=== PATIENT | female | born 2000 | race Hispanic/Latino ===

== ENCOUNTER 2018-01-08 13:26 | Emergency (ER) | payer OTHER, SELFPAY ==
[2018-01-08] MEDS ORDERED: NA CHLORIDE 0.9% 1,000 ML ONE (14:02)
--- NOTE | 2018-01-08 14:26 | RAD REPORT ---
EXAM DESCRIPTION: US - Transvaginal OB - 01/08/2018 2:20 pm CLINICAL HISTORY: Pelvic pain, vaginal bleeding. COMPARISON: None. FINDINGS: The uterus is normal in size, shape and echotexture. The uterus measures 7.4 x 4.5 x 3.3 c m The endometrial stripe measures 7 mm, normal. Both ovaries are normal in size, shape and echotexture. The right ovary measures 3.5 x 2.4 x 2.4 cm. The left ovary measures 3.0 x 1.5 x 1.4 cm. 2 cm right ovarian follicle noted. No ovarian or parova brennan lesions. No adnexal masses. Normal Doppler blood flow was demonstrated to both ovaries. No pelvic ascites. IMPRESSION: Unremarkable study.
[2018-01-08 14:51] LABS: Absolute Lymphocytes (CBC) 2.4 K/uL (0.7-4.9); Absolute Monocytes 0.6 K/uL (0.1-1.3); Absolute Neutrophil 4.4 K/uL (1.8-8.0); Basophils % 0.9 % (0-1.3); Eosinophils % 2.6 % (0-4.4); Hematocrit 34.5 % (36.0-45.0); Lymphocytes % 31.4 % (15.3-44.8); MCH 22.5 pg (27.0-35.0); MCV 70.5 fL (80-100); MPV 9.2 fL (7.6-11.3); Monocytes % 7.8 % (3.3-12.3)
[2018-01-08 15:07] LABS: Bicarbonate 24 mEq/L (21-31); Glucose Level 88 mg/dL (65-120); Potassium 3.5 mEq/L (3.6-5.0); Sodium Level 136 mEq/L (135-145)
[2018-01-08 15:08] LABS: BUN Blood Urea Nitrogen 9 mg/dL (6-20)
[2018-01-08 15:20] LABS: HCG, Quantitative 6.3 mIU/mL (<5)
[2018-01-08 15:35] LABS: Urine Blood 3+ (NEG); Urine Glucose NEGATIVE (NEG); Urine Protein 3+ (NEG); Urine Specific Gravity >1.030 (1.005-1.030); Urine pH 6.5 (5.0-7.0)
[2018-01-08] MEDS ORDERED: POTASSIUM CL SA 10 MEQ TAB PO ONE (15:39)
--- NOTE | 2018-01-08 15:39 | ER ---
Nurse's Notes [facility] Name: Arina Valdes Age: 17 yrs Sex: Female : 2000 Arrival Date: 01/08/2018 Time: 13:30 Bed 16 Private MD: Diagnosis: Abnormal uterine and vaginal bleeding, unspecified;Dysmenorrhea, unspecified;Hypokalemia;Spontaneous Presentation: 01/08 13:36 Presenting complaint: Patient states: Heavy vaginal bleeding since last night. Seen in ER at [place] yesterday for same complaint. Transition of care: patient was not received from another setting of care. Onset of symptoms was January 07, 2018. Initial Sepsis Screen: Does the patient meet any 2 criteria? No. Patient's initial sepsis screen is negative. Does the patient have a suspected source of infection? No. Patient's initial sepsis screen is negative. Care prior to arrival: None. 13:36 Method Of Arrival: Ambulatory 13:36 Acuity: PEYTON 3 Triage Assessment: 13:39 General: Appears in no apparent distress. comfortable, Behavior is calm, cooperative, aj appropriate for age. Pain: Complains of pain in coccyx, left lower back, right lower back and pelvis Pain currently is 7 out of 10 on a pain scale. Neuro: Level of Consciousness is awake, alert, obeys commands, Oriented to person, place, time, situation, Appropriate for age. Respiratory: Airway is patent Respiratory effort is even, unlabored, Respiratory pattern is regular, symmetrical. : Reports vaginal bleeding that is with clots, heavy flow. Derm: Skin is intact, is healthy with good turgor, Skin is pink, warm \T\ dry. normal. 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 - Social history:: Smoking status: Patient/guardian denies using tobacco. - Family history:: not pertinent. - Hospitalizations: : No recent hospitalization is reported. Screenin:00 Abuse screen: Denies threats or abuse. Denies injuries from another. Nutritional jl7 screening: No deficits noted. Tuberculosis screening: No symptoms or risk factors identified. Fall Risk IV access (20 points). Total Templeton Fall Scale indicates No Risk (0-24 pts). Assessment: 14:00 Obstetrical Assessment: Patient reports abdominal cramping. General: Appears in no jl7 apparent distress. uncomfortable, Behavior is calm, cooperative, appropriate for age. Pain: Complains of pain in right lower quadrant and left lower quadrant Pain does not radiate. Pain currently is 7 out of 10 on a pain scale. Quality of pain is described as crampy, Pain began 1 day ago. Is continuous. Neuro: Level of Consciousness is awake, alert, obeys commands, Oriented to person, place, time, situation. Cardiovascular: Patient's skin is warm and dry. Respiratory: Airway is patent Respiratory effort is even, unlabored, Respiratory pattern is regular, symmetrical. GI: No signs and/or symptoms were reported involving the gastrointestinal system. : Reports vaginal bleeding that is bright red, with clots. EENT: No signs and/or symptoms were reported regarding the EENT system. Derm: Skin is pink, warm \T\ dry. Musculoskeletal: No signs and/or symptoms reported regarding the musculoskeletal system. 15:00 Reassessment: No changes from previously documented assessment. Patient and/or family jl7 updated on plan of care and expected duration. Pain level reassessed. Patient is alert, oriented x 3, equal unlabored respirations, skin warm/dry/pink. 15:45 Reassessment: Awaiting RH results from lab before discharge per Dr. Warner. jl7 Vital Signs: 13:39 BP 135 / 92; Pulse 90; Resp 20; Temp 97.4; Pulse Ox 100% on R/A; Weight 90.72 kg; aj Height 5 ft. 5 in. (165.10 cm); Pain 7/10; 14:30 BP 110 / 85; Pulse 89; Resp 16 S; Pulse Ox 100% on R/A; jl7 15:30 BP 108 / 60; Pulse 66; Resp 16 S; Pulse Ox 100% on R/A; jl7 13:39 Body Mass Index 33.28 (90.72 kg, 165.10 cm) ED Course: 13:30 Patient arrived in ED. mr 13:38 Triage completed. aj 13:39 Arm band placed on right wrist. Patient placed in waiting room, Patient notified of wait time. 13:58 Remigio Warner MD is Attending Physician. [facility] 14:00 Patient has correct armband on for positive identification. Placed in gown. Bed in low jl7 position. Call light in reach. Side rails up X 1. color television console monitor on. Pulse ox on. NIBP on. 14:01 Lucina Zambrano, CARLOS is Primary Nurse. jl7 14:15 Patient taken to ultrasound. via wheelchair. hr 14:16 US Transvaginal Ob In Process Unspecified. EDPA 14:21 Ultrasound completed. Patient tolerated well. Patient moved back from ultrasound. aa4 15:00 Initial lab(s) drawn, by ED staff, sent to lab. Inserted saline lock: 22 gauge in left jl7 antecubital area, using aseptic technique. Blood collected. 15:30 Straight cath inserted, using sterile technique, 16 Fr. Specimen obtained. Returned jl7 clear yellow urine. Patient tolerated well. 15:38 Marty Martins MD is Referral Physician. [facility] 15:47 Awaiting lab results. jl7 16:17 No provider procedures requiring assistance completed. IV discontinued, intact, jl7 bleeding controlled, No redness/swelling at site. Pressure dressing applied. Administered Medications: 14:45 Drug: NS 0.9% 1000 ml Route: IV; Rate: 1 bolus; Site: left antecubital; jl7 15:46 Follow up: IV Status: Completed infusion jl7 15:46 Drug: Potassium Chloride 20 mEq Route: PO; jl7 15:54 Follow up: Response: No adverse reaction jl7 Point of Care Testing: Urine : 15:40 hCG Reading: Negative; Control Reading: Negative; jl7 Outcome: 15:39 Discharge ordered by . [facility] 16:17 Discharged to home ambulatory. jl7 16:17 Condition: stable 16:17 Discharge instructions given to patient, Instructed on discharge instructions, follow up and referral plans. Demonstrated understanding of instructions, follow-up care. 16:19 Patient left the ED. jl7 Signatures: Dispatcher [employer] Tiffany Lamas, RN Remigio Robin MD MD cha Rivera, Maria mr Roel, Lesly hr Tiffany Guerra aa4 Lucina Zambrano RN RN jl7
--- NOTE | 2018-01-08 15:39 | EDPHYS ---
Physician Documentation [facility] Name: Arina Valdes Age: 17 yrs Sex: Female : 2000 Arrival Date: 01/08/2018 Time: 13:30 Bed 16 Private MD: ED Physician Remigio Warner HPI: 01/08 14:28 This 17 yrs old Female presents to ER via Ambulatory with complaints of vidya Vaginal Bleeding, + Preg <12wks. 14:28 The patient presents to the emergency department with vaginal bleeding, that is vidya moderate. The estimated gestational age is 12 weeks. course: care: none. Associated signs and symptoms: Pertinent positives: nausea. The patient has not experienced similar symptoms in the past. 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 - Social history:: Smoking status: Patient/guardian denies using tobacco. - Family history:: not pertinent. - Hospitalizations: : No recent hospitalization is reported. ROS: 14:28 Constitutional: Negative for fever, chills, and weight loss, Eyes: Negative for injury, vidya pain, redness, and discharge, ENT: Negative for injury, pain, and discharge, Neck: Negative for injury, pain, and swelling, Cardiovascular: Negative for chest pain, palpitations, and edema, Respiratory: Negative for shortness of breath, cough, wheezing, and pleuritic chest pain, Abdomen/GI: Negative for abdominal pain, nausea, vomiting, diarrhea, and constipation, Back: Negative for injury and pain, : Negative for injury, bleeding, discharge, and swelling, MS/Extremity: Negative for injury and deformity, Skin: Negative for injury, rash, and discoloration, Neuro: Negative for headache, weakness, numbness, tingling, and seizure, Psych: Negative for depression, anxiety, suicide ideation, homicidal ideation, and hallucinations, Allergy/Immunology: Negative for hives, rash, and allergies, Endocrine: Negative for neck swelling, polydipsia, polyuria, polyphagia, and marked weight changes. Exam: 14:28 Constitutional: This is a well developed, well nourished patient who is awake, alert, vidya and in no acute distress. Head/Face: Normocephalic, atraumatic. Eyes: Pupils equal round and reactive to light, extra-ocular motions intact. Lids and lashes normal. Conjunctiva and sclera are non-icteric and not injected. Cornea within normal limits. Periorbital areas with no swelling, redness, or edema. ENT: Nares patent. No nasal discharge, no septal abnormalities noted. Tympanic membranes are normal and external auditory canals are clear. Oropharynx with no redness, swelling, or masses, exudates, or evidence of obstruction, uvula midline. Mucous membranes moist. Neck: Trachea midline, no thyromegaly or masses palpated, and no cervical lymphadenopathy. Supple, full range of motion without nuchal rigidity, or vertebral point tenderness. No Meningismus. Chest/axilla: Normal chest wall appearance and motion. Nontender with no deformity. No lesions are appreciated. Cardiovascular: Regular rate and rhythm with a normal S1 and S2. No gallops, murmurs, or rubs. Normal PMI, no JVD. No pulse deficits. Respiratory: Lungs have equal breath sounds bilaterally, clear to auscultation and percussion. No rales, rhonchi or wheezes noted. No increased work of breathing, no retractions or nasal flaring. Abdomen/GI: Soft, non-tender, with normal bowel sounds. No distension or tympany. No guarding or rebound. No evidence of tenderness throughout. Back: No spinal tenderness. No costovertebral tenderness. Full range of motion. Pelvic Exam: Normal external genitalia. Speculum exam with closed cervical os, no discharge or bleeding noted. Bimanual exam with normal adnexa, no adnexal or cervical motion tenderness. Normal uterus. Female : Normal external genitalia. Skin: Warm, dry with normal turgor. Normal color with no rashes, no lesions, and no evidence of cellulitis. Vital Signs: 13:39 BP 135 / 92; Pulse 90; Resp 20; Temp 97.4; Pulse Ox 100% on R/A; Weight 90.72 kg; aj Height 5 ft. 5 in. (165.10 cm); Pain 7/10; 14:30 BP 110 / 85; Pulse 89; Resp 16 S; Pulse Ox 100% on R/A; [facility] 15:30 BP 108 / 60; Pulse 66; Resp 16 S; Pulse Ox 100% on R/A; [facility] 13:39 Body Mass Index 33.28 (90.72 kg, 165.10 cm) aj MDM: 13:58 Patient medically screened. [facility] 15:43 Data reviewed: vital signs, nurses notes, lab test result(s), radiologic studies, vidya ultrasound. 01/08 13:59 Order name: Quantitative Hcg; Complete Time: 15:37 [facility] 01/08 13:59 Order name: Abo/rh Typing; Complete Time: 16:01 [facility] 01/08 13:59 Order name: Basic Metabolic Panel; Complete Time: 15:37 [facility] 01/08 13:59 Order name: CBC with Diff; Complete Time: 15:09 [facility] 01/08 14:26 Order name: Urine Culture [facility] 01/08 14:31 Order name: Urine Dipstick--Ancillary (enter results); Complete Time: 15:37 [facility] 01/08 13:59 Order name: Urine Test (obtain specimen); Complete Time: 16:00 [facility] 01/08 13:59 Order name: US Transvaginal Ob; Complete Time: 15:09 [facility] 01/08 14:31 Order name: Urine --Ancillary (enter results); Complete Time: 15:37 [facility] 01/08 14:45 Order name: Test, Serum; Complete Time: 15:48 [facility] 01/08 15:40 Order name: Urine Dipstick--Ancillary (enter results); Complete Time: 15:44 [facility] 01/08 15:40 Order name: Urine --Ancillary (enter results); Complete Time: 15:44 [facility] 01/08 13:59 Order name: IV Saline Lock; Complete Time: 15:47 [facility] 01/08 13:59 Order name: Labs collected and sent; Complete Time: 15:47 [facility] 01/08 13:59 Order name: NPO; Complete Time: 15:47 [facility] 01/08 13:59 Order name: Urine Dipstick-Ancillary (obtain specimen); Complete Time: 14:46 [facility] 01/08 14:59 Order name: Labs - recollect needed; Complete Time: 15:46 mw2 Administered Medications: 14:45 Drug: NS 0.9% 1000 ml Route: IV; Rate: 1 bolus; Site: left antecubital; 7 15:46 Follow up: IV Status: Completed infusion 15:46 Drug: Potassium Chloride 20 mEq Route: PO; 15:54 Follow up: Response: No adverse reaction [facility] Point of Care Testing: Urine : 15:40 hCG Reading: Negative; Control Reading: Negative; jl7 Disposition: 01/08/18 15:39 Discharged to Home. Impression: Abnormal uterine and vaginal bleeding, unspecified, Dysmenorrhea, unspecified, Hypokalemia, Spontaneous . - Condition is Stable. - Discharge Instructions: Potassium Content of Foods, Dysmenorrhea, Miscarriage, Pelvic Rest, Dysmenorrhea, [id number], Miscarriage, [id number], Hypokalemia. - Medication Reconciliation Form, Thank You Letter, Antibiotic Education, Prescription Opioid Use form. - Follow up: Private Physician; When: 2 - 3 days; Reason: Recheck today's complaints, Continuance of care, Re-evaluation by your physician. Follow up: Marty Martins; When: 2 - 3 days; Reason: Recheck today's complaints, Re-evaluation by your physician. - Problem is new. - Symptoms have improved. Signatures: Dispatcher [employer] Tiffany Lamas RN RN aj Anderson, Corey, MD MD cha Leal, Jahala, RN RN Du Travis mw2
[2018-01-08 15:41] LABS: Urine Blood TRACE (NEG); Urine Glucose NEGATIVE (NEG); Urine Protein NEGATIVE (NEG); Urine pH 7.5 (5.0-7.0)
== END 2018-01-08 16:19 | disposition home or self-care (01) ==
LOC: ER 13:26
DX: O03.9 Complete or unspecified spontaneous abortion without complication (principal); E87.6 Hypokalemia
CPT/HCPCS: 36415; 51702; 76817; 80048; 81003; 81025; 84702; 84703; 85025; 86900; 86901; 87086; 87088; 88305; 96360; 99285; J7030

== ENCOUNTER 2018-02-26 18:07 | Emergency (ER) | payer SELFPAY ==
[2018-02-26 19:22] LABS: Urine Blood TRACE (NEG); Urine Glucose NEGATIVE (NEG); Urine Protein 2+ (NEG); Urine Specific Gravity 1.025 (1.005-1.030)
[2018-02-26 20:06] LABS: Urine Bacteria >50 /HPF (<20); Urine Culture Reflex Order REFLEXED; Urine Yeast MANY (NONE SEEN); Urine Yeast with Hyphae PRESENT
--- NOTE | 2018-02-26 20:11 | ER ---
Nurse's Notes [facility] Name: Arina Valdes Age: 17 yrs Sex: Female : 2000 Arrival Date: 02/26/2018 Time: 18:10 Bed 27 Private MD: None, None Diagnosis: Urinary tract infection, site not specified;Candidiasis of vulva and vagina Presentation: 02/26 18:24 Presenting complaint: Patient states: pt c/o abdominal pain for the past 2-3 days, ch vomiting started today. Transition of care: patient was not received from another setting of care. Onset of symptoms was February 23, 2018. Risk Assessment: Do you want to hurt yourself or someone else? Patient reports no desire to harm self or others. Initial Sepsis Screen: Does the patient meet any 2 criteria? No. Patient's initial sepsis screen is negative. Does the patient have a suspected source of infection? No. Patient's initial sepsis screen is negative. Care prior to arrival: None. 18:24 Method Of Arrival: Ambulatory 18:24 Acuity: PEYTON 3 ch Triage Assessment: 18:25 General: Appears in no apparent distress. comfortable. 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 - Social history:: Smoking status: Patient/guardian denies using tobacco. - Ebola Screening: : Patient negative for fever greater than or equal to 101.5 degrees Fahrenheit, and additional compatible Ebola Virus Disease symptoms Patient denies exposure to infectious person Patient denies travel to an Ebola-affected area in the 21 days before illness onset No symptoms or risks identified at this time. Screenin:30 Abuse screen: Denies threats or abuse. Denies injuries from another. Nutritional ed1 screening: No deficits noted. Tuberculosis screening: No symptoms or risk factors identified. Fall Risk None identified. Assessment: 18:30 General: Appears in no apparent distress. Behavior is calm, cooperative. Pain: ed1 Complains of pain in suprapubic area Pain does not radiate. Pain currently is 6 out of 10 on a pain scale. Quality of pain is described as burning, aching, Pain began 1 day ago. Is continuous. Neuro: Level of Consciousness is awake, alert, obeys commands, Oriented to person, place, time, situation. Cardiovascular: Denies chest pain, Heart tones S1 S2 present. Respiratory: Airway is patent Respiratory effort is even, unlabored, Respiratory pattern is regular, symmetrical, Breath sounds are clear bilaterally. GI: Abdomen is non-distended, Bowel sounds present X 4 quads. Abd is soft and non tender X 4 quads. Reports nausea, Patient currently denies diarrhea, vomiting. : Reports previous UTI's. EENT: No signs and/or symptoms were reported regarding the EENT system. Derm: Skin is pink, warm \T\ dry. Musculoskeletal: Circulation, motion, and sensation intact. 19:32 Reassessment: Patient appears in no apparent distress at this time. No changes from ed1 previously documented assessment. Patient and/or family updated on plan of care and expected duration. Pain level reassessed. Patient is alert, oriented x 3, equal unlabored respirations, skin warm/dry/pink. Patient states symptoms have not improved. Vital Signs: 18:25 BP 121 / 70; Pulse 92; Resp 18; Pulse Ox 99% on R/A; Weight 95.71 kg; Height 5 ft. 5 ch in. (165.10 cm); Pain 6/10; 19:32 BP 123 / 84; Pulse 66; Resp 17; Pulse Ox 100% on R/A; Pain 6/10; ed1 18:25 Body Mass Index 35.11 (95.71 kg, 165.10 cm) ED Course: 18:10 Patient arrived in ED. sb2 18:11 None, None is Private Physician. sb2 18:24 Romina Guy, CARLOS is Primary Nurse. 18:25 Triage completed. 18:25 Arm band placed on left wrist. Patient placed in an exam room, on a stretcher. ch 18:29 Hipolito Negron PA is PHCP. jr8 18:29 Richard Segovia MD is Attending Physician. jr8 18:30 Patient has correct armband on for positive identification. Placed in gown. Bed in low ed1 position. Call light in reach. Adult w/ patient. 18:36 Elaine Atkinson LVN is Primary Nurse. ed1 20:44 No provider procedures requiring assistance completed. Patient did not have IV access ed1 during this emergency room visit. Administered Medications: 20:42 Drug: DiFLUcan 150 mg Route: PO; ed1 20:42 Follow up: Response: Medication administered at discharge. ed1 20:42 Drug: Zofran 4 mg Route: PO; ed1 20:42 Follow up: Response: Medication administered at discharge. ed1 Outcome: 20:10 Discharge ordered by . ladi 20:44 Discharged to home ambulatory. ed1 20:44 Condition: good 20:44 Discharge instructions given to patient, Instructed on discharge instructions, follow up and referral plans. medication usage, Demonstrated understanding of instructions, follow-up care, medications, Prescriptions given X 3. 20:45 Patient left the ED. ed1 Signatures: Romina Guy, RN RN Elaine Tucker LVN CODING AND REIMBURSEMENT SPECIALIST ed1 Hipolito Negron PA PA jr8 Billeau, Sheri sb2
--- NOTE | 2018-02-26 20:11 | EDPHYS ---
Physician Documentation [facility] Name: Arina Valdes Age: 17 yrs Sex: Female : 2000 Arrival Date: 02/26/2018 Time: 18:10 Bed 27 Private MD: None, None ED Physician Richard Segovia HPI: 02/26 20:03 This 17 yrs old Female presents to ER via Ambulatory with complaints of jr8 Abdominal Pain, Nausea/Vomiting. 20:03 The patient presents with abdominal pain in the lower abdomen. Onset: The jr8 symptoms/episode began/occurred acutely, yesterday. The symptoms do not radiate. Associated signs and symptoms: Pertinent positives: nausea and vomiting. The symptoms are described as crampy. Modifying factors: The symptoms are alleviated by nothing, the symptoms are aggravated by nothing. Severity of pain: At its worst the pain was moderate in the emergency department the pain is unchanged. The patient has not experienced similar symptoms in the past. The patient has not recently seen a physician. 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 - Social history:: Smoking status: Patient/guardian denies using tobacco. - Ebola Screening: : Patient negative for fever greater than or equal to 101.5 degrees Fahrenheit, and additional compatible Ebola Virus Disease symptoms Patient denies exposure to infectious person Patient denies travel to an Ebola-affected area in the 21 days before illness onset No symptoms or risks identified at this time. ROS: 20:03 Eyes: Negative for injury, pain, redness, and discharge, ENT: Negative for injury, jr8 pain, and discharge, Neck: Negative for injury, pain, and swelling, Cardiovascular: Negative for chest pain, palpitations, and edema, Respiratory: Negative for shortness of breath, cough, wheezing, and pleuritic chest pain, Back: Negative for injury and pain, MS/Extremity: Negative for injury and deformity, Skin: Negative for injury, rash, and discoloration, Neuro: Negative for headache, weakness, numbness, tingling, and seizure. 20:03 Abdomen/GI: Positive for abdominal pain, nausea and vomiting, Negative for diarrhea, constipation, abdominal cramps, abdominal distension, anorexia, dysphagia, hematemesis, black/tarry stool, rectal pain, rectal bleeding, bowel incontinence, flatulence. 20:03 : Positive for urinary symptoms, burning with urination. Exam: 20:03 Eyes: Pupils equal round and reactive to light, extra-ocular motions intact. Lids and jr8 lashes normal. Conjunctiva and sclera are non-icteric and not injected. Cornea within normal limits. Periorbital areas with no swelling, redness, or edema. ENT: Nares patent. No nasal discharge, no septal abnormalities noted. Tympanic membranes are normal and external auditory canals are clear. Oropharynx with no redness, swelling, or masses, exudates, or evidence of obstruction, uvula midline. Mucous membranes moist. Neck: Trachea midline, no thyromegaly or masses palpated, and no cervical lymphadenopathy. Supple, full range of motion without nuchal rigidity, or vertebral point tenderness. No Meningismus. Cardiovascular: Regular rate and rhythm with a normal S1 and S2. No gallops, murmurs, or rubs. Normal PMI, no JVD. No pulse deficits. Respiratory: Lungs have equal breath sounds bilaterally, clear to auscultation and percussion. No rales, rhonchi or wheezes noted. No increased work of breathing, no retractions or nasal flaring. Back: No spinal tenderness. No costovertebral tenderness. Full range of motion. Skin: Warm, dry with normal turgor. Normal color with no rashes, no lesions, and no evidence of cellulitis. MS/ Extremity: Pulses equal, no cyanosis. Neurovascular intact. Full, normal range of motion. Neuro: Awake and alert, GCS 15, oriented to person, place, time, and situation. Cranial nerves II-XII grossly intact. Motor strength 5/5 in all extremities. Sensory grossly intact. Cerebellar exam normal. Normal gait. 20:03 Abdomen/GI: Inspection: obese Bowel sounds: active, all quadrants, Palpation: soft, in all quadrants, mild abdominal tenderness, in the suprapubic area, mass, is not appreciated, rebound tenderness, is not appreciated, voluntary guarding, is not appreciated, involuntary guarding, is not appreciated, no appreciated organomegaly, Indicators: McBurney's point is not tender, Hayward's sign is negative, Rovsing's sign is negative, Liver: no appreciated palpable abnormalities, tenderness, is not appreciated. Vital Signs: 18:25 BP 121 / 70; Pulse 92; Resp 18; Pulse Ox 99% on R/A; Weight 95.71 kg; Height 5 ft. 5 ch in. (165.10 cm); Pain 6/10; 19:32 BP 123 / 84; Pulse 66; Resp 17; Pulse Ox 100% on R/A; Pain 6/10; ed1 18:25 Body Mass Index 35.11 (95.71 kg, 165.10 cm) ch MDM: 18:29 Patient medically screened. jr8 20:09 Data reviewed: vital signs, nurses notes, lab test result(s), and as a result, I will jr8 discharge patient. Data interpreted: Pulse oximetry: on room air is 100 %. Interpretation: normal. Counseling: I had a detailed discussion with the patient and/or guardian regarding: the historical points, exam findings, and any diagnostic results supporting the discharge/admit diagnosis, lab results, the need for outpatient follow up, a family practitioner, to return to the emergency department if symptoms worsen or persist or if there are any questions or concerns that arise at home. 02/26 18:42 Order name: Urine Microscopic Only; Complete Time: 20:09 [facility] 02/26 18:47 Order name: Urine Dipstick--Ancillary (enter results); Complete Time: 19:56 ag 02/26 18:47 Order name: Urine --Ancillary (enter results); Complete Time: 19:56 02/26 20:07 Order name: Urine Culture [facility] 02/26 18:42 Order name: Urine Dipstick-Ancillary (obtain specimen); Complete Time: 18:51 [facility] 02/26 18:43 Order name: Urine Test (obtain specimen); Complete Time: 18:51 [facility] Administered Medications: 20:42 Drug: DiFLUcan 150 mg Route: PO; ed1 20:42 Follow up: Response: Medication administered at discharge. ed1 20:42 Drug: Zofran 4 mg Route: PO; ed1 20:42 Follow up: Response: Medication administered at discharge. ed1 Disposition: 02/26/18 20:10 Discharged to Home. Impression: Urinary tract infection, site not specified, Candidiasis of vulva and vagina. - Condition is Stable. - Discharge Instructions: Urinary Tract Infection. - Prescriptions for Pyridium 200 mg Oral Tablet - take 1 tablet by ORAL route every 8 hours for 3 days; 9 tablet. Zofran 4 mg Oral Tablet - take 1 tablet by ORAL route every 12 hours As needed; 20 tablet. Macrobid 100 mg Oral Capsule - take 1 capsule by ORAL route every 12 hours for 7 days; 14 capsule. - Work release form, Medication Reconciliation Form, Thank You Letter, Antibiotic Education, Prescription Opioid Use form. - Follow up: Private Physician; When: 1 week; Reason: Recheck today's complaints, Continuance of care, Re-evaluation by your physician. - Problem is new. - Symptoms have improved. Addendum: 03/06/2018 11:52 Co-signature as Attending Physician, Richard Segovia MD. g s Signatures: Dispatcher [employer] EDMS Romina Guy, CARLOS RN Elaine Atkinson, CASTING AND CURING OPERATOR CASTING AND CURING OPERATOR ed1 Hipolito Negron PA PA jr8 Richard Segovia MD MD Corrections: (The following items were deleted from the chart) 02/26 20:45 20:10 02/26/2018 20:10 Discharged to Home. Impression: Urinary tract infection, site ed1 not specified; Candidiasis of vulva and vagina. Condition is Stable. Forms are Medication Reconciliation Form, Thank You Letter, Antibiotic Education, Prescription Opioid Use. Follow up: Private Physician; When: 1 week; Reason: Recheck today's complaints, Continuance of care, Re-evaluation by your physician. Problem is new. Symptoms have improved. jr8
[2018-02-26] MEDS ORDERED: ONDANSETRON 4 MG (ODT) TAB ONE (20:41)
[2018-02-26] MEDS ORDERED: FLUCONAZOLE 100 MG TAB ONE (20:41)
== END 2018-02-26 20:45 | disposition home or self-care (01) ==
LOC: ER 18:07
DX: N39.0 Urinary tract infection, site not specified (principal); B37.3 Candidiasis of vulva and vagina
CPT/HCPCS: 81003; 81015; 81025; 87086; 87088; 99283

== ENCOUNTER 2018-04-28 13:20 | Emergency (ER) | payer SELFPAY ==
[2018-04-28 15:37] LABS: Urine Appearance CLOUDY; Urine Bilirubin NEGATIVE (NEG); Urine Blood NEGATIVE (NEG); Urine Color YELLOW; Urine Glucose NEGATIVE (NEG); Urine Protein NEGATIVE (NEG); Urine Specific Gravity 1.015 (1.005-1.030); Urine pH 7.5 (5.0-7.0)
[2018-04-28 15:38] LABS: Specific Gravity 1.015 (1.005-1.030); Urine Microscopic Reflex ORDER UMIC
[2018-04-28 15:49] LABS: Urine Bacteria <20 /HPF (<20); Urine Culture Reflex Order REFLEXED; Urine Mucus 2+ /HPF (NONE SEEN); Urine RBC <5 /HPF (NONE SEEN)
[2018-04-28 15:50] LABS: Urine Trichomonas PRESENT (NONE SEEN)
--- NOTE | 2018-04-28 17:03 | RAD REPORT ---
EXAM DESCRIPTION: US - Transvaginal OB - 04/28/2018 4:51 pm CLINICAL HISTORY: abd cramping, eval for IUP vs ectopic COMPARISON: None FINDINGS: A single gestational sac is seen within the uterus. The shape of the sac is within normal limits for gestational age. No embryonic components are yet seen. Mean sac diameter is 3 mm correspon ding to 4 weeks 6 days gestational age. The placenta is not yet developed due to early gestational age. The maternal adnexa and ovaries are within normal limits. Normal Doppler blood flow was demonstrated to both ovaries. IMPRESSION: The findings are compatible with a very early IUP. Follow-up ultrasound in 10-14 days wo uld be recommended.
--- NOTE | 2018-04-28 17:35 | EDPHYS ---
Physician Documentation [facility] Name: Arina Valdes Age: 17 yrs Sex: Female : 2000 Arrival Date: 04/28/2018 Time: 13:23 Bed 18 Private MD: ED Physician Pancho Sierra HPI: 04/28 15:20 This 17 yrs old Female presents to ER via Ambulatory with complaints of rn Abdominal Pain, Nausea. 15:20 The patient presents to the emergency department with nausea, vomiting. Onset: The rn symptoms/episode began/occurred 3 week(s) ago. Possible causes: unknown. The symptoms are aggravated by nothing. The symptoms are alleviated by nothing. Severity of symptoms: At their worst the symptoms were mild in the emergency department the symptoms have improved. The patient has not experienced similar symptoms in the past. presents with 2-3 weeks of nausea, some vomiting, + lower abd cramping, no vaginal bleeding, has had 2 miscarriages, no trauma, lmp 2 months ago.. 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 - Social history:: Smoking status: Patient/guardian denies using tobacco. - Ebola Screening: : No symptoms or risks identified at this time. - Family history:: not pertinent. - Hospitalizations: : No recent hospitalization is reported. ROS: 15:20 Constitutional: Negative for fever, chills, and weight loss, Eyes: Negative for injury, rn pain, redness, and discharge, Cardiovascular: Negative for chest pain, palpitations, and edema, Respiratory: Negative for shortness of breath, cough, wheezing, and pleuritic chest pain, Abdomen/GI: Negative for diarrhea, and constipation, : Negative for injury, bleeding, discharge, and swelling, MS/Extremity: Negative for injury and deformity, Skin: Negative for injury, rash, and discoloration, Neuro: Negative for headache, weakness, numbness, tingling, and seizure. Exam: 15:20 Constitutional: This is a well developed, well nourished patient who is awake, alert, rn and in no acute distress. Head/Face: Normocephalic, atraumatic. Eyes: Pupils equal round and reactive to light, extra-ocular motions intact. Lids and lashes normal. Conjunctiva and sclera are non-icteric and not injected. Cornea within normal limits. Periorbital areas with no swelling, redness, or edema. Neck: Trachea midline, no thyromegaly or masses palpated, and no cervical lymphadenopathy. Supple, full range of motion without nuchal rigidity, or vertebral point tenderness. No Meningismus. Cardiovascular: Regular rate and rhythm with a normal S1 and S2. No gallops, murmurs, or rubs. Normal PMI, no JVD. No pulse deficits. Respiratory: Lungs have equal breath sounds bilaterally, clear to auscultation and percussion. No rales, rhonchi or wheezes noted. No increased work of breathing, no retractions or nasal flaring. Abdomen/GI: Soft, non-tender, with normal bowel sounds. No distension or tympany. No guarding or rebound. No evidence of tenderness throughout. MS/ Extremity: Pulses equal, no cyanosis. Neurovascular intact. Full, normal range of motion. Equal circumference. Neuro: Awake and alert, GCS 15, oriented to person, place, time, and situation. Cranial nerves II-XII grossly intact. Motor strength 5/5 in all extremities. Sensory grossly intact. Cerebellar exam normal. Normal gait. Vital Signs: 13:56 BP 124 / 59; Pulse 100; Resp 16; Temp 98.5; Pulse Ox 100% on R/A; Pain 6/10; hb 17:58 BP 116 / 75; Pulse 92; Resp 18; Pulse Ox 99% on R/A; aj1 MDM: 14:51 Patient medically screened. rn 17:33 Differential diagnosis: Nonspecific abd pain, ectopic, , STI. Data reviewed: rn vital signs, nurses notes, lab test result(s), radiologic studies, ultrasound, and as a result, I will discharge patient. Counseling: I had a detailed discussion with the patient and/or guardian regarding: the historical points, exam findings, and any diagnostic results supporting the discharge/admit diagnosis, lab results, radiology results, the need for outpatient follow up, to return to the emergency department if symptoms worsen or persist or if there are any questions or concerns that arise at home. Special discussion: I discussed with the patient/guardian in detail that at this point there is no indication for admission to the hospital. It is understood, however, that if the symptoms persist or worsen the patient needs to return immediately for re-evaluation. Based on the history and exam findings, there is no indication for further emergent testing or inpatient evaluation. I discussed with the patient/guardian the need to see the OB Gyne specialist for further evaluation of the symptoms. 17:35 ED course: Pt without vaginal bleeding, no trauma, no indication for RhoGAM, pt states rn O+. 04/28 14:58 Order name: Urine Microscopic Only rn 04/28 15:06 Order name: UA ss 04/28 15:38 Order name: Urinalysis; Complete Time: 17:31 EDOR 04/28 15:39 Order name: Test, Urine; Complete Time: 17:31 EDOR 04/28 15:50 Order name: Urine Microscopic Only; Complete Time: 17:31 EDOR 04/28 16:30 Order name: HCG-Quantitative rn 04/28 14:58 Order name: Urine Dipstick-Ancillary (obtain specimen); Complete Time: 17:24 rn 04/28 16:30 Order name: US Transvaginal Ob rn 04/28 16:30 Order name: Abo/rh Typing rn 04/28 17:03 Order name: US; Complete Time: 17:31 EDOR 04/28 17:48 Order name: ABO/RH typing [facility] 04/28 17:51 Order name: HCG, Quantitative EDOR Administered Medications: No medications were administered Disposition: 04/28/18 17:34 Discharged to Home. Impression: Intrauterine , Trichomoniasis, Urinary tract infection, site not specified. - Condition is Stable. - Discharge Instructions: Trichomoniasis, First Trimester of , and Urinary Tract Infection. - Prescriptions for Metronidazole 0.75 % Vaginal Gel - insert 37.5 milligrams by VAGINAL route once daily for 5 days in the morning and evening; 1 tube. Macrobid 100 mg Oral Capsule - take 1 capsule by ORAL route every 12 hours for 10 days; 20 capsule. - Medication Reconciliation Form, Thank You Letter, Antibiotic Education, Prescription Opioid Use form. - Follow up: Private Physician; When: As needed; Reason: Recheck today's complaints, Re-evaluation by your physician. - Problem is an ongoing problem. - Symptoms have improved. Signatures: Dispatcher [employer] EDIsa Alicia RN RN aj1 Pancho Sierra MD MD rn Baxter, Heather, RN RN Corrections: (The following items were deleted from the chart) 17:59 17:34 04/28/2018 17:34 Discharged to Home. Impression: Intrauterine ; aj1 Trichomoniasis; Urinary tract infection, site not specified. Condition is Stable. Discharge Instructions: Trichomoniasis, First Trimester of , and Urinary Tract Infection. Prescriptions for Metronidazole 0.75 % Vaginal Gel - insert 37.5 milligrams by VAGINAL route once daily for 5 days in the morning and evening; 1 tube, Macrobid 100 mg Oral Capsule - take 1 capsule by ORAL route every 12 hours for 10 days; 20 capsule. and Forms are Medication Reconciliation Form, Thank You Letter, Antibiotic Education, Prescription Opioid Use. Follow up: Private Physician; When: As needed; Reason: Recheck today's complaints, Re-evaluation by your physician. Problem is an ongoing problem. Symptoms have improved. rn
--- NOTE | 2018-04-28 17:35 | ER ---
Nurse's Notes [facility] Name: Arina Valdes Age: 17 yrs Sex: Female : 2000 Arrival Date: 04/28/2018 Time: 13:23 Bed 18 Private MD: Diagnosis: Intrauterine ;Trichomoniasis;Urinary tract infection, site not specified Presentation: 04/28 13:55 Presenting complaint: Patient states: Lower abdominal cramping and nausea x 3 weeks. hb Denies V/D/fever. Transition of care: patient was not received from another setting of care. Onset of symptoms is unknown. Risk Assessment: Do you want to hurt yourself or someone else? Patient reports no desire to harm self or others. Care prior to arrival: None. 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 - Social history:: Smoking status: Patient/guardian denies using tobacco. - Ebola Screening: : No symptoms or risks identified at this time. - Family history:: not pertinent. - Hospitalizations: : No recent hospitalization is reported. Screenin:33 Abuse screen: Denies threats or abuse. Denies injuries from another. Nutritional aj1 screening: No deficits noted. Tuberculosis screening: No symptoms or risk factors identified. Assessment: 15:33 General: Appears in no apparent distress. comfortable, Behavior is calm, cooperative, aj1 appropriate for age. Pain: Complains of pain in right lower quadrant and left lower quadrant Pain does not radiate. Pain currently is 6 out of 10 on a pain scale. Quality of pain is described as stabbing, throbbing, Pain began 3 weeks ago Is intermittent, Alleviated by nothing. Aggravated by nothing. Neuro: Level of Consciousness is awake, alert, obeys commands. Cardiovascular: Patient's skin is warm and dry. Respiratory: Airway is patent Respiratory effort is even, unlabored, Respiratory pattern is regular, symmetrical. GI: Abdomen is non-distended, Bowel sounds present X 4 quads. Abd is soft X 4 quads Abdomen is tender to palpation in left lower quadrant Reports upper abdominal pain, cramping, nausea, vomiting, Patient currently denies diarrhea. : No signs and/or symptoms were reported regarding the genitourinary system. EENT: No signs and/or symptoms were reported regarding the EENT system. Derm: No signs and/or symptoms reported regarding the dermatologic system. Skin is pink, warm \T\ dry. normal. Musculoskeletal: No signs and/or symptoms reported regarding the musculoskeletal system. Circulation, motion, and sensation intact. 16:30 Reassessment: Patient appears in no apparent distress at this time. No changes from aj1 previously documented assessment. Patient and/or family updated on plan of care and expected duration. Pain level reassessed. Patient is alert, oriented x 3, equal unlabored respirations, skin warm/dry/pink. 17:22 Reassessment: Patient appears in no apparent distress at this time. No changes from aj1 previously documented assessment. Patient and/or family updated on plan of care and expected duration. Pain level reassessed. Patient is alert, oriented x 3, equal unlabored respirations, skin warm/dry/pink. Vital Signs: 13:56 BP 124 / 59; Pulse 100; Resp 16; Temp 98.5; Pulse Ox 100% on R/A; Pain 6/10; hb 17:58 BP 116 / 75; Pulse 92; Resp 18; Pulse Ox 99% on R/A; aj1 ED Course: 13:23 Patient arrived in ED. rg4 13:56 Triage completed. hb 13:57 Arm band placed on right wrist. hb 14:51 Isa Martínez, RN is Primary Nurse. aj1 14:51 Pancho Sierra MD is Attending Physician. rn 15:33 Patient has correct armband on for positive identification. Bed in low position. Call aj1 light in reach. Side rails up X 1. 15:33 No provider procedures requiring assistance completed. aj1 16:32 Patient taken to ultrasound. via wheelchair. lc3 16:51 Ultrasound completed. Patient tolerated well. Patient moved back from ultrasound. aa4 17:23 Initial lab(s) drawn, by me, sent to lab. aj1 Administered Medications: No medications were administered Outcome: 17:34 Discharge ordered by . rn 17:59 Patient left the ED. aj1 Signatures: Isa Martínez RN RN aj1 Tiffany Guerra aa4 Pancho Sierra MD MD rn Cunningham, Laulita lc3 Baxter, Heather, RN RN hb Garcia, Rubi rg4 Corrections: (The following items were deleted from the chart) 16:40 16:39 Reassessment: Patient appears in no apparent distress at this time. No changes aj1 from previously documented assessment. Patient and/or family updated on plan of care and expected duration. Pain level reassessed. Patient is alert, oriented x 3, equal unlabored respirations, skin warm/dry/pink. aj1
== END 2018-04-28 17:59 | disposition home or self-care (01) ==
LOC: ER 13:20
DX: A59.9 Trichomoniasis, unspecified (principal); N39.0 Urinary tract infection, site not specified; Z33.1 Pregnant state, incidental
CPT/HCPCS: 36415; 76817; 81003; 81015; 81025; 84702; 86900; 86901; 87086; 87088; 99284

== ENCOUNTER 2018-05-27 15:35 | Emergency (ER) | payer SELFPAY ==
[2018-05-27 16:36] LABS: Absolute Lymphocytes (CBC) 1.7 K/uL (0.7-4.9); Absolute Monocytes 0.5 K/uL (0.1-1.3); Absolute Neutrophil 6.8 K/uL (1.8-8.0); Basophils % 0.6 % (0-1.3); Eosinophils % 1.6 % (0-4.4); Hematocrit 34.9 % (36.0-45.0); Lymphocytes % 18.6 % (15.3-44.8); MCH 23.7 pg (27.0-35.0); MCV 72.5 fL (80-100); MPV 9.6 fL (7.6-11.3); Monocytes % 5.6 % (3.3-12.3); RBC Red Blood Cell Count 4.81 M/uL (3.86-4.86)
--- NOTE | 2018-05-27 16:55 | RAD REPORT ---
EXAM DESCRIPTION: US - Transvaginal OB - 05/27/2018 4:37 pm CLINICAL HISTORY: with vaginal bleeding FINDINGS: The uterus measures 8 x 4 x 5 centimeters. . A gestational sac is not seen within the end ometrium. The cervical canal is thickened and heterogeneous. The ovaries are normal in size and echotexture. No significant free fluid is seen. IMPRESSION: These findings may indicate an incomplete . Other considerations include an amber y IUP in which the gestational sac is not yet seen an even an ectopic . This all should be c orrelated clinically and with appropriate lab values
[2018-05-27 17:23] LABS: BUN Blood Urea Nitrogen 7 mg/dL (7-18); Bicarbonate 25 mmol/L (21-32); Glucose Level 96 mg/dL (74-106); HCG, Quantitative 1434 mIU/mL (1-3); Potassium 3.9 mmol/L (3.5-5.1); Sodium Level 139 mmol/L (136-145)
--- NOTE | 2018-05-27 17:37 | EDPHYS ---
Physician Documentation [facility] Name: Arina Valdes Age: 17 yrs Sex: Female : 2000 Arrival Date: 05/27/2018 Time: 15:39 Bed 15 Private MD: None, None ED Physician Remigio Warner HPI: 05/27 16:46 This 17 yrs old Female presents to ER via Ambulatory with complaints of kb Vaginal Bleeding, + Preg <12wks, Abdominal Cramping. 16:46 The patient presents to the emergency department with abdominal pain, of the right kb lower quadrant and left lower quadrant, that started today, described as crampy, vaginal bleeding, that is moderate, with clots. The estimated gestational age is 9 weeks. course: care: none, Leakage of Fluid: none appreciated, Ultrasound: the patient had an ultrasound, which was normal, Risk/complications: no obvious risks or complications are appreciated. Previous pregnancies: in previous pregnancies patient has had. Associated signs and symptoms: Pertinent positives: abdominal pain, vaginal bleeding, Pertinent negatives: chest pain, diarrhea, dysuria, fever, frequency, nausea, ruptured membranes, seizure, shortness of breath, vaginal discharge, vomiting. The patient has experienced similar episodes in the past, a few times. The patient has been recently seen at the [facility] Emergency Department, a couple of weeks ago. STORE HAND: 15:43 3, Full Term 0, Premature 0, 2, Living 0, LMP 03/09/2018 aa5 16:46 3, 2, Living 0 kb Historical: - Allergies: 15:43 No Known Allergies; aa5 - PMHx: 15:43 None; aa5 - PSHx: 15:43 None; aa5 - Immunization history:: Adult Immunizations up to date. - Social history:: Smoking status: Patient/guardian denies using tobacco. - Ebola Screening: : No symptoms or risks identified at this time. ROS: 16:47 Constitutional: Negative for fever, chills, and weight loss, Cardiovascular: Negative kb for chest pain, palpitations, and edema, Respiratory: Negative for shortness of breath, cough, wheezing, and pleuritic chest pain, Back: Negative for injury and pain, MS/Extremity: Negative for injury and deformity, Skin: Negative for injury, rash, and discoloration, Neuro: Negative for headache, weakness, numbness, tingling, and seizure. 16:47 Abdomen/GI: Positive for abdominal pain, Negative for nausea, vomiting, and diarrhea, constipation, abdominal cramps, abdominal distension, anorexia. 16:47 : Positive for vaginal bleeding. Exam: 16:47 Constitutional: This is a well developed, well nourished patient who is awake, alert, kb and in no acute distress. Head/Face: Normocephalic, atraumatic. Chest/axilla: Normal chest wall appearance and motion. Nontender with no deformity. No lesions are appreciated. Cardiovascular: Regular rate and rhythm with a normal S1 and S2. No gallops, murmurs, or rubs. Normal PMI, no JVD. No pulse deficits. Respiratory: Lungs have equal breath sounds bilaterally, clear to auscultation and percussion. No rales, rhonchi or wheezes noted. No increased work of breathing, no retractions or nasal flaring. Back: No spinal tenderness. No costovertebral tenderness. Full range of motion. Skin: Warm, dry with normal turgor. Normal color with no rashes, no lesions, and no evidence of cellulitis. MS/ Extremity: Pulses equal, no cyanosis. Neurovascular intact. Full, normal range of motion. Neuro: Awake and alert, GCS 15, oriented to person, place, time, and situation. Cranial nerves II-XII grossly intact. Motor strength 5/5 in all extremities. Sensory grossly intact. Cerebellar exam normal. Normal gait. 16:47 Abdomen/GI: Inspection: abdomen appears normal, Bowel sounds: normal, in all quadrants, Palpation: soft, in all quadrants, mild abdominal tenderness, in the right lower quadrant and left lower quadrant. Vital Signs: 15:43 BP 128 / 77; Pulse 88; Resp 18 S; Temp 98.3(TE); Pulse Ox 99% on R/A; Weight 86.18 kg aa5 (R); Height 5 ft. 5 in. (165.10 cm) (R); Pain 7/10; 17:54 BP 126 / 69; Pulse 78; Resp 18; Pulse Ox 99% on R/A; aj 15:43 Body Mass Index 31.62 (86.18 kg, 165.10 cm) aa5 MDM: 16:08 Patient medically screened. kb 16:48 Data reviewed: vital signs, nurses notes. Data interpreted: Pulse oximetry: on room air kb is 99 %. Interpretation: normal. 17:33 Counseling: I had a detailed discussion with the patient and/or guardian regarding: the kb historical points, exam findings, and any diagnostic results supporting the discharge/admit diagnosis, lab results, radiology results, the need for outpatient follow up, an OB/Gyne specialist, to return to the emergency department if symptoms worsen or persist or if there are any questions or concerns that arise at home. 05/27 16:14 Order name: Quantitative Hcg; Complete Time: 17:32 kb 05/27 16:14 Order name: Basic Metabolic Panel; Complete Time: 17:32 kb 05/27 16:14 Order name: CBC with Diff; Complete Time: 16:41 kb 05/27 16:14 Order name: US Transvaginal Ob; Complete Time: 16:56 kb 05/27 17:47 Order name: Urine Dipstick--Ancillary (enter results) bd 05/27 17:47 Order name: Urine --Ancillary (enter results) bd 05/27 16:14 Order name: Urine Test (obtain specimen); Complete Time: 17:47 kb 05/27 16:14 Order name: IV Saline Lock; Complete Time: 16:23 kb 05/27 16:14 Order name: Labs collected and sent; Complete Time: 16:23 kb 05/27 16:14 Order name: NPO; Complete Time: 16:23 kb 05/27 16:14 Order name: Urine Dipstick-Ancillary (obtain specimen); Complete Time: 16:23 kb Administered Medications: No medications were administered Disposition: 05/28 07:03 Co-signature as Attending Physician, Remigio Warner MD I agree with the assessment and vidya plan of care. Disposition: 05/27/18 17:37 Discharged to Home. Impression: Spontaneous . - Condition is Stable. - Discharge Instructions: Miscarriage, [id number]. - Medication Reconciliation Form, Thank You Letter, Antibiotic Education, Prescription Opioid Use form. - Follow up: Emergency Department; When: As needed; Reason: Worsening of condition. Follow up: Private Physician; When: 2 - 3 days; Reason: Recheck today's complaints, Continuance of care, Re-evaluation by your physician. Signatures: Dispatcher [employer] ULISES Briones Lay, FLIGHT STEWARD-C FLIGHT STEWARD-Ckb Tiffany Coffey, RN RN Remigio Felix MD MD cha Calderon, Audri, RN RN aa5 Corrections: (The following items were deleted from the chart) 05/27 17:56 17:37 05/27/2018 17:37 Discharged to Home. Impression: Spontaneous . Condition aj is Stable. Discharge Instructions: Miscarriage, [id number]. Forms are Medication Reconciliation Form, Thank You Letter, Antibiotic Education, Prescription Opioid Use. Follow up: Emergency Department; When: As needed; Reason: Worsening of condition. Follow up: Private Physician; When: 2 - 3 days; Reason: Recheck today's complaints, Continuance of care, Re-evaluation by your physician. kb
--- NOTE | 2018-05-27 17:37 | ER ---
Nurse's Notes [facility] Name: Arina Valdes Age: 17 yrs Sex: Female : 2000 Arrival Date: 05/27/2018 Time: 15:39 Bed 15 Private MD: None, None Diagnosis: Spontaneous Presentation: 05/27 15:41 Presenting complaint: Patient states: vaginal bleeding that began as spotting 3 days aa5 ago and got worse today. Pt also reports lower abd pain today. Pt denies N/V. Pt reports being approximately 9 weeks . Transition of care: patient was not received from another setting of care. Onset of symptoms was May 2018. Risk Assessment: Do you want to hurt yourself or someone else? Patient reports no desire to harm self or others. Initial Sepsis Screen: Does the patient meet any 2 criteria? No. Patient's initial sepsis screen is negative. Does the patient have a suspected source of infection? No. Patient's initial sepsis screen is negative. Care prior to arrival: None. 15:41 Method Of Arrival: Ambulatory aa5 15:41 Acuity: PEYTON 3 aa5 FARMWORKER DAIRY: 15:43 3, Full Term 0, Premature 0, 2, Living 0, LMP 03/09/2018 aa5 16:46 3, 2, Living 0 kb Historical: - Allergies: 15:43 No Known Allergies; aa5 - PMHx: 15:43 None; aa5 - PSHx: 15:43 None; aa5 - Immunization history:: Adult Immunizations up to date. - Social history:: Smoking status: Patient/guardian denies using tobacco. - Ebola Screening: : No symptoms or risks identified at this time. Screenin:24 Abuse screen: Denies threats or abuse. Denies injuries from another. Nutritional aj screening: No deficits noted. Tuberculosis screening: No symptoms or risk factors identified. Fall Risk None identified. Assessment: 16:24 General: Appears in no apparent distress. comfortable, Behavior is calm, cooperative, aj appropriate for age. Pain: Denies pain. Neuro: Level of Consciousness is awake, alert, obeys commands, Oriented to person, place, time, situation, Appropriate for age. Respiratory: Airway is patent Respiratory effort is even, unlabored, Respiratory pattern is regular, symmetrical. : Reports vaginal bleeding that is moderate flow. Derm: Skin is intact, is healthy with good turgor, Skin is pink, warm \T\ dry. normal. 17:54 Obstetrical Assessment: Patient reports abdominal cramping. Reassessment: Patient damien appears in no apparent distress at this time. No changes from previously documented assessment. Patient and/or family updated on plan of care and expected duration. Pain level reassessed. Patient is alert, oriented x 3, equal unlabored respirations, skin warm/dry/pink. family at bedside. Vital Signs: 15:43 BP 128 / 77; Pulse 88; Resp 18 S; Temp 98.3(TE); Pulse Ox 99% on R/A; Weight 86.18 kg aa5 (R); Height 5 ft. 5 in. (165.10 cm) (R); Pain 7/10; 17:54 BP 126 / 69; Pulse 78; Resp 18; Pulse Ox 99% on R/A; aj 15:43 Body Mass Index 31.62 (86.18 kg, 165.10 cm) aa5 Vitals: 17:56 Heart Tones n/a. aj ED Course: 15:39 Patient arrived in ED. mr 15:39 None, None is Private Physician. mr 15:42 Triage completed. aa5 15:43 Arm band placed on. aa5 15:48 Lay Briones [facility]NP-C [facility]. kb 15:48 Remigio Warner MD is Attending Physician. kb 16:11 Tiffany Coffey, CARLOS is Primary Nurse. aj 16:24 Patient has correct armband on for positive identification. aj 16:24 Inserted saline lock: 22 gauge in right antecubital area, using aseptic technique. aj Blood collected. 16:33 US Transvaginal Ob In Process Unspecified. EDMS 17:54 No provider procedures requiring assistance completed. IV discontinued, intact, aj bleeding controlled, No redness/swelling at site. Pressure dressing applied. Administered Medications: No medications were administered Outcome: 17:37 Discharge ordered by . kb 17:54 Discharged to home ambulatory, with family. aj 17:54 Condition: good 17:54 Discharge instructions given to patient, family, Instructed on discharge instructions, follow up and referral plans. Demonstrated understanding of instructions, follow-up care. 17:56 Patient left the ED. aj Signatures: Dispatcher [employer] EDVA Lay Briones FNP-C FNP-MaximilianoTiffany Encarnacion, CARLOS RN Reyna Barrett mr Niyah White RN RN aa5 Corrections: (The following items were deleted from the chart) 15:43 15:41 Presenting complaint: Patient states: vaginal bleeding that began as spotting 3 aa5 days ago and got worse today. Pt also reports lower abd pain today. Pt denies N/V aa5
[2018-05-27 20:25] LABS: Urine Blood 3+ (NEG); Urine Glucose NEGATIVE (NEG); Urine Protein 2+ (NEG); Urine Specific Gravity >1.030 (1.005-1.030); Urine pH 5.5 (5.0-7.0)
== END 2018-05-27 17:56 | disposition home or self-care (01) ==
LOC: ER 15:35
DX: O03.9 Complete or unspecified spontaneous abortion without complication (principal)
CPT/HCPCS: 36415; 76817; 80048; 81003; 81025; 84702; 85025; 99284

== ENCOUNTER 2021-03-28 17:23 | Emergency (ER) | payer SELFPAY ==
--- OUTSIDE RECORDS SUMMARY | 2021-03-28 17:25 | XMS REPORT | Continuity of Care Document ---
:2000 Author Organization [facility] t Address [address] [place] [address] Care Team Providers Name Role Phone Debra Belcher LMSW Attending Clinician Unavailable Leon Melton DO Attending Clinician Zaid ALVARADO Attending Clinician Problems This patient has no known problems. Allergies, Adverse Reactions, Alerts This patient has no known allergies or adverse reactions. Medications This patient has no known medications. Procedures This patient has no known procedures. Encounters Start End Encounter Admission Attending Care Care Encounter Source Date/Time Date/Time Type Type Clinicians Facility Department ID 2021-02-06 2021-02-06 Case Summer Belcher [id number] 00:00:00 00:00:00 Management Jennifer Harrell [id number] [place] [id number] 2020-12-12 2020-12-12 Patient BRENDA Melton [id number] 00:00:00 00:00:00 Outreach Broderick CUEVA [id number] [facility] [id number] PAVILLION [id number] 2019-05-27 2019-05-27 Routine BRENDA Mra [id number] 14:41:30 15:54:53 Itzel Sahni [id number] Visit [place] [id number] [facility] [place] [phone] [address] 2019-05-17 2019-05-17 Office BRENDA Mar [id number] 15:55:01 16:56:25 Visit Itzel Sahni [id number] [place] [id number] [facility] [place] [phone] [facility] Results This patient has no known results.
[2021-03-28 19:02] LABS: Urine Blood Negative (Negative); Urine Glucose Negative (Negative); Urine Protein 1+ (Negative); Urine Specific Gravity >=1.030 (1.005-1.030); Urine pH 6.5 (5.0-7.0)
[2021-03-28 19:22] LABS: Urine Specific Gravity/Preg >1.030 (1.005-1.030)
[2021-03-28 19:41] LABS: Absolute Lymphocytes (CBC) 2.3 K/uL (0.7-4.9); Basophils % 0.3 % (0-1.3); Hematocrit 35.4 % (36.0-45.0); RBC Red Blood Cell Count 5.04 M/uL (3.86-4.86)
[2021-03-28 19:58] LABS: ALT/SGPT 15 U/L (12-78); AST/SGOT 9 U/L (15-37); Albumin 3.8 g/dL (3.4-5.0); Alkaline Phosphatase 71 U/L (45-117); BUN Blood Urea Nitrogen 8 mg/dL (7-18); Bicarbonate 27 mmol/L (21-32); Bilirubin Direct 0.1 mg/dL (0-0.2); Bilirubin Total 0.6 mg/dL (0.2-1.0); Glucose Level 88 mg/dL (74-106); Lipase 123 U/L (73-393); Potassium 3.9 mmol/L (3.5-5.1); Protein, Total 7.7 g/dL (6.4-8.2); Sodium Level 139 mmol/L (136-145)
[2021-03-28 20:27] LABS: Anisocytosis 1+; Blood Morphology Comment NOTED (NOT SEEN); Platelet Estimate ADEQ; White Blood Cell Scan OK (OK)
[2021-03-28] MEDS ORDERED: ONDANSETRON 4 MG/2 ML VIAL ONE (20:29)
[2021-03-28] MEDS ORDERED: NA CHLORIDE 0.9% 1,000 ML ONE (20:29)
[2021-03-28] MEDS ORDERED: KETOROLAC 30 MG/ML INJ ONE (20:29)
--- NOTE | 2021-03-28 20:45 | RAD REPORT ---
EXAM DESCRIPTION: CT - Abdomen Pelvis W Contrast - 03/28/2021 8:26 pm CLINICAL HISTORY: Abdominal pain COMPARISON: 2016 TECHNIQUE: Computed axial tomography of the abdomen pelvis was obtained. 100 cc Isovue-300 was admin istered intravenously. Oral contrast was not requested which limits evaluation of bowel. All CT scans are performed using dose optimization technique as appropriate and may include automated exposure control or mA/KV adjustment according to patient size. FINDINGS: The liver, spleen, pancreas, adrenal and kidneys appear unremarkable. There is no evidence of diverticulitis. Normal appendix. 2.5 centimeter right ovarian cyst without significant fluid. Small umbilical hernia 10 millimeter gallstone IMPRESSION: Cholelithiasis 2.5 centimeter right ovarian cyst without significant fluid.
--- NOTE | 2021-03-28 21:10 | ER ---
Nurse's Notes [facility] Name: Arina Valdes Age: 20 yrs Sex: Female : 2000 Arrival Date: 03/28/2021 Time: 17:26 Bed 14 Private MD: Diagnosis: Other cholelithiasis without obstruction;Other ovarian cysts Presentation: 03/28 17:56 Chief complaint: Patient states: Lower abd cramping for 2 weeks, worse for 1 week. Was ll1 treated for chlamydia yesterday. States they found a lump in her vaginal area with her last exam. Last test negative. Coronavirus screen: Client denies travel out of the [place] in the last 14 days. At this time, the client does not indicate any symptoms associated with coronavirus-19. Ebola Screen: Patient denies travel to an Ebola-affected area in the 21 days before illness onset. Initial Sepsis Screen: Does the patient meet any 2 criteria? No. Patient's initial sepsis screen is negative. Does the patient have a suspected source of infection? Yes: Acute abdominal pain. Risk Assessment: Do you want to hurt yourself or someone else? Patient reports no desire to harm self or others. Onset of symptoms was March 15, 2021. 17:56 Method Of Arrival: Ambulatory ll1 17:56 Acuity: PEYTON 3 ll1 EMERGENCY MAN: 18:54 LMP N/A - tw2 Historical: - Allergies: 17:58 No Known Drug Allergies; ll1 - PMHx: 17:58 UTI; pre eclampsia; ll1 - PSHx: 17:58 None; ll1 - Immunization history:: Flu vaccine is not up to date. - Social history:: Smoking status: Patient denies any tobacco usage or history of. Screenin:52 Abuse screen: Denies threats or abuse. Nutritional screening: No deficits noted. tw2 Tuberculosis screening: No symptoms or risk factors identified. Fall Risk None identified. Assessment: 18:53 General: Appears in no apparent distress. Behavior is calm, cooperative, appropriate tw2 for age. Pain: Complains of pain in abdomen. Neuro: Level of Consciousness is awake, alert, obeys commands, Oriented to person, place, time, situation. Cardiovascular: Patient's skin is warm and dry. Respiratory: Airway is patent Respiratory effort is even, unlabored, Respiratory pattern is regular, symmetrical. GI: Bowel sounds present X 4 quads. Abd is soft X 4 quads Reports cramping. : Reports Being treated for Chlamydia yesterday. Derm: No signs and/or symptoms reported regarding the dermatologic system. Musculoskeletal: Range of motion: intact in all extremities. 20:00 Reassessment: Patient appears in no apparent distress at this time. Patient and/or fu family updated on plan of care and expected duration. Pain level reassessed. Patient is alert, oriented x 3, equal unlabored respirations, skin warm/dry/pink. 21:00 Reassessment: No changes from previously documented assessment. Patient and/or family fu updated on plan of care and expected duration. Pain level reassessed. Patient is alert, oriented x 3, equal unlabored respirations, skin warm/dry/pink. Vital Signs: 17:56 BP 128 / 88; Pulse 69; Resp 17; Temp 97.9; Pulse Ox 100% ; Weight 95.25 kg; Height 5 ll1 ft. 5 in. (165.10 cm); Pain 7/10; 19:00 BP 107 / 61; Pulse 67; Resp 18; Pulse Ox 100% on R/A; fu 20:00 BP 102 / 62; Pulse 58; Resp 16; Pulse Ox 100% on R/A; Pain 8/10; fu 17:56 Body Mass Index 34.95 (95.25 kg, 165.10 cm) ll1 ED Course: 17:26 Patient arrived in ED. ds1 17:58 Triage completed. ll1 17:59 Arm band placed on. ll1 18:51 Kaitlni Hernandez, RN is Primary Nurse. ld1 18:52 Bed in low position. Call light in reach. Pulse ox on. NIBP on. tw2 19:09 Lay Briones FNP-C is PHCP. kb 19:09 Kameron Harp MD is Attending Physician. kb 19:11 Abner Maxwell, CARLOS is Primary Nurse. fu 19:35 Inserted saline lock: 20 gauge in right antecubital area, using aseptic technique. jm8 20:26 CT Abd/Pelvis - IV Contrast Only In Process Unspecified. EDMS 21:45 No provider procedures requiring assistance completed. IV discontinued, bleeding fu controlled, No redness/swelling at site. Pressure dressing applied. Administered Medications: 20:15 Drug: NS 0.9% 1000 ml Route: IV; Rate: 1000 ml; Site: right antecubital; fu 21:58 Follow up: Response: No adverse reaction; IV Intake: 1000ml fu 20:15 Drug: Zofran (Ondansetron) 4 mg Route: IVP; Site: right antecubital; fu 21:15 Follow up: Response: No adverse reaction fu 20:15 Drug: Ketorolac 30 mg Route: IVP; Site: right antecubital; fu 21:15 Follow up: Response: Pain is decreased fu Intake: 21:58 IV: 1000ml; Total: 1000ml. fu Outcome: 21:09 Discharge ordered by . kb 21:50 Patient left the ED. fu 21:50 Discharged to home ambulatory. fu 21:50 Condition: good 21:50 Discharge instructions given to patient, Instructed on discharge instructions, follow up and referral plans. Demonstrated understanding of instructions, follow-up care, Prescriptions given X 2. Signatures: Dispatcher [employer] Lay Cali, WEB CONTENT SPECIALIST-C WEB CONTENT SPECIALIST-CkMaren Benedict ds1 Aurea Diaz RN RN tw2 Abner Maxwell, RN Piper Ybarra RN RN ll1 Kaitlin Hernandez RN RN ld1 Arnoldo Francisco RN RN [id number]
--- NOTE | 2021-03-28 21:10 | EDPHYS ---
Physician Documentation [facility] Name: Arina Valdes Age: 20 yrs Sex: Female : 2000 Arrival Date: 03/28/2021 Time: 17:26 Bed 14 Private MD: ED Physician Kameron Harp HPI: 03/29 00:36 This 20 yrs old Female presents to ER via Ambulatory with complaints of kb Abdominal Cramping. 00:36 The patient presents with abdominal pain in the lower abdomen. Onset: The kb symptoms/episode began/occurred 2 week(s) ago. The symptoms do not radiate. Associated signs and symptoms: none. The symptoms are described as constant, crampy. Modifying factors: The symptoms are alleviated by nothing, the symptoms are aggravated by nothing. Severity of pain: At its worst the pain was mild moderate in the emergency department the pain is unchanged. The patient has not experienced similar symptoms in the past. The patient has not recently seen a physician. 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 - Social history:: Smoking status: Patient denies any tobacco usage or history of. ROS: 03/29 00:35 Constitutional: Negative for fever, chills, and weight loss. kb Abdomen/GI: Positive for abdominal pain, Negative for nausea, vomiting, and diarrhea. All other systems are negative. Exam: 00:35 Constitutional: This is a well developed, well nourished patient who is awake, alert, kb and in no acute distress. Head/Face: Normocephalic, atraumatic. ENT: Moist Mucous membranes Cardiovascular: Regular rate and rhythm with a normal S1 and S2. No gallops, murmurs, or rubs. No pulse deficits. Respiratory: Respirations even and unlabored. No increased work of breathing, no retractions or nasal flaring. Skin: Warm, dry with normal turgor. Normal color. MS/ Extremity: Pulses equal, no cyanosis. Neurovascular intact. Full, normal range of motion. Neuro: Awake and alert, GCS 15, oriented to person, place, time, and situation. Moves all extremities. Normal gait. Psych: Awake, alert, with orientation to person, place and time. Behavior, mood, and affect are within normal limits. 00:35 Abdomen/GI: Inspection: abdomen appears normal, Bowel sounds: normal, in all quadrants, Palpation: soft, in all quadrants, mild abdominal tenderness, in the right lower quadrant and left lower quadrant. Vital Signs: 03/28 17:56 BP 128 / 88; Pulse 69; Resp 17; Temp 97.9; Pulse Ox 100% ; Weight 95.25 kg; Height 5 ll1 ft. 5 in. (165.10 cm); Pain 7/10; 19:00 BP 107 / 61; Pulse 67; Resp 18; Pulse Ox 100% on R/A; fu 20:00 BP 102 / 62; Pulse 58; Resp 16; Pulse Ox 100% on R/A; Pain 8/10; fu 17:56 Body Mass Index 34.95 (95.25 kg, 165.10 cm) ll1 MDM: 19:10 Patient medically screened. kb 03/29 00:34 Data reviewed: vital signs, nurses notes. Data interpreted: Pulse oximetry: on room air kb is 100 %. Interpretation: normal. 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 00:35 ED course: Pt reports she has had cholelithiasis since and manages it with kb diet. 03/28 19:02 Order name: Urine Dipstick-Ancillary; Complete Time: 19:10 EDMS 03/28 19:10 Order name: Urine --Ancillary (enter results) eb 03/28 19:11 Order name: Urine --Ancillary; Complete Time: 19:37 EDMS 03/28 19:13 Order name: Basic Metabolic Panel; Complete Time: 20:00 kb 03/28 19:13 Order name: CBC with Diff; Complete Time: 20:32 kb 03/28 19:13 Order name: Hepatic Function; Complete Time: 20:00 kb 03/28 19:03 Order name: Urine Dipstick-Ancillary (obtain specimen); Complete Time: 19:03 tw2 03/28 19:03 Order name: Urine Test (obtain specimen); Complete Time: 19:03 tw2 03/28 19:13 Order name: Lipase; Complete Time: 20:00 kb 03/28 19:48 Order name: CT Abd/Pelvis - IV Contrast Only; Complete Time: 20:49 kb 03/28 20:25 Order name: CBC Smear Scan; Complete Time: 20:32 EDMS 03/28 19:13 Order name: IV Saline Lock; Complete Time: 19:34 kb 03/28 19:13 Order name: Labs collected and sent; Complete Time: 19:34 kb Administered Medications: 03/28 20:15 Drug: NS 0.9% 1000 ml Route: IV; Rate: 1000 ml; Site: right antecubital; fu 21:58 Follow up: Response: No adverse reaction; IV Intake: 1000ml fu 20:15 Drug: Zofran (Ondansetron) 4 mg Route: IVP; Site: right antecubital; fu 21:15 Follow up: Response: No adverse reaction fu 20:15 Drug: Ketorolac 30 mg Route: IVP; Site: right antecubital; fu 21:15 Follow up: Response: Pain is decreased fu Disposition: 03/29 12:08 Co-signature as Attending Physician, Kameron Harp MD I agree with the assessment and kdr plan of care. Disposition Summary: 03/28/21 21:09 Discharge Ordered Location: Home kb Condition: Stable kb Diagnosis - Other cholelithiasis without obstruction kb - Other ovarian cysts kb Followup: kb - With: Emergency Department - When: As needed - Reason: Worsening of condition Followup: kb - With: Private Physician - When: 2 - 3 days - Reason: Recheck today's complaints, Continuance of care, Re-evaluation by your physician Discharge Instructions: - Discharge Summary Sheet kb - Cholelithiasis, [id number] kb - Ovarian Cyst, [id number] kb Forms: - Medication Reconciliation Form kb - Thank You Letter kb - Antibiotic Education kb - Prescription Opioid Use kb Prescriptions: - Zofran 4 mg Oral Tablet - take 1 tablet by ORAL route every 6 hours As needed; 20 tablet; Refills: 0, kb Product Selection Permitted - dicyclomine 20 mg Oral Tablet - take 1 tablet by ORAL route 4 times per day As needed; 20 tablet; Refills: 0, kb Product Selection Permitted Signatures: Dispatcher [employer] Lay Cali, Kameron Vaz MD MD kdr Wise, Tara RN RN tw2 Abner Maxwell RN Piper Ybarra RN RN ll1
[2021-03-28 22:21] VITALS: TEMP 97.9; O2SAT 100
[2021-03-28 22:24] VITALS: BP 102/62
== END 2021-03-28 21:50 | disposition home or self-care (01) ==
LOC: ER 17:23
DX: K80.80 Other cholelithiasis without obstruction (principal); N83.299 Other ovarian cyst, unspecified side
CPT/HCPCS: 36415; 74177; 80048; 80076; 81003; 81025; 83690; 85025; 96374; 96375; 99284; J2405; J7030; Q9967

== ENCOUNTER 2022-08-03 21:26 | Emergency (ER) | payer SELFPAY ==
--- OUTSIDE RECORDS SUMMARY | 2022-08-03 21:33 | XMS REPORT | Continuity of Care Document ---
:2000 Author Organization [facility] t Address [address] [place] [address] Care Team Providers Name Role Phone Chasidy Bolaños MD Primary Care Physician LEEROY DENG Attending Clinician Unavailable YVONNE SIDDIQI Attending Clinician Unavailable Yvonne Rodriguez Attending Clinician HUY CUELLAR Attending Clinician Unavailable Jennifer Belcher LMSW Attending Clinician Unavailable Broderick Melton DO Attending Clinician ITZEL CHAUDHARY Attending Clinician Unavailable KRISSY GREEN Attending Clinician Unavailable Itzel Chaudhary PA-C Attending Clinician 1, [facility] Attending Clinician Unavailable Chasiyd Bolaños MD Attending Clinician Doctor Unassigned, [place] Attending Clinician Unavailable Chasidy Bolaños MD Admitting Clinician Payers Payer Name Policy Type Policy Number Effective Date Expiration Date Leno trammell [facility] KRYSTIN [id number] 2018 00:00:00 Problems Condition Condition Condition Status Onset Resolution Last Treating Co mments Source Name Details Category Date Date Treatment Clinician Date Nexplanon Nexplanon Disease Active 2018-09 Uni vers insertion insertion 2-16 ity of 00:00: [place] [facility] Nexplanon Nexplanon Disease Active 2018-[address] 2-16 ity of 00:00: [place] [address] [facility] [place] Encounter Encounter Disease Active 2018-09 Uni vers for female for female 2-16 it y of 00:00: [place] control control [facility] Anemia, Anemia, Disease Active 2018-09 Univers antepartum antepartum 1-12 it y of , third , third 00:00: [place] trimester trimester 00 [facility] Obesity Obesity Disease Active Univers (BMI (BMI 4-15 ity of 30-39.9) 30-39.9) 00:00: [place] [facility] History of History of Disease Active U ajit depression depression 4-15 it y of 00:00: [place] [address] [facility] [place] History of History of Disease Active 2018- U tariqers anxiety anxiety 4-15 ity of 00:00: [address] Allergies, Adverse Reactions, Alerts Allergy Allergy Status Severity Reaction(s) Onset Inactive Treating Comm ents Source Name Type Date Date Clinician NO KNOWN Drug Active Univers ALLERGIE Class ity of S [facility] Social History Social Habit Start Date Stop Date Quantity Comments Source ASSERTION 2018-11-14 University of 00:00:00 [facility] History of Cigarette Smoker Universi ty of tobacco use [facility] Exposure to 2022-01-06 2022-01-16 Unable to assess Univers ity of SARS-CoV-2 00:00:00 20:33:00 [facility] (event) [place] Alcohol intake 2022-01-16 2022-01-16 Current University of 00:00:00 00:00:00 non-drinker of [facility] alcohol (finding) Branch Tobacco Comment 2019-01-04 2019-01-04 fiance smokes Univer sity of 00:00:00 00:00:00 outside [facility] Tobacco use and 2015-04-13 2015-04-13 Never used Universit y of exposure 00:00:00 00:00:00 [facility] Sex Assigned At [birth year] Universit y of 00:00:00 00:00:00 [facility] Smoking Status Start Date Stop Date Source Never smoker [facility] acute [facility] Medications Ordered Filled Start Stop Current Ordering Indication Dosage Frequency Signature Comments Components Source Medication Medication Date Date Medication? Clinician (SIG) Name Name ondansetron No 4mg 4 mg, Slow Univers (ZOFRAN -01-17 IV Push, ity of (PF)) 04:00: 03:11 ONCE, 1 [place] injection 4 00 :00 dose, On Medi moiz mg Wed Branch 01/16/22 at 2300, ABHAY NaCl 0.9% No 1000mL at 999 Uni vers (NS) bolus 01-17- mL/hr, ity of infusion 04:00: 03:52 1,000 mL, [place] as 1,000 mL 00 :00 IV Medical Infusion, Branch ONCE, 1 dose, On 01/16/22 at 2300, ABHAY ondansetron 0 Yes [id number] 4mg Take 1 Univers 4 mg 4-27 tablet by ity of disintegrat 00:00: mouth [place] ing tablet 00 every 8 Medica l (eight) Branch hours as needed for Nausea and Vomiting (N/V). azithromyci 2020-0 Yes [id number] 250mg Take 1 Univers n 250 mg 3-28 tablet by ity of tablet 00:00: mouth [place] 00 daily. Medical Take 500 Branch mg day 1, then 250 mg days 2 to 5. azithromyci 2020-0 Yes [id number] 250mg Take 1 Univers n 250 mg 3-28 tablet by ity of tablet 00:00: mouth [place] 00 daily. Medical Take 500 Branch mg day 1, then 250 mg days 2 to 5. azithromyci 2020-0 Yes [id number] 250mg Take 1 Univers n 250 mg 3-28 tablet by ity of tablet 00:00: mouth [place] 00 daily. Medical Take 500 Branch mg day 1, then 250 mg days 2 to 5. Nitrofurant 2019- No [id number] 100mg Take 1 Univers oin&Nit. 05-04- capsule by ity of Macrocryst 00:00: 04:59 mouth 2 [place] as 100 mg 00 :00 (two) Medical capsule times Branch daily for 7 days. metroNIDAZO Yes [id number] 500mg Take 1 Univers LE 500 mg 8-09 tablet by ity o f tablet 00:00: mouth [place] 00 every 12 Medical (twelve) Branch hours. metroNIDAZO Yes [id number] 500mg Take 1 Univers LE 500 mg 8-09 tablet by ity o f tablet 00:00: mouth [place] 00 every 12 Medical (twelve) Branch hours. metroNIDAZO Yes [id number] 500mg Take 1 Univers LE 500 mg 8-09 tablet by ity o f tablet 00:00: mouth [place] 00 every 12 Medical (twelve) Branch hours. metroNIDAZO 2019- No [id number] 500mg Take 1 Univers LE 500 mg 8- tablet by ity of tablet 00:00: 00:00 mouth [place] 00 :00 every 12 Medical (twelve) Branch hours. fluconazole Yes [id number] 200mg Take 1 Univers (DIFLUCAN) 8-08 tablet by ity of 200 mg 00:00: mouth [place] tablet 00 daily. Medical Branch fluconazole Yes [id number] 200mg Take 1 Univers (DIFLUCAN) 8-08 tablet by ity of 200 mg 00:00: mouth [place] tablet 00 daily. Medical Branch fluconazole Yes [id number] 200mg Take 1 Univers (DIFLUCAN) 8-08 tablet by ity of 200 mg 00:00: mouth [place] tablet 00 daily. Medical Branch fluconazole Yes [id number] 200mg Take 1 Univers (DIFLUCAN) 8-08 tablet by ity of 200 mg 00:00: mouth [place] tablet 00 daily. Medical Branch fluconazole 2019- No [id number] 200mg Take 1 Univers (DIFLUCAN) 8-08 -13 tablet by ity of 200 mg 00:00: 00:00 mouth [place] tablet 00 :00 daily. Medical Branch [id number], 2018-0 Yes [id number] Take 1 Univers carb,glu-FA 4-15 9106 TAB-CAP/M2 it y of -dss-dha 00:00: by mouth [place] (CITRANATAL 00 daily. Medica l DHA, ALGAL Branch OIL,) 27 mg iron-1 mg -50 mg-250 mg Cmpk [id number], 2019-0 Yes [id number] Take 1 Univers carb,glu-FA 4-15 9106 TAB-CAP/M2 it y of -dss-dha 00:00: by mouth [place] (CITRANATAL 00 daily. Medica l DHA, ALGAL Branch OIL,) 27 mg iron-1 mg -50 mg-250 mg Cmpk [id number], 2018-0 Yes [id number] Take 1 Univers carb,glu-FA 4-15 9106 TAB-CAP/M2 it y of -dss-dha 00:00: by mouth [place] (CITRANATAL 00 daily. Medica l DHA, ALGAL Branch OIL,) 27 mg iron-1 mg -50 mg-250 mg Cmpk [id number], 2018-0 Yes [id number] Take 1 Univers carb,glu-FA 4-15 9106 TAB-CAP/M2 it y of -dss-dha 00:00: by mouth [place] (CITRANATAL 00 daily. Medica l DHA, ALGAL Branch OIL,) 27 mg iron-1 mg -50 mg-250 mg Cmpk [id number], 2018-0 Yes [id number] Take 1 Univers carb,glu-FA 4-15 9106 TAB-CAP/M2 it y of -dss-dha 00:00: by mouth [place] (CITRANATAL 00 daily. Medica l DHA, ALGAL Branch OIL,) 27 mg iron-1 mg -50 mg-250 mg Cmpk [id number], 2018-0 Yes [id number] Take 1 Univers carb,glu-FA 4-15 9106 TAB-CAP/M2 it y of -dss-dha 00:00: by mouth [place] (CITRANATAL 00 daily. Medica l DHA, ALGAL Branch OIL,) 27 mg iron-1 mg -50 mg-250 mg Cmpk [id number], 2018-0 Yes [id number] Take 1 Univers carb,glu-FA 4-15 9106 TAB-CAP/M2 it y of -dss-dha 00:00: by mouth [place] (CITRANATAL 00 daily. Medica l DHA, ALGAL Branch OIL,) 27 mg iron-1 mg -50 mg-250 mg Cmpk [id number], 2018-0 Yes [id number] Take 1 Univers carb,glu-FA 4-15 9106 TAB-CAP/M2 it y of -dss-dha 00:00: by mouth [place] (CITRANATAL 00 daily. Medica l DHA, ALGAL Branch OIL,) 27 mg iron-1 mg -50 mg-250 mg Cmpk [id number], 2019-0 Yes [id number] Take 1 Univers carb,glu-FA 4-15 9106 TAB-CAP/M2 it y of -dss-dha 00:00: by mouth [place] (CITRANATAL 00 daily. Medica l DHA, ALGAL Branch OIL,) 27 mg iron-1 mg -50 mg-250 mg Cmpk [id number], 2018-0 Yes [id number] Take 1 Univers carb,glu-FA 4-15 9106 TAB-CAP/M2 it y of -dss-dha 00:00: by mouth [place] (CITRANATAL 00 daily. Medica l DHA, ALGAL Branch OIL,) 27 mg iron-1 mg -50 mg-250 mg Cmpk [id number], 2018-0 Yes [id number] Take 1 Univers carb,glu-FA 4-15 9106 TAB-CAP/M2 it y of -dss-dha 00:00: by mouth [place] (CITRANATAL 00 daily. Medica l DHA, ALGAL Branch OIL,) 27 mg iron-1 mg -50 mg-250 mg Cmpk [id number], 2018-0 Yes [id number] Take 1 Univers carb,glu-FA 4-15 9106 TAB-CAP/M2 it y of -dss-dha 00:00: by mouth [place] (CITRANATAL 00 daily. Medica l DHA, ALGAL Branch OIL,) 27 mg iron-1 mg -50 mg-250 mg Cmpk [id number], 2018-0 Yes [id number] Take 1 Univers carb,glu-FA 4-15 9106 TAB-CAP/M2 it y of -dss-dha 00:00: by mouth [place] (CITRANATAL 00 daily. Medica l DHA, ALGAL Branch OIL,) 27 mg iron-1 mg -50 mg-250 mg Cmpk Immunizations Ordered Immunization Filled Immunization Date Status Commen ts Source Name Name Influenza Virus 2019-06-29 Completed Universit y of Vaccine Quad .5 mL IM 00:00:00 [place] [facility] 6+ MO Branch Influenza Virus 2019-06-29 Completed Universit y of Vaccine Quad .5 mL IM 00:00:00 [place] [facility] 6+ MO Branch Influenza Virus 2019-06-29 Completed Universit y of Vaccine Quad .5 mL IM 00:00:00 [place] [facility] 6+ MO Branch TDAP (ADACEL) VACCINE 2019-05-27 Completed Uni versity of 00:00:00 [place] [facility] TDAP (ADACEL) VACCINE 2019-05-27 Completed Uni versity of 00:00:00 [place] [facility] TDAP (ADACEL) VACCINE 2019-05-27 Completed Uni versity of 00:00:00 [place] [facility] TDAP (ADACEL) VACCINE 2019-05-27 Completed Uni versity of 00:00:00 [place] [facility] TDAP (ADACEL) VACCINE 2019-04-01 Completed Uni versity of 00:00:00 [place] [facility] TDAP (ADACEL) VACCINE 2019-04-01 Completed Uni versity of 00:00:00 [place] [facility] TDAP (ADACEL) VACCINE 2019-04-01 Completed Uni versity of 00:00:00 [place] [facility] TDAP (ADACEL) VACCINE 2019-04-01 Completed Uni versity of 00:00:00 [place] [facility] TDAP (ADACEL) VACCINE 2019-04-01 Completed Uni versity of 00:00:00 [place] [facility] TDAP (ADACEL) VACCINE 2019-04-01 Completed Uni versity of 00:00:00 [place] [facility] TDAP (ADACEL) VACCINE 2019-04-01 Completed Uni versity of 00:00:00 [place] [facility] TDAP (ADACEL) VACCINE 2019-04-01 Completed Uni versity of 00:00:00 [place] [facility] TDAP (ADACEL) VACCINE 2019-04-01 Completed Uni versity of 00:00:00 [place] [facility] TDAP (ADACEL) VACCINE 2019-04-01 Completed Uni versity of 00:00:00 [place] [facility] TDAP (ADACEL) VACCINE 2019-04-01 Completed Uni versity of 00:00:00 [place] [facility] TDAP (ADACEL) VACCINE 2019-04-01 Completed Uni versity of 00:00:00 [place] [facility] TDAP (ADACEL) VACCINE 2019-04-01 Completed Uni versity of 00:00:00 [place] [facility] TDAP (ADACEL) VACCINE 2019-04-01 Completed Uni versity of 00:00:00 [facility] TDAP (ADACEL) VACCINE 2019-04-01 Completed Uni versity of 00:00:00 [facility] TDAP (ADACEL) VACCINE 2019-04-01 Completed Uni versity of 00:00:00 [facility] Influenza Virus 2019-01-04 Completed Universit y of Vaccine Quad .5 mL IM 00:00:00 [facility] 6+ MO Branch Influenza Virus 2019-01-04 Completed Universit y of Vaccine Quad .5 mL IM 00:00:00 [place] [facility] 6+ MO Branch Influenza Virus 2019-01-04 Completed Universit y of Vaccine Quad .5 mL IM 00:00:00 [place] [facility] 6+ MO Branch Influenza Virus 2019-01-04 Completed Universit y of Vaccine Quad .5 mL IM 00:00:00 [place] [facility] 6+ MO Branch Influenza Virus 2019-01-04 Completed Universit y of Vaccine Quad .5 mL IM 00:00:00 [place] [facility] 6+ MO Branch Influenza Virus 2019-01-04 Completed Universit y of Vaccine Quad .5 mL IM 00:00:00 [place] [facility] 6+ MO Branch Influenza Virus 2019-01-04 Completed Universit y of Vaccine Quad .5 mL IM 00:00:00 [place] [facility] 6+ MO Branch Influenza Virus 2019-01-04 Completed Universit y of Vaccine Quad .5 mL IM 00:00:00 [place] [facility] 6+ MO Branch Influenza Virus 2019-01-04 Completed Universit y of Vaccine Quad .5 mL IM 00:00:00 [place] [facility] 6+ MO Branch Influenza Virus 2019-01-04 Completed Universit y of Vaccine Quad .5 mL IM 00:00:00 [place] [facility] 6+ MO Branch Influenza Virus 2019-01-04 Completed Universit y of Vaccine Quad .5 mL IM 00:00:00 [place] [facility] 6+ MO Branch Influenza Virus 2019-01-04 Completed Universit y of Vaccine Quad .5 mL IM 00:00:00 [place] [facility] 6+ MO Branch Influenza Virus 2019-01-04 Completed Universit y of Vaccine Quad .5 mL IM 00:00:00 [place] [facility] 6+ MO Branch Influenza Virus 2019-01-04 Completed Universit y of Vaccine Quad .5 mL IM 00:00:00 [place] [facility] 6+ MO Branch Influenza Virus 2019-01-04 Completed Universit y of Vaccine Quad .5 mL IM 00:00:00 [place] [facility] 6+ MO Branch Influenza Virus 2019-01-04 Completed Universit y of Vaccine Quad .5 mL IM 00:00:00 [place] [facility] 6+ MO Branch HPV 2015-04-13 Completed University of 00:00:00 [facility] Meningococcal 2015-04-13 Completed University of Polysaccharide 00:00:00 [place] [facility] (groups A, C, Y and Branc h W-135) conjugate vaccine (MCV4P) TDAP (ADACEL) VACCINE 2015-04-13 Completed Uni versity of 00:00:00 [facility] HPV 2015-04-13 Completed University of 00:00:00 [facility] Meningococcal 2015-04-13 Completed University of Polysaccharide 00:00:00 [place] [facility] (groups A, C, Y and Branc h W-135) conjugate vaccine (MCV4P) TDAP (ADACEL) VACCINE 2015-04-13 Completed Uni versity of 00:00:00 [facility] HPV 2015-04-13 Completed University of 00:00:00 [facility] Meningococcal 2015-04-13 Completed University of Polysaccharide 00:00:00 [place] [facility] (groups A, C, Y and Branc h W-135) conjugate vaccine (MCV4P) TDAP (ADACEL) VACCINE 2015-04-13 Completed Uni versity of 00:00:00 [facility] HPV 2015-04-13 Completed University of 00:00:00 [facility] Meningococcal 2015-04-13 Completed University of Polysaccharide 00:00:00 [place] [facility] (groups A, C, Y and Branc h W-135) conjugate vaccine (MCV4P) TDAP (ADACEL) VACCINE 2015-04-13 Completed Uni versity of 00:00:00 [facility] HPV 2015-04-13 Completed University of 00:00:00 [facility] Meningococcal 2015-04-13 Completed University of Polysaccharide 00:00:00 [place] [facility]i [facility] (groups A, C, Y and Branc h W-135) conjugate vaccine (MCV4P) TDAP (ADACEL) VACCINE 2015-04-13 Completed Uni versity of 00:00:00 [facility] HPV 2015-04-13 Completed University of 00:00:00 [facility] Meningococcal 2015-04-13 Completed University of Polysaccharide 00:00:00 [place] Medi moiz (groups A, C, Y and Branc h W-135) conjugate vaccine (MCV4P) TDAP (ADACEL) VACCINE 2015-04-13 Completed Uni versity of 00:00:00 [facility] HPV 2015-04-13 Completed University of 00:00:00 [facility] Meningococcal 2015-04-13 Completed University of Polysaccharide 00:00:00 [place] Medi moiz (groups A, C, Y and Branc h W-135) conjugate vaccine (MCV4P) TDAP (ADACEL) VACCINE 2015-04-13 Completed Uni versity of 00:00:00 [facility] HPV 2015-04-13 Completed University of 00:00:00 [facility] Meningococcal 2015-04-13 Completed University of Polysaccharide 00:00:00 [place] [facility] (groups A, C, Y and Branc h W-135) conjugate vaccine (MCV4P) TDAP (ADACEL) VACCINE 2015-04-13 Completed Uni versity of 00:00:00 [facility] HPV 2015-04-13 Completed University of 00:00:00 [facility] Meningococcal 2015-04-13 Completed University of Polysaccharide 00:00:00 [place] [facility] (groups A, C, Y and Branc h W-135) conjugate vaccine (MCV4P) TDAP (ADACEL) VACCINE 2015-04-13 Completed Uni versity of 00:00:00 [facility] HPV 2015-04-13 Completed University of 00:00:00 [facility] Meningococcal 2015-04-13 Completed University of Polysaccharide 00:00:00 [place] [facility] (groups A, C, Y and Branc h W-135) conjugate vaccine (MCV4P) TDAP (ADACEL) VACCINE 2015-04-13 Completed Uni versity of 00:00:00 [facility] HPV 2015-04-13 Completed University of 00:00:00 [facility] Meningococcal 2015-04-13 Completed University of Polysaccharide 00:00:00 [place] [facility] (groups A, C, Y and Branc h W-135) conjugate vaccine (MCV4P) HPV 2015-04-13 Completed University of 00:00:00 [facility] Meningococcal 2015-04-13 Completed University of Polysaccharide 00:00:00 [place] [facility] (groups A, C, Y and Branc h W-135) conjugate vaccine (MCV4P) TDAP (ADACEL) VACCINE 2015-04-13 Completed Uni versity of 00:00:00 [facility] TDAP (ADACEL) VACCINE 2015-04-13 Completed Uni versity of 00:00:00 [facility] HPV 2015-04-13 Completed University of 00:00:00 [facility] Meningococcal 2015-04-13 Completed University of Polysaccharide 00:00:00 [place] [facility] (groups A, C, Y and Branc h W-135) conjugate vaccine (MCV4P) TDAP (ADACEL) VACCINE 2015-04-13 Completed Uni versity of 00:00:00 [facility] HPV 2015-04-13 Completed University of 00:00:00 [facility] Meningococcal 2015-04-13 Completed University of Polysaccharide 00:00:00 [place] [facility] (groups A, C, Y and Branc h W-135) conjugate vaccine (MCV4P) TDAP (ADACEL) VACCINE 2015-04-13 Completed Uni versity of 00:00:00 [facility] HPV 2015-04-13 Completed University of 00:00:00 [facility] Meningococcal 2015-04-13 Completed University of Polysaccharide 00:00:00 [place] [facility] (groups A, C, Y and Branc h W-135) conjugate vaccine (MCV4P) TDAP (ADACEL) VACCINE 2015-04-13 Completed Uni versity of 00:00:00 [facility] HPV 2015-04-13 Completed University of 00:00:00 [facility] Meningococcal 2015-04-13 Completed University of Polysaccharide 00:00:00 [place] [facility] (groups A, C, Y and Branc h W-135) conjugate vaccine (MCV4P) TDAP (ADACEL) VACCINE 2015-04-13 Completed Uni versity of 00:00:00 [facility] HPV 2012-06-29 Completed University of 00:00:00 [facility] HPV 2012-06-29 Completed University of 00:00:00 [facility] HPV 2012-06-29 Completed University of 00:00:00 [facility] Meningococcal 2009-12-12 Completed University of Polysaccharide 00:00:00 [place] [facility] (groups A, C, Y and Branc h W-135) conjugate vaccine (MCV4P) Varicella 2009-12-12 Completed University of (varivax)(chicken 00:00:00 [place] [facility] pox) Branch Meningococcal 2009-12-12 Completed University of Polysaccharide 00:00:00 [place] [facility] (groups A, C, Y and Branc h W-135) conjugate vaccine (MCV4P) Varicella 2009-12-12 Completed University of (varivax)(chicken 00:00:00 [place] M [facility] pox) Branch Meningococcal 2009-12-12 Completed University of Polysaccharide 00:00:00 [facility] (groups A, C, Y and Branc h W-135) conjugate vaccine (MCV4P) Varicella 2009-12-12 Completed University of (varivax)(chicken 00:00:00 [place] M [facility] pox) Branch HIB 4 Dose Schedule 2002-11-11 Completed Unive rsity of 00:00:00 [facility] Hep B, Adol or Pedi 2002-11-11 Completed Unive rsity of Dosage 00:00:00 [facility] MMR 2002-11-11 Completed University of 00:00:00 [facility] Polio (IPV/OPV) 2002-11-11 Completed Universit y of 00:00:00 [facility] Varicella 2002-11-11 Completed University of (varivax)(chicken 00:00:00 [place] [facility] pox) Branch DTAP 2002-11-11 Completed University of 00:00:00 [facility] Hep B, Adol or Pedi 2002-11-11 Completed Unive rsity of Dosage 00:00:00 [facility] HIB 4 Dose Schedule 2002-11-11 Completed Unive rsity of 00:00:00 [facility] Polio (IPV/OPV) 2002-11-11 Completed Universit y of 00:00:00 [facility] MMR 2002-11-11 Completed University of 00:00:00 [facility] Varicella 2002-11-11 Completed University of (varivax)(chicken 00:00:00 [place] [facility] pox) Branch DTAP 2002-11-11 Completed University of 00:00:00 [facility] HIB 4 Dose Schedule 2002-11-11 Completed Unive rsity of 00:00:00 [facility] Hep B, Adol or Pedi 2002-11-11 Completed Unive rsity of Dosage 00:00:00 [facility] MMR 2002-11-11 Completed University of 00:00:00 [facility] Polio (IPV/OPV) 2002-11-11 Completed Universit y of 00:00:00 [facility] Varicella 2002-11-11 Completed University of (varivax)(chicken 00:00:00 [facility] edical pox) Branch DTAP 2002-11-11 Completed University of 00:00:00 [facility] Hep B, Adol or Pedi 2002-11-11 Completed Unive rsity of Dosage 00:00:00 [facility] HIB 4 Dose Schedule 2002-11-11 Completed Unive rsity of 00:00:00 [facility] Polio (IPV/OPV) 2002-11-11 Completed Universit y of 00:00:00 [facility] MMR 2002-11-11 Completed University of 00:00:00 [facility] Varicella 2002-11-11 Completed University of (varivax)(chicken 00:00:00 [place] [facility] pox) Branch DTAP 2002-11-11 Completed University of 00:00:00 [facility] HIB 4 Dose Schedule 2002-11-11 Completed Unive rsity of 00:00:00 [facility] Hep B, Adol or Pedi 2002-11-11 Completed Unive rsity of Dosage 00:00:00 [facility] MMR 2002-11-11 Completed University of 00:00:00 [facility] Polio (IPV/OPV) 2002-11-11 Completed Universit y of 00:00:00 [facility] Varicella 2002-11-11 Completed University of (varivax)(chicken 00:00:00 [place] [facility] pox) Branch DTAP 2002-11-11 Completed University of 00:00:00 [facility] Hep B, Adol or Pedi 2002-11-11 Completed Unive rsity of Dosage 00:00:00 [facility] HIB 4 Dose Schedule 2002-11-11 Completed Unive rsity of 00:00:00 [facility] Polio (IPV/OPV) 2002-11-11 Completed Universit y of 00:00:00 [facility] MMR 2002-11-11 Completed University of 00:00:00 [facility] Varicella 2002-11-11 Completed University of (varivax)(chicken 00:00:00 [place] [facility] pox) Branch DTAP 2002-11-11 Completed University of 00:00:00 [facility] HIB 4 Dose Schedule 2002-11-11 Completed Unive rsity of 00:00:00 [facility] Hep B, Adol or Pedi 2002-11-11 Completed Unive rsity of Dosage 00:00:00 [facility] MMR 2002-11-11 Completed University of 00:00:00 [facility] Polio (IPV/OPV) 2002-11-11 Completed Universit y of 00:00:00 [facility] Varicella 2002-11-11 Completed University of (varivax)(chicken 00:00:00 [place] [facility] pox) Branch DTAP 2002-11-11 Completed University of 00:00:00 [facility] Hep B, Adol or Pedi 2002-11-11 Completed Unive rsity of Dosage 00:00:00 [facility] HIB 4 Dose Schedule 2002-11-11 Completed Unive rsity of 00:00:00 [facility] Polio (IPV/OPV) 2002-11-11 Completed Universit y of 00:00:00 [facility] MMR 2002-11-11 Completed University of 00:00:00 [facility] Varicella 2002-11-11 Completed University of (varivax)(chicken 00:00:00 [place] [facility]) [facility] DTAP 2002-11-11 Completed [facility] 00:00:00 [facility] HIB 4 Dose Schedule 2002-11-11 Completed Unive rsity of 00:00:00 [facility] Hep B, Adol or Pedi 2002-11-11 Completed Unive rsity of Dosage 00:00:00 [facility] MMR 2002-11-11 Completed University of 00:00:00 [facility] Polio (IPV/OPV) 2002-11-11 Completed Universit y of 00:00:00 [facility] Varicella 2002-11-11 Completed University of (varivax)(chicken 00:00:00 [place] [facility] DTAP 2002-11-11 Completed University of 00:00:00 [facility] Hep B, Adol or Pedi 2002-11-11 Completed Unive rsity of Dosage 00:00:00 [facility] HIB 4 Dose Schedule 2002-11-11 Completed Unive rsity of 00:00:00 [facility] Polio (IPV/OPV) 2002-11-11 Completed Universit y of 00:00:00 [facility] MMR 2002-11-11 Completed University of 00:00:00 [facility] Varicella 2002-11-11 Completed University of (varivax)(chicken 00:00:00 [place] [facility] DTAP 2002-11-11 Completed University of 00:00:00 [facility] HIB 4 Dose Schedule 2002-11-11 Completed Unive rsity of 00:00:00 [facility] Hep B, Adol or Pedi 2002-11-11 Completed Unive rsity of Dosage 00:00:00 [facility] MMR 2002-11-11 Completed University of 00:00:00 [facility] Polio (IPV/OPV) 2002-11-11 Completed Universit y of 00:00:00 [facility] Varicella 2002-11-11 Completed University of (varivax)(chicken 00:00:00 [place] [facility] DTAP 2002-11-11 Completed [facility] of 00:00:00 [facility] Hep B, Adol or Pedi 2002-11-11 Completed Unive rsity of Dosage 00:00:00 [facility] HIB 4 Dose Schedule 2002-11-11 Completed Unive rsity of 00:00:00 [facility] Polio (IPV/OPV) 2002-11-11 Completed Universit y of 00:00:00 [facility] MMR 2002-11-11 Completed University of 00:00:00 [facility] Varicella 2002-11-11 Completed University of (varivax)(chicken 00:00:00 [place] [facility] DTAP 2002-11-11 Completed University of 00:00:00 [facility] DTAP 2002-11-11 Completed University of 00:00:00 [facility] HIB 4 Dose Schedule 2002-11-11 Completed Unive rsity of 00:00:00 [facility] HIB 4 Dose Schedule 2002-11-11 Completed Unive rsity of 00:00:00 [facility] Hep B, Adol or Pedi 2002-11-11 Completed Unive rsity of Dosage 00:00:00 [facility] MMR 2002-11-11 Completed University of 00:00:00 [facility] Polio (IPV/OPV) 2002-11-11 Completed Universit y of 00:00:00 [facility] Varicella 2002-11-11 Completed University of (varivax)(chicken 00:00:00 [place] [facility] DTAP 2002-11-11 Completed [facility] of 00:00:00 [facility] Hep B, Adol or Pedi 2002-11-11 Completed Unive rsity of Dosage 00:00:00 [facility] HIB 4 Dose Schedule 2002-11-11 Completed Unive rsity of 00:00:00 [facility] Polio (IPV/OPV) 2002-11-11 Completed Universit y of 00:00:00 [facility] MMR 2002-11-11 Completed University of 00:00:00 [facility] Hep B, Adol or Pedi 2002-11-11 Completed Unive rsity of Dosage 00:00:00 [facility] Varicella 2002-11-11 Completed University of (varivax)(chicken 00:00:00 [place] [facility] MMR 2002-11-11 Completed University of 00:00:00 [facility] DTAP 2002-11-11 Completed University of 00:00:00 [facility] HIB 4 Dose Schedule 2002-11-11 Completed Unive rsity of 00:00:00 [facility] Hep B, Adol or Pedi 2002-11-11 Completed Unive rsity of Dosage 00:00:00 [facility] MMR 2002-11-11 Completed University of 00:00:00 [facility] Polio (IPV/OPV) 2002-11-11 Completed Universit y of 00:00:00 [facility] Varicella 2002-11-11 Completed University of (varivax)(chicken 00:00:00 [place] [facility] Polio (IPV/OPV) 2002-11-11 Completed Universit y of 00:00:00 [facility] DTAP 2002-11-11 Completed University of 00:00:00 [facility] Hep B, Adol or Pedi 2002-11-11 Completed Unive rsity of Dosage 00:00:00 [facility] HIB 4 Dose Schedule 2002-11-11 Completed Unive rsity of 00:00:00 [facility] Polio (IPV/OPV) 2002-11-11 Completed Universit y of 00:00:00 [facility] MMR 2002-11-11 Completed University of 00:00:00 [facility] Varicella 2002-11-11 Completed [facility] of (varivax)(chicken 00:00:00 [place] [facility] Varicella 2002-11-11 Completed University of (varivax)(chicken 00:00:00 [place] [facility] DTAP 2002-11-11 Completed [facility] of 00:00:00 [facility] DTAP 2002-11-11 Completed University of 00:00:00 [facility] HIB 4 Dose Schedule 2002-11-11 Completed Unive rsity of 00:00:00 [facility] Hep B, Adol or Pedi 2002-11-11 Completed Unive rsity of Dosage 00:00:00 [facility] MMR 2002-11-11 Completed University of 00:00:00 [facility] Polio (IPV/OPV) 2002-11-11 Completed Universit y of 00:00:00 [facility] Varicella 2002-11-11 Completed University of (varivax)(chicken 00:00:00 [place] [facility] DTAP 2002-11-11 Completed [facility] of 00:00:00 [facility] Hep B, Adol or Pedi 2002-11-11 Completed Unive rsity of Dosage 00:00:00 [facility] HIB 4 Dose Schedule 2002-11-11 Completed Unive rsity of 00:00:00 [facility] Hep B, Adol or Pedi 2002-11-11 Completed Unive rsity of Dosage 00:00:00 [facility] Polio (IPV/OPV) 2002-11-11 Completed Universit y of 00:00:00 [facility] MMR 2002-11-11 Completed University of 00:00:00 [facility] Varicella 2002-11-11 Completed University of (varivax)(chicken 00:00:00 [place] [facility] HIB 4 Dose Schedule 2002-11-11 Completed Unive rsity of 00:00:00 [facility] DTAP 2002-11-11 Completed University of 00:00:00 [facility] HIB 4 Dose Schedule 2002-11-11 Completed Unive rsity of 00:00:00 [facility] Hep B, Adol or Pedi 2002-11-11 Completed Unive rsity of Dosage 00:00:00 [facility] MMR 2002-11-11 Completed University of 00:00:00 [facility] Polio (IPV/OPV) 2002-11-11 Completed Universit y of 00:00:00 [facility] Varicella 2002-11-11 Completed University of (varivax)(chicken 00:00:00 [place] [facility] Polio (IPV/OPV) 2002-11-11 Completed Universit y of 00:00:00 [facility] DTAP 2002-11-11 Completed University of 00:00:00 [facility] Hep B, Adol or Pedi 2002-11-11 Completed Unive rsity of Dosage 00:00:00 [facility] HIB 4 Dose Schedule 2002-11-11 Completed Unive rsity of 00:00:00 [facility] Polio (IPV/OPV) 2002-11-11 Completed Universit y of 00:00:00 [facility] MMR 2002-11-11 Completed University of 00:00:00 [facility] Varicella 2002-11-11 Completed University of (varivax)(chicken 00:00:00 [place] [facility] MMR 2002-11-11 Completed University of 00:00:00 [facility] Varicella 2002-11-11 Completed University of (varivax)(chicken 00:00:00 [place] [facility] DTAP 2002-11-11 Completed University of 00:00:00 [facility] HIB 4 Dose Schedule 2002-11-11 Completed Unive rsity of 00:00:00 [facility] Hep B, Adol or Pedi 2002-11-11 Completed Unive rsity of Dosage 00:00:00 [facility] MMR 2002-11-11 Completed University of 00:00:00 [facility] Polio (IPV/OPV) 2002-11-11 Completed Universit y of 00:00:00 [facility] Varicella 2002-11-11 Completed University of (varivax)(chicken 00:00:00 [place] [facility] DTAP 2002-11-11 Completed [facility] of 00:00:00 [facility] Hep B, Adol or Pedi 2002-11-11 Completed Unive rsity of Dosage 00:00:00 [facility] HIB 4 Dose Schedule 2002-11-11 Completed Unive rsity of 00:00:00 [facility] Polio (IPV/OPV) 2002-11-11 Completed Universit y of 00:00:00 [facility] MMR 2002-11-11 Completed University of 00:00:00 [facility] Varicella 2002-11-11 Completed University of (varivax)(chicken 00:00:00 [place] [facility] DTAP 2002-11-11 Completed University of 00:00:00 [facility] HIB 4 Dose Schedule 2002-11-11 Completed Unive rsity of 00:00:00 [facility] Hep B, Adol or Pedi 2002-11-11 Completed Unive rsity of Dosage 00:00:00 [facility] MMR 2002-11-11 Completed University of 00:00:00 [facility] Polio (IPV/OPV) 2002-11-11 Completed Universit y of 00:00:00 [facility] Varicella 2002-11-11 Completed University of (varivax)(chicken 00:00:00 [place] [facility] DTAP 2002-11-11 Completed University of 00:00:00 [facility] Hep B, Adol or Pedi 2002-11-11 Completed Unive rsity of Dosage 00:00:00 [facility] HIB 4 Dose Schedule 2002-11-11 Completed Unive rsity of 00:00:00 [facility] Polio (IPV/OPV) 2002-11-11 Completed Universit y of 00:00:00 [facility] MMR 2002-11-11 Completed [facility] of 00:00:00 [facility] Varicella 2002-11-11 Completed [facility] of (varivax)(chicken 00:00:00 [place] [facility] DTAP 2002-11-11 Completed University of 00:00:00 [facility] HIB 4 Dose Schedule 2002-11-11 Completed Unive rsity of 00:00:00 [facility] Hep B, Adol or Pedi 2002-11-11 Completed Unive rsity of Dosage 00:00:00 [facility] MMR 2002-11-11 Completed University of 00:00:00 [facility] Polio (IPV/OPV) 2002-11-11 Completed Universit y of 00:00:00 [facility] Varicella 2002-11-11 Completed University of (varivax)(chicken 00:00:00 [place] [facility] DTAP 2002-11-11 Completed [facility] of 00:00:00 [facility] Hep B, Adol or Pedi 2002-11-11 Completed Unive rsity of Dosage 00:00:00 [facility] HIB 4 Dose Schedule 2002-11-11 Completed Unive rsity of 00:00:00 [facility] Polio (IPV/OPV) 2002-11-11 Completed Universit y of 00:00:00 [facility] MMR 2002-11-11 Completed University of 00:00:00 [facility] Varicella 2002-11-11 Completed University of (varivax)(chicken 00:00:00 [place] [facility] DTAP 2002-11-11 Completed University of 00:00:00 [facility] HIB 4 Dose Schedule 2002-11-11 Completed Unive rsity of 00:00:00 [facility] Hep B, Adol or Pedi 2002-11-11 Completed Unive rsity of Dosage 00:00:00 [facility] MMR 2002-11-11 Completed University of 00:00:00 [facility] Polio (IPV/OPV) 2002-11-11 Completed Universit y of 00:00:00 [facility] Varicella 2002-11-11 Completed University of (varivax)(chicken 00:00:00 [place] [facility] DTAP 2002-11-11 Completed [facility] of 00:00:00 [facility] Hep B, Adol or Pedi 2002-11-11 Completed Unive rsity of Dosage 00:00:00 [facility] HIB 4 Dose Schedule 2002-11-11 Completed Unive rsity of 00:00:00 [facility] Polio (IPV/OPV) 2002-11-11 Completed Universit y of 00:00:00 [facility] MMR 2002-11-11 Completed University of 00:00:00 [facility] Varicella 2002-11-11 Completed University of (varivax)(chicken 00:00:00 [place] [facility] DTAP 2002-11-11 Completed [facility] of 00:00:00 [facility] HIB 4 Dose Schedule 2002-11-11 Completed Unive rsity of 00:00:00 [facility] Hep B, Adol or Pedi 2002-11-11 Completed Unive rsity of Dosage 00:00:00 [facility] MMR 2002-11-11 Completed University of 00:00:00 [facility] Polio (IPV/OPV) 2002-11-11 Completed Universit y of 00:00:00 [facility] Varicella 2002-11-11 Completed University of (varivax)(chicken 00:00:00 [place] [facility] DTAP 2002-11-11 Completed University of 00:00:00 [facility] Hep B, Adol or Pedi 2002-11-11 Completed Unive rsity of Dosage 00:00:00 [facility] HIB 4 Dose Schedule 2002-11-11 Completed Unive rsity of 00:00:00 [facility] Polio (IPV/OPV) 2002-11-11 Completed Universit y of 00:00:00 [facility] MMR 2002-11-11 Completed University of 00:00:00 [facility] Varicella 2002-11-11 Completed [facility] of (varivax)(chicken 00:00:00 [place] [facility] DTAP 2002-11-11 Completed [facility] of 00:00:00 [facility] Vital Signs Vital Name Observation Time Observation Value Comments Source Systolic blood 2022-01-17 03:00:00 119 mm[Hg] Univer sity of pressure [facility] Diastolic blood 2022-01-17 03:00:00 62 mm[Hg] Unive rsity of pressure [facility] Heart rate 2022-01-17 03:00:00 68 /min Universi ty of [facility] Respiratory rate 2022-01-17 03:00:00 16 /[facility] in 2022-01-17 03:00:00 100 /min [facility] Arterial blood by [facility] Pulse oximetry Branch Body temperature 2022-01-17 02:03:00 37.28 Roselia Univ ersity of [facility] Body height 2022-01-17 02:03:00 165.1 cm Universi ty of [facility] Body weight 2022-01-17 02:03:00 90.719 kg Universi ty of [facility] BMI 2022-01-17 02:03:00 33.28 kg/m2 Universi ty of [facility] Systolic blood 2019-05-27 20:39:00 107 mm[Hg] Univer sity of pressure [facility] Diastolic blood 2019-05-27 20:39:00 63 mm[Hg] Unive rsity of pressure [facility] Heart rate 2019-05-27 20:39:00 77 /min Universi ty of [facility] Body temperature 2019-05-27 20:39:00 36.94 Roselia Univ ersity of [facility] Respiratory rate 2019-05-27 20:39:00 18 /min Univ ersity of [facility] Body height 2019-05-27 20:39:00 165.1 cm Universi ty of [facility] Body weight 2019-05-27 20:39:00 98.431 kg Universi ty of [facility] BMI 2019-05-27 20:39:00 36.11 kg/m2 [facility] Systolic blood 2019-05-27 20:39:00 107 mm[Hg] Univer sity of pressure [facility] Diastolic blood 2019-05-27 20:39:00 63 mm[Hg] Unive rsity of pressure [facility] Heart rate 2019-05-27 20:39:00 77 /min [facility] Body temperature 2019-05-27 20:39:00 36.94 Roselia Univ ersity of [facility] Respiratory rate 2019-05-27 20:39:00 18 /min Univ ersity of [facility] Body height 2019-05-27 20:39:00 165.1 cm [facility] Body weight 2019-05-27 20:39:00 98.431 kg [facility] BMI 2019-05-27 20:39:00 36.11 kg/m2 [facility] Systolic blood 2019-05-17 21:39:00 114 mm[Hg] Univer sity of pressure [facility] Diastolic blood 2019-05-17 21:39:00 71 mm[Hg] Unive rsity of pressure [facility] Heart rate 2019-05-17 21:39:00 103 /min [facility] Body temperature 2019-05-17 21:39:00 37.11 Roselia Univ ersity of [place] [facility] Respiratory rate 2019-05-17 21:39:00 18 /min Univ ersity of [facility] Body height 2019-05-17 21:39:00 165.1 cm [facility] Body weight 2019-05-17 21:39:00 100.154 kg [facility] BMI 2019-05-17 21:39:00 36.74 kg/m2 [facility] Systolic blood 2019-05-17 21:39:00 114 mm[Hg] Univer sity of pressure [facility] Diastolic blood 2019-05-17 21:39:00 71 mm[Hg] Unive rsity of pressure [facility] Heart rate 2019-05-17 21:39:00 103 /min [facility] Body temperature 2019-05-17 21:39:00 37.11 Roselia Univ ersity of [place] [facility] Respiratory rate 2019-05-17 21:39:00 18 /min Univ ersity of [facility] Body height 2019-05-17 21:39:00 165.1 cm [facility] [place] [facility] [place] Body weight 2019-05-17 21:39:00 100.154 kg Universi ty of [facility] BMI 2019-05-17 21:39:00 36.74 kg/m2 Universi ty of [facility] Systolic blood 2019-05-04 18:09:00 135 mm[Hg] Univer sity of pressure [facility] Diastolic blood 2019-05-04 18:09:00 68 mm[Hg] Unive rsity of pressure [facility] Heart rate 2019-05-04 18:09:00 96 /min Universi ty of [facility] Body temperature 2019-05-04 18:09:00 36.78 Roselia [facility] Respiratory rate 2019-05-04 18:09:00 22 /min [facility] Oxygen saturation in 2019-05-04 18:09:00 100 /min [facility] Arterial blood by [facility] Pulse oximetry Branch Systolic blood 2019-04-29 21:00:00 127 mm[Hg] Univer sity of [facility] Diastolic blood 2019-04-29 21:00:00 68 mm[Hg] Unive rsity of [facility] Heart rate 2019-04-29 21:00:00 87 /min Universi ty of [facility] Body temperature 2019-04-29 21:00:00 36.39 Roselia [facility] Respiratory rate 2019-04-29 21:00:00 20 /min [facility] ersity of [facility] Body height 2019-04-29 21:00:00 165.1 cm [facility] [place] [facility] [place] Body weight 2019-04-29 21:00:00 98.431 kg Universi ty of [facility] BMI 2019-04-29 21:00:00 36.11 kg/m2 Universi ty of [facility] Procedures Procedure Date / Time Performing Clinician Source Performed LIPASE 2022-01-17 03:09:00 Yvonne Siddiqi [facility] COMP. METABOLIC PANEL 2022-01-17 03:09:00 [id number] CBC WITH DIFF 2022-01-17 03:09:00 Yvonne Siddiqi [facility] POCT TEST 2022-01-17 02:14:00 Abraham Weiner [facility] URINALYSIS 2022-01-17 02:10:00 Abraham Weiner [facility] NOTICE OF PRIVACY 2022-01-17 01:36:28 Doctor Unassigned, No Univ [facility] CONSENT/REFUSAL FOR 2022-01-17 01:36:18 [facility] TDAP (ADACEL) 2019-05-27 20:41:37 Neena [facility] IMMUNIZATION [facility] US ABDOMEN LIMITED 2019-05-17 22:45:16 Neena [facility] ASSIGNMENT OF BENEFITS 2019-05-17 22:12:10 Doctor Unassigned, No [facility] URINALYSIS 2019-05-04 18:55:00 Chasidy Bolaños [facility] ADC CLC OR LCC ONLY - 2019-05-04 18:55:[address] [facility] ADC ONLY - FERN TEST 2019-05-04 18:54:00 Chasidy Bolaños [facility] CONSENT/REFUSAL FOR 2019-05-04 17:47:16 Doctor Unassigned, No [facility] [place] [facility] Encounters Start End Encounter Admission Attending Care Care Encounter Source Date/Time Date/Time Type Type Clinicians Facility Department ID 2022-08-02 Emergency [facility] [id number] [facility] - 05:16:57 [facility] 2021-07-08 Outpatient [facility] [id number] [facility] 14:21:14 [id number] [facility] 2022-08-02 2022-08-02 Emergency E LEEROY [facility] [id number] [facility] 04:26:00 11:34:00 2022-01-16 2022-01-17 [facility] [id number] Univers 21:05:00 00:11:[address] [facility] 2022-01-16 2022-01-17 Emergency [facility] [id number] Univers 21:05:00 00:11:00 Yvonne POPE [id number] i [id number] [id number] [address] 2021-04-19 2021-04-19 Outpatient R POLO, [facility] [id number] Univers 13:15:00 13:15:00 HUY franco o f [facility] 2021-02-06 2021-02-06 Case Summer Belcher [id number] 00:00:00 00:00:00 Management Jennifer Harrell [id number] [place] [id number] [facility] 2021-02-06 2021-02-06 Summer Recinos [id number] [facility] 00:00:00 00:00:00 Management Jennifer Harrell [id number] [id number] [id number] [address] 2020-12-12 2020-12-12 [facility] [id number] 00:00:00 00:00:00 Outreach [place] [facility] [id number] [place] [facility] [id number] PAVILLION [id number] [facility] 2020-12-12 2020-12-12 [facility] [id number] Univers 00:00:00 00:00:00 Outreach [place] PRIMARY [id number] i ty [id number] [id number] Ok dical [facility] Branch 2020-02-28 2020-02-28 Outpatient R NEENA, [facility] [id number] Univers 15:00:00 15:00:00 ITZEL franco [facility] 2019-12-18 2019-12-18 Outpatient R NORMA [facility] [id number] Univers 17:30:00 17:30:00 KRISSY franco [facility] 2019-11-18 2019-11-18 Outpatient R NEENA [facility] [id number] Univers 14:30:00 14:30:00 ITZEL salvador [facility] 2019-05-27 2019-05-27 [facility] [id number] 14:41:30 15:54:53 Itzel Pope [id number] Visit [place] [id number] Professio [id number] [address] 2019-05-27 2019-05-27 [facility] [id number] Univers 14:41:30 15:54:53 Itzel Pope [id number] ity of Visit [place] [id number] [facility] Professio [id number] Ok dical [address] 2019-05-17 2019-05-17 [facility] [id number] Univers 17:15:00 23:59:00 Encounter Itzel Pope [id number] ity of [place] [id number] [facility] [id number] [facility] [facility] [address] 2019-05-17 2019-05-17 Sales Center Associate 1, Adc Lab [facility] 1.2.840.114 [id number] Univers 17:21:30 17:36:30 Visit Chasidy Bolaños 350.1.13.10 ity of [place] [phone] [facility] [address] 2019-05-17 2019-05-17 [facility] [id number] 15:55:01 16:56:25 Visit Itzel Pope 350.1.13.10 [place] 4.2.7.2.686 Professio [phone] [address] 2019-05-17 2019-05-17 [facility] [id number] Univers 15:55:01 16:56:25 Visit Itzel Pope 350.1.13.10 i [place] [phone] [address] 2019-05-17 2019-05-17 Orders Doctor MAY 1.2.840.114 [id number] Univers 00:00:00 00:00:00 Only Unassigned, ZACKERY 350.1.13.10 ity of [place] [facility] 4.2.7.2.686 Juan as [phone] [facility] [address] 2019-05-05 2019-05-05 Telephone [facility] 1.2.840.114 [id number] Univers 00:00:00 00:00:00 Itzel Pope 350.1.13.10 i ty [place] [phone] [address] 2019-05-04 2019-05-04 Sales Center Associate 1, Adc Lab [facility] 1.2.840.114 [id number] Univers 15:07:01 15:22:01 Visit Chasidy Bolaños 350.1.13.10 ity of [place] [phone] [facility] [address] 2019-05-04 2019-05-04 Hospital Chasidy Bolaños [facility] 1.2.840.114 [id number] Univers 12:48:00 14:57:00 Encounter Pedro Pope 350.1.13.10 ity of [place] [phone] [facility] [address] 2019-05-04 2019-05-04 Telephone [facility] 1.2.840.114 [id number] Univers 00:00:00 00:00:00 Itzel Pope 350.1.13.10 i ty of [place] [phone] [address] 2019-05-04 2019-05-04 Orders Doctor MAY 1.2.840.114 [id number] Univers 00:00:00 00:00:00 Only Unassigned, ZACKERY 350.1.13.10 ity of [place] [facility] 4.2.7.2.686 Juan as [phone] [facility] moiz [address] 2019-04-30 2019-04-30 Case Neena [facility] 1.2.386.080 [id number] Univers 00:00:00 00:00:00 Management Itzel [employer]King 350.1.13.10 ity of Surgical 4.2.7.2.686 Juan as Specialti [phone] Me dical es [address]ella 2019-04-29 2019-04-29 Routine Bolaños, Chasidy [facility] [id number] Univers 15:40:17 16:18:51 [facility] 350.1.13.10 ity of [place] [phone] Me dical nal [address] Results Test Description Test Time Test Comments Results Result Comments Source COMP. METABOLIC PANEL (32676) 2022-01-17 03:31:19 Test Item Value Reference Range Interpretation Comme nts NA (test code = 0623233317) 139 mmol/L 135-145 K (test code = 6614678444) 4.2 mmol/L 3.5-5.0 CL (test code = 0539427550) 105 mmol/L 98-108 CO2 TOTAL (test code = 1708031699) 23 mmol/L 23-31 AGAP (test code = 0994874013) 2-16 BUN (test code = 6095155786) 9 mg/dL 7-23 GLUCOSE (test code = 9323895891) 94 mg/dL 70-110 CREATININE (test code = 0.61 mg/dL 0.50-1.04 2621705914) TOTAL BILI (test code = 0.9 mg/dL 0.1-1.6 3446632548) CALCIUM (test code = 5280851437) 9.4 mg/dL 8.6-10.6 T PROTEIN (test code = 9461074280) 8.3 g/dL 6.3-8.2 H ALBUMIN (test code = 4950076003) 4.7 g/dL 3.5-5.0 ALK PHOS (test code = 6281548825) 87 U/L 34-122 ALTv (test code = 1742-6) 11 U/L 5-35 AST(SGOT) (test code = 7411054363) 19 U/L 13-40 eGFR (test code = 6907585805) mL/min/1.73m2 TIERRA (test code = TIERRA) Association of Glomerular Filtration Rate (GFR) and Staging of Kidney Disease* + +-------- + ------+| GFR (mL/min/1.73 m2) ?| With Kidney Damage ?| ?Without Kidney Damage+ +-- + +| ?>90 ?| ?Stage one ?| ? Normal ?+ +------- + -------+| ?60-89 ?| ?Stage two ?| ? Decreased GFR ? + +-------- + ------+| ?30-59 ?| ?Stage three ?| ? Stage three ? + +-------- + ------+| ?15-29 ?| ?Stage four ? | ? Stage four ?+ +------- + -------+| ?<15 (or dialysis) ? ?| ?Stage five ? | ? Stage five ?+ +------- + -------+ *Each stage assumes the associated GFR level has been in effect for at least three months. ?Stages 1 to 5, with or without kidney disease, indicate chronic kidney disease. Notes: Determination of stages one and two (with eGFR >59mL/min/1.73 m2) requires estimation of kidney damage for at least three months as defined by structural or functional abnormalities of the kidney, manifested by either:Pathological abnormalities or Markers of kidney damage (including abnormalities in the composition of the blood or urine or abnormalities in imaging tests). Lab Interpretation (test code = Abnormal 87267-6) [facility]31[facility]19 Test Item Value Reference Range Interpretation Comments LIPASE (test code = 6093813073) 68 U/L 0-220 Lab Interpretation (test code = Normal 67959-9) [facility] WITH [id number] 03:28:58 Test Item Value Reference Range Interpretation Comments WBC (test code = See_Comment [Automated 2190-2) message] The sy stem which generated this result transmitted reference range : 4.30 - 11.10 10*3/?L. The reference range was not used to interpret this result as normal/abnormal . RBC (test code = See_Comment [Automated 789-8) message] The sy stem which generated this result transmitted reference range : 3.93 - 5.25 10*6/?L. The reference range was not used to interpret this result as normal/abnormal . HGB (test code = 12.4 g/dL 11.6-15.0 718-7) HCT (test code = 38.9 % 35.7-45.2 4544-3) MCV (test code = 79.6 fL 80.6-95.5 L 787-2) MCH (test code = 25.4 pg 25.9-32.8 L 785-6) MCHC (test code = 31.9 g/dL 31.6-35.1 786-4) RDW-SD (test code = 43.8 fL 39.0-49.9 44806-4) RDW-CV (test code = 15.2 % 12.0-15.5 788-0) PLT (test code = See_Comment [Automated 777-3) message] The sy stem which generated this result transmitted reference range : 166 - 358 10*3/ ?L. The reference r suzi was not used to interpret this result as normal/abnormal . MPV (test code = 11.3 fL 9.5-12.9 48668-1) NRBC/100 WBC (test See_Comment [Automat ed code = 1781762088) message] The system which generated this result transmitted reference range : 0.0 - 10.0 /100 WBCs. The refer ence range was not u sed to interpret th is result as normal/abnormal . NRBC x10^3 (test code <0.01 See_Comment [Auto mated = 0160328715) message] The s ystem which generated this result transmitted reference range : 10*3/?L. The reference range was not used to interpret this result as normal/abnormal . GRAN MAT (NEUT) % 71.7 % (test code = 770-8) IMM GRAN % (test code 0.20 % = 0170270474) LYMPH % (test code = 22.5 % 736-9) MONO % (test code = 4.2 % 5905-5) EOS % (test code = 0.8 % 713-8) BASO % (test code = 0.6 % 706-2) GRAN MAT x10^3(ANC) 6.26 10*3/uL 1.88-7.09 (test code = 5124473567) IMM GRAN x10^3 (test <0.03 0.00-0.06 code = 9128771918) LYMPH x10^3 (test code 1.96 10*3/uL 1.32-3.29 = 731-0) MONO x10^3 (test code 0.37 10*3/uL 0.33-0.92 = 742-7) EOS x10^3 (test code = 0.07 10*3/uL 0.03-0.39 711-2) BASO x10^3 (test code 0.05 10*3/uL 0.01-0.07 = 704-7) Lab Interpretation Abnormal (test code = 09807-3) [facility] [id number] 02:14:00 Test Item Value Reference Range Interpretation Comments POCT PREG (test code = 1605) negative On board controls acceptable with present C Line (test code = 3574) POCT PREG LOT # (test code = 3575) [id number] POCT PREG TEST DATE (test 06/21/2023 code = 3576) Lab Interpretation (test code = Normal 54415-1) [facility] ABDOMEN [id number] 23:14:22 Cholelithiasis with no evidence of acute cholecystitis. Mild hepatomegaly. ISarita MD., have reviewed this study and agree with theabove report.RIGHT UPPER QUADRANT ABDOMINAL ULTRASOUND HISTORY: RUQ abd pain COMPARISON: CT-11/28/2018. FINDINGS: PANCREAS: The visualized portions of the p ancreas are unremarkable. LIVER: The liver is?mildly enlarged, measuring 18.6 cm. Normal echotextureand contour. No focal hepatic lesion.?Hepatopetal?flow within the mainportal vein. GALLBLADDER: The gallbladder is contracted, containing a large stonemeasuring 1.3 cm No pericholecystic fluid, or wall t hickening. Negativesonographic Hayward's sign. The common bile duct measures 4 mm. RIGHT KIDNEY: The visualized portions of the right kidney are unremarkable. [facility], Radiant Results Inft User - 05/17/2019 6:16 PM CDTRIGHT UPPER QUADRANT ABDOMINAL ULTRASOUND HISTORY: RUQ abd pain COMPARISON: CT-11/28/2018.FINDINGS: PANCREAS: The visualized portions of the pancreas are unremarkable. LIVER: The liver is mildly enlarged, measuring 18.6 cm. Normal echotextureand contour. No focal hepatic lesion. Hepatopetalflow within the mainportal vein. GALLBLADDER: The gallbladder is contracted, containing a large stonemeasuring 1.3 cm No pericholecystic fluid, or wall thickening. Negativesonographic Hayward's sign. The common bile duct measures 4 mm.RIGHT KIDNEY: The visualized portions of the right kidney are unremarkable.IMPRESSION Cholelithiasis with no evidence of acute cholecystitis.Mild hepatomegaly.ISarita MD., have reviewed this study and agree with theabove report.[facility]2019-08-13 19:31:00 Test Item Value Reference Range Interpretation Comments APPEARANCE (test code Slightly Cloudy Clear A = 6758356896) COLOR (test code = Yellow Yellow 5061474599) PH (test code = 4.8-8.0 8763118962) SP GRAVITY (test code <=1.005 1.003-1.030 = 1486094400) GLU U QUAL (test code Negative Negative = 0538529131) BLOOD (test code = Negative Negative 7465855891) KETONES (test code = Negative Negative 0772211106) PROTEIN (test code = Negative Negative 2887-8) UROBILIN (test code = 0.2 mg/dL See_Comment [Auto mated 7383210576) message] The system which generated this result transmit refugio reference range : 0-1.0 mg/dL. Th e reference range was not used to interpret this result as normal/abnormal . BILIRUBIN (test code Negative Negative = 1902577579) NITRITE (test code = Negative Negative 6529393527) LEUK SUMMER (test code Large Negative A = 0084761436) RBC/HPF (test code = See_Comment [Autom ated 5993017606) message] The system which generated this result transmit refugio reference range : 0 - 3 HPF. The reference range was not used to interpret this result as normal/abnormal . WBC/HPF (test code = See_Comment H [Autom ated 1871606773) message] The system which generated this result transmit refugio reference range : 0 - 5 HPF. The reference range was not used to interpret this result as normal/abnormal . BACTERIA (test code = Moderate Negative A 4987009345) SQ EPITH (test code = HPF 4831249236) Lab Interpretation Abnormal (test code = 74276-0) [facility]LC OR [facility] ONLY - WET [id number] 19:28:00 Test Item Value Reference Range Interpretation Comments Wet Prep (test code No Trichomonas vaginalis = 8094386656) present [facility] ONLY - FERN [id number] 19:24:00 Test Item Value Reference Range Interpretation Comments Fern Test (test code = 9311592217) Negative [facility]"
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
[2022-08-03 22:40] VITALS: BP 120/76; TEMP 98.9; O2SAT 100
== END 2022-08-03 22:35 | disposition home or self-care (01) ==
LOC: ER 21:26
DX: F41.1 Generalized anxiety disorder (principal); M62.838 Other muscle spasm; K62.89 Other specified diseases of anus and rectum; T74.21XA Adult sexual abuse, confirmed, initial encounter
CPT/HCPCS: 99284

== ENCOUNTER 2022-11-04 18:53 | Emergency (ER) | payer SELFPAY ==
--- OUTSIDE RECORDS SUMMARY | 2022-11-04 18:58 | XMS REPORT | Continuity of Care Document ---
:2000 Author Organization [facility] t Address [address] [place] [address] Care Team Providers Name Role Phone Chasidy Bolaños MD Primary Care Physician LEEROY DENG Attending Clinician Unavailable YVONNE SIDDIQI Attending Clinician Unavailable Yvonne Rodriguez Attending Clinician HUY CUELLAR Attending Clinician Unavailable Jennifer Belcher LMSW Attending Clinician Unavailable Broderick Melton DO Attending Clinician ITZEL CHAUDHARY Attending Clinician Unavailable KRISSY GREEN Attending Clinician Unavailable Itzel Chaudhary PA-C Attending Clinician 1, [facility] Attending Clinician Unavailable Chasidy Bolaños MD Attending Clinician Doctor Unassigned, [place] Attending Clinician Unavailable Chasidy Bolaños MD Admitting Clinician Payers Payer Name Policy Type Policy Number Effective Date Expiration Date Leno trammell [facility] KRYSTIN [id number] 2018 00:00:00 Problems Condition Condition Condition Status Onset Resolution Last Treating Co mments Source Name Details Category Date Date Treatment Clinician Date Nexplanon Nexplanon Disease Active 2018-09 Uni vers insertion insertion 2-16 ity of 00:00: [place] [facility] Nexplanon Nexplanon Disease Active 2018-[address] in place 2-16 ity of 00:00: [place] [address] [facility] [place] Encounter Encounter Disease Active 2018-09 Uni vers for female for female 2-16 it y of 00:00: [place] control control [facility] Anemia, Anemia, Disease Active 2018-09 Univers antepartum antepartum 1-12 it y of , third , third 00:00: [place] trimester trimester 00 [facility] Obesity Obesity Disease Active Univers (BMI (BMI 4-15 ity of 30-39.9) 30-39.9) 00:00: [place] [facility] [place] History of History of Disease Active U tariqers depression depression 4-15 it y of 00:00: [place] [address] [facility] [place] History of History of Disease Active U nivers anxiety anxiety 4-15 ity of 00:00: [address] Allergies, Adverse Reactions, Alerts Allergy Allergy Status Severity Reaction(s) Onset Inactive Treating Comm ents Source Name Type Date Date Clinician NO KNOWN Drug Active Univers ALLERGIE Class ity of S [facility] Social History Social Habit Start Date Stop Date Quantity Comments Source ASSERTION 2018-11-14 University of 00:00:00 [facility] History of Cigarette Smoker Universi ty of tobacco use [facility] Exposure to 2022-01-06 2022-01-16 Unable to assess Univers ity of SARS-CoV-2 00:00:00 20:33:00 [facility] (event) [place] Alcohol intake 2022-01-16 2022-01-16 Current University of 00:00:00 00:00:00 non-drinker of [facility] alcohol (finding) [place] Tobacco Comment 2019-01-04 2019-01-04 fiance smokes Univer sity of 00:00:00 00:00:00 outside [facility] Tobacco use and 2015-04-13 2015-04-13 Never used Universit y of exposure 00:00:00 00:00:00 [facility] Sex Ass[birth year] At [birth year] Universit y of 00:00:00 00:00:00 [facility] Smoking Status Start Date Stop Date Source Never smoker [facility] Medications Ordered Filled Start Stop Current Ordering Indication Dosage Frequency Signature Comments Components Source Medication Medication Date Date Medication? Clinician (SIG) Name Name ondansetron No 4mg 4 mg, Slow Univers (ZOFRAN 01-17 IV Push, ity of (PF)) 04:00: 03:11 ONCE, 1 [place] injection 4 00 :00 dose, On Medi moiz mg Wed Branch 01/16/22 at 2300, ABHAY NaCl 0.9% No 1000mL at 999 Uni vers (NS) bolus 01-17 mL/hr, ity of infusion 04:00: 03:52 1,000 mL, Juan as 1,000 mL 00 :00 IV Medical Infusion, Branch ONCE, 1 dose, On 01/16/22 at 2300, ABHAY ondansetron 0 Yes [id number] 4mg Take 1 Univers 4 mg 4-27 tablet by ity of disintegrat 00:00: mouth [place] ing tablet 00 every 8 Medica l (eight) Branch hours as needed for Nausea and Vomiting (N/V). azithromyci 2020-0 Yes [id number] 250mg Take 1 Univers n 250 mg 3-28 tablet by ity of tablet 00:00: mouth [place] 00 daily. Medical Take 500 Branch mg day 1, then 250 mg days 2 to 5. azithromyci 2020-0 Yes [id number] 250mg Take 1 Univers n 250 mg 3-28 tablet by ity of tablet 00:00: mouth [place] 00 daily. Medical Take 500 Branch mg day 1, then 250 mg days 2 to 5. azithromyci 2020-0 Yes [id number] 250mg Take 1 Univers n 250 mg 3-28 tablet by ity of tablet 00:00: mouth [place] 00 daily. Medical Take 500 Branch mg day 1, then 250 mg days 2 to 5. Nitrofurant 2019- No [id number] 100mg Take 1 Univers oin&Nit. 05-04- capsule by ity of Macrocryst 00:00: 04:59 mouth 2 [place] as 100 mg 00 :00 (two) Medical capsule times Branch daily for 7 days. metroNIDAZO 2018- Yes [id number] 500mg Take 1 Univers LE 500 mg 8-09 tablet by ity o f tablet 00:00: mouth [place] 00 every 12 Medical (twelve) Branch hours. metroNIDAZO 2018- Yes [id number] 500mg Take 1 Univers LE 500 mg 8-09 tablet by ity o f tablet 00:00: mouth [place] 00 every 12 Medical (twelve) Branch hours. metroNIDAZO Yes [id number] 500mg Take 1 Univers LE 500 mg 8-09 tablet by ity o f tablet 00:00: mouth [place] 00 every 12 Medical (twelve) Branch hours. metroNIDAZO 2019- No [id number] 500mg Take 1 Univers LE 500 mg 04-30- tablet by ity of tablet 00:00: 00:00 mouth [place] 00 :00 every 12 Medical (twelve) Branch hours. fluconazole Yes [id number] 200mg Take 1 Univers (DIFLUCAN) 8-08 tablet by ity of 200 mg 00:00: mouth [place] tablet 00 daily. Medical Branch fluconazole Yes [id number] 200mg Take 1 Univers (DIFLUCAN) 8-08 tablet by ity of 200 mg 00:00: mouth [place] tablet 00 daily. Medical Branch fluconazole Yes [id number] 200mg Take 1 Univers (DIFLUCAN) 8-08 tablet by ity of 200 mg 00:00: mouth [place] tablet 00 daily. Medical Branch fluconazole 2018- Yes [id number] 200mg Take 1 Univers (DIFLUCAN) 8-08 tablet by ity of 200 mg 00:00: mouth [place] tablet 00 daily. Medical Branch fluconazole 2018- 2019- No [id number] 200mg Take 1 Univers (DIFLUCAN) 8-08 -13 tablet by ity of 200 mg 00:00: 00:00 mouth [place] tablet 00 :00 daily. Medical Branch [id number], 2018- Yes [id number] Take 1 Univers carb,glu-FA 4-15 9106 TAB-CAP/M2 it y of -dss-dha 00:00: by mouth [place] (CITRANATAL 00 daily. Medica l DHA, ALGAL Branch OIL,) 27 mg iron-1 mg -50 mg-250 mg Cmpk [id number], 2019-0 Yes [id number] Take 1 Univers carb,glu-FA 4-15 9106 TAB-CAP/M2 it y of -dss-dha 00:00: by mouth [place] (CITRANATAL 00 daily. Medica l DHA, ALGAL Branch OIL,) 27 mg iron-1 mg -50 mg-250 mg Cmpk [id number], 2019-0 Yes [id number] Take 1 Univers carb,glu-FA 4-15 9106 TAB-CAP/M2 it y of -dss-dha 00:00: by mouth [place] (CITRANATAL 00 daily. Medica l DHA, ALGAL Branch OIL,) 27 mg iron-1 mg -50 mg-250 mg Cmpk [id number], 2018-0 Yes [id number] Take 1 Univers carb,glu-FA 4-15 9106 TAB-CAP/M2 it y of -dss-dha 00:00: by mouth [place] (CITRANATAL 00 daily. Medica l DHA, ALGAL Branch OIL,) 27 mg iron-1 mg -50 mg-250 mg Cmpk [id number], 2019-0 Yes [id number] Take 1 Univers carb,glu-FA 4-15 9106 TAB-CAP/M2 it y of -dss-dha 00:00: by mouth [place] (CITRANATAL 00 daily. Medica l DHA, ALGAL Branch OIL,) 27 mg iron-1 mg -50 mg-250 mg Cmpk [id number], 2019-0 Yes [id number] Take 1 Univers carb,glu-FA 4-15 9106 TAB-CAP/M2 it y of -dss-dha 00:00: by mouth [place] (CITRANATAL 00 daily. Medica l DHA, ALGAL Branch OIL,) 27 mg iron-1 mg -50 mg-250 mg Cmpk [id number], 2019-0 Yes [id number] Take 1 Univers carb,glu-FA 4-15 9106 TAB-CAP/M2 it y of -dss-dha 00:00: by mouth [place] (CITRANATAL 00 daily. Medica l DHA, ALGAL Branch OIL,) 27 mg iron-1 mg -50 mg-250 mg Cmpk [id number], 2019-0 Yes [id number] Take 1 Univers carb,glu-FA 4-15 9106 TAB-CAP/M2 it y of -dss-dha 00:00: by mouth [place] (CITRANATAL 00 daily. Medica l DHA, ALGAL Branch OIL,) 27 mg iron-1 mg -50 mg-250 mg Cmpk [id number], 2019-0 Yes [id number] Take 1 Univers carb,glu-FA 4-15 9106 TAB-CAP/M2 it y of -dss-dha 00:00: by mouth [place] (CITRANATAL 00 daily. Medica l DHA, ALGAL Branch OIL,) 27 mg iron-1 mg -50 mg-250 mg Cmpk [id number], 2018-0 Yes [id number] Take 1 Univers carb,glu-FA 4-15 9106 TAB-CAP/M2 it y of -dss-dha 00:00: by mouth [place] (CITRANATAL 00 daily. Medica l DHA, ALGAL Branch OIL,) 27 mg iron-1 mg -50 mg-250 mg Cmpk [id number], 2018-0 Yes [id number] Take 1 Univers carb,glu-FA 4-15 9106 TAB-CAP/M2 it y of -dss-dha 00:00: by mouth [place] (CITRANATAL 00 daily. Medica l DHA, ALGAL Branch OIL,) 27 mg iron-1 mg -50 mg-250 mg Cmpk [id number], 2018-0 Yes [id number] Take 1 Univers carb,glu-FA 4-15 9106 TAB-CAP/M2 it y of -dss-dha 00:00: by mouth [place] (CITRANATAL 00 daily. Medica l DHA, ALGAL Branch OIL,) 27 mg iron-1 mg -50 mg-250 mg Cmpk [id number], 2018-0 Yes [id number] Take 1 Univers carb,glu-FA 4-15 9106 TAB-CAP/M2 [...] VACCINE 2019-04-01 Completed Uni versity of 00:00:00 [facility] TDAP (ADACEL) VACCINE 2019-04-01 Completed Uni versity of 00:00:00 [facility] TDAP (ADACEL) VACCINE 2019-04-01 Completed Uni versity of 00:00:00 [facility] Influenza Virus 2019-01-04 Completed Universit y of [...] Branch HPV 2015-04-13 Completed University of 00:00:00 [facility] Meningococcal 2015-04-13 Completed University of Polysaccharide 00:00:00 [place] [facility] (groups A, C, Y and Branc h W-135) conjugate vaccine (MCV4P) TDAP (ADACEL) VACCINE 2015-04-13 Completed Uni versity of 00:00:00 [facility] HPV 2015-04-13 Completed University of 00:00:00 [facility] Meningococcal 2015-04-13 Completed University of Polysaccharide 00:00:00 [place] [facility] (groups A, C, Y and Branc h W-135) conjugate vaccine (MCV4P) TDAP (ADACEL) VACCINE 2015-04-13 Completed Uni versity of 00:00:00 [facility] HPV 2015-04-13 Completed University of 00:00:00 [facility] Meningococcal 2015-04-13 Completed University of Polysaccharide 00:00:00 [place] [facility] (groups A, C, Y and Branc h W-135) conjugate vaccine (MCV4P) TDAP (ADACEL) VACCINE 2015-04-13 Completed Uni versity of 00:00:00 [facility] HPV 2015-04-13 Completed University of 00:00:00 [facility] Meningococcal 2015-04-13 Completed University of Polysaccharide 00:00:00 [place] [facility] (groups A, C, Y and Branc h W-135) conjugate vaccine (MCV4P) TDAP (ADACEL) VACCINE 2015-04-13 Completed Uni versity of 00:00:00 [facility] HPV 2015-04-13 Completed University of 00:00:00 [facility] Meningococcal 2015-04-13 Completed University of Polysaccharide 00:00:00 [place] Medi moiz (groups A, C, Y and Branc h W-135) conjugate vaccine (MCV4P) TDAP (ADACEL) VACCINE 2015-04-13 Completed Uni versity of 00:00:00 [facility] HPV 2015-04-13 Completed University of 00:00:00 [facility] Meningococcal 2015-04-13 Completed University of Polysaccharide 00:00:00 [place] Medi moiz (groups A, C, Y and Branc h W-135) conjugate vaccine (MCV4P) TDAP (ADACEL) VACCINE 2015-04-13 Completed Uni versity of 00:00:00 [facility] HPV 2015-04-13 Completed University of 00:00:00 [facility] Meningococcal 2015-04-13 Completed University of Polysaccharide 00:00:00 [place] Medi moiz (groups A, C, Y and Branc h W-135) conjugate vaccine (MCV4P) TDAP (ADACEL) VACCINE 2015-04-13 Completed Uni versity of 00:00:00 [facility] HPV 2015-04-13 Completed University of 00:00:00 [facility] Meningococcal 2015-04-13 Completed University of Polysaccharide 00:00:00 [place] [facility] (groups A, C, Y and Branc h W-135) conjugate vaccine (MCV4P) TDAP (ADACEL) VACCINE 2015-04-13 Completed Uni versity of 00:00:00 [facility] HPV 2015-04-13 Completed University of 00:00:00 [facility] Meningococcal 2015-04-13 Completed University of Polysaccharide 00:00:00 [place] [facility] (groups A, C, Y and Branc h W-135) conjugate vaccine (MCV4P) TDAP (ADACEL) VACCINE 2015-04-13 Completed Uni versity of 00:00:00 [facility] HPV 2015-04-13 Completed University of 00:00:00 [facility] Meningococcal 2015-04-13 Completed University of Polysaccharide 00:00:00 [place] [facility] (groups A, C, Y and Branc h W-135) conjugate vaccine (MCV4P) TDAP (ADACEL) VACCINE 2015-04-13 Completed Uni versity of 00:00:00 [facility] HPV 2015-04-13 Completed University of 00:00:00 [facility] Meningococcal 2015-04-13 Completed University of Polysaccharide 00:00:00 [place] [facility] (groups A, C, Y and Branc h W-135) conjugate vaccine (MCV4P) HPV 2015-04-13 Completed University of 00:00:00 [facility] Meningococcal 2015-04-13 Completed University of Polysaccharide 00:00:00 [place] [facility] (groups A, C, Y and Branc h W-135) conjugate vaccine (MCV4P) TDAP (ADACEL) VACCINE 2015-04-13 Completed Uni versity of 00:00:00 [facility] TDAP (ADACEL) VACCINE 2015-04-13 Completed Uni versity of 00:00:00 [facility] HPV 2015-04-13 Completed University of 00:00:00 [facility] Meningococcal 2015-04-13 Completed University of Polysaccharide 00:00:00 [place] [facility] (groups A, C, Y and Branc h W-135) conjugate vaccine (MCV4P) TDAP (ADACEL) VACCINE 2015-04-13 Completed Uni versity of 00:00:00 [facility] HPV 2015-04-13 Completed University of 00:00:00 [facility] Meningococcal 2015-04-13 Completed University of Polysaccharide 00:00:00 [place] [facility] (groups A, C, Y and Branc h W-135) conjugate vaccine (MCV4P) TDAP (ADACEL) VACCINE 2015-04-13 Completed Uni versity of 00:00:00 [facility] HPV 2015-04-13 Completed University of 00:00:00 [facility] Meningococcal 2015-04-13 Completed University of Polysaccharide 00:00:00 [place] [facility] (groups A, C, Y and Branc h W-135) conjugate vaccine (MCV4P) TDAP (ADACEL) VACCINE 2015-04-13 Completed Uni versity of 00:00:00 [facility] HPV 2015-04-13 Completed University of 00:00:00 [facility] Meningococcal 2015-04-13 Completed University of Polysaccharide 00:00:00 [place] [facility] (groups A, C, Y and Branc h W-135) conjugate vaccine (MCV4P) TDAP (ADACEL) VACCINE 2015-04-13 Completed Uni versity of 00:00:00 [facility] HPV 2012-06-29 Completed University of 00:00:00 [facility] HPV 2012-06-29 Completed University of 00:00:00 [facility] HPV 2012-06-29 Completed University of 00:00:00 [facility] Meningococcal 2009-12-12 Completed University of Polysaccharide 00:00:00 [place] [facility] (groups A, C, Y and Branc h W-135) conjugate vaccine (MCV4P) Varicella 2009-12-12 Completed University of (varivax)(chicken 00:00:00 [place] [facility] [place] pox) Branch Meningococcal 2009-12-12 Completed University of Polysaccharide 00:00:00 [place] [facility] (groups A, C, Y and Branc h W-135) conjugate vaccine (MCV4P) Varicella 2009-12-12 Completed University of (varivax)(chicken 00:00:00 [place] [facility] pox) Branch Meningococcal 2009-12-12 Completed University of Polysaccharide 00:00:00 [facility] moiz (groups A, C, Y and Branc h W-135) conjugate vaccine (MCV4P) Varicella 2009-12-12 Completed University of (varivax)(chicken 00:00:00 [place] [facility] pox) Branch HIB 4 Dose Schedule 2002-11-11 Completed Unive rsity of 00:00:00 [facility] Hep B, Adol or Pedi 2002-11-11 Completed Unive rsity of Dosage 00:00:00 [facility] MMR 2002-11-11 Completed University of 00:00:00 [facility] Polio (IPV/OPV) 2002-11-11 Completed Universit y of 00:00:00 [facility] Varicella 2002-11-11 Completed University of (varivax)(chicken 00:00:00 [place] [facility] [place] pox) Branch DTAP 2002-11-11 Completed University of 00:00:00 [facility] Hep B, Adol or Pedi 2002-11-11 Completed Unive rsity of Dosage 00:00:00 [facility] HIB 4 Dose Schedule 2002-11-11 Completed Unive rsity of 00:00:00 [facility] Polio (IPV/OPV) 2002-11-11 Completed Universit y of 00:00:00 [facility] MMR 2002-11-11 Completed University of 00:00:00 [facility] Varicella 2002-11-11 Completed University of (varivax)(chicken 00:00:00 [place] [facility] [place] pox) Branch DTAP 2002-11-11 Completed University of 00:00:00 [facility] HIB 4 Dose Schedule 2002-11-11 Completed Unive rsity of 00:00:00 [facility] Hep B, Adol or Pedi 2002-11-11 Completed Unive rsity of Dosage 00:00:00 [facility] MMR 2002-11-11 Completed University of 00:00:00 [facility] Polio (IPV/OPV) 2002-11-11 Completed Universit y of 00:00:00 [facility] Varicella 2002-11-11 Completed University of (varivax)(chicken 00:00:00 [place] [facility] [place] pox) Branch DTAP 2002-11-11 Completed University of 00:00:00 [facility] Hep B, Adol or Pedi 2002-11-11 Completed Unive rsity of Dosage 00:00:00 [facility] HIB 4 Dose Schedule 2002-11-11 Completed Unive rsity of 00:00:00 [facility] Polio (IPV/OPV) 2002-11-11 Completed Universit y of 00:00:00 [facility] MMR 2002-11-11 Completed University of 00:00:00 [facility] Varicella 2002-11-11 Completed University of (varivax)(chicken 00:00:00 [place] [facility] [place] pox) Branch DTAP 2002-11-11 Completed University of 00:00:00 [facility] HIB 4 Dose Schedule 2002-11-11 Completed Unive rsity of 00:00:00 [facility] Hep B, Adol or Pedi 2002-11-11 Completed Unive rsity of Dosage 00:00:00 [facility] MMR 2002-11-11 Completed University of 00:00:00 [facility] Polio (IPV/OPV) 2002-11-11 Completed Universit y of 00:00:00 [facility] Varicella 2002-11-11 Completed University of (varivax)(chicken 00:00:00 [place] [facility] [place] pox) Branch DTAP 2002-11-11 Completed University of 00:00:00 [facility] Hep B, Adol or Pedi 2002-11-11 Completed Unive rsity of Dosage 00:00:00 [facility] HIB 4 Dose Schedule 2002-11-11 Completed Unive rsity of 00:00:00 [facility] Polio (IPV/OPV) 2002-11-11 Completed Universit y of 00:00:00 [facility] MMR 2002-11-11 Completed University of 00:00:00 [facility] Varicella 2002-11-11 Completed University of (varivax)(chicken 00:00:00 [place] [facility] [place] pox) Branch DTAP 2002-11-11 Completed University of 00:00:00 [facility] HIB 4 Dose Schedule 2002-11-11 Completed Unive rsity of 00:00:00 [facility] Hep B, Adol or Pedi 2002-11-11 Completed Unive rsity of Dosage 00:00:00 [facility] MMR 2002-11-11 Completed University of 00:00:00 [facility] Polio (IPV/OPV) 2002-11-11 Completed Universit y of 00:00:00 [facility] Varicella 2002-11-11 Completed University of (varivax)(chicken 00:00:00 [place] M edical pox) Branch DTAP 2002-11-11 Completed University of 00:00:00 [facility] Hep B, Adol or Pedi 2002-11-11 Completed Unive rsity of Dosage 00:00:00 [facility] HIB 4 Dose Schedule 2002-11-11 Completed Unive rsity of 00:00:00 [facility] Polio (IPV/OPV) 2002-11-11 Completed Universit y of 00:00:00 [facility] MMR 2002-11-11 Completed University of 00:00:00 [facility] Varicella 2002-11-11 Completed University of (varivax)(chicken 00:00:00 [place] [facility] [place] pox) Branch DTAP 2002-11-11 Completed University of 00:00:00 [facility] HIB 4 Dose Schedule 2002-11-11 Completed Unive rsity of 00:00:00 [facility] Hep B, Adol or Pedi 2002-11-11 Completed Unive rsity of Dosage 00:00:00 [facility] MMR 2002-11-11 Completed University of 00:00:00 [facility] Polio (IPV/OPV) 2002-11-11 Completed Universit y of 00:00:00 [facility] Varicella 2002-11-11 Completed University of (varivax)(chicken 00:00:00 [place] [facility] [place] pox) Branch DTAP 2002-11-11 Completed University of 00:00:00 [facility] Hep B, Adol or Pedi 2002-11-11 Completed Unive rsity of Dosage 00:00:00 [facility] HIB 4 Dose Schedule 2002-11-11 Completed Unive rsity of 00:00:00 [facility] Polio (IPV/OPV) 2002-11-11 Completed Universit y of 00:00:00 [facility] MMR 2002-11-11 Completed University of 00:00:00 [facility] Varicella 2002-11-11 Completed University of (varivax)(chicken 00:00:00 [place] [facility] [place] pox) Branch DTAP 2002-11-11 Completed University of 00:00:00 [facility] HIB 4 Dose Schedule 2002-11-11 Completed Unive rsity of 00:00:00 [facility] Hep B, Adol or Pedi 2002-11-11 Completed Unive rsity of Dosage 00:00:00 [facility] MMR 2002-11-11 Completed University of 00:00:00 [facility] Polio (IPV/OPV) 2002-11-11 Completed Universit y of 00:00:00 [facility] Varicella 2002-11-11 Completed University of (varivax)(chicken 00:00:00 [place] [facility] [place] pox) Branch DTAP 2002-11-11 Completed University of 00:00:00 [facility] Hep B, Adol or Pedi 2002-11-11 Completed Unive rsity of Dosage 00:00:00 [facility] HIB 4 Dose Schedule 2002-11-11 Completed Unive rsity of 00:00:00 [facility] Polio (IPV/OPV) 2002-11-11 Completed Universit y of 00:00:00 [facility] MMR 2002-11-11 Completed University of 00:00:00 [facility] Varicella 2002-11-11 Completed University of (varivax)(chicken 00:00:00 [place] M edical pox) Branch DTAP 2002-11-11 Completed University of 00:00:00 [facility] DTAP 2002-11-11 Completed University of 00:00:00 [facility] HIB 4 Dose Schedule 2002-11-11 Completed Unive rsity of 00:00:00 [facility] HIB 4 Dose Schedule 2002-11-11 Completed Unive rsity of 00:00:00 [facility] Hep B, Adol or Pedi 2002-11-11 Completed Unive rsity of Dosage 00:00:00 [facility] MMR 2002-11-11 Completed University of 00:00:00 [facility] Polio (IPV/OPV) 2002-11-11 Completed Universit y of 00:00:00 [facility] Varicella 2002-11-11 Completed University of (varivax)(chicken 00:00:00 [place] [facility] [place] [place] [facility] DTAP 2002-11-11 Completed University of 00:00:00 [facility] Hep B, Adol or Pedi 2002-11-11 Completed Unive rsity of Dosage 00:00:00 [facility] HIB 4 Dose Schedule 2002-11-11 Completed Unive rsity of 00:00:00 [facility] Polio (IPV/OPV) 2002-11-11 Completed Universit y of 00:00:00 [facility] MMR 2002-11-11 Completed University of 00:00:00 [facility] Hep B, Adol or Pedi 2002-11-11 Completed Unive rsity of Dosage 00:00:00 [facility] Varicella 2002-11-11 Completed University of (varivax)(chicken 00:00:00 [place] [facility] [place] [facility] MMR 2002-11-11 Completed University of 00:00:00 [facility] DTAP 2002-11-11 Completed University of 00:00:00 [facility] HIB 4 Dose Schedule 2002-11-11 Completed Unive rsity of 00:00:00 [facility] Hep B, Adol or Pedi 2002-11-11 Completed Unive rsity of Dosage 00:00:00 [facility] MMR 2002-11-11 Completed University of 00:00:00 [facility] Polio (IPV/OPV) 2002-11-11 Completed Universit y of 00:00:00 [facility] Varicella 2002-11-11 Completed University of (varivax)(chicken 00:00:00 [place] [facility] [place] [facility] Polio (IPV/OPV) 2002-11-11 Completed Universit y of 00:00:00 [facility] DTAP 2002-11-11 Completed University of 00:00:00 [facility] Hep B, Adol or Pedi 2002-11-11 Completed Unive rsity of Dosage 00:00:00 [facility] HIB 4 Dose Schedule 2002-11-11 Completed Unive rsity of 00:00:00 [facility] Polio (IPV/OPV) 2002-11-11 Completed Universit y of 00:00:00 [facility] MMR 2002-11-11 Completed University of 00:00:00 [facility] Varicella 2002-11-11 Completed University of (varivax)(chicken 00:00:00 [place] [facility] [place] [facility] Varicella 2002-11-11 Completed University of (varivax)(chicken 00:00:00 [place] [facility] [place] [facility] DTAP 2002-11-11 Completed University of 00:00:00 [facility] DTAP 2002-11-11 Completed University of 00:00:00 [facility] HIB 4 Dose Schedule 2002-11-11 Completed Unive rsity of 00:00:00 [facility] Hep B, Adol or Pedi 2002-11-11 Completed Unive rsity of Dosage 00:00:00 [facility] MMR 2002-11-11 Completed University of 00:00:00 [facility] Polio (IPV/OPV) 2002-11-11 Completed Universit y of 00:00:00 [facility] Varicella 2002-11-11 Completed University of (varivax)(chicken 00:00:00 [place] [facility] [place] [place] [facility] DTAP 2002-11-11 Completed University of 00:00:00 [facility] Hep B, Adol or Pedi 2002-11-11 Completed Unive rsity of Dosage 00:00:00 [facility] HIB 4 Dose Schedule 2002-11-11 Completed Unive rsity of 00:00:00 [facility] Hep B, Adol or Pedi 2002-11-11 Completed Unive rsity of Dosage 00:00:00 [facility] Polio (IPV/OPV) 2002-11-11 Completed Universit y of 00:00:00 [facility] MMR 2002-11-11 Completed University of 00:00:00 [facility] Varicella 2002-11-11 Completed University of (varivax)(chicken 00:00:00 [place] [facility] [place] [place] [facility] HIB 4 Dose Schedule 2002-11-11 Completed Unive rsity of 00:00:00 [facility] DTAP 2002-11-11 Completed University of 00:00:00 [facility] HIB 4 Dose Schedule 2002-11-11 Completed Unive rsity of 00:00:00 [facility] Hep B, Adol or Pedi 2002-11-11 Completed Unive rsity of Dosage 00:00:00 [facility] MMR 2002-11-11 Completed University of 00:00:00 [facility] Polio (IPV/OPV) 2002-11-11 Completed Universit y of 00:00:00 [facility] Varicella 2002-11-11 Completed University of (varivax)(chicken 00:00:00 [place] [facility] [place] [facility] Polio (IPV/OPV) 2002-11-11 Completed Universit y of 00:00:00 [facility] DTAP 2002-11-11 Completed University of 00:00:00 [facility] Hep B, Adol or Pedi 2002-11-11 Completed Unive rsity of Dosage 00:00:00 [facility] HIB 4 Dose Schedule 2002-11-11 Completed Unive rsity of 00:00:00 [facility] Polio (IPV/OPV) 2002-11-11 Completed Universit y of 00:00:00 [facility] MMR 2002-11-11 Completed University of 00:00:00 [facility] Varicella 2002-11-11 Completed University of (varivax)(chicken 00:00:00 [place] [facility] [place] [place] [facility] MMR 2002-11-11 Completed University of 00:00:00 [facility] Varicella 2002-11-11 Completed University of (varivax)(chicken 00:00:00 [place] [facility] [place] [place] [facility] DTAP 2002-11-11 Completed University of 00:00:00 [facility] HIB 4 Dose Schedule 2002-11-11 Completed Unive rsity of 00:00:00 [facility] Hep B, Adol or Pedi 2002-11-11 Completed Unive rsity of Dosage 00:00:00 [facility] MMR 2002-11-11 Completed University of 00:00:00 [facility] Polio (IPV/OPV) 2002-11-11 Completed Universit y of 00:00:00 [facility] Varicella 2002-11-11 Completed University of (varivax)(chicken 00:00:00 [place] [facility] [place] [place]ox[place] [facility] DTAP 2002-11-11 Completed University of 00:00:00 [facility] Hep B, Adol or Pedi 2002-11-11 Completed Unive rsity of Dosage 00:00:00 [facility] HIB 4 Dose Schedule 2002-11-11 Completed Unive rsity of 00:00:00 [facility] Polio (IPV/OPV) 2002-11-11 Completed Universit y of 00:00:00 [facility] MMR 2002-11-11 Completed University of 00:00:00 [facility] Varicella 2002-11-11 Completed University of (varivax)(chicken 00:00:00 [place] [facility] [place] [place] [facility] DTAP 2002-11-11 Completed University of 00:00:00 [facility] HIB 4 Dose Schedule 2002-11-11 Completed Unive rsity of 00:00:00 [facility] Hep B, Adol or Pedi 2002-11-11 Completed Unive rsity of Dosage 00:00:00 [facility] MMR 2002-11-11 Completed University of 00:00:00 [facility] Polio (IPV/OPV) 2002-11-11 Completed Universit y of 00:00:00 [facility] Varicella 2002-11-11 Completed University of (varivax)(chicken 00:00:00 [place] [facility] [place] [place]ox[place] [facility] DTAP 2002-11-11 Completed University of 00:00:00 [facility] Hep B, Adol or Pedi 2002-11-11 Completed Unive rsity of Dosage 00:00:00 [facility] HIB 4 Dose Schedule 2002-11-11 Completed Unive rsity of 00:00:00 [facility] Polio (IPV/OPV) 2002-11-11 Completed Universit y of 00:00:00 [facility] MMR 2002-11-11 Completed University of 00:00:00 [facility] Varicella 2002-11-11 Completed University of (varivax)(chicken 00:00:00 [place] [facility] [place] [facility] DTAP 2002-11-11 Completed University of 00:00:00 [facility] HIB 4 Dose Schedule 2002-11-11 Completed Unive rsity of 00:00:00 [facility] Hep B, Adol or Pedi 2002-11-11 Completed Unive rsity of Dosage 00:00:00 [facility] MMR 2002-11-11 Completed University of 00:00:00 [facility] Polio (IPV/OPV) 2002-11-11 Completed Universit y of 00:00:00 [facility] Varicella 2002-11-11 Completed University of (varivax)(chicken 00:00:00 [place] [facility] [place] [place]ox[place] [facility] DTAP 2002-11-11 Completed University of 00:00:00 [facility] Hep B, Adol or Pedi 2002-11-11 Completed Unive rsity of Dosage 00:00:00 [facility] HIB 4 Dose Schedule 2002-11-11 Completed Unive rsity of 00:00:00 [facility] Polio (IPV/OPV) 2002-11-11 Completed Universit y of 00:00:00 [facility] MMR 2002-11-11 Completed University of 00:00:00 [facility] Varicella 2002-11-11 Completed University of (varivax)(chicken 00:00:00 [place] [facility] [place] pox[place] [facility] DTAP 2002-11-11 Completed University of 00:00:00 [facility] HIB 4 Dose Schedule 2002-11-11 Completed Unive rsity of 00:00:00 [facility] Hep B, Adol or Pedi 2002-11-11 Completed Unive rsity of Dosage 00:00:00 [facility] MMR 2002-11-11 Completed University of 00:00:00 [facility] Polio (IPV/OPV) 2002-11-11 Completed Universit y of 00:00:00 [facility] Varicella 2002-11-11 Completed University of (varivax)(chicken 00:00:00 [place] [facility] [place] [place]ox[place] [facility] DTAP 2002-11-11 Completed University of 00:00:00 [facility] Hep B, Adol or Pedi 2002-11-11 Completed Unive rsity of Dosage 00:00:00 [facility] HIB 4 Dose Schedule 2002-11-11 Completed Unive rsity of 00:00:00 [facility] Polio (IPV/OPV) 2002-11-11 Completed Universit y of 00:00:00 [facility] MMR 2002-11-11 Completed University of 00:00:00 [facility] Varicella 2002-11-11 Completed University of (varivax)(chicken 00:00:00 [place] [facility] [place]ox[place] [facility] DTAP 2002-11-11 Completed University of 00:00:00 [facility] HIB 4 Dose Schedule 2002-11-11 Completed Unive rsity of 00:00:00 [facility] Hep B, Adol or Pedi 2002-11-11 Completed Unive rsity of Dosage 00:00:00 [facility] MMR 2002-11-11 Completed University of 00:00:00 [facility] Polio (IPV/OPV) 2002-11-11 Completed Universit y of 00:00:00 [facility] Varicella 2002-11-11 Completed University of (varivax)(chicken 00:00:00 [place] [facility] [place] [place]ox[place] [facility] DTAP 2002-11-11 Completed University of 00:00:00 [facility] Hep B, Adol or Pedi 2002-11-11 Completed Unive rsity of Dosage 00:00:00 [facility] HIB 4 Dose Schedule 2002-11-11 Completed Unive rsity of 00:00:00 [place] [facility] Polio (IPV/OPV) 2002-11-11 Completed Universit y of 00:00:00 [facility] MMR 2002-11-11 Completed University of 00:00:00 [facility] Varicella 2002-11-11 Completed University of (varivax)(chicken 00:00:00 [place] [facility] [place] [place]ox[place] [facility] DTAP 2002-11-11 Completed University of 00:00:00 [facility] Vital Signs Vital Name Observation Time Observation Value Comments Source Systolic blood 2022-01-17 03:00:00 119 mm[Hg] Univer sity of pressure [facility] Diastolic blood 2022-01-17 03:00:00 62 mm[Hg] Unive rsity of pressure [facility] Heart rate 2022-01-17 03:00:00 68 /min Universi ty of [facility] Respiratory rate 2022-01-17 03:00:00 16 /min [facility] in 2022-01-17 03:00:00 100 /min [facility] Arterial blood by [facility] Pulse oximetry Branch Body temperature 2022-01-17 02:03:00 37.28 Roselia Univ ersity of [facility] Body height 2022-01-17 02:03:00 165.1 cm Universi ty of [facility] Body weight 2022-01-17 02:03:00 90.719 kg Universi ty of [facility] BMI 2022-01-17 02:03:00 33.28 kg/m2 Universi ty of [facility] Systolic blood 2019-05-27 20:39:00 107 mm[Hg] Univer sity of [facility] Diastolic blood 2019-05-27 20:39:00 63 mm[Hg] Unive rsity of pressure [facility] Heart rate 2019-05-27 20:39:00 77 /min Universi ty of [facility] Body temperature 2019-05-27 20:39:00 36.94 [place] Univ ersity of [facility] Respiratory rate 2019-05-27 20:39:00 18 /min Univ ersity of [facility] Body height 2019-05-27 20:39:00 165.1 cm Universi ty of [facility] Body weight 2019-05-27 20:39:00 98.431 kg Universi ty of [facility] BMI 2019-05-27 20:39:00 36.11 kg/m2 Universi ty of [facility] Systolic blood 2019-05-27 20:39:00 107 mm[Hg] Univer sity of pressure [facility] Diastolic blood 2019-05-27 20:39:00 63 mm[Hg] Unive rsity of pressure [facility] Heart rate 2019-05-27 20:39:00 77 /min Universi ty of [facility] Body temperature 2019-05-27 20:39:00 36.94 Ros[place] Univ ersity of [facility] Respiratory rate 2019-05-27 20:39:00 18 /min Univ ersity of [place] [facility] Body height 2019-05-27 20:39:00 165.1 cm [facility] [place] [facility] Body weight 2019-05-27 20:39:00 98.431 kg [facility]i [facility] of [place] [facility] BMI 2019-05-27 20:39:00 36.11 kg/m2 Universi [facility] of [facility] Systolic blood 2019-05-17 21:39:00 114 mm[Hg] Univer sity of pressure [facility] Diastolic blood 2019-05-17 21:39:00 71 mm[Hg] Unive rsity of pressure [facility] Heart rate 2019-05-17 21:39:00 103 /min Universi ty of [place] [facility] Body temperature 2019-05-17 21:39:00 37.11 [place] Univ ersity of [facility] Respiratory rate 2019-05-17 21:39:00 18 /min Univ ersity of [facility] Body height 2019-05-17 21:39:00 165.1 [...] 2019-05-17 21:39:00 37.11 [place] Univ ers[facility] of [place] [facility] Respiratory rate 2019-05-17 21:39:00 18 /min Univ ersity of [facility] Body height 2019-05-17 21:39:00 165.1 cm [facility] [place] [facility] [place] Body weight 2019-05-17 21:39:00 100.154 kg Universi ty of [facility] BMI 2019-05-17 21:39:00 36.74 kg/m2 Universi ty of [facility] Systolic blood 2019-05-04 18:09:00 135 mm[Hg] Univer sity of [facility] Diastolic blood 2019-05-04 18:09:00 68 mm[Hg] Unive rsity of pressure [facility] Heart rate 2019-05-04 18:09:00 96 /min Universi ty of [facility] Body temperature 2019-05-04 18:09:00 36.78 Roselia [facility] Respiratory rate 2019-05-04 18:09:00 22 /min [facility] Oxygen saturation in 2019-05-04 18:09:00 100 /min [facility] Arterial blood by [facility] Pulse oximetry Branch Systolic blood 2019-04-29 21:00:00 127 mm[Hg] Univer sity of [facility] Diastolic blood 2019-04-29 21:00:00 68 mm[Hg] Unive rsity of [facility] Heart rate 2019-04-29 21:00:00 87 /min Universi ty of [facility] Body temperature 2019-04-29 21:00:00 36.39 Ros[place] [facility] Respiratory rate 2019-04-29 21:00:00 20 /min [facility] Body height 2019-04-29 21:00:00 165.1 cm [facility] [place] [facility] [place] Body weight 2019-04-29 21:00:00 98.431 kg Universi ty of [facility] BMI 2019-04-29 21:00:00 36.11 kg/m2 [facility] Procedures Procedure Date / Time Performing Clinician Source Performed LIPASE 2022-01-17 03:09:00 Yvonne [facility] COMP. METABOLIC PANEL 2022-01-17 03:09:00 Yvonne Siddiqi [facility] ([id number]) [facility] CBC WITH DIFF 2022-01-17 03:09:00 Yvonne S[facility]iq[facility] POCT TEST 2022-01-17 02:14:00 Abraham Weiner [facility] URINALYSIS 2022-01-17 02:10:00 Husam [facility] NOTICE OF PRIVACY 2022-01-17 01:36:28 Doctor Unassigned, No Univ [facility] CONSENT/REFUSAL FOR 2022-01-17 01:36:18 Doctor Unassigned, No [facility] TDAP (ADACEL) 2019-05-27 20:41:37 Neena [facility] IMMUNIZATION [facility] US ABDOMEN LIMITED 2019-05-17 22:45:16 [facility]ENEFITS 2019-05-17 22:12:10 Doctor Unassigned, No [facility] URINALYSIS 2019-05-04 18:55:00 Chasidy [facility] ADC CLC OR LCC ONLY - 2019-05-04 18:55:00 Chasidy Bolaños [facility] ADC ONLY - FERN TEST 2019-05-04 18:54:00 Chasidy Bolaños [facility] CONSENT/REFUSAL FOR 2019-05-04 17:47:16 Doctor Unassigned, No [facility] [place] DIAGNOSIS AND TREATMENT [facility] Encounters Start End Encounter Admission Attending Care Care Encounter Source Date/Time Date/Time Type Type Clinicians Facility Department ID 2022-08-02 Emergency [facility] HFD [id number] [place] - 05:16:57 [place] [facility] 2021-07-[address] [facility] [id number] [facility] 14:21:14 [id number] [facility] 2022-08-02 2022-08-02 Emergency E LEEROY DENG [id number] 04:26:00 11:34:00 2022-01-16 2022-01-17 Emergency X DEVANG [facility] ERT [id number] Univers 21:05:00 00:11:00 YVONNE [facility] 2022-01-16 2022-01-17 Emergency [facility] [id number] Univers 21:05:00 00:11:00 Yvonne POPE [id number] i [id number] [id number] [address] 2021-04-19 2021-04-19 Outpatient R POLO, [facility] [id number] Univers 13:15:00 13:15:00 HYU franco o f [facility] 2021-02-06 2021-02-06 Case Summer Belcher [id number] 00:00:00 00:00:00 Management Jennifer Harrell [id number] [place] [id number] [facility] 2021-02-06 2021-02-06 Summer Recinos [id number] Univers 00:00:00 00:00:00 Management Jennifer Harrell [id number] [id number] [phone] [address] 2020-12-12 2020-12-12 [facility] [id number] 00:00:00 00:00:00 Outreach [place] PRIMARY [id number] [place] [facility] [id number] PAVILLION [id number] [facility] 2020-12-12 2020-12-12 [facility] [id number] Univers 00:00:00 00:00:00 Outreach [place] PRIMARY [id number] i ty [id number] [id number] Ca dical [facility] Branch 2020-02-28 2020-02-28 Outpatient R NEENA [facility] [id number] Univers 15:00:00 15:00:00 ITZEL franco [facility] 2019-12-18 2019-12-18 Outpatient R NORMA [facility] [id number] Univers 17:30:00 17:30:00 KRISSY franco [facility] 2019-11-18 2019-11-18 Outpatient R NEENA [facility] [id number] Univers 14:30:00 14:30:00 ITZEL ity of [facility] 2019-05-27 2019-05-[address] [facility] [id number] 14:41:30 15:54:53 Itzel Pope [id number] Visit [place] [id number] Professio [id number] [address] 2019-05-27 2019-05-[address] [facility] [id number] Univers 14:41:30 15:54:53 Itzel Pope [id number] ity of Visit [place] [id number] [facility] Professio [phone] Ca dical [address] 2019-05-17 2019-05-17 [facility] [id number] [facility] 17:15:00 23:59:00 Encounter Itzel Pope [id number] ity of [place] [id number] [facility] s [place] [phone] [facility] [address] 2019-05-17 2019-05-17 Forecast Analyst 1, Adc Lab [facility] [id number] Univers 17:21:30 17:36:30 Visit Chasidy Bolaños [id number] ity of [place] [id number] [facility] [place] [phone] [facility] [address] 2019-05-17 2019-05-17 Office [facility] [id number] 15:55:01 16:56:25 Visit Itzel Pope [id number] [place] [id number] Professio [id number] [address] 2019-05-17 2019-05-17 Office [facility] [id number] Univers 15:55:01 16:56:25 Visit Itzel Pope [id number] i ty of [id number] [id number] [address] 2019-05-17 2019-05-17 Orders Doctor MAY [id number] Univers 00:00:00 00:00:00 Only Unassigned, ZACKERY [id number] ity of [facility] [id number] Juan as [phone] [facility] [address] 2019-05-05 2019-05-05 Telephone [facility] [id number] Univers 00:00:00 00:00:00 Itzel Pope [id number] i ty [id number] [phone] [address] 2019-05-04 2019-05-04 Forecast Analyst 1, Adc Lab [facility] [id number] Univers 15:07:01 15:22:01 Visit Chasidy Bolaños [id number] [place]y of [id number] [id number] [facility] [address] 2019-05-04 2019-05-04 Hospital Raisa Bolañosen [facility] [id number] Univers 12:48:00 14:57:00 Encounter Pedro Pope [id number] [place]y of [id number] [id number] [facility] [address] 2019-05-04 2019-05-04 Telephone [facility] [id number] Univers 00:00:00 00:00:00 Itzel Pope [id number] i ty [id number] [phone] [address] 2019-05-04 2019-05-04 Orders Doctor MAY [id number] Univers 00:00:00 00:00:00 Only Unassigned, ZACKERY [id number] ity of [facility] [id number] Juan as [id number] [facility] moiz 009 Branch 2019-04-30 2019-04-30 Case [place], [facility] [id number] [employer] 00:00:00 00:00:00 Management [employer] 350.1.13.10 ity of Surgical 4.2.7.2.686 Juan as Specialti [phone] Me dical es [address]illie 2019-04-29 2019-04-29 Routine Bolaños, Chasidy [facility] [id number] Univers 15:40:17 16:18:51 [facility] 350.1.13.10 ity of Visit Javed 4[place]2.7.2.686 [place] [phone] Me dical nal [address] Results Test Description Test Time Test Comments Results Result Comments Source COMP. METABOLIC PANEL (30954) 2022-01-17 03:31:19 Test Item Value Reference Range Interpretation Comme nts NA (test code = 0516881565) 139 mmol/L 135-145 K (test code = 4598203875) 4.2 mmol/L 3.5-5.0 CL (test code = 5982997850) 105 mmol/L 98-108 CO2 TOTAL (test code = 5569601152) 23 mmol/L 23-31 AGAP (test code = 1187211034) 2-16 BUN (test code = 9099078055) 9 mg/dL 7-23 GLUCOSE (test code = 4767907162) 94 mg/dL 70-110 CREATININE (test code = 0.61 mg/dL 0.50-1.04 5456798514) TOTAL BILI (test code = 0.9 mg/dL 0.1-1.5 7993763697) CALCIUM (test code = 1133036702) 9.4 mg/dL 8.6-10.6 T PROTEIN (test code = 6371729449) 8.3 g/dL 6.3-8.2 H ALBUMIN (test code = 4953904476) 4.7 g/dL 3.5-5.0 ALK PHOS (test code = 2434449776) 87 U/L 34-122 ALTv (test code = 1742-6) 11 U/L 5-35 AST(SGOT) (test code = 7026231467) 19 U/L 13-40 eGFR (test code = 2465429190) mL/min/1.73m2 TIERRA (test code = TIERRA) Association [...] tests). Lab Interpretation (test code = Abnormal 94702-3) [facility]19 Test Item Value Reference Range Interpretation Comments LIPASE (test code = 3448272565) 68 U/L 0-220 Lab Interpretation (test code = Normal 07804-1) [facility] WITH [id number] 03:28:58 Test Item Value Reference Range Interpretation Comments WBC (test code = See_Comment [Automated 3390-2) message] The sy stem which generated this [...] RDW-SD (test code = 43.8 fL 39.0-49.9 28047-9) RDW-CV (test code = 15.2 % 12.0-15.5 788-0) PLT (test code = See_Comment [Automated 777-3) message] The sy stem which generated this result transmitted reference range : 166 - 358 10*3/ ?L. The reference r suzi was not used to interpret this result as normal/abnormal . MPV (test code = 11.3 fL 9.5-12.9 84780-6) NRBC/100 WBC (test See_Comment [Automat ed code = 9756052993) message] The system which generated this result transmitted reference range : 0.0 - 10.0 /100 WBCs. The refer ence range was not u sed to interpret th is result as normal/abnormal . NRBC x10^3 (test code <0.01 See_Comment [Auto mated = 6150939714) message] The s ystem which generated this result transmitted reference range : 10*3/?L. The reference range was not used to interpret this result as normal/abnormal . GRAN MAT (NEUT) % 71.7 % (test code = 770-8) IMM GRAN % (test code 0.20 % = 9931182178) LYMPH % (test code = 22.5 % 736-9) MONO % (test code = 4.2 % 5905-5) EOS % (test code = 0.8 % 713-8) BASO % (test code = 0.6 % 706-2) GRAN MAT x10^3(ANC) 6.26 10*3/uL 1.88-7.09 (test code = 2654733833) IMM GRAN x10^3 (test <0.03 0.00-0.06 code = 3469406913) LYMPH x10^3 (test code 1.96 10*3/uL 1.32-3.29 = 731-0) MONO x10^3 (test code 0.37 10*3/uL 0.33-0.92 = 742-7) EOS x10^3 (test code = 0.07 10*3/uL 0.03-0.39 711-2) BASO x10^3 (test code 0.05 10*3/uL 0.01-0.07 = 704-7) Lab Interpretation Abnormal (test code = 89763-3) [facility] [id number] 02:14:00 Test Item Value Reference Range Interpretation Comments POCT PREG (test code = 1605) negative On board controls acceptable with present C Line (test code = 3574) POCT PREG LOT # (test code = 3575) [id number] POCT PREG TEST DATE (test 06/21/2023 code = 3576) Lab Interpretation (test code = Normal 88014-1) [facility] ABDOMEN [id number] 23:14:22 Cholelithiasis with no evidence of acute [...] Cholelithiasis with no evidence of acute cholecystitis.Mild hepatomegaly.I, Sarita Hernandez MD., have reviewed this study and agree with theabove report.[facility]2019-08-13 19:31:00 Test Item Value Reference Range Interpretation Comments APPEARANCE (test code Slightly Cloudy Clear A = 7817714337) COLOR (test code = Yellow Yellow 1955339755) PH (test code = 4.8-8.0 7360723743) SP GRAVITY (test code <=1.005 1.003-1.030 = 0558334227) GLU U QUAL (test code Negative Negative = 7785633666) BLOOD (test code = Negative Negative 7551016428) KETONES (test code = Negative Negative 7673950081) PROTEIN (test code = Negative Negative 2887-8) UROBILIN (test code = 0.2 mg/dL See_Comment [Auto mated 4482743519) message] The system which generated this result transmit refugio reference range : 0-1.0 mg/dL. Th e reference range was not used to interpret this result as normal/abnormal . BILIRUBIN (test code Negative Negative = 2602095523) NITRITE (test code = Negative Negative 1987925797) LEUK SUMMER (test code Large Negative A = 1494733301) RBC/HPF (test code = See_Comment [Autom ated 0831398449) message] The system which generated this result transmit refugio reference range : 0 - 3 HPF. The reference range was not used to interpret this result as normal/abnormal . WBC/HPF (test code = See_Comment H [Autom ated 2086457582) message] The system which generated this result transmit refugio reference range : 0 - 5 HPF. The reference range was not used to interpret this result as normal/abnormal . BACTERIA (test code = Moderate Negative A 0531192627) SQ EPITH (test code = HPF 4787668626) Lab Interpretation Abnormal (test code = 42906-6) [facility] OR [facility] ONLY - WET [id number] 19:28:00 Test Item Value Reference Range Interpretation Comments Wet Prep (test code No Trichomonas vaginalis = 5818038540) present [facility] ONLY - FERN [id number] 19:24:00 Test Item Value Reference Range Interpretation Comments Fern Test (test code = 3949731720) Negative [facility]"
--- NOTE | 2022-11-04 20:16 | ER ---
Nurse's Notes [facility] Name: Arina Valdes Age: 22 yrs Sex: Female : 2000 Arrival Date: 11/04/2022 Time: 18:55 Bed Waiting Private MD: Diagnosis: ED Course: 11/04 18:55 Patient arrived in ED. as 20:00 Patient's name was called from ER lobby. No response. Unable to locate patient. Will jh5 disposition as left without being seen by a provider. 20:05 Patient's name was called from ER lobby. No response. Unable to locate patient. Will jh5 disposition as left without being seen by a provider. 20:06 Patient's name was called from ER lobby. No response. Unable to locate patient. Will jh5 disposition as left without being seen by a provider. 20:10 Patient's name was called from ER lobby. No response. Unable to locate patient. Will jh5 disposition as left without being seen by a provider. Administered Medications: No medications were administered Outcome: 20:16 Patient left the ED. kl Signatures: Sarita Matias, RN RN Alyson Breen Jessica RN RN jh5
== END 2022-11-04 20:16 | disposition left against medical advice (07) ==
LOC: ER 18:53
DX: Z02.9 Encounter for administrative examinations, unspecified (principal)

== ENCOUNTER 2023-01-30 09:12 | Emergency (ER) | payer SELFPAY ==
--- OUTSIDE RECORDS SUMMARY | 2023-01-30 09:18 | XMS REPORT | Continuity of Care Document ---
:2000 Author Organization [facility] t Address [address] [facility] [address] [place] [address] Care Team Providers Name Role Phone Chasidy Bolaños MD Primary Care Physician LEEROY DENG Attending Clinician Unavailable YVONNE SIDDIQI Attending Clinician Unavailable Yvonne Rodriguez Attending Clinician HUY CUELLAR Attending Clinician Unavailable Jennifer Belchre LMSW Attending Clinician Unavailable Broderick Melton DO Attending Clinician ITZEL CHAUDHARY Attending Clinician Unavailable KRISSY GREEN Attending Clinician Unavailable Itzel Chaudhary PA-C Attending Clinician 1, [facility] Attending Clinician Unavailable Chasidy Bolaños MD Attending Clinician Doctor Unassigned, [place] Attending Clinician Unavailable Chasidy Bolaños MD Admitting Clinician Payers Payer Name Policy Type Policy Number Effective Date Expiration Date Leno trammell [facility] KRYSTIN [id number] 2018 00:00:00 Problems Condition Condition Condition Status Onset Resolution Last Treating Co mments Source Name Details Category Date Date Treatment Clinician Date Nexplanon Nexplanon Disease Active 2018-09 Uni vers insertion insertion 2-16 ity of 00:00: [place] [facility] Nexplanon Nexplanon Disease Active 2018-[address] 2-16 ity of 00:00: [place] [address] [facility] [place] Encounter Encounter Disease Active 2018-09 Uni vers for female for female 2-16 it y of 00:00: [place] control control [facility] Anemia, Anemia, Disease Active 2018-09 Univers antepartum antepartum 1-12 it y of , third , third 00:00: [place] trimester trimester 00 [facility] Obesity Obesity Disease Active Univers (BMI (BMI 4-15 ity of 30-39.9) 30-39.9) 00:00: [place] [facility] History of History of Disease Active U ajit depression depression 4-15 it y of 00:00: [place] [address] [facility] [place] History of History of Disease Active U nivers anxiety anxiety 4-15 ity of 00:00: [address] Allergies, Adverse Reactions, Alerts Allergy Allergy Status Severity Reaction(s) Onset Inactive Treating Comm ents Source Name Type Date Date Clinician NO KNOWN Drug Active Univers ALLERGIE Class ity of S [facility] Social History Social Habit Start Date Stop Date Quantity Comments Source ASSERTION 2018-11-14 University of 00:00:00 [facility] History of Cigarette Smoker Universi ty of tobacco use [facility] Exposure to 2022-01-06 2022-01-16 Unable to assess Univers ity of SARS-CoV-2 00:00:00 20:33:00 [facility] (event) [place] Alcohol intake 2022-01-16 2022-01-16 Current University of 00:00:00 00:00:00 non-drinker of [facility] alcohol (finding) Branch Tobacco Comment 2019-01-04 2019-01-04 fiance smokes Univer sity of 00:00:00 00:00:00 outside [facility] Tobacco use and 2015-04-13 2015-04-13 Never used Universit y of exposure 00:00:00 00:00:00 [facility] Sex Assigned At [birth year] Universit y of 00:00:00 00:00:00 [facility] Smoking Status Start Date Stop Date Source Never smoker [facility] Medications Ordered Filled Start Stop Current [...] 01/16/22 at 2300, ABHAY ondansetron 0 Yes [id number] 4mg Take 1 Univers 4 mg -27 tablet by ity of disintegrat 00:00: mouth [place] ing tablet 00 every 8 Medica l (eight) Branch hours as needed for Nausea and Vomiting (N/V). azithromyci 2020-0 Yes [id number] 250mg Take 1 Univers n 250 mg 3-28 tablet by ity of tablet 00:00: mouth [place] 00 daily. Medical Take 500 Branch mg day 1, then 250 mg days 2 to 5. azithromyci 2020-0 Yes [id number] 250mg Take 1 Univers n 250 mg 3-28 tablet by ity of tablet 00:00: mouth [place] 00 daily. Medical Take 500 Branch mg day 1, then 250 mg days 2 to 5. azithromyci 2020-0 Yes [id number] 250mg Take 1 Univers n 250 mg 3-28 tablet by ity of tablet 00:00: mouth [place] 00 daily. Medical Take 500 Branch mg day 1, then 250 mg days 2 to 5. Nitrofurant 2019- No [id number] 100mg Take 1 Univers oin&Nit. 05-04- capsule by ity of Macrocryst 00:00: 04:59 mouth 2 [place] as 100 mg 00 :00 (two) Medical capsule times Branch daily for 7 days. metroNIDAZO 2018- Yes [id number] 500mg Take 1 Univers LE 500 mg 8-09 tablet by ity o f tablet 00:00: mouth [place] 00 every 12 Medical (twelve) Branch hours. metroNIDAZO 2018- Yes [id number] 500mg Take 1 Univers LE 500 mg 8-09 tablet by ity o f tablet 00:00: mouth [place] 00 every 12 Medical (twelve) Branch hours. metroNIDAZO 2018- Yes [id number] 500mg Take 1 Univers LE 500 mg 8-09 tablet by ity o f tablet 00:00: mouth [place] 00 every 12 Medical (twelve) Branch hours. metroNIDAZO 2019- No [id number] 500mg Take 1 Univers LE 500 mg 8-05 30- tablet by ity of tablet 00:00: 00:00 mouth [place] 00 :00 every 12 Medical (twelve) Branch hours. fluconazole 2018- Yes [id number] 200mg Take 1 Univers (DIFLUCAN) 8-08 tablet by ity of 200 mg 00:00: mouth [place] tablet 00 daily. Medical Branch fluconazole 2018- Yes [id number] 200mg Take 1 Univers (DIFLUCAN) 8-08 tablet by ity of 200 mg 00:00: mouth [place] tablet 00 daily. Medical Branch fluconazole Yes [id number] 200mg Take 1 Univers (DIFLUCAN) 8-08 tablet by ity of 200 mg 00:00: mouth [place] tablet 00 daily. Medical Branch fluconazole 2018- Yes [id number] 200mg Take 1 Univers (DIFLUCAN) 8-08 tablet by ity of 200 mg 00:00: mouth [place] tablet 00 daily. Medical Branch fluconazole 2018-0 2019- No [id number] 200mg Take 1 Univers (DIFLUCAN) 8-08 -13 tablet by ity of 200 mg 00:00: 00:00 mouth [place] tablet 00 :00 daily. Medical Branch [id number], 2018- Yes [id number] Take 1 Univers carb,glu-FA 4-15 9106 TAB-CAP/M2 it y of -dss-dha 00:00: by mouth [place] (CITRANATAL 00 daily. Medica l DHA, ALGAL Branch OIL,) 27 mg iron-1 mg -50 mg-250 mg Cmpk [id number], 2019-0 Yes [id number] Take 1 Univers carb,glu-FA 4-15 9106 TAB-CAP/M2 it y of -dss-dha 00:00: by mouth [place] (CITRANATAL 00 daily. Medica l DHA, ALGAL Branch OIL,) 27 mg iron-1 mg -50 mg-250 mg Cmpk [id number], 2019-0 Yes [id number] Take 1 Univers carb,glu-FA 4-15 9106 TAB-CAP/M2 it y of -dss-dha 00:00: by mouth [place] (CITRANATAL 00 daily. Medica l DHA, ALGAL Branch OIL,) 27 mg iron-1 mg -50 mg-250 mg Cmpk [id number], 2018-0 Yes [id number] Take 1 Univers carb,glu-FA 4-15 9106 TAB-CAP/M2 it y of -dss-dha 00:00: by mouth [place] (CITRANATAL 00 daily. Medica l DHA, ALGAL Branch OIL,) 27 mg iron-1 mg -50 mg-250 mg Cmpk [id number], 2018-0 Yes [id number] Take 1 Univers carb,glu-FA 4-15 9106 TAB-CAP/M2 it y of -dss-dha 00:00: by mouth [place] (CITRANATAL 00 daily. Medica l DHA, ALGAL Branch OIL,) 27 mg iron-1 mg -50 mg-250 mg Cmpk [id number], 2019-0 Yes [id number] Take 1 Univers carb,glu-FA 4-15 9106 TAB-CAP/M2 it y of -dss-dha 00:00: by mouth [place] (CITRANATAL 00 daily. Medica l DHA, ALGAL Branch OIL,) 27 mg iron-1 mg -50 mg-250 mg Cmpk [id number], 2019-0 Yes [id number] Take 1 Univers carb,glu-FA 4-15 9106 TAB-CAP/M2 it y of -dss-dha 00:00: by mouth [place] (CITRANATAL 00 daily. Medica l DHA, ALGAL Branch OIL,) 27 mg iron-1 mg -50 mg-250 mg Cmpk [id number], 2019-0 Yes [id number] Take 1 Univers carb,glu-FA 4-15 9106 TAB-CAP/M2 it y of -dss-dha 00:00: by mouth [place] (CITRANATAL 00 daily. Medica l DHA, ALGAL Branch OIL,) 27 mg iron-1 mg -50 mg-250 mg Cmpk [id number], 2019-0 Yes [id number] Take 1 Univers carb,glu-FA 4-15 9106 TAB-CAP/M2 it y of -dss-dha 00:00: by mouth [place] (CITRANATAL 00 daily. Medica l DHA, ALGAL Branch OIL,) 27 mg iron-1 mg -50 mg-250 mg Cmpk [id number], 2018-0 Yes [id number] Take 1 Univers carb,glu-FA 4-15 9106 TAB-CAP/M2 it y of -dss-dha 00:00: by mouth [place] (CITRANATAL 00 daily. Medica l DHA, ALGAL Branch OIL,) 27 mg iron-1 mg -50 mg-250 mg Cmpk [id number], 2018-0 Yes [id number] Take 1 Univers carb,glu-FA 4-15 9106 TAB-CAP/M2 it y of -dss-dha 00:00: by mouth [place] (CITRANATAL 00 daily. Medica l DHA, ALGAL Branch OIL,) 27 mg iron-1 mg -50 mg-250 mg Cmpk [id number], 2018-0 Yes [id number] Take 1 Univers carb,glu-FA 4-15 9106 TAB-CAP/M2 it y of -dss-dha 00:00: by mouth [place] (CITRANATAL 00 daily. Medica l DHA, ALGAL Branch OIL,) 27 mg iron-1 mg -50 mg-250 mg Cmpk [id number], 2018- Yes [id number] Take 1 Univers carb,glu-FA 4-15 9106 TAB-CAP/M2 [...] VACCINE 2019-04-01 Completed Uni versity of 00:00:00 [facility] TDAP (ADACEL) VACCINE 2019-04-01 Completed Uni versity of 00:00:00 [facility] TDAP (ADACEL) VACCINE 2019-04-01 Completed Uni versity of 00:00:00 [facility] Influenza Virus 2019-01-04 Completed Universit [...] Branch HPV 2015-04-13 Completed University of 00:00:00 [facility] Meningococcal 2015-04-13 Completed University of Polysaccharide 00:00:00 [place] [facility] (groups A, C, Y and Branc h W-135) conjugate vaccine (MCV4P) TDAP (ADACEL) VACCINE 2015-04-13 Completed Uni versity of 00:00:00 [facility] HPV 2015-04-13 Completed University of 00:00:00 [facility] Meningococcal 2015-04-13 Completed University of Polysaccharide 00:00:00 [place] [facility] (groups A, C, Y and Branc h W-135) conjugate vaccine (MCV4P) TDAP (ADACEL) VACCINE 2015-04-13 Completed Uni versity of 00:00:00 [facility] HPV 2015-04-13 Completed University of 00:00:00 [facility] Meningococcal 2015-04-13 Completed University of Polysaccharide 00:00:00 [place] [facility] (groups A, C, Y and Branc h W-135) conjugate vaccine (MCV4P) TDAP (ADACEL) VACCINE 2015-04-13 Completed Uni versity of 00:00:00 [facility] HPV 2015-04-13 Completed University of 00:00:00 [facility] Meningococcal 2015-04-13 Completed University of Polysaccharide 00:00:00 [place] [facility] (groups A, C, Y and Branc h W-135) conjugate vaccine (MCV4P) TDAP (ADACEL) VACCINE 2015-04-13 Completed Uni versity of 00:00:00 [facility] HPV 2015-04-13 Completed University of 00:00:00 [facility] Meningococcal 2015-04-13 Completed University of Polysaccharide 00:00:00 [place] [facility] (groups A, C, Y and Branc h W-135) conjugate vaccine (MCV4P) TDAP (ADACEL) VACCINE 2015-04-13 Completed Uni versity of 00:00:00 [facility] HPV 2015-04-13 Completed University of 00:00:00 [facility] Meningococcal 2015-04-13 Completed University of Polysaccharide 00:00:00 [place] Medi [facility] (groups A, C, Y and Branc h W-135) conjugate vaccine (MCV4P) TDAP (ADACEL) VACCINE 2015-04-13 Completed Uni versity of 00:00:00 [facility] HPV 2015-04-13 Completed University of 00:00:00 [facility] Meningococcal 2015-04-13 Completed University of Polysaccharide 00:00:00 [place] Medi [facility] (groups A, C, Y and Branc h W-135) conjugate vaccine (MCV4P) TDAP (ADACEL) VACCINE 2015-04-13 Completed Uni versity of 00:00:00 [facility] HPV 2015-04-13 Completed University of 00:00:00 [facility] Meningococcal 2015-04-13 Completed University of Polysaccharide 00:00:00 [place] Medi [facility] (groups A, C, Y and Branc h W-135) conjugate vaccine (MCV4P) TDAP (ADACEL) VACCINE 2015-04-13 Completed Uni versity of 00:00:00 [facility] HPV 2015-04-13 Completed University of 00:00:00 [facility] Meningococcal 2015-04-13 Completed University of Polysaccharide 00:00:00 [place] Medi [facility] (groups A, C, Y and Branc h W-135) conjugate vaccine (MCV4P) TDAP (ADACEL) VACCINE 2015-04-13 Completed Uni versity of 00:00:00 [facility] HPV 2015-04-13 Completed University of 00:00:00 [facility] Meningococcal 2015-04-13 Completed University of Polysaccharide 00:00:00 [place] [facility]i [facility] (groups A, C, Y and Branc h W-135) conjugate vaccine (MCV4P) TDAP (ADACEL) VACCINE 2015-04-13 Completed Uni versity of 00:00:00 [facility] HPV 2015-04-13 Completed University of 00:00:00 [facility] Meningococcal 2015-04-13 Completed University of Polysaccharide 00:00:00 [place] [facility] (groups A, C, Y and Branc h W-135) conjugate vaccine (MCV4P) HPV 2015-04-13 Completed University of 00:00:00 [facility] Meningococcal 2015-04-13 Completed University of Polysaccharide 00:00:00 [place] [facility] (groups A, C, Y and Branc h W-135) conjugate vaccine (MCV4P) TDAP (ADACEL) VACCINE 2015-04-13 Completed Uni versity of 00:00:00 [facility] TDAP (ADACEL) VACCINE 2015-04-13 Completed Uni versity of 00:00:00 [facility] HPV 2015-04-13 Completed University of 00:00:00 [facility] Meningococcal 2015-04-13 Completed University of Polysaccharide 00:00:00 [place] [facility] (groups A, C, Y and Branc h W-135) conjugate vaccine (MCV4P) TDAP (ADACEL) VACCINE 2015-04-13 Completed Uni versity of 00:00:00 [facility] HPV 2015-04-13 Completed University of 00:00:00 [facility] Meningococcal 2015-04-13 Completed University of Polysaccharide 00:00:00 [place] [facility] (groups A, C, Y and Branc h W-135) conjugate vaccine (MCV4P) TDAP (ADACEL) VACCINE 2015-04-13 Completed Uni versity of 00:00:00 [facility] HPV 2015-04-13 Completed University of 00:00:00 [facility] Meningococcal 2015-04-13 Completed University of Polysaccharide 00:00:00 [place] [facility] (groups A, C, Y and Branc h W-135) conjugate vaccine (MCV4P) TDAP (ADACEL) VACCINE 2015-04-13 Completed Uni versity of 00:00:00 [facility] HPV 2015-04-13 Completed University of 00:00:00 [facility] Meningococcal 2015-04-13 Completed University of Polysaccharide 00:00:00 [place] [facility] (groups A, C, Y and Branc h W-135) conjugate vaccine (MCV4P) TDAP (ADACEL) VACCINE 2015-04-13 Completed Uni versity of 00:00:00 [facility] HPV 2012-06-29 Completed University of 00:00:00 [facility] HPV 2012-06-29 Completed University of 00:00:00 [facility] HPV 2012-06-29 Completed University of 00:00:00 [facility] Meningococcal 2009-12-12 Completed University of Polysaccharide 00:00:00 [place] [facility] (groups A, C, Y and Branc h W-135) conjugate vaccine (MCV4P) Varicella 2009-12-12 Completed University of (varivax)(chicken 00:00:00 [place] [facility] pox) Branch Meningococcal 2009-12-12 Completed University of Polysaccharide 00:00:00 [place] [facility] (groups A, C, Y and Branc h W-135) conjugate vaccine (MCV4P) Varicella 2009-12-12 Completed University of (varivax)(chicken 00:00:00 [place] M [facility]ical pox) Branch Meningococcal 2009-12-12 Completed University of Polysaccharide 00:00:00 [facility] moiz (groups A, C, Y and Branc h W-135) conjugate vaccine (MCV4P) Varicella 2009-12-12 Completed University of (varivax)(chicken 00:00:00 [place] M [facility]ical pox) Branch HIB 4 Dose Schedule 2002-11-11 Completed Unive rsity of 00:00:00 [facility] Hep B, Adol or Pedi 2002-11-11 Completed Unive rsity of Dosage 00:00:00 [facility] MMR 2002-11-11 Completed University of 00:00:00 [facility] Polio (IPV/OPV) 2002-11-11 Completed Universit y of 00:00:00 [facility] Varicella 2002-11-11 Completed University of (varivax)(chicken 00:00:00 [place] M [facility] pox) Branch DTAP 2002-11-11 Completed University of 00:00:00 [facility] Hep B, Adol or Pedi 2002-11-11 Completed Unive rsity of Dosage 00:00:00 [facility] HIB 4 Dose Schedule 2002-11-11 Completed Unive rsity of 00:00:00 [facility] Polio (IPV/OPV) 2002-11-11 Completed Universit y of 00:00:00 [facility] MMR 2002-11-11 Completed University of 00:00:00 [facility] Varicella 2002-11-11 Completed University of (varivax)(chicken 00:00:00 [place] M [facility] pox) Branch DTAP 2002-11-11 Completed University of 00:00:00 [facility] HIB 4 Dose Schedule 2002-11-11 Completed Unive rsity of 00:00:00 [facility] Hep B, Adol or Pedi 2002-11-11 Completed Unive rsity of Dosage 00:00:00 [facility] MMR 2002-11-11 Completed University of 00:00:00 [facility] Polio (IPV/OPV) 2002-11-11 Completed Universit y of 00:00:00 [facility] Varicella 2002-11-11 Completed University of (varivax)(chicken 00:00:00 [place] M edical pox) Branch DTAP 2002-11-11 Completed University of 00:00:00 [facility] Hep B, Adol or Pedi 2002-11-11 Completed Unive rsity of Dosage 00:00:00 [facility] HIB 4 Dose Schedule 2002-11-11 Completed Unive rsity of 00:00:00 [facility] Polio (IPV/OPV) 2002-11-11 Completed Universit y of 00:00:00 [facility] MMR 2002-11-11 Completed University of 00:00:00 [facility] Varicella 2002-11-11 Completed University of (varivax)(chicken 00:00:00 [place] [facility] pox) Branch DTAP 2002-11-11 Completed University of 00:00:00 [facility] HIB 4 Dose Schedule 2002-11-11 Completed Unive rsity of 00:00:00 [facility] Hep B, Adol or Pedi 2002-11-11 Completed Unive rsity of Dosage 00:00:00 [facility] MMR 2002-11-11 Completed University of 00:00:00 [facility] Polio (IPV/OPV) 2002-11-11 Completed Universit y of 00:00:00 [facility] Varicella 2002-11-11 Completed University of (varivax)(chicken 00:00:00 [place] [facility] pox) Branch DTAP 2002-11-11 Completed University of 00:00:00 [facility] Hep B, Adol or Pedi 2002-11-11 Completed Unive rsity of Dosage 00:00:00 [facility] HIB 4 Dose Schedule 2002-11-11 Completed Unive rsity of 00:00:00 [facility] Polio (IPV/OPV) 2002-11-11 Completed Universit y of 00:00:00 [facility] MMR 2002-11-11 Completed University of 00:00:00 [facility] Varicella 2002-11-11 Completed University of (varivax)(chicken 00:00:00 [place] [facility] pox) Branch DTAP 2002-11-11 Completed University of 00:00:00 [facility] HIB 4 Dose Schedule 2002-11-11 Completed Unive rsity of 00:00:00 [facility] Hep B, Adol or Pedi 2002-11-11 Completed Unive rsity of Dosage 00:00:00 [facility] MMR 2002-11-11 Completed University of 00:00:00 [facility] Polio (IPV/OPV) 2002-11-11 Completed Universit y of 00:00:00 [facility] Varicella 2002-11-11 Completed University of (varivax)(chicken 00:00:00 [place] M edical pox) Branch DTAP 2002-11-11 Completed University of 00:00:00 [facility] Hep B, Adol or Pedi 2002-11-11 Completed Unive rsity of Dosage 00:00:00 [facility] HIB 4 Dose Schedule 2002-11-11 Completed Unive rsity of 00:00:00 [facility] Polio (IPV/OPV) 2002-11-11 Completed Universit y of 00:00:00 [facility] MMR 2002-11-11 Completed University of 00:00:00 [facility] Varicella 2002-11-11 Completed University of (varivax)(chicken 00:00:00 [place] M [facility]ical pox) Branch DTAP 2002-11-11 Completed University of 00:00:00 [facility] HIB 4 Dose Schedule 2002-11-11 Completed Unive rsity of 00:00:00 [facility] Hep B, Adol or Pedi 2002-11-11 Completed Unive rsity of Dosage 00:00:00 [facility] MMR 2002-11-11 Completed University of 00:00:00 [facility] Polio (IPV/OPV) 2002-11-11 Completed Universit y of 00:00:00 [facility] Varicella 2002-11-11 Completed University of (varivax)(chicken 00:00:00 [place] M edical pox) Branch DTAP 2002-11-11 Completed University of 00:00:00 [facility] Hep B, Adol or Pedi 2002-11-11 Completed Unive rsity of Dosage 00:00:00 [facility] HIB 4 Dose Schedule 2002-11-11 Completed Unive rsity of 00:00:00 [facility] Polio (IPV/OPV) 2002-11-11 Completed Universit y of 00:00:00 [facility] MMR 2002-11-11 Completed University of 00:00:00 [facility] Varicella 2002-11-11 Completed University of (varivax)(chicken 00:00:00 [place] [facility] pox) Branch DTAP 2002-11-11 Completed University of 00:00:00 [facility] HIB 4 Dose Schedule 2002-11-11 Completed Unive rsity of 00:00:00 [facility] Hep B, Adol or Pedi 2002-11-11 Completed Unive rsity of Dosage 00:00:00 [facility] MMR 2002-11-11 Completed University of 00:00:00 [facility] Polio (IPV/OPV) 2002-11-11 Completed Universit y of 00:00:00 [facility] Varicella 2002-11-11 Completed University of (varivax)(chicken 00:00:00 [place] M [facility] pox) Branch DTAP 2002-11-11 Completed University of 00:00:00 [facility] Hep B, Adol or Pedi 2002-11-11 Completed Unive rsity of Dosage 00:00:00 [facility] HIB 4 Dose Schedule 2002-11-11 Completed Unive rsity of 00:00:00 [facility] Polio (IPV/OPV) 2002-11-11 Completed Universit y of 00:00:00 [facility] MMR 2002-11-11 Completed University of 00:00:00 [facility] Varicella 2002-11-11 Completed University of (varivax)(chicken 00:00:00 [place] M edical pox) Branch DTAP 2002-11-11 Completed University of 00:00:00 [facility] DTAP 2002-11-11 Completed University of 00:00:00 [facility] HIB 4 Dose Schedule 2002-11-11 Completed Unive rsity of 00:00:00 [facility] HIB 4 Dose Schedule 2002-11-11 Completed Unive rsity of 00:00:00 [facility] Hep B, Adol or Pedi 2002-11-11 Completed Unive rsity of Dosage 00:00:00 [facility] MMR 2002-11-11 Completed University of 00:00:00 [facility] Polio (IPV/OPV) 2002-11-11 Completed Universit y of 00:00:00 [facility] Varicella 2002-11-11 Completed University of (varivax)(chicken 00:00:00 [place] M edical pox) Branch DTAP 2002-11-11 Completed University of 00:00:00 [facility] Hep B, Adol or Pedi 2002-11-11 Completed Unive rsity of Dosage 00:00:00 [facility] HIB 4 Dose Schedule 2002-11-11 Completed Unive rsity of 00:00:00 [facility] Polio (IPV/OPV) 2002-11-11 Completed Universit y of 00:00:00 [facility] MMR 2002-11-11 Completed University of 00:00:00 [facility] Hep B, Adol or Pedi 2002-11-11 Completed Unive rsity of Dosage 00:00:00 [facility] Varicella 2002-11-11 Completed University of (varivax)(chicken 00:00:00 [place] M [facility] pox) Branch MMR 2002-11-11 Completed University of 00:00:00 [facility] DTAP 2002-11-11 Completed University of 00:00:00 [facility] HIB 4 Dose Schedule 2002-11-11 Completed Unive rsity of 00:00:00 [facility] Hep B, Adol or Pedi 2002-11-11 Completed Unive rsity of Dosage 00:00:00 [facility] MMR 2002-11-11 Completed University of 00:00:00 [facility] Polio (IPV/OPV) 2002-11-11 Completed Universit y of 00:00:00 [facility] Varicella 2002-11-11 Completed University of (varivax)(chicken 00:00:00 [place] M [facility] pox) Branch Polio (IPV/OPV) 2002-11-11 Completed Universit y of 00:00:00 [facility] DTAP 2002-11-11 Completed University of 00:00:00 [facility] Hep B, Adol or Pedi 2002-11-11 Completed Unive rsity of Dosage 00:00:00 [facility] HIB 4 Dose Schedule 2002-11-11 Completed Unive rsity of 00:00:00 [facility] Polio (IPV/OPV) 2002-11-11 Completed Universit y of 00:00:00 [facility] MMR 2002-11-11 Completed University of 00:00:00 [facility] Varicella 2002-11-11 Completed University of (varivax)(chicken 00:00:00 [place] [facility] Varicella 2002-11-11 Completed University of (varivax)(chicken 00:00:00 [place] [facility] DTAP 2002-11-11 Completed University of 00:00:00 [facility] DTAP 2002-11-11 Completed University of 00:00:00 [facility] HIB 4 Dose Schedule 2002-11-11 Completed Unive rsity of 00:00:00 [facility] Hep B, Adol or Pedi 2002-11-11 Completed Unive rsity of Dosage 00:00:00 [facility] MMR 2002-11-11 Completed University of 00:00:00 [facility] Polio (IPV/OPV) 2002-11-11 Completed Universit y of 00:00:00 [facility] Varicella 2002-11-11 Completed University of (varivax)(chicken 00:00:00 [place] [facility] DTAP 2002-11-11 Completed University of 00:00:00 [facility] Hep B, Adol or Pedi 2002-11-11 Completed Unive rsity of Dosage 00:00:00 [facility] HIB 4 Dose Schedule 2002-11-11 Completed Unive rsity of 00:00:00 [facility] Hep B, Adol or Pedi 2002-11-11 Completed Unive rsity of Dosage 00:00:00 [facility] Polio (IPV/OPV) 2002-11-11 Completed Universit y of 00:00:00 [facility] MMR 2002-11-11 Completed University of 00:00:00 [facility] Varicella 2002-11-11 Completed University of (varivax)(chicken 00:00:00 [place] [facility] HIB 4 Dose Schedule 2002-11-11 Completed Unive rsity of 00:00:00 [facility] DTAP 2002-11-11 Completed University of 00:00:00 [facility] HIB 4 Dose Schedule 2002-11-11 Completed Unive rsity of 00:00:00 [facility] Hep B, Adol or Pedi 2002-11-11 Completed Unive rsity of Dosage 00:00:00 [facility] MMR 2002-11-11 Completed University of 00:00:00 [facility] Polio (IPV/OPV) 2002-11-11 Completed Universit y of 00:00:00 [facility] Varicella 2002-11-11 Completed University of (varivax)(chicken 00:00:00 [place] [facility] Polio (IPV/OPV) 2002-11-11 Completed Universit y of 00:00:00 [facility] DTAP 2002-11-11 Completed University of 00:00:00 [facility] Hep B, Adol or Pedi 2002-11-11 Completed Unive rsity of Dosage 00:00:00 [facility] HIB 4 Dose Schedule 2002-11-11 Completed Unive rsity of 00:00:00 [facility] Polio (IPV/OPV) 2002-11-11 Completed Universit y of 00:00:00 [facility] MMR 2002-11-11 Completed University of 00:00:00 [facility] Varicella 2002-11-11 Completed University of (varivax)(chicken 00:00:00 [place] [facility]ox[facility] MMR 2002-11-11 Completed University of 00:00:00 [facility] Varicella 2002-11-11 Completed University of (varivax)(chicken 00:00:00 [place] [facility] DTAP 2002-11-11 Completed University of 00:00:00 [facility] HIB 4 Dose Schedule 2002-11-11 Completed Unive rsity of 00:00:00 [facility] Hep B, Adol or Pedi 2002-11-11 Completed Unive rsity of Dosage 00:00:00 [facility] MMR 2002-11-11 Completed University of 00:00:00 [facility] Polio (IPV/OPV) 2002-11-11 Completed Universit y of 00:00:00 [facility] Varicella 2002-11-11 Completed University of (varivax)(chicken 00:00:00 [place] [facility]ox[facility] DTAP 2002-11-11 Completed University of 00:00:00 [facility] Hep B, Adol or Pedi 2002-11-11 Completed Unive rsity of Dosage 00:00:00 [facility] HIB 4 Dose Schedule 2002-11-11 Completed Unive rsity of 00:00:00 [facility] Polio (IPV/OPV) 2002-11-11 Completed Universit y of 00:00:00 [facility] MMR 2002-11-11 Completed University of 00:00:00 [facility] Varicella 2002-11-11 Completed University of (varivax)(chicken 00:00:00 [place] [facility]ox[facility] DTAP 2002-11-11 Completed University of 00:00:00 [facility] HIB 4 Dose Schedule 2002-11-11 Completed Unive rsity of 00:00:00 [facility] Hep B, Adol or Pedi 2002-11-11 Completed Unive rsity of Dosage 00:00:00 [facility] MMR 2002-11-11 Completed University of 00:00:00 [facility] Polio (IPV/OPV) 2002-11-11 Completed Universit y of 00:00:00 [facility] Varicella 2002-11-11 Completed University of (varivax)(chicken 00:00:00 [place] [facility]ox[facility] DTAP 2002-11-11 Completed University of 00:00:00 [facility] Hep B, Adol or Pedi 2002-11-11 Completed Unive rsity of Dosage 00:00:00 [facility] HIB 4 Dose Schedule 2002-11-11 Completed Unive rsity of 00:00:00 [facility] Polio (IPV/OPV) 2002-11-11 Completed Universit y of 00:00:00 [facility] MMR 2002-11-11 Completed University of 00:00:00 [facility] Varicella 2002-11-11 Completed University of (varivax)(chicken 00:00:00 [place] [facility] pox[facility] DTAP 2002-11-11 Completed University of 00:00:00 [facility] HIB 4 Dose Schedule 2002-11-11 Completed Unive rsity of 00:00:00 [facility] Hep B, Adol or Pedi 2002-11-11 Completed Unive rsity of Dosage 00:00:00 [facility] MMR 2002-11-11 Completed University of 00:00:00 [facility] Polio (IPV/OPV) 2002-11-11 Completed Universit y of 00:00:00 [facility] Varicella 2002-11-11 Completed University of (varivax)(chicken 00:00:00 [place] [facility] pox[facility] DTAP 2002-11-11 Completed University of 00:00:00 [facility] Hep B, Adol or Pedi 2002-11-11 Completed Unive rsity of Dosage 00:00:00 [facility] HIB 4 Dose Schedule 2002-11-11 Completed Unive rsity of 00:00:00 [facility] Polio (IPV/OPV) 2002-11-11 Completed Universit y of 00:00:00 [facility] MMR 2002-11-11 Completed University of 00:00:00 [facility] Varicella 2002-11-11 Completed University of (varivax)(chicken 00:00:00 [place] [facility]ox[facility] DTAP 2002-11-11 Completed University of 00:00:00 [facility] HIB 4 Dose Schedule 2002-11-11 Completed Unive rsity of 00:00:00 [facility] Hep B, Adol or Pedi 2002-11-11 Completed Unive rsity of Dosage 00:00:00 [facility] MMR 2002-11-11 Completed University of 00:00:00 [facility] Polio (IPV/OPV) 2002-11-11 Completed Universit y of 00:00:00 [facility] Varicella 2002-11-11 Completed University of (varivax)(chicken 00:00:00 [place] [facility] DTAP 2002-11-11 Completed University of 00:00:00 [facility] Hep B, Adol or Pedi 2002-11-11 Completed Unive rsity of Dosage 00:00:00 [facility] HIB 4 Dose Schedule 2002-11-11 Completed Unive rsity of 00:00:00 [facility] Polio (IPV/OPV) 2002-11-11 Completed Universit y of 00:00:00 [facility] MMR 2002-11-11 Completed University of 00:00:00 [facility] Varicella 2002-11-11 Completed [facility] of (varivax)(chicken 00:00:00 [place] [facility] DTAP 2002-11-11 Completed University of 00:00:00 [facility] HIB 4 Dose Schedule 2002-11-11 Completed Unive rsity of 00:00:00 [facility] Hep B, Adol or Pedi 2002-11-11 Completed Unive rsity of Dosage 00:00:00 [facility] MMR 2002-11-11 Completed University of 00:00:00 [facility] Polio (IPV/OPV) 2002-11-11 Completed Universit y of 00:00:00 [facility] Varicella 2002-11-11 Completed [facility] of (varivax)(chicken 00:00:00 [place] [facility] DTAP 2002-11-11 Completed University of 00:00:00 [facility] Hep B, Adol or Pedi 2002-11-11 Completed Unive rsity of Dosage 00:00:00 [facility] HIB 4 Dose Schedule 2002-11-11 Completed Unive rsity of 00:00:00 [place] [facility] Polio (IPV/OPV) 2002-11-11 Completed Universit y of 00:00:00 [facility] MMR 2002-11-11 Completed University of 00:00:00 [facility] Varicella 2002-11-11 Completed University of (varivax)(chicken 00:00:00 [place] [facility]ox[facility] DTAP 2002-11-11 Completed University of 00:00:00 [facility] Vital Signs Vital Name Observation Time Observation Value Comments Source Systolic blood 2022-01-17 03:00:00 119 mm[Hg] Univer sity of pressure [facility] Diastolic blood 2022-01-17 03:00:00 62 mm[Hg] Unive rsity of pressure [facility] Heart rate 2022-01-17 03:00:00 68 /min Universi ty of [facility] Respiratory rate 2022-01-17 03:00:00 16 /[facility] 2022-01-17 03:00:00 100 [facility] by [facility] Pulse oximetry Branch Body temperature 2022-01-17 02:03:00 37.28 Roselia Univ ersity of [facility] Body height 2022-01-17 02:03:00 165.1 cm Universi ty of [facility] Body weight 2022-01-17 02:03:00 90.719 kg Universi ty of [facility] BMI 2022-01-17 02:03:00 33.28 kg/m2 Universi ty of [facility] Systolic blood 2019-05-27 20:39:00 107 mm[Hg] Univer sity of pressure [facility] Diastolic blood 2019-05-27 20:39:00 63 mm[Hg] Unive rsity of pressure [facility] Heart rate 2019-05-27 20:39:00 77 /min Universi ty of [facility] Body temperature 2019-05-27 20:39:00 36.94 Roselia Univ ersity of [facility] Respiratory rate 2019-05-27 20:39:00 18 /min Univ ersity of [facility] Body height 2019-05-27 20:39:00 165.1 cm Universi ty of [facility] Body weight 2019-05-27 20:39:00 98.431 kg Universi ty of [facility] BMI 2019-05-27 20:39:00 36.11 kg/m2 Universi [...] 2019-05-27 20:39:00 18 /min Univ ersity of [place] [facility] Body height 2019-05-27 20:39:00 165.1 cm Universi ty of [place] [facility] Body weight 2019-05-27 20:39:00 98.431 kg Universi ty of [place] [facility] BMI 2019-05-27 20:39:00 36.11 kg/m2 Universi ty of [place] [facility] Systolic blood 2019-05-17 21:39:00 114 mm[Hg] Univer sity of pressure [facility] Diastolic blood 2019-05-17 21:39:00 71 mm[Hg] Unive rsity of pressure [facility] Heart rate 2019-05-17 21:39:00 103 /min Universi ty of [place] [facility] Body temperature 2019-05-17 21:39:00 37.11 Roselia Univ ersity of [place] [facility] Respiratory rate 2019-05-17 21:39:00 18 /min Univ ersity of [place] [facility] Body height 2019-05-17 21:39:00 165.1 [...] 2019-05-17 21:39:00 18 /min Univ ersity of [facility] Body height 2019-05-17 21:39:00 165.1 cm [facility]i ty of [place] [facility] [place] Body weight 2019-05-17 21:39:00 100.154 kg Universi ty of [facility] BMI 2019-05-17 21:39:00 36.74 kg/m2 Universi ty of [facility] Systolic blood 2019-05-04 18:09:00 135 mm[Hg] Univer sity of pressure [facility] Diastolic blood 2019-05-04 18:09:00 68 mm[Hg] Unive rsity of pressure [facility] Heart rate 2019-05-04 18:09:00 96 /min Universi ty of [facility] Body temperature 2019-05-04 18:09:00 36.78 Roselia [facility] Respiratory rate 2019-05-04 18:09:00 22 /min [facility] Oxygen saturation in 2019-05-04 18:09:00 100 /min [facility] Arterial blood by [facility] Pulse oximetry Branch Systolic blood 2019-04-29 21:00:00 127 mm[Hg] Univer sity of [facility] Diastolic blood 2019-04-29 21:00:00 68 mm[Hg] Unive rsity of [facility] Heart rate 2019-04-29 21:00:00 87 /min Universi ty of [facility] Body temperature 2019-04-29 21:00:00 36.39 Roselia [facility] Respiratory rate 2019-04-29 21:00:00 20 /min [facility] ersity of [facility] Body height 2019-04-29 21:00:00 165.1 cm Universi ty of [place] [facility] [place] Body weight 2019-04-29 21:00:00 98.431 kg Universi ty of [facility] BMI 2019-04-29 21:00:00 36.11 kg/m2 [facility] Procedures Procedure Date / Time Performing Clinician Source Performed LIPASE 2022-01-17 03:09:00 Yvonne Siddiqi [facility] COMP. METABOLIC PANEL 2022-01-17 03:09:00 [facility] ([id number] CBC WITH DIFF 2022-01-17 03:09:00 Yvonne Siddiqi [facility] POCT TEST 2022-01-17 02:14:00 Abraham Weiner [facility] URINALYSIS 2022-01-17 02:10:00 Husam Abraham [facility] NOTICE OF PRIVACY 2022-01-17 01:36:28 Doctor Unassigned, No Univ [facility] CONSENT/REFUSAL FOR 2022-01-17 01:36:18 Doctor Unassigned, No [facility] TDAP (ADACEL) 2019-05-27 20:41:37 Neena [facility] IMMUNIZATION [facility] US ABDOMEN LIMITED 2019-05-17 22:45:16 Neena [facility] ASSIGNMENT OF BENEFITS 2019-05-17 22:12:10 Doctor Unassigned, No [facility] URINALYSIS 2019-05-04 18:55:00 Chasidy Bolaños [facility] ADC CLC OR LCC ONLY - 2019-05-04 18:55:00 Chasidy Bolaños [facility] ADC ONLY - FERN TEST 2019-05-04 18:54:00 Chasidy Bolaños [facility] CONSENT/REFUSAL FOR 2019-05-04 17:47:16 Doctor Unassigned, No Un [facility] of [place] DIAGNOSIS AND TREATMENT [facility] Encounters Start End Encounter Admission Attending Care Care Encounter Source Date/Time Date/Time Type Type Clinicians Facility Department ID 2022-08-02 Emergency [facility] [id number] [place] - 05:16:57 [place] [facility] 2021-07-08 Outpatient [facility] [id number] [facility] 14:21:14 [id number] [facility] 2022-08-02 2022-08-[address] [facility] [id number] [facility] 04:26:00 11:34:00 2022-01-16 2022-01-17 Emergency X DEVANG [facility] ERT [id number] Univers 21:05:00 00:11:00 YVONNE [facility] 2022-01-16 2022-01-17 Emergency [facility] [id number] Univers 21:05:00 00:11:00 Yvonne POPE [id number] i ty [place] [phone] [address] 2021-04-19 2021-04-19 Outpatient R POLO, [facility] [id number] Univers 13:15:00 13:15:00 HUY franco o f [facility] 2021-02-06 2021-02-06 Case Summer Belcher [id number] 00:00:00 00:00:00 Management Jennifer Harrell [id number] [place] 4.2.7.2.686 [phone] [facility] 2021-02-06 2021-02-06 Summer Recinos [id number] [facility] 00:00:00 00:00:00 Management Jennifer Harrell [id number] [place]y [place] [id number] [address] 2020-12-12 2020-12-12 [facility] [id number] 00:00:00 00:00:00 Outreach [place] PR[facility] [id number] [place] [facility] 4.2.7.2.686 PAVILLION [id number] 2020-12-12 2020-12-12 [facility] [id number] Univers 00:00:00 00:00:00 Outreach [place] PRIMARY [id number] i ty [place] [id number] [place] dical [facility] Branch 2020-02-28 2020-02-28 Outpatient R NEENA, [facility] [id number] Univers 15:00:00 15:00:00 ITZEL franco [facility] 2019-12-18 2019-12-18 Outpatient R NORMA [facility] [id number] Univers 17:30:00 17:30:00 KRISSY franco [facility] 2019-11-18 2019-11-18 Outpatient R NEENA [facility] [id number] Univers 14:30:00 14:30:00 ITZEL ity of [facility] 2019-05-27 2019-05-27 [facility] [id number] 14:41:30 15:54:53 Itzel Pope 350.1.13.10 Visit [place] 4.2.7.2.686 Professio [id number] [address] 2019-05-27 2019-05-27 [facility] [id number] Univers 14:41:30 15:54:53 Itzel Pope 350.1.13.10 ity of Visit [place] 4.2.7.2.686 [facility] Profacostaio [id number] N[place] dical [address] 2019-05-17 2019-05-17 [facility] 1.2.840.114 [id number] Univers 17:15:00 23:59:00 Encounter Itzel Pope [id number] ity of [place] 4.2.7.2.686 [facility] [id number] [facility] [address] [place] 2019-05-17 2019-05-17 Campaign Assistant 1, Adc Lab [facility] 1.2.840.114 [id number] Univers 17:21:30 17:36:30 Visit Chasidy Bolaños 350.1.13.10 ity of [place] 4.2.7.2.686 [facility] [place] [id number] [facility] [address] [place] 2019-05-17 2019-05-17 Office [facility] [id number] 15:55:01 16:56:25 Visit Itzel Pope 350.1.13.10 [place] 4.2.7.2.686 Professio [id number] [address] 2019-05-17 2019-05-17 Office [facility] [id number] Univers 15:55:01 16:56:25 Visit Itzel Pope 350.1.13.10 i ty [place] [phone] [address] 2019-05-17 2019-05-17 Orders Doctor MAY 1.2.840.114 [id number] Univers 00:00:00 00:00:00 Only Unassigned, ZACKERY 350.1.13.10 ity of [place] [facility] 4.2.7.2.686 Juan as [phone] [facility] [address] [place] 2019-05-05 2019-05-05 Telephone [facility] 1.2.840.114 [id number] Univers 00:00:00 00:00:00 Itzel Pope 350.1.13.10 i ty [place] [id number] [address] 2019-05-04 2019-05-04 Campaign Assistant 1, Adc Lab [facility] 1.2.840.114 [id number] Univers 15:07:01 15:22:01 Visit Chasidy Bolaños 350.1.13.10 ity of [place]2.[place] [id number] [facility] [address] 2019-05-04 2019-05-04 Hospital Bolaños Chasidy [facility] 1.2.840.114 [id number] Univers 12:48:00 14:57:00 Encounter Pedro Pope 350.1.13.10 ity [place]2.[place] [id number] [facility] [address] [place] 2019-05-04 2019-05-04 Telephone [facility] 1.2.840.114 [id number] Univers 00:00:00 00:00:00 Itzel Pope 350.1.13.10 i ty [place] [phone] [address] 2019-05-04 2019-05-04 Orders Doctor MAY 1.2.840.114 [id number] Univers 00:00:00 00:00:00 Only Unassigned, ZACKERY 350.1.13.10 ity of [place] [facility] 4.2.7.2.686 Juan as [id number] [facility] moiz [address] Branch 2019-04-30 2019-04-30 Case Neena [facility] [id number] Univers 00:00:00 00:00:00 Management Itzel [email or web address] 350.1.13.10 ity of Surgical 4.2.7.2.686 Juan as Specialti [phone] Me dical es [address] [place] 2019-04-29 2019-04-29 Routine Bolaños, Chasidy [facility] [id number] Univers 15:40:17 16:18:51 [facility] 350.1.13.10 ity of Visit [place] [phone] Me dical nal [address] Results Test Description Test Time Test Comments Results Result Comments Source COMP. METABOLIC PANEL (62731) 2022-01-17 03:31:19 Test Item Value Reference Range Interpretation Comme nts NA (test code = 4882159763) 139 mmol/L 135-145 K (test code = 6253593956) 4.2 mmol/L 3.5-5.0 CL (test code = 5090461546) 105 mmol/L 98-108 CO2 TOTAL (test code = 1661927325) 23 mmol/L 23-31 AGAP (test code = 0746809705) 2-16 BUN (test code = 8633535802) 9 mg/dL 7-23 GLUCOSE (test code = 8555584322) 94 mg/dL 70-110 CREATININE (test code = 0.61 mg/dL 0.50-1.04 1776521279) TOTAL BILI (test code = 0.9 mg/dL 0.1-1.9 4381033414) CALCIUM (test code = 6767575295) 9.4 mg/dL 8.6-10.6 T PROTEIN (test code = 1911073371) 8.3 g/dL 6.3-8.2 H ALBUMIN (test code = 3562767384) 4.7 g/dL 3.5-5.0 ALK PHOS (test code = 6140912977) 87 U/L 34-122 ALTv (test code = 1742-6) 11 U/L 5-35 AST(SGOT) (test code = 2634897045) 19 U/L 13-40 eGFR (test code = 4365498100) mL/min/1.73m2 TIERRA (test code = TIERRA) Association [...] tests). Lab Interpretation (test code = Abnormal 95814-2) [facility]19 Test Item Value Reference Range Interpretation Comments LIPASE (test code = 6476686482) 68 U/L 0-220 Lab Interpretation (test code = Normal 67842-1) [facility] WITH [id number] 03:28:58 Test Item Value Reference Range Interpretation Comments WBC (test code = See_Comment [Automated 6690-2) message] The sy stem which generated this [...] RDW-SD (test code = 43.8 fL 39.0-49.9 40404-3) RDW-CV (test code = 15.2 % 12.0-15.5 788-0) PLT (test code = See_Comment [Automated 777-3) message] The sy stem which generated this result transmitted reference range : 166 - 358 10*3/ ?L. The reference r suzi was not used to interpret this result as normal/abnormal . MPV (test code = 11.3 fL 9.5-12.9 10986-4) NRBC/100 WBC (test See_Comment [Automat ed code = 7413320103) message] The system which generated this result transmitted reference range : 0.0 - 10.0 /100 WBCs. The refer ence range was not u sed to interpret th is result as normal/abnormal . NRBC x10^3 (test code <0.01 See_Comment [Auto mated = 7081967546) message] The s ystem which generated this result transmitted reference range : 10*3/?L. The reference range was not used to interpret this result as normal/abnormal . GRAN MAT (NEUT) % 71.7 % (test code = 770-8) IMM GRAN % (test code 0.20 % = 8665014428) LYMPH % (test code = 22.5 % 736-9) MONO % (test code = 4.2 % 5905-5) EOS % (test code = 0.8 % 713-8) BASO % (test code = 0.6 % 706-2) GRAN MAT x10^3(ANC) 6.26 10*3/uL 1.88-7.09 (test code = 3216357163) IMM GRAN x10^3 (test <0.03 0.00-0.06 code = 5152541537) LYMPH x10^3 (test code 1.96 10*3/uL 1.32-3.29 = 731-0) MONO x10^3 (test code 0.37 10*3/uL 0.33-0.92 = 742-7) EOS x10^3 (test code = 0.07 10*3/uL 0.03-0.39 711-2) BASO x10^3 (test code 0.05 10*3/uL 0.01-0.07 = 704-7) Lab Interpretation Abnormal (test code = 33234-7) [id number] 02:14:00 Test Item Value Reference Range Interpretation Comments POCT PREG (test code = 1605) negative On board controls acceptable with present C Line (test code = 3574) POCT PREG LOT # (test code = 3575) [id number] POCT PREG TEST DATE (test 06/21/2023 code = 3576) Lab Interpretation (test code = Normal 79780-4) [facility] ABDOMEN [id number] 23:14:22 Cholelithiasis with no evidence of acute cholecystitis. Mild hepatomegaly. I, Sariat Hernandez MD., have reviewed this study and [...] reviewed this study and agree with theabove report.[facility]2019-[facility]-13 19:31:00 Test Item Value Reference Range Interpretation Comments APPEARANCE (test code Slightly Cloudy Clear A = 4253579391) COLOR (test code = Yellow Yellow 5102549841) PH (test code = 4.8-8.0 2991307486) SP GRAVITY (test code <=1.005 1.003-1.030 = 7818013350) GLU U QUAL (test code Negative Negative = 1266754008) BLOOD (test code = Negative Negative 6740632133) KETONES (test code = Negative Negative 6483143647) PROTEIN (test code = Negative Negative 2887-8) UROBILIN (test code = 0.2 mg/dL See_Comment [Auto mated [id number]) message] The system which generated this result transmit refugio reference range : 0-1.0 mg/dL. Th e reference range was not used to interpret this result as normal/abnormal . BILIRUBIN (test code Negative Negative = 4418689761) NITRITE (test code = Negative Negative 7357057206) LEUK SUMMER (test code Large Negative A = 1758798515) RBC/HPF (test code = See_Comment [Autom ated [id number]) message] The system which generated this result transmit refugio reference range : 0 - 3 HPF. The reference range was not used to interpret this result as normal/abnormal . WBC/HPF (test code = See_Comment H [Autom ated [id number]) message] The system which generated this result transmit refugio reference range : 0 - 5 HPF. The reference range was not used to interpret this result as normal/abnormal . BACTERIA (test code = Moderate Negative A 8572243277) SQ EPITH (test code = HPF 5245388496) Lab Interpretation Abnormal (test code = 68476-7) [facility] OR [facility] ONLY - WET [id number] 19:28:00 Test Item Value Reference Range Interpretation Comments Wet Prep (test code No Trichomonas vaginalis = 8769940820) present [facility] ONLY - FERN [id number] 19:24:00 Test Item Value Reference Range Interpretation Comments Fern Test (test code = 6359757566) Negative [facility]"
[2023-01-30 10:12] LABS: Specific Gravity 1.027 (1.005-1.030); Urine Bacteria <20 /HPF (<20); Urine Bilirubin NEGATIVE (Negative); Urine Blood Negative (Negative); Urine Clarity Turbid (Clear); Urine Color Yellow (Yellow); Urine Glucose NEGATIVE (Negative); Urine Mucus Slight /HPF (None Seen); Urine Protein 1+ (Negative); Urine Urobilinogen Normal (Normal); Urine pH 7.5 (5.0-7.0)
[2023-01-30] MEDS ORDERED: ONDANSETRON 4 MG/2 ML VIAL ONE (10:13)
[2023-01-30] MEDS ORDERED: NA CHLORIDE 0.9% 1,000 ML ONE (10:14)
--- NOTE | 2023-01-30 10:53 | RAD REPORT ---
EXAM DESCRIPTION: US - Transvaginal OB - 01/30/2023 10:30 am CLINICAL HISTORY: pelvic pain, vaginal bleeding COMPARISON: Transvaginal OB dated 05/27/2018 TECHNIQUE: Sonographic grayscale and color flow images of a first-trimester were obtained through approach. FINDINGS: A single intrauterine is identified. No cardiac pulsations were identified . [place]-rump length measures 2.1 millimeters, corresponding to gestational age of 6 weeks, 0 days. No yolk sac is visualized. Maternal ovaries are visualized with maintained flow, with the right ovary seen transabdominally. A d ominant cyst or follicle measuring 1.5 centimeter is seen on the left. No free fluid. IMPRESSION: 1. Single intrauterine . 2. No cardiac pulsations were identified, which may be due to early gestational age. A follow-u p ultrasound in 7 days is recommended. 3. Calculated gestational age: 6 weeks, 0 days. Estimated due date by ultrasound: 09/25/2023.
[2023-01-30 10:59] LABS: Hematocrit 34.8 % (36.0-45.0); Lymphocytes % 33.2 % (15.3-44.8); MCV 78.8 fL (80-100); MPV 9.8 fL (7.6-11.3); RBC Red Blood Cell Count 4.42 M/uL (3.86-4.86)
[2023-01-30 11:31] LABS: Potassium 3.5 mEq/L (3.5-5.1)
--- NOTE | 2023-01-30 11:34 | EDPHYS ---
Physician Documentation [facility] Name: Arina Valdes Age: 22 yrs Sex: Female : 2000 Arrival Date: 01/30/2023 Time: 09:12 Bed 2 Private MD: ED Physician Deborah Patel HPI: 01/30 09:35 This 22 yrs old Female presents to ER via Ambulatory with complaints of jmm Vaginal Bleeding, + Preg <12wks, Abdominal Cramping. 09:35 The patient presents to the emergency department with vaginal bleeding. The estimated jmm gestational age is 5 weeks. course: care: none. Previous pregnancies: in previous pregnancies patient has had. Is a G5, P1 that presents emerged part with complaints of pelvic cramping and vaginal bleeding bleeding approximately 3 days ago. Patient denies fever. Denies vomiting.. 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 - Social history:: Smoking status: Patient denies any tobacco usage or history of. ROS: 09:35 Constitutional: Negative for fever, chills, and weight loss, Cardiovascular: Negative jmm for chest pain, palpitations, and edema, Respiratory: Negative for shortness of breath, cough, wheezing, and pleuritic chest pain. 09:35 All other systems are negative. Exam: 09:35 Constitutional: This is a well developed, well nourished patient who is awake, alert, jmm and in no acute distress. Head/Face: atraumatic. Eyes: EOMI, no conjunctival erythema appreciated ENT: Moist Mucus Membranes Neck: Trachea midline, Supple Chest/axilla: Normal chest wall appearance and motion. Cardiovascular: Regular rate and rhythm. No edema appreciated Respiratory: Normal respirations, no respiratory distress appreciated 09:35 Back: Normal ROM Skin: General appearance color normal MS/ Extremity: Moves all extremities, no obvious deformities appreciated, no edema noted to the lower extremities Neuro: Awake and alert Psych: Behavior is normal, Mood is normal, Patient is cooperative and pleasant 09:35 Abdomen/GI: Inspection: abdomen appears normal, Bowel sounds: normal, Palpation: soft, mild abdominal tenderness, in the suprapubic area. Vital Signs: 09:26 BP 117 / 65; Pulse 84; Resp 16; Temp 97.1; Pulse Ox 100% on R/A; Weight 89.81 kg; iw Height 5 ft. 5 in. ; Pain 7/10; 10:53 BP 112 / 67; Pulse 71; Resp 16; Pulse Ox 100% ; bp 11:45 BP 109 / 76; Pulse 71; Resp 16; Pulse Ox 100% on R/A; db 09:26 Body Mass Index 32.95 (89.81 kg, 165.1 cm) iw 09:26 Pain Scale: Adult iw MDM: 09:35 [facility] 14[facility]18 Differential diagnosis: Ectopic , urinary tract infection, threatened jmm . Data reviewed: vital signs, nurses notes, lab test result(s), radiologic studies, ultrasound. I considered the following discharge prescriptions or medication management in the emergency department Medications were administered in the Emergency Department. See MAR. Care significantly affected by the following chronic conditions: . Counseling: I had a detailed discussion with the patient and/or guardian regarding: the historical points, exam findings, and any diagnostic results supporting the discharge/admit diagnosis, lab results, radiology results, the need for outpatient follow up, to return to the emergency department if symptoms worsen or persist or if there are any questions or concerns that arise at home. 01/30 09:45 Order name: Abo/rh Typing; Complete Time: 11: [facility] 01/30 09:45 Order name: Basic Metabolic Panel; Complete Time: 11:32 [facility] 01/30 09:45 Order name: CBC with Diff; Complete Time: 11:28 [facility] 01/30 09:45 Order name: Test, Urine; Complete Time: 10: [facility] 01/30 09:45 Order name: Quantitative Hcg; Complete Time: 11:32 [facility] 01/30 09:45 Order name: Urinalysis w/ reflexes; Complete Time: 10:12 [facility] 01/30 09:45 Order name: US Transvaginal Ob; Complete Time: 10:57 [facility] 01/30 09:45 Order name: IV Saline Lock; Complete Time: 10:08 [facility] 01/30 09:45 Order name: Labs collected and sent; Complete Time: : [facility] 01/30 09:45 Order name: NPO; Complete Time: : [facility] Administered Medications: 10:00 Drug: NS 0.9% IV 1000 ml Route: IV; Rate: 1 bolus; Site: right antecubital; bp 12:16 Follow up: Response: No adverse reaction; IV Status: Completed infusion; IV Intake: db 1000ml 10:00 Drug: Ondansetron IVP 4 mg Route: IVP; Site: right antecubital; bp 12:16 Follow up: Response: No adverse reaction db Disposition: 15:50 STAFF ATTESTATION STATEMENT: I was immediately available onsite in the emergency sd2 department for consultation in the care of this patient. I did not see or examine this patient. Deborah Patel MD. Disposition Summary: 01/30/23 11:33 Discharge Ordered [facility] Condition: Stable [facility] Diagnosis - Threatened [facility] - UTI/ Urinary tract infection, site not specified [facility]up[facility] - With: Private Physician - When: 2 - 3 days - Reason: Recheck today's complaints, Continuance of care, Repeat Beta-HCG (48 Hours), Re-evaluation by your physician Discharge Instructions: - Discharge Summary Sheet [facility] - Threatened Miscarriage [facility] - Urinary Tract Infection, Adult [facility] Forms: - Medication Reconciliation Form [facility] - Thank You Letter [facility] - Antibiotic Education [facility] - Prescription Opioid Use [facility] - Work release form iw - Family Work Release iw Prescriptions: - ondansetron 4 mg Oral Tablet,disintegrating - take 1 tablet by ORAL route every 4-6 hours As needed; 20 tablet; Refills: 0, [facility] Product Selection Permitted - Cephalexin 500 mg Oral Capsule - take 1 capsule by ORAL route every 8 hours for 10 days; 30 capsule; Refills: 0, [facility] Product Selection Permitted Signatures: Dispatcher [employer] Doug Lr PA PA jmm Williams, Irene, RN Dwayne Mccracken RN Deborah Henry MD MD [facility] Sandy Coe RN db
--- NOTE | 2023-01-30 11:34 | ER ---
Nurse's Notes [facility] Name: Arina Valdes Age: 22 yrs Sex: Female : 2000 Arrival Date: 01/30/2023 Time: 09:12 Bed 2 Private MD: Diagnosis: Threatened ;UTI/ Urinary tract infection, site not specified Presentation: 01/30 09:26 Chief complaint: Patient states: is approx 5 weeks , started having spotting on iw Friday and that has resolved, now she is having cramping on the left side . . Coronavirus screen: At this time, the client does not indicate any symptoms associated with coronavirus-19. Ebola Screen: Patient negative for fever greater than or equal to 101.5 degrees Fahrenheit, and additional compatible Ebola Virus Disease symptoms Patient denies exposure to infectious person. Patient denies travel to an Ebola-affected area in the 21 days before illness onset. No symptoms or risks identified at this time. Initial Sepsis Screen: Does the patient meet any 2 criteria? No. Patient's initial sepsis screen is negative. Does the patient have a suspected source of infection? No. Patient's initial sepsis screen is negative. Risk Assessment: Do you want to hurt yourself or someone else? Patient reports no desire to harm self or others. Onset of symptoms was January 30, 2023. 09:26 Method Of Arrival: Ambulatory iw 09:26 Acuity: PEYTON 3 Triage Assessment: 09:34 General: Appears in no apparent distress. Behavior is cooperative, appropriate for age, bp anxious. Pain: Denies pain. EENT: No deficits noted. Neuro: No deficits noted. Cardiovascular: No deficits noted. Respiratory: No deficits noted. GI: No signs and/or symptoms were reported involving the gastrointestinal system. : Reports vaginal bleeding that is. Derm: No deficits noted. Musculoskeletal: No deficits noted. 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 - Social history:: Smoking status: Patient denies any tobacco usage or history of. Screenin:36 [facility] ED Fall Risk Assessment (Adult) History of falling in the last 3 months, bp including since admission No falls in past 3 months (0 pts). Abuse screen: Denies threats or abuse. Denies injuries from another. Nutritional screening: No deficits noted. Tuberculosis screening: No symptoms or risk factors identified. Assessment: 09:36 General: SEE TRIAGE NOTE. bp 11:00 Reassessment: No changes from previously documented assessment. Patient is alert, bp oriented x 3, equal unlabored respirations, skin warm/dry/pink. 12:14 Obstetrical Assessment: General assessment: awake and alert. Reassessment: Patient db appears in no apparent distress at this time. Patient and/or family updated on plan of care and expected duration. Pain level reassessed. Patient is alert, oriented x 3, equal unlabored respirations, skin warm/dry/pink. Patient states feeling better. Patient states symptoms have improved. General: Appears in no apparent distress. comfortable, Behavior is calm, cooperative. Neuro: Level of Consciousness is awake, alert, obeys commands, Oriented to person, place, time, situation. Vital Signs: 09:26 BP 117 / 65; Pulse 84; Resp 16; Temp 97.1; Pulse Ox 100% on R/A; Weight 89.81 kg; iw Height 5 ft. 5 in. ; Pain 7/10; 10:53 BP 112 / 67; Pulse 71; Resp 16; Pulse Ox 100% ; bp 11:45 BP 109 / 76; Pulse 71; Resp 16; Pulse Ox 100% on R/A; db 09:26 Body Mass Index 32.95 (89.81 kg, 165.1 cm) iw 09:26 Pain Scale: Adult iw Vitals: 12:15 Heart Tones unable to obtain. Pt is not far enough along. db ED Course: 09:14 Patient arrived in ED. rg4 09:23 Doug Bains PA is PHCP. moym 09:24 Deborah Patel MD is Attending Physician. jmm 09:27 Triage completed. iw 09:28 Arm band placed on. iw 09:34 Dwayne Mahan, RN is Primary Nurse. bp 09:36 Patient has correct armband on for positive identification. Bed in low position. Call bp light in reach. Side rails up X2. 10:08 US Transvaginal Ob Sent. bp 10:31 US Transvaginal Ob In Process Unspecified. EDMS 10:45 Inserted saline lock: 20 gauge in right antecubital area, using aseptic technique. [email or web address] Blood collected. 12:14 No provider procedures requiring assistance completed. Patient did not have IV access db during this emergency room visit. Administered Medications: 10:00 Drug: NS 0.9% IV 1000 ml Route: IV; Rate: 1 bolus; Site: right antecubital; bp 12:16 Follow up: Response: No adverse reaction; IV Status: Completed infusion; IV Intake: db 1000ml 10:00 Drug: Ondansetron IVP 4 mg Route: IVP; Site: right antecubital; bp 12:16 Follow up: Response: No adverse reaction db Medication: 09:36 VIS not applicable for this client. bp Intake: 12:16 IV: 1000ml; Total: 1000ml. db Outcome: 11:33 Discharge ordered by MD. pablo 12:14 Discharged to home ambulatory, with friend. db 12:14 Condition: stable 12:14 Discharge instructions given to patient, Instructed on discharge instructions, follow up and referral plans. Prescriptions given X 2. 12:16 Patient left the ED. db Signatures: Dispatcher [employer] EDMS Doug Bains PA PA jmm Williams, Irene, RN RN iw Asia Dixon rg4 Dwayne Mahan RN RN bp Benton, Danielle, RN RN db Francine Rich ks8 Corrections: (The following items were deleted from the chart) 09:28 09:26 Chief complaint: Patient states: is approx 5 weeks , started having iw spotting on Friday and that has resolved, now she is having cramping on the left side iw 09:29 09:28 5, 4, Living 1, LMP 12/27/2022 iw iw
[2023-01-30 12:43] VITALS: TEMP 97.1; O2SAT 100
[2023-01-30 12:54] VITALS: BP 109/76
== END 2023-01-30 12:16 | disposition home or self-care (01) ==
LOC: ER 09:12
DX: O20.0 Threatened abortion (principal); N39.0 Urinary tract infection, site not specified
CPT/HCPCS: 36415; 76817; 80048; 81001; 81025; 84702; 85025; 86900; 86901; 96361; 96374; 99284; J2405; J7030

== ENCOUNTER 2023-02-01 15:22 | Emergency (ER) | payer SELFPAY ==
[2023-02-01 15:52] LABS: Specific Gravity 1.023 (1.005-1.030)
[2023-02-01 15:53] LABS: Specific Gravity 1.023 (1.005-1.030); Urine Bacteria <20 /HPF (<20); Urine Bilirubin NEGATIVE (Negative); Urine Blood Negative (Negative); Urine Clarity Clear (Clear); Urine Color Light-Yellow (Yellow); Urine Glucose NEGATIVE (Negative); Urine Mucus Slight /HPF (None Seen); Urine Protein 1+ (Negative); Urine RBC <5 /HPF (None Seen); Urine Urobilinogen Normal (Normal); Urine pH 6.5 (5.0-7.0)
--- NOTE | 2023-02-01 16:27 | EDPHYS ---
Physician Documentation [facility] Name: Arina Valdes Age: 22 yrs Sex: Female : 2000 Arrival Date: 02/01/2023 Time: 15:22 Bed 20 Private MD: ED Physician Goldy Harrison HPI: 02/01 15:37 This 22 yrs old Female presents to ER via Ambulatory with complaints of bs3 Abdominal Cramping, Vaginal Bleeding, + Preg <12wks. 15:37 22yo 6 weeks by dates, IUP per US 2 days ago pw cramping and vaginal spotting. No bs3 lightheadedness or dizziness. . 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 - Social history:: Smoking status: Patient denies any tobacco usage or history of. ROS: 15:37 Constitutional: Negative for fever, chills bs3 15:37 All other systems are negative. Exam: 15:37 Constitutional: This is a well developed, well nourished patient who is awake, alert, bs3 and in no acute distress. Head/Face: Normocephalic, atraumatic. Eyes: Pupils equal round and reactive to light, extra-ocular motions intact. Lids and lashes normal. ENT: mmm, no posterior phyarngeal erythema Chest/axilla: Normal chest wall appearance and motion. Nontender with no deformity. No lesions are appreciated. Cardiovascular: Regular rate and rhythm with a normal S1 and S2. symmetric pulses in upper extremities Respiratory: Lungs have equal breath sounds bilaterally, clear to auscultation, no respiratory distress Abdomen/GI: Soft, non-tender, no rebound or guarding MS/ Extremity: Pulses equal, no cyanosis. Neurovascular intact. Full, normal range of motion. Neuro: Awake and alert, GCS 15, oriented to person, place, time, and situation. Cranial nerves II-XII grossly intact. Motor strength 5/5 in all extremities. Sensory grossly intact. Psych: Awake, alert, with orientation to person, place and time. Behavior, mood, and affect are within normal limits. Vital Signs: 15:24 BP 134 / 90; Pulse 110; Resp 20 S; Temp 98(TE); Pulse Ox 100% on R/A; Weight 90.72 kg aa5 (R); Height 5 ft. 5 in. (R); 15:24 Body Mass Index 33.28 (90.72 kg, 165.1 cm) aa5 MDM: 15:23 Patient medically screened. bs3 15:40 Data reviewed: vital signs, nurses notes. ED course: reviewed labs [place] [address], and there was no fhr last time, +crown rump but no yolk sac. Advised f/u with payroll accounting manager as scheduled. . 16:25 ED course: hcg almost doubles within 72 hours, less likely to be ectopic given the bs3 clinical scenario, advised f/u with obgyn. 02/01 15:28 Order name: Urinalysis w/ reflexes; Complete Time: 16:16 bs3 02/01 15:28 Order name: Test, Urine; Complete Time: 16:16 bs3 02/01 15:31 Order name: HCG-Quantitative; Complete Time: 16:23 bs3 Administered Medications: No medications were administered Disposition Summary: 02/01/23 16:26 Discharge Ordered Location: Home bs3 Problem: new bs3 Symptoms: are unchanged bs3 Condition: Stable bs3 Diagnosis - Threatened bs3 Followup: bs3 - With: Private Physician - When: 1 week - Reason: Re-evaluation by your physician Discharge Instructions: - Discharge Summary Sheet bs3 - Threatened Miscarriage bs3 - Vaginal Bleeding During , First Trimester bs3 Forms: - Work release form eh3 - Medication Reconciliation Form bs3 - Thank You Letter bs3 - Antibiotic Education bs3 - Prescription Opioid Use bs3 Signatures: Dispatcher [employer] Niyah Lamar RN RN aa5 Goldy Harrison MD MD bs3
--- NOTE | 2023-02-01 16:27 | ER ---
Nurse's Notes [facility] Name: Arina Valdes Age: 22 yrs Sex: Female : 2000 Arrival Date: 02/01/2023 Time: 15:22 Bed 20 Private MD: Diagnosis: Threatened Presentation: 02/01 15:24 Chief complaint: Patient states: abd cramping, reports vaginal spotting and being 6 aa5 weeks . Needs repeat HCG. 15:24 Coronavirus screen: At this time, the client does not indicate any symptoms associated aa5 with coronavirus-19. Ebola Screen: Patient denies travel to an Ebola-affected area in the 21 days before illness onset. Initial Sepsis Screen: Does the patient meet any 2 criteria? HR > 90 bpm. Does the patient have a suspected source of infection? No. Patient's initial sepsis screen is negative. Risk Assessment: Do you want to hurt yourself or someone else? Patient reports no desire to harm self or others. Onset of symptoms was January 2023. 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 - Social history:: Smoking status: Patient denies any tobacco usage or history of. Screenin:[address] [facility] ED Fall Risk Assessment (Adult) Score/Fall Risk Level 0 - 2 = Low Risk. Abuse eh3 screen: Denies threats or abuse. Denies injuries from another. Nutritional screening: No deficits noted. Tuberculosis screening: No symptoms or risk factors identified. Assessment: 15:47 General: Appears in no apparent distress. comfortable, Behavior is cooperative, eh3 appropriate for age, anxious, crying. Pain: Complains of pain in suprapubic area, right lower quadrant and left lower quadrant. Neuro: Level of Consciousness is awake, alert, obeys commands, Oriented to person, place, time, situation. Cardiovascular: Capillary refill < 3 seconds Patient's skin is warm and dry. Respiratory: Airway is patent Respiratory effort is even, unlabored, Respiratory pattern is regular, symmetrical. GI: Abdomen is round non-distended, Bowel sounds present X 4 quads. Abd is soft and non tender X 4 quads. : No signs and/or symptoms were reported regarding the genitourinary system. EENT: No signs and/or symptoms were reported regarding the EENT system. Derm: Skin is pink, warm \T\ dry. Musculoskeletal: Circulation, motion, and sensation intact. Range of motion: intact in all extremities. Vital Signs: 15:24 BP 134 / 90; Pulse 110; Resp 20 S; Temp 98(TE); Pulse Ox 100% on R/A; Weight 90.72 kg aa5 (R); Height 5 ft. 5 in. (R); 15:24 Body Mass Index 33.28 (90.72 kg, 165.1 cm) 5 ED Course: 15:23 Patient arrived in ED. ts1 15:23 Goldy Harrison MD is Attending Physician. bs3 15:26 Arm band placed on. 5 15:28 Triage completed. aa5 15:31 Pamella Skinner, CARLOS is Primary Nurse. eh3 15:47 Patient has correct armband on for positive identification. Bed in low position. Call 3 light in reach. Side rails up X2. Adult w/ patient. Pulse ox on. NIBP on. 15:47 HCG-Quantitative Sent. eh3 15:47 Test, Urine Sent. eh3 15:47 Urinalysis w/ reflexes Sent. eh3 15:47 Inserted saline lock: 20 gauge in right antecubital area, using aseptic technique. eh3 Blood collected. 16:35 No provider procedures requiring assistance completed. IV discontinued, intact, eh3 bleeding controlled, No redness/swelling at site. Pressure dressing applied. Administered Medications: No medications were administered Medication: 16:35 VIS not applicable for this client. eh3 Outcome: 16:26 Discharge ordered by . bs3 16:45 Patient left the ED. eh3 Signatures: Niyah White RN RN aa5 Pamella Skinner RN RN eh3 Goldy Harrison MD MD bs3 Yanira Moore PAS PAS ts1 Corrections: (The following items were deleted from the chart) 15:28 15:24 BP 134 / 90; Pulse 110bpm; Resp 20bpm; Spontaneous; Pulse Ox 100% RA; Temp 98F aa5 Temporal; aa5 15:31 15:24 Chief complaint: Patient states: abd cramping, reports vaginal spotting and being aa5 6 weeks . aa5
--- OUTSIDE RECORDS SUMMARY | 2023-02-01 16:28 | XMS REPORT | Continuity of Care Document ---
:2000 Author Organization [facility] t Address [address] [place] [address] Care Team Providers Name Role Phone Chasidy Bolaños MD Primary Care Physician HUY CUELLAR Attending Clinician Unavailable LEEROY DENG Attending Clinician Unavailable YVONNE SIDDIQI Attending Clinician Unavailable Yvonne Rodriguez Attending Clinician Jennifer Belcher LMSW Attending Clinician Unavailable Broderick Melton DO Attending Clinician ITZEL CHAUDHARY Attending Clinician Unavailable KRISSY GREEN Attending Clinician Unavailable Itzel Chaudhary PA-C Attending Clinician 1, [facility] Attending Clinician Unavailable Chasidy Bolaños MD Attending Clinician Doctor Unassigned, [place] Attending Clinician Unavailable Chasidy Bolaños MD Admitting Clinician Payers Payer Name Policy Type Policy Number Effective Date Expiration Date L[place] trammell [facility] K[facility]STIN [id number] 2018 00:00:00 Problems Condition Condition Condition Status Onset Resolution Last Treating Co mments Source Name Details Category Date Date Treatment Clinician Date Nexplanon Nexplanon Disease Active 2018-09 Uni vers insertion insertion 2-16 ity of 00:00: [place] [facility] Nexplanon Nexplanon Disease Active 2018-[address] in place 2-16 ity of 00:00: [place] [address] Medical [place] Encounter Encounter Disease Active 2018-09 Uni vers for female for female 2-16 it y of 00:00: [place] control control [facility] Anemia, Anemia, Disease Active 2018-09 Univers antepartum antepartum 1-12 it y of , third , third 00:00: [place] trimester trimester 00 [facility] Obesity Obesity Disease Active Univers (BMI (BMI 4-15 ity of 30-39.9) 30-39.9) 00:00: [place] [facility] [place] History of History of Disease Active U tariqers depression depression 4-15 it y of 00:00: [place] [address] Medical [place] History of History of Disease Active U nivers anxiety anxiety 4-15 ity of 00:00: [address] Allergies, Adverse Reactions, Alerts Allergy Allergy Status Severity Reaction(s) Onset Inactive Treating Comm ents Source Name Type Date Date Clinician NO KNOWN Drug Active Univers ALLERGIE Class ity of S [facility] Social History Social Habit Start Date Stop Date Quantity Comments Source ASSERTION 2018-11-14 University of 00:00:00 [facility] History of Cigarette Smoker Universi ty of tobacco use [facility] Exposure to 2022-01-06 2022-01-16 Unable to assess Univers ity of SARS-CoV-2 00:00:00 20:33:00 [facility] (event) [place] Alcohol intake 2022-01-16 2022-01-16 Current University of 00:00:00 00:00:00 non-drinker of [facility] alcohol (finding) [place] Tobacco Comment 2019-01-04 2019-01-04 fiance smokes Univer sity of 00:00:00 00:00:00 outside [facility] Tobacco use and 2015-04-13 2015-04-13 Never used Universit y of exposure 00:00:00 00:00:00 [facility] Sex Assigned At [birth year] Universit y of 00:00:00 00:00:00 [facility] Smoking Status Start Date Stop Date Source Never smoker [facility] Medications Ordered Filled Start Stop Current Ordering [...] 01/16/22 at 2300, ABHAY ondansetron 0 Yes [id number] 4mg Take 1 Univers 4 mg 4-27 tablet by ity of disintegrat 00:00: mouth [place] ing tablet 00 every 8 Medica l (eight) Branch hours as needed for Nausea and Vomiting (N/V). azithromyci 2020-0 Yes [id number] 250mg Take 1 Univers n 250 mg 3-28 tablet by ity of tablet 00:00: mouth [place] 00 daily. Medical Take 500 Branch mg day 1, then 250 mg days 2 to 5. azithromyci 2020-0 Yes [id number] 250mg Take 1 Univers n 250 mg 3-28 tablet by ity of tablet 00:00: mouth [place] 00 daily. Medical Take 500 Branch mg day 1, then 250 mg days 2 to 5. azithromyci 2020-0 Yes [id number] 250mg Take 1 Univers n 250 mg 3-28 tablet by ity of tablet 00:00: mouth [place] 00 daily. Medical Take 500 Branch mg day 1, then 250 mg days 2 to 5. Nitrofurant 2019- No [id number] 100mg Take 1 Univers oin&Nit. 05-04- capsule by ity of [place] 00:00: 04:59 mouth 2 Juan as 100 mg 00 :00 (two) Medical capsule times Branch daily for 7 days. metroNIDAZO 2018- Yes [id number] 500mg Take 1 Univers LE 500 mg 8-09 tablet by ity o f tablet 00:00: mouth [place] 00 every 12 Medical (twelve) Branch hours. metroNIDAZO 2018- Yes [id number] 500mg Take 1 Univers LE 500 mg 8-09 tablet by ity o f tablet 00:00: mouth [place] 00 every 12 Medical (twelve) Branch hours. metroNIDAZO Yes [id number] 500mg Take 1 Univers LE 500 mg 8-09 tablet by ity o f tablet 00:00: mouth [place] 00 every 12 Medical (twelve) Branch hours. metroNIDAZO 2019- No [id number] 500mg Take 1 Univers LE 500 mg 04-30- tablet by ity of tablet 00:00: 00:00 mouth [place] 00 :00 every 12 Medical (twelve) Branch hours. fluconazole Yes [id number] 200mg Take 1 Univers (DIFLUCAN) 8-08 tablet by ity of 200 mg 00:00: mouth [place] tablet 00 daily. Medical Branch fluconazole Yes [id number] 200mg Take 1 Univers (DIFLUCAN) 8-08 tablet by ity of 200 mg 00:00: mouth [place] tablet 00 daily. Medical Branch fluconazole Yes [id number] 200mg Take 1 Univers (DIFLUCAN) 8-08 tablet by ity of 200 mg 00:00: mouth [place] tablet 00 daily. Medical Branch fluconazole 2018- Yes [id number] 200mg Take 1 Univers (DIFLUCAN) 8-08 tablet by ity of 200 mg 00:00: mouth [place] tablet 00 daily. Medical Branch fluconazole 2018- 2019- No [id number] 200mg Take 1 Univers (DIFLUCAN) 8-08 -13 tablet by ity of 200 mg 00:00: 00:00 mouth [place] tablet 00 :00 daily. Medical Branch [id number], 2018- Yes [id number] Take 1 Univers carb,glu-FA 4-15 9106 TAB-CAP/M2 it y of -dss-dha 00:00: by mouth [place] (CITRANATAL 00 daily. Medica l DHA, ALGAL Branch OIL,) 27 mg iron-1 mg -50 mg-250 mg Cmpk [id number], 2019-0 Yes [id number] Take 1 Univers carb,glu-FA 4-15 9106 TAB-CAP/M2 it y of -dss-dha 00:00: by mouth [place] (CITRANATAL 00 daily. Medica l DHA, ALGAL Branch OIL,) 27 mg iron-1 mg -50 mg-250 mg Cmpk [id number], 2019-0 Yes [id number] Take 1 Univers carb,glu-FA 4-15 9106 TAB-CAP/M2 it y of -dss-dha 00:00: by mouth [place] (CITRANATAL 00 daily. Medica l DHA, ALGAL Branch OIL,) 27 mg iron-1 mg -50 mg-250 mg Cmpk [id number], 2018-0 Yes [id number] Take 1 Univers carb,glu-FA 4-15 9106 TAB-CAP/M2 it y of -dss-dha 00:00: by mouth [place] (CITRANATAL 00 daily. Medica l DHA, ALGAL Branch OIL,) 27 mg iron-1 mg -50 mg-250 mg Cmpk [id number], 2019-0 Yes [id number] Take 1 Univers carb,glu-FA 4-15 9106 TAB-CAP/M2 it y of -dss-dha 00:00: by mouth [place] (CITRANATAL 00 daily. Medica l DHA, ALGAL Branch OIL,) 27 mg iron-1 mg -50 mg-250 mg Cmpk [id number], 2019-0 Yes [id number] Take 1 Univers carb,glu-FA 4-15 9106 TAB-CAP/M2 it y of -dss-dha 00:00: by mouth [place] (CITRANATAL 00 daily. Medica l DHA, ALGAL Branch OIL,) 27 mg iron-1 mg -50 mg-250 mg Cmpk [id number], 2019-0 Yes [id number] Take 1 Univers carb,glu-FA 4-15 9106 TAB-CAP/M2 it y of -dss-dha 00:00: by mouth [place] (CITRANATAL 00 daily. Medica l DHA, ALGAL Branch OIL,) 27 mg iron-1 mg -50 mg-250 mg Cmpk [id number], 2019-0 Yes [id number] Take 1 Univers carb,glu-FA 4-15 9106 TAB-CAP/M2 it y of -dss-dha 00:00: by mouth [place] (CITRANATAL 00 daily. Medica l DHA, ALGAL Branch OIL,) 27 mg iron-1 mg -50 mg-250 mg Cmpk [id number], 2019-0 Yes [id number] Take 1 Univers carb,glu-FA 4-15 9106 TAB-CAP/M2 it y of -dss-dha 00:00: by mouth [place] (CITRANATAL 00 daily. Medica l DHA, ALGAL Branch OIL,) 27 mg iron-1 mg -50 mg-250 mg Cmpk [id number], 2018-0 Yes [id number] Take 1 Univers carb,glu-FA 4-15 9106 TAB-CAP/M2 it y of -dss-dha 00:00: by mouth [place] (CITRANATAL 00 daily. Medica l DHA, ALGAL Branch OIL,) 27 mg iron-1 mg -50 mg-250 mg Cmpk [id number], 2018-0 Yes [id number] Take 1 Univers carb,glu-FA 4-15 9106 TAB-CAP/M2 it y of -dss-dha 00:00: by mouth [place] (CITRANATAL 00 daily. Medica l DHA, ALGAL Branch OIL,) 27 mg iron-1 mg -50 mg-250 mg Cmpk [id number], 2018-0 Yes [id number] Take 1 Univers carb,glu-FA 4-15 9106 TAB-CAP/M2 it y of -dss-dha 00:00: by mouth [place] (CITRANATAL 00 daily. Medica l DHA, ALGAL Branch OIL,) 27 mg iron-1 mg -50 mg-250 mg Cmpk [id number], 2018-0 Yes [id number] Take 1 Univers carb,glu-FA 4-15 9106 TAB-CAP/M2 [...] 2019-04-01 Completed Uni versity of 00:00:00 [facility] TDAP (ADACEL) VACCINE 2019-04-01 Completed Uni versity of 00:00:00 [facility] TDAP (ADACEL) VACCINE 2019-04-01 Completed Uni versity of 00:00:00 [facility] Influenza Virus 2019-01-04 Completed Universit y of [...] Branch HPV 2015-04-13 Completed University of 00:00:00 [facility] Meningococcal 2015-04-13 Completed University of Polysaccharide 00:00:00 [place] [facility] (groups A, C, Y and Branc h W-135) conjugate vaccine (MCV4P) TDAP (ADACEL) VACCINE 2015-04-13 Completed Uni versity of 00:00:00 [facility] HPV 2015-04-13 Completed University of 00:00:00 [facility] Meningococcal 2015-04-13 Completed University of Polysaccharide 00:00:00 [place] Medi moiz (groups A, C, Y and Branc h W-135) conjugate vaccine (MCV4P) TDAP (ADACEL) VACCINE 2015-04-13 Completed Uni versity of 00:00:00 [facility] HPV 2015-04-13 Completed University of 00:00:00 [facility] Meningococcal 2015-04-13 Completed University of Polysaccharide 00:00:00 [place] Med[facility] (groups A, C, Y and Branc h W-135) conjugate vaccine (MCV4P) TDAP (ADACEL) VACCINE 2015-04-13 Completed Uni versity of 00:00:00 [facility] HPV 2015-04-13 Completed University of 00:00:00 [facility] Meningococcal 2015-04-13 Completed University of Polysaccharide 00:00:00 [place] Med[facility] (groups A, C, Y and Branc h W-135) conjugate vaccine (MCV4P) TDAP (ADACEL) VACCINE 2015-04-13 Completed Uni versity of 00:00:00 [facility] HPV 2015-04-13 Completed University of 00:00:00 [facility] Meningococcal 2015-04-13 Completed University of Polysaccharide 00:00:00 [place] Medi moiz (groups A, C, Y and Branc h W-135) conjugate vaccine (MCV4P) TDAP (ADACEL) VACCINE 2015-04-13 Completed Uni versity of 00:00:00 [facility] HPV 2015-04-13 Completed University of 00:00:00 [facility] Meningococcal 2015-04-13 Completed University of Polysaccharide 00:00:00 [place] Medi moiz (groups A, C, Y and Branc h W-135) conjugate vaccine (MCV4P) TDAP (ADACEL) VACCINE 2015-04-13 Completed Uni versity of 00:00:00 [facility] HPV 2015-04-13 Completed University of 00:00:00 [facility] Meningococcal 2015-04-13 Completed University of Polysaccharide 00:00:00 [place] Med[facility]iz (groups A, C, Y and Branc h W-135) conjugate vaccine (MCV4P) TDAP (ADACEL) VACCINE 2015-04-13 Completed Uni versity of 00:00:00 [facility] HPV 2015-04-13 Completed University of 00:00:00 [facility] Meningococcal 2015-04-13 Completed University of Polysaccharide 00:00:00 [place] Medi moiz (groups A, C, Y and Branc h W-135) conjugate vaccine (MCV4P) TDAP (ADACEL) VACCINE 2015-04-13 Completed Uni versity of 00:00:00 [facility] HPV 2015-04-13 Completed University of 00:00:00 [facility] Meningococcal 2015-04-13 Completed University of Polysaccharide 00:00:00 [place] Medi [facility]iz (groups A, C, Y and Branc h W-135) conjugate vaccine (MCV4P) TDAP (ADACEL) VACCINE 2015-04-13 Completed Uni versity of 00:00:00 [facility] HPV 2015-04-13 Completed University of 00:00:00 [facility] Meningococcal 2015-04-13 Completed University of Polysaccharide 00:00:00 [place] Medi [facility] (groups A, C, Y and Branc h W-135) conjugate vaccine (MCV4P) TDAP (ADACEL) VACCINE 2015-04-13 Completed Uni versity of 00:00:00 [facility] HPV 2015-04-13 Completed University of 00:00:00 [facility] Meningococcal 2015-04-13 Completed University of Polysaccharide 00:00:00 [place] Med[facility] (groups A, C, Y and Branc h W-135) conjugate vaccine (MCV4P) HPV 2015-04-13 Completed University of 00:00:00 [facility] Meningococcal 2015-04-13 Completed University of Polysaccharide 00:00:00 [place] Med[facility] (groups A, C, Y and Branc h W-135) conjugate vaccine (MCV4P) TDAP (ADACEL) VACCINE 2015-04-13 Completed Uni versity of 00:00:00 [facility] TDAP (ADACEL) VACCINE 2015-04-13 Completed Uni versity of 00:00:00 [facility] HPV 2015-04-13 Completed University of 00:00:00 [facility] Meningococcal 2015-04-13 Completed University of Polysaccharide 00:00:00 [place] Medi [facility] (groups A, C, Y and Branc h W-135) conjugate vaccine (MCV4P) TDAP (ADACEL) VACCINE 2015-04-13 Completed Uni versity of 00:00:00 [facility] HPV 2015-04-13 Completed University of 00:00:00 [facility] Meningococcal 2015-04-13 Completed University of Polysaccharide 00:00:00 [place] Med[facility] (groups A, C, Y and Branc h W-135) conjugate vaccine (MCV4P) TDAP (ADACEL) VACCINE 2015-04-13 Completed Uni versity of 00:00:00 [facility] HPV 2015-04-13 Completed University of 00:00:00 [facility] Meningococcal 2015-04-13 Completed University of Polysaccharide 00:00:00 [place] [facility]i [facility] (groups A, C, Y and Branc h W-135) conjugate vaccine (MCV4P) TDAP (ADACEL) VACCINE 2015-04-13 Completed Uni versity of 00:00:00 [facility] HPV 2015-04-13 Completed University of 00:00:00 [facility] Meningococcal 2015-04-13 Completed University of Polysaccharide 00:00:00 [place] [facility]i [facility] (groups A, C, Y and Branc h W-135) conjugate vaccine (MCV4P) TDAP (ADACEL) VACCINE 2015-04-13 Completed Uni versity of 00:00:00 [facility] HPV 2012-06-29 Completed University of 00:00:00 [facility] HPV 2012-06-29 Completed University of 00:00:00 [facility] HPV 2012-06-29 Completed University of 00:00:00 [facility] Meningococcal 2009-12-12 Completed University of Polysaccharide 00:00:00 [place] Medi [facility] (groups A, C, Y and Branc h W-135) conjugate vaccine (MCV4P) Varicella 2009-12-12 Completed University of (varivax)(chicken 00:00:00 [place] M edical pox) Branch Meningococcal 2009-12-12 Completed University of Polysaccharide 00:00:00 [place] Medi [facility] (groups A, C, Y and Branc h W-135) conjugate vaccine (MCV4P) Varicella 2009-12-12 Completed University of (varivax)(chicken 00:00:00 [place] M edical pox) Branch Meningococcal 2009-12-12 Completed University of Polysaccharide 00:00:00 [facility] moiz (groups A, C, Y and Branc h W-135) conjugate vaccine (MCV4P) Varicella 2009-12-12 Completed University of (varivax)(chicken 00:00:00 [place] M [facility]ical pox) Branch HIB 4 Dose Schedule 2002-11-11 Completed Unive rsity of 00:00:00 [facility] Hep B, Adol or Pedi 2002-11-11 Completed Unive rsity of Dosage 00:00:00 [facility] MMR 2002-11-11 Completed University of 00:00:00 [facility] Polio (IPV/OPV) 2002-11-11 Completed Universit y of 00:00:00 [facility] Varicella 2002-11-11 Completed University of (varivax)(chicken 00:00:00 [place] [facility]ical pox) Branch DTAP 2002-11-11 Completed University of 00:00:00 [facility] Hep B, Adol or Pedi 2002-11-11 Completed Unive rsity of Dosage 00:00:00 [facility] HIB 4 Dose Schedule 2002-11-11 Completed Unive rsity of 00:00:00 [facility] Polio (IPV/OPV) 2002-11-11 Completed Universit y of 00:00:00 [facility] MMR 2002-11-11 Completed University of 00:00:00 [facility] Varicella 2002-11-11 Completed University of (varivax)(chicken 00:00:00 [place] [facility]ical pox) Branch DTAP 2002-11-11 Completed University of 00:00:00 [facility] HIB 4 Dose Schedule 2002-11-11 Completed Unive rsity of 00:00:00 [facility] Hep B, Adol or Pedi 2002-11-11 Completed Unive rsity of Dosage 00:00:00 [facility] MMR 2002-11-11 Completed University of 00:00:00 [facility] Polio (IPV/OPV) 2002-11-11 Completed Universit y of 00:00:00 [facility] Varicella 2002-11-11 Completed University of (varivax)(chicken 00:00:00 [place] [facility]ical pox) Branch DTAP 2002-11-11 Completed University of 00:00:00 [facility] Hep B, Adol or Pedi 2002-11-11 Completed Unive rsity of Dosage 00:00:00 [facility] HIB 4 Dose Schedule 2002-11-11 Completed Unive rsity of 00:00:00 [facility] Polio (IPV/OPV) 2002-11-11 Completed Universit y of 00:00:00 [facility] MMR 2002-11-11 Completed University of 00:00:00 [facility] Varicella 2002-11-11 Completed University of (varivax)(chicken 00:00:00 [place] [facility] pox) Branch DTAP 2002-11-11 Completed University of 00:00:00 [facility] HIB 4 Dose Schedule 2002-11-11 Completed Unive rsity of 00:00:00 [facility] Hep B, Adol or Pedi 2002-11-11 Completed Unive rsity of Dosage 00:00:00 [facility] MMR 2002-11-11 Completed University of 00:00:00 [facility] Polio (IPV/OPV) 2002-11-11 Completed Universit y of 00:00:00 [facility] Varicella 2002-11-11 Completed University of (varivax)(chicken 00:00:00 [place] [facility] pox) Branch DTAP 2002-11-11 Completed University of 00:00:00 [facility] Hep B, Adol or Pedi 2002-11-11 Completed Unive rsity of Dosage 00:00:00 [facility] HIB 4 Dose Schedule 2002-11-11 Completed Unive rsity of 00:00:00 [facility] Polio (IPV/OPV) 2002-11-11 Completed Universit y of 00:00:00 [facility] MMR 2002-11-11 Completed University of 00:00:00 [facility] Varicella 2002-11-11 Completed University of (varivax)(chicken 00:00:00 [place] [facility]ical pox) Branch DTAP 2002-11-11 Completed University of 00:00:00 [facility] HIB 4 Dose Schedule 2002-11-11 Completed Unive rsity of 00:00:00 [facility] Hep B, Adol or Pedi 2002-11-11 Completed Unive rsity of Dosage 00:00:00 [facility] MMR 2002-11-11 Completed University of 00:00:00 [facility] Polio (IPV/OPV) 2002-11-11 Completed Universit y of 00:00:00 [facility] Varicella 2002-11-11 Completed University of (varivax)(chicken 00:00:00 [place] [facility] [place] pox) Branch DTAP 2002-11-11 Completed University of 00:00:00 [facility] Hep B, Adol or Pedi 2002-11-11 Completed Unive rsity of Dosage 00:00:00 [facility] HIB 4 Dose Schedule 2002-11-11 Completed Unive rsity of 00:00:00 [facility] Polio (IPV/OPV) 2002-11-11 Completed Universit y of 00:00:00 [facility] MMR 2002-11-11 Completed University of 00:00:00 [facility] Varicella 2002-11-11 Completed University of (varivax)(chicken 00:00:00 [place] [facility] pox) Branch DTAP 2002-11-11 Completed University of 00:00:00 [facility] HIB 4 Dose Schedule 2002-11-11 Completed Unive rsity of 00:00:00 [facility] Hep B, Adol or Pedi 2002-11-11 Completed Unive rsity of Dosage 00:00:00 [facility] MMR 2002-11-11 Completed University of 00:00:00 [facility] Polio (IPV/OPV) 2002-11-11 Completed Universit y of 00:00:00 [facility] Varicella 2002-11-11 Completed University of (varivax)(chicken 00:00:00 [place] [facility]ical pox) Branch DTAP 2002-11-11 Completed University of 00:00:00 [facility] Hep B, Adol or Pedi 2002-11-11 Completed Unive rsity of Dosage 00:00:00 [facility] HIB 4 Dose Schedule 2002-11-11 Completed Unive rsity of 00:00:00 [facility] Polio (IPV/OPV) 2002-11-11 Completed Universit y of 00:00:00 [facility] MMR 2002-11-11 Completed University of 00:00:00 [facility] Varicella 2002-11-11 Completed University of (varivax)(chicken 00:00:00 [place] [facility] pox) Branch DTAP 2002-11-11 Completed University of 00:00:00 [facility] HIB 4 Dose Schedule 2002-11-11 Completed Unive rsity of 00:00:00 [facility] Hep B, Adol or Pedi 2002-11-11 Completed Unive rsity of Dosage 00:00:00 [facility] MMR 2002-11-11 Completed University of 00:00:00 [facility] Polio (IPV/OPV) 2002-11-11 Completed Universit y of 00:00:00 [facility] Varicella 2002-11-11 Completed University of (varivax)(chicken 00:00:00 [place] [facility]ical pox) Branch DTAP 2002-11-11 Completed University of 00:00:00 [facility] Hep B, Adol or Pedi 2002-11-11 Completed Unive rsity of Dosage 00:00:00 [facility] HIB 4 Dose Schedule 2002-11-11 Completed Unive rsity of 00:00:00 [facility] Polio (IPV/OPV) 2002-11-11 Completed Universit y of 00:00:00 [facility] MMR 2002-11-11 Completed University of 00:00:00 [facility] Varicella 2002-11-11 Completed University of (varivax)(chicken 00:00:00 [place] [facility] [place] pox) Branch DTAP 2002-11-11 Completed University of 00:00:00 [facility] DTAP 2002-11-11 Completed University of 00:00:00 [facility] HIB 4 Dose Schedule 2002-11-11 Completed Unive rsity of 00:00:00 [facility] HIB 4 Dose Schedule 2002-11-11 Completed Unive rsity of 00:00:00 [facility] Hep B, Adol or Pedi 2002-11-11 Completed Unive rsity of Dosage 00:00:00 [place] [facility] [facility] MMR 2002-11-11 Completed University of 00:00:00 [facility] Polio (IPV/OPV) 2002-11-11 Completed Universit y of 00:00:00 [facility] Varicella 2002-11-11 Completed University of (varivax)(chicken 00:00:00 [place] [facility] DTAP 2002-11-11 Completed University of 00:00:00 [facility] Hep B, Adol or Pedi 2002-11-11 Completed Unive rsity of Dosage 00:00:00 [facility] HIB 4 Dose Schedule 2002-11-11 Completed Unive rsity of 00:00:00 [facility] Polio (IPV/OPV) 2002-11-11 Completed Universit y of 00:00:00 [facility] MMR 2002-11-11 Completed University of 00:00:00 [facility] Hep B, Adol or Pedi 2002-11-11 Completed Unive rsity of Dosage 00:00:00 [facility] Varicella 2002-11-11 Completed University of (varivax)(chicken 00:00:00 [place] [facility] MMR 2002-11-11 Completed University of 00:00:00 [facility] DTAP 2002-11-11 Completed University of 00:00:00 [facility] HIB 4 Dose Schedule 2002-11-11 Completed Unive rsity of 00:00:00 [facility] Hep B, Adol or Pedi 2002-11-11 Completed Unive rsity of Dosage 00:00:00 [facility] MMR 2002-11-11 Completed University of 00:00:00 [facility] Polio (IPV/OPV) 2002-11-11 Completed Universit y of 00:00:00 [facility] Varicella 2002-11-11 Completed University of (varivax)(chicken 00:00:00 [place] [facility] Polio (IPV/OPV) 2002-11-11 Completed Universit y of 00:00:00 [facility] DTAP 2002-11-11 Completed University of 00:00:00 [facility] Hep B, Adol or Pedi 2002-11-11 Completed Unive rsity of Dosage 00:00:00 [facility] HIB 4 Dose Schedule 2002-11-11 Completed Unive rsity of 00:00:00 [facility] Polio (IPV/OPV) 2002-11-11 Completed Universit y of 00:00:00 [facility] MMR 2002-11-11 Completed University of 00:00:00 [facility] Varicella 2002-11-11 Completed University of (varivax)(chicken 00:00:00 [place] [facility] Varicella 2002-11-11 Completed University of (varivax)(chicken 00:00:00 [place] [facility]ox[facility] DTAP 2002-11-11 Completed University of 00:00:00 [facility] DTAP 2002-11-11 Completed University of 00:00:00 [facility] HIB 4 Dose Schedule 2002-11-11 Completed Unive rsity of 00:00:00 [facility] Hep B, Adol or Pedi 2002-11-11 Completed Unive rsity of Dosage 00:00:00 [facility] MMR 2002-11-11 Completed University of 00:00:00 [facility] Polio (IPV/OPV) 2002-11-11 Completed Universit y of 00:00:00 [facility] Varicella 2002-11-11 Completed University of (varivax)(chicken 00:00:00 [place] [facility]ox[facility] DTAP 2002-11-11 Completed University of 00:00:00 [facility] Hep B, Adol or Pedi 2002-11-11 Completed Unive rsity of Dosage 00:00:00 [facility] HIB 4 Dose Schedule 2002-11-11 Completed Unive rsity of 00:00:00 [facility] Hep B, Adol or Pedi 2002-11-11 Completed Unive rsity of Dosage 00:00:00 [facility] Polio (IPV/OPV) 2002-11-11 Completed Universit y of 00:00:00 [facility] MMR 2002-11-11 Completed University of 00:00:00 [facility] Varicella 2002-11-11 Completed University of (varivax)(chicken 00:00:00 [place] [facility] [facility] HIB 4 Dose Schedule 2002-11-11 Completed Unive rsity of 00:00:00 [facility] DTAP 2002-11-11 Completed University of 00:00:00 [facility] HIB 4 Dose Schedule 2002-11-11 Completed Unive rsity of 00:00:00 [facility] Hep B, Adol or Pedi 2002-11-11 Completed Unive rsity of Dosage 00:00:00 [facility] MMR 2002-11-11 Completed University of 00:00:00 [facility] Polio (IPV/OPV) 2002-11-11 Completed Universit y of 00:00:00 [facility] Varicella 2002-11-11 Completed University of (varivax)(chicken 00:00:00 [place] [facility]ox[facility] Polio (IPV/OPV) 2002-11-11 Completed Universit y of 00:00:00 [facility] DTAP 2002-11-11 Completed University of 00:00:00 [facility] Hep B, Adol or Pedi 2002-11-11 Completed Unive rsity of Dosage 00:00:00 [facility] HIB 4 Dose Schedule 2002-11-11 Completed Unive rsity of 00:00:00 [facility] Polio (IPV/OPV) 2002-11-11 Completed Universit y of 00:00:00 [facility] MMR 2002-11-11 Completed University of 00:00:00 [facility] Varicella 2002-11-11 Completed University of (varivax)(chicken 00:00:00 [place] [facility] [facility] MMR 2002-11-11 Completed University of 00:00:00 [facility] Varicella 2002-11-11 Completed University of (varivax)(chicken 00:00:00 [place] [facility]ox[facility] DTAP 2002-11-11 Completed University of 00:00:00 [facility] HIB 4 Dose Schedule 2002-11-11 Completed Unive rsity of 00:00:00 [facility] Hep B, Adol or Pedi 2002-11-11 Completed Unive rsity of Dosage 00:00:00 [facility] MMR 2002-11-11 Completed University of 00:00:00 [facility] Polio (IPV/OPV) 2002-11-11 Completed Universit y of 00:00:00 [facility] Varicella 2002-11-11 Completed University of (varivax)(chicken 00:00:00 [place] [facility] [facility] DTAP 2002-11-11 Completed University of 00:00:00 [facility] Hep B, Adol or Pedi 2002-11-11 Completed Unive rsity of Dosage 00:00:00 [facility] HIB 4 Dose Schedule 2002-11-11 Completed Unive rsity of 00:00:00 [facility] Polio (IPV/OPV) 2002-11-11 Completed Universit y of 00:00:00 [facility] MMR 2002-11-11 Completed University of 00:00:00 [facility] Varicella 2002-11-11 Completed University of (varivax)(chicken 00:00:00 [place] [facility]ox[facility] DTAP 2002-11-11 Completed University of 00:00:00 [facility] HIB 4 Dose Schedule 2002-11-11 Completed Unive rsity of 00:00:00 [facility] Hep B, Adol or Pedi 2002-11-11 Completed Unive rsity of Dosage 00:00:00 [facility] MMR 2002-11-11 Completed University of 00:00:00 [facility] Polio (IPV/OPV) 2002-11-11 Completed Universit y of 00:00:00 [facility] Varicella 2002-11-11 Completed University of (varivax)(chicken 00:00:00 [place] [facility] DTAP 2002-11-11 Completed University of 00:00:00 [facility] Hep B, Adol or Pedi 2002-11-11 Completed Unive rsity of Dosage 00:00:00 [facility] HIB 4 Dose Schedule 2002-11-11 Completed Unive rsity of 00:00:00 [facility] Polio (IPV/OPV) 2002-11-11 Completed Universit y of 00:00:00 [facility] MMR 2002-11-11 Completed University of 00:00:00 [facility] Varicella 2002-11-11 Completed University of (varivax)(chicken 00:00:00 [place] [facility]ox[facility] DTAP 2002-11-11 Completed University of 00:00:00 [facility] HIB 4 Dose Schedule 2002-11-11 Completed Unive rsity of 00:00:00 [facility] Hep B, Adol or Pedi 2002-11-11 Completed Unive rsity of Dosage 00:00:00 [facility] MMR 2002-11-11 Completed University of 00:00:00 [facility] Polio (IPV/OPV) 2002-11-11 Completed Universit y of 00:00:00 [facility] Varicella 2002-11-11 Completed University of (varivax)(chicken 00:00:00 [place] [facility] DTAP 2002-11-11 Completed University of 00:00:00 [facility] Hep B, Adol or Pedi 2002-11-11 Completed Unive rsity of Dosage 00:00:00 [facility] HIB 4 Dose Schedule 2002-11-11 Completed Unive rsity of 00:00:00 [facility] Polio (IPV/OPV) 2002-11-11 Completed Universit y of 00:00:00 [facility] MMR 2002-11-11 Completed University of 00:00:00 [facility] Varicella 2002-11-11 Completed University of (varivax)(chicken 00:00:00 [place] [facility] DTAP 2002-11-11 Completed University of 00:00:00 [facility] HIB 4 Dose Schedule 2002-11-11 Completed Unive rsity of 00:00:00 [facility] Hep B, Adol or Pedi 2002-11-11 Completed Unive rsity of Dosage 00:00:00 [facility] MMR 2002-11-11 Completed University of 00:00:00 [facility] Polio (IPV/OPV) 2002-11-11 Completed Universit y of 00:00:00 [facility] Varicella 2002-11-11 Completed University of (varivax)(chicken 00:00:00 [place] [facility]ox[facility] DTAP 2002-11-11 Completed University of 00:00:00 [facility] Hep B, Adol or Pedi 2002-11-11 Completed Unive rsity of Dosage 00:00:00 [facility] HIB 4 Dose Schedule 2002-11-11 Completed Unive rsity of 00:00:00 [facility] Polio (IPV/OPV) 2002-11-11 Completed Universit y of 00:00:00 [facility] MMR 2002-11-11 Completed University of 00:00:00 [facility] Varicella 2002-11-11 Completed University of (varivax)(chicken 00:00:00 [place] [facility] pox[facility] DTAP 2002-11-11 Completed University of 00:00:00 [facility] HIB 4 Dose Schedule 2002-11-11 Completed Unive rsity of 00:00:00 [facility] Hep B, Adol or Pedi 2002-11-11 Completed Unive rsity of Dosage 00:00:00 [facility] MMR 2002-11-11 Completed University of 00:00:00 [facility] Polio (IPV/OPV) 2002-11-11 Completed Universit y of 00:00:00 [facility] Varicella 2002-11-11 Completed University of (varivax)(chicken 00:00:00 [place] [facility] pox[facility] DTAP 2002-11-11 Completed University of 00:00:00 [facility] Hep B, Adol or Pedi 2002-11-11 Completed Unive rsity of Dosage 00:00:00 [facility] HIB 4 Dose Schedule 2002-11-11 Completed Unive rsity of 00:00:00 [facility] Polio (IPV/OPV) 2002-11-11 Completed Universit y of 00:00:00 [facility] MMR 2002-11-11 Completed University of 00:00:00 [facility] Varicella 2002-11-11 Completed University of (varivax)(chicken 00:00:00 [place] [facility] pox) [facility] DTAP 2002-11-11 Completed University [facility] 00:00:00 [facility] Vital Signs Vital Name Observation Time Observation Value Comments Source Systolic blood 2022-01-17 03:00:00 119 mm[Hg] Univer sity of pressure [facility] Diastolic blood 2022-01-17 03:00:00 62 mm[Hg] Unive rsity of pressure [facility] Heart rate 2022-01-17 03:00:00 68 /min Universi ty of [facility] Respiratory rate 2022-01-17 03:00:00 16 /[facility] saturation in 2022-01-17 03:00:00 100 /min [facility] Arterial blood by [facility] Pulse oximetry Branch Body temperature 2022-01-17 02:03:00 37.28 Roselia Univ ersity of [facility] Body height 2022-01-17 02:03:00 165.1 cm Universi ty of [facility] Body weight 2022-01-17 02:03:00 90.719 kg Universi ty of [facility] BMI 2022-01-17 02:03:00 33.28 kg/m2 Universi ty of [facility] Systolic blood 2019-05-27 20:39:00 107 mm[Hg] Univer sity of [facility] Diastolic blood 2019-05-27 20:39:00 63 mm[Hg] Unive rsity of pressure [facility] Heart rate 2019-05-27 20:39:00 77 /min Universi ty of [facility] Body temperature 2019-05-27 20:39:00 36.94 Roselia Univ ersity of [facility] Respiratory rate 2019-05-27 20:39:00 18 /min Univ ersity of [facility] Body height 2019-05-27 20:39:00 165.1 cm Universi ty of [facility] Body weight 2019-05-27 20:39:00 98.431 kg Universi ty of [facility] BMI 2019-05-27 20:39:00 36.11 kg/m2 Universi ty [...] 2019-05-27 20:39:00 36.11 kg/m2 Universi ty of [facility] Systolic blood 2019-05-17 21:39:00 114 mm[Hg] Univer sity of pressure [facility] Diastolic blood 2019-05-17 21:39:00 71 mm[Hg] Unive rsity of pressure [facility] Heart rate 2019-05-17 21:39:00 103 /min Universi ty of [facility] Body temperature 2019-05-17 21:39:00 37.11 Roselia Univ ersity of [facility] Respiratory rate 2019-05-17 21:39:00 18 /min Univ ersity of [facility] Body height 2019-05-17 21:39:00 165.1 [...] 2019-05-17 21:39:00 18 /min Univ ersity of [facility] Body height 2019-05-17 21:39:00 165.1 cm [facility]i ty [facility] [place] [facility] [place] Body weight 2019-05-17 21:39:00 100.154 kg Universi ty of [facility] BMI 2019-05-17 21:39:00 36.74 kg/m2 Universi ty of [facility] Systolic blood 2019-05-04 18:09:00 135 mm[Hg] Univer sity of [facility] Diastolic blood 2019-05-04 18:09:00 68 mm[Hg] Unive rsity of pressure [facility] Heart rate 2019-05-04 18:09:00 96 /min Universi ty of [facility] Body temperature 2019-05-04 18:09:00 36.78 Roselia [facility] Respiratory rate 2019-05-04 18:09:00 22 /min [facility] Oxygen saturation in 2019-05-04 18:09:00 100 /min [facility] Arterial blood by [facility] Pulse oximetry Branch Systolic blood 2019-04-29 21:00:00 127 mm[Hg] Univer sity of [facility] Diastolic blood 2019-04-29 21:00:00 68 mm[Hg] Unive rsity of [facility] Heart rate 2019-04-29 21:00:00 87 /min Universi ty of [facility] Body temperature 2019-04-29 21:00:00 36.39 Roselia [facility] Respiratory rate 2019-04-29 21:00:00 20 /min [facility] Body height 2019-04-29 21:00:00 165.1 cm [facility] ty [facility] [place] [facility] [place] Body weight 2019-04-29 21:00:00 98.431 kg Universi ty of [facility] BMI 2019-04-29 21:00:00 36.11 kg/m2 [facility] Procedures Procedure Date / Time Performing Clinician Source Performed LIPASE 2022-01-17 03:09:00 Yvonne Siddiqi [facility] COMP. METABOLIC PANEL 2022-01-17 03:09:00 Yvonne Siddiqi [facility] ([id number]) [facility] CBC WITH DIFF 2022-01-17 03:09:00 Yvonne Siddiqi [facility] POCT TEST 2022-01-17 02:14:00 [facility] URINALYSIS 2022-01-17 02:10:00 Husam [facility] NOTICE OF PRIVACY 2022-01-17 01:36:28 Doctor Unassigned, No Univ [facility] CONSENT/REFUSAL FOR 2022-01-17 01:36:18 Doctor Unassigned, No [facility] TDAP (ADACEL) 2019-05-27 20:41:37 Ne[facility] IMMUNIZATION [facility] US ABDOMEN LIMITED 2019-05-17 22:45:16 [facility]ENEFITS 2019-05-17 22:12:10 Doctor Unassigned, No [facility] URINALYSIS 2019-05-04 18:55:00 Chasidy Bolaños [facility] ADC CLC OR LCC ONLY - 2019-05-04 18:55:00 Chasidy Bolaños [facility] ADC ONLY - FERN TEST 2019-05-04 18:54:00 Chasidy Bolaños [facility] CONSENT/REFUSAL FOR 2019-05-04 17:47:16 Doctor Unassigned, No Un [facility] [place] DIAGNOSIS AND TREATMENT [facility] Encounters Start End Encounter Admission Attending Care Care Encounter Source Date/Time Date/Time Type Type Clinicians Facility Department ID 2022-08-02 Emergency [facility] HFD [id number] [facility] - 05:16:57 [place] 2021-07-08 Outpatient [facility] [id number] [place] 14:21:14 [id number] [facility] 2022-08-02 2022-08-02 Emergency E [facility] [id number] [facility] 04:26:00 11:34:00 2022-01-16 2022-01-17 Emergency X DEVANG [facility] ERT [id number] Univers 21:05:00 00:11:00 YVONNE [facility] 2022-01-16 2022-01-17 Emergency [facility] [id number] Univers 21:05:00 00:11:00 Yvonne POPE [id number] i ty of [id number] [phone] [address] 2021-04-19 2021-04-19 Outpatient R POLO, [facility] [id number] Univers 13:15:00 13:15:00 HUY franco o f [facility] 2021-02-06 2021-02-06 Case Summer Belcher [id number] 00:00:00 00:00:00 Management Jennifer Harrell [id number] [place] [id number] [facility] 2021-02-06 2021-02-06 Summer Recinos [id number] Univers 00:00:00 00:00:00 Management Jennifer Harrell [id number] [id number] [id number] [address] 2020-12-12 2020-12-12 [facility] [id number] 00:00:00 00:00:00 Outreach [place] [facility] [id number] [place] [facility] [id number] PAVILLION [id number] [facility] 2020-12-12 2020-12-12 [facility] [id number] Univers 00:00:00 00:00:00 Outreach [place] PRIMARY [id number] i ty of [id number] [phone] Dc dical [facility] Branch 2020-02-28 2020-02-28 Outpatient R NEENA [facility] [id number] Univers 15:00:00 15:00:00 ITZEL franco [facility] 2019-12-18 2019-12-18 Outpatient R NORMA [facility] [id number] Univers 17:30:00 17:30:00 KRISSY franco [facility] 2019-11-18 2019-11-18 Outpatient R NEENA [facility] [id number] Univers 14:30:00 14:30:00 ITZEL ity of [facility] 2019-05-27 2019-05-[address] [facility] [id number] 14:41:30 15:54:53 Itzel Pope [id number] Visit [place] [id number] Professio [id number] [address] 2019-05-27 2019-05-[address] [facility] [id number] Univers 14:41:30 15:54:53 Itzel Pope [id number] ity of Visit [place] [id number] [facility] Professio [id number] Dc dical [address] 2019-05-17 2019-05-17 [facility] [id number] [facility] 17:15:00 23:59:00 Encounter Itzle Pope [id number] ity of [place] [id number] [facility] s [place] [id number] [facility] [address] [place] 2019-05-17 2019-05-17 Data Entry Coordinator 1, Adc Lab [facility] [id number] Univers 17:21:30 17:36:30 Visit Chasidy Bolaños [id number] ity of [place] [id number] [facility] [place] [id number] [facility] [address] [place] 2019-05-17 2019-05-17 Office [facility] [id number] 15:55:01 16:56:25 Visit Itzel Pope [id number] [place] [id number] Professio [id number] [address] 2019-05-17 2019-05-17 Office [facility] [id number] Univers 15:55:01 16:56:25 Visit Itzel Pope [id number] i ty of [id number] [phone] [address] 2019-05-17 2019-05-17 Orders Doctor MAY [id number] Univers 00:00:00 00:00:00 Only Unassigned, ZACKERY [id number] ity of [facility] [id number] Juan as [id number] [facility] [address] [place] 2019-05-05 2019-05-05 Telephone [facility] [id number] Univers 00:00:00 00:00:00 Itzel Pope [id number] i ty of [id number] [id number] [address] 2019-05-04 2019-05-04 Data Entry Coordinator 1, Adc Lab [facility] [id number] Univers 15:07:01 15:22:01 Visit Chasidy Bolaños [id number] ity of [id number] [place] [phone] [facility] [address] [place] 2019-05-04 2019-05-04 Hospital Raisa Bolañosen [facility] [id number] Univers 12:48:00 14:57:00 Encounter Pedro Pope [id number] ity of [id number] [id number] [facility] [address] [place] 2019-05-04 2019-05-04 Telephone [facility] [id number] Univers 00:00:00 00:00:00 Itzel Pope [id number] i ty of [id number] [phone] [address] 2019-05-04 2019-05-04 Orders Doctor MAY [id number] Univers 00:00:00 00:00:00 Only Unassigned, ZACKERY [id number] ity of [place] [facility] [id number] Juan as [phone] [facility] moiz [address] 2019-04-30 2019-04-30 Case Neena, [facility] [id number] Univers 00:00:00 00:00:00 Management Itzel NOC2 Healthcare [id number] ity of Surgical [id number] Juan as Specialti [id number] Me dical es [address] [place] [employer] 2019-04-29 2019-04-29 Routine Bolaños, Chasidy [facility] [id number] [facility] 15:40:17 16:18:51 [facility] [id number] ity of Visit [place] 4[place]7.2.686 [place] [id number] Me dical nal [address] Results Test Description Test Time Test Comments Results Result Comments Source COMP. METABOLIC PANEL (00445) 2022-01-17 03:31:19 Test Item Value Reference Range Interpretation Comme nts NA (test code = 4416635000) 139 mmol/L 135-145 K (test code = 5058523105) 4.2 mmol/L 3.5-5.0 CL (test code = 1966331246) 105 mmol/L 98-108 CO2 TOTAL (test code = 1934281499) 23 mmol/L 23-31 AGAP (test code = 9127239469) 2-16 BUN (test code = 9110220495) 9 mg/dL 7-23 GLUCOSE (test code = 9478653430) 94 mg/dL 70-110 CREATININE (test code = 0.61 mg/dL 0.50-1.04 3019195607) TOTAL BILI (test code = 0.9 mg/dL 0.1-1.7 1846246199) CALCIUM (test code = 8206192323) 9.4 mg/dL 8.6-10.6 T PROTEIN (test code = 8578977222) 8.3 g/dL 6.3-8.2 H ALBUMIN (test code = 5151247960) 4.7 g/dL 3.5-5.0 ALK PHOS (test code = 6392499913) 87 U/L 34-122 ALTv (test code = 1742-6) 11 U/L 5-35 AST(SGOT) (test code = 8850571981) 19 U/L 13-40 eGFR (test code = 1793131776) mL/min/1.73m2 TIERRA (test code = TIERRA) Association [...] tests). Lab Interpretation (test code = Abnormal 30189-6) [facility] 03[facility]19 Test Item Value Reference Range Interpretation Comments LIPASE (test code = 9288965337) 68 U/L 0-220 Lab Interpretation (test code = Normal 21858-4) [facility] WITH [id number] 03:28:58 Test Item Value Reference Range Interpretation Comments WBC (test code = See_Comment [Automated 7190-2) message] The sy stem which generated this [...] RDW-SD (test code = 43.8 fL 39.0-49.9 17330-0) RDW-CV (test code = 15.2 % 12.0-15.5 788-0) PLT (test code = See_Comment [Automated 777-3) message] The sy stem which generated this result transmitted reference range : 166 - 358 10*3/ ?L. The reference r suzi was not used to interpret this result as normal/abnormal . MPV (test code = 11.3 fL 9.5-12.9 28904-6) NRBC/100 WBC (test See_Comment [Automat ed code = 4027519574) message] The system which generated this result transmitted reference range : 0.0 - 10.0 /100 WBCs. The refer ence range was not u sed to interpret th is result as normal/abnormal . NRBC x10^3 (test code <0.01 See_Comment [Auto mated = 8628231819) message] The s ystem which generated this result transmitted reference range : 10*3/?L. The reference range was not used to interpret this result as normal/abnormal . GRAN MAT (NEUT) % 71.7 % (test code = 770-8) IMM GRAN % (test code 0.20 % = 6842149217) LYMPH % (test code = 22.5 % 736-9) MONO % (test code = 4.2 % 5905-5) EOS % (test code = 0.8 % 713-8) BASO % (test code = 0.6 % 706-2) GRAN MAT x10^3(ANC) 6.26 10*3/uL 1.88-7.09 (test code = 1645973230) IMM GRAN x10^3 (test <0.03 0.00-0.06 code = 8557348181) LYMPH x10^3 (test code 1.96 10*3/uL 1.32-3.29 = 731-0) MONO x10^3 (test code 0.37 10*3/uL 0.33-0.92 = 742-7) EOS x10^3 (test code = 0.07 10*3/uL 0.03-0.39 711-2) BASO x10^3 (test code 0.05 10*3/uL 0.01-0.07 = 704-7) Lab Interpretation Abnormal (test code = 61855-3) [facility] [id number] 02:14:00 Test Item Value Reference Range Interpretation Comments POCT PREG (test code = 1605) negative On board controls acceptable with present C Line (test code = 3574) POCT PREG LOT # (test code = 3575) [id number] POCT PREG TEST DATE (test 06/21/2023 code = 3576) Lab Interpretation (test code = Normal 95112-3) [facility] ABDOMEN [id number] 23:14:22 Cholelithiasis with no evidence of acute [...] report.[facility]2019-08-13 19:31:00 Test Item Value Reference Range Interpretation Comments APPEARANCE (test code Slightly Cloudy Clear A = 6297638295) COLOR (test code = Yellow Yellow 1531134729) PH (test code = 4.8-8.0 8344523423) SP GRAVITY (test code <=1.005 1.003-1.030 = 1542135971) GLU U QUAL (test code Negative Negative = 8677056921) BLOOD (test code = Negative Negative 7753734545) KETONES (test code = Negative Negative 4406777338) PROTEIN (test code = Negative Negative 2887-8) UROBILIN (test code = 0.2 mg/dL See_Comment [Auto mated 5128352245) message] The system which generated this result transmit refugio reference range : 0-1.0 mg/dL. Th e reference range was not used to interpret this result as normal/abnormal . BILIRUBIN (test code Negative Negative = 7311320937) NITRITE (test code = Negative Negative 5233929358) LE[place] SUMMER (test code Large Negative A = 3257140398) RBC/HPF (test code = See_Comment [Autom ated 3132864384) message] The system which generated this result transmit refugio reference range : 0 - 3 HPF. The reference range was not used to interpret this result as normal/abnormal . WBC/HPF (test code = See_Comment H [Autom ated 6788458820) message] The system which generated this result transmit refugio reference range : 0 - 5 HPF. The reference range was not used to interpret this result as normal/abnormal . BACTERIA (test code = Moderate Negative A 7498253613) SQ EPITH (test code = HPF 4587522197) Lab Interpretation Abnormal (test code = 13895-7) [facility]LC OR [facility] ONLY - WET [id number] 19:28:00 Test Item Value Reference Range Interpretation Comments Wet Prep (test code No Trichomonas vaginalis = 3052196518) present [facility] ONLY - FERN [id number] 19:24:00 Test Item Value Reference Range Interpretation Comments Fern Test (test code = 0855698750) Negative [facility]"
[2023-02-01 17:26] VITALS: BP 134/90; TEMP 98; O2SAT 100
== END 2023-02-01 16:45 | disposition home or self-care (01) ==
LOC: ER 15:22
DX: O20.0 Threatened abortion (principal)
CPT/HCPCS: 36415; 81001; 81025; 84702; 99283

== ENCOUNTER 2023-02-12 11:36 | Emergency (ER) | payer SELFPAY ==
--- OUTSIDE RECORDS SUMMARY | 2023-02-12 11:41 | XMS REPORT | Continuity of Care Document ---
:2000 Author Organization [facility] t Address [address] [place] [address] Care Team Providers Name Role Phone Stacey Prakash Primary Care Physician KRYSTAL VELASCO Attending Clinician Unavailable STACEY CUELLAR Attending Clinician Unavailable Krystal Velasco CNM Attending Clinician LEEROY DENG Attending Clinician Unavailable YVONNE SIDDIQI Attending Clinician Unavailable Yvonne Rodriguez Attending Clinician Jennifer Belcher LMSW Attending Clinician Unavailable Broderick Melton DO Attending Clinician ITZEL CHAUDHARY Attending Clinician Unavailable KRISSY GREEN Attending Clinician Unavailable Itzel Chaudhary PA-C Attending Clinician 1, [facility] Attending Clinician Unavailable Chasidy Bolaños MD Attending Clinician Doctor Unassigned, [place] Attending Clinician Unavailable Chasidy Bolaños MD Admitting Clinician Payers Payer Name Policy Type Policy Number Effective Date Expiration Date Leno trammell MEDICAID PENDING PENDING 2023 00:00:00 [facility] STAR [id number] 2018 00:00:00 Problems Condition Condition Condition Status Onset Resolution Last Treating Co mments Source Name Details Category Date Date Treatment Clinician Date Obesity Obesity Disease Active Univers affecting affecting 5-23 [place] Nausea and Nausea and Disease Active U nivers vomiting vomiting 5-23 ity of during during 00:00: [place] 00 [facility] Branch History of History of Disease Active Overview : Univers heart heart - Formattin ity of murmur in murmur in 00:00: [place] childhood childhood 00 note [facility] might be Branch different from the original. Age 12 Family Family Disease Active Overview: Univer s history of history of - Formattin ity of autism autism 00:00: g of this [place] note Medical might be Branch different from the original. Patient sister and daughter Nexplanon Nexplanon Disease Active 2018-09 Uni vers insertion insertion 2-16 ity of 00:00: [place] [facility] Nexplanon Nexplanon Disease Active 2018-[address] in place 2-16 ity of 00:00: [place] [facility] Encounter Encounter Disease Active 2018-09 Uni vers for female for female 2-16 it y of 00:00: [place] control control 00 Medical Branch Anemia, Anemia, Disease Active 2018-09 Univers antepartum antepartum 1-12 it y of , third , third 00:00: [place] trimester trimester 00 [facility] Branch Obesity Obesity Disease Active Univers (BMI (BMI 4-15 ity of 30-39.9) 30-39.9) 00:00: [place] [facility] History of History of Disease Active U nivers depression depression 4-15 it y of 00:00: [place] [facility] History of History of Disease Active U nivers anxiety anxiety 4-15 ity of and and 00:00: [place] depression depression 00 Me dical Branch Allergies, Adverse Reactions, Alerts Allergy Allergy Status Severity Reaction(s) Onset Inactive Treating Comm ents Source Name Type Date Date Clinician NO KNOWN Drug Active Univers ALLERGIE Class ity of S [facility] Social History Social Habit Start Date Stop Date Quantity Comments Source ASSERTION 2023-01-10 University 00:00:00 [facility] History of Passive smoker University of tobacco use [facility] Alcohol intake 2023-02-11 2023-02-11 Current University of 00:00:00 00:00:00 non-drinker of [place] [facility] alcohol (finding) [place] Tobacco Comment 2023-02-11 2023-02-11 fiance smokes Univer sity of 00:00:00 00:00:00 outside [facility] Tobacco use and 2023-02-11 2023-02-11 Smokeless tobacco Un iversity of exposure 00:00:00 00:00:00 non-user [facility] Exposure to 2022-01-06 2022-01-16 Unable to assess Univers ity of SARS-CoV-2 00:00:00 20:33:[address] [facility] (event) [place] Sex Ass[birth year] At [birth year] Universit y of 00:00:00 00:00:00 [facility] Smoking Status Start Date Stop Date Source Never smoked tobacco [facility] [place] Medications Ordered Filled Start Stop Current Ordering [...] dose, On 01/16/22 at 2300, ABHAY ondansetron Yes [id number] 4mg Take 1 Univers 4 mg 4-27 tablet by ity of disintegrat 00:00: mouth [place] ing tablet 00 every 8 Medica l (eight) Branch hours as needed for Nausea and Vomiting (N/V). ondansetron Yes [id number] 4mg Take 1 Univers 4 mg 4-27 tablet by ity of disintegrat 00:00: mouth [place] ing tablet 00 every 8 Medica l (eight) Branch hours as needed for Nausea and Vomiting (N/V). azithromyci Yes [id number] 250mg Take 1 Univers n 250 mg 3-28 tablet by ity of tablet 00:00: mouth [place] 00 daily. Medical Take 500 Branch mg day 1, then 250 mg days 2 to 5. azithromyci Yes [id number] 250mg Take 1 Univers n 250 mg 3-28 tablet by ity of tablet 00:00: mouth [place] 00 daily. Medical Take 500 Branch mg day 1, then 250 mg days 2 to 5. azithromyci Yes [id number] 250mg Take 1 Univers n 250 mg 3-28 tablet by ity of tablet 00:00: mouth [place] 00 daily. Medical Take 500 Branch mg day 1, then 250 mg days 2 to 5. azithromyci 3- No [id number] 250mg Take 1 Univers n 250 mg 3-28 05-23 tablet by ity o f tablet 00:00: 00:00 mouth [place] 00 :00 daily. Medical Take 500 Branch mg day 1, then 250 mg days 2 to 5. Nitrofurant 2019- No [id number] 100mg Take 1 Univers oin&Nit. 05-04 capsule by ity of Macrocryst 00:00: 04:59 mouth 2 [place] as 100 mg 00 :00 (two) Medical capsule times Branch daily for 7 days. metroNIDAZO Yes [id number] 500mg Take 1 Univers LE 500 mg 8-09 tablet by ity o f tablet 00:00: mouth [place] 00 every 12 Medical (twelve) Branch hours. metroNIDAZO Yes [id number] 500mg Take 1 Univers LE 500 mg 8-09 tablet by ity o f tablet 00:00: mouth [place] 00 every 12 Medical (twelve) Branch hours. metroNIDAZO Yes [id number] 500mg Take 1 Univers LE 500 mg 8-09 tablet by ity o f tablet 00:00: mouth [place] 00 every 12 Medical (twelve) Branch hours. metroNIDAZO 2019- No [id number] 500mg Take 1 Univers LE 500 mg 8-13 tablet by ity of tablet 00:00: 00:00 mouth [place] 00 :00 every 12 Medical (twelve) Branch hours. fluconazole Yes [id number] 200mg Take 1 Univers (DIFLUCAN) 8-08 tablet by ity of 200 mg 00:00: mouth [place] tablet 00 daily. [facility] Branch fluconazole Yes [id number] 200mg Take 1 Univers (DIFLUCAN) 8-08 tablet by ity of 200 mg 00:00: mouth [place] tablet 00 daily. [facility] Branch fluconazole Yes [id number] 200mg Take 1 Univers (DIFLUCAN) 8-08 tablet by ity of 200 mg 00:00: mouth [place] tablet 00 daily. [facility] Branch fluconazole Yes [id number] 200mg Take 1 Univers (DIFLUCAN) 8-08 tablet by ity of 200 mg 00:00: mouth [place] tablet 00 daily. [facility] Branch fluconazole 2019- No [id number] 200mg Take 1 Univers (DIFLUCAN) 8-08 -13 tablet by ity of 200 mg 00:00: 00:00 mouth [place] tablet 00 :00 daily. [facility] Branch [id number], Yes [id number] Take 1 Univers carb,glu-FA 4-15 9106 TAB-CAP/M2 it y of -dss-dha 00:00: by mouth [place] (CITRANATAL 00 daily. Medica l DHA, ALGAL Branch OIL,) 27 mg iron-1 mg -50 mg-250 mg Cmpk [id number], Yes [id number] Take 1 Univers carb,glu-FA 4-15 9106 TAB-CAP/M2 it y of -dss-dha 00:00: by mouth [place] (CITRANATAL 00 daily. Medica l DHA, ALGAL Branch OIL,) 27 mg iron-1 mg -50 mg-250 mg Cmpk [id number], Yes [id number] Take 1 Univers carb,glu-FA 4-15 9106 TAB-CAP/M2 it y of -dss-dha 00:00: by mouth [place] (CITRANATAL 00 daily. Medica l DHA, ALGAL Branch OIL,) 27 mg iron-1 mg -50 mg-250 mg Cmpk [id number], 2019-0 Yes [id number] Take 1 Univers carb,glu-FA 4-15 9106 TAB-CAP/M2 it y of -dss-dha 00:00: by mouth [place] (CITRANATAL 00 daily. Medica l DHA, ALGAL Branch OIL,) 27 mg iron-1 mg -50 mg-250 mg Cmpk [id number], 2019-0 Yes [id number] Take 1 Univers carb,glu-FA 4-15 9106 TAB-CAP/M2 it y of -dss-dha 00:00: by mouth [place] (CITRANATAL 00 daily. Medica l DHA, ALGAL Branch OIL,) 27 mg iron-1 mg -50 mg-250 mg Cmpk [id number], 2019-0 Yes [id number] Take 1 Univers carb,glu-FA 4-15 9106 TAB-CAP/M2 it y of -dss-dha 00:00: by mouth [place] (CITRANATAL 00 daily. Medica l DHA, ALGAL Branch OIL,) 27 mg iron-1 mg -50 mg-250 mg Cmpk [id number], 2019-0 Yes [id number] Take 1 Univers carb,glu-FA 4-15 9106 TAB-CAP/M2 it y of -dss-dha 00:00: by mouth [place] (CITRANATAL 00 daily. Medica l DHA, ALGAL Branch OIL,) 27 mg iron-1 mg -50 mg-250 mg Cmpk [id number], 2019-0 Yes [id number] Take 1 Univers carb,glu-FA 4-15 9106 TAB-CAP/M2 it y of -dss-dha 00:00: by mouth [place] (CITRANATAL 00 daily. Medica l DHA, ALGAL Branch OIL,) 27 mg iron-1 mg -50 mg-250 mg Cmpk [id number], 2019-0 Yes [id number] Take 1 Univers carb,glu-FA 4-15 9106 TAB-CAP/M2 it y of -dss-dha 00:00: by mouth [place] (CITRANATAL 00 daily. Medica l DHA, ALGAL Branch OIL,) 27 mg iron-1 mg -50 mg-250 mg Cmpk [id number], 2019-0 Yes [id number] Take 1 Univers carb,glu-FA 4-15 9106 TAB-CAP/M2 it y of -dss-dha 00:00: by mouth [place] (CITRANATAL 00 daily. Medica l DHA, ALGAL Branch OIL,) 27 mg iron-1 mg -50 mg-250 mg Cmpk [id number], 2018-0 Yes [id number] Take 1 Univers carb,glu-FA 4-15 9106 TAB-CAP/M2 it y of -dss-dha 00:00: by mouth [place] (CITRANATAL 00 daily. Medica l DHA, ALGAL Branch OIL,) 27 mg iron-1 mg -50 mg-250 mg Cmpk [id number], 2018-0 Yes [id number] Take 1 Univers carb,glu-FA 4-15 9106 TAB-CAP/M2 it y of -dss-dha 00:00: by mouth [place] (CITRANATAL 00 daily. Medica l DHA, ALGAL Branch OIL,) 27 mg iron-1 mg -50 mg-250 mg Cmpk [id number], 2018-0 Yes [id number] Take 1 Univers carb,glu-FA 4-15 9106 TAB-CAP/M2 it y of -dss-dha 00:00: by mouth [place] (CITRANATAL 00 daily. Medica l DHA, ALGAL Branch OIL,) 27 mg iron-1 mg -50 mg-250 mg Cmpk Immunizations Ordered Immunization Filled Immunization Date Status Commen ts Source Name Name SARS-COV-2 COVID-19 2021-11-01 Completed Unive rsity of VACCINE - (MODERNA) 00:00:00 [facility] SARS-COV-2 COVID-19 2021-06-08 Completed Unive rsity of VACCINE - (MODERNA) 00:00:00 [facility] Influenza Virus 2019-06-29 Completed Universit y of [...] VACCINE 2019-05-27 Completed Uni versity of 00:00:00 [place] [facility] TDAP (ADACEL) VACCINE 2019-05-27 Completed Uni versity of 00:00:00 [place] [facility] TDAP (ADACEL) VACCINE 2019-05-27 Completed Uni versity of 00:00:00 [place] [facility] TDAP (ADACEL) VACCINE 2019-05-27 Completed Uni versity of 00:00:00 [place] [facility] TDAP (ADACEL) VACCINE 2019-04-01 Completed Uni versity of 00:00:00 [place] [facility] TDAP (ADACEL) VACCINE 2019-04-01 Completed Uni versity of 00:00:[address] [facility] Branch TDAP (ADACEL) VACCINE 2019-04-01 Completed Uni versity of 00:00:[address] [facility] Branch TDAP (ADACEL) VACCINE 2019-04-01 Completed Uni versity of 00:00:00 [place] [facility] TDAP (ADACEL) VACCINE 2019-04-01 Completed Uni versity of 00:00:00 [place] [facility] TDAP (ADACEL) VACCINE 2019-04-01 Completed Uni versity of 00:00:00 [place] [facility] TDAP (ADACEL) VACCINE 2019-04-01 Completed Uni versity of 00:00:[address] [facility] Branch TDAP (ADACEL) VACCINE 2019-04-01 Completed Uni versity of 00:00:00 [place] [facility] TDAP (ADACEL) VACCINE 2019-04-01 Completed Uni versity of 00:00:00 [place] [facility] TDAP (ADACEL) VACCINE 2019-04-01 Completed Uni versity of 00:00:00 [place] [facility] TDAP (ADACEL) VACCINE 2019-04-01 Completed Uni versity of 00:00:00 [place] [facility] TDAP (ADACEL) VACCINE 2019-04-01 Completed Uni versity of 00:00:00 [place] [facility] TDAP (ADACEL) VACCINE 2019-04-01 Completed Uni versity of 00:00:00 [place] [facility] TDAP (ADACEL) VACCINE 2019-04-01 Completed Uni versity of 00:00:00 [place] [facility] TDAP (ADACEL) VACCINE 2019-04-01 Completed Uni versity of 00:00:00 [place] [facility] TDAP (ADACEL) VACCINE 2019-04-01 Completed Uni versity of 00:00:[address] [facility] Branch TDAP (ADACEL) VACCINE 2019-04-01 Completed Uni versity of 00:00:00 [facility] Influenza Virus 2019-01-04 Completed Universit [...] Branch HPV 2015-04-13 Completed University of 00:00:00 [facility] Meningococcal 2015-04-13 Completed University of Polysaccharide 00:00:00 [place] [facility] (groups A, C, Y and Branc h W-135) conjugate vaccine (MCV4P) TDAP (ADACEL) VACCINE 2015-04-13 Completed Uni versity of 00:00:00 [facility] HPV 2015-04-13 Completed University of 00:00:00 [facility] Meningococcal 2015-04-13 Completed University of Polysaccharide 00:00:00 [place] [facility] (groups A, C, Y and Branc h W-135) conjugate vaccine (MCV4P) TDAP (ADACEL) VACCINE 2015-04-13 Completed Uni versity of 00:00:00 [facility] HPV 2015-04-13 Completed University of 00:00:00 [facility] Meningococcal 2015-04-13 Completed University of Polysaccharide 00:00:00 [place] Medi [facility] (groups A, C, Y and Branc h W-135) conjugate vaccine (MCV4P) TDAP (ADACEL) VACCINE 2015-04-13 Completed Uni versity of 00:00:00 [facility] HPV 2015-04-13 Completed University of 00:00:00 [facility] Meningococcal 2015-04-13 Completed University of Polysaccharide 00:00:00 [place] Medi [facility] (groups A, C, Y and Branc h W-135) conjugate vaccine (MCV4P) TDAP (ADACEL) VACCINE 2015-04-13 Completed Uni versity of 00:00:00 [facility] HPV 2015-04-13 Completed University of 00:00:00 [facility] Meningococcal 2015-04-13 Completed University of Polysaccharide 00:00:00 [place] [facility] (groups A, C, Y and Branc h W-135) conjugate vaccine (MCV4P) TDAP (ADACEL) VACCINE 2015-04-13 Completed Uni versity of 00:00:00 [facility] HPV 2015-04-13 Completed University of 00:00:00 [facility] Meningococcal 2015-04-13 Completed University of Polysaccharide 00:00:00 [place] Medi moiz (groups A, C, Y and Branc h W-135) conjugate vaccine (MCV4P) TDAP (ADACEL) VACCINE 2015-04-13 Completed Uni versity of 00:00:00 [facility] HPV 2015-04-13 Completed University of 00:00:00 [facility] Meningococcal 2015-04-13 Completed University of Polysaccharide 00:00:00 [place] Medi [facility] (groups A, C, Y and Branc h W-135) conjugate vaccine (MCV4P) TDAP (ADACEL) VACCINE 2015-04-13 Completed Uni versity of 00:00:00 [facility] HPV 2015-04-13 Completed University of 00:00:00 [facility] Meningococcal 2015-04-13 Completed University of Polysaccharide 00:00:00 [place] [facility] (groups A, C, Y and Branc h W-135) conjugate vaccine (MCV4P) TDAP (ADACEL) VACCINE 2015-04-13 Completed Uni versity of 00:00:00 [facility] HPV 2015-04-13 Completed University of 00:00:00 [facility] Meningococcal 2015-04-13 Completed University of Polysaccharide 00:00:00 [place] Medi [facility] (groups A, C, Y and Branc h W-135) conjugate vaccine (MCV4P) TDAP (ADACEL) VACCINE 2015-04-13 Completed Uni versity of 00:00:00 [facility] HPV 2015-04-13 Completed University of 00:00:00 [facility] Meningococcal 2015-04-13 Completed University of Polysaccharide 00:00:00 [place] Medi [facility] (groups A, C, Y and Branc h W-135) conjugate vaccine (MCV4P) TDAP (ADACEL) VACCINE 2015-04-13 Completed Uni versity of 00:00:00 [facility] HPV 2015-04-13 Completed University of 00:00:00 [facility] Meningococcal 2015-04-13 Completed University of Polysaccharide 00:00:00 [place] Medi [facility] (groups A, C, Y and Branc h W-135) conjugate vaccine (MCV4P) HPV 2015-04-13 Completed University of 00:00:00 [facility] Meningococcal 2015-04-13 Completed University of Polysaccharide 00:00:00 [place] Medi [facility] (groups A, C, Y and Branc h W-135) conjugate vaccine (MCV4P) TDAP (ADACEL) VACCINE 2015-04-13 Completed Uni versity of 00:00:[address] [facility] Branch TDAP (ADACEL) VACCINE 2015-04-13 Completed Uni versity of 00:00:00 [facility] HPV 2015-04-13 Completed University of 00:00:00 [facility] Meningococcal 2015-04-13 Completed University of Polysaccharide 00:00:00 [place] Medi [facility] (groups A, C, Y and Branc h W-135) conjugate vaccine (MCV4P) TDAP (ADACEL) VACCINE 2015-04-13 Completed Uni versity of 00:00:00 [facility] HPV 2015-04-13 Completed University of 00:00:00 [facility] Meningococcal 2015-04-13 Completed University of Polysaccharide 00:00:00 [place] [facility] (groups A, C, Y and Branc h W-135) conjugate vaccine (MCV4P) TDAP (ADACEL) VACCINE 2015-04-13 Completed Uni versity of 00:00:00 [facility] HPV 2015-04-13 Completed University of 00:00:00 [facility] Meningococcal 2015-04-13 Completed University of Polysaccharide 00:00:00 [place] [facility]i [facility] (groups A, C, Y and Branc h W-135) conjugate vaccine (MCV4P) TDAP (ADACEL) VACCINE 2015-04-13 Completed Uni versity of 00:00:00 [facility] HPV 2015-04-13 Completed University of 00:00:00 [facility] Meningococcal 2015-04-13 Completed University of Polysaccharide 00:00:00 [place] [facility]i [facility] (groups A, C, Y and Branc h W-135) conjugate vaccine (MCV4P) TDAP (ADACEL) VACCINE 2015-04-13 Completed Uni versity of 00:00:00 [facility] HPV 2015-04-13 Completed University of 00:00:00 [facility] Meningococcal 2015-04-13 Completed University of Polysaccharide 00:00:00 [place] [facility] (groups A, C, Y and Branc h W-135) conjugate vaccine (MCV4P) TDAP (ADACEL) VACCINE 2015-04-13 Completed Uni versity of 00:00:00 [facility] HPV 2012-06-29 Completed University of 00:00:00 [facility] HPV 2012-06-29 Completed University of 00:00:00 [facility] HPV 2012-06-29 Completed University of 00:00:00 [facility] HPV 2012-06-29 Completed University of 00:00:00 [facility] Meningococcal 2009-12-12 Completed University of Polysaccharide 00:00:00 [place] [facility] (groups A, C, Y and Branc h W-135) conjugate vaccine (MCV4P) Varicella 2009-12-12 Completed University of (varivax)(chicken 00:00:00 [place] M edical pox) Branch Meningococcal 2009-12-12 Completed University of Polysaccharide 00:00:00 [place] [facility] (groups A, C, Y and Branc h W-135) conjugate vaccine (MCV4P) Varicella 2009-12-12 Completed University of (varivax)(chicken 00:00:00 [place] M edical pox) Branch Meningococcal 2009-12-12 Completed University of Polysaccharide 00:00:00 [place] [facility] (groups A, C, Y and Branc h W-135) conjugate vaccine (MCV4P) Varicella 2009-12-12 Completed University of (varivax)(chicken 00:00:00 [place] M edical pox) Branch Meningococcal 2009-12-12 Completed University of Polysaccharide 00:00:00 [place] [facility] (groups A, C, Y and Branc h W-135) conjugate vaccine (MCV4P) Varicella 2009-12-12 Completed University of (varivax)(chicken 00:00:00 [place] M edical pox) Branch HEPATITIS A 2009-12-12 Completed University of 00:00:00 [facility] Tetanus/Diptheria 2009-12-12 Completed Univers ity of 00:00:00 [facility] DTaP, Unspecified 2003-04-28 Completed Univers ity of Formulation 00:00:00 [facility] MMR 2003-04-28 Completed University of 00:00:00 [facility] IPV 2003-04-28 Completed University of 00:00:00 [facility] HIB 4 Dose Schedule 2002-11-11 Completed Unive rsity of 00:00:00 [facility] Hep B, Adol or Pedi 2002-11-11 Completed Unive rsity of Dosage 00:00:00 [facility] MMR 2002-11-11 Completed University of 00:00:00 [facility] Polio (IPV/OPV) 2002-11-11 Completed Universit y of 00:00:00 [facility] Varicella 2002-11-11 Completed University of (varivax)(chicken 00:00:00 [place] M edical pox) Branch DTAP 2002-11-11 Completed University of 00:00:00 [facility] Hep B, Adol or Pedi 2002-11-11 Completed Unive rsity of Dosage 00:00:00 [facility] HIB 4 Dose Schedule 2002-11-11 Completed Unive rsity of 00:00:00 [facility] Polio (IPV/OPV) 2002-11-11 Completed Universit y of 00:00:00 [facility] MMR 2002-11-11 Completed University of 00:00:00 [facility] Varicella 2002-11-11 Completed University of (varivax)(chicken 00:00:00 [facility] edical pox) Branch DTAP 2002-11-11 Completed University of 00:00:00 [facility] HIB 4 Dose Schedule 2002-11-11 Completed Unive rsity of 00:00:00 [facility] Hep B, Adol or Pedi 2002-11-11 Completed Unive rsity of Dosage 00:00:00 [facility] MMR 2002-11-11 Completed University of 00:00:00 [facility] Polio (IPV/OPV) 2002-11-11 Completed Universit y of 00:00:00 [facility] Varicella 2002-11-11 Completed University of (varivax)(chicken 00:00:00 [place] [facility] pox) Branch DTAP 2002-11-11 Completed University of 00:00:00 [facility] Hep B, Adol or Pedi 2002-11-11 Completed Unive rsity of Dosage 00:00:00 [facility] HIB 4 Dose Schedule 2002-11-11 Completed Unive rsity of 00:00:00 [facility] Polio (IPV/OPV) 2002-11-11 Completed Universit y of 00:00:00 [facility] MMR 2002-11-11 Completed University of 00:00:00 [facility] Varicella 2002-11-11 Completed University of (varivax)(chicken 00:00:00 [place] [facility]ical pox) Branch DTAP 2002-11-11 Completed University of 00:00:00 [facility] HIB 4 Dose Schedule 2002-11-11 Completed Unive rsity of 00:00:00 [facility] Hep B, Adol or Pedi 2002-11-11 Completed Unive rsity of Dosage 00:00:00 [facility] MMR 2002-11-11 Completed University of 00:00:00 [facility] Polio (IPV/OPV) 2002-11-11 Completed Universit y of 00:00:00 [facility] Varicella 2002-11-11 Completed University of (varivax)(chicken 00:00:00 [place] [facility]ical pox) Branch DTAP 2002-11-11 Completed University of 00:00:00 [facility] Hep B, Adol or Pedi 2002-11-11 Completed Unive rsity of Dosage 00:00:00 [facility] HIB 4 Dose Schedule 2002-11-11 Completed Unive rsity of 00:00:00 [facility] Polio (IPV/OPV) 2002-11-11 Completed Universit y of 00:00:00 [facility] MMR 2002-11-11 Completed University of 00:00:00 [facility] Varicella 2002-11-11 Completed University of (varivax)(chicken 00:00:00 [place] [facility]ical pox) Branch DTAP 2002-11-11 Completed University of 00:00:00 [facility] HIB 4 Dose Schedule 2002-11-11 Completed Unive rsity of 00:00:00 [facility] Hep B, Adol or Pedi 2002-11-11 Completed Unive rsity of Dosage 00:00:00 [facility] MMR 2002-11-11 Completed University of 00:00:00 [facility] Polio (IPV/OPV) 2002-11-11 Completed Universit y of 00:00:00 [facility] Varicella 2002-11-11 Completed University of (varivax)(chicken 00:00:00 [place] [facility]ical pox) Branch DTAP 2002-11-11 Completed University of 00:00:00 [facility] Hep B, Adol or Pedi 2002-11-11 Completed Unive rsity of Dosage 00:00:00 [facility] HIB 4 Dose Schedule 2002-11-11 Completed Unive rsity of 00:00:00 [facility] Polio (IPV/OPV) 2002-11-11 Completed Universit y of 00:00:00 [facility] MMR 2002-11-11 Completed University of 00:00:00 [facility] Varicella 2002-11-11 Completed University of (varivax)(chicken 00:00:00 [place] [facility]ical pox) Branch DTAP 2002-11-11 Completed University of 00:00:00 [facility] HIB 4 Dose Schedule 2002-11-11 Completed Unive rsity of 00:00:00 [facility] Hep B, Adol or Pedi 2002-11-11 Completed Unive rsity of Dosage 00:00:00 [facility] MMR 2002-11-11 Completed University of 00:00:00 [facility] Polio (IPV/OPV) 2002-11-11 Completed Universit y of 00:00:00 [facility] Varicella 2002-11-11 Completed University of (varivax)(chicken 00:00:00 [place] [facility] DTAP 2002-11-11 Completed University of 00:00:00 [facility] Hep B, Adol or Pedi 2002-11-11 Completed Unive rsity of Dosage 00:00:00 [facility] HIB 4 Dose Schedule 2002-11-11 Completed Unive rsity of 00:00:00 [facility] Polio (IPV/OPV) 2002-11-11 Completed Universit y of 00:00:00 [facility] MMR 2002-11-11 Completed University of 00:00:00 [facility] Varicella 2002-11-11 Completed University of (varivax)(chicken 00:00:00 [place] [facility] DTAP 2002-11-11 Completed University of 00:00:00 [facility] HIB 4 Dose Schedule 2002-11-11 Completed Unive rsity of 00:00:00 [facility] Hep B, Adol or Pedi 2002-11-11 Completed Unive rsity of Dosage 00:00:00 [facility] MMR 2002-11-11 Completed University of 00:00:00 [facility] Polio (IPV/OPV) 2002-11-11 Completed Universit y of 00:00:00 [facility] Varicella 2002-11-11 Completed University of (varivax)(chicken 00:00:00 [place] [facility] DTAP 2002-11-11 Completed University of 00:00:00 [facility] Hep B, Adol or Pedi 2002-11-11 Completed Unive rsity of Dosage 00:00:00 [facility] HIB 4 Dose Schedule 2002-11-11 Completed Unive rsity of 00:00:00 [facility] Polio (IPV/OPV) 2002-11-11 Completed Universit y of 00:00:00 [facility] MMR 2002-11-11 Completed University of 00:00:00 [facility] Varicella 2002-11-11 Completed University of (varivax)(chicken 00:00:00 [place] [facility] DTAP 2002-11-11 Completed University of 00:00:00 [facility] DTAP 2002-11-11 Completed University of 00:00:00 [facility] HIB 4 Dose Schedule 2002-11-11 Completed Unive rsity of 00:00:00 [facility] HIB 4 Dose Schedule 2002-11-11 Completed Unive rsity of 00:00:00 [facility] Hep B, Adol or Pedi 2002-11-11 Completed Unive rsity of Dosage 00:00:00 [facility] MMR 2002-11-11 Completed University of 00:00:00 [facility] Polio (IPV/OPV) 2002-11-11 Completed Universit y of 00:00:00 [facility] Varicella 2002-11-11 Completed University of (varivax)(chicken 00:00:00 [place] [facility] DTAP 2002-11-11 Completed University of 00:00:00 [facility] Hep B, Adol or Pedi 2002-11-11 Completed Unive rsity of Dosage 00:00:00 [facility] HIB 4 Dose Schedule 2002-11-11 Completed Unive rsity of 00:00:00 [facility] Polio (IPV/OPV) 2002-11-11 Completed Universit y of 00:00:00 [facility] MMR 2002-11-11 Completed University of 00:00:00 [facility] Hep B, Adol or Pedi 2002-11-11 Completed Unive rsity of Dosage 00:00:00 [facility] Varicella 2002-11-11 Completed University of (varivax)(chicken 00:00:00 [place] [facility] MMR 2002-11-11 Completed University of 00:00:00 [facility] DTAP 2002-11-11 Completed University of 00:00:00 [facility] HIB 4 Dose Schedule 2002-11-11 Completed Unive rsity of 00:00:00 [facility] Hep B, Adol or Pedi 2002-11-11 Completed Unive rsity of Dosage 00:00:00 [facility] MMR 2002-11-11 Completed University of 00:00:00 [facility] Polio (IPV/OPV) 2002-11-11 Completed Universit y of 00:00:00 [facility] Varicella 2002-11-11 Completed University of (varivax)(chicken 00:00:00 [place] [facility] Polio (IPV/OPV) 2002-11-11 Completed Universit y of 00:00:00 [facility] DTAP 2002-11-11 Completed University of 00:00:00 [facility] Hep B, Adol or Pedi 2002-11-11 Completed Unive rsity of Dosage 00:00:00 [facility] HIB 4 Dose Schedule 2002-11-11 Completed Unive rsity of 00:00:00 [facility] Polio (IPV/OPV) 2002-11-11 Completed Universit y of 00:00:00 [facility] MMR 2002-11-11 Completed University of 00:00:00 [facility] Varicella 2002-11-11 Completed University of (varivax)(chicken 00:00:00 [place] [facility] Varicella 2002-11-11 Completed University of (varivax)(chicken 00:00:00 [place] [facility] DTAP 2002-11-11 Completed University of 00:00:00 [facility] DTAP 2002-11-11 Completed University of 00:00:00 [facility] HIB 4 Dose Schedule 2002-11-11 Completed Unive rsity of 00:00:00 [facility] Hep B, Adol or Pedi 2002-11-11 Completed Unive rsity of Dosage 00:00:00 [facility] MMR 2002-11-11 Completed University of 00:00:00 [facility] Polio (IPV/OPV) 2002-11-11 Completed Universit y of 00:00:00 [facility] Varicella 2002-11-11 Completed University of (varivax)(chicken 00:00:00 [place] [facility] DTAP 2002-11-11 Completed University of 00:00:00 [facility] Hep B, Adol or Pedi 2002-11-11 Completed Unive rsity of Dosage 00:00:00 [facility] HIB 4 Dose Schedule 2002-11-11 Completed Unive rsity of 00:00:00 [facility] Hep B, Adol or Pedi 2002-11-11 Completed Unive rsity of Dosage 00:00:00 [facility] Polio (IPV/OPV) 2002-11-11 Completed Universit y of 00:00:00 [facility] MMR 2002-11-11 Completed University of 00:00:00 [facility] Varicella 2002-11-11 Completed University of (varivax)(chicken 00:00:00 [place] [facility] HIB 4 Dose Schedule 2002-11-11 Completed Unive rsity of 00:00:00 [facility] DTAP 2002-11-11 Completed University of 00:00:00 [facility] HIB 4 Dose Schedule 2002-11-11 Completed Unive rsity of 00:00:00 [facility] Hep B, Adol or Pedi 2002-11-11 Completed Unive rsity of Dosage 00:00:00 [facility] MMR 2002-11-11 Completed University of 00:00:00 [facility] Polio (IPV/OPV) 2002-11-11 Completed Universit y of 00:00:00 [facility] Varicella 2002-11-11 Completed University of (varivax)(chicken 00:00:00 [place] [facility] Polio (IPV/OPV) 2002-11-11 Completed Universit y of 00:00:00 [facility] DTAP 2002-11-11 Completed University of 00:00:00 [facility] Hep B, Adol or Pedi 2002-11-11 Completed Unive rsity of Dosage 00:00:00 [facility] HIB 4 Dose Schedule 2002-11-11 Completed Unive rsity of 00:00:00 [facility] Polio (IPV/OPV) 2002-11-11 Completed Universit y of 00:00:00 [facility] MMR 2002-11-11 Completed University of 00:00:00 [facility] Varicella 2002-11-11 Completed University of (varivax)(chicken 00:00:00 [place] [facility] MMR 2002-11-11 Completed University of 00:00:00 [facility] Varicella 2002-11-11 Completed University of (varivax)(chicken 00:00:00 [place] [facility] DTAP 2002-11-11 Completed University of 00:00:00 [facility] HIB 4 Dose Schedule 2002-11-11 Completed Unive rsity of 00:00:00 [facility] Hep B, Adol or Pedi 2002-11-11 Completed Unive rsity of Dosage 00:00:00 [facility] MMR 2002-11-11 Completed University of 00:00:00 [facility] Polio (IPV/OPV) 2002-11-11 Completed Universit y of 00:00:00 [facility] Varicella 2002-11-11 Completed University of (varivax)(chicken 00:00:00 [place] [facility] DTAP 2002-11-11 Completed University of 00:00:00 [facility] Hep B, Adol or Pedi 2002-11-11 Completed Unive rsity of Dosage 00:00:00 [facility] HIB 4 Dose Schedule 2002-11-11 Completed Unive rsity of 00:00:00 [facility] Polio (IPV/OPV) 2002-11-11 Completed Universit y of 00:00:00 [facility] MMR 2002-11-11 Completed University of 00:00:00 [facility] Varicella 2002-11-11 Completed University of (varivax)(chicken 00:00:00 [place] [facility]ox[facility] DTAP 2002-11-11 Completed University of 00:00:00 [facility] HIB 4 Dose Schedule 2002-11-11 Completed Unive rsity of 00:00:00 [facility] Hep B, Adol or Pedi 2002-11-11 Completed Unive rsity of Dosage 00:00:00 [facility] MMR 2002-11-11 Completed University of 00:00:00 [facility] Polio (IPV/OPV) 2002-11-11 Completed Universit y of 00:00:00 [facility] Varicella 2002-11-11 Completed University of (varivax)(chicken 00:00:00 [place] [facility]ox[facility] DTAP 2002-11-11 Completed University of 00:00:00 [facility] Hep B, Adol or Pedi 2002-11-11 Completed Unive rsity of Dosage 00:00:00 [facility] HIB 4 Dose Schedule 2002-11-11 Completed Unive rsity of 00:00:00 [facility] Polio (IPV/OPV) 2002-11-11 Completed Universit y of 00:00:00 [facility] MMR 2002-11-11 Completed University of 00:00:00 [facility] Varicella 2002-11-11 Completed University of (varivax)(chicken 00:00:00 [place] [facility]ox[facility] DTAP 2002-11-11 Completed University of 00:00:00 [facility] HIB 4 Dose Schedule 2002-11-11 Completed Unive rsity of 00:00:00 [facility] Hep B, Adol or Pedi 2002-11-11 Completed Unive rsity of Dosage 00:00:00 [facility] MMR 2002-11-11 Completed University of 00:00:00 [facility] Polio (IPV/OPV) 2002-11-11 Completed Universit y of 00:00:00 [facility] Varicella 2002-11-11 Completed University of (varivax)(chicken 00:00:00 [facility] edical pox) Branch DTAP 2002-11-11 Completed University of 00:00:00 [facility] Hep B, Adol or Pedi 2002-11-11 Completed Unive rsity of Dosage 00:00:00 [facility] HIB 4 Dose Schedule 2002-11-11 Completed Unive rsity of 00:00:00 [facility] Polio (IPV/OPV) 2002-11-11 Completed Universit y of 00:00:00 [facility] MMR 2002-11-11 Completed University of 00:00:00 [facility] Varicella 2002-11-11 Completed University of (varivax)(chicken 00:00:00 [place] [facility] DTaP, Unspecified 2002-11-11 Completed Univers ity of Formulation 00:00:00 [facility] IPV 2002-11-11 Completed University of 00:00:00 [facility] DTAP 2002-11-11 Completed University of 00:00:00 [facility] HIB 4 Dose Schedule 2002-11-11 Completed Unive rsity of 00:00:00 [facility] Hep B, Adol or Pedi 2002-11-11 Completed Unive rsity of Dosage 00:00:00 [facility] MMR 2002-11-11 Completed University of 00:00:00 [facility] Polio (IPV/OPV) 2002-11-11 Completed Universit y of 00:00:00 [facility] Varicella 2002-11-11 Completed University of (varivax)(chicken 00:00:00 [place] [facility] pox[facility] DTAP 2002-11-11 Completed University of 00:00:00 [facility] Hep B, Adol or Pedi 2002-11-11 Completed Unive rsity of Dosage 00:00:00 [facility] HIB 4 Dose Schedule 2002-11-11 Completed Unive rsity of 00:00:00 [facility] Polio (IPV/OPV) 2002-11-11 Completed Universit y of 00:00:00 [facility] MMR 2002-11-11 Completed University of 00:00:00 [facility] Varicella 2002-11-11 Completed University of (varivax)(chicken 00:00:00 [place] [facility] pox[facility] DTAP 2002-11-11 Completed University of 00:00:00 [facility] HIB 4 Dose Schedule 2002-11-11 Completed Unive rsity of 00:00:00 [facility] Hep B, Adol or Pedi 2002-11-11 Completed Unive rsity of Dosage 00:00:00 [facility] MMR 2002-11-11 Completed University of 00:00:00 [facility] Polio (IPV/OPV) 2002-11-11 Completed Universit y of 00:00:00 [facility] Varicella 2002-11-11 Completed University of (varivax)(chicken 00:00:00 [place] [facility] pox[facility] DTAP 2002-11-11 Completed University of 00:00:00 [facility] Hep B, Adol or Pedi 2002-11-11 Completed Unive rsity of Dosage 00:00:00 [facility] HIB 4 Dose Schedule 2002-11-11 Completed Unive rsity of 00:00:00 [facility] Polio (IPV/OPV) 2002-11-11 Completed Universit y of 00:00:00 [facility] MMR 2002-11-11 Completed University of 00:00:00 [facility] Varicella 2002-11-11 Completed University of (varivax)(chicken 00:00:00 [place] [facility]ox[facility] DTAP 2002-11-11 Completed University of 00:00:00 [facility] DTaP, Unspecified 1999-05-14 Completed Univers ity of Formulation 00:00:00 [facility] HIB 4 Dose Schedule 1999-05-14 Completed Unive rsity of 00:00:00 [facility] Poliovirus, Live, 1999-05-14 Completed Univers ity of Oral, Trivalent 00:00:00 [facility] DTaP, Unspecified 1999-01-26 Completed Univers ity of Formulation 00:00:00 [facility] Hep B, Adol or Pedi 1999-01-26 Completed Unive rsity of Dosage 00:00:00 [facility] HIB 4 Dose Schedule 1999-01-26 Completed Unive rsity of 00:00:00 [facility] Poliovirus, Live, 1999-01-26 Completed Univers ity of Oral, Trivalent 00:00:00 [facility] Hep B, Adol or Pedi 1998 Completed Unive rsity of Dosage 00:00:00 [facility] Vital Signs Vital Name Observation Time Observation Value Comments Source Systolic blood 2023-02-11 18:05:00 112 mm[Hg] Univer sity of pressure [facility] Diastolic blood 2023-02-11 18:05:00 64 mm[Hg] Unive rsity of pressure [facility] Heart rate 2023-02-11 18:05:00 73 /min [facility] Body temperature 2023-02-11 18:05:00 36.78 Ros[place] [facility] 2023-02-11 18:05:00 18 /min [facility] Body height 2023-02-11 18:05:00 165.1 cm [facility] Body weight 2023-02-11 18:05:00 88.508 kg [facility] BMI 2023-02-11 18:05:00 32.47 kg/m2 [facility] Systolic blood 2022-01-17 03:00:00 119 mm[Hg] Univer sity of pressure [facility] Diastolic blood 2022-01-17 03:00:00 62 mm[Hg] Unive rsity of [facility] Heart rate 2022-01-17 03:00:00 68 /min [facility] Respiratory rate 2022-01-17 03:00:00 16 /min [facility] Oxygen saturation in 2022-01-17 03:00:00 100 /min [facility] Arterial blood by [facility] Pulse oximetry Branch Body temperature 2022-01-17 02:03:00 37.28 Roselia [facility] Body height 2022-01-17 02:03:00 165.1 cm [facility] [place] [facility] Body weight 2022-01-17 02:03:00 90.719 kg [facility] BMI 2022-01-17 02:03:00 33.28 kg/m2 [facility] [place] [facility] Systolic blood 2019-05-27 20:39:00 107 mm[Hg] Univer [facility]ity of pressure [facility] Diastolic blood 2019-05-27 20:39:00 63 mm[Hg] Unive rsity of pressure [facility] Heart rate 2019-05-27 20:39:00 77 /min [facility] [place] [facility] Body temperature 2019-05-27 20:39:00 36.94 [place] [facility] [place] [facility] Respiratory rate 2019-05-27 20:39:00 18 /min [facility] Body height 2019-05-27 20:39:00 165.1 cm [facility] Body weight 2019-05-27 20:39:00 98.431 kg [facility] [place] [facility] BMI 2019-05-27 20:39:00 36.11 kg/m2 [facility] [place] [facility] Systolic blood 2019-05-27 20:39:00 107 mm[Hg] Univer sity of pressure [facility] Diastolic blood 2019-05-27 20:39:00 63 mm[Hg] Unive rsity of pressure [facility] Heart rate 2019-05-27 20:39:00 77 /min [facility] [place] [facility] Body temperature 2019-05-27 20:39:00 36.94 [place] [facility] [place] [facility] Respiratory rate 2019-05-27 20:39:00 18 /min Univ [facility] Body height 2019-05-27 20:39:00 165.1 cm [facility] Body weight 2019-05-27 20:39:00 98.431 kg [facility] BMI 2019-05-27 20:39:00 36.11 kg/m2 [facility] Systolic blood 2019-05-17 21:39:00 114 mm[Hg] Univer sity of pressure [facility] Diastolic blood 2019-05-17 21:39:00 71 mm[Hg] Unive rsity of pressure [facility] Heart rate 2019-05-17 21:39:00 103 /min [facility] Body temperature 2019-05-17 21:39:00 37.11 [place] [facility] Respiratory rate 2019-05-17 21:39:00 18 /min [facility] Body height 2019-05-17 21:39:00 165.1 cm [facility] Body weight 2019-05-17 21:39:00 100.154 kg [facility] [place] [facility] BMI 2019-05-17 21:39:00 36.74 kg/m2 [facility] [place] [facility] Systolic blood 2019-05-17 21:39:00 114 mm[Hg] Univer sity of pressure [facility] Diastolic blood 2019-05-17 21:39:00 71 mm[Hg] Unive rsity of pressure [facility] Heart rate 2019-05-17 21:39:00 103 /min [facility] [place] [facility] Body temperature 2019-05-17 21:39:00 37.11 Roselia [facility] ersity of [facility] Respiratory rate 2019-05-17 21:39:00 18 /min Univ ers[facility] Body height 2019-05-17 21:39:00 165.1 cm [facility] Body weight 2019-05-17 21:39:00 100.154 kg [facility] [place] [facility] BMI 2019-05-17 21:39:00 36.74 kg/m2 [facility] Systolic blood 2019-05-04 18:09:00 135 mm[Hg] Univer [facility]ity of pressure [facility] Diastolic blood 2019-05-04 18:09:00 68 mm[Hg] Unive rsity of pressure [facility] Heart rate 2019-05-04 18:09:00 96 /min [facility] [place] [facility] Body temperature 2019-05-04 18:09:00 36.78 Roselia [facility] ersity of [facility] Respiratory rate 2019-05-04 18:09:00 22 /min Univ ersity of [facility] Oxygen saturation in 2019-05-04 18:09:00 100 /min University of Arterial blood by [facility] Pulse oximetry Branch Systolic blood 2019-04-29 21:00:00 127 mm[Hg] Univer sity of pressure [facility] Diastolic blood 2019-04-29 21:00:00 68 mm[Hg] Unive rsity of pressure [facility] Heart rate 2019-04-29 21:00:00 87 /min [facility] Body temperature 2019-04-29 21:00:00 36.39 [place] [facility] Respiratory rate 2019-04-29 21:00:00 20 /min [facility] Body height 2019-04-29 21:00:00 165.1 cm [facility] Body weight 2019-04-29 21:00:00 98.431 kg [facility] BMI 2019-04-29 21:00:00 36.11 kg/m2 [facility] Procedures Procedure Date / Time Performing Clinician Source Performed POCT URINALYSIS W/O 2023-02-11 18:03:00 Krystal Velasco [facility] SPECIFIC GRAVITY [facility] POCT TEST 2023-02-11 18:02:00 Krystal Velasco [facility] LIPASE 2022-01-17 03:09:00 Yvonne Siddiqi [facility] COMP. METABOLIC PANEL 2022-01-17 03:09:00 Yvonne Siddiqi [facility] ([id number]) [facility] CBC WITH DIFF 2022-01-17 03:09:00 Yvonne Siddiqi [facility] POCT TEST 2022-01-17 02:14:00 Abraham Weiner [facility] URINALYSIS 2022-01-17 02:10:00 Abraham Weiner [facility] NOTICE OF PRIVACY 2022-01-17 01:36:28 Doctor Unassigned, No [facility] PRACTICES Name Medical Branch CONSENT/REFUSAL FOR 2022-01-17 01:36:18 [facility] TDAP (ADACEL) 2019-05-27 20:41:37 Neena [facility] IMMUNIZATION [facility] US ABDOMEN LIMITED 2019-05-17 22:45:16 Itzel Chaudhary [facility] ASSIGNMENT OF BENEFITS 2019-05-17 22:12:10 Doctor Unassigned, No [facility] Name [facility] Branch URINALYSIS 2019-05-04 18:55:00 Chasidy Bolaños [place] [facility] ADC CLC OR LCC ONLY - 2019-05-04 18:55:00 Chasidy Bolaños [facility] ADC ONLY - FERN TEST 2019-05-04 18:54:00 Chasidy Bolaños [facility] CONSENT/REFUSAL FOR 2019-05-04 17:47:16 Doctor Unassigned, No [facility] DIAGNOSIS AND TREATMENT Name [facility] Encounters Start End Encounter Admission Attending Care Care Encounter Source Date/Time Date/Time Type Type Clinicians Facility Department ID 2022-08-02 Emergency HFD HFD [id number] [facility] - 05:16:57 [facility] 2021-07-08 Outpatient [facility] [id number] [place] 14:21:14 [id number] [facility]ly [facility] 2023-03-11 2023-03-11 Outpatient R ROD [facility] [id number] Univers 12:45:00 12:45:00 [facility] 2023-02-11 2023-02-11 Outpatient R ROD [facility] [id number] Univers 13:00:00 14:23:32 [facility] 2023-02-11 2023-02-11 [facility] [id number] Univers 13:00:00 14:23:32 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 [id number] ity of Visit REGIONAL [id number] Juan as MATERNAL [id number] Med ical & CHILD [address] [place] [address] 2023-02-10 2023-02-10 Outpatient R POLO [facility] [id number] Univers 08:30:00 08:30:00 STACEY y o f [facility] 2022-08-02 2022-08-02 Emergency E LEEROY DENG [facility] [id number] [facility] 04:26:00 11:34:00 2022-01-16 2022-01-17 Emergency X DEVANG [facility] ERT [id number] Univers 21:05:00 00:11:00 YVONNE franco of [facility] 2022-01-16 2022-01-17 Emergency [facility] [id number] Univers 21:05:00 00:11:00 Yvonne POPE [id number] i [id number] [id number] [place] [id number] Branch 2021-04-19 2021-04-19 Outpatient R POLO, [facility] [id number] Univers 13:15:00 13:15:00 STACEY franco o f [facility] 2021-02-06 2021-02-06 Case Summer Belcher [id number] Univers 00:00:00 00:00:00 Management Jennifer Harrell [id number] ity [id number] [address] 2021-02-06 2021-02-06 Case Summer Belcher [id number] 00:00:00 00:00:00 Management Jennifer Harrell [id number] [place] [id number] 2020-12-12 2020-12-12 [facility] [id number] Univers 00:00:00 00:00:00 Outreach [place] PRIMARY [id number] i [id number] [id number] [place] dical [address] Branch 2020-12-12 2020-12-12 Patient [facility] [id number] 00:00:00 00:00:00 Outreach [place] [facility] [id number] Leon CARE 4.2.7.2.686 PAVILLION [phone] [id number] 2020-02-28 2020-02-28 Outpatient R NEENA, [facility] [id number] Univers 15:00:00 15:00:00 ITZEL franco [facility] 2019-12-18 2019-12-18 Outpatient R NORMA [facility] [id number] Univers 17:30:00 17:30:00 KRISSY franco [facility] 2019-11-18 2019-11-18 Outpatient R NEENA, [facility] [id number] Univers 14:30:00 14:30:00 ITZEL franco [facility] 2019-05-27 2019-05-27 [facility] [id number] Univers 14:41:30 15:54:53 Itzel Pope 350.1.13.10 it[place] of [place] [phone] [address] 2019-05-27 2019-05-27 Routine [facility] [id number] 14:41:30 15:54:53 Itzel Pope 350.1.13.10 Visit [place] 4.2.7.2.686 Professio [phone] [address] 2019-05-17 2019-05-17 [facility] 1.2.840.114 [id number] Univers 17:15:00 23:59:00 Encounter Itzel Pope 350.1.13.10 [place] [phone] [facility] [address] 2019-05-17 2019-05-17 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, 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 [facility] [id number] Univers 17:21:30 17:36:30 Visit Chasidy Bolaños 350.1.13.10 [place] [phone] [facility] [address] 2019-05-17 2019-05-17 Office Neena [facility] [id number] Univers 15:55:01 16:56:25 Visit Itzel Pope 350.1.13.10 i [place] [phone] [address] 2019-05-17 2019-05-17 [facility] [id number] 15:55:01 16:56:25 Visit Itzel Pope 350.1.13.10 [place] 4.2.7.2.686 Professio [phone] [address] 2019-05-17 2019-05-17 Orders Doctor OLVERA 1.2.840.114 [id number] Univers 00:00:00 00:00:00 Only Unassigned, ZACKERY 350.1.13.10 ity of [place] [facility] 4.2.7.2.686 Juan as [phone] [facility] [address] 2019-05-05 2019-05-05 Telephone [facility] 1.2.840.114 [id number] Univers 00:00:00 00:00:00 Itzel Pope 350.1.13.10 i [place] [phone] [address] 2019-05-04 2019-05-04 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, 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 [facility] 1.2.840.114 [id number] [facility] 15:07:01 15:22:01 Visit Miky Chasidy Pedro Pope 350.1.13.10 [place] [phone] [facility] [address] 2019-05-04 2019-05-04 Hospital Bolaños Chasidy [facility] 1.2.840.114 [id number] [facility] 12:48:00 14:57:00 Encounter Pedro Pope 350.1.13.10 [place] of [place] [phone] [facility] [address] 2019-05-04 2019-05-04 [facility] 1.2.840.114 [id number] Univers 00:00:00 00:00:00 Itzel Pope 350.1.13.10 i [place] [phone] [address] 2019-05-04 2019-05-04 Orders Doctor OLVERA 1.2.840.114 [id number] Univers 00:00:00 00:00:00 Only Unassigned, ZACKERY 350.1.13.10 ity of [place] [facility] 4.2.7.2.686 Juan as [phone] [facility] [address] 2019-04-30 2019-04-30 Case Neena [facility] [id number] Univers 00:00:00 00:00:00 Management [facility] 350.1.13.10 ity of Surgical 4.2.7.2.686 Juan as Specialti [phone] Me dical es 370 [facility] 2019-04-29 2019-04-29 Routine Bolaños, Chasidy [facility] [id number] Univers 15:40:17 16:18:51 [place] 350.1.13.10 it[place] of [place] [phone] Il dical nal 134 [facility] Results Test Description Test Time Test Comments Results Result Comments Source POCT URINALYSIS W/O SPECIFIC GRAVITY 2023-02-11 18:03:00 Test Item Value Reference Range Interpretation Comme nts POCT PH U (test code = 3254) 8 mg/dl 5-8 POCT U LEUK EST (test code = 3263) Trace Negative - Negative POCT U NIT (test code = 3262) Neg Negative - Negative POCT U PROT (test code = 3259) Trace Negative - Negative POCT U GLU (test code = 3256) Neg Negative - Negative POCT U KETONE (test code = 3258) 2+ Negative - Negative POCT U BLD (test code = 3257) Trace Negative - Negative [facility] [id number] 18:02:00 Test Item Value Reference Range Interpretation Comments POCT PREG (test code = 1605) Positive On board controls acceptable with C Yes Line (test code = 3574) POCT PREG LOT # (test code = 3575) POCT PREG TEST DATE (test code = 3576) [facility]. METABOLIC PANEL (06050)2022-01-17 03:31:19 Test Item Value Reference Range Interpretation Comments NA (test code = 139 mmol/L 135-145 6873866005) K (test code = 4.2 mmol/L 3.5-5.0 4860200193) CL (test code = 105 mmol/L 98-108 0364100587) CO2 TOTAL (test code = 23 mmol/L 23-31 3260504095) AGAP (test code = 2-16 1561790127) BUN (test code = 9 mg/dL 7-23 7173947880) GLUCOSE (test code = 94 mg/dL 70-110 3584617240) CREATININE (test code = 0.61 mg/dL 0.50-1.04 1861625733) TOTAL BILI (test code = 0.9 mg/dL 0.1-1.9 6648646375) CALCIUM (test code = 9.4 mg/dL 8.6-10.6 7697723215) T PROTEIN (test code = 8.3 g/dL 6.3-8.2 H 8324481139) ALBUMIN (test code = 4.7 g/dL 3.5-5.0 7395151464) ALK PHOS (test code = 87 U/L 34-122 8193814204) ALTv (test code = 11 U/L 5-35 1742-6) AST(SGOT) (test code = 19 U/L 13-40 3392298842) eGFR (test code = mL/min/1.73m2 4462914009) TIERRA (test code = TIERRA) Association of Glomerular Filtration Rate (GFR) and Staging of Kidney Disease* + --+ --+ ------+| GFR (mL/min/1.73 m2) ?| With Kidney Damage ?| ?Without Kidney Damage+ --------+ --------+ +| ?>90 ?| ?Stage one ?| ? Normal ?+ ---+ ---+ -------+| ?60-89 ?| ?Stage two ?| ? Decreased GFR ? + --+ --+ ------+| ?30-59 ?| ?Stage three ?| ? Stage three ? + --+ --+ ------+| ?15-29 ?| ?Stage four ? | ? Stage four ?+ ---+ ---+ -------+| ?<15 (or dialysis) ? ?| ?Stage five ? | ? Stage five ?+ ---+ ---+ -------+ *Each stage assumes the associated GFR [...] or abnormalities in imaging tests). Lab Interpretation Abnormal (test code = 32676-5) [facility] 03:31:19 Test Item Value Reference Range Interpretation Comments LIPASE (test code = 1499516028) 68 U/L 0-220 Lab Interpretation (test code = Normal 43281-4) [facility] [id number] 03:28:58 Test Item Value Reference Range Interpretation Comments WBC (test code = See_Comment [Automated 1390-2) message] The sy stem which generated this result transmitted reference range : 4.30 - 11.10 10*3/?L. The reference range was not used to interpret this result as normal/abnormal . RBC (test code = See_Comment [Automated 049-8) message] The sy stem which generated this [...] RDW-SD (test code = 43.8 fL 39.0-49.9 24971-8) RDW-CV (test code = 15.2 % 12.0-15.5 788-0) PLT (test code = See_Comment [Automated 167-3) message] The sy stem which generated this result transmitted reference range : 166 - 358 10*3/ ?L. The reference r suzi was not used to interpret this result as normal/abnormal . MPV (test code = 11.3 fL 9.5-12.9 27729-3) NRBC/100 WBC (test See_Comment [Automat ed code = 5463864656) message] The system which generated this result transmitted reference range : 0.0 - 10.0 /100 WBCs. The refer ence range was not u sed to interpret th is result as normal/abnormal . NRBC x10^3 (test code <0.01 See_Comment [Auto mated = 0024956845) message] The s ystem which generated this result transmitted reference range : 10*3/?L. The reference range was not used to interpret this result as normal/abnormal . GRAN MAT (NEUT) % 71.7 % (test code = 770-8) IMM GRAN % (test code 0.20 % = 8218847026) LYMPH % (test code = 22.5 % 736-9) MONO % (test code = 4.2 % 5905-5) EOS % (test code = 0.8 % 713-8) BASO % (test code = 0.6 % 706-2) GRAN MAT x10^3(ANC) 6.26 10*3/uL 1.88-7.09 (test code = 3993093835) IMM GRAN x10^3 (test <0.03 0.00-0.06 code = 5278686248) LYMPH x10^3 (test code 1.96 10*3/uL 1.32-3.29 = 731-0) MONO x10^3 (test code 0.37 10*3/uL 0.33-0.92 = 742-7) EOS x10^3 (test code = 0.07 10*3/uL 0.03-0.39 711-2) BASO x10^3 (test code 0.05 10*3/uL 0.01-0.07 = 704-7) Lab Interpretation Abnormal (test code = 80540-9) [facility] [id number] 02:14:00 Test Item Value Reference Range Interpretation Comments POCT PREG (test code = 1605) negative On board controls acceptable with present C Line (test code = 3574) POCT PREG LOT # (test code = 3575) [id number] POCT PREG TEST DATE (test 06/21/2023 code = 3576) Lab Interpretation (test code = Normal 47345-9) [facility] [id number] 23:14:22 Cholelithiasis with no evidence of acute cholecystitis. Mild hepatomegaly. Sarita Diaz MD., have reviewed this study and agree [...] Cholelithiasis with no evidence of acute cholecystitis.Mild hepatomegaly.Sarita Diaz MD., have reviewed this study and agree with theabove report.[facility]2019-08-13 19:31:00 Test Item Value Reference Range Interpretation Comments APPEARANCE (test code Slightly Cloudy Clear A = 7282144802) COLOR (test code = Yellow Yellow 6226669472) PH (test code = 4.8-8.0 9304246260) SP GRAVITY (test code <=1.005 1.003-1.030 = 8673091813) GLU U QUAL (test code Negative Negative = 4263911329) BLOOD (test code = Negative Negative 0508659241) KETONES (test code = Negative Negative 5888252373) PROTEIN (test code = Negative Negative 2887-8) UROBILIN (test code = 0.2 mg/dL See_Comment [Auto mated 2907035873) message] The system which generated this result transmit refugio reference range : 0-1.0 mg/dL. Th e reference range was not used to interpret this result as normal/abnormal . BILIRUBIN (test code Negative Negative = 4617436262) NITRITE (test code = Negative Negative 6837501051) LEUK SUMMER (test code Large Negative A = 5170138606) RBC/HPF (test code = See_Comment [Autom ated 1885998090) message] The system which generated this result transmit refugio reference range : 0 - 3 HPF. The reference range was not used to interpret this result as normal/abnormal . WBC/HPF (test code = See_Comment H [Autom ated 5599955463) message] The system which generated this result transmit refugio reference range : 0 - 5 HPF. The reference range was not used to interpret this result as normal/abnormal . BACTERIA (test code = Moderate Negative A 0166425651) SQ EPITH (test code = HPF 9290621217) Lab Interpretation Abnormal (test code = 87219-8) [facility] ONLY - WET [id number] 19:28:00 Test Item Value Reference Range Interpretation Comments Wet Prep (test code No Trichomonas vaginalis = 7436161431) present [facility] ONLY - FERN [id number] 19:24:00 Test Item Value Reference Range Interpretation Comments Fern Test (test code = 9230806162) Negative [facility]"
[2023-02-12 12:14] LABS: Absolute Lymphocytes (CBC) 1.7 K/uL (0.7-4.9); Hematocrit 36.6 % (36.0-45.0); Lymphocytes % 23.2 % (15.3-44.8); MPV 9.9 fL (7.6-11.3); RBC Red Blood Cell Count 4.63 M/uL (3.86-4.86)
[2023-02-12 12:29] LABS: Potassium 3.6 mEq/L (3.5-5.1)
[2023-02-12] MEDS ORDERED: NA CHLORIDE 0.9% 1,000 ML ONE (13:07)
[2023-02-12] MEDS ORDERED: ACETAMINOPHEN 500 MG TAB ONE (13:41)
--- NOTE | 2023-02-12 13:44 | ER ---
Nurse's Notes [facility] Name: Arina Valdes Age: 22 yrs Sex: Female : 2000 Arrival Date: 02/12/2023 Time: 11:36 Bed 11 Private MD: Diagnosis: Nausea with vomiting, unspecified; state, incidental Presentation: 02/12 11:43 Chief complaint: Chief complaint: Patient states: vomiting X 2 days, 7 weeks five days iw . 11:44 Coronavirus screen: Client presents with at least one sign or symptom that may indicate coronavirus-19. Ebola Screen: Patient negative for fever greater than or equal to 101.5 degrees Fahrenheit, and additional compatible Ebola Virus Disease symptoms Patient denies exposure to infectious person. Patient denies travel to an Ebola-affected area in the 21 days before illness onset. No symptoms or risks identified at this time. Initial Sepsis Screen: Does the patient meet any 2 criteria? No. Patient's initial sepsis screen is negative. Does the patient have a suspected source of infection? No. Patient's initial sepsis screen is negative. Risk Assessment: Do you want to hurt yourself or someone else? Patient reports no desire to harm self or others. Onset of symptoms was February 10, 2023. 11:44 Method Of Arrival: Ambulatory iw 11:44 Acuity: PEYTON 3 iw Triage Assessment: 12:08 General: Behavior is cooperative. 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 - Social history:: Smoking status: Smoking status: Patient denies any tobacco usage or history of. Screenin:08 [facility] ED Fall Risk Assessment (Adult) History of falling in the last 3 months, mb9 including since admission No falls in past 3 months (0 pts) Confusion or Disorientation No (0 pts) Intoxicated or Sedated No (0 pts) Impaired Gait No (0 pts) Mobility Assist Device Used No (0 pt) Altered Elimination No (0 pt) Score/Fall Risk Level 0 - 2 = Low Risk Oriented to surroundings, Maintained a safe environment, Educated pt \\T\\ family on fall prevention, incl call for assistance when getting out of bed. Abuse screen: Denies threats or abuse. Nutritional screening: No deficits noted. Tuberculosis screening: No symptoms or risk factors identified. Assessment: 12:06 General: Appears in no apparent distress. Pain: Denies pain. Neuro: Level of mb9 Consciousness is awake, alert, obeys commands, Oriented to person, place, time, situation, Appropriate for age. Cardiovascular: Patient's skin is warm and dry. Rhythm is regular. Respiratory: Airway is patent Respiratory effort is even, unlabored, Respiratory pattern is regular, symmetrical. GI: Abdomen is flat, non-distended, Bowel sounds present X 4 quads. Abd is soft and non tender X 4 quads. Reports nausea, vomiting. : Denies vaginal bleeding. EENT: Oral mucosa is dry. Derm: Skin is pink, warm \\T\\ dry. Musculoskeletal: Range of motion: intact in all extremities. 13:20 Reassessment: No changes from previously documented assessment. Patient and/or family mb9 updated on plan of care and expected duration. Pain level reassessed. Patient is alert, oriented x 3, equal unlabored respirations, skin warm/dry/pink. 13:34 Reassessment: pt states "I have a really bad headache and want something for it. Its mb9 8/10 and throbbing all over. ERP notified. New orders at this time. Vital Signs: 11:43 BP 114 / 65; Pulse 74; Resp 18; Temp 99.2(O); Pulse Ox 100% on R/A; Weight 88.45 kg; iw Height 5 ft. 5 in. ; 12:06 BP 110 / 65; Pulse 63; Resp 16; Pulse Ox 100% on R/A; mb9 13:21 BP 110 / 69; Pulse 66; Resp 17; Pulse Ox 99% on R/A; mb9 11:43 Body Mass Index 32.45 (88.45 kg, 165.1 cm) iw ED Course: 11:39 Patient arrived in ED. iw 11:39 Mike Melendez MD is Attending Physician. rt 11:39 Molly Kevin FNP-C is PHCP. snw 11:44 Triage completed. iw 11:54 Citlali Brandt, CARLOS is Primary Nurse. mb9 12:05 Basic Metabolic Panel Sent. mb9 12:05 CBC with Diff Sent. mb9 12:05 Inserted saline lock: 22 gauge in right antecubital area, using aseptic technique. mb9 12:05 Arm band placed on. mb9 12:07 Placed in gown. Bed in low position. Call light in reach. Side rails up X 1. Client mb9 placed on continuous cardiac and pulse oximetry monitoring. NIBP monitoring applied. 12:08 No provider procedures requiring assistance completed. mb9 13:52 IV discontinued, intact, bleeding controlled, No redness/swelling at site. Pressure mb9 dressing applied. Administered Medications: 12:05 Drug: NS 0.9% IV 1000 ml Route: IV; Rate: 1 bolus; Site: right antecubital; mb9 12:59 Follow up: Response: No adverse reaction; IV Status: Completed infusion mb9 13:01 Drug: NS 0.9% IV 1000 ml Route: IV; Rate: 1 bolus; Site: right antecubital; mb9 13:36 Drug: Acetaminophen PO 1000 mg Route: PO; mb9 Medication: 12:07 VIS not applicable for this client. mb9 Outcome: 13:44 Discharge ordered by . snw 13:53 Discharged to home ambulatory. mb9 13:53 Condition: stable 13:53 Discharge instructions given to patient, Instructed on discharge instructions, follow up and referral plans. Demonstrated understanding of instructions, follow-up care. 13:59 Patient left the ED. mb9 Signatures: Molly Kevin, TRAVEL PROFESSIONAL-C TRAVEL PROFESSIONAL-Csnw Olga Sinclair RN RN iw Breneman, Mary Beth RN CARLOS mb9 Mike Melendez MD MD rt Corrections: (The following items were deleted from the chart) 11:44 11:43 Chief complaint: iw iw 11:45 11:43 Pulse 74bpm; Resp 18bpm; Pulse Ox 100% RA; Temp 99.2F Oral; iw iw
--- NOTE | 2023-02-12 13:45 | EDPHYS ---
Physician Documentation [facility] Name: Arina Valdes Age: 22 yrs Sex: Female : 2000 Arrival Date: 02/12/2023 Time: 11:36 Bed 11 Private MD: ED Physician Mike Melendez HPI: 02/12 11:49 This 22 yrs old Female presents to ER via Ambulatory with complaints of snw Nausea/Vomiting. 11:49 The patient presents to the emergency department with nausea, vomiting. Onset: The snw symptoms/episode began/occurred suddenly, 2 day(s) ago, and became persistent. Possible causes: . Associated signs and symptoms: Pertinent positives: nausea, vomiting. Severity of symptoms: At their worst the symptoms were moderate. The patient has not experienced similar symptoms in the past. The patient has been recently seen by a physician: an sports writer specialist, yesterday. 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 - Social history:: Smoking status: Smoking status: Patient denies any tobacco usage or history of. ROS: 11:48 Constitutional: Negative for fever, chills, and weight loss, Eyes: Negative for injury, snw pain, redness, and discharge, ENT: Negative for injury, pain, and discharge, Neck: Negative for injury, pain, and swelling, Cardiovascular: Negative for chest pain, palpitations, and edema, Respiratory: Negative for shortness of breath, cough, wheezing, and pleuritic chest pain, Back: Negative for injury and pain, : Negative for injury, bleeding, discharge, and swelling, MS/Extremity: Negative for injury and deformity, Skin: Negative for injury, rash, and discoloration, Neuro: Negative for headache, weakness, numbness, tingling, and seizure, Psych: Negative for depression, anxiety, suicide ideation, homicidal ideation, and hallucinations. 11:48 Abdomen/GI: Positive for nausea and vomiting, abdominal cramps, of the right upper quadrant and left upper quadrant. Exam: 11:48 Constitutional: This is a well developed, well nourished patient who is awake, alert, snw and in no acute distress. Head/Face: Normocephalic, atraumatic. Eyes: Pupils equal round and reactive to light, extra-ocular motions intact. Lids and lashes normal. Conjunctiva and sclera are non-icteric and not injected. Cornea within normal limits. Periorbital areas with no swelling, redness, or edema. ENT: Nares patent. No nasal discharge, no septal abnormalities noted. Tympanic membranes are normal and external auditory canals are clear. Oropharynx with no redness, swelling, or masses, exudates, or evidence of obstruction, uvula midline. Mucous membranes moist. Neck: Trachea midline, no thyromegaly or masses palpated, and no cervical lymphadenopathy. Supple, full range of motion without nuchal rigidity, or vertebral point tenderness. No Meningismus. Chest/axilla: Normal chest wall appearance and motion. Nontender with no deformity. No lesions are appreciated. Cardiovascular: Regular rate and rhythm with a normal S1 and S2. No gallops, murmurs, or rubs. Normal PMI, no JVD. No pulse deficits. Respiratory: Lungs have equal breath sounds bilaterally, clear to auscultation and percussion. No rales, rhonchi or wheezes noted. No increased work of breathing, no retractions or nasal flaring. Back: No spinal tenderness. No costovertebral tenderness. Full range of motion. Skin: Warm, dry with normal turgor. Normal color with no rashes, no lesions, and no evidence of cellulitis. MS/ Extremity: Pulses equal, no cyanosis. Neurovascular intact. Full, normal range of motion. Neuro: Awake and alert, GCS 15, oriented to person, place, time, and situation. Cranial nerves II-XII grossly intact. Motor strength 5/5 in all extremities. Sensory grossly intact. Cerebellar exam normal. Normal gait. Psych: Awake, alert, with orientation to person, place and time. Behavior, mood, and affect are within normal limits. 11:48 Abdomen/GI: Inspection: abdomen appears normal, Bowel sounds: normal, Palpation: abdomen is soft and non-tender, in all quadrants. Vital Signs: 11:43 BP 114 / 65; Pulse 74; Resp 18; Temp 99.2(O); Pulse Ox 100% on R/A; Weight 88.45 kg; iw Height 5 ft. 5 in. ; 12:06 BP 110 / 65; Pulse 63; Resp 16; Pulse Ox 100% on R/A; mb9 13:21 BP 110 / 69; Pulse 66; Resp 17; Pulse Ox 99% on R/A; mb9 11:43 Body Mass Index 32.45 (88.45 kg, 165.1 cm) iw MDM: 11:47 Patient medically screened. snw 12:49 Differential diagnosis: gastritis, viral gastroenteritis, hyperemesis. Data reviewed: snw vital signs, nurses notes. Historians other than the Patient: Spouse/Significant Other: Spouse. Counseling: I had a detailed discussion with the patient and/or guardian regarding: the historical points, exam findings, and any diagnostic results supporting the discharge/admit diagnosis, lab results, the need for outpatient follow up, for definitive care, to return to the emergency department if symptoms worsen or persist or if there are any questions or concerns that arise at home. Response to treatment: the patient's symptoms have markedly improved after treatment. ED course: holding down ice, given crackers and jello. If pt holds those down, will discharge home. 05 11:47 Order name: Basic Metabolic Panel; Complete Time: 12:31 snw 02/12 11:47 Order name: CBC with Diff; Complete Time: 12:16 snw 02/12 11:47 Order name: Labs collected and sent; Complete Time: 12:05 snw 02/12 12:45 Order name: PO challenge; Complete Time: 12:57 snw Administered Medications: 12:05 Drug: NS 0.9% IV 1000 ml Route: IV; Rate: 1 bolus; Site: right antecubital; mb9 12:59 Follow up: Response: No adverse reaction; IV Status: Completed infusion mb9 13:01 Drug: NS 0.9% IV 1000 ml Route: IV; Rate: 1 bolus; Site: right antecubital; mb9 13:36 Drug: Acetaminophen PO 1000 mg Route: PO; mb9 Disposition: 20:11 Co-signature as Attending Physician, Mike Melendez MD I reviewed the patient's care rt provided by the Advanced Practice Provider and agree with the diagnosis and treatment plan. Disposition Summary: 02/12/23 13:44 Discharge Ordered Location: Home snw Condition: Stable snw Diagnosis - Nausea with vomiting, unspecified snw - state, incidental snw Followup: snw - With: Emergency Department - When: As needed - Reason: Worsening of condition Followup: snw - With: Private Physician - When: 2 - 3 days - Reason: Recheck today's complaints, Continuance of care, Re-evaluation by your physician Discharge Instructions: - Discharge Summary Sheet snw - Nausea and Vomiting, Adult snw - and Anemia snw - and the Partner's Role snw - First Trimester of snw Forms: - Medication Reconciliation Form snw - Thank You Letter snw - Antibiotic Education snw - Prescription Opioid Use snw - Work release form mb9 Signatures: Dispatcher [employer] EDMS Molly Kevin, COMMUNICATION CONSULTANT-C COMMUNICATION CONSULTANT-Csnw Olga Sinclair, Citlali Encarnacion RN RN RN mb9 Mike Melendez MD MD rt
[2023-02-12 14:08] VITALS: TEMP 99.2
[2023-02-12 14:12] VITALS: BP 110/69; O2SAT 99
== END 2023-02-12 13:59 | disposition home or self-care (01) ==
LOC: ER 11:36
DX: R11.2 Nausea with vomiting, unspecified (principal); Z33.1 Pregnant state, incidental
CPT/HCPCS: 36415; 80048; 85025; J7030

== ENCOUNTER 2023-02-24 10:20 | Emergency (ER) | payer SELFPAY ==
--- OUTSIDE RECORDS SUMMARY | 2023-02-24 10:58 | XMS REPORT | Continuity of Care Document ---
:2000 Author Organization [facility] t Address [address] [place] [address] Care Team Providers Name Role Phone Stacey Prakash Primary Care Physician [phone] KRYSTAL VELASCO Attending Clinician Unavailable STACEY CUELLAR Attending Clinician Unavailable Krystal Velasco CNM Attending Clinician Doctor Unassigned, [place] Attending Clinician Unavailable LEEROY DENG Attending Clinician Unavailable YVONNE SIDDIQI Attending Clinician Unavailable Yvonne Rodriguez Attending Clinician Jennifer Belcher LMSW Attending Clinician Unavailable Broderick Melton DO Attending Clinician ITZEL CHAUDHARY Attending Clinician Unavailable KRISSY GREEN Attending Clinician Unavailable Itzel Chaudhary PA-C Attending Clinician 1, [facility] Attending Clinician Unavailable Chasidy Bolaños MD Attending Clinician Chasidy Bolaños MD Admitting Clinician Payers Payer Name Policy Type Policy Number Effective Date Expiration Date Leno trammell MEDICAID PENDING PENDING 2023 00:00:00 [facility] [place]RYSTIN [id number] 2018 00:00:00 Problems Condition Condition Condition Status Onset Resolution Last Treating Co mments Source Name Details Category Date Date Treatment Clinician Date Trichomona Trichomona Disease Active U nivers l l 5-26 it[place] 00 [place] Bran ch Maternal Maternal Disease Active Unive rs varicella, varicella, 5-24 it y of non-immune non-immune 00:00: [place] [facility] [place] Obesity Obesity Disease Active Univers affecting affecting 5-23 [place] Nausea and Nausea and Disease Active U nivers vomiting vomiting 5-23 ity of during during 00:00: [place] 00 [facility] Branch History of History of Disease Active Overview : Univers heart heart 5-23 Formattin ity of murmur in murmur in 00:00: [place] childhood childhood 00 note [facility] might be Branch different from the original. Age 12 Family Family Disease Active Overview: Univer s history of history of 5-23 Formattin ity of autism autism 00:00: g of this [place] 00 note Medical might be Branch different from the original. Patient sister and daughter Nexplanon Nexplanon Disease Active 2018-09 Uni vers insertion insertion 2-16 ity of 00:00: [place] [facility] Nexplanon Nexplanon Disease Active 2018-[address] in place 2-16 ity of 00:00: [place] [facility] Encounter Encounter Disease Active 2018-09 Uni vers for female for female 2-16 it y of 00:00: [place] control control 00 Medical Branch Anemia, Anemia, Disease Active 2018-09 Univers antepartum antepartum 1-12 it y of , third , third 00:00: [place] trimester trimester 00 [facility] Obesity Obesity Disease Active Univers (BMI (BMI 4-15 ity of 30-39.9) 30-39.9) 00:00: [place] 00 Medical Branch History of History of Disease Active U nivers depression depression 4-15 it y of 00:00: [place] [facility] History of History of Disease Active U nivers anxiety anxiety 4-15 ity of and and 00:00: [place] depression depression 00 Ut dical Branch Allergies, Adverse Reactions, Alerts Allergy Allergy Status Severity Reaction(s) Onset Inactive Treating Comm ents Source Name Type Date Date Clinician NO KNOWN Drug Active Univers ALLERGIE Class ity of S [facility] Social History Social Habit Start Date Stop Date Quantity Comments Source ASSERTION 2023-01-10 University of 00:00:00 [facility] History of Passive smoker University of tobacco use [facility] Alcohol intake 2023-02-11 2023-02-11 Current [facility] 00:00:00 00:00:00 non-drinker of [facility] alcohol (finding) Branch Tobacco Comment 2023-02-11 2023-02-11 fiance smokes Univer sity of 00:00:00 00:00:00 outside [facility] Tobacco use and 2023-02-11 2023-02-11 Smokeless tobacco Un iversity of exposure 00:00:00 00:00:00 non-user [facility] Exposure to 2022-01-06 2022-01-16 Unable to assess Univers ity of SARS-CoV-2 00:00:00 20:33:00 [facility] (event) Denio Sex Assigned At [birth year] Universit y of 00:00:00 00:00:00 [facility] Smoking Status Start Date Stop Date Source Never smoked tobacco [facility] Medications Ordered Filled Start Stop Current Ordering Indication Dosage Frequency Signature Comments Components Source Medication Medication Date Date Medication? Clinician (SIG) Name Name proMETHazin Yes [id number] 25mg Take 1 Univers e 25 mg 5-30 tablet by ity of tablet 00:00: mouth [place] 00 every 4 Medical (four) Branch hours as needed for Nausea and Vomiting (N/V). metroNIDAZO 2022- Yes [id number] 2000mg Take 4 Univers LE 500 mg 5-26 05-27 tablets by ity of tablet 00:00: 04:59 [place] :[place] now for 1 Medical dose. Branch metroNIDAZO 2022- Yes [id number] 2000mg Take 4 Univers LE 500 mg 5-26 05-27 tablets by ity of tablet 00:00: 04:59 [place] :[place] now for 1 Medical dose. Branch ondansetron 0 2021- No 4mg 4 mg, Slow Univers (ZOFRAN 01-17 IV Push, ity of (PF)) 04:00: 03:11 ONCE, 1 [place] injection 4 00 :00 dose, On Medi moiz mg Wed Branch 01/16/22 at 2300, ABHAY NaCl 0.9% 2021- No 1000mL at 999 Uni vers (NS) bolus 01-17 mL/hr, ity of infusion 04:00: 03:52 1,000 mL, [place] as 1,000 mL 00 :00 IV Medical Infusion, Branch ONCE, 1 dose, On 01/16/22 at 2300, ABHAY ondansetron 2021-0 Yes [id number] 4mg Take 1 Univers 4 mg 4-27 tablet by ity of disintegrat 00:00: mouth [place] ing tablet 00 every 8 Medica l (eight) Branch hours as needed for Nausea and Vomiting (N/V). ondansetron 2021-0 Yes [id number] 4mg Take 1 Univers 4 mg 4-27 tablet by ity of disintegrat 00:00: mouth [place] ing tablet 00 every 8 Medica l (eight) Branch hours as needed for Nausea and Vomiting (N/V). ondansetron 2021-0 Yes [id number] 4mg Take 1 Univers 4 mg 4-27 tablet by ity of disintegrat 00:00: mouth [place] ing tablet 00 every 8 Medica l (eight) Branch hours as needed for Nausea and Vomiting (N/V). ondansetron 2021-0 Yes [id number] 4mg Take 1 Univers 4 mg 4-27 tablet by ity of disintegrat 00:00: mouth [place] ing tablet 00 every 8 Medica l (eight) Branch hours as needed for Nausea and Vomiting (N/V). ondansetron 2021-0 Yes [id number] 4mg Take 1 Univers 4 mg 4-27 tablet by ity of disintegrat 00:00: mouth [place] ing tablet 00 every 8 Medica l (eight) Branch hours as needed for Nausea and Vomiting (N/V). ondansetron Yes [id number] 4mg Take 1 Univers 4 mg 4-27 tablet by ity of disintegrat 00:00: mouth [place] ing tablet 00 every 8 Medica l (eight) Branch hours as needed for Nausea and Vomiting (N/V). azithromyci Yes [id number] 250mg Take 1 Univers n 250 mg 3-28 tablet by ity of tablet 00:00: mouth [place] 00 daily. Medical Take 500 Branch mg day 1, then 250 mg days 2 to 5. azithromyci Yes [id number] 250mg Take 1 Univers n 250 mg 3-28 tablet by ity of tablet 00:00: mouth [place] 00 daily. Medical Take 500 Branch mg day 1, then 250 mg days 2 to 5. azithromyci Yes [id number] 250mg Take 1 Univers n 250 mg 3-28 tablet by ity of tablet 00:00: mouth [place] 00 daily. Medical Take 500 Branch mg day 1, then 250 mg days 2 to 5. azithromyci 2022- No [id number] 250mg Take 1 Univers n 250 mg 3-28 05-23 tablet by ity o f tablet 00:00: 00:00 mouth [place] 00 :00 daily. Medical Take 500 Branch mg day 1, then 250 mg days 2 to 5. Nitrofurant 2019- No [id number] 100mg Take 1 Univers oin&Nit. 8-04 05-21 capsule by ity of Macrocryst 00:00: 04:59 mouth 2 [place] 100 mg 00 :00 (two) Medical capsule times Branch daily for 7 days. metroNIDAZO Yes [id number] 500mg Take 1 Univers LE 500 mg 8-09 tablet by ity o f tablet 00:00: mouth [place] 00 every 12 Medical (twelve) Branch hours. metroNIDAZO Yes [id number] 500mg Take 1 Univers LE 500 mg 8-09 tablet by ity o f tablet 00:00: mouth [place] 00 every 12 Medical (twelve) Branch hours. metroNIDAZO Yes [id number] 500mg Take 1 Univers LE 500 mg 8-09 tablet by ity o f tablet 00:00: mouth [place] 00 every 12 Medical (twelve) Branch hours. metroNIDAZO 2019- No [id number] 500mg Take 1 Univers LE 500 mg 8-13 tablet by ity of tablet 00:00: 00:00 mouth [place] 00 :00 every 12 Medical (twelve) Branch hours. fluconazole Yes [id number] 200mg Take 1 Univers (DIFLUCAN) 8-08 tablet by ity of 200 mg 00:00: mouth [place] tablet [address] [facility] Branch fluconazole Yes [id number] 200mg Take 1 Univers (DIFLUCAN) 8-08 tablet by ity of 200 mg 00:00: mouth [place] tablet [address] [facility] Branch fluconazole Yes [id number] 200mg Take 1 Univers (DIFLUCAN) 8-08 tablet by ity of 200 mg 00:00: mouth [place] tablet [address] [facility] Branch fluconazole Yes [id number] 200mg Take 1 Univers (DIFLUCAN) 8-08 tablet by ity of 200 mg 00:00: mouth [place] tablet [address] [facility] Branch fluconazole 2019- No [id number] 200mg Take 1 Univers (DIFLUCAN) 8-08 08-13 tablet by ity of 200 mg 00:00: 00:00 mouth [place] tablet 00 :[address] [facility] Branch [id number], Yes [id number] Take 1 Univers carb,glu-FA 4-15 9106 TAB-CAP/M2 it y of -dss-dha 00:00: by mouth [place] (CITRANATAL 00 daily. Medica l DHA, ALGAL Branch OIL,) 27 mg iron-1 mg -50 mg-250 mg Cmpk [id number], Yes [id number] Take 1 Univers carb,glu-FA 4-15 9106 TAB-CAP/M2 it y of -dss-dha 00:00: by mouth [place] (CITRANATAL 00 daily. Medica l DHA, ALGAL Branch OIL,) 27 mg iron-1 mg -50 mg-250 mg Cmpk [id number], Yes [id number] Take 1 Univers carb,glu-FA 4-15 9106 TAB-CAP/M2 it y of -dss-dha 00:00: by mouth [place] (CITRANATAL 00 daily. Medica l DHA, ALGAL Branch OIL,) 27 mg iron-1 mg -50 mg-250 mg Cmpk [id number], 2019-0 Yes [id number] Take 1 Univers carb,glu-FA 4-15 9106 TAB-CAP/M2 it y of -dss-dha 00:00: by mouth [place] (CITRANATAL 00 daily. Medica l DHA, ALGAL Branch OIL,) 27 mg iron-1 mg -50 mg-250 mg Cmpk [id number], 2019-0 Yes [id number] Take 1 Univers carb,glu-FA 4-15 9106 TAB-CAP/M2 it y of -dss-dha 00:00: by mouth [place] (CITRANATAL 00 daily. Medica l DHA, ALGAL Branch OIL,) 27 mg iron-1 mg -50 mg-250 mg Cmpk [id number], 2018-0 Yes [id number] Take 1 Univers carb,glu-FA 4-15 9106 TAB-CAP/M2 it y of -dss-dha 00:00: by mouth [place] (CITRANATAL 00 daily. Medica l DHA, ALGAL Branch OIL,) 27 mg iron-1 mg -50 mg-250 mg Cmpk [id number], 2018-0 Yes [id number] Take 1 Univers carb,glu-FA 4-15 9106 TAB-CAP/M2 it y of -dss-dha 00:00: by mouth [place] (CITRANATAL 00 daily. Medica l DHA, ALGAL Branch OIL,) 27 mg iron-1 mg -50 mg-250 mg Cmpk [id number], 2019-0 Yes [id number] Take 1 Univers carb,glu-FA 4-15 9106 TAB-CAP/M2 it y of -dss-dha 00:00: by mouth [place] (CITRANATAL 00 daily. Medica l DHA, ALGAL Branch OIL,) 27 mg iron-1 mg -50 mg-250 mg Cmpk [id number], 2019-0 Yes [id number] Take 1 Univers carb,glu-FA 4-15 9106 TAB-CAP/M2 it y of -dss-dha 00:00: by mouth [place] (CITRANATAL 00 daily. Medica l DHA, ALGAL Branch OIL,) 27 mg iron-1 mg -50 mg-250 mg Cmpk [id number], 2019-0 Yes [id number] Take 1 Univers carb,glu-FA 4-15 9106 TAB-CAP/M2 it y of -dss-dha 00:00: by mouth [place] (CITRANATAL 00 daily. Medica l DHA, ALGAL Branch OIL,) 27 mg iron-1 mg -50 mg-250 mg Cmpk [id number], 2019-0 Yes [id number] Take 1 Univers carb,glu-FA 4-15 9106 TAB-CAP/M2 it y of -dss-dha 00:00: by mouth [place] (CITRANATAL 00 daily. Medica l DHA, ALGAL Branch OIL,) 27 mg iron-1 mg -50 mg-250 mg Cmpk [id number], 2019-0 Yes [id number] Take 1 Univers carb,glu-FA 4-15 9106 TAB-CAP/M2 it y of -dss-dha 00:00: by mouth [place] (CITRANATAL 00 daily. Medica l DHA, ALGAL Branch OIL,) 27 mg iron-1 mg -50 mg-250 mg Cmpk [id number], 2019-0 Yes [id number] Take 1 Univers carb,glu-FA 4-15 9106 TAB-CAP/M2 it y of -dss-dha 00:00: by mouth [place] (CITRANATAL 00 daily. Medica l DHA, ALGAL Branch OIL,) 27 mg iron-1 mg -50 mg-250 mg Cmpk Immunizations Ordered Immunization Filled Immunization Date Status Commen ts Source Name Name SARS-COV-2 COVID-19 2021-11-01 Completed Unive rsity of VACCINE - (MODERNA) 00:00:00 [facility] SARS-COV-2 COVID-19 2021-11-01 Completed Unive rsity of VACCINE - (MODERNA) 00:00:00 [facility] SARS-COV-2 COVID-19 2021-11-01 Completed Unive rsity of VACCINE - (MODERNA) 00:00:00 [facility] SARS-COV-2 COVID-19 2021-11-01 Completed Unive rsity of VACCINE - (MODERNA) 00:00:00 [facility] SARS-COV-2 COVID-19 2021-11-01 Completed Unive rsity of VACCINE - (MODERNA) 00:00:00 [facility] SARS-COV-2 COVID-19 2021-06-08 Completed Unive rsity of VACCINE - (MODERNA) 00:00:00 [facility] SARS-COV-2 COVID-19 2021-06-08 Completed Unive rsity of VACCINE - (MODERNA) 00:00:00 [facility] SARS-COV-2 COVID-19 2021-06-08 Completed Unive rsity of VACCINE - (MODERNA) 00:00:00 [facility] SARS-COV-2 COVID-19 2021-06-08 Completed Unive rsity of VACCINE - (MODERNA) 00:00:00 [facility] SARS-COV-2 COVID-19 2021-06-08 Completed Unive rsity of VACCINE - (MODERNA) 00:00:00 [facility] Influenza Virus 2019-06-29 Completed Universit y of Vaccine Quad .5 mL IM 00:00:00 [place] Medical 6+ MO Branch Influenza Virus 2019-06-29 Completed Universit y of Vaccine Quad .5 mL IM 00:00:00 [place] 6+ MO Branch Influenza Virus 2019-06-29 Completed Universit y of Vaccine Quad .5 mL IM 00:00:00 [place] Medical 6+ MO Branch Influenza Virus [...] VACCINE 2019-05-27 Completed Uni versity of 00:00:00 [facility] Branch TDAP (ADACEL) VACCINE 2019-05-27 Completed Uni versity of 00:00:00 [facility] Branch TDAP (ADACEL) VACCINE 2019-05-27 Completed Uni versity of 00:00:00 [facility] Branch TDAP (ADACEL) VACCINE 2019-05-27 Completed Uni [...] VACCINE 2019-04-01 Completed Uni versity of 00:00:00 [place] [facility] TDAP (ADACEL) VACCINE 2019-04-01 Completed [...] VACCINE 2019-04-01 Completed Uni versity of 00:00:00 [facility] Branch Influenza Virus 2019-01-04 Completed Universit y [...] Branch HPV 2015-04-13 Completed University of 00:00:00 [facility] Meningococcal 2015-04-13 Completed University of Polysaccharide 00:00:00 [place] Medi moiz (groups A, C, Y and Branc h W-135) conjugate vaccine (MCV4P) TDAP (ADACEL) VACCINE 2015-04-13 Completed Uni versity of 00:00:00 [facility] HPV 2015-04-13 Completed University of 00:00:00 [facility] Meningococcal 2015-04-13 Completed University of Polysaccharide 00:00:00 [place] Medi moiz (groups A, C, Y and Branc h W-135) conjugate vaccine (MCV4P) TDAP (ADACEL) VACCINE 2015-04-13 Completed Uni versity of 00:00:00 [facility] HPV 2015-04-13 Completed University of 00:00:00 [facility] Meningococcal 2015-04-13 Completed University of Polysaccharide 00:00:00 [place] Medi moiz (groups A, C, Y and Branc h W-135) conjugate vaccine (MCV4P) TDAP (ADACEL) VACCINE 2015-04-13 Completed Uni versity of 00:00:00 [facility] HPV 2015-04-13 Completed University of 00:00:00 [facility] Meningococcal 2015-04-13 Completed University of Polysaccharide 00:00:00 [place] Medi moiz (groups A, C, Y and Branc h W-135) conjugate vaccine (MCV4P) TDAP (ADACEL) VACCINE 2015-04-13 Completed Uni versity of 00:00:00 [facility] Branch HPV 2015-04-13 Completed University of 00:00:00 [facility] Meningococcal 2015-04-13 Completed University of Polysaccharide 00:00:00 [place] Medi moiz (groups A, C, Y and Branc h W-135) conjugate vaccine (MCV4P) TDAP (ADACEL) VACCINE 2015-04-13 Completed Uni versity of 00:00:00 [facility] HPV 2015-04-13 Completed University of 00:00:00 [facility] Meningococcal 2015-04-13 Completed University of Polysaccharide 00:00:00 [place] Medi moiz (groups A, C, Y and Branc h W-135) conjugate vaccine (MCV4P) TDAP (ADACEL) VACCINE 2015-04-13 Completed Uni versity of 00:00:00 [facility] HPV 2015-04-13 Completed University of 00:00:00 [facility] Meningococcal 2015-04-13 Completed University of Polysaccharide 00:00:00 [place] Medi moiz (groups A, C, Y and Branc h W-135) conjugate vaccine (MCV4P) TDAP (ADACEL) VACCINE 2015-04-13 Completed Uni versity of 00:00:00 [facility] HPV 2015-04-13 Completed University of 00:00:00 [facility] Meningococcal 2015-04-13 Completed University of Polysaccharide 00:00:00 [place] Medi moiz (groups A, C, Y and Branc h W-135) conjugate vaccine (MCV4P) TDAP (ADACEL) VACCINE 2015-04-13 Completed Uni versity of 00:00:00 [facility] HPV 2015-04-13 Completed University of 00:00:00 [facility] Meningococcal 2015-04-13 Completed University of Polysaccharide 00:00:00 [place] Medi moiz (groups A, C, Y and Branc h W-135) conjugate vaccine (MCV4P) TDAP (ADACEL) VACCINE 2015-04-13 Completed Uni versity of 00:00:00 [facility] HPV 2015-04-13 Completed University of 00:00:00 [facility] Meningococcal 2015-04-13 Completed University of Polysaccharide 00:00:00 [place] Medi moiz (groups A, C, Y and Branc h W-135) conjugate vaccine (MCV4P) TDAP (ADACEL) VACCINE 2015-04-13 Completed Uni versity of 00:00:00 [facility] Branch HPV 2015-04-13 Completed University of 00:00:00 [facility] Meningococcal 2015-04-13 Completed University of Polysaccharide 00:00:00 [place] Medi moiz (groups A, C, Y and Branc h W-135) conjugate vaccine (MCV4P) HPV 2015-04-13 Completed University of 00:00:00 [facility] Meningococcal 2015-04-13 Completed University of Polysaccharide 00:00:00 [place] Medi moiz (groups A, C, Y and Branc h W-135) conjugate vaccine (MCV4P) TDAP (ADACEL) VACCINE 2015-04-13 Completed Uni versity of 00:00:00 [facility] TDAP (ADACEL) VACCINE 2015-04-13 Completed Uni versity of 00:00:00 [facility] HPV 2015-04-13 Completed University of 00:00:00 [facility] Meningococcal 2015-04-13 Completed University of Polysaccharide 00:00:00 [place] Medi moiz (groups A, C, Y and Branc h W-135) conjugate vaccine (MCV4P) TDAP (ADACEL) VACCINE 2015-04-13 Completed Uni versity of 00:00:00 [facility] HPV 2015-04-13 Completed University of 00:00:00 [facility] Meningococcal 2015-04-13 Completed University of Polysaccharide 00:00:00 [place] Medi moiz (groups A, C, Y and Branc h W-135) conjugate vaccine (MCV4P) TDAP (ADACEL) VACCINE 2015-04-13 Completed Uni versity of 00:00:00 [facility] HPV 2015-04-13 Completed University of 00:00:00 [facility] Meningococcal 2015-04-13 Completed University of Polysaccharide 00:00:00 [place] Medi moiz (groups A, C, Y and Branc h W-135) conjugate vaccine (MCV4P) TDAP (ADACEL) VACCINE 2015-04-13 Completed Uni versity of 00:00:00 [facility] HPV 2015-04-13 Completed University of 00:00:00 [facility] Meningococcal 2015-04-13 Completed University of Polysaccharide 00:00:00 [place] Medi moiz (groups A, C, Y and Branc h W-135) conjugate vaccine (MCV4P) TDAP (ADACEL) VACCINE 2015-04-13 Completed Uni versity of 00:00:00 [facility] Branch HPV 2015-04-13 Completed University of 00:00:00 [facility] Meningococcal 2015-04-13 Completed University of Polysaccharide 00:00:00 [place] Medi moiz (groups A, C, Y and Branc h W-135) conjugate vaccine (MCV4P) TDAP (ADACEL) VACCINE 2015-04-13 Completed Uni versity of 00:00:00 [facility] HPV 2015-04-13 Completed University of 00:00:00 [facility] Meningococcal 2015-04-13 Completed University of Polysaccharide 00:00:00 [place] Medi moiz (groups A, C, Y and Branc h W-135) conjugate vaccine (MCV4P) TDAP (ADACEL) VACCINE 2015-04-13 Completed Uni versity of 00:00:00 [facility] HPV 2015-04-13 Completed University of 00:00:00 [facility] Meningococcal 2015-04-13 Completed University of Polysaccharide 00:00:00 [place] Medi moiz (groups A, C, Y and Branc h W-135) conjugate vaccine (MCV4P) TDAP (ADACEL) VACCINE 2015-04-13 Completed Uni versity of 00:00:00 [facility] HPV 2015-04-13 Completed University of 00:00:00 [facility] Meningococcal 2015-04-13 Completed University of Polysaccharide 00:00:00 [place] Medi moiz (groups A, C, Y and Branc h W-135) conjugate vaccine (MCV4P) TDAP (ADACEL) VACCINE 2015-04-13 Completed Uni versity of 00:00:00 [facility] HPV 2015-04-13 Completed University of 00:00:00 [facility] Meningococcal 2015-04-13 Completed University of Polysaccharide 00:00:00 [place] Medi moiz (groups A, C, Y and Branc h W-135) conjugate vaccine (MCV4P) TDAP (ADACEL) VACCINE 2015-04-13 Completed Uni versity of 00:00:00 [facility] HPV 2012-06-29 Completed University of 00:00:00 [facility] HPV 2012-06-29 Completed University of 00:00:00 [facility] HPV 2012-06-29 Completed University of 00:00:00 [facility] HPV 2012-06-29 Completed University of 00:00:00 [facility] HPV 2012-06-29 Completed University of 00:00:00 [facility] HPV 2012-06-29 Completed University of 00:00:00 [facility] HPV 2012-06-29 Completed University of 00:00:00 [facility] HPV 2012-06-29 Completed University of 00:00:00 [facility] Meningococcal 2009-12-12 Completed University of Polysaccharide 00:00:00 [place] Medi moiz (groups A, C, Y and Branc h W-135) conjugate vaccine (MCV4P) Varicella 2009-12-12 Completed University of (varivax)(chicken 00:00:00 [place] M edical pox) Branch Meningococcal 2009-12-12 Completed University of Polysaccharide 00:00:00 [place] Medi moiz (groups A, C, Y and Branc h W-135) conjugate vaccine (MCV4P) Varicella 2009-12-12 Completed University of (varivax)(chicken 00:00:00 [place] M edical pox) Branch Meningococcal 2009-12-12 Completed University of Polysaccharide 00:00:00 [place] Medi moiz (groups A, C, Y and Branc h W-135) conjugate vaccine (MCV4P) Varicella 2009-12-12 Completed University of (varivax)(chicken 00:00:00 [place] M edical pox) Branch Meningococcal 2009-12-12 Completed University of Polysaccharide 00:00:00 [place] Medi moiz (groups A, C, Y and Branc h W-135) conjugate vaccine (MCV4P) Varicella 2009-12-12 Completed University of (varivax)(chicken 00:00:00 [place] M edical pox) Branch HEPATITIS A 2009-12-12 Completed University of 00:00:00 [facility] Tetanus/Diptheria 2009-12-12 Completed Univers ity of 00:00:00 [facility] Meningococcal 2009-12-12 Completed University of Polysaccharide 00:00:00 [place] Medi moiz (groups A, C, Y and Branc h W-135) conjugate vaccine (MCV4P) Varicella 2009-12-12 Completed University of (varivax)(chicken 00:00:00 [place] M edical pox) Branch HEPATITIS A 2009-12-12 Completed University of 00:00:00 [facility] Tetanus/Diptheria 2009-12-12 Completed Univers ity of 00:00:00 [facility] Meningococcal 2009-12-12 Completed University of Polysaccharide 00:00:00 [facility] moiz (groups A, C, Y and Branc h W-135) conjugate vaccine (MCV4P) Varicella 2009-12-12 Completed University of (varivax)(chicken 00:00:00 [place] M edical pox) Branch HEPATITIS A 2009-12-12 Completed University of 00:00:00 [facility] Tetanus/Diptheria 2009-12-12 Completed [facility] 00:00:00 [facility] Meningococcal 2009-12-12 Completed University of Polysaccharide 00:00:00 [facility] moiz (groups A, C, Y and Branc h W-135) conjugate vaccine (MCV4P) Varicella 2009-12-12 Completed University of (varivax)(chicken 00:00:00 [place] [facility]ox) [facility] HEPATITIS A 2009-12-12 Completed [facility] of 00:00:00 [facility] Tetanus/Diptheria 2009-12-12 Completed [facility] 00:00:00 [facility] Meningococcal 2009-12-12 Completed [facility] of Polysaccharide 00:00:00 [facility] moiz (groups A, C, Y and Branc h W-135) conjugate vaccine (MCV4P) Varicella 2009-12-12 Completed [facility] (varivax)(chicken 00:00:00 [place] [facility] pox) [facility] HEPATITIS A 2009-12-12 Completed [facility] 00:00:00 [facility] Tetanus/Diptheria 2009-12-12 Completed [facility] 00:00:00 [facility] DTaP, Unspecified 2003-04-28 Completed [facility] of Formulation 00:00:00 [facility] MMR 2003-04-28 Completed [facility] of 00:00:00 [facility] IPV 2003-04-28 Completed [facility] of 00:00:00 [facility] DTaP, Unspecified 2003-04-28 Completed [facility] Formulation 00:00:00 [facility] MMR 2003-04-28 Completed [facility] of 00:00:00 [facility] IPV 2003-04-28 Completed [facility] of 00:00:00 [facility] DTaP, Unspecified 2003-04-28 Completed [facility] of Formulation 00:00:00 [facility] MMR 2003-04-28 Completed [facility] of 00:00:00 [facility] IPV 2003-04-28 Completed [facility] of 00:00:00 [facility] DTaP, Unspecified 2003-04-28 Completed [facility] of Formulation 00:00:00 [facility] MMR 2003-04-28 Completed [facility] 00:00:00 [facility] IPV 2003-04-28 Completed [facility] 00:00:00 [facility] DTaP, Unspecified 2003-04-28 Completed [facility] Formulation 00:00:00 [facility] MMR 2003-04-28 Completed [facility] of 00:00:00 [facility] IPV 2003-04-28 Completed [facility] of 00:00:00 [facility] HIB 4 Dose Schedule 2002-11-11 Completed Unive rsity of 00:00:00 [facility] Hep B, Adol or Pedi 2002-11-11 Completed Unive rsity of Dosage 00:00:00 [facility] MMR 2002-11-11 Completed [facility] of 00:00:00 [facility] Polio (IPV/OPV) 2002-11-11 Completed [facility] 00:00:00 [facility] Varicella 2002-11-11 Completed [facility] of (varivax)(chicken 00:00:00 [place] [facility] pox) [facility] DTAP 2002-11-11 Completed [facility] 00:00:00 [facility] Hep B, Adol or Pedi 2002-11-11 Completed Unive rsity of Dosage 00:00:00 [facility] HIB 4 Dose Schedule 2002-11-11 Completed Unive rsity of 00:00:00 [facility] Polio (IPV/OPV) 2002-11-11 Completed [facility] 00:00:00 [facility] MMR 2002-11-11 Completed [facility] 00:00:00 [facility] Varicella 2002-11-11 Completed [facility] of (varivax)(chicken 00:00:00 [place] [facility] pox) [facility] DTAP 2002-11-11 Completed [facility] 00:00:00 [facility] HIB 4 Dose Schedule 2002-11-11 Completed Unive rsity of 00:00:00 [facility] Hep B, Adol or Pedi 2002-11-11 Completed Unive rsity of Dosage 00:00:00 [facility] MMR 2002-11-11 Completed [facility] of 00:00:00 [facility] Polio (IPV/OPV) 2002-11-11 Completed [facility] 00:00:00 [facility] Varicella 2002-11-11 Completed [facility] of (varivax)(chicken 00:00:00 [place] [facility] pox) [facility] DTAP 2002-11-11 Completed [facility] 00:00:00 [facility] Hep B, Adol or Pedi 2002-11-11 Completed Unive rsity of Dosage 00:00:00 [facility] HIB 4 Dose Schedule 2002-11-11 Completed Unive rsity of 00:00:00 [facility] Polio (IPV/OPV) 2002-11-11 Completed [facility] 00:00:00 [facility] MMR 2002-11-11 Completed [facility] 00:00:00 [facility] Varicella 2002-11-11 Completed [facility] of (varivax)(chicken 00:00:00 [place] [facility] pox) [facility] DTAP 2002-11-11 Completed [facility] 00:00:00 [facility] HIB 4 Dose Schedule 2002-11-11 Completed Unive rsity of 00:00:00 [facility] Hep B, Adol or Pedi 2002-11-11 Completed Unive rsity of Dosage 00:00:00 [facility] MMR 2002-11-11 Completed [facility] of 00:00:00 [facility] Polio (IPV/OPV) 2002-11-11 Completed [facility] 00:00:00 [facility] Varicella 2002-11-11 Completed [facility] of (varivax)(chicken 00:00:00 [place] [facility] pox) [facility] DTAP 2002-11-11 Completed [facility] of 00:00:00 [facility] Hep B, Adol or Pedi 2002-11-11 Completed Unive rsity of Dosage 00:00:00 [facility] HIB 4 Dose Schedule 2002-11-11 Completed Unive rsity of 00:00:00 [facility] Polio (IPV/OPV) 2002-11-11 Completed [facility] 00:00:00 [facility] MMR 2002-11-11 Completed [facility] 00:00:00 [facility] Varicella 2002-11-11 Completed [facility] of (varivax)(chicken 00:00:00 [place] [facility] pox) [facility] DTAP 2002-11-11 Completed [facility] of 00:00:00 [facility] HIB 4 Dose Schedule 2002-11-11 Completed Unive rsity of 00:00:00 [facility] Hep B, Adol or Pedi 2002-11-11 Completed Unive rsity of Dosage 00:00:00 [facility] MMR 2002-11-11 Completed [facility] of 00:00:00 [facility] Polio (IPV/OPV) 2002-11-11 Completed [facility] 00:00:00 [facility] Varicella 2002-11-11 Completed [facility] of (varivax)(chicken 00:00:00 [place] [facility] pox) [facility] DTAP 2002-11-11 Completed [facility] of 00:00:00 [facility] Hep B, Adol or Pedi 2002-11-11 Completed Unive rsity of Dosage 00:00:00 [facility] HIB 4 Dose Schedule 2002-11-11 Completed Unive rsity of 00:00:00 [facility] Polio (IPV/OPV) 2002-11-11 Completed [facility] 00:00:00 [facility] MMR 2002-11-11 Completed [facility] 00:00:00 [facility] Varicella 2002-11-11 Completed [facility] of (varivax)(chicken 00:00:00 [place] [facility] pox) [facility] DTAP 2002-11-11 Completed [facility] of 00:00:00 [facility] HIB 4 Dose Schedule 2002-11-11 Completed Unive rsity of 00:00:00 [facility] Hep B, Adol or Pedi 2002-11-11 Completed Unive rsity of Dosage 00:00:00 [facility] MMR 2002-11-11 Completed [facility] of 00:00:00 [facility] Polio (IPV/OPV) 2002-11-11 Completed [facility] 00:00:00 [facility] Varicella 2002-11-11 Completed [facility] of (varivax)(chicken 00:00:00 [place] [facility]ox) [facility] DTAP 2002-11-11 Completed [facility] of 00:00:00 [facility] Hep B, Adol or Pedi 2002-11-11 Completed Unive rsity of Dosage 00:00:00 [facility] HIB 4 Dose Schedule 2002-11-11 Completed Unive rsity of 00:00:00 [facility] Polio (IPV/OPV) 2002-11-11 Completed [facility] 00:00:00 [facility] MMR 2002-11-11 Completed [facility] 00:00:00 [facility] Varicella 2002-11-11 Completed [facility] (varivax)(chicken 00:00:00 [place] [facility] pox) [facility] DTAP 2002-11-11 Completed [facility] of 00:00:00 [facility] HIB 4 Dose Schedule 2002-11-11 Completed Unive rsity of 00:00:00 [facility] Hep B, Adol or Pedi 2002-11-11 Completed Unive rsity of Dosage 00:00:00 [facility] MMR 2002-11-11 Completed [facility] of 00:00:00 [facility] Polio (IPV/OPV) 2002-11-11 Completed [facility] 00:00:00 [facility] Varicella 2002-11-11 Completed [facility] (varivax)(chicken 00:00:00 [place] [facility] pox) [facility] DTAP 2002-11-11 Completed [facility] of 00:00:00 [facility] Hep B, Adol or Pedi 2002-11-11 Completed Unive rsity of Dosage 00:00:00 [facility] HIB 4 Dose Schedule 2002-11-11 Completed Unive rsity of 00:00:00 [facility] Polio (IPV/OPV) 2002-11-11 Completed [facility] 00:00:00 [facility] MMR 2002-11-11 Completed [facility] of 00:00:00 [facility] Varicella 2002-11-11 Completed [facility] of (varivax)(chicken 00:00:00 [place] [facility] pox) [facility] DTAP 2002-11-11 Completed [facility] 00:00:00 [facility] DTAP 2002-11-11 Completed [facility] of 00:00:00 [facility] HIB 4 Dose Schedule 2002-11-11 Completed Unive rsity of 00:00:00 [facility] HIB 4 Dose Schedule 2002-11-11 Completed Unive rsity of 00:00:00 [facility] Hep B, Adol or Pedi 2002-11-11 Completed Unive rsity of Dosage 00:00:00 [facility] MMR 2002-11-11 Completed [facility] of 00:00:00 [facility] Polio (IPV/OPV) 2002-11-11 Completed [facility] 00:00:00 [facility] Varicella 2002-11-11 Completed [facility] of (varivax)(chicken 00:00:00 [place] [facility] pox) [facility] DTAP 2002-11-11 Completed [facility] of 00:00:00 [facility] Hep B, Adol or Pedi 2002-11-11 Completed Unive rsity of Dosage 00:00:00 [facility] HIB 4 Dose Schedule 2002-11-11 Completed Unive rsity of 00:00:00 [facility] Polio (IPV/OPV) 2002-11-11 Completed [facility] 00:00:00 [facility] MMR 2002-11-11 Completed [facility] 00:00:00 [facility] Hep B, Adol or Pedi 2002-11-11 Completed Unive rsity of Dosage 00:00:00 [facility] Varicella 2002-11-11 Completed [facility] of (varivax)(chicken 00:00:00 [place] [facility] pox) [facility] MMR 2002-11-11 Completed [facility] 00:00:00 [facility] DTAP 2002-11-11 Completed [facility] of 00:00:00 [facility] HIB 4 Dose Schedule 2002-11-11 Completed Unive rsity of 00:00:00 [facility] Hep B, Adol or Pedi 2002-11-11 Completed Unive rsity of Dosage 00:00:00 [facility] MMR 2002-11-11 Completed [facility] of 00:00:00 [facility] Polio (IPV/OPV) 2002-11-11 Completed [facility] 00:00:00 [facility] Varicella 2002-11-11 Completed [facility] of (varivax)(chicken 00:00:00 [place] [facility] pox[facility] Polio (IPV/OPV) 2002-11-11 Completed [facility] 00:00:00 [facility] DTAP 2002-11-11 Completed [facility] of 00:00:00 [facility] Hep B, Adol or Pedi 2002-11-11 Completed Unive rsity of Dosage 00:00:00 [facility] HIB 4 Dose Schedule 2002-11-11 Completed Unive rsity of 00:00:00 [facility] Polio (IPV/OPV) 2002-11-11 Completed [facility] 00:00:00 [facility] MMR 2002-11-11 Completed [facility] 00:00:00 [facility] Varicella 2002-11-11 Completed [facility] (varivax)(chicken 00:00:00 [place] [facility] pox) [facility] Varicella 2002-11-11 Completed [facility] of (varivax)(chicken 00:00:00 [place] [facility] pox) Branch DTAP 2002-11-11 Completed [facility] 00:00:00 [facility] DTAP 2002-11-11 Completed [facility] of 00:00:00 [facility] HIB 4 Dose Schedule 2002-11-11 Completed Unive rsity of 00:00:00 [facility] Hep B, Adol or Pedi 2002-11-11 Completed Unive rsity of Dosage 00:00:00 [facility] MMR 2002-11-11 Completed [facility] of 00:00:00 [facility] Polio (IPV/OPV) 2002-11-11 Completed [facility] 00:00:00 [facility] Varicella 2002-11-11 Completed [facility] of (varivax)(chicken 00:00:00 [place] [facility] pox) [facility] DTAP 2002-11-11 Completed [facility] of 00:00:00 [facility] Hep B, Adol or Pedi 2002-11-11 Completed Unive rsity of Dosage 00:00:00 [facility] HIB 4 Dose Schedule 2002-11-11 Completed Unive rsity of 00:00:00 [facility] Hep B, Adol or Pedi 2002-11-11 Completed Unive rsity of Dosage 00:00:00 [facility] Polio (IPV/OPV) 2002-11-11 Completed [facility] 00:00:00 [facility] MMR 2002-11-11 Completed [facility] 00:00:00 [facility] Varicella 2002-11-11 Completed [facility] of (varivax)(chicken 00:00:00 [place] [facility] pox) [facility] HIB 4 Dose Schedule 2002-11-11 Completed Unive rsity of 00:00:00 [facility] DTAP 2002-11-11 Completed [facility] of 00:00:00 [facility] HIB 4 Dose Schedule 2002-11-11 Completed Unive rsity of 00:00:00 [facility] Hep B, Adol or Pedi 2002-11-11 Completed Unive rsity of Dosage 00:00:00 [facility] MMR 2002-11-11 Completed [facility] of 00:00:00 [facility] Polio (IPV/OPV) 2002-11-11 Completed [facility] 00:00:00 [facility] Varicella 2002-11-11 Completed [facility] (varivax)(chicken 00:00:00 [place] [facility] pox) [facility] Polio (IPV/OPV) 2002-11-11 Completed [facility] 00:00:00 [facility] DTAP 2002-11-11 Completed [facility] 00:00:00 [facility] Hep B, Adol or Pedi 2002-11-11 Completed Unive rsity of Dosage 00:00:00 [facility] HIB 4 Dose Schedule 2002-11-11 Completed Unive rsity of 00:00:00 [facility] Polio (IPV/OPV) 2002-11-11 Completed [facility] 00:00:00 [facility] MMR 2002-11-11 Completed [facility] 00:00:00 [facility] Varicella 2002-11-11 Completed [facility] of (varivax)(chicken 00:00:00 [place] [facility] pox) [facility] MMR 2002-11-11 Completed [facility] 00:00:00 [facility] Varicella 2002-11-11 Completed [facility] (varivax)(chicken 00:00:00 [place] [facility] pox) [facility] DTAP 2002-11-11 Completed [facility] of 00:00:00 [facility] HIB 4 Dose Schedule 2002-11-11 Completed Unive rsity of 00:00:00 [facility] Hep B, Adol or Pedi 2002-11-11 Completed Unive rsity of Dosage 00:00:00 [facility] MMR 2002-11-11 Completed [facility] of 00:00:00 [facility] Polio (IPV/OPV) 2002-11-11 Completed [facility] 00:00:00 [facility] Varicella 2002-11-11 Completed [facility] (varivax)(chicken 00:00:00 [place] [facility] pox) [facility] DTAP 2002-11-11 Completed [facility] 00:00:00 [facility] Hep B, Adol or Pedi 2002-11-11 Completed Unive rsity of Dosage 00:00:00 [facility] HIB 4 Dose Schedule 2002-11-11 Completed Unive rsity of 00:00:00 [facility] Polio (IPV/OPV) 2002-11-11 Completed [facility] 00:00:00 [facility] MMR 2002-11-11 Completed [facility] 00:00:00 [facility] Varicella 2002-11-11 Completed [facility] (varivax)(chicken 00:00:00 [place] [facility] pox) Branch DTAP 2002-11-11 Completed [facility] 00:00:00 [facility] HIB 4 Dose Schedule 2002-11-11 Completed Unive rsity of 00:00:00 [facility] Hep B, Adol or Pedi 2002-11-11 Completed Unive rsity of Dosage 00:00:00 [facility] MMR 2002-11-11 Completed [facility] of 00:00:00 [facility] Polio (IPV/OPV) 2002-11-11 Completed [facility] 00:00:00 [facility] Varicella 2002-11-11 Completed [facility] (varivax)(chicken 00:00:00 [place] [facility] pox) [facility] DTAP 2002-11-11 Completed [facility] 00:00:00 [facility] Hep B, Adol or Pedi 2002-11-11 Completed Unive rsity of Dosage 00:00:00 [facility] HIB 4 Dose Schedule 2002-11-11 Completed Unive rsity of 00:00:00 [facility] Polio (IPV/OPV) 2002-11-11 Completed [facility] 00:00:00 [facility] MMR 2002-11-11 Completed [facility] 00:00:00 [facility] Varicella 2002-11-11 Completed [facility] of (varivax)(chicken 00:00:00 [place] [facility] pox) Branch DTAP 2002-11-11 Completed [facility] 00:00:00 [facility] HIB 4 Dose Schedule 2002-11-11 Completed Unive rsity of 00:00:00 [facility] Hep B, Adol or Pedi 2002-11-11 Completed Unive rsity of Dosage 00:00:00 [facility] MMR 2002-11-11 Completed [facility] of 00:00:00 [facility] Polio (IPV/OPV) 2002-11-11 Completed [facility] 00:00:00 [facility] Varicella 2002-11-11 Completed [facility] of (varivax)(chicken 00:00:00 [place] [facility] pox) Branch DTAP 2002-11-11 Completed [facility] 00:00:00 [facility] Hep B, Adol or Pedi 2002-11-11 Completed Unive rsity of Dosage 00:00:00 [facility] HIB 4 Dose Schedule 2002-11-11 Completed Unive rsity of 00:00:00 [facility] Polio (IPV/OPV) 2002-11-11 Completed [facility] 00:00:00 [facility] MMR 2002-11-11 Completed [facility] 00:00:00 [facility] Varicella 2002-11-11 Completed [facility] of (varivax)(chicken 00:00:00 [place] [facility] pox) [facility] DTaP, Unspecified 2002-11-11 Completed Univers ity of Formulation 00:00:00 [facility] IPV 2002-11-11 Completed [facility] of 00:00:00 [facility] DTAP 2002-11-11 Completed [facility] of 00:00:00 [facility] HIB 4 Dose Schedule 2002-11-11 Completed Unive rsity of 00:00:00 [facility] DTaP, Unspecified 2002-11-11 Completed Univers ity of Formulation 00:00:00 [facility] IPV 2002-11-11 Completed [facility] of 00:00:00 [facility] Hep B, Adol or Pedi 2002-11-11 Completed Unive rsity of Dosage 00:00:00 [facility] MMR 2002-11-11 Completed [facility] of 00:00:00 [facility] Polio (IPV/OPV) 2002-11-11 Completed [facility] 00:00:00 [facility] DTaP, Unspecified 2002-11-11 Completed Univers ity of Formulation 00:00:00 [facility] Varicella 2002-11-11 Completed [facility] of (varivax)(chicken 00:00:00 [facility] edical pox) Branch IPV 2002-11-11 Completed [facility] of 00:00:00 [facility] DTAP 2002-11-11 Completed [facility] of 00:00:00 [facility] Hep B, Adol or Pedi 2002-11-11 Completed Unive rsity of Dosage 00:00:00 [facility] DTaP, Unspecified 2002-11-11 Completed Univers ity of Formulation 00:00:00 [facility] HIB 4 Dose Schedule 2002-11-11 Completed Unive rsity of 00:00:00 [facility] IPV 2002-11-11 Completed [facility] 00:00:00 [facility] Polio (IPV/OPV) 2002-11-11 Completed [facility] 00:00:00 [facility] MMR 2002-11-11 Completed [facility] 00:00:00 [facility] DTaP, Unspecified 2002-11-11 Completed [facility] ity of Formulation 00:00:00 [facility] Varicella 2002-11-11 Completed [facility] of (varivax)(chicken 00:00:00 [place] [facility] pox) [facility] IPV 2002-11-11 Completed [facility] 00:00:00 [facility] DTAP 2002-11-11 Completed [facility] of 00:00:00 [facility] HIB 4 Dose Schedule 2002-11-11 Completed Unive rsity of 00:00:00 [facility] Hep B, Adol or Pedi 2002-11-11 Completed Unive rsity of Dosage 00:00:00 [facility] MMR 2002-11-11 Completed [facility] of 00:00:00 [facility] Polio (IPV/OPV) 2002-11-11 Completed [facility] 00:00:00 [facility] Varicella 2002-11-11 Completed [facility] of (varivax)(chicken 00:00:00 [place] [facility] pox) [facility] DTAP 2002-11-11 Completed [facility] 00:00:00 [facility] Hep B, Adol or Pedi 2002-11-11 Completed Unive rsity of Dosage 00:00:00 [facility] HIB 4 Dose Schedule 2002-11-11 Completed Unive rsity of 00:00:00 [facility] Polio (IPV/OPV) 2002-11-11 Completed [facility] 00:00:00 [facility] MMR 2002-11-11 Completed [facility] 00:00:00 [facility] Varicella 2002-11-11 Completed [facility] of (varivax)(chicken 00:00:00 [place] [facility] pox) [facility] DTAP 2002-11-11 Completed [facility] 00:00:00 [facility] DTaP, Unspecified 1999-05-14 Completed Univers ity of Formulation 00:00:00 [facility] HIB 4 Dose Schedule 1999-05-14 Completed Unive rsity of 00:00:00 [facility] Poliovirus, Live, 1999-05-14 Completed Univers ity of Oral, Trivalent 00:00:00 [facility] ical Branch DTaP, Unspecified 1999-05-14 Completed Univers ity of Formulation 00:00:00 [facility] HIB 4 Dose Schedule 1999-05-14 Completed Unive rsity of 00:00:00 [facility] Poliovirus, Live, 1999-05-14 Completed Univers ity of Oral, Trivalent 00:00:00 [facility] DTaP, Unspecified 1999-05-14 Completed Univers ity of Formulation 00:00:00 [facility] HIB 4 Dose Schedule 1999-05-14 Completed Unive rsity of 00:00:00 [facility] Poliovirus, Live, 1999-05-14 Completed Univers ity of Oral, Trivalent 00:00:00 [facility] DTaP, Unspecified 1999-05-14 Completed Univers ity of Formulation 00:00:00 [facility] HIB 4 Dose Schedule 1999-05-14 Completed Unive rsity of 00:00:00 [facility] Poliovirus, Live, 1999-05-14 Completed Univers ity of Oral, Trivalent 00:00:00 [facility] DTaP, Unspecified 1999-05-14 Completed Univers ity of Formulation 00:00:00 [facility] HIB 4 Dose Schedule 1999-05-14 Completed Unive rsity of 00:00:00 [facility] Poliovirus, Live, 1999-05-14 Completed Univers ity of Oral, Trivalent 00:00:00 [facility] DTaP, Unspecified 1999-01-26 Completed Univers ity of Formulation 00:00:00 [facility] Hep B, Adol or Pedi 1999-01-26 Completed Unive rsity of Dosage 00:00:00 [facility] HIB 4 Dose Schedule 1999-01-26 Completed Unive rsity of 00:00:00 [facility] Poliovirus, Live, 1999-01-26 Completed Univers ity of Oral, Trivalent 00:00:00 [facility] DTaP, Unspecified 1999-01-26 Completed Univers ity of Formulation 00:00:00 [facility] Hep B, Adol or Pedi 1999-01-26 Completed Unive rsity of Dosage 00:00:00 [facility] HIB 4 Dose Schedule 1999-01-26 Completed Unive rsity of 00:00:00 [facility] Poliovirus, Live, 1999-01-26 Completed Univers ity of Oral, Trivalent 00:00:00 [facility] DTaP, Unspecified 1999-01-26 Completed Univers ity of Formulation 00:00:00 [facility] Hep B, Adol or Pedi 1999-01-26 Completed Unive rsity of Dosage 00:00:00 [facility] HIB 4 Dose Schedule 1999-01-26 Completed Unive rsity of 00:00:00 [facility] Poliovirus, Live, 1999-01-26 Completed Univers ity of Oral, Trivalent 00:00:00 [facility] DTaP, Unspecified 1999-01-26 Completed Univers ity of Formulation 00:00:00 [facility] Hep B, Adol or Pedi 1999-01-26 Completed Unive rsity of Dosage 00:00:00 [facility] HIB 4 Dose Schedule 1999-01-26 Completed Unive rsity of 00:00:00 [facility] Poliovirus, Live, 1999-01-26 Completed Univers ity of Oral, Trivalent 00:00:00 [facility] DTaP, Unspecified 1999-01-26 Completed Univers ity of Formulation 00:00:00 [facility] Hep B, Adol or Pedi 1999-01-26 Completed Unive rsity of Dosage 00:00:00 [facility] HIB 4 Dose Schedule 1999-01-26 Completed Unive rsity of 00:00:00 [facility] Poliovirus, Live, 1999-01-26 Completed Univers ity of Oral, Trivalent 00:00:00 [facility] Hep B, Adol or Pedi 1998 Completed Unive rsity of Dosage 00:00:00 [facility] Hep B, Adol or Pedi 1998 Completed Unive rsity of Dosage 00:00:00 [facility] Hep B, Adol or Pedi 1998 Completed Unive rsity of Dosage 00:00:00 [facility] Hep B, Adol or Pedi 1998 Completed Unive rsity of Dosage 00:00:00 [facility] Hep B, Adol or Pedi 1998 Completed Unive rsity of Dosage 00:00:00 [facility] Vital Signs Vital Name Observation Time Observation Value Comments Source Systolic blood 2023-02-11 18:05:00 112 mm[Hg] Univer sity of pressure [facility] Diastolic blood 2023-02-11 18:05:00 64 mm[Hg] Unive rsity of pressure [facility] Heart rate 2023-02-11 18:05:00 73 /min Universi ty of [facility] Body temperature 2023-02-11 18:05:00 36.78 Roselia Univ ersity of [facility] Respiratory rate 2023-02-11 18:05:00 18 /min Univ ersity of [facility] Body height 2023-02-11 18:05:00 165.1 cm Universi ty of [facility] Body weight 2023-02-11 18:05:00 88.508 kg Universi ty of [facility] BMI 2023-02-11 18:05:00 32.47 kg/m2 Universi ty of [facility] Systolic blood 2022-01-17 03:00:00 119 mm[Hg] Univer sity of pressure [facility] Diastolic blood 2022-01-17 03:00:00 62 mm[Hg] Unive rsity of [facility] Heart rate 2022-01-17 03:00:00 68 /min Universi ty of [facility] Respiratory rate 2022-01-17 03:00:00 16 /min [facility] Oxygen saturation in 2022-01-17 03:00:00 100 /min University Arterial blood by [facility] Pulse oximetry Den[place] Body temperature 2022-01-17 02:03:00 37.28 Roselia Univ ersity of [facility] Body height 2022-01-17 02:03:00 165.1 cm Universi ty of [facility] Body weight 2022-01-17 02:03:00 90.719 kg Universi ty of [facility] BMI 2022-01-17 02:03:00 33.28 kg/m2 Universi ty of [facility] Systolic blood 2019-05-27 20:39:00 107 mm[Hg] Univer sity of pressure [facility] Diastolic blood 2019-05-27 20:39:00 63 mm[Hg] Unive rsity of pressure [facility] Heart rate 2019-05-27 20:39:00 77 /min Universi ty of [facility] Body temperature 2019-05-27 20:39:00 36.94 Roselia Univ ersity of [facility] Respiratory rate 2019-05-27 20:39:00 18 /min Univ ersity of [facility] Body height 2019-05-27 20:39:00 165.1 cm Universi ty of [facility] Body weight 2019-05-27 20:39:00 98.431 kg [facility] ty [facility] BMI 2019-05-27 20:39:00 36.11 kg/m2 [facility] Systolic blood 2019-05-27 20:39:00 107 mm[Hg] Univer sity of pressure [facility] Diastolic blood 2019-05-27 20:39:00 63 mm[Hg] Unive rsity of pressure [facility] Heart rate 2019-05-27 20:39:00 77 /min Universi ty [facility] Body temperature 2019-05-27 20:39:00 36.94 Roselia [facility] Respiratory rate 2019-05-27 20:39:00 18 /min Univ ers[facility] Body height 2019-05-27 20:39:00 165.1 cm [facility] Body weight 2019-05-27 20:39:00 98.431 kg [facility] BMI 2019-05-27 20:39:00 36.11 kg/m2 [facility] Systolic blood 2019-05-17 21:39:00 114 mm[Hg] Univer sity of pressure [facility] Diastolic blood 2019-05-17 21:39:00 71 mm[Hg] Unive rsity of pressure [facility] Heart rate 2019-05-17 21:39:00 103 /min [facility] Body temperature 2019-05-17 21:39:00 37.11 Roselia [facility] Respiratory rate 2019-05-17 21:39:00 18 /min Univ [facility] Body height 2019-05-17 21:39:00 165.1 cm [facility] Body weight 2019-05-17 21:39:00 100.154 kg [facility] BMI 2019-05-17 21:39:00 36.74 kg/m2 [facility] Systolic blood 2019-05-17 21:39:00 114 mm[Hg] Univer sity of pressure [facility] Diastolic blood 2019-05-17 21:39:00 71 mm[Hg] Unive rsity of pressure [facility] Heart rate 2019-05-17 21:39:00 103 /min [facility]i ty [facility] Body temperature 2019-05-17 21:39:00 37.11 Roselia Univ ersity of [facility] Respiratory rate 2019-05-17 21:39:00 18 /min Univ ersity of [facility] Body height 2019-05-17 21:39:00 165.1 cm Universi ty of [facility] Body weight 2019-05-17 21:39:00 100.154 kg Universi ty of [facility] BMI 2019-05-17 21:39:00 36.74 kg/m2 Universi ty of [facility] Systolic blood 2019-05-04 18:09:00 135 mm[Hg] Univer sity of pressure [facility] Diastolic blood 2019-05-04 18:09:00 68 mm[Hg] Unive rsity of pressure [facility] Heart rate 2019-05-04 18:09:00 96 /min Universi ty of [facility] Body temperature 2019-05-04 18:09:00 36.78 Roselia [facility] Respiratory rate 2019-05-04 18:09:00 22 /min [facility] Oxygen saturation in 2019-05-04 18:09:00 100 /min [facility] Arterial blood by [facility] Pulse oximetry Branch Systolic blood 2019-04-29 21:00:00 127 mm[Hg] Univer sity of pressure [facility] Diastolic blood 2019-04-29 21:00:00 68 mm[Hg] Unive rsity of [facility] Heart rate 2019-04-29 21:00:00 87 /min Universi ty of [facility] Body temperature 2019-04-29 21:00:00 36.39 Roselia [facility] ersity of [facility] Respiratory rate 2019-04-29 21:00:00 20 /min [facility] ersity of [facility] Body height 2019-04-29 21:00:00 165.1 cm Universi ty of [facility] Body weight 2019-04-29 21:00:00 98.431 kg Universi ty of [facility] BMI 2019-04-29 21:00:00 36.11 kg/m2 Universi ty of [facility] Procedures Procedure Date / Time Performing Clinician Source Performed POCT URINALYSIS W/O 2023-02-11 18:03:00 Krystal Velasco [facility] SPECIFIC GRAVITY [facility] POCT TEST 2023-02-11 18:02:00 Krystal Velasco [facility] REPORT OF 2023-02-11 05:01:00 Doctor Unassigned, No [facility] LIPASE 2022-01-17 03:09:00 Yvonne Siddiqi [facility] COMP. METABOLIC PANEL 2022-01-17 03:09:00 Yvonne Siddiqi [facility] ([id number]) [facility] CBC WITH DIFF 2022-01-17 03:09:00 Yvonne Siddiqi [facility] POCT TEST 2022-01-17 02:14:00 Abraham Weiner [facility] URINALYSIS 2022-01-17 02:10:00 Husam [facility] NOTICE OF PRIVACY 2022-01-17 01:36:28 Doctor Unassigned, No [facility] CONSENT/REFUSAL FOR 2022-01-17 01:36:18 Doctor Unassigned, No [facility] [place] DIAGNOSIS AND TREATMENT [facility] TDAP (ADACEL) 2019-05-27 20:41:37 Neena [facility] IMMUNIZATION [facility] US ABDOMEN LIMITED 2019-05-17 22:45:16 Neena [facility] ASSIGNMENT OF BENEFITS 2019-05-17 22:12:10 Doctor Unassigned, No [facility] URIN[facility]IS 2019-05-04 18:55:00 Chasidy Bolaños [facility] ADC CLC OR LCC ONLY - 2019-05-04 18:55:00 Chasidy Bolaños [facility] ADC ONLY - FERN TEST 2019-05-04 18:54:00 Chasidy Bolaños [facility] CONSENT/REFUSAL FOR 2019-05-04 17:47:16 Doctor Unassigned, No Un [facility] [place] DIAGNOSIS AND TREATMENT [facility] Encounters Start End Encounter Admission Attending Care Care Encounter Source Date/Time Date/Time Type Type Clinicians Facility Department ID 2022-08-02 Emergency [facility] HFD [id number] [facility] - 05:16:57 [facility] 2021-07-08 Outpatient [facility] [id number] Legacy 14:21:14 [id number] Critical access hospital 2023-03-11 2023-03-11 [id number] Univers 12:45:00 12:45:00 KRYSTAL [facility] 2023-02-18 2023-02-18 [facility] [id number] Univers 00:00:00 00:00:00 Krystal A GANG PUSHER [id number] i ty of REGIONAL 4.2.7.2.686 Juan as MATERNAL [id number] Med ical & CHILD [address] [place] [address] 2023-02-14 2023-02-14 [facility] 1.2.840.114 [id number] Univers 00:00:00 00:00:00 Management Krystal A GANG PUSHER [id number] ity of REGIONAL 4.2.7.2.686 Juan as MATERNAL [id number] Med ical & CHILD [address] [place] [address] 2023-02-14 2023-02-14 Telephone [facility] 1.2.840.114 [id number] Univers 00:00:00 00:00:00 Krystal A GANG PUSHER [id number] i ty of [facility] 4.2.7.2.686 Juan as MATERNAL [id number] [facility] CHILD [address] [place] [address] 2023-02-11 2023-02-11 Outpatient Debra VELASCO [facility] [id number] Univers 13:00:00 14:23:32 KRYSTAL [facility] 2023-02-11 2023-02-11 Initial [facility] 1.2.840.114 [id number] Univers 13:00:00 14:23:32 Krystal A GANG PUSHER [id number] ity of Visit [facility] 4.2.7.2.686 Juan as MATERNAL [id number] [facility] ical & CHILD [address] [place] [address] 2023-02-11 2023-02-11 Tom OLVERA 1.2.840.114 [id number] Univers 00:00:00 00:00:00 Only Unassigned, ZACKERY 350.1.13.10 [facility] 4.2.7.2.686 Juan as [phone] [facility] 009 Branch 2023-02-10 2023-02-10 Outpatient R POLO, [facility] [id number] Univers 08:30:00 08:30:00 STACEY dennison [facility] 2022-08-02 2022-08-02 Emergency E LEEROY [facility]G [facility] 7500 [facility] 04:26:00 11:34:00 2022-01-16 2022-01-17 Emergency X [facility] ERT [id number] Univers 21:05:00 00:11:00 YVONNE franco of [facility] 2022-01-16 2022-01-[address] [facility] [id number] Univers 21:05:00 00:11:00 Yvonne POPE 350.1.13.10 i ty of [place] [phone] [place] 951854 Branch 2021-04-19 2021-04-19 Outpatient R AKINSIPE, [facility] [id number] Univers 13:15:00 13:15:00 STACEY dennison [facility] 2021-02-06 2021-02-06 Case Larry Belcherjatin 1.2.840.114 [id number] 00:00:00 00:00:00 Management Jennifer Harrell 350.1.13.10 [place] 4.2.7.2.686 [id number] [facility] 2021-02-06 2021-02-06 Case Larry Belcherjatin 1.2.840.114 [id number] Univers 00:00:00 00:00:00 Management Jennifer Harrell 350.1.13.10 ity of [place]7.2.[place] [id number] [place] 951856 Branch 2020-12-12 2020-12-12 Patient Geronimo [facility] 1.2.840.114 [id number] 00:00:00 00:00:00 Outreach Broderick PRIMARY 350.1.13.10 [place] CARE 4.2.7.2.686 PAVILLION [id number] 388 2020-12-12 2020-12-12 Patient Geronimo [facility] 1.2.840.114 [id number] Univers 00:00:00 00:00:00 Outreach Broderick PRIMARY 350.1.13.10 i ty of [place]2.7.2.686 [place] [id number] Ut dical [address] [place] [address] 2020-02-28 2020-02-28 Outpatient R NEENA [facility] [id number] Univers 15:00:00 15:00:00 ITZEL [facility] 2019-12-18 2019-12-18 Outpatient R NORMA [facility] [id number] Univers 17:30:00 17:30:00 KRISSY [facility] 2019-11-18 2019-11-18 [facility] [id number] Univers 14:30:00 14:30:00 ITZEL [facility] 2019-05-27 2019-05-27 Routine [facility] [id number] 14:41:30 15:54:53 Itzel Pope 350.1.13.10 Visit [place] 4.2.7.2.686 Professio [id number] [address] 2019-05-27 2019-05-27 Routine [facility] [id number] [id number] Univers 14:41:30 15:54:53 Itzel Pope 350.1.13.10 ity of Visit [place].2.[place] [id number] Ut dical [facility] [address] [facility] 2019-05-17 2019-05-17 Hospital [facility] 1.2.840.114 [id number] Univers 17:15:00 23:59:00 Encounter Itzel Pope 350.1.13.10 ity of [place] [phone] [facility] [address] 2019-05-17 2019-05-17 Belt Buckle Maker 1, [facility] [place] 1.2.840.114 [id number] Univers 17:21:30 17:36:30 Visit BolañosChasidy 350.1.13.10 ity of [place].2.[place] [phone] [facility] [address] 2019-05-17 2019-05-17 Office Neena NVMALLORIE [id number] 15:55:01 16:56:25 Visit Itzel Pope 350.1.13.10 [place] 4.2.7.2.686 Professio [phone] [address] 2019-05-17 2019-05-17 Office Neena [facility] 1.2.232.236 [id number] Univers 15:55:01 16:56:25 Visit Itzel Pope 350.1.13.10 i ty of [place].2.[place] [id number] [address] 2019-05-17 2019-05-17 Orders Doctor MAY 1.2.840.114 [id number] Univers 00:00:00 00:00:00 Only Unassigned, ZACKERY 350.1.13.10 ity of [place] [facility] 4.2.7.2.686 Juan as [id number] [address] 2019-05-05 2019-05-05 Telephone Neena [facility] 1.2.840.114 [id number] Univers 00:00:00 00:00:00 Itzel Pope 350.1.13.10 i ty of [place]2.[place] [phone] [address] 2019-05-04 2019-05-04 Belt Buckle Maker 1, Adc Lab [facility] 1.2.840.114 [id number] Univers 15:07:01 15:22:01 Visit Bolaños Chasidyhadley Pope 350.1.13.10 ity of [place].2.[place] [phone] [address] 2019-05-04 2019-05-04 Hospital Miky Chasidy [facility] 1.2.840.114 [id number] Univers 12:48:00 14:57:00 Encounter Pedro Pope 350.1.13.10 ity of [place].2.[place] [phone] [facility] [address] 2019-05-04 2019-05-04 [facility] 1.2.840.114 [id number] Univers 00:00:00 00:00:00 Itzel Pope 350.1.13.10 i ty of [place].2.[place] [phone] Ut dical nal [address] [facility] 2019-05-04 2019-05-04 Orders Doctor MAY 1.2.840.114 [id number] Univers 00:00:00 00:00:00 Only Unassigned, ZACKERY 350.1.13.10 ity of [place] [facility] 4.2.7.2.686 Juan as [id number] [facility] 009 [address] 2019-04-30 2019-04-30 Case [facility] [id number] [id number] Univers 00:00:00 00:00:00 Management [facility] 350.1.13.10 ity of Surgical 4.2.7.2.686 Juan as Specialti [phone] Ut dical es [address] [facility] 2019-04-29 2019-04-29 Routine Bolaños, Chasidy [facility] [id number] Univers 15:40:17 16:18:51 Pedro Pope 350.1.13.10 ity of Visit [place].2.[place] Profess[place] [phone] Ut dical nal [address] [facility] Results Test Description Test Time Test Comments [...] code = 3257) Trace Negative - Negative [id number] 18:02:00 Test Item Value Reference Range Interpretation Comments POCT PREG (test code = 1605) Positive On board controls acceptable with C Yes Line (test code = 3574) POCT PREG LOT # (test code = 3575) POCT PREG TEST DATE (test code = 3576) [facility]. METABOLIC PANEL (51233)2022-01-17 03:31:19 Test Item Value Reference Range Interpretation Comments NA (test code = 139 mmol/L 135-145 8466070412) K (test code = 4.2 mmol/L 3.5-5.0 1146211889) CL (test code = 105 mmol/L 98-108 1688788852) CO2 TOTAL (test code = 23 mmol/L 23-31 5925732624) AGAP (test code = 2-16 2249847818) BUN (test code = 9 mg/dL 7-23 4924725662) GLUCOSE (test code = 94 mg/dL 70-110 0465829730) CREATININE (test code = 0.61 mg/dL 0.50-1.04 4712926658) TOTAL BILI (test code = 0.9 mg/dL 0.1-1.2 1577580280) CALCIUM (test code = 9.4 mg/dL 8.6-10.6 6309570346) T PROTEIN (test code = 8.3 g/dL 6.3-8.2 H 3210259187) ALBUMIN (test code = 4.7 g/dL 3.5-5.0 6521964966) ALK PHOS (test code = 87 U/L 34-122 1713714745) ALTv (test code = 11 U/L 5-35 1742-6) AST(SGOT) (test code = 19 U/L 13-40 5937760356) eGFR (test code = mL/min/1.73m2 2506124334) TIERRA (test code = TIERRA) Association of [...] tests). Lab Interpretation Abnormal (test code = 29562-3) [facility] 03:31:19 Test Item Value Reference Range Interpretation Comments LIPASE (test code = 8386860013) 68 U/L 0-220 Lab Interpretation (test code = Normal 84557-2) [facility] WITH [id number] 03:28:58 Test Item Value Reference Range Interpretation Comments WBC (test code = See_Comment [Automated 7047-2) message] The sy stem which generated this result transmitted reference range : 4.30 - 11.10 10*3/?L. The reference range was not used to interpret this result as normal/abnormal . RBC (test code = See_Comment [Automated 961-1) message] The sy stem which generated this [...] RDW-SD (test code = 43.8 fL 39.0-49.9 32837-9) RDW-CV (test code = 15.2 % 12.0-15.5 788-0) PLT (test code = See_Comment [Automated 777-3) message] The sy stem which generated this result transmitted reference range : 166 - 358 10*3/ ?L. The reference r suzi was not used to interpret this result as normal/abnormal . MPV (test code = 11.3 fL 9.5-12.9 30156-2) NRBC/100 WBC (test See_Comment [Automat ed code = 8891904687) message] The system which generated this result transmitted reference range : 0.0 - 10.0 /100 WBCs. The refer ence range was not u sed to interpret th is result as normal/abnormal . NRBC x10^3 (test code <0.01 See_Comment [Auto mated = 1446753124) message] The s ystem which generated this result transmitted reference range : 10*3/?L. The reference range was not used to interpret this result as normal/abnormal . GRAN MAT (NEUT) % 71.7 % (test code = 770-8) IMM GRAN % (test code 0.20 % = 6798119828) LYMPH % (test code = 22.5 % 736-9) MONO % (test code = 4.2 % 5905-5) EOS % (test code = 0.8 % 713-8) BASO % (test code = 0.6 % 706-2) GRAN MAT x10^3(ANC) 6.26 10*3/uL 1.88-7.09 (test code = 4728157548) IMM GRAN x10^3 (test <0.03 0.00-0.06 code = 5381451003) LYMPH x10^3 (test code 1.96 10*3/uL 1.32-3.29 = 731-0) MONO x10^3 (test code 0.37 10*3/uL 0.33-0.92 = 742-7) EOS x10^3 (test code = 0.07 10*3/uL 0.03-0.39 711-2) BASO x10^3 (test code 0.05 10*3/uL 0.01-0.07 = 704-7) Lab Interpretation Abnormal (test code = 30929-4) [facility] [id number] 02:14:00 Test Item Value Reference Range Interpretation Comments POCT PREG (test code = 1605) negative On board controls acceptable with present C Line (test code = 3574) POCT PREG LOT # (test code = 3575) [id number] POCT PREG TEST DATE (test 06/21/2023 code = 3576) Lab Interpretation (test code = Normal 81531-0) [facility] ABDOMEN [id number] 23:14:22 Cholelithiasis with no evidence of acute cholecystitis. Mild hepatomegaly. I, Sarita Hernandez MD., have reviewed this study [...] and agree with theabove report.[facility]2019-08-13 19:31:00 Test Item Value Reference Range Interpretation Comments APPEARANCE (test code Slightly Cloudy Clear A = 2228197898) COLOR (test code = Yellow Yellow 0683606470) PH (test code = 4.8-8.0 8284745178) SP GRAVITY (test code <=1.005 1.003-1.030 = 0604632440) GLU U QUAL (test code Negative Negative = 4113583273) BLOOD (test code = Negative Negative 7265586088) KETONES (test code = Negative Negative 7685422469) PROTEIN (test code = Negative Negative 2887-8) UROBILIN (test code = 0.2 mg/dL See_Comment [Auto mated 7592726696) message] The system which generated this result transmit refugio reference range : 0-1.0 mg/dL. Th e reference range was not used to interpret this result as normal/abnormal . BILIRUBIN (test code Negative Negative = 4852691339) NITRITE (test code = Negative Negative 7667526163) LEUK SUMMER (test code Large Negative A = 5943520879) RBC/HPF (test code = See_Comment [Autom ated 7250032545) message] The system which generated this result transmit refugio reference range : 0 - 3 HPF. The reference range was not used to interpret this result as normal/abnormal . WBC/HPF (test code = See_Comment H [Autom ated 5542685774) message] The system which generated this result transmit refugio reference range : 0 - 5 HPF. The reference range was not used to interpret this result as normal/abnormal . BACTERIA (test code = Moderate Negative A 4508478117) SQ EPITH (test code = HPF 3297413344) Lab Interpretation Abnormal (test code = 86454-8) [facility] CLC OR LCC ONLY - WET [id number] 19:28:00 Test Item Value Reference Range Interpretation Comments Wet Prep (test code No Trichomonas vaginalis = 3527825107) present [facility] ONLY - FERN [id number] 19:24:00 Test Item Value Reference Range Interpretation Comments Fern Test (test code = 2514829399) Negative [facility]"
[2023-02-24] MEDS ORDERED: NA CHLORIDE 0.9% 1,000 ML ONE (11:19)
[2023-02-24] MEDS ORDERED: MAGNES/ALUMIN/SIMET 30ML UCUP ONE (11:19)
[2023-02-24] MEDS ORDERED: LIDOCAINE VISCOUS 2% SOLN 15 ML UDC ONE (11:19)
[2023-02-24 11:20] LABS: Absolute Lymphocytes (CBC) 1.3 K/uL (0.7-4.9); Lymphocytes % 23.2 % (15.3-44.8); MCV 78.6 fL (80-100); MPV 9.7 fL (7.6-11.3); RBC Red Blood Cell Count 4.33 M/uL (3.86-4.86)
[2023-02-24 11:23] LABS: Protime INR 1.03
[2023-02-24 11:51] LABS: ALT/SGPT 13 U/L (13-56); AST/SGOT 8 U/L (15-37); Albumin 3.4 g/dL (3.4-5.0); Alkaline Phosphatase 46 U/L (45-117); BUN Blood Urea Nitrogen 4 mg/dL (7-18); Bicarbonate 25 mEq/L (21-32); Bilirubin Direct 0.1 mg/dL (0-0.2); Bilirubin Indirect, Calculated 0.4 mg/dL (0.2-0.8); Bilirubin Total 0.5 mg/dL (0.2-1.0); Glomerular Filtration Rate 132 ml/min (=/>90); Glucose Level 88 mg/dL (74-106); HCG, Quantitative 180364 mIU/mL (1-3); Magnesium 2.1 mg/dL (1.6-2.4); NT PRO-BNP 123 pg/mL (<125); Potassium 3.8 mEq/L (3.5-5.1); Protein, Total 7.2 g/dL (6.4-8.2); Sodium Level 136 mEq/L (136-145); Thyroid Stimulating Hormone 0.214 uIU/mL (0.358-3.740)
[2023-02-24 11:52] LABS: Troponin High Sensitivity < 3.0 pg/mL (<58.9)
[2023-02-24 11:52] LABS: Specific Gravity 1.009 (1.005-1.030)
[2023-02-24] MEDS ORDERED: PROMETHAZINE INJ 25 MG/ML AMP ONE (13:12)
--- NOTE | 2023-02-24 13:24 | ER ---
Nurse's Notes [facility] Name: Arina Valdes Age: 22 yrs Sex: Female : 2000 Arrival Date: 02/24/2023 Time: 10:20 Bed 18 Private MD: Diagnosis: Chest pain, unspecified;Esophagitis, unspecified; state, incidental;Abnormal results of thyroid function studies Presentation: 02/24 10:35 Chief complaint: Burning midsternal chest pain that radiates to left arm and neck, hb palpitations, intermittent SOB, and dizziness upon waking today. Pt is 8 weeks , , OB is Dr. Mendoza at [facility] (formerly [facility])[3]. Coronavirus screen: At this time, the client does not indicate any symptoms associated with coronavirus-19. Ebola Screen: No symptoms or risks identified at this time. Initial Sepsis Screen: Does the patient meet any 2 criteria? No. Patient's initial sepsis screen is negative. Does the patient have a suspected source of infection? No. Patient's initial sepsis screen is negative. Risk Assessment: Do you want to hurt yourself or someone else? Patient reports no desire to harm self or others. Onset of symptoms was February 24, 2023. 10:35 Method Of Arrival: Ambulatory hb 10:35 Acuity: PEYTON 3 hb Triage Assessment: 14:01 General: Appears in no apparent distress. comfortable, Behavior is calm, cooperative. sg5 Pain: Complains of pain in chest and anterior aspect of left upper chest. EENT:. Neuro: Level of Consciousness is awake, alert, obeys commands, Oriented to person, place, time, situation, Appropriate for age. Cardiovascular: Capillary refill < 3 seconds Patient's skin is warm and dry. Respiratory: Airway is patent Trachea midline Respiratory effort is even, unlabored, Respiratory pattern is regular, symmetrical. GI: Abdomen is round non-distended. GI: Reports nausea, vomiting. RN INTERN: 14:02 LMP 12/21/2022 sg5 Historical: - Allergies: 10:38 No Known Drug Allergies; hb - PMHx: 10:38 depressive disorder; pre eclampsia; UTI; hb - Immunization history:: Adult Immunizations up to date. - Social history:: Smoking status: Patient denies any tobacco usage or history of. Screenin:18 [facility] ED Fall Risk Assessment (Adult) History of falling in the last 3 months, sg5 including since admission No falls in past 3 months (0 pts). Abuse screen: Denies threats or abuse. Nutritional screening: No deficits noted. Tuberculosis screening: No symptoms or risk factors identified. Assessment: 11:18 General: Appears in no apparent distress. comfortable. Pain: Complains of pain in chest sg5 and anterior aspect of left upper chest Pain radiates to anterior aspect of left upper chest Pain began suddenly. Neuro: Level of Consciousness is awake, alert, obeys commands, Oriented to person, place, time, situation, Appropriate for age. Cardiovascular: Heart tones S1 S2 present Capillary refill < 3 seconds Patient's skin is warm and dry. Respiratory: Airway is patent Trachea midline Respiratory effort is even, unlabored, Respiratory pattern is regular, symmetrical. GI: Abdomen is round non-distended, Reports nausea, vomiting. : No signs and/or symptoms were reported regarding the genitourinary system. EENT: No signs and/or symptoms were reported regarding the EENT system. Derm: No signs and/or symptoms reported regarding the dermatologic system. Vital Signs: 10:30 BP 113 / 65; Pulse 66; Resp 18; Pulse Ox 100% on R/A; Pain 4/10; sg5 10:35 BP 123 / 82; Pulse 65; Resp 16; Temp 98.5; Pulse Ox 100% on R/A; Weight 90.26 kg; hb Height 5 ft. 5 in. ; Pain 10/10; 11:00 BP 117 / 72; Pulse 72; Resp 18; Pulse Ox 100% on R/A; Pain 4/10; sg5 11:30 BP 114 / 61; Pulse 67; Resp 18; Pulse Ox 100% on R/A; sg5 12:00 BP 128 / 84; Pulse 87; Resp 18; Pulse Ox 100% on R/A; Pain 3/10; sg5 12:30 BP 102 / 67; Pulse 64; Resp 18; Pulse Ox 100% on R/A; Pain 3/10; sg5 13:00 BP 109 / 53; Pulse 60; Resp 18; Pulse Ox 100% on R/A; Pain 3/10; sg5 13:30 BP 112 / 75; Pulse 74; Resp 18; Pulse Ox 100% on R/A; Pain 3/10; sg5 10:35 Body Mass Index 33.11 (90.26 kg, 165.1 cm) hb 10:30 Pain Scale: Adult sg5 10:35 Pain Scale: Adult hb 11:00 Pain Scale: Adult sg5 12:00 Pain Scale: Adult sg5 12:30 Pain Scale: Adult sg5 13:00 Pain Scale: Adult sg5 13:30 Pain Scale: Adult sg5 ED Course: 10:23 Patient arrived in ED. am2 10:31 Molly Kevin FNP-C is PHCP. snw 10:31 Mike Melendez MD is Attending Physician. snw 10:37 Triage completed. hb 10:38 Arm band placed on. EKG completed in triage. Results shown to MD. EKG completed in hb triage. Results shown to MD. 10:39 Deborah Cummings, CARLOS is Primary Nurse. sg5 11:13 Abo/rh Typing Sent. em1 11:13 Strep Sent. em1 11:13 Quantitative Hcg Sent. em1 11:14 TSH Sent. em1 11:14 Basic Metabolic Panel Sent. em1 11:14 CBC with Diff Sent. em1 11:14 LFT's Sent. em1 11:14 Magnesium Sent. em1 11:14 NT PRO-BNP Sent. em1 11:14 PT-INR Sent. em1 11:14 Troponin HS Sent. em1 11:14 Initial lab(s) drawn, by me, sent to lab. Inserted saline lock: 20 gauge in right em1 antecubital area, using aseptic technique. Blood collected. 11:18 Patient has correct armband on for positive identification. Bed in low position. Call sg5 light in reach. Side rails up X 1. Adult w/ patient. Valuables Left with patient. Client placed on continuous cardiac and pulse oximetry monitoring. NIBP monitoring applied. 11:18 Patient maintains SpO2 saturation greater than 95% on room air. sg5 11:44 EKG done, by ED staff, reviewed by Molly COLLINS. em1 14:01 No provider procedures requiring assistance completed. IV discontinued. sg5 Administered Medications: 11:18 Drug: NS 0.9% IV 1000 ml Route: IV; Rate: 1 bolus; Site: right antecubital; sg5 13:48 Follow up: IV Status: Completed infusion sg5 11:18 Drug: GI Cocktail without - (Maalox PO Suspension 30 ml, Lidocaine Mucous sg5 Membrane Liquid 2 % 15 ml) Route: PO; 13:05 Drug: Promethazine IVP 25 mg Route: IVP; Site: right antecubital; sg5 Medication: 14:04 VIS not applicable for this client. sg5 Outcome: 13:23 Discharge ordered by MD. gann 14:02 Discharged to home ambulatory, with significant other. sg5 14:02 Condition: good 14:02 Discharge instructions given to patient, Instructed on discharge instructions, follow up and referral plans. 14:04 Patient left the ED. sg5 Signatures: Molly Kevin, COAL TOWER OPERATOR-C COAL TOWER OPERATOR-Tanvir Robledo em1 Anita Ramires, RN RN Tiffany Mcdowell am2 Deborah Cummings RN RN sg5
--- NOTE | 2023-02-24 13:24 | EDPHYS ---
Physician Documentation [facility] Name: Arina Valdes Age: 22 yrs Sex: Female : 2000 Arrival Date: 02/24/2023 Time: 10:20 Bed 18 Private MD: ED Physician Mike Melendez HPI: 02/24 10:56 This 22 yrs old Female presents to ER via Ambulatory with complaints of Chest snw Pressure, Arm Pain - radiating to neck, Irregular Pulse. 10:56 Onset: The symptoms/episode began/occurred acutely. Associated signs and symptoms: snw Pertinent positives: n/v. The patient has experienced a previous episode. The patient has been recently seen by a physician: an licensed occupational therapist specialist. pt is 8wk 5 days IUP. Multiple miscarriages and hx of PIH. DIRECTOR BUSINESS: 14:02 LMP 12/21/2022 sg5 Historical: - Allergies: 10:38 No Known Drug Allergies; hb - PMHx: 10:38 depressive disorder; pre eclampsia; UTI; hb - Immunization history:: Adult Immunizations up to date. - Social history:: Smoking status: Patient denies any tobacco usage or history of. ROS: 10:54 Constitutional: Negative for fever, chills, and weight loss, Eyes: Negative for injury, snw pain, redness, and discharge, ENT: Negative for injury, pain, and discharge, Neck: Negative for injury, pain, and swelling. 10:54 Respiratory: Negative for shortness of breath, cough, wheezing, and pleuritic chest pain. 10:54 Back: Negative for injury and pain, : Negative for injury, bleeding, discharge, and swelling, MS/Extremity: Negative for injury and deformity. 10:54 Neuro: Negative for headache, weakness, numbness, tingling, and seizure, Psych: Negative for depression, anxiety, suicide ideation, homicidal ideation, and hallucinations. 10:54 Cardiovascular: Positive for chest pain, of the anterior aspect of left upper chest. 10:54 Abdomen/GI: Positive for nausea and vomiting. 10:54 Skin: Positive for numbness/tingling to left arm. Exam: 10:54 Constitutional: This is a well developed, well nourished patient who is awake, alert, snw and in no acute distress. Head/Face: Normocephalic, atraumatic. Eyes: Pupils equal round and reactive to light, extra-ocular motions intact. Lids and lashes normal. Conjunctiva and sclera are non-icteric and not injected. Cornea within normal limits. Periorbital areas with no swelling, redness, or edema. ENT: Nares patent. No nasal discharge, no septal abnormalities noted. Tympanic membranes are normal and external auditory canals are clear. Oropharynx with no redness, swelling, or masses, exudates, or evidence of obstruction, uvula midline. Mucous membranes moist. Neck: Trachea midline, no thyromegaly or masses palpated, and no cervical lymphadenopathy. Supple, full range of motion without nuchal rigidity, or vertebral point tenderness. No Meningismus. Chest/axilla: Normal chest wall appearance and motion. Nontender with no deformity. No lesions are appreciated. Cardiovascular: Regular rate and rhythm with a normal S1 and S2. No gallops, murmurs, or rubs. Normal PMI, no JVD. No pulse deficits. Respiratory: Lungs have equal breath sounds bilaterally, clear to auscultation and percussion. No rales, rhonchi or wheezes noted. No increased work of breathing, no retractions or nasal flaring. Abdomen/GI: Soft, non-tender, with normal bowel sounds. No distension or tympany. No guarding or rebound. No evidence of tenderness throughout. Back: No spinal tenderness. No costovertebral tenderness. Full range of motion. Skin: Warm, dry with normal turgor. Normal color with no rashes, no lesions, and no evidence of cellulitis. MS/ Extremity: Pulses equal, no cyanosis. Neurovascular intact. Full, normal range of motion. Neuro: Awake and alert, GCS 15, oriented to person, place, time, and situation. Cranial nerves II-XII grossly intact. Motor strength 5/5 in all extremities. Sensory grossly intact. Cerebellar exam normal. Normal gait. Psych: Awake, alert, with orientation to person, place and time. Behavior, mood, and affect are within normal limits. Vital Signs: 10:30 BP 113 / 65; Pulse 66; Resp 18; Pulse Ox 100% on R/A; Pain 4/10; sg5 10:35 BP 123 / 82; Pulse 65; Resp 16; Temp 98.5; Pulse Ox 100% on R/A; Weight 90.26 kg; hb Height 5 ft. 5 in. ; Pain 10/10; 11:00 BP 117 / 72; Pulse 72; Resp 18; Pulse Ox 100% on R/A; Pain 4/10; sg5 11:30 BP 114 / 61; Pulse 67; Resp 18; Pulse Ox 100% on R/A; sg5 12:00 BP 128 / 84; Pulse 87; Resp 18; Pulse Ox 100% on R/A; Pain 3/10; sg5 12:30 BP 102 / 67; Pulse 64; Resp 18; Pulse Ox 100% on R/A; Pain 3/10; sg5 13:00 BP 109 / 53; Pulse 60; Resp 18; Pulse Ox 100% on R/A; Pain 3/10; sg5 13:30 BP 112 / 75; Pulse 74; Resp 18; Pulse Ox 100% on R/A; Pain 3/10; sg5 10:35 Body Mass Index 33.11 (90.26 kg, 165.1 cm) hb 10:30 Pain Scale: Adult sg5 10:35 Pain Scale: Adult hb 11:00 Pain Scale: Adult sg5 12:00 Pain Scale: Adult sg5 12:30 Pain Scale: Adult sg5 13:00 Pain Scale: Adult sg5 13:30 Pain Scale: Adult sg5 MDM: 10:32 Patient medically screened. snw 13:20 Differential diagnosis: viral Infection, bacterial infection, UTI, gastroenteritis. snw Data reviewed: vital signs, nurses notes, lab test result(s), EKG. I considered the following discharge prescriptions or medication management in the emergency department Medications were administered in the Emergency Department. See MAR. Counseling: I had a detailed discussion with the patient and/or guardian regarding: the historical points, exam findings, and any diagnostic results supporting the discharge/admit diagnosis, lab results, the need for outpatient follow up, for definitive care, to return to the emergency department if symptoms worsen or persist or if there are any questions or concerns that arise at home. Response to treatment: the patient's symptoms have markedly improved after treatment. Special discussion: Based on the patient's history, exam, and Dx evaluation, there is no indication for emergent intervention or inpatient Tx. It is understood by the patient/guardian that if the Sx's persist or worsen they need to return immediately for re-evaluation. Based on the history and exam findings, there is no indication for further emergent testing or inpatient evaluation. I discussed with the patient/guardian the need to see the OB Gyne specialist for further evaluation of the symptoms. 02/24 10:44 Order name: Basic Metabolic Panel; Complete Time: 13:20 w 02/24 10:44 Order name: CBC with Diff; Complete Time: 11:23 snw 02/24 10:44 Order name: LFT's; Complete Time: 13:20 snw 02/24 10:44 Order name: Magnesium; Complete Time: 13:20 snw 02/24 10:44 Order name: NT PRO-BNP; Complete Time: 13:20 snw 02/24 10:44 Order name: PT-INR; Complete Time: 11:25 snw 02/24 10:44 Order name: Troponin HS; Complete Time: 13:20 w 02/24 10:44 Order name: TSH; Complete Time: 13:20 w 02/24 10:44 Order name: Abo/rh Typing; Complete Time: 11:43 w 02/24 10:44 Order name: Test, Urine; Complete Time: 11:56 w 02/24 10:44 Order name: Quantitative Hcg; Complete Time: 13:20 w 02/24 10:56 Order name: Strep; Complete Time: 11:43 w 02/24 11:32 Order name: Throat Culture [facility] 02/24 12:18 Order name: Add On-Lab 02/24 13:07 Order name: T4 Free; Complete Time: 13:20 [facility] 02/24 10:44 Order name: EKG; Complete Time: 10:45 w 02/24 10:44 Order name: Cardiac monitoring [facility] 02/24 10:44 Order name: EKG - Nurse/Tech; Complete Time: 11:44 snw 02/24 10:44 Order name: IV Saline Lock; Complete Time: 11:14 w 02/24 10:44 Order name: Labs collected and sent; Complete Time: 11:14 w 02/24 10:44 Order name: O2 Per Protocol [facility] 02/24 10:44 Order name: O2 Sat Monitoring snw EC:40 Rate is 66 beats/min. Rhythm is irregular. QRS [place] is Normal. NV interval is normal. snw QRS interval is normal. QT interval is normal. Clinical impression: Sinus arrythmia. Administered Medications: 11:18 Drug: NS 0.9% IV 1000 ml Route: IV; Rate: 1 bolus; Site: right antecubital; sg5 13:48 Follow up: IV Status: Completed infusion sg5 11:18 Drug: GI Cocktail without - (Maalox PO Suspension 30 ml, Lidocaine Mucous sg5 Membrane Liquid 2 % 15 ml) Route: PO; 13:05 Drug: Promethazine IVP 25 mg Route: IVP; Site: right antecubital; sg5 Disposition: 14:53 Co-signature as Attending Physician, Mike Melendez MD I reviewed the patient's care rt provided by the Advanced Practice Provider and agree with the diagnosis and treatment plan. Disposition Summary: 02/24/23 13:23 Discharge Ordered Location: Home snw Condition: Stable snw Diagnosis - Chest pain, unspecified snw - Esophagitis, unspecified snw - state, incidental snw - Abnormal results of thyroid function studies snw Followup: snw - With: Emergency Department - When: As needed - Reason: Worsening of condition Followup: snw - With: Private Physician - When: 1 - 2 days - Reason: Recheck today's complaints, Continuance of care, Re-evaluation by your physician Discharge Instructions: - Discharge Summary Sheet snw - Nonspecific Chest Pain, Adult snw - and Anemia snw - Heartburn During snw Forms: - Work release form snw - Medication Reconciliation Form snw - Thank You Letter snw - Antibiotic Education snw - Prescription Opioid Use snw Signatures: Dispatcher [employer] EDMS Molly Kevin, NORRIS-C PHARMACEUTICAL PLANT OPERATOR-Csnw Anita Ramires, RN RN Mike Melendez MD MD rt Deborah Cummings RN RN sg5
[2023-02-24 14:21] VITALS: O2SAT 100
[2023-02-24 14:24] VITALS: TEMP 98.5
[2023-02-24 14:35] VITALS: BP 112/75
--- NOTE | 2023-02-26 07:22 | EKG ---
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
== END 2023-02-24 14:04 | disposition home or self-care (01) ==
LOC: ER 10:20
DX: R07.9 Chest pain, unspecified (principal); K20.90 Esophagitis, unspecified without bleeding; R94.6 Abnormal results of thyroid function studies; Z33.1 Pregnant state, incidental
CPT/HCPCS: 36415; 80048; 80076; 81025; 83735; 83880; 84439; 84443; 84484; 84702; 85025; 85610; 86900; 86901; 87070; 87081; 93005; 96361; 96374; 99285; J2550; J7030

== ENCOUNTER 2023-06-26 13:08 | Emergency (ER) | payer OTHER ==
--- OUTSIDE RECORDS SUMMARY | 2023-06-26 13:17 | XMS REPORT | Continuity of Care Document ---
:2000 Author Organization [facility] t Address [address] [place] [address] Care Team Providers Name Role Phone Kory Cruz MD Primary Care Physician KORY CRUZ Attending Clinician Unavailable Kory Cruz MD Attending Clinician Sammy GONZALEZ, Heidi Stinson Attending Clinician Unavailable Doctor Unassigned, [place] Attending Clinician Unavailable Huy Prakash Attending Clinician [phone] HUY CUELLAR Attending Clinician Unavailable Krystal Velasco CNM Attending Clinician SHELLEY OCASIO Attending Clinician Unavailable Ultrasound, Ang-[facility] Attending Clinician Unavailable Shelley Ocasio MD Attending Clinician [phone] KRYSTAL VELASCO Attending Clinician Unavailable HILLARY WILKINSONSOL Attending Clinician Unavailable MAJO ARIELA Attending Clinician Unavailable LEEROY DENG Attending Clinician Unavailable YVONNE SIDDIQI Attending Clinician Unavailable Yvonne Rodriguez Attending Clinician Jennifer Belcher LMSW Attending Clinician Unavailable Broderick Melton DO Attending Clinician JOSY CHAUDHARY Attending Clinician Unavailable KRISSY GREEN Attending Clinician Unavailable Josy Chaudhary PA-C Attending Clinician 1, [facility] Attending Clinician Unavailable ARIELA WILKINSON Admitting Clinician Unavailable KORY CRUZ Admitting Clinician Unavailable Kory Cruz MD Admitting Clinician Payers Payer Name Policy Type Policy Number Effective Date Expiration Date [facility] [id number] 2023 STAR 00:00:00 MEDICAID PENDING PENDING 2023 2023 00:00:00 00:00:00 MED[place] OF [place] [id number] 2023 2023 00:00:00 00:00:[address] [facility] STAR [id number] 2018 00:00:00 Problems Condition Condition Condition Status Onset Resolution Last Treating Co mments Source Name Details Category Date Date Treatment Clinician Date Trichomona Trichomona Disease Active U nivers l l 5-26 [place] during 00 Medical Bran ch Maternal Maternal Disease Active Unive rs varicella, varicella, 5-24 it y of non-immune non-immune 00:00: [place] 00 [place] Obesity Obesity Disease Active Univers affecting affecting 5-23 [place] Nausea and Nausea and Disease Active U nivers vomiting vomiting 5-23 ity of during during 00:00: [place] 00 [facility] Branch History of History of Disease Active Overview : Univers heart heart -23 [place] ity of murmur in murmur in 00:00: [place] childhood childhood 00 note [facility] might be Branch different from the original. Age 12EKG NSR with sinus arrhythmi a. Normal EKG compared to 7. Family Family Disease Active Overview: Univmaksim s history of history of 5-23 Form[place] ity of autism autism 00:00: g of this [place] 00 note Medical might be Branch different from the original. Patient sister and daughter Nexplanon Nexplanon Disease Active 2018-09 Uni vers insertion insertion 2-16 ity of 00:00: [place] [address] Medical Branch Nexplanon Nexplanon Disease Active 2018-[address] in place 2-16 ity of 00:00: [place] [address] Medical Branch Encounter Encounter Disease Active 2018-09 Uni vers for female for female 2-16 it y of 00:00: [place] control control Medical Branch Anemia, Anemia, Disease Active 2018-09 Univers antepartum antepartum 1-12 it y of , third , third 00:00: [place] trimester trimester 00 [facility] Branch Obesity Obesity Disease Active Univers (BMI (BMI 4-15 ity of 30-39.9) 30-39.9) 00:00: [place] [address] Medical Branch History of History of Disease Active U nivers depression depression 4-15 it y of 00:00: [place] [address] Medical Branch History of History of Disease Active U nivers anxiety anxiety 4-15 ity of and and 00:00: [place] depression depression 00 [facility] Branch Anxiety Anxiety Disease Active Univers during during 4-15 [facility] [place] [facility] [address] [place] [address] Allergies, Adverse Reactions, Alerts Allergy Allergy Status Severity Reaction(s) Onset Inactive Treating Comm ents Source Name Type Date Date Clinician NO KNOWN Drug Active Univers ALLERGIE Class ity of S [facility] Social History Social Habit Start Date Stop Date Quantity Comments Source ASSERTION 2023-01-10 University of 00:00:00 [facility] History of tobacco Passive smoker Un iversity of use [facility] Gender identity Universit y of [facility] Sexual orientation Univer sity of [facility] History of Social 2023-02-11 2023-02-11 Univers ity of function 00:00:00 00:00:00 [facility] Exposure to 2022-01-06 2022-01-16 Unable to assess Univers ity of SARS-CoV-2 (event) 00:00:00 20:33:00 [facility] Alcohol intake 2019-09-06 2019-09-06 Current University of 00:00:00 00:00:00 non-drinker of [facility] alcohol [place] (finding) Tobacco Comment 2019-01-04 2019-01-04 fiance smokes Univer sity of 00:00:00 00:00:00 outside [facility] Tobacco use and 2019-01-04 2019-01-04 Smokeless Universit y of exposure 00:00:00 00:00:00 tobacco non-user [facility] Sex Assigned At [birth year] Universit y of 00:00:00 00:00:00 [facility] Smoking Status Start Date Stop Date Source Never smoked tobacco [facility] Medications Ordered Filled Start Stop Current Ordering Indication Dosage Frequency Signature Comments Components Source Medication Medication Date Date Medication? Clinician (SIG) Name Name SERTraline 2022-0 Yes [id number] 100mg Take 1 Univers 100 mg 8-30 109 tablet by ity of tablet 00:00: mouth in [place] 00 the Medical morning. Branch SERTraline 2022-0 Yes [id number] 100mg Take 1 Univers 100 mg 8-30 109 tablet by ity of tablet 00:00: mouth in [place] the Medical morning. Branch SERTraline 2022-0 Yes [id number] 100mg Take 1 Univers 100 mg 8-30 109 tablet by ity of tablet 00:00: mouth in [place] the Medical morning. Branch SERTraline 2022-0 Yes [id number] 100mg Take 1 Univers 100 mg 8-30 109 tablet by ity of tablet 00:00: mouth in [place] the Medical morning. Branch SERTraline 2022-0 Yes [id number] 100mg Take 1 Univers 100 mg 8-30 109 tablet by ity of tablet 00:00: mouth in [place] the Medical morning. Branch SERTraline 2022-0 Yes [id number] 100mg Take 1 Univers 100 mg 8-30 109 tablet by ity of tablet 00:00: mouth in [place] the Medical morning. Branch SERTraline 3-0 Yes [id number] 100mg Take 1 Univers 100 mg 8-30 109 tablet by ity of tablet 00:00: mouth in [place] 00 the Medical morning. Branch ondansetron 2022- No 4mg 4 mg, Slow Univers (ZOFRAN 04-18 IV Push, ity of (PF)) 20:45: 20:21 ONCE, On [place] injection 4 00 :00 Fri Medical mg 04/18/23 at Branch 1545, For 1 dose
Do ses of ondansetro n 16 mg and above need to be administer ed via IV piggyback. For Dose >=24mg ECG monitoring is advisable.
NaCl 0.9% 2022- No 1000mL at 999 Uni vers (NS) bolus 04-18 mL/hr, ity of infusion 20:30: 19:32 1,000 mL, [place] 1,000 mL 00 :00 IV Medical Infusion, Branch ONCE, 1 dose, On Fri04/18/23 at 1530, STAT NaCl 0.9% 0 2022- No 1000mL at 999 Uni vers (NS) bolus 04-18 mL/hr, ity of infusion 19:15: 18:27 1,000 mL, [place] 1,000 mL 00 :00 IV Medical Infusion, Branch ONCE, 1 dose, On Fri04/18/23 at 1415, STAT metroNIDAZO 3-0 Yes [id number] 500mg Take 1 Univers LE (FLAGYL) 7-28 tablet by ity of 500 mg 00:00: mouth [place] tablet 00 every 12 Medical (twelve) Branch hours. metroNIDAZO 2023-0 Yes [id number] 500mg Take 1 Univers LE (FLAGYL) 7-28 tablet by ity of 500 mg 00:00: mouth [place] tablet 00 every 12 Medical (twelve) Branch hours. metroNIDAZO 2023-0 Yes [id number] 500mg Take 1 Univers LE (FLAGYL) 7-28 tablet by ity of 500 mg 00:00: mouth [place] tablet 00 every 12 Medical (twelve) Branch hours. metroNIDAZO 2023-0 Yes [id number] 500mg Take 1 Univers LE (FLAGYL) 7-28 tablet by ity of 500 mg 00:00: mouth [place] tablet 00 every 12 Medical (twelve) Branch hours. metroNIDAZO 2023-0 Yes [id number] 500mg Take 1 Univers LE (FLAGYL) 7-28 tablet by ity of 500 mg 00:00: mouth [place] tablet 00 every 12 Medical (twelve) Branch hours. metroNIDAZO 2022-0 Yes [id number] 500mg Take 1 Univers LE (FLAGYL) 7-28 tablet by ity of 500 mg 00:00: mouth [place] tablet 00 every 12 Medical (twelve) Branch hours. metroNIDAZO 2022-0 Yes [id number] 500mg Take 1 Univers LE (FLAGYL) 7-28 tablet by ity of 500 mg 00:00: mouth [place] tablet 00 every 12 Medical (twelve) Branch hours. metroNIDAZO 2022-0 Yes [id number] 500mg Take 1 Univers LE (FLAGYL) 7-28 tablet by ity of 500 mg 00:00: mouth [place] tablet 00 every 12 Medical (twelve) Branch hours. metroNIDAZO 2022-0 Yes [id number] 500mg Take 1 Univers LE (FLAGYL) 7-28 tablet by ity of 500 mg 00:00: mouth [place] tablet 00 every 12 Medical (twelve) Branch hours. metroNIDAZO 2022-0 Yes [id number] 500mg Take 1 Univers LE (FLAGYL) 7-28 tablet by ity of 500 mg 00:00: mouth [place] tablet 00 every 12 Medical (twelve) Branch hours. fluconazole 2022-0 2022- Yes [id number] 150mg Take 1 Univers (DIFLUCAN) 7-17 07-18 tablet by ity of 150 mg 00:00: 04:59 mouth [place] tablet 00 :00 now for 1 Medical dose. Branch proMETHazin 2022-0 Yes [id number] 25mg Take 1 Univers e 25 mg 7-13 tablet by ity of tablet 00:00: mouth [place] 00 every 4 Medical (four) Branch hours as needed for Nausea and Vomiting (N/V). proMETHazin 2022-0 Yes [id number] 25mg Take 1 Univers e 25 mg 7-13 tablet by ity of tablet 00:00: mouth [place] 00 every 4 Medical (four) Branch hours as needed for Nausea and Vomiting (N/V). proMETHazin 2022-0 Yes [id number] 25mg Take 1 Univers e 25 mg 7-13 tablet by ity of tablet 00:00: mouth [place] 00 every 4 Medical (four) Branch hours as needed for Nausea and Vomiting (N/V). proMETHazin 2023-0 Yes [id number] 25mg Take 1 Univers e 25 mg 7-13 tablet by ity of tablet 00:00: mouth [place] 00 every 4 Medical (four) Branch hours as needed for Nausea and Vomiting (N/V). proMETHazin 3-0 Yes [id number] 25mg Take 1 Univers e 25 mg 7-13 tablet by ity of tablet 00:00: mouth [place] 00 every 4 Medical (four) Branch hours as needed for Nausea and Vomiting (N/V). proMETHazin 3-0 Yes [id number] 25mg Take 1 Univers e 25 mg 7-13 tablet by ity of tablet 00:00: mouth [place] 00 every 4 Medical (four) Branch hours as needed for Nausea and Vomiting (N/V). proMETHazin 3-0 Yes [id number] 25mg Take 1 Univers e 25 mg 7-13 tablet by ity of tablet 00:00: mouth [place] 00 every 4 Medical (four) Branch hours as needed for Nausea and Vomiting (N/V). proMETHazin 3-0 Yes [id number] 25mg Take 1 Univers e 25 mg 7-13 tablet by ity of tablet 00:00: mouth [place] 00 every 4 Medical (four) Branch hours as needed for Nausea and Vomiting (N/V). proMETHazin 3-0 Yes [id number] 25mg Take 1 Univers e 25 mg 7-13 tablet by ity of tablet 00:00: mouth [place] 00 every 4 Medical (four) Branch hours as needed for Nausea and Vomiting (N/V). proMETHazin 3-0 Yes [id number] 25mg Take 1 Univers e 25 mg 7-13 tablet by ity of tablet 00:00: mouth [place] 00 every 4 Medical (four) Branch hours as needed for Nausea and Vomiting (N/V). proMETHazin 3-0 Yes [id number] 25mg Take 1 Univers e 25 mg 7-13 tablet by ity of tablet 00:00: mouth [place] 00 every 4 Medical (four) Branch hours as needed for Nausea and Vomiting (N/V). proMETHazin 2023-0 Yes [id number] 25mg Take 1 Univers e 25 mg 7-13 tablet by ity of tablet 00:00: mouth [place] 00 every 4 Medical (four) Branch hours as needed for Nausea and Vomiting (N/V). proMETHazin 2023-0 Yes [id number] 25mg Take 1 Univers e 25 mg 7-13 tablet by ity of tablet 00:00: mouth [place] 00 every 4 Medical (four) Branch hours as needed for Nausea and Vomiting (N/V). proMETHazin Yes [id number] 25mg Take 1 Univers e 25 mg 7-13 tablet by ity of tablet 00:00: mouth [place] 00 every 4 Medical (four) Branch hours as needed for Nausea and Vomiting (N/V). SERTraline 2022- Yes [id number] Take 1 Univers (ZOLOFT) 50 04-03 109 tablet by it y of mg tablet 00:00: 04:59 mouth [place] 00 :00 daily for Medical 4 days, Branch THEN 2 tablets daily for 30 days. SERTraline 2022- Yes [id number] Take 1 Univers (ZOLOFT) 50 04-03 109 tablet by it y of mg tablet 00:00: 04:59 mouth [place] 00 :00 daily for Medical 4 days, Branch THEN 2 tablets daily for 30 days. SERTraline 2022- Yes [id number] Take 1 Univers (ZOLOFT) 50 04-03 109 tablet by it y of mg tablet 00:00: 04:59 mouth [place] 00 :00 daily for Medical 4 days, Branch THEN 2 tablets daily for 30 days. SERTraline 2022- No [id number] Take 1 Univers (ZOLOFT) 50 04-03 109 tablet by it y of mg tablet 00:00: 04:59 mouth [place] 00 :00 daily for Medical 4 days, Branch THEN 2 tablets daily for 30 days. SERTraline 2022- Yes [id number] Take 1 Univers (ZOLOFT) 50 04-03 109 tablet by it y of mg tablet 00:00: 04:59 mouth [place] 00 :00 daily for Medical 4 days, Branch THEN 2 tablets daily for 30 days. SERTraline 2022- Yes [id number] Take 1 Univers (ZOLOFT) 50 04-03 109 tablet by it y of mg tablet 00:00: 04:59 mouth [place] 00 :00 daily for Medical 4 days, Branch THEN 2 tablets daily for 30 days. Yes [id number] 1{packe Take 1 Univers vit 6-20 t} Packet by ity of 33-iron-fol 00:00: mouth in [place] ic-dha 00 the Medical (SELECT-OB morning. Branc h + DHA) 29 mg iron-1 mg -250 mg combo pack Yes [id number] 1{packe Take 1 Univers vit 6-20 t} Packet by ity of 33-iron-fol 00:00: mouth in [place] ic-dha 00 the Medical (SELECT-OB morning. Branc h + DHA) 29 mg iron-1 mg -250 mg combo pack Yes [id number] 1{packe Take 1 Univers vit 6-20 t} Packet by ity of 33-iron-fol 00:00: mouth in [place] ic-dha 00 the Medical (SELECT-OB morning. Branc h + DHA) 29 mg iron-1 mg -250 mg combo pack Yes [id number] 1{packe Take 1 Univers vit 6-20 t} Packet by ity of 33-iron-fol 00:00: mouth in [place] ic-dha 00 the Medical (SELECT-OB morning. Branc h + DHA) 29 mg iron-1 mg -250 mg combo pack Yes [id number] 1{packe Take 1 Univers vit 6-20 t} Packet by ity of 33-iron-fol 00:00: mouth in [place] ic-dha 00 the Medical (SELECT-OB morning. Branc h + DHA) 29 mg iron-1 mg -250 mg combo pack Yes [id number] 1{packe Take 1 Univers vit 6-20 t} Packet by ity of 33-iron-fol 00:00: mouth in [place] ic-dha 00 the Medical (SELECT-OB morning. Branc h + DHA) 29 mg iron-1 mg -250 mg combo pack Yes [id number] 1{packe Take 1 Univers vit 6-20 t} Packet by ity of 33-iron-fol 00:00: mouth in [place] ic-dha 00 the Medical (SELECT-OB morning. Branc h + DHA) 29 mg iron-1 mg -250 mg combo pack Yes [id number] 1{packe Take 1 Univers vit 6-20 t} Packet by ity of 33-iron-fol 00:00: mouth in [place] ic-dha 00 the Medical (SELECT-OB morning. Branc h + DHA) 29 mg iron-1 mg -250 mg combo pack Yes [id number] 1{packe Take 1 Univers vit 6-20 t} Packet by ity of 33-iron-fol 00:00: mouth in [place] ic-dha 00 the Medical (SELECT-OB morning. Branc h + DHA) 29 mg iron-1 mg -250 mg combo pack Yes [id number] 1{packe Take 1 Univers vit 6-20 t} Packet by ity of 33-iron-fol 00:00: mouth in [place] ic-dha 00 the Medical (SELECT-OB morning. Branc h + DHA) 29 mg iron-1 mg -250 mg combo pack Yes [id number] 1{packe Take 1 Univers vit 6-20 t} Packet by ity of 33-iron-fol 00:00: mouth in [place] ic-dha 00 the Medical (SELECT-OB morning. Branc h + DHA) 29 mg iron-1 mg -250 mg combo pack Yes [id number] 1{packe Take 1 Univers vit 6-20 t} Packet by ity of 33-iron-fol 00:00: mouth in [place] ic-dha 00 the Medical (SELECT-OB morning. Branc h + DHA) 29 mg iron-1 mg -250 mg combo pack Yes [id number] 1{packe Take 1 Univers vit 6-20 t} Packet by ity of 33-iron-fol 00:00: mouth in [place] ic-dha 00 the Medical (SELECT-OB morning. Branc h + DHA) 29 mg iron-1 mg -250 mg combo pack Yes [id number] 1{packe Take 1 Univers vit 6-20 t} Packet by ity of 33-iron-fol 00:00: mouth in [place] ic-dha 00 the Medical (SELECT-OB morning. Branc h + DHA) 29 mg iron-1 mg -250 mg combo pack Yes [id number] 1{packe Take 1 Univers vit 6-20 t} Packet by ity of 33-iron-fol 00:00: mouth in [place] ic-dha 00 the Medical (SELECT-OB morning. Branc h + DHA) 29 mg iron-1 mg -250 mg combo pack 0 Yes [id number] 1{packe Take 1 Univers vit 6-20 t} Packet by ity of 33-iron-fol 00:00: mouth in [place] ic-dha 00 the Medical (SELECT-OB morning. Branc h + DHA) 29 mg iron-1 mg -250 mg combo pack 0 Yes [id number] 1{packe Take 1 Univers vit 6-20 t} Packet by ity of 33-iron-fol 00:00: mouth in [place] ic-dha 00 the Medical (SELECT-OB morning. Branc h + DHA) 29 mg iron-1 mg -250 mg combo pack Yes [id number] 1{packe Take 1 Univers vit 6-20 t} Packet by ity of 33-iron-fol 00:00: mouth in [place] ic-dha 00 the Medical (SELECT-OB morning. Branc h + DHA) 29 mg iron-1 mg -250 mg combo pack Yes [id number] 1{packe Take 1 Univers vit 6-20 t} Packet by ity of 33-iron-fol 00:00: mouth in [place] ic-dha 00 the Medical (SELECT-OB morning. Branc h + DHA) 29 mg iron-1 mg -250 mg combo pack Yes [id number] 1{packe Take 1 Univers vit 6-20 t} Packet by ity of 33-iron-fol 00:00: mouth in [place] ic-dha 00 the Medical (SELECT-OB morning. Branc h + DHA) 29 mg iron-1 mg -250 mg combo pack proMETHazin 3-0 Yes [id number] 25mg Take 1 Univers e 25 mg 5-30 tablet by ity of tablet 00:00: mouth [place] 00 every 4 Medical (four) Branch hours as needed for Nausea and Vomiting (N/V). proMETHazin 2023-0 Yes [id number] 25mg Take 1 Univers e 25 mg 5-30 tablet by ity of tablet 00:00: mouth [place] 00 every 4 Medical (four) Branch hours as needed for Nausea and Vomiting (N/V). proMETHazin 2022-0 Yes [id number] 25mg Take 1 Univers e 25 mg 5-30 tablet by ity of tablet 00:00: mouth [place] 00 every 4 Medical (four) Branch hours as needed for Nausea and Vomiting (N/V). proMETHazin 2022-0 Yes [id number] 25mg Take 1 Univers e 25 mg 5-30 tablet by ity of tablet 00:00: mouth [place] 00 every 4 Medical (four) Branch hours as needed for Nausea and Vomiting (N/V). proMETHazin 2022-0 Yes [id number] 25mg Take 1 Univers e 25 mg 5-30 tablet by ity of tablet 00:00: mouth [place] 00 every 4 Medical (four) Branch hours as needed for Nausea and Vomiting (N/V). proMETHazin 2022-0 Yes [id number] 25mg Take 1 Univers e 25 mg 5-30 tablet by ity of tablet 00:00: mouth [place] 00 every 4 Medical (four) Branch hours as needed for Nausea and Vomiting (N/V). proMETHazin 2022-0 Yes [id number] 25mg Take 1 Univers e 25 mg 5-30 tablet by ity of tablet 00:00: mouth [place] 00 every 4 Medical (four) Branch hours as needed for Nausea and Vomiting (N/V). proMETHazin 0 2022- No [id number] 25mg Take 1 Univers e 25 mg 5-30 07-13 tablet by ity of tablet 00:00: 00:00 mouth [place] 00 :00 every 4 Medical (four) Branch hours as needed for Nausea and Vomiting (N/V). metroNIDAZO 2022-0 2022- No [id number] 2000mg Take 4 Univers LE 500 mg 5-26 05-27 tablets by ity of tablet 00:00: 04:59 mouth [place] 00 :00 now for 1 Medical dose. Branch metroNIDAZO 2022-0 2022- No [id number] 2000mg Take 4 Univers LE 500 mg 5-26 05-27 tablets by ity of tablet 00:00: 04:59 mouth [place] 00 :00 now for 1 Medical dose. Branch ondansetron 2021- No 4mg 4 mg, Slow Univers (ZOFRAN 4-28 -28 IV Push, ity of (PF)) 04:00: 03:11 ONCE, 1 [place] injection 4 00 :00 dose, On Medi moiz mg Wed Branch 01/16/22 at 2300, ABHAY NaCl 0.9% 1000mL at 999 Uni vers (NS) bolus 01-17 mL/hr, ity of infusion 04:00: 03:52 1,000 mL, [place] 1,000 mL 00 :00 IV Medical Infusion, Branch ONCE, 1 dose, On 01/16/22 at 2300, ABHAY ondansetron 0 Yes [id number] 4mg Take 1 Univers 4 mg 4-27 tablet by ity of disintegrat 00:00: mouth [place] ing tablet 00 every 8 Medica l (eight) Branch hours as needed for Nausea and Vomiting (N/V). ondansetron 2021-0 Yes [id number] 4mg Take 1 Univers 4 mg 4-27 tablet by ity of disintegrat 00:00: mouth [place] ing tablet 00 every 8 Medica l (eight) Branch hours as needed for Nausea and Vomiting (N/V). ondansetron 2021-0 Yes [id number] 4mg Take 1 Univers 4 mg 4-27 tablet by ity of disintegrat 00:00: mouth [place] ing tablet 00 every 8 Medica l (eight) Branch hours as needed for Nausea and Vomiting (N/V). ondansetron 2021-0 Yes [id number] 4mg Take 1 Univers 4 mg 4-27 tablet by ity of disintegrat 00:00: mouth [place] ing tablet 00 every 8 Medica l (eight) Branch hours as needed for Nausea and Vomiting (N/V). ondansetron 2021-0 Yes [id number] 4mg Take 1 Univers 4 mg 4-27 tablet by ity of disintegrat 00:00: mouth [place] ing tablet 00 every 8 Medica l (eight) Branch hours as needed for Nausea and Vomiting (N/V). ondansetron 2021-0 Yes [id number] 4mg Take 1 Univers 4 mg 4-27 tablet by ity of disintegrat 00:00: mouth [place] ing tablet 00 every 8 Medica l (eight) Branch hours as needed for Nausea and Vomiting (N/V). ondansetron 2021-0 Yes [id number] 4mg Take 1 Univers 4 mg 4-27 tablet by ity of disintegrat 00:00: mouth [place] ing tablet 00 every 8 Medica l (eight) Branch hours as needed for Nausea and Vomiting (N/V). ondansetron Yes [id number] 4mg Take 1 Univers 4 mg 4-27 tablet by ity of disintegrat 00:00: mouth [place] ing tablet 00 every 8 Medica l (eight) Branch hours as needed for Nausea and Vomiting (N/V). ondansetron Yes [id number] 4mg Take 1 Univers 4 mg 4-27 tablet by ity of disintegrat 00:00: mouth [place] ing tablet 00 every 8 Medica l (eight) Branch hours as needed for Nausea and Vomiting (N/V). ondansetron Yes [id number] 4mg Take 1 Univers 4 mg 4-27 tablet by ity of disintegrat 00:00: mouth [place] ing tablet 00 every 8 Medica l (eight) Branch hours as needed for Nausea and Vomiting (N/V). ondansetron Yes [id number] 4mg Take 1 Univers 4 mg 4-27 tablet by ity of disintegrat 00:00: mouth [place] ing tablet 00 every 8 Medica l (eight) Branch hours as needed for Nausea and Vomiting (N/V). ondansetron Yes [id number] 4mg Take 1 Univers 4 mg 4-27 tablet by ity of disintegrat 00:00: mouth [place] ing tablet 00 every 8 Medica l (eight) Branch hours as needed for Nausea and Vomiting (N/V). ondansetron 3- No [id number] 4mg Take 1 Univers 4 mg 4-27 07-13 tablet by ity of disintegrat 00:00: 00:00 [place] tablet 00 :00 every 8 Medica l (eight) Branch hours as needed for Nausea and Vomiting (N/V). azithromyci 2020-0 Yes [id number] 250mg Take 1 Univers n 250 mg 3-28 tablet by ity of tablet 00:00: mouth [place] 00 daily. Medical Take 500 Branch mg day 1, then 250 mg days 2 to 5. azithromyci 2020-0 Yes [id number] 250mg Take 1 Univers n 250 mg 3-28 tablet by ity of tablet 00:00: mouth [place] 00 daily. Medical Take 500 Branch mg day 1, then 250 mg days 2 to 5. azithromyci Yes [id number] 250mg Take 1 Univers n 250 mg 3- tablet by ity of tablet 00:00: mouth [place] 00 daily. Medical Take 500 Branch mg day 1, then 250 mg days 2 to 5. azithromyci 2022- No [id number] 250mg Take 1 Univers n 250 mg 12-17 tablet by ity o f tablet 00:00: 00:00 mouth [place] 00 :00 daily. Medical Take 500 Branch mg day 1, then 250 mg days 2 to 5. azithromyci 2022- No [id number] 250mg Take 1 Univers n 250 mg 12-17 tablet by ity o f tablet 00:00: 00:00 mouth [place] 00 :00 daily. Medical Take 500 Branch mg day 1, then 250 mg days 2 to 5. Nitrofurant 2019- No [id number] 100mg Take 1 Univers oin&Nit. 05-04 capsule by ity of Macrocryst 00:00: 04:59 mouth 2 [place] 100 mg 00 :00 (two) Medical capsule times Branch daily for 7 days. metroNIDAZO Yes [id number] 500mg Take 1 Univers LE 500 mg 8- tablet by ity o f tablet 00:00: mouth [place] 00 every 12 Medical (twelve) Branch hours. metroNIDAZO Yes [id number] 500mg Take 1 Univers LE 500 mg 8- tablet by ity o f tablet 00:00: mouth [place] 00 every 12 Medical (twelve) Branch hours. metroNIDAZO Yes [id number] 500mg Take 1 Univers LE 500 mg 8- tablet by ity o f tablet 00:00: mouth [place] 00 every 12 Medical (twelve) Branch hours. metroNIDAZO 2019- No [id number] 500mg Take 1 Univers LE 500 mg 04-30 tablet by ity of tablet 00:00: 00:00 mouth [place] 00 :00 every 12 Medical (twelve) Branch hours. fluconazole 2018- Yes [id number] 200mg Take 1 Univers (DIFLUCAN) 8- tablet by ity of 200 mg 00:00: mouth [place] tablet 00 daily. [facility] fluconazole 2019-0 Yes [id number] 200mg Take 1 Univers (DIFLUCAN) 8-08 tablet by ity of 200 mg 00:00: mouth [place] tablet 00 daily. [facility] fluconazole 2019-0 Yes [id number] 200mg Take 1 Univers (DIFLUCAN) 8-08 tablet by ity of 200 mg 00:00: mouth [place] tablet 00 daily. [facility] fluconazole 2018-0 Yes [id number] 200mg Take 1 Univers (DIFLUCAN) 8-08 tablet by ity of 200 mg 00:00: mouth [place] tablet 00 daily. [facility] fluconazole 2018- 2019- No [id number] 200mg Take 1 [facility] (DIFLUCAN) 8-08 08-13 tablet by ity of 200 mg 00:00: 00:00 mouth [place] tablet 00 :00 daily. [facility] [id number], 0 Yes [id number] Take 1 [facility] carb,glu-FA 4-15 9106 TAB-CAP/M2 it y of -dss-dha 00:00: by mouth [place] (CITRANATAL 00 daily. [facility] AL[facility] OIL,) 27 mg iron-1 mg -50 mg-250 mg Cmpk [id number], 2018-0 Yes [id number] Take 1 [facility] carb,glu-FA 4-15 9106 TAB-CAP/M2 it y of -dss-dha 00:00: by mouth [place] (CITRANATAL 00 daily. [facility] ALGAL [facility] OIL,) 27 mg iron-1 mg -50 mg-250 mg Cmpk [id number], 2018-0 Yes [id number] Take 1 [facility] carb,glu-FA 4-15 9106 TAB-CAP/M2 it y of -dss-dha 00:00: by mouth [place] (CITRANATAL 00 daily. [facility], ALGAL [facility] OIL,) 27 mg iron-1 mg -50 mg-250 mg Cmpk [id number], 2018-0 Yes [id number] Take 1 [facility] carb,glu-FA 4-15 9106 TAB-CAP/M2 it y of -dss-dha 00:00: by mouth [place] (CITRANATAL 00 daily. [facility], ALGAL [facility] OIL,) 27 mg iron-1 mg -50 mg-250 mg Cmpk [id number], 2018-0 Yes [id number] Take 1 [facility] carb,glu-FA 4-15 9106 TAB-CAP/M2 it y of -dss-dha 00:00: by mouth [place] (CITRANATAL 00 daily. [facility], ALGAL [facility] OIL,) 27 mg iron-1 mg -50 mg-250 mg Cmpk [id number], 2018-0 Yes [id number] Take 1 [facility] carb,glu-FA 4-15 9106 TAB-CAP/M2 it y of -dss-dha 00:00: by mouth [place] (CITRANATAL 00 daily. [facility], ALGAL [facility] OIL,) 27 mg iron-1 mg -50 mg-250 mg Cmpk [id number], 2018-0 Yes [id number] Take 1 [facility] carb,glu-FA 4-15 9106 TAB-CAP/M2 it y of -dss-dha 00:00: by mouth [place] (CITRANATAL 00 daily. [facility], ALGAL [facility] OIL,) 27 mg iron-1 mg -50 mg-250 mg Cmpk [id number], 2018-0 Yes [id number] Take 1 [facility] carb,glu-FA 4-15 9106 TAB-CAP/M2 it y of -dss-dha 00:00: by mouth [place] (CITRANATAL 00 daily. [facility], [facility]GAL [facility] OIL,) 27 mg iron-1 mg -50 mg-250 mg Cmpk [id number], 2018-0 Yes [id number] Take 1 [facility] carb,glu-FA 4-15 9106 TAB-CAP/M2 it y of -dss-dha 00:00: by mouth [place] (CITRANATAL 00 daily. [facility], ALGAL [facility] OIL,) 27 mg iron-1 mg -50 mg-250 mg Cmpk [id number], 2018-0 Yes [id number] Take 1 [facility] carb,glu-FA 4-15 9106 TAB-CAP/M2 it y of -dss-dha 00:00: by mouth [place] (CITRANATAL 00 daily. [facility], ALGAL [facility] OIL,) 27 mg iron-1 mg -50 mg-250 mg Cmpk [id number], 2019-0 Yes [id number] Take 1 [facility] carb,glu-FA 4-15 9106 TAB-CAP/M2 it y of -dss-dha 00:00: by mouth [place] (CITRANATAL 00 daily. [facility], ALGAL Branch OIL,) 27 mg iron-1 mg -50 mg-250 mg Cmpk [id number], 2019-0 Yes [id number] Take 1 [facility] carb,glu-FA 4-15 9106 TAB-CAP/M2 it y of -dss-dha 00:00: by mouth [place] (CITRANATAL 00 daily. [facility], ALGAL [facility] OIL,) 27 mg iron-1 mg -50 mg-250 mg Cmpk [id number], 2019-0 Yes [id number] Take 1 [facility] carb,glu-FA 4-15 9106 TAB-CAP/M2 it y of -dss-dha 00:00: by mouth [place] (CITRANATAL 00 daily. [facility], ALGAL [facility] OIL,) 27 mg iron-1 mg -50 mg-250 mg Cmpk Immunizations Ordered Immunization Filled Date Status Comments Sour ce Name Immunization Name SARS-COV-2 COVID-19 2021-11-01 Completed [facility] VACCINE - (MODERNA) 00:00:00 [facility] SARS-COV-2 COVID-19 2021-11-01 Completed [facility] of VACCINE - (MODERNA) 00:00:00 [facility] SARS-COV-2 COVID-19 2021-11-01 Completed [facility] of VACCINE - (MODERNA) 00:00:00 [facility] SARS-COV-2 COVID-19 2021-11-01 Completed [facility] of VACCINE - (MODERNA) 00:00:00 [facility] SARS-COV-2 COVID-19 2021-11-01 Completed [facility] of VACCINE - (MODERNA) 00:00:00 [facility] SARS-COV-2 COVID-19 2021-11-01 Completed [facility] of VACCINE - (MODERNA) 00:00:00 [facility] SARS-COV-2 COVID-19 2021-11-01 Completed [facility] of VACCINE - (MODERNA) 00:00:00 [facility] SARS-COV-2 COVID-19 2021-11-01 Completed [facility] of VACCINE - (MODERNA) 00:00:00 [facility] SARS-COV-2 COVID-19 2021-11-01 Completed [facility] of VACCINE - (MODERNA) 00:00:00 [facility] SARS-COV-2 COVID-19 2021-11-01 Completed [facility] rs[facility] of VACCINE - (MODERNA) 00:00:00 [facility] SARS-COV-2 COVID-19 2021-11-01 Completed [facility]ive rsity of VACCINE - (MODERNA) 00:00:00 [facility] SARS-COV-2 COVID-19 2021-11-01 Completed [facility]ive rs[facility] of VACCINE - (MODERNA) 00:00:00 [facility] SARS-COV-2 COVID-19 2021-11-01 Completed [facility]ive rs[facility] of VACCINE - (MODERNA) 00:00:00 [facility] SARS-COV-2 COVID-19 2021-11-01 Completed [facility] rs[facility] of VACCINE - (MODERNA) 00:00:00 [facility] SARS-COV-2 COVID-19 2021-11-01 Completed [facility]ive rs[facility] of VACCINE - (MODERNA) 00:00:00 [facility] SARS-COV-2 COVID-19 2021-11-01 Completed [facility] rs[facility] of VACCINE - (MODERNA) 00:00:00 [facility] SARS-COV-2 COVID-19 2021-11-01 Completed [facility]ive rs[facility] of VACCINE - (MODERNA) 00:00:00 [facility] SARS-COV-2 COVID-19 2021-11-01 Completed [facility]ive rs[facility] of VACCINE - (MODERNA) 00:00:00 [facility] SARS-COV-2 COVID-19 2021-11-01 Completed [facility]ive rs[facility] of VACCINE - (MODERNA) 00:00:00 [facility] SARS-COV-2 COVID-19 2021-11-01 Completed [facility]ive rs[facility] of VACCINE - (MODERNA) 00:00:00 [facility] SARS-COV-2 COVID-19 2021-11-01 Completed [facility] rs[facility] of VACCINE - (MODERNA) 00:00:00 [facility] SARS-COV-2 COVID-19 2021-06-08 Completed [facility]ive rs[facility] of VACCINE - (MODERNA) 00:00:00 [facility] SARS-COV-2 COVID-19 2021-06-08 Completed [facility]ive rs[facility] of VACCINE - (MODERNA) 00:00:00 [facility] SARS-COV-2 COVID-19 2021-06-08 Completed [facility]ive rs[facility] of VACCINE - (MODERNA) 00:00:00 [facility] SARS-COV-2 COVID-19 2021-06-08 Completed [facility]ive rsity of VACCINE - (MODERNA) 00:00:00 [facility] SARS-COV-2 COVID-19 2021-06-08 Completed [facility]ive rs[facility] of VACCINE - (MODERNA) 00:00:00 [facility] SARS-COV-2 COVID-19 2021-06-08 Completed [facility] rs[facility] of VACCINE - (MODERNA) 00:00:00 [facility] SARS-COV-2 COVID-19 2021-06-08 Completed [facility] rs[facility] of VACCINE - (MODERNA) 00:00:00 [facility] SARS-COV-2 COVID-19 2021-06-08 Completed [facility] of VACCINE - (MODERNA) 00:00:00 [facility] SARS-COV-2 COVID-19 2021-06-08 Completed [facility]ive rsity of VACCINE - (MODERNA) 00:00:00 [facility] SARS-COV-2 COVID-19 2021-06-08 Completed [facility]ive rs[facility] of VACCINE - (MODERNA) 00:00:00 [facility] SARS-COV-2 COVID-19 2021-06-08 Completed [facility] rs[facility] of VACCINE - (MODERNA) 00:00:00 [facility] SARS-COV-2 COVID-19 2021-06-08 Completed [facility] rs[facility] of VACCINE - (MODERNA) 00:00:00 [facility] SARS-COV-2 COVID-19 2021-06-08 Completed [facility] rs[facility] of VACCINE - (MODERNA) 00:00:00 [facility] SARS-COV-2 COVID-19 2021-06-08 Completed [facility] rs[facility] of VACCINE - (MODERNA) 00:00:00 [facility] SARS-COV-2 COVID-19 2021-06-08 Completed [facility] rs[facility] of VACCINE - (MODERNA) 00:00:00 [facility] SARS-COV-2 COVID-19 2021-06-08 Completed [facility] rs[facility] of VACCINE - (MODERNA) 00:00:00 [facility] SARS-COV-2 COVID-19 2021-06-08 Completed [facility] rs[facility] of VACCINE - (MODERNA) 00:00:00 [facility] SARS-COV-2 COVID-19 2021-06-08 Completed [facility]ive rs[facility] of VACCINE - (MODERNA) 00:00:00 [facility] SARS-COV-2 COVID-19 2021-06-08 Completed [facility] of VACCINE - (MODERNA) 00:00:00 [facility] SARS-COV-2 COVID-19 2021-06-08 Completed [facility] rs[facility] of VACCINE - (MODERNA) 00:00:00 [facility] SARS-COV-2 COVID-19 2021-06-08 Completed [facility] of VACCINE - (MODERNA) 00:00:00 [facility] Influenza Virus 2019-06-29 Completed Universit y of Vaccine Quad .5 mL 00:00:00 [facility] 6+ MO Branch Influenza Virus 2019-06-29 Completed Universit y of Vaccine Quad .5 mL 00:00:00 [facility] 6+ MO Branch Influenza Virus 2019-06-29 Completed Universit y of Vaccine Quad .5 mL 00:00:00 [facility] 6+ MO Branch Influenza Virus 2019-06-29 Completed Universit y of Vaccine Quad .5 mL 00:00:00 [facility] 6+ MO Branch Influenza Virus 2019-06-29 Completed [facility]it y of Vaccine Quad .5 mL 00:00:00 [facility] 6+ MO Branch (FLUZONE/FLULAVAL/FL UARIX) Influenza Virus 2019-06-29 Completed [facility]it y of Vaccine Quad .5 mL 00:00:00 [facility] 6+ MO Branch (FLUZONE/FLULAVAL/FL UARIX) Influenza Virus 2019-06-29 Completed [facility]it y of Vaccine Quad .5 mL 00:00:00 [facility] 6+ MO Branch (FLUZONE/FLULAVAL/FL UARIX) Influenza Virus 2019-06-29 Completed Universit y of Vaccine Quad .5 mL 00:00:00 [facility] 6+ MO Branch (FLUZONE/FLULAVAL/FL UARIX) Influenza Virus 2019-06-29 Completed [facility]it y of Vaccine Quad .5 mL 00:00:00 [facility] 6+ MO Branch Influenza Virus 2019-06-29 Completed [facility]it y of Vaccine Quad .5 mL 00:00:00 [place] [facility] 6+ MO [facility] Influenza Virus 2019-06-29 Completed [facility]it y of Vaccine Quad .5 mL 00:00:00 [place] [facility] 6+ MO [facility] Influenza Virus 2019-06-29 Completed [facility]it y of Vaccine Quad .5 mL 00:00:00 [place] [facility] 6+ MO [facility] Influenza Virus 2019-06-29 Completed [facility]it y of Vaccine Quad .5 mL 00:00:00 [place] [facility] 6+ MO [facility] Influenza Virus 2019-06-29 Completed [facility]it y of Vaccine Quad .5 mL 00:00:00 [place] [facility] 6+ MO [facility] Influenza Virus 2019-06-29 Completed [facility] y of Vaccine Quad .5 mL 00:00:00 [place] [facility] 6+ MO [facility] Influenza Virus 2019-06-29 Completed [facility]it y of Vaccine Quad .5 mL 00:00:00 [place] [facility] 6+ MO [facility] Influenza Virus 2019-06-29 Completed [facility]it y of Vaccine Quad .5 mL 00:00:00 [place] [facility] 6+ MO [facility] Influenza Virus 2019-06-29 Completed [facility]it y of Vaccine Quad .5 mL 00:00:00 [place] [facility] 6+ MO [facility] Influenza Virus 2019-06-29 Completed [facility] y of Vaccine Quad .5 mL 00:00:00 [place] [facility] 6+ MO [facility] Influenza Virus 2019-06-29 Completed [facility]it y of Vaccine Quad .5 mL 00:00:00 [place] [facility] 6+ MO [facility] Influenza Virus 2019-06-29 Completed [facility] y of Vaccine Quad .5 mL 00:00:00 [place] [facility] 6+ MO [facility] Influenza Virus 2019-06-29 Completed [facility] y of Vaccine Quad .5 mL 00:00:00 [place] [facility] 6+ MO [facility] Influenza Virus 2019-06-29 Completed [facility]it y of Vaccine Quad .5 mL 00:00:00 [place] [facility] 6+ MO [facility] Influenza Virus 2019-06-29 Completed [facility]it y of Vaccine Quad .5 mL 00:00:00 [place] [facility] 6+ MO Branch TDAP (ADACEL) 2019-05-27 Completed [facility] of VACCINE 00:00:00 [facility] TDAP (ADACEL) 2019-05-27 Completed [facility] of VACCINE 00:00:00 [facility] TDAP (ADACEL) 2019-05-27 Completed [facility] of VACCINE 00:00:00 [facility] TDAP (ADACEL) 2019-05-27 Completed [facility] VACCINE 00:00:00 [place] [facility] TDAP (ADACEL) 2019-05-27 Completed [facility] of VACCINE 00:00:00 [place] [facility] TDAP (ADACEL) 2019-05-27 Completed [facility] of VACCINE 00:00:00 [place] [facility] TDAP (ADACEL) 2019-05-27 Completed [facility] of VACCINE 00:00:00 [place] [facility] TDAP (ADACEL) 2019-05-27 Completed [facility] of VACCINE 00:00:00 [place] [facility] TDAP (ADACEL) 2019-05-27 Completed [facility] of VACCINE 00:00:00 [place] [facility] TDAP (ADACEL) 2019-05-27 Completed [facility] of VACCINE 00:00:00 [place] [facility] TDAP (ADACEL) 2019-05-27 Completed [facility] of VACCINE 00:00:00 [facility] TDAP (ADACEL) 2019-05-27 Completed [facility] of VACCINE 00:00:00 [facility] TDAP (ADACEL) 2019-05-27 Completed University of VACCINE 00:00:00 [facility] TDAP (ADACEL) 2019-05-27 Completed [facility] of VACCINE 00:00:00 [facility] TDAP (ADACEL) 2019-05-27 Completed [facility] of VACCINE 00:00:00 [facility] TDAP (ADACEL) 2019-05-27 Completed [facility] of VACCINE 00:00:00 [place] [facility] TDAP (ADACEL) 2019-05-27 Completed [facility] of VACCINE 00:00:00 [facility] TDAP (ADACEL) 2019-05-27 Completed [facility] of VACCINE 00:00:00 [facility] TDAP (ADACEL) 2019-05-27 Completed [facility] of VACCINE 00:00:00 [place] [facility] TDAP (ADACEL) 2019-05-27 Completed [facility] of VACCINE 00:00:00 [facility] TDAP (ADACEL) 2019-05-27 Completed [facility] of VACCINE 00:00:00 [place] [facility] TDAP (ADACEL) 2019-05-27 Completed [facility] of VACCINE 00:00:00 [place] [facility] TDAP (ADACEL) 2019-05-27 Completed [facility] of VACCINE 00:00:00 [facility] TDAP (ADACEL) 2019-05-27 Completed [facility] of VACCINE 00:00:00 [place] [facility] TDAP (ADACEL) 2019-05-27 Completed [facility] of VACCINE 00:00:00 [place] [facility] TDAP (ADACEL) 2019-04-01 Completed [facility] of VACCINE 00:00:00 [facility] TDAP (ADACEL) 2019-04-01 Completed [facility] of VACCINE 00:00:00 [facility] TDAP (ADACEL) 2019-04-01 Completed [facility] of VACCINE 00:00:00 [facility] TDAP (ADACEL) 2019-04-01 Completed [facility] of VACCINE 00:00:00 [facility] TDAP (ADACEL) 2019-04-01 Completed [facility] of VACCINE 00:00:00 [facility] TDAP (ADACEL) 2019-04-01 Completed [facility] of VACCINE 00:00:00 [facility] TDAP (ADACEL) 2019-04-01 Completed [facility] of VACCINE 00:00:00 [facility] TDAP (ADACEL) 2019-04-01 Completed [facility] of VACCINE 00:00:00 [facility] TDAP (ADACEL) 2019-04-01 Completed [facility] of VACCINE 00:00:00 [facility] TDAP (ADACEL) 2019-04-01 Completed [facility] of VACCINE 00:00:00 [facility] TDAP (ADACEL) 2019-04-01 Completed [facility] of VACCINE 00:00:00 [facility] TDAP (ADACEL) 2019-04-01 Completed [facility] of VACCINE 00:00:00 [facility] TDAP (ADACEL) 2019-04-01 Completed [facility] of VACCINE 00:00:00 [facility] TDAP (ADACEL) 2019-04-01 Completed [facility] of VACCINE 00:00:00 [facility] TDAP (ADACEL) 2019-04-01 Completed [facility] of VACCINE 00:00:00 [facility] TDAP (ADACEL) 2019-04-01 Completed [facility] of VACCINE 00:00:00 [facility] TDAP (ADACEL) 2019-04-01 Completed [facility] of VACCINE 00:00:00 [facility] TDAP (ADACEL) 2019-04-01 Completed [facility] of VACCINE 00:00:00 [facility] TDAP (ADACEL) 2019-04-01 Completed [facility] of VACCINE 00:00:00 [facility] TDAP (ADACEL) 2019-04-01 Completed [facility] of VACCINE 00:00:00 [facility] TDAP (ADACEL) 2019-04-01 Completed [facility] of VACCINE 00:00:00 [facility] TDAP (ADACEL) 2019-04-01 Completed [facility] of VACCINE 00:00:00 [facility] TDAP (ADACEL) 2019-04-01 Completed [facility] of VACCINE 00:00:00 [facility] TDAP (ADACEL) 2019-04-01 Completed [facility] of VACCINE 00:00:00 [facility] TDAP (ADACEL) 2019-04-01 Completed [facility] of VACCINE 00:00:00 [facility] TDAP (ADACEL) 2019-04-01 Completed [facility] of VACCINE 00:00:00 [facility] TDAP (ADACEL) 2019-04-01 Completed [facility] of VACCINE 00:00:00 [facility] TDAP (ADACEL) 2019-04-01 Completed [facility] of VACCINE 00:00:00 [facility] TDAP (ADACEL) 2019-04-01 Completed [facility] of VACCINE 00:00:00 [facility] TDAP (ADACEL) 2019-04-01 Completed [facility] of VACCINE 00:00:00 [facility] TDAP (ADACEL) 2019-04-01 Completed [facility] of VACCINE 00:00:00 [facility] TDAP (ADACEL) 2019-04-01 Completed [facility] of VACCINE 00:00:00 [facility] TDAP (ADACEL) 2019-04-01 Completed [facility] of VACCINE 00:00:00 [facility] TDAP (ADACEL) 2019-04-01 Completed [facility] of VACCINE 00:00:00 [facility] TDAP (ADACEL) 2019-04-01 Completed [facility] of VACCINE 00:00:00 [facility] TDAP (ADACEL) 2019-04-01 Completed [facility] of VACCINE 00:00:00 [facility] TDAP (ADACEL) 2019-04-01 Completed [facility] of VACCINE 00:00:00 [facility] Influenza Virus 2019-01-04 Completed [facility]it y of Vaccine Quad .5 mL 00:00:00 [facility] 6+ MO Branch Influenza Virus 2019-01-04 Completed [facility] y of Vaccine Quad .5 mL 00:00:00 [facility] 6[facility] MO [facility] Influenza Virus 2019-01-04 Completed [facility]it y of Vaccine Quad .5 mL 00:00:00 [facility] 6+ MO Branch Influenza Virus 2019-01-04 Completed [facility]it y of Vaccine Quad .5 mL 00:00:00 [facility] 6+ MO Branch (FLUZONE/FLULAVAL/FL UARIX) Influenza Virus 2019-01-04 Completed [facility] y of Vaccine Quad .5 mL 00:00:00 [place] [facility] 6[facility] MO [facility] (FLUZONE/FLULAVAL/FL UARIX) Influenza Virus 2019-01-04 Completed [facility] y of Vaccine Quad .5 mL 00:00:00 [place] [facility] 6[facility] MO [facility] (FLUZONE/FLULAVAL/FL UARIX) Influenza Virus 2019-01-04 Completed [facility] y of Vaccine Quad .5 mL 00:00:00 [place] [facility] 6[facility] MO [facility] (FLUZONE/FLULAVAL/FL UARIX) Influenza Virus 2019-01-04 Completed [facility] y of Vaccine Quad .5 mL 00:00:00 [place] [facility] 6+ MO [facility] Influenza Virus 2019-01-04 Completed [facility] y of Vaccine Quad .5 mL 00:00:00 [place] [facility] 6[facility] MO [facility] Influenza Virus 2019-01-04 Completed [facility] y of Vaccine Quad .5 mL 00:00:00 [facility] 6+ MO [facility] Influenza Virus 2019-01-04 Completed [facility] y of Vaccine Quad .5 mL 00:00:00 [facility] 6[facility] MO [facility] Influenza Virus 2019-01-04 Completed [facility] of Vaccine Quad .5 mL 00:00:00 [facility] 6+ MO [facility] Influenza Virus 2019-01-04 Completed [facility] y of Vaccine Quad .5 mL 00:00:00 [facility] 6[facility] MO [facility] Influenza Virus 2019-01-04 Completed [facility] of Vaccine Quad .5 mL 00:00:00 [facility] 6+ MO [facility] Influenza Virus 2019-01-04 Completed [facility] of Vaccine Quad .5 mL 00:00:00 [place] [facility] 6[facility] MO [facility] Influenza Virus 2019-01-04 Completed [facility] of Vaccine Quad .5 mL 00:00:00 [place] [facility] 6[facility] MO [facility] Influenza Virus 2019-01-04 Completed [facility] of Vaccine Quad .5 mL 00:00:00 [facility] 6[facility] MO [facility] Influenza Virus 2019-01-04 Completed [facility] of Vaccine Quad .5 mL 00:00:00 [place] [facility] 6[facility] MO [facility] Influenza Virus 2019-01-04 Completed [facility] of Vaccine Quad .5 mL 00:00:00 [facility] 6+ MO [facility] Influenza Virus 2019-01-04 Completed [facility] of Vaccine Quad .5 mL 00:00:00 [place] [facility] 6[facility] MO [facility] Influenza Virus 2019-01-04 Completed [facility] of Vaccine Quad .5 mL 00:00:00 [facility] 6+ MO [facility] Influenza Virus 2019-01-04 Completed [facility] of Vaccine Quad .5 mL 00:00:00 [facility] 6[facility] MO [facility] Influenza Virus 2019-01-04 Completed [facility] of Vaccine Quad .5 mL 00:00:00 [facility] 6[facility] MO [facility] Influenza Virus 2019-01-04 Completed [facility] of Vaccine Quad .5 mL 00:00:00 [facility] 6[facility] MO [facility] Influenza Virus 2019-01-04 Completed [facility] of Vaccine Quad .5 mL 00:00:00 [facility] 6[facility] MO [facility] Influenza Virus 2019-01-04 Completed [facility] of Vaccine Quad .5 mL 00:00:00 [facility] 6[facility] MO [facility] Influenza Virus 2019-01-04 Completed [facility] of Vaccine Quad .5 mL 00:00:00 [facility] 6+ MO [facility] Influenza Virus 2019-01-04 Completed [facility] y of Vaccine Quad .5 mL 00:00:00 [facility] 6+ MO [facility] Influenza Virus 2019-01-04 Completed [facility] y of Vaccine Quad .5 mL 00:00:00 [facility] 6+ MO [facility] Influenza Virus 2019-01-04 Completed [facility] y of Vaccine Quad .5 mL 00:00:00 [facility] 6+ MO [facility] Influenza Virus 2019-01-04 Completed [facility] y of Vaccine Quad .5 mL 00:00:00 [facility] 6+ MO [facility] Influenza Virus 2019-01-04 Completed [facility] of Vaccine Quad .5 mL 00:00:00 [facility] 6+ MO [facility] Influenza Virus 2019-01-04 Completed [facility] of Vaccine Quad .5 mL 00:00:00 [facility] 6+ MO [facility] Influenza Virus 2019-01-04 Completed [facility] of Vaccine Quad .5 mL 00:00:00 [facility] 6+ MO [facility] Influenza Virus 2019-01-04 Completed [facility] of Vaccine Quad .5 mL 00:00:00 [facility] 6+ MO [facility] Influenza Virus 2019-01-04 Completed [facility] of Vaccine Quad .5 mL 00:00:00 [facility] 6+ MO [facility] Influenza Virus 2019-01-04 Completed [facility] y of Vaccine Quad .5 mL 00:00:00 [facility] 6+ MO Branch HPV 2015-04-13 Completed University of 00:00:00 [facility] Meningococcal 2015-04-13 Completed [facility] of Polysaccharide 00:00:00 [place] [facility] (groups A, C, Y and Branc h W-135) conjugate vaccine (MCV4P) TDAP (ADACEL) 2015-04-13 Completed [facility] of VACCINE 00:00:00 [facility] HPV 2015-04-13 Completed University of 00:00:00 [facility] Meningococcal 2015-04-13 Completed [facility] of Polysaccharide 00:00:00 [place] [facility] (groups A, C, Y and Branc h W-135) conjugate vaccine (MCV4P) TDAP (ADACEL) 2015-04-13 Completed [facility] of VACCINE 00:00:00 [facility] HPV 2015-04-13 Completed [facility] of 00:00:00 [facility] HPV 2015-04-13 Completed [facility] of 00:00:00 [facility] Meningococcal 2015-04-13 Completed [facility] of Polysaccharide 00:00:00 [place] [facility] (groups A, C, Y and Branc h W-135) conjugate vaccine (MCV4P) TDAP (ADACEL) 2015-04-13 Completed [facility] of VACCINE 00:00:00 [facility] Meningococcal 2015-04-13 Completed [facility] of Polysaccharide 00:00:00 [place] [facility] (groups A, C, Y and Branc h W-135) conjugate vaccine (MCV4P) TDAP (ADACEL) 2015-04-13 Completed [facility] of VACCINE 00:00:00 [facility] HPV 2015-04-13 Completed [facility] of 00:00:00 [facility] Meningococcal 2015-04-13 Completed [facility] of Polysaccharide 00:00:00 [place] [facility] (groups A, C, Y and Branc h W-135) conjugate vaccine (MCV4P) TDAP (ADACEL) 2015-04-13 Completed [facility] of VACCINE 00:00:00 [facility] HPV 2015-04-13 Completed [facility] of 00:00:00 [facility] Meningococcal 2015-04-13 Completed [facility] of Polysaccharide 00:00:00 [place] [facility] (groups A, C, Y and Branc h W-135) conjugate vaccine (MCV4P) TDAP (ADACEL) 2015-04-13 Completed [facility] of VACCINE 00:00:00 [facility] HPV 2015-04-13 Completed [facility] of 00:00:00 [facility] Meningococcal 2015-04-13 Completed [facility] of Polysaccharide 00:00:00 [place] [facility] (groups A, C, Y and Branc h W-135) conjugate vaccine (MCV4P) TDAP (ADACEL) 2015-04-13 Completed [facility] of VACCINE 00:00:00 [facility] HPV 2015-04-13 Completed [facility] of 00:00:00 [facility] Meningococcal 2015-04-13 Completed [facility] of Polysaccharide 00:00:00 [place] [facility] (groups A, C, Y and Branc h W-135) conjugate vaccine (MCV4P) TDAP (ADACEL) 2015-04-13 Completed [facility] of VACCINE 00:00:00 [facility] HPV 2015-04-13 Completed [facility] of 00:00:00 [facility] Meningococcal 2015-04-13 Completed [facility] Polysaccharide 00:00:00 [place] [facility] (groups A, C, Y and Branc h W-135) conjugate vaccine (MCV4P) TDAP (ADACEL) 2015-04-13 Completed [facility] of VACCINE 00:00:00 [facility] HPV 2015-04-13 Completed [facility] of 00:00:00 [facility] Meningococcal 2015-04-13 Completed [facility] of Polysaccharide 00:00:00 [place] [facility] (groups A, C, Y and Branc h W-135) conjugate vaccine (MCV4P) TDAP (ADACEL) 2015-04-13 Completed [facility] of VACCINE 00:00:00 [facility] HPV 2015-04-13 Completed University of 00:00:00 [facility] Meningococcal 2015-04-13 Completed University of Polysaccharide 00:00:00 [facility] (groups A, C, Y and Branc h W-135) conjugate vaccine (MCV4P) TDAP (ADACEL) 2015-04-13 Completed [facility] VACCINE 00:00:00 [facility] HPV 2015-04-13 Completed [facility] 00:00:00 [facility] Meningococcal 2015-04-13 Completed [facility] Polysaccharide 00:00:00 [facility] (groups A, C, Y and Branc h W-135) conjugate vaccine (MCV4P) TDAP (ADACEL) 2015-04-13 Completed [facility] VACCINE 00:00:00 [facility] HPV 2015-04-13 Completed [facility] 00:00:00 [facility] Meningococcal 2015-04-13 Completed [facility] Polysaccharide 00:00:00 [facility] (groups A, C, Y and Branc h W-135) conjugate vaccine (MCV4P) TDAP (ADACEL) 2015-04-13 Completed [facility] VACCINE 00:00:00 [facility] HPV 2015-04-13 Completed [facility] 00:00:00 [facility] Meningococcal 2015-04-13 Completed [facility] Polysaccharide 00:00:00 [facility] (groups A, C, Y and Branc h W-135) conjugate vaccine (MCV4P) TDAP (ADACEL) 2015-04-13 Completed [facility] VACCINE 00:00:00 [facility] HPV 2015-04-13 Completed [facility] 00:00:00 [facility] Meningococcal 2015-04-13 Completed [facility] Polysaccharide 00:00:00 [facility] (groups A, C, Y and Branc h W-135) conjugate vaccine (MCV4P) TDAP (ADACEL) 2015-04-13 Completed [facility] VACCINE 00:00:00 [facility] HPV 2015-04-13 Completed [facility] 00:00:00 [facility] Meningococcal 2015-04-13 Completed [facility] Polysaccharide 00:00:00 [facility] (groups A, C, Y and Branc h W-135) conjugate vaccine (MCV4P) TDAP (ADACEL) 2015-04-13 Completed [facility] VACCINE 00:00:00 [facility] HPV 2015-04-13 Completed [facility] 00:00:00 [facility] Meningococcal 2015-04-13 Completed [facility] Polysaccharide 00:00:00 [facility] (groups A, C, Y and Branc h W-135) conjugate vaccine (MCV4P) TDAP (ADACEL) 2015-04-13 Completed [facility] VACCINE 00:00:00 [facility] HPV 2015-04-13 Completed [facility] 00:00:00 [facility] Meningococcal 2015-04-13 Completed [facility] Polysaccharide 00:00:00 [facility] (groups A, C, Y and Branc h W-135) conjugate vaccine (MCV4P) TDAP (ADACEL) 2015-04-13 Completed [facility] VACCINE 00:00:00 [facility] HPV 2015-04-13 Completed [facility] 00:00:00 [facility] Meningococcal 2015-04-13 Completed [facility] Polysaccharide 00:00:00 [facility] (groups A, C, Y and Branc h W-135) conjugate vaccine (MCV4P) HPV 2015-04-13 Completed [facility] 00:00:00 [facility] Meningococcal 2015-04-13 Completed [facility] Polysaccharide 00:00:00 [facility] (groups A, C, Y and Branc h W-135) conjugate vaccine (MCV4P) TDAP (ADACEL) 2015-04-13 Completed [facility] VACCINE 00:00:00 [facility] TDAP (ADACEL) 2015-04-13 Completed [facility] VACCINE 00:00:00 [facility] HPV 2015-04-13 Completed [facility] 00:00:00 [facility] Meningococcal 2015-04-13 Completed [facility] Polysaccharide 00:00:00 [facility] (groups A, C, Y and Branc h W-135) conjugate vaccine (MCV4P) TDAP (ADACEL) 2015-04-13 Completed [facility] VACCINE 00:00:00 [facility] HPV 2015-04-13 Completed [facility] 00:00:00 [facility] Meningococcal 2015-04-13 Completed [facility] Polysaccharide 00:00:00 [facility] (groups A, C, Y and Branc h W-135) conjugate vaccine (MCV4P) TDAP (ADACEL) 2015-04-13 Completed [facility] VACCINE 00:00:00 [facility] HPV 2015-04-13 Completed [facility] 00:00:00 [facility] Meningococcal 2015-04-13 Completed [facility] Polysaccharide 00:00:00 [facility] (groups A, C, Y and Branc h W-135) conjugate vaccine (MCV4P) TDAP (ADACEL) 2015-04-13 Completed [facility] VACCINE 00:00:00 [facility] HPV 2015-04-13 Completed [facility] 00:00:00 [facility] Meningococcal 2015-04-13 Completed [facility] Polysaccharide 00:00:00 [facility] (groups A, C, Y and Branc h W-135) conjugate vaccine (MCV4P) TDAP (ADACEL) 2015-04-13 Completed [facility] VACCINE 00:00:00 [facility] HPV 2015-04-13 Completed [facility] 00:00:00 [facility] Meningococcal 2015-04-13 Completed [facility] Polysaccharide 00:00:00 [facility] (groups A, C, Y and Branc h W-135) conjugate vaccine (MCV4P) TDAP (ADACEL) 2015-04-13 Completed [facility] VACCINE 00:00:00 [facility] HPV 2015-04-13 Completed [facility] 00:00:00 [facility] Meningococcal 2015-04-13 Completed [facility] Polysaccharide 00:00:00 [facility] (groups A, C, Y and Branc h W-135) conjugate vaccine (MCV4P) TDAP (ADACEL) 2015-04-13 Completed [facility] VACCINE 00:00:00 [facility] HPV 2015-04-13 Completed [facility] 00:00:00 [facility] Meningococcal 2015-04-13 Completed [facility] Polysaccharide 00:00:00 [facility] (groups A, C, Y and Branc h W-135) conjugate vaccine (MCV4P) TDAP (ADACEL) 2015-04-13 Completed [facility] VACCINE 00:00:00 [facility] HPV 2015-04-13 Completed [facility] 00:00:00 [facility] Meningococcal 2015-04-13 Completed [facility] Polysaccharide 00:00:00 [facility] (groups A, C, Y and Branc h W-135) conjugate vaccine (MCV4P) HPV 2015-04-13 Completed [facility] 00:00:00 [facility] Meningococcal 2015-04-13 Completed [facility] Polysaccharide 00:00:00 [facility] (groups A, C, Y and Branc h W-135) conjugate vaccine (MCV4P) TDAP (ADACEL) 2015-04-13 Completed [facility] VACCINE 00:00:00 [facility] TDAP (ADACEL) 2015-04-13 Completed [facility] VACCINE 00:00:00 [facility] HPV 2015-04-13 Completed [facility] 00:00:00 [facility] Meningococcal 2015-04-13 Completed [facility] Polysaccharide 00:00:00 [facility] (groups A, C, Y and Branc h W-135) conjugate vaccine (MCV4P) TDAP (ADACEL) 2015-04-13 Completed [facility] VACCINE 00:00:00 [facility] HPV 2015-04-13 Completed [facility] 00:00:00 [facility] Meningococcal 2015-04-13 Completed [facility] Polysaccharide 00:00:00 [facility] (groups A, C, Y and Branc h W-135) conjugate vaccine (MCV4P) TDAP (ADACEL) 2015-04-13 Completed [facility] VACCINE 00:00:00 [facility] HPV 2015-04-13 Completed [facility] 00:00:00 [facility] Meningococcal 2015-04-13 Completed [facility] Polysaccharide 00:00:00 [facility] (groups A, C, Y and Branc h W-135) conjugate vaccine (MCV4P) TDAP (ADACEL) 2015-04-13 Completed [facility] VACCINE 00:00:00 [facility] HPV 2015-04-13 Completed [facility] 00:00:00 [facility] Meningococcal 2015-04-13 Completed [facility] Polysaccharide 00:00:00 [facility] (groups A, C, Y and Branc h W-135) conjugate vaccine (MCV4P) TDAP (ADACEL) 2015-04-13 Completed [facility] VACCINE 00:00:00 [facility] HPV 2015-04-13 Completed [facility] 00:00:00 [facility] Meningococcal 2015-04-13 Completed [facility] Polysaccharide 00:00:00 [facility] (groups A, C, Y and Branc h W-135) conjugate vaccine (MCV4P) TDAP (ADACEL) 2015-04-13 Completed [facility] VACCINE 00:00:00 [facility] HPV 2015-04-13 Completed [facility] 00:00:00 [facility] Meningococcal 2015-04-13 Completed [facility] Polysaccharide 00:00:00 [facility] (groups A, C, Y and Branc h W-135) conjugate vaccine (MCV4P) TDAP (ADACEL) 2015-04-13 Completed [facility] VACCINE 00:00:00 [facility] HPV 2015-04-13 Completed [facility] 00:00:00 [facility] Meningococcal 2015-04-13 Completed [facility] Polysaccharide 00:00:00 [facility] (groups A, C, Y and Branc h W-135) conjugate vaccine (MCV4P) TDAP (ADACEL) 2015-04-13 Completed [facility] VACCINE 00:00:00 [facility] HPV 2015-04-13 Completed [facility] 00:00:00 [facility] Meningococcal 2015-04-13 Completed [facility] Polysaccharide 00:00:00 [facility] (groups A, C, Y and Branc h W-135) conjugate vaccine (MCV4P) TDAP (ADACEL) 2015-04-13 Completed [facility] VACCINE 00:00:00 [facility] HPV 2012-06-29 Completed [facility] 00:00:00 [facility] HPV 2012-06-29 Completed [facility] 00:00:00 [facility] HPV 2012-06-29 Completed [facility] 00:00:00 [facility] HPV 2012-06-29 Completed [facility] 00:00:00 [facility] HPV 2012-06-29 Completed [facility] 00:00:00 [facility] HPV 2012-06-29 Completed [facility] 00:00:00 [facility] HPV 2012-06-29 Completed [facility] 00:00:00 [facility] HPV 2012-06-29 Completed [facility] 00:00:00 [facility] HPV 2012-06-29 Completed [facility] 00:00:00 [facility] HPV 2012-06-29 Completed [facility] 00:00:00 [facility] HPV 2012-06-29 Completed [facility] 00:00:00 [facility] HPV 2012-06-29 Completed [facility] 00:00:00 [facility] HPV 2012-06-29 Completed [facility] 00:00:00 [facility] HPV 2012-06-29 Completed [facility] 00:00:00 [facility] HPV 2012-06-29 Completed [facility] 00:00:00 [facility] HPV 2012-06-29 Completed [facility] 00:00:00 [facility] HPV 2012-06-29 Completed [facility] 00:00:00 [facility] HPV 2012-06-29 Completed [facility] 00:00:00 [facility] HPV 2012-06-29 Completed [facility] 00:00:00 [facility] HPV 2012-06-29 Completed [facility] 00:00:00 [facility] HPV 2012-06-29 Completed [facility] 00:00:00 [facility] HPV 2012-06-29 Completed [facility] 00:00:00 [facility] HPV 2012-06-29 Completed [facility] 00:00:00 [facility] HPV 2012-06-29 Completed [facility] 00:00:00 [facility] Tetanus/Diptheria 2009-12-12 Completed [facility] 00:00:00 [facility] Meningococcal 2009-12-12 Completed [facility] Polysaccharide 00:00:00 [facility] (groups A, C, Y and Branc h W-135) conjugate vaccine (MCV4P) Varicella 2009-12-12 Completed [facility] (varivax)(chicken 00:00:00 [facility] pox) [facility] HEPATITIS A 2009-12-12 Completed [facility] 00:00:00 [facility] Tetanus/Diptheria 2009-12-12 Completed Univers [facility] of 00:00:00 [facility] Meningococcal 2009-12-12 Completed [facility] Polysaccharide 00:00:00 [facility] (groups A, C, Y and Branc h W-135) conjugate vaccine (MCV4P) Varicella 2009-12-12 Completed [facility] (varivax)(chicken 00:00:00 [facility] pox) [facility] HEPATITIS A 2009-12-12 Completed [facility] 00:00:00 [facility] Tetanus/Diptheria 2009-12-12 Completed [facility] of 00:00:00 [facility] Meningococcal 2009-12-12 Completed [facility] Polysaccharide 00:00:00 [facility] moiz (groups A, C, Y and Branc h W-135) conjugate vaccine (MCV4P) Varicella 2009-12-12 Completed [facility] (varivax)(chicken 00:00:00 [facility] pox) [facility] HEPATITIS A 2009-12-12 Completed [facility] 00:00:00 [facility] Tetanus/Diptheria 2009-12-12 Completed [facility] of 00:00:00 [facility] Meningococcal 2009-12-12 Completed [facility] Polysaccharide 00:00:00 [facility] moiz (groups A, C, Y and Branc h W-135) conjugate vaccine (MCV4P) Varicella 2009-12-12 Completed [facility] (varivax)(chicken 00:00:00 [facility] pox) Branch HEPATITIS A 2009-12-12 Completed [facility] 00:00:00 [facility] Tetanus/Diptheria 2009-12-12 Completed [facility] of 00:00:00 [facility] Meningococcal 2009-12-12 Completed [facility] Polysaccharide 00:00:00 [facility] moiz (groups A, C, Y and Branc h W-135) conjugate vaccine (MCV4P) Varicella 2009-12-12 Completed [facility] (varivax)(chicken 00:00:00 [facility] pox) Branch HEPATITIS A 2009-12-12 Completed [facility] 00:00:00 [facility] Tetanus/Diptheria 2009-12-12 Completed Univers [facility] of 00:00:00 [facility] Meningococcal 2009-12-12 Completed [facility] Polysaccharide 00:00:00 [facility] moiz (groups A, C, Y and Branc h W-135) conjugate vaccine (MCV4P) Varicella 2009-12-12 Completed [facility] (varivax)(chicken 00:00:00 [facility] pox) Branch HEPATITIS A 2009-12-12 Completed [facility] 00:00:00 [facility] Tetanus/Diptheria 2009-12-12 Completed [facility] 00:00:00 [facility] Meningococcal 2009-12-12 Completed [facility] Polysaccharide 00:00:00 [facility] (groups A, C, Y and Branc h W-135) conjugate vaccine (MCV4P) Varicella 2009-12-12 Completed [facility] (varivax)(chicken 00:00:00 [facility] pox) Branch HEPATITIS A 2009-12-12 Completed [facility] 00:00:00 [facility] Tetanus/Diptheria 2009-12-12 Completed [facility] of 00:00:00 [facility] Meningococcal 2009-12-12 Completed [facility] Polysaccharide 00:00:00 [facility] (groups A, C, Y and Branc h W-135) conjugate vaccine (MCV4P) Varicella 2009-12-12 Completed [facility] (varivax)(chicken 00:00:00 [facility] pox) Branch HEPATITIS A 2009-12-12 Completed [facility] 00:00:00 [facility] Tetanus/Diptheria 2009-12-12 Completed [facility] of 00:00:00 [facility] Meningococcal 2009-12-12 Completed [facility] Polysaccharide 00:00:00 [facility] (groups A, C, Y and Branc h W-135) conjugate vaccine (MCV4P) Varicella 2009-12-12 Completed [facility] (varivax)(chicken 00:00:00 [facility] pox) Branch Meningococcal 2009-12-12 Completed [facility] Polysaccharide 00:00:00 [facility] (groups A, C, Y and Branc h W-135) conjugate vaccine (MCV4P) Varicella 2009-12-12 Completed [facility] (varivax)(chicken 00:00:00 [facility] pox) Branch Meningococcal 2009-12-12 Completed [facility] Polysaccharide 00:00:00 [facility] (groups A, C, Y and Branc h W-135) conjugate vaccine (MCV4P) Varicella 2009-12-12 Completed [facility] (varivax)(chicken 00:00:00 [facility] pox) [facility] Meningococcal 2009-12-12 Completed [facility] Polysaccharide 00:00:00 [facility] (groups A, C, Y and Branc h W-135) conjugate vaccine (MCV4P) Varicella 2009-12-12 Completed [facility] (varivax)(chicken 00:00:00 [facility] pox) Branch HEPATITIS A 2009-12-12 Completed [facility] 00:00:00 [facility] Tetanus/Diptheria 2009-12-12 Completed [facility] of 00:00:00 [facility] Meningococcal 2009-12-12 Completed [facility] Polysaccharide 00:00:00 [facility] (groups A, C, Y and Branc h W-135) conjugate vaccine (MCV4P) Varicella 2009-12-12 Completed [facility] (varivax)(chicken 00:00:00 [facility] pox) Branch HEPATITIS A 2009-12-12 Completed [facility] 00:00:00 [facility] Tetanus/Diptheria 2009-12-12 Completed [facility] 00:00:00 [facility] Meningococcal 2009-12-12 Completed [facility] Polysaccharide 00:00:00 [facility] (groups A, C, Y and Branc h W-135) conjugate vaccine (MCV4P) Varicella 2009-12-12 Completed [facility] (varivax)(chicken 00:00:00 [facility] pox) Branch HEPATITIS A 2009-12-12 Completed [facility] 00:00:00 [facility] Tetanus/Diptheria 2009-12-12 Completed [facility] 00:00:00 [facility] Meningococcal 2009-12-12 Completed [facility] Polysaccharide 00:00:00 [facility] moiz (groups A, C, Y and Branc h W-135) conjugate vaccine (MCV4P) Varicella 2009-12-12 Completed [facility] (varivax)(chicken 00:00:00 [place] [facility] pox) Branch HEPATITIS A 2009-12-12 Completed [facility] 00:00:00 [facility] Tetanus/Diptheria 2009-12-12 Completed [facility] 00:00:00 [facility] Meningococcal 2009-12-12 Completed [facility] Polysaccharide 00:00:00 [facility] moiz (groups A, C, Y and Branc h W-135) conjugate vaccine (MCV4P) Varicella 2009-12-12 Completed [facility] (varivax)(chicken 00:00:00 [facility] pox) Branch HEPATITIS A 2009-12-12 Completed [facility] 00:00:00 [facility] Tetanus/Diptheria 2009-12-12 Completed [facility] 00:00:00 [facility] Meningococcal 2009-12-12 Completed [facility] Polysaccharide 00:00:00 [facility] moiz (groups A, C, Y and Branc h W-135) conjugate vaccine (MCV4P) Varicella 2009-12-12 Completed [facility] (varivax)(chicken 00:00:00 [place] [facility] pox) Branch HEPATITIS A 2009-12-12 Completed [facility] 00:00:00 [facility] Tetanus/Diptheria 2009-12-12 Completed [facility] 00:00:00 [facility] Meningococcal 2009-12-12 Completed [facility] Polysaccharide 00:00:00 [facility] (groups A, C, Y and Branc h W-135) conjugate vaccine (MCV4P) Varicella 2009-12-12 Completed [facility] (varivax)(chicken 00:00:00 [facility] pox) Branch HEPATITIS A 2009-12-12 Completed [facility] 00:00:00 [facility] Tetanus/Diptheria 2009-12-12 Completed [facility] 00:00:00 [facility] Meningococcal 2009-12-12 Completed [facility] Polysaccharide 00:00:00 [facility] (groups A, C, Y and Branc h W-135) conjugate vaccine (MCV4P) Varicella 2009-12-12 Completed [facility] (varivax)(chicken 00:00:00 [facility] pox) Branch HEPATITIS A 2009-12-12 Completed [facility] 00:00:00 [facility] Tetanus/Diptheria 2009-12-12 Completed [facility] 00:00:00 [facility] Meningococcal 2009-12-12 Completed [facility] Polysaccharide 00:00:00 [facility] (groups A, C, Y and Branc h W-135) conjugate vaccine (MCV4P) Varicella 2009-12-12 Completed [facility] (varivax)(chicken 00:00:00 [facility] pox) Branch HEPATITIS A 2009-12-12 Completed [facility] 00:00:00 [facility] Tetanus/Diptheria 2009-12-12 Completed [facility] 00:00:00 [facility] Meningococcal 2009-12-12 Completed [facility] Polysaccharide 00:00:00 [facility] (groups A, C, Y and Branc h W-135) conjugate vaccine (MCV4P) Varicella 2009-12-12 Completed [facility] (varivax)(chicken 00:00:00 [facility] pox) Branch HEPATITIS A 2009-12-12 Completed [facility] 00:00:00 [facility] Tetanus/Diptheria 2009-12-12 Completed [facility] 00:00:00 [facility] Meningococcal 2009-12-12 Completed [facility] Polysaccharide 00:00:00 [facility] (groups A, C, Y and Branc h W-135) conjugate vaccine (MCV4P) Varicella 2009-12-12 Completed [facility] (varivax)(chicken 00:00:00 [facility] pox) Branch HEPATITIS A 2009-12-12 Completed [facility] 00:00:00 [facility] Tetanus/Diptheria 2009-12-12 Completed [facility] 00:00:00 [facility] Meningococcal 2009-12-12 Completed [facility] Polysaccharide 00:00:00 [facility] (groups A, C, Y and Branc h W-135) conjugate vaccine (MCV4P) Varicella 2009-12-12 Completed [facility] (varivax)(chicken 00:00:00 [facility] pox) Branch HEPATITIS A 2009-12-12 Completed [facility] 00:00:00 [facility] Tetanus/Diptheria 2009-12-12 Completed [facility] 00:00:00 [facility] Meningococcal 2009-12-12 Completed [facility] Polysaccharide 00:00:00 [facility] moiz (groups A, C, Y and Branc h W-135) conjugate vaccine (MCV4P) Varicella 2009-12-12 Completed [facility] (varivax)(chicken 00:00:00 [facility] pox) [facility] HEPATITIS A 2009-12-12 Completed [facility] 00:00:00 [facility] DTaP, Unspecified 2003-04-28 Completed [facility] Formulation 00:00:00 [facility] MMR 2003-04-28 Completed [facility] 00:00:00 [facility] IPV 2003-04-28 Completed [facility] 00:00:00 [facility] DTaP, Unspecified 2003-04-28 Completed [facility] Formulation 00:00:00 [facility] MMR 2003-04-28 Completed [facility] 00:00:00 [facility] IPV 2003-04-28 Completed [facility] 00:00:00 [facility] DTaP, Unspecified 2003-04-28 Completed [facility] Formulation 00:00:00 [facility] MMR 2003-04-28 Completed [facility] 00:00:00 [facility] IPV 2003-04-28 Completed [facility] 00:00:00 [facility] DTaP, Unspecified 2003-04-28 Completed [facility] Formulation 00:00:00 [facility] MMR 2003-04-28 Completed [facility] 00:00:00 [facility] IPV 2003-04-28 Completed [facility] 00:00:00 [facility] DTaP, Unspecified 2003-04-28 Completed [facility] Formulation 00:00:00 [facility] MMR 2003-04-28 Completed [facility] 00:00:00 [facility] IPV 2003-04-28 Completed [facility] 00:00:00 [facility] DTaP, Unspecified 2003-04-28 Completed [facility] Formulation 00:00:00 [facility] MMR 2003-04-28 Completed [facility] 00:00:00 [facility] IPV 2003-04-28 Completed [facility] 00:00:00 [facility] DTaP, Unspecified 2003-04-28 Completed [facility] Formulation 00:00:00 [facility] MMR 2003-04-28 Completed [facility] 00:00:00 [facility] IPV 2003-04-28 Completed [facility] 00:00:00 [facility] DTaP, Unspecified 2003-04-28 Completed [facility] Formulation 00:00:00 [facility] MMR 2003-04-28 Completed [facility] 00:00:00 [facility] IPV 2003-04-28 Completed [facility] 00:00:00 [facility] DTaP, Unspecified 2003-04-28 Completed [facility] Formulation 00:00:00 [facility] MMR 2003-04-28 Completed [facility] 00:00:00 [facility] IPV 2003-04-28 Completed [facility] 00:00:00 [facility] DTaP, Unspecified 2003-04-28 Completed [facility] Formulation 00:00:00 [facility] MMR 2003-04-28 Completed [facility] 00:00:00 [facility] IPV 2003-04-28 Completed [facility] 00:00:00 [facility] DTaP, Unspecified 2003-04-28 Completed [facility] Formulation 00:00:00 [facility] MMR 2003-04-28 Completed [facility] 00:00:00 [facility] IPV 2003-04-28 Completed [facility] 00:00:00 [facility] DTaP, Unspecified 2003-04-28 Completed [facility] Formulation 00:00:00 [facility] MMR 2003-04-28 Completed [facility] 00:00:00 [facility] IPV 2003-04-28 Completed [facility] 00:00:00 [facility] DTaP, Unspecified 2003-04-28 Completed [facility] Formulation 00:00:00 [facility] MMR 2003-04-28 Completed [facility] 00:00:00 [facility] IPV 2003-04-28 Completed [facility] 00:00:00 [facility] DTaP, Unspecified 2003-04-28 Completed [facility] Formulation 00:00:00 [facility] MMR 2003-04-28 Completed [facility] 00:00:00 [facility] IPV 2003-04-28 Completed [facility] 00:00:00 [facility] DTaP, Unspecified 2003-04-28 Completed [facility] Formulation 00:00:00 [facility] MMR 2003-04-28 Completed [facility] 00:00:00 [facility] IPV 2003-04-28 Completed [facility] 00:00:00 [facility] DTaP, Unspecified 2003-04-28 Completed [facility] Formulation 00:00:00 [facility] MMR 2003-04-28 Completed [facility] 00:00:00 [facility] IPV 2003-04-28 Completed [facility] 00:00:00 [facility] DTaP, Unspecified 2003-04-28 Completed [facility] Formulation 00:00:00 [facility] MMR 2003-04-28 Completed [facility] 00:00:00 [facility] IPV 2003-04-28 Completed [facility] 00:00:00 [facility] DTaP, Unspecified 2003-04-28 Completed [facility] Formulation 00:00:00 [facility] MMR 2003-04-28 Completed [facility] 00:00:00 [facility] IPV 2003-04-28 Completed [facility] 00:00:00 [facility] DTaP, Unspecified 2003-04-28 Completed [facility] Formulation 00:00:00 [facility] MMR 2003-04-28 Completed [facility] 00:00:00 [facility] IPV 2003-04-28 Completed [facility] 00:00:00 [place] [facility] DTaP, Unspecified 2003-04-28 Completed [facility] Formulation 00:00:00 [facility] MMR 2003-04-28 Completed [facility] 00:00:00 [facility] IPV 2003-04-28 Completed [facility] 00:00:00 [facility] DTaP, Unspecified 2003-04-28 Completed [facility] Formulation 00:00:00 [facility] MMR 2003-04-28 Completed [facility] 00:00:00 [facility] IPV 2003-04-28 Completed [facility] 00:00:00 [facility] HIB 4 Dose Schedule 2002-11-11 Completed [facility] rsity of 00:00:00 [facility] Hep B, Adol or Pedi 2002-11-11 Completed [facility] of Dosage 00:00:00 [facility] MMR 2002-11-11 Completed [facility] 00:00:00 [facility] DTaP, Unspecified 2002-11-11 Completed [facility] Formulation 00:00:00 [facility] Polio (IPV/OPV) 2002-11-11 Completed [facility] 00:00:00 [facility] IPV 2002-11-11 Completed [facility] 00:00:00 [facility] Varicella 2002-11-11 Completed [facility] of (varivax)(chicken 00:00:00 [place] [facility] pox) [facility] DTAP 2002-11-11 Completed [facility] 00:00:00 [facility] Hep B, Adol or Pedi 2002-11-11 Completed [facility] rs[facility] of Dosage 00:00:00 [facility] HIB 4 Dose Schedule 2002-11-11 Completed [facility] rs[facility] of 00:00:00 [facility] DTaP, Unspecified 2002-11-11 Completed [facility] Formulation 00:00:00 [facility] Polio (IPV/OPV) 2002-11-11 Completed [facility] 00:00:00 [facility] IPV 2002-11-11 Completed [facility] 00:00:00 [facility] MMR 2002-11-11 Completed [facility] 00:00:00 [facility] Varicella 2002-11-11 Completed [facility] (varivax)(chicken 00:00:00 [place] [facility] DTaP, Unspecified 2002-11-11 Completed [facility] Formulation 00:00:00 [facility] IPV 2002-11-11 Completed [facility] 00:00:00 [facility] DTaP, Unspecified 2002-11-11 Completed [facility] Formulation 00:00:00 [facility] IPV 2002-11-11 Completed [facility] 00:00:00 [facility] DTaP, Unspecified 2002-11-11 Completed [facility] Formulation 00:00:00 [facility] IPV 2002-11-11 Completed [facility] 00:00:00 [facility] DTAP 2002-11-11 Completed [facility] 00:00:00 [facility] HIB 4 Dose Schedule 2002-11-11 Completed [facility] rs[facility] of 00:00:00 [facility] Hep B, Adol or Pedi 2002-11-11 Completed [facility] of Dosage 00:00:00 [facility] DTaP, Unspecified 2002-11-11 Completed [facility] Formulation 00:00:00 [facility] MMR 2002-11-11 Completed [facility] 00:00:00 [facility] IPV 2002-11-11 Completed [facility] 00:00:00 [facility] Polio (IPV/OPV) 2002-11-11 Completed [facility] 00:00:00 [facility] Varicella 2002-11-11 Completed [facility] (varivax)(chicken 00:00:00 [place] [facility] DTAP 2002-11-11 Completed [facility] 00:00:00 [facility] Hep B, Adol or Pedi 2002-11-11 Completed [facility] rs[facility] of Dosage 00:00:00 [facility] DTaP, Unspecified 2002-11-11 Completed [facility] Formulation 00:00:00 [facility] HIB 4 Dose Schedule 2002-11-11 Completed [facility] rs[facility] of 00:00:00 [facility] IPV 2002-11-11 Completed [facility] 00:00:00 [facility] Polio (IPV/OPV) 2002-11-11 Completed [facility] 00:00:00 [facility] MMR 2002-11-11 Completed [facility] 00:00:00 [facility] DTaP, Unspecified 2002-11-11 Completed [facility] Formulation 00:00:00 [facility] Varicella 2002-11-11 Completed [facility] (varivax)(chicken 00:00:00 [place] [facility]ox[facility] IPV 2002-11-11 Completed [facility] 00:00:00 [facility] DTAP 2002-11-11 Completed [facility] 00:00:00 [facility] HIB 4 Dose Schedule 2002-11-11 Completed [facility] rs[facility] of 00:00:00 [facility] Hep B, Adol or Pedi 2002-11-11 Completed [facility] of Dosage 00:00:00 [facility] MMR 2002-11-11 Completed [facility] 00:00:00 [facility] Polio (IPV/OPV) 2002-11-11 Completed [facility] 00:00:00 [facility] Varicella 2002-11-11 Completed [facility] (varivax)(chicken 00:00:00 [place] [facility] pox[facility] DTAP 2002-11-11 Completed [facility] 00:00:00 [facility] Hep B, Adol or Pedi 2002-11-11 Completed [facility] rs[facility] of Dosage 00:00:00 [facility] HIB 4 Dose Schedule 2002-11-11 Completed [facility] of 00:00:00 [facility] Polio (IPV/OPV) 2002-11-11 Completed [facility] 00:00:00 [facility] MMR 2002-11-11 Completed [facility] 00:00:00 [facility] Varicella 2002-11-11 Completed [facility] (varivax)(chicken 00:00:00 [place] [facility] pox) [facility] DTAP 2002-11-11 Completed [facility] 00:00:00 [facility] HIB 4 Dose Schedule 2002-11-11 Completed [facility] rs[facility] of 00:00:00 [facility] Hep B, Adol or Pedi 2002-11-11 Completed [facility] of Dosage 00:00:00 [facility] MMR 2002-11-11 Completed [facility] 00:00:00 [facility] Polio (IPV/OPV) 2002-11-11 Completed [facility] 00:00:00 [facility] Varicella 2002-11-11 Completed [facility] (varivax)(chicken 00:00:00 [place] [facility] pox[facility] DTAP 2002-11-11 Completed [facility] 00:00:00 [facility] Hep B, Adol or Pedi 2002-11-11 Completed [facility] rs[facility] of Dosage 00:00:00 [facility] HIB 4 Dose Schedule 2002-11-11 Completed [facility] rs[facility] of 00:00:00 [facility] Polio (IPV/OPV) 2002-11-11 Completed [facility] 00:00:00 [facility] MMR 2002-11-11 Completed [facility] 00:00:00 [facility] Varicella 2002-11-11 Completed [facility] (varivax)(chicken 00:00:00 [place] [facility] pox[facility] DTAP 2002-11-11 Completed [facility] 00:00:00 [facility] HIB 4 Dose Schedule 2002-11-11 Completed [facility] rs[facility] of 00:00:00 [facility] Hep B, Adol or Pedi 2002-11-11 Completed [facility] rs[facility] of Dosage 00:00:00 [facility] MMR 2002-11-11 Completed [facility] 00:00:00 [facility] Polio (IPV/OPV) 2002-11-11 Completed [facility] 00:00:00 [facility] Varicella 2002-11-11 Completed [facility] (varivax)(chicken 00:00:00 [place] [facility] DTAP 2002-11-11 Completed [facility] 00:00:00 [facility] Hep B, Adol or Pedi 2002-11-11 Completed [facility] rs[facility] of Dosage 00:00:00 [facility] HIB 4 Dose Schedule 2002-11-11 Completed [facility] rs[facility] of 00:00:00 [facility] Polio (IPV/OPV) 2002-11-11 Completed [facility] 00:00:00 [facility] MMR 2002-11-11 Completed [facility] 00:00:00 [facility] Varicella 2002-11-11 Completed [facility] (varivax)(chicken 00:00:00 [place] [facility] pox) [facility] DTAP 2002-11-11 Completed [facility] 00:00:00 [facility] HIB 4 Dose Schedule 2002-11-11 Completed [facility] rs[facility] of 00:00:00 [facility] Hep B, Adol or Pedi 2002-11-11 Completed [facility] rs[facility] of Dosage 00:00:00 [facility] MMR 2002-11-11 Completed [facility] 00:00:00 [facility] Polio (IPV/OPV) 2002-11-11 Completed [facility] 00:00:00 [facility] Varicella 2002-11-11 Completed [facility] (varivax)(chicken 00:00:00 [place] [facility] pox) [facility] DTAP 2002-11-11 Completed [facility] 00:00:00 [facility] Hep B, Adol or Pedi 2002-11-11 Completed [facility] rs[facility] of Dosage 00:00:00 [facility] HIB 4 Dose Schedule 2002-11-11 Completed [facility] rs[facility] of 00:00:00 [facility] Polio (IPV/OPV) 2002-11-11 Completed [facility] 00:00:00 [facility] MMR 2002-11-11 Completed [facility] 00:00:00 [facility] Varicella 2002-11-11 Completed [facility] (varivax)(chicken 00:00:00 [place] [facility] DTAP 2002-11-11 Completed [facility] 00:00:00 [facility] DTAP 2002-11-11 Completed [facility] 00:00:00 [facility] HIB 4 Dose Schedule 2002-11-11 Completed [facility] rs[facility] of 00:00:00 [facility] HIB 4 Dose Schedule 2002-11-11 Completed [facility] rs[facility] of 00:00:00 [facility] Hep B, Adol or Pedi 2002-11-11 Completed [facility] rs[facility] of Dosage 00:00:00 [facility] MMR 2002-11-11 Completed [facility] 00:00:00 [facility] Polio (IPV/OPV) 2002-11-11 Completed [facility] 00:00:00 [facility] Varicella 2002-11-11 Completed [facility] (varivax)(chicken 00:00:00 [place] [facility]ox) [facility] DTAP 2002-11-11 Completed [facility] 00:00:00 [facility] Hep B, Adol or Pedi 2002-11-11 Completed [facility] rs[facility] of Dosage 00:00:00 [facility] HIB 4 Dose Schedule 2002-11-11 Completed [facility] rs[facility] of 00:00:00 [facility] Polio (IPV/OPV) 2002-11-11 Completed [facility] 00:00:00 [facility] MMR 2002-11-11 Completed [facility] 00:00:00 [facility] Hep B, Adol or Pedi 2002-11-11 Completed [facility] rs[facility] of Dosage 00:00:00 [facility] Varicella 2002-11-11 Completed [facility] (varivax)(chicken 00:00:00 [place] [facility] MMR 2002-11-11 Completed [facility] 00:00:00 [facility] DTAP 2002-11-11 Completed [facility] 00:00:00 [facility] HIB 4 Dose Schedule 2002-11-11 Completed [facility] rs[facility] of 00:00:00 [facility] Hep B, Adol or Pedi 2002-11-11 Completed [facility] rs[facility] of Dosage 00:00:00 [facility] MMR 2002-11-11 Completed [facility] 00:00:00 [facility] Polio (IPV/OPV) 2002-11-11 Completed [facility] 00:00:00 [facility] Varicella 2002-11-11 Completed [facility] (varivax)(chicken 00:00:00 [place] [facility] p[facility] Polio (IPV/OPV) 2002-11-11 Completed [facility] 00:00:00 [facility] DTAP 2002-11-11 Completed [facility] 00:00:00 [facility] Hep B, Adol or Pedi 2002-11-11 Completed [facility] rs[facility] of Dosage 00:00:00 [facility] HIB 4 Dose Schedule 2002-11-11 Completed [facility] rs[facility] of 00:00:00 [facility] Polio (IPV/OPV) 2002-11-11 Completed [facility] 00:00:00 [facility] MMR 2002-11-11 Completed [facility] 00:00:00 [facility] Varicella 2002-11-11 Completed [facility] (varivax)(chicken 00:00:00 [place] [facility] Varicella 2002-11-11 Completed [facility] (varivax)(chicken 00:00:00 [place] [facility]ox[facility] DTAP 2002-11-11 Completed [facility] 00:00:00 [facility] DTAP 2002-11-11 Completed [facility] 00:00:00 [facility] HIB 4 Dose Schedule 2002-11-11 Completed [facility] rs[facility] of 00:00:00 [facility] Hep B, Adol or Pedi 2002-11-11 Completed [facility] of Dosage 00:00:00 [facility] MMR 2002-11-11 Completed [facility] 00:00:00 [facility] Polio (IPV/OPV) 2002-11-11 Completed [facility] 00:00:00 [facility] Varicella 2002-11-11 Completed [facility] (varivax)(chicken 00:00:00 [place] [facility]ox[facility] DTAP 2002-11-11 Completed [facility] 00:00:00 [facility] Hep B, Adol or Pedi 2002-11-11 Completed [facility] rs[facility] of Dosage 00:00:00 [facility] HIB 4 Dose Schedule 2002-11-11 Completed [facility] rs[facility] of 00:00:00 [facility] Hep B, Adol or Pedi 2002-11-11 Completed [facility] rs[facility] of Dosage 00:00:00 [facility] Polio (IPV/OPV) 2002-11-11 Completed [facility] 00:00:00 [facility] MMR 2002-11-11 Completed [facility] 00:00:00 [facility] Varicella 2002-11-11 Completed [facility] (varivax)(chicken 00:00:00 [place] [facility] HIB 4 Dose Schedule 2002-11-11 Completed [facility] rs[facility] of 00:00:00 [facility] DTAP 2002-11-11 Completed [facility] 00:00:00 [facility] HIB 4 Dose Schedule 2002-11-11 Completed [facility] rs[facility] of 00:00:00 [facility] Hep B, Adol or Pedi 2002-11-11 Completed [facility] of Dosage 00:00:00 [facility] MMR 2002-11-11 Completed [facility] 00:00:00 [facility] Polio (IPV/OPV) 2002-11-11 Completed [facility] 00:00:00 [facility] Varicella 2002-11-11 Completed [facility] (varivax)(chicken 00:00:00 [facility] edical pox) Branch Polio (IPV/OPV) 2002-11-11 Completed [facility] 00:00:00 [facility] DTAP 2002-11-11 Completed [facility] 00:00:00 [facility] Hep B, Adol or Pedi 2002-11-11 Completed [facility] rs[facility] of Dosage 00:00:00 [facility] HIB 4 Dose Schedule 2002-11-11 Completed [facility] rs[facility] of 00:00:00 [facility] Polio (IPV/OPV) 2002-11-11 Completed [facility] 00:00:00 [facility] MMR 2002-11-11 Completed [facility] 00:00:00 [facility] Varicella 2002-11-11 Completed [facility] (varivax)(chicken 00:00:00 [place] [facility]ox[facility] MMR 2002-11-11 Completed [facility] 00:00:00 [facility] Varicella 2002-11-11 Completed [facility] (varivax)(chicken 00:00:00 [place] [facility] pox[facility] DTAP 2002-11-11 Completed [facility] 00:00:00 [facility] HIB 4 Dose Schedule 2002-11-11 Completed [facility] rs[facility] 00:00:00 [facility] Hep B, Adol or Pedi 2002-11-11 Completed [facility] rs[facility] of Dosage 00:00:00 [facility] MMR 2002-11-11 Completed [facility] 00:00:00 [facility] Polio (IPV/OPV) 2002-11-11 Completed [facility] 00:00:00 [facility] Varicella 2002-11-11 Completed [facility] (varivax)(chicken 00:00:00 [place] [facility] DTAP 2002-11-11 Completed [facility] 00:00:00 [facility] Hep B, Adol or Pedi 2002-11-11 Completed [facility] rs[facility] of Dosage 00:00:00 [facility] HIB 4 Dose Schedule 2002-11-11 Completed [facility] rs[facility] of 00:00:00 [facility] Polio (IPV/OPV) 2002-11-11 Completed [facility] 00:00:00 [facility] MMR 2002-11-11 Completed [facility] 00:00:00 [facility] Varicella 2002-11-11 Completed [facility] (varivax)(chicken 00:00:00 [place] [facility] pox) [facility] DTAP 2002-11-11 Completed [facility] 00:00:00 [facility] HIB 4 Dose Schedule 2002-11-11 Completed [facility] rs[facility] of 00:00:00 [facility] Hep B, Adol or Pedi 2002-11-11 Completed [facility] of Dosage 00:00:00 [facility] MMR 2002-11-11 Completed [facility] 00:00:00 [facility] Polio (IPV/OPV) 2002-11-11 Completed [facility] 00:00:00 [facility] Varicella 2002-11-11 Completed [facility] (varivax)(chicken 00:00:00 [place] [facility] DTAP 2002-11-11 Completed [facility] 00:00:00 [facility] Hep B, Adol or Pedi 2002-11-11 Completed [facility] rs[facility] of Dosage 00:00:00 [facility] HIB 4 Dose Schedule 2002-11-11 Completed [facility] rs[facility] of 00:00:00 [facility] Polio (IPV/OPV) 2002-11-11 Completed [facility] 00:00:00 [facility] MMR 2002-11-11 Completed [facility] 00:00:00 [facility] Varicella 2002-11-11 Completed [facility] (varivax)(chicken 00:00:00 [place] [facility]ox[facility] DTAP 2002-11-11 Completed [facility] 00:00:00 [facility] HIB 4 Dose Schedule 2002-11-11 Completed [facility] rs[facility] of 00:00:00 [facility] Hep B, Adol or Pedi 2002-11-11 Completed [facility] rs[facility] of Dosage 00:00:00 [facility] MMR 2002-11-11 Completed [facility] 00:00:00 [facility] Polio (IPV/OPV) 2002-11-11 Completed [facility] 00:00:00 [facility] Varicella 2002-11-11 Completed [facility] of (varivax)(chicken 00:00:00 [facility] edical pox) Branch DTAP 2002-11-11 Completed [facility] 00:00:00 [facility] Hep B, Adol or Pedi 2002-11-11 Completed [facility] rs[facility] of Dosage 00:00:00 [facility] HIB 4 Dose Schedule 2002-11-11 Completed [facility] rs[facility] of 00:00:00 [facility] Polio (IPV/OPV) 2002-11-11 Completed [facility] 00:00:00 [facility] MMR 2002-11-11 Completed [facility] 00:00:00 [facility] Varicella 2002-11-11 Completed [facility] of (varivax)(chicken 00:00:00 [facility] edical pox) Branch DTaP, Unspecified 2002-11-11 Completed [facility] Formulation 00:00:00 [facility] IPV 2002-11-11 Completed [facility] 00:00:00 [facility] DTAP 2002-11-11 Completed [facility] 00:00:00 [facility] HIB 4 Dose Schedule 2002-11-11 Completed [facility] rs[facility] of 00:00:00 [facility] DTaP, Unspecified 2002-11-11 Completed [facility] Formulation 00:00:00 [facility] IPV 2002-11-11 Completed [facility] 00:00:00 [facility] Hep B, Adol or Pedi 2002-11-11 Completed [facility] rs[facility] of Dosage 00:00:00 [facility] MMR 2002-11-11 Completed [facility] 00:00:00 [facility] Polio (IPV/OPV) 2002-11-11 Completed [facility] 00:00:00 [facility] DTaP, Unspecified 2002-11-11 Completed [facility] Formulation 00:00:00 [facility] Varicella 2002-11-11 Completed [facility] (varivax)(chicken 00:00:00 [place] [facility] IPV 2002-11-11 Completed [facility] 00:00:00 [facility] DTAP 2002-11-11 Completed [facility] 00:00:00 [facility] Hep B, Adol or Pedi 2002-11-11 Completed [facility] rs[facility] of Dosage 00:00:00 [facility] DTaP, Unspecified 2002-11-11 Completed [facility] Formulation 00:00:00 [facility] HIB 4 Dose Schedule 2002-11-11 Completed [facility] rs[facility] of 00:00:00 [facility] IPV 2002-11-11 Completed [facility] 00:00:00 [facility] Polio (IPV/OPV) 2002-11-11 Completed [facility] 00:00:00 [facility] MMR 2002-11-11 Completed [facility] 00:00:00 [facility] DTaP, Unspecified 2002-11-11 Completed [facility] Formulation 00:00:00 [facility] Varicella 2002-11-11 Completed [facility] (varivax)(chicken 00:00:00 [place] [facility]ox) [facility] IPV 2002-11-11 Completed [facility] 00:00:00 [facility] DTaP, Unspecified 2002-11-11 Completed [facility] Formulation 00:00:00 [facility] IPV 2002-11-11 Completed [facility] 00:00:00 [facility] DTaP, Unspecified 2002-11-11 Completed [facility] Formulation 00:00:00 [facility] IPV 2002-11-11 Completed [facility] 00:00:00 [facility] DTAP 2002-11-11 Completed [facility] 00:00:00 [facility] HIB 4 Dose Schedule 2002-11-11 Completed [facility] rsity of 00:00:00 [facility] DTaP, Unspecified 2002-11-11 Completed [facility] Formulation 00:00:00 [facility] Hep B, Adol or Pedi 2002-11-11 Completed [facility] rs[facility] of Dosage 00:00:00 [facility] IPV 2002-11-11 Completed [facility] 00:00:00 [facility] MMR 2002-11-11 Completed [facility] 00:00:00 [facility] Polio (IPV/OPV) 2002-11-11 Completed [facility] 00:00:00 [facility] DTaP, Unspecified 2002-11-11 Completed [facility] Formulation 00:00:00 [facility] Varicella 2002-11-11 Completed [facility] (varivax)(chicken 00:00:00 [place] [facility] IPV 2002-11-11 Completed [facility] 00:00:00 [facility] DTAP 2002-11-11 Completed [facility] 00:00:00 [facility] Hep B, Adol or Pedi 2002-11-11 Completed [facility] rs[facility] of Dosage 00:00:00 [facility] DTaP, Unspecified 2002-11-11 Completed [facility] Formulation 00:00:00 [facility] HIB 4 Dose Schedule 2002-11-11 Completed [facility] rsity of 00:00:00 [facility] IPV 2002-11-11 Completed [facility] 00:00:00 [facility] Polio (IPV/OPV) 2002-11-11 Completed [facility] 00:00:00 [facility] MMR 2002-11-11 Completed [facility] 00:00:00 [facility] Varicella 2002-11-11 Completed [facility] (varivax)(chicken 00:00:00 [place] [facility] DTaP, Unspecified 2002-11-11 Completed [facility] Formulation 00:00:00 [facility] IPV 2002-11-11 Completed [facility] 00:00:00 [facility] DTaP, Unspecified 2002-11-11 Completed [facility] Formulation 00:00:00 [facility] IPV 2002-11-11 Completed [facility] 00:00:00 [facility] DTaP, Unspecified 2002-11-11 Completed [facility] Formulation 00:00:00 [facility] DTAP 2002-11-11 Completed [facility] 00:00:00 [facility] IPV 2002-11-11 Completed [facility] 00:00:00 [facility] Poliovirus, Live, 1999-05-14 Completed Univers ity of Oral, Trivalent 00:00:00 [facility] DTaP, Unspecified 1999-05-14 Completed [facility] it[facility] of Formulation 00:00:00 [facility] HIB 4 Dose Schedule 1999-05-14 Completed [facility] rsity of 00:00:00 [facility] Poliovirus, Live, 1999-05-14 Completed [facility] Oral, Trivalent 00:00:00 [place] [facility] DTaP, Unspecified 1999-05-14 Completed [facility] of Formulation 00:00:00 [facility] HIB 4 Dose Schedule 1999-05-14 Completed [facility]ive rsity of 00:00:00 [facility] Poliovirus, Live, 1999-05-14 Completed [facility] of Oral, Trivalent 00:00:00 [facility] DTaP, Unspecified 1999-05-14 Completed [facility] it[facility] of Formulation 00:00:00 [facility] HIB 4 Dose Schedule 1999-05-14 Completed Unive rsity of 00:00:00 [facility] Poliovirus, Live, 1999-05-14 Completed [facility] of Oral, Trivalent 00:00:00 [facility] DTaP, Unspecified 1999-05-14 Completed [facility] of Formulation 00:00:00 [facility] HIB 4 Dose Schedule 1999-05-14 Completed [facility] rsity of 00:00:00 [facility] Poliovirus, Live, 1999-05-14 Completed [facility] of Oral, Trivalent 00:00:00 [facility] DTaP, Unspecified 1999-05-14 Completed [facility] of Formulation 00:00:00 [facility] HIB 4 Dose Schedule 1999-05-14 Completed [facility] rsity of 00:00:00 [facility] Poliovirus, Live, 1999-05-14 Completed [facility] of Oral, Trivalent 00:00:00 [facility] DTaP, Unspecified 1999-05-14 Completed [facility] of Formulation 00:00:00 [facility] HIB 4 Dose Schedule 1999-05-14 Completed [facility] rsity of 00:00:00 [facility] Poliovirus, Live, 1999-05-14 Completed [facility] of Oral, Trivalent 00:00:00 [facility] DTaP, Unspecified 1999-05-14 Completed [facility] of Formulation 00:00:00 [facility] HIB 4 Dose Schedule 1999-05-14 Completed [facility] rsity of 00:00:00 [facility] Poliovirus, Live, 1999-05-14 Completed [facility] of Oral, Trivalent 00:00:00 [facility] DTaP, Unspecified 1999-05-14 Completed [facility] of Formulation 00:00:00 [facility] HIB 4 Dose Schedule 1999-05-14 Completed [facility] rsity of 00:00:00 [facility] Poliovirus, Live, 1999-05-14 Completed [facility] of Oral, Trivalent 00:00:00 [facility] DTaP, Unspecified 1999-05-14 Completed [facility] of Formulation 00:00:00 [facility] HIB 4 Dose Schedule 1999-05-14 Completed [facility] rsity of 00:00:00 [facility] Poliovirus, Live, 1999-05-14 Completed [facility] of Oral, Trivalent 00:00:00 [facility] DTaP, Unspecified 1999-05-14 Completed [facility] of Formulation 00:00:00 [facility] HIB 4 Dose Schedule 1999-05-14 Completed [facility] rsity of 00:00:00 [facility] Poliovirus, Live, 1999-05-14 Completed [facility] of Oral, Trivalent 00:00:00 [facility] DTaP, Unspecified 1999-05-14 Completed [facility] of Formulation 00:00:00 [facility] HIB 4 Dose Schedule 1999-05-14 Completed [facility] rsity of 00:00:00 [facility] Poliovirus, Live, 1999-05-14 Completed [facility] of Oral, Trivalent 00:00:00 [facility] DTaP, Unspecified 1999-05-14 Completed [facility] Formulation 00:00:00 [facility] HIB 4 Dose Schedule 1999-05-14 Completed [facility] rs[facility] of 00:00:00 [facility] Poliovirus, Live, 1999-05-14 Completed [facility] of Oral, Trivalent 00:00:00 [facility] DTaP, Unspecified 1999-05-14 Completed [facility] Formulation 00:00:00 [facility] HIB 4 Dose Schedule 1999-05-14 Completed [facility] rs[facility] of 00:00:00 [facility] Poliovirus, Live, 1999-05-14 Completed [facility] of Oral, Trivalent 00:00:00 [facility] DTaP, Unspecified 1999-05-14 Completed [facility] of Formulation 00:00:00 [facility] HIB 4 Dose Schedule 1999-05-14 Completed [facility] rs[facility] of 00:00:00 [facility] Poliovirus, Live, 1999-05-14 Completed [facility] of Oral, Trivalent 00:00:00 [facility] DTaP, Unspecified 1999-05-14 Completed [facility] Formulation 00:00:00 [facility] HIB 4 Dose Schedule 1999-05-14 Completed [facility] 00:00:00 [facility] Poliovirus, Live, 1999-05-14 Completed [facility] Oral, Trivalent 00:00:00 [facility] DTaP, Unspecified 1999-05-14 Completed [facility] Formulation 00:00:00 [facility] HIB 4 Dose Schedule 1999-05-14 Completed [facility] 00:00:00 [facility] Poliovirus, Live, 1999-05-14 Completed [facility] Oral, Trivalent 00:00:00 [facility] DTaP, Unspecified 1999-05-14 Completed [facility] Formulation 00:00:00 [facility] HIB 4 Dose Schedule 1999-05-14 Completed [facility] 00:00:00 [facility] Poliovirus, Live, 1999-05-14 Completed [facility] Oral, Trivalent 00:00:00 [facility] DTaP, Unspecified 1999-05-14 Completed [facility] Formulation 00:00:00 [facility] HIB 4 Dose Schedule 1999-05-14 Completed [facility] 00:00:00 [facility] Poliovirus, Live, 1999-05-14 Completed [facility] Oral, Trivalent 00:00:00 [facility] DTaP, Unspecified 1999-05-14 Completed [facility] Formulation 00:00:00 [facility] HIB 4 Dose Schedule 1999-05-14 Completed [facility] 00:00:00 [facility] Poliovirus, Live, 1999-05-14 Completed [facility] Oral, Trivalent 00:00:00 [facility] DTaP, Unspecified 1999-05-14 Completed [facility] Formulation 00:00:00 [facility] HIB 4 Dose Schedule 1999-05-14 Completed [facility] 00:00:00 [facility] Poliovirus, Live, 1999-05-14 Completed [facility] Oral, Trivalent 00:00:00 [facility] DTaP, Unspecified 1999-05-14 Completed [facility] Formulation 00:00:00 [facility] HIB 4 Dose Schedule 1999-05-14 Completed [facility] 00:00:00 [facility] Poliovirus, Live, 1999-01-26 Completed [facility] Oral, Trivalent 00:00:00 [facility] DTaP, Unspecified 1999-01-26 Completed [facility] Formulation 00:00:00 [facility] Hep B, Adol or Pedi 1999-01-26 Completed [facility] Dosage 00:00:00 [facility] HIB 4 Dose Schedule 1999-01-26 Completed [facility] 00:00:00 [facility] Poliovirus, Live, 1999-01-26 Completed [facility] Oral, Trivalent 00:00:00 [facility] DTaP, Unspecified 1999-01-26 Completed [facility] Formulation 00:00:00 [facility] Hep B, Adol or Pedi 1999-01-26 Completed [facility] Dosage 00:00:00 [facility] HIB 4 Dose Schedule 1999-01-26 Completed [facility] 00:00:00 [facility] Poliovirus, Live, 1999-01-26 Completed [facility] Oral, Trivalent 00:00:00 [facility] DTaP, Unspecified 1999-01-26 Completed [facility] Formulation 00:00:00 [facility] Hep B, Adol or Pedi 1999-01-26 Completed [facility] of Dosage 00:00:00 [facility] HIB 4 Dose Schedule 1999-01-26 Completed [facility] 00:00:00 [facility] Poliovirus, Live, 1999-01-26 Completed [facility] Oral, Trivalent 00:00:00 [facility] DTaP, Unspecified 1999-01-26 Completed [facility] Formulation 00:00:00 [facility] Hep B, Adol or Pedi 1999-01-26 Completed [facility] of Dosage 00:00:00 [facility] HIB 4 Dose Schedule 1999-01-26 Completed [facility] 00:00:00 [facility] Poliovirus, Live, 1999-01-26 Completed [facility] Oral, Trivalent 00:00:00 [facility] DTaP, Unspecified 1999-01-26 Completed [facility] Formulation 00:00:00 [facility] Hep B, Adol or Pedi 1999-01-26 Completed [facility] of Dosage 00:00:00 [facility] HIB 4 Dose Schedule 1999-01-26 Completed [facility] 00:00:00 [facility] Poliovirus, Live, 1999-01-26 Completed [facility] Oral, Trivalent 00:00:00 [facility] DTaP, Unspecified 1999-01-26 Completed [facility] Formulation 00:00:00 [facility] Hep B, Adol or Pedi 1999-01-26 Completed [facility] of Dosage 00:00:00 [facility] HIB 4 Dose Schedule 1999-01-26 Completed [facility] 00:00:00 [facility] Poliovirus, Live, 1999-01-26 Completed [facility] Oral, Trivalent 00:00:00 [facility] DTaP, Unspecified 1999-01-26 Completed [facility] Formulation 00:00:00 [facility] Hep B, Adol or Pedi 1999-01-26 Completed [facility] of Dosage 00:00:00 [facility] HIB 4 Dose Schedule 1999-01-26 Completed [facility] of 00:00:00 [facility] Poliovirus, Live, 1999-01-26 Completed [facility] Oral, Trivalent 00:00:00 [facility] DTaP, Unspecified 1999-01-26 Completed [facility] Formulation 00:00:00 [facility] Hep B, Adol or Pedi 1999-01-26 Completed [facility] of Dosage 00:00:00 [facility] HIB 4 Dose Schedule 1999-01-26 Completed [facility] of 00:00:00 [facility] Poliovirus, Live, 1999-01-26 Completed [facility] Oral, Trivalent 00:00:00 [facility] DTaP, Unspecified 1999-01-26 Completed [facility] Formulation 00:00:00 [facility] Hep B, Adol or Pedi 1999-01-26 Completed [facility] of Dosage 00:00:00 [facility] HIB 4 Dose Schedule 1999-01-26 Completed [facility] 00:00:00 [facility] Poliovirus, Live, 1999-01-26 Completed [facility] Oral, Trivalent 00:00:00 [facility] DTaP, Unspecified 1999-01-26 Completed [facility] Formulation 00:00:00 [facility] Hep B, Adol or Pedi 1999-01-26 Completed [facility] of Dosage 00:00:00 [facility] HIB 4 Dose Schedule 1999-01-26 Completed [facility] of 00:00:00 [facility] Poliovirus, Live, 1999-01-26 Completed [facility] Oral, Trivalent 00:00:00 [facility] DTaP, Unspecified 1999-01-26 Completed [facility] Formulation 00:00:00 [facility] Hep B, Adol or Pedi 1999-01-26 Completed [facility] of Dosage 00:00:00 [facility] HIB 4 Dose Schedule 1999-01-26 Completed [facility] 00:00:00 [facility] Poliovirus, Live, 1999-01-26 Completed [facility] Oral, Trivalent 00:00:00 [facility] DTaP, Unspecified 1999-01-26 Completed [facility] Formulation 00:00:00 [facility] Hep B, Adol or Pedi 1999-01-26 Completed [facility] of Dosage 00:00:00 [facility] HIB 4 Dose Schedule 1999-01-26 Completed [facility] of 00:00:00 [facility] Poliovirus, Live, 1999-01-26 Completed [facility] Oral, Trivalent 00:00:00 [facility] DTaP, Unspecified 1999-01-26 Completed [facility] Formulation 00:00:00 [facility] Hep B, Adol or Pedi 1999-01-26 Completed [facility] of Dosage 00:00:00 [facility] HIB 4 Dose Schedule 1999-01-26 Completed [facility] of 00:00:00 [facility] Poliovirus, Live, 1999-01-26 Completed [facility] Oral, Trivalent 00:00:00 [facility] DTaP, Unspecified 1999-01-26 Completed [facility] Formulation 00:00:00 [facility] Hep B, Adol or Pedi 1999-01-26 Completed [facility] of Dosage 00:00:00 [facility] HIB 4 Dose Schedule 1999-01-26 Completed [facility] of 00:00:00 [facility] Poliovirus, Live, 1999-01-26 Completed [facility] Oral, Trivalent 00:00:00 [facility] DTaP, Unspecified 1999-01-26 Completed [facility] Formulation 00:00:00 [facility] Hep B, Adol or Pedi 1999-01-26 Completed [facility] of Dosage 00:00:00 [facility] HIB 4 Dose Schedule 1999-01-26 Completed [facility] 00:00:00 [facility] Poliovirus, Live, 1999-01-26 Completed [facility] Oral, Trivalent 00:00:00 [facility] DTaP, Unspecified 1999-01-26 Completed [facility] Formulation 00:00:00 [facility] Hep B, Adol or Pedi 1999-01-26 Completed [facility] of Dosage 00:00:00 [facility] HIB 4 Dose Schedule 1999-01-26 Completed [facility] of 00:00:00 [facility] Poliovirus, Live, 1999-01-26 Completed [facility] Oral, Trivalent 00:00:00 [facility] DTaP, Unspecified 1999-01-26 Completed [facility] Formulation 00:00:00 [facility] Hep B, Adol or Pedi 1999-01-26 Completed [facility] of Dosage 00:00:00 [facility] HIB 4 Dose Schedule 1999-01-26 Completed [facility] 00:00:00 [facility] Poliovirus, Live, 1999-01-26 Completed [facility] Oral, Trivalent 00:00:00 [facility] DTaP, Unspecified 1999-01-26 Completed [facility] Formulation 00:00:00 [facility] Hep B, Adol or Pedi 1999-01-26 Completed [facility] of Dosage 00:00:00 [facility] HIB 4 Dose Schedule 1999-01-26 Completed [facility] of 00:00:00 [facility] Poliovirus, Live, 1999-01-26 Completed [facility] Oral, Trivalent 00:00:00 [facility] DTaP, Unspecified 1999-01-26 Completed [facility] Formulation 00:00:00 [facility] Hep B, Adol or Pedi 1999-01-26 Completed [facility] of Dosage 00:00:00 [facility] HIB 4 Dose Schedule 1999-01-26 Completed [facility] 00:00:00 [facility] Poliovirus, Live, 1999-01-26 Completed [facility], Trivalent 00:00:00 [place] [facility] DTaP, Unspecified 1999-01-26 Completed [facility] Formulation 00:00:00 [facility] Hep B, Adol or Pedi 1999-01-26 Completed [facility] of Dosage 00:00:00 [facility] HIB 4 Dose Schedule 1999-01-26 Completed [facility] 00:00:00 [facility] Poliovirus, Live, 1999-01-26 Completed [facility] Oral, Trivalent 00:00:00 [facility] DTaP, Unspecified 1999-01-26 Completed [facility] Formulation 00:00:00 [facility] Hep B, Adol or Pedi 1999-01-26 Completed [facility] of Dosage 00:00:00 [facility] HIB 4 Dose Schedule 1999-01-26 Completed [facility] 00:00:00 [facility] Hep B, Adol or Pedi 1998 Completed [facility] of Dosage 00:00:00 [facility] Hep B, Adol or Pedi 1998 Completed [facility] of Dosage 00:00:00 [facility] Hep B, Adol or Pedi 1998 Completed [facility] of Dosage 00:00:00 [facility] Hep B, Adol or Pedi 1998 Completed [facility] of Dosage 00:00:00 [facility] Hep B, Adol or Pedi 1998 Completed [facility] of Dosage 00:00:00 [facility] Hep B, Adol or Pedi 1998 Completed [facility] of Dosage 00:00:00 [facility] Hep B, Adol or Pedi 1998 Completed [facility] of Dosage 00:00:00 [facility] Hep B, Adol or Pedi 1998 Completed [facility] of Dosage 00:00:00 [facility] Hep B, Adol or Pedi 1998 Completed [facility] of Dosage 00:00:00 [facility] Hep B, Adol or Pedi 1998 Completed [facility] of Dosage 00:00:00 [facility] Hep B, Adol or Pedi 1998 Completed [facility] Dosage 00:00:00 [facility] Hep B, Adol or Pedi 1998 Completed [facility] of Dosage 00:00:00 [facility] Hep B, Adol or Pedi 1998 Completed [facility] of Dosage 00:00:00 [facility] Hep B, Adol or Pedi 1998 Completed [facility] of Dosage 00:00:00 [facility] Hep B, Adol or Pedi 1998 Completed [facility] of Dosage 00:00:00 [facility] Hep B, Adol or Pedi 1998 Completed [facility] of Dosage 00:00:00 [facility] Hep B, Adol or Pedi 1998 Completed [facility] of Dosage 00:00:00 [facility] Hep B, Adol or Pedi 1998 Completed [facility] of Dosage 00:00:00 [facility] Hep B, Adol or Pedi 1998 Completed [facility] of Dosage 00:00:00 [facility] Hep B, Adol or Pedi 1998 Completed [facility] Dosage 00:00:00 [facility] Hep B, Adol or Pedi 1998 Completed [facility] Dosage 00:00:00 [facility] HPV Unknown Completed [facility] Meningococcal Unknown Completed [facility] Polysaccharide [facility] (groups A, C, Y and Branc h W-135) conjugate vaccine (MCV4P) TDAP (ADACEL) Unknown Completed [facility] Influenza Virus Unknown Completed [facility] Vaccine Quad .5 mL [facility] IM 6+ [place] [facility] (FLUZONE/FLULAVAL/FL UARIX) TDAP (ADACEL) Unknown Completed [facility] TDAP (ADACEL) Unknown Completed [facility] Influenza Virus Unknown Completed [facility] Vaccine Quad .5 mL [facility] IM 6+ [place] [facility] (FLUZONE/FLULAVAL/FL UARIX) HPV Unknown Completed [facility] Meningococcal Unknown Completed [facility] (groups A, C, Y and Branc h W-135) conjugate vaccine (MCV4P) Varicella Unknown Completed [facility] (varivax)(chicken [place] [facility] pox) [facility] SARS-COV-2 COVID-19 Unknown Completed [facility] of VACCINE - (MODERNA) [facility] SARS-COV-2 COVID-19 Unknown Completed [facility] of VACCINE - (MODERNA) [facility] DTaP, Unspecified Unknown Completed [facility] Form[facility] DTaP, Unspecified Unknown Completed [facility] Form[facility] DTaP, Unspecified Unknown Completed [facility] Form[facility] DTaP, Unspecified Unknown Completed [facility] Formulation [facility] HEPATITIS A Unknown Completed [facility] Hep B, Adol or Pedi Unknown Completed [facility] Dosage [facility] Hep B, Adol or Pedi Unknown Completed [facility] Dosage [facility] HIB 4 Dose Schedule Unknown Completed Unive rsity [facility] HIB 4 Dose Schedule Unknown Completed [facility]ive rsity [facility] MMR Unknown Completed [facility] IPV Unknown Completed [facility] IPV Unknown Completed [facility] Poliovirus, Live, Unknown Completed [facility]rivalent [facility] Live, Unknown Completed [facility] Oral, Trivalent [facility] Tetanus/Diptheria Unknown Completed [facility] it[facility] HPV Unknown Completed [facility] Meningococcal Unknown Completed [facility] moiz (groups A, C, Y and Branc h W-135) conjugate vaccine (MCV4P) TDAP (ADACEL) Unknown Completed [facility] Influenza Virus Unknown Completed [facility] Vaccine Quad .5 mL [facility] 6+ [place] [facility] (FLUZONE/FLULAVAL/FL UARIX) TDAP (ADACEL) Unknown Completed [facility] TDAP (ADACEL) Unknown Completed [facility] Influenza Virus Unknown Completed [facility] Vaccine Quad .5 mL [facility] 6+ [place] [facility] (FLUZONE/FLULAVAL/FL UARIX) HPV Unknown Completed [facility] Meningococcal Unknown Completed [facility] moiz (groups A, C, Y and Branc h W-135) conjugate vaccine (MCV4P) Varicella Unknown Completed [facility] (varivax)(chicken [place] [facility] pox) [place] SARS-COV-2 COVID-19 Unknown Completed [facility] of VACCINE - (MODERNA) [facility] SARS-COV-2 COVID-19 Unknown Completed [facility] of VACCINE - (MODERNA) [facility] DTaP, Unspecified Unknown Completed [facility] Formulation [facility] DTaP, Unspecified Unknown Completed [facility] Formulation [facility] DTaP, Unspecified Unknown Completed [facility] Formulation [facility] DTaP, Unspecified Unknown Completed [facility] Formulation [facility] HEPATITIS A Unknown Completed [facility] Hep B, Adol or Pedi Unknown Completed [facility] Dosage [facility] Hep B, Adol or Pedi Unknown Completed [facility] Dosage [facility] HIB 4 Dose Schedule Unknown Completed [facility] of [facility] HIB 4 Dose Schedule Unknown Completed Unive rsity [facility] MMR Unknown Completed [facility] IPV Unknown Completed [facility] IPV Unknown Completed [facility] Poliovirus, Live, Unknown Completed [facility] Oral, Trivalent [facility] Poliovirus, Live, Unknown Completed [facility] Oral, Trivalent [facility] Tetanus/Diptheria Unknown Completed [facility] HPV Unknown Completed [facility] Meningococcal Unknown Completed [facility] Polysaccharide [facility] moiz (groups A, C, Y and Branc h W-135) conjugate vaccine (MCV4P) TDAP (ADACEL) Unknown Completed [facility] Influenza Virus Unknown Completed [facility] Vaccine Quad .5 mL [facility] 6+ [place] [facility] (FLUZONE/FLULAVAL/FL UARIX) TDAP (ADACEL) Unknown Completed [facility] TDAP (ADACEL) Unknown Completed [facility] Influenza Virus Unknown Completed [facility] Vaccine Quad .5 mL [facility] 6+ [place] [facility] (FLUZONE/FLULAVAL/FL UARIX) HPV Unknown Completed [facility] Meningococcal Unknown Completed [facility] moiz (groups A, C, Y and Branc h W-135) conjugate vaccine (MCV4P) Varicella Unknown Completed [facility] (varivax)(chicken [place] [facility] pox) [facility] SARS-COV-2 COVID-19 Unknown Completed [facility] of VACCINE - (MODERNA) [facility] SARS-COV-2 COVID-19 Unknown Completed [facility] VACCINE - (MODERNA) [facility] DTaP, Unspecified Unknown Completed [facility] Formulation [facility] DTaP, Unspecified Unknown Completed [facility] Formulation [facility] DTaP, Unspecified Unknown Completed [facility] Formulation [facility] DTaP, Unspecified Unknown Completed [facility] Formulation [facility] HEPATITIS A Unknown Completed [facility] Hep B, Adol or Pedi Unknown Completed [facility] Dosage [facility] Hep B, Adol or Pedi Unknown Completed [facility] Dosage [facility] HIB 4 Dose Schedule Unknown [facility] Dose Schedule Unknown Completed [facility] MMR Unknown Completed [facility] IPV Unknown Completed [facility] IPV Unknown Completed [facility] Poliovirus, Live, Unknown Completed [facility] Oral, Trivalent [facility] Poliovirus, Live, Unknown Completed [facility] Oral, Trivalent [facility] Tetanus/Diptheria Unknown Completed [facility] HPV Unknown Completed [facility] Meningococcal Unknown Completed [facility] (groups A, C, Y and Branc h W-135) conjugate vaccine (MCV4P) TDAP (ADACEL) Unknown Completed [facility] Influenza Virus Unknown Completed [facility] Vaccine Quad .5 mL [facility] IM 6+ [place] [facility] (FLUZONE/FLULAVAL/FL UARIX) TDAP (ADACEL) Unknown Completed [facility] TDAP (ADACEL) Unknown Completed [facility] Influenza Virus Unknown Completed [facility] Vaccine Quad .5 mL [facility] IM 6+ [place] [facility] (FLUZONE/FLULAVAL/FL UARIX) HPV Unknown Completed [facility] Meningococcal Unknown Completed [facility] (groups A, C, Y and Branc h W-135) conjugate vaccine (MCV4P) Varicella Unknown Completed [facility] (varivax)(chicken [place] [facility] pox) [place] SARS-COV-2 COVID-19 Unknown Completed [facility] of VACCINE - (MODERNA) [facility] SARS-COV-2 COVID-19 Unknown Completed [facility] of VACCINE - (MODERNA) [facility] DTaP, Unspecified Unknown Completed [facility] Formulation [facility] DTaP, Unspecified Unknown Completed [facility] Formulation [facility] DTaP, Unspecified Unknown Completed [facility] Formulation [facility] DTaP, Unspecified Unknown Completed [facility] Formulation [facility] HEPATITIS A Unknown Completed [facility] Hep B, Adol or Pedi Unknown Completed [facility] of Dosage [facility] Hep B, Adol or Pedi Unknown Completed [facility] of Dosage [facility] HIB 4 Dose Schedule Unknown Completed Unive rsity [facility] HIB 4 Dose Schedule Unknown [facility] Completed [facility] IPV Unknown Completed [facility] IPV Unknown Completed [facility] Poliovirus, Live, Unknown Completed [facility] Oral, Trivalent [facility] Poliovirus, Live, Unknown Completed [facility] Oral, Trivalent [facility] Tetanus/Diptheria Unknown Completed [facility] HPV Unknown Completed [facility] Meningococcal Unknown Completed [facility] Polysaccharide [facility] (groups A, C, Y and Branc h W-135) conjugate vaccine (MCV4P) TDAP (ADACEL) Unknown Completed [facility] Influenza Virus Unknown Completed [facility] Vaccine Quad .5 mL [facility] IM 6+ [place] [facility] (FLUZONE/FLULAVAL/FL UARIX) TDAP (ADACEL) Unknown Completed [facility] TDAP (ADACEL) Unknown Completed [facility] Influenza Virus Unknown Completed [facility] Vaccine Quad .5 mL [facility] IM 6+ [place] [facility] (FLUZONE/FLULAVAL/FL UARIX) HPV Unknown Completed [facility] Meningococcal Unknown Completed [facility] (groups A, C, Y and Branc h W-135) conjugate vaccine (MCV4P) Varicella Unknown Completed [facility] (varivax)(chicken [place] [facility] pox) [place] SARS-COV-2 COVID-19 Unknown Completed [facility] of VACCINE - (MODERNA) [facility] DTaP, Unspecified Unknown Completed [facility] Formulation [facility] DTaP, Unspecified Unknown Completed [facility] Formulation [facility] DTaP, Unspecified Unknown Completed [facility] Formulation [facility] DTaP, Unspecified Unknown Completed [facility] Formulation [facility] HEPATITIS A Unknown Completed [facility] Hep B, Adol or Pedi Unknown Completed [facility] Dosage [facility] Hep B, Adol or Pedi Unknown Completed [facility] Dosage [facility] HIB 4 Dose Schedule Unknown Completed [facility]ive rs[facility] HIB 4 Dose Schedule Unknown [facility] Completed [facility] IPV Unknown Completed [facility] IPV Unknown Completed [facility] Poliovirus, Live, Unknown Completed [facility] Oral, Trivalent [place] [facility] Poliovirus, Live, Unknown Completed Univers ity of Oral, Trivalent [facility] ical Branch Tetanus/Diptheria Unknown Completed [facility] ity [facility] Vital Signs Vital Name Observation Time Observation Value Comments Source Heart rate 2023-06-14 20:00:00 63 /min Universi ty of [facility] Oxygen saturation in 2023-06-14 20:00:00 100 /min University of Arterial blood by [place] [employer] Pulse oximetry Branch Systolic blood 2023-06-14 18:02:00 112 mm[Hg] Univer sity of pressure [facility] Diastolic blood 2023-06-14 18:02:00 58 mm[Hg] Unive rsity of [facility] Body temperature 2023-06-14 18:02:00 36.89 Roselia [facility] Respiratory rate 2023-06-14 18:02:00 16 /min [facility] Body height 2023-06-14 17:49:00 165.1 cm [facility] Body weight 2023-06-14 17:49:00 93.35 kg [facility] BMI 2023-06-14 17:49:00 34.25 kg/m2 Universi ty of [facility] Systolic blood 2023-05-03 22:46:00 117 mm[Hg] Univer sity of pressure [facility] Diastolic blood 2023-05-03 22:46:00 70 mm[Hg] Unive rsity of [facility] Heart rate 2023-05-03 22:46:00 94 /min Universi ty of [facility] Body temperature 2023-05-03 22:46:00 36.67 Roselia [facility] Respiratory rate 2023-05-03 22:46:00 18 /min [facility] Oxygen saturation in 2023-05-03 22:46:00 99 /min University of Arterial blood by [employer] Pulse oximetry Branch Heart rate 2023-04-18 21:00:00 77 /min Universi ty of [facility] Oxygen saturation in 2023-04-18 21:00:00 100 /min [facility] Arterial blood by [facility] Pulse oximetry Branch Systolic blood 2023-04-18 20:00:00 138 mm[Hg] Univer sity of pressure [facility] Diastolic blood 2023-04-18 20:00:00 75 mm[Hg] Unive rsity of pressure [facility] Body temperature 2023-04-18 17:42:00 37.33 Roselia Univ ersity of [facility] Respiratory rate 2023-04-18 17:42:00 16 /min Univ ersity of [facility] Body height 2023-04-18 17:42:00 165.1 cm [facility]i ty [facility] Body weight 2023-04-18 17:42:00 92.987 kg [facility]i [facility] BMI 2023-04-18 17:42:00 34.11 kg/m2 Universi ty of [facility] Systolic blood 2023-04-02 13:43:00 122 mm[Hg] Univer sity of pressure [facility] Diastolic blood 2023-04-02 13:43:00 62 mm[Hg] Unive rsity of [facility] Heart rate 2023-04-02 13:43:00 98 /min [facility]i ty [facility] Body temperature 2023-04-02 13:43:00 36.61 Roselia Univ ersity of [facility] Respiratory rate 2023-04-02 13:43:00 18 /min Univ ersity of [facility] Body height 2023-04-02 13:43:00 165.1 cm [facility]i ty [facility] Body weight 2023-04-02 13:43:00 94.575 kg [facility]i [facility] BMI 2023-04-02 13:43:00 34.70 kg/m2 [facility] Systolic blood 2023-03-11 18:08:00 119 mm[Hg] Univer sity of [facility] Diastolic blood 2023-03-11 18:08:00 68 mm[Hg] Unive rsity of [facility] Heart rate 2023-03-11 18:08:00 87 /min Universi ty of [facility] Body temperature 2023-03-11 18:08:00 36.78 Roselia Univ ersity of [facility] Respiratory rate 2023-03-11 18:08:00 18 /min Univ ersity of [facility] Body height 2023-03-11 18:08:00 165.1 cm Universi ty [facility] Body weight 2023-03-11 18:08:00 93.044 kg [facility]i [facility] BMI 2023-03-11 18:08:00 34.13 kg/m2 [facility]i [facility] Systolic blood 2023-02-11 18:05:00 112 mm[Hg] Univer sity of [facility] Diastolic blood 2023-02-11 18:05:00 64 mm[Hg] Unive rsity of pressure [facility] Heart rate 2023-02-11 18:05:00 73 /min Universi ty of [facility] Body temperature 2023-02-11 18:05:00 36.78 Roselia Univ ersity of [facility] Respiratory rate 2023-02-11 18:05:00 18 /min Univ ersity of [facility] Body height 2023-02-11 18:05:00 165.1 cm Universi ty [facility] Body weight 2023-02-11 18:05:00 88.508 kg [facility]i [facility] BMI 2023-02-11 18:05:00 32.47 kg/m2 Universi ty of [facility] Systolic blood 2022-01-17 03:00:00 119 mm[Hg] Univer sity of pressure [facility] Diastolic blood 2022-01-17 03:00:00 62 mm[Hg] Unive rsity of pressure [facility] Heart rate 2022-01-17 03:00:00 68 /min Universi ty [facility] Respiratory rate 2022-01-17 03:00:00 16 /min Univ ersity of [facility] Oxygen saturation in 2022-01-17 03:00:00 100 /min [facility] Arterial blood by [facility] Pulse oximetry [place] Body temperature 2022-01-17 02:03:00 37.28 Roselia Univ ersity of [facility] Body height 2022-01-17 02:03:00 165.1 cm [facility] [place] Body weight 2022-01-17 02:03:00 90.719 kg [facility] BMI 2022-01-17 02:03:00 33.28 kg/m2 [facility] ty [facility] Systolic blood 2019-05-27 20:39:00 107 mm[Hg] Univer sity of [facility] Diastolic blood 2019-05-27 20:39:00 63 mm[Hg] Unive rsity of [facility] Heart rate 2019-05-27 20:39:00 77 /min Universi ty of [facility] Body temperature 2019-05-27 20:39:00 36.94 Roselia Univ ersity of [facility] Respiratory rate 2019-05-27 20:39:00 18 /min Univ ersity of [facility] Body height 2019-05-27 20:39:00 165.1 cm [facility]i ty [facility] Body weight 2019-05-27 20:39:00 98.431 kg [facility]i ty [facility] BMI 2019-05-27 20:39:00 36.11 kg/m2 [facility] Systolic blood 2019-05-27 20:39:00 107 mm[Hg] Univer sity of pressure [facility] Diastolic blood 2019-05-27 20:39:00 63 mm[Hg] Unive rsity of pressure [facility] Heart rate 2019-05-27 20:39:00 77 /min Universi ty [facility] Body temperature 2019-05-27 20:39:00 36.94 Roselia Univ ersity of [facility] Respiratory rate 2019-05-27 20:39:00 18 /min Univ ersity of [facility] Body height 2019-05-27 20:39:00 165.1 cm [facility]i ty [facility] Body weight 2019-05-27 20:39:00 98.431 kg [facility] ty [facility] BMI 2019-05-27 20:39:00 36.11 kg/m2 [facility]i ty [facility] Systolic blood 2019-05-17 21:39:00 114 mm[Hg] Univer sity of pressure [facility] Diastolic blood 2019-05-17 21:39:00 71 mm[Hg] Unive rsity of pressure [facility] Heart rate 2019-05-17 21:39:00 103 /min Universi ty of [facility] Body temperature 2019-05-17 21:39:00 37.11 Roselia Univ ersity of [facility] Respiratory rate 2019-05-17 21:39:00 18 /min Univ ersity of [facility] Body height 2019-05-17 21:39:00 165.1 cm [facility]i ty [facility] Body weight 2019-05-17 21:39:00 100.154 kg [facility] BMI 2019-05-17 21:39:00 36.74 kg/m2 [facility] ty [facility] Systolic blood 2019-05-17 21:39:00 114 mm[Hg] Univer sity of pressure [facility] Diastolic blood 2019-05-17 21:39:00 71 mm[Hg] Unive rsity of pressure [facility] Heart rate 2019-05-17 21:39:00 103 /min Universi ty of [facility] Body temperature 2019-05-17 21:39:00 37.11 Roselia Univ ersity of [facility] Respiratory rate 2019-05-17 21:39:00 18 /min Univ ersity of [facility] Body height 2019-05-17 21:39:00 165.1 cm Universi ty [facility] Body weight 2019-05-17 21:39:00 100.154 kg [facility] ty [facility] BMI 2019-05-17 21:39:00 36.74 kg/m2 [facility] ty [facility] Systolic blood 2019-05-04 18:09:00 135 mm[Hg] Univer sity of pressure [facility] Diastolic blood 2019-05-04 18:09:00 68 mm[Hg] Unive rsity of pressure [facility] Heart rate 2019-05-04 18:09:00 96 /min [facility]i ty [facility] [place] Body temperature 2019-05-04 18:09:00 36.78 Roselia Univ ersity of [facility] Respiratory rate 2019-05-04 18:09:00 22 /min [facility] Oxygen saturation in 2019-05-04 18:09:00 100 /min [facility] Arterial blood by [facility] Pulse oximetry Branch Systolic blood 2019-04-29 21:00:00 127 mm[Hg] Univer sity of [facility] [place] Diastolic blood 2019-04-29 21:00:00 68 mm[Hg] Unive rsity of pressure [facility] Heart rate 2019-04-29 21:00:00 87 /min [facility] Body temperature 2019-04-29 21:00:00 36.39 Roselia [facility] Respiratory rate 2019-04-29 21:00:00 20 /min [facility] Body height 2019-04-29 21:00:00 165.1 cm [facility] Body weight 2019-04-29 21:00:00 98.431 kg [facility] BMI 2019-04-29 21:00:00 36.11 kg/m2 [facility] Procedures Procedure Date / Time Performing Clinician Source Performed US PELVIS > 14 2023-06-14 20:12:00 Kory [facility] 2023-06-14 18:55:00 Kory Cruz [place] [facility] ADC ONLY - FERN TEST 2023-06-14 18:55:00 Kory Crzu [facility] ASSIGNMENT OF BENEFITS 2023-06-14 17:37:47 Doctor Unassigned, No [facility] CONSENT/REFUSAL FOR 2023-06-14 17:36:34 Doctor Unassigned, No [facility] SECOND AND THIRD 2023-05-28 21:05:00 Krystal Velasco [facility] TRIMESTER ULTRASOUND Medical [facility] SECOND AND THIRD 2023-05-28 20:25:00 Krystal Velasco [facility] TRIMESTER ULTRASOUND Medical [facility] URINE DRUG (IMMUNOASSAY) 2023-04-18 18:48:00 Rosalie Wilkinson [facility] - COMPREHENSIVE DRUG Medical [facility] SCREEN ADC CLC OR LCC ONLY - 2023-04-18 18:48:00 Ariela Wilkinson [facility] PREP [facility] CONSENT/REFUSAL FOR 2023-04-18 16:42:47 Doctor Unassigned, No [facility] AND [facility] POCT URINALYSIS 2023-04-02 13:44:00 Krystal Velasco [facility] EXTERNAL PROVIDER 2023-03-21 05:01:00 Doctor Unassigned, No [facility] RECORDS [facility] POCT URINALYSIS 2023-03-11 18:00:00 Krystal Velasco [facility] AUTHORIZATION FOR 2023-03-11 05:01:00 Doctor Unassigned, No [facility] RELEASE OF [facility] POCT URINALYSIS W/O 2023-02-11 18:03:00 Krystal Velasco [facility] SPECIFIC GRAVITY [facility] POCT TEST 2023-02-11 18:02:00 Krystal Velasco [facility] REPORT OF 2023-02-11 05:01:00 Doctor Unassigned, No [facility] LIPASE 2022-01-17 03:09:[address] [facility] COMP. METABOLIC PANEL 2022-01-17 03:09:00 Yvonne Siddiqi [facility] ([id number]) [facility] CBC WITH DIFF 2022-01-17 03:09:[address] [facility] POCT TEST 2022-01-17 02:14:00 Abraham Weiner [facility] URINALYSIS 2022-01-17 02:10:[address] [facility] NOTICE OF PRIVACY 2022-01-17 01:36:28 Doctor Unassigned, No [facility] CONSENT/REFUSAL FOR 2022-01-17 01:36:18 Doctor Unassigned, No [facility]REATMENT [facility] TDAP (ADACEL) 2019-05-27 20:41:37 Josy Chaudhary [facility] IMMUNIZATION [facility] US ABDOMEN LIMITED 2019-05-17 22:45:16 Josy Chaudhary [facility] ASSIGNMENT OF BENEFITS 2019-05-17 22:12:10 Doctor Unassigned, No [facility] URINALYSIS 2019-05-04 18:55:[address] [facility] ADC CLC OR LCC ONLY - 2019-05-04 18:55:00 Kory Cruz [facility] WET [facility] ADC ONLY - FERN TEST 2019-05-04 18:54:00 Kory Cruz [facility] ity of [facility] CONSENT/REFUSAL FOR 2019-05-04 17:47:16 Doctor Unassigned, No Un [facility] DIAGNOSIS AND TREATMENT Name Medical Branch Encounters Start End Encounter Admission Attending Care Care Encounter Source Date/Time Date/Time Type Type Clinicians Facility Department ID 2023-04-18 Outpatient X [facility] DERRICK [id number] Univers 17:24:48 ity of [facility] 2022-08-02 Emergency HFD HFD [id number] SANDOVAL - 05:16:57 [facility] ent 2021-07-08 Outpatient [facility] [id number] [facility] 14:21:14 [id number] [facility] 2023-06-14 2023-06-14 Outpatient X KORY CRUZ [facility] DERRICK [id number] Univers 12:51:00 15:30:00 ity of [facility] 2023-06-14 2023-06-14 Emergency Kory Cruz [facility] 1.2.840.114 [id number] Univers 12:51:00 15:30:00 Pedro POPE 350.1.13.10 i [facility] 4.2.7.2.686 [place] [facility] [phone] [facility] 083 Branch 2023-06-14 2023-06-14 Nurse MAY Christianson 1.2.840.114 [id number] Univers 00:00:00 00:00:00 Triage Chessica T ZACKERY 350.1.13.10 ity of [facility] 4.2.7.2.686 Juan as [phone] [facility] 019 Branch 2023-06-14 2023-06-14 Orders Doctor MAY 1.2.840.114 [id number] Univers 00:00:00 00:00:00 Only Unassigned, ZACKERY 350.1.13.10 ity of [place] [facility] 4.2.7.2.686 Juan as [phone] [facility] 009 Branch 2023-06-03 2023-06-03 Telephone Kelly KYMALLORIE 1.2.840.114 [id number] Univers 00:00:00 00:00:00 Huy Rg 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13.10 ity of [facility] 4.2.7.2.686 Juan as MATERNAL [phone] [facility] ical & CHILD [address] [place] [facility] 2023-06-02 2023-06-02 Outpatient R KELLY [facility] [id number] Univers 15:30:00 15:30:00 HUY dennison [facility] 2023-05-30 2023-05-30 [facility] 1.2.840.114 [id number] Univers 00:00:00 00:00:00 Management Krystal A 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13.10 ity of REGIONAL 4.2.7.2.686 Juan as MATERNAL [id number] [facility] & CHILD [address] [place] [address] 2023-05-28 2023-05-28 Outpatient P HEBERT [facility] [id number] Univers 14:00:00 15:19:04 ROXY it y of S, ROSA [facility] 2023-05-28 2023-05-28 [place] [facility] 1.2 .840.114 [id number] Univers 14:00:00 15:19:04 Visit Banuelos Shelley Daniels 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 13.10 ity of REGIONAL 4.2.7.2.686 Juan as MATERNAL [phone] [facility] [address] [place] [facility] 2023-05-21 2023-05-21 Refill [facility] 1.2.840.114 [id number] Univers 00:00:00 00:00:00 Krystal A 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13.10 i ty of REGIONAL 4.2.7.2.686 Juan as MATERNAL [id number] [facility] ical & CHILD [address] [place] [address] 2023-05-21 2023-05-21 Telephone [facility] 1.2.840.114 [id number] Univers 00:00:00 00:00:00 Krystal A 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13.10 i ty of REGIONAL 4.2.7.2.686 Juan as MATERNAL [id number] [facility] ical & CHILD [address] [place] [address] 2023-05-20 2023-05-20 Outpatient R KELLY, [facility] [id number] Univers 15:30:00 15:30:00 HUY franco o f [facility] 2023-05-16 2023-05-16 [facility] [id number] Univers 09:45:00 09:45:00 KRYSTAL [facility] 2023-05-03 2023-05-03 Outpatient X ARIELA WILKINSON [facility] O BY [id number] Univers 17:42:00 18:57:00 [facility] 2023-05-03 2023-05-03 Emergency Selena [facility] 1.2.840.114 [id number] Univers 17:42:00 18:57:00 Ariela vee 350.1.13.10 ity [facility] 4.2.7.2.686 [place] [id number] [address] 2023-04-30 2023-04-30 [facility] [id number] Univers 10:45:00 10:45:00 [facility] 2023-04-18 2023-04-18 Outpatient X ARIELA WILKINSON [facility] O BY [id number] Univers 12:18:00 16:05:00 ARIELA WILKINSON [facility] 2023-04-18 2023-04-18 Emergency Selena [facility] 1.2.840.114 [id number] Univers 12:18:00 16:05:00 sAriela 350.1.13.10 ity [facility] 4.2.7.2.[place] [id number] [address] 2023-04-17 2023-04-17 Telephone [facility] 1.2.840.114 [id number] Univers 00:00:00 00:00:00 Krystal Sears 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13.10 i ty of [facility] 4.2.7.2.686 Juan as MATERNAL [id number] [facility] ical & CHILD [address] [place] [address] 2023-04-17 2023-04-17 Patient [facility] 1.2.840.114 [id number] Univers 00:00:00 00:00:00 Secure Msg Krystal A 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13.10 ity of REGIONAL 4.2.7.2.686 Juan as MATERNAL [id number] [facility] [address] [place] [address] 2023-04-08 2023-04-08 Outpatient [facility] [id number] Univers 12:45:00 12:45:00 KRYSTAL ity of [facility] 2023-04-07 2023-04-07 Case [facility] 1.2.840.114 [id number] Univers 00:00:00 00:00:00 Management Krystal A 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13.10 ity of REGIONAL 4.2.7.2.686 Juan as MATERNAL [id number] [facility] & [address] 2023-04-03 2023-04-03 Outpatient [facility] [id number] Univers 10:30:00 10:30:00 KRYSTAL ity [facility] 2023-04-03 2023-04-03 Refill [facility] 1.2.840.114 [id number] Univers 00:00:00 00:00:00 Krystal A 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13.10 i ty of REGIONAL 4.2.7.2.686 Juan as MATERNAL [id number] [facility] & CHILD [address] [place] [address] 2023-04-02 2023-04-02 Outpatient [facility] [id number] Univers 08:45:00 09:15:48 KRYSTAL ity [facility] 2023-04-02 2023-04-02 Routine [facility] 1.2.840.114 [id number] Univers 08:45:00 09:15:48 Krystal A 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13.10 ity of Visit REGIONAL 4.2.7.2.686 Juan as MATERNAL [id number] [facility] CHILD [address] [place] [address] 2023-03-21 2023-03-21 [facility] 1.2.840.114 [id number] Univers 00:00:00 00:00:00 Management Krystal A 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13.10 ity of REGIONAL 4.2.7.2.686 Juan as MATERNAL [id number] [facility] [address] [place] [address] 2023-03-21 2023-03-21 Orders Doctor MAY 1.2.840.114 [id number] Univers 00:00:00 00:00:00 Only Unassigned, ZACKERY 350.1.13.10 ity of [place] [facility] 4.2.7.2.686 Juan as [id number] [address] 2023-03-19 2023-03-[address] [facility] 1.2.840.114 [id number] Univers 00:00:00 00:00:00 Krystal A 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13.10 i ty of REGIONAL 4.2.7.2.686 Juan as MATERNAL [id number] [facility] & CHILD [address] [place] [address] 2023-03-11 2023-03-11 [facility] [id number] Univers 12:45:00 13:26:33 KRYSTAL ity of [facility] 2023-03-11 2023-03-[address] [facility] 1.2.840.114 [id number] Univers 12:45:00 13:26:33 Krystal A 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13.10 ity of Visit REGIONAL 4.2.7.2.686 Juan as MATERNAL [id number] [facility] CHILD [address] [place] [address] 2023-03-11 2023-03-11 Orders Doctor MAY 1.2.840.114 [id number] Univers 00:00:00 00:00:00 Only Unassigned, ZACKERY 350.1.13.10 ity of [place] [facility] 4.2.7.2.686 Juan as [id number] [address] 2023-02-18 2023-02-[address] [facility] 1.2.840.114 [id number] Univers 00:00:00 00:00:00 Krystal A 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13.10 i ty of REGIONAL 4.2.7.2.686 Juan as MATERNAL [id number] [facility] [address] [place] [address] 2023-02-14 2023-02-14 Case [facility] 1.2.840.114 [id number] Univers 00:00:00 00:00:00 Management Krystal A 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13.10 ity of REGIONAL 4.2.7.2.686 Juan as MATERNAL [id number] [facility] & CHILD [address] [place] [address] 2023-02-14 2023-02-[address] [facility] 1.2.840.114 [id number] Univers 00:00:00 00:00:00 Krystal A 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13.10 i ty of [facility] 4.2.7.2.686 Juan as MATERNAL [id number] [facility] & CHILD [address] [place] [address] 2023-02-11 2023-02-[address] [facility] 1.2.840.114 [id number] Univers 13:00:00 14:23:32 Krystal A 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13.10 ity of Visit REGIONAL 4.2.7.2.686 Juan as MATERNAL [id number] [facility] & CHILD [address] [place] [address] 2023-02-11 2023-02-11 Outpatient R MARANDA [facility] [id number] Univers 12:30:00 13:21:27 KRYSTAL ity of [facility] 2023-02-11 2023-02-11 Orders Doctor MAY 1.2.840.114 [id number] Univers 00:00:00 00:00:00 Only Unassigned, ZACKERY 350.1.13.10 ity of [place] [facility] 4.2.7.2.686 Juan as [id number] [address] 2023-02-10 2023-02-10 Outpatient R KELLY [facility] [id number] Univers 08:30:00 08:30:00 HUY portilloasif o f [facility] 2022-08-02 2022-08-02 Emergency E LEEROY DENG [facility] [id number] [facility] 04:26:00 11:34:00 2022-01-16 2022-01-17 Emergency X [facility] ERT [id number] Univers 21:05:00 00:11:00 YVONNE ity of [facility] 2022-01-16 2022-01-17 Emergency [facility] [id number] [id number] Univers 21:05:00 00:11:00 Yvonne POPE 350.1.13.10 i ty of [place]2.7.2.686 [place] [id number] [address] 2021-07-25 2021-07-25 Patient Doctor MAY 1.2.840.114 [id number] Univers 00:00:00 00:00:00 Secure Msg Unassigned, ZACKERY 350.1.13.10 ity of [facility] 4.2.7.2.686 Juan as [id number] [facility] [address] [place] 2021-04-19 2021-04-19 Outpatient R KELLY [facility] [id number] [facility] 13:15:00 13:15:00 HUY franco o f [facility] 2021-02-06 2021-02-06 Case SimiSummer 1.2.840.114 [id number] 00:00:00 00:00:00 Management Jennifer Harrell 350.1.13.10 [place] 4.2.7.2.686 [id number] [facility] 2021-02-06 2021-02-06 Case Alethakelsie Larryjatin 1.2.840.114 [id number] Univers 00:00:00 00:00:00 Management Jennifer Harrell 350.1.13.10 ity of [place]7.2.[place] [id number] [address] 2020-12-12 2020-12-12 Patient Geronimo [facility] 1.2.840.114 [id number] 00:00:00 00:00:00 Outreach Broderick PRIMARY 350.1.13.10 [facility] 4.2.7.2.686 PAVILLION [id number] 2020-12-12 2020-12-12 Patient [facility] 1.2.840.114 [id number] Univers 00:00:00 00:00:00 Outreach [place] PRIMARY [id number] [place] [phone] [place] dic[address] 2020-02-28 2020-02-28 [facility] [id number] Univers 15:00:00 15:00:00 JOSY [facility] 2019-12-18 2019-12-18 Outpatient R [facility] [id number] Univers 17:30:00 17:30:00 KRISSY [facility] 2019-11-18 2019-11-18 [facility] [id number] Univers 14:30:00 14:30:00 JOSY [facility] 2019-05-27 2019-05-27 Routine [facility] [id number] 14:41:30 15:54:53 Josy Pope 350.1.13.10 Visit [place] 4.2.7.2.686 Professio [phone] [address] 2019-05-27 2019-05-27 [facility] [id number] Univers 14:41:30 15:54:53 Josy Pope 350.1.13.10 ity of [place] [phone] [place] dical [place]al 134 [facility] 2019-05-17 2019-05-17 [facility] 1.2.840.114 [id number] Univers 17:15:00 23:59:00 Encounter Josy Pope 350.1.13.10 it[place] [phone] [facility] [address] 2019-05-17 2019-05-17 [place] 1, [facility] [place] 1.2.840.114 [id number] Univers 17:21:30 17:36:30 Visit Kory Cruz Pedro Pope 350.1.13.10 it[place] [phone] [address] 2019-05-17 2019-05-17 Office BRENDA Chaudhary [id number] 15:55:01 16:56:25 Visit Josy Pope 350.1.13.10 [place] 4.2.7.2.686 Professio [phone] [address] 2019-05-17 2019-05-17 Office Neena [facility] [id number] Univers 15:55:01 16:56:25 Visit Josy Pope 350.1.13.10 i ty of [place] [phone] [facility] 2019-05-17 2019-05-17 Orders Doctor MAY 1.2.840.114 [id number] Univers 00:00:00 00:00:00 Only Unassigned, ZACKERY 350.1.13.10 ity of [place] [facility] 4.2.7.2.686 Juan as [phone] [address] 2019-05-05 2019-05-05 Telephone Neena [facility] 1.2.840.114 [id number] Univers 00:00:00 00:00:00 Josy Pope 350.1.13.10 i [place] [phone] [place] dical [facility] 134 [facility] 2019-05-04 2019-05-04 [place] [employer] 1, Adc Lab [facility] 1.2.840.114 [id number] Univers 15:07:01 15:22:01 Visit Kory Cruz Pedro Pope 350.1.13.10 ity of [place] [phone] [address] 2019-05-04 2019-05-04 Hospital Miky Kory [facility] 1.2.840.114 [id number] Univers 12:48:00 14:57:00 Encounter Pedro Pope 350.1.13.10 ity of [place] [phone] [facility] [address] 2019-05-04 2019-05-04 [facility]phone [facility] 1.2.840.114 [id number] Univers 00:00:00 00:00:00 Josy [place] 350.1.13.10 i ty of [place] [phone] [place] dical nal 134 [facility] 2019-05-04 2019-05-04 Orders Doctor MAY 1.2.840.114 [id number] Univers 00:00:00 00:00:00 Only Unassigned, ZACKERY 350.1.13.10 ity of [place] [facility] 4.2.7.2.686 Juan as [phone] [facility] [address] 2019-04-30 2019-04-30 [facility] [id number] Univers 00:00:00 00:00:00 Management [facility] 350.1.13.10 ity of Surgical 4.2.7.2.686 Juan as Specialti [phone] [place] dical es 370 [facility] 2019-04-29 2019-04-29 Routine Cruz, Kory [facility] [id number] Univers 15:40:17 16:18:51 Pedro Pope 350.1.13.10 ity of Visit [place] [phone] [place] dical nal 134 [facility] Results Test Description Test Time Test Comments Results Result Comments Source POCT URINALYSIS W SPECIFIC GRAVITY 2023-04-02 13:44:00 Test Item Value Reference Range Interpretation Comme nts POCT U SP GRAV (test code = 3255) . 1.005-1.025 POCT PH U (test code = 3254) 8 mg/dl 5-8 POCT U LEUK EST (test code = 3263) Neg Negative - Negative POCT U NIT (test code = 3262) Neg Negative - Negative POCT U PROT (test code = 3259) Trace Negative - Negative POCT U GLU (test code = 3256) Neg Negative - Negative POCT U KETONE (test code = 3258) None Negative - Negative POCT U UROBILI (test code = 3260) . 0.2-1 POCT U BILI (test code = 3261) . Negative - Negative POCT U BLD (test code = 3257) Trace Negative - Negative POCT U COLOR (test code = 3266) . POCT U APPEAR (test code = 3267) [facility] URINALYSIS W SPECIFIC [id number] 18:00:00 Test Item Value Reference Range Interpretation Comments POCT U SP GRAV (test code = 3255) . 1.005-1.025 POCT PH U (test code = 3254) 8 mg/dl 5-8 POCT U LEUK EST (test code = Trace Negative - Negative 3263) POCT U NIT (test code = 3262) Neg Negative - Negative POCT U PROT (test code = 3259) Trace Negative - Negative POCT U GLU (test code = 3256) Neg Negative - Negative POCT U KETONE (test code = 3258) None Negative - Negative POCT U UROBILI (test code = 3260) . 0.2-1 POCT U BILI (test code = 3261) . Negative - Negative POCT U BLD (test code = 3257) Trace Negative - Negative POCT U COLOR (test code = 3266) POCT U APPEAR (test code = 3267) [facility] URINALYSIS W/O SPECIFIC [id number] 18:03:00 Test Item Value Reference Range Interpretation Comments POCT PH U (test code = 3254) 8 mg/dl 5-8 POCT U LEUK EST (test code = Trace Negative - Negative 3263) POCT U NIT (test code = 3262) Neg Negative - Negative POCT U PROT (test code = 3259) Trace Negative - Negative POCT U GLU (test code = 3256) Neg Negative - Negative POCT U KETONE (test code = 3258) 2+ Negative - Negative POCT U BLD (test code = 3257) [id number] 18:02:00 Test Item Value Reference Range Interpretation Comments POCT PREG (test code = 1605) Positive On board controls acceptable with C Yes Line (test code = 357) POCT PREG LOT # (test code = 3579) POCT PREG TEST DATE (test code = 3576) [facility] ([id number])2022-01-17 03:31:19 Test Item Value Reference Range Interpretation Comments NA (test code = 139 mmol/L 135-145 6069392407) K (test code = 4.2 mmol/L 3.5-5.0 8139364793) CL (test code = 105 mmol/L 98-108 7684069886) CO2 TOTAL (test code = 23 mmol/L 23-31 6246204233) AGAP (test code = 2-16 0943166706) BUN (test code = 9 mg/dL 7-23 0336836862) GLUCOSE (test code = 94 mg/dL 70-110 8786227681) CREATININE (test code = 0.61 mg/dL 0.50-1.04 1576263240) TOTAL BILI (test code = 0.9 mg/dL 0.1-1.9 8706375522) CALCIUM (test code = 9.4 mg/dL 8.6-10.6 8146052121) T PROTEIN (test code = 8.3 g/dL 6.3-8.2 H 8883380809) ALBUMIN (test code = 4.7 g/dL 3.5-5.0 9330929403) ALK PHOS (test code = 87 U/L 34-122 7329114592) ALTv (test code = 11 U/L 5-35 1742-6) AST(SGOT) (test code = 19 U/L 13-40 0664406127) eGFR (test code = mL/min/1.73m2 2757885531) TIERRA (test code = TIERRA) Association of [...] tests). Lab Interpretation Abnormal (test code = 96428-2) [facility] 03:31:19 Test Item Value Reference Range Interpretation Comments LIPASE (test code = 1734826053) 68 U/L 0-220 Lab Interpretation (test code = Normal 88814-5) [facility] WITH [id number] 03:28:58 Test Item Value Reference Range Interpretation Comments WBC (test code = See_Comment [Automated 4601-2) message] The sy stem which generated this result transmitted reference range : 4.30 - 11.10 10*3/?L. The reference range was not used to interpret this result as normal/abnormal . RBC (test code = See_Comment [Automated 476-8) message] The sy stem which generated this [...] RDW-SD (test code = 43.8 fL 39.0-49.9 12197-3) RDW-CV (test code = 15.2 % 12.0-15.5 788-0) PLT (test code = See_Comment [Automated 777-3) message] The sy stem which generated this result transmitted reference range : 166 - 358 10*3/ ?L. The reference r suzi was not used to interpret this result as normal/abnormal . MPV (test code = 11.3 fL 9.5-12.9 24440-8) NRBC/100 WBC (test See_Comment [Automat ed code = 5336317392) message] The system which generated this result transmitted reference range : 0.0 - 10.0 /100 WBCs. The refer ence range was not u sed to interpret th is result as normal/abnormal . NRBC x10^3 (test code <0.01 See_Comment [Auto mated = 1925426543) message] The s ystem which generated this result transmitted reference range : 10*3/?L. The reference range was not used to interpret this result as normal/abnormal . GRAN MAT (NEUT) % 71.7 % (test code = 770-8) IMM GRAN % (test code 0.20 % = 1913786892) LYMPH % (test code = 22.5 % 736-9) MONO % (test code = 4.2 % 5905-5) EOS % (test code = 0.8 % 713-8) BASO % (test code = 0.6 % 706-2) GRAN MAT x10^3(ANC) 6.26 10*3/uL 1.88-7.09 (test code = 4007750335) IMM GRAN x10^3 (test <0.03 0.00-0.06 code = 3364991428) LYMPH x10^3 (test code 1.96 10*3/uL 1.32-3.29 = 731-0) MONO x10^3 (test code 0.37 10*3/uL 0.33-0.92 = 742-7) EOS x10^3 (test code = 0.07 10*3/uL 0.03-0.39 711-2) BASO x10^3 (test code 0.05 10*3/uL 0.01-0.07 = 704-7) Lab Interpretation Abnormal (test code = 70148-3) [facility] [id number] 02:14:00 Test Item Value Reference Range Interpretation Comments POCT PREG (test code = 1605) negative On board controls acceptable with present C Line (test code = 3574) POCT PREG LOT # (test code = 3575) [id number] POCT PREG TEST DATE (test 06/21/2023 code = 3576) Lab Interpretation (test code = Normal 23170-6) [facility] ABDOMEN [id number] 23:14:22 Cholelithiasis with no evidence of acute [...] report.[facility]2019-08-13 19:31:00 Test Item Value Reference Range Interpretation Comments APPEARANCE (test code Slightly Cloudy Clear A = 4080120763) COLOR (test code = Yellow Yellow 5343555015) PH (test code = 4.8-8.0 3678661329) SP GRAVITY (test code <=1.005 1.003-1.030 = 6178390971) GLU U QUAL (test code Negative Negative = 5281438329) BLOOD (test code = Negative Negative 9740077515) KETONES (test code = Negative Negative 9050164509) PROTEIN (test code = Negative Negative 2887-8) UROBILIN (test code = 0.2 mg/dL See_Comment [Auto mated 1545604126) message] The system which generated this result transmit refugio reference range : 0-1.0 mg/dL. Th e reference range was not used to interpret this result as normal/abnormal . BILIRUBIN (test code Negative Negative = 3350419293) NITRITE (test code = Negative Negative 4456852730) LEUK SUMMER (test code Large Negative A = 3436823125) RBC/HPF (test code = See_Comment [Autom ated 0186589794) message] The system which generated this result transmit refugio reference range : 0 - 3 HPF. The reference range was not used to interpret this result as normal/abnormal . WBC/HPF (test code = See_Comment H [Autom ated 3719391456) message] The system which generated this result transmit refugio reference range : 0 - 5 HPF. The reference range was not used to interpret this result as normal/abnormal . BACTERIA (test code = Moderate Negative A 2180234950) SQ EPITH (test code = HPF 1302265786) Lab Interpretation Abnormal (test code = 21486-3) [facility] OR [facility] ONLY - WET [id number] 19:28:00 Test Item Value Reference Range Interpretation Comments Wet Prep (test code No Trichomonas vaginalis = 6931083160) present [facility] ONLY - FERN [id number] 19:24:00 Test Item Value Reference Range Interpretation Comments Fern Test (test code = 5613621841) Negative [facility]"
--- NOTE | 2023-06-26 13:51 | ER ---
Nurse's Notes [facility] Name: Arina Valdes Age: 22 yrs Sex: Female : 2000 Arrival Date: 06/26/2023 Time: 13:08 Bed DIS3 Private MD: Diagnosis: Encounter for removal of sutures Presentation: 06/26 13:22 Chief complaint: Patient states: Suture removal to left elbow. Coronavirus screen: At ld1 this time, the client does not indicate any symptoms associated with coronavirus-19. Ebola Screen: No symptoms or risks identified at this time. Initial Sepsis Screen: Does the patient meet any 2 criteria? No. Patient's initial sepsis screen is negative. Does the patient have a suspected source of infection? No. Patient's initial sepsis screen is negative. Risk Assessment: Do you want to hurt yourself or someone else? Patient reports no desire to harm self or others. Onset of symptoms was June 26, 2023. 13:22 Method Of Arrival: Ambulatory ld1 13:22 Acuity: PEYTNO 4 ld1 Triage Assessment: 13:22 General: Appears in no apparent distress. comfortable, Behavior is calm, cooperative, ld1 appropriate for age. Pain: Denies pain. EENT: No signs and/or symptoms were reported regarding the EENT system. Neuro: Level of Consciousness is awake, alert, obeys commands, Oriented to person, place, time, situation. Cardiovascular: Capillary refill < 3 seconds Patient's skin is warm and dry. Respiratory: Airway is patent Respiratory effort is even, unlabored. GI: Abdomen is round non-distended. : No signs and/or symptoms were reported regarding the genitourinary system. Derm: No signs and/or symptoms reported regarding the dermatologic system. Musculoskeletal: No signs and/or symptoms reported regarding the musculoskeletal system. Historical: - Allergies: 13:22 No Known Allergies; ld1 - PMHx: 13: depressive disorder; pre eclampsia; UTI; ld1 - PSHx: 13: None; ld1 - Immunization history:: Adult Immunizations up to date. - Social history:: Smoking status: Patient denies any tobacco usage or history of. Patient/guardian denies using alcohol. - Family history:: not pertinent. Screenin: [facility] ED Fall Risk Assessment (Adult) History of falling in the last 3 months, ld1 including since admission No falls in past 3 months (0 pts). Abuse screen: Denies threats or abuse. Denies injuries from another. Nutritional screening: No deficits noted. Tuberculosis screening: No symptoms or risk factors identified. Assessment: 13:23 Reassessment: See triage assessment. ld1 Vital Signs: 13:22 BP 129 / 76; Pulse 84; Resp 18; Temp 98.1(TE); Pulse Ox 100% on R/A; Weight 83.91 kg; ld1 Height 5 ft. 3 in. ; Pain 0/10; 13:22 Body Mass Index 32.77 (83.91 kg, 160.02 cm) ld1 13:22 Pain Scale: Adult ld1 ED Course: 13:12 Patient arrived in ED. mg5 13:13 Remigio Warner MD is Attending Physician. [facility] 13:22 Triage completed. ld1 13:22 Arm band placed on right wrist. ld1 13:23 Patient has correct armband on for positive identification. Placed in gown. Bed in low ld1 position. Call light in reach. Side rails up X2. Pulse ox on. NIBP on. Door closed. Noise minimized. Warm blanket given. 13:23 No provider procedures requiring assistance completed. Patient did not have IV access ld1 during this emergency room visit. 13:57 Olga Sinclair, RN is Primary Nurse. Administered Medications: No medications were administered Medication: 13:23 VIS not applicable for this client. ld1 Outcome: 13:50 Discharge ordered by . [facility] 13:57 Patient left the ED. iw Signatures: Remigio Warner MD MD cha Williams, Irene, RN RN Kaitlin Rich RN RN ld1 Beatriz Pickard mg5
--- NOTE | 2023-06-26 13:51 | EDPHYS ---
Physician Documentation [facility] Name: Arina Valdes Age: 22 yrs Sex: Female : 2000 Arrival Date: 06/26/2023 Time: 13:08 Bed DIS3 Private MD: ED Physician Remigio Warner HPI: 06/26 13:45 This 22 yrs old Female presents to ER via Ambulatory with complaints of Suture vidya Removal. 13:45 The patient has sutures on the left elbow. vidya Historical: - Allergies: 13:22 No Known Allergies; ld1 - PMHx: 13:22 depressive disorder; pre eclampsia; UTI; ld1 - PSHx: 13:22 None; ld1 - Immunization history:: Adult Immunizations up to date. - Social history:: Smoking status: Patient denies any tobacco usage or history of. Patient/guardian denies using alcohol. - Family history:: not pertinent. ROS: 13:45 Constitutional: Negative for fever, chills, and weight loss, Eyes: Negative for injury, vidya pain, redness, and discharge, ENT: Negative for injury, pain, and discharge, Neck: Negative for injury, pain, and swelling, Cardiovascular: Negative for chest pain, palpitations, and edema, Respiratory: Negative for shortness of breath, cough, wheezing, and pleuritic chest pain, Abdomen/GI: Negative for abdominal pain, nausea, vomiting, diarrhea, and constipation, Back: Negative for injury and pain, : Negative for injury, bleeding, discharge, and swelling, Skin: Negative for injury, rash, and discoloration, Neuro: Negative for headache, weakness, numbness, tingling, and seizure, Psych: Negative for depression, anxiety, suicide ideation, homicidal ideation, and hallucinations, Allergy/Immunology: Negative for hives, rash, and allergies, Endocrine: Negative for neck swelling, polydipsia, polyuria, polyphagia, and marked weight changes, Hematologic/Lymphatic: Negative for swollen nodes, abnormal bleeding, and unusual bruising, 13:45 MS/extremity: Positive for left elbow sututes, Exam: 13:45 Constitutional: This is a well developed, well nourished patient who is awake, alert, vidya and in no acute distress. Head/Face: Normocephalic, atraumatic. Eyes: Pupils equal round and reactive to light, extra-ocular motions intact. Lids and lashes normal. Conjunctiva and sclera are non-icteric and not injected. Cornea within normal limits. Periorbital areas with no swelling, redness, or edema. ENT: Nares patent. No nasal discharge, no septal abnormalities noted. Tympanic membranes are normal and external auditory canals are clear. Oropharynx with no redness, swelling, or masses, exudates, or evidence of obstruction, uvula midline. Mucous membranes moist. Neck: Trachea midline, no thyromegaly or masses palpated, and no cervical lymphadenopathy. Supple, full range of motion without nuchal rigidity, or vertebral point tenderness. No Meningismus. Chest/axilla: Normal chest wall appearance and motion. Nontender with no deformity. No lesions are appreciated. Cardiovascular: Regular rate and rhythm with a normal S1 and S2. No gallops, murmurs, or rubs. Normal PMI, no JVD. No pulse deficits. Respiratory: Lungs have equal breath sounds bilaterally, clear to auscultation and percussion. No rales, rhonchi or wheezes noted. No increased work of breathing, no retractions or nasal flaring. Abdomen/GI: Soft, non-tender, with normal bowel sounds. No distension or tympany. No guarding or rebound. No evidence of tenderness throughout. Back: No spinal tenderness. No costovertebral tenderness. Full range of motion. Skin: Warm, dry with normal turgor. Normal color with no rashes, no lesions, and no evidence of cellulitis. Neuro: Awake and alert, GCS 15, oriented to person, place, time, and situation. Cranial nerves II-XII grossly intact. Motor strength 5/5 in all extremities. Sensory grossly intact. Cerebellar exam normal. Normal gait. Psych: Awake, alert, with orientation to person, place and time. Behavior, mood, and affect are within normal limits. 13:45 Musculoskeletal/extremity: Extremities: grossly normal except: noted in the left elbow: Vital Signs: 13:22 BP 129 / 76; Pulse 84; Resp 18; Temp 98.1(TE); Pulse Ox 100% on R/A; Weight 83.91 kg; ld1 Height 5 ft. 3 in. ; Pain 0/10; 13:22 Body Mass Index 32.77 (83.91 kg, 160.02 cm) ld1 13:22 Pain Scale: Adult ld1 MDM: 13:13 Patient medically screened. [facility] 13:45 Data reviewed: vital signs, nurses notes. I considered the following discharge vidya prescriptions or medication management in the emergency department Medications were administered in the Emergency Department. See MAR. Test considered but Not performed: Labs: no labs. Care significantly affected by the following chronic conditions: depression, uti. 06/26 13:45 Order name: Suture Removal [facility] 06/26 13:45 Order name: Wound dressing [facility] Administered Medications: No medications were administered Disposition Summary: 06/26/23 13:50 Discharge Ordered Notes: Location: Home [facility] Problem: new vidya Symptoms: are resolved vidya Condition: Stable vidya Diagnosis - Encounter for removal of sutures vidya Followup: vidya - With: Private Physician - When: 2 - 3 days - Reason: Recheck today's complaints, Re-evaluation by your physician Discharge Instructions: - Discharge Summary Sheet vidya - Suture Removal, Care After vidya Forms: - Medication Reconciliation Form vidya - Thank You Letter vidya - Antibiotic Education vidya - Prescription Opioid Use vidya - Patient Portal Instructions [facility] - Leadership Thank You Letter [facility] Signatures: Remigio Warner MD MD cha Sims, Lauren, RN RN ld1
[2023-06-26 14:02] VITALS: BP 129/76; TEMP 98.1; O2SAT 100
== END 2023-06-26 13:57 | disposition home or self-care (01) ==
LOC: ER 13:08
DX: Z48.02 Encounter for removal of sutures (principal)
CPT/HCPCS: 99282

== ENCOUNTER 2023-07-27 06:58 | Emergency (ER) | payer OTHER ==
--- OUTSIDE RECORDS SUMMARY | 2023-07-27 07:07 | XMS REPORT | Continuity of Care Document ---
:[address] [facility] t Address [address] [place] [address] Care Team Providers Name Role Phone Krystal Velasco CNM Primary Care Physician [phone] KORY CRUZ Attending Clinician Unavailable Nurse, Suy[facility] Transplant Attending Clinician Unavailable Krystal Velasco CNM Attending Clinician Kory Cruz MD Attending Clinician Sammy GONZALEZ, Heidi Stinson Attending Clinician Unavailable Doctor Unassigned, [place] Attending Clinician Unavailable Stacey Prakash Attending Clinician [phone] STACEY CUELLAR Attending Clinician Unavailable SHELLEY OCASIO Attending Clinician Unavailable Ultrasound, Ang-Mfm Attending Clinician Unavailable Shelley Ocasio MD Attending Clinician [phone] KRYSTAL VELASCO Attending Clinician Unavailable HILLARY WILKINSONSOL Attending Clinician Unavailable MAJO ASHLEIGH Attending Clinician Unavailable LEEROY DENG Attending Clinician Unavailable YVONNE SIDDIQI Attending Clinician Unavailable Yvonne Rodriguez Attending Clinician Jennifer Belcher LMSW Attending Clinician Unavailable Broderick Melton DO Attending Clinician ITZEL CHAUDHARY Attending Clinician Unavailable KRISSY GREEN Attending Clinician Unavailable Itzel Chaudhary PA-C Attending Clinician 1, [facility] Attending Clinician Unavailable ASHLEIGH WILKINSON Admitting Clinician Unavailable KORY CRUZ Admitting Clinician Unavailable Kory Cruz MD Admitting Clinician Payers Payer Name Policy Type Policy Number Effective Date Expiration Date [facility] [id number] 2023 STAR 00:00:00 MEDICAID PENDING PENDING 2023 2023 00:00:00 00:00:00 MED[place]ID OF [place] [id number] 2023 2023 00:00:00 00:00:00 [facility] STAR [id number] 2018 00:00:00 Problems Condition Condition Condition Status [...] vomiting 5-23 ity of during during 00:00: [place] 00 [facility] Branch History of History of Disease Active Overview : Univers heart heart -23 Formattin ity of murmur in murmur in 00:00: g of this [place] childhood childhood 00 note [facility] might be Branch different from the original. Age 12EKG NSR with sinus arrhythmi a. Normal EKG compared to 7. Family Family Disease Active Overview: Shane s history of history of 5-23 Formattin ity of autism autism 00:00: g of this [place] 00 note Medical might be Branch different from the original. Patient sister and daughter Nexplanon Nexplanon Disease Active 2018-09 Uni vers insertion insertion 2-16 ity of 00:00: [place] Medical Branch Nexplanon Nexplanon Disease Active 2018-[address] in place 2-16 ity of 00:00: [place] [address] Medical Branch Encounter Encounter Disease Active 2018-09 Uni vers for female for female 2-16 it y of 00:00: [place] control control Medical Branch Anemia, Anemia, Disease Active 2018-09 Univers antepartum antepartum 1-12 it y of , third , third 00:00: [place] trimester trimester 00 [facility] Obesity Obesity Disease Active Univers (BMI (BMI 4-15 ity of 30-39.9) 30-39.9) 00:00: [place] [address] Medical Branch History of History of Disease Active U nivers depression depression 4-15 it y of 00:00: [place] [address] Medical Branch History of History of Disease Active U nivers anxiety anxiety 4-15 ity of and and 00:00: [place] depression depression 00 [facility] Anxiety Anxiety Disease Active Univers during during 4-15 ity of 00:00: [facility] s [address] [place] [address] Allergies, Adverse Reactions, Alerts Allergy Allergy Status Severity Reaction(s) Onset Inactive Treating Comm ents Source Name Type Date Date Clinician NO KNOWN Drug Active Univers ALLERGIE Class ity of S [facility] Social History Social Habit Start Date Stop Date Quantity Comments Source ASSERTION 2023-01-10 University of 00:00:00 [facility] History of tobacco Passive smoker Un iversity of use [facility] Gender identity Universit y of [facility] Sexual orientation Univer sity of [facility] Alcohol intake 2023-04-02 2023-04-02 Current University of 00:00:00 00:00:00 non-drinker of [facility] alcohol Branch (finding) Tobacco Comment 2023-02-11 2023-02-11 fiance smokes Univer sity of 00:00:00 00:00:[address] [facility] Tobacco use and 2023-02-11 2023-02-11 Smokeless Universit y of exposure 00:00:00 00:00:00 tobacco non-user [facility] History of Social 2023-02-11 2023-02-11 Univers ity of function 00:00:00 00:00:00 [facility] Exposure to 2022-01-06 2022-01-16 Unable to assess Univers ity of SARS-CoV-2 (event) 00:00:00 20:33:00 [facility] Sex Assigned At [birth year] Universit y of 00:00:00 00:00:00 [facility] Smoking Status Start Date Stop Date Source Never smoked tobacco [facility] [place] [facility] Medications Ordered Filled Start Stop Current Ordering Indication Dosage Frequency Signature Comments Components Source Medication Medication Date Date Medication? Clinician (SIG) Name Name SERTraline Yes [id number] 100mg Take 1 Univers 100 mg 8-30 109 tablet by ity of tablet 00:00: mouth in [place] the Medical morning. [place] SERTraline 0 Yes [id number] 100mg Take 1 Univers 100 mg 8-30 109 tablet by ity of tablet 00:00: mouth in [place] the Medical morning. [place] SERTraline 0 Yes [id number] 100mg Take 1 Univers 100 mg 8-30 109 tablet by ity of tablet 00:00: mouth in [place] the Medical morning. [place] SERTraline 2022-0 Yes [id number] 100mg Take 1 Univers 100 mg 8-30 109 tablet by ity of tablet 00:00: mouth in [place] the Medical morning. [place] SERTraline 0 Yes [id number] 100mg Take 1 Univers 100 mg 8-30 109 tablet by ity of tablet 00:00: mouth in [place] the Medical morning. Branch SERTraline 2022-0 Yes [id number] 100mg Take 1 Univers 100 mg 8-30 109 tablet by ity of tablet 00:00: mouth in [place] the Medical morning. [place] SERTraline 2022-0 Yes [id number] 100mg Take 1 Univers 100 mg 8-30 109 tablet by ity of tablet 00:00: mouth in [place] 00 the Medical morning. Branch SERTraline 0 Yes [id number] 100mg Take 1 Univers 100 mg 8-30 109 tablet by ity of tablet 00:00: mouth in [place] the morning. Branch SERTraline 0 Yes [id number] 100mg Take 1 Univers 100 mg 8-30 109 tablet by ity of tablet 00:00: mouth in [place] the morning. Branch ondansetron 2022- No 4mg 4 mg, Slow Univers (ZOFRAN 04-18 IV Push, ity of (PF)) 20:45: 20:21 ONCE, On [place] injection 4 00 :00 Fri Medical mg 04/18/23 at Branch 1545, For 1 dose
Do ses of ondansetro n 16 mg and above need to be administer ed via IV piggyback. For Dose >=24mg ECG monitoring is advisable.
NaCl 0.9% 0 2022- No 1000mL at [...] Fri04/18/23 at 1415, STAT metroNIDAZO 3-0 Yes [id number] 500mg Take 1 Univers LE (FLAGYL) 7-28 tablet by ity of 500 mg 00:00: mouth [place] tablet 00 every 12 Medical (twelve) Branch hours. metroNIDAZO 2023-0 Yes [id number] 500mg Take 1 Univers LE (FLAGYL) 7-28 tablet by ity of 500 mg 00:00: mouth [place] tablet 00 every 12 Medical (twelve) Branch hours. metroNIDAZO 2023-0 Yes [id number] 500mg Take 1 Univers LE (FLAGYL) 7-28 tablet by ity of 500 mg 00:00: mouth [place] tablet 00 every 12 Medical (twelve) Branch hours. metroNIDAZO 2022-0 Yes [id number] 500mg Take 1 Univers LE (FLAGYL) 7-28 tablet by ity of 500 mg 00:00: mouth [place] tablet 00 every 12 Medical (twelve) Branch hours. metroNIDAZO 2022-0 Yes [id number] 500mg Take 1 Univers LE (FLAGYL) 7-28 tablet by ity of 500 mg 00:00: mouth [place] tablet 00 every 12 Medical (twelve) Branch hours. metroNIDAZO 2022-0 Yes [id number] 500mg Take 1 Univers LE (FLAGYL) 7-28 tablet by ity of 500 mg 00:00: mouth [place] tablet 00 every 12 Medical (twelve) Branch hours. metroNIDAZO 2022-0 Yes [id number] 500mg Take 1 Univers LE (FLAGYL) 7-28 tablet by ity of 500 mg 00:00: mouth [place] tablet 00 every 12 Medical (twelve) Branch hours. metroNIDAZO 2022-0 Yes [id number] 500mg Take 1 Univers LE (FLAGYL) 7-28 tablet by ity of 500 mg 00:00: mouth [place] tablet 00 every 12 Medical (twelve) Branch hours. metroNIDAZO 2022-0 Yes [id number] 500mg Take 1 Univers LE (FLAGYL) 7-28 tablet by ity of 500 mg 00:00: mouth [place] tablet 00 every 12 Medical (twelve) Branch hours. metroNIDAZO 2022-0 Yes [id number] 500mg Take 1 Univers LE (FLAGYL) 7-28 tablet by ity of 500 mg 00:00: mouth [place] tablet 00 every 12 Medical (twelve) Branch hours. metroNIDAZO 2022-0 Yes [id number] 500mg Take 1 Univers LE (FLAGYL) 7-28 tablet by ity of 500 mg 00:00: mouth [place] tablet 00 every 12 Medical (twelve) Branch hours. metroNIDAZO 2022-0 Yes [id number] 500mg Take 1 Univers LE (FLAGYL) 7-28 tablet by ity of 500 mg 00:00: mouth [place] tablet 00 every 12 Medical (twelve) Branch hours. fluconazole 2022-0 2023- No [id number] 150mg Take 1 Univers (DIFLUCAN) 7-17 07-18 tablet by ity of 150 mg 00:00: 04:59 mouth [place] tablet 00 :00 now for 1 Medical dose. Branch proMETHazin 2023-0 Yes [id number] 25mg Take 1 Univers e 25 mg 7-13 tablet by ity of tablet 00:00: mouth [place] 00 every 4 Medical (four) Branch hours as needed for Nausea and Vomiting (N/V). proMETHazin 3-0 Yes [id number] 25mg Take 1 Univers e 25 mg 7-13 tablet by ity of tablet 00:00: mouth [place] 00 every 4 Medical (four) Branch hours as needed for Nausea and Vomiting (N/V). proMETHazin 3-0 Yes [id number] 25mg Take 1 Univers e 25 mg 7-13 tablet by ity of tablet 00:00: mouth [place] 00 every 4 Medical (four) Branch hours as needed for Nausea and Vomiting (N/V). proMETHazin 3-0 Yes [id number] 25mg Take 1 Univers e 25 mg 7-13 tablet by ity of tablet 00:00: mouth [place] 00 every 4 Medical (four) Branch hours as needed for Nausea and Vomiting (N/V). proMETHazin 3-0 Yes [id number] 25mg Take 1 Univers e 25 mg 7-13 tablet by ity of tablet 00:00: mouth [place] 00 every 4 Medical (four) Branch hours as needed for Nausea and Vomiting (N/V). proMETHazin 2023-0 Yes [id number] 25mg Take 1 Univers e 25 mg 7-13 tablet by ity of tablet 00:00: mouth [place] 00 every 4 Medical (four) Branch hours as needed for Nausea and Vomiting (N/V). proMETHazin 2023-0 Yes [id number] 25mg Take 1 Univers e 25 mg 7-13 tablet by ity of tablet 00:00: mouth [place] 00 every 4 Medical (four) Branch hours as needed for Nausea and Vomiting (N/V). proMETHazin 2023-0 Yes [id number] 25mg Take 1 Univers e 25 mg 7-13 tablet by ity of tablet 00:00: mouth [place] 00 every 4 Medical (four) Branch hours as needed for Nausea and Vomiting (N/V). proMETHazin 2023-0 Yes [id number] 25mg Take 1 Univers e 25 mg 7-13 tablet by ity of tablet 00:00: mouth [place] 00 every 4 Medical (four) Branch hours as needed for Nausea and Vomiting (N/V). proMETHazin 2023-0 Yes [id number] 25mg Take 1 Univers e 25 mg 7-13 tablet by ity of tablet 00:00: mouth [place] 00 every 4 Medical (four) Branch hours as needed for Nausea and Vomiting (N/V). proMETHazin 2023-0 Yes [id number] 25mg Take 1 Univers e 25 mg 7-13 tablet by ity of tablet 00:00: mouth [place] 00 every 4 Medical (four) Branch hours as needed for Nausea and Vomiting (N/V). proMETHazin 3-0 Yes [id number] 25mg Take 1 Univers e 25 mg 7-13 tablet by ity of tablet 00:00: mouth [place] 00 every 4 Medical (four) Branch hours as needed for Nausea and Vomiting (N/V). proMETHazin 3-0 Yes [id number] 25mg Take 1 Univers e 25 mg 7-13 tablet by ity of tablet 00:00: mouth [place] 00 every 4 Medical (four) Branch hours as needed for Nausea and Vomiting (N/V). proMETHazin 3-0 Yes [id number] 25mg Take 1 Univers e 25 mg 7-13 tablet by ity of tablet 00:00: mouth [place] 00 every 4 Medical (four) Branch hours as needed for Nausea and Vomiting (N/V). proMETHazin 3-0 Yes [id number] 25mg Take 1 Univers e 25 mg 7-13 tablet by ity of tablet 00:00: mouth [place] 00 every 4 Medical (four) Branch hours as needed for Nausea and Vomiting (N/V). proMETHazin 3-0 Yes [id number] 25mg Take 1 Univers e 25 mg 7-13 tablet by ity of tablet 00:00: mouth [place] 00 every 4 Medical (four) Branch hours as needed for Nausea and Vomiting (N/V). SERTraline 2022-0 2022- No [id number] Take 1 Univers (ZOLOFT) 50 7-04 05- 109 tablet by it y of mg tablet 00:00: 04:59 mouth [place] 00 :00 daily for Medical 4 days, Branch THEN 2 tablets daily for 30 days. SERTraline 2022-0 2022- No [id number] Take 1 Univers (ZOLOFT) 50 7- 08- 109 tablet by it y of mg tablet 00:00: 04:59 mouth [place] 00 :00 daily for Medical 4 days, Branch THEN 2 tablets daily for 30 days. SERTraline 2022- No [id number] Take 1 Univers (ZOLOFT) 50 04-03 109 tablet by it y of mg tablet 00:00: 04:59 mouth [place] 00 :00 daily for Medical 4 days, Branch THEN 2 tablets daily for 30 days. SERTraline 2022- No [id number] Take 1 Univers (ZOLOFT) 50 04-03 109 tablet by it y of mg tablet 00:00: 04:59 mouth [place] 00 :00 daily for Medical 4 days, Branch THEN 2 tablets daily for 30 days. SERTraline 2022- No [id number] Take 1 Univers (ZOLOFT) 50 04-03 109 tablet by it y of mg tablet 00:00: 04:59 mouth [place] 00 :00 daily for Medical 4 days, Branch THEN 2 tablets daily for 30 days. SERTraline 2022- No [id number] Take 1 Univers (ZOLOFT) 50 04-03 109 tablet by it y of mg tablet 00:00: 04:59 mouth [place] 00 :00 daily for Medical 4 days, Branch THEN 2 tablets daily for 30 days. Yes [id number] 1{packe Take 1 Univers vit 6-20 t} Packet by ity of 33-iron-fol 00:00: mouth in [place] ic-dha 00 the Medical (SELECT-OB morning. Branc h + DHA) 29 mg iron-1 mg -250 mg combo pack Yes [id number] 1{packe Take 1 Univers vit 6-20 t} Packet by ity of 33-iron-fol 00:00: mouth in [place] ic-dha 00 the Medical (SELECT-OB morning. Branc h + DHA) 29 mg iron-1 mg -250 mg combo pack Yes [id number] 1{packe Take 1 Univers vit 6-20 t} Packet by ity of 33-iron-fol 00:00: mouth in [place] ic-dha 00 the Medical (SELECT-OB morning. Branc h + DHA) 29 mg iron-1 mg -250 mg combo pack Yes [id number] 1{packe Take 1 Univers vit 6-20 t} Packet by ity of 33-iron-fol 00:00: mouth in [place] ic-dha 00 the Medical (SELECT-OB morning. Branc h + DHA) 29 mg iron-1 mg -250 mg combo pack Yes [id number] 1{packe Take 1 Univers vit 6-20 t} Packet by ity of 33-iron-fol 00:00: mouth in [place] ic-dha 00 the Medical (SELECT-OB morning. Branc h + DHA) 29 mg iron-1 mg -250 mg combo pack Yes [id number] 1{packe Take 1 Univers vit 6-20 t} Packet by ity of 33-iron-fol 00:00: mouth in [place] ic-dha 00 the Medical (SELECT-OB morning. Branc h + DHA) 29 mg iron-1 mg -250 mg combo pack Yes [id number] 1{packe Take 1 Univers vit 6-20 t} Packet by ity of 33-iron-fol 00:00: mouth in [place] ic-dha 00 the Medical (SELECT-OB morning. Branc h + DHA) 29 mg iron-1 mg -250 mg combo pack Yes [id number] 1{packe Take 1 Univers vit 6-20 t} Packet by ity of 33-iron-fol 00:00: mouth in [place] ic-dha 00 the Medical (SELECT-OB morning. Branc h + DHA) 29 mg iron-1 mg -250 mg combo pack Yes [id number] 1{packe Take 1 Univers vit 6-20 t} Packet by ity of 33-iron-fol 00:00: mouth in [place] ic-dha 00 the Medical (SELECT-OB morning. Branc h + DHA) 29 mg iron-1 mg -250 mg combo pack Yes [id number] 1{packe Take 1 Univers vit 6-20 t} Packet by ity of 33-iron-fol 00:00: mouth in [place] ic-dha 00 the Medical (SELECT-OB morning. Branc h + DHA) 29 mg iron-1 mg -250 mg combo pack Yes [id number] 1{packe Take 1 Univers vit 6-20 t} Packet by ity of 33-iron-fol 00:00: mouth in [place] ic-dha 00 the Medical (SELECT-OB morning. Branc h + DHA) 29 mg iron-1 mg -250 mg combo pack Yes [id number] 1{packe Take 1 Univers vit 6-20 t} Packet by ity of 33-iron-fol 00:00: mouth in [place] ic-dha 00 the Medical (SELECT-OB morning. Branc h + DHA) 29 mg iron-1 mg -250 mg combo pack Yes [id number] 1{packe Take 1 Univers vit 6-20 t} Packet by ity of 33-iron-fol 00:00: mouth in [place] ic-dha 00 the Medical (SELECT-OB morning. Branc h + DHA) 29 mg iron-1 mg -250 mg combo pack Yes [id number] 1{packe Take 1 Univers vit 6-20 t} Packet by ity of 33-iron-fol 00:00: mouth in [place] ic-dha 00 the Medical (SELECT-OB morning. Branc h + DHA) 29 mg iron-1 mg -250 mg combo pack Yes [id number] 1{packe Take 1 Univers vit 6-20 t} Packet by ity of 33-iron-fol 00:00: mouth in [place] ic-dha 00 the Medical (SELECT-OB morning. Branc h + DHA) 29 mg iron-1 mg -250 mg combo pack Yes [id number] 1{packe Take 1 Univers vit 6-20 t} Packet by ity of 33-iron-fol 00:00: mouth in [place] ic-dha 00 the Medical (SELECT-OB morning. Branc h + DHA) 29 mg iron-1 mg -250 mg combo pack Yes [id number] 1{packe Take 1 Univers vit 6-20 t} Packet by ity of 33-iron-fol 00:00: mouth in [place] ic-dha 00 the Medical (SELECT-OB morning. Branc h + DHA) 29 mg iron-1 mg -250 mg combo pack Yes [id number] 1{packe Take 1 Univers vit 6-20 t} Packet by ity of 33-iron-fol 00:00: mouth in [place] ic-dha 00 the Medical (SELECT-OB morning. Branc h + DHA) 29 mg iron-1 mg -250 mg combo pack 0 Yes [id number] 1{packe Take 1 Univers vit 6-20 t} Packet by ity of 33-iron-fol 00:00: mouth in [place] ic-dha 00 the Medical (SELECT-OB morning. Branc h + DHA) 29 mg iron-1 mg -250 mg combo pack 0 Yes [id number] 1{packe Take 1 Univers vit 6-20 t} Packet by ity of 33-iron-fol 00:00: mouth in [place] ic-dha 00 the Medical (SELECT-OB morning. Branc h + DHA) 29 mg iron-1 mg -250 mg combo pack 0 Yes [id number] 1{packe Take 1 Univers vit 6-20 t} Packet by ity of 33-iron-fol 00:00: mouth in [place] ic-dha 00 the Medical (SELECT-OB morning. Branc h + DHA) 29 mg iron-1 mg -250 mg combo pack 0 Yes [id number] 1{packe Take 1 Univers vit 6-20 t} Packet by ity of 33-iron-fol 00:00: mouth in [place] ic-dha 00 the Medical (SELECT-OB morning. Branc h + DHA) 29 mg iron-1 mg -250 mg combo pack proMETHazin 3-0 Yes [id number] 25mg Take 1 Univers e 25 mg 5-30 tablet by ity of tablet 00:00: mouth [place] 00 every 4 Medical (four) Branch hours as needed for Nausea and Vomiting (N/V). proMETHazin 2023-0 Yes [id number] 25mg Take 1 Univers e 25 mg 5-30 tablet by ity of tablet 00:00: mouth [place] 00 every 4 Medical (four) Branch hours as needed for Nausea and Vomiting (N/V). proMETHazin 2023-0 Yes [id number] 25mg Take 1 Univers e 25 mg 5-30 tablet by ity of tablet 00:00: mouth [place] 00 every 4 Medical (four) Branch hours as needed for Nausea and Vomiting (N/V). proMETHazin 2022-0 Yes [id number] 25mg Take 1 Univers e 25 mg 5-30 tablet by ity of tablet 00:00: mouth [place] 00 every 4 Medical (four) Branch hours as needed for Nausea and Vomiting (N/V). proMETHazin 0 Yes [id number] 25mg Take 1 Univers e 25 mg 5-30 tablet by ity of tablet 00:00: mouth [place] 00 every 4 Medical (four) Branch hours as needed for Nausea and Vomiting (N/V). proMETHazin 0 Yes [id number] 25mg Take 1 Univers e 25 mg 5-30 tablet by ity of tablet 00:00: mouth [place] 00 every 4 Medical (four) Branch hours as needed for Nausea and Vomiting (N/V). proMETHazin 0 Yes [id number] 25mg Take 1 Univers e 25 mg 5-30 tablet by ity of tablet 00:00: mouth [place] 00 every 4 Medical (four) Branch hours as needed for Nausea and Vomiting (N/V). proMETHazin 2022- No [id number] 25mg Take 1 Univers e 25 mg 5-30 07-13 tablet by ity of tablet 00:00: 00:00 mouth [place] 00 :00 every 4 Medical (four) Branch hours as needed for Nausea and Vomiting (N/V). metroNIDAZO 2022- No [id number] 2000mg Take 4 Univers LE 500 mg 5-26 05-27 tablets by ity of tablet 00:00: 04:59 mouth [place] 00 :00 now for 1 Medical dose. Branch metroNIDAZO 2022- No [id number] 2000mg Take 4 Univers LE 500 mg 5-26 05-27 tablets by ity of tablet 00:00: 04:59 mouth [place] 00 :00 now for 1 Medical dose. Branch ondansetron 2021- No 4mg 4 mg, Slow Univers (ZOFRAN 01-17-28 IV Push, ity of (PF)) 04:00: 03:11 ONCE, 1 [place] injection 4 00 :00 dose, On Medi moiz mg Wed Branch 01/16/22 at 2300, ABHAY NaCl 0.9% 2022-0 2022- No 1000mL at 999 Uni vers (NS) bolus 4-28 04-28 mL/hr, ity of infusion 04:00: 03:52 1,000 mL, [place] 1,000 mL 00 :00 IV Medical Infusion, Branch ONCE, 1 dose, On Fri01/16/22 at 2300, ABHAY ondansetron 2-0 Yes [id number] 4mg Take 1 Univers 4 mg 4-27 tablet by ity of disintegrat 00:00: mouth [place] ing tablet 00 every 8 Medica l (eight) Branch hours as needed for Nausea and Vomiting (N/V). ondansetron 2021-0 Yes [id number] 4mg Take 1 Univers 4 mg 4-27 tablet by ity of disintegrat 00:00: mouth [place] ing tablet 00 every 8 Medica l (eight) Branch hours as needed for Nausea and Vomiting (N/V). ondansetron 2-0 Yes [id number] 4mg Take 1 Univers 4 mg 4-27 tablet by ity of disintegrat 00:00: mouth [place] ing tablet 00 every 8 Medica l (eight) Branch hours as needed for Nausea and Vomiting (N/V). ondansetron 2021-0 Yes [id number] 4mg Take 1 Univers 4 mg 4-27 tablet by ity of disintegrat 00:00: mouth [place] ing tablet 00 every 8 Medica l (eight) Branch hours as needed for Nausea and Vomiting (N/V). ondansetron 2021-0 Yes [id number] 4mg Take 1 Univers 4 mg 4-27 tablet by ity of disintegrat 00:00: mouth [place] ing tablet 00 every 8 Medica l (eight) Branch hours as needed for Nausea and Vomiting (N/V). ondansetron 2-0 Yes [id number] 4mg Take 1 Univers 4 mg 4-27 tablet by ity of disintegrat 00:00: mouth [place] ing tablet 00 every 8 Medica l (eight) Branch hours as needed for Nausea and Vomiting (N/V). ondansetron 2-0 Yes [id number] 4mg Take 1 Univers 4 mg 4-27 tablet by ity of disintegrat 00:00: mouth [place] ing tablet 00 every 8 Medica l (eight) Branch hours as needed for Nausea and Vomiting (N/V). ondansetron 2-0 Yes [id number] 4mg Take 1 Univers 4 mg 4-27 tablet by ity of disintegrat 00:00: mouth [place] ing tablet 00 every 8 Medica l (eight) Branch hours as needed for Nausea and Vomiting (N/V). ondansetron 0 Yes [id number] 4mg Take 1 Univers 4 mg 4-27 tablet by ity of disintegrat 00:00: mouth [place] ing tablet 00 every 8 Medica l (eight) Branch hours as needed for Nausea and Vomiting (N/V). ondansetron 0 Yes [id number] 4mg Take 1 Univers 4 mg 4-27 tablet by ity of disintegrat 00:00: mouth [place] ing tablet 00 every 8 Medica l (eight) Branch hours as needed for Nausea and Vomiting (N/V). ondansetron Yes [id number] 4mg Take 1 Univers 4 mg 4-27 tablet by ity of disintegrat 00:00: mouth [place] ing tablet 00 every 8 Medica l (eight) Branch hours as needed for Nausea and Vomiting (N/V). ondansetron Yes [id number] 4mg Take 1 Univers 4 mg 4-27 tablet by ity of disintegrat 00:00: mouth [place] ing tablet 00 every 8 Medica l (eight) Branch hours as needed for Nausea and Vomiting (N/V). ondansetron 3- No [id number] 4mg Take 1 Univers 4 mg 4-27 07-13 tablet by ity of disintegrat 00:00: 00:00 [place] tablet 00 :00 every 8 Medica l (eight) Branch hours as needed for Nausea and Vomiting (N/V). azithromyci 2020-0 Yes [id number] 250mg Take 1 Univers n 250 mg 3-28 tablet by ity of tablet 00:00: mouth [place] 00 daily. Medical Take 500 Branch mg day 1, then 250 mg days 2 to 5. azithromyci 2020-0 Yes [id number] 250mg Take 1 Univers n 250 mg 3-28 tablet by ity of tablet 00:00: mouth [place] 00 daily. Medical Take 500 Branch mg day 1, then 250 mg days 2 to 5. azithromyci 2020-0 Yes [id number] 250mg Take 1 Univers n 250 mg 3-28 tablet by ity of tablet 00:00: mouth [place] 00 daily. Medical Take 500 Branch mg day 1, then 250 mg days 2 to 5. azithromyci 2022- No [id number] 250mg Take 1 Univers n 250 mg 12-17 tablet by ity o f tablet 00:00: 00:00 mouth [place] 00 :00 daily. Medical Take 500 Branch mg day 1, then 250 mg days 2 to 5. azithromyci 2022- No [id number] 250mg Take 1 Univers n 250 mg 12-17 tablet by ity o f tablet 00:00: 00:00 mouth [place] 00 :00 daily. Medical Take 500 Branch mg day 1, then 250 mg days 2 to 5. Nitrofurant 2019- No [id number] 100mg Take 1 Univers oin&Nit. 05-04 capsule by ity of Macrocryst 00:00: 04:59 mouth 2 [place] 100 mg 00 :00 (two) Medical capsule times Branch daily for 7 days. metroNIDAZO Yes [id number] 500mg Take 1 Univers LE 500 mg 8-09 tablet by ity o f tablet 00:00: mouth [place] 00 every 12 Medical (twelve) Branch hours. metroNIDAZO Yes [id number] 500mg Take 1 Univers LE 500 mg 8-09 tablet by ity o f tablet 00:00: mouth [place] 00 every 12 Medical (twelve) Branch hours. metroNIDAZO Yes [id number] 500mg Take 1 Univers LE 500 mg 8- tablet by ity o f tablet 00:00: mouth [place] 00 every 12 Medical (twelve) Branch hours. metroNIDAZO 2019- No [id number] 500mg Take 1 Univers LE 500 mg 04-30- tablet by ity of tablet 00:00: 00:00 mouth [place] 00 :00 every 12 Medical (twelve) Branch hours. fluconazole Yes [id number] 200mg Take 1 [facility] (DIFLUCAN) 8-08 tablet by ity of 200 mg 00:00: mouth [place] tablet 00 daily. Medical Branch fluconazole Yes [id number] 200mg Take 1 [facility] (DIFLUCAN) 8-08 tablet by ity of 200 mg 00:00: mouth [place] tablet 00 daily. Medical [facility] fluconazole 2019-0 Yes [id number] 200mg Take 1 [facility] (DIFLUCAN) 8-08 tablet by ity of 200 mg 00:00: mouth [place] tablet 00 daily. [facility] fluconazole 2019-0 Yes [id number] 200mg Take 1 [facility] (DIFLUCAN) 8-08 tablet by ity of 200 mg 00:00: mouth [place] tablet 00 daily. Medical [facility] fluconazole 2019-0 2019- No [id number] 200mg Take 1 [facility] (DIFLUCAN) 8-08 08-13 tablet by ity of 200 mg 00:00: 00:00 mouth [place] tablet 00 :00 daily. Medical Branch [id number], 2019-0 Yes [id number] Take 1 [facility] carb,glu-FA 4-15 9106 TAB-CAP/M2 it y of -dss-dha 00:00: by mouth [place] (CITRANATAL 00 daily. Medica l DHA, ALGAL Branch OIL,) 27 mg iron-1 mg -50 mg-250 mg Cmpk [id number], 2019-0 Yes [id number] Take 1 [facility] carb,glu-FA 4-15 9106 TAB-CAP/M2 it y of -dss-dha 00:00: by mouth [place] (CITRANATAL 00 daily. Medica l DHA, ALGAL Branch OIL,) 27 mg iron-1 mg -50 mg-250 mg Cmpk [id number], 2019-0 Yes [id number] Take 1 [facility] carb,glu-FA 4-15 9106 TAB-CAP/M2 it y of -dss-dha 00:00: by mouth [place] (CITRANATAL 00 daily. Medica l DHA, ALGAL Branch OIL,) 27 mg iron-1 mg -50 mg-250 mg Cmpk [id number], 2019-0 Yes [id number] Take 1 [facility] carb,glu-FA 4-15 9106 TAB-CAP/M2 it y of -dss-dha 00:00: by mouth [place] (CITRANATAL 00 daily. Medica l DHA, ALGAL Branch OIL,) 27 mg iron-1 mg -50 mg-250 mg Cmpk [id number], 2019-0 Yes [id number] Take 1 [facility] carb,glu-FA 4-15 9106 TAB-CAP/M2 it y of -dss-dha 00:00: by mouth [place] (CITRANATAL 00 daily. Medica l DHA, ALGAL Branch OIL,) 27 mg iron-1 mg -50 mg-250 mg Cmpk [id number], 2019-0 Yes [id number] Take 1 [facility] carb,glu-FA 4-15 9106 TAB-CAP/M2 it y of -dss-dha 00:00: by mouth [place] (CITRANATAL 00 daily. Medica l DHA, ALGAL Branch OIL,) 27 mg iron-1 mg -50 mg-250 mg Cmpk [id number], 2019-0 Yes [id number] Take 1 [facility] carb,glu-FA 4-15 9106 TAB-CAP/M2 it y of -dss-dha 00:00: by mouth [place] (CITRANATAL 00 daily. Medica l DHA, ALGAL Branch OIL,) 27 mg iron-1 mg -50 mg-250 mg Cmpk [id number], 2018-0 Yes [id number] Take 1 [facility] carb,glu-FA 4-15 9106 TAB-CAP/M2 it y of -dss-dha 00:00: by mouth [place] (CITRANATAL 00 daily. Medica l DHA, ALGAL Branch OIL,) 27 mg iron-1 mg -50 mg-250 mg Cmpk [id number], 2019-0 Yes [id number] Take 1 [facility] carb,glu-FA 4-15 9106 TAB-CAP/M2 it y of -dss-dha 00:00: by mouth [place] (CITRANATAL 00 daily. Medica l DHA, ALGAL Branch OIL,) 27 mg iron-1 mg -50 mg-250 mg Cmpk [id number], 2019-0 Yes [id number] Take 1 [facility] carb,glu-FA 4-15 9106 TAB-CAP/M2 it y of -dss-dha 00:00: by mouth [place] (CITRANATAL 00 daily. Medica l DHA, ALGAL Branch OIL,) 27 mg iron-1 mg -50 mg-250 mg Cmpk [id number], 2019-0 Yes [id number] Take 1 [facility] carb,glu-FA 4-15 9106 TAB-CAP/M2 it y of -dss-dha 00:00: by mouth [place] (CITRANATAL 00 daily. Medica l DHA, ALGAL Branch OIL,) 27 mg iron-1 mg -50 mg-250 mg Cmpk [id number], 2019-0 Yes [id number] Take 1 [facility] carb,glu-FA 4-15 9106 TAB-CAP/M2 it y of -dss-dha 00:00: by mouth [place] (CITRANATAL 00 daily. Medica l DHA, ALGAL Branch OIL,) 27 mg iron-1 mg -50 mg-250 mg Cmpk [id number], 2019-0 Yes [id number] Take 1 [facility] carb,glu-FA 4-15 9106 TAB-CAP/M2 it y of -dss-dha 00:00: by mouth [place] (CITRANATAL 00 daily. Medica l DHA, ALGAL Branch OIL,) 27 mg iron-1 mg -50 mg-250 mg Cmpk Immunizations Ordered Immunization Filled Date Status Comments Sour ce Name Immunization Name SARS-COV-2 COVID-19 2021-11-01 Completed Unive rsity of VACCINE - (MODERNA) 00:00:00 [facility] SARS-COV-2 COVID-19 2021-11-01 Completed Unive rsity of VACCINE - (MODERNA) 00:00:00 [facility] SARS-COV-2 COVID-19 2021-11-01 Completed Unive rsity of VACCINE - (MODERNA) 00:00:00 [facility] SARS-COV-2 COVID-19 2021-11-01 Completed Unive rsity of VACCINE - (MODERNA) 00:00:00 [facility] SARS-COV-2 COVID-19 2021-11-01 Completed [facility]ive rsity of VACCINE - (MODERNA) 00:00:00 [facility] SARS-COV-2 COVID-19 2021-11-01 Completed Unive rsity of VACCINE - (MODERNA) 00:00:00 [facility] SARS-COV-2 COVID-19 2021-11-01 Completed Unive rsity of VACCINE - (MODERNA) 00:00:00 [facility] SARS-COV-2 COVID-19 2021-11-01 Completed Unive rsity of VACCINE - (MODERNA) 00:00:00 [facility] SARS-COV-2 COVID-19 2021-11-01 Completed Unive rsity of VACCINE - (MODERNA) 00:00:00 [facility] SARS-COV-2 COVID-19 2021-11-01 Completed Unive rsity of VACCINE - (MODERNA) 00:00:00 [facility] SARS-COV-2 COVID-19 2021-11-01 Completed Unive rsity of VACCINE - (MODERNA) 00:00:00 [facility] SARS-COV-2 COVID-19 2021-11-01 Completed Unive rsity of VACCINE - (MODERNA) 00:00:00 [facility] SARS-COV-2 COVID-19 2021-11-01 Completed Unive rsity of VACCINE - (MODERNA) 00:00:00 [facility] SARS-COV-2 COVID-19 2021-11-01 Completed Unive rsity of VACCINE - (MODERNA) 00:00:00 [facility] SARS-COV-2 COVID-19 2021-11-01 Completed Unive rsity of VACCINE - (MODERNA) 00:00:00 [facility] SARS-COV-2 COVID-19 2021-11-01 Completed Unive rsity of VACCINE - (MODERNA) 00:00:00 [facility] SARS-COV-2 COVID-19 2021-11-01 Completed Unive rsity of VACCINE - (MODERNA) 00:00:00 [facility] SARS-COV-2 COVID-19 2021-11-01 Completed Unive rsity of VACCINE - (MODERNA) 00:00:00 [facility] SARS-COV-2 COVID-19 2021-11-01 Completed Unive rsity of VACCINE - (MODERNA) 00:00:00 [facility] SARS-COV-2 COVID-19 2021-11-01 Completed Unive rsity of VACCINE - (MODERNA) 00:00:00 [facility] SARS-COV-2 COVID-19 2021-11-01 Completed Unive rsity of VACCINE - (MODERNA) 00:00:00 [facility] SARS-COV-2 COVID-19 2021-06-08 Completed Unive rsity of VACCINE - (MODERNA) 00:00:00 [facility] SARS-COV-2 COVID-19 2021-06-08 Completed Unive rsity of VACCINE - (MODERNA) 00:00:00 [facility] SARS-COV-2 COVID-19 2021-06-08 Completed Unive rsity of VACCINE - (MODERNA) 00:00:00 [facility] SARS-COV-2 COVID-19 2021-06-08 Completed Unive rsity of VACCINE - (MODERNA) 00:00:00 [facility] SARS-COV-2 COVID-19 2021-06-08 Completed Unive rsity of VACCINE - (MODERNA) 00:00:00 [facility] SARS-COV-2 COVID-19 2021-06-08 Completed Unive rsity of VACCINE - (MODERNA) 00:00:00 [facility] SARS-COV-2 COVID-19 2021-06-08 Completed Unive rsity of VACCINE - (MODERNA) 00:00:00 [facility] SARS-COV-2 COVID-19 2021-06-08 Completed Unive rsity of VACCINE - (MODERNA) 00:00:00 [facility] SARS-COV-2 COVID-19 2021-06-08 Completed Unive rsity of VACCINE - (MODERNA) 00:00:00 [facility] SARS-COV-2 COVID-19 2021-06-08 Completed Unive rsity of VACCINE - (MODERNA) 00:00:00 [facility] SARS-COV-2 COVID-19 2021-06-08 Completed Unive rsity of VACCINE - (MODERNA) 00:00:00 [facility] SARS-COV-2 COVID-19 2021-06-08 Completed Unive rsity of VACCINE - (MODERNA) 00:00:00 [facility] SARS-COV-2 COVID-19 2021-06-08 Completed Unive rsity of VACCINE - (MODERNA) 00:00:00 [facility] SARS-COV-2 COVID-19 2021-06-08 Completed Unive rsity of VACCINE - (MODERNA) 00:00:00 [facility] SARS-COV-2 COVID-19 2021-06-08 Completed Unive rsity of VACCINE - (MODERNA) 00:00:00 [facility] SARS-COV-2 COVID-19 2021-06-08 Completed Unive rsity of VACCINE - (MODERNA) 00:00:00 [facility] SARS-COV-2 COVID-19 2021-06-08 Completed Unive rsity of VACCINE - (MODERNA) 00:00:00 [facility] SARS-COV-2 COVID-19 2021-06-08 Completed Unive rsity of VACCINE - (MODERNA) 00:00:00 [facility] SARS-COV-2 COVID-19 2021-06-08 Completed Unive rsity of VACCINE - (MODERNA) 00:00:00 [facility] SARS-COV-2 COVID-19 2021-06-08 Completed Unive rsity of VACCINE - (MODERNA) 00:00:00 [facility] SARS-COV-2 COVID-19 2021-06-08 Completed Unive rsity of VACCINE - (MODERNA) 00:00:00 [facility] Influenza Virus 2019-06-29 Completed Universit y of Vaccine Quad .5 mL 00:00:00 [place] [facility] 6+ MO Branch Influenza Virus 2019-06-29 Completed Universit y of Vaccine Quad .5 mL 00:00:00 [place] [facility] 6+ MO [facility] Influenza Virus 2019-06-29 Completed Universit y of Vaccine Quad .5 mL 00:00:00 [facility] 6+ MO Branch Influenza Virus 2019-06-29 Completed Universit y of Vaccine Quad .5 mL 00:00:00 [place] [facility] 6+ MO Branch Influenza Virus 2019-06-29 Completed Universit y of Vaccine Quad .5 mL 00:00:00 [facility] 6+ MO Branch (FLUZONE/FLULAVAL/FL UARIX) Influenza Virus 2019-06-29 Completed Universit y of Vaccine Quad .5 mL 00:00:00 [place] [facility] 6+ MO Branch (FLUZONE/FLULAVAL/FL UARIX) Influenza Virus 2019-06-29 Completed Universit y of Vaccine Quad .5 mL 00:00:00 [place] [facility] 6+ MO Branch (FLUZONE/FLULAVAL/FL UARIX) Influenza Virus 2019-06-29 Completed Universit y of Vaccine Quad .5 mL 00:00:00 [facility] 6+ MO Branch (FLUZONE/FLULAVAL/FL UARIX) Influenza Virus 2019-06-29 Completed Universit y of Vaccine Quad .5 mL 00:00:00 [place] [facility] 6+ MO Branch Influenza Virus 2019-06-29 Completed Universit y of Vaccine Quad .5 mL 00:00:00 [place] [facility] 6+ MO Branch Influenza Virus 2019-06-29 Completed Universit y of Vaccine Quad .5 mL 00:00:00 [place] [facility] 6+ MO Branch Influenza Virus [...] 00:00:00 [place] [facility] 6+ MO Branch TDAP (ADACEL) 2019-05-27 Completed University of VACCINE 00:00:00 [place] [facility] TDAP (ADACEL) 2019-05-27 Completed University of VACCINE 00:00:00 [place] [facility] TDAP (ADACEL) 2019-05-27 Completed University of VACCINE 00:00:00 [place] [facility] TDAP (ADACEL) 2019-05-27 Completed University of VACCINE 00:00:00 [facility] TDAP (ADACEL) 2019-05-27 Completed University of VACCINE 00:00:00 [facility] TDAP (ADACEL) 2019-05-27 Completed University of VACCINE 00:00:00 [place] [facility] TDAP (ADACEL) 2019-05-27 Completed University of VACCINE 00:00:00 [place] [facility] TDAP (ADACEL) 2019-05-27 Completed University of VACCINE 00:00:00 [place] [facility] TDAP (ADACEL) 2019-05-27 Completed University of VACCINE 00:00:00 [facility] TDAP (ADACEL) 2019-05-27 Completed University of VACCINE 00:00:00 [facility] TDAP (ADACEL) 2019-05-27 Completed University of VACCINE 00:00:00 [facility] TDAP (ADACEL) 2019-05-27 Completed University of VACCINE 00:00:00 [facility] TDAP (ADACEL) 2019-05-27 Completed University of VACCINE 00:00:00 [facility] TDAP (ADACEL) 2019-05-27 Completed University of VACCINE 00:00:00 [facility] TDAP (ADACEL) 2019-05-27 Completed University of VACCINE 00:00:00 [facility] TDAP (ADACEL) 2019-05-27 Completed University of VACCINE 00:00:00 [facility] TDAP (ADACEL) 2019-05-27 Completed University of VACCINE 00:00:00 [facility] TDAP (ADACEL) 2019-05-27 Completed University of VACCINE 00:00:00 [facility] TDAP (ADACEL) 2019-05-27 Completed University of VACCINE 00:00:00 [facility] TDAP (ADACEL) 2019-05-27 Completed University of VACCINE 00:00:00 [facility] TDAP (ADACEL) 2019-05-27 Completed University of VACCINE 00:00:00 [facility] TDAP (ADACEL) 2019-05-27 Completed University of VACCINE 00:00:00 [facility] TDAP (ADACEL) 2019-05-27 Completed University of VACCINE 00:00:00 [facility] TDAP (ADACEL) 2019-05-27 Completed University of VACCINE 00:00:00 [facility] TDAP (ADACEL) 2019-05-27 Completed University of VACCINE 00:00:00 [facility] TDAP (ADACEL) 2019-04-01 Completed University of VACCINE 00:00:00 [facility] TDAP (ADACEL) 2019-04-01 Completed University of VACCINE 00:00:00 [facility] TDAP (ADACEL) 2019-04-01 Completed University of VACCINE 00:00:00 [facility] TDAP (ADACEL) 2019-04-01 Completed University of VACCINE 00:00:00 [facility] TDAP (ADACEL) 2019-04-01 Completed University of VACCINE 00:00:00 [facility] TDAP (ADACEL) 2019-04-01 Completed University of VACCINE 00:00:00 [facility] TDAP (ADACEL) 2019-04-01 Completed University of VACCINE 00:00:00 [facility] TDAP (ADACEL) 2019-04-01 Completed University of VACCINE 00:00:00 [facility] TDAP (ADACEL) 2019-04-01 Completed University of VACCINE 00:00:00 [facility] TDAP (ADACEL) 2019-04-01 Completed University of VACCINE 00:00:00 [facility] TDAP (ADACEL) 2019-04-01 Completed University of VACCINE 00:00:00 [facility] TDAP (ADACEL) 2019-04-01 Completed University of VACCINE 00:00:00 [facility] TDAP (ADACEL) 2019-04-01 Completed University of VACCINE 00:00:00 [facility] TDAP (ADACEL) 2019-04-01 Completed University of VACCINE 00:00:00 [facility] TDAP (ADACEL) 2019-04-01 Completed University of VACCINE 00:00:00 [facility] TDAP (ADACEL) 2019-04-01 Completed University of VACCINE 00:00:00 [facility] TDAP (ADACEL) 2019-04-01 Completed University of VACCINE 00:00:00 [facility] TDAP (ADACEL) 2019-04-01 Completed University of VACCINE 00:00:00 [facility] TDAP (ADACEL) 2019-04-01 Completed University of VACCINE 00:00:00 [facility] TDAP (ADACEL) 2019-04-01 Completed University of VACCINE 00:00:00 [facility] TDAP (ADACEL) 2019-04-01 Completed University of VACCINE 00:00:00 [facility] TDAP (ADACEL) 2019-04-01 Completed University of VACCINE 00:00:00 [facility] TDAP (ADACEL) 2019-04-01 Completed University of VACCINE 00:00:00 [facility] TDAP (ADACEL) 2019-04-01 Completed University of VACCINE 00:00:00 [facility] TDAP (ADACEL) 2019-04-01 Completed [facility] of VACCINE 00:00:00 [facility] TDAP (ADACEL) 2019-04-01 Completed University of VACCINE 00:00:00 [facility] TDAP (ADACEL) 2019-04-01 Completed [facility] of VACCINE 00:00:00 [facility] TDAP (ADACEL) 2019-04-01 Completed [facility] of VACCINE 00:00:00 [facility] TDAP (ADACEL) 2019-04-01 Completed [facility] of VACCINE 00:00:00 [facility] TDAP (ADACEL) 2019-04-01 Completed [facility] of VACCINE 00:00:00 [facility] TDAP (ADACEL) 2019-04-01 Completed University of VACCINE 00:00:00 [facility] TDAP (ADACEL) 2019-04-01 Completed University of VACCINE 00:00:00 [facility] TDAP (ADACEL) 2019-04-01 Completed University of VACCINE 00:00:00 [facility] TDAP (ADACEL) 2019-04-01 Completed University of VACCINE 00:00:00 [facility] TDAP (ADACEL) 2019-04-01 Completed University of VACCINE 00:00:00 [facility] TDAP (ADACEL) 2019-04-01 Completed University of VACCINE 00:00:00 [facility] TDAP (ADACEL) 2019-04-01 Completed University of VACCINE 00:00:00 [facility] Influenza Virus 2019-01-04 Completed Universit y of Vaccine Quad .5 mL 00:00:00 [facility] 6+ MO Branch Influenza Virus 2019-01-04 Completed Universit y of Vaccine Quad .5 mL 00:00:00 [facility] 6+ MO Branch Influenza Virus 2019-01-04 Completed Universit y of Vaccine Quad .5 mL 00:00:00 [place] [facility] 6+ MO [facility] Influenza Virus 2019-01-04 Completed Universit y of Vaccine Quad .5 mL 00:00:00 [place] [facility] 6+ MO [facility] Influenza Virus 2019-01-04 Completed Universit y of Vaccine Quad .5 mL 00:00:00 [place] [facility] 6+ MO [facility] Influenza Virus 2019-01-04 Completed Universit y of Vaccine Quad .5 mL 00:00:00 [facility] 6+ MO Branch (FLUZONE/FLULAVAL/FL UARIX) Influenza [...] y of Vaccine Quad .5 mL 00:00:00 [place] [facility] 6+ MO Branch Influenza Virus 2019-01-04 Completed Universit y of Vaccine Quad .5 mL 00:00:00 [place] [facility] 6+ MO Branch Influenza Virus 2019-01-04 Completed Universit y of Vaccine Quad .5 mL 00:00:00 [place] [facility] 6+ MO [facility] Influenza Virus 2019-01-04 Completed Universit y of Vaccine Quad .5 mL 00:00:00 [place] [facility] 6+ MO Branch Influenza Virus 2019-01-04 Completed Universit y of Vaccine Quad .5 mL 00:00:00 [place] [facility] 6+ MO Branch Influenza Virus 2019-01-04 Completed Universit y of Vaccine Quad .5 mL 00:00:00 [place] [facility] 6+ MO Branch Influenza Virus [...] y of Vaccine Quad .5 mL 00:00:00 [place] [facility] 6+ MO Branch Influenza Virus 2019-01-04 Completed Universit y of Vaccine Quad .5 mL 00:00:00 [place] [facility] 6+ MO Branch Influenza Virus 2019-01-04 Completed Universit y of Vaccine Quad .5 mL 00:00:00 [facility] 6+ MO Branch Influenza Virus 2019-01-04 Completed Universit y of Vaccine Quad .5 mL 00:00:00 [facility] 6+ MO [place] Influenza Virus 2019-01-04 Completed Universit y of Vaccine Quad .5 mL 00:00:00 [facility] 6+ MO [place] Influenza Virus 2019-01-04 Completed Universit y of Vaccine Quad .5 mL 00:00:00 [facility] 6+ MO [place] Influenza Virus 2019-01-04 Completed Universit y of Vaccine Quad .5 mL 00:00:00 [facility] 6+ MO [place] Influenza Virus 2019-01-04 Completed Universit y of Vaccine Quad .5 mL 00:00:00 [facility] 6+ MO [place] Influenza Virus 2019-01-04 Completed Universit y of Vaccine Quad .5 mL 00:00:[address] [place] Influenza Virus 2019-01-04 Completed Universit y of Vaccine Quad .5 mL 00:00:[address] [place] Influenza Virus 2019-01-04 Completed [facility]it y of Vaccine Quad .5 mL 00:00:[address] [place] Influenza Virus 2019-01-04 Completed Universit y of Vaccine Quad .5 mL 00:00:[address] [place] Influenza Virus 2019-01-04 Completed [facility]it y of Vaccine Quad .5 mL 00:00:[address] [place] Influenza Virus 2019-01-04 Completed Universit y of Vaccine Quad .5 mL 00:00:[address] Influenza Virus 2019-01-04 Completed Universit y of Vaccine Quad .5 mL 00:00:00 [place] [address]+ [place] Influenza Virus 2019-01-04 Completed Universit y of Vaccine Quad .5 mL 00:00:[address] [place] Influenza Virus 2019-01-04 Completed Universit y of Vaccine Quad .5 mL 00:00:[address] [place] HPV 2015-04-13 Completed [facility] of 00:00:00 [facility] Meningococcal 2015-04-13 Completed [facility] Polysaccharide 00:00:00 [facility] moiz (groups A, C, Y and Branc h W-135) conjugate vaccine (MCV4P) TDAP (ADACEL) 2015-04-13 Completed University VACCINE 00:00:00 [facility] HPV 2015-04-13 Completed [facility] of 00:00:00 [facility] Meningococcal 2015-04-13 Completed University of Polysaccharide 00:00:00 [place] [facility] (groups A, C, Y and Branc h W-135) conjugate vaccine (MCV4P) TDAP (ADACEL) 2015-04-13 Completed University of VACCINE 00:00:00 [facility] HPV 2015-04-13 Completed [facility] of 00:00:00 [facility] HPV 2015-04-13 Completed [facility] of 00:00:00 [facility] Meningococcal 2015-04-13 Completed University of Polysaccharide 00:00:00 [place] [facility] (groups A, C, Y and Branc h W-135) conjugate vaccine (MCV4P) TDAP (ADACEL) 2015-04-13 Completed [facility] of VACCINE 00:00:00 [facility] Meningococcal 2015-04-13 Completed University of Polysaccharide 00:00:00 [place] [facility] (groups A, C, Y and Branc h W-135) conjugate vaccine (MCV4P) TDAP (ADACEL) 2015-04-13 Completed University of VACCINE 00:00:00 [facility] HPV 2015-04-13 Completed [facility] of 00:00:00 [facility] Meningococcal 2015-04-13 Completed University of Polysaccharide 00:00:00 [place] [facility] (groups A, C, Y and Branc h W-135) conjugate vaccine (MCV4P) TDAP (ADACEL) 2015-04-13 Completed University of VACCINE 00:00:00 [facility] HPV 2015-04-13 Completed [facility] of 00:00:00 [facility] Meningococcal 2015-04-13 Completed University of Polysaccharide 00:00:00 [place] [facility] (groups A, C, Y and Branc h W-135) conjugate vaccine (MCV4P) TDAP (ADACEL) 2015-04-13 Completed [facility] of VACCINE 00:00:00 [facility] HPV 2015-04-13 Completed [facility] of 00:00:00 [facility] Meningococcal 2015-04-13 Completed University of Polysaccharide 00:00:00 [place] [facility] (groups A, C, Y and Branc h W-135) conjugate vaccine (MCV4P) TDAP (ADACEL) 2015-04-13 Completed University of VACCINE 00:00:00 [facility] HPV 2015-04-13 Completed [facility] of 00:00:00 [facility] Meningococcal 2015-04-13 Completed University of Polysaccharide 00:00:00 [place] [facility] (groups A, C, Y and Branc h W-135) conjugate vaccine (MCV4P) TDAP (ADACEL) 2015-04-13 Completed University of VACCINE 00:00:00 [facility] HPV 2015-04-13 Completed University of 00:00:00 [facility] Meningococcal 2015-04-13 Completed University of Polysaccharide 00:00:00 [place] [facility] (groups A, C, Y and Branc h W-135) conjugate vaccine (MCV4P) TDAP (ADACEL) 2015-04-13 Completed University of VACCINE 00:00:00 [facility] HPV 2015-04-13 Completed University of 00:00:00 [facility] Meningococcal 2015-04-13 Completed University of Polysaccharide 00:00:00 [place] [facility] (groups A, C, Y and Branc h W-135) conjugate vaccine (MCV4P) TDAP (ADACEL) 2015-04-13 Completed University of VACCINE 00:00:00 [facility] HPV 2015-04-13 Completed University of 00:00:00 [facility] Meningococcal 2015-04-13 Completed University of Polysaccharide 00:00:00 [place] [facility] (groups A, C, Y and Branc h W-135) conjugate vaccine (MCV4P) TDAP (ADACEL) 2015-04-13 Completed University of VACCINE 00:00:00 [facility] HPV 2015-04-13 Completed University of 00:00:00 [facility] Meningococcal 2015-04-13 Completed University of Polysaccharide 00:00:00 [place] [facility] (groups A, C, Y and Branc h W-135) conjugate vaccine (MCV4P) TDAP (ADACEL) 2015-04-13 Completed University of VACCINE 00:00:00 [facility] HPV 2015-04-13 Completed University of 00:00:00 [facility] Meningococcal 2015-04-13 Completed University of Polysaccharide 00:00:00 [place] [facility] (groups A, C, Y and Branc h W-135) conjugate vaccine (MCV4P) TDAP (ADACEL) 2015-04-13 Completed [facility] VACCINE 00:00:00 [facility] HPV 2015-04-13 Completed [facility] 00:00:00 [facility] Meningococcal 2015-04-13 Completed [facility] Polysaccharide 00:00:00 [place] [facility] (groups A, C, Y and Branc h W-135) conjugate vaccine (MCV4P) TDAP (ADACEL) 2015-04-13 Completed [facility] VACCINE 00:00:00 [facility] HPV 2015-04-13 Completed [facility] 00:00:00 [facility] Meningococcal 2015-04-13 Completed [facility] Polysaccharide 00:00:00 [place] [facility] (groups A, C, Y and Branc h W-135) conjugate vaccine (MCV4P) TDAP (ADACEL) 2015-04-13 Completed [facility] VACCINE 00:00:00 [facility] HPV 2015-04-13 Completed [facility] 00:00:00 [facility] Meningococcal 2015-04-13 Completed [facility] Polysaccharide 00:00:00 [place] [facility] (groups A, C, Y and Branc h W-135) conjugate vaccine (MCV4P) TDAP (ADACEL) 2015-04-13 Completed [facility] VACCINE 00:00:00 [facility] HPV 2015-04-13 Completed [facility] 00:00:00 [facility] Meningococcal 2015-04-13 Completed [facility] Polysaccharide 00:00:00 [place] [facility] (groups A, C, Y and Branc h W-135) conjugate vaccine (MCV4P) TDAP (ADACEL) 2015-04-13 Completed [facility] VACCINE 00:00:00 [facility] HPV 2015-04-13 Completed [facility] 00:00:00 [facility] Meningococcal 2015-04-13 Completed [facility] Polysaccharide 00:00:00 [place] [facility] (groups A, C, Y and Branc h W-135) conjugate vaccine (MCV4P) TDAP (ADACEL) 2015-04-13 Completed [facility] VACCINE 00:00:00 [facility] HPV 2015-04-13 Completed [facility] 00:00:00 [facility] Meningococcal 2015-04-13 Completed [facility] Polysaccharide 00:00:00 [place] [facility] (groups A, C, Y and Branc h W-135) conjugate vaccine (MCV4P) HPV 2015-04-13 Completed [facility] 00:00:00 [facility] Meningococcal 2015-04-13 Completed [facility] Polysaccharide 00:00:00 [place] [facility] (groups A, C, Y and Branc h W-135) conjugate vaccine (MCV4P) TDAP (ADACEL) 2015-04-13 Completed [facility] VACCINE 00:00:00 [facility] TDAP (ADACEL) 2015-04-13 Completed [facility] VACCINE 00:00:00 [facility] HPV 2015-04-13 Completed [facility] 00:00:00 [facility] Meningococcal 2015-04-13 Completed [facility] Polysaccharide 00:00:00 [place] [facility] (groups A, C, Y and Branc h W-135) conjugate vaccine (MCV4P) TDAP (ADACEL) 2015-04-13 Completed [facility] VACCINE 00:00:00 [facility] HPV 2015-04-13 Completed [facility] 00:00:00 [facility] Meningococcal 2015-04-13 Completed [facility] Polysaccharide 00:00:00 [place] [facility] (groups A, C, Y and Branc h W-135) conjugate vaccine (MCV4P) TDAP (ADACEL) 2015-04-13 Completed [facility] VACCINE 00:00:00 [facility] HPV 2015-04-13 Completed [facility] 00:00:00 [facility] Meningococcal 2015-04-13 Completed [facility] Polysaccharide 00:00:00 [place] [facility] (groups A, C, Y and Branc h W-135) conjugate vaccine (MCV4P) TDAP (ADACEL) 2015-04-13 Completed [facility] VACCINE 00:00:00 [facility] HPV 2015-04-13 Completed [facility] 00:00:00 [facility] Meningococcal 2015-04-13 Completed [facility] Polysaccharide 00:00:00 [place] [facility] (groups A, C, Y and Branc h W-135) conjugate vaccine (MCV4P) TDAP (ADACEL) 2015-04-13 Completed [facility] VACCINE 00:00:00 [facility] HPV 2015-04-13 Completed [facility] 00:00:00 [facility] Meningococcal 2015-04-13 Completed [facility] Polysaccharide 00:00:00 [place] [facility] (groups A, C, Y and Branc h W-135) conjugate vaccine (MCV4P) TDAP (ADACEL) 2015-04-13 Completed [facility] VACCINE 00:00:00 [facility] HPV 2015-04-13 Completed [facility] 00:00:00 [facility] Meningococcal 2015-04-13 Completed [facility] Polysaccharide 00:00:00 [place] [facility] (groups A, C, Y and Branc h W-135) conjugate vaccine (MCV4P) TDAP (ADACEL) 2015-04-13 Completed [facility] VACCINE 00:00:00 [facility] HPV 2015-04-13 Completed [facility] 00:00:00 [facility] Meningococcal 2015-04-13 Completed [facility] Polysaccharide 00:00:00 [place] [facility] (groups A, C, Y and Branc h W-135) conjugate vaccine (MCV4P) TDAP (ADACEL) 2015-04-13 Completed [facility] VACCINE 00:00:00 [facility] HPV 2015-04-13 Completed [facility] 00:00:00 [facility] Meningococcal 2015-04-13 Completed [facility] Polysaccharide 00:00:00 [place] [facility] (groups A, C, Y and Branc h W-135) conjugate vaccine (MCV4P) HPV 2015-04-13 Completed [facility] 00:00:00 [facility] Meningococcal 2015-04-13 Completed [facility] Polysaccharide 00:00:00 [place] [facility] (groups A, C, Y and Branc h W-135) conjugate vaccine (MCV4P) TDAP (ADACEL) 2015-04-13 Completed [facility] VACCINE 00:00:00 [facility] TDAP (ADACEL) 2015-04-13 Completed [facility] VACCINE 00:00:00 [facility] HPV 2015-04-13 Completed [facility] 00:00:00 [facility] Meningococcal 2015-04-13 Completed [facility] Polysaccharide 00:00:00 [place] [facility] (groups A, C, Y and Branc h W-135) conjugate vaccine (MCV4P) TDAP (ADACEL) 2015-04-13 Completed [facility] VACCINE 00:00:00 [facility] HPV 2015-04-13 Completed [facility] 00:00:00 [facility] Meningococcal 2015-04-13 Completed [facility] Polysaccharide 00:00:00 [place] [facility] (groups A, C, Y and Branc h W-135) conjugate vaccine (MCV4P) TDAP (ADACEL) 2015-04-13 Completed [facility] VACCINE 00:00:00 [facility] HPV 2015-04-13 Completed [facility] 00:00:00 [facility] Meningococcal 2015-04-13 Completed [facility] Polysaccharide 00:00:00 [place] [facility] (groups A, C, Y and Branc h W-135) conjugate vaccine (MCV4P) TDAP (ADACEL) 2015-04-13 Completed [facility] VACCINE 00:00:00 [facility] HPV 2015-04-13 Completed [facility] 00:00:00 [facility] Meningococcal 2015-04-13 Completed [facility] Polysaccharide 00:00:00 [place] [facility] (groups A, C, Y and Branc h W-135) conjugate vaccine (MCV4P) TDAP (ADACEL) 2015-04-13 Completed [facility] VACCINE 00:00:00 [facility] HPV 2015-04-13 Completed [facility] 00:00:00 [facility] Meningococcal 2015-04-13 Completed [facility] Polysaccharide 00:00:00 [place] [facility] (groups A, C, Y and Branc h W-135) conjugate vaccine (MCV4P) TDAP (ADACEL) 2015-04-13 Completed [facility] VACCINE 00:00:00 [facility] HPV 2015-04-13 Completed [facility] 00:00:00 [facility] Meningococcal 2015-04-13 Completed [facility] Polysaccharide 00:00:00 [place] [facility] (groups A, C, Y and Branc h W-135) conjugate vaccine (MCV4P) TDAP (ADACEL) 2015-04-13 Completed [facility] VACCINE 00:00:00 [facility] HPV 2015-04-13 Completed [facility] 00:00:00 [facility] Meningococcal 2015-04-13 Completed [facility] Polysaccharide 00:00:00 [place] [facility] (groups A, C, Y and Branc h W-135) conjugate vaccine (MCV4P) TDAP (ADACEL) 2015-04-13 Completed [facility] VACCINE 00:00:00 [facility] HPV 2015-04-13 Completed [facility] 00:00:00 [facility] Meningococcal 2015-04-13 Completed [facility] Polysaccharide 00:00:00 [place] [facility] (groups A, C, Y and Branc h W-135) conjugate vaccine (MCV4P) TDAP (ADACEL) 2015-04-13 Completed [facility] VACCINE 00:00:00 [facility] HPV 2012-06-29 Completed [facility] 00:00:00 [facility] HPV 2012-06-29 Completed [facility] 00:00:00 [facility] HPV 2012-06-29 Completed [facility] 00:00:00 [facility] HPV 2012-06-29 Completed [facility] 00:00:00 [facility] HPV 2012-06-29 Completed [facility] 00:00:00 [facility] HPV 2012-06-29 Completed [facility] 00:00:00 [facility] HPV 2012-06-29 Completed [facility] 00:00:00 [facility] HPV 2012-06-29 Completed [facility] 00:00:00 [facility] HPV 2012-06-29 Completed [facility] 00:00:00 [facility] HPV 2012-06-29 Completed [facility] 00:00:00 [facility] HPV 2012-06-29 Completed [facility] 00:00:00 [facility] HPV 2012-06-29 Completed [facility] 00:00:00 [facility] HPV 2012-06-29 Completed [facility] 00:00:00 [facility] HPV 2012-06-29 Completed [facility] 00:00:00 [facility] HPV 2012-06-29 Completed [facility] 00:00:00 [facility] HPV 2012-06-29 Completed [facility] 00:00:00 [facility] HPV 2012-06-29 Completed [facility] 00:00:00 [facility] HPV 2012-06-29 Completed [facility] 00:00:00 [facility] HPV 2012-06-29 Completed [facility] 00:00:00 [facility] HPV 2012-06-29 Completed [facility] 00:00:00 [facility] HPV 2012-06-29 Completed [facility] 00:00:00 [facility] HPV 2012-06-29 Completed [facility] 00:00:00 [facility] HPV 2012-06-29 Completed [facility] 00:00:00 [facility] HPV 2012-06-29 Completed [facility] 00:00:00 [facility] Tetanus/Diptheria 2009-12-12 Completed [facility] 00:00:00 [facility] Meningococcal 2009-12-12 Completed [facility] Polysaccharide 00:00:00 [place] [facility] (groups A, C, Y and Branc h W-135) conjugate vaccine (MCV4P) Varicella 2009-12-12 Completed [facility] (varivax)(chicken 00:00:00 [place] [facility] pox) [facility] HEPATITIS A 2009-12-12 Completed [facility] 00:00:00 [facility] Tetanus/Diptheria 2009-12-12 Completed [facility] 00:00:00 [facility] Meningococcal 2009-12-12 Completed [facility] Polysaccharide 00:00:00 [place] [facility] (groups A, C, Y and Branc h W-135) conjugate vaccine (MCV4P) Varicella 2009-12-12 Completed [facility] (varivax)(chicken 00:00:00 [place] [facility] pox) [facility] HEPATITIS A 2009-12-12 Completed [facility] 00:00:00 [facility] Tetanus/Diptheria 2009-12-12 Completed [facility] 00:00:00 [facility] Meningococcal 2009-12-12 Completed [facility] Polysaccharide 00:00:00 [place] [facility] (groups A, C, Y and Branc h W-135) conjugate vaccine (MCV4P) Varicella 2009-12-12 Completed [facility] (varivax)(chicken 00:00:00 [place] [facility] pox) [facility] HEPATITIS A 2009-12-12 Completed [facility] 00:00:00 [facility] Tetanus/Diptheria 2009-12-12 Completed [facility] 00:00:00 [facility] Meningococcal 2009-12-12 Completed [facility] Polysaccharide 00:00:00 [place] [facility] (groups A, C, Y and Branc h W-135) conjugate vaccine (MCV4P) Varicella 2009-12-12 Completed [facility] (varivax)(chicken 00:00:00 [place] [facility] pox) [facility] HEPATITIS A 2009-12-12 Completed [facility] 00:00:00 [facility] Tetanus/Diptheria 2009-12-12 Completed [facility] 00:00:00 [facility] Meningococcal 2009-12-12 Completed [facility] Polysaccharide 00:00:00 [place] [facility] (groups A, C, Y and Branc h W-135) conjugate vaccine (MCV4P) Varicella 2009-12-12 Completed [facility] (varivax)(chicken 00:00:00 [place] [facility] pox) [facility] HEPATITIS A 2009-12-12 Completed [facility] 00:00:00 [facility] Tetanus/Diptheria 2009-12-12 Completed [facility] 00:00:00 [facility] Meningococcal 2009-12-12 Completed [facility] Polysaccharide 00:00:00 [place] [facility] (groups A, C, Y and Branc h W-135) conjugate vaccine (MCV4P) Varicella 2009-12-12 Completed [facility] (varivax)(chicken 00:00:00 [place] [facility] pox) [facility] HEPATITIS A 2009-12-12 Completed [facility] 00:00:00 [facility] Tetanus/Diptheria 2009-12-12 Completed [facility] 00:00:00 [facility] Meningococcal 2009-12-12 Completed [facility] Polysaccharide 00:00:00 [place] [facility] (groups A, C, Y and Branc h W-135) conjugate vaccine (MCV4P) Varicella 2009-12-12 Completed [facility] (varivax)(chicken 00:00:00 [place] [facility] pox) [facility] HEPATITIS A 2009-12-12 Completed [facility] 00:00:00 [facility] Tetanus/Diptheria 2009-12-12 Completed [facility] 00:00:00 [facility] Meningococcal 2009-12-12 Completed [facility] Polysaccharide 00:00:00 [place] [facility] (groups A, C, Y and Branc h W-135) conjugate vaccine (MCV4P) Varicella 2009-12-12 Completed [facility] (varivax)(chicken 00:00:00 [place] [facility] pox) [facility] HEPATITIS A 2009-12-12 Completed [facility] 00:00:00 [facility] Tetanus/Diptheria 2009-12-12 Completed [facility] 00:00:00 [facility] Meningococcal 2009-12-12 Completed [facility] Polysaccharide 00:00:00 [place] [facility] (groups A, C, Y and Branc h W-135) conjugate vaccine (MCV4P) Varicella 2009-12-12 Completed [facility] (varivax)(chicken 00:00:00 [place] [facility] pox) [facility] Meningococcal 2009-12-12 Completed [facility] Polysaccharide 00:00:00 [place] [facility] (groups A, C, Y and Branc h W-135) conjugate vaccine (MCV4P) Varicella 2009-12-12 Completed [facility] (varivax)(chicken 00:00:00 [place] [facility] pox) [facility] Meningococcal 2009-12-12 Completed [facility] Polysaccharide 00:00:00 [place] [facility] (groups A, C, Y and Branc h W-135) conjugate vaccine (MCV4P) Varicella 2009-12-12 Completed [facility] (varivax)(chicken 00:00:00 [place] [facility] pox) [facility] Meningococcal 2009-12-12 Completed [facility] Polysaccharide 00:00:00 [place] [facility] (groups A, C, Y and Branc h W-135) conjugate vaccine (MCV4P) Varicella 2009-12-12 Completed [facility] (varivax)(chicken 00:00:00 [place] [facility] pox) [facility] HEPATITIS A 2009-12-12 Completed [facility] 00:00:00 [facility] Tetanus/Diptheria 2009-12-12 Completed [facility] 00:00:00 [facility] Meningococcal 2009-12-12 Completed [facility] Polysaccharide 00:00:00 [facility] moiz (groups A, C, Y and Branc h W-135) conjugate vaccine (MCV4P) Varicella 2009-12-12 Completed [facility] (varivax)(chicken 00:00:00 [place] [facility] pox) [facility] HEPATITIS A 2009-12-12 Completed [facility] 00:00:00 [facility] Tetanus/Diptheria 2009-12-12 Completed [facility] 00:00:00 [facility] Meningococcal 2009-12-12 Completed [facility] Polysaccharide 00:00:00 [facility] moiz (groups A, C, Y and Branc h W-135) conjugate vaccine (MCV4P) Varicella 2009-12-12 Completed [facility] (varivax)(chicken 00:00:00 [place] [facility] pox) [facility] HEPATITIS A 2009-12-12 Completed [facility] 00:00:00 [facility] Tetanus/Diptheria 2009-12-12 Completed [facility] 00:00:00 [facility] Meningococcal 2009-12-12 Completed [facility] Polysaccharide 00:00:00 [facility] moiz (groups A, C, Y and Branc h W-135) conjugate vaccine (MCV4P) Varicella 2009-12-12 Completed [facility] (varivax)(chicken 00:00:00 [place] [facility] pox) Branch HEPATITIS A 2009-12-12 Completed [facility] 00:00:00 [facility] Tetanus/Diptheria 2009-12-12 Completed [facility] 00:00:00 [facility] Meningococcal 2009-12-12 Completed [facility] Polysaccharide 00:00:00 [facility] moiz (groups A, C, Y and Branc h W-135) conjugate vaccine (MCV4P) Varicella 2009-12-12 Completed [facility] (varivax)(chicken 00:00:00 [place] [facility] pox) [facility] HEPATITIS A 2009-12-12 Completed [facility] 00:00:00 [facility] Tetanus/Diptheria 2009-12-12 Completed [facility] 00:00:00 [facility] Meningococcal 2009-12-12 Completed [facility] Polysaccharide 00:00:00 [facility] moiz (groups A, C, Y and Branc h W-135) conjugate vaccine (MCV4P) Varicella 2009-12-12 Completed [facility] (varivax)(chicken 00:00:00 [place] [facility] pox) [facility] HEPATITIS A 2009-12-12 Completed [facility] 00:00:00 [facility] Tetanus/Diptheria 2009-12-12 Completed [facility] 00:00:00 [facility] Meningococcal 2009-12-12 Completed [facility] Polysaccharide 00:00:00 [place] [facility] (groups A, C, Y and Branc h W-135) conjugate vaccine (MCV4P) Varicella 2009-12-12 Completed [facility] (varivax)(chicken 00:00:00 [place] [facility] pox) [facility] HEPATITIS A 2009-12-12 Completed [facility] 00:00:00 [facility] Tetanus/Diptheria 2009-12-12 Completed [facility] 00:00:00 [facility] Meningococcal 2009-12-12 Completed [facility] Polysaccharide 00:00:00 [place] [facility] (groups A, C, Y and Branc h W-135) conjugate vaccine (MCV4P) Varicella 2009-12-12 Completed [facility] (varivax)(chicken 00:00:00 [place] [facility] pox) [facility] HEPATITIS A 2009-12-12 Completed [facility] 00:00:00 [facility] Tetanus/Diptheria 2009-12-12 Completed [facility] 00:00:00 [facility] Meningococcal 2009-12-12 Completed [facility] Polysaccharide 00:00:00 [place] [facility] (groups A, C, Y and Branc h W-135) conjugate vaccine (MCV4P) Varicella 2009-12-12 Completed [facility] (varivax)(chicken 00:00:00 [place] [facility] pox) Branch HEPATITIS A 2009-12-12 Completed [facility] 00:00:00 [facility] Tetanus/Diptheria 2009-12-12 Completed [facility] 00:00:00 [facility] Meningococcal 2009-12-12 Completed [facility] Polysaccharide 00:00:00 [place] [facility] (groups A, C, Y and Branc h W-135) conjugate vaccine (MCV4P) Varicella 2009-12-12 Completed [facility] (varivax)(chicken 00:00:00 [place] [facility] pox) [facility] HEPATITIS A 2009-12-12 Completed [facility] 00:00:00 [facility] Tetanus/Diptheria 2009-12-12 Completed [facility] 00:00:00 [facility] Meningococcal 2009-12-12 Completed [facility] Polysaccharide 00:00:00 [place] [facility] (groups A, C, Y and Branc h W-135) conjugate vaccine (MCV4P) Varicella 2009-12-12 Completed [facility] (varivax)(chicken 00:00:00 [place] [facility] pox) Branch HEPATITIS A 2009-12-12 Completed [facility] 00:00:00 [facility] Tetanus/Diptheria 2009-12-12 Completed [facility] 00:00:00 [facility] Meningococcal 2009-12-12 Completed [facility] Polysaccharide 00:00:00 [facility] moiz (groups A, C, Y and Branc h W-135) conjugate vaccine (MCV4P) Varicella 2009-12-12 Completed [facility] (varivax)(chicken 00:00:00 [place] [facility] pox) [facility] HEPATITIS A 2009-12-12 Completed [facility] 00:00:00 [facility] Tetanus/Diptheria 2009-12-12 Completed [facility] 00:00:00 [facility] Meningococcal 2009-12-12 Completed [facility] of Polysaccharide 00:00:00 [facility] moiz (groups A, C, Y and Branc h W-135) conjugate vaccine (MCV4P) Varicella 2009-12-12 Completed [facility] (varivax)(chicken 00:00:00 [place] [facility] pox) [facility] HEPATITIS A 2009-12-12 Completed [facility] 00:00:00 [facility] DTaP, Unspecified 2003-04-28 Completed Univers [facility] of Formulation 00:00:00 [facility] MMR 2003-04-28 Completed [facility] 00:00:00 [facility] IPV 2003-04-28 Completed [facility] 00:00:00 [facility] DTaP, Unspecified 2003-04-28 Completed [facility] Formulation 00:00:00 [facility] MMR 2003-04-28 Completed [facility] 00:00:00 [facility] IPV 2003-04-28 Completed [facility] 00:00:00 [facility] DTaP, Unspecified 2003-04-28 Completed [facility] Formulation 00:00:00 [facility] MMR 2003-04-28 Completed [facility] 00:00:00 [facility] IPV 2003-04-28 Completed [facility] 00:00:00 [facility] DTaP, Unspecified 2003-04-28 Completed [facility] Formulation 00:00:00 [facility] MMR 2003-04-28 Completed [facility] 00:00:00 [facility] IPV 2003-04-28 Completed [facility] 00:00:00 [facility] DTaP, Unspecified 2003-04-28 Completed [facility] Formulation 00:00:00 [facility] MMR 2003-04-28 Completed [facility] 00:00:00 [facility] IPV 2003-04-28 Completed [facility] 00:00:00 [facility] DTaP, Unspecified 2003-04-28 Completed [facility] Formulation 00:00:00 [facility] MMR 2003-04-28 Completed [facility] 00:00:00 [facility] IPV 2003-04-28 Completed [facility] 00:00:00 [facility] DTaP, Unspecified 2003-04-28 Completed [facility] Formulation 00:00:00 [facility] MMR 2003-04-28 Completed [facility] 00:00:00 [facility] IPV 2003-04-28 Completed [facility] 00:00:00 [facility] DTaP, Unspecified 2003-04-28 Completed [facility] Formulation 00:00:00 [facility] MMR 2003-04-28 Completed [facility] 00:00:00 [facility] IPV 2003-04-28 Completed [facility] 00:00:00 [facility] DTaP, Unspecified 2003-04-28 Completed [facility] Formulation 00:00:00 [facility] MMR 2003-04-28 Completed [facility] 00:00:00 [facility] IPV 2003-04-28 Completed [facility] 00:00:00 [facility] DTaP, Unspecified 2003-04-28 Completed [facility] Formulation 00:00:00 [facility] MMR 2003-04-28 Completed [facility] 00:00:00 [facility] IPV 2003-04-28 Completed [facility] 00:00:00 [facility] DTaP, Unspecified 2003-04-28 Completed [facility] Formulation 00:00:00 [facility] MMR 2003-04-28 Completed [facility] 00:00:00 [facility] IPV 2003-04-28 Completed [facility] 00:00:00 [facility] DTaP, Unspecified 2003-04-28 Completed [facility] Formulation 00:00:00 [facility] MMR 2003-04-28 Completed [facility] 00:00:00 [facility] IPV 2003-04-28 Completed [facility] 00:00:00 [facility] DTaP, Unspecified 2003-04-28 Completed [facility] Formulation 00:00:00 [facility] MMR 2003-04-28 Completed [facility] 00:00:00 [facility] IPV 2003-04-28 Completed [facility] 00:00:00 [facility] DTaP, Unspecified 2003-04-28 Completed [facility] Formulation 00:00:00 [facility] MMR 2003-04-28 Completed [facility] 00:00:00 [facility] IPV 2003-04-28 Completed [facility] 00:00:00 [facility] DTaP, Unspecified 2003-04-28 Completed [facility] Formulation 00:00:00 [facility] MMR 2003-04-28 Completed [facility] 00:00:00 [facility] IPV 2003-04-28 Completed [facility] 00:00:00 [facility] DTaP, Unspecified 2003-04-28 Completed [facility] Formulation 00:00:00 [facility] MMR 2003-04-28 Completed [facility] 00:00:00 [facility] IPV 2003-04-28 Completed [facility] 00:00:00 [facility] DTaP, Unspecified 2003-04-28 Completed [facility] Formulation 00:00:00 [facility] MMR 2003-04-28 Completed [facility] 00:00:00 [facility] IPV 2003-04-28 Completed [facility] 00:00:00 [facility] DTaP, Unspecified 2003-04-28 Completed [facility] Formulation 00:00:00 [facility] MMR 2003-04-28 Completed [facility] 00:00:00 [facility] IPV 2003-04-28 Completed [facility] 00:00:00 [facility] DTaP, Unspecified 2003-04-28 Completed [facility] Formulation 00:00:00 [facility] MMR 2003-04-28 Completed [facility] 00:00:00 [facility] IPV 2003-04-28 Completed [facility] 00:00:00 [facility] DTaP, Unspecified 2003-04-28 Completed [facility] Formulation 00:00:00 [facility] MMR 2003-04-28 Completed [facility] 00:00:00 [facility] IPV 2003-04-28 Completed [facility] 00:00:00 [facility] DTaP, Unspecified 2003-04-28 Completed [facility] Formulation 00:00:00 [facility] MMR 2003-04-28 Completed [facility] 00:00:00 [facility] IPV 2003-04-28 Completed [facility] 00:00:00 [facility] HIB 4 Dose Schedule 2002-11-11 Completed Unive rsity of 00:00:00 [facility] Hep B, Adol or Pedi 2002-11-11 Completed [facility]ive rs[facility] of Dosage 00:00:00 [facility] MMR 2002-11-11 Completed [facility] 00:00:00 [facility] DTaP, Unspecified 2002-11-11 Completed [facility] Formulation 00:00:00 [facility] Polio (IPV/OPV) 2002-11-11 Completed [facility] 00:00:00 [facility] IPV 2002-11-11 Completed [facility] 00:00:00 [facility] Varicella 2002-11-11 Completed University of (varivax)(chicken 00:00:00 [facility] edical pox) Branch DTAP 2002-11-11 Completed [facility] 00:00:00 [facility] Hep B, Adol or Pedi 2002-11-11 Completed Unive rsity of Dosage 00:00:00 [facility] HIB 4 Dose Schedule 2002-11-11 Completed Unive rsity of 00:00:00 [facility] DTaP, Unspecified 2002-11-11 Completed [facility] it[facility] Formulation 00:00:00 [facility] Polio (IPV/OPV) 2002-11-11 Completed [facility] 00:00:00 [facility] IPV 2002-11-11 Completed [facility] 00:00:00 [facility] MMR 2002-11-11 Completed [facility] 00:00:00 [facility] Varicella 2002-11-11 Completed [facility] of (varivax)(chicken 00:00:00 [place] [facility] pox) [facility] DTaP, Unspecified 2002-11-11 Completed [facility] Formulation 00:00:00 [facility] IPV 2002-11-11 Completed [facility] 00:00:00 [facility] DTaP, Unspecified 2002-11-11 Completed [facility] Formulation 00:00:00 [facility] IPV 2002-11-11 Completed [facility] 00:00:00 [facility] DTaP, Unspecified 2002-11-11 Completed [facility] it[facility] Formulation 00:00:00 [facility] IPV 2002-11-11 Completed [facility] 00:00:00 [facility] DTAP 2002-11-11 Completed [facility] 00:00:00 [facility] HIB 4 Dose Schedule 2002-11-11 Completed Unive rsity of 00:00:00 [facility] Hep B, Adol or Pedi 2002-11-11 Completed [facility]ive rsity of Dosage 00:00:00 [facility] DTaP, Unspecified 2002-11-11 Completed [facility] Formulation 00:00:00 [facility] MMR 2002-11-11 Completed [facility] 00:00:00 [facility] IPV 2002-11-11 Completed [facility] 00:00:00 [facility] Polio (IPV/OPV) 2002-11-11 Completed [facility] 00:00:00 [facility] Varicella 2002-11-11 Completed [facility] of (varivax)(chicken 00:00:00 [place] [facility] pox) [facility] DTAP 2002-11-11 Completed [facility] 00:00:00 [facility] Hep B, Adol or Pedi 2002-11-11 Completed Unive rsity of Dosage 00:00:00 [facility] DTaP, Unspecified 2002-11-11 Completed [facility] of Formulation 00:00:00 [facility] HIB 4 Dose Schedule 2002-11-11 Completed Unive rsity of 00:00:00 [facility] IPV 2002-11-11 Completed [facility] 00:00:00 [facility] Polio (IPV/OPV) 2002-11-11 Completed [facility] 00:00:00 [facility] MMR 2002-11-11 Completed [facility] 00:00:00 [facility] DTaP, Unspecified 2002-11-11 Completed [facility] it[facility] Formulation 00:00:00 [facility] Varicella 2002-11-11 Completed [facility] of (varivax)(chicken 00:00:00 [place] [facility] pox) [facility] IPV 2002-11-11 Completed [facility] 00:00:00 [facility] DTAP 2002-11-11 Completed [facility] 00:00:00 [facility] HIB 4 Dose Schedule 2002-11-11 Completed Unive rsity of 00:00:00 [facility] Hep B, Adol or Pedi 2002-11-11 Completed Unive rsity of Dosage 00:00:00 [facility] MMR 2002-11-11 Completed [facility] 00:00:00 [facility] Polio (IPV/OPV) 2002-11-11 Completed [facility] 00:00:00 [facility] Varicella 2002-11-11 Completed [facility] of (varivax)(chicken 00:00:00 [place] [facility] pox) [facility] DTAP 2002-11-11 Completed [facility] 00:00:00 [facility] Hep B, Adol or Pedi 2002-11-11 Completed Unive rsity of Dosage 00:00:00 [facility] HIB 4 Dose Schedule 2002-11-11 Completed Unive rsity of 00:00:00 [facility] Polio (IPV/OPV) 2002-11-11 Completed [facility] 00:00:00 [facility] MMR 2002-11-11 Completed [facility] 00:00:00 [facility] Varicella 2002-11-11 Completed [facility] of (varivax)(chicken 00:00:00 [place] [facility] pox) [facility] DTAP 2002-11-11 Completed [facility] 00:00:00 [facility] HIB 4 Dose Schedule 2002-11-11 Completed Unive rsity of 00:00:00 [facility] Hep B, Adol or Pedi 2002-11-11 Completed Unive rsity of Dosage 00:00:00 [facility] MMR 2002-11-11 Completed [facility] 00:00:00 [facility] Polio (IPV/OPV) 2002-11-11 Completed [facility] 00:00:00 [facility] Varicella 2002-11-11 Completed [facility] of (varivax)(chicken 00:00:00 [place] [facility] pox) [facility] DTAP 2002-11-11 Completed [facility] 00:00:00 [facility] Hep B, Adol or Pedi 2002-11-11 Completed Unive rsity of Dosage 00:00:00 [facility] HIB 4 Dose Schedule 2002-11-11 Completed Unive rsity of 00:00:00 [facility] Polio (IPV/OPV) 2002-11-11 Completed [facility] 00:00:00 [facility] MMR 2002-11-11 Completed [facility] 00:00:00 [facility] Varicella 2002-11-11 Completed [facility] of (varivax)(chicken 00:00:00 [place] [facility] pox) [facility] DTAP 2002-11-11 Completed [facility] 00:00:00 [facility] HIB 4 Dose Schedule 2002-11-11 Completed Unive rsity of 00:00:00 [facility] Hep B, Adol or Pedi 2002-11-11 Completed Unive rsity of Dosage 00:00:00 [facility] MMR 2002-11-11 Completed [facility] 00:00:00 [facility] Polio (IPV/OPV) 2002-11-11 Completed [facility] 00:00:00 [facility] Varicella 2002-11-11 Completed [facility] of (varivax)(chicken 00:00:00 [place] [facility] pox) [facility] DTAP 2002-11-11 Completed [facility] 00:00:00 [facility] Hep B, Adol or Pedi 2002-11-11 Completed Unive rsity of Dosage 00:00:00 [facility] HIB 4 Dose Schedule 2002-11-11 Completed Unive rsity of 00:00:00 [facility] Polio (IPV/OPV) 2002-11-11 Completed [facility] 00:00:00 [facility] MMR 2002-11-11 Completed [facility] 00:00:00 [facility] Varicella 2002-11-11 Completed [facility] of (varivax)(chicken 00:00:00 [place] [facility] pox) [facility] DTAP 2002-11-11 Completed [facility] 00:00:00 [facility] HIB 4 Dose Schedule 2002-11-11 Completed Unive rsity of 00:00:00 [facility] Hep B, Adol or Pedi 2002-11-11 Completed [facility]ive rsity of Dosage 00:00:00 [facility] MMR 2002-11-11 Completed [facility] 00:00:00 [facility] Polio (IPV/OPV) 2002-11-11 Completed [facility] 00:00:00 [facility] Varicella 2002-11-11 Completed [facility] of (varivax)(chicken 00:00:00 [place] [facility] pox) [facility] DTAP 2002-11-11 Completed [facility] 00:00:00 [facility] Hep B, Adol or Pedi 2002-11-11 Completed Unive rsity of Dosage 00:00:00 [facility] HIB 4 Dose Schedule 2002-11-11 Completed Unive rsity of 00:00:00 [facility] Polio (IPV/OPV) 2002-11-11 Completed [facility] 00:00:00 [facility] MMR 2002-11-11 Completed [facility] 00:00:00 [facility] Varicella 2002-11-11 Completed [facility] of (varivax)(chicken 00:00:00 [place] [facility] pox) [facility] DTAP 2002-11-11 Completed [facility] 00:00:00 [facility] DTAP 2002-11-11 Completed [facility] 00:00:00 [facility] HIB 4 Dose Schedule 2002-11-11 Completed Unive rsity of 00:00:00 [facility] HIB 4 Dose Schedule 2002-11-11 Completed Unive rsity of 00:00:00 [facility] Hep B, Adol or Pedi 2002-11-11 Completed [facility]ive rsity of Dosage 00:00:00 [facility] MMR 2002-11-11 Completed [facility] 00:00:00 [facility] Polio (IPV/OPV) 2002-11-11 Completed [facility] 00:00:00 [facility] Varicella 2002-11-11 Completed [facility] of (varivax)(chicken 00:00:00 [place] [facility] pox) [facility] DTAP 2002-11-11 Completed [facility] 00:00:00 [facility] Hep B, Adol or Pedi 2002-11-11 Completed Unive rsity of Dosage 00:00:00 [facility] HIB 4 Dose Schedule 2002-11-11 Completed Unive rsity of 00:00:00 [facility] Polio (IPV/OPV) 2002-11-11 Completed [facility] 00:00:00 [facility] MMR 2002-11-11 Completed [facility] 00:00:00 [facility] Hep B, Adol or Pedi 2002-11-11 Completed Unive rsity of Dosage 00:00:00 [facility] Varicella 2002-11-11 Completed [facility] of (varivax)(chicken 00:00:00 [place] [facility] pox) [facility] MMR 2002-11-11 Completed [facility] 00:00:00 [facility] DTAP 2002-11-11 Completed [facility] 00:00:00 [facility] HIB 4 Dose Schedule 2002-11-11 Completed Unive rsity of 00:00:00 [facility] Hep B, Adol or Pedi 2002-11-11 Completed [facility]ive rsity of Dosage 00:00:00 [facility] MMR 2002-11-11 Completed [facility] 00:00:00 [facility] Polio (IPV/OPV) 2002-11-11 Completed [facility] 00:00:00 [facility] Varicella 2002-11-11 Completed [facility] (varivax)(chicken 00:00:00 [place] [facility] pox) [facility] Polio (IPV/OPV) 2002-11-11 Completed [facility] 00:00:00 [facility] DTAP 2002-11-11 Completed [facility] 00:00:00 [facility] Hep B, Adol or Pedi 2002-11-11 Completed [facility]ive rs[facility] of Dosage 00:00:00 [facility] HIB 4 Dose Schedule 2002-11-11 Completed [facility]ive rsity of 00:00:00 [facility] Polio (IPV/OPV) 2002-11-11 Completed [facility] 00:00:00 [facility] MMR 2002-11-11 Completed [facility] 00:00:00 [facility] Varicella 2002-11-11 Completed [facility] of (varivax)(chicken 00:00:00 [facility] edical pox) Branch Varicella 2002-11-11 Completed [facility] of (varivax)(chicken 00:00:00 [place] [facility] pox) [facility] DTAP 2002-11-11 Completed [facility] 00:00:00 [facility] DTAP 2002-11-11 Completed [facility] 00:00:00 [facility] HIB 4 Dose Schedule 2002-11-11 Completed Unive rsity of 00:00:00 [facility] Hep B, Adol or Pedi 2002-11-11 Completed [facility]ive rsity of Dosage 00:00:00 [facility] MMR 2002-11-11 Completed [facility] 00:00:00 [facility] Polio (IPV/OPV) 2002-11-11 Completed [facility] 00:00:00 [facility] Varicella 2002-11-11 Completed [facility] of (varivax)(chicken 00:00:00 [facility] edical pox) Branch DTAP 2002-11-11 Completed [facility] 00:00:00 [facility] Hep B, Adol or Pedi 2002-11-11 Completed Unive rsity of Dosage 00:00:00 [facility] HIB 4 Dose Schedule 2002-11-11 Completed Unive rsity of 00:00:00 [facility] Hep B, Adol or Pedi 2002-11-11 Completed [facility] rs[facility] of Dosage 00:00:00 [facility] Polio (IPV/OPV) 2002-11-11 Completed [facility] 00:00:00 [facility] MMR 2002-11-11 Completed [facility] 00:00:00 [facility] Varicella 2002-11-11 Completed [facility] of (varivax)(chicken 00:00:00 [place] [facility] pox) [facility] HIB 4 Dose Schedule 2002-11-11 Completed Unive rsity of 00:00:00 [facility] DTAP 2002-11-11 Completed [facility] 00:00:00 [facility] HIB 4 Dose Schedule 2002-11-11 Completed Unive rsity of 00:00:00 [facility] Hep B, Adol or Pedi 2002-11-11 Completed [facility]ive rsity of Dosage 00:00:00 [facility] MMR 2002-11-11 Completed [facility] 00:00:00 [facility] Polio (IPV/OPV) 2002-11-11 Completed [facility] 00:00:00 [facility] Varicella 2002-11-11 Completed [facility] of (varivax)(chicken 00:00:00 [facility] edical pox) Branch Polio (IPV/OPV) 2002-11-11 Completed [facility] 00:00:00 [facility] DTAP 2002-11-11 Completed [facility] 00:00:00 [facility] Hep B, Adol or Pedi 2002-11-11 Completed [facility]ive rs[facility] of Dosage 00:00:00 [facility] HIB 4 Dose Schedule 2002-11-11 Completed [facility]ive rsity of 00:00:00 [facility] Polio (IPV/OPV) 2002-11-11 Completed [facility] 00:00:00 [facility] MMR 2002-11-11 Completed [facility] 00:00:00 [facility] Varicella 2002-11-11 Completed [facility] of (varivax)(chicken 00:00:00 [place] [facility] pox) [facility] MMR 2002-11-11 Completed [facility] 00:00:00 [facility] Varicella 2002-11-11 Completed [facility] of (varivax)(chicken 00:00:00 [place] [facility] pox) Branch DTAP 2002-11-11 Completed [facility] 00:00:00 [facility] HIB 4 Dose Schedule 2002-11-11 Completed [facility]ive rs[facility] of 00:00:00 [facility] Hep B, Adol or Pedi 2002-11-11 Completed [facility] rs[facility] of Dosage 00:00:00 [facility] MMR 2002-11-11 Completed [facility] 00:00:00 [facility] Polio (IPV/OPV) 2002-11-11 Completed [facility] 00:00:00 [facility] Varicella 2002-11-11 Completed [facility] (varivax)(chicken 00:00:00 [place] [facility] pox) [facility] DTAP 2002-11-11 Completed [facility] 00:00:00 [facility] Hep B, Adol or Pedi 2002-11-11 Completed [facility]ive rsity of Dosage 00:00:00 [facility] HIB 4 Dose Schedule 2002-11-11 Completed [facility]ive rsity of 00:00:00 [facility] Polio (IPV/OPV) 2002-11-11 Completed [facility] 00:00:00 [facility] MMR 2002-11-11 Completed [facility] 00:00:00 [facility] Varicella 2002-11-11 Completed [facility] of (varivax)(chicken 00:00:00 [place] [facility] pox) [facility] DTAP 2002-11-11 Completed [facility] 00:00:00 [facility] HIB 4 Dose Schedule 2002-11-11 Completed [facility] rsity of 00:00:00 [facility] Hep B, Adol or Pedi 2002-11-11 Completed [facility] rs[facility] of Dosage 00:00:00 [facility] MMR 2002-11-11 Completed [facility] 00:00:00 [facility] Polio (IPV/OPV) 2002-11-11 Completed [facility] 00:00:00 [facility] Varicella 2002-11-11 Completed [facility] of (varivax)(chicken 00:00:00 [place] [facility] pox) [facility] DTAP 2002-11-11 Completed [facility] 00:00:00 [facility] Hep B, Adol or Pedi 2002-11-11 Completed [facility]ive rsity of Dosage 00:00:00 [facility] HIB 4 Dose Schedule 2002-11-11 Completed [facility]ive rsity of 00:00:00 [facility] Polio (IPV/OPV) 2002-11-11 Completed [facility] 00:00:00 [facility] MMR 2002-11-11 Completed [facility] 00:00:00 [facility] Varicella 2002-11-11 Completed [facility] of (varivax)(chicken 00:00:00 [place] [facility] pox) [facility] DTAP 2002-11-11 Completed [facility] 00:00:00 [facility] HIB 4 Dose Schedule 2002-11-11 Completed Unive rsity of 00:00:00 [facility] Hep B, Adol or Pedi 2002-11-11 Completed [facility]ive rsity of Dosage 00:00:00 [facility] MMR 2002-11-11 Completed [facility] 00:00:00 [facility] Polio (IPV/OPV) 2002-11-11 Completed [facility] 00:00:00 [facility] Varicella 2002-11-11 Completed [facility] of (varivax)(chicken 00:00:00 [place] [facility] pox) [facility] DTAP 2002-11-11 Completed [facility] 00:00:00 [facility] Hep B, Adol or Pedi 2002-11-11 Completed Unive rsity of Dosage 00:00:00 [facility] HIB 4 Dose Schedule 2002-11-11 Completed [facility]ive rsity of 00:00:00 [facility] Polio (IPV/OPV) 2002-11-11 Completed [facility] 00:00:00 [facility] MMR 2002-11-11 Completed [facility] 00:00:00 [facility] Varicella 2002-11-11 Completed [facility] of (varivax)(chicken 00:00:00 [facility] edical pox) Branch DTaP, Unspecified 2002-11-11 Completed Univers ity of Formulation 00:00:00 [facility] IPV 2002-11-11 Completed [facility] 00:00:00 [facility] DTAP 2002-11-11 Completed [facility] 00:00:00 [facility] HIB 4 Dose Schedule 2002-11-11 Completed [facility]ive rsity of 00:00:00 [facility] DTaP, Unspecified 2002-11-11 Completed [facility] ity of Formulation 00:00:00 [facility] IPV 2002-11-11 Completed [facility] 00:00:00 [facility] Hep B, Adol or Pedi 2002-11-11 Completed [facility]ive rsity of Dosage 00:00:00 [facility] MMR 2002-11-11 Completed [facility] 00:00:00 [facility] Polio (IPV/OPV) 2002-11-11 Completed [facility] 00:00:00 [facility] DTaP, Unspecified 2002-11-11 Completed [facility] ity of Formulation 00:00:00 [facility] Varicella 2002-11-11 Completed [facility] of (varivax)(chicken 00:00:00 [place] [facility] pox) [facility] IPV 2002-11-11 Completed [facility] 00:00:00 [facility] DTAP 2002-11-11 Completed [facility] 00:00:00 [facility] Hep B, Adol or Pedi 2002-11-11 Completed [facility]ive rsity of Dosage 00:00:00 [facility] DTaP, Unspecified 2002-11-11 Completed [facility] Formulation 00:00:00 [facility] HIB 4 Dose Schedule 2002-11-11 Completed Unive rsity of 00:00:00 [facility] IPV 2002-11-11 Completed [facility] 00:00:00 [facility] Polio (IPV/OPV) 2002-11-11 Completed [facility] 00:00:00 [facility] MMR 2002-11-11 Completed [facility] 00:00:00 [facility] DTaP, Unspecified 2002-11-11 Completed [facility] of Formulation 00:00:00 [facility] Varicella 2002-11-11 Completed [facility] of (varivax)(chicken 00:00:00 [place] [facility] pox) [facility] IPV 2002-11-11 Completed [facility] 00:00:00 [facility] DTaP, Unspecified 2002-11-11 Completed [facility] it[facility] of Formulation 00:00:00 [facility] IPV 2002-11-11 Completed [facility] 00:00:00 [facility] DTaP, Unspecified 2002-11-11 Completed [facility] Formulation 00:00:00 [facility] IPV 2002-11-11 Completed [facility] 00:00:00 [facility] DTAP 2002-11-11 Completed [facility] 00:00:00 [facility] HIB 4 Dose Schedule 2002-11-11 Completed [facility] rsity of 00:00:00 [facility] DTaP, Unspecified 2002-11-11 Completed [facility] Formulation 00:00:00 [facility] Hep B, Adol or Pedi 2002-11-11 Completed [facility]ive rsity of Dosage 00:00:00 [facility] IPV 2002-11-11 Completed [facility] 00:00:00 [facility] MMR 2002-11-11 Completed [facility] 00:00:00 [facility] Polio (IPV/OPV) 2002-11-11 Completed [facility] 00:00:00 [facility] DTaP, Unspecified 2002-11-11 Completed [facility] Formulation 00:00:00 [facility] Varicella 2002-11-11 Completed [facility] of (varivax)(chicken 00:00:00 [place] [facility] pox) [facility] IPV 2002-11-11 Completed [facility] 00:00:00 [facility] DTAP 2002-11-11 Completed [facility] 00:00:00 [facility] Hep B, Adol or Pedi 2002-11-11 Completed [facility]ive rsity of Dosage 00:00:00 [facility] DTaP, Unspecified 2002-11-11 Completed [facility] Formulation 00:00:00 [facility] HIB 4 Dose Schedule 2002-11-11 Completed [facility]ive rsity of 00:00:00 [facility] IPV 2002-11-11 Completed [facility] 00:00:00 [facility] Polio (IPV/OPV) 2002-11-11 Completed [facility] 00:00:00 [facility] MMR 2002-11-11 Completed [facility] 00:00:00 [facility] Varicella 2002-11-11 Completed [facility] of (varivax)(chicken 00:00:00 [facility] edical pox) Branch DTaP, Unspecified 2002-11-11 Completed [facility] it[facility] of Formulation 00:00:00 [facility] IPV 2002-11-11 Completed [facility] 00:00:00 [facility] DTaP, Unspecified 2002-11-11 Completed [facility] Formulation 00:00:00 [facility] IPV 2002-11-11 Completed [facility] 00:00:00 [facility] DTaP, Unspecified 2002-11-11 Completed [facility] Formulation 00:00:00 [facility] DTAP 2002-11-11 Completed [facility] 00:00:00 [facility] IPV 2002-11-11 Completed [facility] 00:00:00 [facility] Poliovirus, Live, 1999-05-14 Completed Univers ity of Oral, Trivalent 00:00:00 [facility] ical Branch DTaP, Unspecified 1999-05-14 Completed [facility] Formulation 00:00:00 [facility] HIB 4 Dose Schedule 1999-05-14 Completed Unive rsity of 00:00:00 [facility] Poliovirus, Live, 1999-05-14 Completed [facility] Oral, Trivalent 00:00:00 [facility] [place] DTaP, Unspecified 1999-05-14 Completed [facility] Formulation 00:00:00 [facility] HIB 4 Dose Schedule 1999-05-14 Completed Unive rsity of 00:00:00 [facility] Poliovirus, Live, 1999-05-14 Completed [facility] of Oral, Trivalent 00:00:00 [facility] DTaP, Unspecified 1999-05-14 Completed [facility] Formulation 00:00:00 [facility] HIB 4 Dose Schedule 1999-05-14 Completed [facility] rsity of 00:00:00 [facility] Poliovirus, Live, 1999-05-14 Completed [facility] of Oral, Trivalent 00:00:00 [facility] DTaP, Unspecified 1999-05-14 Completed [facility] Formulation 00:00:00 [facility] HIB 4 Dose Schedule 1999-05-14 Completed Unive rsity of 00:00:00 [facility] Poliovirus, Live, 1999-05-14 Completed [facility] of Oral, Trivalent 00:00:00 [facility] DTaP, Unspecified 1999-05-14 Completed [facility] Formulation 00:00:00 [facility] HIB 4 Dose Schedule 1999-05-14 Completed Unive rsity of 00:00:00 [facility] Poliovirus, Live, 1999-05-14 Completed [facility] of Oral, Trivalent 00:00:00 [facility] DTaP, Unspecified 1999-05-14 Completed [facility] Formulation 00:00:00 [facility] HIB 4 Dose Schedule 1999-05-14 Completed [facility] rsity of 00:00:00 [facility] Poliovirus, Live, 1999-05-14 Completed [facility] of Oral, Trivalent 00:00:00 [facility] DTaP, Unspecified 1999-05-14 Completed [facility] of Formulation 00:00:00 [facility] HIB 4 Dose Schedule 1999-05-14 Completed [facility] rsity of 00:00:00 [facility] Poliovirus, Live, 1999-05-14 Completed [facility] of Oral, Trivalent 00:00:00 [facility] DTaP, Unspecified 1999-05-14 Completed [facility] of Formulation 00:00:00 [facility] HIB 4 Dose Schedule 1999-05-14 Completed [facility] rsity of 00:00:00 [facility] Poliovirus, Live, 1999-05-14 Completed [facility] of Oral, Trivalent 00:00:00 [facility] DTaP, Unspecified 1999-05-14 Completed [facility] Formulation 00:00:00 [facility] HIB 4 Dose Schedule 1999-05-14 Completed [facility]ive rsity of 00:00:00 [facility] Poliovirus, Live, 1999-05-14 Completed [facility] of Oral, Trivalent 00:00:00 [facility] DTaP, Unspecified 1999-05-14 Completed [facility] of Formulation 00:00:00 [facility] HIB 4 Dose Schedule 1999-05-14 Completed Unive rsity of 00:00:00 [facility] Poliovirus, Live, 1999-05-14 Completed [facility] of Oral, Trivalent 00:00:00 [facility] DTaP, Unspecified 1999-05-14 Completed [facility] of Formulation 00:00:00 [facility] HIB 4 Dose Schedule 1999-05-14 Completed [facility] rsity of 00:00:00 [facility] Poliovirus, Live, 1999-05-14 Completed [facility] of Oral, Trivalent 00:00:00 [facility] DTaP, Unspecified 1999-05-14 Completed [facility] of Formulation 00:00:00 [facility] HIB 4 Dose Schedule 1999-05-14 Completed [facility]ive rsity of 00:00:00 [facility] Poliovirus, Live, 1999-05-14 Completed [facility] of Oral, Trivalent 00:00:00 [facility] DTaP, Unspecified 1999-05-14 Completed [facility] of Formulation 00:00:00 [facility] HIB 4 Dose Schedule 1999-05-14 Completed Unive rsity of 00:00:00 [facility] Poliovirus, Live, 1999-05-14 Completed [facility] of Oral, Trivalent 00:00:00 [facility] DTaP, Unspecified 1999-05-14 Completed [facility] Formulation 00:00:00 [facility] HIB 4 Dose Schedule 1999-05-14 Completed [facility] rsity of 00:00:00 [facility] Poliovirus, Live, 1999-05-14 Completed [facility] of Oral, Trivalent 00:00:00 [facility] DTaP, Unspecified 1999-05-14 Completed [facility] Formulation 00:00:00 [facility] HIB 4 Dose Schedule 1999-05-14 Completed [facility] rsity of 00:00:00 [facility] Poliovirus, Live, 1999-05-14 Completed [facility] of Oral, Trivalent 00:00:00 [facility] DTaP, Unspecified 1999-05-14 Completed [facility] of Formulation 00:00:00 [facility] HIB 4 Dose Schedule 1999-05-14 Completed [facility]ive rsity of 00:00:00 [facility] Poliovirus, Live, 1999-05-14 Completed [facility] of Oral, Trivalent 00:00:00 [facility] DTaP, Unspecified 1999-05-14 Completed [facility] Formulation 00:00:00 [facility] HIB 4 Dose Schedule 1999-05-14 Completed [facility]ive rsity of 00:00:00 [facility] Poliovirus, Live, 1999-05-14 Completed [facility] of Oral, Trivalent 00:00:00 [facility] DTaP, Unspecified 1999-05-14 Completed [facility] Formulation 00:00:00 [facility] HIB 4 Dose Schedule 1999-05-14 Completed [facility]ive rsity of 00:00:00 [facility] Poliovirus, Live, 1999-05-14 Completed [facility] of Oral, Trivalent 00:00:00 [facility] DTaP, Unspecified 1999-05-14 Completed [facility] Formulation 00:00:00 [facility] HIB 4 Dose Schedule 1999-05-14 Completed Unive rsity of 00:00:00 [facility] Poliovirus, Live, 1999-05-14 Completed [facility] of Oral, Trivalent 00:00:00 [facility] DTaP, Unspecified 1999-05-14 Completed [facility] Formulation 00:00:00 [facility] HIB 4 Dose Schedule 1999-05-14 Completed [facility]ive rsity of 00:00:00 [facility] Poliovirus, Live, 1999-05-14 Completed [facility] of Oral, Trivalent 00:00:00 [facility] DTaP, Unspecified 1999-05-14 Completed [facility] of Formulation 00:00:00 [facility] HIB 4 Dose Schedule 1999-05-14 Completed Unive rsity of 00:00:00 [facility] Poliovirus, Live, 1999-01-26 Completed [facility] of Oral, Trivalent 00:00:00 [facility] DTaP, Unspecified 1999-01-26 Completed [facility] Formulation 00:00:00 [facility] Hep B, Adol or Pedi 1999-01-26 Completed Unive rsity of Dosage 00:00:00 [facility] HIB 4 Dose Schedule 1999-01-26 Completed Unive rsity of 00:00:00 [facility] Poliovirus, Live, 1999-01-26 Completed [facility] of Oral, Trivalent 00:00:00 [facility] DTaP, Unspecified 1999-01-26 Completed [facility] Formulation 00:00:00 [facility] Hep B, Adol or Pedi 1999-01-26 Completed [facility]ive rsity of Dosage 00:00:00 [facility] HIB 4 Dose Schedule 1999-01-26 Completed Unive rsity of 00:00:00 [facility] Poliovirus, Live, 1999-01-26 Completed [facility] of Oral, Trivalent 00:00:00 [facility] DTaP, Unspecified 1999-01-26 Completed [facility] Formulation 00:00:00 [facility] Hep B, Adol or Pedi 1999-01-26 Completed [facility]ive rsity of Dosage 00:00:00 [facility] HIB 4 Dose Schedule 1999-01-26 Completed Unive rsity of 00:00:00 [facility] Poliovirus, Live, 1999-01-26 Completed [facility] of Oral, Trivalent 00:00:00 [facility] DTaP, Unspecified 1999-01-26 Completed [facility] Formulation 00:00:00 [facility] Hep B, Adol or Pedi 1999-01-26 Completed [facility]ive rsity of Dosage 00:00:00 [facility] HIB 4 Dose Schedule 1999-01-26 Completed Unive rsity of 00:00:00 [facility] Poliovirus, Live, 1999-01-26 Completed [facility] of Oral, Trivalent 00:00:00 [facility] DTaP, Unspecified 1999-01-26 Completed [facility] Formulation 00:00:00 [facility] Hep B, Adol or Pedi 1999-01-26 Completed [facility]ive rsity of Dosage 00:00:00 [facility] HIB 4 Dose Schedule 1999-01-26 Completed Unive rsity of 00:00:00 [facility] Poliovirus, Live, 1999-01-26 Completed [facility] of Oral, Trivalent 00:00:00 [facility] DTaP, Unspecified 1999-01-26 Completed [facility] Formulation 00:00:00 [facility] Hep B, Adol or Pedi 1999-01-26 Completed [facility]ive rsity of Dosage 00:00:00 [facility] HIB 4 Dose Schedule 1999-01-26 Completed Unive rsity of 00:00:00 [facility] Poliovirus, Live, 1999-01-26 Completed [facility] of Oral, Trivalent 00:00:00 [facility] DTaP, Unspecified 1999-01-26 Completed [facility] of Formulation 00:00:00 [facility] Hep B, Adol or Pedi 1999-01-26 Completed [facility]ive rsity of Dosage 00:00:00 [facility] HIB 4 Dose Schedule 1999-01-26 Completed Unive rsity of 00:00:00 [facility] Poliovirus, Live, 1999-01-26 Completed [facility] of Oral, Trivalent 00:00:00 [facility] DTaP, Unspecified 1999-01-26 Completed [facility] Formulation 00:00:00 [facility] Hep B, Adol or Pedi 1999-01-26 Completed [facility]ive rsity of Dosage 00:00:00 [facility] HIB 4 Dose Schedule 1999-01-26 Completed Unive rsity of 00:00:00 [facility] Poliovirus, Live, 1999-01-26 Completed [facility] of Oral, Trivalent 00:00:00 [facility] DTaP, Unspecified 1999-01-26 Completed [facility] Formulation 00:00:00 [facility] Hep B, Adol or Pedi 1999-01-26 Completed [facility] rsity of Dosage 00:00:00 [facility] HIB 4 Dose Schedule 1999-01-26 Completed Unive rsity of 00:00:00 [facility] Poliovirus, Live, 1999-01-26 Completed [facility] of Oral, Trivalent 00:00:00 [facility] DTaP, Unspecified 1999-01-26 Completed [facility] Formulation 00:00:00 [facility] Hep B, Adol or Pedi 1999-01-26 Completed [facility] rsity of Dosage 00:00:00 [facility] HIB 4 Dose Schedule 1999-01-26 Completed Unive rsity of 00:00:00 [facility] Poliovirus, Live, 1999-01-26 Completed [facility] Oral, Trivalent 00:00:00 [facility] DTaP, Unspecified 1999-01-26 Completed [facility] of Formulation 00:00:00 [facility] Hep B, Adol or Pedi 1999-01-26 Completed [facility]ive rsity of Dosage 00:00:00 [facility] HIB 4 Dose Schedule 1999-01-26 Completed Unive rsity of 00:00:00 [facility] Poliovirus, Live, 1999-01-26 Completed [facility] of Oral, Trivalent 00:00:00 [facility] DTaP, Unspecified 1999-01-26 Completed [facility] Formulation 00:00:00 [facility] Hep B, Adol or Pedi 1999-01-26 Completed [facility] rsity of Dosage 00:00:00 [facility] HIB 4 Dose Schedule 1999-01-26 Completed Unive rsity of 00:00:00 [facility] Poliovirus, Live, 1999-01-26 Completed [facility] of Oral, Trivalent 00:00:00 [facility] DTaP, Unspecified 1999-01-26 Completed [facility] Formulation 00:00:00 [facility] Hep B, Adol or Pedi 1999-01-26 Completed [facility] rsity of Dosage 00:00:00 [facility] HIB 4 Dose Schedule 1999-01-26 Completed Unive rsity of 00:00:00 [facility] Poliovirus, Live, 1999-01-26 Completed [facility] of Oral, Trivalent 00:00:00 [facility] DTaP, Unspecified 1999-01-26 Completed [facility] of Formulation 00:00:00 [facility] Hep B, Adol or Pedi 1999-01-26 Completed [facility] rsity of Dosage 00:00:00 [facility] HIB 4 Dose Schedule 1999-01-26 Completed Unive rsity of 00:00:00 [facility] Poliovirus, Live, 1999-01-26 Completed [facility] of Oral, Trivalent 00:00:00 [facility] DTaP, Unspecified 1999-01-26 Completed [facility] Formulation 00:00:00 [facility] Hep B, Adol or Pedi 1999-01-26 Completed [facility] rs[facility] of Dosage 00:00:00 [facility] HIB 4 Dose Schedule 1999-01-26 Completed Un[facility] rsity of 00:00:00 [facility] Poliovirus, Live, 1999-01-26 Completed [facility] of Oral, Trivalent 00:00:00 [facility] DTaP, Unspecified 1999-01-26 Completed [facility] Formulation 00:00:00 [facility] Hep B, Adol or Pedi 1999-01-26 Completed [facility] rs[facility] of Dosage 00:00:00 [facility] HIB 4 Dose Schedule 1999-01-26 Completed Un[facility] rsity of 00:00:00 [facility] Poliovirus, Live, 1999-01-26 Completed [facility] of Oral, Trivalent 00:00:00 [facility] DTaP, Unspecified 1999-01-26 Completed [facility] Formulation 00:00:00 [facility] Hep B, Adol or Pedi 1999-01-26 Completed [facility] rsity of Dosage 00:00:00 [facility] HIB 4 Dose Schedule 1999-01-26 Completed [facility] rs[facility] of 00:00:00 [facility] Poliovirus, Live, 1999-01-26 Completed [facility] of Oral, Trivalent 00:00:00 [facility] DTaP, Unspecified 1999-01-26 Completed [facility] Formulation 00:00:00 [facility] Hep B, Adol or Pedi 1999-01-26 Completed [facility] rsity of Dosage 00:00:00 [facility] HIB 4 Dose Schedule 1999-01-26 Completed [facility] rsity of 00:00:00 [facility] Poliovirus, Live, 1999-01-26 Completed [facility] of Oral, Trivalent 00:00:00 [facility] DTaP, Unspecified 1999-01-26 Completed [facility] Formulation 00:00:00 [facility] Hep B, Adol or Pedi 1999-01-26 Completed [facility] rs[facility] of Dosage 00:00:00 [facility] HIB 4 Dose Schedule 1999-01-26 Completed [facility] rs[facility] of 00:00:00 [facility] Poliovirus, Live, 1999-01-26 Completed [facility] of Oral, Trivalent 00:00:00 [facility] DTaP, Unspecified 1999-01-26 Completed [facility] Formulation 00:00:00 [facility] Hep B, Adol or Pedi 1999-01-26 Completed [facility] rsity of Dosage 00:00:00 [facility] HIB 4 Dose Schedule 1999-01-26 Completed [facility] rsity of 00:00:00 [facility] Poliovirus, Live, 1999-01-26 Completed [facility] of Oral, Trivalent 00:00:00 [facility] DTaP, Unspecified 1999-01-26 Completed [facility] Formulation 00:00:00 [facility] Hep B, Adol or Pedi 1999-01-26 Completed [facility] rs[facility] of Dosage 00:00:00 [facility] HIB 4 Dose Schedule 1999-01-26 Completed [facility] of 00:00:00 [facility] Hep B, Adol or Pedi 1998 Completed Unive rsity of Dosage 00:00:00 [facility] Hep B, Adol or Pedi 1998 Completed [facility] of Dosage 00:00:00 [facility] Hep B, Adol or Pedi 1998 Completed [facility] rs[facility] of Dosage 00:00:00 [facility] Hep B, Adol or Pedi 1998 Completed [facility] rs[facility] of Dosage 00:00:00 [facility] Hep B, Adol or Pedi 1998 Completed [facility] rs[facility] of Dosage 00:00:00 [facility] Hep B, Adol or Pedi 1998 Completed [facility] of Dosage 00:00:00 [facility] Hep B, Adol or Pedi 1998 Completed [facility] of Dosage 00:00:00 [facility] Hep B, Adol or Pedi 1998 Completed [facility] of Dosage 00:00:00 [facility] Hep B, Adol or Pedi 1998 Completed [facility] of Dosage 00:00:00 [facility] Hep B, Adol or Pedi 1998 Completed [facility] of Dosage 00:00:00 [facility] Hep B, Adol or Pedi 1998 Completed [facility] rs[facility] of Dosage 00:00:00 [facility] Hep B, Adol or Pedi 1998 Completed [facility] rs[facility] of Dosage 00:00:00 [facility] Hep B, Adol or Pedi 1998 Completed [facility] of Dosage 00:00:00 [facility] Hep B, Adol or Pedi 1998 Completed [facility] rs[facility] of Dosage 00:00:00 [facility] Hep B, Adol or Pedi 1998 Completed [facility] rs[facility] of Dosage 00:00:00 [facility] Hep B, Adol or Pedi 1998 Completed [facility] rs[facility] of Dosage 00:00:00 [facility] Hep B, Adol or Pedi 1998 Completed [facility] rs[facility] of Dosage 00:00:00 [facility] Hep B, Adol or Pedi 1998 Completed [facility] rs[facility] of Dosage 00:00:00 [facility] Hep B, Adol or Pedi 1998 Completed [facility] rs[facility] of Dosage 00:00:00 [facility] Hep B, Adol or Pedi 1998 Completed [facility] rs[facility] of Dosage 00:00:00 [facility] Hep B, Adol or Pedi 1998 Completed [facility] of Dosage 00:00:00 [facility] HPV Unknown Completed [facility] Meningococcal Unknown Completed [facility] Polysaccharide [facility] moiz (groups A, C, Y and Branc h W-135) conjugate vaccine (MCV4P) TDAP (ADACEL) Unknown Completed [facility] Influenza Virus Unknown Completed [facility] y of Vaccine Quad .5 mL [facility] 6+ MO Branch (FLUZONE/FLULAVAL/FL UARIX) TDAP (ADACEL) Unknown Completed [facility] VACCINE [facility] TDAP (ADACEL) Unknown Completed [facility] Influenza Virus Unknown Completed [facility]it y of Vaccine Quad .5 mL [facility] 6+ MO Branch (FLUZONE/FLULAVAL/FL UARIX) HPV Unknown Completed [facility] Meningococcal Unknown Completed [facility] Polysaccharide [facility] moiz (groups A, C, Y and Branc h W-135) conjugate vaccine (MCV4P) Varicella Unknown Completed [facility] (varivax)(chicken [place] [facility]) [facility] SARS-COV-2 COVID-19 Unknown Completed Unive rsity of VACCINE - (MODERNA) [facility] SARS-COV-2 COVID-19 Unknown Completed [facility]ive rs[facility] of VACCINE - (MODERNA) [facility] DTaP, Unspecified Unknown Completed [facility] DTaP, Unspecified Unknown Completed [facility] DTaP, Unspecified Unknown Completed [facility] DTaP, Unspecified Unknown Completed [facility] HEPATITIS A Unknown Completed [facility] Hep B, Adol or Pedi Unknown Completed [facility] rsity [facility] Dosage [facility] Hep B, Adol or Pedi Unknown Completed [facility] rs[facility] Dosage [facility] HIB 4 Dose Schedule [facility] D[facility] Completed Unive [facility] MMR Unknown Completed [facility] IPV Unknown Completed [facility] IPV Unknown Completed [facility] Poliovirus, Live, Unknown Completed [facility] of Oral, Trivalent [facility] ical Branch Poliovirus, Live, Unknown Completed [facility] of Oral, Trivalent [facility] Tetanus/Diptheria Unknown Completed Univers ity [facility] HPV Unknown Completed [facility] Meningococcal Unknown Completed [facility] (groups A, C, Y and Branc h W-135) conjugate vaccine (MCV4P) TDAP (ADACEL) Unknown Completed [facility] Influenza Virus Unknown Completed [facility] of Vaccine Quad .5 mL [facility] IM 6+ MO Branch (FLUZONE/FLULAVAL/FL UARIX) TDAP (ADACEL) Unknown Completed [facility] TDAP (ADACEL) Unknown Completed [facility] Influenza Virus Unknown Completed [facility] of Vaccine Quad .5 mL [facility] IM 6+ MO Branch (FLUZONE/FLULAVAL/FL UARIX) HPV Unknown Completed [facility] Meningococcal Unknown Completed [facility] (groups A, C, Y and Branc h W-135) conjugate vaccine (MCV4P) Varicella Unknown Completed [facility] (varivax)(chicken [place] [facility] [place] SARS-COV-2 COVID-19 Unknown Completed Unive rsity of VACCINE - (MODERNA) [facility] SARS-COV-2 COVID-19 Unknown Completed Unive rsity of VACCINE - (MODERNA) [facility] DTaP, Unspecified Unknown Completed [facility] Form[facility] DTaP, Unspecified Unknown Completed [facility] DTaP, Unspecified Unknown Completed [facility] DTaP, Unspecified Unknown Completed [facility] HEPATITIS A Unknown Completed [facility] Hep B, Adol or Pedi Unknown Completed [facility] rs[facility] Dosage [facility] Hep B, Adol or Pedi Unknown Completed [facility] rs[facility] Dosage [facility] HIB 4 Dose Schedule Unknown [facility] D[facility] Completed [facility] IPV Unknown Completed [facility] IPV Unknown Completed [facility] Poliovirus, Live, Unknown Completed [facility] ity of Oral, Trivalent [facility] ical Branch Poliovirus, Live, Unknown Completed [facility]y of Oral, Trivalent [facility] Tetanus/Diptheria Unknown Completed Univers [facility] HPV Unknown Completed [facility] Meningococcal Unknown Completed [facility] Polysaccharide [facility] (groups A, C, Y and Branc h W-135) conjugate vaccine (MCV4P) TDAP (ADACEL) Unknown Completed [facility] Influenza Virus Unknown Completed [facility] of Vaccine Quad .5 mL [facility] IM 6+ MO Branch (FLUZONE/FLULAVAL/FL UARIX) TDAP (ADACEL) Unknown Completed [facility] TDAP (ADACEL) Unknown Completed [facility] Influenza Virus Unknown Completed [facility] of Vaccine Quad .5 mL [facility] IM 6+ MO Branch (FLUZONE/FLULAVAL/FL UARIX) HPV Unknown Completed [facility] Meningococcal Unknown Completed [facility] (groups A, C, Y and Branc h W-135) conjugate vaccine (MCV4P) Varicella Unknown Completed [facility] (varivax)([facility] [place] [facility] SARS-COV-2 COVID-19 Unknown Completed Unive rsity of VACCINE - (MODERNA) [facility] SARS-COV-2 COVID-19 Unknown Completed Unive rsity of VACCINE - (MODERNA) [facility] DTaP, Unspecified Unknown Completed Univers ity of Formulation [facility] DTaP, Unspecified Unknown Completed Univers ity of Formulation [facility] DTaP, Unspecified Unknown Completed Univers ity of Formulation [facility] DTaP, Unspecified Unknown Completed Univers ity of Formulation [facility] HEPATITIS A Unknown Completed [facility] Hep B, Adol or Pedi Unknown Completed Unive rsity of Dosage [facility] Hep B, Adol or Pedi Unknown Completed Unive rsity of Dosage [facility] HIB 4 Dose Schedule Unknown Completed Unive rsity [facility] HIB 4 Dose Schedule [facility] IPV Unknown Completed [facility] IPV Unknown Completed [facility] Poliovirus, Live, Unknown Completed Univers ity of Oral, Trivalent [facility] ical Branch Poliovirus, Live, Unknown Completed Univers ity of Oral, Trivalent [facility] ica Branch Tetanus/Diptheria Unknown Completed Univers ity [facility] HPV Unknown Completed [facility] Meningococcal Unknown Completed [facility] Polysaccharide [facility] moiz (groups A, C, Y and Branc h W-135) conjugate vaccine (MCV4P) TDAP (ADACEL) Unknown Completed [facility] Influenza Virus Unknown Completed Universit y of Vaccine Quad .5 mL [facility] IM 6+ MO Branch (FLUZONE/FLULAVAL/FL UARIX) TDAP (ADACEL) Unknown Completed [facility] TDAP (ADACEL) Unknown Completed [facility] Influenza Virus Unknown Completed Universit y of Vaccine Quad .5 mL [facility] IM 6+ [facility] Branch (FLUZONE/FLULAVAL/FL UARIX) HPV Unknown Completed [facility] Meningococcal Unknown Completed [facility] Polysaccharide [facility] (groups A, C, Y and Branc h W-135) conjugate vaccine (MCV4P) Varicella Unknown Completed [facility] (varivax)(chicken [place] [facility]) [place] SARS-COV-2 COVID-19 Unknown Completed Unive rsity of VACCINE - (MODERNA) [facility] SARS-COV-2 COVID-19 Unknown Completed Unive rsity of VACCINE - (MODERNA) [facility] DTaP, Unspecified Unknown Completed Univers ity of Formulation [facility] DTaP, Unspecified Unknown Completed [facility] ity of Formulation [facility] DTaP, Unspecified Unknown Completed [facility] ity of Formulation [facility] DTaP, Unspecified Unknown Completed [facility] ity of Formulation [facility] HEPATITIS A Unknown Completed [facility] Hep B, Adol or Pedi Unknown Completed Unive rsity of Dosage [facility] Hep B, Adol or Pedi Unknown Completed Unive rsity of Dosage [facility] HIB 4 Dose Schedule Unknown Completed Unive rsity [facility] HIB 4 Dose Schedule Unknown Completed Unive rsity [facility] MMR Unknown Completed [facility] IPV Unknown Completed [facility] IPV Unknown Completed [facility] Poliovirus, Live, Unknown Completed Univers ity of Oral, Trivalent [facility] ical Branch Poliovirus, Live, Unknown Completed Univers ity of Oral, Trivalent [facility] ical Branch Tetanus/Diptheria Unknown Completed Univers ity [facility] HPV Unknown Completed [facility] Meningococcal Unknown Completed [facility] Polysaccharide [facility] moiz (groups A, C, Y and Branc h W-135) conjugate vaccine (MCV4P) TDAP (ADACEL) Unknown Completed [facility] Influenza Virus Unknown Completed Universit y of Vaccine Quad .5 mL [facility] IM 6+ MO Branch (FLUZONE/FLULAVAL/FL UARIX) TDAP (ADACEL) Unknown Completed [facility] TDAP (ADACEL) Unknown Completed [facility] Influenza Virus Unknown Completed Universit y of Vaccine Quad .5 mL [facility] IM 6+ MO Branch (FLUZONE/FLULAVAL/FL UARIX) HPV Unknown Completed [facility] Meningococcal Unknown Completed [facility] Polysaccharide [facility] (groups A, C, Y and Branc h W-135) conjugate vaccine (MCV4P) Varicella Unknown Completed [facility] (varivax)(chicken [place] [facility]) [place] SARS-COV-2 COVID-19 Unknown Completed Unive rsity of VACCINE - (MODERNA) [facility] DTaP, Unspecified Unknown Completed [facility] ity of Formulation [facility] DTaP, Unspecified Unknown Completed [facility] ity of Formulation [facility] DTaP, Unspecified Unknown Completed [facility] ity of Formulation [facility] DTaP, Unspecified Unknown Completed [facility] ity of Formulation [facility] HEPATITIS A Unknown Completed [facility] Hep B, Adol or Pedi Unknown Completed Unive rsity of Dosage [facility] Hep B, Adol or Pedi Unknown Completed Unive rsity of Dosage [facility] HIB 4 Dose Schedule Unknown [facility] D[facility] Completed [facility] IPV Unknown Completed [facility] IPV Unknown Completed [facility] Poliovirus, Live, Unknown Completed [facility]y [facility] Oral, Trivalent [facility] Poliovirus, Live, Unknown Completed Univers ity of Oral, Trivalent [facility] Branch Tetanus/Diptheria Unknown Completed [facility] HPV Unknown Completed [facility] Meningococcal Unknown Completed [facility] Polysaccharide [facility] (groups A, C, Y and Branc h W-135) conjugate vaccine (MCV4P) TDAP (ADACEL) Unknown Completed [facility] Influenza Virus Unknown Completed Universit y of Vaccine Quad .5 mL [facility] IM 6+ MO Branch (FLUZONE/FLULAVAL/FL UARIX) TDAP (ADACEL) Unknown Completed [facility] VACCINE [facility] TDAP (ADACEL) Unknown Completed [facility] Influenza Virus Unknown Completed Universit y of Vaccine Quad .5 mL [facility] IM 6+ MO Branch (FLUZONE/FLULAVAL/FL UARIX) HPV Unknown Completed [facility] Meningococcal Unknown Completed [facility] (groups A, C, Y and Branc h W-135) conjugate vaccine (MCV4P) Varicella Unknown Completed [facility] (varivax)(chicken [place] [facility]) [place] SARS-COV-2 COVID-19 Unknown Completed Unive rsity of VACCINE - (MODERNA) [facility] SARS-COV-2 COVID-19 Unknown Completed Unive rsity of VACCINE - (MODERNA) [facility] DTaP, Unspecified Unknown Completed [facility] ity of Formulation [facility] DTaP, Unspecified Unknown Completed [facility] ity of Formulation [facility] DTaP, Unspecified Unknown Completed [facility] ity of Formulation [facility] DTaP, Unspecified Unknown Completed [facility] ity of Formulation [facility] HEPATITIS A Unknown Completed [facility] Hep B, Adol or Pedi Unknown Completed Unive rsity of Dosage [facility] Hep B, Adol or Pedi Unknown Completed Unive rsity of Dosage [facility] HIB 4 Dose Schedule Unknown [facility] 4 Dose Schedule Unknown [facility] Unknown Completed [facility] IPV Unknown Completed [facility] IPV Unknown Completed [facility] Poliovirus, Live, Unknown Completed Univers ity of Oral, Trivalent [facility] Poliovirus, Live, Unknown Completed Univers ity of Oral, Trivalent [facility] Tetanus/Diptheria Unknown Completed [facility] HPV Unknown Completed [facility] Meningococcal Unknown Completed [facility] Polysaccharide [facility] (groups A, C, Y and Branc h W-135) conjugate vaccine (MCV4P) TDAP (ADACEL) Unknown Completed [facility] Influenza Virus Unknown Completed Universit y of Vaccine Quad .5 mL [facility] IM 6+ MO Branch (FLUZONE/FLULAVAL/FL UARIX) TDAP (ADACEL) Unknown Completed [facility] TDAP (ADACEL) Unknown Completed [facility] Influenza Virus Unknown Completed Universit y of Vaccine Quad .5 mL [facility] IM 6+ MO Branch (FLUZONE/FLULAVAL/FL UARIX) HPV Unknown Completed [facility] Meningococcal Unknown Completed [facility] (groups A, C, Y and Branc h W-135) conjugate vaccine (MCV4P) Varicella Unknown Completed [facility] (varivax)(chicken [place] [facility]) [place] SARS-COV-2 COVID-19 Unknown Completed Unive rsity of VACCINE - (MODERNA) [facility] SARS-COV-2 COVID-19 Unknown Completed Unive rsity of VACCINE - (MODERNA) [facility] DTaP, Unspecified Unknown Completed [facility] ity of Formulation [facility] DTaP, Unspecified Unknown Completed [facility] ity of Formulation [facility] DTaP, Unspecified Unknown Completed [facility] ity of Formulation [facility] DTaP, Unspecified Unknown Completed [facility] ity of Formulation [facility] HEPATITIS A Unknown Completed [facility] Hep B, Adol or Pedi Unknown Completed Unive rsity of Dosage [facility] Hep B, Adol or Pedi Unknown Completed Unive rsity of Dosage [facility] HIB 4 Dose Schedule Unknown [facility] 4 Dose Schedule Unknown [facility] Unknown Completed [facility] IPV Unknown Completed [facility] IPV Unknown Completed [facility] Poliovirus, Live, Unknown Completed Univers ity of Oral, Trivalent [place] [facility] Poliovirus, Live, Unknown Completed Univers ity of Oral, Trivalent [facility] Branch Tetanus/Diptheria Unknown Completed Univers ity [facility] Vital Signs Vital Name Observation Time Observation Value Comments Source Heart rate 2023-06-14 20:00:00 63 /min [facility] [place] [facility] Oxygen saturation in 2023-06-14 20:00:00 100 /min University of Arterial blood by [facility] Pulse oximetry Branch Systolic blood 2023-06-14 18:02:00 112 mm[Hg] Univer sity of pressure [facility] Diastolic blood 2023-06-14 18:02:00 58 mm[Hg] Unive rsity of pressure [facility] Body temperature 2023-06-14 18:02:00 36.89 [place] Univ ersity of [facility] [place] [facility] Respiratory rate 2023-06-14 18:02:00 16 /min Univ ersity of [facility] [place] [facility] Body height 2023-06-14 17:49:00 165.1 cm [facility] [place] [facility] Body weight 2023-06-14 17:49:00 93.35 kg [facility] [place] [facility] BMI 2023-06-14 17:49:00 34.25 kg/m2 [facility] [place] [facility] Systolic blood 2023-05-03 22:46:00 117 mm[Hg] Univer sity of pressure [facility] Diastolic blood 2023-05-03 22:46:00 70 mm[Hg] Unive rsity of pressure [facility] Heart rate 2023-05-03 22:46:00 94 /min [facility] [place] [facility] Body temperature 2023-05-03 22:46:00 36.67 Ros[place] Univ ers[facility] of [facility] [place] [facility] Respiratory rate 2023-05-03 22:46:00 18 /min Univ ersity of [facility] [place] [facility] Oxygen saturation in 2023-05-03 22:46:00 99 /min University of Arterial blood by [facility] Pulse oximetry Branch Heart rate 2023-04-18 21:00:00 77 /min [facility] [place] [facility] Oxygen saturation in 2023-04-18 21:00:00 100 /min University of Arterial blood by [facility] Pulse oximetry Branch Systolic blood 2023-04-18 20:00:00 138 mm[Hg] Univer sity of pressure [facility] Diastolic blood 2023-04-18 20:00:00 75 mm[Hg] Unive rsity of pressure [facility] Body temperature 2023-04-18 17:42:00 37.33 Ros[place] Univ ers[facility] of [facility] [place] [facility] Respiratory rate 2023-04-18 17:42:00 16 /min Univ ersity of [facility] [place] [facility] Body height 2023-04-18 17:42:00 165.1 cm [facility] [place] [facility] Body weight 2023-04-18 17:42:00 92.987 kg [facility] [place] [facility] BMI 2023-04-18 17:42:00 34.11 kg/m2 [facility] [place] [facility] Systolic blood 2023-04-02 13:43:00 122 mm[Hg] Univer sity of pressure [facility] [place] [facility] Diastolic blood 2023-04-02 13:43:00 62 mm[Hg] Unive rsity of pressure [facility] [place] [facility] Heart rate 2023-04-02 13:43:00 98 /min [facility] [place] [facility] Body temperature 2023-04-02 13:43:00 36.61 [place] Univ ers[facility] [place] [facility] Respiratory rate 2023-04-02 13:43:00 18 /min Univ ersity of [facility] [place] [facility] Body height 2023-04-02 13:43:00 165.1 cm [facility] [place] [facility] Body weight 2023-04-02 13:43:00 94.575 kg [facility] [place] [facility] BMI 2023-04-02 13:43:00 34.70 kg/m2 [facility] [place] [facility] Systolic blood 2023-03-11 18:08:00 119 mm[Hg] Univer sity of pressure [facility] Diastolic blood 2023-03-11 18:08:00 68 mm[Hg] Unive rsity of pressure [facility] [place] [facility] Heart rate 2023-03-11 18:08:00 87 /min [facility] [place] [facility] Body temperature 2023-03-11 18:08:00 36.78 [place] Univ ers[facility] of [facility] [place] [facility] Respiratory rate 2023-03-11 18:08:00 18 /min Univ ersity of [facility] [place] [facility] Body height 2023-03-11 18:08:00 165.1 cm [facility] [place] [facility] Body weight 2023-03-11 18:08:00 93.044 kg [facility] [place] [facility] BMI 2023-03-11 18:08:00 34.13 kg/m2 [facility] [place] [facility] Systolic blood 2023-02-11 18:05:00 112 mm[Hg] Univer sity of pressure [facility] Diastolic blood 2023-02-11 18:05:00 64 mm[Hg] Unive rsity of pressure [facility] [place] [facility] Heart rate 2023-02-11 18:05:00 73 /min [facility]i ty of [facility] Body temperature 2023-02-11 18:05:00 36.78 Ros[place] Univ ersity of [facility] Branch Respiratory rate 2023-02-11 18:05:00 18 /min Univ ersity of [facility] Branch Body height 2023-02-11 18:05:00 165.1 cm [facility] [place] [facility] Body weight 2023-02-11 18:05:00 88.508 kg [facility] [place] [facility] BMI 2023-02-11 18:05:00 32.47 kg/m2 Universi ty of [facility] Systolic blood 2022-01-17 03:00:00 119 mm[Hg] Univer sity of pressure [facility] Diastolic blood 2022-01-17 03:00:00 62 mm[Hg] Unive rsity of pressure [facility] Heart rate 2022-01-17 03:00:00 68 /min [facility] [place] [facility] Respiratory rate 2022-01-17 03:00:00 16 /min [facility] ersity of [facility] Oxygen saturation in 2022-01-17 03:00:00 100 /min [facility] Arterial blood by [facility] Pulse oximetry [place] Body temperature 2022-01-17 02:03:00 37.[address] of [facility] Body height 2022-01-17 02:03:00 165.1 cm [facility] [place] [facility] Body weight 2022-01-17 02:03:00 90.719 kg [facility] [place] [facility] BMI 2022-01-17 02:03:00 33.28 kg/m2 Universi ty of [facility] Systolic blood 2019-05-27 20:39:00 107 mm[Hg] Univer sity of pressure [facility] Diastolic blood 2019-05-27 20:39:00 63 mm[Hg] Unive rsity of pressure [facility] Heart rate 2019-05-27 20:39:00 77 /min [facility]i ty of [facility] Body temperature 2019-05-27 20:39:00 36.94 [place] [facility] [place] [facility] Respiratory rate 2019-05-27 20:39:00 18 /min Univ ersity of [facility] [place] [facility] Body height 2019-05-27 20:39:00 165.1 cm [facility] Body weight 2019-05-27 20:39:00 98.431 kg [facility] BMI 2019-05-27 20:39:00 36.11 kg/m2 [facility] [place] [facility] Systolic blood 2019-05-27 20:39:00 107 mm[Hg] Univer sity of pressure [facility] Diastolic blood 2019-05-27 20:39:00 63 mm[Hg] Unive rsity of pressure [facility] Heart rate 2019-05-27 20:39:00 77 /min [facility] [place] [facility] Body temperature 2019-05-27 20:39:00 36.94 [place] Univ [facility] [place] [facility] Respiratory rate 2019-05-27 20:39:00 18 /min Univ ersity of [facility] [place] [facility] Body height 2019-05-27 20:39:00 165.1 cm [facility] [place] [facility] Body weight 2019-05-27 20:39:00 98.431 kg [facility] [place] [facility] BMI 2019-05-27 20:39:00 36.11 kg/m2 [facility] [place] [facility] Systolic blood 2019-05-17 21:39:00 114 mm[Hg] Univer sity of [facility] Diastolic blood 2019-05-17 21:39:00 71 mm[Hg] Unive rsity of pressure [facility] Heart rate 2019-05-17 21:39:00 103 /min [facility] [place] [facility] Body temperature 2019-05-17 21:39:00 37.11 Ros[place] Univ [facility] [place] [facility] Respiratory rate 2019-05-17 21:39:00 18 /min Univ ersity of [facility] [place] [facility] Body height 2019-05-17 21:39:00 165.1 cm [facility] [place] [facility] Body weight 2019-05-17 21:39:00 100.154 kg [facility] [place] [facility] BMI 2019-05-17 21:39:00 36.74 kg/m2 [facility] [place] [facility] Systolic blood 2019-05-17 21:39:00 114 mm[Hg] Univer sity of pressure [facility] Diastolic blood 2019-05-17 21:39:00 71 mm[Hg] Unive rsity of pressure [facility] Heart rate 2019-05-17 21:39:00 103 /min Universi ty of [facility] Body temperature 2019-05-17 21:39:00 37.11 Ros[place] Univ [facility] [place] [facility] Respiratory rate 2019-05-17 21:39:00 18 /min Univ ersity of [facility] Body height 2019-05-17 21:39:00 165.1 cm [facility] [place] [facility] Body weight 2019-05-17 21:39:00 100.154 kg [facility] [place] [facility] BMI 2019-05-17 21:39:00 36.74 kg/m2 Universi ty of [facility] Systolic blood 2019-05-04 18:09:00 135 mm[Hg] Univer sity of pressure [facility] Diastolic blood 2019-05-04 18:09:00 68 mm[Hg] Unive rsity of pressure [facility] Heart rate 2019-05-04 18:09:00 96 /min Universi ty of [facility] Body temperature 2019-05-04 18:09:00 36.78 Ros[place] Univ ersity of [facility] Branch Respiratory rate 2019-05-04 18:09:00 22 /min Univ ersity of [facility] Oxygen saturation in 2019-05-04 18:09:00 100 /min [facility] Arterial blood by [facility] Pulse oximetry Branch Systolic blood 2019-04-29 21:00:00 127 mm[Hg] Univer sity of pressure [facility] Diastolic blood 2019-04-29 21:00:00 68 mm[Hg] Unive rsity of pressure [facility] Branch Heart rate 2019-04-29 21:00:00 87 /min Universi ty of [facility] Body temperature 2019-04-29 21:00:00 36.39 [place] Univ ersity of [facility] Respiratory rate 2019-04-29 21:00:00 20 /min Univ ersity of [facility] Body height 2019-04-29 21:00:00 165.1 cm [facility] [place] [facility] Body weight 2019-04-29 21:00:00 98.431 kg Universi ty of [facility] BMI 2019-04-29 21:00:00 36.11 kg/m2 [facility] Procedures Procedure Date / Time Performing Clinician Source Performed US PELVIS > 14 2023-06-14 20:12:[address] [facility] 2023-06-14 18:55:00 Kory Cruz [facility] ADC ONLY - FERN TEST 2023-06-14 18:55:00 Kory Cruz [facility] ASSIGNMENT OF BENEFITS 2023-06-14 17:37:47 Doctor Unassigned, No [facility] CONSENT/REFUSAL FOR 2023-06-14 17:36:34 [facility] SECOND AND THIRD 2023-05-28 21:05:00 Krystal Velasco [facility] TRIMESTER ULTRASOUND [facility] SECOND AND THIRD 2023-05-28 20:25:00 Krystal Velasco [facility] TRIMESTER ULTRASOUND [facility] URINE DRUG (IMMUNOASSAY) 2023-04-18 18:48:00 Rosalie Wilkinson [facility] - COMPREHENSIVE DRUG [facility] SCREEN ADC [facility] OR [facility] ONLY - 2023-04-18 18:48:00 Ashleigh Wilkinson [facility] CONSENT/REFUSAL FOR 2023-04-18 16:42:47 Doctor Unassigned, No [facility] [place] DIAGNOSIS AND [facility] POCT URINALYSIS 2023-04-02 13:44:00 Krystal Velasco [facility] EXTERNAL PROVIDER 2023-03-21 05:01:00 Doctor Unassigned, No [facility] 2023-03-11 18:00:00 Krystal Velasco [facility] AUTHORIZATION FOR 2023-03-11 05:01:00 Doctor Unassigned, No [facility] RE[facility] OF [facility] POCT URINALYSIS W/O 2023-02-11 18:03:00 Krystal Velasco [facility] SPECIFIC GRAVITY [facility] POCT TEST 2023-02-11 18:02:00 Krystal Velasco [facility] REPORT OF 2023-02-11 05:01:00 [facility] 2022-01-17 03:09:00 Yvonne Siddiqi [facility] COMP. METABOLIC PANEL 2022-01-17 03:09:00 Yvonne Siddiqi [facility] ([id number]) [facility] CBC WITH DIFF 2022-01-17 03:09:00 Yvonne Siddiqi [facility] POCT TEST 2022-01-17 02:14:00 Abraham Weiner [facility] URINALYSIS 2022-01-17 02:10:00 [facility] [facility] NOTICE OF PRIVACY 2022-01-17 01:36:28 Doctor Unassigned, No [facility] CONSENT/REFUSAL FOR 2022-01-17 01:36:18 Doctor Unassigned, [facility] TDAP (ADACEL) 2019-05-27 20:41:37 Neena [facility] IMMUNIZATION [facility] US ABDOMEN LIMITED 2019-05-17 22:45:16 Neena [facility] ASSIGNMENT OF BENEFITS 2019-05-17 22:12:10 Doctor Unassigned, No [facility] URINALYSIS 2019-05-04 18:55:00 Kory [facility] ADC CLC OR LCC ONLY - 2019-05-04 18:55:00 Kory Cruz [facility] ADC ONLY - FERN TEST 2019-05-04 18:54:00 Kory Cruz [facility] CONSENT/REFUSAL FOR 2019-05-04 17:47:16 Doctor Unassigned, No [facility] Encounters Start End Encounter Admission Attending Care Care Encounter Source Date/Time Date/Time Type Type Clinicians Facility Department ID 2023-04-18 Outpatient X [facility] DERRICK [id number] Univers 17:24:48 [facility] 2022-08-02 Emergency HFD HFD [id number] SANDOVAL - 05:16:57 [facility] 2021-07-08 Outpatient [facility] [id number] Legacy 14:21:14 [id number] [facility] 2023-08-04 2023-08-04 Outpatient R KORY CRUZ [facility] [id number] Univers 10:00:00 10:00:[address] [facility] 2023-07-27 2023-07-27 Nurse Suyapa Armstrong 1.2.840.114 [id number] Univers 00:00:00 00:00:00 Triage Gi ZACKERY 350.1.13.10 it y of Transplant [facility] 4.2.7.2.686 [place] [id number] [address] 2023-06-21 2023-06-21 Maryjane Velasco [facility] 1.2.840.114 [id number] Univers 00:00:00 00:00:00 Krystal Sears SKEIN BLEACHER 350.1.13.10 i ty of [facility] 4.2.7.2.686 Juan as MATERNAL [id number] Med ical & CHILD [address] [place] [address] 2023-06-14 2023-06-14 Outpatient X ANTHONY KORY [facility] DERRICK [id number] Univers 12:51:00 15:30:00 ity [facility] 2023-06-14 2023-06-14 Emergency [facility] 1.2.840.114 [id number] Univers 12:51:00 15:30:00 [facility] 350.1.13.10 i ty of [place] 4.2.7.2.686 [facility] [phone] [address] 2023-06-14 2023-06-14 Nurse MAY Christianson 1.2.840.114 [id number] Univers 00:00:00 00:00:00 Triage Chessgianni T ZACKERY 350.1.13.10 ity of [facility] 4.2.7.2.686 Juan as [id number] [address] 2023-06-14 2023-06-14 Orders Doctor OLVERA 1.2.840.114 [id number] Univers 00:00:00 00:00:00 Only Unassigned, ZACKERY 350.1.13.10 ity of [place] [facility] 4.2.7.2.686 Juan as [phone] [address] 2023-06-03 2023-06-03 Telephone [facility] 1.2.840.114 [id number] Univers 00:00:00 00:00:00 Stacey Rg [employer] 350.1.13.10 ity of [facility] 42.7.2.686 Juan as MATERNAL [id number] Med ical & CHILD [address] [place] [address] 2023-06-02 2023-06-[address] [facility] [id number] Univers 15:30:00 15:30:[address] [facility] 2023-05-30 2023-05-30 [facility] 1.2.840.114 [id number] Univers 00:00:00 00:00:00 Management Krystal Sears SKEIN BLEACHER 350.1.13.10 ity of [place] [address]..2.686 Juan as MATERNAL [id number] Med ical & CHILD [address] [place] [address] 2023-05-28 2023-05-28 Outpatient P HEBERT [facility] [id number] Univers 14:00:00 15:19:04 ROXY it y of SSHELLEY [facility] 2023-05-28 2023-05-28 [employer] Ultrasound, [facility] 1.2 .840.114 [id number] Univers 14:00:00 15:19:04 Visit Shelley Ocasio [employer] 350.1. 13.10 ity of [place] [address].7.2.686 Juan as MATERNAL [id number] Med ical & CHILD 369 [facility] 2023-05-21 2023-05-21 [facility] 1.2.840.114 [id number] Univers 00:00:00 00:00:00 Krystal Sears S[employer] 350.1.13.10 i ty of [facility] 4.2.7.2.686 Juan as MATERNAL [id number] Med ical & CHILD 107 [facility] 2023-05-21 2023-05-21 Telephone Rod [facility] 1.2.840.114 [id number] Univers 00:00:00 00:00:00 Krystal Sears S[employer]ACHER 350.1.13.10 i ty [facility] 4.2.7.2.686 Juan as MATERNAL [id number] [facility] [address] [place] [address] 2023-05-20 2023-05-20 Outpatient R POLO, [facility] [id number] Univers 15:30:00 15:30:00 STACEY ity o f [facility] 2023-05-16 2023-05-16 [facility] [id number] Univers 09:45:00 09:45:00 [facility]23-05-03 2023-05-03 Outpatient X WASHBURN-LADI ASHLEIGH [facility] O BY [id number] Univers 17:42:00 18:57:00 WASHBURN-BLEDSOE, ASHLEIGH [facility] 2023-05-03 2023-05-03 Emergency Washburn-Veronika [facility] 1.2.840.114 [id number] Univers 17:42:00 18:57:00 s, Ashleigh TOSHIA 350.1.13.10 ity [facility] 4.2.7.2.686 [facility] [id number] [address] 2023-04-30 2023-04-30 [facility] [id number] Univers 10:45:00 10:45:00 KRYSTAL ity [facility] 2023-04-18 2023-04-18 Outpatient X AWSHBURN-BLEDSOE, ASHLEIGH [facility] O BY [id number] Univers 12:18:00 16:05:00 WASHBURN-BLEDSOE, [facility]IGH [facility] 2023-04-18 2023-04-18 Emergency Washburn-Veronika [facility] 1.2.840.114 [id number] Univers 12:18:00 16:05:00 s, Ashleigh TOSHIA 350.1.13.10 ity [facility] 4.2.7.2.686 [facility] s [place] [id number] [address] 2023-04-17 2023-04-17 Telephone [facility] 1.2.840.114 [id number] Univers 00:00:00 00:00:00 Krystal A S[employer]LEACHER 350.1.13.10 i ty of [facility] 4.2.7.2.686 Juan as MATERNAL [id number] [facility] ical & CHILD [address] [place] [address] 2023-04-17 2023-04-17 Patient [facility] 1.2.840.114 [id number] Univers 00:00:00 00:00:00 Secure Msg Krystal A [employer] 350.1.13.10 ity of [facility] 4.2.7.2.686 Juan as MATERNAL [id number] [address] 2023-04-08 2023-04-08 [facility] [id number] Univers 12:45:00 12:45:00 KRYSTAL ity [facility] 2023-04-07 2023-04-07 Case [facility] 1.2.840.114 [id number] Univers 00:00:00 00:00:00 Management Krystal A SKEIN BLEACHER 350.1.13.10 ity of [facility] 4.2.7.2.686 Juan as MATERNAL [id number] [facility] & [address] 2023-04-03 2023-04-03 [facility] [id number] Univers 10:30:00 10:30:00 KRYSTAL ity [facility] 2023-04-03 2023-04-03 Refill [facility] 1.2.840.114 [id number] Univers 00:00:00 00:00:00 Krystal A SKE[employer] BLEACHER 350.1.13.10 i ty of [facility] 4.2.7.2.686 Juan as MATERNAL [id number] [facility] & CHILD [address] [place] [address] 2023-04-02 2023-04-02 [facility] [id number] Univers 08:45:00 09:15:[address] [facility] 2023-04-02 2023-04-02 Routine [facility] 1.2.840.114 [id number] Univers 08:45:00 09:15:48 Krystal A SKEIN BLEACHER 350.1.13.10 ity of Visit [facility] 4.2.7.2.686 Juan as MATERNAL [id number] [facility] [address] [place] [address] 2023-03-21 2023-03-21 Case [facility] 1.2.840.114 [id number] Univers 00:00:00 00:00:00 Management Krystal A SKEIN BLEACHER 350.1.13.10 ity of [facility] 4.2.7.2.686 Juan as MATERNAL [id number] [facility] & CHILD [address] [place] [address] 2023-03-21 2023-03-21 Orders Doctor MAY 1.2.840.114 [id number] Univers 00:00:00 00:00:00 Only Unassigned, ZACKERY 350.1.13.10 ity of [place] [facility] 4.2.7.2.686 Juan as [phone] [address] 2023-03-19 2023-03-19 Telephone [facility] 1.2.840.114 [id number] Univers 00:00:00 00:00:00 Krystal A SKEIN BLEACHER 350.1.13.10 i ty of [facility] 4.2.7.2.686 Juan as MATERNAL [id number] [facility] & CHILD [address] [place] [address] 2023-03-11 2023-03-11 [facility] [id number] Univers 12:45:00 13:26:33 KRYSTAL ity [facility] 2023-03-11 2023-03-11 Routine [facility] 1.2.840.114 [id number] Univers 12:45:00 13:26:33 Krystal A SKEIN BLEACHER 350.1.13.10 ity of Visit [facility] 4.2.7.2.686 Juan as MATERNAL [id number] [facility] [address] [place] [address] 2023-03-11 2023-03-11 Orders Doctor MAY 1.2.840.114 [id number] Univers 00:00:00 00:00:00 Only Unassigned, ZACKERY 350.1.13.10 ity of [place] [facility] 4.2.7.2.686 Juan as [id number] [address] 2023-02-18 2023-02-18 Telephone [facility] 1.2.840.114 [id number] Univers 00:00:00 00:00:00 Krystal A SKEIN BLEACHER 350.1.13.10 i ty of [facility] 4.2.7.2.686 Juan as MATERNAL [id number] Med ical & CHILD [address] [place] [address] 2023-02-14 2023-02-14 Case [facility] 1.2.840.114 [id number] Univers 00:00:00 00:00:00 Management Krystal A SKEIN BLEACHER 350.1.13.10 ity of [facility] 4.2.7.2.686 Juan as MATERNAL [id number] Med ical & CHILD [address] [place] [address] 2023-02-14 2023-02-14 Telephone [facility] 1.2.840.114 1 [id number] Univers 00:00:00 00:00:00 Krystal A SKEIN BLEACHER 350.1.13.10 i ty of [facility] 4.2.7.2.686 Juan as MATERNAL [id number] [facility] & CHILD [address] [place] [address] 2023-02-11 2023-02-11 Initial [facility] 1.2.840.114 [id number] Univers 13:00:00 14:23:32 Krystal A SKEIN BLEACHER 350.1.13.10 ity of Visit [facility] 4.2.7.2.686 Juan as MATERNAL [id number] [facility] & CHILD [address] [place] [address] 2023-02-11 2023-02-11 Outpatient R ROD [facility] [id number] Univers 12:30:00 13:21:27 KRYSTAL ity [facility] 2023-02-11 2023-02-11 Orders Doctor OLVERA 1.2.840.114 [id number] Univers 00:00:00 00:00:00 Only Unassigned, ZACKERY 350.1.13.10 ity of [place] [facility] 4.2.7.2.686 Juan as [id number] [facility] [address] 2023-02-10 2023-02-10 Outpatient R AKINSIPE, [facility] [id number] Univers 08:30:00 08:30:00 STACEY ity o f [facility] 2022-08-02 2022-08-02 Emergency E DENG[facility] [facility] 04:26:00 11:34:00 2022-01-16 2022-01-17 Emergency X [facility] ERT [id number] Univers 21:05:00 00:11:[address] [facility] 2022-01-16 2022-01-17 Emergency [facility] 1.2.923.479 [id number] Univers 21:05:00 00:11:00 Yvonne OPPE 350.1.13.10 i ty of [place] [facility] 4.2.7.2.[place] [id number] [facility] [address] [place] 2021-07-25 2021-07-25 Patient Doctor MAY 1.2.840.114 [id number] Univers 00:00:00 00:00:00 Secure Msg Unassigned, ZACKERY 350.1.13.10 ity of [place] [facility] 4.2.7.2.686 Juan as [id number] [facility] [address] 2021-04-19 2021-04-19 Outpatient R AKINSIPE, [facility] [id number] Univers 13:15:00 13:15:00 STACEY it[address]if o f [facility] 2021-02-06 2021-02-06 Case Summer Belhcer 1.2.840.114 [id number] Univers 00:00:00 00:00:00 Management Jennifer Harrell 350.1.13.10 ity of [place] 4.2.7.2.[place] [id number] [place] 968556 [place] 2021-02-06 2021-02-06 Case Summer Belcher 1.2.840.114 [id number] 00:00:00 00:00:00 Management Jennifer Alfordy 350.1.13.10 [place] 4.2.7.2.686 [id number] 086 2020-12-12 2020-12-12 Patient [facility] 1.2.840.114 [id number] Univers 00:00:00 00:00:00 Outreach Broderick PRIMARY 350.1.13.10 i ty of [place] [facility] 4.2.7.2.686 [place] [id number] [address] 2020-12-12 2020-12-12 Patient [facility] 1.2.840.114 [id number] 00:00:00 00:00:00 Outreach Broderick PRIMARY 350.1.13.10 [place] CARE 4.2.7.2.686 PAVILLION [id number] 388 2020-02-28 2020-02-28 [facility] [id number] Univers 15:00:00 15:00:00 [facility] 2019-12-18 2019-12-18 Outpatient [facility] [id number] Univers 17:30:00 17:30:00 RKISSY [facility] 2019-11-18 2019-11-18 Outpatient [facility] [id number] Univers 14:30:00 14:30:00 [facility] 2019-05-27 2019-05-27 Routine [facility] 1.2.903.177 [id number] Univers 14:41:30 15:54:53 Itzel Pope 350.1.13.10 ity of Visit [place].2.[place] [phone] [facility] 134 [facility] 2019-05-27 2019-05-27 Routine [facility] 1.2.620.053 [id number] 14:41:30 15:54:53 Itzel Pope 350.1.13.10 Visit [place] 4.2.7.2.686 Professio [id number] [address] 2019-05-17 2019-05-17 Hospital [facility] 1.2.840.114 [id number] Univers 17:15:00 23:59:00 Encounter Itzel Pope 350.1.13.10 ity of [place] 4[place]2.7.2.686 [place] [id number] [facility] [address] [place] 2019-05-17 2019-05-17 [employer] 1, Adc Lab [facility] 1.2.840.114 [id number] Univers 17:21:30 17:36:30 Visit Kory Cruz Pedro Pope 350.1.13.10 ity of [place] 4.2.7.2.686 [facility] [id number] [facility] 353 [place] 2019-05-17 2019-05-17 Office [facility] 1.2.733.462 [id number] 15:55:01 16:56:25 Visit Itzel Pope 350.1.13.10 [place] 4.2.7.2.686 Professio [id number] [address] 2019-05-17 2019-05-17 Office [facility] 1.2.699.433 [id number] Univers 15:55:01 16:56:25 Visit Itzel Pope 350.1.13.10 i ty of [place] 4[place]2.7.2.[place] [id number] [address] 2019-05-17 2019-05-17 Orders Doctor MAY 1.2.840.114 [id number] Univers 00:00:00 00:00:00 Only Unassigned, ZACKERY 350.1.13.10 ity of [place] [facility] 4.2.7.2.686 Juan as [id number] [facility] [address] 2019-05-05 2019-05-05 [facility] 1.2.840.114 [id number] Univers 00:00:00 00:00:00 Itzel Pope 350.1.13.10 i ty of [place] 4[place]2.7.2.686 [place] [phone] [address] 2019-05-04 2019-05-04 [employer] 1, Adc Lab [place] 1.2.840.114 [id number] Univers 15:07:01 15:22:01 Visit Kory Cruz 350.1.13.10 ity of [place] 4.2.7.2.686 [place] [id number] [facility] [address] 2019-05-04 2019-05-04 Hospital Kory Cruz [facility] 1.2.840.114 [id number] Univers 12:48:00 14:57:00 Encounter Pedro Pope 350.1.13.10 ity of [place] 4.2.7.2.686 [place] [id number] [facility] [address] 2019-05-04 2019-05-04 Telephone Neena [facility] 1.2.840.114 [id number] Univers 00:00:00 00:00:00 Itzel [place] 350.1.13.10 i ty of [place] 4.2.7.2.686 [place] [phone] Mi dical nal 134 [facility] 2019-05-04 2019-05-04 Orders Doctor MAY 1.2.840.114 [id number] Univers 00:00:00 00:00:00 Only Unassigned, ZACKERY 350.1.13.10 ity of [place] [facility] 4.2.7.2.686 Juan as [id number] [facility] [address] 2019-04-30 2019-04-30 Case Neena [facility] 1.2.006.383 [id number] Univers 00:00:00 00:00:00 Management [facility] 350.1.13.10 ity of Surgical 4.2.7.2.686 Juan as Specialti [id number] Mi dical es [address] [facility] 2019-04-29 2019-04-29 Routine Kory Cruz [facility] 1.2.058.894 [id number] Univers 15:40:17 16:18:51 Pedor Pope 350.1.13.10 ity of Visit [place] 4.2.7.2.[place] [phone] Mi dical nal 134 [facility] Results Test Description Test Time Test Comments [...] POCT U APPEAR (test code = 3267) [facility] URINALYSIS W SPECIFIC [id number] 18:00:00 Test Item Value Reference Range Interpretation [...] POCT U APPEAR (test code = 3267) [facility] URINALYSIS W/O SPECIFIC [id number] 18:03:00 Test Item Value Reference Range Interpretation [...] = 3257) Trace Negative - Negative [facility] [id number] 18:02:00 Test Item Value Reference Range Interpretation Comments POCT PREG (test code = 1605) Positive On board controls acceptable with C Yes Line (test code = 3574) POCT PREG LOT # (test code = 3575) POCT PREG TEST DATE (test code = 3576) [facility]. METABOLIC PANEL ([id number])2022-01-17 03:31:19 Test Item Value Reference Range Interpretation Comments NA (test code = 139 mmol/L 135-145 7477837494) K (test code = 4.2 mmol/L 3.5-5.0 7427175787) CL (test code = 105 mmol/L 98-108 5127763363) CO2 TOTAL (test code = 23 mmol/L 23-31 3682960728) AGAP (test code = 2-16 7703842480) BUN (test code = 9 mg/dL 7-23 1817777504) GLUCOSE (test code = 94 mg/dL 70-110 5315289561) CREATININE (test code = 0.61 mg/dL 0.50-1.04 0106155507) TOTAL BILI (test code = 0.9 mg/dL 0.1-1.8 1229497121) CALCIUM (test code = 9.4 mg/dL 8.6-10.6 4855561165) T PROTEIN (test code = 8.3 g/dL 6.3-8.2 H 2039600623) ALBUMIN (test code = 4.7 g/dL 3.5-5.0 9185113892) ALK PHOS (test code = 87 U/L 34-122 7362206942) ALTv (test code = 11 U/L 5-35 1742-6) AST(SGOT) (test code = 19 U/L 13-40 2639696483) eGFR (test code = mL/min/1.73m2 4214954681) TIERRA (test code = TIERRA) Association of [...] tests). Lab Interpretation Abnormal (test code = 01817-6) [facility]2022-04-28 03:31:19 Test Item Value Reference Range Interpretation Comments LIPASE (test code = 6970843754) 68 U/L 0-220 Lab Interpretation (test code = Normal 15157-1) [facility] WITH [id number] 03:28:58 Test Item Value Reference Range Interpretation Comments WBC (test code = See_Comment [Automated 2140-2) message] The sy stem which generated this result transmitted reference range : 4.30 - 11.10 10*3/?L. The reference range was not used to interpret this result as normal/abnormal . RBC (test code = See_Comment [Automated 249-8) message] The sy stem which generated this [...] RDW-SD (test code = 43.8 fL 39.0-49.9 01600-4) RDW-CV (test code = 15.2 % 12.0-15.5 788-0) PLT (test code = See_Comment [Automated 777-3) message] The sy stem which generated this result transmitted reference range : 166 - 358 10*3/ ?L. The reference r suzi was not used to interpret this result as normal/abnormal . MPV (test code = 11.3 fL 9.5-12.9 22535-7) NRBC/100 WBC (test See_Comment [Automat ed code = 2126418363) message] The system which generated this result transmitted reference range : 0.0 - 10.0 /100 WBCs. The refer ence range was not u sed to interpret th is result as normal/abnormal . NRBC x10^3 (test code <0.01 See_Comment [Auto mated = 4512758398) message] The s ystem which generated this result transmitted reference range : 10*3/?L. The reference range was not used to interpret this result as normal/abnormal . GRAN MAT (NEUT) % 71.7 % (test code = 770-8) IMM GRAN % (test code 0.20 % = 4996606002) LYMPH % (test code = 22.5 % 736-9) MONO % (test code = 4.2 % 5905-5) EOS % (test code = 0.8 % 713-8) BASO % (test code = 0.6 % 706-2) GRAN MAT x10^3(ANC) 6.26 10*3/uL 1.88-7.09 (test code = 1078541959) IMM GRAN x10^3 (test <0.03 0.00-0.06 code = 3182339117) LYMPH x10^3 (test code 1.96 10*3/uL 1.32-3.29 = 731-0) MONO x10^3 (test code 0.37 10*3/uL 0.33-0.92 = 742-7) EOS x10^3 (test code = 0.07 10*3/uL 0.03-0.39 711-2) BASO x10^3 (test code 0.05 10*3/uL 0.01-0.07 = 704-7) Lab Interpretation Abnormal (test code = 86372-0) [facility] [id number] 02:14:00 Test Item Value Reference Range Interpretation Comments POCT PREG (test code = 1605) negative On board controls acceptable with present C Line (test code = 3574) POCT PREG LOT # (test code = 3575) [id number] POCT PREG TEST DATE (test 06/21/2023 code = 3576) Lab Interpretation (test code = Normal 44535-6) [facility]US ABDOMEN [id number] 23:14:22 Cholelithiasis with no evidence of acute [...] this study and agree with theabove report.[facility]2019-08-13 19:31:00 Test Item Value Reference Range Interpretation Comments APPEARANCE (test code Slightly Cloudy Clear A = 8774814449) COLOR (test code = Yellow Yellow 4804182332) PH (test code = 4.8-8.0 3725864925) SP GRAVITY (test code <=1.005 1.003-1.030 = 1607025441) GLU U QUAL (test code Negative Negative = 2183534574) BLOOD (test code = Negative Negative 0360854355) KETONES (test code = Negative Negative 0732683898) PROTEIN (test code = Negative Negative 2887-8) UROBILIN (test code = 0.2 mg/dL See_Comment [Auto mated 9945313315) message] The system which generated this result transmit refugio reference range : 0-1.0 mg/dL. Th e reference range was not used to interpret this result as normal/abnormal . BILIRUBIN (test code Negative Negative = 7053793693) NITRITE (test code = Negative Negative 7455937164) [place] SUMMER (test code Large Negative A = 5768040269) RBC/HPF (test code = See_Comment [Autom ated 1704109777) message] The system which generated this result transmit refugio reference range : 0 - 3 HPF. The reference range was not used to interpret this result as normal/abnormal . WBC/HPF (test code = See_Comment H [Autom ated [id number]) message] The system which generated this result transmit refugio reference range : 0 - 5 HPF. The reference range was not used to interpret this result as normal/abnormal . BACTERIA (test code = Moderate Negative A [id number]) SQ EPITH (test code = HPF [id number]) Lab Interpretation Abnormal (test code = 88381-7) [facility] ONLY - WET [id number] 19:28:00 Test Item Value Reference Range Interpretation Comments Wet Prep (test code No Trichomonas vaginalis = [id number]) present [facility] ONLY - FERN [id number] 19:24:00 Test Item Value Reference Range Interpretation Comments Fern Test (test code = [id number]) Negative [facility]"
[2023-07-27] MEDS ORDERED: NA CHLORIDE 0.9% 1,000 ML ONE (07:35)
[2023-07-27] MEDS ORDERED: ONDANSETRON 4 MG/2 ML VIAL ONE (07:35)
[2023-07-27 07:51] LABS: Specific Gravity 1.015 (1.005-1.030); Urine Bacteria <20 /HPF (<20); Urine Bilirubin NEGATIVE (Negative); Urine Blood Negative (Negative); Urine Clarity Extremely Turbid (Clear); Urine Color Light-Yellow (Yellow); Urine Glucose NEGATIVE (Negative); Urine Mucus Slight /HPF (None Seen); Urine Protein TRACE (Negative); Urine RBC <5 /HPF (None Seen); Urine Urobilinogen Normal (Normal); Urine pH 7.5 (5.0-7.0)
[2023-07-27 07:53] LABS: Absolute Lymphocytes (CBC) 1.4 K/uL (0.7-4.9); Hematocrit 28.2 % (36.0-45.0); Lymphocytes % 19.9 % (15.3-44.8); MCV 73.1 fL (80-100); MPV 7.6 fL (7.6-11.3); Platelets 218 thou/uL (152-406); RBC Red Blood Cell Count 3.86 M/uL (3.86-4.86)
[2023-07-27 08:03] LABS: Albumin 2.5 g/dL (3.4-5.0); Bilirubin Total 0.6 mg/dL (0.2-1.0); Potassium 3.8 mEq/L (3.5-5.1); Protein, Total 6.5 g/dL (6.4-8.2)
[2023-07-27 08:05] LABS: SARS-CoV-2 Antigen Rapid Res Negative (Negative)
--- NOTE | 2023-07-27 10:08 | ER ---
Nurse's Notes [facility] Name: Arina Valdes Age: 22 yrs Sex: Female : 2000 Arrival Date: 07/27/2023 Time: 06:58 Bed 16 Private MD: Diagnosis: Nausea with vomiting, unspecified;Diarrhea, unspecified;Dehydration Presentation: 07/27 07:42 Chief complaint: Patient states: nausea and vomiting x2 days, back pain and diarrhea x5 kc6 days. denies contractions or vaginal bleeding. Coronavirus screen: At this time, the client does not indicate any symptoms associated with coronavirus-19. Ebola Screen: No symptoms or risks identified at this time. Initial Sepsis Screen: Does the patient meet any 2 criteria? No. Patient's initial sepsis screen is negative. Does the patient have a suspected source of infection? No. Patient's initial sepsis screen is negative. Risk Assessment: Do you want to hurt yourself or someone else? Patient reports no desire to harm self or others. Onset of symptoms was July 27, 2023. 07:42 Method Of Arrival: Ambulatory 6 07:42 Acuity: PEYTON 3 kc6 Triage Assessment: 07:43 General: Appears in no apparent distress. comfortable, Behavior is calm, cooperative, kc6 appropriate for age. Pain: Complains of pain in back Pain does not radiate. Pain currently is 7 out of 10 on a pain scale. EENT: No signs and/or symptoms were reported regarding the EENT system. Neuro: Level of Consciousness is awake, alert, obeys commands, Oriented to person, place, time, situation, Appropriate for age. Cardiovascular: Capillary refill < 3 seconds. Respiratory: Airway is patent Trachea midline Respiratory effort is even, unlabored, Respiratory pattern is regular, symmetrical. GI: Abdomen is round non-distended, Bowel sounds present X 4 quads. Abd is soft and non tender X 4 quads. Reports diarrhea, nausea, vomiting. : Urine is clear, cloudy, Denies burning with urination, vaginal bleeding. Derm: No signs and/or symptoms reported regarding the dermatologic system. Skin is intact, is healthy with good turgor, Skin is pink, warm \T\ dry. Musculoskeletal: No signs and/or symptoms reported regarding the musculoskeletal system. Circulation, motion, and sensation intact. Capillary refill < 3 seconds, Range of motion: intact in all extremities. 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 - Social history:: Smoking status: Reported history of juuling and/or vaping. - Family history:: not pertinent. - Hospitalizations: : No recent hospitalization is reported. Screenin:46 [facility] ED Fall Risk Assessment (Adult) History of falling in the last 3 months, kc6 including since admission No falls in past 3 months (0 pts) Confusion or Disorientation No (0 pts) Intoxicated or Sedated No (0 pts) Impaired Gait No (0 pts) Mobility Assist Device Used No (0 pt) Altered Elimination No (0 pt) Score/Fall Risk Level 0 - 2 = Low Risk. Abuse screen: Denies threats or abuse. Denies injuries from another. Nutritional screening: No deficits noted. Tuberculosis screening: No symptoms or risk factors identified. Assessment: 07:45 Reassessment: please see triage assessment. kc6 08:30 Reassessment: Patient appears in no apparent distress at this time. No changes from 6 previously documented assessment. Patient and/or family updated on plan of care and expected duration. Pain level reassessed. Patient is alert, oriented x 3, equal unlabored respirations, skin warm/dry/pink. attempted to contact US in regards to orders. no answer at this time. 09:35 Reassessment: Patient appears in no apparent distress at this time. No changes from 6 previously documented assessment. Patient and/or family updated on plan of care and expected duration. Pain level reassessed. Patient is alert, oriented x 3, equal unlabored respirations, skin warm/dry/pink. 10:00 Reassessment: Dr. Sierra at bedside with patient performing ultrasound. kc6 Vital Signs: 07:42 BP 111 / 59; Pulse 72; Resp 18 S; Pulse Ox 100% on R/A; Weight 92.99 kg (R); Height 5 kc6 ft. 5 in. (R); Pain 7/10; 08:30 BP 106 / 68; Pulse 80; Resp 17 S; Pulse Ox 98% on R/A; kc6 09:35 BP 106 / 65; Pulse 70; Resp 18 S; Pulse Ox 98% on R/A; kc6 10:01 BP 112 / 70; Pulse 75; Resp 16 S; Pulse Ox 97% on R/A; kc6 07:42 Body Mass Index 34.11 (92.99 kg, 165.1 cm) kc6 07:42 Pain Scale: Adult kc6 ED Course: 07:02 Patient arrived in ED. jj6 07:04 Pancho Sierra MD is Attending Physician. rn 07:20 Ann-Marie Amaya RN is Primary Nurse. kc6 07:43 Triage completed. kc6 07:43 Arm band placed on. kc6 07:45 Inserted saline lock: 20 gauge in left antecubital area, using aseptic technique. Blood kc6 collected. Patient maintains SpO2 saturation greater than 95% on room air. 07:46 Patient has correct armband on for positive identification. Placed in gown. Bed in low kc6 position. Call light in reach. Side rails up X 1. Client placed on continuous cardiac and pulse oximetry monitoring. NIBP monitoring applied. 10:18 No provider procedures requiring assistance completed. IV discontinued, intact, kc6 bleeding controlled, No redness/swelling at site. Pressure dressing applied. Administered Medications: 07:46 Drug: NS 0.9% IV 1000 ml IV at 1 bolus Per protocol; 1000 mL bolus Route: IV; Rate: 1 kc6 bolus; Site: left antecubital; 09:07 Follow up: Response: No adverse reaction; IV Status: Completed infusion; IV Intake: kc6 1000ml 07:46 Drug: Ondansetron IVP 4 mg IVP once; over 2 minutes Route: IVP; Site: left antecubital; kc6 08:25 Follow up: Response: No adverse reaction; Nausea is decreased; Vomiting decreased kc6 Medication: 10:18 VIS not applicable for this client. kc6 Intake: 09:07 IV: 1000ml; Total: 1000ml. kc6 Outcome: 10:08 Discharge ordered by . rn 10:18 Discharged to home ambulatory, kc6 10:18 Condition: good 10:18 Discharge instructions given to patient, Instructed on discharge instructions, follow up and referral plans. Demonstrated understanding of instructions, follow-up care, 10:18 Patient left the ED. kc6 Signatures: Pancho Sierra MD MD rn Jeffries, Jennifer jj6 Campbell, Kaitlyn, RN RN [email or web address]
--- NOTE | 2023-07-27 10:08 | EDPHYS ---
Physician Documentation [facility] Name: Arina Valdes Age: 22 yrs Sex: Female : 2000 Arrival Date: 07/27/2023 Time: 06:58 Bed 16 Private MD: ED Physician Pancho Sierra HPI: 07/27 07:47 This 22 yrs old Female presents to ER via Ambulatory with complaints of rn Nausea/Vomiting/Diarrhea, Abdominal Pain, Low Back Pain. 07:47 The patient presents to the emergency department with nausea, vomiting, diarrhea, rn abdominal pain. 07:47 Onset: The symptoms/episode began/occurred 4 day(s) ago. Possible causes: unknown. The rn symptoms are aggravated by nothing. The symptoms are alleviated by nothing. Associated signs and symptoms: Pertinent positives: abdominal pain, diarrhea, nausea, vomiting, Pertinent negatives: fever, GI bleeding. Severity of symptoms: At their worst the symptoms were moderate in the emergency department the symptoms are unchanged. The patient has not experienced similar symptoms in the past. Patient reports about 30 weeks , now on day 5 of nausea/vomiting/diarrhea. No blood in stool. No fever. Reports abdominal cramping, states specifically that does not feel like contractions. No leakage of fluid. No vaginal bleeding. Called her OB doctor and was told to come to the nearest ER.. 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 - Social history:: Smoking status: Reported history of juuling and/or vaping. - Family history:: not pertinent. - Hospitalizations: : No recent hospitalization is reported. ROS: 07:47 Constitutional: Negative for fever, chills, and weight loss, Cardiovascular: Negative rn for chest pain, palpitations, and edema, Respiratory: Negative for shortness of breath, cough, wheezing, and pleuritic chest pain, Abdomen/GI: Positive for abdominal cramping/vomiting/diarrhea Back: Negative for injury and pain, : Negative for injury, bleeding, discharge, and swelling, MS/Extremity: Negative for injury and deformity, Skin: Negative for injury, rash, and discoloration, Neuro: Negative for headache, weakness, numbness, tingling, and seizure, Exam: 07:47 Constitutional: This is a well developed, well nourished patient who is awake, alert, rn and in no acute distress. Ambulatory to room without difficulty or distress Head/Face: Normocephalic, atraumatic. ENT: Dry mucous membranes Cardiovascular: Regular rate and rhythm. No pulse deficits. Respiratory: No increased work of breathing, no retractions or nasal flaring. Abdomen/GI: Soft, no focal tenderness. No rebound. Gravid uterus. Skin: Warm, dry MS/ Extremity: Pulses equal, no cyanosis. Neuro: Awake and alert, GCS 15 Vital Signs: 07:42 BP 111 / 59; Pulse 72; Resp 18 S; Pulse Ox 100% on R/A; Weight 92.99 kg (R); Height 5 kc6 ft. 5 in. (R); Pain 7/10; 08:30 BP 106 / 68; Pulse 80; Resp 17 S; Pulse Ox 98% on R/A; kc6 09:35 BP 106 / 65; Pulse 70; Resp 18 S; Pulse Ox 98% on R/A; kc6 10:01 BP 112 / 70; Pulse 75; Resp 16 S; Pulse Ox 97% on R/A; kc6 07:42 Body Mass Index 34.11 (92.99 kg, 165.1 cm) kc6 07:42 Pain Scale: Adult kc6 Procedures: 10:06 Ultrasound: Type: performed by the emergency department physician, OB ultrasound rn performed by me, good movement, heart rate 169, good amount of fluid. Showed all images to mother. MDM: 07:05 Patient medically screened. rn 09:55 ED course: Patient feels much better with improved movement. rn 10:06 Differential diagnosis: Nonspecific abd pain, viral gastroenteritis, gastroenteritis. rn Data reviewed: vital signs, nurses notes, lab test result(s), and as a result, I will discharge patient. Counseling: I had a detailed discussion with the patient and/or guardian regarding the historical points, exam findings, and any diagnostic results supporting the discharge/admit diagnosis, lab results, radiology results, the need for outpatient follow up, to return to the emergency department if symptoms worsen or persist or if there are any questions or concerns that arise at home. Response to treatment: the patient's symptoms have markedly improved after treatment, and as a result, I will discharge patient. ED course: ammonia refrigeration technician never arrived after 3 hours of waiting, I did the ultrasound myself which shows normal heart rate and movement. All images show to mother and she is happy. Increased movement with IV fluids. Normal white blood cell count. No more vomiting. Will DC home with OB follow-up and return precautions.. 07/27 07:16 Order name: CBC with Diff; Complete Time: 08:05 rn 07/27 07:16 Order name: CMP; Complete Time: 08:05 rn 07/27 07:16 Order name: Urinalysis w/ reflexes; Complete Time: 08:05 rn 07/27 07:16 Order name: Flu; Complete Time: 08:05 rn 07/27 07:16 Order name: SARS RAPID; Complete Time: 08:05 rn 07/27 07:16 Order name: IV Saline Lock; Complete Time: 07:46 rn 07/27 07:16 Order name: Labs collected and sent; Complete Time: 07:46 rn Administered Medications: 07:46 Drug: NS 0.9% IV 1000 ml IV at 1 bolus Per protocol; 1000 mL bolus Route: IV; Rate: 1 kc6 bolus; Site: left antecubital; 09:07 Follow up: Response: No adverse reaction; IV Status: Completed infusion; IV Intake: kc6 1000ml 07:46 Drug: Ondansetron IVP 4 mg IVP once; over 2 minutes Route: IVP; Site: left antecubital; kc6 08:25 Follow up: Response: No adverse reaction; Nausea is decreased; Vomiting decreased kc6 Disposition Summary: 07/27/23 10:08 Discharge Ordered Notes: Location: Home rn Problem: new rn Symptoms: have improved rn Condition: Stable rn Diagnosis - Nausea with vomiting, unspecified rn - Diarrhea, unspecified rn - Dehydration rn Followup: rn - With: Private Physician - When: As needed - Reason: Recheck today's complaints, Re-evaluation by your physician Discharge Instructions: - Discharge Summary Sheet rn - Dehydration, Adult rn - Nausea and Vomiting, Adult rn Forms: - Medication Reconciliation Form rn - Thank You Letter rn - Antibiotic international representative - Prescription Opioid Use rn - Patient Portal Instructions rn - Leadership Thank You Letter rn Signatures: Dispatcher [employer] Pancho Dial MD MD rn Campbell, Kaitlyn, RN RN kc6
[2023-07-27 10:43] VITALS: BP 112/70; O2SAT 97
== END 2023-07-27 10:18 | disposition home or self-care (01) ==
LOC: ER 06:58
DX: O99.283 Endocrine, nutritional and metabolic diseases complicating pregnancy, third trimester (principal); E86.0 Dehydration; O21.9 Vomiting of pregnancy, unspecified; Z3A.30 30 weeks gestation of pregnancy; Z11.52 Encounter for screening for COVID-19
CPT/HCPCS: 96361; 85025; 81001; 36415; 80053; 87804 ×2; 96374; 99285; 87811; J2405; J7030

== ENCOUNTER → 2023-09-18 | Emergency (ER) | payer OTHER ==
[~2023-09-18] MED LIST: NA CHLORIDE 0.9% 0 ML ONE
--- OUTSIDE RECORDS SUMMARY | 2023-09-18 23:12 | XMS REPORT | Continuity of Care Document ---
Author Name Unknown Address [address] [facility] [address] [place] [address] [facility] Address [address] [facility] [address] [place] [address] Care Team Providers Care [employer] Press Offbearer Name Role Phone LEEROY DENG Attending Clinician Unavailable Jennifer Belcher LMSW Attending Clinician Unava ilBroderick Ballesteros DO Attending Clinician [phone] Itzel Mar PA-C Attending Clinician [phone] Payers Payer Name Policy Type Policy Number Effective Date Expirati on Date Source Encounters Start Date/Time End Date/Time Encounter Type Admission Type Attending Clinicians Care Facility Care Department Encounter ID Source 2021-07-08 14:21:14 Outpatient [facility] [id number] [facility] 2022-08-02 04:26:00 2022-08-02 11:34:00 Emergency LEEROY GALLO [facility] [id number] [facility] 2021-02-06 00:00:00 2021-02-06 00:00:00 Case Management [facility] [id number] 2020-12-12 00:00:00 2020-12-12 00:00:00 Patient Outreach Broderick Melton [facility] [place] [id number] 2019-05-27 14:41:30 2019-05-27 15:54:53 Routine Visit Itzel Mar [facility] [id number] 2019-05-17 15:55:01 2019-05-17 16:56:25 Office Visit Itzel Mar [facility] [id number]
--- NOTE | 2023-09-18 23:59 | ER ---
Nurse's Notes [facility] Name: Arina Valdes Age: 22 yrs Sex: Female : 2000 Arrival Date: 09/18/2023 Time: 23:08 Bed 4 Private MD: Diagnosis: 37 weeks gestation of -decreased movement;Hypokalemia;Abuse of other non-psychoactive substances-marajuana Presentation: 09/18 23:11 Chief complaint: EMS states: 38 weeks , can't feel baby move, spotting, lost tm6 mucus plug. Coronavirus screen: Client denies travel out of the [place] in the last 14 days. Ebola Screen: Patient negative for fever greater than or equal to 101.5 degrees Fahrenheit, and additional compatible Ebola Virus Disease symptoms Patient denies exposure to infectious person. Patient denies travel to an Ebola-affected area in the 21 days before illness onset. No symptoms or risks identified at this time. Initial Sepsis Screen: Does the patient meet any 2 criteria? No. Patient's initial sepsis screen is negative. Does the patient have a suspected source of infection? No. Patient's initial sepsis screen is negative. Risk Assessment: Do you want to hurt yourself or someone else? Patient reports no desire to harm self or others. Onset of symptoms was September 18, 2023. 23:11 Method Of Arrival: EMS: [facility] tm6 23:11 Acuity: PEYTON 3 tm6 Triage Assessment: 23:13 General: Appears in no apparent distress. Behavior is calm, cooperative. Pain: tm6 Complains of pain in pelvis Pain does not radiate. Quality of pain is described as "like contraction pain". EENT: No signs and/or symptoms were reported regarding the EENT system. Neuro: Level of Consciousness is awake, alert, obeys commands, Oriented to person, place, time, situation. Cardiovascular: Capillary refill < 3 seconds Patient's skin is warm and dry. Respiratory: Airway is patent Respiratory effort is even, unlabored, Respiratory pattern is regular, symmetrical. GI: Abdomen is round. : No signs and/or symptoms were reported regarding the genitourinary system. : No signs and/or symptoms were reported regarding the genitourinary system. Derm: No signs and/or symptoms reported regarding the dermatologic system. Musculoskeletal: No signs and/or symptoms reported regarding the musculoskeletal system. 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 - Social history:: Smoking status: Reported history of juuling and/or vaping. - Family history:: not pertinent. Screenin:16 [facility] ED Fall Risk Assessment (Adult) History of falling in the last 3 months, tm6 including since admission No falls in past 3 months (0 pts). Abuse screen: Denies threats or abuse. Denies injuries from another. Nutritional screening: No deficits noted. Tuberculosis screening: No symptoms or risk factors identified. Assessment: 23:16 Obstetrical Assessment: General assessment: awake and alert, skin warm and dry, tm6 respirations even and unlabored. Reassessment: see triage assessment. 23:43 Reassessment: Pt states she is going to leave AMA after getting an ultrasound. Pt had vc1 me remove IV and refused IV fluids. Asked patient why she wanted to leave and she stated she wants to go to [facility] because they have a better NICU. Asked patient if she would like us to transfer her to [place] instead of [place] and pt stated no my will drive me. 23:45 General: Smells of marijuana. vc1 09/19 00:55 Reassessment: patient left AMA and did not sign AMA form. tm6 Vital Signs: 09/18 23:11 BP 112 / 68; Pulse 85; Pulse Ox 100% on R/A; Pain 0/10; tm6 23:11 Pain Scale: Adult tm6 ED Course: 23:10 Patient arrived in ED. vidya 23:11 Remigio Warner MD is Attending Physician. vidya 23:13 Triage completed. tm6 23:16 Arm band placed on right wrist. tm6 23:16 Patient has correct armband on for positive identification. Bed in low position. Call tm6 light in reach. Side rails up X 1. Provided Education on: plan of care. Client placed on continuous cardiac and pulse oximetry monitoring. NIBP monitoring applied. Door closed. Noise minimized. Warm blanket given. 09/19 00:02 US OB Limited In Process Unspecified. EDMS 00:55 No provider procedures requiring assistance completed. Patient did not have IV access tm6 during this emergency room visit. 01:00 Called [facility] transfer center to cancel transfer due to Patient leaving AMA. vk Administered Medications: 09/18 23:47 Not Given (Patient Refused): ns 0.9% 1000 ml IV at 1 bolus Per protocol; 1000 mL bolus vc1 Medication: 09/19 00:56 VIS not applicable for this client. tm6 Outcome: 09/18 23:59 ER care complete, transfer ordered by MD. dasilva 09/19 00:56 AMA Left before signing form, tm6 Condition: unchanged Discharge instructions given to no DC instructions, patient left AMA 00:57 Patient left the ED. tm6 Signatures: Dispatcher [employer] Remigio Hernadez MD MD cha Calcote, Vanessa RN RN vc1 Flora Jiang RN RN tm6 Mary Young
--- NOTE | 2023-09-18 23:59 | EDPHYS ---
Physician Documentation [facility] Name: Arina Valdes Age: 22 yrs Sex: Female : 2000 Arrival Date: 09/18/2023 Time: 23:08 Bed 4 Private MD: ED Physician Remigio Warner HPI: 09/18 23:42 This 22 yrs old Female presents to ER via EMS with complaints of ctx, no vidya movements. 23:42 The patient presents with abdominal pain in the upper abdomen, in the lower abdomen, vidya abdominal distention in the upper abdomen, in the lower abdomen. Onset: The symptoms/episode began/occurred today. The patient presents to the emergency department with no movement, last felt the baby move approximately 2 hour(s) ago. The estimated gestational age is 38 weeks. course: care: none, Leakage of Fluid: none appreciated. Previous pregnancies: in previous pregnancies patient has had vaginal delivery. ENGRAVER SIGNATURE: 23:13 5, Full Term 1, unknown tm6 23:42 5, Full Term 1, Premature 0, 3, Living 1, unknown vidya Historical: - Allergies: 23:13 No Known Allergies; tm6 - PMHx: 23:13 depressive disorder; pre eclampsia; UTI; tm6 - Immunization history:: Adult Immunizations up to date. - Social history:: Smoking status: Reported history of juuling and/or vaping. - Family history:: not pertinent. ROS: 23:42 Constitutional: Negative for fever, chills, and weight loss, Eyes: Negative for injury, vidya pain, redness, and discharge, ENT: Negative for injury, pain, and discharge, Neck: Negative for injury, pain, and swelling, Cardiovascular: Negative for chest pain, palpitations, and edema, Respiratory: Negative for shortness of breath, cough, wheezing, and pleuritic chest pain, Back: Negative for injury and pain, : Negative for injury, bleeding, discharge, and swelling, MS/Extremity: Negative for injury and deformity, Skin: Negative for injury, rash, and discoloration, Neuro: Negative for headache, weakness, numbness, tingling, and seizure, Psych: Negative for depression, anxiety, suicide ideation, homicidal ideation, and hallucinations, Allergy/Immunology: Negative for hives, rash, and allergies, Endocrine: Negative for neck swelling, polydipsia, polyuria, polyphagia, and marked weight changes, Hematologic/Lymphatic: Negative for swollen nodes, abnormal bleeding, and unusual bruising, 23:42 Abdomen/GI: Positive for abdominal distension, Exam: 23:42 Constitutional: This is a well developed, well nourished patient who is awake, alert, vidya and in no acute distress. Head/Face: Normocephalic, atraumatic. Eyes: Pupils equal round and reactive to light, extra-ocular motions intact. Lids and lashes normal. Conjunctiva and sclera are non-icteric and not injected. Cornea within normal limits. Periorbital areas with no swelling, redness, or edema. ENT: Nares patent. No nasal discharge, no septal abnormalities noted. Tympanic membranes are normal and external auditory canals are clear. Oropharynx with no redness, swelling, or masses, exudates, or evidence of obstruction, uvula midline. Mucous membranes moist. Neck: Trachea midline, no thyromegaly or masses palpated, and no cervical lymphadenopathy. Supple, full range of motion without nuchal rigidity, or vertebral point tenderness. No Meningismus. Chest/axilla: Normal chest wall appearance and motion. Nontender with no deformity. No lesions are appreciated. Cardiovascular: Regular rate and rhythm with a normal S1 and S2. No gallops, murmurs, or rubs. Normal PMI, no JVD. No pulse deficits. Respiratory: Lungs have equal breath sounds bilaterally, clear to auscultation and percussion. No rales, rhonchi or wheezes noted. No increased work of breathing, no retractions or nasal flaring. Back: No spinal tenderness. No costovertebral tenderness. Full range of motion. Female : Normal external genitalia. MS/ Extremity: Pulses equal, no cyanosis. Neurovascular intact. Full, normal range of motion. Neuro: Awake and alert, GCS 15, oriented to person, place, time, and situation. Cranial nerves II-XII grossly intact. Motor strength 5/5 in all extremities. Sensory grossly intact. Cerebellar exam normal. Normal gait. Psych: Awake, alert, with orientation to person, place and time. Behavior, mood, and affect are within normal limits. 23:42 Abdomen/GI: Inspection: gravid appearance, is noted, Bowel sounds: active, all quadrants, Palpation: soft, in all quadrants, Liver: no appreciated palpable abnormalities, Hernia: not appreciated, Vital Signs: 23:11 BP 112 / 68; Pulse 85; Pulse Ox 100% on R/A; Pain 0/10; tm6 23:11 Pain Scale: Adult tm6 MDM: 23:10 Patient medically screened. vidya 23:11 Patient medically screened. vidya 23:52 Differential diagnosis: Greenlee patel, delivery of , Pyelonephritis, urinary vidya tract infection. Data reviewed: vital signs, nurses notes, lab test result(s), radiologic studies, ultrasound. Consideration of Admission/Observation Escalation of care including admission/observation considered. I considered the following discharge prescriptions or medication management in the emergency department Medications were administered in the Emergency Department. See MAR. Independent interpretation of the following test(s) in the Emergency Department Radiology Department Ultrasound: My interpretation is see report. Test considered but Not performed: EKG: no ekg. Historians other than the Patient: EMS: ems well informed. Care significantly affected by the following chronic conditions: preeclampsia, uti, depression. Counseling: I had a detailed discussion with the patient and/or guardian regarding the historical points, exam findings, and any diagnostic results supporting the discharge/admit diagnosis, lab results, radiology results, the need to transfer to another facility, for higher level of care, [facility] does not immediately have the required specialist. 09/18 23:12 Order name: Abo/rh Typing [facility] 09/18 23:12 Order name: Basic Metabolic Panel; Complete Time: 00:49 [facility] 09/18 23:12 Order name: CBC with Diff [facility] 09/18 23:12 Order name: Test, Urine; Complete Time: 00:49 [facility] 09/18 23:12 Order name: Urinalysis w/ reflexes; Complete Time: 00:49 [facility] 09/18 23:41 Order name: UDS; Complete Time: 00:49 [facility] 09/19 00:34 Order name: CBC Smear Scan [facility]VT 09/18 23:12 Order name: US OB Limited [facility] 09/18 23:12 Order name: Labs collected and sent; Complete Time: 23:48 [facility] 09/18 23:12 Order name: NPO; Complete Time: 23:48 [facility] Administered Medications: 23:47 Not Given (Patient Refused): ns 0.9% 1000 ml IV at 1 bolus Per protocol; 1000 mL bolus vc1 Disposition Summary: 09/18/23 23:59 Transfer Ordered Notes: Transfer Location: [facility] vidya Reason: Higher level of care vidya Condition: Stable vidya Problem: new vidya Symptoms: have improved vidya Accepting Physician: to 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 vidya vc1 09/19 00:50 09/18 23[facility] [facility], cha 09/19 00:57 00:[address] [facility], dr ginger dasilva 6
[2023-09-19 00:24] LABS: Specific Gravity 1.006 (1.005-1.030)
[2023-09-19 00:25] LABS: Specific Gravity 1.006 (1.005-1.030); Urine Bacteria <20 /HPF (<20); Urine Bilirubin NEGATIVE (Negative); Urine Blood Negative (Negative); Urine Clarity Turbid (Clear); Urine Color Light-Yellow (Yellow); Urine Glucose NEGATIVE (Negative); Urine Protein NEGATIVE (Negative); Urine RBC None Seen /HPF (None Seen); Urine Urobilinogen Normal (Normal); Urine pH 6.5 (5.0-7.0)
[2023-09-19 00:31] LABS: Hematocrit 30.3 % (36.0-45.0); Lymphocytes % 21.6 % (15.3-44.8); MCV 68.3 fL (80-100); MPV 7.9 fL (7.6-11.3); Platelets 258 thou/uL (152-406); RBC Red Blood Cell Count 4.43 M/uL (3.86-4.86)
[2023-09-19 00:32] LABS: Barbiturates NEGATIVE (NEGATIVE); Benzodiazepines POSITIVE (NEGATIVE); Cocaine NEGATIVE (NEGATIVE); METHAMPHETAM NEGATIVE (NEGATIVE); Methadone NEGATIVE (NEGATIVE); Opiates NEGATIVE (NEGATIVE); Phencyclidine NEGATIVE (NEGATIVE); THC Cannibis POSITIVE (NEGATIVE)
[2023-09-19 00:41] LABS: Potassium 3.2 mEq/L (3.5-5.1)
[2023-09-19 01:50] LABS: Platelet Estimate ADEQ; White Blood Cell Scan OK (OK)
[2023-09-19 01:51] LABS: Anisocytosis 2+; Blood Morphology Comment NOTED (NOT SEEN)
[2023-09-19 07:10] VITALS: BP 112/68; O2SAT 100
--- NOTE | 2023-09-19 20:52 | RAD REPORT ---
EXAM DESCRIPTION: US , Limited CLINICAL HISTORY: ABD PAIN TECHNIQUE: Real-time limited ultrasound of the maternal uterus with image documentation. COMPARISON: No relevant prior studies available. FINDINGS: Fetus: Single intrauterine gestation. Gestational age: Estimated gestational age is 37 weeks 0 days. STEVE: Estimated date of delivery is 10/09/2023. FL: 7.27 cm, 37 weeks 2 days. Position: Cephalic presentation. Heart rate: cardiac activity measures 133 BPM. Placenta: The placenta is posterior in location. No previa. IMPRESSION: 1. Single live intrauterine gestation. No focal complication. 2. Estimated gestational age by ultrasound is 37 weeks 0 days. 3. Estimated due date by ultrasound is 10/09/2023. Electronically signed by: Jaqueline Jaramillo MD 09/19/2023 12:54 AM CRYSTAL CALIBRATOR Due to temporary technical issues with the PACS/Fluency reporting system, reports are being signed by the in house radiologists without review as a courtesy to insure prompt reporting. The interpreting radiologist is fully responsible for the content of the report.
== END ==
LOC: ER 23:08
DX: O99.323 Drug use complicating pregnancy, third trimester (principal); F12.90 Cannabis use, unspecified, uncomplicated; O99.283 Endocrine, nutritional and metabolic diseases complicating pregnancy, third trimester; E87.6 Hypokalemia; Z3A.37 37 weeks gestation of pregnancy
CPT/HCPCS: 36415; 76815; 80048; 81001; 85025; 86900; 86901; 99283; J7030

== ENCOUNTER → 2023-12-06 | Emergency (ER) | payer OTHER ==
[~2023-12-06] MED LIST changes: +AMOX/K CLAV 875 MG TAB ONE; +HYDROCODONE/APAP 7.5/325 MG TAB ONE; -NA CHLORIDE 0.9% 0 ML ONE
--- OUTSIDE RECORDS SUMMARY | 2023-12-06 15:12 | XMS REPORT | Continuity of Care Document ---
Author Name Unknown Address [address] [facility] [address] [place] [address] [facility] thconnect Address [address] [facility] [address] [place] [address] Care Team Providers Care Inspector [employer] Name Role Phone Kory Cruz MD Primary Care Physician [phone] Kory Cruz MD Attending Clinician [phone] KORY CRUZ Attending Clinician Unavailable Doctor Unassigned, Aquilla Attending Clinician U anna Angel MD, Xenia Mac Attending Clinician + Agnes Pedraza MD Attending Clinician [phone] ARIELA WILKINSON Attending Clinician ARIELA Dunn Attending Clinician Jose Antonio candelario 2, [facility] Attending Clinician Unavailable MARY AVINA Attending Clinician Unavailable Fabrice KENNEDY, Mary Masters Attending Clinician [phone] ELOY CHAVEZ Attending Clinician Unavaila Nacho Dior DO Attending Clinician [phone] Sheldon KENNEDY, Kristal Phelps Attending Clinician + Scott KENNEDY, Eloy Ramires Attending Clinician [phone], [facility] Room Attending Clinician Unavailcatherine Melton MD, Sunita Segura Attending Clinician + [phone] Nurse, [facility] Attending Clinician Amanda Krystal Morel CNM Attending Clinician [phone] Sammy RN, Heidi Stinson Attending Clinician Unavaila kam [facility] + HUY MENDOZA Attending Clinician Unavail able SHELLEY OCASIO Attending Clinician Unav ailbarb Ultrasound, [facility] Attending Clinician Unavaila Shelley Ortiz MD Attending Clinician + KRYSTAL LOW Attending Clinician UnavailLEEROY Carter Attending Clinician Unavailable YVONNE SIDDIQI Attending Clinician Unavailable Yvonne Rodriguez Attending Clinician + [phone] [facility] Attending Clinician Unava ilBroderick Ballesteros DO Attending Clinician [phone] JOSY CHAUDHARY Attending Clinician Unavailable KRISSY GREEN Attending Clinician Unavailable Josy Chaudhary PA-C Attending Clinician [phone], [facility] Attending Clinician Unavailable ARIELA WILKINSON Admitting Clinician UnaKORY Osei Admitting Clinician Unavailable Kory Cruz MD Admitting Clinician [phone] MARY AVINA Admitting Clinician Unavailable Mary Avina MD Admitting Clinician [phone] ELOY CHAVEZ Admitting Clinician UnavailEloy Lewis MD Admitting Clinician [phone] Payers Payer Name Policy Type Policy Number Effective Date Expirati on Date Source [facility] KRYSTIN [id number] 2023 00:00:00 MEDICAID PENDING PENDING 2023 00:00:00 2023 00:00:00 [place] [id number] 2023 00:00:00 2023 00:00:00 [facility] KIRAN MCCLELLAND [id number] 2018 00:00:00 Problems Condition Name Condition Details Condition Category Status Onset Date Resolution Date Last Treatment Date Treating Clinician Comments Source Normal labor Normal labor Disease Active 09-25 00:00: 00 [facility] Liveborn infant, of [place] , born in hospital by vaginal delivery Liveborn infant, of [place] , born in hospital by vaginal delivery Disease Active 09-25 00:00: 00 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 37 weeks gestation of 37 weeks gestation of Disease Active 2022-09 00:00: 00 [facility] Drug use complicati ng in third trimester Drug use complicati ng in third trimester Disease Active 2022-09 00:00: 00 [facility] 38 weeks gestation of 38 weeks gestation of Disease Active 2022-09 00:00: 00 [facility] Fall (on) (from) unspecifie d stairs and steps, sequela Fall (on) (from) unspecifie d stairs and steps, sequela Disease Active 2022-09 00:00: 00 [facility] Injury Injury Disease Active 2022-09 00:00: 00 [facility] Fall Fall Disease Active 2022-09 00:00: 00 [facility] High-risk in third trimester High-risk in third trimester Disease Active 2022-09 00:00: 00 [facility] Limited care in third trimester Limited care in third trimester Disease Active 2022-09 00:00: 00 [facility] Cramping affecting , antepartum Cramping affecting , antepartum Disease Active 2022-09 00:00: 00 [facility] 30 weeks gestation of 30 weeks gestation of Disease Active 2022-09 00:00: 00 [facility] 31 weeks gestation of 31 weeks gestation of Disease Active 2022-09 00:00: 00 [facility] uterine contractio ns, antepartum , third trimester uterine contractio ns, antepartum , third trimester Disease Active 2022-09 00:00: 00 [facility] 33 weeks gestation of 33 weeks gestation of Disease Active 2022-09 00:00: 00 [facility] Trichomona l vaginitis during Trichomona l vaginitis during Disease Active 02-14 00:00: 00 [facility] Maternal varicella, non-immune Maternal varicella, non-immune Disease Active 02-12 00:00: 00 [facility] Obesity affecting Obesity affecting Disease Active 02-11 00:00: 00 [facility] Nausea and vomiting during Nausea and vomiting during Disease Active 02-11 00:00: 00 [facility] History of heart murmur in childhood History of heart murmur in childhood Disease Active 02-11 00:00: 00 Overview: Formattin g of this note might be different from the original. Age 12EKG NSR with sinus arrhythmi a. Normal EKG compared to 7. [facility] Family history of autism Family history of autism Disease Active 02-11 00:00: 00 Overview: Formattin g of this note might be different from the original. Patient sister and daughter [facility] Nexplanon insertion Nexplanon insertion Disease Active 2018-09 00:00: 00 [facility] Nexplanon in place Nexplanon in place Disease Active 2018-09 00:00: 00 [facility] Encounter for female control Encounter for female control Disease Active 2018-0916 00:00: 00 [facility] Anemia, antepartum , third trimester Anemia, antepartum , third trimester Disease Active 2018-09 1-12 00:00: 00 [facility] Obesity (BMI 30-39.9) Obesity (BMI 30-39.9) Disease Active 01-04 00:00: 00 [facility] History of depression History of depression Disease Active 01-04 00:00: 00 [facility] History of anxiety and depression History of anxiety and depression Disease Active 01-04 00:00: 00 [facility] Anxiety during Anxiety during Disease Active 01-04 00:00: 00 [facility] Allergies, Adverse Reactions, Alerts Allergy Name Allergy Type Status Severity Reaction(s) Onset Date Inactive Date Treating Clinician Comments Source NO KNOWN ALLERGIE S Drug Class Active [facility] Social History Social Habit Start Date Stop Date Quantity Comments Source ASSERTION 2023-01-10 00:00:[facility] History of tobacco use Passive smoker [facility] Alcohol intake 2023-10-10 00:00:00 2023-10-10 00:00:00 Current non-drinker of alcohol (finding) [facility] Tobacco Comment 2023-02-11 00:00:00 2023-02-11 00:00:00 elena smokes outside [facility] Tobacco use and exposure 2023-02-11 00:00:00 2023-02-11 00:00:00 Smokeless tobacco non-user [facility] History of Social function 2023-02-11 00:00:00 2023-02-11 00:00:00 [facility] Exposure to SARS-CoV-2 (event) 2022-01-06 00:00:00 2022-01-16 20:33:00 Unable to assess [facility] Sex Assigned At 2000 00:00:00 2000 00:00:00 [facility] Smoking Status Start Date Stop Date Source Never smoked tobacco [facility] Medications Ordered Medication Name Filled Medication Name Start Date Stop Date Current Medication? Ordering Clinician Indication Dosage Frequency Signature (SIG) Comments Components Source SERTraline (ZOLOFT) 50 mg tablet 10-17 00:00: 00 Yes [id number] 50mg Take 1 tablet by mouth in the morning. [facility] SERTraline (ZOLOFT) 50 mg tablet 10-17 00:00: 00 Yes [id number] 50mg Take 1 tablet by mouth in the morning. [facility] SERTraline (ZOLOFT) 50 mg tablet 10-17 00:00: 00 Yes [id number] 50mg Take 1 tablet by mouth in the morning. [facility] SERTraline (ZOLOFT) 50 mg tablet 10-17 00:00: 00 Yes [id number] 50mg Take 1 tablet by mouth in the morning. [facility] busPIRone 10 mg tablet 10-10 00:00: 00 Yes [id number] 10mg Take 1 tablet by mouth in the morning and 1 tablet in the evening. [facility] busPIRone 10 mg tablet 10-10 00:00: 00 Yes [id number] 10mg Take 1 tablet by mouth in the morning and 1 tablet in the evening. [facility] busPIRone 10 mg tablet 10-10 00:00: 00 Yes [id number] 10mg Take 1 tablet by mouth in the morning and 1 tablet in the evening. [facility] busPIRone 10 mg tablet 10-10 00:00: 00 Yes [id number] 10mg Take 1 tablet by mouth in the morning and 1 tablet in the evening. [facility] SERTraline (ZOLOFT) 25 mg tablet 10-10 00:00: 00 10-18 05:59 :00 Yes [id number] 25mg Take 1 tablet by mouth in the morning for [address] [facility] vitamin w/FA tablet 09-26 00:00: 00 Yes [id number] 1{tbl} Take 1 tablet by mouth in the morning. [facility] docusate 100 mg capsule 2023-0 09-26 00:00: 00 Yes [id number] 200mg Take 2 capsules by mouth once daily as needed for Constipati on. [facility] ferrous sulfate 325 mg (65 mg iron) tablet 09-26 00:00: 00 Yes [id number] 325mg Take 1 tablet by mouth in the morning and 1 tablet in the evening. [facility] ibuprofen 600 mg tablet 09-26 00:00: 00 Yes [id number] 600mg Take 1 tablet by mouth every 6 (six) hours as needed (Pain). Take with food or milk. [facility] vitamin w/FA tablet 09-26 00:00: 00 Yes [id number] 1{tbl} Take 1 tablet by mouth in the morning. [facility] docusate 100 mg capsule 09-26 00:00: 00 Yes [id number] 200mg Take 2 capsules by mouth once daily as needed for Constipati on. [facility] ferrous sulfate 325 mg (65 mg iron) tablet 09-26 00:00: 00 Yes [id number] 325mg Take 1 tablet by mouth in the morning and 1 tablet in the evening. [facility] ibuprofen 600 mg tablet 09-26 00:00: 00 Yes [id number] 600mg Take 1 tablet by mouth every 6 (six) hours as needed (Pain). Take with food or milk. [facility] vitamin w/FA tablet 09-26 00:00: 00 Yes [id number] 1{tbl} Take 1 tablet by mouth in the morning. [facility] docusate 100 mg capsule 0 09-26 00:00: 00 Yes [id number] 200mg Take 2 capsules by mouth once daily as needed for Constipati on. [facility] ferrous sulfate 325 mg (65 mg iron) tablet 0 09-26 00:00: 00 Yes [id number] 325mg Take 1 tablet by mouth in the morning and 1 tablet in the evening. [facility] ibuprofen 600 mg tablet 09-26 00:00: 00 Yes [id number] 600mg Take 1 tablet by mouth every 6 (six) hours as needed (Pain). Take with food or milk. [facility] vitamin w/FA tablet 09-26 00:00: 00 Yes [id number] 1{tbl} Take 1 tablet by mouth in the morning. [facility] docusate 100 mg capsule 2023-0 09-26 00:00: 00 Yes [id number] 200mg Take 2 capsules by mouth once daily as needed for Constipati on. [facility] ferrous sulfate 325 mg (65 mg iron) tablet 09-26 00:00: 00 Yes [id number] 325mg Take 1 tablet by mouth in the morning and 1 tablet in the evening. [facility] ibuprofen 600 mg tablet 09-26 00:00: 00 Yes [id number] 600mg Take 1 tablet by mouth every 6 (six) hours as needed (Pain). Take with food or milk. [facility] vitamin w/FA tablet 09-26 00:00: 00 Yes [id number] 1{tbl} Take 1 tablet by mouth in the morning. [facility] docusate 100 mg capsule 09-26 00:00: 00 Yes [id number] 200mg Take 2 capsules by mouth once daily as needed for Constipati on. [facility] ferrous sulfate 325 mg (65 mg iron) tablet 09-26 00:00: 00 Yes [id number] 325mg Take 1 tablet by mouth in the morning and 1 tablet in the evening. [facility] ibuprofen 600 mg tablet 2023-0 09-26 00:00: 00 Yes [id number] 600mg Take 1 tablet by mouth every 6 (six) hours as needed (Pain). Take with food or milk. [facility] vitamin w/FA tablet 2023-0 09-26 00:00: 00 Yes [id number] 1{tbl} Take 1 tablet by mouth in the morning. [facility] docusate 100 mg capsule 09-26 00:00: 00 Yes [id number] 200mg Take 2 capsules by mouth once daily as needed for Constipati on. [facility] ferrous sulfate 325 mg (65 mg iron) tablet 09-26 00:00: 00 Yes [id number] 325mg Take 1 tablet by mouth in the morning and 1 tablet in the evening. [facility] ibuprofen 600 mg tablet 09-26 00:00: 00 Yes [id number] 600mg Take 1 tablet by mouth every 6 (six) hours as needed (Pain). Take with food or milk. [facility] vitamin w/FA tablet 09-26 00:00: 00 Yes [id number] 1{tbl} Take 1 tablet by mouth in the morning. [facility] docusate 100 mg capsule 09-26 00:00: 00 Yes [id number] 200mg Take 2 capsules by mouth once daily as needed for Constipati on. [facility] ferrous sulfate 325 mg (65 mg iron) tablet 09-26 00:00: 00 Yes [id number] 325mg Take 1 tablet by mouth in the morning and 1 tablet in the evening. [facility] ibuprofen 600 mg tablet 09-26 00:00: 00 Yes [id number] 600mg Take 1 tablet by mouth every 6 (six) hours as needed (Pain). Take with food or milk. [facility] vitamin w/FA tablet 09-26 00:00: 00 Yes [id number] 1{tbl} Take 1 tablet by mouth in the morning. [facility] docusate 100 mg capsule 09-26 00:00: 00 Yes [id number] 200mg Take 2 capsules by mouth once daily as needed for Constipati on. [facility] ferrous sulfate 325 mg (65 mg iron) tablet 09-26 00:00: 00 Yes [id number] 325mg Take 1 tablet by mouth in the morning and 1 tablet in the evening. [facility] ibuprofen 600 mg tablet 09-26 00:00: 00 Yes [id number] 600mg Take 1 tablet by mouth every 6 (six) hours as needed (Pain). Take with food or milk. [facility] witch Gilbert (TUCKS) 50 % topical pad 09-25 16:22: 14 Yes Topical, Q4HPRN, Starting on Fri09/25/23 at 1022, Until Discontinu ed, Routine, rectal/hem orrhoidal [facility] rho(D) immune globulin (RHOGAM) syringe 300 mcg 09-25 16:18: 36 Yes 300ug 300 mcg, Intramuscu lar, ONCE, For 1 dose, Conditiona l, Routine [facility] HYDROcodone -acetaminop hen (NORCO 5) 5-325 mg tablet 1 tablet 09-25 16:18: 06 Yes 1{tbl} 1 tablet, Oral, Q6HPRN, Starting on Fri09/25/23 at 1018, Until Discontinu ed, Routine, Pain (scale 7-10) [facility] ibuprofen (IBU) tablet 600 mg 09-25 16:18: 06 Yes 600mg 600 mg, Oral, Q6HPRN, Starting on Fri09/25/23 at 1018, Until Discontinu ed, Routine, Pain (scale 4-6) [facility] acetaminoph en (TYLENOL) tablet 650 mg 09-25 16:18: 06 Yes 650mg 650 mg, Oral, Q6HPRN, Starting on Airam 09/25/23 at 1018, Until Discontinu ed, Routine, Pain (scale 1-3) [facility] diphenhydrA MINE (BENADRYL) tablet 25 mg 09-25 16:18: 06 Yes 25mg 25 mg, Oral, Q6HPRN, Starting on Fri09/25/23 at 1018, Until Discontinu ed, Routine, Sleep, Itching [facility] ondansetron (ZOFRAN (PF)) injection 4 mg 09-25 16:18: 06 Yes 4mg 4 mg, Slow IV Push, Q8HPRN, Starting on Fri09/25/23 at 1018, Until Discontinu ed, Routine, Nausea and Vomiting (N/V) [facility] simethicone (GAS RELIEF (SIMETHICON E)) chewable tablet 160 mg 09-25 16:18: 06 Yes 160mg 160 mg, Oral, PC+HSPRN, Starting on Airam 09/25/23 at 1018, Until Discontinu ed, Routine, Gas [facility] docusate (COLACE) capsule 200 mg 09-25 16:18: 06 Yes 200mg 200 mg, Oral, QDAILYPRN, Starting on Airam 09/25/23 at 1018, Until Discontinu ed, Routine, Constipati on [facility] magnesium hydroxide (MILK OF MAGNESIA) 400 mg/5 mL suspension 30 mL 09-25 16:18: 06 Yes 30mL 30 mL, Oral, QDAILYPRN, Starting on Airam 09/25/23 at 1018, Until Discontinu ed, Routine, Constipati on [facility] benzocaine- menthol (DERMOPLAST ) 20-0.5 % topical spray 09-25 16:18: 06 Yes Topical, PRN, Starting on Airam 09/25/23 at 1018, Until Discontinu ed, Routine, Perineum discomfort [facility] SERTraline (ZOLOFT) tablet 100 mg 09-25 15:00: 00 Yes 100mg 100 mg, Oral, DAILY, First dose on Airam 09/25/23 at 0900, Until Discontinu ed, Routine [facility] fentaNYL-ro pivacaine 2 mcg/mL-0.1 % (PF) in NS 200 mL epidural infusion RTU 09-25 09:30: 00 09-25 14:54 :08 No Epidural, ONCE INTRA PROCEDURE, Starting on Airam 09/25/23 at 0330, Until Airam 09/25/23 at 0854, Routine, Intra-op [facility] lidocaine-e pinephrine (XYLOCAINE W/EPINEPHRI NE) 1.5 %-1:200,000 injection 09-25 09:30: 00 09-25 14:54 :08 No Intraderma l, ONCE INTRA PROCEDURE, Starting on Airam 09/25/23 at 0330, Until Airam 09/25/23 at 0854, Routine, Intra-op [facility] FENTanyl PF (SUBLIMAZE (PF)) injection 100 mcg 09-25 07:40: 08 09-25 16:22 :14 No 100ug 100 mcg, Slow IV Push, Q1HPRN, Starting on Airam 09/25/23 at 0140, Until Airam 09/25/23 at 1022, Routine, contractio n pain without an epidural and SVE < 8 cm and Cat I strip [facility] ondansetron (ZOFRAN (PF)) injection 4 mg 09-25 07:40: 00 09-25 16:22 :14 No 4mg 4 mg, Slow IV Push, Q8HPRN, Nausea and Vomiting (N/V), Starting on Airam 09/25/23 at 0140
Do ses of ondansetro n 16 mg and above need to be administer ed via IV piggyback. For Dose >=24mg ECG monitoring is advisable.
[facility] oxytocin (PITOCIN) 30 units in NS 500 mL IV infusion 09-25 07:38: 50 09-25 16:21 :41 No 2mU/min at 2-40 mL/hr, IV Infusion, TITRATE, Starting on Airam 09/25/23 at 0138, Until Airam 09/25/23 at 1021, ABHAY [facility] oxytocin (PITOCIN) 30 units in NS 500 mL IV infusion 09-25 07:36: 45 09-25 13:45 :00 No 600mL/h 600 mL/hr, IV Infusion, PRN, PPH, Starting on Airam 09/25/23 at 0136, For 1 dose
As instructed by physician at bedside.<b r> [facility] lactated ringers IV infusion 500 mL 09-25 07:36: 45 09-25 16:21 :41 No 500mL at 999 mL/hr, 500 mL, IV Infusion, PRN - SEE INSTRUCTIO NS, Starting on Airam 09/25/23 at 0136, Until Airam 09/25/23 at 1021, Routine [facility] D5W-LR IV infusion 1,000 mL 09-25 07:36: 45 09-25 16:21 :40 No 1000mL at 1-125 mL/hr, IV Infusion, TITRATE, Starting on Airam 09/25/23 at 0136, Until Airam 09/25/23 at 1021, Routine [facility] famotidine 20 mg tablet 2022-09 00:00: 00 Yes [id number] 20mg Take 1 tablet by mouth in the morning and 1 tablet in the evening. [facility] famotidine 20 mg tablet 2022-09 00:00: 00 Yes [id number] 20mg Take 1 tablet by mouth in the morning and 1 tablet in the evening. [facility] famotidine 20 mg tablet 2022-09 00:00: 00 Yes [id number] 20mg Take 1 tablet by mouth in the morning and 1 tablet in the evening. [facility] famotidine 20 mg tablet 2022-09 00:00: 00 09-26 00:00 :00 No [id number] 20mg Take 1 tablet by mouth in the morning and 1 tablet in the evening. [facility] lactated ringers IV infusion 1,000 mL 2022-09 09:30: 00 Yes 1000mL at 125 mL/hr, 1,000 mL, IV Infusion, CONTINUOUS , Starting on Fri09/16/23 at 0330, Until Discontinu ed, Routine [facility] acetaminoph en (TYLENOL) tablet 650 mg 2022-09 09:17: 17 Yes 650mg 650 mg, Oral, Q6HPRN, Starting on Fri09/16/23 at 0317, Until Discontinu ed, Routine, Pain (scale 1-3) [facility] SERTraline 100 mg tablet 2022-09 00:00: 00 Yes [id number] 109 100mg Take 1 tablet by mouth in the morning. [facility] SERTraline 100 mg tablet 2022-09 00:00: 00 Yes [id number] 109 100mg Take 1 tablet by mouth in the morning. [facility] SERTraline 100 mg tablet 2022-09 00:00: 00 Yes [id number] 109 100mg Take 1 tablet by mouth in the morning. [facility] SERTraline 100 mg tablet 2022-09 00:00: 00 Yes [id number] 109 100mg Take 1 tablet by mouth in the morning. [facility] SERTraline 100 mg tablet 2022-09 00:00: 00 Yes [id number] 109 100mg Take 1 tablet by mouth in the morning. [facility] SERTraline 100 mg tablet 2022-09 00:00: 00 09-26 00:00 :00 No [id number] 109 100mg Take 1 tablet by mouth in the morning. [facility] proMETHazin e (PHENERGAN) tablet 25 mg 2022-09 14:29: 24 Yes 25mg 25 mg, Oral, Q6HPRN, Starting on Fri08/22/23 at 0829, Until Discontinu ed, Routine, Nausea and Vomiting (N/V) [facility] diphenhydrA MINE (BENADRYL) tablet 25 mg 2022-09 03:00: 00 08-22 03:19 :00 No 25mg 25 mg, Oral, ONCE, 1 dose, On Airam 08/21/23 at 2100, Routine [facility] ferrous sulfate 325 mg (65 mg iron) tablet 2022-09 00:00: 00 Yes [id number] 325mg Take 1 tablet by mouth in the morning. [facility] ferrous sulfate 325 mg (65 mg iron) tablet 2022-09 00:00: 00 Yes [id number] 325mg Take 1 tablet by mouth in the morning. [facility] ferrous sulfate 325 mg (65 mg iron) tablet 2022-09 00:00: 00 Yes [id number] 325mg Take 1 tablet by mouth in the morning. [facility] ferrous sulfate 325 mg (65 mg iron) tablet 2022-09 00:00: 00 Yes [id number] 325mg Take 1 tablet by mouth in the morning. [facility] ferrous sulfate 325 mg (65 mg iron) tablet 2022-09 00:00: 00 Yes [id number] 325mg Take 1 tablet by mouth in the morning. [facility] ferrous sulfate 325 mg (65 mg iron) tablet 2022-09 00:00: 00 Yes [id number] 325mg Take 1 tablet by mouth in the morning. [facility] ferrous sulfate 325 mg (65 mg iron) tablet 2022-09 00:00: 00 Yes [id number] 325mg Take 1 tablet by mouth in the morning. [facility] ferrous sulfate 325 mg (65 mg iron) tablet 2022-09 00:00: 00 Yes [id number] 325mg Take 1 tablet by mouth in the morning. [facility] ferrous sulfate 325 mg (65 mg iron) tablet 2022-09 00:00: 00 Yes [id number] 325mg Take 1 tablet by mouth in the morning. [facility] ferrous sulfate 325 mg (65 mg iron) tablet 2022-09 00:00: 00 Yes [id number] 325mg Take 1 tablet by mouth in the morning. [facility] ferrous sulfate 325 mg (65 mg iron) tablet 2022-09 00:00: 00 Yes [id number] 325mg Take 1 tablet by mouth in the morning. [facility] ferrous sulfate 325 mg (65 mg iron) tablet 2022-09 00:00: 00 Yes [id number] 325mg Take 1 tablet by mouth in the morning. [facility] ferrous sulfate 325 mg (65 mg iron) tablet 2022-09 00:00: 00 Yes [id number] 325mg Take 1 tablet by mouth in the morning. [facility] ferrous sulfate 325 mg (65 mg iron) tablet 2022-09 00:00: 00 09-26 00:00 :00 No [id number] 325mg Take 1 tablet by mouth in the morning. [facility] cyclobenzap rine (FLEXERIL) tablet 10 mg 2022-09 22:15: 00 08-21 22:06 :00 No 10mg 10 mg, Oral, ONCE NOW, 1 dose, On Fri08/21/23 at 1615, Routine [facility] terbutaline (BRETHINE) injection 0.25 mg 2022-09 19:45: 00 08-21 19:08 :00 No .25mg 0.25 mg, Subcutaneo us, ONCE, 1 dose, On Fri08/21/23 at 1345, Routine [facility] lactated ringers IV infusion 1,000 mL 2022-09 18:00: 00 08-21 19:10 :00 No 1000mL at 999 mL/hr, 1,000 mL, IV Infusion, ONCE, 1 dose, On Fri08/21/23 at 1200, Routine [facility] acetaminoph en (TYLENOL) tablet 1,000 mg 2022-09 17:00: 00 08-21 16:12 :00 No 1000mg 1,000 mg, Oral, ONCE, 1 dose, On Fri08/21/23 at 1100, Routine [facility] ferrous sulfate tablet 325 mg 2022-09 15:00: 00 Yes 325mg 325 mg, Oral, DAILY, First dose on Fri08/21/23 at 0900, Until Discontinu ed, Routine [facility] SERTraline (ZOLOFT) tablet 100 mg 2022-09 15:00: 00 Yes 100mg 100 mg, Oral, DAILY, First dose on Fri08/21/23 at 0900, Until Discontinu ed, Routine [facility] diphenhydrA MINE (BENADRYL) tablet 25 mg 2022-09 09:16: 00 08-21 09:24 :00 No 25mg 25 mg, Oral, ONCE, 1 dose, On Fri08/21/23 at 0330, Routine [facility] fluconazole (DIFLUCAN) tablet 150 mg 2022-09 08:00: 00 08-21 08:00 :00 No 150mg 150 mg, Oral, ONCE, 1 dose, On Airam 08/21/23 at 0200, ABHAY
Re ason for Anti-Infec tive: Documented Infection< br>Documen refugio Infection Site: Pelvic
Duration of Therapy: [address] [facility] alum-mag hydroxide-s imeth (MAG-AL PLUS) 200-200-20 mg/5 mL suspension 30 mL 2022-09 07:05: 45 Yes 30mL 30 mL, Oral, Q6HPRN, Starting on Fri08/21/23 at 0105, Until Discontinu ed, Routine, Indigestio n [facility] docusate (COLACE) capsule 200 mg 2022-09 07:05: 45 Yes 200mg 200 mg, Oral, QHSPRN, Starting on Fri08/21/23 at 0105, Until Discontinu ed, Routine, Constipati on [facility] magnesium hydroxide (MILK OF MAGNESIA) 400 mg/5 mL suspension 30 mL 2022-09 07:05: 45 Yes 30mL 30 mL, Oral, QDAILYPRN, Starting on Fri08/21/23 at 0105, Until Discontinu ed, Routine, Constipati on [facility] ondansetron (ZOFRAN (PF)) injection 4 mg 2022-09 06:45: 00 08-21 06:58 :00 No 4mg 4 mg, Slow IV Push, ONCE, On Airam 08/21/23 at 0045, For 1 dose
Do ses of ondansetro n 16 mg and above need to be administer ed via IV piggyback. For Dose >=24mg ECG monitoring is advisable.
[facility] acetaminoph en (TYLENOL) tablet 1,000 mg 2022-09 06:45: 00 08-21 06:58 :00 No 1000mg 1,000 mg, Oral, ONCE, 1 dose, On Airam 08/21/23 at 0045, Routine [facility] FENTanyl PF (SUBLIMAZE (PF)) injection 100 mcg 2022-09 02:15: 00 08-21 01:26 :00 No 100ug 100 mcg, Slow IV Push, ONCE, 1 dose, On Fri08/20/23 at 2015, Routine [facility] betamethaso ne acet,sod phos (CELESTONE SOLUSPAN) 6 mg/mL injection 12 mg 2022-09 01:45: 00 08-22 01:34 :00 No 12mg 12 mg, Intramuscu lar, Q24H, 2 doses, First dose on Fri08/20/23 at 1945, Last dose on Fri08/21/23 at 1945, Routine [facility] D5W 0.9% NaCl (NS) IV infusion 1,000 mL 2022-09 23:45: 00 08-21 19:39 :48 No 1000mL at 125 mL/hr, 1,000 mL, IV Infusion, CONTINUOUS , Starting on Fri08/20/23 at 1745, Until Fri08/21/23 at 1339, Routine [facility] SERTraline 100 mg tablet 2022-09 00:00: 00 Yes [id number] 109 100mg Take 1 tablet by mouth in the morning. [facility] SERTraline 100 mg tablet 2022-09 00:00: 00 Yes [id number] 109 100mg Take 1 tablet by mouth in the morning. [facility] SERTraline 100 mg tablet 2022-09 00:00: 00 Yes [id number] 109 100mg Take 1 tablet by mouth in the morning. [facility] SERTraline 100 mg tablet 2022-09 00:00: 00 Yes [id number] 109 100mg Take 1 tablet by mouth in the morning. [facility] SERTraline 100 mg tablet 2022-09 00:00: 00 Yes [id number] 109 100mg Take 1 tablet by mouth in the morning. [facility] SERTraline 100 mg tablet 2022-09 00:00: 00 Yes [id number] 109 100mg Take 1 tablet by mouth in the morning. [facility] SERTraline 100 mg tablet 2022-09 00:00: 00 Yes [id number] 109 100mg Take 1 tablet by mouth in the morning. [facility] SERTraline 100 mg tablet 2022-09 00:00: 00 Yes [id number] 109 100mg Take 1 tablet by mouth in the morning. [facility] SERTraline 100 mg tablet 2022-09 00:00: 00 Yes [id number] 109 100mg Take 1 tablet by mouth in the morning. [facility] SERTraline 100 mg tablet 2022-09 00:00: 00 Yes [id number] 109 100mg Take 1 tablet by mouth in the morning. [facility] SERTraline 100 mg tablet 2022-09 00:00: 00 Yes [id number] 109 100mg Take 1 tablet by mouth in the morning. [facility] SERTraline 100 mg tablet 2022-09 00:00: 00 09-11 00:00 :00 No [id number] 109 100mg Take 1 tablet by mouth in the morning. [facility] Nitrofurant oin&Nit. Macrocryst (MACROBID) 100 mg capsule 2022-09 00:00: 00 08-12 05:59 :00 No [id number] 100mg Take 1 capsule by mouth in the morning and 1 capsule in the evening. Do all this for [address] [facility] acetaminoph en (TYLENOL) tablet 650 mg 2022-09 10:00: 00 07-29 09:53 :00 No 650mg 650 mg, Oral, ONCE, 1 dose, On Fri07/29/23 at 0400, Routine [facility] SERTraline 100 mg tablet 05-21 00:00: 00 Yes [id number] 109 100mg Take 1 tablet by mouth in the morning. [facility] SERTraline 100 mg tablet 05-21 00:00: 00 Yes [id number] 109 100mg Take 1 tablet by mouth in the morning. [facility] SERTraline 100 mg tablet 05-21 00:00: 00 Yes [id number] 109 100mg Take 1 tablet by mouth in the morning. [facility] SERTraline 100 mg tablet 8 00:00: 00 Yes [id number] 109 100mg Take 1 tablet by mouth in the morning. [facility] SERTraline 100 mg tablet 05-21 00:00: 00 Yes [id number] 109 100mg Take 1 tablet by mouth in the morning. [facility] SERTraline 100 mg tablet 05-21 00:00: 00 Yes [id number] 109 100mg Take 1 tablet by mouth in the morning. [facility] SERTraline 100 mg tablet 05-21 00:00: 00 Yes [id number] 109 100mg Take 1 tablet by mouth in the morning. [facility] SERTraline 100 mg tablet 05-21 00:00: 00 Yes [id number] 109 100mg Take 1 tablet by mouth in the morning. [facility] SERTraline 100 mg tablet 05-21 00:00: 00 Yes [id number] 109 100mg Take 1 tablet by mouth in the morning. [facility] SERTraline 100 mg tablet 05-21 00:00: 00 Yes [id number] 109 100mg Take 1 tablet by mouth in the morning. [facility] SERTraline 100 mg tablet 05-21 00:00: 00 08-04 00:00 :00 No [id number] 109 100mg Take 1 tablet by mouth in the morning. [facility] ondansetron (ZOFRAN (PF)) injection 4 mg 04-18 20:45: 00 04-18 20:21 :00 No 4mg 4 mg, Slow IV Push, ONCE, On Fri04/18/23 at 1545, For 1 dose
Do ses of ondansetro n 16 mg and above need to be administer ed via IV piggyback. For Dose >=24mg ECG monitoring is advisable.
[facility] NaCl 0.9% (NS) bolus infusion 1,000 mL 04-18 20:30: 00 04-18 19:32 :00 No 1000mL at 999 mL/hr, 1,000 mL, IV Infusion, ONCE, 1 dose, On Fri04/18/23 at 1530, STAT [facility] NaCl 0.9% (NS) bolus infusion 1,000 mL 04-18 19:15: 00 04-18 18:27 :00 No 1000mL at 999 mL/hr, 1,000 mL, IV Infusion, ONCE, 1 dose, On Fri04/18/23 at 1415, STAT [facility] metroNIDAZO LE (FLAGYL) 500 mg tablet 04-18 00:00: 00 Yes [id number] 500mg Take 1 tablet by mouth every 12 (twelve) hours. [facility] metroNIDAZO LE (FLAGYL) 500 mg tablet 04-18 00:00: 00 Yes [id number] 500mg Take 1 tablet by mouth every 12 (twelve) hours. [facility] metroNIDAZO LE (FLAGYL) 500 mg tablet 04-18 00:00: 00 Yes [id number] 500mg Take 1 tablet by mouth every 12 (twelve) hours. [facility] metroNIDAZO LE (FLAGYL) 500 mg tablet 04-18 00:00: 00 Yes [id number] 500mg Take 1 tablet by mouth every 12 (twelve) hours. [facility] metroNIDAZO LE (FLAGYL) 500 mg tablet 2022-0 04-18 00:00: 00 Yes [id number] 500mg Take 1 tablet by mouth every 12 (twelve) hours. [facility] metroNIDAZO LE (FLAGYL) 500 mg tablet 2022-0 04-18 00:00: 00 Yes [id number] 500mg Take 1 tablet by mouth every 12 (twelve) hours. [facility] metroNIDAZO LE (FLAGYL) 500 mg tablet 2022-0 28 00:00: 00 Yes [id number] 500mg Take 1 tablet by mouth every 12 (twelve) hours. [facility] metroNIDAZO LE (FLAGYL) 500 mg tablet 2022-0 28 00:00: 00 Yes [id number] 500mg Take 1 tablet by mouth every 12 (twelve) hours. [facility] metroNIDAZO LE (FLAGYL) 500 mg tablet 2022-0 -28 00:00: 00 Yes [id number] 500mg Take 1 tablet by mouth every 12 (twelve) hours. [facility] metroNIDAZO LE (FLAGYL) 500 mg tablet 2022-0 28 00:00: 00 Yes [id number] 500mg Take 1 tablet by mouth every 12 (twelve) hours. [facility] metroNIDAZO LE (FLAGYL) 500 mg tablet 2022-0 -28 00:00: 00 Yes [id number] 500mg Take 1 tablet by mouth every 12 (twelve) hours. [facility] metroNIDAZO LE (FLAGYL) 500 mg tablet 2022-0 -28 00:00: 00 Yes [id number] 500mg Take 1 tablet by mouth every 12 (twelve) hours. [facility] metroNIDAZO LE (FLAGYL) 500 mg tablet 2022-0 28 00:00: 00 Yes [id number] 500mg Take 1 tablet by mouth every 12 (twelve) hours. [facility] metroNIDAZO LE (FLAGYL) 500 mg tablet 0 04-18 00:00: 00 08-04 00:00 :00 No [id number] 500mg Take 1 tablet by mouth every 12 (twelve) hours. [facility] fluconazole (DIFLUCAN) 150 mg tablet 17 00:00: 00 04-08 04:59 :00 No [id number] 150mg Take 1 tablet by mouth once now for [address] [facility] proMETHazin e 25 mg tablet 0 -13 00:00: 00 Yes [id number] 25mg Take 1 tablet by mouth every 4 (four) hours as needed for Nausea and Vomiting (N/V). [facility] proMETHazin e 25 mg tablet 2022-0 7-13 00:00: 00 Yes [id number] 25mg Take 1 tablet by mouth every 4 (four) hours as needed for Nausea and Vomiting (N/V). [facility] proMETHazin e 25 mg tablet 2023-0 7-13 00:00: 00 Yes [id number] 25mg Take 1 tablet by mouth every 4 (four) hours as needed for Nausea and Vomiting (N/V). [facility] proMETHazin e 25 mg tablet 3-0 7-13 00:00: 00 Yes [id number] 25mg Take 1 tablet by mouth every 4 (four) hours as needed for Nausea and Vomiting (N/V). [facility] proMETHazin e 25 mg tablet 2023-0 7-13 00:00: 00 Yes [id number] 25mg Take 1 tablet by mouth every 4 (four) hours as needed for Nausea and Vomiting (N/V). [facility] proMETHazin e 25 mg tablet 3-0 7-13 00:00: 00 Yes [id number] 25mg Take 1 tablet by mouth every 4 (four) hours as needed for Nausea and Vomiting (N/V). [facility] proMETHazin e 25 mg tablet 3-0 7-13 00:00: 00 Yes [id number] 25mg Take 1 tablet by mouth every 4 (four) hours as needed for Nausea and Vomiting (N/V). [facility] proMETHazin e 25 mg tablet 3-0 7-13 00:00: 00 Yes [id number] 25mg Take 1 tablet by mouth every 4 (four) hours as needed for Nausea and Vomiting (N/V). [facility] proMETHazin e 25 mg tablet 3-0 7-13 00:00: 00 Yes [id number] 25mg Take 1 tablet by mouth every 4 (four) hours as needed for Nausea and Vomiting (N/V). [facility] proMETHazin e 25 mg tablet 2023-0 7-13 00:00: 00 Yes [id number] 25mg Take 1 tablet by mouth every 4 (four) hours as needed for Nausea and Vomiting (N/V). [facility] proMETHazin e 25 mg tablet 3-0 7-13 00:00: 00 Yes [id number] 25mg Take 1 tablet by mouth every 4 (four) hours as needed for Nausea and Vomiting (N/V). [facility] proMETHazin e 25 mg tablet 2023-0 7-13 00:00: 00 Yes [id number] 25mg Take 1 tablet by mouth every 4 (four) hours as needed for Nausea and Vomiting (N/V). [facility] proMETHazin e 25 mg tablet 3-0 7-13 00:00: 00 Yes [id number] 25mg Take 1 tablet by mouth every 4 (four) hours as needed for Nausea and Vomiting (N/V). [facility] proMETHazin e 25 mg tablet 3-0 7-13 00:00: 00 Yes [id number] 25mg Take 1 tablet by mouth every 4 (four) hours as needed for Nausea and Vomiting (N/V). [facility] proMETHazin e 25 mg tablet 3-0 7-13 00:00: 00 Yes [id number] 25mg Take 1 tablet by mouth every 4 (four) hours as needed for Nausea and Vomiting (N/V). [facility] proMETHazin e 25 mg tablet 3-0 7-13 00:00: 00 Yes [id number] 25mg Take 1 tablet by mouth every 4 (four) hours as needed for Nausea and Vomiting (N/V). [facility] proMETHazin e 25 mg tablet 3-0 7-13 00:00: 00 Yes [id number] 25mg Take 1 tablet by mouth every 4 (four) hours as needed for Nausea and Vomiting (N/V). [facility] proMETHazin e 25 mg tablet 3-0 7-13 00:00: 00 Yes [id number] 25mg Take 1 tablet by mouth every 4 (four) hours as needed for Nausea and Vomiting (N/V). [facility] proMETHazin e 25 mg tablet 3-0 7-13 00:00: 00 Yes [id number] 25mg Take 1 tablet by mouth every 4 (four) hours as needed for Nausea and Vomiting (N/V). [facility] proMETHazin e 25 mg tablet 3-0 7-13 00:00: 00 Yes [id number] 25mg Take 1 tablet by mouth every 4 (four) hours as needed for Nausea and Vomiting (N/V). [facility] proMETHazin e 25 mg tablet 3-0 7-13 00:00: 00 Yes [id number] 25mg Take 1 tablet by mouth every 4 (four) hours as needed for Nausea and Vomiting (N/V). [facility] proMETHazin e 25 mg tablet 3-0 7-13 00:00: 00 Yes [id number] 25mg Take 1 tablet by mouth every 4 (four) hours as needed for Nausea and Vomiting (N/V). [facility] proMETHazin e 25 mg tablet 3-0 7-13 00:00: 00 Yes [id number] 25mg Take 1 tablet by mouth every 4 (four) hours as needed for Nausea and Vomiting (N/V). [facility] proMETHazin e 25 mg tablet 3-0 7-13 00:00: 00 Yes [id number] 25mg Take 1 tablet by mouth every 4 (four) hours as needed for Nausea and Vomiting (N/V). [facility] proMETHazin e 25 mg tablet 3-0 713 00:00: 00 Yes [id number] 25mg Take 1 tablet by mouth every 4 (four) hours as needed for Nausea and Vomiting (N/V). [facility] proMETHazin e 25 mg tablet 3-0 713 00:00: 00 Yes [id number] 25mg Take 1 tablet by mouth every 4 (four) hours as needed for Nausea and Vomiting (N/V). [facility] proMETHazin e 25 mg tablet 3-0 713 00:00: 00 Yes [id number] 25mg Take 1 tablet by mouth every 4 (four) hours as needed for Nausea and Vomiting (N/V). [facility] proMETHazin e 25 mg tablet 3-0 7-13 00:00: 00 Yes [id number] 25mg Take 1 tablet by mouth every 4 (four) hours as needed for Nausea and Vomiting (N/V). [facility] proMETHazin e 25 mg tablet 3-0 7-13 00:00: 00 Yes [id number] 25mg Take 1 tablet by mouth every 4 (four) hours as needed for Nausea and Vomiting (N/V). [facility] proMETHazin e 25 mg tablet 2023-0 7-13 00:00: 00 Yes [id number] 25mg Take 1 tablet by mouth every 4 (four) hours as needed for Nausea and Vomiting (N/V). [facility] proMETHazin e 25 mg tablet 04-03 00:00: 00 Yes [id number] 25mg Take 1 tablet by mouth every 4 (four) hours as needed for Nausea and Vomiting (N/V). [facility] proMETHazin e 25 mg tablet 04-03 00:00: 00 Yes [id number] 25mg Take 1 tablet by mouth every 4 (four) hours as needed for Nausea and Vomiting (N/V). [facility] proMETHazin e 25 mg tablet 04-03 00:00: 00 Yes [id number] 25mg Take 1 tablet by mouth every 4 (four) hours as needed for Nausea and Vomiting (N/V). [facility] proMETHazin e 25 mg tablet 04-03 00:00: 00 09-26 00:00 :00 No [id number] 25mg Take 1 tablet by mouth every 4 (four) hours as needed for Nausea and Vomiting (N/V). [facility] SERTraline (ZOLOFT) 50 mg tablet 04-03 00:00: 00 05-08 04:59 :00 No [id number] 109 Take 1 tablet by mouth daily for 4 days, THEN 2 tablets daily for [address] [facility] SERTraline (ZOLOFT) 50 mg tablet 04-03 00:00: 00 05-08 04:59 :00 No [id number] 109 Take 1 tablet by mouth daily for 4 days, THEN 2 tablets daily for [address] [facility] SERTraline (ZOLOFT) 50 mg tablet 04-03 00:00: 00 05-08 04:59 :00 No [id number] 109 Take 1 tablet by mouth daily for 4 days, THEN 2 tablets daily for [address] [facility] SERTraline (ZOLOFT) 50 mg tablet 04-03 00:00: 00 05-08 04:59 :00 No [id number] 109 Take 1 tablet by mouth daily for 4 days, THEN 2 tablets daily for [address] [facility] SERTraline (ZOLOFT) 50 mg tablet 04-03 00:00: 00 05-08 04:59 :00 No [id number] 109 Take 1 tablet by mouth daily for 4 days, THEN 2 tablets daily for [address] [facility] SERTraline (ZOLOFT) 50 mg tablet 04-03 00:00: 00 05-08 04:59 :00 No [id number] 109 Take 1 tablet by mouth daily for 4 days, THEN 2 tablets daily for [address] [facility] vit 33-iron-fol ic-dha (SELECT-OB + DHA) 29 mg iron-1 mg -250 mg combo pack 03-11 00:00: 00 Yes [id number] 1{packe t} Take 1 Packet by mouth in the morning. [facility] vit 33-iron-fol ic-dha (SELECT-OB + DHA) 29 mg iron-1 mg -250 mg combo pack 0 03-11 00:00: 00 Yes [id number] 1{packe t} Take 1 Packet by mouth in the morning. [facility] vit 33-iron-fol ic-dha (SELECT-OB + DHA) 29 mg iron-1 mg -250 mg combo pack 03-11 00:00: 00 Yes [id number] 1{packe t} Take 1 Packet by mouth in the morning. [facility] vit 33-iron-fol ic-dha (SELECT-OB + DHA) 29 mg iron-1 mg -250 mg combo pack 0 03-11 00:00: 00 Yes [id number] 1{packe t} Take 1 Packet by mouth in the morning. [facility] vit 33-iron-fol ic-dha (SELECT-OB + DHA) 29 mg iron-1 mg -250 mg combo pack 0 03-11 00:00: 00 Yes [id number] 1{packe t} Take 1 Packet by mouth in the morning. [facility] vit 33-iron-fol ic-dha (SELECT-OB + DHA) 29 mg iron-1 mg -250 mg combo pack 2023-0 6-20 00:00: 00 Yes [id number] 1{packe t} Take 1 Packet by mouth in the morning. [facility] vit 33-iron-fol ic-dha (SELECT-OB + DHA) 29 mg iron-1 mg -250 mg combo pack 2023-0 6-20 00:00: 00 Yes [id number] 1{packe t} Take 1 Packet by mouth in the morning. [facility] vit 33-iron-fol ic-dha (SELECT-OB + DHA) 29 mg iron-1 mg -250 mg combo pack 2023-0 6-20 00:00: 00 Yes [id number] 1{packe t} Take 1 Packet by mouth in the morning. [facility] vit 33-iron-fol ic-dha (SELECT-OB + DHA) 29 mg iron-1 mg -250 mg combo pack 2023-0 6-20 00:00: 00 Yes [id number] 1{packe t} Take 1 Packet by mouth in the morning. [facility] vit 33-iron-fol ic-dha (SELECT-OB + DHA) 29 mg iron-1 mg -250 mg combo pack 3-0 20 00:00: 00 Yes [id number] 1{packe t} Take 1 Packet by mouth in the morning. [facility] vit 33-iron-fol ic-dha (SELECT-OB + DHA) 29 mg iron-1 mg -250 mg combo pack 3-0 6-20 00:00: 00 Yes [id number] 1{packe t} Take 1 Packet by mouth in the morning. [facility] vit 33-iron-fol ic-dha (SELECT-OB + DHA) 29 mg iron-1 mg -250 mg combo pack 2023-0 6-20 00:00: 00 Yes [id number] 1{packe t} Take 1 Packet by mouth in the morning. [facility] vit 33-iron-fol ic-dha (SELECT-OB + DHA) 29 mg iron-1 mg -250 mg combo pack 2023-0 6-20 00:00: 00 Yes [id number] 1{packe t} Take 1 Packet by mouth in the morning. [facility] vit 33-iron-fol ic-dha (SELECT-OB + DHA) 29 mg iron-1 mg -250 mg combo pack 2023-0 6-20 00:00: 00 Yes [id number] 1{packe t} Take 1 Packet by mouth in the morning. [facility] vit 33-iron-fol ic-dha (SELECT-OB + DHA) 29 mg iron-1 mg -250 mg combo pack 2023-0 6-20 00:00: 00 Yes [id number] 1{packe t} Take 1 Packet by mouth in the morning. [facility] vit 33-iron-fol ic-dha (SELECT-OB + DHA) 29 mg iron-1 mg -250 mg combo pack 2023-0 6-20 00:00: 00 Yes [id number] 1{packe t} Take 1 Packet by mouth in the morning. [facility] vit 33-iron-fol ic-dha (SELECT-OB + DHA) 29 mg iron-1 mg -250 mg combo pack 2023-0 620 00:00: 00 Yes [id number] 1{packe t} Take 1 Packet by mouth in the morning. [facility] vit 33-iron-fol ic-dha (SELECT-OB + DHA) 29 mg iron-1 mg -250 mg combo pack 2023-0 620 00:00: 00 Yes [id number] 1{packe t} Take 1 Packet by mouth in the morning. [facility] vit 33-iron-fol ic-dha (SELECT-OB + DHA) 29 mg iron-1 mg -250 mg combo pack 2023-0 6-20 00:00: 00 Yes [id number] 1{packe t} Take 1 Packet by mouth in the morning. [facility] vit 33-iron-fol ic-dha (SELECT-OB + DHA) 29 mg iron-1 mg -250 mg combo pack 2023-0 6-20 00:00: 00 Yes [id number] 1{packe t} Take 1 Packet by mouth in the morning. [facility] vit 33-iron-fol ic-dha (SELECT-OB + DHA) 29 mg iron-1 mg -250 mg combo pack 2023-0 620 00:00: 00 Yes [id number] 1{packe t} Take 1 Packet by mouth in the morning. [facility] vit 33-iron-fol ic-dha (SELECT-OB + DHA) 29 mg iron-1 mg -250 mg combo pack 2023-0 6-20 00:00: 00 Yes [id number] 1{packe t} Take 1 Packet by mouth in the morning. [facility] vit 33-iron-fol ic-dha (SELECT-OB + DHA) 29 mg iron-1 mg -250 mg combo pack 3-0 6-20 00:00: 00 Yes [id number] 1{packe t} Take 1 Packet by mouth in the morning. [facility] vit 33-iron-fol ic-dha (SELECT-OB + DHA) 29 mg iron-1 mg -250 mg combo pack 3-0 20 00:00: 00 Yes [id number] 1{packe t} Take 1 Packet by mouth in the morning. [facility] vit 33-iron-fol ic-dha (SELECT-OB + DHA) 29 mg iron-1 mg -250 mg combo pack 3-0 20 00:00: 00 Yes [id number] 1{packe t} Take 1 Packet by mouth in the morning. [facility] vit 33-iron-fol ic-dha (SELECT-OB + DHA) 29 mg iron-1 mg -250 mg combo pack 3-0 20 00:00: 00 Yes [id number] 1{packe t} Take 1 Packet by mouth in the morning. [facility] vit 33-iron-fol ic-dha (SELECT-OB + DHA) 29 mg iron-1 mg -250 mg combo pack 3-0 620 00:00: 00 Yes [id number] 1{packe t} Take 1 Packet by mouth in the morning. [facility] vit 33-iron-fol ic-dha (SELECT-OB + DHA) 29 mg iron-1 mg -250 mg combo pack 2023-0 620 00:00: 00 Yes [id number] 1{packe t} Take 1 Packet by mouth in the morning. [facility] vit 33-iron-fol ic-dha (SELECT-OB + DHA) 29 mg iron-1 mg -250 mg combo pack 2023-0 6-20 00:00: 00 Yes [id number] 1{packe t} Take 1 Packet by mouth in the morning. [facility] vit 33-iron-fol ic-dha (SELECT-OB + DHA) 29 mg iron-1 mg -250 mg combo pack 2023-0 6-20 00:00: 00 Yes [id number] 1{packe t} Take 1 Packet by mouth in the morning. [facility] vit 33-iron-fol ic-dha (SELECT-OB + DHA) 29 mg iron-1 mg -250 mg combo pack 2023-0 6-20 00:00: 00 Yes [id number] 1{packe t} Take 1 Packet by mouth in the morning. [facility] vit 33-iron-fol ic-dha (SELECT-OB + DHA) 29 mg iron-1 mg -250 mg combo pack 2023-0 6-20 00:00: 00 Yes [id number] 1{packe t} Take 1 Packet by mouth in the morning. [facility] vit 33-iron-fol ic-dha (SELECT-OB + DHA) 29 mg iron-1 mg -250 mg combo pack 2023-0 6-20 00:00: 00 Yes [id number] 1{packe t} Take 1 Packet by mouth in the morning. [facility] vit 33-iron-fol ic-dha (SELECT-OB + DHA) 29 mg iron-1 mg -250 mg combo pack 2023-0 6-20 00:00: 00 Yes [id number] 1{packe t} Take 1 Packet by mouth in the morning. [facility] vit 33-iron-fol ic-dha (SELECT-OB + DHA) 29 mg iron-1 mg -250 mg combo pack 2023-0 6-20 00:00: 00 Yes [id number] 1{packe t} Take 1 Packet by mouth in the morning. [facility] vit 33-iron-fol ic-dha (SELECT-OB + DHA) 29 mg iron-1 mg -250 mg combo pack 3-0 20 00:00: 00 Yes [id number] 1{packe t} Take 1 Packet by mouth in the morning. [facility] vit 33-iron-fol ic-dha (SELECT-OB + DHA) 29 mg iron-1 mg -250 mg combo pack 3-0 20 00:00: 00 Yes [id number] 1{packe t} Take 1 Packet by mouth in the morning. [facility] vit 33-iron-fol ic-dha (SELECT-OB + DHA) 29 mg iron-1 mg -250 mg combo pack 2022-0 20 00:00: 00 Yes [id number] 1{packe t} Take 1 Packet by mouth in the morning. [facility] vit 33-iron-fol ic-dha (SELECT-OB + DHA) 29 mg iron-1 mg -250 mg combo pack 3-0 20 00:00: 00 Yes [id number] 1{packe t} Take 1 Packet by mouth in the morning. [facility] vit 33-iron-fol ic-dha (SELECT-OB + DHA) 29 mg iron-1 mg -250 mg combo pack 2022-0 20 00:00: 00 20209-26 00:00 :00 No [id number] 1{packe t} Take 1 Packet by mouth in the morning. [facility] proMETHazin e 25 mg tablet 3-0 -30 00:00: 00 Yes [id number] 25mg Take 1 tablet by mouth every 4 (four) hours as needed for Nausea and Vomiting (N/V). [facility] proMETHazin e 25 mg tablet 3-0 5-30 00:00: 00 Yes [id number] 25mg Take 1 tablet by mouth every 4 (four) hours as needed for Nausea and Vomiting (N/V). [facility] proMETHazin e 25 mg tablet 3-0 5-30 00:00: 00 Yes [id number] 25mg Take 1 tablet by mouth every 4 (four) hours as needed for Nausea and Vomiting (N/V). [facility] proMETHazin e 25 mg tablet 02-18 00:00: 00 Yes [id number] 25mg Take 1 tablet by mouth every 4 (four) hours as needed for Nausea and Vomiting (N/V). [facility] proMETHazin e 25 mg tablet 02-18 00:00: 00 Yes [id number] 25mg Take 1 tablet by mouth every 4 (four) hours as needed for Nausea and Vomiting (N/V). [facility] proMETHazin e 25 mg tablet 02-18 00:00: 00 Yes [id number] 25mg Take 1 tablet by mouth every 4 (four) hours as needed for Nausea and Vomiting (N/V). [facility] proMETHazin e 25 mg tablet 02-18 00:00: 00 Yes [id number] 25mg Take 1 tablet by mouth every 4 (four) hours as needed for Nausea and Vomiting (N/V). [facility] proMETHazin e 25 mg tablet 02-18 00:00: 00 04-03 00:00 :00 No [id number] 25mg Take 1 tablet by mouth every 4 (four) hours as needed for Nausea and Vomiting (N/V). [facility] metroNIDAZO LE 500 mg tablet 02-14 00:00: 00 02-15 04:59 :00 No [id number] 2000mg Take 4 tablets by mouth once now for [address] [facility] metroNIDAZO LE 500 mg tablet 02-14 00:00: 00 02-15 04:59 :00 No [id number] 2000mg Take 4 tablets by mouth once now for [address] [facility] ondansetron (ZOFRAN (PF)) injection 4 mg 01-17 04:00: 00 01-17 03:11 :00 No 4mg 4 mg, Slow IV Push, ONCE, 1 dose, On Fri01/16/22 at 2300, [facility] NaCl 0.9% (NS) bolus infusion 1,000 mL 01-17 04:00: 00 01-17 03:52 :00 No 1000mL at 999 mL/hr, 1,000 mL, IV Infusion, ONCE, 1 dose, On Fri01/16/22 at 2300, [facility] ondansetron 4 mg disintegrat ing tablet 01-16 00:00: 00 Yes [id number] 4mg Take 1 tablet by mouth every 8 (eight) hours as needed for Nausea and Vomiting (N/V). [facility] ondansetron 4 mg disintegrat ing tablet 01-16 00:00: 00 Yes [id number] 4mg Take 1 tablet by mouth every 8 (eight) hours as needed for Nausea and Vomiting (N/V). [facility] ondansetron 4 mg disintegrat ing tablet 01-16 00:00: 00 Yes [id number] 4mg Take 1 tablet by mouth every 8 (eight) hours as needed for Nausea and Vomiting (N/V). [facility] ondansetron 4 mg disintegrat ing tablet 01-16 00:00: 00 Yes [id number] 4mg Take 1 tablet by mouth every 8 (eight) hours as needed for Nausea and Vomiting (N/V). [facility] ondansetron 4 mg disintegrat ing tablet 01-16 00:00: 00 Yes [id number] 4mg Take 1 tablet by mouth every 8 (eight) hours as needed for Nausea and Vomiting (N/V). [facility] ondansetron 4 mg disintegrat ing tablet 01-16 00:00: 00 Yes [id number] 4mg Take 1 tablet by mouth every 8 (eight) hours as needed for Nausea and Vomiting (N/V). [facility] ondansetron 4 mg disintegrat ing tablet 01-16 00:00: 00 Yes [id number] 4mg Take 1 tablet by mouth every 8 (eight) hours as needed for Nausea and Vomiting (N/V). [facility] ondansetron 4 mg disintegrat ing tablet 01-16 00:00: 00 Yes [id number] 4mg Take 1 tablet by mouth every 8 (eight) hours as needed for Nausea and Vomiting (N/V). [facility] ondansetron 4 mg disintegrat ing tablet 01-16 00:00: 00 Yes [id number] 4mg Take 1 tablet by mouth every 8 (eight) hours as needed for Nausea and Vomiting (N/V). [facility] ondansetron 4 mg disintegrat ing tablet 01-16 00:00: 00 Yes [id number] 4mg Take 1 tablet by mouth every 8 (eight) hours as needed for Nausea and Vomiting (N/V). [facility] ondansetron 4 mg disintegrat ing tablet 01-16 00:00: 00 Yes [id number] 4mg Take 1 tablet by mouth every 8 (eight) hours as needed for Nausea and Vomiting (N/V). [facility] ondansetron 4 mg disintegrat ing tablet 01-16 00:00: 00 Yes [id number] 4mg Take 1 tablet by mouth every 8 (eight) hours as needed for Nausea and Vomiting (N/V). [facility] ondansetron 4 mg disintegrat ing tablet 01-16 00:00: 00 04-03 00:00 :00 No [id number] 4mg Take 1 tablet by mouth every 8 (eight) hours as needed for Nausea and Vomiting (N/V). [facility] azithromyci n 250 mg tablet 12-17 00:00: 00 Yes [id number] 250mg Take 1 tablet by mouth daily. Take 500 mg day 1, then 250 mg days [address] [facility] azithromyci n 250 mg tablet 12-17 00:00: 00 Yes [id number] 250mg Take 1 tablet by mouth daily. Take 500 mg day 1, then 250 mg days [address] [facility] azithromyci n 250 mg tablet 12-17 00:00: 00 Yes [id number] 250mg Take 1 tablet by mouth daily. Take 500 mg day 1, then 250 mg days [address] [facility] azithromyci n 250 mg tablet 12-17 00:00: 00 02-11 00:00 :00 No [id number] 250mg Take 1 tablet by mouth daily. Take 500 mg day 1, then 250 mg days [address] [facility] azithromyci n 250 mg tablet 12-17 00:00: 00 02-11 00:00 :00 No [id number] 250mg Take 1 tablet by mouth daily. Take 500 mg day 1, then 250 mg days [address] [facility] Nitrofurant oin&Nit. Macrocryst 100 mg capsule 05-04 00:00: 00 05-12 04:59 :00 No [id number] 100mg Take 1 capsule by mouth 2 (two) times daily for [address] [facility] metroNIDAZO LE 500 mg tablet 04-30 00:00: 00 Yes [id number] 500mg Take 1 tablet by mouth every 12 (twelve) hours. [facility] metroNIDAZO LE 500 mg tablet 04-30 00:00: 00 Yes [id number] 500mg Take 1 tablet by mouth every 12 (twelve) hours. [facility] metroNIDAZO LE 500 mg tablet 04-30 00:00: 00 Yes [id number] 500mg Take 1 tablet by mouth every 12 (twelve) hours. [facility] metroNIDAZO LE 500 mg tablet 04-30 00:00: 00 05-04 00:00 :00 No [id number] 500mg Take 1 tablet by mouth every 12 (twelve) hours. [facility] fluconazole (DIFLUCAN) 200 mg tablet 04-29 00:00: 00 Yes [id number] 200mg Take 1 tablet by mouth daily. [facility] fluconazole (DIFLUCAN) 200 mg tablet 04-29 00:00: 00 Yes [id number] 200mg Take 1 tablet by mouth daily. [facility] fluconazole (DIFLUCAN) 200 mg tablet 04-29 00:00: 00 Yes [id number] 200mg Take 1 tablet by mouth daily. [facility] fluconazole (DIFLUCAN) 200 mg tablet 04-29 00:00: 00 Yes [id number] 200mg Take 1 tablet by mouth daily. [facility] fluconazole (DIFLUCAN) 200 mg tablet 04-29 00:00: 00 05-04 00:00 :00 No [id number] 200mg Take 1 tablet by mouth daily. [facility] [id number]-btgt, carb,glu-FA -dss-dha (CITRANATAL DHA, ALGAL OIL,) 27 mg iron-1 mg -50 mg-250 mg Cmpk 01-04 00:00: 00 Yes [id number] 9106 Take 1 TAB-CAP/M2 by mouth daily. [facility] [id number]-tjvp, carb,glu-FA -dss-dha (CITRANATAL DHA, ALGAL OIL,) 27 mg iron-1 mg -50 mg-250 mg Cmpk 01-04 00:00: 00 Yes [id number] 9106 Take 1 TAB-CAP/M2 by mouth daily. [facility] [id number]-yful, carb,glu-FA -dss-dha (CITRANATAL DHA, ALGAL OIL,) 27 mg iron-1 mg -50 mg-250 mg Cmpk 01-04 00:00: 00 Yes [id number] 9106 Take 1 TAB-CAP/M2 by mouth daily. [facility] [id number]-bgba, carb,glu-FA -dss-dha (CITRANATAL DHA, ALGAL OIL,) 27 mg iron-1 mg -50 mg-250 mg Cmpk 01-04 00:00: 00 Yes [id number] 9106 Take 1 TAB-CAP/M2 by mouth daily. [facility] [id number]-blgg, carb,glu-FA -dss-dha (CITRANATAL DHA, ALGAL OIL,) 27 mg iron-1 mg -50 mg-250 mg Cmpk 01-04 00:00: 00 Yes [id number] 9106 Take 1 TAB-CAP/M2 by mouth daily. [facility] [id number]-wear, carb,glu-FA -dss-dha (CITRANATAL DHA, ALGAL OIL,) 27 mg iron-1 mg -50 mg-250 mg Cmpk 01-04 00:00: 00 Yes [id number] 9106 Take 1 TAB-CAP/M2 by mouth daily. [facility] [id number]-ntzg, carb,glu-FA -dss-dha (CITRANATAL DHA, ALGAL OIL,) 27 mg iron-1 mg -50 mg-250 mg Cmpk 01-04 00:00: 00 Yes [id number] 9106 Take 1 TAB-CAP/M2 by mouth daily. [facility] [id number]-zqza, carb,glu-FA -dss-dha (CITRANATAL DHA, ALGAL OIL,) 27 mg iron-1 mg -50 mg-250 mg Cmpk 01-04 00:00: 00 Yes [id number] 9106 Take 1 TAB-CAP/M2 by mouth daily. [facility] [id number]-pepr, carb,glu-FA -dss-dha (CITRANATAL DHA, ALGAL OIL,) 27 mg iron-1 mg -50 mg-250 mg Cmpk 01-04 00:00: 00 Yes [id number] 9106 Take 1 TAB-CAP/M2 by mouth daily. [facility] [id number]-zexu, carb,glu-FA -dss-dha (CITRANATAL DHA, ALGAL OIL,) 27 mg iron-1 mg -50 mg-250 mg Cmpk 01-04 00:00: 00 Yes [id number] 9106 Take 1 TAB-CAP/M2 by mouth daily. [facility] [id number]-upwx, carb,glu-FA -dss-dha (CITRANATAL DHA, ALGAL OIL,) 27 mg iron-1 mg -50 mg-250 mg Cmpk 01-04 00:00: 00 Yes [id number] 9106 Take 1 TAB-CAP/M2 by mouth daily. [facility] [id number]-kekr, carb,glu-FA -dss-dha (CITRANATAL DHA, ALGAL OIL,) 27 mg iron-1 mg -50 mg-250 mg Cmpk 01-04 00:00: 00 Yes [id number] 9106 Take 1 TAB-CAP/M2 by mouth daily. [facility] [id number]-daob, carb,glu-FA -dss-dha (CITRANATAL DHA, ALGAL OIL,) 27 mg iron-1 mg -50 mg-250 mg Cmpk 2019-0 4-15 00:00: 00 Yes [id number] 9106 Take 1 TAB-CAP/M2 by mouth daily. [facility] Immunizations Ordered Immunization Name Filled Immunization Name Date Status Comments Source SARS-COV-2 COVID-19 VACCINE - (MODERNA) 2021-11-01 00:[facility] SARS-COV-2 COVID-19 VACCINE - (MODERNA) 2021-11-01 00:00:00 [facility] SARS-COV-2 COVID-19 VACCINE - (MODERNA) 2021-11-01 00:00:00 [facility] SARS-COV-2 COVID-19 VACCINE - (MODERNA) 2021-11-01 00:00:00 [facility] SARS-COV-2 COVID-19 VACCINE - (MODERNA) 2021-11-01 00:00:00 [facility] SARS-COV-2 COVID-19 VACCINE - (MODERNA) 2021-11-01 00:00:00 [facility] SARS-COV-2 COVID-19 VACCINE - (MODERNA) 2021-11-01 00:00:00 [facility] SARS-COV-2 COVID-19 VACCINE - (MODERNA) 2021-11-01 00:00:00 [facility] SARS-COV-2 COVID-19 VACCINE - (MODERNA) 2021-11-01 00:00:00 [facility]pleted [facility] SARS-COV-2 COVID-19 VACCINE - (MODERNA) 2021-11-01 00:00:00 [facility] SARS-COV-2 COVID-19 VACCINE - (MODERNA) 2021-11-01 00:00:00 [facility]pleted [facility] SARS-COV-2 COVID-19 VACCINE - (MODERNA) 2021-11-01 00:00:00 [facility]pleted [facility] SARS-COV-2 COVID-19 VACCINE - (MODERNA) 2021-11-01 00:00:00 [facility]pleted [facility] SARS-COV-2 COVID-19 VACCINE - (MODERNA) 2021-11-01 00:00:00 [facility]pleted [facility] SARS-COV-2 COVID-19 VACCINE - (MODERNA) 2021-11-01 00:00:00 [facility]pleted [facility] SARS-COV-2 COVID-19 VACCINE - (MODERNA) 2021-11-01 00:00:00 [facility]pleted [facility] SARS-COV-2 COVID-19 VACCINE - (MODERNA) 2021-11-01 00:00:00 [facility] SARS-COV-2 COVID-19 VACCINE - (MODERNA) 2021-11-01 00:00:00 [facility]pleted [facility] SARS-COV-2 COVID-19 VACCINE - (MODERNA) 2021-11-01 00:00:00 [facility]pleted [facility] SARS-COV-2 COVID-19 VACCINE - (MODERNA) 2021-11-01 00:00:00 [facility]pleted [facility] SARS-COV-2 COVID-19 VACCINE - (MODERNA) 2021-11-01 00:00:00 [facility]pleted [facility] SARS-COV-2 COVID-19 VACCINE - (MODERNA) 2021-06-08 00:00:00 [facility]pleted [facility] SARS-COV-2 COVID-19 VACCINE - (MODERNA) 2021-06-08 00:00:00 [facility]pleted [facility] SARS-COV-2 COVID-19 VACCINE - (MODERNA) 2021-06-08 00:00:00 [facility]pleted [facility] SARS-COV-2 COVID-19 VACCINE - (MODERNA) 2021-06-08 00:00:00 [facility]pleted [facility] SARS-COV-2 COVID-19 VACCINE - (MODERNA) 2021-06-08 00:00:00 [facility]pleted [facility] SARS-COV-2 COVID-19 VACCINE - (MODERNA) 2021-06-08 00:00:00 [facility]pleted [facility] SARS-COV-2 COVID-19 VACCINE - (MODERNA) 2021-06-08 00:00:00 [facility]pleted [facility] SARS-COV-2 COVID-19 VACCINE - (MODERNA) 2021-06-08 00:00:00 [facility]pleted [facility] SARS-COV-2 COVID-19 VACCINE - (MODERNA) 2021-06-08 00:00:00 [facility]pleted [facility] SARS-COV-2 COVID-19 VACCINE - (MODERNA) 2021-06-08 00:00:00 [facility]pleted [facility] SARS-COV-2 COVID-19 VACCINE - (MODERNA) 2021-06-08 00:00:00 [facility]pleted [facility] SARS-COV-2 COVID-19 VACCINE - (MODERNA) 2021-06-08 00:00:00 [facility]pleted [facility] SARS-COV-2 COVID-19 VACCINE - (MODERNA) 2021-06-08 00:00:00 [facility]pleted [facility] SARS-COV-2 COVID-19 VACCINE - (MODERNA) 2021-06-08 00:00:00 [facility]pleted [facility] SARS-COV-2 COVID-19 VACCINE - (MODERNA) 2021-06-08 00:00:00 [facility]pleted [facility] SARS-COV-2 COVID-19 VACCINE - (MODERNA) 2021-06-08 00:00:00 [facility]pleted [facility] SARS-COV-2 COVID-19 VACCINE - (MODERNA) 2021-06-08 00:00:00 [facility]pleted [facility] SARS-COV-2 COVID-19 VACCINE - (MODERNA) 2021-06-08 00:00:00 [facility]pleted [facility] SARS-COV-2 COVID-19 VACCINE - (MODERNA) 2021-06-08 00:00:00 [facility]pleted [facility] SARS-COV-2 COVID-19 VACCINE - (MODERNA) 2021-06-08 00:00:00 [facility]pleted [facility] SARS-COV-2 COVID-19 VACCINE - (MODERNA) 2021-06-08 00:00:00 Completed [facility] Influenza Virus Vaccine Quad .5 mL IM 6+ MO 2019-06-29 00:00:00 [facility]pleted [facility] Influenza Virus Vaccine Quad .5 mL IM 6+ MO 2019-06-29 00:00:00 [facility]pleted [facility] Influenza Virus Vaccine Quad .5 mL IM 6+ MO 2019-06-29 00:00:00 Completed [facility] Influenza Virus Vaccine Quad .5 mL IM 6+ MO 2019-06-29 00:00:00 [facility]pleted [facility] Influenza Virus Vaccine Quad .5 mL IM 6+ MO (FLUZONE/FLULAVAL/FL UARIX) 2019-06-29 00:00:00 Completed [facility] Influenza Virus Vaccine Quad .5 mL IM 6+ MO (FLUZONE/FLULAVAL/FL UARIX) 2019-06-29 00:00:00 Completed [facility] Influenza Virus Vaccine Quad .5 mL IM 6+ MO (FLUZONE/FLULAVAL/FL UARIX) 2019-06-29 00:00:00 Completed [facility] Influenza Virus Vaccine Quad .5 mL IM 6+ MO (FLUZONE/FLULAVAL/FL UARIX) 2019-06-29 00:00:00 [facility]pleted [facility] Influenza Virus Vaccine Quad .5 mL IM 6+ MO 2019-06-29 00:00:00 Completed [facility] Influenza Virus Vaccine Quad .5 mL IM 6+ MO 2019-06-29 00:00:00 Completed [facility] Influenza Virus Vaccine Quad .5 mL IM 6+ MO 2019-06-29 00:00:00 Completed [facility] Influenza Virus Vaccine Quad .5 mL IM 6+ MO 2019-06-29 00:00:00 Completed [facility] Influenza Virus Vaccine Quad .5 mL IM 6+ MO 2019-06-29 00:00:00 Completed [facility] Influenza Virus Vaccine Quad .5 mL IM 6+ MO 2019-06-29 00:00:00 Completed [facility] Influenza Virus Vaccine Quad .5 mL IM 6+ MO 2019-06-29 00:00:00 Completed [facility] Influenza Virus Vaccine Quad .5 mL IM 6+ MO 2019-06-29 00:00:00 Completed [facility] Influenza Virus Vaccine Quad .5 mL IM 6+ MO 2019-06-29 00:00:00 Completed [facility] Influenza Virus Vaccine Quad .5 mL IM 6+ MO 2019-06-29 00:00:00 Completed [facility] Influenza Virus Vaccine Quad .5 mL IM 6+ MO 2019-06-29 00:00:00 Completed [facility] Influenza Virus Vaccine Quad .5 mL IM 6+ MO 2019-06-29 00:00:00 Completed [facility] Influenza Virus Vaccine Quad .5 mL IM 6+ MO 2019-06-29 00:00:00 Completed [facility] Influenza Virus Vaccine Quad .5 mL IM 6+ MO 2019-06-29 00:00:00 Completed [facility] Influenza Virus Vaccine Quad .5 mL IM 6+ MO 2019-06-29 00:00:00 Completed [facility] Influenza Virus Vaccine Quad .5 mL IM 6+ MO 2019-06-29 00:00:00 [facility]pleted [facility] TDAP (ADACEL) VACCINE 2019-05-27 00:00:00 [facility]pleted [facility] TDAP (ADACEL) VACCINE 2019-05-27 00:00:00 [facility]pleted [facility] TDAP (ADACEL) VACCINE 2019-05-27 00:00:00 [facility]pleted [facility] TDAP (ADACEL) VACCINE 2019-05-27 00:00:00 [facility]pleted [facility] TDAP (ADACEL) VACCINE 2019-05-27 00:00:00 [facility]pleted [facility] TDAP (ADACEL) VACCINE 2019-05-27 00:00:00 [facility]pleted [facility] TDAP (ADACEL) VACCINE 2019-05-27 00:00:00 [facility]pleted [facility] TDAP (ADACEL) VACCINE 2019-05-27 00:00:00 [facility]pleted [facility] TDAP (ADACEL) VACCINE 2019-05-27 00:00:00 [facility] TDAP (ADACEL) VACCINE 2019-05-27 00:00:00 [facility] TDAP (ADACEL) VACCINE 2019-05-27 00:00:00 Completed [facility] TDAP (ADACEL) VACCINE 2019-05-27 00:00:00 [facility]pleted [facility] TDAP (ADACEL) VACCINE 2019-05-27 00:00:00 Completed [facility] TDAP (ADACEL) VACCINE 2019-05-27 00:00:00 Completed [facility] TDAP (ADACEL) VACCINE 2019-05-27 00:00:00 Completed [facility] TDAP (ADACEL) VACCINE 2019-05-27 00:00:00 Completed [facility] TDAP (ADACEL) VACCINE 2019-05-27 00:00:00 [facility] TDAP (ADACEL) VACCINE 2019-05-27 00:00:00 [facility] TDAP (ADACEL) VACCINE 2019-05-27 00:00:00 Completed [facility] TDAP (ADACEL) VACCINE 2019-05-27 00:00:00 [facility] TDAP (ADACEL) VACCINE 2019-05-27 00:00:00 [facility] TDAP (ADACEL) VACCINE 2019-05-27 00:00:00 Completed [facility] TDAP (ADACEL) VACCINE 2019-05-27 00:00:00 [facility]pleted [facility] TDAP (ADACEL) VACCINE 2019-05-27 00:00:00 [facility]pleted [facility] TDAP (ADACEL) VACCINE 2019-05-27 00:00:00 [facility]pleted [facility] TDAP (ADACEL) VACCINE 2019-04-01 00:00:00 [facility]pleted [facility] TDAP (ADACEL) VACCINE 2019-04-01 00:00:00 [facility]pleted [facility] TDAP (ADACEL) VACCINE 2019-04-01 00:00:00 [facility]pleted [facility] TDAP (ADACEL) VACCINE 2019-04-01 00:00:00 [facility]pleted [facility] TDAP (ADACEL) VACCINE 2019-04-01 00:00:00 [facility]pleted [facility] TDAP (ADACEL) VACCINE 2019-04-01 00:00:00 [facility]pleted [facility] TDAP (ADACEL) VACCINE 2019-04-01 00:00:00 [facility]pleted [facility] TDAP (ADACEL) VACCINE 2019-04-01 00:00:00 [facility]pleted [facility] TDAP (ADACEL) VACCINE 2019-04-01 00:00:00 [facility]pleted [facility] TDAP (ADACEL) VACCINE 2019-04-01 00:00:00 [facility]pleted [facility] TDAP (ADACEL) VACCINE 2019-04-01 00:00:00 [facility] TDAP (ADACEL) VACCINE 2019-04-01 00:00:00 [facility] TDAP (ADACEL) VACCINE 2019-04-01 00:00:00 Completed [facility] TDAP (ADACEL) VACCINE 2019-04-01 00:00:00 [facility] TDAP (ADACEL) VACCINE 2019-04-01 00:00:00 Completed [facility] TDAP (ADACEL) VACCINE 2019-04-01 00:00:00 Completed [facility] TDAP (ADACEL) VACCINE 2019-04-01 00:00:00 Completed [facility] TDAP (ADACEL) VACCINE 2019-04-01 00:00:00 Completed [facility] TDAP (ADACEL) VACCINE 2019-04-01 00:00:00 Completed [facility] TDAP (ADACEL) VACCINE 2019-04-01 00:00:00 [facility] TDAP (ADACEL) VACCINE 2019-04-01 00:00:00 [facility] TDAP (ADACEL) VACCINE 2019-04-01 00:00:00 [facility]pleted [facility] TDAP (ADACEL) VACCINE 2019-04-01 00:00:00 [facility]pleted [facility] TDAP (ADACEL) VACCINE 2019-04-01 00:00:00 [facility]pleted [facility] TDAP (ADACEL) VACCINE 2019-04-01 00:00:00 [facility]pleted [facility] TDAP (ADACEL) VACCINE 2019-04-01 00:00:00 [facility]pleted [facility] TDAP (ADACEL) VACCINE 2019-04-01 00:00:00 [facility]pleted [facility] TDAP (ADACEL) VACCINE 2019-04-01 00:00:00 [facility]pleted [facility] TDAP (ADACEL) VACCINE 2019-04-01 00:00:00 [facility]pleted [facility] TDAP (ADACEL) VACCINE 2019-04-01 00:00:00 [facility]pleted [facility] TDAP (ADACEL) VACCINE 2019-04-01 00:00:00 [facility]pleted [facility] TDAP (ADACEL) VACCINE 2019-04-01 00:00:00 [facility]pleted [facility] TDAP (ADACEL) VACCINE 2019-04-01 00:00:00 [facility]pleted [facility] TDAP (ADACEL) VACCINE 2019-04-01 00:00:00 [facility]pleted [facility] TDAP (ADACEL) VACCINE 2019-04-01 00:00:00 [facility]pleted [facility] TDAP (ADACEL) VACCINE 2019-04-01 00:00:00 [facility]pleted [facility] TDAP (ADACEL) VACCINE 2019-04-01 00:00:00 [facility]pleted [facility] Influenza Virus Vaccine Quad .5 mL IM 6+ MO 2019-01-04 00:00:00 Completed [facility] Influenza Virus Vaccine Quad .5 mL IM 6+ MO 2019-01-04 00:00:00 Completed [facility] Influenza Virus Vaccine Quad .5 mL IM 6+ MO 2019-01-04 00:00:00 Completed [facility] Influenza Virus Vaccine Quad .5 mL IM 6+ MO 2019-01-04 00:00:00 Completed [facility] Influenza Virus Vaccine Quad .5 mL IM 6+ MO 2019-01-04 00:00:00 [facility]pleted [facility] Influenza Virus Vaccine Quad .5 mL IM 6+ MO (FLUZONE/FLULAVAL/FL UARIX) 2019-01-04 00:00:00 Completed [facility] Influenza Virus Vaccine Quad .5 mL IM 6+ MO (FLUZONE/FLULAVAL/FL UARIX) 2019-01-04 00:00:00 Completed [facility] Influenza Virus Vaccine Quad .5 mL IM 6+ MO (FLUZONE/FLULAVAL/FL UARIX) 2019-01-04 00:00:00 Completed [facility] Influenza Virus Vaccine Quad .5 mL IM 6+ MO (FLUZONE/FLULAVAL/FL UARIX) 2019-01-04 00:00:00 Completed [facility] Influenza Virus Vaccine Quad .5 mL IM 6+ MO 2019-01-04 00:00:00 Completed [facility] Influenza Virus Vaccine Quad .5 mL IM 6+ MO 2019-01-04 00:00:00 Completed [facility] Influenza Virus Vaccine Quad .5 mL IM 6+ MO 2019-01-04 00:00:00 Completed [facility] Influenza Virus Vaccine Quad .5 mL IM 6+ MO 2019-01-04 00:00:00 Completed [facility] Influenza Virus Vaccine Quad .5 mL IM 6+ MO 2019-01-04 00:00:00 Completed [facility] Influenza Virus Vaccine Quad .5 mL IM 6+ MO 2019-01-04 00:00:00 Completed [facility] Influenza Virus Vaccine Quad .5 mL IM 6+ MO 2019-01-04 00:00:00 Completed [facility] Influenza Virus Vaccine Quad .5 mL IM 6+ MO 2019-01-04 00:00:00 Completed [facility] Influenza Virus Vaccine Quad .5 mL IM 6+ MO 2019-01-04 00:00:00 Completed [facility] Influenza Virus Vaccine Quad .5 mL IM 6+ MO 2019-01-04 00:00:00 Completed [facility] Influenza Virus Vaccine Quad .5 mL IM 6+ MO 2019-01-04 00:00:00 Completed [facility] Influenza Virus Vaccine Quad .5 mL IM 6+ MO 2019-01-04 00:00:00 Completed [facility] Influenza Virus Vaccine Quad .5 mL IM 6+ MO 2019-01-04 00:00:00 Completed [facility] Influenza Virus Vaccine Quad .5 mL IM 6+ MO 2019-01-04 00:00:00 Completed [facility] Influenza Virus Vaccine Quad .5 mL IM 6+ MO 2019-01-04 00:00:00 Completed [facility] Influenza Virus Vaccine Quad .5 mL IM 6+ MO 2019-01-04 00:00:00 Completed [facility] Influenza Virus Vaccine Quad .5 mL IM 6+ MO 2019-01-04 00:00:00 Completed [facility] Influenza Virus Vaccine Quad .5 mL IM 6+ MO 2019-01-04 00:00:00 Completed [facility] Influenza Virus Vaccine Quad .5 mL IM 6+ MO 2019-01-04 00:00:00 Completed [facility] Influenza Virus Vaccine Quad .5 mL IM 6+ MO 2019-01-04 00:00:00 Completed [facility] Influenza Virus Vaccine Quad .5 mL IM 6+ MO 2019-01-04 00:00:00 Completed [facility] Influenza Virus Vaccine Quad .5 mL IM 6+ MO 2019-01-04 00:00:00 Completed [facility] Influenza Virus Vaccine Quad .5 mL IM 6+ MO 2019-01-04 00:00:00 Completed [facility] Influenza Virus Vaccine Quad .5 mL IM 6+ MO 2019-01-04 00:00:00 Completed [facility] Influenza Virus Vaccine Quad .5 mL IM 6+ MO 2019-01-04 00:00:00 Completed [facility] Influenza Virus Vaccine Quad .5 mL IM 6+ MO 2019-01-04 00:00:00 Completed [facility] Influenza Virus Vaccine Quad .5 mL IM 6+ MO 2019-01-04 00:00:00 Completed [facility] Influenza Virus Vaccine Quad .5 mL IM 6+ MO 2019-01-04 00:00:00 [facility] HPV 2015-04-13 00:00:00 [facility] Meningococcal Polysaccharide (groups A, C, Y and W-135) conjugate vaccine (MCV4P) 2015-04-13 00:00:00 Completed [facility] TDAP (ADACEL) VACCINE 2015-04-13 00:00:00 [facility]pleted [facility] HPV 2015-04-13 00:00:00 [facility] Meningococcal Polysaccharide (groups A, C, Y and W-135) conjugate vaccine (MCV4P) 2015-04-13 00:00:00 Completed [facility] TDAP (ADACEL) VACCINE 2015-04-13 00:00:00 [facility]pleted [facility] HPV 2015-04-13 00:00:00 [facility] HPV 2015-04-13 00:00:00 Completed [facility] Meningococcal Polysaccharide (groups A, C, Y and W-135) conjugate vaccine (MCV4P) 2015-04-13 00:00:00 Completed [facility] TDAP (ADACEL) VACCINE 2015-04-13 00:00:00 Completed [facility] Meningococcal Polysaccharide (groups A, C, Y and W-135) conjugate vaccine (MCV4P) 2015-04-13 00:00:00 Completed [facility] TDAP (ADACEL) VACCINE 2015-04-13 00:00:00 [facility]pleted [facility] HPV 2015-04-13 00:00:00 Completed [facility] Meningococcal Polysaccharide (groups A, C, Y and W-135) conjugate vaccine (MCV4P) 2015-04-13 00:00:00 Completed [facility] TDAP (ADACEL) VACCINE 2015-04-13 00:00:00 [facility]pleted [facility] HPV 2015-04-13 00:00:00 Completed [facility] Meningococcal Polysaccharide (groups A, C, Y and W-135) conjugate vaccine (MCV4P) 2015-04-13 00:00:00 Completed [facility] TDAP (ADACEL) VACCINE 2015-04-13 00:00:00 [facility]pleted [facility] HPV 2015-04-13 00:00:00 [facility]pleted [facility] Meningococcal Polysaccharide (groups A, C, Y and W-135) conjugate vaccine (MCV4P) 2015-04-13 00:00:00 Completed [facility] TDAP (ADACEL) VACCINE 2015-04-13 00:00:00 [facility]pleted [facility] HPV 2015-04-13 00:00:00 Completed [facility] Meningococcal Polysaccharide (groups A, C, Y and W-135) conjugate vaccine (MCV4P) 2015-04-13 00:00:00 Completed [facility] TDAP (ADACEL) VACCINE 2015-04-13 00:00:00 [facility]pleted [facility] HPV 2015-04-13 00:00:00 Completed [facility] Meningococcal Polysaccharide (groups A, C, Y and W-135) conjugate vaccine (MCV4P) 2015-04-13 00:00:00 Completed [facility] TDAP (ADACEL) VACCINE 2015-04-13 00:00:00 [facility] HPV 2015-04-13 00:00:00 [facility] Meningococcal Polysaccharide (groups A, C, Y and W-135) conjugate vaccine (MCV4P) 2015-04-13 00:00:00 [facility] TDAP (ADACEL) VACCINE 2015-04-13 00:00:00 [facility] HPV 2015-04-13 00:00:00 [facility] Meningococcal Polysaccharide (groups A, C, Y and W-135) conjugate vaccine (MCV4P) 2015-04-13 00:00:00 [facility] TDAP (ADACEL) VACCINE 2015-04-13 00:00:00 [facility] HPV 2015-04-13 00:00:00 [facility] Meningococcal Polysaccharide (groups A, C, Y and W-135) conjugate vaccine (MCV4P) 2015-04-13 00:00:00 [facility] TDAP (ADACEL) VACCINE 2015-04-13 00:00:00 [facility] HPV 2015-04-13 00:00:00 [facility] Meningococcal Polysaccharide (groups A, C, Y and W-135) conjugate vaccine (MCV4P) 2015-04-13 00:00:00 [facility] TDAP (ADACEL) VACCINE 2015-04-13 00:00:00 [facility] HPV 2015-04-13 00:00:00 [facility] Meningococcal Polysaccharide (groups A, C, Y and W-135) conjugate vaccine (MCV4P) 2015-04-13 00:00:00 [facility] TDAP (ADACEL) VACCINE 2015-04-13 00:00:00 [facility] HPV 2015-04-13 00:00:00 [facility] Meningococcal Polysaccharide (groups A, C, Y and W-135) conjugate vaccine (MCV4P) 2015-04-13 00:00:00 [facility] TDAP (ADACEL) VACCINE 2015-04-13 00:00:00 [facility] HPV 2015-04-13 00:00:00 [facility] Meningococcal Polysaccharide (groups A, C, Y and W-135) conjugate vaccine (MCV4P) 2015-04-13 00:00:00 [facility] TDAP (ADACEL) VACCINE 2015-04-13 00:00:00 [facility] HPV 2015-04-13 00:00:00 [facility] Meningococcal Polysaccharide (groups A, C, Y and W-135) conjugate vaccine (MCV4P) 2015-04-13 00:00:00 [facility]pleted [facility] TDAP (ADACEL) VACCINE 2015-04-13 00:00:00 [facility] HPV 2015-04-13 00:00:00 [facility] Meningococcal Polysaccharide (groups A, C, Y and W-135) conjugate vaccine (MCV4P) 2015-04-13 00:00:00 [facility]pleted [facility] TDAP (ADACEL) VACCINE 2015-04-13 00:00:00 [facility] HPV 2015-04-13 00:00:00 [facility] Meningococcal Polysaccharide (groups A, C, Y and W-135) conjugate vaccine (MCV4P) 2015-04-13 00:00:00 [facility] HPV 2015-04-13 00:00:00 [facility] Meningococcal Polysaccharide (groups A, C, Y and W-135) conjugate vaccine (MCV4P) 2015-04-13 00:00:00 [facility]pleted [facility] TDAP (ADACEL) VACCINE 2015-04-13 00:00:00 [facility] TDAP (ADACEL) VACCINE 2015-04-13 00:00:00 [facility] HPV 2015-04-13 00:00:00 [facility] Meningococcal Polysaccharide (groups A, C, Y and W-135) conjugate vaccine (MCV4P) 2015-04-13 00:00:00 [facility]pleted [facility] TDAP (ADACEL) VACCINE 2015-04-13 00:00:00 [facility] HPV 2015-04-13 00:00:00 [facility] Meningococcal Polysaccharide (groups A, C, Y and W-135) conjugate vaccine (MCV4P) 2015-04-13 00:00:00 [facility]pleted [facility] TDAP (ADACEL) VACCINE 2015-04-13 00:00:00 [facility] HPV 2015-04-13 00:00:00 [facility] Meningococcal Polysaccharide (groups A, C, Y and W-135) conjugate vaccine (MCV4P) 2015-04-13 00:00:00 [facility]pleted [facility] TDAP (ADACEL) VACCINE 2015-04-13 00:00:00 [facility] HPV 2015-04-13 00:00:00 [facility] Meningococcal Polysaccharide (groups A, C, Y and W-135) conjugate vaccine (MCV4P) 2015-04-13 00:00:00 [facility]pleted [facility] TDAP (ADACEL) VACCINE 2015-04-13 00:00:00 [facility] HPV 2015-04-13 00:00:00 [facility] Meningococcal Polysaccharide (groups A, C, Y and W-135) conjugate vaccine (MCV4P) 2015-04-13 00:00:00 [facility]pleted [facility] TDAP (ADACEL) VACCINE 2015-04-13 00:00:00 [facility] HPV 2015-04-13 00:00:00 [facility] Meningococcal Polysaccharide (groups A, C, Y and W-135) conjugate vaccine (MCV4P) 2015-04-13 00:00:00 [facility]pleted [facility] TDAP (ADACEL) VACCINE 2015-04-13 00:00:00 [facility] HPV 2015-04-13 00:00:00 [facility] Meningococcal Polysaccharide (groups A, C, Y and W-135) conjugate vaccine (MCV4P) 2015-04-13 00:00:00 [facility]pleted [facility] TDAP (ADACEL) VACCINE 2015-04-13 00:00:00 [facility] HPV 2015-04-13 00:00:00 [facility] Meningococcal Polysaccharide (groups A, C, Y and W-135) conjugate vaccine (MCV4P) 2015-04-13 00:00:00 [facility] HPV 2015-04-13 00:00:00 [facility] Meningococcal Polysaccharide (groups A, C, Y and W-135) conjugate vaccine (MCV4P) 2015-04-13 00:00:00 [facility]pleted [facility] TDAP (ADACEL) VACCINE 2015-04-13 00:00:00 [facility]pleted [facility] TDAP (ADACEL) VACCINE 2015-04-13 00:00:00 [facility] HPV 2015-04-13 00:00:00 [facility] Meningococcal Polysaccharide (groups A, C, Y and W-135) conjugate vaccine (MCV4P) 2015-04-13 00:00:00 [facility]pleted [facility] TDAP (ADACEL) VACCINE 2015-04-13 00:00:00 [facility] HPV 2015-04-13 00:00:00 [facility] Meningococcal Polysaccharide (groups A, C, Y and W-135) conjugate vaccine (MCV4P) 2015-04-13 00:00:00 [facility]pleted [facility] TDAP (ADACEL) VACCINE 2015-04-13 00:00:00 [facility] HPV 2015-04-13 00:00:00 [facility]pleted [facility] Meningococcal Polysaccharide (groups A, C, Y and W-135) conjugate vaccine (MCV4P) 2015-04-13 00:00:00 [facility]pleted [facility] TDAP (ADACEL) VACCINE 2015-04-13 00:00:00 [facility] HPV 2015-04-13 00:00:00 [facility]pleted [facility] Meningococcal Polysaccharide (groups A, C, Y and W-135) conjugate vaccine (MCV4P) 2015-04-13 00:00:00 [facility]pleted [facility] TDAP (ADACEL) VACCINE 2015-04-13 00:00:00 [facility] HPV 2015-04-13 00:00:00 [facility]pleted [facility] Meningococcal Polysaccharide (groups A, C, Y and W-135) conjugate vaccine (MCV4P) 2015-04-13 00:00:00 [facility]pleted [facility] TDAP (ADACEL) VACCINE 2015-04-13 00:00:00 [facility] HPV 2015-04-13 00:00:00 [facility]pleted [facility] Meningococcal Polysaccharide (groups A, C, Y and W-135) conjugate vaccine (MCV4P) 2015-04-13 00:00:00 [facility]pleted [facility] TDAP (ADACEL) VACCINE 2015-04-13 00:00:00 [facility] HPV 2015-04-13 00:00:00 [facility]pleted [facility] Meningococcal Polysaccharide (groups A, C, Y and W-135) conjugate vaccine (MCV4P) 2015-04-13 00:00:00 [facility]pleted [facility] TDAP (ADACEL) VACCINE 2015-04-13 00:00:00 [facility] HPV 2015-04-13 00:00:00 [facility]pleted [facility] Meningococcal Polysaccharide (groups A, C, Y and W-135) conjugate vaccine (MCV4P) 2015-04-13 00:00:00 [facility]pleted [facility] TDAP (ADACEL) VACCINE 2015-04-13 00:00:00 [facility] HPV 2012-06-29 00:00:00 [facility] HPV 2012-06-29 00:00:00 [facility] HPV 2012-06-29 00:00:00 [facility] HPV 2012-06-29 00:00:00 [facility] HPV 2012-06-29 00:00:00 [facility] HPV 2012-06-29 00:00:00 [facility] HPV 2012-06-29 00:00:00 [facility] HPV 2012-06-29 00:00:00 [facility] HPV 2012-06-29 00:00:00 [facility] HPV 2012-06-29 00:00:00 [facility] HPV 2012-06-29 00:00:00 [facility] HPV 2012-06-29 00:00:00 [facility] HPV 2012-06-29 00:00:00 [facility] HPV 2012-06-29 00:00:00 [facility] HPV 2012-06-29 00:00:00 [facility] HPV 2012-06-29 00:00:00 [facility] HPV 2012-06-29 00:00:00 [facility] HPV 2012-06-29 00:00:00 [facility] HPV 2012-06-29 00:00:00 [facility] HPV 2012-06-29 00:00:00 [facility] HPV 2012-06-29 00:00:00 [facility] HPV 2012-06-29 00:00:00 [facility] HPV 2012-06-29 00:00:00 [facility] HPV 2012-06-29 00:00:00 [facility] Tetanus/Diptheria 2009-12-12 00:00:00 [facility]pleted [facility] Meningococcal Polysaccharide (groups A, C, Y and W-135) conjugate vaccine (MCV4P) 2009-12-12 00:00:00 [facility]pleted [facility] Varicella (varivax)(chicken pox) 2009-12-12 00:00:00 [facility]pleted [facility] HEPATITIS A 2009-12-12 00:00:00 [facility]pleted [facility] Tetanus/Diptheria 2009-12-12 00:00:00 [facility]pleted [facility] Meningococcal Polysaccharide (groups A, C, Y and W-135) conjugate vaccine (MCV4P) 2009-12-12 00:00:00 [facility]pleted [facility] Varicella (varivax)(chicken pox) 2009-12-12 00:00:00 [facility]pleted [facility] HEPATITIS A 2009-12-12 00:00:00 [facility]pleted [facility] Tetanus/Diptheria 2009-12-12 00:00:00 [facility]pleted [facility] Meningococcal Polysaccharide (groups A, C, Y and W-135) conjugate vaccine (MCV4P) 2009-12-12 00:00:00 [facility]pleted [facility] Varicella (varivax)(chicken pox) 2009-12-12 00:00:00 [facility]pleted [facility] HEPATITIS A 2009-12-12 00:00:00 [facility]pleted [facility] Tetanus/Diptheria 2009-12-12 00:00:00 [facility]pleted [facility] Meningococcal Polysaccharide (groups A, C, Y and W-135) conjugate vaccine (MCV4P) 2009-12-12 00:00:00 [facility]pleted [facility] Varicella (varivax)(chicken pox) 2009-12-12 00:00:00 [facility]pleted [facility] HEPATITIS A 2009-12-12 00:00:00 [facility]pleted [facility] Tetanus/Diptheria 2009-12-12 00:00:00 Completed [facility] Meningococcal Polysaccharide (groups A, C, Y and W-135) conjugate vaccine (MCV4P) 2009-12-12 00:00:00 [facility]pleted [facility] Varicella (varivax)(chicken pox) 2009-12-12 00:00:00 [facility]pleted [facility] HEPATITIS A 2009-12-12 00:00:00 [facility]pleted [facility] Tetanus/Diptheria 2009-12-12 00:00:00 [facility]pleted [facility] Meningococcal Polysaccharide (groups A, C, Y and W-135) conjugate vaccine (MCV4P) 2009-12-12 00:00:00 [facility]pleted [facility] Varicella (varivax)(chicken pox) 2009-12-12 00:00:00 [facility]pleted [facility] HEPATITIS A 2009-12-12 00:00:00 [facility]pleted [facility] Tetanus/Diptheria 2009-12-12 00:00:00 [facility]pleted [facility] Meningococcal Polysaccharide (groups A, C, Y and W-135) conjugate vaccine (MCV4P) 2009-12-12 00:00:00 [facility]pleted [facility] Varicella (varivax)(chicken pox) 2009-12-12 00:00:00 [facility]pleted [facility] HEPATITIS A 2009-12-12 00:00:00 [facility]pleted [facility] Tetanus/Diptheria 2009-12-12 00:00:00 [facility]pleted [facility] Meningococcal Polysaccharide (groups A, C, Y and W-135) conjugate vaccine (MCV4P) 2009-12-12 00:00:00 [facility]pleted [facility] Varicella (varivax)(chicken pox) 2009-12-12 00:00:00 [facility]pleted [facility] HEPATITIS A 2009-12-12 00:00:00 [facility]pleted [facility] Tetanus/Diptheria 2009-12-12 00:00:00 [facility]pleted [facility] Meningococcal Polysaccharide (groups A, C, Y and W-135) conjugate vaccine (MCV4P) 2009-12-12 00:00:00 [facility]pleted [facility] Varicella (varivax)(chicken pox) 2009-12-12 00:00:00 [facility]pleted [facility] Meningococcal Polysaccharide (groups A, C, Y and W-135) conjugate vaccine (MCV4P) 2009-12-12 00:00:00 [facility]pleted [facility] Varicella (varivax)(chicken pox) 2009-12-12 00:00:00 [facility]pleted [facility] Meningococcal Polysaccharide (groups A, C, Y and W-135) conjugate vaccine (MCV4P) 2009-12-12 00:00:00 [facility]pleted [facility] Varicella (varivax)(chicken pox) 2009-12-12 00:00:00 [facility]pleted [facility] Meningococcal Polysaccharide (groups A, C, Y and W-135) conjugate vaccine (MCV4P) 2009-12-12 00:00:00 [facility]pleted [facility] Varicella (varivax)(chicken pox) 2009-12-12 00:00:00 [facility]pleted [facility] HEPATITIS A 2009-12-12 00:00:00 [facility]pleted [facility] Tetanus/Diptheria 2009-12-12 00:00:00 [facility]pleted [facility] Meningococcal Polysaccharide (groups A, C, Y and W-135) conjugate vaccine (MCV4P) 2009-12-12 00:00:00 [facility]pleted [facility] Varicella (varivax)(chicken pox) 2009-12-12 00:00:00 [facility]pleted [facility] HEPATITIS A 2009-12-12 00:00:00 [facility]pleted [facility] Tetanus/Diptheria 2009-12-12 00:00:00 [facility]pleted [facility] Meningococcal Polysaccharide (groups A, C, Y and W-135) conjugate vaccine (MCV4P) 2009-12-12 00:00:00 [facility]pleted [facility] Varicella (varivax)(chicken pox) 2009-12-12 00:00:00 [facility]pleted [facility] HEPATITIS A 2009-12-12 00:00:00 [facility]pleted [facility] Tetanus/Diptheria 2009-12-12 00:00:00 [facility]pleted [facility] Meningococcal Polysaccharide (groups A, C, Y and W-135) conjugate vaccine (MCV4P) 2009-12-12 00:00:00 Completed [facility] Varicella (varivax)(chicken pox) 2009-12-12 00:00:00 [facility]pleted [facility] HEPATITIS A 2009-12-12 00:00:00 [facility]pleted [facility] Tetanus/Diptheria 2009-12-12 00:00:00 [facility]pleted [facility] Meningococcal Polysaccharide (groups A, C, Y and W-135) conjugate vaccine (MCV4P) 2009-12-12 00:00:00 [facility]pleted [facility] Varicella (varivax)(chicken pox) 2009-12-12 00:00:00 [facility]pleted [facility] HEPATITIS A 2009-12-12 00:00:00 [facility]pleted [facility] Tetanus/Diptheria 2009-12-12 00:00:00 [facility]pleted [facility] Meningococcal Polysaccharide (groups A, C, Y and W-135) conjugate vaccine (MCV4P) 2009-12-12 00:00:00 [facility]pleted [facility] Varicella (varivax)(chicken pox) 2009-12-12 00:00:00 [facility]pleted [facility] HEPATITIS A 2009-12-12 00:00:00 [facility]pleted [facility] Tetanus/Diptheria 2009-12-12 00:00:00 [facility]pleted [facility] Meningococcal Polysaccharide (groups A, C, Y and W-135) conjugate vaccine (MCV4P) 2009-12-12 00:00:00 Completed [facility] Varicella (varivax)(chicken pox) 2009-12-12 00:00:00 [facility]pleted [facility] HEPATITIS A 2009-12-12 00:00:00 [facility]pleted [facility] Tetanus/Diptheria 2009-12-12 00:00:00 [facility]pleted [facility] Meningococcal Polysaccharide (groups A, C, Y and W-135) conjugate vaccine (MCV4P) 2009-12-12 00:00:00 [facility]pleted [facility] Varicella (varivax)(chicken pox) 2009-12-12 00:00:00 [facility]pleted [facility] HEPATITIS A 2009-12-12 00:00:00 [facility]pleted [facility] Tetanus/Diptheria 2009-12-12 00:00:00 [facility]pleted [facility] Meningococcal Polysaccharide (groups A, C, Y and W-135) conjugate vaccine (MCV4P) 2009-12-12 00:00:00 [facility]pleted [facility] Varicella (varivax)(chicken pox) 2009-12-12 00:00:00 [facility]pleted [facility] HEPATITIS A 2009-12-12 00:00:00 [facility]pleted [facility] Tetanus/Diptheria 2009-12-12 00:00:00 [facility]pleted [facility] Meningococcal Polysaccharide (groups A, C, Y and W-135) conjugate vaccine (MCV4P) 2009-12-12 00:00:00 [facility]pleted [facility] Varicella (varivax)(chicken pox) 2009-12-12 00:00:00 [facility]pleted [facility] HEPATITIS A 2009-12-12 00:00:00 [facility]pleted [facility] Tetanus/Diptheria 2009-12-12 00:00:00 [facility]pleted [facility] Meningococcal Polysaccharide (groups A, C, Y and W-135) conjugate vaccine (MCV4P) 2009-12-12 00:00:00 Completed [facility] Varicella (varivax)(chicken pox) 2009-12-12 00:00:00 [facility]pleted [facility] HEPATITIS A 2009-12-12 00:00:00 [facility]pleted [facility] Tetanus/Diptheria 2009-12-12 00:00:00 [facility]pleted [facility] Meningococcal Polysaccharide (groups A, C, Y and W-135) conjugate vaccine (MCV4P) 2009-12-12 00:00:00 [facility]pleted [facility] Varicella (varivax)(chicken pox) 2009-12-12 00:00:00 [facility]pleted [facility] HEPATITIS A 2009-12-12 00:00:00 [facility]pleted [facility] Tetanus/Diptheria 2009-12-12 00:00:00 [facility]pleted [facility] Meningococcal Polysaccharide (groups A, C, Y and W-135) conjugate vaccine (MCV4P) 2009-12-12 00:00:00 [facility]pleted [facility] Varicella (varivax)(chicken pox) 2009-12-12 00:00:00 [facility]pleted [facility] HEPATITIS A 2009-12-12 00:00:00 [facility]pleted [facility] DTaP, Unspecified Formulation 2003-04-28 00:00:00 [facility]pleted [facility] MMR 2003-04-28 00:00:00 [facility] IPV 2003-04-28 00:00:00 [facility]pleted [facility] DTaP, Unspecified Formulation 2003-04-28 00:00:00 [facility]pleted [facility] MMR 2003-04-28 00:00:00 [facility] IPV 2003-04-28 00:00:00 [facility]pleted [facility] DTaP, Unspecified Formulation 2003-04-28 00:00:00 [facility]pleted [facility] MMR 2003-04-28 00:00:00 [facility] IPV 2003-04-28 00:00:00 [facility]pleted [facility] DTaP, Unspecified Formulation 2003-04-28 00:00:00 [facility]pleted [facility] MMR 2003-04-28 00:00:00 [facility] IPV 2003-04-28 00:00:00 [facility]pleted [facility] DTaP, Unspecified Formulation 2003-04-28 00:00:00 [facility]pleted [facility] MMR 2003-04-28 00:00:00 [facility] IPV 2003-04-28 00:00:00 [facility]pleted [facility] DTaP, Unspecified Formulation 2003-04-28 00:00:00 [facility]pleted [facility] MMR 2003-04-28 00:00:00 [facility] IPV 2003-04-28 00:00:00 [facility]pleted [facility] DTaP, Unspecified Formulation 2003-04-28 00:00:00 [facility] MMR 2003-04-28 00:00:00 [facility] IPV 2003-04-28 00:00:00 [facility]pleted [facility] DTaP, Unspecified Formulation 2003-04-28 00:00:00 [facility]pleted [facility] MMR 2003-04-28 00:00:00 [facility] IPV 2003-04-28 00:00:00 [facility]pleted [facility] DTaP, Unspecified Formulation 2003-04-28 00:00:00 [facility]pleted [facility] MMR 2003-04-28 00:00:00 [facility] IPV 2003-04-28 00:00:00 [facility]pleted [facility] DTaP, Unspecified Formulation 2003-04-28 00:00:00 [facility]pleted [facility] MMR 2003-04-28 00:00:00 [facility] IPV 2003-04-28 00:00:00 [facility]pleted [facility] DTaP, Unspecified Formulation 2003-04-28 00:00:00 [facility] MMR 2003-04-28 00:00:00 [facility] IPV 2003-04-28 00:00:00 [facility]pleted [facility] DTaP, Unspecified Formulation 2003-04-28 00:00:00 [facility] MMR 2003-04-28 00:00:00 [facility] IPV 2003-04-28 00:00:00 [facility]pleted [facility] DTaP, Unspecified Formulation 2003-04-28 00:00:00 [facility] MMR 2003-04-28 00:00:00 [facility] IPV 2003-04-28 00:00:00 [facility]pleted [facility] DTaP, Unspecified Formulation 2003-04-28 00:00:00 [facility] MMR 2003-04-28 00:00:00 [facility] IPV 2003-04-28 00:00:00 [facility]pleted [facility] DTaP, Unspecified Formulation 2003-04-28 00:00:00 [facility] MMR 2003-04-28 00:00:00 [facility] IPV 2003-04-28 00:00:00 [facility]pleted [facility] DTaP, Unspecified Formulation 2003-04-28 00:00:00 [facility] MMR 2003-04-28 00:00:00 [facility] IPV 2003-04-28 00:00:00 [facility]pleted [facility] DTaP, Unspecified Formulation 2003-04-28 00:00:00 [facility] MMR 2003-04-28 00:00:00 [facility] IPV 2003-04-28 00:00:00 [facility]pleted [facility] DTaP, Unspecified Formulation 2003-04-28 00:00:00 [facility] MMR 2003-04-28 00:00:00 [facility] IPV 2003-04-28 00:00:00 [facility]pleted [facility] DTaP, Unspecified Formulation 2003-04-28 00:00:00 [facility] MMR 2003-04-28 00:00:00 [facility] IPV 2003-04-28 00:00:00 [facility]pleted [facility] DTaP, Unspecified Formulation 2003-04-28 00:00:00 [facility] MMR 2003-04-28 00:00:00 [facility] IPV 2003-04-28 00:00:00 [facility]pleted [facility] DTaP, Unspecified Formulation 2003-04-28 00:00:00 [facility] MMR 2003-04-28 00:00:00 [facility] IPV 2003-04-28 00:00:00 [facility] HIB 4 Dose Schedule 2002-11-11 00:00:00 [facility] Hep B, Adol or Pedi Dosage 2002-11-11 00:00:00 [facility]pleted [facility] MMR 2002-11-11 00:00:00 [facility]pleted [facility] DTaP, Unspecified Formulation 2002-11-11 00:00:00 [facility]pleted [facility] Polio (IPV/OPV) 2002-11-11 00:00:00 [facility] IPV 2002-11-11 00:00:00 [facility]pleted [facility] Varicella (varivax)(chicken pox) 2002-11-11 00:00:00 [facility] DTAP 2002-11-11 00:00:00 [facility] Hep B, Adol or Pedi Dosage 2002-11-11 00:00:00 [facility]pleted [facility] HIB 4 Dose Schedule 2002-11-11 00:00:00 [facility]pleted [facility] DTaP, Unspecified Formulation 2002-11-11 00:00:00 [facility]pleted [facility] Polio (IPV/OPV) 2002-11-11 00:00:00 [facility] IPV 2002-11-11 00:00:00 [facility] MMR 2002-11-11 00:00:00 [facility] Varicella (varivax)(chicken pox) 2002-11-11 00:00:00 [facility]pleted [facility] DTaP, Unspecified Formulation 2002-11-11 00:00:00 [facility] IPV 2002-11-11 00:00:00 [facility]pleted [facility] DTaP, Unspecified Formulation 2002-11-11 00:00:00 [facility] IPV 2002-11-11 00:00:00 [facility]pleted [facility] DTaP, Unspecified Formulation 2002-11-11 00:00:00 [facility] IPV 2002-11-11 00:00:00 [facility] DTAP 2002-11-11 00:00:00 [facility] HIB 4 Dose Schedule 2002-11-11 00:00:00 [facility] Hep B, Adol or Pedi Dosage 2002-11-11 00:00:00 [facility]pleted [facility] DTaP, Unspecified Formulation 2002-11-11 00:00:00 [facility] MMR 2002-11-11 00:00:00 [facility] IPV 2002-11-11 00:00:00 [facility] Polio (IPV/OPV) 2002-11-11 00:00:00 [facility]pleted [facility] Varicella (varivax)(chicken pox) 2002-11-11 00:00:00 [facility] DTAP 2002-11-11 00:00:00 [facility] Hep B, Adol or Pedi Dosage 2002-11-11 00:00:00 [facility]pleted [facility] DTaP, Unspecified Formulation 2002-11-11 00:00:00 [facility]pleted [facility] HIB 4 Dose Schedule 2002-11-11 00:00:00 [facility] IPV 2002-11-11 00:00:00 [facility] Polio (IPV/OPV) 2002-11-11 00:00:00 [facility] MMR 2002-11-11 00:00:00 [facility] DTaP, Unspecified Formulation 2002-11-11 00:00:00 [facility] Varicella (varivax)(chicken pox) 2002-11-11 00:00:00 [facility] IPV 2002-11-11 00:00:00 [facility] DTAP 2002-11-11 00:00:00 [facility] HIB 4 Dose Schedule 2002-11-11 00:00:00 [facility] Hep B, Adol or Pedi Dosage 2002-11-11 00:00:00 [facility] MMR 2002-11-11 00:00:00 [facility]pleted [facility] Polio (IPV/OPV) 2002-11-11 00:00:00 [facility] Varicella (varivax)(chicken pox) 2002-11-11 00:00:00 [facility] DTAP 2002-11-11 00:00:00 [facility] Hep B, Adol or Pedi Dosage 2002-11-11 00:00:00 [facility]pleted [facility] HIB 4 Dose Schedule 2002-11-11 00:00:00 [facility]pleted [facility] Polio (IPV/OPV) 2002-11-11 00:00:00 [facility] MMR 2002-11-11 00:00:00 [facility] Varicella (varivax)(chicken pox) 2002-11-11 00:00:00 [facility] DTAP 2002-11-11 00:00:00 [facility] HIB 4 Dose Schedule 2002-11-11 00:00:00 [facility] Hep B, Adol or Pedi Dosage 2002-11-11 00:00:00 [facility] MMR 2002-11-11 00:00:00 [facility] Polio (IPV/OPV) 2002-11-11 00:00:00 [facility]pleted [facility] Varicella (varivax)(chicken pox) 2002-11-11 00:00:00 [facility] DTAP 2002-11-11 00:00:00 [facility] Hep B, Adol or Pedi Dosage 2002-11-11 00:00:00 [facility]pleted [facility] HIB 4 Dose Schedule 2002-11-11 00:00:00 [facility]pleted [facility] Polio (IPV/OPV) 2002-11-11 00:00:00 [facility] MMR 2002-11-11 00:00:00 [facility] Varicella (varivax)(chicken pox) 2002-11-11 00:00:00 [facility] DTAP 2002-11-11 00:00:00 [facility] HIB 4 Dose Schedule 2002-11-11 00:00:00 [facility] Hep B, Adol or Pedi Dosage 2002-11-11 00:00:00 [facility] MMR 2002-11-11 00:00:00 [facility]pleted [facility] Polio (IPV/OPV) 2002-11-11 00:00:00 [facility]pleted [facility] Varicella (varivax)(chicken pox) 2002-11-11 00:00:00 [facility] DTAP 2002-11-11 00:00:00 [facility] Hep B, Adol or Pedi Dosage 2002-11-11 00:00:00 [facility]pleted [facility] HIB 4 Dose Schedule 2002-11-11 00:00:00 [facility]pleted [facility] Polio (IPV/OPV) 2002-11-11 00:00:00 [facility] MMR 2002-11-11 00:00:00 [facility] Varicella (varivax)(chicken pox) 2002-11-11 00:00:00 [facility] DTAP 2002-11-11 00:00:00 [facility]pleted [facility] HIB 4 Dose Schedule 2002-11-11 00:00:00 [facility] Hep B, Adol or Pedi Dosage 2002-11-11 00:00:00 [facility] MMR 2002-11-11 00:00:00 [facility]pleted [facility] Polio (IPV/OPV) 2002-11-11 00:00:00 [facility]pleted [facility] Varicella (varivax)(chicken pox) 2002-11-11 00:00:00 [facility] DTAP 2002-11-11 00:00:00 [facility] Hep B, Adol or Pedi Dosage 2002-11-11 00:00:00 [facility]pleted [facility] HIB 4 Dose Schedule 2002-11-11 00:00:00 [facility]pleted [facility] Polio (IPV/OPV) 2002-11-11 00:00:00 [facility] MMR 2002-11-11 00:00:00 [facility]pleted [facility] Varicella (varivax)(chicken pox) 2002-11-11 00:00:00 [facility] DTAP 2002-11-11 00:00:00 [facility] DTAP 2002-11-11 00:00:00 [facility]pleted [facility] HIB 4 Dose Schedule 2002-11-11 00:00:00 [facility]pleted [facility] HIB 4 Dose Schedule 2002-11-11 00:00:00 [facility] Hep B, Adol or Pedi Dosage 2002-11-11 00:00:00 [facility] MMR 2002-11-11 00:00:00 [facility]pleted [facility] Polio (IPV/OPV) 2002-11-11 00:00:00 Completed [facility] Varicella (varivax)(chicken pox) 2002-11-11 00:00:00 [facility] DTAP 2002-11-11 00:00:00 [facility] Hep B, Adol or Pedi Dosage 2002-11-11 00:00:00 [facility]pleted [facility] HIB 4 Dose Schedule 2002-11-11 00:00:00 [facility]pleted [facility] Polio (IPV/OPV) 2002-11-11 00:00:00 [facility] MMR 2002-11-11 00:00:00 [facility] Hep B, Adol or Pedi Dosage 2002-11-11 00:00:00 Completed [facility] Varicella (varivax)(chicken pox) 2002-11-11 00:00:00 [facility] MMR 2002-11-11 00:00:00 [facility] DTAP 2002-11-11 00:00:00 [facility]pleted [facility] HIB 4 Dose Schedule 2002-11-11 00:00:00 [facility]pleted [facility] Hep B, Adol or Pedi Dosage 2002-11-11 00:00:00 [facility] MMR 2002-11-11 00:00:00 [facility]pleted [facility] Polio (IPV/OPV) 2002-11-11 00:00:00 [facility]pleted [facility] Varicella (varivax)(chicken pox) 2002-11-11 00:00:00 [facility]pleted [facility] Polio (IPV/OPV) 2002-11-11 00:00:00 [facility] DTAP 2002-11-11 00:00:00 [facility] Hep B, Adol or Pedi Dosage 2002-11-11 00:00:00 [facility]pleted [facility] HIB 4 Dose Schedule 2002-11-11 00:00:00 Completed [facility] Polio (IPV/OPV) 2002-11-11 00:00:00 [facility]pleted [facility] MMR 2002-11-11 00:00:00 Completed [facility] Varicella (varivax)(chicken pox) 2002-11-11 00:00:00 Completed [facility] Varicella (varivax)(chicken pox) 2002-11-11 00:00:00 [facility]pleted [facility] DTAP 2002-11-11 00:00:00 [facility] DTAP 2002-11-11 00:00:00 [facility]pleted [facility] HIB 4 Dose Schedule 2002-11-11 00:00:00 [facility]pleted [facility] Hep B, Adol or Pedi Dosage 2002-11-11 00:00:00 [facility]pleted [facility] MMR 2002-11-11 00:00:00 Completed [facility] Polio (IPV/OPV) 2002-11-11 00:00:00 Completed [facility] Varicella (varivax)(chicken pox) 2002-11-11 00:00:00 [facility]pleted [facility] DTAP 2002-11-11 00:00:00 [facility]pleted [facility] Hep B, Adol or Pedi Dosage 2002-11-11 00:00:00 Completed [facility] HIB 4 Dose Schedule 2002-11-11 00:00:00 [facility]pleted [facility] Hep B, Adol or Pedi Dosage 2002-11-11 00:00:00 Completed [facility] Polio (IPV/OPV) 2002-11-11 00:00:00 [facility] MMR 2002-11-11 00:00:00 [facility]pleted [facility] Varicella (varivax)(chicken pox) 2002-11-11 00:00:00 Completed [facility] HIB 4 Dose Schedule 2002-11-11 00:00:00 [facility]pleted [facility] DTAP 2002-11-11 00:00:00 [facility]pleted [facility] HIB 4 Dose Schedule 2002-11-11 00:00:00 [facility]pleted [facility] Hep B, Adol or Pedi Dosage 2002-11-11 00:00:00 [facility]pleted [facility] MMR 2002-11-11 00:00:00 [facility]pleted [facility] Polio (IPV/OPV) 2002-11-11 00:00:00 Completed [facility] Varicella (varivax)(chicken pox) 2002-11-11 00:00:00 [facility]pleted [facility] Polio (IPV/OPV) 2002-11-11 00:00:00 [facility] DTAP 2002-11-11 00:00:00 [facility] Hep B, Adol or Pedi Dosage 2002-11-11 00:00:00 Completed [facility] HIB 4 Dose Schedule 2002-11-11 00:00:00 Completed [facility] Polio (IPV/OPV) 2002-11-11 00:00:00 [facility]pleted [facility] MMR 2002-11-11 00:00:00 Completed [facility] Varicella (varivax)(chicken pox) 2002-11-11 00:00:00 [facility]pleted [facility] MMR 2002-11-11 00:00:00 Completed [facility] Varicella (varivax)(chicken pox) 2002-11-11 00:00:00 [facility] DTAP 2002-11-11 00:00:00 [facility]pleted [facility] HIB 4 Dose Schedule 2002-11-11 00:00:00 [facility]pleted [facility] Hep B, Adol or Pedi Dosage 2002-11-11 00:00:00 [facility]pleted [facility] MMR 2002-11-11 00:00:00 [facility]pleted [facility] Polio (IPV/OPV) 2002-11-11 00:00:00 Completed [facility] Varicella (varivax)(chicken pox) 2002-11-11 00:00:00 [facility] DTAP 2002-11-11 00:00:00 [facility] Hep B, Adol or Pedi Dosage 2002-11-11 00:00:00 Completed [facility] HIB 4 Dose Schedule 2002-11-11 00:00:00 Completed [facility] Polio (IPV/OPV) 2002-11-11 00:00:00 [facility]pleted [facility] MMR 2002-11-11 00:00:00 Completed [facility] Varicella (varivax)(chicken pox) 2002-11-11 00:00:00 [facility] DTAP 2002-11-11 00:00:00 [facility]pleted [facility] HIB 4 Dose Schedule 2002-11-11 00:00:00 [facility]pleted [facility] Hep B, Adol or Pedi Dosage 2002-11-11 00:00:00 [facility]pleted [facility] MMR 2002-11-11 00:00:00 Completed [facility] Polio (IPV/OPV) 2002-11-11 00:00:00 Completed [facility] Varicella (varivax)(chicken pox) 2002-11-11 00:00:00 [facility] DTAP 2002-11-11 00:00:00 [facility] Hep B, Adol or Pedi Dosage 2002-11-11 00:00:00 [facility]pleted [facility] HIB 4 Dose Schedule 2002-11-11 00:00:00 Completed [facility] Polio (IPV/OPV) 2002-11-11 00:00:00 [facility]pleted [facility] MMR 2002-11-11 00:00:00 Completed [facility] Varicella (varivax)(chicken pox) 2002-11-11 00:00:00 [facility] DTAP 2002-11-11 00:00:00 Completed [facility] HIB 4 Dose Schedule 2002-11-11 00:00:00 [facility]pleted [facility] Hep B, Adol or Pedi Dosage 2002-11-11 00:00:00 [facility]pleted [facility] MMR 2002-11-11 00:00:00 [facility]pleted [facility] Polio (IPV/OPV) 2002-11-11 00:00:00 Completed [facility] Varicella (varivax)(chicken pox) 2002-11-11 00:00:00 [facility] DTAP 2002-11-11 00:00:00 [facility] Hep B, Adol or Pedi Dosage 2002-11-11 00:00:00 Completed [facility] HIB 4 Dose Schedule 2002-11-11 00:00:00 Completed [facility] Polio (IPV/OPV) 2002-11-11 00:00:00 [facility] MMR 2002-11-11 00:00:00 [facility]pleted [facility] Varicella (varivax)(chicken pox) 2002-11-11 00:00:00 [facility]pleted [facility] DTaP, Unspecified Formulation 2002-11-11 00:00:00 [facility] IPV 2002-11-11 00:00:00 [facility] DTAP 2002-11-11 00:00:00 [facility]pleted [facility] HIB 4 Dose Schedule 2002-11-11 00:00:00 [facility]pleted [facility] DTaP, Unspecified Formulation 2002-11-11 00:00:00 [facility] IPV 2002-11-11 00:00:00 [facility]pleted [facility] Hep B, Adol or Pedi Dosage 2002-11-11 00:00:00 [facility]pleted [facility] MMR 2002-11-11 00:00:00 Completed [facility] Polio (IPV/OPV) 2002-11-11 00:00:00 Completed [facility] DTaP, Unspecified Formulation 2002-11-11 00:00:00 Completed [facility] Varicella (varivax)(chicken pox) 2002-11-11 00:00:00 [facility]pleted [facility] IPV 2002-11-11 00:00:00 [facility] DTAP 2002-11-11 00:00:00 [facility] Hep B, Adol or Pedi Dosage 2002-11-11 00:00:00 Completed [facility] DTaP, Unspecified Formulation 2002-11-11 00:00:00 Completed [facility] HIB 4 Dose Schedule 2002-11-11 00:00:00 [facility]pleted [facility] IPV 2002-11-11 00:00:00 Completed [facility] Polio (IPV/OPV) 2002-11-11 00:00:00 [facility] MMR 2002-11-11 00:00:00 [facility]pleted [facility] DTaP, Unspecified Formulation 2002-11-11 00:00:00 Completed [facility] Varicella (varivax)(chicken pox) 2002-11-11 00:00:00 [facility]pleted [facility] IPV 2002-11-11 00:00:00 Completed [facility] DTaP, Unspecified Formulation 2002-11-11 00:00:00 [facility] IPV 2002-11-11 00:00:00 [facility]pleted [facility] DTaP, Unspecified Formulation 2002-11-11 00:00:00 [facility] IPV 2002-11-11 00:00:00 [facility] DTAP 2002-11-11 00:00:00 [facility] HIB 4 Dose Schedule 2002-11-11 00:00:00 Completed [facility] DTaP, Unspecified Formulation 2002-11-11 00:00:00 [facility]pleted [facility] Hep B, Adol or Pedi Dosage 2002-11-11 00:00:00 [facility]pleted [facility] IPV 2002-11-11 00:00:00 [facility] MMR 2002-11-11 00:00:00 Completed [facility] Polio (IPV/OPV) 2002-11-11 00:00:00 [facility]pleted [facility] DTaP, Unspecified Formulation 2002-11-11 00:00:00 Completed [facility] Varicella (varivax)(chicken pox) 2002-11-11 00:00:00 [facility]pleted [facility] IPV 2002-11-11 00:00:00 [facility] DTAP 2002-11-11 00:00:00 [facility] Hep B, Adol or Pedi Dosage 2002-11-11 00:00:00 Completed [facility] DTaP, Unspecified Formulation 2002-11-11 00:00:00 Completed [facility] HIB 4 Dose Schedule 2002-11-11 00:00:00 [facility]pleted [facility] IPV 2002-11-11 00:00:00 Completed [facility] Polio (IPV/OPV) 2002-11-11 00:00:00 [facility]pleted [facility] MMR 2002-11-11 00:00:00 Completed [facility] Varicella (varivax)(chicken pox) 2002-11-11 00:00:00 Completed [facility] DTaP, Unspecified Formulation 2002-11-11 00:00:00 [facility]pleted [facility] IPV 2002-11-11 00:00:00 [facility]pleted [facility] DTaP, Unspecified Formulation 2002-11-11 00:00:00 [facility]pleted [facility] IPV 2002-11-11 00:00:00 [facility]pleted [facility] DTaP, Unspecified Formulation 2002-11-11 00:00:00 [facility]pleted [facility] DTAP 2002-11-11 00:00:00 [facility] IPV 2002-11-11 00:00:00 [facility]pleted [facility] Poliovirus, Live, Oral, Trivalent 1999-05-14 00:00:00 Completed [facility] DTaP, Unspecified Formulation 1999-05-14 00:00:00 [facility]pleted [facility] HIB 4 Dose Schedule 1999-05-14 00:00:00 Completed [facility] Poliovirus, Live, Oral, Trivalent 1999-05-14 00:00:00 Completed [facility] DTaP, Unspecified Formulation 1999-05-14 00:00:00 [facility]pleted [facility] HIB 4 Dose Schedule 1999-05-14 00:00:00 Completed [facility] Poliovirus, Live, Oral, Trivalent 1999-05-14 00:00:00 [facility]pleted [facility] DTaP, Unspecified Formulation 1999-05-14 00:00:00 [facility]pleted [facility] HIB 4 Dose Schedule 1999-05-14 00:00:00 [facility]pleted [facility] Poliovirus, Live, Oral, Trivalent 1999-05-14 00:00:00 [facility]pleted [facility] DTaP, Unspecified Formulation 1999-05-14 00:00:00 Completed [facility] HIB 4 Dose Schedule 1999-05-14 00:00:00 Completed [facility] Poliovirus, Live, Oral, Trivalent 1999-05-14 00:00:00 Completed [facility] DTaP, Unspecified Formulation 1999-05-14 00:00:00 [facility]pleted [facility] HIB 4 Dose Schedule 1999-05-14 00:00:00 Completed [facility] Poliovirus, Live, Oral, Trivalent 1999-05-14 00:00:00 [facility]pleted [facility] DTaP, Unspecified Formulation 1999-05-14 00:00:00 [facility]pleted [facility] HIB 4 Dose Schedule 1999-05-14 00:00:00 Completed [facility] Poliovirus, Live, Oral, Trivalent 1999-05-14 00:00:00 [facility]pleted [facility] DTaP, Unspecified Formulation 1999-05-14 00:00:00 [facility]pleted [facility] HIB 4 Dose Schedule 1999-05-14 00:00:00 Completed [facility] Poliovirus, Live, Oral, Trivalent 1999-05-14 00:00:00 [facility]pleted [facility] DTaP, Unspecified Formulation 1999-05-14 00:00:00 [facility]pleted [facility] HIB 4 Dose Schedule 1999-05-14 00:00:00 Completed [facility] Poliovirus, Live, Oral, Trivalent 1999-05-14 00:00:00 [facility]pleted [facility] DTaP, Unspecified Formulation 1999-05-14 00:00:00 [facility]pleted [facility] HIB 4 Dose Schedule 1999-05-14 00:00:00 [facility]pleted [facility] Poliovirus, Live, Oral, Trivalent 1999-05-14 00:00:00 Completed [facility] DTaP, Unspecified Formulation 1999-05-14 00:00:00 [facility]pleted [facility] HIB 4 Dose Schedule 1999-05-14 00:00:00 Completed [facility] Poliovirus, Live, Oral, Trivalent 1999-05-14 00:00:00 [facility]pleted [facility] DTaP, Unspecified Formulation 1999-05-14 00:00:00 [facility]pleted [facility] HIB 4 Dose Schedule 1999-05-14 00:00:00 Completed [facility] Poliovirus, Live, Oral, Trivalent 1999-05-14 00:00:00 Completed [facility] DTaP, Unspecified Formulation 1999-05-14 00:00:00 [facility]pleted [facility] HIB 4 Dose Schedule 1999-05-14 00:00:00 Completed [facility] Poliovirus, Live, Oral, Trivalent 1999-05-14 00:00:00 [facility]pleted [facility] DTaP, Unspecified Formulation 1999-05-14 00:00:00 [facility]pleted [facility] HIB 4 Dose Schedule 1999-05-14 00:00:00 Completed [facility] Poliovirus, Live, Oral, Trivalent 1999-05-14 00:00:00 [facility]pleted [facility] DTaP, Unspecified Formulation 1999-05-14 00:00:00 [facility]pleted [facility] HIB 4 Dose Schedule 1999-05-14 00:00:00 Completed [facility] Poliovirus, Live, Oral, Trivalent 1999-05-14 00:00:00 [facility]pleted [facility] DTaP, Unspecified Formulation 1999-05-14 00:00:00 [facility]pleted [facility] HIB 4 Dose Schedule 1999-05-14 00:00:00 Completed [facility] Poliovirus, Live, Oral, Trivalent 1999-05-14 00:00:00 [facility]pleted [facility] DTaP, Unspecified Formulation 1999-05-14 00:00:00 [facility]pleted [facility] HIB 4 Dose Schedule 1999-05-14 00:00:00 Completed [facility] Poliovirus, Live, Oral, Trivalent 1999-05-14 00:00:00 [facility]pleted [facility] DTaP, Unspecified Formulation 1999-05-14 00:00:00 [facility]pleted [facility] HIB 4 Dose Schedule 1999-05-14 00:00:00 [facility]pleted [facility] Poliovirus, Live, Oral, Trivalent 1999-05-14 00:00:00 [facility]pleted [facility] DTaP, Unspecified Formulation 1999-05-14 00:00:00 [facility]pleted [facility] HIB 4 Dose Schedule 1999-05-14 00:00:00 [facility]pleted [facility] Poliovirus, Live, Oral, Trivalent 1999-05-14 00:00:00 [facility]pleted [facility] DTaP, Unspecified Formulation 1999-05-14 00:00:00 [facility]pleted [facility] HIB 4 Dose Schedule 1999-05-14 00:00:00 Completed [facility] Poliovirus, Live, Oral, Trivalent 1999-05-14 00:00:00 [facility]pleted [facility] DTaP, Unspecified Formulation 1999-05-14 00:00:00 [facility]pleted [facility] HIB 4 Dose Schedule 1999-05-14 00:00:00 Completed [facility] Poliovirus, Live, Oral, Trivalent 1999-05-14 00:00:00 [facility]pleted [facility] DTaP, Unspecified Formulation 1999-05-14 00:00:00 [facility]pleted [facility] HIB 4 Dose Schedule 1999-05-14 00:00:00 [facility]pleted [facility] Poliovirus, Live, Oral, Trivalent 1999-01-26 00:00:00 [facility]pleted [facility] DTaP, Unspecified Formulation 1999-01-26 00:00:00 [facility]pleted [facility] Hep B, Adol or Pedi Dosage 1999-01-26 00:00:00 [facility]pleted [facility] HIB 4 Dose Schedule 1999-01-26 00:00:00 [facility]pleted [facility] Poliovirus, Live, Oral, Trivalent 1999-01-26 00:00:00 [facility]pleted [facility] DTaP, Unspecified Formulation 1999-01-26 00:00:00 [facility] Hep B, Adol or Pedi Dosage 1999-01-26 00:00:00 [facility]pleted [facility] HIB 4 Dose Schedule 1999-01-26 00:00:00 [facility]pleted [facility] Poliovirus, Live, Oral, Trivalent 1999-01-26 00:00:00 [facility]pleted [facility] DTaP, Unspecified Formulation 1999-01-26 00:00:00 [facility] Hep B, Adol or Pedi Dosage 1999-01-26 00:00:00 [facility]pleted [facility] HIB 4 Dose Schedule 1999-01-26 00:00:00 [facility]pleted [facility] Poliovirus, Live, Oral, Trivalent 1999-01-26 00:00:00 [facility]pleted [facility] DTaP, Unspecified Formulation 1999-01-26 00:00:00 [facility] Hep B, Adol or Pedi Dosage 1999-01-26 00:00:00 [facility]pleted [facility] HIB 4 Dose Schedule 1999-01-26 00:00:00 [facility]pleted [facility] Poliovirus, Live, Oral, Trivalent 1999-01-26 00:00:00 [facility]pleted [facility] DTaP, Unspecified Formulation 1999-01-26 00:00:00 [facility] Hep B, Adol or Pedi Dosage 1999-01-26 00:00:00 [facility]pleted [facility] HIB 4 Dose Schedule 1999-01-26 00:00:00 [facility]pleted [facility] Poliovirus, Live, Oral, Trivalent 1999-01-26 00:00:00 [facility]pleted [facility] DTaP, Unspecified Formulation 1999-01-26 00:00:00 [facility] Hep B, Adol or Pedi Dosage 1999-01-26 00:00:00 [facility]pleted [facility] HIB 4 Dose Schedule 1999-01-26 00:00:00 [facility]pleted [facility] Poliovirus, Live, Oral, Trivalent 1999-01-26 00:00:00 [facility]pleted [facility] DTaP, Unspecified Formulation 1999-01-26 00:00:00 [facility] Hep B, Adol or Pedi Dosage 1999-01-26 00:00:00 [facility]pleted [facility] HIB 4 Dose Schedule 1999-01-26 00:00:00 [facility]pleted [facility] Poliovirus, Live, Oral, Trivalent 1999-01-26 00:00:00 [facility]pleted [facility] DTaP, Unspecified Formulation 1999-01-26 00:00:00 [facility] Hep B, Adol or Pedi Dosage 1999-01-26 00:00:00 [facility]pleted [facility] HIB 4 Dose Schedule 1999-01-26 00:00:00 [facility]pleted [facility] Poliovirus, Live, Oral, Trivalent 1999-01-26 00:00:00 [facility]pleted [facility] DTaP, Unspecified Formulation 1999-01-26 00:00:00 [facility] Hep B, Adol or Pedi Dosage 1999-01-26 00:00:00 [facility]pleted [facility] HIB 4 Dose Schedule 1999-01-26 00:00:00 Completed [facility] Poliovirus, Live, Oral, Trivalent 1999-01-26 00:00:00 [facility]pleted [facility] DTaP, Unspecified Formulation 1999-01-26 00:00:00 [facility] Hep B, Adol or Pedi Dosage 1999-01-26 00:00:00 [facility]pleted [facility] HIB 4 Dose Schedule 1999-01-26 00:00:00 Completed [facility] Poliovirus, Live, Oral, Trivalent 1999-01-26 00:00:00 [facility]pleted [facility] DTaP, Unspecified Formulation 1999-01-26 00:00:00 [facility]pleted [facility] Hep B, Adol or Pedi Dosage 1999-01-26 00:00:00 [facility]pleted [facility] HIB 4 Dose Schedule 1999-01-26 00:00:00 Completed [facility] Poliovirus, Live, Oral, Trivalent 1999-01-26 00:00:00 [facility]pleted [facility] DTaP, Unspecified Formulation 1999-01-26 00:00:00 [facility]pleted [facility] Hep B, Adol or Pedi Dosage 1999-01-26 00:00:00 [facility]pleted [facility] HIB 4 Dose Schedule 1999-01-26 00:00:00 [facility]pleted [facility] Poliovirus, Live, Oral, Trivalent 1999-01-26 00:00:00 [facility]pleted [facility] DTaP, Unspecified Formulation 1999-01-26 00:00:00 [facility] Hep B, Adol or Pedi Dosage 1999-01-26 00:00:00 [facility]pleted [facility] HIB 4 Dose Schedule 1999-01-26 00:00:00 Completed [facility] Poliovirus, Live, Oral, Trivalent 1999-01-26 00:00:00 Completed [facility] DTaP, Unspecified Formulation 1999-01-26 00:00:00 [facility] Hep B, Adol or Pedi Dosage 1999-01-26 00:00:00 [facility] HIB 4 Dose Schedule 1999-01-26 00:00:00 [facility] Poliovirus, Live, Oral, Trivalent 1999-01-26 00:00:00 Completed [facility] [facility] Un[facility] Formulation 1999-01-26 00:00:00 [facility] Hep B, Adol or Pedi Dosage 1999-01-26 00:00:00 [facility] HIB 4 Dose Schedule 1999-01-26 00:00:00 [facility] Poliovirus, Live, Oral, Trivalent 1999-01-26 00:00:00 [facility] DTaP, Unspecified Formulation 1999-01-26 00:00:00 [facility] Hep B, Adol or Pedi Dosage 1999-01-26 00:00:00 [facility] HIB 4 Dose Schedule 1999-01-26 00:00:00 [facility] Poliovirus, Live, Oral, Trivalent 1999-01-26 00:00:00 [facility] DTaP, Unspecified Formulation 1999-01-26 00:00:00 [facility] Hep B, Adol or Pedi Dosage 1999-01-26 00:00:00 [facility] HIB 4 Dose Schedule 1999-01-26 00:00:00 [facility] Poliovirus, Live, Oral, Trivalent 1999-01-26 00:00:00 [facility] DTaP, Unspecified Formulation 1999-01-26 00:00:00 [facility] Hep B, Adol or Pedi Dosage 1999-01-26 00:00:00 [facility] HIB 4 Dose Schedule 1999-01-26 00:00:00 [facility] Poliovirus, Live, Oral, Trivalent 1999-01-26 00:00:00 [facility] DTaP, Unspecified Formulation 1999-01-26 00:00:00 [facility] Hep B, Adol or Pedi Dosage 1999-01-26 00:00:00 [facility] HIB 4 Dose Schedule 1999-01-26 00:00:00 [facility] Poliovirus, Live, Oral, Trivalent 1999-01-26 00:00:00 [facility] DTaP, Unspecified Formulation 1999-01-26 00:00:00 [facility] Hep B, Adol or Pedi Dosage 1999-01-26 00:00:00 [facility] HIB 4 Dose Schedule 1999-01-26 00:00:00 [facility] Poliovirus, Live, Oral, Trivalent 1999-01-26 00:00:00 [facility] DTaP, Unspecified Formulation 1999-01-26 00:00:00 [facility] Hep B, Adol or Pedi Dosage 1999-01-26 00:00:00 [facility] HIB 4 Dose Schedule 1999-01-26 00:00:00 [facility] Hep B, Adol or Pedi Dosage 1998 00:00:00 [facility] Hep B, Adol or Pedi Dosage 1998 00:00:00 [facility] Hep B, Adol or Pedi Dosage 1998 00:00:00 [facility] Hep B, Adol or Pedi Dosage 1998 00:00:00 [facility] Hep B, Adol or Pedi Dosage 1998 00:00:00 [facility] Hep B, Adol or Pedi Dosage 1998 00:00:00 [facility] Hep B, Adol or Pedi Dosage 1998 00:00:00 [facility] Hep B, Adol or Pedi Dosage 1998 00:00:00 [facility] Hep B, Adol or Pedi Dosage 1998 00:00:00 [facility] Hep B, Adol or Pedi Dosage 1998 00:00:00 [facility] Hep B, Adol or Pedi Dosage 1998 00:00:00 [facility] Hep B, Adol or Pedi Dosage 1998 00:00:00 [facility] Hep B, Adol or Pedi Dosage 1998 00:00:00 [facility] Hep B, Adol or Pedi Dosage 1998 00:00:00 [facility] Hep B, Adol or Pedi Dosage 1998 00:00:00 [facility] Hep B, Adol or Pedi Dosage 1998 00:00:00 [facility] Hep B, Adol or Pedi Dosage 1998 00:00:00 [facility] Hep B, Adol or Pedi Dosage 1998 00:00:00 [facility] Hep B, Adol or Pedi Dosage 1998 00:00:00 [facility] Hep B, Adol or Pedi Dosage 1998 00:00:00 [facility] Hep B, Adol or Pedi Dosage 1998 00:00:00 [facility] HPV Unknown [facility] Meningococcal Polysaccharide (groups A, C, Y and W-135) conjugate vaccine (MCV4P) Unknown [facility] TD[facility] (ADACEL) VACCINE Unknown [facility] Influenza Virus Vaccine Quad .5 mL IM 6+ MO (FLUZONE/FLULAVAL/FL UARIX) Unknown [facility] TDAP (ADACEL) VACCINE Unknown [facility] TDAP (ADACEL) VACCINE Unknown [facility] Influenza Virus Vaccine Quad .5 mL IM 6+ MO (FLUZONE/FLULAVAL/FL UARIX) Unknown [facility] HPV Unknown [facility] Meningococcal Polysaccharide (groups A, C, Y and W-135) conjugate vaccine (MCV4P) Unknown [facility] Varicella (varivax)(chicken pox) Unknown [facility] SARS-COV-2 COVID-19 VACCINE - (MODERNA) Unknown Completed [facility] SARS-COV-2 COVID-19 VACCINE - (MODERNA) Unknown Completed [facility] DTaP, Unspecified Formulation Unknown [facility] DTaP, Unspecified Formulation Unknown [facility] DTaP, Unspecified Formulation Unknown Com[facility] DTaP, Unspecified Formulation Unknown [facility] HEPATITIS A Unknown Completed [facility] Hep B, Adol or Pedi Dosage Unknown [facility] Hep B, Adol or Pedi Dosage Unknown [facility] HIB 4 Dose Schedule Unknown [facility] HIB 4 Dose Schedule Unknown [facility] MMR Unknown [facility] IPV Unknown [facility] IPV Unknown [facility] Poliovirus, Live, Oral, Trivalent Unknown [facility] Poliovirus, Live, Oral, Trivalent Unknown [facility] Tetanus/Diptheria Unknown Completed [facility] HPV Unknown [facility] Meningococcal Polysaccharide (groups A, C, Y and W-135) conjugate vaccine (MCV4P) Unknown [facility] TDAP (ADACEL) VACCINE Unknown [facility] Influenza Virus Vaccine Quad .5 mL IM 6+ MO (FLUZONE/FLULAVAL/FL UARIX) Unknown [facility] TDAP (ADACEL) VACCINE Unknown [facility] TDAP (ADACEL) VACCINE Unknown [facility] Influenza Virus Vaccine Quad .5 mL IM 6+ MO (FLUZONE/FLULAVAL/FL UARIX) Unknown [facility] HPV Unknown [facility] Meningococcal Polysaccharide (groups A, C, Y and W-135) conjugate vaccine (MCV4P) Unknown [facility] Varicella (varivax)(chicken pox) Unknown [facility] SARS-COV-2 COVID-19 VACCINE - (MODERNA) Unknown Completed [facility] SARS-COV-2 COVID-19 VACCINE - (MODERNA) Unknown Completed [facility] DTaP, Unspecified Formulation Unknown [facility] DTaP, Unspecified Formulation Unknown [facility] DTaP, Unspecified Formulation Unknown [facility] DTaP, Unspecified Formulation Unknown [facility] HEPATITIS A Unknown Completed [facility] Hep B, Adol or Pedi Dosage Unknown [facility] Hep B, Adol or Pedi Dosage Unknown Com[facility] HIB 4 Dose Schedule Unknown [facility] HIB 4 Dose Schedule Unknown [facility] MMR Unknown [facility] IPV Unknown [facility] IPV Unknown [facility] Poliovirus, Live, Oral, Trivalent Unknown [facility] Poliovirus, Live, Oral, Trivalent Unknown [facility] Tetanus/Diptheria Unknown Completed [facility] HPV Unknown [facility] Meningococcal Polysaccharide (groups A, C, Y and W-135) conjugate vaccine (MCV4P) Unknown [facility] TDAP (ADACEL) VACCINE Unknown [facility] Influenza Virus Vaccine Quad .5 mL IM 6+ MO (FLUZONE/FLULAVAL/FL UARIX) Unknown Com[facility] TDAP (ADACEL) VACCINE Unknown [facility] TDAP (ADACEL) VACCINE Unknown Com[facility] Influenza Virus Vaccine Quad .5 mL IM 6+ MO (FLUZONE/FLULAVAL/FL UARIX) Unknown [facility] HPV Unknown [facility] Meningococcal Polysaccharide (groups A, C, Y and W-135) conjugate vaccine (MCV4P) Unknown [facility] Varicella (varivax)(chicken pox) Unknown [facility] SARS-COV-2 COVID-19 VACCINE - (MODERNA) Unknown Completed [facility] SARS-COV-2 COVID-19 VACCINE - (MODERNA) Unknown Completed [facility] DTaP, Unspecified Formulation Unknown [facility] DTaP, Unspecified Formulation Unknown Com[facility] DTaP, Unspecified Formulation Unknown Com[facility] DTaP, Unspecified Formulation Unknown [facility] HEPATITIS A Unknown Completed [facility] Hep B, Adol or Pedi Dosage Unknown [facility] Hep B, Adol or Pedi Dosage Unknown [facility] HIB 4 Dose Schedule Unknown [facility] HIB 4 Dose Schedule Unknown [facility] MMR Unknown [facility] IPV Unknown [facility] IPV Unknown [facility] Poliovirus, Live, Oral, Trivalent Unknown [facility] Poliovirus, Live, Oral, Trivalent Unknown [facility] Tetanus/Diptheria Unknown [facility] Meningococcal Polysaccharide (groups A, C, Y and W-135) conjugate vaccine (MCV4P) Unknown [facility] TDAP (ADACEL) VACCINE Unknown [facility] Influenza Virus Vaccine Quad .5 mL IM 6+ MO (FLUZONE/FLULAVAL/FL UARIX) Unknown [facility] TDAP (ADACEL) VACCINE Unknown [facility] TDAP (ADACEL) VACCINE Unknown [facility] Influenza Virus Vaccine Quad .5 mL IM 6+ MO (FLUZONE/FLULAVAL/FL UARIX) Unknown [facility] HPV Unknown [facility] Meningococcal Polysaccharide (groups A, C, Y and W-135) conjugate vaccine (MCV4P) Unknown [facility] Varicella (varivax)(chicken pox) Unknown [facility] SARS-COV-2 COVID-19 VACCINE - (MODERNA) Unknown Completed [facility] SARS-COV-2 COVID-19 VACCINE - (MODERNA) Unknown Completed [facility] DTaP, Unspecified Formulation Unknown [facility] DTaP, Unspecified Formulation Unknown Com[facility] DTaP, Unspecified Formulation Unknown Com[facility] DTaP, Unspecified Formulation Unknown [facility] HEPATITIS A Unknown Completed [facility] Hep B, Adol or Pedi Dosage Unknown [facility] Hep B, Adol or Pedi Dosage Unknown [facility] HIB 4 Dose Schedule Unknown [facility] HIB 4 Dose Schedule Unknown [facility] MMR Unknown [facility] IPV Unknown [facility] IPV Unknown [facility] Poliovirus, Live, Oral, Trivalent Unknown [facility] Poliovirus, Live, Oral, Trivalent Unknown [facility] Tetanus/Diptheria Unknown Completed [facility] HPV Unknown [facility] Meningococcal Polysaccharide (groups A, C, Y and W-135) conjugate vaccine (MCV4P) Unknown [facility] TDAP (ADACEL) VACCINE Unknown [facility] Influenza Virus Vaccine Quad .5 mL IM 6+ MO (FLUZONE/FLULAVAL/FL UARIX) Unknown Com[facility] TDAP (ADACEL) VACCINE Unknown [facility] TDAP (ADACEL) VACCINE Unknown Com[facility] Influenza Virus Vaccine Quad .5 mL IM 6+ MO (FLUZONE/FLULAVAL/FL UARIX) Unknown [facility] HPV Unknown [facility] Meningococcal Polysaccharide (groups A, C, Y and W-135) conjugate vaccine (MCV4P) Unknown [facility] Varicella (varivax)(chicken pox) Unknown [facility] SARS-COV-2 COVID-19 VACCINE - (MODERNA) Unknown Completed [facility] DTaP, Unspecified Formulation Unknown [facility] DTaP, Unspecified Formulation Unknown [facility] DTaP, Unspecified Formulation Unknown Com[facility] DTaP, Unspecified Formulation Unknown [facility] HEPATITIS A Unknown Completed [facility] Hep B, Adol or Pedi Dosage Unknown [facility] Hep B, Adol or Pedi Dosage Unknown Com[facility] HIB 4 Dose Schedule Unknown [facility] HIB 4 Dose Schedule Unknown [facility] MMR Unknown [facility] IPV Unknown [facility] IPV Unknown [facility] Poliovirus, Live, Oral, Trivalent Unknown [facility] Poliovirus, Live, Oral, Trivalent Unknown [facility] Tetanus/Diptheria Unknown Completed [facility] HPV Unknown [facility] Meningococcal Polysaccharide (groups A, C, Y and W-135) conjugate vaccine (MCV4P) Unknown [facility] TDAP (ADACEL) VACCINE Unknown [facility] Influenza Virus Vaccine Quad .5 mL IM 6+ MO (FLUZONE/FLULAVAL/FL UARIX) Unknown Com[facility] TDAP (ADACEL) VACCINE Unknown [facility] TDAP (ADACEL) VACCINE Unknown Com[facility] Influenza Virus Vaccine Quad .5 mL IM 6+ MO (FLUZONE/FLULAVAL/FL UARIX) Unknown [facility] HPV Unknown [facility] Meningococcal Polysaccharide (groups A, C, Y and W-135) conjugate vaccine (MCV4P) Unknown [facility] Varicella (varivax)(chicken pox) Unknown [facility] SARS-COV-2 COVID-19 VACCINE - (MODERNA) Unknown Completed [facility] SARS-COV-2 COVID-19 VACCINE - (MODERNA) Unknown Completed [facility] DTaP, Unspecified Formulation Unknown [facility] DTaP, Unspecified Formulation Unknown Com[facility] DTaP, Unspecified Formulation Unknown Completed [facility] DTaP, Unspecified Formulation Unknown Com[facility] HEPATITIS A Unknown Completed [facility] Hep B, Adol or Pedi Dosage Unknown [facility] Hep B, Adol or Pedi Dosage Unknown Com[facility] HIB 4 Dose Schedule Unknown [facility] HIB 4 Dose Schedule Unknown [facility] MMR Unknown [facility] IPV Unknown [facility] IPV Unknown [facility] Poliovirus, Live, Oral, Trivalent Unknown [facility] Poliovirus, Live, Oral, Trivalent Unknown [facility] Tetanus/Diptheria Unknown Completed [facility] HPV Unknown [facility] Meningococcal Polysaccharide (groups A, C, Y and W-135) conjugate vaccine (MCV4P) Unknown [facility] TDAP (ADACEL) VACCINE Unknown [facility] Influenza Virus Vaccine Quad .5 mL IM 6+ MO (FLUZONE/FLULAVAL/FL UARIX) Unknown [facility] TDAP (ADACEL) VACCINE Unknown [facility] TDAP (ADACEL) VACCINE Unknown Com[facility] Influenza Virus Vaccine Quad .5 mL IM 6+ MO (FLUZONE/FLULAVAL/FL UARIX) Unknown [facility] HPV Unknown [facility] Meningococcal Polysaccharide (groups A, C, Y and W-135) conjugate vaccine (MCV4P) Unknown [facility] Varicella (varivax)(chicken pox) Unknown [facility] SARS-COV-2 COVID-19 VACCINE - (MODERNA) Unknown Completed [facility] SARS-COV-2 COVID-19 VACCINE - (MODERNA) Unknown Completed [facility] DTaP, Unspecified Formulation Unknown [facility] DTaP, Unspecified Formulation Unknown Com[facility] DTaP, Unspecified Formulation Unknown Completed [facility] DTaP, Unspecified Formulation Unknown Com[facility] HEPATITIS A Unknown Completed [facility] Hep B, Adol or Pedi Dosage Unknown [facility] Hep B, Adol or Pedi Dosage Unknown Com[facility] HIB 4 Dose Schedule Unknown [facility] HIB 4 Dose Schedule Unknown [facility] MMR Unknown [facility] IPV Unknown [facility] IPV Unknown [facility] Poliovirus, Live, Oral, Trivalent Unknown [facility] Poliovirus, Live, Oral, Trivalent Unknown [facility] Tetanus/Diptheria Unknown Completed [facility] HPV Unknown [facility] Meningococcal Polysaccharide (groups A, C, Y and W-135) conjugate vaccine (MCV4P) Unknown [facility] TDAP (ADACEL) VACCINE Unknown [facility] Influenza Virus Vaccine Quad .5 mL IM 6+ MO (FLUZONE/FLULAVAL/FL UARIX) Unknown Com[facility] TDAP (ADACEL) VACCINE Unknown [facility] TDAP (ADACEL) VACCINE Unknown Com[facility] Influenza Virus Vaccine Quad .5 mL IM 6+ MO (FLUZONE/FLULAVAL/FL UARIX) Unknown [facility] HPV Unknown [facility] Meningococcal Polysaccharide (groups A, C, Y and W-135) conjugate vaccine (MCV4P) Unknown [facility] Varicella (varivax)(chicken pox) Unknown [facility] SARS-COV-2 COVID-19 VACCINE - (MODERNA) Unknown Completed [facility] SARS-COV-2 COVID-19 VACCINE - (MODERNA) Unknown Completed [facility] DTaP, Unspecified Formulation Unknown [facility] DTaP, Unspecified Formulation Unknown Com[facility] DTaP, Unspecified Formulation Unknown Com[facility] DTaP, Unspecified Formulation Unknown [facility] HEPATITIS A Unknown Completed [facility] Hep B, Adol or Pedi Dosage Unknown [facility] Hep B, Adol or Pedi Dosage Unknown Com[facility] HIB 4 Dose Schedule Unknown [facility] HIB 4 Dose Schedule Unknown [facility] MMR Unknown [facility] IPV Unknown [facility] IPV Unknown [facility] Poliovirus, Live, Oral, Trivalent Unknown [facility] Poliovirus, Live, Oral, Trivalent Unknown [facility] Tetanus/Diptheria Unknown Completed [facility] HPV Unknown [facility] Meningococcal Polysaccharide (groups A, C, Y and W-135) conjugate vaccine (MCV4P) Unknown [facility] TDAP (ADACEL) VACCINE Unknown [facility] Influenza Virus Vaccine Quad .5 mL IM 6+ MO (FLUZONE/FLULAVAL/FL UARIX) Unknown [facility] TDAP (ADACEL) VACCINE Unknown [facility] TDAP (ADACEL) VACCINE Unknown Com[facility] Influenza Virus Vaccine Quad .5 mL IM 6+ MO (FLUZONE/FLULAVAL/FL UARIX) Unknown [facility] HPV Unknown [facility] Meningococcal Polysaccharide (groups A, C, Y and W-135) conjugate vaccine (MCV4P) Unknown [facility] Varicella (varivax)(chicken pox) Unknown [facility] SARS-COV-2 COVID-19 VACCINE - (MODERNA) Unknown Completed [facility] SARS-COV-2 COVID-19 VACCINE - (MODERNA) Unknown Completed [facility] DTaP, Unspecified Formulation Unknown [facility] DTaP, Unspecified Formulation Unknown [facility] DTaP, Unspecified Formulation Unknown Com[facility] DTaP, Unspecified Formulation Unknown [facility] HEPATITIS A Unknown Completed [facility] Hep B, Adol or Pedi Dosage Unknown [facility] Hep B, Adol or Pedi Dosage Unknown [facility] HIB 4 Dose Schedule Unknown [facility] HIB 4 Dose Schedule Unknown [facility] MMR Unknown [facility] IPV Unknown [facility] IPV Unknown [facility] Poliovirus, Live, Oral, Trivalent Unknown [facility] Poliovirus, Live, Oral, Trivalent Unknown [facility]heria [facility] Influenza Virus Vaccine Quad IM, Preserv and ABX Free 6 MO-64 YRS (FLUCELVAX) Unknown [facility] HPV Unknown [facility] Meningococcal Polysaccharide (groups A, C, Y and W-135) conjugate vaccine (MCV4P) Unknown [facility] TDAP (ADACEL) VACCINE Unknown [facility] Influenza Virus Vaccine Quad .5 mL IM 6+ MO (FLUZONE/FLULAVAL/FL UARIX) Unknown Com[facility] TDAP (ADACEL) VACCINE Unknown [facility] TDAP (ADACEL) VACCINE Unknown Com[facility] Influenza Virus Vaccine Quad .5 mL IM 6+ MO (FLUZONE/FLULAVAL/FL UARIX) Unknown [facility] HPV Unknown [facility] Meningococcal Polysaccharide (groups A, C, Y and W-135) conjugate vaccine (MCV4P) Unknown [facility] Varicella (varivax)(chicken pox) Unknown [facility] SARS-COV-2 COVID-19 VACCINE - (MODERNA) Unknown Completed [facility] SARS-COV-2 COVID-19 VACCINE - (MODERNA) Unknown Completed [facility] DTaP, Unspecified Formulation Unknown [facility] DTaP, Unspecified Formulation Unknown Com[facility] DTaP, Unspecified Formulation Unknown Com[facility] DTaP, Unspecified Formulation Unknown [facility] HEPATITIS A Unknown Completed [facility] Hep B, Adol or Pedi Dosage Unknown [facility] Hep B, Adol or Pedi Dosage Unknown [facility] HIB 4 Dose Schedule Unknown [facility] HIB 4 Dose Schedule Unknown [facility] MMR Unknown [facility] IPV Unknown [facility] IPV Unknown [facility] Poliovirus, Live, Oral, Trivalent Unknown [facility] Poliovirus, Live, Oral, Trivalent Unknown [facility] Tetanus/Diptheria Unknown Completed [facility] TDAP Unknown [facility] Influenza Virus Vaccine Quad IM, Preserv and ABX Free 6 MO-64 YRS (FLUCELVAX) Unknown [facility] HPV Unknown [facility] Meningococcal Polysaccharide (groups A, C, Y and W-135) conjugate vaccine (MCV4P) Unknown [facility] (ADACEL) VACCINE Unknown [facility] Influenza Virus Vaccine Quad .5 mL IM 6+ MO (FLUZONE/FLULAVAL/FL UARIX) Unknown [facility] TDAP (ADACEL) VACCINE Unknown [facility] TDAP (ADACEL) VACCINE Unknown Completed [facility] Influenza Virus Vaccine Quad .5 mL IM 6+ MO (FLUZONE/FLULAVAL/FL UARIX) Unknown Com[facility] HPV Unknown [facility] Meningococcal Polysaccharide (groups A, C, Y and W-135) conjugate vaccine (MCV4P) Unknown [facility] Varicella (varivax)(chicken pox) Unknown Completed [facility] SARS-COV-2 COVID-19 VACCINE - (MODERNA) Unknown Completed [facility] SARS-COV-2 COVID-19 VACCINE - (MODERNA) Unknown Completed [facility] DTaP, Unspecified Formulation Unknown [facility] DTaP, Unspecified Formulation Unknown Completed [facility] DTaP, Unspecified Formulation Unknown Completed [facility] DTaP, Unspecified Formulation Unknown Completed [facility] HEPATITIS A Unknown Completed [facility] Hep B, Adol or Pedi Dosage Unknown Completed [facility] Hep B, Adol or Pedi Dosage Unknown Completed [facility] HIB 4 Dose Schedule Unknown Completed [facility] HIB 4 Dose Schedule Unknown [facility] MMR Unknown [facility] IPV Unknown [facility]pleted [facility] IPV Unknown Completed [facility] Poliovirus, Live, Oral, Trivalent Unknown [facility] Poliovirus, Live, Oral, Trivalent Unknown [facility] Tetanus/Diptheria Unknown Completed [facility] TDAP Unknown [facility] Influenza Virus Vaccine Quad IM, Preserv and ABX Free 6 MO-64 YRS (FLUCELVAX) Unknown Completed [facility] HPV Unknown [facility] Meningococcal Polysaccharide (groups A, C, Y and W-135) conjugate vaccine (MCV4P) Unknown [facility] TDAP (ADACEL) VACCINE Unknown Com[facility] Influenza Virus Vaccine Quad .5 mL IM 6+ MO (FLUZONE/FLULAVAL/FL UARIX) Unknown Completed [facility] TDAP (ADACEL) VACCINE Unknown Completed [facility] TDAP (ADACEL) VACCINE Unknown Completed [facility] Influenza Virus Vaccine Quad .5 mL IM 6+ MO (FLUZONE/FLULAVAL/FL UARIX) Unknown [facility] HPV Unknown [facility] Meningococcal Polysaccharide (groups A, C, Y and W-135) conjugate vaccine (MCV4P) Unknown [facility] Varicella (varivax)(chicken pox) Unknown Com[facility] SARS-COV-2 COVID-19 VACCINE - (MODERNA) Unknown Completed [facility] SARS-COV-2 COVID-19 VACCINE - (MODERNA) Unknown Completed [facility] DTaP, Unspecified Formulation Unknown Completed [facility] DTaP, Unspecified Formulation Unknown Completed [facility] DTaP, Unspecified Formulation Unknown Completed [facility] DTaP, Unspecified Formulation Unknown Completed [facility] HEPATITIS A Unknown Completed [facility] Hep B, Adol or Pedi Dosage Unknown Completed [facility] Hep B, Adol or Pedi Dosage Unknown Completed [facility] HIB 4 Dose Schedule Unknown Completed [facility] HIB 4 Dose Schedule Unknown [facility] MMR Unknown [facility] IPV Unknown Com[facility] IPV Unknown Completed [facility] Poliovirus, Live, Oral, Trivalent Unknown [facility] Poliovirus, Live, Oral, Trivalent Unknown [facility] Tetanus/Diptheria [facility] Influenza Virus Vaccine Quad IM, Preserv and ABX Free 6 MO-64 YRS (FLUCELVAX) Unknown Completed [facility] HPV Unknown [facility] Meningococcal Polysaccharide (groups A, C, Y and W-135) conjugate vaccine (MCV4P) Unknown [facility] TDAP (ADACEL) VACCINE Unknown Com[facility] Influenza Virus Vaccine Quad .5 mL IM 6+ MO (FLUZONE/FLULAVAL/FL UARIX) Unknown Completed [facility] TDAP (ADACEL) VACCINE Unknown Completed [facility] TDAP (ADACEL) VACCINE Unknown Completed [facility] Influenza Virus Vaccine Quad .5 mL IM 6+ MO (FLUZONE/FLULAVAL/FL UARIX) Unknown [facility] HPV Unknown [facility] Meningococcal Polysaccharide (groups A, C, Y and W-135) conjugate vaccine (MCV4P) Unknown [facility] Varicella (varivax)(chicken pox) Unknown Com[facility] SARS-COV-2 COVID-19 VACCINE - (MODERNA) Unknown Completed [facility] SARS-COV-2 COVID-19 VACCINE - (MODERNA) Unknown Completed [facility] DTaP, Unspecified Formulation Unknown [facility] DTaP, Unspecified Formulation Unknown Completed [facility] DTaP, Unspecified Formulation Unknown Completed [facility] DTaP, Unspecified Formulation Unknown Completed [facility] HEPATITIS A Unknown Completed [facility] Hep B, Adol or Pedi Dosage Unknown Completed [facility] Hep B, Adol or Pedi Dosage Unknown Completed [facility] HIB 4 Dose Schedule Unknown Completed [facility] HIB 4 Dose Schedule Unknown [facility] MMR Unknown [facility] IPV Unknown Com[facility] IPV Unknown Com[facility] Poliovirus, Live, Oral, Trivalent Unknown [facility] Poliovirus, Live, Oral, Trivalent Unknown [facility] Tetanus/Diptheria [facility] Influenza Virus Vaccine Quad IM, Preserv and ABX Free 6 MO-64 YRS (FLUCELVAX) Unknown Completed [facility] HPV Unknown [facility] Meningococcal Polysaccharide (groups A, C, Y and W-135) conjugate vaccine (MCV4P) Unknown [facility] TDAP (ADACEL) VACCINE Unknown Com[facility] Influenza Virus Vaccine Quad .5 mL IM 6+ MO (FLUZONE/FLULAVAL/FL UARIX) Unknown Completed [facility] TDAP (ADACEL) VACCINE Unknown Completed [facility] TDAP (ADACEL) VACCINE Unknown Completed [facility] Influenza Virus Vaccine Quad .5 mL IM 6+ MO (FLUZONE/FLULAVAL/FL UARIX) Unknown [facility] HPV Unknown [facility] Meningococcal Polysaccharide (groups A, C, Y and W-135) conjugate vaccine (MCV4P) Unknown [facility] Varicella (varivax)(chicken pox) Unknown Completed [facility] SARS-COV-2 COVID-19 VACCINE - (MODERNA) Unknown Completed [facility] SARS-COV-2 COVID-19 VACCINE - (MODERNA) Unknown Completed [facility] DTaP, Unspecified Formulation Unknown [facility] DTaP, Unspecified Formulation Unknown Completed [facility] DTaP, Unspecified Formulation Unknown Completed [facility] DTaP, Unspecified Formulation Unknown Completed [facility] HEPATITIS A Unknown Completed [facility] Hep B, Adol or Pedi Dosage Unknown Completed [facility] Hep B, Adol or Pedi Dosage Unknown Completed [facility] HIB 4 Dose Schedule Unknown Completed [facility] HIB 4 Dose Schedule Unknown Com[facility] MMR Unknown [facility] IPV Unknown Com[facility] IPV Unknown Completed [facility] Poliovirus, Live, Oral, Trivalent Unknown [facility] Poliovirus, Live, Oral, Trivalent Unknown [facility] Tetanus/Diptheria [facility] Influenza Virus Vaccine Quad IM, Preserv and ABX Free 6 MO-64 YRS (FLUCELVAX) Unknown Completed [facility] HPV Unknown Com[facility] Meningococcal Polysaccharide (groups A, C, Y and W-135) conjugate vaccine (MCV4P) Unknown [facility] TDAP (ADACEL) VACCINE Unknown Completed [facility] Influenza Virus Vaccine Quad .5 mL IM 6+ MO (FLUZONE/FLULAVAL/FL UARIX) Unknown Completed [facility] TDAP (ADACEL) VACCINE Unknown Completed [facility] TDAP (ADACEL) VACCINE Unknown Completed [facility] Influenza Virus Vaccine Quad .5 mL IM 6+ MO (FLUZONE/FLULAVAL/FL UARIX) Unknown [facility] HPV Unknown [facility] Meningococcal Polysaccharide (groups A, C, Y and W-135) conjugate vaccine (MCV4P) Unknown [facility] Varicella (varivax)(chicken pox) Unknown Com[facility] SARS-COV-2 COVID-19 VACCINE - (MODERNA) Unknown Completed [facility] SARS-COV-2 COVID-19 VACCINE - (MODERNA) Unknown Completed [facility] DTaP, Unspecified Formulation Unknown [facility] DTaP, Unspecified Formulation Unknown Completed [facility] DTaP, Unspecified Formulation Unknown Completed [facility] DTaP, Unspecified Formulation Unknown Completed [facility] HEPATITIS A Unknown Completed [facility] Hep B, Adol or Pedi Dosage Unknown Completed [facility] Hep B, Adol or Pedi Dosage Unknown Completed [facility] HIB 4 Dose Schedule Unknown Completed [facility] HIB 4 Dose Schedule Unknown Com[facility] MMR Unknown [facility] IPV Unknown Completed [facility] IPV Unknown Completed [facility] Poliovirus, Live, Oral, Trivalent Unknown [facility] Poliovirus, Live, Oral, Trivalent Unknown [facility]ria [facility] Influenza Virus Vaccine Quad IM, Preserv and ABX Free 6 MO-64 YRS (FLUCELVAX) Unknown [facility] HPV Unknown [facility] Meningococcal Polysaccharide (groups A, C, Y and W-135) conjugate vaccine (MCV4P) Unknown [facility] TDAP (ADACEL) VACCINE Unknown Com[facility] Influenza Virus Vaccine Quad .5 mL IM 6+ MO (FLUZONE/FLULAVAL/FL UARIX) Unknown Completed [facility] TDAP (ADACEL) VACCINE Unknown Completed [facility] TDAP (ADACEL) VACCINE Unknown Completed [facility] Influenza Virus Vaccine Quad .5 mL IM 6+ MO (FLUZONE/FLULAVAL/FL UARIX) Unknown [facility] HPV Unknown [facility] Meningococcal Polysaccharide (groups A, C, Y and W-135) conjugate vaccine (MCV4P) Unknown [facility] Varicella (varivax)(chicken pox) Unknown Com[facility] SARS-COV-2 COVID-19 VACCINE - (MODERNA) Unknown Completed [facility] SARS-COV-2 COVID-19 VACCINE - (MODERNA) Unknown Completed [facility] DTaP, Unspecified Formulation Unknown [facility] DTaP, Unspecified Formulation Unknown Completed [facility] DTaP, Unspecified Formulation Unknown Completed [facility] DTaP, Unspecified Formulation Unknown Completed [facility] HEPATITIS A Unknown Completed [facility] Hep B, Adol or Pedi Dosage Unknown Completed [facility] Hep B, Adol or Pedi Dosage Unknown Completed [facility] HIB 4 Dose Schedule Unknown Completed [facility] HIB 4 Dose Schedule Unknown [facility] MMR Unknown [facility] IPV Unknown [facility] IPV Unknown Completed [facility] Poliovirus, Live, Oral, Trivalent Unknown [facility] Poliovirus, Live, Oral, Trivalent Unknown [facility] Tetanus/Diptheria Unknown [facility] Influenza Virus Vaccine Quad IM, Preserv and ABX Free 6 MO-64 YRS (FLUCELVAX) Unknown Completed [facility] HPV Unknown [facility] Meningococcal Polysaccharide (groups A, C, Y and W-135) conjugate vaccine (MCV4P) Unknown [facility] TDAP (ADACEL) VACCINE Unknown Completed [facility] Influenza Virus Vaccine Quad .5 mL IM 6+ MO (FLUZONE/FLULAVAL/FL UARIX) Unknown Completed [facility] TDAP (ADACEL) VACCINE Unknown Completed [facility] TDAP (ADACEL) VACCINE Unknown Completed [facility] Influenza Virus Vaccine Quad .5 mL IM 6+ MO (FLUZONE/FLULAVAL/FL UARIX) Unknown [facility] HPV Unknown [facility] Meningococcal Polysaccharide (groups A, C, Y and W-135) conjugate vaccine (MCV4P) Unknown [facility] Varicella (varivax)(chicken pox) Unknown Com[facility] SARS-COV-2 COVID-19 VACCINE - (MODERNA) Unknown Completed [facility] SARS-COV-2 COVID-19 VACCINE - (MODERNA) Unknown Completed [facility] DTaP, Unspecified Formulation Unknown [facility] DTaP, Unspecified Formulation Unknown Completed [facility] DTaP, Unspecified Formulation Unknown Completed [facility] DTaP, Unspecified Formulation Unknown Completed [facility] HEPATITIS A Unknown Completed [facility] Hep B, Adol or Pedi Dosage Unknown Completed [facility] Hep B, Adol or Pedi Dosage Unknown Completed [facility] HIB 4 Dose Schedule Unknown Completed [facility] HIB 4 Dose Schedule Unknown [facility] MMR Unknown [facility] IPV Unknown [facility] IPV Unknown Completed [facility] Poliovirus, Live, Oral, Trivalent Unknown [facility] Poliovirus, Live, Oral, Trivalent Unknown [facility] Tetanus/Diptheria [facility] Influenza Virus Vaccine Quad IM, Preserv and ABX Free 6 MO-64 YRS (FLUCELVAX) Unknown Completed [facility] HPV Unknown Completed [facility] Meningococcal Polysaccharide (groups A, C, Y and W-135) conjugate vaccine (MCV4P) Unknown [facility] TDAP (ADACEL) VACCINE Unknown Completed [facility] Influenza Virus Vaccine Quad .5 mL IM 6+ MO (FLUZONE/FLULAVAL/FL UARIX) Unknown Completed [facility] TDAP (ADACEL) VACCINE Unknown Completed [facility] TDAP (ADACEL) VACCINE Unknown Completed [facility] Influenza Virus Vaccine Quad .5 mL IM 6+ MO (FLUZONE/FLULAVAL/FL UARIX) Unknown [facility] HPV Unknown [facility] Meningococcal Polysaccharide (groups A, C, Y and W-135) conjugate vaccine (MCV4P) Unknown [facility] Varicella (varivax)(chicken pox) Unknown Com[facility] SARS-COV-2 COVID-19 VACCINE - (MODERNA) Unknown Completed [facility] SARS-COV-2 COVID-19 VACCINE - (MODERNA) Unknown Completed [facility] DTaP, Unspecified Formulation Unknown [facility] DTaP, Unspecified Formulation Unknown Completed [facility] DTaP, Unspecified Formulation Unknown Completed [facility] DTaP, Unspecified Formulation Unknown Completed [facility] HEPATITIS A Unknown Completed [facility] Hep B, Adol or Pedi Dosage Unknown Completed [facility] Hep B, Adol or Pedi Dosage Unknown Completed [facility] HIB 4 Dose Schedule Unknown Completed [facility] HIB 4 Dose Schedule Unknown [facility] MMR Unknown [facility] IPV Unknown [facility] IPV Unknown Completed [facility] Poliovirus, Live, Oral, Trivalent Unknown [facility] Poliovirus, Live, Oral, Trivalent Unknown [facility] Tetanus/Diptheria Unknown [facility] Influenza Virus Vaccine Quad IM, Preserv and ABX Free 6 MO-64 YRS (FLUCELVAX) Unknown Completed [facility] HPV Unknown [facility] Meningococcal Polysaccharide (groups A, C, Y and W-135) conjugate vaccine (MCV4P) Unknown [facility] TDAP (ADACEL) VACCINE Unknown Completed [facility] Influenza Virus Vaccine Quad .5 mL IM 6+ MO (FLUZONE/FLULAVAL/FL UARIX) Unknown Completed [facility] TDAP (ADACEL) VACCINE Unknown Completed [facility] TDAP (ADACEL) VACCINE Unknown Completed [facility] Influenza Virus Vaccine Quad .5 mL IM 6+ MO (FLUZONE/FLULAVAL/FL UARIX) Unknown [facility] HPV Unknown [facility] Meningococcal Polysaccharide (groups A, C, Y and W-135) conjugate vaccine (MCV4P) Unknown [facility] Varicella (varivax)(chicken pox) Unknown Com[facility] SARS-COV-2 COVID-19 VACCINE - (MODERNA) Unknown Completed [facility] SARS-COV-2 COVID-19 VACCINE - (MODERNA) Unknown Completed [facility] DTaP, Unspecified Formulation Unknown [facility] DTaP, Unspecified Formulation Unknown Completed [facility] DTaP, Unspecified Formulation Unknown Completed [facility] DTaP, Unspecified Formulation Unknown Completed [facility] HEPATITIS A Unknown Completed [facility] Hep B, Adol or Pedi Dosage Unknown Com[facility] Hep B, Adol or Pedi Dosage Unknown Completed [facility] HIB 4 Dose Schedule Unknown [facility] HIB 4 Dose Schedule Unknown [facility] MMR Unknown [facility] IPV Unknown [facility] IPV Unknown Com[facility] Poliovirus, Live, Oral, Trivalent Unknown [facility] Poliovirus, Live, Oral, Trivalent Unknown [facility] Tetanus/Diptheria Unknown [facility] Influenza Virus Vaccine Quad IM, Preserv and ABX Free 6 MO-64 YRS (FLUCELVAX) Unknown Completed [facility] HPV Unknown [facility] Meningococcal Polysaccharide (groups A, C, Y and W-135) conjugate vaccine (MCV4P) Unknown [facility] TDAP (ADACEL) VACCINE Unknown Completed [facility] Influenza Virus Vaccine Quad .5 mL IM 6+ MO (FLUZONE/FLULAVAL/FL UARIX) Unknown Completed [facility] TDAP (ADACEL) VACCINE Unknown Completed [facility] TDAP (ADACEL) VACCINE Unknown Completed [facility] Influenza Virus Vaccine Quad .5 mL IM 6+ MO (FLUZONE/FLULAVAL/FL UARIX) Unknown [facility] HPV Unknown [facility] Meningococcal Polysaccharide (groups A, C, Y and W-135) conjugate vaccine (MCV4P) Unknown [facility] Varicella (varivax)(chicken pox) Unknown [facility] SARS-COV-2 COVID-19 VACCINE - (MODERNA) Unknown Completed [facility] SARS-COV-2 COVID-19 VACCINE - (MODERNA) Unknown Completed [facility] DTaP, Unspecified Formulation Unknown [facility] DTaP, Unspecified Formulation Unknown Completed [facility] DTaP, Unspecified Formulation Unknown Completed [facility] DTaP, Unspecified Formulation Unknown Completed [facility] HEPATITIS A Unknown Completed [facility] Hep B, Adol or Pedi Dosage Unknown Com[facility] Hep B, Adol or Pedi Dosage Unknown Completed [facility] HIB 4 Dose Schedule Unknown [facility] HIB 4 Dose Schedule Unknown [facility] MMR Unknown [facility] IPV Unknown [facility] IPV Unknown Completed [facility] Poliovirus, Live, Oral, Trivalent Unknown [facility] Poliovirus, Live, Oral, Trivalent Unknown [facility] Tetanus/Diptheria Unknown Completed [facility] TDAP Unknown Completed [facility] Influenza Virus Vaccine Quad IM, Preserv and ABX Free 6 MO-64 YRS (FLUCELVAX) Unknown Completed [facility] HPV Unknown [facility] Meningococcal Polysaccharide (groups A, C, Y and W-135) conjugate vaccine (MCV4P) Unknown [facility] TDAP (ADACEL) VACCINE Unknown Completed [facility] Influenza Virus Vaccine Quad .5 mL IM 6+ MO (FLUZONE/FLULAVAL/FL UARIX) Unknown Completed [facility] TDAP (ADACEL) VACCINE Unknown Completed [facility] TDAP (ADACEL) VACCINE Unknown Completed [facility] Influenza Virus Vaccine Quad .5 mL IM 6+ MO (FLUZONE/FLULAVAL/FL UARIX) Unknown [facility] HPV Unknown [facility] Meningococcal Polysaccharide (groups A, C, Y and W-135) conjugate vaccine (MCV4P) Unknown [facility] Varicella (varivax)(chicken pox) Unknown Com[facility] SARS-COV-2 COVID-19 VACCINE - (MODERNA) Unknown Completed [facility] SARS-COV-2 COVID-19 VACCINE - (MODERNA) Unknown Completed [facility] DTaP, Unspecified Formulation Unknown [facility] DTaP, Unspecified Formulation Unknown Completed [facility] DTaP, Unspecified Formulation Unknown Completed [facility] DTaP, Unspecified Formulation Unknown Completed [facility] HEPATITIS A Unknown Completed [facility] Hep B, Adol or Pedi Dosage Unknown Com[facility] Hep B, Adol or Pedi Dosage Unknown Completed [facility] HIB 4 Dose Schedule Unknown Completed [facility] HIB 4 Dose Schedule Unknown [facility] MMR Unknown [facility] IPV Unknown [facility] IPV Unknown Completed [facility] Poliovirus, Live, Oral, Trivalent Unknown [facility] Poliovirus, Live, Oral, Trivalent Unknown [facility]heria [facility] Influenza Virus Vaccine Quad IM, Preserv and ABX Free 6 MO-64 YRS (FLUCELVAX) Unknown Completed [facility] HPV Unknown [facility] Meningococcal Polysaccharide (groups A, C, Y and W-135) conjugate vaccine (MCV4P) Unknown [facility] TDAP (ADACEL) VACCINE Unknown [facility] Influenza Virus Vaccine Quad .5 mL IM 6+ MO (FLUZONE/FLULAVAL/FL UARIX) Unknown [facility] TDAP (ADACEL) VACCINE Unknown Completed [facility] [facility]) [facility] Influenza Virus Vaccine Quad .5 mL IM 6+ MO (FLUZONE/FLULAVAL/FL UARIX) Unknown [facility] HPV Unknown [facility] Meningococcal Polysaccharide (groups A, C, Y and W-135) conjugate vaccine (MCV4P) Unknown [facility] Varicella (varivax)(chicken pox) Unknown [facility] SARS-COV-2 COVID-19 VACCINE - (MODERNA) Unknown Completed [facility] SARS-COV-2 COVID-19 VACCINE - (MODERNA) Unknown Completed [facility] DTaP, Unspecified Formulation Unknown [facility] DTaP, Unspecified Formulation Unknown [facility] DTaP, Unspecified Formulation Unknown [facility] DTaP, Unspecified Formulation Unknown [facility] HEPATITIS A Unknown Completed [facility] Hep B, Adol or Pedi Dosage Unknown [facility] Hep B, Adol or Pedi Dosage Unknown [facility] HIB 4 Dose Schedule Unknown [facility] HIB 4 Dose Schedule Unknown [facility] MMR Unknown [facility] IPV Unknown [facility] IPV Unknown [facility] Poliovirus, Live, Oral, Trivalent Unknown [facility] Poliovirus, Live, Oral, Trivalent Unknown [facility] Influenza Virus Vaccine Quad IM, Preserv and ABX Free 6 MO-64 YRS (FLUCELVAX) Unknown [facility] HPV Unknown [facility] Meningococcal Polysaccharide (groups A, C, Y and W-135) conjugate vaccine (MCV4P) Unknown [facility] (ADACEL) VACCINE Unknown [facility] Influenza Virus Vaccine Quad .5 mL IM 6+ MO (FLUZONE/FLULAVAL/FL UARIX) Unknown [facility] TDAP (ADACEL) VACCINE Unknown [facility] TDAP (ADACEL) VACCINE Unknown [facility] Influenza Virus Vaccine Quad .5 mL IM 6+ MO (FLUZONE/FLULAVAL/FL UARIX) Unknown [facility] HPV Unknown [facility] Meningococcal Polysaccharide (groups A, C, Y and W-135) conjugate vaccine (MCV4P) Unknown [facility] Varicella (varivax)(chicken pox) Unknown [facility] SARS-COV-2 COVID-19 VACCINE - (MODERNA) Unknown Completed [facility] SARS-COV-2 COVID-19 VACCINE - (MODERNA) Unknown Completed [facility] DTaP, Unspecified Formulation Unknown [facility] DTaP, Unspecified Formulation Unknown [facility] DTaP, Unspecified Formulation Unknown [facility] DTaP, Unspecified Formulation Unknown [facility] HEPATITIS A Unknown Completed [facility] Hep B, Adol or Pedi Dosage Unknown [facility] Hep B, Adol or Pedi Dosage Unknown [facility] HIB 4 Dose Schedule Unknown [facility] HIB 4 Dose Schedule Unknown [facility] MMR Unknown [facility] IPV Unknown [facility] IPV Unknown [facility] Poliovirus, Live, Oral, Trivalent Unknown [facility] Poliovirus, Live, Oral, Trivalent Unknown [facility] Tetanus/Diptheria Unknown Completed [facility] TDAP Unknown [facility] Influenza Virus Vaccine Quad IM, Preserv and ABX Free 6 MO-64 YRS (FLUCELVAX) Unknown [facility] HPV Unknown [facility] Meningococcal Polysaccharide (groups A, C, Y and W-135) conjugate vaccine (MCV4P) Unknown [facility] (ADACEL) VACCINE Unknown [facility] Influenza Virus Vaccine Quad .5 mL IM 6+ MO (FLUZONE/FLULAVAL/FL UARIX) Unknown [facility] TDAP (ADACEL) VACCINE Unknown [facility] TDAP (ADACEL) VACCINE Unknown [facility] Influenza Virus Vaccine Quad .5 mL IM 6+ MO (FLUZONE/FLULAVAL/FL UARIX) Unknown [facility] HPV Unknown [facility] Meningococcal Polysaccharide (groups A, C, Y and W-135) conjugate vaccine (MCV4P) Unknown [facility] Varicella (varivax)(chicken pox) Unknown [facility] SARS-COV-2 COVID-19 VACCINE - (MODERNA) Unknown Completed [facility] SARS-COV-2 COVID-19 VACCINE - (MODERNA) Unknown Completed [facility] DTaP, Unspecified Formulation Unknown [facility] DTaP, Unspecified Formulation Unknown [facility] DTaP, Unspecified Formulation Unknown [facility] DTaP, Unspecified Formulation Unknown [facility] HEPATITIS A Unknown Completed [facility] Hep B, Adol or Pedi Dosage Unknown [facility] Hep B, Adol or Pedi Dosage Unknown [facility] HIB 4 Dose Schedule Unknown [facility] HIB 4 Dose Schedule Unknown [facility] MMR Unknown [facility] IPV Unknown [facility] IPV Unknown [facility] Poliovirus, Live, Oral, Trivalent Unknown [facility] Poliovirus, Live, Oral, Trivalent Unknown [facility] Tetanus/Diptheria [facility] Influenza Virus Vaccine Quad IM, Preserv and ABX Free 6 MO-64 YRS (FLUCELVAX) Unknown [facility] HPV Unknown [facility] Meningococcal Polysaccharide (groups A, C, Y and W-135) conjugate vaccine (MCV4P) Unknown [facility] TD[facility] (ADACEL) VACCINE Unknown [facility] Influenza Virus Vaccine Quad .5 mL IM 6+ MO (FLUZONE/FLULAVAL/FL UARIX) Unknown [facility] TDAP (ADACEL) VACCINE Unknown [facility] TDAP (ADACEL) VACCINE Unknown [facility] Influenza Virus Vaccine Quad .5 mL IM 6+ MO (FLUZONE/FLULAVAL/FL UARIX) Unknown [facility] HPV Unknown [facility] Meningococcal Polysaccharide (groups A, C, Y and W-135) conjugate vaccine (MCV4P) Unknown [facility] Varicella (varivax)(chicken pox) Unknown [facility] SARS-COV-2 COVID-19 VACCINE - (MODERNA) Unknown Completed [facility] SARS-COV-2 COVID-19 VACCINE - (MODERNA) Unknown Completed [facility] DTaP, Unspecified Formulation Unknown [facility] DTaP, Unspecified Formulation Unknown [facility] DTaP, Unspecified Formulation Unknown [facility] DTaP, Unspecified Formulation Unknown [facility] HEPATITIS A Unknown Completed [facility] Hep B, Adol or Pedi Dosage Unknown [facility] Hep B, Adol or Pedi Dosage Unknown [facility] HIB 4 Dose Schedule Unknown [facility] HIB 4 Dose Schedule Unknown [facility] MMR Unknown [facility] IPV Unknown [facility] IPV Unknown [facility] Poliovirus, Live, Oral, Trivalent Unknown [facility] Poliovirus, Live, Oral, Trivalent Unknown [facility] Tetanus/Diptheria Unknown Completed [facility] TDAP Unknown [facility] Influenza Virus Vaccine Quad IM, Preserv and ABX Free 6 MO-64 YRS (FLUCELVAX) Unknown [facility] HPV Unknown [facility] Meningococcal Polysaccharide (groups A, C, Y and W-135) conjugate vaccine (MCV4P) Unknown [facility] TD[facility] (ADACEL) VACCINE Unknown [facility] Influenza Virus Vaccine Quad .5 mL IM 6+ MO (FLUZONE/FLULAVAL/FL UARIX) Unknown [facility] TDAP (ADACEL) VACCINE Unknown [facility] TDAP (ADACEL) VACCINE Unknown Com[facility] Influenza Virus Vaccine Quad .5 mL IM 6+ MO (FLUZONE/FLULAVAL/FL UARIX) Unknown [facility] HPV Unknown [facility] Meningococcal Polysaccharide (groups A, C, Y and W-135) conjugate vaccine (MCV4P) Unknown [facility] Varicella (varivax)(chicken pox) Unknown [facility] SARS-COV-2 COVID-19 VACCINE - (MODERNA) Unknown Completed [facility] SARS-COV-2 COVID-19 VACCINE - (MODERNA) Unknown Completed [facility] DTaP, Unspecified Formulation Unknown [facility] DTaP, Unspecified Formulation Unknown [facility] DTaP, Unspecified Formulation Unknown Com[facility] DTaP, Unspecified Formulation Unknown [facility] HEPATITIS A Unknown Completed [facility] Hep B, Adol or Pedi Dosage Unknown [facility] Hep B, Adol or Pedi Dosage Unknown [facility] HIB 4 Dose Schedule Unknown [facility] HIB 4 Dose Schedule Unknown [facility] MMR Unknown [facility] IPV Unknown [facility] IPV Unknown [facility] Poliovirus, Live, Oral, Trivalent Unknown [facility] Poliovirus, Live, Oral, Trivalent Unknown [facility] Tetanus/Diptheria Unknown Completed [facility] TDAP Unknown [facility] Influenza Virus Vaccine Quad IM, Preserv and ABX Free 6 MO-64 YRS (FLUCELVAX) Unknown [facility] HPV Unknown [facility] Meningococcal Polysaccharide (groups A, C, Y and W-135) conjugate vaccine (MCV4P) Unknown [facility] (ADACEL) VACCINE Unknown [facility] Influenza Virus Vaccine Quad .5 mL IM 6+ MO (FLUZONE/FLULAVAL/FL UARIX) Unknown [facility] TDAP (ADACEL) VACCINE Unknown [facility] TDAP (ADACEL) VACCINE Unknown [facility] Influenza Virus Vaccine Quad .5 mL IM 6+ MO (FLUZONE/FLULAVAL/FL UARIX) Unknown [facility] HPV Unknown [facility] Meningococcal Polysaccharide (groups A, C, Y and W-135) conjugate vaccine (MCV4P) Unknown [facility] Varicella (varivax)(chicken pox) Unknown [facility] SARS-COV-2 COVID-19 VACCINE - (MODERNA) Unknown Completed [facility] SARS-COV-2 COVID-19 VACCINE - (MODERNA) Unknown Completed [facility] DTaP, Unspecified Formulation Unknown [facility] DTaP, Unspecified Formulation Unknown [facility] DTaP, Unspecified Formulation Unknown [facility] DTaP, Unspecified Formulation Unknown [facility] HEPATITIS A Unknown Completed [facility] Hep B, Adol or Pedi Dosage Unknown [facility] Hep B, Adol or Pedi Dosage Unknown [facility] HIB 4 Dose Schedule Unknown [facility] HIB 4 Dose Schedule Unknown [facility] MMR Unknown [facility] IPV Unknown [facility] IPV Unknown [facility] Poliovirus, Live, Oral, Trivalent Unknown [facility] Poliovirus, Live, Oral, Trivalent Unknown [facility] Tetanus/Diptheria Unknown Completed [facility] TDAP Unknown [facility] Influenza Virus Vaccine Quad IM, Preserv and ABX Free 6 MO-64 YRS (FLUCELVAX) Unknown [facility] HPV Unknown [facility] Meningococcal Polysaccharide (groups A, C, Y and W-135) conjugate vaccine (MCV4P) Unknown [facility] TD[facility] (ADACEL) VACCINE Unknown [facility] Influenza Virus Vaccine Quad .5 mL IM 6+ MO (FLUZONE/FLULAVAL/FL UARIX) Unknown Com[facility] TDAP (ADACEL) VACCINE Unknown [facility] TDAP (ADACEL) VACCINE Unknown Com[facility] Influenza Virus Vaccine Quad .5 mL IM 6+ MO (FLUZONE/FLULAVAL/FL UARIX) Unknown [facility] HPV Unknown [facility] Meningococcal Polysaccharide (groups A, C, Y and W-135) conjugate vaccine (MCV4P) Unknown [facility] Varicella (varivax)(chicken pox) Unknown [facility] SARS-COV-2 COVID-19 VACCINE - (MODERNA) Unknown Completed [facility] SARS-COV-2 COVID-19 VACCINE - (MODERNA) Unknown Completed [facility] DTaP, Unspecified Formulation Unknown [facility] DTaP, Unspecified Formulation Unknown [facility] DTaP, Unspecified Formulation Unknown [facility] DTaP, Unspecified Formulation Unknown [facility] HEPATITIS A Unknown Completed [facility] Hep B, Adol or Pedi Dosage Unknown [facility] Hep B, Adol or Pedi Dosage Unknown [facility] HIB 4 Dose Schedule Unknown [facility] HIB 4 Dose Schedule Unknown [facility] MMR Unknown [facility] IPV Unknown [facility] IPV Unknown [facility] Poliovirus, Live, Oral, Trivalent Unknown [facility] Poliovirus, Live, Oral, Trivalent Unknown [facility] Tetanus/Diptheria [facility] Influenza Virus Vaccine Quad IM, Preserv and ABX Free 6 MO-64 YRS (FLUCELVAX) Unknown [facility] HPV Unknown [facility] Meningococcal Polysaccharide (groups A, C, Y and W-135) conjugate vaccine (MCV4P) Unknown [facility] TDAP (ADACEL) VACCINE Unknown [facility] Influenza Virus Vaccine Quad .5 mL IM 6+ MO (FLUZONE/FLULAVAL/FL UARIX) Unknown Completed [facility] TDAP (ADACEL) VACCINE Unknown [facility] TDAP (ADACEL) VACCINE Unknown Com[facility] Influenza Virus Vaccine Quad .5 mL IM 6+ MO (FLUZONE/FLULAVAL/FL UARIX) Unknown [facility] HPV Unknown [facility] Meningococcal Polysaccharide (groups A, C, Y and W-135) conjugate vaccine (MCV4P) Unknown [facility] Varicella (varivax)(chicken pox) Unknown [facility] SARS-COV-2 COVID-19 VACCINE - (MODERNA) Unknown Completed [facility] SARS-COV-2 COVID-19 VACCINE - (MODERNA) Unknown Completed [facility] DTaP, Unspecified Formulation Unknown [facility] DTaP, Unspecified Formulation Unknown [facility] DTaP, Unspecified Formulation Unknown [facility] DTaP, Unspecified Formulation Unknown [facility] HEPATITIS A Unknown Completed [facility] Hep B, Adol or Pedi Dosage Unknown [facility] Hep B, Adol or Pedi Dosage Unknown Com[facility] HIB 4 Dose Schedule Unknown [facility] HIB 4 Dose Schedule Unknown [facility] MMR Unknown [facility] IPV Unknown [facility] IPV Unknown [facility] Poliovirus, Live, Oral, Trivalent Unknown [facility] Poliovirus, Live, Oral, Trivalent Unknown [facility] Tetanus/Diptheria Unknown Completed [facility] TDAP Unknown [facility] Influenza Virus Vaccine Quad IM, Preserv and ABX Free 6 MO-64 YRS (FLUCELVAX) Unknown [facility] HPV Unknown [facility] Meningococcal Polysaccharide (groups A, C, Y and W-135) conjugate vaccine (MCV4P) Unknown [facility] TDAP (ADACEL) VACCINE Unknown [facility] Influenza Virus Vaccine Quad .5 mL IM 6+ MO (FLUZONE/FLULAVAL/FL UARIX) Unknown Completed [facility] TDAP (ADACEL) VACCINE Unknown [facility] TDAP (ADACEL) VACCINE Unknown Com[facility] Influenza Virus Vaccine Quad .5 mL IM 6+ MO (FLUZONE/FLULAVAL/FL UARIX) Unknown [facility] HPV Unknown [facility] Meningococcal Polysaccharide (groups A, C, Y and W-135) conjugate vaccine (MCV4P) Unknown [facility] Varicella (varivax)(chicken pox) Unknown [facility] SARS-COV-2 COVID-19 VACCINE - (MODERNA) Unknown Completed [facility] SARS-COV-2 COVID-19 VACCINE - (MODERNA) Unknown Completed [facility] DTaP, Unspecified Formulation Unknown [facility] DTaP, Unspecified Formulation Unknown [facility]pleted [facility] DTaP, Unspecified Formulation Unknown Completed [facility] DTaP, Unspecified Formulation Unknown [facility] HEPATITIS A Unknown Completed [facility] Hep B, Adol or Pedi Dosage Unknown [facility] Hep B, Adol or Pedi Dosage Unknown [facility] HIB 4 Dose Schedule Unknown [facility] HIB 4 Dose Schedule Unknown [facility] MMR Unknown [facility] IPV Unknown [facility] IPV Unknown [facility] Poliovirus, Live, Oral, Trivalent Unknown [facility] Poliovirus, Live, Oral, Trivalent Unknown [facility] Tetanus/Diptheria Unknown Completed [facility] TDAP Unknown [facility] Influenza Virus Vaccine Quad IM, Preserv and ABX Free 6 MO-64 YRS (FLUCELVAX) Unknown [facility] HPV Unknown [facility] Meningococcal Polysaccharide (groups A, C, Y and W-135) conjugate vaccine (MCV4P) Unknown [facility] TDAP (ADACEL) VACCINE Unknown [facility] Influenza Virus Vaccine Quad .5 mL IM 6+ MO (FLUZONE/FLULAVAL/FL UARIX) Unknown Com[facility] TDAP (ADACEL) VACCINE Unknown [facility] TDAP (ADACEL) VACCINE Unknown Com[facility] Influenza Virus Vaccine Quad .5 mL IM 6+ MO (FLUZONE/FLULAVAL/FL UARIX) Unknown [facility] HPV Unknown [facility] Meningococcal Polysaccharide (groups A, C, Y and W-135) conjugate vaccine (MCV4P) Unknown [facility] Varicella (varivax)(chicken pox) Unknown [facility] SARS-COV-2 COVID-19 VACCINE - (MODERNA) Unknown Completed [facility] SARS-COV-2 COVID-19 VACCINE - (MODERNA) Unknown Completed [facility] DTaP, Unspecified Formulation Unknown [facility] DTaP, Unspecified Formulation Unknown Completed [facility] DTaP, Unspecified Formulation Unknown Com[facility] DTaP, Unspecified Formulation Unknown [facility] HEPATITIS A Unknown Completed [facility] Hep B, Adol or Pedi Dosage Unknown [facility] Hep B, Adol or Pedi Dosage Unknown [facility] HIB 4 Dose Schedule Unknown [facility] HIB 4 Dose Schedule Unknown [facility] MMR Unknown [facility] IPV Unknown [facility] IPV Unknown [facility] Poliovirus, Live, Oral, Trivalent Unknown [facility] Poliovirus, Live, Oral, Trivalent Unknown [facility] Tetanus/Diptheria Unknown [facility] Influenza Virus Vaccine Quad IM, Preserv and ABX Free 6 MO-64 YRS (FLUCELVAX) Unknown [facility]pleted [facility] DTAP Unknown [facility] HIB 4 Dose Schedule Unknown [facility] Hep B, Adol or Pedi Dosage Unknown [facility] MMR Unknown [facility] Polio (IPV/OPV) Unknown Completed [facility] Varicella (varivax)(chicken pox) Unknown [facility] DTAP Unknown [facility] Hep B, Adol or Pedi Dosage Unknown [facility] HIB 4 Dose Schedule Unknown [facility] Polio (IPV/OPV) Unknown Completed [facility] MMR Unknown [facility] Varicella (varivax)(chicken pox) Unknown [facility] HPV Unknown [facility] Meningococcal Polysaccharide (groups A, C, Y and W-135) conjugate vaccine (MCV4P) Unknown [facility] TDAP (ADACEL) VACCINE Unknown [facility] Influenza Virus Vaccine Quad .5 mL IM 6+ MO (FLUZONE/FLULAVAL/FL UARIX) Unknown Completed [facility] TDAP (ADACEL) VACCINE Unknown [facility] TDAP (ADACEL) VACCINE Unknown Com[facility] Influenza Virus Vaccine Quad .5 mL IM 6+ MO (FLUZONE/FLULAVAL/FL UARIX) Unknown [facility] HPV Unknown [facility] Meningococcal Polysaccharide (groups A, C, Y and W-135) conjugate vaccine (MCV4P) Unknown [facility] Varicella (varivax)(chicken pox) Unknown [facility] SARS-COV-2 COVID-19 VACCINE - (MODERNA) Unknown Completed [facility] SARS-COV-2 COVID-19 VACCINE - (MODERNA) Unknown Completed [facility] DTaP, Unspecified Formulation Unknown [facility] DTaP, Unspecified Formulation Unknown [facility] DTaP, Unspecified Formulation Unknown Completed [facility] DTaP, Unspecified Formulation Unknown [facility] HEPATITIS A Unknown Completed [facility] Hep B, Adol or Pedi Dosage Unknown [facility] Hep B, Adol or Pedi Dosage Unknown [facility] HIB 4 Dose Schedule Unknown [facility] HIB 4 Dose Schedule Unknown [facility] MMR Unknown [facility] IPV Unknown [facility] IPV Unknown [facility] Poliovirus, Live, Oral, Trivalent Unknown [facility] Poliovirus, Live, Oral, Trivalent Unknown [facility] Tetanus/Diptheria Unknown Completed [facility] TDAP Unknown [facility] Influenza Virus Vaccine Quad IM, Preserv and ABX Free 6 MO-64 YRS (FLUCELVAX) Unknown Completed [facility] [facility] Signs Vital Name Observation Time Observation Value Comments S ource Systolic blood pressure 2023-10-10 17:38:00 102 mm[Hg] General acute hospital Diastolic blood pressure 2023-10-10 17:38:00 78 mm[Hg] General acute hospital Heart rate 2023-10-10 17:38:00 84 /min [facility] Respiratory rate 2023-10-10 17:38:00 18 /min [facility] Body weight 2023-10-10 17:38:00 92.987 kg [facility] BMI 2023-10-10 17:38:00 34.11 kg/m2 [facility] Oxygen saturation in Arterial blood by Pulse oximetry 2023-10-10 17:38:00 99 /min General acute hospital Systolic blood pressure 2023-09-27 13:45:00 105 mm[Hg] General acute hospital Diastolic blood pressure 2023-09-27 13:45:00 52 mm[Hg] General acute hospital Heart rate 2023-09-27 13:45:00 63 /min [facility] Body temperature 2023-09-27 13:45:00 36.61 [facility] Respiratory rate 2023-09-27 13:45:00 16 /min [facility] Oxygen saturation in Arterial blood by Pulse oximetry 2023-09-27 13:45:00 99 /min General acute hospital Body weight 2023-09-26 14:00:00 103 kg [facility] BMI 2023-09-26 14:00:00 37.79 kg/m2 [facility] Systolic blood pressure 2023-09-18 21:43:00 119 mm[Hg] General acute hospital Diastolic blood pressure 2023-09-18 21:43:00 75 mm[Hg] General acute hospital Heart rate 2023-09-18 21:43:00 86 /min [facility] Body temperature 2023-09-18 21:43:00 36.78 [facility] Respiratory rate 2023-09-18 21:43:00 18 /min [facility] Body height 2023-09-18 21:43:00 165.1 cm [facility] Body weight 2023-09-18 21:43:00 102.241 kg [facility] BMI 2023-09-18 21:43:00 37.51 kg/m2 [facility] Oxygen saturation in Arterial blood by Pulse oximetry 2023-09-18 21:43:00 100 /min General acute hospital Systolic blood pressure 2023-09-16 09:30:00 118 mm[Hg] General acute hospital Diastolic blood pressure 2023-09-16 09:30:00 70 mm[Hg] General acute hospital Heart rate 2023-09-16 09:30:00 93 /[facility] Body temperature 2023-09-16 09:30:00 36.83 [facility] Oxygen saturation in Arterial blood by Pulse oximetry 2023-09-16 09:30:00 100 /min General acute hospital Respiratory rate 2023-09-16 07:45:00 17 /min [facility] Systolic blood pressure 2023-09-11 22:18:00 125 mm[Hg] General acute hospital Diastolic blood pressure 2023-09-11 22:18:00 73 mm[Hg] General acute hospital Heart rate 2023-09-11 22:18:00 86 /min [facility] Body temperature 2023-09-11 22:18:00 37.28 [facility] Respiratory rate 2023-09-11 22:18:00 16 /min [facility] Body weight 2023-09-11 22:18:00 98.612 kg [facility] BMI 2023-09-11 22:18:00 36.18 kg/m2 [facility] Oxygen saturation in Arterial blood by Pulse oximetry 2023-09-11 22:18:00 100 /min General acute hospital Systolic blood pressure 2023-09-08 03:30:00 125 mm[Hg] General acute hospital Diastolic blood pressure 2023-09-08 03:30:00 65 mm[Hg] General acute hospital Heart rate 2023-09-08 03:30:00 92 /min [facility] Oxygen saturation in Arterial blood by Pulse oximetry 2023-09-08 03:30:00 100 /min [facility] acute hospital Body temperature 2023-09-08 02:40:00 36.61 [facility] Respiratory rate 2023-09-08 02:40:00 17 /min [facility] Systolic blood pressure 2023-09-03 22:00:00 112 mm[Hg] General acute hospital Diastolic blood pressure 2023-09-03 22:00:00 70 mm[Hg] General acute hospital Heart rate 2023-09-03 22:00:00 109 /min [facility] Oxygen saturation in Arterial blood by Pulse oximetry 2023-09-03 22:00:00 100 /min General acute hospital Body temperature 2023-09-03 21:37:00 36.78 [facility] Respiratory rate 2023-09-03 21:37:00 16 /min [facility] Body height 2023-09-03 21:13:00 165.1 cm [facility] Body weight 2023-09-03 21:13:00 96.798 kg [facility] BMI 2023-09-03 21:13:00 35.51 kg/m2 [facility] Systolic blood pressure 2023-09-02 20:21:00 113 mm[Hg] General acute hospital Diastolic blood pressure 2023-09-02 20:21:00 67 mm[Hg] General acute hospital Heart rate 2023-09-02 20:21:00 93 /min [facility] Body temperature 2023-09-02 20:21:00 36.83 [facility] Respiratory rate 2023-09-02 20:21:00 16 /min [facility] Body height 2023-09-02 20:21:00 165.1 cm [facility] Body weight 2023-09-02 20:21:00 95.255 kg [facility] BMI 2023-09-02 20:21:00 34.95 kg/m2 [facility] Oxygen saturation in Arterial blood by Pulse oximetry 2023-09-02 20:21:00 97 /min General acute hospital Systolic blood pressure 2023-08-28 17:08:00 108 mm[Hg] General acute hospital Diastolic blood pressure 2023-08-28 17:08:00 69 mm[Hg] General acute hospital Heart rate 2023-08-28 17:08:00 90 /min [facility] Body temperature 2023-08-28 17:08:00 36.5 [facility] Body height 2023-08-28 17:08:00 165.1 cm [facility] Body weight 2023-08-28 17:08:00 94.439 kg [facility] BMI 2023-08-28 17:08:00 34.65 kg/m2 [facility] Heart rate 2023-08-22 18:00:00 84 /min [facility] Oxygen saturation in Arterial blood by Pulse oximetry 2023-08-22 18:00:00 99 /min General acute hospital Systolic blood pressure 2023-08-22 17:00:00 123 mm[Hg] General acute hospital Diastolic blood pressure 2023-08-22 17:00:00 63 mm[Hg] General acute hospital Body temperature 2023-08-22 17:00:00 36.06 [facility] Respiratory rate 2023-08-22 17:00:00 16 /min [facility] Body weight 2023-08-20 21:50:00 99.542 kg [facility] BMI 2023-08-20 21:50:00 36.52 kg/m2 [facility] Body height 2023-08-20 21:01:00 165.1 cm [facility] Systolic blood pressure 2023-08-04 16:25:00 108 mm[Hg] General acute hospital Diastolic blood pressure 2023-08-04 16:25:00 64 mm[Hg] General acute hospital Heart rate 2023-08-04 16:25:00 87 /min [facility] Body temperature 2023-08-04 16:25:00 36.56 [facility] Respiratory rate 2023-08-04 16:25:00 18 /min [facility] Body height 2023-08-04 16:25:00 165.1 cm [facility] Body weight 2023-08-04 16:25:00 94.802 kg [facility] BMI 2023-08-04 16:25:00 34.78 kg/m2 [facility] Oxygen saturation in Arterial blood by Pulse oximetry 2023-08-04 16:25:00 99 /min General acute hospital Heart rate 2023-07-29 09:45:00 92 /min [facility] Oxygen saturation in Arterial blood by Pulse oximetry 2023-07-29 09:45:00 100 /min General acute hospital Body height 2023-07-29 09:38:00 165.1 cm [facility] Body weight 2023-07-29 09:38:00 97.614 kg [facility] BMI 2023-07-29 09:38:00 35.81 kg/m2 [facility] Systolic blood pressure 2023-07-29 09:30:00 119 mm[Hg] General acute hospital Diastolic blood pressure 2023-07-29 09:30:00 64 mm[Hg] General acute hospital Body temperature 2023-07-29 09:30:00 36.67 [facility] Heart rate 2023-06-14 20:00:00 63 /min [facility] Oxygen saturation in Arterial blood by Pulse oximetry 2023-06-14 20:00:00 100 /min General acute hospital Systolic blood pressure 2023-06-14 18:02:00 112 mm[Hg] General acute hospital Diastolic blood pressure 2023-06-14 18:02:00 58 mm[Hg] General acute hospital Body temperature 2023-06-14 18:02:00 36.89 [facility] Respiratory rate 2023-06-14 18:02:00 16 /min [facility] Body height 2023-06-14 17:49:00 165.1 cm [facility] Body weight 2023-06-14 17:49:00 93.35 kg [facility] BMI 2023-06-14 17:49:00 34.25 kg/m2 [facility] Systolic blood pressure 2023-05-03 22:46:00 117 mm[Hg] General acute hospital Diastolic blood pressure 2023-05-03 22:46:00 70 mm[Hg] General acute hospital Heart rate 2023-05-03 22:46:00 94 /min [facility] Body temperature 2023-05-03 22:46:00 36.67 [facility] Respiratory rate 2023-05-03 22:46:00 18 /min [facility] Oxygen saturation in Arterial blood by Pulse oximetry 2023-05-03 22:46:00 99 /min General acute hospital Heart rate 2023-04-18 21:00:00 77 /min [facility] Oxygen saturation in Arterial blood by Pulse oximetry 2023-04-18 21:00:00 100 /min General acute hospital Systolic blood pressure 2023-04-18 20:00:00 138 mm[Hg] General acute hospital Diastolic blood pressure 2023-04-18 20:00:00 75 mm[Hg] General acute hospital Body temperature 2023-04-18 17:42:00 37.33 [facility] Respiratory rate 2023-04-18 17:42:00 16 /min [facility] Body height 2023-04-18 17:42:00 165.1 cm [facility] Body weight 2023-04-18 17:42:00 92.987 kg [facility] BMI 2023-04-18 17:42:00 34.11 kg/m2 [facility] Systolic blood pressure 2023-04-02 13:43:00 122 mm[Hg] General acute hospital Diastolic blood pressure 2023-04-02 13:43:00 62 mm[Hg] General acute hospital Heart rate 2023-04-02 13:43:00 98 /min [facility] Body temperature 2023-04-02 13:43:00 36.61 [facility] Respiratory rate 2023-04-02 13:43:00 18 /min [facility] Body height 2023-04-02 13:43:00 165.1 cm [facility] Body weight 2023-04-02 13:43:00 94.575 kg [facility] BMI 2023-04-02 13:43:00 34.70 kg/m2 [facility] Systolic blood pressure 2023-03-11 18:08:00 119 mm[Hg] General acute hospital Diastolic blood pressure 2023-03-11 18:08:00 68 mm[Hg] General acute hospital Heart rate 2023-03-11 18:08:00 87 /min [facility] Body temperature 2023-03-11 18:08:00 36.78 [facility] Respiratory rate 2023-03-11 18:08:00 18 /min [facility] Body height 2023-03-11 18:08:00 165.1 cm [facility] Body weight 2023-03-11 18:08:00 93.044 kg [facility] BMI 2023-03-11 18:08:00 34.13 kg/m2 [facility] Systolic blood pressure 2023-02-11 18:05:00 112 mm[Hg] General acute hospital Diastolic blood pressure 2023-02-11 18:05:00 64 mm[Hg] General acute hospital Heart rate 2023-02-11 18:05:00 73 /min [facility] Body temperature 2023-02-11 18:05:00 36.78 [facility] Respiratory rate 2023-02-11 18:05:00 18 /min [facility] Body height 2023-02-11 18:05:00 165.1 cm [facility] Body weight 2023-02-11 18:05:00 88.508 kg [facility] BMI 2023-02-11 18:05:00 32.47 kg/m2 [facility] Systolic blood pressure 2022-01-17 03:00:00 119 mm[Hg] General acute hospital Diastolic blood pressure 2022-01-17 03:00:00 62 mm[Hg] General acute hospital Heart rate 2022-01-17 03:00:00 68 /min [facility] Respiratory rate 2022-01-17 03:00:00 16 /min [facility] Oxygen saturation in Arterial blood by Pulse oximetry 2022-01-17 03:00:00 100 /min General acute hospital Body temperature 2022-01-17 02:03:00 37.28 [facility] Body height 2022-01-17 02:03:00 165.1 cm [facility] Body weight 2022-01-17 02:03:00 90.719 kg [facility] BMI 2022-01-17 02:03:00 33.28 kg/m2 [facility] Systolic blood pressure 2019-05-27 20:39:00 107 mm[Hg] General acute hospital Diastolic blood pressure 2019-05-27 20:39:00 63 mm[Hg] General acute hospital Heart rate 2019-05-27 20:39:00 77 /min [facility] Body temperature 2019-05-27 20:39:00 36.94 [facility] Respiratory rate 2019-05-27 20:39:00 18 /min [facility] Body height 2019-05-27 20:39:00 165.1 cm [facility] Body weight 2019-05-27 20:39:00 98.431 kg [facility] BMI 2019-05-27 20:39:00 36.11 kg/m2 [facility] Systolic blood pressure 2019-05-27 20:39:00 107 mm[Hg] General acute hospital Diastolic blood pressure 2019-05-27 20:39:00 63 mm[Hg] General acute hospital Heart rate 2019-05-27 20:39:00 77 /min [facility] Body temperature 2019-05-27 20:39:00 36.94 [facility] Respiratory rate 2019-05-27 20:39:00 18 /min [facility] Body height 2019-05-27 20:39:00 165.1 cm [facility] Body weight 2019-05-27 20:39:00 98.431 kg [facility] BMI 2019-05-27 20:39:00 36.11 kg/m2 [facility] Systolic blood pressure 2019-05-17 21:39:00 114 mm[Hg] General acute hospital Diastolic blood pressure 2019-05-17 21:39:00 71 mm[Hg] General acute hospital Heart rate 2019-05-17 21:39:00 103 /min [facility] Body temperature 2019-05-17 21:39:00 37.11 [facility] Respiratory rate 2019-05-17 21:39:00 18 /min [facility] Body height 2019-05-17 21:39:00 165.1 cm [facility] Body weight 2019-05-17 21:39:00 100.154 kg [facility] BMI 2019-05-17 21:39:00 36.74 kg/m2 [facility] Systolic blood pressure 2019-05-17 21:39:00 114 mm[Hg] General acute hospital Diastolic blood pressure 2019-05-17 21:39:00 71 mm[Hg] General acute hospital Heart rate 2019-05-17 21:39:00 103 /min [facility] Body temperature 2019-05-17 21:39:00 37.11 [facility] Respiratory rate 2019-05-17 21:39:00 18 /min [facility] Body height 2019-05-17 21:39:00 165.1 cm [facility] Body weight 2019-05-17 21:39:00 100.154 kg [facility] BMI 2019-05-17 21:39:00 36.74 kg/m2 [facility] Systolic blood pressure 2019-05-04 18:09:00 135 mm[Hg] General acute hospital Diastolic blood pressure 2019-05-04 18:09:00 68 mm[Hg] General acute hospital Heart rate 2019-05-04 18:09:00 96 /min [facility] Body temperature 2019-05-04 18:09:00 36.78 [facility] Respiratory rate 2019-05-04 18:09:00 22 /min [facility] Oxygen saturation in Arterial blood by Pulse oximetry 2019-05-04 18:09:00 100 /min [facility] acute hospital Systolic blood pressure 2019-04-29 21:00:00 127 mm[Hg] General acute hospital Diastolic blood pressure 2019-04-29 21:00:00 68 mm[Hg] General acute hospital Heart rate 2019-04-29 21:00:00 87 /min General acute hospital Body temperature 2019-04-29 21:00:00 36.39 [facility] Respiratory rate 2019-04-29 21:00:00 20 /min [facility] Body height 2019-04-29 21:00:00 165.1 cm [facility] Body weight 2019-04-29 21:00:00 98.431 kg [facility] BMI 2019-04-29 21:00:00 36.11 kg/m2 [facility] Procedures Procedure Date / Time Performed Performing Clinician Source CBC WITH DIFF 2023-09-27 00:33:00 Kory Cruz [facility] CENTRAL NEURAXIAL BLOCK 2023-09-25 09:00:00 [facility] URINE DRUG (IMMUNOASSAY) - COMPREHENSIVE DRUG SCREEN 2023-09-25 08:17:00 Kory Cruz [facility] CBC WITH DIFF 2023-09-25 08:05[facility] SURFACE ANTIGEN 2023-09-25 08:05:00 [facility] HB ABO GROUPING 2023-09-25 08:05:00 Anthony [facility] RHO (D) IMMUNE GLOBULIN 2023-09-25 08:05:00 [facility] ADC OR BRIDGER ONLY - RPR 2023-09-25 08:05:00 [facility] HIV 1/2 AG-AB WITH REFLEX 2023-09-25 08:05:00 Anthony [facility] URINE DRUG (IMMUNOASSAY) - COMPREHENSIVE DRUG SCREEN 2023-09-18 22:29:00 [facility] POCT URINALYSIS W/O SPECIFIC GRAVITY 2023-09-18 00:00:00 Cruz [facility] ASSIGNMENT OF BENEFITS 2023-09-16 10:25:05 Docto r Unassigned, [facility] CONSENT/REFUSAL FOR DIAGNOSIS AND TREATMENT 2023-09-16 10:23:26 Doctor Unassigned, [facility] CBC WITH DIFF 2023-09-16 09:30:00 [facility] COMP. METABOLIC PANEL (66722) 2023-09-16 08:49:00 Ariela [facility] >14 WEEKS US LIMITED 2023-09-11 22:52:27 [facility] POCT URINALYSIS W/O SPECIFIC GRAVITY 2023-09-11 00:00:00 [facility] ADC ONLY - FERN TEST 2023-09-08 02:41:00 [facility] POCT URINALYSIS W/O SPECIFIC GRAVITY 2023-08-28 00:00:00 [facility] SECOND AND THIRD TRIMESTER ULTRASOUND 2023-08-22 19:52:00 [facility] POCT GLUCOSE (AUTOMATED) 2023-08-22 01:43:00 [facility] TRANSTHORACIC ECHO (TTE) COMPLETE 2023-08-21 14:54:52 [facility] & RHYTHM STRIP 2023-08-21 14:04:01 Reynaldo [facility] THYROID STIMULATING HORMONE 2023-08-21 13:21:00 [facility] BASIC METABOLIC PANEL (NA, K, CL, CO2, GLUCOSE, BUN, CREATININE, CA) 2023-08-21 13:21:00 [facility] GLYCOSYLATED HEMOGLOBIN (A1C) 2023-08-21 13:21:00 [facility] RUBELLA SCREEN IGG 2023-08-21 13:21:00 [facility] 2023-08-21 13:21:00 [facility] HE[facility]ITIS B SURFACE ANTIGEN 2023-08-21 13:21:00 [facility] HB ABO GROUPING 2023-08-21 13:21:00 Tito Pedersen [facility] HIV 1/2 AG-AB WITH REFLEX 2023-08-21 13:21:00 [facility] SYPHILIS IGG/IGM 2023-08-21 13:21:00 Tito Pedersen [facility] PROTHROMBIN TIME / INR 2023-08-21 01:40:00 [facility] ACTIVATED PARTIAL THRMPLAS BLANCA 2023-08-21 01:40:00 [facility] URINE CULTURE 2023-08-21 01:31:00 Kory Cruz [facility] URINALYSIS 2023-08-21 01:16:[address] [facility] ADC CLC OR LCC ONLY - WET PREP 2023-08-21 01:16:00 Anthony Kory [facility] GROUP B STREPTOCOCCUS BY PCR 2023-08-21 01:16:00 [facility] 2023-08-21 01:15:00 Anthony Koryhadley Vasquez [facility] URINE DRUG (IMMUNOASSAY) - COMPREHENSIVE DRUG SCREEN 2023-08-21 01:14:00 [facility] 2023-08-21 01:14:00 Anthony Kory Pedro [facility] GC & CHLAMYDIA AMPLIFIED ASSAY 2023-08-21 01:13:00 [facility] 2023-08-20 23:58:11 Anthony [facility] US PELVIS > 14 WEEKS 2023-08-20 23:57:55 [facility] XR SHOULDER 2+ VW LEFT 2023-08-20 21:31:00 [facility] HOSPITAL ADMISSION 2023-08-20 06:01:00 Doctor Un assigned, [facility] TDAP VACCINE, >11 YRS, IM 2023-08-04 19:02:35 Anthony [facility] FLU VACC ([id number]), 6 MO-64 YRS, .5ML, IM, QUAD (FLUCELVAX) 2023-08-04 19:02:35 [facility] POCT URINALYSIS W/O SPECIFIC GRAVITY 2023-08-04 00:00:00 [facility] (IMMUNOASSAY) - COMPREHENSIVE DRUG SCREEN 2023-07-29 09:49:00 Jaja [facility] URINALYSIS 2023-07-29 09:49:00 Jaja [facility] US PELVIS > 14 WEEKS 2023-06-14 20:12:00 [facility] 2023-06-14 18:55:00 Kory Cruz [facility] ADC ONLY - FERN TEST 2023-06-14 18:55:00 [facility] ASSIGNMENT OF BENEFITS 2023-06-14 17:37:47 Docto r Unassigned, [facility] CONSENT/REFUSAL FOR DIAGNOSIS AND TREATMENT 2023-06-14 17:36:34 Doctor Unassigned, [facility] SECOND AND THIRD TRIMESTER ULTRASOUND 2023-05-28 21:05:00 [facility] SECOND AND THIRD TRIMESTER ULTRASOUND 2023-05-28 20:25:00 [facility] URINE DRUG (IMMUNOASSAY) - COMPREHENSIVE DRUG SCREEN 2023-04-18 18:48:00 Jaja [facility] ADC CLC OR LCC ONLY - WET PREP 2023-04-18 18:48:00 Jaja [facility] CONSENT/REFUSAL FOR DIAGNOSIS AND TREATMENT 2023-04-18 16:42:47 Doctor Unassigned, [facility] POCT URINALYSIS 2023-04-02 13:44:00 [facility] EXTERNAL PROVIDER RECORDS 2023-03-21 05:01:00 Doctor Unassigned, [facility] POCT URINALYSIS 2023-03-11 18:00:00 [facility] AUTHORIZATION FOR RELEASE OF PHI 2023-03-11 05:01:00 Doctor Unassigned, [facility] POCT URINALYSIS W/O SPECIFIC GRAVITY 2023-02-11 18:03:00 [facility] POCT TEST 2023-02-11 18:02:00 [facility] REPORT OF 2023-02-11 05:01:00 Doctor Kiran harper, [facility] LIPASE 2022-01-17 03:09:00 Yvonne Siddiqi [facility] COMP. METABOLIC PANEL ([id number]) 2022-01-17 03:09:00 [facility] CBC WITH DIFF 2022-01-17 03:09:00 Yvonne Siddiqi [facility] POCT TEST 2022-01-17 02:14:00 [facility] URINALYSIS 2022-01-17 02:10:00 Abraham Weiner [facility] NOTICE OF PRIVACY PRACTICES 2022-01-17 01:36:28 Doctor Unassigned, [facility] CONSENT/REFUSAL FOR DIAGNOSIS AND TREATMENT 2022-01-17 01:36:18 Doctor Unassigned, [facility] TDAP (ADACEL) IMMUNIZATION 2019-05-27 20:41:37 [facility] US ABDOMEN LIMITED 2019-05-17 22:45:16 Zaid [facility] ASSIGNMENT OF BENEFITS 2019-05-17 22:12:10 Docto r Unassigned, [facility] URINALYSIS 2019-05-04 18:55:[address] [facility] ADC CLC OR LCC ONLY - WET PREP 2019-05-04 18:55:00 [facility] ADC ONLY - FERN TEST 2019-05-04 18:54:00 [facility] CONSENT/REFUSAL FOR DIAGNOSIS AND TREATMENT 2019-05-04 17:47:16 Doctor Unassigned, [facility] Encounters Start Date/Time End Date/Time Encounter Type Admission Type Attending [facility] Care Facility Care Department Encounter ID Source 2023-09-16 06:18:56 Outpatient X [facility] [id number] 2023-07-29 06:14:02 Outpatient X [facility] [id number] [facility] 2023-04-18 17:24:48 Outpatient X [facility] [id number] [facility] 2022-08-02 05:16:57 Emergency HFD HFD [id number] [facility] ent 2021-07-08 14:21:14 Outpatient [facility] [id number] [facility] 2023-11-21 00:00:00 2023-11-21 00:00:00 Telephone Kory Cruz [facility] [id number] [facility] 2023-11-15 00:00:00 2023-11-15 00:00:00 Telephone Kory Cruz [facility] [id number] [facility] 2023-10-10 10:30:00 2023-10-10 12:02:47 Outpatient R KORY CRUZ [facility] [id number] [facility] 2023-10-10 10:30:00 2023-10-10 12:02:47 Routine Visit Kory Cruz [facility] [facility] 1.2.840.114 350.1.13.10 4.2.7.2.[id number] [facility] 2023-10-10 00:00:00 2023-10-10 00:00:00 Patient Secure Msg Doctor Unassigned, Aquilla [facility] 1.2.840.114 350.1.13.10 4.2.7.2.[id number] [facility] 2023-10-09 00:00:00 2023-10-09 00:00:00 Telephone Kory Cruz [facility] BUILDING 1.2.840.114 350.1.13.10 4.2.7.2.[id number] [facility] 2023-10-09 00:00:00 2023-10-09 00:00:00 Patient Secure Msg Doctor Unassigned, Aquilla [facility] BUILDING 1.2.840.114 350.1.13.10 4.2.7.2.[id number] [facility] 2023-09-25 01:05:00 2023-09-27 12:55:00 Inpatient X KORY CRUZ [facility] [id number] [facility] 2023-09-25 01:05:00 2023-09-27 12:55:00 Hospital Encounter oKry Cruz [facility] 1..840.114 350.1.13.10 4.2.7.2.[id number] [facility] 2023-09-25 16:00:00 2023-09-25 16:00:00 Outpatient R KROY CRUZ [facility] [id number] [facility] 2023-09-25 03:00:00 2023-09-25 08:52:00 Anesthesia Event Xenia Angel Michelle [facility] 1..840.114 350.1.13.10 4.2.7.2.[id number] [facility] 2023-09-24 00:00:00 2023-09-24 00:00:00 Telephone Kory Cruz [facility] PROFESSIO NAL BUILDING 1..840.114 350.1.13.10 4.2.7.2.[id number] [facility] 2023-09-19 00:10:00 2023-09-19 00:10:00 Outpatient P CANO-EVER S, ARIELA CANO-EVER S, ARIELA [facility] [id number] [facility] 2023-09-18 15:15:00 2023-09-18 16:21:53 Outpatient R KORY CRUZ [facility] [id number] [facility] 2023-09-18 15:15:00 2023-09-18 16:21:53 Routine Visit Kory Cruz [facility]AL BUILDING 1..840.114 350.1.13.10 4.2.7.2.[id number] [facility] 2023-09-16 01:28:00 2023-09-16 03:45:00 Outpatient X CANO-EVER S, ARIELA CANO-EVER S, ARIELA [facility] [id number] [facility] 2023-09-16 01:28:00 2023-09-16 03:45:00 Emergency Cano-Ever s, Ariela [facility] 1.2.840.114 350.1.13.10 4.2.7.2.[id number] [facility] 2023-09-11 16:15:00 2023-09-11 16:50:18 Outpatient R KORY CRUZ [facility] [id number] [facility] 2023-09-11 16:15:00 2023-09-11 16:50:18 Routine Visit Kory Cruz [facility] BUILDING 1.2.840.114 350.1.13.10 4.2.7.2.[id number] [facility] 2023-09-11 14:45:00 2023-09-11 15:00:00 Network Operations Center Engineer Visit 2, Adc Lab Kory Cruz [facility] BUILDING 1.2.840.114 350.1.13.10 4.2.7.2.[id number] [facility] 2023-09-11 11:00:00 2023-09-11 11:00:00 Outpatient R KORY CRUZ [facility] [id number] [facility] 2023-09-09 16:00:00 2023-09-09 16:00:00 Outpatient R KORY CRUZ [facility] [id number] [facility] 2023-09-08 00:00:00 2023-09-08 00:00:00 Telephone [facility] 1.2.840.114 350.1.13.10 4.2.7.2.[id number] [facility] 2023-09-07 20:22:00 2023-09-07 22:06:00 Outpatient X ADMARY PADILLA [facility] [id number] [facility] 2023-09-07 20:22:00 2023-09-07 22:06:00 Emergency AdumMary [facility] 1.2.840.114 350.1.13.10 4.2.7.2.[id number] [facility] 2023-09-03 15:18:00 2023-09-03 17:33:00 Outpatient X KORY CRUZ [facility] [id number] [facility] 2023-09-03 15:18:00 2023-09-03 17:33:00 Emergency Kory Cruz [facility] 1.2.840.114 350.1.13.10 4.2.7.2.[id number] [facility] 2023-09-02 14:23:00 2023-09-02 15:18:00 Outpatient P ADMARY PADILLA [facility] [id number] [facility] 2023-09-02 14:23:00 2023-09-02 15:18:00 Hospital Encounter AdumMary [facility] 1.2.840.114 350.1.13.10 4.2.7.2.[id number] [facility] 2023-08-28 10:45:00 2023-08-28 11:28:38 Outpatient R KORY CRUZ [facility] [id number] [facility] 2023-08-28 10:45:00 2023-08-28 11:28:38 Routine Visit Kory Cruz [facility] BUILDING 1..114 350.1.13.10 4.2.7.2.[id number] [facility] 2023-08-20 15:22:00 2023-08-22 16:30:00 [facility] [id number] [facility] 2023-08-20 15:22:00 2023-08-22 16:30:00 Emergency Quintero, Nacho Cruz, Kory Kristal Tai [facility] 1.0.114 350.1.13.10 4.2.7.2.[id number] [facility] 2023-08-22 13:00:00 2023-08-22 13:54:45 Network Operations Center Engineer Visit 2, [facility] Us Room Kristal Chung [facility] 1..114 350.1.13.10 4.2.7.2.[id number] [facility] 2023-08-21 20:00:01 2023-08-21 20:00:01 Anesthesia Event Xenia Angel [facility] 1..114 350.1.13.10 4.2.7.2.[id number] [facility] 2023-08-18 14:15:00 2023-08-18 14:15:00 Outpatient R ANTHONY KORY [facility] [id number] [facility] 2023-08-08 13:45:00 2023-08-08 13:45:00 Outpatient R [facility] [id number] [facility] 2023-08-06 00:00:00 2023-08-06 00:00:00 Patient Secure Msg Doctor Unassigned, Aquilla [facility] 1.2.840.114 350.1.13.10 4.2.7.2.[id number] [facility] 2023-08-04 10:00:00 2023-08-04 11:00:40 Outpatient R KORY CRUZ [facility] [id number] [facility] 2023-08-04 10:00:00 2023-08-04 11:00:40 Initial Visit Kory Cruz [facility] 1.2840.114 350.1.13.10 4.2.7.2.[id number] [facility] 2023-07-29 03:10:00 2023-07-29 06:05:00 Outpatient X CANO-EVER S, ARIELA CANO-EVER S, ARIELA [facility] [id number] [facility] 2023-07-29 03:10:00 2023-07-29 06:05:00 Emergency Cano-Ever s, Ariela [facility] 1.2840.114 350.1.13.10 4.2.7.2.[id number] [facility] 2023-07-27 00:00:00 2023-07-27 00:00:00 Nurse Triage Nurse, Suyapa Billings [facility] 1.2840.114 350.1.13.10 4.2.7.2.[id number] [facility] 2023-06-21 00:00:00 2023-06-21 00:00:00 Krystal Ortega [facility]IL AND GAS FIELD TECHNICIAN [facility] 1.2840.114 350.1.13.10 4.2.7.2.[id number] [facility] 2023-06-14 12:51:00 2023-06-14 15:30:00 Outpatient X KORY CRUZ [facility] [id number] [facility] 2023-06-14 12:51:00 2023-06-14 15:30:00 Emergency Kory Cruz Pedro [facility] 1.2.840.114 350.1.13.10 4.2.7.2.[id number] [facility] 2023-06-14 00:00:00 2023-06-14 00:00:00 Nurse Triage Heidi Christianson [facility] 1.2840.114 350.1.13.10 4.2.7.2.[id number] [facility] 2023-06-14 00:00:00 2023-06-14 00:00:00 Orders Only Doctor Unassigned, Aquilla [facility] 1.2840.114 350.1.13.10 4.2.7.2.[id number] [facility] 2023-06-03 00:00:00 2023-06-03 00:00:00 Telephone Huy Mendoza [facility] OIL AND GAS FIELD TECHNICIAN [facility] MATERNAL & CHILD [facility] 1.840.114 350.1.13.10 4.2.7.2.[id number] [facility] 2023-06-02 15:30:00 2023-06-02 15:30:00 Outpatient R HUY MENDOZA [facility] [id number] [facility] 2023-05-30 00:00:00 2023-05-30 00:00:00 Case Management Krystal Low [facility] OIL AND GAS FIELD TECHNICIAN [facility] & CHILD [facility] 1..114 350.1.13.10 4.2.7.2.[id number] [facility] 2023-05-28 14:00:00 2023-05-28 15:19:04 Outpatient P SHELLEY SANCHEZ [facility] [id number] [facility] 2023-05-28 14:00:00 2023-05-28 15:19:04 Network Operations Center Engineer Visit Ultrasound, Shelley Vasquez [facility] OIL AND GAS FIELD TECHNICIAN [facility] & CHILD [facility] 1.2.840.114 350.1.13.10 4.2.7.2.[id number] [facility] 2023-05-21 00:00:00 2023-05-21 00:00:00 RefKrystal Najera [facility] OIL AND GAS FIELD TECHNICIAN [facility] & CHILD [facility] 1..840.114 350.1.13.10 4.2.7.2.[id number] [facility] 2023-05-21 00:00:00 2023-05-21 00:00:00 [facility] AND GAS FIELD TECHNICIAN [facility] & CHILD [facility] 1.840.114 350.1.13.10 4.2.7.2.[id number] [facility] 2023-05-20 15:30:00 2023-05-20 15:30:00 Outpatient R HUY MENDOZA [facility] [id number] [facility] 2023-05-16 09:45:00 2023-05-16 09:45:00 Outpatient R KRYSTAL LOW [facility] [id number] [facility] 2023-05-03 17:42:00 2023-05-03 18:57:00 Outpatient X CANO-EVER S, ARIELA CANO-EVER S, ARIELA [facility] [id number] [facility] 2023-05-03 17:42:00 2023-05-03 18:57:00 Emergency Cano-Ever s, Ariela [facility] 1.840.114 350.1.13.10 4.2.7.2.[id number] [facility] 2023-04-30 10:45:00 2023-04-30 10:45:00 Outpatient R KRYSTAL LOW [facility] [id number] [facility] 2023-04-18 12:18:00 2023-04-18 16:05:00 Outpatient X CANO-EVER S, ARIELA CANO-EVER S, ARIELA [facility] [id number] [facility] 2023-04-18 12:18:00 2023-04-18 16:05:00 Emergency Cano-Ever s, Ariela [facility] 1.2840.114 350.1.13.10 4.2.7.2.[id number] [facility] 2023-04-17 00:00:00 2023-04-17 00:00:00 Telephone Krystal Low [facility] OIL AND GAS FIELD TECHNICIAN [facility] & CHILD [facility] 1.2840.114 350.1.13.10 4.2.7.2.[id number] [facility] 2023-04-17 00:00:00 2023-04-17 00:00:00 Patient Secure Msg Krystal oLw [facility] OIL AND GAS FIELD TECHNICIAN [facility] & CHILD [facility] 1.2.840.114 350.1.13.10 4.2.7.2.[id number] [facility] 2023-04-08 12:45:00 2023-04-08 12:45:00 Outpatient R KRYSTAL LOW [facility] [id number] [facility] 2023-04-07 00:00:00 2023-04-07 00:00:00 Case Management Krystal Low [facility] OIL AND GAS FIELD TECHNICIAN [facility] & CHILD [facility] 1.2840.114 350.1.13.10 4.2.7.2.[id number] [facility] 2023-04-03 10:30:00 2023-04-03 10:30:00 Outpatient R KRYSTAL LOW [facility] [id number] [facility] 2023-04-03 00:00:00 2023-04-03 00:00:00 Refill Krystal Low [facility] OIL AND GAS FIELD TECHNICIAN [facility] & CHILD [facility] 1.0.114 350.1.13.10 4.2.7.2.[id number] [facility] 2023-04-02 08:45:00 2023-04-02 09:15:48 Outpatient R KRYSTAL LOW [facility] [id number] [facility] 2023-04-02 08:45:00 2023-04-02 09:15:48 Routine Visit Krystal Low [facility] OIL AND GAS FIELD TECHNICIAN [facility] & CHILD [facility] 1.0.114 350.1.13.10 4.2.7.2.[id number] [facility] 2023-03-21 00:00:00 2023-03-21 00:00:00 Case [facility] 1..114 350.1.13.10 4.2.7.2.[id number] [facility] 2023-03-21 00:00:00 2023-03-21 00:00:00 Orders Only Doctor Unassigned, Aquilla [facility] ..114 350.1.13.10 4.2.7.2.[id number] [facility] 2023-03-19 00:00:00 2023-03-19 00:00:00 Telephone Krystal Low [facility] OIL AND GAS FIELD TECHNICIAN [facility] & CHILD [facility] 1.0.114 350.1.13.10 4.2.7.2.[id number] [facility] 2023-03-11 12:45:00 2023-03-11 13:26:33 Outpatient R KRYSTAL LOW [facility] [id number] [facility] 2023-03-11 12:45:00 2023-03-11 13:26:33 Routine Visit Krystal Low [facility] OIL AND GAS FIELD TECHNICIAN [facility] & CHILD [facility] 1.2.840.114 350.1.13.10 4.2.7.2.[id number] [facility] 2023-03-11 00:00:00 2023-03-11 00:00:00 Orders Only Doctor Unassigned, Aquilla [facility] 1.2.840.114 350.1.13.10 4.2.7.2.[id number] [facility] 2023-02-18 00:00:00 2023-02-18 00:00:00 Telephone Krystal Low [facility] OIL AND GAS FIELD TECHNICIAN [facility] & CHILD [facility] 1.2.840.114 350.1.13.10 4.2.7.2.[id number] [facility] 2023-02-14 00:00:00 2023-02-14 00:00:00 Case Management Krystal Low [facility] OIL AND GAS FIELD TECHNICIAN [facility] & CHILD [facility] 1.2.840.114 350.1.13.10 4.2.7.2.[id number] [facility] 2023-02-14 00:00:00 2023-02-14 00:00:00 Telephone Maranda Krystal A [facility] OIL AND GAS FIELD TECHNICIAN [facility] & CHILD [facility] 1.2.840.114 350.1.13.10 4.2.7.2.[id number] [facility] 2023-02-11 13:00:00 2023-02-11 14:23:32 Initial Visit Krystal Low [facility] OIL AND GAS FIELD TECHNICIAN [facility]ER[facility] 1.114 350.1.13.10 4.2.7.2.[id number] [facility] 2023-02-11 12:30:00 2023-02-11 13:21:27 Outpatient R KRYSTAL LOW [facility] [id number] [facility] 2023-02-11 00:00:00 2023-02-11 00:00:00 Orders Only Doctor Unassigned, Aquilla [facility] 1.114 350.1.13.10 4.2.7.2.[id number] [facility] 2023-02-10 08:30:00 2023-02-10 08:30:00 Outpatient R HUY MENDOZA [facility] [id number] [facility] 2022-08-02 04:26:00 2022-08-02 11:34:00 Emergency LEEROY GALLO [facility] [address] 2022-01-16 21:05:00 2022-01-17 00:11:00 Emergency X YVONNE SIDDIQI [facility] ERT [id number] [facility] 2022-01-16 21:05:00 2022-01-17 00:11:00 Emergency Yvonne Siddiqi [facility] 1.114 350.1.13.10 4.2.7.2.[id number] [facility] 2021-07-25 00:00:00 2021-07-25 00:00:00 Patient Secure Msg Doctor Unassigned, Aquilla [facility] 1..114 350.1.13.10 4.2.7.2.[id number] [facility] 2021-04-19 13:15:00 2021-04-19 13:15:00 Outpatient Debra ELIS MENDZOAOLA [facility] [id number] [facility] 2021-02-06 00:00:00 2021-02-06 00:00:00 Case Management Jennifer Belcher [place] 1.2.840.114 350.1.13.10 4.2.7.2.[id number] [facility] 2021-02-06 00:00:00 2021-02-06 00:00:00 Case Management Jennifer Belcher [place] 1.2.840.114 350.1.13.10 4.2.7.2.686 [id number] 2020-12-12 00:00:00 2020-12-12 00:00:00 Patient Outreach Broderick Melton [facility] 1.2.840.114 350.1.13.10 4.2.7.2.686 [id number] 2020-12-12 00:00:00 2020-12-12 00:00:00 Patient Outreach Broderick Melton [facility] 1.2.840.114 350.1.13.10 4.2.7.2.[id number] [facility] 2020-02-28 15:00:00 2020-02-28 15:00:00 Outpatient JOSY ALANIS [facility] [id number] [facility] 2019-12-18 17:30:00 2019-12-18 17:30:00 Outpatient KRISSY MAYFIELD [facility] [id number] [facility] 2019-11-18 14:30:00 2019-11-18 14:30:00 Outpatient JOSY ALANIS [facility] [id number] [facility] 2019-05-27 14:41:30 2019-05-27 15:54:53 Routine Visit Josy Chaudhary [facility] 1.2.840.114 350.1.13.10 4.2.7.2.686 [id number] 2019-05-27 14:41:30 2019-05-27 15:54:53 Routine Visit Josy Chaudhary [facility] 1.2.840.114 350.1.13.10 4.2.7.2.[id number] [facility] 2019-05-17 17:15:00 2019-05-17 23:59:00 Hospital Encounter Zaid [facility] 1.2.840.114 350.1.13.10 4.2.7.2.[id number] [facility] 2019-05-17 17:21:30 2019-05-17 17:36:30 Network Operations Center Engineer Visit 1, Adc Lab Kory Cruz Pedro [facility] 1.2.840.114 350.1.13.10 4.2.7.2.[id number] [facility] 2019-05-17 15:55:01 2019-05-17 16:56:25 Office Visit Josy Chaudhary [facility] 1.2.840.114 350.1.13.10 4.2.7.2.686 [id number] 2019-05-17 15:55:01 2019-05-17 16:56:25 Office Visit Josy Chaudhary [facility] 1.2.840.114 350.1.13.10 4.2.7.2.[id number] [facility] 2019-05-17 00:00:00 2019-05-17 00:00:00 Orders Only Doctor Unassigned, Aquilla [facility] 1.2.840.114 350.1.13.10 4.2.7.2.[id number] [facility] 2019-05-05 00:00:00 2019-05-05 00:00:00 Telephone Josy Chaudhary [facility] 1.2.840.114 350.1.13.10 4.2.7.2.[id number] [facility] 2019-05-04 15:07:01 2019-05-04 15:22:01 Network Operations Center Engineer Visit 1, Adc Lab Kory Cruz [facility] 1.2.840.114 350.1.13.10 4.2.7.2.[id number] [facility] 2019-05-04 12:48:00 2019-05-04 14:57:00 Hospital Encounter Kory Cruz [facility] 1.2.840.114 350.1.13.10 4.2.7.2.[id number] [facility] 2019-05-04 00:00:00 2019-05-04 00:00:00 Telephone Josy Chaudhary [facility] 1.2.840.114 350.1.13.10 4.2.7.2.[id number] [facility] 2019-05-04 00:00:00 2019-05-04 00:00:00 Orders Only Doctor Unassigned, Aquilla [facility] 1.2.840.114 350.1.13.10 4.2.7.2.[id number] [facility] 2019-04-30 00:00:00 2019-04-30 00:00:00 Case Management Josy Chaudhary [facility] 1.2.840.114 350.1.13.10 4.2.7.2.[id number] [facility] 2019-04-29 15:40:17 2019-04-29 16:18:51 Routine Visit Kory Cruz [facility] [id number] [facility] Results Test Description Test Time Test Comments Results Result Co mments Source [facility] HospitalRHO (D) IMMUNE [id number] 16:36:33* Test Item Value Reference Range Interpretation Comme nts RHIG CANDIDATE? (test code = 5188) No- see comment Patient is not a candidate for RhIg- Patient is Rh Positive.Performed at [facility] Laboratory Services - ADC Blood [address] [place] [id number] Free: [phone] No. [id number] [facility] HospitalHepatitis B Surface [id number] 12:56:12 * Test Item Value Reference Range Interpretation Comme nts HBsAg Semi-Quantitative (fredy t code = 5195-3) 0.10 Negative [facility] HospitalHIV 1/2 Ag-Ab with [id number] 09:08:51* Test Item Value Reference Range Interpretation Comme nts HIV Semi-quantitative (test code = 66422-8) 0.18 Negative TIERRA (test code = TIERRA) Non-reactive for HIV-1 antigen and HIV-1/HIV-2 antibodies. ?No laboratory evidence of HIV infection. ?Repeat in 2-4 weeks if acute HIV infection is suspected. [facility] HospitalCentral Neuraxial [id number] 09:00:00 Xenia Angel MD ? ? 09/25/2023 ?3:43 AM Central Neuraxial Block Date/Time: 09/25/2023 3:00 AM Performed by: Xenia Angel MDAuthorized by: Xenia Angel MD ?Patient Location: OBEnd Time: 09/25/2023 3:40 AMReason for Block: OB request, Patient request and Labor analgesiaStaff: ?Anesthesiologist: Xenia Angel MD ?Performed by: anesthesiologistPreanesthetic Checklist: patient identified, IV checked, risks and benefits explained, monitors and equipment checked, timeout performed, ob surgical consent/approval, pre-op evaluation, surgical consent, site marked, anesthesia consent, OB/surgical consent verified, ob/surgical consent verified and ob/surgical consent approvalProcedure: ?Type of Neuraxial: Epidural ?Epidural Description: 1st attempt ? Sterility Prep cap, drape, gloves, hand hygiene and mask ? ?Sedation Level no sedation ?Patient Position: sitting ?Prep: Betadine and patient draped ? ?Monitoring: heart rate, continuous pulse ox, heart rate / toco and NIBP ?Location: lumbar (1-5) ?Lumbar: L2-L3 ?Approach: midline ? ?Technique: SUJEY air and catheter ?Guidance with: landmark technique}Epidural/Spinal Lima and/or Catheter: ?Epidural/Spinal Kit: Anaun ?Needle Type: Tuohy ?Needle Gauge: 17 G ?Needle Length: 3.5 in (8.89 cm) ?Needle Insertion Depth: 7 ?Catheter Type: multiport ? ?Catheter Size: 19 G ? ?Catheter at Skin Depth: 12 ?Number of Attempts: 2 ?Test Dose: lidocaine 1.5% with epinephrine 1-to-200,000 and negative ? ?Dose: 3cc ? ?Catheter Securement Method: Tegaderm, surgical tape and clear occlusive dressingAssessment: ?Sensory Level: above T10 ?Block Outcome: successful block, no apparent complications, pain relieved,patient tolerated procedure well, patient satisfied, patient comfortable, positive pain relief, appropriate motor block, appropriate sensory block and pain improved ? ?Procedure Assessment: patient tolerated procedure well with no complicationsNotes: ? Smooth and atraumatic, (+) Local, (+) STF. Several attempts through same injection site, not tolerated well by patient due to difficulty with positioning and painful contractions. She requests recheck prior to proceeding. Second attempt after 50 mcg fentanyl IV. SIngle pass, catheter threaded easily, negative aspiration, negative test dose. Secured with mastisol then tegaderm and tape. No apparent complications.[facility] HospitalType and Screen - ONCE [id number] 08:11:00* Test Item Value Reference Range Interpretation Comme nts ABO & RH (test code = 20) O Positive IAT (test code = 1185) Negative [facility] HospitalPOCT Urinalysis w/o Specific [id number] 22:26:00* Test Item Value Reference Range Interpretation Comme nts POCT PH U (test code = 3254) n/a 5-8 POCT U LEUK EST (test code = 3263) n/a Negative - Negative POCT U NIT (test code = 3262) n/a Negative - Negati ve POCT U PROT (test code = 3259) negative Negative - Negat cristy POCT U GLU (test code = 3256) negative Negative - Negati ve POCT U KETONE (test code = 3258) n/a Negative - Neg ative POCT U BLD (test code = 3257) n/a Negative - Negati ve [facility] HospitalComp. Metabolic Panel (40584)2023-09-16 10:09:50* Test Item Value Reference Range Interpretation Comme nts NA (test code = 0949063466) 135 mmol/L 135-145 K (test code = 1520754488) 3.6 mmol/L 3.5-5.0 CL (test code = 6484037804) 105 mmol/L 98-108 CO2 TOTAL (test code = 0065612828) 25 mmol/L 23-31 AGAP (test code = 1513663533) 5 2-16 BUN (test code = 2054998804) 4 mg/dL 7-23 L GLUCOSE (test code = 3831548457) 88 mg/dL 70-110 CREATININE (test code = 8448483777) 0.49 mg/dL 0.50-1.04 L TOTAL BILI (test code = 8944145790) 1.1 mg/dL 0.1-1.1 CALCIUM (test code = 9380275087) 8.6 mg/dL 8.6-10.6 T PROTEIN (test code = 8624043296) 6.7 g/dL 6.3-8.2 ALBUMIN (test code = 6098036709) 3.3 g/dL 3.5-5.0 L ALK PHOS (test code = 5258289536) 131 U/L 34-122 H ALTv (test code = 1742-6) 17 U/L 5-35 AST(SGOT) (test code = 6423037247) 25 U/L 13-40 eGFR (test code = 30076-3) 135.2 mL/min/1.73m2 CKD-EPI eGFR (2020). Assuming creatinine has been stable day-to-day for at least three months, the eGFR indicates Category G1 (>= 90 mL/min/1.73 m2) Lab Interpretation (test code = 75585-1) Abnormal [facility] with [id number] 09:36:47* Test Item Value Reference Range Interpretation Comme nts WBC (test code = 6690-2) 6.44 See_Comment [Automated [employer]] The system which generated this result transmitted reference range: 4.30 - 11.10 10*3/?L. The reference range was not used to interpret this result as normal/abnormal. RBC (test code = 789-8) 3.72 See_Comment L [Automated [employer] ge] The system which generated this result transmitted reference range: 3.93 - 5.25 10*6/?L. The reference range was not used to interpret this result as normal/abnormal. HGB (test code = 718-7) 8.0 g/dL 11.6-15.0 L HCT (test code = 4544-3) 27.4 % 35.7-45.2 L MCV (test code = 787-2) 73.7 fL 80.6-95.5 L MCH (test code = 785-6) 21.5 pg 25.9-32.8 L MCHC (test code = 786-4) 29.2 g/dL 31.6-35.1 L RDW-SD (test code = 44522-2) 47.0 fL 39.0-49.9 RDW-CV (test code = 788-0) 17.6 % 12.0-15.5 H PLT (test code = 777-3) 184 See_Comment [Automated messa ge] The system which generated this result transmitted reference range: 166 - 358 10*3/?L. The reference range was not used to interpret this result as normal/abnormal. MPV (test code = 02493-6) 10.1 fL 9.5-12.9 NRBC/100 WBC (test code = 7364356091) 0.0 See_Comment [Automated [employer] ssage] The system which generated this result transmitted reference range: 0.0 - 10.0 /100 WBCs. The reference range was not used to interpret this result as normal/abnormal. NRBC x10^3 (test code = 9412850786) See_Comment [Automated messa ge] The system which generated this result transmitted reference range: 10*3/?L. The reference range was not used to interpret this result as normal/abnormal. GRAN MAT (NEUT) % (test code = 770-8) 66.7 % IMM GRAN % (test code = 0419138248) 0.80 % LYMPH % (test code = 736-9) 24.1 % MONO % (test code = 5905-5) 6.5 % EOS % (test code = 713-8) 1.6 % BASO % (test code = 706-2) 0.3 % GRAN MAT x10^3(ANC) (test code = 0264613196) 4.30 10*3/uL 1.88-7.09 IMM GRAN x10^3 (test code = 0820641918) 0.05 10*3/uL 0.00-0.06 LYMPH x10^3 (test code = 731-0) 1.55 10*3/uL 1.32-3.29 MONO x10^3 (test code = 742-7) 0.42 10*3/uL 0.33-0.92 EOS x10^3 (test code = 711-2) 0.10 10*3/uL 0.03-0.39 BASO x10^3 (test code = 704-7) 0.01-0.07 Lab Interpretation (test code = 92002-6) Abnormal [facility] Urinalysis w/o Specific [id number] 22:18:00* Test Item Value Reference Range Interpretation Comme nts POCT PH U (test code = 3254) n/a 5-8 POCT U LEUK EST (test code = 3263) n/a Negative - Negative POCT U NIT (test code = 3262) n/a Negative - Negati ve POCT U PROT (test code = 3259) negative Negative - Negat cristy POCT U GLU (test code = 3256) negative Negative - Negati ve POCT U KETONE (test code = 3258) n/a Negative - Neg ative POCT U BLD (test code = 3257) n/a Negative - Negati ve [facility] URINALYSIS W/O SPECIFIC [id number] 17:06:00* Test Item Value Reference Range Interpretation Comme nts POCT PH U (test code = 3254) n/a 5-8 POCT U LEUK EST (test code = 3263) n/a Negative - Negative POCT U NIT (test code = 3262) n/a Negative - Negati ve POCT U PROT (test code = 3259) Negative Negative - Negat cristy POCT U GLU (test code = 3256) Normal Negative - Negati ve POCT U KETONE (test code = 3258) n/a Negative - Neg ative POCT U BLD (test code = 3257) n/a Negative - Negati ve [facility] HospitalVZV ANTIBODY [id number] 15:22:41* Test Item Value Reference Range Interpretation Comme [facility] VZV IgG antibody (test code = 31231-1) Negative Negative TIERRA (test code = TIERRA) Positive - Indicat es the patient was exposed to VZV through infection or vaccination.Negative - Indicates the patient could be susceptible to VZV infection.Equivocal - A second specimen should be sent for testing. [facility] HospitalRUBELLA SCREEN [id number] 15:22:41* Test Item Value Reference Range Interpretation Comme [facility] Rubella screen IgG (test code = 4192733096) Positive Negative TIERRA (test code = TIERRA) Positive - Indicat es the patient was exposed to Rubella through infection or vaccination.Negative - Indicates the patient could be susceptible to Rubella infection.Equivocal - A second specimen should be sent. [facility] HospitalSYPHILIS [id number] 15:21:40* Test Item Value Reference Range Interpretation Comme [facility] Syphilis IgG/IgM (test code = 71743-8) Non-reactive Non-reactive TIERRA (test code = TIERRA) Non-reactive - No serologic evidence of T. pallidum infection. Cannot exclude incubating or early syphilis. Submit a second specimen in 2-4 weeks if syphilis is clinically suspected. Equivocal - Further testing to follow. Reactive - Further testing to follow. Lab Interpretation (test code = 16075-6) Normal [facility] GLUCOSE (AUTOMATED)2023-08-22 01:48:28* Test Item Value Reference Range Interpretation Comme nts POCT GLU (test code = 7739809489) 133 mg/dL 70-110 H Lab Interpretation (test cod e = 83640-6) Abnormal [facility] HospitalTransthoracic echo (TTE)2023-08-21 20:30:27* Test Item Value Reference Range Interpretation Comme nts Height (test code = 8959735423) 65 in Weight (test code = 1695856461) 219 lbs Systolic BP (test code = 5444241149) 106 mmHg Diastolic BP (test code = 2766550252) 60 mmHg Heart Rate (test code = 7980988938) 90 bpm LVOT stroke volume (test code = 8051885379) 55.30 cm3 EF(Teich) (test code = 4626035929) 74.90 % LVIDD (test code = 1449908255) 5.20 cm LVIDS (test code = 7238031590) 2.90 cm Left Ventricular End Systolic Volume by Teichholz Method (test code = 4099630) 32.2 mL Left Ventricular End Diastolic Volume by Teichholz Method (test code = 5740698) 128.3 mL IVS (test code = 0063723420) 0.66 cm LVPWD (test code = 3172263936) 1.10 cm LVOT diameter (test code = 4700848485) 1.86 cm LVOT area (test code = 3294265216) 2.70 cm2 FS (test code = 3505422761) 44 % MV Peak E Lakshmi (test code = 6802310538) 97.3 cm/s MV Peak A Lakshmi (test code = 0226662453) 80.6 cm/s E/A ratio (test code = 3650192923) 1.21 ratio E wave decelartion time (test code = 0762071688) 0.19 s MV E/e' septal (test code = 4374938394) 11.6 cm/s LA Volume Index (BP) (test code = 7620796960) 37.1 mL/m2 LA volume (BP) (test code = 7070084348) 76.3 mL LVOT peak lakshmi (test code = 4568039050) 108.4 cm/s LVOT mn grad (test code = 5099185216) 2.5 mmHg BSA (test code = 7143168166) 2.06 m2 LA size (test code = 0542147272) 4.0 cm LAV(MOD-sp2) (test code = 9580505871) 54.20 mL LAV(MOD-sp4) (test code = 8270726921) 82.70 mL Tapse (test code = 5876343901) 2.35 cm AV LVOT peak gradient (test code = 2870692778) 4.7 mmHg LVOT peak VTI (test code = 9273460995) 20.3 cm LV V1 mean (test code = 8788304450) 74.60 cm/s MV Prop V (test code = 3792051015) 70.10 cm/s Ao root diam (test code = 5404662739) 3.60 cm Aortic root (test code = 9930644389) 3.6 cm Ao root annulus (test code = 3916963342) 3.6 cm PW (test code = 9009750239) 1.10 cm 0.6-1.1 EF - 2D (test code = 71178611) 74.90 % Interventricular Septum Diastolic Thickness by 2D (test code = 4249719) 0.66 cm Aortic valve mean velocity (test code = 1924820883) 123.5 cm/s Ao peak lakshmi (test code = 0524199862) 177.8 cm/s Ao VTI (test code = 2415829422) 34.6 cm AV area by cont VTI (test code = 2067808909) 1.6 cm2 AV area peak lakshmi (test code = 7558664764) 1.7 cm2 Ao max PG (test code = 1735694939) 12.60 mm[Hg] AV peak gradient (test code = 4186304153) 12.6 mmHg AV valve area (test code = 9392856605) 1.60 cm2 AV mean gradient (test code = 5146919159) 6.5 mmHg MV mean gradient (test code = 0137826260) 1.45 mmHg MV peak gradient (test code = 4661646421) 3.0 mmHg MV pk lakshmi (test code = 7956738418) 86.1 cm/s MV valve area by continuity eq (test code = 2612269540) 2.70 cm2 MV VTI (test code = 7300618240) 20.5 cm MV V2 mean (test code = 2863302298) 56.30 cm/s Radiology Study observation (narrative) (test code = 54841-3) TIERRA (test code = TIERRA) ?Left?Ventricle: Left ventricle size is normal. Increased wall thickness. There is concentric remodeling. Normal wall motion. Hyperdynamic systolic function with a visually estimated EF of 65 - 70%. Normal diastolic function. ?Right?Ventricle: Right ventricle size is normal. Normal systolic function. TAPSE is 2.35 cm. Roscoe Cuellar, [facility] Medicine FellowUnYork General Hospital VentricleLeft ventricle size is normal. Increased wall thickness. There is concentric remodeling. Normal wall motion. Hyperdynamic systolic function with a visually estimated EF of 65 - 70%. Normal diastolic function.Right VentricleRight ventricle size is normal. Normal systolic function. TAPSE is 2.35 cm.Left AtriumLeft atrium is mildly dilated. Left atrium volume index is 37.1 mL/m2.Right AtriumRight atrium size is normal.IVC/SVCIVC was not well visualized.Mitral ValveMitral valve structure is normal. Trace transvalvular regurgitation. No stenosis.Tricuspid ValveTricuspid valve is normal size and function. Trace transvalvular regurgitation. Insufficient tricuspid regurgitation jet to estimate RVSP . No stenosis.Aortic ValveAortic valve structure is normal. Trace transvalvular regurgitation. No hemodynamically significant .Pulmonic ValveValve structure is normal. Trace transvalvular regurgitation. No stenosis.Ascending AortaNormal sized aorta and aortic root.PericardiumNo pericardial effusion.Study DetailsStudy quality was adequate. A complete echocardiogram was performed using 2D, color flow Doppler and spectral Doppler. The apical, parasternal and subcostal views were obtained. [facility] HospitalTHYROID STIMULATING [id number] 17:48:00 * Test Item Value Reference Range Interpretation Comme nts TSH (test code = 7407160368) 0.51 See_Comment [Automated [employer]] The system which generated this result transmitted reference range: 0.45 - 4.70 mIU/L. The reference range was not used to interpret this result as normal/abnormal. Lab Interpretation (test code = 08033-5) Normal [facility] METABOLIC PANEL (NA, K, CL, CO2, GLUCOSE, BUN, CREATININE, CA)2023-08-21 17:14:33* Test Item Value Reference Range Interpretation Comme nts NA (test code = 6702763311) 132 mmol/L 135-145 L K (test code = 5298620772) 4.0 mmol/L 3.5-5.0 CL (test code = 3572920690) 106 mmol/L 98-108 CO2 TOTAL (test code = 0851562137) 17 mmol/L 23-31 L AGAP (test code = 3593354373) 9 2-16 BUN (test code = 6512429124) 5 mg/dL 7-23 L GLUCOSE (test code = 0272843856) 75 mg/dL 70-110 CREATININE (test code = 8254835116) 0.44 mg/dL 0.50-1.04 L CALCIUM (test code = 7011316192) 8.4 mg/dL 8.6-10.6 L eGFR (test code = 40672-3) 138.7 mL/min/1.73m2 CKD-EPI eGFR (2020). Assuming creatinine has been stable day-to-day for at least three months, the eGFR indicates Category G1 (>= 90 mL/min/1.73 m2) Lab Interpretation (test code = 91180-4) Abnormal [facility] HospitalHIV 1/2 AG-AB WITH [id number] 15:05:53* Test Item Value Reference Range Interpretation Comme [facility] HIV Semi-quantitative (test code = 58309-7) 0.11 Negative TIERRA (test code = TIERRA) Non-reactive for HIV-1 antigen and HIV-1/HIV-2 antibodies. ?No laboratory evidence of HIV infection. ?Repeat in 2-4 weeks if acute HIV infection is suspected. [facility] HospitalHEPATITIS B SURFACE [id number] 15:01:33 * Test Item Value Reference Range Interpretation Comme [facility] HBsAg Semi-Quantitative (fredy t code = 5195-3) 0.07 Negative [facility] HospitalGLYCOSYLATED HEMOGLOBIN (A1C)2023-08-21 14:26:03* Test Item Value Reference Range Interpretation Comme [facility] HGB A1C (test code = 4548-4) 5.2 % 4.0-5.7 TIERRA (test code = TIERRA) Reference RangesNormal: <5.7%Prediabetes: 5.7 - 6.4%Diabetes: > 6.5% Lab Interpretation (test code = 95817-1) Normal [facility] HospitalType and Screen - ONCE [id number] 13:34:00* Test Item Value Reference Range Interpretation Comme nts ABO & RH (test code = 20) O POSITIVE IAT (test code = 1185) Negative [facility] HospitalProthrombin Time / [id number] 02:05:48* Test Item Value Reference Range Interpretation Comme nts PROTIME PATIENT (test code = 5964-2) 13.0 See_Comment [Automated messa ge] The system which generated this result transmitted reference range: 12.0 - 14.7 Seconds. The reference range was not used to interpret this result as normal/abnormal. INR (test code = 6301-6) 1.0 Normal INR <1.1; Warfarin Therapeutic range 2.0 to 3.0 or 2.5 to 3.5, depending upon the indications. Lab Interpretation (test code = 65696-9) Normal [facility] HospitalaPTT2023-11-30 02:05:48* Test Item Value Reference Range Interpretation Comme nts APTT Patient (test code = 3173-2) 27 See_Comment [Automated message] The system which generated this result transmitted reference range: 23 - 38 Seconds. The reference range was not used to interpret this result as normal/abnormal. TIERRA (test code = TIERRA) The [facility] patient population mean normal value for aPTT is 30 seconds. Lab Interpretation (test code = 71084-2) Normal [facility] HospitalCBC WITH [id number] 01:28:43* Test Item Value Reference Range Interpretation Comme nts WBC (test code = 6690-2) 9.07 See_Comment [Automated messa ge] The system which generated this result transmitted reference range: 4.30 - 11.10 10*3/?L. The reference range was not used to interpret this result as normal/abnormal. RBC (test code = 789-8) 3.76 See_Comment L [Automated messa ge] The system which generated this result transmitted reference range: 3.93 - 5.25 10*6/?L. The reference range was not used to interpret this result as normal/abnormal. HGB (test code = 718-7) 8.6 g/dL 11.6-15.0 L HCT (test code = 4544-3) 28.4 % 35.7-45.2 L MCV (test code = 787-2) 75.5 fL 80.6-95.5 L MCH (test code = 785-6) 22.9 pg 25.9-32.8 L MCHC (test code = 786-4) 30.3 g/dL 31.6-35.1 L RDW-SD (test code = 87894-5) 45.6 fL 39.0-49.9 RDW-CV (test code = 788-0) 17.0 % 12.0-15.5 H PLT (test code = 777-3) 228 See_Comment [Automated [employer] ge] The system which generated this result transmitted reference range: 166 - 358 10*3/?L. The reference range was not used to interpret this result as normal/abnormal. MPV (test code = 40414-1) 10.4 fL 9.5-12.9 NRBC/100 WBC (test code = 6262159369) 0.2 See_Comment [Automated [email or web address] ssage] The system which generated this result transmitted reference range: 0.0 - 10.0 /100 WBCs. The reference range was not used to interpret this result as normal/abnormal. NRBC x10^3 (test code = 6449237055) 0.02 See_Comment [Automated [employer]] The system which generated this result transmitted reference range: 10*3/?L. The reference range was not used to interpret this result as normal/abnormal. GRAN MAT (NEUT) % (test code = 770-8) 75.4 % IMM GRAN % (test code = 7637729101) 0.90 % LYMPH % (test code = 736-9) 17.6 % MONO % (test code = 5905-5) 4.9 % EOS % (test code = 713-8) 0.9 % BASO % (test code = 706-2) 0.3 % GRAN MAT x10^3(ANC) (test code = 8889771616) 6.84 10*3/uL 1.88-7.09 IMM GRAN x10^3 (test code = 5812862106) 0.08 10*3/uL 0.00-0.06 H LYMPH x10^3 (test code = 731-0) 1.60 10*3/uL 1.32-3.29 MONO x10^3 (test code = 742-7) 0.44 10*3/uL 0.33-0.92 EOS x10^3 (test code = 711-2) 0.08 10*3/uL 0.03-0.39 BASO x10^3 (test code = 704-7) 0.03 10*3/uL 0.01-0.07 Lab Interpretation (test code = 65993-1) Abnormal [facility] HospitalType [facility] Screen - ONCE [id number] 01:24:00* Test Item Value Reference Range Interpretation Comme nts ABO & RH (test code = 20) O Positive IAT (test code = 1185) Negative [facility] HospitalPOCT URINALYSIS W/O SPECIFIC [id number] 16:23:00* Test Item Value Reference Range Interpretation Comme nts POCT PH U (test code = 3254) n/a 5-8 POCT U LEUK EST (test code = 3263) n/a Negative - Negative POCT U NIT (test code = 3262) n/a Negative - Negati ve POCT U PROT (test code = 3259) TRACE Negative - Negat cristy POCT U GLU (test code = 3256) negative Negative - Negati ve POCT U KETONE (test code = 3258) n/a Negative - Neg ative POCT U BLD (test code = 3257) n/a Negative - Negati ve [facility] HospitalPOCT URINALYSIS W SPECIFIC [id number] 13:44:00* Test Item Value Reference Range Interpretation Comme nts POCT U SP GRAV (test code = 3255) . 1.005-1.025 POCT PH U (test code = 3254) 8 mg/dl 5-8 POCT U LEUK EST (test code = 3263) Neg Negative - Negative POCT U NIT (test code = 3262) Neg Negative - Negati ve POCT U PROT (test code = 3259) Trace Negative - Negat cristy POCT U GLU (test code = 3256) Neg Negative - Negati ve POCT U KETONE (test code = 3258) None Negative - Neg ative POCT U UROBILI (test code = 3260) . 0.2-1 POCT U BILI (test code = 3261) . Negative - Negat cristy POCT U BLD (test code = 3257) Trace Negative - Negati ve POCT U COLOR (test code = 3266) . POCT U APPEAR (test code = 3267) [facility] URINALYSIS W SPECIFIC [id number] 18:00:00* Test Item Value Reference Range Interpretation Comme nts POCT U SP GRAV (test code = 3255) . 1.005-1.025 POCT PH U (test code = 3254) 8 mg/dl 5-8 POCT U LEUK EST (test code = 3263) Trace Negative - Negative POCT U NIT (test code = 3262) Neg Negative - Negati ve POCT U PROT (test code = 3259) Trace Negative - Negat cristy POCT U GLU (test code = 3256) Neg Negative - Negati ve POCT U KETONE (test code = 3258) None Negative - Neg ative POCT U UROBILI (test code = 3260) . 0.2-1 POCT U BILI (test code = 3261) . Negative - Negat cristy POCT U BLD (test code = 3257) Trace Negative - Negati ve POCT U COLOR (test code = 3266) POCT U APPEAR (test code = 3267) [facility] URINALYSIS W/O SPECIFIC [id number] 18:03:00* Test Item Value Reference Range Interpretation Comme nts POCT PH U (test code = 3254) 8 mg/dl 5-8 POCT U LEUK EST (test code = 3263) Trace Negative - Negative POCT U NIT (test code = 3262) Neg Negative - Negati ve POCT U PROT (test code = 3259) Trace Negative - Negat cristy POCT U GLU (test code = 3256) Neg Negative - Negati ve POCT U KETONE (test code = 3258) 2+ Negative - Neg ative POCT U BLD (test code = 3257) Trace Negative - Negati ve [facility] [id number] 18:02:00* Test Item Value Reference Range Interpretation Comme nts POCT PREG (test code = 1605) Positive On board controls acceptable with C Line (test code = 3574) Yes POCT PREG LOT # (test code = 3575) POCT PREG TEST DATE ( test code = 3576) [facility] HospitalCOM. METABOLIC PANEL (72853)2022-01-17 03:31:19* Test Item Value Reference Range Interpretation Comme nts NA (test code = 0539533241) 139 mmol/L 135-145 K (test code = 3181359810) 4.2 mmol/L 3.5-5.0 CL (test code = 6628057769) 105 mmol/L 98-108 CO2 TOTAL (test code = 7096367928) 23 mmol/L 23-31 AGAP (test code = 0263840970) 2-16 BUN (test code = 4871838337) 9 mg/dL 7-23 GLUCOSE (test code = 9236659015) 94 mg/dL 70-110 CREATININE (test code = 7019280819) 0.61 mg/dL 0.50-1.04 TOTAL BILI (test code = 1674504994) 0.9 mg/dL 0.1-1.1 CALCIUM (test code = 1999775465) 9.4 mg/dL 8.6-10.6 T PROTEIN (test code = 2490572845) 8.3 g/dL 6.3-8.2 H ALBUMIN (test code = 3866322176) 4.7 g/dL 3.5-5.0 ALK PHOS (test code = 4201114478) 87 U/L 34-122 ALTv (test code = 1742-6) 11 U/L 5-35 AST(SGOT) (test code = 0274315314) 19 U/L 13-40 eGFR (test code = 0029346556) mL/min/1.73m2 TIERRA (test code = TIERRA) Association [...] imaging tests). Lab Interpretation (test code = 05019-0) Abnormal [facility] HospitalLIPASE2022-04-28 03:31:19* Test Item Value Reference Range Interpretation Comme nts LIPASE (test code = 9093093508) 68 U/L 0-220 Lab Interpretation (test cod e = 17603-5) Normal [facility] WITH [id number] 03:28:58* Test Item Value Reference Range Interpretation Comme nts WBC (test code = 6690-2) See_Comment [Automated [employer]] The system which generated this result transmitted reference range: 4.30 - 11.10 10*3/?L. The reference range was not used to interpret this result as normal/abnormal. RBC (test code = 789-8) See_Comment [Automated [employer]] The system which generated this result transmitted reference range: 3.93 - 5.25 10*6/?L. The reference range was not used to interpret this result as normal/abnormal. HGB (test code = 718-7) 12.4 g/dL 11.6-15.0 HCT (test code = 4544-3) 38.9 % 35.7-45.2 MCV (test code = 787-2) 79.6 fL 80.6-95.5 L MCH (test code = 785-6) 25.4 pg 25.9-32.8 L MCHC (test code = 786-4) 31.9 g/dL 31.6-35.1 RDW-SD (test code = 58886-0) 43.8 fL 39.0-49.9 RDW-CV (test code = 788-0) 15.2 % 12.0-15.5 PLT (test code = 777-3) See_Comment [Automated messa ge] The system which generated this result transmitted reference range: 166 - 358 10*3/?L. The reference range was not used to interpret this result as normal/abnormal. MPV (test code = 95297-4) 11.3 fL 9.5-12.9 NRBC/100 WBC (test code = 3856057594) See_Comment [Automated [email or web address]] The system which generated this result transmitted reference range: 0.0 - 10.0 /100 WBCs. The reference range was not used to interpret this result as normal/abnormal. NRBC x10^3 (test code = 2586133081) <0.01 See_Comment [Automated messa ge] The system which generated this result transmitted reference range: 10*3/?L. The reference range was not used to interpret this result as normal/abnormal. GRAN MAT (NEUT) % (test code = 770-8) 71.7 % IMM GRAN % (test code = 1581808869) 0.20 % LYMPH % (test code = 736-9) 22.5 % MONO % (test code = 5905-5) 4.2 % EOS % (test code = 713-8) 0.8 % BASO % (test code = 706-2) 0.6 % GRAN MAT x10^3(ANC)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
--- NOTE | 2023-12-06 15:24 | EDPHYS ---
Physician Documentation [facility] Name: Arina Valdes Age: 23 yrs Sex: Female : 2000 Arrival Date: 12/06/2023 Time: 14:57 Bed 15 Private MD: ED Physician Vik Johnson HPI: 12/05 15:35 This 23 yrs old Female presents to ER via Ambulatory with complaints of sb4 Toothache. 15:35 Patient states that her wisdom teeth have been erupting for some time, however she does sb4 not have insurance and cannot see a dentist. She states that her left lower wisdom teeth has been causing her a lot of pain in her mouth, ear, head, jaw. She has been taking Tylenol Motrin without significant relief. States that she had a fever last night. 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 - Social history:: Smoking status: Reported history of juuling and/or vaping. ROS: 15:35 Cardiovascular: Negative for chest pain, palpitations, and edema, sb4 15:35 Constitutional: Positive for fever, 15:35 ENT: Positive for dental pain, ear pain, 15:35 All other systems are negative, Exam: 15:35 Constitutional: This is a well developed, well nourished patient who is awake, alert, sb4 and in no acute distress. Head/Face: Normocephalic, atraumatic. Eyes: Extra-ocular motions intact. Periorbital areas with no swelling, redness, or edema. ENT: Mucous membranes moist. Cardiovascular: Regular rate and rhythm with a normal S1 and S2. Respiratory: Lungs have equal breath sounds bilaterally, clear to auscultation and percussion. No rales, rhonchi or wheezes noted. No increased work of breathing, no retractions or nasal flaring. Abdomen/GI: Soft, non-tender, no distension. Skin: Warm, dry with normal turgor. Normal color with no rashes, no lesions, and no evidence of cellulitis. MS/ Extremity: Pulses equal, no cyanosis. Neurovascular intact. Full, normal range of motion. Neuro: Awake and alert, GCS 15, oriented to person, place, time, and situation. Motor strength 5/5 in all extremities. Sensory grossly intact. 15:35 ENT: Dental exam: cellulitis, that is moderate, specifically in the lower left third molar (#17), gum swelling, that is moderate, specifically in the lower left third molar (#17), pain, Vital Signs: 15:13 Pulse 80; Resp 18 S; Temp 97.5(TE); Pulse Ox 100% on R/A; Weight 88.45 kg (R); Height 5 aa5 ft. 5 in. (R); 15:30 BP 111 / 75; Pulse 72; Resp 16; Pulse Ox 97% on R/A; me1 15:48 Pain 5/10; me1 15:13 Body Mass Index 32.45 (88.45 kg, 165.1 cm) aa5 15:48 Pain Scale: Adult me1 MDM: 15:13 Patient medically screened. sb4 15:35 Differential diagnosis: dental caries, gingivitis, dental abscess. Data reviewed: vital sb4 signs, nurses notes, and as a result, I will discharge patient. Counseling: I had a detailed discussion with the patient and/or guardian regarding the historical points, exam findings, and any diagnostic results supporting the discharge/admit diagnosis, the need for outpatient follow up, a dentist, to return to the emergency department if symptoms worsen or persist or if there are any questions or concerns that arise at home. Administered Medications: 15:37 Drug: Amoxicillin-Clavulanate PO 875 mg PO once Route: PO; me1 15:48 Follow up: Response: No adverse reaction me1 15:37 Drug: Hydrocodone-Acetaminophen PO (7.5 mg-325 mg) 1 tabs PO once Route: PO; me1 15:48 Follow up: Pain 5/10 Adult; Response: No adverse reaction; Pain is decreased me1 Disposition: 19:12 I agree with the assessment and plan of care. I reviewed the patient's care provided by cp3 Advanced Practice Provider \T\ agree w/ the diagnosis \T\ care plan. I personally saw the pt \T\ performed a substantive portion of the visit, incldng all aspects of the (History/Exam/Medical Decision Making). Disposition Summary: 12/06/23 15:24 Discharge Ordered Notes: Location: Home sb4 Problem: an ongoing problem sb4 Symptoms: have improved sb4 Condition: Stable sb4 Diagnosis - dental infection sb4 Followup: sb4 - With: Asa May DDS - When: 2 - 3 days - Reason: Recheck today's complaints, Re-evaluation by your physician Discharge Instructions: - Discharge Summary Sheet sb4 - Dental Pain, [id number] sb4 Forms: - Thank You Letter sb4 - Antibiotic Education sb4 - Patient Portal Instructions sb4 - Leadership Thank You Letter sb4 Prescriptions: - Amoxicillin 875 mg Oral Tablet - take 1 tablet ORAL route every 12 hours for 10 days; 20 tablet; Refills: 0, sb4 Product Selection Permitted Signatures: Vik Johnson MD MD cp3 Niyah White, RN RN aa5 Alessandra George, PAAlexeyC PAAlexeyC sb4 Agnes Andrea, RN RN me1
--- NOTE | 2023-12-06 15:24 | ER ---
Nurse's Notes [facility] Name: Arina Valdes Age: 23 yrs Sex: Female : 2000 Arrival Date: 12/06/2023 Time: 14:57 Bed 15 Private MD: Diagnosis: dental infection Presentation: 12/05 15:13 Chief complaint: Patient states: toothache that began 2-3 days ago. Coronavirus screen: aa5 At this time, the client does not indicate any symptoms associated with coronavirus-19. Ebola Screen: Patient denies travel to an Ebola-affected area in the 21 days before illness onset. Initial Sepsis Screen: Does the patient meet any 2 criteria? No. Patient's initial sepsis screen is negative. Does the patient have a suspected source of infection? No. Patient's initial sepsis screen is negative. Risk Assessment: Do you want to hurt yourself or someone else? Patient reports no desire to harm self or others. Onset of symptoms was November 2023. 15:13 Acuity: [place] 5 aa5 15:13 Method Of Arrival: Ambulatory aa5 SPIRITUAL ADVISOR: 15:15 LMP N/A - Recent , Not aa5 Historical: - Allergies: 15:14 No Known Allergies; aa5 - PMHx: 15:14 depressive disorder; pre eclampsia; UTI; Anxiety; aa5 - PSHx: 15:14 None; aa5 - Immunization history:: Adult Immunizations unknown. - Social history:: Smoking status: Reported history of juuling and/or vaping. Screenin:39 [facility] ED Fall Risk Assessment (Adult) History of falling in the last 3 months, me1 including since admission No falls in past 3 months (0 pts) Confusion or Disorientation No (0 pts) Intoxicated or Sedated No (0 pts) Impaired Gait No (0 pts) Mobility Assist Device Used No (0 pt) Altered Elimination No (0 pt) Score/Fall Risk Level 0 - 2 = Low Risk Oriented to surroundings, Provided non-skid footwear, Hourly rounding (assess needs \T\ fall precautionary measures) done. Abuse screen: Denies threats or abuse. Nutritional screening: No deficits noted. Tuberculosis screening: No symptoms or risk factors identified. Assessment: 15:39 General: Appears uncomfortable, well groomed, well developed, well nourished, Behavior me1 is calm, cooperative, appropriate for age, Reports toothache on left upper with ear ache. Pain: Complains of pain in lower left third molar (#17) Pain radiates to left ear Pain currently is 7 out of 10 on a pain scale. Quality of pain is described as aching, Pain began 2-3 days ago. Is continuous. Neuro: Level of Consciousness is awake, alert, obeys commands, Oriented to person, place, time, situation, Appropriate for age. Cardiovascular: Capillary refill < 3 seconds Patient's skin is warm and dry. Respiratory: Airway is patent Respiratory effort is even, unlabored, Respiratory pattern is regular, symmetrical. EENT: Reports pain in lower left third molar (#17). Vital Signs: 15:13 Pulse 80; Resp 18 S; Temp 97.5(TE); Pulse Ox 100% on R/A; Weight 88.45 kg (R); Height 5 aa5 ft. 5 in. (R); 15:30 BP 111 / 75; Pulse 72; Resp 16; Pulse Ox 97% on R/A; me1 15:48 Pain 5/10; me1 15:13 Body Mass Index 32.45 (88.45 kg, 165.1 cm) aa5 15:48 Pain Scale: [place] [facility] [place]: 14:59 Patient arrived in ED. im 15:03 Alessandra George PA-C is PHCP. sb4 15:03 Vik Johnson MD is Attending Physician. sb4 15:13 Arm band placed on. aa5 15:14 Triage completed. aa5 15:23 Asa May DDS is Referral Physician. sb4 15:31 Agnes Andrea, CARLOS is Primary Nurse. me1 15:39 Patient has correct armband on for positive identification. Bed in low position. Call co1 light in reach. Side rails up X2. Provided Education on: POC. Verbalized understanding. . 15:39 No provider procedures requiring assistance completed. me1 15:39 Patient did not have IV access during this emergency room visit. co1 Administered Medications: 15:37 Drug: Amoxicillin-Clavulanate PO 875 mg PO once Route: PO; me1 15:48 Follow up: Response: No adverse reaction co1 15:37 Drug: Hydrocodone-Acetaminophen PO (7.5 mg-325 mg) 1 tabs PO once Route: PO; me1 15:48 Follow up: Pain 01/29 Adult; Response: No adverse reaction; Pain is decreased me1 Medication: 15:39 VIS not applicable for this client. me1 Outcome: 15:24 Discharge ordered by . sb4 15:51 Discharged to home ambulatory, with significant other, me1 15:51 Condition: stable 15:51 Discharge instructions given to patient, Instructed on discharge instructions, follow up and referral plans. medication usage, Demonstrated understanding of instructions, follow-up care, medications, Prescriptions given X 1, 15:51 Patient left the ED. me1 Signatures: Niyah White, RN RN aa5 Alessandra George PAIsaías PAAlexeyC sb4 Tricia Mahmood Michelle, RN RN me1
[2023-12-06 16:26] VITALS: BP 111/75; TEMP 97.5; O2SAT 97
== END ==
LOC: ER 14:57
DX: K04.7 Periapical abscess without sinus (principal)
CPT/HCPCS: 99283

== ENCOUNTER 2023-12-21 13:03 | Emergency (ER) | payer OTHER ==
--- OUTSIDE RECORDS SUMMARY | 2023-12-21 13:18 | XMS REPORT | Continuity of Care Document ---
Author Name Unknown Address [address] [facility]. [address] [place] [address] [facility] thconnect Address [address] [facility] [address] [place] [address] Care Team Providers Care Adaptive Physical Education Specialist Name Role Phone Kory Cruz MD Primary Care Physician [phone] Doctor Unassigned, [place] Attending Clinician U Kory Yo MD Attending Clinician [phone] KORY CRUZ Attending Clinician Unavailable Xenia Angel MD Attending Clinician + Agnes Pedraza MD Attending Clinician [phone] ARIELA WILKINSON Attending Clinician ARIELA Dunn Attending Clinician Jose Antonio candelario 2, [facility] Attending Clinician Unavailable MARY AVINA Attending Clinician Unavailable Fabrice KENNEDY, Mary Masters Attending Clinician [phone] ELOY CHAVEZ Attending Clinician Unavaila Nacho Dior DO Attending Clinician [phone] Sheldon KENNEDY, Kristal Phelps Attending Clinician + Eloy Chavez MD Attending Clinician + [phone], [facility] Attending Clinician Unavailrenu Melton MD, Sunita Segura Attending Clinician [phone] Nurse, [facility] Attending Clinician Amanda Krystal Morel CNM Attending Clinician [phone] Sammy RN, Heidi Stinson Attending Clinician Unavaila kam Mendoza WHJENNIFERPHuy Attending Clinician + HUY MENDOZA Attending Clinician Unavail able SHELLEY OCASIO Attending Clinician Unaphu skelton [facility], [facility] Attending Clinician Unavaila kam Daniels MD, Shelley Attending Clinician + KRYSTAL LOW Attending Clinician UnavailLEEROY Carter Attending Clinician Unavailable YVONNE SIDDIQI Attending Clinician Unavailable Yvonne Rodriguez Attending Clinician [phone] Simi DELGADOSWJennifer Attending Clinician UnaBroderick Manning DO Attending Clinician [phone] JOSY CHAUDHARY Attending Clinician Unavailable KRISSY GREEN Attending Clinician Unavailable Josy Chaudhary PA-C Attending Clinician [phone] 1, [facility] Attending Clinician Unavailable ARIELA WILKINSON Admitting Clinician Jose Antonio CRUZ, KORY GIORDANO Admitting Clinician Unavailable Kory Cruz MD Admitting Clinician [phone] MARY AVINA Admitting Clinician Unavailable Mary Avina MD Admitting Clinician [phone] ELOY CHAVEZ Admitting Clinician Unavaila kam Rockwelleco MD, Eloy Ramires Admitting Clinician Payers Payer Name Policy Type Policy Number Effective Date Expirati on Date Source [facility] KRYSTIN [id number] 2023 00:00:00 MEDICAID PENDING PENDING 2023 00:00:00 2023 00:00:00 [place] [id number] 2023 00:00:00 2023 00:00:00 [facility] KIRAN MCCLELLAND [id number] 2018 00:00:00 Problems Condition Name Condition Details Condition Category Status Onset Date Resolution Date Last Treatment Date Treating Clinician Comments Source Normal labor Normal labor Disease Active 09-25 00:00: 00 [facility] Liveborn infant, of [place] , born in hospital by vaginal delivery Liveborn infant, of [place] , born in hospital by vaginal delivery Disease Active 09-25 00:00: 00 [facility] 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 Disease Active 2022-09 00:00: 00 [facility] 37 weeks gestation of 37 weeks gestation of Disease Active 2022-09 00:00: 00 [facility] Drug use complicati ng in third trimester Drug use complicati ng in third trimester Disease Active 2022-09 00:00: 00 [facility] 38 weeks gestation of 38 weeks gestation of Disease Active 2022-09 00:00: 00 [facility] Fall (on) (from) unspecifie d stairs and steps, sequela Fall (on) (from) unspecifie d stairs and steps, sequela Disease Active 2022-09 00:00: 00 [facility] Injury Injury Disease Active 2022-09 00:00: 00 [facility] Fall Fall Disease Active 2022-09 00:00: 00 [facility] High-risk in third trimester High-risk in third trimester Disease Active 2022-09 00:00: 00 [facility] Limited care in third trimester Limited care in third trimester Disease Active 2022-09 00:00: 00 [facility] Cramping affecting , antepartum Cramping affecting , antepartum Disease Active 2022-09 00:00: 00 [facility] 30 weeks gestation of 30 weeks gestation of Disease Active 2022-09 00:00: 00 [facility] 31 weeks gestation of 31 weeks gestation of Disease Active 2022-09 00:00: 00 [facility] uterine contractio ns, antepartum , third trimester uterine contractio ns, antepartum , third trimester Disease Active 2022-09 00:00: 00 [facility] 33 weeks gestation of 33 weeks gestation of Disease Active 2022-09 00:00: 00 [facility] Trichomona l vaginitis during Trichomona l vaginitis during Disease Active 02-14 00:00: 00 [facility] Maternal varicella, non-immune Maternal varicella, non-immune Disease Active 02-12 00:00: 00 [facility] Obesity affecting Obesity affecting Disease Active 02-11 00:00: 00 [facility] Nausea and vomiting during Nausea and vomiting during Disease Active 02-11 00:00: 00 [facility] History of heart murmur in childhood History of heart murmur in childhood Disease Active 02-11 00:00: 00 Overview: Formattin g of this note might be different from the original. Age 12EKG NSR with sinus arrhythmi a. Normal EKG compared to 7. [facility] Family history of autism Family history of autism Disease Active 02-11 00:00: 00 Overview: Formattin g of this note might be different from the original. Patient sister and daughter [facility] Nexplanon insertion Nexplanon insertion Disease Active 2018-09 2-16 00:00: 00 [facility] Nexplanon in place Nexplanon in place Disease Active 2018-09 00:00: 00 [facility] Encounter for female control Encounter for female control Disease Active 2018-09 00:00: 00 [facility] Anemia, antepartum , third trimester Anemia, antepartum , third trimester Disease Active 2018-0912 00:00: 00 [facility] Obesity (BMI 30-39.9) Obesity (BMI 30-39.9) Disease Active 01-04 00:00: 00 [facility] History of depression History of depression Disease Active 01-04 00:00: 00 [facility] History of anxiety and depression History of anxiety and depression Disease Active 01-04 00:00: 00 [facility] Anxiety during Anxiety during Disease Active 01-04 00:00: 00 [facility] Allergies, Adverse Reactions, Alerts Allergy Name Allergy Type Status Severity Reaction(s) Onset Date Inactive Date Treating Clinician Comments Source NO KNOWN ALLERGIE S Drug Class Active [facility] Social History Social Habit Start Date Stop Date Quantity Comments Source ASSERTION 2023-01-10 00:00:00 [facility] History of tobacco use Passive smoker [facility] Gender identity [facility] Sexual orientation [facility] Alcohol intake 2023-10-10 00:00:00 2023-10-10 00:00:00 Current non-drinker of alcohol (finding) [facility] Tobacco Comment 2023-02-11 00:00:00 2023-02-11 00:00:00 fiance smokes outside [facility] Tobacco use and exposure 2023-02-11 00:00:00 2023-02-11 00:00:00 Smokeless tobacco non-user [facility] History of Social function 2023-02-11 00:00:00 2023-02-11 00:00:00 [facility] Exposure to SARS-CoV-2 (event) 2022-01-06 00:00:00 2022-01-16 20:33:00 Unable to assess [facility] Sex Assigned At 2000 00:00:00 2000 00:00:00 [facility] Smoking Status Start Date Stop Date Source Never smoked tobacco [facility] Medications Ordered Medication Name Filled Medication Name Start Date Stop Date Current Medication? Ordering Clinician Indication Dosage Frequency Signature (SIG) Comments Components Source SERTraline (ZOLOFT) 50 mg tablet 10-17 00:00: 00 Yes [id number] 50mg Take 1 tablet by mouth in the morning. [facility] SERTraline (ZOLOFT) 50 mg tablet 0 10-17 00:00: 00 Yes [id number] 50mg Take 1 tablet by mouth in the morning. [facility] SERTraline (ZOLOFT) 50 mg tablet 0 10-17 00:00: 00 Yes [id number] 50mg Take 1 tablet by mouth in the morning. [facility] SERTraline (ZOLOFT) 50 mg tablet 0 10-17 00:00: 00 Yes [id number] 50mg Take 1 tablet by mouth in the morning. [facility] SERTraline (ZOLOFT) 50 mg tablet 0 10-17 00:00: 00 Yes [id number] 50mg Take 1 tablet by mouth in the morning. [facility] busPIRone 10 mg tablet 0 10-10 00:00: 00 Yes [id number] 10mg Take 1 tablet by mouth in the morning and 1 tablet in the evening. [facility] busPIRone 10 mg tablet 0 10-10 00:00: 00 Yes [id number] 10mg Take 1 tablet by mouth in the morning and 1 tablet in the evening. [facility] busPIRone 10 mg tablet 2023-0 10-10 00:00: 00 Yes [id number] 10mg Take 1 tablet by mouth in the morning and 1 tablet in the evening. [facility] busPIRone 10 mg tablet 2023-0 10-10 00:00: 00 Yes [id number] 10mg Take 1 tablet by mouth in the morning and 1 tablet in the evening. [facility] busPIRone 10 mg tablet 2023-0 10-10 00:00: 00 Yes [id number] 10mg Take 1 tablet by mouth in the morning and 1 tablet in the evening. [facility] SERTraline (ZOLOFT) 25 mg tablet 10-10 00:00: 00 10-18 05:59 :00 Yes [id number] 25mg Take 1 tablet by mouth in the morning for 7 days. [facility] vitamin w/FA tablet 09-26 00:00: 00 Yes [id number] 1{tbl} Take 1 tablet by mouth in the morning. [facility] docusate 100 mg capsule 09-26 00:00: 00 Yes [id number] 200mg Take 2 capsules by mouth once daily as needed for Constipati on. [facility] ferrous sulfate 325 mg (65 mg iron) tablet 09-26 00:00: 00 Yes [id number] 325mg Take 1 tablet by mouth in the morning and 1 tablet in the evening. [facility] ibuprofen 600 mg tablet 09-26 00:00: 00 Yes [id number] 600mg Take 1 tablet by mouth every 6 (six) hours as needed (Pain). Take with food or milk. [facility] vitamin w/FA tablet 09-26 00:00: 00 Yes [id number] 1{tbl} Take 1 tablet by mouth in the morning. [facility] docusate 100 mg capsule 09-26 00:00: 00 Yes [id number] 200mg Take 2 capsules by mouth once daily as needed for Constipati on. [facility] ferrous sulfate 325 mg (65 mg iron) tablet 09-26 00:00: 00 Yes [id number] 325mg Take 1 tablet by mouth in the morning and 1 tablet in the evening. [facility] ibuprofen 600 mg tablet 09-26 00:00: 00 Yes [id number] 600mg Take 1 tablet by mouth every 6 (six) hours as needed (Pain). Take with food or milk. [facility] vitamin w/FA tablet 09-26 00:00: 00 Yes [id number] 1{tbl} Take 1 tablet by mouth in the morning. [facility] docusate 100 mg capsule 2023-0 09-26 00:00: 00 Yes [id number] 200mg Take 2 capsules by mouth once daily as needed for Constipati on. [facility] ferrous sulfate 325 mg (65 mg iron) tablet 09-26 00:00: 00 Yes [id number] 325mg Take 1 tablet by mouth in the morning and 1 tablet in the evening. [facility] ibuprofen 600 mg tablet 09-26 00:00: 00 Yes [id number] 600mg Take 1 tablet by mouth every 6 (six) hours as needed (Pain). Take with food or milk. [facility] vitamin w/FA tablet 09-26 00:00: 00 Yes [id number] 1{tbl} Take 1 tablet by mouth in the morning. [facility] docusate 100 mg capsule 09-26 00:00: 00 Yes [id number] 200mg Take 2 capsules by mouth once daily as needed for Constipati on. [facility] ferrous sulfate 325 mg (65 mg iron) tablet 09-26 00:00: 00 Yes [id number] 325mg Take 1 tablet by mouth in the morning and 1 tablet in the evening. [facility] ibuprofen 600 mg tablet 09-26 00:00: 00 Yes [id number] 600mg Take 1 tablet by mouth every 6 (six) hours as needed (Pain). Take with food or milk. [facility] vitamin w/FA tablet 09-26 00:00: 00 Yes [id number] 1{tbl} Take 1 tablet by mouth in the morning. [facility] docusate 100 mg capsule 0 09-26 00:00: 00 Yes [id number] 200mg Take 2 capsules by mouth once daily as needed for Constipati on. [facility] ferrous sulfate 325 mg (65 mg iron) tablet 0 09-26 00:00: 00 Yes [id number] 325mg Take 1 tablet by mouth in the morning and 1 tablet in the evening. [facility] ibuprofen 600 mg tablet 09-26 00:00: 00 Yes [id number] 600mg Take 1 tablet by mouth every 6 (six) hours as needed (Pain). Take with food or milk. [facility] vitamin w/FA tablet 09-26 00:00: 00 Yes [id number] 1{tbl} Take 1 tablet by mouth in the morning. [facility] docusate 100 mg capsule 09-26 00:00: 00 Yes [id number] 200mg Take 2 capsules by mouth once daily as needed for Constipati on. [facility] ferrous sulfate 325 mg (65 mg iron) tablet 09-26 00:00: 00 Yes [id number] 325mg Take 1 tablet by mouth in the morning and 1 tablet in the evening. [facility] ibuprofen 600 mg tablet 09-26 00:00: 00 Yes [id number] 600mg Take 1 tablet by mouth every 6 (six) hours as needed (Pain). Take with food or milk. [facility] vitamin w/FA tablet 09-26 00:00: 00 Yes [id number] 1{tbl} Take 1 tablet by mouth in the morning. [facility] docusate 100 mg capsule 09-26 00:00: 00 Yes [id number] 200mg Take 2 capsules by mouth once daily as needed for Constipati on. [facility] ferrous sulfate 325 mg (65 mg iron) tablet 09-26 00:00: 00 Yes [id number] 325mg Take 1 tablet by mouth in the morning and 1 tablet in the evening. [facility] ibuprofen 600 mg tablet 2023-0 09-26 00:00: 00 Yes [id number] 600mg Take 1 tablet by mouth every 6 (six) hours as needed (Pain). Take with food or milk. [facility] vitamin w/FA tablet 09-26 00:00: 00 Yes [id number] 1{tbl} Take 1 tablet by mouth in the morning. [facility] docusate 100 mg capsule 09-26 00:00: 00 Yes [id number] 200mg Take 2 capsules by mouth once daily as needed for Constipati on. [facility] ferrous sulfate 325 mg (65 mg iron) tablet 09-26 00:00: 00 Yes [id number] 325mg Take 1 tablet by mouth in the morning and 1 tablet in the evening. [facility] ibuprofen 600 mg tablet 09-26 00:00: 00 Yes [id number] 600mg Take 1 tablet by mouth every 6 (six) hours as needed (Pain). Take with food or milk. [facility] vitamin w/FA tablet 09-26 00:00: 00 Yes [id number] 1{tbl} Take 1 tablet by mouth in the morning. [facility] docusate 100 mg capsule 09-26 00:00: 00 Yes [id number] 200mg Take 2 capsules by mouth once daily as needed for Constipati on. [facility] ferrous sulfate 325 mg (65 mg iron) tablet 09-26 00:00: 00 Yes [id number] 325mg Take 1 tablet by mouth in the morning and 1 tablet in the evening. [facility] ibuprofen 600 mg tablet 09-26 00:00: 00 Yes [id number] 600mg Take 1 tablet by mouth every 6 (six) hours as needed (Pain). Take with food or milk. [facility] witch Gilbert (TUCKS) 50 % topical pad 09-25 16:22: 14 Yes Topical, Q4HPRN, Starting on Fri09/25/23 at 1022, Until Discontinu ed, Routine, rectal/hem orrhoidal [facility] rho(D) immune globulin (RHOGAM) syringe 300 mcg 09-25 16:18: 36 Yes 300ug 300 mcg, Intramuscu lar, ONCE, For 1 dose, Conditiona l, Routine [facility] HYDROcodone -acetaminop hen (NORCO 5) 5-325 mg tablet 1 tablet 09-25 16:18: 06 Yes 1{tbl} 1 tablet, Oral, Q6HPRN, Starting on Airam 09/25/23 at 1018, Until Discontinu ed, Routine, Pain (scale 7-10) [facility] ibuprofen (IBU) tablet 600 mg 09-25 16:18: 06 Yes 600mg 600 mg, Oral, Q6HPRN, Starting on Airam 09/25/23 at 1018, Until Discontinu ed, Routine, Pain (scale 4-6) [facility] acetaminoph en (TYLENOL) tablet 650 mg 09-25 16:18: 06 Yes 650mg 650 mg, Oral, Q6HPRN, Starting on Airam 09/25/23 at 1018, Until Discontinu ed, Routine, Pain (scale 1-3) [facility] diphenhydrA MINE (BENADRYL) tablet 25 mg 09-25 16:18: 06 Yes 25mg 25 mg, Oral, Q6HPRN, Starting on Airam 09/25/23 at 1018, Until Discontinu ed, Routine, Sleep, Itching [facility] ondansetron (ZOFRAN (PF)) injection 4 mg 09-25 16:18: 06 Yes 4mg 4 mg, Slow IV Push, Q8HPRN, Starting on Airam 09/25/23 at 1018, Until Discontinu ed, Routine, Nausea and Vomiting (N/V) [facility] simethicone (GAS RELIEF (SIMETHICON E)) chewable tablet 160 mg 09-25 16:18: 06 Yes 160mg 160 mg, Oral, PC+HSPRN, Starting on Airam 09/25/23 at 1018, Until Discontinu ed, Routine, Gas [facility] docusate (COLACE) capsule 200 mg 09-25 16:18: 06 Yes 200mg 200 mg, Oral, QDAILYPRN, Starting on Airam 09/25/23 at 1018, Until Discontinu ed, Routine, Constipati on [facility] magnesium hydroxide (MILK OF MAGNESIA) 400 mg/5 mL suspension 30 mL 09-25 16:18: 06 Yes 30mL 30 mL, Oral, QDAILYPRN, Starting on Airam 09/25/23 at 1018, Until Discontinu ed, Routine, Constipati on [facility] benzocaine- menthol (DERMOPLAST ) 20-0.5 % topical spray 09-25 16:18: 06 Yes Topical, PRN, Starting on Airam 09/25/23 at 1018, Until Discontinu ed, Routine, Perineum discomfort [facility] SERTraline (ZOLOFT) tablet 100 mg 09-25 15:00: 00 Yes 100mg 100 mg, Oral, DAILY, First dose on Airam 09/25/23 at 0900, Until Discontinu ed, Routine [facility] fentaNYL-ro pivacaine 2 mcg/mL-0.1 % (PF) in NS 200 mL epidural infusion RTU 09-25 09:30: 00 09-25 14:54 :08 No Epidural, ONCE INTRA PROCEDURE, Starting on Airam 09/25/23 at 0330, Until Airam 09/25/23 at 0854, Routine, Intra-op [facility] lidocaine-e pinephrine (XYLOCAINE W/EPINEPHRI NE) 1.5 %-1:200,000 injection 09-25 09:30: 00 09-25 14:54 :08 No Intraderma l, ONCE INTRA PROCEDURE, Starting on Airam 09/25/23 at 0330, Until Airam 09/25/23 at 0854, Routine, Intra-op [facility] FENTanyl PF (SUBLIMAZE (PF)) injection 100 mcg 09-25 07:40: 08 09-25 16:22 :14 No 100ug 100 mcg, Slow IV Push, Q1HPRN, Starting on Airam 09/25/23 at 0140, Until Airam 09/25/23 at 1022, Routine, contractio n pain without an epidural and SVE < 8 cm and Cat I strip [facility] ondansetron (ZOFRAN (PF)) injection 4 mg 09-25 07:40: 00 09-25 16:22 :14 No 4mg 4 mg, Slow IV Push, Q8HPRN, Nausea and Vomiting (N/V), Starting on Airam 24 at 0140
Do ses of ondansetro n 16 mg and above need to be administer ed via IV piggyback. For Dose >=24mg ECG monitoring is advisable.
[facility] oxytocin (PITOCIN) 30 units in NS 500 mL IV infusion 09-25 07:38: 50 09-25 16:21 :41 No 2mU/min at 2-40 mL/hr, IV Infusion, TITRATE, Starting on Airam 24 at 0138, Until Airam 124 at 1021, ABHAY [facility] oxytocin (PITOCIN) 30 units in NS 500 mL IV infusion 09-25 07:36: 45 09-25 13:45 :00 No 600mL/h 600 mL/hr, IV Infusion, PRN, PPH, Starting on Airam 09/25/23 at 0136, For 1 dose
As instructed by physician at bedside.<b r> [facility] lactated ringers IV infusion 500 mL 09-25 07:36: 45 09-25 16:21 :41 No 500mL at 999 mL/hr, 500 mL, IV Infusion, PRN - SEE INSTRUCTIO NS, Starting on Airam 09/25/23 at 0136, Until Airam 124 at 1021, Routine [facility] D5W-LR IV infusion 1,000 mL 09-25 07:36: 45 09-25 16:21 :40 No 1000mL at 1-125 mL/hr, IV Infusion, TITRATE, Starting on Airam 09/25/23 at 0136, Until Airam 24 at 1021, Routine [facility] famotidine 20 mg tablet 2022-09 00:00: 00 Yes [id number] 20mg Take 1 tablet by mouth in the morning and 1 tablet in the evening. [facility] famotidine 20 mg tablet 2022-09 00:00: 00 Yes [id number] 20mg Take 1 tablet by mouth in the morning and 1 tablet in the evening. [facility] famotidine 20 mg tablet 2022-09 00:00: 00 Yes [id number] 20mg Take 1 tablet by mouth in the morning and 1 tablet in the evening. [facility] famotidine 20 mg tablet 2022-09 00:00: 00 09-26 00:00 :00 No [id number] 20mg Take 1 tablet by mouth in the morning and 1 tablet in the evening. [facility] lactated ringers IV infusion 1,000 mL 2022-09 09:30: 00 Yes 1000mL at 125 mL/hr, 1,000 mL, IV Infusion, CONTINUOUS , Starting on Fri09/16/23 at 0330, Until Discontinu ed, Routine [facility] acetaminoph en (TYLENOL) tablet 650 mg 2022-09 09:17: 17 Yes 650mg 650 mg, Oral, Q6HPRN, Starting on Fri09/16/23 at 0317, Until Discontinu ed, Routine, Pain (scale 1-3) [facility] SERTraline 100 mg tablet 2022-09 00:00: 00 Yes [id number] 109 100mg Take 1 tablet by mouth in the morning. [facility] SERTraline 100 mg tablet 2022-09 00:00: 00 Yes [id number] 109 100mg Take 1 tablet by mouth in the morning. [facility] SERTraline 100 mg tablet 2022-09 00:00: 00 Yes [id number] 109 100mg Take 1 tablet by mouth in the morning. [facility] SERTraline 100 mg tablet 2022-09 00:00: 00 Yes [id number] 109 100mg Take 1 tablet by mouth in the morning. [facility] SERTraline 100 mg tablet 2022-09 00:00: 00 Yes [id number] 109 100mg Take 1 tablet by mouth in the morning. [facility] SERTraline 100 mg tablet 2022-09 00:00: 00 09-26 00:00 :00 No [id number] 109 100mg Take 1 tablet by mouth in the morning. [facility] proMETHazin e (PHENERGAN) tablet 25 mg 2022-09 14:29: 24 Yes 25mg 25 mg, Oral, Q6HPRN, Starting on Fri08/22/23 at 0829, Until Discontinu ed, Routine, Nausea and Vomiting (N/V) [facility] diphenhydrA MINE (BENADRYL) tablet 25 mg 2022-09 03:00: 00 08-22 03:19 :00 No 25mg 25 mg, Oral, ONCE, 1 dose, On Airam 08/21/23 at 2100, Routine [facility] ferrous sulfate 325 mg (65 mg iron) tablet 2022-09 00:00: 00 Yes [id number] 325mg Take 1 tablet by mouth in the morning. [facility] ferrous sulfate 325 mg (65 mg iron) tablet 2022-09 00:00: 00 Yes [id number] 325mg Take 1 tablet by mouth in the morning. [facility] ferrous sulfate 325 mg (65 mg iron) tablet 2022-09 00:00: 00 Yes [id number] 325mg Take 1 tablet by mouth in the morning. [facility] ferrous sulfate 325 mg (65 mg iron) tablet 2022-09 00:00: 00 Yes [id number] 325mg Take 1 tablet by mouth in the morning. [facility] ferrous sulfate 325 mg (65 mg iron) tablet 2022-09 00:00: 00 Yes [id number] 325mg Take 1 tablet by mouth in the morning. [facility] ferrous sulfate 325 mg (65 mg iron) tablet 2022-09 00:00: 00 Yes [id number] 325mg Take 1 tablet by mouth in the morning. [facility] ferrous sulfate 325 mg (65 mg iron) tablet 2022-09 00:00: 00 Yes [id number] 325mg Take 1 tablet by mouth in the morning. [facility] ferrous sulfate 325 mg (65 mg iron) tablet 2022-09 00:00: 00 Yes [id number] 325mg Take 1 tablet by mouth in the morning. [facility] ferrous sulfate 325 mg (65 mg iron) tablet 2022-09 00:00: 00 Yes [id number] 325mg Take 1 tablet by mouth in the morning. [facility] ferrous sulfate 325 mg (65 mg iron) tablet 2022-09 00:00: 00 Yes [id number] 325mg Take 1 tablet by mouth in the morning. [facility] ferrous sulfate 325 mg (65 mg iron) tablet 2022-09 00:00: 00 Yes [id number] 325mg Take 1 tablet by mouth in the morning. [facility] ferrous sulfate 325 mg (65 mg iron) tablet 2022-09 00:00: 00 Yes [id number] 325mg Take 1 tablet by mouth in the morning. [facility] ferrous sulfate 325 mg (65 mg iron) tablet 2022-09 00:00: 00 Yes [id number] 325mg Take 1 tablet by mouth in the morning. [facility] ferrous sulfate 325 mg (65 mg iron) tablet 2022-09 00:00: 00 09-26 00:00 :00 No [id number] 325mg Take 1 tablet by mouth in the morning. [facility] cyclobenzap rine (FLEXERIL) tablet 10 mg 2022-09 22:15: 00 08-21 22:06 :00 No 10mg 10 mg, Oral, ONCE NOW, 1 dose, On Fri08/21/23 at 1615, Routine [facility] terbutaline (BRETHINE) injection 0.25 mg 2022-09 19:45: 00 08-21 19:08 :00 No .25mg 0.25 mg, Subcutaneo us, ONCE, 1 dose, On Fri08/21/23 at 1345, Routine [facility] lactated ringers IV infusion 1,000 mL 2022-09 18:00: 00 08-21 19:10 :00 No 1000mL at 999 mL/hr, 1,000 mL, IV Infusion, ONCE, 1 dose, On Fri08/21/23 at 1200, Routine [facility] acetaminoph en (TYLENOL) tablet 1,000 mg 2022-09 17:00: 00 08-21 16:12 :00 No 1000mg 1,000 mg, Oral, ONCE, 1 dose, On Fri08/21/23 at 1100, Routine [facility] ferrous sulfate tablet 325 mg 2022-09 15:00: 00 Yes 325mg 325 mg, Oral, DAILY, First dose on Fri08/21/23 at 0900, Until Discontinu ed, Routine [facility] SERTraline (ZOLOFT) tablet 100 mg 2022-09 15:00: 00 Yes 100mg 100 mg, Oral, DAILY, First dose on Fri08/21/23 at 0900, Until Discontinu ed, Routine [facility] diphenhydrA MINE (BENADRYL) tablet 25 mg 2022-09 09:16: 00 08-21 09:24 :00 No 25mg 25 mg, Oral, ONCE, 1 dose, On Fri08/21/23 at 0330, Routine [facility] fluconazole (DIFLUCAN) tablet 150 mg 2022-09 08:00: 00 08-21 08:00 :00 No 150mg 150 mg, Oral, ONCE, 1 dose, On Fri08/21/23 at 0200, ABHAY
Re ason for Anti-Infec tive: Documented Infection< br>Documen refugio Infection Site: Pelvic
Duration of Therapy: 7 days [facility] alum-mag hydroxide-s imeth (MAG-AL PLUS) 200-200-20 mg/5 mL suspension 30 mL 2022-09 07:05: 45 Yes 30mL 30 mL, Oral, Q6HPRN, Starting on Fri08/21/23 at 0105, Until Discontinu ed, Routine, Indigestio n [facility] docusate (COLACE) capsule 200 mg 2022-09 07:05: 45 Yes 200mg 200 mg, Oral, QHSPRN, Starting on Fri08/21/23 at 0105, Until Discontinu ed, Routine, Constipati on [facility] magnesium hydroxide (MILK OF MAGNESIA) 400 mg/5 mL suspension 30 mL 2022-09 07:05: 45 Yes 30mL 30 mL, Oral, QDAILYPRN, Starting on Fri08/21/23 at 0105, Until Discontinu ed, Routine, Constipati on [facility] ondansetron (ZOFRAN (PF)) injection 4 mg 2022-09 06:45: 00 08-21 06:58 :00 No 4mg 4 mg, Slow IV Push, ONCE, On Fri08/21/23 at 0045, For 1 dose
Do ses of ondansetro n 16 mg and above need to be administer ed via IV piggyback. For Dose >=24mg ECG monitoring is advisable.
[facility] acetaminoph en (TYLENOL) tablet 1,000 mg 2022-09 06:45: 00 08-21 06:58 :00 No 1000mg 1,000 mg, Oral, ONCE, 1 dose, On Fri08/21/23 at 0045, Routine [facility] FENTanyl PF (SUBLIMAZE (PF)) injection 100 mcg 2022-09 02:15: 00 08-21 01:26 :00 No 100ug 100 mcg, Slow IV Push, ONCE, 1 dose, On Fri08/20/23 at 2015, Routine [facility] betamethaso ne acet,sod phos (CELESTONE SOLUSPAN) 6 mg/mL injection 12 mg 2022-09 01:45: 00 08-22 01:34 :00 No 12mg 12 mg, Intramuscu lar, Q24H, 2 doses, First dose on Fri08/20/23 at 1945, Last dose on Fri08/21/23 at 1945, Routine [facility] D5W 0.9% NaCl (NS) IV infusion 1,000 mL 2022-09 23:45: 00 08-21 19:39 :48 No 1000mL at 125 mL/hr, 1,000 mL, IV Infusion, CONTINUOUS , Starting on Fri08/20/23 at 1745, Until Fri08/21/23 at 1339, Routine [facility] SERTraline 100 mg tablet 2022-09 00:00: 00 Yes [id number] 109 100mg Take 1 tablet by mouth in the morning. [facility] SERTraline 100 mg tablet 2022-09 00:00: 00 Yes [id number] 109 100mg Take 1 tablet by mouth in the morning. [facility] SERTraline 100 mg tablet 2022-09 00:00: 00 Yes [id number] 109 100mg Take 1 tablet by mouth in the morning. [facility] SERTraline 100 mg tablet 2022-09 00:00: 00 Yes [id number] 109 100mg Take 1 tablet by mouth in the morning. [facility] SERTraline 100 mg tablet 2022-09 00:00: 00 Yes [id number] 109 100mg Take 1 tablet by mouth in the morning. [facility] SERTraline 100 mg tablet 2022-09 00:00: 00 Yes [id number] 109 100mg Take 1 tablet by mouth in the morning. [facility] SERTraline 100 mg tablet 2022-09 00:00: 00 Yes [id number] 109 100mg Take 1 tablet by mouth in the morning. [facility] SERTraline 100 mg tablet 2022-09 00:00: 00 Yes [id number] 109 100mg Take 1 tablet by mouth in the morning. [facility] SERTraline 100 mg tablet 2022-09 00:00: 00 Yes [id number] 109 100mg Take 1 tablet by mouth in the morning. [facility] SERTraline 100 mg tablet 2022-09 00:00: 00 Yes [id number] 109 100mg Take 1 tablet by mouth in the morning. [facility] SERTraline 100 mg tablet 2022-09 00:00: 00 Yes [id number] 109 100mg Take 1 tablet by mouth in the morning. [facility] SERTraline 100 mg tablet 2022-09 00:00: 00 09-11 00:00 :00 No [id number] 109 100mg Take 1 tablet by mouth in the morning. [facility] Nitrofurant oin&Nit. Macrocryst (MACROBID) 100 mg capsule 2022-09 00:00: 00 08-12 05:59 :00 No [id number] 100mg Take 1 capsule by mouth in the morning and 1 capsule in the evening. Do all this for 7 days. [facility] acetaminoph en (TYLENOL) tablet 650 mg 2022-09 10:00: 00 07-29 09:53 :00 No 650mg 650 mg, Oral, ONCE, 1 dose, On Fri07/29/23 at 0400, Routine [facility] SERTraline 100 mg tablet 05-21 00:00: 00 Yes [id number] 109 100mg Take 1 tablet by mouth in the morning. [facility] SERTraline 100 mg tablet 05-21 00:00: 00 Yes [id number] 109 100mg Take 1 tablet by mouth in the morning. [facility] SERTraline 100 mg tablet 05-21 00:00: 00 Yes [id number] 109 100mg Take 1 tablet by mouth in the morning. [facility] SERTraline 100 mg tablet 05-21 00:00: 00 Yes [id number] 109 100mg Take 1 tablet by mouth in the morning. [facility] SERTraline 100 mg tablet 05-21 00:00: 00 Yes [id number] 109 100mg Take 1 tablet by mouth in the morning. [facility] SERTraline 100 mg tablet 05-21 00:00: 00 Yes [id number] 109 100mg Take 1 tablet by mouth in the morning. [facility] SERTraline 100 mg tablet 05-21 00:00: 00 Yes [id number] 109 100mg Take 1 tablet by mouth in the morning. [facility] SERTraline 100 mg tablet 05-21 00:00: 00 Yes [id number] 109 100mg Take 1 tablet by mouth in the morning. [facility] SERTraline 100 mg tablet 05-21 00:00: 00 Yes [id number] 109 100mg Take 1 tablet by mouth in the morning. [facility] SERTraline 100 mg tablet 05-21 00:00: 00 Yes [id number] 109 100mg Take 1 tablet by mouth in the morning. [facility] SERTraline 100 mg tablet 05-21 00:00: 00 08-04 00:00 :00 No [id number] 109 100mg Take 1 tablet by mouth in the morning. [facility] ondansetron (ZOFRAN (PF)) injection 4 mg 04-18 20:45: 00 04-18 20:21 :00 No 4mg 4 mg, Slow IV Push, ONCE, On Fri04/18/23 at 1545, For 1 dose
Do ses of ondansetro n 16 mg and above need to be administer ed via IV piggyback. For Dose >=24mg ECG monitoring is advisable.
[facility] NaCl 0.9% (NS) bolus infusion 1,000 mL 04-18 20:30: 00 04-18 19:32 :00 No 1000mL at 999 mL/hr, 1,000 mL, IV Infusion, ONCE, 1 dose, On Fri04/18/23 at 1530, STAT [facility] NaCl 0.9% (NS) bolus infusion 1,000 mL 04-18 19:15: 00 04-18 18:27 :00 No 1000mL at 999 mL/hr, 1,000 mL, IV Infusion, ONCE, 1 dose, On Fri04/18/23 at 1415, STAT [facility] metroNIDAZO LE (FLAGYL) 500 mg tablet 04-18 00:00: 00 Yes [id number] 500mg Take 1 tablet by mouth every 12 (twelve) hours. [facility] metroNIDAZO LE (FLAGYL) 500 mg tablet 2023-0 7-28 00:00: 00 Yes [id number] 500mg Take 1 tablet by mouth every 12 (twelve) hours. [facility] metroNIDAZO LE (FLAGYL) 500 mg tablet 3-0 7-28 00:00: 00 Yes [id number] 500mg Take 1 tablet by mouth every 12 (twelve) hours. [facility] metroNIDAZO LE (FLAGYL) 500 mg tablet 2023-0 7-28 00:00: 00 Yes [id number] 500mg Take 1 tablet by mouth every 12 (twelve) hours. [facility] metroNIDAZO LE (FLAGYL) 500 mg tablet 3-0 7-28 00:00: 00 Yes [id number] 500mg Take 1 tablet by mouth every 12 (twelve) hours. [facility] metroNIDAZO LE (FLAGYL) 500 mg tablet 3-0 7-28 00:00: 00 Yes [id number] 500mg Take 1 tablet by mouth every 12 (twelve) hours. [facility] metroNIDAZO LE (FLAGYL) 500 mg tablet 3-0 7-28 00:00: 00 Yes [id number] 500mg Take 1 tablet by mouth every 12 (twelve) hours. [facility] metroNIDAZO LE (FLAGYL) 500 mg tablet 3-0 7-28 00:00: 00 Yes [id number] 500mg Take 1 tablet by mouth every 12 (twelve) hours. [facility] metroNIDAZO LE (FLAGYL) 500 mg tablet 3-0 7-28 00:00: 00 Yes [id number] 500mg Take 1 tablet by mouth every 12 (twelve) hours. [facility] metroNIDAZO LE (FLAGYL) 500 mg tablet 3-0 7-28 00:00: 00 Yes [id number] 500mg Take 1 tablet by mouth every 12 (twelve) hours. [facility] metroNIDAZO LE (FLAGYL) 500 mg tablet 3-0 7-28 00:00: 00 Yes [id number] 500mg Take 1 tablet by mouth every 12 (twelve) hours. [facility] metroNIDAZO LE (FLAGYL) 500 mg tablet 2023-0 7-28 00:00: 00 Yes [id number] 500mg Take 1 tablet by mouth every 12 (twelve) hours. [facility] metroNIDAZO LE (FLAGYL) 500 mg tablet 04-18 00:00: 00 Yes [id number] 500mg Take 1 tablet by mouth every 12 (twelve) hours. [facility] metroNIDAZO LE (FLAGYL) 500 mg tablet 04-18 00:00: 00 08-04 00:00 :00 No [id number] 500mg Take 1 tablet by mouth every 12 (twelve) hours. [facility] fluconazole (DIFLUCAN) 150 mg tablet 04-07 00:00: 00 04-08 04:59 :00 No [id number] 150mg Take 1 tablet by mouth once now for 1 dose. [facility] proMETHazin e 25 mg tablet 04-03 00:00: 00 Yes [id number] 25mg Take 1 tablet by mouth every 4 (four) hours as needed for Nausea and Vomiting (N/V). [facility] proMETHazin e 25 mg tablet 04-03 00:00: 00 Yes [id number] 25mg Take 1 tablet by mouth every 4 (four) hours as needed for Nausea and Vomiting (N/V). [facility] proMETHazin e 25 mg tablet 04-03 00:00: 00 Yes [id number] 25mg Take 1 tablet by mouth every 4 (four) hours as needed for Nausea and Vomiting (N/V). [facility] proMETHazin e 25 mg tablet 0 04-03 00:00: 00 Yes [id number] 25mg Take 1 tablet by mouth every 4 (four) hours as needed for Nausea and Vomiting (N/V). [facility] proMETHazin e 25 mg tablet 0 04-03 00:00: 00 Yes [id number] 25mg Take 1 tablet by mouth every 4 (four) hours as needed for Nausea and Vomiting (N/V). [facility] proMETHazin e 25 mg tablet 0 04-03 00:00: 00 Yes [id number] 25mg Take 1 tablet by mouth every 4 (four) hours as needed for Nausea and Vomiting (N/V). [facility] proMETHazin e 25 mg tablet 2023-0 7-13 00:00: 00 Yes [id number] 25mg Take 1 tablet by mouth every 4 (four) hours as needed for Nausea and Vomiting (N/V). [facility] proMETHazin e 25 mg tablet 3-0 7-13 00:00: 00 Yes [id number] 25mg Take 1 tablet by mouth every 4 (four) hours as needed for Nausea and Vomiting (N/V). [facility] proMETHazin e 25 mg tablet 3-0 7-13 00:00: 00 Yes [id number] 25mg Take 1 tablet by mouth every 4 (four) hours as needed for Nausea and Vomiting (N/V). [facility] proMETHazin e 25 mg tablet 3-0 7-13 00:00: 00 Yes [id number] 25mg Take 1 tablet by mouth every 4 (four) hours as needed for Nausea and Vomiting (N/V). [facility] proMETHazin e 25 mg tablet 3-0 7-13 00:00: 00 Yes [id number] 25mg Take 1 tablet by mouth every 4 (four) hours as needed for Nausea and Vomiting (N/V). [facility] proMETHazin e 25 mg tablet 3-0 7-13 00:00: 00 Yes [id number] 25mg Take 1 tablet by mouth every 4 (four) hours as needed for Nausea and Vomiting (N/V). [facility] proMETHazin e 25 mg tablet 3-0 7-13 00:00: 00 Yes [id number] 25mg Take 1 tablet by mouth every 4 (four) hours as needed for Nausea and Vomiting (N/V). [facility] proMETHazin e 25 mg tablet 2023-0 7-13 00:00: 00 Yes [id number] 25mg Take 1 tablet by mouth every 4 (four) hours as needed for Nausea and Vomiting (N/V). [facility] proMETHazin e 25 mg tablet 2023-0 7-13 00:00: 00 Yes [id number] 25mg Take 1 tablet by mouth every 4 (four) hours as needed for Nausea and Vomiting (N/V). [facility] proMETHazin e 25 mg tablet 3-0 7-13 00:00: 00 Yes [id number] 25mg Take 1 tablet by mouth every 4 (four) hours as needed for Nausea and Vomiting (N/V). [facility] proMETHazin e 25 mg tablet 3-0 7-13 00:00: 00 Yes [id number] 25mg Take 1 tablet by mouth every 4 (four) hours as needed for Nausea and Vomiting (N/V). [facility] proMETHazin e 25 mg tablet 3-0 7-13 00:00: 00 Yes [id number] 25mg Take 1 tablet by mouth every 4 (four) hours as needed for Nausea and Vomiting (N/V). [facility] proMETHazin e 25 mg tablet 3-0 7-13 00:00: 00 Yes [id number] 25mg Take 1 tablet by mouth every 4 (four) hours as needed for Nausea and Vomiting (N/V). [facility] proMETHazin e 25 mg tablet 3-0 7-13 00:00: 00 Yes [id number] 25mg Take 1 tablet by mouth every 4 (four) hours as needed for Nausea and Vomiting (N/V). [facility] proMETHazin e 25 mg tablet 3-0 7-13 00:00: 00 Yes [id number] 25mg Take 1 tablet by mouth every 4 (four) hours as needed for Nausea and Vomiting (N/V). [facility] proMETHazin e 25 mg tablet 3-0 7-13 00:00: 00 Yes [id number] 25mg Take 1 tablet by mouth every 4 (four) hours as needed for Nausea and Vomiting (N/V). [facility] proMETHazin e 25 mg tablet 3-0 7-13 00:00: 00 Yes [id number] 25mg Take 1 tablet by mouth every 4 (four) hours as needed for Nausea and Vomiting (N/V). [facility] proMETHazin e 25 mg tablet 3-0 7-13 00:00: 00 Yes [id number] 25mg Take 1 tablet by mouth every 4 (four) hours as needed for Nausea and Vomiting (N/V). [facility] proMETHazin e 25 mg tablet 3-0 7-13 00:00: 00 Yes [id number] 25mg Take 1 tablet by mouth every 4 (four) hours as needed for Nausea and Vomiting (N/V). [facility] proMETHazin e 25 mg tablet 2023-0 7-13 00:00: 00 Yes [id number] 25mg Take 1 tablet by mouth every 4 (four) hours as needed for Nausea and Vomiting (N/V). [facility] proMETHazin e 25 mg tablet 3-0 7-13 00:00: 00 Yes [id number] 25mg Take 1 tablet by mouth every 4 (four) hours as needed for Nausea and Vomiting (N/V). [facility] proMETHazin e 25 mg tablet 3-0 7-13 00:00: 00 Yes [id number] 25mg Take 1 tablet by mouth every 4 (four) hours as needed for Nausea and Vomiting (N/V). [facility] proMETHazin e 25 mg tablet 3-0 7-13 00:00: 00 Yes [id number] 25mg Take 1 tablet by mouth every 4 (four) hours as needed for Nausea and Vomiting (N/V). [facility] proMETHazin e 25 mg tablet 3-0 7-13 00:00: 00 Yes [id number] 25mg Take 1 tablet by mouth every 4 (four) hours as needed for Nausea and Vomiting (N/V). [facility] proMETHazin e 25 mg tablet 3-0 7-13 00:00: 00 Yes [id number] 25mg Take 1 tablet by mouth every 4 (four) hours as needed for Nausea and Vomiting (N/V). [facility] proMETHazin e 25 mg tablet 3-0 7-13 00:00: 00 Yes [id number] 25mg Take 1 tablet by mouth every 4 (four) hours as needed for Nausea and Vomiting (N/V). [facility] proMETHazin e 25 mg tablet 2023-0 7-13 00:00: 00 Yes [id number] 25mg Take 1 tablet by mouth every 4 (four) hours as needed for Nausea and Vomiting (N/V). [facility] proMETHazin e 25 mg tablet 04-03 00:00: 00 09-26 00:00 :00 No [id number] 25mg Take 1 tablet by mouth every 4 (four) hours as needed for Nausea and Vomiting (N/V). [facility] SERTraline (ZOLOFT) 50 mg tablet 04-03 00:00: 00 05-08 04:59 :00 No [id number] 109 Take 1 tablet by mouth daily for 4 days, THEN 2 tablets daily for 30 days. [facility] SERTraline (ZOLOFT) 50 mg tablet 04-03 00:00: 00 05-08 04:59 :00 No [id number] 109 Take 1 tablet by mouth daily for 4 days, THEN 2 tablets daily for 30 days. [facility] SERTraline (ZOLOFT) 50 mg tablet 04-03 00:00: 00 05-08 04:59 :00 No [id number] 109 Take 1 tablet by mouth daily for 4 days, THEN 2 tablets daily for 30 days. [facility] SERTraline (ZOLOFT) 50 mg tablet 04-03 00:00: 00 05-08 04:59 :00 No [id number] 109 Take 1 tablet by mouth daily for 4 days, THEN 2 tablets daily for 30 days. [facility] SERTraline (ZOLOFT) 50 mg tablet 04-03 00:00: 00 05-08 04:59 :00 No [id number] 109 Take 1 tablet by mouth daily for 4 days, THEN 2 tablets daily for 30 days. [facility] SERTraline (ZOLOFT) 50 mg tablet 04-03 00:00: 00 05-08 04:59 :00 No [id number] 109 Take 1 tablet by mouth daily for 4 days, THEN 2 tablets daily for 30 days. [facility] vit 33-iron-fol ic-dha (SELECT-OB + DHA) 29 mg iron-1 mg -250 mg combo pack 20 00:00: 00 Yes [id number] 1{packe t} Take 1 Packet by mouth in the morning. [facility] vit 33-iron-fol ic-dha (SELECT-OB + DHA) 29 mg iron-1 mg -250 mg combo pack 2023-0 6-20 00:00: 00 Yes [id number] 1{packe t} Take 1 Packet by mouth in the morning. [facility] vit 33-iron-fol ic-dha (SELECT-OB + DHA) 29 mg iron-1 mg -250 mg combo pack 2023-0 6-20 00:00: 00 Yes [id number] 1{packe t} Take 1 Packet by mouth in the morning. [facility] vit 33-iron-fol ic-dha (SELECT-OB + DHA) 29 mg iron-1 mg -250 mg combo pack 2023-0 6-20 00:00: 00 Yes [id number] 1{packe t} Take 1 Packet by mouth in the morning. [facility] vit 33-iron-fol ic-dha (SELECT-OB + DHA) 29 mg iron-1 mg -250 mg combo pack 2023-0 620 00:00: 00 Yes [id number] 1{packe t} Take 1 Packet by mouth in the morning. [facility] vit 33-iron-fol ic-dha (SELECT-OB + DHA) 29 mg iron-1 mg -250 mg combo pack 2023-0 6-20 00:00: 00 Yes [id number] 1{packe t} Take 1 Packet by mouth in the morning. [facility] vit 33-iron-fol ic-dha (SELECT-OB + DHA) 29 mg iron-1 mg -250 mg combo pack 2023-0 6-20 00:00: 00 Yes [id number] 1{packe t} Take 1 Packet by mouth in the morning. [facility] vit 33-iron-fol ic-dha (SELECT-OB + DHA) 29 mg iron-1 mg -250 mg combo pack 2023-0 6-20 00:00: 00 Yes [id number] 1{packe t} Take 1 Packet by mouth in the morning. [facility] vit 33-iron-fol ic-dha (SELECT-OB + DHA) 29 mg iron-1 mg -250 mg combo pack 2023-0 6-20 00:00: 00 Yes [id number] 1{packe t} Take 1 Packet by mouth in the morning. [facility] vit 33-iron-fol ic-dha (SELECT-OB + DHA) 29 mg iron-1 mg -250 mg combo pack 2023-0 6-20 00:00: 00 Yes [id number] 1{packe t} Take 1 Packet by mouth in the morning. [facility] vit 33-iron-fol ic-dha (SELECT-OB + DHA) 29 mg iron-1 mg -250 mg combo pack 3-0 6-20 00:00: 00 Yes [id number] 1{packe t} Take 1 Packet by mouth in the morning. [facility] vit 33-iron-fol ic-dha (SELECT-OB + DHA) 29 mg iron-1 mg -250 mg combo pack 3-0 20 00:00: 00 Yes [id number] 1{packe t} Take 1 Packet by mouth in the morning. [facility] vit 33-iron-fol ic-dha (SELECT-OB + DHA) 29 mg iron-1 mg -250 mg combo pack 3-0 20 00:00: 00 Yes [id number] 1{packe t} Take 1 Packet by mouth in the morning. [facility] vit 33-iron-fol ic-dha (SELECT-OB + DHA) 29 mg iron-1 mg -250 mg combo pack 3-0 20 00:00: 00 Yes [id number] 1{packe t} Take 1 Packet by mouth in the morning. [facility] vit 33-iron-fol ic-dha (SELECT-OB + DHA) 29 mg iron-1 mg -250 mg combo pack 2023-0 6-20 00:00: 00 Yes [id number] 1{packe t} Take 1 Packet by mouth in the morning. [facility] vit 33-iron-fol ic-dha (SELECT-OB + DHA) 29 mg iron-1 mg -250 mg combo pack 2023-0 6-20 00:00: 00 Yes [id number] 1{packe t} Take 1 Packet by mouth in the morning. [facility] vit 33-iron-fol ic-dha (SELECT-OB + DHA) 29 mg iron-1 mg -250 mg combo pack 2023-0 6-20 00:00: 00 Yes [id number] 1{packe t} Take 1 Packet by mouth in the morning. [facility] vit 33-iron-fol ic-dha (SELECT-OB + DHA) 29 mg iron-1 mg -250 mg combo pack 2023-0 6-20 00:00: 00 Yes [id number] 1{packe t} Take 1 Packet by mouth in the morning. [facility] vit 33-iron-fol ic-dha (SELECT-OB + DHA) 29 mg iron-1 mg -250 mg combo pack 2023-0 6-20 00:00: 00 Yes [id number] 1{packe t} Take 1 Packet by mouth in the morning. [facility] vit 33-iron-fol ic-dha (SELECT-OB + DHA) 29 mg iron-1 mg -250 mg combo pack 2023-0 6-20 00:00: 00 Yes [id number] 1{packe t} Take 1 Packet by mouth in the morning. [facility] vit 33-iron-fol ic-dha (SELECT-OB + DHA) 29 mg iron-1 mg -250 mg combo pack 2023-0 6-20 00:00: 00 Yes [id number] 1{packe t} Take 1 Packet by mouth in the morning. [facility] vit 33-iron-fol ic-dha (SELECT-OB + DHA) 29 mg iron-1 mg -250 mg combo pack 2023-0 6-20 00:00: 00 Yes [id number] 1{packe t} Take 1 Packet by mouth in the morning. [facility] vit 33-iron-fol ic-dha (SELECT-OB + DHA) 29 mg iron-1 mg -250 mg combo pack 2023-0 6-20 00:00: 00 Yes [id number] 1{packe t} Take 1 Packet by mouth in the morning. [facility] vit 33-iron-fol ic-dha (SELECT-OB + DHA) 29 mg iron-1 mg -250 mg combo pack 2023-0 20 00:00: 00 Yes [id number] 1{packe t} Take 1 Packet by mouth in the morning. [facility] vit 33-iron-fol ic-dha (SELECT-OB + DHA) 29 mg iron-1 mg -250 mg combo pack 3-0 620 00:00: 00 Yes [id number] 1{packe t} Take 1 Packet by mouth in the morning. [facility] vit 33-iron-fol ic-dha (SELECT-OB + DHA) 29 mg iron-1 mg -250 mg combo pack 3-0 20 00:00: 00 Yes [id number] 1{packe t} Take 1 Packet by mouth in the morning. [facility] vit 33-iron-fol ic-dha (SELECT-OB + DHA) 29 mg iron-1 mg -250 mg combo pack 3-0 03-11 00:00: 00 Yes [id number] 1{packe t} Take 1 Packet by mouth in the morning. [facility] vit 33-iron-fol ic-dha (SELECT-OB + DHA) 29 mg iron-1 mg -250 mg combo pack 3-0 03-11 00:00: 00 Yes [id number] 1{packe t} Take 1 Packet by mouth in the morning. [facility] vit 33-iron-fol ic-dha (SELECT-OB + DHA) 29 mg iron-1 mg -250 mg combo pack 3-0 20 00:00: 00 Yes [id number] 1{packe t} Take 1 Packet by mouth in the morning. [facility] vit 33-iron-fol ic-dha (SELECT-OB + DHA) 29 mg iron-1 mg -250 mg combo pack 3-0 20 00:00: 00 Yes [id number] 1{packe t} Take 1 Packet by mouth in the morning. [facility] vit 33-iron-fol ic-dha (SELECT-OB + DHA) 29 mg iron-1 mg -250 mg combo pack 2023-0 6-20 00:00: 00 Yes [id number] 1{packe t} Take 1 Packet by mouth in the morning. [facility] vit 33-iron-fol ic-dha (SELECT-OB + DHA) 29 mg iron-1 mg -250 mg combo pack 2023-0 6-20 00:00: 00 Yes [id number] 1{packe t} Take 1 Packet by mouth in the morning. [facility] vit 33-iron-fol ic-dha (SELECT-OB + DHA) 29 mg iron-1 mg -250 mg combo pack 2023-0 6-20 00:00: 00 Yes [id number] 1{packe t} Take 1 Packet by mouth in the morning. [facility] vit 33-iron-fol ic-dha (SELECT-OB + DHA) 29 mg iron-1 mg -250 mg combo pack 2023-0 6-20 00:00: 00 Yes [id number] 1{packe t} Take 1 Packet by mouth in the morning. [facility] vit 33-iron-fol ic-dha (SELECT-OB + DHA) 29 mg iron-1 mg -250 mg combo pack 2023-0 6-20 00:00: 00 Yes [id number] 1{packe t} Take 1 Packet by mouth in the morning. [facility] vit 33-iron-fol ic-dha (SELECT-OB + DHA) 29 mg iron-1 mg -250 mg combo pack 2023-0 6-20 00:00: 00 Yes [id number] 1{packe t} Take 1 Packet by mouth in the morning. [facility] vit 33-iron-fol ic-dha (SELECT-OB + DHA) 29 mg iron-1 mg -250 mg combo pack 2023-0 6-20 00:00: 00 Yes [id number] 1{packe t} Take 1 Packet by mouth in the morning. [facility] vit 33-iron-fol ic-dha (SELECT-OB + DHA) 29 mg iron-1 mg -250 mg combo pack 2023-0 6-20 00:00: 00 Yes [id number] 1{packe t} Take 1 Packet by mouth in the morning. [facility] vit 33-iron-fol ic-dha (SELECT-OB + DHA) 29 mg iron-1 mg -250 mg combo pack 2022-0 03-11 00:00: 00 Yes [id number] 1{packe t} Take 1 Packet by mouth in the morning. [facility] vit 33-iron-fol ic-dha (SELECT-OB + DHA) 29 mg iron-1 mg -250 mg combo pack 2022-0 03-11 00:00: 00 09-26 00:00 :00 No [id number] 1{packe t} Take 1 Packet by mouth in the morning. [facility] proMETHazin e 25 mg tablet 2022-0 -30 00:00: 00 Yes [id number] 25mg Take 1 tablet by mouth every 4 (four) hours as needed for Nausea and Vomiting (N/V). [facility] proMETHazin e 25 mg tablet 3-0 -30 00:00: 00 Yes [id number] 25mg Take 1 tablet by mouth every 4 (four) hours as needed for Nausea and Vomiting (N/V). [facility] proMETHazin e 25 mg tablet 3-0 -30 00:00: 00 Yes [id number] 25mg Take 1 tablet by mouth every 4 (four) hours as needed for Nausea and Vomiting (N/V). [facility] proMETHazin e 25 mg tablet 3-0 -30 00:00: 00 Yes [id number] 25mg Take 1 tablet by mouth every 4 (four) hours as needed for Nausea and Vomiting (N/V). [facility] proMETHazin e 25 mg tablet 3-0 5-30 00:00: 00 Yes [id number] 25mg Take 1 tablet by mouth every 4 (four) hours as needed for Nausea and Vomiting (N/V). [facility] proMETHazin e 25 mg tablet 3-0 5-30 00:00: 00 Yes [id number] 25mg Take 1 tablet by mouth every 4 (four) hours as needed for Nausea and Vomiting (N/V). [facility] proMETHazin e 25 mg tablet 3-0 5-30 00:00: 00 Yes [id number] 25mg Take 1 tablet by mouth every 4 (four) hours as needed for Nausea and Vomiting (N/V). [facility] proMETHazin e 25 mg tablet 02-18 00:00: 00 04-03 00:00 :00 No [id number] 25mg Take 1 tablet by mouth every 4 (four) hours as needed for Nausea and Vomiting (N/V). [facility] metroNIDAZO LE 500 mg tablet 02-14 00:00: 00 02-15 04:59 :00 No [id number] 2000mg Take 4 tablets by mouth once now for 1 dose. [facility] metroNIDAZO LE 500 mg tablet 02-14 00:00: 00 02-15 04:59 :00 No [id number] 2000mg Take 4 tablets by mouth once now for 1 dose. [facility] ondansetron (ZOFRAN (PF)) injection 4 mg 01-17 04:00: 01-17 03:11 :00 No 4mg 4 mg, Slow IV Push, ONCE, 1 dose, On Fri01/16/22 at 2300, ABHAY [facility] NaCl 0.9% (NS) bolus infusion 1,000 mL 01-17 04:00: 00 01-17 03:52 :00 No 1000mL at 999 mL/hr, 1,000 mL, IV Infusion, ONCE, 1 dose, On Fri01/16/22 at 2300, ABHAY [facility] ondansetron 4 mg disintegrat ing tablet 01-16 00:00: 00 Yes [id number] 4mg Take 1 tablet by mouth every 8 (eight) hours as needed for Nausea and Vomiting (N/V). [facility] ondansetron 4 mg disintegrat ing tablet 01-16 00:00: 00 Yes [id number] 4mg Take 1 tablet by mouth every 8 (eight) hours as needed for Nausea and Vomiting (N/V). [facility] ondansetron 4 mg disintegrat ing tablet 01-16 00:00: 00 Yes [id number] 4mg Take 1 tablet by mouth every 8 (eight) hours as needed for Nausea and Vomiting (N/V). [facility] ondansetron 4 mg disintegrat ing tablet 01-16 00:00: 00 Yes [id number] 4mg Take 1 tablet by mouth every 8 (eight) hours as needed for Nausea and Vomiting (N/V). [facility] ondansetron 4 mg disintegrat ing tablet 0 01-16 00:00: 00 Yes [id number] 4mg Take 1 tablet by mouth every 8 (eight) hours as needed for Nausea and Vomiting (N/V). [facility] ondansetron 4 mg disintegrat ing tablet 01-16 00:00: 00 Yes [id number] 4mg Take 1 tablet by mouth every 8 (eight) hours as needed for Nausea and Vomiting (N/V). [facility] ondansetron 4 mg disintegrat ing tablet 01-16 00:00: 00 Yes [id number] 4mg Take 1 tablet by mouth every 8 (eight) hours as needed for Nausea and Vomiting (N/V). [facility] ondansetron 4 mg disintegrat ing tablet 0 01-16 00:00: 00 Yes [id number] 4mg Take 1 tablet by mouth every 8 (eight) hours as needed for Nausea and Vomiting (N/V). [facility] ondansetron 4 mg disintegrat ing tablet 0 01-16 00:00: 00 Yes [id number] 4mg Take 1 tablet by mouth every 8 (eight) hours as needed for Nausea and Vomiting (N/V). [facility] ondansetron 4 mg disintegrat ing tablet 0 01-16 00:00: 00 Yes [id number] 4mg Take 1 tablet by mouth every 8 (eight) hours as needed for Nausea and Vomiting (N/V). [facility] ondansetron 4 mg disintegrat ing tablet 0 01-16 00:00: 00 Yes [id number] 4mg Take 1 tablet by mouth every 8 (eight) hours as needed for Nausea and Vomiting (N/V). [facility] ondansetron 4 mg disintegrat ing tablet 01-16 00:00: 00 Yes [id number] 4mg Take 1 tablet by mouth every 8 (eight) hours as needed for Nausea and Vomiting (N/V). [facility] ondansetron 4 mg disintegrat ing tablet 01-16 00:00: 00 04-03 00:00 :00 No [id number] 4mg Take 1 tablet by mouth every 8 (eight) hours as needed for Nausea and Vomiting (N/V). [facility] azithromyci n 250 mg tablet 12-17 00:00: 00 Yes [id number] 250mg Take 1 tablet by mouth daily. Take 500 mg day 1, then 250 mg days 2 to 5. [facility] azithromyci n 250 mg tablet 12-17 00:00: 00 Yes [id number] 250mg Take 1 tablet by mouth daily. Take 500 mg day 1, then 250 mg days 2 to 5. [facility] azithromyci n 250 mg tablet 12-17 00:00: 00 Yes [id number] 250mg Take 1 tablet by mouth daily. Take 500 mg day 1, then 250 mg days 2 to 5. [facility] azithromyci n 250 mg tablet 12-17 00:00: 00 02-11 00:00 :00 No [id number] 250mg Take 1 tablet by mouth daily. Take 500 mg day 1, then 250 mg days 2 to 5. [facility] azithromyci n 250 mg tablet 12-17 00:00: 00 02-11 00:00 :00 No [id number] 250mg Take 1 tablet by mouth daily. Take 500 mg day 1, then 250 mg days 2 to 5. [facility] Nitrofurant oin&Nit. Macrocryst 100 mg capsule 05-04 00:00: 00 05-12 04:59 :00 No [id number] 100mg Take 1 capsule by mouth 2 (two) times daily for 7 days. [facility] metroNIDAZO LE 500 mg tablet 04-30 00:00: 00 Yes [id number] 500mg Take 1 tablet by mouth every 12 (twelve) hours. [facility] metroNIDAZO LE 500 mg tablet 04-30 00:00: 00 Yes [id number] 500mg Take 1 tablet by mouth every 12 (twelve) hours. [facility] metroNIDAZO LE 500 mg tablet 04-30 00:00: 00 Yes [id number] 500mg Take 1 tablet by mouth every 12 (twelve) hours. [facility] metroNIDAZO LE 500 mg tablet 04-30 00:00: 00 05-04 00:00 :00 No [id number] 500mg Take 1 tablet by mouth every 12 (twelve) hours. [facility] fluconazole (DIFLUCAN) 200 mg tablet 04-29 00:00: 00 Yes [id number] 200mg Take 1 tablet by mouth daily. [facility] fluconazole (DIFLUCAN) 200 mg tablet 04-29 00:00: 00 Yes [id number] 200mg Take 1 tablet by mouth daily. [facility] fluconazole (DIFLUCAN) 200 mg tablet 04-29 00:00: 00 Yes [id number] 200mg Take 1 tablet by mouth daily. [facility] fluconazole (DIFLUCAN) 200 mg tablet 04-29 00:00: 00 Yes [id number] 200mg Take 1 tablet by mouth daily. [facility] fluconazole (DIFLUCAN) 200 mg tablet 04-29 00:00: 05-04 00:00 :00 No [id number] 200mg Take 1 tablet by mouth daily. [facility] [id number], carb,glu-FA -dss-dha (CITRANATAL DHA, ALGAL OIL,) 27 mg iron-1 mg -50 mg-250 mg Cmpk 15 00:00: 00 Yes [id number] 9106 Take 1 TAB-CAP/M2 by mouth daily. [facility] [id number], carb,glu-FA -dss-dha (CITRANATAL DHA, ALGAL OIL,) 27 mg iron-1 mg -50 mg-250 mg Cmpk -15 00:00: 00 Yes [id number] [id number] Take 1 TAB-CAP/M2 by mouth daily. [facility] [id number], carb,glu-FA -dss-dha (CITRANATAL DHA, ALGAL OIL,) 27 mg iron-1 mg -50 mg-250 mg Cmpk 4-15 00:00: 00 Yes [id number] 9106 Take 1 TAB-CAP/M2 by mouth daily. [facility] [id number], carb,glu-FA -dss-dha (CITRANATAL DHA, ALGAL OIL,) 27 mg iron-1 mg -50 mg-250 mg Cmpk 01-04 00:00: 00 Yes [id number] 9106 Take 1 TAB-CAP/M2 by mouth daily. [facility] [id number]-[id number], carb,glu-FA -dss-dha (CITRANATAL DHA, ALGAL OIL,) 27 mg iron-1 mg -50 mg-250 mg Cmpk 01-04 00:00: 00 Yes [id number] 9106 Take 1 TAB-CAP/M2 by mouth daily. [facility] [id number], carb,glu-FA -dss-dha (CITRANATAL DHA, ALGAL OIL,) 27 mg iron-1 mg -50 mg-250 mg Cmpk 15 00:00: 00 Yes [id number] [id number] Take 1 TAB-CAP/M2 by mouth daily. [facility] [id number], carb,glu-FA -dss-dha (CITRANATAL DHA, ALGAL OIL,) 27 mg iron-1 mg -50 mg-250 mg Cmpk 15 00:00: 00 Yes [id number] [id number] Take 1 TAB-CAP/M2 by mouth daily. [facility] [id number]-[id number], carb,glu-FA -dss-dha (CITRANATAL DHA, ALGAL OIL,) 27 mg iron-1 mg -50 mg-250 mg Cmpk 15 00:00: 00 Yes [id number] [id number] Take 1 TAB-CAP/M2 by mouth daily. [facility] [id number], carb,glu-FA -dss-dha (CITRANATAL DHA, ALGAL OIL,) 27 mg iron-1 mg -50 mg-250 mg Cmpk 4-15 00:00: 00 Yes [id number] [id number] Take 1 TAB-CAP/M2 by mouth daily. [facility] [id number]-[id number], carb,glu-FA -dss-dha (CITRANATAL DHA, ALGAL OIL,) 27 mg iron-1 mg -50 mg-250 mg Cmpk 0 4-15 00:00: 00 Yes [id number] 9106 Take 1 TAB-CAP/M2 by mouth daily. [facility] [id number], carb,glu-FA -dss-dha (CITRANATAL DHA, ALGAL OIL,) 27 mg iron-1 mg -50 mg-250 mg Cmpk 4-15 00:00: 00 Yes [id number] 9106 Take 1 TAB-CAP/M2 by mouth daily. [facility] [id number], carb,glu-FA -dss-dha (CITRANATAL DHA, ALGAL OIL,) 27 mg iron-1 mg -50 mg-250 mg Cmpk 4-15 00:00: 00 Yes [id number] 9106 Take 1 TAB-CAP/M2 by mouth daily. [facility] [id number], carb,glu-FA -dss-dha (CITRANATAL DHA, ALGAL OIL,) 27 mg iron-1 mg -50 mg-250 mg Cmpk 4-15 00:00: 00 Yes [id number] 9106 Take 1 TAB-CAP/M2 by mouth daily. [facility] Immunizations Ordered Immunization Name Filled Immunization Name Date Status Comments Source SARS-COV-2 COVID-19 VACCINE - (MODERNA) 2021-11-01 00:00:00 Completed [facility] SARS-COV-2 COVID-19 VACCINE - (MODERNA) 2021-11-01 00:00:00 Completed [facility] SARS-COV-2 COVID-19 VACCINE - (MODERNA) 2021-11-01 00:00:00 Completed [facility] SARS-COV-2 COVID-19 VACCINE - (MODERNA) 2021-11-01 00:00:00 Completed [facility] SARS-COV-2 COVID-19 VACCINE - (MODERNA) 2021-11-01 00:00:00 Completed [facility] SARS-COV-2 COVID-19 VACCINE - (MODERNA) 2021-11-01 00:00:00 Completed [facility] SARS-COV-2 COVID-19 VACCINE - (MODERNA) 2021-11-01 00:00:00 Completed [facility] SARS-COV-2 COVID-19 VACCINE - (MODERNA) 2021-11-01 00:00:00 Completed [facility] SARS-COV-2 COVID-19 VACCINE - (MODERNA) 2021-11-01 00:00:00 Completed [facility] SARS-COV-2 COVID-19 VACCINE - (MODERNA) 2021-11-01 00:00:00 Completed [facility] SARS-COV-2 COVID-19 VACCINE - (MODERNA) 2021-11-01 00:00:00 Completed [facility] SARS-COV-2 COVID-19 VACCINE - (MODERNA) 2021-11-01 00:00:00 Completed [facility] SARS-COV-2 COVID-19 VACCINE - (MODERNA) 2021-11-01 00:00:00 Completed [facility] SARS-COV-2 COVID-19 VACCINE - (MODERNA) 2021-11-01 00:00:00 Completed [facility] SARS-COV-2 COVID-19 VACCINE - (MODERNA) 2021-11-01 00:00:00 Completed [facility] SARS-COV-2 COVID-19 VACCINE - (MODERNA) 2021-11-01 00:00:00 Completed [facility] SARS-COV-2 COVID-19 VACCINE - (MODERNA) 2021-11-01 00:00:00 Completed [facility] SARS-COV-2 COVID-19 VACCINE - (MODERNA) 2021-11-01 00:00:00 Completed [facility] SARS-COV-2 COVID-19 VACCINE - (MODERNA) 2021-11-01 00:00:00 Completed [facility] SARS-COV-2 COVID-19 VACCINE - (MODERNA) 2021-11-01 00:00:00 Completed [facility] SARS-COV-2 COVID-19 VACCINE - (MODERNA) 2021-11-01 00:00:00 Completed [facility] SARS-COV-2 COVID-19 VACCINE - (MODERNA) 2021-06-08 00:00:00 Completed [facility] SARS-COV-2 COVID-19 VACCINE - (MODERNA) 2021-06-08 00:00:00 Completed [facility] SARS-COV-2 COVID-19 VACCINE - (MODERNA) 2021-06-08 00:00:00 Completed [facility] SARS-COV-2 COVID-19 VACCINE - (MODERNA) 2021-06-08 00:00:00 Completed [facility] SARS-COV-2 COVID-19 VACCINE - (MODERNA) 2021-06-08 00:00:00 Completed [facility] SARS-COV-2 COVID-19 VACCINE - (MODERNA) 2021-06-08 00:00:00 Completed [facility] SARS-COV-2 COVID-19 VACCINE - (MODERNA) 2021-06-08 00:00:00 Completed [facility] SARS-COV-2 COVID-19 VACCINE - (MODERNA) 2021-06-08 00:00:00 Completed [facility] SARS-COV-2 COVID-19 VACCINE - (MODERNA) 2021-06-08 00:00:00 Completed [facility] SARS-COV-2 COVID-19 VACCINE - (MODERNA) 2021-06-08 00:00:00 Completed [facility] SARS-COV-2 COVID-19 VACCINE - (MODERNA) 2021-06-08 00:00:00 Completed [facility] SARS-COV-2 COVID-19 VACCINE - (MODERNA) 2021-06-08 00:00:00 Completed [facility] SARS-COV-2 COVID-19 VACCINE - (MODERNA) 2021-06-08 00:00:00 Completed [facility] SARS-COV-2 COVID-19 VACCINE - (MODERNA) 2021-06-08 00:00:00 Completed [facility] SARS-COV-2 COVID-19 VACCINE - (MODERNA) 2021-06-08 00:00:00 Completed [facility] SARS-COV-2 COVID-19 VACCINE - (MODERNA) 2021-06-08 00:00:00 Completed [facility] SARS-COV-2 COVID-19 VACCINE - (MODERNA) 2021-06-08 00:00:00 Completed [facility] SARS-COV-2 COVID-19 VACCINE - (MODERNA) 2021-06-08 00:00:00 Completed [facility] SARS-COV-2 COVID-19 VACCINE - (MODERNA) 2021-06-08 00:00:00 Completed [facility] SARS-COV-2 COVID-19 VACCINE - (MODERNA) 2021-06-08 00:00:00 Completed [facility] SARS-COV-2 COVID-19 VACCINE - (MODERNA) 2021-06-08 00:00:00 Completed [facility] Influenza Virus Vaccine Quad .5 mL IM 6+ MO 2019-06-29 00:00:00 Completed [facility] Influenza Virus Vaccine Quad .5 mL IM 6+ MO 2019-06-29 00:00:00 Completed [facility] Influenza Virus Vaccine Quad .5 mL IM 6+ MO 2019-06-29 00:00:00 Completed [facility] Influenza Virus Vaccine Quad .5 mL IM 6+ MO 2019-06-29 00:00:00 Completed [facility] Influenza Virus Vaccine Quad .5 mL IM 6+ MO (FLUZONE/FLULAVAL/FL UARIX) 2019-06-29 00:00:00 Completed [facility] Influenza Virus Vaccine Quad .5 mL IM 6+ MO (FLUZONE/FLULAVAL/FL UARIX) 2019-06-29 00:00:00 Completed [facility] Influenza Virus Vaccine Quad .5 mL IM 6+ MO (FLUZONE/FLULAVAL/FL UARIX) 2019-06-29 00:00:00 Completed [facility] Influenza Virus Vaccine Quad .5 mL IM 6+ MO (FLUZONE/FLULAVAL/FL UARIX) 2019-06-29 00:00:00 Completed [facility] Influenza Virus Vaccine Quad .5 mL IM 6+ MO 2019-06-29 00:00:00 Completed [facility] Influenza Virus Vaccine Quad .5 mL IM 6+ MO 2019-06-29 00:00:00 Completed [facility] Influenza Virus Vaccine Quad .5 mL IM 6+ MO 2019-06-29 00:00:00 Completed [facility] Influenza Virus Vaccine Quad .5 mL IM 6+ MO 2019-06-29 00:00:00 Completed [facility] Influenza Virus Vaccine Quad .5 mL IM 6+ MO 2019-06-29 00:00:00 Completed [facility] Influenza Virus Vaccine Quad .5 mL IM 6+ MO 2019-06-29 00:00:00 Completed [facility] Influenza Virus Vaccine Quad .5 mL IM 6+ MO 2019-06-29 00:00:00 Completed [facility] Influenza Virus Vaccine Quad .5 mL IM 6+ MO 2019-06-29 00:00:00 Completed [facility] Influenza Virus Vaccine Quad .5 mL IM 6+ MO 2019-06-29 00:00:00 Completed [facility] Influenza Virus Vaccine Quad .5 mL IM 6+ MO 2019-06-29 00:00:00 Completed [facility] Influenza Virus Vaccine Quad .5 mL IM 6+ MO 2019-06-29 00:00:00 Completed [facility] Influenza Virus Vaccine Quad .5 mL IM 6+ MO 2019-06-29 00:00:00 Completed [facility] Influenza Virus Vaccine Quad .5 mL IM 6+ MO 2019-06-29 00:00:00 Completed [facility] Influenza Virus Vaccine Quad .5 mL IM 6+ MO 2019-06-29 00:00:00 Completed [facility] Influenza Virus Vaccine Quad .5 mL IM 6+ MO 2019-06-29 00:00:00 Completed [facility] Influenza Virus Vaccine Quad .5 mL IM 6+ MO 2019-06-29 00:00:00 Completed [facility] TDAP (ADACEL) VACCINE 2019-05-27 00:00:00 Completed [facility] TDAP (ADACEL) VACCINE 2019-05-27 00:00:00 Completed [facility] TDAP (ADACEL) VACCINE 2019-05-27 00:00:00 Completed [facility] TDAP (ADACEL) VACCINE 2019-05-27 00:00:00 Completed [facility] TDAP (ADACEL) VACCINE 2019-05-27 00:00:00 Completed [facility] TDAP (ADACEL) VACCINE 2019-05-27 00:00:00 Completed [facility] TDAP (ADACEL) VACCINE 2019-05-27 00:00:00 Completed [facility] TDAP (ADACEL) VACCINE 2019-05-27 00:00:00 Completed [facility] TDAP (ADACEL) VACCINE 2019-05-27 00:00:00 Completed [facility] TDAP (ADACEL) VACCINE 2019-05-27 00:00:00 Completed [facility] TDAP (ADACEL) VACCINE 2019-05-27 00:00:00 Completed [facility] TDAP (ADACEL) VACCINE 2019-05-27 00:00:00 Completed [facility] TDAP (ADACEL) VACCINE 2019-05-27 00:00:00 Completed [facility] TDAP (ADACEL) VACCINE 2019-05-27 00:00:00 Completed [facility] TDAP (ADACEL) VACCINE 2019-05-27 00:00:00 Completed [facility] TDAP (ADACEL) VACCINE 2019-05-27 00:00:00 Completed [facility] TDAP (ADACEL) VACCINE 2019-05-27 00:00:00 Completed [facility] TDAP (ADACEL) VACCINE 2019-05-27 00:00:00 Completed [facility] TDAP (ADACEL) VACCINE 2019-05-27 00:00:00 Completed [facility] TDAP (ADACEL) VACCINE 2019-05-27 00:00:00 Completed [facility] TDAP (ADACEL) VACCINE 2019-05-27 00:00:00 Completed [facility] TDAP (ADACEL) VACCINE 2019-05-27 00:00:00 Completed [facility] TDAP (ADACEL) VACCINE 2019-05-27 00:00:00 Completed [facility] TDAP (ADACEL) VACCINE 2019-05-27 00:00:00 Completed [facility] TDAP (ADACEL) VACCINE 2019-05-27 00:00:00 Completed [facility] TDAP (ADACEL) VACCINE 2019-04-01 00:00:00 Completed [facility] TDAP (ADACEL) VACCINE 2019-04-01 00:00:00 Completed [facility] TDAP (ADACEL) VACCINE 2019-04-01 00:00:00 Completed [facility] TDAP (ADACEL) VACCINE 2019-04-01 00:00:00 Completed [facility] TDAP (ADACEL) VACCINE 2019-04-01 00:00:00 Completed [facility] TDAP (ADACEL) VACCINE 2019-04-01 00:00:00 Completed [facility] TDAP (ADACEL) VACCINE 2019-04-01 00:00:00 Completed [facility] TDAP (ADACEL) VACCINE 2019-04-01 00:00:00 Completed [facility] TDAP (ADACEL) VACCINE 2019-04-01 00:00:00 Completed [facility] TDAP (ADACEL) VACCINE 2019-04-01 00:00:00 Completed [facility] TDAP (ADACEL) VACCINE 2019-04-01 00:00:00 Completed [facility] TDAP (ADACEL) VACCINE 2019-04-01 00:00:00 Completed [facility] TDAP (ADACEL) VACCINE 2019-04-01 00:00:00 Completed [facility] TDAP (ADACEL) VACCINE 2019-04-01 00:00:00 Completed [facility] TDAP (ADACEL) VACCINE 2019-04-01 00:00:00 Completed [facility] TDAP (ADACEL) VACCINE 2019-04-01 00:00:00 Completed [facility] TDAP (ADACEL) VACCINE 2019-04-01 00:00:00 Completed [facility] TDAP (ADACEL) VACCINE 2019-04-01 00:00:00 Completed [facility] TDAP (ADACEL) VACCINE 2019-04-01 00:00:00 Completed [facility] TDAP (ADACEL) VACCINE 2019-04-01 00:00:00 Completed [facility] TDAP (ADACEL) VACCINE 2019-04-01 00:00:00 Completed [facility] TDAP (ADACEL) VACCINE 2019-04-01 00:00:00 Completed [facility] TDAP (ADACEL) VACCINE 2019-04-01 00:00:00 Completed [facility] TDAP (ADACEL) VACCINE 2019-04-01 00:00:00 Completed [facility] TDAP (ADACEL) VACCINE 2019-04-01 00:00:00 Completed [facility] TDAP (ADACEL) VACCINE 2019-04-01 00:00:00 Completed [facility] TDAP (ADACEL) VACCINE 2019-04-01 00:00:00 Completed [facility] TDAP (ADACEL) VACCINE 2019-04-01 00:00:00 Completed [facility] TDAP (ADACEL) VACCINE 2019-04-01 00:00:00 Completed [facility] TDAP (ADACEL) VACCINE 2019-04-01 00:00:00 Completed [facility] TDAP (ADACEL) VACCINE 2019-04-01 00:00:00 Completed [facility] TDAP (ADACEL) VACCINE 2019-04-01 00:00:00 Completed [facility] TDAP (ADACEL) VACCINE 2019-04-01 00:00:00 Completed [facility] TDAP (ADACEL) VACCINE 2019-04-01 00:00:00 Completed [facility] TDAP (ADACEL) VACCINE 2019-04-01 00:00:00 Completed [facility] TDAP (ADACEL) VACCINE 2019-04-01 00:00:00 Completed [facility] TDAP (ADACEL) VACCINE 2019-04-01 00:00:00 Completed [facility] Influenza Virus Vaccine Quad .5 mL IM 6+ MO 2019-01-04 00:00:00 Completed [facility] Influenza Virus Vaccine Quad .5 mL IM 6+ MO 2019-01-04 00:00:00 Completed [facility] Influenza Virus Vaccine Quad .5 mL IM 6+ MO 2019-01-04 00:00:00 Completed [facility] Influenza Virus Vaccine Quad .5 mL IM 6+ MO 2019-01-04 00:00:00 Completed [facility] Influenza Virus Vaccine Quad .5 mL IM 6+ MO 2019-01-04 00:00:00 Completed [facility] Influenza Virus Vaccine Quad .5 mL IM 6+ MO (FLUZONE/FLULAVAL/FL UARIX) 2019-01-04 00:00:00 Completed [facility] Influenza Virus Vaccine Quad .5 mL IM 6+ MO (FLUZONE/FLULAVAL/FL UARIX) 2019-01-04 00:00:00 Completed [facility] Influenza Virus Vaccine Quad .5 mL IM 6+ MO (FLUZONE/FLULAVAL/FL UARIX) 2019-01-04 00:00:00 Completed [facility] Influenza Virus Vaccine Quad .5 mL IM 6+ MO (FLUZONE/FLULAVAL/FL UARIX) 2019-01-04 00:00:00 Completed [facility] Influenza Virus Vaccine Quad .5 mL IM 6+ MO 2019-01-04 00:00:00 Completed [facility] Influenza Virus Vaccine Quad .5 mL IM 6+ MO 2019-01-04 00:00:00 Completed [facility] Influenza Virus Vaccine Quad .5 mL IM 6+ MO 2019-01-04 00:00:00 Completed [facility] Influenza Virus Vaccine Quad .5 mL IM 6+ MO 2019-01-04 00:00:00 Completed [facility] Influenza Virus Vaccine Quad .5 mL IM 6+ MO 2019-01-04 00:00:00 Completed [facility] Influenza Virus Vaccine Quad .5 mL IM 6+ MO 2019-01-04 00:00:00 Completed [facility] Influenza Virus Vaccine Quad .5 mL IM 6+ MO 2019-01-04 00:00:00 Completed [facility] Influenza Virus Vaccine Quad .5 mL IM 6+ MO 2019-01-04 00:00:00 Completed [facility] Influenza Virus Vaccine Quad .5 mL IM 6+ MO 2019-01-04 00:00:00 Completed [facility] Influenza Virus Vaccine Quad .5 mL IM 6+ MO 2019-01-04 00:00:00 Completed [facility] Influenza Virus Vaccine Quad .5 mL IM 6+ MO 2019-01-04 00:00:00 Completed [facility] Influenza Virus Vaccine Quad .5 mL IM 6+ MO 2019-01-04 00:00:00 Completed [facility] Influenza Virus Vaccine Quad .5 mL IM 6+ MO 2019-01-04 00:00:00 Completed [facility] Influenza Virus Vaccine Quad .5 mL IM 6+ MO 2019-01-04 00:00:00 Completed [facility] Influenza Virus Vaccine Quad .5 mL IM 6+ MO 2019-01-04 00:00:00 Completed [facility] Influenza Virus Vaccine Quad .5 mL IM 6+ MO 2019-01-04 00:00:00 Completed [facility] Influenza Virus Vaccine Quad .5 mL IM 6+ MO 2019-01-04 00:00:00 Completed [facility] Influenza Virus Vaccine Quad .5 mL IM 6+ MO 2019-01-04 00:00:00 Completed [facility] Influenza Virus Vaccine Quad .5 mL IM 6+ MO 2019-01-04 00:00:00 Completed [facility] Influenza Virus Vaccine Quad .5 mL IM 6+ MO 2019-01-04 00:00:00 Completed [facility] Influenza Virus Vaccine Quad .5 mL IM 6+ MO 2019-01-04 00:00:00 Completed [facility] Influenza Virus Vaccine Quad .5 mL IM 6+ MO 2019-01-04 00:00:00 Completed [facility] Influenza Virus Vaccine Quad .5 mL IM 6+ MO 2019-01-04 00:00:00 Completed [facility] Influenza Virus Vaccine Quad .5 mL IM 6+ MO 2019-01-04 00:00:00 Completed [facility] Influenza Virus Vaccine Quad .5 mL IM 6+ MO 2019-01-04 00:00:00 Completed [facility] Influenza Virus Vaccine Quad .5 mL IM 6+ MO 2019-01-04 00:00:00 Completed [facility] Influenza Virus Vaccine Quad .5 mL IM 6+ MO 2019-01-04 00:00:00 Completed [facility] Influenza Virus Vaccine Quad .5 mL IM 6+ MO 2019-01-04 00:00:00 Completed [facility] HPV 2015-04-13 00:00:00 Completed [facility] Meningococcal Polysaccharide (groups A, C, Y and W-135) conjugate vaccine (MCV4P) 2015-04-13 00:00:00 Completed [facility] TDAP (ADACEL) VACCINE 2015-04-13 00:00:00 Completed [facility] HPV 2015-04-13 00:00:00 Completed [facility] Meningococcal Polysaccharide (groups A, C, Y and W-135) conjugate vaccine (MCV4P) 2015-04-13 00:00:00 Completed [facility] TDAP (ADACEL) VACCINE 2015-04-13 00:00:00 Completed [facility] HPV 2015-04-13 00:00:00 Completed [facility] HPV 2015-04-13 00:00:00 Completed [facility] Meningococcal Polysaccharide (groups A, C, Y and W-135) conjugate vaccine (MCV4P) 2015-04-13 00:00:00 Completed [facility] TDAP (ADACEL) VACCINE 2015-04-13 00:00:00 Completed [facility] Meningococcal Polysaccharide (groups A, C, Y and W-135) conjugate vaccine (MCV4P) 2015-04-13 00:00:00 Completed [facility] TDAP (ADACEL) VACCINE 2015-04-13 00:00:00 Completed [facility] HPV 2015-04-13 00:00:00 Completed [facility] Meningococcal Polysaccharide (groups A, C, Y and W-135) conjugate vaccine (MCV4P) 2015-04-13 00:00:00 Completed [facility] TDAP (ADACEL) VACCINE 2015-04-13 00:00:00 Completed [facility] HPV 2015-04-13 00:00:00 Completed [facility] Meningococcal Polysaccharide (groups A, C, Y and W-135) conjugate vaccine (MCV4P) 2015-04-13 00:00:00 Completed [facility] TDAP (ADACEL) VACCINE 2015-04-13 00:00:00 Completed [facility] HPV 2015-04-13 00:00:00 Completed [facility] Meningococcal Polysaccharide (groups A, C, Y and W-135) conjugate vaccine (MCV4P) 2015-04-13 00:00:00 Completed [facility] TDAP (ADACEL) VACCINE 2015-04-13 00:00:00 Completed [facility] HPV 2015-04-13 00:00:00 Completed [facility] Meningococcal Polysaccharide (groups A, C, Y and W-135) conjugate vaccine (MCV4P) 2015-04-13 00:00:00 Completed [facility] TDAP (ADACEL) VACCINE 2015-04-13 00:00:00 Completed [facility] HPV 2015-04-13 00:00:00 Completed [facility] Meningococcal Polysaccharide (groups A, C, Y and W-135) conjugate vaccine (MCV4P) 2015-04-13 00:00:00 Completed [facility] TDAP (ADACEL) VACCINE 2015-04-13 00:00:00 Completed [facility] HPV 2015-04-13 00:00:00 Completed [facility] Meningococcal Polysaccharide (groups A, C, Y and W-135) conjugate vaccine (MCV4P) 2015-04-13 00:00:00 Completed [facility] TDAP (ADACEL) VACCINE 2015-04-13 00:00:00 Completed [facility] HPV 2015-04-13 00:00:00 Completed [facility] Meningococcal Polysaccharide (groups A, C, Y and W-135) conjugate vaccine (MCV4P) 2015-04-13 00:00:00 Completed [facility] TDAP (ADACEL) VACCINE 2015-04-13 00:00:00 Completed [facility] HPV 2015-04-13 00:00:00 Completed [facility] Meningococcal Polysaccharide (groups A, C, Y and W-135) conjugate vaccine (MCV4P) 2015-04-13 00:00:00 Completed [facility] TDAP (ADACEL) VACCINE 2015-04-13 00:00:00 Completed [facility] HPV 2015-04-13 00:00:00 Completed [facility] Meningococcal Polysaccharide (groups A, C, Y and W-135) conjugate vaccine (MCV4P) 2015-04-13 00:00:00 Completed [facility] TDAP (ADACEL) VACCINE 2015-04-13 00:00:00 Completed [facility] HPV 2015-04-13 00:00:00 Completed [facility] Meningococcal Polysaccharide (groups A, C, Y and W-135) conjugate vaccine (MCV4P) 2015-04-13 00:00:00 Completed [facility] TDAP (ADACEL) VACCINE 2015-04-13 00:00:00 Completed [facility] HPV 2015-04-13 00:00:00 Completed [facility] Meningococcal Polysaccharide (groups A, C, Y and W-135) conjugate vaccine (MCV4P) 2015-04-13 00:00:00 Completed [facility] TDAP (ADACEL) VACCINE 2015-04-13 00:00:00 Completed [facility] HPV 2015-04-13 00:00:00 Completed [facility] Meningococcal Polysaccharide (groups A, C, Y and W-135) conjugate vaccine (MCV4P) 2015-04-13 00:00:00 Completed [facility] TDAP (ADACEL) VACCINE 2015-04-13 00:00:00 Completed [facility] HPV 2015-04-13 00:00:00 Completed [facility] Meningococcal Polysaccharide (groups A, C, Y and W-135) conjugate vaccine (MCV4P) 2015-04-13 00:00:00 Completed [facility] TDAP (ADACEL) VACCINE 2015-04-13 00:00:00 Completed [facility] HPV 2015-04-13 00:00:00 Completed [facility] Meningococcal Polysaccharide (groups A, C, Y and W-135) conjugate vaccine (MCV4P) 2015-04-13 00:00:00 Completed [facility] TDAP (ADACEL) VACCINE 2015-04-13 00:00:00 Completed [facility] HPV 2015-04-13 00:00:00 Completed [facility] Meningococcal Polysaccharide (groups A, C, Y and W-135) conjugate vaccine (MCV4P) 2015-04-13 00:00:00 Completed [facility] HPV 2015-04-13 00:00:00 Completed [facility] Meningococcal Polysaccharide (groups A, C, Y and W-135) conjugate vaccine (MCV4P) 2015-04-13 00:00:00 Completed [facility] TDAP (ADACEL) VACCINE 2015-04-13 00:00:00 Completed [facility] TDAP (ADACEL) VACCINE 2015-04-13 00:00:00 Completed [facility] HPV 2015-04-13 00:00:00 Completed [facility] Meningococcal Polysaccharide (groups A, C, Y and W-135) conjugate vaccine (MCV4P) 2015-04-13 00:00:00 Completed [facility] TDAP (ADACEL) VACCINE 2015-04-13 00:00:00 Completed [facility] HPV 2015-04-13 00:00:00 Completed [facility] Meningococcal Polysaccharide (groups A, C, Y and W-135) conjugate vaccine (MCV4P) 2015-04-13 00:00:00 Completed [facility] TDAP (ADACEL) VACCINE 2015-04-13 00:00:00 Completed [facility] HPV 2015-04-13 00:00:00 Completed [facility] Meningococcal Polysaccharide (groups A, C, Y and W-135) conjugate vaccine (MCV4P) 2015-04-13 00:00:00 Completed [facility] TDAP (ADACEL) VACCINE 2015-04-13 00:00:00 Completed [facility] HPV 2015-04-13 00:00:00 Completed [facility] Meningococcal Polysaccharide (groups A, C, Y and W-135) conjugate vaccine (MCV4P) 2015-04-13 00:00:00 Completed [facility] TDAP (ADACEL) VACCINE 2015-04-13 00:00:00 Completed [facility] HPV 2015-04-13 00:00:00 Completed [facility] Meningococcal Polysaccharide (groups A, C, Y and W-135) conjugate vaccine (MCV4P) 2015-04-13 00:00:00 Completed [facility] TDAP (ADACEL) VACCINE 2015-04-13 00:00:00 Completed [facility] HPV 2015-04-13 00:00:00 Completed [facility] Meningococcal Polysaccharide (groups A, C, Y and W-135) conjugate vaccine (MCV4P) 2015-04-13 00:00:00 Completed [facility] TDAP (ADACEL) VACCINE 2015-04-13 00:00:00 Completed [facility] HPV 2015-04-13 00:00:00 Completed [facility] Meningococcal Polysaccharide (groups A, C, Y and W-135) conjugate vaccine (MCV4P) 2015-04-13 00:00:00 Completed [facility] TDAP (ADACEL) VACCINE 2015-04-13 00:00:00 Completed [facility] HPV 2015-04-13 00:00:00 Completed [facility] Meningococcal Polysaccharide (groups A, C, Y and W-135) conjugate vaccine (MCV4P) 2015-04-13 00:00:00 Completed [facility] HPV 2015-04-13 00:00:00 Completed [facility] Meningococcal Polysaccharide (groups A, C, Y and W-135) conjugate vaccine (MCV4P) 2015-04-13 00:00:00 Completed [facility] TDAP (ADACEL) VACCINE 2015-04-13 00:00:00 Completed [facility] TDAP (ADACEL) VACCINE 2015-04-13 00:00:00 Completed [facility] HPV 2015-04-13 00:00:00 Completed [facility] Meningococcal Polysaccharide (groups A, C, Y and W-135) conjugate vaccine (MCV4P) 2015-04-13 00:00:00 Completed [facility] TDAP (ADACEL) VACCINE 2015-04-13 00:00:00 Completed [facility] HPV 2015-04-13 00:00:00 Completed [facility] Meningococcal Polysaccharide (groups A, C, Y and W-135) conjugate vaccine (MCV4P) 2015-04-13 00:00:00 Completed [facility] TDAP (ADACEL) VACCINE 2015-04-13 00:00:00 Completed [facility] HPV 2015-04-13 00:00:00 Completed [facility] Meningococcal Polysaccharide (groups A, C, Y and W-135) conjugate vaccine (MCV4P) 2015-04-13 00:00:00 Completed [facility] TDAP (ADACEL) VACCINE 2015-04-13 00:00:00 Completed [facility] HPV 2015-04-13 00:00:00 Completed [facility] Meningococcal Polysaccharide (groups A, C, Y and W-135) conjugate vaccine (MCV4P) 2015-04-13 00:00:00 Completed [facility] TDAP (ADACEL) VACCINE 2015-04-13 00:00:00 Completed [facility] HPV 2015-04-13 00:00:00 Completed [facility] Meningococcal Polysaccharide (groups A, C, Y and W-135) conjugate vaccine (MCV4P) 2015-04-13 00:00:00 Completed [facility] TDAP (ADACEL) VACCINE 2015-04-13 00:00:00 Completed [facility] HPV 2015-04-13 00:00:00 Completed [facility] Meningococcal Polysaccharide (groups A, C, Y and W-135) conjugate vaccine (MCV4P) 2015-04-13 00:00:00 Completed [facility] TDAP (ADACEL) VACCINE 2015-04-13 00:00:00 Completed [facility] HPV 2015-04-13 00:00:00 Completed [facility] Meningococcal Polysaccharide (groups A, C, Y and W-135) conjugate vaccine (MCV4P) 2015-04-13 00:00:00 Completed [facility] TDAP (ADACEL) VACCINE 2015-04-13 00:00:00 Completed [facility] HPV 2015-04-13 00:00:00 Completed [facility] Meningococcal Polysaccharide (groups A, C, Y and W-135) conjugate vaccine (MCV4P) 2015-04-13 00:00:00 Completed [facility] TDAP (ADACEL) VACCINE 2015-04-13 00:00:00 Completed [facility] HPV 2012-06-29 00:00:00 Completed [facility] HPV 2012-06-29 00:00:00 Completed [facility] HPV 2012-06-29 00:00:00 Completed [facility] HPV 2012-06-29 00:00:00 Completed [facility] HPV 2012-06-29 00:00:00 Completed [facility] HPV 2012-06-29 00:00:00 Completed [facility] HPV 2012-06-29 00:00:00 Completed [facility] HPV 2012-06-29 00:00:00 Completed [facility] HPV 2012-06-29 00:00:00 Completed [facility] HPV 2012-06-29 00:00:00 Completed [facility] HPV 2012-06-29 00:00:00 Completed [facility] HPV 2012-06-29 00:00:00 Completed [facility] HPV 2012-06-29 00:00:00 Completed [facility] HPV 2012-06-29 00:00:00 Completed [facility] HPV 2012-06-29 00:00:00 Completed [facility] HPV 2012-06-29 00:00:00 Completed [facility] HPV 2012-06-29 00:00:00 Completed [facility] HPV 2012-06-29 00:00:00 Completed [facility] HPV 2012-06-29 00:00:00 Completed [facility] HPV 2012-06-29 00:00:00 Completed [facility] HPV 2012-06-29 00:00:00 Completed [facility] HPV 2012-06-29 00:00:00 Completed [facility] HPV 2012-06-29 00:00:00 Completed [facility] HPV 2012-06-29 00:00:00 Completed [facility] Tetanus/Diptheria 2009-12-12 00:00:00 Completed [facility] Meningococcal Polysaccharide (groups A, C, Y and W-135) conjugate vaccine (MCV4P) 2009-12-12 00:00:00 Completed [facility] Varicella (varivax)(chicken pox) 2009-12-12 00:00:00 Completed [facility] HEPATITIS A 2009-12-12 00:00:00 Completed [facility] Tetanus/Diptheria 2009-12-12 00:00:00 Completed [facility] Meningococcal Polysaccharide (groups A, C, Y and W-135) conjugate vaccine (MCV4P) 2009-12-12 00:00:00 Completed [facility] Varicella (varivax)(chicken pox) 2009-12-12 00:00:00 Completed [facility] HEPATITIS A 2009-12-12 00:00:00 Completed [facility] Tetanus/Diptheria 2009-12-12 00:00:00 Completed [facility] Meningococcal Polysaccharide (groups A, C, Y and W-135) conjugate vaccine (MCV4P) 2009-12-12 00:00:00 Completed [facility] Varicella (varivax)(chicken pox) 2009-12-12 00:00:00 Completed [facility] HEPATITIS A 2009-12-12 00:00:00 Completed [facility] Tetanus/Diptheria 2009-12-12 00:00:00 Completed [facility] Meningococcal Polysaccharide (groups A, C, Y and W-135) conjugate vaccine (MCV4P) 2009-12-12 00:00:00 Completed [facility] Varicella (varivax)(chicken pox) 2009-12-12 00:00:00 Completed [facility] HEPATITIS A 2009-12-12 00:00:00 Completed [facility] Tetanus/Diptheria 2009-12-12 00:00:00 Completed [facility] Meningococcal Polysaccharide (groups A, C, Y and W-135) conjugate vaccine (MCV4P) 2009-12-12 00:00:00 Completed [facility] Varicella (varivax)(chicken pox) 2009-12-12 00:00:00 Completed [facility] HEPATITIS A 2009-12-12 00:00:00 Completed [facility] Tetanus/Diptheria 2009-12-12 00:00:00 Completed [facility] Meningococcal Polysaccharide (groups A, C, Y and W-135) conjugate vaccine (MCV4P) 2009-12-12 00:00:00 Completed [facility] Varicella (varivax)(chicken pox) 2009-12-12 00:00:00 Completed [facility] HEPATITIS A 2009-12-12 00:00:00 Completed [facility] Tetanus/Diptheria 2009-12-12 00:00:00 Completed [facility] Meningococcal Polysaccharide (groups A, C, Y and W-135) conjugate vaccine (MCV4P) 2009-12-12 00:00:00 Completed [facility] Varicella (varivax)(chicken pox) 2009-12-12 00:00:00 Completed [facility] HEPATITIS A 2009-12-12 00:00:00 Completed [facility] Tetanus/Diptheria 2009-12-12 00:00:00 Completed [facility] Meningococcal Polysaccharide (groups A, C, Y and W-135) conjugate vaccine (MCV4P) 2009-12-12 00:00:00 Completed [facility] Varicella (varivax)(chicken pox) 2009-12-12 00:00:00 Completed [facility] HEPATITIS A 2009-12-12 00:00:00 Completed [facility] Tetanus/Diptheria 2009-12-12 00:00:00 Completed [facility] Meningococcal Polysaccharide (groups A, C, Y and W-135) conjugate vaccine (MCV4P) 2009-12-12 00:00:00 Completed [facility] Varicella (varivax)(chicken pox) 2009-12-12 00:00:00 Completed [facility] Meningococcal Polysaccharide (groups A, C, Y and W-135) conjugate vaccine (MCV4P) 2009-12-12 00:00:00 Completed [facility] Varicella (varivax)(chicken pox) 2009-12-12 00:00:00 Completed [facility] Meningococcal Polysaccharide (groups A, C, Y and W-135) conjugate vaccine (MCV4P) 2009-12-12 00:00:00 Completed [facility] Varicella (varivax)(chicken pox) 2009-12-12 00:00:00 Completed [facility] Meningococcal Polysaccharide (groups A, C, Y and W-135) conjugate vaccine (MCV4P) 2009-12-12 00:00:00 Completed [facility] Varicella (varivax)(chicken pox) 2009-12-12 00:00:00 Completed [facility] HEPATITIS A 2009-12-12 00:00:00 Completed [facility] Tetanus/Diptheria 2009-12-12 00:00:00 Completed [facility] Meningococcal Polysaccharide (groups A, C, Y and W-135) conjugate vaccine (MCV4P) 2009-12-12 00:00:00 Completed [facility] Varicella (varivax)(chicken pox) 2009-12-12 00:00:00 Completed [facility] HEPATITIS A 2009-12-12 00:00:00 Completed [facility] Tetanus/Diptheria 2009-12-12 00:00:00 Completed [facility] Meningococcal Polysaccharide (groups A, C, Y and W-135) conjugate vaccine (MCV4P) 2009-12-12 00:00:00 Completed [facility] Varicella (varivax)(chicken pox) 2009-12-12 00:00:00 Completed [facility] HEPATITIS A 2009-12-12 00:00:00 Completed [facility] Tetanus/Diptheria 2009-12-12 00:00:00 Completed [facility] Meningococcal Polysaccharide (groups A, C, Y and W-135) conjugate vaccine (MCV4P) 2009-12-12 00:00:00 Completed [facility] Varicella (varivax)(chicken pox) 2009-12-12 00:00:00 Completed [facility] HEPATITIS A 2009-12-12 00:00:00 Completed [facility] Tetanus/Diptheria 2009-12-12 00:00:00 Completed [facility] Meningococcal Polysaccharide (groups A, C, Y and W-135) conjugate vaccine (MCV4P) 2009-12-12 00:00:00 Completed [facility] Varicella (varivax)(chicken pox) 2009-12-12 00:00:00 Completed [facility] HEPATITIS A 2009-12-12 00:00:00 Completed [facility] Tetanus/Diptheria 2009-12-12 00:00:00 Completed [facility] Meningococcal Polysaccharide (groups A, C, Y and W-135) conjugate vaccine (MCV4P) 2009-12-12 00:00:00 Completed [facility] Varicella (varivax)(chicken pox) 2009-12-12 00:00:00 Completed [facility] HEPATITIS A 2009-12-12 00:00:00 Completed [facility] Tetanus/Diptheria 2009-12-12 00:00:00 Completed [facility] Meningococcal Polysaccharide (groups A, C, Y and W-135) conjugate vaccine (MCV4P) 2009-12-12 00:00:00 Completed [facility] Varicella (varivax)(chicken pox) 2009-12-12 00:00:00 Completed [facility] HEPATITIS A 2009-12-12 00:00:00 Completed [facility] Tetanus/Diptheria 2009-12-12 00:00:00 Completed [facility] Meningococcal Polysaccharide (groups A, C, Y and W-135) conjugate vaccine (MCV4P) 2009-12-12 00:00:00 Completed [facility] Varicella (varivax)(chicken pox) 2009-12-12 00:00:00 Completed [facility] HEPATITIS A 2009-12-12 00:00:00 Completed [facility] Tetanus/Diptheria 2009-12-12 00:00:00 Completed [facility] Meningococcal Polysaccharide (groups A, C, Y and W-135) conjugate vaccine (MCV4P) 2009-12-12 00:00:00 Completed [facility] Varicella (varivax)(chicken pox) 2009-12-12 00:00:00 Completed [facility] HEPATITIS A 2009-12-12 00:00:00 Completed [facility] Tetanus/Diptheria 2009-12-12 00:00:00 Completed [facility] Meningococcal Polysaccharide (groups A, C, Y and W-135) conjugate vaccine (MCV4P) 2009-12-12 00:00:00 Completed [facility] Varicella (varivax)(chicken pox) 2009-12-12 00:00:00 Completed [facility] HEPATITIS A 2009-12-12 00:00:00 Completed [facility] Tetanus/Diptheria 2009-12-12 00:00:00 Completed [facility] Meningococcal Polysaccharide (groups A, C, Y and W-135) conjugate vaccine (MCV4P) 2009-12-12 00:00:00 Completed [facility] Varicella (varivax)(chicken pox) 2009-12-12 00:00:00 Completed [facility] HEPATITIS A 2009-12-12 00:00:00 Completed [facility] Tetanus/Diptheria 2009-12-12 00:00:00 Completed [facility] Meningococcal Polysaccharide (groups A, C, Y and W-135) conjugate vaccine (MCV4P) 2009-12-12 00:00:00 Completed [facility] Varicella (varivax)(chicken pox) 2009-12-12 00:00:00 Completed [facility] HEPATITIS A 2009-12-12 00:00:00 Completed [facility] Tetanus/Diptheria 2009-12-12 00:00:00 Completed [facility] Meningococcal Polysaccharide (groups A, C, Y and W-135) conjugate vaccine (MCV4P) 2009-12-12 00:00:00 Completed [facility] Varicella (varivax)(chicken pox) 2009-12-12 00:00:00 Completed [facility] HEPATITIS A 2009-12-12 00:00:00 Completed [facility] DTaP, Unspecified Formulation 2003-04-28 00:00:00 Completed [facility] MMR 2003-04-28 00:00:00 Completed [facility] IPV 2003-04-28 00:00:00 Completed [facility] DTaP, Unspecified Formulation 2003-04-28 00:00:00 Completed [facility] MMR 2003-04-28 00:00:00 Completed [facility] IPV 2003-04-28 00:00:00 Completed [facility] DTaP, Unspecified Formulation 2003-04-28 00:00:00 Completed [facility] MMR 2003-04-28 00:00:00 Completed [facility] IPV 2003-04-28 00:00:00 Completed [facility] DTaP, Unspecified Formulation 2003-04-28 00:00:00 Completed [facility] MMR 2003-04-28 00:00:00 Completed [facility] IPV 2003-04-28 00:00:00 Completed [facility] DTaP, Unspecified Formulation 2003-04-28 00:00:00 Completed [facility] MMR 2003-04-28 00:00:00 Completed [facility] IPV 2003-04-28 00:00:00 Completed [facility] DTaP, Unspecified Formulation 2003-04-28 00:00:00 Completed [facility] MMR 2003-04-28 00:00:00 Completed [facility] IPV 2003-04-28 00:00:00 Completed [facility] DTaP, Unspecified Formulation 2003-04-28 00:00:00 Completed [facility] MMR 2003-04-28 00:00:00 Completed [facility] IPV 2003-04-28 00:00:00 Completed [facility] DTaP, Unspecified Formulation 2003-04-28 00:00:00 Completed [facility] MMR 2003-04-28 00:00:00 Completed [facility] IPV 2003-04-28 00:00:00 Completed [facility] DTaP, Unspecified Formulation 2003-04-28 00:00:00 Completed [facility] MMR 2003-04-28 00:00:00 Completed [facility] IPV 2003-04-28 00:00:00 Completed [facility] DTaP, Unspecified Formulation 2003-04-28 00:00:00 Completed [facility] MMR 2003-04-28 00:00:00 Completed [facility] IPV 2003-04-28 00:00:00 Completed [facility] DTaP, Unspecified Formulation 2003-04-28 00:00:00 Completed [facility] MMR 2003-04-28 00:00:00 Completed [facility] IPV 2003-04-28 00:00:00 Completed [facility] DTaP, Unspecified Formulation 2003-04-28 00:00:00 Completed [facility] MMR 2003-04-28 00:00:00 Completed [facility] IPV 2003-04-28 00:00:00 Completed [facility] DTaP, Unspecified Formulation 2003-04-28 00:00:00 Completed [facility] MMR 2003-04-28 00:00:00 Completed [facility] IPV 2003-04-28 00:00:00 Completed [facility] DTaP, Unspecified Formulation 2003-04-28 00:00:00 Completed [facility] MMR 2003-04-28 00:00:00 Completed [facility] IPV 2003-04-28 00:00:00 Completed [facility] DTaP, Unspecified Formulation 2003-04-28 00:00:00 Completed [facility] MMR 2003-04-28 00:00:00 Completed [facility] IPV 2003-04-28 00:00:00 Completed [facility] DTaP, Unspecified Formulation 2003-04-28 00:00:00 Completed [facility] MMR 2003-04-28 00:00:00 Completed [facility] IPV 2003-04-28 00:00:00 Completed [facility] DTaP, Unspecified Formulation 2003-04-28 00:00:00 Completed [facility] MMR 2003-04-28 00:00:00 Completed [facility] IPV 2003-04-28 00:00:00 Completed [facility] DTaP, Unspecified Formulation 2003-04-28 00:00:00 Completed [facility] MMR 2003-04-28 00:00:00 Completed [facility] IPV 2003-04-28 00:00:00 Completed [facility] DTaP, Unspecified Formulation 2003-04-28 00:00:00 Completed [facility] MMR 2003-04-28 00:00:00 Completed [facility] IPV 2003-04-28 00:00:00 Completed [facility] DTaP, Unspecified Formulation 2003-04-28 00:00:00 Completed [facility] MMR 2003-04-28 00:00:00 Completed [facility] IPV 2003-04-28 00:00:00 Completed [facility] DTaP, Unspecified Formulation 2003-04-28 00:00:00 Completed [facility] MMR 2003-04-28 00:00:00 Completed [facility] IPV 2003-04-28 00:00:00 Completed [facility] HIB 4 Dose Schedule 2002-11-11 00:00:00 Completed [facility] Hep B, Adol or Pedi Dosage 2002-11-11 00:00:00 Completed [facility] MMR 2002-11-11 00:00:00 Completed [facility] DTaP, Unspecified Formulation 2002-11-11 00:00:00 Completed [facility] Polio (IPV/OPV) 2002-11-11 00:00:00 Completed [facility] IPV 2002-11-11 00:00:00 Completed [facility] Varicella (varivax)(chicken pox) 2002-11-11 00:00:00 Completed [facility] DTAP 2002-11-11 00:00:00 Completed [facility] Hep B, Adol or Pedi Dosage 2002-11-11 00:00:00 Completed [facility] HIB 4 Dose Schedule 2002-11-11 00:00:00 Completed [facility] DTaP, Unspecified Formulation 2002-11-11 00:00:00 Completed [facility] Polio (IPV/OPV) 2002-11-11 00:00:00 Completed [facility] IPV 2002-11-11 00:00:00 Completed [facility] MMR 2002-11-11 00:00:00 Completed [facility] Varicella (varivax)(chicken pox) 2002-11-11 00:00:00 Completed [facility] DTaP, Unspecified Formulation 2002-11-11 00:00:00 Completed [facility] IPV 2002-11-11 00:00:00 Completed [facility] DTaP, Unspecified Formulation 2002-11-11 00:00:00 Completed [facility] IPV 2002-11-11 00:00:00 Completed [facility] DTaP, Unspecified Formulation 2002-11-11 00:00:00 Completed [facility] IPV 2002-11-11 00:00:00 Completed [facility] DTAP 2002-11-11 00:00:00 Completed [facility] HIB 4 Dose Schedule 2002-11-11 00:00:00 Completed [facility] Hep B, Adol or Pedi Dosage 2002-11-11 00:00:00 Completed [facility] DTaP, Unspecified Formulation 2002-11-11 00:00:00 Completed [facility] MMR 2002-11-11 00:00:00 Completed [facility] IPV 2002-11-11 00:00:00 Completed [facility] Polio (IPV/OPV) 2002-11-11 00:00:00 Completed [facility] Varicella (varivax)(chicken pox) 2002-11-11 00:00:00 Completed [facility] DTAP 2002-11-11 00:00:00 Completed [facility] Hep B, Adol or Pedi Dosage 2002-11-11 00:00:00 Completed [facility] DTaP, Unspecified Formulation 2002-11-11 00:00:00 Completed [facility] HIB 4 Dose Schedule 2002-11-11 00:00:00 Completed [facility] IPV 2002-11-11 00:00:00 Completed [facility] Polio (IPV/OPV) 2002-11-11 00:00:00 Completed [facility] MMR 2002-11-11 00:00:00 Completed [facility] DTaP, Unspecified Formulation 2002-11-11 00:00:00 Completed [facility] Varicella (varivax)(chicken pox) 2002-11-11 00:00:00 Completed [facility] IPV 2002-11-11 00:00:00 Completed [facility] DTAP 2002-11-11 00:00:00 Completed [facility] HIB 4 Dose Schedule 2002-11-11 00:00:00 Completed [facility] Hep B, Adol or Pedi Dosage 2002-11-11 00:00:00 Completed [facility] MMR 2002-11-11 00:00:00 Completed [facility] Polio (IPV/OPV) 2002-11-11 00:00:00 Completed [facility] Varicella (varivax)(chicken pox) 2002-11-11 00:00:00 Completed [facility] DTAP 2002-11-11 00:00:00 Completed [facility] Hep B, Adol or Pedi Dosage 2002-11-11 00:00:00 Completed [facility] HIB 4 Dose Schedule 2002-11-11 00:00:00 Completed [facility] Polio (IPV/OPV) 2002-11-11 00:00:00 Completed [facility] MMR 2002-11-11 00:00:00 Completed [facility] Varicella (varivax)(chicken pox) 2002-11-11 00:00:00 Completed [facility] DTAP 2002-11-11 00:00:00 Completed [facility] HIB 4 Dose Schedule 2002-11-11 00:00:00 Completed [facility] Hep B, Adol or Pedi Dosage 2002-11-11 00:00:00 Completed [facility] MMR 2002-11-11 00:00:00 Completed [facility] Polio (IPV/OPV) 2002-11-11 00:00:00 Completed [facility] Varicella (varivax)(chicken pox) 2002-11-11 00:00:00 Completed [facility] DTAP 2002-11-11 00:00:00 Completed [facility] Hep B, Adol or Pedi Dosage 2002-11-11 00:00:00 Completed [facility] HIB 4 Dose Schedule 2002-11-11 00:00:00 Completed [facility] Polio (IPV/OPV) 2002-11-11 00:00:00 Completed [facility] MMR 2002-11-11 00:00:00 Completed [facility] Varicella (varivax)(chicken pox) 2002-11-11 00:00:00 Completed [facility] DTAP 2002-11-11 00:00:00 Completed [facility] HIB 4 Dose Schedule 2002-11-11 00:00:00 Completed [facility] Hep B, Adol or Pedi Dosage 2002-11-11 00:00:00 Completed [facility] MMR 2002-11-11 00:00:00 Completed [facility] Polio (IPV/OPV) 2002-11-11 00:00:00 Completed [facility] Varicella (varivax)(chicken pox) 2002-11-11 00:00:00 Completed [facility] DTAP 2002-11-11 00:00:00 Completed [facility] Hep B, Adol or Pedi Dosage 2002-11-11 00:00:00 Completed [facility] HIB 4 Dose Schedule 2002-11-11 00:00:00 Completed [facility] Polio (IPV/OPV) 2002-11-11 00:00:00 Completed [facility] MMR 2002-11-11 00:00:00 Completed [facility] Varicella (varivax)(chicken pox) 2002-11-11 00:00:00 Completed [facility] DTAP 2002-11-11 00:00:00 Completed [facility] HIB 4 Dose Schedule 2002-11-11 00:00:00 Completed [facility] Hep B, Adol or Pedi Dosage 2002-11-11 00:00:00 Completed [facility] MMR 2002-11-11 00:00:00 Completed [facility] Polio (IPV/OPV) 2002-11-11 00:00:00 Completed [facility] Varicella (varivax)(chicken pox) 2002-11-11 00:00:00 Completed [facility] DTAP 2002-11-11 00:00:00 Completed [facility] Hep B, Adol or Pedi Dosage 2002-11-11 00:00:00 Completed [facility] HIB 4 Dose Schedule 2002-11-11 00:00:00 Completed [facility] Polio (IPV/OPV) 2002-11-11 00:00:00 Completed [facility] MMR 2002-11-11 00:00:00 Completed [facility] Varicella (varivax)(chicken pox) 2002-11-11 00:00:00 Completed [facility] DTAP 2002-11-11 00:00:00 Completed [facility] DTAP 2002-11-11 00:00:00 Completed [facility] HIB 4 Dose Schedule 2002-11-11 00:00:00 Completed [facility] HIB 4 Dose Schedule 2002-11-11 00:00:00 Completed [facility] Hep B, Adol or Pedi Dosage 2002-11-11 00:00:00 Completed [facility] MMR 2002-11-11 00:00:00 Completed [facility] Polio (IPV/OPV) 2002-11-11 00:00:00 Completed [facility] Varicella (varivax)(chicken pox) 2002-11-11 00:00:00 Completed [facility] DTAP 2002-11-11 00:00:00 Completed [facility] Hep B, Adol or Pedi Dosage 2002-11-11 00:00:00 Completed [facility] HIB 4 Dose Schedule 2002-11-11 00:00:00 Completed [facility] Polio (IPV/OPV) 2002-11-11 00:00:00 Completed [facility] MMR 2002-11-11 00:00:00 Completed [facility] Hep B, Adol or Pedi Dosage 2002-11-11 00:00:00 Completed [facility] Varicella (varivax)(chicken pox) 2002-11-11 00:00:00 Completed [facility] MMR 2002-11-11 00:00:00 Completed [facility] DTAP 2002-11-11 00:00:00 Completed [facility] HIB 4 Dose Schedule 2002-11-11 00:00:00 Completed [facility] Hep B, Adol or Pedi Dosage 2002-11-11 00:00:00 Completed [facility] MMR 2002-11-11 00:00:00 Completed [facility] Polio (IPV/OPV) 2002-11-11 00:00:00 Completed [facility] Varicella (varivax)(chicken pox) 2002-11-11 00:00:00 Completed [facility] Polio (IPV/OPV) 2002-11-11 00:00:00 Completed [facility] DTAP 2002-11-11 00:00:00 Completed [facility] Hep B, Adol or Pedi Dosage 2002-11-11 00:00:00 Completed [facility] HIB 4 Dose Schedule 2002-11-11 00:00:00 Completed [facility] Polio (IPV/OPV) 2002-11-11 00:00:00 Completed [facility] MMR 2002-11-11 00:00:00 Completed [facility] Varicella (varivax)(chicken pox) 2002-11-11 00:00:00 Completed [facility] Varicella (varivax)(chicken pox) 2002-11-11 00:00:00 Completed [facility] DTAP 2002-11-11 00:00:00 Completed [facility] DTAP 2002-11-11 00:00:00 Completed [facility] HIB 4 Dose Schedule 2002-11-11 00:00:00 Completed [facility] Hep B, Adol or Pedi Dosage 2002-11-11 00:00:00 Completed [facility] MMR 2002-11-11 00:00:00 Completed [facility] Polio (IPV/OPV) 2002-11-11 00:00:00 Completed [facility] Varicella (varivax)(chicken pox) 2002-11-11 00:00:00 Completed [facility] DTAP 2002-11-11 00:00:00 Completed [facility] Hep B, Adol or Pedi Dosage 2002-11-11 00:00:00 Completed [facility] HIB 4 Dose Schedule 2002-11-11 00:00:00 Completed [facility] Hep B, Adol or Pedi Dosage 2002-11-11 00:00:00 Completed [facility] Polio (IPV/OPV) 2002-11-11 00:00:00 Completed [facility] MMR 2002-11-11 00:00:00 Completed [facility] Varicella (varivax)(chicken pox) 2002-11-11 00:00:00 Completed [facility] HIB 4 Dose Schedule 2002-11-11 00:00:00 Completed [facility] DTAP 2002-11-11 00:00:00 Completed [facility] HIB 4 Dose Schedule 2002-11-11 00:00:00 Completed [facility] Hep B, Adol or Pedi Dosage 2002-11-11 00:00:00 Completed [facility] MMR 2002-11-11 00:00:00 Completed [facility] Polio (IPV/OPV) 2002-11-11 00:00:00 Completed [facility] Varicella (varivax)(chicken pox) 2002-11-11 00:00:00 Completed [facility] Polio (IPV/OPV) 2002-11-11 00:00:00 Completed [facility] DTAP 2002-11-11 00:00:00 Completed [facility] Hep B, Adol or Pedi Dosage 2002-11-11 00:00:00 Completed [facility] HIB 4 Dose Schedule 2002-11-11 00:00:00 Completed [facility] Polio (IPV/OPV) 2002-11-11 00:00:00 Completed [facility] MMR 2002-11-11 00:00:00 Completed [facility] Varicella (varivax)(chicken pox) 2002-11-11 00:00:00 Completed [facility] MMR 2002-11-11 00:00:00 Completed [facility] Varicella (varivax)(chicken pox) 2002-11-11 00:00:00 Completed [facility] DTAP 2002-11-11 00:00:00 Completed [facility] HIB 4 Dose Schedule 2002-11-11 00:00:00 Completed [facility] Hep B, Adol or Pedi Dosage 2002-11-11 00:00:00 Completed [facility] MMR 2002-11-11 00:00:00 Completed [facility] Polio (IPV/OPV) 2002-11-11 00:00:00 Completed [facility] Varicella (varivax)(chicken pox) 2002-11-11 00:00:00 Completed [facility] DTAP 2002-11-11 00:00:00 Completed [facility] Hep B, Adol or Pedi Dosage 2002-11-11 00:00:00 Completed [facility] HIB 4 Dose Schedule 2002-11-11 00:00:00 Completed [facility] Polio (IPV/OPV) 2002-11-11 00:00:00 Completed [facility] MMR 2002-11-11 00:00:00 Completed [facility] Varicella (varivax)(chicken pox) 2002-11-11 00:00:00 Completed [facility] DTAP 2002-11-11 00:00:00 Completed [facility] HIB 4 Dose Schedule 2002-11-11 00:00:00 Completed [facility] Hep B, Adol or Pedi Dosage 2002-11-11 00:00:00 Completed [facility] MMR 2002-11-11 00:00:00 Completed [facility] Polio (IPV/OPV) 2002-11-11 00:00:00 Completed [facility] Varicella (varivax)(chicken pox) 2002-11-11 00:00:00 Completed [facility] DTAP 2002-11-11 00:00:00 Completed [facility] Hep B, Adol or Pedi Dosage 2002-11-11 00:00:00 Completed [facility] HIB 4 Dose Schedule 2002-11-11 00:00:00 Completed [facility] Polio (IPV/OPV) 2002-11-11 00:00:00 Completed [facility] MMR 2002-11-11 00:00:00 Completed [facility] Varicella (varivax)(chicken pox) 2002-11-11 00:00:00 Completed [facility] DTAP 2002-11-11 00:00:00 Completed [facility] HIB 4 Dose Schedule 2002-11-11 00:00:00 Completed [facility] Hep B, Adol or Pedi Dosage 2002-11-11 00:00:00 Completed [facility] MMR 2002-11-11 00:00:00 Completed [facility] Polio (IPV/OPV) 2002-11-11 00:00:00 Completed [facility] Varicella (varivax)(chicken pox) 2002-11-11 00:00:00 Completed [facility] DTAP 2002-11-11 00:00:00 Completed [facility] Hep B, Adol or Pedi Dosage 2002-11-11 00:00:00 Completed [facility] HIB 4 Dose Schedule 2002-11-11 00:00:00 Completed [facility] Polio (IPV/OPV) 2002-11-11 00:00:00 Completed [facility] MMR 2002-11-11 00:00:00 Completed [facility] Varicella (varivax)(chicken pox) 2002-11-11 00:00:00 Completed [facility] DTaP, Unspecified Formulation 2002-11-11 00:00:00 Completed [facility] IPV 2002-11-11 00:00:00 Completed [facility] DTAP 2002-11-11 00:00:00 Completed [facility] HIB 4 Dose Schedule 2002-11-11 00:00:00 Completed [facility] DTaP, Unspecified Formulation 2002-11-11 00:00:00 Completed [facility] IPV 2002-11-11 00:00:00 Completed [facility] Hep B, Adol or Pedi Dosage 2002-11-11 00:00:00 Completed [facility] MMR 2002-11-11 00:00:00 Completed [facility] Polio (IPV/OPV) 2002-11-11 00:00:00 Completed [facility] DTaP, Unspecified Formulation 2002-11-11 00:00:00 Completed [facility] Varicella (varivax)(chicken pox) 2002-11-11 00:00:00 Completed [facility] IPV 2002-11-11 00:00:00 Completed [facility] DTAP 2002-11-11 00:00:00 Completed [facility] Hep B, Adol or Pedi Dosage 2002-11-11 00:00:00 Completed [facility] DTaP, Unspecified Formulation 2002-11-11 00:00:00 Completed [facility] HIB 4 Dose Schedule 2002-11-11 00:00:00 Completed [facility] IPV 2002-11-11 00:00:00 Completed [facility] Polio (IPV/OPV) 2002-11-11 00:00:00 Completed [facility] MMR 2002-11-11 00:00:00 Completed [facility] DTaP, Unspecified Formulation 2002-11-11 00:00:00 Completed [facility] Varicella (varivax)(chicken pox) 2002-11-11 00:00:00 Completed [facility] IPV 2002-11-11 00:00:00 Completed [facility] DTaP, Unspecified Formulation 2002-11-11 00:00:00 Completed [facility] IPV 2002-11-11 00:00:00 Completed [facility] DTaP, Unspecified Formulation 2002-11-11 00:00:00 Completed [facility] IPV 2002-11-11 00:00:00 Completed [facility] DTAP 2002-11-11 00:00:00 Completed [facility] HIB 4 Dose Schedule 2002-11-11 00:00:00 Completed [facility] DTaP, Unspecified Formulation 2002-11-11 00:00:00 Completed [facility] Hep B, Adol or Pedi Dosage 2002-11-11 00:00:00 Completed [facility] IPV 2002-11-11 00:00:00 Completed [facility] MMR 2002-11-11 00:00:00 Completed [facility] Polio (IPV/OPV) 2002-11-11 00:00:00 Completed [facility] DTaP, Unspecified Formulation 2002-11-11 00:00:00 Completed [facility] Varicella (varivax)(chicken pox) 2002-11-11 00:00:00 Completed [facility] IPV 2002-11-11 00:00:00 Completed [facility] DTAP 2002-11-11 00:00:00 Completed [facility] Hep B, Adol or Pedi Dosage 2002-11-11 00:00:00 Completed [facility] DTaP, Unspecified Formulation 2002-11-11 00:00:00 Completed [facility] HIB 4 Dose Schedule 2002-11-11 00:00:00 Completed [facility] IPV 2002-11-11 00:00:00 Completed [facility] Polio (IPV/OPV) 2002-11-11 00:00:00 Completed [facility] MMR 2002-11-11 00:00:00 Completed [facility] Varicella (varivax)(chicken pox) 2002-11-11 00:00:00 Completed [facility] DTaP, Unspecified Formulation 2002-11-11 00:00:00 Completed [facility] IPV 2002-11-11 00:00:00 Completed [facility] DTaP, Unspecified Formulation 2002-11-11 00:00:00 Completed [facility] IPV 2002-11-11 00:00:00 Completed [facility] DTaP, Unspecified Formulation 2002-11-11 00:00:00 Completed [facility] DTAP 2002-11-11 00:00:00 Completed [facility] IPV 2002-11-11 00:00:00 Completed [facility] Poliovirus, Live, Oral, Trivalent 1999-05-14 00:00:00 Completed [facility] DTaP, Unspecified Formulation 1999-05-14 00:00:00 Completed [facility] HIB 4 Dose Schedule 1999-05-14 00:00:00 Completed [facility] Poliovirus, Live, Oral, Trivalent 1999-05-14 00:00:00 Completed [facility] DTaP, Unspecified Formulation 1999-05-14 00:00:00 Completed [facility] HIB 4 Dose Schedule 1999-05-14 00:00:00 Completed [facility] Poliovirus, Live, Oral, Trivalent 1999-05-14 00:00:00 Completed [facility] DTaP, Unspecified Formulation 1999-05-14 00:00:00 Completed [facility] HIB 4 Dose Schedule 1999-05-14 00:00:00 Completed [facility] Poliovirus, Live, Oral, Trivalent 1999-05-14 00:00:00 Completed [facility] DTaP, Unspecified Formulation 1999-05-14 00:00:00 Completed [facility] HIB 4 Dose Schedule 1999-05-14 00:00:00 Completed [facility] Poliovirus, Live, Oral, Trivalent 1999-05-14 00:00:00 Completed [facility] DTaP, Unspecified Formulation 1999-05-14 00:00:00 Completed [facility] HIB 4 Dose Schedule 1999-05-14 00:00:00 Completed [facility] Poliovirus, Live, Oral, Trivalent 1999-05-14 00:00:00 Completed [facility] DTaP, Unspecified Formulation 1999-05-14 00:00:00 Completed [facility] HIB 4 Dose Schedule 1999-05-14 00:00:00 Completed [facility] Poliovirus, Live, Oral, Trivalent 1999-05-14 00:00:00 Completed [facility] DTaP, Unspecified Formulation 1999-05-14 00:00:00 Completed [facility] HIB 4 Dose Schedule 1999-05-14 00:00:00 Completed [facility] Poliovirus, Live, Oral, Trivalent 1999-05-14 00:00:00 Completed [facility] DTaP, Unspecified Formulation 1999-05-14 00:00:00 Completed [facility] HIB 4 Dose Schedule 1999-05-14 00:00:00 Completed [facility] Poliovirus, Live, Oral, Trivalent 1999-05-14 00:00:00 Completed [facility] DTaP, Unspecified Formulation 1999-05-14 00:00:00 Completed [facility] HIB 4 Dose Schedule 1999-05-14 00:00:00 Completed [facility] Poliovirus, Live, Oral, Trivalent 1999-05-14 00:00:00 Completed [facility] DTaP, Unspecified Formulation 1999-05-14 00:00:00 Completed [facility] HIB 4 Dose Schedule 1999-05-14 00:00:00 Completed [facility] Poliovirus, Live, Oral, Trivalent 1999-05-14 00:00:00 Completed [facility] DTaP, Unspecified Formulation 1999-05-14 00:00:00 Completed [facility] HIB 4 Dose Schedule 1999-05-14 00:00:00 Completed [facility] Poliovirus, Live, Oral, Trivalent 1999-05-14 00:00:00 Completed [facility] DTaP, Unspecified Formulation 1999-05-14 00:00:00 Completed [facility] HIB 4 Dose Schedule 1999-05-14 00:00:00 Completed [facility] Poliovirus, Live, Oral, Trivalent 1999-05-14 00:00:00 Completed [facility] DTaP, Unspecified Formulation 1999-05-14 00:00:00 Completed [facility] HIB 4 Dose Schedule 1999-05-14 00:00:00 Completed [facility] Poliovirus, Live, Oral, Trivalent 1999-05-14 00:00:00 Completed [facility] DTaP, Unspecified Formulation 1999-05-14 00:00:00 Completed [facility] HIB 4 Dose Schedule 1999-05-14 00:00:00 Completed [facility] Poliovirus, Live, Oral, Trivalent 1999-05-14 00:00:00 Completed [facility] DTaP, Unspecified Formulation 1999-05-14 00:00:00 Completed [facility] HIB 4 Dose Schedule 1999-05-14 00:00:00 Completed [facility] Poliovirus, Live, Oral, Trivalent 1999-05-14 00:00:00 Completed [facility] DTaP, Unspecified Formulation 1999-05-14 00:00:00 Completed [facility] HIB 4 Dose Schedule 1999-05-14 00:00:00 Completed [facility] Poliovirus, Live, Oral, Trivalent 1999-05-14 00:00:00 Completed [facility] DTaP, Unspecified Formulation 1999-05-14 00:00:00 Completed [facility] HIB 4 Dose Schedule 1999-05-14 00:00:00 Completed [facility] Poliovirus, Live, Oral, Trivalent 1999-05-14 00:00:00 Completed [facility] DTaP, Unspecified Formulation 1999-05-14 00:00:00 Completed [facility] HIB 4 Dose Schedule 1999-05-14 00:00:00 Completed [facility] Poliovirus, Live, Oral, Trivalent 1999-05-14 00:00:00 Completed [facility] DTaP, Unspecified Formulation 1999-05-14 00:00:00 Completed [facility] HIB 4 Dose Schedule 1999-05-14 00:00:00 Completed [facility] Poliovirus, Live, Oral, Trivalent 1999-05-14 00:00:00 Completed [facility] DTaP, Unspecified Formulation 1999-05-14 00:00:00 Completed [facility] HIB 4 Dose Schedule 1999-05-14 00:00:00 Completed [facility] Poliovirus, Live, Oral, Trivalent 1999-05-14 00:00:00 Completed [facility] DTaP, Unspecified Formulation 1999-05-14 00:00:00 Completed [facility] HIB 4 Dose Schedule 1999-05-14 00:00:00 Completed [facility] Poliovirus, Live, Oral, Trivalent 1999-01-26 00:00:00 Completed [facility] DTaP, Unspecified Formulation 1999-01-26 00:00:00 Completed [facility] Hep B, Adol or Pedi Dosage 1999-01-26 00:00:00 Completed [facility] HIB 4 Dose Schedule 1999-01-26 00:00:00 Completed [facility] Poliovirus, Live, Oral, Trivalent 1999-01-26 00:00:00 Completed [facility] DTaP, Unspecified Formulation 1999-01-26 00:00:00 Completed [facility] Hep B, Adol or Pedi Dosage 1999-01-26 00:00:00 Completed [facility] HIB 4 Dose Schedule 1999-01-26 00:00:00 Completed [facility] Poliovirus, Live, Oral, Trivalent 1999-01-26 00:00:00 Completed [facility] DTaP, Unspecified Formulation 1999-01-26 00:00:00 Completed [facility] Hep B, Adol or Pedi Dosage 1999-01-26 00:00:00 Completed [facility] HIB 4 Dose Schedule 1999-01-26 00:00:00 Completed [facility] Poliovirus, Live, Oral, Trivalent 1999-01-26 00:00:00 Completed [facility] DTaP, Unspecified Formulation 1999-01-26 00:00:00 Completed [facility] Hep B, Adol or Pedi Dosage 1999-01-26 00:00:00 Completed [facility] HIB 4 Dose Schedule 1999-01-26 00:00:00 Completed [facility] Poliovirus, Live, Oral, Trivalent 1999-01-26 00:00:00 Completed [facility] DTaP, Unspecified Formulation 1999-01-26 00:00:00 Completed [facility] Hep B, Adol or Pedi Dosage 1999-01-26 00:00:00 Completed [facility] HIB 4 Dose Schedule 1999-01-26 00:00:00 Completed [facility] Poliovirus, Live, Oral, Trivalent 1999-01-26 00:00:00 Completed [facility] DTaP, Unspecified Formulation 1999-01-26 00:00:00 Completed [facility] Hep B, Adol or Pedi Dosage 1999-01-26 00:00:00 Completed [facility] HIB 4 Dose Schedule 1999-01-26 00:00:00 Completed [facility] Poliovirus, Live, Oral, Trivalent 1999-01-26 00:00:00 Completed [facility] DTaP, Unspecified Formulation 1999-01-26 00:00:00 Completed [facility] Hep B, Adol or Pedi Dosage 1999-01-26 00:00:00 Completed [facility] HIB 4 Dose Schedule 1999-01-26 00:00:00 Completed [facility] Poliovirus, Live, Oral, Trivalent 1999-01-26 00:00:00 Completed [facility] DTaP, Unspecified Formulation 1999-01-26 00:00:00 Completed [facility] Hep B, Adol or Pedi Dosage 1999-01-26 00:00:00 Completed [facility] HIB 4 Dose Schedule 1999-01-26 00:00:00 Completed [facility] Poliovirus, Live, Oral, Trivalent 1999-01-26 00:00:00 Completed [facility] DTaP, Unspecified Formulation 1999-01-26 00:00:00 Completed [facility] Hep B, Adol or Pedi Dosage 1999-01-26 00:00:00 Completed [facility] HIB 4 Dose Schedule 1999-01-26 00:00:00 Completed [facility] Poliovirus, Live, Oral, Trivalent 1999-01-26 00:00:00 Completed [facility] DTaP, Unspecified Formulation 1999-01-26 00:00:00 Completed [facility] Hep B, Adol or Pedi Dosage 1999-01-26 00:00:00 Completed [facility] HIB 4 Dose Schedule 1999-01-26 00:00:00 Completed [facility] Poliovirus, Live, Oral, Trivalent 1999-01-26 00:00:00 Completed [facility] DTaP, Unspecified Formulation 1999-01-26 00:00:00 Completed [facility] Hep B, Adol or Pedi Dosage 1999-01-26 00:00:00 Completed [facility] HIB 4 Dose Schedule 1999-01-26 00:00:00 Completed [facility] Poliovirus, Live, Oral, Trivalent 1999-01-26 00:00:00 Completed [facility] DTaP, Unspecified Formulation 1999-01-26 00:00:00 Completed [facility] Hep B, Adol or Pedi Dosage 1999-01-26 00:00:00 Completed [facility] HIB 4 Dose Schedule 1999-01-26 00:00:00 Completed [facility] Poliovirus, Live, Oral, Trivalent 1999-01-26 00:00:00 Completed [facility] DTaP, Unspecified Formulation 1999-01-26 00:00:00 Completed [facility] Hep B, Adol or Pedi Dosage 1999-01-26 00:00:00 Completed [facility] HIB 4 Dose Schedule 1999-01-26 00:00:00 Completed [facility] Poliovirus, Live, Oral, Trivalent 1999-01-26 00:00:00 Completed [facility] DTaP, Unspecified Formulation 1999-01-26 00:00:00 Completed [facility] Hep B, Adol or Pedi Dosage 1999-01-26 00:00:00 Completed [facility] HIB 4 Dose Schedule 1999-01-26 00:00:00 Completed [facility] Poliovirus, Live, Oral, Trivalent 1999-01-26 00:00:00 Completed [facility] DTaP, Unspecified Formulation 1999-01-26 00:00:00 Completed [facility] Hep B, Adol or Pedi Dosage 1999-01-26 00:00:00 Completed [facility] HIB 4 Dose Schedule 1999-01-26 00:00:00 Completed [facility] Poliovirus, Live, Oral, Trivalent 1999-01-26 00:00:00 Completed [facility] DTaP, Unspecified Formulation 1999-01-26 00:00:00 Completed [facility] Hep B, Adol or Pedi Dosage 1999-01-26 00:00:00 Completed [facility] HIB 4 Dose Schedule 1999-01-26 00:00:00 Completed [facility] Poliovirus, Live, Oral, Trivalent 1999-01-26 00:00:00 Completed [facility] DTaP, Unspecified Formulation 1999-01-26 00:00:00 Completed [facility] Hep B, Adol or Pedi Dosage 1999-01-26 00:00:00 Completed [facility] HIB 4 Dose Schedule 1999-01-26 00:00:00 Completed [facility] Poliovirus, Live, Oral, Trivalent 1999-01-26 00:00:00 Completed [facility] DTaP, Unspecified Formulation 1999-01-26 00:00:00 Completed [facility] Hep B, Adol or Pedi Dosage 1999-01-26 00:00:00 Completed [facility] HIB 4 Dose Schedule 1999-01-26 00:00:00 Completed [facility] Poliovirus, Live, Oral, Trivalent 1999-01-26 00:00:00 Completed [facility] DTaP, Unspecified Formulation 1999-01-26 00:00:00 Completed [facility] Hep B, Adol or Pedi Dosage 1999-01-26 00:00:00 Completed [facility] HIB 4 Dose Schedule 1999-01-26 00:00:00 Completed [facility] Poliovirus, Live, Oral, Trivalent 1999-01-26 00:00:00 Completed [facility] DTaP, Unspecified Formulation 1999-01-26 00:00:00 Completed [facility] Hep B, Adol or Pedi Dosage 1999-01-26 00:00:00 Completed [facility] HIB 4 Dose Schedule 1999-01-26 00:00:00 Completed [facility] Poliovirus, Live, Oral, Trivalent 1999-01-26 00:00:00 Completed [facility] DTaP, Unspecified Formulation 1999-01-26 00:00:00 Completed [facility] Hep B, Adol or Pedi Dosage 1999-01-26 00:00:00 Completed [facility] HIB 4 Dose Schedule 1999-01-26 00:00:00 Completed [facility] Hep B, Adol or Pedi Dosage 1998 00:00:00 Completed [facility] Hep B, Adol or Pedi Dosage 1998 00:00:00 Completed [facility] Hep B, Adol or Pedi Dosage 1998 00:00:00 Completed [facility] Hep B, Adol or Pedi Dosage 1998 00:00:00 Completed [facility] Hep B, Adol or Pedi Dosage 1998 00:00:00 Completed [facility] Hep B, Adol or Pedi Dosage 1998 00:00:00 Completed [facility] Hep B, Adol or Pedi Dosage 1998 00:00:00 Completed [facility] Hep B, Adol or Pedi Dosage 1998 00:00:00 Completed [facility] Hep B, Adol or Pedi Dosage 1998 00:00:00 Completed [facility] Hep B, Adol or Pedi Dosage 1998 00:00:00 Completed [facility] Hep B, Adol or Pedi Dosage 1998 00:00:00 Completed [facility] Hep B, Adol or Pedi Dosage 1998 00:00:00 Completed [facility] Hep B, Adol or Pedi Dosage 1998 00:00:00 Completed [facility] Hep B, Adol or Pedi Dosage 1998 00:00:00 Completed [facility] Hep B, Adol or Pedi Dosage 1998 00:00:00 Completed [facility] Hep B, Adol or Pedi Dosage 1998 00:00:00 Completed [facility] Hep B, Adol or Pedi Dosage 1998 00:00:00 Completed [facility] Hep B, Adol or Pedi Dosage 1998 00:00:00 Completed [facility] Hep B, Adol or Pedi Dosage 1998 00:00:00 Completed [facility] Hep B, Adol or Pedi Dosage 1998 00:00:00 Completed [facility] Hep B, Adol or Pedi Dosage 1998 00:00:00 Completed [facility] HPV Unknown Completed [facility] Meningococcal Polysaccharide (groups A, C, Y and W-135) conjugate vaccine (MCV4P) Unknown Completed [facility] TDAP (ADACEL) VACCINE Unknown Completed [facility] Influenza Virus Vaccine Quad .5 mL IM 6+ MO (FLUZONE/FLULAVAL/FL UARIX) Unknown Completed [facility] TDAP (ADACEL) VACCINE Unknown Completed [facility] TDAP (ADACEL) VACCINE Unknown Completed [facility] Influenza Virus Vaccine Quad .5 mL IM 6+ MO (FLUZONE/FLULAVAL/FL UARIX) Unknown Completed [facility] HPV Unknown Completed [facility] Meningococcal Polysaccharide (groups A, C, Y and W-135) conjugate vaccine (MCV4P) Unknown Completed [facility] Varicella (varivax)(chicken pox) Unknown Completed [facility] SARS-COV-2 COVID-19 VACCINE - (MODERNA) Unknown Completed [facility] SARS-COV-2 COVID-19 VACCINE - (MODERNA) Unknown Completed [facility] DTaP, Unspecified Formulation Unknown Completed [facility] DTaP, Unspecified Formulation Unknown Completed [facility] DTaP, Unspecified Formulation Unknown Completed [facility] DTaP, Unspecified Formulation Unknown Completed [facility] HEPATITIS A Unknown Completed [facility] Hep B, Adol or Pedi Dosage Unknown Completed [facility] Hep B, Adol or Pedi Dosage Unknown Completed [facility] HIB 4 Dose Schedule Unknown Completed [facility] HIB 4 Dose Schedule Unknown Completed [facility] MMR Unknown Completed [facility] IPV Unknown Completed [facility] IPV Unknown Completed [facility] Poliovirus, Live, Oral, Trivalent Unknown Completed [facility] Poliovirus, Live, Oral, Trivalent Unknown Completed [facility] Tetanus/Diptheria Unknown Completed [facility] HPV Unknown Completed [facility] Meningococcal Polysaccharide (groups A, C, Y and W-135) conjugate vaccine (MCV4P) Unknown Completed [facility] TDAP (ADACEL) VACCINE Unknown Completed [facility] Influenza Virus Vaccine Quad .5 mL IM 6+ MO (FLUZONE/FLULAVAL/FL UARIX) Unknown Completed [facility] TDAP (ADACEL) VACCINE Unknown Completed [facility] TDAP (ADACEL) VACCINE Unknown Completed [facility] Influenza Virus Vaccine Quad .5 mL IM 6+ MO (FLUZONE/FLULAVAL/FL UARIX) Unknown Completed [facility] HPV Unknown Completed [facility] Meningococcal Polysaccharide (groups A, C, Y and W-135) conjugate vaccine (MCV4P) Unknown Completed [facility] Varicella (varivax)(chicken pox) Unknown Completed [facility] SARS-COV-2 COVID-19 VACCINE - (MODERNA) Unknown Completed [facility] SARS-COV-2 COVID-19 VACCINE - (MODERNA) Unknown Completed [facility] DTaP, Unspecified Formulation Unknown Completed [facility] DTaP, Unspecified Formulation Unknown Completed [facility] DTaP, Unspecified Formulation Unknown Completed [facility] DTaP, Unspecified Formulation Unknown Completed [facility] HEPATITIS A Unknown Completed [facility] Hep B, Adol or Pedi Dosage Unknown Completed [facility] Hep B, Adol or Pedi Dosage Unknown Completed [facility] HIB 4 Dose Schedule Unknown Completed [facility] HIB 4 Dose Schedule Unknown Completed [facility] MMR Unknown Completed [facility] IPV Unknown Completed [facility] IPV Unknown Completed [facility] Poliovirus, Live, Oral, Trivalent Unknown Completed [facility] Poliovirus, Live, Oral, Trivalent Unknown Completed [facility] Tetanus/Diptheria Unknown Completed [facility] HPV Unknown Completed [facility] Meningococcal Polysaccharide (groups A, C, Y and W-135) conjugate vaccine (MCV4P) Unknown Completed [facility] TDAP (ADACEL) VACCINE Unknown Completed [facility] Influenza Virus Vaccine Quad .5 mL IM 6+ MO (FLUZONE/FLULAVAL/FL UARIX) Unknown Completed [facility] TDAP (ADACEL) VACCINE Unknown Completed [facility] TDAP (ADACEL) VACCINE Unknown Completed [facility] Influenza Virus Vaccine Quad .5 mL IM 6+ MO (FLUZONE/FLULAVAL/FL UARIX) Unknown Completed [facility] HPV Unknown Completed [facility] Meningococcal Polysaccharide (groups A, C, Y and W-135) conjugate vaccine (MCV4P) Unknown Completed [facility] Varicella (varivax)(chicken pox) Unknown Completed [facility] SARS-COV-2 COVID-19 VACCINE - (MODERNA) Unknown Completed [facility] SARS-COV-2 COVID-19 VACCINE - (MODERNA) Unknown Completed [facility] DTaP, Unspecified Formulation Unknown Completed [facility] DTaP, Unspecified Formulation Unknown Completed [facility] DTaP, Unspecified Formulation Unknown Completed [facility] DTaP, Unspecified Formulation Unknown Completed [facility] HEPATITIS A Unknown Completed [facility] Hep B, Adol or Pedi Dosage Unknown Completed [facility] Hep B, Adol or Pedi Dosage Unknown Completed [facility] HIB 4 Dose Schedule Unknown Completed [facility] HIB 4 Dose Schedule Unknown Completed [facility] MMR Unknown Completed [facility] IPV Unknown Completed [facility] IPV Unknown Completed [facility] Poliovirus, Live, Oral, Trivalent Unknown Completed [facility] Poliovirus, Live, Oral, Trivalent Unknown Completed [facility] Tetanus/Diptheria Unknown Completed [facility] HPV Unknown Completed [facility] Meningococcal Polysaccharide (groups A, C, Y and W-135) conjugate vaccine (MCV4P) Unknown Completed [facility] TDAP (ADACEL) VACCINE Unknown Completed [facility] Influenza Virus Vaccine Quad .5 mL IM 6+ MO (FLUZONE/FLULAVAL/FL UARIX) Unknown Completed [facility] TDAP (ADACEL) VACCINE Unknown Completed [facility] TDAP (ADACEL) VACCINE Unknown Completed [facility] Influenza Virus Vaccine Quad .5 mL IM 6+ MO (FLUZONE/FLULAVAL/FL UARIX) Unknown Completed [facility] HPV Unknown Completed [facility] Meningococcal Polysaccharide (groups A, C, Y and W-135) conjugate vaccine (MCV4P) Unknown Completed [facility] Varicella (varivax)(chicken pox) Unknown Completed [facility] SARS-COV-2 COVID-19 VACCINE - (MODERNA) Unknown Completed [facility] SARS-COV-2 COVID-19 VACCINE - (MODERNA) Unknown Completed [facility] DTaP, Unspecified Formulation Unknown Completed [facility] DTaP, Unspecified Formulation Unknown Completed [facility] DTaP, Unspecified Formulation Unknown Completed [facility] DTaP, Unspecified Formulation Unknown Completed [facility] HEPATITIS A Unknown Completed [facility] Hep B, Adol or Pedi Dosage Unknown Completed [facility] Hep B, Adol or Pedi Dosage Unknown Completed [facility] HIB 4 Dose Schedule Unknown Completed [facility] HIB 4 Dose Schedule Unknown Completed [facility] MMR Unknown Completed [facility] IPV Unknown Completed [facility] IPV Unknown Completed [facility] Poliovirus, Live, Oral, Trivalent Unknown Completed [facility] Poliovirus, Live, Oral, Trivalent Unknown Completed [facility] Tetanus/Diptheria Unknown Completed [facility] HPV Unknown Completed [facility] Meningococcal Polysaccharide (groups A, C, Y and W-135) conjugate vaccine (MCV4P) Unknown Completed [facility] TDAP (ADACEL) VACCINE Unknown Completed [facility] Influenza Virus Vaccine Quad .5 mL IM 6+ MO (FLUZONE/FLULAVAL/FL UARIX) Unknown Completed [facility] TDAP (ADACEL) VACCINE Unknown Completed [facility] TDAP (ADACEL) VACCINE Unknown Completed [facility] Influenza Virus Vaccine Quad .5 mL IM 6+ MO (FLUZONE/FLULAVAL/FL UARIX) Unknown Completed [facility] HPV Unknown Completed [facility] Meningococcal Polysaccharide (groups A, C, Y and W-135) conjugate vaccine (MCV4P) Unknown Completed [facility] Varicella (varivax)(chicken pox) Unknown Completed [facility] SARS-COV-2 COVID-19 VACCINE - (MODERNA) Unknown Completed [facility] DTaP, Unspecified Formulation Unknown Completed [facility] DTaP, Unspecified Formulation Unknown Completed [facility] DTaP, Unspecified Formulation Unknown Completed [facility] DTaP, Unspecified Formulation Unknown Completed [facility] HEPATITIS A Unknown Completed [facility] Hep B, Adol or Pedi Dosage Unknown Completed [facility] Hep B, Adol or Pedi Dosage Unknown Completed [facility] HIB 4 Dose Schedule Unknown Completed [facility] HIB 4 Dose Schedule Unknown Completed [facility] MMR Unknown Completed [facility] IPV Unknown Completed [facility] IPV Unknown Completed [facility] Poliovirus, Live, Oral, Trivalent Unknown Completed [facility] Poliovirus, Live, Oral, Trivalent Unknown Completed [facility] Tetanus/Diptheria Unknown Completed [facility] HPV Unknown Completed [facility] Meningococcal Polysaccharide (groups A, C, Y and W-135) conjugate vaccine (MCV4P) Unknown Completed [facility] TDAP (ADACEL) VACCINE Unknown Completed [facility] Influenza Virus Vaccine Quad .5 mL IM 6+ MO (FLUZONE/FLULAVAL/FL UARIX) Unknown Completed [facility] TDAP (ADACEL) VACCINE Unknown Completed [facility] TDAP (ADACEL) VACCINE Unknown Completed [facility] Influenza Virus Vaccine Quad .5 mL IM 6+ MO (FLUZONE/FLULAVAL/FL UARIX) Unknown Completed [facility] HPV Unknown Completed [facility] Meningococcal Polysaccharide (groups A, C, Y and W-135) conjugate vaccine (MCV4P) Unknown Completed [facility] Varicella (varivax)(chicken pox) Unknown Completed [facility] SARS-COV-2 COVID-19 VACCINE - (MODERNA) Unknown Completed [facility] SARS-COV-2 COVID-19 VACCINE - (MODERNA) Unknown Completed [facility] DTaP, Unspecified Formulation Unknown Completed [facility] DTaP, Unspecified Formulation Unknown Completed [facility] DTaP, Unspecified Formulation Unknown Completed [facility] DTaP, Unspecified Formulation Unknown Completed [facility] HEPATITIS A Unknown Completed [facility] Hep B, Adol or Pedi Dosage Unknown Completed [facility] Hep B, Adol or Pedi Dosage Unknown Completed [facility] HIB 4 Dose Schedule Unknown Completed [facility] HIB 4 Dose Schedule Unknown Completed [facility] MMR Unknown Completed [facility] IPV Unknown Completed [facility] IPV Unknown Completed [facility] Poliovirus, Live, Oral, Trivalent Unknown Completed [facility] Poliovirus, Live, Oral, Trivalent Unknown Completed [facility] Tetanus/Diptheria Unknown Completed [facility] HPV Unknown Completed [facility] Meningococcal Polysaccharide (groups A, C, Y and W-135) conjugate vaccine (MCV4P) Unknown Completed [facility] TDAP (ADACEL) VACCINE Unknown Completed [facility] Influenza Virus Vaccine Quad .5 mL IM 6+ MO (FLUZONE/FLULAVAL/FL UARIX) Unknown Completed [facility] TDAP (ADACEL) VACCINE Unknown Completed [facility] TDAP (ADACEL) VACCINE Unknown Completed [facility] Influenza Virus Vaccine Quad .5 mL IM 6+ MO (FLUZONE/FLULAVAL/FL UARIX) Unknown Completed [facility] HPV Unknown Completed [facility] Meningococcal Polysaccharide (groups A, C, Y and W-135) conjugate vaccine (MCV4P) Unknown Completed [facility] Varicella (varivax)(chicken pox) Unknown Completed [facility] SARS-COV-2 COVID-19 VACCINE - (MODERNA) Unknown Completed [facility] SARS-COV-2 COVID-19 VACCINE - (MODERNA) Unknown Completed [facility] DTaP, Unspecified Formulation Unknown Completed [facility] DTaP, Unspecified Formulation Unknown Completed [facility] DTaP, Unspecified Formulation Unknown Completed [facility] DTaP, Unspecified Formulation Unknown Completed [facility] HEPATITIS A Unknown Completed [facility] Hep B, Adol or Pedi Dosage Unknown Completed [facility] Hep B, Adol or Pedi Dosage Unknown Completed [facility] HIB 4 Dose Schedule Unknown Completed [facility] HIB 4 Dose Schedule Unknown Completed [facility] MMR Unknown Completed [facility] IPV Unknown Completed [facility] IPV Unknown Completed [facility] Poliovirus, Live, Oral, Trivalent Unknown Completed [facility] Poliovirus, Live, Oral, Trivalent Unknown Completed [facility]anus[facility]heria [facility] Meningococcal Polysaccharide (groups A, C, Y and W-135) conjugate vaccine (MCV4P) Unknown Completed [facility] TDAP (ADACEL) VACCINE Unknown Completed [facility] Influenza Virus Vaccine Quad .5 mL IM 6+ MO (FLUZONE/FLULAVAL/FL UARIX) Unknown Completed [facility] TDAP (ADACEL) VACCINE Unknown Completed [facility] TDAP (ADACEL) VACCINE Unknown Completed [facility] Influenza Virus Vaccine Quad .5 mL IM 6+ MO (FLUZONE/FLULAVAL/FL UARIX) Unknown Completed [facility] HPV Unknown Completed [facility] Meningococcal Polysaccharide (groups A, C, Y and W-135) conjugate vaccine (MCV4P) Unknown Completed [facility] Varicella (varivax)(chicken pox) Unknown Completed [facility] SARS-COV-2 COVID-19 VACCINE - (MODERNA) Unknown Completed [facility] SARS-COV-2 COVID-19 VACCINE - (MODERNA) Unknown Completed [facility] DTaP, Unspecified Formulation Unknown Completed [facility] DTaP, Unspecified Formulation Unknown Completed [facility] DTaP, Unspecified Formulation Unknown Completed [facility] DTaP, Unspecified Formulation Unknown Completed [facility] HEPATITIS A Unknown Completed [facility] Hep B, Adol or Pedi Dosage Unknown Completed [facility] Hep B, Adol or Pedi Dosage Unknown Completed [facility] HIB 4 Dose Schedule Unknown Completed [facility] HIB 4 Dose Schedule Unknown Completed [facility] MMR Unknown Completed [facility] IPV Unknown Completed [facility] IPV Unknown Completed [facility] Poliovirus, Live, Oral, Trivalent Unknown Completed [facility] Poliovirus, Live, Oral, Trivalent Unknown Completed [facility] Tetanus/Diptheria [facility] Meningococcal Polysaccharide (groups A, C, Y and W-135) conjugate vaccine (MCV4P) Unknown Completed [facility] TDAP (ADACEL) VACCINE Unknown Completed [facility] Influenza Virus Vaccine Quad .5 mL IM 6+ MO (FLUZONE/FLULAVAL/FL UARIX) Unknown Completed [facility] TDAP (ADACEL) VACCINE Unknown Completed [facility] TDAP (ADACEL) VACCINE Unknown Completed [facility] Influenza Virus Vaccine Quad .5 mL IM 6+ MO (FLUZONE/FLULAVAL/FL UARIX) Unknown Completed [facility] HPV Unknown Completed [facility] Meningococcal Polysaccharide (groups A, C, Y and W-135) conjugate vaccine (MCV4P) Unknown Completed [facility] Varicella (varivax)(chicken pox) Unknown Completed [facility] SARS-COV-2 COVID-19 VACCINE - (MODERNA) Unknown Completed [facility] SARS-COV-2 COVID-19 VACCINE - (MODERNA) Unknown Completed [facility] DTaP, Unspecified Formulation Unknown Completed [facility] DTaP, Unspecified Formulation Unknown Completed [facility] DTaP, Unspecified Formulation Unknown Completed [facility] DTaP, Unspecified Formulation Unknown Completed [facility] HEPATITIS A Unknown Completed [facility] Hep B, Adol or Pedi Dosage Unknown Completed [facility] Hep B, Adol or Pedi Dosage Unknown Completed [facility] HIB 4 Dose Schedule Unknown Completed [facility] HIB 4 Dose Schedule Unknown Completed [facility] MMR Unknown Completed [facility] IPV Unknown Completed [facility] IPV Unknown Completed [facility] Poliovirus, Live, Oral, Trivalent Unknown Completed [facility] Poliovirus, Live, Oral, Trivalent Unknown Completed [facility]anus/Diptheria [facility] Influenza Virus Vaccine Quad IM, Preserv and ABX Free 6 MO-64 YRS (FLUCELVAX) Unknown Completed [facility] HPV Unknown Completed [facility] Meningococcal Polysaccharide (groups A, C, Y and W-135) conjugate vaccine (MCV4P) Unknown Completed [facility] TDAP (ADACEL) VACCINE Unknown Completed [facility] Influenza Virus Vaccine Quad .5 mL IM 6+ MO (FLUZONE/FLULAVAL/FL UARIX) Unknown Completed [facility] TDAP (ADACEL) VACCINE Unknown Completed [facility] TDAP (ADACEL) VACCINE Unknown Completed [facility] Influenza Virus Vaccine Quad .5 mL IM 6+ MO (FLUZONE/FLULAVAL/FL UARIX) Unknown Completed [facility] HPV Unknown Completed [facility] Meningococcal Polysaccharide (groups A, C, Y and W-135) conjugate vaccine (MCV4P) Unknown Completed [facility] Varicella (varivax)(chicken pox) Unknown Completed [facility] SARS-COV-2 COVID-19 VACCINE - (MODERNA) Unknown Completed [facility] SARS-COV-2 COVID-19 VACCINE - (MODERNA) Unknown Completed [facility] DTaP, Unspecified Formulation Unknown Completed [facility] DTaP, Unspecified Formulation Unknown Completed [facility] DTaP, Unspecified Formulation Unknown Completed [facility] DTaP, Unspecified Formulation Unknown Completed [facility] HEPATITIS A Unknown Completed [facility] Hep B, Adol or Pedi Dosage Unknown Completed [facility] Hep B, Adol or Pedi Dosage Unknown Completed [facility] HIB 4 Dose Schedule Unknown Completed [facility] HIB 4 Dose Schedule Unknown Completed [facility] MMR Unknown Completed [facility] IPV Unknown Completed [facility] IPV Unknown Completed [facility] Poliovirus, Live, Oral, Trivalent Unknown Completed [facility] Poliovirus, Live, Oral, Trivalent Unknown Completed [facility] Tetanus/Diptheria [facility] Influenza Virus Vaccine Quad IM, Preserv and ABX Free 6 MO-64 YRS (FLUCELVAX) Unknown Completed [facility] HPV Unknown Completed [facility] Meningococcal Polysaccharide (groups A, C, Y and W-135) conjugate vaccine (MCV4P) Unknown Completed [facility] TDAP (ADACEL) VACCINE Unknown Completed [facility] Influenza Virus Vaccine Quad .5 mL IM 6+ MO (FLUZONE/FLULAVAL/FL UARIX) Unknown Completed [facility] TDAP (ADACEL) VACCINE Unknown Completed [facility] TDAP (ADACEL) VACCINE Unknown Completed [facility] Influenza Virus Vaccine Quad .5 mL IM 6+ MO (FLUZONE/FLULAVAL/FL UARIX) Unknown Completed [facility] HPV Unknown Completed [facility] Meningococcal Polysaccharide (groups A, C, Y and W-135) conjugate vaccine (MCV4P) Unknown Completed [facility] Varicella (varivax)(chicken pox) Unknown Completed [facility] SARS-COV-2 COVID-19 VACCINE - (MODERNA) Unknown Completed [facility] SARS-COV-2 COVID-19 VACCINE - (MODERNA) Unknown Completed [facility] DTaP, Unspecified Formulation Unknown Completed [facility] DTaP, Unspecified Formulation Unknown Completed [facility] DTaP, Unspecified Formulation Unknown Completed [facility] DTaP, Unspecified Formulation Unknown Completed [facility] HEPATITIS A Unknown Completed [facility] Hep B, Adol or Pedi Dosage Unknown Completed [facility] Hep B, Adol or Pedi Dosage Unknown Completed [facility] HIB 4 Dose Schedule Unknown Completed [facility] HIB 4 Dose Schedule Unknown Completed [facility] MMR Unknown Completed [facility] IPV Unknown Completed [facility] IPV Unknown Completed [facility] Poliovirus, Live, Oral, Trivalent Unknown Completed [facility] Poliovirus, Live, Oral, Trivalent Unknown Completed [facility] Tetanus/Diptheria [facility] Influenza Virus Vaccine Quad IM, Preserv and ABX Free 6 MO-64 YRS (FLUCELVAX) Unknown Completed [facility] HPV Unknown Completed [facility] Meningococcal Polysaccharide (groups A, C, Y and W-135) conjugate vaccine (MCV4P) Unknown Completed [facility] TDAP (ADACEL) VACCINE Unknown Completed [facility] Influenza Virus Vaccine Quad .5 mL IM 6+ MO (FLUZONE/FLULAVAL/FL UARIX) Unknown Completed [facility] TDAP (ADACEL) VACCINE Unknown Completed [facility] TDAP (ADACEL) VACCINE Unknown Completed [facility] Influenza Virus Vaccine Quad .5 mL IM 6+ MO (FLUZONE/FLULAVAL/FL UARIX) Unknown Completed [facility] HPV Unknown Completed [facility] Meningococcal Polysaccharide (groups A, C, Y and W-135) conjugate vaccine (MCV4P) Unknown Completed [facility] Varicella (varivax)(chicken pox) Unknown Completed [facility] SARS-COV-2 COVID-19 VACCINE - (MODERNA) Unknown Completed [facility] SARS-COV-2 COVID-19 VACCINE - (MODERNA) Unknown Completed [facility] DTaP, Unspecified Formulation Unknown Completed [facility] DTaP, Unspecified Formulation Unknown Completed [facility] DTaP, Unspecified Formulation Unknown Completed [facility] DTaP, Unspecified Formulation Unknown Completed [facility] HEPATITIS A Unknown Completed [facility] Hep B, Adol or Pedi Dosage Unknown Completed [facility] Hep B, Adol or Pedi Dosage Unknown Completed [facility] HIB 4 Dose Schedule Unknown Completed [facility] HIB 4 Dose Schedule Unknown Completed [facility] MMR Unknown Completed [facility] IPV Unknown Completed [facility] IPV Unknown Completed [facility] Poliovirus, Live, Oral, Trivalent Unknown Completed [facility] Poliovirus, Live, Oral, Trivalent Unknown Completed [facility] Tetanus/Diptheria Unknown [facility] Completed [facility] Influenza Virus Vaccine Quad IM, Preserv and ABX Free 6 MO-64 YRS (FLUCELVAX) Unknown Completed [facility] HPV Unknown Completed [facility] Meningococcal Polysaccharide (groups A, C, Y and W-135) conjugate vaccine (MCV4P) Unknown Completed [facility] TDAP (ADACEL) VACCINE Unknown Completed [facility] Influenza Virus Vaccine Quad .5 mL IM 6+ MO (FLUZONE/FLULAVAL/FL UARIX) Unknown Completed [facility] TDAP (ADACEL) VACCINE Unknown Completed [facility] TDAP (ADACEL) VACCINE Unknown Completed [facility] Influenza Virus Vaccine Quad .5 mL IM 6+ MO (FLUZONE/FLULAVAL/FL UARIX) Unknown Completed [facility] HPV Unknown Completed [facility] Meningococcal Polysaccharide (groups A, C, Y and W-135) conjugate vaccine (MCV4P) Unknown Completed [facility] Varicella (varivax)(chicken pox) Unknown Completed [facility] SARS-COV-2 COVID-19 VACCINE - (MODERNA) Unknown Completed [facility] SARS-COV-2 COVID-19 VACCINE - (MODERNA) Unknown Completed [facility] DTaP, Unspecified Formulation Unknown Completed [facility] DTaP, Unspecified Formulation Unknown Completed [facility] DTaP, Unspecified Formulation Unknown Completed [facility] DTaP, Unspecified Formulation Unknown Completed [facility] HEPATITIS A Unknown Completed [facility] Hep B, Adol or Pedi Dosage Unknown Completed [facility] Hep B, Adol or Pedi Dosage Unknown Completed [facility] HIB 4 Dose Schedule Unknown Completed [facility] HIB 4 Dose Schedule Unknown Completed [facility] MMR Unknown Completed [facility] IPV Unknown Completed [facility] IPV Unknown Completed [facility] Poliovirus, Live, Oral, Trivalent Unknown Completed [facility] Poliovirus, Live, Oral, Trivalent Unknown Completed [facility] Tetanus/Diptheria Unknown Completed [facility] TDAP Unknown Completed [facility] Influenza Virus Vaccine Quad IM, Preserv and ABX Free 6 MO-64 YRS (FLUCELVAX) Unknown Completed [facility] HPV Unknown Completed [facility] Meningococcal Polysaccharide (groups A, C, Y and W-135) conjugate vaccine (MCV4P) Unknown Completed [facility] TDAP (ADACEL) VACCINE Unknown Completed [facility] Influenza Virus Vaccine Quad .5 mL IM 6+ MO (FLUZONE/FLULAVAL/FL UARIX) Unknown Completed [facility] TDAP (ADACEL) VACCINE Unknown Completed [facility] TDAP (ADACEL) VACCINE Unknown Completed [facility] Influenza Virus Vaccine Quad .5 mL IM 6+ MO (FLUZONE/FLULAVAL/FL UARIX) Unknown Completed [facility] HPV Unknown Completed [facility] Meningococcal Polysaccharide (groups A, C, Y and W-135) conjugate vaccine (MCV4P) Unknown Completed [facility] Varicella (varivax)(chicken pox) Unknown Completed [facility] SARS-COV-2 COVID-19 VACCINE - (MODERNA) Unknown Completed [facility] SARS-COV-2 COVID-19 VACCINE - (MODERNA) Unknown Completed [facility] DTaP, Unspecified Formulation Unknown Completed [facility] DTaP, Unspecified Formulation Unknown Completed [facility] DTaP, Unspecified Formulation Unknown Completed [facility] DTaP, Unspecified Formulation Unknown Completed [facility] HEPATITIS A Unknown Completed [facility] Hep B, Adol or Pedi Dosage Unknown Completed [facility] Hep B, Adol or Pedi Dosage Unknown Completed [facility] HIB 4 Dose Schedule Unknown Completed [facility] HIB 4 Dose Schedule Unknown Completed [facility] MMR Unknown Completed [facility] IPV Unknown Completed [facility] IPV Unknown Completed [facility] Poliovirus, Live, Oral, Trivalent Unknown Completed [facility] Poliovirus, Live, Oral, Trivalent Unknown Completed [facility] Tetanus/Diptheria Unknown Completed [facility] TDAP Unknown Completed [facility] Influenza Virus Vaccine Quad IM, Preserv and ABX Free 6 MO-64 YRS (FLUCELVAX) Unknown Completed [facility] HPV Unknown Completed [facility] Meningococcal Polysaccharide (groups A, C, Y and W-135) conjugate vaccine (MCV4P) Unknown Completed [facility] TDAP (ADACEL) VACCINE Unknown Completed [facility] Influenza Virus Vaccine Quad .5 mL IM 6+ MO (FLUZONE/FLULAVAL/FL UARIX) Unknown Completed [facility] TDAP (ADACEL) VACCINE Unknown Completed [facility] TDAP (ADACEL) VACCINE Unknown Completed [facility] Influenza Virus Vaccine Quad .5 mL IM 6+ MO (FLUZONE/FLULAVAL/FL UARIX) Unknown Completed [facility] HPV Unknown Completed [facility] Meningococcal Polysaccharide (groups A, C, Y and W-135) conjugate vaccine (MCV4P) Unknown Completed [facility] Varicella (varivax)(chicken pox) Unknown Completed [facility] SARS-COV-2 COVID-19 VACCINE - (MODERNA) Unknown Completed [facility] SARS-COV-2 COVID-19 VACCINE - (MODERNA) Unknown Completed [facility] DTaP, Unspecified Formulation Unknown Completed [facility] DTaP, Unspecified Formulation Unknown Completed [facility] DTaP, Unspecified Formulation Unknown Completed [facility] DTaP, Unspecified Formulation Unknown Completed [facility] HEPATITIS A Unknown Completed [facility] Hep B, Adol or Pedi Dosage Unknown Completed [facility] Hep B, Adol or Pedi Dosage Unknown Completed [facility] HIB 4 Dose Schedule Unknown Completed [facility] HIB 4 Dose Schedule Unknown Completed [facility] MMR Unknown Completed [facility] IPV Unknown Completed [facility] IPV Unknown Completed [facility] Poliovirus, Live, Oral, Trivalent Unknown Completed [facility] Poliovirus, Live, Oral, Trivalent Unknown Completed [facility] Tetanus/Diptheria Unknown [facility] Completed [facility] Influenza Virus Vaccine Quad IM, Preserv and ABX Free 6 MO-64 YRS (FLUCELVAX) Unknown Completed [facility] HPV Unknown Completed [facility] Meningococcal Polysaccharide (groups A, C, Y and W-135) conjugate vaccine (MCV4P) Unknown Completed [facility] TDAP (ADACEL) VACCINE Unknown Completed [facility] Influenza Virus Vaccine Quad .5 mL IM 6+ MO (FLUZONE/FLULAVAL/FL UARIX) Unknown Completed [facility] TDAP (ADACEL) VACCINE Unknown Completed [facility] TDAP (ADACEL) VACCINE Unknown Completed [facility] Influenza Virus Vaccine Quad .5 mL IM 6+ MO (FLUZONE/FLULAVAL/FL UARIX) Unknown Completed [facility] HPV Unknown Completed [facility] Meningococcal Polysaccharide (groups A, C, Y and W-135) conjugate vaccine (MCV4P) Unknown Completed [facility] Varicella (varivax)(chicken pox) Unknown Completed [facility] SARS-COV-2 COVID-19 VACCINE - (MODERNA) [facility] [facility] SARS-COV-2 COVID-19 VACCINE - (MODERNA) Unknown Completed [facility] DTaP, Unspecified Formulation Unknown Completed [facility] DTaP, Unspecified Formulation Unknown Completed [facility] DTaP, Unspecified Formulation Unknown Completed [facility] DTaP, Unspecified Formulation Unknown Completed [facility] HEPATITIS A Unknown Completed [facility] Hep B, Adol or Pedi Dosage Unknown Completed [facility] Hep B, Adol or Pedi Dosage Unknown Completed [facility] HIB 4 Dose Schedule Unknown Completed [facility] HIB 4 Dose Schedule Unknown Completed [facility] MMR Unknown Completed [facility] IPV Unknown Completed [facility] IPV Unknown Completed [facility] Poliovirus, Live, Oral, Trivalent Unknown Completed [facility] Poliovirus, Live, Oral, Trivalent Unknown Completed [facility] Tetanus/Diptheria Unknown [facility] Influenza Virus Vaccine Quad IM, Preserv and ABX Free 6 MO-64 YRS (FLUCELVAX) Unknown Completed [facility] HPV Unknown Completed [facility] Meningococcal Polysaccharide (groups A, C, Y and W-135) conjugate vaccine (MCV4P) Unknown Completed [facility] TDAP (ADACEL) VACCINE Unknown Completed [facility] Influenza Virus Vaccine Quad .5 mL IM 6+ MO (FLUZONE/FLULAVAL/FL UARIX) Unknown Completed [facility] TDAP (ADACEL) VACCINE Unknown Completed [facility] TDAP (ADACEL) VACCINE Unknown Completed [facility] Influenza Virus Vaccine Quad .5 mL IM 6+ MO (FLUZONE/FLULAVAL/FL UARIX) Unknown Completed [facility] HPV Unknown Completed [facility] Meningococcal Polysaccharide (groups A, C, Y and W-135) conjugate vaccine (MCV4P) Unknown Completed [facility] Varicella (varivax)(chicken pox) Unknown Completed [facility] SARS-COV-2 COVID-19 VACCINE - (MODERNA) Unknown Completed [facility] SARS-COV-2 COVID-19 VACCINE - (MODERNA) Unknown Completed [facility] DTaP, Unspecified Formulation Unknown Completed [facility] DTaP, Unspecified Formulation Unknown Completed [facility] DTaP, Unspecified Formulation Unknown Completed [facility] DTaP, Unspecified Formulation Unknown Completed [facility] HEPATITIS A Unknown Completed [facility] Hep B, Adol or Pedi Dosage Unknown Completed [facility] Hep B, Adol or Pedi Dosage Unknown Completed [facility] HIB 4 Dose Schedule Unknown Completed [facility] HIB 4 Dose Schedule Unknown Completed [facility] MMR Unknown Completed [facility] IPV Unknown Completed [facility] IPV Unknown Completed [facility] Poliovirus, Live, Oral, Trivalent Unknown Completed [facility] Poliovirus, Live, Oral, Trivalent Unknown Completed [facility] Tetanus/Diptheria Unknown Completed [facility] TDAP Unknown Completed [facility] Influenza Virus Vaccine Quad IM, Preserv and ABX Free 6 MO-64 YRS (FLUCELVAX) Unknown Completed [facility] HPV Unknown Completed [facility] Meningococcal Polysaccharide (groups A, C, Y and W-135) conjugate vaccine (MCV4P) Unknown Completed [facility] TDAP (ADACEL) VACCINE Unknown Completed [facility] Influenza Virus Vaccine Quad .5 mL IM 6+ MO (FLUZONE/FLULAVAL/FL UARIX) Unknown Completed [facility] TDAP (ADACEL) VACCINE Unknown Completed [facility] TDAP (ADACEL) VACCINE Unknown Completed [facility] Influenza Virus Vaccine Quad .5 mL IM 6+ MO (FLUZONE/FLULAVAL/FL UARIX) Unknown Completed [facility] HPV Unknown Completed [facility] Meningococcal Polysaccharide (groups A, C, Y and W-135) conjugate vaccine (MCV4P) Unknown Completed [facility] Varicella (varivax)(chicken pox) Unknown Completed [facility] SARS-COV-2 COVID-19 VACCINE - (MODERNA) Unknown Completed [facility] SARS-COV-2 COVID-19 VACCINE - (MODERNA) Unknown Completed [facility] DTaP, Unspecified Formulation Unknown Completed [facility] DTaP, Unspecified Formulation Unknown Completed [facility] DTaP, Unspecified Formulation Unknown Completed [facility] DTaP, Unspecified Formulation Unknown Completed [facility] HEPATITIS A Unknown Completed [facility] Hep B, Adol or Pedi Dosage Unknown Completed [facility] Hep B, Adol or Pedi Dosage Unknown Completed [facility] HIB 4 Dose Schedule Unknown Completed [facility] HIB 4 Dose Schedule Unknown Completed [facility] MMR Unknown Completed [facility] IPV Unknown Completed [facility] IPV Unknown Completed [facility] Poliovirus, Live, Oral, Trivalent Unknown Completed [facility] Poliovirus, Live, Oral, Trivalent Unknown Completed [facility] Tetanus/Diptheria Unknown Completed [facility] TDAP Unknown Completed [facility] Influenza Virus Vaccine Quad IM, Preserv and ABX Free 6 MO-64 YRS (FLUCELVAX) Unknown Completed [facility] HPV Unknown Completed [facility] Meningococcal Polysaccharide (groups A, C, Y and W-135) conjugate vaccine (MCV4P) Unknown Completed [facility] TDAP (ADACEL) VACCINE Unknown Completed [facility] Influenza Virus Vaccine Quad .5 mL IM 6+ MO (FLUZONE/FLULAVAL/FL UARIX) Unknown Completed [facility] TDAP (ADACEL) VACCINE Unknown Completed [facility] TDAP (ADACEL) VACCINE Unknown Completed [facility] Influenza Virus Vaccine Quad .5 mL IM 6+ MO (FLUZONE/FLULAVAL/FL UARIX) Unknown Completed [facility] HPV Unknown Completed [facility] Meningococcal Polysaccharide (groups A, C, Y and W-135) conjugate vaccine (MCV4P) Unknown Completed [facility] Varicella (varivax)(chicken pox) Unknown Completed [facility] SARS-COV-2 COVID-19 VACCINE - (MODERNA) Unknown Completed [facility] SARS-COV-2 COVID-19 VACCINE - (MODERNA) Unknown Completed [facility] DTaP, Unspecified Formulation Unknown Completed [facility] DTaP, Unspecified Formulation Unknown Completed [facility] DTaP, Unspecified Formulation Unknown Completed [facility] DTaP, Unspecified Formulation Unknown Completed [facility] HEPATITIS A Unknown Completed [facility] Hep B, Adol or Pedi Dosage Unknown Completed [facility] Hep B, Adol or Pedi Dosage Unknown Completed [facility] HIB 4 Dose Schedule Unknown Completed [facility] HIB 4 Dose Schedule Unknown Completed [facility] MMR Unknown Completed [facility] IPV Unknown Completed [facility] IPV Unknown Completed [facility] Poliovirus, Live, Oral, Trivalent Unknown Completed [facility] Poliovirus, Live, Oral, Trivalent Unknown Completed [facility] Tetanus/Diptheria Unknown [facility] Com[facility] Influenza Virus Vaccine Quad IM, Preserv and ABX Free 6 MO-64 YRS (FLUCELVAX) Unknown Completed [facility] HPV Unknown Completed [facility] Meningococcal Polysaccharide (groups A, C, Y and W-135) conjugate vaccine (MCV4P) Unknown Completed [facility] TDAP (ADACEL) VACCINE Unknown Completed [facility] Influenza Virus Vaccine Quad .5 mL IM 6+ MO (FLUZONE/FLULAVAL/FL UARIX) Unknown Completed [facility] TDAP (ADACEL) VACCINE Unknown Completed [facility] TDAP (ADACEL) VACCINE Unknown Completed [facility] Influenza Virus Vaccine Quad .5 mL IM 6+ MO (FLUZONE/FLULAVAL/FL UARIX) Unknown Completed [facility] HPV Unknown Completed [facility] Meningococcal Polysaccharide (groups A, C, Y and W-135) conjugate vaccine (MCV4P) Unknown Completed [facility] Varicella (varivax)(chicken pox) Unknown Completed [facility] SARS-COV-2 COVID-19 VACCINE - (MODERNA) Unknown Completed [facility] SARS-COV-2 COVID-19 VACCINE - (MODERNA) Unknown Completed [facility] DTaP, Unspecified Formulation Unknown Completed [facility] DTaP, Unspecified Formulation Unknown Completed [facility] DTaP, Unspecified Formulation Unknown Completed [facility] DTaP, Unspecified Formulation Unknown Completed [facility] HEPATITIS A Unknown Completed [facility] Hep B, Adol or Pedi Dosage Unknown Completed [facility] Hep B, Adol or Pedi Dosage Unknown Completed [facility] HIB 4 Dose Schedule Unknown Completed [facility] HIB 4 Dose Schedule Unknown Completed [facility] MMR Unknown Completed [facility] IPV Unknown Completed [facility] IPV Unknown Completed [facility] Poliovirus, Live, Oral, Trivalent Unknown Completed [facility] Poliovirus, Live, Oral, Trivalent Unknown Completed [facility] Tetanus/Diptheria Unknown Completed [facility] TDAP Unknown Completed [facility] Influenza Virus Vaccine Quad IM, Preserv and ABX Free 6 MO-64 YRS (FLUCELVAX) Unknown Completed [facility] HPV Unknown Completed [facility] Meningococcal Polysaccharide (groups A, C, Y and W-135) conjugate vaccine (MCV4P) Unknown Completed [facility] TDAP (ADACEL) VACCINE Unknown Completed [facility] Influenza Virus Vaccine Quad .5 mL IM 6+ MO (FLUZONE/FLULAVAL/FL UARIX) Unknown Completed [facility] TDAP (ADACEL) VACCINE Unknown Completed [facility] TDAP (ADACEL) VACCINE Unknown Completed [facility] Influenza Virus Vaccine Quad .5 mL IM 6+ MO (FLUZONE/FLULAVAL/FL UARIX) Unknown Completed [facility] HPV Unknown Completed [facility] Meningococcal Polysaccharide (groups A, C, Y and W-135) conjugate vaccine (MCV4P) Unknown Completed [facility] Varicella (varivax)(chicken pox) Unknown Completed [facility] SARS-COV-2 COVID-19 VACCINE - (MODERNA) Unknown Completed [facility] SARS-COV-2 COVID-19 VACCINE - (MODERNA) Unknown Completed [facility] DTaP, Unspecified Formulation Unknown Completed [facility] DTaP, Unspecified Formulation Unknown Completed [facility] DTaP, Unspecified Formulation Unknown Completed [facility] DTaP, Unspecified Formulation Unknown Completed [facility] HEPATITIS A Unknown Completed [facility] Hep B, Adol or Pedi Dosage Unknown Completed [facility] Hep B, Adol or Pedi Dosage Unknown Completed [facility] HIB 4 Dose Schedule Unknown Completed [facility] HIB 4 Dose Schedule Unknown Completed [facility] MMR Unknown Completed [facility] IPV Unknown Completed [facility] IPV Unknown Completed [facility] Poliovirus, Live, Oral, Trivalent Unknown Completed [facility] Poliovirus, Live, Oral, Trivalent Unknown Completed [facility] Tetanus/Diptheria Unknown Completed [facility] TDAP Unknown Completed [facility] Influenza Virus Vaccine Quad IM, Preserv and ABX Free 6 MO-64 YRS (FLUCELVAX) Unknown Completed [facility] HPV Unknown Completed [facility] Meningococcal Polysaccharide (groups A, C, Y and W-135) conjugate vaccine (MCV4P) Unknown Completed [facility] TDAP (ADACEL) VACCINE Unknown Completed [facility] Influenza Virus Vaccine Quad .5 mL IM 6+ MO (FLUZONE/FLULAVAL/FL UARIX) Unknown Completed [facility] TDAP (ADACEL) VACCINE Unknown Completed [facility] TDAP (ADACEL) VACCINE Unknown Completed [facility] Influenza Virus Vaccine Quad .5 mL IM 6+ MO (FLUZONE/FLULAVAL/FL UARIX) Unknown Completed [facility] HPV Unknown Completed [facility] Meningococcal Polysaccharide (groups A, C, Y and W-135) conjugate vaccine (MCV4P) Unknown Completed [facility] Varicella (varivax)(chicken pox) Unknown Completed [facility] SARS-COV-2 COVID-19 VACCINE - (MODERNA) Unknown Completed [facility] SARS-COV-2 COVID-19 VACCINE - (MODERNA) Unknown Completed [facility] DTaP, Unspecified Formulation Unknown Completed [facility] DTaP, Unspecified Formulation Unknown Completed [facility] DTaP, Unspecified Formulation Unknown Completed [facility] DTaP, Unspecified Formulation Unknown Completed [facility] HEPATITIS A Unknown Completed [facility] Hep B, Adol or Pedi Dosage Unknown Completed [facility] Hep B, Adol or Pedi Dosage Unknown Completed [facility] HIB 4 Dose Schedule Unknown Completed [facility] HIB 4 Dose Schedule Unknown Completed [facility] MMR Unknown Completed [facility] IPV Unknown Completed [facility] IPV Unknown Completed [facility] Poliovirus, Live, Oral, Trivalent Unknown Completed [facility] Poliovirus, Live, Oral, Trivalent Unknown Completed [facility] Tetanus/Diptheria Unknown Completed [facility] TDAP Unknown Completed [facility] Influenza Virus Vaccine Quad IM, Preserv and ABX Free 6 MO-64 YRS (FLUCELVAX) Unknown Completed [facility] HPV Unknown Completed [facility] Meningococcal Polysaccharide (groups A, C, Y and W-135) conjugate vaccine (MCV4P) Unknown Completed [facility] TDAP (ADACEL) VACCINE Unknown Completed [facility] Influenza Virus Vaccine Quad .5 mL IM 6+ MO (FLUZONE/FLULAVAL/FL UARIX) Unknown Completed [facility] TDAP (ADACEL) VACCINE Unknown Completed [facility] TDAP (ADACEL) VACCINE Unknown Completed [facility] Influenza Virus Vaccine Quad .5 mL IM 6+ MO (FLUZONE/FLULAVAL/FL UARIX) Unknown Completed [facility] HPV Unknown Completed [facility] Meningococcal Polysaccharide (groups A, C, Y and W-135) conjugate vaccine (MCV4P) Unknown Completed [facility] Varicella (varivax)(chicken pox) Unknown Completed [facility] SARS-COV-2 COVID-19 VACCINE - (MODERNA) Unknown Completed [facility] SARS-COV-2 COVID-19 VACCINE - (MODERNA) Unknown Completed [facility] DTaP, Unspecified Formulation Unknown Completed [facility] DTaP, Unspecified Formulation Unknown Completed [facility] DTaP, Unspecified Formulation Unknown Completed [facility] DTaP, Unspecified Formulation Unknown Completed [facility] HEPATITIS A Unknown Completed [facility] Hep B, Adol or Pedi Dosage Unknown Completed [facility] Hep B, Adol or Pedi Dosage Unknown Completed [facility] HIB 4 Dose Schedule Unknown Completed [facility] HIB 4 Dose Schedule Unknown Completed [facility] MMR Unknown Completed [facility] IPV Unknown Completed [facility] IPV Unknown Completed [facility] Poliovirus, Live, Oral, Trivalent Unknown Completed [facility] Poliovirus, Live, Oral, Trivalent Unknown Completed [facility] Tetanus/Diptheria Unknown Completed [facility] TDAP Unknown Completed [facility] Influenza Virus Vaccine Quad IM, Preserv and ABX Free 6 MO-64 YRS (FLUCELVAX) Unknown Completed [facility] HPV Unknown Completed [facility] Meningococcal Polysaccharide (groups A, C, Y and W-135) conjugate vaccine (MCV4P) Unknown Completed [facility] TDAP (ADACEL) VACCINE Unknown Completed [facility] Influenza Virus Vaccine Quad .5 mL IM 6+ MO (FLUZONE/FLULAVAL/FL UARIX) Unknown Completed [facility] TDAP (ADACEL) VACCINE Unknown Completed [facility] TDAP (ADACEL) VACCINE Unknown Completed [facility] Influenza Virus Vaccine Quad .5 mL IM 6+ MO (FLUZONE/FLULAVAL/FL UARIX) Unknown Completed [facility] HPV Unknown Completed [facility] Meningococcal Polysaccharide (groups A, C, Y and W-135) conjugate vaccine (MCV4P) Unknown Completed [facility] Varicella (varivax)(chicken pox) Unknown Completed [facility] SARS-COV-2 COVID-19 VACCINE - (MODERNA) Unknown Completed [facility] SARS-COV-2 COVID-19 VACCINE - (MODERNA) Unknown Completed [facility] DTaP, Unspecified Formulation Unknown Completed [facility] DTaP, Unspecified Formulation Unknown Completed [facility] DTaP, Unspecified Formulation Unknown Completed [facility] DTaP, Unspecified Formulation Unknown Completed [facility] HEPATITIS A Unknown Completed [facility] Hep B, Adol or Pedi Dosage Unknown Completed [facility] Hep B, Adol or Pedi Dosage Unknown Completed [facility] HIB 4 Dose Schedule Unknown Completed [facility] HIB 4 Dose Schedule Unknown Completed [facility] MMR Unknown Completed [facility] IPV Unknown Completed [facility] IPV Unknown Completed [facility] Poliovirus, Live, Oral, Trivalent Unknown Completed [facility] Poliovirus, Live, Oral, Trivalent Unknown Completed [facility] Tetanus/Diptheria [facility] Influenza Virus Vaccine Quad IM, Preserv and ABX Free 6 MO-64 YRS (FLUCELVAX) Unknown Completed [facility] HPV Unknown Completed [facility] Meningococcal Polysaccharide (groups A, C, Y and W-135) conjugate vaccine (MCV4P) Unknown Completed [facility] TDAP (ADACEL) VACCINE Unknown Completed [facility] Influenza Virus Vaccine Quad .5 mL IM 6+ MO (FLUZONE/FLULAVAL/FL UARIX) Unknown Completed [facility] TDAP (ADACEL) VACCINE Unknown Completed [facility] TDAP (ADACEL) VACCINE Unknown Completed [facility] Influenza Virus Vaccine Quad .5 mL IM 6+ MO (FLUZONE/FLULAVAL/FL UARIX) Unknown Completed [facility] HPV Unknown Completed [facility] Meningococcal Polysaccharide (groups A, C, Y and W-135) conjugate vaccine (MCV4P) Unknown Completed [facility] Varicella (varivax)(chicken pox) Unknown Completed [facility] SARS-COV-2 COVID-19 VACCINE - (MODERNA) Unknown Completed [facility] SARS-COV-2 COVID-19 VACCINE - (MODERNA) Unknown Completed [facility] DTaP, Unspecified Formulation Unknown Completed [facility] DTaP, Unspecified Formulation Unknown Completed [facility] DTaP, Unspecified Formulation Unknown Completed [facility] DTaP, Unspecified Formulation Unknown Completed [facility] HEPATITIS A Unknown Completed [facility] Hep B, Adol or Pedi Dosage Unknown Completed [facility] Hep B, Adol or Pedi Dosage Unknown Completed [facility] HIB 4 Dose Schedule Unknown Completed [facility] HIB 4 Dose Schedule Unknown Completed [facility] MMR Unknown Completed [facility] IPV Unknown Completed [facility] IPV Unknown Completed [facility] Poliovirus, Live, Oral, Trivalent Unknown Completed [facility] Poliovirus, Live, Oral, Trivalent Unknown Completed [facility] Tetanus/Diptheria [facility] Influenza Virus Vaccine Quad IM, Preserv and ABX Free 6 MO-64 YRS (FLUCELVAX) Unknown Completed [facility] HPV Unknown Completed [facility] Meningococcal Polysaccharide (groups A, C, Y and W-135) conjugate vaccine (MCV4P) Unknown Completed [facility] TDAP (ADACEL) VACCINE Unknown Completed [facility] Influenza Virus Vaccine Quad .5 mL IM 6+ MO (FLUZONE/FLULAVAL/FL UARIX) Unknown Completed [facility] TDAP (ADACEL) VACCINE Unknown Completed [facility] TDAP (ADACEL) VACCINE Unknown Completed [facility] Influenza Virus Vaccine Quad .5 mL IM 6+ MO (FLUZONE/FLULAVAL/FL UARIX) Unknown Completed [facility] HPV Unknown Completed [facility] Meningococcal Polysaccharide (groups A, C, Y and W-135) conjugate vaccine (MCV4P) Unknown Completed [facility] Varicella (varivax)(chicken pox) Unknown Completed [facility] SARS-COV-2 COVID-19 VACCINE - (MODERNA) Unknown Completed [facility] SARS-COV-2 COVID-19 VACCINE - (MODERNA) Unknown Completed [facility] DTaP, Unspecified Formulation Unknown Completed [facility] DTaP, Unspecified Formulation Unknown Completed [facility] DTaP, Unspecified Formulation Unknown Completed [facility] DTaP, Unspecified Formulation Unknown Completed [facility] HEPATITIS A Unknown Completed [facility] Hep B, Adol or Pedi Dosage Unknown Completed [facility] Hep B, Adol or Pedi Dosage Unknown Completed [facility] HIB 4 Dose Schedule Unknown Completed [facility] HIB 4 Dose Schedule Unknown Completed [facility] MMR Unknown Completed [facility] IPV Unknown Completed [facility] IPV Unknown Completed [facility] Poliovirus, Live, Oral, Trivalent Unknown Completed [facility] Poliovirus, Live, Oral, Trivalent Unknown Completed [facility]heria [facility] Influenza Virus Vaccine Quad IM, Preserv and ABX Free 6 MO-64 YRS (FLUCELVAX) Unknown Completed [facility] HPV Unknown Completed [facility] Meningococcal Polysaccharide (groups A, C, Y and W-135) conjugate vaccine (MCV4P) Unknown Completed [facility] TDAP (ADACEL) VACCINE Unknown Completed [facility] Influenza Virus Vaccine Quad .5 mL IM 6+ MO (FLUZONE/FLULAVAL/FL UARIX) Unknown Completed [facility] TDAP (ADACEL) VACCINE Unknown Completed [facility] TDAP (ADACEL) VACCINE Unknown Completed [facility] Influenza Virus Vaccine Quad .5 mL IM 6+ MO (FLUZONE/FLULAVAL/FL UARIX) Unknown Completed [facility] HPV Unknown Completed [facility] Meningococcal Polysaccharide (groups A, C, Y and W-135) conjugate vaccine (MCV4P) Unknown Completed [facility] Varicella (varivax)(chicken pox) Unknown Completed [facility] SARS-COV-2 COVID-19 VACCINE - (MODERNA) Unknown Completed [facility] SARS-COV-2 COVID-19 VACCINE - (MODERNA) Unknown Completed [facility] DTaP, Unspecified Formulation Unknown Completed [facility] DTaP, Unspecified Formulation Unknown Completed [facility] DTaP, Unspecified Formulation Unknown Completed [facility] DTaP, Unspecified Formulation Unknown Completed [facility] HEPATITIS A Unknown Completed [facility] Hep B, Adol or Pedi Dosage Unknown Completed [facility] Hep B, Adol or Pedi Dosage Unknown Completed [facility] HIB 4 Dose Schedule Unknown Completed [facility] HIB 4 Dose Schedule Unknown Completed [facility] MMR Unknown Completed [facility] IPV Unknown Completed [facility] IPV Unknown Completed [facility] Poliovirus, Live, Oral, Trivalent Unknown Completed [facility] Poliovirus, Live, Oral, Trivalent Unknown Completed [facility] Tetanus/Diptheria Unknown Completed [facility] TDAP Unknown Completed [facility] Influenza Virus Vaccine Quad IM, Preserv and ABX Free 6 MO-64 YRS (FLUCELVAX) Unknown Completed [facility] HPV Unknown Completed [facility] Meningococcal Polysaccharide (groups A, C, Y and W-135) conjugate vaccine (MCV4P) Unknown Completed [facility] TDAP (ADACEL) VACCINE Unknown Completed [facility] Influenza Virus Vaccine Quad .5 mL IM 6+ MO (FLUZONE/FLULAVAL/FL UARIX) Unknown Completed [facility] TDAP (ADACEL) VACCINE Unknown Completed [facility] TDAP (ADACEL) VACCINE Unknown Completed [facility] Influenza Virus Vaccine Quad .5 mL IM 6+ MO (FLUZONE/FLULAVAL/FL UARIX) Unknown Completed [facility] HPV Unknown Completed [facility] Meningococcal Polysaccharide (groups A, C, Y and W-135) conjugate vaccine (MCV4P) Unknown Completed [facility] Varicella (varivax)(chicken pox) Unknown Completed [facility] SARS-COV-2 COVID-19 VACCINE - (MODERNA) Unknown Completed [facility] SARS-COV-2 COVID-19 VACCINE - (MODERNA) Unknown Completed [facility] DTaP, Unspecified Formulation Unknown Completed [facility] DTaP, Unspecified Formulation Unknown Completed [facility] DTaP, Unspecified Formulation Unknown Completed [facility] DTaP, Unspecified Formulation Unknown Completed [facility] HEPATITIS A Unknown Completed [facility] Hep B, Adol or Pedi Dosage Unknown Completed [facility] Hep B, Adol or Pedi Dosage Unknown Completed [facility] HIB 4 Dose Schedule Unknown Completed [facility] HIB 4 Dose Schedule Unknown Completed [facility] MMR Unknown Completed [facility] IPV Unknown Completed [facility] IPV Unknown Completed [facility] Poliovirus, Live, Oral, Trivalent Unknown Completed [facility] Poliovirus, Live, Oral, Trivalent Unknown Completed [facility] Tetanus/Diptheria Unknown [facility] Influenza Virus Vaccine Quad IM, Preserv and ABX Free 6 MO-64 YRS (FLUCELVAX) Unknown Completed [facility] HPV Unknown Completed [facility] Meningococcal Polysaccharide (groups A, C, Y and W-135) conjugate vaccine (MCV4P) Unknown Completed [facility] TDAP (ADACEL) VACCINE Unknown Completed [facility] Influenza Virus Vaccine Quad .5 mL IM 6+ MO (FLUZONE/FLULAVAL/FL UARIX) Unknown Completed [facility] TDAP (ADACEL) VACCINE Unknown Completed [facility] TDAP (ADACEL) VACCINE Unknown Completed [facility] Influenza Virus Vaccine Quad .5 mL IM 6+ MO (FLUZONE/FLULAVAL/FL UARIX) Unknown Completed [facility] HPV Unknown Completed [facility] Meningococcal Polysaccharide (groups A, C, Y and W-135) conjugate vaccine (MCV4P) Unknown Completed [facility] Varicella (varivax)(chicken pox) Unknown Completed [facility] SARS-COV-2 COVID-19 VACCINE - (MODERNA) Unknown Completed [facility] SARS-COV-2 COVID-19 VACCINE - (MODERNA) Unknown Completed [facility] DTaP, Unspecified Formulation Unknown Completed [facility] DTaP, Unspecified Formulation Unknown Completed [facility] DTaP, Unspecified Formulation Unknown Completed [facility] DTaP, Unspecified Formulation Unknown Completed [facility] HEPATITIS A Unknown Completed [facility] Hep B, Adol or Pedi Dosage Unknown Completed [facility] Hep B, Adol or Pedi Dosage Unknown Completed [facility] HIB 4 Dose Schedule Unknown Completed [facility] HIB 4 Dose Schedule Unknown Completed [facility] MMR Unknown Completed [facility] IPV Unknown Completed [facility] IPV Unknown Completed [facility] Poliovirus, Live, Oral, Trivalent Unknown Completed [facility] Poliovirus, Live, Oral, Trivalent Unknown Completed [facility] Tetanus/Diptheria Unknown Completed [facility] TDAP Unknown Completed [facility] Influenza Virus Vaccine Quad IM, Preserv and ABX Free 6 MO-64 YRS (FLUCELVAX) Unknown Completed [facility] HPV Unknown Completed [facility] Meningococcal Polysaccharide (groups A, C, Y and W-135) conjugate vaccine (MCV4P) Unknown Completed [facility] TDAP (ADACEL) VACCINE Unknown Completed [facility] Influenza Virus Vaccine Quad .5 mL IM 6+ MO (FLUZONE/FLULAVAL/FL UARIX) Unknown Completed [facility] TDAP (ADACEL) VACCINE Unknown Completed [facility] TDAP (ADACEL) VACCINE Unknown Completed [facility] Influenza Virus Vaccine Quad .5 mL IM 6+ MO (FLUZONE/FLULAVAL/FL UARIX) Unknown Completed [facility] HPV Unknown Completed [facility] Meningococcal Polysaccharide (groups A, C, Y and W-135) conjugate vaccine (MCV4P) Unknown Completed [facility] Varicella (varivax)(chicken pox) Unknown Completed [facility] SARS-COV-2 COVID-19 VACCINE - (MODERNA) Unknown Completed [facility] SARS-COV-2 COVID-19 VACCINE - (MODERNA) Unknown Completed [facility] DTaP, Unspecified Formulation Unknown Completed [facility] DTaP, Unspecified Formulation Unknown Completed [facility] DTaP, Unspecified Formulation Unknown Completed [facility] DTaP, Unspecified Formulation Unknown Completed [facility] HEPATITIS A Unknown Completed [facility] Hep B, Adol or Pedi Dosage Unknown Completed [facility] Hep B, Adol or Pedi Dosage Unknown Completed [facility] HIB 4 Dose Schedule Unknown Completed [facility] HIB 4 Dose Schedule Unknown Completed [facility] MMR Unknown Completed [facility] IPV Unknown Completed [facility] IPV Unknown Completed [facility] Poliovirus, Live, Oral, Trivalent Unknown Completed [facility] Poliovirus, Live, Oral, Trivalent Unknown Completed [facility] Tetanus/Diptheria Unknown [facility] Com[facility] Influenza Virus Vaccine Quad IM, Preserv and ABX Free 6 MO-64 YRS (FLUCELVAX) Unknown Completed [facility] HPV Unknown Completed [facility] Meningococcal Polysaccharide (groups A, C, Y and W-135) conjugate vaccine (MCV4P) Unknown Completed [facility] TDAP (ADACEL) VACCINE Unknown Completed [facility] Influenza Virus Vaccine Quad .5 mL IM 6+ MO (FLUZONE/FLULAVAL/FL UARIX) Unknown Completed [facility] TDAP (ADACEL) VACCINE Unknown Completed [facility] TDAP (ADACEL) VACCINE Unknown Completed [facility] Influenza Virus Vaccine Quad .5 mL IM 6+ MO (FLUZONE/FLULAVAL/FL UARIX) Unknown Completed [facility] HPV Unknown Completed [facility] Meningococcal Polysaccharide (groups A, C, Y and W-135) conjugate vaccine (MCV4P) Unknown Completed [facility] Varicella (varivax)(chicken pox) Unknown Completed [facility] SARS-COV-2 COVID-19 VACCINE - (MODERNA) Unknown Completed [facility] SARS-COV-2 COVID-19 VACCINE - (MODERNA) Unknown Completed [facility] DTaP, Unspecified Formulation Unknown Completed [facility] DTaP, Unspecified Formulation Unknown Completed [facility] DTaP, Unspecified Formulation Unknown Completed [facility] DTaP, Unspecified Formulation Unknown Completed [facility] HEPATITIS A Unknown Completed [facility] Hep B, Adol or Pedi Dosage Unknown Completed [facility] Hep B, Adol or Pedi Dosage Unknown Completed [facility] HIB 4 Dose Schedule Unknown Completed [facility] HIB 4 Dose Schedule Unknown Completed [facility] MMR Unknown Completed [facility] IPV Unknown Completed [facility] IPV Unknown Completed [facility] Poliovirus, Live, Oral, Trivalent Unknown Completed [facility] Poliovirus, Live, Oral, Trivalent Unknown Completed [facility] Tetanus/Diptheria Unknown [facility] Com[facility] Influenza Virus Vaccine Quad IM, Preserv and ABX Free 6 MO-64 YRS (FLUCELVAX) Unknown Completed [facility] DTAP Unknown Completed [facility] HIB 4 Dose Schedule Unknown Completed [facility] Hep B, Adol or Pedi Dosage Unknown Completed [facility] MMR Unknown Completed [facility] Polio (IPV/OPV) Unknown Com[facility] Varicella (varivax)(chicken pox) Unknown Completed [facility] DTAP Unknown Completed [facility] Hep B, Adol or Pedi Dosage Unknown Completed [facility] HIB 4 Dose Schedule Unknown Completed [facility] Polio (IPV/OPV) Unknown Completed [facility] MMR Unknown Completed [facility] Varicella (varivax)(chicken pox) Unknown Completed [facility] HPV Unknown Completed [facility] Meningococcal Polysaccharide (groups A, C, Y and W-135) conjugate vaccine (MCV4P) Unknown Completed [facility] TDAP (ADACEL) VACCINE Unknown Completed [facility] Influenza Virus Vaccine Quad .5 mL IM 6+ MO (FLUZONE/FLULAVAL/FL UARIX) Unknown Completed [facility] TDAP (ADACEL) VACCINE Unknown Completed [facility] TDAP (ADACEL) VACCINE Unknown Completed [facility] Influenza Virus Vaccine Quad .5 mL IM 6+ MO (FLUZONE/FLULAVAL/FL UARIX) Unknown Completed [facility] HPV Unknown Completed [facility] Meningococcal Polysaccharide (groups A, C, Y and W-135) conjugate vaccine (MCV4P) Unknown Completed [facility] Varicella (varivax)(chicken pox) Unknown Completed [facility] SARS-COV-2 COVID-19 VACCINE - (MODERNA) Unknown Completed [facility] SARS-COV-2 COVID-19 VACCINE - (MODERNA) Unknown Completed [facility] DTaP, Unspecified Formulation Unknown Completed [facility] DTaP, Unspecified Formulation Unknown Completed [facility] DTaP, Unspecified Formulation Unknown Completed [facility] DTaP, Unspecified Formulation Unknown Completed [facility] HEPATITIS A Unknown Completed [facility] Hep B, Adol or Pedi Dosage Unknown Completed [facility] Hep B, Adol or Pedi Dosage Unknown Completed [facility] HIB 4 Dose Schedule Unknown Completed [facility] HIB 4 Dose Schedule Unknown Completed [facility] MMR Unknown Completed [facility] IPV Unknown Completed [facility] IPV Unknown Completed [facility] Poliovirus, Live, Oral, Trivalent Unknown Completed [facility] Poliovirus, Live, Oral, Trivalent Unknown Completed [facility] Tetanus/Diptheria Unknown [facility] Completed [facility] Influenza Virus Vaccine Quad IM, Preserv and ABX Free 6 MO-64 YRS (FLUCELVAX) Unknown Completed [facility] HPV Unknown Completed [facility] Meningococcal Polysaccharide (groups A, C, Y and W-135) conjugate vaccine (MCV4P) Unknown Completed [facility] TDAP (ADACEL) VACCINE Unknown Completed [facility] Influenza Virus Vaccine Quad .5 mL IM 6+ MO (FLUZONE/FLULAVAL/FL UARIX) Unknown Completed [facility] TDAP (ADACEL) VACCINE Unknown Completed [facility] TDAP (ADACEL) VACCINE Unknown Completed [facility] Influenza Virus Vaccine Quad .5 mL IM 6+ MO (FLUZONE/FLULAVAL/FL UARIX) Unknown Completed [facility] HPV Unknown Completed [facility] Meningococcal Polysaccharide (groups A, C, Y and W-135) conjugate vaccine (MCV4P) Unknown Completed [facility] Varicella (varivax)(chicken pox) Unknown Completed [facility] SARS-COV-2 COVID-19 VACCINE - (MODERNA) Unknown Completed [facility] SARS-COV-2 COVID-19 VACCINE - (MODERNA) Unknown Completed [facility] DTaP, Unspecified Formulation Unknown Completed [facility] DTaP, Unspecified Formulation Unknown Completed [facility] DTaP, Unspecified Formulation Unknown Completed [facility] DTaP, Unspecified Formulation Unknown Completed [facility] HEPATITIS A Unknown Completed [facility] Hep B, Adol or Pedi Dosage Unknown Completed [facility] Hep B, Adol or Pedi Dosage Unknown Completed [facility] HIB 4 Dose Schedule Unknown Completed [facility] HIB 4 Dose Schedule Unknown Completed [facility] MMR Unknown Completed [facility] IPV Unknown Completed [facility] IPV Unknown Completed [facility] Poliovirus, Live, Oral, Trivalent Unknown Completed [facility] Poliovirus, Live, Oral, Trivalent Unknown Completed [facility] Tetanus/Diptheria Unknown Completed [facility] TDAP Unknown Completed [facility] Influenza Virus Vaccine Quad IM, Preserv and ABX Free 6 MO-64 YRS (FLUCELVAX) Unknown Completed [facility] Vital Signs Vital Name Observation Time Observation Value Comments S ource Systolic blood pressure 2023-10-10 17:38:00 102 mm[Hg] [facility] Diastolic blood pressure 2023-10-10 17:38:00 78 mm[Hg] [facility] Heart rate 2023-10-10 17:38:00 84 /min [facility] Respiratory rate 2023-10-10 17:38:00 18 /min [facility] Body weight 2023-10-10 17:38:00 92.987 kg [facility] BMI 2023-10-10 17:38:00 34.11 kg/m2 [facility] Oxygen saturation in Arterial blood by Pulse oximetry 2023-10-10 17:38:00 99 /min [facility] Systolic blood pressure 2023-09-27 13:45:00 105 mm[Hg] [facility] Diastolic blood pressure 2023-09-27 13:45:00 52 mm[Hg] [facility] Heart rate 2023-09-27 13:45:00 63 /min [facility] Body temperature 2023-09-27 13:45:00 36.61 [place] [facility] Respiratory rate 2023-09-27 13:45:00 16 /min [facility] Oxygen saturation in Arterial blood by Pulse oximetry 2023-09-27 13:45:00 99 /min [facility] Body weight 2023-09-26 14:00:00 103 kg [facility] BMI 2023-09-26 14:00:00 37.79 kg/m2 [facility] Systolic blood pressure 2023-09-18 21:43:00 119 mm[Hg] [facility] Diastolic blood pressure 2023-09-18 21:43:00 75 mm[Hg] [facility] Heart rate 2023-09-18 21:43:00 86 /min [facility] Body temperature 2023-09-18 21:43:00 36.78 [place] [facility] Respiratory rate 2023-09-18 21:43:00 18 /min [facility] Body height 2023-09-18 21:43:00 165.1 cm [facility] Body weight 2023-09-18 21:43:00 102.241 kg [facility] BMI 2023-09-18 21:43:00 37.51 kg/m2 [facility] Oxygen saturation in Arterial blood by Pulse oximetry 2023-09-18 21:43:00 100 /min [facility] Systolic blood pressure 2023-09-16 09:30:00 118 mm[Hg] [facility] Diastolic blood pressure 2023-09-16 09:30:00 70 mm[Hg] [facility] Heart rate 2023-09-16 09:30:00 93 /min [facility] Body temperature 2023-09-16 09:30:00 36.83 [place] [facility] Oxygen saturation in Arterial blood by Pulse oximetry 2023-09-16 09:30:00 100 /min [facility] Respiratory rate 2023-09-16 07:45:00 17 /min [facility] Systolic blood pressure 2023-09-11 22:18:00 125 mm[Hg] [facility] Diastolic blood pressure 2023-09-11 22:18:00 73 mm[Hg] [facility] Heart rate 2023-09-11 22:18:00 86 /min [facility] Body temperature 2023-09-11 22:18:00 37.28 [place] [facility] Respiratory rate 2023-09-11 22:18:00 16 /min [facility] Body weight 2023-09-11 22:18:00 98.612 kg [facility] BMI 2023-09-11 22:18:00 36.18 kg/m2 [facility] Oxygen saturation in Arterial blood by Pulse oximetry 2023-09-11 22:18:00 100 /min [facility] Systolic blood pressure 2023-09-08 03:30:00 125 mm[Hg] [facility] Diastolic blood pressure 2023-09-08 03:30:00 65 mm[Hg] [facility] Heart rate 2023-09-08 03:30:00 92 /min [facility] Oxygen saturation in Arterial blood by Pulse oximetry 2023-09-08 03:30:00 100 /min [facility] Body temperature 2023-09-08 02:40:00 36.61 [place] [facility] Respiratory rate 2023-09-08 02:40:00 17 /min [facility] Systolic blood pressure 2023-09-03 22:00:00 112 mm[Hg] [facility] Diastolic blood pressure 2023-09-03 22:00:00 70 mm[Hg] [facility] Heart rate 2023-09-03 22:00:00 109 /min [facility] Oxygen saturation in Arterial blood by Pulse oximetry 2023-09-03 22:00:00 100 /min [facility] Body temperature 2023-09-03 21:37:00 36.78 [place] [facility] Respiratory rate 2023-09-03 21:37:00 16 /min [facility] Body height 2023-09-03 21:13:00 165.1 cm [facility] Body weight 2023-09-03 21:13:00 96.798 kg [facility] BMI 2023-09-03 21:13:00 35.51 kg/m2 [facility] Systolic blood pressure 2023-09-02 20:21:00 113 mm[Hg] [facility] Diastolic blood pressure 2023-09-02 20:21:00 67 mm[Hg] [facility] Heart rate 2023-09-02 20:21:00 93 /min [facility] Body temperature 2023-09-02 20:21:00 36.83 [place] [facility] Respiratory rate 2023-09-02 20:21:00 16 /min [facility] Body height 2023-09-02 20:21:00 165.1 cm [facility] Body weight 2023-09-02 20:21:00 95.255 kg [facility] BMI 2023-09-02 20:21:00 34.95 kg/m2 [facility] Oxygen saturation in Arterial blood by Pulse oximetry 2023-09-02 20:21:00 97 /min [facility] Systolic blood pressure 2023-08-28 17:08:00 108 mm[Hg] [facility] Diastolic blood pressure 2023-08-28 17:08:00 69 mm[Hg] [facility] Heart rate 2023-08-28 17:08:00 90 /min [facility] Body temperature 2023-08-28 17:08:00 36.5 [place] [facility] Body height 2023-08-28 17:08:00 165.1 cm [facility] Body weight 2023-08-28 17:08:00 94.439 kg [facility] BMI 2023-08-28 17:08:00 34.65 kg/m2 [facility] Heart rate 2023-08-22 18:00:00 84 /min [facility] Oxygen saturation in Arterial blood by Pulse oximetry 2023-08-22 18:00:00 99 /min [facility] Systolic blood pressure 2023-08-22 17:00:00 123 mm[Hg] [facility] Diastolic blood pressure 2023-08-22 17:00:00 63 mm[Hg] [facility] Body temperature 2023-08-22 17:00:00 36.06 [place] [facility] Respiratory rate 2023-08-22 17:00:00 16 /min [facility] Body weight 2023-08-20 21:50:00 99.542 kg [facility] BMI 2023-08-20 21:50:00 36.52 kg/m2 [facility] Body height 2023-08-20 21:01:00 165.1 cm [facility] Systolic blood pressure 2023-08-04 16:25:00 108 mm[Hg] [facility] Diastolic blood pressure 2023-08-04 16:25:00 64 mm[Hg] [facility] Heart rate 2023-08-04 16:25:00 87 /min [facility] Body temperature 2023-08-04 16:25:00 36.56 [place] Respiratory rate 2023-08-04 16:25:00 18 /min [facility] Body height 2023-08-04 16:25:00 165.1 cm [facility] Body weight 2023-08-04 16:25:00 94.802 kg [facility] BMI 2023-08-04 16:25:00 34.78 kg/m2 [facility] Oxygen saturation in Arterial blood by Pulse oximetry 2023-08-04 16:25:00 99 /min [facility] Heart rate 2023-07-29 09:45:00 92 /min [facility] Oxygen saturation in Arterial blood by Pulse oximetry 2023-07-29 09:45:00 100 /min [facility] Body height 2023-07-29 09:38:00 165.1 cm [facility] Body weight 2023-07-29 09:38:00 97.614 kg [facility] BMI 2023-07-29 09:38:00 35.81 kg/m2 [facility] Systolic blood pressure 2023-07-29 09:30:00 119 mm[Hg] [facility] Diastolic blood pressure 2023-07-29 09:30:00 64 mm[Hg] [facility] Body temperature 2023-07-29 09:30:00 36.67 [facility] Heart rate 2023-06-14 20:00:00 63 /min [facility] Oxygen saturation in Arterial blood by Pulse oximetry 2023-06-14 20:00:00 100 /min [facility] Systolic blood pressure 2023-06-14 18:02:00 112 mm[Hg] [facility] Diastolic blood pressure 2023-06-14 18:02:00 58 mm[Hg] [facility] Body temperature 2023-06-14 18:02:00 36.89 [place] Respiratory rate 2023-06-14 18:02:00 16 /min [facility] Body height 2023-06-14 17:49:00 165.1 cm [facility] Body weight 2023-06-14 17:49:00 93.35 kg [facility] BMI 2023-06-14 17:49:00 34.25 kg/m2 [facility] Systolic blood pressure 2023-05-03 22:46:00 117 mm[Hg] [facility] Diastolic blood pressure 2023-05-03 22:46:00 70 mm[Hg] [facility] Heart rate 2023-05-03 22:46:00 94 /min [facility] Body temperature 2023-05-03 22:46:00 36.67 [place] [facility] Respiratory rate 2023-05-03 22:46:00 18 /min [facility] Oxygen saturation in Arterial blood by Pulse oximetry 2023-05-03 22:46:00 99 /min [facility] Heart rate 2023-04-18 21:00:00 77 /min [facility] Oxygen saturation in Arterial blood by Pulse oximetry 2023-04-18 21:00:00 100 /min [facility] Systolic blood pressure 2023-04-18 20:00:00 138 mm[Hg] [facility] Diastolic blood pressure 2023-04-18 20:00:00 75 mm[Hg] [facility] Body temperature 2023-04-18 17:42:00 37.33 [place] Respiratory rate 2023-04-18 17:42:00 16 /min [facility] Body height 2023-04-18 17:42:00 165.1 cm [facility] Body weight 2023-04-18 17:42:00 92.987 kg [facility] BMI 2023-04-18 17:42:00 34.11 kg/m2 [facility] Systolic blood pressure 2023-04-02 13:43:00 122 mm[Hg] [facility] Diastolic blood pressure 2023-04-02 13:43:00 62 mm[Hg] [facility] Heart rate 2023-04-02 13:43:00 98 /min [facility] Body temperature 2023-04-02 13:43:00 36.61 [place] [facility] Respiratory rate 2023-04-02 13:43:00 18 /min [facility] Body height 2023-04-02 13:43:00 165.1 cm [facility] Body weight 2023-04-02 13:43:00 94.575 kg [facility] BMI 2023-04-02 13:43:00 34.70 kg/m2 [facility] Systolic blood pressure 2023-03-11 18:08:00 119 mm[Hg] [facility] Diastolic blood pressure 2023-03-11 18:08:00 68 mm[Hg] [facility] Heart rate 2023-03-11 18:08:00 87 /min [facility] Body temperature 2023-03-11 18:08:00 36.78 [place] [facility] Respiratory rate 2023-03-11 18:08:00 18 /min [facility] Body height 2023-03-11 18:08:00 165.1 cm [facility] Body weight 2023-03-11 18:08:00 93.044 kg [facility] BMI 2023-03-11 18:08:00 34.13 kg/m2 [facility] Systolic blood pressure 2023-02-11 18:05:00 112 mm[Hg] [place] [facility] Diastolic blood pressure 2023-02-11 18:05:00 64 mm[Hg] [facility] Heart rate 2023-02-11 18:05:00 73 /min [facility] Body temperature 2023-02-11 18:05:00 36.78 [place] [facility] Respiratory rate 2023-02-11 18:05:00 18 /min [facility] Body height 2023-02-11 18:05:00 165.1 cm [facility] Body weight 2023-02-11 18:05:00 88.508 kg [facility] BMI 2023-02-11 18:05:00 32.47 kg/m2 [facility] Systolic blood pressure 2022-01-17 03:00:00 119 mm[Hg] [facility] Diastolic blood pressure 2022-01-17 03:00:00 62 mm[Hg] [facility] Heart rate 2022-01-17 03:00:00 68 /min [facility] Respiratory rate 2022-01-17 03:00:00 16 /min [facility] Oxygen saturation in Arterial blood by Pulse oximetry 2022-01-17 03:00:00 100 /min [facility] Body temperature 2022-01-17 02:03:00 37.28 [facility] Body height 2022-01-17 02:03:00 165.1 cm [facility] Body weight 2022-01-17 02:03:00 90.719 kg [facility] BMI 2022-01-17 02:03:00 33.28 kg/m2 [facility] Systolic blood pressure 2019-05-27 20:39:00 107 mm[Hg] [facility] Diastolic blood pressure 2019-05-27 20:39:00 63 mm[Hg] [facility] Heart rate 2019-05-27 20:39:00 77 /min [facility] Body temperature 2019-05-27 20:39:00 36.94 [place] [facility] Respiratory rate 2019-05-27 20:39:00 18 /min [facility] Body height 2019-05-27 20:39:00 165.1 cm [facility] Body weight 2019-05-27 20:39:00 98.431 kg [facility] BMI 2019-05-27 20:39:00 36.11 kg/m2 [facility] Systolic blood pressure 2019-05-27 20:39:00 107 mm[Hg] [facility] Diastolic blood pressure 2019-05-27 20:39:00 63 mm[Hg] [facility] Heart rate 2019-05-27 20:39:00 77 /min [facility] Body temperature 2019-05-27 20:39:00 36.94 [place] [facility] Respiratory rate 2019-05-27 20:39:00 18 /min [facility] Body height 2019-05-27 20:39:00 165.1 cm [facility] Body weight 2019-05-27 20:39:00 98.431 kg [facility] BMI 2019-05-27 20:39:00 36.11 kg/m2 [facility] Systolic blood pressure 2019-05-17 21:39:00 114 mm[Hg] [place] [facility] Diastolic blood pressure 2019-05-17 21:39:00 71 mm[Hg] [facility] Heart rate 2019-05-17 21:39:00 103 /min [facility] Body temperature 2019-05-17 21:39:00 37.11 [place] [facility] Respiratory rate 2019-05-17 21:39:00 18 /min [facility] Body height 2019-05-17 21:39:00 165.1 cm [facility] Body weight 2019-05-17 21:39:00 100.154 kg [facility] BMI 2019-05-17 21:39:00 36.74 kg/m2 [facility] Systolic blood pressure 2019-05-17 21:39:00 114 mm[Hg] [facility] Diastolic blood pressure 2019-05-17 21:39:00 71 mm[Hg] [facility] Heart rate 2019-05-17 21:39:00 103 /min [facility] Body temperature 2019-05-17 21:39:00 37.11 [place] [facility] Respiratory rate 2019-05-17 21:39:00 18 /min [facility] Body height 2019-05-17 21:39:00 165.1 cm [facility] Body weight 2019-05-17 21:39:00 100.154 kg [facility] BMI 2019-05-17 21:39:00 36.74 kg/m2 [facility] Systolic blood pressure 2019-05-04 18:09:00 135 mm[Hg] [facility] Diastolic blood pressure 2019-05-04 18:09:00 68 mm[Hg] [facility] Heart rate 2019-05-04 18:09:00 96 /min [facility] Body temperature 2019-05-04 18:09:00 36.78 [place] [facility] Respiratory rate 2019-05-04 18:09:00 22 /min [facility] Oxygen saturation in Arterial blood by Pulse oximetry 2019-05-04 18:09:00 100 /min [facility] Systolic blood pressure 2019-04-29 21:00:00 127 mm[Hg] [facility] Diastolic blood pressure 2019-04-29 21:00:00 68 mm[Hg] [facility] Heart rate 2019-04-29 21:00:00 87 /min [facility] Body temperature 2019-04-29 21:00:00 36.39 [place] [facility] Respiratory rate 2019-04-29 21:00:00 20 /min [facility] Body height 2019-04-29 21:00:00 165.1 cm [facility] Body weight 2019-04-29 21:00:00 98.431 kg [facility] BMI 2019-04-29 21:00:00 36.11 kg/m2 [facility] Procedures Procedure Date / Time Performed Performing Clinician Source CBC WITH DIFF 2023-09-27 00:33:00 [facility] CENTRAL NEURAXIAL BLOCK 2023-09-25 09:00:00 Xenia Venegas [facility] URINE DRUG (IMMUNOASSAY) - COMPREHENSIVE DRUG SCREEN 2023-09-25 08:17:00 [facility] CBC WITH DIFF 2023-09-25 08:05:00 [facility] HEPATITIS B SURFACE ANTIGEN 2023-09-25 08:05:00 [facility] HB ABO GROUPING 2023-09-25 08:05:00 [facility] RHO (D) IMMUNE GLOBULIN 2023-09-25 08:05:00 [facility] ADC OR BRIDGER ONLY - RPR 2023-09-25 08:05:00 [facility] HIV 1/2 AG-AB WITH REFLEX 2023-09-25 08:05:00 [facility] URINE DRUG (IMMUNOASSAY) - COMPREHENSIVE DRUG SCREEN 2023-09-18 22:29:00 Anthony Kory Giordano [facility] POCT URINALYSIS W/O SPECIFIC GRAVITY 2023-09-18 00:00:00 Anthony Kory Giordano [facility] ASSIGNMENT OF BENEFITS 2023-09-16 10:25:05 Docto r Unassigned, [place] [facility] CONSENT/REFUSAL FOR DIAGNOSIS AND TREATMENT 2023-09-16 10:23:26 Doctor Unassigned, [place] [facility] CBC WITH DIFF 2023-09-16 09:30:00 Jordan Wilkinson [facility] COMP. METABOLIC PANEL (57682) 2023-09-16 08:49:00 Ariela Wilkinson [facility] >14 WEEKS US LIMITED 2023-09-11 22:52:27 Kory Cruz [facility] POCT URINALYSIS W/O SPECIFIC GRAVITY 2023-09-11 00:00:00 Kory Cruz [facility] ADC ONLY - FERN TEST 2023-09-08 02:41:00 Mary Avina [facility] POCT URINALYSIS W/O SPECIFIC GRAVITY 2023-08-28 00:00:00 Kory Cruz [facility] SECOND AND THIRD TRIMESTER ULTRASOUND 2023-08-22 19:52:00 Krystal Low [facility] POCT GLUCOSE (AUTOMATED) 2023-08-22 01:43:00 Eloy Chavez [facility] TRANSTHORACIC ECHO (TTE) COMPLETE 2023-08-21 14:54[facility] RHYTHM STRIP 2023-08-21 14:04:01 Reynaldo Brian [facility] THYROID STIMULATING HORMONE 2023-08-21 13:21:00 Mayra Welch [facility] BASIC METABOLIC PANEL (NA, K, CL, CO2, GLUCOSE, BUN, CREATININE, CA) 2023-08-21 13:21:00 Mayra Welch [facility] GLYCOSYLATED HEMOGLOBIN (A1C) 2023-08-21 13:21:00 [facility] 2023-08-21 13:21:00 [facility] ANTIBODY SCREEN 2023-08-21 13:21:00 [facility] HEPATITIS B SURFACE ANTIGEN 2023-08-21 13:21:00 Slava [facility] HB ABO GROUPING 2023-08-21 13:21:00 Tito Pedersen [facility] HIV 1/2 AG-AB WITH REFLEX 2023-08-21 13:21:00 Slava [facility] SYPHILIS IGG/IGM 2023-08-21 13:21:00 Slava [facility] PROTHROMBIN TIME / INR 2023-08-21 01:40:00 Kory Cruz [facility] ACTIVATED PARTIAL THRMPLAS BLANCA 2023-08-21 01:40:00 Kory Cruz [facility] URINE CULTURE 2023-08-21 01:31:00 Kory Cruz [facility] URINALYSIS 2023-08-21 01:16:00 Kory Cruz [facility] ADC CLC OR LCC ONLY - WET PREP 2023-08-21 01:16:00 Kory Cruz [facility] GROUP B STREPTOCOCCUS BY PCR 2023-08-21 01:16:00 Kory Cruz [facility] CBC WITH DIFF 2023-08-21 01:15:00 Kory Cruz [facility] URINE DRUG (IMMUNOASSAY) - COMPREHENSIVE DRUG SCREEN 2023-08-21 01:14:00 Kory Cruz [facility] HB ABO GROUPING 2023-08-21 01:14:00 Kory Cruz [facility] GC & CHLAMYDIA AMPLIFIED ASSAY 2023-08-21 01:13:00 Kory Cruz [facility] US BIOPHYSICAL PROFILE 2023-08-20 23:58:11 Kory Cruz [facility] US PELVIS > 14 WEEKS 2023-08-20 23:57:55 Kory Cruz [facility] XR SHOULDER 2+ VW LEFT 2023-08-20 21:31:00 Selwyn Quintero navinalok [facility] HOSPITAL ADMISSION 2023-08-20 06:01:00 Doctor Un assigned, [place] [facility] TDAP VACCINE, >11 YRS, IM 2023-08-04 19:02:35 Kory Cruz [facility] FLU VACC (), 6 MO-64 YRS, .5ML, IM, QUAD (FLUCELVAX) 2023-08-04 19:02:35 Kory Cruz [facility] POCT URINALYSIS W/O SPECIFIC GRAVITY 2023-08-04 00:00:00 Kory Cruz [facility] URINE DRUG (IMMUNOASSAY) - COMPREHENSIVE DRUG SCREEN 2023-07-29 09:49:00 [facility] URINALYSIS 2023-07-29 09:49:00 Irlanda Wilkinsonsol [facility] US PELVIS > 14 WEEKS 2023-06-14 20:12:00 Kory Cruz [facility] URINALYSIS 2023-06-14 18:55:00 Kory Cruz [facility] ADC ONLY - FERN TEST 2023-06-14 18:55:00 Kory Cruz [facility] ASSIGNMENT OF BENEFITS 2023-06-14 17:37:47 Docto r Unassigned, [place] [facility] CONSENT/REFUSAL FOR DIAGNOSIS AND TREATMENT 2023-06-14 17:36:34 Doctor Unassigned, [place] [facility] SECOND AND THIRD TRIMESTER ULTRASOUND 2023-05-28 21:05:00 Krystal Low [facility] SECOND AND THIRD TRIMESTER ULTRASOUND 2023-05-28 20:25:00 Krystal Low [facility] URINE DRUG (IMMUNOASSAY) - COMPREHENSIVE DRUG SCREEN 2023-04-18 18:48:00 Jaja Ariela [facility] ADC CLC OR LCC ONLY - WET PREP 2023-04-18 18:48:00 [facility] CONSENT/REFUSAL FOR DIAGNOSIS AND TREATMENT 2023-04-18 16:42:47 Doctor Unassigned, [place] [facility] POCT URINALYSIS 2023-04-02 13:44:00 Krystal Low [facility] EXTERNAL PROVIDER RECORDS 2023-03-21 05:01:00 Doctor Unassigned, [place] [facility] POCT URINALYSIS 2023-03-11 18:00:00 Krystal Low [facility] AUTHORIZATION FOR RELEASE OF PHI 2023-03-11 05:01:00 Doctor Unassigned, [place] [facility] POCT URINALYSIS W/O SPECIFIC GRAVITY 2023-02-11 18:03:00 Krystal Low [facility] POCT TEST 2023-02-11 18:02:00 Rhona Low [facility] REPORT OF 2023-02-11 05:01:00 Doctor U nassignromy, [place] [facility] LIPASE 2022-01-17 03:09:00 Yvonne Siddiqi [facility] COMP. METABOLIC PANEL ([id number]) 2022-01-17 03:09:00 Yvonne Siddiqi [facility] CBC WITH DIFF 2022-01-17 03:09:00 Yvonne Siddiqi [facility] POCT TEST 2022-01-17 02:14:00 Lakhwinder Weiner [facility] URINALYSIS 2022-01-17 02:10:00 Abraham Weiner [facility] NOTICE OF PRIVACY PRACTICES 2022-01-17 01:36:28 Doctor Unassigned, [place] [facility] CONSENT/REFUSAL FOR DIAGNOSIS AND TREATMENT 2022-01-17 01:36:18 Doctor Unassigned, [place] [facility] TDAP (ADACEL) IMMUNIZATION 2019-05-27 20:41:37 Josy Chaudhary [facility] US ABDOMEN LIMITED 2019-05-17 22:45:16 Zaid Josy [facility] ASSIGNMENT OF BENEFITS 2019-05-17 22:12:10 Docto r Unassigned, [place] [facility] URINALYSIS 2019-05-04 18:55:00 Kory Cruz [facility] ADC CLC OR LCC ONLY - WET PREP 2019-05-04 18:55:00 Kory Cruz [facility] ADC ONLY - FERN TEST 2019-05-04 18:54:00 Kory Cruz [facility] CONSENT/REFUSAL FOR DIAGNOSIS AND TREATMENT 2019-05-04 17:47:16 Doctor Unassigned, [place] [facility] Encounters Start Date/Time End Date/Time Encounter Type Admission Type Attending [facility] Care Facility Care Department Encounter ID Source 2023-09-16 06:18:56 Outpatient X [facility] [id number] [facility] 2023-07-29 06:14:02 Outpatient X [facility] [id number] [facility] 2023-04-18 17:24:48 Outpatient X [facility] [id number] [facility] 2022-08-02 05:16:57 Emergency HFD [facility] [id number] [facility] ent 2021-07-08 14:21:14 Outpatient [facility] [id number] [facility] 2023-11-28 00:00:00 2023-11-28 00:00:00 Patient Secure Msg Doctor Unassigned, [place] [facility] 1.2.840.114 350.1.13.10 4.2.7.2.686 [id number] 134 [id number] [facility] 2023-11-21 00:00:00 2023-11-21 00:00:00 Telephone Kory Cruz [facility] 1.2.840.114 350.1.13.10 4.2.7.2.686 [id number] 134 [id number] [facility] 2023-11-15 00:00:00 2023-11-15 00:00:00 Telephone Kory Cruz [facility] 1.2.840.114 350.1.13.10 4.2.7.2.686 [id number] 134 [id number] [facility] 2023-10-10 10:30:00 2023-10-10 12:02:47 Outpatient R KORY CRUZ [facility] [id number] [facility] 2023-10-10 10:30:00 2023-10-10 12:02:47 Routine Visit Kory Cruz [facility] 1.2.840.114 350.1.13.10 4.2.7.2.686 [id number] 134 [id number] [facility] 2023-10-10 00:00:00 2023-10-10 00:00:00 Patient Secure Msg Doctor Unassigned, [place] [facility] 1.2.840.114 350.1.13.10 4.2.7.2.686 [id number] 134 [id number] [facility] 2023-10-09 00:00:00 2023-10-09 00:00:00 Telephone [facility] 1.2.840.114 350.1.13.10 4.2.7.2.686 [id number] [facility] 2023-10-09 00:00:00 2023-10-09 00:00:00 Patient Secure Msg Doctor Unassigned, [place] [facility] 1.2.840.114 350.1.13.10 4.2.7.2.686 [id number] 134 [id number] [facility] 2023-09-25 01:05:00 2023-09-27 12:55:00 Inpatient X KORY CRUZ [facility] [id number] [facility] 2023-09-25 01:05:00 2023-09-27 12:55:00 Hospital Encounter Kroy Cruz [facility] 1.2.840.114 350.1.13.10 4.2.7.2.686 [id number] [facility] 2023-09-25 16:00:00 2023-09-25 16:00:00 Outpatient R KORY CRUZ [facility] [id number] [facility] 2023-09-25 03:00:00 2023-09-25 08:52:00 Anesthesia Event Xenia Angel Michelle [facility] 1..840.114 350.1.13.10 4.2.7.2.686 [id number] [facility] 2023-09-24 00:00:00 2023-09-24 00:00:00 Telephone Kory Cruz [facility] 1..840.114 350.1.13.10 4.2.7.2.686 [id number] 134 [id number] [facility] 2023-09-19 00:10:00 2023-09-19 00:10:00 Outpatient P CANO-EVER S, ARIELA CANO-EVER S, ARIELA [facility] [id number] [facility] 2023-09-18 15:15:00 2023-09-18 16:21:53 Outpatient R KORY CRUZ [facility] [id number] [facility] 2023-09-18 15:15:00 2023-09-18 16:21:53 Routine Visit Kory Cruz [facility] 1..840.114 350.1.13.10 4.2.7.2.686 [id number] 134 [id number] [facility] 2023-09-16 01:28:00 2023-09-16 03:45:00 Outpatient X CANO-EVER S, ARIELA CANO-EVER S, ARIELA [facility] [id number] [facility] 2023-09-16 01:28:00 2023-09-16 03:45:00 Emergency Cano-Ever s, Ariela [facility] 1.2.840.114 350.1.13.10 4.2.7.2.686 [id number] [facility] 2023-09-11 16:15:00 2023-09-11 16:50:18 Outpatient R KORY CRUZ [facility] [id number] [facility] 2023-09-11 16:15:00 2023-09-11 16:50:18 Routine Visit Kory Cruz [facility] 1.2.840.114 350.1.13.10 4.2.7.2.686 [id number] 134 [id number] [facility] 2023-09-11 14:45:00 2023-09-11 15:00:00 Certified Driver Examiner Visit 2, Adc Lab Kory Cruz [facility] 1.2.840.114 350.1.13.10 4.2.7.2.686 [id number] [facility] 2023-09-11 11:00:00 2023-09-11 11:00:00 Outpatient R ANTHONY KORY [facility] [id number] [facility] 2023-09-09 16:00:00 2023-09-09 16:00:00 Outpatient R KORY CRUZ [facility] [id number] [facility] 2023-09-08 00:00:00 2023-09-08 00:00:00 Telephone Kory Cruz [facility] 1.2.840.114 350.1.13.10 4.2.7.2.686 [id number] [facility] 2023-09-07 20:22:00 2023-09-07 22:06:00 Outpatient X MARY AVINA [facility] [id number] [facility] 2023-09-07 20:22:00 2023-09-07 22:06:00 Emergency AdMary bartholomew [facility] 1.2.840.114 350.1.13.10 4.2.7.2.686 [id number] [facility] 2023-09-03 15:18:00 2023-09-03 17:33:00 Outpatient X KORY CRUZ [facility] [id number] [facility] 2023-09-03 15:18:00 2023-09-03 17:33:00 Emergency Kory Cruz [facility] 1.2.840.114 350.1.13.10 4.2.7.2.686 [id number] [id number] [facility] 2023-09-02 14:23:00 2023-09-02 15:18:00 Outpatient P FABRICE [facility], [facility] [id number] [facility] 2023-09-02 14:23:00 2023-09-02 15:18:00 Hospital Encounter Mary Avina [facility] 1.2.840.114 350.1.13.10 4.2.7.2.686 [id number] [id number] [facility] 2023-08-28 10:45:00 2023-08-28 11:28:38 Outpatient R KORY CRUZ [facility] [id number] [facility] 2023-08-28 10:45:00 2023-08-28 11:28:38 Routine Visit Kory Cruz [facility] 1.2.840.114 350.1.13.10 4.2.7.2.686 [id number] [facility] 2023-08-20 15:22:00 2023-08-22 16:30:00 Outpatient X DEBORAHELOY [facility] [id number] [facility] 2023-08-20 15:22:00 2023-08-22 16:30:00 Emergency Nacho Quintero Vien Cam Omere, Chasey Ikuvbogie Chavez, Eloy Ike [facility] 1..114 350.1.13.10 4.2.7.2.686 [id number] [facility] 2023-08-22 13:00:00 2023-08-22 13:54:45 Certified Driver Examiner Visit 2, [facility] Chungasif [facility] 1..114 350.1.13.10 4.2.7.2.686 [id number] [facility] 2023-08-21 20:00:01 2023-08-21 20:00:01 Anesthesia Event StanleyAleidaXeniarenu Mac [facility] 1.114 350.1.13.10 4.2.7.2.686 [id number] [id number] [facility] 2023-08-18 14:15:00 2023-08-18 14:15:00 Outpatient R KORY CRUZ [facility] [id number] [facility] 2023-08-08 13:45:00 2023-08-08 13:45:00 Outpatient R [facility] [id number] [facility] 2023-08-06 00:00:00 2023-08-06 00:00:00 Patient Secure Msg Doctor Unassigned, [place] [facility] 1.114 350.1.13.10 4.2.7.2.686 [id number] [facility] 2023-08-04 10:00:00 2023-08-04 11:00:40 Outpatient R KORY CRUZ [facility] [id number] [facility] 2023-08-04 10:00:00 2023-08-04 11:00:40 [facility] 1..114 350.1.13.10 4.2.7.2.686 [id number] [facility] 2023-07-29 03:10:00 2023-07-29 06:05:00 Outpatient X JEROME-EVER S, ARIELA JEROME-EVER S, ARIELA [facility] [id number] [facility] 2023-07-29 03:10:00 2023-07-29 06:05:00 Emergency Irlanda Oswaldsol [facility] 1.2.840.114 350.1.13.10 4.2.7.2.686 [id number] [id number] [facility] 2023-07-27 00:00:00 2023-07-27 00:00:00 Nurse Triage NurseSuyapa [facility] 1.0.114 350.1.13.10 4.2.7.2.686 [id number] [facility] 2023-06-21 00:00:00 2023-06-21 00:00:00 Krystal Ortega [facility] ELECTRIC METER TESTER [facility] MATERNAL & CHILD HEALTH [facility] 1.20.114 350.1.13.10 4.2.7.2.686 [id number] [facility] 2023-06-14 12:51:00 2023-06-14 15:30:00 Outpatient X KORY CRUZ [facility] [id number] [facility] 2023-06-14 12:51:00 2023-06-14 15:30:00 Emergency Kory Cruz [facility] 1.2840.114 350.1.13.10 4.2.7.2.686 [id number] [id number] [facility] 2023-06-14 00:00:00 2023-06-14 00:00:00 Nurse Triage Heidi Christianson [facility] 1.20.114 350.1.13.10 4.2.7.2.686 [id number] [facility] 2023-06-14 00:00:00 2023-06-14 00:00:00 Orders Only Doctor Unassigned, [place] [facility] 1.0.114 350.1.13.10 4.2.7.2.686 [id number] [facility] 2023-06-03 00:00:00 2023-06-03 00:00:00 Telephone Huy Mendoza [facility] ELECTRIC METER TESTER [facility] & CHILD [facility] 1.84.114 350.1.13.10 4.2.7.2.686 [id number] [facility] 2023-06-02 15:30:00 2023-06-02 15:30:00 Outpatient R HUY MENDOZA [facility] [id number] [facility] 2023-05-30 00:00:00 2023-05-30 00:00:00 Case Management Krystal Low [facility] ELECTRIC METER TESTER [facility] CHILD [facility] 1..114 350.1.13.10 4.2.7.2.686 [id number] [facility] 2023-05-28 14:00:00 2023-05-28 15:19:04 Outpatient P SHELLEY SANCHEZ [facility] [id number] [facility] 2023-05-28 14:00:00 2023-05-28 15:19:04 Certified Driver Examiner Visit Ultrasound, Ang-Mfm Shelley Sanchez [facility] ELECTRIC METER TESTER [facility] & CHILD [facility] 1.84.114 350.1.13.10 4.2.7.2.686 [id number] [facility] 2023-05-21 00:00:00 2023-05-21 00:00:00 Refill Krystal Low [facility] ELECTRIC METER TESTER [facility] MATERNAL & CHILD [facility] 1.2.840.114 350.1.13.10 4.2.7.2.686 [id number] [facility] 2023-05-21 00:00:00 2023-05-21 00:00:00 Telephone Destinylobo Krystal Renu [facility] ELECTRIC METER TESTER [facility] & CHILD [facility] 1.2.840.114 350.1.13.10 4.2.7.2.686 [id number] [facility] 2023-05-20 15:30:00 2023-05-20 15:30:00 Outpatient R HUY MENDOZA [facility] [id number] [facility] 2023-05-16 09:45:00 2023-05-16 09:45:00 Outpatient R KRYSTAL LOW [facility] [id number] [facility] 2023-05-03 17:42:00 2023-05-03 18:57:00 Outpatient X CANO-EVER S, ARIELA CANO-EVER S, ARIELA [facility] [id number] [facility] 2023-05-03 17:42:00 2023-05-03 18:57:00 Emergency Cano-Ever s, Ariela [facility] 1.2.840.114 350.1.13.10 4.2.7.2.686 [id number] [id number] [facility] 2023-04-30 10:45:00 2023-04-30 10:45:00 Outpatient R KRYSTAL LOW [facility] [id number] [facility] 2023-04-18 12:18:00 2023-04-18 16:05:00 Outpatient X CANO-EVER S, ARIELA CANO-EVER S, ARIELA [facility] [id number] [facility] 2023-04-18 12:18:00 2023-04-18 16:05:00 Emergency Cano-Ever sIrlandaAriela [facility] 1.2.840.114 350.1.13.10 4.2.7.2.686 [id number] [id number] [facility] 2023-04-17 00:00:00 2023-04-17 00:00:00 Telephone Krystal Low [facility] ELECTRIC METER TESTER [facility] MATERNAL & CHILD [facility] 1.2.840.114 350.1.13.10 4.2.7.2.686 [id number] [facility] 2023-04-17 00:00:00 2023-04-17 00:00:00 Patient Secure Msg Krystal Low [facility] ELECTRIC METER TESTER [facility] & CHILD [facility] 1.2840.114 350.1.13.10 4.2.7.2.686 [id number] [facility] 2023-04-08 12:45:00 2023-04-08 12:45:00 Outpatient R KRYSTAL LOW [facility] [id number] [facility] 2023-04-07 00:00:00 2023-04-07 00:00:00 Case Management Krystal Low [facility] ELECTRIC METER TESTER [facility] & CHILD [facility] 1.2840.114 350.1.13.10 4.2.7.2.686 [id number] [facility] 2023-04-03 10:30:00 2023-04-03 10:30:00 Outpatient R KRYSTAL LOW [facility] [id number] [facility] 2023-04-03 00:00:00 2023-04-03 00:00:00 Refill Krystal Low [facility] ELECTRIC METER TESTER [facility] & CHILD [facility] 1.2.840.114 350.1.13.10 4.2.7.2.686 [id number] [facility] 2023-04-02 08:45:00 2023-04-02 09:15:48 Outpatient R KRYSTAL LOW [facility] [id number] [facility] 2023-04-02 08:45:00 2023-04-02 09:15:48 Routine Visit Krystal Low [facility] ELECTRIC METER TESTER [facility] MATERNAL & CHILD [facility] 1.2840.114 350.1.13.10 4.2.7.2.686 [id number] [facility] 2023-03-21 00:00:00 2023-03-21 00:00:00 Case Management Krystal Low [facility] ELECTRIC METER TESTER [facility] & CHILD [facility] 1.840.114 350.1.13.10 4.2.7.2.686 [id number] [facility] 2023-03-21 00:00:00 2023-03-21 00:00:00 Orders Only Doctor Unassigned, [place] [facility] .0.114 350.1.13.10 4.2.7.2.686 [id number] [id number] [facility] 2023-03-19 00:00:00 2023-03-19 00:00:00 Telephone Krystal Low [facility] ELECTRIC METER TESTER [facility] & CHILD [facility] 1.84.114 350.1.13.10 4.2.7.2.686 [id number] [facility] 2023-03-11 12:45:00 2023-03-11 13:26:33 Outpatient R KRYSTAL LOW [facility] [id number] [facility] 2023-03-11 12:45:00 2023-03-11 13:26:33 Routine Visit Krystal Low [facility] ELECTRIC METER TESTER [facility] MATERNAL & CHILD [facility] 1.840.114 350.1.13.10 4.2.7.2.686 [id number] [facility] 2023-03-11 00:00:00 2023-03-11 00:00:00 Orders Only Doctor Unassigned, [place] [facility] 1.2.840.114 350.1.13.10 4.2.7.2.686 [id number] [facility] 2023-02-18 00:00:00 2023-02-18 00:00:00 Telephone Krystal Low [facility] ELECTRIC METER TESTER [facility] & CHILD [facility] 1.2.840.114 350.1.13.10 4.2.7.2.686 [id number] [facility] 2023-02-14 00:00:00 2023-02-14 00:00:00 Case Management Krystal Low [facility] ELECTRIC METER TESTER [facility] & CHILD [facility] 1.2.840.114 350.1.13.10 4.2.7.2.686 [id number] [facility] 2023-02-14 00:00:00 2023-02-14 00:00:00 Telephone Krystal Low [facility] ELECTRIC METER TESTER [facility] & CHILD [facility] 1.2.840.114 350.1.13.10 4.2.7.2.686 [id number] [facility] 2023-02-11 13:00:00 2023-02-11 14:23:32 Initial Visit Krystal Low [facility] ELECTRIC METER TESTER [facility] & CHILD [facility] 1.2.840.114 350.1.13.10 4.2.7.2.686 [id number] [facility] 2023-02-11 12:30:00 2023-02-11 13:21:27 Outpatient R KRYSTAL LOW [facility] [id number] [facility] 2023-02-11 00:00:00 2023-02-11 00:00:00 Orders Only Doctor Unassigned, [place] [facility] 1.2840.114 350.1.13.10 4.2.7.2.686 [id number] [facility] 2023-02-10 08:30:00 2023-02-10 08:30:00 Outpatient R HUY MENDOZA [facility] [id number] [facility] 2022-08-02 04:26:00 2022-08-02 11:34:00 Emergency E LEEROY DENG [facility] [address] [facility] 2022-01-16 21:05:00 2022-01-17 00:11:00 Emergency X YVONNE SIDDIQI [facility] ERT [id number] [facility] 2022-01-16 21:05:00 2022-01-17 00:11:00 Emergency Yvonne Siddiqi [facility] 1.2840.114 350.1.13.10 4.2.7.2.686 [id number] [facility] 2021-07-25 00:00:00 2021-07-25 00:00:00 Patient Secure Msg Doctor Unassigned, [place] [facility] 1.2.840.114 350.1.13.10 4.2.7.2.686 [id number] [facility] 2021-04-19 13:15:00 2021-04-19 13:15:00 Outpatient R HUY MENDOZA [facility] [id number] [facility] 2021-02-06 00:00:00 2021-02-06 00:00:00 Case Management Jennifer Belcher 1.2.840.114 350.1.13.10 4.2.7.2.686 [id number] 2021-02-06 00:00:00 2021-02-06 00:00:00 Case Management Irlanda Belcherssrenu Wheeler [facility] 1.2.840.114 350.1.13.10 4.2.7.2.686 [id number] [facility] 2020-12-12 00:00:00 2020-12-12 00:00:00 Patient Outreach Broderick Melton [facility] 1.2.840.114 350.1.13.10 4.2.7.2.686 [id number] 2020-12-12 00:00:00 2020-12-12 00:00:00 Patient Outreach Broderick Melton [facility] 1.2.840.114 350.1.13.10 4.2.7.2.686 [id number] [facility] 2020-02-28 15:00:00 2020-02-28 15:00:00 [facility] [id number] [facility] 2019-12-18 17:30:00 2019-12-18 17:30:00 Outpatient R KRISSY GREEN [facility] [id number] [facility] 2019-11-18 14:30:00 2019-11-18 14:30:00 Outpatient Debra CHAUDHARY [facility] [id number] [facility] 2019-05-27 14:41:30 2019-05-27 15:54:53 [facility] 1.2.840.114 350.1.13.10 4.2.7.2.686 [id number] 2019-05-27 14:41:30 2019-05-27 15:54:53 Routine Visit Zaid Josy [facility] 1.2.840.114 350.1.13.10 4.2.7.2.686 [id number] [facility] 2019-05-17 17:15:00 2019-05-17 23:59:00 Hospital Encounter Josy Chaudhary [facility] 1.2.840.114 350.1.13.10 4.2.7.2.686 [id number] [facility] 2019-05-17 17:21:30 2019-05-17 17:36:30 Certified Driver Examiner Visit 1, Adc Lab Kory Cruz [facility] 1.2.840.114 350.1.13.10 4.2.7.2.686 [id number] [facility] 2019-05-17 15:55:01 2019-05-17 16:56:25 [facility] 1.2.840.114 350.1.13.10 4.2.7.2.686 [id number] 2019-05-17 15:55:01 2019-05-17 16:56:25 Office Visit Josy Chaudhary [facility] 1.2.840.114 350.1.13.10 4.2.7.2.686 [id number] [facility] 2019-05-17 00:00:00 2019-05-17 00:00:00 Orders Only Doctor Unassigned, [place] [facility] 1.2.840.114 350.1.13.10 4.2.7.2.686 [id number] [facility] 2019-05-05 00:00:00 2019-05-05 00:00:00 Telephone Josy Chaudhary [facility] 1.2.840.114 350.1.13.10 4.2.7.2.686 [id number] [facility] 2019-05-04 15:07:01 2019-05-04 15:22:01 Certified Driver Examiner Visit 1, Adc Lab Kory Cruz [facility] 1.2.840.114 350.1.13.10 4.2.7.2.686 [id number] [facility] 2019-05-04 12:48:00 2019-05-04 14:57:00 Hospital Encounter Kory Cruz [facility] 1.2.840.114 350.1.13.10 4.2.7.2.686 [id number] [facility] 2019-05-04 00:00:00 2019-05-04 00:00:00 Telephone Josy [facility]audhary [facility] 1.2.840.114 350.1.13.10 4.2.7.2.686 [id number] [facility] 2019-05-04 00:00:00 2019-05-04 00:00:00 Orders Only Doctor Unassigned, [place] [facility] 1.2.840.114 350.1.13.10 4.2.7.2.686 [id number] [facility] 2019-04-30 00:00:00 2019-04-30 00:00:00 Case Management Josy Chaudhary [facility] 1.2.840.114 350.1.13.10 4.2.7.2.686 [id number] [facility] 2019-04-29 15:40:17 2019-04-29 16:18:51 Routine Visit Kory Cruz [facility] Professio [facility] 1.2.840.114 350.1.13.10 4.2.7.2.686 [id number] [facility] Results Test Description Test Time Test Comments Results Result Co mments Source [facility] IMMUNE [id number] 16:36:33* Test Item Value Reference Range Interpretation Comme nts RHIG CANDIDATE? (test code = 5188) No- see comment Patient is not a candidate for RhIg- Patient is Rh Positive.Performed at [facility] Laboratory Services - [facility] Blood [address] [place] [id number] Free: [phone] No. [id number] [facility] CenterHepatitis B Surface [id number] 12:56:12 * Test Item Value Reference Range Interpretation Comme nts HBsAg Semi-Quantitative (fredy t code = 5195-3) 0.10 Negative [facility]/2 Ag-Ab with Kxdbcz5686-70-27 09:08:51* Test Item Value Reference Range Interpretation Comme nts HIV Semi-quantitative (test code = 93126-0) 0.18 Negative TIERRA (test code = TIERRA) Non-reactive for HIV-1 antigen and HIV-1/HIV-2 antibodies. ?No laboratory evidence of HIV infection. ?Repeat in 2-4 weeks if acute HIV infection is suspected. [facility] [id number] 09:00:00 Xenia Angel MD ? ? 09/25/2023 ?3:43 AM Central Neuraxial Block Date/Time: 09/25/2023 3:00 AM Performed by: Xenia Angel [facility]ITAL[facility]hor[facility] by: Xenia Angel MD ?Patient Location: OBEnd [...] air and catheter ?Guidance with: landmark technique}Epidural/Spinal [place] and/or Catheter: ?Epidural/Spinal Kit: BBraun ?Needle Type: Tuohy ?Needle Gauge: 17 G [...] mastisol then tegaderm and tape. No apparent complications.[facility] CenterType and Screen - ONCE [id number] 08:11:00* Test Item Value Reference Range Interpretation Comme nts ABO & RH (test code = 20) O Positive IAT (test code = 1185) Negative [facility] CenterPO[facility] Urinalysis w/o Specific [id number] 22:26:00* Test Item Value Reference Range Interpretation [...] = 3257) n/a Negative - Negati ve [facility] CenterComp. Metabolic Panel (20150)2023-09-16 10:09:50* Test Item Value Reference Range Interpretation Comme nts NA (test code = 7023508864) 135 mmol/L 135-145 K (test code = 5890023423) 3.6 mmol/L 3.5-5.0 CL (test code = 9558861772) 105 mmol/L 98-108 CO2 TOTAL (test code = 5858809835) 25 mmol/L 23-31 AGAP (test code = 1053001618) 5 2-16 BUN (test code = 8759496654) 4 mg/dL 7-23 L GLUCOSE (test code = 5849531130) 88 mg/dL 70-110 CREATININE (test code = 8080106092) 0.49 mg/dL 0.50-1.04 L TOTAL BILI (test code = 1867904073) 1.1 mg/dL 0.1-1.1 CALCIUM (test code = 9875617076) 8.6 mg/dL 8.6-10.6 T PROTEIN (test code = 5971269329) 6.7 g/dL 6.3-8.2 ALBUMIN (test code = 3085330170) 3.3 g/dL 3.5-5.0 L ALK PHOS (test code = 4975758410) 131 U/L 34-122 H ALTv (test code = 1742-6) 17 U/L 5-35 AST(SGOT) (test code = 7654206488) 25 U/L 13-40 eGFR (test code = 17606-8) 135.2 mL/min/1.73m2 CKD-EPI eGFR (2020). Assuming creatinine has been stable day-to-day for at least three months, the eGFR indicates Category G1 (>= 90 mL/min/1.73 m2) Lab Interpretation (test code = 47288-4) Abnormal [facility] with Lwct1010-27-73 09:36:47* Test Item Value Reference Range Interpretation Comme nts WBC (test code = 6690-2) 6.44 See_Comment [Automated Tk20a ge] The system which generated this result transmitted reference range: 4.30 - 11.10 10*3/?L. The reference range was not used to interpret this result as normal/abnormal. RBC (test code = 789-8) 3.72 See_Comment L [Automated messa ge] The system [...] g/dL 31.6-35.1 L RDW-SD (test code = 51951-1) 47.0 fL 39.0-49.9 RDW-CV (test code = 788-0) 17.6 % 12.0-15.5 H PLT (test code = 777-3) 184 See_Comment [Automated messa ge] The system which generated this result transmitted reference range: 166 - 358 10*3/?L. The reference range was not used to interpret this result as normal/abnormal. MPV (test code = 32149-1) 10.1 fL 9.5-12.9 NRBC/100 WBC (test code = 7857495877) 0.0 See_Comment [Automated me ssage] The system which generated this result transmitted reference range: 0.0 - 10.0 /100 WBCs. The reference range was not used to interpret this result as normal/abnormal. NRBC x10^3 (test code = 2554029367) See_Comment [Automated messa ge] The system which generated this result transmitted reference range: 10*3/?L. The reference range was not used to interpret this result as normal/abnormal. GRAN MAT (NEUT) % (test code = 770-8) 66.7 % IMM GRAN % (test code = 2872621683) 0.80 % LYMPH % (test code = 736-9) 24.1 % MONO % (test code = 5905-5) 6.5 % EOS % (test code = 713-8) 1.6 % BASO % (test code = 706-2) 0.3 % GRAN MAT x10^3(ANC) (test code = 4042872450) 4.30 10*3/uL 1.88-7.09 IMM GRAN x10^3 (test code = 2703275314) 0.05 10*3/uL 0.00-0.06 LYMPH x10^3 (test code = 731-0) 1.55 10*3/uL 1.32-3.29 MONO x10^3 (test code = 742-7) 0.42 10*3/uL 0.33-0.92 EOS x10^3 (test code = 711-2) 0.10 10*3/uL 0.03-0.39 BASO x10^3 (test code = 704-7) 0.01-0.07 Lab Interpretation (test code = 50430-3) Abnormal [facility] Urinalysis w/o Specific [id number] 22:18:00* Test Item Value Reference Range Interpretation [...] = 3257) n/a Negative - [facility] SPECIFIC [id number] 17:06:00* Test Item Value Reference Range Interpretation [...] = 3257) n/a Negative - [facility] ve [facility] [id number] 15:22:41* Test Item Value Reference Range Interpretation Comme [facility] VZV IgG antibody (test code = 96561-5) Negative Negative TIERRA (test code = TIERRA) Positive - Indicat es the patient was exposed to VZV through infection or vaccination.Negative - Indicates the patient could be susceptible to VZV infection.Equivocal - A second specimen should be sent for testing. [facility] S[facility] [id number] 15:22:41* Test Item Value Reference Range Interpretation Comme [facility] Rubella screen IgG (test code = 5089128338) Positive Negative TIERRA (test code = TIERRA) Positive - Indicat es the patient was exposed to Rubella through infection or vaccination.Negative - Indicates the patient could be susceptible to Rubella infection.Equivocal - A second specimen should be sent. [facility] IGG/[id number] 15:21:40* Test Item Value Reference Range Interpretation Comme [facility] Syphilis IgG/IgM (test code = 94766-3) Non-reactive Non-reactive TIERRA (test code = TIERRA) Non-reactive - No serologic evidence of T. pallidum infection. Cannot exclude incubating or early syphilis. Submit a second specimen in 2-4 weeks if syphilis is clinically suspected. Equivocal - Further testing to follow. Reactive - Further testing to follow. Lab Interpretation (test code = 43431-0) [facility]-22 01:48:28* Test Item Value Reference Range Interpretation Comme [facility] POCT GLU (test code = 7246438788) 133 mg/dL 70-110 H Lab Interpretation (test cod e = 47043-1) [facility]2023-08-21 20:30:27* Test Item Value Reference Range Interpretation Comme [facility] Height (test code = 1792104578) 65 in Weight (test code = 6403815586) 219 lbs Systolic BP (test code = 8489867351) 106 mmHg Diastolic BP (test code = 2101864924) 60 mmHg Heart Rate (test code = 6624507030) 90 bpm LVOT stroke volume (test code = 9672863892) 55.30 cm3 EF(Teich) (test code = 6743881372) 74.90 % LVIDD (test code = 1427030829) 5.20 cm LVIDS (test code = 6064881756) 2.90 cm Left Ventricular End Systolic Volume by Teichholz Method (test code = 1518715) 32.2 mL Left Ventricular End Diastolic Volume by Teichholz Method (test code = 7784938) 128.3 mL IVS (test code = 0018909260) 0.66 cm LVPWD (test code = 1694603499) 1.10 cm LVOT diameter (test code = 3202237152) 1.86 cm LVOT area (test code = 5726400190) 2.70 cm2 FS (test code = 0312826970) 44 % MV Peak E Lakshmi (test code = 8583428046) 97.3 cm/s MV Peak A Lakshmi (test code = 1813628644) 80.6 cm/s E/A ratio (test code = 8602174224) 1.21 ratio E wave decelartion time (test code = 8438670897) 0.19 s MV E/e' septal (test code = 8117448191) 11.6 cm/s LA Volume Index (BP) (test code = 5653392543) 37.1 mL/m2 LA volume (BP) (test code = 0736047874) 76.3 mL LVOT peak lakshmi (test code = 9155343515) 108.4 cm/s LVOT mn grad (test code = 9998389744) 2.5 mmHg BSA (test code = 5987803909) 2.06 m2 LA size (test code = 8354249196) 4.0 cm LAV(MOD-sp2) (test code = 7724120102) 54.20 mL LAV(MOD-sp4) (test code = 1374449305) 82.70 mL Tapse (test code = 0678345770) 2.35 cm AV LVOT peak gradient (test code = 7134791167) 4.7 mmHg LVOT peak VTI (test code = 6420127500) 20.3 cm LV V1 mean (test code = 5100241530) 74.60 cm/s MV Prop V (test code = 6263978349) 70.10 cm/s Ao root diam (test code = 8331960456) 3.60 cm Aortic root (test code = 7733749525) 3.6 cm Ao root annulus (test code = 1507286123) 3.6 cm PW (test code = 1863328851) 1.10 cm 0.6-1.1 EF - 2D (test code = 45684177) 74.90 % Interventricular Septum Diastolic Thickness by 2D (test code = 3571394) 0.66 cm Aortic valve mean velocity (test code = 1384097082) 123.5 cm/s Ao peak lakshmi (test code = 1001232886) 177.8 cm/s Ao VTI (test code = 3412934422) 34.6 cm AV area by cont VTI (test code = 2582099274) 1.6 cm2 AV area peak lakshmi (test code = 6447200569) 1.7 cm2 Ao max PG (test code = 8319262565) 12.60 mm[Hg] AV peak gradient (test code = 2397107429) 12.6 mmHg AV valve area (test code = 4668146441) 1.60 cm2 AV mean gradient (test code = 1972076021) 6.5 mmHg MV mean gradient (test code = 8946150438) 1.45 mmHg MV peak gradient (test code = 2204087892) 3.0 mmHg MV pk lakshmi (test code = 6890367537) 86.1 cm/s MV valve area by continuity eq (test code = 2686843066) 2.70 cm2 MV VTI (test code = 5702522069) 20.5 cm MV V2 mean (test code = 0925458488) 56.30 cm/s Radiology Study observation (narrative) (test code = 89234-4) TIERRA (test code = TIERRA) ?Left?Ventricle: Left ventricle size is normal. Increased wall thickness. There is concentric remodeling. Normal wall motion. Hyperdynamic systolic function with a visually estimated EF of 65 - 70%. Normal diastolic function. ?Right?Ventricle: Right ventricle size is normal. Normal systolic function. TAPSE is 2.35 cm. Roscoe Cuellar, [facility] DURANTardiovascular Medicine FellowBellevue Medical Center VentricleLeft ventricle size is normal. Increased wall [...] apical, parasternal and subcostal views were obtained. [facility] CenterTHY[facility]ID STIMULATING HHEUGWI1507-40-52 17:48:00 * Test Item Value Reference Range Interpretation Comme nts TSH (test code = 9108718765) 0.51 See_Comment [Automated Tk20a Loom] The system which generated this result transmitted reference range: 0.45 - 4.70 mIU/L. The reference range was not used to interpret this result as normal/abnormal. Lab Interpretation (test code = 56563-7) Normal [facility] CenterBAS[facility]ABOLIC PANEL (NA, K, CL, CO2, GLUCOSE, BUN, CREATININE, CA)2023-08-21 17:14:33* Test Item Value Reference Range Interpretation Comme nts NA (test code = 8712616051) 132 mmol/L 135-145 L K (test code = 1119535426) 4.0 mmol/L 3.5-5.0 CL (test code = 1625585252) 106 mmol/L 98-108 CO2 TOTAL (test code = 0559326862) 17 mmol/L 23-31 L AGAP (test code = 5053264783) 9 2-16 BUN (test code = 0456176426) 5 mg/dL 7-23 L GLUCOSE (test code = 7253799291) 75 mg/dL 70-110 CREATININE (test code = 9774835523) 0.44 mg/dL 0.50-1.04 L CALCIUM (test code = 9126980881) 8.4 mg/dL 8.6-10.6 L eGFR (test code = 58946-6) 138.7 mL/min/1.73m2 CKD-EPI eGFR (2020). Assuming creatinine has been stable day-to-day for at least three months, the eGFR indicates Category G1 (>= 90 mL/min/1.73 m2) Lab Interpretation (test code = 86309-8) [facility]normal [facility] CenterHIV 1/2 AG-AB WITH JZPHRS0068-03-02 15:05:53* Test Item Value Reference Range Interpretation Comme nts HIV Semi-quantitative (test code = 88024-8) 0.11 Negative TIERRA (test code = TIERRA) Non-reactive for HIV-1 antigen and HIV-1/HIV-2 antibodies. ?No laboratory evidence of HIV infection. ?Repeat in 2-4 weeks if acute HIV infection is suspected. [facility] CenterHEPATITIS B SURFACE IYWAVLO3373-23-87 15:01:33 * Test Item Value Reference Range Interpretation Comme nts HBsAg Semi-Quantitative (fredy t code = 5195-3) 0.07 Negative [facility] CenterGLYCOSYLATED HEMOGLOBIN (A1C)2023-08-21 14:26:03* Test Item Value Reference Range Interpretation Comme nts HGB A1C (test code = 4548-4) 5.2 % 4.0-5.7 TIERRA (test code = TIERRA) Reference RangesNormal: <5.7%Prediabetes: 5.7 - 6.4%Diabetes: > 6.5% Lab Interpretation (test code = 65409-9) Normal [facility] CenterType and Screen - ONCE Xycpyma1447-51-61 13:34:00* Test Item Value Reference Range Interpretation Comme nts ABO & RH (test code = 20) O POSITIVE IAT (test code = 1185) Negative [facility] CenterProthrombin Time / RPF8234-74-43 02:05:48* Test Item Value Reference Range Interpretation Comme nts PROTIME PATIENT (test code = 5964-2) 13.0 See_Comment [Automated Tk20a ge] The system which generated this result transmitted reference range: 12.0 - 14.7 Seconds. The reference range was not used to interpret this result as normal/abnormal. INR (test code = 6301-6) 1.0 Normal INR <1.1; Warfarin Therapeutic range 2.0 to 3.0 or 2.5 to 3.5, depending upon the indications. Lab Interpretation (test code = 83027-7) Normal [facility] CenteraPTT2023-11-30 02:05:48* Test Item Value Reference Range Interpretation Comme [facility] APTT Patient (test code = 3173-2) 27 See_Comment [Automated message] The system which generated this result transmitted reference range: 23 - 38 Seconds. The reference range was not used to interpret this result as normal/abnormal. TIERRA (test code = TIERRA) The [facility] patient population mean normal value for aPTT is 30 seconds. Lab Interpretation (test code = 45726-9) Normal [facility] CenterCB WITH GRES2261-71-89 01:28:43* Test Item Value Reference Range Interpretation Comme [facility] WBC (test code = 6690-2) 9.07 See_Comment [Automated messa ge] The system which generated this result transmitted reference range: 4.30 - 11.10 10*3/?L. The reference range was not used to interpret this result as normal/abnormal. RBC (test code = 789-8) 3.76 See_Comment L [Automated Tk20a ge] The system which generated this result [...] g/dL 31.6-35.1 L RDW-SD (test code = 03012-2) 45.6 fL 39.0-49.9 RDW-CV (test code = 788-0) 17.0 % 12.0-15.5 H PLT (test code = 777-3) 228 See_Comment [Automated messa ge] The system which generated this result transmitted reference range: 166 - 358 10*3/?L. The reference range was not used to interpret this result as normal/abnormal. MPV (test code = 49968-3) 10.4 fL 9.5-12.9 NRBC/100 WBC (test code = 4781924865) 0.2 See_Comment [Automated Vanu Coverage ssage] The system which generated this result transmitted reference range: 0.0 - 10.0 /100 WBCs. The reference range was not used to interpret this result as normal/abnormal. NRBC x10^3 (test code = 2361180697) 0.02 See_Comment [Automated messa ge] The system which generated this result transmitted reference range: 10*3/?L. The reference range was not used to interpret this result as normal/abnormal. GRAN MAT (NEUT) % (test code = 770-8) 75.4 % IMM GRAN % (test code = 5074700267) 0.90 % LYMPH % (test code = 736-9) 17.6 % MONO % (test code = 5905-5) 4.9 % EOS % (test code = 713-8) 0.9 % BASO % (test code = 706-2) 0.3 % GRAN MAT x10^3(ANC) (test code = 4825763291) 6.84 10*3/uL 1.88-7.09 IMM GRAN x10^3 (test code = 8900245849) 0.08 10*3/uL 0.00-0.06 H LYMPH x10^3 (test code = 731-0) 1.60 10*3/uL 1.32-3.29 MONO x10^3 (test code = 742-7) 0.44 10*3/uL 0.33-0.92 EOS x10^3 (test code = 711-2) 0.08 10*3/uL 0.03-0.39 BASO x10^3 (test code = 704-7) 0.03 10*3/uL 0.01-0.07 Lab Interpretation (test code = 82634-1) [facility]normal [facility] CenterType and Screen - ONCE Ybwmgrm5376-96-53 01:24:00* Test Item Value Reference Range Interpretation Comme nts ABO & RH (test code = 20) O Positive IAT (test code = 1185) Negative [facility] CenterPOCT URINALYSIS W/O SPECIFIC HMWWYTU7648-69-74 16:23:00*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
[2023-12-21] MEDS ORDERED: HYDROCODONE/APAP 7.5/325 MG TAB ONE (13:31)
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
--- NOTE | 2023-12-21 15:16 | EDPHYS ---
Physician Documentation [facility] Name: Arina Valdes Age: 23 yrs Sex: Female : 2000 Arrival Date: 12/21/2023 Time: 13:03 Bed 11 Private MD: ED Physician Kym Hu HPI: 12/20 13:49 This 23 yrs old Female presents to ER via Ambulatory with complaints of Hand sb4 Injury. 13:49 patient states that she was assembling a bed 2 days ago when it collapsed and crushed sb4 her right hand. she complains of pain, swelling, and bruising to the area. has been taking Tylenol without any relief in pain. 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 - Social history:: Smoking status: Reported history of juuling and/or vaping. ROS: 13:49 Constitutional: Negative for fever, chills, and weight loss, sb4 13:49 MS/extremity: Positive for injury or acute deformity, ecchymosis, pain, swelling, tenderness, of the right hand, 13:49 All other systems are negative, Exam: 13:49 Constitutional: This is a well developed, well nourished patient who is awake, alert, sb4 and in no acute distress. Head/Face: Normocephalic, atraumatic. Eyes: Extra-ocular motions intact. Periorbital areas with no swelling, redness, or edema. ENT: Mucous membranes moist. Skin: Warm, dry with normal turgor. Normal color with no rashes, no lesions, and no evidence of cellulitis. Neuro: Awake and alert, GCS 15, oriented to person, place, time, and situation. Motor strength 5/5 in all extremities. Sensory grossly intact. 13:49 Musculoskeletal/extremity: ROM: limited active range of motion due to pain, limited passive range of motion due to pain, Circulation is intact in all extremities. Pulses: are normal with no appreciated deficits, Perfusion: the extremity is normally perfused throughout, Sensation intact. Joints: the MCP of right ring finger and MCP of right little finger displays pain at rest, painful range of motion, swelling, tenderness, Vital Signs: 13:26 BP 117 / 71; Pulse 87; Resp 16 S; Temp 97.9; Pulse Ox 100% on R/A; Weight 90.72 kg (R); as6 Height 5 ft. 5 in. (R); Pain 10/10; 15:15 BP 118 / 72; Pulse 82; Resp 16; Pulse Ox 100% on R/A; db 13:26 Body Mass Index 33.28 (90.72 kg, 165.1 cm) as6 13:26 Pain Scale: Adult as6 MDM: 13:30 Patient medically screened. sb4 13:49 Differential diagnosis: closed fracture, contusion. sb4 15:27 Data reviewed: vital signs, nurses notes, radiologic studies, and as a result, I will sb4 discharge patient. Counseling: I had a detailed discussion with the patient and/or guardian regarding the historical points, exam findings, and any diagnostic results supporting the discharge/admit diagnosis, radiology results, to return to the emergency department if symptoms worsen or persist or if there are any questions or concerns that arise at home. 12/20 13:30 Order name: Hand Right 3 View XRAY; Complete Time: 15:04 sb4 12/20 15:15 Order name: Splint - Thumb Spica; Complete Time: 15:40 sb4 Administered Medications: 13:33 Drug: Hydrocodone-Acetaminophen PO (7.5 mg-325 mg) 1 tabs PO once Route: PO; as6 15:00 Follow up: Response: No adverse reaction db Disposition Summary: 12/21/23 15:15 Discharge Ordered Notes: Location: Home sb4 Problem: new sb4 Symptoms: have improved sb4 Condition: Stable sb4 Diagnosis - Contusion of right hand sb4 Followup: sb4 - With: Rj Baig MD - When: As needed - Reason: Further diagnostic work-up, Recheck today's complaints, Re-evaluation by your physician Discharge Instructions: - Discharge Summary Sheet sb4 - Hand Contusion, Jwpe-az-Mqhp sb4 Forms: - Thank You Letter sb4 - Patient Portal Instructions sb4 - Leadership Thank You Letter sb4 Prescriptions: - ketorolac 10 mg Oral tablet - take 1 tablet ORAL route every 8 hours for 3 days as needed for pain; 12 sb4 tablet; Refills: 0, Product Selection Permitted Signatures: Dispatcher [employer] Salvador Edwards, RN RN as6 Alessandra George PA-C PA-C sb4 Sandy Coe RN db
--- NOTE | 2023-12-21 15:16 | ER ---
Nurse's Notes [facility] Name: Arina Valdes Age: 23 yrs Sex: Female : 2000 Arrival Date: 12/21/2023 Time: 13:03 Bed 11 Private MD: Diagnosis: Contusion of right hand Presentation: 12/20 13:27 Chief complaint: Patient states: pt was putting a bed frame together and the frame fell as6 on her right hand. Coronavirus screen: At this time, the client does not indicate any symptoms associated with coronavirus-19. Ebola Screen: No symptoms or risks identified at this time. Initial Sepsis Screen: Does the patient meet any 2 criteria? No. Patient's initial sepsis screen is negative. Does the patient have a suspected source of infection? No. Patient's initial sepsis screen is negative. Risk Assessment: Do you want to hurt yourself or someone else? Patient reports no desire to harm self or others. Onset of symptoms was December 19, 2023. 13:27 Acuity: PEYTON 4 as6 13:27 Method Of Arrival: Ambulatory as6 Triage Assessment: 13:26 General: Appears in no apparent distress. Behavior is calm, cooperative. Pain: as6 Complains of pain in right hand. 15:00 Respiratory: Airway is patent Respiratory effort is even, unlabored, Respiratory db pattern is regular, symmetrical. Injury Description: Bruise sustained to right hand. 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 - Social history:: Smoking status: Reported history of juuling and/or vaping. Screenin:40 [facility] ED Fall Risk Assessment (Adult) History of falling in the last 3 months, db including since admission No falls in past 3 months (0 pts) Confusion or Disorientation No (0 pts) Intoxicated or Sedated No (0 pts) Impaired Gait No (0 pts) Mobility Assist Device Used No (0 pt) Altered Elimination No (0 pt) Score/Fall Risk Level 0 - 2 = Low Risk Oriented to surroundings, Maintained a safe environment. Abuse screen: Denies threats or abuse. Denies injuries from another. Nutritional screening: No deficits noted. Tuberculosis screening: No symptoms or risk factors identified. Assessment: 14:40 Reassessment: RADIOLOGY AT BEDSIDE. db 14:45 Reassessment: Patient appears in no apparent distress at this time. Patient and/or db family updated on plan of care and expected duration. Pain level reassessed. Patient is alert, oriented x 3, equal unlabored respirations, skin warm/dry/pink. Neuro: Level of Consciousness is awake, alert, obeys commands, Oriented to person, place, time, situation. Respiratory: Airway is patent Respiratory effort is even, unlabored, Respiratory pattern is regular, symmetrical. Musculoskeletal: Circulation, motion, and sensation intact. Capillary refill < 3 seconds, Range of motion: intact in all extremities, Swelling present in right hand. 15:40 Reassessment: Patient appears in no apparent distress at this time. Patient and/or db family updated on plan of care and expected duration. Pain level reassessed. Patient is alert, oriented x 3, equal unlabored respirations, skin warm/dry/pink. General: Appears in no apparent distress. comfortable, Behavior is calm, cooperative. Vital Signs: 13:26 BP 117 / 71; Pulse 87; Resp 16 S; Temp 97.9; Pulse Ox 100% on R/A; Weight 90.72 kg (R); as6 Height 5 ft. 5 in. (R); Pain 10/10; 15:15 BP 118 / 72; Pulse 82; Resp 16; Pulse Ox 100% on R/A; db 13:26 Body Mass Index 33.28 (90.72 kg, 165.1 cm) as6 13:26 Pain Scale: Adult as6 ED Course: 13:05 Patient arrived in ED. ra3 13:25 Alessandra George PA-C is PHCP. sb4 13:25 Kym Hu MD is Attending Physician. sb4 13:26 Arm band placed on. as6 13:29 Triage completed. as6 14:40 Sandy Coe, CARLOS is Primary Nurse. db 14:47 Hand Right 3 View XRAY In Process Unspecified. EDMS 15:15 Rj Baig MD is Referral Physician. sb4 15:40 Patient has correct armband on for positive identification. Bed in low position. Call db light in reach. Side rails up X 1. Provided Education on: FOLLOWUP, PAIN. Pulse ox on. NIBP on. Warm blanket given. 15:40 No provider procedures requiring assistance completed. Patient did not have IV access db during this emergency room visit. Administered Medications: 13:33 Drug: Hydrocodone-Acetaminophen PO (7.5 mg-325 mg) 1 tabs PO once Route: PO; as6 15:00 Follow up: Response: No adverse reaction db Medication: 15:40 VIS not applicable for this client. db Outcome: 15:15 Discharge ordered by . merissa 15:40 Discharged to home ambulatory, db 15:40 Condition: stable 15:40 Discharge instructions given to patient, Instructed on discharge instructions, follow up and referral plans. Prescriptions given X 1, 15:49 Patient left the ED. db Signatures: Dispatcher [employer] Salvador Edwards RN RN as6 Sandy Coe RN RN Alessandra Rose PA-C PAIsaías sb4 Magnolia Chacon ra3
[2023-12-21 19:46] VITALS: BP 118/72; TEMP 97.9; O2SAT 100
== END 2023-12-21 15:49 | disposition home or self-care (01) ==
LOC: ER 13:03
DX: S60.221A Contusion of right hand, initial encounter (principal); W23.0XXA Caught, crushed, jammed, or pinched between moving objects, initial encounter
CPT/HCPCS: 99283

== ENCOUNTER 2024-01-06 23:10 | Emergency (ER) | payer OTHER ==
--- OUTSIDE RECORDS SUMMARY | 2024-01-06 23:24 | XMS REPORT | Continuity of Care Document ---
Author Name Unknown Address [address] [facility] [place] [address] [facility] thconnect Address [address] [facility] [address] [place] [address] Care Team Providers Care Director Apparel Name Role Phone Kory Cruz MD Primary Care Physician [phone] Doctor Unassigned, [place] Attending Clinician U Kory Yo MD Attending Clinician [phone] KORY CRUZ Attending Clinician Unavailable Xenia Angel MD Attending Clinician + Agnes Pedraza MD Attending Clinician [phone] ARIELA WILKINSON Attending Clinician ARIELA Dunn Attending Clinician Jose Antonio candelario 2, [facility] Attending Clinician Unavailable MARY AVINA Attending Clinician Unavailable Mary Avina MD Attending Clinician [phone] ELOY CHAVEZ Attending Clinician UnavailNacho Mccarty DO Attending Clinician [phone] Sheldon KENNEDY, Kristal Phelps Attending Clinician + Sctot KENNEDY, Eloy Ramires Attending Clinician [phone], [facility] Attending Clinician Unavailcatherine Melton MD, Sunita Segura Attending Clinician [phone] Nurse, [facility] Attending Clinician Amanda Krystal Morel CNM Attending Clinician [phone] Sammy RN, Heidi Stinson Attending Clinician Unavaila Huy Lopez Attending Clinician + HUY MENDOZA Attending Clinician Unavail SHELLEY Mccarthy Attending Clinician Unaphu skelton Ultrasound, [facility] Attending Clinician Unavaila Shelley Ortiz MD Attending Clinician + KRYSTAL LOW Attending Clinician Unavaila YVONNE Montano Attending Clinician Unavailable Yvonne Rodriguez Attending Clinician [phone] [facility] Attending Clinician UnaBroderick Manning DO Attending Clinician [phone] JOSY CHAUDHARY Attending Clinician Unavailable KRISSY GREEN Attending Clinician Unavailable Josy Chaudhary PA-C Attending Clinician [phone], [facility] Attending Clinician Unavailable ARIELA WILKINSON Admitting Clinician KORY Weller Admitting Clinician Unavailable Kory Cruz MD Admitting Clinician [phone] MARY AVINA Admitting Clinician Unavailable Mary Avina MD Admitting Clinician [phone] ELOY CHAVEZ Admitting Clinician Unavailcatherine Chavez MD, Eloy Ramires Admitting Clinician [phone] Payers Payer Name Policy Type Policy Number Effective Date Expirati on Date Source [facility] [id number] 2023 00:00:00 MEDICAID PENDING PENDING 2023 00:00:00 2023 00:00:00 [place] [id number] 2023 00:00:00 2023 00:00:[address] 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 Disease Active 2022-09 00:00: 00 [facility] 37 weeks gestation of 37 weeks gestation of Disease Active 2022-09 00:00: 00 [facility] Drug use complicati ng in third trimester Drug use complicati ng in third trimester Disease Active 2022-09 00:00: 00 [facility] 38 weeks gestation of 38 weeks gestation of Disease Active 2022-09 00:00: 00 [facility] Fall (on) (from) unspecifie d stairs and steps, sequela Fall (on) (from) unspecifie d stairs and steps, sequela Disease Active 2022-09 00:00: 00 [facility] Injury Injury Disease Active 2022-09 00:00: 00 [facility] Fall Fall Disease Active 2022-09 00:00: 00 [facility] High-risk in third trimester High-risk in third trimester Disease Active 2022-09 00:00: 00 [facility] Limited care in third trimester Limited care in third trimester Disease Active 2022-09 00:00: 00 [facility] Cramping affecting , antepartum Cramping affecting , antepartum Disease Active 2022-09 00:00: 00 [facility] 30 weeks gestation of 30 weeks gestation of Disease Active 2022-09 00:00: 00 [facility] 31 weeks gestation of 31 weeks gestation of Disease Active 2022-09 00:00: 00 [facility] uterine contractio ns, antepartum , third trimester uterine contractio ns, antepartum , third trimester Disease Active 2022-09 00:00: 00 [facility] 33 weeks gestation of 33 weeks gestation of Disease Active 2022-09 00:00: 00 [facility] Trichomona l vaginitis during Trichomona l vaginitis during Disease Active 02-14 00:00: 00 [facility] Maternal varicella, non-immune Maternal varicella, non-immune Disease Active 02-12 00:00: 00 [facility] Obesity affecting Obesity affecting Disease Active 02-11 00:00: 00 [facility] Nausea and vomiting during Nausea and vomiting during Disease Active 02-11 00:00: 00 [facility] History of heart murmur in childhood History of heart murmur in childhood Disease Active 02-11 00:00: 00 Overview: Formattin g of this note might be different from the original. Age 12EKG NSR with sinus arrhythmi a. Normal EKG compared to 7. [facility] Family history of autism Family history of autism Disease Active 02-11 00:00: 00 Overview: Formattin g of this note might be different from the original. Patient sister and daughter [facility] Nexplanon insertion Nexplanon insertion Disease Active 2018-09 00:00: 00 [facility] Nexplanon in place Nexplanon in place Disease Active 2018-09 00:00: 00 [facility] Encounter for female control Encounter for female control Disease Active 2018-09 00:00: 00 [facility] Anemia, antepartum , third trimester Anemia, antepartum , third trimester Disease Active 2018-09 112 00:00: 00 [facility] Obesity (BMI 30-39.9) Obesity (BMI 30-39.9) Disease Active 01-04 00:00: 00 [facility] History of depression History of depression Disease Active 01-04 00:00: 00 [facility] History of anxiety and depression History of anxiety and depression Disease Active 01-04 00:00: 00 [facility] Anxiety during Anxiety during Disease Active 01-04 00:00: 00 [facility] Allergies, Adverse Reactions, Alerts Allergy Name Allergy Type Status Severity Reaction(s) Onset Date Inactive Date Treating Clinician Comments Source NO KNOWN ALLERGIE S Drug Class Active [facility] Social History Social Habit Start Date Stop Date Quantity Comments Source ASSERTION 2023-01-10 00:00:00 [facility] History of tobacco use Passive smoker [facility] Gender identity [facility] Alcohol intake 2023-10-10 00:00:00 2023-10-10 00:00:00 Current non-drinker of alcohol (finding) [facility] Tobacco Comment 2023-02-11 00:00:00 2023-02-11 00:00:00 fiance smokes outside [facility] Tobacco use and exposure 2023-02-11 00:00:00 2023-02-11 00:00:00 Smokeless tobacco non-user [facility] History of Social function 2023-02-11 00:00:00 2023-02-11 00:00:00 [facility] Exposure to SARS-CoV-2 (event) 2022-01-06 00:00:00 2022-01-16 20:33:00 Unable to assess [facility] Sex Assigned At 2000 00:00:00 2000 00:00:00 [facility] Smoking Status Start Date Stop Date Source Never smoked tobacco [facility] Medications Ordered Medication Name Filled Medication Name Start Date Stop Date Current Medication? Ordering Clinician Indication Dosage Frequency Signature (SIG) Comments Components Source SERTraline (ZOLOFT) 50 mg tablet 10-17 00:00: 00 Yes [id number] 50mg Take 1 tablet by mouth in the morning. [facility] busPIRone 10 mg tablet 10-10 00:00: 00 Yes [id number] 10mg Take 1 tablet by mouth in the morning and 1 tablet in the evening. [facility] SERTraline (ZOLOFT) 25 mg tablet 10-10 00:00: 00 10-18 05:59 :00 Yes [id number] 25mg Take 1 tablet by mouth in the morning for 7 days. [facility] vitamin w/FA tablet 09-26 00:00: 00 Yes [id number] 1{tbl} Take 1 tablet by mouth in the morning. [facility] docusate 100 mg capsule 09-26 00:00: 00 Yes [id number] 200mg Take 2 capsules by mouth once daily as needed for Constipati on. [facility] ferrous sulfate 325 mg (65 mg iron) tablet 09-26 00:00: 00 Yes [id number] 325mg Take 1 tablet by mouth in the morning and 1 tablet in the evening. [facility] ibuprofen 600 mg tablet 09-26 00:00: 00 Yes [id number] 600mg Take 1 tablet by mouth every 6 (six) hours as needed (Pain). Take with food or milk. [facility] witch Gilbert (TUCKS) 50 % topical pad 09-25 16:22: 14 Yes Topical, Q4HPRN, Starting on Airam 09/25/23 at 1022, Until Discontinu ed, Routine, rectal/hem orrhoidal [facility] rho(D) immune globulin (RHOGAM) syringe 300 mcg 09-25 16:18: 36 Yes 300ug 300 mcg, Intramuscu lar, ONCE, For 1 dose, Conditiona l, Routine [facility] HYDROcodone -acetaminop hen (NORCO 5) 5-325 mg tablet 1 tablet 09-25 16:18: 06 Yes 1{tbl} 1 tablet, Oral, Q6HPRN, Starting on Airam 09/25/23 at 1018, Until Discontinu ed, Routine, Pain (scale 7-10) [facility] ibuprofen (IBU) tablet 600 mg 09-25 16:18: 06 Yes 600mg 600 mg, Oral, Q6HPRN, Starting on Airam 09/25/23 at 1018, Until Discontinu ed, Routine, Pain (scale 4-6) [facility] acetaminoph en (TYLENOL) tablet 650 mg 09-25 16:18: 06 Yes 650mg 650 mg, Oral, Q6HPRN, Starting on Airam 09/25/23 at 1018, Until Discontinu ed, Routine, Pain (scale 1-3) [facility] diphenhydrA MINE (BENADRYL) tablet 25 mg 09-25 16:18: 06 Yes 25mg 25 mg, Oral, Q6HPRN, Starting on Airam 09/25/23 at 1018, Until Discontinu ed, Routine, Sleep, Itching [facility] ondansetron (ZOFRAN (PF)) injection 4 mg 09-25 16:18: 06 Yes 4mg 4 mg, Slow IV Push, Q8HPRN, Starting on Airam 09/25/23 at 1018, Until Discontinu ed, Routine, Nausea and Vomiting (N/V) [facility] simethicone (GAS RELIEF (SIMETHICON E)) chewable tablet 160 mg 09-25 16:18: 06 Yes 160mg 160 mg, Oral, PC+HSPRN, Starting on Airam 09/25/23 at 1018, Until Discontinu ed, Routine, Gas [facility] docusate (COLACE) capsule 200 mg 09-25 16:18: 06 Yes 200mg 200 mg, Oral, QDAILYPRN, Starting on Airam 09/25/23 at 1018, Until Discontinu ed, Routine, Constipati on [facility] magnesium hydroxide (MILK OF MAGNESIA) 400 mg/5 mL suspension 30 mL 09-25 16:18: 06 Yes 30mL 30 mL, Oral, QDAILYPRN, Starting on Airam 09/25/23 at 1018, Until Discontinu ed, Routine, Constipati on [facility] benzocaine- menthol (DERMOPLAST ) 20-0.5 % topical spray 09-25 16:18: 06 Yes Topical, PRN, Starting on Fri09/25/23 at 1018, Until Discontinu ed, Routine, Perineum discomfort [facility] SERTraline (ZOLOFT) tablet 100 mg 09-25 15:00: 00 Yes 100mg 100 mg, Oral, DAILY, First dose on Fri09/25/23 at 0900, Until Discontinu ed, Routine [facility] fentaNYL-ro pivacaine 2 mcg/mL-0.1 % (PF) in NS 200 mL epidural infusion RTU 09-25 09:30: 00 09-25 14:54 :08 No Epidural, ONCE INTRA PROCEDURE, Starting on Fri09/25/23 at 0330, Until Airam 09/25/23 at 0854, Routine, Intra-op [facility] lidocaine-e pinephrine (XYLOCAINE W/EPINEPHRI NE) 1.5 %-1:200,000 injection 09-25 09:30: 00 09-25 14:54 :08 No Intraderma l, ONCE INTRA PROCEDURE, Starting on Fri09/25/23 at 0330, Until Airam 09/25/23 at 0854, Routine, Intra-op [facility] FENTanyl PF (SUBLIMAZE (PF)) injection 100 mcg 09-25 07:40: 08 09-25 16:22 :14 No 100ug 100 mcg, Slow IV Push, Q1HPRN, Starting on Fri09/25/23 at 0140, Until Airam 09/25/23 at 1022, Routine, contractio n pain without an epidural and SVE < 8 cm and Cat I strip [facility] ondansetron (ZOFRAN (PF)) injection 4 mg 09-25 07:40: 00 09-25 16:22 :14 No 4mg 4 mg, Slow IV Push, Q8HPRN, Nausea and Vomiting (N/V), Starting on Airam 09/25/23 at 0140
Do ses of ondansetro n 16 mg and above need to be administer ed via IV piggyback. For Dose >=24mg ECG monitoring is advisable.
[facility] oxytocin (PITOCIN) 30 units in NS 500 mL IV infusion 09-25 07:38: 50 09-25 16:21 :41 No 2mU/min at 2-40 mL/hr, IV Infusion, TITRATE, Starting on Airam 09/25/23 at 0138, Until Airam 09/25/23 at 1021, ABHAY [facility] oxytocin (PITOCIN) 30 units in NS 500 mL IV infusion 09-25 07:36: 45 09-25 13:45 :00 No 600mL/h 600 mL/hr, IV Infusion, PRN, PPH, Starting on Airam 09/25/23 at 0136, For 1 dose
As instructed by physician at bedside.<b r> [facility] lactated ringers IV infusion 500 mL 09-25 07:36: 45 09-25 16:21 :41 No 500mL at 999 mL/hr, 500 mL, IV Infusion, PRN - SEE INSTRUCTIO NS, Starting on Airam 09/25/23 at 0136, Until Airam 09/25/23 at 1021, Routine [facility] D5W-LR IV infusion 1,000 mL 09-25 07:36: 45 09-25 16:21 :40 No 1000mL at 1-125 mL/hr, IV Infusion, TITRATE, Starting on Airam 09/25/23 at 0136, Until Airam 24 at 1021, Routine [facility] famotidine 20 mg tablet 2022-09 00:00: 00 09-26 00:00 :00 No [id number] 20mg Take 1 tablet by mouth in the morning and 1 tablet in the evening. [facility] lactated ringers IV infusion 1,000 mL 2022-09 09:30: 00 Yes 1000mL at 125 mL/hr, 1,000 mL, IV Infusion, CONTINUOUS , Starting on Fri09/16/23 at 0330, Until Discontinu ed, Routine [facility] acetaminoph en (TYLENOL) tablet 650 mg 2022-09 09:17: 17 Yes 650mg 650 mg, Oral, Q6HPRN, Starting on Fri09/16/23 at 0317, Until Discontinu ed, Routine, Pain (scale 1-3) [facility] SERTraline 100 mg tablet 2022-09 00:00: 00 09-26 00:00 :00 No [id number] 109 100mg Take 1 tablet by mouth in the morning. [facility] proMETHazin e (PHENERGAN) tablet 25 mg 2022-09 14:29: 24 Yes 25mg 25 mg, Oral, Q6HPRN, Starting on Fri08/22/23 at 0829, Until Discontinu ed, Routine, Nausea and Vomiting (N/V) [facility] diphenhydrA MINE (BENADRYL) tablet 25 mg 2022-09 03:00: 00 08-22 03:19 :00 No 25mg 25 mg, Oral, ONCE, 1 dose, On Fri08/21/23 at 2100, Routine [facility] ferrous sulfate 325 mg (65 mg iron) tablet 2022-09 00:00: 00 09-26 00:00 :00 No [id number] 325mg Take 1 tablet by mouth in the morning. [facility] cyclobenzap rine (FLEXERIL) tablet 10 mg 2022-09 22:15: 00 08-21 22:06 :00 No 10mg 10 mg, Oral, ONCE NOW, 1 dose, On Fri08/21/23 at 1615, Routine [facility] terbutaline (BRETHINE) injection 0.25 mg 2022-09 19:45: 00 08-21 19:08 :00 No .25mg 0.25 mg, Subcutaneo us, ONCE, 1 dose, On Fri08/21/23 at 1345, Routine [facility] lactated ringers IV infusion 1,000 mL 2022-09 18:00: 00 08-21 19:10 :00 No 1000mL at 999 mL/hr, 1,000 mL, IV Infusion, ONCE, 1 dose, On Fri08/21/23 at 1200, Routine [facility] acetaminoph en (TYLENOL) tablet 1,000 mg 2022-09 17:00: 00 08-21 16:12 :00 No 1000mg 1,000 mg, Oral, ONCE, 1 dose, On Fri08/21/23 at 1100, Routine [facility] ferrous sulfate tablet 325 mg 2022-09 15:00: 00 Yes 325mg 325 mg, Oral, DAILY, First dose on Fri08/21/23 at 0900, Until Discontinu ed, Routine [facility] SERTraline (ZOLOFT) tablet 100 mg 2022-09 15:00: 00 Yes 100mg 100 mg, Oral, DAILY, First dose on Fri08/21/23 at 0900, Until Discontinu ed, Routine [facility] diphenhydrA MINE (BENADRYL) tablet 25 mg 2022-09 09:16: 00 08-21 09:24 :00 No 25mg 25 mg, Oral, ONCE, 1 dose, On Airam 08/21/23 at 0330, Routine [facility] fluconazole (DIFLUCAN) tablet 150 mg 2022-09 08:00: 00 08-21 08:00 :00 No 150mg 150 mg, Oral, ONCE, 1 dose, On Fri08/21/23 at 0200, ABHAY
Re ason for Anti-Infec tive: Documented Infection< br>Documen refugio Infection Site: Pelvic
Duration of Therapy: 7 days [facility] alum-mag hydroxide-s imeth (MAG-AL PLUS) 200-200-20 mg/5 mL suspension 30 mL 2022-09 07:05: 45 Yes 30mL 30 mL, Oral, Q6HPRN, Starting on Fri08/21/23 at 0105, Until Discontinu ed, Routine, Indigestio n [facility] docusate (COLACE) capsule 200 mg 2022-09 07:05: 45 Yes 200mg 200 mg, Oral, QHSPRN, Starting on Fri08/21/23 at 0105, Until Discontinu ed, Routine, Constipati on [facility] magnesium hydroxide (MILK OF MAGNESIA) 400 mg/5 mL suspension 30 mL 2022-09 07:05: 45 Yes 30mL 30 mL, Oral, QDAILYPRN, Starting on Fri08/21/23 at 0105, Until Discontinu ed, Routine, Constipati on [facility] ondansetron (ZOFRAN (PF)) injection 4 mg 2022-09 06:45: 00 08-21 06:58 :00 No 4mg 4 mg, Slow IV Push, ONCE, On Fri08/21/23 at 0045, For 1 dose
Do ses of ondansetro n 16 mg and above need to be administer ed via IV piggyback. For Dose >=24mg ECG monitoring is advisable.
[facility] acetaminoph en (TYLENOL) tablet 1,000 mg 2022-09 06:45: 00 08-21 06:58 :00 No 1000mg 1,000 mg, Oral, ONCE, 1 dose, On Fri08/21/23 at 0045, Routine [facility] FENTanyl PF (SUBLIMAZE (PF)) injection 100 mcg 2022-09 02:15: 00 08-21 01:26 :00 No 100ug 100 mcg, Slow IV Push, ONCE, 1 dose, On Fri08/20/23 at 2015, Routine [facility] betamethaso ne acet,sod phos (CELESTONE SOLUSPAN) 6 mg/mL injection 12 mg 2022-09 01:45: 00 08-22 01:34 :00 No 12mg 12 mg, Intramuscu lar, Q24H, 2 doses, First dose on Fri08/20/23 at 1945, Last dose on Fri08/21/23 at 1945, Routine [facility] D5W 0.9% NaCl (NS) IV infusion 1,000 mL 2022-09 23:45: 00 08-21 19:39 :48 No 1000mL at 125 mL/hr, 1,000 mL, IV Infusion, CONTINUOUS , Starting on Fri08/20/23 at 1745, Until Fri08/21/23 at 1339, Routine [facility] SERTraline 100 mg tablet 2022-09 00:00: 00 09-11 00:00 :00 No [id number] 109 100mg Take 1 tablet by mouth in the morning. [facility] Nitrofurant oin&Nit. Macrocryst (MACROBID) 100 mg capsule 2022-09 00:00: 00 08-12 05:59 :00 No [id number] 100mg Take 1 capsule by mouth in the morning and 1 capsule in the evening. Do all this for 7 days. [facility] acetaminoph en (TYLENOL) tablet 650 mg 2022-09 10:00: 00 07-29 09:53 :00 No 650mg 650 mg, Oral, ONCE, 1 dose, On Fri07/29/23 at 0400, Routine [facility] SERTraline 100 mg tablet 05-21 00:00: 00 08-04 00:00 :00 No [id number] 109 100mg Take 1 tablet by mouth in the morning. [facility] ondansetron (ZOFRAN (PF)) injection 4 mg 04-18 20:45: 00 04-18 20:21 :00 No 4mg 4 mg, Slow IV Push, ONCE, On Fri04/18/23 at 1545, For 1 dose
Do ses of ondansetro n 16 mg and above need to be administer ed via IV piggyback. For Dose >=24mg ECG monitoring is advisable.
[facility] NaCl 0.9% (NS) bolus infusion 1,000 mL 04-18 20:30: 00 04-18 19:32 :00 No 1000mL at 999 mL/hr, 1,000 mL, IV Infusion, ONCE, 1 dose, On Fri04/18/23 at 1530, STAT [facility] NaCl 0.9% (NS) bolus infusion 1,000 mL 04-18 19:15: 00 04-18 18:27 :00 No 1000mL at 999 mL/hr, 1,000 mL, IV Infusion, ONCE, 1 dose, On Fri04/18/23 at 1415, STAT [facility] metroNIDAZO LE (FLAGYL) 500 mg tablet 04-18 00:00: 00 08-04 00:00 :00 No [id number] 500mg Take 1 tablet by mouth every 12 (twelve) hours. [facility] fluconazole (DIFLUCAN) 150 mg tablet 04-07 00:00: 00 04-08 04:59 :00 No [id number] 150mg Take 1 tablet by mouth once now for 1 dose. [facility] proMETHazin e 25 mg tablet 04-03 00:00: 00 09-26 00:00 :00 No [id number] 25mg Take 1 tablet by mouth every 4 (four) hours as needed for Nausea and Vomiting (N/V). [facility] SERTraline (ZOLOFT) 50 mg tablet 04-03 00:00: 00 05-08 04:59 :00 No [id number] 109 Take 1 tablet by mouth daily for 4 days, THEN 2 tablets daily for 30 days. [facility] vit 33-iron-fol ic-dha (SELECT-OB + DHA) 29 mg iron-1 mg -250 mg combo pack 03-11 00:00: 00 Yes [id number] 1{packe t} Take 1 Packet by mouth in the morning. [facility] vit 33-iron-fol ic-dha (SELECT-OB + DHA) 29 mg iron-1 mg -250 mg combo pack 2023-0 6-20 00:00: 00 09-26 00:00 :00 No [id number] 1{packe t} Take 1 Packet by mouth in the morning. [facility] proMETHazin e 25 mg tablet 30 00:00: 00 04-03 00:00 :00 No [id number] 25mg Take 1 tablet by mouth every 4 (four) hours as needed for Nausea and Vomiting (N/V). [facility] metroNIDAZO LE 500 mg tablet 02-14 00:00: 00 02-15 04:59 :00 No [id number] 2000mg Take 4 tablets by mouth once now for 1 dose. [facility] ondansetron (ZOFRAN (PF)) injection 4 mg 01-17 04:00: 00 01-17 03:11 :00 No 4mg 4 mg, Slow IV Push, ONCE, 1 dose, On Fri01/16/22 at 2300, ABHAY [facility] NaCl 0.9% (NS) bolus infusion 1,000 mL 01-17 04:00: 00 01-17 03:52 :00 No 1000mL at 999 mL/hr, 1,000 mL, IV Infusion, ONCE, 1 dose, On Fri01/16/22 at 2300, ABHAY [facility] ondansetron 4 mg disintegrat ing tablet 01-16 00:00: 00 04-03 00:00 :00 No [id number] 4mg Take 1 tablet by mouth every 8 (eight) hours as needed for Nausea and Vomiting (N/V). [facility] azithromyci n 250 mg tablet 12-17 00:00: 00 02-11 00:00 :00 No [id number] 250mg Take 1 tablet by mouth daily. Take 500 mg day 1, then 250 mg days 2 to 5. [facility] Nitrofurant oin&Nit. Macrocryst 100 mg capsule 05-04 00:00: 00 05-12 04:59 :00 No [id number] 100mg Take 1 capsule by mouth 2 (two) times daily for 7 days. [facility] metroNIDAZO LE 500 mg tablet 04-30 00:00: 00 05-04 00:00 :00 No [id number] 500mg Take 1 tablet by mouth every 12 (twelve) hours. [facility] fluconazole (DIFLUCAN) 200 mg tablet 04-29 00:00: 00 05-04 00:00 :00 No [id number] 200mg Take 1 tablet by mouth daily. [facility] [id number], carb,glu-FA -dss-dha (CITRANATAL DHA, ALGAL OIL,) 27 mg iron-1 mg -50 mg-250 mg Cmpk 01-04 00:00: 00 Yes [id number] 9106 Take 1 TAB-CAP/M2 by mouth daily. [facility] Immunizations Ordered Immunization Name Filled Immunization Name Date Status Comments Source SARS-COV-2 COVID-19 VACCINE - (MODERNA) 2021-11-01 00:00:00 Completed [facility] SARS-COV-2 COVID-19 VACCINE - (MODERNA) 2021-11-01 00:00:00 Completed [facility] SARS-COV-2 COVID-19 VACCINE - (MODERNA) 2021-11-01 00:00:00 Completed [facility] SARS-COV-2 COVID-19 VACCINE - (MODERNA) 2021-11-01 00:00:00 Completed [facility] SARS-COV-2 COVID-19 VACCINE - (MODERNA) 2021-11-01 00:00:00 Completed [facility] SARS-COV-2 COVID-19 VACCINE - (MODERNA) 2021-11-01 00:00:00 Completed [facility] SARS-COV-2 COVID-19 VACCINE - (MODERNA) 2021-11-01 00:00:00 Completed [facility] SARS-COV-2 COVID-19 VACCINE - (MODERNA) 2021-11-01 00:00:00 Completed [facility] SARS-COV-2 COVID-19 VACCINE - (MODERNA) 2021-11-01 00:00:00 Completed [facility] SARS-COV-2 COVID-19 VACCINE - (MODERNA) 2021-11-01 00:00:00 Completed [facility] SARS-COV-2 COVID-19 VACCINE - (MODERNA) 2021-11-01 00:00:00 Completed [facility] SARS-COV-2 COVID-19 VACCINE - (MODERNA) 2021-11-01 00:00:00 Completed [facility] SARS-COV-2 COVID-19 VACCINE - (MODERNA) 2021-11-01 00:00:00 Completed [facility] SARS-COV-2 COVID-19 VACCINE - (MODERNA) 2021-11-01 00:00:00 Completed [facility] [facility] SARS-COV-2 COVID-19 VACCINE - (MODERNA) 2021-11-01 00:00:00 Completed [facility] SARS-COV-2 COVID-19 VACCINE - (MODERNA) 2021-11-01 00:00:00 Completed [facility] SARS-COV-2 COVID-19 VACCINE - (MODERNA) 2021-11-01 00:00:00 Completed [facility] SARS-COV-2 COVID-19 VACCINE - (MODERNA) 2021-11-01 00:00:00 Completed [facility] SARS-COV-2 COVID-19 VACCINE - (MODERNA) 2021-11-01 00:00:00 Completed [facility] SARS-COV-2 COVID-19 VACCINE - (MODERNA) 2021-11-01 00:00:00 Completed [facility] SARS-COV-2 COVID-19 VACCINE - (MODERNA) 2021-11-01 00:00:00 Completed [facility] SARS-COV-2 COVID-19 VACCINE - (MODERNA) 2021-06-08 00:00:00 Completed [facility] SARS-COV-2 COVID-19 VACCINE - (MODERNA) 2021-06-08 00:00:00 Completed [facility] SARS-COV-2 COVID-19 VACCINE - (MODERNA) 2021-06-08 00:00:00 Completed [facility] SARS-COV-2 COVID-19 VACCINE - (MODERNA) 2021-06-08 00:00:00 Completed [facility] SARS-COV-2 COVID-19 VACCINE - (MODERNA) 2021-06-08 00:00:00 Completed [facility] SARS-COV-2 COVID-19 VACCINE - (MODERNA) 2021-06-08 00:00:00 Completed [facility] SARS-COV-2 COVID-19 VACCINE - (MODERNA) 2021-06-08 00:00:00 Completed [facility] SARS-COV-2 COVID-19 VACCINE - (MODERNA) 2021-06-08 00:00:00 Completed [facility] SARS-COV-2 COVID-19 VACCINE - (MODERNA) 2021-06-08 00:00:00 Completed [facility] SARS-COV-2 COVID-19 VACCINE - (MODERNA) 2021-06-08 00:00:00 Completed [facility] SARS-COV-2 COVID-19 VACCINE - (MODERNA) 2021-06-08 00:00:00 Completed [facility] SARS-COV-2 COVID-19 VACCINE - (MODERNA) 2021-06-08 00:00:00 Completed [facility] SARS-COV-2 COVID-19 VACCINE - (MODERNA) 2021-06-08 00:00:00 Completed [facility] SARS-COV-2 COVID-19 VACCINE - (MODERNA) 2021-06-08 00:00:00 Completed [facility] SARS-COV-2 COVID-19 VACCINE - (MODERNA) 2021-06-08 00:00:00 Completed [facility] SARS-COV-2 COVID-19 VACCINE - (MODERNA) 2021-06-08 00:00:00 Completed [facility] SARS-COV-2 COVID-19 VACCINE - (MODERNA) 2021-06-08 00:00:00 Completed [facility] SARS-COV-2 COVID-19 VACCINE - (MODERNA) 2021-06-08 00:00:00 Completed [facility] SARS-COV-2 COVID-19 VACCINE - (MODERNA) 2021-06-08 00:00:00 Completed [facility] SARS-COV-2 COVID-19 VACCINE - (MODERNA) 2021-06-08 00:00:00 Completed [facility] SARS-COV-2 COVID-19 VACCINE - (MODERNA) 2021-06-08 00:00:00 Completed [facility] Influenza Virus Vaccine Quad .5 mL IM 6+ MO 2019-06-29 00:00:00 Completed [facility] Influenza Virus Vaccine Quad .5 mL IM 6+ MO 2019-06-29 00:00:00 Completed [facility] Influenza Virus Vaccine Quad .5 mL IM 6+ MO 2019-06-29 00:00:00 Completed [facility] Influenza Virus Vaccine Quad .5 mL IM 6+ MO 2019-06-29 00:00:00 Completed [facility] Influenza Virus Vaccine Quad .5 mL IM 6+ MO (FLUZONE/FLULAVAL/FL UARIX) 2019-06-29 00:00:00 Completed [facility] Influenza Virus Vaccine Quad .5 mL IM 6+ MO (FLUZONE/FLULAVAL/FL UARIX) 2019-06-29 00:00:00 Completed [facility] Influenza Virus Vaccine Quad .5 mL IM 6+ MO (FLUZONE/FLULAVAL/FL UARIX) 2019-06-29 00:00:00 Completed [facility] Influenza Virus Vaccine Quad .5 mL IM 6+ MO (FLUZONE/FLULAVAL/FL UARIX) 2019-06-29 00:00:00 Completed [facility] Influenza Virus Vaccine Quad .5 mL IM 6+ MO 2019-06-29 00:00:00 Completed [facility] Influenza Virus Vaccine Quad .5 mL IM 6+ MO 2019-06-29 00:00:00 Completed [facility] Influenza Virus Vaccine Quad .5 mL IM 6+ MO 2019-06-29 00:00:00 Completed [facility] Influenza Virus Vaccine Quad .5 mL IM 6+ MO 2019-06-29 00:00:00 Completed [facility] Influenza Virus Vaccine Quad .5 mL IM 6+ MO 2019-06-29 00:00:00 Completed [facility] Influenza Virus Vaccine Quad .5 mL IM 6+ MO 2019-06-29 00:00:00 Completed [facility] Influenza Virus Vaccine Quad .5 mL IM 6+ MO 2019-06-29 00:00:00 Completed [facility] Influenza Virus Vaccine Quad .5 mL IM 6+ MO 2019-06-29 00:00:00 Completed [facility] Influenza Virus Vaccine Quad .5 mL IM 6+ MO 2019-06-29 00:00:00 Completed [facility] Influenza Virus Vaccine Quad .5 mL IM 6+ MO 2019-06-29 00:00:00 Completed [facility] Influenza Virus Vaccine Quad .5 mL IM 6+ MO 2019-06-29 00:00:00 Completed [facility] Influenza Virus Vaccine Quad .5 mL IM 6+ MO 2019-06-29 00:00:00 Completed [facility] Influenza Virus Vaccine Quad .5 mL IM 6+ MO 2019-06-29 00:00:00 Completed [facility] Influenza Virus Vaccine Quad .5 mL IM 6+ MO 2019-06-29 00:00:00 Completed [facility] Influenza Virus Vaccine Quad .5 mL IM 6+ MO 2019-06-29 00:00:00 Completed [facility] Influenza Virus Vaccine Quad .5 mL IM 6+ MO 2019-06-29 00:00:00 Completed [facility] TDAP (ADACEL) VACCINE 2019-05-27 00:00:00 Completed [facility] TDAP (ADACEL) VACCINE 2019-05-27 00:00:00 Completed [facility] TDAP (ADACEL) VACCINE 2019-05-27 00:00:00 Completed [facility] TDAP (ADACEL) VACCINE 2019-05-27 00:00:[address] [facility] TDAP (ADACEL) VACCINE 2019-05-27 00:00:00 Completed [facility] TDAP (ADACEL) VACCINE 2019-05-27 00:00:[address] [facility] TDAP (ADACEL) VACCINE 2019-05-27 00:00:00 Completed [facility] TDAP (ADACEL) VACCINE 2019-05-27 00:00:00 Completed [facility] TDAP (ADACEL) VACCINE 2019-05-27 00:00:00 Completed [facility] TDAP (ADACEL) VACCINE 2019-05-27 00:00:00 Completed [facility] TDAP (ADACEL) VACCINE 2019-05-27 00:00:00 Completed [facility] TDAP (ADACEL) VACCINE 2019-05-27 00:00:[address] [facility] TDAP (ADACEL) VACCINE 2019-05-27 00:00:[address] [facility] TDAP (ADACEL) VACCINE 2019-05-27 00:00:00 Completed [facility] TDAP (ADACEL) VACCINE 2019-05-27 00:00:00 Completed [facility] TDAP (ADACEL) VACCINE 2019-05-27 00:00:[address] [facility] TDAP (ADACEL) VACCINE 2019-05-27 00:00:00 Completed [facility] TDAP (ADACEL) VACCINE 2019-05-27 00:00:00 Completed [facility] TDAP (ADACEL) VACCINE 2019-05-27 00:00:00 Completed [facility] TDAP (ADACEL) VACCINE 2019-05-27 00:00:00 Completed [facility] TDAP (ADACEL) VACCINE 2019-05-27 00:00:00 Completed [facility] TDAP (ADACEL) VACCINE 2019-05-27 00:00:00 Completed [facility] TDAP (ADACEL) VACCINE 2019-05-27 00:00:00 Completed [facility] TDAP (ADACEL) VACCINE 2019-05-27 00:00:00 Completed [facility] TDAP (ADACEL) VACCINE 2019-05-27 00:00:00 Completed [facility] TDAP (ADACEL) VACCINE 2019-04-01 00:00:00 Completed [facility] TDAP (ADACEL) VACCINE 2019-04-01 00:00:00 Completed [facility] TDAP (ADACEL) VACCINE 2019-04-01 00:00:00 Completed [facility] TDAP (ADACEL) VACCINE 2019-04-01 00:00:00 Completed [facility] TDAP (ADACEL) VACCINE 2019-04-01 00:00:00 Completed [facility] TDAP (ADACEL) VACCINE 2019-04-01 00:00:00 Completed [facility] TDAP (ADACEL) VACCINE 2019-04-01 00:00:00 Completed [facility] TDAP (ADACEL) VACCINE 2019-04-01 00:00:00 Completed [facility] TDAP (ADACEL) VACCINE 2019-04-01 00:00:[address] [facility] TDAP (ADACEL) VACCINE 2019-04-01 00:00:[address] [facility] TDAP (ADACEL) VACCINE 2019-04-01 00:00:00 Completed [facility] TDAP (ADACEL) VACCINE 2019-04-01 00:00:00 Completed [facility] TDAP (ADACEL) VACCINE 2019-04-01 00:00:[address] [facility] TDAP (ADACEL) VACCINE 2019-04-01 00:00:00 Completed [facility] TDAP (ADACEL) VACCINE 2019-04-01 00:00:00 Completed [facility] TDAP (ADACEL) VACCINE 2019-04-01 00:00:00 Completed [facility] TDAP (ADACEL) VACCINE 2019-04-01 00:00:00 Completed [facility] TDAP (ADACEL) VACCINE 2019-04-01 00:00:00 Completed [facility] TDAP (ADACEL) VACCINE 2019-04-01 00:00:00 Completed [facility] TDAP (ADACEL) VACCINE 2019-04-01 00:00:00 Completed [facility] TDAP (ADACEL) VACCINE 2019-04-01 00:00:00 Completed [facility] TDAP (ADACEL) VACCINE 2019-04-01 00:00:00 Completed [facility] TDAP (ADACEL) VACCINE 2019-04-01 00:00:00 Completed [facility] TDAP (ADACEL) VACCINE 2019-04-01 00:00:00 Completed [facility] TDAP (ADACEL) VACCINE 2019-04-01 00:00:00 Completed [facility] TDAP (ADACEL) VACCINE 2019-04-01 00:00:00 Completed [facility] TDAP (ADACEL) VACCINE 2019-04-01 00:00:00 Completed [facility] TDAP (ADACEL) VACCINE 2019-04-01 00:00:00 Completed [facility] TDAP (ADACEL) VACCINE 2019-04-01 00:00:00 Completed [facility] TDAP (ADACEL) VACCINE 2019-04-01 00:00:00 Completed [facility] TDAP (ADACEL) VACCINE 2019-04-01 00:00:00 Completed [facility] TDAP (ADACEL) VACCINE 2019-04-01 00:00:00 Completed [facility] TDAP (ADACEL) VACCINE 2019-04-01 00:00:00 Completed [facility] TDAP (ADACEL) VACCINE 2019-04-01 00:00:00 Completed [facility] TDAP (ADACEL) VACCINE 2019-04-01 00:00:00 Completed [facility] TDAP (ADACEL) VACCINE 2019-04-01 00:00:00 Completed [facility] TDAP (ADACEL) VACCINE 2019-04-01 00:00:00 Completed [facility] Influenza Virus Vaccine Quad .5 mL IM 6+ MO 2019-01-04 00:00:00 Completed [facility] Influenza Virus Vaccine Quad .5 mL IM 6+ MO 2019-01-04 00:00:00 Completed [facility] Influenza Virus Vaccine Quad .5 mL IM 6+ MO 2019-01-04 00:00:00 Completed [facility] Influenza Virus Vaccine Quad .5 mL IM 6+ MO 2019-01-04 00:00:00 Completed [facility] Influenza Virus Vaccine Quad .5 mL IM 6+ MO 2019-01-04 00:00:00 Completed [facility] Influenza Virus Vaccine Quad .5 mL IM 6+ MO (FLUZONE/FLULAVAL/FL UARIX) 2019-01-04 00:00:00 Completed [facility] Influenza Virus Vaccine Quad .5 mL IM 6+ MO (FLUZONE/FLULAVAL/FL UARIX) 2019-01-04 00:00:00 Completed [facility] Influenza Virus Vaccine Quad .5 mL IM 6+ MO (FLUZONE/FLULAVAL/FL UARIX) 2019-01-04 00:00:00 Completed [facility] Influenza Virus Vaccine Quad .5 mL IM 6+ MO (FLUZONE/FLULAVAL/FL UARIX) 2019-01-04 00:00:00 Completed [facility] Influenza Virus Vaccine Quad .5 mL IM 6+ MO 2019-01-04 00:00:00 Completed [facility] Influenza Virus Vaccine Quad .5 mL IM 6+ MO 2019-01-04 00:00:00 Completed [facility] Influenza Virus Vaccine Quad .5 mL IM 6+ MO 2019-01-04 00:00:00 Completed [facility] Influenza Virus Vaccine Quad .5 mL IM 6+ MO 2019-01-04 00:00:00 Completed [facility] Influenza Virus Vaccine Quad .5 mL IM 6+ MO 2019-01-04 00:00:00 Completed [facility] Influenza Virus Vaccine Quad .5 mL IM 6+ MO 2019-01-04 00:00:00 Completed [facility] Influenza Virus Vaccine Quad .5 mL IM 6+ MO 2019-01-04 00:00:00 Completed [facility] Influenza Virus Vaccine Quad .5 mL IM 6+ MO 2019-01-04 00:00:00 Completed [facility] Influenza Virus Vaccine Quad .5 mL IM 6+ MO 2019-01-04 00:00:00 Completed [facility] Influenza Virus Vaccine Quad .5 mL IM 6+ MO 2019-01-04 00:00:00 Completed [facility] Influenza Virus Vaccine Quad .5 mL IM 6+ MO 2019-01-04 00:00:00 Completed [facility] Influenza Virus Vaccine Quad .5 mL IM 6+ MO 2019-01-04 00:00:00 Completed [facility] Influenza Virus Vaccine Quad .5 mL IM 6+ MO 2019-01-04 00:00:00 Completed [facility] Influenza Virus Vaccine Quad .5 mL IM 6+ MO 2019-01-04 00:00:00 Completed [facility] Influenza Virus Vaccine Quad .5 mL IM 6+ MO 2019-01-04 00:00:00 Completed [facility] Influenza Virus Vaccine Quad .5 mL IM 6+ MO 2019-01-04 00:00:00 Completed [facility] Influenza Virus Vaccine Quad .5 mL IM 6+ MO 2019-01-04 00:00:00 Completed [facility] Influenza Virus Vaccine Quad .5 mL IM 6+ MO 2019-01-04 00:00:00 Completed [facility] Influenza Virus Vaccine Quad .5 mL IM 6+ MO 2019-01-04 00:00:00 Completed [facility] Influenza Virus Vaccine Quad .5 mL IM 6+ MO 2019-01-04 00:00:00 Completed [facility] Influenza Virus Vaccine Quad .5 mL IM 6+ MO 2019-01-04 00:00:00 Completed [facility] Influenza Virus Vaccine Quad .5 mL IM 6+ MO 2019-01-04 00:00:00 Completed [facility] Influenza Virus Vaccine Quad .5 mL IM 6+ MO 2019-01-04 00:00:00 Completed [facility] Influenza Virus Vaccine Quad .5 mL IM 6+ MO 2019-01-04 00:00:00 Completed [facility] Influenza Virus Vaccine Quad .5 mL IM 6+ MO 2019-01-04 00:00:00 Completed [facility] Influenza Virus Vaccine Quad .5 mL IM 6+ MO 2019-01-04 00:00:00 Completed [facility] Influenza Virus Vaccine Quad .5 mL IM 6+ MO 2019-01-04 00:00:00 Completed [facility] Influenza Virus Vaccine Quad .5 mL IM 6+ MO 2019-01-04 00:00:00 Completed [facility] HPV 2015-04-13 00:00:00 Completed [facility] Meningococcal Polysaccharide (groups A, C, Y and W-135) conjugate vaccine (MCV4P) 2015-04-13 00:00:00 Completed [facility] TDAP (ADACEL) VACCINE 2015-04-13 00:00:00 Completed [facility] HPV 2015-04-13 00:00:00 Completed [facility] Meningococcal Polysaccharide (groups A, C, Y and W-135) conjugate vaccine (MCV4P) 2015-04-13 00:00:00 Completed [facility] TDAP (ADACEL) VACCINE 2015-04-13 00:00:00 Completed [facility] HPV 2015-04-13 00:00:00 Completed [facility] HPV 2015-04-13 00:00:00 Completed [facility] Meningococcal Polysaccharide (groups A, C, Y and W-135) conjugate vaccine (MCV4P) 2015-04-13 00:00:00 Completed [facility] TDAP (ADACEL) VACCINE 2015-04-13 00:00:00 Completed [facility] Meningococcal Polysaccharide (groups A, C, Y and W-135) conjugate vaccine (MCV4P) 2015-04-13 00:00:00 Completed [facility] TDAP (ADACEL) VACCINE 2015-04-13 00:00:00 Completed [facility] HPV 2015-04-13 00:00:00 Completed [facility] Meningococcal Polysaccharide (groups A, C, Y and W-135) conjugate vaccine (MCV4P) 2015-04-13 00:00:00 Completed [facility] TDAP (ADACEL) VACCINE 2015-04-13 00:00:00 Completed [facility] HPV 2015-04-13 00:00:00 Completed [facility] Meningococcal Polysaccharide (groups A, C, Y and W-135) conjugate vaccine (MCV4P) 2015-04-13 00:00:00 Completed [facility] TDAP (ADACEL) VACCINE 2015-04-13 00:00:00 Completed [facility] HPV 2015-04-13 00:00:00 Completed [facility] Meningococcal Polysaccharide (groups A, C, Y and W-135) conjugate vaccine (MCV4P) 2015-04-13 00:00:00 Completed [facility] TDAP (ADACEL) VACCINE 2015-04-13 00:00:00 Completed [facility] HPV 2015-04-13 00:00:00 Completed [facility] Meningococcal Polysaccharide (groups A, C, Y and W-135) conjugate vaccine (MCV4P) 2015-04-13 00:00:00 Completed [facility] TDAP (ADACEL) VACCINE 2015-04-13 00:00:00 Completed [facility] HPV 2015-04-13 00:00:00 Completed [facility] Meningococcal Polysaccharide (groups A, C, Y and W-135) conjugate vaccine (MCV4P) 2015-04-13 00:00:00 Completed [facility] TDAP (ADACEL) VACCINE 2015-04-13 00:00:00 Completed [facility] HPV 2015-04-13 00:00:00 Completed [facility] Meningococcal Polysaccharide (groups A, C, Y and W-135) conjugate vaccine (MCV4P) 2015-04-13 00:00:00 Completed [facility] TDAP (ADACEL) VACCINE 2015-04-13 00:00:00 Completed [facility] HPV 2015-04-13 00:00:00 Completed [facility] Meningococcal Polysaccharide (groups A, C, Y and W-135) conjugate vaccine (MCV4P) 2015-04-13 00:00:00 Completed [facility] TDAP (ADACEL) VACCINE 2015-04-13 00:00:00 Completed [facility] HPV 2015-04-13 00:00:00 Completed [facility] Meningococcal Polysaccharide (groups A, C, Y and W-135) conjugate vaccine (MCV4P) 2015-04-13 00:00:00 Completed [facility] TDAP (ADACEL) VACCINE 2015-04-13 00:00:00 Completed [facility] HPV 2015-04-13 00:00:00 Completed [facility] Meningococcal Polysaccharide (groups A, C, Y and W-135) conjugate vaccine (MCV4P) 2015-04-13 00:00:00 Completed [facility] TDAP (ADACEL) VACCINE 2015-04-13 00:00:00 Completed [facility] HPV 2015-04-13 00:00:00 Completed [facility] Meningococcal Polysaccharide (groups A, C, Y and W-135) conjugate vaccine (MCV4P) 2015-04-13 00:00:00 Completed [facility] TDAP (ADACEL) VACCINE 2015-04-13 00:00:00 Completed [facility] HPV 2015-04-13 00:00:00 Completed [facility] Meningococcal Polysaccharide (groups A, C, Y and W-135) conjugate vaccine (MCV4P) 2015-04-13 00:00:00 Completed [facility] TDAP (ADACEL) VACCINE 2015-04-13 00:00:00 Completed [facility] HPV 2015-04-13 00:00:00 Completed [facility] Meningococcal Polysaccharide (groups A, C, Y and W-135) conjugate vaccine (MCV4P) 2015-04-13 00:00:00 Completed [facility] TDAP (ADACEL) VACCINE 2015-04-13 00:00:00 Completed [facility] HPV 2015-04-13 00:00:00 Completed [facility] Meningococcal Polysaccharide (groups A, C, Y and W-135) conjugate vaccine (MCV4P) 2015-04-13 00:00:00 Completed [facility] TDAP (ADACEL) VACCINE 2015-04-13 00:00:00 Completed [facility] HPV 2015-04-13 00:00:00 Completed [facility] Meningococcal Polysaccharide (groups A, C, Y and W-135) conjugate vaccine (MCV4P) 2015-04-13 00:00:00 Completed [facility] TDAP (ADACEL) VACCINE 2015-04-13 00:00:00 Completed [facility] HPV 2015-04-13 00:00:00 Completed [facility] Meningococcal Polysaccharide (groups A, C, Y and W-135) conjugate vaccine (MCV4P) 2015-04-13 00:00:00 Completed [facility] HPV 2015-04-13 00:00:00 Completed [facility] Meningococcal Polysaccharide (groups A, C, Y and W-135) conjugate vaccine (MCV4P) 2015-04-13 00:00:00 Completed [facility] TDAP (ADACEL) VACCINE 2015-04-13 00:00:00 Completed [facility] TDAP (ADACEL) VACCINE 2015-04-13 00:00:00 Completed [facility] HPV 2015-04-13 00:00:00 Completed [facility] Meningococcal Polysaccharide (groups A, C, Y and W-135) conjugate vaccine (MCV4P) 2015-04-13 00:00:00 Completed [facility] TDAP (ADACEL) VACCINE 2015-04-13 00:00:00 Completed [facility] HPV 2015-04-13 00:00:00 Completed [facility] Meningococcal Polysaccharide (groups A, C, Y and W-135) conjugate vaccine (MCV4P) 2015-04-13 00:00:00 Completed [facility] TDAP (ADACEL) VACCINE 2015-04-13 00:00:00 Completed [facility] HPV 2015-04-13 00:00:00 Completed [facility] Meningococcal Polysaccharide (groups A, C, Y and W-135) conjugate vaccine (MCV4P) 2015-04-13 00:00:00 Completed [facility] TDAP (ADACEL) VACCINE 2015-04-13 00:00:00 Completed [facility] HPV 2015-04-13 00:00:00 Completed [facility] Meningococcal Polysaccharide (groups A, C, Y and W-135) conjugate vaccine (MCV4P) 2015-04-13 00:00:00 Completed [facility] TDAP (ADACEL) VACCINE 2015-04-13 00:00:00 Completed [facility] HPV 2015-04-13 00:00:00 Completed [facility] Meningococcal Polysaccharide (groups A, C, Y and W-135) conjugate vaccine (MCV4P) 2015-04-13 00:00:00 Completed [facility] TDAP (ADACEL) VACCINE 2015-04-13 00:00:00 Completed [facility] HPV 2015-04-13 00:00:00 Completed [facility] Meningococcal Polysaccharide (groups A, C, Y and W-135) conjugate vaccine (MCV4P) 2015-04-13 00:00:00 Completed [facility] TDAP (ADACEL) VACCINE 2015-04-13 00:00:00 Completed [facility] HPV 2015-04-13 00:00:00 Completed [facility] Meningococcal Polysaccharide (groups A, C, Y and W-135) conjugate vaccine (MCV4P) 2015-04-13 00:00:00 Completed [facility] TDAP (ADACEL) VACCINE 2015-04-13 00:00:00 Completed [facility] HPV 2015-04-13 00:00:00 Completed [facility] Meningococcal Polysaccharide (groups A, C, Y and W-135) conjugate vaccine (MCV4P) 2015-04-13 00:00:00 Completed [facility] HPV 2015-04-13 00:00:00 Completed [facility] Meningococcal Polysaccharide (groups A, C, Y and W-135) conjugate vaccine (MCV4P) 2015-04-13 00:00:00 Completed [facility] TDAP (ADACEL) VACCINE 2015-04-13 00:00:00 Completed [facility] TDAP (ADACEL) VACCINE 2015-04-13 00:00:00 Completed [facility] HPV 2015-04-13 00:00:00 Completed [facility] Meningococcal Polysaccharide (groups A, C, Y and W-135) conjugate vaccine (MCV4P) 2015-04-13 00:00:00 Completed [facility] TDAP (ADACEL) VACCINE 2015-04-13 00:00:00 Completed [facility] HPV 2015-04-13 00:00:00 Completed [facility] Meningococcal Polysaccharide (groups A, C, Y and W-135) conjugate vaccine (MCV4P) 2015-04-13 00:00:00 Completed [facility] TDAP (ADACEL) VACCINE 2015-04-13 00:00:00 Completed [facility] HPV 2015-04-13 00:00:00 Completed [facility] Meningococcal Polysaccharide (groups A, C, Y and W-135) conjugate vaccine (MCV4P) 2015-04-13 00:00:00 Completed [facility] TDAP (ADACEL) VACCINE 2015-04-13 00:00:00 Completed [facility] HPV 2015-04-13 00:00:00 Completed [facility] Meningococcal Polysaccharide (groups A, C, Y and W-135) conjugate vaccine (MCV4P) 2015-04-13 00:00:00 Completed [facility] TDAP (ADACEL) VACCINE 2015-04-13 00:00:00 Completed [facility] HPV 2015-04-13 00:00:00 Completed [facility] Meningococcal Polysaccharide (groups A, C, Y and W-135) conjugate vaccine (MCV4P) 2015-04-13 00:00:00 Completed [facility] TDAP (ADACEL) VACCINE 2015-04-13 00:00:00 Completed [facility] HPV 2015-04-13 00:00:00 Completed [facility] Meningococcal Polysaccharide (groups A, C, Y and W-135) conjugate vaccine (MCV4P) 2015-04-13 00:00:00 Completed [facility] TDAP (ADACEL) VACCINE 2015-04-13 00:00:00 Completed [facility] HPV 2015-04-13 00:00:00 Completed [facility] Meningococcal Polysaccharide (groups A, C, Y and W-135) conjugate vaccine (MCV4P) 2015-04-13 00:00:00 Completed [facility] TDAP (ADACEL) VACCINE 2015-04-13 00:00:00 Completed [facility] HPV 2015-04-13 00:00:00 Completed [facility] Meningococcal Polysaccharide (groups A, C, Y and W-135) conjugate vaccine (MCV4P) 2015-04-13 00:00:00 Completed [facility] TDAP (ADACEL) VACCINE 2015-04-13 00:00:00 Completed [facility] HPV 2012-06-29 00:00:00 Completed [facility] HPV 2012-06-29 00:00:00 Completed [facility] HPV 2012-06-29 00:00:00 Completed [facility] HPV 2012-06-29 00:00:00 Completed [facility] HPV 2012-06-29 00:00:00 Completed [facility] HPV 2012-06-29 00:00:00 Completed [facility] HPV 2012-06-29 00:00:00 Completed [facility] HPV 2012-06-29 00:00:00 Completed [facility] HPV 2012-06-29 00:00:00 Completed [facility] HPV 2012-06-29 00:00:00 Completed [facility] HPV 2012-06-29 00:00:00 Completed [facility] HPV 2012-06-29 00:00:00 Completed [facility] HPV 2012-06-29 00:00:00 Completed [facility] HPV 2012-06-29 00:00:00 Completed [facility] HPV 2012-06-29 00:00:00 Completed [facility] HPV 2012-06-29 00:00:00 Completed [facility] HPV 2012-06-29 00:00:00 Completed [facility] HPV 2012-06-29 00:00:00 Completed [facility] HPV 2012-06-29 00:00:00 Completed [facility] HPV 2012-06-29 00:00:00 Completed [facility] HPV 2012-06-29 00:00:00 Completed [facility] HPV 2012-06-29 00:00:00 Completed [facility] HPV 2012-06-29 00:00:00 Completed [facility] HPV 2012-06-29 00:00:00 Completed [facility] Tetanus/Diptheria 2009-12-12 00:00:00 Completed [facility] Meningococcal Polysaccharide (groups A, C, Y and W-135) conjugate vaccine (MCV4P) 2009-12-12 00:00:00 Completed [facility] Varicella (varivax)(chicken pox) 2009-12-12 00:00:00 Completed [facility] HEPATITIS A 2009-12-12 00:00:00 Completed [facility] Tetanus/Diptheria 2009-12-12 00:00:00 Completed [facility] Meningococcal Polysaccharide (groups A, C, Y and W-135) conjugate vaccine (MCV4P) 2009-12-12 00:00:00 Completed [facility] Varicella (varivax)(chicken pox) 2009-12-12 00:00:00 Completed [facility] HEPATITIS A 2009-12-12 00:00:00 Completed [facility] Tetanus/Diptheria 2009-12-12 00:00:00 Completed [facility] Meningococcal Polysaccharide (groups A, C, Y and W-135) conjugate vaccine (MCV4P) 2009-12-12 00:00:00 Completed [facility] Varicella (varivax)(chicken pox) 2009-12-12 00:00:00 Completed [facility] HEPATITIS A 2009-12-12 00:00:00 Completed [facility] Tetanus/Diptheria 2009-12-12 00:00:00 Completed [facility] Meningococcal Polysaccharide (groups A, C, Y and W-135) conjugate vaccine (MCV4P) 2009-12-12 00:00:00 Completed [facility] Varicella (varivax)(chicken pox) 2009-12-12 00:00:00 Completed [facility] HEPATITIS A 2009-12-12 00:00:00 Completed [facility] Tetanus/Diptheria 2009-12-12 00:00:00 Completed [facility] Meningococcal Polysaccharide (groups A, C, Y and W-135) conjugate vaccine (MCV4P) 2009-12-12 00:00:00 Completed [facility] Varicella (varivax)(chicken pox) 2009-12-12 00:00:00 Completed [facility] HEPATITIS A 2009-12-12 00:00:00 Completed [facility] Tetanus/Diptheria 2009-12-12 00:00:00 Completed [facility] Meningococcal Polysaccharide (groups A, C, Y and W-135) conjugate vaccine (MCV4P) 2009-12-12 00:00:00 Completed [facility] Varicella (varivax)(chicken pox) 2009-12-12 00:00:00 Completed [facility] HEPATITIS A 2009-12-12 00:00:00 Completed [facility] Tetanus/Diptheria 2009-12-12 00:00:00 Completed [facility] Meningococcal Polysaccharide (groups A, C, Y and W-135) conjugate vaccine (MCV4P) 2009-12-12 00:00:00 Completed [facility] Varicella (varivax)(chicken pox) 2009-12-12 00:00:00 Completed [facility] HEPATITIS A 2009-12-12 00:00:00 Completed [facility] Tetanus/Diptheria 2009-12-12 00:00:00 Completed [facility] Meningococcal Polysaccharide (groups A, C, Y and W-135) conjugate vaccine (MCV4P) 2009-12-12 00:00:00 Completed [facility] Varicella (varivax)(chicken pox) 2009-12-12 00:00:00 Completed [facility] HEPATITIS A 2009-12-12 00:00:00 Completed [facility] Tetanus/Diptheria 2009-12-12 00:00:00 Completed [facility] Meningococcal Polysaccharide (groups A, C, Y and W-135) conjugate vaccine (MCV4P) 2009-12-12 00:00:00 Completed [facility] Varicella (varivax)(chicken pox) 2009-12-12 00:00:00 Completed [facility] Meningococcal Polysaccharide (groups A, C, Y and W-135) conjugate vaccine (MCV4P) 2009-12-12 00:00:00 Completed [facility] Varicella (varivax)(chicken pox) 2009-12-12 00:00:00 Completed [facility] Meningococcal Polysaccharide (groups A, C, Y and W-135) conjugate vaccine (MCV4P) 2009-12-12 00:00:00 Completed [facility] Varicella (varivax)(chicken pox) 2009-12-12 00:00:00 Completed [facility] Meningococcal Polysaccharide (groups A, C, Y and W-135) conjugate vaccine (MCV4P) 2009-12-12 00:00:00 Completed [facility] Varicella (varivax)(chicken pox) 2009-12-12 00:00:00 Completed [facility] HEPATITIS A 2009-12-12 00:00:00 Completed [facility] Tetanus/Diptheria 2009-12-12 00:00:00 Completed [facility] Meningococcal Polysaccharide (groups A, C, Y and W-135) conjugate vaccine (MCV4P) 2009-12-12 00:00:00 Completed [facility] Varicella (varivax)(chicken pox) 2009-12-12 00:00:00 Completed [facility] HEPATITIS A 2009-12-12 00:00:00 Completed [facility] Tetanus/Diptheria 2009-12-12 00:00:00 Completed [facility] Meningococcal Polysaccharide (groups A, C, Y and W-135) conjugate vaccine (MCV4P) 2009-12-12 00:00:00 Completed [facility] Varicella (varivax)(chicken pox) 2009-12-12 00:00:00 Completed [facility] HEPATITIS A 2009-12-12 00:00:00 Completed [facility] Tetanus/Diptheria 2009-12-12 00:00:00 Completed [facility] Meningococcal Polysaccharide (groups A, C, Y and W-135) conjugate vaccine (MCV4P) 2009-12-12 00:00:00 Completed [facility] Varicella (varivax)(chicken pox) 2009-12-12 00:00:00 Completed [facility] HEPATITIS A 2009-12-12 00:00:00 Completed [facility] Tetanus/Diptheria 2009-12-12 00:00:00 Completed [facility] Meningococcal Polysaccharide (groups A, C, Y and W-135) conjugate vaccine (MCV4P) 2009-12-12 00:00:00 Completed [facility] Varicella (varivax)(chicken pox) 2009-12-12 00:00:00 Completed [facility] HEPATITIS A 2009-12-12 00:00:00 Completed [facility] Tetanus/Diptheria 2009-12-12 00:00:00 Completed [facility] Meningococcal Polysaccharide (groups A, C, Y and W-135) conjugate vaccine (MCV4P) 2009-12-12 00:00:00 Completed [facility] Varicella (varivax)(chicken pox) 2009-12-12 00:00:00 Completed [facility] HEPATITIS A 2009-12-12 00:00:00 Completed [facility] Tetanus/Diptheria 2009-12-12 00:00:00 Completed [facility] Meningococcal Polysaccharide (groups A, C, Y and W-135) conjugate vaccine (MCV4P) 2009-12-12 00:00:00 Completed [facility] Varicella (varivax)(chicken pox) 2009-12-12 00:00:00 Completed [facility] HEPATITIS A 2009-12-12 00:00:00 Completed [facility] Tetanus/Diptheria 2009-12-12 00:00:00 Completed [facility] Meningococcal Polysaccharide (groups A, C, Y and W-135) conjugate vaccine (MCV4P) 2009-12-12 00:00:00 Completed [facility] Varicella (varivax)(chicken pox) 2009-12-12 00:00:00 Completed [facility] HEPATITIS A 2009-12-12 00:00:00 Completed [facility] Tetanus/Diptheria 2009-12-12 00:00:00 Completed [facility] Meningococcal Polysaccharide (groups A, C, Y and W-135) conjugate vaccine (MCV4P) 2009-12-12 00:00:00 Completed [facility] Varicella (varivax)(chicken pox) 2009-12-12 00:00:00 Completed [facility] HEPATITIS A 2009-12-12 00:00:00 Completed [facility] Tetanus/Diptheria 2009-12-12 00:00:00 Completed [facility] Meningococcal Polysaccharide (groups A, C, Y and W-135) conjugate vaccine (MCV4P) 2009-12-12 00:00:00 Completed [facility] Varicella (varivax)(chicken pox) 2009-12-12 00:00:00 Completed [facility] HEPATITIS A 2009-12-12 00:00:00 Completed [facility] Tetanus/Diptheria 2009-12-12 00:00:00 Completed [facility] Meningococcal Polysaccharide (groups A, C, Y and W-135) conjugate vaccine (MCV4P) 2009-12-12 00:00:00 Completed [facility] Varicella (varivax)(chicken pox) 2009-12-12 00:00:00 Completed [facility] HEPATITIS A 2009-12-12 00:00:00 Completed [facility] Tetanus/Diptheria 2009-12-12 00:00:00 Completed [facility] Meningococcal Polysaccharide (groups A, C, Y and W-135) conjugate vaccine (MCV4P) 2009-12-12 00:00:00 Completed [facility] Varicella (varivax)(chicken pox) 2009-12-12 00:00:00 Completed [facility] HEPATITIS A 2009-12-12 00:00:00 Completed [facility] Tetanus/Diptheria 2009-12-12 00:00:00 Completed [facility] Meningococcal Polysaccharide (groups A, C, Y and W-135) conjugate vaccine (MCV4P) 2009-12-12 00:00:00 Completed [facility] Varicella (varivax)(chicken pox) 2009-12-12 00:00:00 Completed [facility] HEPATITIS A 2009-12-12 00:00:00 Completed [facility] DTaP, Unspecified Formulation 2003-04-28 00:00:00 Completed [facility] MMR 2003-04-28 00:00:00 Completed [facility] IPV 2003-04-28 00:00:00 Completed [facility] DTaP, Unspecified Formulation 2003-04-28 00:00:00 Completed [facility] MMR 2003-04-28 00:00:00 Completed [facility] IPV 2003-04-28 00:00:00 Completed [facility] DTaP, Unspecified Formulation 2003-04-28 00:00:00 Completed [facility] MMR 2003-04-28 00:00:00 Completed [facility] IPV 2003-04-28 00:00:00 Completed [facility] DTaP, Unspecified Formulation 2003-04-28 00:00:00 Completed [facility] MMR 2003-04-28 00:00:00 Completed [facility] IPV 2003-04-28 00:00:00 Completed [facility] DTaP, Unspecified Formulation 2003-04-28 00:00:00 Completed [facility] MMR 2003-04-28 00:00:00 Completed [facility] IPV 2003-04-28 00:00:00 Completed [facility] DTaP, Unspecified Formulation 2003-04-28 00:00:00 Completed [facility] MMR 2003-04-28 00:00:00 Completed [facility] IPV 2003-04-28 00:00:00 Completed [facility] DTaP, Unspecified Formulation 2003-04-28 00:00:00 Completed [facility] MMR 2003-04-28 00:00:00 Completed [facility] IPV 2003-04-28 00:00:00 Completed [facility] DTaP, Unspecified Formulation 2003-04-28 00:00:00 Completed [facility] MMR 2003-04-28 00:00:00 Completed [facility] IPV 2003-04-28 00:00:00 Completed [facility] DTaP, Unspecified Formulation 2003-04-28 00:00:00 Completed [facility] MMR 2003-04-28 00:00:00 Completed [facility] IPV 2003-04-28 00:00:00 Completed [facility] DTaP, Unspecified Formulation 2003-04-28 00:00:00 Completed [facility] MMR 2003-04-28 00:00:00 Completed [facility] IPV 2003-04-28 00:00:00 Completed [facility] DTaP, Unspecified Formulation 2003-04-28 00:00:00 Completed [facility] MMR 2003-04-28 00:00:00 Completed [facility] IPV 2003-04-28 00:00:00 Completed [facility] DTaP, Unspecified Formulation 2003-04-28 00:00:00 Completed [facility] MMR 2003-04-28 00:00:00 Completed [facility] IPV 2003-04-28 00:00:00 Completed [facility] DTaP, Unspecified Formulation 2003-04-28 00:00:00 Completed [facility] MMR 2003-04-28 00:00:00 Completed [facility] IPV 2003-04-28 00:00:00 Completed [facility] DTaP, Unspecified Formulation 2003-04-28 00:00:00 Completed [facility] MMR 2003-04-28 00:00:00 Completed [facility] IPV 2003-04-28 00:00:00 Completed [facility] DTaP, Unspecified Formulation 2003-04-28 00:00:00 Completed [facility] MMR 2003-04-28 00:00:00 Completed [facility] IPV 2003-04-28 00:00:00 Completed [facility] DTaP, Unspecified Formulation 2003-04-28 00:00:00 Completed [facility] MMR 2003-04-28 00:00:00 Completed [facility] IPV 2003-04-28 00:00:00 Completed [facility] DTaP, Unspecified Formulation 2003-04-28 00:00:00 Completed [facility] MMR 2003-04-28 00:00:00 Completed [facility] IPV 2003-04-28 00:00:00 Completed [facility] DTaP, Unspecified Formulation 2003-04-28 00:00:00 Completed [facility] MMR 2003-04-28 00:00:00 Completed [facility] IPV 2003-04-28 00:00:00 Completed [facility] DTaP, Unspecified Formulation 2003-04-28 00:00:00 Completed [facility] MMR 2003-04-28 00:00:00 Completed [facility] IPV 2003-04-28 00:00:00 Completed [facility] DTaP, Unspecified Formulation 2003-04-28 00:00:00 Completed [facility] MMR 2003-04-28 00:00:00 Completed [facility] IPV 2003-04-28 00:00:00 Completed [facility] DTaP, Unspecified Formulation 2003-04-28 00:00:00 Completed [facility] MMR 2003-04-28 00:00:00 Completed [facility] IPV 2003-04-28 00:00:00 Completed [facility] HIB 4 Dose Schedule 2002-11-11 00:00:00 Completed [facility] Hep B, Adol or Pedi Dosage 2002-11-11 00:00:00 Completed [facility] MMR 2002-11-11 00:00:00 Completed [facility] DTaP, Unspecified Formulation 2002-11-11 00:00:00 Completed [facility] Polio (IPV/OPV) 2002-11-11 00:00:00 Completed [facility] IPV 2002-11-11 00:00:00 Completed [facility] Varicella (varivax)(chicken pox) 2002-11-11 00:00:00 Completed [facility] DTAP 2002-11-11 00:00:00 Completed [facility] Hep B, Adol or Pedi Dosage 2002-11-11 00:00:00 Completed [facility] HIB 4 Dose Schedule 2002-11-11 00:00:00 Completed [facility] DTaP, Unspecified Formulation 2002-11-11 00:00:00 Completed [facility] Polio (IPV/OPV) 2002-11-11 00:00:00 Completed [facility] IPV 2002-11-11 00:00:00 Completed [facility] MMR 2002-11-11 00:00:00 Completed [facility] Varicella (varivax)(chicken pox) 2002-11-11 00:00:00 Completed [facility] DTaP, Unspecified Formulation 2002-11-11 00:00:00 Completed [facility] IPV 2002-11-11 00:00:00 Completed [facility] DTaP, Unspecified Formulation 2002-11-11 00:00:00 Completed [facility] IPV 2002-11-11 00:00:00 Completed [facility] DTaP, Unspecified Formulation 2002-11-11 00:00:00 Completed [facility] IPV 2002-11-11 00:00:00 Completed [facility] DTAP 2002-11-11 00:00:00 Completed [facility] HIB 4 Dose Schedule 2002-11-11 00:00:00 Completed [facility] Hep B, Adol or Pedi Dosage 2002-11-11 00:00:00 Completed [facility] DTaP, Unspecified Formulation 2002-11-11 00:00:00 Completed [facility] MMR 2002-11-11 00:00:00 Completed [facility] IPV 2002-11-11 00:00:00 Completed [facility] Polio (IPV/OPV) 2002-11-11 00:00:00 Completed [facility] Varicella (varivax)(chicken pox) 2002-11-11 00:00:00 Completed [facility] DTAP 2002-11-11 00:00:00 Completed [facility] Hep B, Adol or Pedi Dosage 2002-11-11 00:00:00 Completed [facility] DTaP, Unspecified Formulation 2002-11-11 00:00:00 Completed [facility] HIB 4 Dose Schedule 2002-11-11 00:00:00 Completed [facility] IPV 2002-11-11 00:00:00 Completed [facility] Polio (IPV/OPV) 2002-11-11 00:00:00 Completed [facility] MMR 2002-11-11 00:00:00 Completed [facility] DTaP, Unspecified Formulation 2002-11-11 00:00:00 Completed [facility] Varicella (varivax)(chicken pox) 2002-11-11 00:00:00 Completed [facility] IPV 2002-11-11 00:00:00 Completed [facility] DTAP 2002-11-11 00:00:00 Completed [facility] HIB 4 Dose Schedule 2002-11-11 00:00:00 Completed [facility] Hep B, Adol or Pedi Dosage 2002-11-11 00:00:00 Completed [facility] MMR 2002-11-11 00:00:00 Completed [facility] Polio (IPV/OPV) 2002-11-11 00:00:00 Completed [facility] Varicella (varivax)(chicken pox) 2002-11-11 00:00:00 Completed [facility] DTAP 2002-11-11 00:00:00 Completed [facility] Hep B, Adol or Pedi Dosage 2002-11-11 00:00:00 Completed [facility] HIB 4 Dose Schedule 2002-11-11 00:00:00 Completed [facility] Polio (IPV/OPV) 2002-11-11 00:00:00 Completed [facility] MMR 2002-11-11 00:00:00 Completed [facility] Varicella (varivax)(chicken pox) 2002-11-11 00:00:00 Completed [facility] DTAP 2002-11-11 00:00:00 Completed [facility] HIB 4 Dose Schedule 2002-11-11 00:00:00 Completed [facility] Hep B, Adol or Pedi Dosage 2002-11-11 00:00:00 Completed [facility] MMR 2002-11-11 00:00:00 Completed [facility] Polio (IPV/OPV) 2002-11-11 00:00:00 Completed [facility] Varicella (varivax)(chicken pox) 2002-11-11 00:00:00 Completed [facility] DTAP 2002-11-11 00:00:00 Completed [facility] Hep B, Adol or Pedi Dosage 2002-11-11 00:00:00 Completed [facility] HIB 4 Dose Schedule 2002-11-11 00:00:00 Completed [facility] Polio (IPV/OPV) 2002-11-11 00:00:00 Completed [facility] MMR 2002-11-11 00:00:00 Completed [facility] Varicella (varivax)(chicken pox) 2002-11-11 00:00:00 Completed [facility] DTAP 2002-11-11 00:00:00 Completed [facility] HIB 4 Dose Schedule 2002-11-11 00:00:00 Completed [facility] Hep B, Adol or Pedi Dosage 2002-11-11 00:00:00 Completed [facility] MMR 2002-11-11 00:00:00 Completed [facility] Polio (IPV/OPV) 2002-11-11 00:00:00 Completed [facility] Varicella (varivax)(chicken pox) 2002-11-11 00:00:00 Completed [facility] DTAP 2002-11-11 00:00:00 Completed [facility] Hep B, Adol or Pedi Dosage 2002-11-11 00:00:00 Completed [facility] HIB 4 Dose Schedule 2002-11-11 00:00:00 Completed [facility] Polio (IPV/OPV) 2002-11-11 00:00:00 Completed [facility] MMR 2002-11-11 00:00:00 Completed [facility] Varicella (varivax)(chicken pox) 2002-11-11 00:00:00 Completed [facility] DTAP 2002-11-11 00:00:00 Completed [facility] HIB 4 Dose Schedule 2002-11-11 00:00:00 Completed [facility] Hep B, Adol or Pedi Dosage 2002-11-11 00:00:00 Completed [facility] MMR 2002-11-11 00:00:00 Completed [facility] Polio (IPV/OPV) 2002-11-11 00:00:00 Completed [facility] Varicella (varivax)(chicken pox) 2002-11-11 00:00:00 Completed [facility] DTAP 2002-11-11 00:00:00 Completed [facility] Hep B, Adol or Pedi Dosage 2002-11-11 00:00:00 Completed [facility] HIB 4 Dose Schedule 2002-11-11 00:00:00 Completed [facility] Polio (IPV/OPV) 2002-11-11 00:00:00 Completed [facility] MMR 2002-11-11 00:00:00 Completed [facility] Varicella (varivax)(chicken pox) 2002-11-11 00:00:00 Completed [facility] DTAP 2002-11-11 00:00:00 Completed [facility] DTAP 2002-11-11 00:00:00 Completed [facility] HIB 4 Dose Schedule 2002-11-11 00:00:00 Completed [facility] HIB 4 Dose Schedule 2002-11-11 00:00:00 Completed [facility] Hep B, Adol or Pedi Dosage 2002-11-11 00:00:00 Completed [facility] MMR 2002-11-11 00:00:00 Completed [facility] Polio (IPV/OPV) 2002-11-11 00:00:00 Completed [facility] Varicella (varivax)(chicken pox) 2002-11-11 00:00:00 Completed [facility] DTAP 2002-11-11 00:00:00 Completed [facility] Hep B, Adol or Pedi Dosage 2002-11-11 00:00:00 Completed [facility] HIB 4 Dose Schedule 2002-11-11 00:00:00 Completed [facility] Polio (IPV/OPV) 2002-11-11 00:00:00 Completed [facility] MMR 2002-11-11 00:00:00 Completed [facility] Hep B, Adol or Pedi Dosage 2002-11-11 00:00:00 Completed [facility] Varicella (varivax)(chicken pox) 2002-11-11 00:00:00 Completed [facility] MMR 2002-11-11 00:00:00 Completed [facility] DTAP 2002-11-11 00:00:00 Completed [facility] HIB 4 Dose Schedule 2002-11-11 00:00:00 Completed [facility] Hep B, Adol or Pedi Dosage 2002-11-11 00:00:00 Completed [facility] MMR 2002-11-11 00:00:00 Completed [facility] Polio (IPV/OPV) 2002-11-11 00:00:00 Completed [facility] Varicella (varivax)(chicken pox) 2002-11-11 00:00:00 Completed [facility] Polio (IPV/OPV) 2002-11-11 00:00:00 Completed [facility] DTAP 2002-11-11 00:00:00 Completed [facility] Hep B, Adol or Pedi Dosage 2002-11-11 00:00:00 Completed [facility] HIB 4 Dose Schedule 2002-11-11 00:00:00 Completed [facility] Polio (IPV/OPV) 2002-11-11 00:00:00 Completed [facility] MMR 2002-11-11 00:00:00 Completed [facility] Varicella (varivax)(chicken pox) 2002-11-11 00:00:00 Completed [facility] Varicella (varivax)(chicken pox) 2002-11-11 00:00:00 Completed [facility] DTAP 2002-11-11 00:00:00 Completed [facility] DTAP 2002-11-11 00:00:00 Completed [facility] HIB 4 Dose Schedule 2002-11-11 00:00:00 Completed [facility] Hep B, Adol or Pedi Dosage 2002-11-11 00:00:00 Completed [facility] MMR 2002-11-11 00:00:00 Completed [facility] Polio (IPV/OPV) 2002-11-11 00:00:00 Completed [facility] Varicella (varivax)(chicken pox) 2002-11-11 00:00:00 Completed [facility] DTAP 2002-11-11 00:00:00 Completed [facility] Hep B, Adol or Pedi Dosage 2002-11-11 00:00:00 Completed [facility] HIB 4 Dose Schedule 2002-11-11 00:00:00 Completed [facility] Hep B, Adol or Pedi Dosage 2002-11-11 00:00:00 Completed [facility] Polio (IPV/OPV) 2002-11-11 00:00:00 Completed [facility] MMR 2002-11-11 00:00:00 Completed [facility] Varicella (varivax)(chicken pox) 2002-11-11 00:00:00 Completed [facility] HIB 4 Dose Schedule 2002-11-11 00:00:00 Completed [facility] DTAP 2002-11-11 00:00:00 Completed [facility] HIB 4 Dose Schedule 2002-11-11 00:00:00 Completed [facility] Hep B, Adol or Pedi Dosage 2002-11-11 00:00:00 Completed [facility] MMR 2002-11-11 00:00:00 Completed [facility] Polio (IPV/OPV) 2002-11-11 00:00:00 Completed [facility] Varicella (varivax)(chicken pox) 2002-11-11 00:00:00 Completed [facility] Polio (IPV/OPV) 2002-11-11 00:00:00 Completed [facility] DTAP 2002-11-11 00:00:00 Completed [facility] Hep B, Adol or Pedi Dosage 2002-11-11 00:00:00 Completed [facility] HIB 4 Dose Schedule 2002-11-11 00:00:00 Completed [facility] Polio (IPV/OPV) 2002-11-11 00:00:00 Completed [facility] MMR 2002-11-11 00:00:00 Completed [facility] Varicella (varivax)(chicken pox) 2002-11-11 00:00:00 Completed [facility] MMR 2002-11-11 00:00:00 Completed [facility] Varicella (varivax)(chicken pox) 2002-11-11 00:00:00 Completed [facility] DTAP 2002-11-11 00:00:00 Completed [facility] HIB 4 Dose Schedule 2002-11-11 00:00:00 Completed [facility] Hep B, Adol or Pedi Dosage 2002-11-11 00:00:00 Completed [facility] MMR 2002-11-11 00:00:00 Completed [facility] Polio (IPV/OPV) 2002-11-11 00:00:00 Completed [facility] Varicella (varivax)(chicken pox) 2002-11-11 00:00:00 Completed [facility] DTAP 2002-11-11 00:00:00 Completed [facility] Hep B, Adol or Pedi Dosage 2002-11-11 00:00:00 Completed [facility] HIB 4 Dose Schedule 2002-11-11 00:00:00 Completed [facility] Polio (IPV/OPV) 2002-11-11 00:00:00 Completed [facility] MMR 2002-11-11 00:00:00 Completed [facility] Varicella (varivax)(chicken pox) 2002-11-11 00:00:00 Completed [facility] DTAP 2002-11-11 00:00:00 Completed [facility] HIB 4 Dose Schedule 2002-11-11 00:00:00 Completed [facility] Hep B, Adol or Pedi Dosage 2002-11-11 00:00:00 Completed [facility] MMR 2002-11-11 00:00:00 Completed [facility] Polio (IPV/OPV) 2002-11-11 00:00:00 Completed [facility] Varicella (varivax)(chicken pox) 2002-11-11 00:00:00 Completed [facility] DTAP 2002-11-11 00:00:00 Completed [facility] Hep B, Adol or Pedi Dosage 2002-11-11 00:00:00 Completed [facility] HIB 4 Dose Schedule 2002-11-11 00:00:00 Completed [facility] Polio (IPV/OPV) 2002-11-11 00:00:00 Completed [facility] MMR 2002-11-11 00:00:00 Completed [facility] Varicella (varivax)(chicken pox) 2002-11-11 00:00:00 Completed [facility] DTAP 2002-11-11 00:00:00 Completed [facility] HIB 4 Dose Schedule 2002-11-11 00:00:00 Completed [facility] Hep B, Adol or Pedi Dosage 2002-11-11 00:00:00 Completed [facility] MMR 2002-11-11 00:00:00 Completed [facility] Polio (IPV/OPV) 2002-11-11 00:00:00 Completed [facility] Varicella (varivax)(chicken pox) 2002-11-11 00:00:00 Completed [facility] DTAP 2002-11-11 00:00:00 Completed [facility] Hep B, Adol or Pedi Dosage 2002-11-11 00:00:00 Completed [facility] HIB 4 Dose Schedule 2002-11-11 00:00:00 Completed [facility] Polio (IPV/OPV) 2002-11-11 00:00:00 Completed [facility] MMR 2002-11-11 00:00:00 Completed [facility] Varicella (varivax)(chicken pox) 2002-11-11 00:00:00 Completed [facility] DTaP, Unspecified Formulation 2002-11-11 00:00:00 Completed [facility] IPV 2002-11-11 00:00:00 Completed [facility] DTAP 2002-11-11 00:00:00 Completed [facility] HIB 4 Dose Schedule 2002-11-11 00:00:00 Completed [facility] DTaP, Unspecified Formulation 2002-11-11 00:00:00 Completed [facility] IPV 2002-11-11 00:00:00 Completed [facility] Hep B, Adol or Pedi Dosage 2002-11-11 00:00:00 Completed [facility] MMR 2002-11-11 00:00:00 Completed [facility] Polio (IPV/OPV) 2002-11-11 00:00:00 Completed [facility] DTaP, Unspecified Formulation 2002-11-11 00:00:00 Completed [facility] Varicella (varivax)(chicken pox) 2002-11-11 00:00:00 Completed [facility] IPV 2002-11-11 00:00:00 Completed [facility] DTAP 2002-11-11 00:00:00 Completed [facility] Hep B, Adol or Pedi Dosage 2002-11-11 00:00:00 Completed [facility] DTaP, Unspecified Formulation 2002-11-11 00:00:00 Completed [facility] HIB 4 Dose Schedule 2002-11-11 00:00:00 Completed [facility] IPV 2002-11-11 00:00:00 Completed [facility] Polio (IPV/OPV) 2002-11-11 00:00:00 Completed [facility] MMR 2002-11-11 00:00:00 Completed [facility] DTaP, Unspecified Formulation 2002-11-11 00:00:00 Completed [facility] Varicella (varivax)(chicken pox) 2002-11-11 00:00:00 Completed [facility] IPV 2002-11-11 00:00:00 Completed [facility] DTaP, Unspecified Formulation 2002-11-11 00:00:00 Completed [facility] IPV 2002-11-11 00:00:00 Completed [facility] DTaP, Unspecified Formulation 2002-11-11 00:00:00 Completed [facility] IPV 2002-11-11 00:00:00 Completed [facility] DTAP 2002-11-11 00:00:00 Completed [facility] HIB 4 Dose Schedule 2002-11-11 00:00:00 Completed [facility] DTaP, Unspecified Formulation 2002-11-11 00:00:00 Completed [facility] Hep B, Adol or Pedi Dosage 2002-11-11 00:00:00 Completed [facility] IPV 2002-11-11 00:00:00 Completed [facility] MMR 2002-11-11 00:00:00 Completed [facility] Polio (IPV/OPV) 2002-11-11 00:00:00 Completed [facility] DTaP, Unspecified Formulation 2002-11-11 00:00:00 Completed [facility] Varicella (varivax)(chicken pox) 2002-11-11 00:00:00 Completed [facility] IPV 2002-11-11 00:00:00 Completed [facility] DTAP 2002-11-11 00:00:00 Completed [facility] Hep B, Adol or Pedi Dosage 2002-11-11 00:00:00 Completed [facility] DTaP, Unspecified Formulation 2002-11-11 00:00:00 Completed [facility] HIB 4 Dose Schedule 2002-11-11 00:00:00 Completed [facility] IPV 2002-11-11 00:00:00 Completed [facility] Polio (IPV/OPV) 2002-11-11 00:00:00 Completed [facility] MMR 2002-11-11 00:00:00 Completed [facility] Varicella (varivax)(chicken pox) 2002-11-11 00:00:00 Completed [facility] DTaP, Unspecified Formulation 2002-11-11 00:00:00 Completed [facility] IPV 2002-11-11 00:00:00 Completed [facility] DTaP, Unspecified Formulation 2002-11-11 00:00:00 Completed [facility] IPV 2002-11-11 00:00:00 Completed [facility] DTaP, Unspecified Formulation 2002-11-11 00:00:00 Completed [facility] DTAP 2002-11-11 00:00:00 Completed [facility] IPV 2002-11-11 00:00:00 Completed [facility] Poliovirus, Live, Oral, Trivalent 1999-05-14 00:00:00 Completed [facility] DTaP, Unspecified Formulation 1999-05-14 00:00:00 Completed [facility] HIB 4 Dose Schedule 1999-05-14 00:00:00 Completed [facility] Poliovirus, Live, Oral, Trivalent 1999-05-14 00:00:00 Completed [facility] DTaP, Unspecified Formulation 1999-05-14 00:00:00 Completed [facility] HIB 4 Dose Schedule 1999-05-14 00:00:00 Completed [facility] Poliovirus, Live, Oral, Trivalent 1999-05-14 00:00:00 Completed [facility] DTaP, Unspecified Formulation 1999-05-14 00:00:00 Completed [facility] HIB 4 Dose Schedule 1999-05-14 00:00:00 Completed [facility] Poliovirus, Live, Oral, Trivalent 1999-05-14 00:00:00 Completed [facility] DTaP, Unspecified Formulation 1999-05-14 00:00:00 Completed [facility] HIB 4 Dose Schedule 1999-05-14 00:00:00 Completed [facility] Poliovirus, Live, Oral, Trivalent 1999-05-14 00:00:00 Completed [facility] DTaP, Unspecified Formulation 1999-05-14 00:00:00 Completed [facility] HIB 4 Dose Schedule 1999-05-14 00:00:00 Completed [facility] Poliovirus, Live, Oral, Trivalent 1999-05-14 00:00:00 Completed [facility] DTaP, Unspecified Formulation 1999-05-14 00:00:00 Completed [facility] HIB 4 Dose Schedule 1999-05-14 00:00:00 Completed [facility] Poliovirus, Live, Oral, Trivalent 1999-05-14 00:00:00 Completed [facility] DTaP, Unspecified Formulation 1999-05-14 00:00:00 Completed [facility] HIB 4 Dose Schedule 1999-05-14 00:00:00 Completed [facility] Poliovirus, Live, Oral, Trivalent 1999-05-14 00:00:00 Completed [facility] DTaP, Unspecified Formulation 1999-05-14 00:00:00 Completed [facility] HIB 4 Dose Schedule 1999-05-14 00:00:00 Completed [facility] Poliovirus, Live, Oral, Trivalent 1999-05-14 00:00:00 Completed [facility] DTaP, Unspecified Formulation 1999-05-14 00:00:00 Completed [facility] HIB 4 Dose Schedule 1999-05-14 00:00:00 Completed [facility] Poliovirus, Live, Oral, Trivalent 1999-05-14 00:00:00 Completed [facility] DTaP, Unspecified Formulation 1999-05-14 00:00:00 Completed [facility] HIB 4 Dose Schedule 1999-05-14 00:00:00 Completed [facility] Poliovirus, Live, Oral, Trivalent 1999-05-14 00:00:00 Completed [facility] DTaP, Unspecified Formulation 1999-05-14 00:00:00 Completed [facility] HIB 4 Dose Schedule 1999-05-14 00:00:00 Completed [facility] Poliovirus, Live, Oral, Trivalent 1999-05-14 00:00:00 Completed [facility] DTaP, Unspecified Formulation 1999-05-14 00:00:00 Completed [facility] HIB 4 Dose Schedule 1999-05-14 00:00:00 Completed [facility] Poliovirus, Live, Oral, Trivalent 1999-05-14 00:00:00 Completed [facility] DTaP, Unspecified Formulation 1999-05-14 00:00:00 Completed [facility] HIB 4 Dose Schedule 1999-05-14 00:00:00 Completed [facility] Poliovirus, Live, Oral, Trivalent 1999-05-14 00:00:00 Completed [facility] DTaP, Unspecified Formulation 1999-05-14 00:00:00 Completed [facility] HIB 4 Dose Schedule 1999-05-14 00:00:00 Completed [facility] Poliovirus, Live, Oral, Trivalent 1999-05-14 00:00:00 Completed [facility] DTaP, Unspecified Formulation 1999-05-14 00:00:00 Completed [facility] HIB 4 Dose Schedule 1999-05-14 00:00:00 Completed [facility] Poliovirus, Live, Oral, Trivalent 1999-05-14 00:00:00 Completed [facility] DTaP, Unspecified Formulation 1999-05-14 00:00:00 Completed [facility] HIB 4 Dose Schedule 1999-05-14 00:00:00 Completed [facility] Poliovirus, Live, Oral, Trivalent 1999-05-14 00:00:00 Completed [facility] DTaP, Unspecified Formulation 1999-05-14 00:00:00 Completed [facility] HIB 4 Dose Schedule 1999-05-14 00:00:00 Completed [facility] Poliovirus, Live, Oral, Trivalent 1999-05-14 00:00:00 Completed [facility] DTaP, Unspecified Formulation 1999-05-14 00:00:00 Completed [facility] HIB 4 Dose Schedule 1999-05-14 00:00:00 Completed [facility] Poliovirus, Live, Oral, Trivalent 1999-05-14 00:00:00 Completed [facility] DTaP, Unspecified Formulation 1999-05-14 00:00:00 Completed [facility] HIB 4 Dose Schedule 1999-05-14 00:00:00 Completed [facility] Poliovirus, Live, Oral, Trivalent 1999-05-14 00:00:00 Completed [facility] DTaP, Unspecified Formulation 1999-05-14 00:00:00 Completed [facility] HIB 4 Dose Schedule 1999-05-14 00:00:00 Completed [facility] Poliovirus, Live, Oral, Trivalent 1999-05-14 00:00:00 Completed [facility] DTaP, Unspecified Formulation 1999-05-14 00:00:00 Completed [facility] HIB 4 Dose Schedule 1999-05-14 00:00:00 Completed [facility] Poliovirus, Live, Oral, Trivalent 1999-01-26 00:00:00 Completed [facility] DTaP, Unspecified Formulation 1999-01-26 00:00:00 Completed [facility] Hep B, Adol or Pedi Dosage 1999-01-26 00:00:00 Completed [facility] HIB 4 Dose Schedule 1999-01-26 00:00:00 Completed [facility] Poliovirus, Live, Oral, Trivalent 1999-01-26 00:00:00 Completed [facility] DTaP, Unspecified Formulation 1999-01-26 00:00:00 Completed [facility] Hep B, Adol or Pedi Dosage 1999-01-26 00:00:00 Completed [facility] HIB 4 Dose Schedule 1999-01-26 00:00:00 Completed [facility] Poliovirus, Live, Oral, Trivalent 1999-01-26 00:00:00 Completed [facility] DTaP, Unspecified Formulation 1999-01-26 00:00:00 Completed [facility] Hep B, Adol or Pedi Dosage 1999-01-26 00:00:00 Completed [facility] HIB 4 Dose Schedule 1999-01-26 00:00:00 Completed [facility] Poliovirus, Live, Oral, Trivalent 1999-01-26 00:00:00 Completed [facility] DTaP, Unspecified Formulation 1999-01-26 00:00:00 Completed [facility] Hep B, Adol or Pedi Dosage 1999-01-26 00:00:00 Completed [facility] HIB 4 Dose Schedule 1999-01-26 00:00:00 Completed [facility] Poliovirus, Live, Oral, Trivalent 1999-01-26 00:00:00 Completed [facility] DTaP, Unspecified Formulation 1999-01-26 00:00:00 Completed [facility] Hep B, Adol or Pedi Dosage 1999-01-26 00:00:00 Completed [facility] HIB 4 Dose Schedule 1999-01-26 00:00:00 Completed [facility] Poliovirus, Live, Oral, Trivalent 1999-01-26 00:00:00 Completed [facility] DTaP, Unspecified Formulation 1999-01-26 00:00:00 Completed [facility] Hep B, Adol or Pedi Dosage 1999-01-26 00:00:00 Completed [facility] HIB 4 Dose Schedule 1999-01-26 00:00:00 Completed [facility] Poliovirus, Live, Oral, Trivalent 1999-01-26 00:00:00 Completed [facility] DTaP, Unspecified Formulation 1999-01-26 00:00:00 Completed [facility] Hep B, Adol or Pedi Dosage 1999-01-26 00:00:00 Completed [facility] HIB 4 Dose Schedule 1999-01-26 00:00:00 Completed [facility] Poliovirus, Live, Oral, Trivalent 1999-01-26 00:00:00 Completed [facility] DTaP, Unspecified Formulation 1999-01-26 00:00:00 Completed [facility] Hep B, Adol or Pedi Dosage 1999-01-26 00:00:00 Completed [facility] HIB 4 Dose Schedule 1999-01-26 00:00:00 Completed [facility] Poliovirus, Live, Oral, Trivalent 1999-01-26 00:00:00 Completed [facility] DTaP, Unspecified Formulation 1999-01-26 00:00:00 Completed [facility] Hep B, Adol or Pedi Dosage 1999-01-26 00:00:00 Completed [facility] HIB 4 Dose Schedule 1999-01-26 00:00:00 Completed [facility] Poliovirus, Live, Oral, Trivalent 1999-01-26 00:00:00 Completed [facility] DTaP, Unspecified Formulation 1999-01-26 00:00:00 Completed [facility] Hep B, Adol or Pedi Dosage 1999-01-26 00:00:00 Completed [facility] HIB 4 Dose Schedule 1999-01-26 00:00:00 Completed [facility] Poliovirus, Live, Oral, Trivalent 1999-01-26 00:00:00 Completed [facility] DTaP, Unspecified Formulation 1999-01-26 00:00:00 Completed [facility] Hep B, Adol or Pedi Dosage 1999-01-26 00:00:00 Completed [facility] HIB 4 Dose Schedule 1999-01-26 00:00:00 Completed [facility] Poliovirus, Live, Oral, Trivalent 1999-01-26 00:00:00 Completed [facility] DTaP, Unspecified Formulation 1999-01-26 00:00:00 Completed [facility] Hep B, Adol or Pedi Dosage 1999-01-26 00:00:00 Completed [facility] HIB 4 Dose Schedule 1999-01-26 00:00:00 Completed [facility] Poliovirus, Live, Oral, Trivalent 1999-01-26 00:00:00 Completed [facility] DTaP, Unspecified Formulation 1999-01-26 00:00:00 Completed [facility] Hep B, Adol or Pedi Dosage 1999-01-26 00:00:00 Completed [facility] HIB 4 Dose Schedule 1999-01-26 00:00:00 Completed [facility] Poliovirus, Live, Oral, Trivalent 1999-01-26 00:00:00 Completed [facility] DTaP, Unspecified Formulation 1999-01-26 00:00:00 Completed [facility] Hep B, Adol or Pedi Dosage 1999-01-26 00:00:00 Completed [facility] HIB 4 Dose Schedule 1999-01-26 00:00:00 Completed [facility] Poliovirus, Live, Oral, Trivalent 1999-01-26 00:00:00 Completed [facility] DTaP, Unspecified Formulation 1999-01-26 00:00:00 Completed [facility] Hep B, Adol or Pedi Dosage 1999-01-26 00:00:00 Completed [facility] HIB 4 Dose Schedule 1999-01-26 00:00:00 Completed [facility] Poliovirus, Live, Oral, Trivalent 1999-01-26 00:00:00 Completed [facility] DTaP, Unspecified Formulation 1999-01-26 00:00:00 Completed [facility] Hep B, Adol or Pedi Dosage 1999-01-26 00:00:00 Completed [facility] HIB 4 Dose Schedule 1999-01-26 00:00:00 Completed [facility] Poliovirus, Live, Oral, Trivalent 1999-01-26 00:00:00 Completed [facility] DTaP, Unspecified Formulation 1999-01-26 00:00:00 Completed [facility] Hep B, Adol or Pedi Dosage 1999-01-26 00:00:00 Completed [facility] HIB 4 Dose Schedule 1999-01-26 00:00:00 Completed [facility] Poliovirus, Live, Oral, Trivalent 1999-01-26 00:00:00 Completed [facility] DTaP, Unspecified Formulation 1999-01-26 00:00:00 Completed [facility] Hep B, Adol or Pedi Dosage 1999-01-26 00:00:00 Completed [facility] HIB 4 Dose Schedule 1999-01-26 00:00:00 Completed [facility] Poliovirus, Live, Oral, Trivalent 1999-01-26 00:00:00 Completed [facility] DTaP, Unspecified Formulation 1999-01-26 00:00:00 Completed [facility] Hep B, Adol or Pedi Dosage 1999-01-26 00:00:00 Completed [facility] HIB 4 Dose Schedule 1999-01-26 00:00:00 Completed [facility] Poliovirus, Live, Oral, Trivalent 1999-01-26 00:00:00 Completed [facility] DTaP, Unspecified Formulation 1999-01-26 00:00:00 Completed [facility] Hep B, Adol or Pedi Dosage 1999-01-26 00:00:00 Completed [facility] HIB 4 Dose Schedule 1999-01-26 00:00:00 Completed [facility] Poliovirus, Live, Oral, Trivalent 1999-01-26 00:00:00 Completed [facility] DTaP, Unspecified Formulation 1999-01-26 00:00:00 Completed [facility] Hep B, Adol or Pedi Dosage 1999-01-26 00:00:00 Completed [facility] HIB 4 Dose Schedule 1999-01-26 00:00:00 Completed [facility] Hep B, Adol or Pedi Dosage 1998 00:00:00 Completed [facility] Hep B, Adol or Pedi Dosage 1998 00:00:00 Completed [facility] Hep B, Adol or Pedi Dosage 1998 00:00:00 Completed [facility] Hep B, Adol or Pedi Dosage 1998 00:00:00 Completed [facility] Hep B, Adol or Pedi Dosage 1998 00:00:00 Completed [facility] Hep B, Adol or Pedi Dosage 1998 00:00:00 Completed [facility] Hep B, Adol or Pedi Dosage 1998 00:00:00 Completed [facility] Hep B, Adol or Pedi Dosage 1998 00:00:00 Completed [facility] Hep B, Adol or Pedi Dosage 1998 00:00:00 Completed [facility] Hep B, Adol or Pedi Dosage 1998 00:00:00 Completed [facility] Hep B, Adol or Pedi Dosage 1998 00:00:00 Completed [facility] Hep B, Adol or Pedi Dosage 1998 00:00:00 Completed [facility] Hep B, Adol or Pedi Dosage 1998 00:00:00 Completed [facility] Hep B, Adol or Pedi Dosage 1998 00:00:00 Completed [facility] Hep B, Adol or Pedi Dosage 1998 00:00:00 Completed [facility] Hep B, Adol or Pedi Dosage 1998 00:00:00 Completed [facility] Hep B, Adol or Pedi Dosage 1998 00:00:00 Completed [facility] Hep B, Adol or Pedi Dosage 1998 00:00:00 Completed [facility] Hep B, Adol or Pedi Dosage 1998 00:00:00 Completed [facility] Hep B, Adol or Pedi Dosage 1998 00:00:00 Completed [facility] Hep B, Adol or Pedi Dosage 1998 00:00:00 Completed [facility] HPV Unknown Completed [facility] Meningococcal Polysaccharide (groups A, C, Y and W-135) conjugate vaccine (MCV4P) Unknown Completed [facility] TDAP (ADACEL) VACCINE Unknown Completed [facility] Influenza Virus Vaccine Quad .5 mL IM 6+ MO (FLUZONE/FLULAVAL/FL UARIX) Unknown Completed [facility] TDAP (ADACEL) VACCINE Unknown Completed [facility] TDAP (ADACEL) VACCINE Unknown Completed [facility] Influenza Virus Vaccine Quad .5 mL IM 6+ MO (FLUZONE/FLULAVAL/FL UARIX) Unknown Completed [facility] HPV Unknown Completed [facility] Meningococcal Polysaccharide (groups A, C, Y and W-135) conjugate vaccine (MCV4P) Unknown Completed [facility] Varicella (varivax)(chicken pox) Unknown Completed [facility] SARS-COV-2 COVID-19 VACCINE - (MODERNA) Unknown Completed [facility] SARS-COV-2 COVID-19 VACCINE - (MODERNA) Unknown Completed [facility] DTaP, Unspecified Formulation Unknown Completed [facility] DTaP, Unspecified Formulation Unknown Completed [facility] DTaP, Unspecified Formulation Unknown Completed [facility] DTaP, Unspecified Formulation Unknown Completed [facility] HEPATITIS A Unknown Completed [facility] Hep B, Adol or Pedi Dosage Unknown Completed [facility] Hep B, Adol or Pedi Dosage Unknown Completed [facility] HIB 4 Dose Schedule Unknown Completed [facility] HIB 4 Dose Schedule Unknown Completed [facility] MMR Unknown Completed [facility] IPV Unknown Completed [facility] IPV Unknown Completed [facility] Poliovirus, Live, Oral, Trivalent Unknown Completed [facility] Poliovirus, Live, Oral, Trivalent Unknown Completed [facility] Tetanus/Diptheria Unknown Completed [facility] HPV Unknown Completed [facility] Meningococcal Polysaccharide (groups A, C, Y and W-135) conjugate vaccine (MCV4P) Unknown Completed [facility] TDAP (ADACEL) VACCINE Unknown Completed [facility] Influenza Virus Vaccine Quad .5 mL IM 6+ MO (FLUZONE/FLULAVAL/FL UARIX) Unknown Completed [facility] TDAP (ADACEL) VACCINE Unknown Completed [facility] TDAP (ADACEL) VACCINE Unknown Completed [facility] Influenza Virus Vaccine Quad .5 mL IM 6+ MO (FLUZONE/FLULAVAL/FL UARIX) Unknown Completed [facility] HPV Unknown Completed [facility] Meningococcal Polysaccharide (groups A, C, Y and W-135) conjugate vaccine (MCV4P) Unknown Completed [facility] Varicella (varivax)(chicken pox) Unknown Completed [facility] SARS-COV-2 COVID-19 VACCINE - (MODERNA) Unknown Completed [facility] SARS-COV-2 COVID-19 VACCINE - (MODERNA) Unknown Completed [facility] DTaP, Unspecified Formulation Unknown Completed [facility] DTaP, Unspecified Formulation Unknown Completed [facility] DTaP, Unspecified Formulation Unknown Completed [facility] DTaP, Unspecified Formulation Unknown Completed [facility] HEPATITIS A Unknown Completed [facility] Hep B, Adol or Pedi Dosage Unknown Completed [facility] Hep B, Adol or Pedi Dosage Unknown Completed [facility] HIB 4 Dose Schedule Unknown Completed [facility] HIB 4 Dose Schedule Unknown Completed [facility] MMR Unknown Completed [facility] IPV Unknown Completed [facility] IPV Unknown Completed [facility] Poliovirus, Live, Oral, Trivalent Unknown Completed [facility] Poliovirus, Live, Oral, Trivalent Unknown Completed [facility] Tetanus/Diptheria Unknown Completed [facility] HPV Unknown Completed [facility] Meningococcal Polysaccharide (groups A, C, Y and W-135) conjugate vaccine (MCV4P) Unknown Completed [facility] TDAP (ADACEL) VACCINE Unknown Completed [facility] Influenza Virus Vaccine Quad .5 mL IM 6+ MO (FLUZONE/FLULAVAL/FL UARIX) Unknown Completed [facility] TDAP (ADACEL) VACCINE Unknown Completed [facility] TDAP (ADACEL) VACCINE Unknown Completed [facility] Influenza Virus Vaccine Quad .5 mL IM 6+ MO (FLUZONE/FLULAVAL/FL UARIX) Unknown Completed [facility] HPV Unknown Completed [facility] Meningococcal Polysaccharide (groups A, C, Y and W-135) conjugate vaccine (MCV4P) Unknown Completed [facility] Varicella (varivax)(chicken pox) Unknown Completed [facility] SARS-COV-2 COVID-19 VACCINE - (MODERNA) Unknown Completed [facility] SARS-COV-2 COVID-19 VACCINE - (MODERNA) Unknown Completed [facility] DTaP, Unspecified Formulation Unknown Completed [facility] DTaP, Unspecified Formulation Unknown Completed [facility] DTaP, Unspecified Formulation Unknown Completed [facility] DTaP, Unspecified Formulation Unknown Completed [facility] HEPATITIS A Unknown Completed [facility] Hep B, Adol or Pedi Dosage Unknown Completed [facility] Hep B, Adol or Pedi Dosage Unknown Completed [facility] HIB 4 Dose Schedule Unknown Completed [facility] HIB 4 Dose Schedule Unknown Completed [facility] MMR Unknown Completed [facility] IPV Unknown Completed [facility] IPV Unknown Completed [facility] Poliovirus, Live, Oral, Trivalent Unknown Completed [facility] Poliovirus, Live, Oral, Trivalent Unknown Completed [facility] Tetanus/Diptheria Unknown Completed [facility] HPV Unknown Completed [facility] Meningococcal Polysaccharide (groups A, C, Y and W-135) conjugate vaccine (MCV4P) Unknown Completed [facility] TDAP (ADACEL) VACCINE Unknown Completed [facility] Influenza Virus Vaccine Quad .5 mL IM 6+ MO (FLUZONE/FLULAVAL/FL UARIX) Unknown Completed [facility] TDAP (ADACEL) VACCINE Unknown Completed [facility] TDAP (ADACEL) VACCINE Unknown Completed [facility] Influenza Virus Vaccine Quad .5 mL IM 6+ MO (FLUZONE/FLULAVAL/FL UARIX) Unknown Completed [facility] HPV Unknown Completed [facility] Meningococcal Polysaccharide (groups A, C, Y and W-135) conjugate vaccine (MCV4P) Unknown Completed [facility] Varicella (varivax)(chicken pox) Unknown Completed [facility] SARS-COV-2 COVID-19 VACCINE - (MODERNA) Unknown Completed [facility] SARS-COV-2 COVID-19 VACCINE - (MODERNA) Unknown Completed [facility] DTaP, Unspecified Formulation Unknown Completed [facility] DTaP, Unspecified Formulation Unknown Completed [facility] DTaP, Unspecified Formulation Unknown Completed [facility] DTaP, Unspecified Formulation Unknown Completed [facility] HEPATITIS A Unknown Completed [facility] Hep B, Adol or Pedi Dosage Unknown Completed [facility] Hep B, Adol or Pedi Dosage Unknown Completed [facility] HIB 4 Dose Schedule Unknown Completed [facility] HIB 4 Dose Schedule Unknown Completed [facility] MMR Unknown Completed [facility] IPV Unknown Completed [facility] IPV Unknown Completed [facility] Poliovirus, Live, Oral, Trivalent Unknown Completed [facility] Poliovirus, Live, Oral, Trivalent Unknown Completed [facility] Tetanus[facility]Diptheria [facility] Meningococcal Polysaccharide (groups A, C, Y and W-135) conjugate vaccine (MCV4P) Unknown Completed [facility] TDAP (ADACEL) VACCINE Unknown Completed [facility] Influenza Virus Vaccine Quad .5 mL IM 6+ MO (FLUZONE/FLULAVAL/FL UARIX) Unknown Completed [facility] TDAP (ADACEL) VACCINE Unknown Completed [facility] TDAP (ADACEL) VACCINE Unknown Completed [facility] Influenza Virus Vaccine Quad .5 mL IM 6+ MO (FLUZONE/FLULAVAL/FL UARIX) Unknown Completed [facility] HPV Unknown Completed [facility] Meningococcal Polysaccharide (groups A, C, Y and W-135) conjugate vaccine (MCV4P) Unknown Completed [facility] Varicella (varivax)(chicken pox) Unknown Completed [facility] SARS-COV-2 COVID-19 VACCINE - (MODERNA) Unknown Completed [facility] DTaP, Unspecified Formulation Unknown Completed [facility] DTaP, Unspecified Formulation Unknown Completed [facility] DTaP, Unspecified Formulation Unknown Completed [facility] DTaP, Unspecified Formulation Unknown Completed [facility] HEPATITIS A Unknown Completed [facility] Hep B, Adol or Pedi Dosage Unknown Completed [facility] Hep B, Adol or Pedi Dosage Unknown Completed [facility] HIB 4 Dose Schedule Unknown Completed [facility] HIB 4 Dose Schedule Unknown Completed [facility] MMR Unknown Completed [facility] IPV Unknown Completed [facility] IPV Unknown Completed [facility] Poliovirus, Live, Oral, Trivalent Unknown Completed [facility] Poliovirus, Live, Oral, Trivalent Unknown Completed [facility] Tetanus/Diptheria [facility] Meningococcal Polysaccharide (groups A, C, Y and W-135) conjugate vaccine (MCV4P) Unknown Completed [facility] TDAP (ADACEL) VACCINE Unknown Completed [facility] Influenza Virus Vaccine Quad .5 mL IM 6+ MO (FLUZONE/FLULAVAL/FL UARIX) Unknown Completed [facility] TDAP (ADACEL) VACCINE Unknown Completed [facility] TDAP (ADACEL) VACCINE Unknown Completed [facility] Influenza Virus Vaccine Quad .5 mL IM 6+ MO (FLUZONE/FLULAVAL/FL UARIX) Unknown Completed [facility] HPV Unknown Completed [facility] Meningococcal Polysaccharide (groups A, C, Y and W-135) conjugate vaccine (MCV4P) Unknown Completed [facility] Varicella (varivax)(chicken pox) Unknown Completed [facility] SARS-COV-2 COVID-19 VACCINE - (MODERNA) Unknown Completed [facility] SARS-COV-2 COVID-19 VACCINE - (MODERNA) Unknown Completed [facility] DTaP, Unspecified Formulation Unknown Completed [facility] DTaP, Unspecified Formulation Unknown Completed [facility] DTaP, Unspecified Formulation Unknown Completed [facility] DTaP, Unspecified Formulation Unknown Completed [facility] HEPATITIS A Unknown Completed [facility] Hep B, Adol or Pedi Dosage Unknown Completed [facility] Hep B, Adol or Pedi Dosage Unknown Completed [facility] HIB 4 Dose Schedule Unknown Completed [facility] HIB 4 Dose Schedule Unknown Completed [facility] MMR Unknown Completed [facility] IPV Unknown Completed [facility] IPV Unknown Completed [facility] Poliovirus, Live, Oral, Trivalent Unknown Completed [facility] Poliovirus, Live, Oral, Trivalent Unknown Completed [facility] Tetanus/Diptheria Unknown Completed [facility] HPV Unknown Completed [facility] Meningococcal Polysaccharide (groups A, C, Y and W-135) conjugate vaccine (MCV4P) Unknown Completed [facility] TDAP (ADACEL) VACCINE Unknown Completed [facility] Influenza Virus Vaccine Quad .5 mL IM 6+ MO (FLUZONE/FLULAVAL/FL UARIX) Unknown Completed [facility] TDAP (ADACEL) VACCINE Unknown Completed [facility] TDAP (ADACEL) VACCINE Unknown Completed [facility] Influenza Virus Vaccine Quad .5 mL IM 6+ MO (FLUZONE/FLULAVAL/FL UARIX) Unknown Completed [facility] HPV Unknown Completed [facility] Meningococcal Polysaccharide (groups A, C, Y and W-135) conjugate vaccine (MCV4P) Unknown Completed [facility] Varicella (varivax)(chicken pox) Unknown Completed [facility] SARS-COV-2 COVID-19 VACCINE - (MODERNA) Unknown Completed [facility] SARS-COV-2 COVID-19 VACCINE - (MODERNA) Unknown Completed [facility] DTaP, Unspecified Formulation Unknown Completed [facility] DTaP, Unspecified Formulation Unknown Completed [facility] DTaP, Unspecified Formulation Unknown Completed [facility] DTaP, Unspecified Formulation Unknown Completed [facility] HEPATITIS A Unknown Completed [facility] Hep B, Adol or Pedi Dosage Unknown Completed [facility] Hep B, Adol or Pedi Dosage Unknown Completed [facility] HIB 4 Dose Schedule Unknown Completed [facility] HIB 4 Dose Schedule Unknown Completed [facility] MMR Unknown Completed [facility] IPV Unknown Completed [facility] IPV Unknown Completed [facility] Poliovirus, Live, Oral, Trivalent Unknown Completed [facility] Poliovirus, Live, Oral, Trivalent Unknown Completed [facility] Tetanus/Diptheria Unknown [facility] Com[facility] Meningococcal Polysaccharide (groups A, C, Y and W-135) conjugate vaccine (MCV4P) Unknown Completed [facility] TDAP (ADACEL) VACCINE Unknown Completed [facility] Influenza Virus Vaccine Quad .5 mL IM 6+ MO (FLUZONE/FLULAVAL/FL UARIX) Unknown Completed [facility] TDAP (ADACEL) VACCINE Unknown Completed [facility] TDAP (ADACEL) VACCINE Unknown Completed [facility] Influenza Virus Vaccine Quad .5 mL IM 6+ MO (FLUZONE/FLULAVAL/FL UARIX) Unknown Completed [facility] HPV Unknown Completed [facility] Meningococcal Polysaccharide (groups A, C, Y and W-135) conjugate vaccine (MCV4P) Unknown Completed [facility] Varicella (varivax)(chicken pox) Unknown Completed [facility] SARS-COV-2 COVID-19 VACCINE - (MODERNA) Unknown Completed [facility] SARS-COV-2 COVID-19 VACCINE - (MODERNA) Unknown Completed [facility] DTaP, Unspecified Formulation Unknown Completed [facility] DTaP, Unspecified Formulation Unknown Completed [facility] DTaP, Unspecified Formulation Unknown Completed [facility] DTaP, Unspecified Formulation Unknown Completed [facility] HEPATITIS A Unknown Completed [facility] Hep B, Adol or Pedi Dosage Unknown Completed [facility] Hep B, Adol or Pedi Dosage Unknown Completed [facility] HIB 4 Dose Schedule Unknown Completed [facility] HIB 4 Dose Schedule Unknown Completed [facility] MMR Unknown Completed [facility] IPV Unknown Completed [facility] IPV Unknown Completed [facility] Poliovirus, Live, Oral, Trivalent Unknown Completed [facility] Poliovirus, Live, Oral, Trivalent Unknown Completed [facility] Tetanus/Diptheria Unknown Completed [facility] HPV Unknown Completed [facility] Meningococcal Polysaccharide (groups A, C, Y and W-135) conjugate vaccine (MCV4P) Unknown Completed [facility] TDAP (ADACEL) VACCINE Unknown Completed [facility] Influenza Virus Vaccine Quad .5 mL IM 6+ MO (FLUZONE/FLULAVAL/FL UARIX) Unknown Completed [facility] TDAP (ADACEL) VACCINE Unknown Completed [facility] TDAP (ADACEL) VACCINE Unknown Completed [facility] Influenza Virus Vaccine Quad .5 mL IM 6+ MO (FLUZONE/FLULAVAL/FL UARIX) Unknown Completed [facility] HPV Unknown Completed [facility] Meningococcal Polysaccharide (groups A, C, Y and W-135) conjugate vaccine (MCV4P) Unknown Completed [facility] Varicella (varivax)(chicken pox) Unknown Completed [facility] SARS-COV-2 COVID-19 VACCINE - (MODERNA) Unknown Completed [facility] SARS-COV-2 COVID-19 VACCINE - (MODERNA) Unknown Completed [facility] DTaP, Unspecified Formulation Unknown Completed [facility] DTaP, Unspecified Formulation Unknown Completed [facility] DTaP, Unspecified Formulation Unknown Completed [facility] DTaP, Unspecified Formulation Unknown Completed [facility] HEPATITIS A Unknown Completed [facility] Hep B, Adol or Pedi Dosage Unknown Completed [facility] Hep B, Adol or Pedi Dosage Unknown Completed [facility] HIB 4 Dose Schedule Unknown Completed [facility] HIB 4 Dose Schedule Unknown Completed [facility] MMR Unknown Completed [facility] IPV Unknown Completed [facility] IPV Unknown Completed [facility] Poliovirus, Live, Oral, Trivalent Unknown Completed [facility] Poliovirus, Live, Oral, Trivalent Unknown Completed [facility]anus[facility]iptheria [facility] Influenza Virus Vaccine Quad IM, Preserv and ABX Free 6 MO-64 YRS (FLUCELVAX) Unknown Completed [facility] HPV Unknown Completed [facility] Meningococcal Polysaccharide (groups A, C, Y and W-135) conjugate vaccine (MCV4P) Unknown Completed [facility] TDAP (ADACEL) VACCINE Unknown Completed [facility] Influenza Virus Vaccine Quad .5 mL IM 6+ MO (FLUZONE/FLULAVAL/FL UARIX) Unknown Completed [facility] TDAP (ADACEL) VACCINE Unknown Completed [facility] TDAP (ADACEL) VACCINE Unknown Completed [facility] Influenza Virus Vaccine Quad .5 mL IM 6+ MO (FLUZONE/FLULAVAL/FL UARIX) Unknown Completed [facility] HPV Unknown Completed [facility] Meningococcal Polysaccharide (groups A, C, Y and W-135) conjugate vaccine (MCV4P) Unknown Completed [facility] Varicella (varivax)(chicken pox) Unknown Completed [facility] SARS-COV-2 COVID-19 VACCINE - (MODERNA) Unknown Completed [facility] SARS-COV-2 COVID-19 VACCINE - (MODERNA) Unknown Completed [facility] DTaP, Unspecified Formulation Unknown Completed [facility] DTaP, Unspecified Formulation Unknown Completed [facility] DTaP, Unspecified Formulation Unknown Completed [facility] DTaP, Unspecified Formulation Unknown Completed [facility] HEPATITIS A Unknown Completed [facility] Hep B, Adol or Pedi Dosage Unknown Completed [facility] Hep B, Adol or Pedi Dosage Unknown Completed [facility] HIB 4 Dose Schedule Unknown Completed [facility] HIB 4 Dose Schedule Unknown Completed [facility] MMR Unknown Completed [facility] IPV Unknown Completed [facility] IPV Unknown Completed [facility] Poliovirus, Live, Oral, Trivalent Unknown Completed [facility] Poliovirus, Live, Oral, Trivalent Unknown Completed [facility] Tetanus/Diptheria [facility] Influenza Virus Vaccine Quad IM, Preserv and ABX Free 6 MO-64 YRS (FLUCELVAX) Unknown Completed [facility] HPV Unknown Completed [facility] Meningococcal Polysaccharide (groups A, C, Y and W-135) conjugate vaccine (MCV4P) Unknown Completed [facility] TDAP (ADACEL) VACCINE Unknown Completed [facility] Influenza Virus Vaccine Quad .5 mL IM 6+ MO (FLUZONE/FLULAVAL/FL UARIX) Unknown Completed [facility] TDAP (ADACEL) VACCINE Unknown Completed [facility] TDAP (ADACEL) VACCINE Unknown Completed [facility] Influenza Virus Vaccine Quad .5 mL IM 6+ MO (FLUZONE/FLULAVAL/FL UARIX) Unknown Completed [facility] HPV Unknown Completed [facility] Meningococcal Polysaccharide (groups A, C, Y and W-135) conjugate vaccine (MCV4P) Unknown Completed [facility] Varicella (varivax)(chicken pox) Unknown Completed [facility] SARS-COV-2 COVID-19 VACCINE - (MODERNA) Unknown Completed [facility] SARS-COV-2 COVID-19 VACCINE - (MODERNA) Unknown Completed [facility] DTaP, Unspecified Formulation Unknown Completed [facility] DTaP, Unspecified Formulation Unknown Completed [facility] DTaP, Unspecified Formulation Unknown Completed [facility] DTaP, Unspecified Formulation Unknown Completed [facility] HEPATITIS A Unknown Completed [facility] Hep B, Adol or Pedi Dosage Unknown Completed [facility] Hep B, Adol or Pedi Dosage Unknown Completed [facility] HIB 4 Dose Schedule Unknown Completed [facility] HIB 4 Dose Schedule Unknown Completed [facility] MMR Unknown Completed [facility] IPV Unknown Completed [facility] IPV Unknown Completed [facility] Poliovirus, Live, Oral, Trivalent Unknown Completed [facility] Poliovirus, Live, Oral, Trivalent Unknown Completed [facility] Tetanus/Diptheria Unknown Completed [facility] TDAP Unknown Completed [facility] Influenza Virus Vaccine Quad IM, Preserv and ABX Free 6 MO-64 YRS (FLUCELVAX) Unknown Completed [facility] HPV Unknown Completed [facility] Meningococcal Polysaccharide (groups A, C, Y and W-135) conjugate vaccine (MCV4P) Unknown Completed [facility] TDAP (ADACEL) VACCINE Unknown Completed [facility] Influenza Virus Vaccine Quad .5 mL IM 6+ MO (FLUZONE/FLULAVAL/FL UARIX) Unknown Completed [facility] TDAP (ADACEL) VACCINE Unknown Completed [facility] TDAP (ADACEL) VACCINE Unknown Completed [facility] Influenza Virus Vaccine Quad .5 mL IM 6+ MO (FLUZONE/FLULAVAL/FL UARIX) Unknown Completed [facility] HPV Unknown Completed [facility] Meningococcal Polysaccharide (groups A, C, Y and W-135) conjugate vaccine (MCV4P) Unknown Completed [facility] Varicella (varivax)(chicken pox) Unknown Completed [facility] SARS-COV-2 COVID-19 VACCINE - (MODERNA) Unknown Completed [facility] SARS-COV-2 COVID-19 VACCINE - (MODERNA) Unknown Completed [facility] DTaP, Unspecified Formulation Unknown Completed [facility] DTaP, Unspecified Formulation Unknown Completed [facility] DTaP, Unspecified Formulation Unknown Completed [facility] DTaP, Unspecified Formulation Unknown Completed [facility] HEPATITIS A Unknown Completed [facility] Hep B, Adol or Pedi Dosage Unknown Completed [facility] Hep B, Adol or Pedi Dosage Unknown Completed [facility] HIB 4 Dose Schedule Unknown Completed [facility] HIB 4 Dose Schedule Unknown Completed [facility] MMR Unknown Completed [facility] IPV Unknown Completed [facility] IPV Unknown Completed [facility] Poliovirus, Live, Oral, Trivalent Unknown Completed [facility] Poliovirus, Live, Oral, Trivalent Unknown Completed [facility] Tetanus/Diptheria [facility] Influenza Virus Vaccine Quad IM, Preserv and ABX Free 6 MO-64 YRS (FLUCELVAX) Unknown Completed [facility] HPV Unknown Completed [facility] Meningococcal Polysaccharide (groups A, C, Y and W-135) conjugate vaccine (MCV4P) Unknown Completed [facility] TDAP (ADACEL) VACCINE Unknown Completed [facility] Influenza Virus Vaccine Quad .5 mL IM 6+ MO (FLUZONE/FLULAVAL/FL UARIX) Unknown Completed [facility] TDAP (ADACEL) VACCINE Unknown Completed [facility] TDAP (ADACEL) VACCINE Unknown Completed [facility] Influenza Virus Vaccine Quad .5 mL IM 6+ MO (FLUZONE/FLULAVAL/FL UARIX) Unknown Completed [facility] HPV Unknown Completed [facility] Meningococcal Polysaccharide (groups A, C, Y and W-135) conjugate vaccine (MCV4P) Unknown Completed [facility] Varicella (varivax)(chicken pox) Unknown Completed [facility] SARS-COV-2 COVID-19 VACCINE - (MODERNA) Unknown Completed [facility] SARS-COV-2 COVID-19 VACCINE - (MODERNA) Unknown Completed [facility] DTaP, Unspecified Formulation Unknown Completed [facility] DTaP, Unspecified Formulation Unknown Completed [facility] DTaP, Unspecified Formulation Unknown Completed [facility] DTaP, Unspecified Formulation Unknown Completed [facility] HEPATITIS A Unknown Completed [facility] Hep B, Adol or Pedi Dosage Unknown Completed [facility] Hep B, Adol or Pedi Dosage Unknown Completed [facility] HIB 4 Dose Schedule Unknown Completed [facility] HIB 4 Dose Schedule Unknown Completed [facility] MMR Unknown Completed [facility] IPV Unknown Completed [facility] IPV Unknown Completed [facility] Poliovirus, Live, Oral, Trivalent Unknown Completed [facility] Poliovirus, Live, Oral, Trivalent Unknown Completed [facility] Tetanus/Diptheria Unknown Completed [facility] TDAP Unknown Completed [facility] Influenza Virus Vaccine Quad IM, Preserv and ABX Free 6 MO-64 YRS (FLUCELVAX) Unknown Completed [facility] HPV Unknown Completed [facility] Meningococcal Polysaccharide (groups A, C, Y and W-135) conjugate vaccine (MCV4P) Unknown Completed [facility] TDAP (ADACEL) VACCINE Unknown Completed [facility] Influenza Virus Vaccine Quad .5 mL IM 6+ MO (FLUZONE/FLULAVAL/FL UARIX) Unknown Completed [facility] TDAP (ADACEL) VACCINE Unknown Completed [facility] TDAP (ADACEL) VACCINE Unknown Completed [facility] Influenza Virus Vaccine Quad .5 mL IM 6+ MO (FLUZONE/FLULAVAL/FL UARIX) Unknown Completed [facility] HPV Unknown Completed [facility] Meningococcal Polysaccharide (groups A, C, Y and W-135) conjugate vaccine (MCV4P) Unknown Completed [facility] Varicella (varivax)(chicken pox) Unknown Completed [facility] SARS-COV-2 COVID-19 VACCINE - (MODERNA) Unknown Completed [facility] SARS-COV-2 COVID-19 VACCINE - (MODERNA) Unknown Completed [facility] DTaP, Unspecified Formulation Unknown Completed [facility] DTaP, Unspecified Formulation Unknown Completed [facility] DTaP, Unspecified Formulation Unknown Completed [facility] DTaP, Unspecified Formulation Unknown Completed [facility] HEPATITIS A Unknown Completed [facility] Hep B, Adol or Pedi Dosage Unknown Completed [facility] Hep B, Adol or Pedi Dosage Unknown Completed [facility] HIB 4 Dose Schedule Unknown Completed [facility] HIB 4 Dose Schedule Unknown Completed [facility] MMR Unknown Completed [facility] IPV Unknown Completed [facility] IPV Unknown Completed [facility] Poliovirus, Live, Oral, Trivalent Unknown Completed [facility] Poliovirus, Live, Oral, Trivalent Unknown Completed [facility] Tetanus/Diptheria [facility] Completed [facility] Influenza Virus Vaccine Quad IM, Preserv and ABX Free 6 MO-64 YRS (FLUCELVAX) Unknown Completed [facility] HPV Unknown Completed [facility] Meningococcal Polysaccharide (groups A, C, Y and W-135) conjugate vaccine (MCV4P) Unknown Completed [facility] TDAP (ADACEL) VACCINE Unknown Completed [facility] Influenza Virus Vaccine Quad .5 mL IM 6+ MO (FLUZONE/FLULAVAL/FL UARIX) Unknown Completed [facility] TDAP (ADACEL) VACCINE Unknown Completed [facility] TDAP (ADACEL) VACCINE Unknown Completed [facility] Influenza Virus Vaccine Quad .5 mL IM 6+ MO (FLUZONE/FLULAVAL/FL UARIX) Unknown Completed [facility] HPV Unknown Completed [facility] Meningococcal Polysaccharide (groups A, C, Y and W-135) conjugate vaccine (MCV4P) Unknown Completed [facility] Varicella (varivax)(chicken pox) Unknown Completed [facility] SARS-COV-2 COVID-19 VACCINE - (MODERNA) Unknown Completed [facility] SARS-COV-2 COVID-19 VACCINE - (MODERNA) Unknown Completed [facility] DTaP, Unspecified Formulation Unknown Completed [facility] DTaP, Unspecified Formulation Unknown Completed [facility] DTaP, Unspecified Formulation Unknown Completed [facility] DTaP, Unspecified Formulation Unknown Completed [facility] HEPATITIS A Unknown Completed [facility] Hep B, Adol or Pedi Dosage Unknown Completed [facility] Hep B, Adol or Pedi Dosage Unknown Completed [facility] HIB 4 Dose Schedule Unknown Completed [facility] HIB 4 Dose Schedule Unknown Completed [facility] MMR Unknown Completed [facility] IPV Unknown Completed [facility] IPV Unknown Completed [facility] Poliovirus, Live, Oral, Trivalent Unknown Completed [facility] Poliovirus, Live, Oral, Trivalent Unknown Completed [facility] Tetanus/Diptheria Unknown [facility] Completed [facility] Influenza Virus Vaccine Quad IM, Preserv and ABX Free 6 MO-64 YRS (FLUCELVAX) Unknown Completed [facility] HPV Unknown Completed [facility] Meningococcal Polysaccharide (groups A, C, Y and W-135) conjugate vaccine (MCV4P) Unknown Completed [facility] TDAP (ADACEL) VACCINE Unknown Completed [facility] Influenza Virus Vaccine Quad .5 mL IM 6+ MO (FLUZONE/FLULAVAL/FL UARIX) Unknown Completed [facility] TDAP (ADACEL) VACCINE Unknown Completed [facility] TDAP (ADACEL) VACCINE Unknown Completed [facility] Influenza Virus Vaccine Quad .5 mL IM 6+ MO (FLUZONE/FLULAVAL/FL UARIX) Unknown Completed [facility] HPV Unknown Completed [facility] Meningococcal Polysaccharide (groups A, C, Y and W-135) conjugate vaccine (MCV4P) Unknown Completed [facility] Varicella (varivax)(chicken pox) Unknown Completed [facility] SARS-COV-2 COVID-19 VACCINE - (MODERNA) Unknown Completed [facility] SARS-COV-2 COVID-19 VACCINE - (MODERNA) Unknown Completed [facility] DTaP, Unspecified Formulation Unknown Completed [facility] DTaP, Unspecified Formulation Unknown Completed [facility] DTaP, Unspecified Formulation Unknown Completed [facility] DTaP, Unspecified Formulation Unknown Completed [facility] HEPATITIS A Unknown Completed [facility] Hep B, Adol or Pedi Dosage Unknown Completed [facility] Hep B, Adol or Pedi Dosage Unknown Completed [facility] HIB 4 Dose Schedule Unknown Completed [facility] HIB 4 Dose Schedule Unknown Completed [facility] MMR Unknown Completed [facility] IPV Unknown Completed [facility] IPV Unknown Completed [facility] Poliovirus, Live, Oral, Trivalent Unknown Completed [facility] Poliovirus, Live, Oral, Trivalent Unknown Completed [facility] Tetanus/Diptheria Unknown Completed [facility] TDAP Unknown Completed [facility] Influenza Virus Vaccine Quad IM, Preserv and ABX Free 6 MO-64 YRS (FLUCELVAX) Unknown Completed [facility] HPV Unknown Completed [facility] Meningococcal Polysaccharide (groups A, C, Y and W-135) conjugate vaccine (MCV4P) Unknown Completed [facility] TDAP (ADACEL) VACCINE Unknown Completed [facility] Influenza Virus Vaccine Quad .5 mL IM 6+ MO (FLUZONE/FLULAVAL/FL UARIX) Unknown Completed [facility] TDAP (ADACEL) VACCINE Unknown Completed [facility] TDAP (ADACEL) VACCINE Unknown Completed [facility] Influenza Virus Vaccine Quad .5 mL IM 6+ MO (FLUZONE/FLULAVAL/FL UARIX) Unknown Completed [facility] HPV Unknown Completed [facility] Meningococcal Polysaccharide (groups A, C, Y and W-135) conjugate vaccine (MCV4P) Unknown Completed [facility] Varicella (varivax)(chicken pox) Unknown Completed [facility] SARS-COV-2 COVID-19 VACCINE - (MODERNA) Unknown Completed [facility] SARS-COV-2 COVID-19 VACCINE - (MODERNA) Unknown Completed [facility] DTaP, Unspecified Formulation Unknown Completed [facility] DTaP, Unspecified Formulation Unknown Completed [facility] DTaP, Unspecified Formulation Unknown Completed [facility] DTaP, Unspecified Formulation Unknown Completed [facility] HEPATITIS A Unknown Completed [facility] Hep B, Adol or Pedi Dosage Unknown Completed [facility] Hep B, Adol or Pedi Dosage Unknown Completed [facility] HIB 4 Dose Schedule Unknown Completed [facility] HIB 4 Dose Schedule Unknown Completed [facility] MMR Unknown Completed [facility] IPV Unknown Completed [facility] IPV Unknown Completed [facility] Poliovirus, Live, Oral, Trivalent Unknown Completed [facility] Poliovirus, Live, Oral, Trivalent Unknown Completed [facility] Tetanus/Diptheria Unknown [facility] Com[facility] Influenza Virus Vaccine Quad IM, Preserv and ABX Free 6 MO-64 YRS (FLUCELVAX) Unknown Completed [facility] HPV Unknown Completed [facility] Meningococcal Polysaccharide (groups A, C, Y and W-135) conjugate vaccine (MCV4P) Unknown Completed [facility] TDAP (ADACEL) VACCINE Unknown Completed [facility] Influenza Virus Vaccine Quad .5 mL IM 6+ MO (FLUZONE/FLULAVAL/FL UARIX) Unknown Completed [facility] TDAP (ADACEL) VACCINE Unknown Completed [facility] TDAP (ADACEL) VACCINE Unknown Completed [facility] Influenza Virus Vaccine Quad .5 mL IM 6+ MO (FLUZONE/FLULAVAL/FL UARIX) Unknown Completed [facility] HPV Unknown Completed [facility] Meningococcal Polysaccharide (groups A, C, Y and W-135) conjugate vaccine (MCV4P) Unknown Completed [facility] Varicella (varivax)(chicken pox) Unknown Completed [facility] SARS-COV-2 COVID-19 VACCINE - (MODERNA) Unknown Completed [facility] SARS-COV-2 COVID-19 VACCINE - (MODERNA) Unknown Completed [facility] DTaP, Unspecified Formulation Unknown Completed [facility] DTaP, Unspecified Formulation Unknown Completed [facility] DTaP, Unspecified Formulation Unknown Completed [facility] DTaP, Unspecified Formulation Unknown Completed [facility] HEPATITIS A Unknown Completed [facility] Hep B, Adol or Pedi Dosage Unknown Completed [facility] Hep B, Adol or Pedi Dosage Unknown Completed [facility] HIB 4 Dose Schedule Unknown Completed [facility] HIB 4 Dose Schedule Unknown Completed [facility] MMR Unknown Completed [facility] IPV Unknown Completed [facility] IPV Unknown Completed [facility] Poliovirus, Live, Oral, Trivalent Unknown Completed [facility] Poliovirus, Live, Oral, Trivalent Unknown Completed [facility] Tetanus/Diptheria [facility] Influenza Virus Vaccine Quad IM, Preserv and ABX Free 6 MO-64 YRS (FLUCELVAX) Unknown Completed [facility] HPV Unknown Completed [facility] Meningococcal Polysaccharide (groups A, C, Y and W-135) conjugate vaccine (MCV4P) Unknown Completed [facility] TDAP (ADACEL) VACCINE Unknown Completed [facility] Influenza Virus Vaccine Quad .5 mL IM 6+ MO (FLUZONE/FLULAVAL/FL UARIX) Unknown Completed [facility] TDAP (ADACEL) VACCINE Unknown Completed [facility] TDAP (ADACEL) VACCINE Unknown Completed [facility] Influenza Virus Vaccine Quad .5 mL IM 6+ MO (FLUZONE/FLULAVAL/FL UARIX) Unknown Completed [facility] HPV Unknown Completed [facility] Meningococcal Polysaccharide (groups A, C, Y and W-135) conjugate vaccine (MCV4P) Unknown Completed [facility] Varicella (varivax)(chicken pox) Unknown Completed [facility] SARS-COV-2 COVID-19 VACCINE - (MODERNA) Unknown Completed [facility] SARS-COV-2 COVID-19 VACCINE - (MODERNA) Unknown Completed [facility] DTaP, Unspecified Formulation Unknown Completed [facility] DTaP, Unspecified Formulation Unknown Completed [facility] DTaP, Unspecified Formulation Unknown Completed [facility] DTaP, Unspecified Formulation Unknown Completed [facility] HEPATITIS A Unknown Completed [facility] Hep B, Adol or Pedi Dosage Unknown Completed [facility] Hep B, Adol or Pedi Dosage Unknown Completed [facility] HIB 4 Dose Schedule Unknown Completed [facility] HIB 4 Dose Schedule Unknown Completed [facility] MMR Unknown Completed [facility] IPV Unknown Completed [facility] IPV Unknown Completed [facility] Poliovirus, Live, Oral, Trivalent Unknown Completed [facility] Poliovirus, Live, Oral, Trivalent Unknown Completed [facility] Tetanus/Diptheria Unknown [facility] Com[facility] Influenza Virus Vaccine Quad IM, Preserv and ABX Free 6 MO-64 YRS (FLUCELVAX) Unknown Completed [facility] HPV Unknown Completed [facility] Meningococcal Polysaccharide (groups A, C, Y and W-135) conjugate vaccine (MCV4P) Unknown Completed [facility] TDAP (ADACEL) VACCINE Unknown Completed [facility] Influenza Virus Vaccine Quad .5 mL IM 6+ MO (FLUZONE/FLULAVAL/FL UARIX) Unknown Completed [facility] TDAP (ADACEL) VACCINE Unknown Completed [facility] TDAP (ADACEL) VACCINE Unknown Completed [facility] Influenza Virus Vaccine Quad .5 mL IM 6+ MO (FLUZONE/FLULAVAL/FL UARIX) Unknown Completed [facility] HPV Unknown Completed [facility] Meningococcal Polysaccharide (groups A, C, Y and W-135) conjugate vaccine (MCV4P) Unknown Completed [facility] Varicella (varivax)(chicken pox) Unknown Completed [facility] SARS-COV-2 COVID-19 VACCINE - (MODERNA) Unknown Completed [facility] SARS-COV-2 COVID-19 VACCINE - (MODERNA) Unknown Completed [facility] DTaP, Unspecified Formulation Unknown Completed [facility] DTaP, Unspecified Formulation Unknown Completed [facility] DTaP, Unspecified Formulation Unknown Completed [facility] DTaP, Unspecified Formulation Unknown Completed [facility] HEPATITIS A Unknown Completed [facility] Hep B, Adol or Pedi Dosage Unknown Completed [facility] Hep B, Adol or Pedi Dosage Unknown Completed [facility] HIB 4 Dose Schedule Unknown Completed [facility] HIB 4 Dose Schedule Unknown Completed [facility] MMR Unknown Completed [facility] IPV Unknown Completed [facility] IPV Unknown Completed [facility] Poliovirus, Live, Oral, Trivalent Unknown Completed [facility] Poliovirus, Live, Oral, Trivalent Unknown Completed [facility] Tetanus/Diptheria Unknown Completed [facility] TDAP Unknown Completed [facility] Influenza Virus Vaccine Quad IM, Preserv and ABX Free 6 MO-64 YRS (FLUCELVAX) Unknown Completed [facility] HPV Unknown Completed [facility] Meningococcal Polysaccharide (groups A, C, Y and W-135) conjugate vaccine (MCV4P) Unknown Completed [facility] TDAP (ADACEL) VACCINE Unknown Completed [facility] Influenza Virus Vaccine Quad .5 mL IM 6+ MO (FLUZONE/FLULAVAL/FL UARIX) Unknown Completed [facility] TDAP (ADACEL) VACCINE Unknown Completed [facility] TDAP (ADACEL) VACCINE Unknown Completed [facility] Influenza Virus Vaccine Quad .5 mL IM 6+ MO (FLUZONE/FLULAVAL/FL UARIX) Unknown Completed [facility] HPV Unknown Completed [facility] Meningococcal Polysaccharide (groups A, C, Y and W-135) conjugate vaccine (MCV4P) Unknown Completed [facility] Varicella (varivax)(chicken pox) Unknown Completed [facility] SARS-COV-2 COVID-19 VACCINE - (MODERNA) Unknown Completed [facility] SARS-COV-2 COVID-19 VACCINE - (MODERNA) Unknown Completed [facility] DTaP, Unspecified Formulation Unknown Completed [facility] DTaP, Unspecified Formulation Unknown Completed [facility] DTaP, Unspecified Formulation Unknown Completed [facility] DTaP, Unspecified Formulation Unknown Completed [facility] HEPATITIS A Unknown Completed [facility] Hep B, Adol or Pedi Dosage Unknown Completed [facility] Hep B, Adol or Pedi Dosage Unknown Completed [facility] HIB 4 Dose Schedule Unknown Completed [facility] HIB 4 Dose Schedule Unknown Completed [facility] MMR Unknown Completed [facility] IPV Unknown Completed [facility] IPV Unknown Completed [facility] Poliovirus, Live, Oral, Trivalent Unknown Completed [facility] Poliovirus, Live, Oral, Trivalent Unknown Completed [facility]anus[facility]heria [facility] Influenza Virus Vaccine Quad IM, Preserv and ABX Free 6 MO-64 YRS (FLUCELVAX) Unknown Completed [facility] HPV Unknown Completed [facility] Meningococcal Polysaccharide (groups A, C, Y and W-135) conjugate vaccine (MCV4P) Unknown Completed [facility] TDAP (ADACEL) VACCINE Unknown Completed [facility] Influenza Virus Vaccine Quad .5 mL IM 6+ MO (FLUZONE/FLULAVAL/FL UARIX) Unknown Completed [facility] TDAP (ADACEL) VACCINE Unknown Completed [facility] TDAP (ADACEL) VACCINE Unknown Completed [facility] Influenza Virus Vaccine Quad .5 mL IM 6+ MO (FLUZONE/FLULAVAL/FL UARIX) Unknown Completed [facility] HPV Unknown Completed [facility] Meningococcal Polysaccharide (groups A, C, Y and W-135) conjugate vaccine (MCV4P) Unknown Completed [facility] Varicella (varivax)(chicken pox) Unknown Completed [facility] SARS-COV-2 COVID-19 VACCINE - (MODERNA) Unknown Completed [facility] SARS-COV-2 COVID-19 VACCINE - (MODERNA) Unknown Completed [facility] DTaP, Unspecified Formulation Unknown Completed [facility] DTaP, Unspecified Formulation Unknown Completed [facility] DTaP, Unspecified Formulation Unknown Completed [facility] DTaP, Unspecified Formulation Unknown Completed [facility] HEPATITIS A Unknown Completed [facility] Hep B, Adol or Pedi Dosage Unknown Completed [facility] Hep B, Adol or Pedi Dosage Unknown Completed [facility] HIB 4 Dose Schedule Unknown Completed [facility] HIB 4 Dose Schedule Unknown Completed [facility] MMR Unknown Completed [facility] IPV Unknown Completed [facility] IPV Unknown Completed [facility] Poliovirus, Live, Oral, Trivalent Unknown Completed [facility] Poliovirus, Live, Oral, Trivalent Unknown Completed [facility] Tetanus/Diptheria [facility] Influenza Virus Vaccine Quad IM, Preserv and ABX Free 6 MO-64 YRS (FLUCELVAX) Unknown Completed [facility] HPV Unknown Completed [facility] Meningococcal Polysaccharide (groups A, C, Y and W-135) conjugate vaccine (MCV4P) Unknown Completed [facility] TDAP (ADACEL) VACCINE Unknown Completed [facility] Influenza Virus Vaccine Quad .5 mL IM 6+ MO (FLUZONE/FLULAVAL/FL UARIX) Unknown Completed [facility] TDAP (ADACEL) VACCINE Unknown Completed [facility] TDAP (ADACEL) VACCINE Unknown Completed [facility] Influenza Virus Vaccine Quad .5 mL IM 6+ MO (FLUZONE/FLULAVAL/FL UARIX) Unknown Completed [facility] HPV Unknown Completed [facility] Meningococcal Polysaccharide (groups A, C, Y and W-135) conjugate vaccine (MCV4P) Unknown Completed [facility] Varicella (varivax)(chicken pox) Unknown Completed [facility] SARS-COV-2 COVID-19 VACCINE - (MODERNA) Unknown Completed [facility] SARS-COV-2 COVID-19 VACCINE - (MODERNA) Unknown Completed [facility] DTaP, Unspecified Formulation Unknown Completed [facility] DTaP, Unspecified Formulation Unknown Completed [facility] DTaP, Unspecified Formulation Unknown Completed [facility] DTaP, Unspecified Formulation Unknown Completed [facility] HEPATITIS A Unknown Completed [facility] Hep B, Adol or Pedi Dosage Unknown Completed [facility] Hep B, Adol or Pedi Dosage Unknown Completed [facility] HIB 4 Dose Schedule Unknown Completed [facility] HIB 4 Dose Schedule Unknown Completed [facility] MMR Unknown Completed [facility] IPV Unknown Completed [facility] IPV Unknown Completed [facility] Poliovirus, Live, Oral, Trivalent Unknown Completed [facility] Poliovirus, Live, Oral, Trivalent Unknown Completed [facility] Tetanus/Diptheria [facility] Influenza Virus Vaccine Quad IM, Preserv and ABX Free 6 MO-64 YRS (FLUCELVAX) Unknown Completed [facility] HPV Unknown Completed [facility] Meningococcal Polysaccharide (groups A, C, Y and W-135) conjugate vaccine (MCV4P) Unknown Completed [facility] TDAP (ADACEL) VACCINE Unknown Completed [facility] Influenza Virus Vaccine Quad .5 mL IM 6+ MO (FLUZONE/FLULAVAL/FL UARIX) Unknown Completed [facility] TDAP (ADACEL) VACCINE Unknown Completed [facility] TDAP (ADACEL) VACCINE Unknown Completed [facility] Influenza Virus Vaccine Quad .5 mL IM 6+ MO (FLUZONE/FLULAVAL/FL UARIX) Unknown Completed [facility] HPV Unknown Completed [facility] Meningococcal Polysaccharide (groups A, C, Y and W-135) conjugate vaccine (MCV4P) Unknown Completed [facility] Varicella (varivax)(chicken pox) Unknown Completed [facility] SARS-COV-2 COVID-19 VACCINE - (MODERNA) Unknown Completed [facility] SARS-COV-2 COVID-19 VACCINE - (MODERNA) Unknown Completed [facility] DTaP, Unspecified Formulation Unknown Completed [facility] DTaP, Unspecified Formulation Unknown Completed [facility] DTaP, Unspecified Formulation Unknown Completed [facility] DTaP, Unspecified Formulation Unknown Completed [facility] HEPATITIS A Unknown Completed [facility] Hep B, Adol or Pedi Dosage Unknown Completed [facility] Hep B, Adol or Pedi Dosage Unknown Completed [facility] HIB 4 Dose Schedule Unknown Completed [facility] HIB 4 Dose Schedule Unknown Completed [facility] MMR Unknown Completed [facility] IPV Unknown Completed [facility] IPV Unknown Completed [facility] Poliovirus, Live, Oral, Trivalent Unknown Completed [facility] Poliovirus, Live, Oral, Trivalent Unknown Completed [facility] Tetanus/Diptheria [facility] Com[facility] Influenza Virus Vaccine Quad IM, Preserv and ABX Free 6 MO-64 YRS (FLUCELVAX) Unknown Completed [facility] HPV Unknown Completed [facility] Meningococcal Polysaccharide (groups A, C, Y and W-135) conjugate vaccine (MCV4P) Unknown Completed [facility] TDAP (ADACEL) VACCINE Unknown Completed [facility] Influenza Virus Vaccine Quad .5 mL IM 6+ MO (FLUZONE/FLULAVAL/FL UARIX) Unknown Completed [facility] TDAP (ADACEL) VACCINE Unknown Completed [facility] TDAP (ADACEL) VACCINE Unknown Completed [facility] Influenza Virus Vaccine Quad .5 mL IM 6+ MO (FLUZONE/FLULAVAL/FL UARIX) Unknown Completed [facility] HPV Unknown Completed [facility] Meningococcal Polysaccharide (groups A, C, Y and W-135) conjugate vaccine (MCV4P) Unknown Completed [facility] Varicella (varivax)(chicken pox) Unknown Completed [facility] SARS-COV-2 COVID-19 VACCINE - (MODERNA) Unknown Completed [facility] SARS-COV-2 COVID-19 VACCINE - (MODERNA) Unknown Completed [facility] DTaP, Unspecified Formulation Unknown Completed [facility] DTaP, Unspecified Formulation Unknown Completed [facility] DTaP, Unspecified Formulation Unknown Completed [facility] DTaP, Unspecified Formulation Unknown Completed [facility] HEPATITIS A Unknown Completed [facility] Hep B, Adol or Pedi Dosage Unknown Completed [facility] Hep B, Adol or Pedi Dosage Unknown Completed [facility] HIB 4 Dose Schedule Unknown Completed [facility] HIB 4 Dose Schedule Unknown Completed [facility] MMR Unknown Completed [facility] IPV Unknown Completed [facility] IPV Unknown Completed [facility] Poliovirus, Live, Oral, Trivalent Unknown Completed [facility] Poliovirus, Live, Oral, Trivalent Unknown Completed [facility] Tetanus/Diptheria Unknown Completed [facility] TDAP Unknown Completed [facility] Influenza Virus Vaccine Quad IM, Preserv and ABX Free 6 MO-64 YRS (FLUCELVAX) Unknown Completed [facility] HPV Unknown Completed [facility] Meningococcal Polysaccharide (groups A, C, Y and W-135) conjugate vaccine (MCV4P) Unknown Completed [facility] TDAP (ADACEL) VACCINE Unknown Completed [facility] Influenza Virus Vaccine Quad .5 mL IM 6+ MO (FLUZONE/FLULAVAL/FL UARIX) Unknown Completed [facility] TDAP (ADACEL) VACCINE Unknown Completed [facility] TDAP (ADACEL) VACCINE Unknown Completed [facility] Influenza Virus Vaccine Quad .5 mL IM 6+ MO (FLUZONE/FLULAVAL/FL UARIX) Unknown Completed [facility] HPV Unknown Completed [facility] Meningococcal Polysaccharide (groups A, C, Y and W-135) conjugate vaccine (MCV4P) Unknown Completed [facility] Varicella (varivax)(chicken pox) Unknown Completed [facility] SARS-COV-2 COVID-19 VACCINE - (MODERNA) Unknown Completed [facility] SARS-COV-2 COVID-19 VACCINE - (MODERNA) Unknown Completed [facility] DTaP, Unspecified Formulation Unknown Completed [facility] DTaP, Unspecified Formulation Unknown Completed [facility] DTaP, Unspecified Formulation Unknown Completed [facility] DTaP, Unspecified Formulation Unknown Completed [facility] HEPATITIS A Unknown Completed [facility] Hep B, Adol or Pedi Dosage Unknown Completed [facility] Hep B, Adol or Pedi Dosage Unknown Completed [facility] HIB 4 Dose Schedule Unknown Completed [facility] HIB 4 Dose Schedule Unknown Completed [facility] MMR Unknown Completed [facility] IPV Unknown Completed [facility] IPV Unknown Completed [facility] Poliovirus, Live, Oral, Trivalent Unknown Completed [facility] Poliovirus, Live, Oral, Trivalent Unknown Completed [facility] Tetanus/Diptheria Unknown Completed [facility] TDAP Unknown Completed [facility] Influenza Virus Vaccine Quad IM, Preserv and ABX Free 6 MO-64 YRS (FLUCELVAX) Unknown Completed [facility] HPV Unknown Completed [facility] Meningococcal Polysaccharide (groups A, C, Y and W-135) conjugate vaccine (MCV4P) Unknown Completed [facility] TDAP (ADACEL) VACCINE Unknown Completed [facility] Influenza Virus Vaccine Quad .5 mL IM 6+ MO (FLUZONE/FLULAVAL/FL UARIX) Unknown Completed [facility] TDAP (ADACEL) VACCINE Unknown Completed [facility] TDAP (ADACEL) VACCINE Unknown Completed [facility] Influenza Virus Vaccine Quad .5 mL IM 6+ MO (FLUZONE/FLULAVAL/FL UARIX) Unknown Completed [facility] HPV Unknown Completed [facility] Meningococcal Polysaccharide (groups A, C, Y and W-135) conjugate vaccine (MCV4P) Unknown Completed [facility] Varicella (varivax)(chicken pox) Unknown Completed [facility] SARS-COV-2 COVID-19 VACCINE - (MODERNA) Unknown Completed [facility] SARS-COV-2 COVID-19 VACCINE - (MODERNA) Unknown Completed [facility] DTaP, Unspecified Formulation Unknown Completed [facility] DTaP, Unspecified Formulation Unknown Completed [facility] DTaP, Unspecified Formulation Unknown Completed [facility] DTaP, Unspecified Formulation Unknown Completed [facility] HEPATITIS A Unknown Completed [facility] Hep B, Adol or Pedi Dosage Unknown Completed [facility] Hep B, Adol or Pedi Dosage Unknown Completed [facility] HIB 4 Dose Schedule Unknown Completed [facility] HIB 4 Dose Schedule Unknown Completed [facility] MMR Unknown Completed [facility] IPV Unknown Completed [facility] IPV Unknown Completed [facility] Poliovirus, Live, Oral, Trivalent Unknown Completed [facility] Poliovirus, Live, Oral, Trivalent Unknown Completed [facility] Tetanus/Diptheria Unknown Completed [facility] TDAP Unknown Completed [facility] Influenza Virus Vaccine Quad IM, Preserv and ABX Free 6 MO-64 YRS (FLUCELVAX) Unknown Completed [facility] HPV Unknown Completed [facility] Meningococcal Polysaccharide (groups A, C, Y and W-135) conjugate vaccine (MCV4P) Unknown Completed [facility] TDAP (ADACEL) VACCINE Unknown Completed [facility] Influenza Virus Vaccine Quad .5 mL IM 6+ MO (FLUZONE/FLULAVAL/FL UARIX) Unknown Completed [facility] TDAP (ADACEL) VACCINE Unknown Completed [facility] [facility] TDAP (ADACEL) VACCINE Unknown Completed [facility] Influenza Virus Vaccine Quad .5 mL IM 6+ MO (FLUZONE/FLULAVAL/FL UARIX) Unknown Completed [facility] HPV Unknown Completed [facility] Meningococcal Polysaccharide (groups A, C, Y and W-135) conjugate vaccine (MCV4P) Unknown Completed [facility] Varicella (varivax)(chicken pox) Unknown Completed [facility] SARS-COV-2 COVID-19 VACCINE - (MODERNA) Unknown Completed [facility] SARS-COV-2 COVID-19 VACCINE - (MODERNA) Unknown Completed [facility] DTaP, Unspecified Formulation Unknown Completed [facility] DTaP, Unspecified Formulation Unknown Completed [facility] DTaP, Unspecified Formulation Unknown Completed [facility] DTaP, Unspecified Formulation Unknown Completed [facility] HEPATITIS A Unknown Completed [facility] Hep B, Adol or Pedi Dosage Unknown Completed [facility] Hep B, Adol or Pedi Dosage Unknown Completed [facility] HIB 4 Dose Schedule Unknown Completed [facility] HIB 4 Dose Schedule Unknown Completed [facility] MMR Unknown Completed [facility] IPV Unknown Completed [facility] IPV Unknown Completed [facility] Poliovirus, Live, Oral, Trivalent Unknown Completed [facility] Poliovirus, Live, Oral, Trivalent Unknown Completed [facility]ria [facility] Influenza Virus Vaccine Quad IM, Preserv and ABX Free 6 MO-64 YRS (FLUCELVAX) Unknown Completed [facility] HPV Unknown Completed [facility] Meningococcal Polysaccharide (groups A, C, Y and W-135) conjugate vaccine (MCV4P) Unknown Completed [facility] TDAP (ADACEL) VACCINE Unknown Completed [facility] Influenza Virus Vaccine Quad .5 mL IM 6+ MO (FLUZONE/FLULAVAL/FL UARIX) Unknown Completed [facility] TDAP (ADACEL) VACCINE Unknown Completed [facility] TDAP (ADACEL) VACCINE Unknown Completed [facility] Influenza Virus Vaccine Quad .5 mL IM 6+ MO (FLUZONE/FLULAVAL/FL UARIX) Unknown Completed [facility] HPV Unknown Completed [facility] Meningococcal Polysaccharide (groups A, C, Y and W-135) conjugate vaccine (MCV4P) Unknown Completed [facility] Varicella (varivax)(chicken pox) Unknown Completed [facility] SARS-COV-2 COVID-19 VACCINE - (MODERNA) Unknown Completed [facility] SARS-COV-2 COVID-19 VACCINE - (MODERNA) Unknown Completed [facility] DTaP, Unspecified Formulation Unknown Completed [facility] DTaP, Unspecified Formulation Unknown Completed [facility] DTaP, Unspecified Formulation Unknown Completed [facility] DTaP, Unspecified Formulation Unknown Completed [facility] HEPATITIS A Unknown Completed [facility] Hep B, Adol or Pedi Dosage Unknown Completed [facility] Hep B, Adol or Pedi Dosage Unknown Completed [facility] HIB 4 Dose Schedule Unknown Completed [facility] HIB 4 Dose Schedule Unknown Completed [facility] MMR Unknown Completed [facility] IPV Unknown Completed [facility] IPV Unknown Completed [facility] Poliovirus, Live, Oral, Trivalent Unknown Completed [facility] Poliovirus, Live, Oral, Trivalent Unknown Completed [facility]anus[facility]heria [facility] Influenza Virus Vaccine Quad IM, Preserv and ABX Free 6 MO-64 YRS (FLUCELVAX) Unknown Completed [facility] HPV Unknown Completed [facility] Meningococcal Polysaccharide (groups A, C, Y and W-135) conjugate vaccine (MCV4P) Unknown Completed [facility] TDAP (ADACEL) VACCINE Unknown Completed [facility] Influenza Virus Vaccine Quad .5 mL IM 6+ MO (FLUZONE/FLULAVAL/FL UARIX) Unknown Completed [facility] TDAP (ADACEL) VACCINE Unknown Completed [facility] TDAP (ADACEL) VACCINE Unknown Completed [facility] Influenza Virus Vaccine Quad .5 mL IM 6+ MO (FLUZONE/FLULAVAL/FL UARIX) Unknown Completed [facility] HPV Unknown Completed [facility] Meningococcal Polysaccharide (groups A, C, Y and W-135) conjugate vaccine (MCV4P) Unknown Completed [facility] Varicella (varivax)(chicken pox) Unknown Completed [facility] SARS-COV-2 COVID-19 VACCINE - (MODERNA) Unknown Completed [facility] SARS-COV-2 COVID-19 VACCINE - (MODERNA) Unknown Completed [facility] DTaP, Unspecified Formulation Unknown Completed [facility] DTaP, Unspecified Formulation Unknown Completed [facility] DTaP, Unspecified Formulation Unknown Completed [facility] DTaP, Unspecified Formulation Unknown Completed [facility] HEPATITIS A Unknown Completed [facility] Hep B, Adol or Pedi Dosage Unknown Completed [facility] Hep B, Adol or Pedi Dosage Unknown Completed [facility] HIB 4 Dose Schedule Unknown Completed [facility] HIB 4 Dose Schedule Unknown Completed [facility] MMR Unknown Completed [facility] IPV Unknown Completed [facility] IPV Unknown Completed [facility] Poliovirus, Live, Oral, Trivalent Unknown Completed [facility] Poliovirus, Live, Oral, Trivalent Unknown Completed [facility] Tetanus/Diptheria Unknown Completed [facility] TDAP Unknown Completed [facility] Influenza Virus Vaccine Quad IM, Preserv and ABX Free 6 MO-64 YRS (FLUCELVAX) Unknown Completed [facility] HPV Unknown Completed [facility] Meningococcal Polysaccharide (groups A, C, Y and W-135) conjugate vaccine (MCV4P) Unknown Completed [facility] TDAP (ADACEL) VACCINE Unknown Completed [facility] Influenza Virus Vaccine Quad .5 mL IM 6+ MO (FLUZONE/FLULAVAL/FL UARIX) Unknown Completed [facility] TDAP (ADACEL) VACCINE Unknown Completed [facility] TDAP (ADACEL) VACCINE Unknown Completed [facility] Influenza Virus Vaccine Quad .5 mL IM 6+ MO (FLUZONE/FLULAVAL/FL UARIX) Unknown Completed [facility] HPV Unknown Completed [facility] Meningococcal Polysaccharide (groups A, C, Y and W-135) conjugate vaccine (MCV4P) Unknown Completed [facility] Varicella (varivax)(chicken pox) Unknown Completed [facility] SARS-COV-2 COVID-19 VACCINE - (MODERNA) Unknown Completed [facility] SARS-COV-2 COVID-19 VACCINE - (MODERNA) Unknown Completed [facility] DTaP, Unspecified Formulation Unknown Completed [facility] DTaP, Unspecified Formulation Unknown Completed [facility] DTaP, Unspecified Formulation Unknown Completed [facility] DTaP, Unspecified Formulation Unknown Completed [facility] HEPATITIS A Unknown Completed [facility] Hep B, Adol or Pedi Dosage Unknown Completed [facility] Hep B, Adol or Pedi Dosage Unknown Completed [facility] HIB 4 Dose Schedule Unknown Completed [facility] HIB 4 Dose Schedule Unknown Completed [facility] MMR Unknown Completed [facility] IPV Unknown Completed [facility] IPV Unknown Completed [facility] Poliovirus, Live, Oral, Trivalent Unknown Completed [facility] Poliovirus, Live, Oral, Trivalent Unknown Completed [facility] Tetanus/Diptheria Unknown Completed [facility] TDAP Unknown Completed [facility] Influenza Virus Vaccine Quad IM, Preserv and ABX Free 6 MO-64 YRS (FLUCELVAX) Unknown Completed [facility] DTAP Unknown Completed [facility] HIB 4 Dose Schedule Unknown Completed [facility] Hep B, Adol or Pedi Dosage Unknown Completed [facility] MMR Unknown Completed [facility] Polio (IPV/OPV) Unknown Completed [facility] Varicella (varivax)(chicken pox) Unknown Completed [facility] DTAP Unknown Completed [facility] Hep B, Adol or Pedi Dosage Unknown Completed [facility] HIB 4 Dose Schedule Unknown Completed [facility] Polio (IPV/OPV) Unknown Completed [facility] MMR Unknown Completed [facility] Varicella (varivax)(chicken pox) Unknown Completed [facility] HPV Unknown Completed [facility] Meningococcal Polysaccharide (groups A, C, Y and W-135) conjugate vaccine (MCV4P) Unknown Completed [facility] TDAP (ADACEL) VACCINE Unknown Completed [facility] Influenza Virus Vaccine Quad .5 mL IM 6+ MO (FLUZONE/FLULAVAL/FL UARIX) Unknown Completed [facility] TDAP (ADACEL) VACCINE Unknown Completed [facility] TDAP (ADACEL) VACCINE Unknown Completed [facility] Influenza Virus Vaccine Quad .5 mL IM 6+ MO (FLUZONE/FLULAVAL/FL UARIX) Unknown Completed [facility] HPV Unknown Completed [facility] Meningococcal Polysaccharide (groups A, C, Y and W-135) conjugate vaccine (MCV4P) Unknown Completed [facility] Varicella (varivax)(chicken pox) Unknown Completed [facility] SARS-COV-2 COVID-19 VACCINE - (MODERNA) Unknown Completed [facility] SARS-COV-2 COVID-19 VACCINE - (MODERNA) Unknown Completed [facility] DTaP, Unspecified Formulation Unknown Completed [facility] DTaP, Unspecified Formulation Unknown Completed [facility] DTaP, Unspecified Formulation Unknown Completed [facility] DTaP, Unspecified Formulation Unknown Completed [facility] HEPATITIS A Unknown Completed [facility] Hep B, Adol or Pedi Dosage Unknown Completed [facility] Hep B, Adol or Pedi Dosage Unknown Completed [facility] HIB 4 Dose Schedule Unknown Completed [facility] HIB 4 Dose Schedule Unknown Completed [facility] MMR Unknown Completed [facility] IPV Unknown Completed [facility] IPV Unknown Completed [facility] Poliovirus, Live, Oral, Trivalent Unknown Completed [facility] Poliovirus, Live, Oral, Trivalent Unknown Completed [facility] Tetanus/Diptheria Unknown Completed [facility] TDAP Unknown Completed [facility] Influenza Virus Vaccine Quad IM, Preserv and ABX Free 6 MO-64 YRS (FLUCELVAX) Unknown Completed [facility] HPV Unknown Completed [facility] Meningococcal Polysaccharide (groups A, C, Y and W-135) conjugate vaccine (MCV4P) Unknown Completed [facility] TDAP (ADACEL) VACCINE Unknown Completed [facility] Influenza Virus Vaccine Quad .5 mL IM 6+ MO (FLUZONE/FLULAVAL/FL UARIX) Unknown Completed [facility] TDAP (ADACEL) VACCINE Unknown Completed [facility] TDAP (ADACEL) VACCINE Unknown Completed [facility] Influenza Virus Vaccine Quad .5 mL IM 6+ MO (FLUZONE/FLULAVAL/FL UARIX) Unknown Completed [facility] HPV Unknown Completed [facility] Meningococcal Polysaccharide (groups A, C, Y and W-135) conjugate vaccine (MCV4P) Unknown Completed [facility] Varicella (varivax)(chicken pox) Unknown Completed [facility] SARS-COV-2 COVID-19 VACCINE - (MODERNA) Unknown Completed [facility] SARS-COV-2 COVID-19 VACCINE - (MODERNA) Unknown Completed [facility] DTaP, Unspecified Formulation Unknown Completed [facility] DTaP, Unspecified Formulation Unknown Completed [facility] DTaP, Unspecified Formulation Unknown Completed [facility] DTaP, Unspecified Formulation Unknown Completed [facility] HEPATITIS A Unknown Completed [facility] Hep B, Adol or Pedi Dosage Unknown Completed [facility] Hep B, Adol or Pedi Dosage Unknown Completed [facility] HIB 4 Dose Schedule Unknown Completed [facility] HIB 4 Dose Schedule Unknown Completed [facility] MMR Unknown Completed [facility] IPV Unknown Completed [facility] IPV Unknown Completed [facility] Poliovirus, Live, Oral, Trivalent Unknown Completed [facility] Poliovirus, Live, Oral, Trivalent Unknown Completed [facility] Tetanus/Diptheria Unknown Completed [facility] TDAP Unknown Completed [facility] Influenza Virus Vaccine Quad IM, Preserv and ABX Free 6 MO-64 YRS (FLUCELVAX) Unknown Completed [facility] Vital Signs Vital Name Observation Time Observation Value Comments S ource Systolic blood pressure 2023-10-10 17:38:00 102 mm[Hg] [facility] Diastolic blood pressure 2023-10-10 17:38:00 78 mm[Hg] [facility] Heart rate 2023-10-10 17:38:00 84 /min [facility] Respiratory rate 2023-10-10 17:38:00 18 /min [facility] Body weight 2023-10-10 17:38:00 92.987 kg [facility] BMI 2023-10-10 17:38:00 34.11 kg/m2 [facility] Oxygen saturation in Arterial blood by Pulse oximetry 2023-10-10 17:38:00 99 /min [facility] Systolic blood pressure 2023-09-27 13:45:00 105 mm[Hg] [facility] Diastolic blood pressure 2023-09-27 13:45:00 52 mm[Hg] [facility] Heart rate 2023-09-27 13:45:00 63 /min [facility] Body temperature 2023-09-27 13:45:00 36.61 Roselia [facility] Respiratory rate 2023-09-27 13:45:00 16 /min [facility] Oxygen saturation in Arterial blood by Pulse oximetry 2023-09-27 13:45:00 99 /min [facility] Body weight 2023-09-26 14:00:00 103 kg [facility] BMI 2023-09-26 14:00:00 37.79 kg/m2 [facility] Systolic blood pressure 2023-09-18 21:43:00 119 mm[Hg] [facility] Diastolic blood pressure 2023-09-18 21:43:00 75 mm[Hg] [facility] Heart rate 2023-09-18 21:43:00 86 /min [facility] Body temperature 2023-09-18 21:43:00 36.78 Roselia [facility] Respiratory rate 2023-09-18 21:43:00 18 /min [facility] Body height 2023-09-18 21:43:00 165.1 cm [facility] Body weight 2023-09-18 21:43:00 102.241 kg [facility] BMI 2023-09-18 21:43:00 37.51 kg/m2 [facility] Oxygen saturation in Arterial blood by Pulse oximetry 2023-09-18 21:43:00 100 /min [facility] Systolic blood pressure 2023-09-16 09:30:00 118 mm[Hg] [facility] Diastolic blood pressure 2023-09-16 09:30:00 70 mm[Hg] [facility] Heart rate 2023-09-16 09:30:00 93 /min [facility] Body temperature 2023-09-16 09:30:00 36.83 Roselia [facility] Oxygen saturation in Arterial blood by Pulse oximetry 2023-09-16 09:30:00 100 /min [facility] Respiratory rate 2023-09-16 07:45:00 17 /min [facility] Systolic blood pressure 2023-09-11 22:18:00 125 mm[Hg] [facility] Diastolic blood pressure 2023-09-11 22:18:00 73 mm[Hg] [facility] Heart rate 2023-09-11 22:18:00 86 /min [facility] Body temperature 2023-09-11 22:18:00 37.28 Roselia [facility] Respiratory rate 2023-09-11 22:18:00 16 /min [facility] Body weight 2023-09-11 22:18:00 98.612 kg [facility] BMI 2023-09-11 22:18:00 36.18 kg/m2 [facility] Oxygen saturation in Arterial blood by Pulse oximetry 2023-09-11 22:18:00 100 /min [facility] Systolic blood pressure 2023-09-08 03:30:00 125 mm[Hg] [facility] Diastolic blood pressure 2023-09-08 03:30:00 65 mm[Hg] [facility] Heart rate 2023-09-08 03:30:00 92 /min [facility] Oxygen saturation in Arterial blood by Pulse oximetry 2023-09-08 03:30:00 100 /min [facility] Body temperature 2023-09-08 02:40:00 36.61 Roselia [facility] Respiratory rate 2023-09-08 02:40:00 17 /min [facility] Systolic blood pressure 2023-09-03 22:00:00 112 mm[Hg] [facility] Diastolic blood pressure 2023-09-03 22:00:00 70 mm[Hg] [facility] Heart rate 2023-09-03 22:00:00 109 /min [facility] Oxygen saturation in Arterial blood by Pulse oximetry 2023-09-03 22:00:00 100 /min [facility] Body temperature 2023-09-03 21:37:00 36.78 Roselia [facility] Respiratory rate 2023-09-03 21:37:00 16 /min [facility] Body height 2023-09-03 21:13:00 165.1 cm [facility] Body weight 2023-09-03 21:13:00 96.798 kg [facility] BMI 2023-09-03 21:13:00 35.51 kg/m2 [facility] Systolic blood pressure 2023-09-02 20:21:00 113 mm[Hg] [facility] Diastolic blood pressure 2023-09-02 20:21:00 67 mm[Hg] [facility] Heart rate 2023-09-02 20:21:00 93 /min [facility] Body temperature 2023-09-02 20:21:00 36.83 Roselia [facility] Respiratory rate 2023-09-02 20:21:00 16 /min [facility] Body height 2023-09-02 20:21:00 165.1 cm [facility] Body weight 2023-09-02 20:21:00 95.255 kg [facility] BMI 2023-09-02 20:21:00 34.95 kg/m2 [facility] Oxygen saturation in Arterial blood by Pulse oximetry 2023-09-02 20:21:00 97 /min [facility] Systolic blood pressure 2023-08-28 17:08:00 108 mm[Hg] [facility] Diastolic blood pressure 2023-08-28 17:08:00 69 mm[Hg] [facility] Heart rate 2023-08-28 17:08:00 90 /min [facility] Body temperature 2023-08-28 17:08:00 36.5 Roselia [facility] Body height 2023-08-28 17:08:00 165.1 cm [facility] Body weight 2023-08-28 17:08:00 94.439 kg [facility] BMI 2023-08-28 17:08:00 34.65 kg/m2 [facility] Heart rate 2023-08-22 18:00:00 84 /min [facility] in Arterial blood by Pulse oximetry 2023-08-22 18:00:00 99 /min [facility] Systolic blood pressure 2023-08-22 17:00:00 123 mm[Hg] [facility] Diastolic blood pressure 2023-08-22 17:00:00 63 mm[Hg] [facility] Body temperature 2023-08-22 17:00:00 36.06 Roselia [facility] Respiratory rate 2023-08-22 17:00:00 16 /min [facility] Body weight 2023-08-20 21:50:00 99.542 kg [facility] BMI 2023-08-20 21:50:00 36.52 kg/m2 [facility] Body height 2023-08-20 21:01:00 165.1 cm [facility] Systolic blood pressure 2023-08-04 16:25:00 108 mm[Hg] [facility] Diastolic blood pressure 2023-08-04 16:25:00 64 mm[Hg] [facility] Heart rate 2023-08-04 16:25:00 87 /min [facility] Body temperature 2023-08-04 16:25:00 36.56 Roselia [facility] Respiratory rate 2023-08-04 16:25:00 18 /min [facility] Body height 2023-08-04 16:25:00 165.1 cm [facility] Body weight 2023-08-04 16:25:00 94.802 kg [facility] BMI 2023-08-04 16:25:00 34.78 kg/m2 [facility] Oxygen saturation in Arterial blood by Pulse oximetry 2023-08-04 16:25:00 99 /min [facility] Heart rate 2023-07-29 09:45:00 92 /min [facility] Oxygen saturation in Arterial blood by Pulse oximetry 2023-07-29 09:45:00 100 /min [facility] Body height 2023-07-29 09:38:00 165.1 cm [facility] Body weight 2023-07-29 09:38:00 97.614 kg [facility] BMI 2023-07-29 09:38:00 35.81 kg/m2 [facility] Systolic blood pressure 2023-07-29 09:30:00 119 mm[Hg] [facility] Diastolic blood pressure 2023-07-29 09:30:00 64 mm[Hg] [facility] Body temperature 2023-07-29 09:30:00 36.67 Roselia [facility] Heart rate 2023-06-14 20:00:00 63 /min [facility] Oxygen saturation in Arterial blood by Pulse oximetry 2023-06-14 20:00:00 100 /min [facility] Systolic blood pressure 2023-06-14 18:02:00 112 mm[Hg] [facility] Diastolic blood pressure 2023-06-14 18:02:00 58 mm[Hg] [facility] Body temperature 2023-06-14 18:02:00 36.89 Roselia [facility] Respiratory rate 2023-06-14 18:02:00 16 /min [facility] Body height 2023-06-14 17:49:00 165.1 cm [facility] Body weight 2023-06-14 17:49:00 93.35 kg [facility] BMI 2023-06-14 17:49:00 34.25 kg/m2 [facility] Systolic blood pressure 2023-05-03 22:46:00 117 mm[Hg] [facility] Diastolic blood pressure 2023-05-03 22:46:00 70 mm[Hg] [facility] Heart rate 2023-05-03 22:46:00 94 /min [facility] Body temperature 2023-05-03 22:46:00 36.67 Roselia [facility] Respiratory rate 2023-05-03 22:46:00 18 /min [facility] Oxygen saturation in Arterial blood by Pulse oximetry 2023-05-03 22:46:00 99 /min [facility] Heart rate 2023-04-18 21:00:00 77 /min [facility] Oxygen saturation in Arterial blood by Pulse oximetry 2023-04-18 21:00:00 100 /min [facility] Systolic blood pressure 2023-04-18 20:00:00 138 mm[Hg] [facility] Diastolic blood pressure 2023-04-18 20:00:00 75 mm[Hg] [facility] Body temperature 2023-04-18 17:42:00 37.33 Roselia [facility] Respiratory rate 2023-04-18 17:42:00 16 /min [facility] Body height 2023-04-18 17:42:00 165.1 cm [facility] Body weight 2023-04-18 17:42:00 92.987 kg [facility] BMI 2023-04-18 17:42:00 34.11 kg/m2 [facility] Systolic blood pressure 2023-04-02 13:43:00 122 mm[Hg] [facility] Diastolic blood pressure 2023-04-02 13:43:00 62 mm[Hg] [facility] Heart rate 2023-04-02 13:43:00 98 /min [facility] Body temperature 2023-04-02 13:43:00 36.61 Roselia [facility] Respiratory rate 2023-04-02 13:43:00 18 /min [facility] Body height 2023-04-02 13:43:00 165.1 cm [facility] Body weight 2023-04-02 13:43:00 94.575 kg [facility] BMI 2023-04-02 13:43:00 34.70 kg/m2 [facility] Systolic blood pressure 2023-03-11 18:08:00 119 mm[Hg] [facility] Diastolic blood pressure 2023-03-11 18:08:00 68 mm[Hg] [facility] Heart rate 2023-03-11 18:08:00 87 /min [facility] Body temperature 2023-03-11 18:08:00 36.78 Roselia [facility] Respiratory rate 2023-03-11 18:08:00 18 /min [facility] Body height 2023-03-11 18:08:00 165.1 cm [facility] Body weight 2023-03-11 18:08:00 93.044 kg [facility] BMI 2023-03-11 18:08:00 34.13 kg/m2 [facility] Systolic blood pressure 2023-02-11 18:05:00 112 mm[Hg] [facility] Diastolic blood pressure 2023-02-11 18:05:00 64 mm[Hg] [facility] Heart rate 2023-02-11 18:05:00 73 /min [facility] Body temperature 2023-02-11 18:05:00 36.78 Roselia [facility] Respiratory rate 2023-02-11 18:05:00 18 /min [facility] Body height 2023-02-11 18:05:00 165.1 cm [facility] Body weight 2023-02-11 18:05:00 88.508 kg [facility] BMI 2023-02-11 18:05:00 32.47 kg/m2 [facility] Systolic blood pressure 2022-01-17 03:00:00 119 mm[Hg] [facility] Diastolic blood pressure 2022-01-17 03:00:00 62 mm[Hg] [facility] Heart rate 2022-01-17 03:00:00 68 /min [facility] Respiratory rate 2022-01-17 03:00:00 16 /min [facility] Oxygen saturation in Arterial blood by Pulse oximetry 2022-01-17 03:00:00 100 /min [facility] Body temperature 2022-01-17 02:03:00 37.28 Roselia [facility] Body height 2022-01-17 02:03:00 165.1 cm [facility] Body weight 2022-01-17 02:03:00 90.719 kg [facility] BMI 2022-01-17 02:03:00 33.28 kg/m2 [facility] Systolic blood pressure 2019-05-27 20:39:00 107 mm[Hg] [facility] Diastolic blood pressure 2019-05-27 20:39:00 63 mm[Hg] [facility] Heart rate 2019-05-27 20:39:00 77 /min [facility] Body temperature 2019-05-27 20:39:00 36.94 Roselia [facility] Respiratory rate 2019-05-27 20:39:00 18 /min [facility] Body height 2019-05-27 20:39:00 165.1 cm [facility] Body weight 2019-05-27 20:39:00 98.431 kg [facility] BMI 2019-05-27 20:39:00 36.11 kg/m2 [facility] Systolic blood pressure 2019-05-27 20:39:00 107 mm[Hg] [facility] Diastolic blood pressure 2019-05-27 20:39:00 63 mm[Hg] [facility] Heart rate 2019-05-27 20:39:00 77 /min [facility] Body temperature 2019-05-27 20:39:00 36.94 Roselia [facility] Respiratory rate 2019-05-27 20:39:00 18 /min [facility] Body height 2019-05-27 20:39:00 165.1 cm [facility] Body weight 2019-05-27 20:39:00 98.431 kg [facility] BMI 2019-05-27 20:39:00 36.11 kg/m2 [facility] Systolic blood pressure 2019-05-17 21:39:00 114 mm[Hg] [facility] Diastolic blood pressure 2019-05-17 21:39:00 71 mm[Hg] [facility] Heart rate 2019-05-17 21:39:00 103 /min [facility] Body temperature 2019-05-17 21:39:00 37.11 Roselia [facility] Respiratory rate 2019-05-17 21:39:00 18 /min [facility] Body height 2019-05-17 21:39:00 165.1 cm [facility] Body weight 2019-05-17 21:39:00 100.154 kg [facility] BMI 2019-05-17 21:39:00 36.74 kg/m2 [facility] Systolic blood pressure 2019-05-17 21:39:00 114 mm[Hg] [facility] Diastolic blood pressure 2019-05-17 21:39:00 71 mm[Hg] [facility] Heart rate 2019-05-17 21:39:00 103 /min [facility] Body temperature 2019-05-17 21:39:00 37.11 Roselia [facility] Respiratory rate 2019-05-17 21:39:00 18 /min [facility] Body height 2019-05-17 21:39:00 165.1 cm [facility] Body weight 2019-05-17 21:39:00 100.154 kg [facility] BMI 2019-05-17 21:39:00 36.74 kg/m2 [facility] Systolic blood pressure 2019-05-04 18:09:00 135 mm[Hg] [facility] Diastolic blood pressure 2019-05-04 18:09:00 68 mm[Hg] [facility] Heart rate 2019-05-04 18:09:00 96 /min [facility] Body temperature 2019-05-04 18:09:00 36.78 Roselia [facility] Respiratory rate 2019-05-04 18:09:00 22 /min [facility] Oxygen saturation in Arterial blood by Pulse oximetry 2019-05-04 18:09:00 100 /min [facility] Systolic blood pressure 2019-04-29 21:00:00 127 mm[Hg] [facility] Diastolic blood pressure 2019-04-29 21:00:00 68 mm[Hg] [facility] Heart rate 2019-04-29 21:00:00 87 /min [facility] Body temperature 2019-04-29 21:00:00 36.39 Roselia [facility] Respiratory rate 2019-04-29 21:00:00 20 /min [facility] Body height 2019-04-29 21:00:00 165.1 cm [facility] Body weight 2019-04-29 21:00:00 98.431 kg [facility] BMI 2019-04-29 21:00:00 36.11 kg/m2 [facility] Procedures Procedure Date / Time Performed Performing Clinician Source CBC WITH DIFF 2023-09-27 00:33:00 CruzKory [facility] CENTRAL NEURAXIAL BLOCK 2023-09-25 09:00:00 Xenia Venegas [facility] URINE DRUG (IMMUNOASSAY) - COMPREHENSIVE DRUG SCREEN 2023-09-25 08:17:00 CruzKory [facility] CBC WITH DIFF 2023-09-25 08:05:00 [facility]TIGEN 2023-09-25 08:05:00 Cruz [facility] HB ABO GROUPING 2023-09-25 08:05:00 Anthony Kory [facility] RHO (D) IMMUNE GLOBULIN 2023-09-25 08:05:00 Cruz [facility] ADC OR BRIDGER ONLY - RPR 2023-09-25 08:05:00 Anthony [facility] HIV 1/2 AG-AB WITH REFLEX 2023-09-25 08:05:00 Cruz [facility] URINE DRUG (IMMUNOASSAY) - COMPREHENSIVE DRUG SCREEN 2023-09-18 22:29:00 Anthony Kory [facility] POCT URINALYSIS W/O SPECIFIC GRAVITY 2023-09-18 00:00:00 Cruz [facility] ASSIGNMENT OF BENEFITS 2023-09-16 10:25:05 Docto r Unassigned, Rhodhiss [facility] CONSENT/REFUSAL FOR DIAGNOSIS AND TREATMENT 2023-09-16 10:23:26 Doctor Unassigned, Rhodhiss [facility] CBC WITH DIFF 2023-09-16 09:30:00 Jordan Wilkinson [facility] COMP. METABOLIC PANEL (36633) 2023-09-16 08:49:00 Ariela Wilkinson [facility] >14 WEEKS US LIMITED 2023-09-11 22:52:27 AnthonyKory Pedro [facility] POCT URINALYSIS W/O SPECIFIC GRAVITY 2023-09-11 00:00:00 AnthonyKory Pedro [facility] ADC ONLY - FERN TEST 2023-09-08 02:41:00 Mary Avina [facility] POCT URINALYSIS W/O SPECIFIC GRAVITY 2023-08-28 00:00:00 AnthonyKory Pedro [facility] SECOND AND THIRD TRIMESTER ULTRASOUND 2023-08-22 19:52:00 Krystal Low [facility] POCT GLUCOSE (AUTOMATED) 2023-08-22 01:43:00 Eloy Chavez [facility] TRANSTHORACIC ECHO (TTE) COMPLETE 2023-08-21 14:54:52 Reynaldo [facility] HB ECG ROUTINE & RHYTHM STRIP 2023-08-21 14:04:01 Reynaldo [facility] THYROID STIMULATING HORMONE 2023-08-21 13:21:00 Mayra Welch [facility] BASIC METABOLIC PANEL (NA, K, CL, CO2, GLUCOSE, BUN, CREATININE, CA) 2023-08-21 13:21:00 Mayra Welch [facility] GLYCOSYLATED HEMOGLOBIN (A1C) 2023-08-21 13:21:00 Tito Pedersen [facility] RUBELLA SCREEN IGG 2023-08-21 13:21:00 [facility] 2023-08-21 13:21:00 Tito Pedersen [facility] HEPATITIS B SURFACE ANTIGEN 2023-08-21 13:21:00 Tito Pedersen [facility] HB ABO GROUPING 2023-08-21 13:21:00 Tito Pedersen [facility] HIV 1/2 AG-AB WITH REFLEX 2023-08-21 13:21:00 Tito Pedersen [facility] SYPHILIS IGG/IGM 2023-08-21 13:21:00 [facility] 2023-08-21 01:40:00 Kory Cruz am [facility] ACTIVATED PARTIAL THRMPLAS BLANCA 2023-08-21 01:40:00 Anthony Koryhadley Vasquez [facility] URINE CULTURE 2023-08-21 01:31:00 Kory Cruz [facility] URINALYSIS 2023-08-21 01:16:00 Kroy Cruz [facility] ADC CLC OR LCC ONLY - WET PREP 2023-08-21 01:16:00 Anthony Kory [facility] GROUP B STREPTOCOCCUS BY PCR 2023-08-21 01:16:00 Kory Cruz [facility] CBC WITH DIFF 2023-08-21 01:15:00 Kory Cruz [facility] URINE DRUG (IMMUNOASSAY) - COMPREHENSIVE DRUG SCREEN 2023-08-21 01:14:00 Kory Cruz [facility] HB ABO GROUPING 2023-08-21 01:14:00 Kory Cruz [facility] GC & CHLAMYDIA AMPLIFIED ASSAY 2023-08-21 01:13:00 Anthony Kory [facility] US BIOPHYSICAL PROFILE 2023-08-20 23:58:11 Anthony Kory [facility] US PELVIS > 14 WEEKS 2023-08-20 23:57:55 Anthony [facility] XR SHOULDER 2+ VW LEFT 2023-08-20 21:31:00 Selwyn Quintero [facility] HOSPITAL ADMISSION 2023-08-20 06:01:00 Doctor Un assigned, Rhodhiss [facility] TDAP VACCINE, >11 YRS, IM 2023-08-04 19:02:35 Anthony [facility] FLU VACC (), 6 MO-64 YRS, .5ML, IM, QUAD (FLUCELVAX) 2023-08-04 19:02:35 Anthony Kory [facility] POCT URINALYSIS W/O SPECIFIC GRAVITY 2023-08-04 00:00:00 Anthony Kory [facility] URINE DRUG (IMMUNOASSAY) - COMPREHENSIVE DRUG SCREEN 2023-07-29 09:49:00 Irlanda Wilkinsonsol [facility] URINALYSIS 2023-07-29 09:49:00 Ariela Wilkinson [facility] US PELVIS > 14 WEEKS 2023-06-14 20:12:00 Kory Cruz [facility] URINALYSIS 2023-06-14 18:55:00 Kory Cruz [facility] ADC ONLY - FERN TEST 2023-06-14 18:55:00 Kory Cruz [facility] ASSIGNMENT OF BENEFITS 2023-06-14 17:37:47 Docto r Unassigned, Rhodhiss [facility] CONSENT/REFUSAL FOR DIAGNOSIS AND TREATMENT 2023-06-14 17:36:34 Doctor Unassigned, Rhodhiss [facility] SECOND AND THIRD TRIMESTER ULTRASOUND 2023-05-28 21:05:00 Krystal Low [facility] SECOND AND THIRD TRIMESTER ULTRASOUND 2023-05-28 20:25:00 Krystal Low [facility] URINE DRUG (IMMUNOASSAY) - COMPREHENSIVE DRUG SCREEN 2023-04-18 18:48:00 Jaja Ariela [facility] ADC CLC OR LCC ONLY - WET PREP 2023-04-18 18:48:00 [facility] CONSENT/REFUSAL FOR DIAGNOSIS AND TREATMENT 2023-04-18 16:42:47 Doctor Unassigned, Rhodhiss [facility] POCT URINALYSIS 2023-04-02 13:44:00 Krystal Low [facility] EXTERNAL PROVIDER RECORDS 2023-03-21 05:01:00 Doctor Unassigned, Rhodhiss [facility] POCT URINALYSIS 2023-03-11 18:00:00 Krystal Low [facility] AUTHORIZATION FOR RELEASE OF PHI 2023-03-11 05:01:00 Doctor Unassigned, Rhodhiss [facility] POCT URINALYSIS W/O SPECIFIC GRAVITY 2023-02-11 18:03:00 Krystal Low [facility] POCT TEST 2023-02-11 18:02:00 Maranda Bright Sears [facility] REPORT OF 2023-02-11 05:01:00 Doctor Kiran harper, Rhodhiss [facility] LIPASE 2022-01-17 03:09:00 Yvonne Siddiqi [facility] COMP. METABOLIC PANEL (33958) 2022-01-17 03:09:00 Yvonne Siddiqi [facility] CBC WITH DIFF 2022-01-17 03:09:00 Yvonne Siddiqi [facility] POCT TEST 2022-01-17 02:14:00 Lakhwinder Weiner [facility] URINALYSIS 2022-01-17 02:10:00 [facility] NOTICE OF PRIVACY PRACTICES 2022-01-17 01:36:28 Doctor Unassigned, Rhodhiss [facility] CONSENT/REFUSAL FOR DIAGNOSIS AND TREATMENT 2022-01-17 01:36:18 Doctor Unassigned, Rhodhiss [facility] TDAP (ADACEL) IMMUNIZATION 2019-05-27 20:41:37 Josy Chaudhary [facility] US ABDOMEN LIMITED 2019-05-17 22:45:16 Josy Chaudhary [facility] ASSIGNMENT OF BENEFITS 2019-05-17 22:12:10 Docto r Unassigned, Rhodhiss [facility] URINALYSIS 2019-05-04 18:55:00 Kory Cruz [facility] ADC CLC OR LCC ONLY - WET PREP 2019-05-04 18:55:00 Kory Cruz [facility] ADC ONLY - FERN TEST 2019-05-04 18:54:00 Kory Cruz [facility] CONSENT/REFUSAL FOR DIAGNOSIS AND TREATMENT 2019-05-04 17:47:16 Doctor Unassigned, Rhodhiss [facility] Encounters Start Date/Time End Date/Time Encounter Type Admission Type Attending [facility] Care Facility Care Department Encounter ID Source 2023-09-16 06:18:56 Outpatient X [facility] [id number] [facility] 2023-07-29 06:14:02 Outpatient X [facility] [id number] [facility] 2023-04-18 17:24:48 Outpatient X [facility] [id number] [facility] 2022-08-02 05:16:57 Emergency HFD HFD [id number] [facility] ent 2021-07-08 14:21:14 Outpatient [facility] [id number] [facility] 2023-11-28 00:00:00 2023-11-28 00:00:00 Patient Secure Msg Doctor Unassigned, Rhodhiss [facility] 1.2.840.114 350.1.13.10 4.2.7.2.686 [id number] 134 [id number] [facility] 2023-11-21 00:00:00 2023-11-21 00:00:00 Telephone Kory Cruz [facility] 1.2.840.114 350.1.13.10 4.2.7.2.686 [id number] [facility] 2023-11-15 00:00:00 2023-11-15 00:00:00 Telephone Kory Cruz [facility] 1.2.840.114 350.1.13.10 4.2.7.2.686 [id number] [facility] 2023-10-10 10:30:00 2023-10-10 12:02:47 Outpatient R KORY CRUZ [facility] [id number] [facility] 2023-10-10 10:30:00 2023-10-10 12:02:47 Routine Visit Kory Cruz [facility] 1.2.840.114 350.1.13.10 4.2.7.2.686 [id number] 134 [id number] [facility] 2023-10-10 00:00:00 2023-10-10 00:00:00 Patient Secure Msg Doctor Unassigned, Rhodhiss [facility] 1.2840.114 350.1.13.10 4.2.7.2.686 [id number] [facility] 2023-10-09 00:00:00 2023-10-09 00:00:00 Telephone Kory Cruz [facility] 1.2.840.114 350.1.13.10 4.2.7.2.686 [id number] [facility] 2023-10-09 00:00:00 2023-10-09 00:00:00 Patient Secure Msg Doctor Unassigned, Rhodhiss [facility] 1.2840.114 350.1.13.10 4.2.7.2.686 [id number] [facility] 2023-09-25 01:05:00 2023-09-27 12:55:00 Inpatient X KORY CRUZ [facility] [id number] [facility] 2023-09-25 01:05:00 2023-09-27 12:55:00 Hospital Encounter Kory Cruz [facility] 1.2840.114 350.1.13.10 4.2.7.2.686 [id number] [facility] 2023-09-25 16:00:00 2023-09-25 16:00:00 Outpatient R KORY CRUZ [facility] [id number] [facility] 2023-09-25 03:00:00 2023-09-25 08:52:00 Anesthesia Event Xenia Angel Michelle [facility] 1.2.840.114 350.1.13.10 4.2.7.2.686 [id number] [facility] 2023-09-24 00:00:00 2023-09-24 00:00:00 Telephone Kory Cruz [facility] 1.2.840.114 350.1.13.10 4.2.7.2.686 [id number] [facility] 2023-09-19 00:10:00 2023-09-19 00:10:00 Outpatient P CANO-EVER S, ARIELA CANO-EVER S, ARIELA [facility] [id number] [facility] 2023-09-18 15:15:00 2023-09-18 16:21:53 Outpatient R KORY CRUZ [facility] [id number] [facility] 2023-09-18 15:15:00 2023-09-18 16:21:53 Routine Visit Kory Cruz [facility] 1..840.114 350.1.13.10 4.2.7.2.686 [id number] [facility] 2023-09-16 01:28:00 2023-09-16 03:45:00 Outpatient X CANO-EVER S, ARIELA CANO-EVER S, ARIELA [facility] [id number] [facility] 2023-09-16 01:28:00 2023-09-16 03:45:00 Emergency Cano-Ever s, Ariela [facility] 1..840.114 350.1.13.10 4.2.7.2.686 [id number] [facility] 2023-09-11 16:15:00 2023-09-11 16:50:18 Outpatient R KORY CRUZ [facility] [id number] [facility] 2023-09-11 16:15:00 2023-09-11 16:50:18 Routine Visit Kory Cruz [facility] 1.2.840.114 350.1.13.10 4.2.7.2.686 [id number] [facility] 2023-09-11 14:45:00 2023-09-11 15:00:00 Watchmaker Apprentice Visit 2, Adc Lab Kory Cruz [facility] 1.2.840.114 350.1.13.10 4.2.7.2.686 [id number] [facility] 2023-09-11 11:00:00 2023-09-11 11:00:00 Outpatient R KORY CRUZ [facility] [id number] [facility] 2023-09-09 16:00:00 2023-09-09 16:00:00 Outpatient R KORY CRUZ [facility] [id number] [facility] 2023-09-08 00:00:00 2023-09-08 00:00:00 Telephone Kory Crzu [facility] 1.2.840.114 350.1.13.10 4.2.7.2.686 [id number] [facility] 2023-09-07 20:22:00 2023-09-07 22:06:00 Outpatient X MARY AVINA [facility] [id number] [facility] 2023-09-07 20:22:00 2023-09-07 22:06:00 Emergency Mary Avina [facility] 1.2.840.114 350.1.13.10 4.2.7.2.686 [id number] [facility] 2023-09-03 15:18:00 2023-09-03 17:33:00 Outpatient X KORY CRUZ [facility] [id number] [facility] 2023-09-03 15:18:00 2023-09-03 17:33:00 Emergency Kory Cruz [facility] 1.2.840.114 350.1.13.10 4.2.7.2.686 [id number] [facility] 2023-09-02 14:23:00 2023-09-02 15:18:00 Outpatient P MARY AVINA [facility] [id number] [facility] 2023-09-02 14:23:00 2023-09-02 15:18:00 Hospital Encounter Mary Avina [facility] 1.0.114 350.1.13.10 4.2.7.2.686 [id number] [facility] 2023-08-28 10:45:00 2023-08-28 11:28:38 Outpatient R KORY CRUZ [facility] [id number] [facility] 2023-08-28 10:45:00 2023-08-28 11:28:38 Routine Visit Kory Cruz [facility] 1..114 350.1.13.10 4.2.7.2.686 [id number] [facility] 2023-08-20 15:22:00 2023-08-22 16:30:00 Outpatient X ELOY CHAVEZ [facility] [id number] [facility] 2023-08-20 15:22:00 2023-08-22 16:30:00 Emergency QuinteroNacho Vien Cam Omere, Chasey Ikuvbogie Pacheco, Luis Diego [facility] 1..114 350.1.13.10 4.2.7.2.686 [id number] [facility] 2023-08-22 13:00:00 2023-08-22 13:54:45 Watchmaker Apprentice Visit 2, [facility] Kristal Alfredo Shannon M [facility] 1..114 350.1.13.10 4.2.7.2.686 [id number] [facility] 2023-08-21 20:00:01 2023-08-21 20:00:01 Anesthesia Event Xenia Angel [facility] 1.840.114 350.1.13.10 4.2.7.2.686 [id number] [facility] 2023-08-18 14:15:00 2023-08-18 14:15:00 Outpatient R ANTHONY KORY [facility] [id number] [facility] 2023-08-08 13:45:00 2023-08-08 13:45:00 Outpatient R [facility] [id number] [facility] 2023-08-06 00:00:00 2023-08-06 00:00:00 Patient Secure Msg Doctor Unassigned, Rhodhiss [facility] 1.20.114 350.1.13.10 4.2.7.2.686 [id number] [facility] 2023-08-04 10:00:00 2023-08-04 11:00:40 Outpatient R KORY CRUZ [facility] [id number] [facility] 2023-08-04 10:00:00 2023-08-04 11:00:40 Initial Visit Kory Cruz Pedro [facility] 1.84.114 350.1.13.10 4.2.7.2.686 [id number] [facility] 2023-07-29 03:10:00 2023-07-29 06:05:00 Outpatient X CANO-EVER S, ARIELA CANO-EVER S, ARIELA [facility] [id number] [facility] 2023-07-29 03:10:00 2023-07-29 06:05:00 Emergency Cano-Ever s, Ariela [facility] 1.2840.114 350.1.13.10 4.2.7.2.686 [id number] [facility] 2023-07-27 00:00:00 2023-07-27 00:00:00 Nurse Triage Suyapa Armstrong [facility] 1.2.840.114 350.1.13.10 4.2.7.2.686 [id number] [facility] 2023-06-21 00:00:00 2023-06-21 00:00:00 Krystal Ortega [facility] 1.2.840.114 350.1.13.10 4.2.7.2.686 [id number] [facility] 2023-06-14 12:51:00 2023-06-14 15:30:00 Outpatient X KORY CRUZ [facility] [id number] [facility] 2023-06-14 12:51:00 2023-06-14 15:30:00 Emergency Kory Cruz [facility] 1.840.114 350.1.13.10 4.2.7.2.686 [id number] [facility] 2023-06-14 00:00:00 2023-06-14 00:00:00 Nurse Triage Heidi Christianson [facility] 1.840.114 350.1.13.10 4.2.7.2.686 [id number] [facility] 2023-06-14 00:00:00 2023-06-14 00:00:00 Orders Only Doctor Unassigned, Rhodhiss [facility] 1.2840.114 350.1.13.10 4.2.7.2.686 [id number] [facility] 2023-06-03 00:00:00 2023-06-03 00:00:00 Telephone Huy Mendoza [facility] ST[facility]FF [facility] 1.2840.114 350.1.13.10 4.2.7.2.686 [id number] [facility] 2023-06-02 15:30:00 2023-06-02 15:30:00 Outpatient R TOMIDANEALEKSANDRELISHUY [facility] [id number] [facility] 2023-05-30 00:00:00 2023-05-30 00:00:00 Case Management Krystal Low [facility] STAFF [facility] 1.2840.114 350.1.13.10 4.2.7.2.686 [id number] [facility] 2023-05-28 14:00:00 2023-05-28 15:19:04 Outpatient P SHELLEY SANCHEZ [facility] [id number] [facility] 2023-05-28 14:00:00 2023-05-28 15:19:04 Watchmaker Apprentice Visit Ultrasound, [facility] Shelley Sanchez [facility] STAFF [facility] 1.2840.114 350.1.13.10 4.2.7.2.686 [id number] [facility] 2023-05-21 00:00:00 2023-05-21 00:00:00 Refill Krystal Low [facility] STAFF [facility] 1.2.840.114 350.1.13.10 4.2.7.2.686 [id number] [facility] 2023-05-21 00:00:00 2023-05-21 00:00:00 Telephone Krystal Low [facility] STAFF [facility] 1.2.840.114 350.1.13.10 4.2.7.2.686 [id number] [facility] 2023-05-20 15:30:00 2023-05-20 15:30:00 Outpatient R HUY MENDOZA [facility] [id number] [facility] 2023-05-16 09:45:00 2023-05-16 09:45:00 Outpatient R KRYSTAL LOW [facility] [id number] [facility] 2023-05-03 17:42:00 2023-05-03 18:57:00 Outpatient X CANO-EVER S, ARIELA CANO-EVER S, ARIELA [facility] DERRICK [id number] [facility] 2023-05-03 17:42:00 2023-05-03 18:57:00 Emergency Cano-Ever s, Ariela [facility] 1..840.114 350.1.13.10 4.2.7.2.686 [id number] [facility] 2023-04-30 10:45:00 2023-04-30 10:45:00 Outpatient R KRYSTAL LOW [facility] [id number] [facility] 2023-04-18 12:18:00 2023-04-18 16:05:00 Outpatient X CANO-EVER S, ARIELA CANO-EVER S, ARIELA [facility] [id number] [facility] 2023-04-18 12:18:00 2023-04-18 16:05:00 Emergency Cano-Ever sIrlandaAriela [facility] 1..840.114 350.1.13.10 4.2.7.2.686 [id number] [facility] 2023-04-17 00:00:00 2023-04-17 00:00:00 Telephone Krystal Low [facility] STAFF ATT[facility]NEY [facility] 1.2.840.114 350.1.13.10 4.2.7.2.686 [id number] [facility] 2023-04-17 00:00:00 2023-04-17 00:00:00 Patient Secure Msg Krystal Low [facility] STAFF ATTORNEY [facility] 1.2.840.114 350.1.13.10 4.2.7.2.686 [id number] [facility] 2023-04-08 12:45:00 2023-04-08 12:45:00 Outpatient R KRYSTAL LOW [facility] [id number] [facility] 2023-04-07 00:00:00 2023-04-07 00:00:00 Case Management Krystal Low [facility] STAFF [facility] 1..840.114 350.1.13.10 4.2.7.2.686 [id number] [facility] 2023-04-03 10:30:00 2023-04-03 10:30:00 Outpatient R KRYSTAL LOW [facility] [id number] [facility] 2023-04-03 00:00:00 2023-04-03 00:00:00 Refill Krystal Low [facility] STAFF [facility] 1.2.840.114 350.1.13.10 4.2.7.2.686 [id number] [facility] 2023-04-02 08:45:00 2023-04-02 09:15:48 Outpatient R KRYSTAL LOW [facility] [id number] [facility] 2023-04-02 08:45:00 2023-04-02 09:15:48 Routine Visit Krystal Low [facility] STAFF [facility] 1..840.114 350.1.13.10 4.2.7.2.686 [id number] [facility] 2023-03-21 00:00:00 2023-03-21 00:00:00 Case Management KennedyKrystal george [facility] STAFF ATTORNEY [facility] CH[facility] 1.840.114 350.1.13.10 4.2.7.2.686 [id number] [facility] 2023-03-21 00:00:00 2023-03-21 00:00:00 Orders Only Doctor Unassigned, Rhodhiss [facility] 1.2840.114 350.1.13.10 4.2.7.2.686 [id number] [facility] 2023-03-19 00:00:00 2023-03-19 00:00:00 [facility] 1.840.114 350.1.13.10 4.2.7.2.686 [id number] [facility] 2023-03-11 12:45:00 2023-03-11 13:26:33 Outpatient R KENNEDYVERONICA GEORGEA [facility] [id number] [facility] 2023-03-11 12:45:00 2023-03-11 13:26:33 Routine Visit Kennedylobo Krystal Sears [facility] 1.840.114 350.1.13.10 4.2.7.2.686 [id number] [facility] 2023-03-11 00:00:00 2023-03-11 00:00:00 Orders Only Doctor Unassigned, Rhodhiss [facility] 1.2840.114 350.1.13.10 4.2.7.2.686 [id number] [facility] 2023-02-18 00:00:00 2023-02-18 00:00:00 [facility] CHILD [facility] 1.2840.114 350.1.13.10 4.2.7.2.686 [id number] [facility] 2023-02-14 00:00:00 2023-02-14 00:00:00 Case Management Krystal Low [facility] STAFF [facility] 1.2.840.114 350.1.13.10 4.2.7.2.686 [id number] [facility] 2023-02-14 00:00:00 2023-02-14 00:00:00 Telephone Krystal Low [facility] STAFF [facility] 1.2.840.114 350.1.13.10 4.2.7.2.686 [id number] [facility] 2023-02-11 13:00:00 2023-02-11 14:23:32 Initial Visit Krystal Low [facility] STAFF [facility] 1.2.840.114 350.1.13.10 4.2.7.2.686 [id number] [facility] 2023-02-11 12:30:00 2023-02-11 13:21:27 Outpatient R KENNEDYBRIGHT GEORGENDA [facility] [id number] [facility] 2023-02-11 00:00:00 2023-02-11 00:00:00 Orders Only Doctor Unassigned, Rhodhiss [facility] 1.2.840.114 350.1.13.10 4.2.7.2.686 [id number] [facility] 2023-02-10 08:30:00 2023-02-10 08:30:00 Outpatient R HUY MENDOZA [facility] [id number] [facility] 2022-01-16 21:05:00 2022-01-17 00:11:00 Emergency X YVONNE SIDDIQI [facility] ERT [id number] [facility] 2022-01-16 21:05:00 2022-01-17 00:11:00 Emergency Yvonne Siddiqi [facility] 1.2.840.114 350.1.13.10 4.2.7.2.686 [id number] [facility] 2021-07-25 00:00:00 2021-07-25 00:00:00 Patient Secure Msg Doctor Unassigned, Rhodhiss [facility] 1.2.840.114 350.1.13.10 4.2.7.2.686 [id number] [facility] 2021-04-19 13:15:00 2021-04-19 13:15:00 Outpatient R HUY MENDOZA [facility] [id number] [facility] 2021-02-06 00:00:00 2021-02-06 00:00:00 Case Management Jennifer Belcher 1.2.840.114 350.1.13.10 4.2.7.2.686 [id number] [facility] 2021-02-06 00:00:00 2021-02-06 00:00:00 Case Management Jennifer Belcher 1.2.840.114 350.1.13.10 4.2.7.2.686 [id number] 2020-12-12 00:00:00 2020-12-12 00:00:00 Patient Outreach Broderick Melton [facility] 1.2.840.114 350.1.13.10 4.2.7.2.686 [id number] 2020-12-12 00:00:00 2020-12-12 00:00:00 Patient Outreach Broderick Melton [facility] 1.2.840.114 350.1.13.10 4.2.7.2.686 [id number] [facility] 2020-02-28 15:00:00 2020-02-28 15:00:00 Outpatient R JOSY CHAUDHARY [facility] [id number] [facility] 2019-12-18 17:30:00 2019-12-18 17:30:00 Outpatient R KRISSY GREEN [facility] [id number] [facility] 2019-11-18 14:30:00 2019-11-18 14:30:00 [facility] [id number] 2019-05-27 14:41:30 2019-05-27 15:54:53 [facility] 1.2.840.114 350.1.13.10 4.2.7.2.686 [id number] 2019-05-27 14:41:30 2019-05-27 15:54:53 Routine Visit Josy Chaudhary [facility] 1.2.840.114 350.1.13.10 4.2.7.2.686 [id number] [facility] 2019-05-17 17:15:00 2019-05-17 23:59:00 Hospital Encounter [facility] 1.2.840.114 350.1.13.10 4.2.7.2.686 [id number] [facility] 2019-05-17 17:21:30 2019-05-17 17:36:30 Watchmaker Apprentice Visit 1, Adc Lab Kory Cruz [facility] 1.2.840.114 350.1.13.10 4.2.7.2.686 [id number] [facility] 2019-05-17 15:55:01 2019-05-17 16:56:25 [facility] 1.2.840.114 350.1.13.10 4.2.7.2.686 [id number] 2019-05-17 15:55:01 2019-05-17 16:56:25 Office Visit Josy Chaudhary [facility] 1.2.840.114 350.1.13.10 4.2.7.2.686 [id number] [facility] 2019-05-17 00:00:00 2019-05-17 00:00:00 Orders Only Doctor Unassigned, Rhodhiss [facility] 1.2.840.114 350.1.13.10 4.2.7.2.686 [id number] [facility] 2019-05-05 00:00:00 2019-05-05 00:00:00 Telephone Josy Chaudhary [facility] 1.2.840.114 350.1.13.10 4.2.7.2.686 [id number] [facility] 2019-05-04 15:07:01 2019-05-04 15:22:01 Watchmaker Apprentice Visit 1, Adc Lab Kory Cruz [facility] 1.2.840.114 350.1.13.10 4.2.7.2.686 [id number] [facility] 2019-05-04 12:48:00 2019-05-04 14:57:00 Hospital Encounter Kory Cruz [facility] 1.2.840.114 350.1.13.10 4.2.7.2.686 [id number] [facility] 2019-05-04 00:00:00 2019-05-04 00:00:00 Telephone Josy Chaudhary [facility] 1.2.840.114 350.1.13.10 4.2.7.2.686 [id number] [facility] 2019-05-04 00:00:00 2019-05-04 00:00:00 Orders Only Doctor Unassigned, Rhodhiss [facility] 1.2.840.114 350.1.13.10 4.2.7.2.686 [id number] [facility] 2019-04-30 00:00:00 2019-04-30 00:00:00 Case Management Josy Chaudhary [facility] 1.2.840.114 350.1.13.10 4.2.7.2.686 [id number] [facility] 2019-04-29 15:40:17 2019-04-29 16:18:51 Routine Visit Kory Cruz [facility] 1.2.840.114 350.1.13.10 4.2.7.2.686 [id number] [facility] Results Test Description Test Time Test Comments Results Result Co mments Source [facility] IMMUNE [id number] 16:36:33* Test Item Value Reference Range Interpretation Comme nts RHIG CANDIDATE? (test code = 5188) No- see comment Patient is not a candidate for RhIg- Patient is Rh Positive.Performed at [facility] Laboratory Services - [facility] Blood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 fluttering in her chest- TTE previously ordered outpatient not completed- denies CP, SOB, or palpitations- EKG NSR- TTE (08/21): normal, EF 65-70%- TSH (08/21): 0.51 (WNL)PVT of Dr. Cruz, please see OB Summary for more detailsVien Pedro Cruz MD 09/25/2023 1:46 AM 73544-4Zkvndsb and physical ckdaEC6696-14-58P62:54:15History and physical noteTXT1.2.840.390832.1.13.104.2.7.2.38901 9|[id number] for patient qgwo00858-0Edegujy and physical noteLNNARRATIVEFormatted C-CDA narrative text[address] JmwbMkqwfuykcMkagvvxwhBVGV8658291519QBJGMZ HSQIGPKUZUKROGHR7159-53-10I29:54:151.2.840 .980631.1.72.3.15|1.2.840.291429.1.13.104. 2.7.2.727879_[id number] [facility] 2023-09-16 03:28:41 GLYR8nEwzt/QAk9TGlcn 52VVlSG5oEuilwueE9vqyj jge+WA5JOXrErVk3wBNtI/7520-76-20U41:28:41F ormatting of this note is different from the original.ANTEPARTUM HISTORY & PHYSICALIDENTIFYING DATASirehaylee Valdes is 22 year old, /White, 37w4d, female with STEVE 10/03/2023, by Last Menstrual Period.: 2000MRN: [id number] Care Physician: Krystal Cruzospital Day: 1CHIEF COMPLAINTcontractionsHISTORY OF PRESENT UDMQMHL44 year old @37w4d presents via EMS for [...] 05/27/18 9w2d2 SAB 01/10/18 7w4d1 SAB 04/24/17 3m4rEPTF MEDICAL HISTORYProblem list:Patient Active Problem ListDiagnosis Date [...] (TYLENOL) tablet 650 mg 650 mg Oral R9GCBIyrroskam ringers IV infusion 1,000 mL 1,000 mL [...] Vomiting (N/V). 30 tablet 0 Takingprenatal vit 11-cduy-qpllo-dha (SELECT-OB + DHA) 29 mg iron-1 mg [...] in the current .Negative screening.DELIVERY PLANvaginalFETAL HEART YEFB629 at first moderate variability now with minimal variabilityToco: 2-3/10 minASSESSMENT AND PLAN22 year old @18z7yYvqr acute drup use and now non reactive NST--labs + IVF ordered--Internal medicine consultMarisol MD Jaja 38350-1Epfiajh and physical clmpHZ5146-93-45P38:36:45History and physical noteTXT1.2.840.438769.1.13.104.2.7.2.43690 9|[id number] for patient lwjo98073-8Hevuccn and physical noteLNNARRATIVEFormatted C-CDA narrative textUT[address] VvrxJmmpijxjyHbzhcmyqkFUYJ6594014150RYOEUV LQJERWUBECPOUZOE3704-56-68K91:36:451.2.840 .549835.1.72.3.15|1.2.840.337630.1.13.104. 2.7.2.727879_[id number] [facility] Procedure Notes Date/Time Note Provider Source 2023-09-25 03:40:49 5pJXEUe89mxWDspr7vurkTodoJGiL35RtDZ vHOuACdIL2NNsU4jnv+V3jqbmmKaA5576-9 09-25T03:40:49Associated Order(s): Central Neuraxial Block Central Neuraxial BlockDate/Time: 09/25/2023 3:00 AMPerformed by: Xenia Angel MDAuthorized by: Xenia Angel MDPatient Location: OBEnd Time: 09/25/2023 3:40 AMReason for Block: OB request, Patient request and Labor analgesiaStaff:Anesthesiologist: Xenia Angel MDPerformed by: anesthesiologistPreanesthetic Checklist: patient identified, IV [...] rate / toco and NIBPLocation: lumbar (1-5)Lumbar: L2-K4Vgxkgybu: midlineTechnique: SUJEY air and catheterGuidance with: landmark technique}Epidural/Spinal Dexter and/or Catheter:Epidural/Spinal Kit: BBraunNeedle Type: TuohyNeedle Gauge: 17 GNeedle Length: 3.5 in (8.89 cm)Needle Insertion Depth: 7Catheter Type: multiportCatheter Size: 19 GCatheter at Skin Depth: 12Number of Attempts: 2Test Dose: lidocaine 1.5% with epinephrine 1-to-200,000 and negativeDose: 3 ccCatheter Securement Method: Tegaderm, surgical tape and clear occlusive dressingAssessment:Sensory Level: above B00Boufs Outcome: successful block, no apparent complications, pain [...] then tegaderm and tape. No apparent complications. 07747-9Mtbhfrfalvkjwd procedure eaxgJV8857-33-69J36:43:36Anesthesio logy procedure noteTXT1.2.840.627928.1.13.104.2.7. 2.760071|[id number] for patient vhoq60077-0Mdacrxff operation noteLNNARRATIVEFormatted C-CDA narrative textAN-ANESTHESIOLOGY ANESTHESIOLOGISTAN-ANESTHESIOLOGY ANESTHESIOLOGIST[address] OflwVm[id number] 1ENTHSISQIRWCHLLNXDICGR6539-77-74S6 3:43:361.2.840.682278.1.72.3.15|1.2 .840.243050.1.13.104.2.7.2.727879_1 [id number] AN-ANESTHESIOLOGY ANESTHESIOLOGIST [facility] Notes Date/Time Note Provider Source 2023-12-18 13:26:12 Dz9ruROFBG7HMRcc5fe79XD01EPD6OUxnKX8 qR+ErSa3TrIHkQuU7+0ONLRbczEr8650-94- 28T13:26:12 Name and verified. Pt stated that she was not able to go see psych as she resendiz snot have insurance. Wanted to see if he still has medicaid- sent her to [facility].COLETTE ABBOTT RN 12/18/2023 1:26 PM 34774-7Tnvohgfwm encounter MsltDY9691-21-89J10:26:53Telephone encounter NoteTXT1.2.840.479957.1.13.104.2.7.2 .921180|6060630012RYBeodqnqum for patient axos89253-4ZwyhMNBZAYDGVXZHpgflpoys C-CDA narrative jxkk667628089Xeiqmhgzo G Cervantes [id number] WDOOSSEVOQQYQTJDVVCYHU0528-91-83A08: 26:531.2.840.165871.1.72.3.15|1.2.84 0.180670.1.13.104.2.7.2.727879_20603 74025 Colette Abbott [facility] 2023-11-28 08:59:02 76CpNdO5DH/I3e1syRB3ccztG2QEUrfIxrQm IJPfsnSnfQtMWZFJ9nT3lPNWQ5Mh9365-89- 08T08:59:02 ATC pt. Straight to . LM on for pt to return call. Mychart message sent.COLETTE ABBOTT RN 11/28/2023 8:59 AM 67245-7Ftkapsruk encounter PspuKY4079-45-76F25:59:45Telephone encounter NoteTXT1.2.840.927131.1.13.104.2.7.2 .188706|2851214101IXEezyszuip for patient pogd33408-6TzcuTMOQGSIJZJVCeeuqshts C-CDA narrative uqrj949681666Ybfisgjje G Cervantes [id number] BNRXHCLGSDOGYIMSQFVTWK7915-47-14Y65: 59:451.2.840.668995.1.72.3.15|1.2.84 0.484117.1.13.104.2.7.2.727879_20443 97541 Colette Abbott RN [facility] 2023-11-21 14:27:31 cLioIjq1cpqcxfIeNNQp4s7PLacg6SLhtLTS nItquP6ceFpf71uJhuNmHMhEMba09685-19- 01T14:27:31 Name and verified. Had to reschedule it for Friday. Woke up sick. Picked up medication from pharmacy and started taking both The Zoloft and Buspirone. She has not felt a change at this time. Advised pt that I will call her on Friday. Verbalized understanding.COLETTE ABBOTT RN 11/21/2023 2:30 PM 07743-0Pxqytoauc encounter QujiNQ7569-95-15R11:30:20Telephone encounter NoteTXT1.2.840.738503.1.13.104.2.7.2 .848586|2161837902UPNbvhxghty for patient dake16299-1SnzzRRJTIDIOZQJOlxoykwcz C-CDA narrative hdnj088794197ZqbvpznfqColette Abbott RN[address]Gzn[id number] JLVYPTDPBUKIIXOHGTWZEJ2213-48-65V80: 30:201.2.840.524997.1.72.3.15|1.2.84 0.581796.1.13.104.2.7.2.727879_20387 16695 Colette Abbott RN [facility] 2023-11-18 09:35:26 ngDMqA4zLDwqpai2jcEq2cBl+PXb8rCvknel Chayo+vgng5nKzgmI0RqzXzNEi5bRw8255-92- 27T09:35:26 Name and verified. Pt stated that she was incarcerated and was released on 10/30 and had 24 pills left which lasted her 12 days. I advised her that I will call pharmacy and will call her back. Verbalized understanding.Spoke to [facility]- the last fill of the Buspirone [...] take afterwards. Pt stated that she will warehouse order picker both medications as pharmacy.Pt stated that her psychiatry appt is this . I advised her that I will call her on Friday to see how appt went and to see if the provider changed anything. Verbalized understanding.COLETTE ABBOTT RN 11/18/2023 9:39 AM 79937-5Jwbanuory encounter HkumMF7019-54-33F75:41:08Telephone encounter NoteTXT1.2.840.262524.1.13.104.2.7.2 .436749|3714026120AGDyoekubqe for patient rqdm22519-1CmhkBUXBAYVVWTKUdawwtqsb C-CDA narrative fyee143986705KxyhmjzbdColette Abbott RN[address] Vz[id number] MMMSWBRQPLWKNWETLKAFHV1364-31-39Z66: 41:081.2.840.625449.1.72.3.15|1.2.84 0.462893.1.13.104.2.7.2.727879_20349 77988 Colette Abbott RN [facility] 2023-11-17 14:36:08 xQCCEKhu/YC4n2H+wwb9IBZ10HLBtB4ob7S4 /rRlMMsVX6xVmmcp+6s5WE8m8gBw5681-04- 26T14:36:08 ATC pt. LM on for pt to return call.Akuminat message sent.COLETTE ABBOTT RN 11/17/2023 2:37 PM 98356-9Ymwezeorj encounter PblyOD3986-60-71X58:44:28Telephone encounter NoteTXT1.2.840.160500.1.13.104.2.7.2 .395312|5357361726IUHtpilhcup for patient uurs31710-3XgljVBTGFOFOYHCUkskxqqvr C-CDA narrative text[address] StreetXon[id number] YNLNOQCXXAQWYKNEYGMNBU7166-10-18F93: 44:281.2.840.821319.1.72.3.15|1.2.84 0.699505.1.13.104.2.7.2.727879_20342 27875 [facility] 2023-11-17 10:27:16 PVye6U+z34lSsmepn/EjCwYlSKykFsY36i25 XJo9Mqte4XjT986bAKXwcPmk1m634380-87- 26T10:27:16 Name and verified. Pt stated now [...] doing and if they changed any medication.ATC. DANNY on for pt to return call.COLETTE ABBOTT RN 11/17/2023 10:39 AM 84876-0Eskctedcg encounter GibnYW6109-32-08Z06:40:08Telephone encounter NoteTXT1.2.840.410504.1.13.104.2.7.2 .532795|[id number] for patient sreu27581-7TgvjFHYHAAHGYIGBvxdbyojl C-CDA narrative text[id number] EFQKBZJBTIVZHLXHEVGLJZ1435-05-14C91: 40:081.2.840.136697.1.72.3.15|1.2.84 0.099402.1.13.104.2.7.2.727879_20339 [id number] [facility] 2023-11-17 08:59:21 sCXbGPZvuJazOxQzK2ovOJgGTJbb5HyvP/sL g+coQ8/Qmd10wOgnvPt8GnbLhXc63820-94- 26T08:59:21 ATC. Danny on for pt to return call.COLETTE ABBOTT RN 11/17/2023 8:59 AM 77124-2Bbafylzwz encounter EudkXB9692-27-96Z79:59:43Telephone encounter NoteTXT1.2.840.306840.1.13.104.2.7.2 .549792|[id number] for patient immn27709-1LsuvMMWTDJTSGKEDbnhfkxls C-CDA narrative text[id number] RBVTVTDOYPQGIKYSJPUHEO5380-36-68V31: 59:431.2.840.957705.1.72.3.15|1.2.84 0.902386.1.13.104.2.7.2.727879_20337 [id number] [facility] 2023-11-15 12:16:29 f6yUaY8M126jbnXyUco/EA9ft8hieMEdHf7D 77dF894KAuw9A3N8sZ+ZJINsGA1I4115-02- 24T12:16:29 Arina Valdes is a 23 year old femalePt is requesting refill for Buspirone but would like to discuss a higher dosage. Pt asking if appt is needed can it be telehealth because she can not get transportation to [place] at this time.Please call pt back at [phone]. 13613-4Dosxymulm encounter OfbsKJ2239-77-62F04:21:25Telephone encounter NoteTXT1.2.840.063155.1.13.104.2.7.2 .808873|[id number] for patient loiz89848-4PbkuYEVMKFEMFYDIagfyhlay C-CDA narrative [id number] M [address] Hx[id number] FPXLMXFYRBYBAHLGLTQEQE3203-03-58H26: 21:251.2.840.800486.1.72.3.15|1.2.84 0.141332.1.13.104.2.7.2.727879_20333 [id number] Lori Segura [facility] 2023-10-09 15:59:41 9VS6M0CMMj8jyV2fW5MlLcJI6p2st1GlS1d1 4e2OUTcPrQ/Y+sPJwQMfje3hckwV5773-38- 18T15:59:41 Name and verified. Pt stated that she listened to VM. Again emphasized that if there is someone to care for baby toniliana- to Take benadryl 50mg x1 only and go to sleep. Do this around 8-9pm. If worsen, thoughts of self harm or to others or feeling of hopelessness- need to go to ER. Make sure she goes to appt tomorrow. If need to be earlier- she may do so. Verbalized understanding.COLETTE ABBOTT RN 10/09/2023 4:01 PM 08925-2Ogyhsndae encounter LqwkEQ9371-07-66I89:02:01Telephone encounter NoteTXT1.2.840.715246.1.13.104.2.7.2 .858552|[id number] for patient uhrf79555-7RpafSUBDOSQUJPYKaxfheweh C-CDA narrative nhdm454580887QdpxxpzrmColette Abbott RN[address] StreetQxs[id number] GYVICTRFHRGWFCLTIGIAVG0104-04-36F43: 02:011.2.840.521792.1.72.3.15|1.2.84 0.112454.1.13.104.2.7.2.727879_20014 98951 Colette Abbott RN [facility] 2023-10-09 14:49:39 xTqzL+lmG2rr+ZHsHvnQ804DZr5ORqfMd5wI 5l6izdRfdu87y2hD0CwgePuZIiw81506-85- 18T14:49:39 Per Pt- hx of anxiety and [...] try again.COLETTE ABBOTT RN 10/09/2023 2:53 PM 14678-3Tlukwcwmh encounter BsfuPJ4774-16-44K73:54:19Telephone encounter NoteTXT1.2.840.596001.1.13.104.2.7.2 .278283|[id number] for patient xhvr40663-7HsngFHZOZBQZBOAQauxvyrgd C-CDA narrative text[address]Ol[id number] NMUDQIQQWCWPFPLPWNOVWW8890-29-93N13: 54:191.2.840.413829.1.72.3.15|1.2.84 0.027988.1.13.104.2.7.2.727879_20023 87482 [facility] 2023-10-09 14:31:55 rnBZ20gXkxsEo7knGLZXNYLBUTSM7suiMNvB 3Y9ZEq+qtvnR6Efbvnbqz0fXjitv7747-22- 18T14:31:55 Patient states she is having signs of pp depression. She states Dr. Cruz told her to call and she would send in a prescription for her. She is not having a good day today, no thoughts of hurting herself or the baby but feels like nothing is going right today.[id number] - [place] [address] [facility]AD[facility] [address]IVEPhone: Lohxrwjjbprafj signed by Reyna Avalos at 10/09/2023 2:34 PM EEX99351-2Stvfodkwx encounter EuhwBV2424-58-21G16:34:17Telephone encounter NoteTXT1.2.840.418162.1.13.104.2.7.2 .136185|[id number] for patient tnag78866-4BfypZRMFPQKOILYNfygbihyr C-CDA narrative [id number] S Her[address] [id number] QHRIUZFRRINCUNTEHYMFYH8535-08-73E28: 34:171.2.840.892528.1.72.3.15|1.2.84 0.424378.1.13.104.2.7.2.727879_20023 02820 Reyna Avalos [facility] 2023-09-26 23:31:11 3kpG/Dod9PacI22UBTKxhjM17zThrlFHwcWZ MfVuglg5u8hbsLPy+653JIZVSWyy8501-83- 05T23:31:11 Problem: PainGoal: Control of pain at or below patient's documented comfort goalOutcome: Progressing as expectedGoal: Reduction in pain sensationOutcome: Progressing as expectedProblem: Bleeding, Risk ofGoal: Absence of impaired coagulation signs and symptomsOutcome: Progressing as expectedGoal: Absence of active bleedingOutcome: Progressing as expectedProblem: Discharge Planning - PostpartumGoal: Adequate for dischargeOutcome: Progressing as expectedGoal: Mood stableOutcome: Progressing as expected 10244-9Vblc of care suxhSC8247-44-10A33:31:16Plan of care noteTXT1.2.840.549591.1.13.104.2.7.2 .462158|1588347073UQYzcdsmycb for patient isjz21702-6EhocGFBCHWHVKFUJjispchze C-CDA narrative [id number] Vela [id number] RYDMBRCSGFHKEOKXDSWJTY7027-95-81O73: 31:161.2.840.888611.1.72.3.15|1.2.84 0.426593.1.13.104.2.7.2.727879_ 72800 Flaquita Branch RN [facility] 2023-09-26 08:06:29 aFj/DGz1tZFoBVSKn88zKlus8tP5LT+0JIZS r+Aj7TdhtJvbehO15NWcD77GfKrI3009-33- 05T08:06:29 Problem: PainGoal: Control of pain at or below patient's documented comfort goalOutcome: Progressing as expectedGoal: Reduction in pain sensationOutcome: Progressing as expectedProblem: Bleeding, Risk ofGoal: Absence of impaired coagulation signs and symptomsOutcome: Progressing as expectedGoal: Absence of active bleedingOutcome: Progressing as expectedProblem: Discharge Planning - PostpartumGoal: Adequate for dischargeOutcome: Progressing as expectedGoal: Mood stableOutcome: Progressing as expected 14896-2Isbx of care yfvbIH5044-00-86X35:06:48Plan of care noteTXT1.2.840.328253.1.13.104.2.7.2 .510405|[id number] for patient cfdr81338-6YbraXWJSTTUINJJNssjtcpzg C-CDA narrative [id number] E Duarte RN[address] Hyhp[id number] MBSMEVFVNWMVXYCSTXCSTR6943-23-22A98: 06:481.2.840.023721.1.72.3.15|1.2.84 0.791489.1.13.104.2.7.2.727879_19914 56984 Nesha Matta RN [facility] 2023-09-25 19:06:08 kHgCuHehBfAof88RxKrqGw35j07x2bJEWoqB 5zEFaBxiShCuUESuJ8RoR91jxLjL5095-31- 04T19:06:08 Problem: PainGoal: Control of pain at or below patient's documented comfort goalOutcome: Progressing as expectedGoal: Reduction in pain sensationOutcome: Progressing as expectedProblem: Bleeding, Risk ofGoal: Absence of impaired coagulation signs and symptomsOutcome: Progressing as expectedGoal: Absence of active bleedingOutcome: Progressing as expectedProblem: Discharge Planning - PostpartumGoal: Adequate for dischargeOutcome: Progressing as expectedGoal: Mood stableOutcome: Progressing as expected 39764-2Fanm of care qxjyYD9722-33-82Z06:06:14Plan of care noteTXT1.2.840.228037.1.13.104.2.7.2 .743148|9102150466FRUlhwezmfs for patient ldkn30462-7CnqdKXWUVEWCTGCEqsnbcejk C-CDA narrative [id number] M Martinez RN[id number] XMIUUPVQKIPFCYISPWRNMA9453-84-16B95: 06:141.2.840.421365.1.72.3.15|1.2.84 0.828687.1.13.104.2.7.2.727879_19921 12060 Heidi Plata RN [facility] 2023-09-25 08:54:21 iEdSz8f3tBQPYqMEaZ/uRHkIFjBEfxGhXelB AjyHMnJx9fpXin4V6eZUaO/8eCGZ1008-64- 04T08:54:21 Patient: Arina Velasquez RamosProcedure SummaryDate: 09/25/23 Room / Location:Anesthesia Start: 0300 Anesthesia Stop: 851Procedure: CENTRAL NEURAXIAL BLOCK Diagnosis:Scheduled Providers: Responsible Provider: Xenia Angel MDAnesthesia Type: Not recorded ASA Status: 2Anesthesia Type: No value filed.Last pdldrjZIJxfpSdyspUxrfOpN7Flfgq were no known notable events for this encounter.Anesthesia Post EvaluationComments:Anesthesia KANDY Post Operative Faculty NoteDate of service: 09/25/2023atient is s/p labor epidural placement and removal. [...] No apparent complicationsEaston Piedra MD 09/25/2023 08:54 84772-9Ziqesogytqejoy Postoperative evaluation and management qnpvUM9637-42-37T54:54:34Anesthesiol ogy Postoperative evaluation and management noteTXT1.2.840.564815.1.13.104.2.7.2 .128672|[id number] for patient mzff27617-4Dxqcoucw operation noteLNNARRATIVEFormatted C-CDA narrative textAN-ANESTHESIOLOGY ANESTHESIOLOGISTAN-ANESTHESIOLOGY ANESTHESIOLOGIST[address] Rm[id number] FPUJLPDSSEBDEAXBICEEFX7383-62-96W64: 54:341.2.840.744977.1.72.3.15|1.2.84 0.032185.1.13.104.2.7.2.727879_19915 57204 AN-ANESTHESIOLOGY ANESTHESIOLOGIST [facility] 2023-09-25 06:42:27 D8Sotlh9ldwp/45JINVBEElPAM6SuU3Gd1xg t1RYlq/f0e9B9y6aewxxbBuBBqhX6318-27- 04T06:42:27 Problem: PainGoal: Control of pain at or below patient's documented comfort goalOutcome: Progressing as expectedGoal: Reduction in pain sensationOutcome: Progressing as expectedProblem: Bleeding, Risk ofGoal: Absence of impaired coagulation signs and symptomsOutcome: Progressing as expectedGoal: Absence of active bleedingOutcome: Progressing as expected 44705-1Mimj of care ypwtIB3072-49-08Z85:42:28Plan of care noteTXT1.2.840.003335.1.13.104.2.7.2 .377385|[id number] for patient frvm06553-3DspzAGFJLYAMXYWEjdxeinnp C-CDA narrative [id number] Velazquez RN[address] Grra[id number] PGQDASHAQUQFEKXNWWOJXO1725-74-18G14: 42:281.2.840.465827.1.72.3.15|1.2.84 0.374446.1.13.104.2.7.2.727879_19913 36776 Nikki Velazquez RN [facility] 2023-09-25 06:41:38 zk3p51fucKbymQwXrppD/gzvv5iY28LhZbMb LeG0ZSTF6KsqvyQf91Sprnel3j0J0577-21- 04T06:41:38 Problem: PainGoal: Control of pain at or below patient's documented comfort goalOutcome: Progressing as expectedGoal: Reduction in pain sensationOutcome: Progressing as expectedProblem: Bleeding, Risk ofGoal: Absence of impaired coagulation signs and symptomsOutcome: Progressing as expectedGoal: Absence of active bleedingOutcome: Progressing as expectedProblem: Intrapartum process (including labor pain)Goal: Absence of or reduction of complications of labor09/25/2023 0641 by Nikki Velazquez RNOutcome: Resolved09/25/20238 by Nikki Velazquez RNOutcome: Progressing as expectedGoal: Able to cope with pain09/25/2023 0641 by Nikki Velazquez RNOutcome: Resolved09/25/2023417 by Nikki Velazquez RNOutcome: Progressing as expectedGoal: Adequate to move to next level of care09/25/2023 06 by Nikki Velazquez RNOutcome: Resolved09/25/2023417 by Nikki Velazquez RNOutcome: Progressing as expectedGoal: Reduction in pain sensation09/25/2023 06 by Nikki Velazquez RNOutcome: Resolved09/25/2023417 by Nikki Velazquez RNOutcome: Progressing as expected 91560-8Dcyq of care mvhpWP6528-54-32A63:41:44Plan of care noteTXT1.2.840.471256.1.13.104.2.7.2 .805994|[id number] for patient wrcs10803-5NuegZTGKCVZHEKJZuridknta C-CDA narrative textUT57 [address] StreetCyamF[id number] SDKTDHBULWOGFBNWHDMFGO7256-24-75G74: 41:441.2.840.591729.1.72.3.15|1.2.84 0.468254.1.13.104.2.7.2.727879_19913 13786 [facility] 2023-09-25 06:08:58 VayIglmWUYq8nBF3N2uOOFQec3S+qRquzrUZ sLXkeZY/N0OXbzauCuhX+8tTe21N6860-33- 04T06:08:58 DELIVERY BY SPONTANEOUS VAGINAL DELIVERYDelivery Date: [...] was [facility] nursePlacentaPlacenta was delivered spontaneously while the abdominal [...] 9Vien Pedro Cruz MD 09/25/2023 6:10 AM 30313-5Pyuxe and delivery summary iettAA9767-21-00V30:29:51Labor and delivery summary noteTXT1.2.840.995562.1.13.104.2.7.2 .290600|[id number] for patient jbnq11765-1OsvhMXXSWYLLXJDUvvuekeao C-CDA narrative text[id number] BSEPERQYMZLWRTOVBWQWDI6481-78-39G38: 29:511.2.840.850775.1.72.3.15|1.2.84 0.146826.1.13.104.2.7.2.727879_19913 47976 [facility] 2023-09-25 04:18:18 k4YdW+BJOW7E3FYjYCi9rJ4pWh/8gIlDQbNy ilJO7PQU4xT9oVZCWi0kWXifRHzz0378-27- 04T04:18:18 Problem: Intrapartum process (including labor pain)Goal: [...] Absence of active bleedingOutcome: Progressing as expected 16224-1Kklk of care ipomXQ6941-72-28Q12:18:21Plan of care noteTXT1.2.840.777762.1.13.104.2.7.2 .873837|0233663114ZBYuzwdymzr for patient uzvy41839-8FbdvJHWMTNSMKEVYhegtsjof C-CDA narrative textUT[address] TacjV[id number] FHJGOJSYVTKQSFXTGKRUIY2624-50-95X84: 18:211.2.840.415182.1.72.3.15|1.2.84 0.807243.1.13.104.2.7.2.727879_19913 87635 [facility] 2023-09-25 03:37:05 GVE4on0uB4q9vC93xOVT0DwQoWRF92xm2jiM cbhhehX1WXg2UimBFYUqBPlkore63758-35- 04T03:37:05 Name/ MRN / Age / Gender:Arina Valdes, 748085O68 year old femaleBMI:Estimated body mass index is [...] not found *Procedure: CENTRAL NEURAXIAL BLOCKOR Location: [place] [facility] OUT [facility] OR - OR LOCATIONAnesthesia Preop Eval (physical exam)Anesthesia Preop: Zgps-oj-PoltWCSR Risk Factors: femaleAnesthesia HistoryAnesthesia History Negative(-) Hx [...] prior to surgery. Hold on DOS.Phentermine: Alert [facility] anesthesiologistSGLT2 Inhibitors: "gliflozins" to be held for [...] LDRAdditional comments: Date Anesthesia Start: 09/25/2023Labor Room: 2309/2309-[facility] Ron Valdes is a 22 year old [...] and desires to proceed with the epidural. 07974-1Puhzddnchtrtfk Preoperative evaluation and management nppaUY4456-23-43I09:38:52Anesthesiol ogy Preoperative evaluation and management noteTXT1.2.840.677607.1.13.104.2.7.2 .822354|1436761380BNVcfqlarrt for patient adoz89426-1Ukpkwacq operation noteLNNARRATIVEFormatted C-CDA narrative text[address]Ua[id number] QGUJMTTAWNNMSSBLGBDVXP0665-62-20L93: 38:521.2.840.519265.1.72.3.15|1.2.84 0.508813.1.13.104.2.7.2.727879_19911 32908 [facility] 2023-09-25 01:15:02 cMfweLGBkgSTgtUa8UZIG8mYnSS7hhMhoeqc sgwZPsIa0NJ0lFp7sCzo9RsaxX7w4934-75- 04T01:15:02 Pt arriving with complaints of contractions. Pt is 39 weeks , . No rupture of membranes.Report to Radames Ojeda [place] [address]-8Ognprxdmu department DuecZY0588-09-86G50:15:16Emergency department NoteTXT1.2.840.970865.1.13.104.2.7.2 .664511|3111061700XPVpjmimifh for patient mirr44191-1FrqzADZMWXAAANBVhyctrwtd C-CDA narrative zddo851076803Mxlixq D Roman RN[id number] EZTLLTEFNYSTDYTXMAIBIH3097-50-19W06: 15:161.2.840.965176.1.72.3.15|1.2.84 0.102289.1.13.104.2.7.2.727879_19911 35064 Windy Deleon RN [facility] 2023-09-24 07:51:06 RGW+AV/1xLxfNGUjsT0SeOnro4jV7VFHIo+R mm9YwOof7nVMPQ0qq0E8+t8t1YqH6198-16- 03T07:51:06 Triage call transferred to ar. Patient identification verified by name and . [...] Cruz notified.Pedro Gomez RN 09/24/2023 7:57 AM 02160-3Koxwnsecz encounter JcgeLT2665-56-20J94:57:46Telephone encounter NoteTXT1.2.840.591537.1.13.104.2.7.2 .348848|7502517097PEEivwgyyoq for patient grot30584-4RcddNOMZNDBTUMCBgtugwcqx C-CDA narrative [id number] Collins RNUT[address] [id number] JPUAYNUDXWQWLZVLBCUTRH5148-66-33Q86: 57:461.2.840.721570.1.72.3.15|1.2.84 0.706803.1.13.104.2.7.2.727879_ 82264 Pedro Gomez CARLOS [facility] 2023-09-24 07:43:24 PAX7O7d8YxWEN/6DmFN3tlBBsTZwe1OBZ3vd GMSXEdgGlry/hjLc/enDUwHrmOLy2777-52- 03T07:43:24 Pt calling says she having contractions think she may be in labor they are 5 min apart, having some bloody discharge along with backache. Scheduled for delivery tomorrow has appt today in clinic. 88498-4Tuyckrmwr encounter XqriAU5682-89-48R00:44:46Telephone encounter NoteTXT1.2.840.115466.1.13.104.2.7.2 .786574|7368442963BWVoaptkels for patient jkfk74948-1PrerUSDMKZFCZFTEonvcmwqt C-CDA narrative hdad116092633Vdzxn Jimbo[address] Ggpj[id number] DWLBOUIRHIJFSMQCOBHAKC3797-50-81T48: 44:461.2.840.857686.1.72.3.15|1.2.84 0.193742.1.13.104.2.7.2.727879_ 99838 Olamide hCoi [facility] 2023-09-18 15:15:00 QwsScWXng6qOLWwikhkzecc7CEncz2qsoDta OBqxnC+kyA4gV9JswEfI2GDrHoYh1089-80- 28T15:15:00 Age: 22 year oldGA: 54p3jKpdgszn asked if she can be induced now as she is having more pelvic pain and has to have FOB helped her get out of bed. Discussed with patient that currently there is no medical indication for delivery before 39 weeks.contractions-Reports rare contractions, a couple times a day-SVE /thick/highAnxiety/depression-Wade haley on Zoloft 100 mg daily-EPDS 2. Denies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
[2024-01-07] MEDS ORDERED: IBUPROFEN 200 MG TAB PO ONE (00:04)
[2024-01-07] MEDS ORDERED: HYDROCODONE/APAP 5/325 MG TAB ONE (00:06)
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
[2024-01-07 12:08] VITALS: BP 104/58; TEMP 97.4; O2SAT 100
--- NOTE | 2024-01-08 00:16 | RAD REPORT ---
EXAM DESCRIPTION: RAD - Hand Right 3 View - 01/07/2024 12:02 am CLINICAL HISTORY: PAIN COMPARISON: None. TECHNIQUE: XR HAND 3 OR MORE VIEWS RIGHT 01/06/2024 11:20 PM CDT FINDINGS: There is no fracture. Joint spaces are preserved. Soft tissues are unremarkable. IMPRESSION: No acute osseous findings. Electronically signed by: Austin Cervantes MD 01/07/2024 12:25 AM CDT Due to temporary technical issues with the PACS/Fluency reporting system, reports are being signed by the in house radiologists without review as a courtesy to insure prompt reporting. The interpreting radiologist is fully responsible for the content of the report.
== END 2024-01-07 02:28 | disposition home or self-care (01) ==
LOC: ER 23:10
DX: S60.221A Contusion of right hand, initial encounter (principal)

== ENCOUNTER 2024-01-24 18:24 | Emergency (ER) | payer OTHER ==
--- OUTSIDE RECORDS SUMMARY | 2024-01-24 18:38 | XMS REPORT | Continuity of Care Document ---
Author Name Unknown Address [address] [facility] [address] [place] [address] [facility] thconnect Address [address] [facility] [address] [place] [address] Care Team Providers Care Guide [place] Name Role Phone KORY CRUZ Primary Care Physician Unavailab le Doctor Unassigned, [place] Attending Clinician Kiran Cruz MD, Kory Vasquez Attending Clinician [phone] KORY CRUZ Attending Clinician Unavailable Xenia Angel MD Attending Clinician + Agnes Pedraza MD Attending Clinician [phone] ARIELA WILKINSON Attending Clinician ARIELA Dunn Attending Clinician Jose Antonio candelario 2, [facility] Attending Clinician Unavailable MARY AVINA Attending Clinician Unavailable Mary Avina MD Attending Clinician [phone] ELOY CHAVEZ Attending Clinician Unavaila ble Quintero DO, Nacho Attending Clinician [phone] Sheldon KENNEDY, Kristal Phelps Attending Clinician + Scott KENNEDY, Eloy Ramires Attending Clinician + [phone], [facility] Us Room Attending Clinician Unavailcatherine Melton MD, Sunita Segura Attending Clinician [phone] Nurse, [facility] Attending Clinician Amanda rustam RODRIGUEZMKrystal Attending Clinician [phone] Sammy RN, Heidi Stinson Attending Clinician Unavaila kam Mendoza WHJENNIFERPHuy Attending Clinician + HUY MENDOZA Attending Clinician Unavail SHELLEY Mccarthy Attending Clinician Unav costa Ultrasound, [facility] Attending Clinician Unavaila Shelley Ortiz MD Attending Clinician + KRYSTAL LOW Attending Clinician Unavaila YVONNE Montano Attending Clinician Unavailable Yvonne Rodriguez Attending Clinician [phone] Simi [facility] Attending Clinician Unava Broderick Diaz DO Attending Clinician [phone] JOSY CHAUDHARY Attending Clinician Unavailable KRISSY GREEN Attending Clinician Unavailable Josy Chaudhary PA-C Attending Clinician [phone] 1, [facility] Attending Clinician Unavailable ARIELA WILKINSON Admitting Clinician KORY Weller Admitting Clinician Unavailable Anthony KENNEDY, Kory Vasquez Admitting Clinician [phone] MARY AVINA Admitting Clinician Unavailable Fabrice KENNEDY, Mary Masters Admitting Clinician [phone] ELOY CHAVEZ Admitting Clinician UnavailEloy Lewis MD Admitting Clinician + [phone] Payers Payer Name Policy Type Policy Number Effective Date Expirati on Date Source [facility] [id number] 2023 00:00:00 MEDICAID PENDING PENDING 2023 00:00:00 2023 00:00:00 [place] [id number] 2023 00:00:00 2023 00:00:00 [facility] [id number] 2018 00:00:00 Problems Condition Name Condition Details Condition Category Status Onset Date Resolution Date Last Treatment Date Treating Clinician Comments Source Normal labor Normal labor Disease Active 09-25 00:00: 00 [facility] Liveborn infant, of [place] , born in hospital by vaginal delivery Liveborn infant, of [place] , born in hospital by vaginal delivery Disease Active 09-25 00:00: 00 [facility] 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 Disease Active 2022-09 00:00: 00 [facility] 37 weeks gestation of 37 weeks gestation of Disease Active 2022-09 00:00: 00 [facility] Drug use complicati ng in third trimester Drug use complicati ng in third trimester Disease Active 2022-09 00:00: 00 [facility] 38 weeks gestation of 38 weeks gestation of Disease Active 2022-09 00:00: 00 [facility] Fall (on) (from) unspecifie d stairs and steps, sequela Fall (on) (from) unspecifie d stairs and steps, sequela Disease Active 2022-09 00:00: 00 [facility] Injury Injury Disease Active 2022-09 00:00: 00 [facility] Fall Fall Disease Active 2022-09 00:00: 00 [facility] High-risk in third trimester High-risk in third trimester Disease Active 2022-09 00:00: 00 [facility] Limited care in third trimester Limited care in third trimester Disease Active 2022-09 00:00: 00 [facility] Cramping affecting , antepartum Cramping affecting , antepartum Disease Active 2022-09 00:00: 00 [facility] 30 weeks gestation of 30 weeks gestation of Disease Active 2022-09 00:00: 00 [facility] 31 weeks gestation of 31 weeks gestation of Disease Active 2022-09 00:00: 00 [facility] uterine contractio ns, antepartum , third trimester uterine contractio ns, antepartum , third trimester Disease Active 2022-09 00:00: 00 [facility] 33 weeks gestation of 33 weeks gestation of Disease Active 2022-09 00:00: 00 [facility] Trichomona l vaginitis during Trichomona l vaginitis during Disease Active 02-14 00:00: 00 [facility] Maternal varicella, non-immune Maternal varicella, non-immune Disease Active 02-12 00:00: 00 [facility] Obesity affecting Obesity affecting Disease Active 02-11 00:00: 00 [facility] Nausea and vomiting during Nausea and vomiting during Disease Active 02-11 00:00: 00 [facility] History of heart murmur in childhood History of heart murmur in childhood Disease Active 02-11 00:00: 00 Overview: Formattin g of this note might be different from the original. Age 12EKG NSR with sinus arrhythmi a. Normal EKG compared to 7. [facility] Family history of autism Family history of autism Disease Active 02-11 00:00: 00 Overview: Formattin g of this note might be different from the original. Patient sister and daughter [facility] Nexplanon insertion Nexplanon insertion Disease Active 2018-09 00:00: 00 [facility] Nexplanon in place Nexplanon in place Disease Active 2018-09 00:00: 00 [facility] Encounter for female control Encounter for female control Disease Active 2018-09 00:00: 00 [facility] Anemia, antepartum , third trimester Anemia, antepartum , third trimester Disease Active 2018-09 1-12 00:00: 00 [facility] Obesity (BMI 30-39.9) Obesity (BMI 30-39.9) Disease Active 01-04 00:00: 00 [facility] History of depression History of depression Disease Active 01-04 00:00: 00 [facility] History of anxiety and depression History of anxiety and depression Disease Active 01-04 00:00: 00 [facility] Anxiety during Anxiety during Disease Active 01-04 00:00: 00 [facility] Allergies, Adverse Reactions, Alerts Allergy Name Allergy Type Status Severity Reaction(s) Onset Date Inactive Date Treating Clinician Comments Source NO KNOWN ALLERGIE S Drug Class Active [facility] Social History Social Habit Start Date Stop Date Quantity Comments Source ASSERTION 2023-01-10 00:00:00 [facility] History of tobacco use Passive smoker [facility] Gender identity [facility] Sexual orientation [facility] Alcohol intake 2023-10-10 00:00:00 2023-10-10 00:00:00 Current non-drinker of alcohol (finding) [facility] Tobacco Comment 2023-02-11 00:00:00 2023-02-11 00:00:00 fiance smokes outside [facility] Tobacco use and exposure 2023-02-11 00:00:00 2023-02-11 00:00:00 Smokeless tobacco non-user [facility] History of Social function 2023-02-11 00:00:00 2023-02-11 00:00:00 [facility] Exposure to SARS-CoV-2 (event) 2022-01-06 00:00:00 2022-01-16 20:33:00 Unable to assess [facility] Sex Assigned At 2000 00:00:00 2000 00:00:00 [facility] Smoking Status Start Date Stop Date Source Never smoked tobacco [facility] Medications Ordered Medication Name Filled Medication Name Start Date Stop Date Current Medication? Ordering Clinician Indication Dosage Frequency Signature (SIG) Comments Components Source SERTraline (ZOLOFT) 50 mg tablet 10-17 00:00: 00 Yes [id number] 50mg Take 1 tablet by mouth in the morning. [facility] busPIRone 10 mg tablet 10-10 00:00: 00 Yes [id number] 10mg Take 1 tablet by mouth in the morning and 1 tablet in the evening. [facility] SERTraline (ZOLOFT) 25 mg tablet 10-10 00:00: 00 10-18 05:59 :00 No [id number] 25mg Take 1 tablet by mouth in the morning for 7 days. [facility] vitamin w/FA tablet 09-26 00:00: 00 Yes [id number] 1{tbl} Take 1 tablet by mouth in the morning. [facility] docusate 100 mg capsule 09-26 00:00: 00 Yes [id number] 200mg Take 2 capsules by mouth once daily as needed for Constipati on. [facility] ferrous sulfate 325 mg (65 mg iron) tablet 09-26 00:00: 00 Yes [id number] 325mg Take 1 tablet by mouth in the morning and 1 tablet in the evening. [facility] ibuprofen 600 mg tablet 09-26 00:00: 00 Yes [id number] 600mg Take 1 tablet by mouth every 6 (six) hours as needed (Pain). Take with food or milk. [facility] witch Gilbert (TUCKS) 50 % topical pad 09-25 16:22: 14 Yes Topical, Q4HPRN, Starting on Airam 09/25/23 at 1022, Until Discontinu ed, Routine, rectal/hem orrhoidal [facility] rho(D) immune globulin (RHOGAM) syringe 300 mcg 09-25 16:18: 36 Yes 300ug 300 mcg, Intramuscu lar, ONCE, For 1 dose, Conditiona l, Routine [facility] HYDROcodone -acetaminop hen (NORCO 5) 5-325 mg tablet 1 tablet 09-25 16:18: 06 Yes 1{tbl} 1 tablet, Oral, Q6HPRN, Starting on Airam 09/25/23 at 1018, Until Discontinu ed, Routine, Pain (scale 7-10) [facility] ibuprofen (IBU) tablet 600 mg 09-25 16:18: 06 Yes 600mg 600 mg, Oral, Q6HPRN, Starting on Airam 09/25/23 at 1018, Until Discontinu ed, Routine, Pain (scale 4-6) [facility] acetaminoph en (TYLENOL) tablet 650 mg 09-25 16:18: 06 Yes 650mg 650 mg, Oral, Q6HPRN, Starting on Airam 09/25/23 at 1018, Until Discontinu ed, Routine, Pain (scale 1-3) [facility] diphenhydrA MINE (BENADRYL) tablet 25 mg 09-25 16:18: 06 Yes 25mg 25 mg, Oral, Q6HPRN, Starting on Airam 09/25/23 at 1018, Until Discontinu ed, Routine, Sleep, Itching [facility] ondansetron (ZOFRAN (PF)) injection 4 mg 09-25 16:18: 06 Yes 4mg 4 mg, Slow IV Push, Q8HPRN, Starting on Airam 09/25/23 at 1018, Until Discontinu ed, Routine, Nausea and Vomiting (N/V) [facility] simethicone (GAS RELIEF (SIMETHICON E)) chewable tablet 160 mg 09-25 16:18: 06 Yes 160mg 160 mg, Oral, PC+HSPRN, Starting on Airam 09/25/23 at 1018, Until Discontinu ed, Routine, Gas [facility] docusate (COLACE) capsule 200 mg 09-25 16:18: 06 Yes 200mg 200 mg, Oral, QDAILYPRN, Starting on Airam 09/25/23 at 1018, Until Discontinu ed, Routine, Constipati on [facility] magnesium hydroxide (MILK OF MAGNESIA) 400 mg/5 mL suspension 30 mL 09-25 16:18: 06 Yes 30mL 30 mL, Oral, QDAILYPRN, Starting on Airam 09/25/23 at 1018, Until Discontinu ed, Routine, Constipati on [facility] benzocaine- menthol (DERMOPLAST ) 20-0.5 % topical spray 09-25 16:18: 06 Yes Topical, PRN, Starting on Airam 09/25/23 at 1018, Until Discontinu ed, Routine, Perineum discomfort [facility] SERTraline (ZOLOFT) tablet 100 mg 09-25 15:00: 00 Yes 100mg 100 mg, Oral, DAILY, First dose on Airam 09/25/23 at 0900, Until Discontinu ed, Routine [facility] fentaNYL-ro pivacaine 2 mcg/mL-0.1 % (PF) in NS 200 mL epidural infusion RTU 09-25 09:30: 00 09-25 14:54 :08 No Epidural, ONCE INTRA PROCEDURE, Starting on Airam 09/25/23 at 0330, Until Airam 09/25/23 at 0854, Routine, Intra-op [facility] lidocaine-e pinephrine (XYLOCAINE W/EPINEPHRI NE) 1.5 %-1:200,000 injection 09-25 09:30: 00 09-25 14:54 :08 No Intraderma l, ONCE INTRA PROCEDURE, Starting on Airam 09/25/23 at 0330, Until Airam 09/25/23 at 0854, Routine, Intra-op [facility] FENTanyl PF (SUBLIMAZE (PF)) injection 100 mcg 09-25 07:40: 08 09-25 16:22 :14 No 100ug 100 mcg, Slow IV Push, Q1HPRN, Starting on Airam 09/25/23 at 0140, Until Airam 09/25/23 at 1022, Routine, contractio n pain without an epidural and SVE < 8 cm and Cat I strip [facility] ondansetron (ZOFRAN (PF)) injection 4 mg 09-25 07:40: 00 09-25 16:22 :14 No 4mg 4 mg, Slow IV Push, Q8HPRN, Nausea and Vomiting (N/V), Starting on Airam 24 at 0140
Do ses of ondansetro n 16 mg and above need to be administer ed via IV piggyback. For Dose >=24mg ECG monitoring is advisable.
[facility] oxytocin (PITOCIN) 30 units in NS 500 mL IV infusion 09-25 07:38: 50 09-25 16:21 :41 No 2mU/min at 2-40 mL/hr, IV Infusion, TITRATE, Starting on Airma 09/25/23 at 0138, Until Airam 24 at 1021, ABHAY [facility] oxytocin (PITOCIN) 30 units in NS 500 mL IV infusion 09-25 07:36: 45 09-25 13:45 :00 No 600mL/h 600 mL/hr, IV Infusion, PRN, PPH, Starting on Airam 09/25/23 at 0136, For 1 dose
As instructed by physician at bedside.<b r> [facility] lactated ringers IV infusion 500 mL 09-25 07:36: 45 09-25 16:21 :41 No 500mL at 999 mL/hr, 500 mL, IV Infusion, PRN - SEE INSTRUCTIO NS, Starting on Airam 09/25/23 at 0136, Until Airam 24 at 1021, Routine [facility] D5W-LR IV infusion 1,000 mL 09-25 07:36: 45 09-25 16:21 :40 No 1000mL at 1-125 mL/hr, IV Infusion, TITRATE, Starting on Airam 09/25/23 at 0136, Until Airam 24 at 1021, Routine [facility] famotidine 20 mg tablet 2022-09 00:00: 00 09-26 00:00 :00 No [id number] 20mg Take 1 tablet by mouth in the morning and 1 tablet in the evening. [facility] lactated ringers IV infusion 1,000 mL 2022-09 09:30: 00 Yes 1000mL at 125 mL/hr, 1,000 mL, IV Infusion, CONTINUOUS , Starting on Fri09/16/23 at 0330, Until Discontinu ed, Routine [facility] acetaminoph en (TYLENOL) tablet 650 mg 2022-09 09:17: 17 Yes 650mg 650 mg, Oral, Q6HPRN, Starting on Fri09/16/23 at 0317, Until Discontinu ed, Routine, Pain (scale 1-3) [facility] SERTraline 100 mg tablet 2022-09 00:00: 00 09-26 00:00 :00 No [id number] 100mg Take 1 tablet by mouth in the morning. [facility] proMETHazin e (PHENERGAN) tablet 25 mg 2022-09 14:29: 24 Yes 25mg 25 mg, Oral, Q6HPRN, Starting on Fri08/22/23 at 0829, Until Discontinu ed, Routine, Nausea and Vomiting (N/V) [facility] diphenhydrA MINE (BENADRYL) tablet 25 mg 2022-09 03:00: 00 08-22 03:19 :00 No 25mg 25 mg, Oral, ONCE, 1 dose, On Fri08/21/23 at 2100, Routine [facility] ferrous sulfate 325 mg (65 mg iron) tablet 2022-09 00:00: 00 09-26 00:00 :00 No [id number] 325mg Take 1 tablet by mouth in the morning. [facility] cyclobenzap rine (FLEXERIL) tablet 10 mg 2022-09 22:15: 00 08-21 22:06 :00 No 10mg 10 mg, Oral, ONCE NOW, 1 dose, On Fri08/21/23 at 1615, Routine [facility] terbutaline (BRETHINE) injection 0.25 mg 2022-09 19:45: 00 08-21 19:08 :00 No .25mg 0.25 mg, Subcutaneo us, ONCE, 1 dose, On Fri08/21/23 at 1345, Routine [facility] lactated ringers IV infusion 1,000 mL 2022-09 18:00: 00 08-21 19:10 :00 No 1000mL at 999 mL/hr, 1,000 mL, IV Infusion, ONCE, 1 dose, On Fri08/21/23 at 1200, Routine [facility] acetaminoph en (TYLENOL) tablet 1,000 mg 2022-09 17:00: 00 08-21 16:12 :00 No 1000mg 1,000 mg, Oral, ONCE, 1 dose, On Fri08/21/23 at 1100, Routine [facility] ferrous sulfate tablet 325 mg 2022-09 15:00: 00 Yes 325mg 325 mg, Oral, DAILY, First dose on Fri08/21/23 at 0900, Until Discontinu ed, Routine [facility] SERTraline (ZOLOFT) tablet 100 mg 2022-09 15:00: 00 Yes 100mg 100 mg, Oral, DAILY, First dose on Fri08/21/23 at 0900, Until Discontinu ed, Routine [facility] diphenhydrA MINE (BENADRYL) tablet 25 mg 2022-09 [...] Site: Pelvic
Duration of Therapy: 7 days [facility] alum-mag hydroxide-s imeth (MAG-AL PLUS) 200-200-20 mg/5 mL suspension 30 mL 2022-09 07:05: 45 Yes 30mL 30 mL, Oral, Q6HPRN, Starting on Fri08/21/23 at 0105, Until Discontinu ed, Routine, Indigestio n [facility] docusate (COLACE) capsule 200 mg 2022-09 07:05: 45 Yes 200mg 200 mg, Oral, QHSPRN, Starting on Fri08/21/23 at 0105, Until Discontinu ed, Routine, Constipati on [facility] magnesium hydroxide (MILK OF MAGNESIA) 400 mg/5 mL suspension 30 mL 2022-09 07:05: 45 Yes 30mL 30 mL, Oral, QDAILYPRN, Starting on Fri08/21/23 at 0105, Until Discontinu ed, Routine, Constipati on [facility] ondansetron (ZOFRAN (PF)) injection 4 mg 2022-09 06:45: 00 08-21 06:58 :00 No 4mg 4 mg, Slow IV Push, ONCE, On Fri08/21/23 at 0045, For 1 dose
Do ses of ondansetro n 16 mg and above need to be administer ed via IV piggyback. For Dose >=24mg ECG monitoring is advisable.
[facility] acetaminoph en (TYLENOL) tablet 1,000 mg 2022-09 06:45: 00 08-21 06:58 :00 No 1000mg 1,000 mg, Oral, ONCE, 1 dose, On Fri08/21/23 at 0045, Routine [facility] FENTanyl PF (SUBLIMAZE (PF)) injection 100 mcg 2022-09 02:15: 00 08-21 01:26 :00 No 100ug 100 mcg, Slow IV Push, ONCE, 1 dose, On Fri08/20/23 at 2015, Routine [facility] betamethaso ne acet,sod phos (CELESTONE SOLUSPAN) 6 mg/mL injection 12 mg 2022-09 01:45: 00 08-22 01:34 :00 No 12mg 12 mg, Intramuscu lar, Q24H, 2 doses, First dose on Fri08/20/23 at 1945, Last dose on Fri08/21/23 at 1945, Routine [facility] D5W 0.9% NaCl (NS) IV infusion 1,000 mL 2022-09 23:45: 00 08-21 19:39 :48 No 1000mL at 125 mL/hr, 1,000 mL, IV Infusion, CONTINUOUS , Starting on Fri08/20/23 at 1745, Until Fri08/21/23 at 1339, Routine [facility] SERTraline 100 mg tablet 2022-09 00:00: 00 09-11 00:00 :00 No [id number] 109 100mg Take 1 tablet by mouth in the morning. [facility] Nitrofurant oin&Nit. Macrocryst (MACROBID) 100 mg capsule 2022-09 00:00: 00 08-12 05:59 :00 No [id number] 100mg Take 1 capsule by mouth in the morning and 1 capsule in the evening. Do all this for 7 days. [facility] acetaminoph en (TYLENOL) tablet 650 mg 2022-09 10:00: 00 07-29 09:53 :00 No 650mg 650 mg, Oral, ONCE, 1 dose, On Fri07/29/23 at 0400, Routine [facility] SERTraline 100 mg tablet 05-21 00:00: 00 08-04 00:00 :00 No [id number] 109 100mg Take 1 tablet by mouth in the morning. [facility] ondansetron (ZOFRAN (PF)) injection 4 mg 04-18 20:45: 00 04-18 20:21 :00 No 4mg 4 mg, Slow IV Push, ONCE, On Fri04/18/23 at 1545, For 1 dose
Do ses of ondansetro n 16 mg and above need to be administer ed via IV piggyback. For Dose >=24mg ECG monitoring is advisable.
[facility] NaCl 0.9% (NS) bolus infusion 1,000 mL 04-18 20:30: 00 04-18 19:32 :00 No 1000mL at 999 mL/hr, 1,000 mL, IV Infusion, ONCE, 1 dose, On Fri04/18/23 at 1530, STAT [facility] NaCl 0.9% (NS) bolus infusion 1,000 mL 04-18 19:15: 00 04-18 18:27 :00 No 1000mL at 999 mL/hr, 1,000 mL, IV Infusion, ONCE, 1 dose, On Fri04/18/23 at 1415, STAT [facility] metroNIDAZO LE (FLAGYL) 500 mg tablet 04-18 00:00: 00 08-04 00:00 :00 No [id number] 500mg Take 1 tablet by mouth every 12 (twelve) hours. [facility] fluconazole (DIFLUCAN) 150 mg tablet 04-07 00:00: 00 04-08 04:59 :00 No [id number] 150mg Take 1 tablet by mouth once now for 1 dose. [facility] proMETHazin e 25 mg tablet 04-03 00:00: 00 09-26 00:00 :00 No [id number] 25mg Take 1 tablet by mouth every 4 (four) hours as needed for Nausea and Vomiting (N/V). [facility] SERTraline (ZOLOFT) 50 mg tablet 04-03 00:00: 00 05-08 04:59 :00 No [id number] 109 Take 1 tablet by mouth daily for 4 days, THEN 2 tablets daily for 30 days. [facility] vit 33-iron-fol ic-dha (SELECT-OB + DHA) 29 mg iron-1 mg -250 mg combo pack 03-11 00:00: 00 Yes [id number] 1{packe t} Take 1 Packet by mouth in the morning. [facility] vit 33-iron-fol ic-dha (SELECT-OB + DHA) 29 mg iron-1 mg -250 mg combo pack 03-11 00:00: 00 09-26 00:00 :00 No [id number] 1{packe t} Take 1 Packet by mouth in the morning. [facility] proMETHazin e 25 mg tablet 02-18 00:00: 00 04-03 00:00 :00 No [id number] 25mg Take 1 tablet by mouth every 4 (four) hours as needed for Nausea and Vomiting (N/V). [facility] metroNIDAZO LE 500 mg tablet 02-14 00:00: 00 02-15 04:59 :00 No [id number] 2000mg Take 4 tablets by mouth once now for 1 dose. [facility] ondansetron (ZOFRAN (PF)) injection 4 mg 01-17 04:00: 00 01-17 03:11 :00 No 4mg 4 mg, Slow IV Push, ONCE, 1 dose, On Fri01/16/22 at 2300, ABHAY [facility] NaCl 0.9% (NS) bolus infusion 1,000 mL 01-17 04:00: 01-17 03:52 :00 No 1000mL at 999 mL/hr, 1,000 mL, IV Infusion, ONCE, 1 dose, On Fri01/16/22 at 2300, ABHAY [facility] ondansetron 4 mg disintegrat ing tablet 01-16 00:00: 04-03 00:00 :00 No [id number] 4mg Take 1 tablet by mouth every 8 (eight) hours as needed for Nausea and Vomiting (N/V). [facility] azithromyci n 250 mg tablet 12-17 00:00: 02-11 00:00 :00 No [id number] 250mg Take 1 tablet by mouth daily. Take 500 mg day 1, then 250 mg days 2 to 5. [facility] Nitrofurant oin&Nit. Macrocryst 100 mg capsule 05-04 00:00: 00 05-12 04:59 :00 No [id number] 100mg Take 1 capsule by mouth 2 (two) times daily for 7 days. [facility] metroNIDAZO LE 500 mg tablet 04-30 00:00: 00 05-04 00:00 :00 No [id number] 500mg Take 1 tablet by mouth every 12 (twelve) hours. [facility] fluconazole (DIFLUCAN) 200 mg tablet 04-29 00:00: 00 05-04 00:00 :00 No [id number] 200mg Take 1 tablet by mouth daily. [facility] [id number]-jbvy, carb,glu-FA -dss-dha (CITRANATAL DHA, ALGAL OIL,) 27 mg iron-1 mg -50 mg-250 mg Cmpk 415 00:00: 00 Yes [id number] 9106 Take 1 TAB-CAP/M2 by mouth daily. [facility] Immunizations Ordered Immunization Name Filled Immunization Name Date Status Comments Source SARS-COV-2 COVID-19 VACCINE - (MODERNA) 2021-11-01 00:00:00 Completed [facility] SARS-COV-2 COVID-19 VACCINE - (MODERNA) 2021-11-01 00:00:00 Completed [facility] SARS-COV-2 COVID-19 VACCINE - (MODERNA) 2021-11-01 00:00:00 Completed [facility] SARS-COV-2 COVID-19 VACCINE - (MODERNA) 2021-11-01 00:00:00 Completed [facility] SARS-COV-2 COVID-19 VACCINE - (MODERNA) 2021-11-01 00:00:00 Completed [facility] SARS-COV-2 COVID-19 VACCINE - (MODERNA) 2021-11-01 00:00:00 Completed [facility] SARS-COV-2 COVID-19 VACCINE - (MODERNA) 2021-11-01 00:00:00 Completed [facility] SARS-COV-2 COVID-19 VACCINE - (MODERNA) 2021-11-01 00:00:00 Completed [facility] SARS-COV-2 COVID-19 VACCINE - (MODERNA) 2021-11-01 00:00:00 Completed [facility] SARS-COV-2 COVID-19 VACCINE - (MODERNA) 2021-11-01 00:00:00 Completed [facility] SARS-COV-2 COVID-19 VACCINE - (MODERNA) 2021-11-01 00:00:00 Completed [facility] SARS-COV-2 COVID-19 VACCINE - (MODERNA) 2021-11-01 00:00:00 Completed [facility] SARS-COV-2 COVID-19 VACCINE - (MODERNA) 2021-11-01 00:00:00 Completed [facility] SARS-COV-2 COVID-19 VACCINE - (MODERNA) 2021-11-01 00:00:00 Completed [facility] SARS-COV-2 COVID-19 VACCINE - (MODERNA) 2021-11-01 00:00:00 Completed [facility] [facility] SARS-COV-2 COVID-19 VACCINE - (MODERNA) 2021-11-01 00:00:00 Completed [facility] SARS-COV-2 COVID-19 VACCINE - (MODERNA) 2021-11-01 00:00:00 Completed [facility] SARS-COV-2 COVID-19 VACCINE - (MODERNA) 2021-11-01 00:00:00 Completed [facility] SARS-COV-2 COVID-19 VACCINE - (MODERNA) 2021-11-01 00:00:00 Completed [facility] SARS-COV-2 COVID-19 VACCINE - (MODERNA) 2021-11-01 00:00:00 Completed [facility] SARS-COV-2 COVID-19 VACCINE - (MODERNA) 2021-11-01 00:00:00 Completed [facility] SARS-COV-2 COVID-19 VACCINE - (MODERNA) 2021-06-08 00:00:00 Completed [facility] SARS-COV-2 COVID-19 VACCINE - (MODERNA) 2021-06-08 00:00:00 Completed [facility] SARS-COV-2 COVID-19 VACCINE - (MODERNA) 2021-06-08 00:00:00 Completed [facility] SARS-COV-2 COVID-19 VACCINE - (MODERNA) 2021-06-08 00:00:00 Completed [facility] SARS-COV-2 COVID-19 VACCINE - (MODERNA) 2021-06-08 00:00:00 Completed [facility] SARS-COV-2 COVID-19 VACCINE - (MODERNA) 2021-06-08 00:00:00 Completed [facility] SARS-COV-2 COVID-19 VACCINE - (MODERNA) 2021-06-08 00:00:00 Completed [facility] SARS-COV-2 COVID-19 VACCINE - (MODERNA) 2021-06-08 00:00:00 Completed [facility] SARS-COV-2 COVID-19 VACCINE - (MODERNA) 2021-06-08 00:00:00 Completed [facility] SARS-COV-2 COVID-19 VACCINE - (MODERNA) 2021-06-08 00:00:00 Completed [facility] SARS-COV-2 COVID-19 VACCINE - (MODERNA) 2021-06-08 00:00:00 Completed [facility] SARS-COV-2 COVID-19 VACCINE - (MODERNA) 2021-06-08 00:00:00 Completed [facility] SARS-COV-2 COVID-19 VACCINE - (MODERNA) 2021-06-08 00:00:00 Completed [facility] SARS-COV-2 COVID-19 VACCINE - (MODERNA) 2021-06-08 00:00:00 Completed [facility] SARS-COV-2 COVID-19 VACCINE - (MODERNA) 2021-06-08 00:00:00 Completed [facility] SARS-COV-2 COVID-19 VACCINE - (MODERNA) 2021-06-08 00:00:00 Completed [facility] SARS-COV-2 COVID-19 VACCINE - (MODERNA) 2021-06-08 00:00:00 Completed [facility] SARS-COV-2 COVID-19 VACCINE - (MODERNA) 2021-06-08 00:00:00 Completed [facility] SARS-COV-2 COVID-19 VACCINE - (MODERNA) 2021-06-08 00:00:00 Completed [facility] SARS-COV-2 COVID-19 VACCINE - (MODERNA) 2021-06-08 00:00:00 Completed [facility] SARS-COV-2 COVID-19 VACCINE - (MODERNA) 2021-06-08 00:00:00 Completed [facility] Influenza Virus Vaccine Quad .5 mL IM 6+ MO 2019-06-29 00:00:00 Completed [facility] Influenza Virus Vaccine Quad .5 mL IM 6+ MO 2019-06-29 00:00:00 Completed [facility] Influenza Virus Vaccine Quad .5 mL IM 6+ MO 2019-06-29 00:00:00 Completed [facility] Influenza Virus Vaccine Quad .5 mL IM 6+ MO 2019-06-29 00:00:00 Completed [facility] Influenza Virus Vaccine Quad .5 mL IM 6+ MO (FLUZONE/FLULAVAL/FL UARIX) 2019-06-29 00:00:00 Completed [facility] Influenza Virus Vaccine Quad .5 mL IM 6+ MO (FLUZONE/FLULAVAL/FL UARIX) 2019-06-29 00:00:00 Completed [facility] Influenza Virus Vaccine Quad .5 mL IM 6+ MO (FLUZONE/FLULAVAL/FL UARIX) 2019-06-29 00:00:00 Completed [facility] Influenza Virus Vaccine Quad .5 mL IM 6+ MO (FLUZONE/FLULAVAL/FL UARIX) 2019-06-29 00:00:00 Completed [facility] Influenza Virus Vaccine Quad .5 mL IM 6+ MO 2019-06-29 00:00:00 Completed [facility] Influenza Virus Vaccine Quad .5 mL IM 6+ MO 2019-06-29 00:00:00 Completed [facility] Influenza Virus Vaccine Quad .5 mL IM 6+ MO 2019-06-29 00:00:00 Completed [facility] Influenza Virus Vaccine Quad .5 mL IM 6+ MO 2019-06-29 00:00:00 Completed [facility] Influenza Virus Vaccine Quad .5 mL IM 6+ MO 2019-06-29 00:00:00 Completed [facility] Influenza Virus Vaccine Quad .5 mL IM 6+ MO 2019-06-29 00:00:00 Completed [facility] Influenza Virus Vaccine Quad .5 mL IM 6+ MO 2019-06-29 00:00:00 Completed [facility] Influenza Virus Vaccine Quad .5 mL IM 6+ MO 2019-06-29 00:00:00 Completed [facility] Influenza Virus Vaccine Quad .5 mL IM 6+ MO 2019-06-29 00:00:00 Completed [facility] Influenza Virus Vaccine Quad .5 mL IM 6+ MO 2019-06-29 00:00:00 Completed [facility] Influenza Virus Vaccine Quad .5 mL IM 6+ MO 2019-06-29 00:00:00 Completed [facility] Influenza Virus Vaccine Quad .5 mL IM 6+ MO 2019-06-29 00:00:00 Completed [facility] Influenza Virus Vaccine Quad .5 mL IM 6+ MO 2019-06-29 00:00:00 Completed [facility] Influenza Virus Vaccine Quad .5 mL IM 6+ MO 2019-06-29 00:00:00 Completed [facility] Influenza Virus Vaccine Quad .5 mL IM 6+ MO 2019-06-29 00:00:00 Completed [facility] Influenza Virus Vaccine Quad .5 mL IM 6+ MO 2019-06-29 00:00:00 Completed [facility] TDAP (ADACEL) VACCINE 2019-05-27 00:00:00 Completed [facility] TDAP (ADACEL) VACCINE 2019-05-27 00:00:00 Completed [facility] TDAP (ADACEL) VACCINE 2019-05-27 00:00:00 Completed [facility] TDAP (ADACEL) VACCINE 2019-05-27 00:00:00 Completed [facility] TDAP (ADACEL) VACCINE 2019-05-27 00:00:[address] [facility] TDAP (ADACEL) VACCINE 2019-05-27 00:00:00 Completed [facility] TDAP (ADACEL) VACCINE 2019-05-27 00:00:[address] [facility] TDAP (ADACEL) VACCINE 2019-05-27 00:00:00 Completed [facility] TDAP (ADACEL) VACCINE 2019-05-27 00:00:[address] [facility] TDAP (ADACEL) VACCINE 2019-05-27 00:00:[address] [facility] TDAP (ADACEL) VACCINE 2019-05-27 00:00:00 Completed [facility] TDAP (ADACEL) VACCINE 2019-05-27 00:00:00 Completed [facility] TDAP (ADACEL) VACCINE 2019-05-27 00:00:00 Completed [facility] TDAP (ADACEL) VACCINE 2019-05-27 00:00:00 Completed [facility] TDAP (ADACEL) VACCINE 2019-05-27 00:00:00 Completed [facility] TDAP (ADACEL) VACCINE 2019-05-27 00:00:00 Completed [facility] TDAP (ADACEL) VACCINE 2019-05-27 00:00:00 Completed [facility] TDAP (ADACEL) VACCINE 2019-05-27 00:00:00 Completed [facility] TDAP (ADACEL) VACCINE 2019-05-27 00:00:00 Completed [facility] TDAP (ADACEL) VACCINE 2019-05-27 00:00:00 Completed [facility] TDAP (ADACEL) VACCINE 2019-05-27 00:00:00 Completed [facility] TDAP (ADACEL) VACCINE 2019-05-27 00:00:00 Completed [facility] TDAP (ADACEL) VACCINE 2019-05-27 00:00:00 Completed [facility] TDAP (ADACEL) VACCINE 2019-05-27 00:00:00 Completed [facility] TDAP (ADACEL) VACCINE 2019-05-27 00:00:00 Completed [facility] TDAP (ADACEL) VACCINE 2019-04-01 00:00:00 Completed [facility] TDAP (ADACEL) VACCINE 2019-04-01 00:00:00 Completed [facility] TDAP (ADACEL) VACCINE 2019-04-01 00:00:00 Completed [facility] TDAP (ADACEL) VACCINE 2019-04-01 00:00:00 Completed [facility] TDAP (ADACEL) VACCINE 2019-04-01 00:00:00 Completed [facility] TDAP (ADACEL) VACCINE 2019-04-01 00:00:00 Completed [facility] TDAP (ADACEL) VACCINE 2019-04-01 00:00:00 Completed [facility] TDAP (ADACEL) VACCINE 2019-04-01 00:00:00 Completed [facility] TDAP (ADACEL) VACCINE 2019-04-01 00:00:00 Completed [facility] TDAP (ADACEL) VACCINE 2019-04-01 00:00:00 Completed [facility] TDAP (ADACEL) VACCINE 2019-04-01 00:00:00 Completed [facility] TDAP (ADACEL) VACCINE 2019-04-01 00:00:00 Completed [facility] TDAP (ADACEL) VACCINE 2019-04-01 00:00:00 Completed [facility] TDAP (ADACEL) VACCINE 2019-04-01 00:00:00 Completed [facility] TDAP (ADACEL) VACCINE 2019-04-01 00:00:00 Completed [facility] TDAP (ADACEL) VACCINE 2019-04-01 00:00:00 Completed [facility] TDAP (ADACEL) VACCINE 2019-04-01 00:00:00 Completed [facility] TDAP (ADACEL) VACCINE 2019-04-01 00:00:00 Completed [facility] TDAP (ADACEL) VACCINE 2019-04-01 00:00:00 Completed [facility] TDAP (ADACEL) VACCINE 2019-04-01 00:00:00 Completed [facility] TDAP (ADACEL) VACCINE 2019-04-01 00:00:00 Completed [facility] TDAP (ADACEL) VACCINE 2019-04-01 00:00:00 Completed [facility] TDAP (ADACEL) VACCINE 2019-04-01 00:00:00 Completed [facility] TDAP (ADACEL) VACCINE 2019-04-01 00:00:00 Completed [facility] TDAP (ADACEL) VACCINE 2019-04-01 00:00:00 Completed [facility] TDAP (ADACEL) VACCINE 2019-04-01 00:00:00 Completed [facility] TDAP (ADACEL) VACCINE 2019-04-01 00:00:00 Completed [facility] TDAP (ADACEL) VACCINE 2019-04-01 00:00:00 Completed [facility] TDAP (ADACEL) VACCINE 2019-04-01 00:00:00 Completed [facility] TDAP (ADACEL) VACCINE 2019-04-01 00:00:00 Completed [facility] TDAP (ADACEL) VACCINE 2019-04-01 00:00:00 Completed [facility] TDAP (ADACEL) VACCINE 2019-04-01 00:00:00 Completed [facility] TDAP (ADACEL) VACCINE 2019-04-01 00:00:00 Completed [facility] TDAP (ADACEL) VACCINE 2019-04-01 00:00:00 Completed [facility] TDAP (ADACEL) VACCINE 2019-04-01 00:00:00 Completed [facility] TDAP (ADACEL) VACCINE 2019-04-01 00:00:00 Completed [facility] TDAP (ADACEL) VACCINE 2019-04-01 00:00:00 Completed [facility] Influenza Virus Vaccine Quad .5 mL IM 6+ MO 2019-01-04 00:00:00 Completed [facility] Influenza Virus Vaccine Quad .5 mL IM 6+ MO 2019-01-04 00:00:00 Completed [facility] Influenza Virus Vaccine Quad .5 mL IM 6+ MO 2019-01-04 00:00:00 Completed [facility] Influenza Virus Vaccine Quad .5 mL IM 6+ MO 2019-01-04 00:00:00 Completed [facility] Influenza Virus Vaccine Quad .5 mL IM 6+ MO 2019-01-04 00:00:00 Completed [facility] Influenza Virus Vaccine Quad .5 mL IM 6+ MO (FLUZONE/FLULAVAL/FL UARIX) 2019-01-04 00:00:00 Completed [facility] Influenza Virus Vaccine Quad .5 mL IM 6+ MO (FLUZONE/FLULAVAL/FL UARIX) 2019-01-04 00:00:00 Completed [facility] Influenza Virus Vaccine Quad .5 mL IM 6+ MO (FLUZONE/FLULAVAL/FL UARIX) 2019-01-04 00:00:00 Completed [facility] Influenza Virus Vaccine Quad .5 mL IM 6+ MO (FLUZONE/FLULAVAL/FL UARIX) 2019-01-04 00:00:00 Completed [facility] Influenza Virus Vaccine Quad .5 mL IM 6+ MO 2019-01-04 00:00:00 Completed [facility] Influenza Virus Vaccine Quad .5 mL IM 6+ MO 2019-01-04 00:00:00 Completed [facility] Influenza Virus Vaccine Quad .5 mL IM 6+ MO 2019-01-04 00:00:00 Completed [facility] Influenza Virus Vaccine Quad .5 mL IM 6+ MO 2019-01-04 00:00:00 Completed [facility] Influenza Virus Vaccine Quad .5 mL IM 6+ MO 2019-01-04 00:00:00 Completed [facility] Influenza Virus Vaccine Quad .5 mL IM 6+ MO 2019-01-04 00:00:00 Completed [facility] Influenza Virus Vaccine Quad .5 mL IM 6+ MO 2019-01-04 00:00:00 Completed [facility] Influenza Virus Vaccine Quad .5 mL IM 6+ MO 2019-01-04 00:00:00 Completed [facility] Influenza Virus Vaccine Quad .5 mL IM 6+ MO 2019-01-04 00:00:00 Completed [facility] Influenza Virus Vaccine Quad .5 mL IM 6+ MO 2019-01-04 00:00:00 Completed [facility] Influenza Virus Vaccine Quad .5 mL IM 6+ MO 2019-01-04 00:00:00 Completed [facility] Influenza Virus Vaccine Quad .5 mL IM 6+ MO 2019-01-04 00:00:00 Completed [facility] Influenza Virus Vaccine Quad .5 mL IM 6+ MO 2019-01-04 00:00:00 Completed [facility] Influenza Virus Vaccine Quad .5 mL IM 6+ MO 2019-01-04 00:00:00 Completed [facility] Influenza Virus Vaccine Quad .5 mL IM 6+ MO 2019-01-04 00:00:00 Completed [facility] Influenza Virus Vaccine Quad .5 mL IM 6+ MO 2019-01-04 00:00:00 Completed [facility] Influenza Virus Vaccine Quad .5 mL IM 6+ MO 2019-01-04 00:00:00 Completed [facility] Influenza Virus Vaccine Quad .5 mL IM 6+ MO 2019-01-04 00:00:00 Completed [facility] Influenza Virus Vaccine Quad .5 mL IM 6+ MO 2019-01-04 00:00:00 Completed [facility] Influenza Virus Vaccine Quad .5 mL IM 6+ MO 2019-01-04 00:00:00 Completed [facility] Influenza Virus Vaccine Quad .5 mL IM 6+ MO 2019-01-04 00:00:00 Completed [facility] Influenza Virus Vaccine Quad .5 mL IM 6+ MO 2019-01-04 00:00:00 Completed [facility] Influenza Virus Vaccine Quad .5 mL IM 6+ MO 2019-01-04 00:00:00 Completed [facility] Influenza Virus Vaccine Quad .5 mL IM 6+ MO 2019-01-04 00:00:00 Completed [facility] Influenza Virus Vaccine Quad .5 mL IM 6+ MO 2019-01-04 00:00:00 Completed [facility] Influenza Virus Vaccine Quad .5 mL IM 6+ MO 2019-01-04 00:00:00 Completed [facility] Influenza Virus Vaccine Quad .5 mL IM 6+ MO 2019-01-04 00:00:00 Completed [facility] Influenza Virus Vaccine Quad .5 mL IM 6+ MO 2019-01-04 00:00:00 Completed [facility] HPV 2015-04-13 00:00:00 Completed [facility] Meningococcal Polysaccharide (groups A, C, Y and W-135) conjugate vaccine (MCV4P) 2015-04-13 00:00:00 Completed [facility] TDAP (ADACEL) VACCINE 2015-04-13 00:00:00 Completed [facility] HPV 2015-04-13 00:00:00 Completed [facility] Meningococcal Polysaccharide (groups A, C, Y and W-135) conjugate vaccine (MCV4P) 2015-04-13 00:00:00 Completed [facility] TDAP (ADACEL) VACCINE 2015-04-13 00:00:00 Completed [facility] HPV 2015-04-13 00:00:00 Completed [facility] HPV 2015-04-13 00:00:00 Completed [facility] Meningococcal Polysaccharide (groups A, C, Y and W-135) conjugate vaccine (MCV4P) 2015-04-13 00:00:00 Completed [facility] TDAP (ADACEL) VACCINE 2015-04-13 00:00:00 Completed [facility] Meningococcal Polysaccharide (groups A, C, Y and W-135) conjugate vaccine (MCV4P) 2015-04-13 00:00:00 Completed [facility] TDAP (ADACEL) VACCINE 2015-04-13 00:00:00 Completed [facility] HPV 2015-04-13 00:00:00 Completed [facility] Meningococcal Polysaccharide (groups A, C, Y and W-135) conjugate vaccine (MCV4P) 2015-04-13 00:00:00 Completed [facility] TDAP (ADACEL) VACCINE 2015-04-13 00:00:00 Completed [facility] HPV 2015-04-13 00:00:00 Completed [facility] Meningococcal Polysaccharide (groups A, C, Y and W-135) conjugate vaccine (MCV4P) 2015-04-13 00:00:00 Completed [facility] TDAP (ADACEL) VACCINE 2015-04-13 00:00:00 Completed [facility] HPV 2015-04-13 00:00:00 Completed [facility] Meningococcal Polysaccharide (groups A, C, Y and W-135) conjugate vaccine (MCV4P) 2015-04-13 00:00:00 Completed [facility] TDAP (ADACEL) VACCINE 2015-04-13 00:00:00 Completed [facility] HPV 2015-04-13 00:00:00 Completed [facility] Meningococcal Polysaccharide (groups A, C, Y and W-135) conjugate vaccine (MCV4P) 2015-04-13 00:00:00 Completed [facility] TDAP (ADACEL) VACCINE 2015-04-13 00:00:00 Completed [facility] HPV 2015-04-13 00:00:00 Completed [facility] Meningococcal Polysaccharide (groups A, C, Y and W-135) conjugate vaccine (MCV4P) 2015-04-13 00:00:00 Completed [facility] TDAP (ADACEL) VACCINE 2015-04-13 00:00:00 Completed [facility] HPV 2015-04-13 00:00:00 Completed [facility] Meningococcal Polysaccharide (groups A, C, Y and W-135) conjugate vaccine (MCV4P) 2015-04-13 00:00:00 Completed [facility] TDAP (ADACEL) VACCINE 2015-04-13 00:00:00 Completed [facility] HPV 2015-04-13 00:00:00 Completed [facility] Meningococcal Polysaccharide (groups A, C, Y and W-135) conjugate vaccine (MCV4P) 2015-04-13 00:00:00 Completed [facility] TDAP (ADACEL) VACCINE 2015-04-13 00:00:00 Completed [facility] HPV 2015-04-13 00:00:00 Completed [facility] Meningococcal Polysaccharide (groups A, C, Y and W-135) conjugate vaccine (MCV4P) 2015-04-13 00:00:00 Completed [facility] TDAP (ADACEL) VACCINE 2015-04-13 00:00:00 Completed [facility] HPV 2015-04-13 00:00:00 Completed [facility] Meningococcal Polysaccharide (groups A, C, Y and W-135) conjugate vaccine (MCV4P) 2015-04-13 00:00:00 Completed [facility] TDAP (ADACEL) VACCINE 2015-04-13 00:00:00 Completed [facility] HPV 2015-04-13 00:00:00 Completed [facility] Meningococcal Polysaccharide (groups A, C, Y and W-135) conjugate vaccine (MCV4P) 2015-04-13 00:00:00 Completed [facility] TDAP (ADACEL) VACCINE 2015-04-13 00:00:00 Completed [facility] HPV 2015-04-13 00:00:00 Completed [facility] Meningococcal Polysaccharide (groups A, C, Y and W-135) conjugate vaccine (MCV4P) 2015-04-13 00:00:00 Completed [facility] TDAP (ADACEL) VACCINE 2015-04-13 00:00:00 Completed [facility] HPV 2015-04-13 00:00:00 Completed [facility] Meningococcal Polysaccharide (groups A, C, Y and W-135) conjugate vaccine (MCV4P) 2015-04-13 00:00:00 Completed [facility] TDAP (ADACEL) VACCINE 2015-04-13 00:00:00 Completed [facility] HPV 2015-04-13 00:00:00 Completed [facility] Meningococcal Polysaccharide (groups A, C, Y and W-135) conjugate vaccine (MCV4P) 2015-04-13 00:00:00 Completed [facility] TDAP (ADACEL) VACCINE 2015-04-13 00:00:00 Completed [facility] HPV 2015-04-13 00:00:00 Completed [facility] Meningococcal Polysaccharide (groups A, C, Y and W-135) conjugate vaccine (MCV4P) 2015-04-13 00:00:00 Completed [facility] TDAP (ADACEL) VACCINE 2015-04-13 00:00:00 Completed [facility] HPV 2015-04-13 00:00:00 Completed [facility] Meningococcal Polysaccharide (groups A, C, Y and W-135) conjugate vaccine (MCV4P) 2015-04-13 00:00:00 Completed [facility] HPV 2015-04-13 00:00:00 Completed [facility] Meningococcal Polysaccharide (groups A, C, Y and W-135) conjugate vaccine (MCV4P) 2015-04-13 00:00:00 Completed [facility] TDAP (ADACEL) VACCINE 2015-04-13 00:00:00 Completed [facility] TDAP (ADACEL) VACCINE 2015-04-13 00:00:00 Completed [facility] HPV 2015-04-13 00:00:00 Completed [facility] Meningococcal Polysaccharide (groups A, C, Y and W-135) conjugate vaccine (MCV4P) 2015-04-13 00:00:00 Completed [facility] TDAP (ADACEL) VACCINE 2015-04-13 00:00:00 Completed [facility] HPV 2015-04-13 00:00:00 Completed [facility] Meningococcal Polysaccharide (groups A, C, Y and W-135) conjugate vaccine (MCV4P) 2015-04-13 00:00:00 Completed [facility] TDAP (ADACEL) VACCINE 2015-04-13 00:00:00 Completed [facility] HPV 2015-04-13 00:00:00 Completed [facility] Meningococcal Polysaccharide (groups A, C, Y and W-135) conjugate vaccine (MCV4P) 2015-04-13 00:00:00 Completed [facility] TDAP (ADACEL) VACCINE 2015-04-13 00:00:00 Completed [facility] HPV 2015-04-13 00:00:00 Completed [facility] Meningococcal Polysaccharide (groups A, C, Y and W-135) conjugate vaccine (MCV4P) 2015-04-13 00:00:00 Completed [facility] TDAP (ADACEL) VACCINE 2015-04-13 00:00:00 Completed [facility] HPV 2015-04-13 00:00:00 Completed [facility] Meningococcal Polysaccharide (groups A, C, Y and W-135) conjugate vaccine (MCV4P) 2015-04-13 00:00:00 Completed [facility] TDAP (ADACEL) VACCINE 2015-04-13 00:00:00 Completed [facility] HPV 2015-04-13 00:00:00 Completed [facility] Meningococcal Polysaccharide (groups A, C, Y and W-135) conjugate vaccine (MCV4P) 2015-04-13 00:00:00 Completed [facility] TDAP (ADACEL) VACCINE 2015-04-13 00:00:00 Completed [facility] HPV 2015-04-13 00:00:00 Completed [facility] Meningococcal Polysaccharide (groups A, C, Y and W-135) conjugate vaccine (MCV4P) 2015-04-13 00:00:00 Completed [facility] TDAP (ADACEL) VACCINE 2015-04-13 00:00:00 Completed [facility] HPV 2015-04-13 00:00:00 Completed [facility] Meningococcal Polysaccharide (groups A, C, Y and W-135) conjugate vaccine (MCV4P) 2015-04-13 00:00:00 Completed [facility] HPV 2015-04-13 00:00:00 Completed [facility] Meningococcal Polysaccharide (groups A, C, Y and W-135) conjugate vaccine (MCV4P) 2015-04-13 00:00:00 Completed [facility] TDAP (ADACEL) VACCINE 2015-04-13 00:00:00 Completed [facility] TDAP (ADACEL) VACCINE 2015-04-13 00:00:00 Completed [facility] HPV 2015-04-13 00:00:00 Completed [facility] Meningococcal Polysaccharide (groups A, C, Y and W-135) conjugate vaccine (MCV4P) 2015-04-13 00:00:00 Completed [facility] TDAP (ADACEL) VACCINE 2015-04-13 00:00:00 Completed [facility] HPV 2015-04-13 00:00:00 Completed [facility] Meningococcal Polysaccharide (groups A, C, Y and W-135) conjugate vaccine (MCV4P) 2015-04-13 00:00:00 Completed [facility] TDAP (ADACEL) VACCINE 2015-04-13 00:00:00 Completed [facility] HPV 2015-04-13 00:00:00 Completed [facility] Meningococcal Polysaccharide (groups A, C, Y and W-135) conjugate vaccine (MCV4P) 2015-04-13 00:00:00 Completed [facility] TDAP (ADACEL) VACCINE 2015-04-13 00:00:00 Completed [facility] HPV 2015-04-13 00:00:00 Completed [facility] Meningococcal Polysaccharide (groups A, C, Y and W-135) conjugate vaccine (MCV4P) 2015-04-13 00:00:00 Completed [facility] TDAP (ADACEL) VACCINE 2015-04-13 00:00:00 Completed [facility] HPV 2015-04-13 00:00:00 Completed [facility] Meningococcal Polysaccharide (groups A, C, Y and W-135) conjugate vaccine (MCV4P) 2015-04-13 00:00:00 Completed [facility] TDAP (ADACEL) VACCINE 2015-04-13 00:00:00 Completed [facility] HPV 2015-04-13 00:00:00 Completed [facility] Meningococcal Polysaccharide (groups A, C, Y and W-135) conjugate vaccine (MCV4P) 2015-04-13 00:00:00 Completed [facility] TDAP (ADACEL) VACCINE 2015-04-13 00:00:00 Completed [facility] HPV 2015-04-13 00:00:00 Completed [facility] Meningococcal Polysaccharide (groups A, C, Y and W-135) conjugate vaccine (MCV4P) 2015-04-13 00:00:00 Completed [facility] TDAP (ADACEL) VACCINE 2015-04-13 00:00:00 Completed [facility] HPV 2015-04-13 00:00:00 Completed [facility] Meningococcal Polysaccharide (groups A, C, Y and W-135) conjugate vaccine (MCV4P) 2015-04-13 00:00:00 Completed [facility] TDAP (ADACEL) VACCINE 2015-04-13 00:00:00 Completed [facility] HPV 2012-06-29 00:00:00 Completed [facility] HPV 2012-06-29 00:00:00 Completed [facility] HPV 2012-06-29 00:00:00 Completed [facility] HPV 2012-06-29 00:00:00 Completed [facility] HPV 2012-06-29 00:00:00 Completed [facility] HPV 2012-06-29 00:00:00 Completed [facility] HPV 2012-06-29 00:00:00 Completed [facility] HPV 2012-06-29 00:00:00 Completed [facility] HPV 2012-06-29 00:00:00 Completed [facility] HPV 2012-06-29 00:00:00 Completed [facility] HPV 2012-06-29 00:00:00 Completed [facility] HPV 2012-06-29 00:00:00 Completed [facility] HPV 2012-06-29 00:00:00 Completed [facility] HPV 2012-06-29 00:00:00 Completed [facility] HPV 2012-06-29 00:00:00 Completed [facility] HPV 2012-06-29 00:00:00 Completed [facility] HPV 2012-06-29 00:00:00 Completed [facility] HPV 2012-06-29 00:00:00 Completed [facility] HPV 2012-06-29 00:00:00 Completed [facility] HPV 2012-06-29 00:00:00 Completed [facility] HPV 2012-06-29 00:00:00 Completed [facility] HPV 2012-06-29 00:00:00 Completed [facility] HPV 2012-06-29 00:00:00 Completed [facility] HPV 2012-06-29 00:00:00 Completed [facility] Tetanus/Diptheria 2009-12-12 00:00:00 Completed [facility] Meningococcal Polysaccharide (groups A, C, Y and W-135) conjugate vaccine (MCV4P) 2009-12-12 00:00:00 Completed [facility] Varicella (varivax)(chicken pox) 2009-12-12 00:00:00 Completed [facility] HEPATITIS A 2009-12-12 00:00:00 Completed [facility] Tetanus/Diptheria 2009-12-12 00:00:00 Completed [facility] Meningococcal Polysaccharide (groups A, C, Y and W-135) conjugate vaccine (MCV4P) 2009-12-12 00:00:00 Completed [facility] Varicella (varivax)(chicken pox) 2009-12-12 00:00:00 Completed [facility] HEPATITIS A 2009-12-12 00:00:00 Completed [facility] Tetanus/Diptheria 2009-12-12 00:00:00 Completed [facility] Meningococcal Polysaccharide (groups A, C, Y and W-135) conjugate vaccine (MCV4P) 2009-12-12 00:00:00 Completed [facility] Varicella (varivax)(chicken pox) 2009-12-12 00:00:00 Completed [facility] HEPATITIS A 2009-12-12 00:00:00 Completed [facility] Tetanus/Diptheria 2009-12-12 00:00:00 Completed [facility] Meningococcal Polysaccharide (groups A, C, Y and W-135) conjugate vaccine (MCV4P) 2009-12-12 00:00:00 Completed [facility] Varicella (varivax)(chicken pox) 2009-12-12 00:00:00 Completed [facility] HEPATITIS A 2009-12-12 00:00:00 Completed [facility] Tetanus/Diptheria 2009-12-12 00:00:00 Completed [facility] Meningococcal Polysaccharide (groups A, C, Y and W-135) conjugate vaccine (MCV4P) 2009-12-12 00:00:00 Completed [facility] Varicella (varivax)(chicken pox) 2009-12-12 00:00:00 Completed [facility] HEPATITIS A 2009-12-12 00:00:00 Completed [facility] Tetanus/Diptheria 2009-12-12 00:00:00 Completed [facility] Meningococcal Polysaccharide (groups A, C, Y and W-135) conjugate vaccine (MCV4P) 2009-12-12 00:00:00 Completed [facility] Varicella (varivax)(chicken pox) 2009-12-12 00:00:00 Completed [facility] HEPATITIS A 2009-12-12 00:00:00 Completed [facility] Tetanus/Diptheria 2009-12-12 00:00:00 Completed [facility] Meningococcal Polysaccharide (groups A, C, Y and W-135) conjugate vaccine (MCV4P) 2009-12-12 00:00:00 Completed [facility] Varicella (varivax)(chicken pox) 2009-12-12 00:00:00 Completed [facility] HEPATITIS A 2009-12-12 00:00:00 Completed [facility] Tetanus/Diptheria 2009-12-12 00:00:00 Completed [facility] Meningococcal Polysaccharide (groups A, C, Y and W-135) conjugate vaccine (MCV4P) 2009-12-12 00:00:00 Completed [facility] Varicella (varivax)(chicken pox) 2009-12-12 00:00:00 Completed [facility] HEPATITIS A 2009-12-12 00:00:00 Completed [facility] Tetanus/Diptheria 2009-12-12 00:00:00 Completed [facility] Meningococcal Polysaccharide (groups A, C, Y and W-135) conjugate vaccine (MCV4P) 2009-12-12 00:00:00 Completed [facility] Varicella (varivax)(chicken pox) 2009-12-12 00:00:00 Completed [facility] Meningococcal Polysaccharide (groups A, C, Y and W-135) conjugate vaccine (MCV4P) 2009-12-12 00:00:00 Completed [facility] Varicella (varivax)(chicken pox) 2009-12-12 00:00:00 Completed [facility] Meningococcal Polysaccharide (groups A, C, Y and W-135) conjugate vaccine (MCV4P) 2009-12-12 00:00:00 Completed [facility] Varicella (varivax)(chicken pox) 2009-12-12 00:00:00 Completed [facility] Meningococcal Polysaccharide (groups A, C, Y and W-135) conjugate vaccine (MCV4P) 2009-12-12 00:00:00 Completed [facility] Varicella (varivax)(chicken pox) 2009-12-12 00:00:00 Completed [facility] HEPATITIS A 2009-12-12 00:00:00 Completed [facility] Tetanus/Diptheria 2009-12-12 00:00:00 Completed [facility] Meningococcal Polysaccharide (groups A, C, Y and W-135) conjugate vaccine (MCV4P) 2009-12-12 00:00:00 Completed [facility] Varicella (varivax)(chicken pox) 2009-12-12 00:00:00 Completed [facility] HEPATITIS A 2009-12-12 00:00:00 Completed [facility] Tetanus/Diptheria 2009-12-12 00:00:00 Completed [facility] Meningococcal Polysaccharide (groups A, C, Y and W-135) conjugate vaccine (MCV4P) 2009-12-12 00:00:00 Completed [facility] Varicella (varivax)(chicken pox) 2009-12-12 00:00:00 Completed [facility] HEPATITIS A 2009-12-12 00:00:00 Completed [facility] Tetanus/Diptheria 2009-12-12 00:00:00 Completed [facility] Meningococcal Polysaccharide (groups A, C, Y and W-135) conjugate vaccine (MCV4P) 2009-12-12 00:00:00 Completed [facility] Varicella (varivax)(chicken pox) 2009-12-12 00:00:00 Completed [facility] HEPATITIS A 2009-12-12 00:00:00 Completed [facility] Tetanus/Diptheria 2009-12-12 00:00:00 Completed [facility] Meningococcal Polysaccharide (groups A, C, Y and W-135) conjugate vaccine (MCV4P) 2009-12-12 00:00:00 Completed [facility] Varicella (varivax)(chicken pox) 2009-12-12 00:00:00 Completed [facility] HEPATITIS A 2009-12-12 00:00:00 Completed [facility] Tetanus/Diptheria 2009-12-12 00:00:00 Completed [facility] Meningococcal Polysaccharide (groups A, C, Y and W-135) conjugate vaccine (MCV4P) 2009-12-12 00:00:00 Completed [facility] Varicella (varivax)(chicken pox) 2009-12-12 00:00:00 Completed [facility] HEPATITIS A 2009-12-12 00:00:00 Completed [facility] Tetanus/Diptheria 2009-12-12 00:00:00 Completed [facility] Meningococcal Polysaccharide (groups A, C, Y and W-135) conjugate vaccine (MCV4P) 2009-12-12 00:00:00 Completed [facility] Varicella (varivax)(chicken pox) 2009-12-12 00:00:00 Completed [facility] HEPATITIS A 2009-12-12 00:00:00 Completed [facility] Tetanus/Diptheria 2009-12-12 00:00:00 Completed [facility] Meningococcal Polysaccharide (groups A, C, Y and W-135) conjugate vaccine (MCV4P) 2009-12-12 00:00:00 Completed [facility] Varicella (varivax)(chicken pox) 2009-12-12 00:00:00 Completed [facility] HEPATITIS A 2009-12-12 00:00:00 Completed [facility] Tetanus/Diptheria 2009-12-12 00:00:00 Completed [facility] Meningococcal Polysaccharide (groups A, C, Y and W-135) conjugate vaccine (MCV4P) 2009-12-12 00:00:00 Completed [facility] Varicella (varivax)(chicken pox) 2009-12-12 00:00:00 Completed [facility] HEPATITIS A 2009-12-12 00:00:00 Completed [facility] Tetanus/Diptheria 2009-12-12 00:00:00 Completed [facility] Meningococcal Polysaccharide (groups A, C, Y and W-135) conjugate vaccine (MCV4P) 2009-12-12 00:00:00 Completed [facility] Varicella (varivax)(chicken pox) 2009-12-12 00:00:00 Completed [facility] HEPATITIS A 2009-12-12 00:00:00 Completed [facility] Tetanus/Diptheria 2009-12-12 00:00:00 Completed [facility] Meningococcal Polysaccharide (groups A, C, Y and W-135) conjugate vaccine (MCV4P) 2009-12-12 00:00:00 Completed [facility] Varicella (varivax)(chicken pox) 2009-12-12 00:00:00 Completed [facility] HEPATITIS A 2009-12-12 00:00:00 Completed [facility] Tetanus/Diptheria 2009-12-12 00:00:00 Completed [facility] Meningococcal Polysaccharide (groups A, C, Y and W-135) conjugate vaccine (MCV4P) 2009-12-12 00:00:00 Completed [facility] Varicella (varivax)(chicken pox) 2009-12-12 00:00:00 Completed [facility] HEPATITIS A 2009-12-12 00:00:00 Completed [facility] Tetanus/Diptheria 2009-12-12 00:00:00 Completed [facility] Meningococcal Polysaccharide (groups A, C, Y and W-135) conjugate vaccine (MCV4P) 2009-12-12 00:00:00 Completed [facility] Varicella (varivax)(chicken pox) 2009-12-12 00:00:00 Completed [facility] HEPATITIS A 2009-12-12 00:00:00 Completed [facility] DTaP, Unspecified Formulation 2003-04-28 00:00:00 Completed [facility] MMR 2003-04-28 00:00:00 Completed [facility] IPV 2003-04-28 00:00:00 Completed [facility] DTaP, Unspecified Formulation 2003-04-28 00:00:00 Completed [facility] MMR 2003-04-28 00:00:00 Completed [facility] IPV 2003-04-28 00:00:00 Completed [facility] DTaP, Unspecified Formulation 2003-04-28 00:00:00 Completed [facility] MMR 2003-04-28 00:00:00 Completed [facility] IPV 2003-04-28 00:00:00 Completed [facility] DTaP, Unspecified Formulation 2003-04-28 00:00:00 Completed [facility] MMR 2003-04-28 00:00:00 Completed [facility] IPV 2003-04-28 00:00:00 Completed [facility] DTaP, Unspecified Formulation 2003-04-28 00:00:00 Completed [facility] MMR 2003-04-28 00:00:00 Completed [facility] IPV 2003-04-28 00:00:00 Completed [facility] DTaP, Unspecified Formulation 2003-04-28 00:00:00 Completed [facility] MMR 2003-04-28 00:00:00 Completed [facility] IPV 2003-04-28 00:00:00 Completed [facility] DTaP, Unspecified Formulation 2003-04-28 00:00:00 Completed [facility] MMR 2003-04-28 00:00:00 Completed [facility] IPV 2003-04-28 00:00:00 Completed [facility] DTaP, Unspecified Formulation 2003-04-28 00:00:00 Completed [facility] MMR 2003-04-28 00:00:00 Completed [facility] IPV 2003-04-28 00:00:00 Completed [facility] DTaP, Unspecified Formulation 2003-04-28 00:00:00 Completed [facility] MMR 2003-04-28 00:00:00 Completed [facility] IPV 2003-04-28 00:00:00 Completed [facility] DTaP, Unspecified Formulation 2003-04-28 00:00:00 Completed [facility] MMR 2003-04-28 00:00:00 Completed [facility] IPV 2003-04-28 00:00:00 Completed [facility] DTaP, Unspecified Formulation 2003-04-28 00:00:00 Completed [facility] MMR 2003-04-28 00:00:00 Completed [facility] IPV 2003-04-28 00:00:00 Completed [facility] DTaP, Unspecified Formulation 2003-04-28 00:00:00 Completed [facility] MMR 2003-04-28 00:00:00 Completed [facility] IPV 2003-04-28 00:00:00 Completed [facility] DTaP, Unspecified Formulation 2003-04-28 00:00:00 Completed [facility] MMR 2003-04-28 00:00:00 Completed [facility] IPV 2003-04-28 00:00:00 Completed [facility] DTaP, Unspecified Formulation 2003-04-28 00:00:00 Completed [facility] MMR 2003-04-28 00:00:00 Completed [facility] IPV 2003-04-28 00:00:00 Completed [facility] DTaP, Unspecified Formulation 2003-04-28 00:00:00 Completed [facility] MMR 2003-04-28 00:00:00 Completed [facility] IPV 2003-04-28 00:00:00 Completed [facility] DTaP, Unspecified Formulation 2003-04-28 00:00:00 Completed [facility] MMR 2003-04-28 00:00:00 Completed [facility] IPV 2003-04-28 00:00:00 Completed [facility] DTaP, Unspecified Formulation 2003-04-28 00:00:00 Completed [facility] MMR 2003-04-28 00:00:00 Completed [facility] IPV 2003-04-28 00:00:00 Completed [facility] DTaP, Unspecified Formulation 2003-04-28 00:00:00 Completed [facility] MMR 2003-04-28 00:00:00 Completed [facility] IPV 2003-04-28 00:00:00 Completed [facility] DTaP, Unspecified Formulation 2003-04-28 00:00:00 Completed [facility] MMR 2003-04-28 00:00:00 Completed [facility] IPV 2003-04-28 00:00:00 Completed [facility] DTaP, Unspecified Formulation 2003-04-28 00:00:00 Completed [facility] MMR 2003-04-28 00:00:00 Completed [facility] IPV 2003-04-28 00:00:00 Completed [facility] DTaP, Unspecified Formulation 2003-04-28 00:00:00 Completed [facility] MMR 2003-04-28 00:00:00 Completed [facility] IPV 2003-04-28 00:00:00 Completed [facility] HIB 4 Dose Schedule 2002-11-11 00:00:00 Completed [facility] Hep B, Adol or Pedi Dosage 2002-11-11 00:00:00 Completed [facility] MMR 2002-11-11 00:00:00 Completed [facility] DTaP, Unspecified Formulation 2002-11-11 00:00:00 Completed [facility] Polio (IPV/OPV) 2002-11-11 00:00:00 Completed [facility] IPV 2002-11-11 00:00:00 Completed [facility] Varicella (varivax)(chicken pox) 2002-11-11 00:00:00 Completed [facility] DTAP 2002-11-11 00:00:00 Completed [facility] Hep B, Adol or Pedi Dosage 2002-11-11 00:00:00 Completed [facility] HIB 4 Dose Schedule 2002-11-11 00:00:00 Completed [facility] DTaP, Unspecified Formulation 2002-11-11 00:00:00 Completed [facility] Polio (IPV/OPV) 2002-11-11 00:00:00 Completed [facility] IPV 2002-11-11 00:00:00 Completed [facility] MMR 2002-11-11 00:00:00 Completed [facility] Varicella (varivax)(chicken pox) 2002-11-11 00:00:00 Completed [facility] DTaP, Unspecified Formulation 2002-11-11 00:00:00 Completed [facility] IPV 2002-11-11 00:00:00 Completed [facility] DTaP, Unspecified Formulation 2002-11-11 00:00:00 Completed [facility] IPV 2002-11-11 00:00:00 Completed [facility] DTaP, Unspecified Formulation 2002-11-11 00:00:00 Completed [facility] IPV 2002-11-11 00:00:00 Completed [facility] DTAP 2002-11-11 00:00:00 Completed [facility] HIB 4 Dose Schedule 2002-11-11 00:00:00 Completed [facility] Hep B, Adol or Pedi Dosage 2002-11-11 00:00:00 Completed [facility] DTaP, Unspecified Formulation 2002-11-11 00:00:00 Completed [facility] MMR 2002-11-11 00:00:00 Completed [facility] IPV 2002-11-11 00:00:00 Completed [facility] Polio (IPV/OPV) 2002-11-11 00:00:00 Completed [facility] Varicella (varivax)(chicken pox) 2002-11-11 00:00:00 Completed [facility] DTAP 2002-11-11 00:00:00 Completed [facility] Hep B, Adol or Pedi Dosage 2002-11-11 00:00:00 Completed [facility] DTaP, Unspecified Formulation 2002-11-11 00:00:00 Completed [facility] HIB 4 Dose Schedule 2002-11-11 00:00:00 Completed [facility] IPV 2002-11-11 00:00:00 Completed [facility] Polio (IPV/OPV) 2002-11-11 00:00:00 Completed [facility] MMR 2002-11-11 00:00:00 Completed [facility] DTaP, Unspecified Formulation 2002-11-11 00:00:00 Completed [facility] Varicella (varivax)(chicken pox) 2002-11-11 00:00:00 Completed [facility] IPV 2002-11-11 00:00:00 Completed [facility] DTAP 2002-11-11 00:00:00 Completed [facility] HIB 4 Dose Schedule 2002-11-11 00:00:00 Completed [facility] Hep B, Adol or Pedi Dosage 2002-11-11 00:00:00 Completed [facility] MMR 2002-11-11 00:00:00 Completed [facility] Polio (IPV/OPV) 2002-11-11 00:00:00 Completed [facility] Varicella (varivax)(chicken pox) 2002-11-11 00:00:00 Completed [facility] DTAP 2002-11-11 00:00:00 Completed [facility] Hep B, Adol or Pedi Dosage 2002-11-11 00:00:00 Completed [facility] HIB 4 Dose Schedule 2002-11-11 00:00:00 Completed [facility] Polio (IPV/OPV) 2002-11-11 00:00:00 Completed [facility] MMR 2002-11-11 00:00:00 Completed [facility] Varicella (varivax)(chicken pox) 2002-11-11 00:00:00 Completed [facility] DTAP 2002-11-11 00:00:00 Completed [facility] HIB 4 Dose Schedule 2002-11-11 00:00:00 Completed [facility] Hep B, Adol or Pedi Dosage 2002-11-11 00:00:00 Completed [facility] MMR 2002-11-11 00:00:00 Completed [facility] Polio (IPV/OPV) 2002-11-11 00:00:00 Completed [facility] Varicella (varivax)(chicken pox) 2002-11-11 00:00:00 Completed [facility] DTAP 2002-11-11 00:00:00 Completed [facility] Hep B, Adol or Pedi Dosage 2002-11-11 00:00:00 Completed [facility] HIB 4 Dose Schedule 2002-11-11 00:00:00 Completed [facility] Polio (IPV/OPV) 2002-11-11 00:00:00 Completed [facility] MMR 2002-11-11 00:00:00 Completed [facility] Varicella (varivax)(chicken pox) 2002-11-11 00:00:00 Completed [facility] DTAP 2002-11-11 00:00:00 Completed [facility] HIB 4 Dose Schedule 2002-11-11 00:00:00 Completed [facility] Hep B, Adol or Pedi Dosage 2002-11-11 00:00:00 Completed [facility] MMR 2002-11-11 00:00:00 Completed [facility] Polio (IPV/OPV) 2002-11-11 00:00:00 Completed [facility] Varicella (varivax)(chicken pox) 2002-11-11 00:00:00 Completed [facility] DTAP 2002-11-11 00:00:00 Completed [facility] Hep B, Adol or Pedi Dosage 2002-11-11 00:00:00 Completed [facility] HIB 4 Dose Schedule 2002-11-11 00:00:00 Completed [facility] Polio (IPV/OPV) 2002-11-11 00:00:00 Completed [facility] MMR 2002-11-11 00:00:00 Completed [facility] Varicella (varivax)(chicken pox) 2002-11-11 00:00:00 Completed [facility] DTAP 2002-11-11 00:00:00 Completed [facility] HIB 4 Dose Schedule 2002-11-11 00:00:00 Completed [facility] Hep B, Adol or Pedi Dosage 2002-11-11 00:00:00 Completed [facility] MMR 2002-11-11 00:00:00 Completed [facility] Polio (IPV/OPV) 2002-11-11 00:00:00 Completed [facility] Varicella (varivax)(chicken pox) 2002-11-11 00:00:00 Completed [facility] DTAP 2002-11-11 00:00:00 Completed [facility] Hep B, Adol or Pedi Dosage 2002-11-11 00:00:00 Completed [facility] HIB 4 Dose Schedule 2002-11-11 00:00:00 Completed [facility] Polio (IPV/OPV) 2002-11-11 00:00:00 Completed [facility] MMR 2002-11-11 00:00:00 Completed [facility] Varicella (varivax)(chicken pox) 2002-11-11 00:00:00 Completed [facility] DTAP 2002-11-11 00:00:00 Completed [facility] DTAP 2002-11-11 00:00:00 Completed [facility] HIB 4 Dose Schedule 2002-11-11 00:00:00 Completed [facility] HIB 4 Dose Schedule 2002-11-11 00:00:00 Completed [facility] Hep B, Adol or Pedi Dosage 2002-11-11 00:00:00 Completed [facility] MMR 2002-11-11 00:00:00 Completed [facility] Polio (IPV/OPV) 2002-11-11 00:00:00 Completed [facility] Varicella (varivax)(chicken pox) 2002-11-11 00:00:00 Completed [facility] DTAP 2002-11-11 00:00:00 Completed [facility] Hep B, Adol or Pedi Dosage 2002-11-11 00:00:00 Completed [facility] HIB 4 Dose Schedule 2002-11-11 00:00:00 Completed [facility] Polio (IPV/OPV) 2002-11-11 00:00:00 Completed [facility] MMR 2002-11-11 00:00:00 Completed [facility] Hep B, Adol or Pedi Dosage 2002-11-11 00:00:00 Completed [facility] Varicella (varivax)(chicken pox) 2002-11-11 00:00:00 Completed [facility] MMR 2002-11-11 00:00:00 Completed [facility] DTAP 2002-11-11 00:00:00 Completed [facility] HIB 4 Dose Schedule 2002-11-11 00:00:00 Completed [facility] Hep B, Adol or Pedi Dosage 2002-11-11 00:00:00 Completed [facility] MMR 2002-11-11 00:00:00 Completed [facility] Polio (IPV/OPV) 2002-11-11 00:00:00 Completed [facility] Varicella (varivax)(chicken pox) 2002-11-11 00:00:00 Completed [facility] Polio (IPV/OPV) 2002-11-11 00:00:00 Completed [facility] DTAP 2002-11-11 00:00:00 Completed [facility] Hep B, Adol or Pedi Dosage 2002-11-11 00:00:00 Completed [facility] HIB 4 Dose Schedule 2002-11-11 00:00:00 Completed [facility] Polio (IPV/OPV) 2002-11-11 00:00:00 Completed [facility] MMR 2002-11-11 00:00:00 Completed [facility] Varicella (varivax)(chicken pox) 2002-11-11 00:00:00 Completed [facility] Varicella (varivax)(chicken pox) 2002-11-11 00:00:00 Completed [facility] DTAP 2002-11-11 00:00:00 Completed [facility] DTAP 2002-11-11 00:00:00 Completed [facility] HIB 4 Dose Schedule 2002-11-11 00:00:00 Completed [facility] Hep B, Adol or Pedi Dosage 2002-11-11 00:00:00 Completed [facility] MMR 2002-11-11 00:00:00 Completed [facility] Polio (IPV/OPV) 2002-11-11 00:00:00 Completed [facility] Varicella (varivax)(chicken pox) 2002-11-11 00:00:00 Completed [facility] DTAP 2002-11-11 00:00:00 Completed [facility] Hep B, Adol or Pedi Dosage 2002-11-11 00:00:00 Completed [facility] HIB 4 Dose Schedule 2002-11-11 00:00:00 Completed [facility] Hep B, Adol or Pedi Dosage 2002-11-11 00:00:00 Completed [facility] Polio (IPV/OPV) 2002-11-11 00:00:00 Completed [facility] MMR 2002-11-11 00:00:00 Completed [facility] Varicella (varivax)(chicken pox) 2002-11-11 00:00:00 Completed [facility] HIB 4 Dose Schedule 2002-11-11 00:00:00 Completed [facility] DTAP 2002-11-11 00:00:00 Completed [facility] HIB 4 Dose Schedule 2002-11-11 00:00:00 Completed [facility] Hep B, Adol or Pedi Dosage 2002-11-11 00:00:00 Completed [facility] MMR 2002-11-11 00:00:00 Completed [facility] Polio (IPV/OPV) 2002-11-11 00:00:00 Completed [facility] Varicella (varivax)(chicken pox) 2002-11-11 00:00:00 Completed [facility] Polio (IPV/OPV) 2002-11-11 00:00:00 Completed [facility] DTAP 2002-11-11 00:00:00 Completed [facility] Hep B, Adol or Pedi Dosage 2002-11-11 00:00:00 Completed [facility] HIB 4 Dose Schedule 2002-11-11 00:00:00 Completed [facility] Polio (IPV/OPV) 2002-11-11 00:00:00 Completed [facility] MMR 2002-11-11 00:00:00 Completed [facility] Varicella (varivax)(chicken pox) 2002-11-11 00:00:00 Completed [facility] MMR 2002-11-11 00:00:00 Completed [facility] Varicella (varivax)(chicken pox) 2002-11-11 00:00:00 Completed [facility] DTAP 2002-11-11 00:00:00 Completed [facility] HIB 4 Dose Schedule 2002-11-11 00:00:00 Completed [facility] Hep B, Adol or Pedi Dosage 2002-11-11 00:00:00 Completed [facility] MMR 2002-11-11 00:00:00 Completed [facility] Polio (IPV/OPV) 2002-11-11 00:00:00 Completed [facility] Varicella (varivax)(chicken pox) 2002-11-11 00:00:00 Completed [facility] DTAP 2002-11-11 00:00:00 Completed [facility] Hep B, Adol or Pedi Dosage 2002-11-11 00:00:00 Completed [facility] HIB 4 Dose Schedule 2002-11-11 00:00:00 Completed [facility] Polio (IPV/OPV) 2002-11-11 00:00:00 Completed [facility] MMR 2002-11-11 00:00:00 Completed [facility] Varicella (varivax)(chicken pox) 2002-11-11 00:00:00 Completed [facility] DTAP 2002-11-11 00:00:00 Completed [facility] HIB 4 Dose Schedule 2002-11-11 00:00:00 Completed [facility] Hep B, Adol or Pedi Dosage 2002-11-11 00:00:00 Completed [facility] MMR 2002-11-11 00:00:00 Completed [facility] Polio (IPV/OPV) 2002-11-11 00:00:00 Completed [facility] Varicella (varivax)(chicken pox) 2002-11-11 00:00:00 Completed [facility] DTAP 2002-11-11 00:00:00 Completed [facility] Hep B, Adol or Pedi Dosage 2002-11-11 00:00:00 Completed [facility] HIB 4 Dose Schedule 2002-11-11 00:00:00 Completed [facility] Polio (IPV/OPV) 2002-11-11 00:00:00 Completed [facility] MMR 2002-11-11 00:00:00 Completed [facility] Varicella (varivax)(chicken pox) 2002-11-11 00:00:00 Completed [facility] DTAP 2002-11-11 00:00:00 Completed [facility] HIB 4 Dose Schedule 2002-11-11 00:00:00 Completed [facility] Hep B, Adol or Pedi Dosage 2002-11-11 00:00:00 Completed [facility] MMR 2002-11-11 00:00:00 Completed [facility] Polio (IPV/OPV) 2002-11-11 00:00:00 Completed [facility] Varicella (varivax)(chicken pox) 2002-11-11 00:00:00 Completed [facility] DTAP 2002-11-11 00:00:00 Completed [facility] Hep B, Adol or Pedi Dosage 2002-11-11 00:00:00 Completed [facility] HIB 4 Dose Schedule 2002-11-11 00:00:00 Completed [facility] Polio (IPV/OPV) 2002-11-11 00:00:00 Completed [facility] MMR 2002-11-11 00:00:00 Completed [facility] Varicella (varivax)(chicken pox) 2002-11-11 00:00:00 Completed [facility] DTaP, Unspecified Formulation 2002-11-11 00:00:00 Completed [facility] IPV 2002-11-11 00:00:00 Completed [facility] DTAP 2002-11-11 00:00:00 Completed [facility] HIB 4 Dose Schedule 2002-11-11 00:00:00 Completed [facility] DTaP, Unspecified Formulation 2002-11-11 00:00:00 Completed [facility] IPV 2002-11-11 00:00:00 Completed [facility] Hep B, Adol or Pedi Dosage 2002-11-11 00:00:00 Completed [facility] MMR 2002-11-11 00:00:00 Completed [facility] Polio (IPV/OPV) 2002-11-11 00:00:00 Completed [facility] DTaP, Unspecified Formulation 2002-11-11 00:00:00 Completed [facility] Varicella (varivax)(chicken pox) 2002-11-11 00:00:00 Completed [facility] IPV 2002-11-11 00:00:00 Completed [facility] DTAP 2002-11-11 00:00:00 Completed [facility] Hep B, Adol or Pedi Dosage 2002-11-11 00:00:00 Completed [facility] DTaP, Unspecified Formulation 2002-11-11 00:00:00 Completed [facility] HIB 4 Dose Schedule 2002-11-11 00:00:00 Completed [facility] IPV 2002-11-11 00:00:00 Completed [facility] Polio (IPV/OPV) 2002-11-11 00:00:00 Completed [facility] MMR 2002-11-11 00:00:00 Completed [facility] DTaP, Unspecified Formulation 2002-11-11 00:00:00 Completed [facility] Varicella (varivax)(chicken pox) 2002-11-11 00:00:00 Completed [facility] IPV 2002-11-11 00:00:00 Completed [facility] DTaP, Unspecified Formulation 2002-11-11 00:00:00 Completed [facility] IPV 2002-11-11 00:00:00 Completed [facility] DTaP, Unspecified Formulation 2002-11-11 00:00:00 Completed [facility] IPV 2002-11-11 00:00:00 Completed [facility] DTAP 2002-11-11 00:00:00 Completed [facility] HIB 4 Dose Schedule 2002-11-11 00:00:00 Completed [facility] DTaP, Unspecified Formulation 2002-11-11 00:00:00 Completed [facility] Hep B, Adol or Pedi Dosage 2002-11-11 00:00:00 Completed [facility] IPV 2002-11-11 00:00:00 Completed [facility] MMR 2002-11-11 00:00:00 Completed [facility] Polio (IPV/OPV) 2002-11-11 00:00:00 Completed [facility] DTaP, Unspecified Formulation 2002-11-11 00:00:00 Completed [facility] Varicella (varivax)(chicken pox) 2002-11-11 00:00:00 Completed [facility] IPV 2002-11-11 00:00:00 Completed [facility] DTAP 2002-11-11 00:00:00 Completed [facility] Hep B, Adol or Pedi Dosage 2002-11-11 00:00:00 Completed [facility] DTaP, Unspecified Formulation 2002-11-11 00:00:00 Completed [facility] HIB 4 Dose Schedule 2002-11-11 00:00:00 Completed [facility] IPV 2002-11-11 00:00:00 Completed [facility] Polio (IPV/OPV) 2002-11-11 00:00:00 Completed [facility] MMR 2002-11-11 00:00:00 Completed [facility] Varicella (varivax)(chicken pox) 2002-11-11 00:00:00 Completed [facility] DTaP, Unspecified Formulation 2002-11-11 00:00:00 Completed [facility] IPV 2002-11-11 00:00:00 Completed [facility] DTaP, Unspecified Formulation 2002-11-11 00:00:00 Completed [facility] IPV 2002-11-11 00:00:00 Completed [facility] DTaP, Unspecified Formulation 2002-11-11 00:00:00 Completed [facility] DTAP 2002-11-11 00:00:00 Completed [facility] IPV 2002-11-11 00:00:00 Completed [facility] Poliovirus, Live, Oral, Trivalent 1999-05-14 00:00:00 Completed [facility] DTaP, Unspecified Formulation 1999-05-14 00:00:00 Completed [facility] HIB 4 Dose Schedule 1999-05-14 00:00:00 Completed [facility] Poliovirus, Live, Oral, Trivalent 1999-05-14 00:00:00 Completed [facility] DTaP, Unspecified Formulation 1999-05-14 00:00:00 Completed [facility] HIB 4 Dose Schedule 1999-05-14 00:00:00 Completed [facility] Poliovirus, Live, Oral, Trivalent 1999-05-14 00:00:00 Completed [facility] DTaP, Unspecified Formulation 1999-05-14 00:00:00 Completed [facility] HIB 4 Dose Schedule 1999-05-14 00:00:00 Completed [facility] Poliovirus, Live, Oral, Trivalent 1999-05-14 00:00:00 Completed [facility] DTaP, Unspecified Formulation 1999-05-14 00:00:00 Completed [facility] HIB 4 Dose Schedule 1999-05-14 00:00:00 Completed [facility] Poliovirus, Live, Oral, Trivalent 1999-05-14 00:00:00 Completed [facility] DTaP, Unspecified Formulation 1999-05-14 00:00:00 Completed [facility] HIB 4 Dose Schedule 1999-05-14 00:00:00 Completed [facility] Poliovirus, Live, Oral, Trivalent 1999-05-14 00:00:00 Completed [facility] DTaP, Unspecified Formulation 1999-05-14 00:00:00 Completed [facility] HIB 4 Dose Schedule 1999-05-14 00:00:00 Completed [facility] Poliovirus, Live, Oral, Trivalent 1999-05-14 00:00:00 Completed [facility] DTaP, Unspecified Formulation 1999-05-14 00:00:00 Completed [facility] HIB 4 Dose Schedule 1999-05-14 00:00:00 Completed [facility] Poliovirus, Live, Oral, Trivalent 1999-05-14 00:00:00 Completed [facility] DTaP, Unspecified Formulation 1999-05-14 00:00:00 Completed [facility] HIB 4 Dose Schedule 1999-05-14 00:00:00 Completed [facility] Poliovirus, Live, Oral, Trivalent 1999-05-14 00:00:00 Completed [facility] DTaP, Unspecified Formulation 1999-05-14 00:00:00 Completed [facility] HIB 4 Dose Schedule 1999-05-14 00:00:00 Completed [facility] Poliovirus, Live, Oral, Trivalent 1999-05-14 00:00:00 Completed [facility] DTaP, Unspecified Formulation 1999-05-14 00:00:00 Completed [facility] HIB 4 Dose Schedule 1999-05-14 00:00:00 Completed [facility] Poliovirus, Live, Oral, Trivalent 1999-05-14 00:00:00 Completed [facility] DTaP, Unspecified Formulation 1999-05-14 00:00:00 Completed [facility] HIB 4 Dose Schedule 1999-05-14 00:00:00 Completed [facility] Poliovirus, Live, Oral, Trivalent 1999-05-14 00:00:00 Completed [facility] DTaP, Unspecified Formulation 1999-05-14 00:00:00 Completed [facility] HIB 4 Dose Schedule 1999-05-14 00:00:00 Completed [facility] Poliovirus, Live, Oral, Trivalent 1999-05-14 00:00:00 Completed [facility] DTaP, Unspecified Formulation 1999-05-14 00:00:00 Completed [facility] HIB 4 Dose Schedule 1999-05-14 00:00:00 Completed [facility] Poliovirus, Live, Oral, Trivalent 1999-05-14 00:00:00 Completed [facility] DTaP, Unspecified Formulation 1999-05-14 00:00:00 Completed [facility] HIB 4 Dose Schedule 1999-05-14 00:00:00 Completed [facility] Poliovirus, Live, Oral, Trivalent 1999-05-14 00:00:00 Completed [facility] DTaP, Unspecified Formulation 1999-05-14 00:00:00 Completed [facility] HIB 4 Dose Schedule 1999-05-14 00:00:00 Completed [facility] Poliovirus, Live, Oral, Trivalent 1999-05-14 00:00:00 Completed [facility] DTaP, Unspecified Formulation 1999-05-14 00:00:00 Completed [facility] HIB 4 Dose Schedule 1999-05-14 00:00:00 Completed [facility] Poliovirus, Live, Oral, Trivalent 1999-05-14 00:00:00 Completed [facility] DTaP, Unspecified Formulation 1999-05-14 00:00:00 Completed [facility] HIB 4 Dose Schedule 1999-05-14 00:00:00 Completed [facility] Poliovirus, Live, Oral, Trivalent 1999-05-14 00:00:00 Completed [facility] DTaP, Unspecified Formulation 1999-05-14 00:00:00 Completed [facility] HIB 4 Dose Schedule 1999-05-14 00:00:00 Completed [facility] Poliovirus, Live, Oral, Trivalent 1999-05-14 00:00:00 Completed [facility] DTaP, Unspecified Formulation 1999-05-14 00:00:00 Completed [facility] HIB 4 Dose Schedule 1999-05-14 00:00:00 Completed [facility] Poliovirus, Live, Oral, Trivalent 1999-05-14 00:00:00 Completed [facility] DTaP, Unspecified Formulation 1999-05-14 00:00:00 Completed [facility] HIB 4 Dose Schedule 1999-05-14 00:00:00 Completed [facility] [facility] Poliovirus, Live, Oral, Trivalent 1999-05-14 00:00:00 Completed [facility] DTaP, Unspecified Formulation 1999-05-14 00:00:00 Completed [facility] HIB 4 Dose Schedule 1999-05-14 00:00:00 Completed [facility] Poliovirus, Live, Oral, Trivalent 1999-01-26 00:00:00 Completed [facility] DTaP, Unspecified Formulation 1999-01-26 00:00:00 Completed [facility] Hep B, Adol or Pedi Dosage 1999-01-26 00:00:00 Completed [facility] HIB 4 Dose Schedule 1999-01-26 00:00:00 Completed [facility] Poliovirus, Live, Oral, Trivalent 1999-01-26 00:00:00 Completed [facility] DTaP, Unspecified Formulation 1999-01-26 00:00:00 Completed [facility] Hep B, Adol or Pedi Dosage 1999-01-26 00:00:00 Completed [facility] HIB 4 Dose Schedule 1999-01-26 00:00:00 Completed [facility] Poliovirus, Live, Oral, Trivalent 1999-01-26 00:00:00 Completed [facility] DTaP, Unspecified Formulation 1999-01-26 00:00:00 Completed [facility] Hep B, Adol or Pedi Dosage 1999-01-26 00:00:00 Completed [facility] HIB 4 Dose Schedule 1999-01-26 00:00:00 Completed [facility] Poliovirus, Live, Oral, Trivalent 1999-01-26 00:00:00 Completed [facility] DTaP, Unspecified Formulation 1999-01-26 00:00:00 Completed [facility] Hep B, Adol or Pedi Dosage 1999-01-26 00:00:00 Completed [facility] HIB 4 Dose Schedule 1999-01-26 00:00:00 Completed [facility] Poliovirus, Live, Oral, Trivalent 1999-01-26 00:00:00 Completed [facility] DTaP, Unspecified Formulation 1999-01-26 00:00:00 Completed [facility] Hep B, Adol or Pedi Dosage 1999-01-26 00:00:00 Completed [facility] HIB 4 Dose Schedule 1999-01-26 00:00:00 Completed [facility] Poliovirus, Live, Oral, Trivalent 1999-01-26 00:00:00 Completed [facility] DTaP, Unspecified Formulation 1999-01-26 00:00:00 Completed [facility] Hep B, Adol or Pedi Dosage 1999-01-26 00:00:00 Completed [facility] HIB 4 Dose Schedule 1999-01-26 00:00:00 Completed [facility] Poliovirus, Live, Oral, Trivalent 1999-01-26 00:00:00 Completed [facility] DTaP, Unspecified Formulation 1999-01-26 00:00:00 Completed [facility] Hep B, Adol or Pedi Dosage 1999-01-26 00:00:00 Completed [facility] HIB 4 Dose Schedule 1999-01-26 00:00:00 Completed [facility] Poliovirus, Live, Oral, Trivalent 1999-01-26 00:00:00 Completed [facility] DTaP, Unspecified Formulation 1999-01-26 00:00:00 Completed [facility] Hep B, Adol or Pedi Dosage 1999-01-26 00:00:00 Completed [facility] HIB 4 Dose Schedule 1999-01-26 00:00:00 Completed [facility] Poliovirus, Live, Oral, Trivalent 1999-01-26 00:00:00 Completed [facility] DTaP, Unspecified Formulation 1999-01-26 00:00:00 Completed [facility] Hep B, Adol or Pedi Dosage 1999-01-26 00:00:00 Completed [facility] HIB 4 Dose Schedule 1999-01-26 00:00:00 Completed [facility] Poliovirus, Live, Oral, Trivalent 1999-01-26 00:00:00 Completed [facility] DTaP, Unspecified Formulation 1999-01-26 00:00:00 Completed [facility] Hep B, Adol or Pedi Dosage 1999-01-26 00:00:00 Completed [facility] HIB 4 Dose Schedule 1999-01-26 00:00:00 Completed [facility] Poliovirus, Live, Oral, Trivalent 1999-01-26 00:00:00 Completed [facility] DTaP, Unspecified Formulation 1999-01-26 00:00:00 Completed [facility] Hep B, Adol or Pedi Dosage 1999-01-26 00:00:00 Completed [facility] HIB 4 Dose Schedule 1999-01-26 00:00:00 Completed [facility] Poliovirus, Live, Oral, Trivalent 1999-01-26 00:00:00 Completed [facility] DTaP, Unspecified Formulation 1999-01-26 00:00:00 Completed [facility] Hep B, Adol or Pedi Dosage 1999-01-26 00:00:00 Completed [facility] HIB 4 Dose Schedule 1999-01-26 00:00:00 Completed [facility] Poliovirus, Live, Oral, Trivalent 1999-01-26 00:00:00 Completed [facility] DTaP, Unspecified Formulation 1999-01-26 00:00:00 Completed [facility] Hep B, Adol or Pedi Dosage 1999-01-26 00:00:00 Completed [facility] HIB 4 Dose Schedule 1999-01-26 00:00:00 Completed [facility] Poliovirus, Live, Oral, Trivalent 1999-01-26 00:00:00 Completed [facility] DTaP, Unspecified Formulation 1999-01-26 00:00:00 Completed [facility] Hep B, Adol or Pedi Dosage 1999-01-26 00:00:00 Completed [facility] HIB 4 Dose Schedule 1999-01-26 00:00:00 Completed [facility] Poliovirus, Live, Oral, Trivalent 1999-01-26 00:00:00 Completed [facility] DTaP, Unspecified Formulation 1999-01-26 00:00:00 Completed [facility] Hep B, Adol or Pedi Dosage 1999-01-26 00:00:00 Completed [facility] HIB 4 Dose Schedule 1999-01-26 00:00:00 Completed [facility] Poliovirus, Live, Oral, Trivalent 1999-01-26 00:00:00 Completed [facility] DTaP, Unspecified Formulation 1999-01-26 00:00:00 Completed [facility] Hep B, Adol or Pedi Dosage 1999-01-26 00:00:00 Completed [facility] HIB 4 Dose Schedule 1999-01-26 00:00:00 Completed [facility] Poliovirus, Live, Oral, Trivalent 1999-01-26 00:00:00 Completed [facility] DTaP, Unspecified Formulation 1999-01-26 00:00:00 Completed [facility] Hep B, Adol or Pedi Dosage 1999-01-26 00:00:00 Completed [facility] HIB 4 Dose Schedule 1999-01-26 00:00:00 Completed [facility] Poliovirus, Live, Oral, Trivalent 1999-01-26 00:00:00 Completed [facility] DTaP, Unspecified Formulation 1999-01-26 00:00:00 Completed [facility] Hep B, Adol or Pedi Dosage 1999-01-26 00:00:00 Completed [facility] HIB 4 Dose Schedule 1999-01-26 00:00:00 Completed [facility] Poliovirus, Live, Oral, Trivalent 1999-01-26 00:00:00 Completed [facility] DTaP, Unspecified Formulation 1999-01-26 00:00:00 Completed [facility] Hep B, Adol or Pedi Dosage 1999-01-26 00:00:00 Completed [facility] HIB 4 Dose Schedule 1999-01-26 00:00:00 Completed [facility] Poliovirus, Live, Oral, Trivalent 1999-01-26 00:00:00 Completed [facility] DTaP, Unspecified Formulation 1999-01-26 00:00:00 Completed [facility] Hep B, Adol or Pedi Dosage 1999-01-26 00:00:00 Completed [facility] HIB 4 Dose Schedule 1999-01-26 00:00:00 Completed [facility] Poliovirus, Live, Oral, Trivalent 1999-01-26 00:00:00 Completed [facility] DTaP, Unspecified Formulation 1999-01-26 00:00:00 Completed [facility] Hep B, Adol or Pedi Dosage 1999-01-26 00:00:00 Completed [facility] HIB 4 Dose Schedule 1999-01-26 00:00:00 Completed [facility] Hep B, Adol or Pedi Dosage 1998 00:00:00 Completed [facility] Hep B, Adol or Pedi Dosage 1998 00:00:00 Completed [facility] Hep B, Adol or Pedi Dosage 1998 00:00:00 Completed [facility] Hep B, Adol or Pedi Dosage 1998 00:00:00 Completed [facility] Hep B, Adol or Pedi Dosage 1998 00:00:00 Completed [facility] Hep B, Adol or Pedi Dosage 1998 00:00:00 Completed [facility] Hep B, Adol or Pedi Dosage 1998 00:00:00 Completed [facility] Hep B, Adol or Pedi Dosage 1998 00:00:00 Completed [facility] Hep B, Adol or Pedi Dosage 1998 00:00:00 Completed [facility] Hep B, Adol or Pedi Dosage 1998 00:00:00 Completed [facility] Hep B, Adol or Pedi Dosage 1998 00:00:00 Completed [facility] Hep B, Adol or Pedi Dosage 1998 00:00:00 Completed [facility] Hep B, Adol or Pedi Dosage 1998 00:00:00 Completed [facility] Hep B, Adol or Pedi Dosage 1998 00:00:00 Completed [facility] Hep B, Adol or Pedi Dosage 1998 00:00:00 Completed [facility] Hep B, Adol or Pedi Dosage 1998 00:00:00 Completed [facility] Hep B, Adol or Pedi Dosage 1998 00:00:00 Completed [facility] Hep B, Adol or Pedi Dosage 1998 00:00:00 Completed [facility] Hep B, Adol or Pedi Dosage 1998 00:00:00 Completed [facility] Hep B, Adol or Pedi Dosage 1998 00:00:00 Completed [facility] Hep B, Adol or Pedi Dosage 1998 00:00:00 Completed [facility] HPV Unknown Completed [facility] Meningococcal Polysaccharide (groups A, C, Y and W-135) conjugate vaccine (MCV4P) Unknown Completed [facility] TDAP (ADACEL) VACCINE Unknown Completed [facility] Influenza Virus Vaccine Quad .5 mL IM 6+ MO (FLUZONE/FLULAVAL/FL UARIX) Unknown Completed [facility] TDAP (ADACEL) VACCINE Unknown Completed [facility] TDAP (ADACEL) VACCINE Unknown Completed [facility] Influenza Virus Vaccine Quad .5 mL IM 6+ MO (FLUZONE/FLULAVAL/FL UARIX) Unknown Completed [facility] HPV Unknown Completed [facility] Meningococcal Polysaccharide (groups A, C, Y and W-135) conjugate vaccine (MCV4P) Unknown Completed [facility] Varicella (varivax)(chicken pox) Unknown Completed [facility] SARS-COV-2 COVID-19 VACCINE - (MODERNA) Unknown Completed [facility] SARS-COV-2 COVID-19 VACCINE - (MODERNA) Unknown Completed [facility] DTaP, Unspecified Formulation Unknown Completed [facility] DTaP, Unspecified Formulation Unknown Completed [facility] DTaP, Unspecified Formulation Unknown Completed [facility] DTaP, Unspecified Formulation Unknown Completed [facility] HEPATITIS A Unknown Completed [facility] Hep B, Adol or Pedi Dosage Unknown Completed [facility] Hep B, Adol or Pedi Dosage Unknown Completed [facility] HIB 4 Dose Schedule Unknown Completed [facility] HIB 4 Dose Schedule Unknown Completed [facility] MMR Unknown Completed [facility] IPV Unknown Completed [facility] IPV Unknown Completed [facility] Poliovirus, Live, Oral, Trivalent Unknown Completed [facility] Poliovirus, Live, Oral, Trivalent Unknown Completed [facility] Tetanus/Diptheria Unknown Completed [facility] HPV Unknown Completed [facility] Meningococcal Polysaccharide (groups A, C, Y and W-135) conjugate vaccine (MCV4P) Unknown Completed [facility] TDAP (ADACEL) VACCINE Unknown Completed [facility] Influenza Virus Vaccine Quad .5 mL IM 6+ MO (FLUZONE/FLULAVAL/FL UARIX) Unknown Completed [facility] TDAP (ADACEL) VACCINE Unknown Completed [facility] TDAP (ADACEL) VACCINE Unknown Completed [facility] Influenza Virus Vaccine Quad .5 mL IM 6+ MO (FLUZONE/FLULAVAL/FL UARIX) Unknown Completed [facility] HPV Unknown Completed [facility] Meningococcal Polysaccharide (groups A, C, Y and W-135) conjugate vaccine (MCV4P) Unknown Completed [facility] Varicella (varivax)(chicken pox) Unknown Completed [facility] SARS-COV-2 COVID-19 VACCINE - (MODERNA) Unknown Completed [facility] SARS-COV-2 COVID-19 VACCINE - (MODERNA) Unknown Completed [facility] DTaP, Unspecified Formulation Unknown Completed [facility] DTaP, Unspecified Formulation Unknown Completed [facility] DTaP, Unspecified Formulation Unknown Completed [facility] DTaP, Unspecified Formulation Unknown Completed [facility] HEPATITIS A Unknown Completed [facility] Hep B, Adol or Pedi Dosage Unknown Completed [facility] Hep B, Adol or Pedi Dosage Unknown Completed [facility] HIB 4 Dose Schedule Unknown Completed [facility] HIB 4 Dose Schedule Unknown Completed [facility] MMR Unknown Completed [facility] IPV Unknown Completed [facility] IPV Unknown Completed [facility] Poliovirus, Live, Oral, Trivalent Unknown Completed [facility] Poliovirus, Live, Oral, Trivalent Unknown Completed [facility] Tetanus/Diptheria Unknown Completed [facility] HPV Unknown Completed [facility] Meningococcal Polysaccharide (groups A, C, Y and W-135) conjugate vaccine (MCV4P) Unknown Completed [facility] TDAP (ADACEL) VACCINE Unknown Completed [facility] Influenza Virus Vaccine Quad .5 mL IM 6+ MO (FLUZONE/FLULAVAL/FL UARIX) Unknown Completed [facility] TDAP (ADACEL) VACCINE Unknown Completed [facility] TDAP (ADACEL) VACCINE Unknown Completed [facility] Influenza Virus Vaccine Quad .5 mL IM 6+ MO (FLUZONE/FLULAVAL/FL UARIX) Unknown Completed [facility] HPV Unknown Completed [facility] Meningococcal Polysaccharide (groups A, C, Y and W-135) conjugate vaccine (MCV4P) Unknown Completed [facility] Varicella (varivax)(chicken pox) Unknown Completed [facility] SARS-COV-2 COVID-19 VACCINE - (MODERNA) Unknown Completed [facility] SARS-COV-2 COVID-19 VACCINE - (MODERNA) Unknown Completed [facility] DTaP, Unspecified Formulation Unknown Completed [facility] DTaP, Unspecified Formulation Unknown Completed [facility] DTaP, Unspecified Formulation Unknown Completed [facility] DTaP, Unspecified Formulation Unknown Completed [facility] HEPATITIS A Unknown Completed [facility] Hep B, Adol or Pedi Dosage Unknown Completed [facility] Hep B, Adol or Pedi Dosage Unknown Completed [facility] HIB 4 Dose Schedule Unknown Completed [facility] HIB 4 Dose Schedule Unknown Completed [facility] MMR Unknown Completed [facility] IPV Unknown Completed [facility] IPV Unknown Completed [facility] Poliovirus, Live, Oral, Trivalent Unknown Completed [facility] Poliovirus, Live, Oral, Trivalent Unknown Completed [facility] Tetanus/Diptheria Unknown Completed [facility] HPV Unknown Completed [facility] Meningococcal Polysaccharide (groups A, C, Y and W-135) conjugate vaccine (MCV4P) Unknown Completed [facility] TDAP (ADACEL) VACCINE Unknown Completed [facility] Influenza Virus Vaccine Quad .5 mL IM 6+ MO (FLUZONE/FLULAVAL/FL UARIX) Unknown Completed [facility] TDAP (ADACEL) VACCINE Unknown Completed [facility] TDAP (ADACEL) VACCINE Unknown Completed [facility] Influenza Virus Vaccine Quad .5 mL IM 6+ MO (FLUZONE/FLULAVAL/FL UARIX) Unknown Completed [facility] HPV Unknown Completed [facility] Meningococcal Polysaccharide (groups A, C, Y and W-135) conjugate vaccine (MCV4P) Unknown Completed [facility] Varicella (varivax)(chicken pox) Unknown Completed [facility] SARS-COV-2 COVID-19 VACCINE - (MODERNA) Unknown Completed [facility] SARS-COV-2 COVID-19 VACCINE - (MODERNA) Unknown Completed [facility] DTaP, Unspecified Formulation Unknown Completed [facility] DTaP, Unspecified Formulation Unknown Completed [facility] DTaP, Unspecified Formulation Unknown Completed [facility] DTaP, Unspecified Formulation Unknown Completed [facility] HEPATITIS A Unknown Completed [facility] Hep B, Adol or Pedi Dosage Unknown Completed [facility] Hep B, Adol or Pedi Dosage Unknown Completed [facility] HIB 4 Dose Schedule Unknown Completed [facility] HIB 4 Dose Schedule Unknown Completed [facility] MMR Unknown Completed [facility] IPV Unknown Completed [facility] IPV Unknown Completed [facility] Poliovirus, Live, Oral, Trivalent Unknown Completed [facility] Poliovirus, Live, Oral, Trivalent Unknown Completed [facility] Tetanus/Diptheria [facility] Meningococcal Polysaccharide (groups A, C, Y and W-135) conjugate vaccine (MCV4P) Unknown Completed [facility] TDAP (ADACEL) VACCINE Unknown Completed [facility] Influenza Virus Vaccine Quad .5 mL IM 6+ MO (FLUZONE/FLULAVAL/FL UARIX) Unknown Completed [facility] TDAP (ADACEL) VACCINE Unknown Completed [facility] TDAP (ADACEL) VACCINE Unknown Completed [facility] Influenza Virus Vaccine Quad .5 mL IM 6+ MO (FLUZONE/FLULAVAL/FL UARIX) Unknown Completed [facility] HPV Unknown Completed [facility] Meningococcal Polysaccharide (groups A, C, Y and W-135) conjugate vaccine (MCV4P) Unknown Completed [facility] Varicella (varivax)(chicken pox) Unknown Completed [facility] SARS-COV-2 COVID-19 VACCINE - (MODERNA) Unknown Completed [facility] DTaP, Unspecified Formulation Unknown Completed [facility] DTaP, Unspecified Formulation Unknown Completed [facility] DTaP, Unspecified Formulation Unknown Completed [facility] DTaP, Unspecified Formulation Unknown Completed [facility] HEPATITIS A Unknown Completed [facility] Hep B, Adol or Pedi Dosage Unknown Completed [facility] Hep B, Adol or Pedi Dosage Unknown Completed [facility] HIB 4 Dose Schedule Unknown Completed [facility] HIB 4 Dose Schedule Unknown Completed [facility] MMR Unknown Completed [facility] IPV Unknown Completed [facility] IPV Unknown Completed [facility] Poliovirus, Live, Oral, Trivalent Unknown Completed [facility] Poliovirus, Live, Oral, Trivalent Unknown Completed [facility] Tetanus/Diptheria Unknown [facility] Com[facility] Meningococcal Polysaccharide (groups A, C, Y and W-135) conjugate vaccine (MCV4P) Unknown Completed [facility] TDAP (ADACEL) VACCINE Unknown Completed [facility] Influenza Virus Vaccine Quad .5 mL IM 6+ MO (FLUZONE/FLULAVAL/FL UARIX) Unknown Completed [facility] TDAP (ADACEL) VACCINE Unknown Completed [facility] TDAP (ADACEL) VACCINE Unknown Completed [facility] Influenza Virus Vaccine Quad .5 mL IM 6+ MO (FLUZONE/FLULAVAL/FL UARIX) Unknown Completed [facility] HPV Unknown Completed [facility] Meningococcal Polysaccharide (groups A, C, Y and W-135) conjugate vaccine (MCV4P) Unknown Completed [facility] Varicella (varivax)(chicken pox) Unknown Completed [facility] SARS-COV-2 COVID-19 VACCINE - (MODERNA) Unknown Completed [facility] SARS-COV-2 COVID-19 VACCINE - (MODERNA) Unknown Completed [facility] DTaP, Unspecified Formulation Unknown Completed [facility] DTaP, Unspecified Formulation Unknown Completed [facility] DTaP, Unspecified Formulation Unknown Completed [facility] DTaP, Unspecified Formulation Unknown Completed [facility] HEPATITIS A Unknown Completed [facility] Hep B, Adol or Pedi Dosage Unknown Completed [facility] Hep B, Adol or Pedi Dosage Unknown Completed [facility] HIB 4 Dose Schedule Unknown Completed [facility] [place] [facility] 4 Dose Schedule Unknown Completed [facility] MMR Unknown Completed [facility] IPV Unknown Completed [facility] IPV Unknown Completed [facility] Poliovirus, Live, Oral, Trivalent Unknown Completed [facility] Poliovirus, Live, Oral, Trivalent Unknown Completed [facility] Tetanus/Diptheria Unknown Completed [facility] HPV Unknown Completed [facility] Meningococcal Polysaccharide (groups A, C, Y and W-135) conjugate vaccine (MCV4P) Unknown Completed [facility] TDAP (ADACEL) VACCINE Unknown Completed [facility] [place] [facility] Influenza Virus Vaccine Quad .5 mL IM 6+ MO (FLUZONE/FLULAVAL/FL UARIX) Unknown Completed [facility] [place] [facility] TDAP (ADACEL) VACCINE Unknown Completed [facility] [place] [facility] TDAP (ADACEL) VACCINE Unknown Completed [facility] [place] Influenza Virus Vaccine Quad .5 mL IM 6+ MO (FLUZONE/FLULAVAL/FL UARIX) Unknown Completed [facility] [place] [facility] HPV Unknown Completed [facility] [place] Meningococcal Polysaccharide (groups A, C, Y and W-135) conjugate vaccine (MCV4P) Unknown Completed [facility] Varicella (varivax)(chicken pox) Unknown Completed [facility] SARS-COV-2 COVID-19 VACCINE - (MODERNA) Unknown Completed [facility] SARS-COV-2 COVID-19 VACCINE - (MODERNA) Unknown Completed [facility] DTaP, Unspecified Formulation Unknown Completed [facility] DTaP, Unspecified Formulation Unknown Completed [facility] [place] [facility] DTaP, Unspecified Formulation Unknown Completed [facility] DTaP, Unspecified Formulation Unknown Completed [facility] HEPATITIS A Unknown Completed [facility] Hep B, Adol or Pedi Dosage Unknown Completed [facility] [place] [facility] Hep B, Adol or Pedi Dosage Unknown Completed [facility] [place] HIB 4 Dose Schedule Unknown Completed [facility] [place] HIB 4 Dose Schedule Unknown Completed [facility] [place] [facility] MMR Unknown Completed [facility] [place] [facility] IPV Unknown Completed [facility] [place] [facility] IPV Unknown Completed [facility] Poliovirus, Live, Oral, Trivalent Unknown Completed [facility] Poliovirus, Live, Oral, Trivalent Unknown Completed [facility] Tetanus/Diptheria Unknown Completed [facility] HPV Unknown Completed [facility] [place] Meningococcal Polysaccharide (groups A, C, Y and W-135) conjugate vaccine (MCV4P) Unknown Completed [facility] TDAP (ADACEL) VACCINE Unknown Completed [facility] [place] Influenza Virus Vaccine Quad .5 mL IM 6+ MO (FLUZONE/FLULAVAL/FL UARIX) Unknown Completed [facility] [place] [facility] TDAP (ADACEL) VACCINE Unknown Completed [facility] [place] [facility] TDAP (ADACEL) VACCINE Unknown Completed [facility] [place] Influenza Virus Vaccine Quad .5 mL IM 6+ MO (FLUZONE/FLULAVAL/FL UARIX) Unknown Completed [facility] [place] [facility] HPV Unknown Completed [facility] [place] Meningococcal Polysaccharide (groups A, C, Y and W-135) conjugate vaccine (MCV4P) Unknown Completed [facility] Varicella (varivax)(chicken pox) Unknown Completed [facility] [place] [facility] SARS-COV-2 COVID-19 VACCINE - (MODERNA) Unknown Completed [facility] SARS-COV-2 COVID-19 VACCINE - (MODERNA) Unknown Completed [facility] DTaP, Unspecified Formulation Unknown Completed [facility] DTaP, Unspecified Formulation Unknown Completed [facility] [place] [facility] DTaP, Unspecified Formulation Unknown Completed [facility] [place] [facility] DTaP, Unspecified Formulation Unknown Completed [facility] [place] HEPATITIS A Unknown Completed [facility] Hep B, Adol or Pedi Dosage Unknown Completed [facility] [place] [facility] Hep B, Adol or Pedi Dosage Unknown Completed [facility] [place] HIB 4 Dose Schedule Unknown Completed [facility] [place] [facility] HIB 4 Dose Schedule Unknown Completed [facility] MMR Unknown Completed [facility] [place] [facility] IPV Unknown Completed [facility] IPV Unknown Completed [facility] Poliovirus, Live, Oral, Trivalent Unknown Completed [facility] Poliovirus, Live, Oral, Trivalent Unknown Completed [facility] Tetanus/Diptheria Unknown Completed [facility] HPV Unknown Completed [facility] [place] Meningococcal Polysaccharide (groups A, C, Y and W-135) conjugate vaccine (MCV4P) Unknown Completed [facility] TDAP (ADACEL) VACCINE Unknown Completed [facility] [place] Influenza Virus Vaccine Quad .5 mL IM 6+ MO (FLUZONE/FLULAVAL/FL UARIX) Unknown Completed [facility] [place] TDAP (ADACEL) VACCINE Unknown Completed [facility] [place] TDAP (ADACEL) VACCINE Unknown Completed [facility] [place] Influenza Virus Vaccine Quad .5 mL IM 6+ MO (FLUZONE/FLULAVAL/FL UARIX) Unknown Completed [facility] [place] HPV Unknown Completed [facility] [place] Meningococcal Polysaccharide (groups A, C, Y and W-135) conjugate vaccine (MCV4P) Unknown Completed [facility] Varicella (varivax)(chicken pox) Unknown Completed [facility] [place] SARS-COV-2 COVID-19 VACCINE - (MODERNA) Unknown Completed [facility] SARS-COV-2 COVID-19 VACCINE - (MODERNA) Unknown Completed [facility] DTaP, Unspecified Formulation Unknown Completed [facility] DTaP, Unspecified Formulation Unknown Completed [facility] [place] [facility] DTaP, Unspecified Formulation Unknown Completed [facility] [place] [facility] DTaP, Unspecified Formulation Unknown Completed [facility] [place] [facility] HEPATITIS A Unknown Completed [facility] Hep B, Adol or Pedi Dosage Unknown Completed [facility] [place] [facility] Hep B, Adol or Pedi Dosage Unknown Completed [facility] [place] HIB 4 Dose Schedule Unknown Completed [facility] [place] [facility] HIB 4 Dose Schedule Unknown Completed [facility] [place] [facility] MMR Unknown Completed [facility] IPV Unknown Completed [facility] [place] [facility] IPV Unknown Completed [facility] Poliovirus, Live, Oral, Trivalent Unknown Completed [facility] Poliovirus, Live, Oral, Trivalent Unknown Completed [facility] Tetanus/Diptheria [facility] [place] Influenza Virus Vaccine Quad IM, Preserv and ABX Free 6 MO-64 YRS (FLUCELVAX) Unknown Completed [facility] [place] HPV Unknown Completed [facility] [place] Meningococcal Polysaccharide (groups A, C, Y and W-135) conjugate vaccine (MCV4P) Unknown Completed [facility] TDAP (ADACEL) VACCINE Unknown Completed [facility] [place] Influenza Virus Vaccine Quad .5 mL IM 6+ MO (FLUZONE/FLULAVAL/FL UARIX) Unknown Completed [facility] [place] TDAP (ADACEL) VACCINE Unknown Completed [facility] [place] TDAP (ADACEL) VACCINE Unknown Completed [facility] [place] Influenza Virus Vaccine Quad .5 mL IM 6+ MO (FLUZONE/FLULAVAL/FL UARIX) Unknown Completed [facility] [place] HPV Unknown Completed [facility] [place] Meningococcal Polysaccharide (groups A, C, Y and W-135) conjugate vaccine (MCV4P) Unknown Completed [facility] Varicella (varivax)(chicken pox) Unknown Completed [facility] [place] [facility] SARS-COV-2 COVID-19 VACCINE - (MODERNA) Unknown Completed [facility] SARS-COV-2 COVID-19 VACCINE - (MODERNA) Unknown Completed [facility] DTaP, Unspecified Formulation Unknown Completed [facility] [place] DTaP, Unspecified Formulation Unknown Completed [facility] [place] DTaP, Unspecified Formulation Unknown Completed [facility] [place] [facility] DTaP, Unspecified Formulation Unknown Completed [facility] [place] HEPATITIS A Unknown Completed [facility] Hep B, Adol or Pedi Dosage Unknown Completed [facility] [place] [facility] Hep B, Adol or Pedi Dosage Unknown Completed [facility] [place] HIB 4 Dose Schedule Unknown Completed [facility] [place] HIB 4 Dose Schedule Unknown Completed [facility] [place] [facility] MMR Unknown Completed [facility] [place] [facility] IPV Unknown Completed [facility] [place] [facility] IPV Unknown Completed [facility] [place] [facility] Poliovirus, Live, Oral, Trivalent Unknown Completed [facility] Poliovirus, Live, Oral, Trivalent Unknown Completed [facility] Tetanus/Diptheria [facility] [place] Influenza Virus Vaccine Quad IM, Preserv and ABX Free 6 MO-64 YRS (FLUCELVAX) Unknown Completed [facility] [place] HPV Unknown Completed [facility] [place] Meningococcal Polysaccharide (groups A, C, Y and W-135) conjugate vaccine (MCV4P) Unknown Completed [facility] TDAP (ADACEL) VACCINE Unknown Completed [facility] [place] Influenza Virus Vaccine Quad .5 mL IM 6+ MO (FLUZONE/FLULAVAL/FL UARIX) Unknown Completed [facility] [place] TDAP (ADACEL) VACCINE Unknown Completed [facility] [place] TDAP (ADACEL) VACCINE Unknown Completed [facility] [place] Influenza Virus Vaccine Quad .5 mL IM 6+ MO (FLUZONE/FLULAVAL/FL UARIX) Unknown Completed [facility] [place] HPV Unknown Completed [facility] [place] Meningococcal Polysaccharide (groups A, C, Y and W-135) conjugate vaccine (MCV4P) Unknown Completed [facility] Varicella (varivax)(chicken pox) Unknown Completed [facility] [place] SARS-COV-2 COVID-19 VACCINE - (MODERNA) Unknown Completed [facility] SARS-COV-2 COVID-19 VACCINE - (MODERNA) Unknown Completed [facility] DTaP, Unspecified Formulation Unknown Completed [facility] [place] DTaP, Unspecified Formulation Unknown Completed [facility] [place] DTaP, Unspecified Formulation Unknown Completed [facility] [place] DTaP, Unspecified Formulation Unknown Completed [facility] [place] HEPATITIS A Unknown Completed [facility] Hep B, Adol or Pedi Dosage Unknown Completed [facility] [place] Hep B, Adol or Pedi Dosage Unknown Completed [facility] [place] HIB 4 Dose Schedule Unknown Completed [facility] [place] HIB 4 Dose Schedule Unknown Completed [facility] [place] MMR Unknown Completed [facility] [place] [facility] IPV Unknown Completed [facility] [place] [facility] IPV Unknown Completed [facility] [place] Poliovirus, Live, Oral, Trivalent Unknown Completed [facility] Poliovirus, Live, Oral, Trivalent Unknown Completed [facility] Tetanus/Diptheria Unknown Completed [facility] TDAP Unknown Completed [facility] [place] Influenza Virus Vaccine Quad IM, Preserv and ABX Free 6 MO-64 YRS (FLUCELVAX) Unknown Completed [facility] [place] HPV Unknown Completed [facility] [place] Meningococcal Polysaccharide (groups A, C, Y and W-135) conjugate vaccine (MCV4P) Unknown Completed [facility] TDAP (ADACEL) VACCINE Unknown Completed [facility] [place] Influenza Virus Vaccine Quad .5 mL IM 6+ MO (FLUZONE/FLULAVAL/FL UARIX) Unknown Completed [facility] [place] TDAP (ADACEL) VACCINE Unknown Completed [facility] [place] TDAP (ADACEL) VACCINE Unknown Completed [facility] [place] Influenza Virus Vaccine Quad .5 mL IM 6+ MO (FLUZONE/FLULAVAL/FL UARIX) Unknown Completed [facility] [place] HPV Unknown Completed [facility] [place] Meningococcal Polysaccharide (groups A, C, Y and W-135) conjugate vaccine (MCV4P) Unknown Completed [facility] Varicella (varivax)(chicken pox) Unknown Completed [facility] [place] SARS-COV-2 COVID-19 VACCINE - (MODERNA) Unknown Completed [facility] SARS-COV-2 COVID-19 VACCINE - (MODERNA) Unknown Completed [facility] DTaP, Unspecified Formulation Unknown Completed [facility] [place] [facility] DTaP, Unspecified Formulation Unknown Completed [facility] [place] DTaP, Unspecified Formulation Unknown Completed [facility] [place] DTaP, Unspecified Formulation Unknown Completed [facility] [place] HEPATITIS A Unknown Completed [facility] Hep B, Adol or Pedi Dosage Unknown Completed [facility] [place] Hep B, Adol or Pedi Dosage Unknown Completed [facility] [place] HIB 4 Dose Schedule Unknown Completed [facility] [place] HIB 4 Dose Schedule Unknown Completed [facility] [place] MMR Unknown Completed [facility] [place] [facility] IPV Unknown Completed [facility] [place] IPV Unknown Completed [facility] [place] [facility] Poliovirus, Live, Oral, Trivalent Unknown Completed [facility] Poliovirus, Live, Oral, Trivalent Unknown Completed [facility] Tetanus/Diptheria [facility] [place] Influenza Virus Vaccine Quad IM, Preserv and ABX Free 6 MO-64 YRS (FLUCELVAX) Unknown Completed [facility] [place] HPV Unknown Completed [facility] [place] Meningococcal Polysaccharide (groups A, C, Y and W-135) conjugate vaccine (MCV4P) Unknown Completed [facility] TDAP (ADACEL) VACCINE Unknown Completed [facility] [place] Influenza Virus Vaccine Quad .5 mL IM 6+ MO (FLUZONE/FLULAVAL/FL UARIX) Unknown Completed [facility] [place] TDAP (ADACEL) VACCINE Unknown Completed [facility] [place] TDAP (ADACEL) VACCINE Unknown Completed [facility] [place] Influenza Virus Vaccine Quad .5 mL IM 6+ MO (FLUZONE/FLULAVAL/FL UARIX) Unknown Completed [facility] [place] HPV Unknown Completed [facility] [place] Meningococcal Polysaccharide (groups A, C, Y and W-135) conjugate vaccine (MCV4P) Unknown Completed [facility] Varicella (varivax)(chicken pox) Unknown Completed [facility] [place] SARS-COV-2 COVID-19 VACCINE - (MODERNA) Unknown Completed [facility] SARS-COV-2 COVID-19 VACCINE - (MODERNA) Unknown Completed [facility] DTaP, Unspecified Formulation Unknown Completed [facility] [place] DTaP, Unspecified Formulation Unknown Completed [facility] [place] DTaP, Unspecified Formulation Unknown Completed [facility] [place] [facility] DTaP, Unspecified Formulation Unknown Completed [facility] [place] HEPATITIS A Unknown Completed [facility] Hep B, Adol or Pedi Dosage Unknown Completed [facility] [place] [facility] Hep B, Adol or Pedi Dosage Unknown Completed [facility] [place] HIB 4 Dose Schedule Unknown Completed [facility] [place] HIB 4 Dose Schedule Unknown Completed [facility] MMR Unknown Completed [facility] IPV Unknown Completed [facility] IPV Unknown Completed [facility] Poliovirus, Live, Oral, Trivalent Unknown Completed [facility] Poliovirus, Live, Oral, Trivalent Unknown Completed [facility] Tetanus/Diptheria [facility] [place] Influenza Virus Vaccine Quad IM, Preserv and ABX Free 6 MO-64 YRS (FLUCELVAX) Unknown Completed [facility] [place] HPV Unknown Completed [facility] [place] Meningococcal Polysaccharide (groups A, C, Y and W-135) conjugate vaccine (MCV4P) Unknown Completed [facility] TDAP (ADACEL) VACCINE Unknown Completed [facility] [place] Influenza Virus Vaccine Quad .5 mL IM 6+ MO (FLUZONE/FLULAVAL/FL UARIX) Unknown Completed [facility] [place] TDAP (ADACEL) VACCINE Unknown Completed [facility] [place] [facility] TDAP (ADACEL) VACCINE Unknown Completed [facility] [place] Influenza Virus Vaccine Quad .5 mL IM 6+ MO (FLUZONE/FLULAVAL/FL UARIX) Unknown Completed [facility] [place] HPV Unknown Completed [facility] [place] Meningococcal Polysaccharide (groups A, C, Y and W-135) conjugate vaccine (MCV4P) Unknown Completed [facility] Varicella (varivax)(chicken pox) Unknown Completed [facility] [place] SARS-COV-2 COVID-19 VACCINE - (MODERNA) Unknown Completed [facility] SARS-COV-2 COVID-19 VACCINE - (MODERNA) Unknown Completed [facility] DTaP, Unspecified Formulation Unknown Completed [facility] DTaP, Unspecified Formulation Unknown Completed [facility] [place] DTaP, Unspecified Formulation Unknown Completed [facility] DTaP, Unspecified Formulation Unknown Completed [facility] [place] HEPATITIS A Unknown Completed [facility] Hep B, Adol or Pedi Dosage Unknown Completed [facility] Hep B, Adol or Pedi Dosage Unknown Completed [facility] [place] HIB 4 Dose Schedule Unknown Completed [facility] [place] HIB 4 Dose Schedule Unknown Completed [facility] [place] [facility] MMR Unknown Completed [facility] IPV Unknown Completed [facility] IPV Unknown Completed [facility] [place] Poliovirus, Live, Oral, Trivalent Unknown Completed [facility] Poliovirus, Live, Oral, Trivalent Unknown Completed [facility] Tetanus/Diptheria Unknown Completed [facility] TDAP Unknown Completed [facility] [place] Influenza Virus Vaccine Quad IM, Preserv and ABX Free 6 MO-64 YRS (FLUCELVAX) Unknown Completed [facility] [place] HPV Unknown Completed [facility] [place] Meningococcal Polysaccharide (groups A, C, Y and W-135) conjugate vaccine (MCV4P) Unknown Completed [facility] TDAP (ADACEL) VACCINE Unknown Completed [facility] [place] Influenza Virus Vaccine Quad .5 mL IM 6+ MO (FLUZONE/FLULAVAL/FL UARIX) Unknown Completed [facility] [place] TDAP (ADACEL) VACCINE Unknown Completed [facility] [place] TDAP (ADACEL) VACCINE Unknown Completed [facility] [place] Influenza Virus Vaccine Quad .5 mL IM 6+ MO (FLUZONE/FLULAVAL/FL UARIX) Unknown Completed [facility] [place] HPV Unknown Completed [facility] [place] Meningococcal Polysaccharide (groups A, C, Y and W-135) conjugate vaccine (MCV4P) Unknown Completed [facility] Varicella (varivax)(chicken pox) Unknown Completed [facility] [place] SARS-COV-2 COVID-19 VACCINE - (MODERNA) Unknown Completed [facility] SARS-COV-2 COVID-19 VACCINE - (MODERNA) Unknown Completed [facility] DTaP, Unspecified Formulation Unknown Completed [facility] [place] DTaP, Unspecified Formulation Unknown Completed [facility] [place] DTaP, Unspecified Formulation Unknown Completed [facility] [place] DTaP, Unspecified Formulation Unknown Completed [facility] [place] HEPATITIS A Unknown Completed [facility] Hep B, Adol or Pedi Dosage Unknown Completed [facility] Hep B, Adol or Pedi Dosage Unknown Completed [facility] [place] HIB 4 Dose Schedule Unknown Completed [facility] [place] HIB 4 Dose Schedule Unknown Completed [facility] [place] MMR Unknown Completed [facility] IPV Unknown Completed [facility] IPV Unknown Completed [facility] Poliovirus, Live, Oral, Trivalent Unknown Completed [facility] Poliovirus, Live, Oral, Trivalent Unknown Completed [facility] Tetanus/Diptheria Unknown Completed [facility] TDAP Unknown Completed [facility] [place] Influenza Virus Vaccine Quad IM, Preserv and ABX Free 6 MO-64 YRS (FLUCELVAX) Unknown Completed [facility] [place] HPV Unknown Completed [facility] [place] Meningococcal Polysaccharide (groups A, C, Y and W-135) conjugate vaccine (MCV4P) Unknown Completed [facility] TDAP (ADACEL) VACCINE Unknown Completed [facility] [place] Influenza Virus Vaccine Quad .5 mL IM 6+ MO (FLUZONE/FLULAVAL/FL UARIX) Unknown Completed [facility] [place] TDAP (ADACEL) VACCINE Unknown Completed [facility] [place] TDAP (ADACEL) VACCINE Unknown Completed [facility] [place] Influenza Virus Vaccine Quad .5 mL IM 6+ MO (FLUZONE/FLULAVAL/FL UARIX) Unknown Completed [facility] [place] HPV Unknown Completed [facility] [place] Meningococcal Polysaccharide (groups A, C, Y and W-135) conjugate vaccine (MCV4P) Unknown Completed [facility] Varicella (varivax)(chicken pox) Unknown Completed [facility] [place] SARS-COV-2 COVID-19 VACCINE - (MODERNA) Unknown Completed [facility] SARS-COV-2 COVID-19 VACCINE - (MODERNA) Unknown Completed [facility] DTaP, Unspecified Formulation Unknown Completed [facility] DTaP, Unspecified Formulation Unknown Completed [facility] DTaP, Unspecified Formulation Unknown Completed [facility] DTaP, Unspecified Formulation Unknown Completed [facility] HEPATITIS A Unknown Completed [facility] Hep B, Adol or Pedi Dosage Unknown Completed [facility] Hep B, Adol or Pedi Dosage Unknown Completed [facility] HIB 4 Dose Schedule Unknown Completed [facility] HIB 4 Dose Schedule Unknown Completed [facility] MMR Unknown Completed [facility] IPV Unknown Completed [facility] IPV Unknown Completed [facility] Poliovirus, Live, Oral, Trivalent Unknown Completed [facility] Poliovirus, Live, Oral, Trivalent Unknown Completed [facility] Tetanus/Diptheria Unknown Completed [facility] TDAP Unknown Completed [facility] Influenza Virus Vaccine Quad IM, Preserv and ABX Free 6 MO-64 YRS (FLUCELVAX) Unknown Completed [facility] HPV Unknown Completed [facility] Meningococcal Polysaccharide (groups A, C, Y and W-135) conjugate vaccine (MCV4P) Unknown Completed [facility] TDAP (ADACEL) VACCINE Unknown Completed [facility] Influenza Virus Vaccine Quad .5 mL IM 6+ MO (FLUZONE/FLULAVAL/FL UARIX) Unknown Completed [facility] TDAP (ADACEL) VACCINE Unknown Completed [facility] TDAP (ADACEL) VACCINE Unknown Completed [facility] Influenza Virus Vaccine Quad .5 mL IM 6+ MO (FLUZONE/FLULAVAL/FL UARIX) Unknown Completed [facility] HPV Unknown Completed [facility] Meningococcal Polysaccharide (groups A, C, Y and W-135) conjugate vaccine (MCV4P) Unknown Completed [facility] Varicella (varivax)(chicken pox) Unknown Completed [facility] SARS-COV-2 COVID-19 VACCINE - (MODERNA) Unknown Completed [facility] SARS-COV-2 COVID-19 VACCINE - (MODERNA) Unknown Completed [facility] DTaP, Unspecified Formulation Unknown Completed [facility] DTaP, Unspecified Formulation Unknown Completed [facility] DTaP, Unspecified Formulation Unknown Completed [facility] DTaP, Unspecified Formulation Unknown Completed [facility] HEPATITIS A Unknown Completed [facility] Hep B, Adol or Pedi Dosage Unknown Completed [facility] Hep B, Adol or Pedi Dosage Unknown Completed [facility] HIB 4 Dose Schedule Unknown Completed [facility] HIB 4 Dose Schedule Unknown Completed [facility] MMR Unknown Completed [facility] IPV Unknown Completed [facility] IPV Unknown Completed [facility] Poliovirus, Live, Oral, Trivalent Unknown Completed [facility] Poliovirus, Live, Oral, Trivalent Unknown Completed [facility] Tetanus/Diptheria Unknown Completed [facility] TDAP Unknown Completed [facility] Influenza Virus Vaccine Quad IM, Preserv and ABX Free 6 MO-64 YRS (FLUCELVAX) Unknown Completed [facility] HPV Unknown Completed [facility] Meningococcal Polysaccharide (groups A, C, Y and W-135) conjugate vaccine (MCV4P) Unknown Completed [facility] TDAP (ADACEL) VACCINE Unknown Completed [facility] Influenza Virus Vaccine Quad .5 mL IM 6+ MO (FLUZONE/FLULAVAL/FL UARIX) Unknown Completed [facility] TDAP (ADACEL) VACCINE Unknown Completed [facility] TDAP (ADACEL) VACCINE Unknown Completed [facility] Influenza Virus Vaccine Quad .5 mL IM 6+ MO (FLUZONE/FLULAVAL/FL UARIX) Unknown Completed [facility] HPV Unknown Completed [facility] Meningococcal Polysaccharide (groups A, C, Y and W-135) conjugate vaccine (MCV4P) Unknown Completed [facility] Varicella (varivax)(chicken pox) Unknown Completed [facility] SARS-COV-2 COVID-19 VACCINE - (MODERNA) Unknown Completed [facility] SARS-COV-2 COVID-19 VACCINE - (MODERNA) Unknown Completed [facility] DTaP, Unspecified Formulation Unknown Completed [facility] DTaP, Unspecified Formulation Unknown Completed [facility] DTaP, Unspecified Formulation Unknown Completed [facility] DTaP, Unspecified Formulation Unknown Completed [facility] HEPATITIS A Unknown Completed [facility] Hep B, Adol or Pedi Dosage Unknown Completed [facility] Hep B, Adol or Pedi Dosage Unknown Completed [facility] HIB 4 Dose Schedule Unknown Completed [facility] HIB 4 Dose Schedule Unknown Completed [facility] MMR Unknown Completed [facility] IPV Unknown Completed [facility] IPV Unknown Completed [facility] Poliovirus, Live, Oral, Trivalent Unknown Completed [facility] Poliovirus, Live, Oral, Trivalent Unknown Completed [facility] Tetanus/Diptheria Unknown Completed [facility] TDAP Unknown Completed [facility] Influenza Virus Vaccine Quad IM, Preserv and ABX Free 6 MO-64 YRS (FLUCELVAX) Unknown Completed [facility] HPV Unknown Completed [facility] Meningococcal Polysaccharide (groups A, C, Y and W-135) conjugate vaccine (MCV4P) Unknown Completed [facility] TDAP (ADACEL) VACCINE Unknown Completed [facility] Influenza Virus Vaccine Quad .5 mL IM 6+ MO (FLUZONE/FLULAVAL/FL UARIX) Unknown Completed [facility] TDAP (ADACEL) VACCINE Unknown Completed [facility] TDAP (ADACEL) VACCINE Unknown Completed [facility] Influenza Virus Vaccine Quad .5 mL IM 6+ MO (FLUZONE/FLULAVAL/FL UARIX) Unknown Completed [facility] HPV Unknown Completed [facility] Meningococcal Polysaccharide (groups A, C, Y and W-135) conjugate vaccine (MCV4P) Unknown Completed [facility] Varicella (varivax)(chicken pox) Unknown Completed [facility] SARS-COV-2 COVID-19 VACCINE - (MODERNA) Unknown Completed [facility] SARS-COV-2 COVID-19 VACCINE - (MODERNA) Unknown Completed [facility] DTaP, Unspecified Formulation Unknown Completed [facility] DTaP, Unspecified Formulation Unknown Completed [facility] DTaP, Unspecified Formulation Unknown Completed [facility] DTaP, Unspecified Formulation Unknown Completed [facility] HEPATITIS A Unknown Completed [facility] Hep B, Adol or Pedi Dosage Unknown Completed [facility] Hep B, Adol or Pedi Dosage Unknown Completed [facility] HIB 4 Dose Schedule Unknown Completed [facility] HIB 4 Dose Schedule Unknown Completed [facility] MMR Unknown Completed [facility] IPV Unknown Completed [facility] IPV Unknown Completed [facility] Poliovirus, Live, Oral, Trivalent Unknown Completed [facility] Poliovirus, Live, Oral, Trivalent Unknown Completed [facility] Tetanus/Diptheria Unknown Completed [facility] TDAP Unknown Completed [facility] Influenza Virus Vaccine Quad IM, Preserv and ABX Free 6 MO-64 YRS (FLUCELVAX) Unknown Completed [facility] HPV Unknown Completed [facility] Meningococcal Polysaccharide (groups A, C, Y and W-135) conjugate vaccine (MCV4P) Unknown Completed [facility] TDAP (ADACEL) VACCINE Unknown Completed [facility] Influenza Virus Vaccine Quad .5 mL IM 6+ MO (FLUZONE/FLULAVAL/FL UARIX) Unknown Completed [facility] TDAP (ADACEL) VACCINE Unknown Completed [facility] TDAP (ADACEL) VACCINE Unknown Completed [facility] Influenza Virus Vaccine Quad .5 mL IM 6+ MO (FLUZONE/FLULAVAL/FL UARIX) Unknown Completed [facility] HPV Unknown Completed [facility] Meningococcal Polysaccharide (groups A, C, Y and W-135) conjugate vaccine (MCV4P) Unknown Completed [facility] Varicella (varivax)(chicken pox) Unknown Completed [facility] SARS-COV-2 COVID-19 VACCINE - (MODERNA) Unknown Completed [facility] SARS-COV-2 COVID-19 VACCINE - (MODERNA) Unknown Completed [facility] DTaP, Unspecified Formulation Unknown Completed [facility] DTaP, Unspecified Formulation Unknown Completed [facility] DTaP, Unspecified Formulation Unknown Completed [facility] DTaP, Unspecified Formulation Unknown Completed [facility] HEPATITIS A Unknown Completed [facility] Hep B, Adol or Pedi Dosage Unknown Completed [facility] Hep B, Adol or Pedi Dosage Unknown Completed [facility] HIB 4 Dose Schedule Unknown Completed [facility] HIB 4 Dose Schedule Unknown Completed [facility] MMR Unknown Completed [facility] IPV Unknown Completed [facility] IPV Unknown Completed [facility] Poliovirus, Live, Oral, Trivalent Unknown Completed [facility] Poliovirus, Live, Oral, Trivalent Unknown Completed [facility] Tetanus/Diptheria [facility] Influenza Virus Vaccine Quad IM, Preserv and ABX Free 6 MO-64 YRS (FLUCELVAX) Unknown Completed [facility] HPV Unknown Completed [facility] Meningococcal Polysaccharide (groups A, C, Y and W-135) conjugate vaccine (MCV4P) Unknown Completed [facility] TDAP (ADACEL) VACCINE Unknown Completed [facility] Influenza Virus Vaccine Quad .5 mL IM 6+ MO (FLUZONE/FLULAVAL/FL UARIX) Unknown Completed [facility] TDAP (ADACEL) VACCINE Unknown Completed [facility] TDAP (ADACEL) VACCINE Unknown Completed [facility] Influenza Virus Vaccine Quad .5 mL IM 6+ MO (FLUZONE/FLULAVAL/FL UARIX) Unknown Completed [facility] HPV Unknown Completed [facility] Meningococcal Polysaccharide (groups A, C, Y and W-135) conjugate vaccine (MCV4P) Unknown Completed [facility] Varicella (varivax)(chicken pox) Unknown Completed [facility] SARS-COV-2 COVID-19 VACCINE - (MODERNA) Unknown Completed [facility] SARS-COV-2 COVID-19 VACCINE - (MODERNA) Unknown Completed [facility] DTaP, Unspecified Formulation Unknown Completed [facility] DTaP, Unspecified Formulation Unknown Completed [facility] DTaP, Unspecified Formulation Unknown Completed [facility] DTaP, Unspecified Formulation Unknown Completed [facility] HEPATITIS A Unknown Completed [facility] Hep B, Adol or Pedi Dosage Unknown Completed [facility] Hep B, Adol or Pedi Dosage Unknown Completed [facility] HIB 4 Dose Schedule Unknown Completed [facility] HIB 4 Dose Schedule Unknown Completed [facility] MMR Unknown Completed [facility] IPV Unknown Completed [facility] IPV Unknown Completed [facility] Poliovirus, Live, Oral, Trivalent Unknown Completed [facility] Poliovirus, Live, Oral, Trivalent Unknown Completed [facility] Tetanus/Diptheria Unknown Completed Un [facility] TDAP Unknown Completed [facility] Influenza Virus Vaccine Quad IM, Preserv and ABX Free 6 MO-64 YRS (FLUCELVAX) Unknown Completed [facility] HPV Unknown Completed [facility] Meningococcal Polysaccharide (groups A, C, Y and W-135) conjugate vaccine (MCV4P) Unknown Completed [facility] TDAP (ADACEL) VACCINE Unknown Completed [facility] Influenza Virus Vaccine Quad .5 mL IM 6+ MO (FLUZONE/FLULAVAL/FL UARIX) Unknown Completed [facility] TDAP (ADACEL) VACCINE Unknown Completed [facility] TDAP (ADACEL) VACCINE Unknown Completed [facility] Influenza Virus Vaccine Quad .5 mL IM 6+ MO (FLUZONE/FLULAVAL/FL UARIX) Unknown Completed [facility] HPV Unknown Completed [facility] Meningococcal Polysaccharide (groups A, C, Y and W-135) conjugate vaccine (MCV4P) Unknown Completed [facility] Varicella (varivax)(chicken pox) Unknown Completed [facility] SARS-COV-2 COVID-19 VACCINE - (MODERNA) Unknown Completed [facility] SARS-COV-2 COVID-19 VACCINE - (MODERNA) Unknown Completed [facility] DTaP, Unspecified Formulation Unknown Completed [facility] DTaP, Unspecified Formulation Unknown Completed [facility] DTaP, Unspecified Formulation Unknown Completed [facility] DTaP, Unspecified Formulation Unknown Completed [facility] HEPATITIS A Unknown Completed [facility] Hep B, Adol or Pedi Dosage Unknown Completed [facility] Hep B, Adol or Pedi Dosage Unknown Completed [facility] HIB 4 Dose Schedule Unknown Completed [facility] HIB 4 Dose Schedule Unknown Completed [facility] MMR Unknown Completed [facility] IPV Unknown Completed [facility] IPV Unknown Completed [facility] Poliovirus, Live, Oral, Trivalent Unknown Completed [facility] Poliovirus, Live, Oral, Trivalent Unknown Completed [facility] Tetanus/Diptheria Unknown Completed [facility] TDAP Unknown Completed [facility] Influenza Virus Vaccine Quad IM, Preserv and ABX Free 6 MO-64 YRS (FLUCELVAX) Unknown Completed [facility] HPV Unknown Completed [facility] Meningococcal Polysaccharide (groups A, C, Y and W-135) conjugate vaccine (MCV4P) Unknown Completed [facility] TDAP (ADACEL) VACCINE Unknown Completed [facility] Influenza Virus Vaccine Quad .5 mL IM 6+ MO (FLUZONE/FLULAVAL/FL UARIX) Unknown Completed [facility] TDAP (ADACEL) VACCINE Unknown Completed [facility] TDAP (ADACEL) VACCINE Unknown Completed [facility] Influenza Virus Vaccine Quad .5 mL IM 6+ MO (FLUZONE/FLULAVAL/FL UARIX) Unknown Completed [facility] HPV Unknown Completed [facility] Meningococcal Polysaccharide (groups A, C, Y and W-135) conjugate vaccine (MCV4P) Unknown Completed [facility] Varicella (varivax)(chicken pox) Unknown Completed [facility] SARS-COV-2 COVID-19 VACCINE - (MODERNA) Unknown Completed [facility] SARS-COV-2 COVID-19 VACCINE - (MODERNA) Unknown Completed [facility] DTaP, Unspecified Formulation Unknown Completed [facility] DTaP, Unspecified Formulation Unknown Completed [facility] DTaP, Unspecified Formulation Unknown Completed [facility] DTaP, Unspecified Formulation Unknown Completed [facility] HEPATITIS A Unknown Completed [facility] Hep B, Adol or Pedi Dosage Unknown Completed [facility] Hep B, Adol or Pedi Dosage Unknown Completed [facility] HIB 4 Dose Schedule Unknown Completed [facility] HIB 4 Dose Schedule Unknown Completed [facility] MMR Unknown Completed [facility] IPV Unknown Completed [facility] IPV Unknown Completed [facility] Poliovirus, Live, Oral, Trivalent Unknown Completed [facility] Poliovirus, Live, Oral, Trivalent Unknown Completed [facility] Tetanus/Diptheria Unknown Completed [facility] TDAP Unknown Completed [facility] Influenza Virus Vaccine Quad IM, Preserv and ABX Free 6 MO-64 YRS (FLUCELVAX) Unknown Completed [facility] HPV Unknown Completed [facility] Meningococcal Polysaccharide (groups A, C, Y and W-135) conjugate vaccine (MCV4P) Unknown Completed [facility] TDAP (ADACEL) VACCINE Unknown Completed [facility] Influenza Virus Vaccine Quad .5 mL IM 6+ MO (FLUZONE/FLULAVAL/FL UARIX) Unknown Completed [facility] TDAP (ADACEL) VACCINE Unknown Completed [facility] TDAP (ADACEL) VACCINE Unknown Completed [facility] Influenza Virus Vaccine Quad .5 mL IM 6+ MO (FLUZONE/FLULAVAL/FL UARIX) Unknown Completed [facility] HPV Unknown Completed [facility] Meningococcal Polysaccharide (groups A, C, Y and W-135) conjugate vaccine (MCV4P) Unknown Completed [facility] Varicella (varivax)(chicken pox) Unknown Completed [facility] SARS-COV-2 COVID-19 VACCINE - (MODERNA) Unknown Completed [facility] SARS-COV-2 COVID-19 VACCINE - (MODERNA) Unknown Completed [facility] DTaP, Unspecified Formulation Unknown Completed [facility] DTaP, Unspecified Formulation Unknown Completed [facility] DTaP, Unspecified Formulation Unknown Completed [facility] DTaP, Unspecified Formulation Unknown Completed [facility] HEPATITIS A Unknown Completed [facility] Hep B, Adol or Pedi Dosage Unknown Completed [facility] Hep B, Adol or Pedi Dosage Unknown Completed [facility] HIB 4 Dose Schedule Unknown Completed [facility] HIB 4 Dose Schedule Unknown Completed [facility] MMR Unknown Completed [facility] IPV Unknown Completed [facility] IPV Unknown Completed [facility] Poliovirus, Live, Oral, Trivalent Unknown Completed [facility] Poliovirus, Live, Oral, Trivalent Unknown Completed [facility] Tetanus/Diptheria Unknown Completed [facility] TDAP Unknown Completed [facility] Influenza Virus Vaccine Quad IM, Preserv and ABX Free 6 MO-64 YRS (FLUCELVAX) Unknown Completed [facility] HPV Unknown Completed [facility] Meningococcal Polysaccharide (groups A, C, Y and W-135) conjugate vaccine (MCV4P) Unknown Completed [facility] TDAP (ADACEL) VACCINE Unknown Completed [facility] Influenza Virus Vaccine Quad .5 mL IM 6+ MO (FLUZONE/FLULAVAL/FL UARIX) Unknown Completed [facility] TDAP (ADACEL) VACCINE Unknown Completed [facility] TDAP (ADACEL) VACCINE Unknown Completed [facility] Influenza Virus Vaccine Quad .5 mL IM 6+ MO (FLUZONE/FLULAVAL/FL UARIX) Unknown Completed [facility] HPV Unknown Completed [facility] Meningococcal Polysaccharide (groups A, C, Y and W-135) conjugate vaccine (MCV4P) Unknown Completed [facility] Varicella (varivax)(chicken pox) Unknown Completed [facility] SARS-COV-2 COVID-19 VACCINE - (MODERNA) Unknown Completed [facility] SARS-COV-2 COVID-19 VACCINE - (MODERNA) Unknown Completed [facility] DTaP, Unspecified Formulation Unknown Completed [facility] DTaP, Unspecified Formulation Unknown Completed [facility] DTaP, Unspecified Formulation Unknown Completed [facility] DTaP, Unspecified Formulation Unknown Completed [facility] HEPATITIS A Unknown Completed [facility] Hep B, Adol or Pedi Dosage Unknown Completed [facility] Hep B, Adol or Pedi Dosage Unknown Completed [facility] HIB 4 Dose Schedule Unknown Completed [facility] HIB 4 Dose Schedule Unknown Completed [facility] MMR Unknown Completed [facility] IPV Unknown Completed [facility] IPV Unknown Completed [facility] Poliovirus, Live, Oral, Trivalent Unknown Completed [facility] Poliovirus, Live, Oral, Trivalent Unknown Completed [facility] Tetanus/Diptheria Unknown Completed [facility] TDAP Unknown Completed [facility] Influenza Virus Vaccine Quad IM, Preserv and ABX Free 6 MO-64 YRS (FLUCELVAX) Unknown Completed [facility] HPV Unknown Completed [facility] Meningococcal Polysaccharide (groups A, C, Y and W-135) conjugate vaccine (MCV4P) Unknown Completed [facility] TDAP (ADACEL) VACCINE Unknown Completed [facility] Influenza Virus Vaccine Quad .5 mL IM 6+ MO (FLUZONE/FLULAVAL/FL UARIX) Unknown Completed [facility] TDAP (ADACEL) VACCINE Unknown Completed [facility] TDAP (ADACEL) VACCINE Unknown Completed [facility] Influenza Virus Vaccine Quad .5 mL IM 6+ MO (FLUZONE/FLULAVAL/FL UARIX) Unknown Completed [facility] HPV Unknown Completed [facility] Meningococcal Polysaccharide (groups A, C, Y and W-135) conjugate vaccine (MCV4P) Unknown Completed [facility] Varicella (varivax)(chicken pox) Unknown Completed [facility] SARS-COV-2 COVID-19 VACCINE - (MODERNA) Unknown Completed [facility] SARS-COV-2 COVID-19 VACCINE - (MODERNA) Unknown Completed [facility] DTaP, Unspecified Formulation Unknown Completed [facility] DTaP, Unspecified Formulation Unknown Completed [facility] DTaP, Unspecified Formulation Unknown Completed [facility] DTaP, Unspecified Formulation Unknown Completed [facility] HEPATITIS A Unknown Completed [facility] Hep B, Adol or Pedi Dosage Unknown Completed [facility] Hep B, Adol or Pedi Dosage Unknown Completed [facility] HIB 4 Dose Schedule Unknown Completed [facility] HIB 4 Dose Schedule Unknown Completed [facility] MMR Unknown Completed [facility] IPV Unknown Completed [facility] IPV Unknown Completed [facility] Poliovirus, Live, Oral, Trivalent Unknown Completed [facility] Poliovirus, Live, Oral, Trivalent Unknown Completed [facility] Tetanus/Diptheria Unknown Completed [facility] TDAP Unknown Completed [facility] Influenza Virus Vaccine Quad IM, Preserv and ABX Free 6 MO-64 YRS (FLUCELVAX) Unknown Completed [facility] HPV Unknown Completed [facility] Meningococcal Polysaccharide (groups A, C, Y and W-135) conjugate vaccine (MCV4P) Unknown Completed [facility] TDAP (ADACEL) VACCINE Unknown Completed [facility] Influenza Virus Vaccine Quad .5 mL IM 6+ MO (FLUZONE/FLULAVAL/FL UARIX) Unknown Completed [facility] TDAP (ADACEL) VACCINE Unknown Completed [facility] TDAP (ADACEL) VACCINE Unknown Completed [facility] Influenza Virus Vaccine Quad .5 mL IM 6+ MO (FLUZONE/FLULAVAL/FL UARIX) Unknown Completed [facility] HPV Unknown Completed [facility] Meningococcal Polysaccharide (groups A, C, Y and W-135) conjugate vaccine (MCV4P) Unknown Completed [facility] Varicella (varivax)(chicken pox) Unknown Completed [facility] SARS-COV-2 COVID-19 VACCINE - (MODERNA) Unknown Completed [facility] SARS-COV-2 COVID-19 VACCINE - (MODERNA) Unknown Completed [facility] DTaP, Unspecified Formulation Unknown Completed [facility] DTaP, Unspecified Formulation Unknown Completed [facility] DTaP, Unspecified Formulation Unknown Completed [facility] DTaP, Unspecified Formulation Unknown Completed [facility] HEPATITIS A Unknown Completed [facility] Hep B, Adol or Pedi Dosage Unknown Completed [facility] Hep B, Adol or Pedi Dosage Unknown Completed [facility] HIB 4 Dose Schedule Unknown Completed [facility] HIB 4 Dose Schedule Unknown Completed [facility] MMR Unknown Completed [facility] IPV Unknown Completed [facility] IPV Unknown Completed [facility] Poliovirus, Live, Oral, Trivalent Unknown Completed [facility] Poliovirus, Live, Oral, Trivalent Unknown Completed [facility]ria [facility] Influenza Virus Vaccine Quad IM, Preserv and ABX Free 6 MO-64 YRS (FLUCELVAX) Unknown Completed [facility] HPV Unknown Completed [facility] Meningococcal Polysaccharide (groups A, C, Y and W-135) conjugate vaccine (MCV4P) Unknown Completed [facility] TDAP (ADACEL) VACCINE Unknown Completed [facility] Influenza Virus Vaccine Quad .5 mL IM 6+ MO (FLUZONE/FLULAVAL/FL UARIX) Unknown Completed [facility] TDAP (ADACEL) VACCINE Unknown Completed [facility] TDAP (ADACEL) VACCINE Unknown Completed [facility] Influenza Virus Vaccine Quad .5 mL IM 6+ MO (FLUZONE/FLULAVAL/FL UARIX) Unknown Completed [facility] HPV Unknown Completed [facility] Meningococcal Polysaccharide (groups A, C, Y and W-135) conjugate vaccine (MCV4P) Unknown Completed [facility] Varicella (varivax)(chicken pox) Unknown Completed [facility] SARS-COV-2 COVID-19 VACCINE - (MODERNA) Unknown Completed [facility] SARS-COV-2 COVID-19 VACCINE - (MODERNA) Unknown Completed [facility] DTaP, Unspecified Formulation Unknown Completed [facility] DTaP, Unspecified Formulation Unknown Completed [facility] DTaP, Unspecified Formulation Unknown Completed [facility] DTaP, Unspecified Formulation Unknown Completed [facility] HEPATITIS A Unknown Completed [facility] Hep B, Adol or Pedi Dosage Unknown Completed [facility] Hep B, Adol or Pedi Dosage Unknown Completed [facility] HIB 4 Dose Schedule Unknown Completed [facility] HIB 4 Dose Schedule Unknown Completed [facility] MMR Unknown Completed [facility] IPV Unknown Completed [facility] IPV Unknown Completed [facility] Poliovirus, Live, Oral, Trivalent Unknown Completed [facility] Poliovirus, Live, Oral, Trivalent Unknown Completed [facility] Tetanus/Diptheria [facility]pleted [facility] Influenza Virus Vaccine Quad IM, Preserv and ABX Free 6 MO-64 YRS (FLUCELVAX) Unknown Completed [facility] HPV Unknown Completed [facility] Meningococcal Polysaccharide (groups A, C, Y and W-135) conjugate vaccine (MCV4P) Unknown Completed [facility] TDAP (ADACEL) VACCINE Unknown Completed [facility] Influenza Virus Vaccine Quad .5 mL IM 6+ MO (FLUZONE/FLULAVAL/FL UARIX) Unknown Completed [facility] TDAP (ADACEL) VACCINE Unknown Completed [facility] TDAP (ADACEL) VACCINE Unknown Completed [facility] Influenza Virus Vaccine Quad .5 mL IM 6+ MO (FLUZONE/FLULAVAL/FL UARIX) Unknown Completed [facility] HPV Unknown Completed [facility] Meningococcal Polysaccharide (groups A, C, Y and W-135) conjugate vaccine (MCV4P) Unknown Completed [facility] Varicella (varivax)(chicken pox) Unknown Completed [facility] SARS-COV-2 COVID-19 VACCINE - (MODERNA) Unknown Completed [facility] SARS-COV-2 COVID-19 VACCINE - (MODERNA) Unknown Completed [facility] DTaP, Unspecified Formulation Unknown Completed [facility] DTaP, Unspecified Formulation Unknown Completed [facility] DTaP, Unspecified Formulation Unknown Completed [facility] DTaP, Unspecified Formulation Unknown Completed [facility] HEPATITIS A Unknown Completed [facility] Hep B, Adol or Pedi Dosage Unknown Completed [facility] Hep B, Adol or Pedi Dosage Unknown Completed [facility] HIB 4 Dose Schedule Unknown Completed [facility] HIB 4 Dose Schedule Unknown Completed [facility] MMR Unknown Completed [facility] IPV Unknown Completed [facility] IPV Unknown Completed [facility] Poliovirus, Live, Oral, Trivalent Unknown Completed [facility] Poliovirus, Live, Oral, Trivalent Unknown Completed [facility] Tetanus/Diptheria Unknown Completed [facility] TDAP Unknown Completed [facility] Influenza Virus Vaccine Quad IM, Preserv and ABX Free 6 MO-64 YRS (FLUCELVAX) Unknown Completed [facility] HPV Unknown Completed [facility] Meningococcal Polysaccharide (groups A, C, Y and W-135) conjugate vaccine (MCV4P) Unknown Completed [facility] TDAP (ADACEL) VACCINE Unknown Completed [facility] Influenza Virus Vaccine Quad .5 mL IM 6+ MO (FLUZONE/FLULAVAL/FL UARIX) Unknown Completed [facility] TDAP (ADACEL) VACCINE Unknown Completed [facility] TDAP (ADACEL) VACCINE Unknown Completed [facility] Influenza Virus Vaccine Quad .5 mL IM 6+ MO (FLUZONE/FLULAVAL/FL UARIX) Unknown Completed [facility] HPV Unknown Completed [facility] Meningococcal Polysaccharide (groups A, C, Y and W-135) conjugate vaccine (MCV4P) Unknown Completed [facility] Varicella (varivax)(chicken pox) Unknown Completed [facility] SARS-COV-2 COVID-19 VACCINE - (MODERNA) Unknown Completed [facility] SARS-COV-2 COVID-19 VACCINE - (MODERNA) Unknown Completed [facility] DTaP, Unspecified Formulation Unknown Completed [facility] DTaP, Unspecified Formulation Unknown Completed [facility] DTaP, Unspecified Formulation Unknown Completed [facility] DTaP, Unspecified Formulation Unknown Completed [facility] HEPATITIS A Unknown Completed [facility] Hep B, Adol or Pedi Dosage Unknown Completed [facility] Hep B, Adol or Pedi Dosage Unknown Completed [facility] HIB 4 Dose Schedule Unknown Completed [facility] HIB 4 Dose Schedule Unknown Completed [facility] MMR Unknown Completed [facility] IPV Unknown Completed [facility] IPV Unknown Completed [facility] Poliovirus, Live, Oral, Trivalent Unknown Completed [facility] Poliovirus, Live, Oral, Trivalent Unknown Completed [facility] Tetanus/Diptheria Unknown Completed [facility] TDAP Unknown Completed [facility] Influenza Virus Vaccine Quad IM, Preserv and ABX Free 6 MO-64 YRS (FLUCELVAX) Unknown Completed [facility] HPV Unknown Completed [facility] Meningococcal Polysaccharide (groups A, C, Y and W-135) conjugate vaccine (MCV4P) Unknown Completed [facility] TDAP (ADACEL) VACCINE Unknown Completed [facility] Influenza Virus Vaccine Quad .5 mL IM 6+ MO (FLUZONE/FLULAVAL/FL UARIX) Unknown Completed [facility] TDAP (ADACEL) VACCINE Unknown Completed [facility] TDAP (ADACEL) VACCINE Unknown Completed [facility] Influenza Virus Vaccine Quad .5 mL IM 6+ MO (FLUZONE/FLULAVAL/FL UARIX) Unknown Completed [facility] HPV Unknown Completed [facility] Meningococcal Polysaccharide (groups A, C, Y and W-135) conjugate vaccine (MCV4P) Unknown Completed [facility] Varicella (varivax)(chicken pox) Unknown Completed [facility] SARS-COV-2 COVID-19 VACCINE - (MODERNA) Unknown Completed [facility] SARS-COV-2 COVID-19 VACCINE - (MODERNA) Unknown Completed [facility] DTaP, Unspecified Formulation Unknown Completed [facility] DTaP, Unspecified Formulation Unknown Completed [facility] DTaP, Unspecified Formulation Unknown Completed [facility] DTaP, Unspecified Formulation Unknown Completed [facility] HEPATITIS A Unknown Completed [facility] Hep B, Adol or Pedi Dosage Unknown Completed [facility] Hep B, Adol or Pedi Dosage Unknown Completed [facility] HIB 4 Dose Schedule Unknown Completed [facility] HIB 4 Dose Schedule Unknown Completed [facility] MMR Unknown Completed [facility] IPV Unknown Completed [facility] IPV Unknown Completed [facility] Poliovirus, Live, Oral, Trivalent Unknown Completed [facility] Poliovirus, Live, Oral, Trivalent Unknown Completed [facility] Tetanus/Diptheria Unknown Completed [facility] TDAP Unknown Completed [facility] Influenza Virus Vaccine Quad IM, Preserv and ABX Free 6 MO-64 YRS (FLUCELVAX) Unknown Completed [facility] DTAP Unknown Completed [facility] HIB 4 Dose Schedule Unknown Completed [facility] Hep B, Adol or Pedi Dosage Unknown Completed [facility] MMR Unknown Completed [facility] Polio (IPV/OPV) Unknown Completed [facility] Varicella (varivax)(chicken pox) Unknown Completed [facility] DTAP Unknown Completed [facility] Hep B, Adol or Pedi Dosage Unknown Completed [facility] HIB 4 Dose Schedule Unknown Completed [facility] Polio (IPV/OPV) Unknown Completed [facility] MMR Unknown Completed [facility] Varicella (varivax)(chicken pox) Unknown Completed [facility] HPV Unknown Completed [facility] Meningococcal Polysaccharide (groups A, C, Y and W-135) conjugate vaccine (MCV4P) Unknown Completed [facility] TDAP (ADACEL) VACCINE Unknown Completed [facility] Influenza Virus Vaccine Quad .5 mL IM 6+ MO (FLUZONE/FLULAVAL/FL UARIX) Unknown Completed [facility] TDAP (ADACEL) VACCINE Unknown Completed [facility] TDAP (ADACEL) VACCINE Unknown Completed [facility] Influenza Virus Vaccine Quad .5 mL IM 6+ MO (FLUZONE/FLULAVAL/FL UARIX) Unknown Completed [facility] HPV Unknown Completed [facility] Meningococcal Polysaccharide (groups A, C, Y and W-135) conjugate vaccine (MCV4P) Unknown Completed [facility] Varicella (varivax)(chicken pox) Unknown Completed [facility] SARS-COV-2 COVID-19 VACCINE - (MODERNA) Unknown Completed [facility] SARS-COV-2 COVID-19 VACCINE - (MODERNA) Unknown Completed [facility] DTaP, Unspecified Formulation Unknown Completed [facility] DTaP, Unspecified Formulation Unknown Completed [facility] DTaP, Unspecified Formulation Unknown Completed [facility] DTaP, Unspecified Formulation Unknown Completed [facility] HEPATITIS A Unknown Completed [facility] Hep B, Adol or Pedi Dosage Unknown Completed [facility] Hep B, Adol or Pedi Dosage Unknown Completed [facility] HIB 4 Dose Schedule Unknown Completed [facility] HIB 4 Dose Schedule Unknown Completed [facility] MMR Unknown Completed [facility] IPV Unknown Completed [facility] IPV Unknown Completed [facility] Poliovirus, Live, Oral, Trivalent Unknown Completed [facility] Poliovirus, Live, Oral, Trivalent Unknown Completed [facility] Tetanus/Diptheria Unknown Completed [facility] TDAP Unknown Completed [facility] Influenza Virus Vaccine Quad IM, Preserv and ABX Free 6 MO-64 YRS (FLUCELVAX) Unknown Completed [facility] HPV Unknown Completed [facility] Meningococcal Polysaccharide (groups A, C, Y and W-135) conjugate vaccine (MCV4P) Unknown Completed [facility] TDAP (ADACEL) VACCINE Unknown Completed [facility] Influenza Virus Vaccine Quad .5 mL IM 6+ MO (FLUZONE/FLULAVAL/FL UARIX) Unknown Completed [facility] TDAP (ADACEL) VACCINE Unknown Completed [facility] TDAP (ADACEL) VACCINE Unknown Completed [facility] Influenza Virus Vaccine Quad .5 mL IM 6+ MO (FLUZONE/FLULAVAL/FL UARIX) Unknown Completed [facility] HPV Unknown Completed [facility] Meningococcal Polysaccharide (groups A, C, Y and W-135) conjugate vaccine (MCV4P) Unknown Completed [facility] Varicella (varivax)(chicken pox) Unknown Completed [facility] SARS-COV-2 COVID-19 VACCINE - (MODERNA) Unknown Completed [facility] SARS-COV-2 COVID-19 VACCINE - (MODERNA) Unknown Completed [facility] DTaP, Unspecified Formulation Unknown Completed [facility] DTaP, Unspecified Formulation Unknown Completed [facility] DTaP, Unspecified Formulation Unknown Completed [facility] DTaP, Unspecified Formulation Unknown Completed [facility] HEPATITIS A Unknown Completed [facility] Hep B, Adol or Pedi Dosage Unknown Completed [facility] Hep B, Adol or Pedi Dosage Unknown Completed [facility] HIB 4 Dose Schedule Unknown Completed [facility] HIB 4 Dose Schedule Unknown Completed [facility] MMR Unknown Completed [facility] IPV Unknown Completed [facility] IPV Unknown Completed [facility] Poliovirus, Live, Oral, Trivalent Unknown Completed [facility] Poliovirus, Live, Oral, Trivalent Unknown Completed [facility] Tetanus/Diptheria [facility] Influenza Virus Vaccine Quad IM, Preserv and ABX Free 6 MO-64 YRS (FLUCELVAX) Unknown Completed [facility] Vital Signs Vital Name Observation Time Observation Value Comments S ource Systolic blood pressure 2023-10-10 17:38:00 102 mm[Hg] [facility] Diastolic blood pressure 2023-10-10 17:38:00 78 mm[Hg] [facility] Heart rate 2023-10-10 17:38:00 84 /min [facility] Respiratory rate 2023-10-10 17:38:00 18 /min [facility] Body weight 2023-10-10 17:38:00 92.987 kg [facility] BMI 2023-10-10 17:38:00 34.11 kg/m2 [facility] Oxygen saturation in Arterial blood by Pulse oximetry 2023-10-10 17:38:00 99 /min [facility] Systolic blood pressure 2023-09-27 13:45:00 105 mm[Hg] [facility] Diastolic blood pressure 2023-09-27 13:45:00 52 mm[Hg] [facility] Heart rate 2023-09-27 13:45:00 63 /min [facility] Body temperature 2023-09-27 13:45:00 36.61 [place] [facility] Respiratory rate 2023-09-27 13:45:00 16 /min [facility] Oxygen saturation in Arterial blood by Pulse oximetry 2023-09-27 13:45:00 99 /min [facility] Body weight 2023-09-26 14:00:00 103 kg [facility] BMI 2023-09-26 14:00:00 37.79 kg/m2 [facility] Systolic blood pressure 2023-09-18 21:43:00 119 mm[Hg] [facility] Diastolic blood pressure 2023-09-18 21:43:00 75 mm[Hg] [facility] Heart rate 2023-09-18 21:43:00 86 /min [facility] Body temperature 2023-09-18 21:43:00 36.78 [place] [facility] Respiratory rate 2023-09-18 21:43:00 18 /min [facility] Body height 2023-09-18 21:43:00 165.1 cm [facility] Body weight 2023-09-18 21:43:00 102.241 kg [facility] BMI 2023-09-18 21:43:00 37.51 kg/m2 [facility] Oxygen saturation in Arterial blood by Pulse oximetry 2023-09-18 21:43:00 100 /min [facility] Systolic blood pressure 2023-09-16 09:30:00 118 mm[Hg] [facility] Diastolic blood pressure 2023-09-16 09:30:00 70 mm[Hg] [facility] Heart rate 2023-09-16 09:30:00 93 /min [facility] Body temperature 2023-09-16 09:30:00 36.83 [place] [facility] Oxygen saturation in Arterial blood by Pulse oximetry 2023-09-16 09:30:00 100 /min [facility] Respiratory rate 2023-09-16 07:45:00 17 /min [facility] Systolic blood pressure 2023-09-11 22:18:00 125 mm[Hg] [facility] Diastolic blood pressure 2023-09-11 22:18:00 73 mm[Hg] [facility] Heart rate 2023-09-11 22:18:00 86 /min [facility] Body temperature 2023-09-11 22:18:00 37.28 Roselia [facility] Respiratory rate 2023-09-11 22:18:00 16 /min [facility] Body weight 2023-09-11 22:18:00 98.612 kg [facility] BMI 2023-09-11 22:18:00 36.18 kg/m2 [facility] Oxygen saturation in Arterial blood by Pulse oximetry 2023-09-11 22:18:00 100 /min [facility] Systolic blood pressure 2023-09-08 03:30:00 125 mm[Hg] [facility] Diastolic blood pressure 2023-09-08 03:30:00 65 mm[Hg] [facility] Heart rate 2023-09-08 03:30:00 92 /min [facility] Oxygen saturation in Arterial blood by Pulse oximetry 2023-09-08 03:30:00 100 /min [facility] Body temperature 2023-09-08 02:40:00 36.61 Roselia [facility] Respiratory rate 2023-09-08 02:40:00 17 /min [facility] Systolic blood pressure 2023-09-03 22:00:00 112 mm[Hg] [facility] Diastolic blood pressure 2023-09-03 22:00:00 70 mm[Hg] [facility] Heart rate 2023-09-03 22:00:00 109 /min [facility] Oxygen saturation in Arterial blood by Pulse oximetry 2023-09-03 22:00:00 100 /min [facility] Body temperature 2023-09-03 21:37:00 36.78 Roselia [facility] Respiratory rate 2023-09-03 21:37:00 16 /min [facility] Body height 2023-09-03 21:13:00 165.1 cm [facility] Body weight 2023-09-03 21:13:00 96.798 kg [facility] BMI 2023-09-03 21:13:00 35.51 kg/m2 [facility] Systolic blood pressure 2023-09-02 20:21:00 113 mm[Hg] [facility] Diastolic blood pressure 2023-09-02 20:21:00 67 mm[Hg] [facility] Heart rate 2023-09-02 20:21:00 93 /min [facility] Body temperature 2023-09-02 20:21:00 36.83 Roselia [facility] Respiratory rate 2023-09-02 20:21:00 16 /min [facility] Body height 2023-09-02 20:21:00 165.1 cm [facility] Body weight 2023-09-02 20:21:00 95.255 kg [facility] BMI 2023-09-02 20:21:00 34.95 kg/m2 [facility] Oxygen saturation in Arterial blood by Pulse oximetry 2023-09-02 20:21:00 97 /min [facility] Systolic blood pressure 2023-08-28 17:08:00 108 mm[Hg] [facility] Diastolic blood pressure 2023-08-28 17:08:00 69 mm[Hg] [facility] Heart rate 2023-08-28 17:08:00 90 /min [facility] Body temperature 2023-08-28 17:08:00 36.5 Roselia [facility] Body height 2023-08-28 17:08:00 165.1 cm [facility] Body weight 2023-08-28 17:08:00 94.439 kg [facility] BMI 2023-08-28 17:08:00 34.65 kg/m2 [facility] Heart rate 2023-08-22 18:00:00 84 /min [facility] Oxygen saturation in Arterial blood by Pulse oximetry 2023-08-22 18:00:00 99 /min [facility] Systolic blood pressure 2023-08-22 17:00:00 123 mm[Hg] [facility] Diastolic blood pressure 2023-08-22 17:00:00 63 mm[Hg] [facility] Body temperature 2023-08-22 17:00:00 36.06 Roselia [facility] Respiratory rate 2023-08-22 17:00:00 16 /min [facility] Body weight 2023-08-20 21:50:00 99.542 kg [facility] BMI 2023-08-20 21:50:00 36.52 kg/m2 [facility] Body height 2023-08-20 21:01:00 165.1 cm [facility] Systolic blood pressure 2023-08-04 16:25:00 108 mm[Hg] [facility] Diastolic blood pressure 2023-08-04 16:25:00 64 mm[Hg] [facility] Heart rate 2023-08-04 16:25:00 87 /min [facility] Body temperature 2023-08-04 16:25:00 36.56 Roselia [facility] Respiratory rate 2023-08-04 16:25:00 18 /min [facility] Body height 2023-08-04 16:25:00 165.1 cm [facility] Body weight 2023-08-04 16:25:00 94.802 kg [facility] BMI 2023-08-04 16:25:00 34.78 kg/m2 [facility] Oxygen saturation in Arterial blood by Pulse oximetry 2023-08-04 16:25:00 99 /min [facility] Heart rate 2023-07-29 09:45:00 92 /min [facility] Oxygen saturation in Arterial blood by Pulse oximetry 2023-07-29 09:45:00 100 /min [facility] Body height 2023-07-29 09:38:00 165.1 cm [facility] Body weight 2023-07-29 09:38:00 97.614 kg [facility] BMI 2023-07-29 09:38:00 35.81 kg/m2 [facility] Systolic blood pressure 2023-07-29 09:30:00 119 mm[Hg] [facility] Diastolic blood pressure 2023-07-29 09:30:00 64 mm[Hg] [facility] Body temperature 2023-07-29 09:30:00 36.67 Roselia [facility] Heart rate 2023-06-14 20:00:00 63 /min [facility] Oxygen saturation in Arterial blood by Pulse oximetry 2023-06-14 20:00:00 100 /min [facility] Systolic blood pressure 2023-06-14 18:02:00 112 mm[Hg] [facility] Diastolic blood pressure 2023-06-14 18:02:00 58 mm[Hg] [facility] Body temperature 2023-06-14 18:02:00 36.89 Roselia [facility] Respiratory rate 2023-06-14 18:02:00 16 /min [facility] Body height 2023-06-14 17:49:00 165.1 cm [facility] Body weight 2023-06-14 17:49:00 93.35 kg [facility] BMI 2023-06-14 17:49:00 34.25 kg/m2 [facility] Systolic blood pressure 2023-05-03 22:46:00 117 mm[Hg] [facility] Diastolic blood pressure 2023-05-03 22:46:00 70 mm[Hg] [facility] Heart rate 2023-05-03 22:46:00 94 /min [facility] Body temperature 2023-05-03 22:46:00 36.67 Roselia [facility] Respiratory rate 2023-05-03 22:46:00 18 /min [facility] Oxygen saturation in Arterial blood by Pulse oximetry 2023-05-03 22:46:00 99 /min [facility] Heart rate 2023-04-18 21:00:00 77 /min [facility] Oxygen saturation in Arterial blood by Pulse oximetry 2023-04-18 21:00:00 100 /min [facility] Systolic blood pressure 2023-04-18 20:00:00 138 mm[Hg] [facility] Diastolic blood pressure 2023-04-18 20:00:00 75 mm[Hg] [facility] Body temperature 2023-04-18 17:42:00 37.33 Roselia [facility] Respiratory rate 2023-04-18 17:42:00 16 /min [facility] Body height 2023-04-18 17:42:00 165.1 cm [facility] Body weight 2023-04-18 17:42:00 92.987 kg [facility] BMI 2023-04-18 17:42:00 34.11 kg/m2 [facility] Systolic blood pressure 2023-04-02 13:43:00 122 mm[Hg] [facility] Diastolic blood pressure 2023-04-02 13:43:00 62 mm[Hg] [facility] Heart rate 2023-04-02 13:43:00 98 /min [facility] Body temperature 2023-04-02 13:43:00 36.61 Roselia [facility] Respiratory rate 2023-04-02 13:43:00 18 /min [facility] Body height 2023-04-02 13:43:00 165.1 cm [facility] Body weight 2023-04-02 13:43:00 94.575 kg [facility] BMI 2023-04-02 13:43:00 34.70 kg/m2 [facility] Systolic blood pressure 2023-03-11 18:08:00 119 mm[Hg] [facility] Diastolic blood pressure 2023-03-11 18:08:00 68 mm[Hg] [facility] Heart rate 2023-03-11 18:08:00 87 /min [facility] Body temperature 2023-03-11 18:08:00 36.78 Roselia [facility] Respiratory rate 2023-03-11 18:08:00 18 /min [facility] Body height 2023-03-11 18:08:00 165.1 cm [facility] Body weight 2023-03-11 18:08:00 93.044 kg [facility] BMI 2023-03-11 18:08:00 34.13 kg/m2 [facility] Systolic blood pressure 2023-02-11 18:05:00 112 mm[Hg] [facility] Diastolic blood pressure 2023-02-11 18:05:00 64 mm[Hg] [facility] Heart rate 2023-02-11 18:05:00 73 /min [facility] Body temperature 2023-02-11 18:05:00 36.78 Roselia [facility] Respiratory rate 2023-02-11 18:05:00 18 /min [facility] Body height 2023-02-11 18:05:00 165.1 cm [facility] Body weight 2023-02-11 18:05:00 88.508 kg [facility] BMI 2023-02-11 18:05:00 32.47 kg/m2 [facility] Systolic blood pressure 2022-01-17 03:00:00 119 mm[Hg] [facility] Diastolic blood pressure 2022-01-17 03:00:00 62 mm[Hg] [facility] Heart rate 2022-01-17 03:00:00 68 /min [facility] Respiratory rate 2022-01-17 03:00:00 16 /min [facility] Oxygen saturation in Arterial blood by Pulse oximetry 2022-01-17 03:00:00 100 /min [facility] Body temperature 2022-01-17 02:03:00 37.28 Roselia [facility] Body height 2022-01-17 02:03:00 165.1 cm [facility] Body weight 2022-01-17 02:03:00 90.719 kg [facility] BMI 2022-01-17 02:03:00 33.28 kg/m2 [facility] Systolic blood pressure 2019-05-27 20:39:00 107 mm[Hg] [facility] Diastolic blood pressure 2019-05-27 20:39:00 63 mm[Hg] [facility] Heart rate 2019-05-27 20:39:00 77 /min [facility] Body temperature 2019-05-27 20:39:00 36.94 Roselia [facility] Respiratory rate 2019-05-27 20:39:00 18 /min [facility] Body height 2019-05-27 20:39:00 165.1 cm [facility] Body weight 2019-05-27 20:39:00 98.431 kg [facility] BMI 2019-05-27 20:39:00 36.11 kg/m2 [facility] Systolic blood pressure 2019-05-27 20:39:00 107 mm[Hg] [facility] Diastolic blood pressure 2019-05-27 20:39:00 63 mm[Hg] [facility] Heart rate 2019-05-27 20:39:00 77 /min [facility] Body temperature 2019-05-27 20:39:00 36.94 Roselia [facility] Respiratory rate 2019-05-27 20:39:00 18 /min [facility] Body height 2019-05-27 20:39:00 165.1 cm [facility] Body weight 2019-05-27 20:39:00 98.431 kg [facility] BMI 2019-05-27 20:39:00 36.11 kg/m2 [facility] Systolic blood pressure 2019-05-17 21:39:00 114 mm[Hg] [facility] Diastolic blood pressure 2019-05-17 21:39:00 71 mm[Hg] [facility] Heart rate 2019-05-17 21:39:00 103 /min [facility] Body temperature 2019-05-17 21:39:00 37.11 Roselia [facility] Respiratory rate 2019-05-17 21:39:00 18 /min [facility] Body height 2019-05-17 21:39:00 165.1 cm [facility] Body weight 2019-05-17 21:39:00 100.154 kg [facility] BMI 2019-05-17 21:39:00 36.74 kg/m2 [facility] Systolic blood pressure 2019-05-17 21:39:00 114 mm[Hg] [facility] Diastolic blood pressure 2019-05-17 21:39:00 71 mm[Hg] [facility] Heart rate 2019-05-17 21:39:00 103 /min [facility] Body temperature 2019-05-17 21:39:00 37.11 Roselia [facility] Respiratory rate 2019-05-17 21:39:00 18 /min [facility] Body height 2019-05-17 21:39:00 165.1 cm [facility] Body weight 2019-05-17 21:39:00 100.154 kg [facility] BMI 2019-05-17 21:39:00 36.74 kg/m2 [facility] Systolic blood pressure 2019-05-04 18:09:00 135 mm[Hg] [facility] Diastolic blood pressure 2019-05-04 18:09:00 68 mm[Hg] [facility] Heart rate 2019-05-04 18:09:00 96 /min [facility] Body temperature 2019-05-04 18:09:00 36.78 Roselia [facility] Respiratory rate 2019-05-04 18:09:00 22 /min [facility] Oxygen saturation in Arterial blood by Pulse oximetry 2019-05-04 18:09:00 100 /min [facility] Systolic blood pressure 2019-04-29 21:00:00 127 mm[Hg] [facility] Diastolic blood pressure 2019-04-29 21:00:00 68 mm[Hg] [facility] Heart rate 2019-04-29 21:00:00 87 /min [facility] Body temperature 2019-04-29 21:00:00 36.39 Roselia [facility] Respiratory rate 2019-04-29 21:00:00 20 /min [facility] Body height 2019-04-29 21:00:00 165.1 cm [facility] Body weight 2019-04-29 21:00:00 98.431 kg [facility] BMI 2019-04-29 21:00:00 36.11 kg/m2 [facility] Procedures Procedure Date / Time Performed Performing Clinician Source CBC WITH DIFF 2023-09-27 00:33:00 Cruz [facility] CENTRAL NEURAXIAL BLOCK 2023-09-25 09:00:00 Xenia Venegas [facility] URINE DRUG (IMMUNOASSAY) - COMPREHENSIVE DRUG SCREEN 2023-09-25 08:17:00 Cruz [facility] CBC WITH DIFF 2023-09-25 08:05:00 Anthony [facility] HEPATITIS B SURFACE ANTIGEN 2023-09-25 08:05:00 Cruz [facility] HB ABO GROUPING 2023-09-25 08:05:00 Kory [facility] RHO (D) IMMUNE GLOBULIN 2023-09-25 08:05:00 Anthony [facility] ADC OR BRIDGER ONLY - RPR 2023-09-25 08:05:00 Cruz [facility] HIV 1/2 AG-AB WITH REFLEX 2023-09-25 08:05:00 Anthony [facility] URINE DRUG (IMMUNOASSAY) - COMPREHENSIVE DRUG SCREEN 2023-09-18 22:29:00 Anthony [facility] POCT URINALYSIS W/O SPECIFIC GRAVITY 2023-09-18 00:00:00 Anthony [facility] ASSIGNMENT OF BENEFITS 2023-09-16 10:25:05 Docto r Unassigned, [place] [facility] CONSENT/REFUSAL FOR DIAGNOSIS AND TREATMENT 2023-09-16 10:23:26 Doctor Unassigned, [place] [facility] CBC WITH DIFF 2023-09-16 09:30:00 Jordan Wilkinson [facility] COMP. METABOLIC PANEL (87985) 2023-09-16 08:49:00 Ariela Wilkinson [facility] >14 WEEKS US LIMITED 2023-09-11 22:52:27 Antohny Kory Vasquez [facility] POCT URINALYSIS W/O SPECIFIC GRAVITY 2023-09-11 00:00:00 Kory Cruz [facility] ADC ONLY - FERN TEST 2023-09-08 02:41:00 AdMary bartholomew [facility] POCT URINALYSIS W/O SPECIFIC GRAVITY 2023-08-28 00:00:00 Kory Cruz [facility] SECOND AND THIRD TRIMESTER ULTRASOUND 2023-08-22 19:52:00 Krystal Low [facility] POCT GLUCOSE (AUTOMATED) 2023-08-22 01:43:00 Eloy Chavez [facility] TRANSTHORACIC ECHO (TTE) COMPLETE 2023-08-21 14:54:52 Reynaldo [facility] HB ECG ROUTINE & RHYTHM STRIP 2023-08-21 14:04:01 Reynaldo [facility] THYROID STIMULATING HORMONE 2023-08-21 13:21:00 Mayra Welch [facility] BASIC METABOLIC PANEL (NA, K, CL, CO2, GLUCOSE, BUN, CREATININE, CA) 2023-08-21 13:21:00 Mayra Welch [facility] GLYCOSYLATED HEMOGLOBIN (A1C) 2023-08-21 13:21:00 Tito Pedersen [facility] RUBELLA SCREEN IGG 2023-08-21 13:21:00 Tito Pedersen [facility] VZV ANTIBODY SCREEN 2023-08-21 13:21:00 Tito Pedersen [facility] HEPATITIS B SURFACE ANTIGEN 2023-08-21 13:21:00 Tito Pedersen [facility] HB ABO GROUPING 2023-08-21 13:21:00 Tito Pedersen [facility] HIV 1/2 AG-AB WITH REFLEX 2023-08-21 13:21:00 Tito Pedersen [facility] SYPHILIS IGG/IGM 2023-08-21 13:21:00 Tito Pedersen [facility] PROTHROMBIN TIME / INR 2023-08-21 01:40:00 Kory Cruz am [facility] ACTIVATED PARTIAL THRMPLAS BLANCA 2023-08-21 01:40:00 AnthonyKory Pedro [facility] URINE CULTURE 2023-08-21 01:31:[address] [facility] URINALYSIS 2023-08-21 01:16:00 Kory Cruz [facility] ADC CLC OR LCC ONLY - WET PREP 2023-08-21 01:16:00 [facility]CC[facility] 2023-08-21 01:16:00 [facility]FF 2023-08-21 01:15:[address] [facility] URINE DRUG (IMMUNOASSAY) - COMPREHENSIVE DRUG SCREEN 2023-08-21 01:14:00 [facility] 2023-08-21 01:14:00 Anthony Kory Pedro [facility] GC & CHLAMYDIA AMPLIFIED ASSAY 2023-08-21 01:13:00 [facility] 2023-08-20 23:58:11 [facility] PELVIS > 14 WEEKS 2023-08-20 23:57:55 Cruz [facility] XR SHOULDER 2+ VW LEFT 2023-08-20 21:31:00 Selwyn Quintero [facility] HOSPITAL ADMISSION 2023-08-20 06:01:00 Doctor Un assigned, [place] [facility] TDAP VACCINE, >11 YRS, IM 2023-08-04 19:02:35 Anthony [facility] FLU VACC ([id number]), 6 MO-64 YRS, .5ML, IM, QUAD (FLUCELVAX) 2023-08-04 19:02:35 Anthony [facility] POCT URINALYSIS W/O SPECIFIC GRAVITY 2023-08-04 00:00:00 Anthony [facility] URINE DRUG (IMMUNOASSAY) - COMPREHENSIVE DRUG SCREEN 2023-07-29 09:49[facility]00 [facility] 2023-07-29 09:49:00 Ariela Wilkinson [facility] US PELVIS > 14 WEEKS 2023-06-14 20:12:00 Kory Cruz [facility] URINALYSIS 2023-06-14 18:55:00 Kory Cruz [facility] ADC ONLY - FERN TEST 2023-06-14 18:55:00 Kory Cruz [facility] ASSIGNMENT OF BENEFITS 2023-06-14 17:37:47 Docto r Unassigned, [place] [facility] CONSENT/REFUSAL FOR DIAGNOSIS AND TREATMENT 2023-06-14 17:36:34 Doctor Unassigned, [place] [facility] SECOND AND THIRD TRIMESTER ULTRASOUND 2023-05-28 21:05:00 Krystal Low [facility] SECOND AND THIRD TRIMESTER ULTRASOUND 2023-05-28 20:25:00 Krystal Low [facility] URINE DRUG (IMMUNOASSAY) - COMPREHENSIVE DRUG SCREEN 2023-04-18 18:48:00 Jaja Ariela [facility] ADC CLC OR LCC ONLY - WET PREP 2023-04-18 18:48:00 Jaja [facility] CONSENT/REFUSAL FOR DIAGNOSIS AND TREATMENT 2023-04-18 16:42:47 Doctor Unassigned, [place] [facility] POCT URINALYSIS 2023-04-02 13:44:00 Krystal Low [facility] EXTERNAL PROVIDER RECORDS 2023-03-21 05:01:00 Doctor Unassigned, [place] [facility] POCT URINALYSIS 2023-03-11 18:00:00 Krystal Low [facility] AUTHORIZATION FOR RELEASE OF PHI 2023-03-11 05:01:00 Doctor Unassigned, [place] [facility] POCT URINALYSIS W/O SPECIFIC GRAVITY 2023-02-11 18:03:00 Krystal Low [facility] POCT TEST 2023-02-11 18:02:00 Rhona Low [facility] REPORT OF 2023-02-11 05:01:00 Doctor Kiran harper, [place] [facility] LIPASE 2022-01-17 03:09:00 Yvonne Siddiqi [facility] COMP. METABOLIC PANEL ([id number]) 2022-01-17 03:09:00 Yvonne Siddiqi [facility] CBC WITH DIFF 2022-01-17 03:09:00 Yvonne Siddiqi [facility] POCT TEST 2022-01-17 02:14:00 Lakhwinder Weiner [facility] URINALYSIS 2022-01-17 02:10:00 Abraham Weiner [facility] NOTICE OF PRIVACY PRACTICES 2022-01-17 01:36:28 Doctor Unassigned, [place] [facility] CONSENT/REFUSAL FOR DIAGNOSIS AND TREATMENT 2022-01-17 01:36:18 Doctor Unassigned, [place] [facility] TDAP (ADACEL) IMMUNIZATION 2019-05-27 20:41:37 Josy Chaudhary [facility] US ABDOMEN LIMITED 2019-05-17 22:45:16 Josy Chaudhary [facility] ASSIGNMENT OF BENEFITS 2019-05-17 22:12:10 Docto r Unassigned, [place] [facility] URINALYSIS 2019-05-04 18:55:00 Kory Cruz [facility] ADC CLC OR LCC ONLY - WET PREP 2019-05-04 18:55:00 Kory Cruz [facility] ADC ONLY - FERN TEST 2019-05-04 18:54:00 Kory Cruz [facility] CONSENT/REFUSAL FOR DIAGNOSIS AND TREATMENT 2019-05-04 17:47:16 Doctor Unassigned, [place] [facility] Encounters Start Date/Time End Date/Time Encounter Type Admission Type Attending Clinicians Care Facility Care Department Encounter ID Source 2023-09-16 06:18:[address] [facility] [id number] [facility] 2023-07-29 06:14:[address] [facility] [id number] [facility] 2023-04-18 17:24:[address] [facility] [id number] [facility] 2022-08-02 05:16:57 Emergency [facility] [id number] [facility] ent 2021-07-08 14:21:14 Outpatient [facility] [id number] [facility] 2023-11-28 00:00:00 2023-11-28 00:00:00 Patient Secure Msg Doctor Unassigned, [place] [facility] 1..840.114 [id number] 134 [id number] [facility] 2023-11-21 00:00:00 2023-11-21 00:00:00 Telephone Kory Cruz [facility] 1..840.114 [id number] [id number] [id number] 134 [id number] [facility] 2023-11-15 00:00:00 2023-11-15 00:00:00 Telephone Kory Cruz [facility] 1..840.114 350.1.13.10 [id number] [id number] 134 [id number] [facility] 2023-10-10 10:30:00 2023-10-10 12:02:47 Outpatient R KORY CRUZ [facility] [id number] [facility] 2023-10-10 10:30:00 2023-10-10 12:02:47 Routine Visit Kory Cruz [facility] 1..840.114 350.1.13.10 [id number] 134 [id number] [facility] 2023-10-10 00:00:00 2023-10-10 00:00:00 Patient Secure Msg Doctor Unassigned, [place] [facility] [id number] [id number] [id number] 134 [id number] [facility] 2023-10-09 00:00:00 2023-10-09 00:00:00 Telephone Kory Cruz [facility] 1..840.114 350.1.13.10 [id number] [id number] 134 [id number] [facility] 2023-10-09 00:00:00 2023-10-09 00:00:00 Patient Secure Msg Doctor Unassigned, [place] [facility] 1..840.114 350.1.13.10 4.2.7.2.686 [id number] 134 [id number] [facility] 2023-09-25 01:05:00 2023-09-27 12:55:00 Inpatient X KORY CRUZ [facility] [id number] [facility] 2023-09-25 01:05:00 2023-09-27 12:55:00 Hospital Encounter Kory Cruz [facility] 1..840.114 350.1.13.10 4.2.7.2.686 [id number] [facility] 2023-09-25 16:00:00 2023-09-25 16:00:00 Outpatient R KORY CRUZ [facility] [id number] [facility] 2023-09-25 03:00:00 2023-09-25 08:52:00 Anesthesia Event Xenia Angel Michelle [facility] 1..840.114 350.1.13.10 4.2.7.2.686 [id number] [id number] [facility] 2023-09-24 00:00:00 2023-09-24 00:00:00 Telephone Kory Cruz [facility] 1..840.114 350.1.13.10 4.2.7.2.686 [id number] [facility] 2023-09-19 00:10:00 2023-09-19 00:10:00 Outpatient P CANO-EVER S, ARIELA CANO-EVER S, ARIELA [facility] [id number] [facility] 2023-09-18 15:15:00 2023-09-18 16:21:53 Outpatient R KORY CRUZ [facility] [id number] [facility] 2023-09-18 15:15:00 2023-09-18 16:21:53 Routine Visit Kory Cruz [facility] 1..840.114 350.1.13.10 4.2.7.2.686 [id number] [facility] 2023-09-16 01:28:00 2023-09-16 03:45:00 Outpatient X CANO-EVER S, ARIELA CANO-EVER S, ARIELA [facility] [id number] [facility] 2023-09-16 01:28:00 2023-09-16 03:45:00 Emergency Cano-Ever s, Ariela [facility] 1..840.114 350.1.13.10 4.2.7.2.686 [id number] [facility] 2023-09-11 16:15:00 2023-09-11 16:50:18 Outpatient R KORY CRUZ [facility] [id number] [facility] 2023-09-11 16:15:00 2023-09-11 16:50:18 Routine Visit Kory Cruz [facility] 1.2.840.114 350.1.13.10 4.2.7.2.686 [id number] [facility] 2023-09-11 14:45:00 2023-09-11 15:00:00 Service Desk Agent Visit 2, Adc Lab Kory Cruz [facility] 1.2.840.114 350.1.13.10 4.2.7.2.686 [id number] [facility] 2023-09-11 11:00:00 2023-09-11 11:00:00 Outpatient R KORY CRUZ [facility] [id number] [facility] 2023-09-09 16:00:00 2023-09-09 16:00:00 Outpatient R KORY CRUZ [facility] [id number] [facility] 2023-09-08 00:00:00 2023-09-08 00:00:00 Telephone Kory Cruz [facility] 1.2.840.114 350.1.13.10 4.2.7.2.686 [id number] [facility] 2023-09-07 20:22:00 2023-09-07 22:06:00 Outpatient X MARY AVINA [facility] [id number] [facility] 2023-09-07 20:22:00 2023-09-07 22:06:00 Emergency Mary Avina [facility] 1.2.840.114 350.1.13.10 4.2.7.2.686 [id number] [facility] 2023-09-03 15:18:00 2023-09-03 17:33:00 Outpatient X KORY CRUZ [facility] [id number] [facility] 2023-09-03 15:18:00 2023-09-03 17:33:00 Emergency Kory Cruz [facility] 1.2.840.114 350.1.13.10 4.2.7.2.686 [id number] [id number] [facility] 2023-09-02 14:23:00 2023-09-02 15:18:00 Outpatient P MARY AVINA [facility] [id number] [facility] 2023-09-02 14:23:00 2023-09-02 15:18:00 Hospital Encounter Mary Avina [facility] 1.0.114 350.1.13.10 4.2.7.2.686 [id number] [facility] 2023-08-28 10:45:00 2023-08-28 11:28:38 Outpatient R ANTHONY KORY [facility] [id number] [facility] 2023-08-28 10:45:00 2023-08-28 11:28:38 Routine [facility] 1..114 350.1.13.10 4.2.7.2.686 [id number] [facility] 2023-08-20 15:22:00 2023-08-22 16:30:00 Outpatient X ELOY CHAVEZ [facility] [id number] [facility] 2023-08-20 15:22:00 2023-08-22 16:30:00 Emergency QuinteroNacho Vien Cam Omere, Chasey Ikuvbogie Pacheco, Luis Diego [facility] 1..114 350.1.13.10 4.2.7.2.686 [id number] [facility] 2023-08-22 13:00:00 2023-08-22 13:54:45 Service Desk Agent Visit 2, [facility] Kristal Alfredo Shannon [facility] 1..114 350.1.13.10 4.2.7.2.686 [id number] [facility] 2023-08-21 20:00:01 2023-08-21 20:00:01 Anesthesia Event Xenia Angel [facility] 1.84.114 350.1.13.10 4.2.7.2.686 [id number] [facility] 2023-08-18 14:15:00 2023-08-18 14:15:00 Outpatient R KORY CRUZ [facility] [id number] [facility] 2023-08-08 13:45:00 2023-08-08 13:45:00 Outpatient R [facility] [id number] [facility] 2023-08-06 00:00:00 2023-08-06 00:00:00 Patient Secure Msg Doctor Unassigned, [place] [facility] 1.114 350.1.13.10 4.2.7.2.686 [id number] [facility] 2023-08-04 10:00:00 2023-08-04 11:00:40 Outpatient R ATNHONY KOYR [facility] [id number] [facility] 2023-08-04 10:00:00 2023-08-04 11:00:40 Initial Visit [facility] 1.84.114 350.1.13.10 4.2.7.2.686 [id number] [facility] 2023-07-29 03:10:00 2023-07-29 06:05:00 Outpatient X CANO-EVER S, ARIELA CANO-VEER S, ARIELA [facility] [id number] [facility] 2023-07-29 03:10:00 2023-07-29 06:05:00 Emergency Cano-Ever s, Ariela [facility] 1.284.114 350.1.13.10 4.2.7.2.686 [id number] [id number] [facility] 2023-07-27 00:00:00 2023-07-27 00:00:00 Nurse Triage NurseSuyapa [facility] 1.2.840.114 350.1.13.10 4.2.7.2.686 [id number] [facility] 2023-06-21 00:00:00 2023-06-21 00:00:[address] [facility] INSOLE PRESSER [facility] MATERNAL & CHILD [facility] 1.2.840.114 350.1.13.10 4.2.7.2.686 [id number] [facility] 2023-06-14 12:51:00 2023-06-14 15:30:00 Outpatient X KORY CRUZ [facility] [id number] [facility] 2023-06-14 12:51:00 2023-06-14 15:30:00 Emergency Kory Cruz [facility] 1.2.840.114 350.1.13.10 4.2.7.2.686 [id number] [id number] [facility] 2023-06-14 00:00:00 2023-06-14 00:00:00 Nurse Triage Heidi Christinason [facility] 1.2.840.114 350.1.13.10 4.2.7.2.686 [id number] [facility] 2023-06-14 00:00:00 2023-06-14 00:00:00 Orders Only Doctor Unassigned, [place] [facility] 1.2.840.114 350.1.13.10 4.2.7.2.686 [id number] [facility] 2023-06-03 00:00:00 2023-06-03 00:00:00 Telephone Huy Mendoza [facility] INSOLE PRESSER [facility] MATERNAL & CHILD [facility] 1.2.840.114 350.1.13.10 4.2.7.2.686 [id number] [facility] 2023-06-02 15:30:00 2023-06-02 15:30:00 Outpatient HUY FRIAS [facility] [id number] [facility] 2023-05-30 00:00:00 2023-05-30 00:00:00 Case Management Krystal Low [facility] INSOLE PRESSER [facility] & CHILD [facility] 1.2.840.114 350.1.13.10 4.2.7.2.686 [id number] [facility] 2023-05-28 14:00:00 2023-05-28 15:19:04 Outpatient P SHELLEY SANCHEZ [facility] [id number] [facility] 2023-05-28 14:00:00 2023-05-28 15:19:04 Service Desk Agent Visit Ultrasound, Arnulfojuliette vee [facility] INSOLE PRESSER [facility] & CHILD [facility] 1.2.840.114 350.1.13.10 4.2.7.2.686 [id number] [facility] 2023-05-21 00:00:00 2023-05-21 00:00:00 Refill Krystal Low [facility] INSOLE PRESSER [facility] & CHILD [facility] 1.2.840.114 350.1.13.10 4.2.7.2.686 [id number] [facility] 2023-05-21 00:00:00 2023-05-21 00:00:00 Telephone Krystal Low [facility] INSOLE PRESSER [facility] CHILD [facility] 1.2.840.114 350.1.13.10 4.2.7.2.686 [id number] [facility] 2023-05-20 15:30:00 2023-05-20 15:30:00 Outpatient R HUY MENDOZA [facility] [id number] [facility] 2023-05-16 09:45:00 2023-05-16 09:45:00 Outpatient R KRYSTAL LOW [facility] [id number] [facility] 2023-05-03 17:42:00 2023-05-03 18:57:00 Outpatient X CANO-EVER S, ARIELA CANO-EVER S, ARIELA [facility] [id number] [facility] 2023-05-03 17:42:00 2023-05-03 18:57:00 Emergency Cano-Ever s, Ariela [facility] 1.2.840.114 350.1.13.10 4.2.7.2.686 [id number] [facility] 2023-04-30 10:45:00 2023-04-30 10:45:00 Outpatient R KRYSTAL LOW [facility] [id number] [facility] 2023-04-18 12:18:00 2023-04-18 16:05:00 Outpatient X CANO-EVER S, ARIELA CANO-EVER S, ARIELA [facility] [id number] [facility] 2023-04-18 12:18:00 2023-04-18 16:05:00 Emergency Acno-Ever sIrlandaAriela [facility] 1.2.840.114 350.1.13.10 4.2.7.2.686 [id number] [facility] 2023-04-17 00:00:00 2023-04-17 00:00:00 Telephone Krystal Low [facility] INSOLE PRESSER [facility] MATERNAL [facility] 1.2.840.114 350.1.13.10 4.2.7.2.686 [id number] [facility] 2023-04-17 00:00:00 2023-04-17 00:00:00 Patient Secure Msg Krystal Low [facility] INSOLE PRESSER [facility] & CHILD [facility] 1.2.840.114 350.1.13.10 4.2.7.2.686 [id number] [facility] 2023-04-08 12:45:00 2023-04-08 12:45:00 Outpatient R KRYSTAL LOW [facility] [id number] [facility] 2023-04-07 00:00:00 2023-04-07 00:00:00 Case Management Krystal Low [facility] INSOLE PRESSER [facility] & CHILD [facility] 1..840.114 350.1.13.10 4.2.7.2.686 [id number] [facility] 2023-04-03 10:30:00 2023-04-03 10:30:00 Outpatient R KRYSTAL LOW [facility] [id number] [facility] 2023-04-03 00:00:00 2023-04-03 00:00:00 Refill Krystal Low [facility] INSOLE PRESSER [facility] & CHILD [facility] 1..840.114 350.1.13.10 4.2.7.2.686 [id number] [facility] 2023-04-02 08:45:00 2023-04-02 09:15:48 Outpatient R KRYSTAL LOW [facility] [id number] [facility] 2023-04-02 08:45:00 2023-04-02 09:15:48 Routine Visit Krystal Low [facility] INSOLE PRESSER [facility] & CHILD [facility] 1.2.840.114 350.1.13.10 4.2.7.2.686 [id number] [facility] 2023-03-21 00:00:00 2023-03-21 00:00:00 Case Management Krystal Low [facility] INSOLE PRESSER [facility] CHILD [facility] 1.2.840.114 350.1.13.10 4.2.7.2.686 [id number] [facility] 2023-03-21 00:00:00 2023-03-21 00:00:00 Orders Only Doctor Unassigned, [place] [facility] 1.2.840.114 350.1.13.10 4.2.7.2.686 [id number] [facility] 2023-03-19 00:00:00 2023-03-19 00:00:00 [facility] 1.2840.114 350.1.13.10 4.2.7.2.686 [id number] [facility] 2023-03-11 12:45:00 2023-03-11 13:26:33 Outpatient R KRYSTAL LOW [facility] [id number] [facility] 2023-03-11 12:45:00 2023-03-11 13:26:33 Routine Visit Krystal Low [facility] 1.2840.114 350.1.13.10 4.2.7.2.686 [id number] 107 [id number] [facility] 2023-03-11 00:00:00 2023-03-11 00:00:00 Orders Only Doctor Unassigned, [place] [facility] 1.2840.114 350.1.13.10 4.2.7.2.686 [id number] [facility] 2023-02-18 00:00:00 2023-02-18 00:00:00 [facility] 1.2.840.114 350.1.13.10 4.2.7.2.686 [id number] [facility] 2023-02-14 00:00:00 2023-02-14 00:00:00 Case Management Krystal Low [facility] INSOLE PRESSER [facility] & CHILD [facility] 1.2.840.114 350.1.13.10 4.2.7.2.686 [id number] [facility] 2023-02-14 00:00:00 2023-02-14 00:00:00 Telephone Krystal Low [facility] INSOLE PRESSER [facility] CHILD [facility] 1.2.840.114 350.1.13.10 4.2.7.2.686 [id number] [facility] 2023-02-11 13:00:00 2023-02-11 14:23:32 Initial Visit Kennedyariel Krystal A [facility] 1.2.840.114 350.1.13.10 4.2.7.2.686 [id number] [facility] 2023-02-11 12:30:00 2023-02-11 13:21:27 Outpatient R KENNEDYARIEL KRYSTAL [facility] [id number] [facility] 2023-02-11 00:00:00 2023-02-11 00:00:00 Orders Only Doctor Unassigned, [place] [facility] 1.2.840.114 350.1.13.10 4.2.7.2.686 [id number] [facility] 2023-02-10 08:30:00 2023-02-10 08:30:00 Outpatient R HUY MENDOZA [facility] [id number] [facility] 2022-01-16 21:05:00 2022-01-17 00:11:00 Emergency X YVONNE SIDDIQI [facility] ERT [id number] [facility] 2022-01-16 21:05:00 2022-01-17 00:11:00 Emergency Yvonne Siddiqi [facility] 1.2.840.114 350.1.13.10 4.2.7.2.686 [id number] [facility] 2021-07-25 00:00:00 2021-07-25 00:00:00 Patient Secure Msg Doctor Unassigned, [place] [facility] 1.2.840.114 350.1.13.10 4.2.7.2.686 [id number] [facility] 2021-04-19 13:15:00 2021-04-19 13:15:00 Outpatient R HUY MENDOZA [facility] [id number] [facility] 2021-02-06 00:00:00 2021-02-06 00:00:00 Case Management Simi Jenniferalee Rios 1.2.840.114 350.1.13.10 4.2.7.2.686 [id number] [facility] 2021-02-06 00:00:00 2021-02-06 00:00:00 Case Management SimiIrlandaJenniferalee [place] 1.2.840.114 350.1.13.10 4.2.7.2.686 [id number] 2020-12-12 00:00:00 2020-12-12 00:00:00 Patient Outreach Broderick Melton [facility] 1.2.840.114 350.1.13.10 4.2.7.2.686 [id number] 2020-12-12 00:00:00 2020-12-12 00:00:00 Patient Outreach Broderick Melton Leon [facility] 1.2.840.114 350.1.13.10 4.2.7.2.686 [id number] [facility] 2020-02-28:00:00 2020-02-28 15:00:00 Outpatient R JOSY CHAUDHARY [facility] [id number] [facility] 2019-12-18 17:30:00 2019-12-18 17:30:00 Outpatient R KRISSY GREEN [facility] [id number] [facility] 2019-11-18 14:30:00 2019-11-18 14:30:00 Outpatient R JOSY CHAUDHARY [facility] [id number] [facility] 2019-05-27 14:41:30 2019-05-27 15:54:53 Routine Visit Josy Chaudhary [facility] 1.2.840.114 350.1.13.10 4.2.7.2.686 [id number] 2019-05-27 14:41:30 2019-05-27 15:54:53 Routine Visit Josy Chaudhary [facility] 1.2.840.114 350.1.13.10 4.2.7.2.686 [id number] [facility] 2019-05-17 17:15:00 2019-05-17 23:59:00 Hospital Encounter Zaid Josy [facility] 1.2.840.114 350.1.13.10 4.2.7.2.686 [id number] [facility] 2019-05-17 17:21:30 2019-05-17 17:36:30 Service Desk Agent Visit 1, Adc Lab Kory Cruz [facility] 1.2.840.114 350.1.13.10 4.2.7.2.686 [id number] [facility] 2019-05-17 15:55:01 2019-05-17 16:56:25 Office Visit Zaid [facility] 1.2.840.114 350.1.13.10 4.2.7.2.686 [id number] 2019-05-17 15:55:01 2019-05-17 16:56:25 Office Visit Josy Chaudhary [facility] 1.2.840.114 350.1.13.10 4.2.7.2.686 [id number] [facility] 2019-05-17 00:00:00 2019-05-17 00:00:00 Orders Only Doctor Unassigned, [place] [facility] 1.2.840.114 350.1.13.10 4.2.7.2.686 [id number] [facility] 2019-05-05 00:00:00 2019-05-05 00:00:00 Telephone Josy Chaudhary [facility] 1.2.840.114 350.1.13.10 4.2.7.2.686 [id number] 134 [id number] [facility] 2019-05-04 15:07:01 2019-05-04 15:22:01 Service Desk Agent Visit 1, Adc Lab Kory Cruz [facility] 1.2.840.114 350.1.13.10 4.2.7.2.686 [id number] [facility] 2019-05-04 12:48:00 2019-05-04 14:57:00 Hospital Encounter Kory Cruz [facility] 1.2.840.114 350.1.13.10 4.2.7.2.686 [id number] [facility] 2019-05-04 00:00:00 2019-05-04 00:00:00 Telephone Josy Chaudhary [facility] 1.2.840.114 350.1.13.10 4.2.7.2.686 [id number] [facility] 2019-05-04 00:00:00 2019-05-04 00:00:00 Orders Only Doctor Unassigned, [place] [facility] 1.2840.114 350.1.13.10 4.2.7.2.686 [id number] [facility] 2019-04-30 00:00:00 2019-04-30 00:00:00 Case Management Josy Chaudhary [facility] 1.0.114 350.1.13.10 4.2.7.2.686 [id number] [facility] 2019-04-29 15:40:17 2019-04-29 16:18:51 Routine Visit Kory [facility] 1.284.114 350.1.13.10 4.2.7.2.686 [id number] [facility] Results Test Description Test Time Test Comments Results Result Co mments Source [facility] IMMUNE [id number] 16:36:33* Test Item Value Reference Range Interpretation Comme nts RHIG CANDIDATE? (test code = 5188) No- see comment Patient is not a candidate for RhIg- Patient is Rh Positive.Performed at [facility] Laboratory Services - ADC Blood [address] [place], [place] [id number] Free: [phone] No. [id number] [facility]cosHepatitis B Surface [id number] 12:56:12 * Test Item Value Reference Range Interpretation Comme nts HBsAg Semi-Quantitative (fredy t code = 5195-3) 0.10 Negative [facility]/2 Ag-Ab with [id number] 09:08:51* Test Item Value Reference Range Interpretation Comme nts HIV Semi-quantitative (test code = 74046-7) 0.18 Negative TIERRA (test code = TIERRA) Non-reactive for HIV-1 antigen and HIV-1/HIV-2 antibodies. ?No laboratory evidence of HIV infection. ?Repeat in 2-4 weeks if acute HIV infection is suspected. [facility] Neuraxial [id number] 09:00:00 Xenia Angel MD ? ? 09/25/2023 [...] air and catheter ?Guidance with: landmark technique}Epidural/Spinal Succasunna and/or Catheter: ?Epidural/Spinal Kit: BBraun ?Needle Type: [...] mastisol then tegaderm and tape. No apparent complications.[facility] - ONCE [id number] 08:11:00* Test Item Value Reference Range Interpretation Comme nts ABO & RH (test code = 20) O Positive IAT (test code = 1185) Negative [facility] Ur[facility] w/o Specific [id number] 22:26:00* Test Item Value Reference Range Interpretation [...] = 3257) n/a Negative - Negati ve [facility] Metabolic Panel (32784)2023-09-16 10:09:50* Test Item Value Reference Range Interpretation Comme nts NA (test code = 9100721962) 135 mmol/L 135-145 K (test code = 6334018630) 3.6 mmol/L 3.5-5.0 CL (test code = 9831063686) 105 mmol/L 98-108 CO2 TOTAL (test code = 6898965292) 25 mmol/L 23-31 AGAP (test code = 9744509325) 5 2-16 BUN (test code = 8140855754) 4 mg/dL 7-23 L GLUCOSE (test code = 8645277490) 88 mg/dL 70-110 CREATININE (test code = 7414081820) 0.49 mg/dL 0.50-1.04 L TOTAL BILI (test code = 5099840066) 1.1 mg/dL 0.1-1.1 CALCIUM (test code = 2222565754) 8.6 mg/dL 8.6-10.6 T PROTEIN (test code = 3728819186) 6.7 g/dL 6.3-8.2 ALBUMIN (test code = 6056315202) 3.3 g/dL 3.5-5.0 L ALK PHOS (test code = 7321155888) 131 U/L 34-122 H ALTv (test code = 1742-6) 17 U/L 5-35 AST(SGOT) (test code = 3750288828) 25 U/L 13-40 eGFR (test code = 76923-2) 135.2 mL/min/1.73m2 CKD-EPI eGFR (2020). Assuming creatinine has been stable day-to-day for at least three months, the eGFR indicates Category G1 (>= 90 mL/min/1.73 m2) Lab Interpretation (test code = 92637-9) Abnormal [facility] with [id number] 09:36:47* Test Item Value Reference Range Interpretation Comme nts WBC (test code = 6690-2) 6.44 See_Comment [Automated [employer]] The system which generated this result transmitted reference range: 4.30 - 11.10 10*3/?L. The reference range was not used to interpret this result as normal/abnormal. RBC (test code = 789-8) 3.72 See_Comment L [Automated [employer]] The system which generated this result transmitted [...] g/dL 31.6-35.1 L RDW-SD (test code = 76887-4) 47.0 fL 39.0-49.9 RDW-CV (test code = 788-0) 17.6 % 12.0-15.5 H PLT (test code = 777-3) 184 See_Comment [Automated messa ge] The system which generated this result transmitted reference range: 166 - 358 10*3/?L. The reference range was not used to interpret this result as normal/abnormal. MPV (test code = 72905-4) 10.1 fL 9.5-12.9 NRBC/100 WBC (test code = 6158270917) 0.0 See_Comment [Automated [employer] ssage] The system which generated this result transmitted reference range: 0.0 - 10.0 /100 WBCs. The reference range was not used to interpret this result as normal/abnormal. NRBC x10^3 (test code = 9521535427) See_Comment [Automated [employer] ge] The system which generated this result transmitted reference range: 10*3/?L. The reference range was not used to interpret this result as normal/abnormal. GRAN MAT (NEUT) % (test code = 770-8) 66.7 % IMM GRAN % (test code = 0379394634) 0.80 % LYMPH % (test code = 736-9) 24.1 % MONO % (test code = 5905-5) 6.5 % EOS % (test code = 713-8) 1.6 % BASO % (test code = 706-2) 0.3 % GRAN MAT x10^3(ANC) (test code = 5137694369) 4.30 10*3/uL 1.88-7.09 IMM GRAN x10^3 (test code = 1745059641) 0.05 10*3/uL 0.00-0.06 LYMPH x10^3 (test code = 731-0) 1.55 10*3/uL 1.32-3.29 MONO x10^3 (test code = 742-7) 0.42 10*3/uL 0.33-0.92 EOS x10^3 (test code = 711-2) 0.10 10*3/uL 0.03-0.39 BASO x10^3 (test code = 704-7) 0.01-0.07 Lab Interpretation (test code = 55745-2) Abnormal [facility] Urinalysis w/o Specific Qdnngoi7874-14-71 22:18:00* Test Item Value Reference Range Interpretation [...] = 3257) n/a Negative - Negati ve [facility] URINALYSIS W/O SPECIFIC WJLRMUD6342-22-61 17:06:00* Test Item Value Reference Range Interpretation [...] = 3257) n/a Negative - Negati ve [facility] ANTIBODY RIZMMN5005-83-80 15:22:41* Test Item Value Reference Range Interpretation Comme [facility] VZV IgG antibody (test code = 98639-6) Negative Negative TIERRA (test code = TIERRA) Positive - Indicat es the patient was exposed to VZV through infection or vaccination.Negative - Indicates the patient could be susceptible to VZV infection.Equivocal - A second specimen should be sent for testing. [facility] MarcosRUBELLA SCREEN EDX0076-35-47 15:22:41* Test Item Value Reference Range Interpretation Comme [facility] Rubella screen IgG (test code = 6472744057) Positive Negative TIERRA (test code = TIERRA) Positive - Indicat es the patient was exposed to Rubella through infection or vaccination.Negative - Indicates the patient could be susceptible to Rubella infection.Equivocal - A second specimen should be sent. [facility]cosSYPHILIS IGG/PBD2760-04-29 15:21:40* Test Item Value Reference Range Interpretation Comme [facility] Syphilis IgG/IgM (test code = 37568-2) Non-reactive Non-reactive TIERRA (test code = TIERRA) Non-reactive - No serologic evidence of T. pallidum infection. Cannot exclude incubating or early syphilis. Submit a second specimen in 2-4 weeks if syphilis is clinically suspected. Equivocal - Further testing to follow. Reactive - Further testing to follow. Lab Interpretation (test code = 20987-0) Normal [facility]PO[facility] GLUCOSE (AUTOMATED)2023-08-22 01:48:28* Test Item Value Reference Range Interpretation Comme [facility] POCT GLU (test code = 7732353109) 133 mg/dL 70-110 H Lab Interpretation (test cod e = 04818-4) Abnormal [facility]cosTransthoracic echo (TTE)2023-08-21 20:30:27* Test Item Value Reference Range Interpretation Comme [facility] Height (test code = 4505578965) 65 in Weight (test code = 4444422516) 219 lbs Systolic BP (test code = 2065875698) 106 mmHg Diastolic BP (test code = 5561286968) 60 mmHg Heart Rate (test code = 0188390978) 90 bpm LVOT stroke volume (test code = 7965353837) 55.30 cm3 EF(Teich) (test code = 2556895565) 74.90 % LVIDD (test code = 2702973610) 5.20 cm LVIDS (test code = 9662057640) 2.90 cm Left Ventricular End Systolic Volume by Teichholz Method (test code = 4047616) 32.2 mL Left Ventricular End Diastolic Volume by Teichholz Method (test code = 3322598) 128.3 mL IVS (test code = 0949566804) 0.66 cm LVPWD (test code = 2151631934) 1.10 cm LVOT diameter (test code = 5512676963) 1.86 cm LVOT area (test code = 3018441965) 2.70 cm2 FS (test code = 3468340128) 44 % MV Peak E Lakshmi (test code = 2966639923) 97.3 cm/s MV Peak A Lakshmi (test code = 8378973758) 80.6 cm/s E/A ratio (test code = 4626668716) 1.21 ratio E wave decelartion time (test code = 1655837975) 0.19 s MV E/e' septal (test code = 2187226663) 11.6 cm/s LA Volume Index (BP) (test code = 8535549986) 37.1 mL/m2 LA volume (BP) (test code = 1834503150) 76.3 mL LVOT peak lakshmi (test code = 7096237037) 108.4 cm/s LVOT mn grad (test code = 5531545270) 2.5 mmHg BSA (test code = 6694121754) 2.06 m2 LA size (test code = 7412328891) 4.0 cm LAV(MOD-sp2) (test code = 5285488007) 54.20 mL LAV(MOD-sp4) (test code = 9578330015) 82.70 mL Tapse (test code = 6482924786) 2.35 cm AV LVOT peak gradient (test code = 5507577227) 4.7 mmHg LVOT peak VTI (test code = 9047107530) 20.3 cm LV V1 mean (test code = 6639129606) 74.60 cm/s MV Prop V (test code = 4866657247) 70.10 cm/s Ao root diam (test code = 2519638912) 3.60 cm Aortic root (test code = 3446672739) 3.6 cm Ao root annulus (test code = 1064019790) 3.6 cm PW (test code = 6708455100) 1.10 cm 0.6-1.1 EF - 2D (test code = 62281024) 74.90 % Interventricular Septum Diastolic Thickness by 2D (test code = 7051953) 0.66 cm Aortic valve mean velocity (test code = 6029318955) 123.5 cm/s Ao peak lakshmi (test code = 6818269430) 177.8 cm/s Ao VTI (test code = 5346679102) 34.6 cm AV area by cont VTI (test code = 7256428484) 1.6 cm2 AV area peak lakshmi (test code = 7732217845) 1.7 cm2 Ao max PG (test code = 4160562449) 12.60 mm[Hg] AV peak gradient (test code = 8824412791) 12.6 mmHg AV valve area (test code = 2640534165) 1.60 cm2 AV mean gradient (test code = 7326441013) 6.5 mmHg MV mean gradient (test code = 1730964067) 1.45 mmHg MV peak gradient (test code = 3719052383) 3.0 mmHg MV pk lakshmi (test code = 7985175122) 86.1 cm/s MV valve area by continuity eq (test code = 4580230748) 2.70 cm2 MV VTI (test code = 5235913249) 20.5 cm MV V2 mean (test code = 4265579888) 56.30 cm/s Radiology Study observation (narrative) (test code = 84902-0) TIERRA (test code = TIERRA) ?Left?Ventricle: Left ventricle size is normal. Increased wall thickness. There is concentric remodeling. Normal wall motion. Hyperdynamic systolic function with a visually estimated EF of 65 - 70%. Normal diastolic function. ?Right?Ventricle: Right ventricle size is normal. Normal systolic function. TAPSE is 2.35 cm. Roscoe Cuellar, [facility] HOLLISardiovascular Medicine FellowBryan Medical Center [facility] VentricleLeft ventricle size is normal. Increased wall [...] apical, parasternal and subcostal views were obtained. [facility] MarcosTHYROID STIMULATING MSSAOMU7408-69-54 17:48:00 * Test Item Value Reference Range Interpretation Comme nts TSH (test code = 8185133162) 0.51 See_Comment [Automated messa ge] The system which generated this result transmitted reference range: 0.45 - 4.70 mIU/L. The reference range was not used to interpret this result as normal/abnormal. Lab Interpretation (test code = 31020-6) Normal [facility] METABOLIC PANEL (NA, K, CL, CO2, GLUCOSE, BUN, CREATININE, CA)2023-08-21 17:14:33* Test Item Value Reference Range Interpretation Comme nts NA (test code = 8412375008) 132 mmol/L 135-145 L K (test code = 4722157454) 4.0 mmol/L 3.5-5.0 CL (test code = 1575812463) 106 mmol/L 98-108 CO2 TOTAL (test code = 3154143809) 17 mmol/L 23-31 L AGAP (test code = 7471038597) 9 2-16 BUN (test code = 9989730247) 5 mg/dL 7-23 L GLUCOSE (test code = 0365093821) 75 mg/dL 70-110 CREATININE (test code = 4880543744) 0.44 mg/dL 0.50-1.04 L CALCIUM (test code = 3841600332) 8.4 mg/dL 8.6-10.6 L eGFR (test code = 21217-5) 138.7 mL/min/1.73m2 CKD-EPI eGFR (2020). Assuming creatinine has been stable day-to-day for at least three months, the eGFR indicates Category G1 (>= 90 mL/min/1.73 m2) Lab Interpretation (test code = 29886-0) Abnormal [facility]cosHIV 1/2 AG-AB WITH NMIGNA8597-32-04 15:05:53* Test Item Value Reference Range Interpretation Comme nts HIV Semi-quantitative (test code = 56593-8) 0.11 Negative TIERRA (test code = TIERRA) Non-reactive for HIV-1 antigen and HIV-1/HIV-2 antibodies. ?No laboratory evidence of HIV infection. ?Repeat in 2-4 weeks if acute HIV infection is suspected. [facility] MarcosHEPATITIS B SURFACE UJAETNF4356-31-86 15:01:33 * Test Item Value Reference Range Interpretation Comme nts HBsAg Semi-Quantitative (fredy t code = 5195-3) 0.07 Negative [facility] MarcosGLYCOSYLATED HEMOGLOBIN (A1C)2023-08-21 14:26:03* Test Item Value Reference Range Interpretation Comme nts HGB A1C (test code = 4548-4) 5.2 % 4.0-5.7 TIERRA (test code = TIERRA) Reference RangesNormal: <5.7%Prediabetes: 5.7 - 6.4%Diabetes: > 6.5% Lab Interpretation (test code = 92679-3) Normal [facility]cosType and Screen - ONCE Tzbvtol1432-81-26 13:34:00* Test Item Value Reference Range Interpretation Comme nts ABO & RH (test code = 20) O POSITIVE IAT (test code = 1185) Negative [facility] MarcosProthrombin Time / OPQ5975-76-44 02:05:48* Test Item Value Reference Range Interpretation [...] the indications. Lab Interpretation (test code = 50129-1) Normal [facility] MarcosaPTT2023-11-30 02:05:48* Test Item Value Reference Range Interpretation Comme [facility] APTT Patient (test code = 3173-2) 27 See_Comment [Automated message] The system which generated this result transmitted reference range: 23 - 38 Seconds. The reference range was not used to interpret this result as normal/abnormal. TIERRA (test code = TIERRA) The [facility] patient population mean normal value for aPTT is 30 seconds. Lab Interpretation (test code = 46399-6) Normal [facility] MarcosCBC WITH OZHS9635-55-98 01:28:43* Test Item Value Reference Range Interpretation [...] g/dL 31.6-35.1 L RDW-SD (test code = 63256-6) 45.6 fL 39.0-49.9 RDW-CV (test code = 788-0) 17.0 % 12.0-15.5 H PLT (test code = 777-3) 228 See_Comment [Automated messa ge] The system which generated this result transmitted reference range: 166 - 358 10*3/?L. The reference range was not used to interpret this result as normal/abnormal. MPV (test code = 67582-4) 10.4 fL 9.5-12.9 NRBC/100 WBC (test code = 1586437249) 0.2 See_Comment [Automated YouFig ssage] The system which generated this result transmitted reference range: 0.0 - 10.0 /100 WBCs. The reference range was not used to interpret this result as normal/abnormal. NRBC x10^3 (test code = 1502672049) 0.02 See_Comment [Automated messa ge] The system which generated this result transmitted reference range: 10*3/?L. The reference range was not used to interpret this result as normal/abnormal. GRAN MAT (NEUT) % (test code = 770-8) 75.4 % IMM GRAN % (test code = 3123769978) 0.90 % LYMPH % (test code = 736-9) 17.6 % MONO % (test code = 5905-5) 4.9 % EOS % (test code = 713-8) 0.9 % BASO % (test code = 706-2) 0.3 % GRAN MAT x10^3(ANC) (test code = 3973526282) 6.84 10*3/uL 1.88-7.09 IMM GRAN x10^3 (test code = 3409329517) 0.08 10*3/uL 0.00-0.06 H LYMPH x10^3 (test code = 731-0) 1.60 10*3/uL 1.32-3.29 MONO x10^3 (test code = 742-7) 0.44 10*3/uL 0.33-0.92 EOS x10^3 (test code = 711-2) 0.08 10*3/uL 0.03-0.39 BASO x10^3 (test code = 704-7) 0.03 10*3/uL 0.01-0.07 Lab Interpretation (test code = 85489-3) Abnormal [facility]cosType and Screen - ONCE Bxexpwn0313-75-45 01:24:00* Test Item Value Reference Range Interpretation Comme nts ABO & RH (test code = 20) O Positive IAT (test code = 1185) Negative [facility] MarcosPOCT URINALYSIS W/O SPECIFIC MOLFCDJ2543-84-27 16:23:00* Test Item Value Reference Range Interpretation [...] = 3257) n/a Negative - Negati ve [facility] URINALYSIS W SPECIFIC MFIEMRC8603-32-43 13:44:00* Test Item Value Reference Range Interpretation [...] POCT U APPEAR (test code = 3267) [facility] URINALYSIS W SPECIFIC DBAMZRU4169-59-68 18:00:00* Test Item Value Reference Range Interpretation [...] POCT U APPEAR (test code = 3267) [facility] URINALYSIS W/O SPECIFIC SQECZTY6230-14-55 18:03:00* Test Item Value Reference Range Interpretation [...] = 3257) Trace Negative - Negati ve [facility]cosPOCT CZCU3098-16-74 18:02:00* Test Item Value Reference Range Interpretation Comme nts POCT PREG (test code = 1605) Positive On board controls acceptable with C Line (test code = 3574) Yes POCT PREG LOT # (test code = 3575) POCT PREG TEST DATE ( test code = 3576) [facility] MarcosCOMP. METABOLIC PANEL (86489)2022-01-17 03:31:19* Test Item Value Reference Range Interpretation Comme nts NA (test code = 0450776719) 139 mmol/L 135-145 K (test code = 2831500185) 4.2 mmol/L 3.5-5.0 CL (test code = 5219625650) 105 mmol/L 98-108 CO2 TOTAL (test code = 1494490666) 23 mmol/L 23-31 AGAP (test code = 8558027568) 2-16 BUN (test code = 5007426790) 9 mg/dL 7-23 GLUCOSE (test code = 3126740222) 94 mg/dL 70-110 CREATININE (test code = 2082086655) 0.61 mg/dL 0.50-1.04 TOTAL BILI (test code = 2064394508) 0.9 mg/dL 0.1-1.1 CALCIUM (test code = 5633180585) 9.4 mg/dL 8.6-10.6 T PROTEIN (test code = 6672508499) 8.3 g/dL 6.3-8.2 H ALBUMIN (test code = 9437514199) 4.7 g/dL 3.5-5.0 ALK PHOS (test code = 2496066964) 87 U/L 34-122 ALTv (test code = 1742-6) 11 U/L 5-35 AST(SGOT) (test code = 0313729650) 19 U/L 13-40 eGFR (test code = 8865137160) mL/min/1.73m2 TIERRA (test code = TIERRA) Association [...] imaging tests). Lab Interpretation (test code = 71627-3) Abnormal [facility] MarcosLIPASE2022-04-28 03:31:19* Test Item Value Reference Range Interpretation Comme nts LIPASE (test code = 0476155279) 68 U/L 0-220 Lab Interpretation (test cod e = 75150-1) Normal [facility] MarcosCB WITH LWSE0063-20-74 03:28:58* Test Item Value Reference Range Interpretation Comme nts WBC (test code = 6690-2) See_Comment [Automated messa ge] The system which generated this result transmitted reference range: 4.30 - 11.10 10*3/?L. The reference range was not used to interpret this result as normal/abnormal. RBC (test code = 789-8) See_Comment [Automated IActivea ge] The system which generated this result [...] 31.9 g/dL 31.6-35.1 RDW-SD (test code = 63749-4) 43.8 fL 39.0-49.9 RDW-CV (test code = 788-0) 15.2 % 12.0-15.5 PLT (test code = 777-3) See_Comment [Automated IActivea ge] The system which generated this result transmitted reference range: 166 - 358 10*3/?L. The reference range was not used to interpret this result as normal/abnormal. MPV (test code = 74017-6) 11.3 fL 9.5-12.9 NRBC/100 WBC (test code = 0251779575) See_Comment [Automated YouFig ssage] The system which generated this result transmitted reference range: 0.0 - 10.0 /100 WBCs. The reference range was not used to interpret this result as normal/abnormal. NRBC x10^3 (test code = 8288959919) <0.01 See_Comment [Automated IActivea ge] The system which generated this result transmitted reference range: 10*3/?L. The reference range was not used to interpret this result as normal/abnormal. GRAN MAT (NEUT) % (test code = 770-8) 71.7 % IMM GRAN % (test code = 0004485450) 0.20 % LYMPH % (test code = 736-9) 22.5 % MONO % (test code = 5905-5) 4.2 % EOS % (test code = 713-8) 0.8 % BASO % (test code = 706-2) 0.6 % GRAN MAT x10^3(ANC) (test code = 1680028466) 6.26 10*3/uL 1.88-7.09 IMM GRAN x10^3 (test code = 1516851953) <0.03 0.00-0.06 LYMPH x10^3 (test code = 731-0) 1.96 10*3/uL 1.32-3.29 MONO x10^3 (test code = 742-7) 0.37 10*3/uL 0.33-0.92 EOS x10^3 (test code = 711-2) 0.07 10*3/uL 0.03-0.39 BASO x10^3 (test code = 704-7) 0.05 10*3/uL 0.01-0.07 Lab Interpretation (test code = 67134-1) Abnormal [facility]cosPOCT JFXS4684-30-98 02:14:00* Test Item Value Reference Range Interpretation Comme nts POCT PREG (test code = 1605) negative On board controls acceptable with C Line (test code = 3574) present POCT PREG LOT # (test code = 3575) [id number] POCT PREG TEST DATE ( test code = 3576) 06/21/2023 Lab Interpretation (test cod e = 75914-8) Normal [facility] MarcosUS ABDOMEN FPOAEWM6522-54-25 23:14:22 Cholelithiasis with no evidence of acute [...] reviewed this study and agree with theabove report.[facility] MarcosURINALYSIS2019-08-13 19:31:00* Test Item Value Reference Range Interpretation Comme nts APPEARANCE (test code = 6701380288) Slightly Cloudy Clear A COLOR (test code = 8040252657) Yellow Yellow PH (test code = 8706672070) 4.8-8.0 SP GRAVITY (test code = 1407201079) <=1.005 1.003-1.030 GLU U QUAL (test code = 7258336348) Negative Negative BLOOD (test code = 7125650651) Negative Negative KETONES (test code = 0423948992) Negative Negative PROTEIN (test code = 2887-8) Negative Negative UROBILIN (test code = 0845828393) 0.2 mg/dL See_Comment [Automated message] The system which generated this result transmitted reference range: 0-1.0 mg/dL. The reference range was not used to interpret this result as normal/abnormal. BILIRUBIN (test code = 5746148931) Negative Negative NITRITE (test code = 4932055999) Negative Negative LE[place] SUMMER (test code = 1529435672) Large Negative A RBC/HPF (test code = 5767422193) See_Comment [Automated message] The system which generated this result transmitted reference range: 0 - 3 HPF. The reference range was not used to interpret this result as normal/abnormal. WBC/HPF (test code = 2732536248) See_Comment H [Automated message] The system which generated this result transmitted reference range: 0 - 5 HPF. The reference range was not used to interpret this result as normal/abnormal. BACTERIA (test code = 6716796616) Moderate Negative A SQ EPITH (test code = 4242378153) HPF Lab Interpretation (test code = 91118-6) Abnormal [facility] OR [facility] ONLY - WET YYKX4818-50-42 19:28:00* Test Item Value Reference Range Interpretation Comme nts Wet Prep (test code = 3221456627) No Trichomonas vaginalis present [facility] ONLY - FERN GCIQ2673-27-14 19:24:00* Test Item Value Reference Range Interpretation Comme nts Fern Test (test code = 1008698756) Negative [facility] History and Physical Notes Date/Time Note Provider Source 2023-09-25 01:42:50 nEjuxEYuCNbfH0Mb9/J2 0wObIC4JAQVglkB3c6D24J lNWLM+qEKM+ll+BApiTtUw7098-20-41L22:42:50F ormatting of this note is different from the original.TRIAGE HISTORY & PHYSICALIDENTIFYING DATASireniti Ron Valdes is 22 year old, /White, 38w6d, female with STEVE 10/03/2023, by Last Menstrual Period.: 1998MRN: [id number] Care Physician: Kory Gonzales COMPLAINTcontractionsHISTORY OF PRESENT [...] 05/27/18 9w2d2 SAB 01/10/18 7w4d1 SAB 04/24/17 3u2dYYUH MEDICAL HISTORYProblem list:Patient Active Problem ListDiagnosis Date [...] (HEMABATE) injection 250 mcg 250 mcg Intramuscular U5KGBTZ4L-YZ IV infusion 1,000 mL 1,000 mL IV Infusion TITRATEFENTanyl PF (SUBLIMAZE (PF)) injection 100 mcg 100 mcg Slow IV Push H9XVJZrmezrzfg ringers IV infusion 500 mL 500 mL IV Infusion ONCElactated ringers IV infusion 500 mL 500 mL IV Infusion PRN - SEE INSTRUCTIONSlactated ringers IV infusion 500 mL 500 mL IV Infusion PRN - SEE INSTRUCTIONSlidocaine 1% (PF) (XYLOCAINE) injection 0.3 mL 0.3 mL Infiltration PRN - SEE INSTRUCTIONSmethylergonovine (METHERGINE) injection 0.2 mg 0.2 mg Intramuscular E6WNZOopKTZTJLpjE (CYTOTEC) tablet 200 mcg 200 mcg Rectal PRNondansetron (ZOFRAN (PF)) injection 4 mg 4 mg Slow IV Push N5LZWGmzpozsza (PITOCIN) 30 units in NS 500 mL [...] Vomiting (N/V). 30 tablet 0 Takingprenatal vit 49-kmyc-epihb-dha (SELECT-OB + DHA) 29 mg iron-1 mg [...] Syphilis ChlamydiaABO & RHDate Value Ref Range Rswecr5209/11/2023 O Positive FinalNo results found for: "HIVMULTIPLEX" No components found for: "HBSHBSAG" Syphilis IgG/IgMDate Value Ref Range Sxfoql1708/21/2023 Non-reactive Non-reactive FinalC. trachomatis Nucleic AcidDate Value Ref Range Bncqjo7609/11/2023 Negative Negative FinalIATDate Value Ref Range Rjeneh2109/11/2023 Negative FinalVaricella Rubella Glucose Group B Strep CBCVZV IgG antibodyDate Value Ref Range Nqujzr5908/21/2023 Negative Negative FinalRubella screen IgGDate Value Ref Range Livxxn6108/21/2023 Positive Negative FinalGLUC 1 HRDate Value Ref Range Plrcml3009/11/2023 95 (L) 120 - 170 mg/dL FinalNo results found for: "CGBS" HGBDate Value Ref Range Qyfwcy5709/16/2023 8.0 (L) 11.6 - 15.0 g/dL FinalHCTDate Value Ref Range Izatzp4509/16/2023 27.4 (L) 35.7 - 45.2 % FinalPLTDate Value Ref Range Bkirbm2809/16/2023 184 166 - 358 10*3/?L [facility]Active [facility] [...] FOB or others- Feels safe- Seen by nursing home social worker on 08/22/2023rug use- UDS positive for alprazolam on multiple UDS this , last one on 09/18/23- Seen by nursing home social worker on 08/22/2023-UDS sent todayHx of [...] detailsVien Pedro Cruz MD 09/25/2023 1:46 AM 46170-7Yvcghba and physical tokfRH9700-70-89N51:54:15History and physical noteTXT1.2.840.545261.1.13.104.2.7.2.48461 9|[id number] for patient cttb27162-5Wkzonyg and physical noteLNNARRATIVEFormatted C-CDA narrative textUT[address] UambZomxnoltkEhgkqtmzgBOMY7096270004SDQKJK KTOFPSBVAPIBIYOB7880-81-97N80:54:151.2.840 .331191.1.72.3.15|1.2.840.622721.1.13.104. 2.7.2.727879_[id number] [facility] 2023-09-16 03:28:41 JJBB9kItns/QWt9WInzl 20BTzVU8bSytlvzvT7nhfl jge+YI2MZKyDhIn9rKHaN/6571-15-46K94:28:41F ormatting of this note is different from the original.ANTEPARTUM HISTORY & PHYSICALIDENTIFYING DATASireniti Ron Valdes is 22 year old, /White, 37w4d, female with STEVE 10/03/2023, by Last Menstrual Period.: 2000MRN: [id number] Care Physician: Krystal Cruzospital Day: 1CHIEF COMPLAINTcontractionsHISTORY OF PRESENT CYPHSSP57 year old @37w4d presents via EMS for [...] 05/27/18 9w2d2 SAB 01/10/18 7w4d1 SAB 04/24/17 7e8dSMRG MEDICAL HISTORYProblem list:Patient Active Problem ListDiagnosis Date [...] (TYLENOL) tablet 650 mg 650 mg Oral J0NMWNrbuwmhno ringers IV infusion 1,000 mL 1,000 mL [...] Vomiting (N/V). 30 tablet 0 Takingprenatal vit 58-fycr-rllal-dha (SELECT-OB + DHA) 29 mg iron-1 mg [...] in the current .Negative screening.DELIVERY PLANvaginalFETAL HEART ABJU225 at first moderate variability now with minimal variabilityToco: 2-3/10 minASSESSMENT AND PLAN22 year old @94q1kEwcq acute drup use and now non reactive NST--labs + IVF ordered--Internal medicine consultMarisol MD Jaja 11118-5Whhmmlx and physical yytxBE7128-13-56K89:36:45History and physical noteTXT1.2.840.253828.1.13.104.2.7.2.96724 9|[id number] for patient zvps92486-2Kxqegno and physical noteLNNARRATIVEFormatted C-CDA narrative textUT[address] WlvjThvlsaetiIxnhsgsngYXRZ5142913319BYHMSM UXHKPJFEOJBQRHGB5587-54-57S70:36:451.2.840 .140409.1.72.3.15|1.2.840.065728.1.13.104. 2.7.2.727879_[id number] [facility] Procedure Notes Date/Time Note Provider Source 2023-09-25 03:40:49 0aCSUFu55dsRAsrh6fvqgRdlgAXvP60ZqWH wDLrKGyKO2YOnW2fdn+L5opupiOrT3328-2 09-25T03:40:49Associated Order(s): Central Neuraxial Block Central Neuraxial BlockDate/Time: 09/25/2023 3:00 AMPerformed by: Xenia Angel MDAuthorized by: Xenia Angel MDPatibairon Location: OBEnd Time: 09/25/2023 3:40 AMReason for [...] rate / toco and NIBPLocation: lumbar (1-5)Lumbar: L2-D3Qogfhytz: midlineTechnique: SUJEY air and catheterGuidance with: landmark technique}Epidural/Spinal Succasunna and/or Catheter:Epidural/Spinal Kit: BBraunNeedle Type: TuohyNeedle Gauge: 17 GNeedle Length: 3.5 in (8.89 cm)Needle Insertion Depth: 7Catheter Type: multiportCatheter Size: 19 GCatheter at Skin Depth: 12Number of Attempts: 2Test Dose: lidocaine 1.5% with epinephrine 1-to-200,000 and negativeDose: 3 ccCatheter Securement Method: Tegaderm, surgical tape and clear occlusive dressingAssessment:Sensory Level: above Q44Utrgm Outcome: successful block, no apparent complications, pain [...] then tegaderm and tape. No apparent complications. 56642-6Sfbgpciuyjgows procedure qslhKB5068-25-49Q58:43:36Anesthesio logy procedure noteTXT1.2.840.759859.1.13.104.2.7. 2.827993|[id number] for patient qpyp62214-5Cfigwucx operation noteLNNARRATIVEFormatted C-CDA narrative textAN-ANESTHESIOLOGY ANESTHESIOLOGISTAN-ANESTHESIOLOGY ANESTHESIOLOGIST[address] Bg[id number] 2TRHZKWVJEVVKKZYSBTCKEC9225-98-88P0 3:43:361.2.840.096155.1.72.3.15|1.2 .840.562620.1.13.104.2.7.2.727879_1 [id number] AN-ANESTHESIOLOGY ANESTHESIOLOGIST [facility] Notes Date/Time Note Provider Source 2023-12-18 13:26:12 Wr8exOLWQB2WTKmq0lu49AG39ZLN2JXxnDY5 qR+XyXv0TvQUwQoS1+1ULZXrvnOm0976-09- 28T13:26:12 Name and verified. Pt stated that she was not able to go see psych as she resendiz snot have insurance. Wanted to see if he still has medicaid- sent her to [facility].COLETTE ABBOTT RN 12/18/2023 1:26 PM 28821-3Wgfksiyiq encounter LalwDC5316-83-94C61:26:53Telephone encounter NoteTXT1.2.840.941192.1.13.104.2.7.2 .543364|[id number] for patient lwcz90125-2BigjFSOFVUMOPAXCykjvizln C-CDA narrative [id number] Kelsey Scar [id number] KBWSYFLAFVXEOXRBPZNTQN7196-08-36V67: 26:531.2.840.602072.1.72.3.15|1.2.84 0.102955.1.13.104.2.7.2.727879_20603 65391 Colette Abbott [facility]ly [facility] 2023-11-28 08:59:02 57ToGcS1TF/S2q4tzOM1knznU1SLPltInfYz OAXdbhMpxVaTWECO1yQ5fYYLU4Hu6916-93- 08T08:59:02 ATC pt. Straight to . LM on for pt to return call. Todayticketshart message sent.COLETTE ABBOTT RN 11/28/2023 8:59 AM 44811-0Zimjvoaxo encounter BehxQM3315-59-50N99:59:45Telephone encounter NoteTXT1.2.840.973556.1.13.104.2.7.2 .847746|[id number] for patient wpke67385-9DmjcCCZIXCNNASIEzsynjfng C-CDA narrative nlcz122816470Vqlgchlrx G Cervantes [id number] SXYGMWBCLNTBEHUKBSADXV9902-05-34I10: 59:451.2.840.568961.1.72.3.15|1.2.84 0.502051.1.13.104.2.7.2.727879_20443 76491 Colette Abbott [facility] 2023-11-21 14:27:31 nVmcLqb0fplbkjXlMOLz9l5NLwiv3MSvwMZC jKboyE9tiLfp33bSdoOdXClMZtx12022-40- 01T14:27:31 Name and verified. Had to reschedule it for Friday. Woke up sick. Picked up medication from pharmacy and started taking both The Zoloft and Buspirone. She has not felt a change at this time. Advised pt that I will call her on Friday. Verbalized understanding.COLETTE ABBOTT RN 11/21/2023 2:30 PM 74571-4Ncbyeskmt encounter DqsgPQ6461-65-17P25:30:20Telephone encounter NoteTXT1.2.840.018310.1.13.104.2.7.2 .373516|[id number] for patient ybhc32731-7HsesSNVPIRLRJCFYtehtrkwe C-CDA narrative cigl386578162Pqfgsgjsl G Cervantes [id number] UTUUNBTZFRTEMMEDUIXZFT1663-76-13Z28: 30:201.2.840.878492.1.72.3.15|1.2.84 0.573041.1.13.104.2.7.2.727879_20387 85660 Colette Abbott [facility] 2023-11-18 09:35:26 fpFVxO9mIQrwcrr1uxDa8jHb+REl0nXwhkgg Chayo+efqe0nWinmY9QtlQeYEc2bAu5923-15- 27T09:35:26 Name and verified. Pt stated that she was incarcerated and was released on 10/30 and had 24 pills left which lasted her 12 days. I advised her that I will call pharmacy and will call her back. Verbalized understanding.Spoke to [facility]- the last fill of the [...] take afterwards. Pt stated that she will bulk picker both medications as pharmacy.Pt stated that her psychiatry appt is this . I advised her that I will call her on Friday to see how appt went and to see if the provider changed anything. Verbalized understanding.COLETTE ABBOTT RN 11/18/2023 9:39 AM 84323-9Fqhmzsjrt encounter CknnWC5968-58-53E43:41:08Telephone encounter NoteTXT1.2.840.173892.1.13.104.2.7.2 .695317|[id number] for patient qzsq50708-8ByrtZBBGEYOHHHIOrhufceqk C-CDA narrative [id number] Abbott RN[address] StreetQivlX[id number] GVJCJRPEVJJDHKDNYOIWXG9338-18-71S08: 41:081.2.840.503084.1.72.3.15|1.2.84 0.524364.1.13.104.2.7.2.727879_20349 53641 Colette Abbott RN [facility] 2023-11-17 14:36:08 xQCCEKhu/YC4n2H+eth9KWY41KJSsV2pl0N9 /gRsPZoZI8dXtwad+1i7IQ7o2xHt5138-49- 26T14:36:08 ATC pt. LM on for pt to return call.Mychart message sent.COLETTE ABBOTT RN 11/17/2023 2:37 PM 63877-9Tpxkyszon encounter XmjtJS5721-80-87T27:44:28Telephone encounter NoteTXT1.2.840.535200.1.13.104.2.7.2 .031340|[id number] for patient xykk18809-8BvdrSAYDWYSDDLEAqnhdudnp C-CDA narrative textUT[address] Qiua[id number] TXERQCYOYIIZHQKWSZDKAU8700-53-87H43: 44:281.2.840.299163.1.72.3.15|1.2.84 0.174952.1.13.104.2.7.2.727879_20342 [id number] [facility] 2023-11-17 10:27:16 PVye6U+x38lWvtrsw/AdUkTeQHqpXeH89z77 TTd1Cgwf2IuM723tHTEuxJqb7h235525-71- 26T10:27:16 Name and verified. Pt stated now [...] if they changed any medication.ATC. LM on VM for pt to return call.COLETTE ABBOTT RN 11/17/2023 10:39 AM 17024-9Eqynfgxdp encounter GhycYW1330-23-59W33:40:08Telephone encounter NoteTXT1.2.840.699234.1.13.104.2.7.2 .725835|[id number] for patient kehy25500-1BecfILACQYUZRHOIfpthygpw C-CDA narrative [id number] LDRZXDGXRLBJNCAPRCHHRB1705-82-63T65: 40:081.2.840.750412.1.72.3.15|1.2.84 0.179236.1.13.104.2.7.2.727879_20339 89424 [facility] 2023-11-17 08:59:21 hORtKWOubEzdTtXiJ1dwVBqTIDzp3EhhU/sL g+coQ8/Jky45bTjosLi6OgeFhQl42996-86- 26T08:59:21 MARYAM. Danny on for pt to return call.COLETTE ABBOTT RN 11/17/2023 8:59 AM 46503-3Auldtdaoi encounter FksqXW4008-60-58E48:59:43Telephone encounter NoteTXT1.2.840.793122.1.13.104.2.7.2 .654197|5392507454IPLpjmnchab for patient dbru81062-1YpkiTRIKWIXQRICKzrreestd C-CDA narrative text[id number] TFSDGEYRBKEGFXFQZMHGKW0568-09-25X24: 59:431.2.840.516118.1.72.3.15|1.2.84 0.532649.1.13.104.2.7.2.727879_20337 14396 [facility] 2023-11-15 12:16:29 f6lIuG1C270qlyMoLyu/RP0nb3uzbYNpBg0Q 10gX540SHnq0K8N1bJ+LTNQuBO9B9382-82- 24T12:16:29 Arina Valdes is a 23 year old femalePt is requesting refill for Buspirone but would like to discuss a higher dosage. Pt asking if appt is needed can it be telehealth because she can not get transportation to [place] at this time.Please call pt back at [phone]. 45666-7Bihgojrgn encounter BbaqQB0381-33-77Z27:21:25Telephone encounter NoteTXT1.2.840.182182.1.13.104.2.7.2 .898224|[id number] for patient yezv77773-0ImwwBWJTPJDAKWILvjbyxmyp C-CDA narrative hdee789131714Whrwjxb M Brown[address]TypvEgnktrcncDzvxmacgnPKZB1484945417 XJIURNHCLVHQFCZAUPEDMI1719-36-47F45: 21:251.2.840.547739.1.72.3.15|1.2.84 0.886119.1.13.104.2.7.2.727879_20333 69872 Lori George [facility] 2023-10-09 15:59:41 7QB1V4PJUw5opL8kH5YoXpVM5b4xg8PzH2t1 5q6QFNhGtJ/Y+xEIcVQupr0ahoiI6067-23- 18T15:59:41 Name and verified. Pt stated that she listened to VM. Again emphasized that if there is someone to care for baby tonight- to Take benadryl 50mg x1 only and go to sleep. Do this around 8-9pm. If worsen, thoughts of self harm or to others or feeling of hopelessness- need to go to ER. Make sure she goes to appt tomorrow. If need to be earlier- she may do so. Verbalized understanding.COLETTE ABBOTT RN 10/09/2023 4:01 PM 43857-9Czkvpvoqy encounter OnxyGU8217-71-19T12:02:01Telephone encounter NoteTXT1.2.840.540453.1.13.104.2.7.2 .540143|[id number] for patient qsbb75694-8FsjdMCNNIXXFEBJBpojwgnol C-CDA narrative [id number] Abbott RN[address] DlreWklx[id number] YQXSHOUZQZRMFNLJTCIHPO2133-58-97P05: 02:011.2.840.517976.1.72.3.15|1.2.84 0.234723.1.13.104.2.7.2.727879_20014 64516 Colette Abbott [facility] 2023-10-09 14:49:39 xTqzL+lmG2rr+VXyPizS407JQz0XLnkVw4sB 4y3gudIawf16m7iO5BgxcRrDSau22652-90- 18T14:49:39 Per Pt- hx of anxiety and [...] there is someone to care for baby tonight- have pt take Benadryl 50mg po x 1 and go to sleep. Take it around 8-9 pm. Give strong ER precautions and make sure she goes to appt.LM x2 and mychart message sent. Will try again.COLETTE ABBOTT RN 10/09/2023 2:53 PM 70171-2Munuccirn encounter HgyqFQ2734-77-70Y05:54:19Telephone encounter NoteTXT1.2.840.918989.1.13.104.2.7.2 .701246|9615896555HLSpnhbfdaa for patient ceon23610-7PyplMZHWNFFMENLHvjuamwmm C-CDA narrative text[address] StreetTfmmDqidthxlzMqiharlxvWVGO6334025507 SRNGRXNOOKVXHCDGZSOMQK4156-45-24J22: 54:191.2.840.863113.1.72.3.15|1.2.84 0.571162.1.13.104.2.7.2.727879_20023 35777 [facility] 2023-10-09 14:31:55 qdPN59jCeqkZu7vyCVELOGKXAAIF1yokQOaI 3Y9ZEq+vmyoI9Pdojedkb8qLhebo7650-45- 18T14:31:55 Patient states she is having signs of pp depression. She states Dr. Cruz told her to call and she would send in a prescription for her. She is not having a good day today, no thoughts of hurting herself or the baby but feels like nothing is going right today.[id number] - [place] [address] AT [facility] In [address]vo DRIVEPhone: Vvzvjncyctvmiy signed by Reyna Avalos at 10/09/2023 2:34 PM TNN13232-9Kvbsemylk encounter TagmOL4059-38-86N57:34:17Telephone encounter NoteTXT1.2.840.639458.1.13.104.2.7.2 .430806|[id number] for patient jwic99387-7CcryDNESSAPTRPMWxftmutsl C-CDA narrative cumo55667283Msvgh S Hernandez[id number] QSKYEJDPRPQTMBHHZVISFQ2092-50-96Z00: 34:171.2.840.433583.1.72.3.15|1.2.84 0.059312.1.13.104.2.7.2.727879_20023 62076 Reyna Avalos [facility] 2023-09-26 23:31:11 3kpG/Bjl8RunL07UPLLfoqL57dHaceSJkdJA GlHrnth1v1mecTWg+277NKIKQQuv9911-99- 05T23:31:11 Problem: PainGoal: Control of pain at or below patient's documented comfort goalOutcome: Progressing as expectedGoal: Reduction in pain sensationOutcome: Progressing as expectedProblem: Bleeding, Risk ofGoal: Absence of impaired coagulation signs and symptomsOutcome: Progressing as expectedGoal: Absence of active bleedingOutcome: Progressing as expectedProblem: Discharge Planning - PostpartumGoal: Adequate for dischargeOutcome: Progressing as expectedGoal: Mood stableOutcome: Progressing as expected 05041-6Tihv of care hvzbXC1015-58-30D02:31:16Plan of care noteTXT1.2.840.481612.1.13.104.2.7.2 .290985|[id number] for patient kfny82988-1YxyePEAIEFXVTWWVqgckuhdg C-CDA narrative ygqj839902663Wdzblgot Vela [id number] FHBCLUVHHQMEBZHVCRDNYD2057-57-19Q14: 31:161.2.840.269705.1.72.3.15|1.2.84 0.370350.1.13.104.2.7.2.727879_ 10631 Flaquita Branch RN [facility] 2023-09-26 08:06:29 aFj/RLt8hKGyMELTx45iDyyc4uA1SE+0JIZS r+Pg4CngjIizycE76CFtI16QsFpZ6299-66- 05T08:06:29 Problem: PainGoal: Control of pain at or below patient's documented comfort goalOutcome: Progressing as expectedGoal: Reduction in pain sensationOutcome: Progressing as expectedProblem: Bleeding, Risk ofGoal: Absence of impaired coagulation signs and symptomsOutcome: Progressing as expectedGoal: Absence of active bleedingOutcome: Progressing as expectedProblem: Discharge Planning - PostpartumGoal: Adequate for dischargeOutcome: Progressing as expectedGoal: Mood stableOutcome: Progressing as expected 14507-9Tepb of care jmaxWT4568-85-29Q08:06:48Plan of care noteTXT1.2.840.441349.1.13.104.2.7.2 .658355|2430110420UZDgkjmkpkk for patient ixkl78606-0EnteZHFRTOYVQJEIfgovcxqs C-CDA narrative midv214956983Sgdzpbs E Duarte RN[address]YpunPlbnhzvnlXfdbdkcjbQGXH6994085957 DYYMNLNHRGAPUNUWFKECZS9859-66-79Z52: 06:481.2.840.132548.1.72.3.15|1.2.84 0.908415.1.13.104.2.7.2.727879_19914 66616 Nesha Matta RN [facility] 2023-09-25 19:06:08 oRmElDcnJnYol53PoVkfEz56i69y3eCLLszA 9xHEgApdBwJvDWGiZ8BvC55tqXoM6521-35- 04T19:06:08 Problem: PainGoal: Control of pain at or below patient's documented comfort goalOutcome: Progressing as expectedGoal: Reduction in pain sensationOutcome: Progressing as expectedProblem: Bleeding, Risk ofGoal: Absence of impaired coagulation signs and symptomsOutcome: Progressing as expectedGoal: Absence of active bleedingOutcome: Progressing as expectedProblem: Discharge Planning - PostpartumGoal: Adequate for dischargeOutcome: Progressing as expectedGoal: Mood stableOutcome: Progressing as expected 27398-7Dxat of care gxggEY9220-04-25K99:06:14Plan of care noteTXT1.2.840.381722.1.13.104.2.7.2 .122241|3614450663MQCzrnghzku for patient vxqv82804-4CorhZIQCOBNZWIBTzszidats C-CDA narrative liuv884424663Rkrwwcev M Martinez RN[address] StreetVkddMdexxxekwEiklewwwhZFNC1804020428 AUSFIEZYUQERDVRRYKXNTI9210-39-62K44: 06:141.2.840.207831.1.72.3.15|1.2.84 0.035902.1.13.104.2.7.2.727879_19921 87804 Heidi Plata RN [facility] 2023-09-25 08:54:21 gKfXk2a1yGHCPdJCfV/uRHkIFjBEfxGhXelB ItyXWyWg2epGug7X3pWZiQ/2mYBF2137-62- 04T08:54:21 Patient: Arina Velasquez RamosProcedure SummaryDate: 09/25/23 Room / Location:Anesthesia Start: 0300 Anesthesia Stop: 851Procedure: CENTRAL NEURAXIAL BLOCK Diagnosis:Scheduled Providers: Responsible Provider: Stanley, Xenia Altinger, MDAnesthesia Type: Not recorded ASA Status: 2Anesthesia Type: No value filed.Last yyxvngBBQbhuRsharHkfsJbK9Ryhff were no known notable events for this [...] No apparent complicationsEaston Piedra MD 09/25/2023 08:54 85490-8Dollhwaplsbkwc Postoperative evaluation and management mgbzCM1433-62-63G80:54:34Anesthesiol ogy Postoperative evaluation and management noteTXT1.2.840.894382.1.13.104.2.7.2 .013354|9639163368MCIcqxabtce for patient ultp74753-0Sizeldrf operation noteLNNARRATIVEFormatted C-CDA narrative textAN-ANESTHESIOLOGY ANESTHESIOLOGISTAN-ANESTHESIOLOGY ANESTHESIOLOGIST[address] XivuI[id number] YNBPMXTEUVHAKOHAEKJSYI8933-10-43P72: 54:341.2.840.619755.1.72.3.15|1.2.84 0.737587.1.13.104.2.7.2.727879_19905 65338 AN-ANESTHESIOLOGY ANESTHESIOLOGIST [facility] 2023-09-25 06:42:27 V2Znsbq6qrtd/16OTVUCWLnWDF5LdM7Wg7dw t1RYlq/k4z8V8x9zyqfaeHaSKtqP1669-12- 04T06:42:27 Problem: PainGoal: Control of pain at or below patient's documented comfort goalOutcome: Progressing as expectedGoal: Reduction in pain sensationOutcome: Progressing as expectedProblem: Bleeding, Risk ofGoal: Absence of impaired coagulation signs and symptomsOutcome: Progressing as expectedGoal: Absence of active bleedingOutcome: Progressing as expected 49720-1Igml of care xmmwGP2825-66-94X13:42:28Plan of care noteTXT1.2.840.754755.1.13.104.2.7.2 .501500|5157345151WMKjngqifaa for patient vygd24336-9ZeslORTPOOONOGVQjwzbuqwt C-CDA narrative kthx474123887UtkxtheNikki Velazquez RN[address] StreetBnlhH[id number] ELGLUEHXDVTXQSDHCDUDCI9600-93-07B75: 42:281.2.840.712055.1.72.3.15|1.2.84 0.431429.1.13.104.2.7.2.727879_19913 22858 Nikki Velazquez RN [facility] 2023-09-25 06:41:38 wv2u48vybHupdScLdheT/eivx6vM85JlRqGi QcR2CTDH2LlfkvTw83Gaineh3n9C9251-00- 04T06:41:38 Problem: PainGoal: Control of pain at or below patient's documented comfort goalOutcome: Progressing as expectedGoal: Reduction in pain sensationOutcome: Progressing as expectedProblem: Bleeding, Risk ofGoal: Absence of impaired coagulation signs and symptomsOutcome: Progressing as expectedGoal: Absence of active bleedingOutcome: Progressing as expectedProblem: Intrapartum process (including labor pain)Goal: Absence of or reduction of complications of labor09/25/2023 0641 by Nikki Velazquez RNOutcome: Resolved09/25/2023417 by Nikki Velazquez RNOutcome: Progressing as expectedGoal: Able to cope with pain09/25/2023 0641 by Nikki Velazquez, RNOutcome: Resolved09/25/2023417 by Nikki Velazquez RNOutcome: Progressing as expectedGoal: Adequate to move to next level of care09/25/2023 06 by Nikki Velazquez, RNOutcome: Resolved09/25/2023417 by Nikki Velazquez RNOutcome: Progressing as expectedGoal: Reduction in pain sensation09/25/2023640 by Nikki Velazquez RNOutcome: Resolved09/25/2023417 by Nikki Velazquez RNOutcome: Progressing as expected 68069-5Oxii of care qnnnIX3597-45-62H58:41:44Plan of care noteTXT1.2.840.716721.1.13.104.2.7.2 .191070|3779327393GNYiudrwarv for patient mlun58551-2CmjgIRSOUSZPFSQKsnpwstkj C-CDA narrative textUT[address] StreetKezrQegrzbpifLwjzfqymwGVQZ7018089412 MQHHCOHMDLDITTSCCSCULP3497-78-97T87: 41:441.2.840.097526.1.72.3.15|1.2.84 0.817346.1.13.104.2.7.2.727879_19913 9[address]99 [facility] 2023-09-25 06:08:58 KqlWmpqFGWl7mVP5F0dMQCCjl2P+qRquzrUZ sLXkeZY/A5EOdikgSapK+4vLw77L9541-91- 04T06:08:58 DELIVERY BY SPONTANEOUS VAGINAL DELIVERYDelivery Date: [...] Minute 5 Minute 10 MinuteApgar Totals: 8 9Eneidan Pedro Cruz MD 09/25/2023 6:10 AM 41271-6Nwntn and delivery summary rufnCE0501-79-31G23:29:51Labor and delivery summary noteTXT1.2.840.215774.1.13.104.2.7.2 .594047|9579324073TTBxpxlsprh for patient eigd30723-1RvtiMDPWQOHFDEQDydvuunzn C-CDA narrative text[id number] VHAJVTLVBMNYMXXGNZKGFQ2202-25-04K31: 29:511.2.840.629484.1.72.3.15|1.2.84 0.537142.1.13.104.2.7.2.727879_19913 86070 [facility] 2023-09-25 04:18:18 k4YdW+WTIH0E8QBdWYp0pM1lFv/8gIlDQbNy lzMR4FBJ0zJ9yKBHHn1iDQzuIDnj5301-70- 04T04:18:18 Problem: Intrapartum process (including labor pain)Goal: [...] Absence of active bleedingOutcome: Progressing as expected 37774-2Gxeq of care rblcWB1561-38-99Z58:18:21Plan of care noteTXT1.2.840.435022.1.13.104.2.7.2 .578840|0158332150MOBhpkunvvl for patient lylp65379-9TnmiKTDUTINPJTWEkwqkcffb C-CDA narrative textUT[address] QspfNfnygoelhUkfmivrniYKVI1471532324 HSKZKARTOLFBSHKJEOVADI1251-10-08X29: 18:211.2.840.337229.1.72.3.15|1.2.84 0.151937.1.13.104.2.7.2.727879_19913 55279 [facility] 2023-09-25 03:37:05 YWS5dm4lS8p3qQ92vLVW2WsMsCGH62rb3atO utuctqW7VZi4ZtkEWTSkILfgqnu89785-89- 04T03:37:05 Name/ MRN / Age / Gender:Arina Valdes, 036901M62 year old femaleBMI:Estimated body mass index is [...] not found *Procedure: CENTRAL NEURAXIAL BLOCKOR Location: [facility] - OR LOCATIONAnesthesia Preop Eval (physical exam)Anesthesia Preop: Nuoq-on-TjkiZHET Risk Factors: femaleAnesthesia HistoryAnesthesia History Negative(-) Hx [...] prior to surgery. Hold on DOS.Phentermine: Alert [facility] anesthesiologistSGLT2 Inhibitors: "gliflozins" to be held [...] LDRAdditional comments: Date Anesthesia Start: 09/25/2023Labor Room: [address] [place] [address] Ron Valdes is a 22 year old [...] and desires to proceed with the epidural. 17714-1Cnndzhrxbktpwq Preoperative evaluation and management wnvpUO2744-86-86W12:38:52Anesthesiol ogy Preoperative evaluation and management noteTXT1.2.840.509251.1.13.104.2.7.2 .291626|[id number] for patient xdxu24513-4Iadebkhu operation noteLNNARRATIVEFormatted C-CDA narrative textUT[address] VgwxBoc[id number] CUUQMMUQREZSTQJMWUGLVR6365-68-43K34: 38:521.2.840.995623.1.72.3.15|1.2.84 0.507193.1.13.104.2.7.2.727879_19911 42472 [facility] 2023-09-25 01:15:02 tUcehVQIekWUngMb9WILE3oHoME3tkDxhepb kvsKZbFc1TF8vLi2mIte7DvrpF7v4782-33- 04T01:15:02 Pt arriving with complaints of contractions. Pt is 39 weeks , . No rupture of membranes.Report to Radames Ojeda [place] L&[place] [address]-6Cphvnheqh department MatpOA2191-55-06W45:15:16Emergency department NoteTXT1.2.840.334924.1.13.104.2.7.2 .021674|[id number] for patient ffjr63722-1NvfnAXNWCHCECQQFxgnwnyhc C-CDA narrative fqoe259239709Oaokyz D Roman RNUT[id number] LAKEIYADZSUAVTOPSPUANB9456-40-22L24: 15:161.2.840.983813.1.72.3.15|1.2.84 0.708678.1.13.104.2.7.2.727879_19911 31160 Windy Deleon RN [facility] 2023-09-24 07:51:06 RGW+AV/5eHsbIOEncZ0AfKpxp2jM0NNWMc+R tf2BkZue9mBFWD1yw4W6+x3j9NfQ1774-45- 03T07:51:06 Triage call transferred to nj. Patient [...] Cruz notified.Pedro Gomez RN 09/24/2023 7:57 AM 90519-6Wdvzgcdkt encounter SjliTP4301-62-34K68:57:46Telephone encounter NoteTXT1.2.840.592330.1.13.104.2.7.2 .098800|[id number] for patient alea80790-5AikfKGYIVNIKUBTHglqeazls C-CDA narrative [id number] Collins RNUT[id number] RSJMRTSGDKPVZTOBUGMQKT8357-53-00F75: 57:461.2.840.632683.1.72.3.15|1.2.84 0.027010.1.13.104.2.7.2.727879_ [id number] Pedro Gomez CARLOS [facility] 2023-09-24 07:43:24 MHN1S2u2MsKRK/9BbJU0pcOMfWUoq8JIB3fz GMSXEdgGlry/hjLc/qrTXrKphQJz8220-82- 03T07:43:24 Pt calling says she having contractions think she may be in labor they are 5 min apart, having some bloody discharge along with backache. Scheduled for delivery tomorrow has appt today in clinic. 59954-1Lbwsmqxyc encounter BtwqTT9580-75-35S36:44:46Telephone encounter NoteTXT1.2.840.836750.1.13.104.2.7.2 .340967|[id number] for patient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
--- NOTE | 2024-01-24 20:40 | EDPHYS ---
Physician Documentation [facility] Name: Arina Valdes Age: 23 yrs Sex: Female : 2000 Arrival Date: 01/24/2024 Time: 18:24 Bed IW9 Private MD: ED Physician Aba Rich HPI: 01/23 18:55 This 23 yrs old Female presents to ER via Ambulatory with complaints of cp Abdominal Cramping, Leg Pain, Back Pain. 18:55 The patient presents with abdominal pain mid and lower abdomen. cp 18:55 Onset: The symptoms/episode began/occurred 4 day(s) ago, and became worse 2 day(s) ago. cp The symptoms radiate to front of legs. Associated signs and symptoms: Pertinent positives: vaginal discharge, Pertinent negatives: anorexia, blood in stools, chest pain, constipation, diarrhea, fever, hematuria, vomiting, vaginal bleeding. The symptoms are described as crampy. Severity of pain: in the emergency department the pain is unchanged despite home interventions. Historical: - Allergies: 18:44 No Known Allergies; hb - PMHx: 18:44 Anxiety; depressive disorder; Heart Murmur; pre eclampsia; UTI; hb - Immunization history:: Adult Immunizations up to date. - Infectious Disease History:: Denies. - Social history:: Smoking status: Patient denies any tobacco usage or history of. ROS: 19:00 Cardiovascular: Negative for chest pain, palpitations, cp 19:00 Eyes: Negative for injury, pain, redness, and discharge, cp 19:00 Constitutional: Negative for body aches, chills, fever, poor PO intake, 19:00 ENT: Negative for drainage from ear(s), ear pain, sore throat, difficulty swallowing, difficulty handling secretions, 19:00 Respiratory: Negative for cough, shortness of breath, wheezing, 19:00 Abdomen/GI: Positive for abdominal pain, abdominal cramps, Negative for vomiting, diarrhea, constipation, 19:00 : Positive for vaginal discharge, Negative for urinary symptoms, vaginal bleeding, 19:00 Neuro: Negative for altered mental status, dizziness, headache, numbness, syncope, weakness, 19:00 All other systems are negative, Exam: 19:05 Constitutional: The patient appears in no acute distress, alert, awake, non-toxic, well cp developed, well nourished, uncomfortable, 19:05 Head/Face: Normocephalic, atraumatic. cp 19:05 Eyes: Periorbital structures: appear normal, Conjunctiva: normal, no exudate, no injection, Sclera: no appreciated abnormality, Lids and lashes: appear normal, bilaterally, 19:05 ENT: External ear(s): are unremarkable, Nose: is normal, Mouth: Lips: moist, Oral mucosa: moist, Posterior pharynx: Airway: no evidence of obstruction, patent, 19:05 Chest/axilla: Inspection: normal, 19:05 Cardiovascular: Rate: normal, Rhythm: regular, 19:05 Respiratory: the patient does not display signs of respiratory distress, Respirations: normal, no use of accessory muscles, no retractions, labored breathing, is not present, Breath sounds: are clear throughout, no decreased breath sounds, no stridor, no wheezing, 19:05 Abdomen/GI: Inspection: abdomen appears normal, Bowel sounds: active, all quadrants, Palpation: soft, in all quadrants, moderate abdominal tenderness, in the umbilical area, right lower quadrant and left lower quadrant, rebound tenderness, is not appreciated, involuntary guarding, is not appreciated, 19:05 Back: CVA tenderness, is absent, Vital Signs: 18:43 Weight 98.43 kg; Height 5 ft. 5 in. ; Pain 10/10; hb 18:43 BP 106 / 64; Pulse 84; Resp 18; Temp 98.3(TE); Pulse Ox 100% on R/A; hb 18:43 Body Mass Index 36.11 (98.43 kg, 165.1 cm) hb 18:43 Pain Scale: Adult hb MDM: 18:47 Patient medically screened. cp 20:35 Data reviewed: vital signs, nurses notes. ED course: Patient unavailable for labs and cp radiology imaging. Patient left the ED without lab work and/or imaging and/or receiving discharge instructions. Stable appearance. Patient can return at any time for reevaluation. 01/23 18:52 Order name: IV Saline Lock cp 01/23 18:52 Order name: Labs collected and sent cp Administered Medications: No medications were administered Disposition: 01/24 00:10 I was immediately available on-site in the Emergency Department for consultation in the [facility] care of the patient. Disposition Summary: 01/24/24 20:39 Discharge Ordered Notes: Location: Home cp Problem: new cp Symptoms: are unchanged cp Condition: Stable cp Diagnosis - Abdominal pain, unspecified cp Followup: cp - With: Emergency Department - When: As needed - Reason: Worsening of condition Discharge Instructions: - Discharge Summary Sheet cp - Abdominal Pain, Adult cp Forms: - Medication Reconciliation Form cp - Antibiotic Education cp - Prescription Opioid Use cp - Patient Portal Instructions cp - Leadership Thank You Letter cp Signatures: Dispatcher [employer] EDMS Remigio Leonard PA PA cp Anita Ramires, RN RN Aba Rich DO DO ms3 Corrections: (The following items were deleted from the chart) 01/23 18:52 18:52 CBC+H.LAB.BRZ ordered. EDMS EDMS 18:52 18:52 COMPREHENSIVE METABOLIC PANEL+C.LAB.BRZ ordered. EDMS EDMS 18:52 18:52 LIPASE+C.LAB.BRZ ordered. EDMS EDMS 18:52 18:52 Test, Urine+UC.LAB.BRZ ordered. EDMS EDMS 18:52 18:52 Urinalysis+U.LAB.BRZ ordered. EDMS EDMS
--- NOTE | 2024-01-24 20:40 | ER ---
Nurse's Notes [facility] Name: Arina Valdes Age: 23 yrs Sex: Female : 2000 Arrival Date: 01/24/2024 Time: 18:24 Bed IW9 Private MD: Diagnosis: Abdominal pain, unspecified Presentation: 01/23 18:43 Chief complaint: Patient states: Abdominal pain radiating to back and legs. Pt reports hb having a 4 month old baby. "I was not checked post because I was incarcerated." Reports white discharge. Coronavirus screen: At this time, the client does not indicate any symptoms associated with coronavirus-19. Ebola Screen: No symptoms or risks identified at this time. Initial Sepsis Screen: Does the patient meet any 2 criteria? No. Patient's initial sepsis screen is negative. Does the patient have a suspected source of infection? No. Patient's initial sepsis screen is negative. Risk Assessment: Do you want to hurt yourself or someone else? Patient reports no desire to harm self or others. Onset of symptoms was January 24, 2024 at 18:44. 18:43 Method Of Arrival: Ambulatory 18:43 Acuity: PEYTON 3 hb Triage Assessment: 18:44 General: Appears in no apparent distress. comfortable, Behavior is calm, cooperative, hb appropriate for age. Pain: Complains of pain in right lower quadrant and left lower quadrant Pain does not radiate. Pain currently is 8 out of 10 on a pain scale. Quality of pain is described as throbbing, Pain began suddenly. EENT: No signs and/or symptoms were reported regarding the EENT system. Neuro: Level of Consciousness is awake, alert, obeys commands, Oriented to person, place, time, situation. Cardiovascular: Capillary refill < 3 seconds Patient's skin is warm and dry. Respiratory: Airway is patent Respiratory effort is even, unlabored. GI: Abdomen is round non-distended, Reports lower abdominal pain. : No signs and/or symptoms were reported regarding the genitourinary system. Derm: No signs and/or symptoms reported regarding the dermatologic system. Musculoskeletal: No signs and/or symptoms reported regarding the musculoskeletal system. Historical: - Allergies: 18:44 No Known Allergies; hb - PMHx: 18:44 Anxiety; depressive disorder; Heart Murmur; pre eclampsia; UTI; hb - Immunization history:: Adult Immunizations up to date. - Infectious Disease History:: Denies. - Social history:: Smoking status: Patient denies any tobacco usage or history of. Vital Signs: 18:43 Weight 98.43 kg; Height 5 ft. 5 in. ; Pain 10/10; hb 18:43 BP 106 / 64; Pulse 84; Resp 18; Temp 98.3(TE); Pulse Ox 100% on R/A; hb 18:43 Body Mass Index 36.11 (98.43 kg, 165.1 cm) hb 18:43 Pain Scale: Adult hb ED Course: 18:26 Patient arrived in ED. rg4 18:27 Remigio Leonard PA is PHCP. cp 18:27 Pancho Sierra MD is Attending Physician. cp 18:44 Triage completed. hb 18:44 Arm band placed on right wrist. hb 20:37 Aba Rich DO is Attending Physician. cp Administered Medications: No medications were administered Outcome: 19:50 Eloped from waiting room, after seeing physician Time discovered patient gone: January 23, vc1 2023 at 19:50 19:50 Condition: good vc1 20:39 Discharge ordered by . cp 20:44 Patient left the ED. vc1 Signatures: Remigio Leonard PA PA cp Baxter, Heather, RN RN Asia Andres rg4 Yen Yeh RN RN vc1
[2024-01-24 20:58] VITALS: BP 106/64; TEMP 98.3; O2SAT 100
== END 2024-01-24 20:44 | disposition home or self-care (01) ==
LOC: ER 18:24
DX: R10.32 Left lower quadrant pain (principal); R10.31 Right lower quadrant pain
CPT/HCPCS: 99281

== ENCOUNTER 2024-01-31 09:44 | Emergency (ER) | payer OTHER ==
--- OUTSIDE RECORDS SUMMARY | 2024-01-31 09:55 | XMS REPORT | Continuity of Care Document ---
Author Name Unknown Address [address] [facility] [address] [place] [address] [facility] thconnect Address [address] [facility] [address] [place] [address] Care Team Providers Care Coding Analyst Name Role Phone KORY CRUZ Primary Care Physician Unavailab le Doctor Unassigned, [place] Attending Clinician Kiran Cruz MD, Kory Vasquez Attending Clinician [phone] KORY CRUZ Attending Clinician Unavailable Xenia Angel MD Attending Clinician + Agnes Pedraza MD Attending Clinician [phone] ARIELA WILKINSON Attending Clinician ARIELA Dunn Attending Clinician Jose Antonio candelario 2, [facility] Attending Clinician Unavailable MARY AVINA Attending Clinician Unavailable Mary Avina MD Attending Clinician [phone] ELOY CHAVEZ Attending Clinician Unavaila ble Quintero DO, Nacho Attending Clinician [phone] Sheldon KENNEDY, Kristal Phelps Attending Clinician + Scott KENNEDY, Eloy Ramires Attending Clinician [phone], [facility] Attending Clinician Unavailcatherine Melton MD, Sunita Segura Attending Clinician [phone] Nurse, [facility] Attending Clinician Amanda rustam RODRIGUEZMKrystal Attending Clinician [phone] Sammy RN, Heidi Stinson Attending Clinician Unavaila kam Mendoza WHJENNIFERPHuy Attending Clinician + HUY MENDOZA Attending Clinician Unavail SHELLEY Mccarthy Attending Clinician Unav costa Ultrasound, [facility] Attending Clinician Unavaila Shelley Ortiz MD Attending Clinician + KRYSTAL LOW Attending Clinician Unavaila YVONNE Montano Attending Clinician Unavailable Yvonne Rodriguez Attending Clinician [phone] [facility]ending [facility]ician Unava Broderick Diaz DO Attending Clinician [phone] JOSY CHAUDHARY Attending Clinician Unavailable KRISSY GREEN Attending Clinician Unavailable Josy Chaudhary PA-C Attending Clinician [phone] 1, [facility] Attending Clinician Unavailable ARIELA WILKINSON Admitting Clinician KORY Weller Admitting Clinician Unavailable Anthony KENNEDY, Kory Vasquez Admitting Clinician [phone] MARY AVINA Admitting Clinician Unavailable Fabrice KENNEDY, Mary Masters Admitting Clinician [phone] ELOY CHAVEZ Admitting Clinician UnavailEloy Lewis MD Admitting Clinician + [phone] Payers Payer Name Policy Type Policy Number Effective Date Expirati on Date Source [facility] [id number] 2023 00:00:00 MEDICAID PENDING PENDING 2023 00:00:00 2023 00:00:00 [place] [id number] 2023 00:00:00 2023 00:00:00 [facility] KIRAN MCCLELLAND [id number] 2018 00:00:00 Problems Condition Name Condition Details Condition Category Status Onset Date Resolution Date Last Treatment Date Treating Clinician Comments Source Normal labor Normal labor Disease Active 09-25 00:00: 00 [facility] Liveborn infant, of [place] , born in hospital by vaginal delivery Liveborn , of [place] , born in hospital by vaginal delivery Disease Active 09-25 00:00: 00 [facility] 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 Disease Active 2022-09 00:00: 00 [facility] 37 weeks gestation of 37 weeks gestation of Disease Active 2022-09 00:00: 00 [facility] Drug use complicati ng in third trimester Drug use complicati ng in third trimester Disease Active 2022-09 00:00: 00 [facility] 38 weeks gestation of 38 weeks gestation of Disease Active 2022-09 00:00: 00 [facility] Fall (on) (from) unspecifie d stairs and steps, sequela Fall (on) (from) unspecifie d stairs and steps, sequela Disease Active 2022-09 00:00: 00 [facility] Injury Injury Disease Active 2022-09 00:00: 00 [facility] Fall Fall Disease Active 2022-09 00:00: 00 [facility] High-risk in third trimester High-risk in third trimester Disease Active 2022-09 00:00: 00 [facility] Limited care in third trimester Limited care in third trimester Disease Active 2022-09 00:00: 00 [facility] Cramping affecting , antepartum Cramping affecting , antepartum Disease Active 2022-09 00:00: 00 [facility] 30 weeks gestation of 30 weeks gestation of Disease Active 2022-09 00:00: 00 [facility] 31 weeks gestation of 31 weeks gestation of Disease Active 2022-09 00:00: 00 [facility] uterine contractio ns, antepartum , third trimester uterine contractio ns, antepartum , third trimester Disease Active 2022-09 00:00: 00 [facility] 33 weeks gestation of 33 weeks gestation of Disease Active 2022-09 00:00: 00 [facility] Trichomona l vaginitis during Trichomona l vaginitis during Disease Active 02-14 00:00: 00 [facility] Maternal varicella, non-immune Maternal varicella, non-immune Disease Active 02-12 00:00: 00 [facility] Obesity affecting Obesity affecting Disease Active 02-11 00:00: 00 [facility] Nausea and vomiting during Nausea and vomiting during Disease Active 02-11 00:00: 00 [facility] History of heart murmur in childhood History of heart murmur in childhood Disease Active 02-11 00:00: 00 Overview: Formattin g of this note might be different from the original. Age 12EKG NSR with sinus arrhythmi a. Normal EKG compared to 7. [facility] Family history of autism Family history of autism Disease Active 02-11 00:00: 00 Overview: Formattin g of this note might be different from the original. Patient sister and daughter [facility] Nexplanon insertion Nexplanon insertion Disease Active 2018-09 00:00: 00 [facility] Nexplanon in place Nexplanon in place Disease Active 2018-09 00:00: 00 [facility] Encounter for female control Encounter for female control Disease Active 2018-09 00:00: 00 [facility] Anemia, antepartum , third trimester Anemia, antepartum , third trimester Disease Active 2018-09 1-12 00:00: 00 [facility] Obesity (BMI 30-39.9) Obesity (BMI 30-39.9) Disease Active 01-04 00:00: 00 [facility] History of depression History of depression Disease Active 01-04 00:00: 00 [facility] History of anxiety and depression History of anxiety and depression Disease Active 01-04 00:00: 00 [facility] Anxiety during Anxiety during Disease Active 01-04 00:00: 00 [facility] Allergies, Adverse Reactions, Alerts Allergy Name Allergy Type Status Severity Reaction(s) Onset Date Inactive Date Treating Clinician Comments Source NO KNOWN ALLERGIE S Drug Class Active [facility] Social History Social Habit Start Date Stop Date Quantity Comments Source ASSERTION 2023-01-10 00:00:00 [facility] History of tobacco use Passive smoker [facility] Gender identity [facility] Sexual orientation U [facility] Alcohol intake 2023-10-10 00:00:00 2023-10-10 00:00:00 Current non-drinker of alcohol (finding) [facility] Tobacco Comment 2023-02-11 00:00:00 2023-02-11 00:00:00 fiance smokes outside [facility] Tobacco use and exposure 2023-02-11 00:00:00 2023-02-11 00:00:00 Smokeless tobacco non-user [facility] History of Social function 2023-02-11 00:00:00 2023-02-11 00:00:00 [facility] Exposure to SARS-CoV-2 (event) 2022-01-06 00:00:00 2022-01-16 20:33:00 Unable to assess [facility] Sex Assigned At 2000 00:00:00 2000 00:00:00 [facility] Smoking Status Start Date Stop Date Source Never smoked tobacco [facility] Medications Ordered Medication Name Filled Medication Name Start Date Stop Date Current Medication? Ordering Clinician Indication Dosage Frequency Signature (SIG) Comments Components Source SERTraline (ZOLOFT) 50 mg tablet 10-17 00:00: 00 Yes [id number] 50mg Take 1 tablet by mouth in the morning. [facility] busPIRone 10 mg tablet 10-10 00:00: 00 Yes [id number] 10mg Take 1 tablet by mouth in the morning and 1 tablet in the evening. [facility] SERTraline (ZOLOFT) 25 mg tablet 10-10 00:00: 00 10-18 05:59 :00 No [id number] 25mg Take 1 tablet by mouth in the morning for 7 days. [facility] vitamin w/FA tablet 09-26 00:00: 00 Yes [id number] 1{tbl} Take 1 tablet by mouth in the morning. [facility] docusate 100 mg capsule 09-26 00:00: 00 Yes [id number] 200mg Take 2 capsules by mouth once daily as needed for Constipati on. [facility] ferrous sulfate 325 mg (65 mg iron) tablet 09-26 00:00: 00 Yes [id number] 325mg Take 1 tablet by mouth in the morning and 1 tablet in the evening. [facility] ibuprofen 600 mg tablet 09-26 00:00: 00 Yes [id number] 600mg Take 1 tablet by mouth every 6 (six) hours as needed (Pain). Take with food or milk. [facility] witch Gilbert (TUCKS) 50 % topical pad 09-25 16:22: 14 Yes Topical, Q4HPRN, Starting on Airam 09/25/23 at 1022, Until Discontinu ed, Routine, rectal/hem orrhoidal [facility] rho(D) immune globulin (RHOGAM) syringe 300 mcg 09-25 16:18: 36 Yes 300ug 300 mcg, Intramuscu lar, ONCE, For 1 dose, Conditiona l, Routine [facility] HYDROcodone -acetaminop hen (NORCO 5) 5-325 mg tablet 1 tablet 09-25 16:18: 06 Yes 1{tbl} 1 tablet, Oral, Q6HPRN, Starting on Airam 09/25/23 at 1018, Until Discontinu ed, Routine, Pain (scale 7-10) [facility] ibuprofen (IBU) tablet 600 mg 09-25 16:18: 06 Yes 600mg 600 mg, Oral, Q6HPRN, Starting on Airam 09/25/23 at 1018, Until Discontinu ed, Routine, Pain (scale 4-6) [facility] acetaminoph en (TYLENOL) tablet 650 mg 09-25 16:18: 06 Yes 650mg 650 mg, Oral, Q6HPRN, Starting on Airam 09/25/23 at 1018, Until Discontinu ed, Routine, Pain (scale 1-3) [facility] diphenhydrA MINE (BENADRYL) tablet 25 mg 09-25 16:18: 06 Yes 25mg 25 mg, Oral, Q6HPRN, Starting on Airam 09/25/23 at 1018, Until Discontinu ed, Routine, Sleep, Itching [facility] ondansetron (ZOFRAN (PF)) injection 4 mg 09-25 16:18: 06 Yes 4mg 4 mg, Slow IV Push, Q8HPRN, Starting on Airam 09/25/23 at 1018, Until Discontinu ed, Routine, Nausea and Vomiting (N/V) [facility] simethicone (GAS RELIEF (SIMETHICON E)) chewable tablet 160 mg 09-25 16:18: 06 Yes 160mg 160 mg, Oral, PC+HSPRN, Starting on Airam 09/25/23 at 1018, Until Discontinu ed, Routine, Gas [facility] docusate (COLACE) capsule 200 mg 09-25 16:18: 06 Yes 200mg 200 mg, Oral, QDAILYPRN, Starting on Airam 09/25/23 at 1018, Until Discontinu ed, Routine, Constipati on [facility] magnesium hydroxide (MILK OF MAGNESIA) 400 mg/5 mL suspension 30 mL 09-25 16:18: 06 Yes 30mL 30 mL, Oral, QDAILYPRN, Starting on Airam 09/25/23 at 1018, Until Discontinu ed, Routine, Constipati on [facility] benzocaine- menthol (DERMOPLAST ) 20-0.5 % topical spray 09-25 16:18: 06 Yes Topical, PRN, Starting on Airam 09/25/23 at 1018, Until Discontinu ed, Routine, Perineum discomfort [facility] SERTraline (ZOLOFT) tablet 100 mg 09-25 15:00: 00 Yes 100mg 100 mg, Oral, DAILY, First dose on Airam 09/25/23 at 0900, Until Discontinu ed, Routine [facility] fentaNYL-ro pivacaine 2 mcg/mL-0.1 % (PF) in NS 200 mL epidural infusion RTU 09-25 09:30: 00 09-25 14:54 :08 No Epidural, ONCE INTRA PROCEDURE, Starting on Airam 09/25/23 at 0330, Until Airam 09/25/23 at 0854, Routine, Intra-op [facility] lidocaine-e pinephrine (XYLOCAINE W/EPINEPHRI NE) 1.5 %-1:200,000 injection 09-25 09:30: 00 09-25 14:54 :08 No Intraderma l, ONCE INTRA PROCEDURE, Starting on Airam 09/25/23 at 0330, Until Airam 09/25/23 at 0854, Routine, Intra-op [facility] FENTanyl PF (SUBLIMAZE (PF)) injection 100 mcg 09-25 07:40: 08 09-25 16:22 :14 No 100ug 100 mcg, Slow IV Push, Q1HPRN, Starting on Airam 09/25/23 at 0140, Until Airam 09/25/23 at 1022, Routine, contractio n pain without an epidural and SVE < 8 cm and Cat I strip [facility] ondansetron (ZOFRAN (PF)) injection 4 mg 09-25 07:40: 00 09-25 16:22 :14 No 4mg 4 mg, Slow IV Push, Q8HPRN, Nausea and Vomiting (N/V), Starting on Airam 24 at 0140
Do ses of ondansetro n 16 mg and above need to be administer ed via IV piggyback. For Dose >=24mg ECG monitoring is advisable.
[facility] oxytocin (PITOCIN) 30 units in NS 500 mL IV infusion 09-25 07:38: 50 09-25 16:21 :41 No 2mU/min at 2-40 mL/hr, IV Infusion, TITRATE, Starting on Airam 09/25/23 at 0138, Until Airam 24 at 1021, ABHAY [facility] oxytocin (PITOCIN) 30 units in NS 500 mL IV infusion 09-25 07:36: 45 09-25 13:45 :00 No 600mL/h 600 mL/hr, IV Infusion, PRN, PPH, Starting on Airam 09/25/23 at 0136, For 1 dose
As instructed by physician at bedside.<b r> [facility] lactated ringers IV infusion 500 mL 09-25 07:36: 45 09-25 16:21 :41 No 500mL at 999 mL/hr, 500 mL, IV Infusion, PRN - SEE INSTRUCTIO NS, Starting on Airam 09/25/23 at 0136, Until Airam 24 at 1021, Routine [facility] D5W-LR IV infusion 1,000 mL 09-25 07:36: 45 09-25 16:21 :40 No 1000mL at 1-125 mL/hr, IV Infusion, TITRATE, Starting on Airam 09/25/23 at 0136, Until Airam 24 at 1021, Routine [facility] famotidine 20 mg tablet 2022-09 00:00: 00 09-26 00:00 :00 No [id number] 20mg Take 1 tablet by mouth in the morning and 1 tablet in the evening. [facility] lactated ringers IV infusion 1,000 mL 2022-09 09:30: 00 Yes 1000mL at 125 mL/hr, 1,000 mL, IV Infusion, CONTINUOUS , Starting on Fri09/16/23 at 0330, Until Discontinu ed, Routine [facility] acetaminoph en (TYLENOL) tablet 650 mg 2022-09 09:17: 17 Yes 650mg 650 mg, Oral, Q6HPRN, Starting on Fri09/16/23 at 0317, Until Discontinu ed, Routine, Pain (scale 1-3) [facility] SERTraline 100 mg tablet 2022-09 00:00: 00 09-26 00:00 :00 No [id number] 100mg Take 1 tablet by mouth in the morning. [facility] proMETHazin e (PHENERGAN) tablet 25 mg 2022-09 14:29: 24 Yes 25mg 25 mg, Oral, Q6HPRN, Starting on Fri08/22/23 at 0829, Until Discontinu ed, Routine, Nausea and Vomiting (N/V) [facility] diphenhydrA MINE (BENADRYL) tablet 25 mg 2022-09 03:00: 00 08-22 03:19 :00 No 25mg 25 mg, Oral, ONCE, 1 dose, On Fri08/21/23 at 2100, Routine [facility] ferrous sulfate 325 mg (65 mg iron) tablet 2022-09 00:00: 00 09-26 00:00 :00 No [id number] 325mg Take 1 tablet by mouth in the morning. [facility] cyclobenzap rine (FLEXERIL) tablet 10 mg 2022-09 22:15: 00 08-21 22:06 :00 No 10mg 10 mg, Oral, ONCE NOW, 1 dose, On Fri08/21/23 at 1615, Routine [facility] terbutaline (BRETHINE) injection 0.25 mg 2022-09 19:45: 00 08-21 19:08 :00 No .25mg 0.25 mg, Subcutaneo us, ONCE, 1 dose, On Fri08/21/23 at 1345, Routine [facility] lactated ringers IV infusion 1,000 mL 2022-09 18:00: 00 08-21 19:10 :00 No 1000mL at 999 mL/hr, 1,000 mL, IV Infusion, ONCE, 1 dose, On Fri08/21/23 at 1200, Routine [facility] acetaminoph en (TYLENOL) tablet 1,000 mg 2022-09 17:00: 00 08-21 16:12 :00 No 1000mg 1,000 mg, Oral, ONCE, 1 dose, On Fri08/21/23 at 1100, Routine [facility] ferrous sulfate tablet 325 mg 2022-09 15:00: 00 Yes 325mg 325 mg, Oral, DAILY, First dose on Fri08/21/23 at 0900, Until Discontinu ed, Routine [facility] SERTraline (ZOLOFT) tablet 100 mg 2022-09 15:00: 00 Yes 100mg 100 mg, Oral, DAILY, First dose on Fri08/21/23 at 0900, Until Discontinu ed, Routine [facility] diphenhydrA MINE (BENADRYL) tablet 25 mg 2022-09 09:16: 00 08-21 09:24 :00 No 25mg 25 mg, Oral, ONCE, 1 dose, On Fri08/21/23 at 0330, Routine [facility] fluconazole (DIFLUCAN) tablet 150 mg 2022-09 08:00: 00 08-21 08:00 :00 No 150mg 150 mg, Oral, ONCE, 1 dose, On Fri08/21/23 at 0200, ABHAY
Re ason for Anti-Infec tive: Documented Infection< br>Documen refugio Infection Site: Pelvic
Duration of Therapy: 7 days [facility] alum-mag hydroxide-s imeth (MAG-AL PLUS) 200-200-20 mg/5 mL suspension 30 mL 2022-09 07:05: 45 Yes 30mL 30 mL, Oral, Q6HPRN, Starting on Fri08/21/23 at 0105, Until Discontinu ed, Routine, Indigestio n [facility] docusate (COLACE) capsule 200 mg 2022-09 07:05: 45 Yes 200mg 200 mg, Oral, QHSPRN, Starting on Fri08/21/23 at 0105, Until Discontinu ed, Routine, Constipati on [facility] magnesium hydroxide (MILK OF MAGNESIA) 400 mg/5 mL suspension 30 mL 2022-09 07:05: 45 Yes 30mL 30 mL, Oral, QDAILYPRN, Starting on Fri08/21/23 at 0105, Until Discontinu ed, Routine, Constipati on [facility] ondansetron (ZOFRAN (PF)) injection 4 mg 2022-09 06:45: 00 08-21 06:58 :00 No 4mg 4 mg, Slow IV Push, ONCE, On Fri08/21/23 at 0045, For 1 dose
Do ses of ondansetro n 16 mg and above need to be administer ed via IV piggyback. For Dose >=24mg ECG monitoring is advisable.
[facility] acetaminoph en (TYLENOL) tablet 1,000 mg 2022-09 06:45: 00 08-21 06:58 :00 No 1000mg 1,000 mg, Oral, ONCE, 1 dose, On Fri08/21/23 at 0045, Routine [facility] FENTanyl PF (SUBLIMAZE (PF)) injection 100 mcg 2022-09 02:15: 00 08-21 01:26 :00 No 100ug 100 mcg, Slow IV Push, ONCE, 1 dose, On Fri08/20/23 at 2015, Routine [facility] betamethaso ne acet,sod phos (CELESTONE SOLUSPAN) 6 mg/mL injection 12 mg 2022-09 01:45: 00 08-22 01:34 :00 No 12mg 12 mg, Intramuscu lar, Q24H, 2 doses, First dose on Fri08/20/23 at 1945, Last dose on Fri08/21/23 at 1945, Routine [facility] D5W 0.9% NaCl (NS) IV infusion 1,000 mL 2022-09 23:45: 00 08-21 19:39 :48 No 1000mL at 125 mL/hr, 1,000 mL, IV Infusion, CONTINUOUS , Starting on Fri08/20/23 at 1745, Until Fri08/21/23 at 1339, Routine [facility] SERTraline 100 mg tablet 2022-09 00:00: 00 09-11 00:00 :00 No [id number] 100mg Take 1 tablet by mouth in the morning. [facility] Nitrofurant oin&Nit. Macrocryst (MACROBID) 100 mg capsule 2022-09 00:00: 00 08-12 05:59 :00 No [id number] 100mg Take 1 capsule by mouth in the morning and 1 capsule in the evening. Do all this for 7 days. [facility] acetaminoph en (TYLENOL) tablet 650 mg 2022-09 10:00: 00 07-29 09:53 :00 No 650mg 650 mg, Oral, ONCE, 1 dose, On Fri07/29/23 at 0400, Routine [facility] SERTraline 100 mg tablet 05-21 00:00: 00 08-04 00:00 :00 No [id number] 109 100mg Take 1 tablet by mouth in the morning. [facility] ondansetron (ZOFRAN (PF)) injection 4 mg 04-18 20:45: 00 04-18 20:21 :00 No 4mg 4 mg, Slow IV Push, ONCE, On Fri04/18/23 at 1545, For 1 dose
Do ses of ondansetro n 16 mg and above need to be administer ed via IV piggyback. For Dose >=24mg ECG monitoring is advisable.
[facility] NaCl 0.9% (NS) bolus infusion 1,000 mL 04-18 20:30: 00 04-18 19:32 :00 No 1000mL at 999 mL/hr, 1,000 mL, IV Infusion, ONCE, 1 dose, On Fri04/18/23 at 1530, STAT [facility] NaCl 0.9% (NS) bolus infusion 1,000 mL 04-18 19:15: 00 04-18 18:27 :00 No 1000mL at 999 mL/hr, 1,000 mL, IV Infusion, ONCE, 1 dose, On Fri04/18/23 at 1415, STAT [facility] metroNIDAZO LE (FLAGYL) 500 mg tablet 04-18 00:00: 00 08-04 00:00 :00 No [id number] 500mg Take 1 tablet by mouth every 12 (twelve) hours. [facility] fluconazole (DIFLUCAN) 150 mg tablet 04-07 00:00: 00 04-08 04:59 :00 No [id number] 150mg Take 1 tablet by mouth once now for 1 dose. [facility] proMETHazin e 25 mg tablet 04-03 00:00: 00 09-26 00:00 :00 No [id number] 25mg Take 1 tablet by mouth every 4 (four) hours as needed for Nausea and Vomiting (N/V). [facility] SERTraline (ZOLOFT) 50 mg tablet 04-03 00:00: 00 05-08 04:59 :00 No [id number] 109 Take 1 tablet by mouth daily for 4 days, THEN 2 tablets daily for 30 days. [facility] vit 33-iron-fol ic-dha (SELECT-OB + DHA) 29 mg iron-1 mg -250 mg combo pack 03-11 00:00: 00 Yes [id number] 1{packe t} Take 1 Packet by mouth in the morning. [facility] vit 33-iron-fol ic-dha (SELECT-OB + DHA) 29 mg iron-1 mg -250 mg combo pack 03-11 00:00: 00 09-26 00:00 :00 No [id number] 1{packe t} Take 1 Packet by mouth in the morning. [facility] proMETHazin e 25 mg tablet 02-18 00:00: 00 04-03 00:00 :00 No [id number] 25mg Take 1 tablet by mouth every 4 (four) hours as needed for Nausea and Vomiting (N/V). [facility] metroNIDAZO LE 500 mg tablet 02-14 00:00: 00 02-15 04:59 :00 No [id number] 2000mg Take 4 tablets by mouth once now for 1 dose. [facility] ondansetron (ZOFRAN (PF)) injection 4 mg 01-17 04:00: 00 01-17 03:11 :00 No 4mg 4 mg, Slow IV Push, ONCE, 1 dose, On Fri01/16/22 at 2300, ABHAY [facility] NaCl 0.9% (NS) bolus infusion 1,000 mL 01-17 04:00: 01-17 03:52 :00 No 1000mL at 999 mL/hr, 1,000 mL, IV Infusion, ONCE, 1 dose, On Fri01/16/22 at 2300, ABHAY [facility] ondansetron 4 mg disintegrat ing tablet 01-16 00:00: 04-03 00:00 :00 No [id number] 4mg Take 1 tablet by mouth every 8 (eight) hours as needed for Nausea and Vomiting (N/V). [facility] azithromyci n 250 mg tablet 12-17 00:00: 02-11 00:00 :00 No [id number] 250mg Take 1 tablet by mouth daily. Take 500 mg day 1, then 250 mg days 2 to 5. [facility] Nitrofurant oin&Nit. Macrocryst 100 mg capsule 05-04 00:00: 00 05-12 04:59 :00 No [id number] 100mg Take 1 capsule by mouth 2 (two) times daily for 7 days. [facility] metroNIDAZO LE 500 mg tablet 04-30 00:00: 00 05-04 00:00 :00 No [id number] 500mg Take 1 tablet by mouth every 12 (twelve) hours. [facility] fluconazole (DIFLUCAN) 200 mg tablet 04-29 00:00: 00 05-04 00:00 :00 No [id number] 200mg Take 1 tablet by mouth daily. [facility] FTI19-cgag, carb,glu-FA -dss-dha (CITRANATAL DHA, ALGAL OIL,) 27 mg iron-1 mg -50 mg-250 mg Cmpk 415 00:00: 00 Yes [id number] 9106 Take 1 TAB-CAP/M2 by mouth daily. [facility] Immunizations Ordered Immunization Name Filled Immunization Name Date Status Comments Source SARS-COV-2 COVID-19 VACCINE - (MODERNA) 2021-11-01 00:00:00 Completed [facility] SARS-COV-2 COVID-19 VACCINE - (MODERNA) 2021-11-01 00:00:00 Completed [facility] SARS-COV-2 COVID-19 VACCINE - (MODERNA) 2021-11-01 00:00:00 Completed [facility] SARS-COV-2 COVID-19 VACCINE - (MODERNA) 2021-11-01 00:00:00 Completed [facility] SARS-COV-2 COVID-19 VACCINE - (MODERNA) 2021-11-01 00:00:00 Completed [facility] SARS-COV-2 COVID-19 VACCINE - (MODERNA) 2021-11-01 00:00:00 Completed [facility] SARS-COV-2 COVID-19 VACCINE - (MODERNA) 2021-11-01 00:00:00 Completed [facility] SARS-COV-2 COVID-19 VACCINE - (MODERNA) 2021-11-01 00:00:00 Completed [facility] SARS-COV-2 COVID-19 VACCINE - (MODERNA) 2021-11-01 00:00:00 Completed [facility] SARS-COV-2 COVID-19 VACCINE - (MODERNA) 2021-11-01 00:00:00 Completed [facility] SARS-COV-2 COVID-19 VACCINE - (MODERNA) 2021-11-01 00:00:00 Completed [facility] SARS-COV-2 COVID-19 VACCINE - (MODERNA) 2021-11-01 00:00:00 Completed [facility] SARS-COV-2 COVID-19 VACCINE - (MODERNA) 2021-11-01 00:00:00 Completed [facility] SARS-COV-2 COVID-19 VACCINE - (MODERNA) 2021-11-01 00:00:00 Completed [facility] SARS-COV-2 COVID-19 VACCINE - (MODERNA) 2021-11-01 00:00:00 Completed [facility] SARS-COV-2 COVID-19 VACCINE - (MODERNA) 2021-11-01 00:00:00 Completed [facility] SARS-COV-2 COVID-19 VACCINE - (MODERNA) 2021-11-01 00:00:00 Completed [facility] SARS-COV-2 COVID-19 VACCINE - (MODERNA) 2021-11-01 00:00:00 Completed [facility] SARS-COV-2 COVID-19 VACCINE - (MODERNA) 2021-11-01 00:00:00 Completed [facility] SARS-COV-2 COVID-19 VACCINE - (MODERNA) 2021-11-01 00:00:00 Completed [facility] SARS-COV-2 COVID-19 VACCINE - (MODERNA) 2021-11-01 00:00:00 Completed [facility] SARS-COV-2 COVID-19 VACCINE - (MODERNA) 2021-06-08 00:00:00 Completed [facility] SARS-COV-2 COVID-19 VACCINE - (MODERNA) 2021-06-08 00:00:00 Completed [facility] SARS-COV-2 COVID-19 VACCINE - (MODERNA) 2021-06-08 00:00:00 Completed [facility] SARS-COV-2 COVID-19 VACCINE - (MODERNA) 2021-06-08 00:00:00 Completed [facility] SARS-COV-2 COVID-19 VACCINE - (MODERNA) 2021-06-08 00:00:00 Completed [facility] SARS-COV-2 COVID-19 VACCINE - (MODERNA) 2021-06-08 00:00:00 Completed [facility] SARS-COV-2 COVID-19 VACCINE - (MODERNA) 2021-06-08 00:00:00 Completed [facility] SARS-COV-2 COVID-19 VACCINE - (MODERNA) 2021-06-08 00:00:00 Completed [facility] SARS-COV-2 COVID-19 VACCINE - (MODERNA) 2021-06-08 00:00:00 Completed [facility] SARS-COV-2 COVID-19 VACCINE - (MODERNA) 2021-06-08 00:00:00 Completed [facility] SARS-COV-2 COVID-19 VACCINE - (MODERNA) 2021-06-08 00:00:00 Completed [facility] SARS-COV-2 COVID-19 VACCINE - (MODERNA) 2021-06-08 00:00:00 Completed [facility] SARS-COV-2 COVID-19 VACCINE - (MODERNA) 2021-06-08 00:00:00 Completed [facility] SARS-COV-2 COVID-19 VACCINE - (MODERNA) 2021-06-08 00:00:00 Completed [facility] SARS-COV-2 COVID-19 VACCINE - (MODERNA) 2021-06-08 00:00:00 Completed [facility] SARS-COV-2 COVID-19 VACCINE - (MODERNA) 2021-06-08 00:00:00 Completed [facility] SARS-COV-2 COVID-19 VACCINE - (MODERNA) 2021-06-08 00:00:00 Completed [facility] SARS-COV-2 COVID-19 VACCINE - (MODERNA) 2021-06-08 00:00:00 Completed [facility] SARS-COV-2 COVID-19 VACCINE - (MODERNA) 2021-06-08 00:00:00 Completed [facility] SARS-COV-2 COVID-19 VACCINE - (MODERNA) 2021-06-08 00:00:00 Completed [facility] SARS-COV-2 COVID-19 VACCINE - (MODERNA) 2021-06-08 00:00:00 Completed [facility] Influenza Virus Vaccine Quad .5 mL IM 6+ MO 2019-06-29 00:00:00 Completed [facility] Influenza Virus Vaccine Quad .5 mL IM 6+ MO 2019-06-29 00:00:00 Completed [facility] Influenza Virus Vaccine Quad .5 mL IM 6+ MO 2019-06-29 00:00:00 Completed [facility] Influenza Virus Vaccine Quad .5 mL IM 6+ MO 2019-06-29 00:00:00 Completed [facility] Influenza Virus Vaccine Quad .5 mL IM 6+ MO (FLUZONE/FLULAVAL/FL UARIX) 2019-06-29 00:00:00 Completed [facility] Influenza Virus Vaccine Quad .5 mL IM 6+ MO (FLUZONE/FLULAVAL/FL UARIX) 2019-06-29 00:00:00 Completed [facility] Influenza Virus Vaccine Quad .5 mL IM 6+ MO (FLUZONE/FLULAVAL/FL UARIX) 2019-06-29 00:00:00 Completed [facility] Influenza Virus Vaccine Quad .5 mL IM 6+ MO (FLUZONE/FLULAVAL/FL UARIX) 2019-06-29 00:00:00 Completed [facility] Influenza Virus Vaccine Quad .5 mL IM 6+ MO 2019-06-29 00:00:00 Completed [facility] Influenza Virus Vaccine Quad .5 mL IM 6+ MO 2019-06-29 00:00:00 Completed [facility] Influenza Virus Vaccine Quad .5 mL IM 6+ MO 2019-06-29 00:00:00 Completed [facility] Influenza Virus Vaccine Quad .5 mL IM 6+ MO 2019-06-29 00:00:00 Completed [facility] Influenza Virus Vaccine Quad .5 mL IM 6+ MO 2019-06-29 00:00:00 Completed [facility] Influenza Virus Vaccine Quad .5 mL IM 6+ MO 2019-06-29 00:00:00 Completed [facility] Influenza Virus Vaccine Quad .5 mL IM 6+ MO 2019-06-29 00:00:00 Completed [facility] Influenza Virus Vaccine Quad .5 mL IM 6+ MO 2019-06-29 00:00:00 Completed [facility] Influenza Virus Vaccine Quad .5 mL IM 6+ MO 2019-06-29 00:00:00 Completed [facility] Influenza Virus Vaccine Quad .5 mL IM 6+ MO 2019-06-29 00:00:00 Completed [facility] Influenza Virus Vaccine Quad .5 mL IM 6+ MO 2019-06-29 00:00:00 Completed [facility] Influenza Virus Vaccine Quad .5 mL IM 6+ MO 2019-06-29 00:00:00 Completed [facility] Influenza Virus Vaccine Quad .5 mL IM 6+ MO 2019-06-29 00:00:00 Completed [facility] Influenza Virus Vaccine Quad .5 mL IM 6+ MO 2019-06-29 00:00:00 Completed [facility] Influenza Virus Vaccine Quad .5 mL IM 6+ MO 2019-06-29 00:00:00 Completed [facility] Influenza Virus Vaccine Quad .5 mL IM 6+ MO 2019-06-29 00:00:00 Completed [facility] TDAP (ADACEL) VACCINE 2019-05-27 00:00:00 Completed [facility] TDAP (ADACEL) VACCINE 2019-05-27 00:00:00 Completed [facility] TDAP (ADACEL) VACCINE 2019-05-27 00:00:00 Completed [facility] TDAP (ADACEL) VACCINE 2019-05-27 00:00:00 Completed [facility] TDAP (ADACEL) VACCINE 2019-05-27 00:00:00 Completed [facility] TDAP (ADACEL) VACCINE 2019-05-27 00:00:00 Completed [facility] TDAP (ADACEL) VACCINE 2019-05-27 00:00:00 Completed [facility] TDAP (ADACEL) VACCINE 2019-05-27 00:00:00 Completed [facility] TDAP (ADACEL) VACCINE 2019-05-27 00:00:00 Completed [facility] TDAP (ADACEL) VACCINE 2019-05-27 00:00:00 Completed [facility] TDAP (ADACEL) VACCINE 2019-05-27 00:00:00 Completed [facility] TDAP (ADACEL) VACCINE 2019-05-27 00:00:00 Completed [facility] TDAP (ADACEL) VACCINE 2019-05-27 00:00:00 Completed [facility] TDAP (ADACEL) VACCINE 2019-05-27 00:00:00 Completed [facility] TDAP (ADACEL) VACCINE 2019-05-27 00:00:00 Completed [facility] TDAP (ADACEL) VACCINE 2019-05-27 00:00:00 Completed [facility] TDAP (ADACEL) VACCINE 2019-05-27 00:00:00 Completed [facility] TDAP (ADACEL) VACCINE 2019-05-27 00:00:00 Completed [facility] TDAP (ADACEL) VACCINE 2019-05-27 00:00:00 Completed [facility] TDAP (ADACEL) VACCINE 2019-05-27 00:00:00 Completed [facility] TDAP (ADACEL) VACCINE 2019-05-27 00:00:00 Completed [facility] TDAP (ADACEL) VACCINE 2019-05-27 00:00:00 Completed [facility] TDAP (ADACEL) VACCINE 2019-05-27 00:00:00 Completed [facility] TDAP (ADACEL) VACCINE 2019-05-27 00:00:00 Completed [facility] TDAP (ADACEL) VACCINE 2019-05-27 00:00:00 Completed [facility] TDAP (ADACEL) VACCINE 2019-04-01 00:00:00 Completed [facility] TDAP (ADACEL) VACCINE 2019-04-01 00:00:00 Completed [facility] TDAP (ADACEL) VACCINE 2019-04-01 00:00:00 Completed [facility] TDAP (ADACEL) VACCINE 2019-04-01 00:00:00 Completed [facility] TDAP (ADACEL) VACCINE 2019-04-01 00:00:00 Completed [facility] TDAP (ADACEL) VACCINE 2019-04-01 00:00:00 Completed [facility] TDAP (ADACEL) VACCINE 2019-04-01 00:00:00 Completed [facility] TDAP (ADACEL) VACCINE 2019-04-01 00:00:00 Completed [facility] TDAP (ADACEL) VACCINE 2019-04-01 00:00:00 Completed [facility] TDAP (ADACEL) VACCINE 2019-04-01 00:00:00 Completed [facility] TDAP (ADACEL) VACCINE 2019-04-01 00:00:00 Completed [facility] TDAP (ADACEL) VACCINE 2019-04-01 00:00:00 Completed [facility] TDAP (ADACEL) VACCINE 2019-04-01 00:00:00 Completed [facility] TDAP (ADACEL) VACCINE 2019-04-01 00:00:00 Completed [facility] TDAP (ADACEL) VACCINE 2019-04-01 00:00:00 Completed [facility] TDAP (ADACEL) VACCINE 2019-04-01 00:00:00 Completed [facility] TDAP (ADACEL) VACCINE 2019-04-01 00:00:00 Completed [facility] TDAP (ADACEL) VACCINE 2019-04-01 00:00:00 Completed [facility] TDAP (ADACEL) VACCINE 2019-04-01 00:00:00 Completed [facility] TDAP (ADACEL) VACCINE 2019-04-01 00:00:00 Completed [facility] TDAP (ADACEL) VACCINE 2019-04-01 00:00:00 Completed [facility] TDAP (ADACEL) VACCINE 2019-04-01 00:00:00 Completed [facility] TDAP (ADACEL) VACCINE 2019-04-01 00:00:00 Completed [facility] TDAP (ADACEL) VACCINE 2019-04-01 00:00:00 Completed [facility] TDAP (ADACEL) VACCINE 2019-04-01 00:00:00 Completed [facility] TDAP (ADACEL) VACCINE 2019-04-01 00:00:00 Completed [facility] TDAP (ADACEL) VACCINE 2019-04-01 00:00:00 Completed [facility] TDAP (ADACEL) VACCINE 2019-04-01 00:00:00 Completed [facility] TDAP (ADACEL) VACCINE 2019-04-01 00:00:00 Completed [facility] TDAP (ADACEL) VACCINE 2019-04-01 00:00:00 Completed [facility] TDAP (ADACEL) VACCINE 2019-04-01 00:00:00 Completed [facility] TDAP (ADACEL) VACCINE 2019-04-01 00:00:00 Completed [facility] TDAP (ADACEL) VACCINE 2019-04-01 00:00:00 Completed [facility] TDAP (ADACEL) VACCINE 2019-04-01 00:00:00 Completed [facility] TDAP (ADACEL) VACCINE 2019-04-01 00:00:00 Completed [facility] TDAP (ADACEL) VACCINE 2019-04-01 00:00:00 Completed [facility] TDAP (ADACEL) VACCINE 2019-04-01 00:00:00 Completed [facility] Influenza Virus Vaccine Quad .5 mL IM 6+ MO 2019-01-04 00:00:00 Completed [facility] Influenza Virus Vaccine Quad .5 mL IM 6+ MO 2019-01-04 00:00:00 Completed [facility] Influenza Virus Vaccine Quad .5 mL IM 6+ MO 2019-01-04 00:00:00 Completed [facility] Influenza Virus Vaccine Quad .5 mL IM 6+ MO 2019-01-04 00:00:00 Completed [facility] Influenza Virus Vaccine Quad .5 mL IM 6+ MO 2019-01-04 00:00:00 Completed [facility] Influenza Virus Vaccine Quad .5 mL IM 6+ MO (FLUZONE/FLULAVAL/FL UARIX) 2019-01-04 00:00:00 Completed [facility] Influenza Virus Vaccine Quad .5 mL IM 6+ MO (FLUZONE/FLULAVAL/FL UARIX) 2019-01-04 00:00:00 Completed [facility] Influenza Virus Vaccine Quad .5 mL IM 6+ MO (FLUZONE/FLULAVAL/FL UARIX) 2019-01-04 00:00:00 Completed [facility] Influenza Virus Vaccine Quad .5 mL IM 6+ MO (FLUZONE/FLULAVAL/FL UARIX) 2019-01-04 00:00:00 Completed [facility] Influenza Virus Vaccine Quad .5 mL IM 6+ MO 2019-01-04 00:00:00 Completed [facility] Influenza Virus Vaccine Quad .5 mL IM 6+ MO 2019-01-04 00:00:00 Completed [facility] Influenza Virus Vaccine Quad .5 mL IM 6+ MO 2019-01-04 00:00:00 Completed [facility] Influenza Virus Vaccine Quad .5 mL IM 6+ MO 2019-01-04 00:00:00 Completed [facility] Influenza Virus Vaccine Quad .5 mL IM 6+ MO 2019-01-04 00:00:00 Completed [facility] Influenza Virus Vaccine Quad .5 mL IM 6+ MO 2019-01-04 00:00:00 Completed [facility] Influenza Virus Vaccine Quad .5 mL IM 6+ MO 2019-01-04 00:00:00 Completed [facility] Influenza Virus Vaccine Quad .5 mL IM 6+ MO 2019-01-04 00:00:00 Completed [facility] Influenza Virus Vaccine Quad .5 mL IM 6+ MO 2019-01-04 00:00:00 Completed [facility] Influenza Virus Vaccine Quad .5 mL IM 6+ MO 2019-01-04 00:00:00 Completed [facility] Influenza Virus Vaccine Quad .5 mL IM 6+ MO 2019-01-04 00:00:00 Completed [facility] Influenza Virus Vaccine Quad .5 mL IM 6+ MO 2019-01-04 00:00:00 Completed [facility] Influenza Virus Vaccine Quad .5 mL IM 6+ MO 2019-01-04 00:00:00 Completed [facility] Influenza Virus Vaccine Quad .5 mL IM 6+ MO 2019-01-04 00:00:00 Completed [facility] Influenza Virus Vaccine Quad .5 mL IM 6+ MO 2019-01-04 00:00:00 Completed [facility] Influenza Virus Vaccine Quad .5 mL IM 6+ MO 2019-01-04 00:00:00 Completed [facility] Influenza Virus Vaccine Quad .5 mL IM 6+ MO 2019-01-04 00:00:00 Completed [facility] Influenza Virus Vaccine Quad .5 mL IM 6+ MO 2019-01-04 00:00:00 Completed [facility] Influenza Virus Vaccine Quad .5 mL IM 6+ MO 2019-01-04 00:00:00 Completed [facility] Influenza Virus Vaccine Quad .5 mL IM 6+ MO 2019-01-04 00:00:00 Completed [facility] Influenza Virus Vaccine Quad .5 mL IM 6+ MO 2019-01-04 00:00:00 Completed [facility] Influenza Virus Vaccine Quad .5 mL IM 6+ MO 2019-01-04 00:00:00 Completed [facility] Influenza Virus Vaccine Quad .5 mL IM 6+ MO 2019-01-04 00:00:00 Completed [facility] Influenza Virus Vaccine Quad .5 mL IM 6+ MO 2019-01-04 00:00:00 Completed [facility] Influenza Virus Vaccine Quad .5 mL IM 6+ MO 2019-01-04 00:00:00 Completed [facility] Influenza Virus Vaccine Quad .5 mL IM 6+ MO 2019-01-04 00:00:00 Completed [facility] Influenza Virus Vaccine Quad .5 mL IM 6+ MO 2019-01-04 00:00:00 Completed [facility] Influenza Virus Vaccine Quad .5 mL IM 6+ MO 2019-01-04 00:00:00 Completed [facility] HPV 2015-04-13 00:00:00 Completed [facility] Meningococcal Polysaccharide (groups A, C, Y and W-135) conjugate vaccine (MCV4P) 2015-04-13 00:00:00 Completed [facility] TDAP (ADACEL) VACCINE 2015-04-13 00:00:00 Completed [facility] HPV 2015-04-13 00:00:00 Completed [facility] Meningococcal Polysaccharide (groups A, C, Y and W-135) conjugate vaccine (MCV4P) 2015-04-13 00:00:00 Completed [facility] TDAP (ADACEL) VACCINE 2015-04-13 00:00:00 Completed [facility] HPV 2015-04-13 00:00:00 Completed [facility] HPV 2015-04-13 00:00:00 Completed [facility] Meningococcal Polysaccharide (groups A, C, Y and W-135) conjugate vaccine (MCV4P) 2015-04-13 00:00:00 Completed [facility] TDAP (ADACEL) VACCINE 2015-04-13 00:00:00 Completed [facility] Meningococcal Polysaccharide (groups A, C, Y and W-135) conjugate vaccine (MCV4P) 2015-04-13 00:00:00 Completed [facility] TDAP (ADACEL) VACCINE 2015-04-13 00:00:00 Completed [facility] HPV 2015-04-13 00:00:00 Completed [facility] Meningococcal Polysaccharide (groups A, C, Y and W-135) conjugate vaccine (MCV4P) 2015-04-13 00:00:00 Completed [facility] TDAP (ADACEL) VACCINE 2015-04-13 00:00:00 Completed [facility] HPV 2015-04-13 00:00:00 Completed [facility] Meningococcal Polysaccharide (groups A, C, Y and W-135) conjugate vaccine (MCV4P) 2015-04-13 00:00:00 Completed [facility] TDAP (ADACEL) VACCINE 2015-04-13 00:00:00 Completed [facility] HPV 2015-04-13 00:00:00 Completed [facility] Meningococcal Polysaccharide (groups A, C, Y and W-135) conjugate vaccine (MCV4P) 2015-04-13 00:00:00 Completed [facility] TDAP (ADACEL) VACCINE 2015-04-13 00:00:00 Completed [facility] HPV 2015-04-13 00:00:00 Completed [facility] Meningococcal Polysaccharide (groups A, C, Y and W-135) conjugate vaccine (MCV4P) 2015-04-13 00:00:00 Completed [facility] TDAP (ADACEL) VACCINE 2015-04-13 00:00:00 Completed [facility] HPV 2015-04-13 00:00:00 Completed [facility] Meningococcal Polysaccharide (groups A, C, Y and W-135) conjugate vaccine (MCV4P) 2015-04-13 00:00:00 Completed [facility] TDAP (ADACEL) VACCINE 2015-04-13 00:00:00 Completed [facility] HPV 2015-04-13 00:00:00 Completed [facility] Meningococcal Polysaccharide (groups A, C, Y and W-135) conjugate vaccine (MCV4P) 2015-04-13 00:00:00 Completed [facility] TDAP (ADACEL) VACCINE 2015-04-13 00:00:00 Completed [facility] HPV 2015-04-13 00:00:00 Completed [facility] Meningococcal Polysaccharide (groups A, C, Y and W-135) conjugate vaccine (MCV4P) 2015-04-13 00:00:00 Completed [facility] TDAP (ADACEL) VACCINE 2015-04-13 00:00:00 Completed [facility] HPV 2015-04-13 00:00:00 Completed [facility] Meningococcal Polysaccharide (groups A, C, Y and W-135) conjugate vaccine (MCV4P) 2015-04-13 00:00:00 Completed [facility] TDAP (ADACEL) VACCINE 2015-04-13 00:00:00 Completed [facility] HPV 2015-04-13 00:00:00 Completed [facility] Meningococcal Polysaccharide (groups A, C, Y and W-135) conjugate vaccine (MCV4P) 2015-04-13 00:00:00 Completed [facility] TDAP (ADACEL) VACCINE 2015-04-13 00:00:00 Completed [facility] HPV 2015-04-13 00:00:00 Completed [facility] Meningococcal Polysaccharide (groups A, C, Y and W-135) conjugate vaccine (MCV4P) 2015-04-13 00:00:00 Completed [facility] TDAP (ADACEL) VACCINE 2015-04-13 00:00:00 Completed [facility] HPV 2015-04-13 00:00:00 Completed [facility] Meningococcal Polysaccharide (groups A, C, Y and W-135) conjugate vaccine (MCV4P) 2015-04-13 00:00:00 Completed [facility] TDAP (ADACEL) VACCINE 2015-04-13 00:00:00 Completed [facility] HPV 2015-04-13 00:00:00 Completed [facility] Meningococcal Polysaccharide (groups A, C, Y and W-135) conjugate vaccine (MCV4P) 2015-04-13 00:00:00 Completed [facility] TDAP (ADACEL) VACCINE 2015-04-13 00:00:00 Completed [facility] HPV 2015-04-13 00:00:00 Completed [facility] Meningococcal Polysaccharide (groups A, C, Y and W-135) conjugate vaccine (MCV4P) 2015-04-13 00:00:00 Completed [facility] TDAP (ADACEL) VACCINE 2015-04-13 00:00:00 Completed [facility] HPV 2015-04-13 00:00:00 Completed [facility] Meningococcal Polysaccharide (groups A, C, Y and W-135) conjugate vaccine (MCV4P) 2015-04-13 00:00:00 Completed [facility] TDAP (ADACEL) VACCINE 2015-04-13 00:00:00 Completed [facility] HPV 2015-04-13 00:00:00 Completed [facility] Meningococcal Polysaccharide (groups A, C, Y and W-135) conjugate vaccine (MCV4P) 2015-04-13 00:00:00 Completed [facility] HPV 2015-04-13 00:00:00 Completed [facility] Meningococcal Polysaccharide (groups A, C, Y and W-135) conjugate vaccine (MCV4P) 2015-04-13 00:00:00 Completed [facility] TDAP (ADACEL) VACCINE 2015-04-13 00:00:00 Completed [facility] TDAP (ADACEL) VACCINE 2015-04-13 00:00:00 Completed [facility] HPV 2015-04-13 00:00:00 Completed [facility] Meningococcal Polysaccharide (groups A, C, Y and W-135) conjugate vaccine (MCV4P) 2015-04-13 00:00:00 Completed [facility] TDAP (ADACEL) VACCINE 2015-04-13 00:00:00 Completed [facility] HPV 2015-04-13 00:00:00 Completed [facility] Meningococcal Polysaccharide (groups A, C, Y and W-135) conjugate vaccine (MCV4P) 2015-04-13 00:00:00 Completed [facility] TDAP (ADACEL) VACCINE 2015-04-13 00:00:00 Completed [facility] HPV 2015-04-13 00:00:00 Completed [facility] Meningococcal Polysaccharide (groups A, C, Y and W-135) conjugate vaccine (MCV4P) 2015-04-13 00:00:00 Completed [facility] TDAP (ADACEL) VACCINE 2015-04-13 00:00:00 Completed [facility] HPV 2015-04-13 00:00:00 Completed [facility] Meningococcal Polysaccharide (groups A, C, Y and W-135) conjugate vaccine (MCV4P) 2015-04-13 00:00:00 Completed [facility] TDAP (ADACEL) VACCINE 2015-04-13 00:00:00 Completed [facility] HPV 2015-04-13 00:00:00 Completed [facility] Meningococcal Polysaccharide (groups A, C, Y and W-135) conjugate vaccine (MCV4P) 2015-04-13 00:00:00 Completed [facility] TDAP (ADACEL) VACCINE 2015-04-13 00:00:00 Completed [facility] HPV 2015-04-13 00:00:00 Completed [facility] Meningococcal Polysaccharide (groups A, C, Y and W-135) conjugate vaccine (MCV4P) 2015-04-13 00:00:00 Completed [facility] TDAP (ADACEL) VACCINE 2015-04-13 00:00:00 Completed [facility] HPV 2015-04-13 00:00:00 Completed [facility] Meningococcal Polysaccharide (groups A, C, Y and W-135) conjugate vaccine (MCV4P) 2015-04-13 00:00:00 Completed [facility] TDAP (ADACEL) VACCINE 2015-04-13 00:00:00 Completed [facility] HPV 2015-04-13 00:00:00 Completed [facility] Meningococcal Polysaccharide (groups A, C, Y and W-135) conjugate vaccine (MCV4P) 2015-04-13 00:00:00 Completed [facility] HPV 2015-04-13 00:00:00 Completed [facility] Meningococcal Polysaccharide (groups A, C, Y and W-135) conjugate vaccine (MCV4P) 2015-04-13 00:00:00 Completed [facility] TDAP (ADACEL) VACCINE 2015-04-13 00:00:00 Completed [facility] TDAP (ADACEL) VACCINE 2015-04-13 00:00:00 Completed [facility] HPV 2015-04-13 00:00:00 Completed [facility] Meningococcal Polysaccharide (groups A, C, Y and W-135) conjugate vaccine (MCV4P) 2015-04-13 00:00:00 Completed [facility] TDAP (ADACEL) VACCINE 2015-04-13 00:00:00 Completed [facility] HPV 2015-04-13 00:00:00 Completed [facility] Meningococcal Polysaccharide (groups A, C, Y and W-135) conjugate vaccine (MCV4P) 2015-04-13 00:00:00 Completed [facility] TDAP (ADACEL) VACCINE 2015-04-13 00:00:00 Completed [facility] HPV 2015-04-13 00:00:00 Completed [facility] Meningococcal Polysaccharide (groups A, C, Y and W-135) conjugate vaccine (MCV4P) 2015-04-13 00:00:00 Completed [facility] TDAP (ADACEL) VACCINE 2015-04-13 00:00:00 Completed [facility] HPV 2015-04-13 00:00:00 Completed [facility] Meningococcal Polysaccharide (groups A, C, Y and W-135) conjugate vaccine (MCV4P) 2015-04-13 00:00:00 Completed [facility] TDAP (ADACEL) VACCINE 2015-04-13 00:00:00 Completed [facility] HPV 2015-04-13 00:00:00 Completed [facility] Meningococcal Polysaccharide (groups A, C, Y and W-135) conjugate vaccine (MCV4P) 2015-04-13 00:00:00 Completed [facility] TDAP (ADACEL) VACCINE 2015-04-13 00:00:00 Completed [facility] HPV 2015-04-13 00:00:00 Completed [facility] Meningococcal Polysaccharide (groups A, C, Y and W-135) conjugate vaccine (MCV4P) 2015-04-13 00:00:00 Completed [facility] TDAP (ADACEL) VACCINE 2015-04-13 00:00:00 Completed [facility] HPV 2015-04-13 00:00:00 Completed [facility] Meningococcal Polysaccharide (groups A, C, Y and W-135) conjugate vaccine (MCV4P) 2015-04-13 00:00:00 Completed [facility] TDAP (ADACEL) VACCINE 2015-04-13 00:00:00 Completed [facility] HPV 2015-04-13 00:00:00 Completed [facility] Meningococcal Polysaccharide (groups A, C, Y and W-135) conjugate vaccine (MCV4P) 2015-04-13 00:00:00 Completed [facility] TDAP (ADACEL) VACCINE 2015-04-13 00:00:00 Completed [facility] HPV 2012-06-29 00:00:00 Completed [facility] HPV 2012-06-29 00:00:00 Completed [facility] HPV 2012-06-29 00:00:00 Completed [facility] HPV 2012-06-29 00:00:00 Completed [facility] HPV 2012-06-29 00:00:00 Completed [facility] HPV 2012-06-29 00:00:00 Completed [facility] HPV 2012-06-29 00:00:00 Completed [facility] HPV 2012-06-29 00:00:00 Completed [facility] HPV 2012-06-29 00:00:00 Completed [facility] HPV 2012-06-29 00:00:00 Completed [facility] HPV 2012-06-29 00:00:00 Completed [facility] HPV 2012-06-29 00:00:00 Completed [facility] HPV 2012-06-29 00:00:00 Completed [facility] HPV 2012-06-29 00:00:00 Completed [facility] HPV 2012-06-29 00:00:00 Completed [facility] HPV 2012-06-29 00:00:00 Completed [facility] HPV 2012-06-29 00:00:00 Completed [facility] HPV 2012-06-29 00:00:00 Completed [facility] HPV 2012-06-29 00:00:00 Completed [facility] HPV 2012-06-29 00:00:00 Completed [facility] HPV 2012-06-29 00:00:00 Completed [facility] HPV 2012-06-29 00:00:00 Completed [facility] HPV 2012-06-29 00:00:00 Completed [facility] HPV 2012-06-29 00:00:00 Completed [facility] Tetanus/Diptheria 2009-12-12 00:00:00 Completed [facility] Meningococcal Polysaccharide (groups A, C, Y and W-135) conjugate vaccine (MCV4P) 2009-12-12 00:00:00 Completed [facility] Varicella (varivax)(chicken pox) 2009-12-12 00:00:00 Completed [facility] HEPATITIS A 2009-12-12 00:00:00 Completed [facility] Tetanus/Diptheria 2009-12-12 00:00:00 Completed [facility] Meningococcal Polysaccharide (groups A, C, Y and W-135) conjugate vaccine (MCV4P) 2009-12-12 00:00:00 Completed [facility] Varicella (varivax)(chicken pox) 2009-12-12 00:00:00 Completed [facility] HEPATITIS A 2009-12-12 00:00:00 Completed [facility] Tetanus/Diptheria 2009-12-12 00:00:00 Completed [facility] Meningococcal Polysaccharide (groups A, C, Y and W-135) conjugate vaccine (MCV4P) 2009-12-12 00:00:00 Completed [facility] Varicella (varivax)(chicken pox) 2009-12-12 00:00:00 Completed [facility] HEPATITIS A 2009-12-12 00:00:00 Completed [facility] Tetanus/Diptheria 2009-12-12 00:00:00 Completed [facility] Meningococcal Polysaccharide (groups A, C, Y and W-135) conjugate vaccine (MCV4P) 2009-12-12 00:00:00 Completed [facility] Varicella (varivax)(chicken pox) 2009-12-12 00:00:00 Completed [facility] HEPATITIS A 2009-12-12 00:00:00 Completed [facility] Tetanus/Diptheria 2009-12-12 00:00:00 Completed [facility] Meningococcal Polysaccharide (groups A, C, Y and W-135) conjugate vaccine (MCV4P) 2009-12-12 00:00:00 Completed [facility] Varicella (varivax)(chicken pox) 2009-12-12 00:00:00 Completed [facility] HEPATITIS A 2009-12-12 00:00:00 Completed [facility] Tetanus/Diptheria 2009-12-12 00:00:00 Completed [facility] Meningococcal Polysaccharide (groups A, C, Y and W-135) conjugate vaccine (MCV4P) 2009-12-12 00:00:00 Completed [facility] Varicella (varivax)(chicken pox) 2009-12-12 00:00:00 Completed [facility] HEPATITIS A 2009-12-12 00:00:00 Completed [facility] Tetanus/Diptheria 2009-12-12 00:00:00 Completed [facility] Meningococcal Polysaccharide (groups A, C, Y and W-135) conjugate vaccine (MCV4P) 2009-12-12 00:00:00 Completed [facility] Varicella (varivax)(chicken pox) 2009-12-12 00:00:00 Completed [facility] HEPATITIS A 2009-12-12 00:00:00 Completed [facility] Tetanus/Diptheria 2009-12-12 00:00:00 Completed [facility] Meningococcal Polysaccharide (groups A, C, Y and W-135) conjugate vaccine (MCV4P) 2009-12-12 00:00:00 Completed [facility] Varicella (varivax)(chicken pox) 2009-12-12 00:00:00 Completed [facility] HEPATITIS A 2009-12-12 00:00:00 Completed [facility] Tetanus/Diptheria 2009-12-12 00:00:00 Completed [facility] Meningococcal Polysaccharide (groups A, C, Y and W-135) conjugate vaccine (MCV4P) 2009-12-12 00:00:00 Completed [facility] Varicella (varivax)(chicken pox) 2009-12-12 00:00:00 Completed [facility] Meningococcal Polysaccharide (groups A, C, Y and W-135) conjugate vaccine (MCV4P) 2009-12-12 00:00:00 Completed [facility] Varicella (varivax)(chicken pox) 2009-12-12 00:00:00 Completed [facility] Meningococcal Polysaccharide (groups A, C, Y and W-135) conjugate vaccine (MCV4P) 2009-12-12 00:00:00 Completed [facility] Varicella (varivax)(chicken pox) 2009-12-12 00:00:00 Completed [facility] Meningococcal Polysaccharide (groups A, C, Y and W-135) conjugate vaccine (MCV4P) 2009-12-12 00:00:00 Completed [facility] Varicella (varivax)(chicken pox) 2009-12-12 00:00:00 Completed [facility] HEPATITIS A 2009-12-12 00:00:00 Completed [facility] Tetanus/Diptheria 2009-12-12 00:00:00 Completed [facility] Meningococcal Polysaccharide (groups A, C, Y and W-135) conjugate vaccine (MCV4P) 2009-12-12 00:00:00 Completed [facility] Varicella (varivax)(chicken pox) 2009-12-12 00:00:00 Completed [facility] HEPATITIS A 2009-12-12 00:00:00 Completed [facility] Tetanus/Diptheria 2009-12-12 00:00:00 Completed [facility] Meningococcal Polysaccharide (groups A, C, Y and W-135) conjugate vaccine (MCV4P) 2009-12-12 00:00:00 Completed [facility] Varicella (varivax)(chicken pox) 2009-12-12 00:00:00 Completed [facility] HEPATITIS A 2009-12-12 00:00:00 Completed [facility] Tetanus/Diptheria 2009-12-12 00:00:00 Completed [facility] Meningococcal Polysaccharide (groups A, C, Y and W-135) conjugate vaccine (MCV4P) 2009-12-12 00:00:00 Completed [facility] Varicella (varivax)(chicken pox) 2009-12-12 00:00:00 Completed [facility] HEPATITIS A 2009-12-12 00:00:00 Completed [facility] Tetanus/Diptheria 2009-12-12 00:00:00 Completed [facility] Meningococcal Polysaccharide (groups A, C, Y and W-135) conjugate vaccine (MCV4P) 2009-12-12 00:00:00 Completed [facility] Varicella (varivax)(chicken pox) 2009-12-12 00:00:00 Completed [facility] HEPATITIS A 2009-12-12 00:00:00 Completed [facility] Tetanus/Diptheria 2009-12-12 00:00:00 Completed [facility] Meningococcal Polysaccharide (groups A, C, Y and W-135) conjugate vaccine (MCV4P) 2009-12-12 00:00:00 Completed [facility] Varicella (varivax)(chicken pox) 2009-12-12 00:00:00 Completed [facility] HEPATITIS A 2009-12-12 00:00:00 Completed [facility] Tetanus/Diptheria 2009-12-12 00:00:00 Completed [facility] Meningococcal Polysaccharide (groups A, C, Y and W-135) conjugate vaccine (MCV4P) 2009-12-12 00:00:00 Completed [facility] Varicella (varivax)(chicken pox) 2009-12-12 00:00:00 Completed [facility] HEPATITIS A 2009-12-12 00:00:00 Completed [facility] Tetanus/Diptheria 2009-12-12 00:00:00 Completed [facility] Meningococcal Polysaccharide (groups A, C, Y and W-135) conjugate vaccine (MCV4P) 2009-12-12 00:00:00 Completed [facility] Varicella (varivax)(chicken pox) 2009-12-12 00:00:00 Completed [facility] HEPATITIS A 2009-12-12 00:00:00 Completed [facility] Tetanus/Diptheria 2009-12-12 00:00:00 Completed [facility] Meningococcal Polysaccharide (groups A, C, Y and W-135) conjugate vaccine (MCV4P) 2009-12-12 00:00:00 Completed [facility] Varicella (varivax)(chicken pox) 2009-12-12 00:00:00 Completed [facility] HEPATITIS A 2009-12-12 00:00:00 Completed [facility] Tetanus/Diptheria 2009-12-12 00:00:00 Completed [facility] Meningococcal Polysaccharide (groups A, C, Y and W-135) conjugate vaccine (MCV4P) 2009-12-12 00:00:00 Completed [facility] Varicella (varivax)(chicken pox) 2009-12-12 00:00:00 Completed [facility] HEPATITIS A 2009-12-12 00:00:00 Completed [facility] Tetanus/Diptheria 2009-12-12 00:00:00 Completed [facility] Meningococcal Polysaccharide (groups A, C, Y and W-135) conjugate vaccine (MCV4P) 2009-12-12 00:00:00 Completed [facility] Varicella (varivax)(chicken pox) 2009-12-12 00:00:00 Completed [facility] HEPATITIS A 2009-12-12 00:00:00 Completed [facility] Tetanus/Diptheria 2009-12-12 00:00:00 Completed [facility] Meningococcal Polysaccharide (groups A, C, Y and W-135) conjugate vaccine (MCV4P) 2009-12-12 00:00:00 Completed [facility] Varicella (varivax)(chicken pox) 2009-12-12 00:00:00 Completed [facility] HEPATITIS A 2009-12-12 00:00:00 Completed [facility] Tetanus/Diptheria 2009-12-12 00:00:00 Completed [facility] Meningococcal Polysaccharide (groups A, C, Y and W-135) conjugate vaccine (MCV4P) 2009-12-12 00:00:00 Completed [facility] Varicella (varivax)(chicken pox) 2009-12-12 00:00:00 Completed [facility] HEPATITIS A 2009-12-12 00:00:00 Completed [facility] DTaP, Unspecified Formulation 2003-04-28 00:00:00 Completed [facility] MMR 2003-04-28 00:00:00 Completed [facility] IPV 2003-04-28 00:00:00 Completed [facility] DTaP, Unspecified Formulation 2003-04-28 00:00:00 Completed [facility] MMR 2003-04-28 00:00:00 Completed [facility] IPV 2003-04-28 00:00:00 Completed [facility] DTaP, Unspecified Formulation 2003-04-28 00:00:00 Completed [facility] MMR 2003-04-28 00:00:00 Completed [facility] IPV 2003-04-28 00:00:00 Completed [facility] DTaP, Unspecified Formulation 2003-04-28 00:00:00 Completed [facility] MMR 2003-04-28 00:00:00 Completed [facility] IPV 2003-04-28 00:00:00 Completed [facility] DTaP, Unspecified Formulation 2003-04-28 00:00:00 Completed [facility] MMR 2003-04-28 00:00:00 Completed [facility] IPV 2003-04-28 00:00:00 Completed [facility] DTaP, Unspecified Formulation 2003-04-28 00:00:00 Completed [facility] MMR 2003-04-28 00:00:00 Completed [facility] IPV 2003-04-28 00:00:00 Completed [facility] DTaP, Unspecified Formulation 2003-04-28 00:00:00 Completed [facility] MMR 2003-04-28 00:00:00 Completed [facility] IPV 2003-04-28 00:00:00 Completed [facility] DTaP, Unspecified Formulation 2003-04-28 00:00:00 Completed [facility] MMR 2003-04-28 00:00:00 Completed [facility] IPV 2003-04-28 00:00:00 Completed [facility] DTaP, Unspecified Formulation 2003-04-28 00:00:00 Completed [facility] MMR 2003-04-28 00:00:00 Completed [facility] IPV 2003-04-28 00:00:00 Completed [facility] DTaP, Unspecified Formulation 2003-04-28 00:00:00 Completed [facility] MMR 2003-04-28 00:00:00 Completed [facility] IPV 2003-04-28 00:00:00 Completed [facility] DTaP, Unspecified Formulation 2003-04-28 00:00:00 Completed [facility] MMR 2003-04-28 00:00:00 Completed [facility] IPV 2003-04-28 00:00:00 Completed [facility] DTaP, Unspecified Formulation 2003-04-28 00:00:00 Completed [facility] MMR 2003-04-28 00:00:00 Completed [facility] IPV 2003-04-28 00:00:00 Completed [facility] DTaP, Unspecified Formulation 2003-04-28 00:00:00 Completed [facility] MMR 2003-04-28 00:00:00 Completed [facility] IPV 2003-04-28 00:00:00 Completed [facility] DTaP, Unspecified Formulation 2003-04-28 00:00:00 Completed [facility] MMR 2003-04-28 00:00:00 Completed [facility] IPV 2003-04-28 00:00:00 Completed [facility] DTaP, Unspecified Formulation 2003-04-28 00:00:00 Completed [facility] MMR 2003-04-28 00:00:00 Completed [facility] IPV 2003-04-28 00:00:00 Completed [facility] DTaP, Unspecified Formulation 2003-04-28 00:00:00 Completed [facility] MMR 2003-04-28 00:00:00 Completed [facility] IPV 2003-04-28 00:00:00 Completed [facility] DTaP, Unspecified Formulation 2003-04-28 00:00:00 Completed [facility] MMR 2003-04-28 00:00:00 Completed [facility] IPV 2003-04-28 00:00:00 Completed [facility] DTaP, Unspecified Formulation 2003-04-28 00:00:00 Completed [facility] MMR 2003-04-28 00:00:00 Completed [facility] IPV 2003-04-28 00:00:00 Completed [facility] DTaP, Unspecified Formulation 2003-04-28 00:00:00 Completed [facility] MMR 2003-04-28 00:00:00 Completed [facility] IPV 2003-04-28 00:00:00 Completed [facility] DTaP, Unspecified Formulation 2003-04-28 00:00:00 Completed [facility] MMR 2003-04-28 00:00:00 Completed [facility] IPV 2003-04-28 00:00:00 Completed [facility] DTaP, Unspecified Formulation 2003-04-28 00:00:00 Completed [facility] MMR 2003-04-28 00:00:00 Completed [facility] IPV 2003-04-28 00:00:00 Completed [facility] HIB 4 Dose Schedule 2002-11-11 00:00:00 Completed [facility] Hep B, Adol or Pedi Dosage 2002-11-11 00:00:00 Completed [facility] MMR 2002-11-11 00:00:00 Completed [facility] DTaP, Unspecified Formulation 2002-11-11 00:00:00 Completed [facility] Polio (IPV/OPV) 2002-11-11 00:00:00 Completed [facility] IPV 2002-11-11 00:00:00 Completed [facility] Varicella (varivax)(chicken pox) 2002-11-11 00:00:00 Completed [facility] DTAP 2002-11-11 00:00:00 Completed [facility] Hep B, Adol or Pedi Dosage 2002-11-11 00:00:00 Completed [facility] HIB 4 Dose Schedule 2002-11-11 00:00:00 Completed [facility] DTaP, Unspecified Formulation 2002-11-11 00:00:00 Completed [facility] Polio (IPV/OPV) 2002-11-11 00:00:00 Completed [facility] IPV 2002-11-11 00:00:00 Completed [facility] MMR 2002-11-11 00:00:00 Completed [facility] Varicella (varivax)(chicken pox) 2002-11-11 00:00:00 Completed [facility] DTaP, Unspecified Formulation 2002-11-11 00:00:00 Completed [facility] IPV 2002-11-11 00:00:00 Completed [facility] DTaP, Unspecified Formulation 2002-11-11 00:00:00 Completed [facility] IPV 2002-11-11 00:00:00 Completed [facility] DTaP, Unspecified Formulation 2002-11-11 00:00:00 Completed [facility] IPV 2002-11-11 00:00:00 Completed [facility] DTAP 2002-11-11 00:00:00 Completed [facility] HIB 4 Dose Schedule 2002-11-11 00:00:00 Completed [facility] Hep B, Adol or Pedi Dosage 2002-11-11 00:00:00 Completed [facility] DTaP, Unspecified Formulation 2002-11-11 00:00:00 Completed [facility] MMR 2002-11-11 00:00:00 Completed [facility] IPV 2002-11-11 00:00:00 Completed [facility] Polio (IPV/OPV) 2002-11-11 00:00:00 Completed [facility] Varicella (varivax)(chicken pox) 2002-11-11 00:00:00 Completed [facility] DTAP 2002-11-11 00:00:00 Completed [facility] Hep B, Adol or Pedi Dosage 2002-11-11 00:00:00 Completed [facility] DTaP, Unspecified Formulation 2002-11-11 00:00:00 Completed [facility] HIB 4 Dose Schedule 2002-11-11 00:00:00 Completed [facility] IPV 2002-11-11 00:00:00 Completed [facility] Polio (IPV/OPV) 2002-11-11 00:00:00 Completed [facility] MMR 2002-11-11 00:00:00 Completed [facility] DTaP, Unspecified Formulation 2002-11-11 00:00:00 Completed [facility] Varicella (varivax)(chicken pox) 2002-11-11 00:00:00 Completed [facility] IPV 2002-11-11 00:00:00 Completed [facility] DTAP 2002-11-11 00:00:00 Completed [facility] HIB 4 Dose Schedule 2002-11-11 00:00:00 Completed [facility] Hep B, Adol or Pedi Dosage 2002-11-11 00:00:00 Completed [facility] MMR 2002-11-11 00:00:00 Completed [facility] Polio (IPV/OPV) 2002-11-11 00:00:00 Completed [facility] Varicella (varivax)(chicken pox) 2002-11-11 00:00:00 Completed [facility] DTAP 2002-11-11 00:00:00 Completed [facility] Hep B, Adol or Pedi Dosage 2002-11-11 00:00:00 Completed [facility] HIB 4 Dose Schedule 2002-11-11 00:00:00 Completed [facility] Polio (IPV/OPV) 2002-11-11 00:00:00 Completed [facility] MMR 2002-11-11 00:00:00 Completed [facility] Varicella (varivax)(chicken pox) 2002-11-11 00:00:00 Completed [facility] DTAP 2002-11-11 00:00:00 Completed [facility] HIB 4 Dose Schedule 2002-11-11 00:00:00 Completed [facility] Hep B, Adol or Pedi Dosage 2002-11-11 00:00:00 Completed [facility] MMR 2002-11-11 00:00:00 Completed [facility] Polio (IPV/OPV) 2002-11-11 00:00:00 Completed [facility] Varicella (varivax)(chicken pox) 2002-11-11 00:00:00 Completed [facility] DTAP 2002-11-11 00:00:00 Completed [facility] Hep B, Adol or Pedi Dosage 2002-11-11 00:00:00 Completed [facility] HIB 4 Dose Schedule 2002-11-11 00:00:00 Completed [facility] Polio (IPV/OPV) 2002-11-11 00:00:00 Completed [facility] MMR 2002-11-11 00:00:00 Completed [facility] Varicella (varivax)(chicken pox) 2002-11-11 00:00:00 Completed [facility] DTAP 2002-11-11 00:00:00 Completed [facility] HIB 4 Dose Schedule 2002-11-11 00:00:00 Completed [facility] Hep B, Adol or Pedi Dosage 2002-11-11 00:00:00 Completed [facility] MMR 2002-11-11 00:00:00 Completed [facility] Polio (IPV/OPV) 2002-11-11 00:00:00 Completed [facility] Varicella (varivax)(chicken pox) 2002-11-11 00:00:00 Completed [facility] DTAP 2002-11-11 00:00:00 Completed [facility] Hep B, Adol or Pedi Dosage 2002-11-11 00:00:00 Completed [facility] HIB 4 Dose Schedule 2002-11-11 00:00:00 Completed [facility] Polio (IPV/OPV) 2002-11-11 00:00:00 Completed [facility] MMR 2002-11-11 00:00:00 Completed [facility] Varicella (varivax)(chicken pox) 2002-11-11 00:00:00 Completed [facility] DTAP 2002-11-11 00:00:00 Completed [facility] HIB 4 Dose Schedule 2002-11-11 00:00:00 Completed [facility] Hep B, Adol or Pedi Dosage 2002-11-11 00:00:00 Completed [facility] MMR 2002-11-11 00:00:00 Completed [facility] Polio (IPV/OPV) 2002-11-11 00:00:00 Completed [facility] Varicella (varivax)(chicken pox) 2002-11-11 00:00:00 Completed [facility] DTAP 2002-11-11 00:00:00 Completed [facility] Hep B, Adol or Pedi Dosage 2002-11-11 00:00:00 Completed [facility] HIB 4 Dose Schedule 2002-11-11 00:00:00 Completed [facility] Polio (IPV/OPV) 2002-11-11 00:00:00 Completed [facility] MMR 2002-11-11 00:00:00 Completed [facility] Varicella (varivax)(chicken pox) 2002-11-11 00:00:00 Completed [facility] DTAP 2002-11-11 00:00:00 Completed [facility] DTAP 2002-11-11 00:00:00 Completed [facility] HIB 4 Dose Schedule 2002-11-11 00:00:00 Completed [facility] HIB 4 Dose Schedule 2002-11-11 00:00:00 Completed [facility] Hep B, Adol or Pedi Dosage 2002-11-11 00:00:00 Completed [facility] MMR 2002-11-11 00:00:00 Completed [facility] Polio (IPV/OPV) 2002-11-11 00:00:00 Completed [facility] Varicella (varivax)(chicken pox) 2002-11-11 00:00:00 Completed [facility] DTAP 2002-11-11 00:00:00 Completed [facility] Hep B, Adol or Pedi Dosage 2002-11-11 00:00:00 Completed [facility] HIB 4 Dose Schedule 2002-11-11 00:00:00 Completed [facility] Polio (IPV/OPV) 2002-11-11 00:00:00 Completed [facility] MMR 2002-11-11 00:00:00 Completed [facility] Hep B, Adol or Pedi Dosage 2002-11-11 00:00:00 Completed [facility] Varicella (varivax)(chicken pox) 2002-11-11 00:00:00 Completed [facility] MMR 2002-11-11 00:00:00 Completed [facility] DTAP 2002-11-11 00:00:00 Completed [facility] HIB 4 Dose Schedule 2002-11-11 00:00:00 Completed [facility] Hep B, Adol or Pedi Dosage 2002-11-11 00:00:00 Completed [facility] MMR 2002-11-11 00:00:00 Completed [facility] Polio (IPV/OPV) 2002-11-11 00:00:00 Completed [facility] Varicella (varivax)(chicken pox) 2002-11-11 00:00:00 Completed [facility] Polio (IPV/OPV) 2002-11-11 00:00:00 Completed [facility] DTAP 2002-11-11 00:00:00 Completed [facility] Hep B, Adol or Pedi Dosage 2002-11-11 00:00:00 Completed [facility] HIB 4 Dose Schedule 2002-11-11 00:00:00 Completed [facility] Polio (IPV/OPV) 2002-11-11 00:00:00 Completed [facility] MMR 2002-11-11 00:00:00 Completed [facility] Varicella (varivax)(chicken pox) 2002-11-11 00:00:00 Completed [facility] Varicella (varivax)(chicken pox) 2002-11-11 00:00:00 Completed [facility] DTAP 2002-11-11 00:00:00 Completed [facility] DTAP 2002-11-11 00:00:00 Completed [facility] HIB 4 Dose Schedule 2002-11-11 00:00:00 Completed [facility] Hep B, Adol or Pedi Dosage 2002-11-11 00:00:00 Completed [facility] MMR 2002-11-11 00:00:00 Completed [facility] Polio (IPV/OPV) 2002-11-11 00:00:00 Completed [facility] Varicella (varivax)(chicken pox) 2002-11-11 00:00:00 Completed [facility] DTAP 2002-11-11 00:00:00 Completed [facility] Hep B, Adol or Pedi Dosage 2002-11-11 00:00:00 Completed [facility] HIB 4 Dose Schedule 2002-11-11 00:00:00 Completed [facility] Hep B, Adol or Pedi Dosage 2002-11-11 00:00:00 Completed [facility] Polio (IPV/OPV) 2002-11-11 00:00:00 Completed [facility] MMR 2002-11-11 00:00:00 Completed [facility] Varicella (varivax)(chicken pox) 2002-11-11 00:00:00 Completed [facility] HIB 4 Dose Schedule 2002-11-11 00:00:00 Completed [facility] DTAP 2002-11-11 00:00:00 Completed [facility] HIB 4 Dose Schedule 2002-11-11 00:00:00 Completed [facility] Hep B, Adol or Pedi Dosage 2002-11-11 00:00:00 Completed [facility] MMR 2002-11-11 00:00:00 Completed [facility] Polio (IPV/OPV) 2002-11-11 00:00:00 Completed [facility] Varicella (varivax)(chicken pox) 2002-11-11 00:00:00 Completed [facility] Polio (IPV/OPV) 2002-11-11 00:00:00 Completed [facility] DTAP 2002-11-11 00:00:00 Completed [facility] Hep B, Adol or Pedi Dosage 2002-11-11 00:00:00 Completed [facility] HIB 4 Dose Schedule 2002-11-11 00:00:00 Completed [facility] Polio (IPV/OPV) 2002-11-11 00:00:00 Completed [facility] MMR 2002-11-11 00:00:00 Completed [facility] Varicella (varivax)(chicken pox) 2002-11-11 00:00:00 Completed [facility] MMR 2002-11-11 00:00:00 Completed [facility] Varicella (varivax)(chicken pox) 2002-11-11 00:00:00 Completed [facility] DTAP 2002-11-11 00:00:00 Completed [facility] HIB 4 Dose Schedule 2002-11-11 00:00:00 Completed [facility] Hep B, Adol or Pedi Dosage 2002-11-11 00:00:00 Completed [facility] MMR 2002-11-11 00:00:00 Completed [facility] Polio (IPV/OPV) 2002-11-11 00:00:00 Completed [facility] Varicella (varivax)(chicken pox) 2002-11-11 00:00:00 Completed [facility] DTAP 2002-11-11 00:00:00 Completed [facility] Hep B, Adol or Pedi Dosage 2002-11-11 00:00:00 Completed [facility] HIB 4 Dose Schedule 2002-11-11 00:00:00 Completed [facility] Polio (IPV/OPV) 2002-11-11 00:00:00 Completed [facility] MMR 2002-11-11 00:00:00 Completed [facility] Varicella (varivax)(chicken pox) 2002-11-11 00:00:00 Completed [facility] DTAP 2002-11-11 00:00:00 Completed [facility] HIB 4 Dose Schedule 2002-11-11 00:00:00 Completed [facility] Hep B, Adol or Pedi Dosage 2002-11-11 00:00:00 Completed [facility] MMR 2002-11-11 00:00:00 Completed [facility] Polio (IPV/OPV) 2002-11-11 00:00:00 Completed [facility] Varicella (varivax)(chicken pox) 2002-11-11 00:00:00 Completed [facility] DTAP 2002-11-11 00:00:00 Completed [facility] Hep B, Adol or Pedi Dosage 2002-11-11 00:00:00 Completed [facility] HIB 4 Dose Schedule 2002-11-11 00:00:00 Completed [facility] Polio (IPV/OPV) 2002-11-11 00:00:00 Completed [facility] MMR 2002-11-11 00:00:00 Completed [facility] Varicella (varivax)(chicken pox) 2002-11-11 00:00:00 Completed [facility] DTAP 2002-11-11 00:00:00 Completed [facility] HIB 4 Dose Schedule 2002-11-11 00:00:00 Completed [facility] Hep B, Adol or Pedi Dosage 2002-11-11 00:00:00 Completed [facility] MMR 2002-11-11 00:00:00 Completed [facility] Polio (IPV/OPV) 2002-11-11 00:00:00 Completed [facility] Varicella (varivax)(chicken pox) 2002-11-11 00:00:00 Completed [facility] DTAP 2002-11-11 00:00:00 Completed [facility] Hep B, Adol or Pedi Dosage 2002-11-11 00:00:00 Completed [facility] HIB 4 Dose Schedule 2002-11-11 00:00:00 Completed [facility] Polio (IPV/OPV) 2002-11-11 00:00:00 Completed [facility] MMR 2002-11-11 00:00:00 Completed [facility] Varicella (varivax)(chicken pox) 2002-11-11 00:00:00 Completed [facility] DTaP, Unspecified Formulation 2002-11-11 00:00:00 Completed [facility] IPV 2002-11-11 00:00:00 Completed [facility] DTAP 2002-11-11 00:00:00 Completed [facility] HIB 4 Dose Schedule 2002-11-11 00:00:00 Completed [facility] DTaP, Unspecified Formulation 2002-11-11 00:00:00 Completed [facility] IPV 2002-11-11 00:00:00 Completed [facility] Hep B, Adol or Pedi Dosage 2002-11-11 00:00:00 Completed [facility] MMR 2002-11-11 00:00:00 Completed [facility] Polio (IPV/OPV) 2002-11-11 00:00:00 Completed [facility] DTaP, Unspecified Formulation 2002-11-11 00:00:00 Completed [facility] Varicella (varivax)(chicken pox) 2002-11-11 00:00:00 Completed [facility] IPV 2002-11-11 00:00:00 Completed [facility] DTAP 2002-11-11 00:00:00 Completed [facility] Hep B, Adol or Pedi Dosage 2002-11-11 00:00:00 Completed [facility] DTaP, Unspecified Formulation 2002-11-11 00:00:00 Completed [facility] HIB 4 Dose Schedule 2002-11-11 00:00:00 Completed [facility] IPV 2002-11-11 00:00:00 Completed [facility] Polio (IPV/OPV) 2002-11-11 00:00:00 Completed [facility] MMR 2002-11-11 00:00:00 Completed [facility] DTaP, Unspecified Formulation 2002-11-11 00:00:00 Completed [facility] Varicella (varivax)(chicken pox) 2002-11-11 00:00:00 Completed [facility] IPV 2002-11-11 00:00:00 Completed [facility] DTaP, Unspecified Formulation 2002-11-11 00:00:00 Completed [facility] IPV 2002-11-11 00:00:00 Completed [facility] DTaP, Unspecified Formulation 2002-11-11 00:00:00 Completed [facility] IPV 2002-11-11 00:00:00 Completed [facility] DTAP 2002-11-11 00:00:00 Completed [facility] HIB 4 Dose Schedule 2002-11-11 00:00:00 Completed [facility] DTaP, Unspecified Formulation 2002-11-11 00:00:00 Completed [facility] Hep B, Adol or Pedi Dosage 2002-11-11 00:00:00 Completed [facility] IPV 2002-11-11 00:00:00 Completed [facility] MMR 2002-11-11 00:00:00 Completed [facility] Polio (IPV/OPV) 2002-11-11 00:00:00 Completed [facility] DTaP, Unspecified Formulation 2002-11-11 00:00:00 Completed [facility] Varicella (varivax)(chicken pox) 2002-11-11 00:00:00 Completed [facility] IPV 2002-11-11 00:00:00 Completed [facility] DTAP 2002-11-11 00:00:00 Completed [facility] Hep B, Adol or Pedi Dosage 2002-11-11 00:00:00 Completed [facility] DTaP, Unspecified Formulation 2002-11-11 00:00:00 Completed [facility] HIB 4 Dose Schedule 2002-11-11 00:00:00 Completed [facility] IPV 2002-11-11 00:00:00 Completed [facility] Polio (IPV/OPV) 2002-11-11 00:00:00 Completed [facility] MMR 2002-11-11 00:00:00 Completed [facility] Varicella (varivax)(chicken pox) 2002-11-11 00:00:00 Completed [facility] DTaP, Unspecified Formulation 2002-11-11 00:00:00 Completed [facility] IPV 2002-11-11 00:00:00 Completed [facility] DTaP, Unspecified Formulation 2002-11-11 00:00:00 Completed [facility] IPV 2002-11-11 00:00:00 Completed [facility] DTaP, Unspecified Formulation 2002-11-11 00:00:00 Completed [facility] DTAP 2002-11-11 00:00:00 Completed [facility] IPV 2002-11-11 00:00:00 Completed [facility] Poliovirus, Live, Oral, Trivalent 1999-05-14 00:00:00 Completed [facility] DTaP, Unspecified Formulation 1999-05-14 00:00:00 Completed [facility] HIB 4 Dose Schedule 1999-05-14 00:00:00 Completed [facility] Poliovirus, Live, Oral, Trivalent 1999-05-14 00:00:00 Completed [facility] DTaP, Unspecified Formulation 1999-05-14 00:00:00 Completed [facility] HIB 4 Dose Schedule 1999-05-14 00:00:00 Completed [facility] Poliovirus, Live, Oral, Trivalent 1999-05-14 00:00:00 Completed [facility] DTaP, Unspecified Formulation 1999-05-14 00:00:00 Completed [facility] HIB 4 Dose Schedule 1999-05-14 00:00:00 Completed [facility] Poliovirus, Live, Oral, Trivalent 1999-05-14 00:00:00 Completed [facility] DTaP, Unspecified Formulation 1999-05-14 00:00:00 Completed [facility] HIB 4 Dose Schedule 1999-05-14 00:00:00 Completed [facility] Poliovirus, Live, Oral, Trivalent 1999-05-14 00:00:00 Completed [facility] DTaP, Unspecified Formulation 1999-05-14 00:00:00 Completed [facility] HIB 4 Dose Schedule 1999-05-14 00:00:00 Completed [facility] Poliovirus, Live, Oral, Trivalent 1999-05-14 00:00:00 Completed [facility] DTaP, Unspecified Formulation 1999-05-14 00:00:00 Completed [facility] HIB 4 Dose Schedule 1999-05-14 00:00:00 Completed [facility] Poliovirus, Live, Oral, Trivalent 1999-05-14 00:00:00 Completed [facility] DTaP, Unspecified Formulation 1999-05-14 00:00:00 Completed [facility] HIB 4 Dose Schedule 1999-05-14 00:00:00 Completed [facility] Poliovirus, Live, Oral, Trivalent 1999-05-14 00:00:00 Completed [facility] DTaP, Unspecified Formulation 1999-05-14 00:00:00 Completed [facility] HIB 4 Dose Schedule 1999-05-14 00:00:00 Completed [facility] Poliovirus, Live, Oral, Trivalent 1999-05-14 00:00:00 Completed [facility] DTaP, Unspecified Formulation 1999-05-14 00:00:00 Completed [facility] HIB 4 Dose Schedule 1999-05-14 00:00:00 Completed [facility] Poliovirus, Live, Oral, Trivalent 1999-05-14 00:00:00 Completed [facility] DTaP, Unspecified Formulation 1999-05-14 00:00:00 Completed [facility] HIB 4 Dose Schedule 1999-05-14 00:00:00 Completed [facility] Poliovirus, Live, Oral, Trivalent 1999-05-14 00:00:00 Completed [facility] DTaP, Unspecified Formulation 1999-05-14 00:00:00 Completed [facility] HIB 4 Dose Schedule 1999-05-14 00:00:00 Completed [facility] Poliovirus, Live, Oral, Trivalent 1999-05-14 00:00:00 Completed [facility] DTaP, Unspecified Formulation 1999-05-14 00:00:00 Completed [facility] HIB 4 Dose Schedule 1999-05-14 00:00:00 Completed [facility] Poliovirus, Live, Oral, Trivalent 1999-05-14 00:00:00 Completed [facility] DTaP, Unspecified Formulation 1999-05-14 00:00:00 Completed [facility] HIB 4 Dose Schedule 1999-05-14 00:00:00 Completed [facility] Poliovirus, Live, Oral, Trivalent 1999-05-14 00:00:00 Completed [facility] DTaP, Unspecified Formulation 1999-05-14 00:00:00 Completed [facility] HIB 4 Dose Schedule 1999-05-14 00:00:00 Completed [facility] Poliovirus, Live, Oral, Trivalent 1999-05-14 00:00:00 Completed [facility] DTaP, Unspecified Formulation 1999-05-14 00:00:00 Completed [facility] HIB 4 Dose Schedule 1999-05-14 00:00:00 Completed [facility] Poliovirus, Live, Oral, Trivalent 1999-05-14 00:00:00 Completed [facility] DTaP, Unspecified Formulation 1999-05-14 00:00:00 Completed [facility] HIB 4 Dose Schedule 1999-05-14 00:00:00 Completed [facility] Poliovirus, Live, Oral, Trivalent 1999-05-14 00:00:00 Completed [facility] DTaP, Unspecified Formulation 1999-05-14 00:00:00 Completed [facility] HIB 4 Dose Schedule 1999-05-14 00:00:00 Completed [facility] Poliovirus, Live, Oral, Trivalent 1999-05-14 00:00:00 Completed [facility] DTaP, Unspecified Formulation 1999-05-14 00:00:00 Completed [facility] HIB 4 Dose Schedule 1999-05-14 00:00:00 Completed [facility] Poliovirus, Live, Oral, Trivalent 1999-05-14 00:00:00 Completed [facility] DTaP, Unspecified Formulation 1999-05-14 00:00:00 Completed [facility] HIB 4 Dose Schedule 1999-05-14 00:00:00 Completed [facility] Poliovirus, Live, Oral, Trivalent 1999-05-14 00:00:00 Completed [facility] DTaP, Unspecified Formulation 1999-05-14 00:00:00 Completed [facility] HIB 4 Dose Schedule 1999-05-14 00:00:00 Completed [facility] Poliovirus, Live, Oral, Trivalent 1999-05-14 00:00:00 Completed [facility] DTaP, Unspecified Formulation 1999-05-14 00:00:00 Completed [facility] HIB 4 Dose Schedule 1999-05-14 00:00:00 Completed [facility] Poliovirus, Live, Oral, Trivalent 1999-01-26 00:00:00 Completed [facility] DTaP, Unspecified Formulation 1999-01-26 00:00:00 Completed [facility] Hep B, Adol or Pedi Dosage 1999-01-26 00:00:00 Completed [facility] HIB 4 Dose Schedule 1999-01-26 00:00:00 Completed [facility] Poliovirus, Live, Oral, Trivalent 1999-01-26 00:00:00 Completed [facility] DTaP, Unspecified Formulation 1999-01-26 00:00:00 Completed [facility] Hep B, Adol or Pedi Dosage 1999-01-26 00:00:00 Completed [facility] HIB 4 Dose Schedule 1999-01-26 00:00:00 Completed [facility] Poliovirus, Live, Oral, Trivalent 1999-01-26 00:00:00 Completed [facility] DTaP, Unspecified Formulation 1999-01-26 00:00:00 Completed [facility] Hep B, Adol or Pedi Dosage 1999-01-26 00:00:00 Completed [facility] HIB 4 Dose Schedule 1999-01-26 00:00:00 Completed [facility] Poliovirus, Live, Oral, Trivalent 1999-01-26 00:00:00 Completed [facility] DTaP, Unspecified Formulation 1999-01-26 00:00:00 Completed [facility] Hep B, Adol or Pedi Dosage 1999-01-26 00:00:00 Completed [facility] HIB 4 Dose Schedule 1999-01-26 00:00:00 Completed [facility] Poliovirus, Live, Oral, Trivalent 1999-01-26 00:00:00 Completed [facility] DTaP, Unspecified Formulation 1999-01-26 00:00:00 Completed [facility] Hep B, Adol or Pedi Dosage 1999-01-26 00:00:00 Completed [facility] HIB 4 Dose Schedule 1999-01-26 00:00:00 Completed [facility] Poliovirus, Live, Oral, Trivalent 1999-01-26 00:00:00 Completed [facility] DTaP, Unspecified Formulation 1999-01-26 00:00:00 Completed [facility] Hep B, Adol or Pedi Dosage 1999-01-26 00:00:00 Completed [facility] HIB 4 Dose Schedule 1999-01-26 00:00:00 Completed [facility] Poliovirus, Live, Oral, Trivalent 1999-01-26 00:00:00 Completed [facility] DTaP, Unspecified Formulation 1999-01-26 00:00:00 Completed [facility] Hep B, Adol or Pedi Dosage 1999-01-26 00:00:00 Completed [facility] HIB 4 Dose Schedule 1999-01-26 00:00:00 Completed [facility] Poliovirus, Live, Oral, Trivalent 1999-01-26 00:00:00 Completed [facility] DTaP, Unspecified Formulation 1999-01-26 00:00:00 Completed [facility] Hep B, Adol or Pedi Dosage 1999-01-26 00:00:00 Completed [facility] HIB 4 Dose Schedule 1999-01-26 00:00:00 Completed [facility] Poliovirus, Live, Oral, Trivalent 1999-01-26 00:00:00 Completed [facility] DTaP, Unspecified Formulation 1999-01-26 00:00:00 Completed [facility] Hep B, Adol or Pedi Dosage 1999-01-26 00:00:00 Completed [facility] HIB 4 Dose Schedule 1999-01-26 00:00:00 Completed [facility] Poliovirus, Live, Oral, Trivalent 1999-01-26 00:00:00 Completed [facility] DTaP, Unspecified Formulation 1999-01-26 00:00:00 Completed [facility] Hep B, Adol or Pedi Dosage 1999-01-26 00:00:00 Completed [facility] HIB 4 Dose Schedule 1999-01-26 00:00:00 Completed [facility] Poliovirus, Live, Oral, Trivalent 1999-01-26 00:00:00 Completed [facility] DTaP, Unspecified Formulation 1999-01-26 00:00:00 Completed [facility] Hep B, Adol or Pedi Dosage 1999-01-26 00:00:00 Completed [facility] HIB 4 Dose Schedule 1999-01-26 00:00:00 Completed [facility] Poliovirus, Live, Oral, Trivalent 1999-01-26 00:00:00 Completed [facility] DTaP, Unspecified Formulation 1999-01-26 00:00:00 Completed [facility] Hep B, Adol or Pedi Dosage 1999-01-26 00:00:00 Completed [facility] HIB 4 Dose Schedule 1999-01-26 00:00:00 Completed [facility] Poliovirus, Live, Oral, Trivalent 1999-01-26 00:00:00 Completed [facility] DTaP, Unspecified Formulation 1999-01-26 00:00:00 Completed [facility] Hep B, Adol or Pedi Dosage 1999-01-26 00:00:00 Completed [facility] HIB 4 Dose Schedule 1999-01-26 00:00:00 Completed [facility] Poliovirus, Live, Oral, Trivalent 1999-01-26 00:00:00 Completed [facility] DTaP, Unspecified Formulation 1999-01-26 00:00:00 Completed [facility] Hep B, Adol or Pedi Dosage 1999-01-26 00:00:00 Completed [facility] HIB 4 Dose Schedule 1999-01-26 00:00:00 Completed [facility] Poliovirus, Live, Oral, Trivalent 1999-01-26 00:00:00 Completed [facility] DTaP, Unspecified Formulation 1999-01-26 00:00:00 Completed [facility] Hep B, Adol or Pedi Dosage 1999-01-26 00:00:00 Completed [facility] HIB 4 Dose Schedule 1999-01-26 00:00:00 Completed [facility] Poliovirus, Live, Oral, Trivalent 1999-01-26 00:00:00 Completed [facility] DTaP, Unspecified Formulation 1999-01-26 00:00:00 Completed [facility] Hep B, Adol or Pedi Dosage 1999-01-26 00:00:00 Completed [facility] HIB 4 Dose Schedule 1999-01-26 00:00:00 Completed [facility] Poliovirus, Live, Oral, Trivalent 1999-01-26 00:00:00 Completed [facility] DTaP, Unspecified Formulation 1999-01-26 00:00:00 Completed [facility] Hep B, Adol or Pedi Dosage 1999-01-26 00:00:00 Completed [facility] HIB 4 Dose Schedule 1999-01-26 00:00:00 Completed [facility] Poliovirus, Live, Oral, Trivalent 1999-01-26 00:00:00 Completed [facility] DTaP, Unspecified Formulation 1999-01-26 00:00:00 Completed [facility] Hep B, Adol or Pedi Dosage 1999-01-26 00:00:00 Completed [facility] HIB 4 Dose Schedule 1999-01-26 00:00:00 Completed [facility] Poliovirus, Live, Oral, Trivalent 1999-01-26 00:00:00 Completed [facility] DTaP, Unspecified Formulation 1999-01-26 00:00:00 Completed [facility] Hep B, Adol or Pedi Dosage 1999-01-26 00:00:00 Completed [facility] HIB 4 Dose Schedule 1999-01-26 00:00:00 Completed [facility] Poliovirus, Live, Oral, Trivalent 1999-01-26 00:00:00 Completed [facility] DTaP, Unspecified Formulation 1999-01-26 00:00:00 Completed [facility] Hep B, Adol or Pedi Dosage 1999-01-26 00:00:00 Completed [facility] HIB 4 Dose Schedule 1999-01-26 00:00:00 Completed [facility] Poliovirus, Live, Oral, Trivalent 1999-01-26 00:00:00 Completed [facility] DTaP, Unspecified Formulation 1999-01-26 00:00:00 Completed [facility] Hep B, Adol or Pedi Dosage 1999-01-26 00:00:00 Completed [facility] HIB 4 Dose Schedule 1999-01-26 00:00:00 Completed [facility] Hep B, Adol or Pedi Dosage 1998 00:00:00 Completed [facility] Hep B, Adol or Pedi Dosage 1998 00:00:00 Completed [facility] Hep B, Adol or Pedi Dosage 1998 00:00:00 Completed [facility] Hep B, Adol or Pedi Dosage 1998 00:00:00 Completed [facility] Hep B, Adol or Pedi Dosage 1998 00:00:00 Completed [facility] Hep B, Adol or Pedi Dosage 1998 00:00:00 Completed [facility] Hep B, Adol or Pedi Dosage 1998 00:00:00 Completed [facility] Hep B, Adol or Pedi Dosage 1998 00:00:00 Completed [facility] Hep B, Adol or Pedi Dosage 1998 00:00:00 Completed [facility] Hep B, Adol or Pedi Dosage 1998 00:00:00 Completed [facility] Hep B, Adol or Pedi Dosage 1998 00:00:00 Completed [facility] Hep B, Adol or Pedi Dosage 1998 00:00:00 Completed [facility] Hep B, Adol or Pedi Dosage 1998 00:00:00 Completed [facility] Hep B, Adol or Pedi Dosage 1998 00:00:00 Completed [facility] Hep B, Adol or Pedi Dosage 1998 00:00:00 Completed [facility] Hep B, Adol or Pedi Dosage 1998 00:00:00 Completed [facility] Hep B, Adol or Pedi Dosage 1998 00:00:00 Completed [facility] Hep B, Adol or Pedi Dosage 1998 00:00:00 Completed [facility] Hep B, Adol or Pedi Dosage 1998 00:00:00 Completed [facility] Hep B, Adol or Pedi Dosage 1998 00:00:00 Completed [facility] Hep B, Adol or Pedi Dosage 1998 00:00:00 Completed [facility] HPV Unknown Completed [facility] Meningococcal Polysaccharide (groups A, C, Y and W-135) conjugate vaccine (MCV4P) Unknown Completed [facility] TDAP (ADACEL) VACCINE Unknown Completed [facility] Influenza Virus Vaccine Quad .5 mL IM 6+ MO (FLUZONE/FLULAVAL/FL UARIX) Unknown Completed [facility] TDAP (ADACEL) VACCINE Unknown Completed [facility] TDAP (ADACEL) VACCINE Unknown Completed [facility] Influenza Virus Vaccine Quad .5 mL IM 6+ MO (FLUZONE/FLULAVAL/FL UARIX) Unknown Completed [facility] HPV Unknown Completed [facility] Meningococcal Polysaccharide (groups A, C, Y and W-135) conjugate vaccine (MCV4P) Unknown Completed [facility] Varicella (varivax)(chicken pox) Unknown Completed [facility] SARS-COV-2 COVID-19 VACCINE - (MODERNA) Unknown Completed [facility] SARS-COV-2 COVID-19 VACCINE - (MODERNA) Unknown Completed [facility] DTaP, Unspecified Formulation Unknown Completed [facility] DTaP, Unspecified Formulation Unknown Completed [facility] DTaP, Unspecified Formulation Unknown Completed [facility] DTaP, Unspecified Formulation Unknown Completed [facility] HEPATITIS A Unknown Completed [facility] Hep B, Adol or Pedi Dosage Unknown Completed [facility] Hep B, Adol or Pedi Dosage Unknown Completed [facility] HIB 4 Dose Schedule Unknown Completed [facility] HIB 4 Dose Schedule Unknown Completed [facility] MMR Unknown Completed [facility] IPV Unknown Completed [facility] IPV Unknown Completed [facility] Poliovirus, Live, Oral, Trivalent Unknown Completed [facility] Poliovirus, Live, Oral, Trivalent Unknown Completed [facility] Tetanus/Diptheria Unknown Completed [facility] HPV Unknown Completed [facility] Meningococcal Polysaccharide (groups A, C, Y and W-135) conjugate vaccine (MCV4P) Unknown Completed [facility] TDAP (ADACEL) VACCINE Unknown Completed [facility] Influenza Virus Vaccine Quad .5 mL IM 6+ MO (FLUZONE/FLULAVAL/FL UARIX) Unknown Completed [facility] TDAP (ADACEL) VACCINE Unknown Completed [facility] TDAP (ADACEL) VACCINE Unknown Completed [facility] Influenza Virus Vaccine Quad .5 mL IM 6+ MO (FLUZONE/FLULAVAL/FL UARIX) Unknown Completed [facility] HPV Unknown Completed [facility] Meningococcal Polysaccharide (groups A, C, Y and W-135) conjugate vaccine (MCV4P) Unknown Completed [facility] Varicella (varivax)(chicken pox) Unknown Completed [facility] SARS-COV-2 COVID-19 VACCINE - (MODERNA) Unknown Completed [facility] SARS-COV-2 COVID-19 VACCINE - (MODERNA) Unknown Completed [facility] DTaP, Unspecified Formulation Unknown Completed [facility] DTaP, Unspecified Formulation Unknown Completed [facility] DTaP, Unspecified Formulation Unknown Completed [facility] DTaP, Unspecified Formulation Unknown Completed [facility] HEPATITIS A Unknown Completed [facility] Hep B, Adol or Pedi Dosage Unknown Completed [facility] Hep B, Adol or Pedi Dosage Unknown Completed [facility] HIB 4 Dose Schedule Unknown Completed [facility] HIB 4 Dose Schedule Unknown Completed [facility] MMR Unknown Completed [facility] IPV Unknown Completed [facility] IPV Unknown Completed [facility] Poliovirus, Live, Oral, Trivalent Unknown Completed [facility] Poliovirus, Live, Oral, Trivalent Unknown Completed [facility] Tetanus/Diptheria Unknown Completed [facility] HPV Unknown Completed [facility] Meningococcal Polysaccharide (groups A, C, Y and W-135) conjugate vaccine (MCV4P) Unknown Completed [facility] TDAP (ADACEL) VACCINE Unknown Completed [facility] Influenza Virus Vaccine Quad .5 mL IM 6+ MO (FLUZONE/FLULAVAL/FL UARIX) Unknown Completed [facility] TDAP (ADACEL) VACCINE Unknown Completed [facility] TDAP (ADACEL) VACCINE Unknown Completed [facility] Influenza Virus Vaccine Quad .5 mL IM 6+ MO (FLUZONE/FLULAVAL/FL UARIX) Unknown Completed [facility] HPV Unknown Completed [facility] Meningococcal Polysaccharide (groups A, C, Y and W-135) conjugate vaccine (MCV4P) Unknown Completed [facility] Varicella (varivax)(chicken pox) Unknown Completed [facility] SARS-COV-2 COVID-19 VACCINE - (MODERNA) Unknown Completed [facility] SARS-COV-2 COVID-19 VACCINE - (MODERNA) Unknown Completed [facility] DTaP, Unspecified Formulation Unknown Completed [facility] DTaP, Unspecified Formulation Unknown Completed [facility] DTaP, Unspecified Formulation Unknown Completed [facility] DTaP, Unspecified Formulation Unknown Completed [facility] HEPATITIS A Unknown Completed [facility] Hep B, Adol or Pedi Dosage Unknown Completed [facility] Hep B, Adol or Pedi Dosage Unknown Completed [facility] HIB 4 Dose Schedule Unknown Completed [facility] HIB 4 Dose Schedule Unknown Completed [facility] MMR Unknown Completed [facility] IPV Unknown Completed [facility] IPV Unknown Completed [facility] Poliovirus, Live, Oral, Trivalent Unknown Completed [facility] Poliovirus, Live, Oral, Trivalent Unknown Completed [facility] Tetanus/Diptheria Unknown Completed [facility] HPV Unknown Completed [facility] Meningococcal Polysaccharide (groups A, C, Y and W-135) conjugate vaccine (MCV4P) Unknown Completed [facility] TDAP (ADACEL) VACCINE Unknown Completed [facility] Influenza Virus Vaccine Quad .5 mL IM 6+ MO (FLUZONE/FLULAVAL/FL UARIX) Unknown Completed [facility] TDAP (ADACEL) VACCINE Unknown Completed [facility] TDAP (ADACEL) VACCINE Unknown Completed [facility] Influenza Virus Vaccine Quad .5 mL IM 6+ MO (FLUZONE/FLULAVAL/FL UARIX) Unknown Completed [facility] HPV Unknown Completed [facility] Meningococcal Polysaccharide (groups A, C, Y and W-135) conjugate vaccine (MCV4P) Unknown Completed [facility] Varicella (varivax)(chicken pox) Unknown Completed [facility] SARS-COV-2 COVID-19 VACCINE - (MODERNA) Unknown Completed [facility] SARS-COV-2 COVID-19 VACCINE - (MODERNA) Unknown Completed [facility] DTaP, Unspecified Formulation Unknown Completed [facility] DTaP, Unspecified Formulation Unknown Completed [facility] DTaP, Unspecified Formulation Unknown Completed [facility] DTaP, Unspecified Formulation Unknown Completed [facility] HEPATITIS A Unknown Completed [facility] Hep B, Adol or Pedi Dosage Unknown Completed [facility] Hep B, Adol or Pedi Dosage Unknown Completed [facility] HIB 4 Dose Schedule Unknown Completed [facility] HIB 4 Dose Schedule Unknown Completed [facility] MMR Unknown Completed [facility] IPV Unknown Completed [facility] IPV Unknown Completed [facility] Poliovirus, Live, Oral, Trivalent Unknown Completed [facility] Poliovirus, Live, Oral, Trivalent Unknown Completed [facility] Tetanus/Diptheria [facility] Meningococcal Polysaccharide (groups A, C, Y and W-135) conjugate vaccine (MCV4P) Unknown Completed [facility] TDAP (ADACEL) VACCINE Unknown Completed [facility] Influenza Virus Vaccine Quad .5 mL IM 6+ MO (FLUZONE/FLULAVAL/FL UARIX) Unknown Completed [facility] TDAP (ADACEL) VACCINE Unknown Completed [facility] TDAP (ADACEL) VACCINE Unknown Completed [facility] Influenza Virus Vaccine Quad .5 mL IM 6+ MO (FLUZONE/FLULAVAL/FL UARIX) Unknown Completed [facility] HPV Unknown Completed [facility] Meningococcal Polysaccharide (groups A, C, Y and W-135) conjugate vaccine (MCV4P) Unknown Completed [facility] Varicella (varivax)(chicken pox) Unknown Completed [facility] SARS-COV-2 COVID-19 VACCINE - (MODERNA) Unknown Completed [facility] DTaP, Unspecified Formulation Unknown Completed [facility] DTaP, Unspecified Formulation Unknown Completed [facility] DTaP, Unspecified Formulation Unknown Completed [facility] DTaP, Unspecified Formulation Unknown Completed [facility] HEPATITIS A Unknown Completed [facility] Hep B, Adol or Pedi Dosage Unknown Completed [facility] Hep B, Adol or Pedi Dosage Unknown Completed [facility] HIB 4 Dose Schedule Unknown Completed [facility] HIB 4 Dose Schedule Unknown Completed [facility] MMR Unknown Completed [facility] IPV Unknown Completed [facility] IPV Unknown Completed [facility] Poliovirus, Live, Oral, Trivalent Unknown Completed [facility] Poliovirus, Live, Oral, Trivalent Unknown Completed [facility]anus[facility]iptheria [facility] Meningococcal Polysaccharide (groups A, C, Y and W-135) conjugate vaccine (MCV4P) Unknown Completed [facility] TDAP (ADACEL) VACCINE Unknown Completed [facility] Influenza Virus Vaccine Quad .5 mL IM 6+ MO (FLUZONE/FLULAVAL/FL UARIX) Unknown Completed [facility] TDAP (ADACEL) VACCINE Unknown Completed [facility] TDAP (ADACEL) VACCINE Unknown Completed [facility] Influenza Virus Vaccine Quad .5 mL IM 6+ MO (FLUZONE/FLULAVAL/FL UARIX) Unknown Completed [facility] HPV Unknown Completed [facility] Meningococcal Polysaccharide (groups A, C, Y and W-135) conjugate vaccine (MCV4P) Unknown Completed [facility] Varicella (varivax)(chicken pox) Unknown Completed [facility] SARS-COV-2 COVID-19 VACCINE - (MODERNA) Unknown Completed [facility] SARS-COV-2 COVID-19 VACCINE - (MODERNA) Unknown Completed [facility] DTaP, Unspecified Formulation Unknown Completed [facility] DTaP, Unspecified Formulation Unknown Completed [facility] DTaP, Unspecified Formulation Unknown Completed [facility] DTaP, Unspecified Formulation Unknown Completed [facility] HEPATITIS A Unknown Completed [facility] Hep B, Adol or Pedi Dosage Unknown Completed [facility] Hep B, Adol or Pedi Dosage Unknown Completed [facility] HIB 4 Dose Schedule Unknown Completed [facility] HIB 4 Dose Schedule Unknown Completed [facility] MMR Unknown Completed [facility] IPV Unknown Completed [facility] IPV Unknown Completed [facility] Poliovirus, Live, Oral, Trivalent Unknown Completed [facility] Poliovirus, Live, Oral, Trivalent Unknown Completed [facility] Tetanus/Diptheria Unknown Completed [facility] HPV Unknown Completed [facility] Meningococcal Polysaccharide (groups A, C, Y and W-135) conjugate vaccine (MCV4P) Unknown Completed [facility] TDAP (ADACEL) VACCINE Unknown Completed [facility] Influenza Virus Vaccine Quad .5 mL IM 6+ MO (FLUZONE/FLULAVAL/FL UARIX) Unknown Completed [facility] TDAP (ADACEL) VACCINE Unknown Completed [facility] TDAP (ADACEL) VACCINE Unknown Completed [facility] Influenza Virus Vaccine Quad .5 mL IM 6+ MO (FLUZONE/FLULAVAL/FL UARIX) Unknown Completed [facility] HPV Unknown Completed [facility] Meningococcal Polysaccharide (groups A, C, Y and W-135) conjugate vaccine (MCV4P) Unknown Completed [facility] Varicella (varivax)(chicken pox) Unknown Completed [facility] SARS-COV-2 COVID-19 VACCINE - (MODERNA) Unknown Completed [facility] SARS-COV-2 COVID-19 VACCINE - (MODERNA) Unknown Completed [facility] DTaP, Unspecified Formulation Unknown Completed [facility] DTaP, Unspecified Formulation Unknown Completed [facility] DTaP, Unspecified Formulation Unknown Completed [facility] DTaP, Unspecified Formulation Unknown Completed [facility] HEPATITIS A Unknown Completed [facility] Hep B, Adol or Pedi Dosage Unknown Completed [facility] Hep B, Adol or Pedi Dosage Unknown Completed [facility] HIB 4 Dose Schedule Unknown Completed [facility] HIB 4 Dose Schedule Unknown Completed [facility] MMR Unknown Completed [facility] IPV Unknown Completed [facility] IPV Unknown Completed [facility] Poliovirus, Live, Oral, Trivalent Unknown Completed [facility] Poliovirus, Live, Oral, Trivalent Unknown Completed [facility] Tetanus/Diptheria Unknown Completed [facility] HPV Unknown Completed [facility] Meningococcal Polysaccharide (groups A, C, Y and W-135) conjugate vaccine (MCV4P) Unknown Completed [facility] TDAP (ADACEL) VACCINE Unknown Completed [facility] Influenza Virus Vaccine Quad .5 mL IM 6+ MO (FLUZONE/FLULAVAL/FL UARIX) Unknown Completed [facility] TDAP (ADACEL) VACCINE Unknown Completed [facility] TDAP (ADACEL) VACCINE Unknown Completed [facility] Influenza Virus Vaccine Quad .5 mL IM 6+ MO (FLUZONE/FLULAVAL/FL UARIX) Unknown Completed [facility] HPV Unknown Completed [facility] Meningococcal Polysaccharide (groups A, C, Y and W-135) conjugate vaccine (MCV4P) Unknown Completed [facility] Varicella (varivax)(chicken pox) Unknown Completed [facility] SARS-COV-2 COVID-19 VACCINE - (MODERNA) Unknown Completed [facility] SARS-COV-2 COVID-19 VACCINE - (MODERNA) Unknown Completed [facility] DTaP, Unspecified Formulation Unknown Completed [facility] DTaP, Unspecified Formulation Unknown Completed [facility] DTaP, Unspecified Formulation Unknown Completed [facility] DTaP, Unspecified Formulation Unknown Completed [facility] HEPATITIS A Unknown Completed [facility] Hep B, Adol or Pedi Dosage Unknown Completed [facility] Hep B, Adol or Pedi Dosage Unknown Completed [facility] HIB 4 Dose Schedule Unknown Completed [facility] HIB 4 Dose Schedule Unknown Completed [facility] MMR Unknown Completed [facility] IPV Unknown Completed [facility] IPV Unknown Completed [facility] Poliovirus, Live, Oral, Trivalent Unknown Completed [facility] Poliovirus, Live, Oral, Trivalent Unknown Completed [facility] Tetanus/Diptheria Unknown Completed [facility] HPV Unknown Completed [facility] Meningococcal Polysaccharide (groups A, C, Y and W-135) conjugate vaccine (MCV4P) Unknown Completed [facility] TDAP (ADACEL) VACCINE Unknown Completed [facility] Influenza Virus Vaccine Quad .5 mL IM 6+ MO (FLUZONE/FLULAVAL/FL UARIX) Unknown Completed [facility] TDAP (ADACEL) VACCINE Unknown Completed [facility] TDAP (ADACEL) VACCINE Unknown Completed [facility] Influenza Virus Vaccine Quad .5 mL IM 6+ MO (FLUZONE/FLULAVAL/FL UARIX) Unknown Completed [facility] HPV Unknown Completed [facility] Meningococcal Polysaccharide (groups A, C, Y and W-135) conjugate vaccine (MCV4P) Unknown Completed [facility] Varicella (varivax)(chicken pox) Unknown Completed [facility] SARS-COV-2 COVID-19 VACCINE - (MODERNA) Unknown Completed [facility] SARS-COV-2 COVID-19 VACCINE - (MODERNA) Unknown Completed [facility] DTaP, Unspecified Formulation Unknown Completed [facility] DTaP, Unspecified Formulation Unknown Completed [facility] DTaP, Unspecified Formulation Unknown Completed [facility] DTaP, Unspecified Formulation Unknown Completed [facility] HEPATITIS A Unknown Completed [facility] Hep B, Adol or Pedi Dosage Unknown Completed [facility] Hep B, Adol or Pedi Dosage Unknown Completed [facility] HIB 4 Dose Schedule Unknown Completed [facility] HIB 4 Dose Schedule Unknown Completed [facility] MMR Unknown Completed [facility] IPV Unknown Completed [facility] IPV Unknown Completed [facility] Poliovirus, Live, Oral, Trivalent Unknown Completed [facility] Poliovirus, Live, Oral, Trivalent Unknown Completed [facility] Tetanus/Diptheria [facility] Com[facility] Influenza Virus Vaccine Quad IM, Preserv and ABX Free 6 MO-64 YRS (FLUCELVAX) Unknown Completed [facility] HPV Unknown Completed [facility] Meningococcal Polysaccharide (groups A, C, Y and W-135) conjugate vaccine (MCV4P) Unknown Completed [facility] TDAP (ADACEL) VACCINE Unknown Completed [facility] Influenza Virus Vaccine Quad .5 mL IM 6+ MO (FLUZONE/FLULAVAL/FL UARIX) Unknown Completed [facility] TDAP (ADACEL) VACCINE Unknown Completed [facility] TDAP (ADACEL) VACCINE Unknown Completed [facility] Influenza Virus Vaccine Quad .5 mL IM 6+ MO (FLUZONE/FLULAVAL/FL UARIX) Unknown Completed [facility] HPV Unknown Completed [facility] Meningococcal Polysaccharide (groups A, C, Y and W-135) conjugate vaccine (MCV4P) Unknown Completed [facility] Varicella (varivax)(chicken pox) Unknown Completed [facility] SARS-COV-2 COVID-19 VACCINE - (MODERNA) Unknown Completed [facility] SARS-COV-2 COVID-19 VACCINE - (MODERNA) Unknown Completed [facility] DTaP, Unspecified Formulation Unknown Completed [facility] DTaP, Unspecified Formulation Unknown Completed [facility] DTaP, Unspecified Formulation Unknown Completed [facility] DTaP, Unspecified Formulation Unknown Completed [facility] HEPATITIS A Unknown Completed [facility] Hep B, Adol or Pedi Dosage Unknown Completed [facility] Hep B, Adol or Pedi Dosage Unknown Completed [facility] HIB 4 Dose Schedule Unknown Completed [facility] HIB 4 Dose Schedule Unknown Completed [facility] MMR Unknown Completed [facility] IPV Unknown Completed [facility] IPV Unknown Completed [facility] Poliovirus, Live, Oral, Trivalent Unknown Completed [facility] Poliovirus, Live, Oral, Trivalent Unknown Completed [facility] Tetanus/Diptheria [facility] Com[facility] Influenza Virus Vaccine Quad IM, Preserv and ABX Free 6 MO-64 YRS (FLUCELVAX) Unknown Completed [facility] HPV Unknown Completed [facility] Meningococcal Polysaccharide (groups A, C, Y and W-135) conjugate vaccine (MCV4P) Unknown Completed [facility] TDAP (ADACEL) VACCINE Unknown Completed [facility] Influenza Virus Vaccine Quad .5 mL IM 6+ MO (FLUZONE/FLULAVAL/FL UARIX) Unknown Completed [facility] TDAP (ADACEL) VACCINE Unknown Completed [facility] TDAP (ADACEL) VACCINE Unknown Completed [facility] Influenza Virus Vaccine Quad .5 mL IM 6+ MO (FLUZONE/FLULAVAL/FL UARIX) Unknown Completed [facility] HPV Unknown Completed [facility] Meningococcal Polysaccharide (groups A, C, Y and W-135) conjugate vaccine (MCV4P) Unknown Completed [facility] Varicella (varivax)(chicken pox) Unknown Completed [facility] SARS-COV-2 COVID-19 VACCINE - (MODERNA) Unknown Completed [facility] SARS-COV-2 COVID-19 VACCINE - (MODERNA) Unknown Completed [facility] DTaP, Unspecified Formulation Unknown Completed [facility] DTaP, Unspecified Formulation Unknown Completed [facility] DTaP, Unspecified Formulation Unknown Completed [facility] DTaP, Unspecified Formulation Unknown Completed [facility] HEPATITIS A Unknown Completed [facility] Hep B, Adol or Pedi Dosage Unknown Completed [facility] Hep B, Adol or Pedi Dosage Unknown Completed [facility] HIB 4 Dose Schedule Unknown Completed [facility] HIB 4 Dose Schedule Unknown Completed [facility] MMR Unknown Completed [facility] IPV Unknown Completed [facility] IPV Unknown Completed [facility] Poliovirus, Live, Oral, Trivalent Unknown Completed [facility] Poliovirus, Live, Oral, Trivalent Unknown Completed [facility] Tetanus/Diptheria Unknown Completed [facility] TDAP Unknown Completed [facility] Influenza Virus Vaccine Quad IM, Preserv and ABX Free 6 MO-64 YRS (FLUCELVAX) Unknown Completed [facility] HPV Unknown Completed [facility] Meningococcal Polysaccharide (groups A, C, Y and W-135) conjugate vaccine (MCV4P) Unknown Completed [facility] TDAP (ADACEL) VACCINE Unknown Completed [facility] Influenza Virus Vaccine Quad .5 mL IM 6+ MO (FLUZONE/FLULAVAL/FL UARIX) Unknown Completed [facility] TDAP (ADACEL) VACCINE Unknown Completed [facility] TDAP (ADACEL) VACCINE Unknown Completed [facility] Influenza Virus Vaccine Quad .5 mL IM 6+ MO (FLUZONE/FLULAVAL/FL UARIX) Unknown Completed [facility] HPV Unknown Completed [facility] Meningococcal Polysaccharide (groups A, C, Y and W-135) conjugate vaccine (MCV4P) Unknown Completed [facility] Varicella (varivax)(chicken pox) Unknown Completed [facility] SARS-COV-2 COVID-19 VACCINE - (MODERNA) Unknown Completed [facility] SARS-COV-2 COVID-19 VACCINE - (MODERNA) Unknown Completed [facility] DTaP, Unspecified Formulation Unknown Completed [facility] DTaP, Unspecified Formulation Unknown Completed [facility] DTaP, Unspecified Formulation Unknown Completed [facility] DTaP, Unspecified Formulation Unknown Completed [facility] HEPATITIS A Unknown Completed [facility] Hep B, Adol or Pedi Dosage Unknown Completed [facility] Hep B, Adol or Pedi Dosage Unknown Completed [facility] HIB 4 Dose Schedule Unknown Completed [facility] HIB 4 Dose Schedule Unknown Completed [facility] MMR Unknown Completed [facility] IPV Unknown Completed [facility] IPV Unknown Completed [facility] Poliovirus, Live, Oral, Trivalent Unknown Completed [facility] Poliovirus, Live, Oral, Trivalent Unknown Completed [facility] Tetanus/Diptheria [facility] Com[facility] Influenza Virus Vaccine Quad IM, Preserv and ABX Free 6 MO-64 YRS (FLUCELVAX) Unknown Completed [facility] HPV Unknown Completed [facility] Meningococcal Polysaccharide (groups A, C, Y and W-135) conjugate vaccine (MCV4P) Unknown Completed [facility] TDAP (ADACEL) VACCINE Unknown Completed [facility] Influenza Virus Vaccine Quad .5 mL IM 6+ MO (FLUZONE/FLULAVAL/FL UARIX) Unknown Completed [facility] TDAP (ADACEL) VACCINE Unknown Completed [facility] TDAP (ADACEL) VACCINE Unknown Completed [facility] Influenza Virus Vaccine Quad .5 mL IM 6+ MO (FLUZONE/FLULAVAL/FL UARIX) Unknown Completed [facility] HPV Unknown Completed [facility] Meningococcal Polysaccharide (groups A, C, Y and W-135) conjugate vaccine (MCV4P) Unknown Completed [facility] Varicella (varivax)(chicken pox) Unknown Completed [facility] SARS-COV-2 COVID-19 VACCINE - (MODERNA) Unknown Completed [facility] SARS-COV-2 COVID-19 VACCINE - (MODERNA) Unknown Completed [facility] DTaP, Unspecified Formulation Unknown Completed [facility] DTaP, Unspecified Formulation Unknown Completed [facility] DTaP, Unspecified Formulation Unknown Completed [facility] DTaP, Unspecified Formulation Unknown Completed [facility] HEPATITIS A Unknown Completed [facility] Hep B, Adol or Pedi Dosage Unknown Completed [facility] Hep B, Adol or Pedi Dosage Unknown Completed [facility] HIB 4 Dose Schedule Unknown Completed [facility] HIB 4 Dose Schedule Unknown Completed [facility] MMR Unknown Completed [facility] IPV Unknown Completed [facility] IPV Unknown Completed [facility] Poliovirus, Live, Oral, Trivalent Unknown Completed [facility] Poliovirus, Live, Oral, Trivalent Unknown Completed [facility] Tetanus/Diptheria [facility] Com[facility] Influenza Virus Vaccine Quad IM, Preserv and ABX Free 6 MO-64 YRS (FLUCELVAX) Unknown Completed [facility] HPV Unknown Completed [facility] Meningococcal Polysaccharide (groups A, C, Y and W-135) conjugate vaccine (MCV4P) Unknown Completed [facility] TDAP (ADACEL) VACCINE Unknown Completed [facility] Influenza Virus Vaccine Quad .5 mL IM 6+ MO (FLUZONE/FLULAVAL/FL UARIX) Unknown Completed [facility] TDAP (ADACEL) VACCINE Unknown Completed [facility] TDAP (ADACEL) VACCINE Unknown Completed [facility] Influenza Virus Vaccine Quad .5 mL IM 6+ MO (FLUZONE/FLULAVAL/FL UARIX) Unknown Completed [facility] HPV Unknown Completed [facility] Meningococcal Polysaccharide (groups A, C, Y and W-135) conjugate vaccine (MCV4P) Unknown Completed [facility] Varicella (varivax)(chicken pox) Unknown Completed [facility] SARS-COV-2 COVID-19 VACCINE - (MODERNA) Unknown Completed [facility] SARS-COV-2 COVID-19 VACCINE - (MODERNA) Unknown Completed [facility] DTaP, Unspecified Formulation Unknown Completed [facility] DTaP, Unspecified Formulation Unknown Completed [facility] DTaP, Unspecified Formulation Unknown Completed [facility] DTaP, Unspecified Formulation Unknown Completed [facility] HEPATITIS A Unknown Completed [facility] Hep B, Adol or Pedi Dosage Unknown Completed [facility] Hep B, Adol or Pedi Dosage Unknown Completed [facility] HIB 4 Dose Schedule Unknown Completed [facility] HIB 4 Dose Schedule Unknown Completed [facility] MMR Unknown Completed [facility] IPV Unknown Completed [facility] IPV Unknown Completed [facility] Poliovirus, Live, Oral, Trivalent Unknown Completed [facility] Poliovirus, Live, Oral, Trivalent Unknown Completed [facility] Tetanus/Diptheria Unknown Completed [facility] TDAP Unknown Completed [facility] Influenza Virus Vaccine Quad IM, Preserv and ABX Free 6 MO-64 YRS (FLUCELVAX) Unknown Completed [facility] HPV Unknown Completed [facility] Meningococcal Polysaccharide (groups A, C, Y and W-135) conjugate vaccine (MCV4P) Unknown Completed [facility] TDAP (ADACEL) VACCINE Unknown Completed [facility] Influenza Virus Vaccine Quad .5 mL IM 6+ MO (FLUZONE/FLULAVAL/FL UARIX) Unknown Completed [facility] TDAP (ADACEL) VACCINE Unknown Completed [facility] TDAP (ADACEL) VACCINE Unknown Completed [facility] Influenza Virus Vaccine Quad .5 mL IM 6+ MO (FLUZONE/FLULAVAL/FL UARIX) Unknown Completed [facility] HPV Unknown Completed [facility] Meningococcal Polysaccharide (groups A, C, Y and W-135) conjugate vaccine (MCV4P) Unknown Completed [facility] Varicella (varivax)(chicken pox) Unknown Completed [facility] SARS-COV-2 COVID-19 VACCINE - (MODERNA) Unknown Completed [facility] SARS-COV-2 COVID-19 VACCINE - (MODERNA) Unknown Completed [facility] DTaP, Unspecified Formulation Unknown Completed [facility] DTaP, Unspecified Formulation Unknown Completed [facility] DTaP, Unspecified Formulation Unknown Completed [facility] DTaP, Unspecified Formulation Unknown Completed [facility] HEPATITIS A Unknown Completed [facility] Hep B, Adol or Pedi Dosage Unknown Completed [facility] Hep B, Adol or Pedi Dosage Unknown Completed [facility] HIB 4 Dose Schedule Unknown Completed [facility] HIB 4 Dose Schedule Unknown Completed [facility] MMR Unknown Completed [facility] IPV Unknown Completed [facility] IPV Unknown Completed [facility] Poliovirus, Live, Oral, Trivalent Unknown Completed [facility] Poliovirus, Live, Oral, Trivalent Unknown Completed [facility] Tetanus/Diptheria Unknown Completed [facility] TDAP Unknown Completed [facility] Influenza Virus Vaccine Quad IM, Preserv and ABX Free 6 MO-64 YRS (FLUCELVAX) Unknown Completed [facility] HPV Unknown Completed [facility] Meningococcal Polysaccharide (groups A, C, Y and W-135) conjugate vaccine (MCV4P) Unknown Completed [facility] TDAP (ADACEL) VACCINE Unknown Completed [facility] Influenza Virus Vaccine Quad .5 mL IM 6+ MO (FLUZONE/FLULAVAL/FL UARIX) Unknown Completed [facility] TDAP (ADACEL) VACCINE Unknown Completed [facility] TDAP (ADACEL) VACCINE Unknown Completed [facility] Influenza Virus Vaccine Quad .5 mL IM 6+ MO (FLUZONE/FLULAVAL/FL UARIX) Unknown Completed [facility] HPV Unknown Completed [facility] Meningococcal Polysaccharide (groups A, C, Y and W-135) conjugate vaccine (MCV4P) Unknown Completed [facility] Varicella (varivax)(chicken pox) Unknown Completed [facility] SARS-COV-2 COVID-19 VACCINE - (MODERNA) Unknown Completed [facility] SARS-COV-2 COVID-19 VACCINE - (MODERNA) Unknown Completed [facility] DTaP, Unspecified Formulation Unknown Completed [facility] DTaP, Unspecified Formulation Unknown Completed [facility] DTaP, Unspecified Formulation Unknown Completed [facility] DTaP, Unspecified Formulation Unknown Completed [facility] HEPATITIS A Unknown Completed [facility] Hep B, Adol or Pedi Dosage Unknown Completed [facility] Hep B, Adol or Pedi Dosage Unknown Completed [facility] HIB 4 Dose Schedule Unknown Completed [facility] HIB 4 Dose Schedule Unknown Completed [facility] MMR Unknown Completed [facility] IPV Unknown Completed [facility] IPV Unknown Completed [facility] Poliovirus, Live, Oral, Trivalent Unknown Completed [facility] Poliovirus, Live, Oral, Trivalent Unknown Completed [facility] Tetanus/Diptheria Unknown Completed [facility] TDAP Unknown Completed [facility] Influenza Virus Vaccine Quad IM, Preserv and ABX Free 6 MO-64 YRS (FLUCELVAX) Unknown Completed [facility] HPV Unknown Completed [facility] Meningococcal Polysaccharide (groups A, C, Y and W-135) conjugate vaccine (MCV4P) Unknown Completed [facility] TDAP (ADACEL) VACCINE Unknown Completed [facility] Influenza Virus Vaccine Quad .5 mL IM 6+ MO (FLUZONE/FLULAVAL/FL UARIX) Unknown Completed [facility] TDAP (ADACEL) VACCINE Unknown Completed [facility] TDAP (ADACEL) VACCINE Unknown Completed [facility] Influenza Virus Vaccine Quad .5 mL IM 6+ MO (FLUZONE/FLULAVAL/FL UARIX) Unknown Completed [facility] HPV Unknown Completed [facility] Meningococcal Polysaccharide (groups A, C, Y and W-135) conjugate vaccine (MCV4P) Unknown Completed [facility] Varicella (varivax)(chicken pox) Unknown Completed [facility] SARS-COV-2 COVID-19 VACCINE - (MODERNA) Unknown Completed [facility] SARS-COV-2 COVID-19 VACCINE - (MODERNA) Unknown Completed [facility] DTaP, Unspecified Formulation Unknown Completed [facility] DTaP, Unspecified Formulation Unknown Completed [facility] DTaP, Unspecified Formulation Unknown Completed [facility] DTaP, Unspecified Formulation Unknown Completed [facility] HEPATITIS A Unknown Completed [facility] Hep B, Adol or Pedi Dosage Unknown Completed [facility] Hep B, Adol or Pedi Dosage Unknown Completed [facility] HIB 4 Dose Schedule Unknown Completed [facility] HIB 4 Dose Schedule Unknown Completed [facility] MMR Unknown Completed [facility] IPV Unknown Completed [facility] IPV Unknown Completed [facility] Poliovirus, Live, Oral, Trivalent Unknown Completed [facility] Poliovirus, Live, Oral, Trivalent Unknown Completed [facility] Tetanus[facility]iptheria [facility] Influenza Virus Vaccine Quad IM, Preserv and ABX Free 6 MO-64 YRS (FLUCELVAX) Unknown Completed [facility] HPV Unknown Completed [facility] Meningococcal Polysaccharide (groups A, C, Y and W-135) conjugate vaccine (MCV4P) Unknown Completed [facility] TDAP (ADACEL) VACCINE Unknown Completed [facility] Influenza Virus Vaccine Quad .5 mL IM 6+ MO (FLUZONE/FLULAVAL/FL UARIX) Unknown Completed [facility] TDAP (ADACEL) VACCINE Unknown Completed [facility] TDAP (ADACEL) VACCINE Unknown Completed [facility] Influenza Virus Vaccine Quad .5 mL IM 6+ MO (FLUZONE/FLULAVAL/FL UARIX) Unknown Completed [facility] HPV Unknown Completed [facility] Meningococcal Polysaccharide (groups A, C, Y and W-135) conjugate vaccine (MCV4P) Unknown Completed [facility] Varicella (varivax)(chicken pox) Unknown Completed [facility] SARS-COV-2 COVID-19 VACCINE - (MODERNA) Unknown Completed [facility] SARS-COV-2 COVID-19 VACCINE - (MODERNA) Unknown Completed [facility] DTaP, Unspecified Formulation Unknown Completed [facility] DTaP, Unspecified Formulation Unknown Completed [facility] DTaP, Unspecified Formulation Unknown Completed [facility] DTaP, Unspecified Formulation Unknown Completed [facility] HEPATITIS A Unknown Completed [facility] Hep B, Adol or Pedi Dosage Unknown Completed [facility] Hep B, Adol or Pedi Dosage Unknown Completed [facility] HIB 4 Dose Schedule Unknown Completed [facility] HIB 4 Dose Schedule Unknown Completed [facility] MMR Unknown Completed [facility] IPV Unknown Completed [facility] IPV Unknown Completed [facility] Poliovirus, Live, Oral, Trivalent Unknown Completed [facility] Poliovirus, Live, Oral, Trivalent Unknown Completed [facility] Tetanus/Diptheria [facility] Com[facility] Influenza Virus Vaccine Quad IM, Preserv and ABX Free 6 MO-64 YRS (FLUCELVAX) Unknown Completed [facility] HPV Unknown Completed [facility] Meningococcal Polysaccharide (groups A, C, Y and W-135) conjugate vaccine (MCV4P) Unknown Completed [facility] TDAP (ADACEL) VACCINE Unknown Completed [facility] Influenza Virus Vaccine Quad .5 mL IM 6+ MO (FLUZONE/FLULAVAL/FL UARIX) Unknown Completed [facility] TDAP (ADACEL) VACCINE Unknown Completed [facility] TDAP (ADACEL) VACCINE Unknown Completed [facility] Influenza Virus Vaccine Quad .5 mL IM 6+ MO (FLUZONE/FLULAVAL/FL UARIX) Unknown Completed [facility] HPV Unknown Completed [facility] Meningococcal Polysaccharide (groups A, C, Y and W-135) conjugate vaccine (MCV4P) Unknown Completed [facility] Varicella (varivax)(chicken pox) Unknown Completed [facility] SARS-COV-2 COVID-19 VACCINE - (MODERNA) Unknown Completed [facility] SARS-COV-2 COVID-19 VACCINE - (MODERNA) Unknown Completed [facility] DTaP, Unspecified Formulation Unknown Completed [facility] DTaP, Unspecified Formulation Unknown Completed [facility] DTaP, Unspecified Formulation Unknown Completed [facility] DTaP, Unspecified Formulation Unknown Completed [facility] HEPATITIS A Unknown Completed [facility] Hep B, Adol or Pedi Dosage Unknown Completed [facility] Hep B, Adol or Pedi Dosage Unknown Completed [facility] HIB 4 Dose Schedule Unknown Completed [facility] HIB 4 Dose Schedule Unknown Completed [facility] MMR Unknown Completed [facility] IPV Unknown Completed [facility] IPV Unknown Completed [facility] Poliovirus, Live, Oral, Trivalent Unknown Completed [facility] Poliovirus, Live, Oral, Trivalent Unknown Completed [facility] Tetanus/Diptheria [facility] Influenza Virus Vaccine Quad IM, Preserv and ABX Free 6 MO-64 YRS (FLUCELVAX) Unknown Completed [facility] HPV Unknown Completed [facility] Meningococcal Polysaccharide (groups A, C, Y and W-135) conjugate vaccine (MCV4P) Unknown Completed [facility] TDAP (ADACEL) VACCINE Unknown Completed [facility] Influenza Virus Vaccine Quad .5 mL IM 6+ MO (FLUZONE/FLULAVAL/FL UARIX) Unknown Completed [facility] TDAP (ADACEL) VACCINE Unknown Completed [facility] TDAP (ADACEL) VACCINE Unknown Completed [facility] Influenza Virus Vaccine Quad .5 mL IM 6+ MO (FLUZONE/FLULAVAL/FL UARIX) Unknown Completed [facility] HPV Unknown Completed [facility] Meningococcal Polysaccharide (groups A, C, Y and W-135) conjugate vaccine (MCV4P) Unknown Completed [facility] Varicella (varivax)(chicken pox) Unknown Completed [facility] SARS-COV-2 COVID-19 VACCINE - (MODERNA) Unknown Completed [facility] SARS-COV-2 COVID-19 VACCINE - (MODERNA) Unknown Completed [facility] DTaP, Unspecified Formulation Unknown Completed [facility] DTaP, Unspecified Formulation Unknown Completed [facility] DTaP, Unspecified Formulation Unknown Completed [facility] DTaP, Unspecified Formulation Unknown Completed [facility] HEPATITIS A Unknown Completed [facility] Hep B, Adol or Pedi Dosage Unknown Completed [facility] Hep B, Adol or Pedi Dosage Unknown Completed [facility] HIB 4 Dose Schedule Unknown Completed [facility] HIB 4 Dose Schedule Unknown Completed [facility] MMR Unknown Completed [facility] IPV Unknown Completed [facility] IPV Unknown Completed [facility] Poliovirus, Live, Oral, Trivalent Unknown Completed [facility] Poliovirus, Live, Oral, Trivalent Unknown Completed [facility] Tetanus/Diptheria [facility] Com[facility] Influenza Virus Vaccine Quad IM, Preserv and ABX Free 6 MO-64 YRS (FLUCELVAX) Unknown Completed [facility] HPV Unknown Completed [facility] Meningococcal Polysaccharide (groups A, C, Y and W-135) conjugate vaccine (MCV4P) Unknown Completed [facility] TDAP (ADACEL) VACCINE Unknown Completed [facility] Influenza Virus Vaccine Quad .5 mL IM 6+ MO (FLUZONE/FLULAVAL/FL UARIX) Unknown Completed [facility] TDAP (ADACEL) VACCINE Unknown Completed [facility] TDAP (ADACEL) VACCINE Unknown Completed [facility] Influenza Virus Vaccine Quad .5 mL IM 6+ MO (FLUZONE/FLULAVAL/FL UARIX) Unknown Completed [facility] HPV Unknown Completed [facility] Meningococcal Polysaccharide (groups A, C, Y and W-135) conjugate vaccine (MCV4P) Unknown Completed [facility] Varicella (varivax)(chicken pox) Unknown Completed [facility] SARS-COV-2 COVID-19 VACCINE - (MODERNA) Unknown Completed [facility] SARS-COV-2 COVID-19 VACCINE - (MODERNA) Unknown Completed [facility] DTaP, Unspecified Formulation Unknown Completed [facility] DTaP, Unspecified Formulation Unknown Completed [facility] DTaP, Unspecified Formulation Unknown Completed [facility] DTaP, Unspecified Formulation Unknown Completed [facility] HEPATITIS A Unknown Completed [facility] Hep B, Adol or Pedi Dosage Unknown Completed [facility] Hep B, Adol or Pedi Dosage Unknown Completed [facility] HIB 4 Dose Schedule Unknown Completed [facility] HIB 4 Dose Schedule Unknown Completed [facility] MMR Unknown Completed [facility] IPV Unknown Completed [facility] IPV Unknown Completed [facility] Poliovirus, Live, Oral, Trivalent Unknown Completed [facility] Poliovirus, Live, Oral, Trivalent Unknown Completed [facility] Tetanus/Diptheria [facility] Com[facility] Influenza Virus Vaccine Quad IM, Preserv and ABX Free 6 MO-64 YRS (FLUCELVAX) Unknown Completed [facility] HPV Unknown Completed [facility] Meningococcal Polysaccharide (groups A, C, Y and W-135) conjugate vaccine (MCV4P) Unknown Completed [facility] TDAP (ADACEL) VACCINE Unknown Completed [facility] Influenza Virus Vaccine Quad .5 mL IM 6+ MO (FLUZONE/FLULAVAL/FL UARIX) Unknown Completed [facility] TDAP (ADACEL) VACCINE Unknown Completed [facility] TDAP (ADACEL) VACCINE Unknown Completed [facility] Influenza Virus Vaccine Quad .5 mL IM 6+ MO (FLUZONE/FLULAVAL/FL UARIX) Unknown Completed [facility] HPV Unknown Completed [facility] Meningococcal Polysaccharide (groups A, C, Y and W-135) conjugate vaccine (MCV4P) Unknown Completed [facility] Varicella (varivax)(chicken pox) Unknown Completed [facility] SARS-COV-2 COVID-19 VACCINE - (MODERNA) Unknown Completed [facility] SARS-COV-2 COVID-19 VACCINE - (MODERNA) Unknown Completed [facility] DTaP, Unspecified Formulation Unknown Completed [facility] DTaP, Unspecified Formulation Unknown Completed [facility] DTaP, Unspecified Formulation Unknown Completed [facility] DTaP, Unspecified Formulation Unknown Completed [facility] HEPATITIS A Unknown Completed [facility] Hep B, Adol or Pedi Dosage Unknown Completed [facility] Hep B, Adol or Pedi Dosage Unknown Completed [facility] HIB 4 Dose Schedule Unknown Completed [facility] HIB 4 Dose Schedule Unknown Completed [facility] MMR Unknown Completed [facility] IPV Unknown Completed [facility] IPV Unknown Completed [facility] Poliovirus, Live, Oral, Trivalent Unknown Completed [facility] Poliovirus, Live, Oral, Trivalent Unknown Completed [facility] Tetanus/Diptheria [facility] Com[facility] Influenza Virus Vaccine Quad IM, Preserv and ABX Free 6 MO-64 YRS (FLUCELVAX) Unknown Completed [facility] HPV Unknown Completed [facility] Meningococcal Polysaccharide (groups A, C, Y and W-135) conjugate vaccine (MCV4P) Unknown Completed [facility] TDAP (ADACEL) VACCINE Unknown Completed [facility] Influenza Virus Vaccine Quad .5 mL IM 6+ MO (FLUZONE/FLULAVAL/FL UARIX) Unknown Completed [facility] TDAP (ADACEL) VACCINE Unknown Completed [facility] TDAP (ADACEL) VACCINE Unknown Completed [facility] Influenza Virus Vaccine Quad .5 mL IM 6+ MO (FLUZONE/FLULAVAL/FL UARIX) Unknown Completed [facility] HPV Unknown Completed [facility] Meningococcal Polysaccharide (groups A, C, Y and W-135) conjugate vaccine (MCV4P) Unknown Completed [facility] Varicella (varivax)(chicken pox) Unknown Completed [facility] SARS-COV-2 COVID-19 VACCINE - (MODERNA) Unknown Completed [facility] SARS-COV-2 COVID-19 VACCINE - (MODERNA) Unknown Completed [facility] DTaP, Unspecified Formulation Unknown Completed [facility] DTaP, Unspecified Formulation Unknown Completed [facility] DTaP, Unspecified Formulation Unknown Completed [facility] DTaP, Unspecified Formulation Unknown Completed [facility] HEPATITIS A Unknown Completed [facility] Hep B, Adol or Pedi Dosage Unknown Completed [facility] Hep B, Adol or Pedi Dosage Unknown Completed [facility] HIB 4 Dose Schedule Unknown Completed [facility] HIB 4 Dose Schedule Unknown Completed [facility] MMR Unknown Completed [facility] IPV Unknown Completed [facility] IPV Unknown Completed [facility] Poliovirus, Live, Oral, Trivalent Unknown Completed [facility] Poliovirus, Live, Oral, Trivalent Unknown Completed [facility] Tetanus/Diptheria [facility] Com[facility] Influenza Virus Vaccine Quad IM, Preserv and ABX Free 6 MO-64 YRS (FLUCELVAX) Unknown Completed [facility] HPV Unknown Completed [facility] Meningococcal Polysaccharide (groups A, C, Y and W-135) conjugate vaccine (MCV4P) Unknown Completed [facility] TDAP (ADACEL) VACCINE Unknown Completed [facility] Influenza Virus Vaccine Quad .5 mL IM 6+ MO (FLUZONE/FLULAVAL/FL UARIX) Unknown Completed [facility] TDAP (ADACEL) VACCINE Unknown Completed [facility] TDAP (ADACEL) VACCINE Unknown Completed [facility] [facility] Influ[facility] Virus Vaccine Quad .5 mL IM 6+ MO (FLUZONE/FLULAVAL/FL UARIX) Unknown Completed [facility] HPV Unknown Completed [facility] Meningococcal Polysaccharide (groups A, C, Y and W-135) conjugate vaccine (MCV4P) Unknown Completed [facility] Varicella (varivax)(chicken pox) Unknown Completed [facility] SARS-COV-2 COVID-19 VACCINE - (MODERNA) Unknown Completed [facility] SARS-COV-2 COVID-19 VACCINE - (MODERNA) Unknown Completed [facility] DTaP, Unspecified Formulation Unknown Completed [facility] DTaP, Unspecified Formulation Unknown Completed [facility] DTaP, Unspecified Formulation Unknown Completed [facility] DTaP, Unspecified Formulation Unknown Completed [facility] HEPATITIS A Unknown Completed [facility] Hep B, Adol or Pedi Dosage Unknown Completed [facility] Hep B, Adol or Pedi Dosage Unknown Completed [facility] HIB 4 Dose Schedule Unknown Completed [facility] HIB 4 Dose Schedule Unknown Completed [facility] MMR Unknown Completed [facility] IPV Unknown Completed [facility] IPV Unknown Completed [facility] Poliovirus, Live, Oral, Trivalent Unknown Completed [facility] Poliovirus, Live, Oral, Trivalent Unknown Completed [facility]ria [facility] Influenza Virus Vaccine Quad IM, Preserv and ABX Free 6 MO-64 YRS (FLUCELVAX) Unknown Completed [facility] HPV Unknown Completed [facility] Meningococcal Polysaccharide (groups A, C, Y and W-135) conjugate vaccine (MCV4P) Unknown Completed [facility] TDAP (ADACEL) VACCINE Unknown Completed [facility] Influenza Virus Vaccine Quad .5 mL IM 6+ MO (FLUZONE/FLULAVAL/FL UARIX) Unknown Completed [facility] TDAP (ADACEL) VACCINE Unknown Completed [facility] TDAP (ADACEL) VACCINE Unknown Completed [facility] Influenza Virus Vaccine Quad .5 mL IM 6+ MO (FLUZONE/FLULAVAL/FL UARIX) Unknown Completed [facility] HPV Unknown Completed [facility] Meningococcal Polysaccharide (groups A, C, Y and W-135) conjugate vaccine (MCV4P) Unknown Completed [facility] Varicella (varivax)(chicken pox) Unknown Completed [facility] SARS-COV-2 COVID-19 VACCINE - (MODERNA) Unknown Completed [facility] SARS-COV-2 COVID-19 VACCINE - (MODERNA) Unknown Completed [facility] DTaP, Unspecified Formulation Unknown Completed [facility] DTaP, Unspecified Formulation Unknown Completed [facility] DTaP, Unspecified Formulation Unknown Completed [facility] DTaP, Unspecified Formulation Unknown Completed [facility] HEPATITIS A Unknown Completed [facility] Hep B, Adol or Pedi Dosage Unknown Completed [facility] Hep B, Adol or Pedi Dosage Unknown Completed [facility] HIB 4 Dose Schedule Unknown Completed [facility] HIB 4 Dose Schedule Unknown Completed [facility] MMR Unknown Completed [facility] IPV Unknown Completed [facility] IPV Unknown Completed [facility] Poliovirus, Live, Oral, Trivalent Unknown Completed [facility] Poliovirus, Live, Oral, Trivalent Unknown Completed [facility] Tetanus/Diptheria Unknown Completed [facility] TDAP Unknown Completed [facility] Influenza Virus Vaccine Quad IM, Preserv and ABX Free 6 MO-64 YRS (FLUCELVAX) Unknown Completed [facility] HPV Unknown Completed [facility] Meningococcal Polysaccharide (groups A, C, Y and W-135) conjugate vaccine (MCV4P) Unknown Completed [facility] TDAP (ADACEL) VACCINE Unknown Completed [facility] Influenza Virus Vaccine Quad .5 mL IM 6+ MO (FLUZONE/FLULAVAL/FL UARIX) Unknown Completed [facility] TDAP (ADACEL) VACCINE Unknown Completed [facility] TDAP (ADACEL) VACCINE Unknown Completed [facility] Influenza Virus Vaccine Quad .5 mL IM 6+ MO (FLUZONE/FLULAVAL/FL UARIX) Unknown Completed [facility] HPV Unknown Completed [facility] Meningococcal Polysaccharide (groups A, C, Y and W-135) conjugate vaccine (MCV4P) Unknown Completed [facility] Varicella (varivax)(chicken pox) Unknown Completed [facility] SARS-COV-2 COVID-19 VACCINE - (MODERNA) Unknown Completed [facility] SARS-COV-2 COVID-19 VACCINE - (MODERNA) Unknown Completed [facility] DTaP, Unspecified Formulation Unknown Completed [facility] DTaP, Unspecified Formulation Unknown Completed [facility] DTaP, Unspecified Formulation Unknown Completed [facility] DTaP, Unspecified Formulation Unknown Completed [facility] HEPATITIS A Unknown Completed [facility] Hep B, Adol or Pedi Dosage Unknown Completed [facility] Hep B, Adol or Pedi Dosage Unknown Completed [facility] HIB 4 Dose Schedule Unknown Completed [facility] HIB 4 Dose Schedule Unknown Completed [facility] MMR Unknown Completed [facility] IPV Unknown Completed [facility] IPV Unknown Completed [facility] Poliovirus, Live, Oral, Trivalent Unknown Completed [facility] Poliovirus, Live, Oral, Trivalent Unknown Completed [facility] Tetanus/Diptheria Unknown Completed [facility] TDAP Unknown Completed [facility] Influenza Virus Vaccine Quad IM, Preserv and ABX Free 6 MO-64 YRS (FLUCELVAX) Unknown Completed [facility] HPV Unknown Completed [facility] Meningococcal Polysaccharide (groups A, C, Y and W-135) conjugate vaccine (MCV4P) Unknown Completed [facility] TDAP (ADACEL) VACCINE Unknown Completed [facility] Influenza Virus Vaccine Quad .5 mL IM 6+ MO (FLUZONE/FLULAVAL/FL UARIX) Unknown Completed [facility] TDAP (ADACEL) VACCINE Unknown Completed [facility] TDAP (ADACEL) VACCINE Unknown Completed [facility] Influenza Virus Vaccine Quad .5 mL IM 6+ MO (FLUZONE/FLULAVAL/FL UARIX) Unknown Completed [facility] HPV Unknown Completed [facility] Meningococcal Polysaccharide (groups A, C, Y and W-135) conjugate vaccine (MCV4P) Unknown Completed [facility] Varicella (varivax)(chicken pox) Unknown Completed [facility] SARS-COV-2 COVID-19 VACCINE - (MODERNA) Unknown Completed [facility] SARS-COV-2 COVID-19 VACCINE - (MODERNA) Unknown Completed [facility] DTaP, Unspecified Formulation Unknown Completed [facility] DTaP, Unspecified Formulation Unknown Completed [facility] DTaP, Unspecified Formulation Unknown Completed [facility] DTaP, Unspecified Formulation Unknown Completed [facility] HEPATITIS A Unknown Completed [facility] Hep B, Adol or Pedi Dosage Unknown Completed [facility] Hep B, Adol or Pedi Dosage Unknown Completed [facility] HIB 4 Dose Schedule Unknown Completed [facility] HIB 4 Dose Schedule Unknown Completed [facility] MMR Unknown Completed [facility] IPV Unknown Completed [facility] IPV Unknown Completed [facility] Poliovirus, Live, Oral, Trivalent Unknown Completed [facility] Poliovirus, Live, Oral, Trivalent Unknown Completed [facility] Tetanus[facility]ria [facility] Influenza Virus Vaccine Quad IM, Preserv and ABX Free 6 MO-64 YRS (FLUCELVAX) Unknown Completed [facility] HPV Unknown Completed [facility] Meningococcal Polysaccharide (groups A, C, Y and W-135) conjugate vaccine (MCV4P) Unknown Completed [facility] TDAP (ADACEL) VACCINE Unknown Completed [facility] Influenza Virus Vaccine Quad .5 mL IM 6+ MO (FLUZONE/FLULAVAL/FL UARIX) Unknown Completed [facility] TDAP (ADACEL) VACCINE Unknown Completed [facility] TDAP (ADACEL) VACCINE Unknown Completed [facility] Influenza Virus Vaccine Quad .5 mL IM 6+ MO (FLUZONE/FLULAVAL/FL UARIX) Unknown Completed [facility] HPV Unknown Completed [facility] Meningococcal Polysaccharide (groups A, C, Y and W-135) conjugate vaccine (MCV4P) Unknown Completed [facility] Varicella (varivax)(chicken pox) Unknown Completed [facility] SARS-COV-2 COVID-19 VACCINE - (MODERNA) Unknown Completed [facility] SARS-COV-2 COVID-19 VACCINE - (MODERNA) Unknown Completed [facility] DTaP, Unspecified Formulation Unknown Completed [facility] DTaP, Unspecified Formulation Unknown Completed [facility] DTaP, Unspecified Formulation Unknown Completed [facility] DTaP, Unspecified Formulation Unknown Completed [facility] HEPATITIS A Unknown Completed [facility] Hep B, Adol or Pedi Dosage Unknown Completed [facility] Hep B, Adol or Pedi Dosage Unknown Completed [facility] HIB 4 Dose Schedule Unknown Completed [facility] HIB 4 Dose Schedule Unknown Completed [facility] MMR Unknown Completed [facility] IPV Unknown Completed [facility] IPV Unknown Completed [facility] Poliovirus, Live, Oral, Trivalent Unknown Completed [facility] Poliovirus, Live, Oral, Trivalent Unknown Completed [facility] Tetanus/Diptheria [facility] Influenza Virus Vaccine Quad IM, Preserv and ABX Free 6 MO-64 YRS (FLUCELVAX) Unknown Completed [facility] HPV Unknown Completed [facility] Meningococcal Polysaccharide (groups A, C, Y and W-135) conjugate vaccine (MCV4P) Unknown Completed [facility] TDAP (ADACEL) VACCINE Unknown Completed [facility] Influenza Virus Vaccine Quad .5 mL IM 6+ MO (FLUZONE/FLULAVAL/FL UARIX) Unknown Completed [facility] TDAP (ADACEL) VACCINE Unknown Completed [facility] TDAP (ADACEL) VACCINE Unknown Completed [facility] Influenza Virus Vaccine Quad .5 mL IM 6+ MO (FLUZONE/FLULAVAL/FL UARIX) Unknown Completed [facility] HPV Unknown Completed [facility] Meningococcal Polysaccharide (groups A, C, Y and W-135) conjugate vaccine (MCV4P) Unknown Completed [facility] Varicella (varivax)(chicken pox) Unknown Completed [facility] SARS-COV-2 COVID-19 VACCINE - (MODERNA) Unknown Completed [facility] SARS-COV-2 COVID-19 VACCINE - (MODERNA) Unknown Completed [facility] DTaP, Unspecified Formulation Unknown Completed [facility] DTaP, Unspecified Formulation Unknown Completed [facility] DTaP, Unspecified Formulation Unknown Completed [facility] DTaP, Unspecified Formulation Unknown Completed [facility] HEPATITIS A Unknown Completed [facility] Hep B, Adol or Pedi Dosage Unknown Completed [facility] Hep B, Adol or Pedi Dosage Unknown Completed [facility] HIB 4 Dose Schedule Unknown Completed [facility] HIB 4 Dose Schedule Unknown Completed [facility] MMR Unknown Completed [facility] IPV Unknown Completed [facility] IPV Unknown Completed [facility] Poliovirus, Live, Oral, Trivalent Unknown Completed [facility] Poliovirus, Live, Oral, Trivalent Unknown Completed [facility] Tetanus/Diptheria Unknown Completed [facility] TDAP Unknown Completed [facility] Influenza Virus Vaccine Quad IM, Preserv and ABX Free 6 MO-64 YRS (FLUCELVAX) Unknown Completed [facility] HPV Unknown Completed [facility] Meningococcal Polysaccharide (groups A, C, Y and W-135) conjugate vaccine (MCV4P) Unknown Completed [facility] TDAP (ADACEL) VACCINE Unknown Completed [facility] Influenza Virus Vaccine Quad .5 mL IM 6+ MO (FLUZONE/FLULAVAL/FL UARIX) Unknown Completed [facility] TDAP (ADACEL) VACCINE Unknown Completed [facility] TDAP (ADACEL) VACCINE Unknown Completed [facility] Influenza Virus Vaccine Quad .5 mL IM 6+ MO (FLUZONE/FLULAVAL/FL UARIX) Unknown Completed [facility] HPV Unknown Completed [facility] Meningococcal Polysaccharide (groups A, C, Y and W-135) conjugate vaccine (MCV4P) Unknown Completed [facility] Varicella (varivax)(chicken pox) Unknown Completed [facility] SARS-COV-2 COVID-19 VACCINE - (MODERNA) Unknown Completed [facility] SARS-COV-2 COVID-19 VACCINE - (MODERNA) Unknown Completed [facility] DTaP, Unspecified Formulation Unknown Completed [facility] DTaP, Unspecified Formulation Unknown Completed [facility] DTaP, Unspecified Formulation Unknown Completed [facility] DTaP, Unspecified Formulation Unknown Completed [facility] HEPATITIS A Unknown Completed [facility] Hep B, Adol or Pedi Dosage Unknown Completed [facility] Hep B, Adol or Pedi Dosage Unknown Completed [facility] HIB 4 Dose Schedule Unknown Completed [facility] HIB 4 Dose Schedule Unknown Completed [facility] MMR Unknown Completed [facility] IPV Unknown Completed [facility] IPV Unknown Completed [facility] Poliovirus, Live, Oral, Trivalent Unknown Completed [facility] Poliovirus, Live, Oral, Trivalent Unknown Completed [facility] Tetanus/Diptheria Unknown Completed [facility] TDAP Unknown Completed [facility] Influenza Virus Vaccine Quad IM, Preserv and ABX Free 6 MO-64 YRS (FLUCELVAX) Unknown Completed [facility] HPV Unknown Completed [facility] Meningococcal Polysaccharide (groups A, C, Y and W-135) conjugate vaccine (MCV4P) Unknown Completed [facility] TDAP (ADACEL) VACCINE Unknown Completed [facility] Influenza Virus Vaccine Quad .5 mL IM 6+ MO (FLUZONE/FLULAVAL/FL UARIX) Unknown Completed [facility] TDAP (ADACEL) VACCINE Unknown Completed [facility] TDAP (ADACEL) VACCINE Unknown Completed [facility] Influenza Virus Vaccine Quad .5 mL IM 6+ MO (FLUZONE/FLULAVAL/FL UARIX) Unknown Completed [facility] HPV Unknown Completed [facility] Meningococcal Polysaccharide (groups A, C, Y and W-135) conjugate vaccine (MCV4P) Unknown Completed [facility] Varicella (varivax)(chicken pox) Unknown Completed [facility] SARS-COV-2 COVID-19 VACCINE - (MODERNA) Unknown Completed [facility] SARS-COV-2 COVID-19 VACCINE - (MODERNA) Unknown Completed [facility] DTaP, Unspecified Formulation Unknown Completed [facility] DTaP, Unspecified Formulation Unknown Completed [facility] DTaP, Unspecified Formulation Unknown Completed [facility] DTaP, Unspecified Formulation Unknown Completed [facility] HEPATITIS A Unknown Completed [facility] Hep B, Adol or Pedi Dosage Unknown Completed [facility] Hep B, Adol or Pedi Dosage Unknown Completed [facility] HIB 4 Dose Schedule Unknown Completed [facility] HIB 4 Dose Schedule Unknown Completed [facility] MMR Unknown Completed [facility] IPV Unknown Completed [facility] IPV Unknown Completed [facility] Poliovirus, Live, Oral, Trivalent Unknown Completed [facility] Poliovirus, Live, Oral, Trivalent Unknown Completed [facility] Tetanus/Diptheria Unknown Completed [facility] TDAP Unknown Completed [facility] Influenza Virus Vaccine Quad IM, Preserv and ABX Free 6 MO-64 YRS (FLUCELVAX) Unknown Completed [facility] DTAP Unknown Completed [facility] HIB 4 Dose Schedule Unknown Completed [facility] Hep B, Adol or Pedi Dosage Unknown Completed [facility] MMR Unknown Completed [facility] Polio (IPV/OPV) Unknown Completed [facility] Varicella (varivax)(chicken pox) Unknown Completed [facility] DTAP Unknown Completed [facility] Hep B, Adol or Pedi Dosage Unknown Completed [facility] HIB 4 Dose Schedule Unknown Completed [facility] Polio (IPV/OPV) Unknown Completed [facility] MMR Unknown Completed [facility] Varicella (varivax)(chicken pox) Unknown Completed [facility] HPV Unknown Completed [facility] Meningococcal Polysaccharide (groups A, C, Y and W-135) conjugate vaccine (MCV4P) Unknown Completed [facility] TDAP (ADACEL) VACCINE Unknown Completed [facility] Influenza Virus Vaccine Quad .5 mL IM 6+ MO (FLUZONE/FLULAVAL/FL UARIX) Unknown Completed [facility] TDAP (ADACEL) VACCINE Unknown Completed [facility] TDAP (ADACEL) VACCINE Unknown Completed [facility] Influenza Virus Vaccine Quad .5 mL IM 6+ MO (FLUZONE/FLULAVAL/FL UARIX) Unknown Completed [facility] HPV Unknown Completed [facility] Meningococcal Polysaccharide (groups A, C, Y and W-135) conjugate vaccine (MCV4P) Unknown Completed [facility] Varicella (varivax)(chicken pox) Unknown Completed [facility] SARS-COV-2 COVID-19 VACCINE - (MODERNA) Unknown Completed [facility] SARS-COV-2 COVID-19 VACCINE - (MODERNA) Unknown Completed [facility] DTaP, Unspecified Formulation Unknown Completed [facility] DTaP, Unspecified Formulation Unknown Completed [facility] DTaP, Unspecified Formulation Unknown Completed [facility] DTaP, Unspecified Formulation Unknown Completed [facility] HEPATITIS A Unknown Completed [facility] Hep B, Adol or Pedi Dosage Unknown Completed [facility] Hep B, Adol or Pedi Dosage Unknown Completed [facility] HIB 4 Dose Schedule Unknown Completed [facility] HIB 4 Dose Schedule Unknown Completed [facility] MMR Unknown Completed [facility] IPV Unknown Completed [facility] IPV Unknown Completed [facility] Poliovirus, Live, Oral, Trivalent Unknown Completed [facility] Poliovirus, Live, Oral, Trivalent Unknown Completed [facility] Tetanus/Diptheria Unknown Completed [facility] TDAP Unknown Completed [facility] Influenza Virus Vaccine Quad IM, Preserv and ABX Free 6 MO-64 YRS (FLUCELVAX) Unknown Completed [facility] HPV Unknown Completed [facility] Meningococcal Polysaccharide (groups A, C, Y and W-135) conjugate vaccine (MCV4P) Unknown Completed [facility] TDAP (ADACEL) VACCINE Unknown Completed [facility] Influenza Virus Vaccine Quad .5 mL IM 6+ MO (FLUZONE/FLULAVAL/FL UARIX) Unknown Completed [facility] TDAP (ADACEL) VACCINE Unknown Completed [facility] TDAP (ADACEL) VACCINE Unknown Completed [facility] Influenza Virus Vaccine Quad .5 mL IM 6+ MO (FLUZONE/FLULAVAL/FL UARIX) Unknown Completed [facility] HPV Unknown Completed [facility] Meningococcal Polysaccharide (groups A, C, Y and W-135) conjugate vaccine (MCV4P) Unknown Completed [facility] Varicella (varivax)(chicken pox) Unknown Completed [facility] SARS-COV-2 COVID-19 VACCINE - (MODERNA) Unknown Completed [facility] SARS-COV-2 COVID-19 VACCINE - (MODERNA) Unknown Completed [facility] DTaP, Unspecified Formulation Unknown Completed [facility] DTaP, Unspecified Formulation Unknown Completed [facility] DTaP, Unspecified Formulation Unknown Completed [facility] DTaP, Unspecified Formulation Unknown Completed [facility] HEPATITIS A Unknown Completed [facility] Hep B, Adol or Pedi Dosage Unknown Completed [facility] Hep B, Adol or Pedi Dosage Unknown Completed [facility] HIB 4 Dose Schedule Unknown Completed [facility] HIB 4 Dose Schedule Unknown Completed [facility] MMR Unknown Completed [facility] IPV Unknown Completed [facility] IPV Unknown Completed [facility] Poliovirus, Live, Oral, Trivalent Unknown Completed [facility] Poliovirus, Live, Oral, Trivalent Unknown Completed [facility] Tetanus/Diptheria [facility] Com[facility] Influenza Virus Vaccine Quad IM, Preserv and ABX Free 6 MO-64 YRS (FLUCELVAX) Unknown Completed [facility] Vital Signs Vital Name Observation Time Observation Value Comments S ource Systolic blood pressure 2023-10-10 17:38:00 102 mm[Hg] [facility] Diastolic blood pressure 2023-10-10 17:38:00 78 mm[Hg] [facility] Heart rate 2023-10-10 17:38:00 84 /min [facility] Respiratory rate 2023-10-10 17:38:00 18 /min [facility] Body weight 2023-10-10 17:38:00 92.987 kg [facility] BMI 2023-10-10 17:38:00 34.11 kg/m2 [facility] Oxygen saturation in Arterial blood by Pulse oximetry 2023-10-10 17:38:00 99 /min [facility] Systolic blood pressure 2023-09-27 13:45:00 105 mm[Hg] [facility] Diastolic blood pressure 2023-09-27 13:45:00 52 mm[Hg] [facility] Heart rate 2023-09-27 13:45:00 63 /min [facility] Body temperature 2023-09-27 13:45:00 36.61 [facility] Respiratory rate 2023-09-27 13:45:00 16 /min [facility] Oxygen saturation in Arterial blood by Pulse oximetry 2023-09-27 13:45:00 99 /min [facility] Body weight 2023-09-26 14:00:00 103 kg [facility] BMI 2023-09-26 14:00:00 37.79 kg/m2 [facility] Systolic blood pressure 2023-09-18 21:43:00 119 mm[Hg] [facility] Diastolic blood pressure 2023-09-18 21:43:00 75 mm[Hg] [facility] Heart rate 2023-09-18 21:43:00 86 /min [facility] Body temperature 2023-09-18 21:43:00 36.78 [facility] Respiratory rate 2023-09-18 21:43:00 18 /min [facility] Body height 2023-09-18 21:43:00 165.1 cm [facility] [facility] Body weight 2023-09-18 21:43:00 102.241 kg [facility] BMI 2023-09-18 21:43:00 37.51 kg/m2 [facility] Oxygen saturation in Arterial blood by Pulse oximetry 2023-09-18 21:43:00 100 /min [facility] Systolic blood pressure 2023-09-16 09:30:00 118 mm[Hg] [facility] Diastolic blood pressure 2023-09-16 09:30:00 70 mm[Hg] [facility] Heart rate 2023-09-16 09:30:00 93 /min [facility] Body temperature 2023-09-16 09:30:00 36.83 [facility] Oxygen saturation in Arterial blood by Pulse oximetry 2023-09-16 09:30:00 100 /min [facility] Respiratory rate 2023-09-16 07:45:00 17 /min [facility] Systolic blood pressure 2023-09-11 22:18:00 125 mm[Hg] [facility] Diastolic blood pressure 2023-09-11 22:18:00 73 mm[Hg] [facility] Heart rate 2023-09-11 22:18:00 86 /min [facility] Body temperature 2023-09-11 22:18:00 37.28 [facility] Respiratory rate 2023-09-11 22:18:00 16 /min [facility] Body weight 2023-09-11 22:18:00 98.612 kg [facility] BMI 2023-09-11 22:18:00 36.18 kg/m2 [facility] Oxygen saturation in Arterial blood by Pulse oximetry 2023-09-11 22:18:00 100 /min [facility] Systolic blood pressure 2023-09-08 03:30:00 125 mm[Hg] [facility] Diastolic blood pressure 2023-09-08 03:30:00 65 mm[Hg] [facility] Heart rate 2023-09-08 03:30:00 92 /min [facility] Oxygen saturation in Arterial blood by Pulse oximetry 2023-09-08 03:30:00 100 /min [facility] Body temperature 2023-09-08 02:40:00 36.61 [facility] Respiratory rate 2023-09-08 02:40:00 17 /min [facility] Systolic blood pressure 2023-09-03 22:00:00 112 mm[Hg] [facility] Diastolic blood pressure 2023-09-03 22:00:00 70 mm[Hg] [facility] Heart rate 2023-09-03 22:00:00 109 /min [facility] Oxygen saturation in Arterial blood by Pulse oximetry 2023-09-03 22:00:00 100 /min [facility] Body temperature 2023-09-03 21:37:00 36.78 [facility] Respiratory rate 2023-09-03 21:37:00 16 /min [facility] Body weight 2023-09-03 21:13:00 96.798 kg [facility] BMI 2023-09-03 21:13:00 35.51 kg/m2 [facility] Body height 2023-09-03 21:13:00 165.1 cm [facility] Systolic blood pressure 2023-09-02 20:21:00 113 mm[Hg] [facility] Diastolic blood pressure 2023-09-02 20:21:00 67 mm[Hg] [facility] Heart rate 2023-09-02 20:21:00 93 /min [facility] Body temperature 2023-09-02 20:21:00 36.83 [facility] Respiratory rate 2023-09-02 20:21:00 16 /min [facility] Body height 2023-09-02 20:21:00 165.1 cm [facility] Body weight 2023-09-02 20:21:00 95.255 kg [facility] BMI 2023-09-02 20:21:00 34.95 kg/m2 [facility] Oxygen saturation in Arterial blood by Pulse oximetry 2023-09-02 20:21:00 97 /min [facility] Systolic blood pressure 2023-08-28 17:08:00 108 mm[Hg] [facility] Diastolic blood pressure 2023-08-28 17:08:00 69 mm[Hg] [facility] Heart rate 2023-08-28 17:08:00 90 /min [facility] Body temperature 2023-08-28 17:08:00 36.5 [facility] Body height 2023-08-28 17:08:00 165.1 cm [facility] Body weight 2023-08-28 17:08:00 94.439 kg [facility] BMI 2023-08-28 17:08:00 34.65 kg/m2 [facility] Heart rate 2023-08-22 18:00:00 84 /[facility] in Arterial blood by Pulse oximetry 2023-08-22 18:00:00 99 /min [facility] Systolic blood pressure 2023-08-22 17:00:00 123 mm[Hg] [facility] Diastolic blood pressure 2023-08-22 17:00:00 63 mm[Hg] [facility] Body temperature 2023-08-22 17:00:00 36.06 [facility] Respiratory rate 2023-08-22 17:00:00 16 /min [facility] Body weight 2023-08-20 21:50:00 99.542 kg [facility] BMI 2023-08-20 21:50:00 36.52 kg/m2 [facility] Body height 2023-08-20 21:01:00 165.1 cm [facility] Systolic blood pressure 2023-08-04 16:25:00 108 mm[Hg] [facility] Diastolic blood pressure 2023-08-04 16:25:00 64 mm[Hg] [facility] Heart rate 2023-08-04 16:25:00 87 /min [facility] Body temperature 2023-08-04 16:25:00 36.56 [facility] Respiratory rate 2023-08-04 16:25:00 18 /min [facility] Body height 2023-08-04 16:25:00 165.1 cm [facility] Body weight 2023-08-04 16:25:00 94.802 kg [facility] BMI 2023-08-04 16:25:00 34.78 kg/m2 [facility] Oxygen saturation in Arterial blood by Pulse oximetry 2023-08-04 16:25:00 99 /min [facility] Heart rate 2023-07-29 09:45:00 92 /min [facility] Oxygen saturation in Arterial blood by Pulse oximetry 2023-07-29 09:45:00 100 /min [facility] Body height 2023-07-29 09:38:00 165.1 cm [facility] Body weight 2023-07-29 09:38:00 97.614 kg [facility] BMI 2023-07-29 09:38:00 35.81 kg/m2 [facility] Systolic blood pressure 2023-07-29 09:30:00 119 mm[Hg] [facility] Diastolic blood pressure 2023-07-29 09:30:00 64 mm[Hg] [facility] Body temperature 2023-07-29 09:30:00 36.67 [facility] Heart rate 2023-06-14 20:00:00 63 /min [facility] Oxygen saturation in Arterial blood by Pulse oximetry 2023-06-14 20:00:00 100 /min [facility] Systolic blood pressure 2023-06-14 18:02:00 112 mm[Hg] [facility] Diastolic blood pressure 2023-06-14 18:02:00 58 mm[Hg] [facility] Body temperature 2023-06-14 18:02:00 36.89 [facility] Respiratory rate 2023-06-14 18:02:00 16 /min [facility] Body height 2023-06-14 17:49:00 165.1 cm [facility] Body weight 2023-06-14 17:49:00 93.35 kg [facility] BMI 2023-06-14 17:49:00 34.25 kg/m2 [facility] Systolic blood pressure 2023-05-03 22:46:00 117 mm[Hg] [facility] Diastolic blood pressure 2023-05-03 22:46:00 70 mm[Hg] [facility] Heart rate 2023-05-03 22:46:00 94 /min [facility] Body temperature 2023-05-03 22:46:00 36.67 [facility] Respiratory rate 2023-05-03 22:46:00 18 /min [facility] Oxygen saturation in Arterial blood by Pulse oximetry 2023-05-03 22:46:00 99 /min [facility] Heart rate 2023-04-18 21:00:00 77 /min [facility] Oxygen saturation in Arterial blood by Pulse oximetry 2023-04-18 21:00:00 100 /min [facility] Systolic blood pressure 2023-04-18 20:00:00 138 mm[Hg] [facility] Diastolic blood pressure 2023-04-18 20:00:00 75 mm[Hg] [facility] Body temperature 2023-04-18 17:42:00 37.33 [facility] Respiratory rate 2023-04-18 17:42:00 16 /min [facility] Body height 2023-04-18 17:42:00 165.1 cm [facility] Body weight 2023-04-18 17:42:00 92.987 kg [facility] BMI 2023-04-18 17:42:00 34.11 kg/m2 [facility] Systolic blood pressure 2023-04-02 13:43:00 122 mm[Hg] [facility] Diastolic blood pressure 2023-04-02 13:43:00 62 mm[Hg] [facility] Heart rate 2023-04-02 13:43:00 98 /min [facility] Body temperature 2023-04-02 13:43:00 36.61 [facility] Respiratory rate 2023-04-02 13:43:00 18 /min [facility] Body height 2023-04-02 13:43:00 165.1 cm [facility] Body weight 2023-04-02 13:43:00 94.575 kg [facility] BMI 2023-04-02 13:43:00 34.70 kg/m2 [facility] Systolic blood pressure 2023-03-11 18:08:00 119 mm[Hg] [facility] Diastolic blood pressure 2023-03-11 18:08:00 68 mm[Hg] [facility] Heart rate 2023-03-11 18:08:00 87 /min [facility] Body temperature 2023-03-11 18:08:00 36.78 [facility] Respiratory rate 2023-03-11 18:08:00 18 /min [facility] Body height 2023-03-11 18:08:00 165.1 cm [facility] Body weight 2023-03-11 18:08:00 93.044 kg [facility] BMI 2023-03-11 18:08:00 34.13 kg/m2 [facility] Systolic blood pressure 2023-02-11 18:05:00 112 mm[Hg] [facility] Diastolic blood pressure 2023-02-11 18:05:00 64 mm[Hg] [facility] Heart rate 2023-02-11 18:05:00 73 /min [facility] Body temperature 2023-02-11 18:05:00 36.78 [facility] Respiratory rate 2023-02-11 18:05:00 18 /min [facility] Body height 2023-02-11 18:05:00 165.1 cm [facility] Body weight 2023-02-11 18:05:00 88.508 kg [facility] BMI 2023-02-11 18:05:00 32.47 kg/m2 [facility] Systolic blood pressure 2022-01-17 03:00:00 119 mm[Hg] [facility] Diastolic blood pressure 2022-01-17 03:00:00 62 mm[Hg] [facility] Heart rate 2022-01-17 03:00:00 68 /min [facility] Respiratory rate 2022-01-17 03:00:00 16 /min [facility] Oxygen saturation in Arterial blood by Pulse oximetry 2022-01-17 03:00:00 100 /min [facility] Body temperature 2022-01-17 02:03:00 37.28 [facility] Body height 2022-01-17 02:03:00 165.1 cm [facility] Body weight 2022-01-17 02:03:00 90.719 kg [facility] BMI 2022-01-17 02:03:00 33.28 kg/m2 [facility] Systolic blood pressure 2019-05-27 20:39:00 107 mm[Hg] [facility] Diastolic blood pressure 2019-05-27 20:39:00 63 mm[Hg] [facility] Heart rate 2019-05-27 20:39:00 77 /min [facility] Body temperature 2019-05-27 20:39:00 36.94 [facility] Respiratory rate 2019-05-27 20:39:00 18 /min [facility] Body height 2019-05-27 20:39:00 165.1 cm [facility] Body weight 2019-05-27 20:39:00 98.431 kg [facility] BMI 2019-05-27 20:39:00 36.11 kg/m2 [facility] Systolic blood pressure 2019-05-27 20:39:00 107 mm[Hg] [facility] Diastolic blood pressure 2019-05-27 20:39:00 63 mm[Hg] [facility] Heart rate 2019-05-27 20:39:00 77 /min [facility] Body temperature 2019-05-27 20:39:00 36.94 Ros[facility] Respiratory rate 2019-05-27 20:39:00 18 /min [facility] Body height 2019-05-27 20:39:00 165.1 cm [facility] Body weight 2019-05-27 20:39:00 98.431 kg [facility] BMI 2019-05-27 20:39:00 36.11 kg/m2 [facility] Systolic blood pressure 2019-05-17 21:39:00 114 mm[Hg] [facility] Diastolic blood pressure 2019-05-17 21:39:00 71 mm[Hg] [facility] Heart rate 2019-05-17 21:39:00 103 /min [facility] Body temperature 2019-05-17 21:39:00 37.11 [facility] Respiratory rate 2019-05-17 21:39:00 18 /min [facility] Body height 2019-05-17 21:39:00 165.1 cm [facility] Body weight 2019-05-17 21:39:00 100.154 kg [facility] BMI 2019-05-17 21:39:00 36.74 kg/m2 [facility] Systolic blood pressure 2019-05-17 21:39:00 114 mm[Hg] [facility] Diastolic blood pressure 2019-05-17 21:39:00 71 mm[Hg] [facility] Heart rate 2019-05-17 21:39:00 103 /min [facility] Body temperature 2019-05-17 21:39:00 37.11 [facility] Respiratory rate 2019-05-17 21:39:00 18 /min [facility] Body height 2019-05-17 21:39:00 165.1 cm [facility] Body weight 2019-05-17 21:39:00 100.154 kg [facility] BMI 2019-05-17 21:39:00 36.74 kg/m2 [facility] Systolic blood pressure 2019-05-04 18:09:00 135 mm[Hg] [facility] Diastolic blood pressure 2019-05-04 18:09:00 68 mm[Hg] [facility] Heart rate 2019-05-04 18:09:00 96 /min [facility] Body temperature 2019-05-04 18:09:00 36.78 [facility] Respiratory rate 2019-05-04 18:09:00 22 /min [facility] Oxygen saturation in Arterial blood by Pulse oximetry 2019-05-04 18:09:00 100 /min [facility] Systolic blood pressure 2019-04-29 21:00:00 127 mm[Hg] [facility] Diastolic blood pressure 2019-04-29 21:00:00 68 mm[Hg] [facility] Heart rate 2019-04-29 21:00:00 87 /min [facility] Body temperature 2019-04-29 21:00:00 36.39 [facility] Respiratory rate 2019-04-29 21:00:00 20 /min [facility] Body height 2019-04-29 21:00:00 165.1 cm [facility] Body weight 2019-04-29 21:00:00 98.431 kg [facility] BMI 2019-04-29 21:00:00 36.11 kg/m2 [facility] Procedures Procedure Date / Time Performed Performing Clinician Source CBC WITH DIFF 2023-09-27 00:33:00 Cruz [facility] CENTRAL NEURAXIAL BLOCK 2023-09-25 09:00:00 Xenia Venegas [facility] URINE DRUG (IMMUNOASSAY) - COMPREHENSIVE DRUG SCREEN 2023-09-25 08:17:00 Cruz [facility] CBC WITH DIFF 2023-09-25 08:05:00 Anthony [facility] HEPATITIS B SURFACE ANTIGEN 2023-09-25 08:05:00 Cruz [facility] HB ABO GROUPING 2023-09-25 08:05:00 Kory Cruz [facility] RHO (D) IMMUNE GLOBULIN 2023-09-25 08:05:00 Anthony [facility] ADC OR BRIDGER ONLY - RPR 2023-09-25 08:05:00 Cruz [facility] HIV 1/2 AG-AB WITH REFLEX 2023-09-25 08:05:00 Anthony [facility] URINE DRUG (IMMUNOASSAY) - COMPREHENSIVE DRUG SCREEN 2023-09-18 22:29:00 Anthony [facility] POCT URINALYSIS W/O SPECIFIC GRAVITY 2023-09-18 00:00:00 Anthony [facility] ASSIGNMENT OF BENEFITS 2023-09-16 10:25:05 Docto r Unassigned, [place] [facility] CONSENT/REFUSAL FOR DIAGNOSIS AND TREATMENT 2023-09-16 10:23:26 Doctor Unassigned, [place] [facility] CBC WITH DIFF 2023-09-16 09:30:00 Jordan Wilkinson [facility] COMP. METABOLIC PANEL (17185) 2023-09-16 08:49:00 Ariela Wilkinson [facility] >14 WEEKS US LIMITED 2023-09-11 22:52:27 Anthony Kory Vasquez [facility] POCT URINALYSIS W/O SPECIFIC GRAVITY 2023-09-11 00:00:00 Kory Cruz [facility] ADC ONLY - FERN TEST 2023-09-08 02:41:00 AdMary bartholomew [facility] POCT URINALYSIS W/O SPECIFIC GRAVITY 2023-08-28 00:00:00 Kory Cruz [facility] SECOND AND THIRD TRIMESTER ULTRASOUND 2023-08-22 19:52:00 Krystal Low [facility] POCT GLUCOSE (AUTOMATED) 2023-08-22 01:43:00 Eloy Chavez [facility] TRANSTHORACIC ECHO (TTE) COMPLETE 2023-08-21 14:54:52 Reynaldo [facility] HB ECG ROUTINE & RHYTHM STRIP 2023-08-21 14:04:01 Reynaldo [facility] THYROID STIMULATING HORMONE 2023-08-21 13:21:00 Mayra Welch [facility] BASIC METABOLIC PANEL (NA, K, CL, CO2, GLUCOSE, BUN, CREATININE, CA) 2023-08-21 13:21:00 Mayra Welch [facility] GLYCOSYLATED HEMOGLOBIN (A1C) 2023-08-21 13:21:00 Tito Pedersen [facility] RUBELLA SCREEN IGG 2023-08-21 13:21:00 Tito Pedersen [facility] VZV ANTIBODY SCREEN 2023-08-21 13:21:00 Tito Pedersen [facility] HEPATITIS B SURFACE ANTIGEN 2023-08-21 13:21:00 Tito Pedersen [facility] HB ABO GROUPING 2023-08-21 13:21:[address] [facility] HIV 1/2 AG-AB WITH REFLEX 2023-08-21 13:21:00 Tito Pedersen [facility] SYPHILIS IGG/IGM 2023-08-21 13:21:00 Tito Pedersen [facility] PROTHROMBIN TIME / INR 2023-08-21 01:40:00 Kory Cruz am [facility] ACTIVATED PARTIAL THRMPLAS BLANCA 2023-08-21 01:40:00 AnthonyKory Pedro [facility] URINE CULTURE 2023-08-21 01:31:00 AnthonyKory Pedro [facility] URINALYSIS 2023-08-21 01:16:00 Kory Cruz [facility] ADC CLC OR LCC ONLY - WET PREP 2023-08-21 01:16:00 [facility] PCR 2023-08-21 01:16:00 [facility] WITH DIFF 2023-08-21 01:15:00 Anthony Kory Pedro [facility] URINE DRUG (IMMUNOASSAY) - COMPREHENSIVE DRUG SCREEN 2023-08-21 01:14:00 [facility] 2023-08-21 01:14:00 Anthony Kory Pedro [facility] GC & CHLAMYDIA AMPLIFIED ASSAY 2023-08-21 01:13:00 [facility] PRO[facility] 2023-08-20 23:58:11 [facility] PELVIS > 14 WEEKS 2023-08-20 23:57:55 Cruz [facility] XR SHOULDER 2+ VW LEFT 2023-08-20 21:31:00 Selwyn Quintero [facility] HOSPITAL ADMISSION 2023-08-20 06:01:00 Doctor Un assigned, [place] [facility] TDAP VACCINE, >11 YRS, IM 2023-08-04 19:02:35 Anthony [facility] FLU VACC ([id number]), 6 MO-64 YRS, .5ML, IM, QUAD (FLUCELVAX) 2023-08-04 19:02:35 Anthony [facility] POCT URINALYSIS W/O SPECIFIC GRAVITY 2023-08-04 00:00:00 Anthony [facility] URINE DRUG (IMMUNOASSAY) - COMPREHENSIVE DRUG SCREEN 2023-07-29 09:49:00 [facility] 2023-07-29 09:49:00 Ariela Wilkinson [facility] US PELVIS > 14 WEEKS 2023-06-14 20:12:00 Kory Cruz [facility] URINALYSIS 2023-06-14 18:55:00 Kory Cruz [facility] ADC ONLY - FERN TEST 2023-06-14 18:55:00 Kory Cruz [facility] ASSIGNMENT OF BENEFITS 2023-06-14 17:37:47 Docto r Unassigned, [place] [facility] CONSENT/REFUSAL FOR DIAGNOSIS AND TREATMENT 2023-06-14 17:36:34 Doctor Unassigned, [place] [facility] SECOND AND THIRD TRIMESTER ULTRASOUND 2023-05-28 21:05:00 Krystal Low [facility] SECOND AND THIRD TRIMESTER ULTRASOUND 2023-05-28 20:25:00 Krystal Low [facility] URINE DRUG (IMMUNOASSAY) - COMPREHENSIVE DRUG SCREEN 2023-04-18 18:48:00 Jaja [facility] ADC CLC OR LCC ONLY - WET PREP 2023-04-18 18:48:00 Jaja [facility] CONSENT/REFUSAL FOR DIAGNOSIS AND TREATMENT 2023-04-18 16:42:47 Doctor Unassigned, [place] [facility] POCT URINALYSIS 2023-04-02 13:44:00 Krystal Low [facility] EXTERNAL PROVIDER RECORDS 2023-03-21 05:01:00 Doctor Unassigned, [place] [facility] POCT URINALYSIS 2023-03-11 18:00:00 Krystal Low [facility] AUTHORIZATION FOR RELEASE OF PHI 2023-03-11 05:01:00 Doctor Unassigned, [place] [facility] POCT URINALYSIS W/O SPECIFIC GRAVITY 2023-02-11 18:03:00 Krystal Low [facility] POCT TEST 2023-02-11 18:02:00 Rhona Low [facility] REPORT OF 2023-02-11 05:01:00 Doctor Kiran harper, [place] [facility] LIPASE 2022-01-17 03:09:[address] [facility] COMP. METABOLIC PANEL ([id number]) 2022-01-17 03:09:00 Yvonne Siddiqi [facility] CBC WITH DIFF 2022-01-17 03:09:00 Yvonne Siddiqi [facility] POCT TEST 2022-01-17 02:14:00 Lakhwinder Weiner [facility] URINALYSIS 2022-01-17 02:10:00 Abraham Weiner [facility] NOTICE OF PRIVACY PRACTICES 2022-01-17 01:36:28 Doctor Unassigned, [place] [facility] CONSENT/REFUSAL FOR DIAGNOSIS AND TREATMENT 2022-01-17 01:36:18 Doctor Unassigned, [place] [facility] TDAP (ADACEL) IMMUNIZATION 2019-05-27 20:41:37 Josy Chaudhary [facility] US ABDOMEN LIMITED 2019-05-17 22:45:16 Josy Chaudhary [facility] ASSIGNMENT OF BENEFITS 2019-05-17 22:12:10 Docto r Unassigned, [place] [facility] URINALYSIS 2019-05-04 18:55:00 Kory Cruz [facility] ADC CLC OR LCC ONLY - WET PREP 2019-05-04 18:55:00 Kory Cruz [facility] ADC ONLY - FERN TEST 2019-05-04 18:54:00 Kory Cruz [facility] CONSENT/REFUSAL FOR DIAGNOSIS AND TREATMENT 2019-05-04 17:47:16 Doctor Unassigned, [place] [facility] Encounters Start Date/Time End Date/Time Encounter Type Admission Type Attending Clinicians Care Facility Care Department Encounter ID Source 2023-09-16 06:18:56 Outpatient X [facility] [id number] [facility] 2023-07-29 06:14:02 Outpatient X [facility] [id number] [facility] 2023-04-18 17:24:48 Outpatient X [facility] [id number] [facility] 2022-08-02 05:16:57 Emergency [facility] [id number] [facility] ent 2021-07-08 14:21:14 Outpatient [facility] [id number] [facility] 2023-11-28 00:00:00 2023-11-28 00:00:00 Patient Secure Msg Doctor Unassigned, [place] [facility] 1..840.114 350.1.13.10 4.2.7.2.686 [id number] 134 [id number] [facility] 2023-11-21 00:00:00 2023-11-21 00:00:00 Telephone Kory Cruz [facility] 1..840.114 350.1.13.10 4.2.7.2.686 [id number] 134 [id number] [facility] 2023-11-15 00:00:00 2023-11-15 00:00:00 Telephone Kory Cruz [facility] 1..840.114 350.1.13.10 4.2.7.2.686 [id number] 134 [id number] [facility] 2023-10-10 10:30:00 2023-10-10 12:02:47 Outpatient R KORY CRUZ [facility] [id number] [facility] 2023-10-10 10:30:00 2023-10-10 12:02:47 Routine Visit Kory Cruz [facility] 1..840.114 350.1.13.10 4.2.7.2.686 [id number] 134 [id number] [facility] 2023-10-10 00:00:00 2023-10-10 00:00:00 Patient Secure Msg Doctor Unassigned, [place] [facility] 1.2.840.114 350.1.13.10 4.2.7.2.686 [id number] 134 [id number] [facility] 2023-10-09 00:00:00 2023-10-09 00:00:00 Telephone Kory Cruz [facility] 1..840.114 350.1.13.10 4.2.7.2.686 [id number] 134 [id number] [facility] 2023-10-09 00:00:00 2023-10-09 00:00:00 Patient Secure Msg Doctor Unassigned, [place] [facility] 1..840.114 350.1.13.10 4.2.7.2.686 [id number] 134 [id number] [facility] 2023-09-25 01:05:00 2023-09-27 12:55:00 Inpatient X KORY CRUZ [facility] [id number] [facility] 2023-09-25 01:05:00 2023-09-27 12:55:00 Hospital Encounter Kory Cruz [facility] 1..840.114 350.1.13.10 4.2.7.2.686 [id number] [facility] 2023-09-25 16:00:00 2023-09-25 16:00:00 Outpatient R KORY CRUZ [facility] [id number] [facility] 2023-09-25 03:00:00 2023-09-25 08:52:00 Anesthesia Event Xenia Angel Michelle [facility] 1..840.114 350.1.13.10 4.2.7.2.686 [id number] [facility] 2023-09-24 00:00:00 2023-09-24 00:00:00 Telephone Kory Cruz [facility] 1..840.114 350.1.13.10 4.2.7.2.686 [id number] 134 [id number] [facility] [facility] 2023-09-19 00:10:00 2023-09-19 00:10:00 Outpatient P CANO-EVER S, ARIELA CANO-EVER S, ARIELA [facility] [id number] [facility] 2023-09-18 15:15:00 2023-09-18 16:21:53 Outpatient R KORY CRUZ [facility] [id number] [facility] 2023-09-18 15:15:00 2023-09-18 16:21:53 Routine Visit Kory Cruz [facility] 1..840.114 350.1.13.10 4.2.7.2.686 [id number] [facility] 2023-09-16 01:28:00 2023-09-16 03:45:00 Outpatient X CANO-EVER S, ARIELA CANO-EVER S, ARIELA [facility] [id number] [facility] 2023-09-16 01:28:00 2023-09-16 03:45:00 Emergency Cano-Ever s, Ariela [facility] 1..840.114 350.1.13.10 4.2.7.2.686 [id number] [facility] 2023-09-11 16:15:00 2023-09-11 16:50:18 Outpatient R KORY CRUZ [facility] [id number] [facility] 2023-09-11 16:15:00 2023-09-11 16:50:18 Routine Visit Kory Cruz [facility] 1.2.840.114 350.1.13.10 4.2.7.2.686 [id number] [facility] 2023-09-11 14:45:00 2023-09-11 15:00:00 Training Development Manager Visit 2, [facility] Kory Cruz [facility] 1.2.840.114 350.1.13.10 4.2.7.2.686 [id number] [facility] 2023-09-11 11:00:00 2023-09-11 11:00:00 Outpatient R KORY CRUZ [facility] [id number] [facility] 2023-09-09 16:00:00 2023-09-09 16:00:00 Outpatient R KORY CRUZ [facility] [id number] [facility] 2023-09-08 00:00:00 2023-09-08 00:00:00 Telephone Kory Cruz [facility] 1.2.840.114 350.1.13.10 4.2.7.2.686 [id number] [facility] 2023-09-07 20:22:00 2023-09-07 22:06:00 Outpatient X MARY AVINA [facility] [id number] [facility] 2023-09-07 20:22:00 2023-09-07 22:06:00 Emergency Mary Avina [facility] 1.2.840.114 350.1.13.10 4.2.7.2.686 [id number] [facility] 2023-09-03 15:18:00 2023-09-03 17:33:00 Outpatient X KORY CRUZ [facility] [id number] [facility] 2023-09-03 15:18:00 2023-09-03 17:33:00 Emergency Kory Cruz [facility] 1.2.840.114 350.1.13.10 4.2.7.2.686 [id number] [id number] [facility] 2023-09-02 14:23:00 2023-09-02 15:18:00 Outpatient P MARY AVINA [facility] [id number] [facility] 2023-09-02 14:23:00 2023-09-02 15:18:00 Hospital Encounter Mary Avina [facility] 1.0.114 350.1.13.10 4.2.7.2.686 [id number] [facility] 2023-08-28 10:45:00 2023-08-28 11:28:38 Outpatient R ANTHONY KORY [facility] [id number] [facility] 2023-08-28 10:45:00 2023-08-28 11:28:38 Routine Visit Kory Cruz [facility] 1..114 350.1.13.10 4.2.7.2.686 [id number] [facility] 2023-08-20 15:22:00 2023-08-22 16:30:00 Outpatient X ELOY CHAVEZ [facility] [id number] [facility] 2023-08-20 15:22:00 2023-08-22 16:30:00 Emergency QuinteroNacho Vien Cam Omere, Chasey Ikuvbogie Pacheco, Luis Diego [facility] 1..114 350.1.13.10 4.2.7.2.686 [id number] 135 [id number] [facility] 2023-08-22 13:00:00 2023-08-22 13:54:45 Training Development Manager Visit 2, [facility] Kristal Alfredo Shannon M [facility] 1..114 350.1.13.10 4.2.7.2.686 [id number] [facility] 2023-08-21 20:00:01 2023-08-21 20:00:01 Anesthesia Event Xenia Angel [facility] 1.84.114 350.1.13.10 4.2.7.2.686 [id number] [id number] [facility] 2023-08-18 14:15:00 2023-08-18 14:15:00 Outpatient R KORY CRUZ [facility] [id number] [facility] 2023-08-08 13:45:00 2023-08-08 13:45:00 Outpatient R [facility] [id number] [facility] 2023-08-06 00:00:00 2023-08-06 00:00:00 Patient Secure Msg Doctor Unassigned, Nerstrand [facility] 1.114 350.1.13.10 4.2.7.2.686 [id number] [facility] 2023-08-04 10:00:00 2023-08-04 11:00:40 Outpatient R ANTHONY KORY [facility] [id number] [facility] 2023-08-04 10:00:00 2023-08-04 11:00:40 Initial Visit Kory Cruz [facility] 1.84.114 350.1.13.10 4.2.7.2.686 [id number] [facility] 2023-07-29 03:10:00 2023-07-29 06:05:00 Outpatient X CANO-EVER S, ARIELA CANO-EVER S, ARIELA [facility] [id number] [facility] 2023-07-29 03:10:00 2023-07-29 06:05:00 Emergency Cano-Ever s, Ariela [facility] 1.284.114 350.1.13.10 4.2.7.2.686 [id number] [id number] [facility] 2023-07-27 00:00:00 2023-07-27 00:00:00 Nurse Triage NurseSuyapa [facility] 1.2.840.114 350.1.13.10 4.2.7.2.686 [id number] [facility] 2023-06-21 00:00:00 2023-06-21 00:00:00 Krystal Ortega [facility] CONTACT CENTER TEAM LEAD [facility] MATERNAL & CHILD [facility] 1.2.840.114 350.1.13.10 4.2.7.2.686 [id number] [facility] 2023-06-14 12:51:00 2023-06-14 15:30:00 Outpatient X KORY CRUZ [facility] [id number] [facility] 2023-06-14 12:51:00 2023-06-14 15:30:00 Emergency Kory Cruz [facility] 1.2.840.114 350.1.13.10 4.2.7.2.686 [id number] [id number] [facility] 2023-06-14 00:00:00 2023-06-14 00:00:00 Nurse Triage Heidi Christianson [facility] 1.2.840.114 350.1.13.10 4.2.7.2.686 [id number] [id number] [facility] 2023-06-14 00:00:00 2023-06-14 00:00:00 Orders Only Doctor Unassigned, [place] [facility] 1.2.840.114 350.1.13.10 4.2.7.2.686 [id number] [facility] 2023-06-03 00:00:00 2023-06-03 00:00:00 Telephone Huy Mendoza [facility] CONTACT CENTER TEAM LEAD [facility] MATERNAL & CHILD [facility] 1.2.840.114 350.1.13.10 4.2.7.2.686 [id number] 107 [id number] [facility] 2023-06-02 15:30:00 2023-06-02 15:30:00 Outpatient HUY FRIAS [facility] [id number] [facility] 2023-05-30 00:00:00 2023-05-30 00:00:00 Case Management Krystal Low [facility] CONTACT CENTER TEAM LEAD [facility] & CHILD [facility] 1.2.840.114 350.1.13.10 4.2.7.2.686 [id number] [facility] 2023-05-28 14:00:00 2023-05-28 15:19:04 Outpatient P SHELLEY SANCHEZ [facility] [id number] [facility] 2023-05-28 14:00:00 2023-05-28 15:19:04 Training Development Manager Visit Ultrasound, Arnulfojuliette vee [facility] CONTACT CENTER TEAM LEAD [facility] & CHILD [facility] 1.2.840.114 350.1.13.10 4.2.7.2.686 [id number] [facility] 2023-05-21 00:00:00 2023-05-21 00:00:00 Refill Krystal Low [facility] CONTACT CENTER TEAM LEAD [facility] & CHILD [facility] 1.2.840.114 350.1.13.10 4.2.7.2.686 [id number] 107 [id number] [facility] 2023-05-21 00:00:00 2023-05-21 00:00:00 Telephone Krystal Low [facility] CONTACT CENTER TEAM LEAD [facility] CHILD [facility] 1.2.840.114 350.1.13.10 4.2.7.2.686 [id number] [facility] 2023-05-20 15:30:00 2023-05-20 15:30:00 Outpatient R HUY MENDOZA [facility] [id number] [facility] 2023-05-16 09:45:00 2023-05-16 09:45:00 Outpatient R KRYSTAL LOW [facility] [id number] [facility] 2023-05-03 17:42:00 2023-05-03 18:57:00 Outpatient X CANO-EVER S, ARIELA CANO-EVER S, ARIELA [facility] [id number] [facility] 2023-05-03 17:42:00 2023-05-03 18:57:00 Emergency Cano-Ever s, Ariela [facility] 1.2.840.114 350.1.13.10 4.2.7.2.686 [id number] [facility] 2023-04-30 10:45:00 2023-04-30 10:45:00 Outpatient R KRYSTAL LOW [facility] [id number] [facility] 2023-04-18 12:18:00 2023-04-18 16:05:00 Outpatient X CANO-EVER S, ARIELA CANO-EVER S, ARIELA [facility] [id number] [facility] 2023-04-18 12:18:00 2023-04-18 16:05:00 Emergency Cano-Ever sIrlandaAriela [facility] 1.2.840.114 350.1.13.10 4.2.7.2.686 [id number] [facility] 2023-04-17 00:00:00 2023-04-17 00:00:00 Telephone Krystal Low [facility] CONTACT CENTER TEAM LEAD [facility] MATERNAL & [facility] 1.2.840.114 350.1.13.10 4.2.7.2.686 [id number] [facility] 2023-04-17 00:00:00 2023-04-17 00:00:00 Patient Secure Msg Krystal Low [facility] CONTACT CENTER TEAM LEAD [facility] & CHILD [facility] 1.2.840.114 350.1.13.10 4.2.7.2.686 [id number] [facility] 2023-04-08 12:45:00 2023-04-08 12:45:00 Outpatient R KRYSTAL LOW [facility] [id number] [facility] 2023-04-07 00:00:00 2023-04-07 00:00:00 Case Management Krystal Low [facility] CONTACT CENTER TEAM LEAD [facility] & CHILD [facility] 1..840.114 350.1.13.10 4.2.7.2.686 [id number] [facility] 2023-04-03 10:30:00 2023-04-03 10:30:00 Outpatient R KRYSTAL LOW [facility] [id number] [facility] 2023-04-03 00:00:00 2023-04-03 00:00:00 Refill Krystal Low [facility] CONTACT CENTER TEAM LEAD [facility] & CHILD [facility] 1..840.114 350.1.13.10 4.2.7.2.686 [id number] [facility] 2023-04-02 08:45:00 2023-04-02 09:15:48 Outpatient R KRYSTAL LOW [facility] [id number] [facility] 2023-04-02 08:45:00 2023-04-02 09:15:48 Routine Visit Krystal Low [facility] CONTACT CENTER TEAM LEAD [facility] & CHILD [facility] 1.2.840.114 350.1.13.10 4.2.7.2.686 [id number] [facility] 2023-03-21 00:00:00 2023-03-21 00:00:00 Case Management Krystal Low [facility] CONTACT CENTER TEAM LEAD [facility] CHILD [facility] 1.2.840.114 350.1.13.10 4.2.7.2.686 [id number] [facility] 2023-03-21 00:00:00 2023-03-21 00:00:00 Orders Only Doctor Unassigned, [place] [facility] 1.2.840.114 350.1.13.10 4.2.7.2.686 [id number] [facility] 2023-03-19 00:00:00 2023-03-19 00:00:00 [facility] 1.2840.114 350.1.13.10 4.2.7.2.686 [id number] [facility] 2023-03-11 12:45:00 2023-03-11 13:26:33 Outpatient R KRYSTAL LOW [facility] [id number] [facility] 2023-03-11 12:45:00 2023-03-11 13:26:33 Routine Visit Krystal Low [facility] 1.2840.114 350.1.13.10 4.2.7.2.686 [id number] 107 [id number] [facility] 2023-03-11 00:00:00 2023-03-11 00:00:00 Orders Only Doctor Unassigned, [place]erstrand [facility] 1.2840.114 350.1.13.10 4.2.7.2.686 [id number] [id number] [facility] 2023-02-18 00:00:00 2023-02-18 00:00:00 [facility]AD [facility] 1.2.840.114 350.1.13.10 4.2.7.2.686 [id number] 107 [id number] [facility] 2023-02-14 00:00:00 2023-02-14 00:00:00 Case Management Krystal Low [facility] CONTACT CENTER TEAM LEAD [facility] & CHILD [facility] 1.2.840.114 350.1.13.10 4.2.7.2.686 [id number] [facility] 2023-02-14 00:00:00 2023-02-14 00:00:00 Telephone Krystal Low [facility] CONTACT CENTER TEAM LEAD [facility] CHILD [facility] 1.2.840.114 350.1.13.10 4.2.7.2.686 [id number] 107 [id number] [facility] 2023-02-11 13:00:00 2023-02-11 14:23:32 Initial Visit Kennedyariel Krystal A [facility] 1.2.840.114 350.1.13.10 4.2.7.2.686 [id number] [facility] 2023-02-11 12:30:00 2023-02-11 13:21:27 Outpatient R KENNEDYARIEL KRYSTAL [facility] [id number] [facility] 2023-02-11 00:00:00 2023-02-11 00:00:00 Orders Only Doctor Unassigned, [place] [facility] 1.2.840.114 350.1.13.10 4.2.7.2.686 [id number] [facility] 2023-02-10 08:30:00 2023-02-10 08:30:00 Outpatient R HUY MENDOZA [facility] [id number] [facility] 2022-01-16 21:05:00 2022-01-17 00:11:00 Emergency X YVONNE SIDDIQI [facility] ERT [id number] [facility] 2022-01-16 21:05:00 2022-01-17 00:11:00 Emergency Yvonne Siddiqi [facility] 1.2.840.114 350.1.13.10 4.2.7.2.686 [id number] [facility] 2021-07-25 00:00:00 2021-07-25 00:00:00 Patient Secure Msg Doctor Unassigned, [place] [facility] 1.2.840.114 350.1.13.10 4.2.7.2.686 [id number] [facility] 2021-04-19 13:15:00 2021-04-19 13:15:00 Outpatient R HUY MENDOZA [facility] [id number] [facility] 2021-02-06 00:00:00 2021-02-06 00:00:00 Case Management Simi Jenniferalee Rios 1.2.840.114 350.1.13.10 4.2.7.2.686 [id number] [id number] [facility] 2021-02-06 00:00:00 2021-02-06 00:00:00 Case Management SimiIrlandaJenniferalee [place] 1.2.840.114 350.1.13.10 4.2.7.2.686 [id number] 2020-12-12 00:00:00 2020-12-12 00:00:00 Patient Outreach Broderick Melton [facility] 1.2.840.114 350.1.13.10 4.2.7.2.686 [id number] 2020-12-12 00:00:00 2020-12-12 00:00:00 Patient Outreach Broderick Melton Leon [facility] 1.2.840.114 350.1.13.10 4.2.7.2.686 [id number] [facility] 2020-02-28:00:00 2020-02-28 15:00:00 Outpatient R JOSY CHAUDHARY [facility] [id number] [facility] 2019-12-18 17:30:00 2019-12-18 17:30:00 Outpatient R KRISSY GRENE [facility] [id number] [facility] 2019-11-18 14:30:00 2019-11-18 14:30:00 Outpatient R JOSY CHAUDHARY [facility] [id number] [facility] 2019-05-27 14:41:30 2019-05-27 15:54:53 Routine Visit Josy Chaudhary [facility] 1.2.840.114 350.1.13.10 4.2.7.2.686 [id number] 134 [id number] 2019-05-27 14:41:30 2019-05-27 15:54:53 Routine Visit Josy Chaudhary [facility] 1.2.840.114 350.1.13.10 4.2.7.2.686 [id number] 134 [id number] [facility] 2019-05-17 17:15:00 2019-05-17 23:59:00 Hospital Encounter Zaid Josy [facility] 1.2.840.114 350.1.13.10 4.2.7.2.686 [id number] [facility] 2019-05-17 17:21:30 2019-05-17 17:36:30 Training Development Manager Visit 1, Adc Lab Kory Cruz [facility] 1.2.840.114 350.1.13.10 4.2.7.2.686 [id number] [facility] 2019-05-17 15:55:01 2019-05-17 16:56:25 Office Visit Zaid [facility] 1.2.840.114 350.1.13.10 4.2.7.2.686 [id number] 2019-05-17 15:55:01 2019-05-17 16:56:25 Office Visit Josy Chaudhary [facility] 1.2.840.114 350.1.13.10 4.2.7.2.686 [id number] 134 [id number] [facility] 2019-05-17 00:00:00 2019-05-17 00:00:00 Orders Only Doctor Unassigned, [place]strand [facility] 1.2.840.114 350.1.13.10 4.2.7.2.686 [id number] [facility] 2019-05-05 00:00:00 2019-05-05 00:00:00 Telephone Josy Chaudhary [facility] 1.2.840.114 350.1.13.10 4.2.7.2.686 [id number] 134 [id number] [facility] 2019-05-04 15:07:01 2019-05-04 15:22:01 Training Development Manager Visit 1, Adc Lab Kory Cruz [facility] 1.2.840.114 350.1.13.10 4.2.7.2.686 [id number] [facility] 2019-05-04 12:48:00 2019-05-04 14:57:00 Hospital Encounter Kory Cruz [facility] 1.2.840.114 350.1.13.10 4.2.7.2.686 [id number] [facility] 2019-05-04 00:00:00 2019-05-04 00:00:00 Telephone Josy Chaudhary [facility] 1.2.840.114 350.1.13.10 4.2.7.2.686 [id number] [facility] 2019-05-04 00:00:00 2019-05-04 00:00:00 Orders Only Doctor Unassigned, [place]strand [facility] 1.2840.114 350.1.13.10 4.2.7.2.686 [id number] [facility] 2019-04-30 00:00:00 2019-04-30 00:00:00 Case Management Josy Chaudhary [facility] 1.0.114 350.1.13.10 4.2.7.2.686 [id number] [facility] 2019-04-29 15:40:17 2019-04-29 16:18:51 Routine Visit Kory Cruz [facility] 1.284.114 350.1.13.10 4.2.7.2.686 [id number] [facility] Results Test Description Test Time Test Comments Results Result Co mments Source [facility]D) IMMUNE [id number] 16:36:33* Test Item Value Reference Range Interpretation Comme nts RHIG CANDIDATE? (test code = 5188) No- see comment Patient is not a candidate for RhIg- Patient is Rh Positive.Performed at [facility] Laboratory Services - ADC Blood [address] [place], [place] [id number] Free: [phone] No. [id number] [facility] HospitalHepatitis B Surface Czmaqvv7597-06-31 12:56:12 * Test Item Value Reference Range Interpretation Comme nts HBsAg Semi-Quantitative (fredy t code = 5195-3) 0.10 Negative [facility]/2 Ag-Ab with Kvhqmh2124-37-29 09:08:51* Test Item Value Reference Range Interpretation Comme nts HIV Semi-quantitative (test code = 25316-7) 0.18 Negative TIERRA (test code = TIERRA) Non-reactive for HIV-1 antigen and HIV-1/HIV-2 antibodies. ?No laboratory evidence of HIV infection. ?Repeat in 2-4 weeks if acute HIV infection is suspected. [facility] Kzlcb4798-78-81 09:00:00 Xenia Angel MD ? ? 09/25/2023 [...] air and catheter ?Guidance with: landmark technique}Epidural/Spinal [place] and/or Catheter: ?Epidural/Spinal Kit: BBraun ?Needle Type: [...] mastisol then tegaderm and tape. No apparent complications.[facility] HospitalType and Screen - ONCE [id number] 08:11:00* Test Item Value Reference Range Interpretation Comme nts ABO & RH (test code = 20) O Positive IAT (test code = 1185) Negative [facility] HospitalPOCT Urinalysis w/o Specific [id number] 22:26:00* Test Item Value Reference Range Interpretation [...] = 3257) n/a Negative - Negati ve [facility] HospitalComp. Metabolic Panel (17962)2023-09-16 10:09:50* Test Item Value Reference Range Interpretation Comme nts NA (test code = 9259555004) 135 mmol/L 135-145 K (test code = 0456089207) 3.6 mmol/L 3.5-5.0 CL (test code = 4975529193) 105 mmol/L 98-108 CO2 TOTAL (test code = 7125176796) 25 mmol/L 23-31 AGAP (test code = 4593044454) 5 2-16 BUN (test code = 3767738632) 4 mg/dL 7-23 L GLUCOSE (test code = 0522776950) 88 mg/dL 70-110 CREATININE (test code = 5472269354) 0.49 mg/dL 0.50-1.04 L TOTAL BILI (test code = 2040158287) 1.1 mg/dL 0.1-1.1 CALCIUM (test code = 7074823769) 8.6 mg/dL 8.6-10.6 T PROTEIN (test code = 6233895067) 6.7 g/dL 6.3-8.2 ALBUMIN (test code = 7814765458) 3.3 g/dL 3.5-5.0 L ALK PHOS (test code = 1700871600) 131 U/L 34-122 H ALTv (test code = 1742-6) 17 U/L 5-35 AST(SGOT) (test code = 2277461503) 25 U/L 13-40 eGFR (test code = 98097-5) 135.2 mL/min/1.73m2 CKD-EPI eGFR (2020). Assuming creatinine has been stable day-to-day for at least three months, the eGFR indicates Category G1 (>= 90 mL/min/1.73 m2) Lab Interpretation (test code = 50548-7) Abnormal [facility] with [id number] 09:36:47* Test Item Value Reference Range Interpretation Comme nts WBC (test code = 6690-2) 6.44 See_Comment [Automated [employer]] The system which generated this result transmitted reference range: 4.30 - 11.10 10*3/?L. The reference range was not used to interpret this result as normal/abnormal. RBC (test code = 789-8) 3.72 See_Comment L [Automated [employer]] The system which generated this result transmitted [...] g/dL 31.6-35.1 L RDW-SD (test code = 21985-8) 47.0 fL 39.0-49.9 RDW-CV (test code = 788-0) 17.6 % 12.0-15.5 H PLT (test code = 777-3) 184 See_Comment [Automated messa ge] The system which generated this result transmitted reference range: 166 - 358 10*3/?L. The reference range was not used to interpret this result as normal/abnormal. MPV (test code = 97724-3) 10.1 fL 9.5-12.9 NRBC/100 WBC (test code = 0553458868) 0.0 See_Comment [Automated [place] [employer]] The system which generated this result transmitted reference range: 0.0 - 10.0 /100 WBCs. The reference range was not used to interpret this result as normal/abnormal. NRBC x10^3 (test code = 6006866092) See_Comment [Automated [employer] ge] The system which generated this result transmitted reference range: 10*3/?L. The reference range was not used to interpret this result as normal/abnormal. GRAN MAT (NEUT) % (test code = 770-8) 66.7 % IMM GRAN % (test code = 3306682567) 0.80 % LYMPH % (test code = 736-9) 24.1 % MONO % (test code = 5905-5) 6.5 % EOS % (test code = 713-8) 1.6 % BASO % (test code = 706-2) 0.3 % GRAN MAT x10^3(ANC) (test code = 3515885079) 4.30 10*3/uL 1.88-7.09 IMM GRAN x10^3 (test code = 9826111867) 0.05 10*3/uL 0.00-0.06 LYMPH x10^3 (test code = 731-0) 1.55 10*3/uL 1.32-3.29 MONO x10^3 (test code = 742-7) 0.42 10*3/uL 0.33-0.92 EOS x10^3 (test code = 711-2) 0.10 10*3/uL 0.03-0.39 BASO x10^3 (test code = 704-7) 0.01-0.07 Lab Interpretation (test code = 94529-2) Abnormal [facility] Urinalysis w/o Specific [id number] 22:18:00* Test Item Value Reference Range Interpretation [...] = 3257) n/a Negative - Negati ve [facility] URINALYSIS W/O SPECIFIC [id number] 17:06:00* Test Item Value Reference Range Interpretation [...] = 3257) n/a Negative - [facility] [id number] 15:22:41* Test Item Value Reference Range Interpretation Comme [facility] VZV IgG antibody (test code = 14766-0) Negative Negative TIERRA (test code = TIERRA) Positive - Indicat es the patient was exposed to VZV through infection or vaccination.Negative - Indicates the patient could be susceptible to VZV infection.Equivocal - A second specimen should be sent for testing. [facility] HospitalRUBELLA SCREEN GHX3027-27-36 15:22:41* Test Item Value Reference Range Interpretation Comme [facility] Rubella screen IgG (test code = 5025187647) Positive Negative TIERRA (test code = TIERRA) Positive - Indicat es the patient was exposed to Rubella through infection or vaccination.Negative - Indicates the patient could be susceptible to Rubella infection.Equivocal - A second specimen should be sent. [facility] HospitalSYPHILIS IGG/DSA4515-14-04 15:21:40* Test Item Value Reference Range Interpretation Comme [facility] Syphilis IgG/IgM (test code = 03437-6) Non-reactive Non-reactive TIERRA (test code = TIERRA) Non-reactive - No serologic evidence of T. pallidum infection. Cannot exclude incubating or early syphilis. Submit a second specimen in 2-4 weeks if syphilis is clinically suspected. Equivocal - Further testing to follow. Reactive - Further testing to follow. Lab Interpretation (test code = 56325-0) Normal [facility]PO[facility] (AUTOMATED)2023-08-22 01:48:28* Test Item Value Reference Range Interpretation Comme [facility] POCT GLU (test code = 8119122703) 133 mg/dL 70-110 H Lab Interpretation (test cod e = 14151-7) Abnormal [facility] HospitalTransthoracic echo (TTE)2023-08-21 20:30:27* Test Item Value Reference Range Interpretation Comme [facility] Height (test code = 9186541385) 65 in Weight (test code = 0362271867) 219 lbs Systolic BP (test code = 7498667155) 106 mmHg Diastolic BP (test code = 1549323272) 60 mmHg Heart Rate (test code = 5997514202) 90 bpm LVOT stroke volume (test code = 5079156440) 55.30 cm3 EF(Teich) (test code = 0443343186) 74.90 % LVIDD (test code = 8139590434) 5.20 cm LVIDS (test code = 2611817173) 2.90 cm Left Ventricular End Systolic Volume by Teichholz Method (test code = 9168335) 32.2 mL Left Ventricular End Diastolic Volume by Teichholz Method (test code = 0457586) 128.3 mL IVS (test code = 5463159227) 0.66 cm LVPWD (test code = 8710448695) 1.10 cm LVOT diameter (test code = 6214330225) 1.86 cm LVOT area (test code = 3974769876) 2.70 cm2 FS (test code = 3683929690) 44 % MV Peak E Lakshmi (test code = 2276413551) 97.3 cm/s MV Peak A Lakshmi (test code = 8713866753) 80.6 cm/s E/A ratio (test code = 7808433404) 1.21 ratio E wave decelartion time (test code = 1921662374) 0.19 s MV E/e' septal (test code = 0566111276) 11.6 cm/s LA Volume Index (BP) (test code = 7116003543) 37.1 mL/m2 LA volume (BP) (test code = 0768023456) 76.3 mL LVOT peak lakshmi (test code = 8035782818) 108.4 cm/s LVOT mn grad (test code = 3695310542) 2.5 mmHg BSA (test code = 5408793553) 2.06 m2 LA size (test code = 0267998320) 4.0 cm LAV(MOD-sp2) (test code = 9356759809) 54.20 mL LAV(MOD-sp4) (test code = 9512473491) 82.70 mL Tapse (test code = 9840742363) 2.35 cm AV LVOT peak gradient (test code = 5294283547) 4.7 mmHg LVOT peak VTI (test code = 6293896776) 20.3 cm LV V1 mean (test code = 4175282832) 74.60 cm/s MV Prop V (test code = 2755089282) 70.10 cm/s Ao root diam (test code = 5664408567) 3.60 cm Aortic root (test code = 5433835183) 3.6 cm Ao root annulus (test code = 1104642754) 3.6 cm PW (test code = 5542673524) 1.10 cm 0.6-1.1 EF - 2D (test code = 33542045) 74.90 % Interventricular Septum Diastolic Thickness by 2D (test code = 3478142) 0.66 cm Aortic valve mean velocity (test code = 1878244947) 123.5 cm/s Ao peak lakshmi (test code = 4016879687) 177.8 cm/s Ao VTI (test code = 5888008971) 34.6 cm AV area by cont VTI (test code = 3474783371) 1.6 cm2 AV area peak lakshmi (test code = 2410544868) 1.7 cm2 Ao max PG (test code = 0994864859) 12.60 mm[Hg] AV peak gradient (test code = 7037848219) 12.6 mmHg AV valve area (test code = 9910229932) 1.60 cm2 AV mean gradient (test code = 9055421365) 6.5 mmHg MV mean gradient (test code = 7212130588) 1.45 mmHg MV peak gradient (test code = 0190134372) 3.0 mmHg MV pk lakshmi (test code = 1868168035) 86.1 cm/s MV valve area by continuity eq (test code = 4573286682) 2.70 cm2 MV VTI (test code = 3690325135) 20.5 cm MV V2 mean (test code = 7226107751) 56.30 cm/s Radiology Study observation (narrative) (test code = 69965-2) TIERRA (test code = TIERRA) ?Left?Ventricle: Left ventricle size is normal. Increased wall thickness. There is concentric remodeling. Normal wall motion. Hyperdynamic systolic function with a visually estimated EF of 65 - 70%. Normal diastolic function. ?Right?Ventricle: Right ventricle size is normal. Normal systolic function. TAPSE is 2.35 cm. Roscoe Cuellar, [facility] – CORDELLardiovascular Medicine FellowBoone County Community Hospital VentricleLeft ventricle size is normal. Increased [...] apical, parasternal and subcostal views were obtained. [facility] HospitalTHYROID STIMULATING UKJPLOE0852-05-00 17:48:00 * Test Item Value Reference Range Interpretation Comme nts TSH (test code = 9989558234) 0.51 See_Comment [Automated messa ge] The system which generated this result transmitted reference range: 0.45 - 4.70 mIU/L. The reference range was not used to interpret this result as normal/abnormal. Lab Interpretation (test code = 82004-7) Normal [facility] METABOLIC PANEL (NA, K, CL, CO2, GLUCOSE, BUN, CREATININE, CA)2023-08-21 17:14:33* Test Item Value Reference Range Interpretation Comme nts NA (test code = 6699389854) 132 mmol/L 135-145 L K (test code = 0017202349) 4.0 mmol/L 3.5-5.0 CL (test code = 8530943933) 106 mmol/L 98-108 CO2 TOTAL (test code = 4874763536) 17 mmol/L 23-31 L AGAP (test code = 8847552268) 9 2-16 BUN (test code = 7555239659) 5 mg/dL 7-23 L GLUCOSE (test code = 0320572347) 75 mg/dL 70-110 CREATININE (test code = 6959991269) 0.44 mg/dL 0.50-1.04 L CALCIUM (test code = 5775225475) 8.4 mg/dL 8.6-10.6 L eGFR (test code = 12343-6) 138.7 mL/min/1.73m2 CKD-EPI eGFR (2020). Assuming creatinine has been stable day-to-day for at least three months, the eGFR indicates Category G1 (>= 90 mL/min/1.73 m2) Lab Interpretation (test code = 28972-9) Abnormal [facility] HospitalHIV 1/2 AG-AB WITH XRPODE1141-34-90 15:05:53* Test Item Value Reference Range Interpretation Comme nts HIV Semi-quantitative (test code = 97721-5) 0.11 Negative TIERRA (test code = TIERRA) Non-reactive for HIV-1 antigen and HIV-1/HIV-2 antibodies. ?No laboratory evidence of HIV infection. ?Repeat in 2-4 weeks if acute HIV infection is suspected. [facility] HospitalHEPATITIS B SURFACE CPUTWSN2528-51-92 15:01:33 * Test Item Value Reference Range Interpretation Comme nts HBsAg Semi-Quantitative (fredy t code = 5195-3) 0.07 Negative [facility] HospitalGLYCOSYLATED HEMOGLOBIN (A1C)2023-08-21 14:26:03* Test Item Value Reference Range Interpretation Comme nts HGB A1C (test code = 4548-4) 5.2 % 4.0-5.7 TIERRA (test code = TIERRA) Reference RangesNormal: <5.7%Prediabetes: 5.7 - 6.4%Diabetes: > 6.5% Lab Interpretation (test code = 38935-5) Normal [facility] HospitalType and Screen - ONCE Qukfzht3278-41-24 13:34:00* Test Item Value Reference Range Interpretation Comme nts ABO & RH (test code = 20) O POSITIVE IAT (test code = 1185) Negative [facility] HospitalProthrombin Time / LEE8189-00-42 02:05:48* Test Item Value Reference Range Interpretation Comme [facility] PROTIME PATIENT (test code = 5964-2) [...] the indications. Lab Interpretation (test code = 57364-2) Normal [facility] HospitalaPTT2023-11-30 02:05:48* Test Item Value Reference Range Interpretation Comme [facility] APTT Patient (test code = 3173-2) 27 See_Comment [Automated message] The system which generated this result transmitted reference range: 23 - 38 Seconds. The reference range was not used to interpret this result as normal/abnormal. TIERRA (test code = TIERRA) The [facility] patient population mean normal value for aPTT is 30 seconds. Lab Interpretation (test code = 20907-3) Normal [facility] HospitalCBC WITH XVYK0000-87-85 01:28:43* Test Item Value Reference Range Interpretation [...] g/dL 31.6-35.1 L RDW-SD (test code = 89112-5) 45.6 fL 39.0-49.9 RDW-CV (test code = 788-0) 17.0 % 12.0-15.5 H PLT (test code = 777-3) 228 See_Comment [Automated messa ge] The system which generated this result transmitted reference range: 166 - 358 10*3/?L. The reference range was not used to interpret this result as normal/abnormal. MPV (test code = 29324-4) 10.4 fL 9.5-12.9 NRBC/100 WBC (test code = 1593459844) 0.2 See_Comment [Automated [place] ssage] The system which generated this result transmitted reference range: 0.0 - 10.0 /100 WBCs. The reference range was not used to interpret this result as normal/abnormal. NRBC x10^3 (test code = 5202617570) 0.02 See_Comment [Automated messa ge] The system which generated this result transmitted reference range: 10*3/?L. The reference range was not used to interpret this result as normal/abnormal. GRAN MAT (NEUT) % (test code = 770-8) 75.4 % IMM GRAN % (test code = 7893592613) 0.90 % LYMPH % (test code = 736-9) 17.6 % MONO % (test code = 5905-5) 4.9 % EOS % (test code = 713-8) 0.9 % BASO % (test code = 706-2) 0.3 % GRAN MAT x10^3(ANC) (test code = 1012015379) 6.84 10*3/uL 1.88-7.09 IMM GRAN x10^3 (test code = 7162653896) 0.08 10*3/uL 0.00-0.06 H LYMPH x10^3 (test code = 731-0) 1.60 10*3/uL 1.32-3.29 MONO x10^3 (test code = 742-7) 0.44 10*3/uL 0.33-0.92 EOS x10^3 (test code = 711-2) 0.08 10*3/uL 0.03-0.39 BASO x10^3 (test code = 704-7) 0.03 10*3/uL 0.01-0.07 Lab Interpretation (test code = 87067-3) Abnormal [facility] HospitalType and Screen - ONCE Voffpyu6896-57-00 01:24:00* Test Item Value Reference Range Interpretation Comme nts ABO & RH (test code = 20) O Positive IAT (test code = 1185) Negative [facility] HospitalPOCT URINALYSIS W/O SPECIFIC PKZGHYT3794-45-11 16:23:00* Test Item Value Reference Range Interpretation [...] = 3257) n/a Negative - Negati ve [facility] URINALYSIS W SPECIFIC FLSTGZE0113-25-87 13:44:00* Test Item Value Reference Range Interpretation [...] POCT U APPEAR (test code = 3267) [facility] URINALYSIS W SPECIFIC WRJAMAL7460-50-17 18:00:00* Test Item Value Reference Range Interpretation [...] POCT U APPEAR (test code = 3267) [facility] URINALYSIS W/O SPECIFIC SJLBBZC8371-17-46 18:03:00* Test Item Value Reference Range Interpretation [...] = 3257) Trace Negative - Negati ve [facility] HospitalPOCT XFDD7835-97-83 18:02:00* Test Item Value Reference Range Interpretation Comme nts POCT PREG (test code = 1605) Positive On board controls acceptable with C Line (test code = 3574) Yes POCT PREG LOT # (test code = 3575) POCT PREG TEST DATE ( test code = 3576) [facility] HospitalCOMP. METABOLIC PANEL (71275)2022-01-17 03:31:19* Test Item Value Reference Range Interpretation Comme nts NA (test code = 4510987359) 139 mmol/L 135-145 K (test code = 4637746366) 4.2 mmol/L 3.5-5.0 CL (test code = 4587364155) 105 mmol/L 98-108 CO2 TOTAL (test code = 2348851955) 23 mmol/L 23-31 AGAP (test code = 9965756586) 2-16 BUN (test code = 6064632455) 9 mg/dL 7-23 GLUCOSE (test code = 1109426976) 94 mg/dL 70-110 CREATININE (test code = 0396343682) 0.61 mg/dL 0.50-1.04 TOTAL BILI (test code = 3091002194) 0.9 mg/dL 0.1-1.1 CALCIUM (test code = 5234251048) 9.4 mg/dL 8.6-10.6 T PROTEIN (test code = 5825437219) 8.3 g/dL 6.3-8.2 H ALBUMIN (test code = 9831517670) 4.7 g/dL 3.5-5.0 ALK PHOS (test code = 4146397061) 87 U/L 34-122 ALTv (test code = 1742-6) 11 U/L 5-35 AST(SGOT) (test code = 8652883682) 19 U/L 13-40 eGFR (test code = 3142860449) mL/min/1.73m2 TIERRA (test code = TIERRA) Association [...] imaging tests). Lab Interpretation (test code = 03732-3) Abnormal [facility] HospitalLIPASE2022-04-28 03:31:19* Test Item Value Reference Range Interpretation Comme nts LIPASE (test code = 7638471318) 68 U/L 0-220 Lab Interpretation (test cod e = 34070-4) Normal [facility] HospitalCB WITH TPWU4683-90-30 03:28:58* Test Item Value Reference Range Interpretation Comme nts WBC (test code = 6690-2) See_Comment [Automated messa ge] The system which generated this result transmitted reference range: 4.30 - 11.10 10*3/?L. The reference range was not used to interpret this result as normal/abnormal. RBC (test code = 789-8) See_Comment [Automated [employer] ge] The system which generated this result [...] 31.9 g/dL 31.6-35.1 RDW-SD (test code = 41631-6) 43.8 fL 39.0-49.9 RDW-CV (test code = 788-0) 15.2 % 12.0-15.5 PLT (test code = 777-3) See_Comment [Automated [employer] ge] The system which generated this result transmitted reference range: 166 - 358 10*3/?L. The reference range was not used to interpret this result as normal/abnormal. MPV (test code = 40320-0) 11.3 fL 9.5-12.9 NRBC/100 WBC (test code = 9279496386) See_Comment [Automated [place] ssage] The system which generated this result transmitted reference range: 0.0 - 10.0 /100 WBCs. The reference range was not used to interpret this result as normal/abnormal. NRBC x10^3 (test code = 9525292568) <0.01 See_Comment [Automated [employer] ge] The system which generated this result transmitted reference range: 10*3/?L. The reference range was not used to interpret this result as normal/abnormal. GRAN MAT (NEUT) % (test code = 770-8) 71.7 % IMM GRAN % (test code = 9630991072) 0.20 % LYMPH % (test code = 736-9) 22.5 % MONO % (test code = 5905-5) 4.2 % EOS % (test code = 713-8) 0.8 % BASO % (test code = 706-2) 0.6 % GRAN MAT x10^3(ANC) (test code = 9958795160) 6.26 10*3/uL 1.88-7.09 IMM GRAN x10^3 (test code = 8704130343) <0.03 0.00-0.06 LYMPH x10^3 (test code = 731-0) 1.96 10*3/uL 1.32-3.29 MONO x10^3 (test code = 742-7) 0.37 10*3/uL 0.33-0.92 EOS x10^3 (test code = 711-2) 0.07 10*3/uL 0.03-0.39 BASO x10^3 (test code = 704-7) 0.05 10*3/uL 0.01-0.07 Lab Interpretation (test code = 31811-4) Abnormal [facility] HospitalPOCT WWYY1367-57-02 02:14:00* Test Item Value Reference Range Interpretation Comme nts POCT PREG (test code = 1605) negative On board controls acceptable with C Line (test code = 3574) present POCT PREG LOT # (test code = 3575) [id number] POCT PREG TEST DATE ( test code = 3576) 06/21/2023 Lab Interpretation (test cod e = 36014-7) Normal [facility] HospitalUS ABDOMEN QGJGCVR3038-10-06 23:14:22 Cholelithiasis with no evidence of acute [...] reviewed this study and agree with theabove report.[facility] HospitalURINALYSIS2019-08-13 19:31:00* Test Item Value Reference Range Interpretation Comme nts APPEARANCE (test code = 3887062683) Slightly Cloudy Clear A COLOR (test code = 3229800856) Yellow Yellow PH (test code = 2338984808) 4.8-8.0 SP GRAVITY (test code = 8463658843) <=1.005 1.003-1.030 GLU U QUAL (test code = 2138892264) Negative Negative BLOOD (test code = 3120980000) Negative Negative KETONES (test code = 9503026207) Negative Negative PROTEIN (test code = 2887-8) Negative Negative UROBILIN (test code = 3309094200) 0.2 mg/dL See_Comment [Automated message] The system which generated this result transmitted reference range: 0-1.0 mg/dL. The reference range was not used to interpret this result as normal/abnormal. BILIRUBIN (test code = 3826819254) Negative Negative NITRITE (test code = 1195985807) Negative Negative [place] (test code = 9986849403) Large Negative A RBC/HPF (test code = 5433883047) See_Comment [Automated message] The system which generated this result transmitted reference range: 0 - 3 HPF. The reference range was not used to interpret this result as normal/abnormal. WBC/HPF (test code = 2044381394) See_Comment H [Automated message] The system which generated this result transmitted reference range: 0 - 5 HPF. The reference range was not used to interpret this result as normal/abnormal. BACTERIA (test code = 7379321492) Moderate Negative A SQ EPITH (test code = 2996930008) HPF Lab Interpretation (test code = 31907-3) Abnormal [facility] CLC OR L[facility] ONLY - WET YZSU5013-65-02 19:28:00* Test Item Value Reference Range Interpretation Comme nts Wet Prep (test code = 8600599849) No Trichomonas vaginalis present [facility] ONLY - FERN PMKW4954-86-39 19:24:00* Test Item Value Reference Range Interpretation Comme nts Fern Test (test code = 4803460560) Negative [facility] History and Physical Notes Date/Time Note Provider Source 2023-09-25 01:42:50 cJjrlSTgDVrlL3Sm7/J2 7yQkAP3AXTSpnfF7k7Z12Z lNWLM+qEKM+ll+NMmyPmQm6784-59-50Z97:42:50F ormatting of this note is different from the original.TRIAGE HISTORY & PHYSICALIDENTIFYING DATASireniti Ron Valdes is 22 year old, /White, 38w6d, female with STEVE 10/03/2023, by Last Menstrual Period.: 1998MRN: [id number] Care Physician: Kory Gonzales COMPLAINTcontractionsHISTORY OF PRESENT [...] 05/27/18 9w2d2 SAB 01/10/18 7w4d1 SAB 04/24/17 5k8pBSKW MEDICAL HISTORYProblem list:Patient Active Problem ListDiagnosis Date [...] (HEMABATE) injection 250 mcg 250 mcg Intramuscular M6DRQFO2R-QM IV infusion 1,000 mL 1,000 mL IV Infusion TITRATEFENTanyl PF (SUBLIMAZE (PF)) injection 100 mcg 100 mcg Slow IV Push E3JEUZpwxfbgiu ringers IV infusion 500 mL 500 mL IV Infusion ONCElactated ringers IV infusion 500 mL 500 mL IV Infusion PRN - SEE INSTRUCTIONSlactated ringers IV infusion 500 mL 500 mL IV Infusion PRN - SEE INSTRUCTIONSlidocaine 1% (PF) (XYLOCAINE) injection 0.3 mL 0.3 mL Infiltration PRN - SEE INSTRUCTIONSmethylergonovine (METHERGINE) injection 0.2 mg 0.2 mg Intramuscular Y4PICKxhWUTKABpvY (CYTOTEC) tablet 200 mcg 200 mcg Rectal PRNondansetron (ZOFRAN (PF)) injection 4 mg 4 mg Slow IV Push J2ZPZSuaunlztr (PITOCIN) 30 units in NS 500 mL [...] Vomiting (N/V). 30 tablet 0 Takingprenatal vit 04-xtzr-silhe-dha (SELECT-OB + DHA) 29 mg iron-1 mg [...] Syphilis ChlamydiaABO & RHDate Value Ref Range Ziacmx5009/11/2023 O Positive FinalNo results found for: "HIVMULTIPLEX" No components found for: "HBSHBSAG" Syphilis IgG/IgMDate Value Ref Range Ncimmv0708/21/2023 Non-reactive Non-reactive FinalC. trachomatis Nucleic AcidDate Value Ref Range Bxukpm1209/11/2023 Negative Negative FinalIATDate Value Ref Range Fhydzn0309/11/2023 Negative FinalVaricella Rubella Glucose Group B Strep CBCVZV IgG antibodyDate Value Ref Range Bnwwds3008/21/2023 Negative Negative FinalRubella screen IgGDate Value Ref Range Wqctki4508/21/2023 Positive Negative FinalGLUC 1 HRDate Value Ref Range Kfxgua9109/11/2023 95 (L) 120 - 170 mg/dL FinalNo results found for: "CGBS" HGBDate Value Ref Range Qlmxye0109/16/2023 8.0 (L) 11.6 - 15.0 g/dL FinalHCTDate Value Ref Range Lmqsax4909/16/2023 27.4 (L) 35.7 - 45.2 % FinalPLTDate Value Ref Range Porysn5909/16/2023 184 166 - 358 10*3/?L FinalActive Hospital [...] or others- Feels safe- Seen by social media campaign manager on 08/22/2023rug use- UDS positive for alprazolam on multiple UDS this , last one on 09/18/23- Seen by social media campaign manager on 08/22/2023-UDS sent todayHx of childhood heart [...] detailsVien Pedro Cruz MD 09/25/2023 1:46 AM 61348-0Eqagjnv and physical lpdlLR3914-27-40R81:54:15History and physical noteTXT1.2.840.736756.1.13.104.2.7.2.76575 9|[id number] for patient bivd11735-6Jcinmlg and physical noteLNNARRATIVEFormatted C-CDA narrative text[address] Wzlg[id number] BCZLKSIFIMYPZAVP5503-90-17W76:54:151.2.840 .908316.1.72.3.15|1.2.840.872488.1.13.104. 2.7.2.727879_[id number] [facility] 2023-09-16 03:28:41 PFRK5yUnce/XDf5HOwvj 92SSbHF1aRhgmihyR6dbux jge+HZ9NAZjZfKg8xPCtI/8118-76-84X60:28:41F ormatting of this note is different from the original.ANTEPARTUM HISTORY & PHYSICALIDENTIFYING DATASireniti Ron Valdes is 22 year old, /White, 37w4d, female with STEVE 10/03/2023, by Last Menstrual Period.: 2000MRN: [id number] Care Physician: Krystal Cruzospital Day: 1CHIEF COMPLAINTcontractionsHISTORY OF PRESENT WTKLBEB4 year old @37w4d presents via EMS for [...] 05/27/18 9w2d2 SAB 01/10/18 7w4d1 SAB 04/24/17 6l3wFSAK MEDICAL HISTORYProblem list:Patient Active Problem ListDiagnosis Date [...] (TYLENOL) tablet 650 mg 650 mg Oral Q7VFKZocbpnxmz ringers IV infusion 1,000 mL 1,000 mL [...] Vomiting (N/V). 30 tablet 0 Takingprenatal vit 03-nsmj-czgxs-dha (SELECT-OB + DHA) 29 mg iron-1 mg [...] in the current .Negative screening.DELIVERY PLANvaginalFETAL HEART DFMM335 at first moderate variability now with minimal variabilityToco: 2-3/10 minASSESSMENT AND PLAN22 year old @10d3tIkpb acute drup use and now non reactive NST--labs + IVF ordered--Internal medicine consultMarisol MD Jaja 92496-9Hcchryj and physical lhybMH9120-50-66J38:36:45History and physical noteTXT1.2.840.056616.1.13.104.2.7.2.89818 9|[id number] for patient xile83234-0Chrkheq and physical noteLNNARRATIVEFormatted C-CDA narrative text[address] Yacm[id number] FRLKDEJHSYEDZZFJ1373-79-45T93:36:451.2.840 .712012.1.72.3.15|1.2.840.185263.1.13.104. 2.7.2.727879_[id number] [facility] Procedure Notes Date/Time Note Provider Source 2023-09-25 03:40:49 7tEVCLk62blPEjew6unlzLciiAYmF71QpNM qZPzUYkGT9CCxZ3dgs+O2ditgsSrQ5048-8 09-25T03:40:49Associated Order(s): Central Neuraxial Block Central Neuraxial [...] rate / toco and NIBPLocation: lumbar (1-5)Lumbar: L2-P0Cyjamskw: midlineTechnique: SUJEY air and catheterGuidance with: landmark technique}Epidural/Spinal [place] and/or Catheter:Epidural/Spinal Kit: BBraunNeedle Type: TuohyNeedle Gauge: 17 GNeedle Length: 3.5 in (8.89 cm)Needle Insertion Depth: 7Catheter Type: multiportCatheter Size: 19 GCatheter at Skin Depth: 12Number of Attempts: 2Test Dose: lidocaine 1.5% with epinephrine 1-to-200,000 and negativeDose: 3 ccCatheter Securement Method: Tegaderm, surgical tape and clear occlusive dressingAssessment:Sensory Level: above S52Mxfwr Outcome: successful block, no apparent complications, pain [...] then tegaderm and tape. No apparent complications. 65761-7Axufusbkfjvmwm procedure biaxPM8624-27-94A09:43:36Anesthesio logy procedure noteTXT1.2.840.142025.1.13.104.2.7. 2.330723|[id number] for patient lbqa69989-9Onpdlpow operation noteLNNARRATIVEFormatted C-CDA narrative textAN-ANESTHESIOLOGY ANESTHESIOLOGISTAN-ANESTHESIOLOGY ANESTHESIOLOGIST[address] Svm[id number] 7XMMYFNZTQRLJTCJYTAZJVV4227-78-17U6 3:43:361.2.840.840342.1.72.3.15|1.2 .840.238907.1.13.104.2.7.2.727879_1 [id number] AN-ANESTHESIOLOGY ANESTHESIOLOGIST [facility] Notes Date/Time Note Provider Source 2023-12-18 13:26:12 Vm6clQIHWG6GTXnn9pt59PP19SLI2QKzzKZ1 qR+WfTi5YqIVhIwP5+6BPOXbrtNo0796-69- 28T13:26:12 Name and verified. Pt stated that she was not able to go see psych as she resendiz snot have insurance. Wanted to see if he still has medicaid- sent her to [facility].COLETTE ABBOTT RN 12/18/2023 1:26 PM 34946-9Pzgelcclq encounter EczpEP8254-22-28U59:26:53Telephone encounter NoteTXT1.2.840.176255.1.13.104.2.7.2 .353886|[id number] for patient lbhw77315-5TdisZWCHWALOZRLKmhmlyfar C-CDA narrative [id number] Kelsey Scar [address] [id number] ZTEVEHIWBTSLFJOSFFAZMU6169-07-64W24: 26:531.2.840.493279.1.72.3.15|1.2.84 0.074204.1.13.104.2.7.2.727879_20603 38774 Colette Abbott [facility] 2023-11-28 08:59:02 68HdAsT6CN/I8i1lnXA9snjjW7ZVAmmRfvYt IZZcdvJneRgQXIRQ3hE6nSNBW2Ly3910-01- 08T08:59:02 ATC pt. Straight to . LM on for pt to return call. [employer] Systemshart message sent.COLETTE ABBOTT RN 11/28/2023 8:59 AM 23092-2Vsczyljpa encounter IqtxWO7771-16-40T57:59:45Telephone encounter NoteTXT1.2.840.306950.1.13.104.2.7.2 .676507|[id number] for patient fzjy51188-8NwliWOKYTVWZHXGPpsbtzjkj C-CDA narrative [id number] G Cervantes [id number] CDSORKGWACQZCJDIUCQPVN5458-97-40P30: 59:451.2.840.991049.1.72.3.15|1.2.84 0.350153.1.13.104.2.7.2.727879_20443 [id number] Colette Abbott [facility] 2023-11-21 14:27:31 uCycJld4jcjmbySoASRu7s2OTdal3LAxmTKW qBgzxQ5eaAmr47mLcgDeYJtIWch14829-24- 01T14:27:31 Name and verified. Had to reschedule it for Friday. Woke up sick. Picked up medication from pharmacy and started taking both The Zoloft and Buspirone. She has not felt a change at this time. Advised pt that I will call her on Friday. Verbalized understanding.COLETTE ABBOTT RN 11/21/2023 2:30 PM 35204-5Gkborxluv encounter MlafRI1791-37-87V92:30:20Telephone encounter NoteTXT1.2.840.126601.1.13.104.2.7.2 .239628|[id number] for patient ghkx07716-7SrvdMWVTAQYENPICmuarbjhf C-CDA narrative [id number] G Cervantes [id number] OQFNGKDWITWDONKFSANRYE2036-79-79A78: 30:201.2.840.908299.1.72.3.15|1.2.84 0.399090.1.13.104.2.7.2.727879_20387 41877 Colette Abbott [facility] 2023-11-18 09:35:26 joPIuR5gLRpegac0rxBi8gPy+XKi7fGumajh Chayo+keqh0lBnjhV2YdkFkITu7rSw0876-69- 27T09:35:26 Name and verified. Pt stated that she was incarcerated and was released on 10/30 and had 24 pills left which lasted her 12 days. I advised her that I will call pharmacy and will call her back. Verbalized understanding.Spoke to [facility]- the last fill of [...] take afterwards. Pt stated that she will scrap picker both medications as pharmacy.Pt stated that her psychiatry appt is this . I advised her that I will call her on Friday to see how appt went and to see if the provider changed anything. Verbalized understanding.COLETTE ABBOTT RN 11/18/2023 9:39 AM 54828-6Xcpazmqox encounter MmecIR4340-49-62I08:41:08Telephone encounter NoteTXT1.2.840.885408.1.13.104.2.7.2 .212428|[id number] for patient grgd64883-6NufmTSKMIZLUJSMAnpgxfdsu C-CDA narrative [id number] Abbott RN[address] StreetBq[id number] UKQLSRSZEJJCPNJTAPJKYF3549-00-71K66: 41:081.2.840.341063.1.72.3.15|1.2.84 0.230764.1.13.104.2.7.2.727879_20349 94518 Colette Abbott RN [facility] 2023-11-17 14:36:08 xQCCEKhu/YC4n2H+qoo8GRA55FGPfG0cp6J6 /mWvLBhQD7qGqapo+1k5JR1z8mBa0811-69- 26T14:36:08 ATC pt. LM on for pt to return call.Mychart message sent.COLETTE ABBOTT RN 11/17/2023 2:37 PM 95238-6Fblszrvek encounter QwpgPO1285-28-58G19:44:28Telephone encounter NoteTXT1.2.840.719617.1.13.104.2.7.2 .158249|[id number] for patient czzb94851-3PgkyMBQZFFZGHHDXkzdunnca C-CDA narrative textUT[address] UmcsM[id number] SJNVIUPDZQJDPEXTVHLNMC5938-40-99K44: 44:281.2.840.445232.1.72.3.15|1.2.84 0.593885.1.13.104.2.7.2.727879_20342 41695 [facility] 2023-11-17 10:27:16 PVye6U+m43lFhkpui/LmSqZvTMduHsN95t78 JJo5Iaee3GlO189vKQTzoOtc6q358758-40- 26T10:27:16 Name and verified. Pt stated now [...] return call.COLETTE ABBOTT RN 11/17/2023 10:39 AM 00386-3Vbzddxrth encounter WgzwRY5192-95-43G65:40:08Telephone encounter NoteTXT1.2.840.721131.1.13.104.2.7.2 .411598|[id number] for patient qsnl77345-6AwhdUFBBMDFFHLLYoranmynw C-CDA narrative [id number] ADQTXSYYOBJFCLFVNQFIGZ1355-94-73W07: 40:081.2.840.304884.1.72.3.15|1.2.84 0.495826.1.13.104.2.7.2.727879_20339 30955 [facility] 2023-11-17 08:59:21 jOXtGRQmhYtiGrBoV6vsCWbWEHry5QazJ/sL g+coQ8/Meu50vWiwbZe8SpeGwYe29533-07- 26T08:59:21 MARYAM. Danny on for pt to return call.COLETTE ABBOTT RN 11/17/2023 8:59 AM 20550-6Xupqqxwov encounter NjrhVA5969-68-35N51:59:43Telephone encounter NoteTXT1.2.840.861889.1.13.104.2.7.2 .936839|[id number] for patient ycgj12357-3MjtcHWIZTGKNVWUDbjqcdmxb C-CDA narrative text[address] [id number] XKZEKWLELZXMECEDVGBFWX1369-66-15M83: 59:431.2.840.531495.1.72.3.15|1.2.84 0.135203.1.13.104.2.7.2.727879_20337 16923 [facility] 2023-11-15 12:16:29 q0iTlO8T433nnxQoJzp/JI0lf8tjsSBpZq5B 55xI468PKxg9B7X1oZ+CBXVsZN2M5195-74- 24T12:16:29 Arina Valdes is a 23 year old femalePt is requesting refill for Buspirone but would like to discuss a higher dosage. Pt asking if appt is needed can it be telehealth because she can not get transportation to [place] at this time.Please call pt back at [phone]. 72937-9Giaulqdzz encounter ShtzNH3977-94-88P95:21:25Telephone encounter NoteTXT1.2.840.917835.1.13.104.2.7.2 .328765|[id number] for patient uxcg65486-4DbgjFRURCWFJCVIHertehrfg C-CDA narrative qzop570851816Kipkdei M Brown[address] StreetXkoeCtxscmusiEmnndlzfyGPWJ4203013869 BUNISSVQIESTRSFVFBMPKT8478-81-86E28: 21:251.2.840.818191.1.72.3.15|1.2.84 0.082796.1.13.104.2.7.2.727879_20333 79578 Lori George [facility] 2023-10-09 15:59:41 0QJ6X9ZCYl2waT0qN0ZhGmYC9v6tp0TnH6v7 0r2FIZrRxC/Y+zKDoFEwrm4itwyY3237-79- 18T15:59:41 Name and verified. Pt stated that [...] Verbalized understanding.COLETTE ABBOTT RN 10/09/2023 4:01 PM 13020-7Hcicaghoi encounter DgccRH2867-80-20F45:02:01Telephone encounter NoteTXT1.2.840.598471.1.13.104.2.7.2 .197139|5714981376PRChizqwaqj for patient ladw83548-9ScsmXNUVOVOQYEZXzszjwsdp C-CDA narrative qcjv065153664McnaozdydColette Abbott RN[address] FigiWxyvzlldqUsdyxuumgXTNQ2701739995 MYPSVJLTDECFVQPZEGVIXW8450-67-44W40: 02:011.2.840.640035.1.72.3.15|1.2.84 0.268259.1.13.104.2.7.2.727879_20014 39255 Colette Abbott [facility] 2023-10-09 14:49:39 xTqzL+lmG2rr+ZYhZajR113GMo6WXzoCs9dX 2t8fqvDdtv00y7bJ7WyflMbLNbp98608-81- 18T14:49:39 Per Pt- hx of anxiety and [...] try again.COLETTE ABBOTT RN 10/09/2023 2:53 PM 55765-0Watymorhm encounter EgnmAK7021-79-79V00:54:19Telephone encounter NoteTXT1.2.840.058470.1.13.104.2.7.2 .908628|0419681153TQAgrkyitue for patient eoqw94604-8WdasGKYLOWLWAPYKuwmbbtys C-CDA narrative text[address] StreetXchxDxytkwijmSbmwfqzgnJWSH7624203602 YURYAOFAJSMCKEEAUBNFFU7413-66-05H64: 54:191.2.840.933780.1.72.3.15|1.2.84 0.498732.1.13.104.2.7.2.727879_20023 07215 [facility] 2023-10-09 14:31:55 feIZ94aAbhdLx6xvEPMUHAJBUKOP3kvlKPqJ 3Y9ZEq+dlehX1Merdclvx7zIsaul1388-26- 18T14:31:55 Patient states she is having signs of pp depression. She states Dr. Cruz told her to call and she would send in a prescription for her. She is not having a good day today, no thoughts of hurting herself or the baby but feels like nothing is going right today.[id number] - [place] [address] [facility] ZenSuite DRIVEPhone: Bfrslgcsubjbsp signed by Reyna Avalos at 10/09/2023 2:34 PM WHF97677-7Knpwikzpi encounter XeaiYC7129-72-30R41:34:17Telephone encounter NoteTXT1.2.840.303444.1.13.104.2.7.2 .869208|[id number] for patient oocq46624-6AwmpTXZNHVLZJDECwshrfjbb C-CDA narrative umuc08947372Mkpsd S Hernandez[address] [id number] DQJQYKDPMUKNUBQDAKDAAZ7952-72-39I60: 34:171.2.840.453756.1.72.3.15|1.2.84 0.404200.1.13.104.2.7.2.727879_20023 01315 Reyna Avalos [facility] 2023-09-26 23:31:11 3kpG/Slp8ItnX17EOQZxqnP21zMnjvWHakQE OfWvuif5f2uurJHj+126LUFLHAyr6213-70- 05T23:31:11 Problem: PainGoal: Control of pain at or below patient's documented comfort goalOutcome: Progressing as expectedGoal: Reduction in pain sensationOutcome: Progressing as expectedProblem: Bleeding, Risk ofGoal: Absence of impaired coagulation signs and symptomsOutcome: Progressing as expectedGoal: Absence of active bleedingOutcome: Progressing as expectedProblem: Discharge Planning - PostpartumGoal: Adequate for dischargeOutcome: Progressing as expectedGoal: Mood stableOutcome: Progressing as expected 32055-5Kvzs of care ktqxST1119-53-73J79:31:16Plan of care noteTXT1.2.840.860985.1.13.104.2.7.2 .494203|1019758802UXOoqsxlwcv for patient ccyn69099-9WwfyVRMZZMEJHLRDzromkcmy C-CDA narrative biau811730386Hdwmhzko Vela [id number] HQBXJZLKIPQMHUWSDQBWZC9745-80-17I12: 31:161.2.840.147307.1.72.3.15|1.2.84 0.133992.1.13.104.2.7.2.727879_ 93995 Flaquita Branch RN [facility] 2023-09-26 08:06:29 aFj/BLs6dIJqDSNTf46lIdvf7uH1EU+0JIZS r+Bn5KvidRvpmyX30USlZ69GqYbZ4580-01- 05T08:06:29 Problem: PainGoal: Control of pain at or below patient's documented comfort goalOutcome: Progressing as expectedGoal: Reduction in pain sensationOutcome: Progressing as expectedProblem: Bleeding, Risk ofGoal: Absence of impaired coagulation signs and symptomsOutcome: Progressing as expectedGoal: Absence of active bleedingOutcome: Progressing as expectedProblem: Discharge Planning - PostpartumGoal: Adequate for dischargeOutcome: Progressing as expectedGoal: Mood stableOutcome: Progressing as expected 01611-4Lmsw of care resuLV5835-49-19D76:06:48Plan of care noteTXT1.2.840.527635.1.13.104.2.7.2 .457979|4691186821OYOneikdsse for patient jdkw21831-6UztyXCMZJRYCWOFYbwjwbsis C-CDA narrative [id number] E Duarte RN[address] StreetUfhnAeqhweiihWvnymillyIVRT8456204595 BWSVAFNWPPGRLAMWSCOLFW5870-77-13U35: 06:481.2.840.193386.1.72.3.15|1.2.84 0.239392.1.13.104.2.7.2.727879_19914 36823 Nesha Matta RN [facility] 2023-09-25 19:06:08 rIkJxJylOpEes60NaJxbQa25e53s8dAZKwwR 7hNViXxfIrPrJSDtM0ZvZ94ehDtH4516-03- 04T19:06:08 Problem: PainGoal: Control of pain at or below patient's documented comfort goalOutcome: Progressing as expectedGoal: Reduction in pain sensationOutcome: Progressing as expectedProblem: Bleeding, Risk ofGoal: Absence of impaired coagulation signs and symptomsOutcome: Progressing as expectedGoal: Absence of active bleedingOutcome: Progressing as expectedProblem: Discharge Planning - PostpartumGoal: Adequate for dischargeOutcome: Progressing as expectedGoal: Mood stableOutcome: Progressing as expected 61198-0Jgwe of care nyhxEN9867-25-20P59:06:14Plan of care noteTXT1.2.840.117359.1.13.104.2.7.2 .163909|4171795176IYCerqgdabe for patient sest83060-8NpxhGVKXBCBKLCJLzkarhbwd C-CDA narrative pnmb028490027Kfhhkkzx M Martinez RN[address]XbfuMhxfekklnAfblppllcLMXK7937044824 ZMNKDDWQJGYYEUPLAKCXMB3977-70-32W32: 06:141.2.840.345925.1.72.3.15|1.2.84 0.042399.1.13.104.2.7.2.727879_19921 38563 Heidi Plata RN [facility] 2023-09-25 08:54:21 yAoPm6j9kYTIBzJPtR/uRHkIFjBEfxGhXelB PvzXBrBy9kfZfd3N5aMDeM/3gOVM1201-78- 04T08:54:21 Patient: Arina Velasquez RamosProcedure SummaryDate: 09/25/23 Room / Location:Anesthesia Start: 0300 Anesthesia Stop: 851Procedure: CENTRAL NEURAXIAL BLOCK Diagnosis:Scheduled Providers: Responsible Provider: Stanley, Xenia Altinger, MDAnesthesia Type: Not recorded ASA Status: 2Anesthesia Type: No value filed.Last sevxhpRBApxwOvfjsEvxeTjJ6Kejdh were no known notable events for this [...] No apparent complicationsEaston Piedra MD 09/25/2023 08:54 88588-9Yhnzdkcdpffayd Postoperative evaluation and management paorEH9867-24-55P02:54:34Anesthesiol ogy Postoperative evaluation and management noteTXT1.2.840.808131.1.13.104.2.7.2 .962292|8148516982JLHelafypqp for patient vhlb68663-2Wphwmecz operation noteLNNARRATIVEFormatted C-CDA narrative textAN-ANESTHESIOLOGY ANESTHESIOLOGISTAN-ANESTHESIOLOGY ANESTHESIOLOGIST[address] ZvkwLfzdontwpVkgkprtfcLPVZ7504264192 EOLMNXRYWQEOYKUGWGJTVV5819-93-97A22: 54:341.2.840.464610.1.72.3.15|1.2.84 0.919704.1.13.104.2.7.2.727879_19905 96251 AN-ANESTHESIOLOGY ANESTHESIOLOGIST [facility] 2023-09-25 06:42:27 B2Kikij9laun/37CXJRWMCyFTQ8QjR7Lu2rx t1RYlq/h4r4V1r8dajxetOtTStcS4756-84- 04T06:42:27 Problem: PainGoal: Control of pain at or below patient's documented comfort goalOutcome: Progressing as expectedGoal: Reduction in pain sensationOutcome: Progressing as expectedProblem: Bleeding, Risk ofGoal: Absence of impaired coagulation signs and symptomsOutcome: Progressing as expectedGoal: Absence of active bleedingOutcome: Progressing as expected 33985-1Athq of care htkjZF6248-12-32J36:42:28Plan of care noteTXT1.2.840.998142.1.13.104.2.7.2 .046095|9005732506OWFshopxunj for patient utvg13875-9PjynJZOTYTGWGVGHatgvrsht C-CDA narrative bdvw993750769RurwjquNikki Velazquez RN[address] StreetZackTpynawlgaMrooctgtpRKLW5406375350 HMQSSTSZRJXOXOOATJUTGS4108-75-87L06: 42:281.2.840.798281.1.72.3.15|1.2.84 0.802698.1.13.104.2.7.2.727879_19913 58486 Nikki Velazquez RN [facility] 2023-09-25 06:41:38 vk1p40goqUbuiDzNnwsG/favw5bH23TeXpUc PfA3PMPT1NguulYr16Wnvhge4e6Z1640-35- 04T06:41:38 Problem: PainGoal: Control of pain at [...] by Nikki Velazquez RNOutcome: Progressing as expected 19789-7Bsrb of care ahncKL2170-37-68O48:41:44Plan of care noteTXT1.2.840.246624.1.13.104.2.7.2 .455829|6140853298YUOiuvikqzp for patient pmvk07467-7HthaGUSFXAXILCDYmrvjjkdr C-CDA narrative textUT54 [address] StreetFhsyPbleyifnvRaryainocJNDK2867247505 UIELPPPWSALTKVPGFEZQAW7212-74-55E80: 41:441.2.840.627652.1.72.3.15|1.2.84 0.895232.1.13.104.2.7.2.727879_19913 71037 [facility] 2023-09-25 06:08:58 OjpFsnyHVTz9sOU3T8aJJUPxu9W+qRquzrUZ sLXkeZY/D6EJlbslCorD+0nRy63I8327-19- 04T06:08:58 DELIVERY BY SPONTANEOUS VAGINAL DELIVERYDelivery Date: [...] cord was double clamped, cut and the was handed off the field to the [...] 9Eneidan Pedro Cruz MD 09/25/2023 6:10 AM 09346-1Wfxil and delivery summary yqviIO3322-77-88W90:29:51Labor and delivery summary noteTXT1.2.840.419077.1.13.104.2.7.2 .635628|3319338672NWPjewagebs for patient whdd57583-8LhwxAGIKNWIVJNEKttnhdona C-CDA narrative text[address] [id number] KYGKXJPHWVZHSFTJBUDEJJ7452-63-99T23: 29:511.2.840.909841.1.72.3.15|1.2.84 0.147103.1.13.104.2.7.2.727879_19913 19283 [facility] 2023-09-25 04:18:18 k4YdW+NUGP6Y2XVgUZw5fU3dTn/8gIlDQbNy vpEY2UWQ1qU0iYQNAn8bMTkvEFdp2913-73- 04T04:18:18 Problem: Intrapartum process (including labor pain)Goal: [...] Absence of active bleedingOutcome: Progressing as expected 65210-7Mkbx of care kzwqPY2019-26-89Q97:18:21Plan of care noteTXT1.2.840.289488.1.13.104.2.7.2 .085309|9157882208PECtfzfhswf for patient jnal90709-2DrcfOKUCZDNVOCXTmplhcqpw C-CDA narrative textUT[address] AbaeZzokvenufRnkiisfvbPWKL1572385779 LDEWCQBHLXLTHLOUASHACV7066-66-18A64: 18:211.2.840.395801.1.72.3.15|1.2.84 0.506529.1.13.104.2.7.2.727879_19913 61274 [facility] 2023-09-25 03:37:05 MPM6dt5uU2o8gY60rXWT4WwVbMCC36wq6hqQ wcjlggZ2FPi8PsmVRUJgXJfyidx82812-36- 04T03:37:05 Name/ MRN / Age / Gender:Arina Valdes, 500080P38 year old femaleBMI:Estimated body mass index is [...] not found *Procedure: CENTRAL NEURAXIAL BLOCKOR Location: [facility] OUT OF OR - OR LOCATIONAnesthesia Preop Eval (physical exam)Anesthesia Preop: Ophu-ra-DjhbGCWX Risk Factors: femaleAnesthesia HistoryAnesthesia History Negative(-) Hx [...] prior to surgery. Hold on DOS.Phentermine: Alert [facility] anesthesiologistSGLT2 Inhibitors: "gliflozins" to be held [...] LDRAdditional comments: Date Anesthesia Start: 09/25/2023Labor Room: 230[address] [place] [address] Ron Valdes is a 22 year old [...] and desires to proceed with the epidural. 34499-2Muwhozczgsnwet Preoperative evaluation and management uewnLP5924-55-11U74:38:52Anesthesiol ogy Preoperative evaluation and management noteTXT1.2.840.408214.1.13.104.2.7.2 .939607|9486099696TJCnxjcpvou for patient rgqx06429-6Zqdvaknv operation noteLNNARRATIVEFormatted C-CDA narrative textUT[address] RqibQhvvcmicwZnjlwfwvbVWPV9985872925 MCMJSQFLAJATLDRFXBBSJX7330-17-10X75: 38:521.2.840.061871.1.72.3.15|1.2.84 0.009761.1.13.104.2.7.2.727879_19911 42376 [facility] 2023-09-25 01:15:02 pAwfzFXGwbLJeiRj6PNFD6tClJV7egEiylxw nrgTNkMr8HF6zAm9uTeo7MzuqR1r6379-07- 04T01:15:02 Pt arriving with complaints of contractions. Pt is 39 weeks , . No rupture of membranes.Report to Radames Ojeda [place] [address]-7Rgmxjpgpz department NyetFN2464-12-86T81:15:16Emergency department NoteTXT1.2.840.649841.1.13.104.2.7.2 .377424|4349186514SWPxxoxtndy for patient egnu88039-1NcehDZWPERORBCKNizsgpetq C-CDA narrative gigq095459703Cgjzwu D Roman RNUT[address]TXTX[address]75[address] MRSVLSDSSGKNJBNTSGUCYA0941-27-72Y36: 15:161.2.840.803500.1.72.3.15|1.2.84 0.498304.1.13.104.2.7.2.727879_19911 93447 Windy Deleon RN [facility] 2023-09-24 07:51:06 RGW+AV/3fHgeJPXxxV4FyFmda6aV8MCHKf+R ly4VdXqw9uULHL4uy3B2+v9p3QxC7276-54- 03T07:51:06 Triage call transferred to ia. Patient identification verified by name and . [...] Cruz notified.Pedro Gomez RN 09/24/2023 7:57 AM 67641-7Egnhatgtn encounter MyukKM8586-66-53L99:57:46Telephone encounter NoteTXT1.2.840.518432.1.13.104.2.7.2 .849690|7445833985ILViwssppbi for patient tbpy72037-4PnrhOEOHEIQHOKCSlxouxusq C-CDA narrative npfg026951766Qtqaeha Collins RNUT[address] [id number] FLDILORWNDRTLVWZZNMVKL2578-92-45B45: 57:461.2.840.537955.1.72.3.15|1.2.84 0.181343.1.13.104.2.7.2.727879_ 25820 Pedro Gomez CARLOS [facility] 2023-09-24 07:43:24 XBX3I3x8GsJJP/5PdYI1syDIzVQlj7HWQ1dy GMSXEdgGlry/hjLc/igLYaYuvMDd0426-89- 03T07:43:24 Pt calling says she having contractions think she may be in labor they are 5 min apart, having some bloody discharge along with backache. Scheduled for delivery tomorrow has appt today in clinic. 93121-0Xughotrfo encounter OnvpDO5632-59-55V76:44:46Telephone encounter NoteTXT1.2.840.931790.1.13.104.2.7.2 .085097|4126382979SQCzzjemlat for patient uvvd14136-5IpsgQOZCADSRUQDUoknavbaq C-CDA narrative lilc269150409Nlvhc Jimbo[address] XzhsVctppnwpfVmnsmfhutJNCN0420474143 GBJOCIIALWIQXDYZPGEZVZ3243-38-85N42: 44:461.2.840.054401.1.72.3.15|1.2.84 0.959910.1.13.104.2.7.2.727879_19893 99655 Olamide Choi [facility] 2023-09-18 15:15:00 JcmWsKOrs6uKOWjmaizuiag2VVbdc9ogrGho OBqxnC+tuR9bF0SjwOnM6YBzHkVv0964-86- 28T15:15:00 Age: 22 year oldGA: 42p2hWcgmmnz asked if she can be induced now [...] moved out of the house-Seen by social media campaign manager on 08/22/2023rug use- UDS positive for alprazolam [...] cessation of marijuana use- Seen by social media campaign manager on 08/22/2023- UDS on 08/28/2023 presumptive positive [...] precautions givenFollow-up in 1 week for visit 99139-7Tdtnumjc rpkwSG9009-66-11R69:43:52Progress noteTXT1.2.840.743194.1.13.104.2.7.2 .254201|0652800781CBShhzuvjis for patient xjin21318-0SofpJQUJHIFQKUCNlhgcfgqh C-CDA narrative textUTMBUTMB - [address] OessNsfqjznrvMwwrafveoACLU7890895899 QGCHFZVYGGZEGPYFDTTAOT2575-14-31P35: 43:521.2.840.116522.1.72.3.15|1.2.84 0.801238.1.13.104.2.7.2.727879_19873 48701 [facility] 2023-09-16 01:27:39 qcAzBPbRiELFEmEwvB1/9t1uYVlD2/fzIpT6 K7V34F3knHIAnk5dVEoRQMnPfLsq7119-13- 26T01:27:39 PT to [facility] via [facility]. EMS report called to [facility] by Tina. 96689-8Wyeelhtqz department Triage dketUA9070-54-72K48:28:31[facility] Triage noteTXT1.2.840.663099.1.13.104.2.7.2 .244101|8248244494NSZwwkmpfkg for patient pjlx76081-8Kcuooahti department NoteLNNARRATIVEFormatted C-CDA narrative gnsj755914550Ymglxp R Shehadeh RNUT[address] [id number] MJPKSOKQISNOELWGPHXKOW4837-64-87A47: 28:311.2.840.311837.1.72.3.15|1.2.84 0.335598.1.13.104.2.7.2.727879_19843 08409 Tiffany Eden RN [facility] 2023-09-11 16:15:00 GPSSsyeoMpNPyHJjEySPmFHn12ltXMhqtpLB mRC8gUbvo5R2HNX8O5iOVXxPOr384377-09- 21T16:15:00 Age: 22 year oldGA: 99s7gUkmvohq reports doing well without concerns today. Patient [...] moved out of the house-Seen by social media campaign manager on 08/22/2023rug use- UDS positive for alprazolam on 07/29/23- UDS + for Benzo, cocaine, and THC on 08/20 at [facility]- pt reports she smokes marijuana for relief of n/v and vapes- denies past or current use of IV drugs.- States she "handled bags of cocaine and meth" and thinks that why she "had some in her urine.- Counseled on cessation-Seen by social media campaign manager on 08/22/2023-UDS on 08/28/2023 presumptive positive for [...] signed todayRTC in 1 [place] [address]-4Lypboxyh nzbaPL4211-30-76Y74:01:32Progress noteTXT1.2.840.220384.1.13.104.2.7.2 .504402|[id number] for patient waty53354-4LxnwEJXEKFCFVWJPypjlanbt C-CDA narrative textUT[address] Wg[id number] CVAFBJDZHKNHBPPCWXFYBY0348-72-84S34: 01:321.2.840.659102.1.72.3.15|1.2.84 0.531912.1.13.104.2.7.2.727879_19827 54720 [facility] 2023-09-11 14:45:00 0tIx8x/IQ2KQ8A92p5C/s+Gs+UKttrjPAu1m 2lb6KxYsPH75HsrmQVu4nIVhV20r2111-60- 21T14:45:00 Loaded pt w 50gm glucola, no issues. 38607-7Lwcdh ZeskFL7018-29-24A96:46:11Nurse NoteTXT1.2.840.350541.1.13.104.2.7.2 .116724|6272700582BQPmilhxxto for patient ydcp07478-0Qkabk NoteLNNARRATIVEFormatted C-CDA narrative [id number] OCZIDEOYXWOUOSUPRNHCES7209-10-64D58: 46:111.2.840.698250.1.72.3.15|1.2.84 0.979837.1.13.104.2.7.2.727879_19829 86999 [facility] 2023-09-11 14:45:00 abMCbxrE+9IYHwcgkUvsLzh/BXR1/py5U8So bEZRwmaBVJ3e/nv2ujONLUCC06025252-24- 21T14:45:00 Images from the original note were not included.Venipuncture collection performed by clean technique on the left anticubitus. Total of 1 attempts were made. Slight pressure and a bandage/dressing were applied to the site(s). The patient experienced no complications. The following specimens were processed according to instructions and sent to [facility] laboratories per lab order on 09/11/2023:LT BLUESST 3RED 1LAV 2PPTDK GREEN (LiHep)DK GREEN (SodH)GRAYDK BLUE (K2)DK BLUE (S)ACDBlood CultureNIPT/NTD 12963-0Eyaff IaueAS3306-22-40L43:52:52Nurse NoteTXT1.2.840.257462.1.13.104.2.7.2 .158935|[id number] for patient igec79674-9Vfybk NoteLNNARRATIVEFormatted C-CDA narrative [id number] BWKNIDBGIPTNQXKTYQUGWE7184-54-21J89: 52:521.2.840.669532.1.72.3.15|1.2.84 0.277139.1.13.104.2.7.2.727879_19836 14824 [facility] 2023-06-03 09:22:55 jJhgVj7YYDSWAXKk2ff7kzf/f/vc1tAwop0g cBMwIlyCn17aBijLQ+vRinNd0uK81476-49- 12T09:22:55 Pt is lost to f/u. 11889-6Elmcrnqtr encounter OtftXT0617-77-57M07:23:05Telephone encounter NoteTXT1.2.840.055390.1.13.104.2.7.2 .209946|[id number] for patient tcmm08469-2RdnsPE567699499Fdhwktds Garcia [address] Sw[id number] UGDSPSKGAJCSFWLIMKUIZR6164-49-22M16: 23:051.2.840.714590.1.72.3.15|1.2.84 0.641909.1.13.104.2.7.2.727879_18971 86920 Kaity Dixon LVN [facility] 2023-06-03 09:11:26 WVXlsjfUXyX2h86KdFfT54kJ0IkUdniqfvyH ec40EqwuFsByt5SxlUOJHcE/mcgS8710-28- 12T09:11:26 Patient has missed six appointments 04/08/23, 05/16/23, 05/20/23, 05/28/23, and 06/02/23. 62591-5Itegithyg encounter WozzGH0740-78-22L96:12:52Telephone encounter NoteTXT1.2.840.894035.1.13.104.2.7.2 .360054|[id number] for patient xlmr07088-8IuuxRG48885637Rejnsdy [id number] VWXBIJAGMCVRCBJCGBLJTH9693-10-53W69: 12:521.2.840.941211.1.72.3.15|1.2.84 0.315050.1.13.104.2.7.2.727879_18971 33081 Claudia [facility] 2023-05-22 09:04:12 USlpM/sThVmOhStR0g13csNPRIi2mTpecxYz WYcbGYhwIwTurNweyCxMKZ0UUhI92065-23- 31T09:04:12 Noted. 16840-0Lopybruod encounter PceuNV9614-30-61P24:04:22Telephone encounter NoteTXT1.2.840.564602.1.13.104.2.7.2 .349401|6072786473XKCjhnbfrak for patient jowy37922-2JhpqSP925104600Arllhewh Garcia [id number] KQAVVMDOLPSCXHRFJKGQVM5473-75-85N31: 04:221.2.840.092118.1.72.3.15|1.2.84 0.669195.1.13.104.2.7.2.727879_18879 23731 Kaity Dixon LVN [facility] 2023-05-22 08:47:14 lZl+uEP4csQBgE6x4Uua6gtJEzEOYZAY0ujV EJSLVgavQbCZt6P5mJTqLlOc8bsa1701-10- 31T08:47:14 Spoke with pt told prescription is at pharmacy and medications would be discussed at appointment. Please review and close 59922-8Nbsdkdixn encounter HakoMG5519-44-24A93:48:18Telephone encounter NoteTXT1.2.840.354949.1.13.104.2.7.2 .862438|3900884390ZGZgmnkicay for patient owdm34433-8YfcrYD9489937VY [id number] KALZBESTUHKRFQAWEJIHTW3042-71-15O05: 48:181.2.840.653466.1.72.3.15|1.2.84 0.539435.1.13.104.2.7.2.727879_18879 18067 NICOLAS Flores [facility] [facility] 2023-05-22 07:54:30 yhFf4kpuVARAjPWJNUxW2T4nv9x0QSdLr9BY Cfdyp/70PBIglsifnJf+4hDBYNk+07:54:30 Attempted to call patient, no answer, [place]. 52943-4Lljlqbgdo encounter TwixMQ5622-66-47Y28:54:51Telephone encounter NoteTXT1.2.840.711460.1.13.104.2.7.2 .210191|[id number] for patient yhcb18390-8ZujoESKLZPJVRJ[id number] EOMLIDJRYYQCYIHALQAKJC6844-86-21V14: 54:511.2.840.379741.1.72.3.15|1.2.84 0.613392.1.13.104.2.7.2.727879_18878 [id number] [facility] 2023-05-21 16:33:16 1ITwyW3GooRBXl4WB9YbObSNpgv5FARO7ohy zgURqrbN+SSYG6HhPdNF6f49xjGj8230-44- 30T16:33:16 Please call patient and let her know I erx zoloft to the pharmacy. I did not refill promethazine. She has appointment on 05/28 and can be discussed at that time. Any further refills for Zoloft can be discussed at that time as as well. 02794-8Mlnpbbhdx encounter HpulNS8620-09-51O04:36:02Telephone encounter NoteTXT1.2.840.181421.1.13.104.2.7.2 .405014|[id number] for patient djxd43118-1PsjjFJUUYHZZHE[id number] NZDFBFSHKBARKJBDZBDEMD6095-98-55Z72: 36:021.2.840.115852.1.72.3.15|1.2.84 0.084305.1.13.104.2.7.2.727879_18874 [id number] [facility] 2023-05-21 12:49:39 LNBSOdjgRVpJ+fGEdkFYILBvUzWzg2NNx6tZ kewxD0F0kb6vmhCzHEZcoiXaZv160282-57- 30T12:49:39 Called patient and scheduled appointment for 05/28/23. 14092-1Vtuxrjnvt encounter RtrzRA4911-65-35C74:49:59Telephone encounter NoteTXT1.2.840.177215.1.13.104.2.7.2 .792870|[id number] for patient eanp60070-9HxvdHV71768086Tqzaujl [id number] ZIGCJPJLHYALQIRZEDXCNF1403-79-48A38: 49:591.2.840.942520.1.72.3.15|1.2.84 0.214737.1.13.104.2.7.2.727879_18871 [id number] Claudia Chavez [facility] 2023-05-03 18:56:21 1b8VtVu5dwDucBzbT6xAzuAFLX5v1rodc2p2 JWNFule9v/UOeH8DyFkgnw4/fN2s4555-34- 12T18:56:21 Discharge instructions as follows given to [...] brown spotting after a vaginal exam. 2. [place], light red and brownish spotting is not [...] twice, 4 hours apart.Do not take any vijq-uru-ejxehmd medications for an illness unless you have [...] won t go away, even after taking nvgm-hrv-asdapam medicines as instructed by your care provider.Changes in vision, including blurry vision, a sensation of flashing lights or spots, or temporary loss of vision.Severe pain or tenderness in your upper stomach area. This may include nausea and vomiting. 27964-6Lmgjh DjlnIG0959-88-15P20:57:13Nurse NoteTXT1.2.840.774501.1.13.104.2.7.2 .231208|[id number] for patient [id number] A Black RN[address] Nl[id number] SZWISYNTJVZTUGXMBJMCKO9957-20-10T61: 57:131.2.840.523327.1.72.3.15|1.2.84 0.360569.1.13.104.2.7.2.727879_18729 [id number] Carmen Reyes RN [facility] 2023-05-03 17:44:55 CgtHa4yi40NgvHTQPeDkryEInK0rx3iRB2AJ K5czGCEdqEZkwLco21DpQHJegcwe4472-65- 12T17:44:55 Patient to ED via [facility] for cramping and spotting. Patient is 18 weeks . . Seen at [facility]. Patient triaged and take to L&D. Report called to July GONZALEZ. 56388-8Fqnztfore department Triage abikGM1667-07-23O64:45:52[facility] Triage noteTXT1.2.840.550260.1.13.104.2.7.2 .386382|[id number] for patient ecbn92959-7Uxaifspbl department [id number] Darlene Dutton RN[id number] GZWWXIMUXAAAEKQEKDHCMT1169-49-63L99: 45:521.2.840.259481.1.72.3.15|1.2.84 0.119370.1.13.104.2.7.2.727879_18729 [id number] Zach Dutton RN [facility] 2023-04-18 12:11:31 GuppkHCNt9DGtJp81gnx/0x8ukaDqx6kuMY4 Oiz/i+e7vX0/vDLW8QDJumvwQg5O0646-77- 28T12:11:31 Pt started on zoloft one week ago. States since then she has felt fatigued and nauseous. [place] spotting with cramping x2 days. LMP 4-7-23, currently 16w 0d . Goes to [facility] clinic. Report given to CARLOS Hernandez. 23422-6Tlrajdriw department Triage qrwjVN4091-31-45B59:18:23[facility] Triage noteTXT1.2.840.827211.1.13.104.2.7.2 .403886|[id number] for patient [id number] Fief RN[address] [id number] QFNHDZDSHRFKWHKUBBUVGM5929-67-30B57: 18:231.2.840.734121.1.72.3.15|1.2.84 0.683688.1.13.104.2.7.2.727879_18612 [id number] Bonnie Michael CARLOS [facility] 2023-04-17 14:27:19 1WCOYuS8ZP/DlM8kfk2CHZq5+k4zb62SA8m6 NaSaKRHqjaTEJFGfleEW6RTX7dH/T14:27:19 Pt states she is having severe side [...] recommendations. DENI CHOI RN 04/17/2023 2:34 PM 13162-1Ktxqxfcey encounter OwwuKK2509-54-25P60:35:13Telephone encounter NoteTXT1.2.840.916825.1.13.104.2.7.2 .682487|[id number] for patient vmxm019217959Upohaa Rodriguez RN[address] StreetTjq[id number] RFCVVDESHPKXTQYTMWNUBU4094-65-43F33: 35:131.2.840.696736.1.72.3.15|1.2.84 0.692948.1.13.104.2.7.2.727879_18603 [id number] Deni Choi RN [facility] 2023-04-17 14:14:18 muF7jksIlD4eyLfsuORuXmpMglD0Ic/XSi60 LViUL4e712DRnl1ekQ1TEHES8K757916-65- 27T14:14:18 Pt is requesting call back, states she is having bad side effects from anti-depressant. Please call [phone] (home) 56092-3Udmaqiaik encounter OpwnGE5380-82-01K03:16:20Telephone encounter NoteTXT1.2.840.638746.1.13.104.2.7.2 .121671|[id number] for patient gfxg6219009RW Allen[address] Ccmn[id number] AELBMCQVEFJTMHKOHKRVEV1944-79-93U67: 16:201.2.840.962353.1.72.3.15|1.2.84 0.463026.1.13.104.2.7.2.727879_18603 [id number] NICOLAS Flores [facility]
[2024-01-31] MEDS ORDERED: KETOROLAC 30 MG/ML INJ ONE (10:14)
[2024-01-31] MEDS ORDERED: NA CHLORIDE 0.9% 1,000 ML ONE (10:14)
[2024-01-31 10:24] LABS: Absolute Basophils 0.1 K/uL (0-0.5); Absolute Eosinophils 0.3 K/uL (0-0.5); Absolute Lymphocytes (CBC) 2.1 K/uL (0.7-4.9); Absolute Monocytes 0.3 K/uL (0.1-1.3); Hematocrit 34.6 % (36.0-45.0); Hemoglobin 10.8 g/dL (12.0-15.0); Lymphocytes % 36.5 % (15.3-44.8); MCH 21.9 pg (27.0-35.0); MCHC 31.2 g/dL (32.0-36.0); MCV 70.3 fL (80-100); MPV 9.2 fL (7.6-11.3); Monocytes % 5.9 % (3.3-12.3); Neutrophils % 51.6 % (41.7-73.7); Platelets 196 thou/uL (152-406); RBC Red Blood Cell Count 4.92 M/uL (3.86-4.86); Red Cell Distribution Width 17.7 % (12.1-15.2)
[2024-01-31 10:31] LABS: Specific Gravity 1.013 (1.005-1.030)
[2024-01-31 10:33] LABS: Specific Gravity 1.014 (1.005-1.030); Urine Bacteria <20 /HPF (<20); Urine Bilirubin NEGATIVE (Negative); Urine Blood Negative (Negative); Urine Clarity Extremely Turbid (Clear); Urine Color Light-Yellow (Yellow); Urine Culture Reflex Order NOT NEEDED; Urine Glucose NEGATIVE (Negative); Urine Ketones NEGATIVE (Negative); Urine Microscopic Reflex YN ORDER UMIC; Urine Mucus Slight /HPF (None Seen); Urine Nitrite NEGATIVE (Negative); Urine Protein NEGATIVE (Negative); Urine RBC None Seen /HPF (None Seen); Urine Urobilinogen Normal (Normal); Urine WBC <5 /HPF (<5); Urine pH 6.5 (5.0-7.0)
[2024-01-31 10:38] LABS: Albumin 3.8 g/dL (3.4-5.0); Anion Gap 5.9 mEq/L (5.0-15.0); Bilirubin Total 0.5 mg/dL (0.2-1.0); Potassium 3.9 mEq/L (3.5-5.1); Protein, Total 7.8 g/dL (6.4-8.2)
--- NOTE | 2024-01-31 10:44 | RAD REPORT ---
EXAM DESCRIPTION: CT - Head Brain Wo Cont - 01/31/2024 10:18 am CLINICAL HISTORY: L mastoid swelling COMPARISON: HEAD BRAIN W O CONTRAST dated 02/03/2014 TECHNIQUE: All CT scans are performed using dose optimization technique as appropriate and may inclu de automated exposure control or mA/KV adjustment according to patient size. FINDINGS: No intracranial hemorrhage, hydrocephalus or extra-axial fluid collection.No areas of brai n edema or evidence of midline shift. The paranasal sinuses and mastoids are clear. The calvarium is intact. Posterior to the left ear ther e is focal soft tissue swelling measure up to 8 mm in thickness at the site of palpable abnormality. IMPRESSION: No acute intracranial abnormality. Nonspecific soft tissue prominence measuring 8 mm in thickness posterior to the left ear. The mastoid air cell is unremarkable.
--- NOTE | 2024-01-31 11:02 | EDPHYS ---
Physician Documentation [facility] Name: Arina Valdes Age: 23 yrs Sex: Female : 2000 Arrival Date: 01/31/2024 Time: 09:44 Bed 18 Private MD: ED Physician Loyd Araiza HPI: 01/30 09:59 This 23 yrs old Female presents to ER via Unassigned with complaints of ec2 Abdominal Pain, Pain on left side of head. 09:59 Patient arrives today due to concern for abdominal pain along with left hip pain. ec2 Patient reports she been experiencing abdominal pain intermittently for the past several months. Patient reports no specific associated vomiting or diarrhea. Patient reports no urinary complaints. Additionally patient also with concern regarding swelling behind the left ear and pain in the area. Denies any falls injuries or trauma. Patient reports no fevers or chills.. Historical: - Allergies: 10:00 No Known Drug Allergies; hb - Home Meds: 10:00 BuSpar Oral [Active]; hb - PMHx: 10:00 Anxiety; depressive disorder; Heart Murmur; pre eclampsia; UTI; hb - PSHx: 10:00 None; hb - Immunization history:: Adult Immunizations up to date. - Infectious Disease History:: Denies. - Social history:: Smoking status: Reported history of juuling and/or vaping. ROS: 09:59 Constitutional: as per hpi ec2 Exam: 09:59 Constitutional: GEN: NAD Head: atraumatic Eyes: EOMI Ears: External ears are ec2 normal. CV: regular rate LUNGS: no respiratory distress ABD: non-distended, soft, not guarding, not rigid, nontender. SKIN: no evidence of rashes, TTP to the left mastoid. MSK: no evidence of trauma NEURO: moves all extremities equally Vital Signs: 09:59 BP 114 / 70; Pulse 78; Resp 16; Temp 98.5(O); Pulse Ox 100% on R/A; Weight 97.52 kg; hb Height 5 ft. 5 in. ; Pain 10/10; 10:33 BP 117 / 73; Pulse 71; Resp 18; Pulse Ox 99% on R/A; rs5 11:05 BP 121 / 74; Pulse 73; Resp 18; Pulse Ox 99% on R/A; rs5 09:59 Body Mass Index 35.78 (97.52 kg, 165.1 cm) hb 09:59 Pain Scale: Adult hb MDM: 09:51 Patient medically screened. ec2 09:59 Data reviewed: vital signs, nurses notes. ED course: Patient arrives today for ec2 evaluation of left posterior ear pain as well as abdominal pain. Examination remarkable for abdominal findings and mastoid findings as above. Will obtain lab work, CT scan of the head. Evaluate for processes such as mastoiditis, will check lab work to evaluate for renal dysfunction, liver pathology, UTI as well as .. 10:49 ED course: CBC shows slight anemia, likely iron deficiency given MCV. Metabolic profile ec2 with appropriate electrolytes, liver function, renal function. Urine is pertinent for leuk esterase and turbid appearance. Urine is non. Lipase within normal ranges. CT scan shows soft tissue prominence of the left posterior ear, no specific fluctuance or fluid appreciated on my examination, mastoid is unremarkable. Will treat for cellulitis and have patient follow-up primary care doctor as needed. Instructed patient hmnb-dhl-dajddrk medications as well. Return precautions given . 01/30 09:58 Order name: CBC with Diff ec2 01/30 09:58 Order name: CMP; Complete Time: 10:48 ec2 01/30 09:58 Order name: Lipase; Complete Time: 10:48 ec2 01/30 09:58 Order name: Test, Urine; Complete Time: 10:48 ec2 01/30 09:58 Order name: Urinalysis w/ reflexes; Complete Time: 10:48 ec2 01/30 10:29 Order name: CBC Smear Scan EDMS 01/30 09:58 Order name: CT Head Brain wo Cont; Complete Time: 10:48 ec2 01/30 09:58 Order name: IV Saline Lock; Complete Time: 10:28 ec2 01/30 09:58 Order name: Labs collected and sent; Complete Time: 10:28 ec2 Administered Medications: 10:18 Drug: TORadol - Ketorolac IVP 15 mg IVP once Route: IVP; Site: right antecubital; rs5 10:41 Follow up: Response: No adverse reaction; Pain is decreased rs5 10:18 Drug: NS 0.9% IV 1000 ml IV at 1 bolus Per protocol; 1000 mL bolus Route: IV; Rate: 1 rs5 bolus; Site: right antecubital; 10:41 Follow up: Response: No adverse reaction rs5 11:09 Follow up: IV Status: Completed infusion rs5 Disposition Summary: 01/31/24 11:01 Discharge Ordered Notes: Location: Home ec2 Condition: Stable ec2 Diagnosis - Cellulitis, unspecified ec2 - Abdominal pain, unspecified ec2 Followup: ec2 - With: Private Physician - When: - Reason: Re-evaluation by your physician Discharge Instructions: - Discharge Summary Sheet ec2 - Cellulitis, Adult ec2 Forms: - Medication Reconciliation Form ec2 - Antibiotic Education ec2 - Prescription Opioid Use ec2 - Patient Portal Instructions ec2 - Leadership Thank You Letter ec2 Prescriptions: - Cephalexin 500 mg Oral capsule - take 1 capsule ORAL route every 12 hours for 7 days; 14 capsule; Refills: 0, ec2 Product Selection Permitted Signatures: Dispatcher [employer] Anita Das RN RN Liban Robles RN RN rs5 Loyd Araiza MD MD ec2 Corrections: (The following items were deleted from the chart) 09:59 09:59 CBC+H.LAB.BRZ ordered. EDMS EDMS 09:59 09:59 COMPREHENSIVE METABOLIC PANEL+C.LAB.BRZ ordered. EDMS EDMS 09:59 09:59 LIPASE+C.LAB.BRZ ordered. EDMS EDMS 09:59 09:59 Test, Urine+UC.LAB.BRZ ordered. EDMS EDMS 09:59 09:59 Urinalysis+U.LAB.BRZ ordered. EDWA EDMS
--- NOTE | 2024-01-31 11:02 | ER ---
Nurse's Notes [facility] Name: Arina Valdes Age: 23 yrs Sex: Female : 2000 Arrival Date: 01/31/2024 Time: 09:44 Bed 18 Private MD: Diagnosis: Cellulitis, unspecified;Abdominal pain, unspecified Presentation: 01/30 09:59 Chief complaint: Abdominal cramping that radiates to back and painful lump behind left hb ear x 1 month. Coronavirus screen: At this time, the client does not indicate any symptoms associated with coronavirus-19. Ebola Screen: No symptoms or risks identified at this time. Initial Sepsis Screen: Does the patient meet any 2 criteria? No. Patient's initial sepsis screen is negative. Does the patient have a suspected source of infection? No. Patient's initial sepsis screen is negative. Risk Assessment: Do you want to hurt yourself or someone else? Patient reports no desire to harm self or others. Onset of symptoms was December 2023. 09:59 Method Of Arrival: Ambulatory hb 09:59 Acuity: PEYTON 3 hb Triage Assessment: 10:00 General: Appears in no apparent distress. Behavior is calm, cooperative. Pain: Pain hb currently is 10 out of 10 on a pain scale. Neuro: Level of Consciousness is awake, alert, obeys commands, Oriented to person, place, time, situation. Cardiovascular: Patient's skin is warm and dry. Respiratory: Respiratory effort is even, unlabored, Respiratory pattern is regular, symmetrical. GI: Reports lower abdominal pain, upper abdominal pain. Historical: - Allergies: 10:00 No Known Drug Allergies; hb - Home Meds: 10:00 BuSpar Oral [Active]; hb - PMHx: 10:00 Anxiety; depressive disorder; Heart Murmur; pre eclampsia; UTI; hb - PSHx: 10:00 None; hb - Immunization history:: Adult Immunizations up to date. - Infectious Disease History:: Denies. - Social history:: Smoking status: Reported history of juuling and/or vaping. Screenin:52 [facility] ED Fall Risk Assessment (Adult) History of falling in the last 3 months, rs5 including since admission No falls in past 3 months (0 pts) Confusion or Disorientation No (0 pts) Intoxicated or Sedated No (0 pts) Impaired Gait No (0 pts) Mobility Assist Device Used No (0 pt) Altered Elimination No (0 pt) Score/Fall Risk Level 0 - 2 = Low Risk Oriented to surroundings, Maintained a safe environment. Abuse screen: Denies threats or abuse. Nutritional screening: No deficits noted. Tuberculosis screening: No symptoms or risk factors identified. Assessment: 09:52 General: Appears in no apparent distress. uncomfortable, Behavior is calm, cooperative. rs5 Pain: Complains of pain in abdomen and back of left ear Pain currently is 7 out of 10 on a pain scale. Quality of pain is described as aching, Is continuous. Neuro: Level of Consciousness is awake, alert, obeys commands, Oriented to person, place, time, situation. Cardiovascular: Patient's skin is warm and dry. Rhythm is regular. Respiratory: Airway is patent Respiratory effort is even, unlabored, Respiratory pattern is regular, symmetrical. GI: Abdomen is round non-distended, Bowel sounds present X 4 quads. Abd is soft and non tender X 4 quads. : No signs and/or symptoms were reported regarding the genitourinary system. EENT: No signs and/or symptoms were reported regarding the EENT system. Derm: Skin is intact, Skin is pink, warm \\T\\ dry. small lump palpated behind left ear. pt states "I've had this lump since I was a kid and I was told by a doctor that it is a benign tumor. It started hurting two weeks ago and the pains been getting progressively worse". 09:52 Musculoskeletal: Range of motion: intact in all extremities. rs5 11:05 Reassessment: Patient and/or family updated on plan of care and expected duration. Pain rs5 level reassessed. Patient is alert, oriented x 3, equal unlabored respirations, skin warm/dry/pink. Patient denies pain at this time. Patient states feeling better. 11:18 Reassessment: Patient and/or family updated on plan of care and expected duration. Pain rs5 level reassessed. Patient is alert, oriented x 3, equal unlabored respirations, skin warm/dry/pink. Vital Signs: 09:59 BP 114 / 70; Pulse 78; Resp 16; Temp 98.5(O); Pulse Ox 100% on R/A; Weight 97.52 kg; hb Height 5 ft. 5 in. ; Pain 10/10; 10:33 BP 117 / 73; Pulse 71; Resp 18; Pulse Ox 99% on R/A; rs5 11:05 BP 121 / 74; Pulse 73; Resp 18; Pulse Ox 99% on R/A; rs5 09:59 Body Mass Index 35.78 (97.52 kg, 165.1 cm) hb 09:59 Pain Scale: Adult hb ED Course: 09:48 Patient arrived in ED. ts1 09:50 Loyd Araiza MD is Attending Physician. ec2 09:52 Patient has correct armband on for positive identification. Placed in gown. Bed in low rs5 position. Call light in reach. Side rails up X2. 09:55 Liban Robles, RN is Primary Nurse. rs5 10:00 Triage completed. hb 10:00 Arm band placed on right wrist. hb 10:19 CT Head Brain wo Cont In Process Unspecified. EDMS 10:33 No provider procedures requiring assistance completed. rs5 11:18 IV discontinued, intact, bleeding controlled, No redness/swelling at site. Pressure rs5 dressing applied. Administered Medications: 10:18 Drug: TORadol - Ketorolac IVP 15 mg IVP once Route: IVP; Site: right antecubital; rs5 10:41 Follow up: Response: No adverse reaction; Pain is decreased rs5 10:18 Drug: NS 0.9% IV 1000 ml IV at 1 bolus Per protocol; 1000 mL bolus Route: IV; Rate: 1 rs5 bolus; Site: right antecubital; 10:41 Follow up: Response: No adverse reaction rs5 11:09 Follow up: IV Status: Completed infusion rs5 Medication: 09:52 VIS not applicable for this client. rs5 Outcome: 11:01 Discharge ordered by . ec2 11:18 Discharged to home ambulatory, rs5 11:18 Condition: stable 11:18 Discharge instructions given to patient, Instructed on discharge instructions, follow up and referral plans. medication usage, Demonstrated understanding of instructions, follow-up care, Prescriptions given X 1, 11:20 Patient left the ED. rs5 Signatures: Dispatcher [employer] EDAnita Gardner RN RN Liban Robles RN RN rs5 Yanira Moore PAS PAS ts1 Araiza, Loyd, MD MD ec2
[2024-01-31 11:26] VITALS: TEMP 98.5
[2024-01-31 11:43] VITALS: BP 117/73; O2SAT 99
[2024-01-31 11:56] LABS: Blood Morphology Comment NOTED (NOT SEEN); Hypochromasia 2+; Platelet Estimate ADEQ; White Blood Cell Scan OK (OK)
== END 2024-01-31 11:20 | disposition home or self-care (01) ==
LOC: ER 09:44
DX: R10.9 Unspecified abdominal pain (principal); L03.811 Cellulitis of head [any part, except face]; F32.A Depression, unspecified; F41.9 Anxiety disorder, unspecified
CPT/HCPCS: 96361; 85025; 81001; 36415; 81025; 83690; 80053; 70450; 96374; 99284; J7030

== ENCOUNTER 2024-02-17 08:06 | Emergency (ER) | payer OTHER, SELFPAY ==
--- NOTE | 2024-02-17 08:19 | ER ---
Nurse's Notes [facility] Name: Arina Valdes Age: 23 yrs Sex: Female : 2000 Arrival Date: 02/17/2024 Time: 08:06 Bed 12 Private MD: Diagnosis: Contusion of other part of head Presentation: 02/16 08:10 Chief complaint: Patient states: she woke up to having drywall fall on her face. ap3 patient states the drywall fell from the wall, not the ceiling. patient complains of pain to her right eyebrow. patient currently rates her pain as a 5/10 on the pain scale. Coronavirus screen: At this time, the client does not indicate any symptoms associated with coronavirus-19. Ebola Screen: No symptoms or risks identified at this time. Mechanism of Injury: The problem was sustained at home, resulted from drywall falling from wall. Initial Sepsis Screen: Does the patient meet any 2 criteria? No. Patient's initial sepsis screen is negative. Does the patient have a suspected source of infection? No. Patient's initial sepsis screen is negative. Risk Assessment: Do you want to hurt yourself or someone else? Patient reports no desire to harm self or others. Onset of symptoms was February 17, 2024. 08:10 Method Of Arrival: Ambulatory ap3 08:10 Acuity: PEYTON 4 ap3 Triage Assessment: 08:13 General: Appears in no apparent distress. Behavior is calm, cooperative, appropriate ap3 for age. Pain: Complains of pain in outer aspect of right eyebrow Pain currently is 5 out of 10 on a pain scale. Neuro: Level of Consciousness is awake, alert, obeys commands, Oriented to person, place, time, situation, Appropriate for age Moves all extremities. Gait is steady, Speech is normal, Facial symmetry appears normal. Neuro: Reports pain to right eyebrow. Cardiovascular: Patient's skin is warm and dry. Respiratory: Airway is patent Respiratory effort is even, unlabored, Respiratory pattern is regular, symmetrical. MECHANICAL LEAD: 08:25 LMP N/A - control method, Not ll1 Historical: - Allergies: 08:12 No Known Allergies; ap3 - Home Meds: 08:12 BuSpar Oral [Active]; ap3 - PMHx: 08:12 Anxiety; depressive disorder; Heart Murmur; pre eclampsia; UTI; ap3 - Immunization history:: Client reports receiving the 2nd dose of the Covid vaccine. - Infectious Disease History:: Denies. - Social history:: Smoking status: Reported history of juuling and/or vaping. Patient uses alcohol, occasionally. Screenin:13 [facility] ED Fall Risk Assessment (Adult) History of falling in the last 3 months, ap3 including since admission No falls in past 3 months (0 pts) Confusion or Disorientation No (0 pts) Intoxicated or Sedated No (0 pts) Impaired Gait No (0 pts) Mobility Assist Device Used No (0 pt) Altered Elimination No (0 pt) Score/Fall Risk Level 0 - 2 = Low Risk Oriented to surroundings, Maintained a safe environment, Educated pt \T\ family on fall prevention, incl call for assistance when getting out of bed, Assessed \T\ reinforced patient's understanding of fall precautions, Provided non-skid footwear, Hourly rounding (assess needs \T\ fall precautionary measures) done, Used ambulatory aids as needed (educated on \T\ assisted with), Used gait belt as appropriate. Abuse screen: Denies threats or abuse. Nutritional screening: No deficits noted. Tuberculosis screening: No symptoms or risk factors identified. Assessment: 08:23 Reassessment: No changes from previously documented assessment. Patient and/or family ll1 updated on plan of care and expected duration. Pain level reassessed. Patient is alert, oriented x 3, equal unlabored respirations, skin warm/dry/pink. Vital Signs: 08:10 BP 115 / 53; Pulse 69; Resp 17; Temp 98.3; Pulse Ox 100% ; Weight 98.43 kg; Height 5 ap3 ft. 5 in. ; Pain 5/10; 08:10 Body Mass Index 36.11 (98.43 kg, 165.1 cm) ap3 08:10 Pain Scale: Adult ap3 Giovanni Coma Score: 08:10 Eye Response: spontaneous(4). Motor Response: obeys commands(6). Verbal Response: ap3 oriented(5). Total: 15. ED Course: 08:07 Patient arrived in ED. mr 08:12 Triage completed. ap3 08:14 Aba Rich DO is Attending Physician. ms3 08:14 Arm band placed on right wrist. ap3 08:18 Donavon Hu DO is Referral Physician. ms3 08:23 No provider procedures requiring assistance completed. Patient did not have IV access ll1 during this emergency room visit. 08:24 Patient has correct armband on for positive identification. Provided Education on: ll1 return to ED as needed. Administered Medications: No medications were administered Medication: 08:25 VIS not applicable for this client. ll1 Outcome: 08:19 Discharge ordered by MD. ms3 08:23 Discharged to home ambulatory, ll1 08:23 Condition: stable 08:23 Discharge instructions given to patient, Instructed on discharge instructions, follow up and referral plans. Demonstrated understanding of instructions, follow-up care, 08:25 Patient left the ED. ll1 Signatures: Citlali Townsend, Reg Reg mr Tiffany Park, RN RN ap3 Piper Matias, RN RN ll1 Aba Rich DO DO ms3
--- OUTSIDE RECORDS SUMMARY | 2024-02-17 08:24 | XMS REPORT | Continuity of Care Document ---
Author Name Unknown Address [address] [facility] [place] [address] [facility] thconnect Address [address] [facility] [address] [place] [address] Care Team Providers Care Social Science Professor Name Role Phone KORY CRUZ Primary Care Physician Unavailab le Doctor Unassigned, Excello Attending Clinician U Kory Yo MD Attending Clinician [phone] KORY CRUZ Attending Clinician Unavailable Xenia Angel MD Attending Clinician + Agnes Pedraza MD Attending Clinician [phone] ARIELA WILKINSON Attending Clinician ARIELA Dunn Attending Clinician Jose Antonio candelario 2, [facility] Attending Clinician Unavailable MARY AVINA Attending Clinician Unavailable Mary Avina MD Attending Clinician [phone] ELOY CHAVEZ Attending Clinician UnavailNacho Mccarty DO Attending Clinician [phone] Sheldon KENNEDY, Kristal Phelps Attending Clinician + Scott KENNEDY, Eloy Ramires Attending Clinician [phone], [facility] Us Room Attending Clinician Unavailcatherine Melton MD, Sunita Segura Attending Clinician [phone] Nurse, [facility] Attending Clinician Amanda Krystal Morel CNM Attending Clinician [phone] Sammy RN, Heidi Stinson Attending Clinician Unavaila kam SMITHPHuy Attending Clinician + HUY MENDOZA Attending Clinician Unavail SHELLEY Mccarthy Attending Clinician Unav costa Ultrasound, [facility] Attending Clinician Unavaila Shelley Ortiz MD Attending Clinician + KRYSTAL LOW Attending Clinician Unavaila YVONNE Montano Attending Clinician Unavailable Yvonne Rodriguez Attending Clinician [phone] [facility] Attending Clinician Unava Broderick Diaz DO Attending Clinician [phone] JOSY CHAUDHARY Attending Clinician Unavailable KRISSY GREEN Attending Clinician Unavailable Josy Chaudhary PA-C Attending Clinician [phone] 1, [facility] Attending Clinician Unavailable ARIELA WILKINSON Admitting Clinician KORY Weller Admitting Clinician Unavailable Anthony KENNEDY, Kory Vasquez Admitting Clinician [phone] MARY AVINA Admitting Clinician Unavailable Fabrice KENNEDY, Mary Masters Admitting Clinician [phone] ELOY CHAVEZ Admitting Clinician UnavailEloy Lewis MD Admitting Clinician + [phone] Payers Payer Name Policy Type Policy Number Effective Date Expirati on Date Source [facility] [id number] 2023 00:00:00 MEDICAID PENDING PENDING 2023 00:00:00 2023 00:00:00 [place] [id number] 2023 00:00:00 2023 00:00:00 [facility] KIRAN MCCLELLAND [id number] 2018 00:00:00 Problems Condition Name Condition Details Condition Category Status Onset Date Resolution Date Last Treatment Date Treating Clinician Comments Source Normal labor Normal labor Disease Active 09-25 00:00: 00 [facility] Liveborn infant, of [place] , born in hospital by vaginal delivery Liveborn , of [place] , born in hospital by vaginal delivery Disease Active 09-25 00:00: 00 [facility] 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 Disease Active 2022-09 00:00: 00 [facility] 37 weeks gestation of 37 weeks gestation of Disease Active 2022-09 00:00: 00 [facility] Drug use complicati ng in third trimester Drug use complicati ng in third trimester Disease Active 2022-09 00:00: 00 [facility] 38 weeks gestation of 38 weeks gestation of Disease Active 2022-09 00:00: 00 [facility] Fall (on) (from) unspecifie d stairs and steps, sequela Fall (on) (from) unspecifie d stairs and steps, sequela Disease Active 2022-09 00:00: 00 [facility] Injury Injury Disease Active 2022-09 00:00: 00 [facility] Fall Fall Disease Active 2022-09 00:00: 00 [facility] High-risk in third trimester High-risk in third trimester Disease Active 2022-09 00:00: 00 [facility] Limited care in third trimester Limited care in third trimester Disease Active 2022-09 00:00: 00 [facility] Cramping affecting , antepartum Cramping affecting , antepartum Disease Active 2022-09 00:00: 00 [facility] 30 weeks gestation of 30 weeks gestation of Disease Active 2022-09 00:00: 00 [facility] 31 weeks gestation of 31 weeks gestation of Disease Active 2022-09 00:00: 00 [facility] uterine contractio ns, antepartum , third trimester uterine contractio ns, antepartum , third trimester Disease Active 2022-09 00:00: 00 [facility] 33 weeks gestation of 33 weeks gestation of Disease Active 2022-09 00:00: 00 [facility] Trichomona l vaginitis during Trichomona l vaginitis during Disease Active 02-14 00:00: 00 [facility] Maternal varicella, non-immune Maternal varicella, non-immune Disease Active 02-12 00:00: 00 [facility] Obesity affecting Obesity affecting Disease Active 02-11 00:00: 00 [facility] Nausea and vomiting during Nausea and vomiting during Disease Active 02-11 00:00: 00 [facility] History of heart murmur in childhood History of heart murmur in childhood Disease Active 02-11 00:00: 00 Overview: Formattin g of this note might be different from the original. Age 12EKG NSR with sinus arrhythmi a. Normal EKG compared to 7. [facility] Family history of autism Family history of autism Disease Active 02-11 00:00: 00 Overview: Formattin g of this note might be different from the original. Patient sister and daughter [facility] Nexplanon insertion Nexplanon insertion Disease Active 2018-09 00:00: 00 [facility] Nexplanon in place Nexplanon in place Disease Active 2018-09 00:00: 00 [facility] Encounter for female control Encounter for female control Disease Active 2018-09 00:00: 00 [facility] Anemia, antepartum , third trimester Anemia, antepartum , third trimester Disease Active 2018-09 1-12 00:00: 00 [facility] Obesity (BMI 30-39.9) Obesity (BMI 30-39.9) Disease Active 01-04 00:00: 00 [facility] History of depression History of depression Disease Active 01-04 00:00: 00 [facility] History of anxiety and depression History of anxiety and depression Disease Active 01-04 00:00: 00 [facility] Anxiety during Anxiety during Disease Active 01-04 00:00: 00 [facility] Allergies, Adverse Reactions, Alerts Allergy Name Allergy Type Status Severity Reaction(s) Onset Date Inactive Date Treating Clinician Comments Source NO KNOWN ALLERGIE S Drug Class Active [facility] Social History Social Habit Start Date Stop Date Quantity Comments Source ASSERTION 2023-01-10 00:00:00 [facility] History of tobacco use Passive smoker [facility] Gender identity [facility] Sexual orientation U [facility] Alcohol intake 2023-10-10 00:00:00 2023-10-10 00:00:00 Current non-drinker of alcohol (finding) [facility] Tobacco Comment 2023-02-11 00:00:00 2023-02-11 00:00:00 fiance smokes outside [facility] Tobacco use and exposure 2023-02-11 00:00:00 2023-02-11 00:00:00 Smokeless tobacco non-user [facility] History of Social function 2023-02-11 00:00:00 2023-02-11 00:00:00 [facility] Exposure to SARS-CoV-2 (event) 2022-01-06 00:00:00 2022-01-16 20:33:00 Unable to assess [facility] Sex Assigned At 2000 00:00:00 2000 00:00:00 [facility] Smoking Status Start Date Stop Date Source Never smoked tobacco [facility] Medications Ordered Medication Name Filled Medication Name Start Date Stop Date Current Medication? Ordering Clinician Indication Dosage Frequency Signature (SIG) Comments Components Source SERTraline (ZOLOFT) 50 mg tablet 10-17 00:00: 00 Yes [id number] 50mg Take 1 tablet by mouth in the morning. [facility] busPIRone 10 mg tablet 10-10 00:00: 00 Yes [id number] 10mg Take 1 tablet by mouth in the morning and 1 tablet in the evening. [facility] SERTraline (ZOLOFT) 25 mg tablet 10-10 00:00: 00 10-18 05:59 :00 No [id number] 25mg Take 1 tablet by mouth in the morning for 7 days. [facility] vitamin w/FA tablet 09-26 00:00: 00 Yes [id number] 1{tbl} Take 1 tablet by mouth in the morning. [facility] docusate 100 mg capsule 09-26 00:00: 00 Yes [id number] 200mg Take 2 capsules by mouth once daily as needed for Constipati on. [facility] ferrous sulfate 325 mg (65 mg iron) tablet 09-26 00:00: 00 Yes [id number] 325mg Take 1 tablet by mouth in the morning and 1 tablet in the evening. [facility] ibuprofen 600 mg tablet 09-26 00:00: 00 Yes [id number] 600mg Take 1 tablet by mouth every 6 (six) hours as needed (Pain). Take with food or milk. [facility] witch Gilbert (TUCKS) 50 % topical pad 09-25 16:22: 14 Yes Topical, Q4HPRN, Starting on Airam 09/25/23 at 1022, Until Discontinu ed, Routine, rectal/hem orrhoidal [facility] rho(D) immune globulin (RHOGAM) syringe 300 mcg 09-25 16:18: 36 Yes 300ug 300 mcg, Intramuscu lar, ONCE, For 1 dose, Conditiona l, Routine [facility] HYDROcodone -acetaminop hen (NORCO 5) 5-325 mg tablet 1 tablet 09-25 16:18: 06 Yes 1{tbl} 1 tablet, Oral, Q6HPRN, Starting on Airam 09/25/23 at 1018, Until Discontinu ed, Routine, Pain (scale 7-10) [facility] ibuprofen (IBU) tablet 600 mg 09-25 16:18: 06 Yes 600mg 600 mg, Oral, Q6HPRN, Starting on Airam 09/25/23 at 1018, Until Discontinu ed, Routine, Pain (scale 4-6) [facility] acetaminoph en (TYLENOL) tablet 650 mg 09-25 16:18: 06 Yes 650mg 650 mg, Oral, Q6HPRN, Starting on Airam 09/25/23 at 1018, Until Discontinu ed, Routine, Pain (scale 1-3) [facility] diphenhydrA MINE (BENADRYL) tablet 25 mg 09-25 16:18: 06 Yes 25mg 25 mg, Oral, Q6HPRN, Starting on Airam 09/25/23 at 1018, Until Discontinu ed, Routine, Sleep, Itching [facility] ondansetron (ZOFRAN (PF)) injection 4 mg 09-25 16:18: 06 Yes 4mg 4 mg, Slow IV Push, Q8HPRN, Starting on Airam 09/25/23 at 1018, Until Discontinu ed, Routine, Nausea and Vomiting (N/V) [facility] simethicone (GAS RELIEF (SIMETHICON E)) chewable tablet 160 mg 09-25 16:18: 06 Yes 160mg 160 mg, Oral, PC+HSPRN, Starting on Airam 09/25/23 at 1018, Until Discontinu ed, Routine, Gas [facility] docusate (COLACE) capsule 200 mg 09-25 16:18: 06 Yes 200mg 200 mg, Oral, QDAILYPRN, Starting on Airam 09/25/23 at 1018, Until Discontinu ed, Routine, Constipati on [facility] magnesium hydroxide (MILK OF MAGNESIA) 400 mg/5 mL suspension 30 mL 09-25 16:18: 06 Yes 30mL 30 mL, Oral, QDAILYPRN, Starting on Airam 09/25/23 at 1018, Until Discontinu ed, Routine, Constipati on [facility] benzocaine- menthol (DERMOPLAST ) 20-0.5 % topical spray 09-25 16:18: 06 Yes Topical, PRN, Starting on Airam 09/25/23 at 1018, Until Discontinu ed, Routine, Perineum discomfort [facility] SERTraline (ZOLOFT) tablet 100 mg 09-25 15:00: 00 Yes 100mg 100 mg, Oral, DAILY, First dose on Airam 09/25/23 at 0900, Until Discontinu ed, Routine [facility] fentaNYL-ro pivacaine 2 mcg/mL-0.1 % (PF) in NS 200 mL epidural infusion RTU 09-25 09:30: 00 09-25 14:54 :08 No Epidural, ONCE INTRA PROCEDURE, Starting on Airam 09/25/23 at 0330, Until Airam 09/25/23 at 0854, Routine, Intra-op [facility] lidocaine-e pinephrine (XYLOCAINE W/EPINEPHRI NE) 1.5 %-1:200,000 injection 09-25 09:30: 00 09-25 14:54 :08 No Intraderma l, ONCE INTRA PROCEDURE, Starting on Airam 09/25/23 at 0330, Until Airam 09/25/23 at 0854, Routine, Intra-op [facility] FENTanyl PF (SUBLIMAZE (PF)) injection 100 mcg 09-25 07:40: 08 09-25 16:22 :14 No 100ug 100 mcg, Slow IV Push, Q1HPRN, Starting on Airam 09/25/23 at 0140, Until Airam 09/25/23 at 1022, Routine, contractio n pain without an epidural and SVE < 8 cm and Cat I strip [facility] ondansetron (ZOFRAN (PF)) injection 4 mg 09-25 07:40: 00 09-25 16:22 :14 No 4mg 4 mg, Slow IV Push, Q8HPRN, Nausea and Vomiting (N/V), Starting on Airam 24 at 0140
Do ses of ondansetro n 16 mg and above need to be administer ed via IV piggyback. For Dose >=24mg ECG monitoring is advisable.
[facility] oxytocin (PITOCIN) 30 units in NS 500 mL IV infusion 09-25 07:38: 50 09-25 16:21 :41 No 2mU/min at 2-40 mL/hr, IV Infusion, TITRATE, Starting on Airam 09/25/23 at 0138, Until Airam 24 at 1021, ABHAY [facility] oxytocin (PITOCIN) 30 units in NS 500 mL IV infusion 09-25 07:36: 45 09-25 13:45 :00 No 600mL/h 600 mL/hr, IV Infusion, PRN, PPH, Starting on Airam 09/25/23 at 0136, For 1 dose
As instructed by physician at bedside.<b r> [facility] lactated ringers IV infusion 500 mL 09-25 07:36: 45 09-25 16:21 :41 No 500mL at 999 mL/hr, 500 mL, IV Infusion, PRN - SEE INSTRUCTIO NS, Starting on Airam 09/25/23 at 0136, Until Airam 24 at 1021, Routine [facility] D5W-LR IV infusion 1,000 mL 09-25 07:36: 45 09-25 16:21 :40 No 1000mL at 1-125 mL/hr, IV Infusion, TITRATE, Starting on Airam 09/25/23 at 0136, Until Airam 124 at 1021, Routine [facility] famotidine 20 mg tablet 2022-09 00:00: 00 09-26 00:00 :00 No [id number] 20mg Take 1 tablet by mouth in the morning and 1 tablet in the evening. [facility] lactated ringers IV infusion 1,000 mL 2022-09 09:30: 00 Yes 1000mL at 125 mL/hr, 1,000 mL, IV Infusion, CONTINUOUS , Starting on Fri09/16/23 at 0330, Until Discontinu ed, Routine [facility] acetaminoph en (TYLENOL) tablet 650 mg 2022-09 09:17: 17 Yes 650mg 650 mg, Oral, Q6HPRN, Starting on Fri09/16/23 at 0317, Until Discontinu ed, Routine, Pain (scale 1-3) [facility] SERTraline 100 mg tablet 2022-09 00:00: 00 09-26 00:00 :00 No [id number] 109 100mg Take 1 tablet by mouth in the morning. [facility] proMETHazin e (PHENERGAN) tablet 25 mg 2022-09 14:29: 24 Yes 25mg 25 mg, Oral, Q6HPRN, Starting on Fri08/22/23 at 0829, Until Discontinu ed, Routine, Nausea and Vomiting (N/V) [facility] diphenhydrA MINE (BENADRYL) tablet 25 mg 2022-09 03:00: 00 08-22 03:19 :00 No 25mg 25 mg, Oral, ONCE, 1 dose, On Fri08/21/23 at 2100, Routine [facility] ferrous sulfate 325 mg (65 mg iron) tablet 2022-09 00:00: 00 09-26 00:00 :00 No [id number] 325mg Take 1 tablet by mouth in the morning. [facility] cyclobenzap rine (FLEXERIL) tablet 10 mg 2022-09 22:15: 00 08-21 22:06 :00 No 10mg 10 mg, Oral, ONCE NOW, 1 dose, On Fri08/21/23 at 1615, Routine [facility] terbutaline (BRETHINE) injection 0.25 mg 2022-09 19:45: 00 08-21 19:08 :00 No .25mg 0.25 mg, Subcutaneo us, ONCE, 1 dose, On Fri08/21/23 at 1345, Routine [facility] lactated ringers IV infusion 1,000 mL 2022-09 18:00: 00 08-21 19:10 :00 No 1000mL at 999 mL/hr, 1,000 mL, IV Infusion, ONCE, 1 dose, On Fri08/21/23 at 1200, Routine [facility] acetaminoph en (TYLENOL) tablet 1,000 mg 2022-09 17:00: 00 08-21 16:12 :00 No 1000mg 1,000 mg, Oral, ONCE, 1 dose, On Fri08/21/23 at 1100, Routine [facility] ferrous sulfate tablet 325 mg 2022-09 15:00: 00 Yes 325mg 325 mg, Oral, DAILY, First dose on Fri08/21/23 at 0900, Until Discontinu ed, Routine [facility] SERTraline (ZOLOFT) tablet 100 mg 2022-09 15:00: 00 Yes 100mg 100 mg, Oral, DAILY, First dose on Fri08/21/23 at 0900, Until Discontinu ed, Routine [facility] diphenhydrA MINE (BENADRYL) tablet 25 mg 2022-09 09:16: 00 08-21 09:24 :00 No 25mg 25 mg, Oral, ONCE, 1 dose, On Fri08/21/23 at 0330, Routine [facility] fluconazole (DIFLUCAN) tablet 150 mg 2022-09 08:00: 00 08-21 08:00 :00 No 150mg 150 mg, Oral, ONCE, 1 dose, On Fri08/21/23 at 0200, ABHAY
Re ason for Anti-Infec tive: Documented Infection< br>Documen refugio Infection Site: Pelvic
Duration of Therapy: 7 days [facility] alum-mag hydroxide-s imeth (MAG-AL PLUS) 200-200-20 mg/5 mL suspension 30 mL 2022-09 07:05: 45 Yes 30mL 30 mL, Oral, Q6HPRN, Starting on Fri08/21/23 at 0105, Until Discontinu ed, Routine, Indigestio n [facility] docusate (COLACE) capsule 200 mg 2022-09 07:05: 45 Yes 200mg 200 mg, Oral, QHSPRN, Starting on Fri08/21/23 at 0105, Until Discontinu ed, Routine, Constipati on [facility] magnesium hydroxide (MILK OF MAGNESIA) 400 mg/5 mL suspension 30 mL 2022-09 07:05: 45 Yes 30mL 30 mL, Oral, QDAILYPRN, Starting on Fri08/21/23 at 0105, Until Discontinu ed, Routine, Constipati on [facility] ondansetron (ZOFRAN (PF)) injection 4 mg 2022-09 06:45: 00 08-21 06:58 :00 No 4mg 4 mg, Slow IV Push, ONCE, On Fri08/21/23 at 0045, For 1 dose
Do ses of ondansetro n 16 mg and above need to be administer ed via IV piggyback. For Dose >=24mg ECG monitoring is advisable.
[facility] acetaminoph en (TYLENOL) tablet 1,000 mg 2022-09 06:45: 00 08-21 06:58 :00 No 1000mg 1,000 mg, Oral, ONCE, 1 dose, On Fri08/21/23 at 0045, Routine [facility] FENTanyl PF (SUBLIMAZE (PF)) injection 100 mcg 2022-09 02:15: 00 08-21 01:26 :00 No 100ug 100 mcg, Slow IV Push, ONCE, 1 dose, On Fri08/20/23 at 2015, Routine [facility] betamethaso ne acet,sod phos (CELESTONE SOLUSPAN) 6 mg/mL injection 12 mg 2022-09 01:45: 00 08-22 01:34 :00 No 12mg 12 mg, Intramuscu lar, Q24H, 2 doses, First dose on Fri08/20/23 at 1945, Last dose on Fri08/21/23 at 1945, Routine [facility] D5W 0.9% NaCl (NS) IV infusion 1,000 mL 2022-09 23:45: 00 08-21 19:39 :48 No 1000mL at 125 mL/hr, 1,000 mL, IV Infusion, CONTINUOUS , Starting on Fri08/20/23 at 1745, Until Fri08/21/23 at 1339, Routine [facility] SERTraline 100 mg tablet 2022-09 00:00: 00 09-11 00:00 :00 No [id number] 100mg Take 1 tablet by mouth in the morning. [facility] Nitrofurant oin&Nit. Macrocryst (MACROBID) 100 mg capsule 2022-09 00:00: 00 08-12 05:59 :00 No [id number] 100mg Take 1 capsule by mouth in the morning and 1 capsule in the evening. Do all this for 7 days. [facility] acetaminoph en (TYLENOL) tablet 650 mg 2022-09 10:00: 00 07-29 09:53 :00 No 650mg 650 mg, Oral, ONCE, 1 dose, On Fri07/29/23 at 0400, Routine [facility] SERTraline 100 mg tablet 05-21 00:00: 00 08-04 00:00 :00 No [id number] 109 100mg Take 1 tablet by mouth in the morning. [facility] ondansetron (ZOFRAN (PF)) injection 4 mg 04-18 20:45: 00 04-18 20:21 :00 No 4mg 4 mg, Slow IV Push, ONCE, On Fri04/18/23 at 1545, For 1 dose
Do ses of ondansetro n 16 mg and above need to be administer ed via IV piggyback. For Dose >=24mg ECG monitoring is advisable.
[facility] NaCl 0.9% (NS) bolus infusion 1,000 mL 04-18 20:30: 00 04-18 19:32 :00 No 1000mL at 999 mL/hr, 1,000 mL, IV Infusion, ONCE, 1 dose, On Fri04/18/23 at 1530, STAT [facility] NaCl 0.9% (NS) bolus infusion 1,000 mL 04-18 19:15: 00 04-18 18:27 :00 No 1000mL at 999 mL/hr, 1,000 mL, IV Infusion, ONCE, 1 dose, On Fri04/18/23 at 1415, STAT [facility] metroNIDAZO LE (FLAGYL) 500 mg tablet 04-18 00:00: 00 08-04 00:00 :00 No [id number] 500mg Take 1 tablet by mouth every 12 (twelve) hours. [facility] fluconazole (DIFLUCAN) 150 mg tablet 04-07 00:00: 00 04-08 04:59 :00 No [id number] 150mg Take 1 tablet by mouth once now for 1 dose. [facility] proMETHazin e 25 mg tablet 04-03 00:00: 00 09-26 00:00 :00 No [id number] 25mg Take 1 tablet by mouth every 4 (four) hours as needed for Nausea and Vomiting (N/V). [facility] SERTraline (ZOLOFT) 50 mg tablet 04-03 00:00: 00 05-08 04:59 :00 No [id number] 109 Take 1 tablet by mouth daily for 4 days, THEN 2 tablets daily for 30 days. [facility] vit 33-iron-fol ic-dha (SELECT-OB + DHA) 29 mg iron-1 mg -250 mg combo pack 03-11 00:00: 00 Yes [id number] 1{packe t} Take 1 Packet by mouth in the morning. [facility] vit 33-iron-fol ic-dha (SELECT-OB + DHA) 29 mg iron-1 mg -250 mg combo pack 03-11 00:00: 00 09-26 00:00 :00 No [id number] 1{packe t} Take 1 Packet by mouth in the morning. [facility] proMETHazin e 25 mg tablet 02-18 00:00: 00 04-03 00:00 :00 No [id number] 25mg Take 1 tablet by mouth every 4 (four) hours as needed for Nausea and Vomiting (N/V). [facility] metroNIDAZO LE 500 mg tablet 02-14 00:00: 00 02-15 04:59 :00 No [id number] 2000mg Take 4 tablets by mouth once now for 1 dose. [facility] ondansetron (ZOFRAN (PF)) injection 4 mg 01-17 04:00: 00 01-17 03:11 :00 No 4mg 4 mg, Slow IV Push, ONCE, 1 dose, On Fri01/16/22 at 2300, ABHAY [facility] NaCl 0.9% (NS) bolus infusion 1,000 mL 01-17 04:00: 00 01-17 03:52 :00 No 1000mL at 999 mL/hr, 1,000 mL, IV Infusion, ONCE, 1 dose, On Fri01/16/22 at 2300, ABHAY [facility] ondansetron 4 mg disintegrat ing tablet 01-16 00:00: 04-03 00:00 :00 No [id number] 4mg Take 1 tablet by mouth every 8 (eight) hours as needed for Nausea and Vomiting (N/V). [facility] azithromyci n 250 mg tablet 12-17 00:00: 02-11 00:00 :00 No [id number] 250mg Take 1 tablet by mouth daily. Take 500 mg day 1, then 250 mg days 2 to 5. [facility] Nitrofurant oin&Nit. Macrocryst 100 mg capsule 05-04 00:00: 00 05-12 04:59 :00 No [id number] 100mg Take 1 capsule by mouth 2 (two) times daily for 7 days. [facility] metroNIDAZO LE 500 mg tablet 04-30 00:00: 00 05-04 00:00 :00 No [id number] 500mg Take 1 tablet by mouth every 12 (twelve) hours. [facility] fluconazole (DIFLUCAN) 200 mg tablet 04-29 00:00: 00 05-04 00:00 :00 No [id number] 200mg Take 1 tablet by mouth daily. [facility] [id number]-wfte, carb,glu-FA -dss-dha (CITRANATAL DHA, ALGAL OIL,) 27 mg iron-1 mg -50 mg-250 mg Cmpk 15 00:00: 00 Yes [id number] 9106 Take 1 TAB-CAP/M2 by mouth daily. [facility] Immunizations Ordered Immunization Name Filled Immunization Name Date Status Comments Source SARS-COV-2 COVID-19 VACCINE - (MODERNA) 2021-11-01 00:00:00 Completed [facility] SARS-COV-2 COVID-19 VACCINE - (MODERNA) 2021-11-01 00:00:00 Completed [facility] SARS-COV-2 COVID-19 VACCINE - (MODERNA) 2021-11-01 00:00:00 Completed [facility] SARS-COV-2 COVID-19 VACCINE - (MODERNA) 2021-11-01 00:00:00 Completed [facility] SARS-COV-2 COVID-19 VACCINE - (MODERNA) 2021-11-01 00:00:00 Completed [facility] SARS-COV-2 COVID-19 VACCINE - (MODERNA) 2021-11-01 00:00:00 Completed [facility] SARS-COV-2 COVID-19 VACCINE - (MODERNA) 2021-11-01 00:00:00 Completed [facility] SARS-COV-2 COVID-19 VACCINE - (MODERNA) 2021-11-01 00:00:00 Completed [facility] SARS-COV-2 COVID-19 VACCINE - (MODERNA) 2021-11-01 00:00:00 Completed [facility] SARS-COV-2 COVID-19 VACCINE - (MODERNA) 2021-11-01 00:00:00 Completed [facility] SARS-COV-2 COVID-19 VACCINE - (MODERNA) 2021-11-01 00:00:00 Completed [facility] SARS-COV-2 COVID-19 VACCINE - (MODERNA) 2021-11-01 00:00:00 Completed [facility] SARS-COV-2 COVID-19 VACCINE - (MODERNA) 2021-11-01 00:00:00 Completed [facility] SARS-COV-2 COVID-19 VACCINE - (MODERNA) 2021-11-01 00:00:00 Completed [facility] SARS-COV-2 COVID-19 VACCINE - (MODERNA) 2021-11-01 00:00:00 Completed [facility] SARS-COV-2 COVID-19 VACCINE - (MODERNA) 2021-11-01 00:00:00 Completed [facility] SARS-COV-2 COVID-19 VACCINE - (MODERNA) 2021-11-01 00:00:00 Completed [facility] SARS-COV-2 COVID-19 VACCINE - (MODERNA) 2021-11-01 00:00:00 Completed [facility] SARS-COV-2 COVID-19 VACCINE - (MODERNA) 2021-11-01 00:00:00 Completed [facility] SARS-COV-2 COVID-19 VACCINE - (MODERNA) 2021-11-01 00:00:00 Completed [facility] SARS-COV-2 COVID-19 VACCINE - (MODERNA) 2021-11-01 00:00:00 Completed [facility] SARS-COV-2 COVID-19 VACCINE - (MODERNA) 2021-06-08 00:00:00 Completed [facility] SARS-COV-2 COVID-19 VACCINE - (MODERNA) 2021-06-08 00:00:00 Completed [facility] SARS-COV-2 COVID-19 VACCINE - (MODERNA) 2021-06-08 00:00:00 Completed [facility] SARS-COV-2 COVID-19 VACCINE - (MODERNA) 2021-06-08 00:00:00 Completed [facility] SARS-COV-2 COVID-19 VACCINE - (MODERNA) 2021-06-08 00:00:00 Completed [facility] SARS-COV-2 COVID-19 VACCINE - (MODERNA) 2021-06-08 00:00:00 Completed [facility] SARS-COV-2 COVID-19 VACCINE - (MODERNA) 2021-06-08 00:00:00 Completed [facility] SARS-COV-2 COVID-19 VACCINE - (MODERNA) 2021-06-08 00:00:00 Completed [facility] SARS-COV-2 COVID-19 VACCINE - (MODERNA) 2021-06-08 00:00:00 Completed [facility] SARS-COV-2 COVID-19 VACCINE - (MODERNA) 2021-06-08 00:00:00 Completed [facility] SARS-COV-2 COVID-19 VACCINE - (MODERNA) 2021-06-08 00:00:00 Completed [facility] SARS-COV-2 COVID-19 VACCINE - (MODERNA) 2021-06-08 00:00:00 Completed [facility] SARS-COV-2 COVID-19 VACCINE - (MODERNA) 2021-06-08 00:00:00 Completed [facility] SARS-COV-2 COVID-19 VACCINE - (MODERNA) 2021-06-08 00:00:00 Completed [facility] SARS-COV-2 COVID-19 VACCINE - (MODERNA) 2021-06-08 00:00:00 Completed [facility] SARS-COV-2 COVID-19 VACCINE - (MODERNA) 2021-06-08 00:00:00 Completed [facility] SARS-COV-2 COVID-19 VACCINE - (MODERNA) 2021-06-08 00:00:00 Completed [facility] SARS-COV-2 COVID-19 VACCINE - (MODERNA) 2021-06-08 00:00:00 Completed [facility] SARS-COV-2 COVID-19 VACCINE - (MODERNA) 2021-06-08 00:00:00 Completed [facility] SARS-COV-2 COVID-19 VACCINE - (MODERNA) 2021-06-08 00:00:00 Completed [facility] SARS-COV-2 COVID-19 VACCINE - (MODERNA) 2021-06-08 00:00:00 Completed [facility] Influenza Virus Vaccine Quad .5 mL IM 6+ MO 2019-06-29 00:00:00 Completed [facility] Influenza Virus Vaccine Quad .5 mL IM 6+ MO 2019-06-29 00:00:00 Completed [facility] Influenza Virus Vaccine Quad .5 mL IM 6+ MO 2019-06-29 00:00:00 Completed [facility] Influenza Virus Vaccine Quad .5 mL IM 6+ MO 2019-06-29 00:00:00 Completed [facility] Influenza Virus Vaccine Quad .5 mL IM 6+ MO (FLUZONE/FLULAVAL/FL UARIX) 2019-06-29 00:00:00 Completed [facility] Influenza Virus Vaccine Quad .5 mL IM 6+ MO (FLUZONE/FLULAVAL/FL UARIX) 2019-06-29 00:00:00 Completed [facility] Influenza Virus Vaccine Quad .5 mL IM 6+ MO (FLUZONE/FLULAVAL/FL UARIX) 2019-06-29 00:00:00 Completed [facility] Influenza Virus Vaccine Quad .5 mL IM 6+ MO (FLUZONE/FLULAVAL/FL UARIX) 2019-06-29 00:00:00 Completed [facility] Influenza Virus Vaccine Quad .5 mL IM 6+ MO 2019-06-29 00:00:00 Completed [facility] Influenza Virus Vaccine Quad .5 mL IM 6+ MO 2019-06-29 00:00:00 Completed [facility] Influenza Virus Vaccine Quad .5 mL IM 6+ MO 2019-06-29 00:00:00 Completed [facility] Influenza Virus Vaccine Quad .5 mL IM 6+ MO 2019-06-29 00:00:00 Completed [facility] Influenza Virus Vaccine Quad .5 mL IM 6+ MO 2019-06-29 00:00:00 Completed [facility] Influenza Virus Vaccine Quad .5 mL IM 6+ MO 2019-06-29 00:00:00 Completed [facility] Influenza Virus Vaccine Quad .5 mL IM 6+ MO 2019-06-29 00:00:00 Completed [facility] Influenza Virus Vaccine Quad .5 mL IM 6+ MO 2019-06-29 00:00:00 Completed [facility] Influenza Virus Vaccine Quad .5 mL IM 6+ MO 2019-06-29 00:00:00 Completed [facility] Influenza Virus Vaccine Quad .5 mL IM 6+ MO 2019-06-29 00:00:00 Completed [facility] Influenza Virus Vaccine Quad .5 mL IM 6+ MO 2019-06-29 00:00:00 Completed [facility] Influenza Virus Vaccine Quad .5 mL IM 6+ MO 2019-06-29 00:00:00 Completed [facility] Influenza Virus Vaccine Quad .5 mL IM 6+ MO 2019-06-29 00:00:00 Completed [facility] Influenza Virus Vaccine Quad .5 mL IM 6+ MO 2019-06-29 00:00:00 Completed [facility] Influenza Virus Vaccine Quad .5 mL IM 6+ MO 2019-06-29 00:00:00 Completed [facility] Influenza Virus Vaccine Quad .5 mL IM 6+ MO 2019-06-29 00:00:00 Completed [facility] TDAP (ADACEL) VACCINE 2019-05-27 00:00:00 Completed [facility] TDAP (ADACEL) VACCINE 2019-05-27 00:00:00 Completed [facility] TDAP (ADACEL) VACCINE 2019-05-27 00:00:00 Completed [facility] TDAP (ADACEL) VACCINE 2019-05-27 00:00:00 Completed [facility] TDAP (ADACEL) VACCINE 2019-05-27 00:00:00 Completed [facility] TDAP (ADACEL) VACCINE 2019-05-27 00:00:00 Completed [facility] TDAP (ADACEL) VACCINE 2019-05-27 00:00:00 Completed [facility] TDAP (ADACEL) VACCINE 2019-05-27 00:00:00 Completed [facility] TDAP (ADACEL) VACCINE 2019-05-27 00:00:00 Completed [facility] TDAP (ADACEL) VACCINE 2019-05-27 00:00:00 Completed [facility] TDAP (ADACEL) VACCINE 2019-05-27 00:00:00 Completed [facility] TDAP (ADACEL) VACCINE 2019-05-27 00:00:00 Completed [facility] TDAP (ADACEL) VACCINE 2019-05-27 00:00:00 Completed [facility] TDAP (ADACEL) VACCINE 2019-05-27 00:00:00 Completed [facility] TDAP (ADACEL) VACCINE 2019-05-27 00:00:00 Completed [facility] TDAP (ADACEL) VACCINE 2019-05-27 00:00:00 Completed [facility] TDAP (ADACEL) VACCINE 2019-05-27 00:00:00 Completed [facility] TDAP (ADACEL) VACCINE 2019-05-27 00:00:00 Completed [facility] TDAP (ADACEL) VACCINE 2019-05-27 00:00:00 Completed [facility] TDAP (ADACEL) VACCINE 2019-05-27 00:00:00 Completed [facility] TDAP (ADACEL) VACCINE 2019-05-27 00:00:00 Completed [facility] TDAP (ADACEL) VACCINE 2019-05-27 00:00:00 Completed [facility] TDAP (ADACEL) VACCINE 2019-05-27 00:00:00 Completed [facility] TDAP (ADACEL) VACCINE 2019-05-27 00:00:00 Completed [facility] TDAP (ADACEL) VACCINE 2019-05-27 00:00:00 Completed [facility] TDAP (ADACEL) VACCINE 2019-04-01 00:00:00 Completed [facility] TDAP (ADACEL) VACCINE 2019-04-01 00:00:00 Completed [facility] TDAP (ADACEL) VACCINE 2019-04-01 00:00:00 Completed [facility] TDAP (ADACEL) VACCINE 2019-04-01 00:00:00 Completed [facility] TDAP (ADACEL) VACCINE 2019-04-01 00:00:00 Completed [facility] TDAP (ADACEL) VACCINE 2019-04-01 00:00:00 Completed [facility] TDAP (ADACEL) VACCINE 2019-04-01 00:00:00 Completed [facility] TDAP (ADACEL) VACCINE 2019-04-01 00:00:00 Completed [facility] TDAP (ADACEL) VACCINE 2019-04-01 00:00:00 Completed [facility] TDAP (ADACEL) VACCINE 2019-04-01 00:00:00 Completed [facility] TDAP (ADACEL) VACCINE 2019-04-01 00:00:00 Completed [facility] TDAP (ADACEL) VACCINE 2019-04-01 00:00:00 Completed [facility] TDAP (ADACEL) VACCINE 2019-04-01 00:00:00 Completed [facility] TDAP (ADACEL) VACCINE 2019-04-01 00:00:00 Completed [facility] TDAP (ADACEL) VACCINE 2019-04-01 00:00:00 Completed [facility] TDAP (ADACEL) VACCINE 2019-04-01 00:00:00 Completed [facility] TDAP (ADACEL) VACCINE 2019-04-01 00:00:00 Completed [facility] TDAP (ADACEL) VACCINE 2019-04-01 00:00:00 Completed [facility] TDAP (ADACEL) VACCINE 2019-04-01 00:00:00 Completed [facility] TDAP (ADACEL) VACCINE 2019-04-01 00:00:00 Completed [facility] TDAP (ADACEL) VACCINE 2019-04-01 00:00:00 Completed [facility] TDAP (ADACEL) VACCINE 2019-04-01 00:00:00 Completed [facility] TDAP (ADACEL) VACCINE 2019-04-01 00:00:00 Completed [facility] TDAP (ADACEL) VACCINE 2019-04-01 00:00:00 Completed [facility] TDAP (ADACEL) VACCINE 2019-04-01 00:00:00 Completed [facility] TDAP (ADACEL) VACCINE 2019-04-01 00:00:00 Completed [facility] TDAP (ADACEL) VACCINE 2019-04-01 00:00:00 Completed [facility] TDAP (ADACEL) VACCINE 2019-04-01 00:00:00 Completed [facility] TDAP (ADACEL) VACCINE 2019-04-01 00:00:00 Completed [facility] TDAP (ADACEL) VACCINE 2019-04-01 00:00:00 Completed [facility] TDAP (ADACEL) VACCINE 2019-04-01 00:00:00 Completed [facility] TDAP (ADACEL) VACCINE 2019-04-01 00:00:00 Completed [facility] TDAP (ADACEL) VACCINE 2019-04-01 00:00:00 Completed [facility] TDAP (ADACEL) VACCINE 2019-04-01 00:00:00 Completed [facility] TDAP (ADACEL) VACCINE 2019-04-01 00:00:00 Completed [facility] TDAP (ADACEL) VACCINE 2019-04-01 00:00:00 Completed [facility] TDAP (ADACEL) VACCINE 2019-04-01 00:00:00 Completed [facility] Influenza Virus Vaccine Quad .5 mL IM 6+ MO 2019-01-04 00:00:00 Completed [facility] Influenza Virus Vaccine Quad .5 mL IM 6+ MO 2019-01-04 00:00:00 Completed [facility] Influenza Virus Vaccine Quad .5 mL IM 6+ MO 2019-01-04 00:00:00 Completed [facility] Influenza Virus Vaccine Quad .5 mL IM 6+ MO 2019-01-04 00:00:00 Completed [facility] Influenza Virus Vaccine Quad .5 mL IM 6+ MO 2019-01-04 00:00:00 Completed [facility] Influenza Virus Vaccine Quad .5 mL IM 6+ MO (FLUZONE/FLULAVAL/FL UARIX) 2019-01-04 00:00:00 Completed [facility] Influenza Virus Vaccine Quad .5 mL IM 6+ MO (FLUZONE/FLULAVAL/FL UARIX) 2019-01-04 00:00:00 Completed [facility] Influenza Virus Vaccine Quad .5 mL IM 6+ MO (FLUZONE/FLULAVAL/FL UARIX) 2019-01-04 00:00:00 Completed [facility] Influenza Virus Vaccine Quad .5 mL IM 6+ MO (FLUZONE/FLULAVAL/FL UARIX) 2019-01-04 00:00:00 Completed [facility] Influenza Virus Vaccine Quad .5 mL IM 6+ MO 2019-01-04 00:00:00 Completed [facility] Influenza Virus Vaccine Quad .5 mL IM 6+ MO 2019-01-04 00:00:00 Completed [facility] Influenza Virus Vaccine Quad .5 mL IM 6+ MO 2019-01-04 00:00:00 Completed [facility] Influenza Virus Vaccine Quad .5 mL IM 6+ MO 2019-01-04 00:00:00 Completed [facility] Influenza Virus Vaccine Quad .5 mL IM 6+ MO 2019-01-04 00:00:00 Completed [facility] Influenza Virus Vaccine Quad .5 mL IM 6+ MO 2019-01-04 00:00:00 Completed [facility] Influenza Virus Vaccine Quad .5 mL IM 6+ MO 2019-01-04 00:00:00 Completed [facility] Influenza Virus Vaccine Quad .5 mL IM 6+ MO 2019-01-04 00:00:00 Completed [facility] Influenza Virus Vaccine Quad .5 mL IM 6+ MO 2019-01-04 00:00:00 Completed [facility] Influenza Virus Vaccine Quad .5 mL IM 6+ MO 2019-01-04 00:00:00 Completed [facility] Influenza Virus Vaccine Quad .5 mL IM 6+ MO 2019-01-04 00:00:00 Completed [facility] Influenza Virus Vaccine Quad .5 mL IM 6+ MO 2019-01-04 00:00:00 Completed [facility] Influenza Virus Vaccine Quad .5 mL IM 6+ MO 2019-01-04 00:00:00 Completed [facility] Influenza Virus Vaccine Quad .5 mL IM 6+ MO 2019-01-04 00:00:00 Completed [facility] Influenza Virus Vaccine Quad .5 mL IM 6+ MO 2019-01-04 00:00:00 Completed [facility] Influenza Virus Vaccine Quad .5 mL IM 6+ MO 2019-01-04 00:00:00 Completed [facility] Influenza Virus Vaccine Quad .5 mL IM 6+ MO 2019-01-04 00:00:00 Completed [facility] Influenza Virus Vaccine Quad .5 mL IM 6+ MO 2019-01-04 00:00:00 Completed [facility] Influenza Virus Vaccine Quad .5 mL IM 6+ MO 2019-01-04 00:00:00 Completed [facility] Influenza Virus Vaccine Quad .5 mL IM 6+ MO 2019-01-04 00:00:00 Completed [facility] Influenza Virus Vaccine Quad .5 mL IM 6+ MO 2019-01-04 00:00:00 Completed [facility] Influenza Virus Vaccine Quad .5 mL IM 6+ MO 2019-01-04 00:00:00 Completed [facility] Influenza Virus Vaccine Quad .5 mL IM 6+ MO 2019-01-04 00:00:00 Completed [facility] Influenza Virus Vaccine Quad .5 mL IM 6+ MO 2019-01-04 00:00:00 Completed [facility] Influenza Virus Vaccine Quad .5 mL IM 6+ MO 2019-01-04 00:00:00 Completed [facility] Influenza Virus Vaccine Quad .5 mL IM 6+ MO 2019-01-04 00:00:00 Completed [facility] Influenza Virus Vaccine Quad .5 mL IM 6+ MO 2019-01-04 00:00:00 Completed [facility] Influenza Virus Vaccine Quad .5 mL IM 6+ MO 2019-01-04 00:00:00 Completed [facility] HPV 2015-04-13 00:00:00 Completed [facility] Meningococcal Polysaccharide (groups A, C, Y and W-135) conjugate vaccine (MCV4P) 2015-04-13 00:00:00 Completed [facility] TDAP (ADACEL) VACCINE 2015-04-13 00:00:00 Completed [facility] HPV 2015-04-13 00:00:00 Completed [facility] Meningococcal Polysaccharide (groups A, C, Y and W-135) conjugate vaccine (MCV4P) 2015-04-13 00:00:00 Completed [facility] TDAP (ADACEL) VACCINE 2015-04-13 00:00:00 Completed [facility] HPV 2015-04-13 00:00:00 Completed [facility] HPV 2015-04-13 00:00:00 Completed [facility] Meningococcal Polysaccharide (groups A, C, Y and W-135) conjugate vaccine (MCV4P) 2015-04-13 00:00:00 Completed [facility] TDAP (ADACEL) VACCINE 2015-04-13 00:00:00 Completed [facility] Meningococcal Polysaccharide (groups A, C, Y and W-135) conjugate vaccine (MCV4P) 2015-04-13 00:00:00 Completed [facility] TDAP (ADACEL) VACCINE 2015-04-13 00:00:00 Completed [facility] HPV 2015-04-13 00:00:00 Completed [facility] Meningococcal Polysaccharide (groups A, C, Y and W-135) conjugate vaccine (MCV4P) 2015-04-13 00:00:00 Completed [facility] TDAP (ADACEL) VACCINE 2015-04-13 00:00:00 Completed [facility] HPV 2015-04-13 00:00:00 Completed [facility] Meningococcal Polysaccharide (groups A, C, Y and W-135) conjugate vaccine (MCV4P) 2015-04-13 00:00:00 Completed [facility] TDAP (ADACEL) VACCINE 2015-04-13 00:00:00 Completed [facility] HPV 2015-04-13 00:00:00 Completed [facility] Meningococcal Polysaccharide (groups A, C, Y and W-135) conjugate vaccine (MCV4P) 2015-04-13 00:00:00 Completed [facility] TDAP (ADACEL) VACCINE 2015-04-13 00:00:00 Completed [facility] HPV 2015-04-13 00:00:00 Completed [facility] Meningococcal Polysaccharide (groups A, C, Y and W-135) conjugate vaccine (MCV4P) 2015-04-13 00:00:00 Completed [facility] TDAP (ADACEL) VACCINE 2015-04-13 00:00:00 Completed [facility] HPV 2015-04-13 00:00:00 Completed [facility] Meningococcal Polysaccharide (groups A, C, Y and W-135) conjugate vaccine (MCV4P) 2015-04-13 00:00:00 Completed [facility] TDAP (ADACEL) VACCINE 2015-04-13 00:00:00 Completed [facility] HPV 2015-04-13 00:00:00 Completed [facility] Meningococcal Polysaccharide (groups A, C, Y and W-135) conjugate vaccine (MCV4P) 2015-04-13 00:00:00 Completed [facility] TDAP (ADACEL) VACCINE 2015-04-13 00:00:00 Completed [facility] HPV 2015-04-13 00:00:00 Completed [facility] Meningococcal Polysaccharide (groups A, C, Y and W-135) conjugate vaccine (MCV4P) 2015-04-13 00:00:00 Completed [facility] TDAP (ADACEL) VACCINE 2015-04-13 00:00:00 Completed [facility] HPV 2015-04-13 00:00:00 Completed [facility] Meningococcal Polysaccharide (groups A, C, Y and W-135) conjugate vaccine (MCV4P) 2015-04-13 00:00:00 Completed [facility] TDAP (ADACEL) VACCINE 2015-04-13 00:00:00 Completed [facility] HPV 2015-04-13 00:00:00 Completed [facility] Meningococcal Polysaccharide (groups A, C, Y and W-135) conjugate vaccine (MCV4P) 2015-04-13 00:00:00 Completed [facility] TDAP (ADACEL) VACCINE 2015-04-13 00:00:00 Completed [facility] HPV 2015-04-13 00:00:00 Completed [facility] Meningococcal Polysaccharide (groups A, C, Y and W-135) conjugate vaccine (MCV4P) 2015-04-13 00:00:00 Completed [facility] TDAP (ADACEL) VACCINE 2015-04-13 00:00:00 Completed [facility] HPV 2015-04-13 00:00:00 Completed [facility] Meningococcal Polysaccharide (groups A, C, Y and W-135) conjugate vaccine (MCV4P) 2015-04-13 00:00:00 Completed [facility] TDAP (ADACEL) VACCINE 2015-04-13 00:00:00 Completed [facility] HPV 2015-04-13 00:00:00 Completed [facility] Meningococcal Polysaccharide (groups A, C, Y and W-135) conjugate vaccine (MCV4P) 2015-04-13 00:00:00 Completed [facility] TDAP (ADACEL) VACCINE 2015-04-13 00:00:00 Completed [facility] HPV 2015-04-13 00:00:00 Completed [facility] Meningococcal Polysaccharide (groups A, C, Y and W-135) conjugate vaccine (MCV4P) 2015-04-13 00:00:00 Completed [facility] TDAP (ADACEL) VACCINE 2015-04-13 00:00:00 Completed [facility] HPV 2015-04-13 00:00:00 Completed [facility] Meningococcal Polysaccharide (groups A, C, Y and W-135) conjugate vaccine (MCV4P) 2015-04-13 00:00:00 Completed [facility] TDAP (ADACEL) VACCINE 2015-04-13 00:00:00 Completed [facility] HPV 2015-04-13 00:00:00 Completed [facility] Meningococcal Polysaccharide (groups A, C, Y and W-135) conjugate vaccine (MCV4P) 2015-04-13 00:00:00 Completed [facility] HPV 2015-04-13 00:00:00 Completed [facility] Meningococcal Polysaccharide (groups A, C, Y and W-135) conjugate vaccine (MCV4P) 2015-04-13 00:00:00 Completed [facility] TDAP (ADACEL) VACCINE 2015-04-13 00:00:00 Completed [facility] TDAP (ADACEL) VACCINE 2015-04-13 00:00:00 Completed [facility] HPV 2015-04-13 00:00:00 Completed [facility] Meningococcal Polysaccharide (groups A, C, Y and W-135) conjugate vaccine (MCV4P) 2015-04-13 00:00:00 Completed [facility] TDAP (ADACEL) VACCINE 2015-04-13 00:00:00 Completed [facility] HPV 2015-04-13 00:00:00 Completed [facility] Meningococcal Polysaccharide (groups A, C, Y and W-135) conjugate vaccine (MCV4P) 2015-04-13 00:00:00 Completed [facility] TDAP (ADACEL) VACCINE 2015-04-13 00:00:00 Completed [facility] HPV 2015-04-13 00:00:00 Completed [facility] Meningococcal Polysaccharide (groups A, C, Y and W-135) conjugate vaccine (MCV4P) 2015-04-13 00:00:00 Completed [facility] TDAP (ADACEL) VACCINE 2015-04-13 00:00:00 Completed [facility] HPV 2015-04-13 00:00:00 Completed [facility] Meningococcal Polysaccharide (groups A, C, Y and W-135) conjugate vaccine (MCV4P) 2015-04-13 00:00:00 Completed [facility] TDAP (ADACEL) VACCINE 2015-04-13 00:00:00 Completed [facility] HPV 2015-04-13 00:00:00 Completed [facility] Meningococcal Polysaccharide (groups A, C, Y and W-135) conjugate vaccine (MCV4P) 2015-04-13 00:00:00 Completed [facility] TDAP (ADACEL) VACCINE 2015-04-13 00:00:00 Completed [facility] HPV 2015-04-13 00:00:00 Completed [facility] Meningococcal Polysaccharide (groups A, C, Y and W-135) conjugate vaccine (MCV4P) 2015-04-13 00:00:00 Completed [facility] TDAP (ADACEL) VACCINE 2015-04-13 00:00:00 Completed [facility] HPV 2015-04-13 00:00:00 Completed [facility] Meningococcal Polysaccharide (groups A, C, Y and W-135) conjugate vaccine (MCV4P) 2015-04-13 00:00:00 Completed [facility] TDAP (ADACEL) VACCINE 2015-04-13 00:00:00 Completed [facility] HPV 2015-04-13 00:00:00 Completed [facility] Meningococcal Polysaccharide (groups A, C, Y and W-135) conjugate vaccine (MCV4P) 2015-04-13 00:00:00 Completed [facility] HPV 2015-04-13 00:00:00 Completed [facility] Meningococcal Polysaccharide (groups A, C, Y and W-135) conjugate vaccine (MCV4P) 2015-04-13 00:00:00 Completed [facility] TDAP (ADACEL) VACCINE 2015-04-13 00:00:00 Completed [facility] TDAP (ADACEL) VACCINE 2015-04-13 00:00:00 Completed [facility] HPV 2015-04-13 00:00:00 Completed [facility] Meningococcal Polysaccharide (groups A, C, Y and W-135) conjugate vaccine (MCV4P) 2015-04-13 00:00:00 Completed [facility] TDAP (ADACEL) VACCINE 2015-04-13 00:00:00 Completed [facility] HPV 2015-04-13 00:00:00 Completed [facility] Meningococcal Polysaccharide (groups A, C, Y and W-135) conjugate vaccine (MCV4P) 2015-04-13 00:00:00 Completed [facility] TDAP (ADACEL) VACCINE 2015-04-13 00:00:00 Completed [facility] HPV 2015-04-13 00:00:00 Completed [facility] Meningococcal Polysaccharide (groups A, C, Y and W-135) conjugate vaccine (MCV4P) 2015-04-13 00:00:00 Completed [facility] TDAP (ADACEL) VACCINE 2015-04-13 00:00:00 Completed [facility] HPV 2015-04-13 00:00:00 Completed [facility] Meningococcal Polysaccharide (groups A, C, Y and W-135) conjugate vaccine (MCV4P) 2015-04-13 00:00:00 Completed [facility] TDAP (ADACEL) VACCINE 2015-04-13 00:00:00 Completed [facility] HPV 2015-04-13 00:00:00 Completed [facility] Meningococcal Polysaccharide (groups A, C, Y and W-135) conjugate vaccine (MCV4P) 2015-04-13 00:00:00 Completed [facility] TDAP (ADACEL) VACCINE 2015-04-13 00:00:00 Completed [facility] HPV 2015-04-13 00:00:00 Completed [facility] Meningococcal Polysaccharide (groups A, C, Y and W-135) conjugate vaccine (MCV4P) 2015-04-13 00:00:00 Completed [facility] TDAP (ADACEL) VACCINE 2015-04-13 00:00:00 Completed [facility] HPV 2015-04-13 00:00:00 Completed [facility] Meningococcal Polysaccharide (groups A, C, Y and W-135) conjugate vaccine (MCV4P) 2015-04-13 00:00:00 Completed [facility] TDAP (ADACEL) VACCINE 2015-04-13 00:00:00 Completed [facility] HPV 2015-04-13 00:00:00 Completed [facility] Meningococcal Polysaccharide (groups A, C, Y and W-135) conjugate vaccine (MCV4P) 2015-04-13 00:00:00 Completed [facility] TDAP (ADACEL) VACCINE 2015-04-13 00:00:00 Completed [facility] HPV 2012-06-29 00:00:00 Completed [facility] HPV 2012-06-29 00:00:00 Completed [facility] HPV 2012-06-29 00:00:00 Completed [facility] HPV 2012-06-29 00:00:00 Completed [facility] HPV 2012-06-29 00:00:00 Completed [facility] HPV 2012-06-29 00:00:00 Completed [facility] HPV 2012-06-29 00:00:00 Completed [facility] HPV 2012-06-29 00:00:00 Completed [facility] HPV 2012-06-29 00:00:00 Completed [facility] HPV 2012-06-29 00:00:00 Completed [facility] HPV 2012-06-29 00:00:00 Completed [facility] HPV 2012-06-29 00:00:00 Completed [facility] HPV 2012-06-29 00:00:00 Completed [facility] HPV 2012-06-29 00:00:00 Completed [facility] HPV 2012-06-29 00:00:00 Completed [facility] HPV 2012-06-29 00:00:00 Completed [facility] HPV 2012-06-29 00:00:00 Completed [facility] HPV 2012-06-29 00:00:00 Completed [facility] HPV 2012-06-29 00:00:00 Completed [facility] HPV 2012-06-29 00:00:00 Completed [facility] HPV 2012-06-29 00:00:00 Completed [facility] HPV 2012-06-29 00:00:00 Completed [facility] HPV 2012-06-29 00:00:00 Completed [facility] HPV 2012-06-29 00:00:00 Completed [facility] Tetanus/Diptheria 2009-12-12 00:00:00 Completed [facility] Meningococcal Polysaccharide (groups A, C, Y and W-135) conjugate vaccine (MCV4P) 2009-12-12 00:00:00 Completed [facility] Varicella (varivax)(chicken pox) 2009-12-12 00:00:00 Completed [facility] HEPATITIS A 2009-12-12 00:00:00 Completed [facility] Tetanus/Diptheria 2009-12-12 00:00:00 Completed [facility] Meningococcal Polysaccharide (groups A, C, Y and W-135) conjugate vaccine (MCV4P) 2009-12-12 00:00:00 Completed [facility] Varicella (varivax)(chicken pox) 2009-12-12 00:00:00 Completed [facility] HEPATITIS A 2009-12-12 00:00:00 Completed [facility] Tetanus/Diptheria 2009-12-12 00:00:00 Completed [facility] Meningococcal Polysaccharide (groups A, C, Y and W-135) conjugate vaccine (MCV4P) 2009-12-12 00:00:00 Completed [facility] Varicella (varivax)(chicken pox) 2009-12-12 00:00:00 Completed [facility] HEPATITIS A 2009-12-12 00:00:00 Completed [facility] Tetanus/Diptheria 2009-12-12 00:00:00 Completed [facility] Meningococcal Polysaccharide (groups A, C, Y and W-135) conjugate vaccine (MCV4P) 2009-12-12 00:00:00 Completed [facility] Varicella (varivax)(chicken pox) 2009-12-12 00:00:00 Completed [facility] HEPATITIS A 2009-12-12 00:00:00 Completed [facility] Tetanus/Diptheria 2009-12-12 00:00:00 Completed [facility] Meningococcal Polysaccharide (groups A, C, Y and W-135) conjugate vaccine (MCV4P) 2009-12-12 00:00:00 Completed [facility] Varicella (varivax)(chicken pox) 2009-12-12 00:00:00 Completed [facility] HEPATITIS A 2009-12-12 00:00:00 Completed [facility] Tetanus/Diptheria 2009-12-12 00:00:00 Completed [facility] Meningococcal Polysaccharide (groups A, C, Y and W-135) conjugate vaccine (MCV4P) 2009-12-12 00:00:00 Completed [facility] Varicella (varivax)(chicken pox) 2009-12-12 00:00:00 Completed [facility] HEPATITIS A 2009-12-12 00:00:00 Completed [facility] Tetanus/Diptheria 2009-12-12 00:00:00 Completed [facility] Meningococcal Polysaccharide (groups A, C, Y and W-135) conjugate vaccine (MCV4P) 2009-12-12 00:00:00 Completed [facility] Varicella (varivax)(chicken pox) 2009-12-12 00:00:00 Completed [facility] HEPATITIS A 2009-12-12 00:00:00 Completed [facility] Tetanus/Diptheria 2009-12-12 00:00:00 Completed [facility] Meningococcal Polysaccharide (groups A, C, Y and W-135) conjugate vaccine (MCV4P) 2009-12-12 00:00:00 Completed [facility] Varicella (varivax)(chicken pox) 2009-12-12 00:00:00 Completed [facility] HEPATITIS A 2009-12-12 00:00:00 Completed [facility] Tetanus/Diptheria 2009-12-12 00:00:00 Completed [facility] Meningococcal Polysaccharide (groups A, C, Y and W-135) conjugate vaccine (MCV4P) 2009-12-12 00:00:00 Completed [facility] Varicella (varivax)(chicken pox) 2009-12-12 00:00:00 Completed [facility] Meningococcal Polysaccharide (groups A, C, Y and W-135) conjugate vaccine (MCV4P) 2009-12-12 00:00:00 Completed [facility] Varicella (varivax)(chicken pox) 2009-12-12 00:00:00 Completed [facility] Meningococcal Polysaccharide (groups A, C, Y and W-135) conjugate vaccine (MCV4P) 2009-12-12 00:00:00 Completed [facility] Varicella (varivax)(chicken pox) 2009-12-12 00:00:00 Completed [facility] Meningococcal Polysaccharide (groups A, C, Y and W-135) conjugate vaccine (MCV4P) 2009-12-12 00:00:00 Completed [facility] Varicella (varivax)(chicken pox) 2009-12-12 00:00:00 Completed [facility] HEPATITIS A 2009-12-12 00:00:00 Completed [facility] Tetanus/Diptheria 2009-12-12 00:00:00 Completed [facility] Meningococcal Polysaccharide (groups A, C, Y and W-135) conjugate vaccine (MCV4P) 2009-12-12 00:00:00 Completed [facility] Varicella (varivax)(chicken pox) 2009-12-12 00:00:00 Completed [facility] HEPATITIS A 2009-12-12 00:00:00 Completed [facility] Tetanus/Diptheria 2009-12-12 00:00:00 Completed [facility] Meningococcal Polysaccharide (groups A, C, Y and W-135) conjugate vaccine (MCV4P) 2009-12-12 00:00:00 Completed [facility] Varicella (varivax)(chicken pox) 2009-12-12 00:00:00 Completed [facility] HEPATITIS A 2009-12-12 00:00:00 Completed [facility] Tetanus/Diptheria 2009-12-12 00:00:00 Completed [facility] Meningococcal Polysaccharide (groups A, C, Y and W-135) conjugate vaccine (MCV4P) 2009-12-12 00:00:00 Completed [facility] Varicella (varivax)(chicken pox) 2009-12-12 00:00:00 Completed [facility] HEPATITIS A 2009-12-12 00:00:00 Completed [facility] Tetanus/Diptheria 2009-12-12 00:00:00 Completed [facility] Meningococcal Polysaccharide (groups A, C, Y and W-135) conjugate vaccine (MCV4P) 2009-12-12 00:00:00 Completed [facility] Varicella (varivax)(chicken pox) 2009-12-12 00:00:00 Completed [facility] HEPATITIS A 2009-12-12 00:00:00 Completed [facility] Tetanus/Diptheria 2009-12-12 00:00:00 Completed [facility] Meningococcal Polysaccharide (groups A, C, Y and W-135) conjugate vaccine (MCV4P) 2009-12-12 00:00:00 Completed [facility] Varicella (varivax)(chicken pox) 2009-12-12 00:00:00 Completed [facility] HEPATITIS A 2009-12-12 00:00:00 Completed [facility] Tetanus/Diptheria 2009-12-12 00:00:00 Completed [facility] Meningococcal Polysaccharide (groups A, C, Y and W-135) conjugate vaccine (MCV4P) 2009-12-12 00:00:00 Completed [facility] Varicella (varivax)(chicken pox) 2009-12-12 00:00:00 Completed [facility] HEPATITIS A 2009-12-12 00:00:00 Completed [facility] Tetanus/Diptheria 2009-12-12 00:00:00 Completed [facility] Meningococcal Polysaccharide (groups A, C, Y and W-135) conjugate vaccine (MCV4P) 2009-12-12 00:00:00 Completed [facility] Varicella (varivax)(chicken pox) 2009-12-12 00:00:00 Completed [facility] HEPATITIS A 2009-12-12 00:00:00 Completed [facility] Tetanus/Diptheria 2009-12-12 00:00:00 Completed [facility] Meningococcal Polysaccharide (groups A, C, Y and W-135) conjugate vaccine (MCV4P) 2009-12-12 00:00:00 Completed [facility] Varicella (varivax)(chicken pox) 2009-12-12 00:00:00 Completed [facility] HEPATITIS A 2009-12-12 00:00:00 Completed [facility] Tetanus/Diptheria 2009-12-12 00:00:00 Completed [facility] Meningococcal Polysaccharide (groups A, C, Y and W-135) conjugate vaccine (MCV4P) 2009-12-12 00:00:00 Completed [facility] Varicella (varivax)(chicken pox) 2009-12-12 00:00:00 Completed [facility] HEPATITIS A 2009-12-12 00:00:00 Completed [facility] Tetanus/Diptheria 2009-12-12 00:00:00 Completed [facility] Meningococcal Polysaccharide (groups A, C, Y and W-135) conjugate vaccine (MCV4P) 2009-12-12 00:00:00 Completed [facility] Varicella (varivax)(chicken pox) 2009-12-12 00:00:00 Completed [facility] HEPATITIS A 2009-12-12 00:00:00 Completed [facility] Tetanus/Diptheria 2009-12-12 00:00:00 Completed [facility] Meningococcal Polysaccharide (groups A, C, Y and W-135) conjugate vaccine (MCV4P) 2009-12-12 00:00:00 Completed [facility] Varicella (varivax)(chicken pox) 2009-12-12 00:00:00 Completed [facility] HEPATITIS A 2009-12-12 00:00:00 Completed [facility] Tetanus/Diptheria 2009-12-12 00:00:00 Completed [facility] Meningococcal Polysaccharide (groups A, C, Y and W-135) conjugate vaccine (MCV4P) 2009-12-12 00:00:00 Completed [facility] Varicella (varivax)(chicken pox) 2009-12-12 00:00:00 Completed [facility] HEPATITIS A 2009-12-12 00:00:00 Completed [facility] DTaP, Unspecified Formulation 2003-04-28 00:00:00 Completed [facility] MMR 2003-04-28 00:00:00 Completed [facility] IPV 2003-04-28 00:00:00 Completed [facility] DTaP, Unspecified Formulation 2003-04-28 00:00:00 Completed [facility] MMR 2003-04-28 00:00:00 Completed [facility] IPV 2003-04-28 00:00:00 Completed [facility] DTaP, Unspecified Formulation 2003-04-28 00:00:00 Completed [facility] MMR 2003-04-28 00:00:00 Completed [facility] IPV 2003-04-28 00:00:00 Completed [facility] DTaP, Unspecified Formulation 2003-04-28 00:00:00 Completed [facility] MMR 2003-04-28 00:00:00 Completed [facility] IPV 2003-04-28 00:00:00 Completed [facility] DTaP, Unspecified Formulation 2003-04-28 00:00:00 Completed [facility] MMR 2003-04-28 00:00:00 Completed [facility] IPV 2003-04-28 00:00:00 Completed [facility] DTaP, Unspecified Formulation 2003-04-28 00:00:00 Completed [facility] MMR 2003-04-28 00:00:00 Completed [facility] IPV 2003-04-28 00:00:00 Completed [facility] DTaP, Unspecified Formulation 2003-04-28 00:00:00 Completed [facility] MMR 2003-04-28 00:00:00 Completed [facility] IPV 2003-04-28 00:00:00 Completed [facility] DTaP, Unspecified Formulation 2003-04-28 00:00:00 Completed [facility] MMR 2003-04-28 00:00:00 Completed [facility] IPV 2003-04-28 00:00:00 Completed [facility] DTaP, Unspecified Formulation 2003-04-28 00:00:00 Completed [facility] MMR 2003-04-28 00:00:00 Completed [facility] IPV 2003-04-28 00:00:00 Completed [facility] DTaP, Unspecified Formulation 2003-04-28 00:00:00 Completed [facility] MMR 2003-04-28 00:00:00 Completed [facility] IPV 2003-04-28 00:00:00 Completed [facility] DTaP, Unspecified Formulation 2003-04-28 00:00:00 Completed [facility] MMR 2003-04-28 00:00:00 Completed [facility] IPV 2003-04-28 00:00:00 Completed [facility] DTaP, Unspecified Formulation 2003-04-28 00:00:00 Completed [facility] MMR 2003-04-28 00:00:00 Completed [facility] IPV 2003-04-28 00:00:00 Completed [facility] DTaP, Unspecified Formulation 2003-04-28 00:00:00 Completed [facility] MMR 2003-04-28 00:00:00 Completed [facility] IPV 2003-04-28 00:00:00 Completed [facility] DTaP, Unspecified Formulation 2003-04-28 00:00:00 Completed [facility] MMR 2003-04-28 00:00:00 Completed [facility] IPV 2003-04-28 00:00:00 Completed [facility] DTaP, Unspecified Formulation 2003-04-28 00:00:00 Completed [facility] MMR 2003-04-28 00:00:00 Completed [facility] IPV 2003-04-28 00:00:00 Completed [facility] DTaP, Unspecified Formulation 2003-04-28 00:00:00 Completed [facility] MMR 2003-04-28 00:00:00 Completed [facility] IPV 2003-04-28 00:00:00 Completed [facility] DTaP, Unspecified Formulation 2003-04-28 00:00:00 Completed [facility] MMR 2003-04-28 00:00:00 Completed [facility] IPV 2003-04-28 00:00:00 Completed [facility] DTaP, Unspecified Formulation 2003-04-28 00:00:00 Completed [facility] MMR 2003-04-28 00:00:00 Completed [facility] IPV 2003-04-28 00:00:00 Completed [facility] DTaP, Unspecified Formulation 2003-04-28 00:00:00 Completed [facility] MMR 2003-04-28 00:00:00 Completed [facility] IPV 2003-04-28 00:00:00 Completed [facility] DTaP, Unspecified Formulation 2003-04-28 00:00:00 Completed [facility] MMR 2003-04-28 00:00:00 Completed [facility] IPV 2003-04-28 00:00:00 Completed [facility] DTaP, Unspecified Formulation 2003-04-28 00:00:00 Completed [facility] MMR 2003-04-28 00:00:00 Completed [facility] IPV 2003-04-28 00:00:00 Completed [facility] HIB 4 Dose Schedule 2002-11-11 00:00:00 Completed [facility] Hep B, Adol or Pedi Dosage 2002-11-11 00:00:00 Completed [facility] MMR 2002-11-11 00:00:00 Completed [facility] DTaP, Unspecified Formulation 2002-11-11 00:00:00 Completed [facility] Polio (IPV/OPV) 2002-11-11 00:00:00 Completed [facility] IPV 2002-11-11 00:00:00 Completed [facility] Varicella (varivax)(chicken pox) 2002-11-11 00:00:00 Completed [facility] DTAP 2002-11-11 00:00:00 Completed [facility] Hep B, Adol or Pedi Dosage 2002-11-11 00:00:00 Completed [facility] HIB 4 Dose Schedule 2002-11-11 00:00:00 Completed [facility] DTaP, Unspecified Formulation 2002-11-11 00:00:00 Completed [facility] Polio (IPV/OPV) 2002-11-11 00:00:00 Completed [facility] IPV 2002-11-11 00:00:00 Completed [facility] MMR 2002-11-11 00:00:00 Completed [facility] Varicella (varivax)(chicken pox) 2002-11-11 00:00:00 Completed [facility] DTaP, Unspecified Formulation 2002-11-11 00:00:00 Completed [facility] IPV 2002-11-11 00:00:00 Completed [facility] DTaP, Unspecified Formulation 2002-11-11 00:00:00 Completed [facility] IPV 2002-11-11 00:00:00 Completed [facility] DTaP, Unspecified Formulation 2002-11-11 00:00:00 Completed [facility] IPV 2002-11-11 00:00:00 Completed [facility] DTAP 2002-11-11 00:00:00 Completed [facility] HIB 4 Dose Schedule 2002-11-11 00:00:00 Completed [facility] Hep B, Adol or Pedi Dosage 2002-11-11 00:00:00 Completed [facility] DTaP, Unspecified Formulation 2002-11-11 00:00:00 Completed [facility] MMR 2002-11-11 00:00:00 Completed [facility] IPV 2002-11-11 00:00:00 Completed [facility] Polio (IPV/OPV) 2002-11-11 00:00:00 Completed [facility] Varicella (varivax)(chicken pox) 2002-11-11 00:00:00 Completed [facility] DTAP 2002-11-11 00:00:00 Completed [facility] Hep B, Adol or Pedi Dosage 2002-11-11 00:00:00 Completed [facility] DTaP, Unspecified Formulation 2002-11-11 00:00:00 Completed [facility] HIB 4 Dose Schedule 2002-11-11 00:00:00 Completed [facility] IPV 2002-11-11 00:00:00 Completed [facility] Polio (IPV/OPV) 2002-11-11 00:00:00 Completed [facility] MMR 2002-11-11 00:00:00 Completed [facility] DTaP, Unspecified Formulation 2002-11-11 00:00:00 Completed [facility] Varicella (varivax)(chicken pox) 2002-11-11 00:00:00 Completed [facility] IPV 2002-11-11 00:00:00 Completed [facility] DTAP 2002-11-11 00:00:00 Completed [facility] HIB 4 Dose Schedule 2002-11-11 00:00:00 Completed [facility] Hep B, Adol or Pedi Dosage 2002-11-11 00:00:00 Completed [facility] MMR 2002-11-11 00:00:00 Completed [facility] Polio (IPV/OPV) 2002-11-11 00:00:00 Completed [facility] Varicella (varivax)(chicken pox) 2002-11-11 00:00:00 Completed [facility] DTAP 2002-11-11 00:00:00 Completed [facility] Hep B, Adol or Pedi Dosage 2002-11-11 00:00:00 Completed [facility] HIB 4 Dose Schedule 2002-11-11 00:00:00 Completed [facility] Polio (IPV/OPV) 2002-11-11 00:00:00 Completed [facility] MMR 2002-11-11 00:00:00 Completed [facility] Varicella (varivax)(chicken pox) 2002-11-11 00:00:00 Completed [facility] DTAP 2002-11-11 00:00:00 Completed [facility] HIB 4 Dose Schedule 2002-11-11 00:00:00 Completed [facility] Hep B, Adol or Pedi Dosage 2002-11-11 00:00:00 Completed [facility] MMR 2002-11-11 00:00:00 Completed [facility] Polio (IPV/OPV) 2002-11-11 00:00:00 Completed [facility] Varicella (varivax)(chicken pox) 2002-11-11 00:00:00 Completed [facility] DTAP 2002-11-11 00:00:00 Completed [facility] Hep B, Adol or Pedi Dosage 2002-11-11 00:00:00 Completed [facility] HIB 4 Dose Schedule 2002-11-11 00:00:00 Completed [facility] Polio (IPV/OPV) 2002-11-11 00:00:00 Completed [facility] MMR 2002-11-11 00:00:00 Completed [facility] Varicella (varivax)(chicken pox) 2002-11-11 00:00:00 Completed [facility] DTAP 2002-11-11 00:00:00 Completed [facility] HIB 4 Dose Schedule 2002-11-11 00:00:00 Completed [facility] Hep B, Adol or Pedi Dosage 2002-11-11 00:00:00 Completed [facility] MMR 2002-11-11 00:00:00 Completed [facility] Polio (IPV/OPV) 2002-11-11 00:00:00 Completed [facility] Varicella (varivax)(chicken pox) 2002-11-11 00:00:00 Completed [facility] DTAP 2002-11-11 00:00:00 Completed [facility] Hep B, Adol or Pedi Dosage 2002-11-11 00:00:00 Completed [facility] HIB 4 Dose Schedule 2002-11-11 00:00:00 Completed [facility] Polio (IPV/OPV) 2002-11-11 00:00:00 Completed [facility] MMR 2002-11-11 00:00:00 Completed [facility] Varicella (varivax)(chicken pox) 2002-11-11 00:00:00 Completed [facility] DTAP 2002-11-11 00:00:00 Completed [facility] HIB 4 Dose Schedule 2002-11-11 00:00:00 Completed [facility] Hep B, Adol or Pedi Dosage 2002-11-11 00:00:00 Completed [facility] MMR 2002-11-11 00:00:00 Completed [facility] Polio (IPV/OPV) 2002-11-11 00:00:00 Completed [facility] Varicella (varivax)(chicken pox) 2002-11-11 00:00:00 Completed [facility] DTAP 2002-11-11 00:00:00 Completed [facility] Hep B, Adol or Pedi Dosage 2002-11-11 00:00:00 Completed [facility] HIB 4 Dose Schedule 2002-11-11 00:00:00 Completed [facility] Polio (IPV/OPV) 2002-11-11 00:00:00 Completed [facility] MMR 2002-11-11 00:00:00 Completed [facility] Varicella (varivax)(chicken pox) 2002-11-11 00:00:00 Completed [facility] DTAP 2002-11-11 00:00:00 Completed [facility] DTAP 2002-11-11 00:00:00 Completed [facility] HIB 4 Dose Schedule 2002-11-11 00:00:00 Completed [facility] HIB 4 Dose Schedule 2002-11-11 00:00:00 Completed [facility] Hep B, Adol or Pedi Dosage 2002-11-11 00:00:00 Completed [facility] MMR 2002-11-11 00:00:00 Completed [facility] Polio (IPV/OPV) 2002-11-11 00:00:00 Completed [facility] Varicella (varivax)(chicken pox) 2002-11-11 00:00:00 Completed [facility] DTAP 2002-11-11 00:00:00 Completed [facility] Hep B, Adol or Pedi Dosage 2002-11-11 00:00:00 Completed [facility] HIB 4 Dose Schedule 2002-11-11 00:00:00 Completed [facility] Polio (IPV/OPV) 2002-11-11 00:00:00 Completed [facility] MMR 2002-11-11 00:00:00 Completed [facility] Hep B, Adol or Pedi Dosage 2002-11-11 00:00:00 Completed [facility] Varicella (varivax)(chicken pox) 2002-11-11 00:00:00 Completed [facility] MMR 2002-11-11 00:00:00 Completed [facility] DTAP 2002-11-11 00:00:00 Completed [facility] HIB 4 Dose Schedule 2002-11-11 00:00:00 Completed [facility] Hep B, Adol or Pedi Dosage 2002-11-11 00:00:00 Completed [facility] MMR 2002-11-11 00:00:00 Completed [facility] Polio (IPV/OPV) 2002-11-11 00:00:00 Completed [facility] Varicella (varivax)(chicken pox) 2002-11-11 00:00:00 Completed [facility] Polio (IPV/OPV) 2002-11-11 00:00:00 Completed [facility] DTAP 2002-11-11 00:00:00 Completed [facility] Hep B, Adol or Pedi Dosage 2002-11-11 00:00:00 Completed [facility] HIB 4 Dose Schedule 2002-11-11 00:00:00 Completed [facility] Polio (IPV/OPV) 2002-11-11 00:00:00 Completed [facility] MMR 2002-11-11 00:00:00 Completed [facility] Varicella (varivax)(chicken pox) 2002-11-11 00:00:00 Completed [facility] Varicella (varivax)(chicken pox) 2002-11-11 00:00:00 Completed [facility] DTAP 2002-11-11 00:00:00 Completed [facility] DTAP 2002-11-11 00:00:00 Completed [facility] HIB 4 Dose Schedule 2002-11-11 00:00:00 Completed [facility] Hep B, Adol or Pedi Dosage 2002-11-11 00:00:00 Completed [facility] MMR 2002-11-11 00:00:00 Completed [facility] Polio (IPV/OPV) 2002-11-11 00:00:00 Completed [facility] Varicella (varivax)(chicken pox) 2002-11-11 00:00:00 Completed [facility] DTAP 2002-11-11 00:00:00 Completed [facility] Hep B, Adol or Pedi Dosage 2002-11-11 00:00:00 Completed [facility] HIB 4 Dose Schedule 2002-11-11 00:00:00 Completed [facility] Hep B, Adol or Pedi Dosage 2002-11-11 00:00:00 Completed [facility] Polio (IPV/OPV) 2002-11-11 00:00:00 Completed [facility] MMR 2002-11-11 00:00:00 Completed [facility] Varicella (varivax)(chicken pox) 2002-11-11 00:00:00 Completed [facility] HIB 4 Dose Schedule 2002-11-11 00:00:00 Completed [facility] DTAP 2002-11-11 00:00:00 Completed [facility] HIB 4 Dose Schedule 2002-11-11 00:00:00 Completed [facility] Hep B, Adol or Pedi Dosage 2002-11-11 00:00:00 Completed [facility] MMR 2002-11-11 00:00:00 Completed [facility] Polio (IPV/OPV) 2002-11-11 00:00:00 Completed [facility] Varicella (varivax)(chicken pox) 2002-11-11 00:00:00 Completed [facility] Polio (IPV/OPV) 2002-11-11 00:00:00 Completed [facility] DTAP 2002-11-11 00:00:00 Completed [facility] Hep B, Adol or Pedi Dosage 2002-11-11 00:00:00 Completed [facility] HIB 4 Dose Schedule 2002-11-11 00:00:00 Completed [facility] Polio (IPV/OPV) 2002-11-11 00:00:00 Completed [facility] MMR 2002-11-11 00:00:00 Completed [facility] Varicella (varivax)(chicken pox) 2002-11-11 00:00:00 Completed [facility] MMR 2002-11-11 00:00:00 Completed [facility] Varicella (varivax)(chicken pox) 2002-11-11 00:00:00 Completed [facility] DTAP 2002-11-11 00:00:00 Completed [facility] HIB 4 Dose Schedule 2002-11-11 00:00:00 Completed [facility] Hep B, Adol or Pedi Dosage 2002-11-11 00:00:00 Completed [facility] MMR 2002-11-11 00:00:00 Completed [facility] Polio (IPV/OPV) 2002-11-11 00:00:00 Completed [facility] Varicella (varivax)(chicken pox) 2002-11-11 00:00:00 Completed [facility] DTAP 2002-11-11 00:00:00 Completed [facility] Hep B, Adol or Pedi Dosage 2002-11-11 00:00:00 Completed [facility] HIB 4 Dose Schedule 2002-11-11 00:00:00 Completed [facility] Polio (IPV/OPV) 2002-11-11 00:00:00 Completed [facility] MMR 2002-11-11 00:00:00 Completed [facility] Varicella (varivax)(chicken pox) 2002-11-11 00:00:00 Completed [facility] DTAP 2002-11-11 00:00:00 Completed [facility] HIB 4 Dose Schedule 2002-11-11 00:00:00 Completed [facility] Hep B, Adol or Pedi Dosage 2002-11-11 00:00:00 Completed [facility] MMR 2002-11-11 00:00:00 Completed [facility] Polio (IPV/OPV) 2002-11-11 00:00:00 Completed [facility] Varicella (varivax)(chicken pox) 2002-11-11 00:00:00 Completed [facility] DTAP 2002-11-11 00:00:00 Completed [facility] Hep B, Adol or Pedi Dosage 2002-11-11 00:00:00 Completed [facility] HIB 4 Dose Schedule 2002-11-11 00:00:00 Completed [facility] Polio (IPV/OPV) 2002-11-11 00:00:00 Completed [facility] MMR 2002-11-11 00:00:00 Completed [facility] Varicella (varivax)(chicken pox) 2002-11-11 00:00:00 Completed [facility] DTAP 2002-11-11 00:00:00 Completed [facility] HIB 4 Dose Schedule 2002-11-11 00:00:00 Completed [facility] Hep B, Adol or Pedi Dosage 2002-11-11 00:00:00 Completed [facility] MMR 2002-11-11 00:00:00 Completed [facility] Polio (IPV/OPV) 2002-11-11 00:00:00 Completed [facility] Varicella (varivax)(chicken pox) 2002-11-11 00:00:00 Completed [facility] DTAP 2002-11-11 00:00:00 Completed [facility] Hep B, Adol or Pedi Dosage 2002-11-11 00:00:00 Completed [facility] HIB 4 Dose Schedule 2002-11-11 00:00:00 Completed [facility] Polio (IPV/OPV) 2002-11-11 00:00:00 Completed [facility] MMR 2002-11-11 00:00:00 Completed [facility] Varicella (varivax)(chicken pox) 2002-11-11 00:00:00 Completed [facility] DTaP, Unspecified Formulation 2002-11-11 00:00:00 Completed [facility] IPV 2002-11-11 00:00:00 Completed [facility] DTAP 2002-11-11 00:00:00 Completed [facility] HIB 4 Dose Schedule 2002-11-11 00:00:00 Completed [facility] DTaP, Unspecified Formulation 2002-11-11 00:00:00 Completed [facility] IPV 2002-11-11 00:00:00 Completed [facility] Hep B, Adol or Pedi Dosage 2002-11-11 00:00:00 Completed [facility] MMR 2002-11-11 00:00:00 Completed [facility] Polio (IPV/OPV) 2002-11-11 00:00:00 Completed [facility] DTaP, Unspecified Formulation 2002-11-11 00:00:00 Completed [facility] Varicella (varivax)(chicken pox) 2002-11-11 00:00:00 Completed [facility] IPV 2002-11-11 00:00:00 Completed [facility] DTAP 2002-11-11 00:00:00 Completed [facility] Hep B, Adol or Pedi Dosage 2002-11-11 00:00:00 Completed [facility] DTaP, Unspecified Formulation 2002-11-11 00:00:00 Completed [facility] HIB 4 Dose Schedule 2002-11-11 00:00:00 Completed [facility] IPV 2002-11-11 00:00:00 Completed [facility] Polio (IPV/OPV) 2002-11-11 00:00:00 Completed [facility] MMR 2002-11-11 00:00:00 Completed [facility] DTaP, Unspecified Formulation 2002-11-11 00:00:00 Completed [facility] Varicella (varivax)(chicken pox) 2002-11-11 00:00:00 Completed [facility] IPV 2002-11-11 00:00:00 Completed [facility] DTaP, Unspecified Formulation 2002-11-11 00:00:00 Completed [facility] IPV 2002-11-11 00:00:00 Completed [facility] DTaP, Unspecified Formulation 2002-11-11 00:00:00 Completed [facility] IPV 2002-11-11 00:00:00 Completed [facility] DTAP 2002-11-11 00:00:00 Completed [facility] HIB 4 Dose Schedule 2002-11-11 00:00:00 Completed [facility] DTaP, Unspecified Formulation 2002-11-11 00:00:00 Completed [facility] Hep B, Adol or Pedi Dosage 2002-11-11 00:00:00 Completed [facility] IPV 2002-11-11 00:00:00 Completed [facility] MMR 2002-11-11 00:00:00 Completed [facility] Polio (IPV/OPV) 2002-11-11 00:00:00 Completed [facility] DTaP, Unspecified Formulation 2002-11-11 00:00:00 Completed [facility] Varicella (varivax)(chicken pox) 2002-11-11 00:00:00 Completed [facility] IPV 2002-11-11 00:00:00 Completed [facility] DTAP 2002-11-11 00:00:00 Completed [facility] Hep B, Adol or Pedi Dosage 2002-11-11 00:00:00 Completed [facility] DTaP, Unspecified Formulation 2002-11-11 00:00:00 Completed [facility] HIB 4 Dose Schedule 2002-11-11 00:00:00 Completed [facility] IPV 2002-11-11 00:00:00 Completed [facility] Polio (IPV/OPV) 2002-11-11 00:00:00 Completed [facility] MMR 2002-11-11 00:00:00 Completed [facility] Varicella (varivax)(chicken pox) 2002-11-11 00:00:00 Completed [facility] DTaP, Unspecified Formulation 2002-11-11 00:00:00 Completed [facility] IPV 2002-11-11 00:00:00 Completed [facility] DTaP, Unspecified Formulation 2002-11-11 00:00:00 Completed [facility] IPV 2002-11-11 00:00:00 Completed [facility] DTaP, Unspecified Formulation 2002-11-11 00:00:00 Completed [facility] DTAP 2002-11-11 00:00:00 Completed [facility] IPV 2002-11-11 00:00:00 Completed [facility] Poliovirus, Live, Oral, Trivalent 1999-05-14 00:00:00 Completed [facility] DTaP, Unspecified Formulation 1999-05-14 00:00:00 Completed [facility] HIB 4 Dose Schedule 1999-05-14 00:00:00 Completed [facility] Poliovirus, Live, Oral, Trivalent 1999-05-14 00:00:00 Completed [facility] DTaP, Unspecified Formulation 1999-05-14 00:00:00 Completed [facility] HIB 4 Dose Schedule 1999-05-14 00:00:00 Completed [facility] Poliovirus, Live, Oral, Trivalent 1999-05-14 00:00:00 Completed [facility] DTaP, Unspecified Formulation 1999-05-14 00:00:00 Completed [facility] HIB 4 Dose Schedule 1999-05-14 00:00:00 Completed [facility] Poliovirus, Live, Oral, Trivalent 1999-05-14 00:00:00 Completed [facility] DTaP, Unspecified Formulation 1999-05-14 00:00:00 Completed [facility] HIB 4 Dose Schedule 1999-05-14 00:00:00 Completed [facility] Poliovirus, Live, Oral, Trivalent 1999-05-14 00:00:00 Completed [facility] DTaP, Unspecified Formulation 1999-05-14 00:00:00 Completed [facility] HIB 4 Dose Schedule 1999-05-14 00:00:00 Completed [facility] Poliovirus, Live, Oral, Trivalent 1999-05-14 00:00:00 Completed [facility] DTaP, Unspecified Formulation 1999-05-14 00:00:00 Completed [facility] HIB 4 Dose Schedule 1999-05-14 00:00:00 Completed [facility] Poliovirus, Live, Oral, Trivalent 1999-05-14 00:00:00 Completed [facility] DTaP, Unspecified Formulation 1999-05-14 00:00:00 Completed [facility] HIB 4 Dose Schedule 1999-05-14 00:00:00 Completed [facility] Poliovirus, Live, Oral, Trivalent 1999-05-14 00:00:00 Completed [facility] DTaP, Unspecified Formulation 1999-05-14 00:00:00 Completed [facility] HIB 4 Dose Schedule 1999-05-14 00:00:00 Completed [facility] Poliovirus, Live, Oral, Trivalent 1999-05-14 00:00:00 Completed [facility] DTaP, Unspecified Formulation 1999-05-14 00:00:00 Completed [facility] HIB 4 Dose Schedule 1999-05-14 00:00:00 Completed [facility] Poliovirus, Live, Oral, Trivalent 1999-05-14 00:00:00 Completed [facility] DTaP, Unspecified Formulation 1999-05-14 00:00:00 Completed [facility] HIB 4 Dose Schedule 1999-05-14 00:00:00 Completed [facility] Poliovirus, Live, Oral, Trivalent 1999-05-14 00:00:00 Completed [facility] DTaP, Unspecified Formulation 1999-05-14 00:00:00 Completed [facility] HIB 4 Dose Schedule 1999-05-14 00:00:00 Completed [facility] Poliovirus, Live, Oral, Trivalent 1999-05-14 00:00:00 Completed [facility] DTaP, Unspecified Formulation 1999-05-14 00:00:00 Completed [facility] HIB 4 Dose Schedule 1999-05-14 00:00:00 Completed [facility] Poliovirus, Live, Oral, Trivalent 1999-05-14 00:00:00 Completed [facility] DTaP, Unspecified Formulation 1999-05-14 00:00:00 Completed [facility] HIB 4 Dose Schedule 1999-05-14 00:00:00 Completed [facility] Poliovirus, Live, Oral, Trivalent 1999-05-14 00:00:00 Completed [facility] DTaP, Unspecified Formulation 1999-05-14 00:00:00 Completed [facility] HIB 4 Dose Schedule 1999-05-14 00:00:00 Completed [facility] Poliovirus, Live, Oral, Trivalent 1999-05-14 00:00:00 Completed [facility] DTaP, Unspecified Formulation 1999-05-14 00:00:00 Completed [facility] HIB 4 Dose Schedule 1999-05-14 00:00:00 Completed [facility] Poliovirus, Live, Oral, Trivalent 1999-05-14 00:00:00 Completed [facility] DTaP, Unspecified Formulation 1999-05-14 00:00:00 Completed [facility] HIB 4 Dose Schedule 1999-05-14 00:00:00 Completed [facility] Poliovirus, Live, Oral, Trivalent 1999-05-14 00:00:00 Completed [facility] DTaP, Unspecified Formulation 1999-05-14 00:00:00 Completed [facility] HIB 4 Dose Schedule 1999-05-14 00:00:00 Completed [facility] Poliovirus, Live, Oral, Trivalent 1999-05-14 00:00:00 Completed [facility] DTaP, Unspecified Formulation 1999-05-14 00:00:00 Completed [facility] HIB 4 Dose Schedule 1999-05-14 00:00:00 Completed [facility] Poliovirus, Live, Oral, Trivalent 1999-05-14 00:00:00 Completed [facility] DTaP, Unspecified Formulation 1999-05-14 00:00:00 Completed [facility] HIB 4 Dose Schedule 1999-05-14 00:00:00 Completed [facility] Poliovirus, Live, Oral, Trivalent 1999-05-14 00:00:00 Completed [facility] DTaP, Unspecified Formulation 1999-05-14 00:00:00 Completed [facility] HIB 4 Dose Schedule 1999-05-14 00:00:00 Completed [facility] Poliovirus, Live, Oral, Trivalent 1999-05-14 00:00:00 Completed [facility] DTaP, Unspecified Formulation 1999-05-14 00:00:00 Completed [facility] HIB 4 Dose Schedule 1999-05-14 00:00:00 Completed [facility] Poliovirus, Live, Oral, Trivalent 1999-01-26 00:00:00 Completed [facility] DTaP, Unspecified Formulation 1999-01-26 00:00:00 Completed [facility] Hep B, Adol or Pedi Dosage 1999-01-26 00:00:00 Completed [facility] HIB 4 Dose Schedule 1999-01-26 00:00:00 Completed [facility] Poliovirus, Live, Oral, Trivalent 1999-01-26 00:00:00 Completed [facility] DTaP, Unspecified Formulation 1999-01-26 00:00:00 Completed [facility] Hep B, Adol or Pedi Dosage 1999-01-26 00:00:00 Completed [facility] HIB 4 Dose Schedule 1999-01-26 00:00:00 Completed [facility] Poliovirus, Live, Oral, Trivalent 1999-01-26 00:00:00 Completed [facility] DTaP, Unspecified Formulation 1999-01-26 00:00:00 Completed [facility] Hep B, Adol or Pedi Dosage 1999-01-26 00:00:00 Completed [facility] HIB 4 Dose Schedule 1999-01-26 00:00:00 Completed [facility] Poliovirus, Live, Oral, Trivalent 1999-01-26 00:00:00 Completed [facility] DTaP, Unspecified Formulation 1999-01-26 00:00:00 Completed [facility] Hep B, Adol or Pedi Dosage 1999-01-26 00:00:00 Completed [facility] HIB 4 Dose Schedule 1999-01-26 00:00:00 Completed [facility] Poliovirus, Live, Oral, Trivalent 1999-01-26 00:00:00 Completed [facility] DTaP, Unspecified Formulation 1999-01-26 00:00:00 Completed [facility] Hep B, Adol or Pedi Dosage 1999-01-26 00:00:00 Completed [facility] HIB 4 Dose Schedule 1999-01-26 00:00:00 Completed [facility] Poliovirus, Live, Oral, Trivalent 1999-01-26 00:00:00 Completed [facility] DTaP, Unspecified Formulation 1999-01-26 00:00:00 Completed [facility] Hep B, Adol or Pedi Dosage 1999-01-26 00:00:00 Completed [facility] HIB 4 Dose Schedule 1999-01-26 00:00:00 Completed [facility] Poliovirus, Live, Oral, Trivalent 1999-01-26 00:00:00 Completed [facility] DTaP, Unspecified Formulation 1999-01-26 00:00:00 Completed [facility] Hep B, Adol or Pedi Dosage 1999-01-26 00:00:00 Completed [facility] HIB 4 Dose Schedule 1999-01-26 00:00:00 Completed [facility] Poliovirus, Live, Oral, Trivalent 1999-01-26 00:00:00 Completed [facility] DTaP, Unspecified Formulation 1999-01-26 00:00:00 Completed [facility] Hep B, Adol or Pedi Dosage 1999-01-26 00:00:00 Completed [facility] HIB 4 Dose Schedule 1999-01-26 00:00:00 Completed [facility] Poliovirus, Live, Oral, Trivalent 1999-01-26 00:00:00 Completed [facility] DTaP, Unspecified Formulation 1999-01-26 00:00:00 Completed [facility] Hep B, Adol or Pedi Dosage 1999-01-26 00:00:00 Completed [facility] HIB 4 Dose Schedule 1999-01-26 00:00:00 Completed [facility] Poliovirus, Live, Oral, Trivalent 1999-01-26 00:00:00 Completed [facility] DTaP, Unspecified Formulation 1999-01-26 00:00:00 Completed [facility] Hep B, Adol or Pedi Dosage 1999-01-26 00:00:00 Completed [facility] HIB 4 Dose Schedule 1999-01-26 00:00:00 Completed [facility] Poliovirus, Live, Oral, Trivalent 1999-01-26 00:00:00 Completed [facility] DTaP, Unspecified Formulation 1999-01-26 00:00:00 Completed [facility] Hep B, Adol or Pedi Dosage 1999-01-26 00:00:00 Completed [facility] HIB 4 Dose Schedule 1999-01-26 00:00:00 Completed [facility] Poliovirus, Live, Oral, Trivalent 1999-01-26 00:00:00 Completed [facility] DTaP, Unspecified Formulation 1999-01-26 00:00:00 Completed [facility] Hep B, Adol or Pedi Dosage 1999-01-26 00:00:00 Completed [facility] HIB 4 Dose Schedule 1999-01-26 00:00:00 Completed [facility] Poliovirus, Live, Oral, Trivalent 1999-01-26 00:00:00 Completed [facility] DTaP, Unspecified Formulation 1999-01-26 00:00:00 Completed [facility] Hep B, Adol or Pedi Dosage 1999-01-26 00:00:00 Completed [facility] HIB 4 Dose Schedule 1999-01-26 00:00:00 Completed [facility] Poliovirus, Live, Oral, Trivalent 1999-01-26 00:00:00 Completed [facility] DTaP, Unspecified Formulation 1999-01-26 00:00:00 Completed [facility] Hep B, Adol or Pedi Dosage 1999-01-26 00:00:00 Completed [facility] HIB 4 Dose Schedule 1999-01-26 00:00:00 Completed [facility] Poliovirus, Live, Oral, Trivalent 1999-01-26 00:00:00 Completed [facility] DTaP, Unspecified Formulation 1999-01-26 00:00:00 Completed [facility] Hep B, Adol or Pedi Dosage 1999-01-26 00:00:00 Completed [facility] HIB 4 Dose Schedule 1999-01-26 00:00:00 Completed [facility] Poliovirus, Live, Oral, Trivalent 1999-01-26 00:00:00 Completed [facility] DTaP, Unspecified Formulation 1999-01-26 00:00:00 Completed [facility] Hep B, Adol or Pedi Dosage 1999-01-26 00:00:00 Completed [facility] HIB 4 Dose Schedule 1999-01-26 00:00:00 Completed [facility] Poliovirus, Live, Oral, Trivalent 1999-01-26 00:00:00 Completed [facility] DTaP, Unspecified Formulation 1999-01-26 00:00:00 Completed [facility] Hep B, Adol or Pedi Dosage 1999-01-26 00:00:00 Completed [facility] HIB 4 Dose Schedule 1999-01-26 00:00:00 Completed [facility] Poliovirus, Live, Oral, Trivalent 1999-01-26 00:00:00 Completed [facility] DTaP, Unspecified Formulation 1999-01-26 00:00:00 Completed [facility] Hep B, Adol or Pedi Dosage 1999-01-26 00:00:00 Completed [facility] HIB 4 Dose Schedule 1999-01-26 00:00:00 Completed [facility] Poliovirus, Live, Oral, Trivalent 1999-01-26 00:00:00 Completed [facility] DTaP, Unspecified Formulation 1999-01-26 00:00:00 Completed [facility] Hep B, Adol or Pedi Dosage 1999-01-26 00:00:00 Completed [facility] HIB 4 Dose Schedule 1999-01-26 00:00:00 Completed [facility] Poliovirus, Live, Oral, Trivalent 1999-01-26 00:00:00 Completed [facility] DTaP, Unspecified Formulation 1999-01-26 00:00:00 Completed [facility] Hep B, Adol or Pedi Dosage 1999-01-26 00:00:00 Completed [facility] HIB 4 Dose Schedule 1999-01-26 00:00:00 Completed [facility] Poliovirus, Live, Oral, Trivalent 1999-01-26 00:00:00 Completed [facility] DTaP, Unspecified Formulation 1999-01-26 00:00:00 Completed [facility] Hep B, Adol or Pedi Dosage 1999-01-26 00:00:00 Completed [facility] HIB 4 Dose Schedule 1999-01-26 00:00:00 Completed [facility] Hep B, Adol or Pedi Dosage 1998 00:00:00 Completed [facility] Hep B, Adol or Pedi Dosage 1998 00:00:00 Completed [facility] Hep B, Adol or Pedi Dosage 1998 00:00:00 Completed [facility] Hep B, Adol or Pedi Dosage 1998 00:00:00 Completed [facility] Hep B, Adol or Pedi Dosage 1998 00:00:00 Completed [facility] Hep B, Adol or Pedi Dosage 1998 00:00:00 Completed [facility] Hep B, Adol or Pedi Dosage 1998 00:00:00 Completed [facility] Hep B, Adol or Pedi Dosage 1998 00:00:00 Completed [facility] Hep B, Adol or Pedi Dosage 1998 00:00:00 Completed [facility] Hep B, Adol or Pedi Dosage 1998 00:00:00 Completed [facility] Hep B, Adol or Pedi Dosage 1998 00:00:00 Completed [facility] Hep B, Adol or Pedi Dosage 1998 00:00:00 Completed [facility] Hep B, Adol or Pedi Dosage 1998 00:00:00 Completed [facility] Hep B, Adol or Pedi Dosage 1998 00:00:00 Completed [facility] Hep B, Adol or Pedi Dosage 1998 00:00:00 Completed [facility] Hep B, Adol or Pedi Dosage 1998 00:00:00 Completed [facility] Hep B, Adol or Pedi Dosage 1998 00:00:00 Completed [facility] Hep B, Adol or Pedi Dosage 1998 00:00:00 Completed [facility] Hep B, Adol or Pedi Dosage 1998 00:00:00 Completed [facility] Hep B, Adol or Pedi Dosage 1998 00:00:00 Completed [facility] Hep B, Adol or Pedi Dosage 1998 00:00:00 Completed [facility] HPV Unknown Completed [facility] Meningococcal Polysaccharide (groups A, C, Y and W-135) conjugate vaccine (MCV4P) Unknown Completed [facility] TDAP (ADACEL) VACCINE Unknown Completed [facility] Influenza Virus Vaccine Quad .5 mL IM 6+ MO (FLUZONE/FLULAVAL/FL UARIX) Unknown Completed [facility] TDAP (ADACEL) VACCINE Unknown Completed [facility] TDAP (ADACEL) VACCINE Unknown Completed [facility] Influenza Virus Vaccine Quad .5 mL IM 6+ MO (FLUZONE/FLULAVAL/FL UARIX) Unknown Completed [facility] HPV Unknown Completed [facility] Meningococcal Polysaccharide (groups A, C, Y and W-135) conjugate vaccine (MCV4P) Unknown Completed [facility] Varicella (varivax)(chicken pox) Unknown Completed [facility] SARS-COV-2 COVID-19 VACCINE - (MODERNA) Unknown [facility] SARS-COV-2 COVID-19 VACCINE - (MODERNA) Unknown [facility] DTaP, Unspecified Formulation Unknown Completed [facility] DTaP, Unspecified Formulation Unknown Completed [facility] DTaP, Unspecified Formulation Unknown Completed [facility] DTaP, Unspecified Formulation Unknown Completed [facility] HEPATITIS A Unknown [facility]pleted [facility] Hep B, Adol or Pedi Dosage Unknown Completed [facility] Hep B, Adol or Pedi Dosage Unknown Completed [facility] HIB 4 Dose Schedule Unknown Completed [facility] HIB 4 Dose Schedule Unknown Completed [facility] MMR Unknown Completed [facility] IPV Unknown Completed [facility] IPV Unknown Completed [facility] Poliovirus, Live, Oral, Trivalent Unknown Completed [facility] Poliovirus, Live, Oral, Trivalent Unknown Completed [facility] Tetanus/Diptheria Unknown Completed [facility] HPV Unknown Completed [facility] Meningococcal Polysaccharide (groups A, C, Y and W-135) conjugate vaccine (MCV4P) Unknown Completed [facility] TDAP (ADACEL) VACCINE Unknown Completed [facility] Influenza Virus Vaccine Quad .5 mL IM 6+ MO (FLUZONE/FLULAVAL/FL UARIX) Unknown Completed [facility] TDAP (ADACEL) VACCINE Unknown Completed [facility] TDAP (ADACEL) VACCINE Unknown Completed [facility] Influenza Virus Vaccine Quad .5 mL IM 6+ MO (FLUZONE/FLULAVAL/FL UARIX) Unknown Completed [facility] HPV Unknown Completed [facility] Meningococcal Polysaccharide (groups A, C, Y and W-135) conjugate vaccine (MCV4P) Unknown Completed [facility] Varicella (varivax)(chicken pox) Unknown Completed [facility] SARS-COV-2 COVID-19 VACCINE - (MODERNA) Unknown [facility] SARS-COV-2 COVID-19 VACCINE - (MODERNA) Unknown [facility]pleted [facility] DTaP, Unspecified Formulation Unknown Completed [facility] DTaP, Unspecified Formulation Unknown Completed [facility] DTaP, Unspecified Formulation Unknown Completed [facility] DTaP, Unspecified Formulation Unknown Completed [facility] HEPATITIS A Unknown [facility]pleted [facility] Hep B, Adol or Pedi Dosage Unknown Completed [facility] Hep B, Adol or Pedi Dosage Unknown Completed [facility] HIB 4 Dose Schedule Unknown Completed [facility] HIB 4 Dose Schedule Unknown Completed [facility] MMR Unknown Completed [facility] IPV Unknown Completed [facility] IPV Unknown Completed [facility] Poliovirus, Live, Oral, Trivalent Unknown Completed [facility] Poliovirus, Live, Oral, Trivalent Unknown Completed [facility] Tetanus/Diptheria Unknown Completed [facility] HPV Unknown Completed [facility] Meningococcal Polysaccharide (groups A, C, Y and W-135) conjugate vaccine (MCV4P) Unknown Completed [facility] TDAP (ADACEL) VACCINE Unknown Completed [facility] Influenza Virus Vaccine Quad .5 mL IM 6+ MO (FLUZONE/FLULAVAL/FL UARIX) Unknown Completed [facility] TDAP (ADACEL) VACCINE Unknown Completed [facility] TDAP (ADACEL) VACCINE Unknown Completed [facility] Influenza Virus Vaccine Quad .5 mL IM 6+ MO (FLUZONE/FLULAVAL/FL UARIX) Unknown Completed [facility] HPV Unknown Completed [facility] Meningococcal Polysaccharide (groups A, C, Y and W-135) conjugate vaccine (MCV4P) Unknown Completed [facility] Varicella (varivax)(chicken pox) Unknown Completed [facility] SARS-COV-2 COVID-19 VACCINE - (MODERNA) Unknown [facility]pleted [facility] SARS-COV-2 COVID-19 VACCINE - (MODERNA) Unknown [facility]pleted [facility] DTaP, Unspecified Formulation Unknown Completed [facility] DTaP, Unspecified Formulation Unknown Completed [facility] DTaP, Unspecified Formulation Unknown Completed [facility] DTaP, Unspecified Formulation Unknown Completed [facility] HEPATITIS A Unknown Completed [facility] Hep B, Adol or Pedi Dosage Unknown Completed [facility] Hep B, Adol or Pedi Dosage Unknown Completed [facility] HIB 4 Dose Schedule Unknown Completed [facility] HIB 4 Dose Schedule Unknown Completed [facility] MMR Unknown Completed [facility] IPV Unknown Completed [facility] IPV Unknown Completed [facility] Poliovirus, Live, Oral, Trivalent Unknown Completed [facility] Poliovirus, Live, Oral, Trivalent Unknown Completed [facility] Tetanus/Diptheria Unknown Completed [facility] HPV Unknown Completed [facility] Meningococcal Polysaccharide (groups A, C, Y and W-135) conjugate vaccine (MCV4P) Unknown Completed [facility] TDAP (ADACEL) VACCINE Unknown Completed [facility] Influenza Virus Vaccine Quad .5 mL IM 6+ MO (FLUZONE/FLULAVAL/FL UARIX) Unknown Completed [facility] TDAP (ADACEL) VACCINE Unknown Completed [facility] TDAP (ADACEL) VACCINE Unknown Completed [facility] Influenza Virus Vaccine Quad .5 mL IM 6+ MO (FLUZONE/FLULAVAL/FL UARIX) Unknown Completed [facility] HPV Unknown Completed [facility] Meningococcal Polysaccharide (groups A, C, Y and W-135) conjugate vaccine (MCV4P) Unknown Completed [facility] Varicella (varivax)(chicken pox) Unknown Completed [facility] SARS-COV-2 COVID-19 VACCINE - (MODERNA) Unknown [facility]pleted [facility] SARS-COV-2 COVID-19 VACCINE - (MODERNA) Unknown Completed [facility] DTaP, Unspecified Formulation Unknown Completed [facility] DTaP, Unspecified Formulation Unknown Completed [facility] DTaP, Unspecified Formulation Unknown Completed [facility] DTaP, Unspecified Formulation Unknown Completed [facility] HEPATITIS A Unknown Completed [facility] Hep B, Adol or Pedi Dosage Unknown Completed [facility] Hep B, Adol or Pedi Dosage Unknown Completed [facility] HIB 4 Dose Schedule Unknown Completed [facility] HIB 4 Dose Schedule Unknown Completed [facility] MMR Unknown Completed [facility] IPV Unknown Completed [facility] IPV Unknown Completed [facility] Poliovirus, Live, Oral, Trivalent Unknown Completed [facility] Poliovirus, Live, Oral, Trivalent Unknown Completed [facility]heria [facility] Meningococcal Polysaccharide (groups A, C, Y and W-135) conjugate vaccine (MCV4P) Unknown Completed [facility] TDAP (ADACEL) VACCINE Unknown Completed [facility] Influenza Virus Vaccine Quad .5 mL IM 6+ MO (FLUZONE/FLULAVAL/FL UARIX) Unknown Completed [facility] TDAP (ADACEL) VACCINE Unknown Completed [facility] TDAP (ADACEL) VACCINE Unknown Completed [facility] Influenza Virus Vaccine Quad .5 mL IM 6+ MO (FLUZONE/FLULAVAL/FL UARIX) Unknown Completed [facility] HPV Unknown Completed [facility] Meningococcal Polysaccharide (groups A, C, Y and W-135) conjugate vaccine (MCV4P) Unknown Completed [facility] Varicella (varivax)(chicken pox) Unknown Completed [facility] SARS-COV-2 COVID-19 VACCINE - (MODERNA) Unknown [facility] DTaP, Unspecified Formulation Unknown Completed [facility] DTaP, Unspecified Formulation Unknown Completed [facility] DTaP, Unspecified Formulation Unknown Completed [facility] DTaP, Unspecified Formulation Unknown Completed [facility] HEPATITIS A Unknown Completed [facility] Hep B, Adol or Pedi Dosage Unknown Completed [facility] Hep B, Adol or Pedi Dosage Unknown Completed [facility] HIB 4 Dose Schedule Unknown Completed [facility] HIB 4 Dose Schedule Unknown Completed [facility] MMR Unknown Completed [facility] IPV Unknown Completed [facility] IPV Unknown Completed [facility] Poliovirus, Live, Oral, Trivalent Unknown Completed [facility] Poliovirus, Live, Oral, Trivalent Unknown Completed [facility] Tetanus/Diptheria [facility] Meningococcal Polysaccharide (groups A, C, Y and W-135) conjugate vaccine (MCV4P) Unknown Completed [facility] TDAP (ADACEL) VACCINE Unknown Completed [facility] Influenza Virus Vaccine Quad .5 mL IM 6+ MO (FLUZONE/FLULAVAL/FL UARIX) Unknown Completed [facility] TDAP (ADACEL) VACCINE Unknown Completed [facility] TDAP (ADACEL) VACCINE Unknown Completed [facility] Influenza Virus Vaccine Quad .5 mL IM 6+ MO (FLUZONE/FLULAVAL/FL UARIX) Unknown Completed [facility] HPV Unknown Completed [facility] Meningococcal Polysaccharide (groups A, C, Y and W-135) conjugate vaccine (MCV4P) Unknown Completed [facility] Varicella (varivax)(chicken pox) Unknown Completed [facility] SARS-COV-2 COVID-19 VACCINE - (MODERNA) Unknown [facility] SARS-COV-2 COVID-19 VACCINE - (MODERNA) Unknown Completed [facility] DTaP, Unspecified Formulation Unknown Completed [facility] DTaP, Unspecified Formulation Unknown Completed [facility] DTaP, Unspecified Formulation Unknown Completed [facility] DTaP, Unspecified Formulation Unknown Completed [facility] HEPATITIS A Unknown Completed [facility] Hep B, Adol or Pedi Dosage Unknown Completed [facility] Hep B, Adol or Pedi Dosage Unknown Completed [facility] HIB 4 Dose Schedule Unknown Completed [facility] HIB 4 Dose Schedule Unknown Completed [facility] MMR Unknown Completed [facility] IPV Unknown Completed [facility] IPV Unknown Completed [facility] Poliovirus, Live, Oral, Trivalent Unknown Completed [facility] Poliovirus, Live, Oral, Trivalent Unknown Completed [facility] Tetanus/Diptheria Unknown Completed [facility] HPV Unknown Completed [facility] Meningococcal Polysaccharide (groups A, C, Y and W-135) conjugate vaccine (MCV4P) Unknown Completed [facility] TDAP (ADACEL) VACCINE Unknown Completed [facility] Influenza Virus Vaccine Quad .5 mL IM 6+ MO (FLUZONE/FLULAVAL/FL UARIX) Unknown Completed [facility] TDAP (ADACEL) VACCINE Unknown Completed [facility] TDAP (ADACEL) VACCINE Unknown Completed [facility] Influenza Virus Vaccine Quad .5 mL IM 6+ MO (FLUZONE/FLULAVAL/FL UARIX) Unknown Completed [facility] HPV Unknown Completed [facility] Meningococcal Polysaccharide (groups A, C, Y and W-135) conjugate vaccine (MCV4P) Unknown Completed [facility] Varicella (varivax)(chicken pox) Unknown Completed [facility] SARS-COV-2 COVID-19 VACCINE - (MODERNA) Unknown [facility]pleted [facility] SARS-COV-2 COVID-19 VACCINE - (MODERNA) Unknown Completed [facility] DTaP, Unspecified Formulation Unknown Completed [facility] DTaP, Unspecified Formulation Unknown Completed [facility] DTaP, Unspecified Formulation Unknown Completed [facility] DTaP, Unspecified Formulation Unknown Completed [facility] HEPATITIS A Unknown Completed [facility] Hep B, Adol or Pedi Dosage Unknown Completed [facility] Hep B, Adol or Pedi Dosage Unknown Completed [facility] HIB 4 Dose Schedule Unknown Completed [facility] HIB 4 Dose Schedule Unknown Completed [facility] MMR Unknown Completed [facility] IPV Unknown Completed [facility] IPV Unknown Completed [facility] Poliovirus, Live, Oral, Trivalent Unknown Completed [facility] Poliovirus, Live, Oral, Trivalent Unknown Completed [facility]anus[facility]Diptheria [facility] Meningococcal Polysaccharide (groups A, C, Y and W-135) conjugate vaccine (MCV4P) Unknown Completed [facility] TDAP (ADACEL) VACCINE Unknown Completed [facility] Influenza Virus Vaccine Quad .5 mL IM 6+ MO (FLUZONE/FLULAVAL/FL UARIX) Unknown Completed [facility] TDAP (ADACEL) VACCINE Unknown Completed [facility] TDAP (ADACEL) VACCINE Unknown Completed [facility] Influenza Virus Vaccine Quad .5 mL IM 6+ MO (FLUZONE/FLULAVAL/FL UARIX) Unknown Completed [facility] HPV Unknown Completed [facility] Meningococcal Polysaccharide (groups A, C, Y and W-135) conjugate vaccine (MCV4P) Unknown Completed [facility] Varicella (varivax)(chicken pox) Unknown Completed [facility] SARS-COV-2 COVID-19 VACCINE - (MODERNA) Unknown [facility]pleted [facility] SARS-COV-2 COVID-19 VACCINE - (MODERNA) Unknown Completed [facility] DTaP, Unspecified Formulation Unknown Completed [facility] DTaP, Unspecified Formulation Unknown Completed [facility] DTaP, Unspecified Formulation Unknown Completed [facility] DTaP, Unspecified Formulation Unknown Completed [facility] HEPATITIS A Unknown Completed [facility] Hep B, Adol or Pedi Dosage Unknown Completed [facility] Hep B, Adol or Pedi Dosage Unknown Completed [facility] HIB 4 Dose Schedule Unknown Completed [facility] HIB 4 Dose Schedule Unknown Completed [facility] MMR Unknown Completed [facility] IPV Unknown Completed [facility] IPV Unknown Completed [facility] Poliovirus, Live, Oral, Trivalent Unknown Completed [facility] Poliovirus, Live, Oral, Trivalent Unknown Completed [facility] Tetanus/Diptheria Unknown Completed [facility] HPV Unknown Completed [facility] Meningococcal Polysaccharide (groups A, C, Y and W-135) conjugate vaccine (MCV4P) Unknown Completed [facility] TDAP (ADACEL) VACCINE Unknown Completed [facility] Influenza Virus Vaccine Quad .5 mL IM 6+ MO (FLUZONE/FLULAVAL/FL UARIX) Unknown Completed [facility] TDAP (ADACEL) VACCINE Unknown Completed [facility] TDAP (ADACEL) VACCINE Unknown Completed [facility] Influenza Virus Vaccine Quad .5 mL IM 6+ MO (FLUZONE/FLULAVAL/FL UARIX) Unknown Completed [facility] HPV Unknown Completed [facility] Meningococcal Polysaccharide (groups A, C, Y and W-135) conjugate vaccine (MCV4P) Unknown Completed [facility] Varicella (varivax)(chicken pox) Unknown Completed [facility] SARS-COV-2 COVID-19 VACCINE - (MODERNA) Unknown [facility]pleted [facility] SARS-COV-2 COVID-19 VACCINE - (MODERNA) Unknown Completed [facility] DTaP, Unspecified Formulation Unknown Completed [facility] DTaP, Unspecified Formulation Unknown Completed [facility] DTaP, Unspecified Formulation Unknown Completed [facility] DTaP, Unspecified Formulation Unknown Completed [facility] HEPATITIS A Unknown Completed [facility] Hep B, Adol or Pedi Dosage Unknown Completed [facility] Hep B, Adol or Pedi Dosage Unknown Completed [facility] HIB 4 Dose Schedule Unknown Completed [facility] HIB 4 Dose Schedule Unknown Completed [facility] MMR Unknown Completed [facility] IPV Unknown Completed [facility] IPV Unknown Completed [facility] Poliovirus, Live, Oral, Trivalent Unknown Completed [facility] Poliovirus, Live, Oral, Trivalent Unknown Completed [facility] Tetanus/Diptheria [facility] Influenza Virus Vaccine Quad IM, Preserv and ABX Free 6 MO-64 YRS (FLUCELVAX) Unknown Completed [facility] HPV Unknown Completed [facility] Meningococcal Polysaccharide (groups A, C, Y and W-135) conjugate vaccine (MCV4P) Unknown Completed [facility] TDAP (ADACEL) VACCINE Unknown Completed [facility] Influenza Virus Vaccine Quad .5 mL IM 6+ MO (FLUZONE/FLULAVAL/FL UARIX) Unknown Completed [facility] TDAP (ADACEL) VACCINE Unknown Completed [facility] TDAP (ADACEL) VACCINE Unknown Completed [facility] Influenza Virus Vaccine Quad .5 mL IM 6+ MO (FLUZONE/FLULAVAL/FL UARIX) Unknown Completed [facility] HPV Unknown Completed [facility] Meningococcal Polysaccharide (groups A, C, Y and W-135) conjugate vaccine (MCV4P) Unknown Completed [facility] Varicella (varivax)(chicken pox) Unknown Completed [facility] SARS-COV-2 COVID-19 VACCINE - (MODERNA) Unknown Completed [facility] SARS-COV-2 COVID-19 VACCINE - (MODERNA) Unknown Completed [facility] DTaP, Unspecified Formulation Unknown Completed [facility] DTaP, Unspecified Formulation Unknown Completed [facility] DTaP, Unspecified Formulation Unknown Completed [facility] DTaP, Unspecified Formulation Unknown Completed [facility] HEPATITIS A Unknown Completed [facility] Hep B, Adol or Pedi Dosage Unknown Completed [facility] Hep B, Adol or Pedi Dosage Unknown Completed [facility] HIB 4 Dose Schedule Unknown Completed [facility] HIB 4 Dose Schedule Unknown Completed [facility] MMR Unknown Completed [facility] IPV Unknown Completed [facility] IPV Unknown Completed [facility] Poliovirus, Live, Oral, Trivalent Unknown Completed [facility] Poliovirus, Live, Oral, Trivalent Unknown Completed [facility] Tetanus/Diptheria Unknown [facility] Completed [facility] Influenza Virus Vaccine Quad IM, Preserv and ABX Free 6 MO-64 YRS (FLUCELVAX) Unknown Completed [facility] HPV Unknown Completed [facility] Meningococcal Polysaccharide (groups A, C, Y and W-135) conjugate vaccine (MCV4P) Unknown Completed [facility] TDAP (ADACEL) VACCINE Unknown Completed [facility] Influenza Virus Vaccine Quad .5 mL IM 6+ MO (FLUZONE/FLULAVAL/FL UARIX) Unknown Completed [facility] TDAP (ADACEL) VACCINE Unknown Completed [facility] TDAP (ADACEL) VACCINE Unknown Completed [facility] Influenza Virus Vaccine Quad .5 mL IM 6+ MO (FLUZONE/FLULAVAL/FL UARIX) Unknown Completed [facility] HPV Unknown Completed [facility] Meningococcal Polysaccharide (groups A, C, Y and W-135) conjugate vaccine (MCV4P) Unknown Completed [facility] Varicella (varivax)(chicken pox) Unknown Completed [facility] SARS-COV-2 COVID-19 VACCINE - (MODERNA) Unknown Completed [facility] SARS-COV-2 COVID-19 VACCINE - (MODERNA) Unknown Completed [facility] DTaP, Unspecified Formulation Unknown Completed [facility] DTaP, Unspecified Formulation Unknown Completed [facility] DTaP, Unspecified Formulation Unknown Completed [facility] DTaP, Unspecified Formulation Unknown Completed [facility] HEPATITIS A Unknown Completed [facility] Hep B, Adol or Pedi Dosage Unknown Completed [facility] Hep B, Adol or Pedi Dosage Unknown Completed [facility] HIB 4 Dose Schedule Unknown Completed [facility] HIB 4 Dose Schedule Unknown Completed [facility] MMR Unknown Completed [facility] IPV Unknown Completed [facility] IPV Unknown Completed [facility] Poliovirus, Live, Oral, Trivalent Unknown Completed [facility] Poliovirus, Live, Oral, Trivalent Unknown Completed [facility] Tetanus/Diptheria Unknown Completed [facility] TDAP Unknown Completed [facility] Influenza Virus Vaccine Quad IM, Preserv and ABX Free 6 MO-64 YRS (FLUCELVAX) Unknown Completed [facility] HPV Unknown Completed [facility] Meningococcal Polysaccharide (groups A, C, Y and W-135) conjugate vaccine (MCV4P) Unknown Completed [facility] TDAP (ADACEL) VACCINE Unknown Completed [facility] Influenza Virus Vaccine Quad .5 mL IM 6+ MO (FLUZONE/FLULAVAL/FL UARIX) Unknown Completed [facility] TDAP (ADACEL) VACCINE Unknown Completed [facility] TDAP (ADACEL) VACCINE Unknown Completed [facility] Influenza Virus Vaccine Quad .5 mL IM 6+ MO (FLUZONE/FLULAVAL/FL UARIX) Unknown Completed [facility] HPV Unknown Completed [facility] Meningococcal Polysaccharide (groups A, C, Y and W-135) conjugate vaccine (MCV4P) Unknown Completed [facility] Varicella (varivax)(chicken pox) Unknown Completed [facility] SARS-COV-2 COVID-19 VACCINE - (MODERNA) Unknown Completed [facility] SARS-COV-2 COVID-19 VACCINE - (MODERNA) Unknown Completed [facility] DTaP, Unspecified Formulation Unknown Completed [facility] DTaP, Unspecified Formulation Unknown Completed [facility] DTaP, Unspecified Formulation Unknown Completed [facility] DTaP, Unspecified Formulation Unknown Completed [facility] HEPATITIS A Unknown Completed [facility] Hep B, Adol or Pedi Dosage Unknown Completed [facility] Hep B, Adol or Pedi Dosage Unknown Completed [facility] HIB 4 Dose Schedule Unknown Completed [facility] HIB 4 Dose Schedule Unknown Completed [facility] MMR Unknown Completed [facility] IPV Unknown Completed [facility] IPV Unknown Completed [facility] Poliovirus, Live, Oral, Trivalent Unknown Completed [facility] Poliovirus, Live, Oral, Trivalent Unknown Completed [facility] Tetanus/Diptheria [facility] Influenza Virus Vaccine Quad IM, Preserv and ABX Free 6 MO-64 YRS (FLUCELVAX) Unknown Completed [facility] HPV Unknown Completed [facility] Meningococcal Polysaccharide (groups A, C, Y and W-135) conjugate vaccine (MCV4P) Unknown Completed [facility] TDAP (ADACEL) VACCINE Unknown Completed [facility] Influenza Virus Vaccine Quad .5 mL IM 6+ MO (FLUZONE/FLULAVAL/FL UARIX) Unknown Completed [facility] TDAP (ADACEL) VACCINE Unknown Completed [facility] TDAP (ADACEL) VACCINE Unknown Completed [facility] Influenza Virus Vaccine Quad .5 mL IM 6+ MO (FLUZONE/FLULAVAL/FL UARIX) Unknown Completed [facility] HPV Unknown Completed [facility] Meningococcal Polysaccharide (groups A, C, Y and W-135) conjugate vaccine (MCV4P) Unknown Completed [facility] Varicella (varivax)(chicken pox) Unknown Completed [facility] SARS-COV-2 COVID-19 VACCINE - (MODERNA) Unknown [facility]pleted [facility] SARS-COV-2 COVID-19 VACCINE - (MODERNA) Unknown Completed [facility] DTaP, Unspecified Formulation Unknown Completed [facility] DTaP, Unspecified Formulation Unknown Completed [facility] DTaP, Unspecified Formulation Unknown Completed [facility] DTaP, Unspecified Formulation Unknown Completed [facility] HEPATITIS A Unknown Completed [facility] Hep B, Adol or Pedi Dosage Unknown Completed [facility] Hep B, Adol or Pedi Dosage Unknown Completed [facility] HIB 4 Dose Schedule Unknown Completed [facility] HIB 4 Dose Schedule Unknown Completed [facility] MMR Unknown Completed [facility] IPV Unknown Completed [facility] IPV Unknown Completed [facility] Poliovirus, Live, Oral, Trivalent Unknown Completed [facility] Poliovirus, Live, Oral, Trivalent Unknown Completed [facility] Tetanus/Diptheria [facility] Completed [facility] Influenza Virus Vaccine Quad IM, Preserv and ABX Free 6 MO-64 YRS (FLUCELVAX) Unknown Completed [facility] HPV Unknown Completed [facility] Meningococcal Polysaccharide (groups A, C, Y and W-135) conjugate vaccine (MCV4P) Unknown Completed [facility] TDAP (ADACEL) VACCINE Unknown Completed [facility] Influenza Virus Vaccine Quad .5 mL IM 6+ MO (FLUZONE/FLULAVAL/FL UARIX) Unknown Completed [facility] TDAP (ADACEL) VACCINE Unknown Completed [facility] TDAP (ADACEL) VACCINE Unknown Completed [facility] Influenza Virus Vaccine Quad .5 mL IM 6+ MO (FLUZONE/FLULAVAL/FL UARIX) Unknown Completed [facility] HPV Unknown Completed [facility] Meningococcal Polysaccharide (groups A, C, Y and W-135) conjugate vaccine (MCV4P) Unknown Completed [facility] Varicella (varivax)(chicken pox) Unknown Completed [facility] SARS-COV-2 COVID-19 VACCINE - (MODERNA) [facility] SARS-COV-2 COVID-19 VACCINE - (MODERNA) Unknown [facility] DTaP, Unspecified Formulation Unknown Completed [facility] DTaP, Unspecified Formulation Unknown Completed [facility] DTaP, Unspecified Formulation Unknown Completed [facility] DTaP, Unspecified Formulation Unknown Completed [facility] HEPATITIS A Unknown [facility]pleted [facility] Hep B, Adol or Pedi Dosage Unknown Completed [facility] Hep B, Adol or Pedi Dosage Unknown Completed [facility] HIB 4 Dose Schedule Unknown Completed [facility] HIB 4 Dose Schedule Unknown Completed [facility] MMR Unknown Completed [facility] IPV Unknown Completed [facility] IPV Unknown Completed [facility] Poliovirus, Live, Oral, Trivalent Unknown Completed [facility] Poliovirus, Live, Oral, Trivalent Unknown Completed [facility] Tetanus/Diptheria Unknown Completed [facility] TDAP Unknown Completed [facility] Influenza Virus Vaccine Quad IM, Preserv and ABX Free 6 MO-64 YRS (FLUCELVAX) Unknown Completed [facility] HPV Unknown Completed [facility] Meningococcal Polysaccharide (groups A, C, Y and W-135) conjugate vaccine (MCV4P) Unknown Completed [facility] TDAP (ADACEL) VACCINE Unknown Completed [facility] Influenza Virus Vaccine Quad .5 mL IM 6+ MO (FLUZONE/FLULAVAL/FL UARIX) Unknown Completed [facility] TDAP (ADACEL) VACCINE Unknown Completed [facility] TDAP (ADACEL) VACCINE Unknown Completed [facility] Influenza Virus Vaccine Quad .5 mL IM 6+ MO (FLUZONE/FLULAVAL/FL UARIX) Unknown Completed [facility] HPV Unknown Completed [facility] Meningococcal Polysaccharide (groups A, C, Y and W-135) conjugate vaccine (MCV4P) Unknown Completed [facility] Varicella (varivax)(chicken pox) Unknown Completed [facility] SARS-COV-2 COVID-19 VACCINE - (MODERNA) Unknown [facility] SARS-COV-2 COVID-19 VACCINE - (MODERNA) Unknown [facility] DTaP, Unspecified Formulation Unknown Completed [facility] DTaP, Unspecified Formulation Unknown Completed [facility] DTaP, Unspecified Formulation Unknown Completed [facility] DTaP, Unspecified Formulation Unknown Completed [facility] HEPATITIS A Unknown [facility] Hep B, Adol or Pedi Dosage Unknown Completed [facility] Hep B, Adol or Pedi Dosage Unknown Completed [facility] HIB 4 Dose Schedule Unknown Completed [facility] HIB 4 Dose Schedule Unknown Completed [facility] MMR Unknown Completed [facility] IPV Unknown Completed [facility] IPV Unknown Completed [facility] Poliovirus, Live, Oral, Trivalent Unknown Completed [facility] Poliovirus, Live, Oral, Trivalent Unknown Completed [facility] Tetanus/Diptheria Unknown Completed [facility] TDAP Unknown Completed [facility] Influenza Virus Vaccine Quad IM, Preserv and ABX Free 6 MO-64 YRS (FLUCELVAX) Unknown Completed [facility] HPV Unknown Completed [facility] Meningococcal Polysaccharide (groups A, C, Y and W-135) conjugate vaccine (MCV4P) Unknown Completed [facility] TDAP (ADACEL) VACCINE Unknown Completed [facility] Influenza Virus Vaccine Quad .5 mL IM 6+ MO (FLUZONE/FLULAVAL/FL UARIX) Unknown Completed [facility] TDAP (ADACEL) VACCINE Unknown Completed [facility] TDAP (ADACEL) VACCINE Unknown Completed [facility] Influenza Virus Vaccine Quad .5 mL IM 6+ MO (FLUZONE/FLULAVAL/FL UARIX) Unknown Completed [facility] HPV Unknown Completed [facility] Meningococcal Polysaccharide (groups A, C, Y and W-135) conjugate vaccine (MCV4P) Unknown Completed [facility] Varicella (varivax)(chicken pox) Unknown Completed [facility] SARS-COV-2 COVID-19 VACCINE - (MODERNA) Unknown [facility] SARS-COV-2 COVID-19 VACCINE - (MODERNA) Unknown [facility] DTaP, Unspecified Formulation Unknown Completed [facility] DTaP, Unspecified Formulation Unknown Completed [facility] DTaP, Unspecified Formulation Unknown Completed [facility] DTaP, Unspecified Formulation Unknown Completed [facility] HEPATITIS A Unknown [facility] Hep B, Adol or Pedi Dosage Unknown Completed [facility] Hep B, Adol or Pedi Dosage Unknown Completed [facility] HIB 4 Dose Schedule Unknown Completed [facility] HIB 4 Dose Schedule Unknown Completed [facility] MMR Unknown Completed [facility] IPV Unknown Completed [facility] IPV Unknown Completed [facility] Poliovirus, Live, Oral, Trivalent Unknown Completed [facility] Poliovirus, Live, Oral, Trivalent Unknown Completed [facility] Tetanus/Diptheria Unknown Completed [facility] TDAP Unknown Completed [facility] Influenza Virus Vaccine Quad IM, Preserv and ABX Free 6 MO-64 YRS (FLUCELVAX) Unknown Completed [facility] HPV Unknown Completed [facility] Meningococcal Polysaccharide (groups A, C, Y and W-135) conjugate vaccine (MCV4P) Unknown Completed [facility] TDAP (ADACEL) VACCINE Unknown Completed [facility] Influenza Virus Vaccine Quad .5 mL IM 6+ MO (FLUZONE/FLULAVAL/FL UARIX) Unknown Completed [facility] TDAP (ADACEL) VACCINE Unknown Completed [facility] TDAP (ADACEL) VACCINE Unknown Completed [facility] Influenza Virus Vaccine Quad .5 mL IM 6+ MO (FLUZONE/FLULAVAL/FL UARIX) Unknown Completed [facility] HPV Unknown Completed [facility] Meningococcal Polysaccharide (groups A, C, Y and W-135) conjugate vaccine (MCV4P) Unknown Completed [facility] Varicella (varivax)(chicken pox) Unknown Completed [facility] SARS-COV-2 COVID-19 VACCINE - (MODERNA) Unknown [facility] SARS-COV-2 COVID-19 VACCINE - (MODERNA) Unknown [facility]pleted [facility] DTaP, Unspecified Formulation Unknown Completed [facility] DTaP, Unspecified Formulation Unknown Completed [facility] DTaP, Unspecified Formulation Unknown Completed [facility] DTaP, Unspecified Formulation Unknown Completed [facility] HEPATITIS A Unknown [facility]pleted [facility] Hep B, Adol or Pedi Dosage Unknown Completed [facility] Hep B, Adol or Pedi Dosage Unknown Completed [facility] HIB 4 Dose Schedule Unknown Completed [facility] HIB 4 Dose Schedule Unknown Completed [facility] MMR Unknown Completed [facility] IPV Unknown Completed [facility] IPV Unknown Completed [facility] Poliovirus, Live, Oral, Trivalent Unknown Completed [facility] Poliovirus, Live, Oral, Trivalent Unknown Completed [facility]anus[facility]heria [facility] Influenza Virus Vaccine Quad IM, Preserv and ABX Free 6 MO-64 YRS (FLUCELVAX) Unknown Completed [facility] HPV Unknown Completed [facility] Meningococcal Polysaccharide (groups A, C, Y and W-135) conjugate vaccine (MCV4P) Unknown Completed [facility] TDAP (ADACEL) VACCINE Unknown Completed [facility] Influenza Virus Vaccine Quad .5 mL IM 6+ MO (FLUZONE/FLULAVAL/FL UARIX) Unknown Completed [facility] TDAP (ADACEL) VACCINE Unknown Completed [facility] TDAP (ADACEL) VACCINE Unknown Completed [facility] Influenza Virus Vaccine Quad .5 mL IM 6+ MO (FLUZONE/FLULAVAL/FL UARIX) Unknown Completed [facility] HPV Unknown Completed [facility] Meningococcal Polysaccharide (groups A, C, Y and W-135) conjugate vaccine (MCV4P) Unknown Completed [facility] Varicella (varivax)(chicken pox) Unknown Completed [facility] SARS-COV-2 COVID-19 VACCINE - (MODERNA) Unknown [facility] SARS-COV-2 COVID-19 VACCINE - (MODERNA) Unknown [facility]pleted [facility] DTaP, Unspecified Formulation Unknown Completed [facility] DTaP, Unspecified Formulation Unknown Completed [facility] DTaP, Unspecified Formulation Unknown Completed [facility] DTaP, Unspecified Formulation Unknown Completed [facility] HEPATITIS A Unknown [facility]pleted [facility] Hep B, Adol or Pedi Dosage Unknown Completed [facility] Hep B, Adol or Pedi Dosage Unknown Completed [facility] HIB 4 Dose Schedule Unknown Completed [facility] HIB 4 Dose Schedule Unknown Completed [facility] MMR Unknown Completed [facility] IPV Unknown Completed [facility] IPV Unknown Completed [facility] Poliovirus, Live, Oral, Trivalent Unknown Completed [facility] Poliovirus, Live, Oral, Trivalent Unknown Completed [facility] Tetanus/Diptheria [facility] Com[facility] Influenza Virus Vaccine Quad IM, Preserv and ABX Free 6 MO-64 YRS (FLUCELVAX) Unknown Completed [facility] HPV Unknown Completed [facility] Meningococcal Polysaccharide (groups A, C, Y and W-135) conjugate vaccine (MCV4P) Unknown Completed [facility] TDAP (ADACEL) VACCINE Unknown Completed [facility] Influenza Virus Vaccine Quad .5 mL IM 6+ MO (FLUZONE/FLULAVAL/FL UARIX) Unknown Completed [facility] TDAP (ADACEL) VACCINE Unknown Completed [facility] TDAP (ADACEL) VACCINE Unknown Completed [facility] Influenza Virus Vaccine Quad .5 mL IM 6+ MO (FLUZONE/FLULAVAL/FL UARIX) Unknown Completed [facility] HPV Unknown Completed [facility] Meningococcal Polysaccharide (groups A, C, Y and W-135) conjugate vaccine (MCV4P) Unknown Completed [facility] Varicella (varivax)(chicken pox) Unknown Completed [facility] SARS-COV-2 COVID-19 VACCINE - (MODERNA) Unknown [facility] SARS-COV-2 COVID-19 VACCINE - (MODERNA) Unknown [facility]pleted [facility] DTaP, Unspecified Formulation Unknown Completed [facility] DTaP, Unspecified Formulation Unknown Completed [facility] DTaP, Unspecified Formulation Unknown Completed [facility] DTaP, Unspecified Formulation Unknown Completed [facility] HEPATITIS A Unknown [facility]pleted [facility] Hep B, Adol or Pedi Dosage Unknown Completed [facility] Hep B, Adol or Pedi Dosage Unknown Completed [facility] HIB 4 Dose Schedule Unknown Completed [facility] HIB 4 Dose Schedule Unknown Completed [facility] MMR Unknown Completed [facility] IPV Unknown Completed [facility] IPV Unknown Completed [facility] Poliovirus, Live, Oral, Trivalent Unknown Completed [facility] Poliovirus, Live, Oral, Trivalent Unknown Completed [facility] Tetanus/Diptheria [facility] Influenza Virus Vaccine Quad IM, Preserv and ABX Free 6 MO-64 YRS (FLUCELVAX) Unknown Completed [facility] HPV Unknown Completed [facility] Meningococcal Polysaccharide (groups A, C, Y and W-135) conjugate vaccine (MCV4P) Unknown Completed [facility] TDAP (ADACEL) VACCINE Unknown Completed [facility] Influenza Virus Vaccine Quad .5 mL IM 6+ MO (FLUZONE/FLULAVAL/FL UARIX) Unknown Completed [facility] TDAP (ADACEL) VACCINE Unknown Completed [facility] TDAP (ADACEL) VACCINE Unknown Completed [facility] Influenza Virus Vaccine Quad .5 mL IM 6+ MO (FLUZONE/FLULAVAL/FL UARIX) Unknown Completed [facility] HPV Unknown Completed [facility] Meningococcal Polysaccharide (groups A, C, Y and W-135) conjugate vaccine (MCV4P) Unknown Completed [facility] Varicella (varivax)(chicken pox) Unknown Completed [facility] SARS-COV-2 COVID-19 VACCINE - (MODERNA) Unknown [facility]pleted [facility] SARS-COV-2 COVID-19 VACCINE - (MODERNA) Unknown [facility]pleted [facility] DTaP, Unspecified Formulation Unknown Completed [facility] DTaP, Unspecified Formulation Unknown Completed [facility] DTaP, Unspecified Formulation Unknown Completed [facility] DTaP, Unspecified Formulation Unknown Completed [facility] HEPATITIS A Unknown [facility]pleted [facility] Hep B, Adol or Pedi Dosage Unknown Completed [facility] Hep B, Adol or Pedi Dosage Unknown Completed [facility] HIB 4 Dose Schedule Unknown Completed [facility] HIB 4 Dose Schedule Unknown Completed [facility] MMR Unknown Completed [facility] IPV Unknown Completed [facility] IPV Unknown Completed [facility] Poliovirus, Live, Oral, Trivalent Unknown Completed [facility] Poliovirus, Live, Oral, Trivalent Unknown Completed [facility] Tetanus/Diptheria Unknown Completed [facility] TDAP Unknown Completed [facility] Influenza Virus Vaccine Quad IM, Preserv and ABX Free 6 MO-64 YRS (FLUCELVAX) Unknown Completed [facility] HPV Unknown Completed [facility] Meningococcal Polysaccharide (groups A, C, Y and W-135) conjugate vaccine (MCV4P) Unknown Completed [facility] TDAP (ADACEL) VACCINE Unknown Completed [facility] Influenza Virus Vaccine Quad .5 mL IM 6+ MO (FLUZONE/FLULAVAL/FL UARIX) Unknown Completed [facility] TDAP (ADACEL) VACCINE Unknown Completed [facility] TDAP (ADACEL) VACCINE Unknown Completed [facility] Influenza Virus Vaccine Quad .5 mL IM 6+ MO (FLUZONE/FLULAVAL/FL UARIX) Unknown Completed [facility] HPV Unknown Completed [facility] Meningococcal Polysaccharide (groups A, C, Y and W-135) conjugate vaccine (MCV4P) Unknown Completed [facility] Varicella (varivax)(chicken pox) Unknown Completed [facility] SARS-COV-2 COVID-19 VACCINE - (MODERNA) Unknown [facility] SARS-COV-2 COVID-19 VACCINE - (MODERNA) Unknown [facility]pleted [facility] DTaP, Unspecified Formulation Unknown Completed [facility] DTaP, Unspecified Formulation Unknown Completed [facility] DTaP, Unspecified Formulation Unknown Completed [facility] DTaP, Unspecified Formulation Unknown Completed [facility] HEPATITIS A Unknown [facility]pleted [facility] Hep B, Adol or Pedi Dosage Unknown Completed [facility] Hep B, Adol or Pedi Dosage Unknown Completed [facility] HIB 4 Dose Schedule Unknown Completed [facility] HIB 4 Dose Schedule Unknown Completed [facility] MMR Unknown Completed [facility] IPV Unknown Completed [facility] IPV Unknown Completed [facility] Poliovirus, Live, Oral, Trivalent Unknown Completed [facility] Poliovirus, Live, Oral, Trivalent Unknown Completed [facility] Tetanus/Diptheria Unknown [facility] Completed [facility] Influenza Virus Vaccine Quad IM, Preserv and ABX Free 6 MO-64 YRS (FLUCELVAX) Unknown Completed [facility] HPV Unknown Completed [facility] Meningococcal Polysaccharide (groups A, C, Y and W-135) conjugate vaccine (MCV4P) Unknown Completed [facility] TDAP (ADACEL) VACCINE Unknown Completed [facility] Influenza Virus Vaccine Quad .5 mL IM 6+ MO (FLUZONE/FLULAVAL/FL UARIX) Unknown Completed [facility] TDAP (ADACEL) VACCINE Unknown Completed [facility] TDAP (ADACEL) VACCINE Unknown Completed [facility] Influenza Virus Vaccine Quad .5 mL IM 6+ MO (FLUZONE/FLULAVAL/FL UARIX) Unknown Completed [facility] HPV Unknown Completed [facility] Meningococcal Polysaccharide (groups A, C, Y and W-135) conjugate vaccine (MCV4P) Unknown Completed [facility] Varicella (varivax)(chicken pox) Unknown Completed [facility] SARS-COV-2 COVID-19 VACCINE - (MODERNA) Unknown [facility]pleted [facility] SARS-COV-2 COVID-19 VACCINE - (MODERNA) Unknown [facility]pleted [facility] DTaP, Unspecified Formulation Unknown Completed [facility] DTaP, Unspecified Formulation Unknown Completed [facility] DTaP, Unspecified Formulation Unknown Completed [facility] DTaP, Unspecified Formulation Unknown Completed [facility] HEPATITIS A Unknown Completed [facility] Hep B, Adol or Pedi Dosage Unknown Completed [facility] Hep B, Adol or Pedi Dosage Unknown Completed [facility] HIB 4 Dose Schedule Unknown Completed [facility] HIB 4 Dose Schedule Unknown Completed [facility] MMR Unknown Completed [facility] IPV Unknown Completed [facility] IPV Unknown Completed [facility] Poliovirus, Live, Oral, Trivalent Unknown Completed [facility] Poliovirus, Live, Oral, Trivalent Unknown Completed [facility] Tetanus/Diptheria [facility] Com[facility] Influenza Virus Vaccine Quad IM, Preserv and ABX Free 6 MO-64 YRS (FLUCELVAX) Unknown Completed [facility] HPV Unknown Completed [facility] Meningococcal Polysaccharide (groups A, C, Y and W-135) conjugate vaccine (MCV4P) Unknown Completed [facility] TDAP (ADACEL) VACCINE Unknown Completed [facility] Influenza Virus Vaccine Quad .5 mL IM 6+ MO (FLUZONE/FLULAVAL/FL UARIX) Unknown Completed [facility] TDAP (ADACEL) VACCINE Unknown Completed [facility] TDAP (ADACEL) VACCINE Unknown Completed [facility] Influenza Virus Vaccine Quad .5 mL IM 6+ MO (FLUZONE/FLULAVAL/FL UARIX) Unknown Completed [facility] HPV Unknown Completed [facility] Meningococcal Polysaccharide (groups A, C, Y and W-135) conjugate vaccine (MCV4P) Unknown Completed [facility] Varicella (varivax)(chicken pox) Unknown Completed [facility] SARS-COV-2 COVID-19 VACCINE - (MODERNA) Unknown [facility]pleted [facility] SARS-COV-2 COVID-19 VACCINE - (MODERNA) Unknown [facility]pleted [facility] DTaP, Unspecified Formulation Unknown Completed [facility] DTaP, Unspecified Formulation Unknown Completed [facility] DTaP, Unspecified Formulation Unknown Completed [facility] DTaP, Unspecified Formulation Unknown Completed [facility] HEPATITIS A Unknown [facility] B, Adol or Pedi Dosage Unknown Completed [facility] Hep B, Adol or Pedi Dosage Unknown Completed [facility] HIB 4 Dose Schedule Unknown Completed [facility] HIB 4 Dose Schedule Unknown Completed [facility] MMR Unknown Completed [facility] IPV Unknown Completed [facility] IPV Unknown Completed [facility] Poliovirus, Live, Oral, Trivalent Unknown Completed [facility] Poliovirus, Live, Oral, Trivalent Unknown Completed [facility] Tetanus[facility]heria [facility] Influenza Virus Vaccine Quad IM, Preserv and ABX Free 6 MO-64 YRS (FLUCELVAX) Unknown Completed [facility] HPV Unknown Completed [facility] Meningococcal Polysaccharide (groups A, C, Y and W-135) conjugate vaccine (MCV4P) Unknown Completed [facility] TDAP (ADACEL) VACCINE Unknown Completed [facility] Influenza Virus Vaccine Quad .5 mL IM 6+ MO (FLUZONE/FLULAVAL/FL UARIX) Unknown Completed [facility] TDAP (ADACEL) VACCINE Unknown Completed [facility] TDAP (ADACEL) VACCINE Unknown Completed [facility] Influenza Virus Vaccine Quad .5 mL IM 6+ MO (FLUZONE/FLULAVAL/FL UARIX) Unknown Completed [facility] HPV Unknown Completed [facility] Meningococcal Polysaccharide (groups A, C, Y and W-135) conjugate vaccine (MCV4P) Unknown Completed [facility] Varicella (varivax)(chicken pox) Unknown Completed [facility] SARS-COV-2 COVID-19 VACCINE - (MODERNA) Unknown [facility] SARS-COV-2 COVID-19 VACCINE - (MODERNA) Unknown [facility]pleted [facility] DTaP, Unspecified Formulation Unknown Completed [facility] DTaP, Unspecified Formulation Unknown Completed [facility] DTaP, Unspecified Formulation Unknown Completed [facility] DTaP, Unspecified Formulation Unknown Completed [facility] HEPATITIS A Unknown [facility]pleted [facility] Hep B, Adol or Pedi Dosage Unknown Completed [facility] Hep B, Adol or Pedi Dosage Unknown Completed [facility] HIB 4 Dose Schedule Unknown Completed [facility] HIB 4 Dose Schedule Unknown Completed [facility] MMR Unknown Completed [facility] IPV Unknown Completed [facility] IPV Unknown Completed [facility] Poliovirus, Live, Oral, Trivalent Unknown Completed [facility] Poliovirus, Live, Oral, Trivalent Unknown Completed [facility] Tetanus/Diptheria [facility] Influenza Virus Vaccine Quad IM, Preserv and ABX Free 6 MO-64 YRS (FLUCELVAX) Unknown Completed [facility] HPV Unknown Completed [facility] Meningococcal Polysaccharide (groups A, C, Y and W-135) conjugate vaccine (MCV4P) Unknown Completed [facility] TDAP (ADACEL) VACCINE Unknown Completed [facility] Influenza Virus Vaccine Quad .5 mL IM 6+ MO (FLUZONE/FLULAVAL/FL UARIX) Unknown Completed [facility] TDAP (ADACEL) VACCINE Unknown Completed [facility] TDAP (ADACEL) VACCINE Unknown Completed [facility] Influenza Virus Vaccine Quad .5 mL IM 6+ MO (FLUZONE/FLULAVAL/FL UARIX) Unknown Completed [facility] HPV Unknown Completed [facility] Meningococcal Polysaccharide (groups A, C, Y and W-135) conjugate vaccine (MCV4P) Unknown Completed [facility] Varicella (varivax)(chicken pox) Unknown Completed [facility] SARS-COV-2 COVID-19 VACCINE - (MODERNA) Unknown [facility] SARS-COV-2 COVID-19 VACCINE - (MODERNA) Unknown [facility]pleted [facility] DTaP, Unspecified Formulation Unknown Completed [facility] DTaP, Unspecified Formulation Unknown Completed [facility] DTaP, Unspecified Formulation Unknown Completed [facility] DTaP, Unspecified Formulation Unknown Completed [facility] HEPATITIS A Unknown [facility]pleted [facility] Hep B, Adol or Pedi Dosage Unknown Completed [facility] Hep B, Adol or Pedi Dosage Unknown Completed [facility] HIB 4 Dose Schedule Unknown Completed [facility] HIB 4 Dose Schedule Unknown Completed [facility] MMR Unknown Completed [facility] IPV Unknown Completed [facility] IPV Unknown Completed [facility] Poliovirus, Live, Oral, Trivalent Unknown Completed [facility] Poliovirus, Live, Oral, Trivalent Unknown Completed [facility] Tetanus/Diptheria Unknown Completed [facility] TDAP Unknown Completed [facility] Influenza Virus Vaccine Quad IM, Preserv and ABX Free 6 MO-64 YRS (FLUCELVAX) Unknown Completed [facility] HPV Unknown Completed [facility] Meningococcal Polysaccharide (groups A, C, Y and W-135) conjugate vaccine (MCV4P) Unknown Completed [facility] TDAP (ADACEL) VACCINE Unknown Completed [facility] Influenza Virus Vaccine Quad .5 mL IM 6+ MO (FLUZONE/FLULAVAL/FL UARIX) Unknown Completed [facility] TDAP (ADACEL) VACCINE Unknown Completed [facility] TDAP (ADACEL) VACCINE Unknown Completed [facility] Influenza Virus Vaccine Quad .5 mL IM 6+ MO (FLUZONE/FLULAVAL/FL UARIX) Unknown Completed [facility] HPV Unknown Completed [facility] Meningococcal Polysaccharide (groups A, C, Y and W-135) conjugate vaccine (MCV4P) Unknown Completed [facility] Varicella (varivax)(chicken pox) Unknown Completed [facility] SARS-COV-2 COVID-19 VACCINE - (MODERNA) Unknown [facility]pleted [facility] SARS-COV-2 COVID-19 VACCINE - (MODERNA) Unknown Completed [facility] DTaP, Unspecified Formulation Unknown Completed [facility] DTaP, Unspecified Formulation Unknown Completed [facility] DTaP, Unspecified Formulation Unknown Completed [facility] DTaP, Unspecified Formulation Unknown Completed [facility] HEPATITIS A Unknown [facility]pleted [facility] Hep B, Adol or Pedi Dosage Unknown Completed [facility] Hep B, Adol or Pedi Dosage Unknown Completed [facility] HIB 4 Dose Schedule Unknown Completed [facility] HIB 4 Dose Schedule Unknown Completed [facility] MMR Unknown Completed [facility] IPV Unknown Completed [facility] IPV Unknown Completed [facility] Poliovirus, Live, Oral, Trivalent Unknown Completed [facility] Poliovirus, Live, Oral, Trivalent Unknown Completed [facility] Tetanus/Diptheria Unknown Completed [facility] TDAP Unknown Completed [facility] Influenza Virus Vaccine Quad IM, Preserv and ABX Free 6 MO-64 YRS (FLUCELVAX) Unknown Completed [facility] HPV Unknown Completed [facility] Meningococcal Polysaccharide (groups A, C, Y and W-135) conjugate vaccine (MCV4P) Unknown Completed [facility] TDAP (ADACEL) VACCINE Unknown Completed [facility] Influenza Virus Vaccine Quad .5 mL IM 6+ MO (FLUZONE/FLULAVAL/FL UARIX) Unknown Completed [facility] TDAP (ADACEL) VACCINE Unknown Completed [facility] TDAP (ADACEL) VACCINE Unknown Completed [facility] Influenza Virus Vaccine Quad .5 mL IM 6+ MO (FLUZONE/FLULAVAL/FL UARIX) Unknown Completed [facility] HPV Unknown Completed [facility] Meningococcal Polysaccharide (groups A, C, Y and W-135) conjugate vaccine (MCV4P) Unknown Completed [facility] Varicella (varivax)(chicken pox) Unknown Completed [facility] SARS-COV-2 COVID-19 VACCINE - (MODERNA) Unknown [facility]pleted [facility] SARS-COV-2 COVID-19 VACCINE - (MODERNA) Unknown Completed [facility] DTaP, Unspecified Formulation Unknown Completed [facility] DTaP, Unspecified Formulation Unknown Completed [facility] DTaP, Unspecified Formulation Unknown Completed [facility] DTaP, Unspecified Formulation Unknown Completed [facility] HEPATITIS A Unknown [facility]pleted [facility] Hep B, Adol or Pedi Dosage Unknown Completed [facility] Hep B, Adol or Pedi Dosage Unknown Completed [facility] HIB 4 Dose Schedule Unknown Completed [facility] HIB 4 Dose Schedule Unknown Completed [facility] MMR Unknown Completed [facility] IPV Unknown Completed [facility] IPV Unknown Completed [facility] Poliovirus, Live, Oral, Trivalent Unknown Completed [facility] Poliovirus, Live, Oral, Trivalent Unknown Completed [facility]anus[facility]Diptheria [facility] Influenza Virus Vaccine Quad IM, Preserv and ABX Free 6 MO-64 YRS (FLUCELVAX) Unknown Completed [facility] HPV Unknown Completed [facility] Meningococcal Polysaccharide (groups A, C, Y and W-135) conjugate vaccine (MCV4P) Unknown Completed [facility] TDAP (ADACEL) VACCINE Unknown Completed [facility] Influenza Virus Vaccine Quad .5 mL IM 6+ MO (FLUZONE/FLULAVAL/FL UARIX) Unknown Completed [facility] TDAP (ADACEL) VACCINE Unknown Completed [facility] TDAP (ADACEL) VACCINE Unknown Completed [facility] Influenza Virus Vaccine Quad .5 mL IM 6+ MO (FLUZONE/FLULAVAL/FL UARIX) Unknown Completed [facility] HPV Unknown Completed [facility] Meningococcal Polysaccharide (groups A, C, Y and W-135) conjugate vaccine (MCV4P) Unknown Completed [facility] Varicella (varivax)(chicken pox) Unknown Completed [facility] SARS-COV-2 COVID-19 VACCINE - (MODERNA) Unknown [facility]pleted [facility] SARS-COV-2 COVID-19 VACCINE - (MODERNA) Unknown Completed [facility] DTaP, Unspecified Formulation Unknown Completed [facility] DTaP, Unspecified Formulation Unknown Completed [facility] DTaP, Unspecified Formulation Unknown Completed [facility] DTaP, Unspecified Formulation Unknown Completed [facility] HEPATITIS A Unknown [facility]pleted [facility] Hep B, Adol or Pedi Dosage Unknown Completed [facility] Hep B, Adol or Pedi Dosage Unknown Completed [facility] HIB 4 Dose Schedule Unknown Completed [facility] HIB 4 Dose Schedule Unknown Completed [facility] MMR Unknown Completed [facility] IPV Unknown Completed [facility] IPV Unknown Completed [facility] Poliovirus, Live, Oral, Trivalent Unknown Completed [facility] Poliovirus, Live, Oral, Trivalent Unknown Completed [facility] Tetanus/Diptheria [facility] Influenza Virus Vaccine Quad IM, Preserv and ABX Free 6 MO-64 YRS (FLUCELVAX) Unknown Completed [facility] HPV Unknown Completed [facility] Meningococcal Polysaccharide (groups A, C, Y and W-135) conjugate vaccine (MCV4P) Unknown Completed [facility] TDAP (ADACEL) VACCINE Unknown Completed [facility] Influenza Virus Vaccine Quad .5 mL IM 6+ MO (FLUZONE/FLULAVAL/FL UARIX) Unknown Completed [facility] TDAP (ADACEL) VACCINE Unknown Completed [facility] TDAP (ADACEL) VACCINE Unknown Completed [facility] Influenza Virus Vaccine Quad .5 mL IM 6+ MO (FLUZONE/FLULAVAL/FL UARIX) Unknown Completed [facility] HPV Unknown Completed [facility] Meningococcal Polysaccharide (groups A, C, Y and W-135) conjugate vaccine (MCV4P) Unknown Completed [facility] Varicella (varivax)(chicken pox) Unknown Completed [facility] SARS-COV-2 COVID-19 VACCINE - (MODERNA) Unknown [facility]pleted [facility] SARS-COV-2 COVID-19 VACCINE - (MODERNA) Unknown Completed [facility] DTaP, Unspecified Formulation Unknown Completed [facility] DTaP, Unspecified Formulation Unknown Completed [facility] DTaP, Unspecified Formulation Unknown Completed [facility] DTaP, Unspecified Formulation Unknown Completed [facility] HEPATITIS A Unknown Completed [facility] Hep B, Adol or Pedi Dosage Unknown Completed [facility] Hep B, Adol or Pedi Dosage Unknown Completed [facility] HIB 4 Dose Schedule Unknown Completed [facility] HIB 4 Dose Schedule Unknown Completed [facility] MMR Unknown Completed [facility] IPV Unknown Completed [facility] IPV Unknown Completed [facility] Poliovirus, Live, Oral, Trivalent Unknown Completed [facility] Poliovirus, Live, Oral, Trivalent Unknown Completed [facility] Tetanus/Diptheria [facility] Influenza Virus Vaccine Quad IM, Preserv and ABX Free 6 MO-64 YRS (FLUCELVAX) Unknown Completed [facility] HPV Unknown Completed [facility] Meningococcal Polysaccharide (groups A, C, Y and W-135) conjugate vaccine (MCV4P) Unknown Completed [facility] TDAP (ADACEL) VACCINE Unknown Completed [facility] Influenza Virus Vaccine Quad .5 mL IM 6+ MO (FLUZONE/FLULAVAL/FL UARIX) Unknown Completed [facility] TDAP (ADACEL) VACCINE Unknown Completed [facility] TDAP (ADACEL) VACCINE Unknown Completed [facility] Influenza Virus Vaccine Quad .5 mL IM 6+ MO (FLUZONE/FLULAVAL/FL UARIX) Unknown Completed [facility] HPV Unknown Completed [facility] Meningococcal Polysaccharide (groups A, C, Y and W-135) conjugate vaccine (MCV4P) Unknown Completed [facility] Varicella (varivax)(chicken pox) Unknown Completed [facility] SARS-COV-2 COVID-19 VACCINE - (MODERNA) Unknown [facility]pleted [facility] SARS-COV-2 COVID-19 VACCINE - (MODERNA) Unknown Completed [facility] DTaP, Unspecified Formulation Unknown Completed [facility] DTaP, Unspecified Formulation Unknown Completed [facility] DTaP, Unspecified Formulation Unknown Completed [facility] DTaP, Unspecified Formulation Unknown Completed [facility] HEPATITIS A Unknown Completed [facility] Hep B, Adol or Pedi Dosage Unknown Completed [facility] Hep B, Adol or Pedi Dosage Unknown Completed [facility] HIB 4 Dose Schedule Unknown Completed [facility] HIB 4 Dose Schedule Unknown Completed [facility] MMR Unknown Completed [facility] IPV Unknown Completed [facility] IPV Unknown Completed [facility] Poliovirus, Live, Oral, Trivalent Unknown Completed [facility] Poliovirus, Live, Oral, Trivalent Unknown Completed [facility] Tetanus/Diptheria Unknown Completed [facility] TDAP Unknown Completed [facility] Influenza Virus Vaccine Quad IM, Preserv and ABX Free 6 MO-64 YRS (FLUCELVAX) Unknown Completed [facility] HPV Unknown Completed [facility] Meningococcal Polysaccharide (groups A, C, Y and W-135) conjugate vaccine (MCV4P) Unknown Completed [facility] TDAP (ADACEL) VACCINE Unknown Completed [facility] Influenza Virus Vaccine Quad .5 mL IM 6+ MO (FLUZONE/FLULAVAL/FL UARIX) Unknown Completed [facility] TDAP (ADACEL) VACCINE Unknown Completed [facility] TDAP (ADACEL) VACCINE Unknown Completed [facility] Influenza Virus Vaccine Quad .5 mL IM 6+ MO (FLUZONE/FLULAVAL/FL UARIX) Unknown Completed [facility] HPV Unknown Completed [facility] Meningococcal Polysaccharide (groups A, C, Y and W-135) conjugate vaccine (MCV4P) Unknown Completed [facility] Varicella (varivax)(chicken pox) Unknown Completed [facility] SARS-COV-2 COVID-19 VACCINE - (MODERNA) Unknown [facility]pleted [facility] SARS-COV-2 COVID-19 VACCINE - (MODERNA) Unknown Completed [facility] DTaP, Unspecified Formulation Unknown Completed [facility] DTaP, Unspecified Formulation Unknown Completed [facility] DTaP, Unspecified Formulation Unknown Completed [facility] DTaP, Unspecified Formulation Unknown Completed [facility] HEPATITIS A Unknown Completed [facility] Hep B, Adol or Pedi Dosage Unknown Completed [facility] Hep B, Adol or Pedi Dosage Unknown Completed [facility] HIB 4 Dose Schedule Unknown Completed [facility] HIB 4 Dose Schedule Unknown Completed [facility] MMR Unknown Completed [facility] IPV Unknown Completed [facility] IPV Unknown Completed [facility] Poliovirus, Live, Oral, Trivalent Unknown Completed [facility] Poliovirus, Live, Oral, Trivalent Unknown Completed [facility] Tetanus/Diptheria Unknown Completed [facility] TDAP Unknown Completed [facility] Influenza Virus Vaccine Quad IM, Preserv and ABX Free 6 MO-64 YRS (FLUCELVAX) Unknown Completed [facility] DTAP Unknown Completed [facility] HIB 4 Dose Schedule Unknown Completed [facility] Hep B, Adol or Pedi Dosage Unknown Completed [facility] MMR Unknown Completed [facility] Polio (IPV/OPV) Unknown Com[facility] Varicella (varivax)(chicken pox) Unknown Completed [facility] DTAP Unknown Completed [facility] Hep B, Adol or Pedi Dosage Unknown Completed [facility] HIB 4 Dose Schedule Unknown Completed [facility] Polio (IPV/OPV) Unknown Completed [facility] MMR Unknown Completed [facility] Varicella (varivax)(chicken pox) Unknown Completed [facility] HPV Unknown Completed [facility] Meningococcal Polysaccharide (groups A, C, Y and W-135) conjugate vaccine (MCV4P) Unknown Completed [facility] TDAP (ADACEL) VACCINE Unknown Completed [facility] Influenza Virus Vaccine Quad .5 mL IM 6+ MO (FLUZONE/FLULAVAL/FL UARIX) Unknown Completed [facility] TDAP (ADACEL) VACCINE Unknown Completed [facility] TDAP (ADACEL) VACCINE Unknown Completed [facility] Influenza Virus Vaccine Quad .5 mL IM 6+ MO (FLUZONE/FLULAVAL/FL UARIX) Unknown Completed [facility] HPV Unknown Completed [facility] Meningococcal Polysaccharide (groups A, C, Y and W-135) conjugate vaccine (MCV4P) Unknown Completed [facility] Varicella (varivax)(chicken pox) Unknown Completed [facility] SARS-COV-2 COVID-19 VACCINE - (MODERNA) Unknown [facility]pleted [facility] SARS-COV-2 COVID-19 VACCINE - (MODERNA) Unknown Completed [facility] [facility] DTaP, Unspecified Formulation Unknown Completed [facility] DTaP, Unspecified Formulation Unknown Completed [facility] DTaP, Unspecified Formulation Unknown Completed [facility] DTaP, Unspecified Formulation Unknown Completed [facility] HEPATITIS A Unknown Completed [facility] Hep B, Adol or Pedi Dosage Unknown Completed [facility] Hep B, Adol or Pedi Dosage Unknown Completed [facility] HIB 4 Dose Schedule Unknown Completed [facility] HIB 4 Dose Schedule Unknown Completed [facility] MMR Unknown Completed [facility] IPV Unknown Completed [facility] IPV Unknown Completed [facility] Poliovirus, Live, Oral, Trivalent Unknown Completed [facility] Poliovirus, Live, Oral, Trivalent Unknown Completed [facility] Tetanus/Diptheria Unknown Completed [facility] TDAP Unknown Completed [facility] Influenza Virus Vaccine Quad IM, Preserv and ABX Free 6 MO-64 YRS (FLUCELVAX) Unknown Completed [facility] HPV Unknown Completed [facility] Meningococcal Polysaccharide (groups A, C, Y and W-135) conjugate vaccine (MCV4P) Unknown Completed [facility] TDAP (ADACEL) VACCINE Unknown Completed [facility] Influenza Virus Vaccine Quad .5 mL IM 6+ MO (FLUZONE/FLULAVAL/FL UARIX) Unknown Completed [facility] TDAP (ADACEL) VACCINE Unknown Completed [facility] TDAP (ADACEL) VACCINE Unknown Completed [facility] Influenza Virus Vaccine Quad .5 mL IM 6+ MO (FLUZONE/FLULAVAL/FL UARIX) Unknown Completed [facility] HPV Unknown Completed [facility] Meningococcal Polysaccharide (groups A, C, Y and W-135) conjugate vaccine (MCV4P) Unknown Completed [facility] Varicella (varivax)(chicken pox) Unknown Completed [facility] SARS-COV-2 COVID-19 VACCINE - (MODERNA) Unknown [facility]pleted [facility] SARS-COV-2 COVID-19 VACCINE - (MODERNA) Unknown Completed [facility] DTaP, Unspecified Formulation Unknown Completed [facility] DTaP, Unspecified Formulation Unknown Completed [facility] DTaP, Unspecified Formulation Unknown Completed [facility] DTaP, Unspecified Formulation Unknown Completed [facility] HEPATITIS A Unknown Completed [facility] Hep B, Adol or Pedi Dosage Unknown Completed [facility] Hep B, Adol or Pedi Dosage Unknown Completed [facility] HIB 4 Dose Schedule Unknown Completed [facility] HIB 4 Dose Schedule Unknown Completed [facility] MMR Unknown Completed [facility] IPV Unknown Completed [facility] IPV Unknown Completed [facility] Poliovirus, Live, Oral, Trivalent Unknown Completed [facility] Poliovirus, Live, Oral, Trivalent Unknown Completed [facility]ria [facility] Influenza Virus Vaccine Quad IM, Preserv and ABX Free 6 MO-64 YRS (FLUCELVAX) Unknown Completed [facility] Vital Signs Vital Name Observation Time Observation Value Comments S ource Systolic blood pressure 2023-10-10 17:38:00 102 mm[Hg] [facility] Diastolic blood pressure 2023-10-10 17:38:00 78 mm[Hg] [facility] Heart rate 2023-10-10 17:38:00 84 /min [facility] Respiratory rate 2023-10-10 17:38:00 18 /min [facility] Body weight 2023-10-10 17:38:00 92.987 kg [facility] BMI 2023-10-10 17:38:00 34.11 kg/m2 [facility] Oxygen saturation in Arterial blood by Pulse oximetry 2023-10-10 17:38:00 99 /min [facility] Systolic blood pressure 2023-09-27 13:45:00 105 mm[Hg] [facility] Diastolic blood pressure 2023-09-27 13:45:00 52 mm[Hg] [facility] Heart rate 2023-09-27 13:45:00 63 /min [facility] Body temperature 2023-09-27 13:45:00 36.61 Roselia [facility] Respiratory rate 2023-09-27 13:45:00 16 /min [facility] Oxygen saturation in Arterial blood by Pulse oximetry 2023-09-27 13:45:00 99 /min [facility] Body weight 2023-09-26 14:00:00 103 kg [facility] BMI 2023-09-26 14:00:00 37.79 kg/m2 [facility] Systolic blood pressure 2023-09-18 21:43:00 119 mm[Hg] [facility] Diastolic blood pressure 2023-09-18 21:43:00 75 mm[Hg] [facility] Heart rate 2023-09-18 21:43:00 86 /min [facility] Body temperature 2023-09-18 21:43:00 36.78 Roselia [facility] Respiratory rate 2023-09-18 21:43:00 18 /min [facility] Body height 2023-09-18 21:43:00 165.1 cm [facility] Body weight 2023-09-18 21:43:00 102.241 kg [facility] BMI 2023-09-18 21:43:00 37.51 kg/m2 [facility] Oxygen saturation in Arterial blood by Pulse oximetry 2023-09-18 21:43:00 100 /min [facility] Systolic blood pressure 2023-09-16 09:30:00 118 mm[Hg] [facility] Diastolic blood pressure 2023-09-16 09:30:00 70 mm[Hg] [facility] Heart rate 2023-09-16 09:30:00 93 /min [facility] Body temperature 2023-09-16 09:30:00 36.83 Roselia [facility] Oxygen saturation in Arterial blood by Pulse oximetry 2023-09-16 09:30:00 100 /min [facility] Respiratory rate 2023-09-16 07:45:00 17 /min [facility] Systolic blood pressure 2023-09-11 22:18:00 125 mm[Hg] [facility] Diastolic blood pressure 2023-09-11 22:18:00 73 mm[Hg] [facility] Heart rate 2023-09-11 22:18:00 86 /min [facility] Body temperature 2023-09-11 22:18:00 37.28 Roselia [facility] Respiratory rate 2023-09-11 22:18:00 16 /min [facility] Body weight 2023-09-11 22:18:00 98.612 kg [facility] BMI 2023-09-11 22:18:00 36.18 kg/m2 [facility] Oxygen saturation in Arterial blood by Pulse oximetry 2023-09-11 22:18:00 100 /min [facility] Systolic blood pressure 2023-09-08 03:30:00 125 mm[Hg] [facility] Diastolic blood pressure 2023-09-08 03:30:00 65 mm[Hg] [facility] Heart rate 2023-09-08 03:30:00 92 /min [facility] Oxygen saturation in Arterial blood by Pulse oximetry 2023-09-08 03:30:00 100 /min [facility] Body temperature 2023-09-08 02:40:00 36.61 Roselia [facility] Respiratory rate 2023-09-08 02:40:00 17 /min [facility] Systolic blood pressure 2023-09-03 22:00:00 112 mm[Hg] [facility] Diastolic blood pressure 2023-09-03 22:00:00 70 mm[Hg] [facility] Heart rate 2023-09-03 22:00:00 109 /min [facility] Oxygen saturation in Arterial blood by Pulse oximetry 2023-09-03 22:00:00 100 /min [facility] Body temperature 2023-09-03 21:37:00 36.78 Roselia [facility] Respiratory rate 2023-09-03 21:37:00 16 /min [facility] Body weight 2023-09-03 21:13:00 96.798 kg [facility] BMI 2023-09-03 21:13:00 35.51 kg/m2 [facility] Body height 2023-09-03 21:13:00 165.1 cm [facility] Systolic blood pressure 2023-09-02 20:21:00 113 mm[Hg] [facility] Diastolic blood pressure 2023-09-02 20:21:00 67 mm[Hg] [facility] Heart rate 2023-09-02 20:21:00 93 /min [facility] Body temperature 2023-09-02 20:21:00 36.83 Roselia [facility] Respiratory rate 2023-09-02 20:21:00 16 /min [facility] Body height 2023-09-02 20:21:00 165.1 cm [facility] Body weight 2023-09-02 20:21:00 95.255 kg [facility] BMI 2023-09-02 20:21:00 34.95 kg/m2 [facility] Oxygen saturation in Arterial blood by Pulse oximetry 2023-09-02 20:21:00 97 /min [facility] Systolic blood pressure 2023-08-28 17:08:00 108 mm[Hg] [facility] Diastolic blood pressure 2023-08-28 17:08:00 69 mm[Hg] [facility] Heart rate 2023-08-28 17:08:00 90 /min [facility] Body temperature 2023-08-28 17:08:00 36.5 Roselia [facility] Body height 2023-08-28 17:08:00 165.1 cm [facility] Body weight 2023-08-28 17:08:00 94.439 kg [facility] BMI 2023-08-28 17:08:00 34.65 kg/m2 [facility] Heart rate 2023-08-22 18:00:00 84 /min [facility] in Arterial blood by Pulse oximetry 2023-08-22 18:00:00 99 /min [facility] Systolic blood pressure 2023-08-22 17:00:00 123 mm[Hg] [facility] Diastolic blood pressure 2023-08-22 17:00:00 63 mm[Hg] [facility] Body temperature 2023-08-22 17:00:00 36.06 Roselia [facility] Respiratory rate 2023-08-22 17:00:00 16 /min [facility] Body weight 2023-08-20 21:50:00 99.542 kg [facility] BMI 2023-08-20 21:50:00 36.52 kg/m2 [facility] Body height 2023-08-20 21:01:00 165.1 cm [facility] Systolic blood pressure 2023-08-04 16:25:00 108 mm[Hg] [facility] Diastolic blood pressure 2023-08-04 16:25:00 64 mm[Hg] [facility] Heart rate 2023-08-04 16:25:00 87 /min [facility] Body temperature 2023-08-04 16:25:00 36.56 Roselia [facility] Respiratory rate 2023-08-04 16:25:00 18 /min [facility] Body height 2023-08-04 16:25:00 165.1 cm [facility] Body weight 2023-08-04 16:25:00 94.802 kg [facility] BMI 2023-08-04 16:25:00 34.78 kg/m2 [facility] Oxygen saturation in Arterial blood by Pulse oximetry 2023-08-04 16:25:00 99 /min [facility] Heart rate 2023-07-29 09:45:00 92 /min [facility] in Arterial blood by Pulse oximetry 2023-07-29 09:45:00 100 /min [facility] Body height 2023-07-29 09:38:00 165.1 cm [facility] Body weight 2023-07-29 09:38:00 97.614 kg [facility] BMI 2023-07-29 09:38:00 35.81 kg/m2 [facility] Systolic blood pressure 2023-07-29 09:30:00 119 mm[Hg] [facility] Diastolic blood pressure 2023-07-29 09:30:00 64 mm[Hg] [facility] Body temperature 2023-07-29 09:30:00 36.67 Roselia [facility] Heart rate 2023-06-14 20:00:00 63 /min [facility] Oxygen saturation in Arterial blood by Pulse oximetry 2023-06-14 20:00:00 100 /min [facility] Systolic blood pressure 2023-06-14 18:02:00 112 mm[Hg] [facility] Diastolic blood pressure 2023-06-14 18:02:00 58 mm[Hg] [facility] Body temperature 2023-06-14 18:02:00 36.89 Roselia [facility] Respiratory rate 2023-06-14 18:02:00 16 /min [facility] Body height 2023-06-14 17:49:00 165.1 cm [facility] Body weight 2023-06-14 17:49:00 93.35 kg [facility] BMI 2023-06-14 17:49:00 34.25 kg/m2 [facility] Systolic blood pressure 2023-05-03 22:46:00 117 mm[Hg] [facility] Diastolic blood pressure 2023-05-03 22:46:00 70 mm[Hg] [facility] Heart rate 2023-05-03 22:46:00 94 /min [facility] Body temperature 2023-05-03 22:46:00 36.67 Roselia [facility] Respiratory rate 2023-05-03 22:46:00 18 /min [facility] Oxygen saturation in Arterial blood by Pulse oximetry 2023-05-03 22:46:00 99 /min [facility] Heart rate 2023-04-18 21:00:00 77 /min [facility] Oxygen saturation in Arterial blood by Pulse oximetry 2023-04-18 21:00:00 100 /min [facility] Systolic blood pressure 2023-04-18 20:00:00 138 mm[Hg] [facility] Diastolic blood pressure 2023-04-18 20:00:00 75 mm[Hg] [facility] Body temperature 2023-04-18 17:42:00 37.33 Roselia [facility] Respiratory rate 2023-04-18 17:42:00 16 /min [facility] Body height 2023-04-18 17:42:00 165.1 cm [facility] Body weight 2023-04-18 17:42:00 92.987 kg [facility] BMI 2023-04-18 17:42:00 34.11 kg/m2 [facility] Systolic blood pressure 2023-04-02 13:43:00 122 mm[Hg] [facility] Diastolic blood pressure 2023-04-02 13:43:00 62 mm[Hg] [facility] Heart rate 2023-04-02 13:43:00 98 /min [facility] Body temperature 2023-04-02 13:43:00 36.61 Roselia [facility] Respiratory rate 2023-04-02 13:43:00 18 /min [facility] Body height 2023-04-02 13:43:00 165.1 cm [facility] Body weight 2023-04-02 13:43:00 94.575 kg [facility] BMI 2023-04-02 13:43:00 34.70 kg/m2 [facility] Systolic blood pressure 2023-03-11 18:08:00 119 mm[Hg] [facility] Diastolic blood pressure 2023-03-11 18:08:00 68 mm[Hg] [facility] Heart rate 2023-03-11 18:08:00 87 /min [facility] Body temperature 2023-03-11 18:08:00 36.78 Roselia [facility] Respiratory rate 2023-03-11 18:08:00 18 /min [facility] Body height 2023-03-11 18:08:00 165.1 cm [facility] Body weight 2023-03-11 18:08:00 93.044 kg [facility] BMI 2023-03-11 18:08:00 34.13 kg/m2 [facility] Systolic blood pressure 2023-02-11 18:05:00 112 mm[Hg] [facility] Diastolic blood pressure 2023-02-11 18:05:00 64 mm[Hg] [facility] Heart rate 2023-02-11 18:05:00 73 /min [facility] Body temperature 2023-02-11 18:05:00 36.78 Roselia [facility] Respiratory rate 2023-02-11 18:05:00 18 /min [facility] Body height 2023-02-11 18:05:00 165.1 cm [facility] Body weight 2023-02-11 18:05:00 88.508 kg [facility] BMI 2023-02-11 18:05:00 32.47 kg/m2 [facility] Systolic blood pressure 2022-01-17 03:00:00 119 mm[Hg] [facility] Diastolic blood pressure 2022-01-17 03:00:00 62 mm[Hg] [facility] Heart rate 2022-01-17 03:00:00 68 /min [facility] Respiratory rate 2022-01-17 03:00:00 16 /min [facility] Oxygen saturation in Arterial blood by Pulse oximetry 2022-01-17 03:00:00 100 /min [facility] Body temperature 2022-01-17 02:03:00 37.28 Roselia [facility] Body height 2022-01-17 02:03:00 165.1 cm [facility] Body weight 2022-01-17 02:03:00 90.719 kg [facility] BMI 2022-01-17 02:03:00 33.28 kg/m2 [facility] Systolic blood pressure 2019-05-27 20:39:00 107 mm[Hg] [facility] Diastolic blood pressure 2019-05-27 20:39:00 63 mm[Hg] [facility] Heart rate 2019-05-27 20:39:00 77 /min [facility] Body temperature 2019-05-27 20:39:00 36.94 Roselia [facility] Respiratory rate 2019-05-27 20:39:00 18 /min [facility] Body height 2019-05-27 20:39:00 165.1 cm [facility] Body weight 2019-05-27 20:39:00 98.431 kg [facility] BMI 2019-05-27 20:39:00 36.11 kg/m2 [facility] Systolic blood pressure 2019-05-27 20:39:00 107 mm[Hg] [facility] Diastolic blood pressure 2019-05-27 20:39:00 63 mm[Hg] [facility] Heart rate 2019-05-27 20:39:00 77 /min [facility] Body temperature 2019-05-27 20:39:00 36.94 Roselia [facility] Respiratory rate 2019-05-27 20:39:00 18 /min [facility] Body height 2019-05-27 20:39:00 165.1 cm [facility] Body weight 2019-05-27 20:39:00 98.431 kg [facility] BMI 2019-05-27 20:39:00 36.11 kg/m2 [facility] Systolic blood pressure 2019-05-17 21:39:00 114 mm[Hg] [facility] Diastolic blood pressure 2019-05-17 21:39:00 71 mm[Hg] [facility] Heart rate 2019-05-17 21:39:00 103 /min [facility] Body temperature 2019-05-17 21:39:00 37.11 Roselia [facility] Respiratory rate 2019-05-17 21:39:00 18 /min [facility] Body height 2019-05-17 21:39:00 165.1 cm [facility] Body weight 2019-05-17 21:39:00 100.154 kg [facility] BMI 2019-05-17 21:39:00 36.74 kg/m2 [facility] Systolic blood pressure 2019-05-17 21:39:00 114 mm[Hg] [facility] Diastolic blood pressure 2019-05-17 21:39:00 71 mm[Hg] [facility] Heart rate 2019-05-17 21:39:00 103 /min [facility] Body temperature 2019-05-17 21:39:00 37.11 Roselia [facility] Respiratory rate 2019-05-17 21:39:00 18 /min [facility] Body height 2019-05-17 21:39:00 165.1 cm [facility] Body weight 2019-05-17 21:39:00 100.154 kg [facility] BMI 2019-05-17 21:39:00 36.74 kg/m2 [facility] Systolic blood pressure 2019-05-04 18:09:00 135 mm[Hg] [facility] Diastolic blood pressure 2019-05-04 18:09:00 68 mm[Hg] [facility] Heart rate 2019-05-04 18:09:00 96 /min [facility] Body temperature 2019-05-04 18:09:00 36.78 Roselia [facility] Respiratory rate 2019-05-04 18:09:00 22 /min [facility] Oxygen saturation in Arterial blood by Pulse oximetry 2019-05-04 18:09:00 100 /min [facility] Systolic blood pressure 2019-04-29 21:00:00 127 mm[Hg] [facility] Diastolic blood pressure 2019-04-29 21:00:00 68 mm[Hg] [facility] Heart rate 2019-04-29 21:00:00 87 /min [facility] Body temperature 2019-04-29 21:00:00 36.39 Roselia [facility] Respiratory rate 2019-04-29 21:00:00 20 /min [facility] Body height 2019-04-29 21:00:00 165.1 cm [facility] Body weight 2019-04-29 21:00:00 98.431 kg [facility] BMI 2019-04-29 21:00:00 36.11 kg/m2 [facility] Procedures Procedure Date / Time Performed Performing Clinician Source CBC WITH DIFF 2023-09-27 00:33:00 [facility] CENTRAL NEURAXIAL BLOCK 2023-09-25 09:00:00 Xenia Venegas [facility] URINE DRUG (IMMUNOASSAY) - COMPREHENSIVE DRUG SCREEN 2023-09-25 08:17:00 [facility] CBC WITH DIFF 2023-09-25 08:05:00 Anthony [facility] HEPATITIS B SURFACE ANTIGEN 2023-09-25 08:05:00 [facility] HB ABO GROUPING 2023-09-25 08:05:00 Anthony [facility] RHO (D) IMMUNE GLOBULIN 2023-09-25 08:05:00 Cruz [facility] ADC OR BRIDGER ONLY - RPR 2023-09-25 08:05:00 [facility] HIV 1/2 AG-AB WITH REFLEX 2023-09-25 08:05:00 Cruz [facility] URINE DRUG (IMMUNOASSAY) - COMPREHENSIVE DRUG SCREEN 2023-09-18 22:29:00 Anthony [facility] POCT URINALYSIS W/O SPECIFIC GRAVITY 2023-09-18 00:00:00 Cruz [facility] ASSIGNMENT OF BENEFITS 2023-09-16 10:25:05 Docto r Unassigned, Excello [facility] CONSENT/REFUSAL FOR DIAGNOSIS AND TREATMENT 2023-09-16 10:23:26 Doctor Unassigned, Excello [facility] CBC WITH DIFF 2023-09-16 09:30:00 Jordan Wilkinson [facility] COMP. METABOLIC PANEL (60205) 2023-09-16 08:49:00 [facility] 2023-09-11 22:52:27 Anthony Kory Vasquez [facility] POCT URINALYSIS W/O SPECIFIC GRAVITY 2023-09-11 00:00:00 Kory Cruz [facility] ADC ONLY - FERN TEST 2023-09-08 02:41:00 Mary Avina [facility] POCT URINALYSIS W/O SPECIFIC GRAVITY 2023-08-28 00:00:00 Kory Cruz [facility] SECOND AND THIRD TRIMESTER ULTRASOUND 2023-08-22 19:52:00 Krystal Low [facility] POCT GLUCOSE (AUTOMATED) 2023-08-22 01:43:00 Eloy Chavez [facility] TRANSTHORACIC ECHO (TTE) COMPLETE 2023-08-21 14:54:52 Reynaldo [facility] HB ECG ROUTINE & RHYTHM STRIP 2023-08-21 14:04:01 Reynaldo [facility] THYROID STIMULATING HORMONE 2023-08-21 13:21:00 Mayra Welch [facility] BASIC METABOLIC PANEL (NA, K, CL, CO2, GLUCOSE, BUN, CREATININE, CA) 2023-08-21 13:21:00 Mayra Welch [facility] GLYCOSYLATED HEMOGLOBIN (A1C) 2023-08-21 13:21:00 Tito Pedersen [facility] RUBELLA SCREEN IGG 2023-08-21 13:21:00 [facility] 2023-08-21 13:21:00 Tito Pedersen [facility] HEPATITIS B SURFACE ANTIGEN 2023-08-21 13:21:00 Tito Pedersen [facility] HB ABO GROUPING 2023-08-21 13:21:00 Tito Pedersen [facility] HIV 1/2 AG-AB WITH REFLEX 2023-08-21 13:21:00 Tito Pedersen [facility] SYPHILIS IGG/IGM 2023-08-21 13:21:00 Tito Pedersen [facility] PROTHROMBIN TIME / INR 2023-08-21 01:40:00 Kory Cruz am [facility] ACTIVATED PARTIAL THRMPLAS BLANCA 2023-08-21 01:40:00 Anthony Kory Pedro [facility] URINE CULTURE 2023-08-21 01:31:00 Anthony Kory Pedro [facility] URINALYSIS 2023-08-21 01:16:00 Kory Cruz [facility] ADC CLC OR LCC ONLY - WET PREP 2023-08-21 01:16:00 [facility] B STREPTOCOCCUS BY PCR 2023-08-21 01:16:00 Anthony Kory [facility] CBC WITH DIFF 2023-08-21 01:15:00 Anthony Koryhadley Vasquez [facility] URINE DRUG (IMMUNOASSAY) - COMPREHENSIVE DRUG SCREEN 2023-08-21 01:14:00 [facility] HB ABO GROUPING 2023-08-21 01:14:00 Anthony Kory Pedro [facility] GC & CHLAMYDIA AMPLIFIED ASSAY 2023-08-21 01:13:00 [facility] US BIOPHYSICAL PROFILE 2023-08-20 23:58:11 [facility] US PELVIS > 14 WEEKS 2023-08-20 23:57:55 Anthony [facility] XR SHOULDER 2+ VW LEFT 2023-08-20 21:31:00 Selwyn Quintero [facility] HOSPITAL ADMISSION 2023-08-20 06:01:00 Doctor Un assigned, Excello [facility] TDAP VACCINE, >11 YRS, IM 2023-08-04 19:02:35 Anthony [facility] FLU VACC (), 6 MO-64 YRS, .5ML, IM, QUAD (FLUCELVAX) 2023-08-04 19:02:35 Anthony [facility] POCT URINALYSIS W/O SPECIFIC GRAVITY 2023-08-04 00:00:00 Anthony [facility] URINE DRUG (IMMUNOASSAY) - COMPREHENSIVE DRUG SCREEN 2023-07-29 09:49:00 [facility] 2023-07-29 09:49:00 Ariela Wilkinson [facility] US PELVIS > 14 WEEKS 2023-06-14 20:12:00 Kory Cruz [facility] URINALYSIS 2023-06-14 18:55:00 Kory Cruz [facility] ADC ONLY - FERN TEST 2023-06-14 18:55:00 Kory Cruz [facility] ASSIGNMENT OF BENEFITS 2023-06-14 17:37:47 Docto r Unassigned, Excello [facility] CONSENT/REFUSAL FOR DIAGNOSIS AND TREATMENT 2023-06-14 17:36:34 Doctor Unassigned, Excello [facility] SECOND AND THIRD TRIMESTER ULTRASOUND 2023-05-28 21:05:00 Krystal Low [facility] SECOND AND THIRD TRIMESTER ULTRASOUND 2023-05-28 20:25:00 Krystal Low [facility] URINE DRUG (IMMUNOASSAY) - COMPREHENSIVE DRUG SCREEN 2023-04-18 18:48:00 Jaja Ariela [facility] ADC CLC OR LCC ONLY - WET PREP 2023-04-18 18:48:00 Jaja [facility] CONSENT/REFUSAL FOR DIAGNOSIS AND TREATMENT 2023-04-18 16:42:47 Doctor Unassigned, Excello [facility] POCT URINALYSIS 2023-04-02 13:44:00 Krystal Low [facility] EXTERNAL PROVIDER RECORDS 2023-03-21 05:01:00 Doctor Unassigned, Excello [facility] POCT URINALYSIS 2023-03-11 18:00:00 Krystal Low [facility] AUTHORIZATION FOR RELEASE OF PHI 2023-03-11 05:01:00 Doctor Unassigned, Excello [facility] POCT URINALYSIS W/O SPECIFIC GRAVITY 2023-02-11 18:03:00 Krystal Low [facility] POCT TEST 2023-02-11 18:02:00 Rhona Low [facility] REPORT OF 2023-02-11 05:01:00 Doctor Kiran harper, Excello [facility] LIPASE 2022-01-17 03:09:00 Yvonne Siddiqi [facility] COMP. METABOLIC PANEL ([id number]) 2022-01-17 03:09:00 Yvonne Siddiqi [facility] CBC WITH DIFF 2022-01-17 03:09:00 Yvonne Siddiqi [facility] POCT TEST 2022-01-17 02:14:00 Lakhwinder Weiner [facility] URINALYSIS 2022-01-17 02:10:00 [facility] NOTICE OF PRIVACY PRACTICES 2022-01-17 01:36:28 Doctor Unassigned, Excello [facility] CONSENT/REFUSAL FOR DIAGNOSIS AND TREATMENT 2022-01-17 01:36:18 Doctor Unassigned, Excello [facility] TDAP (ADACEL) IMMUNIZATION 2019-05-27 20:41:37 Josy Chaudhary [facility] US ABDOMEN LIMITED 2019-05-17 22:45:16 Josy Chaudhary [facility] ASSIGNMENT OF BENEFITS 2019-05-17 22:12:10 Docto r Unassigned, Excello [facility] URINALYSIS 2019-05-04 18:55:00 Kory Cruz [facility] ADC CLC OR LCC ONLY - WET PREP 2019-05-04 18:55:00 Kory Cruz [facility] ADC ONLY - FERN TEST 2019-05-04 18:54:00 Kory Cruz [facility] CONSENT/REFUSAL FOR DIAGNOSIS AND TREATMENT 2019-05-04 17:47:16 Doctor Unassigned, Excello [facility] Encounters Start Date/Time End Date/Time Encounter Type Admission Type Attending Clinicians Care Facility Care Department Encounter ID Source 2023-09-16 06:18:56 Outpatient X [facility] [id number] [facility] 2023-07-29 06:14:02 Outpatient X [facility] [id number] [facility] 2023-04-18 17:24:48 Outpatient X [facility] [id number] [facility] 2022-08-02 05:16:57 Emergency HFD HFD [id number] [facility] ent 2021-07-08 14:21:14 Outpatient [facility] [id number]23-11-28 00:00:00 2023-11-28 00:00:00 Patient Secure Msg Doctor Unassigned, Excello [facility] 1..840.114 350.1.13.10 4.2.7.2.686 [id number] 134 [id number] [facility] 2023-11-21 00:00:00 2023-11-21 00:00:00 Telephone Kory Cruz [facility] 1..840.114 350.1.13.10 4.2.7.2.686 [id number] 134 [id number] [facility] 2023-11-15 00:00:00 2023-11-15 00:00:00 Telephone Kory Cruz [facility] 1..840.114 350.1.13.10 4.2.7.2.686 [id number] 134 [id number] [facility] 2023-10-10 10:30:00 2023-10-10 12:02:47 Outpatient R [facility] [id number] [facility] 2023-10-10 10:30:00 2023-10-10 12:02:47 Routine Visit Kory Cruz [facility] 1..840.114 350.1.13.10 4.2.7.2.686 [id number] 134 [id number] [facility] 2023-10-10 00:00:00 2023-10-10 00:00:00 Patient Secure Msg Doctor Unassigned, Excello [facility] 1.2840.114 350.1.13.10 4.2.7.2.686 [id number] 134 [id number] [facility] 2023-10-09 00:00:00 2023-10-09 00:00:00 Telephone Kory Cruz [facility] 1..840.114 350.1.13.10 4.2.7.2.686 [id number] 134 [id number] [facility] 2023-10-09 00:00:00 2023-10-09 00:00:00 Patient Secure Msg Doctor Unassigned, Excello [facility] 1..840.114 350.1.13.10 4.2.7.2.686 [id number] 134 [id number] [facility] 2023-09-25 01:05:00 2023-09-27 12:55:00 Inpatient X KORY CRUZ [facility] [id number] [facility] 2023-09-25 01:05:00 2023-09-27 12:55:00 Hospital Encounter Kory Cruz [facility] 1..840.114 350.1.13.10 4.2.7.2.686 [id number] [facility] 2023-09-25 16:00:00 2023-09-25 16:00:00 Outpatient R KORY CRUZ [facility] [id number] [facility] 2023-09-25 03:00:00 2023-09-25 08:52:00 Anesthesia Event Xenia Angel Michelle [facility] 1..840.114 350.1.13.10 4.2.7.2.686 [id number] [id number] [facility] 2023-09-24 00:00:00 2023-09-24 00:00:00 Telephone Kory Cruz [facility] 1..840.114 350.1.13.10 4.2.7.2.686 [id number] 134 [id number] [facility] 2023-09-19 00:10:00 2023-09-19 00:10:00 Outpatient P CANO-EVER S, ARIELA CANO-EVER S, ARIELA [facility] [id number] [facility] 2023-09-18 15:15:00 2023-09-18 16:21:53 Outpatient R KORY CRUZ [facility] [id number] [facility] 2023-09-18 15:15:00 2023-09-18 16:21:53 Routine Visit Kory Cruz [facility] 1..840.114 350.1.13.10 4.2.7.2.686 [id number] 134 [id number] [facility] 2023-09-16 01:28:00 2023-09-16 03:45:00 Outpatient X CANO-EVER S, ARIELA CANO-EVER S, ARIELA [facility] [id number] [facility] 2023-09-16 01:28:00 2023-09-16 03:45:00 Emergency Cano-Ever s, Ariela [facility] 1..840.114 350.1.13.10 4.2.7.2.686 [id number] [id number] [facility] 2023-09-11 16:15:00 2023-09-11 16:50:18 Outpatient R KORY CRUZ [facility] [id number] [facility] 2023-09-11 16:15:00 2023-09-11 16:50:18 Routine Visit Kory Cruz [facility] 1..840.114 350.1.13.10 4.2.7.2.686 [id number] 134 [id number] [facility] 2023-09-11 14:45:00 2023-09-11 15:00:00 Surgical Dressing Maker Visit 2, Adc Lab Kory Cruz [facility] 1.2.840.114 350.1.13.10 4.2.7.2.686 [id number] [facility] 2023-09-11 11:00:00 2023-09-11 11:00:00 Outpatient R KORY CRUZ [facility] [id number] [facility] 2023-09-09 16:00:00 2023-09-09 16:00:00 Outpatient R KORY CRUZ [facility] [id number] [facility] 2023-09-08 00:00:00 2023-09-08 00:00:00 Telephone Kory Cruz [facility] 1.2.840.114 350.1.13.10 4.2.7.2.686 [id number] 134 [id number] [facility] 2023-09-07 20:22:00 2023-09-07 22:06:00 Outpatient X MARY AVINA [facility] [id number] [facility] 2023-09-07 20:22:00 2023-09-07 22:06:00 Emergency Mary Avina [facility] 1.2.840.114 350.1.13.10 4.2.7.2.686 [id number] [facility] 2023-09-03 15:18:00 2023-09-03 17:33:00 Outpatient X KORY CRUZ [facility] [id number] [facility] 2023-09-03 15:18:00 2023-09-03 17:33:00 Emergency Kory Cruz [facility] 1.2.840.114 350.1.13.10 4.2.7.2.686 [id number] [facility] 2023-09-02 14:23:00 2023-09-02 15:18:00 Outpatient P MARY AVINA [facility] [id number] [facility] 2023-09-02 14:23:00 2023-09-02 15:18:00 Hospital Encounter Mary Avina [facility] 1.0.114 350.1.13.10 4.2.7.2.686 [id number] [facility] 2023-08-28 10:45:00 2023-08-28 11:28:38 Outpatient R KORY CRUZ [facility] [id number] [facility] 2023-08-28 10:45:00 2023-08-28 11:28:38 Routine Visit Kory Cruz [facility] 1..114 350.1.13.10 4.2.7.2.686 [id number] 134 [id number] [facility] 2023-08-20 15:22:00 2023-08-22 16:30:00 Outpatient X SCOTT ELOY [facility] [id number] [facility] 2023-08-20 15:22:00 2023-08-22 16:30:00 Emergency QuinteroNacho Vien Cam Omere, Chasey Ikuvbogie Pacheco, Luis Diego [facility] 1..114 350.1.13.10 4.2.7.2.686 [id number] 135 [id number] [facility] 2023-08-22 13:00:00 2023-08-22 13:54:45 Surgical Dressing Maker Visit 2, [facility] Us Kristal Alfredo Shannon [facility] 1..114 350.1.13.10 4.2.7.2.686 [id number] [facility] 2023-08-21 20:00:01 2023-08-21 20:00:01 Anesthesia Event Xenia Angel [facility] 1.840.114 350.1.13.10 4.2.7.2.686 [id number] [id number] [facility] 2023-08-18 14:15:00 2023-08-18 14:15:00 Outpatient R KORY CRUZ [facility] [id number] [facility] 2023-08-08 13:45:00 2023-08-08 13:45:00 Outpatient R [facility] [id number] [facility] 2023-08-06 00:00:00 2023-08-06 00:00:00 Patient Secure Msg Doctor Unassigned, Excello [facility] 1..114 350.1.13.10 4.2.7.2.686 [id number] [facility] 2023-08-04 10:00:00 2023-08-04 11:00:40 Outpatient R ANTHONY KORY [facility] [id number] [facility] 2023-08-04 10:00:00 2023-08-04 11:00:40 Initial Visit Kory Cruz [facility] 1.840.114 350.1.13.10 4.2.7.2.686 [id number] 134 [id number] [facility] 2023-07-29 03:10:00 2023-07-29 06:05:00 Outpatient X CANO-EVER S, ARIELA CANO-EVER S, ARIELA [facility] [id number] [facility] 2023-07-29 03:10:00 2023-07-29 06:05:00 Emergency Cano-Ever s, Ariela [facility] 1.284.114 350.1.13.10 4.2.7.2.686 [id number] [id number] [facility] 2023-07-27 00:00:00 2023-07-27 00:00:00 Nurse Triage NurseSuyapa [facility] 1.2.840.114 350.1.13.10 4.2.7.2.686 [id number] [facility] 2023-06-21 00:00:00 2023-06-21 00:00:00 Krystal Ortega [facility] 1.2.840.114 350.1.13.10 4.2.7.2.686 [id number] [facility] 2023-06-14 12:51:00 2023-06-14 15:30:00 Outpatient X KORY CRUZ [facility] [id number] [facility] 2023-06-14 12:51:00 2023-06-14 15:30:00 Emergency Kory Cruz [facility] 1.2.840.114 350.1.13.10 4.2.7.2.686 [id number] [id number] [facility] 2023-06-14 00:00:00 2023-06-14 00:00:00 Nurse Triage Heidi Christianson [facility] 1.2.840.114 350.1.13.10 4.2.7.2.686 [id number] [facility] 2023-06-14 00:00:00 2023-06-14 00:00:00 Orders Only Doctor Unassigned, Excello [facility] 1.2.840.114 350.1.13.10 4.2.7.2.686 [id number] [facility] 2023-06-03 00:00:00 2023-06-03 00:00:00 Telephone Huy Mendoza [facility] 1.2.840.114 350.1.13.10 4.2.7.2.686 [id number] [facility] 2023-06-02 15:30:00 2023-06-02 15:30:00 Outpatient HUY FRIAS [facility] [id number] [facility] 2023-05-30 00:00:00 2023-05-30 00:00:00 Case Management Krystal Low [facility] 1.2.840.114 350.1.13.10 4.2.7.2.686 [id number] [facility] 2023-05-28 14:00:00 2023-05-28 15:19:04 Outpatient P SHELLEY SANCHEZ [facility] [id number] [facility] 2023-05-28 14:00:00 2023-05-28 15:19:04 Surgical Dressing Maker Visit Ultrasound, Arnulfojuliette vee [facility] 1.2.840.114 350.1.13.10 4.2.7.2.686 [id number] [facility] 2023-05-21 00:00:00 2023-05-21 00:00:00 Refill Krystal Low [facility] 1.2.840.114 350.1.13.10 4.2.7.2.686 [id number] 107 [id number] [facility] 2023-05-21 00:00:00 2023-05-21 00:00:00 Telephone Krystal Low [facility] 1.2.840.114 350.1.13.10 4.2.7.2.686 [id number] [facility] 2023-05-20 15:30:00 2023-05-20 15:30:00 Outpatient HUY FRIAS [facility] [id number] [facility] 2023-05-16 09:45:00 2023-05-16 09:45:00 Outpatient R KENNEDYARIELKRYSTAL [facility] [id number] [facility] 2023-05-03 17:42:00 2023-05-03 18:57:00 Outpatient X CANO-EVER S, ARIELA CANO-EVER S, ARIELA [facility] [id number] [facility] 2023-05-03 17:42:00 2023-05-03 18:57:00 Emergency Cano-Ever s, Ariela [facility] 1.2.840.114 350.1.13.10 4.2.7.2.686 [id number] [facility] 2023-04-30 10:45:00 2023-04-30 10:45:00 Outpatient R KRYSTAL LOW [facility] [id number] [facility] 2023-04-18 12:18:00 2023-04-18 16:05:00 Outpatient X CANO-EVER S, ARIELA CANO-EVER S, ARIELA [facility] [id number] [facility] 2023-04-18 12:18:00 2023-04-18 16:05:00 Emergency Cano-Ever sIrlandaAriela [facility] 1.2.840.114 350.1.13.10 4.2.7.2.686 [id number] [facility] 2023-04-17 00:00:00 2023-04-17 00:00:00 Telephone Krystal Low [facility] 1.2.840.114 350.1.13.10 4.2.7.2.686 [id number] 107 [id number] [facility] 2023-04-17 00:00:00 2023-04-17 00:00:00 Patient Secure Msg Krystal Low [facility] 1.2.840.114 350.1.13.10 4.2.7.2.686 [id number] 107 [id number] [facility] 2023-04-08 12:45:00 2023-04-08 12:45:00 Outpatient R KRYSTAL LOW [facility] [id number] [facility] 2023-04-07 00:00:00 2023-04-07 00:00:00 Case Management Krystal Low [facility] 1..840.114 350.1.13.10 4.2.7.2.686 [id number] [facility] 2023-04-03 10:30:00 2023-04-03 10:30:00 Outpatient R KRYSTAL LOW [facility] [id number] [facility] 2023-04-03 00:00:00 2023-04-03 00:00:00 Refill Krystal Low [facility] 1.2.840.114 350.1.13.10 4.2.7.2.686 [id number] 107 [id number] [facility] 2023-04-02 08:45:00 2023-04-02 09:15:48 Outpatient R KRYSTAL LOW [facility] [id number] [facility] 2023-04-02 08:45:00 2023-04-02 09:15:48 Routine Visit Krystal Low [facility] 1.2.840.114 350.1.13.10 4.2.7.2.686 [id number] [facility] 2023-03-21 00:00:00 2023-03-21 00:00:00 Case Management Krystal Low [facility] 1.2.840.114 350.1.13.10 4.2.7.2.686 [id number] 107 [id number] [facility] 2023-03-21 00:00:00 2023-03-21 00:00:00 Orders Only Doctor Unassigned, Excello [facility] 1.2.840.114 350.1.13.10 4.2.7.2.686 [id number] [facility] 2023-03-19 00:00:00 2023-03-19 00:00:00 [facility] 1.2840.114 350.1.13.10 4.2.7.2.686 [id number] [facility] 2023-03-11 12:45:00 2023-03-11 13:26:33 Outpatient R AUSTINShantellKRYSTAL [facility] [id number] [facility] 2023-03-11 12:45:00 2023-03-11 13:26:33 Routine Visit Krystal Low [facility] 1.2840.114 350.1.13.10 4.2.7.2.686 [id number] 107 [id number] [facility] 2023-03-11 00:00:00 2023-03-11 00:00:00 Orders Only Doctor Unassigned, Excello [facility] 1.2840.114 350.1.13.10 4.2.7.2.686 [id number] [facility] 2023-02-18 00:00:00 2023-02-18 00:00:00 [facility]phone [facility] 1.2.840.114 350.1.13.10 4.2.7.2.686 [id number] 107 [id number] [facility] 2023-02-14 00:00:00 2023-02-14 00:00:00 Case Management Krystal Low [facility] 1.2.840.114 350.1.13.10 4.2.7.2.686 [id number] 107 [id number] [facility] 2023-02-14 00:00:00 2023-02-14 00:00:00 Telephone Krystal Low [facility] 1.2.840.114 350.1.13.10 4.2.7.2.686 [id number] 107 [id number] [facility] 2023-02-11 13:00:00 2023-02-11 14:23:32 Initial Visit Kennedyariel Krystal A [facility] 1.2.840.114 350.1.13.10 4.2.7.2.686 [id number] 107 [id number] [facility] 2023-02-11 12:30:00 2023-02-11 13:21:27 Outpatient R KENNEDYARIEL KRYSTAL [facility] [id number] [facility] 2023-02-11 00:00:00 2023-02-11 00:00:00 Orders Only Doctor Unassigned, Excello [facility] 1.2.840.114 350.1.13.10 4.2.7.2.686 [id number] [facility] 2023-02-10 08:30:00 2023-02-10 08:30:00 Outpatient R HUY MENDOZA [facility] [id number] [facility] 2022-01-16 21:05:00 2022-01-17 00:11:00 Emergency X YVONNE SIDDIQI [facility] [id number] [facility] 2022-01-16 21:05:00 2022-01-17 00:11:00 Emergency Yvonne Siddiqi [facility] 1.2.840.114 350.1.13.10 4.2.7.2.686 [id number] [facility] 2021-07-25 00:00:00 2021-07-25 00:00:00 Patient Secure Msg Doctor Unassigned, Excello [facility] 1.2.840.114 350.1.13.10 4.2.7.2.686 [id number] [facility] 2021-04-19 13:15:00 2021-04-19 13:15:00 Outpatient R HUY MENDOZA [facility] [id number] [facility] 2021-02-06 00:00:00 2021-02-06 00:00:00 Case Management Simi Jenniferalee Rios 1.2.840.114 350.1.13.10 4.2.7.2.686 [id number] [facility] 2021-02-06 00:00:00 2021-02-06 00:00:00 Case Management Irlanda Belcheralee Rios 1.2.840.114 350.1.13.10 4.2.7.2.686 [id number] 2020-12-12 00:00:00 2020-12-12 00:00:00 Patient Outreach Broderick Melton [facility] 1.2.840.114 350.1.13.10 4.2.7.2.686 [id number] [facility] 2020-12-12 00:00:00 2020-12-12 00:00:00 Patient Outreach Broderick Melton [facility] 1.2.840.114 350.1.13.10 4.2.7.2.686 [id number] 2020-02-28 15:00:00 2020-02-28 15:00:00 Outpatient R JOSY CHAUDHARY [facility] [id number] [facility] 2019-12-18 17:30:00 2019-12-18 17:30:00 Outpatient R KRISSY GREEN [facility] [id number] [facility] 2019-11-18 14:30:00 2019-11-18 14:30:00 Outpatient R JOSY CHAUDHARY [facility] [id number] [facility] 2019-05-27 14:41:30 2019-05-27 15:54:53 Routine Visit Josy Chaudhary [facility] 1.2.840.114 350.1.13.10 4.2.7.2.686 [id number] [facility] 2019-05-27 14:41:30 2019-05-27 15:54:53 Routine Visit Josy hCaudhary [facility] 1.2.840.114 350.1.13.10 4.2.7.2.686 [id number] 2019-05-17 17:15:00 2019-05-17 23:59:00 Hospital Encounter Zaid [facility] 1.2.840.114 350.1.13.10 4.2.7.2.686 [id number] [facility] 2019-05-17 17:21:30 2019-05-17 17:36:30 Surgical Dressing Maker Visit 1, Adc Lab Kory Cruz [facility] 1.2.840.114 350.1.13.10 4.2.7.2.686 [id number] [facility] 2019-05-17 15:55:01 2019-05-17 16:56:25 Office Visit Zaid [facility] 1.2.840.114 350.1.13.10 4.2.7.2.686 [id number] 2019-05-17 15:55:01 2019-05-17 16:56:25 Office Visit Josy Chaudhary [facility] Building 1.2.840.114 350.1.13.10 4.2.7.2.686 [id number] [facility] 2019-05-17 00:00:00 2019-05-17 00:00:00 Orders Only Doctor Unassigned, [facility] [place] 1.2.840.114 350.1.13.10 4.2.7.2.686 [id number] [facility] 2019-05-05 00:00:00 2019-05-05 00:00:00 Telephone Josy Chaudhary [facility] 1.2.840.114 350.1.13.10 4.2.7.2.686 [id number] [facility] 2019-05-04 15:07:01 2019-05-04 15:22:01 Surgical Dressing Maker Visit 1, Adc Lab Kory Cruz [facility] 1.2.840.114 350.1.13.10 4.2.7.2.686 [id number] [facility] 2019-05-04 12:48:00 2019-05-04 14:57:00 Hospital Encounter Kory Cruz [facility] 1.2.840.114 350.1.13.10 4.2.7.2.686 [id number] [facility] 2019-05-04 00:00:00 2019-05-04 00:00:00 Telephone Josy Chaudhary [facility] 1.2.840.114 350.1.13.10 4.2.7.2.686 [id number] [facility] 2019-05-04 00:00:00 2019-05-04 00:00:00 Orders Only Doctor Unassigned, Excello [facility] [place] 1.2840.114 350.1.13.10 4.2.7.2.686 [id number] [facility] 2019-04-30 00:00:00 2019-04-30 00:00:00 Case Management Josy Chaudhary [facility] 1.20.114 350.1.13.10 4.2.7.2.686 [id number] [facility] 2019-04-29 15:40:17 2019-04-29 16:18:51 [facility] 1.2840.114 350.1.13.10 4.2.7.2.686 [id number] [facility] Results Test Description Test Time Test Comments Results Result Co mments Source [facility] CenterRHO (D) IMMUNE [id number] 16:36:33* Test Item Value Reference Range Interpretation Comme nts RHIG CANDIDATE? (test code = 5188) No- see comment Patient is not a candidate for RhIg- Patient is Rh Positive.Performed at [facility] Laboratory Services - ADC Blood [address] [place], [place] [id number] Free: [phone] No. [id number] [facility] Medical CenterHepatitis B Surface [id number] 12:56:12 * Test Item Value Reference Range Interpretation Comme nts HBsAg Semi-Quantitative (fredy t code = 5195-3) 0.10 Negative [facility] CenterHIV 1/2 Ag-Ab with Ibjmzb9526-07-50 09:08:51* Test Item Value Reference Range Interpretation Comme nts HIV Semi-quantitative (test code = 56594-0) 0.18 Negative TIERRA (test code = TIERRA) Non-reactive for HIV-1 antigen and HIV-1/HIV-2 antibodies. ?No laboratory evidence of HIV infection. ?Repeat in 2-4 weeks if acute HIV infection is suspected. [facility] Medical CenterCentral Neuraxial [id number] 09:00:00 Xenia Angel MD ? ? 09/25/2023 [...] air and catheter ?Guidance with: landmark technique}Epidural/Spinal [place] and/or Catheter: ?Epidural/Spinal Kit: BBraun ?Needle Type: [...] mastisol then tegaderm and tape. No apparent complications.[facility] CenterType and Screen - ONCE [id number] 08:11:00* Test Item Value Reference Range Interpretation Comme nts ABO & RH (test code = 20) O Positive IAT (test code = 1185) Negative [facility] CenterPOCT Urinalysis w/o Specific [id number] 22:26:00* Test Item Value Reference Range Interpretation [...] = 3257) n/a Negative - Negati ve [facility] Medical CenterComp. Metabolic Panel (75898)2023-09-16 10:09:50* Test Item Value Reference Range Interpretation Comme nts NA (test code = 4297279652) 135 mmol/L 135-145 K (test code = 0336579967) 3.6 mmol/L 3.5-5.0 CL (test code = 2561808722) 105 mmol/L 98-108 CO2 TOTAL (test code = 4159201591) 25 mmol/L 23-31 AGAP (test code = 3170434866) 5 2-16 BUN (test code = 4455105549) 4 mg/dL 7-23 L GLUCOSE (test code = 9202607661) 88 mg/dL 70-110 CREATININE (test code = 8123383131) 0.49 mg/dL 0.50-1.04 L TOTAL BILI (test code = 1133296870) 1.1 mg/dL 0.1-1.1 CALCIUM (test code = 5685416572) 8.6 mg/dL 8.6-10.6 T PROTEIN (test code = 8644885043) 6.7 g/dL 6.3-8.2 ALBUMIN (test code = 4493148197) 3.3 g/dL 3.5-5.0 L ALK PHOS (test code = 0597948648) 131 U/L 34-122 H ALTv (test code = 1742-6) 17 U/L 5-35 AST(SGOT) (test code = 3566636308) 25 U/L 13-40 eGFR (test code = 74279-3) 135.2 mL/min/1.73m2 CKD-EPI eGFR (2020). Assuming creatinine has been stable day-to-day for at least three months, the eGFR indicates Category G1 (>= 90 mL/min/1.73 m2) Lab Interpretation (test code = 90298-0) Abnormal [facility] with Csep9033-56-30 09:36:47* Test Item Value Reference Range Interpretation Comme nts WBC (test code = 6690-2) 6.44 See_Comment [Automated CHEQROOMa Gyft] The system which generated this result transmitted reference range: 4.30 - 11.10 10*3/?L. The reference range was not used to interpret this result as normal/abnormal. RBC (test code = 789-8) 3.72 See_Comment L [Automated CHEQROOMa Gyft] The system which generated this result transmitted [...] g/dL 31.6-35.1 L RDW-SD (test code = 14976-7) 47.0 fL 39.0-49.9 RDW-CV (test code = 788-0) 17.6 % 12.0-15.5 H PLT (test code = 777-3) 184 See_Comment [Automated messa ge] The system which generated this result transmitted reference range: 166 - 358 10*3/?L. The reference range was not used to interpret this result as normal/abnormal. MPV (test code = 67484-5) 10.1 fL 9.5-12.9 NRBC/100 WBC (test code = 3527520539) 0.0 See_Comment [Automated [employer] ssage] The system which generated this result transmitted reference range: 0.0 - 10.0 /100 WBCs. The reference range was not used to interpret this result as normal/abnormal. NRBC x10^3 (test code = 6876879146) See_Comment [Automated messa ge] The system which generated this result transmitted reference range: 10*3/?L. The reference range was not used to interpret this result as normal/abnormal. GRAN MAT (NEUT) % (test code = 770-8) 66.7 % IMM GRAN % (test code = 1767860539) 0.80 % LYMPH % (test code = 736-9) 24.1 % MONO % (test code = 5905-5) 6.5 % EOS % (test code = 713-8) 1.6 % BASO % (test code = 706-2) 0.3 % GRAN MAT x10^3(ANC) (test code = 9675635304) 4.30 10*3/uL 1.88-7.09 IMM GRAN x10^3 (test code = 4441547813) 0.05 10*3/uL 0.00-0.06 LYMPH x10^3 (test code = 731-0) 1.55 10*3/uL 1.32-3.29 MONO x10^3 (test code = 742-7) 0.42 10*3/uL 0.33-0.92 EOS x10^3 (test code = 711-2) 0.10 10*3/uL 0.03-0.39 BASO x10^3 (test code = 704-7) 0.01-0.07 Lab Interpretation (test code = 00524-8) Abnormal [facility] Urinalysis w/o Specific Dxgzzad7531-30-36 22:18:00* Test Item Value Reference Range Interpretation [...] = 3257) n/a Negative - Negati ve [facility] URINALYSIS W/O SPECIFIC [id number] 17:06:00* Test Item Value Reference Range Interpretation [...] = 3257) n/a Negative - Negati ve [facility] Medical CenterVZV ANTIBODY [id number] 15:22:41* Test Item Value Reference Range Interpretation Comme [facility] VZV IgG antibody (test code = 94768-7) Negative Negative TIERRA (test code = TIERRA) Positive - Indicat es the patient was exposed to VZV through infection or vaccination.Negative - Indicates the patient could be susceptible to VZV infection.Equivocal - A second specimen should be sent for testing. [facility] Medical CenterRUBELLA SCREEN [id number] 15:22:41* Test Item Value Reference Range Interpretation Comme [facility] Rubella screen IgG (test code = 4675391914) Positive Negative TIERRA (test code = TIERRA) Positive - Indicat es the patient was exposed to Rubella through infection or vaccination.Negative - Indicates the patient could be susceptible to Rubella infection.Equivocal - A second specimen should be sent. [facility] Medical CenterSYPHILIS IGG/[id number] 15:21:40* Test Item Value Reference Range Interpretation Comme [facility] Syphilis IgG/IgM (test code = 90381-2) Non-reactive Non-reactive TIERRA (test code = TIERRA) Non-reactive - No serologic evidence of T. pallidum infection. Cannot exclude incubating or early syphilis. Submit a second specimen in 2-4 weeks if syphilis is clinically suspected. Equivocal - Further testing to follow. Reactive - Further testing to follow. Lab Interpretation (test code = 72327-6) Normal [facility] CenterPOCT GLUCOSE (AUTOMATED)2023-08-22 01:48:28* Test Item Value Reference Range Interpretation Comme [facility] POCT GLU (test code = 8924208984) 133 mg/dL 70-110 H Lab Interpretation (test cod e = 30197-7) Abnormal [facility] Medical CenterTransthoracic echo (TTE)2023-08-21 20:30:27* Test Item Value Reference Range Interpretation Comme [facility] Height (test code = 5333885584) 65 in Weight (test code = 6292277576) 219 lbs Systolic BP (test code = 6661351249) 106 mmHg Diastolic BP (test code = 2962369675) 60 mmHg Heart Rate (test code = 5426940817) 90 bpm LVOT stroke volume (test code = 3556090460) 55.30 cm3 EF(Teich) (test code = 0651322394) 74.90 % LVIDD (test code = 3637697755) 5.20 cm LVIDS (test code = 5208773523) 2.90 cm Left Ventricular End Systolic Volume by Teichholz Method (test code = 9239223) 32.2 mL Left Ventricular End Diastolic Volume by Teichholz Method (test code = 5158106) 128.3 mL IVS (test code = 7539486307) 0.66 cm LVPWD (test code = 0575748979) 1.10 cm LVOT diameter (test code = 8966803983) 1.86 cm LVOT area (test code = 0805716349) 2.70 cm2 FS (test code = 9826401973) 44 % MV Peak E Lakshmi (test code = 6580355963) 97.3 cm/s MV Peak A Lakshmi (test code = 5945282254) 80.6 cm/s E/A ratio (test code = 3153466951) 1.21 ratio E wave decelartion time (test code = 6386670514) 0.19 s MV E/e' septal (test code = 0187079099) 11.6 cm/s LA Volume Index (BP) (test code = 8493858242) 37.1 mL/m2 LA volume (BP) (test code = 3076686460) 76.3 mL LVOT peak lakshmi (test code = 9925403160) 108.4 cm/s LVOT mn grad (test code = 6813830183) 2.5 mmHg BSA (test code = 4569572787) 2.06 m2 LA size (test code = 2765381077) 4.0 cm LAV(MOD-sp2) (test code = 3772132620) 54.20 mL LAV(MOD-sp4) (test code = 4485117077) 82.70 mL Tapse (test code = 6294011547) 2.35 cm AV LVOT peak gradient (test code = 7530326718) 4.7 mmHg LVOT peak VTI (test code = 2792844520) 20.3 cm LV V1 mean (test code = 1278745141) 74.60 cm/s MV Prop V (test code = 9494467727) 70.10 cm/s Ao root diam (test code = 2952038414) 3.60 cm Aortic root (test code = 8674016986) 3.6 cm Ao root annulus (test code = 8015212503) 3.6 cm PW (test code = 5531461045) 1.10 cm 0.6-1.1 EF - 2D (test code = 94917007) 74.90 % Interventricular Septum Diastolic Thickness by 2D (test code = 3307423) 0.66 cm Aortic valve mean velocity (test code = 9345427348) 123.5 cm/s Ao peak lakshmi (test code = 7124757072) 177.8 cm/s Ao VTI (test code = 0711312734) 34.6 cm AV area by cont VTI (test code = 1488076021) 1.6 cm2 AV area peak lakshmi (test code = 9402364666) 1.7 cm2 Ao max PG (test code = 2775171601) 12.60 mm[Hg] AV peak gradient (test code = 3489127536) 12.6 mmHg AV valve area (test code = 7512689386) 1.60 cm2 AV mean gradient (test code = 0567554347) 6.5 mmHg MV mean gradient (test code = 2474018454) 1.45 mmHg MV peak gradient (test code = 5485519767) 3.0 mmHg MV pk lakshmi (test code = 8379299378) 86.1 cm/s MV valve area by continuity eq (test code = 0059313754) 2.70 cm2 MV VTI (test code = 8774288577) 20.5 cm MV V2 mean (test code = 8915554762) 56.30 cm/s Radiology Study observation (narrative) (test code = 36352-7) TIERRA (test code = TIERRA) ?Left?Ventricle: Left ventricle size is normal. Increased wall thickness. There is concentric remodeling. Normal wall motion. Hyperdynamic systolic function with a visually estimated EF of 65 - 70%. Normal diastolic function. ?Right?Ventricle: Right ventricle size is normal. Normal systolic function. TAPSE is 2.35 cm. Roscoe Cuellar, [facility]LEardiovascular Medicine FellowDundy County Hospital VentricleLeft ventricle size is normal. Increased [...] apical, parasternal and subcostal views were obtained. [facility] CenterTHYROID STIMULATING [id number] 17:48:00 * Test Item Value Reference Range Interpretation Comme nts TSH (test code = 4824517335) 0.51 See_Comment [Automated messa ge] The system which generated this result transmitted reference range: 0.45 - 4.70 mIU/L. The reference range was not used to interpret this result as normal/abnormal. Lab Interpretation (test code = 24890-1) Normal [facility] METABOLIC PANEL (NA, K, CL, CO2, GLUCOSE, BUN, CREATININE, CA)2023-08-21 17:14:33* Test Item Value Reference Range Interpretation Comme nts NA (test code = 6347031301) 132 mmol/L 135-145 L K (test code = 5606185241) 4.0 mmol/L 3.5-5.0 CL (test code = 8193885327) 106 mmol/L 98-108 CO2 TOTAL (test code = 6559242596) 17 mmol/L 23-31 L AGAP (test code = 5893628426) 9 2-16 BUN (test code = 3128248762) 5 mg/dL 7-23 L GLUCOSE (test code = 4686291324) 75 mg/dL 70-110 CREATININE (test code = 1407838607) 0.44 mg/dL 0.50-1.04 L CALCIUM (test code = 4395513860) 8.4 mg/dL 8.6-10.6 L eGFR (test code = 50381-1) 138.7 mL/min/1.73m2 CKD-EPI eGFR (2020). Assuming creatinine has been stable day-to-day for at least three months, the eGFR indicates Category G1 (>= 90 mL/min/1.73 m2) Lab Interpretation (test code = 66942-2) Abnormal [facility] CenterHIV 1/2 AG-AB WITH [id number] 15:05:53* Test Item Value Reference Range Interpretation Comme nts HIV Semi-quantitative (test code = 68036-1) 0.11 Negative TIERRA (test code = TIERRA) Non-reactive for HIV-1 antigen and HIV-1/HIV-2 antibodies. ?No laboratory evidence of HIV infection. ?Repeat in 2-4 weeks if acute HIV infection is suspected. [facility] CenterHEPATITIS B SURFACE [id number] 15:01:33 * Test Item Value Reference Range Interpretation Comme nts HBsAg Semi-Quantitative (fredy t code = 5195-3) 0.07 Negative [facility] Medical CenterGLYCOSYLATED HEMOGLOBIN (A1C)2023-08-21 14:26:03* Test Item Value Reference Range Interpretation Comme nts HGB A1C (test code = 4548-4) 5.2 % 4.0-5.7 TIERRA (test code = TIERRA) Reference RangesNormal: <5.7%Prediabetes: 5.7 - 6.4%Diabetes: > 6.5% Lab Interpretation (test code = 99496-2) Normal [facility] CenterType and Screen - ONCE Eytsadc5659-59-20 13:34:00* Test Item Value Reference Range Interpretation Comme [facility] ABO & RH (test code = 20) O POSITIVE IAT (test code = 1185) Negative [facility] Medical CenterProthrombin Time / [id number] 02:05:48* Test Item Value Reference Range Interpretation Comme [facility] PROTIME PATIENT (test code = 5964-2) [...] the indications. Lab Interpretation (test code = 12527-9) Normal [facility] Medical CenteraPTT2023-11-30 02:05:48* Test Item Value Reference Range Interpretation Comme [facility] APTT Patient (test code = 3173-2) 27 See_Comment [Automated message] The system which generated this result transmitted reference range: 23 - 38 Seconds. The reference range was not used to interpret this result as normal/abnormal. TIERRA (test code = TIERRA) The [facility] patient population mean normal value for aPTT is 30 seconds. Lab Interpretation (test code = 78732-7) Normal [facility] Medical CenterCBC WITH [id number] 01:28:43* Test Item Value Reference Range Interpretation [...] g/dL 31.6-35.1 L RDW-SD (test code = 70319-7) 45.6 fL 39.0-49.9 RDW-CV (test code = 788-0) 17.0 % 12.0-15.5 H PLT (test code = 777-3) 228 See_Comment [Automated messa ge] The system which generated this result transmitted reference range: 166 - 358 10*3/?L. The reference range was not used to interpret this result as normal/abnormal. MPV (test code = 83965-2) 10.4 fL 9.5-12.9 NRBC/100 WBC (test code = 1220952136) 0.2 See_Comment [Automated [employer] ssage] The system which generated this result transmitted reference range: 0.0 - 10.0 /100 WBCs. The reference range was not used to interpret this result as normal/abnormal. NRBC x10^3 (test code = 9820654204) 0.02 See_Comment [Automated messa ge] The system which generated this result transmitted reference range: 10*3/?L. The reference range was not used to interpret this result as normal/abnormal. GRAN MAT (NEUT) % (test code = 770-8) 75.4 % IMM GRAN % (test code = 9910216035) 0.90 % LYMPH % (test code = 736-9) 17.6 % MONO % (test code = 5905-5) 4.9 % EOS % (test code = 713-8) 0.9 % BASO % (test code = 706-2) 0.3 % GRAN MAT x10^3(ANC) (test code = 3078410527) 6.84 10*3/uL 1.88-7.09 IMM GRAN x10^3 (test code = 6405146754) 0.08 10*3/uL 0.00-0.06 H LYMPH x10^3 (test code = 731-0) 1.60 10*3/uL 1.32-3.29 MONO x10^3 (test code = 742-7) 0.44 10*3/uL 0.33-0.92 EOS x10^3 (test code = 711-2) 0.08 10*3/uL 0.03-0.39 BASO x10^3 (test code = 704-7) 0.03 10*3/uL 0.01-0.07 Lab Interpretation (test code = 56327-8) Abnormal [facility] CenterType and Screen - ONCE [id number] 01:24:00* Test Item Value Reference Range Interpretation Comme nts ABO & RH (test code = 20) O Positive IAT (test code = 1185) Negative [facility] CenterPOCT URINALYSIS W/O SPECIFIC [id number] 16:23:00* Test Item Value Reference Range Interpretation [...] = 3257) n/a Negative - Negati ve [facility] URINALYSIS W SPECIFIC [id number] 13:44:00* Test Item Value Reference Range Interpretation [...] POCT U APPEAR (test code = 3267) [facility] URINALYSIS W SPECIFIC [id number] 18:00:00* Test Item Value Reference Range Interpretation [...] POCT U APPEAR (test code = 3267) [facility] URINALYSIS W/O SPECIFIC [id number] 18:03:00* Test Item Value Reference Range Interpretation [...] = 3257) Trace Negative - Negati ve [facility] CenterPOCT [id number] 18:02:00* Test Item Value Reference Range Interpretation Comme nts POCT PREG (test code = 1605) Positive On board controls acceptable with C Line (test code = 3574) Yes POCT PREG LOT # (test code = 3575) POCT PREG TEST DATE ( test code = 3576) [facility] Medical CenterCOM. METABOLIC PANEL (50338)2022-01-17 03:31:19* Test Item Value Reference Range Interpretation Comme nts NA (test code = 9697023538) 139 mmol/L 135-145 K (test code = 0124062192) 4.2 mmol/L 3.5-5.0 CL (test code = 3945840977) 105 mmol/L 98-108 CO2 TOTAL (test code = 1827231442) 23 mmol/L 23-31 AGAP (test code = 2986135371) 2-16 BUN (test code = 8871481956) 9 mg/dL 7-23 GLUCOSE (test code = 4535946266) 94 mg/dL 70-110 CREATININE (test code = 2003231813) 0.61 mg/dL 0.50-1.04 TOTAL BILI (test code = 7810848677) 0.9 mg/dL 0.1-1.1 CALCIUM (test code = 5167536588) 9.4 mg/dL 8.6-10.6 T PROTEIN (test code = 6782810601) 8.3 g/dL 6.3-8.2 H ALBUMIN (test code = 8587579526) 4.7 g/dL 3.5-5.0 ALK PHOS (test code = 5800645080) 87 U/L 34-122 ALTv (test code = 1742-6) 11 U/L 5-35 AST(SGOT) (test code = 1762933990) 19 U/L 13-40 eGFR (test code = 8455112129) mL/min/1.73m2 TIERRA (test code = TIERRA) Association [...] imaging tests). Lab Interpretation (test code = 97463-3) Abnormal [facility] Medical CenterLIPASE2022-04-28 03:31:19* Test Item Value Reference Range Interpretation Comme nts LIPASE (test code = 3732379812) 68 U/L 0-220 Lab Interpretation (test cod e = 17844-9) Normal [facility] Medical CenterCB WITH [id number] 03:28:58* Test Item Value Reference Range Interpretation Comme nts WBC (test code = 6690-2) See_Comment [Automated messa ge] The system which generated this result transmitted reference range: 4.30 - 11.10 10*3/?L. The reference range was not used to interpret this result as normal/abnormal. RBC (test code = 789-8) See_Comment [Automated CHEQROOMa ge] The system which generated this result [...] 31.9 g/dL 31.6-35.1 RDW-SD (test code = 23760-2) 43.8 fL 39.0-49.9 RDW-CV (test code = 788-0) 15.2 % 12.0-15.5 PLT (test code = 777-3) See_Comment [Automated CHEQROOMa ge] The system which generated this result transmitted reference range: 166 - 358 10*3/?L. The reference range was not used to interpret this result as normal/abnormal. MPV (test code = 68915-5) 11.3 fL 9.5-12.9 NRBC/100 WBC (test code = 5265191399) See_Comment [Automated [employer] ssage] The system which generated this result transmitted reference range: 0.0 - 10.0 /100 WBCs. The reference range was not used to interpret this result as normal/abnormal. NRBC x10^3 (test code = 7592959519) <0.01 See_Comment [Automated CHEQROOMa ge] The system which generated this result transmitted reference range: 10*3/?L. The reference range was not used to interpret this result as normal/abnormal. GRAN MAT (NEUT) % (test code = 770-8) 71.7 % IMM GRAN % (test code = 2297667329) 0.20 % LYMPH % (test code = 736-9) 22.5 % MONO % (test code = 5905-5) 4.2 % EOS % (test code = 713-8) 0.8 % BASO % (test code = 706-2) 0.6 % GRAN MAT x10^3(ANC) (test code = 5622018031) 6.26 10*3/uL 1.88-7.09 IMM GRAN x10^3 (test code = 7670216233) <0.03 0.00-0.06 LYMPH x10^3 (test code = 731-0) 1.96 10*3/uL 1.32-3.29 MONO x10^3 (test code = 742-7) 0.37 10*3/uL 0.33-0.92 EOS x10^3 (test code = 711-2) 0.07 10*3/uL 0.03-0.39 BASO x10^3 (test code = 704-7) 0.05 10*3/uL 0.01-0.07 Lab Interpretation (test code = 44640-2) Abnormal [facility] CenterPOCT [id number] 02:14:00* Test Item Value Reference Range Interpretation Comme nts POCT PREG (test code = 1605) negative On board controls acceptable with C Line (test code = 3574) present POCT PREG LOT # (test code = 3575) [id number] POCT PREG TEST DATE ( test code = 3576) 06/21/2023 Lab Interpretation (test cod e = 77927-7) Normal [facility] Medical CenterUS ABDOMEN [id number] 23:14:22 Cholelithiasis with no evidence of acute [...] reviewed this study and agree with theabove report.[facility] CenterURINALYSIS2019-08-13 19:31:00* Test Item Value Reference Range Interpretation Comme nts APPEARANCE (test code = 3712889598) Slightly Cloudy Clear A COLOR (test code = 0557663859) Yellow Yellow PH (test code = 4374029026) 4.8-8.0 SP GRAVITY (test code = 0849703352) <=1.005 1.003-1.030 GLU U QUAL (test code = 4070816782) Negative Negative BLOOD (test code = 9535730858) Negative Negative KETONES (test code = 7024410866) Negative Negative PROTEIN (test code = 2887-8) Negative Negative UROBILIN (test code = 2619477154) 0.2 mg/dL See_Comment [Automated message] The system which generated this result transmitted reference range: 0-1.0 mg/dL. The reference range was not used to interpret this result as normal/abnormal. BILIRUBIN (test code = 4067564165) Negative Negative NITRITE (test code = 3837421605) Negative Negative LEUK SUMMER (test code = 0179987743) Large Negative A RBC/HPF (test code = 9562695036) See_Comment [Automated message] The system which generated this result transmitted reference range: 0 - 3 HPF. The reference range was not used to interpret this result as normal/abnormal. WBC/HPF (test code = 9076246981) See_Comment H [Automated message] The system which generated this result transmitted reference range: 0 - 5 HPF. The reference range was not used to interpret this result as normal/abnormal. BACTERIA (test code = 5399447661) Moderate Negative A SQ EPITH (test code = 9325903307) HPF Lab Interpretation (test code = 49587-2) Abnormal [facility] CLC OR LCC ONLY - WET [id number] 19:28:00* Test Item Value Reference Range Interpretation Comme nts Wet Prep (test code = 9065343262) No Trichomonas vaginalis present [facility] ONLY - FERN NHGJ5056-40-78 19:24:00* Test Item Value Reference Range Interpretation Comme nts Fern Test (test code = 8830405399) Negative [facility] History and Physical Notes Date/Time Note Provider Source 2023-09-25 01:42:50 vTsumAUxOMrzX0Ej5/J2 4wDrTD1KCNPxxcK0z3P92J lNWLM+qEKM+ll+ILxvHjPi0068-60-99G46:42:50F ormatting of this note is different from the original.TRIAGE HISTORY & PHYSICALIDENTIFYING DATASireniti Ron Valdes is 22 year old, /White, 38w6d, female with STEVE 10/03/2023, by Last Menstrual Period.: 1998MRN: [id number] Care Physician: Kory Gonzales COMPLAINTcontractionsHISTORY OF PRESENT [...] 05/27/18 9w2d2 SAB 01/10/18 7w4d1 SAB 04/24/17 1q4vGGSO MEDICAL HISTORYProblem list:Patient Active Problem ListDiagnosis Date [...] (HEMABATE) injection 250 mcg 250 mcg Intramuscular C0WFJCL0G-VJ IV infusion 1,000 mL 1,000 mL IV Infusion TITRATEFENTanyl PF (SUBLIMAZE (PF)) injection 100 mcg 100 mcg Slow IV Push Y7SEFSceypvije ringers IV infusion 500 mL 500 mL IV Infusion ONCElactated ringers IV infusion 500 mL 500 mL IV Infusion PRN - SEE INSTRUCTIONSlactated ringers IV infusion 500 mL 500 mL IV Infusion PRN - SEE INSTRUCTIONSlidocaine 1% (PF) (XYLOCAINE) injection 0.3 mL 0.3 mL Infiltration PRN - SEE INSTRUCTIONSmethylergonovine (METHERGINE) injection 0.2 mg 0.2 mg Intramuscular U0DSIZfuUGQVZPyrS (CYTOTEC) tablet 200 mcg 200 mcg Rectal PRNondansetron (ZOFRAN (PF)) injection 4 mg 4 mg Slow IV Push J2AUIPmmvngpcv (PITOCIN) 30 units in NS 500 mL [...] Vomiting (N/V). 30 tablet 0 Takingprenatal vit 53-tkea-okvsw-dha (SELECT-OB + DHA) 29 mg iron-1 mg [...] Syphilis ChlamydiaABO & RHDate Value Ref Range Lssutw6009/11/2023 O Positive FinalNo results found for: "HIVMULTIPLEX" No components found for: "HBSHBSAG" Syphilis IgG/IgMDate Value Ref Range Gztiet6808/21/2023 Non-reactive Non-reactive FinalC. trachomatis Nucleic AcidDate Value Ref Range Qbtxng3309/11/2023 Negative Negative FinalIATDate Value Ref Range Emplyz4609/11/2023 Negative FinalVaricella Rubella Glucose Group B Strep CBCVZV IgG antibodyDate Value Ref Range Vihgzz4208/21/2023 Negative Negative FinalRubella screen IgGDate Value Ref Range Leroic1608/21/2023 Positive Negative FinalGLUC 1 HRDate Value Ref Range Ddwfee4809/11/2023 95 (L) 120 - 170 mg/dL FinalNo results found for: "CGBS" HGBDate Value Ref Range Vgmpzc7309/16/2023 8.0 (L) 11.6 - 15.0 g/dL FinalHCTDate Value Ref Range Qhxkvi0809/16/2023 27.4 (L) 35.7 - 45.2 % FinalPLTDate Value Ref Range Hprjip8009/16/2023 184 166 - 358 10*3/?L FinalActive Hospital [...] FOB or others- Feels safe- Seen by medical social worker on 08/22/2023rug use- UDS positive for alprazolam on multiple UDS this , last one on 09/18/23- Seen by medical social worker on 08/22/2023-UDS sent todayHx of [...] detailsVien Pedro Cruz MD 09/25/2023 1:46 AM 47681-2Qursvxw and physical bcpgXA1931-69-58R13:54:15History and physical noteTXT1.2.840.836858.1.13.104.2.7.2.33407 9|[id number] for patient qjfh85214-3Mitxyqa and physical noteLNNARRATIVEFormatted C-CDA narrative text[address] Yste[id number] RIMBZFPKOAOFWKVW8252-94-61I69:54:151.2.840 .417971.1.72.3.15|1.2.840.394951.1.13.104. 2.7.2.727879_[id number] [facility] 2023-09-16 03:28:41 MUPN6lDohs/YWm7NDftw 01TYsPP6yPyzqpjyZ7nupr jge+FF6VZZhAsJz1bONtK/3753-88-23H67:28:41F ormatting of this note is different from the original.ANTEPARTUM HISTORY & PHYSICALIDENTIFYING DATASireniti Ron Valdes is 22 year old, /White, 37w4d, female with STEVE 10/03/2023, by Last Menstrual Period.: 2000MRN: [id number] Care Physician: Krystal Cruzospital Day: 1CHIEF COMPLAINTcontractionsHISTORY OF PRESENT LERLXFJ77 year old @37w4d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 Images from the original note were not included.Venipuncture collection performed by clean technique on the left anticubitus. Total of 1 attempts were made. Slight pressure and a bandage/dressing were applied to the site(s). The patient experienced no complications. The following specimens were processed according to instructions and sent to [facility] laboratories per lab order on 09/11/2023:LT BLUESST 3RED 1LAV 2PPTDK GREEN (LiHep)DK GREEN (SodH)GRAYDK BLUE (K2)DK BLUE (S)ACDBlood CultureNIPT/NTD 83378-7Hfoci MbuzZE4316-19-21V29:52:52Nurse NoteTXT1.2.840.711749.1.13.104.2.7.2 .064073|[id number] for patient ecxi75068-0Zbgcr NoteLNNARRATIVEFormatted C-CDA narrative [id number] JDQWDYCRZXKJHJCPJAJGHL7922-40-86J52: 52:521.2.840.286967.1.72.3.15|1.2.84 0.977468.1.13.104.2.7.2.727879_19836 76581 [facility] 2023-06-03 09:22:55 jVuaNy5BMYZQDHJm2mq8zvd/f/iy0jYtbj7l iFEbRgsUe07yVmcKO+iNaxEy9oA64049-64- 12T09:22:55 Pt is lost to f/u. 38336-1Gjmjqcasa encounter DswkLC3106-74-50T09:23:05Telephone encounter NoteTXT1.2.840.518342.1.13.104.2.7.2 .665397|[id number] for patient gpbg16710-4LsvhLU623333873Blddzugc Garcia [id number] NGNICGROCLAYBRRYODFBBH5230-17-78M89: 23:051.2.840.069119.1.72.3.15|1.2.84 0.740607.1.13.104.2.7.2.727879_18971 73649 Kaity Dixon LVN [facility] 2023-06-03 09:11:26 TDXftsbCBwX7o39XdUnK66yJ7YyQnbipiicX hw18QcatTcNkj7McaUVTEfB/dykA4236-69- 12T09:11:26 Patient has missed six appointments 04/08/23, 05/16/23, 05/20/23, 05/28/23, and 06/02/23. 52151-1Ezcwisyqz encounter BqgvWF6278-24-95S04:12:52Telephone encounter NoteTXT1.2.840.535430.1.13.104.2.7.2 .105019|[id number] for patient dppq55400-6CbiwIO75722223Hjqqtfm [id number] VYSZVGVHJXUUGECONUIHEK9314-82-39R97: 12:521.2.840.342630.1.72.3.15|1.2.84 0.690485.1.13.104.2.7.2.727879_18971 16074 [facility] 09:04:12 USlpM/uDvDuInBkQ5o35kuVMNBk5xNvredKa YKhpASsaXaRkxTdvrNjTAC7ZQfI58609-45- 31T09:04:12 Noted. 57797-0Sgqqvsfzb encounter PveoRF2944-17-72L95:04:22Telephone encounter NoteTXT1.2.840.004455.1.13.104.2.7.2 .325764|8219935179JGHhuwerpvo for patient nsab00775-5VkokIB888381411Ztyyoqlo Garcia [id number] VMNJDPJUDITFZPRZUQMRCA4637-70-99J99: 04:221.2.840.186648.1.72.3.15|1.2.84 0.460176.1.13.104.2.7.2.727879_18879 25229 Kaity Dixon LVN [facility] 2023-05-22 08:47:14 lZl+cXB2ikKExQ8w7Mpu2ljNGtTBPTDL2ymX GDLVJbzcUyBJr2Q0vMWtNwYq6uvz8346-84- 31T08:47:14 Spoke with pt told prescription is at pharmacy and medications would be discussed at appointment. Please review and close 89764-3Scsojnxht encounter KozyOX3969-55-96S03:48:18Telephone encounter NoteTXT1.2.840.231152.1.13.104.2.7.2 .331479|[id number] for patient ubdw54661-4RwuuQW5026071RZ[id number] FISJNVKQRVHRMQUBWQGHGM4894-79-53K87: 48:181.2.840.821350.1.72.3.15|1.2.84 0.084982.1.13.104.2.7.2.727879_18879 48836 NICOLAS Flores [facility] 2023-05-22 07:54:30 gwPb7jlcGOPQoXIZULdG4I3wk4t8IClCw3IT Cfdyp/70PBIglsifnJf+4hDBYNk+T07:54:30 Attempted to call patient, no answer, [place]. [address]-9Gthetwomz encounter TirrCK8909-99-28C39:54:51Telephone encounter NoteTXT1.2.840.546101.1.13.104.2.7.2 .657654|[id number] for patient vodo36444-2VnovWIHXIDYUBM[id number] EUIAAEICWFSUGPEPCMXTXK1251-35-56X14: 54:511.2.840.007604.1.72.3.15|1.2.84 0.090111.1.13.104.2.7.2.727879_18878 10787 [facility] 2023-05-21 16:33:16 4XObbM1TexZISc2FD8EzMfCRtaa8UYYY1njv zgURqrbN+EHYB2ZsQzDU9p51mnAs4204-42- 30T16:33:16 Please call patient and let her know I erx zoloft to the pharmacy. I did not refill promethazine. She has appointment on 05/28 and can be discussed at that time. Any further refills for Zoloft can be discussed at that time as as well. 90826-9Inximsdod encounter BsucLQ9732-57-35G21:36:02Telephone encounter NoteTXT1.2.840.726391.1.13.104.2.7.2 .114683|[id number] for patient opho28951-8XkiwOBNUUHBTBF[address][id number] KHKUDZYCUUOMMMDVSWPZJZ6890-82-51K90: 36:021.2.840.195989.1.72.3.15|1.2.84 0.648478.1.13.104.2.7.2.727879_18874 82156 [facility] 2023-05-21 12:49:39 LNBSOdjgRVpJ+qVQsnSHGGCdLcXgq4VPc5nY mmknN2D7pr1vskGdOMCvvbEhHb579503-57- 30T12:49:39 Called patient and scheduled appointment for 05/28/23. 28915-9Xxiezyrgk encounter LjwxCX5317-08-11O71:49:59Telephone encounter NoteTXT1.2.840.551316.1.13.104.2.7.2 .402667|[id number] for patient kore67342-4HajgUV43401975Jicenvx [id number] LAZADIBENVXPEYXYOCNCKZ7571-42-87W99: 49:591.2.840.176937.1.72.3.15|1.2.84 0.699317.1.13.104.2.7.2.727879_18871 64750 Claudia Chavez [facility] 2023-05-03 18:56:21 6z5MaWa7ipReyGmyV6sMpuGLNO1s6kdjh9k4 WFRNlac9o/GUgJ7FfRlsqk2/oG1n9098-46- 12T18:56:21 Discharge instructions as follows given to [...] brown spotting after a vaginal exam. 2. Harriman, light red and brownish spotting is not [...] twice, 4 hours apart.Do not take any ckgm-zok-uwdexkz medications for an illness unless you have [...] won t go away, even after taking xdzt-cbs-rpmzgck medicines as instructed by your care provider.Changes in vision, including blurry vision, a sensation of flashing lights or spots, or temporary loss of vision.Severe pain or tenderness in your upper stomach area. This may include nausea and vomiting. 40405-3Horka VjepAK3343-86-46E04:57:13Nurse NoteTXT1.2.840.461722.1.13.104.2.7.2 .160326|[id number] for patient honh04580-9WyevLG946487957Yntmi A Black RN[address] Ljn[id number] UFWWXVKIAJVEWWNPPGPWGX1963-19-60R13: 57:131.2.840.395443.1.72.3.15|1.2.84 0.191108.1.13.104.2.7.2.727879_18729 75348 Carmen Reyes RN [facility] 2023-05-03 17:44:55 RoiTr7yu98TqgDPSFsYbthTAiB2fu5eIL1ZX O3inXGSpnPGvuAcw40ZpKNIegrhx5386-22- 12T17:44:55 Patient to ED via [facility] for cramping and spotting. Patient is 18 weeks . . Seen at [facility] clinic. Patient triaged and take to L&D. Report called to July GONZALEZ. 35683-7Ivzffxpsq department Triage dzanWQ9145-50-37L12:45:52[facility] Triage noteTXT1.2.840.933542.1.13.104.2.7.2 .605952|[id number] for patient qbyp18730-1Tqomuqjwe department PwnpOU418824993Lypzjds Darlene Dutton RN[id number] GOHGAEXLUTBHUPFASHKADS7331-54-17V21: 45:521.2.840.785107.1.72.3.15|1.2.84 0.487502.1.13.104.2.7.2.727879_18729 32702 Zach Dutton RN [facility] 2023-04-18 12:11:31 NpnuhDLSe0WSkFr24xkh/1d0kfvSgd1guCT0 Oiz/i+e7vX0/yKAC1VWJhxdyLu9D2958-47- 28T12:11:31 Pt started on zoloft one week ago. States since then she has felt fatigued and nauseous. Harriman spotting with cramping x2 days. LMP 4-7-23, currently 16w 0d . Goes to [facility] clinic. Report given to CARLOS Hernandez. 69330-9Xurfhaidc department Triage gwtjIR7280-52-76M20:18:23[facility] Triage noteTXT1.2.840.632157.1.13.104.2.7.2 .464070|[id number] for patient lyju088491445Qamytzk Fief RN[id number] IRUZKCRTGSDDHPMHAAKDSL6571-36-65A42: 18:231.2.840.710846.1.72.3.15|1.2.84 0.826563.1.13.104.2.7.2.727879_18612 93373 Bonnie Michael CARLOS [facility] 2023-04-17 14:27:19 7FGMNyV7RS/DkW2nyu0LJQl5+t4ir35TV9r9 JgRqKDOvwsOYAOCrewAD3MOU0pL/T14:27:19 Pt states she is having severe side [...] recommendations. DENI CHOI RN 04/17/2023 2:34 PM 39018-3Gtsjfbxbk encounter CbkqFT4789-85-63G22:35:13Telephone encounter NoteTXT1.2.840.796185.1.13.104.2.7.2 .463208|[id number] for patient lhis069863543Sicwht Rodriguez RN[address] StreetWg[id number] YQAXAQNRZISPIOQXNKALNH7885-57-07O08: 35:131.2.840.201926.1.72.3.15|1.2.84 0.480879.1.13.104.2.7.2.727879_18603 82178 Deni Choi RN [facility] 2023-04-17 14:14:18 sbW1bxeToW7tnIlvhDXmNweVseG5Ab/XSi60 FVnUI9s317VYgn3lmM0EYBLS1Z500390-18- 27T14:14:18 Pt is requesting call back, states she is having bad side effects from anti-depressant. Please call [phone] (home) 00632-2Jtkemstke encounter BgkhWZ0112-20-93E93:16:20Telephone encounter NoteTXT1.2.840.324013.1.13.104.2.7.2 .600850|[id number] for patient lrmg9263071SD Allen[address] EsdpZ[id number] YNHQJCCKMAHBVEYROCGFOX4731-01-09E99: 16:201.2.840.742726.1.72.3.15|1.2.84 0.746733.1.13.104.2.7.2.727879_18603 05932 NICOLAS Flores [facility]
[2024-02-17 08:47] VITALS: BP 115/53; TEMP 98.3; O2SAT 100
--- NOTE | 2024-02-18 08:25 | EDPHYS ---
Physician Documentation [facility] Name: Arina Valdes Age: 23 yrs Sex: Female : 2000 Arrival Date: 02/17/2024 Time: 08:06 Bed 12 Private MD: ED Physician Aba Rich HPI: 02/16 16:33 This 23 yrs old Female presents to ER via Ambulatory with complaints of Head ms3 Injury-Adult. 16:33 23-year-old female presents to the emergency department for head injury status post ms3 sheet rock falling off the wall striking her in the face on the right side. Patient denies loss of consciousness, nausea, vomiting.. CLIENT ARCHITECT: 08:25 LMP N/A - control method, Not ll1 Historical: - Allergies: 08:12 No Known Allergies; ap3 - Home Meds: 08:12 BuSpar Oral [Active]; ap3 - PMHx: 08:12 Anxiety; depressive disorder; Heart Murmur; pre eclampsia; UTI; ap3 - Immunization history:: Client reports receiving the 2nd dose of the Covid vaccine. - Infectious Disease History:: Denies. - Social history:: Smoking status: Reported history of juuling and/or vaping. Patient uses alcohol, occasionally. ROS: 16:33 Constitutional: Negative for fever, and chills. Neck: Negative for injury, pain, and ms3 swelling, Cardiovascular: Negative for chest pain, and palpitations. Respiratory: Negative for shortness of breath, cough, wheezing, and pleuritic chest pain, Abdomen/GI: Negative for abdominal pain, nausea, vomiting, diarrhea, and constipation, 16:33 Skin: Positive for hematoma, Exam: 16:33 Constitutional: This is a well developed, well nourished patient who is awake, alert, ms3 and in no acute distress. Head/Face: Normocephalic, atraumatic. Neck: Trachea midline, no cervical lymphadenopathy. Supple, full range of motion without nuchal rigidity, or vertebral point tenderness. No Meningismus. Chest/axilla: Normal chest wall appearance and motion. Nontender with no deformity. Cardiovascular: Regular rate and rhythm with a normal S1 and S2. No gallops, murmurs, or rubs. Normal PMI, no JVD. No pulse deficits. Respiratory: Lungs have equal breath sounds bilaterally, clear to auscultation and percussion. No rales, rhonchi or wheezes noted. No increased work of breathing, no retractions or nasal flaring. Abdomen/GI: Soft, non-tender, with normal bowel sounds. No distension or tympany. No guarding or rebound. No evidence of tenderness throughout. MS/ Extremity: Pulses equal, no cyanosis. Neurovascular intact. Full, normal range of motion. 16:33 Skin: Contusion to right lateral orbit. Vital Signs: 08:10 BP 115 / 53; Pulse 69; Resp 17; Temp 98.3; Pulse Ox 100% ; Weight 98.43 kg; Height 5 ap3 ft. 5 in. ; Pain 5/10; 08:10 Body Mass Index 36.11 (98.43 kg, 165.1 cm) ap3 08:10 Pain Scale: Adult ap3 Adams Coma Score: 08:10 Eye Response: spontaneous(4). Motor Response: obeys commands(6). Verbal Response: ap3 oriented(5). Total: 15. MDM: 08:18 Patient medically screened. ms3 16:33 Differential diagnosis: Contusion of face, Hematoma on face. Data reviewed: vital ms3 signs, nurses notes, and as a result, I will discharge patient. Counseling: I had a detailed discussion with the patient and/or guardian regarding the historical points, exam findings, and any diagnostic results supporting the discharge/admit diagnosis, the need for outpatient follow up, to return to the emergency department if symptoms worsen or persist or if there are any questions or concerns that arise at home. Special discussion: I discussed with the patient/guardian in detail that at this point there is no indication for admission to the hospital. It is understood, however, that if the symptoms persist or worsen the patient needs to return immediately for re-evaluation. ED course: Discussed physical exam findings with patient. Patient to follow-up with primary care physician in 2 to 3 days. Patient or stands and agrees with plan. All questions were answered. Return precautions discussed include worsening symptoms, or any other concerns. Administered Medications: No medications were administered Disposition: 16:42 Chart complete. ms3 Disposition Summary: 02/17/24 08:19 Discharge Ordered Notes: Location: Home ms3 Condition: Stable ms3 Diagnosis - Contusion of other part of head ms3 Followup: ms3 - With: Donavon Hu DO - When: 2 - 3 days - Reason: Recheck today's complaints Discharge Instructions: - Discharge Summary Sheet ms3 - Contusion, Izca-xm-Ylds ms3 Forms: - Medication Reconciliation Form ms3 - Antibiotic Education ms3 - Prescription Opioid Use ms3 - Patient Portal Instructions ms3 - Leadership Thank You Letter ms3 Signatures: Tiffany Park RN RN ap3 Aba Rich DO DO ms3
== END 2024-02-17 08:25 | disposition home or self-care (01) ==
LOC: ER 08:06
DX: S00.83XA Contusion of other part of head, initial encounter (principal)
CPT/HCPCS: 99282

== ENCOUNTER 2024-03-18 12:28 | Emergency (ER) | payer OTHER ==
--- OUTSIDE RECORDS SUMMARY | 2024-03-18 12:44 | XMS REPORT | Continuity of Care Document ---
Author Name Unknown Address [address] [facility] [address] [place] [address] [facility] thconnect Address [address] [facility]. [address] [place] [address] Care Team Providers Care Order Builder Name Role Phone Kory Cruz MD Primary Care Physician [phone] Netta KENNEDY, Olamide Attending Clinician + [phone] Doctor Unassigned, [place] Attending Clinician U Kory Yo MD Attending Clinician [phone] KORY CRUZ Attending Clinician Unavailable Xenia Angel MD Attending Clinician + Agnes Pedraza MD Attending Clinician [phone] ARIELA WILKINSON Attending Clinician ARIELA Dunn Attending Clinician Jose Antonio candelario 2, [facility] Attending Clinician Unavailable MARY AVINA Attending Clinician Unavailable Mary Avina MD Attending Clinician [phone] ELOY CHAVEZ Attending Clinician UnavailNacho Mccarty DO Attending Clinician [phone] Sheldon KENNEDY, Kristal Phelps Attending Clinician + Eloy Chavez MD Attending Clinician + [phone], [facility] Room Attending Clinician Unavailrenu Melton MD, Sunita Segura Attending Clinician [phone] Nurse, [facility] Attending Clinician Amanda Krystal Morel CNM Attending Clinician [phone] Sammy RN, Heidi T Attending Clinician Unavaila Huy Lopez Attending Clinician + HUY MENDOZA Attending Clinician Unavail able SHELLEY OCASIO Attending Clinician Unaphu skelton Ultrasound, [facility] Attending Clinician Unavaila kam Daniels MD, Shelley Attending Clinician + KRYSTAL LOW Attending Clinician UnavailLEEROY Carter Attending Clinician Unavailable YVONNE SIDDIQI Attending Clinician Unavailable Yvonne Rodriguez Attending Clinician [phone] Simi HODGSONSWJennifer Attending Clinician Unadereck ilBroderick Ballesteros DO Attending Clinician [phone] JOSY CHAUDHARY Attending Clinician Unavailable KRISSY GREEN Attending Clinician Unavailable Josy Chaudhary PA-C Attending Clinician [phone] 1, [facility] Attending Clinician Unavailable ARIELA WILKINSON Admitting Clinician KORY Weller Admitting Clinician Unavailable Kory Cruz MD Admitting Clinician [phone] MARY AVINA Admitting Clinician Unavailable Mary Avina MD Admitting Clinician [phone] ELOY CHAVEZ Admitting Clinician Eloy Dempsey MD Admitting Clinician Payers Payer Name Policy Type Policy Number Effective Date Expirati on Date Source [facility] [id number] 2023 00:00:00 MEDICAID PENDING PENDING 2023 00:00:00 2023 00:00:00 [place] OF [place] [id number] 2023 00:00:00 2023 00:00:00 [facility] [id number] 2018 00:00:00 Problems Condition Name Condition Details Condition Category Status Onset Date Resolution Date Last Treatment Date Treating Clinician Comments Source Normal labor Normal labor Disease Active 09-25 00:00: 00 [facility] Liveborn infant, of [place] , born in hospital by vaginal delivery Liveborn , of [place] , born in hospital by vaginal delivery Disease Active 09-25 00:00: 00 [facility] 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 Disease Active 2022-09 00:00: 00 [facility] 37 weeks gestation of 37 weeks gestation of Disease Active 2022-09 00:00: 00 [facility] Drug use complicati ng in third trimester Drug use complicati ng in third trimester Disease Active 2022-09 00:00: 00 [facility] 38 weeks gestation of 38 weeks gestation of Disease Active 2022-09 00:00: 00 [facility] Fall (on) (from) unspecifie d stairs and steps, sequela Fall (on) (from) unspecifie d stairs and steps, sequela Disease Active 2022-09 00:00: 00 [facility] Injury Injury Disease Active 2022-09 00:00: 00 [facility] Fall Fall Disease Active 2022-09 00:00: 00 [facility] High-risk in third trimester High-risk in third trimester Disease Active 2022-09 00:00: 00 [facility] Limited care in third trimester Limited care in third trimester Disease Active 2022-09 00:00: 00 [facility] Cramping affecting , antepartum Cramping affecting , antepartum Disease Active 2022-09 00:00: 00 [facility] 30 weeks gestation of 30 weeks gestation of Disease Active 2022-09 00:00: 00 [facility] 31 weeks gestation of 31 weeks gestation of Disease Active 2022-09 00:00: 00 [facility] uterine contractio ns, antepartum , third trimester uterine contractio ns, antepartum , third trimester Disease Active 2022-09 00:00: 00 [facility] 33 weeks gestation of 33 weeks gestation of Disease Active 2022-09 00:00: 00 [facility] Trichomona l vaginitis during Trichomona l vaginitis during Disease Active 02-14 00:00: 00 [facility] Maternal varicella, non-immune Maternal varicella, non-immune Disease Active 02-12 00:00: 00 [facility] Obesity affecting Obesity affecting Disease Active 02-11 00:00: 00 [facility] Nausea and vomiting during Nausea and vomiting during Disease Active 02-11 00:00: 00 [facility] History of heart murmur in childhood History of heart murmur in childhood Disease Active 02-11 00:00: 00 Overview: Formattin g of this note might be different from the original. Age 12EKG NSR with sinus arrhythmi a. Normal EKG compared to 7. [facility] Family history of autism Family history of autism Disease Active 02-11 00:00: 00 Overview: Formattin g of this note might be different from the original. Patient sister and daughter [facility] Nexplanon insertion Nexplanon insertion Disease Active 2018-09 00:00: 00 [facility] Nexplanon in place Nexplanon in place Disease Active 2018-09 00:00: 00 [facility] Encounter for female control Encounter for female control Disease Active 2018-09 00:00: 00 [facility] Anemia, antepartum , third trimester Anemia, antepartum , third trimester Disease Active 2018-09 00:00: 00 [facility] Obesity (BMI 30-39.9) Obesity (BMI 30-39.9) Disease Active 01-04 00:00: 00 [facility] History of depression History of depression Disease Active 01-04 00:00: 00 [facility] History of anxiety and depression History of anxiety and depression Disease Active 01-04 00:00: 00 [facility] Anxiety during Anxiety during Disease Active 01-04 00:00: 00 [facility] Allergies, Adverse Reactions, Alerts Allergy Name Allergy Type Status Severity Reaction(s) Onset Date Inactive Date Treating Clinician Comments Source NO KNOWN ALLERGIE S Drug Class Active [facility] Social History Social Habit Start Date Stop Date Quantity Comments Source ASSERTION 2023-01-10 00:00:00 [facility] History of tobacco use Passive smoker [facility] Gender identity [facility] Alcohol intake 2023-10-10 00:00:00 2023-10-10 00:00:00 Current non-drinker of alcohol (finding) [facility] Alcoholic beverage intake 2023-09-11 00:00:00 2023-09-11 00:00:00 Current non-drinker of alcohol (finding) [facility] Tobacco Comment 2023-02-11 00:00:00 2023-02-11 00:00:00 elena smokes outside [facility] Tobacco use and exposure 2023-02-11 00:00:00 2023-02-11 00:00:00 Smokeless tobacco non-user [facility] History of Social function 2023-02-11 00:00:2023-02-11 00:00:00 [facility] Exposure to SARS-CoV-2 (event) 2022-01-06 00:00:00 2022-01-16 20:33:00 Unable to assess [facility] Sex assigned at 2000 00:00:00 2000 00:00:00 [facility] Smoking Status Start Date Stop Date Source Never smoked tobacco [facility] Medications Ordered Medication Name Filled Medication Name Start Date Stop Date Current Medication? Ordering Clinician Indication Dosage Frequency Signature (SIG) Comments Components Source SERTraline (ZOLOFT) 50 mg tablet 10-17 00:00: 00 Yes [id number] 50mg Take 1 tablet by mouth in the morning. [facility] busPIRone 10 mg tablet 10-10 00:00: 00 Yes [id number] 10mg Take 1 tablet by mouth in the morning and 1 tablet in the evening. [facility] SERTraline (ZOLOFT) 25 mg tablet 10-10 00:00: 00 10-18 05:59 :00 No [id number] 25mg Take 1 tablet by mouth in the morning for 7 days. [facility] vitamin w/FA tablet 09-26 00:00: 00 Yes [id number] 1{tbl} Take 1 tablet by mouth in the morning. [facility] docusate 100 mg capsule 09-26 00:00: 00 Yes [id number] 200mg Take 2 capsules by mouth once daily as needed for Constipati on. [facility] ferrous sulfate 325 mg (65 mg iron) tablet 09-26 00:00: 00 Yes [id number] 325mg Take 1 tablet by mouth in the morning and 1 tablet in the evening. [facility] ibuprofen 600 mg tablet 09-26 00:00: 00 Yes [id number] 600mg Take 1 tablet by mouth every 6 (six) hours as needed (Pain). Take with food or milk. [facility] witch Gilbert (TUCKS) 50 % topical pad 09-25 16:22: 14 Yes Topical, Q4HPRN, Starting on Fri09/25/23 at 1022, Until Discontinu ed, Routine, rectal/hem orrhoidal [facility] rho(D) immune globulin (RHOGAM) syringe 300 mcg 09-25 16:18: 36 Yes 300ug 300 mcg, Intramuscu lar, ONCE, For 1 dose, Conditiona l, Routine [facility] HYDROcodone -acetaminop hen (NORCO 5) 5-325 mg tablet 1 tablet 09-25 16:18: 06 Yes 1{tbl} 1 tablet, Oral, Q6HPRN, Starting on Fri09/25/23 at 1018, Until Discontinu ed, Routine, Pain (scale 7-10) [facility] ibuprofen (IBU) tablet 600 mg 09-25 16:18: 06 Yes 600mg 600 mg, Oral, Q6HPRN, Starting on Fri09/25/23 at 1018, Until Discontinu ed, Routine, Pain (scale 4-6) [facility] acetaminoph en (TYLENOL) tablet 650 mg 09-25 16:18: 06 Yes 650mg 650 mg, Oral, Q6HPRN, Starting on Fri09/25/23 at 1018, Until Discontinu ed, Routine, Pain (scale 1-3) [facility] diphenhydrA MINE (BENADRYL) tablet 25 mg 09-25 16:18: 06 Yes 25mg 25 mg, Oral, Q6HPRN, Starting on Fri09/25/23 at 1018, Until Discontinu ed, Routine, Sleep, Itching [facility] ondansetron (ZOFRAN (PF)) injection 4 mg 09-25 16:18: 06 Yes 4mg 4 mg, Slow IV Push, Q8HPRN, Starting on Fri09/25/23 at 1018, Until Discontinu ed, Routine, Nausea and Vomiting (N/V) [facility] simethicone (GAS RELIEF (SIMETHICON E)) chewable tablet 160 mg 09-25 16:18: 06 Yes 160mg 160 mg, Oral, PC+HSPRN, Starting on Airam 09/25/23 at 1018, Until Discontinu ed, Routine, Gas [facility] docusate (COLACE) capsule 200 mg 09-25 16:18: 06 Yes 200mg 200 mg, Oral, QDAILYPRN, Starting on Airam 09/25/23 at 1018, Until Discontinu ed, Routine, Constipati on [facility] magnesium hydroxide (MILK OF MAGNESIA) 400 mg/5 mL suspension 30 mL 09-25 16:18: 06 Yes 30mL 30 mL, Oral, QDAILYPRN, Starting on Airam 09/25/23 at 1018, Until Discontinu ed, Routine, Constipati on [facility] benzocaine- menthol (DERMOPLAST ) 20-0.5 % topical spray 09-25 16:18: 06 Yes Topical, PRN, Starting on Airam 09/25/23 at 1018, Until Discontinu ed, Routine, Perineum discomfort [facility] SERTraline (ZOLOFT) tablet 100 mg 09-25 15:00: 00 Yes 100mg 100 mg, Oral, DAILY, First dose on Airam 09/25/23 at 0900, Until Discontinu ed, Routine [facility] fentaNYL-ro pivacaine 2 mcg/mL-0.1 % (PF) in NS 200 mL epidural infusion RTU 09-25 09:30: 00 09-25 14:54 :08 No Epidural, ONCE INTRA PROCEDURE, Starting on Airam 09/25/23 at 0330, Until Airam 09/25/23 at 0854, Routine, Intra-op [facility] lidocaine-e pinephrine (XYLOCAINE W/EPINEPHRI NE) 1.5 %-1:200,000 injection 09-25 09:30: 00 09-25 14:54 :08 No Intraderma l, ONCE INTRA PROCEDURE, Starting on Airam 09/25/23 at 0330, Until Airam 09/25/23 at 0854, Routine, Intra-op [facility] FENTanyl PF (SUBLIMAZE (PF)) injection 100 mcg 09-25 07:40: 08 09-25 16:22 :14 No 100ug 100 mcg, Slow IV Push, Q1HPRN, Starting on Airam 09/25/23 at 0140, Until Airam 09/25/23 at 1022, Routine, contractio n pain without an epidural and SVE < 8 cm and Cat I strip [facility] ondansetron (ZOFRAN (PF)) injection 4 mg 09-25 07:40: 00 09-25 16:22 :14 No 4mg 4 mg, Slow IV Push, Q8HPRN, Nausea and Vomiting (N/V), Starting on Airam 09/25/23 at 0140
Do ses of ondansetro n 16 mg and above need to be administer ed via IV piggyback. For Dose >=24mg ECG monitoring is advisable.
[facility] oxytocin (PITOCIN) 30 units in NS 500 mL IV infusion 09-25 07:38: 50 09-25 16:21 :41 No 2mU/min at 2-40 mL/hr, IV Infusion, TITRATE, Starting on Airam 09/25/23 at 0138, Until Airam 09/25/23 at 1021, ABHAY [facility] oxytocin (PITOCIN) 30 units in NS 500 mL IV infusion 09-25 07:36: 45 09-25 13:45 :00 No 600mL/h 600 mL/hr, IV Infusion, PRN, PPH, Starting on Airam 09/25/23 at 0136, For 1 dose
As instructed by physician at bedside.<b r> [facility] lactated ringers IV infusion 500 mL 09-25 07:36: 45 09-25 16:21 :41 No 500mL at 999 mL/hr, 500 mL, IV Infusion, PRN - SEE INSTRUCTIO NS, Starting on Airam 09/25/23 at 0136, Until Airam 24 at 1021, Routine [facility] D5W-LR IV infusion 1,000 mL 09-25 07:36: 45 09-25 16:21 :40 No 1000mL at 1-125 mL/hr, IV Infusion, TITRATE, Starting on Fri09/25/23 at 0136, Until Fri09/25/23 at 1021, Routine [facility] famotidine 20 mg tablet 2022-09 00:00: 00 09-26 00:00 :00 No [id number] 20mg Take 1 tablet by mouth in the morning and 1 tablet in the evening. [facility] lactated ringers IV infusion 1,000 mL 2022-09 09:30: 00 Yes 1000mL at 125 mL/hr, 1,000 mL, IV Infusion, CONTINUOUS , Starting on Fri09/16/23 at 0330, Until Discontinu ed, Routine [facility] acetaminoph en (TYLENOL) tablet 650 mg 2022-09 09:17: 17 Yes 650mg 650 mg, Oral, Q6HPRN, Starting on Fri09/16/23 at 0317, Until Discontinu ed, Routine, Pain (scale 1-3) [facility] SERTraline 100 mg tablet 2022-09 00:00: 00 09-26 00:00 :00 No [id number] 109 100mg Take 1 tablet by mouth in the morning. [facility] proMETHazin e (PHENERGAN) tablet 25 mg 2022-09 14:29: 24 Yes 25mg 25 mg, Oral, Q6HPRN, Starting on Fri08/22/23 at 0829, Until Discontinu ed, Routine, Nausea and Vomiting (N/V) [facility] diphenhydrA MINE (BENADRYL) tablet 25 mg 2022-09 03:00: 00 08-22 03:19 :00 No 25mg 25 mg, Oral, ONCE, 1 dose, On Fri08/21/23 at 2100, Routine [facility] ferrous sulfate 325 mg (65 mg iron) tablet 2022-09 00:00: 00 09-26 00:00 :00 No [id number] 325mg Take 1 tablet by mouth in the morning. [facility] cyclobenzap rine (FLEXERIL) tablet 10 mg 2022-09 22:15: 00 08-21 22:06 :00 No 10mg 10 mg, Oral, ONCE NOW, 1 dose, On Fri08/21/23 at 1615, Routine [facility] terbutaline (BRETHINE) injection 0.25 mg 2022-09 19:45: 00 08-21 19:08 :00 No .25mg 0.25 mg, Subcutaneo us, ONCE, 1 dose, On Fri08/21/23 at 1345, Routine [facility] lactated ringers IV infusion 1,000 mL 2022-09 18:00: 00 08-21 19:10 :00 No 1000mL at 999 mL/hr, 1,000 mL, IV Infusion, ONCE, 1 dose, On Fri08/21/23 at 1200, Routine [facility] acetaminoph en (TYLENOL) tablet 1,000 mg 2022-09 17:00: 00 08-21 16:12 :00 No 1000mg 1,000 mg, Oral, ONCE, 1 dose, On Fri08/21/23 at 1100, Routine [facility] ferrous sulfate tablet 325 mg 2022-09 15:00: 00 Yes 325mg 325 mg, Oral, DAILY, First dose on Fri08/21/23 at 0900, Until Discontinu ed, Routine [facility] SERTraline (ZOLOFT) tablet 100 mg 2022-09 15:00: 00 Yes 100mg 100 mg, Oral, DAILY, First dose on Fri08/21/23 at 0900, Until Discontinu ed, Routine [facility] diphenhydrA MINE (BENADRYL) tablet 25 mg 2022-09 09:16: 00 08-21 09:24 :00 No 25mg 25 mg, Oral, ONCE, 1 dose, On Fri08/21/23 at 0330, Routine [facility] fluconazole (DIFLUCAN) tablet 150 mg 2022-09 08:00: 00 08-21 08:00 :00 No 150mg 150 mg, Oral, ONCE, 1 dose, On Airam 08/21/23 at 0200, ABHAY
Re ason for Anti-Infec tive: Documented Infection< br>Documen refugio Infection Site: Pelvic
Duration of Therapy: 7 days [facility] alum-mag hydroxide-s imeth (MAG-AL PLUS) 200-200-20 mg/5 mL suspension 30 mL 2022-09 07:05: 45 Yes 30mL 30 mL, Oral, Q6HPRN, Starting on Airam 08/21/23 at 0105, Until Discontinu ed, Routine, Indigestio n [facility] docusate (COLACE) capsule 200 mg 2022-09 07:05: 45 Yes 200mg 200 mg, Oral, QHSPRN, Starting on Airam 08/21/23 at 0105, Until Discontinu ed, Routine, Constipati on [facility] magnesium hydroxide (MILK OF MAGNESIA) 400 mg/5 mL suspension 30 mL 2022-09 07:05: 45 Yes 30mL 30 mL, Oral, QDAILYPRN, Starting on Airam 08/21/23 at 0105, Until Discontinu ed, Routine, Constipati on [facility] ondansetron (ZOFRAN (PF)) injection 4 mg 2022-09 06:45: 00 08-21 06:58 :00 No 4mg 4 mg, Slow IV Push, ONCE, On Airam 08/21/23 at 0045, For 1 dose
Do ses of ondansetro n 16 mg and above need to be administer ed via IV piggyback. For Dose >=24mg ECG monitoring is advisable.
[facility] acetaminoph en (TYLENOL) tablet 1,000 mg 2022-09 06:45: 00 08-21 06:58 :00 No 1000mg 1,000 mg, Oral, ONCE, 1 dose, On Airam 08/21/23 at 0045, Routine [facility] FENTanyl PF (SUBLIMAZE (PF)) injection 100 mcg 2022-09 02:15: 00 08-21 01:26 :00 No 100ug 100 mcg, Slow IV Push, ONCE, 1 dose, On Fri08/20/23 at 2015, Routine [facility] betamethaso ne acet,sod phos (CELESTONE SOLUSPAN) 6 mg/mL injection 12 mg 2022-09 01:45: 00 08-22 01:34 :00 No 12mg 12 mg, Intramuscu lar, Q24H, 2 doses, First dose on Fri08/20/23 at 1945, Last dose on Fri08/21/23 at 1945, Routine [facility] D5W 0.9% NaCl (NS) IV infusion 1,000 mL 2022-09 23:45: 00 08-21 19:39 :48 No 1000mL at 125 mL/hr, 1,000 mL, IV Infusion, CONTINUOUS , Starting on Fri08/20/23 at 1745, Until Fri08/21/23 at 1339, Routine [facility] SERTraline 100 mg tablet 2022-09 00:00: 00 09-11 00:00 :00 No [id number] 109 100mg Take 1 tablet by mouth in the morning. [facility] Nitrofurant oin&Nit. Macrocryst (MACROBID) 100 mg capsule 2022-09 00:00: 00 08-12 05:59 :00 No [id number] 100mg Take 1 capsule by mouth in the morning and 1 capsule in the evening. Do all this for 7 days. [facility] acetaminoph en (TYLENOL) tablet 650 mg 2022-09 10:00: 00 07-29 09:53 :00 No 650mg 650 mg, Oral, ONCE, 1 dose, On Fri07/29/23 at 0400, Routine [facility] SERTraline 100 mg tablet 05-21 00:00: 00 08-04 00:00 :00 No [id number] 109 100mg Take 1 tablet by mouth in the morning. [facility] ondansetron (ZOFRAN (PF)) injection 4 mg 04-18 20:45: 00 04-18 20:21 :00 No 4mg 4 mg, Slow IV Push, ONCE, On Fri04/18/23 at 1545, For 1 dose
Do ses of ondansetro n 16 mg and above need to be administer ed via IV piggyback. For Dose >=24mg ECG monitoring is advisable.
[facility] NaCl 0.9% (NS) bolus infusion 1,000 mL 04-18 20:30: 00 04-18 19:32 :00 No 1000mL at 999 mL/hr, 1,000 mL, IV Infusion, ONCE, 1 dose, On Fri04/18/23 at 1530, STAT [facility] NaCl 0.9% (NS) bolus infusion 1,000 mL 04-18 19:15: 00 04-18 18:27 :00 No 1000mL at 999 mL/hr, 1,000 mL, IV Infusion, ONCE, 1 dose, On Fri04/18/23 at 1415, STAT [facility] metroNIDAZO LE (FLAGYL) 500 mg tablet 04-18 00:00: 00 08-04 00:00 :00 No [id number] 500mg Take 1 tablet by mouth every 12 (twelve) hours. [facility] fluconazole (DIFLUCAN) 150 mg tablet 04-07 00:00: 00 04-08 04:59 :00 No [id number] 150mg Take 1 tablet by mouth once now for 1 dose. [facility] proMETHazin e 25 mg tablet 04-03 00:00: 00 09-26 00:00 :00 No [id number] 25mg Take 1 tablet by mouth every 4 (four) hours as needed for Nausea and Vomiting (N/V). [facility] SERTraline (ZOLOFT) 50 mg tablet 04-03 00:00: 00 05-08 04:59 :00 No [id number] 109 Take 1 tablet by mouth daily for 4 days, THEN 2 tablets daily for 30 days. [facility] vit 33-iron-fol ic-dha (SELECT-OB + DHA) 29 mg iron-1 mg -250 mg combo pack 03-11 00:00: 00 Yes [id number] 1{packe t} Take 1 Packet by mouth in the morning. [facility] vit 33-iron-fol ic-dha (SELECT-OB + DHA) 29 mg iron-1 mg -250 mg combo pack 03-11 00:00: 00 09-26 00:00 :00 No [id number] 1{packe t} Take 1 Packet by mouth in the morning. [facility] proMETHazin e 25 mg tablet 02-18 00:00: 00 04-03 00:00 :00 No [id number] 25mg Take 1 tablet by mouth every 4 (four) hours as needed for Nausea and Vomiting (N/V). [facility] metroNIDAZO LE 500 mg tablet 02-14 00:00: 00 02-15 04:59 :00 No [id number] 2000mg Take 4 tablets by mouth once now for 1 dose. [facility] ondansetron (ZOFRAN (PF)) injection 4 mg 01-17 04:00: 00 01-17 03:11 :00 No 4mg 4 mg, Slow IV Push, ONCE, 1 dose, [facility]01/16/22 at 2300[facility] NaCl 0.9% (NS) bolus infusion 1,000 mL 01-17 04:00: 00 01-17 03:52 :00 No 1000mL at 999 mL/hr, 1,000 mL, IV Infusion, ONCE, 1 dose, On Fri01/16/22 at 2300, ABHAY [facility] ondansetron 4 mg disintegrat ing tablet 01-16 00:00: 00 04-03 00:00 :00 No [id number] 4mg Take 1 tablet by mouth every 8 (eight) hours as needed for Nausea and Vomiting (N/V). [facility] azithromyci n 250 mg tablet 3-28 00:00: 00 02-11 00:00 :00 No [id number] 250mg Take 1 tablet by mouth daily. Take 500 mg day 1, then 250 mg days 2 to 5. [facility] Nitrofurant oin&Nit. Macrocryst 100 mg capsule 05-04 00:00: 00 05-12 04:59 :00 No [id number] 100mg Take 1 capsule by mouth 2 (two) times daily for 7 days. [facility] metroNIDAZO LE 500 mg tablet 04-30 00:00: 00 05-04 00:00 :00 No [id number] 500mg Take 1 tablet by mouth every 12 (twelve) hours. [facility] fluconazole (DIFLUCAN) 200 mg tablet 04-29 00:00: 00 05-04 00:00 :00 No [id number] 200mg Take 1 tablet by mouth daily. [facility] NJX08-vibf, carb,glu-FA -dss-dha (CITRANATAL DHA, ALGAL OIL,) 27 mg iron-1 mg -50 mg-250 mg Cmpk 4-15 00:00: 00 Yes [id number] 9106 Take 1 TAB-CAP/M2 by mouth daily. [facility] Immunizations Ordered Immunization Name Filled Immunization Name Date Status Comments Source SARS-COV-2 COVID-19 VACCINE - (MODERNA) 2021-11-01 00:00:00 Completed [facility] SARS-COV-2 COVID-19 VACCINE - (MODERNA) 2021-11-01 00:00:00 Completed [facility] SARS-COV-2 COVID-19 VACCINE - (MODERNA) 2021-11-01 00:00:00 Completed [facility] SARS-COV-2 COVID-19 VACCINE - (MODERNA) 2021-11-01 00:00:00 Completed [facility] SARS-COV-2 COVID-19 VACCINE - (MODERNA) 2021-11-01 00:00:00 Completed [facility] SARS-COV-2 COVID-19 VACCINE - (MODERNA) 2021-11-01 00:00:00 Completed [facility] SARS-COV-2 COVID-19 VACCINE - (MODERNA) 2021-11-01 00:00:00 Completed [facility] SARS-COV-2 COVID-19 VACCINE - (MODERNA) 2021-11-01 00:00:00 Completed [facility] SARS-COV-2 COVID-19 VACCINE - (MODERNA) 2021-11-01 00:00:00 Completed [facility] SARS-COV-2 COVID-19 VACCINE - (MODERNA) 2021-11-01 00:00:00 Completed [facility] SARS-COV-2 COVID-19 VACCINE - (MODERNA) 2021-11-01 00:00:00 Completed [facility] SARS-COV-2 COVID-19 VACCINE - (MODERNA) 2021-11-01 00:00:00 Completed [facility] SARS-COV-2 COVID-19 VACCINE - (MODERNA) 2021-11-01 00:00:00 Completed [facility] SARS-COV-2 COVID-19 VACCINE - (MODERNA) 2021-11-01 00:00:00 Completed [facility] SARS-COV-2 COVID-19 VACCINE - (MODERNA) 2021-11-01 00:00:00 Completed [facility] SARS-COV-2 COVID-19 VACCINE - (MODERNA) 2021-11-01 00:00:00 Completed [facility] SARS-COV-2 COVID-19 VACCINE - (MODERNA) 2021-11-01 00:00:00 Completed [facility] SARS-COV-2 COVID-19 VACCINE - (MODERNA) 2021-11-01 00:00:00 Completed [facility] SARS-COV-2 COVID-19 VACCINE - (MODERNA) 2021-11-01 00:00:00 Completed [facility] SARS-COV-2 COVID-19 VACCINE - (MODERNA) 2021-11-01 00:00:00 Completed [facility] SARS-COV-2 COVID-19 VACCINE - (MODERNA) 2021-11-01 00:00:00 Completed [facility] SARS-COV-2 COVID-19 VACCINE - (MODERNA) 2021-06-08 00:00:00 Completed [facility] SARS-COV-2 COVID-19 VACCINE - (MODERNA) 2021-06-08 00:00:00 Completed [facility] SARS-COV-2 COVID-19 VACCINE - (MODERNA) 2021-06-08 00:00:00 Completed [facility] SARS-COV-2 COVID-19 VACCINE - (MODERNA) 2021-06-08 00:00:00 Completed [facility] SARS-COV-2 COVID-19 VACCINE - (MODERNA) 2021-06-08 00:00:00 Completed [facility] SARS-COV-2 COVID-19 VACCINE - (MODERNA) 2021-06-08 00:00:00 Completed [facility] SARS-COV-2 COVID-19 VACCINE - (MODERNA) 2021-06-08 00:00:00 Completed [facility] SARS-COV-2 COVID-19 VACCINE - (MODERNA) 2021-06-08 00:00:00 Completed [facility] SARS-COV-2 COVID-19 VACCINE - (MODERNA) 2021-06-08 00:00:00 Completed [facility] SARS-COV-2 COVID-19 VACCINE - (MODERNA) 2021-06-08 00:00:00 Completed [facility] SARS-COV-2 COVID-19 VACCINE - (MODERNA) 2021-06-08 00:00:00 Completed [facility] SARS-COV-2 COVID-19 VACCINE - (MODERNA) 2021-06-08 00:00:00 Completed [facility] SARS-COV-2 COVID-19 VACCINE - (MODERNA) 2021-06-08 00:00:00 Completed [facility] SARS-COV-2 COVID-19 VACCINE - (MODERNA) 2021-06-08 00:00:00 Completed [facility] SARS-COV-2 COVID-19 VACCINE - (MODERNA) 2021-06-08 00:00:00 Completed [facility] SARS-COV-2 COVID-19 VACCINE - (MODERNA) 2021-06-08 00:00:00 Completed [facility] SARS-COV-2 COVID-19 VACCINE - (MODERNA) 2021-06-08 00:00:00 Completed [facility] SARS-COV-2 COVID-19 VACCINE - (MODERNA) 2021-06-08 00:00:00 Completed [facility] SARS-COV-2 COVID-19 VACCINE - (MODERNA) 2021-06-08 00:00:00 Completed [facility] SARS-COV-2 COVID-19 VACCINE - (MODERNA) 2021-06-08 00:00:00 Completed [facility] SARS-COV-2 COVID-19 VACCINE - (MODERNA) 2021-06-08 00:00:00 Completed [facility] Influenza Virus Vaccine Quad .5 mL IM 6+ MO 2019-06-29 00:00:00 Completed [facility] Influenza Virus Vaccine Quad .5 mL IM 6+ MO 2019-06-29 00:00:00 Completed [facility] Influenza Virus Vaccine Quad .5 mL IM 6+ MO 2019-06-29 00:00:00 Completed [facility] Influenza Virus Vaccine Quad .5 mL IM 6+ MO 2019-06-29 00:00:00 Completed [facility] Influenza Virus Vaccine Quad .5 mL IM 6+ MO (FLUZONE/FLULAVAL/FL UARIX) 2019-06-29 00:00:00 Completed [facility] Influenza Virus Vaccine Quad .5 mL IM 6+ MO (FLUZONE/FLULAVAL/FL UARIX) 2019-06-29 00:00:00 Completed [facility] Influenza Virus Vaccine Quad .5 mL IM 6+ MO (FLUZONE/FLULAVAL/FL UARIX) 2019-06-29 00:00:00 Completed [facility] Influenza Virus Vaccine Quad .5 mL IM 6+ MO (FLUZONE/FLULAVAL/FL UARIX) 2019-06-29 00:00:00 Completed [facility] Influenza Virus Vaccine Quad .5 mL IM 6+ MO 2019-06-29 00:00:00 Completed [facility] Influenza Virus Vaccine Quad .5 mL IM 6+ MO 2019-06-29 00:00:00 Completed [facility] Influenza Virus Vaccine Quad .5 mL IM 6+ MO 2019-06-29 00:00:00 Completed [facility] Influenza Virus Vaccine Quad .5 mL IM 6+ MO 2019-06-29 00:00:00 Completed [facility] Influenza Virus Vaccine Quad .5 mL IM 6+ MO 2019-06-29 00:00:00 Completed [facility] Influenza Virus Vaccine Quad .5 mL IM 6+ MO 2019-06-29 00:00:00 Completed [facility] Influenza Virus Vaccine Quad .5 mL IM 6+ MO 2019-06-29 00:00:00 Completed [facility] Influenza Virus Vaccine Quad .5 mL IM 6+ MO 2019-06-29 00:00:00 Completed [facility] Influenza Virus Vaccine Quad .5 mL IM 6+ MO 2019-06-29 00:00:00 Completed [facility] Influenza Virus Vaccine Quad .5 mL IM 6+ MO 2019-06-29 00:00:00 Completed [facility] Influenza Virus Vaccine Quad .5 mL IM 6+ MO 2019-06-29 00:00:00 Completed [facility] Influenza Virus Vaccine Quad .5 mL IM 6+ MO 2019-06-29 00:00:00 Completed [facility] Influenza Virus Vaccine Quad .5 mL IM 6+ MO 2019-06-29 00:00:00 Completed [facility] Influenza Virus Vaccine Quad .5 mL IM 6+ MO 2019-06-29 00:00:00 Completed [facility] Influenza Virus Vaccine Quad .5 mL IM 6+ MO 2019-06-29 00:00:00 Completed [facility] Influenza Virus Vaccine Quad .5 mL IM 6+ MO 2019-06-29 00:00:00 Completed [facility] TDAP (ADACEL) VACCINE 2019-05-27 00:00:00 Completed [facility] TDAP (ADACEL) VACCINE 2019-05-27 00:00:00 Completed [facility] TDAP (ADACEL) VACCINE 2019-05-27 00:00:00 Completed [facility] TDAP (ADACEL) VACCINE 2019-05-27 00:00:00 Completed [facility] TDAP (ADACEL) VACCINE 2019-05-27 00:00:00 Completed [facility] TDAP (ADACEL) VACCINE 2019-05-27 00:00:00 Completed [facility] TDAP (ADACEL) VACCINE 2019-05-27 00:00:00 [facility] TDAP (ADACEL) VACCINE 2019-05-27 00:00:00 [facility] TDAP (ADACEL) VACCINE 2019-05-27 00:00:00 [facility] TDAP (ADACEL) VACCINE 2019-05-27 00:00:00 [facility] TDAP (ADACEL) VACCINE 2019-05-27 00:00:00 [facility]pleted [facility] TDAP (ADACEL) VACCINE 2019-05-27 00:00:00 Completed [facility] TDAP (ADACEL) VACCINE 2019-05-27 00:00:00 Completed [facility] TDAP (ADACEL) VACCINE 2019-05-27 00:00:00 Completed [facility] TDAP (ADACEL) VACCINE 2019-05-27 00:00:00 Completed [facility] TDAP (ADACEL) VACCINE 2019-05-27 00:00:00 Completed [facility] TDAP (ADACEL) VACCINE 2019-05-27 00:00:00 Completed [facility] TDAP (ADACEL) VACCINE 2019-05-27 00:00:00 Completed [facility] TDAP (ADACEL) VACCINE 2019-05-27 00:00:00 Completed [facility] TDAP (ADACEL) VACCINE 2019-05-27 00:00:00 Completed [facility] TDAP (ADACEL) VACCINE 2019-05-27 00:00:00 Completed [facility] TDAP (ADACEL) VACCINE 2019-05-27 00:00:00 [facility] TDAP (ADACEL) VACCINE 2019-05-27 00:00:00 Completed [facility] TDAP (ADACEL) VACCINE 2019-05-27 00:00:00 [facility] TDAP (ADACEL) VACCINE 2019-05-27 00:00:00 [facility] TDAP (ADACEL) VACCINE 2019-04-01 00:00:00 [facility]pleted [facility] TDAP (ADACEL) VACCINE 2019-04-01 00:00:00 [facility]pleted [facility] TDAP (ADACEL) VACCINE 2019-04-01 00:00:00 Completed [facility] TDAP (ADACEL) VACCINE 2019-04-01 00:00:00 Completed [facility] TDAP (ADACEL) VACCINE 2019-04-01 00:00:00 Completed [facility] TDAP (ADACEL) VACCINE 2019-04-01 00:00:00 [facility]pleted [facility] TDAP (ADACEL) VACCINE 2019-04-01 00:00:00 [facility]pleted [facility] TDAP (ADACEL) VACCINE 2019-04-01 00:00:00 Completed [facility] TDAP (ADACEL) VACCINE 2019-04-01 00:00:00 Completed [facility] TDAP (ADACEL) VACCINE 2019-04-01 00:00:00 Completed [facility] TDAP (ADACEL) VACCINE 2019-04-01 00:00:00 Completed [facility] TDAP (ADACEL) VACCINE 2019-04-01 00:00:00 Completed [facility] TDAP (ADACEL) VACCINE 2019-04-01 00:00:00 Completed [facility] TDAP (ADACEL) VACCINE 2019-04-01 00:00:00 Completed [facility] TDAP (ADACEL) VACCINE 2019-04-01 00:00:00 Completed [facility] TDAP (ADACEL) VACCINE 2019-04-01 00:00:00 Completed [facility] TDAP (ADACEL) VACCINE 2019-04-01 00:00:00 Completed [facility] TDAP (ADACEL) VACCINE 2019-04-01 00:00:00 Completed [facility] TDAP (ADACEL) VACCINE 2019-04-01 00:00:00 Completed [facility] TDAP (ADACEL) VACCINE 2019-04-01 00:00:00 Completed [facility] TDAP (ADACEL) VACCINE 2019-04-01 00:00:00 Completed [facility] TDAP (ADACEL) VACCINE 2019-04-01 00:00:00 Completed [facility] TDAP (ADACEL) VACCINE 2019-04-01 00:00:00 Completed [facility] TDAP (ADACEL) VACCINE 2019-04-01 00:00:00 Completed [facility] TDAP (ADACEL) VACCINE 2019-04-01 00:00:00 Completed [facility] TDAP (ADACEL) VACCINE 2019-04-01 00:00:00 Completed [facility] TDAP (ADACEL) VACCINE 2019-04-01 00:00:00 Completed [facility] TDAP (ADACEL) VACCINE 2019-04-01 00:00:00 Completed [facility] TDAP (ADACEL) VACCINE 2019-04-01 00:00:00 Completed [facility] TDAP (ADACEL) VACCINE 2019-04-01 00:00:00 Completed [facility] TDAP (ADACEL) VACCINE 2019-04-01 00:00:00 Completed [facility] TDAP (ADACEL) VACCINE 2019-04-01 00:00:00 Completed [facility] TDAP (ADACEL) VACCINE 2019-04-01 00:00:00 Completed [facility] TDAP (ADACEL) VACCINE 2019-04-01 00:00:00 Completed [facility] TDAP (ADACEL) VACCINE 2019-04-01 00:00:00 Completed [facility] TDAP (ADACEL) VACCINE 2019-04-01 00:00:00 Completed [facility] TDAP (ADACEL) VACCINE 2019-04-01 00:00:00 Completed [facility] Influenza Virus Vaccine Quad .5 mL IM 6+ MO 2019-01-04 00:00:00 Completed [facility] Influenza Virus Vaccine Quad .5 mL IM 6+ MO 2019-01-04 00:00:00 Completed [facility] Influenza Virus Vaccine Quad .5 mL IM 6+ MO 2019-01-04 00:00:00 Completed [facility] Influenza Virus Vaccine Quad .5 mL IM 6+ MO 2019-01-04 00:00:00 Completed [facility] Influenza Virus Vaccine Quad .5 mL IM 6+ MO 2019-01-04 00:00:00 Completed [facility] Influenza Virus Vaccine Quad .5 mL IM 6+ MO (FLUZONE/FLULAVAL/FL UARIX) 2019-01-04 00:00:00 Completed [facility] Influenza Virus Vaccine Quad .5 mL IM 6+ MO (FLUZONE/FLULAVAL/FL UARIX) 2019-01-04 00:00:00 Completed [facility] Influenza Virus Vaccine Quad .5 mL IM 6+ MO (FLUZONE/FLULAVAL/FL UARIX) 2019-01-04 00:00:00 Completed [facility] Influenza Virus Vaccine Quad .5 mL IM 6+ MO (FLUZONE/FLULAVAL/FL UARIX) 2019-01-04 00:00:00 Completed [facility] Influenza Virus Vaccine Quad .5 mL IM 6+ MO 2019-01-04 00:00:00 Completed [facility] Influenza Virus Vaccine Quad .5 mL IM 6+ MO 2019-01-04 00:00:00 Completed [facility] Influenza Virus Vaccine Quad .5 mL IM 6+ MO 2019-01-04 00:00:00 Completed [facility] Influenza Virus Vaccine Quad .5 mL IM 6+ MO 2019-01-04 00:00:00 Completed [facility] Influenza Virus Vaccine Quad .5 mL IM 6+ MO 2019-01-04 00:00:00 Completed [facility] Influenza Virus Vaccine Quad .5 mL IM 6+ MO 2019-01-04 00:00:00 Completed [facility] Influenza Virus Vaccine Quad .5 mL IM 6+ MO 2019-01-04 00:00:00 Completed [facility] Influenza Virus Vaccine Quad .5 mL IM 6+ MO 2019-01-04 00:00:00 Completed [facility] Influenza Virus Vaccine Quad .5 mL IM 6+ MO 2019-01-04 00:00:00 Completed [facility] Influenza Virus Vaccine Quad .5 mL IM 6+ MO 2019-01-04 00:00:00 Completed [facility] Influenza Virus Vaccine Quad .5 mL IM 6+ MO 2019-01-04 00:00:00 Completed [facility] Influenza Virus Vaccine Quad .5 mL IM 6+ MO 2019-01-04 00:00:00 Completed [facility] Influenza Virus Vaccine Quad .5 mL IM 6+ MO 2019-01-04 00:00:00 Completed [facility] Influenza Virus Vaccine Quad .5 mL IM 6+ MO 2019-01-04 00:00:00 Completed [facility] Influenza Virus Vaccine Quad .5 mL IM 6+ MO 2019-01-04 00:00:00 Completed [facility] Influenza Virus Vaccine Quad .5 mL IM 6+ MO 2019-01-04 00:00:00 Completed [facility] Influenza Virus Vaccine Quad .5 mL IM 6+ MO 2019-01-04 00:00:00 Completed [facility] Influenza Virus Vaccine Quad .5 mL IM 6+ MO 2019-01-04 00:00:00 Completed [facility] Influenza Virus Vaccine Quad .5 mL IM 6+ MO 2019-01-04 00:00:00 Completed [facility] Influenza Virus Vaccine Quad .5 mL IM 6+ MO 2019-01-04 00:00:00 Completed [facility] Influenza Virus Vaccine Quad .5 mL IM 6+ MO 2019-01-04 00:00:00 Completed [facility] Influenza Virus Vaccine Quad .5 mL IM 6+ MO 2019-01-04 00:00:00 Completed [facility] Influenza Virus Vaccine Quad .5 mL IM 6+ MO 2019-01-04 00:00:00 Completed [facility] Influenza Virus Vaccine Quad .5 mL IM 6+ MO 2019-01-04 00:00:00 Completed [facility] Influenza Virus Vaccine Quad .5 mL IM 6+ MO 2019-01-04 00:00:00 Completed [facility] Influenza Virus Vaccine Quad .5 mL IM 6+ MO 2019-01-04 00:00:00 Completed [facility] Influenza Virus Vaccine Quad .5 mL IM 6+ MO 2019-01-04 00:00:00 Completed [facility] Influenza Virus Vaccine Quad .5 mL IM 6+ MO 2019-01-04 00:00:00 Completed [facility] HPV 2015-04-13 00:00:00 Completed [facility] Meningococcal Polysaccharide (groups A, C, Y and W-135) conjugate vaccine (MCV4P) 2015-04-13 00:00:00 Completed [facility] TDAP (ADACEL) VACCINE 2015-04-13 00:00:00 Completed [facility] HPV 2015-04-13 00:00:00 Completed [facility] Meningococcal Polysaccharide (groups A, C, Y and W-135) conjugate vaccine (MCV4P) 2015-04-13 00:00:00 Completed [facility] TDAP (ADACEL) VACCINE 2015-04-13 00:00:00 Completed [facility] HPV 2015-04-13 00:00:00 Completed [facility] HPV 2015-04-13 00:00:00 Completed [facility] Meningococcal Polysaccharide (groups A, C, Y and W-135) conjugate vaccine (MCV4P) 2015-04-13 00:00:00 Completed [facility] TDAP (ADACEL) VACCINE 2015-04-13 00:00:00 Completed [facility] Meningococcal Polysaccharide (groups A, C, Y and W-135) conjugate vaccine (MCV4P) 2015-04-13 00:00:00 Completed [facility] TDAP (ADACEL) VACCINE 2015-04-13 00:00:00 Completed [facility] HPV 2015-04-13 00:00:00 Completed [facility] Meningococcal Polysaccharide (groups A, C, Y and W-135) conjugate vaccine (MCV4P) 2015-04-13 00:00:00 Completed [facility] TDAP (ADACEL) VACCINE 2015-04-13 00:00:00 Completed [facility] HPV 2015-04-13 00:00:00 Completed [facility] Meningococcal Polysaccharide (groups A, C, Y and W-135) conjugate vaccine (MCV4P) 2015-04-13 00:00:00 Completed [facility] TDAP (ADACEL) VACCINE 2015-04-13 00:00:00 Completed [facility] HPV 2015-04-13 00:00:00 Completed [facility] Meningococcal Polysaccharide (groups A, C, Y and W-135) conjugate vaccine (MCV4P) 2015-04-13 00:00:00 Completed [facility] TDAP (ADACEL) VACCINE 2015-04-13 00:00:00 Completed [facility] HPV 2015-04-13 00:00:00 Completed [facility] Meningococcal Polysaccharide (groups A, C, Y and W-135) conjugate vaccine (MCV4P) 2015-04-13 00:00:00 Completed [facility] TDAP (ADACEL) VACCINE 2015-04-13 00:00:00 Completed [facility] HPV 2015-04-13 00:00:00 Completed [facility] Meningococcal Polysaccharide (groups A, C, Y and W-135) conjugate vaccine (MCV4P) 2015-04-13 00:00:00 Completed [facility] TDAP (ADACEL) VACCINE 2015-04-13 00:00:00 Completed [facility] HPV 2015-04-13 00:00:00 Completed [facility] Meningococcal Polysaccharide (groups A, C, Y and W-135) conjugate vaccine (MCV4P) 2015-04-13 00:00:00 Completed [facility] TDAP (ADACEL) VACCINE 2015-04-13 00:00:00 Completed [facility] HPV 2015-04-13 00:00:00 Completed [facility] Meningococcal Polysaccharide (groups A, C, Y and W-135) conjugate vaccine (MCV4P) 2015-04-13 00:00:00 Completed [facility] TDAP (ADACEL) VACCINE 2015-04-13 00:00:00 Completed [facility] HPV 2015-04-13 00:00:00 Completed [facility] Meningococcal Polysaccharide (groups A, C, Y and W-135) conjugate vaccine (MCV4P) 2015-04-13 00:00:00 Completed [facility] TDAP (ADACEL) VACCINE 2015-04-13 00:00:00 Completed [facility] HPV 2015-04-13 00:00:00 Completed [facility] Meningococcal Polysaccharide (groups A, C, Y and W-135) conjugate vaccine (MCV4P) 2015-04-13 00:00:00 Completed [facility] TDAP (ADACEL) VACCINE 2015-04-13 00:00:00 Completed [facility] HPV 2015-04-13 00:00:00 Completed [facility] Meningococcal Polysaccharide (groups A, C, Y and W-135) conjugate vaccine (MCV4P) 2015-04-13 00:00:00 Completed [facility] TDAP (ADACEL) VACCINE 2015-04-13 00:00:00 Completed [facility] HPV 2015-04-13 00:00:00 Completed [facility] Meningococcal Polysaccharide (groups A, C, Y and W-135) conjugate vaccine (MCV4P) 2015-04-13 00:00:00 Completed [facility] TDAP (ADACEL) VACCINE 2015-04-13 00:00:00 Completed [facility] HPV 2015-04-13 00:00:00 Completed [facility] Meningococcal Polysaccharide (groups A, C, Y and W-135) conjugate vaccine (MCV4P) 2015-04-13 00:00:00 Completed [facility] TDAP (ADACEL) VACCINE 2015-04-13 00:00:00 Completed [facility] HPV 2015-04-13 00:00:00 Completed [facility] Meningococcal Polysaccharide (groups A, C, Y and W-135) conjugate vaccine (MCV4P) 2015-04-13 00:00:00 Completed [facility] TDAP (ADACEL) VACCINE 2015-04-13 00:00:00 Completed [facility] HPV 2015-04-13 00:00:00 Completed [facility] Meningococcal Polysaccharide (groups A, C, Y and W-135) conjugate vaccine (MCV4P) 2015-04-13 00:00:00 Completed [facility] TDAP (ADACEL) VACCINE 2015-04-13 00:00:00 Completed [facility] HPV 2015-04-13 00:00:00 Completed [facility] Meningococcal Polysaccharide (groups A, C, Y and W-135) conjugate vaccine (MCV4P) 2015-04-13 00:00:00 Completed [facility] HPV 2015-04-13 00:00:00 Completed [facility] Meningococcal Polysaccharide (groups A, C, Y and W-135) conjugate vaccine (MCV4P) 2015-04-13 00:00:00 Completed [facility] TDAP (ADACEL) VACCINE 2015-04-13 00:00:00 Completed [facility] TDAP (ADACEL) VACCINE 2015-04-13 00:00:00 Completed [facility] HPV 2015-04-13 00:00:00 Completed [facility] Meningococcal Polysaccharide (groups A, C, Y and W-135) conjugate vaccine (MCV4P) 2015-04-13 00:00:00 Completed [facility] TDAP (ADACEL) VACCINE 2015-04-13 00:00:00 Completed [facility] HPV 2015-04-13 00:00:00 Completed [facility] Meningococcal Polysaccharide (groups A, C, Y and W-135) conjugate vaccine (MCV4P) 2015-04-13 00:00:00 Completed [facility] TDAP (ADACEL) VACCINE 2015-04-13 00:00:00 Completed [facility] HPV 2015-04-13 00:00:00 Completed [facility] Meningococcal Polysaccharide (groups A, C, Y and W-135) conjugate vaccine (MCV4P) 2015-04-13 00:00:00 Completed [facility] TDAP (ADACEL) VACCINE 2015-04-13 00:00:00 Completed [facility] HPV 2015-04-13 00:00:00 Completed [facility] Meningococcal Polysaccharide (groups A, C, Y and W-135) conjugate vaccine (MCV4P) 2015-04-13 00:00:00 Completed [facility] TDAP (ADACEL) VACCINE 2015-04-13 00:00:00 Completed [facility] HPV 2015-04-13 00:00:00 Completed [facility] Meningococcal Polysaccharide (groups A, C, Y and W-135) conjugate vaccine (MCV4P) 2015-04-13 00:00:00 Completed [facility] TDAP (ADACEL) VACCINE 2015-04-13 00:00:00 Completed [facility] HPV 2015-04-13 00:00:00 Completed [facility] Meningococcal Polysaccharide (groups A, C, Y and W-135) conjugate vaccine (MCV4P) 2015-04-13 00:00:00 Completed [facility] TDAP (ADACEL) VACCINE 2015-04-13 00:00:00 Completed [facility] HPV 2015-04-13 00:00:00 Completed [facility] Meningococcal Polysaccharide (groups A, C, Y and W-135) conjugate vaccine (MCV4P) 2015-04-13 00:00:00 Completed [facility] TDAP (ADACEL) VACCINE 2015-04-13 00:00:00 Completed [facility] HPV 2015-04-13 00:00:00 Completed [facility] Meningococcal Polysaccharide (groups A, C, Y and W-135) conjugate vaccine (MCV4P) 2015-04-13 00:00:00 Completed [facility] HPV 2015-04-13 00:00:00 Completed [facility] Meningococcal Polysaccharide (groups A, C, Y and W-135) conjugate vaccine (MCV4P) 2015-04-13 00:00:00 Completed [facility] TDAP (ADACEL) VACCINE 2015-04-13 00:00:00 Completed [facility] TDAP (ADACEL) VACCINE 2015-04-13 00:00:00 Completed [facility] HPV 2015-04-13 00:00:00 Completed [facility] Meningococcal Polysaccharide (groups A, C, Y and W-135) conjugate vaccine (MCV4P) 2015-04-13 00:00:00 Completed [facility] TDAP (ADACEL) VACCINE 2015-04-13 00:00:00 Completed [facility] HPV 2015-04-13 00:00:00 Completed [facility] Meningococcal Polysaccharide (groups A, C, Y and W-135) conjugate vaccine (MCV4P) 2015-04-13 00:00:00 Completed [facility] TDAP (ADACEL) VACCINE 2015-04-13 00:00:00 Completed [facility] HPV 2015-04-13 00:00:00 Completed [facility] Meningococcal Polysaccharide (groups A, C, Y and W-135) conjugate vaccine (MCV4P) 2015-04-13 00:00:00 Completed [facility] TDAP (ADACEL) VACCINE 2015-04-13 00:00:00 Completed [facility] HPV 2015-04-13 00:00:00 Completed [facility] Meningococcal Polysaccharide (groups A, C, Y and W-135) conjugate vaccine (MCV4P) 2015-04-13 00:00:00 Completed [facility] TDAP (ADACEL) VACCINE 2015-04-13 00:00:00 Completed [facility] HPV 2015-04-13 00:00:00 Completed [facility] Meningococcal Polysaccharide (groups A, C, Y and W-135) conjugate vaccine (MCV4P) 2015-04-13 00:00:00 Completed [facility] TDAP (ADACEL) VACCINE 2015-04-13 00:00:00 Completed [facility] HPV 2015-04-13 00:00:00 Completed [facility] Meningococcal Polysaccharide (groups A, C, Y and W-135) conjugate vaccine (MCV4P) 2015-04-13 00:00:00 Completed [facility] TDAP (ADACEL) VACCINE 2015-04-13 00:00:00 Completed [facility] HPV 2015-04-13 00:00:00 Completed [facility] Meningococcal Polysaccharide (groups A, C, Y and W-135) conjugate vaccine (MCV4P) 2015-04-13 00:00:00 Completed [facility] TDAP (ADACEL) VACCINE 2015-04-13 00:00:00 Completed [facility] HPV 2015-04-13 00:00:00 Completed [facility] Meningococcal Polysaccharide (groups A, C, Y and W-135) conjugate vaccine (MCV4P) 2015-04-13 00:00:00 Completed [facility] TDAP (ADACEL) VACCINE 2015-04-13 00:00:00 Completed [facility] HPV 2012-06-29 00:00:00 Completed [facility] HPV 2012-06-29 00:00:00 Completed [facility] HPV 2012-06-29 00:00:00 Completed [facility] HPV 2012-06-29 00:00:00 Completed [facility] HPV 2012-06-29 00:00:00 Completed [facility] HPV 2012-06-29 00:00:00 Completed [facility] HPV 2012-06-29 00:00:00 Completed [facility] HPV 2012-06-29 00:00:00 Completed [facility] HPV 2012-06-29 00:00:00 Completed [facility] HPV 2012-06-29 00:00:00 Completed [facility] HPV 2012-06-29 00:00:00 Completed [facility] HPV 2012-06-29 00:00:00 Completed [facility] HPV 2012-06-29 00:00:00 Completed [facility] HPV 2012-06-29 00:00:00 Completed [facility] HPV 2012-06-29 00:00:00 Completed [facility] HPV 2012-06-29 00:00:00 Completed [facility] HPV 2012-06-29 00:00:00 Completed [facility] HPV 2012-06-29 00:00:00 Completed [facility] HPV 2012-06-29 00:00:00 Completed [facility] HPV 2012-06-29 00:00:00 Completed [facility] HPV 2012-06-29 00:00:00 Completed [facility] HPV 2012-06-29 00:00:00 Completed [facility] HPV 2012-06-29 00:00:00 Completed [facility] HPV 2012-06-29 00:00:00 Completed [facility] Tetanus/Diptheria 2009-12-12 00:00:00 Completed [facility] Meningococcal Polysaccharide (groups A, C, Y and W-135) conjugate vaccine (MCV4P) 2009-12-12 00:00:00 Completed [facility] Varicella (varivax)(chicken pox) 2009-12-12 00:00:00 Completed [facility] HEPATITIS A 2009-12-12 00:00:00 Completed [facility] Tetanus/Diptheria 2009-12-12 00:00:00 Completed [facility] Meningococcal Polysaccharide (groups A, C, Y and W-135) conjugate vaccine (MCV4P) 2009-12-12 00:00:00 Completed [facility] Varicella (varivax)(chicken pox) 2009-12-12 00:00:00 Completed [facility] HEPATITIS A 2009-12-12 00:00:00 Completed [facility] Tetanus/Diptheria 2009-12-12 00:00:00 Completed [facility] Meningococcal Polysaccharide (groups A, C, Y and W-135) conjugate vaccine (MCV4P) 2009-12-12 00:00:00 Completed [facility] Varicella (varivax)(chicken pox) 2009-12-12 00:00:00 Completed [facility] HEPATITIS A 2009-12-12 00:00:00 Completed [facility] Tetanus/Diptheria 2009-12-12 00:00:00 Completed [facility] Meningococcal Polysaccharide (groups A, C, Y and W-135) conjugate vaccine (MCV4P) 2009-12-12 00:00:00 Completed [facility] Varicella (varivax)(chicken pox) 2009-12-12 00:00:00 Completed [facility] HEPATITIS A 2009-12-12 00:00:00 Completed [facility] Tetanus/Diptheria 2009-12-12 00:00:00 Completed [facility] Meningococcal Polysaccharide (groups A, C, Y and W-135) conjugate vaccine (MCV4P) 2009-12-12 00:00:00 Completed [facility] Varicella (varivax)(chicken pox) 2009-12-12 00:00:00 Completed [facility] HEPATITIS A 2009-12-12 00:00:00 Completed [facility] Tetanus/Diptheria 2009-12-12 00:00:00 Completed [facility] Meningococcal Polysaccharide (groups A, C, Y and W-135) conjugate vaccine (MCV4P) 2009-12-12 00:00:00 Completed [facility] Varicella (varivax)(chicken pox) 2009-12-12 00:00:00 Completed [facility] HEPATITIS A 2009-12-12 00:00:00 Completed [facility] Tetanus/Diptheria 2009-12-12 00:00:00 Completed [facility] Meningococcal Polysaccharide (groups A, C, Y and W-135) conjugate vaccine (MCV4P) 2009-12-12 00:00:00 Completed [facility] Varicella (varivax)(chicken pox) 2009-12-12 00:00:00 Completed [facility] HEPATITIS A 2009-12-12 00:00:00 Completed [facility] Tetanus/Diptheria 2009-12-12 00:00:00 Completed [facility] Meningococcal Polysaccharide (groups A, C, Y and W-135) conjugate vaccine (MCV4P) 2009-12-12 00:00:00 Completed [facility] Varicella (varivax)(chicken pox) 2009-12-12 00:00:00 Completed [facility] HEPATITIS A 2009-12-12 00:00:00 Completed [facility] Tetanus/Diptheria 2009-12-12 00:00:00 Completed [facility] Meningococcal Polysaccharide (groups A, C, Y and W-135) conjugate vaccine (MCV4P) 2009-12-12 00:00:00 Completed [facility] Varicella (varivax)(chicken pox) 2009-12-12 00:00:00 Completed [facility] Meningococcal Polysaccharide (groups A, C, Y and W-135) conjugate vaccine (MCV4P) 2009-12-12 00:00:00 Completed [facility] Varicella (varivax)(chicken pox) 2009-12-12 00:00:00 Completed [facility] Meningococcal Polysaccharide (groups A, C, Y and W-135) conjugate vaccine (MCV4P) 2009-12-12 00:00:00 Completed [facility] Varicella (varivax)(chicken pox) 2009-12-12 00:00:00 Completed [facility] Meningococcal Polysaccharide (groups A, C, Y and W-135) conjugate vaccine (MCV4P) 2009-12-12 00:00:00 Completed [facility] Varicella (varivax)(chicken pox) 2009-12-12 00:00:00 Completed [facility] HEPATITIS A 2009-12-12 00:00:00 Completed [facility] Tetanus/Diptheria 2009-12-12 00:00:00 Completed [facility] Meningococcal Polysaccharide (groups A, C, Y and W-135) conjugate vaccine (MCV4P) 2009-12-12 00:00:00 Completed [facility] Varicella (varivax)(chicken pox) 2009-12-12 00:00:00 Completed [facility] HEPATITIS A 2009-12-12 00:00:00 Completed [facility] Tetanus/Diptheria 2009-12-12 00:00:00 Completed [facility] Meningococcal Polysaccharide (groups A, C, Y and W-135) conjugate vaccine (MCV4P) 2009-12-12 00:00:00 Completed [facility] Varicella (varivax)(chicken pox) 2009-12-12 00:00:00 Completed [facility] HEPATITIS A 2009-12-12 00:00:00 Completed [facility] Tetanus/Diptheria 2009-12-12 00:00:00 Completed [facility] Meningococcal Polysaccharide (groups A, C, Y and W-135) conjugate vaccine (MCV4P) 2009-12-12 00:00:00 Completed [facility] Varicella (varivax)(chicken pox) 2009-12-12 00:00:00 Completed [facility] HEPATITIS A 2009-12-12 00:00:00 Completed [facility] Tetanus/Diptheria 2009-12-12 00:00:00 Completed [facility] Meningococcal Polysaccharide (groups A, C, Y and W-135) conjugate vaccine (MCV4P) 2009-12-12 00:00:00 Completed [facility] Varicella (varivax)(chicken pox) 2009-12-12 00:00:00 Completed [facility] HEPATITIS A 2009-12-12 00:00:00 Completed [facility] Tetanus/Diptheria 2009-12-12 00:00:00 Completed [facility] Meningococcal Polysaccharide (groups A, C, Y and W-135) conjugate vaccine (MCV4P) 2009-12-12 00:00:00 Completed [facility] Varicella (varivax)(chicken pox) 2009-12-12 00:00:00 Completed [facility] HEPATITIS A 2009-12-12 00:00:00 Completed [facility] Tetanus/Diptheria 2009-12-12 00:00:00 Completed [facility] Meningococcal Polysaccharide (groups A, C, Y and W-135) conjugate vaccine (MCV4P) 2009-12-12 00:00:00 Completed [facility] Varicella (varivax)(chicken pox) 2009-12-12 00:00:00 Completed [facility] HEPATITIS A 2009-12-12 00:00:00 Completed [facility] Tetanus/Diptheria 2009-12-12 00:00:00 Completed [facility] Meningococcal Polysaccharide (groups A, C, Y and W-135) conjugate vaccine (MCV4P) 2009-12-12 00:00:00 Completed [facility] Varicella (varivax)(chicken pox) 2009-12-12 00:00:00 Completed [facility] HEPATITIS A 2009-12-12 00:00:00 Completed [facility] Tetanus/Diptheria 2009-12-12 00:00:00 Completed [facility] Meningococcal Polysaccharide (groups A, C, Y and W-135) conjugate vaccine (MCV4P) 2009-12-12 00:00:00 Completed [facility] Varicella (varivax)(chicken pox) 2009-12-12 00:00:00 Completed [facility] HEPATITIS A 2009-12-12 00:00:00 Completed [facility] Tetanus/Diptheria 2009-12-12 00:00:00 Completed [facility] Meningococcal Polysaccharide (groups A, C, Y and W-135) conjugate vaccine (MCV4P) 2009-12-12 00:00:00 Completed [facility] Varicella (varivax)(chicken pox) 2009-12-12 00:00:00 Completed [facility] HEPATITIS A 2009-12-12 00:00:00 Completed [facility] Tetanus/Diptheria 2009-12-12 00:00:00 Completed [facility] Meningococcal Polysaccharide (groups A, C, Y and W-135) conjugate vaccine (MCV4P) 2009-12-12 00:00:00 Completed [facility] Varicella (varivax)(chicken pox) 2009-12-12 00:00:00 Completed [facility] HEPATITIS A 2009-12-12 00:00:00 Completed [facility] Tetanus/Diptheria 2009-12-12 00:00:00 Completed [facility] Meningococcal Polysaccharide (groups A, C, Y and W-135) conjugate vaccine (MCV4P) 2009-12-12 00:00:00 Completed [facility] Varicella (varivax)(chicken pox) 2009-12-12 00:00:00 Completed [facility] HEPATITIS A 2009-12-12 00:00:00 Completed [facility] Tetanus/Diptheria 2009-12-12 00:00:00 Completed [facility] Meningococcal Polysaccharide (groups A, C, Y and W-135) conjugate vaccine (MCV4P) 2009-12-12 00:00:00 Completed [facility] Varicella (varivax)(chicken pox) 2009-12-12 00:00:00 Completed [facility] HEPATITIS A 2009-12-12 00:00:00 Completed [facility] DTaP, Unspecified Formulation 2003-04-28 00:00:00 Completed [facility] MMR 2003-04-28 00:00:00 Completed [facility] IPV 2003-04-28 00:00:00 Completed [facility] DTaP, Unspecified Formulation 2003-04-28 00:00:00 Completed [facility] MMR 2003-04-28 00:00:00 Completed [facility] IPV 2003-04-28 00:00:00 Completed [facility] DTaP, Unspecified Formulation 2003-04-28 00:00:00 Completed [facility] MMR 2003-04-28 00:00:00 Completed [facility] IPV 2003-04-28 00:00:00 Completed [facility] DTaP, Unspecified Formulation 2003-04-28 00:00:00 Completed [facility] MMR 2003-04-28 00:00:00 Completed [facility] IPV 2003-04-28 00:00:00 Completed [facility] DTaP, Unspecified Formulation 2003-04-28 00:00:00 Completed [facility] MMR 2003-04-28 00:00:00 Completed [facility] IPV 2003-04-28 00:00:00 Completed [facility] DTaP, Unspecified Formulation 2003-04-28 00:00:00 Completed [facility] MMR 2003-04-28 00:00:00 Completed [facility] IPV 2003-04-28 00:00:00 Completed [facility] DTaP, Unspecified Formulation 2003-04-28 00:00:00 Completed [facility] MMR 2003-04-28 00:00:00 Completed [facility] IPV 2003-04-28 00:00:00 Completed [facility] DTaP, Unspecified Formulation 2003-04-28 00:00:00 Completed [facility] MMR 2003-04-28 00:00:00 Completed [facility] IPV 2003-04-28 00:00:00 Completed [facility] DTaP, Unspecified Formulation 2003-04-28 00:00:00 Completed [facility] MMR 2003-04-28 00:00:00 Completed [facility] IPV 2003-04-28 00:00:00 Completed [facility] DTaP, Unspecified Formulation 2003-04-28 00:00:00 Completed [facility] MMR 2003-04-28 00:00:00 Completed [facility] IPV 2003-04-28 00:00:00 Completed [facility] DTaP, Unspecified Formulation 2003-04-28 00:00:00 Completed [facility] MMR 2003-04-28 00:00:00 Completed [facility] IPV 2003-04-28 00:00:00 Completed [facility] DTaP, Unspecified Formulation 2003-04-28 00:00:00 Completed [facility] MMR 2003-04-28 00:00:00 Completed [facility] IPV 2003-04-28 00:00:00 Completed [facility] DTaP, Unspecified Formulation 2003-04-28 00:00:00 Completed [facility] MMR 2003-04-28 00:00:00 Completed [facility] IPV 2003-04-28 00:00:00 Completed [facility] DTaP, Unspecified Formulation 2003-04-28 00:00:00 Completed [facility] MMR 2003-04-28 00:00:00 Completed [facility] IPV 2003-04-28 00:00:00 Completed [facility] DTaP, Unspecified Formulation 2003-04-28 00:00:00 Completed [facility] MMR 2003-04-28 00:00:00 Completed [facility] IPV 2003-04-28 00:00:00 Completed [facility] DTaP, Unspecified Formulation 2003-04-28 00:00:00 Completed [facility] MMR 2003-04-28 00:00:00 Completed [facility] IPV 2003-04-28 00:00:00 Completed [facility] DTaP, Unspecified Formulation 2003-04-28 00:00:00 Completed [facility] MMR 2003-04-28 00:00:00 Completed [facility] IPV 2003-04-28 00:00:00 Completed [facility] DTaP, Unspecified Formulation 2003-04-28 00:00:00 Completed [facility] MMR 2003-04-28 00:00:00 Completed [facility] IPV 2003-04-28 00:00:00 Completed [facility] DTaP, Unspecified Formulation 2003-04-28 00:00:00 Completed [facility] MMR 2003-04-28 00:00:00 Completed [facility] IPV 2003-04-28 00:00:00 Completed [facility] DTaP, Unspecified Formulation 2003-04-28 00:00:00 Completed [facility] MMR 2003-04-28 00:00:00 Completed [facility] IPV 2003-04-28 00:00:00 Completed [facility] DTaP, Unspecified Formulation 2003-04-28 00:00:00 Completed [facility] MMR 2003-04-28 00:00:00 Completed [facility] IPV 2003-04-28 00:00:00 Completed [facility] HIB 4 Dose Schedule 2002-11-11 00:00:00 Completed [facility] Hep B, Adol or Pedi Dosage 2002-11-11 00:00:00 Completed [facility] MMR 2002-11-11 00:00:00 Completed [facility] DTaP, Unspecified Formulation 2002-11-11 00:00:00 Completed [facility] Polio (IPV/OPV) 2002-11-11 00:00:00 Completed [facility] IPV 2002-11-11 00:00:00 Completed [facility] Varicella (varivax)(chicken pox) 2002-11-11 00:00:00 Completed [facility] DTAP 2002-11-11 00:00:00 Completed [facility] Hep B, Adol or Pedi Dosage 2002-11-11 00:00:00 Completed [facility] HIB 4 Dose Schedule 2002-11-11 00:00:00 Completed [facility] DTaP, Unspecified Formulation 2002-11-11 00:00:00 Completed [facility] Polio (IPV/OPV) 2002-11-11 00:00:00 Completed [facility] IPV 2002-11-11 00:00:00 Completed [facility] MMR 2002-11-11 00:00:00 Completed [facility] Varicella (varivax)(chicken pox) 2002-11-11 00:00:00 Completed [facility] DTaP, Unspecified Formulation 2002-11-11 00:00:00 Completed [facility] IPV 2002-11-11 00:00:00 Completed [facility] DTaP, Unspecified Formulation 2002-11-11 00:00:00 Completed [facility] IPV 2002-11-11 00:00:00 Completed [facility] DTaP, Unspecified Formulation 2002-11-11 00:00:00 Completed [facility] IPV 2002-11-11 00:00:00 Completed [facility] DTAP 2002-11-11 00:00:00 Completed [facility] HIB 4 Dose Schedule 2002-11-11 00:00:00 Completed [facility] Hep B, Adol or Pedi Dosage 2002-11-11 00:00:00 Completed [facility] DTaP, Unspecified Formulation 2002-11-11 00:00:00 Completed [facility] MMR 2002-11-11 00:00:00 Completed [facility] IPV 2002-11-11 00:00:00 Completed [facility] Polio (IPV/OPV) 2002-11-11 00:00:00 Completed [facility] Varicella (varivax)(chicken pox) 2002-11-11 00:00:00 Completed [facility] DTAP 2002-11-11 00:00:00 Completed [facility] Hep B, Adol or Pedi Dosage 2002-11-11 00:00:00 Completed [facility] DTaP, Unspecified Formulation 2002-11-11 00:00:00 Completed [facility] HIB 4 Dose Schedule 2002-11-11 00:00:00 Completed [facility] IPV 2002-11-11 00:00:00 Completed [facility] Polio (IPV/OPV) 2002-11-11 00:00:00 Completed [facility] MMR 2002-11-11 00:00:00 Completed [facility] DTaP, Unspecified Formulation 2002-11-11 00:00:00 Completed [facility] Varicella (varivax)(chicken pox) 2002-11-11 00:00:00 Completed [facility] IPV 2002-11-11 00:00:00 Completed [facility] DTAP 2002-11-11 00:00:00 Completed [facility] HIB 4 Dose Schedule 2002-11-11 00:00:00 Completed [facility] Hep B, Adol or Pedi Dosage 2002-11-11 00:00:00 Completed [facility] MMR 2002-11-11 00:00:00 Completed [facility] Polio (IPV/OPV) 2002-11-11 00:00:00 Completed [facility] Varicella (varivax)(chicken pox) 2002-11-11 00:00:00 Completed [facility] DTAP 2002-11-11 00:00:00 Completed [facility] Hep B, Adol or Pedi Dosage 2002-11-11 00:00:00 Completed [facility] HIB 4 Dose Schedule 2002-11-11 00:00:00 Completed [facility] Polio (IPV/OPV) 2002-11-11 00:00:00 Completed [facility] MMR 2002-11-11 00:00:00 Completed [facility] Varicella (varivax)(chicken pox) 2002-11-11 00:00:00 Completed [facility] DTAP 2002-11-11 00:00:00 Completed [facility] HIB 4 Dose Schedule 2002-11-11 00:00:00 Completed [facility] Hep B, Adol or Pedi Dosage 2002-11-11 00:00:00 Completed [facility] MMR 2002-11-11 00:00:00 Completed [facility] Polio (IPV/OPV) 2002-11-11 00:00:00 Completed [facility] Varicella (varivax)(chicken pox) 2002-11-11 00:00:00 Completed [facility] DTAP 2002-11-11 00:00:00 Completed [facility] Hep B, Adol or Pedi Dosage 2002-11-11 00:00:00 Completed [facility] HIB 4 Dose Schedule 2002-11-11 00:00:00 Completed [facility] Polio (IPV/OPV) 2002-11-11 00:00:00 Completed [facility] MMR 2002-11-11 00:00:00 Completed [facility] Varicella (varivax)(chicken pox) 2002-11-11 00:00:00 Completed [facility] DTAP 2002-11-11 00:00:00 Completed [facility] HIB 4 Dose Schedule 2002-11-11 00:00:00 Completed [facility] Hep B, Adol or Pedi Dosage 2002-11-11 00:00:00 Completed [facility] MMR 2002-11-11 00:00:00 Completed [facility] Polio (IPV/OPV) 2002-11-11 00:00:00 Completed [facility] Varicella (varivax)(chicken pox) 2002-11-11 00:00:00 Completed [facility] DTAP 2002-11-11 00:00:00 Completed [facility] Hep B, Adol or Pedi Dosage 2002-11-11 00:00:00 Completed [facility] HIB 4 Dose Schedule 2002-11-11 00:00:00 Completed [facility] Polio (IPV/OPV) 2002-11-11 00:00:00 Completed [facility] MMR 2002-11-11 00:00:00 Completed [facility] Varicella (varivax)(chicken pox) 2002-11-11 00:00:00 Completed [facility] DTAP 2002-11-11 00:00:00 Completed [facility] HIB 4 Dose Schedule 2002-11-11 00:00:00 Completed [facility] Hep B, Adol or Pedi Dosage 2002-11-11 00:00:00 Completed [facility] MMR 2002-11-11 00:00:00 Completed [facility] Polio (IPV/OPV) 2002-11-11 00:00:00 Completed [facility] Varicella (varivax)(chicken pox) 2002-11-11 00:00:00 Completed [facility] DTAP 2002-11-11 00:00:00 Completed [facility] Hep B, Adol or Pedi Dosage 2002-11-11 00:00:00 Completed [facility] HIB 4 Dose Schedule 2002-11-11 00:00:00 Completed [facility] Polio (IPV/OPV) 2002-11-11 00:00:00 Completed [facility] MMR 2002-11-11 00:00:00 Completed [facility] Varicella (varivax)(chicken pox) 2002-11-11 00:00:00 Completed [facility] DTAP 2002-11-11 00:00:00 Completed [facility] DTAP 2002-11-11 00:00:00 Completed [facility] HIB 4 Dose Schedule 2002-11-11 00:00:00 Completed [facility] HIB 4 Dose Schedule 2002-11-11 00:00:00 Completed [facility] Hep B, Adol or Pedi Dosage 2002-11-11 00:00:00 Completed [facility] MMR 2002-11-11 00:00:00 Completed [facility] Polio (IPV/OPV) 2002-11-11 00:00:00 Completed [facility] Varicella (varivax)(chicken pox) 2002-11-11 00:00:00 Completed [facility] DTAP 2002-11-11 00:00:00 Completed [facility] Hep B, Adol or Pedi Dosage 2002-11-11 00:00:00 Completed [facility] HIB 4 Dose Schedule 2002-11-11 00:00:00 Completed [facility] Polio (IPV/OPV) 2002-11-11 00:00:00 [facility] [facility] 2002[facility]11 [facility]:00:00 Completed [facility] Hep B, Adol or Pedi Dosage 2002-11-11 00:00:00 Completed [facility] Varicella (varivax)(chicken pox) 2002-11-11 00:00:00 Completed [facility] MMR 2002-11-11 00:00:00 Completed [facility] DTAP 2002-11-11 00:00:00 Completed [facility] HIB 4 Dose Schedule 2002-11-11 00:00:00 Completed [facility] Hep B, Adol or Pedi Dosage 2002-11-11 00:00:00 Completed [facility] MMR 2002-11-11 00:00:00 Completed [facility] Polio (IPV/OPV) 2002-11-11 00:00:00 Completed [facility] Varicella (varivax)(chicken pox) 2002-11-11 00:00:00 Completed [facility] Polio (IPV/OPV) 2002-11-11 00:00:00 Completed [facility] DTAP 2002-11-11 00:00:00 Completed [facility] Hep B, Adol or Pedi Dosage 2002-11-11 00:00:00 Completed [facility] HIB 4 Dose Schedule 2002-11-11 00:00:00 Completed [facility] Polio (IPV/OPV) 2002-11-11 00:00:00 Completed [facility] MMR 2002-11-11 00:00:00 Completed [facility] Varicella (varivax)(chicken pox) 2002-11-11 00:00:00 Completed [facility] Varicella (varivax)(chicken pox) 2002-11-11 00:00:00 Completed [facility] DTAP 2002-11-11 00:00:00 Completed [facility] DTAP 2002-11-11 00:00:00 Completed [facility] HIB 4 Dose Schedule 2002-11-11 00:00:00 Completed [facility] Hep B, Adol or Pedi Dosage 2002-11-11 00:00:00 Completed [facility] MMR 2002-11-11 00:00:00 Completed [facility] Polio (IPV/OPV) 2002-11-11 00:00:00 Completed [facility] Varicella (varivax)(chicken pox) 2002-11-11 00:00:00 Completed [facility] DTAP 2002-11-11 00:00:00 Completed [facility] Hep B, Adol or Pedi Dosage 2002-11-11 00:00:00 Completed [facility] HIB 4 Dose Schedule 2002-11-11 00:00:00 Completed [facility] Hep B, Adol or Pedi Dosage 2002-11-11 00:00:00 Completed [facility] Polio (IPV/OPV) 2002-11-11 00:00:00 Completed [facility] MMR 2002-11-11 00:00:00 Completed [facility] Varicella (varivax)(chicken pox) 2002-11-11 00:00:00 Completed [facility] HIB 4 Dose Schedule 2002-11-11 00:00:00 Completed [facility] DTAP 2002-11-11 00:00:00 Completed [facility] HIB 4 Dose Schedule 2002-11-11 00:00:00 Completed [facility] Hep B, Adol or Pedi Dosage 2002-11-11 00:00:00 Completed [facility] MMR 2002-11-11 00:00:00 Completed [facility] Polio (IPV/OPV) 2002-11-11 00:00:00 Completed [facility] Varicella (varivax)(chicken pox) 2002-11-11 00:00:00 Completed [facility] Polio (IPV/OPV) 2002-11-11 00:00:00 Completed [facility] DTAP 2002-11-11 00:00:00 Completed [facility] Hep B, Adol or Pedi Dosage 2002-11-11 00:00:00 Completed [facility] HIB 4 Dose Schedule 2002-11-11 00:00:00 Completed [facility] Polio (IPV/OPV) 2002-11-11 00:00:00 Completed [facility] MMR 2002-11-11 00:00:00 Completed [facility] Varicella (varivax)(chicken pox) 2002-11-11 00:00:00 Completed [facility] MMR 2002-11-11 00:00:00 Completed [facility] Varicella (varivax)(chicken pox) 2002-11-11 00:00:00 Completed [facility] DTAP 2002-11-11 00:00:00 Completed [facility] HIB 4 Dose Schedule 2002-11-11 00:00:00 Completed [facility] Hep B, Adol or Pedi Dosage 2002-11-11 00:00:00 Completed [facility] MMR 2002-11-11 00:00:00 Completed [facility] Polio (IPV/OPV) 2002-11-11 00:00:00 Completed [facility] Varicella (varivax)(chicken pox) 2002-11-11 00:00:00 Completed [facility] DTAP 2002-11-11 00:00:00 Completed [facility] Hep B, Adol or Pedi Dosage 2002-11-11 00:00:00 Completed [facility] HIB 4 Dose Schedule 2002-11-11 00:00:00 Completed [facility] Polio (IPV/OPV) 2002-11-11 00:00:00 Completed [facility] MMR 2002-11-11 00:00:00 Completed [facility] Varicella (varivax)(chicken pox) 2002-11-11 00:00:00 Completed [facility] DTAP 2002-11-11 00:00:00 Completed [facility] HIB 4 Dose Schedule 2002-11-11 00:00:00 Completed [facility] Hep B, Adol or Pedi Dosage 2002-11-11 00:00:00 Completed [facility] MMR 2002-11-11 00:00:00 Completed [facility] Polio (IPV/OPV) 2002-11-11 00:00:00 Completed [facility] Varicella (varivax)(chicken pox) 2002-11-11 00:00:00 Completed [facility] DTAP 2002-11-11 00:00:00 Completed [facility] Hep B, Adol or Pedi Dosage 2002-11-11 00:00:00 Completed [facility] HIB 4 Dose Schedule 2002-11-11 00:00:00 Completed [facility] Polio (IPV/OPV) 2002-11-11 00:00:00 Completed [facility] MMR 2002-11-11 00:00:00 Completed [facility] Varicella (varivax)(chicken pox) 2002-11-11 00:00:00 Completed [facility] DTAP 2002-11-11 00:00:00 Completed [facility] HIB 4 Dose Schedule 2002-11-11 00:00:00 Completed [facility] Hep B, Adol or Pedi Dosage 2002-11-11 00:00:00 Completed [facility] MMR 2002-11-11 00:00:00 Completed [facility] Polio (IPV/OPV) 2002-11-11 00:00:00 Completed [facility] Varicella (varivax)(chicken pox) 2002-11-11 00:00:00 Completed [facility] DTAP 2002-11-11 00:00:00 Completed [facility] Hep B, Adol or Pedi Dosage 2002-11-11 00:00:00 Completed [facility] HIB 4 Dose Schedule 2002-11-11 00:00:00 Completed [facility] Polio (IPV/OPV) 2002-11-11 00:00:00 Completed [facility] MMR 2002-11-11 00:00:00 Completed [facility] Varicella (varivax)(chicken pox) 2002-11-11 00:00:00 Completed [facility] DTaP, Unspecified Formulation 2002-11-11 00:00:00 Completed [facility] IPV 2002-11-11 00:00:00 Completed [facility] DTAP 2002-11-11 00:00:00 Completed [facility] HIB 4 Dose Schedule 2002-11-11 00:00:00 Completed [facility] DTaP, Unspecified Formulation 2002-11-11 00:00:00 Completed [facility] IPV 2002-11-11 00:00:00 Completed [facility] Hep B, Adol or Pedi Dosage 2002-11-11 00:00:00 Completed [facility] MMR 2002-11-11 00:00:00 Completed [facility] Polio (IPV/OPV) 2002-11-11 00:00:00 Completed [facility] DTaP, Unspecified Formulation 2002-11-11 00:00:00 Completed [facility] Varicella (varivax)(chicken pox) 2002-11-11 00:00:00 Completed [facility] IPV 2002-11-11 00:00:00 Completed [facility] DTAP 2002-11-11 00:00:00 Completed [facility] Hep B, Adol or Pedi Dosage 2002-11-11 00:00:00 Completed [facility] DTaP, Unspecified Formulation 2002-11-11 00:00:00 Completed [facility] HIB 4 Dose Schedule 2002-11-11 00:00:00 Completed [facility] IPV 2002-11-11 00:00:00 Completed [facility] Polio (IPV/OPV) 2002-11-11 00:00:00 Completed [facility] MMR 2002-11-11 00:00:00 Completed [facility] DTaP, Unspecified Formulation 2002-11-11 00:00:00 Completed [facility] Varicella (varivax)(chicken pox) 2002-11-11 00:00:00 Completed [facility] IPV 2002-11-11 00:00:00 Completed [facility] DTaP, Unspecified Formulation 2002-11-11 00:00:00 Completed [facility] IPV 2002-11-11 00:00:00 Completed [facility] DTaP, Unspecified Formulation 2002-11-11 00:00:00 Completed [facility] IPV 2002-11-11 00:00:00 Completed [facility] DTAP 2002-11-11 00:00:00 Completed [facility] HIB 4 Dose Schedule 2002-11-11 00:00:00 Completed [facility] DTaP, Unspecified Formulation 2002-11-11 00:00:00 Completed [facility] Hep B, Adol or Pedi Dosage 2002-11-11 00:00:00 Completed [facility] IPV 2002-11-11 00:00:00 Completed [facility] MMR 2002-11-11 00:00:00 Completed [facility] Polio (IPV/OPV) 2002-11-11 00:00:00 Completed [facility] DTaP, Unspecified Formulation 2002-11-11 00:00:00 Completed [facility] Varicella (varivax)(chicken pox) 2002-11-11 00:00:00 Completed [facility] IPV 2002-11-11 00:00:00 Completed [facility] DTAP 2002-11-11 00:00:00 Completed [facility] Hep B, Adol or Pedi Dosage 2002-11-11 00:00:00 Completed [facility] DTaP, Unspecified Formulation 2002-11-11 00:00:00 Completed [facility] HIB 4 Dose Schedule 2002-11-11 00:00:00 Completed [facility] IPV 2002-11-11 00:00:00 Completed [facility] Polio (IPV/OPV) 2002-11-11 00:00:00 Completed [facility] MMR 2002-11-11 00:00:00 Completed [facility] Varicella (varivax)(chicken pox) 2002-11-11 00:00:00 Completed [facility] DTaP, Unspecified Formulation 2002-11-11 00:00:00 Completed [facility] IPV 2002-11-11 00:00:00 Completed [facility] DTaP, Unspecified Formulation 2002-11-11 00:00:00 Completed [facility] IPV 2002-11-11 00:00:00 Completed [facility] DTaP, Unspecified Formulation 2002-11-11 00:00:00 Completed [facility] DTAP 2002-11-11 00:00:00 Completed [facility] IPV 2002-11-11 00:00:00 Completed [facility] Poliovirus, Live, Oral, Trivalent 1999-05-14 00:00:00 Completed [facility] DTaP, Unspecified Formulation 1999-05-14 00:00:00 Completed [facility] HIB 4 Dose Schedule 1999-05-14 00:00:00 Completed [facility] Poliovirus, Live, Oral, Trivalent 1999-05-14 00:00:00 Completed [facility] DTaP, Unspecified Formulation 1999-05-14 00:00:00 Completed [facility] HIB 4 Dose Schedule 1999-05-14 00:00:00 Completed [facility] Poliovirus, Live, Oral, Trivalent 1999-05-14 00:00:00 Completed [facility] DTaP, Unspecified Formulation 1999-05-14 00:00:00 Completed [facility] HIB 4 Dose Schedule 1999-05-14 00:00:00 Completed [facility] Poliovirus, Live, Oral, Trivalent 1999-05-14 00:00:00 Completed [facility] DTaP, Unspecified Formulation 1999-05-14 00:00:00 Completed [facility] HIB 4 Dose Schedule 1999-05-14 00:00:00 Completed [facility] Poliovirus, Live, Oral, Trivalent 1999-05-14 00:00:00 Completed [facility] DTaP, Unspecified Formulation 1999-05-14 00:00:00 Completed [facility] HIB 4 Dose Schedule 1999-05-14 00:00:00 Completed [facility] Poliovirus, Live, Oral, Trivalent 1999-05-14 00:00:00 Completed [facility] DTaP, Unspecified Formulation 1999-05-14 00:00:00 Completed [facility] HIB 4 Dose Schedule 1999-05-14 00:00:00 Completed [facility] Poliovirus, Live, Oral, Trivalent 1999-05-14 00:00:00 Completed [facility] DTaP, Unspecified Formulation 1999-05-14 00:00:00 Completed [facility] HIB 4 Dose Schedule 1999-05-14 00:00:00 Completed [facility] Poliovirus, Live, Oral, Trivalent 1999-05-14 00:00:00 Completed [facility] DTaP, Unspecified Formulation 1999-05-14 00:00:00 Completed [facility] HIB 4 Dose Schedule 1999-05-14 00:00:00 Completed [facility] Poliovirus, Live, Oral, Trivalent 1999-05-14 00:00:00 Completed [facility] DTaP, Unspecified Formulation 1999-05-14 00:00:00 Completed [facility] HIB 4 Dose Schedule 1999-05-14 00:00:00 Completed [facility] Poliovirus, Live, Oral, Trivalent 1999-05-14 00:00:00 Completed [facility] DTaP, Unspecified Formulation 1999-05-14 00:00:00 Completed [facility] HIB 4 Dose Schedule 1999-05-14 00:00:00 Completed [facility] Poliovirus, Live, Oral, Trivalent 1999-05-14 00:00:00 Completed [facility] DTaP, Unspecified Formulation 1999-05-14 00:00:00 Completed [facility] HIB 4 Dose Schedule 1999-05-14 00:00:00 Completed [facility] Poliovirus, Live, Oral, Trivalent 1999-05-14 00:00:00 Completed [facility] DTaP, Unspecified Formulation 1999-05-14 00:00:00 Completed [facility] HIB 4 Dose Schedule 1999-05-14 00:00:00 Completed [facility] Poliovirus, Live, Oral, Trivalent 1999-05-14 00:00:00 Completed [facility] DTaP, Unspecified Formulation 1999-05-14 00:00:00 Completed [facility] HIB 4 Dose Schedule 1999-05-14 00:00:00 Completed [facility] Poliovirus, Live, Oral, Trivalent 1999-05-14 00:00:00 Completed [facility] DTaP, Unspecified Formulation 1999-05-14 00:00:00 Completed [facility] HIB 4 Dose Schedule 1999-05-14 00:00:00 Completed [facility] Poliovirus, Live, Oral, Trivalent 1999-05-14 00:00:00 Completed [facility] DTaP, Unspecified Formulation 1999-05-14 00:00:00 Completed [facility] HIB 4 Dose Schedule 1999-05-14 00:00:00 Completed [facility] Poliovirus, Live, Oral, Trivalent 1999-05-14 00:00:00 Completed [facility] DTaP, Unspecified Formulation 1999-05-14 00:00:00 Completed [facility] HIB 4 Dose Schedule 1999-05-14 00:00:00 Completed [facility] Poliovirus, Live, Oral, Trivalent 1999-05-14 00:00:00 Completed [facility] DTaP, Unspecified Formulation 1999-05-14 00:00:00 Completed [facility] HIB 4 Dose Schedule 1999-05-14 00:00:00 Completed [facility] Poliovirus, Live, Oral, Trivalent 1999-05-14 00:00:00 Completed [facility] DTaP, Unspecified Formulation 1999-05-14 00:00:00 Completed [facility] HIB 4 Dose Schedule 1999-05-14 00:00:00 Completed [facility] Poliovirus, Live, Oral, Trivalent 1999-05-14 00:00:00 Completed [facility] DTaP, Unspecified Formulation 1999-05-14 00:00:00 Completed [facility] HIB 4 Dose Schedule 1999-05-14 00:00:00 Completed [facility] Poliovirus, Live, Oral, Trivalent 1999-05-14 00:00:00 Completed [facility] DTaP, Unspecified Formulation 1999-05-14 00:00:00 Completed [facility] HIB 4 Dose Schedule 1999-05-14 00:00:00 Completed [facility] Poliovirus, Live, Oral, Trivalent 1999-05-14 00:00:00 Completed [facility] DTaP, Unspecified Formulation 1999-05-14 00:00:00 Completed [facility] HIB 4 Dose Schedule 1999-05-14 00:00:00 Completed [facility] Poliovirus, Live, Oral, Trivalent 1999-01-26 00:00:00 Completed [facility] DTaP, Unspecified Formulation 1999-01-26 00:00:00 Completed [facility] Hep B, Adol or Pedi Dosage 1999-01-26 00:00:00 Completed [facility] HIB 4 Dose Schedule 1999-01-26 00:00:00 Completed [facility] Poliovirus, Live, Oral, Trivalent 1999-01-26 00:00:00 Completed [facility] DTaP, Unspecified Formulation 1999-01-26 00:00:00 Completed [facility] Hep B, Adol or Pedi Dosage 1999-01-26 00:00:00 Completed [facility] HIB 4 Dose Schedule 1999-01-26 00:00:00 Completed [facility] Poliovirus, Live, Oral, Trivalent 1999-01-26 00:00:00 Completed [facility] DTaP, Unspecified Formulation 1999-01-26 00:00:00 Completed [facility] Hep B, Adol or Pedi Dosage 1999-01-26 00:00:00 Completed [facility] HIB 4 Dose Schedule 1999-01-26 00:00:00 Completed [facility] Poliovirus, Live, Oral, Trivalent 1999-01-26 00:00:00 Completed [facility] DTaP, Unspecified Formulation 1999-01-26 00:00:00 Completed [facility] Hep B, Adol or Pedi Dosage 1999-01-26 00:00:00 Completed [facility] HIB 4 Dose Schedule 1999-01-26 00:00:00 Completed [facility] Poliovirus, Live, Oral, Trivalent 1999-01-26 00:00:00 Completed [facility] DTaP, Unspecified Formulation 1999-01-26 00:00:00 Completed [facility] Hep B, Adol or Pedi Dosage 1999-01-26 00:00:00 Completed [facility] HIB 4 Dose Schedule 1999-01-26 00:00:00 Completed [facility] Poliovirus, Live, Oral, Trivalent 1999-01-26 00:00:00 Completed [facility] DTaP, Unspecified Formulation 1999-01-26 00:00:00 Completed [facility] Hep B, Adol or Pedi Dosage 1999-01-26 00:00:00 Completed [facility] HIB 4 Dose Schedule 1999-01-26 00:00:00 Completed [facility] Poliovirus, Live, Oral, Trivalent 1999-01-26 00:00:00 Completed [facility] DTaP, Unspecified Formulation 1999-01-26 00:00:00 Completed [facility] Hep B, Adol or Pedi Dosage 1999-01-26 00:00:00 Completed [facility] HIB 4 Dose Schedule 1999-01-26 00:00:00 Completed [facility] Poliovirus, Live, Oral, Trivalent 1999-01-26 00:00:00 Completed [facility] DTaP, Unspecified Formulation 1999-01-26 00:00:00 Completed [facility] Hep B, Adol or Pedi Dosage 1999-01-26 00:00:00 Completed [facility] HIB 4 Dose Schedule 1999-01-26 00:00:00 Completed [facility] Poliovirus, Live, Oral, Trivalent 1999-01-26 00:00:00 Completed [facility] DTaP, Unspecified Formulation 1999-01-26 00:00:00 Completed [facility] Hep B, Adol or Pedi Dosage 1999-01-26 00:00:00 Completed [facility] HIB 4 Dose Schedule 1999-01-26 00:00:00 Completed [facility] Poliovirus, Live, Oral, Trivalent 1999-01-26 00:00:00 Completed [facility] DTaP, Unspecified Formulation 1999-01-26 00:00:00 Completed [facility] Hep B, Adol or Pedi Dosage 1999-01-26 00:00:00 Completed [facility] HIB 4 Dose Schedule 1999-01-26 00:00:00 Completed [facility] Poliovirus, Live, Oral, Trivalent 1999-01-26 00:00:00 Completed [facility] DTaP, Unspecified Formulation 1999-01-26 00:00:00 Completed [facility] Hep B, Adol or Pedi Dosage 1999-01-26 00:00:00 Completed [facility] HIB 4 Dose Schedule 1999-01-26 00:00:00 Completed [facility] Poliovirus, Live, Oral, Trivalent 1999-01-26 00:00:00 Completed [facility] DTaP, Unspecified Formulation 1999-01-26 00:00:00 Completed [facility] Hep B, Adol or Pedi Dosage 1999-01-26 00:00:00 Completed [facility] HIB 4 Dose Schedule 1999-01-26 00:00:00 Completed [facility] Poliovirus, Live, Oral, Trivalent 1999-01-26 00:00:00 Completed [facility] DTaP, Unspecified Formulation 1999-01-26 00:00:00 Completed [facility] Hep B, Adol or Pedi Dosage 1999-01-26 00:00:00 Completed [facility] HIB 4 Dose Schedule 1999-01-26 00:00:00 Completed [facility] Poliovirus, Live, Oral, Trivalent 1999-01-26 00:00:00 Completed [facility] DTaP, Unspecified Formulation 1999-01-26 00:00:00 Completed [facility] Hep B, Adol or Pedi Dosage 1999-01-26 00:00:00 Completed [facility] HIB 4 Dose Schedule 1999-01-26 00:00:00 Completed [facility] Poliovirus, Live, Oral, Trivalent 1999-01-26 00:00:00 Completed [facility] DTaP, Unspecified Formulation 1999-01-26 00:00:00 Completed [facility] Hep B, Adol or Pedi Dosage 1999-01-26 00:00:00 Completed [facility] HIB 4 Dose Schedule 1999-01-26 00:00:00 Completed [facility] Poliovirus, Live, Oral, Trivalent 1999-01-26 00:00:00 Completed [facility] DTaP, Unspecified Formulation 1999-01-26 00:00:00 Completed [facility] Hep B, Adol or Pedi Dosage 1999-01-26 00:00:00 Completed [facility] HIB 4 Dose Schedule 1999-01-26 00:00:00 Completed [facility] Poliovirus, Live, Oral, Trivalent 1999-01-26 00:00:00 Completed [facility] DTaP, Unspecified Formulation 1999-01-26 00:00:00 Completed [facility] Hep B, Adol or Pedi Dosage 1999-01-26 00:00:00 Completed [facility] HIB 4 Dose Schedule 1999-01-26 00:00:00 Completed [facility] Poliovirus, Live, Oral, Trivalent 1999-01-26 00:00:00 Completed [facility] DTaP, Unspecified Formulation 1999-01-26 00:00:00 Completed [facility] Hep B, Adol or Pedi Dosage 1999-01-26 00:00:00 Completed [facility] HIB 4 Dose Schedule 1999-01-26 00:00:00 Completed [facility] Poliovirus, Live, Oral, Trivalent 1999-01-26 00:00:00 Completed [facility] DTaP, Unspecified Formulation 1999-01-26 00:00:00 Completed [facility] Hep B, Adol or Pedi Dosage 1999-01-26 00:00:00 Completed [facility] HIB 4 Dose Schedule 1999-01-26 00:00:00 Completed [facility] Poliovirus, Live, Oral, Trivalent 1999-01-26 00:00:00 Completed [facility] DTaP, Unspecified Formulation 1999-01-26 00:00:00 Completed [facility] Hep B, Adol or Pedi Dosage 1999-01-26 00:00:00 Completed [facility] HIB 4 Dose Schedule 1999-01-26 00:00:00 Completed [facility] Poliovirus, Live, Oral, Trivalent 1999-01-26 00:00:00 Completed [facility] DTaP, Unspecified Formulation 1999-01-26 00:00:00 Completed [facility] Hep B, Adol or Pedi Dosage 1999-01-26 00:00:00 Completed [facility] HIB 4 Dose Schedule 1999-01-26 00:00:00 Completed [facility] Hep B, Adol or Pedi Dosage 1998 00:00:00 Completed [facility] Hep B, Adol or Pedi Dosage 1998 00:00:00 Completed [facility] Hep B, Adol or Pedi Dosage 1998 00:00:00 Completed [facility] Hep B, Adol or Pedi Dosage 1998 00:00:00 Completed [facility] Hep B, Adol or Pedi Dosage 1998 00:00:00 Completed [facility] Hep B, Adol or Pedi Dosage 1998 00:00:00 Completed [facility] Hep B, Adol or Pedi Dosage 1998 00:00:00 Completed [facility] Hep B, Adol or Pedi Dosage 1998 00:00:00 Completed [facility] Hep B, Adol or Pedi Dosage 1998 00:00:00 Completed [facility] Hep B, Adol or Pedi Dosage 1998 00:00:00 Completed [facility] Hep B, Adol or Pedi Dosage 1998 00:00:00 Completed [facility] Hep B, Adol or Pedi Dosage 1998 00:00:00 Completed [facility] Hep B, Adol or Pedi Dosage 1998 00:00:00 Completed [facility] Hep B, Adol or Pedi Dosage 1998 00:00:00 Completed [facility] Hep B, Adol or Pedi Dosage 1998 00:00:00 Completed [facility] Hep B, Adol or Pedi Dosage 1998 00:00:00 Completed [facility] Hep B, Adol or Pedi Dosage 1998 00:00:00 Completed [facility] Hep B, Adol or Pedi Dosage 1998 00:00:00 Completed [facility] Hep B, Adol or Pedi Dosage 1998 00:00:00 Completed [facility] Hep B, Adol or Pedi Dosage 1998 00:00:00 Completed [facility] Hep B, Adol or Pedi Dosage 1998 00:00:00 Completed [facility] HPV Unknown Completed [facility] Meningococcal Polysaccharide (groups A, C, Y and W-135) conjugate vaccine (MCV4P) Unknown Completed [facility] TDAP (ADACEL) VACCINE Unknown Completed [facility] Influenza Virus Vaccine Quad .5 mL IM 6+ MO (FLUZONE/FLULAVAL/FL UARIX) Unknown Completed [facility] TDAP (ADACEL) VACCINE Unknown Completed [facility] TDAP (ADACEL) VACCINE Unknown Completed [facility] Influenza Virus Vaccine Quad .5 mL IM 6+ MO (FLUZONE/FLULAVAL/FL UARIX) Unknown Completed [facility] HPV Unknown Completed [facility] Meningococcal Polysaccharide (groups A, C, Y and W-135) conjugate vaccine (MCV4P) Unknown Completed [facility] Varicella (varivax)(chicken pox) Unknown Completed [facility] SARS-COV-2 COVID-19 VACCINE - (MODERNA) Unknown Completed [facility] SARS-COV-2 COVID-19 VACCINE - (MODERNA) Unknown Completed [facility] DTaP, Unspecified Formulation Unknown Completed [facility] DTaP, Unspecified Formulation Unknown Completed [facility] DTaP, Unspecified Formulation Unknown Completed [facility] DTaP, Unspecified Formulation Unknown Completed [facility] HEPATITIS A Unknown Completed [facility] Hep B, Adol or Pedi Dosage Unknown Completed [facility] Hep B, Adol or Pedi Dosage Unknown Completed [facility] HIB 4 Dose Schedule Unknown Completed [facility] HIB 4 Dose Schedule Unknown Completed [facility] MMR Unknown Completed [facility] IPV Unknown Completed [facility] IPV Unknown Completed [facility] Poliovirus, Live, Oral, Trivalent Unknown Completed [facility] Poliovirus, Live, Oral, Trivalent Unknown Completed [facility] Tetanus/Diptheria Unknown Completed [facility] HPV Unknown Completed [facility] Meningococcal Polysaccharide (groups A, C, Y and W-135) conjugate vaccine (MCV4P) Unknown Completed [facility] TDAP (ADACEL) VACCINE Unknown Completed [facility] Influenza Virus Vaccine Quad .5 mL IM 6+ MO (FLUZONE/FLULAVAL/FL UARIX) Unknown Completed [facility] TDAP (ADACEL) VACCINE Unknown Completed [facility] TDAP (ADACEL) VACCINE Unknown Completed [facility] Influenza Virus Vaccine Quad .5 mL IM 6+ MO (FLUZONE/FLULAVAL/FL UARIX) Unknown Completed [facility] HPV Unknown Completed [facility] Meningococcal Polysaccharide (groups A, C, Y and W-135) conjugate vaccine (MCV4P) Unknown Completed [facility] Varicella (varivax)(chicken pox) Unknown Completed [facility] SARS-COV-2 COVID-19 VACCINE - (MODERNA) Unknown Completed [facility] SARS-COV-2 COVID-19 VACCINE - (MODERNA) Unknown Completed [facility] DTaP, Unspecified Formulation Unknown Completed [facility] DTaP, Unspecified Formulation Unknown Completed [facility] DTaP, Unspecified Formulation Unknown Completed [facility] DTaP, Unspecified Formulation Unknown Completed [facility] HEPATITIS A Unknown Completed [facility] Hep B, Adol or Pedi Dosage Unknown Completed [facility] Hep B, Adol or Pedi Dosage Unknown Completed [facility] HIB 4 Dose Schedule Unknown Completed [facility] HIB 4 Dose Schedule Unknown Completed [facility] MMR Unknown Completed [facility] IPV Unknown Completed [facility] IPV Unknown Completed [facility] Poliovirus, Live, Oral, Trivalent Unknown Completed [facility] Poliovirus, Live, Oral, Trivalent Unknown Completed [facility] Tetanus/Diptheria Unknown Completed [facility] HPV Unknown Completed [facility] Meningococcal Polysaccharide (groups A, C, Y and W-135) conjugate vaccine (MCV4P) Unknown Completed [facility] TDAP (ADACEL) VACCINE Unknown Completed [facility] Influenza Virus Vaccine Quad .5 mL IM 6+ MO (FLUZONE/FLULAVAL/FL UARIX) Unknown Completed [facility] TDAP (ADACEL) VACCINE Unknown Completed [facility] TDAP (ADACEL) VACCINE Unknown Completed [facility] Influenza Virus Vaccine Quad .5 mL IM 6+ MO (FLUZONE/FLULAVAL/FL UARIX) Unknown Completed [facility] HPV Unknown Completed [facility] Meningococcal Polysaccharide (groups A, C, Y and W-135) conjugate vaccine (MCV4P) Unknown Completed [facility] Varicella (varivax)(chicken pox) Unknown Completed [facility] SARS-COV-2 COVID-19 VACCINE - (MODERNA) Unknown Completed [facility] SARS-COV-2 COVID-19 VACCINE - (MODERNA) Unknown Completed [facility] DTaP, Unspecified Formulation Unknown Completed [facility] DTaP, Unspecified Formulation Unknown Completed [facility] DTaP, Unspecified Formulation Unknown Completed [facility] DTaP, Unspecified Formulation Unknown Completed [facility] HEPATITIS A Unknown Completed [facility] Hep B, Adol or Pedi Dosage Unknown Completed [facility] Hep B, Adol or Pedi Dosage Unknown Completed [facility] HIB 4 Dose Schedule Unknown Completed [facility] HIB 4 Dose Schedule Unknown Completed [facility] MMR Unknown Completed [facility] IPV Unknown Completed [facility] IPV Unknown Completed [facility] Poliovirus, Live, Oral, Trivalent Unknown Completed [facility] Poliovirus, Live, Oral, Trivalent Unknown Completed [facility] Tetanus/Diptheria Unknown Completed [facility] HPV Unknown Completed [facility] Meningococcal Polysaccharide (groups A, C, Y and W-135) conjugate vaccine (MCV4P) Unknown Completed [facility] TDAP (ADACEL) VACCINE Unknown Completed [facility] Influenza Virus Vaccine Quad .5 mL IM 6+ MO (FLUZONE/FLULAVAL/FL UARIX) Unknown Completed [facility] TDAP (ADACEL) VACCINE Unknown Completed [facility] TDAP (ADACEL) VACCINE Unknown Completed [facility] Influenza Virus Vaccine Quad .5 mL IM 6+ MO (FLUZONE/FLULAVAL/FL UARIX) Unknown Completed [facility] HPV Unknown Completed [facility] Meningococcal Polysaccharide (groups A, C, Y and W-135) conjugate vaccine (MCV4P) Unknown Completed [facility] Varicella (varivax)(chicken pox) Unknown Completed [facility] SARS-COV-2 COVID-19 VACCINE - (MODERNA) Unknown Completed [facility] SARS-COV-2 COVID-19 VACCINE - (MODERNA) Unknown Completed [facility] DTaP, Unspecified Formulation Unknown Completed [facility] DTaP, Unspecified Formulation Unknown Completed [facility] DTaP, Unspecified Formulation Unknown Completed [facility] DTaP, Unspecified Formulation Unknown Completed [facility] HEPATITIS A Unknown Completed [facility] Hep B, Adol or Pedi Dosage Unknown Completed [facility] Hep B, Adol or Pedi Dosage Unknown Completed [facility] HIB 4 Dose Schedule Unknown Completed [facility] HIB 4 Dose Schedule Unknown Completed [facility] MMR Unknown Completed [facility] IPV Unknown Completed [facility] IPV Unknown Completed [facility] Poliovirus, Live, Oral, Trivalent Unknown Completed [facility] Poliovirus, Live, Oral, Trivalent Unknown Completed [facility] Tetanus/Diptheria Unknown Completed [facility] HPV Unknown Completed [facility] Meningococcal Polysaccharide (groups A, C, Y and W-135) conjugate vaccine (MCV4P) Unknown Completed [facility] TDAP (ADACEL) VACCINE Unknown Completed [facility] Influenza Virus Vaccine Quad .5 mL IM 6+ MO (FLUZONE/FLULAVAL/FL UARIX) Unknown Completed [facility] TDAP (ADACEL) VACCINE Unknown Completed [facility] TDAP (ADACEL) VACCINE Unknown Completed [facility] Influenza Virus Vaccine Quad .5 mL IM 6+ MO (FLUZONE/FLULAVAL/FL UARIX) Unknown Completed [facility] HPV Unknown Completed [facility] Meningococcal Polysaccharide (groups A, C, Y and W-135) conjugate vaccine (MCV4P) Unknown Completed [facility] Varicella (varivax)(chicken pox) Unknown Completed [facility] SARS-COV-2 COVID-19 VACCINE - (MODERNA) Unknown Completed [facility] DTaP, Unspecified Formulation Unknown Completed [facility] DTaP, Unspecified Formulation Unknown Completed [facility] DTaP, Unspecified Formulation Unknown Completed [facility] DTaP, Unspecified Formulation Unknown Completed [facility] HEPATITIS A Unknown Completed [facility] Hep B, Adol or Pedi Dosage Unknown Completed [facility] Hep B, Adol or Pedi Dosage Unknown Completed [facility] HIB 4 Dose Schedule Unknown Completed [facility] HIB 4 Dose Schedule Unknown Completed [facility] MMR Unknown Completed [facility] IPV Unknown Completed [facility] IPV Unknown Completed [facility] Poliovirus, Live, Oral, Trivalent Unknown Completed [facility] Poliovirus, Live, Oral, Trivalent Unknown Completed [facility] Tetanus/Diptheria Unknown Completed [facility] HPV Unknown Completed [facility] Meningococcal Polysaccharide (groups A, C, Y and W-135) conjugate vaccine (MCV4P) Unknown Completed [facility] TDAP (ADACEL) VACCINE Unknown Completed [facility] Influenza Virus Vaccine Quad .5 mL IM 6+ MO (FLUZONE/FLULAVAL/FL UARIX) Unknown Completed [facility] TDAP (ADACEL) VACCINE Unknown Completed [facility] TDAP (ADACEL) VACCINE Unknown Completed [facility] Influenza Virus Vaccine Quad .5 mL IM 6+ MO (FLUZONE/FLULAVAL/FL UARIX) Unknown Completed [facility] HPV Unknown Completed [facility] Meningococcal Polysaccharide (groups A, C, Y and W-135) conjugate vaccine (MCV4P) Unknown Completed [facility] Varicella (varivax)(chicken pox) Unknown Completed [facility] SARS-COV-2 COVID-19 VACCINE - (MODERNA) Unknown Completed [facility] SARS-COV-2 COVID-19 VACCINE - (MODERNA) Unknown Completed [facility] DTaP, Unspecified Formulation Unknown Completed [facility] DTaP, Unspecified Formulation Unknown Completed [facility] DTaP, Unspecified Formulation Unknown Completed [facility] DTaP, Unspecified Formulation Unknown Completed [facility] HEPATITIS A Unknown Completed [facility] Hep B, Adol or Pedi Dosage Unknown Completed [facility] Hep B, Adol or Pedi Dosage Unknown Completed [facility] HIB 4 Dose Schedule Unknown Completed [facility] HIB 4 Dose Schedule Unknown Completed [facility] MMR Unknown Completed [facility] IPV Unknown Completed [facility] IPV Unknown Completed [facility] Poliovirus, Live, Oral, Trivalent Unknown Completed [facility] Poliovirus, Live, Oral, Trivalent Unknown Completed [facility] Tetanus/Diptheria Unknown [facility] Meningococcal Polysaccharide (groups A, C, Y and W-135) conjugate vaccine (MCV4P) Unknown Completed [facility] TDAP (ADACEL) VACCINE Unknown Completed [facility] Influenza Virus Vaccine Quad .5 mL IM 6+ MO (FLUZONE/FLULAVAL/FL UARIX) Unknown Completed [facility] TDAP (ADACEL) VACCINE Unknown Completed [facility] TDAP (ADACEL) VACCINE Unknown Completed [facility] Influenza Virus Vaccine Quad .5 mL IM 6+ MO (FLUZONE/FLULAVAL/FL UARIX) Unknown Completed [facility] HPV Unknown Completed [facility] Meningococcal Polysaccharide (groups A, C, Y and W-135) conjugate vaccine (MCV4P) Unknown Completed [facility] Varicella (varivax)(chicken pox) Unknown Completed [facility] SARS-COV-2 COVID-19 VACCINE - (MODERNA) Unknown Completed [facility] SARS-COV-2 COVID-19 VACCINE - (MODERNA) Unknown Completed [facility] DTaP, Unspecified Formulation Unknown Completed [facility] DTaP, Unspecified Formulation Unknown Completed [facility] DTaP, Unspecified Formulation Unknown Completed [facility] DTaP, Unspecified Formulation Unknown Completed [facility] HEPATITIS A Unknown Completed [facility] Hep B, Adol or Pedi Dosage Unknown Completed [facility] Hep B, Adol or Pedi Dosage Unknown Completed [facility] HIB 4 Dose Schedule Unknown Completed [facility] HIB 4 Dose Schedule Unknown Completed [facility] MMR Unknown Completed [facility] IPV Unknown Completed [facility] IPV Unknown Completed [facility] Poliovirus, Live, Oral, Trivalent Unknown Completed [facility] Poliovirus, Live, Oral, Trivalent Unknown Completed [facility] Tetanus/Diptheria [facility] Meningococcal Polysaccharide (groups A, C, Y and W-135) conjugate vaccine (MCV4P) Unknown Completed [facility] TDAP (ADACEL) VACCINE Unknown Completed [facility] Influenza Virus Vaccine Quad .5 mL IM 6+ MO (FLUZONE/FLULAVAL/FL UARIX) Unknown Completed [facility] TDAP (ADACEL) VACCINE Unknown Completed [facility] TDAP (ADACEL) VACCINE Unknown Completed [facility] Influenza Virus Vaccine Quad .5 mL IM 6+ MO (FLUZONE/FLULAVAL/FL UARIX) Unknown Completed [facility] HPV Unknown Completed [facility] Meningococcal Polysaccharide (groups A, C, Y and W-135) conjugate vaccine (MCV4P) Unknown Completed [facility] Varicella (varivax)(chicken pox) Unknown Completed [facility] SARS-COV-2 COVID-19 VACCINE - (MODERNA) Unknown Completed [facility] SARS-COV-2 COVID-19 VACCINE - (MODERNA) Unknown Completed [facility] DTaP, Unspecified Formulation Unknown Completed [facility] DTaP, Unspecified Formulation Unknown Completed [facility] DTaP, Unspecified Formulation Unknown Completed [facility] DTaP, Unspecified Formulation Unknown Completed [facility] HEPATITIS A Unknown Completed [facility] Hep B, Adol or Pedi Dosage Unknown Completed [facility] Hep B, Adol or Pedi Dosage Unknown Completed [facility] HIB 4 Dose Schedule Unknown Completed [facility] HIB 4 Dose Schedule Unknown Completed [facility] MMR Unknown Completed [facility] IPV Unknown Completed [facility] IPV Unknown Completed [facility] Poliovirus, Live, Oral, Trivalent Unknown Completed [facility] Poliovirus, Live, Oral, Trivalent Unknown Completed [facility] Tetanus/Diptheria Unknown [facility] Meningococcal Polysaccharide (groups A, C, Y and W-135) conjugate vaccine (MCV4P) Unknown Completed [facility] TDAP (ADACEL) VACCINE Unknown Completed [facility] Influenza Virus Vaccine Quad .5 mL IM 6+ MO (FLUZONE/FLULAVAL/FL UARIX) Unknown Completed [facility] TDAP (ADACEL) VACCINE Unknown Completed [facility] TDAP (ADACEL) VACCINE Unknown Completed [facility] Influenza Virus Vaccine Quad .5 mL IM 6+ MO (FLUZONE/FLULAVAL/FL UARIX) Unknown Completed [facility] HPV Unknown Completed [facility] Meningococcal Polysaccharide (groups A, C, Y and W-135) conjugate vaccine (MCV4P) Unknown Completed [facility] Varicella (varivax)(chicken pox) Unknown Completed [facility] SARS-COV-2 COVID-19 VACCINE - (MODERNA) Unknown Completed [facility] SARS-COV-2 COVID-19 VACCINE - (MODERNA) Unknown Completed [facility] DTaP, Unspecified Formulation Unknown Completed [facility] DTaP, Unspecified Formulation Unknown Completed [facility] DTaP, Unspecified Formulation Unknown Completed [facility] DTaP, Unspecified Formulation Unknown Completed [facility] HEPATITIS A Unknown Completed [facility] Hep B, Adol or Pedi Dosage Unknown Completed [facility] Hep B, Adol or Pedi Dosage Unknown Completed [facility] HIB 4 Dose Schedule Unknown Completed [facility] HIB 4 Dose Schedule Unknown Completed [facility] MMR Unknown Completed [facility] IPV Unknown Completed [facility] IPV Unknown Completed [facility] Poliovirus, Live, Oral, Trivalent Unknown Completed [facility] Poliovirus, Live, Oral, Trivalent Unknown Completed [facility] Tetanus/Diptheria Unknown [facility] Influenza Virus Vaccine Quad IM, Preserv and ABX Free 6 MO-64 YRS (FLUCELVAX) Unknown Completed [facility] HPV Unknown Completed [facility] Meningococcal Polysaccharide (groups A, C, Y and W-135) conjugate vaccine (MCV4P) Unknown Completed [facility] TDAP (ADACEL) VACCINE Unknown Completed [facility] Influenza Virus Vaccine Quad .5 mL IM 6+ MO (FLUZONE/FLULAVAL/FL UARIX) Unknown Completed [facility] TDAP (ADACEL) VACCINE Unknown Completed [facility] TDAP (ADACEL) VACCINE Unknown Completed [facility] Influenza Virus Vaccine Quad .5 mL IM 6+ MO (FLUZONE/FLULAVAL/FL UARIX) Unknown Completed [facility] HPV Unknown Completed [facility] Meningococcal Polysaccharide (groups A, C, Y and W-135) conjugate vaccine (MCV4P) Unknown Completed [facility] Varicella (varivax)(chicken pox) Unknown Completed [facility] SARS-COV-2 COVID-19 VACCINE - (MODERNA) Unknown Completed [facility] SARS-COV-2 COVID-19 VACCINE - (MODERNA) Unknown Completed [facility] DTaP, Unspecified Formulation Unknown Completed [facility] DTaP, Unspecified Formulation Unknown Completed [facility] DTaP, Unspecified Formulation Unknown Completed [facility] DTaP, Unspecified Formulation Unknown Completed [facility] HEPATITIS A Unknown Completed [facility] Hep B, Adol or Pedi Dosage Unknown Completed [facility] Hep B, Adol or Pedi Dosage Unknown Completed [facility] HIB 4 Dose Schedule Unknown Completed [facility] HIB 4 Dose Schedule Unknown Completed [facility] MMR Unknown Completed [facility] IPV Unknown Completed [facility] IPV Unknown Completed [facility] Poliovirus, Live, Oral, Trivalent Unknown Completed [facility] Poliovirus, Live, Oral, Trivalent Unknown Completed [facility] Tetanus/Diptheria Unknown Completed [facility] TDAP Unknown Completed [facility] Influenza Virus Vaccine Quad IM, Preserv and ABX Free 6 MO-64 YRS (FLUCELVAX) Unknown Completed [facility] HPV Unknown Completed [facility] Meningococcal Polysaccharide (groups A, C, Y and W-135) conjugate vaccine (MCV4P) Unknown Completed [facility] TDAP (ADACEL) VACCINE Unknown Completed [facility] Influenza Virus Vaccine Quad .5 mL IM 6+ MO (FLUZONE/FLULAVAL/FL UARIX) Unknown Completed [facility] TDAP (ADACEL) VACCINE Unknown Completed [facility] TDAP (ADACEL) VACCINE Unknown Completed [facility] Influenza Virus Vaccine Quad .5 mL IM 6+ MO (FLUZONE/FLULAVAL/FL UARIX) Unknown Completed [facility] HPV Unknown Completed [facility] Meningococcal Polysaccharide (groups A, C, Y and W-135) conjugate vaccine (MCV4P) Unknown Completed [facility] Varicella (varivax)(chicken pox) Unknown Completed [facility] SARS-COV-2 COVID-19 VACCINE - (MODERNA) Unknown Completed [facility] SARS-COV-2 COVID-19 VACCINE - (MODERNA) Unknown Completed [facility] DTaP, Unspecified Formulation Unknown Completed [facility] DTaP, Unspecified Formulation Unknown Completed [facility] DTaP, Unspecified Formulation Unknown Completed [facility] DTaP, Unspecified Formulation Unknown Completed [facility] HEPATITIS A Unknown Completed [facility] Hep B, Adol or Pedi Dosage Unknown Completed [facility] Hep B, Adol or Pedi Dosage Unknown Completed [facility] HIB 4 Dose Schedule Unknown Completed [facility] HIB 4 Dose Schedule Unknown Completed [facility] MMR Unknown Completed [facility] IPV Unknown Completed [facility] IPV Unknown Completed [facility] Poliovirus, Live, Oral, Trivalent Unknown Completed [facility] Poliovirus, Live, Oral, Trivalent Unknown Completed [facility] Tetanus/Diptheria Unknown Completed [facility] TDAP Unknown Completed [facility] Influenza Virus Vaccine Quad IM, Preserv and ABX Free 6 MO-64 YRS (FLUCELVAX) Unknown Completed [facility] HPV Unknown Completed [facility] Meningococcal Polysaccharide (groups A, C, Y and W-135) conjugate vaccine (MCV4P) Unknown Completed [facility] TDAP (ADACEL) VACCINE Unknown Completed [facility] Influenza Virus Vaccine Quad .5 mL IM 6+ MO (FLUZONE/FLULAVAL/FL UARIX) Unknown Completed [facility] TDAP (ADACEL) VACCINE Unknown Completed [facility] TDAP (ADACEL) VACCINE Unknown Completed [facility] Influenza Virus Vaccine Quad .5 mL IM 6+ MO (FLUZONE/FLULAVAL/FL UARIX) Unknown Completed [facility] HPV Unknown Completed [facility] Meningococcal Polysaccharide (groups A, C, Y and W-135) conjugate vaccine (MCV4P) Unknown Completed [facility] Varicella (varivax)(chicken pox) Unknown Completed [facility] SARS-COV-2 COVID-19 VACCINE - (MODERNA) Unknown Completed [facility] SARS-COV-2 COVID-19 VACCINE - (MODERNA) Unknown Completed [facility] DTaP, Unspecified Formulation Unknown Completed [facility] DTaP, Unspecified Formulation Unknown Completed [facility] DTaP, Unspecified Formulation Unknown Completed [facility] DTaP, Unspecified Formulation Unknown Completed [facility] HEPATITIS A Unknown Completed [facility] Hep B, Adol or Pedi Dosage Unknown Completed [facility] Hep B, Adol or Pedi Dosage Unknown Completed [facility] HIB 4 Dose Schedule Unknown Completed [facility] HIB 4 Dose Schedule Unknown Completed [facility] MMR Unknown Completed [facility] IPV Unknown Completed [facility] IPV Unknown Completed [facility] Poliovirus, Live, Oral, Trivalent Unknown Completed [facility] Poliovirus, Live, Oral, Trivalent Unknown Completed [facility] Tetanus/Diptheria Unknown Completed [facility] TDAP Unknown Completed [facility] Influenza Virus Vaccine Quad IM, Preserv and ABX Free 6 MO-64 YRS (FLUCELVAX) Unknown Completed [facility] HPV Unknown Completed [facility] Meningococcal Polysaccharide (groups A, C, Y and W-135) conjugate vaccine (MCV4P) Unknown Completed [facility] TDAP (ADACEL) VACCINE Unknown Completed [facility] Influenza Virus Vaccine Quad .5 mL IM 6+ MO (FLUZONE/FLULAVAL/FL UARIX) Unknown Completed [facility] TDAP (ADACEL) VACCINE Unknown Completed [facility] TDAP (ADACEL) VACCINE Unknown Completed [facility] Influenza Virus Vaccine Quad .5 mL IM 6+ MO (FLUZONE/FLULAVAL/FL UARIX) Unknown Completed [facility] HPV Unknown Completed [facility] Meningococcal Polysaccharide (groups A, C, Y and W-135) conjugate vaccine (MCV4P) Unknown Completed [facility] Varicella (varivax)(chicken pox) Unknown Completed [facility] SARS-COV-2 COVID-19 VACCINE - (MODERNA) Unknown Completed [facility] SARS-COV-2 COVID-19 VACCINE - (MODERNA) Unknown Completed [facility] DTaP, Unspecified Formulation Unknown Completed [facility] DTaP, Unspecified Formulation Unknown Completed [facility] DTaP, Unspecified Formulation Unknown Completed [facility] DTaP, Unspecified Formulation Unknown Completed [facility] HEPATITIS A Unknown Completed [facility] Hep B, Adol or Pedi Dosage Unknown Completed [facility] Hep B, Adol or Pedi Dosage Unknown Completed [facility] HIB 4 Dose Schedule Unknown Completed [facility] HIB 4 Dose Schedule Unknown Completed [facility] MMR Unknown Completed [facility] IPV Unknown Completed [facility] IPV Unknown Completed [facility] Poliovirus, Live, Oral, Trivalent Unknown Completed [facility] Poliovirus, Live, Oral, Trivalent Unknown Completed [facility] Tetanus/Diptheria [facility] Influenza Virus Vaccine Quad IM, Preserv and ABX Free 6 MO-64 YRS (FLUCELVAX) Unknown Completed [facility] HPV Unknown Completed [facility] Meningococcal Polysaccharide (groups A, C, Y and W-135) conjugate vaccine (MCV4P) Unknown Completed [facility] TDAP (ADACEL) VACCINE Unknown Completed [facility] Influenza Virus Vaccine Quad .5 mL IM 6+ MO (FLUZONE/FLULAVAL/FL UARIX) Unknown Completed [facility] TDAP (ADACEL) VACCINE Unknown Completed [facility] TDAP (ADACEL) VACCINE Unknown Completed [facility] Influenza Virus Vaccine Quad .5 mL IM 6+ MO (FLUZONE/FLULAVAL/FL UARIX) Unknown Completed [facility] HPV Unknown Completed [facility] Meningococcal Polysaccharide (groups A, C, Y and W-135) conjugate vaccine (MCV4P) Unknown Completed [facility] Varicella (varivax)(chicken pox) Unknown Completed [facility] SARS-COV-2 COVID-19 VACCINE - (MODERNA) Unknown Completed [facility] SARS-COV-2 COVID-19 VACCINE - (MODERNA) Unknown Completed [facility] DTaP, Unspecified Formulation Unknown Completed [facility] DTaP, Unspecified Formulation Unknown Completed [facility] DTaP, Unspecified Formulation Unknown Completed [facility] DTaP, Unspecified Formulation Unknown Completed [facility] HEPATITIS A Unknown Completed [facility] Hep B, Adol or Pedi Dosage Unknown Completed [facility] Hep B, Adol or Pedi Dosage Unknown Completed [facility] HIB 4 Dose Schedule Unknown Completed [facility] HIB 4 Dose Schedule Unknown Completed [facility] MMR Unknown Completed [facility] IPV Unknown Completed [facility] IPV Unknown Completed [facility] Poliovirus, Live, Oral, Trivalent Unknown Completed [facility] Poliovirus, Live, Oral, Trivalent Unknown Completed [facility] Tetanus/Diptheria Unknown [facility] Completed [facility] Influenza Virus Vaccine Quad IM, Preserv and ABX Free 6 MO-64 YRS (FLUCELVAX) Unknown Completed [facility] HPV Unknown Completed [facility] Meningococcal Polysaccharide (groups A, C, Y and W-135) conjugate vaccine (MCV4P) Unknown Completed [facility] TDAP (ADACEL) VACCINE Unknown Completed [facility] Influenza Virus Vaccine Quad .5 mL IM 6+ MO (FLUZONE/FLULAVAL/FL UARIX) Unknown Completed [facility] TDAP (ADACEL) VACCINE Unknown Completed [facility] TDAP (ADACEL) VACCINE Unknown Completed [facility] Influenza Virus Vaccine Quad .5 mL IM 6+ MO (FLUZONE/FLULAVAL/FL UARIX) Unknown Completed [facility] HPV Unknown Completed [facility] Meningococcal Polysaccharide (groups A, C, Y and W-135) conjugate vaccine (MCV4P) Unknown Completed [facility] Varicella (varivax)(chicken pox) Unknown Completed [facility] SARS-COV-2 COVID-19 VACCINE - (MODERNA) Unknown Completed [facility] SARS-COV-2 COVID-19 VACCINE - (MODERNA) Unknown Completed [facility] DTaP, Unspecified Formulation Unknown Completed [facility] DTaP, Unspecified Formulation Unknown Completed [facility] DTaP, Unspecified Formulation Unknown Completed [facility] DTaP, Unspecified Formulation Unknown Completed [facility] HEPATITIS A Unknown Completed [facility] Hep B, Adol or Pedi Dosage Unknown Completed [facility] Hep B, Adol or Pedi Dosage Unknown Completed [facility] HIB 4 Dose Schedule Unknown Completed [facility] HIB 4 Dose Schedule Unknown Completed [facility] MMR Unknown Completed [facility] IPV Unknown Completed [facility] IPV Unknown Completed [facility] Poliovirus, Live, Oral, Trivalent Unknown Completed [facility] Poliovirus, Live, Oral, Trivalent Unknown Completed [facility] Tetanus/Diptheria Unknown Completed [facility] TDAP Unknown Completed [facility] Influenza Virus Vaccine Quad IM, Preserv and ABX Free 6 MO-64 YRS (FLUCELVAX) Unknown Completed [facility] HPV Unknown Completed [facility] Meningococcal Polysaccharide (groups A, C, Y and W-135) conjugate vaccine (MCV4P) Unknown Completed [facility] TDAP (ADACEL) VACCINE Unknown Completed [facility] Influenza Virus Vaccine Quad .5 mL IM 6+ MO (FLUZONE/FLULAVAL/FL UARIX) Unknown Completed [facility] TDAP (ADACEL) VACCINE Unknown Completed [facility] TDAP (ADACEL) VACCINE Unknown Completed [facility] Influenza Virus Vaccine Quad .5 mL IM 6+ MO (FLUZONE/FLULAVAL/FL UARIX) Unknown Completed [facility] HPV Unknown Completed [facility] Meningococcal Polysaccharide (groups A, C, Y and W-135) conjugate vaccine (MCV4P) Unknown Completed [facility] Varicella (varivax)(chicken pox) Unknown Completed [facility] SARS-COV-2 COVID-19 VACCINE - (MODERNA) Unknown Completed [facility] SARS-COV-2 COVID-19 VACCINE - (MODERNA) Unknown Completed [facility] DTaP, Unspecified Formulation Unknown Completed [facility] DTaP, Unspecified Formulation Unknown Completed [facility] DTaP, Unspecified Formulation Unknown Completed [facility] DTaP, Unspecified Formulation Unknown Completed [facility] HEPATITIS A Unknown Completed [facility] Hep B, Adol or Pedi Dosage Unknown Completed [facility] Hep B, Adol or Pedi Dosage Unknown Completed [facility] HIB 4 Dose Schedule Unknown Completed [facility] HIB 4 Dose Schedule Unknown Completed [facility] MMR Unknown Completed [facility] IPV Unknown Completed [facility] IPV Unknown Completed [facility] Poliovirus, Live, Oral, Trivalent Unknown Completed [facility] Poliovirus, Live, Oral, Trivalent Unknown Completed [facility] Tetanus/Diptheria Unknown Completed [facility] TDAP Unknown Completed [facility] Influenza Virus Vaccine Quad IM, Preserv and ABX Free 6 MO-64 YRS (FLUCELVAX) Unknown Completed [facility] HPV Unknown Completed [facility] Meningococcal Polysaccharide (groups A, C, Y and W-135) conjugate vaccine (MCV4P) Unknown Completed [facility] TDAP (ADACEL) VACCINE Unknown Completed [facility] Influenza Virus Vaccine Quad .5 mL IM 6+ MO (FLUZONE/FLULAVAL/FL UARIX) Unknown Completed [facility] TDAP (ADACEL) VACCINE Unknown Completed [facility] TDAP (ADACEL) VACCINE Unknown Completed [facility] Influenza Virus Vaccine Quad .5 mL IM 6+ MO (FLUZONE/FLULAVAL/FL UARIX) Unknown Completed [facility] HPV Unknown Completed [facility] Meningococcal Polysaccharide (groups A, C, Y and W-135) conjugate vaccine (MCV4P) Unknown Completed [facility] Varicella (varivax)(chicken pox) Unknown Completed [facility] SARS-COV-2 COVID-19 VACCINE - (MODERNA) Unknown Completed [facility] SARS-COV-2 COVID-19 VACCINE - (MODERNA) Unknown Completed [facility] DTaP, Unspecified Formulation Unknown Completed [facility] DTaP, Unspecified Formulation Unknown Completed [facility] DTaP, Unspecified Formulation Unknown Completed [facility] DTaP, Unspecified Formulation Unknown Completed [facility] HEPATITIS A Unknown Completed [facility] Hep B, Adol or Pedi Dosage Unknown Completed [facility] Hep B, Adol or Pedi Dosage Unknown Completed [facility] HIB 4 Dose Schedule Unknown Completed [facility] HIB 4 Dose Schedule Unknown Completed [facility] MMR Unknown Completed [facility] IPV Unknown Completed [facility] IPV Unknown Completed [facility] Poliovirus, Live, Oral, Trivalent Unknown Completed [facility] Poliovirus, Live, Oral, Trivalent Unknown Completed [facility] Tetanus/Diptheria Unknown Completed [facility] TDAP Unknown Completed [facility] Influenza Virus Vaccine Quad IM, Preserv and ABX Free 6 MO-64 YRS (FLUCELVAX) Unknown Completed [facility] HPV Unknown Completed [facility] Meningococcal Polysaccharide (groups A, C, Y and W-135) conjugate vaccine (MCV4P) Unknown Completed [facility] TDAP (ADACEL) VACCINE Unknown Completed [facility] Influenza Virus Vaccine Quad .5 mL IM 6+ MO (FLUZONE/FLULAVAL/FL UARIX) Unknown Completed [facility] TDAP (ADACEL) VACCINE Unknown Completed [facility] TDAP (ADACEL) VACCINE Unknown Completed [facility] Influenza Virus Vaccine Quad .5 mL IM 6+ MO (FLUZONE/FLULAVAL/FL UARIX) Unknown Completed [facility] HPV Unknown Completed [facility] Meningococcal Polysaccharide (groups A, C, Y and W-135) conjugate vaccine (MCV4P) Unknown Completed [facility] Varicella (varivax)(chicken pox) Unknown Completed [facility] SARS-COV-2 COVID-19 VACCINE - (MODERNA) Unknown Completed [facility] SARS-COV-2 COVID-19 VACCINE - (MODERNA) Unknown Completed [facility] DTaP, Unspecified Formulation Unknown Completed [facility] DTaP, Unspecified Formulation Unknown Completed [facility] DTaP, Unspecified Formulation Unknown Completed [facility] DTaP, Unspecified Formulation Unknown Completed [facility] HEPATITIS A Unknown Completed [facility] Hep B, Adol or Pedi Dosage Unknown Completed [facility] Hep B, Adol or Pedi Dosage Unknown Completed [facility] HIB 4 Dose Schedule Unknown Completed [facility] HIB 4 Dose Schedule Unknown Completed [facility] MMR Unknown Completed [facility] IPV Unknown Completed [facility] IPV Unknown Completed [facility] Poliovirus, Live, Oral, Trivalent Unknown Completed [facility] Poliovirus, Live, Oral, Trivalent Unknown Completed [facility] Tetanus/Diptheria Unknown Completed [facility] TDAP Unknown Completed [facility] Influenza Virus Vaccine Quad IM, Preserv and ABX Free 6 MO-64 YRS (FLUCELVAX) Unknown Completed [facility] HPV Unknown Completed [facility] Meningococcal Polysaccharide (groups A, C, Y and W-135) conjugate vaccine (MCV4P) Unknown Completed [facility] TDAP (ADACEL) VACCINE Unknown Completed [facility] Influenza Virus Vaccine Quad .5 mL IM 6+ MO (FLUZONE/FLULAVAL/FL UARIX) Unknown Completed [facility] TDAP (ADACEL) VACCINE Unknown Completed [facility] TDAP (ADACEL) VACCINE Unknown Completed [facility] Influenza Virus Vaccine Quad .5 mL IM 6+ MO (FLUZONE/FLULAVAL/FL UARIX) Unknown Completed [facility] HPV Unknown Completed [facility] Meningococcal Polysaccharide (groups A, C, Y and W-135) conjugate vaccine (MCV4P) Unknown Completed [facility] Varicella (varivax)(chicken pox) Unknown Completed [facility] SARS-COV-2 COVID-19 VACCINE - (MODERNA) Unknown Completed [facility] SARS-COV-2 COVID-19 VACCINE - (MODERNA) Unknown Completed [facility] DTaP, Unspecified Formulation Unknown Completed [facility] DTaP, Unspecified Formulation Unknown Completed [facility] DTaP, Unspecified Formulation Unknown Completed [facility] DTaP, Unspecified Formulation Unknown Completed [facility] HEPATITIS A Unknown Completed [facility] Hep B, Adol or Pedi Dosage Unknown Completed [facility] Hep B, Adol or Pedi Dosage Unknown Completed [facility] HIB 4 Dose Schedule Unknown Completed [facility] HIB 4 Dose Schedule Unknown Completed [facility] MMR Unknown Completed [facility] IPV Unknown Completed [facility] IPV Unknown Completed [facility] Poliovirus, Live, Oral, Trivalent Unknown Completed [facility] Poliovirus, Live, Oral, Trivalent Unknown Completed [facility] Tetanus/Diptheria Unknown [facility] Com[facility] Influenza Virus Vaccine Quad IM, Preserv and ABX Free 6 MO-64 YRS (FLUCELVAX) Unknown Completed [facility] HPV Unknown Completed [facility] Meningococcal Polysaccharide (groups A, C, Y and W-135) conjugate vaccine (MCV4P) Unknown Completed [facility] TDAP (ADACEL) VACCINE Unknown Completed [facility] Influenza Virus Vaccine Quad .5 mL IM 6+ MO (FLUZONE/FLULAVAL/FL UARIX) Unknown Completed [facility] TDAP (ADACEL) VACCINE Unknown Completed [facility] TDAP (ADACEL) VACCINE Unknown Completed [facility] Influenza Virus Vaccine Quad .5 mL IM 6+ MO (FLUZONE/FLULAVAL/FL UARIX) Unknown Completed [facility] HPV Unknown Completed [facility] Meningococcal Polysaccharide (groups A, C, Y and W-135) conjugate vaccine (MCV4P) Unknown Completed [facility] Varicella (varivax)(chicken pox) Unknown Completed [facility] SARS-COV-2 COVID-19 VACCINE - (MODERNA) Unknown Completed [facility] SARS-COV-2 COVID-19 VACCINE - (MODERNA) Unknown Completed [facility] DTaP, Unspecified Formulation Unknown Completed [facility] DTaP, Unspecified Formulation Unknown Completed [facility] DTaP, Unspecified Formulation Unknown Completed [facility] DTaP, Unspecified Formulation Unknown Completed [facility] HEPATITIS A Unknown Completed [facility] Hep B, Adol or Pedi Dosage Unknown Completed [facility] Hep B, Adol or Pedi Dosage Unknown Completed [facility] HIB 4 Dose Schedule Unknown Completed [facility] HIB 4 Dose Schedule Unknown Completed [facility] MMR Unknown Completed [facility] IPV Unknown Completed [facility] IPV Unknown Completed [facility] Poliovirus, Live, Oral, Trivalent Unknown Completed [facility] Poliovirus, Live, Oral, Trivalent Unknown Completed [facility] Tetanus/Diptheria Unknown Completed [facility] TDAP Unknown Completed [facility] Influenza Virus Vaccine Quad IM, Preserv and ABX Free 6 MO-64 YRS (FLUCELVAX) Unknown Completed [facility] HPV Unknown Completed [facility] Meningococcal Polysaccharide (groups A, C, Y and W-135) conjugate vaccine (MCV4P) Unknown Completed [facility] TDAP (ADACEL) VACCINE Unknown Completed [facility] Influenza Virus Vaccine Quad .5 mL IM 6+ MO (FLUZONE/FLULAVAL/FL UARIX) Unknown Completed [facility] TDAP (ADACEL) VACCINE Unknown Completed [facility] TDAP (ADACEL) VACCINE Unknown Completed [facility] Influenza Virus Vaccine Quad .5 mL IM 6+ MO (FLUZONE/FLULAVAL/FL UARIX) Unknown Completed [facility] HPV Unknown Completed [facility] Meningococcal Polysaccharide (groups A, C, Y and W-135) conjugate vaccine (MCV4P) Unknown Completed [facility] Varicella (varivax)(chicken pox) Unknown Completed [facility] SARS-COV-2 COVID-19 VACCINE - (MODERNA) Unknown Completed [facility] SARS-COV-2 COVID-19 VACCINE - (MODERNA) Unknown Completed [facility] DTaP, Unspecified Formulation Unknown Completed [facility] DTaP, Unspecified Formulation Unknown Completed [facility] DTaP, Unspecified Formulation Unknown Completed [facility] DTaP, Unspecified Formulation Unknown Completed [facility] HEPATITIS A Unknown Completed [facility] Hep B, Adol or Pedi Dosage Unknown Completed [facility] Hep B, Adol or Pedi Dosage Unknown Completed [facility] HIB 4 Dose Schedule Unknown Completed [facility] HIB 4 Dose Schedule Unknown Completed [facility] MMR Unknown Completed [facility] IPV Unknown Completed [facility] IPV Unknown Completed [facility] Poliovirus, Live, Oral, Trivalent Unknown Completed [facility] Poliovirus, Live, Oral, Trivalent Unknown Completed [facility] Tetanus/Diptheria Unknown Completed Un [facility] TDAP Unknown Completed [facility] [facility] Vaccine Quad IM, Preserv and ABX Free 6 MO-64 YRS (FLUCELVAX) Unknown Completed [facility] HPV Unknown Completed [facility] Meningococcal Polysaccharide (groups A, C, Y and W-135) conjugate vaccine (MCV4P) Unknown Completed [facility] TDAP (ADACEL) VACCINE Unknown Completed [facility] Influenza Virus Vaccine Quad .5 mL IM 6+ MO (FLUZONE/FLULAVAL/FL UARIX) Unknown Completed [facility] TDAP (ADACEL) VACCINE Unknown Completed [facility] TDAP (ADACEL) VACCINE Unknown Completed [facility] Influenza Virus Vaccine Quad .5 mL IM 6+ MO (FLUZONE/FLULAVAL/FL UARIX) Unknown Completed [facility] HPV Unknown Completed [facility] Meningococcal Polysaccharide (groups A, C, Y and W-135) conjugate vaccine (MCV4P) Unknown Completed [facility] Varicella (varivax)(chicken pox) Unknown Completed [facility] SARS-COV-2 COVID-19 VACCINE - (MODERNA) Unknown Completed [facility] SARS-COV-2 COVID-19 VACCINE - (MODERNA) Unknown Completed [facility] DTaP, Unspecified Formulation Unknown Completed [facility] DTaP, Unspecified Formulation Unknown Completed [facility] DTaP, Unspecified Formulation Unknown Completed [facility] DTaP, Unspecified Formulation Unknown Completed [facility] HEPATITIS A Unknown Completed [facility] Hep B, Adol or Pedi Dosage Unknown Completed [facility] Hep B, Adol or Pedi Dosage Unknown Completed [facility] HIB 4 Dose Schedule Unknown Completed [facility] HIB 4 Dose Schedule Unknown Completed [facility] MMR Unknown Completed [facility] IPV Unknown Completed [facility] IPV Unknown Completed [facility] Poliovirus, Live, Oral, Trivalent Unknown Completed [facility] Poliovirus, Live, Oral, Trivalent Unknown Completed [facility] Tetanus/Diptheria Unknown [facility] Influenza Virus Vaccine Quad IM, Preserv and ABX Free 6 MO-64 YRS (FLUCELVAX) Unknown Completed [facility] HPV Unknown Completed [facility] Meningococcal Polysaccharide (groups A, C, Y and W-135) conjugate vaccine (MCV4P) Unknown Completed [facility] TDAP (ADACEL) VACCINE Unknown Completed [facility] Influenza Virus Vaccine Quad .5 mL IM 6+ MO (FLUZONE/FLULAVAL/FL UARIX) Unknown Completed [facility] TDAP (ADACEL) VACCINE Unknown Completed [facility] TDAP (ADACEL) VACCINE Unknown Completed [facility] Influenza Virus Vaccine Quad .5 mL IM 6+ MO (FLUZONE/FLULAVAL/FL UARIX) Unknown Completed [facility] HPV Unknown Completed [facility] Meningococcal Polysaccharide (groups A, C, Y and W-135) conjugate vaccine (MCV4P) Unknown Completed [facility] Varicella (varivax)(chicken pox) Unknown Completed [facility] SARS-COV-2 COVID-19 VACCINE - (MODERNA) Unknown Completed [facility] SARS-COV-2 COVID-19 VACCINE - (MODERNA) Unknown Completed [facility] DTaP, Unspecified Formulation Unknown Completed [facility] DTaP, Unspecified Formulation Unknown Completed [facility] DTaP, Unspecified Formulation Unknown Completed [facility] DTaP, Unspecified Formulation Unknown Completed [facility] HEPATITIS A Unknown Completed [facility] Hep B, Adol or Pedi Dosage Unknown Completed [facility] Hep B, Adol or Pedi Dosage Unknown Completed [facility] HIB 4 Dose Schedule Unknown Completed [facility] HIB 4 Dose Schedule Unknown Completed [facility] MMR Unknown Completed [facility] IPV Unknown Completed [facility] IPV Unknown Completed [facility] Poliovirus, Live, Oral, Trivalent Unknown Completed [facility] Poliovirus, Live, Oral, Trivalent Unknown Completed [facility] Tetanus/Diptheria Unknown [facility] Completed [facility] Influenza Virus Vaccine Quad IM, Preserv and ABX Free 6 MO-64 YRS (FLUCELVAX) Unknown Completed [facility] HPV Unknown Completed [facility] Meningococcal Polysaccharide (groups A, C, Y and W-135) conjugate vaccine (MCV4P) Unknown Completed [facility] TDAP (ADACEL) VACCINE Unknown Completed [facility] Influenza Virus Vaccine Quad .5 mL IM 6+ MO (FLUZONE/FLULAVAL/FL UARIX) Unknown Completed [facility] TDAP (ADACEL) VACCINE Unknown Completed [facility] TDAP (ADACEL) VACCINE Unknown Completed [facility] Influenza Virus Vaccine Quad .5 mL IM 6+ MO (FLUZONE/FLULAVAL/FL UARIX) Unknown Completed [facility] HPV Unknown Completed [facility] Meningococcal Polysaccharide (groups A, C, Y and W-135) conjugate vaccine (MCV4P) Unknown Completed [facility] Varicella (varivax)(chicken pox) Unknown Completed [facility] SARS-COV-2 COVID-19 VACCINE - (MODERNA) Unknown Completed [facility] SARS-COV-2 COVID-19 VACCINE - (MODERNA) Unknown Completed [facility] DTaP, Unspecified Formulation Unknown Completed [facility] DTaP, Unspecified Formulation Unknown Completed [facility] DTaP, Unspecified Formulation Unknown Completed [facility] DTaP, Unspecified Formulation Unknown Completed [facility] HEPATITIS A Unknown Completed [facility] Hep B, Adol or Pedi Dosage Unknown Completed [facility] Hep B, Adol or Pedi Dosage Unknown Completed [facility] HIB 4 Dose Schedule Unknown Completed [facility] HIB 4 Dose Schedule Unknown Completed [facility] MMR Unknown Completed [facility] IPV Unknown Completed [facility] IPV Unknown Completed [facility] Poliovirus, Live, Oral, Trivalent Unknown Completed [facility] Poliovirus, Live, Oral, Trivalent Unknown Completed [facility] Tetanus/Diptheria Unknown Completed [facility] TDAP Unknown Completed [facility] Influenza Virus Vaccine Quad IM, Preserv and ABX Free 6 MO-64 YRS (FLUCELVAX) Unknown Completed [facility] HPV Unknown Completed [facility] Meningococcal Polysaccharide (groups A, C, Y and W-135) conjugate vaccine (MCV4P) Unknown Completed [facility] TDAP (ADACEL) VACCINE Unknown Completed [facility] Influenza Virus Vaccine Quad .5 mL IM 6+ MO (FLUZONE/FLULAVAL/FL UARIX) Unknown Completed [facility] TDAP (ADACEL) VACCINE Unknown Completed [facility] TDAP (ADACEL) VACCINE Unknown Completed [facility] Influenza Virus Vaccine Quad .5 mL IM 6+ MO (FLUZONE/FLULAVAL/FL UARIX) Unknown Completed [facility] HPV Unknown Completed [facility] Meningococcal Polysaccharide (groups A, C, Y and W-135) conjugate vaccine (MCV4P) Unknown Completed [facility] Varicella (varivax)(chicken pox) Unknown Completed [facility] SARS-COV-2 COVID-19 VACCINE - (MODERNA) Unknown Completed [facility] SARS-COV-2 COVID-19 VACCINE - (MODERNA) Unknown Completed [facility] DTaP, Unspecified Formulation Unknown Completed [facility] DTaP, Unspecified Formulation Unknown Completed [facility] DTaP, Unspecified Formulation Unknown Completed [facility] DTaP, Unspecified Formulation Unknown Completed [facility] HEPATITIS A Unknown Completed [facility] Hep B, Adol or Pedi Dosage Unknown Completed [facility] Hep B, Adol or Pedi Dosage Unknown Completed [facility] HIB 4 Dose Schedule Unknown Completed [facility] HIB 4 Dose Schedule Unknown Completed [facility] MMR Unknown Completed [facility] IPV Unknown Completed [facility] IPV Unknown Completed [facility] Poliovirus, Live, Oral, Trivalent Unknown Completed [facility] Poliovirus, Live, Oral, Trivalent Unknown Completed [facility] Tetanus/Diptheria Unknown Completed [facility] TDAP Unknown Completed [facility] Influenza Virus Vaccine Quad IM, Preserv and ABX Free 6 MO-64 YRS (FLUCELVAX) Unknown Completed [facility] HPV Unknown Completed [facility] Meningococcal Polysaccharide (groups A, C, Y and W-135) conjugate vaccine (MCV4P) Unknown Completed [facility] TDAP (ADACEL) VACCINE Unknown Completed [facility] Influenza Virus Vaccine Quad .5 mL IM 6+ MO (FLUZONE/FLULAVAL/FL UARIX) Unknown Completed [facility] TDAP (ADACEL) VACCINE Unknown Completed [facility] TDAP (ADACEL) VACCINE Unknown Completed [facility] Influenza Virus Vaccine Quad .5 mL IM 6+ MO (FLUZONE/FLULAVAL/FL UARIX) Unknown Completed [facility] HPV Unknown Completed [facility] Meningococcal Polysaccharide (groups A, C, Y and W-135) conjugate vaccine (MCV4P) Unknown Completed [facility] Varicella (varivax)(chicken pox) Unknown Completed [facility] SARS-COV-2 COVID-19 VACCINE - (MODERNA) Unknown Completed [facility] SARS-COV-2 COVID-19 VACCINE - (MODERNA) Unknown Completed [facility] DTaP, Unspecified Formulation Unknown Completed [facility] DTaP, Unspecified Formulation Unknown Completed [facility] DTaP, Unspecified Formulation Unknown Completed [facility] DTaP, Unspecified Formulation Unknown Completed [facility] HEPATITIS A Unknown Completed [facility] Hep B, Adol or Pedi Dosage Unknown Completed [facility] Hep B, Adol or Pedi Dosage Unknown Completed [facility] HIB 4 Dose Schedule Unknown Completed [facility] HIB 4 Dose Schedule Unknown Completed [facility] MMR Unknown Completed [facility] IPV Unknown Completed [facility] IPV Unknown Completed [facility] Poliovirus, Live, Oral, Trivalent Unknown Completed [facility] Poliovirus, Live, Oral, Trivalent Unknown Completed [facility] Tetanus/Diptheria Unknown [facility] Completed [facility] Influenza Virus Vaccine Quad IM, Preserv and ABX Free 6 MO-64 YRS (FLUCELVAX) Unknown Completed [facility] HPV Unknown Completed [facility] Meningococcal Polysaccharide (groups A, C, Y and W-135) conjugate vaccine (MCV4P) Unknown Completed [facility] TDAP (ADACEL) VACCINE Unknown Completed [facility] Influenza Virus Vaccine Quad .5 mL IM 6+ MO (FLUZONE/FLULAVAL/FL UARIX) Unknown Completed [facility] TDAP (ADACEL) VACCINE Unknown Completed [facility] TDAP (ADACEL) VACCINE Unknown Completed [facility] Influenza Virus Vaccine Quad .5 mL IM 6+ MO (FLUZONE/FLULAVAL/FL UARIX) Unknown Completed [facility] HPV Unknown Completed [facility] Meningococcal Polysaccharide (groups A, C, Y and W-135) conjugate vaccine (MCV4P) Unknown Completed [facility] Varicella (varivax)(chicken pox) Unknown Completed [facility] SARS-COV-2 COVID-19 VACCINE - (MODERNA) Unknown Completed [facility] SARS-COV-2 COVID-19 VACCINE - (MODERNA) Unknown Completed [facility] DTaP, Unspecified Formulation Unknown Completed [facility] DTaP, Unspecified Formulation Unknown Completed [facility] DTaP, Unspecified Formulation Unknown Completed [facility] DTaP, Unspecified Formulation Unknown Completed [facility] HEPATITIS A Unknown Completed [facility] Hep B, Adol or Pedi Dosage Unknown Completed [facility] Hep B, Adol or Pedi Dosage Unknown Completed [facility] HIB 4 Dose Schedule Unknown Completed [facility] HIB 4 Dose Schedule Unknown Completed [facility] MMR Unknown Completed [facility] IPV Unknown Completed [facility] IPV Unknown Completed [facility] Poliovirus, Live, Oral, Trivalent Unknown Completed [facility] Poliovirus, Live, Oral, Trivalent Unknown Completed [facility] Tetanus/Diptheria [facility] Influenza Virus Vaccine Quad IM, Preserv and ABX Free 6 MO-64 YRS (FLUCELVAX) Unknown Completed [facility] HPV Unknown Completed [facility] Meningococcal Polysaccharide (groups A, C, Y and W-135) conjugate vaccine (MCV4P) Unknown Completed [facility] TDAP (ADACEL) VACCINE Unknown Completed [facility] Influenza Virus Vaccine Quad .5 mL IM 6+ MO (FLUZONE/FLULAVAL/FL UARIX) Unknown Completed [facility] TDAP (ADACEL) VACCINE Unknown Completed [facility] TDAP (ADACEL) VACCINE Unknown Completed [facility] Influenza Virus Vaccine Quad .5 mL IM 6+ MO (FLUZONE/FLULAVAL/FL UARIX) Unknown Completed [facility] HPV Unknown Completed [facility] Meningococcal Polysaccharide (groups A, C, Y and W-135) conjugate vaccine (MCV4P) Unknown Completed [facility] Varicella (varivax)(chicken pox) Unknown Completed [facility] SARS-COV-2 COVID-19 VACCINE - (MODERNA) Unknown Completed [facility] SARS-COV-2 COVID-19 VACCINE - (MODERNA) Unknown Completed [facility] DTaP, Unspecified Formulation Unknown Completed [facility] DTaP, Unspecified Formulation Unknown Completed [facility] DTaP, Unspecified Formulation Unknown Completed [facility] DTaP, Unspecified Formulation Unknown Completed [facility] HEPATITIS A Unknown Completed [facility] Hep B, Adol or Pedi Dosage Unknown Completed [facility] Hep B, Adol or Pedi Dosage Unknown Completed [facility] HIB 4 Dose Schedule Unknown Completed [facility] HIB 4 Dose Schedule Unknown Completed [facility] MMR Unknown Completed [facility] IPV Unknown Completed [facility] IPV Unknown Completed [facility] Poliovirus, Live, Oral, Trivalent Unknown Completed [facility] Poliovirus, Live, Oral, Trivalent Unknown Completed [facility] Tetanus/Diptheria Unknown [facility] Com[facility] Influenza Virus Vaccine Quad IM, Preserv and ABX Free 6 MO-64 YRS (FLUCELVAX) Unknown Completed [facility] HPV Unknown Completed [facility] Meningococcal Polysaccharide (groups A, C, Y and W-135) conjugate vaccine (MCV4P) Unknown Completed [facility] TDAP (ADACEL) VACCINE Unknown Completed [facility] Influenza Virus Vaccine Quad .5 mL IM 6+ MO (FLUZONE/FLULAVAL/FL UARIX) Unknown Completed [facility] TDAP (ADACEL) VACCINE Unknown Completed [facility] TDAP (ADACEL) VACCINE Unknown Completed [facility] Influenza Virus Vaccine Quad .5 mL IM 6+ MO (FLUZONE/FLULAVAL/FL UARIX) Unknown Completed [facility] HPV Unknown Completed [facility] Meningococcal Polysaccharide (groups A, C, Y and W-135) conjugate vaccine (MCV4P) Unknown Completed [facility] Varicella (varivax)(chicken pox) Unknown Completed [facility] SARS-COV-2 COVID-19 VACCINE - (MODERNA) Unknown Completed [facility] SARS-COV-2 COVID-19 VACCINE - (MODERNA) Unknown Completed [facility] DTaP, Unspecified Formulation Unknown Completed [facility] DTaP, Unspecified Formulation Unknown Completed [facility] DTaP, Unspecified Formulation Unknown Completed [facility] DTaP, Unspecified Formulation Unknown Completed [facility] HEPATITIS A Unknown Completed [facility] Hep B, Adol or Pedi Dosage Unknown Completed [facility] Hep B, Adol or Pedi Dosage Unknown Completed [facility] HIB 4 Dose Schedule Unknown Completed [facility] HIB 4 Dose Schedule Unknown Completed [facility] MMR Unknown Completed [facility] IPV Unknown Completed [facility] IPV Unknown Completed [facility] Poliovirus, Live, Oral, Trivalent Unknown Completed [facility] Poliovirus, Live, Oral, Trivalent Unknown Completed [facility] Tetanus/Diptheria Unknown [facility] Com[facility] Influenza Virus Vaccine Quad IM, Preserv and ABX Free 6 MO-64 YRS (FLUCELVAX) Unknown Completed [facility] HPV Unknown Completed [facility] Meningococcal Polysaccharide (groups A, C, Y and W-135) conjugate vaccine (MCV4P) Unknown Completed [facility] TDAP (ADACEL) VACCINE Unknown Completed [facility] Influenza Virus Vaccine Quad .5 mL IM 6+ MO (FLUZONE/FLULAVAL/FL UARIX) Unknown Completed [facility] TDAP (ADACEL) VACCINE Unknown Completed [facility] TDAP (ADACEL) VACCINE Unknown Completed [facility] Influenza Virus Vaccine Quad .5 mL IM 6+ MO (FLUZONE/FLULAVAL/FL UARIX) Unknown Completed [facility] HPV Unknown Completed [facility] Meningococcal Polysaccharide (groups A, C, Y and W-135) conjugate vaccine (MCV4P) Unknown Completed [facility] Varicella (varivax)(chicken pox) Unknown Completed [facility] SARS-COV-2 COVID-19 VACCINE - (MODERNA) Unknown Completed [facility] SARS-COV-2 COVID-19 VACCINE - (MODERNA) Unknown Completed [facility] DTaP, Unspecified Formulation Unknown Completed [facility] DTaP, Unspecified Formulation Unknown Completed [facility] DTaP, Unspecified Formulation Unknown Completed [facility] DTaP, Unspecified Formulation Unknown Completed [facility] HEPATITIS A Unknown Completed [facility] Hep B, Adol or Pedi Dosage Unknown Completed [facility] Hep B, Adol or Pedi Dosage Unknown Completed [facility] HIB 4 Dose Schedule Unknown Completed [facility] HIB 4 Dose Schedule Unknown Completed [facility] MMR Unknown Completed [facility] IPV Unknown Completed [facility] IPV Unknown Completed [facility] Poliovirus, Live, Oral, Trivalent Unknown Completed [facility] Poliovirus, Live, Oral, Trivalent Unknown Completed [facility] Tetanus/Diptheria Unknown [facility] Completed [facility] Influenza Virus Vaccine Quad IM, Preserv and ABX Free 6 MO-64 YRS (FLUCELVAX) Unknown Completed [facility] HPV Unknown Completed [facility] Meningococcal Polysaccharide (groups A, C, Y and W-135) conjugate vaccine (MCV4P) Unknown Completed [facility] TDAP (ADACEL) VACCINE Unknown Completed [facility] Influenza Virus Vaccine Quad .5 mL IM 6+ MO (FLUZONE/FLULAVAL/FL UARIX) Unknown Completed [facility] TDAP (ADACEL) VACCINE Unknown Completed [facility] TDAP (ADACEL) VACCINE Unknown Completed [facility] Influenza Virus Vaccine Quad .5 mL IM 6+ MO (FLUZONE/FLULAVAL/FL UARIX) Unknown Completed [facility] HPV Unknown Completed [facility] Meningococcal Polysaccharide (groups A, C, Y and W-135) conjugate vaccine (MCV4P) Unknown Completed [facility] Varicella (varivax)(chicken pox) Unknown Completed [facility] SARS-COV-2 COVID-19 VACCINE - (MODERNA) Unknown Completed [facility] SARS-COV-2 COVID-19 VACCINE - (MODERNA) Unknown Completed [facility] DTaP, Unspecified Formulation Unknown Completed [facility] DTaP, Unspecified Formulation Unknown Completed [facility] DTaP, Unspecified Formulation Unknown Completed [facility] DTaP, Unspecified Formulation Unknown Completed [facility] HEPATITIS A Unknown Completed [facility] Hep B, Adol or Pedi Dosage Unknown Completed [facility] Hep B, Adol or Pedi Dosage Unknown Completed [facility] HIB 4 Dose Schedule Unknown Completed [facility] HIB 4 Dose Schedule Unknown Completed [facility] MMR Unknown Completed [facility] IPV Unknown Completed [facility] IPV Unknown Completed [facility] Poliovirus, Live, Oral, Trivalent Unknown Completed [facility] Poliovirus, Live, Oral, Trivalent Unknown Completed [facility] Tetanus/Diptheria Unknown [facility] Com[facility] Influenza Virus Vaccine Quad IM, Preserv and ABX Free 6 MO-64 YRS (FLUCELVAX) Unknown Completed [facility] DTAP Unknown Completed [facility] HIB 4 Dose Schedule Unknown Completed [facility] Hep B, Adol or Pedi Dosage Unknown Completed [facility] MMR Unknown Completed [facility] Polio (IPV/OPV) Unknown Completed [facility] Varicella (varivax)(chicken pox) Unknown Completed [facility] DTAP Unknown Completed [facility] Hep B, Adol or Pedi Dosage Unknown Completed [facility] HIB 4 Dose Schedule Unknown Completed [facility] Polio (IPV/OPV) Unknown Completed [facility] MMR Unknown Completed [facility] Varicella (varivax)(chicken pox) Unknown Completed [facility] HPV Unknown Completed [facility] Meningococcal Polysaccharide (groups A, C, Y and W-135) conjugate vaccine (MCV4P) Unknown Completed [facility] TDAP (ADACEL) VACCINE Unknown Completed [facility] Influenza Virus Vaccine Quad .5 mL IM 6+ MO (FLUZONE/FLULAVAL/FL UARIX) Unknown Completed [facility] TDAP (ADACEL) VACCINE Unknown Completed [facility] TDAP (ADACEL) VACCINE Unknown Completed [facility] Influenza Virus Vaccine Quad .5 mL IM 6+ MO (FLUZONE/FLULAVAL/FL UARIX) Unknown Completed [facility] HPV Unknown Completed [facility] Meningococcal Polysaccharide (groups A, C, Y and W-135) conjugate vaccine (MCV4P) Unknown Completed [facility] Varicella (varivax)(chicken pox) Unknown Completed [facility] SARS-COV-2 COVID-19 VACCINE - (MODERNA) Unknown Completed [facility] SARS-COV-2 COVID-19 VACCINE - (MODERNA) Unknown Completed [facility] DTaP, Unspecified Formulation Unknown Completed [facility] DTaP, Unspecified Formulation Unknown Completed [facility] DTaP, Unspecified Formulation Unknown Completed [facility] DTaP, Unspecified Formulation Unknown Completed [facility] HEPATITIS A Unknown Completed [facility] Hep B, Adol or Pedi Dosage Unknown Completed [facility] Hep B, Adol or Pedi Dosage Unknown Completed [facility] HIB 4 Dose Schedule Unknown Completed [facility] HIB 4 Dose Schedule Unknown Completed [facility] MMR Unknown Completed [facility] IPV Unknown Completed [facility] IPV Unknown Completed [facility] Poliovirus, Live, Oral, Trivalent Unknown Completed [facility] Poliovirus, Live, Oral, Trivalent Unknown Completed [facility] Tetanus/Diptheria Unknown [facility] Com[facility] Influenza Virus Vaccine Quad IM, Preserv and ABX Free 6 MO-64 YRS (FLUCELVAX) Unknown Completed [facility] HPV Unknown Completed [facility] Meningococcal Polysaccharide (groups A, C, Y and W-135) conjugate vaccine (MCV4P) Unknown Completed [facility] TDAP (ADACEL) VACCINE Unknown Completed [facility] Influenza Virus Vaccine Quad .5 mL IM 6+ MO (FLUZONE/FLULAVAL/FL UARIX) Unknown Completed [facility] TDAP (ADACEL) VACCINE Unknown Completed [facility] TDAP (ADACEL) VACCINE Unknown Completed [facility] Influenza Virus Vaccine Quad .5 mL IM 6+ MO (FLUZONE/FLULAVAL/FL UARIX) Unknown Completed [facility] HPV Unknown Completed [facility] Meningococcal Polysaccharide (groups A, C, Y and W-135) conjugate vaccine (MCV4P) Unknown Completed [facility] Varicella (varivax)(chicken pox) Unknown Completed [facility] SARS-COV-2 COVID-19 VACCINE - (MODERNA) Unknown Completed [facility] SARS-COV-2 COVID-19 VACCINE - (MODERNA) Unknown Completed [facility] DTaP, Unspecified Formulation Unknown Completed [facility] DTaP, Unspecified Formulation Unknown Completed [facility] DTaP, Unspecified Formulation Unknown Completed [facility] DTaP, Unspecified Formulation Unknown Completed [facility] HEPATITIS A Unknown Completed [facility] Hep B, Adol or Pedi Dosage Unknown Completed [facility] Hep B, Adol or Pedi Dosage Unknown Completed [facility] HIB 4 Dose Schedule Unknown Completed [facility] HIB 4 Dose Schedule Unknown Completed [facility] MMR Unknown Completed [facility] IPV Unknown Completed [facility] IPV Unknown Completed [facility] Poliovirus, Live, Oral, Trivalent Unknown Completed [facility] Poliovirus, Live, Oral, Trivalent Unknown Completed [facility] Tetanus[facility]Diptheria [facility] Influenza Virus Vaccine Quad IM, Preserv and ABX Free 6 MO-64 YRS (FLUCELVAX) Unknown Completed [facility] HPV Unknown Completed [facility] Meningococcal Polysaccharide (groups A, C, Y and W-135) conjugate vaccine (MCV4P) Unknown Completed [facility] TDAP (ADACEL) VACCINE Unknown Completed [facility] Influenza Virus Vaccine Quad .5 mL IM 6+ MO (FLUZONE/FLULAVAL/FL UARIX) Unknown Completed [facility] TDAP (ADACEL) VACCINE Unknown Completed [facility] TDAP (ADACEL) VACCINE Unknown Completed [facility] Influenza Virus Vaccine Quad .5 mL IM 6+ MO (FLUZONE/FLULAVAL/FL UARIX) Unknown Completed [facility] HPV Unknown Completed [facility] Meningococcal Polysaccharide (groups A, C, Y and W-135) conjugate vaccine (MCV4P) Unknown Completed [facility] Varicella (varivax)(chicken pox) Unknown Completed [facility] SARS-COV-2 COVID-19 VACCINE - (MODERNA) Unknown Completed [facility] SARS-COV-2 COVID-19 VACCINE - (MODERNA) Unknown Completed [facility] DTaP, Unspecified Formulation Unknown Completed [facility] DTaP, Unspecified Formulation Unknown Completed [facility] DTaP, Unspecified Formulation Unknown Completed [facility] DTaP, Unspecified Formulation Unknown Completed [facility] HEPATITIS A Unknown Completed [facility] Hep B, Adol or Pedi Dosage Unknown Completed [facility] Hep B, Adol or Pedi Dosage Unknown Completed [facility] HIB 4 Dose Schedule Unknown Completed [facility] HIB 4 Dose Schedule Unknown Completed [facility] MMR Unknown Completed [facility] IPV Unknown Completed [facility] IPV Unknown Completed [facility] Poliovirus, Live, Oral, Trivalent Unknown Completed [facility] Poliovirus, Live, Oral, Trivalent Unknown Completed [facility] Tetanus/Diptheria Unknown [facility] Completed [facility] Influenza Virus Vaccine Quad IM, Preserv and ABX Free 6 MO-64 YRS (FLUCELVAX) Unknown Completed [facility] Vital Signs Vital Name Observation Time Observation Value Comments S ource Systolic blood pressure 2023-10-10 17:38:00 102 mm[Hg] [facility] Diastolic blood pressure 2023-10-10 17:38:00 78 mm[Hg] [facility] Heart rate 2023-10-10 17:38:00 84 /min Unive [facility] Respiratory rate 2023-10-10 17:38:00 18 /min [facility] Body weight 2023-10-10 17:38:00 92.987 kg [facility] BMI 2023-10-10 17:38:00 34.11 kg/m2 [facility] Oxygen saturation in Arterial blood by Pulse oximetry 2023-10-10 17:38:00 99 /min [facility] Systolic blood pressure 2023-09-27 13:45:00 105 mm[Hg] [facility] Diastolic blood pressure 2023-09-27 13:45:00 52 mm[Hg] [facility] Heart rate 2023-09-27 13:45:00 63 [facility] Body temperature 2023-09-27 13:45:00 36.61 Roselia [facility] Respiratory rate 2023-09-27 13:45:00 16 /min [facility] Oxygen saturation in Arterial blood by Pulse oximetry 2023-09-27 13:45:00 99 /min [facility] Body weight 2023-09-26 14:00:00 103 kg [facility] BMI 2023-09-26 14:00:00 37.79 kg/m2 [facility] Systolic blood pressure 2023-09-18 21:43:00 119 mm[Hg] [facility] Diastolic blood pressure 2023-09-18 21:43:00 75 mm[Hg] [facility] Heart rate 2023-09-18 21:43:00 86 /min [facility] Body temperature 2023-09-18 21:43:00 36.78 Roselia [facility] Respiratory rate 2023-09-18 21:43:00 18 /min [facility] Body height 2023-09-18 21:43:00 165.1 cm [facility] Body weight 2023-09-18 21:43:[address] [facility] BMI 2023-09-18 21:43:00 37.51 kg/m2 [facility] Oxygen saturation in Arterial blood by Pulse oximetry 2023-09-18 21:43:00 100 /min [facility] Systolic blood pressure 2023-09-16 09:30:00 118 mm[Hg] [facility] Diastolic blood pressure 2023-09-16 09:30:00 70 mm[Hg] [facility] Heart rate 2023-09-16 09:30:00 93 /min Unive [facility] Body temperature 2023-09-16 09:30:00 36.83 Roselia [facility] Oxygen saturation in Arterial blood by Pulse oximetry 2023-09-16 09:30:00 100 /min [facility] Respiratory rate 2023-09-16 07:45:00 17 /min [facility] Respiratory rate 2023-09-11 22:18:00 16 /min [facility] Body weight 2023-09-11 22:18:[address] [facility] BMI 2023-09-11 22:18:00 36.18 kg/m2 [facility] Oxygen saturation in Arterial blood by Pulse oximetry 2023-09-11 22:18:00 100 /min [facility] Systolic blood pressure 2023-09-11 22:18:00 125 mm[Hg] [facility] Diastolic blood pressure 2023-09-11 22:18:00 73 mm[Hg] [facility] Heart rate 2023-09-11 22:18:00 86 /min Unive [facility] Body temperature 2023-09-11 22:18:00 37.28 Roselia [facility] Systolic blood pressure 2023-09-08 03:30:00 125 mm[Hg] [facility] Diastolic blood pressure 2023-09-08 03:30:00 65 mm[Hg] [facility] Heart rate 2023-09-08 03:30:00 92 /min [facility] Oxygen saturation in Arterial blood by Pulse oximetry 2023-09-08 03:30:00 100 /min [facility] Body temperature 2023-09-08 02:40:00 36.61 Roselia [facility] Respiratory rate 2023-09-08 02:40:00 17 /min [facility] Systolic blood pressure 2023-09-03 22:00:00 112 mm[Hg] [facility] Diastolic blood pressure 2023-09-03 22:00:00 70 mm[Hg] [facility] Heart rate 2023-09-03 22:00:00 109 /min Unive [facility] Oxygen saturation in Arterial blood by Pulse oximetry 2023-09-03 22:00:00 100 /min [facility] Body temperature 2023-09-03 21:37:00 36.78 Roselia [facility] Respiratory rate 2023-09-03 21:37:00 16 /min [facility] Body height 2023-09-03 21:13:00 165.1 cm [facility] Body weight 2023-09-03 21:13:[address] [facility] BMI 2023-09-03 21:13:00 35.51 kg/m2 [facility] Systolic blood pressure 2023-09-02 20:21:00 113 mm[Hg] [facility] Diastolic blood pressure 2023-09-02 20:21:00 67 mm[Hg] [facility] Heart rate 2023-09-02 20:21:00 93 /min Unive [facility] Body temperature 2023-09-02 20:21:00 36.83 Roselia [facility] Respiratory rate 2023-09-02 20:21:00 16 /min [facility] Body height 2023-09-02 20:21:00 165.1 cm [facility] Body weight 2023-09-02 20:21:[address] [facility] BMI 2023-09-02 20:21:00 34.95 kg/m2 [facility] Oxygen saturation in Arterial blood by Pulse oximetry 2023-09-02 20:21:00 97 /min [facility] Systolic blood pressure 2023-08-28 17:08:00 108 mm[Hg] [facility] Diastolic blood pressure 2023-08-28 17:08:00 69 mm[Hg] [facility] Heart rate 2023-08-28 17:08:00 90 /min [facility] Body temperature 2023-08-28 17:08:00 36.5 Roselia [facility] Body height 2023-08-28 17:08:00 165.1 cm [facility] Body weight 2023-08-28 17:08:00 94.439 kg [facility] BMI 2023-08-28 17:08:00 34.65 kg/m2 [facility] Heart rate 2023-08-22 18:00:00 84 /min [facility] Oxygen saturation in Arterial blood by Pulse oximetry 2023-08-22 18:00:00 99 /min [facility] Systolic blood pressure 2023-08-22 17:00:00 123 mm[Hg] [facility] Diastolic blood pressure 2023-08-22 17:00:00 63 mm[Hg] [facility] Body temperature 2023-08-22 17:00:00 36.06 Roselia [facility] Respiratory rate 2023-08-22 17:00:00 16 /min [facility] Body weight 2023-08-20 21:50:00 99.542 kg [facility] BMI 2023-08-20 21:50:00 36.52 kg/m2 [facility] Body height 2023-08-20 21:01:00 165.1 cm [facility] Systolic blood pressure 2023-08-04 16:25:00 108 mm[Hg] [facility] Diastolic blood pressure 2023-08-04 16:25:00 64 mm[Hg] [facility] Heart rate 2023-08-04 16:25:00 87 /min Unive [facility] Body temperature 2023-08-04 16:25:00 36.56 Roselia [facility] Respiratory rate 2023-08-04 16:25:00 18 /min [facility] Body height 2023-08-04 16:25:00 165.1 cm [facility] Body weight 2023-08-04 16:25:00 94.802 kg [facility] BMI 2023-08-04 16:25:00 34.78 kg/m2 [facility] Oxygen saturation in Arterial blood by Pulse oximetry 2023-08-04 16:25:00 99 /min [facility] Heart rate 2023-07-29 09:45:00 92 /min [facility] Oxygen saturation in Arterial blood by Pulse oximetry 2023-07-29 09:45:00 100 /min [facility] Body height 2023-07-29 09:38:00 165.1 cm [facility] Body weight 2023-07-29 09:38:[address] [facility] BMI 2023-07-29 09:38:00 35.81 kg/m2 [facility] Systolic blood pressure 2023-07-29 09:30:00 119 mm[Hg] [facility] Diastolic blood pressure 2023-07-29 09:30:00 64 mm[Hg] [facility] Body temperature 2023-07-29 09:30:00 36.67 Roselia [facility] Heart rate 2023-06-14 20:00:00 63 /min [facility] Oxygen saturation in Arterial blood by Pulse oximetry 2023-06-14 20:00:00 100 /min [facility] Systolic blood pressure 2023-06-14 18:02:00 112 mm[Hg] [facility] Diastolic blood pressure 2023-06-14 18:02:00 58 mm[Hg] [facility] Body temperature 2023-06-14 18:02:00 36.89 Roselia [facility] Respiratory rate 2023-06-14 18:02:00 16 /min [facility] Body height 2023-06-14 17:49:00 165.1 cm [facility] Body weight 2023-06-14 17:49:00 93.35 kg [facility] BMI 2023-06-14 17:49:00 34.25 kg/m2 [facility] Systolic blood pressure 2023-05-03 22:46:00 117 mm[Hg] [facility] Diastolic blood pressure 2023-05-03 22:46:00 70 mm[Hg] [facility] Heart rate 2023-05-03 22:46:00 94 /min [facility] Body temperature 2023-05-03 22:46:00 36.67 Roselia [facility] Respiratory rate 2023-05-03 22:46:00 18 /min [facility] Oxygen saturation in Arterial blood by Pulse oximetry 2023-05-03 22:46:00 99 /min [facility] Heart rate 2023-04-18 21:00:00 77 /min [facility] Oxygen saturation in Arterial blood by Pulse oximetry 2023-04-18 21:00:00 100 /min [facility] Systolic blood pressure 2023-04-18 20:00:00 138 mm[Hg] [facility] Diastolic blood pressure 2023-04-18 20:00:00 75 mm[Hg] [facility] Body temperature 2023-04-18 17:42:00 37.33 Roselia [facility] Respiratory rate 2023-04-18 17:42:00 16 /min [facility] Body height 2023-04-18 17:42:00 165.1 cm [facility] Body weight 2023-04-18 17:42:[address] [facility] BMI 2023-04-18 17:42:00 34.11 kg/m2 [facility] Systolic blood pressure 2023-04-02 13:43:00 122 mm[Hg] [facility] Diastolic blood pressure 2023-04-02 13:43:00 62 mm[Hg] [facility] Heart rate 2023-04-02 13:43:00 98 /min [facility] Body temperature 2023-04-02 13:43:00 36.61 Roselia [facility] Respiratory rate 2023-04-02 13:43:00 18 /min [facility] Body height 2023-04-02 13:43:00 165.1 cm [facility] Body weight 2023-04-02 13:43:00 94.575 kg [facility] BMI 2023-04-02 13:43:00 34.70 kg/m2 [facility] Systolic blood pressure 2023-03-11 18:08:00 119 mm[Hg] [facility] Diastolic blood pressure 2023-03-11 18:08:00 68 mm[Hg] [facility] Heart rate 2023-03-11 18:08:00 87 /min [facility] Body temperature 2023-03-11 18:08:00 36.78 Roselia [facility] Respiratory rate 2023-03-11 18:08:00 18 /min [facility] Body height 2023-03-11 18:08:00 165.1 cm [facility] Body weight 2023-03-11 18:08:[address] [facility] BMI 2023-03-11 18:08:00 34.13 kg/m2 [facility] Systolic blood pressure 2023-02-11 18:05:00 112 mm[Hg] [facility] Diastolic blood pressure 2023-02-11 18:05:00 64 mm[Hg] [facility] Heart rate 2023-02-11 18:05:00 73 /min Unive [facility] Body temperature 2023-02-11 18:05:00 36.78 Roselia [facility] Respiratory rate 2023-02-11 18:05:00 18 /min [facility] Body height 2023-02-11 18:05:00 165.1 cm [facility] Body weight 2023-02-11 18:05:[address] [facility] BMI 2023-02-11 18:05:00 32.47 kg/m2 [facility] Systolic blood pressure 2022-01-17 03:00:00 119 mm[Hg] [facility] Diastolic blood pressure 2022-01-17 03:00:00 62 mm[Hg] [facility] Heart rate 2022-01-17 03:00:00 68 /min Unive [facility] Respiratory rate 2022-01-17 03:00:00 16 /min [facility] Oxygen saturation in Arterial blood by Pulse oximetry 2022-01-17 03:00:00 100 /min [facility] Body temperature 2022-01-17 02:03:00 37.28 Roselia [facility] Body height 2022-01-17 02:03:00 165.1 cm [facility] Body weight 2022-01-17 02:03:[address] [facility] BMI 2022-01-17 02:03:00 33.28 kg/m2 [facility] Systolic blood pressure 2019-05-27 20:39:00 107 mm[Hg] [facility] Diastolic blood pressure 2019-05-27 20:39:00 63 mm[Hg] [facility] Heart rate 2019-05-27 20:39:00 77 /min [facility] Body temperature 2019-05-27 20:39:00 36.94 Roselia [facility] Respiratory rate 2019-05-27 20:39:00 18 /min [facility] Body height 2019-05-27 20:39:00 165.1 cm [facility] Body weight 2019-05-27 20:39:[address] [facility] BMI 2019-05-27 20:39:00 36.11 kg/m2 [facility] Systolic blood pressure 2019-05-27 20:39:00 107 mm[Hg] [facility] Diastolic blood pressure 2019-05-27 20:39:00 63 mm[Hg] [facility] Heart rate 2019-05-27 20:39:00 77 /min [facility] Body temperature 2019-05-27 20:39:00 36.94 Roselia [facility] Respiratory rate 2019-05-27 20:39:00 18 /min [facility] Body height 2019-05-27 20:39:00 165.1 cm [facility] Body weight 2019-05-27 20:39:00 98.431 kg [facility] BMI 2019-05-27 20:39:00 36.11 kg/m2 [facility] Systolic blood pressure 2019-05-17 21:39:00 114 mm[Hg] [facility] Diastolic blood pressure 2019-05-17 21:39:00 71 mm[Hg] [facility] Heart rate 2019-05-17 21:39:00 103 /min Unive [facility] Body temperature 2019-05-17 21:39:00 37.11 [facility] Respiratory rate 2019-05-17 21:39:00 18 /min [facility] Body height 2019-05-17 21:39:[address] [facility] Body weight 2019-05-17 21:39:[address] [facility] BMI 2019-05-17 21:39:00 36.74 kg/m2 [facility] Systolic blood pressure 2019-05-17 21:39:00 114 mm[Hg] [facility] Diastolic blood pressure 2019-05-17 21:39:00 71 mm[Hg] [facility] Heart rate 2019-05-17 21:39:00 103 /min [facility] Body temperature 2019-05-17 21:39:00 37.11 [facility] Respiratory rate 2019-05-17 21:39:00 18 /min [facility] Body height 2019-05-17 21:39:[address] [facility] Body weight 2019-05-17 21:39:[address] [facility] BMI 2019-05-17 21:39:00 36.74 kg/m2 [facility] Systolic blood pressure 2019-05-04 18:09:00 135 mm[Hg] [facility] Diastolic blood pressure 2019-05-04 18:09:00 68 mm[Hg] [facility] Heart rate 2019-05-04 18:09:00 96 /min [facility] Body temperature 2019-05-04 18:09:00 36.78 Roselia [facility] Respiratory rate 2019-05-04 18:09:00 22 /min [facility] Oxygen saturation in Arterial blood by Pulse oximetry 2019-05-04 18:09:00 100 /min [facility] Systolic blood pressure 2019-04-29 21:00:00 127 mm[Hg] [facility] Diastolic blood pressure 2019-04-29 21:00:00 68 mm[Hg] [facility] Heart rate 2019-04-29 21:00:00 87 /min [facility] Body temperature 2019-04-29 21:00:00 36.39 Roselia [facility] Respiratory rate 2019-04-29 21:00:00 20 /min [facility] Body height 2019-04-29 21:00:[address] [facility] Body weight 2019-04-29 21:00:[address] [facility] BMI 2019-04-29 21:00:00 36.11 kg/m2 [facility] Procedures Procedure Date / Time Performed Performing Clinician Source CBC WITH DIFF 2023-09-27 00:33:00 [facility] 2023-09-25 09:00:00 Xenia Venegas [facility] URINE DRUG (IMMUNOASSAY) - COMPREHENSIVE DRUG SCREEN 2023-09-25 08:17[facility]00 [facility] 2023-09-25 08:05:00 [facility] HEPATITIS B SURFACE ANTIGEN 2023-09-25 08:05:00 Anthony [facility] HB ABO GROUPING 2023-09-25 08:05:00 [facility] IMMUNE GLOBULIN 2023-09-25 08:05:00 Anthony [facility] ADC OR BRIDGER ONLY - RPR 2023-09-25 08:05:00 Cruz [facility] HIV 1/2 AG-AB WITH REFLEX 2023-09-25 08:05:00 Cruz [facility] URINE DRUG (IMMUNOASSAY) - COMPREHENSIVE DRUG SCREEN 2023-09-18 22:29:00 Anthony [facility] POCT URINALYSIS W/O SPECIFIC GRAVITY 2023-09-18 00:00:00 Anthony [facility] ASSIGNMENT OF BENEFITS 2023-09-16 10:25:05 Docto r Unassigned, [place] [facility] CONSENT/REFUSAL FOR DIAGNOSIS AND TREATMENT 2023-09-16 10:23:26 Doctor Unassigned, [place] [facility] CBC WITH DIFF 2023-09-16 09:30:00 Jordan Wilkinson [facility] COMP. METABOLIC PANEL (05655) 2023-09-16 08:49:00 Ariela Wilkinson [facility] >14 WEEKS US LIMITED 2023-09-11 22:52:27 Kory Cruz [facility] POCT URINALYSIS W/O SPECIFIC GRAVITY 2023-09-11 00:00:00 Kory Cruz [facility] ADC ONLY - FERN TEST 2023-09-08 02:41:00 Mary Avina [facility] POCT URINALYSIS W/O SPECIFIC GRAVITY 2023-08-28 00:00:00 Kory Cruz [facility] SECOND AND THIRD TRIMESTER ULTRASOUND 2023-08-22 19:52:00 Krystal Low [facility] POCT GLUCOSE (AUTOMATED) 2023-08-22 01:43:00 Eloy Chavez [facility] TRANSTHORACIC ECHO (TTE) COMPLETE 2023-08-21 14:54:52 Brian Jacobs [facility] HB ECG ROUTINE & RHYTHM STRIP 2023-08-21 14:04:01 Reynaldo [facility] THYROID STIMULATING HORMONE 2023-08-21 13:21:00 Mayra Welch [facility] BASIC METABOLIC PANEL (NA, K, CL, CO2, GLUCOSE, BUN, CREATININE, CA) 2023-08-21 13:21:00 Mayra Welch [facility] GLYCOSYLATED HEMOGLOBIN (A1C) 2023-08-21 13:21:00 Tito Pedersen [facility] RUBELLA SCREEN IGG 2023-08-21 13:21:00 Tito Pedersen [facility] VZV ANTIBODY SCREEN 2023-08-21 13:21:00 [facility] SURFACE ANTIGEN 2023-08-21 13:21:00 Tito Pedersen [facility] HB ABO GROUPING 2023-08-21 13:21:00 Tito Pedersen [facility] HIV 1/2 AG-AB WITH REFLEX 2023-08-21 13:21:00 Tito Pedersen [facility] SYPHILIS IGG/IGM 2023-08-21 13:21:[address] [facility] PROTHROMBIN TIME / INR 2023-08-21 01:40:00 Kory Cruz am [facility] ACTIVATED PARTIAL THRMPLAS BLANCA 2023-08-21 01:40:00 Kory Cruz [facility] URINE CULTURE 2023-08-21 01:31:00 Kory Cruz [facility] URINALYSIS 2023-08-21 01:16:00 Kory Cruz [facility] ADC CLC OR LCC ONLY - WET PREP 2023-08-21 01:16:00 Kory Cruz [facility] GROUP B STREPTOCOCCUS BY PCR 2023-08-21 01:16:00 Kory Cruz [facility] CBC WITH DIFF 2023-08-21 01:15:00 Kory Cruz [facility] URINE DRUG (IMMUNOASSAY) - COMPREHENSIVE DRUG SCREEN 2023-08-21 01:14:00 Kory Cruz [facility] HB ABO GROUPING 2023-08-21 01:14:[address] [facility] GC & CHLAMYDIA AMPLIFIED ASSAY 2023-08-21 01:13:00 Kory Cruz [facility] US BIOPHYSICAL PROFILE 2023-08-20 23:58:11 Kory Cruz [facility] US PELVIS > 14 WEEKS 2023-08-20 23:57:55 Kory Cruz [facility] XR SHOULDER 2+ VW LEFT 2023-08-20 21:31:00 Selwyn Quintero [facility] HOSPITAL ADMISSION 2023-08-20 06:01:00 Doctor Un assigned, [place] [facility] TDAP VACCINE, >11 YRS, IM 2023-08-04 19:02:35 Kory Cruz [facility] FLU VACC (), 6 MO-64 YRS, .5ML, IM, QUAD (FLUCELVAX) 2023-08-04 19:02:35 Kory Cruz [facility] POCT URINALYSIS W/O SPECIFIC GRAVITY 2023-08-04 00:00:00 Kory Cruz [facility] URINE DRUG (IMMUNOASSAY) - COMPREHENSIVE DRUG SCREEN 2023-07-29 09:49:00 Jaja [facility] URINALYSIS 2023-07-29 09:49:00 Irlanda Wilkinsonsol [facility] US PELVIS > 14 WEEKS 2023-06-14 20:12:00 Kory Cruz [facility] URINALYSIS 2023-06-14 18:55:00 Kory Cruz [facility] ADC ONLY - FERN TEST 2023-06-14 18:55:00 Kory Cruz [facility] ASSIGNMENT OF BENEFITS 2023-06-14 17:37:47 Docto r Unassigned, [place] [facility] CONSENT/REFUSAL FOR DIAGNOSIS AND TREATMENT 2023-06-14 17:36:34 Doctor Unassigned, [place] [facility] SECOND AND THIRD TRIMESTER ULTRASOUND 2023-05-28 21:05:00 Krystal Low [facility] SECOND AND THIRD TRIMESTER ULTRASOUND 2023-05-28 20:25:00 Krystal Low [facility] URINE DRUG (IMMUNOASSAY) - COMPREHENSIVE DRUG SCREEN 2023-04-18 18:48:00 Jaja [facility] ADC CLC OR LCC ONLY - WET PREP 2023-04-18 18:48:00 Jaja [facility] CONSENT/REFUSAL FOR DIAGNOSIS AND TREATMENT 2023-04-18 16:42:47 Doctor Unassigned, [place] [facility] POCT URINALYSIS 2023-04-02 13:44:00 Krystal Low [facility] EXTERNAL PROVIDER RECORDS 2023-03-21 05:01:00 Doctor Unassigned, [place] [facility] POCT URINALYSIS 2023-03-11 18:00:00 Krystal Low [facility] AUTHORIZATION FOR RELEASE OF PHI 2023-03-11 05:01:00 Doctor Unassigned, [place] [facility] POCT URINALYSIS W/O SPECIFIC GRAVITY 2023-02-11 18:03:00 Krystal Low [facility] POCT TEST 2023-02-11 18:02:00 Rhona Low [facility] REPORT OF 2023-02-11 05:01:00 Doctor Kiran harper, [place] [facility] LIPASE 2022-01-17 03:09:00 Yvonne Siddiqi [facility] COMP. METABOLIC PANEL (35484) 2022-01-17 03:09:00 Yvonne Siddiqi [facility] CBC WITH DIFF 2022-01-17 03:09:[address] [facility] POCT TEST 2022-01-17 02:14:00 Lakhwinder Weiner [facility] URINALYSIS 2022-01-17 02:10:00 [facility] NOTICE OF PRIVACY PRACTICES 2022-01-17 01:36:28 Doctor Unassigned, [place] [facility] CONSENT/REFUSAL FOR DIAGNOSIS AND TREATMENT 2022-01-17 01:36:18 Doctor Unassigned, [place] [facility] TDAP (ADACEL) IMMUNIZATION 2019-05-27 20:41:37 Josy Chaudhary [facility] US ABDOMEN LIMITED 2019-05-17 22:45:16 Josy Chaudhary [facility] ASSIGNMENT OF BENEFITS 2019-05-17 22:12:10 Docto r Unassigned, [place] [facility] URINALYSIS 2019-05-04 18:55:00 Kory Cruz [facility] ADC CLC OR LCC ONLY - WET PREP 2019-05-04 18:55:00 Kory Cruz [facility] ADC ONLY - FERN TEST 2019-05-04 18:54:00 Kory Cruz [facility] CONSENT/REFUSAL FOR DIAGNOSIS AND TREATMENT 2019-05-04 17:47:16 Doctor Unassigned, [place] [facility] Encounters Start Date/Time End Date/Time Encounter Type Admission Type Attending Clinicians Care Facility Care Department Encounter ID Source 2023-09-16 06:18:56 Outpatient X [facility] [id number] [facility] 2023-07-29 06:14:02 Outpatient X [facility] [id number] [facility] 2023-04-18 17:24:48 Outpatient X [facility] [id number] [facility] 2022-08-02 05:16:57 Emergency HFD HFD [id number] [facility] ent 2021-07-08 14:21:14 Outpatient [facility] [id number] [facility] 2023-09-16 00:00:00 2024-03-09 02:05:43 Mobile Device Encounter NicholeMulujuliette mecca Olamide [facility] 1..840.114 350.1.13.10 4.2.7.2.686 [id number] [facility] 2024-01-05 09:02:36 2024-01-05 09:02:36 Outpatient [facility] [id number] Mann Ang Alon 2024-01-02 14:31:28 2024-01-02 14:31:28 Outpatient [facility] [id number] Mann Sav Chi 2023-11-28 00:00:00 2023-11-28 00:00:00 Patient Secure Msg Doctor Unassigned, [place] [facility] 1.2.840.114 350.1.13.10 4.2.7.2.686 [id number] 134 [id number] [facility] 2023-11-21 00:00:00 2023-11-21 00:00:00 Telephone Kory Cruz [facility] 1.2.840.114 350.1.13.10 4.2.7.2.686 [id number] 134 [id number] [facility] 2023-11-15 00:00:00 2023-11-15 00:00:00 Telephone Kory Cruz [facility] 1.2.840.114 350.1.13.10 4.2.7.2.686 [id number] 134 [id number] [facility] 2023-10-10 10:30:00 2023-10-10 12:02:47 Outpatient R CRUZ KORY [facility] [id number] [facility] 2023-10-10 10:30:00 2023-10-10 12:02:47 Routine Visit Raisa Cruzhadley Vasquez [facility] 1.2.840.114 350.1.13.10 4.2.7.2.686 [id number] 134 [id number] [facility] 2023-10-10 00:00:00 2023-10-10 00:00:00 Patient Secure Msg Doctor Unassigned, [place] [facility] 1.2.840.114 350.1.13.10 4.2.7.2.686 [id number] 134 [id number] [facility] 2023-10-09 00:00:00 2023-10-09 00:00:00 Telephone Kory Cruz [facility] 1.2.840.114 350.1.13.10 4.2.7.2.686 [id number] 134 [id number] [facility] 2023-10-09 00:00:00 2023-10-09 00:00:00 Patient Secure Msg Doctor Unassigned, [place] [facility] 1.2.840.114 350.1.13.10 4.2.7.2.686 [id number] 134 [id number] [facility] 2023-09-25 01:05:00 2023-09-27 12:55:00 Inpatient X KORY CRUZ [facility] [id number] [facility] 2023-09-25 01:05:00 2023-09-27 12:55:00 Hospital Encounter Kory Cruz [facility] 1.2.840.114 350.1.13.10 4.2.7.2.686 [id number] [facility] 2023-09-25 16:00:00 2023-09-25 16:00:00 Outpatient R KORY CRUZ [facility] [id number] [facility] 2023-09-25 03:00:00 2023-09-25 08:52:00 Anesthesia Event Xenia Angel Michelle [facility] 1.2.840.114 350.1.13.10 4.2.7.2.686 [id number] [facility] 2023-09-24 00:00:00 2023-09-24 00:00:00 Telephone Kory Cruz [facility] N[facility]ILD[facility] 1.2.840.114 350.1.13.10 4.2.7.2.686 [id number] 134 [id number] [facility] 2023-09-19 00:10:00 2023-09-19 00:10:00 Outpatient P CANO-EVER S, ARIELA CANO-EVER S, ARIELA [facility] [id number] [facility] 2023-09-18 15:15:00 2023-09-18 16:21:53 Outpatient R KORY CRUZ [facility] [id number] [facility] 2023-09-18 15:15:00 2023-09-18 16:21:53 Routine Visit Kory Cruz [facility] 1.2.840.114 350.1.13.10 4.2.7.2.686 [id number] 134 [id number] [facility] 2023-09-16 01:28:00 2023-09-16 03:45:00 Outpatient X CANO-EVER S, ARIELA CANO-EVER S, ARIELA [facility] [id number] [facility] 2023-09-16 01:28:00 2023-09-16 03:45:00 Emergency Cano-Ever s, Ariela [facility] 1.2.840.114 350.1.13.10 4.2.7.2.686 [id number] [facility] 2023-09-11 16:15:00 2023-09-11 16:50:18 Outpatient R ANTHONY KORY [facility] [id number] [facility] 2023-09-11 16:15:00 2023-09-11 16:50:18 Routine Visit Kory Cruz [facility] NAL [facility]ILDING 1.2.840.114 350.1.13.10 4.2.7.2.686 [id number] 134 [id number] [facility] 2023-09-11 14:45:00 2023-09-11 15:00:00 Direct Marketing Manager Visit 2, Adc Lab Kory Cruz [facility] 1.2.840.114 350.1.13.10 4.2.7.2.686 [id number] [facility] 2023-09-11 11:00:00 2023-09-11 11:00:00 Outpatient R KORY CRUZ [facility] [id number] [facility] 2023-09-09 16:00:00 2023-09-09 16:00:00 Outpatient R ANTHONY [facility] [id number] [facility] 2023-09-08 00:00:00 2023-09-08 00:00:00 Telephone Kory Cruz [facility] NAL BUILDING 1.2.840.114 350.1.13.10 4.2.7.2.686 [id number] 134 [id number] [facility] 2023-09-07 20:22:00 2023-09-07 22:06:00 Outpatient X ADMARY PADILLA [facility] [id number] [facility] 2023-09-07 20:22:00 2023-09-07 22:06:00 Emergency AdumMary [facility] 1.2840.114 350.1.13.10 4.2.7.2.686 [id number] [facility] 2023-09-03 15:18:00 2023-09-03 17:33:00 Outpatient X KORY CRUZ [facility] [id number] [facility] 2023-09-03 15:18:00 2023-09-03 17:33:00 Emergency Kory Cruz [facility] 1.2840.114 350.1.13.10 4.2.7.2.686 [id number] [facility] 2023-09-02 14:23:00 2023-09-02 15:18:00 Outpatient P ADUM, MARY [facility] [id number] [facility] 2023-09-02 14:23:00 2023-09-02 15:18:00 Hospital Encounter Adum, Mary Masters [facility] 1.2840.114 350.1.13.10 4.2.7.2.686 [id number] [facility] 2023-08-28 10:45:00 2023-08-28 11:28:38 Outpatient R KORY CRUZ [facility] [id number] [facility] 2023-08-28 10:45:00 2023-08-28 11:28:38 Routine Visit Kory Cruz [facility] 1.2840.114 350.1.13.10 4.2.7.2.686 [id number] [facility] 2023-08-20 15:22:00 2023-08-22 16:30:00 Outpatient X ELOY CHAVEZ [facility] [id number] [facility] 2023-08-20 15:22:00 2023-08-22 16:30:00 Emergency Quintero, Nacho Cruz, Kory Chung, Kristal Mattie Chavez, Eloy Ramires [facility] 1.0.114 350.1.13.10 4.2.7.2.686 [id number] 135 [id number] [facility] 2023-08-22 13:00:00 2023-08-22 13:54:45 Direct Marketing Manager Visit 2, [facility]Kristal Shannon [facility] 1..114 350.1.13.10 4.2.7.2.686 [id number] [facility] 2023-08-21 20:00:01 2023-08-21 20:00:01 Anesthesia Event Xenia Angel [facility] 1..114 350.1.13.10 4.2.7.2.686 [id number] [facility] 2023-08-18 14:15:00 2023-08-18 14:15:00 Outpatient KORY HORVATH [facility] [id number] [facility] 2023-08-08 13:45:00 2023-08-08 13:45:00 Outpatient R [facility] [id number] [facility] 2023-08-06 00:00:00 2023-08-06 00:00:00 Patient Secure Msg Doctor Unassigned, [place] [facility] 1..114 350.1.13.10 4.2.7.2.686 [id number] [facility] 2023-08-04 10:00:00 2023-08-04 11:00:40 Outpatient KORY HORVATH [facility] [id number] [facility] 2023-08-04 10:00:00 2023-08-04 11:00:40 Initial Visit Kory Cruz [facility] 1.2.114 350.1.13.10 4.2.7.2.686 [id number] [facility] 2023-07-29 03:10:00 2023-07-29 06:05:00 Outpatient X CANO-EVER S, ARIELA CANO-EVER S, ARIELA [facility] [id number] [facility] 2023-07-29 03:10:00 2023-07-29 06:05:00 Emergency Cano-Ever s, [facility] 1.20.114 350.1.13.10 4.2.7.2.686 [id number] [id number] [facility] 2023-07-27 00:00:00 2023-07-27 00:00:00 Nurse Triage Nurse, Suyapa Billings [facility] 1..114 350.1.13.10 4.2.7.2.686 [id number] [facility] 2023-06-21 00:00:00 2023-06-21 00:00:00 Krystal Ortega [facility] ASSOCIATE SOFTWARE DEVELOPER [facility] 1.2.114 350.1.13.10 4.2.7.2.686 [id number] [facility] 2023-06-14 12:51:00 2023-06-14 15:30:00 Outpatient X KORY CRUZ [facility] [id number] [facility] 2023-06-14 12:51:00 2023-06-14 15:30:00 Emergency Kory Cruz [facility] 1.2.114 350.1.13.10 4.2.7.2.686 [id number] [id number] [facility] 2023-06-14 00:00:00 2023-06-14 00:00:00 Nurse Triage Heidi Christianson [facility] 1.2.840.114 350.1.13.10 4.2.7.2.686 [id number] [facility] 2023-06-14 00:00:00 2023-06-14 00:00:00 Orders Only Doctor Unassigned, [place] [facility] 1.2840.114 350.1.13.10 4.2.7.2.686 [id number] [facility] 2023-06-03 00:00:00 2023-06-03 00:00:00 Telephone Huy Mendoza [facility] ASSOCIATE SOFTWARE DEVELOPER [facility] & CHILD [facility] 1.840.114 350.1.13.10 4.2.7.2.686 [id number] [facility] 2023-06-02 15:30:00 2023-06-02 15:30:00 Outpatient R HUY MENDOZA [facility] [id number] [facility] 2023-05-30 00:00:00 2023-05-30 00:00:00 Case Management Krystal Low [facility] ASSOCIATE SOFTWARE DEVELOPER [facility] & CHILD [facility] 1.840.114 350.1.13.10 4.2.7.2.686 [id number] [facility] 2023-05-28 14:00:00 2023-05-28 15:19:04 Outpatient P SHELLEY SANCHEZ [facility] [id number] [facility] 2023-05-28 14:00:00 2023-05-28 15:19:04 Direct Marketing Manager Visit Ultrasound, [facility] Shelley Sanhcez [facility] ASSOCIATE SOFTWARE DEVELOPER [facility] CHILD [facility] 1.2.840.114 350.1.13.10 4.2.7.2.686 [id number] [facility] 2023-05-21 00:00:00 2023-05-21 00:00:00 [facility] DEVEL[facility] CHILD [facility] 1.2.840.114 350.1.13.10 4.2.7.2.686 [id number] [facility] 2023-05-21 00:00:00 2023-05-21 00:00:00 Krystal Coffey [facility] ASSOCIATE SOFTWARE DEVELOPER [facility] & CHILD [facility] 1.2.840.114 350.1.13.10 4.2.7.2.686 [id number] [facility] 2023-05-20 15:30:00 2023-05-20 15:30:00 Outpatient HUY FRIAS [facility] [id number] [facility] 2023-05-16 09:45:00 2023-05-16 09:45:00 Outpatient KRYSTAL ROJAS [facility] [id number] [facility] 2023-05-03 17:42:00 2023-05-03 18:57:00 Outpatient X CANO-EVER S, ARIELA CANO-EVER S, ARIELA [facility] [id number] [facility] 2023-05-03 17:42:00 2023-05-03 18:57:00 Emergency Cano-Ever s, Ariela [facility] 1..840.114 350.1.13.10 4.2.7.2.686 [id number] [facility] 2023-04-30 10:45:00 2023-04-30 10:45:00 Outpatient KRYSTAL ROJAS [facility] [id number] [facility] 2023-04-18 12:18:00 2023-04-18 16:05:00 Outpatient X CANO-EVER S, ARIELA JEROME-EVER S, ARIELA [facility] [id number] [facility] 2023-04-18 12:18:00 2023-04-18 16:05:00 Emergency Jerome-Ever sIrlandaAriela [facility] 1.2.840.114 350.1.13.10 4.2.7.2.686 [id number] [facility] 2023-04-17 00:00:00 2023-04-17 00:00:00 Telephone Krystal Low [facility] ASSOCIATE SOFTWARE DEVELOPER [facility]NAL [facility] CHILD [facility] 1.2.840.114 350.1.13.10 4.2.7.2.686 [id number] [facility] 2023-04-17 00:00:00 2023-04-17 00:00:00 Patient Secure Msg Krystal Low [facility] ASSOCIATE SOFTWARE DEVELOPER [facility]NAL & CHILD [facility] 1.2.840.114 350.1.13.10 4.2.7.2.686 [id number] [facility] 2023-04-08 12:45:00 2023-04-08 12:45:00 Outpatient R KRYSTAL LOW [facility] [id number] [facility] 2023-04-07 00:00:00 2023-04-07 00:00:00 Case Management Krystal Low [facility] ASSOCIATE SOFTWARE DEVELOPER [facility]ILD [facility] 1.2.840.114 350.1.13.10 4.2.7.2.686 [id number] [facility] 2023-04-03 10:30:00 2023-04-03 10:30:00 Outpatient R KRYSTAL LOW [facility] [id number] [facility] 2023-04-03 00:00:00 2023-04-03 00:00:00 Refill Krystal Low [facility] ASSOCIATE SOFTWARE DEVELOPER [facility] 1.2.840.114 350.1.13.10 4.2.7.2.686 [id number] [facility] 2023-04-02 08:45:00 2023-04-02 09:15:48 Outpatient R KRYSTAL LOW [facility] [id number] [facility] 2023-04-02 08:45:00 2023-04-02 09:15:48 Routine Visit Krystal Low [facility] ASSOCIATE SOFTWARE DEVELOPER [facility] 1.2840.114 350.1.13.10 4.2.7.2.686 [id number] 107 [id number] [facility] 2023-03-21 00:00:00 2023-03-21 00:00:00 Case Management Krystal Low [facility] ASSOCIATE SOFTWARE DEVELOPER [facility] 1.2.840.114 350.1.13.10 4.2.7.2.686 [id number] [facility] 2023-03-21 00:00:00 2023-03-21 00:00:00 Orders Only Doctor Unassigned, [place] [facility] 1.2840.114 350.1.13.10 4.2.7.2.686 [id number] [facility] 2023-03-19 00:00:00 2023-03-19 00:00:00 Telephone Krystal Low [facility] ASSOCIATE SOFTWARE DEVELOPER [facility] 1.2.840.114 350.1.13.10 4.2.7.2.686 [id number] [facility] 2023-03-11 12:45:00 2023-03-11 13:26:33 Outpatient R KRYSTAL LOW [facility] [id number] [facility] 2023-03-11 12:45:00 2023-03-11 13:26:33 Routine Visit Maranda Krystal Sears [facility] ASSOCIATE SOFTWARE DEVELOPER [facility] 1.2.840.114 350.1.13.10 4.2.7.2.686 [id number] 107 [id number] [facility] 2023-03-11 00:00:00 2023-03-11 00:00:00 Orders Only Doctor Unassigned, [place] [facility] 1.2.840.114 350.1.13.10 4.2.7.2.686 [id number] [facility] 2023-02-18 00:00:00 2023-02-18 00:00:00 Telephone NancyRhona ivorynda Renu [facility] ASSOCIATE SOFTWARE DEVELOPER [facility] 1.2.840.114 350.1.13.10 4.2.7.2.686 [id number] 107 [id number] [facility] 2023-02-14 00:00:00 2023-02-14 00:00:00 Case Management NancyRhona ivorynda Renu [facility] ASSOCIATE SOFTWARE DEVELOPER [facility] 1.2.840.114 350.1.13.10 4.2.7.2.686 [id number] [facility] 2023-02-14 00:00:00 2023-02-14 00:00:00 Telephone NancyRhona ivorynda Renu [facility] ASSOCIATE SOFTWARE DEVELOPER [facility] CHILD [facility] 1.2.840.114 350.1.13.10 4.2.7.2.686 [id number] [facility] 2023-02-11 13:00:00 2023-02-11 14:23:32 Initial Visit Krystal Low [facility] ASSOCIATE SOFTWARE DEVELOPER [facility] & CHILD [facility] 1.2.840.114 350.1.13.10 4.2.7.2.686 [id number] [facility] 2023-02-11 12:30:00 2023-02-11 13:21:27 Outpatient R KRYSTAL LOW [facility] [id number] [facility] 2023-02-11 00:00:00 2023-02-11 00:00:00 Orders Only Doctor Unassigned, [place] [facility] 1.2840.114 350.1.13.10 4.2.7.2.686 [id number] [facility] 2023-02-10 08:30:00 2023-02-10 08:30:00 Outpatient HUY FRIAS [facility] [id number] [facility] 2022-08-02 04:26:00 2022-08-02 11:34:00 Emergency LEEROY GALLO [address] 2022-01-16 21:05:00 2022-01-17 00:11:00 Emergency X DEVANG YVONNE [facility] ERT [id number] [facility] 2022-01-16 21:05:00 2022-01-17 00:11:00 Emergency Yvonne Siddiqi R [facility] 1.2.840.114 350.1.13.10 4.2.7.2.686 [id number] [facility] 2021-07-25 00:00:00 2021-07-25 00:00:00 Patient Secure Msg Doctor Unassigned, [place] [facility] 1.2.840.114 350.1.13.10 4.2.7.2.686 [id number] [facility] 2021-04-19 13:15:00 2021-04-19 13:15:00 Outpatient HUY FRIAS [facility] [id number] [facility] 2021-02-06 00:00:00 2021-02-06 00:00:00 Case Management Jennifer Belcher 1.2.840.114 350.1.13.10 4.2.7.2.686 [id number] [id number] 2021-02-06 00:00:00 2021-02-06 00:00:00 Case Management Jennifer Belcher 1.2.840.114 350.1.13.10 4.2.7.2.686 [id number] [facility] 2020-12-12 00:00:00 2020-12-12 00:00:00 Patient Outreach Geronimo Broderick Leon [facility] PRIMARY CARE RICARDO 1.2.840.114 350.1.13.10 4.2.7.2.686 [id number] 2020-12-12 00:00:00 2020-12-12 00:00:00 Patient Outreach Geronimo Brodericknanda Quintero [facility] PAVROHAN 1.2840.114 350.1.13.10 4.2.7.2.686 [id number] [facility] 2020-02-28 15:00:00 2020-02-28 15:00:00 Outpatient JOSY ALANIS [facility] [id number] [facility] 2019-12-18 17:30:00 2019-12-18 17:30:00 Outpatient KRISSY MAYFIELD [facility] [id number] [facility] 2019-11-18 14:30:00 2019-11-18 14:30:00 Outpatient JOSY ALANIS [facility] [id number] [facility] 2019-05-27 14:41:30 2019-05-27 15:54:53 Routine Visit Josy Chaudhary [facility] 1.2.840.114 350.1.13.10 4.2.7.2.686 [id number] 2019-05-27 14:41:30 2019-05-27 15:54:53 [facility] 1.2.840.114 350.1.13.10 4.2.7.2.686 [id number] [facility] 2019-05-17 17:15:00 2019-05-17 23:59:00 Hospital Encounter Zaid Josy [facility] 1.2.840.114 350.1.13.10 4.2.7.2.686 [id number] [facility] 2019-05-17 17:21:30 2019-05-17 17:36:30 Direct Marketing Manager Visit 1, Adc Lab Kory Cruz [facility] 1.2.114 350.1.13.10 4.2.7.2.686 [id number] [facility] 2019-05-17 15:55:01 2019-05-17 16:56:25 Office Visit Josy Chaudhary [facility] 1.2840.114 350.1.13.10 4.2.7.2.686 [id number] 2019-05-17 15:55:01 2019-05-17 16:56:25 Office Visit Josy Chaudhary [facility] Building 1.2840.114 350.1.13.10 4.2.7.2.686 [id number] [facility] 2019-05-17 00:00:00 2019-05-17 00:00:00 Orders Only Doctor Unassigned, [place] [facility] 1.2.840.114 350.1.13.10 4.2.7.2.686 [id number] [facility] 2019-05-05 00:00:00 2019-05-05 00:00:00 Telephone Josy Chaudhary [facility] Building 1.2.840.114 350.1.13.10 4.2.7.2.686 [id number] [facility] 2019-05-04 15:07:01 2019-05-04 15:22:01 Direct Marketing Manager Visit 1, Adc Lab Kory Cruz [facility] 1.2.840.114 350.1.13.10 4.2.7.2.686 [id number] [facility] 2019-05-04 12:48:00 2019-05-04 14:57:00 Hospital Encounter Kory Cruz [facility] 1.2.840.114 350.1.13.10 4.2.7.2.686 [id number] [id number] [facility] 2019-05-04 00:00:00 2019-05-04 00:00:00 Telephone Josy Chaudhary [facility] Building 1.2.840.114 350.1.13.10 4.2.7.2.686 [id number] [facility] 2019-05-04 00:00:00 2019-05-04 00:00:00 Orders Only Doctor Unassigned, [place] [facility] 1.2.840.114 350.1.13.10 4.2.7.2.686 [id number] [facility] 2019-04-30 00:00:00 2019-04-30 00:00:00 Case Management Josy Chaudhary [facility] Health Surgical Specialti [facility] 1.2.840.114 350.1.13.10 4.2.7.2.686 [id number] [facility] 2019-04-29 15:40:17 2019-04-29 16:18:51 Routine Visit Kory Cruz [facility] Professio nal Building 1.2.840.114 350.1.13.10 4.2.7.2.686 [id number] [facility] Results Test Description Test Time Test Comments Results Result Co mments Source [facility] IMMUNE [id number] 16:36:33* Test Item Value Reference Range Interpretation Comme nts RHIG CANDIDATE? (test code = 5188) No- see comment Patient is not a candidate for RhIg- Patient is Rh Positive.Performed at [facility] Laboratory Services - [facility] Blood [address] [place] [id number] Free: [phone] No. [phone] [facility] CampusHepatitis B Surface Bkreowo0509-79-19 12:56:12 * Test Item Value Reference Range Interpretation Comme nts HBsAg Semi-Quantitative (fredy t code = 5195-3) 0.10 Negative [facility]HIV 1/2 Ag-Ab with [id number] 09:08:51* Test Item Value Reference Range Interpretation Comme nts HIV Semi-quantitative (test code = 40166-7) 0.18 Negative TIERRA (test code = TIERRA) Non-reactive for HIV-1 antigen and HIV-1/HIV-2 antibodies. ?No laboratory evidence of HIV infection. ?Repeat in 2-4 weeks if acute HIV infection is suspected. [facility] CampusCentral Neuraxial Nhvmo8322-26-05 09:00:00 Xenia Angel MD ? ? 09/25/2023 [...] air and catheter ?Guidance with: landmark technique}Epidural/Spinal Republic and/or Catheter: ?Epidural/Spinal Kit: BBraun ?Needle Type: [...] mastisol then tegaderm and tape. No apparent complications.[facility] CampusType and Screen - ONCE [id number] 08:11:00* Test Item Value Reference Range Interpretation Comme nts ABO & RH (test code = 20) O Positive IAT (test code = 1185) Negative [facility] CampusPO[facility] Urinalysis w/o Specific [id number] 22:26:00* Test Item Value Reference Range Interpretation [...] = 3257) n/a Negative - Negati ve [facility] CampusCom. Metabolic Panel (49263)2023-09-16 10:09:50* Test Item Value Reference Range Interpretation Comme nts NA (test code = 9181297551) 135 mmol/L 135-145 K (test code = 8427705099) 3.6 mmol/L 3.5-5.0 CL (test code = 8867178048) 105 mmol/L 98-108 CO2 TOTAL (test code = 0531655107) 25 mmol/L 23-31 AGAP (test code = 7532543676) 5 2-16 BUN (test code = 4596244434) 4 mg/dL 7-23 L GLUCOSE (test code = 0681942228) 88 mg/dL 70-110 CREATININE (test code = 8269897245) 0.49 mg/dL 0.50-1.04 L TOTAL BILI (test code = 0842230650) 1.1 mg/dL 0.1-1.1 CALCIUM (test code = 3155819304) 8.6 mg/dL 8.6-10.6 T PROTEIN (test code = 4406505872) 6.7 g/dL 6.3-8.2 ALBUMIN (test code = 8313529081) 3.3 g/dL 3.5-5.0 L ALK PHOS (test code = 3754673364) 131 U/L 34-122 H ALTv (test code = 1742-6) 17 U/L 5-35 AST(SGOT) (test code = 7845442900) 25 U/L 13-40 eGFR (test code = 53843-7) 135.2 mL/min/1.73m2 CKD-EPI eGFR (2020). Assuming creatinine has been stable day-to-day for at least three months, the eGFR indicates Category G1 (>= 90 mL/min/1.73 m2) Lab Interpretation (test code = 63033-6) Abnormal [facility] with Prit9628-89-47 09:36:47* Test Item Value Reference Range Interpretation Comme nts WBC (test code = 6690-2) 6.44 See_Comment [Automated messa ge] The system which [...] g/dL 31.6-35.1 L RDW-SD (test code = 68956-5) 47.0 fL 39.0-49.9 RDW-CV (test code = 788-0) 17.6 % 12.0-15.5 H PLT (test code = 777-3) 184 See_Comment [Automated messa ge] The system which generated this result transmitted reference range: 166 - 358 10*3/?L. The reference range was not used to interpret this result as normal/abnormal. MPV (test code = 57420-5) 10.1 fL 9.5-12.9 NRBC/100 WBC (test code = 5746683047) 0.0 See_Comment [Automated me ssage] The system which generated this result transmitted reference range: 0.0 - 10.0 /100 WBCs. The reference range was not used to interpret this result as normal/abnormal. NRBC x10^3 (test code = 7131408605) See_Comment [Automated messa ge] The system which generated this result transmitted reference range: 10*3/?L. The reference range was not used to interpret this result as normal/abnormal. GRAN MAT (NEUT) % (test code = 770-8) 66.7 % IMM GRAN % (test code = 9357264415) 0.80 % LYMPH % (test code = 736-9) 24.1 % MONO % (test code = 5905-5) 6.5 % EOS % (test code = 713-8) 1.6 % BASO % (test code = 706-2) 0.3 % GRAN MAT x10^3(ANC) (test code = 4742704123) 4.30 10*3/uL 1.88-7.09 IMM GRAN x10^3 (test code = 3443825531) 0.05 10*3/uL 0.00-0.06 LYMPH x10^3 (test code = 731-0) 1.55 10*3/uL 1.32-3.29 MONO x10^3 (test code = 742-7) 0.42 10*3/uL 0.33-0.92 EOS x10^3 (test code = 711-2) 0.10 10*3/uL 0.03-0.39 BASO x10^3 (test code = 704-7) 0.01-0.07 Lab Interpretation (test code = 27904-9) Abnormal [facility] Urinalysis w/o Specific Hbehlly8143-25-78 22:18:00* Test Item Value Reference Range Interpretation [...] = 3257) n/a Negative - Negati ve [facility] URINALYSIS W/O SPECIFIC [id number] 17:06:00* Test Item Value Reference Range Interpretation [...] = 3257) n/a Negative - Negati ve [facility] CampusVZV ANTIBODY [id number] 15:22:41* Test Item Value Reference Range Interpretation Comme [facility] VZV IgG antibody (test code = 45216-7) Negative Negative TIERRA (test code = TIERRA) Positive - Indicat es the patient was exposed to VZV through infection or vaccination.Negative - Indicates the patient could be susceptible to VZV infection.Equivocal - A second specimen should be sent for testing. [facility] CampusRUBELLA SCREEN [id number] 15:22:41* Test Item Value Reference Range Interpretation Comme [facility] Rubella screen IgG (test code = 6356828383) Positive Negative TIERRA (test code = TIERRA) Positive - Indicat es the patient was exposed to Rubella through infection or vaccination.Negative - Indicates the patient could be susceptible to Rubella infection.Equivocal - A second specimen should be sent. [facility] CampusSYPHILIS IGG/[id number] 15:21:40* Test Item Value Reference Range Interpretation Comme [facility] Syphilis IgG/IgM (test code = 04091-0) Non-reactive Non-reactive TIERRA (test code = TIERRA) Non-reactive - No serologic evidence of T. pallidum infection. Cannot exclude incubating or early syphilis. Submit a second specimen in 2-4 weeks if syphilis is clinically suspected. Equivocal - Further testing to follow. Reactive - Further testing to follow. Lab Interpretation (test code = 93920-2) Normal [facility] CampusPOCT GLUCOSE (AUTOMATED)2023-08-22 01:48:28* Test Item Value Reference Range Interpretation Comme [facility] POCT GLU (test code = 2387347280) 133 mg/dL 70-110 H Lab Interpretation (test cod e = 36074-4) Abnormal [facility] CampusTransthoracic echo (TTE)2023-08-21 20:30:27* Test Item Value Reference Range Interpretation Comme nts Height (test code = 0170087547) 65 in Weight (test code = 6894076480) 219 lbs Systolic BP (test code = 1192293341) 106 mmHg Diastolic BP (test code = 4246564971) 60 mmHg Heart Rate (test code = 5373063101) 90 bpm LVOT stroke volume (test code = 0468438509) 55.30 cm3 EF(Teich) (test code = 6980323886) 74.90 % LVIDD (test code = 8729697686) 5.20 cm LVIDS (test code = 5326839019) 2.90 cm Left Ventricular End Systolic Volume by Teichholz Method (test code = 1578043) 32.2 mL Left Ventricular End Diastolic Volume by Teichholz Method (test code = 0411574) 128.3 mL IVS (test code = 6340321676) 0.66 cm LVPWD (test code = 8065525446) 1.10 cm LVOT diameter (test code = 3564764582) 1.86 cm LVOT area (test code = 6488031254) 2.70 cm2 FS (test code = 9080842850) 44 % MV Peak E Lakshmi (test code = 2836728541) 97.3 cm/s MV Peak A Lakshmi (test code = 2264667189) 80.6 cm/s E/A ratio (test code = 9108492279) 1.21 ratio E wave decelartion time (test code = 4659741324) 0.19 s MV E/e' septal (test code = 7085580790) 11.6 cm/s LA Volume Index (BP) (test code = 3927380305) 37.1 mL/m2 LA volume (BP) (test code = 0352857528) 76.3 mL LVOT peak lakshmi (test code = 1661456973) 108.4 cm/s LVOT mn grad (test code = 4166302931) 2.5 mmHg BSA (test code = 2611515487) 2.06 m2 LA size (test code = 8176707387) 4.0 cm LAV(MOD-sp2) (test code = 9074983629) 54.20 mL LAV(MOD-sp4) (test code = 4227948570) 82.70 mL Tapse (test code = 4768670302) 2.35 cm AV LVOT peak gradient (test code = 9978791080) 4.7 mmHg LVOT peak VTI (test code = 4093915648) 20.3 cm LV V1 mean (test code = 9242908895) 74.60 cm/s MV Prop V (test code = 5460431106) 70.10 cm/s Ao root diam (test code = 3302591769) 3.60 cm Aortic root (test code = 6355662474) 3.6 cm Ao root annulus (test code = 1331948938) 3.6 cm PW (test code = 8617978070) 1.10 cm 0.6-1.1 EF - 2D (test code = 87743158) 74.90 % Interventricular Septum Diastolic Thickness by 2D (test code = 5863932) 0.66 cm Aortic valve mean velocity (test code = 3200273007) 123.5 cm/s Ao peak lakshmi (test code = 6831288326) 177.8 cm/s Ao VTI (test code = 5686768839) 34.6 cm AV area by cont VTI (test code = 5636688640) 1.6 cm2 AV area peak lakshmi (test code = 4463583373) 1.7 cm2 Ao max PG (test code = 8446053202) 12.60 mm[Hg] AV peak gradient (test code = 4219066603) 12.6 mmHg AV valve area (test code = 5031066698) 1.60 cm2 AV mean gradient (test code = 2569968191) 6.5 mmHg MV mean gradient (test code = 9302258411) 1.45 mmHg MV peak gradient (test code = 3066415201) 3.0 mmHg MV pk lakshmi (test code = 9688845368) 86.1 cm/s MV valve area by continuity eq (test code = 6830158603) 2.70 cm2 MV VTI (test code = 4056808951) 20.5 cm MV V2 mean (test code = 8595598605) 56.30 cm/s Radiology Study observation (narrative) (test code = 03771-8) TIERRA (test code = TIERRA) ?Left?Ventricle: Left ventricle size is normal. Increased wall thickness. There is concentric remodeling. Normal wall motion. Hyperdynamic systolic function with a visually estimated EF of 65 - 70%. Normal diastolic function. ?Right?Ventricle: Right ventricle size is normal. Normal systolic function. TAPSE is 2.35 cm. Roscoe Cuellar, MDCardiovascular Medicine FellowUnLakeside Medical Center VentricleLeft ventricle size is normal. [...] apical, parasternal and subcostal views were obtained. [facility] CampusTHYROID STIMULATING [id number] 17:48:00 * Test Item Value Reference Range Interpretation Comme nts TSH (test code = 7163811932) 0.51 See_Comment [Automated [employer]] The system which generated this result transmitted reference range: 0.45 - 4.70 mIU/L. The reference range was not used to interpret this result as normal/abnormal. Lab Interpretation (test code = 00828-2) Normal [facility] METABOLIC PANEL (NA, K, CL, CO2, GLUCOSE, BUN, CREATININE, CA)2023-08-21 17:14:33* Test Item Value Reference Range Interpretation Comme nts NA (test code = 0483461424) 132 mmol/L 135-145 L K (test code = 0437736294) 4.0 mmol/L 3.5-5.0 CL (test code = 7895086816) 106 mmol/L 98-108 CO2 TOTAL (test code = 9070927221) 17 mmol/L 23-31 L AGAP (test code = 5320318895) 9 2-16 BUN (test code = 1220664262) 5 mg/dL 7-23 L GLUCOSE (test code = 1094573287) 75 mg/dL 70-110 CREATININE (test code = 1502120122) 0.44 mg/dL 0.50-1.04 L CALCIUM (test code = 0023722658) 8.4 mg/dL 8.6-10.6 L eGFR (test code = 60681-0) 138.7 mL/min/1.73m2 CKD-EPI eGFR (2020). Assuming creatinine has been stable day-to-day for at least three months, the eGFR indicates Category G1 (>= 90 mL/min/1.73 m2) Lab Interpretation (test code = 22328-3) Abnormal [facility] CampusHIV 1/2 AG-AB WITH [id number] 15:05:53* Test Item Value Reference Range Interpretation Comme nts HIV Semi-quantitative (test code = 54572-9) 0.11 Negative TIERRA (test code = TIERRA) Non-reactive for HIV-1 antigen and HIV-1/HIV-2 antibodies. ?No laboratory evidence of HIV infection. ?Repeat in 2-4 weeks if acute HIV infection is suspected. [facility] CampusHEPATITIS B SURFACE [id number] 15:01:33 * Test Item Value Reference Range Interpretation Comme nts HBsAg Semi-Quantitative (fredy t code = 5195-3) 0.07 Negative [facility] CampusGLYCOSYLATED HEMOGLOBIN (A1C)2023-08-21 14:26:03* Test Item Value Reference Range Interpretation Comme nts HGB A1C (test code = 4548-4) 5.2 % 4.0-5.7 TIERRA (test code = TIERRA) Reference RangesNormal: <5.7%Prediabetes: 5.7 - 6.4%Diabetes: > 6.5% Lab Interpretation (test code = 75317-5) Normal [facility] CampusType and Screen - ONCE Vssciru8047-23-47 13:34:00* Test Item Value Reference Range Interpretation Comme nts ABO & RH (test code = 20) O POSITIVE IAT (test code = 1185) Negative [facility] CampusProthrombin Time / [id number] 02:05:48* Test Item Value Reference Range Interpretation Comme [facility] PROTIME PATIENT (test code = 5964-2) 13.0 [...] the indications. Lab Interpretation (test code = 86525-1) Normal [facility] CampusaPTT2023-11-30 02:05:48* Test Item Value Reference Range Interpretation Comme [facility] APTT Patient (test code = 3173-2) 27 See_Comment [Automated message] The system which generated this result transmitted reference range: 23 - 38 Seconds. The reference range was not used to interpret this result as normal/abnormal. TIERRA (test code = TIERRA) The [facility] patient population mean normal value for aPTT is 30 seconds. Lab Interpretation (test code = 06185-6) Normal [facility] CampusCBC WITH [id number] 01:28:43* Test Item Value Reference Range Interpretation Comme [facility] WBC (test code = 6690-2) 9.07 See_Comment [...] g/dL 31.6-35.1 L RDW-SD (test code = 46631-1) 45.6 fL 39.0-49.9 RDW-CV (test code = 788-0) 17.0 % 12.0-15.5 H PLT (test code = 777-3) 228 See_Comment [Automated [employer]] The system which generated this result transmitted reference range: 166 - 358 10*3/?L. The reference range was not used to interpret this result as normal/abnormal. MPV (test code = 34976-9) 10.4 fL 9.5-12.9 NRBC/100 WBC (test code = 6254311251) 0.2 See_Comment [Automated [employer]] The system which generated this result transmitted reference range: 0.0 - 10.0 /100 WBCs. The reference range was not used to interpret this result as normal/abnormal. NRBC x10^3 (test code = 6881475520) 0.02 See_Comment [Automated [employer]] The system which generated this result transmitted reference range: 10*3/?L. The reference range was not used to interpret this result as normal/abnormal. GRAN MAT (NEUT) % (test code = 770-8) 75.4 % IMM GRAN % (test code = 3553761909) 0.90 % LYMPH % (test code = 736-9) 17.6 % MONO % (test code = 5905-5) 4.9 % EOS % (test code = 713-8) 0.9 % BASO % (test code = 706-2) 0.3 % GRAN MAT x10^3(ANC) (test code = 8662789705) 6.84 10*3/uL 1.88-7.09 IMM GRAN x10^3 (test code = 1180167014) 0.08 10*3/uL 0.00-0.06 H LYMPH x10^3 (test code = 731-0) 1.60 10*3/uL 1.32-3.29 MONO x10^3 (test code = 742-7) 0.44 10*3/uL 0.33-0.92 EOS x10^3 (test code = 711-2) 0.08 10*3/uL 0.03-0.39 BASO x10^3 (test code = 704-7) 0.03 10*3/uL 0.01-0.07 Lab Interpretation (test code = 64996-5) Abnormal [facility] CampusType and Screen - ONCE Sgsifbo5780-32-52 01:24:00* Test Item Value Reference Range Interpretation Comme nts ABO & RH (test code = 20) O Positive IAT (test code = 1185) Negative [facility] CampusPOVT URINALYSIS W/O SPECIFIC [id number] 16:23:00* Test Item Value Reference Range Interpretation [...] = 3257) n/a Negative - Negati ve [facility] URINALYSIS W SPECIFIC [id number] 13:44:00* Test Item Value Reference Range Interpretation [...] POCT U APPEAR (test code = 3267) [facility] URINALYSIS W SPECIFIC [id number] 18:00:00* Test Item Value Reference Range Interpretation [...] POCT U APPEAR (test code = 3267) [facility] URINALYSIS W/O SPECIFIC [id number] 18:03:00* Test Item Value Reference Range Interpretation [...] = 3257) Trace Negative - Negati ve [facility] [id number] 18:02:00* Test Item Value Reference Range Interpretation Comme nts POCT PREG (test code = 1605) Positive On board controls acceptable with C Line (test code = 3572) Yes POCT PREG LOT # (test code = 6304) POCT PREG TEST DATE ( test code = 3579) [facility]. METABOLIC PANEL (11870)2022-01-17 03:31:19* Test Item Value Reference Range Interpretation Comme nts NA (test code = 5462728377) 139 mmol/L 135-145 K (test code = 1924368016) 4.2 mmol/L 3.5-5.0 CL (test code = 2746151791) 105 mmol/L 98-108 CO2 TOTAL (test code = 9155022725) 23 mmol/L 23-31 AGAP (test code = 2273753781) 2-16 BUN (test code = 9348642864) 9 mg/dL 7-23 GLUCOSE (test code = 0779686595) 94 mg/dL 70-110 CREATININE (test code = 6992574550) 0.61 mg/dL 0.50-1.04 TOTAL BILI (test code = 9921668347) 0.9 mg/dL 0.1-1.1 CALCIUM (test code = 3771922358) 9.4 mg/dL 8.6-10.6 T PROTEIN (test code = 7311770485) 8.3 g/dL 6.3-8.2 H ALBUMIN (test code = 3709034488) 4.7 g/dL 3.5-5.0 ALK PHOS (test code = 8175194598) 87 U/L 34-122 ALTv (test code = 1742-6) 11 U/L 5-35 AST(SGOT) (test code = 4645841811) 19 U/L 13-40 eGFR (test code = 6407911589) mL/min/1.73m2 TIERRA (test code = TIERRA) Association [...] imaging tests). Lab Interpretation (test code = 79866-7) Abnormal [facility] CampusLIPASE2022-04-28 03:31:19* Test Item Value Reference Range Interpretation Comme nts LIPASE (test code = 3210640976) 68 U/L 0-220 Lab Interpretation (test cod e = 33456-8) Normal [facility] WITH [id number] 03:28:58* Test Item Value Reference Range Interpretation Comme nts WBC (test code = 6690-2) See_Comment [[employer]] The system which generated this result transmitted reference range: 4.30 - 11.10 10*3/?L. The reference range was not used to interpret this result as normal/abnormal. RBC (test code = 789-8) See_Comment [[employer]] The system which generated this result transmitted [...] 31.9 g/dL 31.6-35.1 RDW-SD (test code = 10220-8) 43.8 fL 39.0-49.9 RDW-CV (test code = 788-0) 15.2 % 12.0-15.5 PLT (test code = 777-3) See_Comment [Automated messa ge] The system which generated this result transmitted reference range: 166 - 358 10*3/?L. The reference range was not used to interpret this result as normal/abnormal. MPV (test code = 04622-0) 11.3 fL 9.5-12.9 NRBC/100 WBC (test code = 4706377878) See_Comment [Automated me ssage] The system which generated this result transmitted reference range: 0.0 - 10.0 /100 WBCs. The reference range was not used to interpret this result as normal/abnormal. NRBC x10^3 (test code = 2919018455) <0.01 See_Comment [Automated messa ge] The system which generated this result transmitted reference range: 10*3/?L. The reference range was not used to interpret this result as normal/abnormal. GRAN MAT (NEUT) % (test code = 770-8) 71.7 % IMM GRAN % (test code = 3404426419) 0.20 % LYMPH % (test code = 736-9) 22.5 % MONO % (test code = 5905-5) 4.2 % EOS % (test code = 713-8) 0.8 % BASO % (test code = 706-2) 0.6 % GRAN MAT x10^3(ANC) (test code = 0816000602) 6.26 10*3/uL 1.88-7.09 IMM GRAN x10^3 (test code = 7002994304) <0.03 0.00-0.06 LYMPH x10^3 (test code = 731-0) 1.96 10*3/uL 1.32-3.29 MONO x10^3 (test code = 742-7) 0.37 10*3/uL 0.33-0.92 EOS x10^3 (test code = 711-2) 0.07 10*3/uL 0.03-0.39 BASO x10^3 (test code = 704-7) 0.05 10*3/uL 0.01-0.07 Lab Interpretation (test code = 49164-6) [facility]C7296[facility]03 [facility]:14:00* Test Item Value Reference Range Interpretation Comme nts POCT PREG (test code = 1605) negative On board controls acceptable with C Line (test code = 3574) present POCT PREG LOT # (test code = 3575) [id number] POCT PREG TEST DATE ( test code = 3576) 06/21/2023 Lab Interpretation (test cod e = 09573-9) Normal [facility] SOTKIXC9249-74-67 23:14:22 Cholelithiasis with no evidence of acute [...] reviewed this study and agree with theabove report.[facility] 19:31:00* Test Item Value Reference Range Interpretation Comme nts APPEARANCE (test code = 7353901937) Slightly Cloudy Clear A COLOR (test code = 4068466442) Yellow Yellow PH (test code = 5075179912) 4.8-8.0 SP GRAVITY (test code = 3566418013) <=1.005 1.003-1.030 GLU U QUAL (test code = 2662209774) Negative Negative BLOOD (test code = 9517901467) Negative Negative KETONES (test code = 1875371406) Negative Negative PROTEIN (test code = 2887-8) Negative Negative UROBILIN (test code = 6213549927) 0.2 mg/dL See_Comment [Automated message] The system which generated this result transmitted reference range: 0-1.0 mg/dL. The reference range was not used to interpret this result as normal/abnormal. BILIRUBIN (test code = 3414573253) Negative Negative NITRITE (test code = 9893742803) Negative Negative LEUK SUMMER (test code = 6047107705) Large Negative A RBC/HPF (test code = 3476162442) See_Comment [Automated message] The system which generated this result transmitted reference range: 0 - 3 HPF. The reference range was not used to interpret this result as normal/abnormal. WBC/HPF (test code = 0515005659) See_Comment H [Automated message] The system which generated this result transmitted reference range: 0 - 5 HPF. The reference range was not used to interpret this result as normal/abnormal. BACTERIA (test code = 2985470708) Moderate Negative A SQ EPITH (test code = 1311389649) HPF Lab Interpretation (test code = 39299-1) Abnormal [facility] OR [facility] ONLY - WET RRYC4327-33-80 19:28:00* Test Item Value Reference Range Interpretation Comme nts Wet Prep (test code = 9973370606) No Trichomonas vaginalis present [facility] ONLY - FERN QWMS4031-01-50 19:24:00* Test Item Value Reference Range Interpretation Comme nts Fern Test (test code = 3426245195) Negative [facility] History and Physical Notes Date/Time Note Provider Source 2023-09-25 01:42:50 9595-06-90J01:42:50F ormatting of this note is different from the original.TRIAGE HISTORY & PHYSICALIDENTIFYING DATASirehaylee Valdes is 22 year old, /White, 38w6d, female with STEVE 10/03/2023, by Last Menstrual Period.: 1998MRN: [id number] Care Physician: Kory Gonzales COMPLAINTcontractionsHISTORY OF PRESENT ILLNESSSiaz Valdes is a 22 year old female [...] 05/27/18 9w2d2 SAB 01/10/18 7w4d1 SAB 04/24/17 8f8pUCZC MEDICAL HISTORYProblem list:Patient Active Problem ListDiagnosis Date [...] (HEMABATE) injection 250 mcg 250 mcg Intramuscular Y4TJOSJ5O-SN IV infusion 1,000 mL 1,000 mL IV Infusion TITRATEFENTanyl PF (SUBLIMAZE (PF)) injection 100 mcg 100 mcg Slow IV Push G8GNIBzvhxjlry ringers IV infusion 500 mL 500 mL IV Infusion ONCElactated ringers IV infusion 500 mL 500 mL IV Infusion PRN - SEE INSTRUCTIONSlactated ringers IV infusion 500 mL 500 mL IV Infusion PRN - SEE INSTRUCTIONSlidocaine 1% (PF) (XYLOCAINE) injection 0.3 mL 0.3 mL Infiltration PRN - SEE INSTRUCTIONSmethylergonovine (METHERGINE) injection 0.2 mg 0.2 mg Intramuscular H8XPZEufZWFVFZsxN (CYTOTEC) tablet 200 mcg 200 mcg Rectal PRNondansetron (ZOFRAN (PF)) injection 4 mg 4 mg Slow IV Push T0WBAWuhqamdgu (PITOCIN) 30 units in NS 500 mL [...] Vomiting (N/V). 30 tablet 0 Takingprenatal vit 06-jddr-lqnvj-dha (SELECT-OB + DHA) 29 mg iron-1 mg [...] ?C (98.5 ?F)]Temp source: Temporal Artery (09/25 118)Pulse: --Resp: --SpO2: --Height: --Weight: --BMI (calculated): --PHYSICAL EXAMINATIONSGen: alert and oriented, well appearing, no distressCV: RRR, normal S1/S2, no m/r/gResp: normal work of breathing, lungs CTABAbd: gravid, soft, NTTPExt: no calf tenderness or edemaGU: SVE 460/-3 by RNREVIEW OF LABORATORY, PATHOLOGY, AND RADIOLOGY DATALab results:Type & Screen HIV Hep B Syphilis ChlamydiaABO & RHDate Value Ref Range Dltaft3009/11/2023 O Positive FinalNo results found for: "HIVMULTIPLEX" No components found for: "HBSHBSAG" Syphilis IgG/IgMDate Value Ref Range Ghcyuj4008/21/2023 Non-reactive Non-reactive FinalC. trachomatis Nucleic AcidDate Value Ref Range Lpvwoz6809/11/2023 Negative Negative FinalIATDate Value Ref Range Znvcvk4809/11/2023 Negative FinalVaricella Rubella Glucose Group B Strep CBCVZV IgG antibodyDate Value Ref Range Rsaota1208/21/2023 Negative Negative FinalRubella screen IgGDate Value Ref Range Ussmak4608/21/2023 Positive Negative FinalGLUC 1 HRDate Value Ref Range Evfcbb3909/11/2023 95 (L) 120 - 170 mg/dL FinalNo results found for: "CGBS" HGBDate Value Ref Range Dndyyq3309/16/2023 8.0 (L) 11.6 - 15.0 g/dL FinalHCTDate Value Ref Range Deeqcq7709/16/2023 27.4 (L) 35.7 - 45.2 % FinalPLTDate Value Ref Range Hlsewu8809/16/2023 184 166 - 358 10*3/?L FinalActive Hospital [...] or others- Feels safe- Seen by social service agency director on 08/22/2023rug use- UDS positive for alprazolam on multiple UDS this , last one on 09/18/23- Seen by social service agency director on 08/22/2023-UDS sent todayHx of childhood heart murmur- States she was told she has a murmur in childhood and never got evaluated. Reports occasional fluttering in her chest- TTE previously ordered outpatient not completed- denies CP, SOB, or palpitations- EKG NSR- TTE (08/21): normal, EF 65-70%- TSH (08/21): 0.51 (WNL)PVT of Dr. Cruz, please see OB Summary for more detailsEneidan Pedro Cruz MD 09/25/2023 1:46 AM 72223-2Sjjapvu and physical dxfmRV1839-86-23H34:54:15History and physical noteTXT1.2.840.279890.1.13.104.2.7.2.42537 9|[id number] for patient ltst15220-0Kxaprrd and physical noteLNNARRATIVEFormatted C-CDA narrative textUTMBUT - [address] Dx[id number] SWTCFWTTPARTLRSP2830-86-50G38:54:151.2.840 .515330.1.72.3.15|1.2.840.435927.1.13.104. 2.7.2.727879_[id number] [facility] 2023-09-16 03:28:41 2202-73-30O70:28:41F ormatting of this note is different from the original.ANTEPARTUM HISTORY & PHYSICALIDENTIFYING DATASirenianastasiia Valdes is 22 year old, /White, 37w4d, female with STEVE 10/03/2023, by Last Menstrual Period.: 1998MRN: [id number] Care Physician: Krystal Cruzospital Day: 1CHIEF COMPLAINTcontractionsHISTORY OF PRESENT EFITBSU31 year old @37w4d presents via EMS for [...] delivery3 SAB 05/27/18 9w2d2 SAB 01/10/18 7w4d1 [facility] 04/24/17 9s6iMGKC MEDICAL HISTORYProblem list:Patient Active Problem ListDiagnosis Date [...] (TYLENOL) tablet 650 mg 650 mg Oral B0DNMUlnntrllj ringers IV infusion 1,000 mL 1,000 mL [...] Vomiting (N/V). 30 tablet 0 Takingprenatal vit 69-rafs-lwuhz-dha (SELECT-OB + DHA) 29 mg iron-1 mg [...] in the current .Negative screening.DELIVERY PLANvaginalFETAL HEART JQPU909 at first moderate variability now with minimal variabilityToco: 2-3/10 minASSESSMENT AND PLAN22 year old @52h8xYiru acute drup use and now non reactive NST--labs + IVF ordered--Internal medicine consultMarleneisol MD Jaja 10699-1Rllmbwm and physical ncmhNU6102-96-04J34:36:45History and physical noteTXT1.2.840.600287.1.13.104.2.7.2.19372 9|[id number] for patient wtvb71357-7Iyebseg and physical noteLNNARRATIVEFormatted C-CDA narrative text[address] IaidGhukbdsuuOqtcrhmsiWVOE9940740946FQZMPA BUDMMEFSLHGAHATV2977-14-26K73:36:451.2.840 .974548.1.72.3.15|1.2.840.435685.1.13.104. 2.7.2.727879_[id number] [facility] Procedure Notes Date/Time Note Provider Source 2023-09-25 03:40:49 3157-03-91D68:40:49Associated Order(s): Central Neuraxial Block Central Neuraxial BlockDate/Time: 09/25/2023 3:00 AMPerformed by: Xenia Angel, MDAuthorized by: Xenia Angel MDPatient Location: OBEnd [...] rate / toco and NIBPLocation: lumbar (1-5)Lumbar: L2-Q4Xazsnhsl: midlineTechnique: SUJEY air and catheterGuidance with: landmark technique}Epidural/Spinal Republic and/or Catheter:Epidural/Spinal Kit: BBraunNeedle Type: TuohyNeedle Gauge: 17 GNeedle Length: 3.5 in (8.89 cm)Needle Insertion Depth: 7Catheter Type: multiportCatheter Size: 19 GCatheter at Skin Depth: 12Number of Attempts: 2Test Dose: lidocaine 1.5% with epinephrine 1-to-200,000 and negativeDose: 3 ccCatheter Securement Method: Tegaderm, surgical tape and clear occlusive dressingAssessment:Sensory Level: above V06Dwrjc Outcome: successful block, no apparent complications, pain [...] then tegaderm and tape. No apparent complications. 16193-1Wumuhdjohdslum procedure hbskSJ0479-22-39U65:43:36Anesthesio logy procedure noteTXT1.2.840.631325.1.13.104.2.7. 2.994736|[id number] for patient wlnr69870-6Nqqyvgej operation noteLNNARRATIVEFormatted C-CDA narrative textAN-ANESTHESIOLOGY ANESTHESIOLOGISTAN-ANESTHESIOLOGY ANESTHESIOLOGIST[address] [id number] 1LMHEMSOZBMSMJNMTYRHQGQ9126-39-34A2 3:43:361.2.840.232789.1.72.3.15|1.2 .840.280837.1.13.104.2.7.2.727879_1 [id number] AN-ANESTHESIOLOGY ANESTHESIOLOGIST [facility] Notes Date/Time Note Provider Source 2023-12-18 13:26:12 1727-18-95P47:26:12 Name and verified. Pt stated that she was not able to go see psych as she resendiz snot have insurance. Wanted to see if he still has medicaid- sent her to [facility].COLETTE ABBOTT RN 12/18/2023 1:26 PM 53804-8Zaenmjhuy encounter HhgpVL5822-99-87H85:26:53Telephone encounter NoteTXT1.2.840.065936.1.13.104.2.7.2 .033295|[id number] for patient rbpj36600-5UpigONMIXKRWWANXvomanbeh C-CDA narrative sjol009299485Igkxusltu G Cervantes [id number] SAZTBGXMFUBQIJYLMOYWQI4754-60-43A51: 26:531.2.840.191313.1.72.3.15|1.2.84 0.503605.1.13.104.2.7.2.727879_20603 94395 Colette Abbott RN [facility] 2023-11-28 08:59:02 3748-82-09C39:59:02 ATC pt. Straight to . LM on for pt to return call. Mychart message sent.COLETTE ABBOTT RN 11/28/2023 8:59 AM 85548-9Lvsrnmtgi encounter ZhlcKV1827-17-25B45:59:45Telephone encounter NoteTXT1.2.840.633488.1.13.104.2.7.2 .433884|[id number] for patient xpql02567-9MciiOFZJXKMRWNKLovgobuhb C-CDA narrative asih452574606WcjaxgqizColette Abbott RN[id number] ZDKMUAVIJPCKAFMOTXQAGS9478-41-38I22: 59:451.2.840.844046.1.72.3.15|1.2.84 0.455345.1.13.104.2.7.2.727879_20443 91879 Colette Abbott RN [facility] 2023-11-21 14:27:31 1612-61-78L34:27:31 Name and verified. Had to reschedule it for Friday. Woke up sick. Picked up medication from pharmacy and started taking both The Zoloft and Buspirone. She has not felt a change at this time. Advised pt that I will call her on Friday. Verbalized understanding.COLETTE ABBOTT RN 11/21/2023 2:30 PM 90360-3Npjuipsiu encounter HtxyTX2072-76-46L25:30:20Telephone encounter NoteTXT1.2.840.733627.1.13.104.2.7.2 .364407|[id number] for patient hacr41719-3MqeoEVVJFHBCGCFNocaftlnm C-CDA narrative [id number] Abbott RN[address] StreetIqct[id number] UCEHSLCDSUOPQVFFUKFSCJ1117-85-02N67: 30:201.2.840.367939.1.72.3.15|1.2.84 0.235372.1.13.104.2.7.2.727879_20387 89795 Colette Abbott RN [facility] 2023-11-18 09:35:26 8235-44-75P05:35:26 Name and verified. Pt stated that she was incarcerated and was released on 10/30 and had 24 pills left which lasted her 12 days. I advised her that I will call pharmacy and will call her back. Verbalized understanding.Spoke to [facility]- the last fill of the [...] take afterwards. Pt stated that she will excelsior picker both medications as pharmacy.Pt stated that her psychiatry appt is this . I advised her that I will call her on Friday to see how appt went and to see if the provider changed anything. Verbalized understanding.COLETTE ABBOTT RN 11/18/2023 9:39 AM 04485-7Iheewuvtt encounter IokzBZ8932-72-04P00:41:08Telephone encounter NoteTXT1.2.840.639649.1.13.104.2.7.2 .529237|[id number] for patient fosh72945-2XnsuYAIOOMURHSAMwaowfvxz C-CDA narrative [id number] Abbott RN[address] StreetCwlq[id number] KTTULWKPXFIACKJEMUKGFF4397-66-99I57: 41:081.2.840.943222.1.72.3.15|1.2.84 0.755520.1.13.104.2.7.2.727879_20349 42310 Colette Abbott RN [facility] 2023-11-17 14:36:08 3875-75-57L53:36:08 ATC pt. LM on for pt to return call.Mychart message sent.COLETTE ABBOTT RN 11/17/2023 2:37 PM 22946-1Ezchusrih encounter CcxfIL1847-34-60K65:44:28Telephone encounter NoteTXT1.2.840.850907.1.13.104.2.7.2 .724120|5063824947RNJtnhahlft for patient jizs36773-4WjqmQFCWEVTEYNBCsjjnvgzm C-CDA narrative text[id number] HEUWTCSFZSHPKZXKEYSWRW3007-82-50N27: 44:281.2.840.160117.1.72.3.15|1.2.84 0.975778.1.13.104.2.7.2.727879_20342 65377 [facility] 2023-11-17 10:27:16 5273-91-53D85:27:16 Name and verified. Pt stated now it [...] return call.COLETTE ABBOTT RN 11/17/2023 10:39 AM 62554-7Rulutuvuu encounter NytyUZ4372-30-90Y65:40:08Telephone encounter NoteTXT1.2.840.664169.1.13.104.2.7.2 .069620|6258396952OTGgkadmmgl for patient dmfq22021-3FbyqUBRXGDUKDEDBiyzhnpmw C-CDA narrative text[id number] VUBZGHUUOYCXBDPBWCVXBJ0738-44-39K87: 40:081.2.840.602124.1.72.3.15|1.2.84 0.030536.1.13.104.2.7.2.727879_20339 26852 [facility] 2023-11-17 08:59:21 5598-64-56E49:59:21 ATC. Lm on for pt to return call.COLETTE ABBOTT RN 11/17/2023 8:59 AM 92049-3Htwekmgiz encounter CbteCX8129-06-29E57:59:43Telephone encounter NoteTXT1.2.840.228351.1.13.104.2.7.2 .817131|0169934422VWJieiivnuu for patient cqqc26365-1TcuuGVPRJMEHDXYWsnepqahp C-CDA narrative textUT[address] OmwrJ[id number] QQROHPGSWSTAHWTAPXSOMY2663-58-88M58: 59:431.2.840.951145.1.72.3.15|1.2.84 0.343517.1.13.104.2.7.2.727879_20337 39250 [facility] 2023-11-15 12:16:29 0971-80-05F67:16:29 Arina Valdes is a 23 year old femalePt is requesting refill for Buspirone but would like to discuss a higher dosage. Pt asking if appt is needed can it be telehealth because she can not get transportation to [place] at this time.Please call pt back at [phone]. 26772-0Bmrsontaq encounter WssiFZ3549-43-82X08:21:25Telephone encounter NoteTXT1.2.840.447526.1.13.104.2.7.2 .188885|6798939171MLRyyarpise for patient tlnk75381-1DogkXTAODFDDRBJBbrqjiymz C-CDA narrative urql407346672Scmgbnd M [id number] SIZHRMXDKSVVVVKPDYRRDQ3724-70-06I13: 21:251.2.840.349428.1.72.3.15|1.2.84 0.910153.1.13.104.2.7.2.727879_20333 27744 Lori Segura [facility] 2023-10-09 15:59:41 3728-55-24Z91:59:41 Name and verified. Pt stated that she listened to VM. Again emphasized that if there is someone to care for pb shrestha- to Take benadryl 50mg x1 only and go to sleep. Do this around 8-9pm. If worsen, thoughts of self harm or to others or feeling of hopelessness- need to go to ER. Make sure she goes to appt tomorrow. If need to be earlier- she may do so. Verbalized understanding.COLETTE ABBOTT RN 10/09/2023 4:01 PM 46904-9Jprhoauhm encounter YibwVZ3631-64-63S59:02:01Telephone encounter NoteTXT1.2.840.908278.1.13.104.2.7.2 .838735|[id number] for patient celn97176-9YqizESWXKJQEKEPFofealmmt C-CDA narrative luqf766181518YpobwodzoColette Abbott RN[id number] MYUIDZNAGIKVLKOWVRNEGC2764-58-79O38: 02:011.2.840.735186.1.72.3.15|1.2.84 0.188492.1.13.104.2.7.2.727879_ 28118 Colette Abbott RN [facility] 2023-10-09 14:49:39 0064-16-26N21:49:39 Per Pt- hx of anxiety and depression [...] try again.COLETTE ABBOTT RN 10/09/2023 2:53 PM 27728-9Qsyzpusuq encounter OtvpJP5394-20-09Z93:54:19Telephone encounter NoteTXT1.2.840.467308.1.13.104.2.7.2 .682643|8344958041ZOZzerotnqd for patient tsdb85644-9RqtfZYXLEPWRMZDYnqbtvybf C-CDA narrative textUT[address] Vwxb[id number] FCBICMFMAOPWEFCDHCXLLM0380-70-20L16: 54:191.2.840.096219.1.72.3.15|1.2.84 0.952162.1.13.104.2.7.2.727879_ 22545 [facility] 2023-10-09 14:31:55 3077-51-95H07:31:55 Patient states she is having signs of pp depression. She states Dr. Cruz told her to call and she would send in a prescription for her. She is not having a good day today, no thoughts of hurting herself or the baby but feels like nothing is going right today.[id number] - [place], [place] - [address] [place] [address] AT [facility] DRIVEPhone: Zvetfkoezykaph signed by Reyna Avalos at 10/09/2023 2:34 PM CRJ64664-8Fhdyltpvz encounter IvobNE4635-50-00E33:34:17Telephone encounter NoteTXT1.2.840.518403.1.13.104.2.7.2 .490419|[id number] for patient gjjc11692-7OqtoPMYDRAIVQPPHdhdazrsa C-CDA narrative wbht03549893Lwqut S Hernader[address] ZewrP[id number] NBNGOVYOJZPTJOUWRYHIRN6179-51-85L87: 34:171.2.840.020241.1.72.3.15|1.2.84 0.889929.1.13.104.2.7.2.727879_20013 70328 Reyna Connernandez [facility] 2023-09-26 23:31:11 9291-65-46Q33:31:11 Problem: PainGoal: Control of pain at or below patient's documented comfort goalOutcome: Progressing as expectedGoal: Reduction in pain sensationOutcome: Progressing as expectedProblem: Bleeding, Risk ofGoal: Absence of impaired coagulation signs and symptomsOutcome: Progressing as expectedGoal: Absence of active bleedingOutcome: Progressing as expectedProblem: Discharge Planning - PostpartumGoal: Adequate for dischargeOutcome: Progressing as expectedGoal: Mood stableOutcome: Progressing as expected 92536-2Xjmt of care kqheVD2450-59-44Q31:31:16Plan of care noteTXT1.2.840.516257.1.13.104.2.7.2 .193235|[id number] for patient pefs47683-3JebhEDSUOBASRYABgtgifohf C-CDA narrative buhv764951362Nfgwflnm Vela RN[id number] XYDADRZANJBGXXELBXQCIS9166-00-25Q79: 31:161.2.840.659207.1.72.3.15|1.2.84 0.723071.1.13.104.2.7.2.727879_19931 87483 Flaquita Branch RN [facility] 2023-09-26 08:06:29 9997-28-88T34:06:29 Problem: PainGoal: Control of pain at or below patient's documented comfort goalOutcome: Progressing as expectedGoal: Reduction in pain sensationOutcome: Progressing as expectedProblem: Bleeding, Risk ofGoal: Absence of impaired coagulation signs and symptomsOutcome: Progressing as expectedGoal: Absence of active bleedingOutcome: Progressing as expectedProblem: Discharge Planning - PostpartumGoal: Adequate for dischargeOutcome: Progressing as expectedGoal: Mood stableOutcome: Progressing as expected 79543-2Fhgv of care wfcsMG5415-76-67F59:06:48Plan of care noteTXT1.2.840.954861.1.13.104.2.7.2 .268228|0196898817FDLdpfmfsjh for patient llbr26505-3LvxbDKKEZJUWIGMThbgyoasj C-CDA narrative ggaf615212453Qqhusaq E Duarte [id number] UMVALBOJJZDKVULBWLGSFD1969-33-62X94: 06:481.2.840.831985.1.72.3.15|1.2.84 0.540748.1.13.104.2.7.2.727879_19914 81133 Nesha Matta RN [facility] 2023-09-25 19:06:08 5472-14-46O68:06:08 Problem: PainGoal: Control of pain at or below patient's documented comfort goalOutcome: Progressing as expectedGoal: Reduction in pain sensationOutcome: Progressing as expectedProblem: Bleeding, Risk ofGoal: Absence of impaired coagulation signs and symptomsOutcome: Progressing as expectedGoal: Absence of active bleedingOutcome: Progressing as expectedProblem: Discharge Planning - PostpartumGoal: Adequate for dischargeOutcome: Progressing as expectedGoal: Mood stableOutcome: Progressing as expected 43338-1Gger of care yccvTF8468-52-82Q91:06:14Plan of care noteTXT1.2.840.782353.1.13.104.2.7.2 .237791|9295210600ANXbqahdzyz for patient lvcv69409-1QbycBATWVJSPLXGRpqqldhrr C-CDA narrative [id number] Plata RN[id number] PNTQWXSAWQBBOXIKFSXUMN7367-07-04F61: 06:141.2.840.911777.1.72.3.15|1.2.84 0.514341.1.13.104.2.7.2.727879_ 74416 Heidi Plata RN [facility] 2023-09-25 08:54:21 4426-73-73B97:54:21 Patient: Arina Velasquez RamosProcedure SummaryDate: 09/25/23 Room / Location:Anesthesia Start: 0300 Anesthesia Stop: 0852Procedure: CENTRAL NEURAXIAL BLOCK Diagnosis:Scheduled Providers: Responsible Provider: Xenia Angel MDAnesthesia Type: Not recorded ASA Status: 2Anesthesia Type: No value filed.Last sqxbvlGIWydxDpqmlIdloTxK8Ghifn were no known notable events for this [...] No apparent complicationsEaston Piedra MD 09/25/2023 08:54 28042-0Bhtgguqpaenlxz Postoperative evaluation and management toljOF5950-77-08Z38:54:34Anesthesiol ogy Postoperative evaluation and management noteTXT1.2.840.846003.1.13.104.2.7.2 .060171|4019906346NVJmiarlifx for patient apvr41390-4Wnyuadlk operation noteLNNARRATIVEFormatted C-CDA narrative textAN-ANESTHESIOLOGY ANESTHESIOLOGISTAN-ANESTHESIOLOGY ANESTHESIOLOGIST[address] Fv[id number] CIIRXFMLKGIEQBPSOVJJPU4574-90-02F88: 54:341.2.840.816971.1.72.3.15|1.2.84 0.732982.1.13.104.2.7.2.727879_19905 [id number] AN-ANESTHESIOLOGY ANESTHESIOLOGIST [facility] 2023-09-25 06:42:27 3214-97-62P11:42:27 Problem: PainGoal: Control of pain at or below patient's documented comfort goalOutcome: Progressing as expectedGoal: Reduction in pain sensationOutcome: Progressing as expectedProblem: Bleeding, Risk ofGoal: Absence of impaired coagulation signs and symptomsOutcome: Progressing as expectedGoal: Absence of active bleedingOutcome: Progressing as expected 04890-6Jifb of care nnmiNY6763-13-82K16:42:28Plan of care noteTXT1.2.840.459586.1.13.104.2.7.2 .147573|[id number] for patient flmb18383-6AqguSYXBMVRLZVDYpguabobx C-CDA narrative [id number] Velazquez RN[address] Levy [id number] DBQHXVOZEPYFMGCSUVSIDC2355-06-26Y25: 42:281.2.840.789692.1.72.3.15|1.2.84 0.055500.1.13.104.2.7.2.727879_19913 [id number] Nikki Velazquez RN [facility] 2023-09-25 06:41:38 4000-24-73X67:41:38 Problem: PainGoal: Control of pain at or below patient's documented comfort goalOutcome: Progressing as expectedGoal: Reduction in pain sensationOutcome: Progressing as expectedProblem: Bleeding, Risk ofGoal: Absence of impaired coagulation signs and symptomsOutcome: Progressing as expectedGoal: Absence of active bleedingOutcome: Progressing as expectedProblem: Intrapartum process (including labor pain)Goal: Absence of or reduction of complications of labor09/25/2023 0641 by Nikki Velazquez RNOutcome: Resolved09/25/2023 0418 by Nikki Velazquez RNOutcome: Progressing as expectedGoal: Able to cope with pain09/25/2023 0641 by Nikki Velazquez, CARLOSOutcome: Resolved09/25/20238 by Nikki Velazquez RNOutcome: Progressing as expectedGoal: Adequate to move to next level of care09/25/2023 0641 by Nikki Velazquez RNOutcome: Resolved09/25/2023417 by Nikki Velazquez RNOutcome: Progressing as expectedGoal: Reduction in pain sensation09/25/2023 06 by Nikki Velazquez RNOutcome: Resolved09/25/2023417 by Nikki Velazquez RNOutcome: Progressing as expected 55988-6Svap of care xjrqFI6259-41-53Q11:41:44Plan of care noteTXT1.2.840.929640.1.13.104.2.7.2 .053330|[id number] for patient fmkh85308-7KdjgPBTCKSCMGJXXawhwkkxk C-CDA narrative text[address] ZumyDw[id number] GKVEOSEQIFWMAUXFXOLKMG7087-80-74N12: 41:441.2.840.399910.1.72.3.15|1.2.84 0.045621.1.13.104.2.7.2.727879_19913 32844 [facility] 2023-09-25 06:08:58 5849-07-05K41:08:58 DELIVERY BY SPONTANEOUS VAGINAL DELIVERYDelivery Date: 09/25/2023 [...] 9Vien Pedro Cruz MD 09/25/2023 6:10 AM 00858-4Bdrhs and delivery summary pflgJV8884-51-00S48:29:51Labor and delivery summary noteTXT1.2.840.993099.1.13.104.2.7.2 .188639|[id number] for patient xfam29465-6UssiAOIXTBREPPRMigdwnhja C-CDA narrative textUTMBUT - [address] StreetAov[id number] BZQRRYSSUSEYQBFRYWHYMF0507-96-21X05: 29:511.2.840.368199.1.72.3.15|1.2.84 0.060821.1.13.104.2.7.2.727879_19903 48643 [facility] 2023-09-25 04:18:18 5808-05-81O92:18:18 Problem: Intrapartum process (including labor pain)Goal: Absence [...] Absence of active bleedingOutcome: Progressing as expected 74666-7Mbby of care sqanVX0585-40-04F52:18:21Plan of care noteTXT1.2.840.674816.1.13.104.2.7.2 .446646|[id number] for patient tigr35172-3IxqnLLRQMUAUXSJYumrodqur C-CDA narrative textUT[address] Jhb[id number] BGCAAYWIZFUXHHIDZLOXFD3479-98-69R89: 18:211.2.840.543558.1.72.3.15|1.2.84 0.432521.1.13.104.2.7.2.727879_19903 79087 [facility] 2023-09-25 03:37:05 4231-15-19O61:37:05 Name/ MRN / Age / Gender:Arina Valdes, [id number] year old femaleBMI:Estimated body mass index is [...] not found *Procedure: CENTRAL NEURAXIAL BLOCKOR Location: [facility] OUT OF OR - OR LOCATIONAnesthesia Preop Eval (physical exam)Anesthesia Preop: Pqpu-rw-TwwgCTSG Risk Factors: femaleAnesthesia HistoryAnesthesia History Negative(-) Hx [...] prior to surgery. Hold on DOS.Phentermine: Alert APAC anesthesiologistSGLT2 Inhibitors: "gliflozins" to be held for [...] LDRAdditional comments: Date Anesthesia Start: 09/25/2023Labor Room: [address] [place] [address] Ron Valdes is a 22 year old [...] and desires to proceed with the epidural. 50106-5Sizjxslweejoxp Preoperative evaluation and management vkqsWN5428-43-55U28:38:52Anesthesiol ogy Preoperative evaluation and management noteTXT1.2.840.577650.1.13.104.2.7.2 .018689|[id number] for patient otdf10932-3Hbbtpjkl operation noteLNNARRATIVEFormatted C-CDA narrative text[id number] MOOEMIPKDVAEDXWGTOKJJR9502-07-08A30: 38:521.2.840.881087.1.72.3.15|1.2.84 0.822451.1.13.104.2.7.2.727879_ 14034 [facility] 2023-09-25 01:15:02 7640-42-51O72:15:02 Pt arriving with complaints of contractions. Pt is 39 weeks , . No rupture of membranes.Report to Radames Ojeda [place] [address]-2Qiezkidyu department YimfJZ7750-58-37E65:15:16Emergen department NoteTXT1.2.840.267812.1.13.104.2.7.2 .369178|[id number] for patient zfah00129-5YrwaTTIXMZSFZHFIuvihrsfp C-CDA narrative [id number] [id number] OGYNICUZGQYYLQWWBJXWSI4809-69-99Z67: 15:161.2.840.776290.1.72.3.15|1.2.84 0.255203.1.13.104.2.7.2.727879_ 66054 Windy Deleon RN [facility] 2023-09-24 07:51:06 4001-25-93G46:51:06 Triage call transferred to mn. Patient identification verified by name and . [...] Cruz notified.Pedro Gomez RN 09/24/2023 7:57 AM 32353-8Gddtrwzga encounter VmqxAF1245-93-28H04:57:46Telephone encounter NoteTXT1.2.840.334198.1.13.104.2.7.2 .225361|[id number] for patient qpxf02682-8KfhhDKDKPOWPMLCMljgakois C-CDA narrative [id number] Collins RN[id number] AQOYDDIRRTMCGBOIZXKCLP2694-14-84C52: 57:461.2.840.022064.1.72.3.15|1.2.84 0.066714.1.13.104.2.7.2.727879_19903 53729 Pedro Gomez RN [facility] 2023-09-24 07:43:24 5048-34-04O87:43:24 Pt calling says she having contractions think she may be in labor they are 5 min apart, having some bloody discharge along with backache. Scheduled for delivery tomorrow has appt today in clinic. 42324-3Gkhiuxcxf encounter DijaEW3965-88-33D12:44:46Telephone encounter NoteTXT1.2.840.115404.1.13.104.2.7.2 .119919|[id number] for patient nxxd08872-4NkqnBNNONKXSMSWMnujnnkky C-CDA narrative [id number] [id number] NQSGBGTEPIGHJEJELXWEGK8703-61-28H86: 44:461.2.840.659845.1.72.3.15|1.2.84 0.443063.1.13.104.2.7.2.727879_19903 12231 Olamide Choi [facility] 2023-09-18 15:15:00 5579-41-75V96:15:00 Age: 22 year oldGA: 74r1cCexddxz asked if she can be induced now [...] moved out of the house-Seen by social service agency director on 08/22/2023rug use- UDS positive for alprazolam [...] cessation of marijuana use- Seen by social service agency director on 08/22/2023- UDS on 08/28/2023 presumptive positive [...] precautions givenFollow-up in 1 week for visit 27231-8Kwrbscvg dfbmEG6082-31-06E87:43:52Progress noteTXT1.2.840.065857.1.13.104.2.7.2 .463937|[id number] for patient qsyc41030-8WlioIVFIOMSRMRZLiifhnlbg C-CDA narrative text[id number] GZULZUAAUHODQEEXNINDXC4596-59-45Z35: 43:521.2.840.749037.1.72.3.15|1.2.84 0.110366.1.13.104.2.7.2.727879_19873 19805 [facility] 2023-09-16 01:27:39 5563-58-62M26:27:39 PT to [facility] via [facility]. EMS report called to LDRP by Tina. 01920-6Wkfqhurrz department Triage ymzjWE5256-50-55G59:28:31Emergency department Triage noteTXT1.2.840.453236.1.13.104.2.7.2 .789253|[id number] for patient whcr46852-9Mndgatgjg department NoteLNNARRATIVEFormatted C-CDA narrative [id number] [id number] XIFBYVINQMZXMIFXGLXXTF3622-92-09Y96: 28:311.2.840.387392.1.72.3.15|1.2.84 0.796702.1.13.104.2.7.2.727879_19853 75879 Tiffany Eden RN [facility] 2023-09-11 16:15:00 6748-97-72S63:15:00 Age: 22 year oldGA: 83w4vThyriio reports doing well without concerns today. Patient [...] moved out of the house-Seen by social service agency director on 08/22/2023rug use- UDS positive for alprazolam on 07/29/23- UDS + for Benzo, cocaine, and THC on 08/20 at [facility]- pt reports she smokes marijuana for relief of n/v and vapes- denies past or current use of IV drugs.- States she "handled bags of cocaine and meth" and thinks that why she "had some in her urine.- Counseled on cessation-Seen by social service agency director on 08/22/2023-UDS on 08/28/2023 presumptive positive for [...] signed todayRTC in 1 [place] [address]-9Uqhtjsbz ybutNF9887-06-24J93:01:32Progress noteTXT1.2.840.869667.1.13.104.2.7.2 .128895|[id number] for patient nray56611-0NndqVSGNDPRBWKKSwdhyxbyx C-CDA narrative textUT[address] CbyuT[id number] CLSAAPZVQCOUJFAXYAQJHP9963-61-75S84: 01:321.2.840.441065.1.72.3.15|1.2.84 0.129658.1.13.104.2.7.2.727879_19837 31228 [facility] 2023-09-11 14:45:00 2554-82-22Y25:45:00 Loaded pt w 50gm glucola, no issues. 57394-8Yiejw DjbaEW6237-33-65L38:46:11Nurse NoteTXT1.2.840.584142.1.13.104.2.7.2 .749391|[id number] for patient azsg26617-0Ftwbt NoteLNNARRATIVEFormatted C-CDA narrative text[id number] SCZRCBFKWSJQSVTALZKPUR5194-87-40N44: 46:111.2.840.960817.1.72.3.15|1.2.84 0.494928.1.13.104.2.7.2.727879_19829 56024 [facility] 2023-09-11 14:45:00 7640-77-87Q21:45:00 Images from the original note were not included.Venipuncture collection performed by clean technique on the left anticubitus. Total of 1 attempts were made. Slight pressure and a bandage/dressing were applied to the site(s). The patient experienced no complications. The following specimens were processed according to instructions and sent to [facility] laboratories per lab order on 09/11/2023:LT BLUESST 3RED 1LAV 2PPTDK GREEN (LiHep)DK GREEN (SodH)GRAYDK BLUE (K2)DK BLUE (S)ACDBlood CultureNIPT/NTD 47652-2Uxuam BioeVT0838-52-01X96:52:52Nurse NoteTXT1.2.840.660737.1.13.104.2.7.2 .100351|[id number] for patient kiau50619-8Srxzc NoteLNNARRATIVEFormatted C-CDA narrative text[id number] ZHSOVYBOYNUUOGAXYLZOSU6594-11-20A16: 52:521.2.840.911678.1.72.3.15|1.2.84 0.134102.1.13.104.2.7.2.727879_19836 58263 [facility] 2023-06-03 09:22:55 1096-60-65Y46:22:55 Pt is lost to f/u. 55112-5Hvfazgscf encounter ZoxiGY9237-95-22O72:23:05Telephone encounter NoteTXT1.2.840.348815.1.13.104.2.7.2 .365281|[id number] for patient zpcn86833-8NdkvPY764251159Aeppxqsp Garcia [id number] IFRUNKNWOISJMRXKKYTFUX1050-98-95J42: 23:051.2.840.720997.1.72.3.15|1.2.84 0.632723.1.13.104.2.7.2.727879_18971 26831 Kaity Dixon LVN [facility] 2023-06-03 09:11:26 2237-21-66M37:11:26 Patient has missed six appointments 04/08/23, 05/16/23, 05/20/23, 05/28/23, and 06/02/23. 24633-0Akxvbszde encounter AmzwWZ4565-58-14G23:12:52Telephone encounter NoteTXT1.2.840.569792.1.13.104.2.7.2 .433427|[id number] for patient ggli18539-5YmevBX22739760Zjkzheg [id number] EWTLFFQUPVKOEBUYLTLUQL3109-20-93F42: 12:521.2.840.692876.1.72.3.15|1.2.84 0.386161.1.13.104.2.7.2.727879_18971 54983 [facility] 09:04:12 6717-68-57B98:04:12 Noted. 40311-4Sjomoxcnp encounter UlqfHR7470-32-30A44:04:22Telephone encounter NoteTXT1.2.840.825039.1.13.104.2.7.2 .718751|[id number] for patient sgjc67816-9ZnjwPK073465356Gqfncbcn Garcia [id number] KLJDDZQRXYAVBWJDAEYAGU0660-08-45I46: 04:221.2.840.858645.1.72.3.15|1.2.84 0.239545.1.13.104.2.7.2.727879_18879 64265 Kaity Dixon LVN [facility] 2023-05-22 08:47:14 7621-17-55X27:47:14 Spoke with pt told prescription is at pharmacy and medications would be discussed at appointment. Please review and close 98668-0Knbykquji encounter DcbyWR8503-37-12H05:48:18Telephone encounter NoteTXT1.2.840.610390.1.13.104.2.7.2 .906520|[id number] for patient lbht18668-3NfjbJO8872438NR [id number] QUZEKTPHMOUJYWTWCSAGNC4315-94-03K68: 48:181.2.840.267782.1.72.3.15|1.2.84 0.963997.1.13.104.2.7.2.727879_18879 86199 JJ [facility] 2023-05-22 07:54:30 9950-36-60B71:54:30 Attempted to call patient, no answer[place]. [address]-4Xavunlqqy encounter IuwrCI6773-04-70W84:54:51Telephone encounter NoteTXT1.2.840.563243.1.13.104.2.7.2 .197027|4822142814BRMmxvhpocg for patient cmae11590-2ZzngFGYHXITOVM[id number] XLNFNOCUAKMMKJLFJXIMRO8385-03-07P06: 54:511.2.840.136117.1.72.3.15|1.2.84 0.650486.1.13.104.2.7.2.727879_18878 69247 [facility] 2023-05-21 16:33:16 3567-46-77E05:33:16 Please call patient and let her know I erx zoloft to the pharmacy. I did not refill promethazine. She has appointment on 05/28 and can be discussed at that time. Any further refills for Zoloft can be discussed at that time as as well. 16832-5Eksugbblt encounter NbwlXK3060-39-11T56:36:02Telephone encounter NoteTXT1.2.840.410523.1.13.104.2.7.2 .588396|9063728304NUJrhknefjv for patient thuo82207-5BfehLMBRPPFWEQ[id number] SEDBLVQXGIIFIVFPMZGEGY8966-63-34X97: 36:021.2.840.958803.1.72.3.15|1.2.84 0.377449.1.13.104.2.7.2.727879_18874 54763 [facility] 2023-05-21 12:49:39 3806-39-97J51:49:39 Called patient and scheduled appointment for 05/28/23. 35919-9Fwodcuwpx encounter QswqYF9449-06-11D19:49:59Telephone encounter NoteTXT1.2.840.410908.1.13.104.2.7.2 .784075|9538513677GNWpdbjghfo for patient hpve81078-1GodnSV72301491Laedhpg [id number] SFTCELXDGSAPWPMWQNVEQZ6180-46-45P73: 49:591.2.840.489036.1.72.3.15|1.2.84 0.309259.1.13.104.2.7.2.727879_18871 74045 Claudia Chavez [facility] 2023-05-03 18:56:21 2023-00-43B33:56:21 Discharge instructions as follows given to patient.Labor [...] brown spotting after a vaginal exam. 2. Silver Star, light red and brownish spotting is not [...] twice, 4 hours apart.Do not take any rvjb-sow-gfuflkg medications for an illness unless you have [...] won t go away, even after taking gvpe-bus-hmzueti medicines as instructed by your care provider.Changes in vision, including blurry vision, a sensation of flashing lights or spots, or temporary loss of vision.Severe pain or tenderness in your upper stomach area. This may include nausea and vomiting. 32318-4Zhztm ElqeGH9182-11-73B87:57:13Nurse NoteTXT1.2.840.455724.1.13.104.2.7.2 .539306|[id number] for patient jyvm39237-8DluoBR719784762Iewhk A Black RNUTMBPRESBYTERIAN SANTA FE MED[facility] - [address] Hbw[id number] IETLCORMMPHRGCIJEEBEFE0464-18-98Y03: 57:131.2.840.313961.1.72.3.15|1.2.84 0.067365.1.13.104.2.7.2.727879_18729 57814 Carmen Reyes RN [facility] 2023-05-03 17:44:55 8213-06-06H16:44:55 Patient to ED via [facility] for cramping and spotting. Patient is 18 weeks . . Seen at [facility]. Patient triaged and take to L&D. Report called to July GONZALEZ. 31067-2Bgzgafamd department Triage bdxxQC6154-32-42A29:45:52[facility] department Triage noteTXT1.2.840.474192.1.13.104.2.7.2 .217549|[id number] for patient lrcx26923-7Oexdonzep department PwgiCE820510851Jygckts Darlene Dutton RNUT[id number] LOWNAOQHULRJGKFNCNOSTD6125-41-45K65: 45:521.2.840.050854.1.72.3.15|1.2.84 0.301528.1.13.104.2.7.2.727879_18729 02506 Zach Dutton RN [facility] 2023-04-18 12:11:31 0947-87-14X72:11:31 Pt started on zoloft one week ago. States since then she has felt fatigued and nauseous. Silver Star spotting with cramping x2 days. LMP 4-7-23, currently 16w 0d . Goes to [facility] clinic. Report given to CARLOS Hernandez. 33509-2Srsgetste department Triage efvbCU4718-74-90S61:18:23[facility] Triage noteTXT1.2.840.419321.1.13.104.2.7.2 .590448|7780150014JROjpunnfmq for patient gbvh048117766Mbrenup Fief CARLOS[id number] VTKATJXPJVPMPAUBHVYFCL1867-16-78U43: 18:231.2.840.796236.1.72.3.15|1.2.84 0.808647.1.13.104.2.7.2.727879_18612 96356 Bonnie Michael RN [facility] 2023-04-17 14:27:19 3574-83-62J15:27:19 Pt states she is having severe side [...] recommendations. DENI CHOI RN 04/17/2023 2:34 PM 23424-1Vexzxxhns encounter VorzOK5431-18-91Y44:35:13Telephone encounter NoteTXT1.2.840.398244.1.13.104.2.7.2 .544532|[id number] for patient nglm978813664Baiipc Rodriguez RN[address] [id number] JQNUFPOPODDNWRMHVUARIJ7603-87-78X11: 35:131.2.840.441260.1.72.3.15|1.2.84 0.380218.1.13.104.2.7.2.727879_18603 73994 Deni Choi RN [facility] 2023-04-17 14:14:18 5733-77-94N68:14:18 Pt is requesting call back, states she is having bad side effects from anti-depressant. Please call [phone] (home) 11338-0Koybnlemr encounter CissED1677-03-48R06:16:20Telephone encounter NoteTXT1.2.840.029992.1.13.104.2.7.2 .490640|[id number] for patient phnf9685399RH Allen[address] Vv[id number] CWQTSJGHVGCJADVXFNIAZT0201-36-61G37: 16:201.2.840.947133.1.72.3.15|1.2.84 0.443049.1.13.104.2.7.2.727879_18603 03597 NICOLAS Flores [facility]
--- NOTE | 2024-03-18 13:23 | ER ---
Nurse's Notes [facility] Name: Arina Valdes Age: 23 yrs Sex: Female : 2000 Arrival Date: 03/18/2024 Time: 12:28 Bed IW7 Private MD: Diagnosis: Burn of first degree of right foot, initial encounter;Burn of first degree of left foot, initial encounter;Burn of second degree of foot-bilateral Presentation: 03/18 12:53 Chief complaint: Patient states: At pool yesterday on hot concrete and has blisters to ll1 both feet. Coronavirus screen: Client denies travel out of the [place] in the last 14 days. At this time, the client does not indicate any symptoms associated with coronavirus-19. Ebola Screen: Patient denies travel to an Ebola-affected area in the 21 days before illness onset. Initial Sepsis Screen: Does the patient meet any 2 criteria? No. Patient's initial sepsis screen is negative. Does the patient have a suspected source of infection? No. Patient's initial sepsis screen is negative. Risk Assessment: Do you want to hurt yourself or someone else? Patient reports no desire to harm self or others. Onset of symptoms was March 17, 2024. 12:53 Method Of Arrival: Wheelchair ll1 12:53 Acuity: PEYTON 4 ll1 Triage Assessment: 12:53 General: Appears uncomfortable, Behavior is calm, cooperative, appropriate for age. ll1 Pain: Complains of pain in right foot and left foot Quality of pain is described as aching. Respiratory: Airway is patent Trachea midline Respiratory effort is even, unlabored. Derm: Reports mackay to bottom of both feet. Musculoskeletal: Circulation, motion, and sensation intact. Capillary refill < 3 seconds. Injury Description: bottom of feet. Historical: - Allergies: 12:49 No Known Drug Allergies; ll1 - PMHx: 12:49 Anxiety; depressive disorder; Heart Murmur; pre eclampsia; UTI; ll1 - Immunization history:: Adult Immunizations up to date. - Infectious Disease History:: Denies. - Social history:: Smoking status: Reported history of juuling and/or vaping. Patient denies any tobacco usage or history of. Assessment: 13:35 Reassessment: Patient is alert, oriented x 3, equal unlabored respirations, skin aa5 warm/dry/pink. Vital Signs: 12:53 Pulse 93; Resp 17; Temp 97.1; Pulse Ox 97% ; Weight 92.99 kg; Height 5 ft. 5 in. ; Pain ll1 7; 12:53 Body Mass Index 34.11 (92.99 kg, 165.1 cm) ll1 12:53 Pain Scale: Adult ll1 ED Course: 12:30 Patient arrived in ED. mr 12:49 Arm band placed on. ll1 12:54 Triage completed. ll1 12:56 Lay Briones FNP-C is [facility]. kb 12:56 Mike Melendez MD is Attending Physician. kb 13:35 No provider procedures requiring assistance completed. Patient did not have IV access aa5 during this emergency room visit. Administered Medications: No medications were administered Outcome: 13:22 Discharge ordered by MD. kb 13:35 Discharged to home via wheelchair, with family, aa5 13:35 Condition: stable 13:35 Discharge instructions given to patient, Instructed on discharge instructions, follow up and referral plans. Demonstrated understanding of instructions, follow-up care, 13:37 Patient left the ED. aa5 Signatures: Lay Briones FNP-C ENGAGEMENT SPECIALIST-Citlali Azevedo, Reg Reg WhiteNiyah lipscomb, RN RN aa5 Piper Matias RN RN ll1
--- NOTE | 2024-03-18 13:23 | EDPHYS ---
Physician Documentation [facility] Name: Arina Valdes Age: 23 yrs Sex: Female : 2000 Arrival Date: 03/18/2024 Time: 12:28 Bed IW7 Private MD: ED Physician Mike Melendez HPI: 03/18 13:19 This 23 yrs old Female presents to ER via Wheelchair with complaints of Burn. kb 13:19 Patient is a 23-year-old female who presents for mackay to the bottom of her feet after kb walking around on the hot ground outside of the pool yesterday. States she noticed blisters last night so she came into be evaluated.. Historical: - Allergies: 12:49 No Known Drug Allergies; ll1 - PMHx: 12:49 Anxiety; depressive disorder; Heart Murmur; pre eclampsia; UTI; ll1 - Immunization history:: Adult Immunizations up to date. - Infectious Disease History:: Denies. - Social history:: Smoking status: Reported history of juuling and/or vaping. Patient denies any tobacco usage or history of. ROS: 13:17 Constitutional: As per HPI kb Exam: 13:17 Constitutional: This is a well developed, well nourished patient who is awake, alert, kb and in no acute distress. Head/Face: Normocephalic, atraumatic. ENT: Moist Mucous membranes Cardiovascular: Regular rate Respiratory: Respirations even and unlabored. No increased work of breathing. Talking in full sentences Abdomen/GI: Soft, non-tender. No distention MS/ Extremity: Pulses equal, no cyanosis. Neurovascular intact. Full, normal range of motion. Neuro: Awake and alert, GCS 15, oriented to person, place, time, and situation. Moves all extremities. Normal gait. 13:17 Skin: injury, burn(s), 1st and 2nd degree mackay to bottom of bilateral feet. , Vital Signs: 12:53 Pulse 93; Resp 17; Temp 97.1; Pulse Ox 97% ; Weight 92.99 kg; Height 5 ft. 5 in. ; Pain ll1 7/10; 12:53 Body Mass Index 34.11 (92.99 kg, 165.1 cm) ll1 12:53 Pain Scale: Adult ll1 MDM: 12:57 Patient medically screened. kb 13:18 Differential diagnosis: 1st degree mackay, 2nd degree mackay, 3rd degree mackay. Data kb reviewed: vital signs, nurses notes. I considered the following discharge prescriptions or medication management in the emergency department I discussed and recommended Over The Counter medications. Counseling: I had a detailed discussion with the patient and/or guardian regarding the historical points, exam findings, and any diagnostic results supporting the discharge/admit diagnosis, the need for outpatient follow up, a family practitioner, to return to the emergency department if symptoms worsen or persist or if there are any questions or concerns that arise at home. 13:19 ED course: Patient is a 23-year-old female who presents for mackay to the bottom of her kb feet after walking on the hot ground yesterday. On exam patient has first and second-degree mackay to the bottom of her feet bilaterally, small blisters noted. Patient educated on ndti-vej-gpavpyp analgesics, wound care and use of Neosporin. Educated on return precautions. Verbal understanding received.. Administered Medications: No medications were administered Disposition: 14:46 Co-signature as Attending Physician, Mike Melendez MD I reviewed the patient's care rt provided by the Advanced Practice Provider and agree with the diagnosis and treatment plan. Disposition Summary: 03/18/24 13:22 Discharge Ordered Notes: Location: Home kb Condition: Stable kb Diagnosis - Burn of first degree of right foot, initial encounter kb - Burn of first degree of left foot, initial encounter kb - Burn of second degree of foot - bilateral kb Followup: kb - With: Emergency Department - When: As needed - Reason: Worsening of condition Followup: kb - With: Private Physician - When: 2 - 3 days - Reason: Recheck today's complaints, Continuance of care, Re-evaluation by your physician Discharge Instructions: - Discharge Summary Sheet kb - Burn Care, Adult, Wjfp-ve-Blnb kb Forms: - Medication Reconciliation Form kb - Antibiotic Education kb - Prescription Opioid Use kb - Patient Portal Instructions kb - Leadership Thank You Letter kb Signatures: Lay Briones FNP-C FNP-Ckb Lewis, Lynsay RN RN ll1 Mike Melendez MD MD rt
[2024-03-18 13:53] VITALS: TEMP 97.1; O2SAT 97
== END 2024-03-18 13:37 | disposition home or self-care (01) ==
LOC: ER 12:28
DX: T25.222A Burn of second degree of left foot, initial encounter (principal); T25.221A Burn of second degree of right foot, initial encounter; F17.290 Nicotine dependence, other tobacco product, uncomplicated
CPT/HCPCS: 99282

== ENCOUNTER 2024-06-02 01:00 | Emergency (ER) | payer OTHER ==
--- OUTSIDE RECORDS SUMMARY | 2024-06-02 01:16 | XMS REPORT | Continuity of Care Document ---
Author Name Unknown Address [address] [facility]. 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 Role Phone Yolanda Champion Primary Care Physician [phone] DORIAN LOZOYA Attending Clinician Unavailable DORIAN LOZOYA Attending Clinician Unavailable Olamide Chadwick MD Attending Clinician [phone] Doctor Unassigned, [place] Attending Clinician U Kory Yo MD Attending Clinician KORY CRUZ Attending Clinician Unavailable Stanley KENNEDY, Xenia Mac Attending Clinician + Agnes Pedraza MD Attending Clinician ARIELA WILKINSON Attending Clinician ARIELA Dunn Attending Clinician Jose Antonio candelario 2, [facility] Attending Clinician Unavailable MARY AVINA Attending Clinician Unavailable Mary Avina MD Attending Clinician [phone] ELOY CHAVEZ Attending Clinician Unavaila Nacho Dior DO Attending Clinician +[phone] Sheldon KENNEDY, Kristal Phelps Attending Clinician + Scott KENNEDY, Eloy Ramires Attending Clinician [phone], [facility] Us Room Attending Clinician Unavailcatherine Melton MD, Sunita Segura Attending Clinician [phone] Nurse, [facility] Attending Clinician Amanda rustam RODRIGUEZM, Krystal Sears Attending Clinician [phone] Sammy RN, Heidi T Attending Clinician Unavaila kam Akinsirebecca WHCNPHuy Attending Clinician + HUY MENDOZA Attending Clinician Unavail able SHELLEY OCASIO Attending Clinician Unav ailbarb [facility] Attending Clinician Unavaila kam Daniels MD, Franco Attending Clinician + KRYSTAL LOW Attending Clinician UnavailLEEROY Carter Attending Clinician Unavailable YVONNE SIDDIQI Attending Clinician Unavailable Yvonne Rodriguez Attending Clinician [phone] [facility] [place] [place]ending Clinician Unadereck ilBroderick Ballesteros DO Attending Clinician [phone] JOSY CHAUDHARY Attending Clinician Unavailable KRISSY GREEN Attending Clinician Unavailable Josy Chaudhary PA-C Attending Clinician [phone], [facility] Attending Clinician Unavailable ARIELA WILKINSON Admitting Clinician KORY Weller Admitting Clinician Unavailable Anthony KENNEDY, Kory Vasquez Admitting Clinician [phone] MARY AVINA Admitting Clinician Unavailable Mary Avina MD Admitting Clinician ELOY CHAVEZ Admitting Clinician UnavailEloy Lewis MD Admitting Clinician Payers Payer Name Policy Type Policy Number Effective Date Expirati on Date Source [facility] [id number] 2023 00:00:00 MEDICAID PENDING PENDING 2023 00:00:00 2023 00:00:00 [place] [id number] 2023 00:00:00 2023 00:00:00 [facility] [id number] 2018 00:00:00 Problems Condition Name Condition Details Condition Category Status Onset Date Resolution Date Last Treatment Date Treating Clinician Comments Source Normal labor Normal labor Disease Active 09-25 00:00: 00 [facility] Liveborn , of [place] , born in hospital by vaginal delivery Liveborn , of [place] , born in hospital by vaginal delivery Disease Active 09-25 00:00: 00 [facility] 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 Disease Active 2022-09 00:00: 00 [facility] 37 weeks gestation of 37 weeks gestation of Disease Active 2022-09 00:00: 00 [facility] Drug use complicati ng in third trimester Drug use complicati ng in third trimester Disease Active 2022-09 00:00: 00 [facility] 38 weeks gestation of 38 weeks gestation of Disease Active 2022-09 00:00: 00 [facility] Fall (on) (from) unspecifie d stairs and steps, sequela Fall (on) (from) unspecifie d stairs and steps, sequela Disease Active 2022-09 00:00: 00 [facility] Injury Injury Disease Active 2022-09 00:00: 00 [facility] Fall Fall Disease Active 2022-09 00:00: 00 [facility] High-risk in third trimester High-risk in third trimester Disease Active 2022-09 00:00: 00 [facility] Limited care in third trimester Limited care in third trimester Disease Active 2022-09 00:00: 00 [facility] Cramping affecting , antepartum Cramping affecting , antepartum Disease Active 2022-09 00:00: 00 [facility] 30 weeks gestation of 30 weeks gestation of Disease Active 2022-09 00:00: 00 [facility] 31 weeks gestation of 31 weeks gestation of Disease Active 2022-09 00:00: 00 [facility] Maternal varicella, non-immune Maternal varicella, non-immune Disease Active 02-12 00:00: 00 [facility] Obesity affecting Obesity affecting Disease Active 02-11 00:00: 00 [facility] History of heart murmur in childhood History of heart murmur in childhood Disease Active 02-11 00:00: 00 Overview: Formattin g of this note might be different from the original. Age 12EKG NSR with sinus arrhythmi a. Normal EKG compared to 7. [facility] Family history of autism Family history of autism Disease Active 02-11 00:00: 00 Overview: Formattin g of this note might be different from the original. Patient sister and daughter [facility] Anemia, antepartum , third trimester Anemia, antepartum , third trimester Disease Active 2018-09 00:00: 00 [facility] History of anxiety and depression History of anxiety and depression Disease Active 01-04 00:00: 00 [facility] Anxiety during Anxiety during Disease Active 01-04 00:00: 00 [facility] uterine contractio ns, antepartum , third trimester uterine contractio ns, antepartum , third trimester Disease Resolve d 2022-09 00:00: 00 2023-09-25 00:00:00 2023-09-25 01:41:06 [facility] 33 weeks gestation of 33 weeks gestation of Disease Resolve d 2022-09 00:00: 00 2023-08-28 00:00:00 2023-08-28 12:38:51 [facility] Trichomona l vaginitis during Trichomona l vaginitis during Disease Resolve d 2022-0 5-26 00:00: 00 2023-08-04 00:00:00 2023-08-04 10:21:06 [facility] Nausea and vomiting during Nausea and vomiting during Disease Resolve d 0 - 00:00: 00 2023-03-13 00:00:00 2023-03-13 21:27:28 [facility] Nexplanon insertion Nexplanon insertion Disease Resolve d 2018-09 216 00:00: 00 2023-02-11 00:00:00 2023-02-11 13:15:49 [facility] Nexplanon in place Nexplanon in place Disease Resolve d 2018-09 2-16 00:00: 00 2023-02-11 00:00:00 2023-02-11 13:15:51 [facility] Encounter for female control Encounter for female control Disease Resolve d 2018-09 2-16 00:00: 00 2023-02-11 00:00:00 2023-02-11 13:15:53 [facility] Anemia, antepartum , third trimester Anemia, antepartum , third trimester Disease Resolve d 2018-0912 00:00: 00 2023-02-11 00:00:00 2023-02-11 13:15:55 [facility] Obesity (BMI 30-39.9) Obesity (BMI 30-39.9) Disease Resolve d 4-15 00:00: 00 2023-02-11 00:00:00 2023-02-11 13:15:59 [facility] History of depression History of depression Disease Resolve d 4-15 00:00: 00 2023-02-11 00:00:00 2023-02-11 20:41:59 [facility] 39 weeks gestation of 39 weeks gestation of Disease Resolve d 2018-09 00:00: 00 2019-09-06 00:00:00 2019-09-06 12:08:27 [facility] Allergies, Adverse Reactions, Alerts Allergy Name Allergy Type Status Severity Reaction(s) Onset Date Inactive Date Treating Clinician Comments Source NO KNOWN ALLERGIE S Drug Class Active [facility] Social History Social Habit Start Date Stop Date Quantity Comments Source ASSERTION 2023-01-10 00:00:00 [facility] History of tobacco use Passive smoker [facility] Alcoholic beverage intake 2024-04-19 00:00:00 2024-04-19 00:00:00 Current non-drinker of alcohol (finding) [facility] Alcohol intake 2023-10-10 00:00:00 2023-10-10 00:00:00 Current non-drinker of alcohol (finding) [facility] Tobacco Comment 2023-02-11 00:00:00 2023-02-11 00:00:00 fiance smokes outside [facility] Tobacco use and exposure 2023-02-11 00:00:00 2023-02-11 00:00:00 Smokeless tobacco non-user [facility] History of Social function 2023-02-11 00:00:00 2023-02-11 00:00:00 [facility] Exposure to SARS-CoV-2 (event) 2022-01-06 00:00:00 2022-01-16 20:33:00 Unable to assess [facility] Sex assigned at 2000 00:00:00 2000 00:00:00 [facility] Smoking Status Start Date Stop Date Source Never smoked tobacco [facility] Medications Ordered Medication Name Filled Medication Name Start Date Stop Date Current Medication? Ordering Clinician Indication Dosage Frequency Signature (SIG) Comments Components Source acetaminoph en (TYLENOL) tablet 975 mg 04-19 20:15: 00 04-19 21:01 :00 No 975mg 975 mg, Oral, ONCE NOW, 1 dose, On Fri04/19/24 at 1515, ABHAY [facility] ketorolac (TORADOL) injection 30 mg 04-19 20:00: 00 04-19 21:01 :00 No 30mg 30 mg, Slow IV Push, ONCE NOW, 1 dose, On Fri04/19/24 at 1500, [facility] gabapentin (NEURONTIN) capsule 300 mg 04-19 19:15: 00 04-19 21:01 :00 No 300mg 300 mg, Oral, ONCE, 1 dose, On Fri04/19/24 at 1415, [facility] dexamethaso ne sod phos PF injection 10 mg 04-19 19:15: 00 04-19 21:01 :00 No 10mg 10 mg, Slow IV Push, ONCE, 1 dose, On Fri04/19/24 at 1415, 1 mL [facility] meloxicam 15 mg tablet 03-22 00:00: 00 Yes 1mg [facility] loratadine 10 mg tablet 03-22 00:00: 00 Yes 1mg [facility] buspirone 15 mg tablet 03-22 00:00: 00 Yes 1mg [facility] cyclobenzap rine 10 mg tablet 03-22 00:00: 00 Yes 1mg [facility] amoxicillin 500 mg capsule 03-22 00:00: 00 Yes 1mg [facility] SERTraline (ZOLOFT) 50 mg tablet 10-17 00:00: 00 Yes [id number] 50mg Take 1 tablet by mouth in the morning. [facility] busPIRone 10 mg tablet 10-10 00:00: 00 Yes [id number] 10mg Take 1 tablet by mouth in the morning and 1 tablet in the evening. [facility] SERTraline (ZOLOFT) 25 mg tablet 10-10 00:00: 00 10-18 05:59 :00 No [id number] 25mg Take 1 tablet by mouth in the morning for 7 days. [facility] vitamin w/FA tablet 09-26 00:00: 00 Yes [id number] 1{tbl} Take 1 tablet by mouth in the morning. [facility] docusate 100 mg capsule 09-26 00:00: 00 Yes [id number] 200mg Take 2 capsules by mouth once daily as needed for Constipati on. [facility] ferrous sulfate 325 mg (65 mg iron) tablet 09-26 00:00: 00 Yes [id number] 325mg Take 1 tablet by mouth in the morning and 1 tablet in the evening. [facility] ibuprofen 600 mg tablet 09-26 00:00: 00 Yes [id number] 600mg Take 1 tablet by mouth every 6 (six) hours as needed (Pain). Take with food or milk. [facility] witch Gilbert (TUCKS) 50 % topical pad 09-25 16:22: 14 Yes Topical, Q4HPRN, Starting on Fri09/25/23 at 1022, Until Discontinu ed, Routine, rectal/hem orrhoidal [facility] rho(D) immune globulin (RHOGAM) syringe 300 mcg 09-25 16:18: 36 Yes 300ug 300 mcg, Intramuscu lar, ONCE, For 1 dose, Conditiona l, Routine [facility] HYDROcodone -acetaminop hen (NORCO 5) 5-325 mg tablet 1 tablet 09-25 16:18: 06 Yes 1{tbl} 1 tablet, Oral, Q6HPRN, Starting on Fri09/25/23 at 1018, Until Discontinu ed, Routine, Pain (scale 7-10) [facility] ibuprofen (IBU) tablet 600 mg 09-25 16:18: 06 Yes 600mg 600 mg, Oral, Q6HPRN, Starting on Fri09/25/23 at 1018, Until Discontinu ed, Routine, Pain (scale 4-6) [facility] acetaminoph en (TYLENOL) tablet 650 mg 09-25 16:18: 06 Yes 650mg 650 mg, Oral, Q6HPRN, Starting on Fri09/25/23 at 1018, Until Discontinu ed, Routine, Pain (scale 1-3) [facility] diphenhydrA MINE (BENADRYL) tablet 25 mg 09-25 16:18: 06 Yes 25mg 25 mg, Oral, Q6HPRN, Starting on Fri09/25/23 at 1018, Until Discontinu ed, Routine, Sleep, Itching [facility] ondansetron (ZOFRAN (PF)) injection 4 mg 09-25 16:18: 06 Yes 4mg 4 mg, Slow IV Push, Q8HPRN, Starting on Fri09/25/23 at 1018, Until Discontinu ed, Routine, Nausea and Vomiting (N/V) [facility] simethicone (GAS RELIEF (SIMETHICON E)) chewable tablet 160 mg 09-25 16:18: 06 Yes 160mg 160 mg, Oral, PC+HSPRN, Starting on Fri09/25/23 at 1018, Until Discontinu ed, Routine, Gas [facility] docusate (COLACE) capsule 200 mg 09-25 16:18: 06 Yes 200mg 200 mg, Oral, QDAILYPRN, Starting on Fri09/25/23 at 1018, Until Discontinu ed, Routine, Constipati on [facility] magnesium hydroxide (MILK OF MAGNESIA) 400 mg/5 mL suspension 30 mL 09-25 16:18: 06 Yes 30mL 30 mL, Oral, QDAILYPRN, Starting on Fri09/25/23 at 1018, Until Discontinu ed, Routine, Constipati on [facility] benzocaine- menthol (DERMOPLAST ) 20-0.5 % topical spray 09-25 16:18: 06 Yes Topical, PRN, Starting on Fri09/25/23 at 1018, Until Discontinu ed, Routine, Perineum discomfort [facility] SERTraline (ZOLOFT) tablet 100 mg 09-25 15:00: 00 Yes 100mg 100 mg, Oral, DAILY, First dose on 09/25/24 at 0900, Until Discontinu ed, Routine [facility] fentaNYL-ro pivacaine 2 mcg/mL-0.1 % (PF) in NS 200 mL epidural infusion RTU 09-25 09:30: 00 09-25 14:54 :08 No Epidural, ONCE INTRA PROCEDURE, Starting on Airam 09/25/23 at 0330, Until Airam 09/25/23 at 0854, Routine, Intra-op [facility] lidocaine-e pinephrine (XYLOCAINE W/EPINEPHRI NE) 1.5 %-1:200,000 injection 09-25 09:30: 00 09-25 14:54 :08 No Intraderma l, ONCE INTRA PROCEDURE, Starting on Airam 09/25/23 at 0330, Until Airam 09/25/23 at 0854, Routine, Intra-op [facility] FENTanyl PF (SUBLIMAZE (PF)) injection 100 mcg 09-25 07:40: 08 09-25 16:22 :14 No 100ug 100 mcg, Slow IV Push, Q1HPRN, Starting on Airam 09/25/23 at 0140, Until Airam 09/25/23 at 1022, Routine, contractio n pain without an epidural and SVE < 8 cm and Cat I strip [facility] ondansetron (ZOFRAN (PF)) injection 4 mg 09-25 07:40: 00 09-25 16:22 :14 No 4mg 4 mg, Slow IV Push, Q8HPRN, Nausea and Vomiting (N/V), Starting on Airam 09/25/23 at 0140
Do ses of ondansetro n 16 mg and above need to be administer ed via IV piggyback. For Dose >=24mg ECG monitoring is advisable.
[facility] oxytocin (PITOCIN) 30 units in NS 500 mL IV infusion 09-25 07:38: 50 09-25 16:21 :41 No 2mU/min at 2-40 mL/hr, IV Infusion, TITRATE, Starting on Airam 09/25/23 at 0138, Until Airam 09/25/23 at 1021, ABHAY [facility] oxytocin (PITOCIN) 30 units in NS 500 mL IV infusion 09-25 07:36: 45 09-25 13:45 :00 No 600mL/h 600 mL/hr, IV Infusion, PRN, PPH, Starting on Airam 09/25/23 at 0136, For 1 dose
As instructed by physician at bedside.<b r> [facility] lactated ringers IV infusion 500 mL 09-25 07:36: 45 09-25 16:21 :41 No 500mL at 999 mL/hr, 500 mL, IV Infusion, PRN - SEE INSTRUCTIO NS, Starting on Airam 09/25/23 at 0136, Until Airam 09/25/23 at 1021, Routine [facility] D5W-LR IV infusion 1,000 mL 09-25 07:36: 45 09-25 16:21 :40 No 1000mL at 1-125 mL/hr, IV Infusion, TITRATE, Starting on Airam 09/25/23 at 0136, Until Airam 09/25/23 at 1021, Routine [facility] famotidine 20 mg tablet 2022-09 00:00: 00 09-26 00:00 :00 No [id number] 20mg Take 1 tablet by mouth in the morning and 1 tablet in the evening. [facility] lactated ringers IV infusion 1,000 mL 2022-09 09:30: 00 Yes 1000mL at 125 mL/hr, 1,000 mL, IV Infusion, CONTINUOUS , Starting on Fri09/16/23 at 0330, Until Discontinu ed, Routine [facility] acetaminoph en (TYLENOL) tablet 650 mg 2022-09 09:17: 17 Yes 650mg 650 mg, Oral, Q6HPRN, Starting on Fri09/16/23 at 0317, Until Discontinu ed, Routine, Pain (scale 1-3) [facility] SERTraline 100 mg tablet 2022-09 00:00: 00 09-26 00:00 :00 No [id number] 109 100mg Take 1 tablet by mouth in the morning. [facility] proMETHazin e (PHENERGAN) tablet 25 mg 2022-09 14:29: 24 Yes 25mg 25 mg, Oral, Q6HPRN, Starting on Fri08/22/23 at 0829, Until Discontinu ed, Routine, Nausea and Vomiting (N/V) [facility] diphenhydrA MINE (BENADRYL) tablet 25 mg 2022-09 03:00: 00 08-22 03:19 :00 No 25mg 25 mg, Oral, ONCE, 1 dose, On Fri08/21/23 at 2100, Routine [facility] ferrous sulfate 325 mg (65 mg iron) tablet 2022-09 00:00: 00 09-26 00:00 :00 No [id number] 325mg Take 1 tablet by mouth in the morning. [facility] cyclobenzap rine (FLEXERIL) tablet 10 mg 2022-09 22:15: 00 08-21 22:06 :00 No 10mg 10 mg, Oral, ONCE NOW, 1 dose, On Fri08/21/23 at 1615, Routine [facility] terbutaline (BRETHINE) injection 0.25 mg 2022-09 19:45: 00 08-21 19:08 :00 No .25mg 0.25 mg, Subcutaneo us, ONCE, 1 dose, On Fri08/21/23 at 1345, Routine [facility] lactated ringers IV infusion 1,000 mL 2022-09 18:00: 00 08-21 19:10 :00 No 1000mL at 999 mL/hr, 1,000 mL, IV Infusion, ONCE, 1 dose, On Fri08/21/23 at 1200, Routine [facility] acetaminoph en (TYLENOL) tablet 1,000 mg 2022-09 17:00: 00 08-21 16:12 :00 No 1000mg 1,000 mg, Oral, ONCE, 1 dose, On Fri08/21/23 at 1100, Routine [facility] ferrous sulfate tablet 325 mg 2022-09 15:00: 00 Yes 325mg 325 mg, Oral, DAILY, First dose on Fri08/21/23 at 0900, Until Discontinu ed, Routine [facility] SERTraline (ZOLOFT) tablet 100 mg 2022-09 15:00: 00 Yes 100mg 100 mg, Oral, DAILY, First dose on Fri08/21/23 at 0900, Until Discontinu ed, Routine [facility] diphenhydrA MINE (BENADRYL) tablet 25 mg 2022-09 09:16: 00 08-21 09:24 :00 No 25mg 25 mg, Oral, ONCE, 1 dose, On Fri08/21/23 at 0330, Routine [facility] fluconazole (DIFLUCAN) tablet 150 mg 2022-09 08:00: 00 08-21 08:00 :00 No 150mg 150 mg, Oral, ONCE, 1 dose, On Fri08/21/23 at 0200, ABHAY
Re ason for Anti-Infec tive: Documented Infection< br>Documen refugio Infection Site: Pelvic
Duration of Therapy: 7 days [facility] alum-mag hydroxide-s imeth (MAG-AL PLUS) 200-200-20 mg/5 mL suspension 30 mL 2022-09 07:05: 45 Yes 30mL 30 mL, Oral, Q6HPRN, Starting on Fri08/21/23 at 0105, Until Discontinu ed, Routine, Indigestio n [facility] docusate (COLACE) capsule 200 mg 2022-09 07:05: 45 Yes 200mg 200 mg, Oral, QHSPRN, Starting on Fri08/21/23 at 0105, Until Discontinu ed, Routine, Constipati on [facility] magnesium hydroxide (MILK OF MAGNESIA) 400 mg/5 mL suspension 30 mL 2022-09 07:05: 45 Yes 30mL 30 mL, Oral, QDAILYPRN, Starting on Fri08/21/23 at 0105, Until Discontinu ed, Routine, Constipati on [facility] ondansetron (ZOFRAN (PF)) injection 4 mg 2022-09 06:45: 00 08-21 06:58 :00 No 4mg 4 mg, Slow IV Push, ONCE, On Fri08/21/23 at 0045, For 1 dose
Do ses of ondansetro n 16 mg and above need to be administer ed via IV piggyback. For Dose >=24mg ECG monitoring is advisable.
[facility] acetaminoph en (TYLENOL) tablet 1,000 mg 2022-09 06:45: 00 08-21 06:58 :00 No 1000mg 1,000 mg, Oral, ONCE, 1 dose, On Fri08/21/23 at 0045, Routine [facility] FENTanyl PF (SUBLIMAZE (PF)) injection 100 mcg 2022-09 02:15: 00 08-21 01:26 :00 No 100ug 100 mcg, Slow IV Push, ONCE, 1 dose, On Fri08/20/23 at 2015, Routine [facility] betamethaso ne acet,sod phos (CELESTONE SOLUSPAN) 6 mg/mL injection 12 mg 2022-09 01:45: 00 08-22 01:34 :00 No 12mg 12 mg, Intramuscu lar, Q24H, 2 doses, First dose on Fri08/20/23 at 1945, Last dose on Fri08/21/23 at 1945, Routine [facility] D5W 0.9% NaCl (NS) IV infusion 1,000 mL 2022-09 23:45: 00 08-21 19:39 :48 No 1000mL at 125 mL/hr, 1,000 mL, IV Infusion, CONTINUOUS , Starting on Fri08/20/23 at 1745, Until Fri08/21/23 at 1339, Routine [facility] SERTraline 100 mg tablet 2022-09 00:00: 00 09-11 00:00 :00 No [id number] 109 100mg Take 1 tablet by mouth in the morning. [facility] Nitrofurant oin&Nit. Macrocryst (MACROBID) 100 mg capsule 2022-09 00:00: 00 08-12 05:59 :00 No [id number] 100mg Take 1 capsule by mouth in the morning and 1 capsule in the evening. Do all this for 7 days. [facility] acetaminoph en (TYLENOL) tablet 650 mg 2022-09 10:00: 00 07-29 09:53 :00 No 650mg 650 mg, Oral, ONCE, 1 dose, On Fri07/29/23 at 0400, Routine [facility] SERTraline 100 mg tablet 05-21 00:00: 00 08-04 00:00 :00 No [id number] 109 100mg Take 1 tablet by mouth in the morning. [facility] ondansetron (ZOFRAN (PF)) injection 4 mg 04-18 20:45: 00 04-18 20:21 :00 No 4mg 4 mg, Slow IV Push, ONCE, On Fri04/18/23 at 1545, For 1 dose
Do ses of ondansetro n 16 mg and above need to be administer ed via IV piggyback. For Dose >=24mg ECG monitoring is advisable.
[facility] NaCl 0.9% (NS) bolus infusion 1,000 mL 04-18 20:30: 00 04-18 19:32 :00 No 1000mL at 999 mL/hr, 1,000 mL, IV Infusion, ONCE, 1 dose, On Fri04/18/23 at 1530, STAT [facility] NaCl 0.9% (NS) bolus infusion 1,000 mL 04-18 19:15: 00 04-18 18:27 :00 No 1000mL at 999 mL/hr, 1,000 mL, IV Infusion, ONCE, 1 dose, On Fri04/18/23 at 1415, STAT [facility] metroNIDAZO LE (FLAGYL) 500 mg tablet 04-18 00:00: 00 08-04 00:00 :00 No [id number] 500mg Take 1 tablet by mouth every 12 (twelve) hours. [facility] FLUCONAZOLE 150MG 04-14 00:00: 00 Yes [id number] [facility] SERTRALINE 50MG 04-14 00:00: 00 Yes [id number] [facility] PROMETHAZIN E 25MG 04-14 00:00: 00 Yes [id number] [facility] fluconazole (DIFLUCAN) 150 mg tablet 04-07 00:00: 00 04-08 04:59 :00 No [id number] 150mg Take 1 tablet by mouth once now for 1 dose. [facility] proMETHazin e 25 mg tablet 04-03 00:00: 00 09-26 00:00 :00 No [id number] 25mg Take 1 tablet by mouth every 4 (four) hours as needed for Nausea and Vomiting (N/V). [facility] SERTraline (ZOLOFT) 50 mg tablet 04-03 00:00: 00 05-08 04:59 :00 No [id number] 109 Take 1 tablet by mouth daily for 4 days, THEN 2 tablets daily for 30 days. [facility] vit 33-iron-fol ic-dha (SELECT-OB + DHA) 29 mg iron-1 mg -250 mg combo pack 03-11 00:00: 00 Yes [id number] 1{packe t} Take 1 Packet by mouth in the morning. [facility] vit 33-iron-fol ic-dha (SELECT-OB + DHA) 29 mg iron-1 mg -250 mg combo pack 03-11 00:00: 00 09-26 00:00 :00 No [id number] 1{packe t} Take 1 Packet by mouth in the morning. [facility] proMETHazin e 25 mg tablet 5-30 00:00: 00 04-03 00:00 :00 No [id number] 25mg Take 1 tablet by mouth every 4 (four) hours as needed for Nausea and Vomiting (N/V). [facility] metroNIDAZO LE 500 mg tablet 02-14 00:00: 00 02-15 04:59 :00 No [id number] 2000mg Take 4 tablets by mouth once now for 1 dose. [facility] ondansetron (ZOFRAN (PF)) injection 4 mg 01-17 04:00: 01-17 03:11 :00 No 4mg 4 mg, Slow IV Push, ONCE, 1 dose, On Fri01/16/22 at 2300, ABHAY [facility] NaCl 0.9% (NS) bolus infusion 1,000 mL 01-17 04:00: 00 01-17 03:52 :00 No 1000mL at 999 mL/hr, 1,000 mL, IV Infusion, ONCE, 1 dose, On Fri01/16/22 at 2300, ABHAY [facility] ondansetron 4 mg disintegrat ing tablet 01-16 00:00: 04-03 00:00 :00 No [id number] 4mg Take 1 tablet by mouth every 8 (eight) hours as needed for Nausea and Vomiting (N/V). [facility] azithromyci n 250 mg tablet 12-17 00:00: 00 02-11 00:00 :00 No [id number] 250mg Take 1 tablet by mouth daily. Take 500 mg day 1, then 250 mg days 2 to 5. [facility] Nitrofurant oin&Nit. Macrocryst 100 mg capsule 05-04 00:00: 00 05-12 04:59 :00 No [id number] 100mg Take 1 capsule by mouth 2 (two) times daily for 7 days. [facility] metroNIDAZO LE 500 mg tablet 04-30 00:00: 00 05-04 00:00 :00 No [id number] 500mg Take 1 tablet by mouth every 12 (twelve) hours. [facility] fluconazole (DIFLUCAN) 200 mg tablet 04-29 00:00: 00 05-04 00:00 :00 No [id number] 200mg Take 1 tablet by mouth daily. [facility] [id number], carb,glu-FA -dss-dha (CITRANATAL DHA, ALGAL OIL,) 27 mg iron-1 mg -50 mg-250 mg Cmpk -15 00:00: 00 Yes [id number] Take 1 TAB-CAP/M2 by mouth daily. [facility] Immunizations Ordered Immunization Name Filled Immunization Name Date Status Comments Source Tdap Tdap 2023-08-04 00:00:00 Completed [facility] Influenza, injectable, [facility] [place] [facility], preservative-free, quadrivalent Influenza, injectable, [facility] [place] [facility], preservative-free, quadrivalent 2023-08-04 00:00:00 Completed [facility] SARS-COV-2 COVID-19 VACCINE - (MODERNA) 2021-11-01 00:00:00 Completed [facility] SARS-COV-2 COVID-19 VACCINE - (MODERNA) 2021-11-01 00:00:00 Completed [facility] SARS-COV-2 COVID-19 VACCINE - (MODERNA) 2021-11-01 00:00:00 Completed [facility] SARS-COV-2 COVID-19 VACCINE - (MODERNA) 2021-11-01 00:00:00 Completed [facility] SARS-COV-2 COVID-19 VACCINE - (MODERNA) 2021-11-01 00:00:00 Completed [facility] SARS-COV-2 COVID-19 VACCINE - (MODERNA) 2021-11-01 00:00:00 Completed [facility] SARS-COV-2 COVID-19 VACCINE - (MODERNA) 2021-11-01 00:00:00 Completed [facility] SARS-COV-2 COVID-19 VACCINE - (MODERNA) 2021-11-01 00:00:00 Completed [facility] SARS-COV-2 COVID-19 VACCINE - (MODERNA) 2021-11-01 00:00:00 Completed [facility] SARS-COV-2 COVID-19 VACCINE - (MODERNA) 2021-11-01 00:00:00 Completed [facility] SARS-COV-2 COVID-19 VACCINE - (MODERNA) 2021-11-01 00:00:00 Completed [facility] SARS-COV-2 COVID-19 VACCINE - (MODERNA) 2021-11-01 00:00:00 Completed [facility] SARS-COV-2 COVID-19 VACCINE - (MODERNA) 2021-11-01 00:00:00 Completed [facility] SARS-COV-2 COVID-19 VACCINE - (MODERNA) 2021-11-01 00:00:00 Completed [facility] SARS-COV-2 COVID-19 VACCINE - (MODERNA) 2021-11-01 00:00:00 Completed [facility] SARS-COV-2 COVID-19 VACCINE - (MODERNA) 2021-11-01 00:00:00 Completed [facility] SARS-COV-2 COVID-19 VACCINE - (MODERNA) 2021-11-01 00:00:00 Completed [facility] SARS-COV-2 COVID-19 VACCINE - (MODERNA) 2021-11-01 00:00:00 Completed [facility] SARS-COV-2 COVID-19 VACCINE - (MODERNA) 2021-11-01 00:00:00 Completed [facility] SARS-COV-2 COVID-19 VACCINE - (MODERNA) 2021-11-01 00:00:00 Completed [facility] SARS-COV-2 COVID-19 VACCINE - (MODERNA) 2021-11-01 00:00:00 Completed [facility] SARS-COV-2 COVID-19 VACCINE - (MODERNA) 2021-06-08 00:00:00 Completed [facility] SARS-COV-2 COVID-19 VACCINE - (MODERNA) 2021-06-08 00:00:00 Completed [facility] SARS-COV-2 COVID-19 VACCINE - (MODERNA) 2021-06-08 00:00:00 Completed [facility] SARS-COV-2 COVID-19 VACCINE - (MODERNA) 2021-06-08 00:00:00 Completed [facility] SARS-COV-2 COVID-19 VACCINE - (MODERNA) 2021-06-08 00:00:00 Completed [facility] SARS-COV-2 COVID-19 VACCINE - (MODERNA) 2021-06-08 00:00:00 Completed [facility] SARS-COV-2 COVID-19 VACCINE - (MODERNA) 2021-06-08 00:00:00 Completed [facility] SARS-COV-2 COVID-19 VACCINE - (MODERNA) 2021-06-08 00:00:00 Completed [facility] SARS-COV-2 COVID-19 VACCINE - (MODERNA) 2021-06-08 00:00:00 Completed [facility] SARS-COV-2 COVID-19 VACCINE - (MODERNA) 2021-06-08 00:00:00 Completed [facility] SARS-COV-2 COVID-19 VACCINE - (MODERNA) 2021-06-08 00:00:00 Completed [facility] SARS-COV-2 COVID-19 VACCINE - (MODERNA) 2021-06-08 00:00:00 Completed [facility] SARS-COV-2 COVID-19 VACCINE - (MODERNA) 2021-06-08 00:00:00 Completed [facility] SARS-COV-2 COVID-19 VACCINE - (MODERNA) 2021-06-08 00:00:00 Completed [facility] SARS-COV-2 COVID-19 VACCINE - (MODERNA) 2021-06-08 00:00:00 Completed [facility] SARS-COV-2 COVID-19 VACCINE - (MODERNA) 2021-06-08 00:00:00 Completed [facility] SARS-COV-2 COVID-19 VACCINE - (MODERNA) 2021-06-08 00:00:00 Completed [facility] SARS-COV-2 COVID-19 VACCINE - (MODERNA) 2021-06-08 00:00:00 Completed [facility] SARS-COV-2 COVID-19 VACCINE - (MODERNA) 2021-06-08 00:00:00 Completed [facility] SARS-COV-2 COVID-19 VACCINE - (MODERNA) 2021-06-08 00:00:00 Completed [facility] SARS-COV-2 COVID-19 VACCINE - (MODERNA) 2021-06-08 00:00:00 Completed [facility] Influenza Virus Vaccine Quad .5 mL IM 6+ MO 2019-06-29 00:00:00 Completed [facility] Influenza Virus Vaccine Quad .5 mL IM 6+ MO 2019-06-29 00:00:00 Completed [facility] Influenza Virus Vaccine Quad .5 mL IM 6+ MO 2019-06-29 00:00:00 Completed [facility] Influenza Virus Vaccine Quad .5 mL IM 6+ MO 2019-06-29 00:00:00 Completed [facility] Influenza Virus Vaccine Quad .5 mL IM 6+ MO (FLUZONE/FLULAVAL/FL UARIX) 2019-06-29 00:00:00 Completed [facility] Influenza Virus Vaccine Quad .5 mL IM 6+ MO (FLUZONE/FLULAVAL/FL UARIX) 2019-06-29 00:00:00 Completed [facility] Influenza Virus Vaccine Quad .5 mL IM 6+ MO (FLUZONE/FLULAVAL/FL UARIX) 2019-06-29 00:00:00 Completed [facility] Influenza Virus Vaccine Quad .5 mL IM 6+ MO (FLUZONE/FLULAVAL/FL UARIX) 2019-06-29 00:00:00 Completed [facility] Influenza Virus Vaccine Quad .5 mL IM 6+ MO 2019-06-29 00:00:00 Completed [facility] Influenza Virus Vaccine Quad .5 mL IM 6+ MO 2019-06-29 00:00:00 Completed [facility] Influenza Virus Vaccine Quad .5 mL IM 6+ MO 2019-06-29 00:00:00 Completed [facility] Influenza Virus Vaccine Quad .5 mL IM 6+ MO 2019-06-29 00:00:00 Completed [facility] Influenza Virus Vaccine Quad .5 mL IM 6+ MO 2019-06-29 00:00:00 Completed [facility] Influenza Virus Vaccine Quad .5 mL IM 6+ MO 2019-06-29 00:00:00 Completed [facility] Influenza Virus Vaccine Quad .5 mL IM 6+ MO 2019-06-29 00:00:00 Completed [facility] Influenza Virus Vaccine Quad .5 mL IM 6+ MO 2019-06-29 00:00:00 Completed [facility] Influenza Virus Vaccine Quad .5 mL IM 6+ MO 2019-06-29 00:00:00 Completed [facility] Influenza Virus Vaccine Quad .5 mL IM 6+ MO 2019-06-29 00:00:00 Completed [facility] Influenza Virus Vaccine Quad .5 mL IM 6+ MO 2019-06-29 00:00:00 Completed [facility] Influenza Virus Vaccine Quad .5 mL IM 6+ MO 2019-06-29 00:00:00 Completed [facility] Influenza Virus Vaccine Quad .5 mL IM 6+ MO 2019-06-29 00:00:00 Completed [facility] Influenza Virus Vaccine Quad .5 mL IM 6+ MO 2019-06-29 00:00:00 Completed [facility] Influenza Virus Vaccine Quad .5 mL IM 6+ MO 2019-06-29 00:00:00 Completed [facility] Influenza Virus Vaccine Quad .5 mL IM 6+ MO 2019-06-29 00:00:00 Completed [facility] TDAP (ADACEL) VACCINE 2019-05-27 00:00:00 Completed [facility] TDAP (ADACEL) VACCINE 2019-05-27 00:00:00 Completed [facility] TDAP (ADACEL) VACCINE 2019-05-27 00:00:00 Completed [facility] TDAP (ADACEL) VACCINE 2019-05-27 00:00:00 Completed [facility] TDAP (ADACEL) VACCINE 2019-05-27 00:00:00 Completed [facility] TDAP (ADACEL) VACCINE 2019-05-27 00:00:00 Completed [facility] TDAP (ADACEL) VACCINE 2019-05-27 00:00:00 Completed [facility] TDAP (ADACEL) VACCINE 2019-05-27 00:00:00 Completed [facility] TDAP (ADACEL) VACCINE 2019-05-27 00:00:00 Completed [facility] TDAP (ADACEL) VACCINE 2019-05-27 00:00:00 Completed [facility] TDAP (ADACEL) VACCINE 2019-05-27 00:00:00 Completed [facility] TDAP (ADACEL) VACCINE 2019-05-27 00:00:00 Completed [facility] TDAP (ADACEL) VACCINE 2019-05-27 00:00:00 Completed [facility] TDAP (ADACEL) VACCINE 2019-05-27 00:00:00 Completed [facility] TDAP (ADACEL) VACCINE 2019-05-27 00:00:00 Completed [facility] TDAP (ADACEL) VACCINE 2019-05-27 00:00:00 Completed [facility] TDAP (ADACEL) VACCINE 2019-05-27 00:00:00 Completed [facility] TDAP (ADACEL) VACCINE 2019-05-27 00:00:00 Completed [facility] TDAP (ADACEL) VACCINE 2019-05-27 00:00:00 Completed [facility] TDAP (ADACEL) VACCINE 2019-05-27 00:00:00 Completed [facility] TDAP (ADACEL) VACCINE 2019-05-27 00:00:00 Completed [facility] TDAP (ADACEL) VACCINE 2019-05-27 00:00:00 Completed [facility] TDAP (ADACEL) VACCINE 2019-05-27 00:00:00 Completed [facility] TDAP (ADACEL) VACCINE 2019-05-27 00:00:00 Completed [facility] TDAP (ADACEL) VACCINE 2019-05-27 00:00:00 Completed [facility] TDAP (ADACEL) VACCINE 2019-04-01 00:00:00 Completed [facility] TDAP (ADACEL) VACCINE 2019-04-01 00:00:00 Completed [facility] TDAP (ADACEL) VACCINE 2019-04-01 00:00:00 Completed [facility] TDAP (ADACEL) VACCINE 2019-04-01 00:00:00 Completed [facility] TDAP (ADACEL) VACCINE 2019-04-01 00:00:00 Completed [facility] TDAP (ADACEL) VACCINE 2019-04-01 00:00:00 Completed [facility] TDAP (ADACEL) VACCINE 2019-04-01 00:00:00 Completed [facility] TDAP (ADACEL) VACCINE 2019-04-01 00:00:00 Completed [facility] TDAP (ADACEL) VACCINE 2019-04-01 00:00:00 Completed [facility] TDAP (ADACEL) VACCINE 2019-04-01 00:00:00 Completed [facility] TDAP (ADACEL) VACCINE 2019-04-01 00:00:00 Completed [facility] TDAP (ADACEL) VACCINE 2019-04-01 00:00:00 Completed [facility] TDAP (ADACEL) VACCINE 2019-04-01 00:00:00 Completed [facility] TDAP (ADACEL) VACCINE 2019-04-01 00:00:00 Completed [facility] TDAP (ADACEL) VACCINE 2019-04-01 00:00:00 Completed [facility] TDAP (ADACEL) VACCINE 2019-04-01 00:00:00 Completed [facility] TDAP (ADACEL) VACCINE 2019-04-01 00:00:00 Completed [facility] TDAP (ADACEL) VACCINE 2019-04-01 00:00:00 Completed [facility] TDAP (ADACEL) VACCINE 2019-04-01 00:00:00 Completed [facility] TDAP (ADACEL) VACCINE 2019-04-01 00:00:00 Completed [facility] TDAP (ADACEL) VACCINE 2019-04-01 00:00:00 Completed [facility] TDAP (ADACEL) VACCINE 2019-04-01 00:00:00 Completed [facility] TDAP (ADACEL) VACCINE 2019-04-01 00:00:00 Completed [facility] TDAP (ADACEL) VACCINE 2019-04-01 00:00:00 Completed [facility] TDAP (ADACEL) VACCINE 2019-04-01 00:00:00 Completed [facility] TDAP (ADACEL) VACCINE 2019-04-01 00:00:00 Completed [facility] TDAP (ADACEL) VACCINE 2019-04-01 00:00:00 Completed [facility] TDAP (ADACEL) VACCINE 2019-04-01 00:00:00 Completed [facility] TDAP (ADACEL) VACCINE 2019-04-01 00:00:00 Completed [facility] TDAP (ADACEL) VACCINE 2019-04-01 00:00:00 Completed [facility] TDAP (ADACEL) VACCINE 2019-04-01 00:00:00 Completed [facility] TDAP (ADACEL) VACCINE 2019-04-01 00:00:00 Completed [facility] TDAP (ADACEL) VACCINE 2019-04-01 00:00:00 Completed [facility] TDAP (ADACEL) VACCINE 2019-04-01 00:00:00 Completed [facility] TDAP (ADACEL) VACCINE 2019-04-01 00:00:00 Completed [facility] TDAP (ADACEL) VACCINE 2019-04-01 00:00:00 Completed [facility] TDAP (ADACEL) VACCINE 2019-04-01 00:00:00 Completed [facility] Influenza Virus Vaccine Quad .5 mL IM 6+ MO 2019-01-04 00:00:00 Completed [facility] Influenza Virus Vaccine Quad .5 mL IM 6+ MO 2019-01-04 00:00:00 Completed [facility] Influenza Virus Vaccine Quad .5 mL IM 6+ MO 2019-01-04 00:00:00 Completed [facility] Influenza Virus Vaccine Quad .5 mL IM 6+ MO 2019-01-04 00:00:00 Completed [facility] Influenza Virus Vaccine Quad .5 mL IM 6+ MO 2019-01-04 00:00:00 Completed [facility] Influenza Virus Vaccine Quad .5 mL IM 6+ MO (FLUZONE/FLULAVAL/FL UARIX) 2019-01-04 00:00:00 Completed [facility] Influenza Virus Vaccine Quad .5 mL IM 6+ MO (FLUZONE/FLULAVAL/FL UARIX) 2019-01-04 00:00:00 Completed [facility] Influenza Virus Vaccine Quad .5 mL IM 6+ MO (FLUZONE/FLULAVAL/FL UARIX) 2019-01-04 00:00:00 Completed [facility] Influenza Virus Vaccine Quad .5 mL IM 6+ MO (FLUZONE/FLULAVAL/FL UARIX) 2019-01-04 00:00:00 Completed [facility] Influenza Virus Vaccine Quad .5 mL IM 6+ MO 2019-01-04 00:00:00 Completed [facility] Influenza Virus Vaccine Quad .5 mL IM 6+ MO 2019-01-04 00:00:00 Completed [facility] Influenza Virus Vaccine Quad .5 mL IM 6+ MO 2019-01-04 00:00:00 Completed [facility] Influenza Virus Vaccine Quad .5 mL IM 6+ MO 2019-01-04 00:00:00 Completed [facility] Influenza Virus Vaccine Quad .5 mL IM 6+ MO 2019-01-04 00:00:00 Completed [facility] Influenza Virus Vaccine Quad .5 mL IM 6+ MO 2019-01-04 00:00:00 Completed [facility] Influenza Virus Vaccine Quad .5 mL IM 6+ MO 2019-01-04 00:00:00 Completed [facility] Influenza Virus Vaccine Quad .5 mL IM 6+ MO 2019-01-04 00:00:00 Completed [facility] Influenza Virus Vaccine Quad .5 mL IM 6+ MO 2019-01-04 00:00:00 Completed [facility] Influenza Virus Vaccine Quad .5 mL IM 6+ MO 2019-01-04 00:00:00 Completed [facility] Influenza Virus Vaccine Quad .5 mL IM 6+ MO 2019-01-04 00:00:00 Completed [facility] Influenza Virus Vaccine Quad .5 mL IM 6+ MO 2019-01-04 00:00:00 Completed [facility] Influenza Virus Vaccine Quad .5 mL IM 6+ MO 2019-01-04 00:00:00 Completed [facility] Influenza Virus Vaccine Quad .5 mL IM 6+ MO 2019-01-04 00:00:00 Completed [facility] Influenza Virus Vaccine Quad .5 mL IM 6+ MO 2019-01-04 00:00:00 Completed [facility] Influenza Virus Vaccine Quad .5 mL IM 6+ MO 2019-01-04 00:00:00 Completed [facility] Influenza Virus Vaccine Quad .5 mL IM 6+ MO 2019-01-04 00:00:00 Completed [facility] Influenza Virus Vaccine Quad .5 mL IM 6+ MO 2019-01-04 00:00:00 Completed [facility] Influenza Virus Vaccine Quad .5 mL IM 6+ MO 2019-01-04 00:00:00 Completed [facility] Influenza Virus Vaccine Quad .5 mL IM 6+ MO 2019-01-04 00:00:00 Completed [facility] Influenza Virus Vaccine Quad .5 mL IM 6+ MO 2019-01-04 00:00:00 Completed [facility] Influenza Virus Vaccine Quad .5 mL IM 6+ MO 2019-01-04 00:00:00 Completed [facility] Influenza Virus Vaccine Quad .5 mL IM 6+ MO 2019-01-04 00:00:00 Completed [facility] Influenza Virus Vaccine Quad .5 mL IM 6+ MO 2019-01-04 00:00:00 Completed [facility] Influenza Virus Vaccine Quad .5 mL IM 6+ MO 2019-01-04 00:00:00 Completed [facility] Influenza Virus Vaccine Quad .5 mL IM 6+ MO 2019-01-04 00:00:00 Completed [facility] Influenza Virus Vaccine Quad .5 mL IM 6+ MO 2019-01-04 00:00:00 Completed [facility] Influenza Virus Vaccine Quad .5 mL IM 6+ MO 2019-01-04 00:00:00 Completed [facility] HPV 2015-04-13 00:00:00 Completed [facility] Meningococcal Polysaccharide (groups A, C, Y and W-135) conjugate vaccine (MCV4P) 2015-04-13 00:00:00 Completed [facility] TDAP (ADACEL) VACCINE 2015-04-13 00:00:00 Completed [facility] HPV 2015-04-13 00:00:00 Completed [facility] Meningococcal Polysaccharide (groups A, C, Y and W-135) conjugate vaccine (MCV4P) 2015-04-13 00:00:00 Completed [facility] TDAP (ADACEL) VACCINE 2015-04-13 00:00:00 Completed [facility] HPV 2015-04-13 00:00:00 Completed [facility] HPV 2015-04-13 00:00:00 Completed [facility] Meningococcal Polysaccharide (groups A, C, Y and W-135) conjugate vaccine (MCV4P) 2015-04-13 00:00:00 Completed [facility] TDAP (ADACEL) VACCINE 2015-04-13 00:00:00 Completed [facility] Meningococcal Polysaccharide (groups A, C, Y and W-135) conjugate vaccine (MCV4P) 2015-04-13 00:00:00 Completed [facility] TDAP (ADACEL) VACCINE 2015-04-13 00:00:00 Completed [facility] HPV 2015-04-13 00:00:00 Completed [facility] Meningococcal Polysaccharide (groups A, C, Y and W-135) conjugate vaccine (MCV4P) 2015-04-13 00:00:00 Completed [facility] TDAP (ADACEL) VACCINE 2015-04-13 00:00:00 Completed [facility] HPV 2015-04-13 00:00:00 [facility] [facility] Meningococcal Polysaccharide (groups A, C, Y and W-135) conjugate vaccine (MCV4P) 2015-04-13 00:00:00 [facility]pleted [facility] TDAP (ADACEL) VACCINE 2015-04-13 00:00:00 Completed [facility] HPV 2015-04-13 00:00:00 Completed [facility] Meningococcal Polysaccharide (groups A, C, Y and W-135) conjugate vaccine (MCV4P) 2015-04-13 00:00:00 Completed [facility] TDAP (ADACEL) VACCINE 2015-04-13 00:00:00 Completed [facility] HPV 2015-04-13 00:00:00 Completed [facility] Meningococcal Polysaccharide (groups A, C, Y and W-135) conjugate vaccine (MCV4P) 2015-04-13 00:00:00 Completed [facility] TDAP (ADACEL) VACCINE 2015-04-13 00:00:00 Completed [facility] HPV 2015-04-13 00:00:00 Completed [facility] Meningococcal Polysaccharide (groups A, C, Y and W-135) conjugate vaccine (MCV4P) 2015-04-13 00:00:00 Completed [facility] TDAP (ADACEL) VACCINE 2015-04-13 00:00:00 Completed [facility] HPV 2015-04-13 00:00:00 Completed [facility] Meningococcal Polysaccharide (groups A, C, Y and W-135) conjugate vaccine (MCV4P) 2015-04-13 00:00:00 Completed [facility] TDAP (ADACEL) VACCINE 2015-04-13 00:00:00 Completed [facility] HPV 2015-04-13 00:00:00 Completed [facility] Meningococcal Polysaccharide (groups A, C, Y and W-135) conjugate vaccine (MCV4P) 2015-04-13 00:00:00 Completed [facility] TDAP (ADACEL) VACCINE 2015-04-13 00:00:00 Completed [facility] HPV 2015-04-13 00:00:00 Completed [facility] Meningococcal Polysaccharide (groups A, C, Y and W-135) conjugate vaccine (MCV4P) 2015-04-13 00:00:00 Completed [facility] TDAP (ADACEL) VACCINE 2015-04-13 00:00:00 Completed [facility] HPV 2015-04-13 00:00:00 Completed [facility] Meningococcal Polysaccharide (groups A, C, Y and W-135) conjugate vaccine (MCV4P) 2015-04-13 00:00:00 Completed [facility] TDAP (ADACEL) VACCINE 2015-04-13 00:00:00 Completed [facility] HPV 2015-04-13 00:00:00 Completed [facility] Meningococcal Polysaccharide (groups A, C, Y and W-135) conjugate vaccine (MCV4P) 2015-04-13 00:00:00 Completed [facility] TDAP (ADACEL) VACCINE 2015-04-13 00:00:00 Completed [facility] HPV 2015-04-13 00:00:00 Completed [facility] Meningococcal Polysaccharide (groups A, C, Y and W-135) conjugate vaccine (MCV4P) 2015-04-13 00:00:00 Completed [facility] TDAP (ADACEL) VACCINE 2015-04-13 00:00:00 Completed [facility] HPV 2015-04-13 00:00:00 Completed [facility] Meningococcal Polysaccharide (groups A, C, Y and W-135) conjugate vaccine (MCV4P) 2015-04-13 00:00:00 Completed [facility] TDAP (ADACEL) VACCINE 2015-04-13 00:00:00 Completed [facility] HPV 2015-04-13 00:00:00 Completed [facility] Meningococcal Polysaccharide (groups A, C, Y and W-135) conjugate vaccine (MCV4P) 2015-04-13 00:00:00 Completed [facility] TDAP (ADACEL) VACCINE 2015-04-13 00:00:00 Completed [facility] HPV 2015-04-13 00:00:00 Completed [facility] Meningococcal Polysaccharide (groups A, C, Y and W-135) conjugate vaccine (MCV4P) 2015-04-13 00:00:00 Completed [facility] TDAP (ADACEL) VACCINE 2015-04-13 00:00:00 Completed [facility] HPV 2015-04-13 00:00:00 Completed [facility] Meningococcal Polysaccharide (groups A, C, Y and W-135) conjugate vaccine (MCV4P) 2015-04-13 00:00:00 Completed [facility] HPV 2015-04-13 00:00:00 Completed [facility] Meningococcal Polysaccharide (groups A, C, Y and W-135) conjugate vaccine (MCV4P) 2015-04-13 00:00:00 Completed [facility] TDAP (ADACEL) VACCINE 2015-04-13 00:00:00 Completed [facility] TDAP (ADACEL) VACCINE 2015-04-13 00:00:00 Completed [facility] HPV 2015-04-13 00:00:00 Completed [facility] Meningococcal Polysaccharide (groups A, C, Y and W-135) conjugate vaccine (MCV4P) 2015-04-13 00:00:00 Completed [facility] TDAP (ADACEL) VACCINE 2015-04-13 00:00:00 Completed [facility] HPV 2015-04-13 00:00:00 Completed [facility] Meningococcal Polysaccharide (groups A, C, Y and W-135) conjugate vaccine (MCV4P) 2015-04-13 00:00:00 Completed [facility] TDAP (ADACEL) VACCINE 2015-04-13 00:00:00 Completed [facility] HPV 2015-04-13 00:00:00 Completed [facility] Meningococcal Polysaccharide (groups A, C, Y and W-135) conjugate vaccine (MCV4P) 2015-04-13 00:00:00 Completed [facility] TDAP (ADACEL) VACCINE 2015-04-13 00:00:00 Completed [facility] HPV 2015-04-13 00:00:00 Completed [facility] Meningococcal Polysaccharide (groups A, C, Y and W-135) conjugate vaccine (MCV4P) 2015-04-13 00:00:00 Completed [facility] TDAP (ADACEL) VACCINE 2015-04-13 00:00:00 Completed [facility] HPV 2015-04-13 00:00:00 Completed [facility] Meningococcal Polysaccharide (groups A, C, Y and W-135) conjugate vaccine (MCV4P) 2015-04-13 00:00:00 Completed [facility] TDAP (ADACEL) VACCINE 2015-04-13 00:00:00 Completed [facility] HPV 2015-04-13 00:00:00 Completed [facility] Meningococcal Polysaccharide (groups A, C, Y and W-135) conjugate vaccine (MCV4P) 2015-04-13 00:00:00 Completed [facility] TDAP (ADACEL) VACCINE 2015-04-13 00:00:00 Completed [facility] HPV 2015-04-13 00:00:00 Completed [facility] Meningococcal Polysaccharide (groups A, C, Y and W-135) conjugate vaccine (MCV4P) 2015-04-13 00:00:00 Completed [facility] TDAP (ADACEL) VACCINE 2015-04-13 00:00:00 Completed [facility] HPV 2015-04-13 00:00:00 Completed [facility] Meningococcal Polysaccharide (groups A, C, Y and W-135) conjugate vaccine (MCV4P) 2015-04-13 00:00:00 Completed [facility] HPV 2015-04-13 00:00:00 Completed [facility] Meningococcal Polysaccharide (groups A, C, Y and W-135) conjugate vaccine (MCV4P) 2015-04-13 00:00:00 Completed [facility] TDAP (ADACEL) VACCINE 2015-04-13 00:00:00 Completed [facility] TDAP (ADACEL) VACCINE 2015-04-13 00:00:00 Completed [facility] HPV 2015-04-13 00:00:00 Completed [facility] Meningococcal Polysaccharide (groups A, C, Y and W-135) conjugate vaccine (MCV4P) 2015-04-13 00:00:00 Completed [facility] TDAP (ADACEL) VACCINE 2015-04-13 00:00:00 Completed [facility] HPV 2015-04-13 00:00:00 Completed [facility] Meningococcal Polysaccharide (groups A, C, Y and W-135) conjugate vaccine (MCV4P) 2015-04-13 00:00:00 Completed [facility] TDAP (ADACEL) VACCINE 2015-04-13 00:00:00 Completed [facility] HPV 2015-04-13 00:00:00 Completed [facility] Meningococcal Polysaccharide (groups A, C, Y and W-135) conjugate vaccine (MCV4P) 2015-04-13 00:00:00 Completed [facility] TDAP (ADACEL) VACCINE 2015-04-13 00:00:00 Completed [facility] HPV 2015-04-13 00:00:00 Completed [facility] Meningococcal Polysaccharide (groups A, C, Y and W-135) conjugate vaccine (MCV4P) 2015-04-13 00:00:00 Completed [facility] TDAP (ADACEL) VACCINE 2015-04-13 00:00:00 Completed [facility] HPV 2015-04-13 00:00:00 Completed [facility] Meningococcal Polysaccharide (groups A, C, Y and W-135) conjugate vaccine (MCV4P) 2015-04-13 00:00:00 Completed [facility] TDAP (ADACEL) VACCINE 2015-04-13 00:00:00 Completed [facility] HPV 2015-04-13 00:00:00 Completed [facility] Meningococcal Polysaccharide (groups A, C, Y and W-135) conjugate vaccine (MCV4P) 2015-04-13 00:00:00 Completed [facility] TDAP (ADACEL) VACCINE 2015-04-13 00:00:00 Completed [facility] HPV 2015-04-13 00:00:00 Completed [facility] Meningococcal Polysaccharide (groups A, C, Y and W-135) conjugate vaccine (MCV4P) 2015-04-13 00:00:00 Completed [facility] TDAP (ADACEL) VACCINE 2015-04-13 00:00:00 Completed [facility] HPV 2015-04-13 00:00:00 Completed [facility] Meningococcal Polysaccharide (groups A, C, Y and W-135) conjugate vaccine (MCV4P) 2015-04-13 00:00:00 Completed [facility] TDAP (ADACEL) VACCINE 2015-04-13 00:00:00 Completed [facility] HPV, quadrivalent HPV, quadrivalent 2015-04-13 00:00:00 Completed [facility] meningococcal MCV4P meningococcal MCV4P 00:00:00 Completed [facility] Tdap Tdap 2015-04-13 00:00:00 Completed [facility] HPV 2012-06-29 00:00:00 Completed [facility] HPV 2012-06-29 00:00:00 Completed [facility] HPV 2012-06-29 00:00:00 Completed [facility] HPV 2012-06-29 00:00:00 Completed [facility] HPV 2012-06-29 00:00:00 Completed [facility] HPV 2012-06-29 00:00:00 Completed [facility] HPV 2012-06-29 00:00:00 Completed [facility] HPV 2012-06-29 00:00:00 Completed [facility] HPV 2012-06-29 00:00:00 Completed [facility] HPV 2012-06-29 00:00:00 Completed [facility] HPV 2012-06-29 00:00:00 Completed [facility] HPV 2012-06-29 00:00:00 Completed [facility] HPV 2012-06-29 00:00:00 Completed [facility] HPV 2012-06-29 00:00:00 Completed [facility] HPV 2012-06-29 00:00:00 Completed [facility] HPV 2012-06-29 00:00:00 Completed [facility] HPV 2012-06-29 00:00:00 Completed [facility] HPV 2012-06-29 00:00:00 Completed [facility] HPV 2012-06-29 00:00:00 Completed [facility] HPV 2012-06-29 00:00:00 Completed [facility] HPV 2012-06-29 00:00:00 Completed [facility] HPV 2012-06-29 00:00:00 Completed [facility] HPV 2012-06-29 00:00:00 Completed [facility] HPV 2012-06-29 00:00:00 Completed [facility] HPV, quadrivalent HPV, quadrivalent 2012-06-29 00:00:00 Completed [facility] Tetanus/Diptheria 2009-12-12 00:00:00 Completed [facility] Meningococcal Polysaccharide (groups A, C, Y and W-135) conjugate vaccine (MCV4P) 2009-12-12 00:00:00 Completed [facility] Varicella (varivax)(chicken pox) 2009-12-12 00:00:00 Completed [facility] HEPATITIS A 2009-12-12 00:00:00 Completed [facility] Tetanus/Diptheria 2009-12-12 00:00:00 Completed [facility] Meningococcal Polysaccharide (groups A, C, Y and W-135) conjugate vaccine (MCV4P) 2009-12-12 00:00:00 Completed [facility] Varicella (varivax)(chicken pox) 2009-12-12 00:00:00 Completed [facility] HEPATITIS A 2009-12-12 00:00:00 Completed [facility] Tetanus/Diptheria 2009-12-12 00:00:00 Completed [facility] Meningococcal Polysaccharide (groups A, C, Y and W-135) conjugate vaccine (MCV4P) 2009-12-12 00:00:00 Completed [facility] Varicella (varivax)(chicken pox) 2009-12-12 00:00:00 Completed [facility] HEPATITIS A 2009-12-12 00:00:00 Completed [facility] Tetanus/Diptheria 2009-12-12 00:00:00 Completed [facility] Meningococcal Polysaccharide (groups A, C, Y and W-135) conjugate vaccine (MCV4P) 2009-12-12 00:00:00 Completed [facility] Varicella (varivax)(chicken pox) 2009-12-12 00:00:00 Completed [facility] HEPATITIS A 2009-12-12 00:00:00 Completed [facility] Tetanus/Diptheria 2009-12-12 00:00:00 Completed [facility] Meningococcal Polysaccharide (groups A, C, Y and W-135) conjugate vaccine (MCV4P) 2009-12-12 00:00:00 Completed [facility] Varicella (varivax)(chicken pox) 2009-12-12 00:00:00 Completed [facility] HEPATITIS A 2009-12-12 00:00:00 Completed [facility] Tetanus/Diptheria 2009-12-12 00:00:00 Completed [facility] Meningococcal Polysaccharide (groups A, C, Y and W-135) conjugate vaccine (MCV4P) 2009-12-12 00:00:00 Completed [facility] Varicella (varivax)(chicken pox) 2009-12-12 00:00:00 Completed [facility] HEPATITIS A 2009-12-12 00:00:00 Completed [facility] Tetanus/Diptheria 2009-12-12 00:00:00 Completed [facility] Meningococcal Polysaccharide (groups A, C, Y and W-135) conjugate vaccine (MCV4P) 2009-12-12 00:00:00 Completed [facility] Varicella (varivax)(chicken pox) 2009-12-12 00:00:00 Completed [facility] HEPATITIS A 2009-12-12 00:00:00 Completed [facility] Tetanus/Diptheria 2009-12-12 00:00:00 Completed [facility] Meningococcal Polysaccharide (groups A, C, Y and W-135) conjugate vaccine (MCV4P) 2009-12-12 00:00:00 Completed [facility] Varicella (varivax)(chicken pox) 2009-12-12 00:00:00 Completed [facility] HEPATITIS A 2009-12-12 00:00:00 Completed [facility] Tetanus/Diptheria 2009-12-12 00:00:00 Completed [facility] Meningococcal Polysaccharide (groups A, C, Y and W-135) conjugate vaccine (MCV4P) 2009-12-12 00:00:00 Completed [facility] Varicella (varivax)(chicken pox) 2009-12-12 00:00:00 Completed [facility] Meningococcal Polysaccharide (groups A, C, Y and W-135) conjugate vaccine (MCV4P) 2009-12-12 00:00:00 Completed [facility] Varicella (varivax)(chicken pox) 2009-12-12 00:00:00 Completed [facility] Meningococcal Polysaccharide (groups A, C, Y and W-135) conjugate vaccine (MCV4P) 2009-12-12 00:00:00 Completed [facility] Varicella (varivax)(chicken pox) 2009-12-12 00:00:00 Completed [facility] Meningococcal Polysaccharide (groups A, C, Y and W-135) conjugate vaccine (MCV4P) 2009-12-12 00:00:00 Completed [facility] Varicella (varivax)(chicken pox) 2009-12-12 00:00:00 Completed [facility] HEPATITIS A 2009-12-12 00:00:00 Completed [facility] Tetanus/Diptheria 2009-12-12 00:00:00 Completed [facility] Meningococcal Polysaccharide (groups A, C, Y and W-135) conjugate vaccine (MCV4P) 2009-12-12 00:00:00 Completed [facility] Varicella (varivax)(chicken pox) 2009-12-12 00:00:00 Completed [facility] HEPATITIS A 2009-12-12 00:00:00 Completed [facility] Tetanus/Diptheria 2009-12-12 00:00:00 Completed [facility] Meningococcal Polysaccharide (groups A, C, Y and W-135) conjugate vaccine (MCV4P) 2009-12-12 00:00:00 Completed [facility] Varicella (varivax)(chicken pox) 2009-12-12 00:00:00 Completed [facility] HEPATITIS A 2009-12-12 00:00:00 Completed [facility] Tetanus/Diptheria 2009-12-12 00:00:00 Completed [facility] Meningococcal Polysaccharide (groups A, C, Y and W-135) conjugate vaccine (MCV4P) 2009-12-12 00:00:00 Completed [facility] Varicella (varivax)(chicken pox) 2009-12-12 00:00:00 Completed [facility] HEPATITIS A 2009-12-12 00:00:00 Completed [facility] Tetanus/Diptheria 2009-12-12 00:00:00 Completed [facility] Meningococcal Polysaccharide (groups A, C, Y and W-135) conjugate vaccine (MCV4P) 2009-12-12 00:00:00 Completed [facility] Varicella (varivax)(chicken pox) 2009-12-12 00:00:00 Completed [facility] HEPATITIS A 2009-12-12 00:00:00 Completed [facility] Tetanus/Diptheria 2009-12-12 00:00:00 Completed [facility] Meningococcal Polysaccharide (groups A, C, Y and W-135) conjugate vaccine (MCV4P) 2009-12-12 00:00:00 Completed [facility] Varicella (varivax)(chicken pox) 2009-12-12 00:00:00 Completed [facility] HEPATITIS A 2009-12-12 00:00:00 Completed [facility] Tetanus/Diptheria 2009-12-12 00:00:00 Completed [facility] Meningococcal Polysaccharide (groups A, C, Y and W-135) conjugate vaccine (MCV4P) 2009-12-12 00:00:00 Completed [facility] Varicella (varivax)(chicken pox) 2009-12-12 00:00:00 Completed [facility] HEPATITIS A 2009-12-12 00:00:00 Completed [facility] Tetanus/Diptheria 2009-12-12 00:00:00 Completed [facility] Meningococcal Polysaccharide (groups A, C, Y and W-135) conjugate vaccine (MCV4P) 2009-12-12 00:00:00 Completed [facility] Varicella (varivax)(chicken pox) 2009-12-12 00:00:00 Completed [facility] HEPATITIS A 2009-12-12 00:00:00 Completed [facility] Tetanus/Diptheria 2009-12-12 00:00:00 Completed [facility] Meningococcal Polysaccharide (groups A, C, Y and W-135) conjugate vaccine (MCV4P) 2009-12-12 00:00:00 [facility]pleted [facility] Varicella (varivax)(chicken pox) 2009-12-12 00:00:00 Completed [facility] HEPATITIS A 2009-12-12 00:00:00 Completed [facility] Tetanus/Diptheria 2009-12-12 00:00:00 Completed [facility] Meningococcal Polysaccharide (groups A, C, Y and W-135) conjugate vaccine (MCV4P) 2009-12-12 00:00:00 Completed [facility] Varicella (varivax)(chicken pox) 2009-12-12 00:00:00 Completed [facility] HEPATITIS A 2009-12-12 00:00:00 Completed [facility] Tetanus/Diptheria 2009-12-12 00:00:00 Completed [facility] Meningococcal Polysaccharide (groups A, C, Y and W-135) conjugate vaccine (MCV4P) 2009-12-12 00:00:00 Completed [facility] Varicella (varivax)(chicken pox) 2009-12-12 00:00:00 Completed [facility] HEPATITIS A 2009-12-12 00:00:00 Completed [facility] Tetanus/Diptheria 2009-12-12 00:00:00 Completed [facility] Meningococcal Polysaccharide (groups A, C, Y and W-135) conjugate vaccine (MCV4P) 2009-12-12 00:00:00 Completed [facility] Varicella (varivax)(chicken pox) 2009-12-12 00:00:00 Completed [facility] HEPATITIS A 2009-12-12 00:00:00 Completed [facility] Tetanus/Diptheria 2009-12-12 00:00:00 Completed [facility] Meningococcal Polysaccharide (groups A, C, Y and W-135) conjugate vaccine (MCV4P) 2009-12-12 00:00:00 Completed [facility] Varicella (varivax)(chicken pox) 2009-12-12 00:00:00 Completed [facility] HEPATITIS A 2009-12-12 00:00:00 Completed [facility] varicella varicella 2009-12-12 00:00:00 Completed [facility] meningococcal MCV4P meningococcal MCV4P 00:00:00 Completed [facility] Hep A, ped/adol, 2 dose Hep A, ped/adol, 2 dose 2009-12-12 00:00:00 Completed [facility] Td (adult), adsorbed Td (adult), adsorbed 2009-12-12 00:00:00 Completed [facility] DTaP, Unspecified Formulation 2003-04-28 00:00:00 Completed [facility] MMR 2003-04-28 00:00:00 Completed [facility] IPV 2003-04-28 00:00:00 Completed [facility] DTaP, Unspecified Formulation 2003-04-28 00:00:00 Completed [facility] MMR 2003-04-28 00:00:00 Completed [facility] IPV 2003-04-28 00:00:00 Completed [facility] DTaP, Unspecified Formulation 2003-04-28 00:00:00 Completed [facility] MMR 2003-04-28 00:00:00 Completed [facility] IPV 2003-04-28 00:00:00 Completed [facility] DTaP, Unspecified Formulation 2003-04-28 00:00:00 Completed [facility] MMR 2003-04-28 00:00:00 Completed [facility] IPV 2003-04-28 00:00:00 Completed [facility] DTaP, Unspecified Formulation 2003-04-28 00:00:00 Completed [facility] MMR 2003-04-28 00:00:00 Completed [facility] IPV 2003-04-28 00:00:00 Completed [facility] DTaP, Unspecified Formulation 2003-04-28 00:00:00 Completed [facility] MMR 2003-04-28 00:00:00 Completed [facility] IPV 2003-04-28 00:00:00 Completed [facility] DTaP, Unspecified Formulation 2003-04-28 00:00:00 Completed [facility] MMR 2003-04-28 00:00:00 Completed [facility] IPV 2003-04-28 00:00:00 Completed [facility] DTaP, Unspecified Formulation 2003-04-28 00:00:00 Completed [facility] MMR 2003-04-28 00:00:00 Completed [facility] IPV 2003-04-28 00:00:00 Completed [facility] DTaP, Unspecified Formulation 2003-04-28 00:00:00 Completed [facility] MMR 2003-04-28 00:00:00 Completed [facility] IPV 2003-04-28 00:00:00 Completed [facility] DTaP, Unspecified Formulation 2003-04-28 00:00:00 Completed [facility] MMR 2003-04-28 00:00:00 Completed [facility] IPV 2003-04-28 00:00:00 Completed [facility] DTaP, Unspecified Formulation 2003-04-28 00:00:00 Completed [facility] MMR 2003-04-28 00:00:00 Completed [facility] IPV 2003-04-28 00:00:00 Completed [facility] DTaP, Unspecified Formulation 2003-04-28 00:00:00 Completed [facility] MMR 2003-04-28 00:00:00 Completed [facility] IPV 2003-04-28 00:00:00 Completed [facility] DTaP, Unspecified Formulation 2003-04-28 00:00:00 Completed [facility] MMR 2003-04-28 00:00:00 Completed [facility] IPV 2003-04-28 00:00:00 Completed [facility] DTaP, Unspecified Formulation 2003-04-28 00:00:00 Completed [facility] MMR 2003-04-28 00:00:00 Completed [facility] IPV 2003-04-28 00:00:00 Completed [facility] DTaP, Unspecified Formulation 2003-04-28 00:00:00 Completed [facility] MMR 2003-04-28 00:00:00 Completed [facility] IPV 2003-04-28 00:00:00 Completed [facility] DTaP, Unspecified Formulation 2003-04-28 00:00:00 Completed [facility] MMR 2003-04-28 00:00:00 Completed [facility] IPV 2003-04-28 00:00:00 Completed [facility] DTaP, Unspecified Formulation 2003-04-28 00:00:00 Completed [facility] MMR 2003-04-28 00:00:00 Completed [facility] IPV 2003-04-28 00:00:00 Completed [facility] DTaP, Unspecified Formulation 2003-04-28 00:00:00 Completed [facility] MMR 2003-04-28 00:00:00 Completed [facility] IPV 2003-04-28 00:00:00 Completed [facility] DTaP, Unspecified Formulation 2003-04-28 00:00:00 Completed [facility] MMR 2003-04-28 00:00:00 Completed [facility] IPV 2003-04-28 00:00:00 Completed [facility] DTaP, Unspecified Formulation 2003-04-28 00:00:00 Completed [facility] MMR 2003-04-28 00:00:00 Completed [facility] IPV 2003-04-28 00:00:00 Completed [facility] DTaP, Unspecified Formulation 2003-04-28 00:00:00 Completed [facility] MMR 2003-04-28 00:00:00 Completed [facility] IPV 2003-04-28 00:00:00 Completed [facility] IPV IPV 2003-04-28 00:00:00 Completed [facility] DTaP, unspecified formul DTaP, unspecified formul 2003-04-28 00:00:00 Completed [facility] MMR MMR 2003-04-28 00:00:00 Completed [facility] HIB 4 Dose Schedule 2002-11-11 00:00:00 Completed [facility] Hep B, Adol or Pedi Dosage 2002-11-11 00:00:00 Completed [facility] MMR 2002-11-11 00:00:00 Completed [facility] DTaP, Unspecified Formulation 2002-11-11 00:00:00 Completed [facility] Polio (IPV/OPV) 2002-11-11 00:00:00 Completed [facility] IPV 2002-11-11 00:00:00 Completed [facility] Varicella (varivax)(chicken pox) 2002-11-11 00:00:00 Completed [facility] DTAP 2002-11-11 00:00:00 Completed [facility] Hep B, Adol or Pedi Dosage 2002-11-11 00:00:00 Completed [facility] HIB 4 Dose Schedule 2002-11-11 00:00:00 Completed [facility] DTaP, Unspecified Formulation 2002-11-11 00:00:00 Completed [facility] Polio (IPV/OPV) 2002-11-11 00:00:00 Completed [facility] IPV 2002-11-11 00:00:00 Completed [facility] MMR 2002-11-11 00:00:00 Completed [facility] Varicella (varivax)(chicken pox) 2002-11-11 00:00:00 Completed [facility] DTaP, Unspecified Formulation 2002-11-11 00:00:00 Completed [facility] IPV 2002-11-11 00:00:00 Completed [facility] DTaP, Unspecified Formulation 2002-11-11 00:00:00 Completed [facility] IPV 2002-11-11 00:00:00 Completed [facility] DTaP, Unspecified Formulation 2002-11-11 00:00:00 Completed [facility] IPV 2002-11-11 00:00:00 Completed [facility] DTAP 2002-11-11 00:00:00 Completed [facility] HIB 4 Dose Schedule 2002-11-11 00:00:00 Completed [facility] Hep B, Adol or Pedi Dosage 2002-11-11 00:00:00 Completed [facility] DTaP, Unspecified Formulation 2002-11-11 00:00:00 Completed [facility] MMR 2002-11-11 00:00:00 Completed [facility] IPV 2002-11-11 00:00:00 Completed [facility] Polio (IPV/OPV) 2002-11-11 00:00:00 Completed [facility] Varicella (varivax)(chicken pox) 2002-11-11 00:00:00 Completed [facility] DTAP 2002-11-11 00:00:00 Completed [facility] Hep B, Adol or Pedi Dosage 2002-11-11 00:00:00 Completed [facility] DTaP, Unspecified Formulation 2002-11-11 00:00:00 Completed [facility] HIB 4 Dose Schedule 2002-11-11 00:00:00 Completed [facility] IPV 2002-11-11 00:00:00 Completed [facility] Polio (IPV/OPV) 2002-11-11 00:00:00 Completed [facility] MMR 2002-11-11 00:00:00 Completed [facility] DTaP, Unspecified Formulation 2002-11-11 00:00:00 Completed [facility] Varicella (varivax)(chicken pox) 2002-11-11 00:00:00 Completed [facility] IPV 2002-11-11 00:00:00 Completed [facility] DTAP 2002-11-11 00:00:00 Completed [facility] HIB 4 Dose Schedule 2002-11-11 00:00:00 Completed [facility] Hep B, Adol or Pedi Dosage 2002-11-11 00:00:00 Completed [facility] MMR 2002-11-11 00:00:00 Completed [facility] Polio (IPV/OPV) 2002-11-11 00:00:00 Completed [facility] Varicella (varivax)(chicken pox) 2002-11-11 00:00:00 Completed [facility] DTAP 2002-11-11 00:00:00 Completed [facility] Hep B, Adol or Pedi Dosage 2002-11-11 00:00:00 Completed [facility] HIB 4 Dose Schedule 2002-11-11 00:00:00 Completed [facility] Polio (IPV/OPV) 2002-11-11 00:00:00 Completed [facility] MMR 2002-11-11 00:00:00 Completed [facility] Varicella (varivax)(chicken pox) 2002-11-11 00:00:00 Completed [facility] DTAP 2002-11-11 00:00:00 Completed [facility] HIB 4 Dose Schedule 2002-11-11 00:00:00 Completed [facility] Hep B, Adol or Pedi Dosage 2002-11-11 00:00:00 Completed [facility] MMR 2002-11-11 00:00:00 Completed [facility] Polio (IPV/OPV) 2002-11-11 00:00:00 Completed [facility] Varicella (varivax)(chicken pox) 2002-11-11 00:00:00 Completed [facility] DTAP 2002-11-11 00:00:00 Completed [facility] Hep B, Adol or Pedi Dosage 2002-11-11 00:00:00 Completed [facility] HIB 4 Dose Schedule 2002-11-11 00:00:00 Completed [facility] Polio (IPV/OPV) 2002-11-11 00:00:00 Completed [facility] MMR 2002-11-11 00:00:00 Completed [facility] Varicella (varivax)(chicken pox) 2002-11-11 00:00:00 Completed [facility] DTAP 2002-11-11 00:00:00 Completed [facility] HIB 4 Dose Schedule 2002-11-11 00:00:00 Completed [facility] Hep B, Adol or Pedi Dosage 2002-11-11 00:00:00 Completed [facility] MMR 2002-11-11 00:00:00 Completed [facility] Polio (IPV/OPV) 2002-11-11 00:00:00 Completed [facility] Varicella (varivax)(chicken pox) 2002-11-11 00:00:00 Completed [facility] DTAP 2002-11-11 00:00:00 Completed [facility] Hep B, Adol or Pedi Dosage 2002-11-11 00:00:00 Completed [facility] HIB 4 Dose Schedule 2002-11-11 00:00:00 Completed [facility] Polio (IPV/OPV) 2002-11-11 00:00:00 Completed [facility] MMR 2002-11-11 00:00:00 Completed [facility] Varicella (varivax)(chicken pox) 2002-11-11 00:00:00 Completed [facility] DTAP 2002-11-11 00:00:00 Completed [facility] HIB 4 Dose Schedule 2002-11-11 00:00:00 Completed [facility] Hep B, Adol or Pedi Dosage 2002-11-11 00:00:00 Completed [facility] MMR 2002-11-11 00:00:00 Completed [facility] Polio (IPV/OPV) 2002-11-11 00:00:00 Completed [facility] Varicella (varivax)(chicken pox) 2002-11-11 00:00:00 Completed [facility] DTAP 2002-11-11 00:00:00 Completed [facility] Hep B, Adol or Pedi Dosage 2002-11-11 00:00:00 Completed [facility] HIB 4 Dose Schedule 2002-11-11 00:00:00 Completed [facility] Polio (IPV/OPV) 2002-11-11 00:00:00 Completed [facility] MMR 2002-11-11 00:00:00 Completed [facility] Varicella (varivax)(chicken pox) 2002-11-11 00:00:00 Completed [facility] DTAP 2002-11-11 00:00:00 Completed [facility] DTAP 2002-11-11 00:00:00 Completed [facility] HIB 4 Dose Schedule 2002-11-11 00:00:00 Completed [facility] HIB 4 Dose Schedule 2002-11-11 00:00:00 Completed [facility] Hep B, Adol or Pedi Dosage 2002-11-11 00:00:00 Completed [facility] MMR 2002-11-11 00:00:00 Completed [facility] Polio (IPV/OPV) 2002-11-11 00:00:00 Completed [facility] Varicella (varivax)(chicken pox) 2002-11-11 00:00:00 Completed [facility] DTAP 2002-11-11 00:00:00 Completed [facility] Hep B, Adol or Pedi Dosage 2002-11-11 00:00:00 Completed [facility] HIB 4 Dose Schedule 2002-11-11 00:00:00 Completed [facility] Polio (IPV/OPV) 2002-11-11 00:00:00 Completed [facility] MMR 2002-11-11 00:00:00 Completed [facility] Hep B, Adol or Pedi Dosage 2002-11-11 00:00:00 Completed [facility] Varicella (varivax)(chicken pox) 2002-11-11 00:00:00 Completed [facility] MMR 2002-11-11 00:00:00 Completed [facility] DTAP 2002-11-11 00:00:00 Completed [facility] HIB 4 Dose Schedule 2002-11-11 00:00:00 Completed [facility] Hep B, Adol or Pedi Dosage 2002-11-11 00:00:00 Completed [facility] MMR 2002-11-11 00:00:00 Completed [facility] Polio (IPV/OPV) 2002-11-11 00:00:00 Completed [facility] Varicella (varivax)(chicken pox) 2002-11-11 00:00:00 Completed [facility] Polio (IPV/OPV) 2002-11-11 00:00:00 Completed [facility] DTAP 2002-11-11 00:00:00 Completed [facility] Hep B, Adol or Pedi Dosage 2002-11-11 00:00:00 Completed [facility] HIB 4 Dose Schedule 2002-11-11 00:00:00 Completed [facility] Polio (IPV/OPV) 2002-11-11 00:00:00 Completed [facility] MMR 2002-11-11 00:00:00 Completed [facility] Varicella (varivax)(chicken pox) 2002-11-11 00:00:00 Completed [facility] Varicella (varivax)(chicken pox) 2002-11-11 00:00:00 Completed [facility] DTAP 2002-11-11 00:00:00 Completed [facility] DTAP 2002-11-11 00:00:00 Completed [facility] HIB 4 Dose Schedule 2002-11-11 00:00:00 Completed [facility] Hep B, Adol or Pedi Dosage 2002-11-11 00:00:00 Completed [facility] MMR 2002-11-11 00:00:00 Completed [facility] Polio (IPV/OPV) 2002-11-11 00:00:00 Completed [facility] Varicella (varivax)(chicken pox) 2002-11-11 00:00:00 Completed [facility] DTAP 2002-11-11 00:00:00 Completed [facility] Hep B, Adol or Pedi Dosage 2002-11-11 00:00:00 Completed [facility] HIB 4 Dose Schedule 2002-11-11 00:00:00 Completed [facility] Hep B, Adol or Pedi Dosage 2002-11-11 00:00:00 Completed [facility] Polio (IPV/OPV) 2002-11-11 00:00:00 Completed [facility] MMR 2002-11-11 00:00:00 Completed [facility] Varicella (varivax)(chicken pox) 2002-11-11 00:00:00 Completed [facility] HIB 4 Dose Schedule 2002-11-11 00:00:00 Completed [facility] DTAP 2002-11-11 00:00:00 Completed [facility] HIB 4 Dose Schedule 2002-11-11 00:00:00 Completed [facility] Hep B, Adol or Pedi Dosage 2002-11-11 00:00:00 Completed [facility] MMR 2002-11-11 00:00:00 Completed [facility] Polio (IPV/OPV) 2002-11-11 00:00:00 Completed [facility] Varicella (varivax)(chicken pox) 2002-11-11 00:00:00 Completed [facility] Polio (IPV/OPV) 2002-11-11 00:00:00 Completed [facility] DTAP 2002-11-11 00:00:00 Completed [facility] Hep B, Adol or Pedi Dosage 2002-11-11 00:00:00 Completed [facility] HIB 4 Dose Schedule 2002-11-11 00:00:00 Completed [facility] Polio (IPV/OPV) 2002-11-11 00:00:00 Completed [facility] MMR 2002-11-11 00:00:00 Completed [facility] Varicella (varivax)(chicken pox) 2002-11-11 00:00:00 Completed [facility] MMR 2002-11-11 00:00:00 Completed [facility] Varicella (varivax)(chicken pox) 2002-11-11 00:00:00 Completed [facility] DTAP 2002-11-11 00:00:00 Completed [facility] HIB 4 Dose Schedule 2002-11-11 00:00:00 Completed [facility] Hep B, Adol or Pedi Dosage 2002-11-11 00:00:00 Completed [facility] MMR 2002-11-11 00:00:00 Completed [facility] Polio (IPV/OPV) 2002-11-11 00:00:00 Completed [facility] Varicella (varivax)(chicken pox) 2002-11-11 00:00:00 Completed [facility] DTAP 2002-11-11 00:00:00 Completed [facility] Hep B, Adol or Pedi Dosage 2002-11-11 00:00:00 Completed [facility] HIB 4 Dose Schedule 2002-11-11 00:00:00 Completed [facility] Polio (IPV/OPV) 2002-11-11 00:00:00 Completed [facility] MMR 2002-11-11 00:00:00 Completed [facility] Varicella (varivax)(chicken pox) 2002-11-11 00:00:00 Completed [facility] DTAP 2002-11-11 00:00:00 Completed [facility] HIB 4 Dose Schedule 2002-11-11 00:00:00 Completed [facility] Hep B, Adol or Pedi Dosage 2002-11-11 00:00:00 Completed [facility] MMR 2002-11-11 00:00:00 Completed [facility] Polio (IPV/OPV) 2002-11-11 00:00:00 Completed [facility] Varicella (varivax)(chicken pox) 2002-11-11 00:00:00 Completed [facility] DTAP 2002-11-11 00:00:00 Completed [facility] Hep B, Adol or Pedi Dosage 2002-11-11 00:00:00 Completed [facility] HIB 4 Dose Schedule 2002-11-11 00:00:00 Completed [facility] Polio (IPV/OPV) 2002-11-11 00:00:00 Completed [facility] MMR 2002-11-11 00:00:00 Completed [facility] Varicella (varivax)(chicken pox) 2002-11-11 00:00:00 Completed [facility] DTAP 2002-11-11 00:00:00 Completed [facility] HIB 4 Dose Schedule 2002-11-11 00:00:00 Completed [facility] Hep B, Adol or Pedi Dosage 2002-11-11 00:00:00 Completed [facility] MMR 2002-11-11 00:00:00 Completed [facility] Polio (IPV/OPV) 2002-11-11 00:00:00 Completed [facility] Varicella (varivax)(chicken pox) 2002-11-11 00:00:00 Completed [facility] DTAP 2002-11-11 00:00:00 Completed [facility] Hep B, Adol or Pedi Dosage 2002-11-11 00:00:00 Completed [facility] HIB 4 Dose Schedule 2002-11-11 00:00:00 Completed [facility] Polio (IPV/OPV) 2002-11-11 00:00:00 Completed [facility] MMR 2002-11-11 00:00:00 Completed [facility] Varicella (varivax)(chicken pox) 2002-11-11 00:00:00 Completed [facility] DTaP, Unspecified Formulation 2002-11-11 00:00:00 Completed [facility] IPV 2002-11-11 00:00:00 Completed [facility] DTAP 2002-11-11 00:00:00 Completed [facility] HIB 4 Dose Schedule 2002-11-11 00:00:00 Completed [facility] DTaP, Unspecified Formulation 2002-11-11 00:00:00 Completed [facility] IPV 2002-11-11 00:00:00 Completed [facility] Hep B, Adol or Pedi Dosage 2002-11-11 00:00:00 Completed [facility] MMR 2002-11-11 00:00:00 Completed [facility] Polio (IPV/OPV) 2002-11-11 00:00:00 Completed [facility] DTaP, Unspecified Formulation 2002-11-11 00:00:00 Completed [facility] Varicella (varivax)(chicken pox) 2002-11-11 00:00:00 Completed [facility] IPV 2002-11-11 00:00:00 Completed [facility] DTAP 2002-11-11 00:00:00 Completed [facility] Hep B, Adol or Pedi Dosage 2002-11-11 00:00:00 Completed [facility] DTaP, Unspecified Formulation 2002-11-11 00:00:00 Completed [facility] HIB 4 Dose Schedule 2002-11-11 00:00:00 Completed [facility] IPV 2002-11-11 00:00:00 Completed [facility] Polio (IPV/OPV) 2002-11-11 00:00:00 Completed [facility] MMR 2002-11-11 00:00:00 Completed [facility] DTaP, Unspecified Formulation 2002-11-11 00:00:00 Completed [facility] Varicella (varivax)(chicken pox) 2002-11-11 00:00:00 Completed [facility] IPV 2002-11-11 00:00:00 Completed [facility] DTaP, Unspecified Formulation 2002-11-11 00:00:00 Completed [facility] IPV 2002-11-11 00:00:00 Completed [facility] DTaP, Unspecified Formulation 2002-11-11 00:00:00 Completed [facility] IPV 2002-11-11 00:00:00 Completed [facility] DTAP 2002-11-11 00:00:00 Completed [facility] HIB 4 Dose Schedule 2002-11-11 00:00:00 Completed [facility] DTaP, Unspecified Formulation 2002-11-11 00:00:00 Completed [facility] Hep B, Adol or Pedi Dosage 2002-11-11 00:00:00 Completed [facility] IPV 2002-11-11 00:00:00 Completed [facility] MMR 2002-11-11 00:00:00 Completed [facility] Polio (IPV/OPV) 2002-11-11 00:00:00 Completed [facility] DTaP, Unspecified Formulation 2002-11-11 00:00:00 Completed [facility] Varicella (varivax)(chicken pox) 2002-11-11 00:00:00 Completed [facility] IPV 2002-11-11 00:00:00 Completed [facility] DTAP 2002-11-11 00:00:00 Completed [facility] Hep B, Adol or Pedi Dosage 2002-11-11 00:00:00 Completed [facility] DTaP, Unspecified Formulation 2002-11-11 00:00:00 Completed [facility] HIB 4 Dose Schedule 2002-11-11 00:00:00 Completed [facility] IPV 2002-11-11 00:00:00 Completed [facility] Polio (IPV/OPV) 2002-11-11 00:00:00 Completed [facility] MMR 2002-11-11 00:00:00 Completed [facility] Varicella (varivax)(chicken pox) 2002-11-11 00:00:00 Completed [facility] DTaP, Unspecified Formulation 2002-11-11 00:00:00 Completed [facility] IPV 2002-11-11 00:00:00 Completed [facility] DTaP, Unspecified Formulation 2002-11-11 00:00:00 Completed [facility] IPV 2002-11-11 00:00:00 Completed [facility] DTaP, Unspecified Formulation 2002-11-11 00:00:00 Completed [facility] DTAP 2002-11-11 00:00:00 Completed [facility] IPV 2002-11-11 00:00:00 Completed [facility] MMR MMR 2002-11-11 00:00:00 Completed [facility] IPV IPV 2002-11-11 00:00:00 Completed [facility] varicella varicella 2002-11-11 00:00:00 Completed [facility] DTaP, unspecified formul DTaP, unspecified formul 2002-11-11 00:00:00 Completed [facility] Hep B, adolescent or ped Hep B, adolescent or ped 2002-11-11 00:00:00 Completed [facility] Hib (PRP-T) Hib (PRP-T) 2002-11-11 00:00:00 Completed [facility] Poliovirus, Live, Oral, Trivalent 1999-05-14 00:00:00 Completed [facility] DTaP, Unspecified Formulation 1999-05-14 00:00:00 Completed [facility] HIB 4 Dose Schedule 1999-05-14 00:00:00 Completed [facility] Poliovirus, Live, Oral, Trivalent 1999-05-14 00:00:00 Completed [facility] DTaP, Unspecified Formulation 1999-05-14 00:00:00 Completed [facility] HIB 4 Dose Schedule 1999-05-14 00:00:00 Completed [facility] Poliovirus, Live, Oral, Trivalent 1999-05-14 00:00:00 Completed [facility] DTaP, Unspecified Formulation 1999-05-14 00:00:00 Completed [facility] HIB 4 Dose Schedule 1999-05-14 00:00:00 Completed [facility] Poliovirus, Live, Oral, Trivalent 1999-05-14 00:00:00 Completed [facility] DTaP, Unspecified Formulation 1999-05-14 00:00:00 Completed [facility] HIB 4 Dose Schedule 1999-05-14 00:00:00 Completed [facility] Poliovirus, Live, Oral, Trivalent 1999-05-14 00:00:00 Completed [facility] DTaP, Unspecified Formulation 1999-05-14 00:00:00 Completed [facility] HIB 4 Dose Schedule 1999-05-14 00:00:00 Completed [facility] Poliovirus, Live, Oral, Trivalent 1999-05-14 00:00:00 Completed [facility] DTaP, Unspecified Formulation 1999-05-14 00:00:00 Completed [facility] HIB 4 Dose Schedule 1999-05-14 00:00:00 Completed [facility] Poliovirus, Live, Oral, Trivalent 1999-05-14 00:00:00 Completed [facility] DTaP, Unspecified Formulation 1999-05-14 00:00:00 Completed [facility] HIB 4 Dose Schedule 1999-05-14 00:00:00 Completed [facility] Poliovirus, Live, Oral, Trivalent 1999-05-14 00:00:00 Completed [facility] DTaP, Unspecified Formulation 1999-05-14 00:00:00 Completed [facility] HIB 4 Dose Schedule 1999-05-14 00:00:00 Completed [facility] Poliovirus, Live, Oral, Trivalent 1999-05-14 00:00:00 Completed [facility] DTaP, Unspecified Formulation 1999-05-14 00:00:00 Completed [facility] HIB 4 Dose Schedule 1999-05-14 00:00:00 Completed [facility] Poliovirus, Live, Oral, Trivalent 1999-05-14 00:00:00 Completed [facility] DTaP, Unspecified Formulation 1999-05-14 00:00:00 Completed [facility] HIB 4 Dose Schedule 1999-05-14 00:00:00 Completed [facility] Poliovirus, Live, Oral, Trivalent 1999-05-14 00:00:00 Completed [facility] DTaP, Unspecified Formulation 1999-05-14 00:00:00 Completed [facility] HIB 4 Dose Schedule 1999-05-14 00:00:00 Completed [facility] Poliovirus, Live, Oral, Trivalent 1999-05-14 00:00:00 Completed [facility] DTaP, Unspecified Formulation 1999-05-14 00:00:00 Completed [facility] HIB 4 Dose Schedule 1999-05-14 00:00:00 Completed [facility] Poliovirus, Live, Oral, Trivalent 1999-05-14 00:00:00 Completed [facility] DTaP, Unspecified Formulation 1999-05-14 00:00:00 Completed [facility] HIB 4 Dose Schedule 1999-05-14 00:00:00 Completed [facility] Poliovirus, Live, Oral, Trivalent 1999-05-14 00:00:00 Completed [facility] DTaP, Unspecified Formulation 1999-05-14 00:00:00 Completed [facility] HIB 4 Dose Schedule 1999-05-14 00:00:00 Completed [facility] Poliovirus, Live, Oral, Trivalent 1999-05-14 00:00:00 Completed [facility] DTaP, Unspecified Formulation 1999-05-14 00:00:00 Completed [facility] HIB 4 Dose Schedule 1999-05-14 00:00:00 Completed [facility] Poliovirus, Live, Oral, Trivalent 1999-05-14 00:00:00 Completed [facility] DTaP, Unspecified Formulation 1999-05-14 00:00:00 Completed [facility] HIB 4 Dose Schedule 1999-05-14 00:00:00 Completed [facility] Poliovirus, Live, Oral, Trivalent 1999-05-14 00:00:00 Completed [facility] DTaP, Unspecified Formulation 1999-05-14 00:00:00 Completed [facility] HIB 4 Dose Schedule 1999-05-14 00:00:00 Completed [facility] Poliovirus, Live, Oral, Trivalent 1999-05-14 00:00:00 Completed [facility] DTaP, Unspecified Formulation 1999-05-14 00:00:00 Completed [facility] HIB 4 Dose Schedule 1999-05-14 00:00:00 Completed [facility] Poliovirus, Live, Oral, Trivalent 1999-05-14 00:00:00 Completed [facility] DTaP, Unspecified Formulation 1999-05-14 00:00:00 Completed [facility] HIB 4 Dose Schedule 1999-05-14 00:00:00 Completed [facility] Poliovirus, Live, Oral, Trivalent 1999-05-14 00:00:00 Completed [facility] DTaP, Unspecified Formulation 1999-05-14 00:00:00 Completed [facility] HIB 4 Dose Schedule 1999-05-14 00:00:00 Completed [facility] Poliovirus, Live, Oral, Trivalent 1999-05-14 00:00:00 Completed [facility] DTaP, Unspecified Formulation 1999-05-14 00:00:00 Completed [facility] HIB 4 Dose Schedule 1999-05-14 00:00:00 Completed [facility] OPV OPV 1999-05-14 00:00:00 Completed [facility] DTaP, unspecified formul DTaP, unspecified formul 1999-05-14 00:00:00 Completed [facility] Hib (PRP-T) Hib (PRP-T) 1999-05-14 00:00:00 Completed [facility] Poliovirus, Live, Oral, Trivalent 1999-01-26 00:00:00 Completed [facility] DTaP, Unspecified Formulation 1999-01-26 00:00:00 Completed [facility] Hep B, Adol or Pedi Dosage 1999-01-26 00:00:00 Completed [facility] HIB 4 Dose Schedule 1999-01-26 00:00:00 Completed [facility] Poliovirus, Live, Oral, Trivalent 1999-01-26 00:00:00 Completed [facility] DTaP, Unspecified Formulation 1999-01-26 00:00:00 Completed [facility] Hep B, Adol or Pedi Dosage 1999-01-26 00:00:00 Completed [facility] HIB 4 Dose Schedule 1999-01-26 00:00:00 Completed [facility] Poliovirus, Live, Oral, Trivalent 1999-01-26 00:00:00 Completed [facility] DTaP, Unspecified Formulation 1999-01-26 00:00:00 Completed [facility] Hep B, Adol or Pedi Dosage 1999-01-26 00:00:00 Completed [facility] HIB 4 Dose Schedule 1999-01-26 00:00:00 Completed [facility] Poliovirus, Live, Oral, Trivalent 1999-01-26 00:00:00 Completed [facility] DTaP, Unspecified Formulation 1999-01-26 00:00:00 Completed [facility] Hep B, Adol or Pedi Dosage 1999-01-26 00:00:00 Completed [facility] HIB 4 Dose Schedule 1999-01-26 00:00:00 Completed [facility] Poliovirus, Live, Oral, Trivalent 1999-01-26 00:00:00 Completed [facility] DTaP, Unspecified Formulation 1999-01-26 00:00:00 Completed [facility] Hep B, Adol or Pedi Dosage 1999-01-26 00:00:00 Completed [facility] HIB 4 Dose Schedule 1999-01-26 00:00:00 Completed [facility] Poliovirus, Live, Oral, Trivalent 1999-01-26 00:00:00 Completed [facility] DTaP, Unspecified Formulation 1999-01-26 00:00:00 Completed [facility] Hep B, Adol or Pedi Dosage 1999-01-26 00:00:00 Completed [facility] HIB 4 Dose Schedule 1999-01-26 00:00:00 Completed [facility] Poliovirus, Live, Oral, Trivalent 1999-01-26 00:00:00 Completed [facility] DTaP, Unspecified Formulation 1999-01-26 00:00:00 Completed [facility] Hep B, Adol or Pedi Dosage 1999-01-26 00:00:00 Completed [facility] HIB 4 Dose Schedule 1999-01-26 00:00:00 Completed [facility] Poliovirus, Live, Oral, Trivalent 1999-01-26 00:00:00 Completed [facility] DTaP, Unspecified Formulation 1999-01-26 00:00:00 Completed [facility] Hep B, Adol or Pedi Dosage 1999-01-26 00:00:00 Completed [facility] HIB 4 Dose Schedule 1999-01-26 00:00:00 Completed [facility] Poliovirus, Live, Oral, Trivalent 1999-01-26 00:00:00 Completed [facility] DTaP, Unspecified Formulation 1999-01-26 00:00:00 Completed [facility] Hep B, Adol or Pedi Dosage 1999-01-26 00:00:00 Completed [facility] HIB 4 Dose Schedule 1999-01-26 00:00:00 Completed [facility] Poliovirus, Live, Oral, Trivalent 1999-01-26 00:00:00 Completed [facility] DTaP, Unspecified Formulation 1999-01-26 00:00:00 Completed [facility] Hep B, Adol or Pedi Dosage 1999-01-26 00:00:00 Completed [facility] HIB 4 Dose Schedule 1999-01-26 00:00:00 Completed [facility] Poliovirus, Live, Oral, Trivalent 1999-01-26 00:00:00 Completed [facility] DTaP, Unspecified Formulation 1999-01-26 00:00:00 Completed [facility] Hep B, Adol or Pedi Dosage 1999-01-26 00:00:00 Completed [facility] HIB 4 Dose Schedule 1999-01-26 00:00:00 Completed [facility] Poliovirus, Live, Oral, Trivalent 1999-01-26 00:00:00 Completed [facility] DTaP, Unspecified Formulation 1999-01-26 00:00:00 Completed [facility] Hep B, Adol or Pedi Dosage 1999-01-26 00:00:00 Completed [facility] HIB 4 Dose Schedule 1999-01-26 00:00:00 Completed [facility] Poliovirus, Live, Oral, Trivalent 1999-01-26 00:00:00 Completed [facility] DTaP, Unspecified Formulation 1999-01-26 00:00:00 Completed [facility] Hep B, Adol or Pedi Dosage 1999-01-26 00:00:00 Completed [facility] HIB 4 Dose Schedule 1999-01-26 00:00:00 Completed [facility] Poliovirus, Live, Oral, Trivalent 1999-01-26 00:00:00 Completed [facility] DTaP, Unspecified Formulation 1999-01-26 00:00:00 Completed [facility] Hep B, Adol or Pedi Dosage 1999-01-26 00:00:00 Completed [facility] HIB 4 Dose Schedule 1999-01-26 00:00:00 Completed [facility] Poliovirus, Live, Oral, Trivalent 1999-01-26 00:00:00 Completed [facility] DTaP, Unspecified Formulation 1999-01-26 00:00:00 Completed [facility] Hep B, Adol or Pedi Dosage 1999-01-26 00:00:00 Completed [facility] HIB 4 Dose Schedule 1999-01-26 00:00:00 Completed [facility] Poliovirus, Live, Oral, Trivalent 1999-01-26 00:00:00 Completed [facility] DTaP, Unspecified Formulation 1999-01-26 00:00:00 Completed [facility] Hep B, Adol or Pedi Dosage 1999-01-26 00:00:00 Completed [facility] HIB 4 Dose Schedule 1999-01-26 00:00:00 Completed [facility] Poliovirus, Live, Oral, Trivalent 1999-01-26 00:00:00 Completed [facility] DTaP, Unspecified Formulation 1999-01-26 00:00:00 Completed [facility] Hep B, Adol or Pedi Dosage 1999-01-26 00:00:00 Completed [facility] HIB 4 Dose Schedule 1999-01-26 00:00:00 Completed [facility] Poliovirus, Live, Oral, Trivalent 1999-01-26 00:00:00 Completed [facility] DTaP, Unspecified Formulation 1999-01-26 00:00:00 Completed [facility] Hep B, Adol or Pedi Dosage 1999-01-26 00:00:00 Completed [facility] HIB 4 Dose Schedule 1999-01-26 00:00:00 Completed [facility] Poliovirus, Live, Oral, Trivalent 1999-01-26 00:00:00 Completed [facility] DTaP, Unspecified Formulation 1999-01-26 00:00:00 Completed [facility] Hep B, Adol or Pedi Dosage 1999-01-26 00:00:00 Completed [facility] HIB 4 Dose Schedule 1999-01-26 00:00:00 Completed [facility] Poliovirus, Live, Oral, Trivalent 1999-01-26 00:00:00 Completed [facility] DTaP, Unspecified Formulation 1999-01-26 00:00:00 Completed [facility] Hep B, Adol or Pedi Dosage 1999-01-26 00:00:00 Completed [facility] HIB 4 Dose Schedule 1999-01-26 00:00:00 Completed [facility] Poliovirus, Live, Oral, Trivalent 1999-01-26 00:00:00 Completed [facility] DTaP, Unspecified Formulation 1999-01-26 00:00:00 Completed [facility] Hep B, Adol or Pedi Dosage 1999-01-26 00:00:00 Completed [facility] HIB 4 Dose Schedule 1999-01-26 00:00:00 Completed [facility] OPV OPV 1999-01-26 00:00:00 [facility] DTaP, unspecified formul DTaP, unspecified formul 1999-01-26 00:00:00 Completed [facility] Hep B, adolescent or ped Hep B, adolescent or ped 1999-01-26 00:00:00 Completed [facility] Hib (PRP-T) Hib (PRP-T) 1999-01-26 00:00:00 Completed [facility] Hep B, Adol or Pedi Dosage 1998 00:00:00 Completed [facility] Hep B, Adol or Pedi Dosage 1998 00:00:00 Completed [facility] Hep B, Adol or Pedi Dosage 1998 00:00:00 Completed [facility] Hep B, Adol or Pedi Dosage 1998 00:00:00 Completed [facility] Hep B, Adol or Pedi Dosage 1998 00:00:00 Completed [facility] Hep B, Adol or Pedi Dosage 1998 00:00:00 Completed [facility] Hep B, Adol or Pedi Dosage 1998 00:00:00 Completed [facility] Hep B, Adol or Pedi Dosage 1998 00:00:00 Completed [facility] Hep B, Adol or Pedi Dosage 1998 00:00:00 Completed [facility] Hep B, Adol or Pedi Dosage 1998 00:00:00 Completed [facility] Hep B, Adol or Pedi Dosage 1998 00:00:00 Completed [facility] Hep B, Adol or Pedi Dosage 1998 00:00:00 Completed [facility] Hep B, Adol or Pedi Dosage 1998 00:00:00 Completed [facility] Hep B, Adol or Pedi Dosage 1998 00:00:00 Completed [facility] Hep B, Adol or Pedi Dosage 1998 00:00:00 Completed [facility] Hep B, Adol or Pedi Dosage 1998 00:00:00 Completed [facility] Hep B, Adol or Pedi Dosage 1998 00:00:00 Completed [facility] Hep B, Adol or Pedi Dosage 1998 00:00:00 Completed [facility] Hep B, Adol or Pedi Dosage 1998 00:00:00 Completed [facility] Hep B, Adol or Pedi Dosage 1998 00:00:00 Completed [facility] Hep B, Adol or Pedi Dosage 1998 00:00:00 Completed [facility] Hep B, adolescent or ped Hep B, adolescent or ped 1998 00:00:00 Completed [facility] HPV Unknown Completed [facility] Meningococcal Polysaccharide (groups A, C, Y and W-135) conjugate vaccine (MCV4P) Unknown Completed [facility] TDAP (ADACEL) VACCINE Unknown Completed [facility] Influenza Virus Vaccine Quad .5 mL IM 6+ MO (FLUZONE/FLULAVAL/FL UARIX) Unknown Completed [facility] TDAP (ADACEL) VACCINE Unknown Completed [facility] TDAP (ADACEL) VACCINE Unknown Completed [facility] Influenza Virus Vaccine Quad .5 mL IM 6+ MO (FLUZONE/FLULAVAL/FL UARIX) Unknown Completed [facility] HPV Unknown Completed [facility] Meningococcal Polysaccharide (groups A, C, Y and W-135) conjugate vaccine (MCV4P) Unknown Completed [facility] Varicella (varivax)(chicken pox) Unknown Completed [facility] SARS-COV-2 COVID-19 VACCINE - (MODERNA) Unknown Completed [facility] SARS-COV-2 COVID-19 VACCINE - (MODERNA) Unknown Completed [facility] DTaP, Unspecified Formulation Unknown Completed [facility] DTaP, Unspecified Formulation Unknown Completed [facility] DTaP, Unspecified Formulation Unknown Completed [facility] DTaP, Unspecified Formulation Unknown Completed [facility] HEPATITIS A Unknown Completed [facility] Hep B, Adol or Pedi Dosage Unknown Completed [facility] Hep B, Adol or Pedi Dosage Unknown Completed [facility] HIB 4 Dose Schedule Unknown Completed [facility] HIB 4 Dose Schedule Unknown Completed [facility] MMR Unknown Completed [facility] IPV Unknown Completed [facility] IPV Unknown Completed [facility] Poliovirus, Live, Oral, Trivalent Unknown Completed [facility] Poliovirus, Live, Oral, Trivalent Unknown Completed [facility] Tetanus/Diptheria Unknown Completed [facility] HPV Unknown Completed [facility] Meningococcal Polysaccharide (groups A, C, Y and W-135) conjugate vaccine (MCV4P) Unknown Completed [facility] TDAP (ADACEL) VACCINE Unknown Completed [facility] Influenza Virus Vaccine Quad .5 mL IM 6+ MO (FLUZONE/FLULAVAL/FL UARIX) Unknown Completed [facility] TDAP (ADACEL) VACCINE Unknown Completed [facility] TDAP (ADACEL) VACCINE Unknown Completed [facility] Influenza Virus Vaccine Quad .5 mL IM 6+ MO (FLUZONE/FLULAVAL/FL UARIX) Unknown Completed [facility] HPV Unknown Completed [facility] Meningococcal Polysaccharide (groups A, C, Y and W-135) conjugate vaccine (MCV4P) Unknown Completed [facility] Varicella (varivax)(chicken pox) Unknown Completed [facility] SARS-COV-2 COVID-19 VACCINE - (MODERNA) Unknown Completed [facility] SARS-COV-2 COVID-19 VACCINE - (MODERNA) Unknown Completed [facility] DTaP, Unspecified Formulation Unknown Completed [facility] DTaP, Unspecified Formulation Unknown Completed [facility] DTaP, Unspecified Formulation Unknown Completed [facility] DTaP, Unspecified Formulation Unknown Completed [facility] HEPATITIS A Unknown Completed [facility] Hep B, Adol or Pedi Dosage Unknown Completed [facility] Hep B, Adol or Pedi Dosage Unknown Completed [facility] HIB 4 Dose Schedule Unknown Completed [facility] HIB 4 Dose Schedule Unknown Completed [facility] MMR Unknown Completed [facility] IPV Unknown Completed [facility] IPV Unknown Completed [facility] Poliovirus, Live, Oral, Trivalent Unknown Completed [facility] Poliovirus, Live, Oral, Trivalent Unknown Completed [facility] Tetanus/Diptheria Unknown Completed [facility] HPV Unknown Completed [facility] Meningococcal Polysaccharide (groups A, C, Y and W-135) conjugate vaccine (MCV4P) Unknown Completed [facility] TDAP (ADACEL) VACCINE Unknown Completed [facility] Influenza Virus Vaccine Quad .5 mL IM 6+ MO (FLUZONE/FLULAVAL/FL UARIX) Unknown Completed [facility] TDAP (ADACEL) VACCINE Unknown Completed [facility] TDAP (ADACEL) VACCINE Unknown Completed [facility] Influenza Virus Vaccine Quad .5 mL IM 6+ MO (FLUZONE/FLULAVAL/FL UARIX) Unknown Completed [facility] HPV Unknown Completed [facility] Meningococcal Polysaccharide (groups A, C, Y and W-135) conjugate vaccine (MCV4P) Unknown Completed [facility] Varicella (varivax)(chicken pox) Unknown Completed [facility] SARS-COV-2 COVID-19 VACCINE - (MODERNA) Unknown Completed [facility] SARS-COV-2 COVID-19 VACCINE - (MODERNA) Unknown Completed [facility] DTaP, Unspecified Formulation Unknown Completed [facility] DTaP, Unspecified Formulation Unknown Completed [facility] DTaP, Unspecified Formulation Unknown Completed [facility] DTaP, Unspecified Formulation Unknown Completed [facility] HEPATITIS A Unknown Completed [facility] Hep B, Adol or Pedi Dosage Unknown Completed [facility] Hep B, Adol or Pedi Dosage Unknown Completed [facility] HIB 4 Dose Schedule Unknown Completed [facility] HIB 4 Dose Schedule Unknown Completed [facility] MMR Unknown Completed [facility] IPV Unknown Completed [facility] IPV Unknown Completed [facility] Poliovirus, Live, Oral, Trivalent Unknown Completed [facility] Poliovirus, Live, Oral, Trivalent Unknown Completed [facility] Tetanus/Diptheria Unknown Completed [facility] HPV Unknown Completed [facility] Meningococcal Polysaccharide (groups A, C, Y and W-135) conjugate vaccine (MCV4P) Unknown Completed [facility] TDAP (ADACEL) VACCINE Unknown Completed [facility] Influenza Virus Vaccine Quad .5 mL IM 6+ MO (FLUZONE/FLULAVAL/FL UARIX) Unknown Completed [facility] TDAP (ADACEL) VACCINE Unknown Completed [facility] TDAP (ADACEL) VACCINE Unknown Completed [facility] Influenza Virus Vaccine Quad .5 mL IM 6+ MO (FLUZONE/FLULAVAL/FL UARIX) Unknown Completed [facility] HPV Unknown Completed [facility] Meningococcal Polysaccharide (groups A, C, Y and W-135) conjugate vaccine (MCV4P) Unknown Completed [facility] Varicella (varivax)(chicken pox) Unknown Completed [facility] SARS-COV-2 COVID-19 VACCINE - (MODERNA) Unknown Completed [facility] SARS-COV-2 COVID-19 VACCINE - (MODERNA) Unknown Completed [facility] DTaP, Unspecified Formulation Unknown Completed [facility] DTaP, Unspecified Formulation Unknown Completed [facility] DTaP, Unspecified Formulation Unknown Completed [facility] DTaP, Unspecified Formulation Unknown Completed [facility] HEPATITIS A Unknown Completed [facility] Hep B, Adol or Pedi Dosage Unknown Completed [facility] Hep B, Adol or Pedi Dosage Unknown Completed [facility] HIB 4 Dose Schedule Unknown Completed [facility] HIB 4 Dose Schedule Unknown Completed [facility] MMR Unknown Completed [facility] IPV Unknown Completed [facility] IPV Unknown Completed [facility] Poliovirus, Live, Oral, Trivalent Unknown Completed [facility] Poliovirus, Live, Oral, Trivalent Unknown Completed [facility] Tetanus/Diptheria Unknown Completed [facility] HPV Unknown Completed [facility] Meningococcal Polysaccharide (groups A, C, Y and W-135) conjugate vaccine (MCV4P) Unknown Completed [facility] TDAP (ADACEL) VACCINE Unknown Completed [facility] Influenza Virus Vaccine Quad .5 mL IM 6+ MO (FLUZONE/FLULAVAL/FL UARIX) Unknown Completed [facility] TDAP (ADACEL) VACCINE Unknown Completed [facility] TDAP (ADACEL) VACCINE Unknown Completed [facility] Influenza Virus Vaccine Quad .5 mL IM 6+ MO (FLUZONE/FLULAVAL/FL UARIX) Unknown Completed [facility] HPV Unknown Completed [facility] Meningococcal Polysaccharide (groups A, C, Y and W-135) conjugate vaccine (MCV4P) Unknown Completed [facility] Varicella (varivax)(chicken pox) Unknown Completed [facility] SARS-COV-2 COVID-19 VACCINE - (MODERNA) Unknown Completed [facility] DTaP, Unspecified Formulation Unknown Completed [facility] DTaP, Unspecified Formulation Unknown Completed [facility] DTaP, Unspecified Formulation Unknown Completed [facility] DTaP, Unspecified Formulation Unknown Completed [facility] HEPATITIS A Unknown Completed [facility] Hep B, Adol or Pedi Dosage Unknown Completed [facility] Hep B, Adol or Pedi Dosage Unknown Completed [facility] HIB 4 Dose Schedule Unknown Completed [facility] HIB 4 Dose Schedule Unknown Completed [facility] MMR Unknown Completed [facility] IPV Unknown Completed [facility] IPV Unknown Completed [facility] Poliovirus, Live, Oral, Trivalent Unknown Completed [facility] Poliovirus, Live, Oral, Trivalent Unknown Completed [facility] Tetanus/Diptheria Unknown Completed [facility] HPV Unknown Completed [facility] Meningococcal Polysaccharide (groups A, C, Y and W-135) conjugate vaccine (MCV4P) Unknown Completed [facility] TDAP (ADACEL) VACCINE Unknown Completed [facility] Influenza Virus Vaccine Quad .5 mL IM 6+ MO (FLUZONE/FLULAVAL/FL UARIX) Unknown Completed [facility] TDAP (ADACEL) VACCINE Unknown Completed [facility] TDAP (ADACEL) VACCINE Unknown Completed [facility] Influenza Virus Vaccine Quad .5 mL IM 6+ MO (FLUZONE/FLULAVAL/FL UARIX) Unknown Completed [facility] HPV Unknown Completed [facility] Meningococcal Polysaccharide (groups A, C, Y and W-135) conjugate vaccine (MCV4P) Unknown Completed [facility] Varicella (varivax)(chicken pox) Unknown Completed [facility] SARS-COV-2 COVID-19 VACCINE - (MODERNA) Unknown Completed [facility] SARS-COV-2 COVID-19 VACCINE - (MODERNA) Unknown Completed [facility] DTaP, Unspecified Formulation Unknown Completed [facility] DTaP, Unspecified Formulation Unknown Completed [facility] DTaP, Unspecified Formulation Unknown Completed [facility] DTaP, Unspecified Formulation Unknown Completed [facility] HEPATITIS A Unknown Completed [facility] Hep B, Adol or Pedi Dosage Unknown Completed [facility] Hep B, Adol or Pedi Dosage Unknown Completed [facility] HIB 4 Dose Schedule Unknown Completed [facility] HIB 4 Dose Schedule Unknown [facility] MMR Unknown Completed [facility] IPV Unknown Completed [facility] IPV Unknown Completed [facility] Poliovirus, Live, Oral, Trivalent Unknown Completed [facility] Poliovirus, Live, Oral, Trivalent Unknown Completed [facility]heria [facility] Meningococcal Polysaccharide (groups A, C, Y and W-135) conjugate vaccine (MCV4P) Unknown Completed [facility] TDAP (ADACEL) VACCINE Unknown Completed [facility] Influenza Virus Vaccine Quad .5 mL IM 6+ MO (FLUZONE/FLULAVAL/FL UARIX) Unknown Completed [facility] TDAP (ADACEL) VACCINE Unknown Completed [facility] TDAP (ADACEL) VACCINE Unknown Completed [facility] Influenza Virus Vaccine Quad .5 mL IM 6+ MO (FLUZONE/FLULAVAL/FL UARIX) Unknown Completed [facility] HPV Unknown Completed [facility] Meningococcal Polysaccharide (groups A, C, Y and W-135) conjugate vaccine (MCV4P) Unknown Completed [facility] Varicella (varivax)(chicken pox) Unknown Completed [facility] SARS-COV-2 COVID-19 VACCINE - (MODERNA) Unknown Completed [facility] SARS-COV-2 COVID-19 VACCINE - (MODERNA) Unknown Completed [facility] DTaP, Unspecified Formulation Unknown Completed [facility] DTaP, Unspecified Formulation Unknown Completed [facility] DTaP, Unspecified Formulation Unknown Completed [facility] DTaP, Unspecified Formulation Unknown Completed [facility] HEPATITIS A Unknown Completed [facility] Hep B, Adol or Pedi Dosage Unknown Completed [facility] Hep B, Adol or Pedi Dosage Unknown Completed [facility] HIB 4 Dose Schedule Unknown Completed [facility] HIB 4 Dose Schedule Unknown Completed [facility] MMR Unknown Completed [facility] IPV Unknown Completed [facility] IPV Unknown Completed [facility] Poliovirus, Live, Oral, Trivalent Unknown Completed [facility] Poliovirus, Live, Oral, Trivalent Unknown Completed [facility] Tetanus/Diptheria [facility] Com[facility] Meningococcal Polysaccharide (groups A, C, Y and W-135) conjugate vaccine (MCV4P) Unknown Completed [facility] TDAP (ADACEL) VACCINE Unknown Completed [facility] Influenza Virus Vaccine Quad .5 mL IM 6+ MO (FLUZONE/FLULAVAL/FL UARIX) Unknown Completed [facility] TDAP (ADACEL) VACCINE Unknown Completed [facility] TDAP (ADACEL) VACCINE Unknown Completed [facility] Influenza Virus Vaccine Quad .5 mL IM 6+ MO (FLUZONE/FLULAVAL/FL UARIX) Unknown Completed [facility] HPV Unknown Completed [facility] Meningococcal Polysaccharide (groups A, C, Y and W-135) conjugate vaccine (MCV4P) Unknown Completed [facility] Varicella (varivax)(chicken pox) Unknown Completed [facility] SARS-COV-2 COVID-19 VACCINE - (MODERNA) Unknown Completed [facility] SARS-COV-2 COVID-19 VACCINE - (MODERNA) Unknown Completed [facility] DTaP, Unspecified Formulation Unknown Completed [facility] DTaP, Unspecified Formulation Unknown Completed [facility] DTaP, Unspecified Formulation Unknown Completed [facility] DTaP, Unspecified Formulation Unknown Completed [facility] HEPATITIS A Unknown Completed [facility] Hep B, Adol or Pedi Dosage Unknown Completed [facility] Hep B, Adol or Pedi Dosage Unknown Completed [facility] HIB 4 Dose Schedule Unknown Completed [facility] HIB 4 Dose Schedule Unknown Completed [facility] MMR Unknown Completed [facility] IPV Unknown Completed [facility] IPV Unknown Completed [facility] Poliovirus, Live, Oral, Trivalent Unknown Completed [facility] Poliovirus, Live, Oral, Trivalent Unknown Completed [facility] Tetanus/Diptheria Unknown Completed [facility] HPV Unknown Completed [facility] Meningococcal Polysaccharide (groups A, C, Y and W-135) conjugate vaccine (MCV4P) Unknown Completed [facility] TDAP (ADACEL) VACCINE Unknown Completed [facility] Influenza Virus Vaccine Quad .5 mL IM 6+ MO (FLUZONE/FLULAVAL/FL UARIX) Unknown Completed [facility] TDAP (ADACEL) VACCINE Unknown Completed [facility] TDAP (ADACEL) VACCINE Unknown Completed [facility] Influenza Virus Vaccine Quad .5 mL IM 6+ MO (FLUZONE/FLULAVAL/FL UARIX) Unknown Completed [facility] HPV Unknown Completed [facility] Meningococcal Polysaccharide (groups A, C, Y and W-135) conjugate vaccine (MCV4P) Unknown Completed [facility] Varicella (varivax)(chicken pox) Unknown Completed [facility] SARS-COV-2 COVID-19 VACCINE - (MODERNA) Unknown Completed [facility] SARS-COV-2 COVID-19 VACCINE - (MODERNA) Unknown Completed [facility] DTaP, Unspecified Formulation Unknown Completed [facility] DTaP, Unspecified Formulation Unknown Completed [facility] DTaP, Unspecified Formulation Unknown Completed [facility] DTaP, Unspecified Formulation Unknown Completed [facility] HEPATITIS A Unknown Completed [facility] Hep B, Adol or Pedi Dosage Unknown Completed [facility] Hep B, Adol or Pedi Dosage Unknown Completed [facility] HIB 4 Dose Schedule Unknown Completed [facility] HIB 4 Dose Schedule Unknown Completed [facility] MMR Unknown Completed [facility] IPV Unknown Completed [facility] IPV Unknown Completed [facility] Poliovirus, Live, Oral, Trivalent Unknown Completed [facility] Poliovirus, Live, Oral, Trivalent Unknown Completed [facility] Tetanus/Diptheria Unknown Completed [facility] TDAP Unknown Completed [facility] Influenza Virus Vaccine Quad IM, Preserv and ABX Free 6 MO-64 YRS (FLUCELVAX) Unknown Completed [facility] HPV Unknown Completed [facility] Meningococcal Polysaccharide (groups A, C, Y and W-135) conjugate vaccine (MCV4P) Unknown Completed [facility] TDAP (ADACEL) VACCINE Unknown Completed [facility] Influenza Virus Vaccine Quad .5 mL IM 6+ MO (FLUZONE/FLULAVAL/FL UARIX) Unknown Completed [facility] TDAP (ADACEL) VACCINE Unknown Completed [facility] TDAP (ADACEL) VACCINE Unknown Completed [facility] Influenza Virus Vaccine Quad .5 mL IM 6+ MO (FLUZONE/FLULAVAL/FL UARIX) Unknown Completed [facility] HPV Unknown Completed [facility] Meningococcal Polysaccharide (groups A, C, Y and W-135) conjugate vaccine (MCV4P) Unknown Completed [facility] Varicella (varivax)(chicken pox) Unknown Completed [facility] SARS-COV-2 COVID-19 VACCINE - (MODERNA) Unknown Completed [facility] SARS-COV-2 COVID-19 VACCINE - (MODERNA) Unknown Completed [facility] DTaP, Unspecified Formulation Unknown Completed [facility] DTaP, Unspecified Formulation Unknown Completed [facility] DTaP, Unspecified Formulation Unknown Completed [facility] DTaP, Unspecified Formulation Unknown Completed [facility] HEPATITIS A Unknown Completed [facility] Hep B, Adol or Pedi Dosage Unknown Completed [facility] Hep B, Adol or Pedi Dosage Unknown Completed [facility] HIB 4 Dose Schedule Unknown Completed [facility] HIB 4 Dose Schedule Unknown Completed [facility] MMR Unknown Completed [facility] IPV Unknown Completed [facility] IPV Unknown Completed [facility] Poliovirus, Live, Oral, Trivalent Unknown Completed [facility] Poliovirus, Live, Oral, Trivalent Unknown Completed [facility] Tetanus/Diptheria [facility] Unknown Completed [facility] Influenza Virus Vaccine Quad IM, Preserv and ABX Free 6 MO-64 YRS (FLUCELVAX) Unknown Completed [facility] HPV Unknown Completed [facility] Meningococcal Polysaccharide (groups A, C, Y and W-135) conjugate vaccine (MCV4P) Unknown Completed [facility] TDAP (ADACEL) VACCINE Unknown Completed [facility] Influenza Virus Vaccine Quad .5 mL IM 6+ MO (FLUZONE/FLULAVAL/FL UARIX) Unknown Completed [facility] TDAP (ADACEL) VACCINE Unknown Completed [facility] TDAP (ADACEL) VACCINE Unknown Completed [facility] Influenza Virus Vaccine Quad .5 mL IM 6+ MO (FLUZONE/FLULAVAL/FL UARIX) Unknown Completed [facility] HPV Unknown Completed [facility] Meningococcal Polysaccharide (groups A, C, Y and W-135) conjugate vaccine (MCV4P) Unknown Completed [facility] Varicella (varivax)(chicken pox) Unknown Completed [facility] SARS-COV-2 COVID-19 VACCINE - (MODERNA) Unknown Completed [facility] SARS-COV-2 COVID-19 VACCINE - (MODERNA) Unknown Completed [facility] DTaP, Unspecified Formulation Unknown Completed [facility] DTaP, Unspecified Formulation Unknown Completed [facility] DTaP, Unspecified Formulation Unknown Completed [facility] DTaP, Unspecified Formulation Unknown Completed [facility] HEPATITIS A Unknown Completed [facility] Hep B, Adol or Pedi Dosage Unknown Completed [facility] Hep B, Adol or Pedi Dosage Unknown Completed [facility] HIB 4 Dose Schedule Unknown Completed [facility] HIB 4 Dose Schedule Unknown Completed [facility] MMR Unknown Completed [facility] IPV Unknown Completed [facility] IPV Unknown Completed [facility] Poliovirus, Live, Oral, Trivalent Unknown Completed [facility] Poliovirus, Live, Oral, Trivalent Unknown Completed [facility] Tetanus/Diptheria [facility] Unknown Completed [facility] Influenza Virus Vaccine Quad IM, Preserv and ABX Free 6 MO-64 YRS (FLUCELVAX) Unknown Completed [facility] HPV Unknown Completed [facility] Meningococcal Polysaccharide (groups A, C, Y and W-135) conjugate vaccine (MCV4P) Unknown Completed [facility] TDAP (ADACEL) VACCINE Unknown Completed [facility] Influenza Virus Vaccine Quad .5 mL IM 6+ MO (FLUZONE/FLULAVAL/FL UARIX) Unknown Completed [facility] TDAP (ADACEL) VACCINE Unknown Completed [facility] TDAP (ADACEL) VACCINE Unknown Completed [facility] Influenza Virus Vaccine Quad .5 mL IM 6+ MO (FLUZONE/FLULAVAL/FL UARIX) Unknown Completed [facility] HPV Unknown Completed [facility] Meningococcal Polysaccharide (groups A, C, Y and W-135) conjugate vaccine (MCV4P) Unknown Completed [facility] Varicella (varivax)(chicken pox) Unknown Completed [facility] SARS-COV-2 COVID-19 VACCINE - (MODERNA) Unknown Completed [facility] SARS-COV-2 COVID-19 VACCINE - (MODERNA) Unknown Completed [facility] DTaP, Unspecified Formulation Unknown Completed [facility] DTaP, Unspecified Formulation Unknown Completed [facility] DTaP, Unspecified Formulation Unknown Completed [facility] DTaP, Unspecified Formulation Unknown Completed [facility] HEPATITIS A Unknown Completed [facility] Hep B, Adol or Pedi Dosage Unknown Completed [facility] Hep B, Adol or Pedi Dosage Unknown Completed [facility] HIB 4 Dose Schedule Unknown Completed [facility] HIB 4 Dose Schedule Unknown Completed [facility] MMR Unknown Completed [facility] IPV Unknown Completed [facility] IPV Unknown Completed [facility] Poliovirus, Live, Oral, Trivalent Unknown Completed [facility] Poliovirus, Live, Oral, Trivalent Unknown Completed [facility] Tetanus/Diptheria Unknown Completed [facility] TDAP Unknown Completed [facility] Influenza Virus Vaccine Quad IM, Preserv and ABX Free 6 MO-64 YRS (FLUCELVAX) Unknown Completed [facility] HPV Unknown Completed [facility] Meningococcal Polysaccharide (groups A, C, Y and W-135) conjugate vaccine (MCV4P) Unknown Completed [facility] TDAP (ADACEL) VACCINE Unknown Completed [facility] Influenza Virus Vaccine Quad .5 mL IM 6+ MO (FLUZONE/FLULAVAL/FL UARIX) Unknown Completed [facility] TDAP (ADACEL) VACCINE Unknown Completed [facility] TDAP (ADACEL) VACCINE Unknown Completed [facility] Influenza Virus Vaccine Quad .5 mL IM 6+ MO (FLUZONE/FLULAVAL/FL UARIX) Unknown Completed [facility] HPV Unknown Completed [facility] Meningococcal Polysaccharide (groups A, C, Y and W-135) conjugate vaccine (MCV4P) Unknown Completed [facility] Varicella (varivax)(chicken pox) Unknown Completed [facility] SARS-COV-2 COVID-19 VACCINE - (MODERNA) Unknown Completed [facility] SARS-COV-2 COVID-19 VACCINE - (MODERNA) Unknown Completed [facility] DTaP, Unspecified Formulation Unknown Completed [facility] DTaP, Unspecified Formulation Unknown Completed [facility] DTaP, Unspecified Formulation Unknown Completed [facility] DTaP, Unspecified Formulation Unknown Completed [facility] HEPATITIS A Unknown Completed [facility] Hep B, Adol or Pedi Dosage Unknown Completed [facility] Hep B, Adol or Pedi Dosage Unknown Completed [facility] HIB 4 Dose Schedule Unknown Completed [facility] HIB 4 Dose Schedule Unknown Completed [facility] MMR Unknown Completed [facility] IPV Unknown Completed [facility] IPV Unknown Completed [facility] Poliovirus, Live, Oral, Trivalent Unknown Completed [facility] Poliovirus, Live, Oral, Trivalent Unknown Completed [facility] Tetanus/Diptheria Unknown [facility] Unknown Completed [facility] Influenza Virus Vaccine Quad IM, Preserv and ABX Free 6 MO-64 YRS (FLUCELVAX) Unknown Completed [facility] HPV Unknown Completed [facility] Meningococcal Polysaccharide (groups A, C, Y and W-135) conjugate vaccine (MCV4P) Unknown Completed [facility] TDAP (ADACEL) VACCINE Unknown Completed [facility] Influenza Virus Vaccine Quad .5 mL IM 6+ MO (FLUZONE/FLULAVAL/FL UARIX) Unknown Completed [facility] TDAP (ADACEL) VACCINE Unknown Completed [facility] TDAP (ADACEL) VACCINE Unknown Completed [facility] Influenza Virus Vaccine Quad .5 mL IM 6+ MO (FLUZONE/FLULAVAL/FL UARIX) Unknown Completed [facility] HPV Unknown Completed [facility] Meningococcal Polysaccharide (groups A, C, Y and W-135) conjugate vaccine (MCV4P) Unknown Completed [facility] Varicella (varivax)(chicken pox) Unknown Completed [facility] SARS-COV-2 COVID-19 VACCINE - (MODERNA) Unknown Completed [facility] SARS-COV-2 COVID-19 VACCINE - (MODERNA) Unknown Completed [facility] DTaP, Unspecified Formulation Unknown Completed [facility] DTaP, Unspecified Formulation Unknown Completed [facility] DTaP, Unspecified Formulation Unknown Completed [facility] DTaP, Unspecified Formulation Unknown Completed [facility] HEPATITIS A Unknown Completed [facility] Hep B, Adol or Pedi Dosage Unknown Completed [facility] Hep B, Adol or Pedi Dosage Unknown Completed [facility] HIB 4 Dose Schedule Unknown Completed [facility] HIB 4 Dose Schedule Unknown Completed [facility] MMR Unknown Completed [facility] IPV Unknown Completed [facility] IPV Unknown Completed [facility] Poliovirus, Live, Oral, Trivalent Unknown Completed [facility] Poliovirus, Live, Oral, Trivalent Unknown Completed [facility] Tetanus/Diptheria Unknown Completed [facility] TDAP Unknown [facility] [facility] Influenza Virus Vaccine Quad IM, Preserv and ABX Free 6 MO-64 YRS (FLUCELVAX) Unknown Completed [facility] HPV Unknown Completed [facility] Meningococcal Polysaccharide (groups A, C, Y and W-135) conjugate vaccine (MCV4P) Unknown Completed [facility] TDAP (ADACEL) VACCINE Unknown Completed [facility] Influenza Virus Vaccine Quad .5 mL IM 6+ MO (FLUZONE/FLULAVAL/FL UARIX) Unknown Completed [facility] TDAP (ADACEL) VACCINE Unknown Completed [facility] TDAP (ADACEL) VACCINE Unknown Completed [facility] Influenza Virus Vaccine Quad .5 mL IM 6+ MO (FLUZONE/FLULAVAL/FL UARIX) Unknown Completed [facility] HPV Unknown Completed [facility] Meningococcal Polysaccharide (groups A, C, Y and W-135) conjugate vaccine (MCV4P) Unknown Completed [facility] Varicella (varivax)(chicken pox) Unknown Completed [facility] SARS-COV-2 COVID-19 VACCINE - (MODERNA) Unknown Completed [facility] SARS-COV-2 COVID-19 VACCINE - (MODERNA) Unknown Completed [facility] DTaP, Unspecified Formulation Unknown Completed [facility] DTaP, Unspecified Formulation Unknown Completed [facility] DTaP, Unspecified Formulation Unknown Completed [facility] DTaP, Unspecified Formulation Unknown Completed [facility] HEPATITIS A Unknown Completed [facility] Hep B, Adol or Pedi Dosage Unknown Completed [facility] Hep B, Adol or Pedi Dosage Unknown Completed [facility] HIB 4 Dose Schedule Unknown Completed [facility] HIB 4 Dose Schedule Unknown Completed [facility] MMR Unknown Completed [facility] IPV Unknown Completed [facility] IPV Unknown Completed [facility] Poliovirus, Live, Oral, Trivalent Unknown Completed [facility] Poliovirus, Live, Oral, Trivalent Unknown Completed [facility] Tetanus/Diptheria Unknown Completed [facility] TDAP Unknown Completed [facility] Influenza Virus Vaccine Quad IM, Preserv and ABX Free 6 MO-64 YRS (FLUCELVAX) Unknown Completed [facility] HPV Unknown Completed [facility] Meningococcal Polysaccharide (groups A, C, Y and W-135) conjugate vaccine (MCV4P) Unknown Completed [facility] TDAP (ADACEL) VACCINE Unknown Completed [facility] Influenza Virus Vaccine Quad .5 mL IM 6+ MO (FLUZONE/FLULAVAL/FL UARIX) Unknown Completed [facility] TDAP (ADACEL) VACCINE Unknown Completed [facility] TDAP (ADACEL) VACCINE Unknown Completed [facility] Influenza Virus Vaccine Quad .5 mL IM 6+ MO (FLUZONE/FLULAVAL/FL UARIX) Unknown Completed [facility] HPV Unknown Completed [facility] Meningococcal Polysaccharide (groups A, C, Y and W-135) conjugate vaccine (MCV4P) Unknown Completed [facility] Varicella (varivax)(chicken pox) Unknown Completed [facility] SARS-COV-2 COVID-19 VACCINE - (MODERNA) Unknown Completed [facility] SARS-COV-2 COVID-19 VACCINE - (MODERNA) Unknown Completed [facility] DTaP, Unspecified Formulation Unknown Completed [facility] DTaP, Unspecified Formulation Unknown Completed [facility] DTaP, Unspecified Formulation Unknown Completed [facility] DTaP, Unspecified Formulation Unknown Completed [facility] HEPATITIS A Unknown Completed [facility] Hep B, Adol or Pedi Dosage Unknown Completed [facility] Hep B, Adol or Pedi Dosage Unknown Completed [facility] HIB 4 Dose Schedule Unknown Completed [facility] HIB 4 Dose Schedule Unknown Completed [facility] MMR Unknown Completed [facility] IPV Unknown Completed [facility] IPV Unknown Completed [facility] Poliovirus, Live, Oral, Trivalent Unknown Completed [facility] Poliovirus, Live, Oral, Trivalent Unknown Completed [facility] Tetanus/Diptheria Unknown Completed [facility] TDAP Unknown Completed [facility] Influenza Virus Vaccine Quad IM, Preserv and ABX Free 6 MO-64 YRS (FLUCELVAX) Unknown Completed [facility] HPV Unknown Completed [facility] Meningococcal Polysaccharide (groups A, C, Y and W-135) conjugate vaccine (MCV4P) Unknown Completed [facility] TDAP (ADACEL) VACCINE Unknown Completed [facility] Influenza Virus Vaccine Quad .5 mL IM 6+ MO (FLUZONE/FLULAVAL/FL UARIX) Unknown Completed [facility] TDAP (ADACEL) VACCINE Unknown Completed [facility] TDAP (ADACEL) VACCINE Unknown Completed [facility] Influenza Virus Vaccine Quad .5 mL IM 6+ MO (FLUZONE/FLULAVAL/FL UARIX) Unknown Completed [facility] HPV Unknown Completed [facility] Meningococcal Polysaccharide (groups A, C, Y and W-135) conjugate vaccine (MCV4P) Unknown Completed [facility] Varicella (varivax)(chicken pox) Unknown Completed [facility] SARS-COV-2 COVID-19 VACCINE - (MODERNA) Unknown Completed [facility] SARS-COV-2 COVID-19 VACCINE - (MODERNA) Unknown Completed [facility] DTaP, Unspecified Formulation Unknown Completed [facility] DTaP, Unspecified Formulation Unknown Completed [facility] DTaP, Unspecified Formulation Unknown Completed [facility] DTaP, Unspecified Formulation Unknown Completed [facility] HEPATITIS A Unknown Completed [facility] Hep B, Adol or Pedi Dosage Unknown Completed [facility] Hep B, Adol or Pedi Dosage Unknown Completed [facility] HIB 4 Dose Schedule Unknown Completed [facility] HIB 4 Dose Schedule Unknown Completed [facility] MMR Unknown Completed [facility] IPV Unknown Completed [facility] IPV Unknown Completed [facility] Poliovirus, Live, Oral, Trivalent Unknown Completed [facility] Poliovirus, Live, Oral, Trivalent Unknown Completed [facility]heria [facility] Influenza Virus Vaccine Quad IM, Preserv and ABX Free 6 MO-64 YRS (FLUCELVAX) Unknown Completed [facility] HPV Unknown Completed [facility] Meningococcal Polysaccharide (groups A, C, Y and W-135) conjugate vaccine (MCV4P) Unknown Completed [facility] TDAP (ADACEL) VACCINE Unknown Completed [facility] Influenza Virus Vaccine Quad .5 mL IM 6+ MO (FLUZONE/FLULAVAL/FL UARIX) Unknown Completed [facility] TDAP (ADACEL) VACCINE Unknown Completed [facility] TDAP (ADACEL) VACCINE Unknown Completed [facility] Influenza Virus Vaccine Quad .5 mL IM 6+ MO (FLUZONE/FLULAVAL/FL UARIX) Unknown Completed [facility] HPV Unknown Completed [facility] Meningococcal Polysaccharide (groups A, C, Y and W-135) conjugate vaccine (MCV4P) Unknown Completed [facility] Varicella (varivax)(chicken pox) Unknown Completed [facility] SARS-COV-2 COVID-19 VACCINE - (MODERNA) Unknown Completed [facility] SARS-COV-2 COVID-19 VACCINE - (MODERNA) Unknown Completed [facility] DTaP, Unspecified Formulation Unknown Completed [facility] DTaP, Unspecified Formulation Unknown Completed [facility] DTaP, Unspecified Formulation Unknown Completed [facility] DTaP, Unspecified Formulation Unknown Completed [facility] HEPATITIS A Unknown Completed [facility] Hep B, Adol or Pedi Dosage Unknown Completed [facility] Hep B, Adol or Pedi Dosage Unknown Completed [facility] HIB 4 Dose Schedule Unknown Completed [facility] HIB 4 Dose Schedule Unknown Completed [facility] MMR Unknown Completed [facility] IPV Unknown Completed [facility] IPV Unknown Completed [facility] Poliovirus, Live, Oral, Trivalent Unknown Completed [facility] Poliovirus, Live, Oral, Trivalent Unknown Completed [facility] Tetanus/Diptheria Unknown Completed [facility] TDAP Unknown Completed [facility] Influenza Virus Vaccine Quad IM, Preserv and ABX Free 6 MO-64 YRS (FLUCELVAX) Unknown Completed [facility] HPV Unknown Completed [facility] Meningococcal Polysaccharide (groups A, C, Y and W-135) conjugate vaccine (MCV4P) Unknown Completed [facility] TDAP (ADACEL) VACCINE Unknown Completed [facility] Influenza Virus Vaccine Quad .5 mL IM 6+ MO (FLUZONE/FLULAVAL/FL UARIX) Unknown Completed [facility] TDAP (ADACEL) VACCINE Unknown Completed [facility] TDAP (ADACEL) VACCINE Unknown Completed [facility] Influenza Virus Vaccine Quad .5 mL IM 6+ MO (FLUZONE/FLULAVAL/FL UARIX) Unknown Completed [facility] HPV Unknown Completed [facility] Meningococcal Polysaccharide (groups A, C, Y and W-135) conjugate vaccine (MCV4P) Unknown Completed [facility] Varicella (varivax)(chicken pox) Unknown Completed [facility] SARS-COV-2 COVID-19 VACCINE - (MODERNA) Unknown Completed [facility] SARS-COV-2 COVID-19 VACCINE - (MODERNA) Unknown Completed [facility] DTaP, Unspecified Formulation Unknown Completed [facility] DTaP, Unspecified Formulation Unknown Completed [facility] DTaP, Unspecified Formulation Unknown Completed [facility] DTaP, Unspecified Formulation Unknown Completed [facility] HEPATITIS A Unknown Completed [facility] Hep B, Adol or Pedi Dosage Unknown Completed [facility] Hep B, Adol or Pedi Dosage Unknown Completed [facility] HIB 4 Dose Schedule Unknown Completed [facility] HIB 4 Dose Schedule Unknown Completed [facility] MMR Unknown Completed [facility] IPV Unknown Completed [facility] IPV Unknown Completed [facility] Poliovirus, Live, Oral, Trivalent Unknown Completed [facility] Poliovirus, Live, Oral, Trivalent Unknown Completed [facility] Tetanus/Diptheria Unknown Completed [facility] TDAP Unknown Completed [facility] Influenza Virus Vaccine Quad IM, Preserv and ABX Free 6 MO-64 YRS (FLUCELVAX) Unknown Completed [facility] HPV Unknown Completed [facility] Meningococcal Polysaccharide (groups A, C, Y and W-135) conjugate vaccine (MCV4P) Unknown Completed [facility] TDAP (ADACEL) VACCINE Unknown Completed [facility] Influenza Virus Vaccine Quad .5 mL IM 6+ MO (FLUZONE/FLULAVAL/FL UARIX) Unknown Completed [facility] TDAP (ADACEL) VACCINE Unknown Completed [facility] TDAP (ADACEL) VACCINE Unknown Completed [facility] Influenza Virus Vaccine Quad .5 mL IM 6+ MO (FLUZONE/FLULAVAL/FL UARIX) Unknown Completed [facility] HPV Unknown Completed [facility] Meningococcal Polysaccharide (groups A, C, Y and W-135) conjugate vaccine (MCV4P) Unknown Completed [facility] Varicella (varivax)(chicken pox) Unknown Completed [facility] SARS-COV-2 COVID-19 VACCINE - (MODERNA) Unknown Completed [facility] SARS-COV-2 COVID-19 VACCINE - (MODERNA) Unknown Completed [facility] DTaP, Unspecified Formulation Unknown Completed [facility] DTaP, Unspecified Formulation Unknown Completed [facility] DTaP, Unspecified Formulation Unknown Completed [facility] DTaP, Unspecified Formulation Unknown Completed [facility] HEPATITIS A Unknown Completed [facility] Hep B, Adol or Pedi Dosage Unknown Completed [facility] Hep B, Adol or Pedi Dosage Unknown Completed [facility] HIB 4 Dose Schedule Unknown Completed [facility] HIB 4 Dose Schedule Unknown Completed [facility] MMR Unknown Completed [facility] IPV Unknown Completed [facility] IPV Unknown Completed [facility] Poliovirus, Live, Oral, Trivalent Unknown Completed [facility] Poliovirus, Live, Oral, Trivalent Unknown Completed [facility]anus[facility]Diptheria [facility] Influenza Virus Vaccine Quad IM, Preserv and ABX Free 6 MO-64 YRS (FLUCELVAX) Unknown Completed [facility] HPV Unknown Completed [facility] Meningococcal Polysaccharide (groups A, C, Y and W-135) conjugate vaccine (MCV4P) Unknown Completed [facility] TDAP (ADACEL) VACCINE Unknown Completed [facility] Influenza Virus Vaccine Quad .5 mL IM 6+ MO (FLUZONE/FLULAVAL/FL UARIX) Unknown Completed [facility] TDAP (ADACEL) VACCINE Unknown Completed [facility] TDAP (ADACEL) VACCINE Unknown Completed [facility] Influenza Virus Vaccine Quad .5 mL IM 6+ MO (FLUZONE/FLULAVAL/FL UARIX) Unknown Completed [facility] HPV Unknown Completed [facility] Meningococcal Polysaccharide (groups A, C, Y and W-135) conjugate vaccine (MCV4P) Unknown Completed [facility] Varicella (varivax)(chicken pox) Unknown Completed [facility] SARS-COV-2 COVID-19 VACCINE - (MODERNA) Unknown Completed [facility] SARS-COV-2 COVID-19 VACCINE - (MODERNA) Unknown Completed [facility] DTaP, Unspecified Formulation Unknown Completed [facility] DTaP, Unspecified Formulation Unknown Completed [facility] DTaP, Unspecified Formulation Unknown Completed [facility] DTaP, Unspecified Formulation Unknown Completed [facility] HEPATITIS A Unknown Completed [facility] Hep B, Adol or Pedi Dosage Unknown Completed [facility] Hep B, Adol or Pedi Dosage Unknown Completed [facility] HIB 4 Dose Schedule Unknown Completed [facility] HIB 4 Dose Schedule Unknown Completed [facility] MMR Unknown Completed [facility] IPV Unknown Completed [facility] IPV Unknown Completed [facility] Poliovirus, Live, Oral, Trivalent Unknown Completed [facility] Poliovirus, Live, Oral, Trivalent Unknown Completed [facility]heria [facility] Influenza Virus Vaccine Quad IM, Preserv and ABX Free 6 MO-64 YRS (FLUCELVAX) Unknown Completed [facility] HPV Unknown Completed [facility] Meningococcal Polysaccharide (groups A, C, Y and W-135) conjugate vaccine (MCV4P) Unknown Completed [facility] TDAP (ADACEL) VACCINE Unknown Completed [facility] Influenza Virus Vaccine Quad .5 mL IM 6+ MO (FLUZONE/FLULAVAL/FL UARIX) Unknown Completed [facility] TDAP (ADACEL) VACCINE Unknown Completed [facility] TDAP (ADACEL) VACCINE Unknown Completed [facility] Influenza Virus Vaccine Quad .5 mL IM 6+ MO (FLUZONE/FLULAVAL/FL UARIX) Unknown Completed [facility] HPV Unknown Completed [facility] Meningococcal Polysaccharide (groups A, C, Y and W-135) conjugate vaccine (MCV4P) Unknown Completed [facility] Varicella (varivax)(chicken pox) Unknown Completed [facility] SARS-COV-2 COVID-19 VACCINE - (MODERNA) Unknown Completed [facility] SARS-COV-2 COVID-19 VACCINE - (MODERNA) Unknown Completed [facility] DTaP, Unspecified Formulation Unknown Completed [facility] DTaP, Unspecified Formulation Unknown Completed [facility] DTaP, Unspecified Formulation Unknown Completed [facility] DTaP, Unspecified Formulation Unknown Completed [facility] HEPATITIS A Unknown Completed [facility] Hep B, Adol or Pedi Dosage Unknown Completed [facility] Hep B, Adol or Pedi Dosage Unknown Completed [facility] HIB 4 Dose Schedule Unknown Completed [facility] HIB 4 Dose Schedule Unknown Completed [facility] MMR Unknown Completed [facility] IPV Unknown Completed [facility] IPV Unknown Completed [facility] Poliovirus, Live, Oral, Trivalent Unknown Completed [facility] Poliovirus, Live, Oral, Trivalent Unknown Completed [facility] Tetanus/Diptheria Unknown Completed Un [facility] Influenza Virus Vaccine Quad IM, Preserv and ABX Free 6 MO-64 YRS (FLUCELVAX) Unknown Completed [facility] HPV Unknown Completed [facility] Meningococcal Polysaccharide (groups A, C, Y and W-135) conjugate vaccine (MCV4P) Unknown Completed [facility] TDAP (ADACEL) VACCINE Unknown Completed [facility] Influenza Virus Vaccine Quad .5 mL IM 6+ MO (FLUZONE/FLULAVAL/FL UARIX) Unknown Completed [facility] TDAP (ADACEL) VACCINE Unknown Completed [facility] TDAP (ADACEL) VACCINE Unknown Completed [facility] Influenza Virus Vaccine Quad .5 mL IM 6+ MO (FLUZONE/FLULAVAL/FL UARIX) Unknown Completed [facility] HPV Unknown Completed [facility] Meningococcal Polysaccharide (groups A, C, Y and W-135) conjugate vaccine (MCV4P) Unknown Completed [facility] Varicella (varivax)(chicken pox) Unknown Completed [facility] SARS-COV-2 COVID-19 VACCINE - (MODERNA) Unknown Completed [facility] SARS-COV-2 COVID-19 VACCINE - (MODERNA) Unknown Completed [facility] DTaP, Unspecified Formulation Unknown Completed [facility] DTaP, Unspecified Formulation Unknown Completed [facility] DTaP, Unspecified Formulation Unknown Completed [facility] DTaP, Unspecified Formulation Unknown Completed [facility] HEPATITIS A Unknown Completed [facility] Hep B, Adol or Pedi Dosage Unknown Completed [facility] Hep B, Adol or Pedi Dosage Unknown Completed [facility] HIB 4 Dose Schedule Unknown Completed [facility] HIB 4 Dose Schedule Unknown Completed [facility] MMR Unknown Completed [facility] IPV Unknown Completed [facility] IPV Unknown Completed [facility] Poliovirus, Live, Oral, Trivalent Unknown Completed [facility] Poliovirus, Live, Oral, Trivalent Unknown Completed [facility] Tetanus/Diptheria Unknown Completed [facility] TDAP Unknown Completed [facility] Influenza Virus Vaccine Quad IM, Preserv and ABX Free 6 MO-64 YRS (FLUCELVAX) Unknown Completed [facility] HPV Unknown Completed [facility] Meningococcal Polysaccharide (groups A, C, Y and W-135) conjugate vaccine (MCV4P) Unknown Completed [facility] TDAP (ADACEL) VACCINE Unknown Completed [facility] Influenza Virus Vaccine Quad .5 mL IM 6+ MO (FLUZONE/FLULAVAL/FL UARIX) Unknown Completed [facility] TDAP (ADACEL) VACCINE Unknown Completed [facility] TDAP (ADACEL) VACCINE Unknown Completed [facility] Influenza Virus Vaccine Quad .5 mL IM 6+ MO (FLUZONE/FLULAVAL/FL UARIX) Unknown Completed [facility] HPV Unknown Completed [facility] Meningococcal Polysaccharide (groups A, C, Y and W-135) conjugate vaccine (MCV4P) Unknown Completed [facility] Varicella (varivax)(chicken pox) Unknown Completed [facility] SARS-COV-2 COVID-19 VACCINE - (MODERNA) Unknown Completed [facility] SARS-COV-2 COVID-19 VACCINE - (MODERNA) Unknown Completed [facility] DTaP, Unspecified Formulation Unknown Completed [facility] DTaP, Unspecified Formulation Unknown Completed [facility] DTaP, Unspecified Formulation Unknown Completed [facility] DTaP, Unspecified Formulation Unknown Completed [facility] HEPATITIS A Unknown Completed [facility] Hep B, Adol or Pedi Dosage Unknown Completed [facility] Hep B, Adol or Pedi Dosage Unknown Completed [facility] HIB 4 Dose Schedule Unknown Completed [facility] HIB 4 Dose Schedule Unknown Completed [facility] MMR Unknown Completed [facility] IPV Unknown Completed [facility] IPV Unknown Completed [facility] Poliovirus, Live, Oral, Trivalent Unknown Completed [facility] Poliovirus, Live, Oral, Trivalent Unknown Completed [facility] Tetanus/Diptheria Unknown [facility] Completed [facility] Influenza Virus Vaccine Quad IM, Preserv and ABX Free 6 MO-64 YRS (FLUCELVAX) Unknown Completed [facility] HPV Unknown Completed [facility] Meningococcal Polysaccharide (groups A, C, Y and W-135) conjugate vaccine (MCV4P) Unknown Completed [facility] TDAP (ADACEL) VACCINE Unknown Completed [facility] Influenza Virus Vaccine Quad .5 mL IM 6+ MO (FLUZONE/FLULAVAL/FL UARIX) Unknown Completed [facility] TDAP (ADACEL) VACCINE Unknown Completed [facility] TDAP (ADACEL) VACCINE Unknown Completed [facility] Influenza Virus Vaccine Quad .5 mL IM 6+ MO (FLUZONE/FLULAVAL/FL UARIX) Unknown Completed [facility] HPV Unknown Completed [facility] Meningococcal Polysaccharide (groups A, C, Y and W-135) conjugate vaccine (MCV4P) Unknown Completed [facility] Varicella (varivax)(chicken pox) Unknown Completed [facility] SARS-COV-2 COVID-19 VACCINE - (MODERNA) Unknown Completed [facility] SARS-COV-2 COVID-19 VACCINE - (MODERNA) Unknown Completed [facility] DTaP, Unspecified Formulation Unknown Completed [facility] DTaP, Unspecified Formulation Unknown Completed [facility] DTaP, Unspecified Formulation Unknown Completed [facility] DTaP, Unspecified Formulation Unknown Completed [facility] HEPATITIS A Unknown Completed [facility] Hep B, Adol or Pedi Dosage Unknown Completed [facility] Hep B, Adol or Pedi Dosage Unknown Completed [facility] HIB 4 Dose Schedule Unknown Completed [facility] HIB 4 Dose Schedule Unknown Completed [facility] MMR Unknown Completed [facility] IPV Unknown Completed [facility] IPV Unknown Completed [facility] Poliovirus, Live, Oral, Trivalent Unknown Completed [facility] Poliovirus, Live, Oral, Trivalent Unknown Completed [facility] Tetanus/Diptheria Unknown [facility] Completed [facility] Influenza Virus Vaccine Quad IM, Preserv and ABX Free 6 MO-64 YRS (FLUCELVAX) Unknown Completed [facility] HPV Unknown Completed [facility] Meningococcal Polysaccharide (groups A, C, Y and W-135) conjugate vaccine (MCV4P) Unknown Completed [facility] TDAP (ADACEL) VACCINE Unknown Completed [facility] Influenza Virus Vaccine Quad .5 mL IM 6+ MO (FLUZONE/FLULAVAL/FL UARIX) Unknown Completed [facility] TDAP (ADACEL) VACCINE Unknown Completed [facility] TDAP (ADACEL) VACCINE Unknown Completed [facility] Influenza Virus Vaccine Quad .5 mL IM 6+ MO (FLUZONE/FLULAVAL/FL UARIX) Unknown Completed [facility] HPV Unknown Completed [facility] Meningococcal Polysaccharide (groups A, C, Y and W-135) conjugate vaccine (MCV4P) Unknown Completed [facility] Varicella (varivax)(chicken pox) Unknown Completed [facility] SARS-COV-2 COVID-19 VACCINE - (MODERNA) Unknown Completed [facility] SARS-COV-2 COVID-19 VACCINE - (MODERNA) Unknown Completed [facility] DTaP, Unspecified Formulation Unknown Completed [facility] DTaP, Unspecified Formulation Unknown Completed [facility] DTaP, Unspecified Formulation Unknown Completed [facility] DTaP, Unspecified Formulation Unknown Completed [facility] HEPATITIS A Unknown Completed [facility] Hep B, Adol or Pedi Dosage Unknown Completed [facility] Hep B, Adol or Pedi Dosage Unknown Completed [facility] HIB 4 Dose Schedule Unknown Completed [facility] HIB 4 Dose Schedule Unknown Completed [facility] MMR Unknown Completed [facility] IPV Unknown Completed [facility] IPV Unknown Completed [facility] Poliovirus, Live, Oral, Trivalent Unknown Completed [facility] Poliovirus, Live, Oral, Trivalent Unknown Completed [facility] Tetanus/Diptheria Unknown [facility] Completed [facility] Influenza Virus Vaccine Quad IM, Preserv and ABX Free 6 MO-64 YRS (FLUCELVAX) Unknown Completed [facility] HPV Unknown Completed [facility] Meningococcal Polysaccharide (groups A, C, Y and W-135) conjugate vaccine (MCV4P) Unknown Completed [facility] TDAP (ADACEL) VACCINE Unknown Completed [facility] Influenza Virus Vaccine Quad .5 mL IM 6+ MO (FLUZONE/FLULAVAL/FL UARIX) Unknown Completed [facility] TDAP (ADACEL) VACCINE Unknown Completed [facility] TDAP (ADACEL) VACCINE Unknown Completed [facility] Influenza Virus Vaccine Quad .5 mL IM 6+ MO (FLUZONE/FLULAVAL/FL UARIX) Unknown Completed [facility] HPV Unknown Completed [facility] Meningococcal Polysaccharide (groups A, C, Y and W-135) conjugate vaccine (MCV4P) Unknown Completed [facility] Varicella (varivax)(chicken pox) Unknown Completed [facility] SARS-COV-2 COVID-19 VACCINE - (MODERNA) Unknown Completed [facility] SARS-COV-2 COVID-19 VACCINE - (MODERNA) Unknown Completed [facility] DTaP, Unspecified Formulation Unknown Completed [facility] DTaP, Unspecified Formulation Unknown Completed [facility] DTaP, Unspecified Formulation Unknown Completed [facility] DTaP, Unspecified Formulation Unknown Completed [facility] HEPATITIS A Unknown Completed [facility] Hep B, Adol or Pedi Dosage Unknown Completed [facility] Hep B, Adol or Pedi Dosage Unknown Completed [facility] HIB 4 Dose Schedule Unknown Completed [facility] HIB 4 Dose Schedule Unknown Completed [facility] MMR Unknown Completed [facility] IPV Unknown Completed [facility] IPV Unknown Completed [facility] Poliovirus, Live, Oral, Trivalent Unknown Completed [facility] Poliovirus, Live, Oral, Trivalent Unknown Completed [facility] Tetanus/Diptheria Unknown [facility] Completed [facility] Influenza Virus Vaccine Quad IM, Preserv and ABX Free 6 MO-64 YRS (FLUCELVAX) Unknown Completed [facility] HPV Unknown Completed [facility] Meningococcal Polysaccharide (groups A, C, Y and W-135) conjugate vaccine (MCV4P) Unknown Completed [facility] TDAP (ADACEL) VACCINE Unknown Completed [facility] Influenza Virus Vaccine Quad .5 mL IM 6+ MO (FLUZONE/FLULAVAL/FL UARIX) Unknown Completed [facility] TDAP (ADACEL) VACCINE Unknown Completed [facility] TDAP (ADACEL) VACCINE Unknown Completed [facility] Influenza Virus Vaccine Quad .5 mL IM 6+ MO (FLUZONE/FLULAVAL/FL UARIX) Unknown Completed [facility] HPV Unknown Completed [facility] Meningococcal Polysaccharide (groups A, C, Y and W-135) conjugate vaccine (MCV4P) Unknown Completed [facility] Varicella (varivax)(chicken pox) Unknown Completed [facility] SARS-COV-2 COVID-19 VACCINE - (MODERNA) Unknown Completed [facility] SARS-COV-2 COVID-19 VACCINE - (MODERNA) Unknown Completed [facility] DTaP, Unspecified Formulation Unknown Completed [facility] DTaP, Unspecified Formulation Unknown Completed [facility] DTaP, Unspecified Formulation Unknown Completed [facility] DTaP, Unspecified Formulation Unknown Completed [facility] HEPATITIS A Unknown Completed [facility] Hep B, Adol or Pedi Dosage Unknown Completed [facility] Hep B, Adol or Pedi Dosage Unknown Completed [facility] HIB 4 Dose Schedule Unknown Completed [facility] HIB 4 Dose Schedule Unknown Completed [facility] MMR Unknown Completed [facility] IPV Unknown Completed [facility] IPV Unknown Completed [facility] Poliovirus, Live, Oral, Trivalent Unknown Completed [facility] Poliovirus, Live, Oral, Trivalent Unknown Completed [facility] Tetanus/Diptheria Unknown Completed [facility] TDAP Unknown Completed [facility] Influenza Virus Vaccine Quad IM, Preserv and ABX Free 6 MO-64 YRS (FLUCELVAX) Unknown Completed [facility] HPV Unknown Completed [facility] Meningococcal Polysaccharide (groups A, C, Y and W-135) conjugate vaccine (MCV4P) Unknown Completed [facility] TDAP (ADACEL) VACCINE Unknown Completed [facility] Influenza Virus Vaccine Quad .5 mL IM 6+ MO (FLUZONE/FLULAVAL/FL UARIX) Unknown Completed [facility] TDAP (ADACEL) VACCINE Unknown Completed [facility] TDAP (ADACEL) VACCINE Unknown Completed [facility] Influenza Virus Vaccine Quad .5 mL IM 6+ MO (FLUZONE/FLULAVAL/FL UARIX) Unknown Completed [facility] HPV Unknown Completed [facility] Meningococcal Polysaccharide (groups A, C, Y and W-135) conjugate vaccine (MCV4P) Unknown Completed [facility] Varicella (varivax)(chicken pox) Unknown Completed [facility] SARS-COV-2 COVID-19 VACCINE - (MODERNA) Unknown Completed [facility] SARS-COV-2 COVID-19 VACCINE - (MODERNA) Unknown Completed [facility] DTaP, Unspecified Formulation Unknown Completed [facility] DTaP, Unspecified Formulation Unknown Completed [facility] DTaP, Unspecified Formulation Unknown Completed [facility] DTaP, Unspecified Formulation Unknown Completed [facility] HEPATITIS A Unknown Completed [facility] Hep B, Adol or Pedi Dosage Unknown Completed [facility] Hep B, Adol or Pedi Dosage Unknown Completed [facility] HIB 4 Dose Schedule Unknown Completed [facility] HIB 4 Dose Schedule Unknown Completed [facility] MMR Unknown Completed [facility] IPV Unknown Completed [facility] IPV Unknown Completed [facility] Poliovirus, Live, Oral, Trivalent Unknown Completed [facility] Poliovirus, Live, Oral, Trivalent Unknown Completed [facility] Tetanus/Diptheria Unknown Completed [facility] TDAP Unknown Completed [facility] Influenza Virus Vaccine Quad IM, Preserv and ABX Free 6 MO-64 YRS (FLUCELVAX) Unknown Completed [facility] HPV Unknown Completed [facility] Meningococcal Polysaccharide (groups A, C, Y and W-135) conjugate vaccine (MCV4P) Unknown Completed [facility] TDAP (ADACEL) VACCINE Unknown Completed [facility] Influenza Virus Vaccine Quad .5 mL IM 6+ MO (FLUZONE/FLULAVAL/FL UARIX) Unknown Completed [facility] TDAP (ADACEL) VACCINE Unknown Completed [facility] TDAP (ADACEL) VACCINE Unknown Completed [facility] Influenza Virus Vaccine Quad .5 mL IM 6+ MO (FLUZONE/FLULAVAL/FL UARIX) Unknown Completed [facility] HPV Unknown Completed [facility] Meningococcal Polysaccharide (groups A, C, Y and W-135) conjugate vaccine (MCV4P) Unknown Completed [facility] Varicella (varivax)(chicken pox) Unknown Completed [facility] SARS-COV-2 COVID-19 VACCINE - (MODERNA) Unknown Completed [facility] SARS-COV-2 COVID-19 VACCINE - (MODERNA) Unknown Completed [facility] DTaP, Unspecified Formulation Unknown Completed [facility] DTaP, Unspecified Formulation Unknown Completed [facility] DTaP, Unspecified Formulation Unknown Completed [facility] DTaP, Unspecified Formulation Unknown Completed [facility] HEPATITIS A Unknown Completed [facility] Hep B, Adol or Pedi Dosage Unknown Completed [facility] Hep B, Adol or Pedi Dosage Unknown Completed [facility] HIB 4 Dose Schedule Unknown Completed [facility] HIB 4 Dose Schedule Unknown Completed [facility] MMR Unknown Completed [facility] IPV Unknown Completed [facility] IPV Unknown Completed [facility] Poliovirus, Live, Oral, Trivalent Unknown Completed [facility] [facility] Poliovirus, Live, Oral, Trivalent Unknown Completed [facility] Tetanus/Diptheria Unknown Completed [facility] TDAP Unknown Completed [facility] Influenza Virus Vaccine Quad IM, Preserv and ABX Free 6 MO-64 YRS (FLUCELVAX) Unknown Completed [facility] HPV Unknown Completed [facility] Meningococcal Polysaccharide (groups A, C, Y and W-135) conjugate vaccine (MCV4P) Unknown Completed [facility] TDAP (ADACEL) VACCINE Unknown Completed [facility] Influenza Virus Vaccine Quad .5 mL IM 6+ MO (FLUZONE/FLULAVAL/FL UARIX) Unknown Completed [facility] TDAP (ADACEL) VACCINE Unknown Completed [facility] TDAP (ADACEL) VACCINE Unknown Completed [facility] Influenza Virus Vaccine Quad .5 mL IM 6+ MO (FLUZONE/FLULAVAL/FL UARIX) Unknown Completed [facility] HPV Unknown Completed [facility] Meningococcal Polysaccharide (groups A, C, Y and W-135) conjugate vaccine (MCV4P) Unknown Completed [facility] Varicella (varivax)(chicken pox) Unknown Completed [facility] SARS-COV-2 COVID-19 VACCINE - (MODERNA) Unknown Completed [facility] SARS-COV-2 COVID-19 VACCINE - (MODERNA) Unknown Completed [facility] DTaP, Unspecified Formulation Unknown Completed [facility] DTaP, Unspecified Formulation Unknown Completed [facility] DTaP, Unspecified Formulation Unknown Completed [facility] DTaP, Unspecified Formulation Unknown Completed [facility] HEPATITIS A Unknown Completed [facility] Hep B, Adol or Pedi Dosage Unknown Completed [facility] Hep B, Adol or Pedi Dosage Unknown Completed [facility] HIB 4 Dose Schedule Unknown Completed [facility] HIB 4 Dose Schedule Unknown Completed [facility] MMR Unknown Completed [facility] IPV Unknown Completed [facility] IPV Unknown Completed [facility] Poliovirus, Live, Oral, Trivalent Unknown Completed [facility] Poliovirus, Live, Oral, Trivalent Unknown Completed [facility] Tetanus/Diptheria Unknown Completed [facility] TDAP Unknown Completed [facility] Influenza Virus Vaccine Quad IM, Preserv and ABX Free 6 MO-64 YRS (FLUCELVAX) Unknown Completed [facility] DTAP Unknown Completed [facility] HIB 4 Dose Schedule Unknown Completed [facility] Hep B, Adol or Pedi Dosage Unknown Completed [facility] MMR Unknown Completed [facility] Polio (IPV/OPV) Unknown Completed [facility] Varicella (varivax)(chicken pox) Unknown Completed [facility] DTAP Unknown Completed [facility] Hep B, Adol or Pedi Dosage Unknown Completed [facility] HIB 4 Dose Schedule Unknown Completed [facility] Polio (IPV/OPV) Unknown Completed [facility] MMR Unknown Completed [facility] Varicella (varivax)(chicken pox) Unknown Completed [facility] HPV Unknown Completed [facility] Meningococcal Polysaccharide (groups A, C, Y and W-135) conjugate vaccine (MCV4P) Unknown Completed [facility] TDAP (ADACEL) VACCINE Unknown Completed [facility] Influenza Virus Vaccine Quad .5 mL IM 6+ MO (FLUZONE/FLULAVAL/FL UARIX) Unknown Completed [facility] TDAP (ADACEL) VACCINE Unknown Completed [facility] TDAP (ADACEL) VACCINE Unknown Completed [facility] Influenza Virus Vaccine Quad .5 mL IM 6+ MO (FLUZONE/FLULAVAL/FL UARIX) Unknown Completed [facility] HPV Unknown Completed [facility] Meningococcal Polysaccharide (groups A, C, Y and W-135) conjugate vaccine (MCV4P) Unknown Completed [facility] Varicella (varivax)(chicken pox) Unknown Completed [facility] SARS-COV-2 COVID-19 VACCINE - (MODERNA) Unknown Completed [facility] SARS-COV-2 COVID-19 VACCINE - (MODERNA) Unknown Completed [facility] DTaP, Unspecified Formulation Unknown Completed [facility] DTaP, Unspecified Formulation Unknown Completed [facility] DTaP, Unspecified Formulation Unknown Completed [facility] DTaP, Unspecified Formulation Unknown Completed [facility] HEPATITIS A Unknown Completed [facility] Hep B, Adol or Pedi Dosage Unknown Completed [facility] Hep B, Adol or Pedi Dosage Unknown Completed [facility] HIB 4 Dose Schedule Unknown Completed [facility] HIB 4 Dose Schedule Unknown Completed [facility] MMR Unknown Completed [facility] IPV Unknown Completed [facility] IPV Unknown Completed [facility] Poliovirus, Live, Oral, Trivalent Unknown Completed [facility] Poliovirus, Live, Oral, Trivalent Unknown Completed [facility]ria [facility] Influenza Virus Vaccine Quad IM, Preserv and ABX Free 6 MO-64 YRS (FLUCELVAX) Unknown Completed [facility] HPV Unknown Completed [facility] Meningococcal Polysaccharide (groups A, C, Y and W-135) conjugate vaccine (MCV4P) Unknown Completed [facility] TDAP (ADACEL) VACCINE Unknown Completed [facility] Influenza Virus Vaccine Quad .5 mL IM 6+ MO (FLUZONE/FLULAVAL/FL UARIX) Unknown Completed [facility] TDAP (ADACEL) VACCINE Unknown Completed [facility] TDAP (ADACEL) VACCINE Unknown Completed [facility] Influenza Virus Vaccine Quad .5 mL IM 6+ MO (FLUZONE/FLULAVAL/FL UARIX) Unknown Completed [facility] HPV Unknown Completed [facility] Meningococcal Polysaccharide (groups A, C, Y and W-135) conjugate vaccine (MCV4P) Unknown Completed [facility] Varicella (varivax)(chicken pox) Unknown Completed [facility] SARS-COV-2 COVID-19 VACCINE - (MODERNA) Unknown Completed [facility] SARS-COV-2 COVID-19 VACCINE - (MODERNA) Unknown Completed [facility] DTaP, Unspecified Formulation Unknown Completed [facility] DTaP, Unspecified Formulation Unknown Completed [facility] DTaP, Unspecified Formulation Unknown Completed [facility] DTaP, Unspecified Formulation Unknown Completed [facility] HEPATITIS A Unknown Completed [facility] Hep B, Adol or Pedi Dosage Unknown Completed [facility] Hep B, Adol or Pedi Dosage Unknown Completed [facility] HIB 4 Dose Schedule Unknown Completed [facility] HIB 4 Dose Schedule Unknown Completed [facility] MMR Unknown Completed [facility] IPV Unknown Completed [facility] IPV Unknown Completed [facility] Poliovirus, Live, Oral, Trivalent Unknown Completed [facility] Poliovirus, Live, Oral, Trivalent Unknown Completed [facility] Tetanus/Diptheria Unknown [facility] Influenza Virus Vaccine Quad IM, Preserv and ABX Free 6 MO-64 YRS (FLUCELVAX) Unknown Completed [facility] HPV Unknown Completed [facility] Meningococcal Polysaccharide (groups A, C, Y and W-135) conjugate vaccine (MCV4P) Unknown Completed [facility] TDAP (ADACEL) VACCINE Unknown Completed [facility] Influenza Virus Vaccine Quad .5 mL IM 6+ MO (FLUZONE/FLULAVAL/FL UARIX) Unknown Completed [facility] TDAP (ADACEL) VACCINE Unknown Completed [facility] TDAP (ADACEL) VACCINE Unknown Completed [facility] Influenza Virus Vaccine Quad .5 mL IM 6+ MO (FLUZONE/FLULAVAL/FL UARIX) Unknown Completed [facility] HPV Unknown Completed [facility] Meningococcal Polysaccharide (groups A, C, Y and W-135) conjugate vaccine (MCV4P) Unknown Completed [facility] Varicella (varivax)(chicken pox) Unknown Completed [facility] SARS-COV-2 COVID-19 VACCINE - (MODERNA) Unknown Completed [facility] SARS-COV-2 COVID-19 VACCINE - (MODERNA) Unknown Completed [facility] DTaP, Unspecified Formulation Unknown Completed [facility] DTaP, Unspecified Formulation Unknown Completed [facility] DTaP, Unspecified Formulation Unknown Completed [facility] DTaP, Unspecified Formulation Unknown Completed [facility] HEPATITIS A Unknown Completed [facility] Hep B, Adol or Pedi Dosage Unknown Completed [facility] Hep B, Adol or Pedi Dosage Unknown Completed [facility] HIB 4 Dose Schedule Unknown Completed [facility] HIB 4 Dose Schedule Unknown Completed [facility] MMR Unknown Completed [facility] IPV Unknown Completed [facility] IPV Unknown Completed [facility] Poliovirus, Live, Oral, Trivalent Unknown Completed [facility] Poliovirus, Live, Oral, Trivalent Unknown Completed [facility] Tetanus/Diptheria Unknown Completed [facility] TDAP Unknown Completed [facility] Influenza Virus Vaccine Quad IM, Preserv and ABX Free 6 MO-64 YRS (FLUCELVAX) Unknown Completed [facility] HPV Unknown Completed [facility] Meningococcal Polysaccharide (groups A, C, Y and W-135) conjugate vaccine (MCV4P) Unknown Completed [facility] TDAP (ADACEL) VACCINE Unknown Completed [facility] Influenza Virus Vaccine Quad .5 mL IM 6+ MO (FLUZONE/FLULAVAL/FL UARIX) Unknown Completed [facility] TDAP (ADACEL) VACCINE Unknown Completed [facility] TDAP (ADACEL) VACCINE Unknown Completed [facility] Influenza Virus Vaccine Quad .5 mL IM 6+ MO (FLUZONE/FLULAVAL/FL UARIX) Unknown Completed [facility] HPV Unknown Completed [facility] Meningococcal Polysaccharide (groups A, C, Y and W-135) conjugate vaccine (MCV4P) Unknown Completed [facility] Varicella (varivax)(chicken pox) Unknown Completed [facility] SARS-COV-2 COVID-19 VACCINE - (MODERNA) Unknown Completed [facility] SARS-COV-2 COVID-19 VACCINE - (MODERNA) Unknown Completed [facility] DTaP, Unspecified Formulation Unknown Completed [facility] DTaP, Unspecified Formulation Unknown Completed [facility] DTaP, Unspecified Formulation Unknown Completed [facility] DTaP, Unspecified Formulation Unknown Completed [facility] HEPATITIS A Unknown Completed [facility] Hep B, Adol or Pedi Dosage Unknown Completed [facility] Hep B, Adol or Pedi Dosage Unknown Completed [facility] HIB 4 Dose Schedule Unknown Completed [facility] HIB 4 Dose Schedule Unknown Completed [facility] MMR Unknown Completed [facility] IPV Unknown Completed [facility] IPV Unknown Completed [facility] Poliovirus, Live, Oral, Trivalent Unknown Completed [facility] Poliovirus, Live, Oral, Trivalent Unknown Completed [facility] Tetanus/Diptheria Unknown Completed [facility] TDAP Unknown Completed [facility] Influenza Virus Vaccine Quad IM, Preserv and ABX Free 6 MO-64 YRS (FLUCELVAX) Unknown Completed [facility] Vital Signs Vital Name Observation Time Observation Value Comments S ource Systolic blood pressure 2024-04-19 18:11:00 126 mm[Hg] [facility] Diastolic blood pressure 2024-04-19 18:11:00 75 mm[Hg] [facility] Heart rate 2024-04-19 18:11:00 93 /min [facility] Body temperature 2024-04-19 18:11:00 37 [place] [facility] Respiratory rate 2024-04-19 18:11:00 14 /min [facility] Body height 2024-04-19 18:11:00 165.1 cm [facility] Body weight 2024-04-19 18:11:00 102.059 kg [facility] BMI 2024-04-19 18:11:00 37.44 kg/m2 [facility] Oxygen saturation in Arterial blood by Pulse oximetry 2024-04-19 18:11:00 100 /min [facility] Systolic blood pressure 2023-10-10 17:38:00 102 mm[Hg] [facility] Diastolic blood pressure 2023-10-10 17:38:00 78 mm[Hg] [facility] Heart rate 2023-10-10 17:38:00 84 /min [facility] Respiratory rate 2023-10-10 17:38:00 18 /min [facility] Body weight 2023-10-10 17:38:00 92.987 kg [facility] BMI 2023-10-10 17:38:00 34.11 kg/m2 [facility] Oxygen saturation in Arterial blood by Pulse oximetry 2023-10-10 17:38:00 99 /min [facility] Systolic blood pressure 2023-09-27 13:45:00 105 mm[Hg] [facility] Diastolic blood pressure 2023-09-27 13:45:00 52 mm[Hg] [facility] Heart rate 2023-09-27 13:45:00 63 /min [facility] Body temperature 2023-09-27 13:45:00 36.61 [place] [facility] Respiratory rate 2023-09-27 13:45:00 16 /min [facility] Oxygen saturation in Arterial blood by Pulse oximetry 2023-09-27 13:45:00 99 /min [facility] Body weight 2023-09-26 14:00:[address] [facility] BMI 2023-09-26 14:00:00 37.79 kg/m2 [facility] Systolic blood pressure 2023-09-18 21:43:00 119 mm[Hg] [facility] Diastolic blood pressure 2023-09-18 21:43:00 75 mm[Hg] [facility] Heart rate 2023-09-18 21:43:00 86 /min [facility] Body temperature 2023-09-18 21:43:00 36.78 [place] [facility] Respiratory rate 2023-09-18 21:43:00 18 /min [facility] Body height 2023-09-18 21:43:[address] [facility] Body weight 2023-09-18 21:43:00 102.241 kg [facility] BMI 2023-09-18 21:43:00 37.51 kg/m2 [facility] Oxygen saturation in Arterial blood by Pulse oximetry 2023-09-18 21:43:00 100 /min [facility] Systolic blood pressure 2023-09-16 09:30:00 118 mm[Hg] [facility] Diastolic blood pressure 2023-09-16 09:30:00 70 mm[Hg] [facility] Heart rate 2023-09-16 09:30:00 93 /min [facility] Body temperature 2023-09-16 09:30:00 36.83 [place] [facility] Oxygen saturation in Arterial blood by Pulse oximetry 2023-09-16 09:30:00 100 /min [facility] Respiratory rate 2023-09-16 07:45:00 17 /min [facility] Systolic blood pressure 2023-09-11 22:18:00 125 mm[Hg] [facility] Diastolic blood pressure 2023-09-11 22:18:00 73 mm[Hg] [facility] Heart rate 2023-09-11 22:18:00 86 /min [facility] Body temperature 2023-09-11 22:18:00 37.28 [place] [facility] Respiratory rate 2023-09-11 22:18:00 16 /min [facility] Body weight 2023-09-11 22:18:00 98.612 kg [facility] BMI 2023-09-11 22:18:00 36.18 kg/m2 [facility] Oxygen saturation in Arterial blood by Pulse oximetry 2023-09-11 22:18:00 100 /min [facility] Systolic blood pressure 2023-09-08 03:30:00 125 mm[Hg] [facility] Diastolic blood pressure 2023-09-08 03:30:00 65 mm[Hg] [facility] Heart rate 2023-09-08 03:30:00 92 /min [facility] Oxygen saturation in Arterial blood by Pulse oximetry 2023-09-08 03:30:00 100 /min [facility] Body temperature 2023-09-08 02:40:00 36.61 [place] [facility] Respiratory rate 2023-09-08 02:40:00 17 /min [facility] Systolic blood pressure 2023-09-03 22:00:00 112 mm[Hg] [facility] Diastolic blood pressure 2023-09-03 22:00:00 70 mm[Hg] [facility] Heart rate 2023-09-03 22:00:00 109 /min [facility] Oxygen saturation in Arterial blood by Pulse oximetry 2023-09-03 22:00:00 100 /min [facility] Body temperature 2023-09-03 21:37:00 36.78 [place] [facility] Respiratory rate 2023-09-03 21:37:00 16 /min [facility] Body height 2023-09-03 21:13:00 165.1 cm [facility] Body weight 2023-09-03 21:13:00 96.798 kg [facility] BMI 2023-09-03 21:13:00 35.51 kg/m2 [facility] Systolic blood pressure 2023-09-02 20:21:00 113 mm[Hg] [facility] Diastolic blood pressure 2023-09-02 20:21:00 67 mm[Hg] [facility] Heart rate 2023-09-02 20:21:00 93 /min [facility] Body temperature 2023-09-02 20:21:00 36.83 [place] [facility] Respiratory rate 2023-09-02 20:21:00 16 /min [facility] Body height 2023-09-02 20:21:00 165.1 cm [facility] Body weight 2023-09-02 20:21:[address] [facility] BMI 2023-09-02 20:21:00 34.95 kg/m2 [facility] Oxygen saturation in Arterial blood by Pulse oximetry 2023-09-02 20:21:00 97 /min [facility] Systolic blood pressure 2023-08-28 17:08:00 108 mm[Hg] [facility] Diastolic blood pressure 2023-08-28 17:08:00 69 mm[Hg] [facility] Heart rate 2023-08-28 17:08:00 90 /min [facility] Body temperature 2023-08-28 17:08:00 36.5 [place] [facility] Body height 2023-08-28 17:08:[address] [facility] Body weight 2023-08-28 17:08:[address] [facility] BMI 2023-08-28 17:08:00 34.65 kg/m2 [facility] Heart rate 2023-08-22 18:00:00 84 /min [facility] Oxygen saturation in Arterial blood by Pulse oximetry 2023-08-22 18:00:00 99 /min [facility] Systolic blood pressure 2023-08-22 17:00:00 123 mm[Hg] [facility] Diastolic blood pressure 2023-08-22 17:00:00 63 mm[Hg] [facility] Body temperature 2023-08-22 17:00:00 36.06 Roselia [facility] Respiratory rate 2023-08-22 17:00:00 16 /min [facility] Body weight 2023-08-20 21:50:[address] [facility] BMI 2023-08-20 21:50:00 36.52 kg/m2 [facility] Body height 2023-08-20 21:01:[address] [facility] Systolic blood pressure 2023-08-04 16:25:00 108 mm[Hg] [facility] Diastolic blood pressure 2023-08-04 16:25:00 64 mm[Hg] [facility] Heart rate 2023-08-04 16:25:00 87 /min [facility] temperature 2023-08-04 16:25:00 36.56 Ros[place] [facility] Respiratory rate 2023-08-04 16:25:00 18 /min [facility] Body height 2023-08-04 16:25:[address] [facility] Body weight 2023-08-04 16:25:00 94.802 kg [facility] BMI 2023-08-04 16:25:00 34.78 kg/m2 [facility] Oxygen saturation in Arterial blood by Pulse oximetry 2023-08-04 16:25:00 99 /min [facility] Heart rate 2023-07-29 09:45:00 92 /min [facility] Oxygen saturation in Arterial blood by Pulse oximetry 2023-07-29 09:45:00 100 /min [facility] Body height 2023-07-29 09:38:[address] [facility] Body weight 2023-07-29 09:38:00 97.614 kg [facility] BMI 2023-07-29 09:38:00 35.81 kg/m2 [facility] Systolic blood pressure 2023-07-29 09:30:00 119 mm[Hg] [facility] Diastolic blood pressure 2023-07-29 09:30:00 64 mm[Hg] [facility] Body temperature 2023-07-29 09:30:00 36.67 Ros[place] [facility] Heart rate 2023-06-14 20:00:00 63 /min [facility] Oxygen saturation in Arterial blood by Pulse oximetry 2023-06-14 20:00:00 100 /min [facility] Systolic blood pressure 2023-06-14 18:02:00 112 mm[Hg] [facility] Diastolic blood pressure 2023-06-14 18:02:00 58 mm[Hg] [facility] Body temperature 2023-06-14 18:02:00 36.89 Ros[place] [facility] Respiratory rate 2023-06-14 18:02:00 16 /min [facility] Body height 2023-06-14 17:49:00 165.1 cm [facility] Body weight 2023-06-14 17:49:[address] [facility] BMI 2023-06-14 17:49:00 34.25 kg/m2 [facility] Systolic blood pressure 2023-05-03 22:46:00 117 mm[Hg] [facility] Diastolic blood pressure 2023-05-03 22:46:00 70 mm[Hg] [facility] Heart rate 2023-05-03 22:46:00 94 /min [facility] Body temperature 2023-05-03 22:46:00 36.67 Ros[place] [facility] Respiratory rate 2023-05-03 22:46:00 18 /min [facility] Oxygen saturation in Arterial blood by Pulse oximetry 2023-05-03 22:46:00 99 /min [facility] Heart rate 2023-04-18 21:00:00 77 /min [facility] Oxygen saturation in Arterial blood by Pulse oximetry 2023-04-18 21:00:00 100 /min [facility] Systolic blood pressure 2023-04-18 20:00:00 138 mm[Hg] [facility] Diastolic blood pressure 2023-04-18 20:00:00 75 mm[Hg] [facility] Body temperature 2023-04-18 17:42:00 37.33 Ros[place] [facility] Respiratory rate 2023-04-18 17:42:00 16 /min [facility] Body height 2023-04-18 17:42:[address] [facility] Body weight 2023-04-18 17:42:00 92.987 kg [facility] BMI 2023-04-18 17:42:00 34.11 kg/m2 [facility] Systolic blood pressure 2023-04-02 13:43:00 122 mm[Hg] [facility] Diastolic blood pressure 2023-04-02 13:43:00 62 mm[Hg] [facility] Heart rate 2023-04-02 13:43:00 98 /min Un[facility] Body temperature 2023-04-02 13:43:00 36.61 Ros[place] [facility] Respiratory rate 2023-04-02 13:43:00 18 /min [facility] Body height 2023-04-02 13:43:[address] [facility] Body weight 2023-04-02 13:43:[address] [facility] BMI 2023-04-02 13:43:00 34.70 kg/m2 [facility] Systolic blood pressure 2023-03-11 18:08:00 119 mm[Hg] [facility] Diastolic blood pressure 2023-03-11 18:08:00 68 mm[Hg] [facility] Heart rate 2023-03-11 18:08:00 87 /min [facility] Body temperature 2023-03-11 18:08:00 36.78 Ros[place] [facility] Respiratory rate 2023-03-11 18:08:00 18 /min [facility] Body height 2023-03-11 18:08:[address] [facility] Body weight 2023-03-11 18:08:[address] [facility] BMI 2023-03-11 18:08:00 34.13 kg/m2 [facility] Systolic blood pressure 2023-02-11 18:05:00 112 mm[Hg] [facility] Diastolic blood pressure 2023-02-11 18:05:00 64 mm[Hg] [facility] Heart rate 2023-02-11 18:05:00 73 /min [facility] Body temperature 2023-02-11 18:05:00 36.78 Ros[place] [facility] Respiratory rate 2023-02-11 18:05:00 18 /min [facility] Body height 2023-02-11 18:05:[address] [facility] Body weight 2023-02-11 18:05:00 88.508 kg [facility] BMI 2023-02-11 18:05:00 32.47 kg/m2 [facility] Systolic blood pressure 2022-01-17 03:00:00 119 mm[Hg] [facility] Diastolic blood pressure 2022-01-17 03:00:00 62 mm[Hg] [facility] Heart rate 2022-01-17 03:00:00 68 /min [facility] Respiratory rate 2022-01-17 03:00:00 16 /min [facility] Oxygen saturation in Arterial blood by Pulse oximetry 2022-01-17 03:00:00 100 /min [facility] Body temperature 2022-01-17 02:03:00 37.28 Ros[place] [facility] Body height 2022-01-17 02:03:00 165.1 cm [facility] Body weight 2022-01-17 02:03:00 90.719 kg [facility] BMI 2022-01-17 02:03:00 33.28 kg/m2 [facility] Systolic blood pressure 2019-05-27 20:39:00 107 mm[Hg] [facility] Diastolic blood pressure 2019-05-27 20:39:00 63 mm[Hg] [facility] Heart rate 2019-05-27 20:39:00 77 /min [facility] Body temperature 2019-05-27 20:39:00 36.94 Roselia [facility] Respiratory rate 2019-05-27 20:39:00 18 /min [facility] Body height 2019-05-27 20:39:00 165.1 cm [facility] Body weight 2019-05-27 20:39:00 98.431 kg [facility] BMI 2019-05-27 20:39:00 36.11 kg/m2 [facility] Systolic blood pressure 2019-05-27 20:39:00 107 mm[Hg] [facility] Diastolic blood pressure 2019-05-27 20:39:00 63 mm[Hg] [facility] Heart rate 2019-05-27 20:39:00 77 /min Unive [facility] Body temperature 2019-05-27 20:39:00 36.94 Roselia [facility] Respiratory rate 2019-05-27 20:39:00 18 /min [facility] Body height 2019-05-27 20:39:[address] [facility] Body weight 2019-05-27 20:39:[address] [facility] BMI 2019-05-27 20:39:00 36.11 kg/m2 [facility] Systolic blood pressure 2019-05-17 21:39:00 114 mm[Hg] [facility] Diastolic blood pressure 2019-05-17 21:39:00 71 mm[Hg] [facility] Heart rate 2019-05-17 21:39:00 103 /min Unive [facility] Body temperature 2019-05-17 21:39:00 37.11 Roselia [facility] Respiratory rate 2019-05-17 21:39:00 18 /min [facility] Body height 2019-05-17 21:39:[address] [facility] Body weight 2019-05-17 21:39:[address] [facility] BMI 2019-05-17 21:39:00 36.74 kg/m2 [facility] Systolic blood pressure 2019-05-17 21:39:00 114 mm[Hg] [facility] Diastolic blood pressure 2019-05-17 21:39:00 71 mm[Hg] [facility] Heart rate 2019-05-17 21:39:00 103 /min Unive [facility] Body temperature 2019-05-17 21:39:00 37.11 Roselia [facility] Respiratory rate 2019-05-17 21:39:00 18 /min [facility] Body height 2019-05-17 21:39:[address] [facility] Body weight 2019-05-17 21:39:[address] [facility] BMI 2019-05-17 21:39:00 36.74 kg/m2 [facility] Systolic blood pressure 2019-05-04 18:09:00 135 mm[Hg] [facility] Diastolic blood pressure 2019-05-04 18:09:00 68 mm[Hg] [facility] Heart rate 2019-05-04 18:09:00 96 /min [facility] Body temperature 2019-05-04 18:09:00 36.78 Roselia [facility] Respiratory rate 2019-05-04 18:09:00 22 /min [facility] Oxygen saturation in Arterial blood by Pulse oximetry 2019-05-04 18:09:00 100 /min [facility] Systolic blood pressure 2019-04-29 21:00:00 127 mm[Hg] [facility] Diastolic blood pressure 2019-04-29 21:00:00 68 mm[Hg] [facility] Heart rate 2019-04-29 21:00:00 87 /min [facility] Body temperature 2019-04-29 21:00:00 36.39 Roselia [facility] Respiratory rate 2019-04-29 21:00:00 20 /min [facility] Body height 2019-04-29 21:00:00 165.1 cm [facility] Body weight 2019-04-29 21:00:00 98.431 kg [facility] BMI 2019-04-29 21:00:00 36.11 kg/m2 [facility] Body Temperature 2024-03-22 16:57:00 97.90 degrees [facility] Heart Rate 2024-03-22 16:57:00 101.00 /min [facility] Respiratory Rate 2024-03-22 16:57:00 20.00 /min [facility] BP Systolic 2024-03-22 16:57:00 120 mm[Hg] [facility] BP Diastolic 2024-03-22 16:57:00 82 mm[Hg] Rui phen [facility] Weight Measured 2024-03-22 16:57:00 223.00 pounds [facility] Height Measured 2024-03-22 16:57:00 66.00 inches [facility] Procedures Procedure Date / Time Performed Performing Clinician Source POCT TEST 2024-04-19 21:00:00 Evonne Lozoya [facility] CBC WITH DIFF 2023-09-27 00:33:00 [facility] CENTRAL NEURAXIAL BLOCK 2023-09-25 09:00:00 Xenia Venegas [facility] URINE DRUG (IMMUNOASSAY) - COMPREHENSIVE DRUG SCREEN 2023-09-25 08:17:00 Anthony [facility] CBC WITH DIFF 2023-09-25 08:05:00 Cruz [facility] HEPATITIS B SURFACE ANTIGEN 2023-09-25 08:05:00 Anthony [facility] HB ABO GROUPING 2023-09-25 08:05:00 Cruz [facility] RHO (D) IMMUNE GLOBULIN 2023-09-25 08:05:00 Anthony [facility] ADC OR BRIDGER ONLY - RPR 2023-09-25 08:05:00 Anthony [facility] HIV 1/2 AG-AB WITH REFLEX 2023-09-25 08:05:00 Anthony [facility] URINE DRUG (IMMUNOASSAY) - COMPREHENSIVE DRUG SCREEN 2023-09-18 22:29:00 Anthony [facility] POCT URINALYSIS W/O SPECIFIC GRAVITY 2023-09-18 00:00:00 Anthony [facility] ASSIGNMENT OF BENEFITS 2023-09-16 10:25:05 Docto r Unassigned, [place] [facility] CONSENT/REFUSAL FOR DIAGNOSIS AND TREATMENT 2023-09-16 10:23:26 Doctor Unassigned, [place] [facility] CBC WITH DIFF 2023-09-16 09:30:00 Jordan Wilkinson [facility] COMP. METABOLIC PANEL (27323) 2023-09-16 08:49:00 Ariela Wilkinson [facility] >14 WEEKS US LIMITED 2023-09-11 22:52:27 Cruz [facility] POCT URINALYSIS W/O SPECIFIC GRAVITY 2023-09-11 00:00:00 Cruz [facility] ADC ONLY - FERN TEST 2023-09-08 02:41:00 AbdulazizMary bartholomew Guerrero [facility] POCT URINALYSIS W/O SPECIFIC GRAVITY 2023-08-28 00:00:00 Kory Cruz [facility] SECOND AND THIRD TRIMESTER ULTRASOUND 2023-08-22 19:52:00 Krystal Low [facility] POCT GLUCOSE (AUTOMATED) 2023-08-22 01:43:00 Eloy Chavez [facility] TRANSTHORACIC ECHO (TTE) COMPLETE 2023-08-21 14:54:52 [facility] RHYTHM STRIP 2023-08-21 14:04:01 Reynaldo [facility] THYROID STIMULATING HORMONE 2023-08-21 13:21:00 Mayra Welch [facility] BASIC METABOLIC PANEL (NA, K, CL, CO2, GLUCOSE, BUN, CREATININE, CA) 2023-08-21 13:21:00 Mayra Welch [facility] GLYCOSYLATED HEMOGLOBIN (A1C) 2023-08-21 13:21:00 Tito Pedersen [facility] RUBELLA SCREEN IGG 2023-08-21 13:21:[address] [facility] [facility] S[facility]EN 2023-08-21 13:21:00 Tito Pedersen [facility] HEPATITIS B SURFACE ANTIGEN 2023-08-21 13:21:00 Tito Pedersen [facility] HB ABO GROUPING 2023-08-21 13:21:00 Tito Pedersen [facility] HIV 1/2 AG-AB WITH REFLEX 2023-08-21 13:21:00 Tito Pedersen [facility] SYPHILIS IGG/IGM 2023-08-21 13:21:[address] [facility] PROTHROMBIN TIME / INR 2023-08-21 01:40:00 Kory Cruz am [facility] ACTIVATED PARTIAL THRMPLAS BLANCA 2023-08-21 01:40:00 Kory Cruz [facility] URINE CULTURE 2023-08-21 01:31:00 Kory Cruz [facility] URINALYSIS 2023-08-21 01:16:00 CruzKory [facility] ADC CLC OR LCC ONLY - WET PREP 2023-08-21 01:16:00 [facility] STREPTOCOCC[facility] BY PCR 2023-08-21 01:16:00 Anthony [facility] CBC WITH DIFF 2023-08-21 01:15:00 Anthony Kory Pedro [facility] URINE DRUG (IMMUNOASSAY) - COMPREHENSIVE DRUG SCREEN 2023-08-21 01:14:00 Anthony [facility] HB ABO GROUPING 2023-08-21 01:14:00 Anthony Kory [facility] GC & CHLAMYDIA AMPLIFIED ASSAY 2023-08-21 01:13:00 [facility] BIOPHYSICAL PROFILE 2023-08-20 23:58:11 Anthony [facility] US PELVIS > 14 WEEKS 2023-08-20 23:57:55 Anthony [facility] XR SHOULDER 2+ VW LEFT 2023-08-20 21:31:00 Selwyn Quintero alok [facility] HOSPITAL ADMISSION 2023-08-20 06:01:00 Doctor Un assigned, [place] [facility] TDAP VACCINE, >11 YRS, IM 2023-08-04 19:02:35 Anthony [facility] FLU VACC ([id number]), 6 MO-64 YRS, .5ML, IM, QUAD (FLUCELVAX) 2023-08-04 19:02:35 Anthony [facility] POCT URINALYSIS W/O SPECIFIC GRAVITY 2023-08-04 00:00:00 Anthony [facility] URINE DRUG (IMMUNOASSAY) - COMPREHENSIVE DRUG SCREEN 2023-07-29 09:49:00 [facility] URINALYSIS 2023-07-29 09:49:00 Jaja [facility] US PELVIS > 14 WEEKS 2023-06-14 20:12:00 Anthony [facility] URINALYSIS 2023-06-14 18:55:00 Kory Cruz [facility] ADC ONLY - FERN TEST 2023-06-14 18:55:00 Kory Cruz [facility] ASSIGNMENT OF BENEFITS 2023-06-14 17:37:47 Docto r Unassigned, [place] [facility] CONSENT/REFUSAL FOR DIAGNOSIS AND TREATMENT 2023-06-14 17:36:34 Doctor Unassigned, [place] [facility] SECOND AND THIRD TRIMESTER ULTRASOUND 2023-05-28 21:05:00 Krystal Low [facility] SECOND AND THIRD TRIMESTER ULTRASOUND 2023-05-28 20:25:00 Krystal Low [facility] URINE DRUG (IMMUNOASSAY) - COMPREHENSIVE DRUG SCREEN 2023-04-18 18:48:00 Jaja Ariela [facility] ADC CLC OR LCC ONLY - WET PREP 2023-04-18 18:48:00 [facility]aja [facility] CONSENT/REFUSAL FOR DIAGNOSIS AND TREATMENT 2023-04-18 16:42:47 Doctor Unassigned, [place] [facility] POCT URINALYSIS 2023-04-02 13:44:00 Krystal Low [facility] EXTERNAL PROVIDER RECORDS 2023-03-21 05:01:00 Doctor Unassigned, [place] [facility] POCT URINALYSIS 2023-03-11 18:00:00 Krystal Low [facility] AUTHORIZATION FOR RELEASE OF PHI 2023-03-11 05:01:00 Doctor Unassigned, [place] [facility] POCT URINALYSIS W/O SPECIFIC GRAVITY 2023-02-11 18:03:00 Krystal Low [facility] POCT TEST 2023-02-11 18:02:00 Rhona Low [facility] REPORT OF 2023-02-11 05:01:00 Doctor Kiran harper, [place] [facility] LIPASE 2022-01-17 03:09:00 [facility] COMP. METABOLIC PANEL (50169) 2022-01-17 03:09:00 Yvonne Siddiqi [facility] CBC WITH DIFF 2022-01-17 03:09:00 Yvonne Siddiqi [facility] POCT TEST 2022-01-17 02:14:00 Lakhwinder Weiner [facility] URINALYSIS 2022-01-17 02:10:00 Abraham Weiner [facility] NOTICE OF PRIVACY PRACTICES 2022-01-17 01:36:28 Doctor Unassigned, [place] [facility] CONSENT/REFUSAL FOR DIAGNOSIS AND TREATMENT 2022-01-17 01:36:18 Doctor Unassigned, [place] [facility] TDAP (ADACEL) IMMUNIZATION 2019-05-27 20:41:37 Josy Chaudhary [facility] US ABDOMEN LIMITED 2019-05-17 22:45:16 Josy Chaudhary [facility] ASSIGNMENT OF BENEFITS 2019-05-17 22:12:10 Docto r Unassigned, [place] [facility] URINALYSIS 2019-05-04 18:55:00 Kory Cruz [facility] ADC CLC OR LCC ONLY - WET PREP 2019-05-04 18:55:00 Kory Cruz [facility] ADC ONLY - FERN TEST 2019-05-04 18:54:00 Kory Cruz [facility] CONSENT/REFUSAL FOR DIAGNOSIS AND TREATMENT 2019-05-04 17:47:16 Doctor Unassigned, [place] [facility] Encounters Start Date/Time End Date/Time Encounter Type Admission Type Attending Clinicians Care Facility Care Department Encounter ID Source 2023-09-16 06:18:56 Outpatient X [facility] [id number] [facility] 2023-07-29 06:14:02 Outpatient X [facility] [id number] [facility] 2023-04-18 17:24:48 Outpatient X [facility] [id number] [facility] 2022-08-02 05:16:57 Emergency HFD HFD [id number] [facility] ent 2021-07-08 14:21:14 Outpatient [facility] [id number] [facility] 2024-05-10 15:30:10 2024-05-10 15:30:10 Outpatient [facility] [id number] [facility] 2024-05-10 00:00:00 2024-05-10 00:00:00 Outpatient Visit [facility] [id number] [facility] 2024-04-19 13:13:00 2024-04-19 17:01:00 Emergency X DORIAN LOZOY[facility] [id number] [facility] 2024-04-19 13:13:00 2024-04-19 17:01:00 Emergency Dorian Lozoya [facility] [id number] [facility] 2024-03-22 16:54:59 2024-03-22 16:54:59 Outpatient [facility] [id number] [facility] 2024-03-22 00:00:00 2024-03-22 00:00:00 Outpatient Visit [facility] [id number] [facility] 2023-09-16 00:00:00 2024-03-09 02:05:43 Mobile Device Encounter Olamide Fraga [facility] ..[id number] [id number] [facility] 2024-01-05 09:02:36 2024-01-05 09:02:36 Outpatient [facility] [id number] [facility] 2024-01-02 14:31:28 2024-01-02 14:31:28 Outpatient [facility] [id number] [facility] 2023-11-28 00:00:00 2023-11-28 00:00:00 Patient Secure Msg Doctor Unassigned, [place] [facility] [id number] 134 [id number] [facility] 2023-11-21 00:00:00 2023-11-21 00:00:00 Telephone Kory Cruz [facility] [id number] [facility] 2023-11-15 00:00:00 2023-11-15 00:00:00 Telephone Kory Cruz [facility] [id number] [id number] 134 [id number] [facility] 2023-10-10 10:30:00 2023-10-10 12:02:47 Outpatient R [facility]ORY CRUZ [facility] [id number] [facility] 2023-10-10 10:30:00 2023-10-10 12:02:47 Routine Visit Kory Cruz [facility] [id number] [id number] [id number] [id number] 134 [id number] [facility] 2023-10-10 00:00:00 2023-10-10 00:00:00 Patient Secure Msg Doctor Unassigned, [place] [facility] [id number] [id number] 4.2.7.2.686 [id number] 134 [id number] [facility] 2023-10-09 00:00:00 2023-10-09 00:00:00 Telephone Kory Cruz [facility] 1.2840.114 350.1.13.10 4.2.7.2.686 [id number] 134 [id number] [facility] 2023-10-09 00:00:00 2023-10-09 00:00:00 Patient Secure Msg Doctor Unassigned, [employer]ESSIO NAL BUILDING 1..840.114 350.1.13.10 4.2.7.2.686 [id number] 134 [id number] [facility] 2023-09-25 01:05:00 2023-09-27 12:55:00 Inpatient X KORY CRUZ [facility] D[facility]ICK [id number] [facility] 2023-09-25 01:05:00 2023-09-27 12:55:00 Hospital Encounter Kory Cruz [facility] 1..840.114 350.1.13.10 4.2.7.2.686 [id number] [id number] [facility] 2023-09-25 16:00:00 2023-09-25 16:00:00 Outpatient R KORY CRUZ [facility] [id number] [facility] 2023-09-25 03:00:00 2023-09-25 08:52:00 Anesthesia Event Xenia Angel Michelle [facility] 1..840.114 350.1.13.10 4.2.7.2.686 [id number] [id number] [facility] 2023-09-24 00:00:00 2023-09-24 00:00:00 Telephone [facility] BU[facility] 1..840.114 350.1.13.10 4.2.7.2.686 [id number] 134 [id number] [facility] 2023-09-19 00:10:00 2023-09-19 00:10:00 Outpatient P CANO-EVER S, ARIELA CANO-EVER S, ARIELA [facility] [id number] [facility] 2023-09-18 15:15:00 2023-09-18 16:21:53 Outpatient R KORY CRUZ [facility] [id number] [facility] 2023-09-18 15:15:00 2023-09-18 16:21:53 Routine Visit Kory Cruz [facility] 1.2.840.114 350.1.13.10 4.2.7.2.686 [id number] [facility] 2023-09-16 01:28:00 2023-09-16 03:45:00 Outpatient X CANO-EVER S, ARIELA CANO-EVER S, ARIELA [facility] [id number] [facility] 2023-09-16 01:28:00 2023-09-16 03:45:00 Emergency Cano-Ever s, Ariela [facility] 1.2.840.114 350.1.13.10 4.2.7.2.686 [id number] [id number] [facility] 2023-09-11 16:15:00 2023-09-11 16:50:18 Outpatient R KORY CRUZ [facility] [id number] [facility] 2023-09-11 16:15:00 2023-09-11 16:50:18 Routine Visit Kory Cruz [facility] 1.2.840.114 350.1.13.10 4.2.7.2.686 [id number] [facility] 2023-09-11 14:45:00 2023-09-11 15:00:00 Perioperative Assistant Visit 2, Adc Lab Kory Cruz [facility] BUILDING 1.2.840.114 350.1.13.10 4.2.7.2.686 [id number] [facility] 2023-09-11 11:00:00 2023-09-11 11:00:00 Outpatient R KORY CRUZ [facility] [id number] [facility] 2023-09-09 16:00:00 2023-09-09 16:00:00 Outpatient R KORY CRUZ [facility] [id number] [facility] 2023-09-08 00:00:00 2023-09-08 00:00:00 Telephone Kory Cruz [facility] 1.84.114 350.1.13.10 4.2.7.2.686 [id number] [facility] 2023-09-07 20:22:00 2023-09-07 22:06:00 Outpatient X MARY AVINA [facility] [id number] [facility] 2023-09-07 20:22:00 2023-09-07 22:06:[address] [facility] 1.84.114 350.1.13.10 4.2.7.2.686 [id number] [id number] [facility] 2023-09-03 15:18:00 2023-09-03 17:33:00 Outpatient X KORY CRUZ [facility] [id number] [facility] 2023-09-03 15:18:00 2023-09-03 17:33:00 Emergency Kory Cruz [facility] .84.114 350.1.13.10 4.2.7.2.686 [id number] [id number] [facility] 2023-09-02 14:23:00 2023-09-02 15:18:00 Outpatient P MARY AVINA [facility] [id number] [facility] 2023-09-02 14:23:00 2023-09-02 15:18:00 [facility] 1.84.114 350.1.13.10 4.2.7.2.686 [id number] [id number] [facility] 2023-08-28 10:45:00 2023-08-28 11:28:38 Outpatient R KORY CRUZ [facility] [id number] [facility] 2023-08-28 10:45:00 2023-08-28 11:28:38 Routine Visit Kory Cruz [facility] 1.0.114 350.1.13.10 4.2.7.2.686 [id number] [facility] 2023-08-20 15:22:00 2023-08-22 16:30:00 Outpatient X SCOTT [facility] D[facility] [id number] [facility] 2023-08-20 15:22:00 2023-08-22 16:30:00 Emergency Nacho Quintero Vien Cam [place], [facility] 1..114 350.1.13.10 4.2.7.2.686 [id number] 135 [id number] [facility] 2023-08-22 13:00:00 2023-08-22 13:54:45 Perioperative Assistant Visit 2, [facility] Kristal Chung [facility] 1..114 350.1.13.10 4.2.7.2.686 [id number] [facility] 2023-08-21 20:00:01 2023-08-21 20:00:01 Anesthesia Event Xenia Angel [facility] 1..114 350.1.13.10 4.2.7.2.686 [id number] [id number] [facility] 2023-08-18 14:15:00 2023-08-18 14:15:00 Outpatient KORY HORVATH [facility] [id number] [facility] 2023-08-08 13:45:00 2023-08-08 13:45:00 Outpatient R [facility] [id number] [facility] 2023-08-06 00:00:00 2023-08-06 00:00:00 Patient Secure Msg Doctor Unassigned, [employer] [facility] 1.0114 350.1.13.10 4.2.7.2.686 [id number] [facility] 2023-08-04 10:00:00 2023-08-04 11:00:40 Outpatient R KORY CRUZ [facility] [id number] [facility] 2023-08-04 10:00:00 2023-08-04 11:00:40 Initial Visit Kory Cruz [facility] 1..114 350.1.13.10 4.2.7.2.686 [id number] [facility] 2023-07-29 03:10:00 2023-07-29 06:05:00 Outpatient X CANO-EVER S, ARIELA CANO-EVER S, ARIELA [facility] [id number] [facility] 2023-07-29 03:10:00 2023-07-29 06:05:00 Emergency Cano-Ever s, Ariela [facility] 1..114 350.1.13.10 4.2.7.2.686 [id number] 083 [id number] [facility] 2023-07-27 00:00:00 2023-07-27 00:00:00 Nurse Triage Nurse, Suyapa [facility] 1.114 350.1.13.10 4.2.7.2.686 [id number] [id number] [facility] 2023-06-21 00:00:00 2023-06-21 00:00:00 Krystal Ortega [facility] INSIDE SALES PERSON [facility] MATERNAL & CHILD [facility] 1.2.840.114 350.1.13.10 4.2.7.2.686 [id number] [facility] 2023-06-14 12:51:00 2023-06-14 15:30:00 Outpatient X ANTHONY KORY [facility] [id number] [facility] 2023-06-14 12:51:00 2023-06-14 15:30:00 Emergency Kory Cruz [facility] 1.2.840.114 350.1.13.10 4.2.7.2.686 [id number] [id number] [facility] 2023-06-14 00:00:00 2023-06-14 00:00:00 Nurse Triage Heidi Christianson [facility] 1.2.840.114 350.1.13.10 4.2.7.2.686 [id number] [id number] [facility] 2023-06-14 00:00:00 2023-06-14 00:00:00 Orders Only Doctor Unassigned, [employer] [facility] 1.2.840.114 350.1.13.10 4.2.7.2.686 [id number] [facility] 2023-06-03 00:00:00 2023-06-03 00:00:00 Telephone Huy Mendoza [facility] INSIDE SALES PERSON [facility] MATERNAL & CHILD [facility] 1.2.840.114 350.1.13.10 4.2.7.2.686 [id number] [facility] 2023-06-02 15:30:00 2023-06-02 15:30:00 Outpatient R HUY MENDOZA [facility] [id number] [facility] 2023-05-30 00:00:00 2023-05-30 00:00:00 Case Management Krystal Low [facility] INSIDE SALES PERSON [facility] MATERNAL & CHILD [facility] 1.2.840.114 350.1.13.10 4.2.7.2.686 [id number] [facility] 2023-05-28 14:00:00 2023-05-28 15:19:04 Outpatient P SHELLEY SANCHEZ [facility] [id number] [facility] 2023-05-28 14:00:00 2023-05-28 15:19:04 Perioperative Assistant Visit Ultrasound, [facility] Shelley Sanchez [facility] INSIDE SALES PERSON [facility] & CHILD [facility] 1.2.840.114 350.1.13.10 4.2.7.2.686 [id number] [facility] 2023-05-21 00:00:00 2023-05-21 00:00:00 Krystal Ortega [facility] INSIDE SALES PERSON [facility] & CHILD [facility] 1.2.840.114 350.1.13.10 4.2.7.2.686 [id number] [facility] 2023-05-21 00:00:00 2023-05-21 00:00:00 Krystal Coffey [facility] INSIDE SALES PERSON [facility] CHILD [facility] 1.2.840.114 350.1.13.10 4.2.7.2.686 [id number] 107 [id number] [facility] 2023-05-20 15:30:00 2023-05-20 15:30:00 Outpatient R HUY MENDOZA [facility] [id number] [facility] 2023-05-16 09:45:00 2023-05-16 09:45:00 Outpatient R KRYSTAL LOW [facility] [id number] [facility] 2023-05-03 17:42:00 2023-05-03 18:57:00 Outpatient X CANO-EVER S, ARIELA CANO-EVER S, ARIELA [facility] [id number] [facility] 2023-05-03 17:42:00 2023-05-03 18:57:00 Emergency Cano-Ever s, Ariela [facility] 1.2.840.114 350.1.13.10 4.2.7.2.686 [id number] [id number] [facility] 2023-04-30 10:45:00 2023-04-30 10:45:00 Outpatient R KRYSTAL LOW [facility] [id number] [facility] 2023-04-18 12:18:00 2023-04-18 16:05:00 Outpatient X CANO-EVER S, ARIELA CANO-EVER S, ARIELA [facility] [id number] [facility] 2023-04-18 12:18:00 2023-04-18 16:05:00 Emergency Cano-Ever s, Ariela [facility] 1.2.840.114 350.1.13.10 4.2.7.2.686 [id number] [id number] [facility] 2023-04-17 00:00:00 2023-04-17 00:00:00 Telephone Krystal Low [facility] INSIDE SALES PERSON [facility] & CHILD [facility] 1.2.840.114 350.1.13.10 4.2.7.2.686 [id number] 107 [id number] [facility] 2023-04-17 00:00:00 2023-04-17 00:00:00 Patient Secure Msg Krystal Low [facility] INSIDE SALES PERSON [facility] & CHILD [facility] 1.2.840.114 350.1.13.10 4.2.7.2.686 [id number] [facility] 2023-04-08 12:45:00 2023-04-08 12:45:00 Outpatient R KRYSTAL LOW [facility] [id number] [facility] 2023-04-07 00:00:00 2023-04-07 00:00:00 Case Management Krystal Low [facility] INSIDE SALES PERSON [facility] & CHILD [facility] 1.0.114 350.1.13.10 4.2.7.2.686 [id number] [facility] 2023-04-03 10:30:00 2023-04-03 10:30:00 Outpatient R KRYSTAL LOW [facility] [id number] [facility] 2023-04-03 00:00:00 2023-04-03 00:00:00 Refill Krystal Low [facility] INSIDE SALES PERSON [facility] & CHILD [facility] 1.0.114 350.1.13.10 4.2.7.2.686 [id number] [facility] 2023-04-02 08:45:00 2023-04-02 09:15:48 Outpatient R KRYSTAL LOW [facility] [id number] [facility] 2023-04-02 08:45:00 2023-04-02 09:15:48 Routine Visit Krystal Low [facility] INSIDE SALES PERSON [facility] & CHILD [facility] 1..114 350.1.13.10 4.2.7.2.686 [id number] 107 [id number] [facility] 2023-03-21 00:00:00 2023-03-21 00:00:00 Case Management Krystal Low [facility] INSIDE SALES PERSON [facility] & CHILD [facility] 1..114 350.1.13.10 4.2.7.2.686 [id number] 107 [id number] [facility] 2023-03-21 00:00:00 2023-03-21 00:00:00 Orders Only Doctor Unassigned, [employer] [facility] 1..114 350.1.13.10 4.2.7.2.686 [id number] [facility] 2023-03-19 00:00:00 2023-03-19 00:00:00 Telephone Krystal Low [facility] INSIDE SALES PERSON [facility] & CHILD [facility] 1.2.840.114 350.1.13.10 4.2.7.2.686 [id number] [facility] 2023-03-11 12:45:00 2023-03-11 13:26:33 Outpatient R KRYSTAL LOW [facility] [id number] [facility] 2023-03-11 12:45:00 2023-03-11 13:26:33 Routine Visit Krystal Low [facility] INSIDE SALES PERSON [facility] CHILD [facility] 1.840.114 350.1.13.10 4.2.7.2.686 [id number] 107 [id number] [facility] 2023-03-11 00:00:00 2023-03-11 00:00:00 Orders Only Doctor Unassigned, [employer] [facility] 1.840.114 350.1.13.10 4.2.7.2.686 [id number] [facility] 2023-02-18 00:00:00 2023-02-18 00:00:00 Telephone Krystal Low [facility] INSIDE SALES PERSON [facility] & CHILD [facility] 1.840.114 350.1.13.10 4.2.7.2.686 [id number] [facility] 2023-02-14 00:00:00 2023-02-14 00:00:00 Case Management Krystal Low [facility] INSIDE SALES PERSON [facility] & CHILD [facility] 1.2.840.114 350.1.13.10 4.2.7.2.686 [id number] 107 [id number] [facility] 2023-02-14 00:00:00 2023-02-14 00:00:00 Telephone Destinyl[employer] Krystal Sears [facility] INSIDE SALES PERSON [facility] & CHILD [facility] 1.2.840.114 350.1.13.10 4.2.7.2.686 [id number] 107 [id number] [facility] 2023-02-11 13:00:00 2023-02-11 14:23:32 Initial Visit Destinylobo Krystal Sears [facility] INSIDE SALES PERSON [facility] & CHILD [facility] 1.2.840.114 350.1.13.10 4.2.7.2.686 [id number] [facility] 2023-02-11 12:30:00 2023-02-11 13:21:27 Out[facility] [id number] [facility] 2023-02-11 00:00:00 2023-02-11 00:00:00 Orders Only Doctor Unassigned, [employer] [facility] 1.2.840.114 350.1.13.10 4.2.7.2.686 [id number] [facility] 2023-02-10 08:30:00 2023-02-10 08:30:00 Outpatient R HUY MENDOZA [facility] [id number] [facility] 2022-08-02 04:26:00 2022-08-02 11:34:00 Emergency LEEROY GALLO [facility] [id number] [facility] 2022-01-16 21:05:00 2022-01-17 00:11:00 Emergency X YVONNE SIDDIQI [facility] ERT [id number] [facility] 2022-01-16 21:05:00 2022-01-17 00:11:00 Emergency Yvonne Siddiqi [facility] 1.2.840.114 350.1.13.10 4.2.7.2.686 [id number] [facility] 2021-07-25 00:00:00 2021-07-25 00:00:00 Patient Secure Msg Doctor Unassigned, [employer] [facility] 1.2.840.114 350.1.13.10 4.2.7.2.686 [id number] [facility] 2021-04-19 13:15:00 2021-04-19 13:15:00 Outpatient HUY FRIAS [facility] [id number] [facility] 2021-02-06 00:00:00 2021-02-06 00:00:00 Case Management Simi Jenniferalee Rios 1.2.840.114 350.1.13.10 4.2.7.2.686 [id number] [facility] 2021-02-06 00:00:00 2021-02-06 00:00:00 Case Management Jennifer Belcher 1.2.840.114 350.1.13.10 4.2.7.2.686 [id number] 2020-12-12 00:00:00 2020-12-12 00:00:00 Patient Outreach Broderick Melton [facility] 1.2.840.114 350.1.13.10 4.2.7.2.686 [id number] [facility] 2020-12-12 00:00:00 2020-12-12 00:00:00 Patient Outreach Broderick Melton [facility] 1.2.840.114 350.1.13.10 4.2.7.2.686 [id number] 2020-02-28 15:00:00 2020-02-28 15:00:00 Outpatient JOSY ALANIS [facility] [id number] [facility] 2019-12-18 17:30:00 2019-12-18 17:30:00 Outpatient KRISSY MAYFIELD [facility] [id number] [facility] 2019-11-18 14:30:00 2019-11-18 14:30:00 Outpatient R JOSY CHAUDHARY [facility] [id number] [facility] 2019-05-27 14:41:30 2019-05-27 15:54:53 Routine Visit Josy Chaudhary [facility] Building 1.2.840.114 350.1.13.10 4.2.7.2.686 [id number] [facility] 2019-05-27 14:41:30 2019-05-27 15:54:53 [facility] 1.2840.114 350.1.13.10 4.2.7.2.686 [id number] 2019-05-17 17:15:00 2019-05-17 23:59:00 Hospital Encounter Josy Chaudhary [facility] 1.2.840.114 350.1.13.10 4.2.7.2.686 [id number] [facility] 2019-05-17 17:21:30 2019-05-17 17:36:30 Perioperative Assistant Visit 1, Adc Lab Kory Cruz [facility] 1.2.840.114 350.1.13.10 4.2.7.2.686 [id number] [facility] 2019-05-17 15:55:01 2019-05-17 16:56:25 Office Visit Josy Chaudhary [facility] Building 1.2.840.114 350.1.13.10 4.2.7.2.686 [id number] [facility] 2019-05-17 15:55:01 2019-05-17 16:56:25 Office Visit Josy Chaudhary [facility] 1.2.840.114 350.1.13.10 4.2.7.2.686 [id number] 134 [id number] 2019-05-17 00:00:00 2019-05-17 00:00:00 Orders Only Doctor Unassigned, [employer] [facility] 1.2.840.114 350.1.13.10 4.2.7.2.686 [id number] [facility] 2019-05-05 00:00:00 2019-05-05 00:00:00 Telephone Zaid [facility] 1.2.840.114 350.1.13.10 4.2.7.2.686 [id number] 134 [id number] [facility] 2019-05-04 15:07:01 2019-05-04 15:22:01 Perioperative Assistant Visit 1, Adc Lab Kory Cruz [facility] 1.2.840.114 350.1.13.10 4.2.7.2.686 [id number] [facility] 2019-05-04 12:48:00 2019-05-04 14:57:00 Hospital Encounter Kory Cruz [facility] 1.2.840.114 350.1.13.10 4.2.7.2.686 [id number] [id number] [facility] 2019-05-04 00:00:00 2019-05-04 00:00:00 Telephone Zaid [facility] 1.2.840.114 350.1.13.10 4.2.7.2.686 [id number] 134 [id number] [facility] 2019-05-04 00:00:00 2019-05-04 00:00:00 Orders Only Doctor Unassigned, [employer] [facility] 1.2.840.114 350.1.13.10 4.2.7.2.686 [id number] [facility] 2019-04-30 00:00:00 2019-04-30 00:00:00 Case Management Josy Chaudhary [facility] 1.2.840.114 350.1.13.10 4.2.7.2.686 [id number] [facility] 2019-04-29 15:40:17 2019-04-29 16:18:51 Routine Visit Kory Cruz [facility] 1.2.840.114 350.1.13.10 4.2.7.2.686 [id number] 134 [id number] [facility] Results Test Description Test Time Test Comments Results Result Co mments Source [facility] BRIDGER BRYSON - [id number] 09:53:48* Test Item Value Reference Range Interpretation Comme nts RPR (Qualitative) (test code = 10613-0) Nonreactive Nonreactive Lab Interpretation (test cod e = 36398-6) Normal [facility] Resources[facility] (D) IMMUNE [id number] 16:36:33* Test Item Value Reference Range Interpretation Comme nts RHIG CANDIDATE? (test code = 5188) No- see comment Patient is not a candidate for RhIg- Patient is Rh Positive.Performed at [facility] Laboratory Services - ADC Blood [address] [place] [address]Axzy Free: [id number] No. [id number] [facility] ResourcesHepatitis B Surface [id number] 12:56:12 * Test Item Value Reference Range Interpretation Comme nts HBsAg Semi-Quantitative (fredy t code = 5195-3) 0.10 Negative [facility] 1/2 Ag-Ab with [id number] 09:08:51* Test Item Value Reference Range Interpretation Comme nts HIV Semi-quantitative (test code = 63168-2) 0.18 Negative TIERRA (test code = TIERRA) Non-reactive for HIV-1 antigen and HIV-1/HIV-2 antibodies. ?No laboratory evidence of HIV infection. ?Repeat in 2-4 weeks if acute HIV infection is suspected. [facility] Resources[facility] Neuraxial [id number] 09:00:00 Xenia Angel MD ? ? 09/25/2023 [...] air and catheter ?Guidance with: landmark technique}Epidural/Spinal [place] and/or Catheter: ?Epidural/Spinal Kit: BBun ?Needle Type: Tuohy ?Needle Gauge: 17 G [...] mastisol then tegaderm and tape. No apparent complications.[facility] ResourcesType and Screen - ONCE [id number] 08:11:00* Test Item Value Reference Range Interpretation Comme nts ABO & RH (test code = 20) O Positive IAT (test code = 1185) Negative [facility]PO[facility] Urinalysis w/o Specific [id number] 22:26:00* Test Item Value Reference Range Interpretation [...] = 3257) n/a Negative - Negati ve [facility] ResourcesComp. Metabolic Panel (68934)2023-09-16 10:09:50* Test Item Value Reference Range Interpretation Comme nts NA (test code = 9800096529) 135 mmol/L 135-145 K (test code = 0491210576) 3.6 mmol/L 3.5-5.0 CL (test code = 9164354432) 105 mmol/L 98-108 CO2 TOTAL (test code = 1767055245) 25 mmol/L 23-31 AGAP (test code = 0759822158) 5 2-16 BUN (test code = 0698388813) 4 mg/dL 7-23 L GLUCOSE (test code = 1374466891) 88 mg/dL 70-110 CREATININE (test code = 7412940817) 0.49 mg/dL 0.50-1.04 L TOTAL BILI (test code = 5719937521) 1.1 mg/dL 0.1-1.1 CALCIUM (test code = 8819179222) 8.6 mg/dL 8.6-10.6 T PROTEIN (test code = 1996953031) 6.7 g/dL 6.3-8.2 ALBUMIN (test code = 6125081970) 3.3 g/dL 3.5-5.0 L ALK PHOS (test code = 3256412618) 131 U/L 34-122 H ALTv (test code = 1742-6) 17 U/L 5-35 AST(SGOT) (test code = 7835880110) 25 U/L 13-40 eGFR (test code = 04769-6) 135.2 mL/min/1.73m2 CKD-EPI eGFR (2020). Assuming creatinine has been stable day-to-day for at least three months, the eGFR indicates Category G1 (>= 90 mL/min/1.73 m2) Lab Interpretation (test code = 55446-3) Abnormal [facility] with [id number] 09:36:47* Test Item Value Reference Range Interpretation Comme nts WBC (test code = 6690-2) 6.44 See_Comment [Automated [employer]] The system which generated this result transmitted reference range: 4.30 - 11.10 10*3/?L. The reference range was not used to interpret this result as normal/abnormal. RBC (test code = 789-8) 3.72 See_Comment L [Automated Deema ge] The system which generated this result [...] g/dL 31.6-35.1 L RDW-SD (test code = 09847-4) 47.0 fL 39.0-49.9 RDW-CV (test code = 788-0) 17.6 % 12.0-15.5 H PLT (test code = 777-3) 184 See_Comment [Automated messa ge] The system which generated this result transmitted reference range: 166 - 358 10*3/?L. The reference range was not used to interpret this result as normal/abnormal. MPV (test code = 25198-1) 10.1 fL 9.5-12.9 NRBC/100 WBC (test code = 7886547088) 0.0 See_Comment [Automated CommonKey ssage] The system which generated this result transmitted reference range: 0.0 - 10.0 /100 WBCs. The reference range was not used to interpret this result as normal/abnormal. NRBC x10^3 (test code = 8345757771) See_Comment [Automated Deema ge] The system which generated this result transmitted reference range: 10*3/?L. The reference range was not used to interpret this result as normal/abnormal. GRAN MAT (NEUT) % (test code = 770-8) 66.7 % IMM GRAN % (test code = 6477745276) 0.80 % LYMPH % (test code = 736-9) 24.1 % MONO % (test code = 5905-5) 6.5 % EOS % (test code = 713-8) 1.6 % BASO % (test code = 706-2) 0.3 % GRAN MAT x10^3(ANC) (test code = 2571607488) 4.30 10*3/uL 1.88-7.09 IMM GRAN x10^3 (test code = 6711546897) 0.05 10*3/uL 0.00-0.06 LYMPH x10^3 (test code = 731-0) 1.55 10*3/uL 1.32-3.29 MONO x10^3 (test code = 742-7) 0.42 10*3/uL 0.33-0.92 EOS x10^3 (test code = 711-2) 0.10 10*3/uL 0.03-0.39 BASO x10^3 (test code = 704-7) 0.01-0.07 Lab Interpretation (test code = 33552-0) Abnormal [facility] Urinalysis w/o Specific [id number] 22:18:00* Test Item Value Reference Range Interpretation [...] = 3257) n/a Negative - Negati ve [facility] W/O SPECIFIC [id number] 17:06:00* Test Item Value Reference Range Interpretation [...] = 3257) n/a Negative - Negati ve [facility] ResourcesVZV ANTIBODY [id number] 15:22:41* Test Item Value Reference Range Interpretation Comme [facility] VZV IgG antibody (test code = 10943-1) Negative Negative TIERRA (test code = TIERRA) Positive - Indicat es the patient was exposed to VZV through infection or vaccination.Negative - Indicates the patient could be susceptible to VZV infection.Equivocal - A second specimen should be sent for testing. [facility] ResourcesRUBELLA SCREEN [id number] 15:22:41* Test Item Value Reference Range Interpretation Comme [facility] Rubella screen IgG (test code = 6270015686) Positive Negative TIERRA (test code = TIERRA) Positive - Indicat es the patient was exposed to Rubella through infection or vaccination.Negative - Indicates the patient could be susceptible to Rubella infection.Equivocal - A second specimen should be sent. [facility] ResourcesSYPHILIS [id number] 15:21:40* Test Item Value Reference Range Interpretation Comme [facility] Syphilis IgG/IgM (test code = 89096-0) Non-reactive Non-reactive TIERRA (test code = TIERRA) Non-reactive - No serologic evidence of T. pallidum infection. Cannot exclude incubating or early syphilis. Submit a second specimen in 2-4 weeks if syphilis is clinically suspected. Equivocal - Further testing to follow. Reactive - Further testing to follow. Lab Interpretation (test code = 02415-6) Normal [facility]PO[facility] GLUCOSE (AUTOMATED)2023-08-22 01:48:28* Test Item Value Reference Range Interpretation Comme [facility] POCT GLU (test code = 6802512896) 133 mg/dL 70-110 H Lab Interpretation (test cod e = 21902-7) Abnormal [facility] ResourcesTransthoracic echo (TTE)2023-08-21 20:30:27* Test Item Value Reference Range Interpretation Comme [facility] Height (test code = 7315525803) 65 in Weight (test code = 7744285396) 219 lbs Systolic BP (test code = 3595967960) 106 mmHg Diastolic BP (test code = 2920228935) 60 mmHg Heart Rate (test code = 4168256284) 90 bpm LVOT stroke volume (test code = 2877420145) 55.30 cm3 EF(Teich) (test code = 3176741490) 74.90 % LVIDD (test code = 6544526691) 5.20 cm LVIDS (test code = 5395957288) 2.90 cm Left Ventricular End Systolic Volume by Teichholz Method (test code = 7678560) 32.2 mL Left Ventricular End Diastolic Volume by Teichholz Method (test code = 7659311) 128.3 mL IVS (test code = 1364396618) 0.66 cm LVPWD (test code = 4312676707) 1.10 cm LVOT diameter (test code = 1892639301) 1.86 cm LVOT area (test code = 4619874825) 2.70 cm2 FS (test code = 2105100316) 44 % MV Peak E Lakshmi (test code = 3224956204) 97.3 cm/s MV Peak A Lakshmi (test code = 4938505838) 80.6 cm/s E/A ratio (test code = 8696692008) 1.21 ratio E wave decelartion time (test code = 5809518851) 0.19 s MV E/e' septal (test code = 2304922474) 11.6 cm/s LA Volume Index (BP) (test code = 3849045158) 37.1 mL/m2 LA volume (BP) (test code = 3500342357) 76.3 mL LVOT peak lakshmi (test code = 0922150840) 108.4 cm/s LVOT mn grad (test code = 4449525781) 2.5 mmHg BSA (test code = 3005145085) 2.06 m2 LA size (test code = 5618404197) 4.0 cm LAV(MOD-sp2) (test code = 1931148062) 54.20 mL LAV(MOD-sp4) (test code = 5032996528) 82.70 mL Tapse (test code = 8449477649) 2.35 cm AV LVOT peak gradient (test code = 7900869415) 4.7 mmHg LVOT peak VTI (test code = 8877199659) 20.3 cm LV V1 mean (test code = 3605404168) 74.60 cm/s MV Prop V (test code = 3978391948) 70.10 cm/s Ao root diam (test code = 9844440322) 3.60 cm Aortic root (test code = 5050707238) 3.6 cm Ao root annulus (test code = 4454980497) 3.6 cm PW (test code = 1603091715) 1.10 cm 0.6-1.1 EF - 2D (test code = 60867112) 74.90 % Interventricular Septum Diastolic Thickness by 2D (test code = 3385992) 0.66 cm Aortic valve mean velocity (test code = 7590372904) 123.5 cm/s Ao peak lakshmi (test code = 2569756655) 177.8 cm/s Ao VTI (test code = 2434566813) 34.6 cm AV area by cont VTI (test code = 4874180542) 1.6 cm2 AV area peak lakshmi (test code = 4827392137) 1.7 cm2 Ao max PG (test code = 7741704511) 12.60 mm[Hg] AV peak gradient (test code = 4389047129) 12.6 mmHg AV valve area (test code = 0229280563) 1.60 cm2 AV mean gradient (test code = 2701079989) 6.5 mmHg MV mean gradient (test code = 3942792499) 1.45 mmHg MV peak gradient (test code = 0727102842) 3.0 mmHg MV pk lakshmi (test code = 5742027266) 86.1 cm/s MV valve area by continuity eq (test code = 6880282668) 2.70 cm2 MV VTI (test code = 5457871232) 20.5 cm MV V2 mean (test code = 1622575849) 56.30 cm/s Radiology Study observation (narrative) (test code = 26435-2) TIERRA (test code = TIERRA) ?Left?Ventricle: Left ventricle size is normal. Increased wall thickness. There is concentric remodeling. Normal wall motion. Hyperdynamic systolic function with a visually estimated EF of 65 - 70%. Normal diastolic function. ?Right?Ventricle: Right ventricle size is normal. Normal systolic function. TAPSE is 2.35 cm. Roscoe Cuellar, MUSCOGEEardiovascular Medicine FellowJohnson County Hospital VentricleLeft ventricle size is normal. [...] apical, parasternal and subcostal views were obtained. [facility] ResourcesTHYROID STIMULATING [id number] 17:48:00 * Test Item Value Reference Range Interpretation Comme nts TSH (test code = 8361454967) 0.51 See_Comment [Automated messa ge] The system which generated this result transmitted reference range: 0.45 - 4.70 mIU/L. The reference range was not used to interpret this result as normal/abnormal. Lab Interpretation (test code = 13882-1) Normal [facility] METABOLIC PANEL (NA, K, CL, CO2, GLUCOSE, BUN, CREATININE, CA)2023-08-21 17:14:33* Test Item Value Reference Range Interpretation Comme [facility] NA (test code = 5461683537) 132 mmol/L 135-145 L K (test code = 7122010056) 4.0 mmol/L 3.5-5.0 CL (test code = 2496456231) 106 mmol/L 98-108 CO2 TOTAL (test code = 6001067254) 17 mmol/L 23-31 L AGAP (test code = 7196638034) 9 2-16 BUN (test code = 4939235563) 5 mg/dL 7-23 L GLUCOSE (test code = 4679586333) 75 mg/dL 70-110 CREATININE (test code = 6598674543) 0.44 mg/dL 0.50-1.04 L CALCIUM (test code = 9797731685) 8.4 mg/dL 8.6-10.6 L eGFR (test code = 79135-4) 138.7 mL/min/1.73m2 CKD-EPI eGFR (2020). Assuming creatinine has been stable day-to-day for at least three months, the eGFR indicates Category G1 (>= 90 mL/min/1.73 m2) Lab Interpretation (test code = 15215-9) Abnormal [facility] ResourcesHIV 1/2 AG-AB WITH [id number] 15:05:53* Test Item Value Reference Range Interpretation Comme [facility] HIV Semi-quantitative (test code = 11748-5) 0.11 Negative TIERRA (test code = TIERRA) Non-reactive for HIV-1 antigen and HIV-1/HIV-2 antibodies. ?No laboratory evidence of HIV infection. ?Repeat in 2-4 weeks if acute HIV infection is suspected. [facility] ResourcesHEPATITIS B SURFACE [id number] 15:01:33 * Test Item Value Reference Range Interpretation Comme nts HBsAg Semi-Quantitative (fredy t code = 5195-3) 0.07 Negative [facility] ResourcesGLYCOSYLATED HEMOGLOBIN (A1C)2023-08-21 14:26:03* Test Item Value Reference Range Interpretation Comme [facility] HGB A1C (test code = 4548-4) 5.2 % 4.0-5.7 TIERRA (test code = TIERRA) Reference RangesNormal: <5.7%Prediabetes: 5.7 - 6.4%Diabetes: > 6.5% Lab Interpretation (test code = 73172-5) Normal [facility] ResourcesType and Screen - ONCE [id number] 13:34:00* Test Item Value Reference Range Interpretation Comme [facility] ABO & RH (test code = 20) O POSITIVE IAT (test code = 1185) Negative [facility] ResourcesProthrombin Time / [id number] 02:05:48* Test Item Value Reference Range Interpretation Comme [facility] PROTIME PATIENT (test code = 5964-2) [...] the indications. Lab Interpretation (test code = 04727-4) Normal [facility] ResourcesaPTT2023-11-30 02:05:48* Test Item Value Reference Range Interpretation Comme [facility] APTT Patient (test code = 3173-2) 27 See_Comment [Automated message] The system which generated this result transmitted reference range: 23 - 38 Seconds. The reference range was not used to interpret this result as normal/abnormal. TIERRA (test code = TIERRA) The [facility] patient population mean normal value for aPTT is 30 seconds. Lab Interpretation (test code = 34824-4) Normal [facility] ResourcesCBC WITH [id number] 01:28:43* Test Item Value Reference Range Interpretation [...] g/dL 31.6-35.1 L RDW-SD (test code = 95321-1) 45.6 fL 39.0-49.9 RDW-CV (test code = 788-0) 17.0 % 12.0-15.5 H PLT (test code = 777-3) 228 See_Comment [Automated messa ge] The system which generated this result transmitted reference range: 166 - 358 10*3/?L. The reference range was not used to interpret this result as normal/abnormal. MPV (test code = 18931-7) 10.4 fL 9.5-12.9 NRBC/100 WBC (test code = 4012535365) 0.2 See_Comment [Automated CommonKey ssage] The system which generated this result transmitted reference range: 0.0 - 10.0 /100 WBCs. The reference range was not used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
[2024-06-02 02:35] LABS: Specific Gravity 1.009 (1.005-1.030)
--- NOTE | 2024-06-02 02:42 | EDPHYS ---
Physician Documentation [facility] Name: Arina Valdes Age: 23 yrs Sex: Female : 2000 Arrival Date: 06/02/2024 Time: 01:00 Bed 5 Private MD: ED Physician Nestor Dsouza HPI: 06/02 01:56 This 23 yrs old Female presents to ER via Ambulatory with complaints of Low sp4 Back Pain. 02:37 23-year-old female presents with complaint of acute lower back pain. sp4 Historical: - Allergies: 01:33 No Known Allergies; jb4 - PMHx: 01:33 Anxiety; depressive disorder; Heart Murmur; pre eclampsia; UTI; jb4 - PSHx: :33 None; jb4 - Immunization history:: Adult Immunizations up to date. - Infectious Disease History:: Denies. - Social history:: Smoking status: Reported history of juuling and/or vaping. - Family history:: not pertinent. ROS: 02:37 Constitutional: Negative for fever, chills, and weight loss, positive today for back sp4 pain 02:37 All other systems are negative, Exam: 02:37 Constitutional: This is a well developed, well nourished patient who is awake, alert, sp4 and in no acute distress. Head/Face: Normocephalic, atraumatic. Eyes: Pupils equal round and reactive to light, extra-ocular motions intact. Lids and lashes normal. Conjunctiva and sclera are not injected. Cornea within normal limits. Periorbital areas with no swelling, redness, or edema. ENT: Nares patent. No nasal discharge, no septal abnormalities noted. Tympanic membranes are normal and external auditory canals are clear. Oropharynx with no redness, swelling, or masses, exudates, or evidence of obstruction, uvula midline. Mucous membranes moist. Neck: Trachea midline, no thyromegaly or masses palpated, and no cervical lymphadenopathy. Supple, full range of motion without nuchal rigidity, or vertebral point tenderness. Chest/axilla: Normal chest wall appearance and motion. Nontender with no deformity. No lesions are appreciated. Cardiovascular: Regular rate and rhythm with a normal S1 and S2. No gallops, murmurs, or rubs. Normal PMI, no JVD. No pulse deficits. Respiratory: Lungs have equal breath sounds bilaterally, clear to auscultation and percussion. No rales, rhonchi or wheezes noted. No increased work of breathing, no retractions or nasal flaring. Abdomen/GI: Soft, with normal bowel sounds. No distension or tympany. No guarding or rebound. No evidence of tenderness throughout. Back: No spinal tenderness. No costovertebral tenderness. Skin: Warm, dry with normal turgor. Normal color with no rashes, no lesions, and no evidence of cellulitis. MS/ Extremity: Pulses equal, no cyanosis. Neurovascular intact. Full, normal range of motion. Neuro: Awake and alert, GCS 15, oriented to person, place, time, and situation. Cranial nerves II-XII grossly intact. Motor strength 5/5 in all extremities. Sensory grossly intact. Psych: Awake, alert, with orientation to person, place and time. Behavior, mood, and affect are within normal limits Vital Signs: 01:30 BP 111 / 57; Pulse 72; Resp 16; Temp 98.6(O); Pulse Ox 100% on R/A; Weight 102.06 kg; jb4 Height 5 ft. 5 in. (R); Pain 10/10; 01:35 BP 106 / 58; Pulse 86; Resp 17; Temp 98.6; Pulse Ox 100% ; Pain 10/10; bm8 01:30 Body Mass Index 37.44 (102.06 kg, 165.1 cm) jb4 01:30 Pain Scale: Adult jb4 01:35 Pain Scale: Adult bm8 Giovanni Coma Score: 01:35 Eye Response: spontaneous(4). Motor Response: obeys commands(6). Verbal Response: bm8 oriented(5). Total: 15. 02:37 Eye Response: spontaneous(4). Motor Response: obeys commands(6). Verbal Response: sp4 oriented(5). Total: 15. MDM: 01:57 Patient medically screened. sp4 02:37 Differential diagnosis: arthritis, strain, fracture, sciatica, contusion, Herniated sp4 disc. Data reviewed: vital signs, nurses notes, lab test result(s), UPT: negative. ED course: Patient was offered some medications but he she declined and decided to go home. Patient will be discharged via informed discharge. 06/02 01:57 Order name: Test, Urine; Complete Time: 02:37 sp4 Administered Medications: No medications were administered Disposition Summary: 06/02/24 02:42 Discharge Ordered Notes: Location: Home sp4 Problem: new sp4 Symptoms: have improved sp4 Condition: Stable sp4 Diagnosis - Low back pain sp4 Followup: sp4 - With: Private Physician - When: As needed - Reason: Recheck today's complaints Discharge Instructions: - Discharge Summary Sheet sp4 - Acute Back Pain, Adult sp4 Signatures: Dispatcher [employer] Sean Petit RN RN jb4 Nestor Dsouza MD MD sp4 Corrections: (The following items were deleted from the chart) 01:57 01:57 Test, Urine+[id number] ordered. ULISES MONTGOMERY
--- NOTE | 2024-06-02 02:42 | ER ---
Nurse's Notes [facility] Name: Arina Valdes Age: 23 yrs Sex: Female : 2000 Arrival Date: 06/02/2024 Time: 01:00 Bed 5 Private MD: Diagnosis: Low back pain Presentation: 06/02 01:30 Chief complaint: Patient states: I am having mid to lower back pain where I had my jb4 epidural. It is to the point I am having trouble walking, getting dressed, and sleeping. Coronavirus screen: At this time, the client does not indicate any symptoms associated with coronavirus-19. Ebola Screen: No symptoms or risks identified at this time. Initial Sepsis Screen: Does the patient meet any 2 criteria? No. Patient's initial sepsis screen is negative. Does the patient have a suspected source of infection? No. Patient's initial sepsis screen is negative. Risk Assessment: Do you want to hurt yourself or someone else? Patient reports no desire to harm self or others. Onset of symptoms was June 02, 2024. Transition of care: patient was not received from another setting of care. 01:30 Method Of Arrival: Ambulatory jb4 01:30 Acuity: PEY[place] 4 jb4 Historical: - Allergies: 01:33 No Known Allergies; jb4 - PMHx: 01:33 Anxiety; depressive disorder; Heart Murmur; pre eclampsia; UTI; jb4 - PSHx: 01:33 None; jb4 - Immunization history:: Adult Immunizations up to date. - Infectious Disease History:: Denies. - Social history:: Smoking status: Reported history of juuling and/or vaping. - Family history:: not pertinent. Screenin:35 [facility] ED Fall Risk Assessment (Adult) History of falling in the last 3 months, bm8 including since admission No falls in past 3 months (0 pts) Confusion or Disorientation No (0 pts) Intoxicated or Sedated No (0 pts) Impaired Gait No (0 pts) Mobility Assist Device Used No (0 pt) Altered Elimination No (0 pt) Score/Fall Risk Level 0 - 2 = Low Risk Oriented to surroundings, Maintained a safe environment, Educated pt \T\ family on fall prevention, incl call for assistance when getting out of bed, Assessed \T\ reinforced patient's understanding of fall precautions, Hourly rounding (assess needs \T\ fall precautionary measures) done, Used ambulatory aids as needed (educated on \T\ assisted with), Used gait belt as appropriate. Abuse screen: Denies threats or abuse. Nutritional screening: No deficits noted. Tuberculosis screening: No symptoms or risk factors identified. Assessment: 01:35 General: Appears in no apparent distress. comfortable, Behavior is calm, cooperative, bm8 appropriate for age. Pain: Complains of pain in lumbar area Pain does not radiate. Pain currently is 10 out of 10 on a pain scale. Quality of pain is described as aching, crampy. Neuro: Level of Consciousness is awake, alert, obeys commands, Oriented to person, place, time, situation, Appropriate for age. Cardiovascular: Capillary refill < 3 seconds in bilateral fingers toes Patient's skin is warm and dry. Respiratory: Airway is patent Respiratory effort is even, unlabored, Respiratory pattern is regular, symmetrical, Breath sounds are clear bilaterally. GI: No deficits noted. : No deficits noted. EENT: No deficits noted. Derm: No deficits noted. Musculoskeletal: tenderness lower back Reports pain in lumbar area. Vital Signs: 01:30 BP 111 / 57; Pulse 72; Resp 16; Temp 98.6(O); Pulse Ox 100% on R/A; Weight 102.06 kg; jb4 Height 5 ft. 5 in. (R); Pain 10/10; 01:35 BP 106 / 58; Pulse 86; Resp 17; Temp 98.6; Pulse Ox 100% ; Pain 10/10; bm8 01:30 Body Mass Index 37.44 (102.06 kg, 165.1 cm) jb4 01:30 Pain Scale: Adult jb4 01:35 Pain Scale: Adult bm8 Jansen Coma Score: 01:35 Eye Response: spontaneous(4). Motor Response: obeys commands(6). Verbal Response: bm8 oriented(5). Total: 15. 02:37 Eye Response: spontaneous(4). Motor Response: obeys commands(6). Verbal Response: sp4 oriented(5). Total: 15. ED Course: 01:14 Patient arrived in ED. jj6 01:33 Triage completed. jb4 01:33 Arm band placed on right wrist. jb4 01:35 Lazaro Cordova, RN is Primary Nurse. bm8 01:35 Patient has correct armband on for positive identification. Bed in low position. Call 8 light in reach. Side rails up X 1. Adult w/ patient. Client placed on continuous cardiac and pulse oximetry monitoring. NIBP monitoring applied. Pulse ox on. NIBP on. Door closed. Noise minimized. Warm blanket given. Pillow given. Verbal reassurance given. Head of bed. 01:35 No provider procedures requiring assistance completed. bm8 01:56 Nestor Dsozua MD is Attending Physician. sp4 02:16 Test, Urine Sent. cp4 02:16 Urine collected: clean catch specimen, clear. cp4 Administered Medications: No medications were administered Medication: 01:35 VIS not applicable for this client. bm8 Outcome: 02:32 AMA AMA form signed cp4 02:32 Condition: stable 02:32 Discharge instructions given to Patient left prior to signing discharge instructions. 02:42 Discharge ordered by . sp4 02:44 Patient left the ED. cp4 Signatures: Sean Floyd, RN RN jb4 Oriana Nagel6 Nestor Dsouza MD MD sp4 Romina Black cp4 Lazaro Cordova, RN RN 8
[2024-06-02 02:50] VITALS: TEMP 98.6; O2SAT 100
[2024-06-02 02:52] VITALS: BP 106/58
== END 2024-06-02 02:44 | disposition home or self-care (01) ==
LOC: ER 01:00
DX: M54.50 Low back pain, unspecified (principal)
CPT/HCPCS: 81025; 99284

== ENCOUNTER 2024-06-02 05:08 | Emergency (ER) | payer OTHER ==
--- OUTSIDE RECORDS SUMMARY | 2024-06-02 05:24 | XMS REPORT | Continuity of Care Document ---
Author Name Unknown Address [address] [facility] [place] [address] [facility] thconnect Address [address] [facility] [place] [address] Care Team Providers Care Sulfur Chloride Operator Name Role Phone Yolanda Champion Primary Care Physician [phone] DORIAN LOZOYA Attending Clinician Unavailable DORIAN LOZOYA Attending Clinician Unavailable Netta KENNEDY, Olamide Attending Clinician Doctor Unassigned, [place] Attending Clinician U Kory Yo MD Attending Clinician KORY CRUZ Attending Clinician Unavailable Stanley KENNEDY, Xenia Mac Attending Clinician + Agnes Pedraza MD Attending Clinician ARIELA WILKINSON Attending Clinician ARIELA Dunn Attending Clinician Jose Antonio candelario 2, [facility] Attending Clinician Unavailable MARY AVINA Attending Clinician Unavailable Mary Avina MD Attending Clinician [phone] ELOY CHAVEZ Attending Clinician Unavaila Nacho Dior DO Attending Clinician +[phone] Sheldon KENNEDY, Kristal Phelps Attending Clinician + Scott KENNEDY, Eloy Ramires Attending Clinician + [phone], [facility] Us Room Attending Clinician Unavailcatherine Melton MD, Sunita Segura Attending Clinician [phone] Nurse, [facility] Attending Clinician Amanda rustam RODRIGUEZM, Krystal Sears Attending Clinician [phone] Sammy RN, Heidi T Attending Clinician Unavaila kam Akinsirebecca WHCNPHuy Attending Clinician + HUY MENDOZA Attending Clinician Unavail able SHELLEY OCASIO Attending Clinician Unav ailbarb [facility], [facility] Attending Clinician Unavaila kam Daniels MD, Franco Attending Clinician + KRYSTAL LOW Attending Clinician UnavailLEEROY Carter Attending Clinician Unavailable YVONNE SIDDIQI Attending Clinician Unavailable Yvonne Rodriguez Attending Clinician [phone] Simi [facility] Attending Clinician Unadereck ilBroderick Ballesteros DO Attending Clinician [phone] JOSY CHAUDHARY Attending Clinician Unavailable KRISSY GREEN Attending Clinician Unavailable Josy Chaudhary PA-C Attending Clinician [phone], [facility] Attending Clinician Unavailable ARIELA WILKINSON Admitting Clinician KORY Weller Admitting Clinician Unavailable Anthony KENNEDY, Kory Vasquez Admitting Clinician [phone] MARY AVINA Admitting Clinician Unavailable Mary Avina MD Admitting Clinician ELOY CHAVEZ Admitting Clinician UnavailEloy Lewis MD Admitting Clinician Payers Payer Name Policy Type Policy Number Effective Date Expirati on Date Source [facility] [id number] 2023 00:00:00 MEDICAID PENDING PENDING 2023 00:00:00 2023 00:00:00 [place]ICA[place] [id number] 2023 00:00:00 2023 00:00:00 [facility] [id number] 2018 00:00:00 Problems Condition Name Condition Details Condition Category Status Onset Date Resolution Date Last Treatment Date Treating Clinician Comments Source Normal labor Normal labor Disease Active 09-25 00:00: 00 [facility] Liveborn infant, of [place] , born in hospital by vaginal delivery Liveborn infant, of [place] , born in hospital by vaginal delivery Disease Active 09-25 00:00: 00 [facility] 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 Disease Active 2022-09 00:00: 00 [facility] 37 weeks gestation of 37 weeks gestation of Disease Active 2022-09 00:00: 00 [facility] Drug use complicati ng in third trimester Drug use complicati ng in third trimester Disease Active 2022-09 00:00: 00 [facility] 38 weeks gestation of 38 weeks gestation of Disease Active 2022-09 00:00: 00 [facility] Fall (on) (from) unspecifie d stairs and steps, sequela Fall (on) (from) unspecifie d stairs and steps, sequela Disease Active 2022-09 00:00: 00 [facility] Injury Injury Disease Active 2022-09 00:00: 00 [facility] Fall Fall Disease Active 2022-09 00:00: 00 [facility] High-risk in third trimester High-risk in third trimester Disease Active 2022-09 00:00: 00 [facility] Limited care in third trimester Limited care in third trimester Disease Active 2022-09 00:00: 00 [facility] Cramping affecting , antepartum Cramping affecting , antepartum Disease Active 2022-09 00:00: 00 [facility] 30 weeks gestation of 30 weeks gestation of Disease Active 2022-09 00:00: 00 [facility] 31 weeks gestation of 31 weeks gestation of Disease Active 2022-09 00:00: 00 [facility] Maternal varicella, non-immune Maternal varicella, non-immune Disease Active 02-12 00:00: 00 [facility] Obesity affecting Obesity affecting Disease Active 02-11 00:00: 00 [facility] History of heart murmur in childhood History of heart murmur in childhood Disease Active 02-11 00:00: 00 Overview: Formattin g of this note might be different from the original. Age 12EKG NSR with sinus arrhythmi a. Normal EKG compared to 7. [facility] Family history of autism Family history of autism Disease Active 02-11 00:00: 00 Overview: Formattin g of this note might be different from the original. Patient sister and daughter [facility] Anemia, antepartum , third trimester Anemia, antepartum , third trimester Disease Active 2018-09 00:00: 00 [facility] History of anxiety and depression History of anxiety and depression Disease Active 01-04 00:00: 00 [facility] Anxiety during Anxiety during Disease Active 01-04 00:00: 00 [facility] uterine contractio ns, antepartum , third trimester uterine contractio ns, antepartum , third trimester Disease Resolve d 2022-09 00:00: 00 2023-09-25 00:00:00 2023-09-25 01:41:06 [facility] 33 weeks gestation of 33 weeks gestation of Disease Resolve d 2022-09 00:00: 00 2023-08-28 00:00:00 2023-08-28 12:38:51 [facility] Trichomona l vaginitis during Trichomona l vaginitis during Disease Resolve d 2022-0 5-26 00:00: 00 2023-08-04 00:00:00 2023-08-04 10:21:06 [facility] Nausea and vomiting during Nausea and vomiting during Disease Resolve d 0 - 00:00: 00 2023-03-13 00:00:00 2023-03-13 21:27:28 [facility] Nexplanon insertion Nexplanon insertion Disease Resolve d 2018-09 216 00:00: 00 2023-02-11 00:00:00 2023-02-11 13:15:49 [facility] Nexplanon in place Nexplanon in place Disease Resolve d 2018-09 2-16 00:00: 00 2023-02-11 00:00:00 2023-02-11 13:15:51 [facility] Encounter for female control Encounter for female control Disease Resolve d 2018-09 2-16 00:00: 00 2023-02-11 00:00:00 2023-02-11 13:15:53 [facility] Anemia, antepartum , third trimester Anemia, antepartum , third trimester Disease Resolve d 2018-0912 00:00: 00 2023-02-11 00:00:00 2023-02-11 13:15:55 [facility] Obesity (BMI 30-39.9) Obesity (BMI 30-39.9) Disease Resolve d 4-15 00:00: 00 2023-02-11 00:00:00 2023-02-11 13:15:59 [facility] History of depression History of depression Disease Resolve d 4-15 00:00: 00 2023-02-11 00:00:00 2023-02-11 20:41:59 [facility] 39 weeks gestation of 39 weeks gestation of Disease Resolve d 2018-09 00:00: 00 2019-09-06 00:00:00 2019-09-06 12:08:27 [facility] Allergies, Adverse Reactions, Alerts Allergy Name Allergy Type Status Severity Reaction(s) Onset Date Inactive Date Treating Clinician Comments Source NO KNOWN ALLERGIE S Drug Class Active [facility] Social History Social Habit Start Date Stop Date Quantity Comments Source ASSERTION 2023-01-10 00:00:00 [facility] History of tobacco use Passive smoker [facility] Alcoholic beverage intake 2024-04-19 00:00:00 2024-04-19 00:00:00 Current non-drinker of alcohol (finding) [facility] Alcohol intake 2023-10-10 00:00:00 2023-10-10 00:00:00 Current non-drinker of alcohol (finding) [facility] Tobacco Comment 2023-02-11 00:00:00 2023-02-11 00:00:00 fiance smokes outside [facility] Tobacco use and exposure 2023-02-11 00:00:00 2023-02-11 00:00:00 Smokeless tobacco non-user [facility] History of Social function 2023-02-11 00:00:00 2023-02-11 00:00:00 [facility] Exposure to SARS-CoV-2 (event) 2022-01-06 00:00:00 2022-01-16 20:33:00 Unable to assess [facility] Sex assigned at 2000 00:00:00 2000 00:00:00 [facility] Smoking Status Start Date Stop Date Source Never smoked tobacco [facility] Medications Ordered Medication Name Filled Medication Name Start Date Stop Date Current Medication? Ordering Clinician Indication Dosage Frequency Signature (SIG) Comments Components Source acetaminoph en (TYLENOL) tablet 975 mg 04-19 20:15: 00 04-19 21:01 :00 No 975mg 975 mg, Oral, ONCE NOW, 1 dose, On Fri04/19/24 at 1515, ABHAY [facility] ketorolac (TORADOL) injection 30 mg 04-19 20:00: 00 04-19 21:01 :00 No 30mg 30 mg, Slow IV Push, ONCE NOW, 1 dose, On Fri04/19/24 at 1500, [facility] gabapentin (NEURONTIN) capsule 300 mg 04-19 19:15: 00 04-19 21:01 :00 No 300mg 300 mg, Oral, ONCE, 1 dose, On Fri04/19/24 at 1415, [facility] dexamethaso ne sod phos PF injection 10 mg 04-19 19:15: 00 04-19 21:01 :00 No 10mg 10 mg, Slow IV Push, ONCE, 1 dose, On Fri04/19/24 at 1415, 1 mL [facility] meloxicam 15 mg tablet 03-22 00:00: [...] 50 mg tablet 10-17 00:00: 00 Yes [id number] 50mg Take 1 tablet by mouth in the morning. [facility] busPIRone 10 mg tablet 10-10 00:00: 00 Yes [id number] 10mg Take 1 tablet by mouth in the morning and 1 tablet in the evening. [facility] SERTraline (ZOLOFT) 25 mg tablet 10-10 00:00: 00 10-18 05:59 :00 No [id number] 25mg Take 1 tablet by mouth in the morning for 7 days. [facility] vitamin w/FA tablet 09-26 00:00: 00 Yes [id number] 1{tbl} Take 1 tablet by mouth in the morning. [facility] docusate 100 mg capsule 09-26 00:00: 00 Yes [id number] 200mg Take 2 capsules by mouth once daily as needed for Constipati on. [facility] ferrous sulfate 325 mg (65 mg iron) tablet 09-26 00:00: 00 Yes [id number] 325mg Take 1 tablet by mouth in the morning and 1 tablet in the evening. [facility] ibuprofen 600 mg tablet 09-26 00:00: 00 Yes [id number] 600mg Take 1 tablet by mouth every 6 (six) hours as needed (Pain). Take with food or milk. [facility] witch Gilbert (TUCKS) 50 % topical pad 09-25 16:22: 14 Yes Topical, Q4HPRN, Starting on Fri09/25/23 at 1022, Until Discontinu ed, Routine, rectal/hem orrhoidal [facility] rho(D) immune globulin (RHOGAM) syringe 300 mcg 09-25 16:18: 36 Yes 300ug 300 mcg, Intramuscu lar, ONCE, For 1 dose, Conditiona l, Routine [facility] HYDROcodone -acetaminop hen (NORCO 5) 5-325 mg tablet 1 tablet 09-25 16:18: 06 Yes 1{tbl} 1 tablet, Oral, Q6HPRN, Starting on Fri09/25/23 at 1018, Until Discontinu ed, Routine, Pain (scale 7-10) [facility] ibuprofen (IBU) tablet 600 mg 09-25 16:18: 06 Yes 600mg 600 mg, Oral, Q6HPRN, Starting on Fri09/25/23 at 1018, Until Discontinu ed, Routine, Pain (scale 4-6) [facility] acetaminoph en (TYLENOL) tablet 650 mg 09-25 16:18: 06 Yes 650mg 650 mg, Oral, Q6HPRN, Starting on Fri09/25/23 at 1018, Until Discontinu ed, Routine, Pain (scale 1-3) [facility] diphenhydrA MINE (BENADRYL) tablet 25 mg 09-25 16:18: 06 Yes 25mg 25 mg, Oral, Q6HPRN, Starting on Fri09/25/23 at 1018, Until Discontinu ed, Routine, Sleep, Itching [facility] ondansetron (ZOFRAN (PF)) injection 4 mg 09-25 16:18: 06 Yes 4mg 4 mg, Slow IV Push, Q8HPRN, Starting on Fri09/25/23 at 1018, Until Discontinu ed, Routine, Nausea and Vomiting (N/V) [facility] simethicone (GAS RELIEF (SIMETHICON E)) chewable tablet 160 mg 09-25 16:18: 06 Yes 160mg 160 mg, Oral, PC+HSPRN, Starting on Fri09/25/23 at 1018, Until Discontinu ed, Routine, Gas [facility] docusate (COLACE) capsule 200 mg 09-25 16:18: 06 Yes 200mg 200 mg, Oral, QDAILYPRN, Starting on Fri09/25/23 at 1018, Until Discontinu ed, Routine, Constipati on [facility] magnesium hydroxide (MILK OF MAGNESIA) 400 mg/5 mL suspension 30 mL 09-25 16:18: 06 Yes 30mL 30 mL, Oral, QDAILYPRN, Starting on Fri09/25/23 at 1018, Until Discontinu ed, Routine, Constipati on [facility] benzocaine- menthol (DERMOPLAST ) 20-0.5 % topical spray 09-25 16:18: 06 Yes Topical, PRN, Starting on Fri09/25/23 at 1018, Until Discontinu ed, Routine, Perineum discomfort [facility] SERTraline (ZOLOFT) tablet 100 mg 09-25 15:00: 00 Yes 100mg 100 mg, Oral, DAILY, First dose on 09/25/24 at 0900, Until Discontinu ed, Routine [facility] fentaNYL-ro pivacaine 2 mcg/mL-0.1 % (PF) in NS 200 mL epidural infusion RTU 09-25 09:30: 00 09-25 14:54 :08 No Epidural, ONCE INTRA PROCEDURE, Starting on Airam 09/25/23 at 0330, Until Airam 09/25/23 at 0854, Routine, Intra-op [facility] lidocaine-e pinephrine (XYLOCAINE W/EPINEPHRI NE) 1.5 %-1:200,000 injection 09-25 09:30: 00 09-25 14:54 :08 No Intraderma l, ONCE INTRA PROCEDURE, Starting on Airam 09/25/23 at 0330, Until Airam 09/25/23 at 0854, Routine, Intra-op [facility] FENTanyl PF (SUBLIMAZE (PF)) injection 100 mcg 09-25 07:40: 08 09-25 16:22 :14 No 100ug 100 mcg, Slow IV Push, Q1HPRN, Starting on Airam 09/25/23 at 0140, Until Airam 09/25/23 at 1022, Routine, contractio n pain without an epidural and SVE < 8 cm and Cat I strip [facility] ondansetron (ZOFRAN (PF)) injection 4 mg 09-25 07:40: 00 09-25 16:22 :14 No 4mg 4 mg, Slow IV Push, Q8HPRN, Nausea and Vomiting (N/V), Starting on Airam 09/25/23 at 0140
Do ses of ondansetro n 16 mg and above need to be administer ed via IV piggyback. For Dose >=24mg ECG monitoring is advisable.
[facility] oxytocin (PITOCIN) 30 units in NS 500 mL IV infusion 09-25 07:38: 50 09-25 16:21 :41 No 2mU/min at 2-40 mL/hr, IV Infusion, TITRATE, Starting on Airam 09/25/23 at 0138, Until Airam 09/25/23 at 1021, ABHAY [facility] oxytocin (PITOCIN) 30 units in NS 500 mL IV infusion 09-25 07:36: 45 09-25 13:45 :00 No 600mL/h 600 mL/hr, IV Infusion, PRN, PPH, Starting on Airam 09/25/23 at 0136, For 1 dose
As instructed by physician at bedside.<b r> [facility] lactated ringers IV infusion 500 mL 09-25 07:36: 45 09-25 16:21 :41 No 500mL at 999 mL/hr, 500 mL, IV Infusion, PRN - SEE INSTRUCTIO NS, Starting on Airam 09/25/23 at 0136, Until Airam 09/25/23 at 1021, Routine [facility] D5W-LR IV infusion 1,000 mL 09-25 07:36: 45 09-25 16:21 :40 No 1000mL at 1-125 mL/hr, IV Infusion, TITRATE, Starting on Airam 09/25/23 at 0136, Until Airam 09/25/23 at 1021, Routine [facility] famotidine 20 mg tablet 2022-09 00:00: 00 09-26 00:00 :00 No [id number] 20mg Take 1 tablet by mouth in the morning and 1 tablet in the evening. [facility] lactated ringers IV infusion 1,000 mL 2022-09 09:30: 00 Yes 1000mL at 125 mL/hr, 1,000 mL, IV Infusion, CONTINUOUS , Starting on Fri09/16/23 at 0330, Until Discontinu ed, Routine [facility] acetaminoph en (TYLENOL) tablet 650 mg 2022-09 09:17: 17 Yes 650mg 650 mg, Oral, Q6HPRN, Starting on Fri09/16/23 at 0317, Until Discontinu ed, Routine, Pain (scale 1-3) [facility] SERTraline 100 mg tablet 2022-09 00:00: 00 09-26 00:00 :00 No [id number] 100mg Take 1 tablet by mouth in the morning. [facility] proMETHazin e (PHENERGAN) tablet 25 mg 2022-09 14:29: 24 Yes 25mg 25 mg, Oral, Q6HPRN, Starting on Fri08/22/23 at 0829, Until Discontinu ed, Routine, Nausea and Vomiting (N/V) [facility] diphenhydrA MINE (BENADRYL) tablet 25 mg 2022-09 03:00: 00 08-22 03:19 :00 No 25mg 25 mg, Oral, ONCE, 1 dose, On Fri08/21/23 at 2100, Routine [facility] ferrous sulfate 325 mg (65 mg iron) tablet 2022-09 00:00: 00 09-26 00:00 :00 No [id number] 325mg Take 1 tablet by mouth in the morning. [facility] cyclobenzap rine (FLEXERIL) tablet 10 mg 2022-09 22:15: 00 08-21 22:06 :00 No 10mg 10 mg, Oral, ONCE NOW, 1 dose, On Fri08/21/23 at 1615, Routine [facility] terbutaline (BRETHINE) injection 0.25 mg 2022-09 19:45: 00 08-21 19:08 :00 No .25mg 0.25 mg, Subcutaneo us, ONCE, 1 dose, On Fri08/21/23 at 1345, Routine [facility] lactated ringers IV infusion 1,000 mL 2022-09 18:00: 00 08-21 19:10 :00 No 1000mL at 999 mL/hr, 1,000 mL, IV Infusion, ONCE, 1 dose, On Fri08/21/23 at 1200, Routine [facility] acetaminoph en (TYLENOL) tablet 1,000 mg 2022-09 17:00: 00 08-21 16:12 :00 No 1000mg 1,000 mg, Oral, ONCE, 1 dose, On Fri08/21/23 at 1100, Routine [facility] ferrous sulfate tablet 325 mg 2022-09 15:00: 00 Yes 325mg 325 mg, Oral, DAILY, First dose on Fri08/21/23 at 0900, Until Discontinu ed, Routine [facility] SERTraline (ZOLOFT) tablet 100 mg 2022-09 15:00: 00 Yes 100mg 100 mg, Oral, DAILY, First dose on Fri08/21/23 at 0900, Until Discontinu ed, Routine [facility] diphenhydrA MINE (BENADRYL) tablet 25 mg 2022-09 09:16: 00 08-21 09:24 :00 No 25mg 25 mg, Oral, ONCE, 1 dose, On Fri08/21/23 at 0330, Routine [facility] fluconazole (DIFLUCAN) tablet 150 mg 2022-09 08:00: 00 08-21 08:00 :00 No 150mg 150 mg, Oral, ONCE, 1 dose, On Fri08/21/23 at 0200, ABHAY
Re ason for Anti-Infec tive: Documented Infection< br>Documen refugio Infection Site: Pelvic
Duration of Therapy: 7 days [facility] alum-mag hydroxide-s imeth (MAG-AL PLUS) 200-200-20 mg/5 mL suspension 30 mL 2022-09 07:05: 45 Yes 30mL 30 mL, Oral, Q6HPRN, Starting on Fri08/21/23 at 0105, Until Discontinu ed, Routine, Indigestio n [facility] docusate (COLACE) capsule 200 mg 2022-09 07:05: 45 Yes 200mg 200 mg, Oral, QHSPRN, Starting on Fri08/21/23 at 0105, Until Discontinu ed, Routine, Constipati on [facility] magnesium hydroxide (MILK OF MAGNESIA) 400 mg/5 mL suspension 30 mL 2022-09 07:05: 45 Yes 30mL 30 mL, Oral, QDAILYPRN, Starting on Fri08/21/23 at 0105, Until Discontinu ed, Routine, Constipati on [facility] ondansetron (ZOFRAN (PF)) injection 4 mg 2022-09 06:45: 00 08-21 06:58 :00 No 4mg 4 mg, Slow IV Push, ONCE, On Fri08/21/23 at 0045, For 1 dose
Do ses of ondansetro n 16 mg and above need to be administer ed via IV piggyback. For Dose >=24mg ECG monitoring is advisable.
[facility] acetaminoph en (TYLENOL) tablet 1,000 mg 2022-09 06:45: 00 08-21 06:58 :00 No 1000mg 1,000 mg, Oral, ONCE, 1 dose, On Fri08/21/23 at 0045, Routine [facility] FENTanyl PF (SUBLIMAZE (PF)) injection 100 mcg 2022-09 02:15: 00 08-21 01:26 :00 No 100ug 100 mcg, Slow IV Push, ONCE, 1 dose, On Fri08/20/23 at 2015, Routine [facility] betamethaso ne acet,sod phos (CELESTONE SOLUSPAN) 6 mg/mL injection 12 mg 2022-09 01:45: 00 08-22 01:34 :00 No 12mg 12 mg, Intramuscu lar, Q24H, 2 doses, First dose on Fri08/20/23 at 1945, Last dose on Fri08/21/23 at 1945, Routine [facility] D5W 0.9% NaCl (NS) IV infusion 1,000 mL 2022-09 23:45: 00 08-21 19:39 :48 No 1000mL at 125 mL/hr, 1,000 mL, IV Infusion, CONTINUOUS , Starting on Fri08/20/23 at 1745, Until Fri08/21/23 at 1339, Routine [facility] SERTraline 100 mg tablet 2022-09 00:00: 00 09-11 00:00 :00 No [id number] 109 100mg Take 1 tablet by mouth in the morning. [facility] Nitrofurant oin&Nit. Macrocryst (MACROBID) 100 mg capsule 2022-09 00:00: 00 08-12 05:59 :00 No [id number] 100mg Take 1 capsule by mouth in the morning and 1 capsule in the evening. Do all this for 7 days. [facility] acetaminoph en (TYLENOL) tablet 650 mg 2022-09 10:00: 00 07-29 09:53 :00 No 650mg 650 mg, Oral, ONCE, 1 dose, On Fri07/29/23 at 0400, Routine [facility] SERTraline 100 mg tablet 05-21 00:00: 00 08-04 00:00 :00 No [id number] 109 100mg Take 1 tablet by mouth in the morning. [facility] ondansetron (ZOFRAN (PF)) injection 4 mg 04-18 20:45: 00 04-18 20:21 :00 No 4mg 4 mg, Slow IV Push, ONCE, On Fri04/18/23 at 1545, For 1 dose
Do ses of ondansetro n 16 mg and above need to be administer ed via IV piggyback. For Dose >=24mg ECG monitoring is advisable.
[facility] NaCl 0.9% (NS) bolus infusion 1,000 mL 04-18 20:30: 00 04-18 19:32 :00 No 1000mL at 999 mL/hr, 1,000 mL, IV Infusion, ONCE, 1 dose, On Fri04/18/23 at 1530, STAT [facility] NaCl 0.9% (NS) bolus infusion 1,000 mL 04-18 19:15: 00 04-18 18:27 :00 No 1000mL at 999 mL/hr, 1,000 mL, IV Infusion, ONCE, 1 dose, On Fri04/18/23 at 1415, STAT [facility] metroNIDAZO LE (FLAGYL) 500 mg tablet 04-18 00:00: 00 08-04 00:00 :00 No [id number] 500mg Take 1 tablet by mouth every 12 (twelve) hours. [facility] FLUCONAZOLE 150MG 04-14 00:00: 00 Yes [id number] [facility] SERTRALINE 50MG 04-14 00:00: 00 Yes [id number] [facility] PROMETHAZIN E 25MG 04-14 00:00: 00 Yes [id number] [facility] fluconazole (DIFLUCAN) 150 mg tablet 04-07 00:00: 00 04-08 04:59 :00 No [id number] 150mg Take 1 tablet by mouth once now for 1 dose. [facility] proMETHazin e 25 mg tablet 04-03 00:00: 00 09-26 00:00 :00 No [id number] 25mg Take 1 tablet by mouth every 4 (four) hours as needed for Nausea and Vomiting (N/V). [facility] SERTraline (ZOLOFT) 50 mg tablet 04-03 00:00: 00 05-08 04:59 :00 No [id number] 109 Take 1 tablet by mouth daily for 4 days, THEN 2 tablets daily for 30 days. [facility] vit 33-iron-fol ic-dha (SELECT-OB + DHA) 29 mg iron-1 mg -250 mg combo pack 03-11 00:00: 00 Yes [id number] 1{packe t} Take 1 Packet by mouth in the morning. [facility] vit 33-iron-fol ic-dha (SELECT-OB + DHA) 29 mg iron-1 mg -250 mg combo pack 03-11 00:00: 00 09-26 00:00 :00 No [id number] 1{packe t} Take 1 Packet by mouth in the morning. [facility] proMETHazin e 25 mg tablet 5-30 00:00: 00 04-03 00:00 :00 No [id number] 25mg Take 1 tablet by mouth every 4 (four) hours as needed for Nausea and Vomiting (N/V). [facility] metroNIDAZO LE 500 mg tablet 02-14 00:00: 00 02-15 04:59 :00 No [id number] 2000mg Take 4 tablets by mouth once now for 1 dose. [facility] ondansetron (ZOFRAN (PF)) injection 4 mg 01-17 04:00: 01-17 03:11 :00 No 4mg 4 mg, Slow IV Push, ONCE, 1 dose, On Fri01/16/22 at 2300, ABHAY [facility] NaCl 0.9% (NS) bolus infusion 1,000 mL 01-17 04:00: 00 01-17 03:52 :00 No 1000mL at 999 mL/hr, 1,000 mL, IV Infusion, ONCE, 1 dose, On Fri01/16/22 at 2300, ABHAY [facility] ondansetron 4 mg disintegrat ing tablet 01-16 00:00: 04-03 00:00 :00 No [id number] 4mg Take 1 tablet by mouth every 8 (eight) hours as needed for Nausea and Vomiting (N/V). [facility] azithromyci n 250 mg tablet 12-17 00:00: 00 02-11 00:00 :00 No [id number] 250mg Take 1 tablet by mouth daily. Take 500 mg day 1, then 250 mg days 2 to 5. [facility] Nitrofurant oin&Nit. Macrocryst 100 mg capsule 05-04 00:00: 00 05-12 04:59 :00 No [id number] 100mg Take 1 capsule by mouth 2 (two) times daily for 7 days. [facility] metroNIDAZO LE 500 mg tablet 04-30 00:00: 00 05-04 00:00 :00 No [id number] 500mg Take 1 tablet by mouth every 12 (twelve) hours. [facility] fluconazole (DIFLUCAN) 200 mg tablet 04-29 00:00: 00 05-04 00:00 :00 No [id number] 200mg Take 1 tablet by mouth daily. [facility] [id number]-[id number], carb,glu-FA -dss-dha (CITRANATAL DHA, ALGAL OIL,) 27 mg iron-1 mg -50 mg-250 mg Cmpk -15 00:00: 00 Yes [id number] Take 1 TAB-CAP/M2 by mouth daily. [facility] Immunizations Ordered Immunization Name Filled Immunization Name Date Status Comments Source Tdap Tdap 2023-08-04 00:00:00 Completed [facility] Influenza, injectable, [facility] Canine Kidney, preservative-free, quadrivalent Influenza, injectable, [facility] Canine Kidney, preservative-free, quadrivalent 2023-08-04 00:00:00 Completed [facility] SARS-COV-2 COVID-19 VACCINE - (MODERNA) 2021-11-01 00:00:00 [address] [facility] SARS-COV-2 COVID-19 VACCINE - (MODERNA) 2021-11-01 00:00:00 Completed [facility] SARS-COV-2 COVID-19 VACCINE - (MODERNA) 2021-11-01 00:00:00 Completed [facility] SARS-COV-2 COVID-19 VACCINE - (MODERNA) 2021-11-01 00:00:00 Completed [facility] SARS-COV-2 COVID-19 VACCINE - (MODERNA) 2021-11-01 00:00:00 Completed [facility] SARS-COV-2 COVID-19 VACCINE - (MODERNA) 2021-11-01 00:00:00 Completed [facility] SARS-COV-2 COVID-19 VACCINE - (MODERNA) 2021-11-01 00:00:00 Completed [facility] SARS-COV-2 COVID-19 VACCINE - (MODERNA) 2021-11-01 00:00:00 Completed [facility] SARS-COV-2 COVID-19 VACCINE - (MODERNA) 2021-11-01 00:00:00 Completed [facility] SARS-COV-2 COVID-19 VACCINE - (MODERNA) 2021-11-01 00:00:00 Completed [facility] SARS-COV-2 COVID-19 VACCINE - (MODERNA) 2021-11-01 00:00:00 Completed [facility] SARS-COV-2 COVID-19 VACCINE - (MODERNA) 2021-11-01 00:00:00 Completed [facility] SARS-COV-2 COVID-19 VACCINE - (MODERNA) 2021-11-01 00:00:00 Completed [facility] SARS-COV-2 COVID-19 VACCINE - (MODERNA) 2021-11-01 00:00:00 Completed [facility] SARS-COV-2 COVID-19 VACCINE - (MODERNA) 2021-11-01 00:00:00 Completed [facility] SARS-COV-2 COVID-19 VACCINE - (MODERNA) 2021-11-01 00:00:00 Completed [facility] SARS-COV-2 COVID-19 VACCINE - (MODERNA) 2021-11-01 00:00:00 Completed [facility] SARS-COV-2 COVID-19 VACCINE - (MODERNA) 2021-11-01 00:00:00 Completed [facility] SARS-COV-2 COVID-19 VACCINE - (MODERNA) 2021-11-01 00:00:00 Completed [facility] SARS-COV-2 COVID-19 VACCINE - (MODERNA) 2021-11-01 00:00:00 Completed [facility] SARS-COV-2 COVID-19 VACCINE - (MODERNA) 2021-11-01 00:00:00 Completed [facility] SARS-COV-2 COVID-19 VACCINE - (MODERNA) 2021-06-08 00:00:00 Completed [facility] SARS-COV-2 COVID-19 VACCINE - (MODERNA) 2021-06-08 00:00:00 Completed [facility] SARS-COV-2 COVID-19 VACCINE - (MODERNA) 2021-06-08 00:00:00 Completed [facility] SARS-COV-2 COVID-19 VACCINE - (MODERNA) 2021-06-08 00:00:00 Completed [facility] SARS-COV-2 COVID-19 VACCINE - (MODERNA) 2021-06-08 00:00:00 Completed [facility] SARS-COV-2 COVID-19 VACCINE - (MODERNA) 2021-06-08 00:00:00 Completed [facility] SARS-COV-2 COVID-19 VACCINE - (MODERNA) 2021-06-08 00:00:00 Completed [facility] SARS-COV-2 COVID-19 VACCINE - (MODERNA) 2021-06-08 00:00:00 Completed [facility] SARS-COV-2 COVID-19 VACCINE - (MODERNA) 2021-06-08 00:00:00 Completed [facility] SARS-COV-2 COVID-19 VACCINE - (MODERNA) 2021-06-08 00:00:00 Completed [facility] SARS-COV-2 COVID-19 VACCINE - (MODERNA) 2021-06-08 00:00:00 Completed [facility] SARS-COV-2 COVID-19 VACCINE - (MODERNA) 2021-06-08 00:00:00 Completed [facility] SARS-COV-2 COVID-19 VACCINE - (MODERNA) 2021-06-08 00:00:00 Completed [facility] SARS-COV-2 COVID-19 VACCINE - (MODERNA) 2021-06-08 00:00:00 Completed [facility] SARS-COV-2 COVID-19 VACCINE - (MODERNA) 2021-06-08 00:00:00 Completed [facility] SARS-COV-2 COVID-19 VACCINE - (MODERNA) 2021-06-08 00:00:00 Completed [facility] SARS-COV-2 COVID-19 VACCINE - (MODERNA) 2021-06-08 00:00:00 Completed [facility] SARS-COV-2 COVID-19 VACCINE - (MODERNA) 2021-06-08 00:00:00 Completed [facility] SARS-COV-2 COVID-19 VACCINE - (MODERNA) 2021-06-08 00:00:00 Completed [facility] SARS-COV-2 COVID-19 VACCINE - (MODERNA) 2021-06-08 00:00:00 Completed [facility] SARS-COV-2 COVID-19 VACCINE - (MODERNA) 2021-06-08 00:00:00 Completed [facility] Influenza Virus Vaccine Quad .5 mL IM 6+ MO 2019-06-29 00:00:00 Completed [facility] Influenza Virus Vaccine Quad .5 mL IM 6+ MO 2019-06-29 00:00:00 Completed [facility] Influenza Virus Vaccine Quad .5 mL IM 6+ MO 2019-06-29 00:00:00 Completed [facility] Influenza Virus Vaccine Quad .5 mL IM 6+ MO 2019-06-29 00:00:00 Completed [facility] Influenza Virus Vaccine Quad .5 mL IM 6+ MO (FLUZONE/FLULAVAL/FL UARIX) 2019-06-29 00:00:00 Completed [facility] Influenza Virus Vaccine Quad .5 mL IM 6+ MO (FLUZONE/FLULAVAL/FL UARIX) 2019-06-29 00:00:00 Completed [facility] Influenza Virus Vaccine Quad .5 mL IM 6+ MO (FLUZONE/FLULAVAL/FL UARIX) 2019-06-29 00:00:00 Completed [facility] Influenza Virus Vaccine Quad .5 mL IM 6+ MO (FLUZONE/FLULAVAL/FL UARIX) 2019-06-29 00:00:00 Completed [facility] Influenza Virus Vaccine Quad .5 mL IM 6+ MO 2019-06-29 00:00:00 Completed [facility] Influenza Virus Vaccine Quad .5 mL IM 6+ MO 2019-06-29 00:00:00 Completed [facility] Influenza Virus Vaccine Quad .5 mL IM 6+ MO 2019-06-29 00:00:00 Completed [facility] Influenza Virus Vaccine Quad .5 mL IM 6+ MO 2019-06-29 00:00:00 Completed [facility] Influenza Virus Vaccine Quad .5 mL IM 6+ MO 2019-06-29 00:00:00 Completed [facility] Influenza Virus Vaccine Quad .5 mL IM 6+ MO 2019-06-29 00:00:00 Completed [facility] Influenza Virus Vaccine Quad .5 mL IM 6+ MO 2019-06-29 00:00:00 Completed [facility] Influenza Virus Vaccine Quad .5 mL IM 6+ MO 2019-06-29 00:00:00 Completed [facility] Influenza Virus Vaccine Quad .5 mL IM 6+ MO 2019-06-29 00:00:00 Completed [facility] Influenza Virus Vaccine Quad .5 mL IM 6+ MO 2019-06-29 00:00:00 Completed [facility] Influenza Virus Vaccine Quad .5 mL IM 6+ MO 2019-06-29 00:00:00 Completed [facility] Influenza Virus Vaccine Quad .5 mL IM 6+ MO 2019-06-29 00:00:00 Completed [facility] Influenza Virus Vaccine Quad .5 mL IM 6+ MO 2019-06-29 00:00:00 Completed [facility] Influenza Virus Vaccine Quad .5 mL IM 6+ MO 2019-06-29 00:00:00 Completed [facility] Influenza Virus Vaccine Quad .5 mL IM 6+ MO 2019-06-29 00:00:00 Completed [facility] Influenza Virus Vaccine Quad .5 mL IM 6+ MO 2019-06-29 00:00:00 Completed [facility] TDAP (ADACEL) VACCINE 2019-05-27 00:00:00 Completed [facility] TDAP (ADACEL) VACCINE 2019-05-27 00:00:00 Completed [facility] TDAP (ADACEL) VACCINE 2019-05-27 00:00:00 Completed [facility] TDAP (ADACEL) VACCINE 2019-05-27 00:00:00 Completed [facility] TDAP (ADACEL) VACCINE 2019-05-27 00:00:00 Completed [facility] TDAP (ADACEL) VACCINE 2019-05-27 00:00:00 Completed [facility] TDAP (ADACEL) VACCINE 2019-05-27 00:00:00 Completed [facility] TDAP (ADACEL) VACCINE 2019-05-27 00:00:00 Completed [facility] TDAP (ADACEL) VACCINE 2019-05-27 00:00:00 Completed [facility] TDAP (ADACEL) VACCINE 2019-05-27 00:00:00 Completed [facility] TDAP (ADACEL) VACCINE 2019-05-27 00:00:00 Completed [facility] TDAP (ADACEL) VACCINE 2019-05-27 00:00:00 Completed [facility] TDAP (ADACEL) VACCINE 2019-05-27 00:00:00 Completed [facility] TDAP (ADACEL) VACCINE 2019-05-27 00:00:00 Completed [facility] TDAP (ADACEL) VACCINE 2019-05-27 00:00:00 Completed [facility] TDAP (ADACEL) VACCINE 2019-05-27 00:00:00 Completed [facility] TDAP (ADACEL) VACCINE 2019-05-27 00:00:00 Completed [facility] TDAP (ADACEL) VACCINE 2019-05-27 00:00:00 Completed [facility] TDAP (ADACEL) VACCINE 2019-05-27 00:00:00 Completed [facility] TDAP (ADACEL) VACCINE 2019-05-27 00:00:00 Completed [facility] TDAP (ADACEL) VACCINE 2019-05-27 00:00:00 Completed [facility] TDAP (ADACEL) VACCINE 2019-05-27 00:00:00 Completed [facility] TDAP (ADACEL) VACCINE 2019-05-27 00:00:00 Completed [facility] TDAP (ADACEL) VACCINE 2019-05-27 00:00:00 Completed [facility] TDAP (ADACEL) VACCINE 2019-05-27 00:00:00 Completed [facility] TDAP (ADACEL) VACCINE 2019-04-01 00:00:00 Completed [facility] TDAP (ADACEL) VACCINE 2019-04-01 00:00:00 Completed [facility] TDAP (ADACEL) VACCINE 2019-04-01 00:00:00 Completed [facility] TDAP (ADACEL) VACCINE 2019-04-01 00:00:00 Completed [facility] TDAP (ADACEL) VACCINE 2019-04-01 00:00:00 Completed [facility] TDAP (ADACEL) VACCINE 2019-04-01 00:00:00 Completed [facility] TDAP (ADACEL) VACCINE 2019-04-01 00:00:00 Completed [facility] TDAP (ADACEL) VACCINE 2019-04-01 00:00:00 Completed [facility] TDAP (ADACEL) VACCINE 2019-04-01 00:00:00 Completed [facility] TDAP (ADACEL) VACCINE 2019-04-01 00:00:00 Completed [facility] TDAP (ADACEL) VACCINE 2019-04-01 00:00:00 Completed [facility] TDAP (ADACEL) VACCINE 2019-04-01 00:00:00 Completed [facility] TDAP (ADACEL) VACCINE 2019-04-01 00:00:00 Completed [facility] TDAP (ADACEL) VACCINE 2019-04-01 00:00:00 Completed [facility] TDAP (ADACEL) VACCINE 2019-04-01 00:00:00 Completed [facility] TDAP (ADACEL) VACCINE 2019-04-01 00:00:00 Completed [facility] TDAP (ADACEL) VACCINE 2019-04-01 00:00:00 Completed [facility] TDAP (ADACEL) VACCINE 2019-04-01 00:00:00 Completed [facility] TDAP (ADACEL) VACCINE 2019-04-01 00:00:00 Completed [facility] TDAP (ADACEL) VACCINE 2019-04-01 00:00:00 Completed [facility] TDAP (ADACEL) VACCINE 2019-04-01 00:00:00 Completed [facility] TDAP (ADACEL) VACCINE 2019-04-01 00:00:00 Completed [facility] TDAP (ADACEL) VACCINE 2019-04-01 00:00:00 Completed [facility] TDAP (ADACEL) VACCINE 2019-04-01 00:00:00 Completed [facility] TDAP (ADACEL) VACCINE 2019-04-01 00:00:00 Completed [facility] TDAP (ADACEL) VACCINE 2019-04-01 00:00:00 Completed [facility] TDAP (ADACEL) VACCINE 2019-04-01 00:00:00 Completed [facility] TDAP (ADACEL) VACCINE 2019-04-01 00:00:00 Completed [facility] TDAP (ADACEL) VACCINE 2019-04-01 00:00:00 Completed [facility] TDAP (ADACEL) VACCINE 2019-04-01 00:00:00 Completed [facility] TDAP (ADACEL) VACCINE 2019-04-01 00:00:00 Completed [facility] TDAP (ADACEL) VACCINE 2019-04-01 00:00:00 Completed [facility] TDAP (ADACEL) VACCINE 2019-04-01 00:00:00 Completed [facility] TDAP (ADACEL) VACCINE 2019-04-01 00:00:00 Completed [facility] TDAP (ADACEL) VACCINE 2019-04-01 00:00:00 Completed [facility] TDAP (ADACEL) VACCINE 2019-04-01 00:00:00 Completed [facility] TDAP (ADACEL) VACCINE 2019-04-01 00:00:00 Completed [facility] Influenza Virus Vaccine Quad .5 mL IM 6+ MO 2019-01-04 00:00:00 Completed [facility] Influenza Virus Vaccine Quad .5 mL IM 6+ MO 2019-01-04 00:00:00 Completed [facility] Influenza Virus Vaccine Quad .5 mL IM 6+ MO 2019-01-04 00:00:00 Completed [facility] Influenza Virus Vaccine Quad .5 mL IM 6+ MO 2019-01-04 00:00:00 Completed [facility] Influenza Virus Vaccine Quad .5 mL IM 6+ MO 2019-01-04 00:00:00 Completed [facility] Influenza Virus Vaccine Quad .5 mL IM 6+ MO (FLUZONE/FLULAVAL/FL UARIX) 2019-01-04 00:00:00 Completed [facility] Influenza Virus Vaccine Quad .5 mL IM 6+ MO (FLUZONE/FLULAVAL/FL UARIX) 2019-01-04 00:00:00 Completed [facility] Influenza Virus Vaccine Quad .5 mL IM 6+ MO (FLUZONE/FLULAVAL/FL UARIX) 2019-01-04 00:00:00 Completed [facility] Influenza Virus Vaccine Quad .5 mL IM 6+ MO (FLUZONE/FLULAVAL/FL UARIX) 2019-01-04 00:00:00 Completed [facility] Influenza Virus Vaccine Quad .5 mL IM 6+ MO 2019-01-04 00:00:00 Completed [facility] Influenza Virus Vaccine Quad .5 mL IM 6+ MO 2019-01-04 00:00:00 Completed [facility] Influenza Virus Vaccine Quad .5 mL IM 6+ MO 2019-01-04 00:00:00 Completed [facility] Influenza Virus Vaccine Quad .5 mL IM 6+ MO 2019-01-04 00:00:00 Completed [facility] Influenza Virus Vaccine Quad .5 mL IM 6+ MO 2019-01-04 00:00:00 Completed [facility] Influenza Virus Vaccine Quad .5 mL IM 6+ MO 2019-01-04 00:00:00 Completed [facility] Influenza Virus Vaccine Quad .5 mL IM 6+ MO 2019-01-04 00:00:00 Completed [facility] Influenza Virus Vaccine Quad .5 mL IM 6+ MO 2019-01-04 00:00:00 Completed [facility] Influenza Virus Vaccine Quad .5 mL IM 6+ MO 2019-01-04 00:00:00 Completed [facility] Influenza Virus Vaccine Quad .5 mL IM 6+ MO 2019-01-04 00:00:00 Completed [facility] Influenza Virus Vaccine Quad .5 mL IM 6+ MO 2019-01-04 00:00:00 Completed [facility] Influenza Virus Vaccine Quad .5 mL IM 6+ MO 2019-01-04 00:00:00 Completed [facility] Influenza Virus Vaccine Quad .5 mL IM 6+ MO 2019-01-04 00:00:00 Completed [facility] Influenza Virus Vaccine Quad .5 mL IM 6+ MO 2019-01-04 00:00:00 Completed [facility] Influenza Virus Vaccine Quad .5 mL IM 6+ MO 2019-01-04 00:00:00 Completed [facility] Influenza Virus Vaccine Quad .5 mL IM 6+ MO 2019-01-04 00:00:00 Completed [facility] Influenza Virus Vaccine Quad .5 mL IM 6+ MO 2019-01-04 00:00:00 Completed [facility] Influenza Virus Vaccine Quad .5 mL IM 6+ MO 2019-01-04 00:00:00 Completed [facility] Influenza Virus Vaccine Quad .5 mL IM 6+ MO 2019-01-04 00:00:00 Completed [facility] Influenza Virus Vaccine Quad .5 mL IM 6+ MO 2019-01-04 00:00:00 Completed [facility] Influenza Virus Vaccine Quad .5 mL IM 6+ MO 2019-01-04 00:00:00 Completed [facility] Influenza Virus Vaccine Quad .5 mL IM 6+ MO 2019-01-04 00:00:00 Completed [facility] Influenza Virus Vaccine Quad .5 mL IM 6+ MO 2019-01-04 00:00:00 Completed [facility] Influenza Virus Vaccine Quad .5 mL IM 6+ MO 2019-01-04 00:00:00 Completed [facility] Influenza Virus Vaccine Quad .5 mL IM 6+ MO 2019-01-04 00:00:00 Completed [facility] Influenza Virus Vaccine Quad .5 mL IM 6+ MO 2019-01-04 00:00:00 Completed [facility] Influenza Virus Vaccine Quad .5 mL IM 6+ MO 2019-01-04 00:00:00 Completed [facility] Influenza Virus Vaccine Quad .5 mL IM 6+ MO 2019-01-04 00:00:00 Completed [facility] HPV 2015-04-13 00:00:00 Completed [facility] Meningococcal Polysaccharide (groups A, C, Y and W-135) conjugate vaccine (MCV4P) 2015-04-13 00:00:00 Completed [facility] TDAP (ADACEL) VACCINE 2015-04-13 00:00:00 Completed [facility] HPV 2015-04-13 00:00:00 Completed [facility] Meningococcal Polysaccharide (groups A, C, Y and W-135) conjugate vaccine (MCV4P) 2015-04-13 00:00:00 Completed [facility] TDAP (ADACEL) VACCINE 2015-04-13 00:00:00 Completed [facility] HPV 2015-04-13 00:00:00 Completed [facility] HPV 2015-04-13 00:00:00 Completed [facility] Meningococcal Polysaccharide (groups A, C, Y and W-135) conjugate vaccine (MCV4P) 2015-04-13 00:00:00 Completed [facility] TDAP (ADACEL) VACCINE 2015-04-13 00:00:00 Completed [facility] Meningococcal Polysaccharide (groups A, C, Y and W-135) conjugate vaccine (MCV4P) 2015-04-13 00:00:00 Completed [facility] TDAP (ADACEL) VACCINE 2015-04-13 00:00:00 Completed [facility] HPV 2015-04-13 00:00:00 Completed [facility] Meningococcal Polysaccharide (groups A, C, Y and W-135) conjugate vaccine (MCV4P) 2015-04-13 00:00:00 Completed [facility] TDAP (ADACEL) VACCINE 2015-04-13 00:00:00 Completed [facility] HPV 2015-04-13 00:00:00 Completed [facility] Meningococcal Polysaccharide (groups A, C, Y and W-135) conjugate vaccine (MCV4P) 2015-04-13 00:00:00 Completed [facility] TDAP (ADACEL) VACCINE 2015-04-13 00:00:00 Completed [facility] HPV 2015-04-13 00:00:00 Completed [facility] Meningococcal Polysaccharide (groups A, C, Y and W-135) conjugate vaccine (MCV4P) 2015-04-13 00:00:00 Completed [facility] TDAP (ADACEL) VACCINE 2015-04-13 00:00:00 Completed [facility] HPV 2015-04-13 00:00:00 Completed [facility] Meningococcal Polysaccharide (groups A, C, Y and W-135) conjugate vaccine (MCV4P) 2015-04-13 00:00:00 Completed [facility] TDAP (ADACEL) VACCINE 2015-04-13 00:00:00 Completed [facility] HPV 2015-04-13 00:00:00 Completed [facility] Meningococcal Polysaccharide (groups A, C, Y and W-135) conjugate vaccine (MCV4P) 2015-04-13 00:00:00 Completed [facility] TDAP (ADACEL) VACCINE 2015-04-13 00:00:00 Completed [facility] HPV 2015-04-13 00:00:00 Completed [facility] Meningococcal Polysaccharide (groups A, C, Y and W-135) conjugate vaccine (MCV4P) 2015-04-13 00:00:00 Completed [facility] TDAP (ADACEL) VACCINE 2015-04-13 00:00:00 Completed [facility] HPV 2015-04-13 00:00:00 Completed [facility] Meningococcal Polysaccharide (groups A, C, Y and W-135) conjugate vaccine (MCV4P) 2015-04-13 00:00:00 Completed [facility] TDAP (ADACEL) VACCINE 2015-04-13 00:00:00 Completed [facility] HPV 2015-04-13 00:00:00 Completed [facility] Meningococcal Polysaccharide (groups A, C, Y and W-135) conjugate vaccine (MCV4P) 2015-04-13 00:00:00 Completed [facility] TDAP (ADACEL) VACCINE 2015-04-13 00:00:00 Completed [facility] HPV 2015-04-13 00:00:00 Completed [facility] Meningococcal Polysaccharide (groups A, C, Y and W-135) conjugate vaccine (MCV4P) 2015-04-13 00:00:00 Completed [facility] TDAP (ADACEL) VACCINE 2015-04-13 00:00:00 Completed [facility] HPV 2015-04-13 00:00:00 Completed [facility] Meningococcal Polysaccharide (groups A, C, Y and W-135) conjugate vaccine (MCV4P) 2015-04-13 00:00:00 Completed [facility] TDAP (ADACEL) VACCINE 2015-04-13 00:00:00 Completed [facility] HPV 2015-04-13 00:00:00 Completed [facility] Meningococcal Polysaccharide (groups A, C, Y and W-135) conjugate vaccine (MCV4P) 2015-04-13 00:00:00 Completed [facility] TDAP (ADACEL) VACCINE 2015-04-13 00:00:00 Completed [facility] HPV 2015-04-13 00:00:00 Completed [facility] Meningococcal Polysaccharide (groups A, C, Y and W-135) conjugate vaccine (MCV4P) 2015-04-13 00:00:00 Completed [facility] TDAP (ADACEL) VACCINE 2015-04-13 00:00:00 Completed [facility] HPV 2015-04-13 00:00:00 Completed [facility] Meningococcal Polysaccharide (groups A, C, Y and W-135) conjugate vaccine (MCV4P) 2015-04-13 00:00:00 Completed [facility] TDAP (ADACEL) VACCINE 2015-04-13 00:00:00 Completed [facility] HPV 2015-04-13 00:00:00 Completed [facility] Meningococcal Polysaccharide (groups A, C, Y and W-135) conjugate vaccine (MCV4P) 2015-04-13 00:00:00 Completed [facility] TDAP (ADACEL) VACCINE 2015-04-13 00:00:00 Completed [facility] HPV 2015-04-13 00:00:00 Completed [facility] Meningococcal Polysaccharide (groups A, C, Y and W-135) conjugate vaccine (MCV4P) 2015-04-13 00:00:00 Completed [facility] HPV 2015-04-13 00:00:00 Completed [facility] Meningococcal Polysaccharide (groups A, C, Y and W-135) conjugate vaccine (MCV4P) 2015-04-13 00:00:00 Completed [facility] TDAP (ADACEL) VACCINE 2015-04-13 00:00:00 Completed [facility] TDAP (ADACEL) VACCINE 2015-04-13 00:00:00 Completed [facility] HPV 2015-04-13 00:00:00 Completed [facility] Meningococcal Polysaccharide (groups A, C, Y and W-135) conjugate vaccine (MCV4P) 2015-04-13 00:00:00 Completed [facility] TDAP (ADACEL) VACCINE 2015-04-13 00:00:00 Completed [facility] HPV 2015-04-13 00:00:00 Completed [facility] Meningococcal Polysaccharide (groups A, C, Y and W-135) conjugate vaccine (MCV4P) 2015-04-13 00:00:00 Completed [facility] TDAP (ADACEL) VACCINE 2015-04-13 00:00:00 Completed [facility] HPV 2015-04-13 00:00:00 Completed [facility] Meningococcal Polysaccharide (groups A, C, Y and W-135) conjugate vaccine (MCV4P) 2015-04-13 00:00:00 Completed [facility] TDAP (ADACEL) VACCINE 2015-04-13 00:00:00 Completed [facility] HPV 2015-04-13 00:00:00 Completed [facility] Meningococcal Polysaccharide (groups A, C, Y and W-135) conjugate vaccine (MCV4P) 2015-04-13 00:00:00 Completed [facility] TDAP (ADACEL) VACCINE 2015-04-13 00:00:00 Completed [facility] HPV 2015-04-13 00:00:00 Completed [facility] Meningococcal Polysaccharide (groups A, C, Y and W-135) conjugate vaccine (MCV4P) 2015-04-13 00:00:00 Completed [facility] TDAP (ADACEL) VACCINE 2015-04-13 00:00:00 Completed [facility] HPV 2015-04-13 00:00:00 Completed [facility] Meningococcal Polysaccharide (groups A, C, Y and W-135) conjugate vaccine (MCV4P) 2015-04-13 00:00:00 Completed [facility] TDAP (ADACEL) VACCINE 2015-04-13 00:00:00 Completed [facility] HPV 2015-04-13 00:00:00 Completed [facility] Meningococcal Polysaccharide (groups A, C, Y and W-135) conjugate vaccine (MCV4P) 2015-04-13 00:00:00 Completed [facility] TDAP (ADACEL) VACCINE 2015-04-13 00:00:00 Completed [facility] HPV 2015-04-13 00:00:00 Completed [facility] Meningococcal Polysaccharide (groups A, C, Y and W-135) conjugate vaccine (MCV4P) 2015-04-13 00:00:00 Completed [facility] HPV 2015-04-13 00:00:00 Completed [facility] Meningococcal Polysaccharide (groups A, C, Y and W-135) conjugate vaccine (MCV4P) 2015-04-13 00:00:00 Completed [facility] TDAP (ADACEL) VACCINE 2015-04-13 00:00:00 Completed [facility] TDAP (ADACEL) VACCINE 2015-04-13 00:00:00 Completed [facility] HPV 2015-04-13 00:00:00 Completed [facility] Meningococcal Polysaccharide (groups A, C, Y and W-135) conjugate vaccine (MCV4P) 2015-04-13 00:00:00 Completed [facility] TDAP (ADACEL) VACCINE 2015-04-13 00:00:00 Completed [facility] HPV 2015-04-13 00:00:00 Completed [facility] Meningococcal Polysaccharide (groups A, C, Y and W-135) conjugate vaccine (MCV4P) 2015-04-13 00:00:00 Completed [facility] TDAP (ADACEL) VACCINE 2015-04-13 00:00:00 Completed [facility] HPV 2015-04-13 00:00:00 Completed [facility] Meningococcal Polysaccharide (groups A, C, Y and W-135) conjugate vaccine (MCV4P) 2015-04-13 00:00:00 Completed [facility] TDAP (ADACEL) VACCINE 2015-04-13 00:00:00 Completed [facility] HPV 2015-04-13 00:00:00 Completed [facility] Meningococcal Polysaccharide (groups A, C, Y and W-135) conjugate vaccine (MCV4P) 2015-04-13 00:00:00 Completed [facility] TDAP (ADACEL) VACCINE 2015-04-13 00:00:00 Completed [facility] HPV 2015-04-13 00:00:00 Completed [facility] Meningococcal Polysaccharide (groups A, C, Y and W-135) conjugate vaccine (MCV4P) 2015-04-13 00:00:00 Completed [facility] TDAP (ADACEL) VACCINE 2015-04-13 00:00:00 Completed [facility] HPV 2015-04-13 00:00:00 Completed [facility] Meningococcal Polysaccharide (groups A, C, Y and W-135) conjugate vaccine (MCV4P) 2015-04-13 00:00:00 Completed [facility] TDAP (ADACEL) VACCINE 2015-04-13 00:00:00 Completed [facility] HPV 2015-04-13 00:00:00 Completed [facility] Meningococcal Polysaccharide (groups A, C, Y and W-135) conjugate vaccine (MCV4P) 2015-04-13 00:00:00 Completed [facility] TDAP (ADACEL) VACCINE 2015-04-13 00:00:00 Completed [facility] HPV 2015-04-13 00:00:00 Completed [facility] Meningococcal Polysaccharide (groups A, C, Y and W-135) conjugate vaccine (MCV4P) 2015-04-13 00:00:00 Completed [facility] TDAP (ADACEL) VACCINE 2015-04-13 00:00:00 Completed [facility] HPV, quadrivalent HPV, quadrivalent 2015-04-13 00:00:00 Completed [facility] meningococcal MCV4P meningococcal MCV4P 00:00:00 Completed [facility] Tdap Tdap 2015-04-13 00:00:00 Completed [facility] HPV 2012-06-29 00:00:00 Completed [facility] HPV 2012-06-29 00:00:00 Completed [facility] HPV 2012-06-29 00:00:00 Completed [facility] HPV 2012-06-29 00:00:00 Completed [facility] HPV 2012-06-29 00:00:00 Completed [facility] HPV 2012-06-29 00:00:00 Completed [facility] HPV 2012-06-29 00:00:00 Completed [facility] HPV 2012-06-29 00:00:00 Completed [facility] HPV 2012-06-29 00:00:00 Completed [facility] HPV 2012-06-29 00:00:00 Completed [facility] HPV 2012-06-29 00:00:00 Completed [facility] HPV 2012-06-29 00:00:00 Completed [facility] HPV 2012-06-29 00:00:00 Completed [facility] HPV 2012-06-29 00:00:00 Completed [facility] HPV 2012-06-29 00:00:00 Completed [facility] HPV 2012-06-29 00:00:00 Completed [facility] HPV 2012-06-29 00:00:00 Completed [facility] HPV 2012-06-29 00:00:00 Completed [facility] HPV 2012-06-29 00:00:00 Completed [facility] HPV 2012-06-29 00:00:00 Completed [facility] HPV 2012-06-29 00:00:00 Completed [facility] HPV 2012-06-29 00:00:00 Completed [facility] HPV 2012-06-29 00:00:00 Completed [facility] HPV 2012-06-29 00:00:00 Completed [facility] HPV, quadrivalent HPV, quadrivalent 2012-06-29 00:00:00 Completed [facility] Tetanus/Diptheria 2009-12-12 00:00:00 Completed [facility] Meningococcal Polysaccharide (groups A, C, Y and W-135) conjugate vaccine (MCV4P) 2009-12-12 00:00:00 Completed [facility] Varicella (varivax)(chicken pox) 2009-12-12 00:00:00 Completed [facility] HEPATITIS A 2009-12-12 00:00:00 Completed [facility] Tetanus/Diptheria 2009-12-12 00:00:00 Completed [facility] Meningococcal Polysaccharide (groups A, C, Y and W-135) conjugate vaccine (MCV4P) 2009-12-12 00:00:00 Completed [facility] Varicella (varivax)(chicken pox) 2009-12-12 00:00:00 Completed [facility] HEPATITIS A 2009-12-12 00:00:00 Completed [facility] Tetanus/Diptheria 2009-12-12 00:00:00 Completed [facility] Meningococcal Polysaccharide (groups A, C, Y and W-135) conjugate vaccine (MCV4P) 2009-12-12 00:00:00 Completed [facility] Varicella (varivax)(chicken pox) 2009-12-12 00:00:00 Completed [facility] HEPATITIS A 2009-12-12 00:00:00 Completed [facility] Tetanus/Diptheria 2009-12-12 00:00:00 Completed [facility] Meningococcal Polysaccharide (groups A, C, Y and W-135) conjugate vaccine (MCV4P) 2009-12-12 00:00:00 Completed [facility] Varicella (varivax)(chicken pox) 2009-12-12 00:00:00 Completed [facility] HEPATITIS A 2009-12-12 00:00:00 Completed [facility] Tetanus/Diptheria 2009-12-12 00:00:00 Completed [facility] Meningococcal Polysaccharide (groups A, C, Y and W-135) conjugate vaccine (MCV4P) 2009-12-12 00:00:00 Completed [facility] Varicella (varivax)(chicken pox) 2009-12-12 00:00:00 Completed [facility] HEPATITIS A 2009-12-12 00:00:00 Completed [facility] Tetanus/Diptheria 2009-12-12 00:00:00 Completed [facility] Meningococcal Polysaccharide (groups A, C, Y and W-135) conjugate vaccine (MCV4P) 2009-12-12 00:00:00 Completed [facility] Varicella (varivax)(chicken pox) 2009-12-12 00:00:00 Completed [facility] HEPATITIS A 2009-12-12 00:00:00 Completed [facility] Tetanus/Diptheria 2009-12-12 00:00:00 Completed [facility] Meningococcal Polysaccharide (groups A, C, Y and W-135) conjugate vaccine (MCV4P) 2009-12-12 00:00:00 Completed [facility] Varicella (varivax)(chicken pox) 2009-12-12 00:00:00 Completed [facility] HEPATITIS A 2009-12-12 00:00:00 Completed [facility] Tetanus/Diptheria 2009-12-12 00:00:00 Completed [facility] Meningococcal Polysaccharide (groups A, C, Y and W-135) conjugate vaccine (MCV4P) 2009-12-12 00:00:00 Completed [facility] Varicella (varivax)(chicken pox) 2009-12-12 00:00:00 Completed [facility] HEPATITIS A 2009-12-12 00:00:00 Completed [facility] Tetanus/Diptheria 2009-12-12 00:00:00 Completed [facility] Meningococcal Polysaccharide (groups A, C, Y and W-135) conjugate vaccine (MCV4P) 2009-12-12 00:00:00 Completed [facility] Varicella (varivax)(chicken pox) 2009-12-12 00:00:00 Completed [facility] Meningococcal Polysaccharide (groups A, C, Y and W-135) conjugate vaccine (MCV4P) 2009-12-12 00:00:00 Completed [facility] Varicella (varivax)(chicken pox) 2009-12-12 00:00:00 Completed [facility] Meningococcal Polysaccharide (groups A, C, Y and W-135) conjugate vaccine (MCV4P) 2009-12-12 00:00:00 Completed [facility] Varicella (varivax)(chicken pox) 2009-12-12 00:00:00 Completed [facility] Meningococcal Polysaccharide (groups A, C, Y and W-135) conjugate vaccine (MCV4P) 2009-12-12 00:00:00 Completed [facility] Varicella (varivax)(chicken pox) 2009-12-12 00:00:00 Completed [facility] HEPATITIS A 2009-12-12 00:00:00 Completed [facility] Tetanus/Diptheria 2009-12-12 00:00:00 Completed [facility] Meningococcal Polysaccharide (groups A, C, Y and W-135) conjugate vaccine (MCV4P) 2009-12-12 00:00:00 Completed [facility] Varicella (varivax)(chicken pox) 2009-12-12 00:00:00 Completed [facility] HEPATITIS A 2009-12-12 00:00:00 Completed [facility] Tetanus/Diptheria 2009-12-12 00:00:00 Completed [facility] Meningococcal Polysaccharide (groups A, C, Y and W-135) conjugate vaccine (MCV4P) 2009-12-12 00:00:00 Completed [facility] Varicella (varivax)(chicken pox) 2009-12-12 00:00:00 Completed [facility] HEPATITIS A 2009-12-12 00:00:00 Completed [facility] Tetanus/Diptheria 2009-12-12 00:00:00 Completed [facility] Meningococcal Polysaccharide (groups A, C, Y and W-135) conjugate vaccine (MCV4P) 2009-12-12 00:00:00 Completed [facility] Varicella (varivax)(chicken pox) 2009-12-12 00:00:00 Completed [facility] HEPATITIS A 2009-12-12 00:00:00 Completed [facility] Tetanus/Diptheria 2009-12-12 00:00:00 Completed [facility] Meningococcal Polysaccharide (groups A, C, Y and W-135) conjugate vaccine (MCV4P) 2009-12-12 00:00:00 Completed [facility] Varicella (varivax)(chicken pox) 2009-12-12 00:00:00 Completed [facility] HEPATITIS A 2009-12-12 00:00:00 Completed [facility] Tetanus/Diptheria 2009-12-12 00:00:00 Completed [facility] Meningococcal Polysaccharide (groups A, C, Y and W-135) conjugate vaccine (MCV4P) 2009-12-12 00:00:00 Completed [facility] Varicella (varivax)(chicken pox) 2009-12-12 00:00:00 Completed [facility] HEPATITIS A 2009-12-12 00:00:00 Completed [facility] Tetanus/Diptheria 2009-12-12 00:00:00 Completed [facility] Meningococcal Polysaccharide (groups A, C, Y and W-135) conjugate vaccine (MCV4P) 2009-12-12 00:00:00 Completed [facility] Varicella (varivax)(chicken pox) 2009-12-12 00:00:00 Completed [facility] HEPATITIS A 2009-12-12 00:00:00 Completed [facility] Tetanus/Diptheria 2009-12-12 00:00:00 Completed [facility] Meningococcal Polysaccharide (groups A, C, Y and W-135) conjugate vaccine (MCV4P) 2009-12-12 00:00:00 Completed [facility] Varicella (varivax)(chicken pox) 2009-12-12 00:00:00 Completed [facility] HEPATITIS A 2009-12-12 00:00:00 Completed [facility] Tetanus/Diptheria 2009-12-12 00:00:00 Completed [facility] Meningococcal Polysaccharide (groups A, C, Y and W-135) conjugate vaccine (MCV4P) 2009-12-12 00:00:00 Completed [facility] Varicella (varivax)(chicken pox) 2009-12-12 00:00:00 Completed [facility] HEPATITIS A 2009-12-12 00:00:00 Completed [facility] Tetanus/Diptheria 2009-12-12 00:00:00 Completed [facility] Meningococcal Polysaccharide (groups A, C, Y and W-135) conjugate vaccine (MCV4P) 2009-12-12 00:00:00 Completed [facility] Varicella (varivax)(chicken pox) 2009-12-12 00:00:00 Completed [facility] HEPATITIS A 2009-12-12 00:00:00 Completed [facility] Tetanus/Diptheria 2009-12-12 00:00:00 Completed [facility] Meningococcal Polysaccharide (groups A, C, Y and W-135) conjugate vaccine (MCV4P) 2009-12-12 00:00:00 Completed [facility] Varicella (varivax)(chicken pox) 2009-12-12 00:00:00 Completed [facility] HEPATITIS A 2009-12-12 00:00:00 Completed [facility] Tetanus/Diptheria 2009-12-12 00:00:00 Completed [facility] Meningococcal Polysaccharide (groups A, C, Y and W-135) conjugate vaccine (MCV4P) 2009-12-12 00:00:00 Completed [facility] Varicella (varivax)(chicken pox) 2009-12-12 00:00:00 Completed [facility] HEPATITIS A 2009-12-12 00:00:00 Completed [facility] Tetanus/Diptheria 2009-12-12 00:00:00 Completed [facility] Meningococcal Polysaccharide (groups A, C, Y and W-135) conjugate vaccine (MCV4P) 2009-12-12 00:00:00 Completed [facility] Varicella (varivax)(chicken pox) 2009-12-12 00:00:00 Completed [facility] HEPATITIS A 2009-12-12 00:00:00 Completed [facility] varicella varicella 2009-12-12 00:00:00 Completed [facility] meningococcal MCV4P meningococcal MCV4P 00:00:00 Completed [facility] Hep A, ped/adol, 2 dose Hep A, ped/adol, 2 dose 2009-12-12 00:00:00 Completed [facility] Td (adult), adsorbed Td (adult), adsorbed 2009-12-12 00:00:00 Completed [facility] DTaP, Unspecified Formulation 2003-04-28 00:00:00 Completed [facility] MMR 2003-04-28 00:00:00 Completed [facility] IPV 2003-04-28 00:00:00 Completed [facility] DTaP, Unspecified Formulation 2003-04-28 00:00:00 Completed [facility] MMR 2003-04-28 00:00:00 Completed [facility] IPV 2003-04-28 00:00:00 Completed [facility] DTaP, Unspecified Formulation 2003-04-28 00:00:00 Completed [facility] MMR 2003-04-28 00:00:00 Completed [facility] IPV 2003-04-28 00:00:00 Completed [facility] DTaP, Unspecified Formulation 2003-04-28 00:00:00 Completed [facility] MMR 2003-04-28 00:00:00 Completed [facility] IPV 2003-04-28 00:00:00 Completed [facility] DTaP, Unspecified Formulation 2003-04-28 00:00:00 Completed [facility] MMR 2003-04-28 00:00:00 Completed [facility] IPV 2003-04-28 00:00:00 Completed [facility] DTaP, Unspecified Formulation 2003-04-28 00:00:00 Completed [facility] MMR 2003-04-28 00:00:00 Completed [facility] IPV 2003-04-28 00:00:00 Completed [facility] DTaP, Unspecified Formulation 2003-04-28 00:00:00 Completed [facility] MMR 2003-04-28 00:00:00 Completed [facility] IPV 2003-04-28 00:00:00 Completed [facility] DTaP, Unspecified Formulation 2003-04-28 00:00:00 Completed [facility] MMR 2003-04-28 00:00:00 Completed [facility] IPV 2003-04-28 00:00:00 Completed [facility] DTaP, Unspecified Formulation 2003-04-28 00:00:00 Completed [facility] MMR 2003-04-28 00:00:00 Completed [facility] IPV 2003-04-28 00:00:00 Completed [facility] DTaP, Unspecified Formulation 2003-04-28 00:00:00 Completed [facility] MMR 2003-04-28 00:00:00 Completed [facility] IPV 2003-04-28 00:00:00 Completed [facility] DTaP, Unspecified Formulation 2003-04-28 00:00:00 Completed [facility] MMR 2003-04-28 00:00:00 Completed [facility] IPV 2003-04-28 00:00:00 Completed [facility] DTaP, Unspecified Formulation 2003-04-28 00:00:00 Completed [facility] MMR 2003-04-28 00:00:00 Completed [facility] IPV 2003-04-28 00:00:00 Completed [facility] DTaP, Unspecified Formulation 2003-04-28 00:00:00 Completed [facility] MMR 2003-04-28 00:00:00 Completed [facility] IPV 2003-04-28 00:00:00 Completed [facility] DTaP, Unspecified Formulation 2003-04-28 00:00:00 Completed [facility] MMR 2003-04-28 00:00:00 Completed [facility] IPV 2003-04-28 00:00:00 Completed [facility] DTaP, Unspecified Formulation 2003-04-28 00:00:00 Completed [facility] MMR 2003-04-28 00:00:00 Completed [facility] IPV 2003-04-28 00:00:00 Completed [facility] DTaP, Unspecified Formulation 2003-04-28 00:00:00 Completed [facility] MMR 2003-04-28 00:00:00 Completed [facility] IPV 2003-04-28 00:00:00 Completed [facility] DTaP, Unspecified Formulation 2003-04-28 00:00:00 Completed [facility] MMR 2003-04-28 00:00:00 Completed [facility] IPV 2003-04-28 00:00:00 Completed [facility] DTaP, Unspecified Formulation 2003-04-28 00:00:00 Completed [facility] MMR 2003-04-28 00:00:00 Completed [facility] IPV 2003-04-28 00:00:00 Completed [facility] DTaP, Unspecified Formulation 2003-04-28 00:00:00 Completed [facility] MMR 2003-04-28 00:00:00 Completed [facility] IPV 2003-04-28 00:00:00 Completed [facility] DTaP, Unspecified Formulation 2003-04-28 00:00:00 Completed [facility] MMR 2003-04-28 00:00:00 Completed [facility] IPV 2003-04-28 00:00:00 Completed [facility] DTaP, Unspecified Formulation 2003-04-28 00:00:00 Completed [facility] MMR 2003-04-28 00:00:00 Completed [facility] IPV 2003-04-28 00:00:00 Completed [facility] IPV IPV 2003-04-28 00:00:00 Completed [facility] DTaP, unspecified formul DTaP, unspecified formul 2003-04-28 00:00:00 Completed [facility] MMR MMR 2003-04-28 00:00:00 Completed [facility] HIB 4 Dose Schedule 2002-11-11 00:00:00 Completed [facility] Hep B, Adol or Pedi Dosage 2002-11-11 00:00:00 Completed [facility] MMR 2002-11-11 00:00:00 Completed [facility] DTaP, Unspecified Formulation 2002-11-11 00:00:00 Completed [facility] Polio (IPV/OPV) 2002-11-11 00:00:00 Completed [facility] IPV 2002-11-11 00:00:00 Completed [facility] Varicella (varivax)(chicken pox) 2002-11-11 00:00:00 Completed [facility] DTAP 2002-11-11 00:00:00 Completed [facility] Hep B, Adol or Pedi Dosage 2002-11-11 00:00:00 Completed [facility] HIB 4 Dose Schedule 2002-11-11 00:00:00 Completed [facility] DTaP, Unspecified Formulation 2002-11-11 00:00:00 Completed [facility] Polio (IPV/OPV) 2002-11-11 00:00:00 Completed [facility] IPV 2002-11-11 00:00:00 Completed [facility] MMR 2002-11-11 00:00:00 Completed [facility] Varicella (varivax)(chicken pox) 2002-11-11 00:00:00 Completed [facility] DTaP, Unspecified Formulation 2002-11-11 00:00:00 Completed [facility] IPV 2002-11-11 00:00:00 Completed [facility] DTaP, Unspecified Formulation 2002-11-11 00:00:00 Completed [facility] IPV 2002-11-11 00:00:00 Completed [facility] DTaP, Unspecified Formulation 2002-11-11 00:00:00 Completed [facility] IPV 2002-11-11 00:00:00 Completed [facility] DTAP 2002-11-11 00:00:00 Completed [facility] HIB 4 Dose Schedule 2002-11-11 00:00:00 Completed [facility] Hep B, Adol or Pedi Dosage 2002-11-11 00:00:00 Completed [facility] DTaP, Unspecified Formulation 2002-11-11 00:00:00 Completed [facility] MMR 2002-11-11 00:00:00 Completed [facility] IPV 2002-11-11 00:00:00 Completed [facility] Polio (IPV/OPV) 2002-11-11 00:00:00 Completed [facility] Varicella (varivax)(chicken pox) 2002-11-11 00:00:00 Completed [facility] DTAP 2002-11-11 00:00:00 Completed [facility] Hep B, Adol or Pedi Dosage 2002-11-11 00:00:00 Completed [facility] DTaP, Unspecified Formulation 2002-11-11 00:00:00 Completed [facility] HIB 4 Dose Schedule 2002-11-11 00:00:00 Completed [facility] IPV 2002-11-11 00:00:00 Completed [facility] Polio (IPV/OPV) 2002-11-11 00:00:00 Completed [facility] MMR 2002-11-11 00:00:00 Completed [facility] DTaP, Unspecified Formulation 2002-11-11 00:00:00 Completed [facility] Varicella (varivax)(chicken pox) 2002-11-11 00:00:00 Completed [facility] IPV 2002-11-11 00:00:00 Completed [facility] DTAP 2002-11-11 00:00:00 Completed [facility] HIB 4 Dose Schedule 2002-11-11 00:00:00 Completed [facility] Hep B, Adol or Pedi Dosage 2002-11-11 00:00:00 Completed [facility] MMR 2002-11-11 00:00:00 Completed [facility] Polio (IPV/OPV) 2002-11-11 00:00:00 Completed [facility] Varicella (varivax)(chicken pox) 2002-11-11 00:00:00 Completed [facility] DTAP 2002-11-11 00:00:00 Completed [facility] Hep B, Adol or Pedi Dosage 2002-11-11 00:00:00 Completed [facility] HIB 4 Dose Schedule 2002-11-11 00:00:00 Completed [facility] Polio (IPV/OPV) 2002-11-11 00:00:00 Completed [facility] MMR 2002-11-11 00:00:00 Completed [facility] Varicella (varivax)(chicken pox) 2002-11-11 00:00:00 Completed [facility] DTAP 2002-11-11 00:00:00 Completed [facility] HIB 4 Dose Schedule 2002-11-11 00:00:00 Completed [facility] Hep B, Adol or Pedi Dosage 2002-11-11 00:00:00 Completed [facility] MMR 2002-11-11 00:00:00 Completed [facility] Polio (IPV/OPV) 2002-11-11 00:00:00 Completed [facility] Varicella (varivax)(chicken pox) 2002-11-11 00:00:00 Completed [facility] DTAP 2002-11-11 00:00:00 Completed [facility] Hep B, Adol or Pedi Dosage 2002-11-11 00:00:00 Completed [facility] HIB 4 Dose Schedule 2002-11-11 00:00:00 Completed [facility] Polio (IPV/OPV) 2002-11-11 00:00:00 Completed [facility] MMR 2002-11-11 00:00:00 Completed [facility] Varicella (varivax)(chicken pox) 2002-11-11 00:00:00 Completed [facility] DTAP 2002-11-11 00:00:00 Completed [facility] HIB 4 Dose Schedule 2002-11-11 00:00:00 Completed [facility] Hep B, Adol or Pedi Dosage 2002-11-11 00:00:00 Completed [facility] MMR 2002-11-11 00:00:00 Completed [facility] Polio (IPV/OPV) 2002-11-11 00:00:00 Completed [facility] Varicella (varivax)(chicken pox) 2002-11-11 00:00:00 Completed [facility] DTAP 2002-11-11 00:00:00 Completed [facility] Hep B, Adol or Pedi Dosage 2002-11-11 00:00:00 Completed [facility] HIB 4 Dose Schedule 2002-11-11 00:00:00 Completed [facility] Polio (IPV/OPV) 2002-11-11 00:00:00 Completed [facility] MMR 2002-11-11 00:00:00 Completed [facility] Varicella (varivax)(chicken pox) 2002-11-11 00:00:00 Completed [facility] DTAP 2002-11-11 00:00:00 Completed [facility] HIB 4 Dose Schedule 2002-11-11 00:00:00 Completed [facility] Hep B, Adol or Pedi Dosage 2002-11-11 00:00:00 Completed [facility] MMR 2002-11-11 00:00:00 Completed [facility] Polio (IPV/OPV) 2002-11-11 00:00:00 Completed [facility] Varicella (varivax)(chicken pox) 2002-11-11 00:00:00 Completed [facility] DTAP 2002-11-11 00:00:00 Completed [facility] Hep B, Adol or Pedi Dosage 2002-11-11 00:00:00 Completed [facility] HIB 4 Dose Schedule 2002-11-11 00:00:00 Completed [facility] Polio (IPV/OPV) 2002-11-11 00:00:00 Completed [facility] MMR 2002-11-11 00:00:00 Completed [facility] Varicella (varivax)(chicken pox) 2002-11-11 00:00:00 Completed [facility] DTAP 2002-11-11 00:00:00 Completed [facility] DTAP 2002-11-11 00:00:00 Completed [facility] HIB 4 Dose Schedule 2002-11-11 00:00:00 Completed [facility] HIB 4 Dose Schedule 2002-11-11 00:00:00 Completed [facility] Hep B, Adol or Pedi Dosage 2002-11-11 00:00:00 Completed [facility] MMR 2002-11-11 00:00:00 Completed [facility] Polio (IPV/OPV) 2002-11-11 00:00:00 Completed [facility] Varicella (varivax)(chicken pox) 2002-11-11 00:00:00 Completed [facility] DTAP 2002-11-11 00:00:00 Completed [facility] Hep B, Adol or Pedi Dosage 2002-11-11 00:00:00 Completed [facility] HIB 4 Dose Schedule 2002-11-11 00:00:00 Completed [facility] Polio (IPV/OPV) 2002-11-11 00:00:00 Completed [facility] MMR 2002-11-11 00:00:00 Completed [facility] Hep B, Adol or Pedi Dosage 2002-11-11 00:00:00 Completed [facility] Varicella (varivax)(chicken pox) 2002-11-11 00:00:00 Completed [facility] MMR 2002-11-11 00:00:00 Completed [facility] DTAP 2002-11-11 00:00:00 Completed [facility] HIB 4 Dose Schedule 2002-11-11 00:00:00 Completed [facility] Hep B, Adol or Pedi Dosage 2002-11-11 00:00:00 Completed [facility] MMR 2002-11-11 00:00:00 Completed [facility] Polio (IPV/OPV) 2002-11-11 00:00:00 Completed [facility] Varicella (varivax)(chicken pox) 2002-11-11 00:00:00 Completed [facility] Polio (IPV/OPV) 2002-11-11 00:00:00 Completed [facility] DTAP 2002-11-11 00:00:00 Completed [facility] Hep B, Adol or Pedi Dosage 2002-11-11 00:00:00 Completed [facility] HIB 4 Dose Schedule 2002-11-11 00:00:00 Completed [facility] Polio (IPV/OPV) 2002-11-11 00:00:00 Completed [facility] MMR 2002-11-11 00:00:00 Completed [facility] Varicella (varivax)(chicken pox) 2002-11-11 00:00:00 Completed [facility] Varicella (varivax)(chicken pox) 2002-11-11 00:00:00 Completed [facility] DTAP 2002-11-11 00:00:00 Completed [facility] DTAP 2002-11-11 00:00:00 Completed [facility] HIB 4 Dose Schedule 2002-11-11 00:00:00 Completed [facility] Hep B, Adol or Pedi Dosage 2002-11-11 00:00:00 Completed [facility] MMR 2002-11-11 00:00:00 Completed [facility] Polio (IPV/OPV) 2002-11-11 00:00:00 Completed [facility] Varicella (varivax)(chicken pox) 2002-11-11 00:00:00 Completed [facility] DTAP 2002-11-11 00:00:00 Completed [facility] Hep B, Adol or Pedi Dosage 2002-11-11 00:00:00 Completed [facility] HIB 4 Dose Schedule 2002-11-11 00:00:00 Completed [facility] Hep B, Adol or Pedi Dosage 2002-11-11 00:00:00 Completed [facility] Polio (IPV/OPV) 2002-11-11 00:00:00 Completed [facility] MMR 2002-11-11 00:00:00 Completed [facility] Varicella (varivax)(chicken pox) 2002-11-11 00:00:00 Completed [facility] HIB 4 Dose Schedule 2002-11-11 00:00:00 Completed [facility] DTAP 2002-11-11 00:00:00 Completed [facility] HIB 4 Dose Schedule 2002-11-11 00:00:00 Completed [facility] Hep B, Adol or Pedi Dosage 2002-11-11 00:00:00 Completed [facility] MMR 2002-11-11 00:00:00 Completed [facility] Polio (IPV/OPV) 2002-11-11 00:00:00 Completed [facility] Varicella (varivax)(chicken pox) 2002-11-11 00:00:00 Completed [facility] Polio (IPV/OPV) 2002-11-11 00:00:00 Completed [facility] DTAP 2002-11-11 00:00:00 Completed [facility] Hep B, Adol or Pedi Dosage 2002-11-11 00:00:00 Completed [facility] HIB 4 Dose Schedule 2002-11-11 00:00:00 Completed [facility] Polio (IPV/OPV) 2002-11-11 00:00:00 Completed [facility] MMR 2002-11-11 00:00:00 Completed [facility] Varicella (varivax)(chicken pox) 2002-11-11 00:00:00 Completed [facility] MMR 2002-11-11 00:00:00 Completed [facility] Varicella (varivax)(chicken pox) 2002-11-11 00:00:00 Completed [facility] DTAP 2002-11-11 00:00:00 Completed [facility] HIB 4 Dose Schedule 2002-11-11 00:00:00 Completed [facility] Hep B, Adol or Pedi Dosage 2002-11-11 00:00:00 Completed [facility] MMR 2002-11-11 00:00:00 Completed [facility] Polio (IPV/OPV) 2002-11-11 00:00:00 Completed [facility] Varicella (varivax)(chicken pox) 2002-11-11 00:00:00 Completed [facility] DTAP 2002-11-11 00:00:00 Completed [facility] Hep B, Adol or Pedi Dosage 2002-11-11 00:00:00 Completed [facility] HIB 4 Dose Schedule 2002-11-11 00:00:00 Completed [facility] Polio (IPV/OPV) 2002-11-11 00:00:00 Completed [facility] MMR 2002-11-11 00:00:00 Completed [facility] Varicella (varivax)(chicken pox) 2002-11-11 00:00:00 Completed [facility] DTAP 2002-11-11 00:00:00 Completed [facility] HIB 4 Dose Schedule 2002-11-11 00:00:00 Completed [facility] Hep B, Adol or Pedi Dosage 2002-11-11 00:00:00 Completed [facility] MMR 2002-11-11 00:00:00 Completed [facility] Polio (IPV/OPV) 2002-11-11 00:00:00 Completed [facility] Varicella (varivax)(chicken pox) 2002-11-11 00:00:00 Completed [facility] DTAP 2002-11-11 00:00:00 Completed [facility] Hep B, Adol or Pedi Dosage 2002-11-11 00:00:00 Completed [facility] HIB 4 Dose Schedule 2002-11-11 00:00:00 Completed [facility] Polio (IPV/OPV) 2002-11-11 00:00:00 Completed [facility] MMR 2002-11-11 00:00:00 Completed [facility] Varicella (varivax)(chicken pox) 2002-11-11 00:00:00 Completed [facility] DTAP 2002-11-11 00:00:00 Completed [facility] HIB 4 Dose Schedule 2002-11-11 00:00:00 Completed [facility] Hep B, Adol or Pedi Dosage 2002-11-11 00:00:00 Completed [facility] MMR 2002-11-11 00:00:00 Completed [facility] Polio (IPV/OPV) 2002-11-11 00:00:00 Completed [facility] Varicella (varivax)(chicken pox) 2002-11-11 00:00:00 Completed [facility] DTAP 2002-11-11 00:00:00 Completed [facility] Hep B, Adol or Pedi Dosage 2002-11-11 00:00:00 Completed [facility] HIB 4 Dose Schedule 2002-11-11 00:00:00 Completed [facility] Polio (IPV/OPV) 2002-11-11 00:00:00 Completed [facility] MMR 2002-11-11 00:00:00 Completed [facility] Varicella (varivax)(chicken pox) 2002-11-11 00:00:00 Completed [facility] DTaP, Unspecified Formulation 2002-11-11 00:00:00 Completed [facility] IPV 2002-11-11 00:00:00 Completed [facility] DTAP 2002-11-11 00:00:00 Completed [facility] HIB 4 Dose Schedule 2002-11-11 00:00:00 Completed [facility] DTaP, Unspecified Formulation 2002-11-11 00:00:00 Completed [facility] IPV 2002-11-11 00:00:00 Completed [facility] Hep B, Adol or Pedi Dosage 2002-11-11 00:00:00 Completed [facility] MMR 2002-11-11 00:00:00 Completed [facility] Polio (IPV/OPV) 2002-11-11 00:00:00 Completed [facility] DTaP, Unspecified Formulation 2002-11-11 00:00:00 Completed [facility] Varicella (varivax)(chicken pox) 2002-11-11 00:00:00 Completed [facility] IPV 2002-11-11 00:00:00 Completed [facility] DTAP 2002-11-11 00:00:00 Completed [facility] Hep B, Adol or Pedi Dosage 2002-11-11 00:00:00 Completed [facility] DTaP, Unspecified Formulation 2002-11-11 00:00:00 Completed [facility] HIB 4 Dose Schedule 2002-11-11 00:00:00 Completed [facility] IPV 2002-11-11 00:00:00 Completed [facility] Polio (IPV/OPV) 2002-11-11 00:00:00 Completed [facility] MMR 2002-11-11 00:00:00 Completed [facility] DTaP, Unspecified Formulation 2002-11-11 00:00:00 Completed [facility] Varicella (varivax)(chicken pox) 2002-11-11 00:00:00 Completed [facility] IPV 2002-11-11 00:00:00 Completed [facility] DTaP, Unspecified Formulation 2002-11-11 00:00:00 Completed [facility] IPV 2002-11-11 00:00:00 Completed [facility] DTaP, Unspecified Formulation 2002-11-11 00:00:00 Completed [facility] IPV 2002-11-11 00:00:00 Completed [facility] DTAP 2002-11-11 00:00:00 Completed [facility] HIB 4 Dose Schedule 2002-11-11 00:00:00 Completed [facility] DTaP, Unspecified Formulation 2002-11-11 00:00:00 Completed [facility] Hep B, Adol or Pedi Dosage 2002-11-11 00:00:00 Completed [facility] IPV 2002-11-11 00:00:00 Completed [facility] MMR 2002-11-11 00:00:00 Completed [facility] Polio (IPV/OPV) 2002-11-11 00:00:00 Completed [facility] DTaP, Unspecified Formulation 2002-11-11 00:00:00 Completed [facility] Varicella (varivax)(chicken pox) 2002-11-11 00:00:00 Completed [facility] IPV 2002-11-11 00:00:00 Completed [facility] DTAP 2002-11-11 00:00:00 Completed [facility] Hep B, Adol or Pedi Dosage 2002-11-11 00:00:00 Completed [facility] DTaP, Unspecified Formulation 2002-11-11 00:00:00 Completed [facility] HIB 4 Dose Schedule 2002-11-11 00:00:00 Completed [facility] IPV 2002-11-11 00:00:00 Completed [facility] Polio (IPV/OPV) 2002-11-11 00:00:00 Completed [facility] MMR 2002-11-11 00:00:00 Completed [facility] Varicella (varivax)(chicken pox) 2002-11-11 00:00:00 Completed [facility] DTaP, Unspecified Formulation 2002-11-11 00:00:00 Completed [facility] IPV 2002-11-11 00:00:00 Completed [facility] DTaP, Unspecified Formulation 2002-11-11 00:00:00 Completed [facility] IPV 2002-11-11 00:00:00 Completed [facility] DTaP, Unspecified Formulation 2002-11-11 00:00:00 Completed [facility] DTAP 2002-11-11 00:00:00 Completed [facility] IPV 2002-11-11 00:00:00 Completed [facility] MMR MMR 2002-11-11 00:00:00 Completed [facility] IPV IPV 2002-11-11 00:00:00 Completed [facility] varicella varicella 2002-11-11 00:00:00 Completed [facility] DTaP, unspecified formul DTaP, unspecified formul 2002-11-11 00:00:00 Completed [facility] Hep B, adolescent or ped Hep B, adolescent or ped 2002-11-11 00:00:00 Completed [facility] Hib (PRP-T) Hib (PRP-T) 2002-11-11 00:00:00 Completed [facility] Poliovirus, Live, Oral, Trivalent 1999-05-14 00:00:00 Completed [facility] DTaP, Unspecified Formulation 1999-05-14 00:00:00 Completed [facility] HIB 4 Dose Schedule 1999-05-14 00:00:00 Completed [facility] Poliovirus, Live, Oral, Trivalent 1999-05-14 00:00:00 Completed [facility] DTaP, Unspecified Formulation 1999-05-14 00:00:00 Completed [facility] HIB 4 Dose Schedule 1999-05-14 00:00:00 Completed [facility] Poliovirus, Live, Oral, Trivalent 1999-05-14 00:00:00 Completed [facility] DTaP, Unspecified Formulation 1999-05-14 00:00:00 Completed [facility] HIB 4 Dose Schedule 1999-05-14 00:00:00 Completed [facility] Poliovirus, Live, Oral, Trivalent 1999-05-14 00:00:00 Completed [facility] DTaP, Unspecified Formulation 1999-05-14 00:00:00 Completed [facility] HIB 4 Dose Schedule 1999-05-14 00:00:00 Completed [facility] Poliovirus, Live, Oral, Trivalent 1999-05-14 00:00:00 Completed [facility] DTaP, Unspecified Formulation 1999-05-14 00:00:00 Completed [facility] HIB 4 Dose Schedule 1999-05-14 00:00:00 Completed [facility] Poliovirus, Live, Oral, Trivalent 1999-05-14 00:00:00 Completed [facility] DTaP, Unspecified Formulation 1999-05-14 00:00:00 Completed [facility] HIB 4 Dose Schedule 1999-05-14 00:00:00 Completed [facility] Poliovirus, Live, Oral, Trivalent 1999-05-14 00:00:00 Completed [facility] DTaP, Unspecified Formulation 1999-05-14 00:00:00 Completed [facility] HIB 4 Dose Schedule 1999-05-14 00:00:00 Completed [facility] Poliovirus, Live, Oral, Trivalent 1999-05-14 00:00:00 Completed [facility] DTaP, Unspecified Formulation 1999-05-14 00:00:00 Completed [facility] HIB 4 Dose Schedule 1999-05-14 00:00:00 Completed [facility] Poliovirus, Live, Oral, Trivalent 1999-05-14 00:00:00 Completed [facility] DTaP, Unspecified Formulation 1999-05-14 00:00:00 Completed [facility] HIB 4 Dose Schedule 1999-05-14 00:00:00 Completed [facility] Poliovirus, Live, Oral, Trivalent 1999-05-14 00:00:00 Completed [facility] DTaP, Unspecified Formulation 1999-05-14 00:00:00 Completed [facility] HIB 4 Dose Schedule 1999-05-14 00:00:00 Completed [facility] Poliovirus, Live, Oral, Trivalent 1999-05-14 00:00:00 Completed [facility] DTaP, Unspecified Formulation 1999-05-14 00:00:00 Completed [facility] HIB 4 Dose Schedule 1999-05-14 00:00:00 Completed [facility] Poliovirus, Live, Oral, Trivalent 1999-05-14 00:00:00 Completed [facility] DTaP, Unspecified Formulation 1999-05-14 00:00:00 Completed [facility] HIB 4 Dose Schedule 1999-05-14 00:00:00 Completed [facility] Poliovirus, Live, Oral, Trivalent 1999-05-14 00:00:00 Completed [facility] DTaP, Unspecified Formulation 1999-05-14 00:00:00 Completed [facility] HIB 4 Dose Schedule 1999-05-14 00:00:00 Completed [facility] Poliovirus, Live, Oral, Trivalent 1999-05-14 00:00:00 Completed [facility] DTaP, Unspecified Formulation 1999-05-14 00:00:00 Completed [facility] HIB 4 Dose Schedule 1999-05-14 00:00:00 Completed [facility] Poliovirus, Live, Oral, Trivalent 1999-05-14 00:00:00 Completed [facility] DTaP, Unspecified Formulation 1999-05-14 00:00:00 Completed [facility] HIB 4 Dose Schedule 1999-05-14 00:00:00 Completed [facility] Poliovirus, Live, Oral, Trivalent 1999-05-14 00:00:00 Completed [facility] DTaP, Unspecified Formulation 1999-05-14 00:00:00 Completed [facility] HIB 4 Dose Schedule 1999-05-14 00:00:00 Completed [facility] Poliovirus, Live, Oral, Trivalent 1999-05-14 00:00:00 Completed [facility] DTaP, Unspecified Formulation 1999-05-14 00:00:00 Completed [facility] HIB 4 Dose Schedule 1999-05-14 00:00:00 Completed [facility] Poliovirus, Live, Oral, Trivalent 1999-05-14 00:00:00 Completed [facility] DTaP, Unspecified Formulation 1999-05-14 00:00:00 Completed [facility] HIB 4 Dose Schedule 1999-05-14 00:00:00 Completed [facility] Poliovirus, Live, Oral, Trivalent 1999-05-14 00:00:00 Completed [facility] DTaP, Unspecified Formulation 1999-05-14 00:00:00 Completed [facility] HIB 4 Dose Schedule 1999-05-14 00:00:00 Completed [facility] Poliovirus, Live, Oral, Trivalent 1999-05-14 00:00:00 Completed [facility] DTaP, Unspecified Formulation 1999-05-14 00:00:00 Completed [facility] HIB 4 Dose Schedule 1999-05-14 00:00:00 Completed [facility] Poliovirus, Live, Oral, Trivalent 1999-05-14 00:00:00 Completed [facility] DTaP, Unspecified Formulation 1999-05-14 00:00:00 Completed [facility] HIB 4 Dose Schedule 1999-05-14 00:00:00 Completed [facility] OPV OPV 1999-05-14 00:00:00 Completed [facility] DTaP, unspecified formul DTaP, unspecified formul 1999-05-14 00:00:00 Completed [facility] Hib (PRP-T) Hib (PRP-T) 1999-05-14 00:00:00 Completed [facility] Poliovirus, Live, Oral, Trivalent 1999-01-26 00:00:00 Completed [facility] DTaP, Unspecified Formulation 1999-01-26 00:00:00 Completed [facility] Hep B, Adol or Pedi Dosage 1999-01-26 00:00:00 Completed [facility] HIB 4 Dose Schedule 1999-01-26 00:00:00 Completed [facility] Poliovirus, Live, Oral, Trivalent 1999-01-26 00:00:00 Completed [facility] DTaP, Unspecified Formulation 1999-01-26 00:00:00 Completed [facility] Hep B, Adol or Pedi Dosage 1999-01-26 00:00:00 Completed [facility] HIB 4 Dose Schedule 1999-01-26 00:00:00 Completed [facility] Poliovirus, Live, Oral, Trivalent 1999-01-26 00:00:00 Completed [facility] DTaP, Unspecified Formulation 1999-01-26 00:00:00 Completed [facility] Hep B, Adol or Pedi Dosage 1999-01-26 00:00:00 Completed [facility] HIB 4 Dose Schedule 1999-01-26 00:00:00 Completed [facility] Poliovirus, Live, Oral, Trivalent 1999-01-26 00:00:00 Completed [facility] DTaP, Unspecified Formulation 1999-01-26 00:00:00 Completed [facility] Hep B, Adol or Pedi Dosage 1999-01-26 00:00:00 Completed [facility] HIB 4 Dose Schedule 1999-01-26 00:00:00 Completed [facility] Poliovirus, Live, Oral, Trivalent 1999-01-26 00:00:00 Completed [facility] DTaP, Unspecified Formulation 1999-01-26 00:00:00 Completed [facility] Hep B, Adol or Pedi Dosage 1999-01-26 00:00:00 Completed [facility] HIB 4 Dose Schedule 1999-01-26 00:00:00 Completed [facility] Poliovirus, Live, Oral, Trivalent 1999-01-26 00:00:00 Completed [facility] DTaP, Unspecified Formulation 1999-01-26 00:00:00 Completed [facility] Hep B, Adol or Pedi Dosage 1999-01-26 00:00:00 Completed [facility] HIB 4 Dose Schedule 1999-01-26 00:00:00 Completed [facility] Poliovirus, Live, Oral, Trivalent 1999-01-26 00:00:00 Completed [facility] DTaP, Unspecified Formulation 1999-01-26 00:00:00 Completed [facility] Hep B, Adol or Pedi Dosage 1999-01-26 00:00:00 Completed [facility] HIB 4 Dose Schedule 1999-01-26 00:00:00 Completed [facility] Poliovirus, Live, Oral, Trivalent 1999-01-26 00:00:00 Completed [facility] DTaP, Unspecified Formulation 1999-01-26 00:00:00 Completed [facility] Hep B, Adol or Pedi Dosage 1999-01-26 00:00:00 Completed [facility] HIB 4 Dose Schedule 1999-01-26 00:00:00 Completed [facility] Poliovirus, Live, Oral, Trivalent 1999-01-26 00:00:00 Completed [facility] DTaP, Unspecified Formulation 1999-01-26 00:00:00 Completed [facility] Hep B, Adol or Pedi Dosage 1999-01-26 00:00:00 Completed [facility] HIB 4 Dose Schedule 1999-01-26 00:00:00 Completed [facility] Poliovirus, Live, Oral, Trivalent 1999-01-26 00:00:00 Completed [facility] DTaP, Unspecified Formulation 1999-01-26 00:00:00 Completed [facility] Hep B, Adol or Pedi Dosage 1999-01-26 00:00:00 Completed [facility] HIB 4 Dose Schedule 1999-01-26 00:00:00 Completed [facility] Poliovirus, Live, Oral, Trivalent 1999-01-26 00:00:00 Completed [facility] DTaP, Unspecified Formulation 1999-01-26 00:00:00 Completed [facility] Hep B, Adol or Pedi Dosage 1999-01-26 00:00:00 Completed [facility] HIB 4 Dose Schedule 1999-01-26 00:00:00 Completed [facility] Poliovirus, Live, Oral, Trivalent 1999-01-26 00:00:00 Completed [facility] DTaP, Unspecified Formulation 1999-01-26 00:00:00 Completed [facility] Hep B, Adol or Pedi Dosage 1999-01-26 00:00:00 Completed [facility] HIB 4 Dose Schedule 1999-01-26 00:00:00 Completed [facility] Poliovirus, Live, Oral, Trivalent 1999-01-26 00:00:00 Completed [facility] DTaP, Unspecified Formulation 1999-01-26 00:00:00 Completed [facility] Hep B, Adol or Pedi Dosage 1999-01-26 00:00:00 Completed [facility] HIB 4 Dose Schedule 1999-01-26 00:00:00 Completed [facility] Poliovirus, Live, Oral, Trivalent 1999-01-26 00:00:00 Completed [facility] DTaP, Unspecified Formulation 1999-01-26 00:00:00 Completed [facility] Hep B, Adol or Pedi Dosage 1999-01-26 00:00:00 Completed [facility] HIB 4 Dose Schedule 1999-01-26 00:00:00 Completed [facility] Poliovirus, Live, Oral, Trivalent 1999-01-26 00:00:00 Completed [facility] DTaP, Unspecified Formulation 1999-01-26 00:00:00 Completed [facility] Hep B, Adol or Pedi Dosage 1999-01-26 00:00:00 Completed [facility] HIB 4 Dose Schedule 1999-01-26 00:00:00 Completed [facility] Poliovirus, Live, Oral, Trivalent 1999-01-26 00:00:00 Completed [facility] DTaP, Unspecified Formulation 1999-01-26 00:00:00 Completed [facility] Hep B, Adol or Pedi Dosage 1999-01-26 00:00:00 Completed [facility] HIB 4 Dose Schedule 1999-01-26 00:00:00 Completed [facility] Poliovirus, Live, Oral, Trivalent 1999-01-26 00:00:00 Completed [facility] DTaP, Unspecified Formulation 1999-01-26 00:00:00 Completed [facility] Hep B, Adol or Pedi Dosage 1999-01-26 00:00:00 Completed [facility] HIB 4 Dose Schedule 1999-01-26 00:00:00 Completed [facility] Poliovirus, Live, Oral, Trivalent 1999-01-26 00:00:00 Completed [facility] DTaP, Unspecified Formulation 1999-01-26 00:00:00 Completed [facility] Hep B, Adol or Pedi Dosage 1999-01-26 00:00:00 Completed [facility] HIB 4 Dose Schedule 1999-01-26 00:00:00 Completed [facility] Poliovirus, Live, Oral, Trivalent 1999-01-26 00:00:00 Completed [facility] DTaP, Unspecified Formulation 1999-01-26 00:00:00 Completed [facility] Hep B, Adol or Pedi Dosage 1999-01-26 00:00:00 Completed [facility] HIB 4 Dose Schedule 1999-01-26 00:00:00 Completed [facility] Poliovirus, Live, Oral, Trivalent 1999-01-26 00:00:00 Completed [facility] DTaP, Unspecified Formulation 1999-01-26 00:00:00 Completed [facility] Hep B, Adol or Pedi Dosage 1999-01-26 00:00:00 Completed [facility] HIB 4 Dose Schedule 1999-01-26 00:00:00 Completed [facility] Poliovirus, Live, Oral, Trivalent 1999-01-26 00:00:00 Completed [facility] DTaP, Unspecified Formulation 1999-01-26 00:00:00 Completed [facility] Hep B, Adol or Pedi Dosage 1999-01-26 00:00:00 Completed [facility] HIB 4 Dose Schedule 1999-01-26 00:00:00 Completed [facility] OPV OPV 1999-01-26 00:00:00 [facility] DTaP, unspecified formul DTaP, unspecified formul 1999-01-26 00:00:00 Completed [facility] Hep B, adolescent or ped Hep B, adolescent or ped 1999-01-26 00:00:00 Completed [facility] Hib (PRP-T) Hib (PRP-T) 1999-01-26 00:00:00 Completed [facility] Hep B, Adol or Pedi Dosage 1998 00:00:00 Completed [facility] Hep B, Adol or Pedi Dosage 1998 00:00:00 Completed [facility] Hep B, Adol or Pedi Dosage 1998 00:00:00 Completed [facility] Hep B, Adol or Pedi Dosage 1998 00:00:00 Completed [facility] Hep B, Adol or Pedi Dosage 1998 00:00:00 Completed [facility] Hep B, Adol or Pedi Dosage 1998 00:00:00 Completed [facility] Hep B, Adol or Pedi Dosage 1998 00:00:00 Completed [facility] Hep B, Adol or Pedi Dosage 1998 00:00:00 Completed [facility] Hep B, Adol or Pedi Dosage 1998 00:00:00 Completed [facility] Hep B, Adol or Pedi Dosage 1998 00:00:00 Completed [facility] Hep B, Adol or Pedi Dosage 1998 00:00:00 Completed [facility] Hep B, Adol or Pedi Dosage 1998 00:00:00 Completed [facility] Hep B, Adol or Pedi Dosage 1998 00:00:00 Completed [facility] Hep B, Adol or Pedi Dosage 1998 00:00:00 Completed [facility] Hep B, Adol or Pedi Dosage 1998 00:00:00 Completed [facility] Hep B, Adol or Pedi Dosage 1998 00:00:00 Completed [facility] Hep B, Adol or Pedi Dosage 1998 00:00:00 Completed [facility] Hep B, Adol or Pedi Dosage 1998 00:00:00 Completed [facility] Hep B, Adol or Pedi Dosage 1998 00:00:00 Completed [facility] Hep B, Adol or Pedi Dosage 1998 00:00:00 Completed [facility] Hep B, Adol or Pedi Dosage 1998 00:00:00 Completed [facility] Hep B, adolescent or ped Hep B, adolescent or ped 1998 00:00:00 Completed [facility] HPV Unknown Completed [facility] Meningococcal Polysaccharide (groups A, C, Y and W-135) conjugate vaccine (MCV4P) Unknown Completed [facility] TDAP (ADACEL) VACCINE Unknown Completed [facility] Influenza Virus Vaccine Quad .5 mL IM 6+ MO (FLUZONE/FLULAVAL/FL UARIX) Unknown Completed [facility] TDAP (ADACEL) VACCINE Unknown Completed [facility] TDAP (ADACEL) VACCINE Unknown Completed [facility] Influenza Virus Vaccine Quad .5 mL IM 6+ MO (FLUZONE/FLULAVAL/FL UARIX) Unknown Completed [facility] HPV Unknown Completed [facility] Meningococcal Polysaccharide (groups A, C, Y and W-135) conjugate vaccine (MCV4P) Unknown Completed [facility] Varicella (varivax)(chicken pox) Unknown Completed [facility] SARS-COV-2 COVID-19 VACCINE - (MODERNA) Unknown Completed [facility] SARS-COV-2 COVID-19 VACCINE - (MODERNA) Unknown Completed [facility] DTaP, Unspecified Formulation Unknown Completed [facility] DTaP, Unspecified Formulation Unknown Completed [facility] DTaP, Unspecified Formulation Unknown Completed [facility] DTaP, Unspecified Formulation Unknown Completed [facility] HEPATITIS A Unknown Completed [facility] Hep B, Adol or Pedi Dosage Unknown Completed [facility] Hep B, Adol or Pedi Dosage Unknown Completed [facility] HIB 4 Dose Schedule Unknown Completed [facility] HIB 4 Dose Schedule Unknown Completed [facility] MMR Unknown Completed [facility] IPV Unknown Completed [facility] IPV Unknown Completed [facility] Poliovirus, Live, Oral, Trivalent Unknown Completed [facility] Poliovirus, Live, Oral, Trivalent Unknown Completed [facility] Tetanus/Diptheria Unknown Completed [facility] HPV Unknown Completed [facility] Meningococcal Polysaccharide (groups A, C, Y and W-135) conjugate vaccine (MCV4P) Unknown Completed [facility] TDAP (ADACEL) VACCINE Unknown Completed [facility] Influenza Virus Vaccine Quad .5 mL IM 6+ MO (FLUZONE/FLULAVAL/FL UARIX) Unknown Completed [facility] TDAP (ADACEL) VACCINE Unknown Completed [facility] TDAP (ADACEL) VACCINE Unknown Completed [facility] Influenza Virus Vaccine Quad .5 mL IM 6+ MO (FLUZONE/FLULAVAL/FL UARIX) Unknown Completed [facility] HPV Unknown Completed [facility] Meningococcal Polysaccharide (groups A, C, Y and W-135) conjugate vaccine (MCV4P) Unknown Completed [facility] Varicella (varivax)(chicken pox) Unknown Completed [facility] SARS-COV-2 COVID-19 VACCINE - (MODERNA) Unknown Completed [facility] SARS-COV-2 COVID-19 VACCINE - (MODERNA) Unknown Completed [facility] DTaP, Unspecified Formulation Unknown Completed [facility] DTaP, Unspecified Formulation Unknown Completed [facility] DTaP, Unspecified Formulation Unknown Completed [facility] DTaP, Unspecified Formulation Unknown Completed [facility] HEPATITIS A Unknown Completed [facility] Hep B, Adol or Pedi Dosage Unknown Completed [facility] Hep B, Adol or Pedi Dosage Unknown Completed [facility] HIB 4 Dose Schedule Unknown Completed [facility] HIB 4 Dose Schedule Unknown Completed [facility] MMR Unknown Completed [facility] IPV Unknown Completed [facility] IPV Unknown Completed [facility] Poliovirus, Live, Oral, Trivalent Unknown Completed [facility] Poliovirus, Live, Oral, Trivalent Unknown Completed [facility] Tetanus/Diptheria Unknown Completed [facility] HPV Unknown Completed [facility] Meningococcal Polysaccharide (groups A, C, Y and W-135) conjugate vaccine (MCV4P) Unknown Completed [facility] TDAP (ADACEL) VACCINE Unknown Completed [facility] Influenza Virus Vaccine Quad .5 mL IM 6+ MO (FLUZONE/FLULAVAL/FL UARIX) Unknown Completed [facility] TDAP (ADACEL) VACCINE Unknown Completed [facility] TDAP (ADACEL) VACCINE Unknown Completed [facility] Influenza Virus Vaccine Quad .5 mL IM 6+ MO (FLUZONE/FLULAVAL/FL UARIX) Unknown Completed [facility] HPV Unknown Completed [facility] Meningococcal Polysaccharide (groups A, C, Y and W-135) conjugate vaccine (MCV4P) Unknown Completed [facility] Varicella (varivax)(chicken pox) Unknown Completed [facility] SARS-COV-2 COVID-19 VACCINE - (MODERNA) Unknown Completed [facility] SARS-COV-2 COVID-19 VACCINE - (MODERNA) Unknown Completed [facility] DTaP, Unspecified Formulation Unknown Completed [facility] DTaP, Unspecified Formulation Unknown Completed [facility] DTaP, Unspecified Formulation Unknown Completed [facility] DTaP, Unspecified Formulation Unknown Completed [facility] HEPATITIS A Unknown Completed [facility] Hep B, Adol or Pedi Dosage Unknown Completed [facility] Hep B, Adol or Pedi Dosage Unknown Completed [facility] HIB 4 Dose Schedule Unknown Completed [facility] HIB 4 Dose Schedule Unknown Completed [facility] MMR Unknown Completed [facility] IPV Unknown Completed [facility] IPV Unknown Completed [facility] Poliovirus, Live, Oral, Trivalent Unknown Completed [facility] Poliovirus, Live, Oral, Trivalent Unknown Completed [facility] Tetanus/Diptheria Unknown Completed [facility] HPV Unknown Completed [facility] Meningococcal Polysaccharide (groups A, C, Y and W-135) conjugate vaccine (MCV4P) Unknown Completed [facility] TDAP (ADACEL) VACCINE Unknown Completed [facility] Influenza Virus Vaccine Quad .5 mL IM 6+ MO (FLUZONE/FLULAVAL/FL UARIX) Unknown Completed [facility] TDAP (ADACEL) VACCINE Unknown Completed [facility] TDAP (ADACEL) VACCINE Unknown Completed [facility] Influenza Virus Vaccine Quad .5 mL IM 6+ MO (FLUZONE/FLULAVAL/FL UARIX) Unknown Completed [facility] HPV Unknown Completed [facility] Meningococcal Polysaccharide (groups A, C, Y and W-135) conjugate vaccine (MCV4P) Unknown Completed [facility] Varicella (varivax)(chicken pox) Unknown Completed [facility] SARS-COV-2 COVID-19 VACCINE - (MODERNA) Unknown Completed [facility] SARS-COV-2 COVID-19 VACCINE - (MODERNA) Unknown Completed [facility] DTaP, Unspecified Formulation Unknown Completed [facility] DTaP, Unspecified Formulation Unknown Completed [facility] DTaP, Unspecified Formulation Unknown Completed [facility] DTaP, Unspecified Formulation Unknown Completed [facility] HEPATITIS A Unknown Completed [facility] Hep B, Adol or Pedi Dosage Unknown Completed [facility] Hep B, Adol or Pedi Dosage Unknown Completed [facility] HIB 4 Dose Schedule Unknown Completed [facility] HIB 4 Dose Schedule Unknown Completed [facility] MMR Unknown Completed [facility] IPV Unknown Completed [facility] IPV Unknown Completed [facility] Poliovirus, Live, Oral, Trivalent Unknown Completed [facility] Poliovirus, Live, Oral, Trivalent Unknown Completed [facility] Tetanus/Diptheria Unknown Completed [facility] HPV Unknown Completed [facility] Meningococcal Polysaccharide (groups A, C, Y and W-135) conjugate vaccine (MCV4P) Unknown Completed [facility] TDAP (ADACEL) VACCINE Unknown Completed [facility] Influenza Virus Vaccine Quad .5 mL IM 6+ MO (FLUZONE/FLULAVAL/FL UARIX) Unknown Completed [facility] TDAP (ADACEL) VACCINE Unknown Completed [facility] TDAP (ADACEL) VACCINE Unknown Completed [facility] Influenza Virus Vaccine Quad .5 mL IM 6+ MO (FLUZONE/FLULAVAL/FL UARIX) Unknown Completed [facility] HPV Unknown Completed [facility] Meningococcal Polysaccharide (groups A, C, Y and W-135) conjugate vaccine (MCV4P) Unknown Completed [facility] Varicella (varivax)(chicken pox) Unknown Completed [facility] SARS-COV-2 COVID-19 VACCINE - (MODERNA) Unknown Completed [facility] DTaP, Unspecified Formulation Unknown Completed [facility] DTaP, Unspecified Formulation Unknown Completed [facility] DTaP, Unspecified Formulation Unknown Completed [facility] DTaP, Unspecified Formulation Unknown Completed [facility] HEPATITIS A Unknown Completed [facility] Hep B, Adol or Pedi Dosage Unknown Completed [facility] Hep B, Adol or Pedi Dosage Unknown Completed [facility] HIB 4 Dose Schedule Unknown Completed [facility] HIB 4 Dose Schedule Unknown Completed [facility] MMR Unknown Completed [facility] IPV Unknown Completed [facility] IPV Unknown Completed [facility] Poliovirus, Live, Oral, Trivalent Unknown Completed [facility] Poliovirus, Live, Oral, Trivalent Unknown Completed [facility] Tetanus/Diptheria Unknown Completed Un [facility] HPV Unknown Completed [facility] Meningococcal Polysaccharide (groups A, C, Y and W-135) conjugate vaccine (MCV4P) Unknown Completed [facility] TDAP (ADACEL) VACCINE Unknown Completed [facility] Influenza Virus Vaccine Quad .5 mL IM 6+ MO (FLUZONE/FLULAVAL/FL UARIX) Unknown Completed [facility] TDAP (ADACEL) VACCINE Unknown Completed [facility] TDAP (ADACEL) VACCINE Unknown Completed [facility] Influenza Virus Vaccine Quad .5 mL IM 6+ MO (FLUZONE/FLULAVAL/FL UARIX) Unknown Completed [facility] HPV Unknown Completed [facility] Meningococcal Polysaccharide (groups A, C, Y and W-135) conjugate vaccine (MCV4P) Unknown Completed [facility] Varicella (varivax)(chicken pox) Unknown Completed [facility] SARS-COV-2 COVID-19 VACCINE - (MODERNA) Unknown Completed [facility] SARS-COV-2 COVID-19 VACCINE - (MODERNA) Unknown Completed [facility] DTaP, Unspecified Formulation Unknown Completed [facility] DTaP, Unspecified Formulation Unknown Completed [facility] DTaP, Unspecified Formulation Unknown Completed [facility] DTaP, Unspecified Formulation Unknown Completed [facility] HEPATITIS A Unknown Completed [facility] Hep B, Adol or Pedi Dosage Unknown Completed [facility] Hep B, Adol or Pedi Dosage Unknown Completed [facility] HIB 4 Dose Schedule Unknown Completed [facility] HIB 4 Dose Schedule Unknown Completed [facility] MMR Unknown Completed [facility] IPV Unknown Completed [facility] IPV Unknown Completed [facility] Poliovirus, Live, Oral, Trivalent Unknown Completed [facility] Poliovirus, Live, Oral, Trivalent Unknown Completed [facility]anus[facility]iptheria [facility] Meningococcal Polysaccharide (groups A, C, Y and W-135) conjugate vaccine (MCV4P) Unknown Completed [facility] TDAP (ADACEL) VACCINE Unknown Completed [facility] Influenza Virus Vaccine Quad .5 mL IM 6+ MO (FLUZONE/FLULAVAL/FL UARIX) Unknown Completed [facility] TDAP (ADACEL) VACCINE Unknown Completed [facility] TDAP (ADACEL) VACCINE Unknown Completed [facility] Influenza Virus Vaccine Quad .5 mL IM 6+ MO (FLUZONE/FLULAVAL/FL UARIX) Unknown Completed [facility] HPV Unknown Completed [facility] Meningococcal Polysaccharide (groups A, C, Y and W-135) conjugate vaccine (MCV4P) Unknown Completed [facility] Varicella (varivax)(chicken pox) Unknown Completed [facility] SARS-COV-2 COVID-19 VACCINE - (MODERNA) Unknown Completed [facility] SARS-COV-2 COVID-19 VACCINE - (MODERNA) Unknown Completed [facility] DTaP, Unspecified Formulation Unknown Completed [facility] DTaP, Unspecified Formulation Unknown Completed [facility] DTaP, Unspecified Formulation Unknown Completed [facility] DTaP, Unspecified Formulation Unknown Completed [facility] HEPATITIS A Unknown Completed [facility] Hep B, Adol or Pedi Dosage Unknown Completed [facility] Hep B, Adol or Pedi Dosage Unknown Completed [facility] HIB 4 Dose Schedule Unknown Completed [facility] HIB 4 Dose Schedule Unknown Completed [facility] MMR Unknown Completed [facility] IPV Unknown Completed [facility] IPV Unknown Completed [facility] Poliovirus, Live, Oral, Trivalent Unknown Completed [facility] Poliovirus, Live, Oral, Trivalent Unknown Completed [facility] Tetanus[facility]Diptheria [facility] Meningococcal Polysaccharide (groups A, C, Y and W-135) conjugate vaccine (MCV4P) Unknown Completed [facility] TDAP (ADACEL) VACCINE Unknown Completed [facility] Influenza Virus Vaccine Quad .5 mL IM 6+ MO (FLUZONE/FLULAVAL/FL UARIX) Unknown Completed [facility] TDAP (ADACEL) VACCINE Unknown Completed [facility] TDAP (ADACEL) VACCINE Unknown Completed [facility] Influenza Virus Vaccine Quad .5 mL IM 6+ MO (FLUZONE/FLULAVAL/FL UARIX) Unknown Completed [facility] HPV Unknown Completed [facility] Meningococcal Polysaccharide (groups A, C, Y and W-135) conjugate vaccine (MCV4P) Unknown Completed [facility] Varicella (varivax)(chicken pox) Unknown Completed [facility] SARS-COV-2 COVID-19 VACCINE - (MODERNA) Unknown Completed [facility] SARS-COV-2 COVID-19 VACCINE - (MODERNA) Unknown Completed [facility] DTaP, Unspecified Formulation Unknown Completed [facility] DTaP, Unspecified Formulation Unknown Completed [facility] DTaP, Unspecified Formulation Unknown Completed [facility] DTaP, Unspecified Formulation Unknown Completed [facility] HEPATITIS A Unknown Completed [facility] Hep B, Adol or Pedi Dosage Unknown Completed [facility] Hep B, Adol or Pedi Dosage Unknown Completed [facility] HIB 4 Dose Schedule Unknown Completed [facility] HIB 4 Dose Schedule Unknown Completed [facility] MMR Unknown Completed [facility] IPV Unknown Completed [facility] IPV Unknown Completed [facility] Poliovirus, Live, Oral, Trivalent Unknown Completed [facility] Poliovirus, Live, Oral, Trivalent Unknown Completed [facility] Tetanus/Diptheria Unknown Completed [facility] HPV Unknown Completed [facility] Meningococcal Polysaccharide (groups A, C, Y and W-135) conjugate vaccine (MCV4P) Unknown Completed [facility] TDAP (ADACEL) VACCINE Unknown Completed [facility] Influenza Virus Vaccine Quad .5 mL IM 6+ MO (FLUZONE/FLULAVAL/FL UARIX) Unknown Completed [facility] TDAP (ADACEL) VACCINE Unknown Completed [facility] TDAP (ADACEL) VACCINE Unknown Completed [facility] Influenza Virus Vaccine Quad .5 mL IM 6+ MO (FLUZONE/FLULAVAL/FL UARIX) Unknown Completed [facility] HPV Unknown Completed [facility] Meningococcal Polysaccharide (groups A, C, Y and W-135) conjugate vaccine (MCV4P) Unknown Completed [facility] Varicella (varivax)(chicken pox) Unknown Completed [facility] SARS-COV-2 COVID-19 VACCINE - (MODERNA) Unknown Completed [facility] SARS-COV-2 COVID-19 VACCINE - (MODERNA) Unknown Completed [facility] DTaP, Unspecified Formulation Unknown Completed [facility] DTaP, Unspecified Formulation Unknown Completed [facility] DTaP, Unspecified Formulation Unknown Completed [facility] DTaP, Unspecified Formulation Unknown Completed [facility] HEPATITIS A Unknown Completed [facility] Hep B, Adol or Pedi Dosage Unknown Completed [facility] Hep B, Adol or Pedi Dosage Unknown Completed [facility] HIB 4 Dose Schedule Unknown Completed [facility] HIB 4 Dose Schedule Unknown Completed [facility] MMR Unknown Completed [facility] IPV Unknown Completed [facility] IPV Unknown Completed [facility] Poliovirus, Live, Oral, Trivalent Unknown Completed [facility] Poliovirus, Live, Oral, Trivalent Unknown Completed [facility] Tetanus/Diptheria Unknown Completed [facility] TDAP Unknown Completed [facility] Influenza Virus Vaccine Quad IM, Preserv and ABX Free 6 MO-64 YRS (FLUCELVAX) Unknown Completed [facility] HPV Unknown Completed [facility] Meningococcal Polysaccharide (groups A, C, Y and W-135) conjugate vaccine (MCV4P) Unknown Completed [facility] TDAP (ADACEL) VACCINE Unknown Completed [facility] Influenza Virus Vaccine Quad .5 mL IM 6+ MO (FLUZONE/FLULAVAL/FL UARIX) Unknown Completed [facility] TDAP (ADACEL) VACCINE Unknown Completed [facility] TDAP (ADACEL) VACCINE Unknown Completed [facility] Influenza Virus Vaccine Quad .5 mL IM 6+ MO (FLUZONE/FLULAVAL/FL UARIX) Unknown Completed [facility] HPV Unknown Completed [facility] Meningococcal Polysaccharide (groups A, C, Y and W-135) conjugate vaccine (MCV4P) Unknown Completed [facility] Varicella (varivax)(chicken pox) Unknown Completed [facility] SARS-COV-2 COVID-19 VACCINE - (MODERNA) Unknown Completed [facility] SARS-COV-2 COVID-19 VACCINE - (MODERNA) Unknown Completed [facility] DTaP, Unspecified Formulation Unknown Completed [facility] DTaP, Unspecified Formulation Unknown Completed [facility] DTaP, Unspecified Formulation Unknown Completed [facility] DTaP, Unspecified Formulation Unknown Completed [facility] HEPATITIS A Unknown Completed [facility] Hep B, Adol or Pedi Dosage Unknown Completed [facility] Hep B, Adol or Pedi Dosage Unknown Completed [facility] HIB 4 Dose Schedule Unknown Completed [facility] HIB 4 Dose Schedule Unknown Completed [facility] MMR Unknown Completed [facility] IPV Unknown Completed [facility] IPV Unknown Completed [facility] Poliovirus, Live, Oral, Trivalent Unknown Completed [facility] Poliovirus, Live, Oral, Trivalent Unknown Completed [facility] Tetanus/Diptheria [facility] Influenza Virus Vaccine Quad IM, Preserv and ABX Free 6 MO-64 YRS (FLUCELVAX) Unknown Completed [facility] HPV Unknown Completed [facility] Meningococcal Polysaccharide (groups A, C, Y and W-135) conjugate vaccine (MCV4P) Unknown Completed [facility] TDAP (ADACEL) VACCINE Unknown Completed [facility] Influenza Virus Vaccine Quad .5 mL IM 6+ MO (FLUZONE/FLULAVAL/FL UARIX) Unknown Completed [facility] TDAP (ADACEL) VACCINE Unknown Completed [facility] TDAP (ADACEL) VACCINE Unknown Completed [facility] Influenza Virus Vaccine Quad .5 mL IM 6+ MO (FLUZONE/FLULAVAL/FL UARIX) Unknown Completed [facility] HPV Unknown Completed [facility] Meningococcal Polysaccharide (groups A, C, Y and W-135) conjugate vaccine (MCV4P) Unknown Completed [facility] Varicella (varivax)(chicken pox) Unknown Completed [facility] SARS-COV-2 COVID-19 VACCINE - (MODERNA) Unknown Completed [facility] SARS-COV-2 COVID-19 VACCINE - (MODERNA) Unknown Completed [facility] DTaP, Unspecified Formulation Unknown Completed [facility] DTaP, Unspecified Formulation Unknown Completed [facility] DTaP, Unspecified Formulation Unknown Completed [facility] DTaP, Unspecified Formulation Unknown Completed [facility] HEPATITIS A Unknown Completed [facility] Hep B, Adol or Pedi Dosage Unknown Completed [facility] Hep B, Adol or Pedi Dosage Unknown Completed [facility] HIB 4 Dose Schedule Unknown Completed [facility] HIB 4 Dose Schedule Unknown Completed [facility] MMR Unknown Completed [facility] IPV Unknown Completed [facility] IPV Unknown Completed [facility] Poliovirus, Live, Oral, Trivalent Unknown Completed [facility] Poliovirus, Live, Oral, Trivalent Unknown Completed [facility] Tetanus/Diptheria [facility] Completed [facility] Influenza Virus Vaccine Quad IM, Preserv and ABX Free 6 MO-64 YRS (FLUCELVAX) Unknown Completed [facility] HPV Unknown Completed [facility] Meningococcal Polysaccharide (groups A, C, Y and W-135) conjugate vaccine (MCV4P) Unknown Completed [facility] TDAP (ADACEL) VACCINE Unknown Completed [facility] Influenza Virus Vaccine Quad .5 mL IM 6+ MO (FLUZONE/FLULAVAL/FL UARIX) Unknown Completed [facility] TDAP (ADACEL) VACCINE Unknown Completed [facility] TDAP (ADACEL) VACCINE Unknown Completed [facility] Influenza Virus Vaccine Quad .5 mL IM 6+ MO (FLUZONE/FLULAVAL/FL UARIX) Unknown Completed [facility] HPV Unknown Completed [facility] Meningococcal Polysaccharide (groups A, C, Y and W-135) conjugate vaccine (MCV4P) Unknown Completed [facility] Varicella (varivax)(chicken pox) Unknown Completed [facility] SARS-COV-2 COVID-19 VACCINE - (MODERNA) Unknown Completed [facility] SARS-COV-2 COVID-19 VACCINE - (MODERNA) Unknown Completed [facility] DTaP, Unspecified Formulation Unknown Completed [facility] DTaP, Unspecified Formulation Unknown Completed [facility] DTaP, Unspecified Formulation Unknown Completed [facility] DTaP, Unspecified Formulation Unknown Completed [facility] HEPATITIS A Unknown Completed [facility] Hep B, Adol or Pedi Dosage Unknown Completed [facility] Hep B, Adol or Pedi Dosage Unknown Completed [facility] HIB 4 Dose Schedule Unknown Completed [facility] HIB 4 Dose Schedule Unknown Completed [facility] MMR Unknown Completed [facility] IPV Unknown Completed [facility] IPV Unknown Completed [facility] Poliovirus, Live, Oral, Trivalent Unknown Completed [facility] Poliovirus, Live, Oral, Trivalent Unknown Completed [facility] Tetanus/Diptheria Unknown Completed [facility] TDAP Unknown Completed [facility] Influenza Virus Vaccine Quad IM, Preserv and ABX Free 6 MO-64 YRS (FLUCELVAX) Unknown Completed [facility] HPV Unknown Completed [facility] Meningococcal Polysaccharide (groups A, C, Y and W-135) conjugate vaccine (MCV4P) Unknown Completed [facility] TDAP (ADACEL) VACCINE Unknown Completed [facility] Influenza Virus Vaccine Quad .5 mL IM 6+ MO (FLUZONE/FLULAVAL/FL UARIX) Unknown Completed [facility] TDAP (ADACEL) VACCINE Unknown Completed [facility] TDAP (ADACEL) VACCINE Unknown Completed [facility] Influenza Virus Vaccine Quad .5 mL IM 6+ MO (FLUZONE/FLULAVAL/FL UARIX) Unknown Completed [facility] HPV Unknown Completed [facility] Meningococcal Polysaccharide (groups A, C, Y and W-135) conjugate vaccine (MCV4P) Unknown Completed [facility] Varicella (varivax)(chicken pox) Unknown Completed [facility] SARS-COV-2 COVID-19 VACCINE - (MODERNA) Unknown Completed [facility] SARS-COV-2 COVID-19 VACCINE - (MODERNA) Unknown Completed [facility] DTaP, Unspecified Formulation Unknown Completed [facility] DTaP, Unspecified Formulation Unknown Completed [facility] DTaP, Unspecified Formulation Unknown Completed [facility] DTaP, Unspecified Formulation Unknown Completed [facility] HEPATITIS A Unknown Completed [facility] Hep B, Adol or Pedi Dosage Unknown Completed [facility] Hep B, Adol or Pedi Dosage Unknown Completed [facility] HIB 4 Dose Schedule Unknown Completed [facility] HIB 4 Dose Schedule Unknown Completed [facility] MMR Unknown Completed [facility] IPV Unknown Completed [facility] IPV Unknown Completed [facility] Poliovirus, Live, Oral, Trivalent Unknown Completed [facility] Poliovirus, Live, Oral, Trivalent Unknown Completed [facility] Tetanus/Diptheria [facility] Com[facility] Influenza Virus Vaccine Quad IM, Preserv and ABX Free 6 MO-64 YRS (FLUCELVAX) Unknown Completed [facility] HPV Unknown Completed [facility] Meningococcal Polysaccharide (groups A, C, Y and W-135) conjugate vaccine (MCV4P) Unknown Completed [facility] TDAP (ADACEL) VACCINE Unknown Completed [facility] Influenza Virus Vaccine Quad .5 mL IM 6+ MO (FLUZONE/FLULAVAL/FL UARIX) Unknown Completed [facility] TDAP (ADACEL) VACCINE Unknown Completed [facility] TDAP (ADACEL) VACCINE Unknown Completed [facility] Influenza Virus Vaccine Quad .5 mL IM 6+ MO (FLUZONE/FLULAVAL/FL UARIX) Unknown Completed [facility] HPV Unknown Completed [facility] Meningococcal Polysaccharide (groups A, C, Y and W-135) conjugate vaccine (MCV4P) Unknown Completed [facility] Varicella (varivax)(chicken pox) Unknown Completed [facility] SARS-COV-2 COVID-19 VACCINE - (MODERNA) Unknown Completed [facility] SARS-COV-2 COVID-19 VACCINE - (MODERNA) Unknown Completed [facility] DTaP, Unspecified Formulation Unknown Completed [facility] DTaP, Unspecified Formulation Unknown Completed [facility] DTaP, Unspecified Formulation Unknown Completed [facility] DTaP, Unspecified Formulation Unknown Completed [facility] HEPATITIS A Unknown Completed [facility] Hep B, Adol or Pedi Dosage Unknown Completed [facility] Hep B, Adol or Pedi Dosage Unknown Completed [facility] HIB 4 Dose Schedule Unknown Completed [facility] HIB 4 Dose Schedule Unknown Completed [facility] MMR Unknown Completed [facility] IPV Unknown Completed [facility] IPV Unknown Completed [facility] Poliovirus, Live, Oral, Trivalent Unknown Completed [facility] Poliovirus, Live, Oral, Trivalent Unknown Completed [facility] Tetanus/Diptheria Unknown Completed [facility] TDAP Unknown Completed [facility] Influenza Virus Vaccine Quad IM, Preserv and ABX Free 6 MO-64 YRS (FLUCELVAX) Unknown Completed [facility] HPV Unknown Completed [facility] Meningococcal Polysaccharide (groups A, C, Y and W-135) conjugate vaccine (MCV4P) Unknown Completed [facility] TDAP (ADACEL) VACCINE Unknown Completed [facility] Influenza Virus Vaccine Quad .5 mL IM 6+ MO (FLUZONE/FLULAVAL/FL UARIX) Unknown Completed [facility] TDAP (ADACEL) VACCINE Unknown Completed [facility] TDAP (ADACEL) VACCINE Unknown Completed [facility] Influenza Virus Vaccine Quad .5 mL IM 6+ MO (FLUZONE/FLULAVAL/FL UARIX) Unknown Completed [facility] HPV Unknown Completed [facility] Meningococcal Polysaccharide (groups A, C, Y and W-135) conjugate vaccine (MCV4P) Unknown Completed [facility] Varicella (varivax)(chicken pox) Unknown Completed [facility] SARS-COV-2 COVID-19 VACCINE - (MODERNA) Unknown Completed [facility] SARS-COV-2 COVID-19 VACCINE - (MODERNA) Unknown Completed [facility] DTaP, Unspecified Formulation Unknown Completed [facility] DTaP, Unspecified Formulation Unknown Completed [facility] DTaP, Unspecified Formulation Unknown Completed [facility] DTaP, Unspecified Formulation Unknown Completed [facility] HEPATITIS A Unknown Completed [facility] Hep B, Adol or Pedi Dosage Unknown Completed [facility] Hep B, Adol or Pedi Dosage Unknown Completed [facility] HIB 4 Dose Schedule Unknown Completed [facility] HIB 4 Dose Schedule Unknown Completed [facility] MMR Unknown Completed [facility] IPV Unknown Completed [facility] IPV Unknown Completed [facility] Poliovirus, Live, Oral, Trivalent Unknown Completed [facility] Poliovirus, Live, Oral, Trivalent Unknown Completed [facility] Tetanus/Diptheria Unknown Completed [facility] TDAP Unknown Completed [facility] Influenza Virus Vaccine Quad IM, Preserv and ABX Free 6 MO-64 YRS (FLUCELVAX) Unknown Completed [facility] HPV Unknown Completed [facility] Meningococcal Polysaccharide (groups A, C, Y and W-135) conjugate vaccine (MCV4P) Unknown Completed [facility] TDAP (ADACEL) VACCINE Unknown Completed [facility] Influenza Virus Vaccine Quad .5 mL IM 6+ MO (FLUZONE/FLULAVAL/FL UARIX) Unknown Completed [facility] TDAP (ADACEL) VACCINE Unknown Completed [facility] TDAP (ADACEL) VACCINE Unknown Completed [facility] Influenza Virus Vaccine Quad .5 mL IM 6+ MO (FLUZONE/FLULAVAL/FL UARIX) Unknown Completed [facility] HPV Unknown Completed [facility] Meningococcal Polysaccharide (groups A, C, Y and W-135) conjugate vaccine (MCV4P) Unknown Completed [facility] Varicella (varivax)(chicken pox) Unknown Completed [facility] SARS-COV-2 COVID-19 VACCINE - (MODERNA) Unknown Completed [facility] SARS-COV-2 COVID-19 VACCINE - (MODERNA) Unknown Completed [facility] DTaP, Unspecified Formulation Unknown Completed [facility] DTaP, Unspecified Formulation Unknown Completed [facility] DTaP, Unspecified Formulation Unknown Completed [facility] DTaP, Unspecified Formulation Unknown Completed [facility] HEPATITIS A Unknown Completed [facility] Hep B, Adol or Pedi Dosage Unknown Completed [facility] Hep B, Adol or Pedi Dosage Unknown Completed [facility] HIB 4 Dose Schedule Unknown Completed [facility] HIB 4 Dose Schedule Unknown Completed [facility] MMR Unknown Completed [facility] IPV Unknown Completed [facility] IPV Unknown Completed [facility] Poliovirus, Live, Oral, Trivalent Unknown Completed [facility] Poliovirus, Live, Oral, Trivalent Unknown Completed [facility] Tetanus/Diptheria Unknown Completed [facility] TDAP Unknown Completed [facility] Influenza Virus Vaccine Quad IM, Preserv and ABX Free 6 MO-64 YRS (FLUCELVAX) Unknown Completed [facility] HPV Unknown Completed [facility] Meningococcal Polysaccharide (groups A, C, Y and W-135) conjugate vaccine (MCV4P) Unknown Completed [facility] TDAP (ADACEL) VACCINE Unknown Completed [facility] Influenza Virus Vaccine Quad .5 mL IM 6+ MO (FLUZONE/FLULAVAL/FL UARIX) Unknown Completed [facility] TDAP (ADACEL) VACCINE Unknown Completed [facility] TDAP (ADACEL) VACCINE Unknown Completed [facility] Influenza Virus Vaccine Quad .5 mL IM 6+ MO (FLUZONE/FLULAVAL/FL UARIX) Unknown Completed [facility] HPV Unknown Completed [facility] Meningococcal Polysaccharide (groups A, C, Y and W-135) conjugate vaccine (MCV4P) Unknown Completed [facility] Varicella (varivax)(chicken pox) Unknown Completed [facility] SARS-COV-2 COVID-19 VACCINE - (MODERNA) Unknown Completed [facility] SARS-COV-2 COVID-19 VACCINE - (MODERNA) Unknown Completed [facility] DTaP, Unspecified Formulation Unknown Completed [facility] DTaP, Unspecified Formulation Unknown Completed [facility] DTaP, Unspecified Formulation Unknown Completed [facility] DTaP, Unspecified Formulation Unknown Completed [facility] HEPATITIS A Unknown Completed [facility] Hep B, Adol or Pedi Dosage Unknown Completed [facility] Hep B, Adol or Pedi Dosage Unknown Completed [facility] HIB 4 Dose Schedule Unknown Completed [facility] HIB 4 Dose Schedule Unknown Completed [facility] MMR Unknown Completed [facility] IPV Unknown Completed [facility] IPV Unknown Completed [facility] Poliovirus, Live, Oral, Trivalent Unknown Completed [facility] Poliovirus, Live, Oral, Trivalent Unknown Completed [facility] Tetanus/Diptheria [facility] Com[facility] Influenza Virus Vaccine Quad IM, Preserv and ABX Free 6 MO-64 YRS (FLUCELVAX) Unknown Completed [facility] HPV Unknown Completed [facility] Meningococcal Polysaccharide (groups A, C, Y and W-135) conjugate vaccine (MCV4P) Unknown Completed [facility] TDAP (ADACEL) VACCINE Unknown Completed [facility] Influenza Virus Vaccine Quad .5 mL IM 6+ MO (FLUZONE/FLULAVAL/FL UARIX) Unknown Completed [facility] TDAP (ADACEL) VACCINE Unknown Completed [facility] TDAP (ADACEL) VACCINE Unknown Completed [facility] Influenza Virus Vaccine Quad .5 mL IM 6+ MO (FLUZONE/FLULAVAL/FL UARIX) Unknown Completed [facility] HPV Unknown Completed [facility] Meningococcal Polysaccharide (groups A, C, Y and W-135) conjugate vaccine (MCV4P) Unknown Completed [facility] Varicella (varivax)(chicken pox) Unknown Completed [facility] SARS-COV-2 COVID-19 VACCINE - (MODERNA) Unknown Completed [facility] SARS-COV-2 COVID-19 VACCINE - (MODERNA) Unknown Completed [facility] DTaP, Unspecified Formulation Unknown Completed [facility] DTaP, Unspecified Formulation Unknown Completed [facility] DTaP, Unspecified Formulation Unknown Completed [facility] DTaP, Unspecified Formulation Unknown Completed [facility] HEPATITIS A Unknown Completed [facility] Hep B, Adol or Pedi Dosage Unknown Completed [facility] Hep B, Adol or Pedi Dosage Unknown Completed [facility] HIB 4 Dose Schedule Unknown Completed [facility] HIB 4 Dose Schedule Unknown Completed [facility] MMR Unknown Completed [facility] IPV Unknown Completed [facility] IPV Unknown Completed [facility] Poliovirus, Live, Oral, Trivalent Unknown Completed [facility] Poliovirus, Live, Oral, Trivalent Unknown Completed [facility] Tetanus/Diptheria Unknown Completed [facility] TDAP Unknown Completed [facility] Influenza Virus Vaccine Quad IM, Preserv and ABX Free 6 MO-64 YRS (FLUCELVAX) Unknown Completed [facility] HPV Unknown Completed [facility] Meningococcal Polysaccharide (groups A, C, Y and W-135) conjugate vaccine (MCV4P) Unknown Completed [facility] TDAP (ADACEL) VACCINE Unknown Completed [facility] Influenza Virus Vaccine Quad .5 mL IM 6+ MO (FLUZONE/FLULAVAL/FL UARIX) Unknown Completed [facility] TDAP (ADACEL) VACCINE Unknown Completed [facility] TDAP (ADACEL) VACCINE Unknown Completed [facility] Influenza Virus Vaccine Quad .5 mL IM 6+ MO (FLUZONE/FLULAVAL/FL UARIX) Unknown Completed [facility] HPV Unknown Completed [facility] Meningococcal Polysaccharide (groups A, C, Y and W-135) conjugate vaccine (MCV4P) Unknown Completed [facility] Varicella (varivax)(chicken pox) Unknown Completed [facility] SARS-COV-2 COVID-19 VACCINE - (MODERNA) Unknown Completed [facility] SARS-COV-2 COVID-19 VACCINE - (MODERNA) Unknown Completed [facility] DTaP, Unspecified Formulation Unknown Completed [facility] DTaP, Unspecified Formulation Unknown Completed [facility] DTaP, Unspecified Formulation Unknown Completed [facility] DTaP, Unspecified Formulation Unknown Completed [facility] HEPATITIS A Unknown Completed [facility] Hep B, Adol or Pedi Dosage Unknown Completed [facility] Hep B, Adol or Pedi Dosage Unknown Completed [facility] HIB 4 Dose Schedule Unknown Completed [facility] HIB 4 Dose Schedule Unknown Completed [facility] MMR Unknown Completed [facility] IPV Unknown Completed [facility] IPV Unknown Completed [facility] Poliovirus, Live, Oral, Trivalent Unknown Completed [facility] Poliovirus, Live, Oral, Trivalent Unknown Completed [facility] Tetanus/Diptheria Unknown Completed [facility] TDAP Unknown Completed [facility] Influenza Virus Vaccine Quad IM, Preserv and ABX Free 6 MO-64 YRS (FLUCELVAX) Unknown Completed [facility] HPV Unknown Completed [facility] Meningococcal Polysaccharide (groups A, C, Y and W-135) conjugate vaccine (MCV4P) Unknown Completed [facility] TDAP (ADACEL) VACCINE Unknown Completed [facility] Influenza Virus Vaccine Quad .5 mL IM 6+ MO (FLUZONE/FLULAVAL/FL UARIX) Unknown Completed [facility] TDAP (ADACEL) VACCINE Unknown Completed [facility] TDAP (ADACEL) VACCINE Unknown Completed [facility] Influenza Virus Vaccine Quad .5 mL IM 6+ MO (FLUZONE/FLULAVAL/FL UARIX) Unknown Completed [facility] HPV Unknown Completed [facility] Meningococcal Polysaccharide (groups A, C, Y and W-135) conjugate vaccine (MCV4P) Unknown Completed [facility] Varicella (varivax)(chicken pox) Unknown Completed [facility] SARS-COV-2 COVID-19 VACCINE - (MODERNA) Unknown Completed [facility] SARS-COV-2 COVID-19 VACCINE - (MODERNA) Unknown Completed [facility] DTaP, Unspecified Formulation Unknown Completed [facility] DTaP, Unspecified Formulation Unknown Completed [facility] DTaP, Unspecified Formulation Unknown Completed [facility] DTaP, Unspecified Formulation Unknown Completed [facility] HEPATITIS A Unknown Completed [facility] Hep B, Adol or Pedi Dosage Unknown Completed [facility] Hep B, Adol or Pedi Dosage Unknown Completed [facility] HIB 4 Dose Schedule Unknown Completed [facility] HIB 4 Dose Schedule Unknown Completed [facility] MMR Unknown Completed [facility] IPV Unknown Completed [facility] IPV Unknown Completed [facility] Poliovirus, Live, Oral, Trivalent Unknown Completed [facility] Poliovirus, Live, Oral, Trivalent Unknown Completed [facility] Tetanus/Diptheria [facility] Influenza Virus Vaccine Quad IM, Preserv and ABX Free 6 MO-64 YRS (FLUCELVAX) Unknown Completed [facility] HPV Unknown Completed [facility] Meningococcal Polysaccharide (groups A, C, Y and W-135) conjugate vaccine (MCV4P) Unknown Completed [facility] TDAP (ADACEL) VACCINE Unknown Completed [facility] Influenza Virus Vaccine Quad .5 mL IM 6+ MO (FLUZONE/FLULAVAL/FL UARIX) Unknown Completed [facility] TDAP (ADACEL) VACCINE Unknown [facility] [facility] (ADACEL) VACCINE Unknown Completed [facility] Influenza Virus Vaccine Quad .5 mL IM 6+ MO (FLUZONE/FLULAVAL/FL UARIX) Unknown Completed [facility] HPV Unknown Completed [facility] Meningococcal Polysaccharide (groups A, C, Y and W-135) conjugate vaccine (MCV4P) Unknown Completed [facility] Varicella (varivax)(chicken pox) Unknown Completed [facility] SARS-COV-2 COVID-19 VACCINE - (MODERNA) Unknown Completed [facility] SARS-COV-2 COVID-19 VACCINE - (MODERNA) Unknown Completed [facility] DTaP, Unspecified Formulation Unknown Completed [facility] DTaP, Unspecified Formulation Unknown Completed [facility] DTaP, Unspecified Formulation Unknown Completed [facility] DTaP, Unspecified Formulation Unknown Completed [facility] HEPATITIS A Unknown Completed [facility] Hep B, Adol or Pedi Dosage Unknown Completed [facility] Hep B, Adol or Pedi Dosage Unknown Completed [facility] HIB 4 Dose Schedule Unknown Completed [facility] HIB 4 Dose Schedule Unknown Completed [facility] MMR Unknown Completed [facility] IPV Unknown Completed [facility] IPV Unknown Completed [facility] Poliovirus, Live, Oral, Trivalent Unknown Completed [facility] Poliovirus, Live, Oral, Trivalent Unknown Completed [facility] Tetanus[facility]heria [facility] Influenza Virus Vaccine Quad IM, Preserv and ABX Free 6 MO-64 YRS (FLUCELVAX) Unknown Completed [facility] HPV Unknown Completed [facility] Meningococcal Polysaccharide (groups A, C, Y and W-135) conjugate vaccine (MCV4P) Unknown Completed [facility] TDAP (ADACEL) VACCINE Unknown Completed [facility] Influenza Virus Vaccine Quad .5 mL IM 6+ MO (FLUZONE/FLULAVAL/FL UARIX) Unknown Completed [facility] TDAP (ADACEL) VACCINE Unknown Completed [facility] TDAP (ADACEL) VACCINE Unknown Completed [facility] Influenza Virus Vaccine Quad .5 mL IM 6+ MO (FLUZONE/FLULAVAL/FL UARIX) Unknown Completed [facility] HPV Unknown Completed [facility] Meningococcal Polysaccharide (groups A, C, Y and W-135) conjugate vaccine (MCV4P) Unknown Completed [facility] Varicella (varivax)(chicken pox) Unknown Completed [facility] SARS-COV-2 COVID-19 VACCINE - (MODERNA) Unknown Completed [facility] SARS-COV-2 COVID-19 VACCINE - (MODERNA) Unknown Completed [facility] DTaP, Unspecified Formulation Unknown Completed [facility] DTaP, Unspecified Formulation Unknown Completed [facility] DTaP, Unspecified Formulation Unknown Completed [facility] DTaP, Unspecified Formulation Unknown Completed [facility] HEPATITIS A Unknown Completed [facility] Hep B, Adol or Pedi Dosage Unknown Completed [facility] Hep B, Adol or Pedi Dosage Unknown Completed [facility] HIB 4 Dose Schedule Unknown Completed [facility] HIB 4 Dose Schedule Unknown Completed [facility] MMR Unknown Completed [facility] IPV Unknown Completed [facility] IPV Unknown Completed [facility] Poliovirus, Live, Oral, Trivalent Unknown Completed [facility] Poliovirus, Live, Oral, Trivalent Unknown Completed [facility] Tetanus/Diptheria [facility] Completed [facility] Influenza Virus Vaccine Quad IM, Preserv and ABX Free 6 MO-64 YRS (FLUCELVAX) Unknown Completed [facility] HPV Unknown Completed [facility] Meningococcal Polysaccharide (groups A, C, Y and W-135) conjugate vaccine (MCV4P) Unknown Completed [facility] TDAP (ADACEL) VACCINE Unknown Completed [facility] Influenza Virus Vaccine Quad .5 mL IM 6+ MO (FLUZONE/FLULAVAL/FL UARIX) Unknown Completed [facility] TDAP (ADACEL) VACCINE Unknown Completed [facility] TDAP (ADACEL) VACCINE Unknown Completed [facility] Influenza Virus Vaccine Quad .5 mL IM 6+ MO (FLUZONE/FLULAVAL/FL UARIX) Unknown Completed [facility] HPV Unknown Completed [facility] Meningococcal Polysaccharide (groups A, C, Y and W-135) conjugate vaccine (MCV4P) Unknown Completed [facility] Varicella (varivax)(chicken pox) Unknown Completed [facility] SARS-COV-2 COVID-19 VACCINE - (MODERNA) Unknown Completed [facility] SARS-COV-2 COVID-19 VACCINE - (MODERNA) Unknown Completed [facility] DTaP, Unspecified Formulation Unknown Completed [facility] DTaP, Unspecified Formulation Unknown Completed [facility] DTaP, Unspecified Formulation Unknown Completed [facility] DTaP, Unspecified Formulation Unknown Completed [facility] HEPATITIS A Unknown Completed [facility] Hep B, Adol or Pedi Dosage Unknown Completed [facility] Hep B, Adol or Pedi Dosage Unknown Completed [facility] HIB 4 Dose Schedule Unknown Completed [facility] HIB 4 Dose Schedule Unknown Completed [facility] MMR Unknown Completed [facility] IPV Unknown Completed [facility] IPV Unknown Completed [facility] Poliovirus, Live, Oral, Trivalent Unknown Completed [facility] Poliovirus, Live, Oral, Trivalent Unknown Completed [facility] Tetanus/Diptheria Unknown Completed [facility] TDAP Unknown Completed [facility] Influenza Virus Vaccine Quad IM, Preserv and ABX Free 6 MO-64 YRS (FLUCELVAX) Unknown Completed [facility] HPV Unknown Completed [facility] Meningococcal Polysaccharide (groups A, C, Y and W-135) conjugate vaccine (MCV4P) Unknown Completed [facility] TDAP (ADACEL) VACCINE Unknown Completed [facility] Influenza Virus Vaccine Quad .5 mL IM 6+ MO (FLUZONE/FLULAVAL/FL UARIX) Unknown Completed [facility] TDAP (ADACEL) VACCINE Unknown Completed [facility] TDAP (ADACEL) VACCINE Unknown Completed [facility] Influenza Virus Vaccine Quad .5 mL IM 6+ MO (FLUZONE/FLULAVAL/FL UARIX) Unknown Completed [facility] HPV Unknown Completed [facility] Meningococcal Polysaccharide (groups A, C, Y and W-135) conjugate vaccine (MCV4P) Unknown Completed [facility] Varicella (varivax)(chicken pox) Unknown Completed [facility] SARS-COV-2 COVID-19 VACCINE - (MODERNA) Unknown Completed [facility] SARS-COV-2 COVID-19 VACCINE - (MODERNA) Unknown Completed [facility] DTaP, Unspecified Formulation Unknown Completed [facility] DTaP, Unspecified Formulation Unknown Completed [facility] DTaP, Unspecified Formulation Unknown Completed [facility] DTaP, Unspecified Formulation Unknown Completed [facility] HEPATITIS A Unknown Completed [facility] Hep B, Adol or Pedi Dosage Unknown Completed [facility] Hep B, Adol or Pedi Dosage Unknown Completed [facility] HIB 4 Dose Schedule Unknown Completed [facility] HIB 4 Dose Schedule Unknown Completed [facility] MMR Unknown Completed [facility] IPV Unknown Completed [facility] IPV Unknown Completed [facility] Poliovirus, Live, Oral, Trivalent Unknown Completed [facility] Poliovirus, Live, Oral, Trivalent Unknown Completed [facility] Tetanus/Diptheria [facility] Com[facility] Influenza Virus Vaccine Quad IM, Preserv and ABX Free 6 MO-64 YRS (FLUCELVAX) Unknown Completed [facility] HPV Unknown Completed [facility] Meningococcal Polysaccharide (groups A, C, Y and W-135) conjugate vaccine (MCV4P) Unknown Completed [facility] TDAP (ADACEL) VACCINE Unknown Completed [facility] Influenza Virus Vaccine Quad .5 mL IM 6+ MO (FLUZONE/FLULAVAL/FL UARIX) Unknown Completed [facility] TDAP (ADACEL) VACCINE Unknown Completed [facility] TDAP (ADACEL) VACCINE Unknown Completed [facility] Influenza Virus Vaccine Quad .5 mL IM 6+ MO (FLUZONE/FLULAVAL/FL UARIX) Unknown Completed [facility] HPV Unknown Completed [facility] Meningococcal Polysaccharide (groups A, C, Y and W-135) conjugate vaccine (MCV4P) Unknown Completed [facility] Varicella (varivax)(chicken pox) Unknown Completed [facility] SARS-COV-2 COVID-19 VACCINE - (MODERNA) Unknown Completed [facility] SARS-COV-2 COVID-19 VACCINE - (MODERNA) Unknown Completed [facility] DTaP, Unspecified Formulation Unknown Completed [facility] DTaP, Unspecified Formulation Unknown Completed [facility] DTaP, Unspecified Formulation Unknown Completed [facility] DTaP, Unspecified Formulation Unknown Completed [facility] HEPATITIS A Unknown Completed [facility] Hep B, Adol or Pedi Dosage Unknown Completed [facility] Hep B, Adol or Pedi Dosage Unknown Completed [facility] HIB 4 Dose Schedule Unknown Completed [facility] HIB 4 Dose Schedule Unknown Completed [facility] MMR Unknown Completed [facility] IPV Unknown Completed [facility] IPV Unknown Completed [facility] Poliovirus, Live, Oral, Trivalent Unknown Completed [facility] Poliovirus, Live, Oral, Trivalent Unknown Completed [facility] Tetanus/Diptheria [facility] Completed [facility] Influenza Virus Vaccine Quad IM, Preserv and ABX Free 6 MO-64 YRS (FLUCELVAX) Unknown Completed [facility] HPV Unknown Completed [facility] Meningococcal Polysaccharide (groups A, C, Y and W-135) conjugate vaccine (MCV4P) Unknown Completed [facility] TDAP (ADACEL) VACCINE Unknown Completed [facility] Influenza Virus Vaccine Quad .5 mL IM 6+ MO (FLUZONE/FLULAVAL/FL UARIX) Unknown Completed [facility] TDAP (ADACEL) VACCINE Unknown Completed [facility] TDAP (ADACEL) VACCINE Unknown Completed [facility] Influenza Virus Vaccine Quad .5 mL IM 6+ MO (FLUZONE/FLULAVAL/FL UARIX) Unknown Completed [facility] HPV Unknown Completed [facility] Meningococcal Polysaccharide (groups A, C, Y and W-135) conjugate vaccine (MCV4P) Unknown Completed [facility] Varicella (varivax)(chicken pox) Unknown Completed [facility] SARS-COV-2 COVID-19 VACCINE - (MODERNA) Unknown Completed [facility] SARS-COV-2 COVID-19 VACCINE - (MODERNA) Unknown Completed [facility] DTaP, Unspecified Formulation Unknown Completed [facility] DTaP, Unspecified Formulation Unknown Completed [facility] DTaP, Unspecified Formulation Unknown Completed [facility] DTaP, Unspecified Formulation Unknown Completed [facility] HEPATITIS A Unknown Completed [facility] Hep B, Adol or Pedi Dosage Unknown Completed [facility] Hep B, Adol or Pedi Dosage Unknown Completed [facility] HIB 4 Dose Schedule Unknown Completed [facility] HIB 4 Dose Schedule Unknown Completed [facility] MMR Unknown Completed [facility] IPV Unknown Completed [facility] IPV Unknown Completed [facility] Poliovirus, Live, Oral, Trivalent Unknown Completed [facility] Poliovirus, Live, Oral, Trivalent Unknown Completed [facility] Tetanus/Diptheria [facility] Completed [facility] Influenza Virus Vaccine Quad IM, Preserv and ABX Free 6 MO-64 YRS (FLUCELVAX) Unknown Completed [facility] HPV Unknown Completed [facility] Meningococcal Polysaccharide (groups A, C, Y and W-135) conjugate vaccine (MCV4P) Unknown Completed [facility] TDAP (ADACEL) VACCINE Unknown Completed [facility] Influenza Virus Vaccine Quad .5 mL IM 6+ MO (FLUZONE/FLULAVAL/FL UARIX) Unknown Completed [facility] TDAP (ADACEL) VACCINE Unknown Completed [facility] TDAP (ADACEL) VACCINE Unknown Completed [facility] Influenza Virus Vaccine Quad .5 mL IM 6+ MO (FLUZONE/FLULAVAL/FL UARIX) Unknown Completed [facility] HPV Unknown Completed [facility] Meningococcal Polysaccharide (groups A, C, Y and W-135) conjugate vaccine (MCV4P) Unknown Completed [facility] Varicella (varivax)(chicken pox) Unknown Completed [facility] SARS-COV-2 COVID-19 VACCINE - (MODERNA) Unknown Completed [facility] SARS-COV-2 COVID-19 VACCINE - (MODERNA) Unknown Completed [facility] DTaP, Unspecified Formulation Unknown Completed [facility] DTaP, Unspecified Formulation Unknown Completed [facility] DTaP, Unspecified Formulation Unknown Completed [facility] DTaP, Unspecified Formulation Unknown Completed [facility] HEPATITIS A Unknown Completed [facility] Hep B, Adol or Pedi Dosage Unknown Completed [facility] Hep B, Adol or Pedi Dosage Unknown Completed [facility] HIB 4 Dose Schedule Unknown Completed [facility] HIB 4 Dose Schedule Unknown Completed [facility] MMR Unknown Completed [facility] IPV Unknown Completed [facility] IPV Unknown Completed [facility] Poliovirus, Live, Oral, Trivalent Unknown Completed [facility] Poliovirus, Live, Oral, Trivalent Unknown Completed [facility] Tetanus/Diptheria Unknown [facility] Completed [facility] Influenza Virus Vaccine Quad IM, Preserv and ABX Free 6 MO-64 YRS (FLUCELVAX) Unknown Completed [facility] HPV Unknown Completed [facility] Meningococcal Polysaccharide (groups A, C, Y and W-135) conjugate vaccine (MCV4P) Unknown Completed [facility] TDAP (ADACEL) VACCINE Unknown Completed [facility] Influenza Virus Vaccine Quad .5 mL IM 6+ MO (FLUZONE/FLULAVAL/FL UARIX) Unknown Completed [facility] TDAP (ADACEL) VACCINE Unknown Completed [facility] TDAP (ADACEL) VACCINE Unknown Completed [facility] Influenza Virus Vaccine Quad .5 mL IM 6+ MO (FLUZONE/FLULAVAL/FL UARIX) Unknown Completed [facility] HPV Unknown Completed [facility] Meningococcal Polysaccharide (groups A, C, Y and W-135) conjugate vaccine (MCV4P) Unknown Completed [facility] Varicella (varivax)(chicken pox) Unknown Completed [facility] SARS-COV-2 COVID-19 VACCINE - (MODERNA) Unknown Completed [facility] SARS-COV-2 COVID-19 VACCINE - (MODERNA) Unknown Completed [facility] DTaP, Unspecified Formulation Unknown Completed [facility] DTaP, Unspecified Formulation Unknown Completed [facility] DTaP, Unspecified Formulation Unknown Completed [facility] DTaP, Unspecified Formulation Unknown Completed [facility] HEPATITIS A Unknown Completed [facility] Hep B, Adol or Pedi Dosage Unknown Completed [facility] Hep B, Adol or Pedi Dosage Unknown Completed [facility] HIB 4 Dose Schedule Unknown Completed [facility] HIB 4 Dose Schedule Unknown Completed [facility] MMR Unknown Completed [facility] IPV Unknown Completed [facility] IPV Unknown Completed [facility] Poliovirus, Live, Oral, Trivalent Unknown Completed [facility] Poliovirus, Live, Oral, Trivalent Unknown Completed [facility] Tetanus/Diptheria Unknown Completed [facility] TDAP Unknown Completed [facility] Influenza Virus Vaccine Quad IM, Preserv and ABX Free 6 MO-64 YRS (FLUCELVAX) Unknown Completed [facility] HPV Unknown Completed [facility] Meningococcal Polysaccharide (groups A, C, Y and W-135) conjugate vaccine (MCV4P) Unknown Completed [facility] TDAP (ADACEL) VACCINE Unknown Completed [facility] Influenza Virus Vaccine Quad .5 mL IM 6+ MO (FLUZONE/FLULAVAL/FL UARIX) Unknown Completed [facility] TDAP (ADACEL) VACCINE Unknown Completed [facility] TDAP (ADACEL) VACCINE Unknown Completed [facility] Influenza Virus Vaccine Quad .5 mL IM 6+ MO (FLUZONE/FLULAVAL/FL UARIX) Unknown Completed [facility] HPV Unknown Completed [facility] Meningococcal Polysaccharide (groups A, C, Y and W-135) conjugate vaccine (MCV4P) Unknown Completed [facility] Varicella (varivax)(chicken pox) Unknown Completed [facility] SARS-COV-2 COVID-19 VACCINE - (MODERNA) Unknown Completed [facility] SARS-COV-2 COVID-19 VACCINE - (MODERNA) Unknown Completed [facility] DTaP, Unspecified Formulation Unknown Completed [facility] DTaP, Unspecified Formulation Unknown Completed [facility] DTaP, Unspecified Formulation Unknown Completed [facility] DTaP, Unspecified Formulation Unknown Completed [facility] HEPATITIS A Unknown Completed [facility] Hep B, Adol or Pedi Dosage Unknown Completed [facility] Hep B, Adol or Pedi Dosage Unknown Completed [facility] HIB 4 Dose Schedule Unknown Completed [facility] HIB 4 Dose Schedule Unknown Completed [facility] MMR Unknown Completed [facility] IPV Unknown Completed [facility] IPV Unknown Completed [facility] Poliovirus, Live, Oral, Trivalent Unknown Completed [facility] Poliovirus, Live, Oral, Trivalent Unknown Completed [facility] Tetanus/Diptheria Unknown Completed [facility] TDAP Unknown Completed [facility] Influenza Virus Vaccine Quad IM, Preserv and ABX Free 6 MO-64 YRS (FLUCELVAX) Unknown Completed [facility] HPV Unknown Completed [facility] Meningococcal Polysaccharide (groups A, C, Y and W-135) conjugate vaccine (MCV4P) Unknown Completed [facility] TDAP (ADACEL) VACCINE Unknown Completed [facility] Influenza Virus Vaccine Quad .5 mL IM 6+ MO (FLUZONE/FLULAVAL/FL UARIX) Unknown Completed [facility] TDAP (ADACEL) VACCINE Unknown Completed [facility] TDAP (ADACEL) VACCINE Unknown Completed [facility] Influenza Virus Vaccine Quad .5 mL IM 6+ MO (FLUZONE/FLULAVAL/FL UARIX) Unknown Completed [facility] HPV Unknown Completed [facility] Meningococcal Polysaccharide (groups A, C, Y and W-135) conjugate vaccine (MCV4P) Unknown Completed [facility] Varicella (varivax)(chicken pox) Unknown Completed [facility] SARS-COV-2 COVID-19 VACCINE - (MODERNA) Unknown Completed [facility] SARS-COV-2 COVID-19 VACCINE - (MODERNA) Unknown Completed [facility] DTaP, Unspecified Formulation Unknown Completed [facility] DTaP, Unspecified Formulation Unknown Completed [facility] DTaP, Unspecified Formulation Unknown Completed [facility] DTaP, Unspecified Formulation Unknown Completed [facility] HEPATITIS A Unknown Completed [facility] Hep B, Adol or Pedi Dosage Unknown Completed [facility] Hep B, Adol or Pedi Dosage Unknown Completed [facility] HIB 4 Dose Schedule Unknown Completed [facility] HIB 4 Dose Schedule Unknown Completed [facility] MMR Unknown Completed [facility] IPV Unknown Completed [facility] IPV Unknown Completed [facility] Poliovirus, Live, Oral, Trivalent Unknown Completed [facility] Poliovirus, Live, Oral, Trivalent Unknown Completed [facility] Tetanus/Diptheria Unknown Completed [facility] TDAP Unknown Completed [facility] Influenza Virus Vaccine Quad IM, Preserv and ABX Free 6 MO-64 YRS (FLUCELVAX) Unknown Completed [facility] HPV Unknown Completed [facility] Meningococcal Polysaccharide (groups A, C, Y and W-135) conjugate vaccine (MCV4P) Unknown Completed [facility] TDAP (ADACEL) VACCINE Unknown Completed [facility] Influenza Virus Vaccine Quad .5 mL IM 6+ MO (FLUZONE/FLULAVAL/FL UARIX) Unknown Completed [facility] TDAP (ADACEL) VACCINE Unknown Completed [facility] TDAP (ADACEL) VACCINE Unknown Completed [facility] Influenza Virus Vaccine Quad .5 mL IM 6+ MO (FLUZONE/FLULAVAL/FL UARIX) Unknown Completed [facility] HPV Unknown Completed [facility] Meningococcal Polysaccharide (groups A, C, Y and W-135) conjugate vaccine (MCV4P) Unknown Completed [facility] Varicella (varivax)(chicken pox) Unknown Completed [facility] SARS-COV-2 COVID-19 VACCINE - (MODERNA) Unknown Completed [facility] SARS-COV-2 COVID-19 VACCINE - (MODERNA) Unknown Completed [facility] DTaP, Unspecified Formulation Unknown Completed [facility] DTaP, Unspecified Formulation Unknown Completed [facility] DTaP, Unspecified Formulation Unknown Completed [facility] DTaP, Unspecified Formulation Unknown Completed [facility] HEPATITIS A Unknown Completed [facility] Hep B, Adol or Pedi Dosage Unknown Completed [facility] Hep B, Adol or Pedi Dosage Unknown Completed [facility] HIB 4 Dose Schedule Unknown Completed [facility] HIB 4 Dose Schedule Unknown Completed [facility] MMR Unknown Completed [facility] IPV Unknown Completed [facility] IPV Unknown Completed [facility] Poliovirus, Live, Oral, Trivalent Unknown Completed [facility] Poliovirus, Live, Oral, Trivalent Unknown Completed [facility] Tetanus/Diptheria Unknown Completed [facility] [facility] Completed [facility] Influenza Virus Vaccine Quad IM, Preserv and ABX Free 6 MO-64 YRS (FLUCELVAX) Unknown Completed [facility] DTAP Unknown Completed [facility] HIB 4 Dose Schedule Unknown Completed [facility] Hep B, Adol or Pedi Dosage Unknown Completed [facility] MMR Unknown Completed [facility] Polio (IPV/OPV) Unknown Completed [facility] Varicella (varivax)(chicken pox) Unknown Completed [facility] DTAP Unknown Completed [facility] Hep B, Adol or Pedi Dosage Unknown Completed [facility] HIB 4 Dose Schedule Unknown Completed [facility] Polio (IPV/OPV) Unknown Completed [facility] MMR Unknown Completed [facility] Varicella (varivax)(chicken pox) Unknown Completed [facility] HPV Unknown Completed [facility] Meningococcal Polysaccharide (groups A, C, Y and W-135) conjugate vaccine (MCV4P) Unknown Completed [facility] TDAP (ADACEL) VACCINE Unknown Completed [facility] Influenza Virus Vaccine Quad .5 mL IM 6+ MO (FLUZONE/FLULAVAL/FL UARIX) Unknown Completed [facility] TDAP (ADACEL) VACCINE Unknown Completed [facility] TDAP (ADACEL) VACCINE Unknown Completed [facility] Influenza Virus Vaccine Quad .5 mL IM 6+ MO (FLUZONE/FLULAVAL/FL UARIX) Unknown Completed [facility] HPV Unknown Completed [facility] Meningococcal Polysaccharide (groups A, C, Y and W-135) conjugate vaccine (MCV4P) Unknown Completed [facility] Varicella (varivax)(chicken pox) Unknown Completed [facility] SARS-COV-2 COVID-19 VACCINE - (MODERNA) Unknown Completed [facility] SARS-COV-2 COVID-19 VACCINE - (MODERNA) Unknown Completed [facility] DTaP, Unspecified Formulation Unknown Completed [facility] DTaP, Unspecified Formulation Unknown Completed [facility] DTaP, Unspecified Formulation Unknown Completed [facility] DTaP, Unspecified Formulation Unknown Completed [facility] HEPATITIS A Unknown Completed [facility] Hep B, Adol or Pedi Dosage Unknown Completed [facility] Hep B, Adol or Pedi Dosage Unknown Completed [facility] HIB 4 Dose Schedule Unknown Completed [facility] HIB 4 Dose Schedule Unknown Completed [facility] MMR Unknown Completed [facility] IPV Unknown Completed [facility] IPV Unknown Completed [facility] Poliovirus, Live, Oral, Trivalent Unknown Completed [facility] Poliovirus, Live, Oral, Trivalent Unknown Completed [facility]ria [facility] Influenza Virus Vaccine Quad IM, Preserv and ABX Free 6 MO-64 YRS (FLUCELVAX) Unknown Completed [facility] HPV Unknown Completed [facility] Meningococcal Polysaccharide (groups A, C, Y and W-135) conjugate vaccine (MCV4P) Unknown Completed [facility] TDAP (ADACEL) VACCINE Unknown Completed [facility] Influenza Virus Vaccine Quad .5 mL IM 6+ MO (FLUZONE/FLULAVAL/FL UARIX) Unknown Completed [facility] TDAP (ADACEL) VACCINE Unknown Completed [facility] TDAP (ADACEL) VACCINE Unknown Completed [facility] Influenza Virus Vaccine Quad .5 mL IM 6+ MO (FLUZONE/FLULAVAL/FL UARIX) Unknown Completed [facility] HPV Unknown Completed [facility] Meningococcal Polysaccharide (groups A, C, Y and W-135) conjugate vaccine (MCV4P) Unknown Completed [facility] Varicella (varivax)(chicken pox) Unknown Completed [facility] SARS-COV-2 COVID-19 VACCINE - (MODERNA) Unknown Completed [facility] SARS-COV-2 COVID-19 VACCINE - (MODERNA) Unknown Completed [facility] DTaP, Unspecified Formulation Unknown Completed [facility] DTaP, Unspecified Formulation Unknown Completed [facility] DTaP, Unspecified Formulation Unknown Completed [facility] DTaP, Unspecified Formulation Unknown Completed [facility] HEPATITIS A Unknown Completed [facility] Hep B, Adol or Pedi Dosage Unknown Completed [facility] Hep B, Adol or Pedi Dosage Unknown Completed [facility] HIB 4 Dose Schedule Unknown Completed [facility] HIB 4 Dose Schedule Unknown Completed [facility] MMR Unknown Completed [facility] IPV Unknown Completed [facility] IPV Unknown Completed [facility] Poliovirus, Live, Oral, Trivalent Unknown Completed [facility] Poliovirus, Live, Oral, Trivalent Unknown Completed [facility]anus[facility]iptheria [facility] Influenza Virus Vaccine Quad IM, Preserv and ABX Free 6 MO-64 YRS (FLUCELVAX) Unknown Completed [facility] HPV Unknown Completed [facility] Meningococcal Polysaccharide (groups A, C, Y and W-135) conjugate vaccine (MCV4P) Unknown Completed [facility] TDAP (ADACEL) VACCINE Unknown Completed [facility] Influenza Virus Vaccine Quad .5 mL IM 6+ MO (FLUZONE/FLULAVAL/FL UARIX) Unknown Completed [facility] TDAP (ADACEL) VACCINE Unknown Completed [facility] TDAP (ADACEL) VACCINE Unknown Completed [facility] Influenza Virus Vaccine Quad .5 mL IM 6+ MO (FLUZONE/FLULAVAL/FL UARIX) Unknown Completed [facility] HPV Unknown Completed [facility] Meningococcal Polysaccharide (groups A, C, Y and W-135) conjugate vaccine (MCV4P) Unknown Completed [facility] Varicella (varivax)(chicken pox) Unknown Completed [facility] SARS-COV-2 COVID-19 VACCINE - (MODERNA) Unknown Completed [facility] SARS-COV-2 COVID-19 VACCINE - (MODERNA) Unknown Completed [facility] DTaP, Unspecified Formulation Unknown Completed [facility] DTaP, Unspecified Formulation Unknown Completed [facility] DTaP, Unspecified Formulation Unknown Completed [facility] DTaP, Unspecified Formulation Unknown Completed [facility] HEPATITIS A Unknown Completed [facility] Hep B, Adol or Pedi Dosage Unknown Completed [facility] Hep B, Adol or Pedi Dosage Unknown Completed [facility] HIB 4 Dose Schedule Unknown Completed [facility] HIB 4 Dose Schedule Unknown Completed [facility] MMR Unknown Completed [facility] IPV Unknown Completed [facility] IPV Unknown Completed [facility] Poliovirus, Live, Oral, Trivalent Unknown Completed [facility] Poliovirus, Live, Oral, Trivalent Unknown Completed [facility] Tetanus/Diptheria Unknown Completed [facility] TDAP Unknown Completed [facility] Influenza Virus Vaccine Quad IM, Preserv and ABX Free 6 MO-64 YRS (FLUCELVAX) Unknown Completed [facility] HPV Unknown Completed [facility] Meningococcal Polysaccharide (groups A, C, Y and W-135) conjugate vaccine (MCV4P) Unknown Completed [facility] TDAP (ADACEL) VACCINE Unknown Completed [facility] Influenza Virus Vaccine Quad .5 mL IM 6+ MO (FLUZONE/FLULAVAL/FL UARIX) Unknown Completed [facility] TDAP (ADACEL) VACCINE Unknown Completed [facility] TDAP (ADACEL) VACCINE Unknown Completed [facility] Influenza Virus Vaccine Quad .5 mL IM 6+ MO (FLUZONE/FLULAVAL/FL UARIX) Unknown Completed [facility] HPV Unknown Completed [facility] Meningococcal Polysaccharide (groups A, C, Y and W-135) conjugate vaccine (MCV4P) Unknown Completed [facility] Varicella (varivax)(chicken pox) Unknown Completed [facility] SARS-COV-2 COVID-19 VACCINE - (MODERNA) Unknown Completed [facility] SARS-COV-2 COVID-19 VACCINE - (MODERNA) Unknown Completed [facility] DTaP, Unspecified Formulation Unknown Completed [facility] DTaP, Unspecified Formulation Unknown Completed [facility] DTaP, Unspecified Formulation Unknown Completed [facility] DTaP, Unspecified Formulation Unknown Completed [facility] HEPATITIS A Unknown Completed [facility] Hep B, Adol or Pedi Dosage Unknown Completed [facility] Hep B, Adol or Pedi Dosage Unknown Completed [facility] HIB 4 Dose Schedule Unknown Completed [facility] HIB 4 Dose Schedule Unknown Completed [facility] MMR Unknown Completed [facility] IPV Unknown Completed [facility] IPV Unknown Completed [facility] Poliovirus, Live, Oral, Trivalent Unknown Completed [facility] Poliovirus, Live, Oral, Trivalent Unknown Completed [facility] Tetanus/Diptheria Unknown Completed [facility] TDAP Unknown Completed [facility] Influenza Virus Vaccine Quad IM, Preserv and ABX Free 6 MO-64 YRS (FLUCELVAX) Unknown Completed [facility] Vital Signs Vital Name Observation Time Observation Value Comments S ource Systolic blood pressure 2024-04-19 18:11:00 126 mm[Hg] [facility] Diastolic blood pressure 2024-04-19 18:11:00 75 mm[Hg] [facility] Heart rate 2024-04-19 18:11:00 93 /min [facility] Body temperature 2024-04-19 18:11:00 37 Roselia [facility] Respiratory rate 2024-04-19 18:11:00 14 /min [facility] Body height 2024-04-19 18:11:00 165.1 cm [facility] Body weight 2024-04-19 18:11:00 102.059 kg [facility] BMI 2024-04-19 18:11:00 37.44 kg/m2 [facility] Oxygen saturation in Arterial blood by Pulse oximetry 2024-04-19 18:11:00 100 /min [facility] Systolic blood pressure 2023-10-10 17:38:00 102 mm[Hg] [facility] Diastolic blood pressure 2023-10-10 17:38:00 78 mm[Hg] [facility] Heart rate 2023-10-10 17:38:00 84 /min [facility] Respiratory rate 2023-10-10 17:38:00 18 /min [facility] Body weight 2023-10-10 17:38:00 92.987 kg [facility] BMI 2023-10-10 17:38:00 34.11 kg/m2 [facility] Oxygen saturation in Arterial blood by Pulse oximetry 2023-10-10 17:38:00 99 /min [facility] Systolic blood pressure 2023-09-27 13:45:00 105 mm[Hg] [facility] Diastolic blood pressure 2023-09-27 13:45:00 52 mm[Hg] [facility] Heart rate 2023-09-27 13:45:00 63 /[facility] Body temperature 2023-09-27 13:45:00 36.61 Roselia [facility] Respiratory rate 2023-09-27 13:45:00 16 /min [facility] Oxygen saturation in Arterial blood by Pulse oximetry 2023-09-27 13:45:00 99 /min [facility] Body weight 2023-09-26 14:00:00 103 kg [facility] BMI 2023-09-26 14:00:00 37.79 kg/m2 [facility] Systolic blood pressure 2023-09-18 21:43:00 119 mm[Hg] [facility] Diastolic blood pressure 2023-09-18 21:43:00 75 mm[Hg] [facility] Heart rate 2023-09-18 21:43:00 86 /min [facility] Body temperature 2023-09-18 21:43:00 36.78 Roselia [facility] Respiratory rate 2023-09-18 21:43:00 18 /min [facility] Body height 2023-09-18 21:43:00 165.1 cm [facility] Body weight 2023-09-18 21:43:00 102.241 kg [facility] BMI 2023-09-18 21:43:00 37.51 kg/m2 [facility] Oxygen saturation in Arterial blood by Pulse oximetry 2023-09-18 21:43:00 100 /min [facility] Systolic blood pressure 2023-09-16 09:30:00 118 mm[Hg] [facility] Diastolic blood pressure 2023-09-16 09:30:00 70 mm[Hg] [facility] Heart rate 2023-09-16 09:30:00 93 /min [facility] Body temperature 2023-09-16 09:30:00 36.83 Roselia [facility] Oxygen saturation in Arterial blood by Pulse oximetry 2023-09-16 09:30:00 100 /min [facility] Respiratory rate 2023-09-16 07:45:00 17 /min [facility] Systolic blood pressure 2023-09-11 22:18:00 125 mm[Hg] [facility] Diastolic blood pressure 2023-09-11 22:18:00 73 mm[Hg] [facility] Heart rate 2023-09-11 22:18:00 86 /min [facility] Body temperature 2023-09-11 22:18:00 37.28 Roselia [facility] Respiratory rate 2023-09-11 22:18:00 16 /min [facility] Body weight 2023-09-11 22:18:00 98.612 kg [facility] BMI 2023-09-11 22:18:00 36.18 kg/m2 [facility] Oxygen saturation in Arterial blood by Pulse oximetry 2023-09-11 22:18:00 100 /min [facility] Systolic blood pressure 2023-09-08 03:30:00 125 mm[Hg] [facility] Diastolic blood pressure 2023-09-08 03:30:00 65 mm[Hg] [facility] Heart rate 2023-09-08 03:30:00 92 /min [facility] Oxygen saturation in Arterial blood by Pulse oximetry 2023-09-08 03:30:00 100 /min [facility] Body temperature 2023-09-08 02:40:00 36.61 Roselia [facility] Respiratory rate 2023-09-08 02:40:00 17 /min [facility] Systolic blood pressure 2023-09-03 22:00:00 112 mm[Hg] [facility] Diastolic blood pressure 2023-09-03 22:00:00 70 mm[Hg] [facility] Heart rate 2023-09-03 22:00:00 109 /min [facility] Oxygen saturation in Arterial blood by Pulse oximetry 2023-09-03 22:00:00 100 /min [facility] Body temperature 2023-09-03 21:37:00 36.78 Roselia [facility] Respiratory rate 2023-09-03 21:37:00 16 /min [facility] Body height 2023-09-03 21:13:00 165.1 cm [facility] Body weight 2023-09-03 21:13:00 96.798 kg [facility] BMI 2023-09-03 21:13:00 35.51 kg/m2 [facility] Systolic blood pressure 2023-09-02 20:21:00 113 mm[Hg] [facility] Diastolic blood pressure 2023-09-02 20:21:00 67 mm[Hg] [facility] Heart rate 2023-09-02 20:21:00 93 /min [facility] Body temperature 2023-09-02 20:21:00 36.83 Roselia [facility] Respiratory rate 2023-09-02 20:21:00 16 /min [facility] Body height 2023-09-02 20:21:00 165.1 cm [facility] Body weight 2023-09-02 20:21:00 95.255 kg [facility] BMI 2023-09-02 20:21:00 34.95 kg/m2 [facility] Oxygen saturation in Arterial blood by Pulse oximetry 2023-09-02 20:21:00 97 /min [facility] Systolic blood pressure 2023-08-28 17:08:00 108 mm[Hg] [facility] Diastolic blood pressure 2023-08-28 17:08:00 69 mm[Hg] [facility] Heart rate 2023-08-28 17:08:00 90 /min [facility] Body temperature 2023-08-28 17:08:00 36.5 Roselia [facility] Body height 2023-08-28 17:08:00 165.1 cm [facility] Body weight 2023-08-28 17:08:00 94.439 kg [facility] BMI 2023-08-28 17:08:00 34.65 kg/m2 [facility] Heart rate 2023-08-22 18:00:00 84 /min [facility] Oxygen saturation in Arterial blood by Pulse oximetry 2023-08-22 18:00:00 99 /min [facility] Systolic blood pressure 2023-08-22 17:00:00 123 mm[Hg] [facility] Diastolic blood pressure 2023-08-22 17:00:00 63 mm[Hg] [facility] Body temperature 2023-08-22 17:00:00 36.06 Roselia [facility] Respiratory rate 2023-08-22 17:00:00 16 /min [facility] Body weight 2023-08-20 21:50:00 99.542 kg [facility] BMI 2023-08-20 21:50:00 36.52 kg/m2 [facility] Body height 2023-08-20 21:01:00 165.1 cm [facility] Systolic blood pressure 2023-08-04 16:25:00 108 mm[Hg] [facility] Diastolic blood pressure 2023-08-04 16:25:00 64 mm[Hg] [facility] Heart rate 2023-08-04 16:25:00 87 /[facility] 2023-08-04 16:25:00 36.56 Roselia [facility] Respiratory rate 2023-08-04 16:25:00 18 /min [facility] Body height 2023-08-04 16:25:00 165.1 cm [facility] Body weight 2023-08-04 16:25:00 94.802 kg [facility] BMI 2023-08-04 16:25:00 34.78 kg/m2 [facility] Oxygen saturation in Arterial blood by Pulse oximetry 2023-08-04 16:25:00 99 /min [facility] Heart rate 2023-07-29 09:45:00 92 /min [facility] Oxygen saturation in Arterial blood by Pulse oximetry 2023-07-29 09:45:00 100 /min [facility] Body height 2023-07-29 09:38:00 165.1 cm [facility] Body weight 2023-07-29 09:38:00 97.614 kg [facility] BMI 2023-07-29 09:38:00 35.81 kg/m2 [facility] Systolic blood pressure 2023-07-29 09:30:00 119 mm[Hg] [facility] Diastolic blood pressure 2023-07-29 09:30:00 64 mm[Hg] [facility] Body temperature 2023-07-29 09:30:00 36.67 Roselia [facility] Heart rate 2023-06-14 20:00:00 63 /[facility] in Arterial blood by Pulse oximetry 2023-06-14 20:00:00 100 /min [facility] Systolic blood pressure 2023-06-14 18:02:00 112 mm[Hg] [facility] Diastolic blood pressure 2023-06-14 18:02:00 58 mm[Hg] [facility] Body temperature 2023-06-14 18:02:00 36.89 Roselia [facility] Respiratory rate 2023-06-14 18:02:00 16 /min [facility] Body height 2023-06-14 17:49:00 165.1 cm [facility] Body weight 2023-06-14 17:49:00 93.35 kg [facility] BMI 2023-06-14 17:49:00 34.25 kg/m2 [facility] Systolic blood pressure 2023-05-03 22:46:00 117 mm[Hg] [facility] Diastolic blood pressure 2023-05-03 22:46:00 70 mm[Hg] [facility] Heart rate 2023-05-03 22:46:00 94 /min [facility] Body temperature 2023-05-03 22:46:00 36.67 Roselia [facility] Respiratory rate 2023-05-03 22:46:00 18 /min [facility] Oxygen saturation in Arterial blood by Pulse oximetry 2023-05-03 22:46:00 99 /min [facility] Heart rate 2023-04-18 21:00:00 77 /min [facility] Oxygen saturation in Arterial blood by Pulse oximetry 2023-04-18 21:00:00 100 /min [facility] Systolic blood pressure 2023-04-18 20:00:00 138 mm[Hg] [facility] Diastolic blood pressure 2023-04-18 20:00:00 75 mm[Hg] [facility] Body temperature 2023-04-18 17:42:00 37.33 Roselia [facility] Respiratory rate 2023-04-18 17:42:00 16 /min [facility] Body height 2023-04-18 17:42:00 165.1 cm [facility] Body weight 2023-04-18 17:42:00 92.987 kg [facility] BMI 2023-04-18 17:42:00 34.11 kg/m2 [facility] Systolic blood pressure 2023-04-02 13:43:00 122 mm[Hg] [facility] Diastolic blood pressure 2023-04-02 13:43:00 62 mm[Hg] [facility] Heart rate 2023-04-02 13:43:00 98 /min [facility] Body temperature 2023-04-02 13:43:00 36.61 Roselia [facility] Respiratory rate 2023-04-02 13:43:00 18 /min [facility] Body height 2023-04-02 13:43:00 165.1 cm [facility] Body weight 2023-04-02 13:43:00 94.575 kg [facility] BMI 2023-04-02 13:43:00 34.70 kg/m2 [facility] Systolic blood pressure 2023-03-11 18:08:00 119 mm[Hg] [facility] Diastolic blood pressure 2023-03-11 18:08:00 68 mm[Hg] [facility] Heart rate 2023-03-11 18:08:00 87 /min [facility] Body temperature 2023-03-11 18:08:00 36.78 Roselia [facility] Respiratory rate 2023-03-11 18:08:00 18 /min [facility] Body height 2023-03-11 18:08:00 165.1 cm [facility] Body weight 2023-03-11 18:08:00 93.044 kg [facility] BMI 2023-03-11 18:08:00 34.13 kg/m2 [facility] Systolic blood pressure 2023-02-11 18:05:00 112 mm[Hg] [facility] Diastolic blood pressure 2023-02-11 18:05:00 64 mm[Hg] [facility] Heart rate 2023-02-11 18:05:00 73 /min [facility] Body temperature 2023-02-11 18:05:00 36.78 Roselia [facility] Respiratory rate 2023-02-11 18:05:00 18 /min [facility] Body height 2023-02-11 18:05:00 165.1 cm [facility] Body weight 2023-02-11 18:05:00 88.508 kg [facility] BMI 2023-02-11 18:05:00 32.47 kg/m2 [facility] Systolic blood pressure 2022-01-17 03:00:00 119 mm[Hg] [facility] Diastolic blood pressure 2022-01-17 03:00:00 62 mm[Hg] [facility] Heart rate 2022-01-17 03:00:00 68 /min [facility] Respiratory rate 2022-01-17 03:00:00 16 /min [facility] Oxygen saturation in Arterial blood by Pulse oximetry 2022-01-17 03:00:00 100 /min [facility] Body temperature 2022-01-17 02:03:00 37.28 Roselia [facility] Body height 2022-01-17 02:03:00 165.1 cm [facility] Body weight 2022-01-17 02:03:00 90.719 kg [facility] BMI 2022-01-17 02:03:00 33.28 kg/m2 [facility] Systolic blood pressure 2019-05-27 20:39:00 107 mm[Hg] [facility] Diastolic blood pressure 2019-05-27 20:39:00 63 mm[Hg] [facility] Heart rate 2019-05-27 20:39:00 77 /min [facility] Body temperature 2019-05-27 20:39:00 36.94 Roselia [facility] Respiratory rate 2019-05-27 20:39:00 18 /min [facility] Body height 2019-05-27 20:39:00 165.1 cm [facility] Body weight 2019-05-27 20:39:00 98.431 kg [facility] BMI 2019-05-27 20:39:00 36.11 kg/m2 [facility] Systolic blood pressure 2019-05-27 20:39:00 107 mm[Hg] [facility] Diastolic blood pressure 2019-05-27 20:39:00 63 mm[Hg] [facility] Heart rate 2019-05-27 20:39:00 77 /min [facility] Body temperature 2019-05-27 20:39:00 36.94 Roselia [facility] Respiratory rate 2019-05-27 20:39:00 18 /min [facility] Body height 2019-05-27 20:39:00 165.1 cm [facility] Body weight 2019-05-27 20:39:00 98.431 kg [facility] BMI 2019-05-27 20:39:00 36.11 kg/m2 [facility] Systolic blood pressure 2019-05-17 21:39:00 114 mm[Hg] [facility] Diastolic blood pressure 2019-05-17 21:39:00 71 mm[Hg] [facility] Heart rate 2019-05-17 21:39:00 103 /min [facility] Body temperature 2019-05-17 21:39:00 37.11 [facility] [facility] Respiratory rate 2019-05-17 21:39:00 18 /min [facility] Body height 2019-05-17 21:39:00 165.1 cm [facility] Body weight 2019-05-17 21:39:00 100.154 kg [facility] BMI 2019-05-17 21:39:00 36.74 kg/m2 [facility] Systolic blood pressure 2019-05-17 21:39:00 114 mm[Hg] [facility] Diastolic blood pressure 2019-05-17 21:39:00 71 mm[Hg] [facility] Heart rate 2019-05-17 21:39:00 103 /min [facility] Body temperature 2019-05-17 21:39:00 37.11 Roselia [facility] Respiratory rate 2019-05-17 21:39:00 18 /min [facility] Body height 2019-05-17 21:39:00 165.1 cm [facility] Body weight 2019-05-17 21:39:00 100.154 kg [facility] BMI 2019-05-17 21:39:00 36.74 kg/m2 [facility] Systolic blood pressure 2019-05-04 18:09:00 135 mm[Hg] [facility] Diastolic blood pressure 2019-05-04 18:09:00 68 mm[Hg] [facility] Heart rate 2019-05-04 18:09:00 96 /min [facility] Body temperature 2019-05-04 18:09:00 36.78 Roselia [facility] Respiratory rate 2019-05-04 18:09:00 22 /min [facility] Oxygen saturation in Arterial blood by Pulse oximetry 2019-05-04 18:09:00 100 /min [facility] Systolic blood pressure 2019-04-29 21:00:00 127 mm[Hg] [facility] Diastolic blood pressure 2019-04-29 21:00:00 68 mm[Hg] [facility] Heart rate 2019-04-29 21:00:00 87 /min [facility] Body temperature 2019-04-29 21:00:00 36.39 Roselia [facility] Respiratory rate 2019-04-29 21:00:00 20 /min [facility] Body height 2019-04-29 21:00:00 165.1 cm [facility] Body weight 2019-04-29 21:00:00 98.431 kg [facility] BMI 2019-04-29 21:00:00 36.11 kg/m2 [facility] Body Temperature 2024-03-22 16:57:00 97.90 degrees [facility] Heart Rate 2024-03-22 16:57:00 101.00 /min [facility] Respiratory Rate 2024-03-22 16:57:00 20.00 /min [facility] BP Systolic 2024-03-22 16:57:00 120 mm[Hg] Step hen [facility] BP Diastolic 2024-03-22 16:57:00 82 mm[Hg] Rui phen [facility] Weight Measured 2024-03-22 16:57:00 223.00 pounds [facility] Height Measured 2024-03-22 16:57:00 66.00 inches [facility] Procedures Procedure Date / Time Performed Performing Clinician Source POCT TEST 2024-04-19 21:00:00 Evonne Lozoya [facility] CBC WITH DIFF 2023-09-27 00:33:00 [facility] CENTRAL NEURAXIAL BLOCK 2023-09-25 09:00:00 Xenia Venegas [facility] URINE DRUG (IMMUNOASSAY) - COMPREHENSIVE DRUG SCREEN 2023-09-25 08:17:00 Anthony [facility] CBC WITH DIFF 2023-09-25 08:05:00 Cruz [facility] HEPATITIS B SURFACE ANTIGEN 2023-09-25 08:05:00 Anthony [facility] HB ABO GROUPING 2023-09-25 08:05:[address] [facility] RHO (D) IMMUNE GLOBULIN 2023-09-25 08:05:00 Anthony [facility] ADC OR BRIDGER ONLY - RPR 2023-09-25 08:05:00 Anthony [facility] HIV 1/2 AG-AB WITH REFLEX 2023-09-25 08:05:00 Anthony [facility] URINE DRUG (IMMUNOASSAY) - COMPREHENSIVE DRUG SCREEN 2023-09-18 22:29:00 Anthony [facility] POCT URINALYSIS W/O SPECIFIC GRAVITY 2023-09-18 00:00:00 Anthony [facility] ASSIGNMENT OF BENEFITS 2023-09-16 10:25:05 Docto r Unassigned, [place] [facility] CONSENT/REFUSAL FOR DIAGNOSIS AND TREATMENT 2023-09-16 10:23:26 Doctor Unassigned, [place] [facility] CBC WITH DIFF 2023-09-16 09:30:00 Jordan Wilkinson [facility] COMP. METABOLIC PANEL (18273) 2023-09-16 08:49:00 Ariela Wilkinson [facility] >14 WEEKS US LIMITED 2023-09-11 22:52:27 Cruz [facility] POCT URINALYSIS W/O SPECIFIC GRAVITY 2023-09-11 00:00:00 Cruz [facility] ADC ONLY - FERN TEST 2023-09-08 02:41:00 AbdulazizMary bartholomew Guerrero [facility] POCT URINALYSIS W/O SPECIFIC GRAVITY 2023-08-28 00:00:00 Kory Cruz [facility] SECOND AND THIRD TRIMESTER ULTRASOUND 2023-08-22 19:52:00 Krystal Low [facility] POCT GLUCOSE (AUTOMATED) 2023-08-22 01:43:00 Eloy Chavez [facility] TRANSTHORACIC ECHO (TTE) COMPLETE 2023-08-21 14:54:52 [facility] RHYTHM STRIP 2023-08-21 14:04:01 Reynaldo [facility] THYROID STIMULATING HORMONE 2023-08-21 13:21:00 Mayra Welch [facility] BASIC METABOLIC PANEL (NA, K, CL, CO2, GLUCOSE, BUN, CREATININE, CA) 2023-08-21 13:21:00 Mayra Welch [facility] GLYCOSYLATED HEMOGLOBIN (A1C) 2023-08-21 13:21:00 Tito Pedersen [facility] RUBELLA SCREEN IGG 2023-08-21 13:21:00 [facility] ANTIBODY SCREEN 2023-08-21 13:21:00 Tito Pedersen [facility] HEPATITIS B SURFACE ANTIGEN 2023-08-21 13:21:00 Tito Pedersen [facility] HB ABO GROUPING 2023-08-21 13:21:00 Tito Pedersen [facility] HIV 1/2 AG-AB WITH REFLEX 2023-08-21 13:21:00 Tito Pedersen [facility] SYPHILIS IGG/IGM 2023-08-21 13:21:00 Tito Pedersen [facility] PROTHROMBIN TIME / INR 2023-08-21 01:40:00 Kory Cruz am [facility] ACTIVATED PARTIAL THRMPLAS BLANCA 2023-08-21 01:40:00 Kory Cruz [facility] URINE CULTURE 2023-08-21 01:31:00 Kory Cruz [facility] URINALYSIS 2023-08-21 01:16:[address] [facility] ADC CLC OR LCC ONLY - WET PREP 2023-08-21 01:16:00 [facility] STREPTOCOCCUS BY PCR 2023-08-21 01:16:00 Anthony [facility] CBC WITH DIFF 2023-08-21 01:15:00 Anthony Kory Pedro [facility] URINE DRUG (IMMUNOASSAY) - COMPREHENSIVE DRUG SCREEN 2023-08-21 01:14:00 Anthony [facility] HB ABO GROUPING 2023-08-21 01:14:00 Anthony Kory [facility] GC & CHLAMYDIA AMPLIFIED ASSAY 2023-08-21 01:13:00 [facility] US BIOPHYSICAL PROFILE 2023-08-20 23:58:11 Anthony [facility] US PELVIS > 14 WEEKS 2023-08-20 23:57:55 Anthony [facility] XR SHOULDER 2+ VW LEFT 2023-08-20 21:31:00 Selwyn Quintero alok [facility] HOSPITAL ADMISSION 2023-08-20 06:01:00 Doctor Un assigned, [place] [facility] TDAP VACCINE, >11 YRS, IM 2023-08-04 19:02:35 Anthony [facility] FLU VACC ([id number]), 6 MO-64 YRS, .5ML, IM, QUAD (FLUCELVAX) 2023-08-04 19:02:35 Anthony [facility] POCT URINALYSIS W/O SPECIFIC GRAVITY 2023-08-04 00:00:00 Anthony [facility] URINE DRUG (IMMUNOASSAY) - COMPREHENSIVE DRUG SCREEN 2023-07-29 09:49:00 Jaja [facility] URINALYSIS 2023-07-29 09:49:00 Jaja [facility] US PELVIS > 14 WEEKS 2023-06-14 20:12:00 Anthony [facility] URINALYSIS 2023-06-14 18:55:00 Kory Cruz [facility] ADC ONLY - FERN TEST 2023-06-14 18:55:00 Kory Cruz [facility] ASSIGNMENT OF BENEFITS 2023-06-14 17:37:47 Docto r Unassigned, [place] [facility] CONSENT/REFUSAL FOR DIAGNOSIS AND TREATMENT 2023-06-14 17:36:34 Doctor Unassigned, [place] [facility] SECOND AND THIRD TRIMESTER ULTRASOUND 2023-05-28 21:05:00 Krystal Low [facility] SECOND AND THIRD TRIMESTER ULTRASOUND 2023-05-28 20:25:00 Krystal Low [facility] URINE DRUG (IMMUNOASSAY) - COMPREHENSIVE DRUG SCREEN 2023-04-18 18:48:00 Jaja Ariela [facility] ADC CLC OR LCC ONLY - WET PREP 2023-04-18 18:48:00 Jaja [facility] CONSENT/REFUSAL FOR DIAGNOSIS AND TREATMENT 2023-04-18 16:42:47 Doctor Unassigned, [place] [facility] POCT URINALYSIS 2023-04-02 13:44:00 Krystal Low [facility] EXTERNAL PROVIDER RECORDS 2023-03-21 05:01:00 Doctor Unassigned, [place] [facility] POCT URINALYSIS 2023-03-11 18:00:00 Krystal Low [facility] AUTHORIZATION FOR RELEASE OF PHI 2023-03-11 05:01:00 Doctor Unassigned, [place] [facility] POCT URINALYSIS W/O SPECIFIC GRAVITY 2023-02-11 18:03:00 Krystal Low [facility] POCT TEST 2023-02-11 18:02:00 Rhona Low [facility] REPORT OF 2023-02-11 05:01:00 Doctor Kiran harper, [place] [facility] LIPASE 2022-01-17 03:09:00 [facility] COMP. METABOLIC PANEL ([id number]) 2022-01-17 03:09:00 Yvonne Siddiqi [facility] CBC WITH DIFF 2022-01-17 03:09:00 Yvonne Siddiqi [facility] POCT TEST 2022-01-17 02:14:00 Lakhwinder Weiner [facility] URINALYSIS 2022-01-17 02:10:00 Abraham Weiner [facility] NOTICE OF PRIVACY PRACTICES 2022-01-17 01:36:28 Doctor Unassigned, [place] [facility] CONSENT/REFUSAL FOR DIAGNOSIS AND TREATMENT 2022-01-17 01:36:18 Doctor Unassigned, [place] [facility] TDAP (ADACEL) IMMUNIZATION 2019-05-27 20:41:37 Josy Chaudhary [facility] US ABDOMEN LIMITED 2019-05-17 22:45:16 Josy Chaudhary [facility] ASSIGNMENT OF BENEFITS 2019-05-17 22:12:10 Docto r Unassigned, [place] [facility] URINALYSIS 2019-05-04 18:55:00 Kory Cruz [facility] ADC CLC OR LCC ONLY - WET PREP 2019-05-04 18:55:00 Kory Cruz [facility] ADC ONLY - FERN TEST 2019-05-04 18:54:00 Kory Cruz [facility] CONSENT/REFUSAL FOR DIAGNOSIS AND TREATMENT 2019-05-04 17:47:16 Doctor Unassigned, [place] [facility] Encounters Start Date/Time End Date/Time Encounter Type Admission Type Attending Clinicians Care Facility Care Department Encounter ID Source 2023-09-16 06:18:56 Outpatient X [facility] [id number] [facility] 2023-07-29 06:14:02 Outpatient X [facility] [id number] [facility] 2023-04-18 17:24:48 Outpatient X [facility] [id number] [facility] 2022-08-02 05:16:57 Emergency HFD HFD [id number] [facility] ent 2021-07-08 14:21:14 Outpatient [facility] [id number] [facility] 2024-05-10 15:30:10 2024-05-10 15:30:10 Outpatient S[facility] [id number] [facility] 2024-05-10 00:00:00 2024-05-10 00:00:00 Outpatient Visit [facility] [id number] [facility] 2024-04-19 13:13:00 2024-04-19 17:01:00 Emergency X DORIAN LOZOYA [facility] [id number] [facility] 2024-04-19 13:13:00 2024-04-19 17:01:00 Emergency Dorian Lozoya [facility] 1.2.840.114 350.1.13.10 4.2.7.2.686 [id number] [facility] 2024-03-22 16:54:59 2024-03-22 16:54:59 Outpatient S[facility] [id number] [facility] 2024-03-22 00:00:00 2024-03-22 00:00:00 Outpatient Visit [facility] [id number] [facility] 2023-09-16 00:00:00 2024-03-09 02:05:43 Mobile Device Encounter Olamide Fraga [facility] ..840.114 350.1.13.10 4.2.7.2.686 [id number] [facility] 2024-01-05 09:02:36 2024-01-05 09:02:36 Outpatient S[facility] [id number] [facility] 2024-01-02 14:31:28 2024-01-02 14:31:28 Outpatient SFA [facility] [id number] [facility] 2023-11-28 00:00:00 2023-11-28 00:00:00 Patient Secure Msg Doctor Unassigned, [place] [facility] 1.2840.114 350.1.13.10 4.2.7.2.686 [id number] [facility] 2023-11-21 00:00:00 2023-11-21 00:00:00 Telephone Kory Cruz [facility] 1.2840.114 350.1.13.10 4.2.7.2.686 [id number] 134 [id number] [facility] 2023-11-15 00:00:00 2023-11-15 00:00:00 Telephone Kory Cruz [facility] 1.2840.114 350.1.13.10 4.2.7.2.686 [id number] 134 [id number] [facility] 2023-10-10 10:30:00 2023-10-10 12:02:47 Outpatient R KORY CRUZ [facility] [id number] [facility] 2023-10-10 10:30:00 2023-10-10 12:02:47 Routine Visit Kory Cruz [facility] 1.2840.114 350.1.13.10 4.2.7.2.686 [id number] 134 [id number] [facility] 2023-10-10 00:00:00 2023-10-10 00:00:00 Patient Secure Msg Doctor Unassigned, [place] [facility] 1.2840.114 350.1.13.10 4.2.7.2.686 [id number] [facility] 2023-10-09 00:00:00 2023-10-09 00:00:00 Telephone Kory Cruz [facility] 1.2840.114 350.1.13.10 4.2.7.2.686 [id number] [facility] 2023-10-09 00:00:00 2023-10-09 00:00:00 Patient Secure Msg Doctor Unassigned, [place] [facility] 1..840.114 350.1.13.10 4.2.7.2.686 [id number] [facility] 2023-09-25 01:05:00 2023-09-27 12:55:00 Inpatient X KORY CRUZ [facility] [id number] [facility] 2023-09-25 01:05:00 2023-09-27 12:55:00 Hospital Encounter Kory Cruz [facility] 1..840.114 350.1.13.10 4.2.7.2.686 [id number] [facility] 2023-09-25 16:00:00 2023-09-25 16:00:00 Outpatient R KORY CRUZ [facility] [id number] [facility] 2023-09-25 03:00:00 2023-09-25 08:52:00 Anesthesia Event Xenia Angel Michelle [facility] 1..840.114 350.1.13.10 4.2.7.2.686 [id number] [facility] 2023-09-24 00:00:00 2023-09-24 00:00:00 Telephone [facility] 1..840.114 350.1.13.10 4.2.7.2.686 [id number] [facility] 2023-09-19 00:10:00 2023-09-19 00:10:00 Outpatient P CANO-EVER S, ARIELA CANO-EVER S, ARIELA [facility] [id number] [facility] 2023-09-18 15:15:00 2023-09-18 16:21:53 Outpatient R KORY CRUZ [facility] [id number] [facility] 2023-09-18 15:15:00 2023-09-18 16:21:53 Routine Visit Kory Cruz [facility] 1.2.840.114 350.1.13.10 4.2.7.2.686 [id number] [facility] 2023-09-16 01:28:00 2023-09-16 03:45:00 Outpatient X CANO-EVER S, ARIELA [facility] [id number] 2023-09-16 01:28:00 2023-09-16 03:45:00 Emergency Cano-Ever s, Ariela [facility] 1.2.840.114 350.1.13.10 4.2.7.2.686 [id number] [facility] 2023-09-11 16:15:00 2023-09-11 16:50:18 Outpatient R KORY CRUZ [facility] [id number] [facility] 2023-09-11 16:15:00 2023-09-11 16:50:18 Routine Visit Kory Cruz [facility] 1.2.840.114 350.1.13.10 4.2.7.2.686 [id number] [facility] 2023-09-11 14:45:00 2023-09-11 15:00:00 Clutch Inspector Visit 2, Adc Lab Kory Cruz [facility] BUILD[facility] 1.2.840.114 350.1.13.10 4.2.7.2.686 [id number] [facility] 2023-09-11 11:00:00 2023-09-11 11:00:00 Outpatient R KORY CRUZ [facility] [id number] [facility] 2023-09-09 16:00:00 2023-09-09 16:00:00 Outpatient R KORY CRUZ [facility] [id number] [facility] 2023-09-08 00:00:00 2023-09-08 00:00:00 Telephone [facility] 1.84.114 350.1.13.10 4.2.7.2.686 [id number] [facility] 2023-09-07 20:22:00 2023-09-07 22:06:00 Outpatient X MARY AVINA [facility] [id number] [facility] 2023-09-07 20:22:00 2023-09-07 22:06:00 Emergency AdumMary [facility] 1.84.114 350.1.13.10 4.2.7.2.686 [id number] [facility] 2023-09-03 15:18:00 2023-09-03 17:33:00 Outpatient X KORY CRUZ [facility] [id number] [facility] 2023-09-03 15:18:00 2023-09-03 17:33:00 Emergency Kory Cruz [facility] .84.114 350.1.13.10 4.2.7.2.686 [id number] [facility] 2023-09-02 14:23:00 2023-09-02 15:18:00 Outpatient P MARY AIVNA [facility] [id number] [facility] 2023-09-02 14:23:00 2023-09-02 15:18:00 [facility] 1.84.114 350.1.13.10 4.2.7.2.686 [id number] [facility] 2023-08-28 10:45:00 2023-08-28 11:28:38 Outpatient R KORY CRUZ [facility] [id number] [facility] 2023-08-28 10:45:00 2023-08-28 11:28:38 Routine Visit Kory Cruz [facility] 1.0.114 350.1.13.10 4.2.7.2.686 [id number] [facility] 2023-08-20 15:22:00 2023-08-22 16:30:00 Outpatient X [facility] [id number] [facility] 2023-08-20 15:22:00 2023-08-22 16:30:00 Emergency Nacho Quintero [facility] [place], [facility] 1..114 350.1.13.10 4.2.7.2.686 [id number] [facility] 2023-08-22 13:00:00 2023-08-22 13:54:45 Clutch Inspector Visit 2, [facility] Kristal Chung [facility] 1..114 350.1.13.10 4.2.7.2.686 [id number] [facility] 2023-08-21 20:00:01 2023-08-21 20:00:01 Anesthesia Event Xenia Angel [facility] 1..114 350.1.13.10 4.2.7.2.686 [id number] [facility] 2023-08-18 14:15:00 2023-08-18 14:15:00 Outpatient KORY HORVATH [facility] [id number] [facility] 2023-08-08 13:45:00 2023-08-08 13:45:00 Outpatient R [facility] [id number] [facility] 2023-08-06 00:00:00 2023-08-06 00:00:00 Patient Secure Msg Doctor Unassigned, [place] [facility] 1.0114 350.1.13.10 4.2.7.2.686 [id number] [facility] 2023-08-04 10:00:00 2023-08-04 11:00:40 Outpatient R KORY CRUZ [facility] [id number] [facility] 2023-08-04 10:00:00 2023-08-04 11:00:40 Initial Visit Kory Cruz [facility] 1..114 350.1.13.10 4.2.7.2.686 [id number] [facility] 2023-07-29 03:10:00 2023-07-29 06:05:00 Outpatient X CANO-EVER S, ARIELA CANO-EVER S, ARIELA [facility] [id number] [facility] 2023-07-29 03:10:00 2023-07-29 06:05:00 Emergency Cano-Ever s, Ariela [facility] 1..114 350.1.13.10 4.2.7.2.686 [id number] [facility] 2023-07-27 00:00:00 2023-07-27 00:00:00 Nurse Triage Nurse, Suy[facility] 1.114 350.1.13.10 4.2.7.2.686 [id number] [facility] 2023-06-21 00:00:00 2023-06-21 00:00:00 Krystal Ortega [facility] SUPERVISOR [facility] MATERNAL & [facility]ILD [facility] 1.2.840.114 350.1.13.10 4.2.7.2.686 [id number] [facility] 2023-06-14 12:51:00 2023-06-14 15:30:00 Outpatient X ANTHONY KORY [facility] [id number] [facility] 2023-06-14 12:51:00 2023-06-14 15:30:00 Emergency Kory Cruz [facility] 1.2.840.114 350.1.13.10 4.2.7.2.686 [id number] [facility] 2023-06-14 00:00:00 2023-06-14 00:00:00 Nurse Triage Heidi Christianson [facility] 1.2.840.114 350.1.13.10 4.2.7.2.686 [id number] [facility] 2023-06-14 00:00:00 2023-06-14 00:00:00 Orders Only Doctor Unassigned, [place] [facility] 1.2.840.114 350.1.13.10 4.2.7.2.686 [id number] [facility] 2023-06-03 00:00:00 2023-06-03 00:00:00 Telephone Huy Mendoza [facility] [employer] [employer] SUPERVISOR [facility] 1.2.840.114 350.1.13.10 4.2.7.2.686 [id number] [facility] 2023-06-02 15:30:00 2023-06-02 15:30:00 Outpatient R HUY MENDOZA [facility] [id number] [facility] 2023-05-30 00:00:00 2023-05-30 00:00:00 Case Management Krystal Low [facility] [employer] [employer] SUPERVIS[employer] [facility] MATERNAL & CHILD [facility] 1.2.840.114 350.1.13.10 4.2.7.2.686 [id number] [facility] 2023-05-28 14:00:00 2023-05-28 15:19:04 Outpatient P SHELLEY SANCHEZ [facility] [id number] [facility] 2023-05-28 14:00:00 2023-05-28 15:19:04 Clutch Inspector Visit Ultrasound, [facility] Shelley Sanchez [facility] [employer]IOR [employer]ODUCTION SUPERVISOR [facility]ILD [facility] 1.2.840.114 350.1.13.10 4.2.7.2.686 [id number] [facility] 2023-05-21 00:00:00 2023-05-21 00:00:00 Krystal Ortega [facility] SENIOR PRODUCTION SUPERVISOR [facility] CHILD [facility] 1.2.840.114 350.1.13.10 4.2.7.2.686 [id number] [facility] 2023-05-21 00:00:00 2023-05-21 00:00:00 Krystal Coffey [facility] SENIOR PRODUCTION SUPERVISOR [facility] [place] [facility] 1.2.840.114 350.1.13.10 4.2.7.2.686 [id number] [facility] 2023-05-20 15:30:00 2023-05-20 15:30:00 Outpatient R HUY MENDOZA [facility] [id number] [facility] 2023-05-16 09:45:00 2023-05-16 09:45:00 Outpatient R KRYSTAL LOW [facility] [id number] [facility] 2023-05-03 17:42:00 2023-05-03 18:57:00 Outpatient X CANO-EVER S, ARIELA CANO-EVER S, ARIELA [facility] [id number] [facility] 2023-05-03 17:42:00 2023-05-03 18:57:00 Emergency Cano-Ever s, Ariela [facility] 1.2.840.114 350.1.13.10 4.2.7.2.686 [id number] [facility] 2023-04-30 10:45:00 2023-04-30 10:45:00 Outpatient R KRYSTAL LOW [facility] [id number] [facility] 2023-04-18 12:18:00 2023-04-18 16:05:00 Outpatient X CANO-EVER S, ARIELA CANO-EVER S, ARIELA [facility] [id number] [facility] 2023-04-18 12:18:00 2023-04-18 16:05:00 Emergency Cano-Ever s, Ariela [facility] 1.2.840.114 350.1.13.10 4.2.7.2.686 [id number] [facility] 2023-04-17 00:00:00 2023-04-17 00:00:00 Telephone Krystal Low [facility] [employer] [facility] 1.2.840.114 350.1.13.10 4.2.7.2.686 [id number] [facility] 2023-04-17 00:00:00 2023-04-17 00:00:00 Patient Secure Msg Krystal Low [facility] [employer] [facility] 1.2.840.114 350.1.13.10 4.2.7.2.686 [id number] 107 [id number] [facility] 2023-04-08 12:45:00 2023-04-08 12:45:00 Outpatient R KRYSTAL LOW [facility] [id number] [facility] 2023-04-07 00:00:00 2023-04-07 00:00:00 Case Management Krystal Low [facility] [employer]IOR [employer]ODUCTION SUPERVISOR [facility] 1.0.114 350.1.13.10 4.2.7.2.686 [id number] [facility] 2023-04-03 10:30:00 2023-04-03 10:30:00 Outpatient R KRYSTAL LOW [facility] [id number] [facility] 2023-04-03 00:00:00 2023-04-03 00:00:00 Refill Krystal Low [facility] SENIOR PRODUCTION SUPERVISOR [facility] 1.0.114 350.1.13.10 4.2.7.2.686 [id number] [facility] 2023-04-02 08:45:00 2023-04-02 09:15:48 Outpatient R KRYSTAL LOW [facility] [id number] [facility] 2023-04-02 08:45:00 2023-04-02 09:15:48 Routine Visit Krystal Low [facility] [employer]IOR [employer] SUPERVIS[employer] [facility] 1..114 350.1.13.10 4.2.7.2.686 [id number] [facility] 2023-03-21 00:00:00 2023-03-21 00:00:00 Case Management Krystal Low [facility] SENIOR PRODUCTION SUPERVISOR [facility] 1..114 350.1.13.10 4.2.7.2.686 [id number] 107 [id number] [facility] 2023-03-21 00:00:00 2023-03-21 00:00:00 Orders Only Doctor Unassigned, [place] [facility] 1..114 350.1.13.10 4.2.7.2.686 [id number] [id number] [facility] 2023-03-19 00:00:00 2023-03-19 00:00:00 Telephone Krystal Low [facility] SENIOR PRODUCTION SUPERVISOR [facility] 1.2.840.114 350.1.13.10 4.2.7.2.686 [id number] [facility] 2023-03-11 12:45:00 2023-03-11 13:26:33 Outpatient R KRYSTAL LOW [facility] [id number] [facility] 2023-03-11 12:45:00 2023-03-11 13:26:33 Routine Visit Krystal Low [facility] SENIOR PRODUCTION SUPERVISOR [facility] 1.840.114 350.1.13.10 4.2.7.2.686 [id number] [facility] 2023-03-11 00:00:00 2023-03-11 00:00:00 Orders Only Doctor Unassigned, [place] [facility] 1.840.114 350.1.13.10 4.2.7.2.686 [id number] [id number] [facility] 2023-02-18 00:00:00 2023-02-18 00:00:00 Telephone Krystal Low [facility] SENIOR PRODUCTION SUPERVISOR [facility] 1.840.114 350.1.13.10 4.2.7.2.686 [id number] [facility] 2023-02-14 00:00:00 2023-02-14 00:00:00 Case Management Krystal Low [facility] SENIOR PRODUCTION SUPERVISOR [facility] 1.2.840.114 350.1.13.10 4.2.7.2.686 [id number] [facility] 2023-02-14 00:00:00 2023-02-14 00:00:00 Telephone Destinylobo Krystal Sears [facility] SENIOR PRODUCTION SUPERVISOR [facility] 1.2.840.114 350.1.13.10 4.2.7.2.686 [id number] [facility] 2023-02-11 13:00:00 2023-02-11 14:23:32 Initial Visit Destinylobo Krystal Sears [facility] SENIOR PRODUCTION SUPERVISOR [facility] 1.2.840.114 350.1.13.10 4.2.7.2.686 [id number] [facility] 2023-02-11 12:30:00 2023-02-11 13:21:27 [facility] [id number] [facility] 2023-02-11 00:00:00 2023-02-11 00:00:00 Orders Only Doctor Unassigned, [place] [facility] 1.2.840.114 350.1.13.10 4.2.7.2.686 [id number] [id number] [facility] 2023-02-10 08:30:00 2023-02-10 08:30:00 Outpatient R HUY MENDOZA [facility] [id number] [facility] 2022-08-02 04:26:00 2022-08-02 11:34:00 Emergency LEEROY GALLO [facility] [address] [facility] 2022-01-16 21:05:00 2022-01-17 00:11:00 Emergency X YVONNE SIDDIQI [facility] ERT [id number] [facility] 2022-01-16 21:05:00 2022-01-17 00:11:00 Emergency Yvonne Siddiqi [facility] 1.2.840.114 350.1.13.10 4.2.7.2.686 [id number] [facility] 2021-07-25 00:00:00 2021-07-25 00:00:00 Patient Secure Msg Doctor Unassigned, [place] [facility] 1.2.840.114 350.1.13.10 4.2.7.2.686 [id number] [facility] 2021-04-19 13:15:00 2021-04-19 13:15:00 Outpatient HUY FRIAS [facility] [id number] [facility] 2021-02-06 00:00:00 2021-02-06 00:00:00 Case Management Simi Jenniferalee Rios 1.2.840.114 350.1.13.10 4.2.7.2.686 [id number] [facility] 2021-02-06 00:00:00 2021-02-06 00:00:00 Case Management Jennifer Belcher 1.2.840.114 350.1.13.10 4.2.7.2.686 [id number] 2020-12-12 00:00:00 2020-12-12 00:00:00 Patient Outreach Broderick Melton [facility] 1.2.840.114 350.1.13.10 4.2.7.2.686 [id number] [facility] 2020-12-12 00:00:00 2020-12-12 00:00:00 Patient Outreach Broderick Melton [facility] 1.2.840.114 350.1.13.10 4.2.7.2.686 [id number] 2020-02-28 15:00:00 2020-02-28 15:00:00 Outpatient JOSY ALANIS [facility] [id number] [facility] 2019-12-18 17:30:00 2019-12-18 17:30:00 Outpatient KRISSY MAYFIELD [facility] [id number] [facility] 2019-11-18 14:30:00 2019-11-18 14:30:00 Outpatient R JOSY CHAUDHARY [facility] [id number] [facility] 2019-05-27 14:41:30 2019-05-27 15:54:53 Routine Visit Josy Chaudhary [facility] Profess[facility]al [facility] 1.2.840.114 350.1.13.10 4.2.7.2.686 [id number] [facility] 2019-05-27 14:41:30 2019-05-27 15:54:53 [facility] 1.2840.114 350.1.13.10 4.2.7.2.686 [id number] 2019-05-17 17:15:00 2019-05-17 23:59:00 Hospital Encounter Josy Chaudhary [facility] 1.2.840.114 350.1.13.10 4.2.7.2.686 [id number] [facility] 2019-05-17 17:21:30 2019-05-17 17:36:30 Clutch Inspector Visit 1, Adc Lab Kory Cruz [facility] 1.2.840.114 350.1.13.10 4.2.7.2.686 [id number] [facility] 2019-05-17 15:55:01 2019-05-17 16:56:25 Office Visit Josy Chaudhary [facility] Building 1.2.840.114 350.1.13.10 4.2.7.2.686 [id number] [facility] 2019-05-17 15:55:01 2019-05-17 16:56:25 Office Visit Josy Chaudhary [facility] Professio nal Building 1.2.840.114 350.1.13.10 4.2.7.2.686 [id number] 2019-05-17 00:00:00 2019-05-17 00:00:00 Orders Only Doctor Unassigned, [place] [facility] 1.2.840.114 350.1.13.10 4.2.7.2.686 [id number] [id number] [facility] 2019-05-05 00:00:00 2019-05-05 00:00:00 Telephone [facility] 1.2.840.114 350.1.13.10 4.2.7.2.686 [id number] 134 [id number] [facility] 2019-05-04 15:07:01 2019-05-04 15:22:01 Clutch Inspector Visit 1, Adc Lab Kory Cruz [facility] 1.2.840.114 350.1.13.10 4.2.7.2.686 [id number] [facility] 2019-05-04 12:48:00 2019-05-04 14:57:00 Hospital Encounter Kory Cruz [facility] 1.2.840.114 350.1.13.10 4.2.7.2.686 [id number] [facility] 2019-05-04 00:00:00 2019-05-04 00:00:00 Telephone [facility] 1.2.840.114 350.1.13.10 4.2.7.2.686 [id number] [facility] 2019-05-04 00:00:00 2019-05-04 00:00:00 Orders Only Doctor Unassigned, [place] [facility] 1.2.840.114 350.1.13.10 4.2.7.2.686 [id number] [facility] 2019-04-30 00:00:00 2019-04-30 00:00:00 Case Management Josy Chaudhary [facility] 1.2.840.114 350.1.13.10 4.2.7.2.686 [id number] [facility] 2019-04-29 15:40:17 2019-04-29 16:18:51 Routine Visit Kory Cruz [facility] 1.2.840.114 350.1.13.10 4.2.7.2.686 [id number] [facility] Results Test Description Test Time Test Comments Results Result Co mments Source [facility] BRYSON - [id number] 09:53:48* Test Item Value Reference Range Interpretation Comme nts RPR (Qualitative) (test code = 77704-3) Nonreactive Nonreactive Lab Interpretation (test cod e = 65426-1) Normal [facility]RHO (D) IMMUNE [id number] 16:36:33* Test Item Value Reference Range Interpretation Comme nts RHIG CANDIDATE? (test code = 5188) No- see comment Patient is not a candidate for RhIg- Patient is Rh Positive.Performed at [facility] Laboratory Services - ADC Blood [id number] [place] [id number] Free: [phone] No. [id number] [facility] CenterHepatitis B Surface [id number] 12:56:12 * Test Item Value Reference Range Interpretation Comme nts HBsAg Semi-Quantitative (fredy t code = 5195-3) 0.10 Negative [facility]HIV 1/2 Ag-Ab with [id number] 09:08:51* Test Item Value Reference Range Interpretation Comme nts HIV Semi-quantitative (test code = 43969-3) 0.18 Negative TIERRA (test code = TIERRA) Non-reactive for HIV-1 antigen and HIV-1/HIV-2 antibodies. ?No laboratory evidence of HIV infection. ?Repeat in 2-4 weeks if acute HIV infection is suspected. [facility] CenterCentral Neuraxial [id number] 09:00:00 Xenia Angel MD ? ? 09/25/2023 [...] air and catheter ?Guidance with: landmark technique}Epidural/Spinal [place] and/or Catheter: ?Epidural/Spinal Kit: BBun ?Needle Type: [...] mastisol then tegaderm and tape. No apparent complications.[facility] CenterType and Screen - ONCE [id number] 08:11:00* Test Item Value Reference Range Interpretation Comme nts ABO & RH (test code = 20) O Positive IAT (test code = 1185) Negative [facility] CenterPOCT Urinalysis w/o Specific Mmdjoik5255-02-18 22:26:00* Test Item Value Reference Range Interpretation [...] = 3257) n/a Negative - Negati ve [facility] CenterComp. Metabolic Panel (91545)2023-09-16 10:09:50* Test Item Value Reference Range Interpretation Comme nts NA (test code = 2019283390) 135 mmol/L 135-145 K (test code = 8496794266) 3.6 mmol/L 3.5-5.0 CL (test code = 0882501945) 105 mmol/L 98-108 CO2 TOTAL (test code = 3192367368) 25 mmol/L 23-31 AGAP (test code = 2470420200) 5 2-16 BUN (test code = 0613476436) 4 mg/dL 7-23 L GLUCOSE (test code = 5925011484) 88 mg/dL 70-110 CREATININE (test code = 9825982200) 0.49 mg/dL 0.50-1.04 L TOTAL BILI (test code = 2633587954) 1.1 mg/dL 0.1-1.1 CALCIUM (test code = 9218622853) 8.6 mg/dL 8.6-10.6 T PROTEIN (test code = 6288638226) 6.7 g/dL 6.3-8.2 ALBUMIN (test code = 3409516335) 3.3 g/dL 3.5-5.0 L ALK PHOS (test code = 6777089600) 131 U/L 34-122 H ALTv (test code = 1742-6) 17 U/L 5-35 AST(SGOT) (test code = 6551271178) 25 U/L 13-40 eGFR (test code = 52003-5) 135.2 mL/min/1.73m2 CKD-EPI eGFR (2020). Assuming creatinine has been stable day-to-day for at least three months, the eGFR indicates Category G1 (>= 90 mL/min/1.73 m2) Lab Interpretation (test code = 78343-5) [facility] Bhwc0332-69-85 09:36:47* Test Item Value Reference Range Interpretation Comme nts WBC (test code = 6690-2) 6.44 See_Comment [Automated [employer]] The system which generated this result transmitted reference range: 4.30 - 11.10 10*3/?L. The reference range was not used to interpret this result as normal/abnormal. RBC (test code = 789-8) 3.72 See_Comment L [Automated [employer] ge] The system which generated this result [...] g/dL 31.6-35.1 L RDW-SD (test code = 64354-1) 47.0 fL 39.0-49.9 RDW-CV (test code = 788-0) 17.6 % 12.0-15.5 H PLT (test code = 777-3) 184 See_Comment [Automated messa ge] The system which generated this result transmitted reference range: 166 - 358 10*3/?L. The reference range was not used to interpret this result as normal/abnormal. MPV (test code = 41600-4) 10.1 fL 9.5-12.9 NRBC/100 WBC (test code = 7370665318) 0.0 See_Comment [Automated [employer]age] The system which generated this result transmitted reference range: 0.0 - 10.0 /100 WBCs. The reference range was not used to interpret this result as normal/abnormal. NRBC x10^3 (test code = 4286355312) See_Comment [Automated [employer] ge] The system which generated this result transmitted reference range: 10*3/?L. The reference range was not used to interpret this result as normal/abnormal. GRAN MAT (NEUT) % (test code = 770-8) 66.7 % IMM GRAN % (test code = 8600147343) 0.80 % LYMPH % (test code = 736-9) 24.1 % MONO % (test code = 5905-5) 6.5 % EOS % (test code = 713-8) 1.6 % BASO % (test code = 706-2) 0.3 % GRAN MAT x10^3(ANC) (test code = 9460278049) 4.30 10*3/uL 1.88-7.09 IMM GRAN x10^3 (test code = 6696894199) 0.05 10*3/uL 0.00-0.06 LYMPH x10^3 (test code = 731-0) 1.55 10*3/uL 1.32-3.29 MONO x10^3 (test code = 742-7) 0.42 10*3/uL 0.33-0.92 EOS x10^3 (test code = 711-2) 0.10 10*3/uL 0.03-0.39 BASO x10^3 (test code = 704-7) 0.01-0.07 Lab Interpretation (test code = 22740-1) Abnormal [facility] Urinalysis w/o Specific Cnsctuz0610-40-51 22:18:00* Test Item Value Reference Range Interpretation [...] = 3257) n/a Negative - Negati ve [facility] CenterPOCT URINALYSIS W/O SPECIFIC [id number] 17:06:00* Test Item Value Reference Range Interpretation [...] = 3257) n/a Negative - Negati ve [facility] CenterVZV ANTIBODY [id number] 15:22:41* Test Item Value Reference Range Interpretation Comme [facility] VZV IgG antibody (test code = 21799-5) Negative Negative TIERRA (test code = TIERRA) Positive - Indicat es the patient was exposed to VZV through infection or vaccination.Negative - Indicates the patient could be susceptible to VZV infection.Equivocal - A second specimen should be sent for testing. [facility] CenterRUBELLA SCREEN [id number] 15:22:41* Test Item Value Reference Range Interpretation Comme [facility] Rubella screen IgG (test code = 9270438610) Positive Negative TIERRA (test code = TIERRA) Positive - Indicat es the patient was exposed to Rubella through infection or vaccination.Negative - Indicates the patient could be susceptible to Rubella infection.Equivocal - A second specimen should be sent. [facility] CenterSYPHILIS IGG/[id number] 15:21:40* Test Item Value Reference Range Interpretation Comme [facility] Syphilis IgG/IgM (test code = 81845-8) Non-reactive Non-reactive TIERRA (test code = TIERRA) Non-reactive - No serologic evidence of T. pallidum infection. Cannot exclude incubating or early syphilis. Submit a second specimen in 2-4 weeks if syphilis is clinically suspected. Equivocal - Further testing to follow. Reactive - Further testing to follow. Lab Interpretation (test code = 93835-1) Normal [facility] CenterPOCT GLUCOSE (AUTOMATED)2023-08-22 01:48:28* Test Item Value Reference Range Interpretation Comme [facility] POCT GLU (test code = 6831569115) 133 mg/dL 70-110 H Lab Interpretation (test cod e = 42220-5) Abnormal [facility] CenterTransthoracic echo (TTE)2023-08-21 20:30:27* Test Item Value Reference Range Interpretation Comme [facility] Height (test code = 6245464613) 65 in Weight (test code = 9906988559) 219 lbs Systolic BP (test code = 5863553321) 106 mmHg Diastolic BP (test code = 4844576913) 60 mmHg Heart Rate (test code = 9869735641) 90 bpm LVOT stroke volume (test code = 3745681104) 55.30 cm3 EF(Teich) (test code = 3866127075) 74.90 % LVIDD (test code = 0671287626) 5.20 cm LVIDS (test code = 0055194874) 2.90 cm Left Ventricular End Systolic Volume by Teichholz Method (test code = 0844703) 32.2 mL Left Ventricular End Diastolic Volume by Teichholz Method (test code = 5904536) 128.3 mL IVS (test code = 3130883280) 0.66 cm LVPWD (test code = 7856330003) 1.10 cm LVOT diameter (test code = 2690902736) 1.86 cm LVOT area (test code = 2560917213) 2.70 cm2 FS (test code = 1580340507) 44 % MV Peak E Lakshmi (test code = 1767751692) 97.3 cm/s MV Peak A Lakshmi (test code = 3339318585) 80.6 cm/s E/A ratio (test code = 5486060115) 1.21 ratio E wave decelartion time (test code = 5245849568) 0.19 s MV E/e' septal (test code = 4976853887) 11.6 cm/s LA Volume Index (BP) (test code = 2115023176) 37.1 mL/m2 LA volume (BP) (test code = 2409718142) 76.3 mL LVOT peak lakshmi (test code = 1938456123) 108.4 cm/s LVOT mn grad (test code = 5277999632) 2.5 mmHg BSA (test code = 2378476718) 2.06 m2 LA size (test code = 0656444486) 4.0 cm LAV(MOD-sp2) (test code = 6892753263) 54.20 mL LAV(MOD-sp4) (test code = 0826480628) 82.70 mL Tapse (test code = 0204123336) 2.35 cm AV LVOT peak gradient (test code = 8748307333) 4.7 mmHg LVOT peak VTI (test code = 2451970786) 20.3 cm LV V1 mean (test code = 9244610922) 74.60 cm/s MV Prop V (test code = 0965881694) 70.10 cm/s Ao root diam (test code = 8115418139) 3.60 cm Aortic root (test code = 4214301384) 3.6 cm Ao root annulus (test code = 4671639177) 3.6 cm PW (test code = 0099529138) 1.10 cm 0.6-1.1 EF - 2D (test code = 70944632) 74.90 % Interventricular Septum Diastolic Thickness by 2D (test code = 1580155) 0.66 cm Aortic valve mean velocity (test code = 6747968585) 123.5 cm/s Ao peak lakshmi (test code = 4739292445) 177.8 cm/s Ao VTI (test code = 3009669206) 34.6 cm AV area by cont VTI (test code = 4408306870) 1.6 cm2 AV area peak lakshmi (test code = 3400287083) 1.7 cm2 Ao max PG (test code = 0703262090) 12.60 mm[Hg] AV peak gradient (test code = 4605745932) 12.6 mmHg AV valve area (test code = 9869575870) 1.60 cm2 AV mean gradient (test code = 6991516117) 6.5 mmHg MV mean gradient (test code = 9432974324) 1.45 mmHg MV peak gradient (test code = 7525517987) 3.0 mmHg MV pk lakshmi (test code = 3057797398) 86.1 cm/s MV valve area by continuity eq (test code = 6836461253) 2.70 cm2 MV VTI (test code = 4062330506) 20.5 cm MV V2 mean (test code = 9017483818) 56.30 cm/s Radiology Study observation (narrative) (test code = 37104-6) TIERRA (test code = TIERRA) ?Left?Ventricle: Left ventricle size is normal. Increased wall thickness. There is concentric remodeling. Normal wall motion. Hyperdynamic systolic function with a visually estimated EF of 65 - 70%. Normal diastolic function. ?Right?Ventricle: Right ventricle size is normal. Normal systolic function. TAPSE is 2.35 cm. Roscoe Cuellar, [facility] – TULSAardiovascular Medicine FellowSchuyler Memorial Hospital VentricleLeft ventricle size is normal. Increased [...] apical, parasternal and subcostal views were obtained. [facility] CenterTHYROID STIMULATING [id number] 17:48:00 * Test Item Value Reference Range Interpretation Comme nts TSH (test code = 9686957648) 0.51 See_Comment [Automated messa ge] The system which generated this result transmitted reference range: 0.45 - 4.70 mIU/L. The reference range was not used to interpret this result as normal/abnormal. Lab Interpretation (test code = 27036-0) Normal [facility] METABOLIC PANEL (NA, K, CL, CO2, GLUCOSE, BUN, CREATININE, CA)2023-08-21 17:14:33* Test Item Value Reference Range Interpretation Comme [facility] NA (test code = 5906956927) 132 mmol/L 135-145 L K (test code = 3668091562) 4.0 mmol/L 3.5-5.0 CL (test code = 6772271889) 106 mmol/L 98-108 CO2 TOTAL (test code = 7908803254) 17 mmol/L 23-31 L AGAP (test code = 7934977053) 9 2-16 BUN (test code = 8218206194) 5 mg/dL 7-23 L GLUCOSE (test code = 8279165917) 75 mg/dL 70-110 CREATININE (test code = 9442313665) 0.44 mg/dL 0.50-1.04 L CALCIUM (test code = 2673731045) 8.4 mg/dL 8.6-10.6 L eGFR (test code = 82556-7) 138.7 mL/min/1.73m2 CKD-EPI eGFR (2020). Assuming creatinine has been stable day-to-day for at least three months, the eGFR indicates Category G1 (>= 90 mL/min/1.73 m2) Lab Interpretation (test code = 08231-7) Abnormal [facility] CenterHIV 1/2 AG-AB WITH [id number] 15:05:53* Test Item Value Reference Range Interpretation Comme [facility] HIV Semi-quantitative (test code = 79787-2) 0.11 Negative TIERRA (test code = TIERRA) Non-reactive for HIV-1 antigen and HIV-1/HIV-2 antibodies. ?No laboratory evidence of HIV infection. ?Repeat in 2-4 weeks if acute HIV infection is suspected. [facility] CenterHEPATITIS B SURFACE [id number] 15:01:33 * Test Item Value Reference Range Interpretation Comme nts HBsAg Semi-Quantitative (fredy t code = 5195-3) 0.07 Negative [facility] CenterGLYCOSYLATED HEMOGLOBIN (A1C)2023-08-21 14:26:03* Test Item Value Reference Range Interpretation Comme [facility] HGB A1C (test code = 4548-4) 5.2 % 4.0-5.7 TIERRA (test code = TIERRA) Reference RangesNormal: <5.7%Prediabetes: 5.7 - 6.4%Diabetes: > 6.5% Lab Interpretation (test code = 27273-0) Normal [facility] CenterType and Screen - ONCE Yzdzeuh2343-73-08 13:34:00* Test Item Value Reference Range Interpretation Comme [facility] ABO & RH (test code = 20) O POSITIVE IAT (test code = 1185) Negative [facility] CenterProthrombin Time / [id number] 02:05:48* Test Item Value Reference Range Interpretation Comme [facility] PROTIME PATIENT (test code = 5964-2) [...] the indications. Lab Interpretation (test code = 23680-5) Normal [facility] CenteraPTT2023-11-30 02:05:48* Test Item Value Reference Range Interpretation Comme [facility] APTT Patient (test code = 3173-2) 27 See_Comment [Automated message] The system which generated this result transmitted reference range: 23 - 38 Seconds. The reference range was not used to interpret this result as normal/abnormal. TIERRA (test code = TIERRA) The [facility] patient population mean normal value for aPTT is 30 seconds. Lab Interpretation (test code = 84927-8) Normal [facility] CenterCBC WITH [id number] 01:28:43* Test Item Value Reference Range Interpretation [...] g/dL 31.6-35.1 L RDW-SD (test code = 34337-7) 45.6 fL 39.0-49.9 RDW-CV (test code = 788-0) 17.0 % 12.0-15.5 H PLT (test code = 777-3) 228 See_Comment [Automated messa ge] The system which generated this result transmitted reference range: 166 - 358 10*3/?L. The reference range was not used to interpret this result as normal/abnormal. MPV (test code = 10223-8) 10.4 fL 9.5-12.9 NRBC/100 WBC (test code = 8365929797) 0.2 See_Comment [Automated [employer] ssage] The system which generated this result transmitted reference range: 0.0 - 10.0 /100 WBCs. The reference range was not used to interpret this result as normal/abnormal. NRBC x10^3 (test code = 4273600297) 0.02 See_Comment [Automated messa ge] The system which generated this result transmitted reference range: 10*3/?L. The reference range was not used to interpret this result as normal/abnormal. GRAN MAT (NEUT) % (test code = 770-8) 75.4 % IMM GRAN % (test code = [id number]) 0.90 % LYMPH % (test code = 736-9) 17.6 % MONO % (test code = 5905-5) 4.9 % EOS % (test code = 713-8) 0.9 % BASO % (test code = 706-2) 0.3 % GRAN MAT x10^3(ANC) (test code = [id number]) 6.84 10*3/uL 1.88-7.09 IMM GRAN x10^3 (test code = [id number]) 0.08 10*3/uL 0.00-0.06 H LYMPH x10^3 (test code =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
[2024-06-02] MEDS ORDERED: KETOROLAC 30 MG/ML INJ ONE (05:29)
[2024-06-02] MEDS ORDERED: DIAZEPAM 5 MG TABLET ONE (05:30)
[2024-06-02] MEDS ORDERED: methocarbamoL 750 MG TAB ONE (05:30)
--- NOTE | 2024-06-02 06:45 | EDPHYS ---
Physician Documentation [facility] Name: Arina Valdes Age: 23 yrs Sex: Female : 2000 Arrival Date: 06/02/2024 Time: 05:08 Bed 8 Private MD: ED Physician Nestor Dsouza HPI: 06/02 05:10 This 23 yrs old Female presents to ER via Unassigned with complaints of Low sp4 Back Pain. 05:10 23-year-old female presents with complaint of acute lower back pain worsening from sp4 earlier today. . 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 - Infectious Disease History:: Denies. - Family history:: not pertinent. - Social history:: Smoking status: Reported history of juuling and/or vaping. ROS: 05:10 Constitutional: Negative for fever, chills, and weight loss, Positive lower back pain sp4 05:10 All other systems are negative, Exam: 05:12 Constitutional: This is a well developed, well nourished patient who is awake, alert, sp4 and in no acute distress. Head/Face: Normocephalic, atraumatic. Eyes: Pupils equal round and reactive to light, extra-ocular motions intact. Lids and lashes normal. Conjunctiva and sclera are not injected. Cornea within normal limits. Periorbital areas with no swelling, redness, or edema. ENT: Nares patent. No nasal discharge, no septal abnormalities noted. Tympanic membranes are normal and external auditory canals are clear. Oropharynx with no redness, swelling, or masses, exudates, or evidence of obstruction, uvula midline. Mucous membranes moist. Neck: Trachea midline, no thyromegaly or masses palpated, and no cervical lymphadenopathy. Supple, full range of motion without nuchal rigidity, or vertebral point tenderness. Chest/axilla: Normal chest wall appearance and motion. Nontender with no deformity. No lesions are appreciated. Cardiovascular: Regular rate and rhythm with a normal S1 and S2. No gallops, murmurs, or rubs. Normal PMI, no JVD. No pulse deficits. Respiratory: Lungs have equal breath sounds bilaterally, clear to auscultation and percussion. No rales, rhonchi or wheezes noted. No increased work of breathing, no retractions or nasal flaring. Abdomen/GI: Soft, with normal bowel sounds. No distension or tympany. No guarding or rebound. No evidence of tenderness throughout. Back: No spinal tenderness. No costovertebral tenderness. Skin: Warm, dry with normal turgor. Normal color with no rashes, no lesions, and no evidence of cellulitis. MS/ Extremity: Pulses equal, no cyanosis. Neurovascular intact. Full, normal range of motion. Neuro: Awake and alert, GCS 15, oriented to person, place, time, and situation. Cranial nerves II-XII grossly intact. Motor strength 5/5 in all extremities. Sensory grossly intact. Psych: Awake, alert, with orientation to person, place and time. Behavior, mood, and affect are within normal limits Vital Signs: 05:14 BP 133 / 84; Pulse 85; Resp 18; Temp 98.5; Pulse Ox 96% ; Weight 99.79 kg; Height 5 ft. br2 5 in. ; 05:44 BP 109 / 51; Pulse 103; Resp 16; Temp 16; Pulse Ox 100% on R/A; hb 06:06 BP 109 / 51; Pulse 102; Resp 18; Pulse Ox 100% on R/A; Pain 3/10; br2 06:27 BP 140 / 107; Pulse 86; Resp 16; Pulse Ox 100% on R/A; br2 05:14 Body Mass Index 36.61 (99.79 kg, 165.1 cm) br2 06:06 Pain Scale: Adult br2 [place] Coma Score: 05:12 Eye Response: spontaneous(4). Motor Response: obeys commands(6). Verbal Response: sp4 oriented(5). Total: 15. MDM: 05:12 Patient medically screened. sp4 06/03 03:21 Differential diagnosis: arthritis, strain, fracture, sciatica, contusion, Herniated sp4 disc UTI. Data reviewed: vital signs, nurses notes, EMS record, old medical records. Consideration of Admission/Observation Escalation of care including admission/observation considered. ED course: Pain has improved, patient is stable for discharge home. Administered Medications: 06/02 05:35 Drug: Diazepam PO 5 mg PO once Route: PO; br2 06:06 Follow up: Response: No adverse reaction; Pain is decreased br2 05:36 Drug: Ketorolac IVP 30 mg IVP once Route: IVP; Site: right antecubital; br2 06:06 Follow up: Response: No adverse reaction; Pain is decreased br2 05:36 Drug: Methocarbamol PO 1500 mg PO once Route: PO; br2 06:06 Follow up: Response: No adverse reaction; Pain is decreased br2 Disposition: 06/03 03:22 Chart complete. sp4 Disposition Summary: 06/02/24 06:44 Discharge Ordered Notes: Location: Home sp4 Problem: new sp4 Symptoms: have improved sp4 Condition: Stable sp4 Diagnosis - Low back pain sp4 - Acute exacerbation of chronic back pain sp4 Followup: sp4 - With: Private Physician - When: 7 - 10 days - Reason: Recheck today's complaints Discharge Instructions: - Discharge Summary Sheet sp4 - Acute Back Pain, Adult sp4 Forms: - Work release form iw - Patient Portal Instructions sp4 Prescriptions: - naproxen 500 mg Oral tablet - take 1 tablet ORAL route every 12 hours PRN pain; 30 tablet; Refills: 0, sp4 Product Selection Permitted - Valium 5 mg Oral Tablet - take 1 tablet ORAL route every 8 hours As needed; 20 tablet; Refills: 0, sp4 Product Selection Permitted - methocarbamol 750 mg Oral tablet - take 2 tablets ORAL route 4 times per day for 2 days PRN pain; 60 tablet; sp4 Refills: 0, Product Selection Permitted Signatures: Dispatcher [employer] EDPR Anita Ramires RN RN hb Potepalov, Sergey, MD MD sp4 Kami Liz RN RN br2 Corrections: (The following items were deleted from the chart) 06/02 05:23 05:22 PMHx: UTI; br2 br2 05:23 05:22 PMHx: pre eclampsia; br2 br2 05:23 05:22 PMHx: depressive disorder; br2 br2 05:23 05:22 PMHx: Anxiety; br2 br2 05:23 05:22 PMHx: Heart Murmur; br2 br2 06:39 05:12 Test, Urine+UC.LAB.BRZ ordered. EDMS EDMS
--- NOTE | 2024-06-02 06:45 | ER ---
Nurse's Notes [facility] Name: Arina Valdes Age: 23 yrs Sex: Female : 2000 Arrival Date: 06/02/2024 Time: 05:08 Bed 8 Private MD: Diagnosis: Low back pain;Acute exacerbation of chronic back pain Presentation: 06/02 05:14 Chief complaint: Patient states: pt states she has been having intermittent lower back br2 pain since an epidural (childbirth) in September. pt states she had 2 fall today due to "her legs giving out". pain radiates to left lower extremity. no other injuries. 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 Coronavirus screen: Vaccine status: Patient reports receiving the 2nd dose of the covid vaccine. Ebola Screen: No symptoms or risks identified at this time. Initial Sepsis Screen: Does the patient meet any 2 criteria? No. Patient's initial sepsis screen is negative. Initial Sepsis Screen: Does the patient meet any 2 criteria? No. Patient's initial sepsis screen is negative. Does the patient have a suspected source of infection? No. Patient's initial sepsis screen is negative. Risk Assessment: Do you want to hurt yourself or someone else? Patient reports no desire to harm self or others. Onset of symptoms was June 01, 2024. 05:14 Method Of Arrival: EMS: [facility] br2 05:14 Acuity: [place] 3 br2 Triage Assessment: 05:19 General: Appears in no apparent distress. comfortable. Pain: Complains of pain in back br2 Pain radiates to left leg. 05:38 General: Behavior is calm. br2 BACK JOINER: 05:40 LMP N/A - control method, Not br2 Historical: - Allergies: 05:43 No Known Drug Allergies; hb - PMHx: 05:22 Bipolar disorder; br2 - Immunization history:: Client reports receiving the 2nd dose of the Covid vaccine. - Infectious Disease History:: Denies. - Family history:: not pertinent. - Social history:: Smoking status: Reported history of juuling and/or vaping. Screenin:36 [facility] ED Fall Risk Assessment (Adult) History of falling in the last 3 months, br2 including since admission Yes- fall prone (multiple falls) (3 pts) Confusion or Disorientation No (0 pts) Intoxicated or Sedated No (0 pts) Impaired Gait No (0 pts) Mobility Assist Device Used No (0 pt) Altered Elimination No (0 pt) Score/Fall Risk Level 0 - 2 = Low Risk Oriented to surroundings. Abuse screen: Denies threats or abuse. Nutritional screening: No deficits noted. Tuberculosis screening: No symptoms or risk factors identified. Assessment: 05:44 General: Appears in no apparent distress. Behavior is calm, cooperative. Pain: Pain hb currently is 5 out of 10 on a pain scale. Neuro: Level of Consciousness is awake, alert, obeys commands, Oriented to person, place, time, situation. Cardiovascular: Patient's skin is warm and dry. Respiratory: Respiratory effort is even, unlabored, Respiratory pattern is regular, symmetrical. GI: No signs and/or symptoms were reported involving the gastrointestinal system. : No signs and/or symptoms were reported regarding the genitourinary system. EENT: No signs and/or symptoms were reported regarding the EENT system. Derm: Skin is pink, warm \\T\\ dry. Musculoskeletal: Reports low back pain. 06:30 Reassessment: Patient appears in no apparent distress at this time. Patient and/or hb family updated on plan of care and expected duration. Pain level reassessed. Patient is alert, oriented x 3, equal unlabored respirations, skin warm/dry/pink. Vital Signs: 05:14 BP 133 / 84; Pulse 85; Resp 18; Temp 98.5; Pulse Ox 96% ; Weight 99.79 kg; Height 5 ft. br2 5 in. ; 05:44 BP 109 / 51; Pulse 103; Resp 16; Temp 16; Pulse Ox 100% on R/A; hb 06:06 BP 109 / 51; Pulse 102; Resp 18; Pulse Ox 100% on R/A; Pain 3/10; br2 06:27 BP 140 / 107; Pulse 86; Resp 16; Pulse Ox 100% on R/A; br2 05:14 Body Mass Index 36.61 (99.79 kg, 165.1 cm) br2 06:06 Pain Scale: Adult br2 [place] Coma Score: 05:12 Eye Response: spontaneous(4). Motor Response: obeys commands(6). Verbal Response: sp4 oriented(5). Total: 15. ED Course: 05:09 Patient arrived in ED. [email or web address] 05:09 Nestor Dsouza MD is Attending Physician. sp4 05:14 Kami Liz RN is Primary Nurse. br2 05:19 Triage completed. br2 05:20 Maintain EMS IV. Dressing intact. Site clean \\T\\ dry. Gauge \\T\\ site: 20g right ac. br 2 05:23 Arm band placed on left wrist. br2 05:36 Patient has correct armband on for positive identification. Bed in low position. Side br2 rails up X 1. Provided Education on: treatment plan. 05:38 No provider procedures requiring assistance completed. br2 07:08 Primary Nurse role handed off by Kami Liz RN iw 07:08 Olga Sinclair RN is Primary Nurse. iw Administered Medications: 05:35 Drug: Diazepam PO 5 mg PO once Route: PO; br2 06:06 Follow up: Response: No adverse reaction; Pain is decreased br2 05:36 Drug: Ketorolac IVP 30 mg IVP once Route: IVP; Site: right antecubital; br2 06:06 Follow up: Response: No adverse reaction; Pain is decreased br2 05:36 Drug: Methocarbamol PO 1500 mg PO once Route: PO; br2 06:06 Follow up: Response: No adverse reaction; Pain is decreased br2 Medication: 05:41 VIS not applicable for this client. br2 Outcome: 06:44 Discharge ordered by . sp4 07:08 Patient left the ED. iw Signatures: Olga Sinclair RN RN Anita Ramires RN RN Oriana Nagel [email or web address] Nestor Dsouza MD MD sp4 Kami Liz RN RN br2 Corrections: (The following items were deleted from the chart) 05:23 05:22 PMHx: UTI; br2 br2 05:23 05:22 PMHx: pre eclampsia; br2 br2 05:23 05:22 PMHx: depressive disorder; br2 br2 05:23 05:22 PMHx: Anxiety; br2 br2 05:23 05:22 PMHx: Heart Murmur; br2 br2
[2024-06-02 07:32] VITALS: TEMP 98.5
[2024-06-02 07:34] VITALS: O2SAT 100
[2024-06-02 07:36] VITALS: BP 140/107
== END 2024-06-02 07:08 | disposition home or self-care (01) ==
LOC: ER 05:08
DX: G89.29 Other chronic pain (principal)
CPT/HCPCS: 96374; 99284

== ENCOUNTER 2024-08-03 07:16 | Emergency (ER) | payer OTHER ==
--- OUTSIDE RECORDS SUMMARY | 2024-08-03 07:26 | XMS REPORT | Continuity of Care Document ---
Author Name Unknown Address [address] [facility]. [address] [place] [address] [facility] thconnect Address [address] [facility] [address] [place] [address] Care Team Providers Care Liaison Planner Name Role Phone Yolanda Champion Primary Care Physician [phone] DORIAN LOZOYA Attending Clinician Unavailable DORIAN LOZOYA Attending Clinician Unavailable Netta KENNEDY, Olamide Attending Clinician [phone] Doctor Unassigned, Muldraugh Attending Clinician U Kory Yo MD Attending Clinician KORY CRUZ Attending Clinician Unavailable Stanley KENNEDY, Xenia Mac Attending Clinician + Agnes Pedraza MD Attending Clinician ARIELA WILKINSON Attending Clinician ARIELA Dunn Attending Clinician Jose Antonio candelario 2, [facility] Attending Clinician Unavailable MARY AVINA Attending Clinician Unavailable Mary Avina MD Attending Clinician [phone] ELOY CHAVEZ Attending Clinician Unavaila Nacho Dior DO Attending Clinician [phone] Sheldon KENNEDY, Kristal Phelps Attending Clinician + Scott KENNEDY, Eloy Ramires Attending Clinician + [phone], [facility] Room Attending Clinician Unavailcatherine Melton MD, Sunita Segura Attending Clinician [phone] Nurse, [facility] Attending Clinician Amanda rustam RODRIGUEZM, Krystal Sears Attending Clinician [phone] Sammy RN, Heidi T Attending Clinician Unavaila kam Akinsirebecca WHCNPHuy Attending Clinician + HUY MENDOZA Attending Clinician Unavail able SHELLEY OCASIO Attending Clinician Unav ailbarb [facility], [facility] Attending Clinician Unavaila kam Daniels MD, Franco Attending Clinician + KRYSTAL LOW Attending Clinician UnavailLEEROY Carter Attending Clinician Unavailable YVONNE SIDDIQI Attending Clinician Unavailable Yvonne Rodriguez Attending Clinician [phone] [facility] Attending Clinician Unadereck ilBroderick Ballesteros DO Attending Clinician [phone] JOSY CHAUDHARY Attending Clinician Unavailable KRISSY GREEN Attending Clinician Unavailable Josy Chaudhary PA-C Attending Clinician [phone], [facility] Attending Clinician Unavailable ARIELA WILKINSON Admitting Clinician KORY Weller Admitting Clinician Unavailable Miky KENNEDY, Kory Vasquez Admitting Clinician [phone] MARY AVINA Admitting Clinician Unavailable Mary Avina MD Admitting Clinician ELOY CHAVEZ Admitting Clinician UnavailEloy Lewis MD Admitting Clinician [phone] Payers Payer Name Policy Type Policy Number Effective Date Expirati on Date Source [facility] [id number] 2023 00:00:00 MEDICAID PENDING PENDING 2023 00:00:00 2023 00:00:00 [place] [id number] 2023 00:00:00 2023 00:00:00 [facility] [id number] 2018 00:00:00 Problems Condition Name Condition Details Condition Category Status Onset Date Resolution Date Last Treatment Date Treating Clinician Comments Source Normal labor Normal labor Disease Active 09-25 00:00: 00 [facility] Liveborn , of [place] , born in hospital by vaginal delivery Liveborn infant, of [place] , born in hospital by vaginal delivery Disease Active 09-25 00:00: 00 [facility] 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 Disease Active 2022-09 00:00: 00 [facility] 37 weeks gestation of 37 weeks gestation of Disease Active 2022-09 00:00: 00 [facility] Drug use complicati ng in third trimester Drug use complicati ng in third trimester Disease Active 2022-09 00:00: 00 [facility] 38 weeks gestation of 38 weeks gestation of Disease Active 2022-09 00:00: 00 [facility] Fall (on) (from) unspecifie d stairs and steps, sequela Fall (on) (from) unspecifie d stairs and steps, sequela Disease Active 2022-09 00:00: 00 [facility] Injury Injury Disease Active 2022-09 00:00: 00 [facility] Fall Fall Disease Active 2022-09 00:00: 00 [facility] High-risk in third trimester High-risk in third trimester Disease Active 2022-09 00:00: 00 [facility] Limited care in third trimester Limited care in third trimester Disease Active 2022-09 00:00: 00 [facility] Cramping affecting , antepartum Cramping affecting , antepartum Disease Active 2022-09 00:00: 00 [facility] 30 weeks gestation of 30 weeks gestation of Disease Active 2022-09 00:00: 00 [facility] 31 weeks gestation of 31 weeks gestation of Disease Active 2022-09 00:00: 00 [facility] Maternal varicella, non-immune Maternal varicella, non-immune Disease Active 02-12 00:00: 00 [facility] Obesity affecting Obesity affecting Disease Active 02-11 00:00: 00 [facility] History of heart murmur in childhood History of heart murmur in childhood Disease Active 02-11 00:00: 00 Overview: Formattin g of this note might be different from the original. Age 12EKG NSR with sinus arrhythmi a. Normal EKG compared to 7. [facility] Family history of autism Family history of autism Disease Active 02-11 00:00: 00 Overview: Formattin g of this note might be different from the original. Patient sister and daughter [facility] Anemia, antepartum , third trimester Anemia, antepartum , third trimester Disease Active 2018-09 00:00: 00 [facility] History of anxiety and depression History of anxiety and depression Disease Active 01-04 00:00: 00 [facility] Anxiety during Anxiety during Disease Active 01-04 00:00: 00 [facility] uterine contractio ns, antepartum , third trimester uterine contractio ns, antepartum , third trimester Disease Resolve d 2022-09 00:00: 00 2023-09-25 00:00:00 2023-09-25 01:41:06 [facility] 33 weeks gestation of 33 weeks gestation of Disease Resolve d 2022-09 00:00: 00 2023-08-28 00:00:00 2023-08-28 12:38:51 [facility] Trichomona l vaginitis during Trichomona l vaginitis during Disease Resolve d 2022-0 5-26 00:00: 00 2023-08-04 00:00:00 2023-08-04 10:21:06 [facility] Nausea and vomiting during Nausea and vomiting during Disease Resolve d 0 - 00:00: 00 2023-03-13 00:00:00 2023-03-13 21:27:28 [facility] Nexplanon insertion Nexplanon insertion Disease Resolve d 2018-09 216 00:00: 00 2023-02-11 00:00:00 2023-02-11 13:15:49 [facility] Nexplanon in place Nexplanon in place Disease Resolve d 2018-09 2-16 00:00: 00 2023-02-11 00:00:00 2023-02-11 13:15:51 [facility] Encounter for female control Encounter for female control Disease Resolve d 2018-09 2-16 00:00: 00 2023-02-11 00:00:00 2023-02-11 13:15:53 [facility] Anemia, antepartum , third trimester Anemia, antepartum , third trimester Disease Resolve d 2018-0912 00:00: 00 2023-02-11 00:00:00 2023-02-11 13:15:55 [facility] Obesity (BMI 30-39.9) Obesity (BMI 30-39.9) Disease Resolve d 4-15 00:00: 00 2023-02-11 00:00:00 2023-02-11 13:15:59 [facility] History of depression History of depression Disease Resolve d 4-15 00:00: 00 2023-02-11 00:00:00 2023-02-11 20:41:59 [facility] 39 weeks gestation of 39 weeks gestation of Disease Resolve d 2018-09 00:00: 00 2019-09-06 00:00:00 2019-09-06 12:08:27 [facility] Allergies, Adverse Reactions, Alerts Allergy Name Allergy Type Status Severity Reaction(s) Onset Date Inactive Date Treating Clinician Comments Source NO KNOWN ALLERGIE S Drug Class Active [facility] Social History Social Habit Start Date Stop Date Quantity Comments Source ASSERTION 2023-01-10 00:00:00 [facility] History of tobacco use Passive smoker [facility] Alcoholic beverage intake 2024-04-19 00:00:00 2024-04-19 00:00:00 Current non-drinker of alcohol (finding) [facility] Alcohol intake 2023-10-10 00:00:00 2023-10-10 00:00:00 Current non-drinker of alcohol (finding) [facility] Tobacco Comment 2023-02-11 00:00:00 2023-02-11 00:00:00 fiance smokes outside [facility] Tobacco use and exposure 2023-02-11 00:00:00 2023-02-11 00:00:00 Smokeless tobacco non-user [facility] History of Social function 2023-02-11 00:00:00 2023-02-11 00:00:00 [facility] Exposure to SARS-CoV-2 (event) 2022-01-06 00:00:00 2022-01-16 20:33:00 Unable to assess [facility] Sex assigned at 2000 00:00:00 2000 00:00:00 [facility] Smoking Status Start Date Stop Date Source Never smoked tobacco [facility] Medications Ordered Medication Name Filled Medication Name Start Date Stop Date Current Medication? Ordering Clinician Indication Dosage Frequency Signature (SIG) Comments Components Source acetaminoph en (TYLENOL) tablet 975 mg 04-19 20:15: 00 04-19 21:01 :00 No 975mg 975 mg, Oral, ONCE NOW, 1 dose, On Fri04/19/24 at 1515, ABHAY [facility] ketorolac (TORADOL) injection 30 mg 04-19 20:00: 00 04-19 21:01 :00 No 30mg 30 mg, Slow IV Push, ONCE NOW, 1 dose, On Fri04/19/24 at 1500, [facility] gabapentin (NEURONTIN) capsule 300 mg 04-19 19:15: 00 04-19 21:01 :00 No 300mg 300 mg, Oral, ONCE, 1 dose, On Fri04/19/24 at 1415, [facility] dexamethaso ne sod phos PF injection 10 mg 04-19 19:15: 00 04-19 21:01 :00 No 10mg 10 mg, Slow IV Push, ONCE, 1 dose, On Fri04/19/24 at 1415, 1 mL [facility] meloxicam 15 mg tablet 03-22 00:00: 00 [...] 50 mg tablet 10-17 00:00: 00 Yes [id number] 50mg Take 1 tablet by mouth in the morning. [facility] busPIRone 10 mg tablet 10-10 00:00: 00 Yes [id number] 10mg Take 1 tablet by mouth in the morning and 1 tablet in the evening. [facility] SERTraline (ZOLOFT) 25 mg tablet 10-10 00:00: 00 10-18 05:59 :00 No [id number] 25mg Take 1 tablet by mouth in the morning for 7 days. [facility] vitamin w/FA tablet 09-26 00:00: 00 Yes [id number] 1{tbl} Take 1 tablet by mouth in the morning. [facility] docusate 100 mg capsule 09-26 00:00: 00 Yes [id number] 200mg Take 2 capsules by mouth once daily as needed for Constipati on. [facility] ferrous sulfate 325 mg (65 mg iron) tablet 09-26 00:00: 00 Yes [id number] 325mg Take 1 tablet by mouth in the morning and 1 tablet in the evening. [facility] ibuprofen 600 mg tablet 09-26 00:00: 00 Yes [id number] 600mg Take 1 tablet by mouth every 6 (six) hours as needed (Pain). Take with food or milk. [facility] witch Gilbert (TUCKS) 50 % topical pad 09-25 16:22: 14 Yes Topical, Q4HPRN, Starting on Fri09/25/23 at 1022, Until Discontinu ed, Routine, rectal/hem orrhoidal [facility] rho(D) immune globulin (RHOGAM) syringe 300 mcg 09-25 16:18: 36 Yes 300ug 300 mcg, Intramuscu lar, ONCE, For 1 dose, Conditiona l, Routine [facility] HYDROcodone -acetaminop hen (NORCO 5) 5-325 mg tablet 1 tablet 09-25 16:18: 06 Yes 1{tbl} 1 tablet, Oral, Q6HPRN, Starting on Fri09/25/23 at 1018, Until Discontinu ed, Routine, Pain (scale 7-10) [facility] ibuprofen (IBU) tablet 600 mg 09-25 16:18: 06 Yes 600mg 600 mg, Oral, Q6HPRN, Starting on Fri09/25/23 at 1018, Until Discontinu ed, Routine, Pain (scale 4-6) [facility] acetaminoph en (TYLENOL) tablet 650 mg 09-25 16:18: 06 Yes 650mg 650 mg, Oral, Q6HPRN, Starting on Fri09/25/23 at 1018, Until Discontinu ed, Routine, Pain (scale 1-3) [facility] diphenhydrA MINE (BENADRYL) tablet 25 mg 09-25 16:18: 06 Yes 25mg 25 mg, Oral, Q6HPRN, Starting on Fri09/25/23 at 1018, Until Discontinu ed, Routine, Sleep, Itching [facility] ondansetron (ZOFRAN (PF)) injection 4 mg 09-25 16:18: 06 Yes 4mg 4 mg, Slow IV Push, Q8HPRN, Starting on Fri09/25/23 at 1018, Until Discontinu ed, Routine, Nausea and Vomiting (N/V) [facility] simethicone (GAS RELIEF (SIMETHICON E)) chewable tablet 160 mg 09-25 16:18: 06 Yes 160mg 160 mg, Oral, PC+HSPRN, Starting on Fri09/25/23 at 1018, Until Discontinu ed, Routine, Gas [facility] docusate (COLACE) capsule 200 mg 09-25 16:18: 06 Yes 200mg 200 mg, Oral, QDAILYPRN, Starting on Fri09/25/23 at 1018, Until Discontinu ed, Routine, Constipati on [facility] magnesium hydroxide (MILK OF MAGNESIA) 400 mg/5 mL suspension 30 mL 09-25 16:18: 06 Yes 30mL 30 mL, Oral, QDAILYPRN, Starting on Fri09/25/23 at 1018, Until Discontinu ed, Routine, Constipati on [facility] benzocaine- menthol (DERMOPLAST ) 20-0.5 % topical spray 09-25 16:18: 06 Yes Topical, PRN, Starting on Fri09/25/23 at 1018, Until Discontinu ed, Routine, Perineum discomfort [facility] SERTraline (ZOLOFT) tablet 100 mg 09-25 15:00: 00 Yes 100mg 100 mg, Oral, DAILY, First dose on 09/25/24 at 0900, Until Discontinu ed, Routine [facility] fentaNYL-ro pivacaine 2 mcg/mL-0.1 % (PF) in NS 200 mL epidural infusion RTU 09-25 09:30: 00 09-25 14:54 :08 No Epidural, ONCE INTRA PROCEDURE, Starting on Airam 09/25/23 at 0330, Until Airam 09/25/23 at 0854, Routine, Intra-op [facility] lidocaine-e pinephrine (XYLOCAINE W/EPINEPHRI NE) 1.5 %-1:200,000 injection 09-25 09:30: 00 09-25 14:54 :08 No Intraderma l, ONCE INTRA PROCEDURE, Starting on Airam 09/25/23 at 0330, Until Airam 09/25/23 at 0854, Routine, Intra-op [facility] FENTanyl PF (SUBLIMAZE (PF)) injection 100 mcg 09-25 07:40: 08 09-25 16:22 :14 No 100ug 100 mcg, Slow IV Push, Q1HPRN, Starting on Airam 09/25/23 at 0140, Until Airam 09/25/23 at 1022, Routine, contractio n pain without an epidural and SVE < 8 cm and Cat I strip [facility] ondansetron (ZOFRAN (PF)) injection 4 mg 09-25 07:40: 00 09-25 16:22 :14 No 4mg 4 mg, Slow IV Push, Q8HPRN, Nausea and Vomiting (N/V), Starting on Airam 09/25/23 at 0140
Do ses of ondansetro n 16 mg and above need to be administer ed via IV piggyback. For Dose >=24mg ECG monitoring is advisable.
[facility] oxytocin (PITOCIN) 30 units in NS 500 mL IV infusion 09-25 07:38: 50 09-25 16:21 :41 No 2mU/min at 2-40 mL/hr, IV Infusion, TITRATE, Starting on Airam 09/25/23 at 0138, Until Airam 09/25/23 at 1021, ABHAY [facility] oxytocin (PITOCIN) 30 units in NS 500 mL IV infusion 09-25 07:36: 45 09-25 13:45 :00 No 600mL/h 600 mL/hr, IV Infusion, PRN, PPH, Starting on Airam 09/25/23 at 0136, For 1 dose
As instructed by physician at bedside.<b r> [facility] lactated ringers IV infusion 500 mL 09-25 07:36: 45 09-25 16:21 :41 No 500mL at 999 mL/hr, 500 mL, IV Infusion, PRN - SEE INSTRUCTIO NS, Starting on Airam 09/25/23 at 0136, Until Airam 09/25/23 at 1021, Routine [facility] D5W-LR IV infusion 1,000 mL 09-25 07:36: 45 09-25 16:21 :40 No 1000mL at 1-125 mL/hr, IV Infusion, TITRATE, Starting on Airam 09/25/23 at 0136, Until Airam 09/25/23 at 1021, Routine [facility] famotidine 20 mg tablet 2022-09 00:00: 00 09-26 00:00 :00 No [id number] 20mg Take 1 tablet by mouth in the morning and 1 tablet in the evening. [facility] lactated ringers IV infusion 1,000 mL 2022-09 09:30: 00 Yes 1000mL at 125 mL/hr, 1,000 mL, IV Infusion, CONTINUOUS , Starting on Fri09/16/23 at 0330, Until Discontinu ed, Routine [facility] acetaminoph en (TYLENOL) tablet 650 mg 2022-09 09:17: 17 Yes 650mg 650 mg, Oral, Q6HPRN, Starting on Fri09/16/23 at 0317, Until Discontinu ed, Routine, Pain (scale 1-3) [facility] SERTraline 100 mg tablet 2022-09 00:00: 00 09-26 00:00 :00 No [id number] 109 100mg Take 1 tablet by mouth in the morning. [facility] proMETHazin e (PHENERGAN) tablet 25 mg 2022-09 14:29: 24 Yes 25mg 25 mg, Oral, Q6HPRN, Starting on Fri08/22/23 at 0829, Until Discontinu ed, Routine, Nausea and Vomiting (N/V) [facility] diphenhydrA MINE (BENADRYL) tablet 25 mg 2022-09 03:00: 00 08-22 03:19 :00 No 25mg 25 mg, Oral, ONCE, 1 dose, On Fri08/21/23 at 2100, Routine [facility] ferrous sulfate 325 mg (65 mg iron) tablet 2022-09 00:00: 00 09-26 00:00 :00 No [id number] 325mg Take 1 tablet by mouth in the morning. [facility] cyclobenzap rine (FLEXERIL) tablet 10 mg 2022-09 22:15: 00 08-21 22:06 :00 No 10mg 10 mg, Oral, ONCE NOW, 1 dose, On Fri08/21/23 at 1615, Routine [facility] terbutaline (BRETHINE) injection 0.25 mg 2022-09 19:45: 00 08-21 19:08 :00 No .25mg 0.25 mg, Subcutaneo us, ONCE, 1 dose, On Fri08/21/23 at 1345, Routine [facility] lactated ringers IV infusion 1,000 mL 2022-09 18:00: 00 08-21 19:10 :00 No 1000mL at 999 mL/hr, 1,000 mL, IV Infusion, ONCE, 1 dose, On Fri08/21/23 at 1200, Routine [facility] acetaminoph en (TYLENOL) tablet 1,000 mg 2022-09 17:00: 00 08-21 16:12 :00 No 1000mg 1,000 mg, Oral, ONCE, 1 dose, On Fri08/21/23 at 1100, Routine [facility] ferrous sulfate tablet 325 mg 2022-09 15:00: 00 Yes 325mg 325 mg, Oral, DAILY, First dose on Fri08/21/23 at 0900, Until Discontinu ed, Routine [facility] SERTraline (ZOLOFT) tablet 100 mg 2022-09 15:00: 00 Yes 100mg 100 mg, Oral, DAILY, First dose on Fri08/21/23 at 0900, Until Discontinu ed, Routine [facility] diphenhydrA MINE (BENADRYL) tablet 25 mg 2022-09 09:16: 00 08-21 09:24 :00 No 25mg 25 mg, Oral, ONCE, 1 dose, On Fri08/21/23 at 0330, Routine [facility] fluconazole (DIFLUCAN) tablet 150 mg 2022-09 08:00: 00 08-21 08:00 :00 No 150mg 150 mg, Oral, ONCE, 1 dose, On Fri08/21/23 at 0200, ABHAY
Re ason for Anti-Infec tive: Documented Infection< br>Documen refugio Infection Site: Pelvic
Duration of Therapy: 7 days [facility] alum-mag hydroxide-s imeth (MAG-AL PLUS) 200-200-20 mg/5 mL suspension 30 mL 2022-09 07:05: 45 Yes 30mL 30 mL, Oral, Q6HPRN, Starting on Fri08/21/23 at 0105, Until Discontinu ed, Routine, Indigestio n [facility] docusate (COLACE) capsule 200 mg 2022-09 07:05: 45 Yes 200mg 200 mg, Oral, QHSPRN, Starting on Fri08/21/23 at 0105, Until Discontinu ed, Routine, Constipati on [facility] magnesium hydroxide (MILK OF MAGNESIA) 400 mg/5 mL suspension 30 mL 2022-09 07:05: 45 Yes 30mL 30 mL, Oral, QDAILYPRN, Starting on Fri08/21/23 at 0105, Until Discontinu ed, Routine, Constipati on [facility] ondansetron (ZOFRAN (PF)) injection 4 mg 2022-09 06:45: 00 08-21 06:58 :00 No 4mg 4 mg, Slow IV Push, ONCE, On Fri08/21/23 at 0045, For 1 dose
Do ses of ondansetro n 16 mg and above need to be administer ed via IV piggyback. For Dose >=24mg ECG monitoring is advisable.
[facility] acetaminoph en (TYLENOL) tablet 1,000 mg 2022-09 06:45: 00 08-21 06:58 :00 No 1000mg 1,000 mg, Oral, ONCE, 1 dose, On Fri08/21/23 at 0045, Routine [facility] FENTanyl PF (SUBLIMAZE (PF)) injection 100 mcg 2022-09 02:15: 00 08-21 01:26 :00 No 100ug 100 mcg, Slow IV Push, ONCE, 1 dose, On Fri08/20/23 at 2015, Routine [facility] betamethaso ne acet,sod phos (CELESTONE SOLUSPAN) 6 mg/mL injection 12 mg 2022-09 01:45: 00 08-22 01:34 :00 No 12mg 12 mg, Intramuscu lar, Q24H, 2 doses, First dose on Fri08/20/23 at 1945, Last dose on Fri08/21/23 at 1945, Routine [facility] D5W 0.9% NaCl (NS) IV infusion 1,000 mL 2022-09 23:45: 00 08-21 19:39 :48 No 1000mL at 125 mL/hr, 1,000 mL, IV Infusion, CONTINUOUS , Starting on Fri08/20/23 at 1745, Until Fri08/21/23 at 1339, Routine [facility] SERTraline 100 mg tablet 2022-09 00:00: 00 09-11 00:00 :00 No [id number] 109 100mg Take 1 tablet by mouth in the morning. [facility] Nitrofurant oin&Nit. Macrocryst (MACROBID) 100 mg capsule 2022-09 00:00: 00 08-12 05:59 :00 No [id number] 100mg Take 1 capsule by mouth in the morning and 1 capsule in the evening. Do all this for 7 days. [facility] acetaminoph en (TYLENOL) tablet 650 mg 2022-09 10:00: 00 07-29 09:53 :00 No 650mg 650 mg, Oral, ONCE, 1 dose, On Fri07/29/23 at 0400, Routine [facility] SERTraline 100 mg tablet 05-21 00:00: 00 08-04 00:00 :00 No [id number] 109 100mg Take 1 tablet by mouth in the morning. [facility] ondansetron (ZOFRAN (PF)) injection 4 mg 04-18 20:45: 00 04-18 20:21 :00 No 4mg 4 mg, Slow IV Push, ONCE, On Fri04/18/23 at 1545, For 1 dose
Do ses of ondansetro n 16 mg and above need to be administer ed via IV piggyback. For Dose >=24mg ECG monitoring is advisable.
[facility] NaCl 0.9% (NS) bolus infusion 1,000 mL 04-18 20:30: 00 04-18 19:32 :00 No 1000mL at 999 mL/hr, 1,000 mL, IV Infusion, ONCE, 1 dose, On Fri04/18/23 at 1530, STAT [facility] NaCl 0.9% (NS) bolus infusion 1,000 mL 04-18 19:15: 00 04-18 18:27 :00 No 1000mL at 999 mL/hr, 1,000 mL, IV Infusion, ONCE, 1 dose, On Fri04/18/23 at 1415, STAT [facility] metroNIDAZO LE (FLAGYL) 500 mg tablet 04-18 00:00: 00 08-04 00:00 :00 No [id number] 500mg Take 1 tablet by mouth every 12 (twelve) hours. [facility] FLUCONAZOLE 150MG 04-14 00:00: 00 Yes [id number] [facility] SERTRALINE 50MG 04-14 00:00: 00 Yes [id number] [facility] PROMETHAZIN E 25MG 04-14 00:00: 00 Yes [id number] [facility] fluconazole (DIFLUCAN) 150 mg tablet 04-07 00:00: 00 04-08 04:59 :00 No [id number] 150mg Take 1 tablet by mouth once now for 1 dose. [facility] proMETHazin e 25 mg tablet 04-03 00:00: 00 09-26 00:00 :00 No [id number] 25mg Take 1 tablet by mouth every 4 (four) hours as needed for Nausea and Vomiting (N/V). [facility] SERTraline (ZOLOFT) 50 mg tablet 04-03 00:00: 00 05-08 04:59 :00 No [id number] 109 Take 1 tablet by mouth daily for 4 days, THEN 2 tablets daily for 30 days. [facility] vit 33-iron-fol ic-dha (SELECT-OB + DHA) 29 mg iron-1 mg -250 mg combo pack 03-11 00:00: 00 Yes [id number] 1{packe t} Take 1 Packet by mouth in the morning. [facility] vit 33-iron-fol ic-dha (SELECT-OB + DHA) 29 mg iron-1 mg -250 mg combo pack 03-11 00:00: 00 09-26 00:00 :00 No [id number] 1{packe t} Take 1 Packet by mouth in the morning. [facility] proMETHazin e 25 mg tablet 5-30 00:00: 00 04-03 00:00 :00 No [id number] 25mg Take 1 tablet by mouth every 4 (four) hours as needed for Nausea and Vomiting (N/V). [facility] metroNIDAZO LE 500 mg tablet 02-14 00:00: 00 02-15 04:59 :00 No [id number] 2000mg Take 4 tablets by mouth once now for 1 dose. [facility] ondansetron (ZOFRAN (PF)) injection 4 mg 01-17 04:00: 01-17 03:11 :00 No 4mg 4 mg, Slow IV Push, ONCE, 1 dose, On Fri01/16/22 at 2300, ABAHY [facility] NaCl 0.9% (NS) bolus infusion 1,000 mL 01-17 04:00: 00 01-17 03:52 :00 No 1000mL at 999 mL/hr, 1,000 mL, IV Infusion, ONCE, 1 dose, On Fri01/16/22 at 2300, ABHAY [facility] ondansetron 4 mg disintegrat ing tablet 01-16 00:00: 04-03 00:00 :00 No [id number] 4mg Take 1 tablet by mouth every 8 (eight) hours as needed for Nausea and Vomiting (N/V). [facility] azithromyci n 250 mg tablet 12-17 00:00: 00 02-11 00:00 :00 No [id number] 250mg Take 1 tablet by mouth daily. Take 500 mg day 1, then 250 mg days 2 to 5. [facility] Nitrofurant oin&Nit. Macrocryst 100 mg capsule 05-04 00:00: 00 05-12 04:59 :00 No [id number] 100mg Take 1 capsule by mouth 2 (two) times daily for 7 days. [facility] metroNIDAZO LE 500 mg tablet 04-30 00:00: 00 05-04 00:00 :00 No [id number] 500mg Take 1 tablet by mouth every 12 (twelve) hours. [facility] fluconazole (DIFLUCAN) 200 mg tablet 04-29 00:00: 00 05-04 00:00 :00 No [id number] 200mg Take 1 tablet by mouth daily. [facility] [id number], carb,glu-FA -dss-dha (CITRANATAL DHA, ALGAL OIL,) 27 mg iron-1 mg -50 mg-250 mg Cmpk -15 00:00: 00 Yes [id number] 9106 Take 1 TAB-CAP/M2 by mouth daily. [facility] Immunizations Ordered Immunization Name Filled Immunization Name Date Status Comments Source Tdap Tdap 2023-08-04 00:00:00 Completed [facility] Influenza, injectable, Madin Nicki Canine Kidney, preservative-free, quadrivalent Influenza, injectable, Madin Tilly Canine Kidney, preservative-free, quadrivalent 2023-08-04 00:00:00 Completed [facility] SARS-COV-2 COVID-19 VACCINE - (MODERNA) 2021-11-01 00:00:00 Completed [facility] SARS-COV-2 COVID-19 VACCINE - (MODERNA) 2021-11-01 00:00:00 Completed [facility] SARS-COV-2 COVID-19 VACCINE - (MODERNA) 2021-11-01 00:00:00 Completed [facility] SARS-COV-2 COVID-19 VACCINE - (MODERNA) 2021-11-01 00:00:00 Completed [facility] SARS-COV-2 COVID-19 VACCINE - (MODERNA) 2021-11-01 00:00:00 Completed [facility] SARS-COV-2 COVID-19 VACCINE - (MODERNA) 2021-11-01 00:00:00 Completed [facility] SARS-COV-2 COVID-19 VACCINE - (MODERNA) 2021-11-01 00:00:00 Completed [facility] SARS-COV-2 COVID-19 VACCINE - (MODERNA) 2021-11-01 00:00:00 Completed [facility] SARS-COV-2 COVID-19 VACCINE - (MODERNA) 2021-11-01 00:00:00 Completed [facility] SARS-COV-2 COVID-19 VACCINE - (MODERNA) 2021-11-01 00:00:00 Completed [facility] SARS-COV-2 COVID-19 VACCINE - (MODERNA) 2021-11-01 00:00:00 Completed [facility] SARS-COV-2 COVID-19 VACCINE - (MODERNA) 2021-11-01 00:00:00 Completed [facility] SARS-COV-2 COVID-19 VACCINE - (MODERNA) 2021-11-01 00:00:00 Completed [facility] SARS-COV-2 COVID-19 VACCINE - (MODERNA) 2021-11-01 00:00:00 Completed [facility] SARS-COV-2 COVID-19 VACCINE - (MODERNA) 2021-11-01 00:00:00 Completed [facility] SARS-COV-2 COVID-19 VACCINE - (MODERNA) 2021-11-01 00:00:00 Completed [facility] SARS-COV-2 COVID-19 VACCINE - (MODERNA) 2021-11-01 00:00:00 Completed [facility] SARS-COV-2 COVID-19 VACCINE - (MODERNA) 2021-11-01 00:00:00 Completed [facility] SARS-COV-2 COVID-19 VACCINE - (MODERNA) 2021-11-01 00:00:00 Completed [facility] SARS-COV-2 COVID-19 VACCINE - (MODERNA) 2021-11-01 00:00:00 Completed [facility] SARS-COV-2 COVID-19 VACCINE - (MODERNA) 2021-11-01 00:00:00 Completed [facility] SARS-COV-2 COVID-19 VACCINE - (MODERNA) 2021-06-08 00:00:00 Completed [facility] SARS-COV-2 COVID-19 VACCINE - (MODERNA) 2021-06-08 00:00:00 Completed [facility] SARS-COV-2 COVID-19 VACCINE - (MODERNA) 2021-06-08 00:00:00 Completed [facility] SARS-COV-2 COVID-19 VACCINE - (MODERNA) 2021-06-08 00:00:00 Completed [facility] SARS-COV-2 COVID-19 VACCINE - (MODERNA) 2021-06-08 00:00:00 Completed [facility] SARS-COV-2 COVID-19 VACCINE - (MODERNA) 2021-06-08 00:00:00 Completed [facility] SARS-COV-2 COVID-19 VACCINE - (MODERNA) 2021-06-08 00:00:00 Completed [facility] SARS-COV-2 COVID-19 VACCINE - (MODERNA) 2021-06-08 00:00:00 Completed [facility] SARS-COV-2 COVID-19 VACCINE - (MODERNA) 2021-06-08 00:00:00 Completed [facility] SARS-COV-2 COVID-19 VACCINE - (MODERNA) 2021-06-08 00:00:00 Completed [facility] SARS-COV-2 COVID-19 VACCINE - (MODERNA) 2021-06-08 00:00:00 Completed [facility] SARS-COV-2 COVID-19 VACCINE - (MODERNA) 2021-06-08 00:00:00 Completed [facility] SARS-COV-2 COVID-19 VACCINE - (MODERNA) 2021-06-08 00:00:00 Completed [facility] SARS-COV-2 COVID-19 VACCINE - (MODERNA) 2021-06-08 00:00:00 Completed [facility] SARS-COV-2 COVID-19 VACCINE - (MODERNA) 2021-06-08 00:00:00 Completed [facility] SARS-COV-2 COVID-19 VACCINE - (MODERNA) 2021-06-08 00:00:00 Completed [facility] SARS-COV-2 COVID-19 VACCINE - (MODERNA) 2021-06-08 00:00:00 Completed [facility] SARS-COV-2 COVID-19 VACCINE - (MODERNA) 2021-06-08 00:00:00 Completed [facility] SARS-COV-2 COVID-19 VACCINE - (MODERNA) 2021-06-08 00:00:00 Completed [facility] SARS-COV-2 COVID-19 VACCINE - (MODERNA) 2021-06-08 00:00:00 Completed [facility] SARS-COV-2 COVID-19 VACCINE - (MODERNA) 2021-06-08 00:00:00 Completed [facility] Influenza Virus Vaccine Quad .5 mL IM 6+ MO 2019-06-29 00:00:00 Completed [facility] Influenza Virus Vaccine Quad .5 mL IM 6+ MO 2019-06-29 00:00:00 Completed [facility] Influenza Virus Vaccine Quad .5 mL IM 6+ MO 2019-06-29 00:00:00 Completed [facility] Influenza Virus Vaccine Quad .5 mL IM 6+ MO 2019-06-29 00:00:00 Completed [facility] Influenza Virus Vaccine Quad .5 mL IM 6+ MO (FLUZONE/FLULAVAL/FL UARIX) 2019-06-29 00:00:00 Completed [facility] Influenza Virus Vaccine Quad .5 mL IM 6+ MO (FLUZONE/FLULAVAL/FL UARIX) 2019-06-29 00:00:00 Completed [facility] Influenza Virus Vaccine Quad .5 mL IM 6+ MO (FLUZONE/FLULAVAL/FL UARIX) 2019-06-29 00:00:00 Completed [facility] Influenza Virus Vaccine Quad .5 mL IM 6+ MO (FLUZONE/FLULAVAL/FL UARIX) 2019-06-29 00:00:00 Completed [facility] Influenza Virus Vaccine Quad .5 mL IM 6+ MO 2019-06-29 00:00:00 Completed [facility] Influenza Virus Vaccine Quad .5 mL IM 6+ MO 2019-06-29 00:00:00 Completed [facility] Influenza Virus Vaccine Quad .5 mL IM 6+ MO 2019-06-29 00:00:00 Completed [facility] Influenza Virus Vaccine Quad .5 mL IM 6+ MO 2019-06-29 00:00:00 Completed [facility] Influenza Virus Vaccine Quad .5 mL IM 6+ MO 2019-06-29 00:00:00 Completed [facility] Influenza Virus Vaccine Quad .5 mL IM 6+ MO 2019-06-29 00:00:00 Completed [facility] Influenza Virus Vaccine Quad .5 mL IM 6+ MO 2019-06-29 00:00:00 Completed [facility] Influenza Virus Vaccine Quad .5 mL IM 6+ MO 2019-06-29 00:00:00 Completed [facility] Influenza Virus Vaccine Quad .5 mL IM 6+ MO 2019-06-29 00:00:00 Completed [facility] Influenza Virus Vaccine Quad .5 mL IM 6+ MO 2019-06-29 00:00:00 Completed [facility] Influenza Virus Vaccine Quad .5 mL IM 6+ MO 2019-06-29 00:00:00 Completed [facility] Influenza Virus Vaccine Quad .5 mL IM 6+ MO 2019-06-29 00:00:00 Completed [facility] Influenza Virus Vaccine Quad .5 mL IM 6+ MO 2019-06-29 00:00:00 Completed [facility] Influenza Virus Vaccine Quad .5 mL IM 6+ MO 2019-06-29 00:00:00 Completed [facility] Influenza Virus Vaccine Quad .5 mL IM 6+ MO 2019-06-29 00:00:00 Completed [facility] Influenza Virus Vaccine Quad .5 mL IM 6+ MO 2019-06-29 00:00:00 Completed [facility] TDAP (ADACEL) VACCINE 2019-05-27 00:00:00 Completed [facility] TDAP (ADACEL) VACCINE 2019-05-27 00:00:00 Completed [facility] TDAP (ADACEL) VACCINE 2019-05-27 00:00:00 Completed [facility] TDAP (ADACEL) VACCINE 2019-05-27 00:00:00 Completed [facility] TDAP (ADACEL) VACCINE 2019-05-27 00:00:00 Completed [facility] TDAP (ADACEL) VACCINE 2019-05-27 00:00:00 Completed [facility] TDAP (ADACEL) VACCINE 2019-05-27 00:00:00 Completed [facility] TDAP (ADACEL) VACCINE 2019-05-27 00:00:00 Completed [facility] TDAP (ADACEL) VACCINE 2019-05-27 00:00:00 Completed [facility] TDAP (ADACEL) VACCINE 2019-05-27 00:00:00 Completed [facility] TDAP (ADACEL) VACCINE 2019-05-27 00:00:00 Completed [facility] TDAP (ADACEL) VACCINE 2019-05-27 00:00:00 Completed [facility] TDAP (ADACEL) VACCINE 2019-05-27 00:00:00 Completed [facility] TDAP (ADACEL) VACCINE 2019-05-27 00:00:00 Completed [facility] TDAP (ADACEL) VACCINE 2019-05-27 00:00:00 Completed [facility] TDAP (ADACEL) VACCINE 2019-05-27 00:00:00 Completed [facility] TDAP (ADACEL) VACCINE 2019-05-27 00:00:00 Completed [facility] TDAP (ADACEL) VACCINE 2019-05-27 00:00:00 Completed [facility] TDAP (ADACEL) VACCINE 2019-05-27 00:00:00 Completed [facility] TDAP (ADACEL) VACCINE 2019-05-27 00:00:00 Completed [facility] TDAP (ADACEL) VACCINE 2019-05-27 00:00:00 Completed [facility] TDAP (ADACEL) VACCINE 2019-05-27 00:00:00 Completed [facility] TDAP (ADACEL) VACCINE 2019-05-27 00:00:00 Completed [facility] TDAP (ADACEL) VACCINE 2019-05-27 00:00:00 Completed [facility] TDAP (ADACEL) VACCINE 2019-05-27 00:00:00 Completed [facility] TDAP (ADACEL) VACCINE 2019-04-01 00:00:00 Completed [facility] TDAP (ADACEL) VACCINE 2019-04-01 00:00:00 Completed [facility] TDAP (ADACEL) VACCINE 2019-04-01 00:00:00 Completed [facility] TDAP (ADACEL) VACCINE 2019-04-01 00:00:00 Completed [facility] TDAP (ADACEL) VACCINE 2019-04-01 00:00:00 Completed [facility] TDAP (ADACEL) VACCINE 2019-04-01 00:00:00 Completed [facility] TDAP (ADACEL) VACCINE 2019-04-01 00:00:00 Completed [facility] TDAP (ADACEL) VACCINE 2019-04-01 00:00:00 Completed [facility] TDAP (ADACEL) VACCINE 2019-04-01 00:00:00 Completed [facility] TDAP (ADACEL) VACCINE 2019-04-01 00:00:00 Completed [facility] TDAP (ADACEL) VACCINE 2019-04-01 00:00:00 Completed [facility] TDAP (ADACEL) VACCINE 2019-04-01 00:00:00 Completed [facility] TDAP (ADACEL) VACCINE 2019-04-01 00:00:00 Completed [facility] TDAP (ADACEL) VACCINE 2019-04-01 00:00:00 Completed [facility] TDAP (ADACEL) VACCINE 2019-04-01 00:00:00 Completed [facility] TDAP (ADACEL) VACCINE 2019-04-01 00:00:00 Completed [facility] TDAP (ADACEL) VACCINE 2019-04-01 00:00:00 Completed [facility] TDAP (ADACEL) VACCINE 2019-04-01 00:00:00 Completed [facility] TDAP (ADACEL) VACCINE 2019-04-01 00:00:00 Completed [facility] TDAP (ADACEL) VACCINE 2019-04-01 00:00:00 Completed [facility] TDAP (ADACEL) VACCINE 2019-04-01 00:00:00 Completed [facility] TDAP (ADACEL) VACCINE 2019-04-01 00:00:00 Completed [facility] TDAP (ADACEL) VACCINE 2019-04-01 00:00:00 Completed [facility] TDAP (ADACEL) VACCINE 2019-04-01 00:00:00 Completed [facility] TDAP (ADACEL) VACCINE 2019-04-01 00:00:00 Completed [facility] TDAP (ADACEL) VACCINE 2019-04-01 00:00:00 Completed [facility] TDAP (ADACEL) VACCINE 2019-04-01 00:00:00 Completed [facility] TDAP (ADACEL) VACCINE 2019-04-01 00:00:00 Completed [facility] TDAP (ADACEL) VACCINE 2019-04-01 00:00:00 Completed [facility] TDAP (ADACEL) VACCINE 2019-04-01 00:00:00 Completed [facility] TDAP (ADACEL) VACCINE 2019-04-01 00:00:00 Completed [facility] TDAP (ADACEL) VACCINE 2019-04-01 00:00:00 Completed [facility] TDAP (ADACEL) VACCINE 2019-04-01 00:00:00 Completed [facility] TDAP (ADACEL) VACCINE 2019-04-01 00:00:00 Completed [facility] TDAP (ADACEL) VACCINE 2019-04-01 00:00:00 Completed [facility] TDAP (ADACEL) VACCINE 2019-04-01 00:00:00 Completed [facility] Influenza Virus Vaccine Quad .5 mL IM 6+ MO 2019-01-04 00:00:00 Completed [facility] Influenza Virus Vaccine Quad .5 mL IM 6+ MO 2019-01-04 00:00:00 Completed [facility] Influenza Virus Vaccine Quad .5 mL IM 6+ MO 2019-01-04 00:00:00 Completed [facility] Influenza Virus Vaccine Quad .5 mL IM 6+ MO 2019-01-04 00:00:00 Completed [facility] Influenza Virus Vaccine Quad .5 mL IM 6+ MO 2019-01-04 00:00:00 Completed [facility] Influenza Virus Vaccine Quad .5 mL IM 6+ MO (FLUZONE/FLULAVAL/FL UARIX) 2019-01-04 00:00:00 Completed [facility] Influenza Virus Vaccine Quad .5 mL IM 6+ MO (FLUZONE/FLULAVAL/FL UARIX) 2019-01-04 00:00:00 Completed [facility] Influenza Virus Vaccine Quad .5 mL IM 6+ MO (FLUZONE/FLULAVAL/FL UARIX) 2019-01-04 00:00:00 Completed [facility] Influenza Virus Vaccine Quad .5 mL IM 6+ MO (FLUZONE/FLULAVAL/FL UARIX) 2019-01-04 00:00:00 Completed [facility] Influenza Virus Vaccine Quad .5 mL IM 6+ MO 2019-01-04 00:00:00 Completed [facility] Influenza Virus Vaccine Quad .5 mL IM 6+ MO 2019-01-04 00:00:00 Completed [facility] Influenza Virus Vaccine Quad .5 mL IM 6+ MO 2019-01-04 00:00:00 Completed [facility] Influenza Virus Vaccine Quad .5 mL IM 6+ MO 2019-01-04 00:00:00 Completed [facility] Influenza Virus Vaccine Quad .5 mL IM 6+ MO 2019-01-04 00:00:00 Completed [facility] Influenza Virus Vaccine Quad .5 mL IM 6+ MO 2019-01-04 00:00:00 Completed [facility] Influenza Virus Vaccine Quad .5 mL IM 6+ MO 2019-01-04 00:00:00 Completed [facility] Influenza Virus Vaccine Quad .5 mL IM 6+ MO 2019-01-04 00:00:00 Completed [facility] Influenza Virus Vaccine Quad .5 mL IM 6+ MO 2019-01-04 00:00:00 Completed [facility] Influenza Virus Vaccine Quad .5 mL IM 6+ MO 2019-01-04 00:00:00 Completed [facility] Influenza Virus Vaccine Quad .5 mL IM 6+ MO 2019-01-04 00:00:00 Completed [facility] Influenza Virus Vaccine Quad .5 mL IM 6+ MO 2019-01-04 00:00:00 Completed [facility] Influenza Virus Vaccine Quad .5 mL IM 6+ MO 2019-01-04 00:00:00 Completed [facility] Influenza Virus Vaccine Quad .5 mL IM 6+ MO 2019-01-04 00:00:00 Completed [facility] Influenza Virus Vaccine Quad .5 mL IM 6+ MO 2019-01-04 00:00:00 Completed [facility] Influenza Virus Vaccine Quad .5 mL IM 6+ MO 2019-01-04 00:00:00 Completed [facility] Influenza Virus Vaccine Quad .5 mL IM 6+ MO 2019-01-04 00:00:00 Completed [facility] Influenza Virus Vaccine Quad .5 mL IM 6+ MO 2019-01-04 00:00:00 Completed [facility] Influenza Virus Vaccine Quad .5 mL IM 6+ MO 2019-01-04 00:00:00 Completed [facility] Influenza Virus Vaccine Quad .5 mL IM 6+ MO 2019-01-04 00:00:00 Completed [facility] Influenza Virus Vaccine Quad .5 mL IM 6+ MO 2019-01-04 00:00:00 Completed [facility] Influenza Virus Vaccine Quad .5 mL IM 6+ MO 2019-01-04 00:00:00 Completed [facility] Influenza Virus Vaccine Quad .5 mL IM 6+ MO 2019-01-04 00:00:00 Completed [facility] Influenza Virus Vaccine Quad .5 mL IM 6+ MO 2019-01-04 00:00:00 Completed [facility] Influenza Virus Vaccine Quad .5 mL IM 6+ MO 2019-01-04 00:00:00 Completed [facility] Influenza Virus Vaccine Quad .5 mL IM 6+ MO 2019-01-04 00:00:00 Completed [facility] Influenza Virus Vaccine Quad .5 mL IM 6+ MO 2019-01-04 00:00:00 Completed [facility] HPV 2015-04-13 00:00:00 Completed [facility] Meningococcal Polysaccharide (groups A, C, Y and W-135) conjugate vaccine (MCV4P) 2015-04-13 00:00:00 Completed [facility] TDAP (ADACEL) VACCINE 2015-04-13 00:00:00 Completed [facility] HPV 2015-04-13 00:00:00 Completed [facility] Meningococcal Polysaccharide (groups A, C, Y and W-135) conjugate vaccine (MCV4P) 2015-04-13 00:00:00 Completed [facility] TDAP (ADACEL) VACCINE 2015-04-13 00:00:00 Completed [facility] HPV 2015-04-13 00:00:00 Completed [facility] HPV 2015-04-13 00:00:00 Completed [facility] Meningococcal Polysaccharide (groups A, C, Y and W-135) conjugate vaccine (MCV4P) 2015-04-13 00:00:00 Completed [facility] TDAP (ADACEL) VACCINE 2015-04-13 00:00:00 Completed [facility] Meningococcal Polysaccharide (groups A, C, Y and W-135) conjugate vaccine (MCV4P) 2015-04-13 00:00:00 Completed [facility] TDAP (ADACEL) VACCINE 2015-04-13 00:00:00 Completed [facility] HPV 2015-04-13 00:00:00 Completed [facility] Meningococcal Polysaccharide (groups A, C, Y and W-135) conjugate vaccine (MCV4P) 2015-04-13 00:00:00 Completed [facility] TDAP (ADACEL) VACCINE 2015-04-13 00:00:00 Completed [facility] HPV 2015-04-13 00:00:00 Completed [facility] Meningococcal Polysaccharide (groups A, C, Y and W-135) conjugate vaccine (MCV4P) 2015-04-13 00:00:00 Completed [facility] TDAP (ADACEL) VACCINE 2015-04-13 00:00:00 Completed [facility] HPV 2015-04-13 00:00:00 Completed [facility] Meningococcal Polysaccharide (groups A, C, Y and W-135) conjugate vaccine (MCV4P) 2015-04-13 00:00:00 Completed [facility] TDAP (ADACEL) VACCINE 2015-04-13 00:00:00 Completed [facility] HPV 2015-04-13 00:00:00 Completed [facility] Meningococcal Polysaccharide (groups A, C, Y and W-135) conjugate vaccine (MCV4P) 2015-04-13 00:00:00 Completed [facility] TDAP (ADACEL) VACCINE 2015-04-13 00:00:00 Completed [facility] HPV 2015-04-13 00:00:00 Completed [facility] Meningococcal Polysaccharide (groups A, C, Y and W-135) conjugate vaccine (MCV4P) 2015-04-13 00:00:00 Completed [facility] TDAP (ADACEL) VACCINE 2015-04-13 00:00:00 Completed [facility] HPV 2015-04-13 00:00:00 Completed [facility] Meningococcal Polysaccharide (groups A, C, Y and W-135) conjugate vaccine (MCV4P) 2015-04-13 00:00:00 Completed [facility] TDAP (ADACEL) VACCINE 2015-04-13 00:00:00 Completed [facility] HPV 2015-04-13 00:00:00 Completed [facility] Meningococcal Polysaccharide (groups A, C, Y and W-135) conjugate vaccine (MCV4P) 2015-04-13 00:00:00 Completed [facility] TDAP (ADACEL) VACCINE 2015-04-13 00:00:00 Completed [facility] HPV 2015-04-13 00:00:00 Completed [facility] Meningococcal Polysaccharide (groups A, C, Y and W-135) conjugate vaccine (MCV4P) 2015-04-13 00:00:00 Completed [facility] TDAP (ADACEL) VACCINE 2015-04-13 00:00:00 Completed [facility] HPV 2015-04-13 00:00:00 Completed [facility] Meningococcal Polysaccharide (groups A, C, Y and W-135) conjugate vaccine (MCV4P) 2015-04-13 00:00:00 Completed [facility] TDAP (ADACEL) VACCINE 2015-04-13 00:00:00 Completed [facility] HPV 2015-04-13 00:00:00 Completed [facility] Meningococcal Polysaccharide (groups A, C, Y and W-135) conjugate vaccine (MCV4P) 2015-04-13 00:00:00 Completed [facility] TDAP (ADACEL) VACCINE 2015-04-13 00:00:00 Completed [facility] HPV 2015-04-13 00:00:00 Completed [facility] Meningococcal Polysaccharide (groups A, C, Y and W-135) conjugate vaccine (MCV4P) 2015-04-13 00:00:00 Completed [facility] TDAP (ADACEL) VACCINE 2015-04-13 00:00:00 Completed [facility] HPV 2015-04-13 00:00:00 Completed [facility] Meningococcal Polysaccharide (groups A, C, Y and W-135) conjugate vaccine (MCV4P) 2015-04-13 00:00:00 Completed [facility] TDAP (ADACEL) VACCINE 2015-04-13 00:00:00 Completed [facility] HPV 2015-04-13 00:00:00 Completed [facility] Meningococcal Polysaccharide (groups A, C, Y and W-135) conjugate vaccine (MCV4P) 2015-04-13 00:00:00 Completed [facility] TDAP (ADACEL) VACCINE 2015-04-13 00:00:00 Completed [facility] HPV 2015-04-13 00:00:00 Completed [facility] Meningococcal Polysaccharide (groups A, C, Y and W-135) conjugate vaccine (MCV4P) 2015-04-13 00:00:00 Completed [facility] HPV 2015-04-13 00:00:00 Completed [facility] Meningococcal Polysaccharide (groups A, C, Y and W-135) conjugate vaccine (MCV4P) 2015-04-13 00:00:00 Completed [facility] TDAP (ADACEL) VACCINE 2015-04-13 00:00:00 Completed [facility] TDAP (ADACEL) VACCINE 2015-04-13 00:00:00 Completed [facility] HPV 2015-04-13 00:00:00 Completed [facility] Meningococcal Polysaccharide (groups A, C, Y and W-135) conjugate vaccine (MCV4P) 2015-04-13 00:00:00 Completed [facility] TDAP (ADACEL) VACCINE 2015-04-13 00:00:00 Completed [facility] HPV 2015-04-13 00:00:00 Completed [facility] Meningococcal Polysaccharide (groups A, C, Y and W-135) conjugate vaccine (MCV4P) 2015-04-13 00:00:00 Completed [facility] TDAP (ADACEL) VACCINE 2015-04-13 00:00:00 Completed [facility] HPV 2015-04-13 00:00:00 Completed [facility] Meningococcal Polysaccharide (groups A, C, Y and W-135) conjugate vaccine (MCV4P) 2015-04-13 00:00:00 Completed [facility] TDAP (ADACEL) VACCINE 2015-04-13 00:00:00 Completed [facility] HPV 2015-04-13 00:00:00 Completed [facility] Meningococcal Polysaccharide (groups A, C, Y and W-135) conjugate vaccine (MCV4P) 2015-04-13 00:00:00 Completed [facility] TDAP (ADACEL) VACCINE 2015-04-13 00:00:00 Completed [facility] HPV 2015-04-13 00:00:00 Completed [facility] Meningococcal Polysaccharide (groups A, C, Y and W-135) conjugate vaccine (MCV4P) 2015-04-13 00:00:00 Completed [facility] TDAP (ADACEL) VACCINE 2015-04-13 00:00:00 Completed [facility] HPV 2015-04-13 00:00:00 Completed [facility] Meningococcal Polysaccharide (groups A, C, Y and W-135) conjugate vaccine (MCV4P) 2015-04-13 00:00:00 Completed [facility] TDAP (ADACEL) VACCINE 2015-04-13 00:00:00 Completed [facility] HPV 2015-04-13 00:00:00 Completed [facility] Meningococcal Polysaccharide (groups A, C, Y and W-135) conjugate vaccine (MCV4P) 2015-04-13 00:00:00 Completed [facility] TDAP (ADACEL) VACCINE 2015-04-13 00:00:00 Completed [facility] HPV 2015-04-13 00:00:00 Completed [facility] Meningococcal Polysaccharide (groups A, C, Y and W-135) conjugate vaccine (MCV4P) 2015-04-13 00:00:00 Completed [facility] HPV 2015-04-13 00:00:00 Completed [facility] Meningococcal Polysaccharide (groups A, C, Y and W-135) conjugate vaccine (MCV4P) 2015-04-13 00:00:00 Completed [facility] TDAP (ADACEL) VACCINE 2015-04-13 00:00:00 Completed [facility] TDAP (ADACEL) VACCINE 2015-04-13 00:00:00 Completed [facility] HPV 2015-04-13 00:00:00 Completed [facility] Meningococcal Polysaccharide (groups A, C, Y and W-135) conjugate vaccine (MCV4P) 2015-04-13 00:00:00 Completed [facility] TDAP (ADACEL) VACCINE 2015-04-13 00:00:00 Completed [facility] HPV 2015-04-13 00:00:00 Completed [facility] Meningococcal Polysaccharide (groups A, C, Y and W-135) conjugate vaccine (MCV4P) 2015-04-13 00:00:00 Completed [facility] TDAP (ADACEL) VACCINE 2015-04-13 00:00:00 Completed [facility] HPV 2015-04-13 00:00:00 Completed [facility] Meningococcal Polysaccharide (groups A, C, Y and W-135) conjugate vaccine (MCV4P) 2015-04-13 00:00:00 Completed [facility] TDAP (ADACEL) VACCINE 2015-04-13 00:00:00 Completed [facility] HPV 2015-04-13 00:00:00 Completed [facility] Meningococcal Polysaccharide (groups A, C, Y and W-135) conjugate vaccine (MCV4P) 2015-04-13 00:00:00 Completed [facility] TDAP (ADACEL) VACCINE 2015-04-13 00:00:00 Completed [facility] HPV 2015-04-13 00:00:00 Completed [facility] Meningococcal Polysaccharide (groups A, C, Y and W-135) conjugate vaccine (MCV4P) 2015-04-13 00:00:00 Completed [facility] TDAP (ADACEL) VACCINE 2015-04-13 00:00:00 Completed [facility] HPV 2015-04-13 00:00:00 Completed [facility] Meningococcal Polysaccharide (groups A, C, Y and W-135) conjugate vaccine (MCV4P) 2015-04-13 00:00:00 Completed [facility] TDAP (ADACEL) VACCINE 2015-04-13 00:00:00 Completed [facility] HPV 2015-04-13 00:00:00 Completed [facility] Meningococcal Polysaccharide (groups A, C, Y and W-135) conjugate vaccine (MCV4P) 2015-04-13 00:00:00 Completed [facility] TDAP (ADACEL) VACCINE 2015-04-13 00:00:00 Completed [facility] HPV 2015-04-13 00:00:00 Completed [facility] Meningococcal Polysaccharide (groups A, C, Y and W-135) conjugate vaccine (MCV4P) 2015-04-13 00:00:00 Completed [facility] TDAP (ADACEL) VACCINE 2015-04-13 00:00:00 Completed [facility] HPV, quadrivalent HPV, quadrivalent 2015-04-13 00:00:00 Completed [facility] meningococcal MCV4P meningococcal MCV4P 00:00:00 Completed [facility] Tdap Tdap 2015-04-13 00:00:00 Completed [facility] HPV 2012-06-29 00:00:00 Completed [facility] HPV 2012-06-29 00:00:00 Completed [facility] HPV 2012-06-29 00:00:00 Completed [facility] HPV 2012-06-29 00:00:00 Completed [facility] HPV 2012-06-29 00:00:00 Completed [facility] HPV 2012-06-29 00:00:00 Completed [facility] HPV 2012-06-29 00:00:00 Completed [facility] HPV 2012-06-29 00:00:00 Completed [facility] HPV 2012-06-29 00:00:00 Completed [facility] HPV 2012-06-29 00:00:00 Completed [facility] HPV 2012-06-29 00:00:00 Completed [facility] HPV 2012-06-29 00:00:00 Completed [facility] HPV 2012-06-29 00:00:00 Completed [facility] HPV 2012-06-29 00:00:00 Completed [facility] HPV 2012-06-29 00:00:00 Completed [facility] HPV 2012-06-29 00:00:00 Completed [facility] HPV 2012-06-29 00:00:00 Completed [facility] HPV 2012-06-29 00:00:00 Completed [facility] HPV 2012-06-29 00:00:00 Completed [facility] HPV 2012-06-29 00:00:00 Completed [facility] HPV 2012-06-29 00:00:00 Completed [facility] HPV 2012-06-29 00:00:00 Completed [facility] HPV 2012-06-29 00:00:00 Completed [facility] HPV 2012-06-29 00:00:00 Completed [facility] HPV, quadrivalent HPV, quadrivalent 2012-06-29 00:00:00 Completed [facility] Tetanus/Diptheria 2009-12-12 00:00:00 Completed [facility] Meningococcal Polysaccharide (groups A, C, Y and W-135) conjugate vaccine (MCV4P) 2009-12-12 00:00:00 Completed [facility] Varicella (varivax)(chicken pox) 2009-12-12 00:00:00 Completed [facility] HEPATITIS A 2009-12-12 00:00:00 Completed [facility] Tetanus/Diptheria 2009-12-12 00:00:00 Completed [facility] Meningococcal Polysaccharide (groups A, C, Y and W-135) conjugate vaccine (MCV4P) 2009-12-12 00:00:00 Completed [facility] Varicella (varivax)(chicken pox) 2009-12-12 00:00:00 Completed [facility] HEPATITIS A 2009-12-12 00:00:00 Completed [facility] Tetanus/Diptheria 2009-12-12 00:00:00 Completed [facility] Meningococcal Polysaccharide (groups A, C, Y and W-135) conjugate vaccine (MCV4P) 2009-12-12 00:00:00 Completed [facility] Varicella (varivax)(chicken pox) 2009-12-12 00:00:00 Completed [facility] HEPATITIS A 2009-12-12 00:00:00 Completed [facility] Tetanus/Diptheria 2009-12-12 00:00:00 Completed [facility] Meningococcal Polysaccharide (groups A, C, Y and W-135) conjugate vaccine (MCV4P) 2009-12-12 00:00:00 Completed [facility] Varicella (varivax)(chicken pox) 2009-12-12 00:00:00 Completed [facility] HEPATITIS A 2009-12-12 00:00:00 Completed [facility] Tetanus/Diptheria 2009-12-12 00:00:00 Completed [facility] Meningococcal Polysaccharide (groups A, C, Y and W-135) conjugate vaccine (MCV4P) 2009-12-12 00:00:00 Completed [facility] Varicella (varivax)(chicken pox) 2009-12-12 00:00:00 Completed [facility] HEPATITIS A 2009-12-12 00:00:00 Completed [facility] Tetanus/Diptheria 2009-12-12 00:00:00 Completed [facility] Meningococcal Polysaccharide (groups A, C, Y and W-135) conjugate vaccine (MCV4P) 2009-12-12 00:00:00 Completed [facility] Varicella (varivax)(chicken pox) 2009-12-12 00:00:00 Completed [facility] HEPATITIS A 2009-12-12 00:00:00 Completed [facility] Tetanus/Diptheria 2009-12-12 00:00:00 Completed [facility] Meningococcal Polysaccharide (groups A, C, Y and W-135) conjugate vaccine (MCV4P) 2009-12-12 00:00:00 Completed [facility] Varicella (varivax)(chicken pox) 2009-12-12 00:00:00 Completed [facility] HEPATITIS A 2009-12-12 00:00:00 Completed [facility] Tetanus/Diptheria 2009-12-12 00:00:00 Completed [facility] Meningococcal Polysaccharide (groups A, C, Y and W-135) conjugate vaccine (MCV4P) 2009-12-12 00:00:00 Completed [facility] Varicella (varivax)(chicken pox) 2009-12-12 00:00:00 Completed [facility] HEPATITIS A 2009-12-12 00:00:00 Completed [facility] Tetanus/Diptheria 2009-12-12 00:00:00 Completed [facility] Meningococcal Polysaccharide (groups A, C, Y and W-135) conjugate vaccine (MCV4P) 2009-12-12 00:00:00 Completed [facility] Varicella (varivax)(chicken pox) 2009-12-12 00:00:00 Completed [facility] Meningococcal Polysaccharide (groups A, C, Y and W-135) conjugate vaccine (MCV4P) 2009-12-12 00:00:00 Completed [facility] Varicella (varivax)(chicken pox) 2009-12-12 00:00:00 Completed [facility] Meningococcal Polysaccharide (groups A, C, Y and W-135) conjugate vaccine (MCV4P) 2009-12-12 00:00:00 Completed [facility] Varicella (varivax)(chicken pox) 2009-12-12 00:00:00 Completed [facility] Meningococcal Polysaccharide (groups A, C, Y and W-135) conjugate vaccine (MCV4P) 2009-12-12 00:00:00 Completed [facility] Varicella (varivax)(chicken pox) 2009-12-12 00:00:00 Completed [facility] HEPATITIS A 2009-12-12 00:00:00 Completed [facility] Tetanus/Diptheria 2009-12-12 00:00:00 Completed [facility] Meningococcal Polysaccharide (groups A, C, Y and W-135) conjugate vaccine (MCV4P) 2009-12-12 00:00:00 Completed [facility] Varicella (varivax)(chicken pox) 2009-12-12 00:00:00 Completed [facility] HEPATITIS A 2009-12-12 00:00:00 Completed [facility] Tetanus/Diptheria 2009-12-12 00:00:00 Completed [facility] Meningococcal Polysaccharide (groups A, C, Y and W-135) conjugate vaccine (MCV4P) 2009-12-12 00:00:00 Completed [facility] Varicella (varivax)(chicken pox) 2009-12-12 00:00:00 Completed [facility] HEPATITIS A 2009-12-12 00:00:00 Completed [facility] Tetanus/Diptheria 2009-12-12 00:00:00 Completed [facility] Meningococcal Polysaccharide (groups A, C, Y and W-135) conjugate vaccine (MCV4P) 2009-12-12 00:00:00 Completed [facility] Varicella (varivax)(chicken pox) 2009-12-12 00:00:00 Completed [facility] HEPATITIS A 2009-12-12 00:00:00 Completed [facility] Tetanus/Diptheria 2009-12-12 00:00:00 Completed [facility] Meningococcal Polysaccharide (groups A, C, Y and W-135) conjugate vaccine (MCV4P) 2009-12-12 00:00:00 Completed [facility] Varicella (varivax)(chicken pox) 2009-12-12 00:00:00 Completed [facility] HEPATITIS A 2009-12-12 00:00:00 Completed [facility] Tetanus/Diptheria 2009-12-12 00:00:00 Completed [facility] Meningococcal Polysaccharide (groups A, C, Y and W-135) conjugate vaccine (MCV4P) 2009-12-12 00:00:00 Completed [facility] Varicella (varivax)(chicken pox) 2009-12-12 00:00:00 Completed [facility] HEPATITIS A 2009-12-12 00:00:00 Completed [facility] Tetanus/Diptheria 2009-12-12 00:00:00 Completed [facility] Meningococcal Polysaccharide (groups A, C, Y and W-135) conjugate vaccine (MCV4P) 2009-12-12 00:00:00 Completed [facility] Varicella (varivax)(chicken pox) 2009-12-12 00:00:00 Completed [facility] HEPATITIS A 2009-12-12 00:00:00 Completed [facility] Tetanus/Diptheria 2009-12-12 00:00:00 Completed [facility] Meningococcal Polysaccharide (groups A, C, Y and W-135) conjugate vaccine (MCV4P) 2009-12-12 00:00:00 Completed [facility] Varicella (varivax)(chicken pox) 2009-12-12 00:00:00 Completed [facility] HEPATITIS A 2009-12-12 00:00:00 Completed [facility] Tetanus/Diptheria 2009-12-12 00:00:00 Completed [facility] Meningococcal Polysaccharide (groups A, C, Y and W-135) conjugate vaccine (MCV4P) 2009-12-12 00:00:00 Completed [facility] Varicella (varivax)(chicken pox) 2009-12-12 00:00:00 Completed [facility] HEPATITIS A 2009-12-12 00:00:00 Completed [facility] Tetanus/Diptheria 2009-12-12 00:00:00 Completed [facility] Meningococcal Polysaccharide (groups A, C, Y and W-135) conjugate vaccine (MCV4P) 2009-12-12 00:00:00 Completed [facility] Varicella (varivax)(chicken pox) 2009-12-12 00:00:00 Completed [facility] HEPATITIS A 2009-12-12 00:00:00 Completed [facility] Tetanus/Diptheria 2009-12-12 00:00:00 Completed [facility] Meningococcal Polysaccharide (groups A, C, Y and W-135) conjugate vaccine (MCV4P) 2009-12-12 00:00:00 Completed [facility] Varicella (varivax)(chicken pox) 2009-12-12 00:00:00 Completed [facility] HEPATITIS A 2009-12-12 00:00:00 Completed [facility] Tetanus/Diptheria 2009-12-12 00:00:00 Completed [facility] Meningococcal Polysaccharide (groups A, C, Y and W-135) conjugate vaccine (MCV4P) 2009-12-12 00:00:00 Completed [facility] Varicella (varivax)(chicken pox) 2009-12-12 00:00:00 Completed [facility] HEPATITIS A 2009-12-12 00:00:00 Completed [facility] Tetanus/Diptheria 2009-12-12 00:00:00 Completed [facility] Meningococcal Polysaccharide (groups A, C, Y and W-135) conjugate vaccine (MCV4P) 2009-12-12 00:00:00 Completed [facility] Varicella (varivax)(chicken pox) 2009-12-12 00:00:00 Completed [facility] HEPATITIS A 2009-12-12 00:00:00 Completed [facility] varicella varicella 2009-12-12 00:00:00 Completed [facility] meningococcal MCV4P meningococcal MCV4P 00:00:00 [facility] Hep A, ped/adol, 2 dose Hep A, ped/adol, 2 dose 2009-12-12 00:00:00 Completed [facility] Td (adult), adsorbed Td (adult), adsorbed 2009-12-12 00:00:00 Completed [facility] DTaP, Unspecified Formulation 2003-04-28 00:00:00 Completed [facility] MMR 2003-04-28 00:00:00 Completed [facility] IPV 2003-04-28 00:00:00 Completed [facility] DTaP, Unspecified Formulation 2003-04-28 00:00:00 Completed [facility] MMR 2003-04-28 00:00:00 Completed [facility] IPV 2003-04-28 00:00:00 Completed [facility] DTaP, Unspecified Formulation 2003-04-28 00:00:00 Completed [facility] MMR 2003-04-28 00:00:00 Completed [facility] IPV 2003-04-28 00:00:00 Completed [facility] DTaP, Unspecified Formulation 2003-04-28 00:00:00 Completed [facility] MMR 2003-04-28 00:00:00 Completed [facility] IPV 2003-04-28 00:00:00 Completed [facility] DTaP, Unspecified Formulation 2003-04-28 00:00:00 Completed [facility] MMR 2003-04-28 00:00:00 Completed [facility] IPV 2003-04-28 00:00:00 Completed [facility] DTaP, Unspecified Formulation 2003-04-28 00:00:00 Completed [facility] MMR 2003-04-28 00:00:00 Completed [facility] IPV 2003-04-28 00:00:00 Completed [facility] DTaP, Unspecified Formulation 2003-04-28 00:00:00 Completed [facility] MMR 2003-04-28 00:00:00 Completed [facility] IPV 2003-04-28 00:00:00 Completed [facility] DTaP, Unspecified Formulation 2003-04-28 00:00:00 Completed [facility] MMR 2003-04-28 00:00:00 Completed [facility] IPV 2003-04-28 00:00:00 Completed [facility] DTaP, Unspecified Formulation 2003-04-28 00:00:00 Completed [facility] MMR 2003-04-28 00:00:00 Completed [facility] IPV 2003-04-28 00:00:00 Completed [facility] DTaP, Unspecified Formulation 2003-04-28 00:00:00 Completed [facility] MMR 2003-04-28 00:00:00 Completed [facility] IPV 2003-04-28 00:00:00 Completed [facility] DTaP, Unspecified Formulation 2003-04-28 00:00:00 Completed [facility] MMR 2003-04-28 00:00:00 Completed [facility] IPV 2003-04-28 00:00:00 Completed [facility] DTaP, Unspecified Formulation 2003-04-28 00:00:00 Completed [facility] MMR 2003-04-28 00:00:00 Completed [facility] IPV 2003-04-28 00:00:00 Completed [facility] DTaP, Unspecified Formulation 2003-04-28 00:00:00 Completed [facility] MMR 2003-04-28 00:00:00 Completed [facility] IPV 2003-04-28 00:00:00 Completed [facility] DTaP, Unspecified Formulation 2003-04-28 00:00:00 Completed [facility] MMR 2003-04-28 00:00:00 Completed [facility] IPV 2003-04-28 00:00:00 Completed [facility] DTaP, Unspecified Formulation 2003-04-28 00:00:00 Completed [facility] MMR 2003-04-28 00:00:00 Completed [facility] IPV 2003-04-28 00:00:00 Completed [facility] DTaP, Unspecified Formulation 2003-04-28 00:00:00 Completed [facility] MMR 2003-04-28 00:00:00 Completed [facility] IPV 2003-04-28 00:00:00 Completed [facility] DTaP, Unspecified Formulation 2003-04-28 00:00:00 Completed [facility] MMR 2003-04-28 00:00:00 Completed [facility] IPV 2003-04-28 00:00:00 Completed [facility] DTaP, Unspecified Formulation 2003-04-28 00:00:00 Completed [facility] MMR 2003-04-28 00:00:00 Completed [facility] IPV 2003-04-28 00:00:00 Completed [facility] DTaP, Unspecified Formulation 2003-04-28 00:00:00 Completed [facility] MMR 2003-04-28 00:00:00 Completed [facility] IPV 2003-04-28 00:00:00 Completed [facility] DTaP, Unspecified Formulation 2003-04-28 00:00:00 Completed [facility] MMR 2003-04-28 00:00:00 Completed [facility] IPV 2003-04-28 00:00:00 Completed [facility] DTaP, Unspecified Formulation 2003-04-28 00:00:00 Completed [facility] MMR 2003-04-28 00:00:00 Completed [facility] IPV 2003-04-28 00:00:00 Completed [facility] IPV IPV 2003-04-28 00:00:00 Completed [facility] DTaP, unspecified formul DTaP, unspecified formul 2003-04-28 00:00:00 Completed [facility] MMR MMR 2003-04-28 00:00:00 Completed [facility] HIB 4 Dose Schedule 2002-11-11 00:00:00 Completed [facility] Hep B, Adol or Pedi Dosage 2002-11-11 00:00:00 Completed [facility] MMR 2002-11-11 00:00:00 Completed [facility] DTaP, Unspecified Formulation 2002-11-11 00:00:00 Completed [facility] Polio (IPV/OPV) 2002-11-11 00:00:00 Completed [facility] IPV 2002-11-11 00:00:00 Completed [facility] Varicella (varivax)(chicken pox) 2002-11-11 00:00:00 Completed [facility] DTAP 2002-11-11 00:00:00 Completed [facility] DTaP, Unspecified Formulation 2002-11-11 00:00:00 Completed [facility] IPV 2002-11-11 00:00:00 Completed [facility] DTaP, Unspecified Formulation 2002-11-11 00:00:00 Completed [facility] IPV 2002-11-11 00:00:00 Completed [facility] DTaP, Unspecified Formulation 2002-11-11 00:00:00 Completed [facility] IPV 2002-11-11 00:00:00 Completed [facility] DTaP, Unspecified Formulation 2002-11-11 00:00:00 Completed [facility] IPV 2002-11-11 00:00:00 Completed [facility] DTAP 2002-11-11 00:00:00 Completed [facility] HIB 4 Dose Schedule 2002-11-11 00:00:00 Completed [facility] Hep B, Adol or Pedi Dosage 2002-11-11 00:00:00 Completed [facility] DTaP, Unspecified Formulation 2002-11-11 00:00:00 Completed [facility] MMR 2002-11-11 00:00:00 Completed [facility] IPV 2002-11-11 00:00:00 Completed [facility] Polio (IPV/OPV) 2002-11-11 00:00:00 Completed [facility] Varicella (varivax)(chicken pox) 2002-11-11 00:00:00 Completed [facility] DTaP, Unspecified Formulation 2002-11-11 00:00:00 Completed [facility] IPV 2002-11-11 00:00:00 Completed [facility] DTaP, Unspecified Formulation 2002-11-11 00:00:00 Completed [facility] IPV 2002-11-11 00:00:00 Completed [facility] DTAP 2002-11-11 00:00:00 Completed [facility] HIB 4 Dose Schedule 2002-11-11 00:00:00 Completed [facility] Hep B, Adol or Pedi Dosage 2002-11-11 00:00:00 Completed [facility] MMR 2002-11-11 00:00:00 Completed [facility] Polio (IPV/OPV) 2002-11-11 00:00:00 Completed [facility] Varicella (varivax)(chicken pox) 2002-11-11 00:00:00 Completed [facility] DTAP 2002-11-11 00:00:00 Completed [facility] HIB 4 Dose Schedule 2002-11-11 00:00:00 Completed [facility] Hep B, Adol or Pedi Dosage 2002-11-11 00:00:00 Completed [facility] MMR 2002-11-11 00:00:00 Completed [facility] Polio (IPV/OPV) 2002-11-11 00:00:00 Completed [facility] Varicella (varivax)(chicken pox) 2002-11-11 00:00:00 Completed [facility] DTAP 2002-11-11 00:00:00 Completed [facility] HIB 4 Dose Schedule 2002-11-11 00:00:00 Completed [facility] Hep B, Adol or Pedi Dosage 2002-11-11 00:00:00 Completed [facility] MMR 2002-11-11 00:00:00 Completed [facility] Polio (IPV/OPV) 2002-11-11 00:00:00 Completed [facility] Varicella (varivax)(chicken pox) 2002-11-11 00:00:00 Completed [facility] DTAP 2002-11-11 00:00:00 Completed [facility] HIB 4 Dose Schedule 2002-11-11 00:00:00 Completed [facility] Hep B, Adol or Pedi Dosage 2002-11-11 00:00:00 Completed [facility] MMR 2002-11-11 00:00:00 Completed [facility] Polio (IPV/OPV) 2002-11-11 00:00:00 Completed [facility] Varicella (varivax)(chicken pox) 2002-11-11 00:00:00 Completed [facility] DTAP 2002-11-11 00:00:00 Completed [facility] DTAP 2002-11-11 00:00:00 Completed [facility] HIB 4 Dose Schedule 2002-11-11 00:00:00 Completed [facility] HIB 4 Dose Schedule 2002-11-11 00:00:00 Completed [facility] Hep B, Adol or Pedi Dosage 2002-11-11 00:00:00 Completed [facility] MMR 2002-11-11 00:00:00 Completed [facility] Polio (IPV/OPV) 2002-11-11 00:00:00 Completed [facility] Varicella (varivax)(chicken pox) 2002-11-11 00:00:00 Completed [facility] Hep B, Adol or Pedi Dosage 2002-11-11 00:00:00 Completed [facility] MMR 2002-11-11 00:00:00 Completed [facility] DTAP 2002-11-11 00:00:00 Completed [facility] HIB 4 Dose Schedule 2002-11-11 00:00:00 Completed [facility] Hep B, Adol or Pedi Dosage 2002-11-11 00:00:00 Completed [facility] MMR 2002-11-11 00:00:00 Completed [facility] Polio (IPV/OPV) 2002-11-11 00:00:00 Completed [facility] Varicella (varivax)(chicken pox) 2002-11-11 00:00:00 Completed [facility] Polio (IPV/OPV) 2002-11-11 00:00:00 Completed [facility] Varicella (varivax)(chicken pox) 2002-11-11 00:00:00 Completed [facility] DTAP 2002-11-11 00:00:00 Completed [facility] HIB 4 Dose Schedule 2002-11-11 00:00:00 Completed [facility] Hep B, Adol or Pedi Dosage 2002-11-11 00:00:00 Completed [facility] MMR 2002-11-11 00:00:00 Completed [facility] Polio (IPV/OPV) 2002-11-11 00:00:00 Completed [facility] Varicella (varivax)(chicken pox) 2002-11-11 00:00:00 Completed [facility] DTAP 2002-11-11 00:00:00 Completed [facility] HIB 4 Dose Schedule 2002-11-11 00:00:00 Completed [facility] Hep B, Adol or Pedi Dosage 2002-11-11 00:00:00 Completed [facility] MMR 2002-11-11 00:00:00 Completed [facility] Polio (IPV/OPV) 2002-11-11 00:00:00 Completed [facility] Varicella (varivax)(chicken pox) 2002-11-11 00:00:00 Completed [facility] DTAP 2002-11-11 00:00:00 Completed [facility] HIB 4 Dose Schedule 2002-11-11 00:00:00 Completed [facility] Hep B, Adol or Pedi Dosage 2002-11-11 00:00:00 Completed [facility] MMR 2002-11-11 00:00:00 Completed [facility] Polio (IPV/OPV) 2002-11-11 00:00:00 Completed [facility] Varicella (varivax)(chicken pox) 2002-11-11 00:00:00 Completed [facility] DTAP 2002-11-11 00:00:00 Completed [facility] HIB 4 Dose Schedule 2002-11-11 00:00:00 Completed [facility] Hep B, Adol or Pedi Dosage 2002-11-11 00:00:00 Completed [facility] MMR 2002-11-11 00:00:00 Completed [facility] Polio (IPV/OPV) 2002-11-11 00:00:00 Completed [facility] Varicella (varivax)(chicken pox) 2002-11-11 00:00:00 Completed [facility] DTaP, Unspecified Formulation 2002-11-11 00:00:00 Completed [facility] IPV 2002-11-11 00:00:00 Completed [facility] DTAP 2002-11-11 00:00:00 Completed [facility] HIB 4 Dose Schedule 2002-11-11 00:00:00 Completed [facility] DTaP, Unspecified Formulation 2002-11-11 00:00:00 Completed [facility] IPV 2002-11-11 00:00:00 Completed [facility] Hep B, Adol or Pedi Dosage 2002-11-11 00:00:00 Completed [facility] MMR 2002-11-11 00:00:00 Completed [facility] Polio (IPV/OPV) 2002-11-11 00:00:00 Completed [facility] DTaP, Unspecified Formulation 2002-11-11 00:00:00 Completed [facility] Varicella (varivax)(chicken pox) 2002-11-11 00:00:00 Completed [facility] IPV 2002-11-11 00:00:00 Completed [facility] DTaP, Unspecified Formulation 2002-11-11 00:00:00 Completed [facility] IPV 2002-11-11 00:00:00 Completed [facility] DTaP, Unspecified Formulation 2002-11-11 00:00:00 Completed [facility] IPV 2002-11-11 00:00:00 Completed [facility] DTaP, Unspecified Formulation 2002-11-11 00:00:00 Completed [facility] IPV 2002-11-11 00:00:00 Completed [facility] DTaP, Unspecified Formulation 2002-11-11 00:00:00 Completed [facility] IPV 2002-11-11 00:00:00 Completed [facility] DTAP 2002-11-11 00:00:00 Completed [facility] HIB 4 Dose Schedule 2002-11-11 00:00:00 Completed [facility] DTaP, Unspecified Formulation 2002-11-11 00:00:00 Completed [facility] Hep B, Adol or Pedi Dosage 2002-11-11 00:00:00 Completed [facility] IPV 2002-11-11 00:00:00 Completed [facility] MMR 2002-11-11 00:00:00 Completed [facility] Polio (IPV/OPV) 2002-11-11 00:00:00 Completed [facility] DTaP, Unspecified Formulation 2002-11-11 00:00:00 Completed [facility] Varicella (varivax)(chicken pox) 2002-11-11 00:00:00 Completed [facility] IPV 2002-11-11 00:00:00 Completed [facility] DTaP, Unspecified Formulation 2002-11-11 00:00:00 Completed [facility] IPV 2002-11-11 00:00:00 Completed [facility] DTaP, Unspecified Formulation 2002-11-11 00:00:00 Completed [facility] IPV 2002-11-11 00:00:00 Completed [facility] DTaP, Unspecified Formulation 2002-11-11 00:00:00 Completed [facility] IPV 2002-11-11 00:00:00 Completed [facility] DTaP, Unspecified Formulation 2002-11-11 00:00:00 Completed [facility] IPV 2002-11-11 00:00:00 Completed [facility] MMR MMR 2002-11-11 00:00:00 Completed [...] Poliovirus, Live, Oral, Trivalent 1999-05-14 00:00:00 Completed [facility] DTaP, Unspecified Formulation 1999-05-14 00:00:00 Completed [facility] HIB 4 Dose Schedule 1999-05-14 00:00:00 Completed [facility] Poliovirus, Live, Oral, Trivalent 1999-05-14 00:00:00 Completed [facility] DTaP, Unspecified Formulation 1999-05-14 00:00:00 Completed [facility] HIB 4 Dose Schedule 1999-05-14 00:00:00 Completed [facility] Poliovirus, Live, Oral, Trivalent 1999-05-14 00:00:00 Completed [facility] DTaP, Unspecified Formulation 1999-05-14 00:00:00 Completed [facility] HIB 4 Dose Schedule 1999-05-14 00:00:00 Completed [facility] Poliovirus, Live, Oral, Trivalent 1999-05-14 00:00:00 Completed [facility] DTaP, Unspecified Formulation 1999-05-14 00:00:00 Completed [facility] HIB 4 Dose Schedule 1999-05-14 00:00:00 Completed [facility] Poliovirus, Live, Oral, Trivalent 1999-05-14 00:00:00 Completed [facility] DTaP, Unspecified Formulation 1999-05-14 00:00:00 Completed [facility] HIB 4 Dose Schedule 1999-05-14 00:00:00 Completed [facility] Poliovirus, Live, Oral, Trivalent 1999-05-14 00:00:00 Completed [facility] DTaP, Unspecified Formulation 1999-05-14 00:00:00 Completed [facility] HIB 4 Dose Schedule 1999-05-14 00:00:00 Completed [facility] Poliovirus, Live, Oral, Trivalent 1999-05-14 00:00:00 Completed [facility] DTaP, Unspecified Formulation 1999-05-14 00:00:00 Completed [facility] HIB 4 Dose Schedule 1999-05-14 00:00:00 Completed [facility] Poliovirus, Live, Oral, Trivalent 1999-05-14 00:00:00 Completed [facility] DTaP, Unspecified Formulation 1999-05-14 00:00:00 Completed [facility] HIB 4 Dose Schedule 1999-05-14 00:00:00 Completed [facility] Poliovirus, Live, Oral, Trivalent 1999-05-14 00:00:00 Completed [facility] DTaP, Unspecified Formulation 1999-05-14 00:00:00 Completed [facility] HIB 4 Dose Schedule 1999-05-14 00:00:00 Completed [facility] Poliovirus, Live, Oral, Trivalent 1999-05-14 00:00:00 Completed [facility] DTaP, Unspecified Formulation 1999-05-14 00:00:00 Completed [facility] HIB 4 Dose Schedule 1999-05-14 00:00:00 Completed [facility] Poliovirus, Live, Oral, Trivalent 1999-05-14 00:00:00 Completed [facility] DTaP, Unspecified Formulation 1999-05-14 00:00:00 Completed [facility] HIB 4 Dose Schedule 1999-05-14 00:00:00 Completed [facility] Poliovirus, Live, Oral, Trivalent 1999-05-14 00:00:00 Completed [facility] DTaP, Unspecified Formulation 1999-05-14 00:00:00 Completed [facility] HIB 4 Dose Schedule 1999-05-14 00:00:00 Completed [facility] Poliovirus, Live, Oral, Trivalent 1999-05-14 00:00:00 Completed [facility] DTaP, Unspecified Formulation 1999-05-14 00:00:00 Completed [facility] HIB 4 Dose Schedule 1999-05-14 00:00:00 Completed [facility] Poliovirus, Live, Oral, Trivalent 1999-05-14 00:00:00 Completed [facility] DTaP, Unspecified Formulation 1999-05-14 00:00:00 Completed [facility] HIB 4 Dose Schedule 1999-05-14 00:00:00 Completed [facility] Poliovirus, Live, Oral, Trivalent 1999-05-14 00:00:00 Completed [facility] DTaP, Unspecified Formulation 1999-05-14 00:00:00 Completed [facility] HIB 4 Dose Schedule 1999-05-14 00:00:00 Completed [facility] Poliovirus, Live, Oral, Trivalent 1999-05-14 00:00:00 Completed [facility] DTaP, Unspecified Formulation 1999-05-14 00:00:00 Completed [facility] HIB 4 Dose Schedule 1999-05-14 00:00:00 Completed [facility] Poliovirus, Live, Oral, Trivalent 1999-05-14 00:00:00 Completed [facility] DTaP, Unspecified Formulation 1999-05-14 00:00:00 Completed [facility] HIB 4 Dose Schedule 1999-05-14 00:00:00 Completed [facility] Poliovirus, Live, Oral, Trivalent 1999-05-14 00:00:00 Completed [facility] DTaP, Unspecified Formulation 1999-05-14 00:00:00 Completed [facility] HIB 4 Dose Schedule 1999-05-14 00:00:00 Completed [facility] Poliovirus, Live, Oral, Trivalent 1999-05-14 00:00:00 Completed [facility] DTaP, Unspecified Formulation 1999-05-14 00:00:00 Completed [facility] HIB 4 Dose Schedule 1999-05-14 00:00:00 Completed [facility] Poliovirus, Live, Oral, Trivalent 1999-05-14 00:00:00 Completed [facility] DTaP, Unspecified Formulation 1999-05-14 00:00:00 Completed [facility] HIB 4 Dose Schedule 1999-05-14 00:00:00 Completed [facility] Poliovirus, Live, Oral, Trivalent 1999-05-14 00:00:00 Completed [facility] DTaP, Unspecified Formulation 1999-05-14 00:00:00 Completed [facility] HIB 4 Dose Schedule 1999-05-14 00:00:00 Completed [facility] OPV OPV 1999-05-14 00:00:00 Completed [facility] DTaP, unspecified formul DTaP, unspecified formul 1999-05-14 00:00:00 Completed [facility] Hib (PRP-T) Hib (PRP-T) 1999-05-14 00:00:00 Completed [facility] Poliovirus, Live, Oral, Trivalent 1999-01-26 00:00:00 Completed [facility] DTaP, Unspecified Formulation 1999-01-26 00:00:00 Completed [facility] Hep B, Adol or Pedi Dosage 1999-01-26 00:00:00 Completed [facility] HIB 4 Dose Schedule 1999-01-26 00:00:00 Completed [facility] Poliovirus, Live, Oral, Trivalent 1999-01-26 00:00:00 Completed [facility] DTaP, Unspecified Formulation 1999-01-26 00:00:00 Completed [facility] Hep B, Adol or Pedi Dosage 1999-01-26 00:00:00 Completed [facility] HIB 4 Dose Schedule 1999-01-26 00:00:00 Completed [facility] Poliovirus, Live, Oral, Trivalent 1999-01-26 00:00:00 Completed [facility] DTaP, Unspecified Formulation 1999-01-26 00:00:00 Completed [facility] Hep B, Adol or Pedi Dosage 1999-01-26 00:00:00 Completed [facility] HIB 4 Dose Schedule 1999-01-26 00:00:00 Completed [facility] Poliovirus, Live, Oral, Trivalent 1999-01-26 00:00:00 Completed [facility] DTaP, Unspecified Formulation 1999-01-26 00:00:00 Completed [facility] Hep B, Adol or Pedi Dosage 1999-01-26 00:00:00 Completed [facility] HIB 4 Dose Schedule 1999-01-26 00:00:00 Completed [facility] Poliovirus, Live, Oral, Trivalent 1999-01-26 00:00:00 Completed [facility] DTaP, Unspecified Formulation 1999-01-26 00:00:00 Completed [facility] Hep B, Adol or Pedi Dosage 1999-01-26 00:00:00 Completed [facility] HIB 4 Dose Schedule 1999-01-26 00:00:00 Completed [facility] Poliovirus, Live, Oral, Trivalent 1999-01-26 00:00:00 Completed [facility] DTaP, Unspecified Formulation 1999-01-26 00:00:00 Completed [facility] Hep B, Adol or Pedi Dosage 1999-01-26 00:00:00 Completed [facility] HIB 4 Dose Schedule 1999-01-26 00:00:00 Completed [facility] Poliovirus, Live, Oral, Trivalent 1999-01-26 00:00:00 Completed [facility] DTaP, Unspecified Formulation 1999-01-26 00:00:00 Completed [facility] Hep B, Adol or Pedi Dosage 1999-01-26 00:00:00 Completed [facility] HIB 4 Dose Schedule 1999-01-26 00:00:00 Completed [facility] Poliovirus, Live, Oral, Trivalent 1999-01-26 00:00:00 Completed [facility] DTaP, Unspecified Formulation 1999-01-26 00:00:00 Completed [facility] Hep B, Adol or Pedi Dosage 1999-01-26 00:00:00 Completed [facility] HIB 4 Dose Schedule 1999-01-26 00:00:00 Completed [facility] Poliovirus, Live, Oral, Trivalent 1999-01-26 00:00:00 Completed [facility] DTaP, Unspecified Formulation 1999-01-26 00:00:00 Completed [facility] Hep B, Adol or Pedi Dosage 1999-01-26 00:00:00 Completed [facility] HIB 4 Dose Schedule 1999-01-26 00:00:00 Completed [facility] Poliovirus, Live, Oral, Trivalent 1999-01-26 00:00:00 Completed [facility] DTaP, Unspecified Formulation 1999-01-26 00:00:00 Completed [facility] Hep B, Adol or Pedi Dosage 1999-01-26 00:00:00 Completed [facility] HIB 4 Dose Schedule 1999-01-26 00:00:00 Completed [facility] Poliovirus, Live, Oral, Trivalent 1999-01-26 00:00:00 Completed [facility] DTaP, Unspecified Formulation 1999-01-26 00:00:00 Completed [facility] Hep B, Adol or Pedi Dosage 1999-01-26 00:00:00 Completed [facility] HIB 4 Dose Schedule 1999-01-26 00:00:00 Completed [facility] Poliovirus, Live, Oral, Trivalent 1999-01-26 00:00:00 Completed [facility] DTaP, Unspecified Formulation 1999-01-26 00:00:00 Completed [facility] Hep B, Adol or Pedi Dosage 1999-01-26 00:00:00 Completed [facility] HIB 4 Dose Schedule 1999-01-26 00:00:00 Completed [facility] Poliovirus, Live, Oral, Trivalent 1999-01-26 00:00:00 Completed [facility] DTaP, Unspecified Formulation 1999-01-26 00:00:00 Completed [facility] Hep B, Adol or Pedi Dosage 1999-01-26 00:00:00 Completed [facility] HIB 4 Dose Schedule 1999-01-26 00:00:00 Completed [facility] Poliovirus, Live, Oral, Trivalent 1999-01-26 00:00:00 Completed [facility] DTaP, Unspecified Formulation 1999-01-26 00:00:00 Completed [facility] Hep B, Adol or Pedi Dosage 1999-01-26 00:00:00 Completed [facility] HIB 4 Dose Schedule 1999-01-26 00:00:00 Completed [facility] Poliovirus, Live, Oral, Trivalent 1999-01-26 00:00:00 Completed [facility] DTaP, Unspecified Formulation 1999-01-26 00:00:00 Completed [facility] Hep B, Adol or Pedi Dosage 1999-01-26 00:00:00 Completed [facility] HIB 4 Dose Schedule 1999-01-26 00:00:00 Completed [facility] Poliovirus, Live, Oral, Trivalent 1999-01-26 00:00:00 Completed [facility] DTaP, Unspecified Formulation 1999-01-26 00:00:00 Completed [facility] Hep B, Adol or Pedi Dosage 1999-01-26 00:00:00 Completed [facility] HIB 4 Dose Schedule 1999-01-26 00:00:00 Completed [facility] Poliovirus, Live, Oral, Trivalent 1999-01-26 00:00:00 Completed [facility] DTaP, Unspecified Formulation 1999-01-26 00:00:00 Completed [facility] Hep B, Adol or Pedi Dosage 1999-01-26 00:00:00 Completed [facility] HIB 4 Dose Schedule 1999-01-26 00:00:00 Completed [facility] Poliovirus, Live, Oral, Trivalent 1999-01-26 00:00:00 Completed [facility] DTaP, Unspecified Formulation 1999-01-26 00:00:00 Completed [facility] Hep B, Adol or Pedi Dosage 1999-01-26 00:00:00 Completed [facility] HIB 4 Dose Schedule 1999-01-26 00:00:00 Completed [facility] Poliovirus, Live, Oral, Trivalent 1999-01-26 00:00:00 Completed [facility] DTaP, Unspecified Formulation 1999-01-26 00:00:00 Completed [facility] Hep B, Adol or Pedi Dosage 1999-01-26 00:00:00 Completed [facility] HIB 4 Dose Schedule 1999-01-26 00:00:00 Completed [facility] Poliovirus, Live, Oral, Trivalent 1999-01-26 00:00:00 Completed [facility] DTaP, Unspecified Formulation 1999-01-26 00:00:00 Completed [facility] Hep B, Adol or Pedi Dosage 1999-01-26 00:00:00 Completed [facility] HIB 4 Dose Schedule 1999-01-26 00:00:00 Completed [facility] Poliovirus, Live, Oral, Trivalent 1999-01-26 00:00:00 Completed [facility] DTaP, Unspecified Formulation 1999-01-26 00:00:00 Completed [facility] Hep B, Adol or Pedi Dosage 1999-01-26 00:00:00 Completed [facility] HIB 4 Dose Schedule 1999-01-26 00:00:00 Completed [facility] OPV OPV 1999-01-26 00:00:00 Completed [facility] DTaP, unspecified formul DTaP, unspecified formul 1999-01-26 00:00:00 Completed [facility] Hep B, adolescent or ped Hep B, adolescent or ped 1999-01-26 00:00:00 Completed [facility] Hib (PRP-T) Hib (PRP-T) 1999-01-26 00:00:00 Completed [facility] Hep B, Adol or Pedi Dosage 1998 00:00:00 Completed [facility] Hep B, Adol or Pedi Dosage 1998 00:00:00 Completed [facility] Hep B, Adol or Pedi Dosage 1998 00:00:00 Completed [facility] Hep B, Adol or Pedi Dosage 1998 00:00:00 Completed [facility] Hep B, Adol or Pedi Dosage 1998 00:00:00 Completed [facility] Hep B, Adol or Pedi Dosage 1998 00:00:00 Completed [facility] Hep B, Adol or Pedi Dosage 1998 00:00:00 Completed [facility] Hep B, Adol or Pedi Dosage 1998 00:00:00 Completed [facility] Hep B, Adol or Pedi Dosage 1998 00:00:00 Completed [facility] Hep B, Adol or Pedi Dosage 1998 00:00:00 Completed [facility] Hep B, Adol or Pedi Dosage 1998 00:00:00 Completed [facility] Hep B, Adol or Pedi Dosage 1998 00:00:00 Completed [facility] Hep B, Adol or Pedi Dosage 1998 00:00:00 Completed [facility] Hep B, Adol or Pedi Dosage 1998 00:00:00 Completed [facility] Hep B, Adol or Pedi Dosage 1998 00:00:00 Completed [facility] Hep B, Adol or Pedi Dosage 1998 00:00:00 Completed [facility] Hep B, Adol or Pedi Dosage 1998 00:00:00 Completed [facility] Hep B, Adol or Pedi Dosage 1998 00:00:00 Completed [facility] Hep B, Adol or Pedi Dosage 1998 00:00:00 Completed [facility] Hep B, Adol or Pedi Dosage 1998 00:00:00 Completed [facility] Hep B, Adol or Pedi Dosage 1998 00:00:00 Completed [facility] Hep B, adolescent or ped Hep B, adolescent or ped 1998 00:00:00 Completed [facility] HPV Unknown Completed [facility] Meningococcal Polysaccharide (groups A, C, Y and W-135) conjugate vaccine (MCV4P) Unknown Completed [facility] Influenza Virus Vaccine Quad .5 mL IM 6+ MO (FLUZONE/FLULAVAL/FL UARIX) Unknown Completed [facility] TDAP (ADACEL) VACCINE Unknown Completed [facility] Varicella (varivax)(chicken pox) Unknown Completed [facility] SARS-COV-2 COVID-19 VACCINE - (MODERNA) Unknown Completed [facility] DTaP, Unspecified Formulation Unknown Completed [facility] HEPATITIS A Unknown Completed [facility] Hep B, Adol or Pedi Dosage Unknown Completed [facility] HIB 4 Dose Schedule Unknown Completed [facility] MMR Unknown Completed [facility] IPV Unknown Completed [facility] Poliovirus, Live, Oral, Trivalent Unknown Completed [facility] Tetanus/Diptheria Unknown Completed [facility] HPV Unknown Completed [facility] Meningococcal Polysaccharide (groups A, C, Y and W-135) conjugate vaccine (MCV4P) Unknown Completed [facility] Influenza Virus Vaccine Quad .5 mL IM 6+ MO (FLUZONE/FLULAVAL/FL UARIX) Unknown Completed [facility] TDAP (ADACEL) VACCINE Unknown Completed [facility] Varicella (varivax)(chicken pox) Unknown Completed [facility] SARS-COV-2 COVID-19 VACCINE - (MODERNA) Unknown Completed [facility] DTaP, Unspecified Formulation Unknown Completed [facility] HEPATITIS A Unknown Completed [facility] Hep B, Adol or Pedi Dosage Unknown Completed [facility] HIB 4 Dose Schedule Unknown Completed [facility] MMR Unknown Completed [facility] IPV Unknown Completed [facility] Poliovirus, Live, Oral, Trivalent Unknown Completed [facility]heria [facility] Meningococcal Polysaccharide (groups A, C, Y and W-135) conjugate vaccine (MCV4P) Unknown Completed [facility] Influenza Virus Vaccine Quad .5 mL IM 6+ MO (FLUZONE/FLULAVAL/FL UARIX) Unknown Completed [facility] TDAP (ADACEL) VACCINE Unknown Completed [facility] Varicella (varivax)(chicken pox) Unknown Completed [facility] SARS-COV-2 COVID-19 VACCINE - (MODERNA) Unknown Completed [facility] DTaP, Unspecified Formulation Unknown Completed [facility] HEPATITIS A Unknown Completed [facility] Hep B, Adol or Pedi Dosage Unknown Completed [facility] HIB 4 Dose Schedule Unknown Completed [facility] MMR Unknown Completed [facility] IPV Unknown Completed [facility] Poliovirus, Live, Oral, Trivalent Unknown Completed [facility] Tetanus/Diptheria Unknown Completed Un [facility] HPV Unknown Completed [facility] Meningococcal Polysaccharide (groups A, C, Y and W-135) conjugate vaccine (MCV4P) Unknown Completed [facility] Influenza Virus Vaccine Quad .5 mL IM 6+ MO (FLUZONE/FLULAVAL/FL UARIX) Unknown Completed [facility] TDAP (ADACEL) VACCINE Unknown Completed [facility] Varicella (varivax)(chicken pox) Unknown Completed [facility] SARS-COV-2 COVID-19 VACCINE - (MODERNA) Unknown Completed [facility] DTaP, Unspecified Formulation Unknown Completed [facility] HEPATITIS A Unknown Completed [facility] Hep B, Adol or Pedi Dosage Unknown Completed [facility] HIB 4 Dose Schedule Unknown Completed [facility] MMR Unknown Completed [facility] IPV Unknown Completed [facility] Poliovirus, Live, Oral, Trivalent Unknown Completed [facility] Tetanus[facility]iptheria [facility] Com[facility] Meningococcal Polysaccharide (groups A, C, Y and W-135) conjugate vaccine (MCV4P) Unknown Completed [facility] Influenza Virus Vaccine Quad .5 mL IM 6+ MO (FLUZONE/FLULAVAL/FL UARIX) Unknown Completed [facility] TDAP (ADACEL) VACCINE Unknown Completed [facility] Varicella (varivax)(chicken pox) Unknown Completed [facility] SARS-COV-2 COVID-19 VACCINE - (MODERNA) Unknown Completed [facility] DTaP, Unspecified Formulation Unknown Completed [facility] HEPATITIS A Unknown Completed [facility] Hep B, Adol or Pedi Dosage Unknown Completed [facility] HIB 4 Dose Schedule Unknown Completed [facility] MMR Unknown Completed [facility] IPV Unknown Completed [facility] Poliovirus, Live, Oral, Trivalent Unknown Completed [facility] Tetanus/Diptheria [facility] Com[facility] Meningococcal Polysaccharide (groups A, C, Y and W-135) conjugate vaccine (MCV4P) Unknown Completed [facility] Influenza Virus Vaccine Quad .5 mL IM 6+ MO (FLUZONE/FLULAVAL/FL UARIX) Unknown Completed [facility] TDAP (ADACEL) VACCINE Unknown Completed [facility] Varicella (varivax)(chicken pox) Unknown Completed [facility] SARS-COV-2 COVID-19 VACCINE - (MODERNA) Unknown Completed [facility] DTaP, Unspecified Formulation Unknown Completed [facility] HEPATITIS A Unknown Completed [facility] Hep B, Adol or Pedi Dosage Unknown Completed [facility] HIB 4 Dose Schedule Unknown Completed [facility] MMR Unknown Completed [facility] IPV Unknown Completed [facility] Poliovirus, Live, Oral, Trivalent Unknown Completed [facility] Tetanus/Diptheria [facility] Completed [facility] Meningococcal Polysaccharide (groups A, C, Y and W-135) conjugate vaccine (MCV4P) Unknown Completed [facility] TDAP (ADACEL) VACCINE Unknown Completed [facility] Influenza Virus Vaccine Quad .5 mL IM 6+ MO (FLUZONE/FLULAVAL/FL UARIX) Unknown Completed [facility] Varicella (varivax)(chicken pox) Unknown Completed [facility] SARS-COV-2 COVID-19 VACCINE - (MODERNA) Unknown Completed [facility] DTaP, Unspecified Formulation Unknown Completed [facility] HEPATITIS A Unknown Completed [facility] Hep B, Adol or Pedi Dosage Unknown Completed [facility] HIB 4 Dose Schedule Unknown Completed [facility] MMR Unknown Completed [facility] IPV Unknown Completed [facility] Poliovirus, Live, Oral, Trivalent Unknown Completed [facility] Tetanus/Diptheria [facility] Meningococcal Polysaccharide (groups A, C, Y and W-135) conjugate vaccine (MCV4P) Unknown Completed [facility] TDAP (ADACEL) VACCINE Unknown Completed [facility] Influenza Virus Vaccine Quad .5 mL IM 6+ MO (FLUZONE/FLULAVAL/FL UARIX) Unknown Completed [facility] Varicella (varivax)(chicken pox) Unknown Completed [facility] SARS-COV-2 COVID-19 VACCINE - (MODERNA) Unknown Completed [facility] DTaP, Unspecified Formulation Unknown Completed [facility] HEPATITIS A Unknown Completed [facility] Hep B, Adol or Pedi Dosage Unknown Completed [facility] HIB 4 Dose Schedule Unknown Completed [facility] MMR Unknown Completed [facility] IPV Unknown Completed [facility] Poliovirus, Live, Oral, Trivalent Unknown Completed [facility]ria [facility] Meningococcal Polysaccharide (groups A, C, Y and W-135) conjugate vaccine (MCV4P) Unknown Completed [facility] TDAP (ADACEL) VACCINE Unknown Completed [facility] Influenza Virus Vaccine Quad .5 mL IM 6+ MO (FLUZONE/FLULAVAL/FL UARIX) Unknown Completed [facility] Varicella (varivax)(chicken pox) Unknown Completed [facility] SARS-COV-2 COVID-19 VACCINE - (MODERNA) Unknown Completed [facility] DTaP, Unspecified Formulation Unknown Completed [facility] HEPATITIS A Unknown Completed [facility] Hep B, Adol or Pedi Dosage Unknown Completed [facility] HIB 4 Dose Schedule Unknown Completed [facility] MMR Unknown Completed [facility] IPV Unknown Completed [facility] Poliovirus, Live, Oral, Trivalent Unknown Completed [facility] Tetanus/Diptheria [facility] Quad IM, Preserv and ABX Free 6 MO-64 YRS (FLUCELVAX) Unknown Completed [facility] HPV Unknown Completed [facility] Meningococcal Polysaccharide (groups A, C, Y and W-135) conjugate vaccine (MCV4P) Unknown Completed [facility] TDAP (ADACEL) VACCINE Unknown Completed [facility] Influenza Virus Vaccine Quad .5 mL IM 6+ MO (FLUZONE/FLULAVAL/FL UARIX) Unknown Completed [facility] Varicella (varivax)(chicken pox) Unknown Completed [facility] SARS-COV-2 COVID-19 VACCINE - (MODERNA) Unknown Completed [facility] DTaP, Unspecified Formulation Unknown Completed [facility] HEPATITIS A Unknown Completed [facility] Hep B, Adol or Pedi Dosage Unknown Completed [facility] HIB 4 Dose Schedule Unknown Completed [facility] MMR Unknown Completed [facility] IPV Unknown Completed [facility] Poliovirus, Live, Oral, Trivalent Unknown Completed [facility] Tetanus/[facility]iptheria [facility] Quad IM, Preserv and ABX Free 6 MO-64 YRS (FLUCELVAX) Unknown Completed [facility] HPV Unknown Completed [facility] Meningococcal Polysaccharide (groups A, C, Y and W-135) conjugate vaccine (MCV4P) Unknown Completed [facility] TDAP (ADACEL) VACCINE Unknown Completed [facility] Influenza Virus Vaccine Quad .5 mL IM 6+ MO (FLUZONE/FLULAVAL/FL UARIX) Unknown Completed [facility] Varicella (varivax)(chicken pox) Unknown Completed [facility] SARS-COV-2 COVID-19 VACCINE - (MODERNA) Unknown Completed [facility] DTaP, Unspecified Formulation Unknown Completed [facility] HEPATITIS A Unknown Completed [facility] Hep B, Adol or Pedi Dosage Unknown Completed [facility] HIB 4 Dose Schedule Unknown Completed [facility] MMR Unknown Completed [facility] IPV Unknown Completed [facility] Poliovirus, Live, Oral, Trivalent Unknown Completed [facility] Tetanus/Diptheria [facility] Vacc[facility] Quad IM, Preserv and ABX Free 6 MO-64 YRS (FLUCELVAX) Unknown Completed [facility] HPV Unknown Completed [facility] Meningococcal Polysaccharide (groups A, C, Y and W-135) conjugate vaccine (MCV4P) Unknown Completed [facility] TDAP (ADACEL) VACCINE Unknown Completed [facility] Influenza Virus Vaccine Quad .5 mL IM 6+ MO (FLUZONE/FLULAVAL/FL UARIX) Unknown Completed [facility] Varicella (varivax)(chicken pox) Unknown Completed [facility] SARS-COV-2 COVID-19 VACCINE - (MODERNA) Unknown Completed [facility] DTaP, Unspecified Formulation Unknown Completed [facility] HEPATITIS A Unknown Completed [facility] Hep B, Adol or Pedi Dosage Unknown Completed [facility] HIB 4 Dose Schedule Unknown Completed [facility] MMR Unknown Completed [facility] IPV Unknown Completed [facility] Poliovirus, Live, Oral, Trivalent Unknown Completed [facility] Tetanus/Diptheria [facility] Vaccine Quad IM, Preserv and ABX Free 6 MO-64 YRS (FLUCELVAX) Unknown Completed [facility] HPV Unknown Completed [facility] Meningococcal Polysaccharide (groups A, C, Y and W-135) conjugate vaccine (MCV4P) Unknown Completed [facility] TDAP (ADACEL) VACCINE Unknown Completed [facility] Influenza Virus Vaccine Quad .5 mL IM 6+ MO (FLUZONE/FLULAVAL/FL UARIX) Unknown Completed [facility] Varicella (varivax)(chicken pox) Unknown Completed [facility] SARS-COV-2 COVID-19 VACCINE - (MODERNA) Unknown Completed [facility] DTaP, Unspecified Formulation Unknown Completed [facility] HEPATITIS A Unknown Completed [facility] Hep B, Adol or Pedi Dosage Unknown Completed [facility] HIB 4 Dose Schedule Unknown Completed [facility] MMR Unknown Completed [facility] IPV Unknown Completed [facility] Poliovirus, Live, Oral, Trivalent Unknown Completed [facility] Tetanus/Diptheria [facility] Vaccine Quad IM, Preserv and ABX Free 6 MO-64 YRS (FLUCELVAX) Unknown Completed [facility] HPV Unknown Completed [facility] Meningococcal Polysaccharide (groups A, C, Y and W-135) conjugate vaccine (MCV4P) Unknown Completed [facility] TDAP (ADACEL) VACCINE Unknown Completed [facility] Influenza Virus Vaccine Quad .5 mL IM 6+ MO (FLUZONE/FLULAVAL/FL UARIX) Unknown Completed [facility] Varicella (varivax)(chicken pox) Unknown Completed [facility] SARS-COV-2 COVID-19 VACCINE - (MODERNA) Unknown Completed [facility] DTaP, Unspecified Formulation Unknown Completed [facility] HEPATITIS A Unknown Completed [facility] Hep B, Adol or Pedi Dosage Unknown Completed [facility] HIB 4 Dose Schedule Unknown Completed [facility] MMR Unknown Completed [facility] IPV Unknown Completed [facility] Poliovirus, Live, Oral, Trivalent Unknown Completed [facility] Tetanus/Diptheria Unknown Completed Un [facility] Influenza Virus Vaccine Quad IM, Preserv and ABX Free 6 MO-64 YRS (FLUCELVAX) Unknown Completed [facility] HPV Unknown Completed [facility] Meningococcal Polysaccharide (groups A, C, Y and W-135) conjugate vaccine (MCV4P) Unknown Completed [facility] TDAP (ADACEL) VACCINE Unknown Completed [facility] Influenza Virus Vaccine Quad .5 mL IM 6+ MO (FLUZONE/FLULAVAL/FL UARIX) Unknown Completed [facility] Varicella (varivax)(chicken pox) Unknown Completed [facility] SARS-COV-2 COVID-19 VACCINE - (MODERNA) Unknown Completed [facility] DTaP, Unspecified Formulation Unknown Completed [facility] HEPATITIS A Unknown Completed [facility] Hep B, Adol or Pedi Dosage Unknown Completed [facility] HIB 4 Dose Schedule Unknown Completed [facility] MMR Unknown Completed [facility] IPV Unknown Completed [facility] Poliovirus, Live, Oral, Trivalent Unknown Completed [facility] Tetanus/Diptheria [facility] Vaccine Quad IM, Preserv and ABX Free 6 MO-64 YRS (FLUCELVAX) Unknown Completed [facility] HPV Unknown Completed [facility] Meningococcal Polysaccharide (groups A, C, Y and W-135) conjugate vaccine (MCV4P) Unknown Completed [facility] TDAP (ADACEL) VACCINE Unknown Completed [facility] Influenza Virus Vaccine Quad .5 mL IM 6+ MO (FLUZONE/FLULAVAL/FL UARIX) Unknown Completed [facility] Varicella (varivax)(chicken pox) Unknown Completed [facility] SARS-COV-2 COVID-19 VACCINE - (MODERNA) Unknown Completed [facility] DTaP, Unspecified Formulation Unknown Completed [facility] HEPATITIS A Unknown Completed [facility] Hep B, Adol or Pedi Dosage Unknown Completed [facility] HIB 4 Dose Schedule Unknown Completed [facility] MMR Unknown Completed [facility] IPV Unknown Completed [facility] Poliovirus, Live, Oral, Trivalent Unknown Completed [facility] Tetanus/Diptheria [facility] Vaccine Quad IM, Preserv and ABX Free 6 MO-64 YRS (FLUCELVAX) Unknown Completed [facility] HPV Unknown Completed [facility] Meningococcal Polysaccharide (groups A, C, Y and W-135) conjugate vaccine (MCV4P) Unknown Completed [facility] TDAP (ADACEL) VACCINE Unknown Completed [facility] Influenza Virus Vaccine Quad .5 mL IM 6+ MO (FLUZONE/FLULAVAL/FL UARIX) Unknown Completed [facility] Varicella (varivax)(chicken pox) Unknown Completed [facility] SARS-COV-2 COVID-19 VACCINE - (MODERNA) Unknown Completed [facility] DTaP, Unspecified Formulation Unknown Completed [facility] HEPATITIS A Unknown Completed [facility] Hep B, Adol or Pedi Dosage Unknown Completed [facility] HIB 4 Dose Schedule Unknown Completed [facility] MMR Unknown Completed [facility] IPV Unknown Completed [facility] Poliovirus, Live, Oral, Trivalent Unknown Completed [facility] Tetanus/Diptheria [facility] Virus Vaccine Quad IM, Preserv and ABX Free 6 MO-64 YRS (FLUCELVAX) Unknown Completed [facility] HPV Unknown Completed [facility] Meningococcal Polysaccharide (groups A, C, Y and W-135) conjugate vaccine (MCV4P) Unknown Completed [facility] TDAP (ADACEL) VACCINE Unknown Completed [facility] Influenza Virus Vaccine Quad .5 mL IM 6+ MO (FLUZONE/FLULAVAL/FL UARIX) Unknown Completed [facility] Varicella (varivax)(chicken pox) Unknown Completed [facility] SARS-COV-2 COVID-19 VACCINE - (MODERNA) Unknown Completed [facility] DTaP, Unspecified Formulation Unknown Completed [facility] HEPATITIS A Unknown Completed [facility] Hep B, Adol or Pedi Dosage Unknown Completed [facility] HIB 4 Dose Schedule Unknown Completed [facility] MMR Unknown Completed [facility] IPV Unknown Completed [facility] Poliovirus, Live, Oral, Trivalent Unknown Completed [facility] Tetanus/Diptheria Unknown Completed Un [facility] Influenza Virus Vaccine Quad IM, Preserv and ABX Free 6 MO-64 YRS (FLUCELVAX) Unknown Completed [facility] HPV Unknown Completed [facility] Meningococcal Polysaccharide (groups A, C, Y and W-135) conjugate vaccine (MCV4P) Unknown Completed [facility] TDAP (ADACEL) VACCINE Unknown Completed [facility] Influenza Virus Vaccine Quad .5 mL IM 6+ MO (FLUZONE/FLULAVAL/FL UARIX) Unknown Completed [facility] Varicella (varivax)(chicken pox) Unknown Completed [facility] SARS-COV-2 COVID-19 VACCINE - (MODERNA) Unknown Completed [facility] DTaP, Unspecified Formulation Unknown Completed [facility] HEPATITIS A Unknown Completed [facility] Hep B, Adol or Pedi Dosage Unknown Completed [facility] HIB 4 Dose Schedule Unknown Completed [facility] MMR Unknown Completed [facility] IPV Unknown Completed [facility] Poliovirus, Live, Oral, Trivalent Unknown Completed [facility] Tetanus/Diptheria [facility] Vaccine Quad IM, Preserv and ABX Free 6 MO-64 YRS (FLUCELVAX) Unknown Completed [facility] HPV Unknown Completed [facility] Meningococcal Polysaccharide (groups A, C, Y and W-135) conjugate vaccine (MCV4P) Unknown Completed [facility] TDAP (ADACEL) VACCINE Unknown Completed [facility] Influenza Virus Vaccine Quad .5 mL IM 6+ MO (FLUZONE/FLULAVAL/FL UARIX) Unknown Completed [facility] Varicella (varivax)(chicken pox) Unknown Completed [facility] SARS-COV-2 COVID-19 VACCINE - (MODERNA) Unknown Completed [facility] DTaP, Unspecified Formulation Unknown Completed [facility] HEPATITIS A Unknown Completed [facility] Hep B, Adol or Pedi Dosage Unknown Completed [facility] HIB 4 Dose Schedule Unknown Completed [facility] MMR Unknown Completed [facility] IPV Unknown Completed [facility] Poliovirus, Live, Oral, Trivalent Unknown Completed [facility] Tetanus/Diptheria [facility] Virus Vaccine Quad IM, Preserv and ABX Free 6 MO-64 YRS (FLUCELVAX) Unknown Completed [facility] HPV Unknown Completed [facility] Meningococcal Polysaccharide (groups A, C, Y and W-135) conjugate vaccine (MCV4P) Unknown Completed [facility] TDAP (ADACEL) VACCINE Unknown Completed [facility] Influenza Virus Vaccine Quad .5 mL IM 6+ MO (FLUZONE/FLULAVAL/FL UARIX) Unknown Completed [facility] Varicella (varivax)(chicken pox) Unknown Completed [facility] SARS-COV-2 COVID-19 VACCINE - (MODERNA) Unknown Completed [facility] DTaP, Unspecified Formulation Unknown Completed [facility] HEPATITIS A Unknown Completed [facility] Hep B, Adol or Pedi Dosage Unknown Completed [facility] HIB 4 Dose Schedule Unknown Completed [facility] MMR Unknown Completed [facility] IPV Unknown Completed [facility] Poliovirus, Live, Oral, Trivalent Unknown Completed [facility] Tetanus/Diptheria [facility] Virus Vaccine Quad IM, Preserv and ABX Free 6 MO-64 YRS (FLUCELVAX) Unknown Completed [facility] HPV Unknown Completed [facility] Meningococcal Polysaccharide (groups A, C, Y and W-135) conjugate vaccine (MCV4P) Unknown Completed [facility] TDAP (ADACEL) VACCINE Unknown Completed [facility] Influenza Virus Vaccine Quad .5 mL IM 6+ MO (FLUZONE/FLULAVAL/FL UARIX) Unknown Completed [facility] Varicella (varivax)(chicken pox) Unknown Completed [facility] SARS-COV-2 COVID-19 VACCINE - (MODERNA) Unknown Completed [facility] DTaP, Unspecified Formulation Unknown Completed [facility] HEPATITIS A Unknown Completed [facility] Hep B, Adol or Pedi Dosage Unknown Completed [facility] HIB 4 Dose Schedule Unknown Completed [facility] MMR Unknown Completed [facility] IPV Unknown Completed [facility] Poliovirus, Live, Oral, Trivalent Unknown Completed [facility] Tetanus/Diptheria [facility] Virus Vaccine Quad IM, Preserv and ABX Free 6 MO-64 YRS (FLUCELVAX) Unknown Completed [facility] HPV Unknown Completed [facility] Meningococcal Polysaccharide (groups A, C, Y and W-135) conjugate vaccine (MCV4P) Unknown Completed [facility] TDAP (ADACEL) VACCINE Unknown Completed [facility] Influenza Virus Vaccine Quad .5 mL IM 6+ MO (FLUZONE/FLULAVAL/FL UARIX) Unknown Completed [facility] Varicella (varivax)(chicken pox) Unknown Completed [facility] SARS-COV-2 COVID-19 VACCINE - (MODERNA) Unknown Completed [facility] DTaP, Unspecified Formulation Unknown Completed [facility] HEPATITIS A Unknown Completed [facility] Hep B, Adol or Pedi Dosage Unknown Completed [facility] HIB 4 Dose Schedule Unknown Completed [facility] MMR Unknown Completed [facility] IPV Unknown Completed [facility] Poliovirus, Live, Oral, Trivalent Unknown Completed [facility] Tetanus/Diptheria [facility] Virus Vaccine Quad IM, Preserv and ABX Free 6 MO-64 YRS (FLUCELVAX) Unknown Completed [facility] HPV Unknown Completed [facility] Meningococcal Polysaccharide (groups A, C, Y and W-135) conjugate vaccine (MCV4P) Unknown Completed [facility] TDAP (ADACEL) VACCINE Unknown Completed [facility] Influenza Virus Vaccine Quad .5 mL IM 6+ MO (FLUZONE/FLULAVAL/FL UARIX) Unknown Completed [facility] Varicella (varivax)(chicken pox) Unknown Completed [facility] SARS-COV-2 COVID-19 VACCINE - (MODERNA) Unknown Completed [facility] DTaP, Unspecified Formulation Unknown Completed [facility] HEPATITIS A Unknown Completed [facility] Hep B, Adol or Pedi Dosage Unknown Completed [facility] HIB 4 Dose Schedule Unknown Completed [facility] MMR Unknown Completed [facility] IPV Unknown Completed [facility] Poliovirus, Live, Oral, Trivalent Unknown Completed [facility] Tetanus/Diptheria Unknown Completed Un [facility] Influenza Virus Vaccine Quad IM, Preserv and ABX Free 6 MO-64 YRS (FLUCELVAX) Unknown Completed [facility] HPV Unknown Completed [facility] Meningococcal Polysaccharide (groups A, C, Y and W-135) conjugate vaccine (MCV4P) Unknown Completed [facility] TDAP (ADACEL) VACCINE Unknown Completed [facility] Influenza Virus Vaccine Quad .5 mL IM 6+ MO (FLUZONE/FLULAVAL/FL UARIX) Unknown Completed [facility] Varicella (varivax)(chicken pox) Unknown Completed [facility] SARS-COV-2 COVID-19 VACCINE - (MODERNA) Unknown Completed [facility] DTaP, Unspecified Formulation Unknown Completed [facility] HEPATITIS A Unknown Completed [facility] Hep B, Adol or Pedi Dosage Unknown Completed [facility] HIB 4 Dose Schedule Unknown Completed [facility] MMR Unknown Completed [facility] IPV Unknown Completed [facility] Poliovirus, Live, Oral, Trivalent Unknown Completed [facility] Tetanus/Diptheria [facility] Virus Vaccine Quad IM, Preserv and ABX Free 6 MO-64 YRS (FLUCELVAX) Unknown Completed [facility] HPV Unknown Completed [facility] Meningococcal Polysaccharide (groups A, C, Y and W-135) conjugate vaccine (MCV4P) Unknown Completed [facility] TDAP (ADACEL) VACCINE Unknown Completed [facility] Influenza Virus Vaccine Quad .5 mL IM 6+ MO (FLUZONE/FLULAVAL/FL UARIX) Unknown Completed [facility] Varicella (varivax)(chicken pox) Unknown Completed [facility] SARS-COV-2 COVID-19 VACCINE - (MODERNA) Unknown Completed [facility] DTaP, Unspecified Formulation Unknown Completed [facility] HEPATITIS A Unknown Completed [facility] Hep B, Adol or Pedi Dosage Unknown Completed [facility] HIB 4 Dose Schedule Unknown Completed [facility] MMR Unknown Completed [facility] IPV Unknown Completed [facility] Poliovirus, Live, Oral, Trivalent Unknown Completed [facility] Tetanus/Diptheria [facility] Virus Vaccine Quad IM, Preserv and ABX Free 6 MO-64 YRS (FLUCELVAX) Unknown Completed [facility] HPV Unknown Completed [facility] Meningococcal Polysaccharide (groups A, C, Y and W-135) conjugate vaccine (MCV4P) Unknown Completed [facility] TDAP (ADACEL) VACCINE Unknown Completed [facility] Influenza Virus Vaccine Quad .5 mL IM 6+ MO (FLUZONE/FLULAVAL/FL UARIX) Unknown Completed [facility] Varicella (varivax)(chicken pox) Unknown Completed [facility] SARS-COV-2 COVID-19 VACCINE - (MODERNA) Unknown Completed [facility] DTaP, Unspecified Formulation Unknown Completed [facility] HEPATITIS A Unknown Completed [facility] Hep B, Adol or Pedi Dosage Unknown Completed [facility] HIB 4 Dose Schedule Unknown Completed [facility] MMR Unknown Completed [facility] IPV Unknown Completed [facility] Poliovirus, Live, Oral, Trivalent Unknown Completed [facility]heria [facility] Quad IM, Preserv and ABX Free 6 MO-64 YRS (FLUCELVAX) Unknown Completed [facility] HPV Unknown Completed [facility] Meningococcal Polysaccharide (groups A, C, Y and W-135) conjugate vaccine (MCV4P) Unknown Completed [facility] TDAP (ADACEL) VACCINE Unknown Completed [facility] Influenza Virus Vaccine Quad .5 mL IM 6+ MO (FLUZONE/FLULAVAL/FL UARIX) Unknown Completed [facility] Varicella (varivax)(chicken pox) Unknown Completed [facility] SARS-COV-2 COVID-19 VACCINE - (MODERNA) Unknown Completed [facility] DTaP, Unspecified Formulation Unknown Completed [facility] HEPATITIS A Unknown Completed [facility] Hep B, Adol or Pedi Dosage Unknown Completed [facility] HIB 4 Dose Schedule Unknown Completed [facility] MMR Unknown Completed [facility] IPV Unknown Completed [facility] Poliovirus, Live, Oral, Trivalent Unknown Completed [facility] Tetanus/[facility]heria [facility] Quad IM, Preserv and ABX Free 6 MO-64 YRS (FLUCELVAX) Unknown Completed [facility] HPV Unknown Completed [facility] Meningococcal Polysaccharide (groups A, C, Y and W-135) conjugate vaccine (MCV4P) Unknown Completed [facility] TDAP (ADACEL) VACCINE Unknown Completed [facility] Influenza Virus Vaccine Quad .5 mL IM 6+ MO (FLUZONE/FLULAVAL/FL UARIX) Unknown Completed [facility] Varicella (varivax)(chicken pox) Unknown Completed [facility] SARS-COV-2 COVID-19 VACCINE - (MODERNA) Unknown Completed [facility] DTaP, Unspecified Formulation Unknown Completed [facility] HEPATITIS A Unknown Completed [facility] Hep B, Adol or Pedi Dosage Unknown Completed [facility] HIB 4 Dose Schedule Unknown Completed [facility] MMR Unknown Completed [facility] IPV Unknown Completed [facility] Poliovirus, Live, Oral, Trivalent Unknown Completed [facility] Tetanus/Diptheria [facility] Influ[facility] Virus Vaccine Quad IM, Preserv and ABX Free 6 MO-64 YRS (FLUCELVAX) Unknown Completed [facility] HPV Unknown Completed [facility] Meningococcal Polysaccharide (groups A, C, Y and W-135) conjugate vaccine (MCV4P) Unknown Completed [facility] TDAP (ADACEL) VACCINE Unknown Completed [facility] Influenza Virus Vaccine Quad .5 mL IM 6+ MO (FLUZONE/FLULAVAL/FL UARIX) Unknown Completed [facility] Varicella (varivax)(chicken pox) Unknown Completed [facility] SARS-COV-2 COVID-19 VACCINE - (MODERNA) Unknown Completed [facility] DTaP, Unspecified Formulation Unknown Completed [facility] HEPATITIS A Unknown Completed [facility] Hep B, Adol or Pedi Dosage Unknown Completed [facility] HIB 4 Dose Schedule Unknown Completed [facility] MMR Unknown Completed [facility] IPV Unknown Completed [facility] Poliovirus, Live, Oral, Trivalent Unknown Completed [facility] Tetanus/Diptheria Unknown [facility] Influ[facility] Virus Vaccine Quad IM, Preserv and ABX Free 6 MO-64 YRS (FLUCELVAX) Unknown Completed [facility] HEPATITIS A Unknown Completed [facility] Tetanus/Diptheria Unknown [facility] Influ[facility] Virus Vaccine Quad IM, Preserv and ABX Free 6 MO-64 YRS (FLUCELVAX) Unknown Completed [facility] DTAP Unknown Completed [facility] HIB 4 Dose Schedule Unknown Completed [facility] Hep B, Adol or Pedi Dosage Unknown Completed [facility] Polio (IPV/OPV) Unknown [facility] MMR Unknown Completed [facility] Varicella (varivax)(chicken pox) Unknown Completed [facility] HPV Unknown Completed [facility] Meningococcal Polysaccharide (groups A, C, Y and W-135) conjugate vaccine (MCV4P) Unknown Completed [facility] TDAP (ADACEL) VACCINE Unknown Completed [facility] Influenza Virus Vaccine Quad .5 mL IM 6+ MO (FLUZONE/FLULAVAL/FL UARIX) Unknown Completed [facility] SARS-COV-2 COVID-19 VACCINE - (MODERNA) Unknown Completed [facility] DTaP, Unspecified Formulation Unknown Completed [facility] IPV Unknown Completed [facility] Poliovirus, Live, Oral, Trivalent Unknown Completed [facility] HPV Unknown Completed [facility] Meningococcal Polysaccharide (groups A, C, Y and W-135) conjugate vaccine (MCV4P) Unknown Completed [facility] TDAP (ADACEL) VACCINE Unknown Completed [facility] Influenza Virus Vaccine Quad .5 mL IM 6+ MO (FLUZONE/FLULAVAL/FL UARIX) Unknown Completed [facility] Varicella (varivax)(chicken pox) Unknown Completed [facility] SARS-COV-2 COVID-19 VACCINE - (MODERNA) Unknown Completed [facility] DTaP, Unspecified Formulation Unknown Completed [facility] HEPATITIS A Unknown Completed [facility] Hep B, Adol or Pedi Dosage Unknown Completed [facility] HIB 4 Dose Schedule Unknown Completed [facility] MMR Unknown Completed [facility] IPV Unknown Completed [facility] Poliovirus, Live, Oral, Trivalent Unknown Completed [facility] Tetanus/Diptheria Unknown Completed [facility] Influenza Virus Vaccine Quad IM, Preserv and ABX Free 6 MO-64 YRS (FLUCELVAX) Unknown Completed [facility] HPV Unknown Completed [facility] Meningococcal Polysaccharide (groups A, C, Y and W-135) conjugate vaccine (MCV4P) Unknown Completed [facility] TDAP (ADACEL) VACCINE Unknown Completed [facility] Influenza Virus Vaccine Quad .5 mL IM 6+ MO (FLUZONE/FLULAVAL/FL UARIX) Unknown Completed [facility] Varicella (varivax)(chicken pox) Unknown Completed [facility] SARS-COV-2 COVID-19 VACCINE - (MODERNA) Unknown Completed [facility] DTaP, Unspecified Formulation Unknown Completed [facility] HEPATITIS A Unknown Completed [facility] Hep B, Adol or Pedi Dosage Unknown Completed [facility] HIB 4 Dose Schedule Unknown Completed [facility] MMR Unknown Completed [facility] IPV Unknown Completed [facility] Poliovirus, Live, Oral, Trivalent Unknown Completed [facility] Tetanus/Diptheria [facility]ine Quad IM, Preserv and ABX Free 6 MO-64 YRS (FLUCELVAX) Unknown Completed [facility] HPV Unknown Completed [facility] Meningococcal Polysaccharide (groups A, C, Y and W-135) conjugate vaccine (MCV4P) Unknown Completed [facility] TDAP (ADACEL) VACCINE Unknown Completed [facility] Influenza Virus Vaccine Quad .5 mL IM 6+ MO (FLUZONE/FLULAVAL/FL UARIX) Unknown Completed [facility] Varicella (varivax)(chicken pox) Unknown Completed [facility] SARS-COV-2 COVID-19 VACCINE - (MODERNA) Unknown Completed [facility] DTaP, Unspecified Formulation Unknown Completed [facility] HEPATITIS A Unknown Completed [facility] Hep B, Adol or Pedi Dosage Unknown Completed [facility] HIB 4 Dose Schedule Unknown Completed [facility] MMR Unknown Completed [facility] IPV Unknown Completed [facility] Poliovirus, Live, Oral, Trivalent Unknown Completed [facility] Tetanus/Diptheria [facility] Influ[facility] Virus Vaccine Quad IM, Preserv and ABX Free 6 MO-64 YRS (FLUCELVAX) Unknown Completed [facility] Vital Signs Vital Name Observation Time Observation Value Comments S ource Systolic blood pressure 2024-04-19 18:11:00 126 mm[Hg] [facility] Diastolic blood pressure 2024-04-19 18:11:00 75 mm[Hg] [facility] Heart rate 2024-04-19 18:11:00 93 /min [facility] Body temperature 2024-04-19 18:11:00 37 [place] [facility] Respiratory rate 2024-04-19 18:11:00 14 /min [facility] Body height 2024-04-19 18:11:00 165.1 cm [facility] Body weight 2024-04-19 18:11:00 102.059 kg [facility] BMI 2024-04-19 18:11:00 37.44 kg/m2 [facility] Oxygen saturation in Arterial blood by Pulse oximetry 2024-04-19 18:11:00 100 /min [facility] Systolic blood pressure 2023-10-10 17:38:00 102 mm[Hg] [facility] Diastolic blood pressure 2023-10-10 17:38:00 78 mm[Hg] [facility] Heart rate 2023-10-10 17:38:00 84 /min [facility] Respiratory rate 2023-10-10 17:38:00 18 /min [facility] Body weight 2023-10-10 17:38:00 92.987 kg [facility] BMI 2023-10-10 17:38:00 34.11 kg/m2 [facility] Oxygen saturation in Arterial blood by Pulse oximetry 2023-10-10 17:38:00 99 /min [facility] Systolic blood pressure 2023-09-27 13:45:00 105 mm[Hg] [facility] Diastolic blood pressure 2023-09-27 13:45:00 52 mm[Hg] [facility] Heart rate 2023-09-27 13:45:00 63 /min [facility] Body temperature 2023-09-27 13:45:00 36.61 [place] [facility] Respiratory rate 2023-09-27 13:45:00 16 /min [facility] Oxygen saturation in Arterial blood by Pulse oximetry 2023-09-27 13:45:00 99 /min [facility] Body weight 2023-09-26 14:00:00 103 kg [facility] BMI 2023-09-26 14:00:00 37.79 kg/m2 [facility] Systolic blood pressure 2023-09-18 21:43:00 119 mm[Hg] [facility] Diastolic blood pressure 2023-09-18 21:43:00 75 mm[Hg] [facility] Heart rate 2023-09-18 21:43:00 86 /min [facility] Body temperature 2023-09-18 21:43:00 36.78 [place] [facility] Respiratory rate 2023-09-18 21:43:00 18 /min [facility] Body height 2023-09-18 21:43:00 165.1 cm [facility] Body weight 2023-09-18 21:43:00 102.241 kg [facility] BMI 2023-09-18 21:43:00 37.51 kg/m2 [facility] Oxygen saturation in Arterial blood by Pulse oximetry 2023-09-18 21:43:00 100 /min [facility] Systolic blood pressure 2023-09-16 09:30:00 118 mm[Hg] [facility] Diastolic blood pressure 2023-09-16 09:30:00 70 mm[Hg] [facility] Heart rate 2023-09-16 09:30:00 93 /min [facility] Body temperature 2023-09-16 09:30:00 36.83 Ros[place] [facility] Oxygen saturation in Arterial blood by Pulse oximetry 2023-09-16 09:30:00 100 /min [facility] Respiratory rate 2023-09-16 07:45:00 17 /min [facility] Systolic blood pressure 2023-09-11 22:18:00 125 mm[Hg] [facility] Diastolic blood pressure 2023-09-11 22:18:00 73 mm[Hg] [facility] Heart rate 2023-09-11 22:18:00 86 /[facility] 2023-09-11 22:18:00 37.28 Ros[place] [facility] Respiratory rate 2023-09-11 22:18:00 16 /min [facility] Body weight 2023-09-11 22:18:[address] [facility] BMI 2023-09-11 22:18:00 36.18 kg/m2 [facility] Oxygen saturation in Arterial blood by Pulse oximetry 2023-09-11 22:18:00 100 /min [facility] Systolic blood pressure 2023-09-08 03:30:00 125 mm[Hg] [facility] Diastolic blood pressure 2023-09-08 03:30:00 65 mm[Hg] [facility] Heart rate 2023-09-08 03:30:00 92 /min [facility] Oxygen saturation in Arterial blood by Pulse oximetry 2023-09-08 03:30:00 100 /min [facility] Body temperature 2023-09-08 02:40:00 36.61 [place] [facility] Respiratory rate 2023-09-08 02:40:00 17 /min [facility] Systolic blood pressure 2023-09-03 22:00:00 112 mm[Hg] [facility] Diastolic blood pressure 2023-09-03 22:00:00 70 mm[Hg] [facility] Heart rate 2023-09-03 22:00:00 109 /min [facility] Oxygen saturation in Arterial blood by Pulse oximetry 2023-09-03 22:00:00 100 /min [facility] Body temperature 2023-09-03 21:37:00 36.78 [place] [facility] Respiratory rate 2023-09-03 21:37:00 16 /min [facility] Body height 2023-09-03 21:13:[address] [facility] Body weight 2023-09-03 21:13:[address] [facility] BMI 2023-09-03 21:13:00 35.51 kg/m2 [facility] Systolic blood pressure 2023-09-02 20:21:00 113 mm[Hg] [facility] Diastolic blood pressure 2023-09-02 20:21:00 67 mm[Hg] [facility] Heart rate 2023-09-02 20:21:00 93 /min [facility] Body [facility] 2023-09-02 20:21:00 36.83 [place] [facility] Respiratory rate 2023-09-02 20:21:00 16 /min [facility] Body height 2023-09-02 20:21:[address] [facility] Body weight 2023-09-02 20:21:[address] [facility] BMI 2023-09-02 20:21:00 34.95 kg/m2 [facility] Oxygen saturation in Arterial blood by Pulse oximetry 2023-09-02 20:21:00 97 /min [facility] Systolic blood pressure 2023-08-28 17:08:00 108 mm[Hg] [facility] Diastolic blood pressure 2023-08-28 17:08:00 69 mm[Hg] [facility] Heart rate 2023-08-28 17:08:00 90 /min [facility] Body temperature 2023-08-28 17:08:00 36.5 Roselia [facility] Body height 2023-08-28 17:08:[address] [facility] Body weight 2023-08-28 17:08:[address] [facility] BMI 2023-08-28 17:08:00 34.65 kg/m2 [facility] Heart rate 2023-08-22 18:00:00 84 /min [facility] Oxygen saturation in Arterial blood by Pulse oximetry 2023-08-22 18:00:00 99 /min [facility] Systolic blood pressure 2023-08-22 17:00:00 123 mm[Hg] [facility] Diastolic blood pressure 2023-08-22 17:00:00 63 mm[Hg] [facility] Body temperature 2023-08-22 17:00:00 36.06 Ros[place] [facility] Respiratory rate 2023-08-22 17:00:00 16 /min [facility] Body weight 2023-08-20 21:50:00 99.542 [facility] 2023-08-20 21:50:00 36.52 kg/m2 [facility] Body height 2023-08-20 21:01:[address] [facility] Systolic blood pressure 2023-08-04 16:25:00 108 mm[Hg] [facility] Diastolic blood pressure 2023-08-04 16:25:00 64 mm[Hg] [facility] Heart rate 2023-08-04 16:25:00 87 /min [facility] Body temperature 2023-08-04 16:25:00 36.56 [place] [facility] Respiratory rate 2023-08-04 16:25:00 18 /min [facility] Body height 2023-08-04 16:25:[address] [facility] Body weight 2023-08-04 16:25:00 94.802 kg [facility] BMI 2023-08-04 16:25:00 34.78 kg/m2 [facility] Oxygen saturation in Arterial blood by Pulse oximetry 2023-08-04 16:25:00 99 /min [facility] Heart rate 2023-07-29 09:45:00 92 /min [facility] Oxygen saturation in Arterial blood by Pulse oximetry 2023-07-29 09:45:00 100 /min [facility] Body height 2023-07-29 09:38:[address] [facility] Body weight 2023-07-29 09:38:00 97.614 kg [facility] BMI 2023-07-29 09:38:00 35.81 kg/m2 [facility] Systolic blood pressure 2023-07-29 09:30:00 119 mm[Hg] [facility] Diastolic blood pressure 2023-07-29 09:30:00 64 mm[Hg] [facility] Body temperature 2023-07-29 09:30:00 36.67 [place] [facility] Heart rate 2023-06-14 20:00:00 63 /min [facility] Oxygen saturation in Arterial blood by Pulse oximetry 2023-06-14 20:00:00 100 /min [facility] Systolic blood pressure 2023-06-14 18:02:00 112 mm[Hg] [facility] Diastolic blood pressure 2023-06-14 18:02:00 58 mm[Hg] [facility] Body temperature 2023-06-14 18:02:00 36.89 [place] [facility] Respiratory rate 2023-06-14 18:02:00 16 /min [facility] Body height 2023-06-14 17:49:00 165.1 cm [facility] Body weight 2023-06-14 17:49:00 93.35 kg [facility] BMI 2023-06-14 17:49:00 34.25 kg/m2 [facility] Systolic blood pressure 2023-05-03 22:46:00 117 mm[Hg] [facility] Diastolic blood pressure 2023-05-03 22:46:00 70 mm[Hg] [facility] Heart rate 2023-05-03 22:46:00 94 /min [facility] Body temperature 2023-05-03 22:46:00 36.67 [place] [facility] Respiratory rate 2023-05-03 22:46:00 18 /min [facility] Oxygen saturation in Arterial blood by Pulse oximetry 2023-05-03 22:46:00 99 /min [facility] Heart rate 2023-04-18 21:00:00 77 /min [facility] Oxygen saturation in Arterial blood by Pulse oximetry 2023-04-18 21:00:00 100 /min [facility] Systolic blood pressure 2023-04-18 20:00:00 138 mm[Hg] [facility] Diastolic blood pressure 2023-04-18 20:00:00 75 mm[Hg] [facility] Body temperature 2023-04-18 17:42:00 37.33 [place] [facility] Respiratory rate 2023-04-18 17:42:00 16 /min [facility] Body height 2023-04-18 17:42:[address] [facility] Body weight 2023-04-18 17:42:[address] [facility] BMI 2023-04-18 17:42:00 34.11 kg/m2 [facility] Systolic blood pressure 2023-04-02 13:43:00 122 mm[Hg] [facility] Diastolic blood pressure 2023-04-02 13:43:00 62 mm[Hg] [facility] Heart rate 2023-04-02 13:43:00 98 /min [facility] Body temperature 2023-04-02 13:43:00 36.61 [place] [facility] Respiratory rate 2023-04-02 13:43:00 18 /min [facility] Body height 2023-04-02 13:43:[address] [facility] Body weight 2023-04-02 13:43:[address] [facility] BMI 2023-04-02 13:43:00 34.70 kg/m2 [facility] Systolic blood pressure 2023-03-11 18:08:00 119 mm[Hg] [facility] Diastolic blood pressure 2023-03-11 18:08:00 68 mm[Hg] [facility] Heart rate 2023-03-11 18:08:00 87 /min [facility] Body temperature 2023-03-11 18:08:00 36.78 [place] [facility] Respiratory rate 2023-03-11 18:08:00 18 /min [facility] Body height 2023-03-11 18:08:[address] [facility] Body weight 2023-03-11 18:08:[address] [facility] BMI 2023-03-11 18:08:00 34.13 kg/m2 [facility] Systolic blood pressure 2023-02-11 18:05:00 112 mm[Hg] [facility] Diastolic blood pressure 2023-02-11 18:05:00 64 mm[Hg] [facility] Heart rate 2023-02-11 18:05:00 73 /min [facility] Body temperature 2023-02-11 18:05:00 36.78 [place] [facility] Respiratory rate 2023-02-11 18:05:00 18 /min [facility] Body height 2023-02-11 18:05:00 165.1 cm [facility] Body weight 2023-02-11 18:05:00 88.508 kg [facility] BMI 2023-02-11 18:05:00 32.47 kg/m2 [facility] Systolic blood pressure 2022-01-17 03:00:00 119 mm[Hg] [facility] Diastolic blood pressure 2022-01-17 03:00:00 62 mm[Hg] [facility] Heart rate 2022-01-17 03:00:00 68 /min [facility] Respiratory rate 2022-01-17 03:00:00 16 /min [facility] Oxygen saturation in Arterial blood by Pulse oximetry 2022-01-17 03:00:00 100 /min [facility] Body temperature 2022-01-17 02:03:00 37.28 [place] [facility] Body height 2022-01-17 02:03:00 165.1 cm [facility] Body weight 2022-01-17 02:03:00 90.719 kg [facility] BMI 2022-01-17 02:03:00 33.28 kg/m2 [facility] Systolic blood pressure 2019-05-27 20:39:00 107 mm[Hg] [facility] Diastolic blood pressure 2019-05-27 20:39:00 63 mm[Hg] [facility] Heart rate 2019-05-27 20:39:00 77 /min [facility] Body temperature 2019-05-27 20:39:00 36.94 [place] [facility] Respiratory rate 2019-05-27 20:39:00 18 /min [facility] Body height 2019-05-27 20:39:00 165.1 cm [facility] Body weight 2019-05-27 20:39:00 98.431 kg [facility] BMI 2019-05-27 20:39:00 36.11 kg/m2 [facility] Systolic blood pressure 2019-05-27 20:39:00 107 mm[Hg] [facility] Diastolic blood pressure 2019-05-27 20:39:00 63 mm[Hg] [facility] Heart rate 2019-05-27 20:39:00 77 /min [facility] Body temperature 2019-05-27 20:39:00 36.94 [place] [facility] Respiratory rate 2019-05-27 20:39:00 18 /min [facility] Body height 2019-05-27 20:39:00 165.1 cm [facility] Body weight 2019-05-27 20:39:00 98.431 kg [facility] BMI 2019-05-27 20:39:00 36.11 kg/m2 [facility] Systolic blood pressure 2019-05-17 21:39:00 114 mm[Hg] [facility] Diastolic blood pressure 2019-05-17 21:39:00 71 mm[Hg] [facility] Heart rate 2019-05-17 21:39:00 103 /min [facility] Body temperature 2019-05-17 21:39:00 37.11 [place] [facility] Respiratory rate 2019-05-17 21:39:00 18 /min [facility] Body height 2019-05-17 21:39:[address] [facility] Body weight 2019-05-17 21:39:00 100.154 kg [facility] BMI 2019-05-17 21:39:00 36.74 kg/m2 [facility] Systolic blood pressure 2019-05-17 21:39:00 114 mm[Hg] [facility] Diastolic blood pressure 2019-05-17 21:39:00 71 mm[Hg] [facility] Heart rate 2019-05-17 21:39:00 103 /min [facility] Body temperature 2019-05-17 21:39:00 37.11 [place] [facility] [facility] Respiratory rate 2019-05-17 21:39:00 18 /min [facility] Body height 2019-05-17 21:39:00 165.1 cm [facility] Body weight 2019-05-17 21:39:00 100.154 kg [facility] acute [facility] BMI 2019-05-17 21:39:00 36.74 kg/m2 [facility] acute hospital Systolic blood pressure 2019-05-04 18:09:00 135 mm[Hg] [facility] Diastolic blood pressure 2019-05-04 18:09:00 68 mm[Hg] [facility] Heart rate 2019-05-04 18:09:00 96 /min [facility] Body temperature 2019-05-04 18:09:00 36.78 Roselia [facility] Respiratory rate 2019-05-04 18:09:00 22 /min [facility] Oxygen saturation in Arterial blood by Pulse oximetry 2019-05-04 18:09:00 100 /min [facility] Systolic blood pressure 2019-04-29 21:00:00 127 mm[Hg] [facility] Diastolic blood pressure 2019-04-29 21:00:00 68 mm[Hg] [facility] Heart rate 2019-04-29 21:00:00 87 /min [facility] Body temperature 2019-04-29 21:00:00 36.39 Roselia [facility] Respiratory rate 2019-04-29 21:00:00 20 /min [facility] Body height 2019-04-29 21:00:00 165.1 cm [facility] acute [facility] Body weight 2019-04-29 21:00:00 98.431 kg [facility] BMI 2019-04-29 21:00:00 36.11 kg/m2 [facility] acute hospital Body Temperature 2024-03-22 16:57:00 97.90 degrees [facility] Heart Rate 2024-03-22 16:57:00 101.00 /min Step [facility] Respiratory Rate 2024-03-22 16:57:00 20.00 /min [facility] BP Systolic 2024-03-22 16:57:00 120 mm[Hg] [facility] BP Diastolic 2024-03-22 16:57:00 82 mm[Hg] [facility] Weight Measured 2024-03-22 16:57:00 223.00 pounds [facility] Height Measured 2024-03-22 16:57:00 66.00 inches [facility] Procedures Procedure Date / Time Performed Performing Clinician Source POCT TEST 2024-04-19 21:00:00 Evonne Lozoya [facility] CBC WITH DIFF 2023-09-27 00:33:00 [facility] CENTRAL NEURAXIAL BLOCK 2023-09-25 09:00:00 Petey asif Xeniacatherine Mac [facility] URINE DRUG (IMMUNOASSAY) - COMPREHENSIVE DRUG SCREEN 2023-09-25 08:17:00 [facility] CBC WITH DIFF 2023-09-25 08:05:00 [facility] HEPATITIS B SURFACE ANTIGEN 2023-09-25 08:05:00 [facility] HB ABO GROUPING 2023-09-25 08:05:00 [facility] RHO (D) IMMUNE GLOBULIN 2023-09-25 08:05:00 [facility] ADC OR BRIDGER ONLY - RPR 2023-09-25 08:05:00 [facility] HIV 1/2 AG-AB WITH REFLEX 2023-09-25 08:05:00 [facility] URINE DRUG (IMMUNOASSAY) - COMPREHENSIVE DRUG SCREEN 2023-09-18 22:29:00 Cruz [facility] POCT URINALYSIS W/O SPECIFIC GRAVITY 2023-09-18 00:00:00 Cruz [facility] ASSIGNMENT OF BENEFITS 2023-09-16 10:25:05 Docto r Unassigned, [place] [facility] CONSENT/REFUSAL FOR DIAGNOSIS AND TREATMENT 2023-09-16 10:23:26 Doctor Unassigned, [place] [facility] CBC WITH DIFF 2023-09-16 09:30:00 Jordan Wilkinson [facility] COMP. METABOLIC PANEL (14906) 2023-09-16 08:49:00 Ariela Wilkinson [facility] >14 WEEKS US LIMITED 2023-09-11 22:52:27 Kory Cruz [facility] POCT URINALYSIS W/O SPECIFIC GRAVITY 2023-09-11 00:00:00 Kory Cruz [facility] ADC ONLY - FERN TEST 2023-09-08 02:41:00 Mary Avina [facility] POCT URINALYSIS W/O SPECIFIC GRAVITY 2023-08-28 00:00:00 Kory Cruz [facility] SECOND AND THIRD TRIMESTER ULTRASOUND 2023-08-22 19:52:00 Krystal Low [facility] POCT GLUCOSE (AUTOMATED) 2023-08-22 01:43:00 Eloy Chavez [facility] TRANSTHORACIC ECHO (TTE) COMPLETE 2023-08-21 14:54:52 [facility] RHYTHM STRIP 2023-08-21 14:04:01 Reynaldo [facility] THYROID STIMULATING HORMONE 2023-08-21 13:21:00 Mayra Welch [facility] BASIC METABOLIC PANEL (NA, K, CL, CO2, GLUCOSE, BUN, CREATININE, CA) 2023-08-21 13:21:00 Mayra Welch [facility] GLYCOSYLATED HEMOGLOBIN (A1C) 2023-08-21 13:21:00 Tito Pedersen [facility] RUBELLA SCREEN IGG 2023-08-21 13:21:00 [facility] ANTIBODY SCRE[facility] 2023-08-21 13:21:00 Tito Pedersen [facility] HEPATITIS B SURFACE ANTIGEN 2023-08-21 13:21:00 Tito Pedersen [facility] HB ABO GROUPING 2023-08-21 13:21:00 Tito Pedersen [facility] HIV 1/2 AG-AB WITH REFLEX 2023-08-21 13:21:00 Tito Pedersen [facility] SYPHILIS IGG/IGM 2023-08-21 13:21:00 Tito Pedersen [facility] PROTHROMBIN TIME / INR 2023-08-21 01:40:00 Miky Kory Rg am [facility] ACTIVATED PARTIAL THRMPLAS BLANCA 2023-08-21 01:40:00 Kory Cruz [facility] URINE CULTURE 2023-08-21 01:31:00 Kory Cruz [facility] URINALYSIS 2023-08-21 01:16:00 Kory Cruz [facility] ADC CLC OR LCC ONLY - WET PREP 2023-08-21 01:16:00 Miky Kory [facility] GROUP B STREPTOCOCCUS BY PCR 2023-08-21 01:16:00 Miky Kory [facility] CBC WITH DIFF 2023-08-21 01:15:00 Miky Koryhadley Vasquez [facility] URINE DRUG (IMMUNOASSAY) - COMPREHENSIVE DRUG SCREEN 2023-08-21 01:14:00 [facility] 2023-08-21 01:14:00 Miky Kory Pedro [facility] GC & CHLAMYDIA AMPLIFIED ASSAY 2023-08-21 01:13:00 Miky Kory [facility] US BIOPHYSICAL PROFILE 2023-08-20 23:58:11 Miky Kory [facility] US PELVIS > 14 WEEKS 2023-08-20 23:57:55 [facility]+ VW LEFT 2023-08-20 21:31:00 Selwyn Quintero [facility] HOSPITAL ADMISSION 2023-08-20 06:01:00 Doctor Un assigned, [place] [facility] TDAP VACCINE, >11 YRS, IM 2023-08-04 19:02:35 Miky Kory [facility] FLU VACC ([id number]), 6 MO-64 YRS, .5ML, IM, QUAD (FLUCELVAX) 2023-08-04 19:02:35 Miky Kory Vasquez [facility] POCT URINALYSIS W/O SPECIFIC GRAVITY 2023-08-04 00:00:00 Cruz Kory Vasquez [facility] URINE DRUG (IMMUNOASSAY) - COMPREHENSIVE DRUG SCREEN 2023-07-29 09:49:00 Jaja Ariela [facility] URINALYSIS 2023-07-29 09:49:00 Ariela Wilkinson [facility] US PELVIS > 14 WEEKS 2023-06-14 20:12:00 Miky Kory Vasquez [facility] URINALYSIS 2023-06-14 18:55:00 Kory Cruz [facility] ADC ONLY - FERN TEST 2023-06-14 18:55:00 Kory Cruz [facility] ASSIGNMENT OF BENEFITS 2023-06-14 17:37:47 Docto r Unassigned, [place] [facility] CONSENT/REFUSAL FOR DIAGNOSIS AND TREATMENT 2023-06-14 17:36:34 Doctor Unassigned, [place] [facility] SECOND AND THIRD TRIMESTER ULTRASOUND 2023-05-28 21:05:00 Krystal Low [facility] SECOND AND THIRD TRIMESTER ULTRASOUND 2023-05-28 20:25:00 Krystal Low [facility] URINE DRUG (IMMUNOASSAY) - COMPREHENSIVE DRUG SCREEN 2023-04-18 18:48:00 Jaja Ariela [facility] ADC CLC OR LCC ONLY - WET PREP 2023-04-18 18:48:00 Jaja [facility] CONSENT/REFUSAL FOR DIAGNOSIS AND TREATMENT 2023-04-18 16:42:47 Doctor Unassigned, [place] [facility] POCT URINALYSIS 2023-04-02 13:44:00 Krystal Low [facility] EXTERNAL PROVIDER RECORDS 2023-03-21 05:01:00 Doctor Unassigned, [place] [facility] POCT URINALYSIS 2023-03-11 18:00:00 Krystal Low [facility] AUTHORIZATION FOR RELEASE OF PHI 2023-03-11 05:01:00 Doctor Unassigned, [place] [facility] POCT URINALYSIS W/O SPECIFIC GRAVITY 2023-02-11 18:03:00 Krystal Low [facility] POCT TEST 2023-02-11 18:02:00 Bright Low [facility] REPORT OF 2023-02-11 05:01:00 Doctor Kiran harper, [place] [facility] LIPASE 2022-01-17 03:09:00 Yvonne Siddiqi [facility] COMP. METABOLIC PANEL (39273) 2022-01-17 03:09:00 Yvonne Siddiqi [facility] CBC WITH DIFF 2022-01-17 03:09:00 Yvonne Siddiqi [facility] POCT TEST 2022-01-17 02:14:00 Lakhwinder Weiner [facility] URINALYSIS 2022-01-17 02:10:00 Abraham Weiner [facility] NOTICE OF PRIVACY PRACTICES 2022-01-17 01:36:28 Doctor Unassigned, [place] [facility] CONSENT/REFUSAL FOR DIAGNOSIS AND TREATMENT 2022-01-17 01:36:18 Doctor Unassigned, [place] [facility] TDAP (ADACEL) IMMUNIZATION 2019-05-27 20:41:37 Josy Chaudhary [facility] US ABDOMEN LIMITED 2019-05-17 22:45:16 Josy Chaudhary [facility] ASSIGNMENT OF BENEFITS 2019-05-17 22:12:10 Docto r Unassigned, [place] [facility] URINALYSIS 2019-05-04 18:55:00 Kory Cruz [facility] ADC CLC OR LCC ONLY - WET PREP 2019-05-04 18:55:00 Kory Cruz [facility] ADC ONLY - FERN TEST 2019-05-04 18:54:00 Kory Cruz [facility] CONSENT/REFUSAL FOR DIAGNOSIS AND TREATMENT 2019-05-04 17:47:16 Doctor Unassigned, [place] [facility] Encounters Start Date/Time End Date/Time Encounter Type Admission Type Attending [facility] Facility Care Department Encounter ID Source 2023-09-16 06:18:56 Outpatient X [facility] [id number] [facility] 2023-07-29 06:14:02 Outpatient X [facility] [id number] [facility] 2023-04-18 17:24:48 Outpatient X [facility] [id number] [facility] 2022-08-02 05:16:57 Emergency [facility] [id number] [facility] 2021-07-08 14:21:14 Outpatient [facility] [id number] [facility] 2024-05-10 15:30:10 2024-05-10 15:30:[address] [facility] [id number] [facility] 2024-05-10 00:00:00 2024-05-10 00:00:00 Outpatient Visit SFA [id number] [facility] 2024-04-19 13:13:00 2024-04-19 17:01:00 Emergency X DORIAN LOZOYA [facility]RES [facility] [id number] [facility] 2024-04-19 13:13:00 2024-04-19 17:01:00 Emergency Dorian Lozoya [facility] 1.2.840.114 350.1.13.10 4.2.7.2.686 [id number] [facility] 2024-03-22 16:54:59 2024-03-22 16:54:[address] [facility] [id number] [facility] 2024-03-22 00:00:00 2024-03-22 00:00:00 Outpatient Visit SFA [id number] [facility] 2023-09-16 00:00:00 2024-03-09 02:05:43 Mobile Device Encounter Olamide Fraga [facility] 1.2.840.114 350.1.13.10 4.2.7.2.686 [id number] [facility] 2024-01-05 09:02:36 2024-01-05 09:02:[address] [facility] [id number] [facility] 2024-01-02 14:31:28 2024-01-02 14:31:28 Outpatient [facility] [id number] [facility] 2023-11-28 00:00:00 2023-11-28 00:00:00 Patient Secure Msg Doctor Unassigned, [place] [facility] 1.2.840.114 350.1.13.10 4.2.7.2.686 [id number] 134 [id number] [facility] 2023-11-21 00:00:00 2023-11-21 00:00:00 Telephone Kory Cruz [facility] 1.2.840.114 350.1.13.10 4.2.7.2.686 [id number] 134 [id number] [facility] 2023-11-15 00:00:00 2023-11-15 00:00:00 Telephone Kory Cruz [facility] 1.2.840.114 350.1.13.10 4.2.7.2.686 [id number] 134 [id number] [facility] 2023-10-10 10:30:00 2023-10-10 12:02:47 Outpatient R KORY CRUZ [facility] [id number] [facility] 2023-10-10 10:30:00 2023-10-10 12:02:47 Routine Visit Kory Cruz [facility] 1.2.840.114 350.1.13.10 4.2.7.2.686 [id number] 134 [id number] [facility] 2023-10-10 00:00:00 2023-10-10 00:00:00 Patient Secure Msg Doctor Unassigned, [place] [facility] 1.2.840.114 350.1.13.10 4.2.7.2.686 [id number] 134 [id number] [facility] 2023-10-09 00:00:00 2023-10-09 00:00:00 Telephone Kory Cruz [facility] 1.2.840.114 350.1.13.10 4.2.7.2.686 [id number] 134 [id number] [facility] 2023-10-09 00:00:00 2023-10-09 00:00:00 Patient Secure Msg Doctor Unassigned, [facility] 1.2840.114 350.1.13.10 4.2.7.2.686 [id number] 134 [id number] [facility] 2023-09-25 01:05:00 2023-09-27 12:55:00 Inpatient X KORY CRUZ [facility] [id number] [facility] 2023-09-25 01:05:00 2023-09-27 12:55:00 Hospital Encounter Kory Cruz [facility] 1.2840.114 350.1.13.10 4.2.7.2.686 [id number] [facility] 2023-09-25 16:00:00 2023-09-25 16:00:00 Outpatient R KORY CRUZ [facility] [id number] [facility] 2023-09-25 03:00:00 2023-09-25 08:52:00 Anesthesia Event Xenia Angel Michelle [facility] 1.2840.114 350.1.13.10 4.2.7.2.686 [id number] [facility] 2023-09-24 00:00:00 2023-09-24 00:00:00 Telephone Kory Cruz [facility] 1.2.840.114 350.1.13.10 4.2.7.2.686 [id number] 134 [id number] [facility] 2023-09-19 00:10:00 2023-09-19 00:10:00 Outpatient P CANO-EVER S, ARIELA CANO-EVER S, ARIELA [facility] [id number] [facility] 2023-09-18 15:15:00 2023-09-18 16:21:53 Outpatient R KORY CRUZ [facility] [id number] [facility] 2023-09-18 15:15:00 2023-09-18 16:21:53 Routine Visit Kory Cruz [facility] 1..840.114 350.1.13.10 4.2.7.2.686 [id number] 134 [id number] [facility] 2023-09-16 01:28:00 2023-09-16 03:45:00 Outpatient X CANO-EVER S, ARIELA CANO-EVER S, ARIELA [facility] [id number] [facility] 2023-09-16 01:28:00 2023-09-16 03:45:00 Emergency Cano-Ever s, Ariela [facility] 1.2.840.114 350.1.13.10 4.2.7.2.686 [id number] [facility] 2023-09-11 16:15:00 2023-09-11 16:50:18 Outpatient R KORY CRUZ [facility] [id number] [facility] 2023-09-11 16:15:00 2023-09-11 16:50:18 Routine Visit Kory Cruz [facility] 1.2.840.114 350.1.13.10 4.2.7.2.686 [id number] 134 [id number] [facility] 2023-09-11 14:45:00 2023-09-11 15:00:00 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 2, Adc Lab [facility] 1.2.840.114 350.1.13.10 4.2.7.2.686 [id number] [facility] [id number] [facility] 2023-09-11 11:00:00 2023-09-11 11:00:00 [id number] 2023-09-09 16:00:00 2023-09-09 16:00:00 Outpatient R KORY CRUZ [facility] [id number] [facility] 2023-09-08 00:00:00 2023-09-08 00:00:00 Telephone Kory Cruz [facility] 1.2.840.114 350.1.13.10 4.2.7.2.686 [id number] 134 [id number] [facility] 2023-09-07 20:22:00 2023-09-07 22:06:00 Outpatient X MARY AVINA [facility] [id number] [facility] 2023-09-07 20:22:00 2023-09-07 22:06:00 Emergency AdMary bartholomew [facility] 1.2.840.114 350.1.13.10 4.2.7.2.686 [id number] [facility] 2023-09-03 15:18:00 2023-09-03 17:33:00 Outpatient X KORY CRUZ [facility] [id number] [facility] 2023-09-03 15:18:00 2023-09-03 17:33:00 Emergency Kory Cruz [facility] 1.2.840.114 350.1.13.10 4.2.7.2.686 [id number] [facility] 2023-09-02 14:23:00 2023-09-02 15:18:00 Outpatient P MARY AVINA [facility] [id number] [facility] 2023-09-02 14:23:00 2023-09-02 15:18:00 Hospital Encounter Mary Avina [facility] 1.0.114 350.1.13.10 4.2.7.2.686 [id number] [facility] 2023-08-28 10:45:00 2023-08-28 11:28:38 Outpatient R KORY CRUZ [facility] [id number] [facility] 2023-08-28 10:45:00 2023-08-28 11:28:38 Routine Visit Kory Cruz [facility] 1..114 350.1.13.10 4.2.7.2.686 [id number] 134 [id number] [facility] 2023-08-20 15:22:00 2023-08-22 16:30:00 Outpatient X [facility] [id number] [facility] 2023-08-20 15:22:00 2023-08-22 16:30:00 Emergency Nacho Quintero Vien Cam [place], [facility]..114 350.1.13.10 4.2.7.2.686 [id number] [facility] 2023-08-22 13:00:00 2023-08-22 13:54:45 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 2, [facility] Kristal Alfredo Shannon M [facility] 1..114 350.1.13.10 4.2.7.2.686 [id number] [facility] 2023-08-21 20:00:01 2023-08-21 20:00:01 Anesthesia Event Xenia Angel [facility] 1..840.114 350.1.13.10 4.2.7.2.686 [id number] [facility] 2023-08-18 14:15:00 2023-08-18 14:15:00 Outpatient R KORY CRUZ [facility] [id number] [facility] 2023-08-08 13:45:00 2023-08-08 13:45:00 Outpatient R [facility] [id number] [facility] 2023-08-06 00:00:00 2023-08-06 00:00:00 Patient Secure Msg Doctor Unassigned, [place] [facility] 1.840.114 350.1.13.10 4.2.7.2.686 [id number] [facility] 2023-08-04 10:00:00 2023-08-04 11:00:40 Outpatient R KORY CRUZ [facility] [id number] [facility] 2023-08-04 10:00:00 2023-08-04 11:00:40 Initial Visit Kory Cruz [facility] 1.840.114 350.1.13.10 4.2.7.2.686 [id number] 134 [id number] [facility] 2023-07-29 03:10:00 2023-07-29 06:05:00 Outpatient X CANO-EVER S, ARIELA CANO-EVER S, ARIELA [facility] [id number] [facility] 2023-07-29 03:10:00 2023-07-29 06:05:00 Emergency Cano-Ever s, Ariela [facility] 1.840.114 350.1.13.10 4.2.7.2.686 [id number] [facility] 2023-07-27 00:00:00 2023-07-27 00:00:00 Nurse Triage NurseSuyapa [facility] 1.2.840.114 350.1.13.10 4.2.7.2.686 [id number] [facility] 2023-06-21 00:00:00 2023-06-21 00:00:00 Krystal Ortega [facility] 1.2.840.114 350.1.13.10 4.2.7.2.686 [id number] [facility] 2023-06-14 12:51:00 2023-06-14 15:30:00 Outpatient X KORY CRUZ [facility] [id number] [facility] 2023-06-14 12:51:00 2023-06-14 15:30:00 Emergency Kory Cruz [facility] 1.2.840.114 350.1.13.10 4.2.7.2.686 [id number] [facility] 2023-06-14 00:00:00 2023-06-14 00:00:00 Nurse Triage Heidi Christianson [facility] 1.2.840.114 350.1.13.10 4.2.7.2.686 [id number] [facility] 2023-06-14 00:00:00 2023-06-14 00:00:00 Orders Only Doctor Unassigned, [place] [facility] 1.2.840.114 350.1.13.10 4.2.7.2.686 [id number] [facility] 2023-06-03 00:00:00 2023-06-03 00:00:00 Telephone Huy Mendoza [facility]ILD [facility] 1.2.840.114 350.1.13.10 4.2.7.2.686 [id number] [facility] 2023-06-02 15:30:00 2023-06-02 15:30:00 Outpatient R HUY MENDOZA [facility] [id number] [facility] 2023-05-30 00:00:00 2023-05-30 00:00:00 Case Management Krystal Low [facility] 1.2.840.114 350.1.13.10 4.2.7.2.686 [id number] [facility] 2023-05-28 14:00:00 2023-05-28 15:19:04 Outpatient P SHELLEY SANCHEZ [facility] [id number] [facility] 2023-05-28 14:00:00 2023-05-28 15:19:04 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 Ultrasound, [facility] Shelley Sanchez [facility] 1.2.840.114 350.1.13.10 4.2.7.2.686 [id number] [facility] 2023-05-21 00:00:00 2023-05-21 00:00:00 Refill Krystal Low [facility] CHILD [facility] 1.2.840.114 350.1.13.10 4.2.7.2.686 [id number] [facility] 2023-05-21 00:00:00 2023-05-21 00:00:00 Telephone Krystal Low [facility] 1.2.840.114 350.1.13.10 4.2.7.2.686 [id number] [facility] 2023-05-20 15:30:00 2023-05-20 15:30:00 Outpatient R HUY MENDOZA [facility] [id number] [facility] 2023-05-16 09:45:00 2023-05-16 09:45:00 Outpatient R KRYSTAL LOW [facility] [id number] [facility] 2023-05-03 17:42:00 2023-05-03 18:57:00 Outpatient X CANO-EVER S, ARIELA CANO-EVER S, ARIELA [facility] [id number] [facility] 2023-05-03 17:42:00 2023-05-03 18:57:00 Emergency Cano-Ever s, Ariela [facility] 1.2840.114 350.1.13.10 4.2.7.2.686 [id number] [facility] 2023-04-30 10:45:00 2023-04-30 10:45:00 Outpatient R KRYSTAL LOW [facility] [id number] [facility] 2023-04-18 12:18:00 2023-04-18 16:05:00 Outpatient X CANO-EVER S, ARIELA CANO-EVER S, ARIELA [facility] [id number] [facility] 2023-04-18 12:18:00 2023-04-18 16:05:00 Emergency Cano-Ever s, Ariela [facility] 1.2840.114 350.1.13.10 4.2.7.2.686 [id number] [facility] 2023-04-17 00:00:00 2023-04-17 00:00:00 Krystal Coffey [facility] 1.2.840.114 350.1.13.10 4.2.7.2.686 [id number] [facility] 2023-04-17 00:00:00 2023-04-17 00:00:00 Patient Secure Msg Krystal Low [facility] 1..840.114 350.1.13.10 4.2.7.2.686 [id number] [facility] 2023-04-08 12:45:00 2023-04-08 12:45:00 Outpatient R KRYSTAL LOW [facility] [id number] [facility] 2023-04-07 00:00:00 2023-04-07 00:00:00 Case Management Krystal Low [facility] 1..840.114 350.1.13.10 4.2.7.2.686 [id number] [facility] 2023-04-03 10:30:00 2023-04-03 10:30:00 Outpatient R [facility]STAL [facility]OW [facility] [id number] [facility] 2023-04-03 00:00:00 2023-04-03 00:00:00 Refill Krystal Low [facility] 1..840.114 350.1.13.10 4.2.7.2.686 [id number] 107 [id number] [facility] 2023-04-02 08:45:00 2023-04-02 09:15:48 Outpatient R KRYSTAL LOW [facility] [id number] [facility] 2023-04-02 08:45:00 2023-04-02 09:15:48 Routine Visit Krystal Low [facility] 1..840.114 350.1.13.10 4.2.7.2.686 [id number] [facility] 2023-03-21 00:00:00 2023-03-21 00:00:00 Case Management Krystal Low [facility] 1.2840.114 350.1.13.10 4.2.7.2.686 [id number] [facility] 2023-03-21 00:00:00 2023-03-21 00:00:00 Orders Only Doctor Unassigned, [place] [facility], [facility] 1.2840.114 350.1.13.10 4.2.7.2.686 [id number] [facility] 2023-03-19 00:00:00 2023-03-19 00:00:00 Telephone Krystal Low [facility] 1.840.114 350.1.13.10 4.2.7.2.686 [id number] [facility] 2023-03-11 12:45:00 2023-03-11 13:26:33 Outpatient R KRYSTAL LOW [facility] [id number] [facility] 2023-03-11 12:45:00 2023-03-11 13:26:33 Routine Visit Krystal Low [facility] 1.2840.114 350.1.13.10 4.2.7.2.686 [id number] [facility] 2023-03-11 00:00:00 2023-03-11 00:00:00 Orders Only Doctor Unassigned, [place] [facility] 1.2840.114 350.1.13.10 4.2.7.2.686 [id number] [facility] 2023-02-18 00:00:00 2023-02-18 00:00:00 [facility] 1.2.840.114 350.1.13.10 4.2.7.2.686 [id number] [facility] 2023-02-14 00:00:00 2023-02-14 00:00:00 Case Management Krystal Low [facility] F[facility]ION [facility] 1.2.840.114 350.1.13.10 4.2.7.2.686 [id number] [facility] 2023-02-14 00:00:00 2023-02-14 00:00:00 Telephone Krystal Low [facility] F[facility] 1.2.840.114 350.1.13.10 4.2.7.2.686 [id number] [facility] 2023-02-11 13:00:00 2023-02-11 14:23:32 Initial Visit Krystal Low [facility] 1.2.840.114 350.1.13.10 4.2.7.2.686 [id number] [facility] 2023-02-11 12:30:00 2023-02-11 13:21:27 Outpatient R KENNEDYBRIGHT GEORGENDA [facility] [id number] [facility] 2023-02-11 00:00:00 2023-02-11 00:00:00 Orders Only Doctor Unassigned, [place] [facility] 1.2.840.114 350.1.13.10 4.2.7.2.686 [id number] [facility] 2023-02-10 08:30:00 2023-02-10 08:30:00 Outpatient R HUY MENDOZA [facility] [id number] [facility] 2022-08-02 04:26:00 2022-08-02 11:34:00 [facility] 2022-01-16 21:05:00 2022-01-17 00:11:00 Emergency X YVONNE SIDDIQI [facility] ERT [id number] [facility] 2022-01-16 21:05:00 2022-01-17 00:11:00 Emergency Yvonne Siddiqi [facility] 1.2840.114 350.1.13.10 4.2.7.2.686 [id number] [facility] 2021-07-25 00:00:00 2021-07-25 00:00:00 Patient Secure Msg Doctor Unassigned, [place] [facility] 1.2840.114 350.1.13.10 4.2.7.2.686 [id number] [facility] 2021-04-19 13:15:00 2021-04-19 13:15:00 Outpatient R HUY MENDOZA [facility] [id number] [facility] 2021-02-06 00:00:00 2021-02-06 00:00:00 Case Management Jennifer Belcher 1.2840.114 350.1.13.10 4.2.7.2.686 [id number] [facility] 2021-02-06 00:00:00 2021-02-06 00:00:00 Case Management Jennifer Belcher 1.2840.114 350.1.13.10 4.2.7.2.686 [id number] 2020-12-12 00:00:00 2020-12-12 00:00:00 Patient Outreach Broderick Melton [facility] 1.2840.114 350.1.13.10 4.2.7.2.686 [id number] [facility] 2020-12-12 00:00:00 2020-12-12 00:00:00 Patient Outreach GeronimoBroderick [facility] 1.2.840.114 350.1.13.10 4.2.7.2.686 [id number] 2020-02-28 15:00:00 2020-02-28 15:00:00 Outpatient [facility] [id number] [facility] 2019-12-18 17:30:00 2019-12-18 17:30:00 Outpatient Debra GREEN KRISSY [facility] [id number] [facility] 2019-11-18 14:30:00 2019-11-18 14:30:00 Outpatient R NEENA [facility] [id number] [facility] 2019-05-27 14:41:30 2019-05-27 15:54:53 Routine Visit Neena [facility] 1.2.840.114 350.1.13.10 4.2.7.2.686 [id number] [facility] 2019-05-27 14:41:30 2019-05-27 15:54:53 Routine Visit Josy Chaudhary [facility] 1.2.840.114 350.1.13.10 4.2.7.2.686 [id number] 2019-05-17 17:15:00 2019-05-17 23:59:00 Hospital Encounter Neena [facility] 1.2.840.114 350.1.13.10 4.2.7.2.686 [id number] [facility] 2019-05-17 17:21:30 2019-05-17 17:36:30 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 1, Adc Lab Kory Cruz [facility] 1.2.840.114 350.1.13.10 4.2.7.2.686 [id number] [facility] 2019-05-17 15:55:01 2019-05-17 16:56:25 [facility] 1.2.840.114 350.1.13.10 4.2.7.2.686 [id number] [facility] 2019-05-17 15:55:01 2019-05-17 16:56:25 Office Visit Josy Chaudhary [facility] 1.2.840.114 350.1.13.10 4.2.7.2.686 [id number] 2019-05-17 00:00:00 2019-05-17 00:00:00 Orders Only Doctor Unassigned, [place] [facility] 1.2.840.114 350.1.13.10 4.2.7.2.686 [id number] [facility] 2019-05-05 00:00:00 2019-05-05 00:00:00 Telephone Josy Chaudhary [facility] 1.2.840.114 350.1.13.10 4.2.7.2.686 [id number] [facility] 2019-05-04 15:07:01 2019-05-04 15:22:01 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 1, Adc Lab Kory Cruz [facility] 1.2.840.114 350.1.13.10 4.2.7.2.686 [id number] [facility] 2019-05-04 12:48:00 2019-05-04 14:57:00 Hospital Encounter Kory Cruz [facility] 1.2.840.114 350.1.13.10 4.2.7.2.686 [id number] [facility] 2019-05-04 00:00:00 2019-05-04 00:00:00 Telephone Josy Chaudhary [facility] 1.2.840.114 350.1.13.10 4.2.7.2.686 [id number] [facility] 2019-05-04 00:00:00 2019-05-04 00:00:00 Orders Only Doctor Unassigned, [place] [facility] 1.2.840.114 350.1.13.10 4.2.7.2.686 [id number] [facility] 2019-04-30 00:00:00 2019-04-30 00:00:00 Case Management Josy Chaudhary [facility] 1.2.840.114 350.1.13.10 4.2.7.2.686 [id number] [facility] 2019-04-29 15:40:17 2019-04-29 16:18:51 Routine Visit Kory Cruz [facility] 1.2.840.114 350.1.13.10 4.2.7.2.686 [id number] [facility] Results Test Description Test Time Test Comments Results Result Co mments Source [facility] OR BRIDGERMEGAN BRYSON - [id number] 09:53:48* Test Item Value Reference Range Interpretation Comme nts RPR (Qualitative) (test code = 86641-9) Nonreactive Nonreactive Lab Interpretation (test cod e = 95303-5) Normal [facility] Center[facility] (D) IMMUNE [id number] 16:36:33* Test Item Value Reference Range Interpretation Comme nts RHIG CANDIDATE? (test code = 5188) No- see comment Patient is not a candidate for RhIg- Patient is Rh Positive.Performed at [facility] Laboratory Services - ADC Blood [address] [place] [phone] Free: [phone] No. [id number] [facility] CenterHepatitis B Surface [id number] 12:56:12 * Test Item Value Reference Range Interpretation Comme nts HBsAg Semi-Quantitative (fredy t code = 5195-3) 0.10 Negative [facility] CenterHIV [facility]/2 Ag-Ab with [id number] 09:08:51* Test Item Value Reference Range Interpretation Comme nts HIV Semi-quantitative (test code = 76385-6) 0.18 Negative TIERRA (test code = TIERRA) Non-reactive for HIV-1 antigen and HIV-1/HIV-2 antibodies. ?No laboratory evidence of HIV infection. ?Repeat in 2-4 weeks if acute HIV infection is suspected. [facility] Center[facility] Neuraxial Whrga0119-12-99 09:00:00 Xenia Angel MD ? ? 09/25/2023 [...] Neuraxial: Epidural ?Epidural Description: 1st attempt ? SterilityPrep cap, drape, gloves, hand hygiene and mask ? ?Sedation Level no sedation ?Patient Position: sitting ?Prep: Betadine and patient draped ? ?Monitoring: heart rate, continuous pulse ox, heart rate / toco and NIBP ?Location: lumbar (1-5) ?Lumbar: L2-L3 ?Approach: midline ? ?Technique: SUJEY airand catheter ?Guidance with: landmark technique}Epidural/Spinal [place] and/or Catheter: ?Epidural/Spinal Kit: BBraun ?Needle Type: Tuohy ?Needle Gauge: 17 G ?Needle Length: 3.5 in (8.89 cm) ?Needle Insertion Depth: 7 ?Catheter Type: multiport ? ?Catheter Size: 19 G ? ?Catheter at Skin Depth: 12 ?Number of Attempts: 2 ?Test Dose: lidocaine 1.5% with epinephrine 1-to-200,000 and negative ? ?Dose: 3 cc ? ?Catheter Securement Method: Tegaderm, surgical tape [...] recheck prior to proceeding. Second attempt after 50mcg fentanyl IV. SIngle pass, catheter threaded easily, negative aspiration, negative test dose. Secured with mastisol then tegaderm and tape. No apparent complications.[facility] CenterType and Screen - ONCE [id number] 08:11:00* Test Item Value Reference Range Interpretation Comme nts ABO & RH (test code = 20) O Positive IAT (test code = 1185) Negative [facility] CenterPOCT Urinalysis w/o Specific [id number] 22:26:00* Test Item Value Reference Range Interpretation [...] = 3257) n/a Negative - Negati ve [facility] CenterComp. Metabolic Panel (41985)2023-09-16 10:09:50* Test Item Value Reference Range Interpretation Comme nts NA (test code = 0156713950) 135 mmol/L 135-145 K (test code = 1534824473) 3.6 mmol/L 3.5-5.0 CL (test code = 6796451957) 105 mmol/L 98-108 CO2 TOTAL (test code = 5413977803) 25 mmol/L 23-31 AGAP (test code = 9909617031) 5 2-16 BUN (test code = 5217503621) 4 mg/dL 7-23 L GLUCOSE (test code = 3074304501) 88 mg/dL 70-110 CREATININE (test code = 9841877737) 0.49 mg/dL 0.50-1.04 L TOTAL BILI (test code = 1728538008) 1.1 mg/dL 0.1-1.1 CALCIUM (test code = 5836798187) 8.6 mg/dL 8.6-10.6 T PROTEIN (test code = 8332050955) 6.7 g/dL 6.3-8.2 ALBUMIN (test code = 7288595490) 3.3 g/dL 3.5-5.0 L ALK PHOS (test code = 7659372773) 131 U/L 34-122 H ALTv (test code = 1742-6) 17 U/L 5-35 AST(SGOT) (test code = 8308624181) 25 U/L 13-40 eGFR (test code = 50570-2) 135.2 mL/min/1.73m2 CKD-EPI eGFR (2020). Assuming creatinine has been stable day-to-day for at least three months, the eGFR indicates Category G1 (>= 90 mL/min/1.73 m2) Lab Interpretation (test code = 68460-1) Abnormal [facility] with Qpwc4719-07-38 09:36:47* Test Item Value Reference Range Interpretation Comme nts WBC (test code = 6690-2) 6.44 See_Comment [Automated [employer]a ge] The system which generated this result [...] g/dL 31.6-35.1 L RDW-SD (test code = 65706-9) 47.0 fL 39.0-49.9 RDW-CV (test code = 788-0) 17.6 % 12.0-15.5 H PLT (test code = 777-3) 184 See_Comment [Automated messa ge] The system which generated this result transmitted reference range: 166 - 358 10*3/?L. The reference range was not used to interpret this result as normal/abnormal. MPV (test code = 88930-4) 10.1 fL 9.5-12.9 NRBC/100 WBC (test code = 7855285897) 0.0 See_Comment [Automated me ssage] The system which generated this result transmitted reference range: 0.0 - 10.0 /100 WBCs. The reference range was not used to interpret this result as normal/abnormal. NRBC x10^3 (test code = 5641977650) See_Comment [Automated messa ge] The system which generated this result transmitted reference range: 10*3/?L. The reference range was not used to interpret this result as normal/abnormal. GRAN MAT (NEUT) % (test code = 770-8) 66.7 % IMM GRAN % (test code = 1096590709) 0.80 % LYMPH % (test code = 736-9) 24.1 % MONO % (test code = 5905-5) 6.5 % EOS % (test code = 713-8) 1.6 % BASO % (test code = 706-2) 0.3 % GRAN MAT x10^3(ANC) (test code = 0380611352) 4.30 10*3/uL 1.88-7.09 IMM GRAN x10^3 (test code = 7620494734) 0.05 10*3/uL 0.00-0.06 LYMPH x10^3 (test code = 731-0) 1.55 10*3/uL 1.32-3.29 MONO x10^3 (test code = 742-7) 0.42 10*3/uL 0.33-0.92 EOS x10^3 (test code = 711-2) 0.10 10*3/uL 0.03-0.39 BASO x10^3 (test code = 704-7) 0.01-0.07 Lab Interpretation (test code = 39349-9) Abnormal [facility] CenterPOOK Urinalysis w/o Specific Ipqwrna1927-10-80 22:18:00* Test Item Value Reference Range Interpretation [...] ve [facility] URINALYSIS W/O SPECIFIC [id number] 17:06:00* Test Item Value Reference Range Interpretation [...] = 3257) n/a Negative - Negati ve [facility] CenterVZV ANTIBODY ESKPAI7649-30-92 15:22:41* Test Item Value Reference Range Interpretation Comme nts VZV IgG antibody (test code = 21978-4) Negative Negative TIERRA (test code = TIERRA) Positive - Indicat es the patient was exposed to VZV through infection or vaccination.Negative - Indicates the patient could be susceptible to VZV infection.Equivocal - A second specimen should be sent for testing. [facility] CenterRUBELLA SCREEN [id number] 15:22:41* Test Item Value Reference Range Interpretation [facility] IgG (test code = 2870341886) Positive Negative TIERRA (test code = TIERRA) Positive - Indicat es the patient was exposed to Rubella through infection or vaccination.Negative - Indicates the patient could be susceptible to Rubella infection.Equivocal - A second specimen should be sent. [facility] CenterSYPHILIS IGG/[id number] 15:21:40* Test Item Value Reference Range Interpretation [facility]ph[facility] IgG/IgM (test code = 23018-1) Non-reactive Non-reactive TIERRA (test code = TIERRA) Non-reactive - No serologic evidence of T. pallidum infection. Cannot exclude incubating or early syphilis. Submit a second specimen in 2-4 weeks if syphilis is clinically suspected. Equivocal - Further testing to follow. Reactive - Further testing to follow. Lab Interpretation (test code = 08283-8) Normal [facility] CenterPOCT GLUCOSE (AUTOMATED)2023-08-22 01:48:28* Test Item Value Reference Range Interpretation Comme [facility] POCT GLU (test code = 5200501430) 133 mg/dL 70-110 H Lab Interpretation (test cod e = 45312-4) Abnormal [facility] CenterTransthoracic echo (TTE)2023-08-21 20:30:27* Test Item Value Reference Range Interpretation Comme [facility] Height (test code = 5504379364) 65 in Weight (test code = 8078067967) 219 lbs Systolic BP (test code = 9090686817) 106 mmHg Diastolic BP (test code = 8962518602) 60 mmHg Heart Rate (test code = 2562972639) 90 bpm LVOT stroke volume (test code = 3451547947) 55.30 cm3 EF(Teich) (test code = 2786980791) 74.90 % LVIDD (test code = 2369621264) 5.20 cm LVIDS (test code = 7216402690) 2.90 cm Left Ventricular End Systolic Volume by Teichholz Method (test code = 4179140) 32.2 mL Left Ventricular End Diastolic Volume by Teichholz Method (test code = 5809727) 128.3 mL IVS (test code = 4135356870) 0.66 cm LVPWD (test code = 0162138342) 1.10 cm LVOT diameter (test code = 7228438325) 1.86 cm LVOT area (test code = 1874945935) 2.70 cm2 FS (test code = 6547402313) 44 % MV Peak E Lakshmi (test code = 6311880924) 97.3 cm/s MV Peak A Lakshmi (test code = 7191093932) 80.6 cm/s E/A ratio (test code = 9229262537) 1.21 ratio E wave decelartion time (test code = 1997831940) 0.19 s MV E/e' septal (test code = 8678732286) 11.6 cm/s LA Volume Index (BP) (test code = 6652528654) 37.1 mL/m2 LA volume (BP) (test code = 7724556174) 76.3 mL LVOT peak lakshmi (test code = 4159495266) 108.4 cm/s LVOT mn grad (test code = 7964616366) 2.5 mmHg BSA (test code = 2774279564) 2.06 m2 LA size (test code = 6522477373) 4.0 cm LAV(MOD-sp2) (test code = 1572318281) 54.20 mL LAV(MOD-sp4) (test code = 2176284299) 82.70 mL Tapse (test code = 4750273286) 2.35 cm AV LVOT peak gradient (test code = 0240773976) 4.7 mmHg LVOT peak VTI (test code = 1432873217) 20.3 cm LV V1 mean (test code = 4015776346) 74.60 cm/s MV Prop V (test code = 3999348620) 70.10 cm/s Ao root diam (test code = 8971325463) 3.60 cm Aortic root (test code = 2709349792) 3.6 cm Ao root annulus (test code = 2421790389) 3.6 cm PW (test code = 9256236838) 1.10 cm 0.6-1.1 EF - 2D (test code = 60078774) 74.90 % Interventricular Septum Diastolic Thickness by 2D (test code = 5069182) 0.66 cm Aortic valve mean velocity (test code = 6910477697) 123.5 cm/s Ao peak lakshmi (test code = 8937316329) 177.8 cm/s Ao VTI (test code = 1272169334) 34.6 cm AV area by cont VTI (test code = 3977191464) 1.6 cm2 AV area peak lakshmi (test code = 3060480336) 1.7 cm2 Ao max PG (test code = 7011006504) 12.60 mm[Hg] AV peak gradient (test code = 6283959296) 12.6 mmHg AV valve area (test code = 0868467415) 1.60 cm2 AV mean gradient (test code = 4016243348) 6.5 mmHg MV mean gradient (test code = 6565537702) 1.45 mmHg MV peak gradient (test code = 0668269715) 3.0 mmHg MV pk lakshmi (test code = 6445357668) 86.1 cm/s MV valve area by continuity eq (test code = 4651500246) 2.70 cm2 MV VTI (test code = 5241681658) 20.5 cm MV V2 mean (test code = 1723965424) 56.30 cm/s Radiology Study observation (narrative) (test code = 05295-2) TIERRA (test code = TIERRA) ?Left?Ventricle: Left ventricle size is normal. Increased wall thickness. There is concentric remodeling. Normal wall motion. Hyperdynamic systolic function with a visually estimated EF of 65 - 70%. Normal diastolic function. ?Right?Ventricle: Right ventricle size is normal. Normal systolic function. TAPSE is 2.35 cm. Roscoe Cuellar, [facility]Oardiovascular Medicine FellowTri County Area Hospital VentricleLeft ventricle size is normal. Increased [...] apical, parasternal and subcostal views were obtained. [facility] CenterTHYROID STIMULATING [id number] 17:48:00 * Test Item Value Reference Range Interpretation Comme nts TSH (test code = 0032974367) 0.51 See_Comment [Automated [employer]a ge] The system which generated this result transmitted reference range: 0.45 - 4.70 mIU/L. The reference range was not used to interpret this result as normal/abnormal. Lab Interpretation (test code = 28073-5) Normal [facility] METABOLIC PANEL (NA, K, CL, CO2, GLUCOSE, BUN, CREATININE, CA)2023-08-21 17:14:33* Test Item Value Reference Range Interpretation Comme nts NA (test code = 5560782585) 132 mmol/L 135-145 L K (test code = 5479430238) 4.0 mmol/L 3.5-5.0 CL (test code = 9035477520) 106 mmol/L 98-108 CO2 TOTAL (test code = 2547502359) 17 mmol/L 23-31 L AGAP (test code = 7928953225) 9 2-16 BUN (test code = 1933876166) 5 mg/dL 7-23 L GLUCOSE (test code = 5177099177) 75 mg/dL 70-110 CREATININE (test code = 7735556971) 0.44 mg/dL 0.50-1.04 L CALCIUM (test code = 5673158484) 8.4 mg/dL 8.6-10.6 L eGFR (test code = 39326-3) 138.7 mL/min/1.73m2 CKD-EPI eGFR (2020). Assuming creatinine has been stable day-to-day for at least three months, the eGFR indicates Category G1 (>= 90 mL/min/1.73 m2) Lab Interpretation (test code = 69829-0) Abnormal [facility] CenterHIV 1/2 AG-AB WITH [id number] 15:05:53* Test Item Value Reference Range Interpretation Comme nts HIV Semi-quantitative (test code = 43933-6) 0.11 Negative TIERRA (test code = TIERRA) Non-reactive for HIV-1 antigen and HIV-1/HIV-2 antibodies. ?No laboratory evidence of HIV infection. ?Repeat in 2-4 weeks if acute HIV infection is suspected. [facility] CenterHEPATITIS B SURFACE [id number] 15:01:33 * Test Item Value Reference Range Interpretation Comme nts HBsAg Semi-Quantitative (fredy t code = 5195-3) 0.07 Negative [facility] CenterGLYCOSYLATED HEMOGLOBIN (A1C)2023-08-21 14:26:03* Test Item Value Reference Range Interpretation Comme [facility] HGB A1C (test code = 4548-4) 5.2 % 4.0-5.7 TIERRA (test code = TIERRA) Reference RangesNormal: <5.7%Prediabetes: 5.7 - 6.4%Diabetes: > 6.5% Lab Interpretation (test code = 28649-9) Normal [facility] CenterType and Screen - ONCE Devxays3616-08-65 13:34:00* Test Item Value Reference Range Interpretation Comme nts ABO & RH (test code = 20) O POSITIVE IAT (test code = 1185) Negative [facility] CenterProthrombin Time / [id number] 02:05:48* Test Item Value Reference Range Interpretation Comme [facility] PROTIME PATIENT (test code = 5964-2) 13.0 See_Comment [Automated [employer]a CatchFree] The system which generated this result transmitted reference range: 12.0 - 14.7 Seconds. The reference range was not used to interpret this result as normal/abnormal. INR (test code = 6301-6) 1.0 Normal INR <1.1; Warfarin Therapeutic range 2.0 to 3.0 or 2.5 to 3.5, depending upon the indications. Lab Interpretation (test code = 30123-8) Normal [facility] CenteraPTT2023-11-30 02:05:48* Test Item Value Reference Range Interpretation Comme nts APTT Patient (test code = 3173-2) 27 See_Comment [Automated message] The system which generated this result transmitted reference range: 23 - 38 Seconds. The reference range was not used to interpret this result as normal/abnormal. TIERRA (test code = TIERRA) The [facility] patient population mean normal value for aPTT is 30 seconds. Lab Interpretation (test code = 86522-0) Normal [facility] CenterCBC WITH [id number] 01:28:43* Test Item Value Reference Range Interpretation Comme [facility] WBC (test code = 6690-2) 9.07 See_Comment [...] g/dL 31.6-35.1 L RDW-SD (test code = 97347-8) 45.6 fL 39.0-49.9 RDW-CV (test code = 788-0) 17.0 % 12.0-15.5 H PLT (test code = 777-3) 228 See_Comment [Automated messa ge] The system which generated this result transmitted reference range: 166 - 358 10*3/?L. The reference range was not used to interpret this result as normal/abnormal. MPV (test code = 58040-4) 10.4 fL 9.5-12.9 NRBC/100 WBC (test code = 3932149212) 0.2 See_Comment [Automated me ssage] The system which generated this result transmitted reference range: 0.0 - 10.0 /100 WBCs. The reference range was not used to interpret this result as normal/abnormal. NRBC x10^3 (test code = 0612798472) 0.02 See_Comment [Automated messa ge] The system which generated this result transmitted reference range: 10*3/?L. The reference range was not used to interpret this result as normal/abnormal. GRAN MAT (NEUT) % (test code = 770-8) 75.4 % IMM GRAN % (test code = 1262592248) 0.90 % LYMPH % (test code = 736-9) 17.6 % MONO % (test code = 5905-5) 4.9 % EOS % (test code = 713-8) 0.9 % BASO % (test code = 706-2) 0.3 % GRAN MAT x10^3(ANC) (test code = 3082934458) 6.84 10*3/uL 1.88-7.09 IMM GRAN x10^3 (test code = 6300205022) 0.08 10*3/uL 0.00-0.06 H LYMPH x10^3 (test code = 731-0) 1.60 10*3/uL 1.32-3.29 MONO x10^3 (test code = 742-7) 0.44 10*3/uL 0.33-0.92 EOS x10^3 (test code = 711-2) 0.08 10*3/uL 0.03-0.39 BASO x10^3 (test code = 704-7) 0.03 10*3/uL 0.01-0.07 Lab Interpretation (test code = 97150-7) [facility] [id number] 01:24:00* Test Item Value Reference Range Interpretation Comme nts ABO & RH (test code = 20) O Positive IAT (test code = 1185) Negative [facility] [id number] 16:23:00* Test Item Value Reference Range Interpretation [...] ve [facility] URINALYSIS W SPECIFIC [id number] 13:44:00* Test Item Value Reference Range Interpretation [...] 3267) [facility] URINALYSIS W SPECIFIC [id number] 18:00:00* Test Item Value Reference Range Interpretation [...] 3267) [facility] URINALYSIS W/O SPECIFIC [id number] 18:03:00* Test Item Value Reference Range Interpretation [...] = 3257) Trace Negative - Negati ve [facility] [id number] 18:02:00* Test Item Value Reference Range Interpretation Comme nts POCT PREG (test code = 1605) Positive On board controls acceptable with C Line (test code = 3574) Yes POCT PREG LOT # (test code = 3575) POCT PREG TEST DATE ( test code = 3576) [facility]. METABOLIC PANEL (42332)2022-01-17 03:31:19* Test Item Value Reference Range Interpretation Comme nts NA (test code = 6197428916) 139 mmol/L 135-145 K (test code = 7150137751) 4.2 mmol/L 3.5-5.0 CL (test code = 0286381802) 105 mmol/L 98-108 CO2 TOTAL (test code = 8011467230) 23 mmol/L 23-31 AGAP (test code = 4531101290) 2-16 BUN (test code = 1803091546) 9 mg/dL 7-23 GLUCOSE (test code = 1047045575) 94 mg/dL 70-110 CREATININE (test code = 4306018837) 0.61 mg/dL 0.50-1.04 TOTAL BILI (test code = 8183818503) 0.9 mg/dL 0.1-1.1 CALCIUM (test code = 7395704554) 9.4 mg/dL 8.6-10.6 T PROTEIN (test code = 8952998249) 8.3 g/dL 6.3-8.2 H ALBUMIN (test code = 6546274989) 4.7 g/dL 3.5-5.0 ALK PHOS (test code = 0170900881) 87 U/L 34-122 ALTv (test code = 1742-6) 11 U/L 5-35 AST(SGOT) (test code = 4434402953) 19 U/L 13-40 eGFR (test code = 0096394750) mL/min/1.73m2 TIERRA (test code = TIERRA) Association [...] imaging tests). Lab Interpretation (test code = 44137-5) [facility] Test Item Value Reference Range Interpretation Comme nts LIPASE (test code = 6722375997) 68 U/L 0-220 Lab Interpretation (test cod e = 69559-6) Normal [facility] WITH [id number] 03:28:58* Test Item Value Reference Range Interpretation [...] 31.9 g/dL 31.6-35.1 RDW-SD (test code = 48881-1) 43.8 fL 39.0-49.9 RDW-CV (test code = 788-0) 15.2 % 12.0-15.5 PLT (test code = 777-3) See_Comment [Automated messa ge] The system which generated this result transmitted reference range: 166 - 358 10*3/?L. The reference range was not used to interpret this result as normal/abnormal. MPV (test code = 31127-5) 11.3 fL 9.5-12.9 NRBC/100 WBC (test code = 3412598483) See_Comment [Automated Kids Calendar ssage] The system which generated this result transmitted reference range: 0.0 - 10.0 /100 WBCs. The reference range was not used to interpret this result as normal/abnormal. NRBC x10^3 (test code = 5730646579) <0.01 See_Comment [Automated messa ge] The system which generated this result transmitted reference range: 10*3/?L. The reference range was not used to interpret this result as normal/abnormal. GRAN MAT (NEUT) % (test code = 770-8) 71.7 % IMM GRAN % (test code = 8315002020) 0.20 % LYMPH % (test code = 736-9) 22.5 % MONO % (test code = 5905-5) 4.2 % EOS % (test code = 713-8) 0.8 % BASO % (test code = 706-2) 0.6 % GRAN MAT x10^3(ANC) (test code = 5159937895) 6.26 10*3/uL 1.88-7.09 IMM GRAN x10^3 (test code = 1937351890) <0.03 0.00-0.06 LYMPH x10^3 (test code = 731-0) 1.96 10*3/uL 1.32-3.29 MONO x10^3 (test code = 742-7) 0.37 10*3/uL 0.33-0.92 EOS x10^3 (test code = 711-2) 0.07 10*3/uL 0.03-0.39 BASO x10^3 (test code = 704-7) 0.05 10*3/uL 0.01-0.07 Lab Interpretation (test code = 91941-8) [facility] [id number] 02:14:00* Test Item Value Reference Range Interpretation Comme nts POCT PREG (test code = 1605) negative On board controls acceptable with C Line (test code = 3574) present POCT PREG LOT # (test code = 3575) [id number] POCT PREG TEST DATE ( test code = 3576) 06/21/2023 Lab Interpretation (test cod e = 83575-8) Normal [facility] ABDOMEN [id number] 23:14:22 Cholelithiasis with no evidence of acute [...] portions of the right kidney are unremarkable. [facility] Results Inft User - 05/17/2019 6:16 [...] reviewed this study and agree with theabove report.[facility]IS2019-08-13 19:31:00* Test Item Value Reference Range Interpretation Comme nts APPEARANCE (test code = 1205601919) Slightly Cloudy Clear A COLOR (test code = 5772124703) Yellow Yellow PH (test code = 5383125332) 4.8-8.0 SP GRAVITY (test code = 6898430347) <=1.005 1.003-1.030 GLU U QUAL (test code = 0584445445) Negative Negative BLOOD (test code = 7002023138) Negative Negative KETONES (test code = 0548141545) Negative Negative PROTEIN (test code = 2887-8) Negative Negative UROBILIN (test code = 9132217535) 0.2 mg/dL See_Comment [Automated message] The system which generated this result transmitted reference range: 0-1.0 mg/dL. The reference range was not used to interpret this result as normal/abnormal. BILIRUBIN (test code = 2154419246) Negative Negative NITRITE (test code = 6848410827) Negative Negative LEUK SUMMER (test code = 5695286545) Large Negative A RBC/HPF (test code = 1778532349) See_Comment [Automated message] The system which generated this result transmitted reference range: 0 - 3 HPF. The reference range was not used to interpret this result as normal/abnormal. WBC/HPF (test code = 8591854856) See_Comment H [Automated message] The system which generated this result transmitted reference range: 0 - 5 HPF. The reference range was not used to interpret this result as normal/abnormal. BACTERIA (test code = 0319209621) Moderate Negative A SQ EPITH (test code = 2423289636) HPF Lab Interpretation (test code = 70138-4) Abnormal [facility] OR [facility] ONLY - WET [id number] 19:28:00* Test Item Value Reference Range Interpretation Comme nts Wet Prep (test code = 0218574456) No Trichomonas vaginalis present [facility] ONLY - FERN [id number] 19:24:00* Test Item Value Reference Range Interpretation Comme nts Fern Test (test code = 0373367433) Negative [facility] History and Physical Notes Date/Time [...] Vomiting (N/V). 30 tablet 0 Taking vit 53-vozl-irdyl-dha (SELECT-OB + DHA) 29 mg iron-1 mg [...] (98.5 ?F)] Temp source: Temporal Artery (09/25 0119) Pulse: -- Resp: -- SpO2: -- Height: -- Weight: -- BMI (calculated): -- PHYSICAL EXAMINATIONS Gen: alert and oriented, well appearing, no distress CV: RRR, normal S1/S2, no m/r/g Resp: normal work of breathing, lungs CTAB Abd: gravid, soft, NTTP Ext: no calf tenderness or edema : SVE 60/-3 by LOOM OPERATOR APPRENTICE OF LABORATORY, PATHOLOGY, AND RADIOLOGY DATA Lab [...] - Feels safe - Seen by social insurance analyst on 08/22/2023 Drug use - UDS positive for alprazolam on multiple UDS this , last one on 09/18/23 - Seen by social insurance analyst on 08/22/2023 -UDS sent today Hx of [...] details Kory Cruz MD 09/25/2023 1:46 AM [facility] 2023-09-16 03:28:41 ANTEPARTUM HISTORY & PHYSICAL IDENTIFYING DATA Arina Valdes is 22 year old, /White, 37w4d, female with STEVE 10/03/2023, by Last Menstrual Period. : 2000 Primary Care Phys[facility] Day: 1 CHIEF COMPLAINT contractions HISTORY OF [...] Vomiting (N/V). 30 tablet 0 Taking vit 99-qbtg-gkxju-dha (SELECT-OB + DHA) 29 mg iron-1 mg [...] first moderate variability now with minimal variability [facility]: 2-3/10 min ASSESSMENT AND PLAN 22 year old @37w4d With acute drup use and now non reactive NST --labs + IVF ordered --Internal medicine consult Ariela Wilkinson MD [facility] Procedure Notes Date/Time Note Provider [...] and catheter Guidance with: landmark technique} Epidural/Spinal [place] and/or Catheter: Epidural/Spinal Kit: BBraun Needle Type: [...] then tegaderm and tape. No apparent complications. [facility] AIDE AN-ANESTHESIOLOGY ANESTHESIOLOGIST [facility] Notes Date/Time Note Provider Source Mann Deras [facility]2024-07-29 13:07:23 Patients states" I have ongoing problem with my back it all started 7 mos ago after they do epidural on me 8x, the Prescribed muscle relaxant and steroids but not helping, cannot do more stuff for 6 days because my back is hurting me" Patient came in walking on steady gait, able to verbalized name and birthday. Leonor Slaughter RNKeenan Private HospitalQulsdb3756-42-47 12:56:00 Images from the original note were not included. [facility] Emergency Department Note Patient Name: Arina Valdes Date of : 2000 23 year old female Treatment Room: [place] [address] Primary Care Physician: Kory Cruz Patient Escorted [...] is hurting me" History provided by: Patient per diem interpreter used: No Back Pain Location: Lumbar spine, [...] Eval: ED Events Date/Time Event User Comments 04/19/241406 Medical Screening Begins DORIAN LOZOYA MD -- 04/19/24 140 First Provider Evaluation DORIAN LOZOYA MD -- ED COURSE Patient's condition stable, with no neurologic deficits, not febrile, pain under control, she requested to go home because she has to picker and sorter load and unload his son, she is leaving before the results of her imaging studies and her lab work. Patient understand the risk ligated to this but she insited in leaving the ED. Diagnosis/Impression as of 04/19/241643 Acute bilateral low back pain with sciatica, [...] Electronically signed by: Dorian Lozoya MD 04/19/241646 [facility]2024-07-01 00:00:00 Mann Deras [facility]2024-03-28 13:26:12 Name and verified. Pt stated that she was not able to go see psych as she resendiz snot have insurance. Wanted to see if he still has medicaid- sent her to [facility]. COLETTE ABBOTT RN 12/18/2023 1:26 PM Colette Abbott [place] 040694-03-08 08:59:02 ATC pt. Straight to . LM on for pt to return call. ConceptoMedt message sent. COLETTE ABBOTT RN 11/28/2023 8:59 AM [facility] AIDE Colette Abbott [facility]Izzjuu6365-80-61 14:27:31 Name and verified. Had to reschedule it for Friday. Woke up sick. Picked up medication from pharmacy and started taking both The Zoloft and Buspirone. She has not felt a change at this time. Advised pt that I will call her on Friday. Verbalized understanding. COLETTE ABBOTT RN 11/21/2023 2:30 PM [facility] AIDE Colette Abbott [facility] ClevelandYdjfti9017-73-21 09:35:26 Name and verified. Pt stated that she was incarcerated and was released on 10/30 and had 24 pills left which lasted her 12 days. I advised her that I will call pharmacy and will call her back. Verbalized understanding. Spoke to [facility]- the last fill of the Buspirone [...] take afterwards. Pt stated that she will picker and sorter load and unload both medications as pharmacy. Pt stated that her psychiatry appt is this . I advised her that I will call her on Friday to see how appt went and to see if the provider changed anything. Verbalized understanding. COLETTE ABBOTT RN 11/18/2023 9:39 AM [facility] Colette Abbott [facility] ClevelandTjfiwi1802-50-78 14:36:08 ATC pt. DANNY on for pt to return call. ConceptoMedt message sent. COLETTE ABBOTT RN 11/17/2023 2:37 PM [place] [id number] 10:27:16 Name and verified. Pt stated now [...] doing and if they changed any medication. ATCRanjan HODGSON on for pt to return call. COLETTE ABBOTT RN 11/17/2023 10:39 AM [place] 712474-02-26 08:59:21 ATC. Danny on for pt to return call. COLETTE ABBOTT RN 11/17/2023 8:59 AM [place] [address]-02-24 12:16:29 Arina Valdes is a 23 year old female Pt is requesting refill for Buspirone but would like to discuss a higher dosage. Pt asking if appt is needed can it be telehealth because she can not get transportation to [place] at this time. Please call pt back at [phone]. METRIC AIDE Lori GeorgeKeenan Private HospitalPenzqk0459-90-72 15:59:41 Name and verified. Pt stated that [...] understanding. COLETTE ABBOTT RN 10/09/2023 4:01 PM [facility] AIDE Colette Abbott [facility] ClevelandLyktoc9779-96-70 14:49:39 Per Pt- hx of anxiety and [...] again. COLETTE ABBOTT RN 10/09/2023 2:53 PM [facility]2024-01-18 14:31:55 Patient states she is having signs of pp depression. She states Dr. Cruz told her to call and she would send in a prescription for her. She is not having a good day today, no thoughts of hurting herself or the baby but feels like nothing is going right today. [id number] - [place], [place] - [facility] [employer] [address] A AvalosKeenan Private HospitalNltmww0822-11-29 23:31:11 Problem: Pain Goal: Control of pain [...] Goal: Mood stable Outcome: Progressing as expected METRIC AIDE Flaquita Branch [facility] ClevelandWrqslw9309-49-73 08:06:29 Problem: Pain Goal: Control of pain [...] Goal: Mood stable Outcome: Progressing as expected [facility] AIDE Nesha Matta [facility]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
[2024-08-03] MEDS ORDERED: hydrOXYzine HCL 25 MG TAB ONE (07:49)
--- NOTE | 2024-08-03 08:26 | RAD REPORT ---
EXAM: Chest Single View HISTORY: CHEST PAIN COMPARISON: 09/19/2017 FINDINGS: LUNGS/PLEURA: The lungs are clear. No pleural effusions or pneumothorax. No pulmonary edema. MEDIASTINUM: The mediastinal silhouette is within normal limits. CARDIAC: The cardiac silhouette is within normal limits. UPPER ABDOMEN: No significant abnormality. BONES: No acute fracture. LINES/TUBES/OTHER: N/A IMPRESSION: No evidence of acute cardiopulmonary disease
[2024-08-03 08:57] LABS: Specific Gravity > 1.030 (1.005-1.030)
--- NOTE | 2024-08-03 09:03 | EDPHYS ---
Physician Documentation [facility] Name: Arina Valdes Age: 23 yrs Sex: Female : 2000 Arrival Date: 08/03/2024 Time: 07:16 Bed 5 Private MD: ED Physician Loyd Araiza HPI: 08/03 07:35 This 23 yrs old Female presents to ER via Unassigned with complaints of Chest ec2 Pain, Anxiety, left armpit pain. 07:35 Patient arrives today d/t concern for anxiety and chest pain. Patient reports that she ec2 has been experiencing a lot of stress in her life recently with the passing of loved ones and recently found out that she was 2 days ago. Patient reports that she was woke up this morning with palpitations and left-sided chest pain, states that she had racing thoughts as well. States that she has a history of anxiety and this feels similar. Reports no cardiac history, no high blood pressure or hyperlipidemia.. 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 - Infectious Disease History:: Denies. - Social history:: Smoking status: Reported history of juuling and/or vaping. ROS: 07:35 Constitutional: as per hpi ec2 Exam: 07:35 Constitutional: GEN: NAD Head: atraumatic Eyes: EOMI Ears: External ears are ec2 normal. CV: regular rate LUNGS: no respiratory distress ABD: non-distended SKIN: no evidence of rashes MSK: no evidence of trauma Vital Signs: 07:38 BP 123 / 66; Pulse 78; Resp 16; Temp 98.2(TE); Pulse Ox 98% on R/A; Weight 99.79 kg; ss Height 5 ft. 5 in. ; Pain 6/10; 09:00 BP 104 / 50; Pulse 67; Resp 16; Pulse Ox 99% on R/A; db 07:38 Body Mass Index 36.61 (99.79 kg, 165.1 cm) ss 07:38 Pain Scale: Adult ss MDM: 07:23 Medical Screening Exam initiated ec2 07:35 Data reviewed: vital signs. ED course: Patient arrives today with chest pain and ec2 concern for anxiety. Examination remarkable for well-appearing nontoxic individual hemodynamically stable who is otherwise in no acute distress with a reassuring examination. Will obtain EKG and chest x-ray. Suspect anxiety. Additionally considered other processes such as electrolyte disturbances, ACS, PE. Patient without any significant risk factors to indicate these. Will also test her however patient without any abdominal pain or vaginal bleeding to indicate abnormal at this time. LMP was approximately 1 month ago.. 07:36 ED course: EKG independently reviewed and interpreted by me, shows normal sinus rhythm, ec2 rate 64, no acute ST segment elevations, intervals are nonactionable.. 09:02 ED course: Chest x-ray shows no acute intrathoracic process. Urine is positive for ec2 as expected. Will discharge to home and have the patient follow-up expectantly with sandblast carver. Start the patient Atarax and instructed her on return precautions. Presentation consistent with anxiety. . 11 07:35 Order name: Test, Urine; Complete Time: 09:02 ec2 08/03 07:35 Order name: CXR XRAY; Complete Time: 09:02 ec2 08/03 07:35 Order name: EKG - Nurse/Tech; Complete Time: 07:46 ec2 Administered Medications: 07:50 Drug: hydrOXYzine PO 50 mg PO once Route: PO; db 08:50 Follow up: Response: No adverse reaction db Disposition Summary: 08/03/24 09:03 Discharge Ordered Notes: Location: Home ec2 Condition: Stable ec2 Diagnosis - Anxiety disorder, unspecified ec2 - state, incidental ec2 Followup: ec2 - With: Private Physician - When: - Reason: Re-evaluation by your physician Discharge Instructions: - Discharge Summary Sheet ec2 - Generalized Anxiety Disorder, Adult ec2 Forms: - Medication Reconciliation Form ec2 - Antibiotic Education ec2 - Prescription Opioid Use ec2 - Patient Portal Instructions ec2 - Leadership Thank You Letter ec2 Prescriptions: - Hydroxyzine HCl 25 mg Oral Tablet - take 1 tablet ORAL route every 6 hours As needed; 30 tablet; Refills: 0, ec2 Product Selection Permitted Signatures: Dispatcher [employer] Alva Donovan RN RN ss Sandy Coe RN RN db Loyd Araiza MD MD ec2 Corrections: (The following items were deleted from the chart) 07:36 07:35 ED course: Patient arrives today with chest pain and concern for anxiety. ec2 Examination remarkable for well-appearing nontoxic individual hemodynamically stable who is otherwise in no acute distress with a reassuring examination. Will obtain EKG and chest x-ray. Suspect anxiety. Additionally considered other processes such as electrolyte disturbances, ACS, PE.. ec2 07:38 07:35 ED course: Patient arrives today with chest pain and concern for anxiety. ec2 Examination remarkable for well-appearing nontoxic individual hemodynamically stable who is otherwise in no acute distress with a reassuring examination. Will obtain EKG and chest x-ray. Suspect anxiety. Additionally considered other processes such as electrolyte disturbances, ACS, PE.. ec2
--- NOTE | 2024-08-03 09:03 | ER ---
Nurse's Notes [facility] Name: Arina Valdes Age: 23 yrs Sex: Female : 2000 Arrival Date: 08/03/2024 Time: 07:16 Bed 5 Private MD: Diagnosis: Anxiety disorder, unspecified; state, incidental Presentation: 08/03 07:38 Chief complaint: Patient states: "I woke up crying this morning at 0645. The L side of ss my chest and armpit hurts too. I found out I was the day before yesterday.". Coronavirus screen: Client denies travel out of the [place] in the last 14 days. Ebola Screen: Patient denies exposure to infectious person. Patient denies travel to an Ebola-affected area in the 21 days before illness onset. Initial Sepsis Screen: Does the patient meet any 2 criteria? No. Patient's initial sepsis screen is negative. Does the patient have a suspected source of infection? No. Patient's initial sepsis screen is negative. Risk Assessment: Do you want to hurt yourself or someone else? Patient reports no desire to harm self or others. Onset of symptoms was August 03, 2024. 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 - Infectious Disease History:: Denies. - Social history:: Smoking status: Reported history of juuling and/or vaping. Screenin:22 [facility] ED Fall Risk Assessment (Adult) History of falling in the last 3 months, db including since admission No falls in past 3 months (0 pts) Confusion or Disorientation No (0 pts) Intoxicated or Sedated No (0 pts) Impaired Gait No (0 pts) Mobility Assist Device Used No (0 pt) Altered Elimination No (0 pt) Score/Fall Risk Level 0 - 2 = Low Risk Oriented to surroundings, Maintained a safe environment. Abuse screen: Denies threats or abuse. Denies injuries from another. Nutritional screening: No deficits noted. Tuberculosis screening: No symptoms or risk factors identified. Assessment: 08:00 Reassessment: Patient appears in no apparent distress at this time. Patient and/or db family updated on plan of care and expected duration. Pain level reassessed. Patient is alert, oriented x 3, equal unlabored respirations, skin warm/dry/pink. General: Appears in no apparent distress. comfortable, Behavior is cooperative, anxious. Pain: Complains of pain in chest Pain radiates to left arm Pain began gradually. Neuro: Level of Consciousness is awake, alert, obeys commands, Oriented to person, place, time, situation. Cardiovascular: Reports chest pain. 08:08 Reassessment: PATIENT AMBULATORY TO RESTROOM. db 09:00 Reassessment: Patient appears in no apparent distress at this time. Patient and/or db family updated on plan of care and expected duration. Pain level reassessed. Patient is alert, oriented x 3, equal unlabored respirations, skin warm/dry/pink. Reassessment: Patient states feeling better. Patient states symptoms have improved. General: Appears in no apparent distress. comfortable, Behavior is calm, cooperative. Pain: Denies pain. Vital Signs: 07:38 BP 123 / 66; Pulse 78; Resp 16; Temp 98.2(TE); Pulse Ox 98% on R/A; Weight 99.79 kg; ss Height 5 ft. 5 in. ; Pain 6/10; 09:00 BP 104 / 50; Pulse 67; Resp 16; Pulse Ox 99% on R/A; db 07:38 Body Mass Index 36.61 (99.79 kg, 165.1 cm) ss 07:38 Pain Scale: Adult ss ED Course: 07:18 Patient arrived in ED. im 07:23 Loyd Araiza MD is Attending Physician. ec2 07:30 Sandy Coe, CARLOS is Primary Nurse. db 07:41 Triage completed. ss 07:42 Arm band placed on right wrist. ss 07:50 Radiology exam delayed due to test not completed at this time. md2 08:26 CXR XRAY In Process Unspecified. EDMS 08:28 Note: per braulio Sanchez patient and go ahead with CXR. Do not wait for UPT. . nathaniel 09:22 Patient has correct armband on for positive identification. Bed in low position. Call db light in reach. Side rails up X 1. Placed in gown. Provided Education on: DISCHARGE AND FOLLOWUP. Pulse ox on. NIBP on. Warm blanket given. Pillow given. 09:22 No provider procedures requiring assistance completed. Patient did not have IV access db during this emergency room visit. Patient maintains SpO2 saturation greater than 95% on room air. 10:03 blanket found in room while it was being cleaned. attempted to call pt, phone wasn't bd taking calls, will send blanket to lost and found with pts name on it. Administered Medications: 07:50 Drug: hydrOXYzine PO 50 mg PO once Route: PO; db 08:50 Follow up: Response: No adverse reaction db Medication: 09:22 VIS not applicable for this client. db Outcome: 09:03 Discharge ordered by . ec2 09:22 Discharged to home ambulatory, with family, db 09:22 Condition: stable 09:22 Discharge instructions given to patient, family, Instructed on discharge instructions, follow up and referral plans. 09:26 Patient left the ED. db Signatures: Dispatcher [employer] EDLeatha Mac Shelby, Sandy Tejada RN, RN RN db Ellen Gongora md2 Tricia Mahmood Edwin, MD MD ec2
[2024-08-03 09:31] VITALS: TEMP 98.2
[2024-08-03 09:32] VITALS: BP 104/50; O2SAT 99
== END 2024-08-03 09:26 | disposition home or self-care (01) ==
LOC: ER 07:16
DX: F41.9 Anxiety disorder, unspecified (principal); Z33.1 Pregnant state, incidental
CPT/HCPCS: 71045; 81025; 99283

== ENCOUNTER 2024-08-17 19:33 | Emergency (ER) | payer OTHER ==
[2024-08-17 20:48] LABS: Specific Gravity 1.028 (1.005-1.030)
[2024-08-17 20:50] LABS: Specific Gravity 1.028 (1.005-1.030); Sqamous Epithelial 20-50 /HPF (None Seen); Urine Bacteria <20 /HPF (<20); Urine Bilirubin NEGATIVE (Negative); Urine Blood 3+ (OVER) (Negative); Urine Clarity Extremely Turbid (Clear); Urine Color Dark-Brown (Yellow); Urine Culture Reflex Order NOT NEEDED; Urine Glucose NEGATIVE (Negative); Urine Ketones TRACE (Negative); Urine Microscopic Reflex YN ORDER UMIC; Urine Nitrite NEGATIVE (Negative); Urine Protein 2+ (Negative); Urine RBC >50 /HPF (None Seen); Urine Urobilinogen 1+ (Normal); Urine WBC >50 /HPF (<5); Urine pH 5.5 (5.0-7.0)
[2024-08-17 20:52] LABS: Absolute Basophils 0.1 K/uL (0-0.5); Absolute Eosinophils 0.3 K/uL (0-0.5); Absolute Lymphocytes (CBC) 2.5 K/uL (0.7-4.9); Absolute Monocytes 0.6 K/uL (0.1-1.3); Absolute Neutrophil 5.4 K/uL (1.8-8.0); Eosinophils % 3.8 % (0-4.4); Hemoglobin 11.8 g/dL (12.0-15.0); Lymphocytes % 28.1 % (15.3-44.8); MCH 24.1 pg (27.0-35.0); MCV 75.4 fL (80-100); MPV 10.3 fL (7.6-11.3); Monocytes % 7.1 % (3.3-12.3); Nucleated Red Blood Cells % 0.3 % (0-0); Platelets 195 thou/uL (152-406); Red Cell Distribution Width 18.5 % (12.1-15.2)
[2024-08-17 21:21] LABS: Anion Gap 8.1 mEq/L (5.0-15.0); Potassium 3.1 mEq/L (3.5-5.1)
--- NOTE | 2024-08-17 21:27 | RAD REPORT ---
EXAMINATION: US FIRST TRIMESTER TRANSVAGINAL WITH DOPPLER CLINICAL INDICATION: with vaginal bleeding TECHNIQUE: Real-time obstetrical ultrasonography of the maternal pelvis and first trimester was performed transvaginally. Color and spectral Doppler evaluation of the ovaries was performed. COMPARISON: No prior exam. FINDINGS: The uterus measures 10 x 4 x 6 cm A gestational sac is present within the endometrium is not visualized. Right ovary normal in size and echotexture Left ovary normal in size and echotexture Right and left adnexa unremarkable No significant free fluid IMPRESSION: Non visualization of a gestational sac within the endometrium. This could be a viable intrauterine pr egnancy in which the gestational sac not seen secondary to the early gestation. Other considerations include an and even ectopic . This should be correlated clinically and with serial beta-hCG levels. Follow-up endovaginal sonogram in one week recommended for reevaluation
--- NOTE | 2024-08-17 21:30 | ER ---
Nurse's Notes [facility] Name: Arina Valdes Age: 23 yrs Sex: Female : 2000 Arrival Date: 08/17/2024 Time: 19:33 Bed 12 Private MD: Diagnosis: Complete or unspecified spontaneous without complication Presentation: 08/17 19:59 Chief complaint: Patient states: Approximately 6 weeks . Pt states that cm10 yesterday she started having vaginal bleeding and passing blood clots. Pt states that today the bleeding has slowed down and only sees blood when she wipes. Coronavirus screen: Client denies travel out of the [place] in the last 14 days. Ebola Screen: Patient denies travel to an Ebola-affected area in the 21 days before illness onset. No symptoms or risks identified at this time. Initial Sepsis Screen: Does the patient meet any 2 criteria? No. Patient's initial sepsis screen is negative. Does the patient have a suspected source of infection? No. Patient's initial sepsis screen is negative. Risk Assessment: Do you want to hurt yourself or someone else? Patient reports no desire to harm self or others. Onset of symptoms was August 17, 2024. 19:59 Method Of Arrival: Ambulatory cm10 19:59 Acuity: PEYTON 3 cm10 Triage Assessment: 20:01 General: Appears in no apparent distress. comfortable, Behavior is calm, cooperative. cm10 Pain: Denies pain. Neuro: No deficits noted. Level of Consciousness is awake, alert, obeys commands, Oriented to person, place, time, situation, Appropriate for age. Respiratory: No deficits noted. Airway is patent Respiratory effort is even, unlabored, Respiratory pattern is regular, symmetrical. : Reports vaginal bleeding that is light flow. Historical: - Allergies: 20:01 No Known Allergies; cm10 - PMHx: 20:01 Bipolar disorder; Heart Murmur; cm10 - Immunization history:: Adult Immunizations up to date. - Infectious Disease History:: Denies. - Social history:: Smoking status: Reported history of juuling and/or vaping. Assessment: 20:30 General: Appears uncomfortable, Behavior is cooperative. Pain: Complains of pain in ha1 pelvis Pain does not radiate. Pain currently is 3 out of 10 on a pain scale. Quality of pain is described as crampy. Neuro: Level of Consciousness is awake, alert, obeys commands, Oriented to person, place, time, situation. Cardiovascular: Capillary refill < 3 seconds Patient's skin is warm and dry. Respiratory: Airway is patent Respiratory effort is even, unlabored, Respiratory pattern is regular, symmetrical. 21:30 Reassessment: Patient and/or family updated on plan of care and expected duration. Pain ha1 level reassessed. Patient is alert, oriented x 3, equal unlabored respirations, skin warm/dry/pink. Patient states feeling better. Vital Signs: 19:59 BP 122 / 76; Pulse 74; Resp 16; Temp 98.7(O); Pulse Ox 100% on R/A; Weight 95.25 kg; cm10 Height 5 ft. 5 in. ; Pain 0/10; 21:00 BP 121 / 75; Pulse 70; Resp 17 S; Pulse Ox 100% on R/A; ha1 19:59 Body Mass Index 34.95 (95.25 kg, 165.1 cm) cm10 19:59 Pain Scale: Adult cm10 ED Course: 19:35 Patient arrived in ED. ra3 19:36 Lay Briones [facility]-C [facility]. kb 19:36 Remigio Warner MD is Attending Physician. kb 20:01 Triage completed. cm10 20:01 Arm band placed on right wrist. Patient placed in waiting room. cm10 20:15 Inserted saline lock: 20 gauge in left antecubital area, using aseptic technique. Blood ha1 collected. Flushed with 10 mL NS. 20:37 Zuri Ac RN is Primary Nurse. ha1 20:37 Abo/rh Typing Sent. ha1 20:37 Basic Metabolic Panel Sent. ha1 20:37 CBC with Diff Sent. ha1 20:37 Test, Urine Sent. ha1 20:37 Quantitative Hcg Sent. ha1 20:37 Urinalysis w/ reflexes Sent. ha1 21:13 US Transvaginal Ob In Process Unspecified. EDMS Administered Medications: 21:41 Drug: Potassium Chloride PO 40 mEq PO once Route: PO; ha1 21:51 Follow up: Response: No adverse reaction ha1 Outcome: 21:30 Discharge ordered by . kb 22:02 Patient left the ED. ha1 Signatures: Dispatcher [employer] EDMS Jese Brionesistin, CERTIFIED PROSTHETIST-C CERTIFIED PROSTHETIST-Zuri Ramesh, RN RN ha1 Stephanie Plata RN RN cm10 Magnolia Chacon
--- NOTE | 2024-08-17 21:30 | EDPHYS ---
Physician Documentation [facility] Name: Arina Valdes Age: 23 yrs Sex: Female : 2000 Arrival Date: 08/17/2024 Time: 19:33 Bed 12 Private MD: ED Physician Remigio Warner HPI: 08/17 22:57 This 23 yrs old Female presents to ER via Ambulatory with complaints of kb Vaginal Bleeding - and cramping. 22:58 Pt is a 23 year old female who presents for vaginal bleeding. States she believes she kb had a miscarriage and that she passed the fetus but wanted to confirm that there was nothing left in the uterus. 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 States she started bleeding yesterday, then passed several large clots. Today the bleeding slowed and now she only has a small amount when she wipes. Denies any pain. States she was 6 weeks . A2. Historical: - Allergies: 20:01 No Known Allergies; cm10 - PMHx: 20:01 Bipolar disorder; Heart Murmur; cm10 - Immunization history:: Adult Immunizations up to date. - Infectious Disease History:: Denies. - Social history:: Smoking status: Reported history of juuling and/or vaping. ROS: 22:54 Constitutional: As per HPI kb Exam: 22:54 Constitutional: This is a well developed, well nourished patient who is awake, alert, kb and in no acute distress. Head/Face: Normocephalic, atraumatic. ENT: Moist Mucous membranes Cardiovascular: Regular rate Respiratory: Respirations even and unlabored. No increased work of breathing. Talking in full sentences Abdomen/GI: Soft, non-tender. No distention Skin: Warm, dry with normal turgor. Normal color. MS/ Extremity: Pulses equal, no cyanosis. Neurovascular intact. Full, normal range of motion. Neuro: Awake and alert, GCS 15, oriented to person, place, time, and situation. Vital Signs: 19:59 BP 122 / 76; Pulse 74; Resp 16; Temp 98.7(O); Pulse Ox 100% on R/A; Weight 95.25 kg; cm10 Height 5 ft. 5 in. ; Pain 0/10; 21:00 BP 121 / 75; Pulse 70; Resp 17 S; Pulse Ox 100% on R/A; ha1 19:59 Body Mass Index 34.95 (95.25 kg, 165.1 cm) cm10 19:59 Pain Scale: Adult cm10 MDM: 19:37 Medical Screening Exam initiated kb 22:54 Differential diagnosis: spontaneous , threatened . Data reviewed: vital kb signs, nurses notes. Counseling: I had a detailed discussion with the patient and/or guardian regarding the historical points, exam findings, and any diagnostic results supporting the discharge/admit diagnosis, lab results, radiology results, the need for outpatient follow up, a family practitioner, to return to the emergency department if symptoms worsen or persist or if there are any questions or concerns that arise at home. ED course: Pt has no pain, bleeding has resolved, pt believes she passed the fetus from what she saw. Pt educated on return precautions and need to have repeat Hcg to ensure it is going down. . 08/17 20:02 Order name: Abo/rh Typing; Complete Time: 21:22 kb 08/17 20:02 Order name: Basic Metabolic Panel; Complete Time: 21:22 kb 08/17 20:02 Order name: CBC with Diff; Complete Time: 21:06 kb 08/17 20:02 Order name: Test, Urine; Complete Time: 20:51 kb 08/17 20:02 Order name: Quantitative Hcg; Complete Time: 21:22 kb 08/17 20:02 Order name: Urinalysis w/ reflexes; Complete Time: 20:51 kb 08/17 20:02 Order name: US Transvaginal Ob; Complete Time: 21:29 kb 08/17 20:02 Order name: IV Saline Lock; Complete Time: 20:37 kb 08/17 20:02 Order name: Labs collected and sent; Complete Time: 20:37 kb 08/17 20:02 Order name: NPO; Complete Time: 20:37 kb Administered Medications: 21:41 Drug: Potassium Chloride PO 40 mEq PO once Route: PO; ha1 21:51 Follow up: Response: No adverse reaction ha1 Disposition Summary: 08/17/24 21:30 Discharge Ordered Notes: Location: Home kb Condition: Stable kb Diagnosis - Complete or unspecified spontaneous without complication kb Followup: kb - With: Emergency Department - When: As needed - Reason: Worsening of condition Followup: kb - With: Private Physician - When: 2 - 3 days - Reason: Recheck today's complaints, Continuance of care, Re-evaluation by your physician Discharge Instructions: - Discharge Summary Sheet kb - Miscarriage, [id number] kb Forms: - Work release form kb - Family Work Release kb - Medication Reconciliation Form kb - Antibiotic Education kb - Prescription Opioid Use kb - Patient Portal Instructions kb - Leadership Thank You Letter kb Signatures: Dispatcher [employer] EDLay Irene, DISPATCH LEAD-C NORRIS-Zuri Ramesh, RN RN ha1 Stephanie Plata RN RN cm10 Corrections: (The following items were deleted from the chart) 20:03 20:03 ABO/RH TYPING+BB.LAB.BRZ ordered. EDMS EDMS 20:03 20:03 BASIC METABOLIC PANEL+C.LAB.BRZ ordered. EDMS EDMS 20:03 20:03 CBC+H.LAB.BRZ ordered. EDMS EDMS 20:03 20:03 Test, Urine+UC.LAB.BRZ ordered. EDMS EDMS 20:03 20:03 QUANTITATIVE HCG+C.LAB.BRZ ordered. EDMS EDMS 20:03 20:03 Urinalysis+U.LAB.BRZ ordered. EDMS EDMS
[2024-08-17] MEDS ORDERED: POTASSIUM CL SA 10 MEQ TAB PO ONE (21:44)
[2024-08-18 05:05] VITALS: TEMP 98.7; O2SAT 100
[2024-08-18 05:15] VITALS: BP 121/75
== END 2024-08-17 22:02 | disposition home or self-care (01) ==
LOC: ER 19:33
DX: O03.9 Complete or unspecified spontaneous abortion without complication (principal)
CPT/HCPCS: 36415; 76817; 80048; 81001; 81025; 84702; 85025; 86900; 86901; 99283

== ENCOUNTER 2024-10-07 13:45 | Emergency (ER) | payer OTHER, SELFPAY ==
[2024-10-07] MEDS ORDERED: DIPHENHYDRAMINE 50 MG/ML VIAL ONE (14:11)
[2024-10-07] MEDS ORDERED: METOCLOPRAMIDE 10 MG/2mL INJ ONE (14:11)
[2024-10-07] MEDS ORDERED: NA CHLORIDE 0.9% 1,000 ML ONE (14:11)
[2024-10-07] MEDS ORDERED: dexAMETHasone 10 MG/ML VIAL ONE ×2 (14:11→16:02)
[2024-10-07] MEDS ORDERED: ACETAMINOPHEN 500 MG TAB ONE (14:29)
[2024-10-07 14:31] LABS: Absolute Lymphocytes (CBC) 1.2 K/uL (0.7-4.9); Absolute Monocytes 0.3 K/uL (0.1-1.3); Absolute Neutrophil 5.8 K/uL (1.8-8.0); Basophils % 0.4 % (0-1.3); Eosinophils % 0.2 % (0-4.4); Hematocrit 42.4 % (36.0-45.0); Lymphocytes % 16.8 % (15.3-44.8); MCH 24.8 pg (27.0-35.0); MCV 75.2 fL (80-100); MPV 10.3 fL (7.6-11.3); Monocytes % 4.1 % (3.3-12.3); Neutrophils % 78.5 % (41.7-73.7); Platelets 191 thou/uL (152-406); RBC Red Blood Cell Count 5.63 M/uL (3.86-4.86); Red Cell Distribution Width 17.7 % (12.1-15.2)
[2024-10-07 14:37] LABS: Specific Gravity > 1.030 (1.005-1.030); Sqamous Epithelial 20-50 /HPF (None Seen); Transitional Epithelial <5 /HPF (None Seen); Urine Bacteria <20 /HPF (<20); Urine Bilirubin NEGATIVE (Negative); Urine Blood 1+ (Negative); Urine Clarity Extremely Turbid (Clear); Urine Color Yellow (Yellow); Urine Culture Reflex Order NOT NEEDED; Urine Glucose NEGATIVE (Negative); Urine Ketones 4+ (Over) (Negative); Urine Micro Reflex YN NO BILL MICROSCOPIC; Urine Mucus Slight /HPF (None Seen); Urine Nitrite NEGATIVE (Negative); Urine Protein 1+ (Negative); Urine RBC 21-50 /HPF (None Seen); Urine Urobilinogen 1+ (Normal); Urine WBC <5 /HPF (<5)
--- NOTE | 2024-10-07 14:41 | RAD REPORT ---
EXAMINATION: CT HEAD WITHOUT CONTRAST CLINICAL INDICATION: Female, 23 years old.Dizziness;Headache TECHNIQUE: Axial CT images from the skull base to the vertex without intravenous contrast. Coronal an d sagittal reformatted images were created from the data set. One or more of the following dose reduction techniques were used: Automated exposure control, adjustment of the mA and/or kV according to patient size, and/or iterative reconstruction. Unless otherwise specified, incidental findings do not require dedicated imaging follow-up. [id number]. COMPARISON: 01/31/2024 FINDINGS: INTRACRANIAL: No acute intracranial hemorrhage. No hydrocephalus. No mass effect or midline shift. No significant white matter disease. VASCULATURE: No visualized abnormalities in the arteries or dural venous sinuses. SCALP/SKULL: No significant soft tissue or osseous abnormalities. SINUSES: The visualized paranasal sinuses and mastoid air cells are predominantly clear. IMPRESSION: No acute intracranial abnormality.
[2024-10-07 14:45] LABS: Albumin 4.1 g/dL (3.4-5.0); Albumin/Globulin Ratio 0.9 (1.1-1.8); Anion Gap 14.4 mEq/L (5.0-15.0); Bilirubin Direct 0.3 mg/dL (0-0.2); Bilirubin Indirect, Calculated 0.8 mg/dL (0.2-0.8); Bilirubin Total 1.1 mg/dL (0.2-1.0); Globulin 4.6 g/dL (2.3-3.5); Potassium 3.4 mEq/L (3.5-5.1); Protein, Total 8.7 g/dL (6.4-8.2)
[2024-10-07 14:52] LABS: PT Prothrombin Time 13.6 SECONDS (9.4-12.5); Protime INR 1.3
[2024-10-07 15:25] LABS: SARS-CoV-2 Antigen CONTROL BLUE LINE VIS/BG OK; SARS-CoV-2 Antigen Rapid Res Negative (Negative)
[2024-10-07] MEDS ORDERED: KETOROLAC 30 MG/ML INJ ONE (16:02)
--- NOTE | 2024-10-07 16:23 | ER ---
Nurse's Notes [facility] Name: Arina Valdes Age: 23 yrs Sex: Female : 2000 Arrival Date: 10/07/2024 Time: 13:45 Bed 20 Private MD: Diagnosis: Headache;Dizziness and giddiness;Paresthesia of skin;Rash and other nonspecific skin eruption;Nausea with vomiting, unspecified Presentation: 10/07 13:53 Chief complaint: Patient states: I have spider bites on my right upper arm, left elbow, jb4 and multiple on my left hip. I have been getting dizzy, vomiting, and having numbness and tingling to my arms and legs. Coronavirus screen: At this time, the client does not indicate any symptoms associated with coronavirus-19. Ebola Screen: No symptoms or risks identified at this time. Initial Sepsis Screen: Does the patient meet any 2 criteria? No. Patient's initial sepsis screen is negative. Does the patient have a suspected source of infection? No. Patient's initial sepsis screen is negative. Risk Assessment: Do you want to hurt yourself or someone else? Patient reports no desire to harm self or others. Onset of symptoms was October 07, 2024. Transition of care: patient was not received from another setting of care. 13:53 Method Of Arrival: Law Enforcement: Perfecto pittman 13:53 Acuity: PEYTON 3 jb4 Historical: - Allergies: 13:55 No Known Drug Allergies; jb4 - Home Meds: 13:55 Klonopin Oral [Active]; Buspirone Oral [Active]; THC oil [Active]; jb4 - PMHx: 13:55 Bipolar disorder; Heart Murmur; Depressive disorder; Anxiety; PTSD; jb4 - PSHx: 13:55 None; jb4 - Immunization history:: Adult Immunizations not up to date. - Infectious Disease History:: Denies. - Social history:: Smoking status: Reported history of juuling and/or vaping. Screenin:25 [facility] ED Fall Risk Assessment (Adult) History of falling in the last 3 months, kc6 including since admission No falls in past 3 months (0 pts) Confusion or Disorientation No (0 pts) Intoxicated or Sedated No (0 pts) Impaired Gait No (0 pts) Mobility Assist Device Used No (0 pt) Altered Elimination No (0 pt) Score/Fall Risk Level 0 - 2 = Low Risk Oriented to surroundings, Maintained a safe environment, Educated pt \T\ family on fall prevention, incl call for assistance when getting out of bed. Abuse screen: Denies threats or abuse. Denies injuries from another. Nutritional screening: No deficits noted. Tuberculosis screening: No symptoms or risk factors identified. Assessment: 14:00 General: Appears in no apparent distress. comfortable, unkempt, well developed, kc6 Behavior is calm, cooperative, appropriate for age, Smells of body odor. Pain: Denies pain. Neuro: Level of Consciousness is awake, alert, obeys commands, Oriented to person, place, time, situation, Appropriate for age Reports dizziness, numbness in right arm and left arm paresthesias in right arm and left arm Denies blurred vision numbness. Cardiovascular: Capillary refill < 3 seconds. Respiratory: Airway is patent Trachea midline Respiratory effort is even, unlabored, Respiratory pattern is regular, symmetrical. GI: Abdomen is flat, non-distended, Bowel sounds present X 4 quads. Abd is soft and non tender X 4 quads. Patient currently denies abdominal pain, diarrhea, nausea, vomiting. : No signs and/or symptoms were reported regarding the genitourinary system. Urine is cloudy. EENT: No signs and/or symptoms were reported regarding the EENT system. Derm: No signs and/or symptoms reported regarding the dermatologic system. Skin is intact, is healthy with good turgor, Skin is pink, warm \T\ dry. Musculoskeletal: No signs and/or symptoms reported regarding the musculoskeletal system. Circulation, motion, and sensation intact. Range of motion: intact in all extremities. 15:00 Reassessment: Patient appears in no apparent distress at this time. No changes from kc6 previously documented assessment. Patient and/or family updated on plan of care and expected duration. Pain level reassessed. Patient is alert, oriented x 3, equal unlabored respirations, skin warm/dry/pink. 16:55 Reassessment: Patient appears in no apparent distress at this time. No changes from kc6 previously documented assessment. Patient and/or family updated on plan of care and expected duration. Pain level reassessed. Patient is alert, oriented x 3, equal unlabored respirations, skin warm/dry/pink. Patient states feeling better. Patient states symptoms have improved. Vital Signs: 13:53 BP 124 / 70; Pulse 64; Resp 16; Temp 97.9(O); Pulse Ox 100% on R/A; Weight 88.9 kg (M); jb4 Height 5 ft. 5 in. (R); Pain 6/10; 13:53 Body Mass Index 32.62 (88.90 kg, 165.1 cm) jb4 13:53 Pain Scale: Adult jb4 Vitals: 15:00 Heart Tones unable to auscultate FHT's at this time. provider made aware, will kc6 evaluate HCG levels.. ED Course: 13:52 Patient arrived in ED. jb4 13:53 Remigio Warner MD is Attending Physician. vidya 13:53 Remigio Leonard PA is PHCP. cp 13:54 Remigio Warner MD is Attending Physician. cp 13:55 Triage completed. jb4 13:55 Arm band placed on right wrist. jb4 14:06 Ann-Marie Amaya, CARLOS is Primary Nurse. kc6 14:24 Patient has correct armband on for positive identification. Bed in low position. Call kc6 light in reach. Side rails up X 1. Security at bedside. Pulse ox on. NIBP on. Door closed. Noise minimized. Lights dimmed. Warm blanket given. Pillow given. 14:24 Initial lab(s) drawn, by me, sent to lab. Urine collected: clean catch specimen, kc6 cloudy, EKG done, by ED staff, reviewed by Remigio BAIRD COVID swab sent to lab. Flu and/or RSV swab sent to lab. Inserted saline lock: 20 gauge in right antecubital area, using aseptic technique. Blood collected. Flushed with 10 mL NS. Patient maintains SpO2 saturation greater than 95% on room air. 14:31 CT Head Brain wo Cont In Process Unspecified. EDMS 16:55 No provider procedures requiring assistance completed. IV discontinued, intact, kc6 bleeding controlled, No redness/swelling at site. Pressure dressing applied. Administered Medications: 14:24 Not Given (Physician Discretion): Decadron - [id number] mg IVP once cp 14:41 Drug: diphenhydrAMINE IVP 25 mg IVP once Route: IVP; Site: right antecubital; kc6 15:29 Follow up: Response: No adverse reaction kc6 14:41 Drug: metoCLOPramide IVP 10 mg IVP once; over 1 to 2 minutes Route: IVP; Site: right kc6 antecubital; 15:29 Follow up: Response: No adverse reaction kc6 14:41 Drug: NS 0.9% IV 1000 ml IV at 1000 ml once; to be given as a bolus over 60 minutes kc6 Route: IV; Rate: 1000 ml; Site: right antecubital; 16:09 Follow up: Response: No adverse reaction; IV Status: Completed infusion; IV Intake: kc6 1000ml 14:41 Drug: Acetaminophen PO 1000 mg PO once Route: PO; kc6 15:29 Follow up: Response: No adverse reaction kc6 16:09 Drug: Dexamethasone IVP 10 mg IVP once; (not to exceed 40 mg) Route: IVP; Site: right kc6 antecubital; 16:56 Follow up: Response: No adverse reaction kc6 16:09 Drug: Ketorolac IVP 15 mg IVP once Route: IVP; Site: right antecubital; kc6 16:55 Follow up: Response: No adverse reaction; Pain is decreased kc6 Medication: 16:55 VIS not applicable for this client. kc6 Intake: 16:09 IV: 1000ml; Total: 1000ml. kc6 Outcome: 16:23 Discharge ordered by . cp 16:55 Discharged to Law Enforcement kc6 16:55 Condition: good 16:55 Discharge instructions given to patient, police, Instructed on discharge instructions, follow up and referral plans. medication usage, Demonstrated understanding of instructions, follow-up care, medications, Prescriptions given X 2, 16:56 Patient left the ED. kc6 Signatures: Dispatcher [employer] EDNC Remigio Warner MD MD cha Page, Corey, PA PA cp Bryson, James, RN RN jb4 Ann-Marie Amaya RN RN kc6 Corrections: (The following items were deleted from the chart) 13:57 13:55 Home Meds: THC; jbHeidi jb4
--- NOTE | 2024-10-07 16:23 | EDPHYS ---
Physician Documentation [facility] Name: Arina Valdes Age: 23 yrs Sex: Female : 2000 Arrival Date: 10/07/2024 Time: 13:45 Bed 20 Private MD: Remigio Cevallos HPI: 10/07 14:00 This 23 yrs old Female presents to ER via Law Enforcement with complaints of cp Insect Bite. 14:00 by unknown insect, at [facility]. Onset: The symptoms/episode began/occurred last night. The cp patient presents with dizziness, lightheadedness. Onset: The symptoms/episode began/occurred this morning. Associated signs and symptoms: Pertinent positives: headache, tingling of hands and feet, Pertinent negatives: abdominal pain, chest pain, focal weakness, head injury, palpitations, seizure, vomiting. Patient's baseline: Neuro: alert and fully oriented, Motor: no deficits, Ambulation: walks without assistance, Speech: normal. 14:00 Patient reports being off prescribed medications for past few days since being in [facility]. cp 15:27 reports vaginal bleeding 2 weeks ago and no current vaginal bleeding and/or abdominal cp pain. Historical: - Allergies: 13:55 No Known Drug Allergies; jb4 - Home Meds: 13:55 Klonopin Oral [Active]; Buspirone Oral [Active]; THC oil [Active]; jb4 - PMHx: 13:55 Bipolar disorder; Heart Murmur; Depressive disorder; Anxiety; PTSD; jb4 - PSHx: 13:55 None; jb4 - Immunization history:: Adult Immunizations not up to date. - Infectious Disease History:: Denies. - Social history:: Smoking status: Reported history of juuling and/or vaping. ROS: 14:05 Constitutional: Negative for body aches, chills, fever, poor PO intake, cp 14:05 Respiratory: Negative for cough, shortness of breath, wheezing, cp Exam: 14:10 Constitutional: The patient appears in no acute distress, alert, awake, non-toxic, well cp developed, well nourished, 14:10 Head/Face: Normocephalic, atraumatic. cp 14:10 Eyes: Periorbital structures: appear normal, Conjunctiva: normal, no exudate, no injection, Sclera: no appreciated abnormality, Lids and lashes: appear normal, bilaterally, 14:10 ENT: External ear(s): are unremarkable, Nose: is normal, Mouth: Lips: moist, Oral mucosa: moist, Posterior pharynx: Airway: no evidence of obstruction, patent, 14:10 Neck: ROM/movement: is normal, is supple, without pain, no range of motions limitations, 14:10 Chest/axilla: Inspection: normal, 14:10 Cardiovascular: Rate: normal, Rhythm: regular, Edema: is not appreciated, JVD: is not appreciated, 14:10 Respiratory: the patient does not display signs of respiratory distress, Respirations: normal, no use of accessory muscles, no retractions, labored breathing, is not present, Breath sounds: are clear throughout, no decreased breath sounds, no stridor, no wheezing, 14:10 Abdomen/GI: Inspection: abdomen appears normal, Palpation: abdomen is soft and non-tender, in all quadrants, 14:10 Skin: cellulitis, is not appreciated, rash can be described as erythematous, papular, on the right arm and left arm and left hip, 14:10 Neuro: Orientation: to person, place \T\ time. Mentation: is normal, Cerebellar function: is grossly normal, Motor: moves all fours, strength is normal, Sensation: no obvious gross deficits, Vital Signs: 13:53 BP 124 / 70; Pulse 64; Resp 16; Temp 97.9(O); Pulse Ox 100% on R/A; Weight 88.9 kg (M); jb4 Height 5 ft. 5 in. (R); Pain 6/10; 13:53 Body Mass Index 32.62 (88.90 kg, 165.1 cm) jb4 13:53 Pain Scale: Adult jb4 MDM: 13:53 Medical Screening Exam initiated vidya 13:54 Medical Screening Exam initiated vidya 14:45 Differential diagnosis: cellulitis, abscess, bed bug bites, migraine, medication cp withdrawal, . 16:22 Data reviewed: vital signs, nurses notes, lab test result(s), EKG, radiologic studies, cp CT scan, and as a result, I will discharge patient. 16:22 I considered the following discharge prescriptions or medication management in the emergency department Medications were administered in the Emergency Department. See MAR. Independent interpretation of the following test(s) in the Emergency Department EKG: See my EKG interpretation above. Counseling: I had a detailed discussion with the patient and/or guardian regarding the historical points, exam findings, and any diagnostic results supporting the discharge/admit diagnosis, lab results, radiology results, to return to the emergency department if symptoms worsen or persist or if there are any questions or concerns that arise at home. Response to treatment: the patient's symptoms have mildly improved after treatment, and as a result, I will discharge patient. 10/07 14:03 Order name: Basic Metabolic Panel; Complete Time: 14:52 10/07 14:53 Interpretation: Normal except: NA 133; K 3.4; CO2 19; GFR 85. 10/07 14:03 Order name: CBC with Diff; Complete Time: 14:52 10/07 14:53 Interpretation: Normal except: RBC 5.63; MCV 75.2; MCH 24.8; RDW 17.7; UMA% 78.5. 10/07 14:03 Order name: LFT's; Complete Time: 14:52 10/07 14:53 Interpretation: Normal except: BILIT 1.1; BILID 0.3; TP 8.7; GLOB 4.6; A/G 0.9. 10/07 14:03 Order name: Magnesium; Complete Time: 14:52 10/07 15:22 Interpretation: Reviewed. 10/07 14:03 Order name: PT-INR; Complete Time: 15:21 10/07 14:04 Order name: Influenza Screen (a \T\ B); Complete Time: 16:19 10/07 14:04 Order name: SARS RAPID; Complete Time: 16:19 10/07 14:04 Order name: Urinalysis W/Microscopic; Complete Time: 14:52 10/07 14:54 Interpretation: Normal except: [facility] Extremely Turbid; Urine SG > 1.030; UKET 4+ (Over); cp UBLD 1+; UPROT 1+; UUROB 1+; URBC 21-50; SQEPI 20-50. 10/07 14:04 Order name: Test, Urine; Complete Time: 14:52 10/07 14:30 Order name: Abo/rh Typing; Complete Time: 16:19 10/07 14:30 Order name: Quantitative Hcg; Complete Time: 15:21 cp 10/07 15:21 Interpretation: Reviewed. cp 10/07 14:04 Order name: CT Head Brain wo Cont; Complete Time: 14:52 cp 10/07 14:54 Interpretation: Report reviewed. cp 10/07 14:03 Order name: Cardiac monitoring; Complete Time: 14:41 cp 10/07 14:04 Order name: EKG - Nurse/Tech; Complete Time: 14:41 cp 10/07 14:04 Order name: IV Saline Lock; Complete Time: 14:24 cp 10/07 14:04 Order name: Labs collected and sent; Complete Time: 14:24 cp 10/07 14:04 Order name: O2 Per Protocol; Complete Time: 14:09 cp 10/07 14:04 Order name: O2 Sat Monitoring; Complete Time: 14:09 cp 10/07 14:25 Order name: FHT's; Complete Time: 14:58 cp 10/07 14:30 Order name: NPO; Complete Time: 14:41 cp 10/07 15:57 Order name: PO challenge; Complete Time: 16:00 cp Administered Medications: 14:24 Not Given (Physician Discretion): Decadron - [id number] mg IVP once cp 14:41 Drug: diphenhydrAMINE IVP 25 mg IVP once Route: IVP; Site: right antecubital; kc6 15:29 Follow up: Response: No adverse reaction 6 14:41 Drug: metoCLOPramide IVP 10 mg IVP once; over 1 to 2 minutes Route: IVP; Site: right [facility] antecubital; 15:29 Follow up: Response: No adverse reaction 6 14:41 Drug: NS 0.9% IV 1000 ml IV at 1000 ml once; to be given as a bolus over 60 minutes kc Route: IV; Rate: 1000 ml; Site: right antecubital; 16:09 Follow up: Response: No adverse reaction; IV Status: Completed infusion; IV Intake: kc6 1000ml 14:41 Drug: Acetaminophen PO 1000 mg PO once Route: PO; kc6 15:29 Follow up: Response: No adverse reaction kc6 16:09 Drug: Dexamethasone IVP 10 mg IVP once; (not to exceed 40 mg) Route: IVP; Site: right kc6 antecubital; 16:56 Follow up: Response: No adverse reaction kc6 16:09 Drug: Ketorolac IVP 15 mg IVP once Route: IVP; Site: right antecubital; kc6 16:55 Follow up: Response: No adverse reaction; Pain is decreased kc6 Disposition: 10/08 07:51 Chart complete. cp Disposition Summary: 10/07/24 16:23 Discharge Ordered Notes: Location: Home cp Problem: new cp Symptoms: have improved cp Condition: Stable cp Diagnosis - Headache cp - Dizziness and giddiness cp - Paresthesia of skin cp - Rash and other nonspecific skin eruption cp - Nausea with vomiting, unspecified cp Followup: cp - With: Emergency Department - When: As needed - Reason: Worsening of condition Discharge Instructions: - Discharge Summary Sheet cp - Dizziness cp - General Headache Without Cause cp - Rash, Adult cp Forms: - Medication Reconciliation Form cp - Antibiotic Education cp - Prescription Opioid Use cp - Patient Portal Instructions cp - Leadership Thank You Letter cp Prescriptions: - Zofran 4 mg Oral Tablet - take 1 tablet ORAL route every 12 hours As needed; 20 tablet; Refills: 0, cp Product Selection Permitted - Hydrocortisone 0.5 % Topical Cream - apply 1 application TOPICAL route every 12 hours As needed; 30 gram; Refills: cp 0, Product Selection Permitted Addendum: 10/13/2024 07:21 Co-signature as Attending Physician, Remigio Warner MD I agree with the assessment and c cage plan of care. Signatures: Dispatcher [employer] Remigio Hernadez MD MD cha Page, Corey, PA PA cp Sean Floyd RN RN jb4 Ann-Marie Amaya RN RN kc6 Corrections: (The following items were deleted from the chart) 10/07 13:57 13:55 Home Meds: THC; jb4 jb4 14:04 14:04 BASIC METABOLIC PANEL+C.LAB.BRZ ordered. EDMS EDMS 14:04 14:04 CBC+H.LAB.BRZ ordered. EDMS EDMS 14:04 14:04 HEPATIC FUNCTION+C.LAB.BRZ ordered. EDMS EDMS 14:04 14:04 MAGNESIUM+C.LAB.BRZ ordered. EDMS EDMS 14:04 14:04 PROTIME (+INR)+COAG.LAB.BRZ ordered. EDMS EDMS 14:04 14:04 Influenza Screen (A \T\ B)+BA.LAB.BRZ ordered. EDMS EDMS 14: 14:04 SARS-COV-2 Antigen Rapid+I.LAB.BRZ ordered. EDMS EDMS 14: 14:04 Urinalysis W/Microscopic+U.LAB.BRZ ordered. EDMS EDMS 14: 14:04 Test, Urine+UC.LAB.BRZ ordered. EDMS EDMS 14: 14:04 URINE DRUG SCREEN+UC.LAB.BRZ ordered. EDMS EDMS 14:04 14:04 Head Brain Wo Cont+CT.RAD.BRZ ordered. EDMS EDMS
[2024-10-08 03:05] VITALS: BP 124/70; TEMP 97.9; O2SAT 100
== END 2024-10-07 16:56 | disposition home or self-care (01) ==
LOC: ER 13:45
DX: R51.9 Headache, unspecified (principal); R42 Dizziness and giddiness; R20.2 Paresthesia of skin; R21 Rash and other nonspecific skin eruption; R11.2 Nausea with vomiting, unspecified; Z11.52 Encounter for screening for COVID-19
CPT/HCPCS: 36415; 70450; 80048; 80076; 81001; 81025; 83735; 84702; 85025; 85610; 86900; 86901; 87804; 87811; 96361; 96374; 96375; 99285; J1100; J1200; J2765; J7030